=== PATIENT | male | born 1950 | race Caucasian/White ===

== ENCOUNTER 2023-07-28 00:10 | Outpatient (RCR) | payer MEDICARE, SELFPAY ==
[2023-07-14] MEDS: Normal Saline Flush 10 ML SYR IVP (14:00)
[2023-07-28] MEDS: Normal Saline Flush 10 ML SYR IVP (11:31)
== END 2023-08-02 23:59 | disposition home or self-care (01) ==
LOC: INF 00:10
PROVIDERS: PCP Family Medicine; Visit Provider Internal Medicine Hematology & Oncology
DX: Z45.2 Encounter for adjustment and management of vascular access device (principal)
CPT/HCPCS: 96523

== ENCOUNTER 2023-08-25 01:46 | Outpatient (RCR) | payer MEDICARE, SELFPAY ==
[2023-08-11] MEDS: Normal Saline Flush 10 ML SYR IVP (12:02)
[2023-08-25] MEDS: Normal Saline Flush 10 ML SYR IVP (12:05)
== END 2023-09-01 23:59 | disposition home or self-care (01) ==
LOC: INF 01:46
PROVIDERS: PCP Family Medicine; Visit Provider Internal Medicine Hematology & Oncology
DX: Z45.2 Encounter for adjustment and management of vascular access device (principal)
CPT/HCPCS: 96523

== ENCOUNTER 2023-09-22 00:11 | Outpatient (RCR) | payer MEDICARE, SELFPAY ==
[2023-09-08] MEDS: Normal Saline Flush 10 ML SYR IVP (13:34)
[2023-09-22] MEDS: Normal Saline Flush 10 ML SYR IVP (12:40)
== END 2023-10-02 23:59 | disposition home or self-care (01) ==
LOC: INF 00:11
PROVIDERS: PCP Family Medicine; Visit Provider Internal Medicine Hematology & Oncology
DX: Z45.2 Encounter for adjustment and management of vascular access device (principal)
CPT/HCPCS: 96523

== ENCOUNTER 2023-10-06 00:34 | Outpatient (RCR) | payer MEDICARE, SELFPAY ==
--- OUTSIDE RECORDS SUMMARY | 2023-10-06 00:36 | XMS_ITS | Encounter Summary ---
[place] [address] Care Team Providers Care Automotive Software Engineer Name Role Phone Tristen Hunter MD Primary Care Provider [phone] Encounter Details Date Type Department Care Team (Late st Contact Info) Description 09/24/2023 Telephone [place] [phone] Laina Cope Social History Tobacco Use Types Packs/Day Years Used Date Smoking Tobacco: Former Cigarettes 963 - 1992 Smokeless Tobacco: Never Alcohol Use Standard Drinks/Week Comments Yes 7 (1 standard drink = 0.6 oz pur e alcohol) [facility] Utilities Answer Date Recorded In the past 12 months has th e electric, gas, oil, or water company threatened to shut off services in your home? No 06/04/2023 Overall Financial Resource Strain (CARDIA) Answe r Date Recorded How hard is it for you to pa y for the very basics like food, housing, medical care, and heating? Not hard at all 06/04/2023 Hunger Vital Sign Answer Date Recorded Within the past 12 months, y ou worried that your food would run out before you got the money to buy more. Never true 06/04/19 24 Within the past 12 months, t he food you bought just didn't last and you didn't have money to get more. Never true 06/04/2023 PRAPARE - Transportation Answer Date Re corded In the past 12 months, has l ack of transportation kept you from medical appointments or from getting medications? Yes 04/2023 In the past 12 months, has l ack of transportation kept you from meetings, work, or from getting things needed for daily living? No 06/04/2023 Housing Stability Vital Sign Answer Meek e Recorded In the last 12 months, was t here a time when you were not able to pay the mortgage or rent on time? No 06/04/2023 In the last 12 months, how many places have you lived? 1 06/04/2023 In the last 12 months, was t here a time when you did not have a steady place to sleep or slept in a [place] facility (including now)? No 06/04/2023 IPV Inpatient Questions Answer Date Recorded Does Anyone Try to Keep You From Having Contact with Others or Doing Things Outside Your Home? no 07/05/2023 Feels Threatened by Someone no 05/2023 Feels Unsafe at Home or Work/School no 07/05/2023 Physical Signs of Abuse Present no 07/05/2023 Sex and Gender Information Value Date Recorded Sex Assigned at Not on file Gender Identity Not on file Sexual Orientation Not on file documented as of this encounter Miscellaneous Notes * Telephone Encounter - Laina Cope - 09/24/2023 3:51 PM EDT LVM for patient advising 09/26 visit was canceled, when they call back they need B CAR DUP- R TCAR 1Y FU ANA [place] documented in this encounter Plan of Treatment Upcoming Encounters Date Type Department Care Team (Late st Contact Info) Description 10/11/2023 10:00 AM EDT [place] [phone] Giacomo Queen 10/11/2023 11:15 AM EDT Office Visit [place] [phone] Basim Glasgow MD [facility] [place] [address] 10/18/2023 9:00 AM EDT Office Visit Hematology/Oncology at [address] [phone] Cl Hess MD [facility] [place] [address] Yessi Renee [address] HEMATOLOGY AND ONCOLOGY [place], [place] [phone] 10/18/2023 9:30 AM EDT Infusion Hematology Oncology at [address] [phone] 10/24/2023 9:30 AM EDT Scheduled View Only Radiation Oncology at [address] [phone] Rad Nurse, [facility] 10/24/2023 10:00 AM EDT Office Visit Radiation Oncology at [address] [phone] Bigg Peters MD [address] [place] [address] DR RADIATION ONCOLOGY [place], [place] [phone] 11/01/2023 9:00 AM EDT Office Visit Hematology/Oncology at [address] [phone] Cl Hess MD [facility] [place] [address] Yessi Renee [address] HEMATOLOGY AND ONCOLOGY [place], [place] [address] 11/01/2023 9:30 AM EDT Infusion Hematology Oncology at [address] [phone] 12/24/2023 1:00 PM EDT TH Visit (TeleHealth) Radiation Oncology at [address] [address] Ping Moore PA [facility] DR [place] [address] documented as of this encounter Visit Diagnoses Not on filedocumented in this encounter Care Teams Automotive Software Engineer Relationship Specialty Start Date End Date Tristen Hunter MD [address] [place] [address] [place] [address] PCP - General Family Medicine 07/04/23 documented as of this encounter
--- OUTSIDE RECORDS SUMMARY | 2023-10-06 00:36 | XMS_ITS | Encounter Summary ---
Author Organization [facility] Address [facility] [place] [address] Care Team Providers Care Manager Rail Name Role Phone Tristen Hunter MD Primary Care Provider [phone] Encounter Details Date Type Department Care Team (Late st Contact Info) Description 10/01/2023 Orders Only Hematology [place] [address] [facility] [place] [address] Social History Tobacco Use Types Packs/Day Years Used Date Smoking Tobacco: Former Cigarettes 963 - 1992 Smokeless Tobacco: Never Alcohol Use Standard Drinks/Week Comments Yes 7 (1 standard drink = 0.6 oz pur e alcohol) [facility] Utilities Answer Date Recorded In the past 12 months has [employer], gas, oil, or water [employer] threatened to shut off services in your [...] place to sleep or slept in a custodial (including now)? No 06/04/2023 DH IPV Inpatient Questions Answer Date Recorded Does [...] on file documented as of this encounter Plan of Treatment Upcoming Encounters Date Type Department Care Team (Late st Contact Info) Description 10/11/2023 10:00 AM EDT Tech [place] [address] Giacomo Queen 10/11/2023 11:15 AM EDT Office Visit [place] [address] Basim Barr MD [facility] [place] [address] 10/18/2023 9:00 AM EDT Office Visit Hematology/Oncology at [address] [phone] Cl Hess MD [facility] [place] [address] Yessi Renee [address] HEMATOLOGY AND ONCOLOGY [place], [place] [phone] 10/18/2023 9:30 AM EDT Infusion Hematology Oncology at [address] [phone] 10/24/2023 9:30 AM EDT Scheduled View Only Radiation Oncology at [address] [phone] [facility] 10/24/2023 10:00 AM EDT Office Visit Radiation Oncology at [address] [phone] Bigg Peters MD [address] [place] [address] DR RADIATION ONCOLOGY [place], [place] [id number] 11/01/2023 9:00 AM EDT Office Visit Hematology/Oncology at [address] [phone] Cl Hess MD [facility] [place] [place] [address] [address] HEMATOLOGY AND ONCOLOGY [place], [place] [phone] 11/01/2023 9:30 AM EDT Infusion Hematology Oncology at [address] [phone] 12/24/2023 1:00 PM EDT TH Visit (TeleHealth) Radiation Oncology at [address] [phone] Ping Moore PA [facility] [place] [address] documented as of this encounter Visit Diagnoses Not on filedocumented in this encounter Care Teams Manager Rail Relationship Specialty Start Date End Date Tristen Hunter MD [address] [place] [address] [place] [address] PCP - General Family Medicine 07/04/23 documented as of this encounter
--- OUTSIDE RECORDS SUMMARY | 2023-10-06 00:36 | XMS_ITS | Encounter Summary ---
Author Organization [facility] [place] [address] Care Team Providers Care Chief Informatics Officer Name Role Phone Tristen Hunter MD Primary Care Provider [phone] Encounter Details Date Type Department Care Team (Latest Contact Info) Description 10/04/2023 Travel Social History Tobacco Use Types Packs/Day Years Used Date Smoking Tobacco: Former Cigarettes 4 30 1 963 1992 Smokeless Tobacco: Never Alcohol Use Standard Drinks/Week Comments Yes 7 (1 standard drink = 0.6 oz pur e alcohol) [facility] Utilities Answer Date Recorded In the past 12 months has e electric, gas, oil, or water company [...] place to sleep or slept in a intermediate (including now)? No 06/04/2023 IPV Inpatient Questions [...] AM EDT Tech [place] [address] Giacomo Queen 10/11/2023 11:15 AM EDT Office [place] [address] Basim Barr MD [facility] [place] [address] 10/18/2023 9:00 AM EDT Office Visit Hematology/Oncology at [address] [phone] Cl Hess MD [facility] [place] [place] [address] Yessi Renee APRN [address] [place] [address] DR HEMATOLOGY AND ONCOLOGY [place], [place] [phone] 10/18/2023 9:30 AM EDT Infusion Hematology Oncology at [address] [phone] 10/24/2023 9:30 AM EDT Scheduled View Only Radiation Oncology at [address] [phone] [facility] 10/24/2023 10:00 AM EDT Office Visit Radiation Oncology at [address] [phone] Bigg Peters MD [address] [place] [address] DR RADIATION ONCOLOGY [place], [place] [id number] 11/01/2023 9:00 AM EDT Office Visit Hematology/Oncology at [address] [phone] Cl Hess MD [facility] [place] [place] [address] Yessi Renee APRN [address] [place] [address] DR HEMATOLOGY AND ONCOLOGY [place], [place] [phone] 11/01/2023 9:30 AM EDT Infusion Hematology Oncology at [address] [phone] 12/24/2023 1:00 PM EDT TH Visit (TeleHealth) Radiation Oncology at [address] [phone] Ping Moore PA [facility] DR [place]EMATOLOGY [place] [address] documented as of this encounter Visit Diagnoses Not on filedocumented in this encounter Care Teams Chief Informatics Officer Relationship Specialty Start Date End Date Tristen Hunter MD [address] [place] [address] [place] [address] PCP - General Family Medicine 07/04/23 documented as of this encounter
--- OUTSIDE RECORDS SUMMARY | 2023-10-06 00:36 | XMS_ITS | Encounter Summary ---
Author Organization [facility] [place] [address] Care Team Providers Care Certified Nursing Assistant Instructor Name Role Phone Tristen Hunter MD Primary Care Provider [phone] Encounter Details Date Type Department Care Team (Latest Contact Info) Description 09/20/2023 10:00 AM EDT Clinical Support Hematology/Oncology at [address] [phone] [facility] DR [place] [address] Malignant neoplasm of head of pancreas Social History Tobacco Use Types Packs/Day Years Used Date Smoking Tobacco: Former Cigarettes 4 30 1 963 - 1992 Smokeless Tobacco: Never Alcohol Use Standard Drinks/Week Comments Yes 7 (1 standard drink = 0.6 oz pur e alcohol) [facility] Utilities Answer Date Recorded In the past 12 months has [employer], gas, oil, or water [employer] threatened to shut off services in your [...] place to sleep or slept in a detention (including now)? No 06/04/2023 DH IPV Inpatient [...] on file documented as of this encounter Progress Notes * Lupe Velasquez, RD - 09/20/2023 10:00 AM EDT Nutrition Note Spoke with Wero in infusion today. Patient is being starting C6 of Mfolfirinox for pancreatic cancer. Patient requested omission of dexamethasone. Plan for 8 cycles prior to XRT. Patient reports he is eating well and has a good appetite. His weight continues to trend up, with a3# gain in past two weeks 09/05-09/19 and up a total of 28# in past 2.5 months. Patient got a new phone which connects with his Dexcom CGM and can report his BG to him aloud. He had been relying on his brother to read his BG values to him. He has been taking 36 units Lantus in morning and 4-12 units short acting insulin four times daily. Patient his taking Creon 24: 2-3 units per meal (recently increased this from always 2 per meal). He has 1-2 BM's per day which he calls formed. He cannot see well to evaluate appearance of stools indetail. He says he continues to have very foul smelling gas. He has tried Gas-X and Guerrero-O for thisbut neither seem to help. Wt Readings from Last 10 Encounters: 09/20/23 92.4 kg (203 lb 12.8 oz) 09/06/23 91 kg (200 lb 9.6 oz) 08/23/23 85.7 kg (189 lb) 08/09/23 85.1 kg (187 lb 9.6 oz) 07/26/23 83.7 kg (184 lb 9.6 oz) 07/12/23 82.5 kg (181 lb 12.8 oz) 07/05/23 79.8 kg (176 lb) 06/07/23 83 kg (183 lb) 07/31/22 103.9 kg (229 lb) 09/21/21 106.3 kg (234 lb 6.4 oz) BMI 28.43 3# gain 09/05-09/19 28# re-gain in past 2.5 months 07/04-09/19 44# (23.2% body weight) loss over past year 07/31/22-07/05/23 Lost 85# total per patient Diet: Breakfast: corned beef hash, 2 eggs, biscuits OR 1/4 pound hot sausage 2 eggs. Takes 3 with this. Lunch: 4 slices of balogne with 2-3 slices of cheese (no bread) 2 creon Dinner: Brother cooks, pork chop with rice and gravy. 3 Creon Drinking 2-3 L fluids daily, mostly water Medications: Creon 24 (2-3 with meals and 1 with snacks), long acting insulin (36 units in AM), SS insulin, zofran prn, compazine prn, imodium, chlorthalidone, omeprazole, tamsulosin, omega 3, amlodipine, carvedilol, lisinopril, folic acid, imdur, lipitor, aspirin Labs on 09/19: H/H 10.4/32, platelets 152,000, BUN/Creat 17/0.69, BG 106 on dexcom this AM, Cl 108 Nutrition Problem: Involuntary weight loss and altered GI function related to pancreatic cancer as evidenced by PERT (Creon 24: 2 per meal and one per snack) and 44# (23.2% body weight) loss over past year 07/31/22-07/05/23 Improved weight (28# re-gain in past 2.5 months) but still having malodorous gas Recommendations: Continue with adequate intake of meals and snacks, though with attention to consistent carbohydrateintake and limiting added sugars for glycemic control as patient has IDDM. He can now more closely monitor his BG himself with CGM connecting to his new phone. Creon 24: suggested taking 3 per meal consistently, instead of 2-3. His meals sound fairly high in fat content, so may need to further increase to 4 per meal if his gas problem persists. Would suggest 1-2 capsules per snack. Will f/u on 10/03 documented in this encounter Plan of Treatment Upcoming Encounters Date Type Department Care Team (Late st Contact Info) Description 10/11/2023 10:00 AM EDT Tech [place] [address] Giacomo Queen 10/11/2023 11:15 AM EDT Office Visit [place] [address] Basim Barr MD [facility] [place] [place] [address] 10/18/2023 9:00 AM EDT Office Visit Hematology/Oncology at [address] [phone] Cl Hess MD [facility] [place] [address] Yessi Renee APRN [address] [place] [address] DR HEMATOLOGY AND ONCOLOGY [place], [place] [phone] 10/18/2023 9:30 AM EDT Infusion Hematology Oncology at [address] [phone] 10/24/2023 9:30 AM EDT Scheduled View Only Radiation Oncology at [address] [phone] [facility] 10/24/2023 10:00 AM EDT Office Visit Radiation Oncology at [address] [phone] Bigg Peters MD [address] [place] [address] DR RADIATION ONCOLOGY [place], [place] [phone] 11/01/2023 9:00 AM EDT Office Visit Hematology/Oncology at [address] [phone] Cl Hess MD [facility] [place] [address] Yessi Renee APRN [address] [place] [address] DR HEMATOLOGY AND ONCOLOGY [place], [place] [phone] 11/01/2023 9:30 AM EDT Infusion Hematology Oncology at [address] [phone] 12/24/2023 1:00 PM EDT TH Visit (TeleHealth) Radiation Oncology at [address] [phone] Ping Moore PA [facility] [place] [address] documented as of this encounter Visit Diagnoses Diagnosis Malignant neoplasm of head of pancreas documented in this encounter Care Teams Certified Nursing Assistant Instructor Relationship Specialty Start Date End Date Tristen Hunter MD [address] [place] [address] [place] [address] PCP - General Family Medicine 07/04/23 documented as of this encounter
--- OUTSIDE RECORDS SUMMARY | 2023-10-06 00:36 | XMS_ITS | Encounter Summary ---
Author Organization [facility] [place] [address] Care Team Providers Care Sheet Cutter Name Role Phone Tristen Hunter MD Primary Care Provider [phone] Encounter Details Date Type Department Care Team (Late st Contact Info) Description 10/04/2023 10:00 AM EDT Clinical Support Hematology/Oncology at [address] [phone] [facility] DR [place] [address] Arrived Social History Tobacco Use Types Packs/Day Years Used Date Smoking Tobacco: Former Cigarettes 4 30 1 1992 Smokeless Tobacco: Never Alcohol Use Standard Drinks/Week Comments Yes 7 (1 standard drink = 0.6 oz pur e alcohol) [facility] Utilities Answer Date Recorded In the past 12 months has [employer], gas, oil, or water [employer] threatened to shut off services in your [...] place to sleep or slept in a usp (including now)? No 06/04/2023 IPV Inpatient Questions [...] AM EDT Tech [place] [address] Giacomo Queen 10/11/2023 11:15 AM EDT Office [place] [address] Basim Barr MD [facility] [place] [address] 10/18/2023 9:00 AM EDT Office Visit Hematology/Oncology at [address] [phone] Cl Hess MD [facility] [place] [address] Yessi Renee [address] HEMATOLOGY AND ONCOLOGY [place], [place] [id number] 10/18/2023 9:30 AM EDT Infusion Hematology Oncology at [address] [phone] 10/24/2023 9:30 AM EDT Scheduled View Only Radiation Oncology at [address] [phone] [facility] 10/24/2023 10:00 AM EDT Office Visit Radiation Oncology at [address] [phone] Bigg Peters MD [address] [place] [address] DR RADIATION ONCOLOGY [place], [place] [id number] 11/01/2023 9:00 AM EDT Office Visit Hematology/Oncology at [address] [phone] Cl Hess MD [facility] [place] [address] Yessi Renee [address] HEMATOLOGY AND ONCOLOGY [place], [place] [id number] 11/01/2023 9:30 AM EDT Infusion Hematology Oncology at [address] [phone] 12/24/2023 1:00 PM EDT TH Visit (TeleHealth) Radiation Oncology at [address] [phone] Ping Moore PA [facility] [place] [address] documented as of this encounter Visit Diagnoses Not on filedocumented in this encounter Care Teams Sheet Cutter Relationship Specialty Start Date End Date Tristen Hunter MD [address] [place] [address] [place] [address] PCP - General Family Medicine 07/04/23 documented as of this encounter
--- OUTSIDE RECORDS SUMMARY | 2023-10-06 00:36 | XMS_ITS | Encounter Summary ---
Author Organization [facility] Address [facility] [place] [address] Care Team Providers Care Milling Machinist Name Role Phone Tristen Hunter MD Primary Care Provider [phone] Reason for Referral * Diagnostic Test (Routine) - Authorized Specialty Diagnoses / Procedures Referred By Marques livignston Referred To Contact Radiology Diagnoses Malignant neoplasm of head of pancreas Procedures CT Chest Abdomen Pelvis w Contrast (Generic) Cl Hess MD [facility] [place] [address] Referral ID Status Reason Start Date Expiration Date Visits Requested Visits Authorized [id number] Authorized Specialty Service Requested 10/04/2023 04/05/2025 1 1 Encounter Details Date Type Department Care Team (Late st Contact Info) Description 10/04/2023 9:00 AM EDT Office Visit Hematology/Oncology at [address] [phone] Cl Hess MD [facility] [place] [address] Yessi Renee, [address] HEMATOLOGY AND ONCOLOGY [place], [place] [id number] Malignant neoplasm of head of pancreas Social History Tobacco Use Types Packs/Day Years Used Date Smoking Tobacco: Former Cigarettes 4 30 1 963 - 1992 Smokeless Tobacco: Never Alcohol Use Standard Drinks/Week Comments Yes 7 (1 standard drink = 0.6 oz pur e alcohol) [facility] Utilities Answer Date Recorded In [...] place to sleep or slept in a long-term (including now)? No 06/04/2023 DH IPV Inpatient [...] on file documented as of this encounter Last Filed Vital Signs Vital Sign Reading Time Taken Comments Blood Pressure 115/61 10/04/2023 9:03 AM EDT Pulse 71 10/04/2023 9:03 AM EDT Temperature 36.7 ??C (98 ??F) 10/04/2023 9:03 AM EDT Respiratory Rate 18 10/04/2023 9:03 AM EDT Oxygen Saturation 99% 10/04/2023 9:03 AM EDT Inhaled Oxygen Concentration - - Weight 91.5 kg (201 lb 12.8 oz) 10/04/2023 9:03 AM EDT Height 180.2 cm (5' 10.95) 10/04/2023 9:03 AM E DT Body Mass Index 28.19 10/04/2023 9:03 AM EDT documented in this encounter Progress Notes * Cl Hess MD - 10/04/2023 9:00 AM EDT Subjective Patient ID: Wero Sadler is 73 y.o. Problem List: Pancreatic cancer, T3 (per EUS report), N0 M0 A. Reportedly was noted to have a cystic lesion in the head of the pancreas in 2020(CT and MRI wereconcerning for IPMN). F/u imaging was recommended for two years followed by annual and then every two years, but not done. B. Presented 04/2023 with midsternal chest pain and SOB and had jaundice. Imaging showed a pancreatic head cystic mass, 3.8 cm with biliary and pancreatic ductal dilation MRI abd 04/19/23 - Impression: Biliary ductal dilation and pancreatic ductal dilation. Pancreatic head cystic mass present in the area 3.8 cm, however unclear if this is the site of obstruction. Recommend EUS/ERCP and tissue sampling to evaluate this cystic mass and to detect an MRI occult periampullary solid mass. Upper EUS 04/29/23: There is a large partially cystic and partially solid mass lesion of the pancreatic head measuring 51 x 26.4 mm. The solid component portion of this mass lesions, where there is cut off of the bile duct with associated stricture, measures 34.1 x 27.1 mm. This solid component demonstrates hypoechoicchange and outer margin irregularity consistent with T3 disease. There is a segment of loss of interface with the SMV. No involvement of the SMA or IVC was appreciated. No obvious portal vein involvement was noted. No periduodenal or perilesional adenopathy was appreciated Impression: [id number] pancreas head mass lesion with biliary and pancreatic ductal dilation Path - Head of pancreas mass, biopsy: Scant epithelium with mild atypia, suspicious for adenocarcinoma ERCP with sphincterotomy and metal stent placement C. CT chest 05/22/23 - IMPRESSION: No clear evidence of metastatic disease to the thorax. Peripheral areas of scarring and micronodules. Bibasilar round atelectasis and pleural irregularity, likely pleural parenchymal scarring. CT abd 05/22/23 - IMPRESSION: Ill-defined hypoenhancing solid masslike lesion in head of pancreas associated with a cystic lesion, suspicious for pancreatic neoplasm. There is adjacent contour abnormality of the portosplenic confluence/SMV and less than 180 degree abutment of the SMA. Additionally, there is possible adjacent duodenal involvement with findings suggestive of partial gastroduodenal obstruction. Correlate with recent performed endoscopy. No evidence of distant metastatic disease in the abdomen. PET scan 05/27/23 - Impression: 1. Activity at the pancreatic head which could be reactive to the new metallic biliary stent or active primary neoplasm, correlate with ERCP results 2. No pathologic uptake to suggest active distant metastasis D. GITB 06/18/23. Imaging:CT from 05/2023 reviewed. Will request second read. There is a 3.5 x 2.8 soft tissue lesion with an adjacent cystic lesion. The soft tissue component appears to be associated with 90-180 degree abutment of the SMA and abutment of the SMV. The cystic lesion abuts the portal vein. There is no definite evidence of metastatic disease. The primary tumor is considered borderlineresectable Pathology/Histology: requested, not available for review Stage: Clinical Data (Exams, Labs, etc.): Molecular Pathology Results:not available Clinical Trial Availability: None Options Discussed: Recommendations: Referral to pancreatobiliary surgery for assessment of medical resectability (again primary is considered borderline resectable). Per Dr. Balbuena, recommend diagnostic laparoscopy. Assuming no evidence of metastatic disease, recommend neoadjuvant chemotherapy x 4 months, followed by radiation and re-evaluation for surgery - assuming no evidence of metastatic disease/disease progression on interim staging evaluation. E. [facility] second read of CT c/a/p from 05/22/23 - IMPRESSION 1. Mixed cystic and solid mass centered in the pancreatic head, as detailed above. 2. Few scattered sub-5 mm pulmonary nodules are indeterminate. These are likely of an infectious orinflammatory etiology, but do remain indeterminate in the setting of a primary malignancy. Attention on follow-up is recommended. F. Diagnostic laparoscopy 07/05/23 - Findings: There was no evidence of metastatic disease. G. 07/12/23 - Began therapy with mFolfirinox H. CT c/a/p 09/02/23 Chest - Impression: 1. Debris within the trachea 2. Trace right pleural effusion. Bibasilar reticular markings similar to prior study 3. Coronary artery disease. Atherosclerotic disease Abd/pelvis - Impression: 1. Dilated air filled intrahepatic biliary ducts and dilated pancreatic duct with cystic lesion in the pancreatic head similar to prior study. Biliary stent in place 2. Markedly distended contrast and food filled stomach 3. Constipation 2. Colorectal cancer S/p resection in 2008 S/p adjuvant chemotherapy with Fluorouracil (no oxaliplatin per patient) 3. Diabetes mellitus 4. Hypercholesterolemia 5. Hypertension 6. ASCVD (arteriosclerotic cardiovascular disease) S/p 3x CABG 7. Primary osteoarthritis of hip s/p L JIMI, posterior, Dr. Wu, 10/10/20 S/p R JIMI S/p bilateral TKA 8. Malignant neoplasm of prostate Per Dr. Peters's note - High Risk Prostate Cancer (Gl 6, PSA 21, cT1c / mrT3a) S/p ADT and radiation Completed RT 09/2021 PSA 06/2022 - 0.05 9. Obstructive sleep apnea syndrome; per pt this has been better since he lost weight 10. 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 PVDz S/p bilateral carotid endarterectomy S/p bilateral femoral endarterectomies 13. History of cerebrovascular accident Lost his vision in his right eye 2019 due to CVA HPI Wero Sadler is seen for evaluation and management of pancreatic cancer. The history is summarized above. On 07/12/23, he began therapy with mFolfirinox, s/p 6 cycle. Wero is by himself in clinic today. He is doing well and tolerating chemotherapy well. No significant problems with nausea. He is eating well and his weight is in the same range allowing for fluctuation. His BS's have been better controlled although he has had some low values. His AM Tresiba insulin has been lowered as a result and that has helped. His stools tend to be loose and he goes a couple of times per day. He is taking creon with meals (2 with meals and 1 snacks). 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 He has had some cold sensitivity but overall no worsening of symptoms. 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 Constitutional: General: He is not in acute distress. HENT: Head: Normocephalic and atraumatic. Eyes: General: No scleral icterus. Cardiovascular: Rate and Rhythm: Normal rate. Pulmonary: Effort: No respiratory distress. Musculoskeletal: General: No swelling. Skin: General: Skin is warm and dry. Findings: No rash. Neurological: General: No focal deficit present. Mental Status: He is alert. Coordination: Coordination normal. Psychiatric: Mood and Affect: Mood normal. Labs: WBC/ANC - 4., Hgb/Hct - 10.1/31.7, Plts - 170,000. BUN/Cr - 16/0.69. Alb - 3.3. Lytes and LFTs, o/w unremarkable CA 19-9 10/03/23 09/19/23 151 08/30/23 242 08/08/23 317 07/26/23 06/25/23 390 05/22/23 684.7 Assessment and Plan Weor Sadler is 73 yo, seen for evaluation and management of pancreatic cancer. He has a h/o multiple medical problems as above, including colon cancer, prostate cancer, ASCVD, PVDz s/p carotid endarterectomy, prior CVA, DM and others. 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 While in [facility], he presented with chest pain and SOB and was jaundiced. Imaging showed a cystic pancreatic head mass. An Upper EUS was done on 04/29/23 and showed a large partially cystic and partially solid mass lesion of the pancreatic head with SMV abutment. Bx of the pancreatic head mass was read as suspicious for adenocarcinoma. An ERCP with stent placement was performed the same day. Staging CT c/a/p did not show evidence of metastatic disease. Micronodules were noted in the lungs. The primary tumor was associated with adjacent contour abnormality of the portosplenic confluence/SMV and less than 180 degree abutment of the SMA. There was possible adjacent duodenal involvement with findings suggestive of partial gastroduodenal obstruction. He met with [facility] in [place] Per patient, the tumor was felt to be surgically removable, although he says that upfront chemotherapy was also discussed. We met on 06/07/23. Pathology was requested for review at [facility] and we also requested that images be sent. We discussed a plan to review his case and images at our GI Tumor Board for assessment of resectablity and for a referral to Dr. Balbuena or Dr. Espinosa. We discussed that we generally recommend a diagnostic laparoscopy to complete the staging. Assuming no evidence of metastatic disease, our approachto therapy is generally one of neoadjuvant chemotherapy x 4 months with restaging at 2 and 4 months. Assuming no evidence of distant metastatic disease, radiation may be recommended depending on the resectability determination. There would then be an evaluation for surgery. We talked about systemic therapy options, including mFolfirinox and gemcitabine/abraxane. For patients with good PS, our preference is generally for mFolfirinox. Our thought is for mFolfirinox. I have concerns about his pre- existing neuropathy which we will need to follow closely and will consider r educing the oxaliplatin dose. We reviewed the schedule of therapy with mFolfirinox (irinotecan, oxaliplatin and leucovorin are given day 1 followed by a 48 hour infusion of 5FU with cycles repeated every two weeks; irinotecan dose is 150 mg/m2 and there is no bolus 5FU on day 1). Because of the infusional component of therapy, a mediport is required. This is generally placed at the time of laparoscopy. We talked about potential side effects of therapy, including alopecia, nausea/vomiting, diarrhea, stomatitis, dehydration, taste change, fatigue, myelosuppression with associated risks of infection, bleeding and dose delays, peripheral neuropathy which may be exacerbated by cold exposure but which may be cumulative or perm anent even in the absence of cold, hypersensitivity reactions, angina/NC and others. He was given an informational handout regarding mFolfirinox. We reviewed his case at [facility] on 06/18/23. The Ct from 05/22/23 was available for review. There is a mixed cystic and solid lesion centered at the pancreatic head. The solid component abuts the SMA, less than 180 degrees. The cystic component is associated with mass effect upon the SMV and portal veinwithout luminal narrowing. The primary tumor was considered borderline resectable. The recommendation was for a diagnostic laparoscopy to complete the staging. Assuming no evidence of metastatic disease, consider neoadjuvant chemotherapy x 4 months followed by radiation and then re-evaluation for surgery assuming no evidence of disease progression or metastatic disease on restaging. He met with Dr. Balbuena on 06/25/23. He felt the tumor was resectable but did recommend neoadjuvant therapy. A diagnostic laparoscopy was done on 07/05/23 - no evidence of metastatic disease. A mediport was placed the same day. PGX showed no variant in DPYD. 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 Per our Clinical Pharmacist, a 30% reduction in irinotecandose is recommended. A referral was made to the [facility] for discussion of genetic testing and he met with Tao Cardenas on 06/13/23. The plan was for a blood draw in [place] once he starts his infusions. If genetic testing showed a BRCA or PALB2 mutation, he may be eligible for a clinical trial looking at theuse olaparib following completion of chemotherapy and surgery to see if this improves RFS. He will be followed also by our clinical oil driller, Lupe Velasquez. On 07/12/23 he began neoadjuvant therapy with mFolfirinox. 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 He has received 6 cycles. He is tolerating therapy well. We will go ahead with cycle 7 today and see him intwo weeks for consideration of cycle 8. That would be the last planned cycle of therapy. We will get a CT after that and, assuming that is ok, plan for radiation. documented in this encounter Plan of Treatment Upcoming Encounters Date Type Department Care Team (Late st Contact Info) Description 10/11/2023 10:00 AM EDT Tech [place] [phone] Giacomo Queen 10/11/2023 11:15 AM EDT Office Visit V[place] [phone] Basim Barr MD [facility] [place] [address] 10/18/2023 9:00 AM EDT Office Visit Hematology/Oncology at [address] [phone] Cl Hess MD [facility] [place] [address] Yessi Renee APRN [address] [place] [address] DR HEMATOLOGY AND ONCOLOGY [place], [place] [phone] 10/18/2023 9:30 AM EDT Infusion Hematology Oncology at [address] [phone] 10/24/2023 9:30 AM EDT Scheduled View Only Radiation Oncology at [address] [phone] St La Nena Champagne 10/24/2023 10:00 AM EDT Office Visit Radiation Oncology at [address] [phone] Bigg Peters MD [address] [place] [address] DR RADIATION ONCOLOGY [place], [place] [id number] 11/01/2023 9:00 AM EDT Office Visit Hematology/Oncology at [address] [phone] Cl Hess MD [facility] [place] [address] Yessi Renee APRN [address] [place] [address] DR HEMATOLOGY AND ONCOLOGY [place], [place] [phone] 11/01/2023 9:30 AM EDT Infusion Hematology Oncology at [address] [phone] 12/24/2023 1:00 PM EDT TH Visit (TeleHealth) Radiation Oncology at [address] [phone] Ping Moore PA [facility] [place] [address] Scheduled Orders Name Type Priority Associated Diagnoses Orde r Schedule CT Chest Abdomen Pelvis w Contrast (Generic) Imaging Routine Malignant neoplasm of head of pancreas Expected: 10/29/2023 (Approximate), Expires: 04/29/2024 documented as of this encounter Visit Diagnoses Diagnosis Malignant neoplasm of head of pancreas documented in this encounter Care Teams Milling Machinist Relationship Specialty Start Date End Date Tristen Huntre MD [address] [place] [address] [place] [address] PCP - General Family Medicine 07/04/23 documented as of this encounter
--- OUTSIDE RECORDS SUMMARY | 2023-10-06 00:36 | XMS_ITS | Encounter Summary ---
Author Organization [facility] Address [facility] [place] [address] Care Team Providers Care Principal Systems Architect Name Role Phone Tristen Hunter MD Primary Care Provider [phone] Reason for Visit * Reason Comments Chemotherapy * Treatment/Therapy Plan Authorization (Routine) - Authorized Specialty Diagnoses / Procedures Referred By Marques livingston Referred To Contact Diagnoses Malignant neoplasm of prostate Cl Hess MD [facility] [place] [address] Stj Hem Onc Infusion [address] [place] [phone] Referral ID Status Reason Start Date Expiration Date V isits Requested Visits Authorized [id number] Authorized 07/11/2023 07/10/2024 99 99 Encounter Details Date Type Department Care Team (Late st Contact Info) Description 10/04/2023 9:30 AM EDT Infusion Hematology Oncology at [address] [phone] Malignant neoplasm of prostate Social History Tobacco Use Types Packs/Day Years Used Date Smoking Tobacco: Former Cigarettes 1992 Smokeless Tobacco: Never Alcohol Use Standard Drinks/Week Comments Yes 7 (1 standard drink = 0.6 oz pur e alcohol) [facility] Utilities Answer Date Recorded In the past 12 months has [employer] electric, gas, oil, or water company threatened [...] place to sleep or slept in a senior living (including now)? No 06/04/2023 DH IPV Inpatient [...] as of this encounter Progress Notes * Booker Maldonado, RN - 10/04/2023 9:30 AM EDT INFUSION THERAPY ADMINISTRATION NOTES DIAGNOSIS: Pancreatic CA CYCLE #: C7D1 REASON FOR VISIT: MODIFIED FOLFIRINOX infusion and initiation of continuous home 5FU infusion via CADD pump provided by [employer] Conteh met with MD Hess prior to infusion. Dex as premed was held per Marilee. No further complaints. OBJECTIVE LAB DATA: Labs reviewed and found adequate for treatment. BUN 16; Creat 0.69; WBC 4.0; PLT 170; ANC2.5 Pre administration: Chemotherapy orders independently verified for drug name, route, and dosage per patient's height, weight and BSA by BOOKER FRANCOIS, RN , Larisa Henry RN , Olga Arshad RN, and Leandra Johnson At time of administration Patient identity verified using patient's name and date of at the chair/bedside by double RN check with Roberto Arshad RN just prior to initiating the patient's home infusion chemotherapy via CADDpump provided by [employer]. Amount infused verified by double RN check after 15 minutes and appropriate amount had infused. 0.7 ccs went in. Pt will be disconnected at [facility] on Saturday10/06/23 at 1230 pm. REACTIONS (DESCRIPTION, TIME, INTERVENTION AND EFFECTIVENESS) none ASSESSMENT Wero was awake, alert and tolerated treatment well. Port checked for good blood return and patency per use. PLAN Pump disconnect at [facility] Saturday documented in this encounter Plan of Treatment Upcoming Encounters Date Type Department Care Team (Late st Contact Info) Description 10/11/2023 10:00 AM EDT Tech [place] [phone] Giacomo Queen 10/11/2023 11:15 AM EDT Office [place] [address] Basim Barr MD [facility] [place] [address] 10/18/2023 9:00 AM EDT Office Visit Hematology/Oncology at [address] [phone] Cl Hess MD [facility] [place] [address] Yessi Renee APRN [address] [address] DR [place] [address] 10/18/2023 9:30 AM EDT Infusion Hematology Oncology at [address] [phone] 10/24/2023 9:30 AM EDT Scheduled View Only Radiation Oncology at [address] [phone] Rad NurseSt Deutsch 10/24/2023 10:00 AM EDT Office Visit Radiation Oncology at [address] [phone] Bigg Peters MD [address] [address] DR RADIATION ONCOLOGY [place], [place] [address] 11/01/2023 9:00 AM EDT Office Visit Hematology/Oncology at [address] [phone] Cl Hess MD [facility] [place] [address] HEMATOLOGY AND ONCOLOGY [place], [place] [address] 11/01/2023 9:30 AM EDT Infusion Hematology Oncology at [address] [phone] 12/24/2023 1:00 PM EDT TH Visit (TeleHealth) Radiation Oncology at [address] [phone] Ping Moore PA [facility] [place] [address] documented as of this encounter Visit Diagnoses Diagnosis Malignant neoplasm of prostate documented in this encounter Administered Medications Inactive Administered Medications - up to 3 most recent administrations Medication Order MAR Action Action Date Dose Rate Site aprepitant (Cinvanti) (7.2 mg/mL) injection emulsion 130 mg 130 mg, Intravenous, Administer over 2 Minutes, ONCE, 1 dose, On Sat10/04/23 at 0945, Alternative administration of IV push over 2 minutes is a recommendation from the courier driver. Administer prior to chemotherapy., Routine Given 10/04/2023 10:09 AM EDT 130 mg atropine (0.1 mg/mL) injection 0.5 mg 0.5 mg, Intravenous, Administer over 1 Minutes, ONCE, 1 dose, On Sat10/04/23 at 0945, Administer prior to IRINOtecan, Routine Given 10/04/2023 12:59 PM EDT 0.5 mg fluorouraciL (AdruciL) in sodium chloride 0.9% 138 mL infusion (46 Hour - For Home Use) 5,160 mg 5,160 mg (2,400 mg/m2/dose ? 2.15 m2 Treatment Plan BSA from Recorded weight), Intravenous, ONCE, 1 dose, On Sat10/04/23 at 1415, Administer over 46 Hours, Warning Vesicant/Irritant Medication To be infused via an ambulatory infusion CADD Colon pump continuously IV at 3 mL/hr for 46 hours. Pump contains a 46 hour supply and provides a daily dose of 1,200 mg/m2/day = 2,400 mg/m2 IV over 46 hours. Given 10/04/2023 2:47 PM EDT 5,160 mg 3 mL/hr IRINOtecan (Camptosar) 220 mg in dextrose 5% 511 mL infusion 220 mg (rounded from 225.75 mg = 105 mg/m2/dose ? 2.15 m2 Treatment Plan BSA from Recorded weight), Intravenous, ONCE, 1 dose, On Sat10/04/23 at 1045, Administer over 90 Minutes, Warning Vesicant/Irritant Medication Administer 30 minutes after the start of the leucovorin. New Bag 10/04/2023 1:02 PM EDT 220 mg 340.7 mL/hr leucovorin (Wellcovorin) 350 mg in dextrose 5% 85 mL infusion 350 mg, Intravenous, ONCE, 1 dose, On Sat10/04/23 at 1045, Administer over 120 Minutes, Administer upon completion of OXALIplatin infusion. Do not administer at a rate faster than 160 milligrams/minute. New Bag 10/04/2023 12:22 PM EDT 350 mg 42.5 mL/hr OXALIplatin (Eloxatin) 150 mg in dextrose 5% 280 mL infusion 150 mg (rounded from 146.2 mg = 68 mg/m2/dose ? 2.15 m2 Treatment Plan BSA from Recorded weight), Intravenous, ONCE, 1 dose, On Sat10/04/23 at 1045, Administer over 85 Minutes, Administer first. Compatible with dextrose-containing solution only. Warning Vesicant/Irritant Medication New Bag 10/04/2023 10:45 AM EDT 150 mg 197.6 mL/hr palonosetron (Aloxi) (0.05 mg/mL) injection 0.25 mg 0.25 mg, Intravenous, ONCE, 1 dose, On Sat10/04/23 at 0945, Administer over 30 seconds., Routine Given 10/04/2023 10:05 AM EDT 0.25 mg documented in this encounter Care Teams Principal Systems Architect Relationship Specialty Start Date End Date Tristen Hunter MD [address] [place] [address] [place] [address] PCP - General Family Medicine 07/04/23 documented as of this encounter
--- OUTSIDE RECORDS SUMMARY | 2023-10-06 00:36 | XMS_ITS ---
[place] [address] Care Team Providers Care Major Sales Associate Name Role Phone Tristen Hunter MD Primary Care Provider Active Problems Problem Noted Date Diagnosed Date Malignant neoplasm of head of pancreas 4 Bradycardia 11/18/2021 Bladder dysfunction/retention with risk of stret ch injury 11/18/2021 s/p Right JIMI (Posterior), Dr. 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 05/04/2021 Anterior ischemic optic neuropathy 05/04/2021 Carcinoma of prostate 05/04/2021 Dysphagia 05/04/2021 Hearing loss 05/04/2021 History of cerebrovascular accident 05/04/2021 History of claudication 05/04/2021 BPH (benign prostatic hyperplasia) 02/02/2021 Obstructive sleep apnea syndrome 01/27/2021 Malignant neoplasm of prostate 01/16/2021 Cancer Staging:Clinical:Stage IIIA(cT1c, cN0, cM0, PSA: 21.6, Grade Group: 1) - Signed by Bigg Peters MD on 01/18/2021 Benign prostatic hyperplasia 01/16/2021 Postoperative urinary retention 10/12/2020 Primary osteoarthritis of left hip 10/10/2020 s/p L JIMI, posterior, Dr. Wu, 10/10/20 08/0 11/2020 ASCVD (arteriosclerotic cardiovascular disease) 10/06/2020 History of carotid endarterectomy 08/18/2020 Colorectal cancer 07/22/2019 Diabetes mellitus 07/22/2019 Hypercholesterolemia 07/22/2019 Hypertension -Labile blood pressurses 07/22/2019 Current Oncology Plans BCN AMB ONC GI PANCREATIC CANCER - MODIFIED FOLFIRINOX (IRINOtecan 150 MG/M2) * Plan Start Date:07/12/2023 Plan Provider:Cl Hess MD Linked Problems Malignant neoplasm of prosta te Treatment Medications Current Day (Day 1 , Cycle 8 - Planned for 10/18/2023) Next Day (Day 3, Cycle 8 - Planned for 10/20/2023) fluorouraciL (AdruciL) in sodium chloride 0.9% 138 mL infusion (46 Hour - For Home Use)IRINOtecan (Camptosar) in dextrose 5% 500 mL infusionIRINOtecan (Camptosar) Recon Solnleucovorin (Wellcovorin) in dextrose 5% or sodium chloride 0.9% for infusionoxaliplatin (Eloxatin)OXALIplatin (Eloxatin) in dextrose 5% 250 mL infusionPump Disconnect: Home Infusion fluorouraciL (AdruciL) in sodium chloride 0.9% 138 mL infusion (46 Hour - For Home Use) 5,160 mgIRINOtecan (Camptosar) 220 mg in dextrose 5% 511 mL infusionleucovorin (Wellcovorin) 350 mg in dextrose 5% 85 mL infusionOXALIplatin (Eloxatin) 150 mg in dextrose 5% 280 mL infusion Home Infusion: Pump Disconnect LEUPROLIDE (LUPRON DEPOT) 7.5 MG MONTH* Plan Start Date:01/31/2021 Plan Provider:Bigg Peters MD Linked Problems Malignant neoplasm of prosta te Treatment Medications No medications scheduled. ?LEUPROLIDE (LUPRON DEPOT) 22.5 MG EVERY 3 MONTH* Plan Start Date:06/28/2021 Plan Provider:Bigg Peters MD Linked Problems Malignant neoplasm of prosta te Treatment Medications No medications scheduled. Past Plans Therapy Plan 1 Plan Name Start Date Discontinue Date Treatment Medications Discontinue Reason Plan Provider LEUPROLIDE (LUPRON DEPOT) 7.5 MG MONTH 02/03/2021 01/30/2021 No medications scheduled. Plan is Being Renewed Bigg Peters MD Radiation Treatments * No radiation treatments are documented for this patient in [facility]. Treatments may have been administered in another system.
--- OUTSIDE RECORDS SUMMARY | 2023-10-06 00:36 | XMS_ITS | Encounter Summary ---
Author [facility] [place] [address] Care Team Providers Care Movie Extra Name Role Phone Tristen Hunter MD Primary Care Provider [phone] Encounter Details Date Type Department Care Team (Latest Contact Info) Description 09/20/2023 Travel Social History Tobacco Use Types Packs/Day Years Used Date Smoking Tobacco: Former Cigarettes 4 30 1 963 1992 Smokeless Tobacco: Never Alcohol Use Standard Drinks/Week Comments Yes 7 (1 standard drink = 0.6 oz pur e alcohol) [facility] Utilities Answer Date Recorded In the [...] place to sleep or slept in a residential (including now)? No 06/04/2023 IPV Inpatient Questions [...] AM EDT Tech [place] [phone] Giacomo Queen 10/11/2023 11:15 AM EDT Office [place] [phone] [facility] [place] [place] [address] 10/18/2023 9:00 AM EDT Office Visit Hematology/Oncology at [address] [phone] [facility] [place] [address] Yessi Renee APRN [address] [place] [address] DR HEMATOLOGY AND ONCOLOGY [place], [place] [phone] 10/18/2023 9:30 AM EDT Infusion Hematology Oncology at [address] [phone] 10/24/2023 9:30 AM EDT Scheduled View Only Radiation Oncology at [address] [phone] [facility]agne 10/24/2023 10:00 AM EDT Office Visit Radiation Oncology at [address] [phone] Bigg Peters MD [address] [place] [address] DR RADIATION ONCOLOGY [place], [place] [phone] 11/01/2023 9:00 AM EDT Office Visit Hematology/Oncology at [address] [phone] [facility] [place] [address] Yessi Renee APRN [address] [place] [address] DR HEMATOLOGY AND ONCOLOGY [place], [place] [phone] 11/01/2023 9:30 AM EDT Infusion Hematology Oncology at [address] [phone] 12/24/2023 1:00 PM EDT TH Visit (TeleHealth) Radiation Oncology at [address] [phone] [facility] DR [place] [address] documented as of this encounter Visit Diagnoses Not on filedocumented in this encounter Care Teams Movie Extra Relationship Specialty Start Date End Date Tristen Hunter MD [address] [place] [address] [place] [address] PCP - General Family Medicine 07/04/23 documented as of this encounter
--- OUTSIDE RECORDS SUMMARY | 2023-10-06 00:36 | XMS_ITS | Encounter Summary ---
Author Organization [facility] [place] [address] Care Team Providers Care Semiconductor Development Technician Name Role Phone Tristen Hunter MD Primary Care Provider [phone] Reason for Visit * Reason Onset Date Comments Other 09/23/2023 Issue with pump beeping on sat. am Encounter Details Date Type Department Care Team (Late st Contact Info) Description 09/23/2023 Telephone Hematology/Oncology at [address] [phone] Salome Barron RN Other (Issue with pump beeping on sat. am) Social History Tobacco Use Types Packs/Day Years Used Date Smoking Tobacco: Former Cigarettes 4 30 1 963 - 1992 Smokeless Tobacco: Never Alcohol Use Standard Drinks/Week Comments Yes 7 (1 standard drink = 0.6 oz pur e alcohol) [facility] Utilities Answer Date Recorded In the past 12 months has [employer], gas, oil, or water [employer] threatened to shut off services in your [...] place to sleep or slept in a nursing home (including now)? No 06/04/2023 DH IPV Inpatient [...] encounter Miscellaneous Notes * Telephone Encounter - Salome Barron RN - 09/23/2023 8:26 AM EDT Called pt to follow up on voice mail left SaturdaySeptember 20 stating his 5FU pump was beeping. He said he got thru to a [employer] (I believe through infusion pump company), they turned pump on and off twice and pump worked again with out issue. He completed his therapy and was disconnected Saturday at [facility]. documented in this encounter Plan of Treatment Upcoming Encounters Date Type Department Care Team (Late st Contact Info) Description 10/11/2023 10:00 AM EDT Tech [place] [phone] Giacomo Queen 10/11/2023 11:15 AM EDT Office Visit [place] [phone] Basim Barr MD [facility] [place] [address] 10/18/2023 9:00 AM EDT Office Visit Hematology/Oncology at [address] [phone] Cl Hess MD [facility] [place] [address] Yessi Renee [address] HEMATOLOGY AND ONCOLOGY [place], [place] [address] 10/18/2023 9:30 AM EDT Infusion Hematology Oncology at [address] [phone] 10/24/2023 9:30 AM EDT Scheduled View Only Radiation Oncology at [address] [phone] [facility] 10/24/2023 10:00 AM EDT Office Visit Radiation Oncology at [address] [phone] Bigg Peters MD [address] [place] [address] DR RADIATION ONCOLOGY [place], [place] [address] 11/01/2023 9:00 AM EDT Office Visit Hematology/Oncology at [address] [phone] Cl Hess MD [facility] [place] [address] Yessi Renee [address] HEMATOLOGY AND ONCOLOGY [place], [place] [address] 11/01/2023 9:30 AM EDT Infusion Hematology Oncology at [address] [phone] 12/24/2023 1:00 PM EDT TH Visit (TeleHealth) Radiation Oncology at [address] [phone] Ping Moore PA [facility] DR [place] [address] documented as of this encounter Visit Diagnoses Not on filedocumented in this encounter Care Teams Semiconductor Development Technician Relationship Specialty Start Date End Date Tristen Hunter MD [address] [place] [address] [place] [address] PCP - General Family Medicine 07/04/23 documented as of this encounter
--- OUTSIDE RECORDS SUMMARY | 2023-10-06 00:36 | XMS_ITS | Clinical Summary ---
Author Organization [place] [address] Care Team Providers Care Computed Tomography Scanner Operator Name Role Phone Tristen Hunter MD Primary Care Provider [phone] Allergies Active Allergy Reactions Criticality Noted Date Comments Belinostat Other (See Comments) Medium 07/04/2023 UGT1A1 Poor Metabolizer. See Clinical Pharmacist Note from 07/04/23 for dosing recommendations. Cyclobenzaprine Other (See Comments) Medium 07/05/2021 Extreme moodiness Other reaction(s): Other (See Comments) Extreme moodiness Irinotecan Other (See Comments) Medium 07/04/2023 UGT1A1 Poor Metabolizer. See Clinical Pharmacist Note from 07/04/23 for dosing recommendations. Nilotinib Other (See Comments) Medium 07/04/2023 UGT1A1 Poor Metabolizer. See Clinical Pharmacist Note from 07/04/23 for information. Unclassified Drug Other (See Comments) Medium 09/15/2020 Had reaction to a dye used during vascular procedure at [facility] in [place]: shaking Has tolerated MRI and CT contrast. Pazopanib Other (See Comments) Medium 07/04/2023 UGT1A1 Poor Metabolizer. See Clinical Pharmacist Note from 07/04/23 for information. Sacituzumab Govitecan-Hziy Other (See Comments) Medium 07/04/2023 UGT1A1 Poor Metabolizer. See Clinical Pharmacist Note from 07/04/23 for dosing recommendations. Medications Medication Sig Dispensed Refills Start Date End Date Status aspirin EC 81 mg Tablet, Delayed Release (E.C.) Take 81 mg by mouth daily. Active atorvastatin (Lipitor) 80 mg Tablet Take 1 tablet by mouth every evening. 90 tablet 3 07/17/2021 Active folic acid (Folvite) 1 mg Tablet Take 1 tablet by mouth daily. 90 tablet 3 07/21/2021 Active isosorbide mononitrate CR (Imdur) 30 mg Tablet Sustained Release 24 hr Take 1 tablet by mouth nightly. 30 tablet 12 07/21/2021 Active timoloL (Timoptic) 0.5 % Drops 08/29/2021 Active erythromycin (Romycin) 5 mg/gram (0.5 %) Ointment Place 1 Tube into the left eye once a week. 08/29/2021 Active amLODIPine (Norvasc) 10 mg Tablet Take 0.5 tablets by mouth daily. Amlodipine (Hold if SBP<120) 11/18/2021 Active Additional Information Patient taking differently: 10 mgOral DAILY, Amlodipine (Hold if SBP<120), Reported on 09/03/2023 carvediloL (Coreg) 25 mg Tablet Take 1 tablet by mouth 2 times daily (with meals). Carvedilol (hold for SBP <110, Hr <60) 11/18/2021 Active Additional Information Patient taking differently:25 mg OralNIGHTLY, Carvedilol (hold for SBP <110, Hr <60), Reported on 07/26/2023 lisinopriL (Zestril) 40 mg Tablet Take 1 tablet by mouth daily. Lisinopril (hold for SBP <130) 11/18/2021 Active omega 3-vur-xwi-fish oil 250-350-1,000 mg Capsule Take 1,000 mg by mouth. 07/18/2021 Active omeprazole (PriLOSEC) [address] capsule Take 20 mg by mouth daily. 05/20/2023 Active Insulin Tresiba FlexTouch U-100 100 unit/mL (3 mL) Insulin Pen ADMINISTER 10 UNITS UNDER THE SKIN TWICE DAILY 06/22/2023 Active loperamide (IMODIUM A-D) 2 mg Tablet Take by mouth 4 times daily as needed for Diarrhea. Maximum 16 mg in 24 hours Active chlorthalidone (Hygroton) 25 mg tablet Take 25 mg by mouth daily. Active Insulin Fiasp FlexTouch U-100 100 unit/mL (3 mL) Insulin Pen Inject 3 mLs subcutaneously 3 times daily (before meals). 07/01/2023 Active ondansetron (Zofran) 8 mg tabletIndications: Malignant neoplasm of head of pancreas,Drug-carole jamshid nausea and vomiting Take 1 tablet by mouth every 8 hours as needed for Nausea. Do not use for 72 hours after chemotherapy 20 tablet 07/12/2023 Active prochlorperazine (Compazine) 10 mg tabletIndications: Malignant neoplasm of head of pancreas,Drug-carole jamshid nausea and vomiting Take 1 tablet by mouth every 6 hours as needed for Nausea. 20 tablet 07/12/2023 Active Additional Information Patient not taking.Reported on 07/26/2023 xunjoh-snuxndhg-ym ylase (Creon 24) 24,000-76,000 -120,[address] capsuleIndications :Malignant neoplasm of head of pancreas,Pancreati c insufficiency Take 2-3 PO with meals and 1 PO with snacks (3 snacks per day), 10 per day 300 capsule 07/24/2023 Active tamsulosin (Flomax) 0.4 mg capsuleIndications :Malignant neoplasm of prostate Take 1 capsule by mouth nightly. 30 capsule 11 08/20/2023 Active Active Problems Problem Noted Date Diagnosed Date [...] 10/10/2020 s/p L JIMI, posterior, Dr. Wu, 10/10/2011/2020 ASCVD (arteriosclerotic cardiovascular disease) 10/06/2020 History of carotid endarterectomy 08/18/2020 Colorectal cancer 07/22/2019 Diabetes mellitus 07/22/2019 Hypercholesterolemia 07/22/2019 Hypertension -Labile blood pressurses 07/22/2019 Encounters Date Type Department Care Team Description 10/04/2023 10:00 AM EDT Clinical Support Hematology/Oncolo gy at [address] [phone] Arrived 10/04/2023 9:30 AM EDT Infusion Hematology Oncology at [address] [phone] Malignant neoplasm of prostate 10/04/2023 9:00 AM EDT Office Visit Hematology/Oncolo gy at [address] [phone] Cl Hess MD LaRoza, Stephanie A, APRN Malignant neoplasm of head of pancreas 10/04/2023 Travel 10/01/2023 Orders Only Hematology [place] [address] Cl Hess MD 09/24/2023 Telephone [place] [address] Laina Cope 09/23/2023 Telephone Hematology/Oncolo gy at [address] [phone] Salome Barron RN Other (Issue with pump beeping on sat. am) 09/20/2023 10:00 AM EDT Clinical Support Hematology/Oncolo gy at [address] [phone] Malignant neoplasm of head of pancreas 09/20/2023 9:30 AM EDT Infusion Hematology Oncology at [address] [phone] Malignant neoplasm of prostate 09/20/2023 9:00 AM EDT Office Visit Hematology/Oncolo gy at [address] [phone] Cl Hess MD LaRoza, Stephanie A, ARNOLD Malignant neoplasm of head of pancreas 09/20/2023 Travel 09/13/2023 Specialty [place] [phone] Casandra Walton, [facility] Started Refill Coordination - Manual (lipase/protease/nargis lase) for Enzyme 09/06/2023 10:00 AM EDT Infusion Hematology Oncology at [address] [phone] Malignant neoplasm of prostate 09/06/2023 9:30 AM EDT Office Visit Hematology/Oncolo gy at [address] [phone] Cl Hess MD LaRoza, Stephanie A, ARNOLD Malignant neoplasm of head of pancreas 09/06/2023 Travel 09/03/2023 1:45 PM EDT TH Visit (TeleHealth) Radiation Oncology at [address] [phone] Ping Moore PA Malignant neoplasm of prostate (Primary Dx); S/P radiotherapy 09/02/2023 3:45 PM EDT Ancillary Procedure [place] [address] Unknown 09/02/2023 10:40 AM EDT Ancillary Procedure [place] [address] Unknown 09/02/2023 Interpretation [place] [address] Unknown 09/02/2023 Interpretation [place] [address] Unknown 08/23/2023 10:00 AM EDT Office Visit Hematology/Oncolo gy at [address] [phone] Malignant neoplasm of prostate 08/23/2023 9:00 AM EDT Infusion Hematology Oncology at [address] [phone] Malignant neoplasm of prostate 08/23/2023 8:30 AM EDT Office Visit Hematology/Oncolo gy at [address] [phone] Cl Hess MD LaRoza, Stephanie A, APRN Malignant neoplasm of head of pancreas; Malignant neoplasm of prostate 08/23/2023 Travel 08/20/2023 Orders Only Radiation Oncology at [address] [phone] Ping Moore PA Malignant neoplasm of prostate 08/09/2023 9:00 AM EDT Infusion Hematology Oncology at [address] [phone] Malignant neoplasm of prostate; Malignant neoplasm of head of pancreas 08/09/2023 8:30 AM EDT Office Visit Hematology/Oncolo gy at [address] [phone] Cl Hess MD LaRoza, Stephanie A, APRN Malignant neoplasm of head of pancreas 08/09/2023 Travel 08/06/2023 Specialty [place] [phone] Betty Tovar Cyndi Started Refill Coordination - Manual (lipase/protease/nargis lase) for Enzyme 07/26/2023 9:00 AM EDT Clinical Support Hematology/Oncolo gy at [address] [phone] Malignant neoplasm of prostate 07/26/2023 8:30 AM EDT Infusion Hematology Oncology at [address] [phone] Malignant neoplasm of prostate 07/26/2023 8:00 AM EDT Office Visit Hematology/Oncolo gy at [address] [phone] Cl Hess MD LaRoza, Stephanie A, APRN Malignant neoplasm of head of pancreas 07/26/2023 Telephone Hematology and Oncology at [address] [phone] Queenie Meneses, [facility] Results 07/26/2023 Travel 07/25/2023 Orders Only Hematology [place] [phone] Cl Hess MD 07/24/2023 Specialty [place] [phone] Slim De La Cruz [facility] One Time Clinical Outreach - Manual (lipase/protease/nargis lase) for Enzyme 07/24/2023 Orders Only Hematology [place] [phone] Cl Hess MD Malignant neoplasm of head of pancreas; Pancreatic insufficiency 07/18/2023 Specialty [place] [phone] Slim De La Cruz [facility] 07/18/2023 Orders Only Hematology [place] [phone] Cl Hess MD Malignant neoplasm of head of pancreas; Pancreatic insufficiency 07/12/2023 10:30 AM EDT Infusion Hematology Oncology at [address] [phone] Malignant neoplasm of prostate 07/12/2023 10:00 AM EDT Office Visit Hematology/Oncolo gy at [address] [phone] Cl Hess MD LaRoza, Stephanie A, APRN Malignant neoplasm of head of pancreas; Drug-induced nausea and vomiting 07/12/2023 Travel 07/11/2023 Orders Only H[facility]ology and [facility] at [facility] [place] [address] Cl Hess MD from Last 3 Months Immunizations Name Administration Dates Next Due Influenza (Fluzone HD) Trivalent High Dose 11/21 Moderna Covid-19 Monovalent 12Yr+ (Polisher Implant 100mcg) 01/01/2021,06/21/2020,05/20/2020 TD Adult 12/02/2018 Family History Medical History Relation Comments Stomach Cancer Brother 1 Melanoma Brother 2 Diabetes Father Lung Cancer Maternal Aunt heavy smoker Lung Cancer Maternal Grandfather Uterine Cancer Maternal Grandmother Liver Cancer Mother Brain Cancer Sister Relation Status Comments Brother 1 Alive Brother 2 Father Maternal Aunt Maternal Grandfather Maternal Grandmother Mother Sister Social History Tobacco Use Types Packs/Day Years Used Date Smoking Tobacco: Former Cigarettes 4 30 1 963 - 1992 Smokeless Tobacco: Never Alcohol Use Standard Drinks/Week Comments Yes 7 (1 standard drink = 0.6 oz pur e alcohol) [facility] Utilities Answer Date Recorded In the past 12 months has e electric, gas, oil, or water [employer] threatened to shut off services in your [...] place to sleep or slept in a penitentiary (including now)? No 06/04/2023 IPV Inpatient Questions [...] on file Sexual Orientation Not on file Last Filed Vital Signs Vital Sign Reading [...] Mass Index 28.19 10/04/2023 9:03 AM EDT Plan of Treatment Upcoming Encounters Date Type Department Care Team (Late st Contact Info) Description 10/11/2023 10:00 AM EDT Tech [place] [phone] Giacomo Queen 10/11/2023 11:15 AM EDT Office Visit [place] [address] Basim Barr MD [facility] DR [place] [address] 10/18/2023 9:00 AM EDT Office Visit Hematology/Oncology at [address] [phone] Cl Hess MD [facility] [place] [place] [address] [address] Renee [address] HEMATOLOGY AND ONCOLOGY [place], [place] [address] [phone] 10/18/2023 9:30 AM EDT Infusion Hematology Oncology at [address] [phone] 10/24/2023 9:30 AM EDT Scheduled View Only Radiation Oncology at [address] [phone] Rad , [facility] Deutsch 10/24/2023 10:00 AM EDT Office Visit Radiation Oncology at [address] [phone] Bigg Peters MD [address] [place] [address] DR RADIATION ONCOLOGY [place], [place] [address] [phone] 11/01/2023 9:00 AM EDT Office Visit Hematology/Oncology at [address] [phone] Cl Hess MD [facility] [place] [address] Yessi Renee [address] HEMATOLOGY AND ONCOLOGY [place], [place] [phone] 11/01/2023 9:30 AM EDT Infusion Hematology Oncology at [address] [phone] 12/24/2023 1:00 PM EDT TH Visit (TeleHealth) Radiation Oncology at [address] [phone] Ping Moore PA [facility] HEMATOLOGY [place] [address] Health Maintenance Due Date Last Done Comments CT Colonography 1948 Colonoscopy 1948 Colorectal Cancer Screening 1948 FIT DNA 1948 FIT 1948 Sigmoidoscopy (10 year) with FIT yearly 1948 Sigmoidoscopy 1948 Pneumoccocal Vaccine: 65+ (1 of 2 - PCV) 01/25/1954 DM Opthalmology Exam 01/25/1958 DM Urine Microalbumin yearly 01/25/1958 Hepatitis C Screening 01/25/1966 Tdap adult 01/25/1967 Zoster vaccine (1 of 2) 01/25/1998 Advance Directive 01/25/2003 AAA Screen 01/25/2013 DM Hemoglobin A1c 6 month 01/18/2022 07/18/2021 Covid-19 Vaccine (4 - 2022-2 4 season) 2022 01/01/2021, 06/21/2020, 05/20/2020 Influenza (Flu) vaccine (1 o f 1 - Influenza standard series) 11/03/2023 11/21/2020 DM Creatinine yearly 06/24/2024 06/25/2023, 11/18/2021, 07/21/2021, Additional history exists Tetanus vaccine 12/02/2028 12/02/2018 Lipid Screening Discontinued 07/18/2021 Medical Devices Implanted Type Area Shellfish Weigher Device Identifier Shelf Expiration Date Model / Serial / Lot Shell Acet Hip 60mm Por Ctd Multi Hole Ti Treece Gription ([id number]) (Autoreq) - [id number] Implanted:Qty : 1 on 10/10/2020 by Ismael Wu MD at [facility] Left: Hip [facility] [employer] [id number] 07/01/2030 1217-32- 060 / / [id number] Liner Acet Hip 12u80eo Stnd Poly Treece Altrx (9786455) (Autoreq) - [id number] Implanted:Qty : 1 on 10/10/2020 by Ismael Wu MD at [facility] Left: Hip [employer] [facility] [facility] [id number] 08/31/2025 1221-36- 060 / / [id number] Head Femoral Hip 36mm +1.5mm Offset 01/14 Taper Ceramic ([id number]) (Autoreq) - [id number] Implanted:Qty : 1 on 10/10/2020 by Ismael Wu MD at [facility] Left: Hip [employer] [facility] [facility] - [employer] 07/01/2025 1365-36- 310 / / [id number] Stem Femoral Hip Sz 7 Prox 02/14 Taper Por Cllr High Ofst Ti (4838345) (Autoreq) - [id number] Implanted:Qty : 1 on 10/10/2020 by Ismael Wu MD at [facility] Left: Hip [employer] - [employer]IAN 08/31/2030 1010-12- 070 / / [id number] System Stent Enroute [id number] Rx Nit (2386899) ([employer]oreq) - [id number] Implanted:Qty : 1 on 07/14/2021 by Basim Barr MD at [facility] Right: [facility] [id number] 08/02/2023 SR-1040- / / [id number] Stem Femoral Hip Sz 7 Prox 02/14 Taper Por Cllr High Ofst Ti (7241755) (Autoreq) - [id number] Implanted:Qty : 1 on 11/17/2021 by Ismael Wu MD at [facility] Right: Hip [employer] - [employer] [id number] 09/01/2031 1010-12- 070 / / [id number] Head Femoral Hip 36mm +8.5mm Offset 02/14 Tpr Ceramic (1851517) (Autoreq) - [id number] Implanted:Qty : 1 on 11/17/2021 by Ismael Wu MD at [facility] Right: Hip [employer] - [employer] [id number] 07/01/2026 1365-36- 330 / / [id number] Shell Acet Hip 60mm Por Ctd Multi Hole Ti Treece Gription (0679915) (Autoreq) - [id number] Implanted:Qty : 1 on 11/17/2021 by Ismael Wu MD at [facility] Right: Hip [facility] [employer] [facility] [employer] [id number] 10/01/2030 1217-32- 060 / / [id number] Liner Acet Hip 58n89cp Stnd Poly Treece Altrx (8144528) (Autoreq) - [id number] Implanted:Qty : 1 on 11/17/2021 by Ismael Wu MD at [facility] Right: Hip [facility] [employer] [facility] [employer] [id number] 11/01/2026 1221-36- 060 / / [id number] Screw Hip Acet 6.5x25mm Ft Canc Hex Drv Ti Treece (6625758) (Autoreq) - [id number] Implanted:Qty : 1 on 11/17/2021 by Ismael Wu MD at [facility] Right: Hip [facility] [employer] [id number] 10/02/2031 1217-25- 500 / / [id number] Screw Hip Acet 6.5x20mm Ft Canc Hex Drv Ti Treece (3005723) (Autoreq) - [id number] Implanted:Qty : 1 on 11/17/2021 by Ismael Wu MD at [facility] Right: Hip [facility] [employer] [id number] 06/02/2031 1217-20- 500 / / [id number] Port Infusion 8fr Cath Power Lp Ct Plastic Dignity (1965055) - [id number] Implanted:Qty : 1 on 07/05/2023 by Charu Balbuena MD at [facility] Right: Chest Wall [employer] [place] [id number] 11/02/2027 [id number] / / [id number] Procedures Procedure Name Priority Date/Time Associated Diagnosis Comments LAB SCAN 10/03/2023 12:00 AM EDT LAB SCAN 10/03/2023 12:00 AM EDT LAB SCAN 09/21/2023 12:00 AM EDT LAB SCAN 09/19/2023 12:00 AM EDT LAB SCAN 09/19/2023 12:00 AM EDT LAB SCAN 09/06/2023 12:[address] SCAN (SCAN) 09/06/2023 12:[address] SCAN (SCAN) 09/05/2023 12:[address] SCAN (SCAN) 09/04/2023 12:00 AM EDT FILM LIBRARY STORAGE ONLY CT ABDOMEN AND PELVIS Routine 09/02/2023 3:45 PM EDT FILM LIBRARY STORAGE ONLY MR PELVIS Routine 09/02/2023 10:40 AM EDT LAB SCAN 09/02/2023 12:00 AM EDT LAB SCAN 08/31/2023 12:00 AM EDT LAB SCAN 08/30/2023 12:00 AM EDT LAB SCAN 08/30/2023 12:00 AM EDT LAB SCAN 08/22/2023 12:00 AM EDT LAB SCAN 08/22/2023 12:00 AM EDT LAB SCAN 08/12/2023 12:00 AM EDT LAB SCAN 08/09/2023 12:00 AM EDT LAB SCAN 08/08/2023 12:00 AM EDT LAB SCAN 08/08/2023 12:00 AM EDT POCT GLUCOSE Routine 07/26/2023 9:38 AM EDT POCT GLUCOSE Routine 07/26/2023 8:18 AM EDT LAB SCAN 07/23/2023 12:00 AM EDT LAB SCAN 07/09/2023 12:00 AM EDT LAB SCAN 07/09/2023 12:00 AM EDT COMPREHENSIVE METABOLIC PANEL Routine 06/25/2023 2:37 PM EDT Malignant neoplasm of head of pancreas LIPID PANEL (REFLEX DIRECT LDL) Routine 07/18/2021 8:33 PM EDT HC HEMOGLOBIN A1C Routine 07/18/2021 8:3 3 PM EDT from Last 3 Months or Most Recently Relevant to Health Maintenance Results * Scan Doc: Lab (10/03/2023 12:00 AM EDT) Only the most recent of19 resultswithin the time period is included. Narrative 10/03/2023 12:00 AM EDT Ordered by an unspecified provider. Scanning Provider MEDIA MGR SCAN EXT O RDR/RSLT * Scan Doc: CT Scan (09/06/2023 12:00 AM EDT) Only the most recent of3 resultswithin the time period is included. Anatomical Region Laterality Modality Other Narrative 09/06/2023 12:00 AM EDT Ordered by an unspecified provider. Scanning Provider MEDIA MGR SCAN EXT O RDR/RSLT * Film Library- Storage Only CT Abdomen & Pelvis (09/02/2023 3:45 PM EDT) 09/03/2023 8:26 AM EDT Narrative [facility] - 09/03/2023 8:26 AM EDT This exam is auto-finalizing. It's purpose is for storage only. Unknown IMG FILM LIBRARY ORD ERABLES Performing Organization Address [facility] de Phone Number [place], [place] * Film Library- Storage Only MR Pelvis (09/02/2023 10:40 AM EDT) 09/03/2023 8:26 AM EDT Narrative [facility] 09/03/2023 8:26 AM EDT This exam is auto-finalizing. It's purpose is for storage only. Unknown IMG FILM LIBRARY ORD ERABLES Performing Organization Address [facility] de Phone Number [place], [place] * (ABNORMAL) POCT Glucose (07/26/2023 9:38 AM EDT) Only the most recent of2 resultswithin the time period is included. Glucose, POC 341(H) 65 - 199 mg/dL [facility] Comment: Supplemental ranges: <140 mg/dL before meals <180 mg/dL all other times of the day Blood 07/26/2023 9:38 AM EDT 07/26/2023 9:[address] Haresh Tyson MD POINT OF CARE TEST O RDERABLES Performing Organization Address [facility] de Phone Number [facility] [place] [address] * (ABNORMAL) Comprehensive metabolic panel (non-fasting) (06/25/2023 2:37 PM EDT) Glucose 410(H) 65 - 199 mg/dL [facility] Comment:Diabetes: >=200 mg/d L plus symptoms Blood Urea Nitrogen 19 10 - 20 mg/dL [facility] Creatinine 0.66(L) 0.80 - 1.50 mg/dL [facility] Sodium 135 135 - 145 mmol/L [facility] Potassium 4.0 3.5 - 5.0 mmol/L [facility] Comment: Please note: ??Patients with WBC >100,000 may have falsely elevated Potassium levels. ??For accurate Potassium quantification in these patients send serum separator tube (gold top) for subsequent determinations. ??Contact the Clinical Chemistry Laboratory if there are any questions. Chloride 96(L) 98 - 107 mmol/L [facility] Carbon Dioxide 25 22 - 31 mmol/L [facility] Anion Gap 14 5 - 15 mmol/L [facility] Calcium 9.3 8.5 - 10.5 mg/dL [facility] Protein, Total 6.4 6.1 - 8.0 g/dL [facility] Albumin 4.0 3.2 - 5.2 g/dL [facility] Aspartate Aminotransferase 122(H) 0 - 39 unit/L [facility] Alanine Aminotransferase 200(H) 0 - 55 unit/L [facility] Alkaline Phosphatase 303(H) 40 - 130 unit/L [facility] Bilirubin, Total 2.0(H) 0.2 - 1.3 mg/dL [facility] Est Glomerular Filtration Rate 98 >=60 mL/min/1. 73 m?? [facility] Comment: This patient's estimated GFR was calculated using the 2020 CKD-EPI equation. The estimated GFR can vary from the measured GFR by up to 30% in the absence of rapidly changing kidney function. Assessment of the estimated GFR is not appropriate when creatinine concentrations are rapidly changing. For clinical situations in which a more precise estimate of GFR is necessary, consider alternative methods of GFR estimation such as a 24-hour urine creatinine clearance. Assignment of CKD stage 1-5 for patients with an eGFR near the transition point between stages may be based on clinical assessment of muscle mass and symptoms in addition to eGFR. Blood 06/25/2023 2:37 PM EDT 06/25/2023 2:43 PM EDT Narrative Resulting Agency Comment Spec In Lab Cl Hess MD CHEMISTRY ORDERABLES [facility] [place] [address] * (ABNORMAL) Hemoglobin A1c (07/18/2021 8:33 PM EDT) Hemoglobin A1c 7.8(H) 4.3 - 5.6 % [facility] Comment: Reference Range: 4.3 - 5.6% 5.7 - 6.4% - Increased Risk of Developing Diabetes Mellitus >= 6.5% - Consistent with diagnosis of Diabetes Mellitus In the absence of hyperglycemia (i.e. plasma glucose > 200 mg/dL) or classic symptoms of hyperglycemia a repeat measurement of HbA1c should be performed on a separate sample to confirm the diagnosis. Diagnosis and Classification of Diabetes Mellitus, Diabetes Care 2013; 36: Suppl. 1, S67-74 Estimated Average Glucose See note mg/dL [facility] Comment: Estimated Average Glucose not appropriate for patients over 70 years of age. eAG equivalents for HbA1c percentages: HbA1c(%) ?eAG(mg/dL) 6.0 ?126 6.5 ?140 7.0 ?154 7.5 ?169 8.0 ?183 8.5 ?197 9.0 ?212 9.5 ?226 10.0 ? 240 Limitations: The eAG calculation has not been validated on women, individuals below 18 years old and above 70 years old, and individuals with hemoglobinopathies. Additional resources are available on the ADA website. César SAMPSON, Steven J, oSto R, et al. ??Translating the A1C assay into estimated average glucose values. ??Diabetes Care 2008:31(8):0158-0648. Blood 07/18/2021 8:33 PM EDT 07/18/2021 8:48 PM EDT Narrative Resulting Agency Comment Spec In Lab Salome Rodriguez ARNOLD CHEMISTRY ORDERABLES [facility] [place] [address] * Lipid Panel (Reflex Direct LDL) (07/18/2021 8:33 PM EDT) Cholesterol, Total 151 mg/dL [facility] Comment: Lower Risk: <200 mg/dL Average Risk: 200-239 mg/dL Higher Risk: >he=114 mg/dL Triglyceride 162 mg/dL [facility] Comment: Average Risk/Lower Risk: <150 mg/dL Borderline High Risk: 150-199 mg/dL High Risk: 200-499 mg/dL Very High Risk: >re=250 mg/dL HDL Cholesterol 38 mg/dL [facility] Comment: Males: ?? Higher Risk: <40 mg/dL Females: ?? Higher Risk: <50 mg/dL LDL Cholesterol 81 mg/dL [facility] Comment: Lowest Risk: <100 mg/dL Lower Risk: 100-129 mg/dL Borderline High Risk: 130-159 mg/dL High Risk: 160-189 mg/dL Very High Risk: >vt=577 mg/dL Cholesterol/HDL Ratio 4.0 ratio [facility] Lipid Interpretation See Note [facility] Comment: Lipid management should be guided by a patient? s ASCVD risk, goals and preferences. ACC/AHA Guidelines recommend high intensity statin if clinical ASCVD or LDL greater than or equal to 190 mg/dL. http://tinyurl.com/ZFV-AXR-Ogxudaawi Adults aged 40-75 with LDL 70-189 mg/dL should have their 10 year ASCVD risk estimated with the ACC/AHA ASCVD risk credit correspondence clerk http://tools.acc.org/OUITR-Thpm-Qihyjshhk/ Statin should be discussed if risk greater than or equal to 7.5% in non-diabetics. With diabetes, moderate intensity statin is recommended if risk less than 7.5%, high intensity if risk greater than or equal to 7.5%. Annual lipid monitoring on statins is not necessary. Evaluate secondary causes of Triglycerides greater than 500 mg/dL or LDL greater than 190 mg/dL: See table 6 of ACC/AHA Guideline. Lifestyle modification is a critical component of ASCVD risk reduction. Blood 07/18/2021 8:33 PM EDT 07/18/2021 8:48 PM EDT Narrative Resulting Agency Comment Spec In Lab Salome Rodriguez [place] [address] from Last 3 Months or Most Recently Relevant to Health Maintenance Advance Directives Documents on File Type Date Recorded Patient Ground Operations Supervisor Colleen nielsen Personal Ground Operations Supervisor 07/04/2023 9:10 AM susan meyer Personal Ground Operations Supervisor 10/07/2020 7:46 AM ЕКАТЕРИНА SADLER Personal Ground Operations Supervisor 10/07/2020 7:45 AM HUNG FAJARDO Personal Ground Operations Supervisor 05/04/2021 1:43 PM brother Personal Ground Operations Supervisor 05/04/2021 1:43 PM brother * Attempt Cardiopulmonary Resuscitation - Inpatient (Latest Code Status on File) Date Activated Date Inactivated Comments 11/17/2021 11:55 AM 11/18/2021 6:26 PM Question Answer Comments Code Status decision made by: Patient * Attempt Cardiopulmonary Resuscitation - Inpatient Date Activated Date Inactivated Comments 07/18/2021 3:32 PM 07/21/2021 4:47 PM Question Answer Comments Code Status decision made by: Patient * Attempt Cardiopulmonary Resuscitation - Inpatient Date Activated Date Inactivated Comments 07/14/2021 11:15 AM 07/17/2021 6:38 PM Question Answer Comments Code Status decision made by: Patient * Attempt Cardiopulmonary Resuscitation - Inpatient Date Activated Date Inactivated Comments 07/14/2021 7:53 AM 07/14/2021 11:15 AM Question Answer Comments Code Status decision made by: Patient * Attempt Cardiopulmonary Resuscitation - Inpatient Date Activated Date Inactivated Comments 02/02/2021 10:13 AM 02/03/2021 2:12 PM Question Answer Comments Code Status decision made by: Patient Care Teams Computed Tomography Scanner Operator Relationship Specialty Start Date End Date Tristen Hunter MD [address] [place] [address] [place] [address] PCP - General Family Medicine 07/04/23
--- OUTSIDE RECORDS SUMMARY | 2023-10-06 00:37 | XMS_ITS | Encounter Summary ---
Author Organization [facility] Address [facility] [place] [address] Care Team Providers Care Protective Signal Operations Supervisor Name Role Phone Tristen Hunter MD Primary Care Provider [phone] Reason for Visit * Reason Comments Chemotherapy * Treatment/Therapy Plan Authorization (Routine) - Authorized Specialty Diagnoses / Procedures Referred By Marques livingston Referred To Contact Diagnoses Malignant neoplasm of prostate Cl Hess MD [facility] [place] [address] Stj Hem Onc Infusion [address] [place] [phone] Referral ID Status Reason Start Date Expiration Date V isits Requested Visits Authorized [id number] Authorized 07/11/2023 07/10/2024 99 99 Encounter Details Date Type Department Care Team (Late st Contact Info) Description 07/26/2023 8:30 AM EDT Infusion Hematology Oncology at [address] [phone] Malignant neoplasm of prostate Social History Tobacco Use Types Packs/Day Years Used Date Smoking Tobacco: Former Cigarettes 1992 Smokeless Tobacco: Never Alcohol Use Standard Drinks/Week Comments Yes 7 (1 standard drink = 0.6 oz pur e alcohol) [facility] Utilities Answer Date Recorded In the past 12 months has [employer], gas, oil, or water company threatened [...] in a intermediate (including now)? No 06/04/2023 DH IPV Inpatient [...] as of this encounter Progress Notes * Tammy Hooks RN - 07/26/2023 8:30 AM EDT INFUSION THERAPY ADMINISTRATION NOTES DIAGNOSIS: Pacreatic CYCLE #: C2D1 REASON FOR VISIT: mFOLFIRINOX infusion and initiation of continuous home 5FU infusion via CADD pumpprovided by [employer] JORDYN Conteh met with Dr. Hess prior to infusion. Wero is having issues with his CGM functions. POC blood glucose 343 today, discussed with Dr. Hess patient to receive 1L NS prior to treatment.Recheck POC blood glucose post hydration was 341, We do not have insulin available here in clinic, patient did not bring any with him. Wero has an appointment with his PCP this afternoon to discusshis CGM and glucose management. OBJECTIVE LAB DATA: Labs reviewed and found adequate for treatment. Pre administration: Chemotherapy orders independently verified for drug name, route, and dosage per patient's height, weight and BSA by Tammy Hooks, AYE and staff pharmacists. At time of administration Patient identity verified using patient's name and date of at the chair/bedside by double RN check just prior to initiating the patient's home infusion chemotherapy via CADD pump provided by [employer]. Amount infused verified by double RN check after 15 minutes and appropriate amount had infused. REACTIONS (DESCRIPTION, TIME, INTERVENTION AND EFFECTIVENESS) none ASSESSMENT Wero declined dexamethasone pre medication. Wero was awake, alert and tolerated treatment well. PLAN Pump disconnect at [facility]. documented in this encounter Plan of Treatment Upcoming Encounters Date Type Department Care Team (Late st Contact Info) Description 10/11/2023 10:00 AM EDT Tech [place] [address] Giacomo Queen 10/11/2023 11:15 AM EDT Office [place] [address] Basim Barr MD [facility] [place] [address] 10/18/2023 9:00 AM EDT Office Visit Hematology/Oncology at [address] [phone] Cl Hess MD [facility] [place] [address] Yessi Renee APRN [address] [place] [address] DR HEMATOLOGY AND ONCOLOGY [place], [place] [address] 10/18/2023 9:30 AM EDT Infusion Hematology Oncology at [address] [phone] 10/24/2023 9:30 AM EDT Scheduled View Only Radiation Oncology at [address] [phone] Rad Nurse[address] Deutsch 10/24/2023 10:00 AM EDT Office Visit Radiation Oncology at [address] [phone] Bigg Peters MD [address] [place] [address] DR RADIATION ONCOLOGY [place], [place] [id number] 11/01/2023 9:00 AM EDT Office Visit Hematology/Oncology at [address] [phone] Cl Hess MD [facility] [place] [address] [address] HEMATOLOGY AND ONCOLOGY [place], [place] [address] 11/01/2023 9:30 AM EDT Infusion Hematology Oncology at [address] [phone] 12/24/2023 1:00 PM EDT TH Visit (TeleHealth) Radiation Oncology at [address] [phone] Ping Moore PA [facility] [place] [address] documented as of this encounter Procedures Procedure Name Priority Date/Time Associated Diagnosis Comments POCT GLUCOSE Routine 07/26/2023 9:38 AM EDT POCT GLUCOSE Routine 07/26/2023 8:18 AM EDT documented in this encounter Results * (ABNORMAL) POCT Glucose (07/26/2023 9:38 AM EDT) Glucose, POC 341(H) 65 - 199 mg/dL [facility] Comment: Supplemental ranges: <140 mg/dL before meals <180 mg/dL all other times of the day Blood 07/26/2023 9:38 AM EDT 07/26/2023 9:[address] Haresh Tyson MD POINT OF CARE TEST O DANIEL Performing Organization Address [facility] Co de Phone Number [facility] [place] [address] * (ABNORMAL) POCT Glucose (07/26/2023 8:18 AM EDT) Glucose, POC 343(H) 65 - 199 mg/dL [facility] Comment: Supplemental ranges: <140 mg/dL before meals <180 mg/dL all other times of the day Blood 07/26/2023 8:18 AM EDT 07/26/2023 8:[address] Haresh Tyson MD POINT OF CARE TEST Brady SANCHEZ Performing Organization Address [facility] Co de Phone Number [facility] [place] [address] documented in this encounter Visit Diagnoses Diagnosis Malignant neoplasm of prostate documented in this encounter Administered Medications Inactive Administered Medications - up to 3 most recent administrations Medication Order MAR Action Action Date Dose Rate Site aprepitant (CINVANTI) injection Emulsion 130 mg 130 mg, Intravenous, Administer over 2 Minutes, ONCE, 1 dose, On Sat07/26/23 at 1030, Alternative administration of IV push over 2 minutes is a recommendation from the aircraft quality control inspector. Administer prior to chemotherapy., Routine Given 07/26/2023 9:45 AM EDT 130 mg atropine (0.1 mg/mL) injection 0.5 mg 0.5 mg, Intravenous, Administer over 1 Minutes, ONCE, 1 dose, On Sat07/26/23 at 1030, Administer prior to IRINOtecan, Routine Given 07/26/2023 12:09 PM EDT 0.5 mg fluorouraciL (AdruciL) in sodium chloride 0.9% 138 mL infusion (46 Hour - For Home Use) 4,800 mg 4,800 mg (2,400 mg/m2/dose ? 2 m2 Treatment Plan BSA from Recorded weight), Intravenous, ONCE, 1 dose, On Sat07/26/23 at 1500, Administer over 46 Hours, Warning Vesicant/Irritant Medication To be infused via an ambulatory infusion CADD Colon pump continuously IV at 3 mL/hr for 46 hours. Pump contains a 46 hour supply and provides a daily dose of 1,200 mg/m2/day = 2,400 mg/m2 IV over 46 hours. Given 07/26/2023 2:11 PM EDT 4,800 mg 3 mL/hr IRINOtecan (Camptosar) 200 mg in dextrose 5% 510 mL infusion 200 mg (rounded from 210 mg = 105 mg/m2/dose ? 2 m2 Treatment Plan BSA from Recorded weight), Intravenous, ONCE, 1 dose, On Sat07/26/23 at 1130, Administer over 90 Minutes, Warning Vesicant/Irritant Medication Administer 30 minutes after the start of the leucovorin. New Bag 07/26/2023 12:10 PM EDT 200 mg 340 mL/hr leucovorin (Wellcovorin) 350 mg in dextrose 5% 85 mL infusion 350 mg, Intravenous, ONCE, 1 dose, On Sat07/26/23 at 1130, Administer over 120 Minutes, Administer upon completion of OXALIplatin infusion. Do not administer at a rate faster than 160 milligrams/minute. New Bag 07/26/2023 11:41 AM EDT 350 mg 42.5 mL/hr OXALIplatin (Eloxatin) 136 mg in dextrose 5% 277.2 mL infusion 136 mg (68 mg/m2/dose ? 2 m2 Treatment Plan BSA from Recorded weight), Intravenous, ONCE, 1 dose, On Sat07/26/23 at 1130, Administer over 85 Minutes, Administer first. Compatible with dextrose-containing solution only. Warning Vesicant/Irritant Medication New Bag 07/26/2023 10:04 AM EDT 136 mg 195.7 mL/hr palonosetron (Aloxi) (0.05 mg/mL) injection 0.25 mg 0.25 mg, Intravenous, ONCE, 1 dose, On Sat07/26/23 at 1030, Administer over 30 seconds., Routine Given 07/26/2023 9:43 AM EDT 0.25 mg sodium chloride 0.9% infusion 500 mL/hr, Intravenous, CONTINUOUS, Starting on Sat07/26/23 at 0900, Until Sat07/26/23 at 1059, Pleae give 1L NS over 1-2 hours New Bag 07/26/2023 8:40 AM EDT 999 mL/hr 999 mL/hr documented in this encounter Care Teams Protective Signal Operations Supervisor Relationship Specialty Start Date End Date Tristen Hunter MD [address] [place] [address] [place] [address] PCP - General Family Medicine 07/04/23 documented as of this encounter
--- OUTSIDE RECORDS SUMMARY | 2023-10-06 00:37 | XMS_ITS | Encounter Summary ---
[place] [address] Care Team Providers Care Auto Care Center Manager Name Role Phone Tristen Hunetr MD Primary Care Provider [phone] Encounter Details Date Type Department Care Team (Latest Contact Info) Description 08/06/2023 Specialty [place] [phone] Betty Tovar Cyndi Started Refill Coordination - Manual (lipase/protease/amyl ase) for Enzyme Social History Tobacco Use Types Packs/Day Years Used Date Smoking Tobacco: Former Cigarettes 4 30 1 963 - 1992 Smokeless Tobacco: Never Alcohol Use Standard Drinks/Week Comments Yes 7 (1 standard drink = 0.6 oz pur e alcohol) [facility] Utilities Answer Date Recorded In the past 12 months has e [employer], gas, oil, or water [employer] threatened to shut off services in your [...] place to sleep or slept in a long term (including now)? No 06/04/2023 IPV Inpatient Questions [...] as of this encounter Progress Notes * Betty Tovar RPH - 08/06/2023 4:33 PM EDT Error encounter. Please disregard. documented in this encounter Plan of Treatment Upcoming Encounters Date Type Department Care Team (Late st Contact Info) Description 10/11/2023 10:00 AM EDT Tech [place] [phone] Giacomo Queen 10/11/2023 11:15 AM EDT Office [place] [address] Basim Barr MD [facility] [place] [address] 10/18/2023 9:00 AM EDT Office Visit Hematology/Oncology at [address] [phone] Cl Hess MD [facility] [place] [address] Yessi Renee [address] HEMATOLOGY AND ONCOLOGY [place], [place] [id number] 10/18/2023 9:30 AM EDT Infusion Hematology Oncology at [address] [phone] 10/24/2023 9:30 AM EDT Scheduled View Only Radiation Oncology at [address] [phone] Rad , [facility] Deutsch 10/24/2023 10:00 AM EDT Office Visit Radiation Oncology at [address] [phone] Bigg Peters MD [address] [place] [address] DR RADIATION ONCOLOGY [place], [place] [id number] 11/01/2023 9:00 AM EDT Office Visit Hematology/Oncology at [address] [phone] Cl Hess MD [facility] [place] [address] Yessi Renee, [address] HEMATOLOGY AND ONCOLOGY [place], [place] [address] 11/01/2023 9:30 AM EDT Infusion Hematology Oncology at [address] [phone] 12/24/2023 1:00 PM EDT TH Visit (TeleHealth) Radiation Oncology at [address] [phone] Ping Moore PA [facility] DR HEMATOLOGY [place] [address] documented as of this encounter Visit Diagnoses Not on filedocumented in this encounter Care Teams Auto Care Center Manager Relationship Specialty Start Date End Date Tristen Hunter MD [address] [place] [address] [place] [address] PCP - General Family Medicine 07/04/23 documented as of this encounter
--- OUTSIDE RECORDS SUMMARY | 2023-10-06 00:37 | XMS_ITS | Encounter Summary ---
Author Organization [facility] Address [facility] [place] [address] Care Team Providers Care Plier Worker Name Role Phone Tristen Hunter MD Primary Care Provider [phone] Encounter Details Date Type Department Care Team (Late st Contact Info) Description 07/18/2023 Orders Only H[place]ology [place] [address] Cl Hess MD [facility] [place] [address] Malignant neoplasm of head of pancreas; Pancreatic insufficiency Social History Tobacco Use Types Packs/Day Years Used Date Smoking Tobacco: Former Cigarettes 4 30 1 963 - 1992 Smokeless Tobacco: Never Alcohol Use Standard Drinks/Week Comments Yes 7 (1 standard drink = 0.6 oz pur e alcohol) [facility] Utilities Answer Date Recorded In the past 12 months has [employer], gas, oil, or water [employer] threatened to shut off services in your [...] place to sleep or slept in a half-way (including now)? No 06/04/2023 IPV Inpatient Questions [...] AM EDT Tech [place] [address] Giacomo Queen 10/11/2023 11:15 AM EDT Office [place] [address] Basim Barr MD [facility] [place] [address] 10/18/2023 9:00 AM EDT Office Visit Hematology/Oncology at [address] [phone] Cl Hess MD [facility] [place] [address] [address] HEMATOLOGY AND ONCOLOGY [place], [place] [phone] 10/18/2023 9:30 AM EDT Infusion Hematology Oncology at [address] [phone] 10/24/2023 9:30 AM EDT Scheduled View Only Radiation Oncology at [address] [phone] St [facility]agne 10/24/2023 10:00 AM EDT Office Visit Radiation Oncology at [address] [phone] Bigg Peters MD [address] [place] [address] DR RADIATION ONCOLOGY [place], [place] [id number] 11/01/2023 9:00 AM EDT Office Visit Hematology/Oncology at [address] [phone] Cl Hess MD [facility] [place] [address] [address] HEMATOLOGY AND ONCOLOGY [place], [place] [id number] 11/01/2023 9:30 AM EDT Infusion Hematology Oncology at [address] [phone] 12/24/2023 1:00 PM EDT TH Visit (TeleHealth) Radiation Oncology at [address] [phone] Ping Moore PA [facility] HEMATOLOGY [place] [address] documented as of this encounter Visit Diagnoses Diagnosis Malignant neoplasm of head of pancreas Pancreatic insufficiency Other specified disease of pancreas documented in this encounter Care Teams Plier Worker Relationship Specialty Start Date End Date Tristen Hunter MD [address] [place] [address] [place] [address] PCP - General Family Medicine 07/04/23 documented as of this encounter
--- OUTSIDE RECORDS SUMMARY | 2023-10-06 00:37 | XMS_ITS | Encounter Summary ---
[place] [address] Care Team Providers Care Chief Technical Officer Name Role Phone Tristen Hunter MD Primary Care Provider [phone] Encounter Details Date Type Department Care Team (Late st Contact Info) Description 09/02/2023 Interpretation [place] [phone] Unknown None Social History Tobacco Use Types Packs/Day Years Used Date Smoking Tobacco: Former Cigarettes 4 30 1 963 - 1992 Smokeless Tobacco: Never Alcohol Use Standard Drinks/Week Comments Yes 7 (1 standard drink = 0.6 oz pur e alcohol) [facility] Utilities Answer Date Recorded In the past [...] place to sleep or slept in a skilled nursing (including now)? No 06/04/2023 IPV Inpatient Questions [...] AM EDT Tech [place] [address] Giacomo Queen 10/11/2023 11:15 AM EDT Office [place] [address] Basim Barr MD [facility] [place] [address] 10/18/2023 9:00 AM EDT Office Visit Hematology/Oncology at [address] [phone] Cl Hess MD [facility] [place] [address] Yessi Renee APRN [address] [place] [address] DR [place] [address] 10/18/2023 9:30 AM EDT Infusion Hematology Oncology at [address] [phone] 10/24/2023 9:30 AM EDT Scheduled View Only Radiation Oncology at [address] [phone] Rad Nurse, St Deutsch 10/24/2023 10:00 AM EDT Office Visit Radiation Oncology at [address] [phone] Bigg Peters MD [address] [place] [address] DR RADIATION ONCOLOGY [place], [place] [id number] 11/01/2023 9:00 AM EDT Office Visit Hematology/Oncology at [address] [phone] Cl Hess MD [facility] [place] [address] Yessi Renee, [address] HEMATOLOGY AND ONCOLOGY [place], [place] [address] 11/01/2023 9:30 AM EDT Infusion Hematology Oncology at [address] [phone] 12/24/2023 1:00 PM EDT TH Visit (TeleHealth) Radiation Oncology at [address] [phone] Ping Moore PA [facility] [place] [address] documented as of this encounter Procedures Procedure Name Priority Date/Time Associated Diagnosis Comments FILM LIBRARY STORAGE ONLY MR PELVIS Routine 09/02/2023 10:40 AM EDT documented in this encounter Results * Film Library- Storage Only MR Pelvis (09/02/2023 10:40 AM EDT) 09/03/2023 8:26 AM EDT Narrative VJ FALL - 09/03/2023 8:26 AM EDT This exam is auto-finalizing. It's purpose is for storage only. Unknown IMG FILM LIBRARY ORD ERABLES Performing Organization Address City/State/[facility] Co de Phone Number [place], [place] documented in this encounter Visit Diagnoses Not on filedocumented in this encounter Care Teams Chief Technical Officer Relationship Specialty Start Date End Date Tristen Hunter MD [address] [place] [address] [place] [address] PCP - General Family Medicine 07/04/23 documented as of this encounter
--- OUTSIDE RECORDS SUMMARY | 2023-10-06 00:37 | XMS_ITS | Encounter Summary ---
Author Organization [facility] [place] [address] Care Team Providers Care Management Planner Name Role Phone Tristen Hunter MD Primary Care Provider [phone] Encounter Details Date Type Department Care Team (Late st Contact Info) Description 09/02/2023 10:40 AM EDT Ancillary Procedure [place] [address] Unknown None Social History Tobacco Use Types Packs/Day Years Used Date Smoking Tobacco: Former Cigarettes 4 3 1992 Smokeless Tobacco: Never Alcohol Use Standard Drinks/Week Comments Yes 7 (1 standard drink = 0.6 oz pur e alcohol) [facility] Utilities Answer Date Recorded In the [...] in a detention (including now)? No 06/04/2023 IPV Inpatient Questions [...] AM EDT Tech [place] [address] Giacomo Queen 10/11/2023 11:15 AM EDT Office [place] [address] Basim Barr MD [facility] [place] [address] 10/18/2023 9:00 AM EDT Office Visit Hematology/Oncology at [address] [phone] Cl Hess MD [facility] [place] [address] Yessi Renee APRN [address] HEMATOLOGY AND ONCOLOGY [place], [place] [address] 10/18/2023 9:30 AM EDT Infusion Hematology Oncology at [address] [phone] 10/24/2023 9:30 AM EDT Scheduled View Only Radiation Oncology at [address] [phone] Rad Nurse, [facility] 10/24/2023 10:00 AM EDT Office Visit Radiation Oncology at [address] [phone] Bigg Peters MD [address] [place] [address] DR RADIATION ONCOLOGY [place], [place] [address] 11/01/2023 9:00 AM EDT Office Visit Hematology/Oncology at [address] [phone] Cl Hess MD [facility] [place] [address] Yessi Renee, [address] HEMATOLOGY AND ONCOLOGY [place], [place] [address] 11/01/2023 9:30 AM EDT Infusion Hematology Oncology at [address] [phone] 12/24/2023 1:00 PM EDT TH Visit (TeleHealth) Radiation Oncology at [address] [phone] Ping Moore PA [facility] [place] [address] documented as of this encounter Procedures Procedure Name Priority Date/Time Associated Diagnosis Comments FILM LIBRARY STORAGE ONLY MR PELVIS Routine 09/02/2023 10:40 AM EDT documented in this encounter Results * Film Library- Storage Only MR Pelvis (09/02/2023 10:40 AM EDT) 09/03/2023 8:26 AM EDT Narrative RAD - 09/03/2023 8:26 AM EDT This exam is auto-finalizing. It's purpose is for storage only. Unknown IMG FILM LIBRARY ORD ERABLES Performing Organization Address City/State/[facility] Co de Phone Number [place], [place] documented in this encounter Visit Diagnoses Not on filedocumented in this encounter Care Teams Management Planner Relationship Specialty Start Date End Date Tristen Hunter MD [address] [place] [address] [place] [address] PCP - General Family Medicine 07/04/23 documented as of this encounter
--- OUTSIDE RECORDS SUMMARY | 2023-10-06 00:37 | XMS_ITS | Encounter Summary ---
Author Organization [facility] [place] [address] Care Team Providers Care Legal Librarian Name Role Phone Tristen Hunter MD Primary Care Provider [phone] Encounter Details Date Type Department Care Team (Latest Contact Info) Description 07/26/2023 Travel Social History Tobacco Use Types Packs/Day Years Used Date Smoking Tobacco: Former Cigarettes 4 30 1 963 1992 Smokeless Tobacco: Never Alcohol Use Standard Drinks/Week Comments Yes 7 (1 standard drink = 0.6 oz pur e alcohol) [facility] Utilities Answer Date Recorded In the [...] place to sleep or slept in a mcc (including now)? No 06/04/2023 IPV Inpatient Questions [...] AM EDT Tech [place] [address] Giacomo Queen 10/11/2023 11:15 AM EDT Office Visit [place] [address] Basim Barr MD [facility] [place] [address] 10/18/2023 9:00 AM EDT Office Visit Hematology/Oncology at [address] [phone] Cl Hess MD [facility] [place] [address] Yessi Renee APRN [address] [place] [address] DR HEMATOLOGY AND ONCOLOGY [place], [place] [phone] 10/18/2023 9:30 AM EDT Infusion Hematology Oncology at [address] [phone] 10/24/2023 9:30 AM EDT Scheduled View Only Radiation Oncology at [address] [phone] St La Nena Champagne 10/24/2023 10:00 AM EDT Office Visit Radiation Oncology at [address] [phone] Bigg Peters MD [address] [place] [address] DR RADIATION ONCOLOGY [place], [place] [phone] 11/01/2023 9:00 AM EDT Office Visit Hematology/Oncology at [address] [phone] Cl Hess MD [facility] [place] [address] Yessi Renee APRN [address] [place] [address] DR HEMATOLOGY AND ONCOLOGY [place], [place] [phone] 11/01/2023 9:30 AM EDT Infusion Hematology Oncology at [address] [phone] 12/24/2023 1:00 PM EDT TH Visit (TeleHealth) Radiation Oncology at [address] [phone] Ping Moore PA [facility] DR [place]ATOLOGY [place] [address] documented as of this encounter Visit Diagnoses Not on filedocumented in this encounter Care Teams Legal Librarian Relationship Specialty Start Date End Date Tristen Hunter MD [address] [place] [address] [place] [address] PCP - General Family Medicine 07/04/23 documented as of this encounter
--- OUTSIDE RECORDS SUMMARY | 2023-10-06 00:37 | XMS_ITS | Encounter Summary ---
[place] [address] Care Team Providers Care Lavatory Attendant Name Role Phone Tristen Hunter MD Primary Care Provider [phone] Encounter Details Date Type Department Care Team (Late st Contact Info) Description 09/02/2023 Interpretation [place] [phone] Unknown None Social History Tobacco Use Types Packs/Day Years Used Date Smoking Tobacco: Former Cigarettes 4 30 1 963 - 1992 Smokeless Tobacco: Never Alcohol Use Standard Drinks/Week Comments Yes 7 (1 standard drink = 0.6 oz pur e alcohol) [facility] Utilities Answer Date Recorded In [...] place to sleep or slept in a retirement (including now)? No 06/04/2023 IPV Inpatient Questions [...] AM EDT Tech [place] [address] Giacomo Queen 10/11/2023 11:15 AM EDT Office [place] [address] Basim Barr MD [facility] [place] [address] 10/18/2023 9:00 AM EDT Office Visit Hematology/Oncology at [address] [phone] Cl Hess MD [facility] [place] [address] Yessi Renee APRN [address] [place] [address] DR HEMATOLOGY [place] [address] 10/18/2023 9:30 AM EDT Infusion Hematology Oncology at [address] [phone] 10/24/2023 9:30 AM EDT Scheduled View Only Radiation Oncology at [address] [phone] Rad Nurse, [facility] 10/24/2023 10:00 AM EDT Office Visit Radiation Oncology at [address] [phone] Bigg Peters MD [address] [place] [address] DR RADIATION ONCOLOGY [place] [address] 11/01/2023 9:00 AM EDT Office Visit Hematology/Oncology at [address] [phone] Cl Hess MD [facility] [place] [address] Yessi Renee, [address] HEMATOLOGY AND ONCOLOGY [place], [place] [address] 11/01/2023 9:30 AM EDT Infusion Hematology Oncology at [address] [phone] 12/24/2023 1:00 PM EDT TH Visit (TeleHealth) Radiation Oncology at [address] [phone] Ping Moore PA [facility] HEMATOLOGY [place] [address] documented as of this encounter Procedures Procedure Name Priority Date/Time Associated Diagnosis Comments FILM LIBRARY STORAGE ONLY CT ABDOMEN AND PELVIS Routine 09/02/2023 3:45 PM EDT documented in this encounter Results * Film Library- Storage Only CT Abdomen & Pelvis (09/02/2023 3:45 PM EDT) 09/03/2023 8:26 AM EDT Narrative RAD - 09/03/2023 8:26 AM EDT This exam is auto-finalizing. It's purpose is for storage only. Unknown IMG FILM LIBRARY ORD ERABLES Performing Organization Address City/State/[facility] Co de Phone Number [place], [place] documented in this encounter Visit Diagnoses Not on filedocumented in this encounter Care Teams Lavatory Attendant Relationship Specialty Start Date End Date Tristen Hunter MD [address] [place] [address] [place] [address] PCP - General Family Medicine 07/04/23 documented as of this encounter
--- OUTSIDE RECORDS SUMMARY | 2023-10-06 00:37 | XMS_ITS | Encounter Summary ---
Author Organization [facility] [place] [address] Care Team Providers Care Stage Set Designer Name Role Phone Tristen Hunter MD Primary Care Provider [phone] Reason for Referral * Consultation (Routine) - Authorized Specialty Diagnoses / Procedures Referred By Marques livingston Referred To Contact Radiation Oncology Diagnoses Malignant neoplasm of head of pancreas Yessi Renee APRN [address] [place] [address] DR [place] [address] St Rad Onc Office [address] [place] [phone] Referral ID Status Reason Start Date Expiration Date Visits Requested Visits Authorized [id number] Authorized Consult, Test & Treat 09/20/2023 09/19/2024 1 1 Encounter Details Date Type Department Care Team (Late st Contact Info) Description 09/20/2023 9:00 AM EDT Office Visit Hematology/Oncology at [address] [phone] Cl Hess MD [facility] [place] [address] Yessi Renee APRN [address] [place] [address] DR [place] [address] Malignant neoplasm of head of pancreas Social History Tobacco Use Types Packs/Day Years Used Date Smoking Tobacco: Former Cigarettes 07 01 1 963 1992 Smokeless Tobacco: Never Alcohol Use Standard Drinks/Week Comments Yes 7 (1 standard drink = 0.6 oz pur e alcohol) [facility] Utilities Answer Date Recorded In [...] place to sleep or slept in a prison (including now)? No 06/04/2023 DH IPV Inpatient [...] Sign Reading Time Taken Comments Blood Pressure 125/62 09/20/2023 9:06 AM EDT Pulse 79 09/20/2023 9:06 AM EDT Temperature 36.2 ??C (97.1 ??F) 09/20/2023 9:06 AM ED T Respiratory Rate 18 09/20/2023 9:06 AM EDT Oxygen Saturation 99% 09/20/2023 9:06 AM EDT Inhaled Oxygen Concentration - - Weight 92.4 kg (203 lb 12.8 oz) 09/20/2023 9:06 AM EDT Height 180.3 cm (5' 10.98) 09/20/2023 9:06 AM E DT Body Mass Index 28.44 09/20/2023 9:06 AM EDT documented in this encounter Progress Notes * Yessi Renee APRN - 09/20/2023 9:00 AM EDT Subjective Patient ID: Wero [...] periduodenal or perilesional adenopathy was appreciated Impression: [id number] pancreas head mass lesion with biliary and [...] metastatic disease/disease progression on interim staging evaluation. [facility] second read of CT c/a/p from 05/22/23 [...] Began therapy with mFolfirinox H. CT c/a/p 09/02/23: Impression: Chest: 1. Debris within the trachea 2. Trace R pleural effusion. Bibasilar reticular markings similar to prior study. 3. Coronary artery disease. Atherosclerotic disease. 4. Additional findings as discussed above. Abd/Pelvis: 1. Dilated air-filled intrahepatic biliary ducts and dilated pancreatic duct with cystic lesion in the pancreatic head similar to prior study. Biliary stent in place. 2. Markedly distended contrast and food filled stomach. 3. Constipation 4. Additional findings as discussed above 2. Colorectal cancer S/p resection in 2008 [...] his right eye 2019 due to CVA 14. Genetic testing: Result: [employer] Cancer[employer]-Expanded +RNAinsight Panel showed no mutation was detected. HPI Wero Sadler is seen for evaluation and management of pancreatic cancer. The history is summarized above. Wero is by himself in clinic today, he is feeling generally well. He is taking creon with meals (2 with meals and 1 snacks). Have been holding treatment related dex to manage his blood sugars and he's had no nausea. Eating well, like a horse he notes. He is not having any nausea, vomiting, or abd pain. He tells me he's having regular bowel movements, 1-2 per day. He describes them as somewhat loose but not bad. He's drinking 2-3 liters of fluids (mostly water) per day. Denies heartburn, denies any dysphagia. Weight continues to rise. 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 No pain other than this cyst in his L buttock that has been there for about a year. No fevers or recent infections. Breathing is stable, no new cough, no headaches, dizziness, or lightheadedness. No chest pain or swelling. He has set his smart phone up to his dexcom and is now able to manage his sugars better as lelia reads his numbers to him out loud. This AM's reading was 106. 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 Objective Physical Exam Vitals reviewed. Constitutional: General: [...] normal. Psychiatric: Mood and Affect: Mood normal. BP 125/62 (Patient Position: Sitting) Pulse 79 Temp 36.2 ??C (97.1 ??F) (Temporal) Resp 18 Ht 180.3 cm (5' 10.98) Wt 92.4 kg (203 lb 12.8 oz) SpO2 99% BMI 28.44 kg/m?? Labs: WBC/ANC - 3.03/1599, Hgb/Hct - 10.4/32, Plts - 152,000. BUN/Cr - 17/0.69, Glucose - 106 this AM on dexcom, chloride 108, Ca 8.4, t protein 6.3, remainder of CMP otherwise unremarkable CA 19-9 08/30/23 242 08/08/23 317 07/23/23 420 07/09/23 528 06/27/23 668 06/25/23 390 05/22/23 684.7 ([place]) Assessment and Plan Wero Sadler is 73 yo, seen for evaluation and management of pancreatic cancer. He has a h/o multiple medical problems as above, including colon cancer, prostate cancer, ASCVD, PVDz s/p carotid endarterectomy, prior CVA, DM and others. 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 While in [facility], he presented with chest pain and SOB [...] with Medical Oncology and Surgical Oncology in [facility]. Per patient, the tumor was felt to be surgically removable, although he says that upfront chemotherapy was also discussed. Pathology was requested for review at [facility] and we also requested that images be sent. His case was reviewed at [facility] on 06/18/23. The Ct from 05/22/23 was available for review. The recommendation was for a diagnostic laparoscopy to complete the staging. Assuming no evidence of metastaticdisease, consider neoadjuvant chemotherapy x 4 months followed [...] and he met with Tao Cardenas on 06/13/23, no mutation was detected. He will be followed also by our clinical mule developer, Lupe Velasquez. On 07/12/23 he began neoadjuvant therapy with mFolfirinox. 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 He is tolerating therapy well so far. We will plan to keep the doses reduced ongoing as above. Management of his blood sugar has been challenging, though his PCP has increased his insulin doses and today they've been improved. We have been holding dexamethasone as well and he has had no nausea. Plan: Labs and toxicities assessed and acceptable for ongoing treatment. Proceed with C6 today Continue to omit dex per pt request Continue close monitoring of blood sugars at home RTC in 2 weeks for consideration of C7 (plan for 8 cycles prior to XRT). Radiation oncology referral placed today documented in this encounter Plan of Treatment Upcoming Encounters Date Type Department Care Team (Late st Contact Info) Description 10/11/2023 10:00 AM EDT Tech Visit [place] [phone] Giacomo Queen 10/11/2023 11:15 AM EDT Office Visit [place] [phone] Basim Barr MD [facility] [place] [address] 10/18/2023 9:00 AM EDT Office Visit Hematology/Oncology at [address] [phone] Cl Hess MD [facility] [place] [address] Yessi Renee [address] HEMATOLOGY AND ONCOLOGY [place], [place] [phone] 10/18/2023 9:30 AM EDT Infusion Hematology Oncology at [address] [phone] 10/24/2023 9:30 AM EDT Scheduled View Only Radiation Oncology at [address] [phone] Rad Nurse, [facility] 10/24/2023 10:00 AM EDT Office Visit Radiation Oncology at [address] [phone] Bigg Peters MD [address] [place] [address] DR RADIATION ONCOLOGY [place], [place] [phone] 11/01/2023 9:00 AM EDT Office Visit Hematology/Oncology at [address] [phone] Cl Hess MD [facility] [place] [address] Yessi Renee [address] HEMATOLOGY AND ONCOLOGY [place], [place] [address] 11/01/2023 9:30 AM EDT Infusion Hematology Oncology at [address] [phone] 12/24/2023 1:00 PM EDT TH Visit (TeleHealth) Radiation Oncology at [address] [phone] Ping Moore PA [facility] [place] [address] Scheduled Referrals Name Type Priority Associated Diagnoses Orde r Schedule Referral to Radiation Oncology Outpatient Referral Routine Malignant neoplasm of head of pancreas Ordered: 09/20/2023 documented as of this encounter Visit Diagnoses Diagnosis Malignant neoplasm of head of pancreas documented in this encounter Care Teams Stage Set Designer Relationship Specialty Start Date End Date Tristen Hunter MD [address] [place] [address] [place] [address] PCP - General Family Medicine 07/04/23 documented as of this encounter
--- OUTSIDE RECORDS SUMMARY | 2023-10-06 00:37 | XMS_ITS | Encounter Summary ---
Author Organization [facility] Address [facility] [place] [address] Care Team Providers Care Bee Rancher Name Role Phone Tristen Hunter MD Primary Care Provider [phone] Encounter Details Date Type Department Care Team (Late st Contact Info) Description 08/20/2023 Orders Only Radiation Oncology at [address] [phone] Ping Moore PA [facility] DR [place] [address] Malignant neoplasm of prostate Social History Tobacco Use Types Packs/Day Years Used Date Smoking Tobacco: Former Cigarettes 4 30 1 963 - 1992 Smokeless Tobacco: Never Alcohol Use Standard Drinks/Week Comments Yes 7 (1 standard drink = 0.6 oz pur e alcohol) [facility] Utilities Answer Date Recorded In the past 12 months has [employer], gas, oil, or water [employer] threatened to shut off services in your [...] AM EDT [place] [address] Giacomo Queen 10/11/2023 11:15 AM EDT Office [place] [address] Basim Barr MD [facility] [place] [address] 10/18/2023 9:00 AM EDT Office Visit Hematology/Oncology at [address] [phone] Cl Hess MD [facility] [place] [address] Yessi Renee, [address] HEMATOLOGY AND ONCOLOGY [place], [place] [phone] 10/18/2023 9:30 AM EDT Infusion Hematology Oncology at [address] [phone] 10/24/2023 9:30 AM EDT Scheduled View Only Radiation Oncology at [address] [phone] Jeronimo Bowen [place] 10/24/2023 10:00 AM EDT Office Visit Radiation Oncology at [address] [phone] Bigg Peters MD [address] [place] [address] DR RADIATION ONCOLOGY [place], [place] [phone] 11/01/2023 9:00 AM EDT Office Visit Hematology/Oncology at [address] [phone] Cl Hess MD [facility] [place] [address] HEMATOLOGY AND ONCOLOGY [place], [place] [phone] 11/01/2023 9:30 AM EDT Infusion Hematology Oncology at [address] [phone] 12/24/2023 1:00 PM EDT TH Visit (TeleHealth) Radiation Oncology at [address] [phone] Ping Moore PA [facility] [place] [address] documented as of this encounter Visit Diagnoses Diagnosis Malignant neoplasm of prostate documented in this encounter Care Teams Bee Rancher Relationship Specialty Start Date End Date Tristen Hunter MD [address] [place] [address] [place] [address] PCP - General Family Medicine 07/04/23 documented as of this encounter
--- OUTSIDE RECORDS SUMMARY | 2023-10-06 00:37 | XMS_ITS | Encounter Summary ---
[place] [address] Care Team Providers Care Sales Support Administrator Name Role Phone Tristen Hunter MD Primary Care Provider [phone] Encounter Details Date Type Department Care Team (Late st Contact Info) Description 09/02/2023 3:45 PM EDT Ancillary Procedure [place] [address] Unknown None Social History Tobacco Use Types Packs/Day Years Used Date Smoking Tobacco: Former Cigarettes 4 3 1992 Smokeless Tobacco: Never Alcohol Use Standard Drinks/Week Comments Yes 7 (1 standard drink = 0.6 oz pur e alcohol) [facility] Utilities Answer Date Recorded In the [...] AM EDT Tech [place] [address] Giacomo Queen 10/11/2023 11:15 AM EDT Office [place] [address] Basim Barr MD [facility] [place] [address] 10/18/2023 9:00 AM EDT Office Visit Hematology/Oncology at [address] [phone] Cl Hess MD [facility] [place] [address] Yessi Renee APRN [address] HEMATOLOGY AND ONCOLOGY [place], [place] [address] 10/18/2023 9:30 AM EDT Infusion Hematology Oncology at [address] [phone] 10/24/2023 9:30 AM EDT Scheduled View Only Radiation Oncology at [address] [phone] Rad Nurse, [facility] 10/24/2023 10:00 AM EDT Office Visit Radiation Oncology at [address] [phone] Bigg Peters MD [address] [place] [address] DR RADIATION ONCOLOGY [place], [place] [address] 11/01/2023 9:00 AM EDT Office Visit Hematology/Oncology at [address] [phone] Cl Hess MD [facility] [place] [address] Yessi Renee, [address] HEMATOLOGY AND ONCOLOGY [place], [place] [address] 11/01/2023 9:30 AM EDT Infusion Hematology Oncology at [address] [phone] 12/24/2023 1:00 PM EDT TH Visit (TeleHealth) Radiation Oncology at [address] [phone] Ping Moore PA [facility] [place] [address] documented as of this encounter Procedures Procedure [...] only. Unknown IMG FILM LIBRARY ORD ERABLES [place], [place] documented in this encounter Visit Diagnoses Not on filedocumented in this encounter Care Teams Sales Support Administrator Relationship Specialty Start Date End Date Tristen Hunter MD [address] [place] [address] [place] [address] PCP - General Family Medicine 07/04/23 documented as of this encounter
--- OUTSIDE RECORDS SUMMARY | 2023-10-06 00:37 | XMS_ITS | Encounter Summary ---
[facility] [place] [address] Care Team Providers Care Immunopathologist Name Role Phone Tristen Hunter MD Primary Care Provider [phone] Encounter Details Date Type Department Care Team (Latest Contact Info) Description 08/09/2023 Travel Social History Tobacco Use Types Packs/Day Years Used Date Smoking Tobacco: Former Cigarettes 4 30 1 963 1992 Smokeless Tobacco: Never Alcohol Use Standard Drinks/Week Comments Yes 7 (1 standard drink = 0.6 oz pur e alcohol) [facility] Utilities Answer Date Recorded In the past [...] place to sleep or slept in a snf (including now)? No 06/04/2023 IPV Inpatient Questions [...] AM EDT Tech [place] [address] Giacomo Queen 10/11/2023 11:15 AM EDT Office Visit [place] [address] Basim Barr MD [facility] [place] [address] 10/18/2023 9:00 AM EDT Office Visit Hematology/Oncology at [address] [phone] Cl Hess MD [facility] [place] [address] Yessi Renee APRN [address] [place] [address] DR HEMATOLOGY AND ONCOLOGY [place], [place] [phone] 10/18/2023 9:30 AM EDT Infusion Hematology Oncology at [address] [phone] 10/24/2023 9:30 AM EDT Scheduled View Only Radiation Oncology at [address] [phone] St La Nena Champagne 10/24/2023 10:00 AM EDT Office Visit Radiation Oncology at [address] [phone] Bigg Peters MD [address] [place] [address] DR RADIATION ONCOLOGY [place], [place] [phone] 11/01/2023 9:00 AM EDT Office Visit Hematology/Oncology at [address] [phone] Cl Hess MD [facility] [place] [address] Yessi Renee APRN [address] [place] [address] DR HEMATOLOGY AND ONCOLOGY [place], [place] [phone] 11/01/2023 9:30 AM EDT Infusion Hematology Oncology at [address] [phone] 12/24/2023 1:00 PM EDT TH Visit (TeleHealth) Radiation Oncology at [address] [phone] Ping Moore PA [facility] DR [place] [address] documented as of this encounter Visit Diagnoses Not on filedocumented in this encounter Care Teams Immunopathologist Relationship Specialty Start Date End Date Tristen Hunter MD [address] [place] [address] [place] [address] PCP - General Family Medicine 07/04/23 documented as of this encounter
--- OUTSIDE RECORDS SUMMARY | 2023-10-06 00:37 | XMS_ITS | Encounter Summary ---
Author Organization [facility] Address [facility] [place] [address] Care Team Providers Care Nail Welter Name Role Phone Tristen Hunter MD Primary Care Provider [phone] Reason for Visit * Reason Comments Chemotherapy * Treatment/Therapy Plan Authorization (Routine) - Authorized Specialty Diagnoses / Procedures Referred By Marques livingston Referred To Contact Diagnoses Malignant neoplasm of prostate Cl Hess MD [facility] [place] [address] Stj Hem Onc Infusion [address] [place] [phone] Referral ID Status Reason Start Date Expiration Date V isits Requested Visits Authorized [id number] Authorized 07/11/2023 07/10/2024 99 99 Encounter Details Date Type Department Care Team (Late st Contact Info) Description 09/06/2023 10:00 AM EDT Infusion Hematology Oncology at [address] [phone] Malignant neoplasm of prostate Social History Tobacco Use Types Packs/Day Years Used Date Smoking Tobacco: Former Cigarettes 4 30 1 3 - 1992 Smokeless Tobacco: Never Alcohol Use Standard Drinks/Week Comments Yes 7 (1 standard drink = 0.6 oz pur e alcohol) [facility] Utilities Answer Date Recorded In the past 12 months has [employer] electric, gas, oil, or water company threatened [...] a long term (including now)? No 06/04/2023 DH IPV Inpatient [...] Progress Notes * Booker Maldonado, RN - 09/06/2023 10:00 AM EDT INFUSION THERAPY ADMINISTRATION NOTES DIAGNOSIS: Pancreatic CA CYCLE #: C5D1 REASON FOR VISIT: MODIFIED FOLFIRINOX infusion and initiation of continuous home 5FU infusion via CADD pump provided by [employer] JORDYN Conteh met with Marilee prior to infusion. Dex as premed was held per Marilee. No further complaints. OBJECTIVE LAB DATA: Labs reviewed and found adequate for treatment. BUN 19; Creat 0.73; WBC 2.7; PLT 191; ANC1.4 (from 08/29 per Marilee) Pre administration: Chemotherapy orders independently verified for drug name, route, and dosage per patient's height, weight and BSA by BOOKER FRANCOIS, RN , Kandi Hooks RN , Olga Arshad RN, and Pharm Fredi At time of administration Patient identity verified using patient's name and date of at the chair/bedside by double RN check just prior to initiating the patient's home infusion chemotherapy via CADD pump provided by [employer] (formerly [employer]). Amount infused verified by double RN check after 15 minutes and appropriate amount had infused. REACTIONS (DESCRIPTION, TIME, INTERVENTION AND EFFECTIVENESS) none ASSESSMENT Wero was awake, alert and tolerated treatment well. Port checked for good blood return and patency per use. PLAN Pump disconnect at [facility] Saturday 1255H per Fanny. documented in this encounter Plan of Treatment Upcoming Encounters Date Type Department Care Team (Late st Contact Info) Description 10/11/2023 10:00 AM EDT Tech Visit [place] [address] Giacomo Queen 10/11/2023 11:15 AM EDT Office [place] [address] Basim Barr MD [facility] [place] [address] 10/18/2023 9:00 AM EDT Office Visit Hematology/Oncology at [address] [phone] Cl Hess MD [facility] [place] [address] Yessi Renee APRN [address] [place] [address] DR HEMATOLOGY AND ONCOLOGY [place], [place] [phone] 10/18/2023 9:30 AM EDT Infusion Hematology Oncology at [address] [phone] 10/24/2023 9:30 AM EDT Scheduled View Only Radiation Oncology at [address] [phone] Jeronimo NurseSt Deutsch 10/24/2023 10:00 AM EDT Office Visit Radiation Oncology at [address] [phone] Bigg Peters MD [address] [place] [address] DR RADIATION ONCOLOGY [place], [place] [phone] 11/01/2023 9:00 AM EDT Office Visit Hematology/Oncology at [address] [phone] Cl Hess MD [facility] [place] [address] Yessi Renee APRN [address] [place] [address] DR HEMATOLOGY AND ONCOLOGY [place], [place] [phone] 11/01/2023 9:30 AM EDT Infusion Hematology Oncology at [address] [phone] 12/24/2023 1:00 PM EDT TH Visit (TeleHealth) Radiation Oncology at [address] [phone] Ping Moore PA [facility] DR [place] [address] documented as of this encounter Visit Diagnoses Diagnosis Malignant neoplasm of prostate documented in this encounter Administered Medications Inactive Administered Medications - up to 3 most recent administrations Medication Order MAR Action Action Date Dose Rate Site aprepitant (Cinvanti) (7.2 mg/mL) injection emulsion 130 mg 130 mg, Intravenous, Administer over 2 Minutes, ONCE, 1 dose, On Sat09/06/23 at 1015, Alternative administration of IV push over 2 minutes is a recommendation from the manga artist. Administer prior to chemotherapy., Routine Given 09/06/2023 10:20 AM EDT 130 mg atropine (0.1 mg/mL) injection 0.5 mg 0.5 mg, Intravenous, Administer over 1 Minutes, ONCE, 1 dose, On Sat09/06/23 at 1015, Administer prior to IRINOtecan, Routine Given 09/06/2023 12:58 PM EDT 0.5 mg fluorouraciL (AdruciL) in sodium chloride 0.9% 138 mL infusion (46 Hour - For Home Use) 4,800 mg 4,800 mg (2,400 mg/m2/dose ? 2 m2 Treatment Plan BSA from Recorded weight), Intravenous, ONCE, 1 dose, On Sat09/06/23 at 1445, Administer over 46 Hours, Warning Vesicant/Irritant Medication To be infused via an ambulatory infusion CADD Colon pump continuously IV at 3 mL/hr for 46 hours. Pump contains a 46 hour supply and provides a daily dose of 1,200 mg/m2/day = 2,400 mg/m2 IV over 46 hours. Given 09/06/2023 2:54 PM EDT 4,800 mg 3 mL/hr IRINOtecan (Camptosar) 200 mg in dextrose 5% 510 mL infusion 200 mg (rounded from 210 mg = 105 mg/m2/dose ? 2 m2 Treatment Plan BSA from Recorded weight), Intravenous, ONCE, 1 dose, On Sat09/06/23 at 1115, Administer over 90 Minutes, Warning Vesicant/Irritant Medication Administer 30 minutes after the start of the leucovorin. New Bag 09/06/2023 1:03 PM EDT 200 mg 340 mL/hr leucovorin (Wellcovorin) 350 mg in dextrose 5% 85 mL infusion 350 mg, Intravenous, ONCE, 1 dose, On Sat09/06/23 at 1115, Administer over 120 Minutes, Administer upon completion of OXALIplatin infusion. Do not administer at a rate faster than 160 milligrams/minute. New Bag 09/06/2023 12:26 PM EDT 350 mg 42.5 mL/hr OXALIplatin (Eloxatin) 136 mg in dextrose 5% 277.2 mL infusion 136 mg (68 mg/m2/dose ? 2 m2 Treatment Plan BSA from Recorded weight), Intravenous, ONCE, 1 dose, On Sat09/06/23 at 1115, Administer over 85 Minutes, Administer first. Compatible with dextrose-containing solution only. Warning Vesicant/Irritant Medication New Bag 09/06/2023 10:48 AM EDT 136 mg 195.7 mL/hr palonosetron (Aloxi) (0.05 mg/mL) injection 0.25 mg 0.25 mg, Intravenous, ONCE, 1 dose, On Sat09/06/23 at 1015, Administer over 30 seconds., Routine Given 09/06/2023 10:20 AM EDT 0.25 mg documented in this encounter Care Teams Nail Welter Relationship Specialty Start Date End Date Tristen Hunter MD [address] [place] [address] [place] [address] PCP - General Family Medicine 07/04/23 documented as of this encounter
--- OUTSIDE RECORDS SUMMARY | 2023-10-06 00:37 | XMS_ITS | Encounter Summary ---
Author Organization [facility] Address [facility] [place] [address] Care Team Providers Care Curtain Cutter Name Role Phone Tristen Hunter MD Primary Care Provider [phone] Encounter Details Date Type Department Care Team (Late st Contact Info) Description 09/06/2023 9:30 AM EDT Office Visit Hematology/Oncology at [address] [phone] Cl Hess MD [facility] [place] [address] Yessi Renee, [address] HEMATOLOGY AND ONCOLOGY [place], [place] [phone] Malignant neoplasm of head of pancreas Social History Tobacco Use Types Packs/Day Years Used Date Smoking Tobacco: Former Cigarettes 30 1 963 - 1992 Smokeless Tobacco: Never Alcohol Use Standard Drinks/Week Comments Yes 7 (1 standard drink = 0.6 oz pur e alcohol) [facility] Utilities Answer Date Recorded In the past 12 months has [employer], gas, oil, or water [employer] threatened to shut off services in your [...] Sign Reading Time Taken Comments Blood Pressure 119/58 09/06/2023 9:12 AM EDT Pulse 72 09/06/2023 9:12 AM EDT Temperature 36.4 ??C (97.5 ??F) 09/06/2023 9:12 AM ED T Respiratory Rate 18 09/06/2023 9:12 AM EDT Oxygen Saturation 98% 09/06/2023 9:12 AM EDT Inhaled Oxygen Concentration - - Weight 91 kg (200 lb 9.6 oz) 09/06/2023 9:12 AM EDT Height 180.3 cm (5' 10.98) 09/06/2023 9:12 AM E DT Body Mass Index 27.99 09/06/2023 9:12 AM EDT documented in this encounter Progress Notes * Thelma Yessi A, HAIRSPRING STUDDER - 09/06/2023 9:30 AM EDT Subjective Patient ID: Wero Sadler [...] periduodenal or perilesional adenopathy was appreciated Impression: [id number] pancreas head mass lesion with biliary and [...] disease/disease progression on interim staging evaluation. E. [facility] second read of CT c/a/p from 05/22/23 [...] due to CVA 14. Genetic testing: Result: [employer]'s CancerNext-Expanded +RNAinsight Panel showed no mutation was [...] day. Denies heartburn, denies any dysphagia. Weight is up again today. Did have some cold sensitivity neuropathy when he touched ice this cycle. 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 No pain other than this cyst in his L buttock that has been there for about a year. No fevers or recent infections. Breathing is stable, no new cough, no headaches, dizziness, or lightheadedness. No chest pain or swelling. No swelling. Abd is soft. 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 BP 119/58 (Patient Position: Sitting) Pulse 72 Temp 36.4 ??C (97.5 ??F) (Temporal) Resp 18 Ht 180.3 cm (5' 10.98) Wt 91 kg (200 lb 9.6 oz) SpO2 98% BMI 27.99 kg/m?? Labs: (drawn early, 08/30/23) WBC/ANC - 2.09/1399, Hgb/Hct - 11/34.2, Plts - 191,000. BUN/Cr - 19/0.73, Glucose - 144, remainder of CMP otherwise unremarkable CA 19-9 08/30/23 242 08/08/23 317 07/23/23 420 07/09/23 528 06/27/23 668 06/25/23 390 05/22/23 684.7 (powell) Assessment and Plan Wero Sadler is 73 yo, seen for evaluation and management of pancreatic cancer. He has a h/o multiple medical problems as above, including colon cancer, prostate cancer, ASCVD, PVDz s/p carotid endarterectomy, prior CVA, DM and others. 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 While in [facility], he presented with chest pain and SOB [...] with Medical Oncology and Surgical Oncology in [facility]. Per patient, the tumor was felt to be surgically removable, although he says that upfront chemotherapy was also discussed. Pathology was requested for review at [facility] and we also requested that images be sent. His case was reviewed at [facility] on 06/18/23. The Ct from [...] will be followed also by our clinical case advocate, Lupe Velasquez. On 07/12/23 he began neoadjuvant [...] and acceptable for ongoing treatment. Proceed with C4 today Continue to omit dex per pt request Continue close monitoring of blood sugars at home RTC in 2 weeks for consideration of C6 (plan for 8 cycles prior to XRT). Encouraged daily miralax, CT scan was positive for constipation documented in this encounter Plan of Treatment Upcoming Encounters Date Type Department Care Team (Late st Contact Info) Description 10/11/2023 10:00 AM EDT Tech [place] [address] Giacomo Queen 10/11/2023 11:15 AM EDT Office [place] [address] Basim Barr MD [facility] [place] [address] 10/18/2023 9:00 AM EDT Office Visit Hematology/Oncology at [address] [phone] Cl Hess MD [facility] [place] [address] Yessi Renee APRN [address] [place] [address] DR HEMATOLOGY AND ONCOLOGY [place], [place] [phone] 10/18/2023 9:30 AM EDT Infusion Hematology Oncology at [address] [phone] 10/24/2023 9:30 AM EDT Scheduled View Only Radiation Oncology at [address] [phone] Jeronimo Nurse La [place] 10/24/2023 10:00 AM EDT Office Visit Radiation Oncology at [address] [phone] Bigg Peters MD [address] [place] [address] DR RADIATION ONCOLOGY [place], [place] [address] 11/01/2023 9:00 AM EDT Office Visit Hematology/Oncology at [address] [phone] Cl Hess MD [facility] [place] [address] Yessi Renee APRN [address] [place] [address] DR HEMATOLOGY AND ONCOLOGY [place], [place] [address] 11/01/2023 9:30 AM EDT Infusion Hematology Oncology at [address] [phone] 12/24/2023 1:00 PM EDT TH Visit (TeleHealth) Radiation Oncology at [address] [phone] Ping Moore PA [facility] DR [place] [address] documented as of this encounter Visit Diagnoses Diagnosis Malignant neoplasm of head of pancreas documented in this encounter Care Teams Curtain Cutter Relationship Specialty Start Date End Date Tristen Hunter MD [address] [place] [address] [place] [address] PCP - General Family Medicine 07/04/23 documented as of this encounter
--- OUTSIDE RECORDS SUMMARY | 2023-10-06 00:37 | XMS_ITS | Encounter Summary ---
Author Organization [facility] Address [facility] [place] [address] Care Team Providers Care Well Drill Operator Helper Cable Tool Name Role Phone Tristen Hunter MD Primary Care Provider [phone] Encounter Details Date Type Department Care Team (Late st Contact Info) Description 07/26/2023 8:00 AM EDT Office Visit Hematology/Oncology at [address] [phone] Cl Hess MD [facility] [place] [address] Yessi Renee, [address] HEMATOLOGY AND ONCOLOGY [place], [place] [phone] Malignant neoplasm of head of pancreas Social History Tobacco Use Types Packs/Day Years Used Date Smoking Tobacco: Former Cigarettes 4 30 1 963 - 1992 Smokeless Tobacco: Never Alcohol Use Standard Drinks/Week Comments Yes 7 (1 standard drink = 0.6 oz pur e alcohol) [facility] Utilities Answer Date Recorded In the past 12 months has [employer], gas, oil, or water [employer] threatened to shut off services in your [...] place to sleep or slept in a care home (including now)? No 06/04/2023 DH IPV [...] Sign Reading Time Taken Comments Blood Pressure 129/65 07/26/2023 7:45 AM EDT Pulse 67 07/26/2023 7:45 AM EDT Temperature 36.3 ??C (97.3 ??F) 07/26/2023 7:45 AM ED T Respiratory Rate 18 07/26/2023 7:45 AM EDT Oxygen Saturation 100% 07/26/2023 7:45 AM EDT Inhaled Oxygen Concentration - - Weight 83.7 kg (184 lb 9.6 oz) 07/26/2023 7:45 A M EDT Height 180.3 cm (5' 10.98) 07/26/2023 7:45 AM E DT Body Mass Index 25.76 07/26/2023 7:45 AM EDT documented in this encounter Progress Notes * Cl Hess MD - 07/26/2023 8:00 AM EDT Subjective Patient ID: Wero Sadler [...] periduodenal or perilesional adenopathy was appreciated Impression: [id number] pancreas head mass lesion with biliary and [...] disease/disease progression on interim staging evaluation. E. [facility] second read of CT c/a/p from 05/22/23 [...] G. 07/12/23 - Began therapy with mFolfirinox 2. Colorectal cancer S/p resection in 2008 [...] 07/12/23, he began therapy with mFolfirinox, s/p 1 cycle. Wero is by himself in clinic today. He came by RCT today. He and Amy unfortunately are no longer together.. He tolerated the first cycle well. He is eating well and had no nausea or vomiting. Hisweight is a couple or pounds higher. No diarrhea. He is taking creon with meals (2 with meals and 1snacks). No diarrhea. 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 No worsening of symptoms with the first cycle. 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 Labs: WBC/ANC - 3.03/1699, Hgb/Hct - 10.8/34.2, Plts - 179,000. BUN/Cr - 18/0.75. Glucose - 414, alkphos - 160, Alb - 3.2. Lytes and LFTs, o/w unremarkable CA 19-9 07/26/23 06/25/23 390 05/22/23 684.7 Assessment and Plan Wero Sadler is 73 yo, seen for evaluation and management of pancreatic cancer. He has a h/o multiple medical problems as above, including colon cancer, prostate cancer, ASCVD, PVDz s/p carotid endarterectomy, prior CVA, DM and others. 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 While in [facility], he presented with chest pain and SOB [...] with Medical Oncology and Surgical Oncology in [facility]. Per patient, the tumor was felt to be surgically removable, although he says that upfront chemotherapy was also discussed. We met on 06/07/23. Pathology was requested for review at [facility] and we also requested that images be [...] regarding mFolfirinox. We reviewed his case at [facility] on 06/18/23. The Ct from 05/22/23 was [...] plan was for a blood draw in [facility] once he starts his infusions. If genetic testing showed a BRCA or PALB2 mutation, he may be eligible for a clinical trial looking at theuse olaparib following completion of chemotherapy and surgery to see if this improves RFS. He will be followed also by our clinical chief deputy sheriff, Lupe Velasquez. On 07/12/23 he began neoadjuvant therapy with mFolfirinox. 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 He tolerated the first cycle well. The labs from 07/22 show the WBC/ANC to be low but adequate to proceed with cycle 2. I will plan to keep the doses the same for this cycle. The BS was very elevated.An accucheck was done this AM and the level is 343. We discussed that he is getting dexamethasone today which may raise the BS's. He takes long acting insulin 2x/day and is supposed to check his BS'stid at home and use SS insulin as needed. He has a dexcom monitor which his brother reads for him. However, this has not been working. He is going to have this checked today. I emphasized the importance of checking this and using the SS insulin in general, but in particular over the next 24-48 hours because of the dexamethasone. I also think he needs to f/u with his PCP regarding adjustment of the insulin dosing. documented in this encounter Plan of Treatment Upcoming Encounters Date Type Department Care Team (Late st Contact Info) Description 10/11/2023 10:00 AM EDT Tech [place] [phone] Giacomo Queen 10/11/2023 11:15 AM EDT Office [place] [phone] Basim Barr MD [facility] [place] [address] 10/18/2023 9:00 AM EDT Office Visit Hematology/Oncology at [address] [phone] Cl Hess MD [facility] [place] [address] Yessi Renee, [address] HEMATOLOGY AND ONCOLOGY [place], [place] [phone] 10/18/2023 9:30 AM EDT Infusion Hematology Oncology at [address] [phone] 10/24/2023 9:30 AM EDT Scheduled View Only Radiation Oncology at [address] [phone] Jeronimo Bowen, [place] 10/24/2023 10:00 AM EDT Office Visit Radiation Oncology at [address] [phone] Bigg Peters MD [address] [place] [address] DR RADIATION ONCOLOGY [place], [place] [address] [phone] 11/01/2023 9:00 AM EDT Office Visit Hematology/Oncology at [address] [phone] Cl Hess MD [facility] [place] [address] Yessi Renee, [address] HEMATOLOGY AND ONCOLOGY [place], [place] [address] 11/01/2023 9:30 AM EDT Infusion Hematology Oncology at [address] [phone] 12/24/2023 1:00 PM EDT TH Visit (TeleHealth) Radiation Oncology at [address] [phone] Ping Moore PA [facility] DR [place] [address] documented as of this encounter Visit Diagnoses Diagnosis Malignant neoplasm of head of pancreas documented in this encounter Care Teams Well Drill Operator Helper Cable Tool Relationship Specialty Start Date End Date Tristen Hunter MD [address] [place] [address] [place] [address] PCP - General Family Medicine 07/04/23 documented as of this encounter
--- OUTSIDE RECORDS SUMMARY | 2023-10-06 00:37 | XMS_ITS | Encounter Summary ---
[place] [address] Care Team Providers Care Curriculum Assistant Principal Name Role Phone Tristen Hunter MD Primary Care Provider [phone] Reason for Visit * Reason Comments Medication Management Patient Education Encounter Details Date Type Department Care Team (Late st Contact Info) Description 07/18/2023 Specialty [place] [address] Slim De aL Cruz, [facility] Social History Tobacco Use Types Packs/Day Years Used Date Smoking Tobacco: Former Cigarettes 07 01 1 963 - 1992 Smokeless Tobacco: Never Alcohol Use Standard Drinks/Week Comments Yes 7 (1 standard drink = 0.6 oz pur e alcohol) [facility] Utilities Answer Date Recorded In [...] place to sleep or slept in a longterm (including now)? No 06/04/2023 DH IPV Inpatient [...] as of this encounter Progress Notes * Slim De La Cruz RPH - 07/18/2023 11:43 AM EDT Specialty Pharmacy Consultation; Slim De La Cruz RPH Comprehensive Medication Management (CMM): Specialty Consult, Opt Out Wero Sadler Diagnosis: cancer of pancreas Therapy Start Date: pre-existing to enzyme tx (~ May 2023) Contact in person or via telephone: telephone Is the patient willing to proceed with the Clinical Assessment? No Summary and Recommendations: Wero Sadler was contacted in regards to a new prescription of CREON to be filled with the [facility]. Wero Sadler is aware of how to take this medication and of the prescribed dose. Wero Sadler was offered monthly refill reminders or option to self-fill medication. Patient's preferred outreach preference: refill reminders (calls) Economic Assessment: Patient is agreeable to medication copay: Yes Copay Amount: $2 Day Supply: 30 Date Needed: 07/23/2023 Therapy Assessment: Appropriate Therapy: Yes Current Medication Dosing/Route/Frequency: CREON 62925 units: Take two capsules by mouth with meals, and one capsule by mouth with snacks (3 snacks per day). Max 9 capsules per day. Additional equipment/supplies required: no Care Plan Reviewed and Approved by Pharmacist : Yes Problem List: Patient Active Problem List Diagnosis Code Colorectal cancer C19 Diabetes mellitus E11.9 Hypercholesterolemia E78.00 Hypertension -Labile blood pressurses I10 ASCVD (arteriosclerotic cardiovascular disease) I25.10 Primary osteoarthritis of left hip M16.12 s/p L JIMI, posterior, Dr. 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 Wu - 11/17/21 Z96.649 Bradycardia R00.1 Bladder dysfunction/retention with risk of stretch injury N31.9 Medications Reviewed: Yes Medications reconciled: No Allergies Reviewed:Yes Allergies reconciled: No Pharmacist follow-up needed: Yes Informed patient of specialty pharmacy services: Yes Welcome Packet and Rights and Responsibilities: -Patient is aware a licensed pharmacist is available 24 hours a day, 7 days a week to discuss medication-related questions or concerns: Yes -Patient verbalizes understanding of the common side effect profile of their medication. The patient is able to call 911 or seek urgent care if signs/symptoms of allergy or harmful adverse reactions occur: Yes Patient understands no changes to current drug regimen were made at the appointment and that the pharmacist is providing recommendations (summary located at top of note) for provider review and follow up. Slim De La Cruz RPH 07/18/23 11:47 AM documented in this encounter Plan of Treatment Upcoming Encounters Date Type Department Care Team (Late st Contact Info) Description 10/11/2023 10:00 AM EDT Tech [place] [address] Giacomo Queen 10/11/2023 11:15 AM EDT Office [place] [phone] Basim Barr MD [facility] [place] [address] 10/18/2023 9:00 AM EDT Office Visit Hematology/Oncology at [address] [phone] Cl Hess MD [facility] [place] [place] [address] Yessi Renee APRN [address] [place] [address] DR HEMATOLOGY AND ONCOLOGY [place], [place] [phone] 10/18/2023 9:30 AM EDT Infusion Hematology Oncology at [address] [phone] 10/24/2023 9:30 AM EDT Scheduled View Only Radiation Oncology at [address] [phone] Jeronimo NurseSt Deutsch 10/24/2023 10:00 AM EDT Office Visit Radiation Oncology at [address] [phone] Bigg Peters MD [address] [place] [address] DR RADIATION ONCOLOGY [place], [place] [id number] 11/01/2023 9:00 AM EDT Office Visit Hematology/Oncology at [address] [phone] Cl Hess MD [facility] [place] [address] Yessi Renee APRN [address] [place] [address] DR HEMATOLOGY AND ONCOLOGY [place], [place] [phone] 11/01/2023 9:30 AM EDT Infusion Hematology Oncology at [address] [phone] 12/24/2023 1:00 PM EDT TH Visit (TeleHealth) Radiation Oncology at [address] [phone] Ping Moore PA [facility] DR HEMATOLOGY [place] [address] documented as of this encounter Visit Diagnoses Not on filedocumented in this encounter Care Teams Curriculum Assistant Principal Relationship Specialty Start Date End Date Tristen Hunter MD [address] [place] [address] [place] [address] PCP - General Family Medicine 07/04/23 documented as of this encounter
--- OUTSIDE RECORDS SUMMARY | 2023-10-06 00:37 | XMS_ITS | Encounter Summary ---
Author Organization [facility] Address [facility] [place] [address] Care Team Providers Care Attic Fans Mechanic Name Role Phone Tristen Hunter MD Primary Care Provider [phone] Encounter Details Date Type Department Care Team (Latest Contact Info) Description 09/03/2023 1:45 PM EDT TH Visit (TeleHealth) Radiation Oncology at [address] [phone] Ping Moore PA [facility] DR [place] [address] Malignant neoplasm of prostate (Primary Dx); S/P radiotherapy Social History Tobacco Use Types Packs/Day Years Used Date Smoking Tobacco: Former Cigarettes 07 01 1 963 - 1992 Smokeless Tobacco: Never Alcohol Use Standard Drinks/Week Comments Yes 7 (1 standard drink = 0.6 oz pur e alcohol) [facility] Utilities Answer Date Recorded In [...] in a [facility] (including now)? No 06/04/2023 DH IPV Inpatient [...] as of this encounter Progress Notes * Ping Moore PA - 09/03/2023 1:45 PM EDT [facility] [place] [address] TELEHEALTH FOLLOW-UP: Patient: Wero Sadler : 1950 PCP: Tristen Hunter MD Urologist: Rock Myers MD (sees every 6 months) Radiation Oncologist: Bigg Peters MD (Consult Date: 01/20/21) Chief Complaint: Follow-up for high-risk prostate cancer (Stage IIIA: cT1c/mrT3a, cN0, cM0; Gleason3+3, PSA 21.6) HPI: Date of Diagnosis (Biopsy): 07/06/20 Treatment Intent: Definitive (Curative) Radiation Therapy: Completion Date Treatment Site Modality Dose per Fraction (Gy) # Fractions Total Dose (Gy) 09/06/21 Prostate; Proximal SV; Pelvis VMAT 2.5; 2.1; 1.8 28; 28; 28 70; 58.8; 50.4 Concurrent Therapy: LT-ADT (Leuprolide [Lupron Depot] IM, planned 18 months; received 13 months with coverage through 03/2022) Date Dose (mg) 01/31/21 7.5 03/2721 22.5 06/28/21 22.5 09/21/21 45 Did not receive 03/[address] [place]. Peters in 07/2022, no further Lupron needed Current treatment: Surveillance Interval Symptoms Since Last Visit on 07/31/22: General: Doing well. 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 Weight/Appetite/Diet: Lost 85 pounds in 9 months d/t diarrhea 2/2 Metformin. Since being off Metformin, has gained 20 pounds back. Respiratory: Denies SOB or cough. Cardiovascular: H/o CAD s/p CABG x 3, follows with Vascular Surgery. Denies chest pain, palpitations, calf pain/swelling, or other peripheral edema. GI: Has pancreatic cancer, currently on mFOLFIRINOX and continuous home 5FU via CADD pump, managed by Dr. Hess. Denies N/V/D/C, melena, or hematochezia. : S/p PVP 02/02/21. Continues to have nocturia x 1-2, mostly once. Occasional leakage is stable. Takes Flomax 0.4 mg QHS. Denies hematuria, dysuria, difficulty initiating urination, difficulty emptying bladder, increased urgency or frequency. Endocrine: Did not have hot flashes while on ADT. Sexual Health: Has had ED for years, not sexually active x 15 years. Not concerned by this. Musculoskeletal: S/p bilateral hip and knee replacements. Denies acute weakness. Bone Health: Denies recent fracture or bone pain. Neurological: H/o CVA in 11/2019 and 07/2021, as well as TIA on 02/20/22, 04/17/22, 05/21/22. 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 Denies headaches, seizures, peripheral neuropathy. Mood: Denies mood swings or feeling depressed. Tobacco Use: Smoked 4 PPD x > 30 years, quit on 03/04/92. Alcohol Use: Drinks 1, 4 oz glass of red wine daily. Social Support: Partner. Allergies: Allergies Allergen Reactions Belinostat Other (See Comments) UGT1A1 Poor Metabolizer. See Clinical Pharmacist Note from 07/04/23 for dosing recommendations. Cyclobenzaprine Other (See Comments) Extreme moodiness Other reaction(s): Other (See Comments) Extreme moodiness Irinotecan Other (See Comments) UGT1A1 Poor Metabolizer. See Clinical Pharmacist Note from 07/04/23 for dosing recommendations. Nilotinib Other (See Comments) UGT1A1 Poor Metabolizer. See Clinical Pharmacist Note from 07/04/23 for information. Other [Unclassified Drug] Other (See Comments) Had reaction to a dye used during vascular procedure at [facility] in [place]: shaking Has tolerated MRI and CT contrast. Pazopanib Other (See Comments) UGT1A1 Poor Metabolizer. See Clinical Pharmacist Note from 07/04/23 for information. Sacituzumab Govitecan-Hziy Other (See Comments) UGT1A1 Poor Metabolizer. See Clinical Pharmacist Note from 07/04/23 for dosing recommendations. Current Medications: Current Outpatient Medications on File Prior to Visit Medication Sig Dispense Refill tamsulosin (Flomax) 0.4 mg capsule Take 1 capsule by mouth nightly. 30 capsule [address] np[address]-xeakcsqv-otxdier [address] (Creon 24) 24,000-76,000 -120,[address] capsule Take 2-3 PO with mealsand 1 PO with snacks (3 snacks per day), 10 per day 300 capsule 5 Insulin Fiasp FlexTouch U-100 100 unit/mL (3 mL) Insulin Pen Inject 3 mLs subcutaneously 3 times daily (before meals). Insulin Tresiba FlexTouch U-100 100 unit/mL (3 mL) Insulin Pen ADMINISTER 10 UNITS UNDER THE SKIN TWICE DAILY chlorthalidone (Hygroton) 25 mg tablet Take 25 mg by mouth daily. omega 2-mxi-yda-fish oil 250-350-1,000 mg Capsule Take 1,000 mg by mouth. amLODIPine (Norvasc) 10 mg Tablet Take 0.5 tablets by mouth daily. Amlodipine (Hold if SBP<120) (Patient taking differently: Take 10 mg by mouth daily. Amlodipine (Hold if SBP<120)) carvediloL (Coreg) 25 mg Tablet Take 1 tablet by mouth 2 times daily (with meals). Carvedilol (holdfor SBP <110, Hr <60) (Patient taking differently: Take 25 mg by mouth nightly. Carvedilol (hold for SBP <110, Hr <60)) lisinopriL (Zestril) 40 mg Tablet Take 1 tablet by mouth daily. Lisinopril (hold for SBP <130) timoloL (Timoptic) 0.5 % Drops erythromycin (Romycin) 5 mg/gram (0.5 %) Ointment Place 1 Tube into the left eye once a week. folic acid (Folvite) 1 mg Tablet Take 1 tablet by mouth daily. 90 tablet 3 isosorbide mononitrate CR (Imdur) 30 mg Tablet Sustained Release 24 hr Take 1 tablet by mouth nightly. 30 tablet 12 atorvastatin (Lipitor) 80 mg Tablet Take 1 tablet by mouth every evening. 90 tablet 3 aspirin EC 81 mg Tablet, Delayed Release (E.C.) Take 81 mg by mouth daily. ondansetron (Zofran) 8 mg tablet Take 1 tablet by mouth every 8 hours as needed for Nausea. Do not use for 72 hours after chemotherapy (Patient not taking: Reported on 07/26/2023) 20 tablet 5 prochlorperazine (Compazine) 10 mg tablet Take 1 tablet by mouth every 6 hours as needed for Nausea. (Patient not taking: Reported on 07/26/2023) 20 tablet 5 loperamide (IMODIUM A-D) 2 mg Tablet Take by mouth 4 times daily as needed for Diarrhea. Maximum 16mg in 24 hours omeprazole (PriLOSEC) [address] capsule Take 20 mg by mouth daily. No current facility-administered medications on file prior to visit. Performance Status: KPS Score ECOG Grade Definition 90-100 0 Fully active, able to carry on all pre-disease performance without restriction 70-80 1 Restricted in physically strenuous activity but ambulatory and able to carry out work of a light or sedentary nature, e.g., light house work, office work X 50-60 2 Ambulatory and capable of all selfcare but unable to carry out any work activities; up and about more than 50% of waking hours 30-40 3 Capable of only limited selfcare; confined to bed or chair more than 50% of waking hours 10-20 4 Completely disabled; cannot carry on any selfcare; totally confined to bed or chair Physical Examination: (No vitals obtained as this is a telephone appointment.) Constitutional: conversant. Respiratory: non-labored respirations with speaking. Neurologic: alert and oriented x 3. Speech clear and coherent. Psychiatric: mood is euthymic. Insight and judgement are good. Labs Reviewed This Visit: Date PSA Testosterone ([id number]) Notes 03/2020 15.4 05/2020 18.5 10/05/20 21.6 01/20/21 16.5 01/31/21 Started Lupron 06/21/21 3.7 16 09/06/21 Completed RT 11/14/21 0.05 8 06/29/22 0.05 50 06/25/23 0.09 2.12 (Testosterone Reference Range: 1.93-7.4) Assessment & Plan: #Prostate cancer: - Completed 13 months of ADT with coverage through 03/2022. - Labs reviewed from 06/25/23: Testosterone 2.12, recovered s/p ADT. PSA 0.09, slightly increased likely 2/2 increased Testosterone, but still low. - No acute/concerning reported symptoms. - Per NCCN guidelines, PSA and H&P due every 6 months x 5 years s/p RT completion, then annually (PSA may be checked more frequently depending on risk level or other patient-specific factors). MELIA if suspicious for recurrence. - Next PSA and H&P due 6 months from last labs (12/2023). #Effects of EBRT: - Completed definitive RT to prostate, proximal SV, pelvis (see HPI) on 09/06/21. - Acute and late effects of radiation were reviewed with the patient, who currently denies new issues with the below lists. - Patient is aware that if he develops any of the late effects of radiation listed below (difficulty or changes in urine flow, blood in urine or stool) in between his regularly scheduled appointmentswith our office, then he should seek medical evaluation. Acute: LUTS (lower urinary tract symptoms) Bowel dysfunction Sexual health/Erectile Dysfunction Fatigue Mood changes Late: Changes in urinary flow/difficulty passing urine (scarring from radiation) Blood in urine: may be infection, inflammation of bladder wall (cystitis), formation of telangiectasia (small, thin blood vessels that are dilated or broken near the surface of the bladder and may bleed), or bladder/genitourinary cancer Blood in stool: may be from hemorrhoids, telangiectasia from radiation, or colorectal cancer #Survivorship: - Body weight/nutrition: recommend a well-balanced diet with adequate hydration. - Exercise: recommend at least 150 minutes of cardiovascular exercise per week, stretching twice per week, and 2 days of resistance/strength training per week. - Alcohol: recommend limiting alcohol intake to 1 drink per day for women, 2 drinks per day for men. - Sleep: recommend 7-8 hours per night. - Sunscreen: encourage SPF 30 or higher, and wearing protective clothing/hats while outside. - Follow with PCP on regular basis for: annual exam/health maintenance, immunizations, and cancer screenings (colonoscopy, lung cancer screening if appliable, etc). #Resources provided: none #Referrals placed: none Follow-Up: Next visit (phone; patient is almost completely blind): 3-4 months (= 6 months from 06/25/23 labs) Labs ([facility]): PSA Wero Sadler had the opportunity to ask questions, which were answered to the best of my knowledge. Wero Sadler agreed to contact Radiation Oncology in between visits if he has any questions/concerns or new symptoms in regards to his radiation therapy/prostate cancer. Ping Moore PA-C Radiation Oncology documented in this encounter Plan of Treatment Upcoming Encounters Date Type Department Care Team (Late st Contact Info) Description 10/11/2023 10:00 AM EDT Tech [place] [phone] Giacomo Queen 10/11/2023 11:15 AM EDT Office [place] [phone] Basim Barr MD [facility] [place] [address] 10/18/2023 9:00 AM EDT Office Visit Hematology/Oncology at [address] [phone] 84 Cl Hess MD [facility] [place] [address] Yessi Renee, [address] HEMATOLOGY AND ONCOLOGY [place], [place] [address] [phone] 10/18/2023 9:30 AM EDT Infusion Hematology Oncology at [address] [phone] 10/24/2023 9:30 AM EDT Scheduled View Only Radiation Oncology at [address] [phone] Rad Nurse, St 10/24/2023 10:00 AM EDT Office Visit Radiation Oncology at [address] [phone] Bigg Peters MD [address] [place] [address] [place] [address] 11/01/2023 9:00 AM EDT Office Visit Hematology/Oncology at [address] [phone] Cl Hess MD [facility] [place] [address] Yessi Renee [address] HEMATOLOGY [place] [address] 11/01/2023 9:30 AM EDT Infusion Hematology Oncology at [address] [phone] 12/24/2023 1:00 PM EDT TH Visit (TeleHealth) Radiation Oncology at [address] [phone] Ping Moore PA [facility] [place] [address] Scheduled Orders Name Type Priority Associated Diagnoses Orde r Schedule PSA (Ultrasensitive) Lab Routine Malignant neoplasm of prostate Expected: 12/25/2023 (Approximate), Expires: 06/25/2024 documented as of this encounter Visit Diagnoses Diagnosis Malignant neoplasm of prostate- Primary S/P radiotherapy Convalescence following radiotherapy documented in this encounter Care Teams Attic Fans Mechanic Relationship Specialty Start Date End Date Tristen Hunter MD [address] [place] [address] [place] [address] PCP - General Family Medicine 07/04/23 documented as of this encounter
--- OUTSIDE RECORDS SUMMARY | 2023-10-06 00:37 | XMS_ITS | Encounter Summary ---
Author Organization [facility] Address [facility] [place] [address] Care Team Providers Care Consulting Psychiatrist Name Role Phone Tristen Hunter MD Primary Care Provider [phone] Reason for Visit * Reason Comments Chemotherapy Folfirinox # 6 * Treatment/Therapy Plan Authorization (Routine) - Authorized Specialty Diagnoses / Procedures Referred By Marques livingston Referred To Contact Diagnoses Malignant neoplasm of prostate Cl Hess MD [facility] [address] Stj Hem Onc Infusion [address] [place] [phone] Referral ID Status Reason Start Date Expiration Date V isits Requested Visits Authorized [id number] Authorized 07/11/2023 07/10/2024 99 99 Encounter Details Date Type Department Care Team (Late st Contact Info) Description 09/20/2023 9:30 AM EDT Infusion Hematology Oncology at [address] [phone] Malignant neoplasm of prostate Social History Tobacco Use Types Packs/Day Years Used Date Smoking Tobacco: Former Cigarettes 30 1992 Smokeless Tobacco: Never Alcohol Use Standard Drinks/Week Comments Yes 7 (1 standard drink = 0.6 oz pur e alcohol) [facility] Utilities Answer Date Recorded In the past 12 months has [employer], gas, oil, or water [employer] threatened to shut off services in your [...] as of this encounter Progress Notes * Salome Barron RN - 09/20/2023 9:30 AM EDT INFUSION THERAPY ADMINISTRATION NOTES TIME TREATMENT STARTED: 0930 TIME TREATMENT ENDED: 1500 DIAGNOSIS: pancreatic cancer PROTOCOL:na CYCLE #: 6 REASON FOR VISIT: folfirinox SUBJECTIVE Wero Sadler offers no complaints. OBJECTIVE LAB DATA: Labs reviewed and found adequate for treatment. Pre administration: Chemotherapy orders independently verified for drug name, route, and dosage per patient's height, weight and BSA by Maynor Barron RN and Maynor Bartholomew pharmacist. Cadd 5 FU pump checked 15 minutes after starting 0.7 ccs went in double checked with Charleen Jiménez RN Pt will be disconnected on Saturday09/22/23 at 1230pm at [facility] port draw, left message for them about this REACTIONS (DESCRIPTION, TIME, INTERVENTION AND EFFECTIVENESS) none ASSESSMENT Wero Sadler was awake, alert and he tolerated treatment well. PLAN Return to clinic per routine. documented in this encounter Plan of Treatment Upcoming Encounters Date Type Department Care Team (Late st Contact Info) Description 10/11/2023 10:00 AM EDT Tech [place] [address] Giacomo Queen 10/11/2023 11:15 AM EDT Office Visit [place] [address] Basim Barr MD [facility] [place] [address] 10/18/2023 9:00 AM EDT Office Visit Hematology/Oncology at [address] [phone] Cl Hess MD [facility] [address] Yessi Renee APRN [address] [place] [address] DR HEMATOLOGY AND ONCOLOGY [place], [place] [id number] 10/18/2023 9:30 AM EDT Infusion Hematology Oncology at [address] [phone] 10/24/2023 9:30 AM EDT Scheduled View Only Radiation Oncology at [address] [phone] Rad Nurse, [place] 10/24/2023 10:00 AM EDT Office Visit Radiation Oncology at [address] [phone] Bigg Peters MD [address] [place] [address] DR RADIATION ONCOLOGY [place], [place] [id number] 11/01/2023 9:00 AM EDT Office Visit Hematology/Oncology at [address] [phone] Cl Hess MD [facility] [address] Yessi Renee APRN [address] [place] [address] DR HEMATOLOGY AND ONCOLOGY [place], [place] [id number] 11/01/2023 9:30 AM EDT Infusion Hematology Oncology at [address] [phone] 12/24/2023 1:00 PM EDT TH Visit (TeleHealth) Radiation Oncology at [address] [phone] Ping Moore PA [facility] [place] [address] documented as of this encounter Visit Diagnoses Diagnosis Malignant neoplasm of prostate documented in this encounter Administered Medications Inactive Administered Medications - up to 3 most recent administrations Medication Order MAR Action Action Date Dose Rate Site aprepitant (Cinvanti) (7.2 mg/mL) injection emulsion 130 mg 130 mg, Intravenous, Administer over 2 Minutes, ONCE, 1 dose, On Sat09/20/23 at 1000, Alternative administration of IV push over 2 minutes is a recommendation from the data reviewer. Administer prior to chemotherapy., Routine Given 09/20/2023 10:06 AM EDT 130 mg atropine (0.1 mg/mL) injection 0.5 mg 0.5 mg, Intravenous, Administer over 1 Minutes, ONCE, 1 dose, On Sat09/20/23 at 1000, Administer prior to IRINOtecan, Routine Given 09/20/2023 12:07 PM EDT 0.5 mg fluorouraciL (AdruciL) in sodium chloride 0.9% 138 mL infusion (46 Hour - For Home Use) 5,160 mg 5,160 mg (2,400 mg/m2/dose ? 2.15 m2 Treatment Plan BSA from Recorded weight), Intravenous, ONCE, 1 dose, On Sat09/20/23 at 1430, Administer over 46 Hours, Warning Vesicant/Irritant Medication To be infused via an ambulatory infusion CADD Colon pump continuously IV at 3 mL/hr for 46 hours. Pump contains a 46 hour supply and provides a daily dose of 1,200 mg/m2/day = 2,400 mg/m2 IV over 46 hours. Given 09/20/2023 2:32 PM EDT 5,160 mg 3 mL/hr IRINOtecan (Camptosar) 220 mg in dextrose 5% 511 mL infusion 220 mg (rounded from 225.75 mg = 105 mg/m2/dose ? 2.15 m2 Treatment Plan BSA from Recorded weight), Intravenous, ONCE, 1 dose, On Sat09/20/23 at 1100, Administer over 90 Minutes, Warning Vesicant/Irritant Medication Administer 30 minutes after the start of the leucovorin. New Bag 09/20/2023 12:50 PM EDT 220 mg 340.7 mL/hr leucovorin (Wellcovorin) 350 mg in dextrose 5% 85 mL infusion 350 mg, Intravenous, ONCE, 1 dose, On Sat09/20/23 at 1100, Administer over 120 Minutes, Administer upon completion of OXALIplatin infusion. Do not administer at a rate faster than 160 milligrams/minute. New Bag 09/20/2023 12:11 PM EDT 350 mg 42.5 mL/hr OXALIplatin (Eloxatin) 150 mg in dextrose 5% 280 mL infusion 150 mg (rounded from 146.2 mg = 68 mg/m2/dose ? 2.15 m2 Treatment Plan BSA from Recorded weight), Intravenous, ONCE, 1 dose, On Sat09/20/23 at 1100, Administer over 85 Minutes, Administer first. Compatible with dextrose-containing solution only. Warning Vesicant/Irritant Medication New Bag 09/20/2023 10:32 AM EDT 150 mg 197.6 mL/hr palonosetron (Aloxi) (0.05 mg/mL) injection 0.25 mg 0.25 mg, Intravenous, ONCE, 1 dose, On Sat09/20/23 at 1000, Administer over 30 seconds., Routine Given 09/20/2023 9:56 AM EDT 0.25 mg documented in this encounter Care Teams Consulting Psychiatrist Relationship Specialty Start Date End Date Tristen Hunter MD [address] [place] [address] [place] [address] PCP - General Family Medicine 07/04/23 documented as of this encounter
--- OUTSIDE RECORDS SUMMARY | 2023-10-06 00:37 | XMS_ITS | Encounter Summary ---
Author Organization [facility] [place] [address] Care Team Providers Care Manager Custom Name Role Phone Tristen Hunter MD Primary Care Provider [phone] Reason for Referral * Diagnostic Test (Routine) - Authorized Specialty Diagnoses / Procedures Referred By Marques livingston Referred To Contact Radiology Diagnoses Malignant neoplasm of head of pancreas Procedures CT Chest Abdomen Pelvis w Contrast (Generic) Yessi Renee APRN [address] [place] [address] DR HEMATOLOGY [place] [address] Referral ID Status Reason Start Date Expiration Date Visits Requested Visits Authorized [id number] Authorized Specialty Service Requested 08/09/2023 02/07/2025 1 1 Encounter Details Date Type Department Care Team (Late st Contact Info) Description 08/09/2023 8:30 AM EDT Office Visit Hematology/Oncology at [address] [phone] Cl Hess MD [facility] [place] [address] Yessi Renee APRN [address] [place] [address] DR HEMATOLOGY AND ONCOLOGY [place], [place] [phone] Malignant neoplasm of head of pancreas Social History Tobacco Use Types Packs/Day Years Used Date Smoking Tobacco: Former Cigarettes 4 30 1 963 - 1992 Smokeless Tobacco: Never Alcohol Use Standard Drinks/Week Comments Yes 7 (1 standard drink = 0.6 oz pur e alcohol) [facility] Utilities Answer Date Recorded In the past [...] Sign Reading Time Taken Comments Blood Pressure 106/55 08/09/2023 8:14 AM EDT Pulse 78 08/09/2023 8:14 AM EDT Temperature 36.2 ??C (97.2 ??F) 08/09/2023 8:14 AM ED T Respiratory Rate 18 08/09/2023 8:14 AM EDT Oxygen Saturation 98% 08/09/2023 8:14 AM EDT Inhaled Oxygen Concentration - - Weight 85.1 kg (187 lb 9.6 oz) 08/09/2023 8:14 A M EDT Height 180.3 cm (5' 10.98) 08/09/2023 8:14 AM E DT Body Mass Index 26.18 08/09/2023 8:14 AM EDT documented in this encounter Progress Notes * Yessi Renee, ARNOLD - 08/09/2023 8:30 AM EDT Subjective Patient ID: Wero Sadler [...] periduodenal or perilesional adenopathy was appreciated Impression: [id number] pancreas head mass lesion with biliary and [...] metastatic disease/disease progression on interim staging evaluation. [facility] second read of CT c/a/p from [...] due to CVA 14. Genetic testing: Result: [email or web address]'s CancerNext-Expanded +RNAinsight Panel showed no mutation was detected. HPI Wero Sadler is seen for evaluation and management of pancreatic cancer. The history is summarized above. On 07/12/23, he began therapy with mFolfirinox, s/p 2 cycles. Wero is by himself in clinic today, he is feeling generally well. He is taking creon with meals (2 with meals and 1 snacks). No diarrhea. 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 No worseningof symptoms with the first cycle. No n/v/d/c. No pain other than this cyst in his L buttock that has been there for about a year. Appetite is good and weight is up a bit. No fevers or recent infections. Breathing is stable, no new cough, no headaches, dizziness, or lightheadedness. No chest pain or swelling. 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 BP 106/55 (Patient Position: Sitting) Pulse 78 Temp 36.2 ??C (97.2 ??F) (Temporal) Resp 18 Ht 180.3 cm (5' 10.98) Wt 85.1 kg (187 lb 9.6 oz) SpO2 98% BMI 26.18 kg/m?? Labs: WBC/ANC - 4., Hgb/Hct - 11.2/34.4, Plts - 198,000. BUN/Cr - 20/0.65. Glucose - 118, alkphos - 118, Alb - 3.2. Lytes and LFTs, o/w unremarkable CA 19-9 08/09/23 pending 07/23/23 420 07/09/23 528 06/27/23 668 06/25/23 390 05/22/23 684.7 (lawn) Assessment and Plan Wero Sadler is 73 [...] but not performed. While in [facility] [address], he presented with chest pain and SOB [...] discussed. Pathology was requested for review at [facility] and we also requested that images be sent. His case was reviewed at [facility] on 06/18/23. The Ct from 05/22/23 was [...] will be followed also by our clinical casualty claims supervisor, Lupe Velasquez. On 07/12/23 he began neoadjuvant [...] has increased his insulin doses and today they're somewhat improved. He knows to monitor it closely in the 24-48 hours after chemotherapy due to the dexamethasone administration. He tells me he's got a growth on his L buttock that he thinks is a cyst and his PCP is supposed to be getting an MRI for, though that has yet to be scheduled. This has been there about 9-12 months and has not grown, just bothers him while seated. Plan: Labs and toxicities assessed and acceptable for ongoing treatment. Proceed with C3 today. Continue close monitoring of blood sugars at home RTC in 2 weeks for consideration of C4, plan for another CT after that visit. documented in this encounter Plan of Treatment Upcoming Encounters Date Type Department Care Team (Late st Contact Info) Description 10/11/2023 10:00 AM EDT Tech [place] [address] Giacomo Queen 10/11/2023 11:15 AM EDT Office Visit [place] [address] Basim Barr MD [facility] [place] [address] 10/18/2023 9:00 AM EDT Office Visit Hematology/Oncology at [address] [phone] Cl Hess MD [facility] [place] [address] Yessi Renee APRN [address] [place] [address] DR HEMATOLOGY AND ONCOLOGY [place], [place] [address] 10/18/2023 9:30 AM EDT Infusion Hematology Oncology at [address] [phone] 10/24/2023 9:30 AM EDT Scheduled View Only Radiation Oncology at [address] [phone] Rad Nurse, [facility] 10/24/2023 10:00 AM EDT Office Visit Radiation Oncology at [address] [phone] Bigg Peters MD [address] [place] [address] DR RADIATION ONCOLOGY [place], [place] [id number] 11/01/2023 9:00 AM EDT Office Visit Hematology/Oncology at [address] [phone] Cl Hess MD [facility] [place] [address] Yessi Renee APRN [address] [place] [address] DR HEMATOLOGY AND ONCOLOGY [place], [place] [id number] 11/01/2023 9:30 AM EDT Infusion Hematology Oncology at [address] [phone] 12/24/2023 1:00 PM EDT TH Visit (TeleHealth) Radiation Oncology at [address] [phone] Ping Moore PA [facility] DR [place] [address] Scheduled Orders Name Type Priority Associated Diagnoses Orde r Schedule CT Chest Abdomen Pelvis w Contrast (Generic) Imaging Routine Malignant neoplasm of head of pancreas Expected: 09/02/2023 (Approximate), Expires: 11/09/2023 documented as of this encounter Visit Diagnoses Diagnosis Malignant neoplasm of head of pancreas documented in this encounter Care Teams Manager Custom Relationship Specialty Start Date End Date Tristen Hunter MD [address] [place] [address] [place] [address] PCP - General Family Medicine 07/04/23 documented as of this encounter
--- OUTSIDE RECORDS SUMMARY | 2023-10-06 00:37 | XMS_ITS | Encounter Summary ---
Author Organization [facility] [address] Care Team Providers Care Filing Writer Name Role Phone Tristen Hunter MD Primary Care Provider [phone] Reason for Visit * Reason Onset Date Comments Results 07/26/2023 Encounter Details Date Type Department Care Team ([facility] st Contact Info) Description 07/26/2023 Telephone Hematology and Oncology at [address] [phone] Queenie Meneses, [facility] [place] [address] Results Social History Tobacco Use Types Packs/Day Years Used Date Smoking Tobacco: Former Cigarettes 30 1 963 - 1992 Smokeless Tobacco: Never Alcohol Use Standard Drinks/Week Comments Yes 7 (1 standard drink = 0.6 oz pur e alcohol) [facility] Utilities Answer Date Recorded In the past 12 months has [employer] electric, gas, oil, or water company threatened [...] the money to buy more. Never true 04/02/20 24 Within the past 12 months, t [...] encounter Miscellaneous Notes * Telephone Encounter - Queenie Meneses [facility] - 07/26/2023 11:20 AM EDT This test result was discussed with the patient by phone. A copy of the test results have been scanned in the medical record and sent to Wero. A summary of the results is provided below. Please be advised that [place] law requires that all health care workers respect the confidentiality of this information and not pass it along to other health care providers, insurance companies, or indivi duals without the written permission of the patient. The Familial Cancer Program welcomes any questions about these matters. Our phone number is: [phone]. On 06/13/2023 Wero was seen by Real Cardenas [facility], for genetic counseling and subsequently underwent genetic testing for a hereditary predisposition to cancers in eight major organ systems including breast, gynecologic, gastrointestinal, endocrine, genitourinary, skin, brain/nervous system, sarcoma and hematologic. Following are the results of this test. Result: [employer] CancerNext-Expanded +[employer] Panel showed no mutation was detected. This means that Wero does not carry a mutation in the genes detectable by this test. The following 71 genes were analyzed: AIP, ALK, APC, MICHELINE, BAP1, BARD1, BMPR1A, BRCA1, BRCA2, BRIP1, CDC73, CDH1, CDK4, CDKN1B, CDKN2A, CHEK2, DICER1, FH, FLCN, KIF1B, LZTR1, MAX, MEN1, MET, MLH1, MSH2, MSH6, MUTYH, NF1, NF2, NTHL1, PALB2, PHOX2B, PMS2, POT1, BRTAY3E, PTCH1, PTEN, RAD51C, RAD51D, RB1, RET, SDHA, SDHAF2, SDHB, SDHC, SDHD, SMAD4, SMARCA4, SMARCB1, SMARCE1, STK11, SUFU, MOQY748, TP53, TSC1, TSC2 and VHL (sequencing and deletion/duplication); AXIN2, CTNNA1, EGFR, EGLN1, HOXB13, KIT, MITF, MSH3, PDGFRA, POLD1 and POLE (sequencing only); EPCAM and GREM1 (deletion/duplication only) Interpretation: This test did not identify an underlying genetic cause for the personal history of colon, prostate,and pancreatic cancer and the family history of melanoma, stomach, brain, and other cancers. Possible explanations for this negative test result include: Wero's cancer and the cancer in his family may be due to non genetic, environmental causes. There could be a mutation in Wero's family that Wero did not inherit There could be mutations in other cancer genes not included in this test, or in genes yet to be discovered. There is a very small chance that a pathogenic variant/mutation could be missed due to limitations in the testing. Based on these results, Wero's daughter does not need genetic testing for hereditary cancer risk due to her paternal family history. If her mother's family history is of concern, we would recommendfurther evaluation of that side of the family by a genetic counselor. Additional germline genetic testing for Wero is not recommended at this time. Screening Recommendations Prostate cancer screening Consideration of PSA and/or MELIA screening as recommended by Wero's primary care provider. Colon cancer screening Periodic colonoscopy screening as recommended by Wero's contracts specialist and oncology care team. Skin cancer screening Skin cancer screening and sun protection are important for everyone, regardless of genetic predisposition. Consideration of routine dermatologic/skin exams, as recommended by Wero's primary care provider or manager corporate strategy. Pancreatic cancer management Pancreatic cancer management as recommended by Wero's oncology care team. documented in this encounter Plan of Treatment Upcoming Encounters Date Type Department Care Team (Late st Contact Info) Description 10/11/2023 10:00 AM EDT Tech [place] [address] Giacomo Queen 10/11/2023 11:15 AM EDT Office [place] [phone] Basim Barr MD [facility] [place] [address] 10/18/2023 9:00 AM EDT Office Visit Hematology/Oncology at [address] [phone] Cl Hess MD [facility] [place] [address] Yessi Renee APRN [address] [place] [address] DR HEMATOLOGY AND ONCOLOGY [place], [place] [address] 10/18/2023 9:30 AM EDT Infusion Hematology Oncology at [address] [phone] 10/24/2023 9:30 AM EDT Scheduled View Only Radiation Oncology at [address] [phone] St La Nena Champagne 10/24/2023 10:00 AM EDT Office Visit Radiation Oncology at [address] [phone] Bigg Peters MD [address] [place] [address] DR RADIATION ONCOLOGY [place], [place] [address] 11/01/2023 9:00 AM EDT Office Visit Hematology/Oncology at [address] [phone] Cl Hess MD [facility] [place] [address] Yessi Renee APRN [address] [place] [address] DR HEMATOLOGY AND ONCOLOGY [place], [place] [id number] 11/01/2023 9:30 AM EDT Infusion Hematology Oncology at [address] [phone] 12/24/2023 1:00 PM EDT TH Visit (TeleHealth) Radiation Oncology at [address] [phone] Ping Moore PA [facility] DR [place] [address] documented as of this encounter Visit Diagnoses Not on filedocumented in this encounter Care Teams Filing Writer Relationship Specialty Start Date End Date Tristen Hunter MD [address] [place] [address] [place] [address] PCP - General Family Medicine 07/04/23 documented as of this encounter
--- OUTSIDE RECORDS SUMMARY | 2023-10-06 00:37 | XMS_ITS | Encounter Summary ---
Author Organization [facility] [place] [address] Care Team Providers Care Tablet Repair Name Role Phone Tristen Hunter MD Primary Care Provider [phone] Encounter Details Date Type Department Care Team (Latest Contact Info) Description 08/23/2023 Travel Social History Tobacco Use Types Packs/Day Years Used Date Smoking Tobacco: Former Cigarettes 4 30 1 963 1992 Smokeless Tobacco: Never Alcohol Use Standard Drinks/Week Comments Yes 7 (1 standard drink = 0.6 oz pur e alcohol) [facility] Utilities Answer Date Recorded In [...] in a longterm (including now)? No 06/04/2023 IPV Inpatient Questions [...] AM EDT Tech [place] [address] Giacomo Queen 10/11/2023 11:15 AM EDT Office Visit [place] [address] Basim Barr MD [facility] [place] [address] 10/18/2023 9:00 AM EDT Office Visit Hematology/Oncology at [address] [phone] Cl Hess MD [facility] [place] [address] Yessi Renee APRN [address] [place] [address] DR HEMATOLOGY AND ONCOLOGY [place], [place] [id number] 10/18/2023 9:30 AM EDT Infusion Hematology Oncology at [address] [phone] 10/24/2023 9:30 AM EDT Scheduled View Only Radiation Oncology at [address] [phone] St La Nena Champagne 10/24/2023 10:00 AM EDT Office Visit Radiation Oncology at [address] [phone] Bigg Peters MD [address] [place] [address] DR RADIATION ONCOLOGY [place], [place] [phone] 11/01/2023 9:00 AM EDT Office Visit Hematology/Oncology at [address] [phone] Cl Hess MD [facility] [place] [address] Yessi Renee APRN [address] [place] [address] DR HEMATOLOGY AND ONCOLOGY [place], [place] [id number] 11/01/2023 9:30 AM EDT Infusion Hematology Oncology at [address] [phone] 12/24/2023 1:00 PM EDT TH Visit (TeleHealth) Radiation Oncology at [address] [phone] Ping Moore PA [facility] DR [place] [address] documented as of this encounter Visit Diagnoses Not on filedocumented in this encounter Care Teams Tablet Repair Relationship Specialty Start Date End Date Tristen Hunter MD [address] [place] [address] [place] [address] PCP - General Family Medicine 07/04/23 documented as of this encounter
--- OUTSIDE RECORDS SUMMARY | 2023-10-06 00:37 | XMS_ITS | Encounter Summary ---
Author Organization [facility] Address [facility] [place] [address] Care Team Providers Care Supervisor Engines Road Name Role Phone Tristen Hunter MD Primary Care Provider [phone] Encounter Details Date Type Department Care Team (Late st Contact Info) Description 08/23/2023 8:30 AM EDT Office Visit Hematology/Oncology at [address] [phone] Cl Hess MD [facility] [place] [address] Yessi Renee, [address] HEMATOLOGY AND ONCOLOGY [place], [place] [phone] Malignant neoplasm of head of pancreas; Malignant neoplasm of prostate Social History Tobacco Use Types Packs/Day Years Used Date Smoking Tobacco: Former Cigarettes 4 30 1 963 - 1992 Smokeless Tobacco: Never Alcohol Use Standard Drinks/Week Comments Yes 7 (1 standard drink = 0.6 oz pur e alcohol) [facility] Utilities Answer Date Recorded In the past 12 months has [employer] electric, gas, oil, or water company threatened [...] a skilled nursing (including now)? No 06/04/2023 DH IPV Inpatient [...] Sign Reading Time Taken Comments Blood Pressure 112/66 08/23/2023 8:31 AM EDT Pulse 73 08/23/2023 8:31 AM EDT Temperature 37 ??C (98.6 ??F) 08/23/2023 8:31 AM EDT Respiratory Rate 18 08/23/2023 8:31 AM EDT Oxygen Saturation 98% 08/23/2023 8:31 AM EDT Inhaled Oxygen Concentration - - Weight 85.7 kg (189 lb) 08/23/2023 8:31 AM EDT Height 180.3 cm (5' 10.98) 08/23/2023 8:31 AM E DT Body Mass Index 26.37 08/23/2023 8:31 AM EDT documented in this encounter Progress Notes * Thelma Yessi A, HUMAN RESOURCES MANAGER MANUFACTURING - 08/23/2023 8:30 AM EDT Subjective Patient ID: Wero [...] periduodenal or perilesional adenopathy was appreciated Impression: [id number] pancreas head mass lesion with biliary and [...] disease/disease progression on interim staging evaluation. [facility]. [facility] second read of CT c/a/p from 05/22/23 [...] due to CVA 14. Genetic testing: Result: [employer]'s CancerNext-Expanded +RNAinsight Panel showed no mutation was detected. HPI Wero Sadler is seen for evaluation and management of pancreatic cancer. The history is summarized above. Wero is by himself in clinic today, he is feeling generally well. He is taking creon with meals (2 with meals and 1 snacks). Held dex last time per his request, pt had no nausea. Stools have been softer but no diarrhea. Appetite is good, weight is up today. Did have some cold sensitivity neuropathy [...] chest pain or swelling. 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 BP 112/66 (Patient Position: Sitting) Pulse 73 Temp 37 ??C (98.6 ??F) (Temporal) Resp 18 Ht180.3 cm (5' 10.98) Wt 85.7 kg (189 lb) SpO2 98% BMI 26.37 kg/m?? Labs: WBC/ANC - 3.10/2299, Hgb/Hct - 10.5/33, Plts - 164,000. BUN/Cr - 19/0.79, Glucose - 260, alk phos - 141, Alb - 3.3, total protein 6.1,chloride 108, remainder of CMP otherwise unremarkable CA 19-9 08/22/23 pending 08/08/23 317 07/23/23 420 07/09/23 528 06/27/23 668 06/25/23 390 05/22/23 684.7 (hudson) Assessment and Plan Wero Sadler is 73 yo, seen for evaluation and management of pancreatic cancer. He has a h/o multiple medical problems as above, including colon cancer, prostate cancer, ASCVD, PVDz s/p carotid endarterectomy, prior CVA, DM and others. 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 While in [facility], he presented with chest pain and SOB [...] with Medical Oncology and Surgical Oncology in [place] Per patient, the tumor was felt to be surgically removable, although he says that upfront chemotherapy was also discussed. Pathology was requested for review at [facility] and we also requested that images be sent. His case was reviewed at [facility] on 06/18/23. The Ct from [...] will be followed also by our clinical lodging facilities manager, Lupe Velasquez. On 07/12/23 he began neoadjuvant [...] doses and today they're somewhat improved. He requested dropping the dexamethasone last cycle, and tolerated it without any issue He tells me he's got a growth [...] RTC in 2 weeks for consideration of C5 with CT scan prior documented in this encounter Plan of Treatment Upcoming Encounters Date Type Department Care Team (Late st Contact Info) Description 10/11/2023 10:00 AM EDT Tech [place] [address] Giacomo Queen 10/11/2023 11:15 AM EDT Office Visit [place] [phone] Basim Barr MD [facility] [place] [address] 10/18/2023 9:00 AM EDT Office Visit Hematology/Oncology at [address] [phone] Cl Hess MD [facility] [place] [address] Yessi Renee APRN [address] [place] [address] DR HEMATOLOGY AND ONCOLOGY [place], [place] [phone] 10/18/2023 9:30 AM EDT Infusion Hematology Oncology at [address] [phone] 10/24/2023 9:30 AM EDT Scheduled View Only Radiation Oncology at [address] [phone] St La Nena Champagne 10/24/2023 10:00 AM EDT Office Visit Radiation Oncology at [address] [phone] Bigg Peters MD [address] [place] [address] DR RADIATION ONCOLOGY [place], [place] [address] 11/01/2023 9:00 AM EDT Office Visit Hematology/Oncology at [address] [phone] Cl Hess MD [facility] [place] [address] Yessi Renee APRN [address] [place] [address] DR HEMATOLOGY AND ONCOLOGY [place], [place] [address] 11/01/2023 9:30 AM EDT Infusion Hematology Oncology at [address] [phone] 12/24/2023 1:00 PM EDT TH Visit (TeleHealth) Radiation Oncology at [address] [phone] Ping Moore PA [facility] DR HEMATOLOGY [place] [address] documented as of this encounter Visit Diagnoses Diagnosis Malignant neoplasm of head of pancreas Malignant neoplasm of prostate documented in this encounter Care Teams Supervisor Engines Road Relationship Specialty Start Date End Date Tristen Hunter MD [address] [place] [address] [place] [address] PCP - General Family Medicine 07/04/23 documented as of this encounter
--- OUTSIDE RECORDS SUMMARY | 2023-10-06 00:37 | XMS_ITS | Encounter Summary ---
Author Organization [facility] Address [facility] [place] [address] Care Team Providers Care Nut Roaster Name Role Phone Tristen Hunter MD Primary Care Provider [phone] Reason for Visit * Reason Comments Chemotherapy * Treatment/Therapy Plan Authorization (Routine) - Authorized Specialty Diagnoses / Procedures Referred By Marques livingston Referred To Contact Diagnoses Malignant neoplasm of prostate Cl Hess MD [facility] [place] [address] Stj Hem Onc Infusion [address] [place] [phone] Referral ID Status Reason Start Date Expiration Date V isits Requested Visits Authorized [id number] Authorized 07/11/2023 07/10/2024 99 99 Encounter Details Date Type Department Care Team (Late st Contact Info) Description 08/23/2023 9:00 AM EDT Infusion Hematology Oncology at [address] [phone] Malignant neoplasm of prostate Social History Tobacco Use Types Packs/Day Years Used Date Smoking Tobacco: Former Cigarettes 4 30 1 3 1992 Smokeless Tobacco: Never Alcohol Use Standard Drinks/Week Comments Yes 7 (1 standard drink = 0.6 oz pur e alcohol) [facility] Utilities Answer Date Recorded In the past 12 months has [employer], gas, oil, or water company threatened [...] Progress Notes * Booker Maldonado, RN - 08/23/2023 9:00 AM EDT INFUSION THERAPY ADMINISTRATION NOTES DIAGNOSIS: Pacreatic CYCLE #: C4D1 REASON FOR VISIT: mFOLFIRINOX infusion and initiation of continuous home 5FU infusion via CADD pumpprovided by [employer] JORDYN Conteh met with Marilee prior to infusion. Dex as premed was held per Marilee. No further complaints. OBJECTIVE LAB DATA: Labs reviewed and found adequate for treatment. BUN 19; Creat 0.79; WBC 3.8; PLT 164; ANC2.3 Pre administration: Chemotherapy orders independently verified for drug name, route, and dosage per patient's height, weight and BSA by BOOKER FRANCOIS, RN , Kandi Hooks RN , Larisa Henry RN, and Leandra Crmaer At time of administration Patient identity verified [...] patency per use. PLAN Pump disconnect at [facility] Saturday 1158H per Haleigh. documented in this encounter Plan of Treatment Upcoming Encounters Date Type Department Care Team (Late st Contact Info) Description 10/11/2023 10:00 AM EDT Tech [place] [address] Giacomo Queen 10/11/2023 11:15 AM EDT Office Visit Vascular [place] [address] Basim Barr MD [facility] [place] [address] 10/18/2023 9:00 AM EDT Office Visit Hematology/Oncology at [address] [phone] Cl Hess MD [facility] [place] [address] Yessi Renee APRN [address] [place] [address] DR HEMATOLOGY AND ONCOLOGY [place], [place] [id number] 10/18/2023 9:30 AM EDT Infusion Hematology Oncology at [address] [phone] 10/24/2023 9:30 AM EDT Scheduled View Only Radiation Oncology at [address] [phone] Rad Nurse, [facility] 10/24/2023 10:00 AM EDT Office Visit Radiation Oncology at [address] [phone] Bigg Peters MD [address] [place] [address] DR RADIATION ONCOLOGY [place], [place] [id number] 11/01/2023 9:00 AM EDT Office Visit Hematology/Oncology at [address] [phone] Cl Hess MD [facility] [place] [address] Yessi Renee APRN [address] [place] [address] DR HEMATOLOGY AND ONCOLOGY [place], [place] [id number] 11/01/2023 9:30 AM EDT Infusion Hematology Oncology at [address] [phone] 12/24/2023 1:00 PM EDT TH Visit (TeleHealth) Radiation Oncology at [address] [phone] Ping Moore PA [facility] [place] [address] documented as of this encounter Visit Diagnoses Diagnosis Malignant neoplasm of prostate documented in this encounter Administered Medications Inactive Administered Medications - up to 3 most recent administrations Medication Order MAR Action Action Date Dose Rate Site aprepitant (Cinvanti) (7.2 mg/mL) injection emulsion 130 mg 130 mg, Intravenous, Administer over 2 Minutes, ONCE, 1 dose, On Sat08/23/23 at 0930, Alternative administration of IV push over 2 minutes is a recommendation from the fabrication technician. Administer prior to chemotherapy., Routine Given 08/23/2023 9:27 AM EDT 130 mg atropine (0.1 mg/mL) injection 0.5 mg 0.5 mg, Intravenous, Administer over 1 Minutes, ONCE, 1 dose, On Sat08/23/23 at 0930, Administer prior to IRINOtecan, Routine Given 08/23/2023 12:10 PM EDT 0.5 mg fluorouraciL (AdruciL) in sodium chloride 0.9% 138 mL infusion (46 Hour - For Home Use) 4,800 mg 4,800 mg (2,400 mg/m2/dose ? 2 m2 Treatment Plan BSA from Recorded weight), Intravenous, ONCE, 1 dose, On Sat08/23/23 at 1400, Administer over 46 Hours, Warning Vesicant/Irritant Medication To be infused via an ambulatory infusion CADD Colon pump continuously IV at 3 mL/hr for 46 hours. Pump contains a 46 hour supply and provides a daily dose of 1,200 mg/m2/day = 2,400 mg/m2 IV over 46 hours. Given 08/23/2023 1:57 PM EDT 4,800 mg 3 mL/hr IRINOtecan (Camptosar) 200 mg in dextrose 5% 510 mL infusion 200 mg (rounded from 210 mg = 105 mg/m2/dose ? 2 m2 Treatment Plan BSA from Recorded weight), Intravenous, ONCE, 1 dose, On Sat08/23/23 at 1030, Administer over 90 Minutes, Warning Vesicant/Irritant Medication Administer 30 minutes after the start of the leucovorin. New Bag 08/23/2023 12:12 PM EDT 200 mg 340 mL/hr leucovorin (Wellcovorin) 350 mg in dextrose 5% 85 mL infusion 350 mg, Intravenous, ONCE, 1 dose, On Sat08/23/23 at 1030, Administer over 120 Minutes, Administer upon completion of OXALIplatin infusion. Do not administer at a rate faster than 160 milligrams/minute. New Bag 08/23/2023 11:37 AM EDT 350 mg 42.5 mL/hr OXALIplatin (Eloxatin) 136 mg in dextrose 5% 277.2 mL infusion 136 mg (68 mg/m2/dose ? 2 m2 Treatment Plan BSA from Recorded weight), Intravenous, ONCE, 1 dose, On Sat08/23/23 at 1030, Administer over 85 Minutes, Administer first. Compatible with dextrose-containing solution only. Warning Vesicant/Irritant Medication New Bag 08/23/2023 10:01 AM EDT 136 mg 195.7 mL/hr palonosetron (Aloxi) (0.05 mg/mL) injection 0.25 mg 0.25 mg, Intravenous, ONCE, 1 dose, On Sat08/23/23 at 0930, Administer over 30 seconds., Routine Given 08/23/2023 9:27 AM EDT 0.25 mg documented in this encounter Care Teams Nut Roaster Relationship Specialty Start Date End Date Tristen Hunter MD [address] [place] [address] [place] [address] PCP - General Family Medicine 07/04/23 documented as of this encounter
--- OUTSIDE RECORDS SUMMARY | 2023-10-06 00:37 | XMS_ITS | Encounter Summary ---
Author Organization [facility] Address [facility] [place] [address] Care Team Providers Care Deskidding Machine Operator Name Role Phone Tristen Hunter MD Primary Care Provider [phone] Encounter Details Date Type Department Care Team (Late st Contact Info) Description 07/24/2023 Orders Only Hematology [place] [address] Cl Hess MD [facility] [place] [address] Malignant neoplasm of head of pancreas; Pancreatic insufficiency Social History Tobacco Use Types Packs/Day Years Used Date Smoking Tobacco: Former Cigarettes 4 30 1 963 - 1992 Smokeless Tobacco: Never Alcohol Use Standard Drinks/Week Comments Yes 7 (1 standard drink = 0.6 oz pur e alcohol) [facility] Utilities Answer Date Recorded In the past 12 months has [employer], gas, oil, or water [employer] threatened to shut off services in your [...] AM EDT Tech [place] [address] Giacomo Queen 10/11/2023 11:15 AM EDT Office [place] [address] Basim Barr MD [facility] [place] [address] 10/18/2023 9:00 AM EDT Office Visit Hematology/Oncology at [address] [phone] Cl Hess MD [facility] [place] [address] Yessi Renee [address] HEMATOLOGY AND ONCOLOGY [place], [place] [phone] 10/18/2023 9:30 AM EDT Infusion Hematology Oncology at [address] [phone] 10/24/2023 9:30 AM EDT Scheduled View Only Radiation Oncology at [address] [phone] [facility]agne 10/24/2023 10:00 AM EDT Office Visit Radiation Oncology at [address] [phone] Bigg Peters MD [address] [place] [address] DR RADIATION ONCOLOGY [place], [place] [id number] 11/01/2023 9:00 AM EDT Office Visit Hematology/Oncology at [address] [phone] Cl Hess MD [facility] [address] Yessi Renee [address] HEMATOLOGY AND ONCOLOGY [place], [place] [id number] 11/01/2023 9:30 AM EDT Infusion Hematology Oncology at [address] [phone] 12/24/2023 1:00 PM EDT TH Visit (TeleHealth) Radiation Oncology at [address] [phone] Ping Moore PA [facility] [place] [address] documented as of this encounter Visit Diagnoses Diagnosis Malignant neoplasm of head of pancreas Pancreatic insufficiency Other specified disease of pancreas documented in this encounter Care Teams Deskidding Machine Operator Relationship Specialty Start Date End Date Tristen Hunter MD [address] [place] [address] [place] [address] PCP - General Family Medicine 07/04/23 documented as of this encounter
--- OUTSIDE RECORDS SUMMARY | 2023-10-06 00:37 | XMS_ITS | Encounter Summary ---
Author Organization [facility] [address] Care Team Providers Care Account Collector Name Role Phone Tristen Hunter MD Primary Care Provider [phone] Encounter Details Date Type Department Care Team (Latest Contact Info) Description 07/12/2023 Travel Social History Tobacco Use Types Packs/Day Years Used Date Smoking Tobacco: Former Cigarettes 4 30 1 963 1992 Smokeless Tobacco: Never Alcohol Use Standard Drinks/Week Comments Yes 7 (1 standard drink = 0.6 oz pur e alcohol) [facility] Utilities Answer Date Recorded In [...] place to sleep or slept in a group home (including now)? No 06/04/2023 IPV Inpatient Questions [...] AM EDT Tech [place] [address] Giacomo Queen 10/11/2023 11:15 AM EDT Office [place] [address] Basim Barr MD [facility] [place] [address] 10/18/2023 9:00 AM EDT Office Visit Hematology/Oncology at [address] [phone] Cl Hess MD [facility] [place] [address] Yessi Renee APRN [address] [place] [address] DR HEMATOLOGY AND ONCOLOGY [place], [place] [phone] 10/18/2023 9:30 AM EDT Infusion Hematology Oncology at [address] [phone] 10/24/2023 9:30 AM EDT Scheduled View Only Radiation Oncology at [address] [phone] [facility] 10/24/2023 10:00 AM EDT Office Visit Radiation Oncology at [address] [phone] Bigg Peters MD [address] [place] [address] DR RADIATION ONCOLOGY [place], [place] [id number] 11/01/2023 9:00 AM EDT Office Visit Hematology/Oncology at [address] [phone] Cl Hess MD [facility] [place] [address] Yessi Renee APRN [address] [place] [address] DR HEMATOLOGY AND ONCOLOGY [place], [place] [id number] 11/01/2023 9:30 AM EDT Infusion Hematology Oncology at [address] [phone] 12/24/2023 1:00 PM EDT TH Visit (TeleHealth) Radiation Oncology at [address] [phone] Ping Moore PA [facility] DR [place] [address] documented as of this encounter Visit Diagnoses Not on filedocumented in this encounter Care Teams Account Collector Relationship Specialty Start Date End Date Tristen Hunter MD [address] [place] [address] [place] [id number] PCP - General Family Medicine 07/04/23 documented as of this encounter
--- OUTSIDE RECORDS SUMMARY | 2023-10-06 00:37 | XMS_ITS | Encounter Summary ---
Author [place] [address] Care Team Providers Care Molding Supervisor Name Role Phone Tristen Hunter MD Primary Care Provider [phone] Encounter Details Date Type Department Care Team (Latest Contact Info) Description 09/13/2023 Specialty [place] [phone] Casandra Walton, [facility] Started Refill Coordination - Manual (lipase/protease/amyl ase) for Enzyme Social History Tobacco Use Types Packs/Day Years Used Date Smoking Tobacco: Former Cigarettes 4 30 1 963 - 1992 Smokeless Tobacco: Never Alcohol Use Standard Drinks/Week Comments Yes 7 (1 standard drink = 0.6 oz pur e alcohol) [facility] Utilities Answer Date Recorded In the past 12 months has [facility] [employer], gas, oil, or water [employer] threatened to shut off services in [...] place to sleep or slept in a fdc (including now)? No 06/04/2023 DH IPV Inpatient [...] as of this encounter Progress Notes * Casandra Walton RPH - 09/13/2023 1:40 PM EDT error documented in this encounter Plan of Treatment Upcoming Encounters Date Type Department Care Team (Late st Contact Info) Description 10/11/2023 10:00 AM EDT Tech Visit [place] [address] Giacomo Queen 10/11/2023 11:15 AM EDT Office [place] [phone] Basim Barr MD [facility] [place] [address] 10/18/2023 9:00 AM EDT Office Visit Hematology/Oncology at [address] [phone] Cl Hess MD [facility] [place] [address] Yessi Renee [address] HEMATOLOGY AND ONCOLOGY [place], [place] [phone] 10/18/2023 9:30 AM EDT Infusion Hematology Oncology at [address] [phone] 10/24/2023 9:30 AM EDT Scheduled View Only Radiation Oncology at [address] [phone] Rad , [facility] 10/24/2023 10:00 AM EDT Office Visit Radiation Oncology at [address] [phone] Bigg Peters MD [address] [place] [address] DR RADIATION ONCOLOGY [place], [place] [phone] 11/01/2023 9:00 AM EDT Office Visit Hematology/Oncology at [address] [phone] Cl Hess MD [facility] [place] [address] Yessi Renee, [address] HEMATOLOGY AND ONCOLOGY [place], [place] [address] 11/01/2023 9:30 AM EDT Infusion Hematology Oncology at [address] [phone] 12/24/2023 1:00 PM EDT TH Visit (TeleHealth) Radiation Oncology at [address] [phone] Ping Moore PA [facility] DR HEMATOLOGY [place] [address] documented as of this encounter Visit Diagnoses Not on filedocumented in this encounter Care Teams Molding Supervisor Relationship Specialty Start Date End Date Tristen Hunter MD [address] [place] [address] [place] [address] PCP - General Family Medicine 07/04/23 documented as of this encounter
--- OUTSIDE RECORDS SUMMARY | 2023-10-06 00:37 | XMS_ITS | Encounter Summary ---
Author Organization [facility] [place] [address] Care Team Providers Care Systems Software Developer Name Role Phone Tristen Hunter MD Primary Care Provider [phone] Encounter Details Date Type Department Care Team (Late st Contact Info) Description 08/23/2023 10:00 AM EDT Office Visit Hematology/Oncology at [address] [phone] [facility] [place] [address] Malignant neoplasm of prostate Social History Tobacco Use Types Packs/Day Years Used Date Smoking Tobacco: Former Cigarettes 4 30 1 - 1992 Smokeless Tobacco: Never Alcohol Use Standard Drinks/Week Comments Yes 7 (1 standard drink = 0.6 oz pur e alcohol) [facility] Utilities Answer Date Recorded In the past 12 months has [employer], gas, oil, or water [employer] threatened to shut off services in your [...] Progress Notes * Lupe Velasquez, RD - 08/23/2023 10:00 AM EDT Nutrition Note Spoke with Wero in infusion today. Patient is starting cycle 4 of mFolfirinox for pancreatic cancer. Patient met with Dr. Balbuena, who felt tumor was resectable on 06/25/23. Patient reports his appetite and PO intake have been good. Weight has been trending up; he has re-gained 13# in the past 6 weeks (07/04-08/22). Patient has IDDM and takes both long and short acting insulin. BG was 260 mg/dl on labs today. I looked at his Dexcom CGM today which shows average BG of 343 mg/dl for the past week. Dex as premed was held today. Reviewed pancreatic enzyme insufficiency symptoms again today. Patient takes Creon 24: 2 per meal and one per snack. He reports his BM's are fine, but does have a lot of malodorous gas that he sayseven makes me want to leave the room. Patient is legally blind, so may not be able to assess color and consistency of his BM's. Wt Readings from Last 10 Encounters: 08/23/23 85.7 kg (189 lb) 08/09/23 85.1 kg (187 lb 9.6 oz) 07/26/23 83.7 kg (184 lb 9.6 oz) 07/12/23 82.5 kg (181 lb 12.8 oz) 07/05/23 79.8 kg (176 lb) 06/07/23 83 kg (183 lb) 07/31/22 103.9 kg (229 lb) 09/21/21 106.3 kg (234 lb 6.4 oz) 08/31/21 106.2 kg (234 lb 3.2 oz) 08/24/21 106.1 kg (234 lb) BMI 26.37 Up 1.5# in past two weeks 08/08-08/22 13# gain in past 6 weeks 07/04-08/22 7# loss in one month 06/06-07/04 (3.9% body weight) - not significant 44# (23.2% body weight) loss over past year 07/31/22-07/05/23 Lost 85# total per patient Diet: Breakfast: corned beef hash, 2 eggs today. Patient prepares his own breakfast. His brother lives with him and makes the other two meals of theday. He loves sweets but his trying to curb his intake of these (ex: 2 oreos). He has been avoiding toast lately to help with glycemic control. Drinks: a lot of water, occasional alcohol Medications: Creon 24 (2 with meals and 1 with snacks), long acting insulin 2x/day (25 units), SS insulin, zofran prn, compazine prn, imodium, chlorthalidone, omeprazole, tamsulosin, omega 3, amlodipine, carvedilol, lisinopril, folic acid, imdur, lipitor, aspirin Labs on 08/21: Na 144, K 3.5, AlkPhos 141, AST 17, ALT 39, BUN 19, BG 260H, Alb 3.3, Tbili 0.8, WBC 3.8, H/H 10.5/33.0L Nutrition Problem: Involuntary weight loss and altered GI function related to pancreatic cancer as evidenced by PERT (Creon 24: 2 per meal and one per snack) and 44# (23.2% body weight) loss over past year 07/31/22-07/05/23 Improved weight (13# re-gain in past 6 weeks) but does mention gas Recommendations: Continue with adequate intake of meals and snacks, though with attention to consistent carbohydrateintake and limiting added sugars due to average BG in mid-300's per patient's CGM. Creon 24: currently dosing 2 per meal and 1 per snack. He mentioned bothersome malodorous gas today. Suggested increasing to 3 per meal and 1-2 per snack. Will continue to follow. I will not be in clinic when he returns on 09/05. documented in this encounter Plan of Treatment Upcoming Encounters Date Type Department Care Team (Late st Contact Info) Description 10/11/2023 10:00 AM EDT Tech [place] [address] Giacomo Queen 10/11/2023 11:15 AM EDT Office [place] [address] Basim Barr MD [facility] [place] [address] 10/18/2023 9:00 AM EDT Office Visit Hematology/Oncology at [address] [phone] Cl Hess MD [facility] [place] [address] Yessi Renee APRN [address] [place] [address] DR HEMATOLOGY AND ONCOLOGY [place], [place] [address] 10/18/2023 9:30 AM EDT Infusion Hematology Oncology at [address] [phone] 10/24/2023 9:30 AM EDT Scheduled View Only Radiation Oncology at [address] [phone] [facility]agne 10/24/2023 10:00 AM EDT Office Visit Radiation Oncology at [address] [phone] Bigg Peters MD [address] [place] [address] DR RADIATION ONCOLOGY [place], [place] [id number] 11/01/2023 9:00 AM EDT Office Visit Hematology/Oncology at [address] [phone] Cl Hess MD [facility] [place] [address] Yessi Renee APRN [address] [place] [address] DR HEMATOLOGY AND ONCOLOGY [place], [place] [id number] 11/01/2023 9:30 AM EDT Infusion Hematology Oncology at [address] [phone] 12/24/2023 1:00 PM EDT TH Visit (TeleHealth) Radiation Oncology at [address] [phone] Ping Moore PA [facility] DR [place] [address] documented as of this encounter Visit Diagnoses Diagnosis Malignant neoplasm of prostate documented in this encounter Care Teams Systems Software Developer Relationship Specialty Start Date End Date Tristen Hunter MD [address] [place] [address] [place] [address] PCP - General Family Medicine 07/04/23 documented as of this encounter
--- OUTSIDE RECORDS SUMMARY | 2023-10-06 00:37 | XMS_ITS | Encounter Summary ---
Author Organization [facility] [place] [address] Care Team Providers Care Pc Installation Engineer Name Role Phone Tristen Hunter MD Primary Care Provider [phone] Encounter Details Date Type Department Care Team (Latest Contact Info) Description 09/06/2023 Travel Social History Tobacco Use Types Packs/Day Years Used Date Smoking Tobacco: Former Cigarettes 4 30 1 963 1992 Smokeless Tobacco: Never Alcohol Use Standard Drinks/Week Comments Yes 7 (1 standard drink = 0.6 oz pur e alcohol) [facility] Utilities Answer Date Recorded [...] place to sleep or slept in a fpc (including now)? No 06/04/2023 IPV Inpatient Questions [...] AM EDT Tech [place] [address] Giacomo Queen 10/11/2023 11:15 AM EDT Office [place] [address] Basim Barr MD [facility] [place] [address] 10/18/2023 9:00 AM EDT Office Visit Hematology/Oncology at [address] [phone] Cl Hess MD [facility] [place] [address] Yessi Renee APRN [address] [place] [address] DR HEMATOLOGY AND ONCOLOGY [place], [place] [id number] 10/18/2023 9:30 AM EDT Infusion Hematology Oncology at [address] [phone] 10/24/2023 9:30 AM EDT Scheduled View Only Radiation Oncology at [address] [phone] St La [facility] Champagne 10/24/2023 10:00 AM EDT Office Visit Radiation Oncology at [address] [phone] Bigg Peters MD [address] [place] [address] DR RADIATION ONCOLOGY [place], [place] [id number] 11/01/2023 9:00 AM EDT Office Visit Hematology/Oncology at [address] [phone] Cl Hess MD [facility] [place] [address] Yessi Renee APRN [address] [place] [address] DR HEMATOLOGY AND ONCOLOGY [place], [place] [id number] 11/01/2023 9:30 AM EDT Infusion Hematology Oncology at [address] [phone] 12/24/2023 1:00 PM EDT TH Visit (TeleHealth) Radiation Oncology at [address] [phone] Ping Moore PA [facility] DR [place] [address] documented as of this encounter Visit Diagnoses Not on filedocumented in this encounter Care Teams Pc Installation Engineer Relationship Specialty Start Date End Date Tristen Hunter MD [address] [place] [address] [place] [address] PCP - General Family Medicine 07/04/23 documented as of this encounter
--- OUTSIDE RECORDS SUMMARY | 2023-10-06 00:37 | XMS_ITS | Encounter Summary ---
[place] [address] Care Team Providers Care Boring Machine Set Up Operator Jig Name Role Phone Tristen Hunter MD Primary Care Provider [phone] Encounter Details Date Type Department Care Team (Latest Contact Info) Description 07/24/2023 Specialty [place] [phone] Slim De La Cruz, [facility] One Time Clinical Outreach - Manual (lipase/protease/nargis mini) for Enzyme Social History Tobacco Use Types Packs/Day Years Used Date Smoking Tobacco: Former Cigarettes 4 30 1 963 - 1992 Smokeless Tobacco: Never Alcohol Use Standard Drinks/Week Comments Yes 7 (1 standard drink = 0.6 oz pur e alcohol) [facility] Utilities Answer Date Recorded In the past 12 months has e [employer], gas, oil, or water [employer] threatened to shut off services in [...] in a fdc (including now)? No 06/04/2023 IPV Inpatient Questions [...] * Slim De La Cruz RPH - 07/24/2023 12:03 PM EDT Please see NS done on 07/23 for complete documentation of Creon NS. documented in this encounter Plan of Treatment Upcoming Encounters Date Type Department Care Team (Late st Contact Info) Description 10/11/2023 10:00 AM EDT Tech [place] [phone] Giacomo Queen 10/11/2023 11:15 AM EDT Office [place] [phone] Basim Barr MD [facility] [place] [address] 10/18/2023 9:00 AM EDT Office Visit Hematology/Oncology at [address] [phone] Cl Hess MD [facility] [place] [address] Yessi Renee [address] HEMATOLOGY AND ONCOLOGY [place], [place] [id number] 10/18/2023 9:30 AM EDT Infusion Hematology Oncology at [address] [phone] 10/24/2023 9:30 AM EDT Scheduled View Only Radiation Oncology at [address] [phone] Rad Nurse, [facility] 10/24/2023 10:00 AM EDT Office Visit Radiation Oncology at [address] [phone] Bigg Peters MD [address] [place] [address] DR RADIATION ONCOLOGY [place], [place] [id number] 11/01/2023 9:00 AM EDT Office Visit Hematology/Oncology at [address] [phone] Cl Hess MD [facility] [place] [address] Yessi Renee [address] HEMATOLOGY AND ONCOLOGY [place], [place] [address] 11/01/2023 9:30 AM EDT Infusion Hematology Oncology at [address] [phone] 12/24/2023 1:00 PM EDT TH Visit (TeleHealth) Radiation Oncology at [address] [phone] Ping Moore PA [facility] DR HEMATOLOGY [place] [address] documented as of this encounter Visit Diagnoses Diagnosis Malignant neoplasm of head of pancreas documented in this encounter Care Teams Boring Machine Set Up Operator Jig Relationship Specialty Start Date End Date Tristen Hunter MD [address] [place] [address] [place] [address] PCP - General Family Medicine 07/04/23 documented as of this encounter
--- OUTSIDE RECORDS SUMMARY | 2023-10-06 00:37 | XMS_ITS | Encounter Summary ---
Author Organization [facility] [place] [address] Care Team Providers Care Rn X Ray Name Role Phone Tristen Hunter MD Primary Care Provider [phone] Encounter Details Date Type Department Care Team (Latest Contact Info) Description 07/26/2023 9:00 AM EDT Clinical Support Hematology/Oncology at [address] [phone] [facility] DR HEMATOLOGY [place] [address] Malignant neoplasm of prostate Social History Tobacco Use Types Packs/Day Years Used Date Smoking Tobacco: Former Cigarettes 4 30 1 1992 Smokeless Tobacco: Never Alcohol Use Standard Drinks/Week Comments Yes 7 (1 standard drink = 0.6 oz pur e alcohol) [facility] Utilities Answer Date Recorded In the past 12 months has [employer], gas, oil, or water [employer] threatened to shut off services in your [...] in a retirement (including now)? No 06/04/2023 DH IPV Inpatient [...] as of this encounter Progress Notes * Eva Andrade E, RD - 07/26/2023 9:00 AM EDT [facility] Initial Assessment Patient Name: Wero Sadler Diagnosis: Pancreatic Cancer, T3 (per EUS report), N0 M0 Assessment: HPI Patient Active Problem List Diagnosis Code Colorectal [...] dysfunction/retention with risk of stretch injury N31.9 Malignant neoplasm of head of pancreas C25.0 Medications: Creon 24 (2 with meals and 1 with snacks), long acting insulin 2x/day (25 units), SS insulin, zofran prn, compazine prn, imodium, chlorthalidone, omeprazole, tamsulosin, omega 3, amlodipine, carvedilol, lisinopril, folic acid, imdur, lipitor, aspirin Labs on 07/25: H/H 10.8/34.2, platelets 179,000, BUN/Creat 18/0.75, BG 414, AlkPhos 160, Alb 3.2, Lytes and LFTs o/w unremarkable Wt Readings from Last 10 Encounters: 07/26/23 83.7 kg (184 lb 9.6 oz) 07/12/23 82.5 kg (181 lb 12.8 oz) 07/05/23 79.8 kg (176 lb) 06/07/23 83 kg (183 lb) 07/31/22 103.9 kg (229 lb) 09/21/21 106.3 kg (234 lb 6.4 oz) 08/31/21 106.2 kg (234 lb 3.2 oz) 08/24/21 106.1 kg (234 lb) 08/17/21 104 kg (229 lb 3.2 oz) 08/15/21 104.3 kg (230 lb) BMI 25.76 8# e-gain in past three weeks 07/04-07/25 7# loss in one month 06/06-07/04 (3.9% body weight) - not significant 44# (23.2% body weight) loss over past year 07/31/22-07/05/23 PMH: Blind, colon cancer (s/p resection in 2008 and adjuvant chemotherapy with fluorouracil), DM, hypercholesterolemia, HTN, prostate cancer (s/p ADT and RT), ASCVD s/p 3x CABG, PVDz s/p carotid endarterectomy, prior CVA, DM and others. Treatment: Began treatment with mFolfirinox, s/p 1 cycle on 07/12/23. ERCP with stent placement. Tolerated first cycle well. 06/07/2023 07/12/2023 Nutrition Screen Total MST Score 0 0 Patient is blind. No nausea/vomiting No diarrhea. Hyperglycemia: Patient with IDDM. BG is 414 mg/dl on labs today. He has a Dexcom 7 CGM but brother has to read the values in order to dose SS insulin. He will need to get a different phone compatiblewith his Dexcom 7 CGM in order to have the BG value spoken aloud to him. He declined dexamethasone for nausea with his pre-meds today. 06/04/2023 Food Insecurity Screening Within the past 12 months, you worried that your food would run out before you got the money to buymore. Never true Within the past 12 months, the food you bought just didn't last and you didn't have money to get more. Never true Diet History Spoke with Mauri in infusion today. Patient came alone to clinic, used [employer] for a ride. He lives in [place], [place] with his brother. His brother does most of the cooking at home; patient sometimes fixes himself breakfast. He is blind. 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 He has IDDM, butdoes not strictly limit carbs in his diet. He says today I love cookies. BG was usually 200-220 before starting treatment He is dosing Creon 24: 2 per meal and 1 with snack. He is good about bringing Creon with him when he is out of the house. Breakfast today: 2 eggs, cheese, bread, pineapple juice, 2 cups coffee Lunch yesterday: sandwich Dinner yesterday: Goolash, potatoes and sausage Snacking: peanuts, PB pretzels Drinks: a lot of water, 2 Beers/week, 2 Boost/day but trying to switch to Diabetic version. Nutrition Problem: Involuntary weight loss and altered GI function related to pancreatic cancer as evidenced by PERT (Creon 24: 2 per meal and one per snack) and 44# (23.2% body weight) loss over past year 07/31/22-07/05/23 Estimated needs based on 83.7 [id number] kcals (25-30 kcal/kg) 109-126 g protein (1.3-1.5 g/kg) 1 ml/kcal fluids Nutrition Intervention: Encouraged adequate intake with regular meals/snacks to maintain weight during treatment. Weight isup 8# in past 3 weeks following 44# / 23% in one year. Creon 24: dosing 2 per meal and 1 per snack. Reviewed EPI symptoms to monitor for today. Reviewed carbohydrate foods to work on limiting/spreading throughout the day given BG 414 mg/dl today. Encouraged limiting sweets/added sugars in particular. Gave patient list of phones compatible with Dexcom 7 CGM. It would be helpful to have a phone that is capable of reading his BG value aloud to him in order to accurately dose insulin. Provided samples of Glucerna to try. Would be good to switch to this instead of Boost for lower carb content. One bottle per day seems sufficient unless PO intake/weight starts declining again. Monitoring and Evaluation: Will follow up with patient on 08/22 to re-evaluate. I have provided him with my card and contact information should he have any questions in the meantime. Thank you for this consult. Lupe Velasquez RD documented in this encounter Plan of Treatment Upcoming Encounters Date Type Department Care Team (Late st Contact Info) Description 10/11/2023 10:00 AM EDT Tech Visit [place] [address] Giacomo Queen 10/11/2023 11:15 AM EDT Office [place] [phone] Basim Barr MD [facility] [place] [address] 10/18/2023 9:00 AM EDT Office Visit Hematology/Oncology at [address] [phone] Cl Hess MD [facility] [place] [address] Yessi Renee [address] HEMATOLOGY AND ONCOLOGY [place], [place] [phone] 10/18/2023 9:30 AM EDT Infusion Hematology Oncology at [address] [phone] 10/24/2023 9:30 AM EDT Scheduled View Only Radiation Oncology at [address] [phone] [facility]agne 10/24/2023 10:00 AM EDT Office Visit Radiation Oncology at [address] [phone] Bigg Peters MD [address] [place] [address] DR RADIATION ONCOLOGY [place], [place] [address] [phone] 11/01/2023 9:00 AM EDT Office Visit Hematology/Oncology at [address] [phone] Cl Hess MD [facility] [place] [address] Yessi Renee [address] HEMATOLOGY AND ONCOLOGY [place], [place] [address] 11/01/2023 9:30 AM EDT Infusion Hematology Oncology at [address] [phone] 12/24/2023 1:00 PM EDT TH Visit (TeleHealth) Radiation Oncology at [address] [phone] Ping Moore PA [facility] HEMATOLOGY [place] [address] documented as of this encounter Visit Diagnoses Diagnosis Malignant neoplasm of prostate documented in this encounter Care Teams Rn X Ray Relationship Specialty Start Date End Date Tristen Hunter MD [address] [place] [address] [place] [address] PCP - General Family Medicine 07/04/23 documented as of this encounter
--- OUTSIDE RECORDS SUMMARY | 2023-10-06 00:37 | XMS_ITS | Encounter Summary ---
Author Organization [facility] Address [facility] [place] [address] Care Team Providers Care Cafeteria Cook Name Role Phone Tristen Hunter MD Primary Care Provider [phone] Encounter Details Date Type Department Care Team (Late st Contact Info) Description 07/25/2023 Orders Only Hematology [place] [address] Cl Hess MD [facility] [address] Social History Tobacco Use Types Packs/Day Years Used Date Smoking Tobacco: Former Cigarettes 30 1 963 - 1992 Smokeless Tobacco: Never Alcohol Use Standard Drinks/Week Comments Yes 7 (1 standard drink = 0.6 oz pur e alcohol) [facility] Utilities Answer Date Recorded In the past 12 months has [employer], gas, oil, or water [employer] threatened to shut off services in your [...] AM EDT Tech [place] [address] Giacomo Queen 10/11/2023 11:15 AM EDT Office [place] [address] Basim Barr MD [facility] [place] [address] 10/18/2023 9:00 AM EDT Office Visit Hematology/Oncology at [address] [phone] Cl Hess MD [facility] [place] [address] Yessi Renee [address] HEMATOLOGY AND ONCOLOGY [place], [place] [phone] 10/18/2023 9:30 AM EDT Infusion Hematology Oncology at [address] [phone] 10/24/2023 9:30 AM EDT Scheduled View Only Radiation Oncology at [address] [phone] St La N[facility] Champagne 10/24/2023 10:00 AM EDT Office Visit Radiation Oncology at [address] [phone] Bigg Peters MD [address] [place] [address] DR RADIATION ONCOLOGY [place], [place] [id number] 11/01/2023 9:00 AM EDT Office Visit Hematology/Oncology at [address] [phone] Cl Hess MD [facility] [place] [address] [address] HEMATOLOGY AND ONCOLOGY [place], [place] [id number] 11/01/2023 9:30 AM EDT Infusion Hematology Oncology at [address] [phone] 12/24/2023 1:00 PM EDT TH Visit (TeleHealth) Radiation Oncology at [address] [phone] Ping Moore PA [facility] [place] [address] documented as of this encounter Visit Diagnoses Not on filedocumented in this encounter Care Teams Cafeteria Cook Relationship Specialty Start Date End Date Tristen Hunter MD [address] [place] [address] [place] [address] PCP - General Family Medicine 07/04/23 documented as of this encounter
--- OUTSIDE RECORDS SUMMARY | 2023-10-06 00:37 | XMS_ITS | Encounter Summary ---
Author Organization [facility] Address [facility] [place] [address] Care Team Providers Care Researcher Name Role Phone Tristen Hunter MD Primary Care Provider [phone] Reason for Visit * Reason Comments Chemotherapy Cycle 3, Day 1 - Fol firinox * Treatment/Therapy Plan Authorization (Routine) - Authorized Specialty Diagnoses / Procedures Referred By Marques t Referred To Contact Diagnoses Malignant neoplasm of prostate Cl Hess MD [facility] [place] [address] Stj Hem Onc Infusion [address] [place] [phone] Referral ID Status Reason Start Date Expiration Date V isits Requested Visits Authorized [id number] Authorized 07/11/2023 07/10/2024 99 99 Encounter Details Date Type Department Care Team (Late st Contact Info) Description 08/09/2023 9:00 AM EDT Infusion Hematology Oncology at [address] [phone] Malignant neoplasm of prostate; Malignant neoplasm of head of pancreas Social History Tobacco Use Types Packs/Day Years Used Date Smoking Tobacco: Former Cigarettes 4 30 1 - 1992 Smokeless Tobacco: Never Alcohol Use Standard Drinks/Week Comments Yes 7 (1 standard drink = 0.6 oz pur e alcohol) [facility] Utilities Answer Date Recorded In the [...] health care facility (including now)? No 06/04/2023 DH IPV Inpatient [...] as of this encounter Progress Notes * Michela Enciso RN - 08/09/2023 9:00 AM EDT INFUSION THERAPY ADMINISTRATION NOTES DIAGNOSIS: Pancreatic cancer CYCLE #: Cycle 3, Day 1 - Folfirinox REASON FOR VISIT: To receive planned chemotherapy. SUBJECTIVE: Wero offers no complaints. OBJECTIVE: Seen by provider. Ready to treat. Glucose much improved but he will decline oral/IV dexamethasone. Provider aware. LAB DATA: 08/08/23 - WBC - 4.0, H/H - 11.2/34.4, Plt Ct - 198, ANC - 2.4, Lytes wnl, BUN/Cr - 20/0.65, glucose 118. IV ACCESS: Port accessed without difficulty. Flushes readily with brisk blood return. Pre administration: Chemotherapy orders independently verified for drug name, route, and dosage per patient's height, weight and BSA by Michela Enciso, AYE and Staff Pharmacist(s). REACTIONS (DESCRIPTION, TIME, INTERVENTION AND EFFECTIVENESS) none ASSESSMENT: CADD pump provided by [employer], pump was double checked by Michela Enciso, RN RN and Koko Funk RN prior to connection. Pump was checked 15min after connection and 0.9 cc was infused. Patient was awake, alert and tolerated treatment well. Disconnect at [facility] at 1200 on Saturday08/11/23. Called and spoke to Infusion staff. PLAN Patient is aware to call clinic with any questions and concerns M-F 8am to 5pm and to call [employer] with any questions and concerns in the off hours. Return to clinic in two weeks. documented in this encounter Plan of Treatment Upcoming Encounters Date Type Department Care Team (Late st Contact Info) Description 10/11/2023 10:00 AM EDT Tech [place] [address] Giacomo Queen 10/11/2023 11:15 AM EDT Office [place] [address] Basim Barr MD [facility] [place] [address] 10/18/2023 9:00 AM EDT Office Visit Hematology/Oncology at [address] [phone] Cl Hess MD [facility] [place] [address] Yessi Renee [address] HEMATOLOGY AND ONCOLOGY [place], [place] [id number] 10/18/2023 9:30 AM EDT Infusion Hematology Oncology at [address] [phone] 10/24/2023 9:30 AM EDT Scheduled View Only Radiation Oncology at [address] [phone] St La Nena Champagne 10/24/2023 10:00 AM EDT Office Visit Radiation Oncology at [address] [phone] Bigg Peters MD [address] [place] [address] DR RADIATION ONCOLOGY [place], [place] [phone] 11/01/2023 9:00 AM EDT Office Visit Hematology/Oncology at [address] [phone] Cl Hess MD [facility] [place] [address] Yessi Renee [address] HEMATOLOGY AND ONCOLOGY [place], [place] [id number] 11/01/2023 9:30 AM EDT Infusion Hematology Oncology at [address] [phone] 12/24/2023 1:00 PM EDT TH Visit (TeleHealth) Radiation Oncology at [address] [phone] Ping Moore PA [facility] DR HEMATOLOGY [place] [address] (work) documented as of this encounter Visit Diagnoses Diagnosis Malignant neoplasm of prostate Malignant neoplasm of head of pancreas documented in this encounter Administered Medications Inactive Administered Medications - up to 3 most recent administrations Medication Order MAR Action Action Date Dose Rate Site aprepitant (CINVANTI) injection Emulsion 130 mg 130 mg, Intravenous, Administer over 2 Minutes, ONCE, 1 dose, On Sat08/09/23 at 0915, Alternative administration of IV push over 2 minutes is a recommendation from the refinery operator visbreaking. Administer prior to chemotherapy., Routine Given 08/09/2023 9:20 AM EDT 130 mg atropine (0.1 mg/mL) injection 0.5 mg 0.5 mg, Intravenous, Administer over 1 Minutes, ONCE, 1 dose, On Sat08/09/23 at 0915, Administer prior to IRINOtecan, Routine Given 08/09/2023 12:05 PM EDT 0.5 mg fluorouraciL (AdruciL) in sodium chloride 0.9% 138 mL infusion (46 Hour - For Home Use) 4,800 mg 4,800 mg (2,400 mg/m2/dose ? 2 m2 Treatment Plan BSA from Recorded weight), Intravenous, ONCE, 1 dose, On Sat08/09/23 at 1345, Administer over 46 Hours, Warning Vesicant/Irritant Medication To be infused via an ambulatory infusion CADD Colon pump continuously IV at 3 mL/hr for 46 hours. Pump contains a 46 hour supply and provides a daily dose of 1,200 mg/m2/day = 2,400 mg/m2 IV over 46 hours. Given 08/09/2023 2:02 PM EDT 4,800 mg 3 mL/hr IRINOtecan (Camptosar) 200 mg in dextrose 5% 510 mL infusion 200 mg (rounded from 210 mg = 105 mg/m2/dose ? 2 m2 Treatment Plan BSA from Recorded weight), Intravenous, ONCE, 1 dose, On Sat08/09/23 at 1015, Administer over 90 Minutes, Warning Vesicant/Irritant Medication Administer 30 minutes after the start of the leucovorin. New Bag 08/09/2023 12:15 PM EDT 200 mg 340 mL/hr leucovorin (Wellcovorin) 350 mg in dextrose 5% 85 mL infusion 350 mg, Intravenous, ONCE, 1 dose, On Sat08/09/23 at 1015, Administer over 120 Minutes, Administer upon completion of OXALIplatin infusion. Do not administer at a rate faster than 160 milligrams/minute. New Bag 08/09/2023 11:12 AM EDT 350 mg 42.5 mL/hr OXALIplatin (Eloxatin) 136 mg in dextrose 5% 277.2 mL infusion 136 mg (68 mg/m2/dose ? 2 m2 Treatment Plan BSA from Recorded weight), Intravenous, ONCE, 1 dose, On Sat08/09/23 at 1015, Administer over 85 Minutes, Administer first. Compatible with dextrose-containing solution only. Warning Vesicant/Irritant Medication New Bag 08/09/2023 9:46 AM EDT 136 mg 195.7 mL/hr palonosetron (Aloxi) (0.05 mg/mL) injection 0.25 mg 0.25 mg, Intravenous, ONCE, 1 dose, On Sat08/09/23 at 0915, Administer over 30 seconds., Routine Given 08/09/2023 9:20 AM EDT 0.25 mg documented in this encounter Care Teams Researcher Relationship Specialty Start Date End Date Tristen Hunter MD [address] [place] [address] [place] [address] PCP - General Family Medicine 07/04/23 documented as of this encounter
--- OUTSIDE RECORDS SUMMARY | 2023-10-06 00:38 | XMS_ITS | Encounter Summary ---
[place] [address] Care Team Providers Care Turf Grower Name Role Phone Alo Carey Primary Care Provider [phone] Encounter Details Date Type Department Care Team (Latest Contact Info) Description 06/25/2023 2:45 PM EDT Laboratory Appointment Lab [address] [place] [phone] Malignant neoplasm of prostate; Malignant neoplasm of head of pancreas Social History Tobacco Use Types Packs/Day Years Used Date Smoking Tobacco: Former Cigarettes 4 30 1 963 - 1992 Smokeless Tobacco: Never Alcohol Use Standard Drinks/Week Comments Yes 7 (1 standard drink = 0.6 oz pur e alcohol) [facility] Utilities Answer Date Recorded In the past 12 months has e [employer], gas, oil, or water [employer] threatened to shut off services in your [...] in a snf (including now)? No 06/04/2023 Sex and Gender Information Value Date Recorded Sex Assigned at Not on file Gender Identity Not on file Sexual Orientation Not on file documented as of this encounter Plan of Treatment Upcoming Encounters Date Type Department Care Team (Late st Contact Info) Description 10/11/2023 10:00 AM EDT Tech [place] [phone] Giacomo Queen 10/11/2023 11:15 AM EDT Office Visit [place] [phone] Basim Barr MD [facility] [place] [address] 10/18/2023 9:00 AM EDT Office Visit Hematology/Oncology at [address] [phone] Cl Hess MD [facility] [place] [address] Yessi Renee APRN [address] [place] [address] DR HEMATOLOGY AND ONCOLOGY [place], [place] [phone] 10/18/2023 9:30 AM EDT Infusion Hematology Oncology at [address] [phone] 10/24/2023 9:30 AM EDT Scheduled View Only Radiation Oncology at [address] [phone] Rad NurseSt Deutsch 10/24/2023 10:00 AM EDT Office Visit Radiation Oncology at [address] [phone] Bigg Peters MD [address] [place] [address] DR RADIATION ONCOLOGY [place], [place] [address] 11/01/2023 9:00 AM EDT Office Visit Hematology/Oncology at [address] [phone] Cl Hess MD [facility] [place] [address] Yessi Renee APRN [address] [place] [address] DR HEMATOLOGY [place] [address] 11/01/2023 9:30 AM EDT Infusion Hematology Oncology at [address] [phone] 12/24/2023 1:00 PM EDT TH Visit (TeleHealth) Radiation Oncology at [address] [phone] Ping Moore PA [facility] DR HEMATOLOGY [place] [address] documented as of this encounter Procedures Procedure Name Priority Date/Time Associated Diagnosis Comments PGX ONCOLOGY Routine 06/25/2023 2:37 PM EDT Malignant neoplasm of head of pancreas HEMOGRAM Routine 06/25/2023 2:37 PM EDT Malignant neoplasm of head of pancreas DIFFERENTIAL, AUTOMATED Routine 06/25/2023 2:37 PM EDT Malignant neoplasm of head of pancreas CARBOHYDRATE ANTIGEN 19-9 Routine 06/25/2023 2:37 PM EDT Malignant neoplasm of head of pancreas CBC (WITH DIFF) Routine 06/25/2023 2:37 PM EDT Malignant neoplasm of head of pancreas TESTOSTERONE, TOTAL Routine 06/25/2023 2 :37 PM EDT Malignant neoplasm of prostate PSA (ULTRASENSITIVE) Routine 06/25/2023 2:37 PM EDT Malignant neoplasm of prostate COMPREHENSIVE METABOLIC PANEL Routine 06/25/2023 2:37 PM EDT Malignant neoplasm of head of pancreas documented in this encounter Results * (ABNORMAL) Differential, Automated (06/25/2023 2:37 PM EDT) Neutrophil % 80.7 % [facility] Neutrophil Absolute 6.46(H) 1.70 - 6.10 x10(3)/mc L [facility] Lymph % 10.8 % [facility] Lymphocytes Abs 0.9 0.9 - 3.2 x10(3)/mc L [facility] Monocyte % 8.0 % [facility] Monocyte Abs 0.6 0.3 - 0.9 x10(3)/mc L [facility] Eos % 0.1 % [facility] Eosinophils Abs 0.0 0.0 - 0.4 x10(3)/mc L [facility] Basophil % 0.2 % [facility] Baso Absolute 0.0 0.0 - 0.1 x10(3)/mc L [facility] Immature Gran % 0.20 % [facility] Comment: Immature granulocytes(IG's)percentage and absolute count will include metamyelocytes, myelocytes, and promyelocytes. Blood smears from CBCs yielding IG's will be scanned manually for concordance. If this scan disagrees with the automated IG or if promyelocytes are noted, a manual differential will be performed. Immature Gran Absolute 0.02 0.00 - 0.04 x10(3)/ L [facility] Blood 06/25/2023 2:37 PM EDT 06/25/2023 2:43 PM EDT Narrative Resulting Agency Comment Spec In Lab Cl Hess MD HEMATOLOGY ORDERABLE S [facility] [place] [address] * (ABNORMAL) Hemogram (06/25/2023 2:37 PM EDT) White Blood Cell 8.0 4.0 - 9.5 x10(3)/[facility] Red Blood Cell 3.77(L) 4.58 - 5.54 x10(6)/[facility] Hemoglobin 12.3(L) 13.7 - 16.5 g/dL [facility] Hematocrit 37.4(L) 40.5 - 48.5 % [facility] Mean Cell Volume 99.2(H) 82.9 - 93.1 fL [facility] Mean Cell Hemoglobin 32.6(H) 27.5 - 32.1 pg [facility] Mean Cell Hemoglobin Concentration 32.9 32.0 - 35.7 g/dL [facility] Platelet 188 145 - 357 x10(3)/[facility] RDW Standard Deviation 53.6(H) 36.0 - 45.0 [facility] RDW coefficient of variation 14.6(H) 11.4 - 13.8 % [facility] Mean Platelet Volume 10.3 7.6 - 12.9 [facility] NRBC% auto 0.0 % [facility] NRBC Absolute 0.000 0.000 - 0.000 x10(3)/ L [facility] Blood 06/25/2023 2:37 PM EDT 06/25/2023 2:43 PM EDT Narrative Resulting Agency Comment Spec In Lab Cl Hess MD HEMATOLOGY ORDERABLE S Performing Organization Address [facility] Co de Phone Number [facility] [place] [address] * PGx Oncology (06/25/2023 2:37 PM EDT) Blood VENOUS BLOOD SPECIMEN / Unknown 06/25/2023 2:37 PM EDT 06/26/2023 8:27 AM EDT Narrative Resulting Agency Comment Spec In Lab Cl Hess MD CHEMISTRY ORDERABLES Performing Organization Address [facility] Co de Phone Number [facility] [place] [address] * (ABNORMAL) Comprehensive metabolic panel (non-fasting) (06/25/2023 2:37 PM EDT) Glucose 410(H) 65 - 199 mg/dL [facility] Comment:Diabetes: >=200 mg/d L plus symptoms Blood Urea Nitrogen 19 10 - 20 mg/dL [facility] Creatinine 0.66(L) 0.80 - 1.50 mg/dL [facility] Sodium 135 135 - 145 mmol/L [facility] Potassium 4.0 3.5 - 5.0 mmol/L [facility] Comment: Please note: ??Patients with WBC >100,000 may have falsely elevated Potassium levels. ??For accurate Potassium quantification in these patients send serum separator tube (gold top) for subsequent determinations. ??Contact the Clinical Chemistry Laboratory if there are any questions. Chloride 96(L) 98 - 107 mmol/L [facility] Carbon Dioxide 25 22 - 31 mmol/L [facility] Anion Gap 14 5 - 15 mmol/L [facility] Calcium 9.3 8.5 - 10.5 mg/dL [facility] Protein, Total 6.4 6.1 - 8.0 g/dL [facility] Albumin 4.0 3.2 - 5.2 g/dL [facility] Aspartate Aminotransferase 122(H) 0 - 39 unit/L [facility] Alanine Aminotransferase 200(H) 0 - 55 unit/L [facility] Alkaline Phosphatase 303(H) 40 - 130 unit/L [facility] Bilirubin, Total 2.0(H) 0.2 - 1.3 mg/dL [facility] Est Glomerular Filtration Rate 98 >=60 mL/min/1. 73 m?? [facility] Comment: This patient's estimated GFR [...] In Lab Cl Hess MD CHEMISTRY ORDERABLES Performing Organization Address City/State/[facility] Co de Phone Number [facility] [place] [address] * (ABNORMAL) Carbohydrate Antigen 19-9 (06/25/2023 2:37 PM EDT) CA 19-9 390.0(H) <=35.0 u/ml [facility] Comment: This result was generated using a Danni Lita immunoassay. ??Results obtained from other methods or manufacturers cannot be used interchangeably with this method. Blood 06/25/2023 2:37 PM EDT 06/25/2023 2:43 PM EDT Narrative Resulting Agency Comment Spec In Lab Cl Hess MD CHEMISTRY ORDERABLES [facility] [place] [address] * PSA (Ultrasensitive) (06/25/2023 2:37 PM EDT) Pathologist [facility] Prostate Specific Antigen (Ultrasensitive) 0.09 0.00 - 4.00 ng/mL [facility] Comment: PLEASE NOTE: The above reference interval is intended for healthy males with an intact prostate. Values within this reference interval may indicate recurrence in men who have undergone radical prostatectomy. This result was generated using a Danni Lita immunoassay. ??Results obtained from other methods or manufacturers cannot be used interchangeably with this method. Blood 06/25/2023 2:37 PM EDT 06/25/2023 2:43 PM EDT Narrative Resulting Agency Comment Spec In Lab Bela Charles SPOOL FIXER CHEMISTRY ORDERABLES Performing Organization Address [facility] de Phone Number [facility] [place] [address] * Testosterone, total (06/25/2023 2:37 PM EDT) [facility] Testosterone 2.12 1.93 - 7.40 ng/mL [facility] Comment: Pediatric Reference Ranges: ? Males (7 - 18 years) ?Females (8 - 18 years) Lee Stage ?ng/ml ? ng/ml ? 1 ? <0.03 ? <0.03 to 0.06 ? 2 ? <0.03 to 4.32 ? <0.03 to 0.10 ? 3 ?0.65 to 7.78 ? <0.03 to 0.24 ? 4 ?1.80 to 7.63 ? <0.03 to 0.27 ? 5 ?1.88 to 8.82 ?0.05 to 0.38 Stated reference ranges derived from review of Danni Lita Testosterone II 01/2022, v2.0 Blood 06/25/2023 2:37 PM EDT 06/25/2023 2:43 PM EDT Narrative Resulting Agency Comment Spec In Lab Bela Charles SPOOL FIXER CHEMISTRY ORDERABLES Performing Organization Address City/State/[facility] Co de Phone Number [facility] [place] [address] documented in this encounter Visit Diagnoses Diagnosis Malignant neoplasm of prostate Malignant neoplasm of head of pancreas documented in this encounter Care Teams Turf Grower Relationship Specialty Start Date End Date Alo Carey DO [address] [place] [address] [place] [phone] PCP - General Internal Medicine 08/31/20 07/03/23 documented as of this encounter
--- OUTSIDE RECORDS SUMMARY | 2023-10-06 00:38 | XMS_ITS | Encounter Summary ---
Author Organization [facility] [place] [address] Care Team Providers Care Household Personal Assistant Name Role Phone Alo Carey Primary Care Provider [phone] Encounter Details Date Type Department Care Team (Late st Contact Info) Description 07/01/2023 Telephone [place] [phone] Larisa Wilkerson, RN Social History Tobacco Use Types Packs/Day Years [...] in a half-way (including now)? No 06/04/2023 Sex and Gender Information Value Date Recorded Sex Assigned at Not on file Gender Identity Not on file Sexual Orientation Not on file documented as of this encounter Miscellaneous Notes * Telephone Encounter - Larisa Wilkerson RN - 07/01/2023 1:05 PM EDT Per OR appointment scheduler Rocío, patient was asked to stop his Farxlga today for his upcoming surgery. documented in this encounter Plan of Treatment Upcoming Encounters Date Type Department Care Team (Late st Contact Info) Description 10/11/2023 10:00 AM EDT Tech [place] [address] Giacomo Queen 10/11/2023 11:15 AM EDT Office Visit [place] [address] Basim Barr MD [facility] [address] 10/18/2023 9:00 AM EDT Office Visit Hematology/Oncology at [address] [phone] Cl Hess MD [facility] [place] [address] [address] HEMATOLOGY AND ONCOLOGY [place], [place] [id number] 10/18/2023 9:30 AM EDT Infusion Hematology Oncology at [address] [phone] 10/24/2023 9:30 AM EDT Scheduled View Only Radiation Oncology at [address] [phone] Rad Nurse, [facility] 10/24/2023 10:00 AM EDT Office Visit Radiation Oncology at [address] [phone] Bigg Peters MD [address] [place] [address] DR RADIATION ONCOLOGY [place], [place] [id number] 11/01/2023 9:00 AM EDT Office Visit Hematology/Oncology at [address] [phone] Cl Hess MD [facility] [place] [address] [address] HEMATOLOGY AND ONCOLOGY [place], [place] [phone] 11/01/2023 9:30 AM EDT Infusion Hematology Oncology at [address] [phone] 12/24/2023 1:00 PM EDT TH Visit (TeleHealth) Radiation Oncology at [address] [phone] Ping Moore PA [facility] HEMATOLOGY [place] [address] documented as of this encounter Visit Diagnoses Not on filedocumented in this encounter Care Teams Household Personal Assistant Relationship Specialty Start Date End Date Alo Carey DO [address] [place] [address] [place] [phone] PCP - General Internal Medicine 08/31/20 07/03/23 documented as of this encounter
--- OUTSIDE RECORDS SUMMARY | 2023-10-06 00:38 | XMS_ITS | Encounter Summary ---
[place] [address] Care Team Providers Care Banjo Repair Person Name Role Phone YungAlo santiago Primary Care Provider [phone] Encounter Details Date Type Department Care Team (Late st Contact Info) Description 06/19/2023 External [place] [phone] Provider, Scanning Social History Tobacco Use Types Packs/Day Years Used Date Smoking Tobacco: Former Cigarettes 4 30 1 963 - 1992 Smokeless Tobacco: Never Alcohol Use Standard Drinks/Week Comments Yes 7 (1 standard drink = 0.6 oz pur e alcohol) [facility] Utilities Answer Date Recorded In the [...] health care facility (including now)? No 06/04/2023 Sex and Gender Information Value Date Recorded Sex Assigned at Not on file Gender Identity Not on file Sexual Orientation Not on file documented as of this encounter Plan of Treatment Upcoming Encounters Date Type Department Care Team (Late st Contact Info) Description 10/11/2023 10:00 AM EDT Tech [place] [address] Giacomo Queen 10/11/2023 11:15 AM EDT Office [place] [address] Basim Barr MD [facility] [place] [address] 10/18/2023 9:00 AM EDT Office Visit Hematology/Oncology at [address] [phone] Cl Hess MD [facility] [place] [address] Yessi Renee APRN [address] [place] [address] DR HEMATOLOGY AND ONCOLOGY [place], [place] [id number] 10/18/2023 9:30 AM EDT Infusion Hematology Oncology at [address] [phone] 10/24/2023 9:30 AM EDT Scheduled View Only Radiation Oncology at [address] [phone] Rad NurseSt Deutsch 10/24/2023 10:00 AM EDT Office Visit Radiation Oncology at [address] [phone] Bigg Peters MD [address] [place] [address] DR RADIATION ONCOLOGY [place], [place] [id number] 11/01/2023 9:00 AM EDT Office Visit Hematology/Oncology at [address] [phone] Cl Hess MD [facility] [place] [address] Yessi Renee APRN [address] [place] [address] DR HEMATOLOGY AND ONCOLOGY [place], [place] [id number] 11/01/2023 9:30 AM EDT Infusion Hematology Oncology at [address] [phone] 12/24/2023 1:00 PM EDT TH Visit (TeleHealth) Radiation Oncology at [address] [phone] Ping Moore PA [facility] HEMATOLOGY [place] [address] documented as of this encounter Procedures Procedure Name Priority Date/Time Associated Diagnosis Comments SURGICAL PATHOLOGY SCAN Routine 06/19/2023 documented in this encounter Results * Scan Doc: Surgical Pathology (06/19/2023) Historical Provider MD CADE MGR SCAN EX T ORDR/RSLT documented in this encounter Visit Diagnoses Not on filedocumented in this encounter Care Teams Banjo Repair Person Relationship Specialty Start Date End Date Alo Carey DO [address] [place] [address] [place] [address] PCP - General Internal Medicine 08/31/20 07/03/23 documented as of this encounter
--- OUTSIDE RECORDS SUMMARY | 2023-10-06 00:38 | XMS_ITS | Encounter Summary ---
Author Organization [facility] Address [facility] [place] [address] Care Team Providers Care Distribution Manager Name Role Phone Alo Carey Primary Care Provider [phone] Encounter Details Date Type Department Care Team (Latest Contact Info) Description 06/19/2023 8:45 AM EDT TH Visit (TeleHealth) [place]emat[place] [address] Cl Hess MD [facility] [place] [address] Malignant neoplasm of head of pancreas Social History Tobacco Use Types Packs/Day Years Used Date Smoking Tobacco: Former Cigarettes 4 30 1 - 1992 Smokeless Tobacco: Never Alcohol Use Standard Drinks/Week Comments Yes 7 (1 standard drink = 0.6 oz pur e alcohol) [facility] Utilities Answer Date Recorded In the past 12 months has e [employer], gas, oil, or water [employer] threatened to shut off services in your [...] a skilled nursing (including now)? No 06/04/2023 Sex and Gender Information Value Date Recorded Sex Assigned at Not on file Gender Identity Not on file Sexual Orientation Not on file documented as of this encounter Progress Notes * Cl Hess MD - 06/19/2023 8:45 AM EDT fSubjective Patient ID: Wero Sadler is 73 y.o. [...] periduodenal or perilesional adenopathy was appreciated Impression: [id number] pancreas head mass lesion with biliary and [...] metastatic disease/disease progression on interim staging evaluation. 2. Colorectal cancer S/p resection in 2008 [...] pancreatic cancer. The history is summarized above. Today's visit is a telephone encounter. Wero is accompanied by his significant other, Amy. 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 He says his vision is getting worse. He is eating well. He is taking creon with meals (2 with meals and 1 snacks) and feels this is helping him. He has no diarrhea now and is having fewerproblems with gassiness and bloating. He has neuropathy in his feet. He has some unsteadiness in the morning. 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 Constitutional: General: He is not in acute distress. HENT: Head: Normocephalic and atraumatic. Mouth/Throat: Pharynx: Oropharynx is clear. No oropharyngeal exudate. Eyes: General: No scleral icterus. Cardiovascular: Rate and Rhythm: Normal rate and regular rhythm. Pulmonary: Effort: Pulmonary effort is normal. No respiratory distress. Breath sounds: No wheezing or rales. Abdominal: General: There is no distension. Palpations: There is no mass. Tenderness: There is no abdominal tenderness. There is no guarding. Musculoskeletal: General: No swelling. Lymphadenopathy: Cervical: No cervical adenopathy. Upper Body: Right upper body: No supraclavicular adenopathy. Left upper body: No supraclavicular adenopathy. Skin: General: Skin is warm and dry. Findings: No rash. Neurological: General: No focal deficit present. Mental Status: He is alert. Coordination: Coordination normal. Psychiatric: Mood and Affect: Mood normal. CA 19-9 05/22/23 684.7 Assessment and Plan Wero Sadler [...] was recommended but not performed. While in [facility], he presented with chest pain and SOB [...] 06/07/23. Pathology was requested for review at [facility] and we also requested that images be [...] in the absence of cold, hypersensitivity reactions, angina/IL and others. He was given an informational handout regarding mFolfirinox. We reviewed his case at [facility] on 06/18/23. The Ct from 05/22/23 [...] progression or metastatic disease on restaging. He is scheduled to meet with Dr. Balbuena on 06/25/23. We will see if his assessment of resectability matches that from the Tumor Board discussion and what his assessment is of medical resectability. I will have stop at the lab that same day to have blood drawn for baseline labs, CA 19-9 and PGX tonia sure he doesn't have variant in DPYD or UGT1A1 that would put him at high risk of severe fluoropyrimidine related toxicity. This will need to be reviewed prior to beginning therapy. A referral was made to the Familial Cancer Program for discussion of genetic testing and he met with Tao Cardenas on 06/13/23. The plan was for a blood draw in [facility] once he starts his infusions. If genetic testing showed a BRCA or PALB2 mutation, he may be eligible for a clinical trial looking at theuse olaparib following completion of chemotherapy and surgery to see if this improves RFS. He will be followed also by our clinical farm or ranch animal caretaker, Lupe Velasquez. Plan: - Referral to Pancreatobiliary surgeon at [facility] - scheduled with Dr. Balbuena on 06/25/23. Diagnostic laparoscopy recommended per GITB. Anticipate that mediport will be placed the same day. - Labs at [facility], same day as surgery appt - to include PGX testing (patient aware and will stop at lab) - Referral to our Clinical Supervisor Parking Lot, Lupe Velasquez - Referral to Familial cancer Program - done on 06/13/23. Blood to be drawn for genetic testing in [facility] once treatment starts - f/u in [facility] for neoadjuvant therapy after laparoscopy. I provided care to the patient today via telephone call. The total time associated with this visit was 30 minutes. documented in this encounter Plan of Treatment Upcoming Encounters Date Type Department Care Team (Late st Contact Info) Description 10/11/2023 10:00 AM EDT [place] [phone] Giacomo Queen 10/11/2023 11:15 AM EDT Office [place] [phone] Basim Barr MD [facility] [place] [address] 10/18/2023 9:00 AM EDT Office Visit Hematology/Oncology at [address] [phone] Cl Hess MD [facility] [place] [address] Yess[address] Renee [address] HEMATOLOGY AND ONCOLOGY [place], [place] [phone] 10/18/2023 9:30 AM EDT Infusion Hematology Oncology at [address] [phone] 10/24/2023 9:30 AM EDT Scheduled View Only Radiation Oncology at [address] [phone] Rad , [facility] 10/24/2023 10:00 AM EDT Office Visit Radiation Oncology at [address] [phone] Bigg Peters MD [address] [place] [address] DR RADIATION ONCOLOGY [place], [place] [id number] 11/01/2023 9:00 AM EDT Office Visit Hematology/Oncology at [address] [phone] Cl Hess MD [facility] DR [place] [address] [address] Renee [address] HEMATOLOGY AND ONCOLOGY [place], [place] [address] 11/01/2023 9:30 AM EDT Infusion Hematology Oncology at [address] [phone] 12/24/2023 1:00 PM EDT TH Visit (TeleHealth) Radiation Oncology at [address] [phone] Ping Moore PA [facility] DR HEMATOLOGY [place] [address] Scheduled Orders Name Type Priority Associated Diagnoses Orde r Schedule CBC (with Diff) Lab Routine Malignant neoplasm of head of pancreas Every 2 Weeks for 12 Occurrences starting 06/19/2023 until 06/18/2024 Comprehensive metabolic panel (non-fasting) Lab Routine Malignant neoplasm of head of pancreas Every 2 Weeks for 12 Occurrences starting 06/19/2023 until 06/18/2024 Carbohydrate Antigen 19-9 Lab Routine Malignant neoplasm of head of pancreas Every 2 Weeks for 12 Occurrences starting 06/19/2023 until 06/18/2024 documented as of this encounter Results * (ABNORMAL) Carbohydrate Antigen 19-9 (06/25/2023 2:37 PM EDT) CA 19-9 390.0(H) <=35.0 u/ml [facility] Comment: This result was generated using a Danni Lita immunoassay. ??Results obtained from other methods or manufacturers cannot be used interchangeably with this method. Blood 06/25/2023 2:37 PM EDT 06/25/2023 2:43 PM EDT Narrative Resulting Agency Comment Spec In Lab Cl Hess MD CHEMISTRY ORDERABLES [facility] [place] [address] * (ABNORMAL) Comprehensive metabolic panel (non-fasting) (06/25/2023 2:37 PM EDT) Glucose 410(H) 65 - 199 mg/dL [facility] Comment:Diabetes: >=200 mg/d L plus symptoms Blood Urea Nitrogen 19 10 - 20 mg/dL [facility] Creatinine 0.66(L) 0.80 - 1.50 mg/dL [facility] Sodium 135 135 - 145 mmol/L [facility] Potassium 4.0 3.5 - 5.0 mmol/L [facility] Comment: Please note: ??Patients with WBC >100,000 may have falsely elevated Potassium levels. ??For accurate Potassium quantification in these patients send serum separator tube (gold top) for subsequent determinations. ??Contact the Clinical Chemistry Laboratory if there are any questions. Chloride 96(L) 98 - 107 mmol/L [facility] Carbon Dioxide 25 22 - 31 mmol/L [facility] Anion Gap 14 5 - 15 mmol/L [facility] Calcium 9.3 8.5 - 10.5 mg/dL [facility] Protein, Total 6.4 6.1 - 8.0 g/dL [facility] Albumin 4.0 3.2 - 5.2 g/dL [facility] Aspartate Aminotransferase 122(H) 0 - 39 unit/L [facility] Alanine Aminotransferase 200(H) 0 - 55 unit/L [facility] Alkaline Phosphatase 303(H) 40 - 130 unit/L [facility] Bilirubin, Total 2.0(H) 0.2 - 1.3 mg/dL [facility] Est Glomerular Filtration Rate 98 >=60 mL/min/1. 73 m?? [facility] Comment: This patient's estimated GFR [...] In Lab Cl Hess MD CHEMISTRY ORDERABLES [facility] [place] [address] * PGx Oncology (06/25/2023 2:37 PM EDT) Blood VENOUS BLOOD SPECIMEN / Unknown 06/25/2023 2:37 PM EDT 06/26/2023 8:27 AM EDT Narrative Resulting Agency Comment Spec In Lab Cl Hess MD CHEMISTRY ORDERABLES [facility] [place] [address] documented in this encounter Visit Diagnoses Diagnosis Malignant neoplasm of head of pancreas documented in this encounter Care Teams Distribution Manager Relationship Specialty Start Date End Date Alo Carey DO [address] [place] [address] [place] [address] PCP - General Internal Medicine 08/31/20 07/03/23 documented as of this encounter
--- OUTSIDE RECORDS SUMMARY | 2023-10-06 00:38 | XMS_ITS | Encounter Summary ---
Author Organization [facility] Address [facility] [place] [address] Care Team Providers Care Supply Chain Engineer Name Role Phone Tristen Hunter MD Primary Care Provider [phone] Encounter Details Date Type Department Care Team (Late st Contact Info) Description 07/11/2023 Orders Only Hematology [place] [address] Cl Hess MD [facility] [place] [address] Social History Tobacco Use Types Packs/Day Years Used Date Smoking Tobacco: Former Cigarettes 30 1 963 - 1992 Smokeless Tobacco: Never Alcohol Use Standard Drinks/Week Comments Yes 7 (1 standard drink = 0.6 oz pur e alcohol) [facility] Utilities Answer Date Recorded In the past 12 months has [employer], gas, oil, or water [employer] threatened to shut off services in your [...] place to sleep or slept in a correction (including now)? No 06/04/2023 DH IPV Inpatient [...] AM EDT Tech [place] [address] Giacomo Queen 10/11/2023 11:15 AM EDT Office [place] [address] Basim Barr MD [facility] VASCULAR [place] [address] 10/18/2023 9:00 AM EDT Office Visit Hematology/Oncology at [address] [phone] Cl Hess MD [facility] [place] [address] Yessi Renee [address] HEMATOLOGY AND ONCOLOGY [place], [place] [phone] 10/18/2023 9:30 AM EDT Infusion Hematology Oncology at [address] [phone] 10/24/2023 9:30 AM EDT Scheduled View Only Radiation Oncology at [address] [phone] St [facility]agne 10/24/2023 10:00 AM EDT Office Visit Radiation Oncology at [address] [phone] Bigg Peters MD [address] [place] [address] DR RADIATION ONCOLOGY [place], [place] [id number] 11/01/2023 9:00 AM EDT Office Visit Hematology/Oncology at [address] [phone] Cl Hess MD [facility] [place] [address] [address] HEMATOLOGY AND ONCOLOGY [place], [place] [phone] 11/01/2023 9:30 AM EDT Infusion Hematology Oncology at [address] [phone] 12/24/2023 1:00 PM EDT TH Visit (TeleHealth) Radiation Oncology at [address] [phone] Ping Moore PA [facility] HEMATOLOGY AND [place] [address] documented as of this encounter Visit Diagnoses Not on filedocumented in this encounter Care Teams Supply Chain Engineer Relationship Specialty Start Date End Date Tristen Hunter MD [address] [place] [address] [place] [address] PCP - General Family Medicine 07/04/23 documented as of this encounter
--- OUTSIDE RECORDS SUMMARY | 2023-10-06 00:38 | XMS_ITS | Encounter Summary ---
Author Organization [facility] [place] [address] Care Team Providers Care Needleworker Name Role Phone Alo Carey Primary Care Provider [phone] Encounter Details Date Type Department Care Team (Late st Contact Info) Description 06/28/2023 Telephone [place] [phone] Marga Thorpe Social History Tobacco Use Types Packs/Day Years Used Date Smoking Tobacco: Former Cigarettes 963 - 1992 Smokeless Tobacco: Never Alcohol Use Standard Drinks/Week Comments Yes 7 (1 standard drink = 0.6 oz pur e alcohol) [facility] Utilities Answer Date Recorded In the [...] in a residential (including now)? No 06/04/2023 Sex and Gender Information Value Date Recorded Sex Assigned at Not on file Gender Identity Not on file Sexual Orientation Not on file documented as of this encounter Miscellaneous Notes * Telephone Encounter - Marga Thorpe Adwoa - 06/28/2023 1:06 PM EDT Wero Sadler [id number] Diagnosis/Indication: Bets- 1-2 weeks EUS/ERCP patient with pancreatic cancer s/p ercp with stent in [facility]. Persistently elevated bilirubin. Please review patient chart to confirm if previous Endoscopy procedure was performed within system. If yes, take note of Anesthesia type used. If previous procedure found, and with MAC/propofol Anesthesia support was used, schedule this procedure with Anesthesia and skip the Anesthesia portion of questions. If not performed within system, not performed at all, or performed with IVCS, ask Anesthesia questions. SCHEDULING QUESTIONS (ask all patient these questions) Have you ever had a/an EUS & ERCP before? Yes: Date 2 months ago [place] If yes, did you have any problems with the procedure (such as waking up during the procedure, pain or difficulties afterwards, etc.)? No What type of sedation was used: Other: Unknown (ASK ONLY FOR COLONOSCOPY PROCEDURES) Are you aware, or have you ever been told that you had a poor prep or failed prep with a previous colonoscopy? No If yes, assign the Extended MiraLAX Prep (ASK ONLY FOR COLONOSCOPY PROCEDURES) Do you have an ongoing history of constipation? (E.g., hard stools, >2 days without a bowel movement, straining or difficulty passing stool) No If yes, assign the Extended MiraLAX Prep Do you take any blood thinners or have you been diagnosed with a bleeding disorder that increases your risk of bleeding with procedures? No Do you have a Pacemaker or Defibrillator device? If yes, send pool message to Cardiology with patient information and date or procedure. No Do you have diabetes? If yes, call PCP/managing provider to discuss use of prep and any questions or concerns related to. Yes: Controlled by diet or medication? Both If yes, assign the Extended MiraLAX Prep Do you take any iron supplements or vitamins that contain iron? No Do you have a preference regarding the gender of your provider? No ANESTHESIA QUESTIONS (YES to any question, please book with Anesthesia support) Have you ever been diagnosed with Pulmonary Hypertension and/or Congential Heart Disease? No Have you been diagnosed with A-Fib (atrial fibrillation) that is NOT being well controled with medications? No Have you ever had an allergic or adverse reaction to Fentanyl or Versed? No Have you had a problem with sedation or anesthesia? (Waking up during procedure, extreme confusion after, etc.) No Do you have a diagnosis of Obstructive Sleep Apnea that requires the use of a c- pap machine? No Do you use an oxygen tank at home? No Do you use a rescue inhaler more than twice per day? (COPD, severe asthma) No Do you experience breathing problems when you lay flat for a period of time? No Do you regularly take prescription opioid pain medications on a daily basis? (Includes oxycodone, Percocet, Suboxone, methadone, etc.) No If yes, assign the Extended MiraLAX Prep SCHEDULING CONFIRMATIONS: Please note any and all parts of your conversation with the patient here. We offer all new patients an opportunity to have an appointment with one of our associate care providers to learn more about your upcoming procedure, ask questions and get answers. These appointmentsare offered via telehealth. Would you be interested in scheduling this appointment? (Only ask if NEW referral patient; skip this question if [facility] GI provider ordered the procedure.) No Is there any other information or concerns you would like to us to share with your care team in relation to your upcoming scheduled procedure? No You must have a responsible green party who will drive you to your procedure, stay on campus for the entire duration of your procedure, and drive you home from your procedure. Who will likely be your tier truck driver for the procedure? *Please Verify the height and weight, and adjust if height and/or weight have changed* Estimated body mass index is 26.2 kg/m?? as calculated from the following: Height as of 06/07/23: 178 cm (5' 10.08). Weight as of 06/07/23: 83 kg (183 lb). *Patient must be scheduled for Anesthesia support if BMI is 40 or above* Height: 5'11 Weight: 176 BMI: 24.5 Age:73 y.o. documented in this encounter Plan of Treatment Upcoming Encounters Date Type Department Care Team (Late st Contact Info) Description 10/11/2023 10:00 AM EDT Tech [place] [address] Giacomo Queen 10/11/2023 11:15 AM EDT Office [place] [address] Basim Barr MD [facility] [place] [address] 10/18/2023 9:00 AM EDT Office Visit Hematology/Oncology at [address] [phone] Cl Hess MD [facility] [place] [address] Yessi Renee APRN [address] [place] [address] DR HEMATOLOGY AND ONCOLOGY [place], [place] [address] 10/18/2023 9:30 AM EDT Infusion Hematology Oncology at [address] [phone] 10/24/2023 9:30 AM EDT Scheduled View Only Radiation Oncology at [address] [phone] [facility]agne 10/24/2023 10:00 AM EDT Office Visit Radiation Oncology at [address] [phone] Bigg Peters MD [address] [place] [address] DR RADIATION ONCOLOGY [place], [place] [id number] 11/01/2023 9:00 AM EDT Office Visit Hematology/Oncology at [address] [phone] Cl Hess MD [facility] [place] [place] [address] Yessi Renee APRN [address] [place] [address] DR HEMATOLOGY AND ONCOLOGY [place], [place] [address] 11/01/2023 9:30 AM EDT Infusion Hematology Oncology at [address] [phone] 12/24/2023 1:00 PM EDT TH Visit (TeleHealth) Radiation Oncology at [address] [phone] Ping Moore PA [facility] DR HEMATOLOGY [place] [address] documented as of this encounter Visit Diagnoses Not on filedocumented in this encounter Care Teams Needleworker Relationship Specialty Start Date End Date Alo Carey DO [address] [place] [address] [place] [address] PCP - General Internal Medicine 08/31/20 07/03/23 documented as of this encounter
--- OUTSIDE RECORDS SUMMARY | 2023-10-06 00:38 | XMS_ITS | Encounter Summary ---
Author Organization [facility] Address [facility] [place] [address] Care Team Providers Care Passenger Service Manager Name Role Phone Tristen Hunter MD Primary Care Provider Reason for Visit * Reason Comments Chemotherapy Cycle 1 Day 1 FOLFIR INOX * Treatment/Therapy Plan Authorization (Routine) - Authorized Specialty Diagnoses / Procedures Referred By Marques livingston Referred To Contact Diagnoses Malignant neoplasm of prostate Cl Hess MD [facility] [place] [address] Stj Hem Onc Infusion [address] [place] [phone] Referral ID Status Reason Start Date Expiration Date V isits Requested Visits Authorized [id number] Authorized 07/11/2023 07/10/2024 99 99 Encounter Details Date Type Department Care Team (Late st Contact Info) Description 07/12/2023 10:30 AM EDT Infusion Hematology Oncology at [address] [phone] Malignant neoplasm of prostate Social History Tobacco Use Types Packs/Day Years Used Date Smoking Tobacco: Former Cigarettes 4 30 1992 Smokeless Tobacco: Never Alcohol Use Standard Drinks/Week Comments Yes 7 (1 standard drink = 0.6 oz pur e alcohol) [facility] Utilities Answer Date Recorded In the past 12 months has [employer], gas, oil, or water [employer] threatened to shut off services in your [...] a group home (including now)? No 06/04/2023 DH IPV [...] as of this encounter Progress Notes * Mary Jiménez RN - 07/12/2023 10:30 AM EDT Images from the original note were not included. [facility] Genetics lab kit draw #[id number] Provider: Dr. Hess Test Requisition form competed if necessary (done electronically for genetics). Informational papergiven to patient, signed if needed, and patient agreed to lab draw. [facility] [place]. lab kit blood drawn from: [ ] venipuncture [ X ] mediport per protocol Specimens labeled appropriately and packaged per kit directions. Specimens sent via [employer]Ex: 07/12/23 INFUSION THERAPY ADMINISTRATION NOTES DIAGNOSIS: Pancreatic Cancer CYCLE #:1 Day 1 REASON FOR VISIT: FOLFIRINOX SUBJECTIVE Mauri offers no complaints. He was seen in clinic by Dr. Hess prior to infusion. OBJECTIVE LAB DATA: IV ACCESS: Mediport Pre administration: Chemotherapy orders independently verified for drug name, route, and dosage per patient's height, weight and BSA by Mary Jiménez, [facility] onsite. REACTIONS (DESCRIPTION, TIME, INTERVENTION AND EFFECTIVENESS) none ASSESSMENT Mauri was awake, alert and tolerated treatment well. HOME INFUSION - Connect Fluorouracil (5-FU) DOSE: 4800 mg over 46 hours RATE: 3mL/hr ROUTE: IV Port START TIME: 1545 Chemotherapy safety checks performed per protocol with Mariana Enciso RN. Drug amount infused verified by Koko Henry RN double check after approximated 15 minutes and that0.8 mL had infused. Anticipated date/time of disconnect: [facility] 07/14/23 @ 4803 Plan for disconnect: [facility] Disconnect contact number: [phone] Pt. chemo teaching instructions included: During clinic hours (8am-5pm Saturday-Saturday): pt. can call [phone] with questions or concerns. After clinic hours (5pm-8am Saturday-Saturday and weekends) pt can call [phone] and ask for the surgical first assistant/oncologist accordion maker. Wero Mabert verbalized understanding of potential chemotherapy side effects and home care including but not limited to- handwashing to prevent infection, signs and symptoms of low blood counts (fever, fatigue, bleeding), to call with a fever of 100.4 or greater, any significant constipation/diarrhea, importance of nutrition and fluid intake (drinking at least 32-64 ounces of non-caffeinated beverages/day), mouth care. Wero Sadler verbalized understanding of how to take prescription medications given for home useafter chemotherapy. PLAN Return to clinic per routine. documented in this encounter Plan of Treatment Upcoming Encounters Date Type Department Care Team (Late st Contact Info) Description 10/11/2023 10:00 AM EDT Tech [place] [address] Giacomo Queen 10/11/2023 11:15 AM EDT Office [place] [phone] Basim Barr MD [facility] [place] [address] 10/18/2023 9:00 AM EDT Office Visit Hematology/Oncology at [address] [phone] Cl Hess MD [facility] [place] [address] Yessi Renee APRN [address] [place] [address] DR HEMATOLOGY AND ONCOLOGY [place], [place] [phone] 10/18/2023 9:30 AM EDT Infusion Hematology Oncology at [address] [phone] 10/24/2023 9:30 AM EDT Scheduled View Only Radiation Oncology at [address] [phone] St La Nena Champagne 10/24/2023 10:00 AM EDT Office Visit Radiation Oncology at [address] [phone] Bigg Peters MD [address] [place] [address] DR RADIATION ONCOLOGY [place], [place] [address] 11/01/2023 9:00 AM EDT Office Visit Hematology/Oncology at [address] [phone] Cl Hess MD [facility] [place] [address] Yessi Renee APRN [address] [place] [address] DR HEMATOLOGY AND ONCOLOGY [place], [place] [address] 11/01/2023 9:30 AM EDT Infusion Hematology Oncology at [address] [phone] 12/24/2023 1:00 PM EDT TH Visit (TeleHealth) Radiation Oncology at [address] [phone] Ping Moore PA [facility] [place] [address] documented as of this encounter Visit Diagnoses Diagnosis Malignant neoplasm of prostate documented in this encounter Administered Medications Inactive Administered Medications - up to 3 most recent administrations Medication Order MAR Action Action Date Dose Rate Site aprepitant (CINVANTI) injection Emulsion 130 mg 130 mg, Intravenous, Administer over 2 Minutes, ONCE, 1 dose, On Sat07/12/23 at 1115, Alternative administration of IV push over 2 minutes is a recommendation from the discharge planner. Administer prior to chemotherapy., Routine Given 07/12/2023 11:14 AM EDT 130 mg atropine (0.1 mg/mL) injection 0.5 mg 0.5 mg, Intravenous, Administer over 1 Minutes, ONCE, 1 dose, On Sat07/12/23 at 1115, Administer prior to IRINOtecan, Routine Given 07/12/2023 1:54 PM EDT 0.5 mg dexAMETHasone (Decadron) tablet 10 mg 10 mg, Oral, ONCE, 1 dose, On Sat07/12/23 at 1115, Administer prior to chemotherapy, Routine Given 07/12/2023 11:10 AM EDT 10 mg fluorouraciL (AdruciL) in sodium chloride 0.9% 138 mL infusion (46 Hour - For Home Use) 4,800 mg 4,800 mg (2,400 mg/m2/dose ? 2 m2 Treatment Plan BSA from Recorded weight), Intravenous, ONCE, 1 dose, On Sat07/12/23 at 1545, Administer over 46 Hours, Warning Vesicant/Irritant Medication To be infused via an ambulatory infusion CADD Colon pump continuously IV at 3 mL/hr for 46 hours. Pump contains a 46 hour supply and provides a daily dose of 1,200 mg/m2/day = 2,400 mg/m2 IV over 46 hours. Given 07/12/2023 3:42 PM EDT 4,800 mg 3 mL/hr IRINOtecan (Camptosar) 200 mg in dextrose 5% 510 mL infusion 200 mg (rounded from 210 mg = 105 mg/m2/dose ? 2 m2 Treatment Plan BSA from Recorded weight), Intravenous, ONCE, 1 dose, On Sat07/12/23 at 1215, Administer over 90 Minutes, Warning Vesicant/Irritant Medication Administer 30 minutes after the start of the leucovorin. New Bag 07/12/2023 1:59 PM EDT 200 mg 340 mL/hr leucovorin (Wellcovorin) 350 mg in dextrose 5% 85 mL infusion 350 mg, Intravenous, ONCE, 1 dose, On Sat07/12/23 at 1215, Administer over 120 Minutes, Administer upon completion of OXALIplatin infusion. Do not administer at a rate faster than 160 milligrams/minute. New Bag 07/12/2023 1:22 PM EDT 350 mg 42.5 mL/hr OXALIplatin (Eloxatin) 136 mg in dextrose 5% 277.2 mL infusion 136 mg (68 mg/m2/dose ? 2 m2 Treatment Plan BSA from Recorded weight), Intravenous, ONCE, 1 dose, On Sat07/12/23 at 1215, Administer over 85 Minutes, Administer first. Compatible with dextrose-containing solution only. Warning Vesicant/Irritant Medication New Bag 07/12/2023 11:44 AM EDT 136 mg 195.7 mL/hr palonosetron (Aloxi) (0.05 mg/mL) injection 0.25 mg 0.25 mg, Intravenous, ONCE, 1 dose, On Sat07/12/23 at 1115, Administer over 30 seconds., Routine Given 07/12/2023 11:15 AM EDT 0.25 mg documented in this encounter Care Teams Passenger Service Manager Relationship Specialty Start Date End Date Tristen Hunter MD [address] [place] [address] [place] [address] PCP - General Family Medicine 07/04/23 documented as of this encounter
--- OUTSIDE RECORDS SUMMARY | 2023-10-06 00:38 | XMS_ITS | Encounter Summary ---
Author Organization [facility] Address [facility] [place] [address] Care Team Providers Care Creative Services Intern Name Role Phone Alo Carey DO Primary Care Provider [phone] Encounter Details Date Type Department Care Team (Late st Contact Info) Description 07/02/2023 2:00 PM EDT - 07/02/2023 3:30 PM EDT [place] [phone] Pako Lopez MD [facility] [place] [address] UPPER EUS- ENDOSCOPIC ULTRASOUND (WRVU 3.47) Social History Tobacco Use Types Packs/Day Years Used Date Smoking Tobacco: Former Cigarettes 963 - 1992 Smokeless Tobacco: Never Alcohol Use Standard Drinks/Week Comments Yes 7 (1 standard drink = 0.6 oz pur e alcohol) [facility] Utilities Answer Date Recorded In the past 12 months has [employer], gas, oil, or water company threatened [...] in a usp (including now)? No 06/04/2023 Sex and Gender Information Value Date Recorded Sex Assigned at Not on file Gender Identity Not on file Sexual Orientation Not on file documented as of this encounter Last Filed Vital Signs Vital Sign Reading Time Taken Comments Blood Pressure 117/68 07/02/2023 1:43 PM EDT Pulse 57 07/02/2023 1:43 PM EDT Temperature 36.6 ??C (97.9 ??F) 07/02/2023 1:43 PM ED T Respiratory Rate 16 07/02/2023 1:43 PM EDT Oxygen Saturation 98% 07/02/2023 1:43 PM EDT Inhaled Oxygen Concentration - - Weight - - Height - - Body Mass Index - - documented in this encounter Medications at Time of Discharge Medication Sig Dispensed Refills Start Date End Date Insulin Fiasp FlexTouch U-100 100 unit/mL (3 mL) Insulin Pen Inject 3 mLs subcutaneously 3 times daily (before meals). 07/01/2023 Insulin Tresiba FlexTouch U-100 100 unit/mL (3 mL) Insulin Pen ADMINISTER 10 UNITS UNDER THE SKIN TWICE DAILY 06/22/2023 loperamide (IMODIUM A-D) 2 mg Tablet Take by mouth 4 times daily as needed for Diarrhea. Maximum 16 mg in 24 hours chlorthalidone (Hygroton) 25 mg tablet Take 25 mg by mouth daily. omeprazole (PriLOSEC) [address] capsule Take 20 mg by mouth daily. 05/20/2023 omega 2-hkt-bhf-fish oil 250-350-1,000 mg Capsule Take 1,000 mg by mouth. 07/18/2021 amLODIPine (Norvasc) 10 mg Tablet Take 0.5 tablets by mouth daily. Amlodipine (Hold if SBP<120) 11/18/2021 carvediloL (Coreg) 25 mg Tablet Take 1 tablet by mouth 2 times daily (with meals). Carvedilol (hold for SBP <110, Hr <60) 11/18/2021 lisinopriL (Zestril) 40 mg Tablet Take 1 tablet by mouth daily. Lisinopril (hold for SBP <130) 11/18/2021 timoloL (Timoptic) 0.5 % Drops 08/29/2021 erythromycin (Romycin) 5 mg/gram (0.5 %) Ointment Place 1 Tube into the left eye once a week. 08/29/2021 folic acid (Folvite) 1 mg Tablet Take 1 tablet by mouth daily. 90 tablet 3 07/21/2021 isosorbide mononitrate CR (Imdur) 30 mg Tablet Sustained Release 24 hr Take 1 tablet by mouth nightly. 30 tablet 12 07/21/2021 atorvastatin (Lipitor) 80 mg Tablet Take 1 tablet by mouth every evening. 90 tablet 3 07/17/2021 aspirin EC 81 mg Tablet, Delayed Release (E.C.) Take 81 mg by mouth daily. 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 07/26/2023 tamsulosin (Flomax) 0.4 mg capsuleIndications:M alignant neoplasm of prostate TAKE 1 CAPSULE BY MOUTH EVERY NIGHT 30 capsule 07/31/2022 08/20/2023 documented as of this encounter H&P Notes * Real Russell MD - 07/02/2023 2:11 PM EDT Gastroenterology and Hepatology Pre-Procedure History and Physical Exam Procedure: ERCP Indication: pancreatic head adenoca, malignant bile obstruction, uncovered metal stent placed Apr 2023 in [facility], concern for stent occlusion Patient Active Problem List Diagnosis Code Colorectal [...] dysfunction/retention with risk of stretch injury N31.9 EXAM: HEENT: Airway examined, oropharynx clear Mallampati Score: per anesthesia LUNGS: Clear to auscultation HEART: Regular rate and rhythm, normal S1, S2 ABDOMEN: Normal bowel sounds, soft, non tender, non distended A/P: Proceed with the planned endoscopic procedure. ASA 3 - Patient with moderate systemic disease with functional limitations Sedation Plan: anesthesia Risks and benefits of the procedure explained to the patient. Consent form signed and included in the patient's chart. Real Russell MD Advanced Endoscopy Fellow Gastroenterology & Hepatology documented in this encounter Miscellaneous Notes * Op Note - Pako Lopez MD - 07/02/2023 2:59 PM EDT DH Operative Note Patient Name: Wero Sadler : [id number] MR#: [id number] Case Date: 07/02/2023 Surgeon: Surgeon(s) and Role: * Pako Lopez MD - Primary * Real Russell MD - Fellow - Assisting Procedure(s): UPPER EUS- ENDOSCOPIC ULTRASOUND (WRVU 3.47) ERCP (WRVU 5.85) Please see Provation report for details. documented in this encounter Plan of Treatment Upcoming Encounters Date Type Department Care Team (Late st Contact Info) Description 10/11/2023 10:00 AM EDT Tech [place] [address] Giacomo Queen 10/11/2023 11:15 AM EDT Office [place] [address] Basim Barr MD [facility] [place] [address] 10/18/2023 9:00 AM EDT Office Visit Hematology/Oncology at [address] [phone] Cl Hess MD [facility] [place] [address] Yessi Renee APRN [address] [place] [address] DR HEMATOLOGY AND ONCOLOGY [place], [place] [phone] 10/18/2023 9:30 AM EDT Infusion Hematology Oncology at [address] [phone] 10/24/2023 9:30 AM EDT Scheduled View Only Radiation Oncology at [address] [phone] [facility] 10/24/2023 10:00 AM EDT Office Visit Radiation Oncology at [address] [phone] Bigg Peters MD [address] [place] [address] DR RADIATION ONCOLOGY [place], [place] [phone] 11/01/2023 9:00 AM EDT Office Visit Hematology/Oncology at [address] [phone] Cl Hess MD [facility] [place] [address] Yessi Renee APRN [address] [place] [address] DR HEMATOLOGY AND ONCOLOGY [place], [place] [phone] 11/01/2023 9:30 AM EDT Infusion Hematology Oncology at [address] [phone] 12/24/2023 1:00 PM EDT TH Visit (TeleHealth) Radiation Oncology at [address] [phone] Ping Moore PA [facility] DR HEMATOLOGY [place] [address] documented as of this encounter Procedures Procedure Name Priority Date/Time Associated Diagnosis Comments XR ERCP Routine 07/02/2023 3:29 PM EDT RADIOFREQUENCY ABLATION 07/02/2023 2:39 PM EDT Bets- 1-2 weeks EUS/ERCP patient with pancreatic cancer s/p ercp with stent in [facility]. Persistently elevated bilirubin. Ercp, W/Removal Stone, Lonnie/Pancr Ducts ([id number]) 07/02/2023 2:39 PM EDT Bets- 1-2 weeks EUS/ERCP patient with pancreatic cancer s/p ercp with stent in [facility]. Persistently elevated bilirubin. Ercp, Diagnostic ([id number]) 07/02/2023 2:39 PM EDT Bets- 1-2 weeks EUS/ERCP patient with pancreatic cancer s/p ercp with stent in [facility]. Persistently elevated bilirubin. Endoscopic Us Exam, Esoph ([id number]) 07/02/2023 2:39 PM EDT Bets- 1-2 weeks EUS/ERCP patient with pancreatic cancer s/p ercp with stent in [facility]. Persistently elevated bilirubin. ERCP Routine 07/02/2023 2:22 PM EDT documented in this encounter Results * XR ERCP (07/02/2023 3:29 PM EDT) Narrative [facility] - 07/02/2023 3:31 PM EDT See PACS for result report. Pako Lopez MD IM FILM LIBRARY ORD ERABLES [place], [place] * ERCP (07/02/2023 2:22 PM EDT) ERCP [facility] Endoscopy Procedure Date: 07/02/2023 2:22 PM ? Patient Name: Wero Sadler ? Date of : 1950 ? Age: 73 ? Order #: [id number] ? Instrument Name: [id number] ? Procedure: ? ERCP Indications: ? Elevated liver enzymes Providers: ? Real Pemberton ? Agnes Russell, Slim Morrow Referring MD: ?Alo Carey Medicines: ? General Anesthesia Complications: ? No immediate complications. Procedure: ? Pre-Anesthesia Assessment: ? - Prior to the procedure, a History ? and Physical was performed, and ? patient medications and allergies ? were reviewed. The patient is ? competent. The risks and benefits ? of the procedure and the sedation ? options and risks were discussed ? with the patient. All questions ? were answered and informed consent ? was obtained. Patient ? identification and proposed ? procedure were verified by the ? physician in the pre-procedure ? area. Mental Status Examination: ? alert and oriented. Airway ? Examination: normal oropharyngeal ? airway and neck mobility. ? Respiratory Examination: clear to ? auscultation. CV Examination: ? normal. Prophylactic Antibiotics: ? The patient does not require ? prophylactic antibiotics. Prior ? Anticoagulants: The patient has ? taken no anticoagulant or ? antiplatelet agents. ASA Grade ? Assessment: III - A patient with ? severe systemic disease. After ? reviewing the risks and benefits, ? the patient was deemed in ? satisfactory condition to undergo ? the procedure. The anesthesia plan ? was to use general anesthesia. ? Immediately prior to administration ? of medications, the patient was ? re-assessed for adequacy to receive ? sedatives. The heart rate, ? respiratory rate, oxygen ? saturations, blood pressure, ? adequacy of pulmonary ventilation, ? and response to care were monitored ? throughout the procedure. The ? physical status of the patient was ? re-assessed after the procedure. ? The procedure, indications, ? benefits, risks and alternatives ? were explained to the patient. ? Specifically discussed were ? potential complications including, ? but not limited to, bleeding, ? perforation, infection, ? pancreatitis, missing a cancer, and ? adverse medication reactions.The ? Duodenoscope was introduced through ? the mouth, and advanced to the ? duodenum where it was used to ? inject contrast into and used to ? locate the major papilla. The ? patient tolerated the procedure ? well. ? Findings: ? A biliary stent was visible on the laboratory inspector film. The ? esophagus was successfully intubated under direct ? vision without detailed examination of the pharynx, ? larynx, and associated structures, and upper GI ? tract. The upper GI tract was grossly normal. One ? uncovered metal stent originating in the biliary tree ? was emerging from the major papilla. There was ? mild/moderate tumor ingrowth. The bile duct was ? deeply cannulated with the 12 mm balloon. Contrast ? was injected. I personally interpreted the bile duct ? images. There was brisk flow of contrast through the ? ducts. Image quality was excellent. Contrast extended ? to the hepatic ducts. There was mild/moderate ? stenosis within the metal stent. A wire was passed ? into the biliary tree. Biliary radiofrequency ? ablation (RFA) using the [employer] EndoHBP was performed ? to ablate the ingrown tumor. The biliary tree was ? then swept with a 12 mm balloon and cleared of ? coagulative debris. ? Moderate Sedation: ? Not applicable - See Anesthesia documentation Impression: ?- Mild/moderate tumor ingrowth into ? uncovered metal stent ablated with ? intraductal RFA Recommendation: ?- Discharge patient to home. ? - Clear liquid diet for 2 hours. ? - Observe patient's clinical course. ? - Repeat ERCP as needed. ? Procedure Code(s): ? --- Professional --- ? 05741, Esophagogastroduod enoscopy, ? flexible, transoral; diagnostic, ? including collection of specimen(s) ? by brushing or washing, when ? performed (separate procedure) Diagnosis Code(s): ? --- Professional --- ? R74.8, Abnormal levels of other ? serum enzymes ? K83.1, Obstruction of bile duct ? T85.590A, Other mechanical ? complication of bile duct ? prosthesis, initial encounter ? --- Technical --- ? R74.8, Abnormal levels of other ? serum enzymes ? K83.1, Obstruction of bile duct ? T85.590A, Other mechanical ? complication of bile duct ? prosthesis, initial encounter CPT copyright 2021 [employer]. All rights reserved. The codes documented in this report are preliminary and upon parts control clerk review may be revised to meet current compliance requirements. Attending Participation: ? I was present and participated during the entire ? procedure, including non-fernando portions. ? Pako Lopez, 07/02/2023 3:34:55 PM _ Real Russell, Number of Addenda: 0 Note Initiated On: 07/02/2023 2:22 PM PR[employer]ATION 07/02/2023 2:22 PM EDT Alo Carey DO GENERAL SURGICAL ORD ERABLES [employer] documented in this encounter Visit Diagnoses Not on filedocumented in this encounter Administered Medications Inactive Administered Medications - up to 3 most recent administrations Medication Order MAR Action Action Date Dose Rate Site lactated ringers infusion 100 mL/hr, Intravenous, CONTINUOUS, Starting on Sat07/02/23 at 1345, Until Sat07/02/23 at 1913, Day of Surgery (Day of Procedure) Restarted 07/02/2023 3:36 PM EDT New Bag 07/02/2023 1:47 PM EDT 100 mL/hr 100 mL/hr documented in this encounter Active and Recently Administered Medications Times are shown in EDT. Continuous Medication Order 06/30/2023 07/01/2023 07/02/2023 lactated ringers infusion 100 mL/hr, Intravenous, CONTINUOUS, Starting on Sat07/02/23 at 1345, Until Sat07/02/23 at 1913, Day of Surgery (Day of Procedure) 1347 (New Bag - Prov ider: Eldon Cohen RN)1535 (Paused - Provider: Fredi Benrabe CRNA - Comment: Switch to gravity)1536 (Restarted - Provider: Fredi Bernabe CRNA) documented in this encounter Care Teams Creative Services Intern Relationship Specialty Start Date End Date Alo Carey DO [address] [place] [address] [place] [address] PCP - General Internal Medicine 08/31/20 07/03/23 documented as of this encounter
--- OUTSIDE RECORDS SUMMARY | 2023-10-06 00:38 | XMS_ITS | Encounter Summary ---
Author Organization [facility] Address [facility] [place] [address] Care Team Providers Care Outside Laborer Name Role Phone Alo Carey DO Primary Care Provider [phone] Encounter Details Date Type Department Care Team (Late st Contact Info) Description 07/02/2023 2:36 PM EDT Anesthesia [place] [address] Natasha Solares MD [facility] [place] [address] Anesthesia Record Procedure Summary Procedure Name Responsible Anesthesiologist Anesthesia Start Time Anesthesia Stop Time UPPER EUS- ENDOSCOPIC ULTRASOUND (WRVU 3.47) (Trunk) Natasha Solares MD 07/02/23 1436 07/02/23 1536 Events Date Time Event Comment 07/02/2023 1336 1436 AN Verify 1436 Start 1438 An Start Data 1442 An Induction 1449 An Intubation 1451 Anesthesia Ready 1525 Extubation/LMA Out 1532 an stop data 1536 Recovery or ICU Handoff Nisha ent care was transferred to the destination unit staff after review of the patient's medical history, current anesthetic/surgical status and plan, according to the Provider Handoff Checklist. 1536 Stop Meds Name Total IV Lidocaine 100 mg Propofol 200 mg ePHEDrine 10 mg Ondansetron 4 mg Dexamethasone 4 mg succinylcholine 100 mg lactated ringers infusion 900 mL * Agents Name O2 Sevoflurane (et) * Blood No blood administrations on file. Lines, Drains, and Airways Type Details Placement Removal Incision 11/17/21; 1405; Righ t, posterior; hip; Right hip arthroplasty ; LDA not present upon assessment; 07/05/23 11/17/21 1405 by Meghna Fraser RN 07/05/23 0000 by Laura Walsh, RN Urethral Catheter 11/17/21; 1802; Acut e urinary retention or obstruction; inserted at this facility; 1; 10; intraurethral Xylocaine gel; leg bag to dependent drainage; Inserted by [place] resident MD Gunner Servin.; LDA not present upon assessment; 07/05/23 11/17/21 1802 by Rosalee Hummel RN 07/05/23 0000 by Laura Walsh RN PIV 07/02/23; 1345; aufl-avr-uirljv catheter system; 20 gauge; cephalic vein (lateral side of arm), right; Nathan Hastings; LDA not present upon assessment; 07/05/23; 1228 07/02/23 1345 by Eldon Cohen RN 07/05/23 1228 by Savannah Jamison, RN ETT Mask Ventilation: Ea rosemary (1); ETT Type: Cuffed, Oral; ETT Size: 7.5 mm; Mac Blade: 4; Notes: Asleep, Pre-O2, Stylette; Attempts: 1; Laryngoscopy Grade: 1; ETT Placement Verified By: Auscultation, Capnometry, Visual; Secured at Teeth: 23 cm; Inserted by: JAC Bernabe; Removal Date: 07/02/23; Removal Time: 15207/02/23 1449 by Fredi Bernabe CRNA 07/02/23 1525 by Fredi Bernabe CRNA documented in this encounter Social History Tobacco Use Types Packs/Day Years Used Date Smoking Tobacco: Former Cigarettes 1992 Smokeless Tobacco: Never Alcohol Use Standard Drinks/Week Comments Yes 7 (1 standard drink = 0.6 oz pur e alcohol) [facility] Utilities Answer Date Recorded In the past 12 months has [employer], gas, oil, or water [employer] threatened to shut off services in your [...] a group home (including now)? No 06/04/2023 Sex and Gender Information Value Date Recorded Sex Assigned at Not on file Gender Identity Not on file Sexual Orientation Not on file documented as of this encounter OR Notes * Anesthesia Postprocedure Evaluation - Natasha Solares MD - 07/02/2023 3:50 PM EDT Department of Anesthesiology Post-procedure Note Patient: Wero Sadler Procedure Summary Date: 07/02/23 Room / Location: [facility] ENDO 3 / [facility] Anesthesia Start: 1436 Anesthesia Stop: 1536 Procedures: UPPER EUS- ENDOSCOPIC ULTRASOUND (WRVU 3.47) (Trunk) ERCP (WRVU 5.85) (Trunk) ERCP W/REMOVAL CALCULI/DEBRIS FROM BILARY/PANCREATIC DUCT(S) (WRVU 6.63) RADIOFREQUENCY ABLATION Diagnosis: (Bets- 1-2 weeks EUS/ERCP) (patient with pancreatic cancer s/p ercp with stent in [facility]. Persistently elevated bilirubin.) Surgeons: Pako Lopez MD Responsible Provider: Natasha Solares MD Anesthesia Type: general ASA Status: 3 All Anesthesia Providers: Anesthesiologist: Natasha Solares MD SUPPORT ANALYST: Fredi Bernabe CRNA Vitals Value Taken Time BP 104/60 07/02/23 1540 Temp Pulse Resp SpO2 99 % 07/02/23 1550 Pain Level 0 07/02/23 1534 Vitals shown include unfiled device data. Patient Location: PACU/[facility] Level of Consciousness: Conscious but Sleepy Pain Management: Satisfactory Analgesia PONV: None Cardiovascular Status: At Baseline and Hemodynamically Stable Respiratory Status: Supplemental O2 (NC or FM) Postoperative Fluid Status: Intravascular EUvolemia Possible Anesthetic Complications: NONE apparent at time of evaluation Final Primary Anesthesia Type: MAC (The anesthetic type performed was the same as planned.) Comments: Natasha Solares MD * Anesthesia Preprocedure Evaluation - Natasha Solares MD - 07/01/2023 4:53 PM EDT Pre-Anesthesia Evaluation for: Wero Sadler a 73 y.o. male. Procedure(s): UPPER EUS- ENDOSCOPIC ULTRASOUND (WRVU 3.47) ERCP (WRVU 5.85) Patient Active Problem List Diagnosis Date Noted ??? Bradycardia 11/18/2021 ??? Bladder dysfunction/retention with risk of stretch injury 11/18/2021 ??? s/p Right JIMI (Posterior), Dr. Wu - 11/17/21 11/17/2021 ??? Altered mental status, unspecified altered mental status type 07/18/2021 ??? Stenosis of carotid artery, unspecified laterality 06/19/2021 ??? Hx of CABG 05/04/2021 ??? 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 Anterior ischemic optic neuropathy 05/04/2021 ??? Carcinoma of prostate 05/04/2021 ??? Dysphagia 05/04/2021 ??? Hearing loss 05/04/2021 ??? History of cerebrovascular accident 05/04/2021 ??? History of claudication 05/04/2021 ??? BPH (benign prostatic hyperplasia) 02/02/2021 ??? Obstructive sleep apnea syndrome 01/27/2021 ??? Malignant neoplasm of prostate 01/16/2021 ??? Benign prostatic hyperplasia 01/16/2021 ??? Postoperative urinary retention 10/12/2020 ??? Primary osteoarthritis of left hip 10/10/2020 ??? s/p L JIMI, posterior, Dr. Wu, 10/10/20 10/10/2020 ??? ASCVD (arteriosclerotic cardiovascular disease) 10/06/2020 ??? History of carotid endarterectomy 08/18/2020 ??? Colorectal cancer 07/22/2019 ??? Diabetes mellitus 07/22/2019 ??? Hypercholesterolemia 07/22/2019 ??? Hypertension -Labile blood pressurses 07/22/2019 Past Medical History: Diagnosis Date ??? 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 can not read. can see shadows. No vision in left eye since child saavedra accident. ??? Cancer prostate, colorectal ??? Claudication ??? Colon adenocarcinoma 2009 recieved chemo in [place] ??? Coronary artery disease ??? Coronary artery dissection ??? CPAP (continuous positive airway pressure) dependence CPAP ??? Diabetes treated with medication ??? Diabetes mellitus 07/22/2019 ??? Gastroesophageal reflux ??? High blood pressure ??? Hyperlipidemia ??? Obstructive sleep apnea ??? Status post chemotherapy 2009 colon cancer ??? Stroke 11-24-19 Past Surgical History: Procedure Laterality Date ??? CARDIAC SURGERY 12/04/2019 triple bypass ??? CAROTID ENDARTERECTOMY Left 12/04/19, Right 6 months prior ??? CAROTID-SUBCLAVIAN BYPASS GRAFT Bilateral 2017, 2018 ??? FEMORAL-TIBIAL BYPASS GRAFT Left 12/2017 ??? JOINT REPLACEMENT Left hip, left knee, right knee x 2 ??? PRO ARTHROPLASTY ACETABULAR/PROX FEM PROSTC AGRFT/ALGRFT Left 10/10/2020 TOTAL HIP ARTHROPLASTY - POSTERIOR (WRVU 20.72) performed by Ismael Wu MD at [facility] MAIN OR ??? PRO ARTHROPLASTY ACETABULAR/PROX FEM PROSTC AGRFT/ALGRFT Right 11/17/2021 TOTAL HIP ARTHROPLASTY - POSTERIOR (WRVU 20.72) performed by Ismael Wu MD at [facility] MAIN OR ??? PRO EXPLORATION NOT FOLLOWED BY SURG NECK ARTERY Right 07/14/2021 @EXPLORATION NOT FOLLOWED BY SURGICAL REPAIR, ARTERY; NECK (CAROTID OR SUBCLAVIAN) (WRVU 9.19) performed by Basim Barr MD at [facility] MAIN OR ??? PRO LASER VAPORIZATION SURGERY PROSTATE, COMPLETE Midline 02/02/2021 CYSTO, LASER TURP (WRVU 12.15) performed by Cayetano Engle MD at [facility] MAIN OR ??? PRO PLACE TRANSCATHETER STENT, CCA W EMBOLIC PROECT Right 07/14/2021 @TRANSCATH INTRAVASCULAR STENT,CAROTID,PERC,W\EMBOLIC PROT. (WRVU 18) performed by Basim Barr MD at [facility] MAIN OR Social History Tobacco Use ??? Smoking status: Former Packs/day: 4.00 Years: 30.00 Additional pack years: 0.00 Total pack years: 120.00 Types: Cigarettes Quit date: 1992 Years since quittin.3 ??? Smokeless tobacco: Never Substance Use Topics ??? Alcohol use: Yes Alcohol/week: 7.0 standard drinks of alcohol Types: 7 Cans of beer per week Social History Substance and Sexual Activity Drug Use Not Currently Allergies Allergen Reactions ??? Cyclobenzaprine Other (See Comments) Extreme moodiness Other reaction(s): Other (See Comments) Extreme moodiness ??? Other [Unclassified Drug] Other (See Comments) Had reaction to a dye used during vascular procedure at [facility] in [place]: shaking Has tolerated MRI and CT contrast. Medications: MAR and/or home medications have been reviewed. Physical Exam: Preprocedure Vitals Current as of 07/01/23 1653 No BP, pulse, respiration, SpO2, or temperature recorded. Height: Weight: BMI: IBW: Airway Assessment: Mallampati: II TM distance: >3 FB Neck ROM: full Cardiovascular Assessment: Rhythm: regular Rate: normal Pulmonary Assessment: unlabored breathing Dental Assessment: Comment: Poor dentition Misc Assessment: IV access: Peripheral line Last Filed Perioperative Cognitive Screening Value Time User AD8 Total Score: 0 05/04/2021 11:00 AM Delia Champagne RN AD8 Informant: Other Informant 05/04/2021 11:00 AM Delia Champagne RN 4AT TOTAL Score: 1 07/14/2021 1:30 PM Taylor Rivera RN CFS Frailty Score: 4 05/04/2021 11:00 AM Ashley Salazar RN Anesthesia Plan: ASA 3 general, with a(n) intravenous induction 73 yo M for EUS/ERCP. Pancreatic Ca with rising bili, Colorectal Ca, CAD, NIDDM on SGLT2 Inhibitor,L total hip, Hld, Htn, OLGA, blindness Allergy to Cyclobenzaprine IV, GA/ETT Region - Other Informed Consent: Anesthetic plan and risks discussed with patient and spouse. Plan discussed with SUPPORT ANALYST and attending. Anesthesia Screening documented in this encounter Plan of Treatment Upcoming Encounters Date Type Department Care Team (Late st Contact Info) Description 10/11/2023 10:00 AM EDT Tech [place] [address] Giacomo Queen 10/11/2023 11:15 AM EDT Office [place] [address] Basim Barr MD [facility] [place] [address] 10/18/2023 9:00 AM EDT Office Visit Hematology/Oncology at [address] [phone] Cl Hess MD [facility] [place] [address] Yessi Renee APRN [address] [place] [address] [place] [address] 10/18/2023 9:30 AM EDT Infusion Hematology Oncology at [address] [phone] 10/24/2023 9:30 AM EDT Scheduled View Only Radiation Oncology at [address] [phone] Jeronimo Bowen [place] 10/24/2023 10:00 AM EDT Office Visit Radiation Oncology at [address] [phone] Bigg Peters MD [address] [place] [address] DR RADIATION ONCOLOGY [place], [place] [address] 11/01/2023 9:00 AM EDT Office Visit Hematology/Oncology at [address] [phone] Cl Hess MD [facility] [place] [address] Yessi Renee APRN [address] [place] [address] DR HEMATOLOGY AND ONCOLOGY [place], [place] [address] 11/01/2023 9:30 AM EDT Infusion Hematology Oncology at [address] [phone] 12/24/2023 1:00 PM EDT TH Visit (TeleHealth) Radiation Oncology at [address] [phone] Ping Moore PA [facility] DR [place] [address] documented as of this encounter Visit Diagnoses Not on filedocumented in this encounter Administered Medications Inactive Administered Medications - up to 3 most recent administrations Medication Order MAR Action Action Date Dose Rate Site dexAMETHasone (Decadron) injection Intravenous, PRN, Starting on Sat07/02/23 at 1453, Until Sat07/02/23 at 1538, Anesthesia Intra-op, Routine Given 07/02/2023 2:53 PM EDT 4 mg ePHEDrine sulfate (5 mg/mL) multi-dose injection Intravenous, PRN, Starting on Sat07/02/23 at 1457, Until Sat07/02/23 at 1538, Anesthesia Intra-op, Routine Given 07/02/2023 2:57 PM EDT 10 mg lactated ringers infusion 100 mL/hr, Intravenous, CONTINUOUS, Starting on Sat07/02/23 at 1345, Until Sat07/02/23 at 1913, Day of Surgery (Day of Procedure) Restarted 07/02/2023 3:36 PM EDT New Bag 07/02/2023 1:47 PM EDT 100 mL/hr 100 mL/hr lidocaine (pf) (Xylocaine) (20 mg/mL) 2% injection syringe Intravenous, PRN, Starting on Sat07/02/23 at 1444, Until Tu07/02/23 at 1538, Anesthesia Intra-op, Routine Given 07/02/2023 2:44 PM EDT 100 mg ondansetron (pf) (Zofran) (2 mg/mL) injection Intravenous, PRN, Starting on Sat07/02/23 at 1512, Until e 07/02/23 at 1538, Anesthesia Intra-op, Routine Given 07/02/2023 3:12 PM EDT 4 mg propofoL (Diprivan) 10 mg/mL bolus injection (Anesthesia) Intravenous, PRN, Starting on Sat07/02/23 at 1444, Until 07/02/23 at 1538, Anesthesia Intra-op Given 07/02/2023 2:44 PM EDT 200 mg succinylcholine (Anectine;Quelicin) (20 mg/mL) injection Intravenous, PRN, Starting on Sat07/02/23 at 1444, Until Sat07/02/23 at 1538, Anesthesia Intra-op, Routine Given 07/02/2023 2:44 PM EDT 100 mg documented in this encounter Care Teams Outside Laborer Relationship Specialty Start Date End Date Alo Carey DO [address] [place] [address] [place] [address] PCP - General Internal Medicine 08/31/20 07/03/23 documented as of this encounter
--- OUTSIDE RECORDS SUMMARY | 2023-10-06 00:38 | XMS_ITS | Encounter Summary ---
Author Organization [facility] [place] [address] Care Team Providers Care Breaker Engineer Name Role Phone Alo Carey Primary Care Provider [phone] Encounter Details Date Type Department Care Team (Latest Contact Info) Description 06/25/2023 Travel Social History Tobacco Use Types Packs/Day Years Used Date Smoking Tobacco: Former Cigarettes 4 30 963 1992 Smokeless Tobacco: Never Alcohol Use Standard Drinks/Week Comments Yes 7 (1 standard drink = 0.6 oz pur e alcohol) [facility] Utilities Answer Date Recorded In the past 12 months has e electric, gas, oil, or water [employer] threatened to shut off services in your [...] AM EDT Tech [place] [address] Giacomo Queen 10/11/2023 11:15 AM EDT Office Visit V[place] [address] Basim Barr MD [facility] DR [place]ASCULAR [place] [address] 10/18/2023 9:00 AM EDT Office Visit Hematology/Oncology at [address] [phone] Cl Hess MD [facility] [place] [address] Yessi Renee APRN [address] [place] [address] DR HEMATOLOGY AND ONCOLOGY [place], [place] [phone] 10/18/2023 9:30 AM EDT Infusion Hematology Oncology at [address] [phone] 10/24/2023 9:30 AM EDT Scheduled View Only Radiation Oncology at [address] [phone] Jeronimo Nurse [place] 10/24/2023 10:00 AM EDT Office Visit Radiation Oncology at [address] [phone] Bigg Peters MD [address] [place] [address] DR RADIATION ONCOLOGY [place], [place] [address] 11/01/2023 9:00 AM EDT Office Visit Hematology/Oncology at [address] [phone] Cl Hess MD [facility] [place] [address] Yessi Renee APRN [address] [place] [address] DR HEMATOLOGY AND ONCOLOGY [place], [place] [id number] 11/01/2023 9:30 AM EDT Infusion Hematology Oncology at [address] [phone] 12/24/2023 1:00 PM EDT TH Visit (TeleHealth) Radiation Oncology at [address] [phone] Ping Moore PA [facility] DR HEMATOLOGY AND [place] [address] documented as of this encounter Visit Diagnoses Not on filedocumented in this encounter Care Teams Breaker Engineer Relationship Specialty Start Date End Date Alo Carey DO [address] [place] [address] [place] [phone] PCP - General Internal Medicine 08/31/20 07/03/23 documented as of this encounter
--- OUTSIDE RECORDS SUMMARY | 2023-10-06 00:38 | XMS_ITS | Encounter Summary ---
Author Organization [facility] Address [facility] [place] [address] Care Team Providers Care Sign Artist Name Role Phone Tristen Hunter MD Primary Care Provider [phone] Encounter Details Date Type Department Care Team (Late st Contact Info) Description 07/12/2023 10:00 AM EDT Office Visit Hematology/Oncology at [address] [phone] Cl Hess MD [facility] [place] [address] Yessi Renee, [address] HEMATOLOGY AND ONCOLOGY [place], [place] [phone] Malignant neoplasm of head of pancreas; Drug-induced nausea and vomiting Social History Tobacco Use Types Packs/Day Years Used Date Smoking Tobacco: Former Cigarettes 4 30 1 963 - 1992 Smokeless Tobacco: Never Alcohol Use Standard Drinks/Week Comments Yes 7 (1 standard drink = 0.6 oz pur e alcohol) [facility] Utilities Answer Date Recorded In [...] Sign Reading Time Taken Comments Blood Pressure 114/50 07/12/2023 10:06 AM EDT Pulse 64 07/12/2023 10:06 AM EDT Temperature 36.3 ??C (97.3 ??F) 07/12/2023 1 0:06 AM EDT Respiratory Rate 18 07/12/2023 10:0 6 AM EDT Oxygen Saturation 99% 07/12/2023 10: 06 AM EDT Inhaled Oxygen Concentration - - Weight 82.5 kg (181 lb 12.8 oz) 024 10:06 AM EDT Height 180.3 cm (5' 10.98) 07/12/2023 10:06 AM EDT Body Mass Index 25.37 07/12/2023 10:06 AM EDT documented in this encounter Progress Notes * Cl Hess MD - 07/12/2023 10:00 AM EDT fSubjective Patient ID: Wero Sadler [...] periduodenal or perilesional adenopathy was appreciated Impression: [id number] pancreas head mass lesion with biliary and [...] disease/disease progression on interim staging evaluation. [facility] second read of CT c/a/p from 05/22/23 [...] There was no evidence of metastatic disease. 2. Colorectal cancer S/p resection in 2008 [...] The history is summarized above. Wero is accompanied by his significant other, Amy. 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 He is doing ok. He is eating well and his weight is up a little bit. He is taking creon with meals (2 with meals and 1 snacks) and feels this is helping him. He has no diarrhea now and is having fewer problems with gassiness and bloating. He has neuropathy in his feet. He has some unsteadiness in the morning. He got a treadmill yesterday. He is taking creon and they feel this has been helpful for him. 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 Labs: WBC/ANC - 6.10/4899, Hgb/Hct - 11.5/34.6, Plts - 224,000. BUN/Cr - 20/0.7. Glucose - 228, alk phos - 149, bilirubin - 1.1, Alb - 3.1. Lytes and LFTs, o/w unremarkable CA 19-9 06/25/23 390 05/22/23 684.7 Assessment and Plan [...] was recommended but not performed. While in [facility], he presented with chest pain and [...] with Medical Oncology and Surgical Oncology in [facility]. Per patient, the tumor was felt to be surgically removable, although he says that upfront chemotherapy was also discussed. We met on 06/07/23. Pathology was requested for review at [facility] and we also requested that images be [...] in the absence of cold, hypersensitivity reactions, angina/ME and others. He was given an informational handout regarding mFolfirinox. We reviewed his case at [facility] on 06/18/23. The Ct from [...] plan was for a blood draw in [facility] once he starts his infusions. If genetic testing showed a BRCA or PALB2 mutation, he may be eligible for a clinical trial looking at theuse olaparib following completion of chemotherapy and surgery to see if this improves RFS. He will be followed also by our clinical sanitation supervisor, Lupe Velasquez. Plan: Begin neoadjuvant therapy with mFolfirinox. 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 RTC - 2 weeks documented in this encounter Plan of Treatment Upcoming Encounters Date Type Department Care Team (Late st Contact Info) Description 10/11/2023 10:00 AM EDT Tech [place] [address] Giacomo Queen 10/11/2023 11:15 AM EDT Office [place] [address] Basim Barr MD [facility] [place] [place] [address] 10/18/2023 9:00 AM EDT Office Visit Hematology/Oncology at [address] [phone] Cl Hess MD [facility] [place] [address] Yessi Renee [address] HEMATOLOGY AND ONCOLOGY [place], [place] [phone] 10/18/2023 9:30 AM EDT Infusion Hematology Oncology at [address] [phone] 10/24/2023 9:30 AM EDT Scheduled View Only Radiation Oncology at [address] [phone] Rad Nurse, [place] 10/24/2023 10:00 AM EDT Office Visit Radiation Oncology at [address] [phone] Bigg Peters MD [address] [place] [address] DR RADIATION ONCOLOGY [place], [place] [address] 11/01/2023 9:00 AM EDT Office Visit Hematology/Oncology at [address] [phone] Cl Hess MD [facility] [place] [address] Yessi Renee APRN [address] [place] [address] DR HEMATOLOGY AND ONCOLOGY [place], [place] [phone] 11/01/2023 9:30 AM EDT Infusion Hematology Oncology at [address] [phone] 12/24/2023 1:00 PM EDT TH Visit (TeleHealth) Radiation Oncology at [address] [phone] Ping Moore PA [facility] [place] [address] documented as of this encounter Visit Diagnoses Diagnosis Malignant neoplasm of head of pancreas Drug-induced nausea and vomiting Nausea with vomiting documented in this encounter Care Teams Sign Artist Relationship Specialty Start Date End Date Tristen Hunter MD [address] [place] [address] [place] [address] PCP - General Family Medicine 07/04/23 documented as of this encounter
--- OUTSIDE RECORDS SUMMARY | 2023-10-06 00:38 | XMS_ITS | Encounter Summary ---
[place] [address] Care Team Providers Care Sawyer Cork Slabs Name Role Phone Alo Carey Primary Care Provider [phone] Encounter Details Date Type Department Care Team (Latest Contact Info) Description 06/19/2023 4:31 PM EDT - 06/19/2023 11:59 PM EDT [place] [address] Discharge Disposition: Home Social History Tobacco Use Types Packs/Day Years Used Date Smoking Tobacco: Former Cigarettes 4 30 963 - 1992 Smokeless Tobacco: Never Alcohol [...] in a detention (including now)? No 06/04/2023 Sex and Gender Information Value Date Recorded Sex Assigned at Not on file Gender Identity Not on file Sexual Orientation Not on file documented as of this encounter Medications at Time of Discharge Medication Sig Dispensed Refills Start Date End Date omeprazole (PriLOSEC) [address] capsule Take 20 mg by mouth daily. 05/20/2023 omega 2-nrl-tlu-fish oil 250-350-1,000 mg Capsule Take 1,000 mg [...] (E.C.) Take 81 mg by mouth daily. 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 07/26/2023 Lantus Solostar U-100 Insulin 100 unit/mL (3 mL) pen Inject 10 Units subcutaneously 2 times daily. 03/27/2023 06/25/2023 tamsulosin (Flomax) 0.4 mg capsuleIndications:M alignant neoplasm of prostate TAKE 1 CAPSULE BY MOUTH EVERY NIGHT 30 capsule 07/31/2022 08/20/2023 documented as of this encounter Plan of Treatment Upcoming Encounters Date Type Department Care Team (Late st Contact Info) Description 10/11/2023 10:00 AM EDT Tech [place] [address] Giacomo Queen 10/11/2023 11:15 AM EDT Office Visit [place] [address] Basim Barr MD [facility] [place] [address] 10/18/2023 9:00 AM EDT Office Visit Hematology/Oncology at [address] [phone] Cl Hess MD [facility] [place] [address] Yessi Renee, ARNOLD [address] [place] [address] DR HEMATOLOGY AND ONCOLOGY [place], [place] [phone] 10/18/2023 9:30 AM EDT Infusion Hematology Oncology at [address] [phone] 10/24/2023 9:30 AM EDT Scheduled View Only Radiation Oncology at [address] [phone] St La Nena Champagne 10/24/2023 10:00 AM EDT Office Visit Radiation Oncology at [address] [phone] Bigg Peters MD [address] [place] [address] DR RADIATION ONCOLOGY [place], [place] [phone] 11/01/2023 9:00 AM EDT Office Visit Hematology/Oncology at [address] [phone] Cl Hess MD [facility] [place] [address] Yessi Renee APRN [address] [place] [address] DR HEMATOLOGY AND ONCOLOGY [place], [place] [phone] 11/01/2023 9:30 AM EDT Infusion Hematology Oncology at [address] [phone] 12/24/2023 1:00 PM EDT TH Visit (TeleHealth) Radiation Oncology at [address] [phone] Ping Moore PA [facility] DR HEMATOLOGY [place] [address] documented as of this encounter Procedures Procedure Name Priority Date/Time Associated Diagnosis Comments NON-INFECTION PREVENTION PRACTITIONER FINAL REPORT Routine 06/19/2023 4:33 PM EDT SURGICAL PATHOLOGY REPORT Routine 06/19/2023 4:32 PM EDT documented in this encounter Results * (ABNORMAL) Non-Sales And Marketing Representative Final Report (06/19/2023 4:33 PM EDT) Non-Sales And Marketing Representative Final Report [id number] ? Location: [facility] The signing pathologist has (i) examined the relevant preparation(s) for the specimen(s) and (ii) rendered or confirmed the diagnosis(es). . ? Non-Sales And Marketing Representative Final DIAGNOSIS Suspicious for Malignancy Electronically signed by: ?Kylee HIGHTOWER PhD, Kit Deutsch Verified: ??07/02/2023 16:32 ??Pathologist Performed at: ??-[facility] Dept. of Pathology, [place] [address] Team Automobile Assembler: Ilan Martinez MD, [facility], ??CLIA Certificate: [id number] DISCUSSION The specimen contains rare clusters of highly atypical epithelioid cells with macrocytosis and prominent nucleoli. ?? Cell block was examined. See note. Note: The findings are suspicious for adenocarcinoma. THIS RESULT REQUIRES PHYSICIAN/A.P.P. FOLLOW UP CLINICAL INFORMATION CONSULTATION CASE Source: ? Pancreas, head (EUS-guided FNA) Clinical History: ? Mass . Received 3 slide(s) labeled [id number] Received 0 block(s). Specimen collection date: ? 04/29/2023. Surgical consult slides also received. For the full text of the [facility] report(s), please refer to [facility] Tracking #: ? [id number] . Report to: [facility] [address] [place] [phone](A) [facility] 06/19/2023 4:33 PM EDT Charu Balbuena MD PATHOLOGY/CYTOLOGY ORDERABLES [facility] [place] [phone] * (ABNORMAL) Surgical Pathology Report (06/19/2023 4:32 PM EDT) Final Diagnosis [id number] ? Location: [facility] The signing pathologist has (i) examined the relevant preparation(s) for the specimen(s) and (ii) rendered or confirmed the diagnosis(es). . ?Surgical Pathology DIAGNOSIS CONSULTATION CASE Outside slide(s) labeled [id number], collection date 04/29/2023. A. Head of pancreas mass, biopsy: - Scant epithelium with marked atypia, suspicious for adenocarcinoma. Electronically signed by: ?Maged HIGHTOWER PhD, Li Verified: ??07/02/2023 14:29 ??Pathologist Performed at: ??-[facility] Dept. of Pathology, [place] [address] Team Automobile Assembler: Ilan Martinez MD, AP, ??IA Certificate: [id number] DISCUSSION The case was reviewed at the GI pathology consensus conference. THIS RESULT REQUIRES PHYSICIAN/A.P.P . FOLLOW UP SPECIMEN(S) SUBMITTED CONSULTATION CASE A - 2 slide(s) labeled [id number], collection date 04/29/2023. [id number] Cytology consult slides also received. CARBON COPY: [facility] [address] [place] [address] [phone] CLINICAL INFORMATION Head of ??pancreas mass. SPECIMEN PROCESSING [facility] (CORN HUSKER MACHINE OPERATOR) pathology slide(s) are reviewed. Refer to Diagnosis and Specimen Submitted for specific case information. For the full text of the CORN HUSKER MACHINE OPERATOR report(s) please refer to the Chart Review Media tab in the electronic health record (eDH).(A) 07/02/2023 2:29 PM EDT [facility] Consult Case 06/19/2023 4:32 PM EDT 06/19/2023 4:32 PM EDT Charu Balbuena MD PATHOLOGY/CYTOLOGY ORDERABLES Performing Organization Address City/State/[facility] Co de Phone Number [facility] [place] [phone] documented in this encounter Visit Diagnoses Not on filedocumented in this encounter Care Teams Sawyer Cork Slabs Relationship Specialty Start Date End Date Alo Carey DO [address] [place] [address] [place] [phone] PCP - General Internal Medicine 08/31/20 07/03/23 documented as of this encounter
--- OUTSIDE RECORDS SUMMARY | 2023-10-06 00:38 | XMS_ITS | Encounter Summary ---
Author Organization [facility] [place] [address] Care Team Providers Care Wool Shearer Name Role Phone CherryAlo Lon RUTHERFORD Primary Care Provider [phone] Reason for Visit * Consultation (Routine) - Closed Specialty Diagnoses / Procedures Referred By Marques livingston Referred To Contact General Surgery Diagnoses Malignant neoplasm of head of pancreas Cl Hess MD [facility] [place] [address] Charu Balbuena MD [facility] [place] [address] Referral ID Status Reason Start Date Expiration Date V isits Requested Visits Authorized [id number] Closed Consult, Test & Treat 06/06/2023 06/05/2024 1 1 Encounter Details Date Type Department Care Team (Late st Contact Info) Description 06/25/2023 1:00 PM EDT Office [place] [address] Charu Balbuena MD [facility] [place] [address] Malignant neoplasm of head of pancreas Social History Tobacco Use Types Packs/Day Years Used Date Smoking Tobacco: Former Cigarettes 30 1 963 - 1992 Smokeless Tobacco: Never Alcohol Use Standard Drinks/Week Comments Yes 7 (1 standard drink = 0.6 oz pur e alcohol) [facility] Utilities Answer Date Recorded In the [...] in a fpc (including now)? No 06/04/2023 Sex and Gender Information Value Date Recorded Sex Assigned at Not on file Gender Identity Not on file Sexual Orientation Not on file documented as of this encounter Last Filed Vital Signs Vital Sign Reading Time Taken Comments Blood Pressure 99/55 06/25/2023 12:49 PM EDT Pulse 71 06/25/2023 12:49 PM EDT Temperature 36.6 ??C (97.8 ??F) 06/25/2023 12:49 PM E DT Respiratory Rate 18 06/25/2023 12:49 PM EDT Oxygen Saturation 96% 06/25/2023 12:49 PM EDT Inhaled Oxygen Concentration - - Weight - - Height - - Body Mass Index - - documented in this encounter Progress Notes * Charu Balbuena MD - 06/25/2023 1:00 PM EDT Hepatopancreatobiliary Surgical Oncology Consultation Note Date: 06/25/2023 Primary physician: Alo Carey DO Referring physician: Alex Hess MD Reason for evaluation: Biopsy proven borderline resectable PDAC History of the present illness: Mr. Sadler is a 73 year old from [place], [place]. Dr. Hess recently presented his case to the GI tumor board on 06/18/2023 as his workup was completed at [facility] in [place]. His history is summarized below: 73 yo, h/o multiple medical problems as above, including colon cancer (resected in 2008), prostate cancer (s/p androgen deprivation and RT), ASCVD (sp 3v CABG), PVDz s/p carotid endarterectomy, priorCVA, DM and others. 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 While in [facility], he presented with chest pain and SOB [...] says that upfront chemotherapy was also discussed. CA 19-9 on 05/22/23 - 684.7 Imaging:CT from 05/2023 reviewed. Will request second read. There is a 3.5 x 2.8 soft tissue lesion with an adjacent cystic lesion. The soft tissue component appears to be associated with 90-180 degree abutment of the SMA and abutment of the SMV. The cystic lesion abuts the portal vein. There is no definite evidence of metastatic disease. The primary tumor is considered borderline resectable Pathology/Histology: requested, not available for review Stage: [...] metastatic disease/disease progression on interim staging evaluation. Today: 06/25/2023 B Surgery Consult. Mauri was seen today in the surgery clinic accompanied by Amy, his significant other. He has already had his oncology consultation with Dr. Hess and we discussed his case at the GI tumor board. Down to [place] of the group down there felt that there was no abutment along the vessels and put him in the resectable category where as we thought that there was abutment for 90 degrees along the lateral SMA and less than 100 degree abutment on the SMV with a little bit of deformity-placed in the borderline category. He has been on pancreas enzymes and overall seems to be doing quite well. He apparently lost 40 pounds. His jaundice symptoms have nicely resolved. 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 can not read. can see shadows. No vision in left eye since child saavedra accident. Cancer prostate, colorectal Claudication Colon adenocarcinoma 2008 recieved chemo in [place] Coronary artery disease Coronary artery dissection CPAP (continuous positive airway pressure) dependence CPAP Diabetes treated with medication Diabetes mellitus 07/22/2019 Gastroesophageal reflux High blood pressure Hyperlipidemia Obstructive sleep apnea Status post chemotherapy 2008 colon cancer Stroke 11-24-19 Past Surgical History: Past Surgical History: Procedure Laterality Date CARDIAC SURGERY 12/04/2019 triple bypass CAROTID ENDARTERECTOMY Left 12/04/19, Right 6 months prior CAROTID-SUBCLAVIAN BYPASS GRAFT Bilateral 2017, 2018 FEMORAL-TIBIAL BYPASS GRAFT Left 12/2017 JOINT REPLACEMENT Left hip, left knee, right knee x 2 PRO ARTHROPLASTY ACETABULAR/PROX FEM PROSTC AGRFT/ALGRFT Left 10/10/2020 TOTAL HIP ARTHROPLASTY - POSTERIOR (WRVU 20.72) performed by Ismael Wu MD at [facility] MAIN OR PRO ARTHROPLASTY ACETABULAR/PROX FEM PROSTC AGRFT/ALGRFT Right 11/17/2021 TOTAL HIP ARTHROPLASTY - POSTERIOR (WRVU 20.72) performed by Ismael Wu MD at [facility] MAIN OR PRO EXPLORATION NOT FOLLOWED BY SURG NECK ARTERY Right 07/14/2021 @EXPLORATION NOT FOLLOWED BY SURGICAL REPAIR, ARTERY; NECK (CAROTID OR SUBCLAVIAN) (WRVU 9.19) performed by Basim Barr MD at [facility] MAIN OR PRO LASER VAPORIZATION SURGERY PROSTATE, COMPLETE Midline 02/02/2021 CYSTO, LASER TURP (WRVU 12.15) performed by Cayetano Engle MD at [facility] MA[facility] OR PRO PLACE TRANSCATHETER STENT, CCA W EMBOLIC PROECT Right 07/14/2021 @TRANSCATH INTRAVASCULAR STENT,CAROTID,PERC,W\EMBOLIC PROT. (WRVU 18) performed by Basim Barr MD at [facility] MAIN OR Medications: qryzit-amoupoky-gvyygye (Creon 24) 24,000-76,000 -120,000 unit capsule Farxiga 10 mg tablet omeprazole (PriLOSEC) [address] capsule Lantus Solostar U-100 Insulin 100 unit/mL (3 mL) pen tamsulosin (Flomax) 0.4 mg capsule omega 6-ibi-lyv-fish oil 250-350-1,000 mg Capsule amLODIPine (Norvasc) 10 mg Tablet carvediloL (Coreg) 25 mg Tablet lisinopriL (Zestril) 40 mg Tablet timoloL (Timoptic) 0.5 % Drops erythromycin (Romycin) 5 mg/gram (0.5 %) Ointment folic acid (Folvite) 1 mg Tablet isosorbide mononitrate CR (Imdur) 30 mg Tablet Sustained Release 24 hr atorvastatin (Lipitor) 80 mg Tablet aspirin EC 81 mg Tablet, Delayed Release (E.C.) He takes Lantus 10 units in the morning and 10 at nighttime and he is also on Farxiga (SGLT-2 diabetes medication. Allergies: Allergies Allergen Reactions Cyclobenzaprine Other (See Comments) Extreme moodiness Other reaction(s): Other (See Comments) Extreme moodiness Other [Unclassified Drug] Other (See Comments) Had reaction to a dye used during vascular procedure at [facility] in [place]: shaking Has tolerated MRI and CT contrast. Physical Examination: Vital signs: Blood pressure 99/55, pulse 71, temperature 36.6 ??C (97.8 ??F), temperature source Temporal, resp. rate 18, SpO2 96%. 06/07/2019 183 pounds. Back on July 2022 for example he was 230 pounds. Skin: No jaundice, lesions or masses noted. HEENT: Sclera is anicteric. Chest: Clear to auscultation bilaterally on posterior chest raymond. Heart: RRR with no murmurs appreciated. Abdomen: Soft, nondistended nontender. Lower midline scar from colectomy surgery with slight diastases versus incisional hernia-reducible. Extremity exam: No peripheral edema bilaterally. Assessment and plans: At today's clinic appointment we discussed the diagnosis of localized pancreatic cancer. His CA 19-9 was in the 600 range back in May but likely was when he was still jaundiced. Mauri is blind and can see what he describes as 1%. I showed his significant other-Amy the CT images and the rationale for the Whipple surgery briefly. The tumor in the head region of the pancreas is very difficult to see mostly because of the significant ductal dilation and the pancreatic duct so the abutment may just be the duct rather than the actual tumor in which case she would be in the resectable category. That said given his high CA 19-9 level I think we can make a very good argument for neoadjuvant therapy with systemic therapy first and hopefully he will respond to modify FOLFIRINOX. 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 Hess up in [place]. He may then not require radiation therapy and we can make those decisions after he finishes his 4 months of systemic therapy. I recommended that we proceed with a laparoscopy to complete staging workup and the Mediport placement. We are trying to look for OR time from a first which is a Saturday and he is scheduled to see Dr. Hess on July 11 up in [place] to get started with chemotherapy. Hopefully the Mediport will be in place by then and he can get started without any further delays. We will asked that he hold the Farxiga 3 days prior to the surgery date. Roberto Balbuena MD 06/25/2023 1:57 PM Time Spent With Patient: 60 minutes of this 80 minute visit were spent in tccb-yq-kbaj discussion and counseling the patient as detailed above. documented in this encounter Plan of Treatment Upcoming Encounters Date Type Department Care Team (Late st Contact Info) Description 10/11/2023 10:00 AM EDT Tech [place] [address] Giacomo Queen 10/11/2023 11:15 AM EDT Office [place] [address] Basim Barr MD [facility] [place] [address] 10/18/2023 9:00 AM EDT Office Visit Hematology/Oncology at [address] [phone] Cl Hess MD [facility] [place] [address] Yessi Renee, [address] HEMATOLOGY AND ONCOLOGY [place], [place] [address] [phone] 10/18/2023 9:30 AM EDT Infusion Hematology Oncology at [address] [phone] 10/24/2023 9:30 AM EDT Scheduled View Only Radiation Oncology at [address] [phone] Jeronimo Bowen [place] 10/24/2023 10:00 AM EDT Office Visit Radiation Oncology at [address] [phone] Bigg Peters MD [address] [place] [address] DR RADIATION ONCOLOGY [place], [place] [phone] 11/01/2023 9:00 AM EDT Office Visit Hematology/Oncology at [address] [phone] Cl Hess MD [facility] [place] [address] Yessi Renee, [address] HEMATOLOGY AND ONCOLOGY [place], [place] [address] 11/01/2023 9:30 AM EDT Infusion Hematology Oncology at [address] [phone] 12/24/2023 1:00 PM EDT TH Visit (TeleHealth) Radiation Oncology at [address] [phone] Ping Moore PA [facility] DR HEMATOLOGY [place] [address] documented as of this encounter Visit Diagnoses Diagnosis Malignant neoplasm of head of pancreas documented in this encounter Care Teams Wool Shearer Relationship Specialty Start Date End Date Alo Carey DO [address] [place] [address] [place] [address] PCP - General Internal Medicine 08/31/20 07/03/23 documented as of this encounter
--- OUTSIDE RECORDS SUMMARY | 2023-10-06 00:38 | XMS_ITS | Encounter Summary ---
[place] [address] Care Team Providers Care Director Design Name Role Phone YungAlo santiago Primary Care Provider [phone] Encounter Details Date Type Department Care Team (Late st Contact Info) Description 06/27/2023 External [place] [phone] Provider, Scanning Social History Tobacco Use Types Packs/Day Years Used Date Smoking Tobacco: Former Cigarettes 4 30 1 963 - 1992 Smokeless Tobacco: Never Alcohol Use Standard Drinks/Week Comments Yes 7 (1 standard drink = 0.6 oz pur e alcohol) [facility] Utilities Answer Date Recorded In [...] place to sleep or slept in a jail (including now)? No 06/04/2023 Sex and Gender Information Value Date Recorded Sex Assigned at Not on file Gender Identity Not on file Sexual Orientation Not on file documented as of this encounter Plan of Treatment Upcoming Encounters Date Type Department Care Team (Late st Contact Info) Description 10/11/2023 10:00 AM EDT Tech [place] [address] Giacomo Queen 10/11/2023 11:15 AM EDT Office Visit [place] [address] Basim Barr MD [facility] [place] [address] 10/18/2023 9:00 AM EDT Office Visit Hematology/Oncology at [address] [phone] Cl Hess MD [facility] [place] [address] Yessi Renee APRN [address] [place] [address] DR HEMATOLOGY AND ONCOLOGY [place], [place] [phone] 10/18/2023 9:30 AM EDT Infusion Hematology Oncology at [address] [phone] 10/24/2023 9:30 AM EDT Scheduled View Only Radiation Oncology at [address] [phone] [address] NurseSt Deutsch 10/24/2023 10:00 AM EDT Office Visit Radiation Oncology at [address] [phone] Bigg Peters MD [address] [place] [address] DR RADIATION ONCOLOGY [place], [place] [address] 11/01/2023 9:00 AM EDT Office Visit Hematology/Oncology at [address] [phone] Cl Hess MD [facility] [place] [address] Yessi Renee APRN [address] [place] [address] DR HEMATOLOGY AND ONCOLOGY [place], [place] [phone] 11/01/2023 9:30 AM EDT Infusion Hematology Oncology at [address] [phone] 12/24/2023 1:00 PM EDT TH Visit (TeleHealth) Radiation Oncology at [address] [phone] Ping Moore PA [facility] DR HEMATOLOGY [place] [address] documented as of this encounter Visit Diagnoses Not on filedocumented in this encounter Care Teams Director Design Relationship Specialty Start Date End Date Alo Carey DO [address] [place] [address] [place] [phone] PCP - General Internal Medicine 08/31/20 07/03/23 documented as of this encounter
--- OUTSIDE RECORDS SUMMARY | 2023-10-06 00:38 | XMS_ITS | Encounter Summary ---
Author Organization [facility] Address [facility] [place] [address] Care Team Providers Care Service Station Helper Name Role Phone Alo Carey DO Primary Care Provider Encounter Details Date Type Department Care Team (Latest Contact Info) Description 07/02/2023 12:14 PM EDT - 07/02/2023 5:13 PM EDT Hospital Encounter [place] [address] Pako Lopez MD [facility] [place] [address] Discharge Disposition: Home Social History Tobacco Use Types Packs/Day Years Used Date Smoking Tobacco: Former Cigarettes 3 1992 Smokeless Tobacco: Never Alcohol Use Standard Drinks/Week Comments Yes 7 (1 standard drink = 0.6 oz pur e alcohol) [facility] Utilities Answer Date Recorded In the past 12 months has Ancestry, gas, oil, or water [employer] threatened to shut off services in your [...] to sleep or slept in a senior care (including now)? No 06/04/2023 Sex and Gender Information Value Date Recorded Sex Assigned at Not on file Gender Identity Not on file Sexual Orientation Not on file documented as of this encounter Last Filed Vital Signs Vital Sign Reading Time Taken Comments Blood Pressure 141/73 07/02/2023 4:10 PM EDT Pulse 57 07/02/2023 1:43 PM EDT Temperature 36.6 ??C (97.9 ??F) 07/02/2023 1:43 PM ED T Respiratory Rate 16 07/02/2023 1:43 PM EDT Oxygen Saturation 98% 07/02/2023 4:10 PM EDT Inhaled Oxygen Concentration - - [...] 20 mg by mouth daily. 05/20/2023 omega 3-pbx-xqb-fish oil 250-350-1,000 mg Capsule Take 1,000 mg [...] (E.C.) Take 81 mg by mouth daily. bvmtdd-kkrltgsn-dfym ase (Creon 24) 24,000-76,000 -120,000 unit capsuleIndications:M [...] uncovered metal stent placed Apr 2023 in [facility], concern for stent occlusion Patient Active Problem [...] Operative Note Patient Name: Wero Sadler : [id number] MR#: [id number] Case Date: 07/02/2023 Surgeon: Surgeon(s) and Role: [...] AM EDT Tech [place] [phone] Giacomo Queen 10/11/2023 11:15 AM EDT Office Visit [place] [phone] Basim Barr MD [facility] [place] [address] 10/18/2023 9:00 AM EDT Office Visit Hematology/Oncology at [address] [phone] Cl Hess MD [facility] [place] [address] Yessi Renee APRN [address] [place] [address] DR HEMATOLOGY AND ONCOLOGY [place], [place] [phone] 10/18/2023 9:30 AM EDT Infusion Hematology Oncology at [address] [phone] 10/24/2023 9:30 AM EDT Scheduled View Only Radiation Oncology at [address] [phone] St La Nena Champagne 10/24/2023 10:00 AM EDT Office Visit Radiation Oncology at [address] [phone] Bigg Peters MD [address] [place] [address] DR RADIATION ONCOLOGY [place], [place] [phone] 11/01/2023 9:00 AM EDT Office Visit Hematology/Oncology at [address] [phone] Cl Hess MD [facility] [place] [address] Yessi Renee APRN [address] [place] [address] DR HEMATOLOGY AND ONCOLOGY [place], [place] [phone] 11/01/2023 9:30 AM EDT Infusion Hematology Oncology at [address] [phone] 12/24/2023 1:00 PM EDT TH Visit (TeleHealth) Radiation Oncology at [address] [phone] Pign Moore PA [facility] DR [place] [address] documented as of this encounter Procedures Procedure Name Priority Date/Time Associated Diagnosis Comments XR ERCP Routine 07/02/2023 3:29 PM EDT RADIOFREQUENCY ABLATION 07/02/2023 2:39 PM EDT Bets- 1-2 weeks EUS/ERCP patient with pancreatic cancer s/p ercp with stent in [facility]. Persistently elevated bilirubin. Ercp, W/Removal Stone, Lonnie/Pancr Ducts ([id number]) 07/02/2023 2:39 PM EDT Bets- 1-2 weeks EUS/ERCP patient with pancreatic cancer s/p ercp with stent in [facility]. Persistently elevated bilirubin. Ercp, Diagnostic ([id number]) 07/02/2023 2:39 PM EDT Bets- 1-2 weeks EUS/ERCP patient with pancreatic cancer s/p ercp with stent in [facility]. Persistently elevated bilirubin. Endoscopic Us Exam, Esoph ([id number]) 07/02/2023 2:39 PM EDT Bets- 1-2 weeks EUS/ERCP patient with pancreatic cancer s/p ercp with stent in [facility]. Persistently elevated bilirubin. ERCP Routine 07/02/2023 2:22 PM EDT documented in this encounter Results * XR ERCP (07/02/2023 3:29 PM EDT) Narrative [facility] - 07/02/2023 3:31 PM EDT See PACS for result report. Pako Lopez MD IM FILM LIBRARY ORD ERABLES [place], [place] * ERCP (07/02/2023 2:22 PM EDT) ERCP [facility] Endoscopy Procedure Date: 07/02/2023 2:22 PM ? Patient Name: Wero Sadler ? N: [id number] ? Date of : 1950 ? Age: 73 ? Order #: [id number] ? Instrument Name: [id number]- [id number] ? Procedure: ? ERCP Indications: ? Elevated [...] A biliary stent was visible on the beck tender film. The ? esophagus was successfully intubated [...] Procedure Code(s): ? --- Professional --- ? 84547, Esophagogastroduod enoscopy, ? flexible, transoral; diagnostic, ? [...] ? prosthesis, initial encounter CPT copyright 2021 [employer]. All rights reserved. The codes documented in this report are preliminary and upon fitter armament review may be revised to meet current [...] Eldon Cohen RN)1535 (Paused - Provider: Fredi Bernabe CRNA - Comment: Switch to gravity)1536 (Restarted - Provider: Fredi Bernabe CRNA) documented in this encounter Care Teams Service Station Helper Relationship Specialty Start Date End Date Alo Carey DO [address] [place] [address] [place] [address] PCP - General Internal Medicine 08/31/20 07/03/23 documented as of this encounter
--- OUTSIDE RECORDS SUMMARY | 2023-10-06 00:38 | XMS_ITS | Encounter Summary ---
Author Organization [facility] [place] [address] Care Team Providers Care Emissions Repair Technician Name Role Phone Alo Carey Primary Care Provider [phone] Encounter Details Date Type Department Care Team (Late st Contact Info) Description 07/02/2023 2:25 PM EDT Ancillary [place] [phone] Social History Tobacco Use Types Packs/Day Years Used Date Smoking Tobacco: Former Cigarettes 963 1992 Smokeless Tobacco: Never Alcohol Use [...] AM EDT Tech [place] [address] Giacomo Queen 10/11/2023 11:15 AM EDT Office [place] [address] Basim Barr MD [facility] [place] [address] 10/18/2023 9:00 AM EDT Office Visit Hematology/Oncology at [address] [phone] Cl Hess MD [facility] [place] [address] Yessi Renee APRN [address] [place] [address] DR HEMATOLOGY AND ONCOLOGY [place], [place] [address] 10/18/2023 9:30 AM EDT Infusion Hematology Oncology at [address] [phone] 10/24/2023 9:30 AM EDT Scheduled View Only Radiation Oncology at [address] [phone] St La Nena Champagne 10/24/2023 10:00 AM EDT Office Visit Radiation Oncology at [address] [phone] Bigg Peters MD [address] [place] [address] DR RADIATION ONCOLOGY [place], [place] [phone] 11/01/2023 9:00 AM EDT Office Visit Hematology/Oncology at [address] [phone] Cl Hess MD [facility] [place] [address] Yessi Renee APRN [address] [place] [address] DR HEMATOLOGY AND ONCOLOGY [place], [place] [phone] 11/01/2023 9:30 AM EDT Infusion Hematology Oncology at [address] [phone] 12/24/2023 1:00 PM EDT TH Visit (TeleHealth) Radiation Oncology at [address] [phone] Ping Moore PA [facility] DR HEMATOLOGY [place] [address] documented as of this encounter Procedures Procedure Name Priority Date/Time Associated Diagnosis Comments XR ERCP Routine 07/02/2023 3:29 PM EDT documented in this encounter Results * XR ERCP (07/02/2023 3:29 PM EDT) Narrative [facility] - 07/02/2023 3:31 PM EDT See PACS for result report. Pako Lopez MD [facility] FILM LIBRARY ORD ERABLES [facility] [place], [place] documented in this encounter Visit Diagnoses Not on filedocumented in this encounter Care Teams Emissions Repair Technician Relationship Specialty Start Date End Date Alo Carey DO [address] [place] [address] [place] [address] PCP - General Internal Medicine 08/31/20 07/03/23 documented as of this encounter
--- OUTSIDE RECORDS SUMMARY | 2023-10-06 00:38 | XMS_ITS | Encounter Summary ---
[place] [address] Care Team Providers Care Shutdown Coordinator Name Role Phone Tristen Hunter MD Primary Care Provider [phone] Encounter Details Date Type Department Care Team (Late st Contact Info) Description 07/05/2023 1:44 PM EDT Anesthesia Event Out[place] [address] Joe March MD [facility] DR [place] [address] Anesthesia Record Procedure Summary Procedure Name Responsible Anesthesiologist Anesthesia Start Time Anesthesia Stop Time LAPAROSCOPY, DIAGNOSTIC, ABDOMEN (WRVU 5.14) (Abdomen) Joe March MD 07/05/23 1344 07/05/23 1554 Events Date Time Event Comment 07/05/2023 1331 1344 AN Verify 1344 Start 1344 An Start Data 1349 An Induction 1351 An Intubation 1354 Anesthesia Ready 1538 Extubation/LMA Out 1541 an stop data 1554 Recovery or ICU Handoff Nisha ent care was transferred to the destination unit staff after review of the patient's medical history, current anesthetic/surgical status and plan, according to the Provider Handoff Checklist. 1554 Stop Meds Name Total IV Lidocaine 100 mg Propofol 150 mg Rocuronium 100 mg PHENYLephrine 240 mcg ePHEDrine 5 mg Ondansetron 4 mg Dexamethasone 4 mg propofol INF 288.88 mg sugammadex 200 mg esmolol 30 mg PHENYLephrine INF 5,440 mcg ceFAZolin 2 g lactated ringers 800 mL * Agents Name O2 * Blood No blood administrations on file. Lines, Drains, and Airways Type Details Placement Removal Incision 07/05/23; 1426; Righ t; chest 07/05/23 1426 by Laura Walsh RN Implanted Port 07/05/23; 1440; Sing le Lumen; power injectable port (ct port with attachable chronoflex polyurethane catheter.); other (see comments) (right chest wall.); superior vena cava; placement verified by x-ray; charu balbuena 07/05/23 1440 by Laura Walsh RN Incision 07/05/23; 1508; abdo men; laparoscopic punctures (specify); s/p diagnostic laparoscopy, trocar sites x 2 07/05/23 1508 by Laura Walsh RN PIV 07/05/23; 1222; tbae-tqe-stdwny catheter system; 20 gauge; median cubital vein (antecubital fossa), left; Anatomical Landmarks; Savannah Ma; distraction, intradermal injection; 0; 07/05/23; 1639 07/05/23 1222 by Savannah Jamison RN 07/05/23 1639 by Judi Carmichael RN ETT Mask Ventilation: Ankush riley (1); ETT Type: Cuffed, Oral; ETT Size: 7.5 mm; Mac Blade: 4; Notes: Asleep, Pre-O2; Attempts: 1; Laryngoscopy Grade: 2; ETT Placement Verified By: Capnometry, Visual; Secured at Teeth: 22 cm; Inserted by: asim; Removal Date: 07/05/23; Removal Time: 153707/05/23 1351 by Rafael Marinelli MD 07/05/23 1538 by Joe March MD documented in this encounter Social History Tobacco Use Types Packs/Day Years Used Date Smoking Tobacco: Former Cigarettes 4 30 1 1992 Smokeless Tobacco: Never Alcohol Use Standard Drinks/Week Comments Yes 7 (1 standard drink = 0.6 oz pur e alcohol) [facility] Utilities Answer Date Recorded In the past 12 months has Dogec[employer], gas, oil, or water [employer] threatened to shut off services in your [...] OR Notes * Anesthesia Postprocedure Evaluation - Rafael Marinelli MD - 07/05/2023 3:54 PM EDT Department of Anesthesiology Post-procedure Note Patient: Wero Sadler Procedure Summary Date: 07/05/23 Room / Location: [facility] OR [address] [place] [address] OSC Anesthesia Start: 1344 Anesthesia Stop: 1554 Procedures: LAPAROSCOPY, DIAGNOSTIC, ABDOMEN (WRVU 5.14) (Abdomen) MARIO\AMELIA.CATHETER,TUNNELED, WITH SQ PORT OR PUMP OVER 5YR (WRVU 5.79) (Chest) FLUOROSCOPY (WRVU 0.3) Diagnosis: (PANCREAS CANCER) Surgeons: Charu Balbuena MD Responsible Provider: Joe March MD Anesthesia Type: general ASA Status: 3 All Anesthesia Providers: Anesthesiologist: Joe March MD Accounting Manager: Rafael Marinelli MD Vitals Value Taken Time BP 103/57 07/05/23 1542 Temp Pulse 54 07/05/23 1542 Resp 16 07/05/23 1542 SpO2 100 % 07/05/23 1542 Pain Level Patient Location: PACU/[facility] Level of Consciousness: Awake and Alert Pain Management: Satisfactory Analgesia PONV: None Cardiovascular Status: At Baseline and Hemodynamically Stable Respiratory Status: At Baseline and Room Air Postoperative Fluid Status: Possible Anesthetic Complications: NONE apparent at time of evaluation Final Primary Anesthesia Type: General (The anesthetic type performed was the same as planned.) Comments: Rafael Marinelli MD * Anesthesia Preprocedure Evaluation - Joe March MD - 07/04/2023 8:23 PM EDT Pre-Anesthesia Evaluation for: Wero Sadler a 73 y.o. male. Procedure(s): LAPAROSCOPY,SURGICAL,WITH BIOPSY, SINGLE OR MULTIPLE (WRVU 5.44) MARIO\AMELIA.CATHETER,TUNNELED, WITH SQ PORT OR PUMP OVER 5YR (WRVU 5.79) Patient Active Problem List Diagnosis Date Noted [...] ??? Colon adenocarcinoma 2009 recieved chemo in [place] ??? Coronary artery disease ??? Coronary artery [...] 20.72) performed by Ismael Wu MD at [facility] MAIN OR ??? PRO ARTHROPLASTY ACETABULAR/PROX FEM PROSTC AGRFT/ALGRFT Right 11/17/2021 TOTAL HIP ARTHROPLASTY - POSTERIOR (WRVU 20.72) performed by Ismael Wu MD at [facility] MAIN OR ??? PRO ENDOSCOPIC US EXAM, ESOPH N/A 07/02/2023 UPPER EUS- ENDOSCOPIC ULTRASOUND (WRVU 3.47) performed by Pako Lopez MD at [facility] ENDOSCOPY ??? PRO ERCP, W/REMOVAL STONE, TARYN/PANCR DUCTS 07/02/2023 ERCP W/REMOVAL CALCULI/DEBRIS FROM BILARY/PANCREATIC DUCT(S) (WRVU 6.63) performed by Pako Lopez MD at [facility] ENDOSCOPY ??? PRO ERCP,DIAGNOSTIC N/A 07/02/2023 ERCP (WRVU 5.85) performed by Pako Lopez MD at [facility] ENDOSCOPY ??? PRO EXPLORATION NOT FOLLOWED BY SURG NECK ARTERY Right 07/14/2021 @EXPLORATION NOT FOLLOWED BY SURGICAL REPAIR, ARTERY; NECK (CAROTID OR SUBCLAVIAN) (WRVU 9.19) performed by Basim Barr MD at [facility] MAIN OR ??? PRO LASER VAPORIZATION SURGERY PROSTATE, COMPLETE Midline 02/02/2021 CYSTO, LASER TURP (WRVU 12.15) performed by Cayetano Engle MD at [facility] MAIN OR ??? PRO PLACE TRANSCATHETER STENT, CCA W EMBOLIC PROECT Right 07/14/2021 @TRANSCATH INTRAVASCULAR STENT,CAROTID,PERC,W\EMBOLIC PROT. (WRVU 18) performed by Basim Barr MD at [facility] MAIN OR Social History Tobacco Use ??? [...] Use Not Currently Allergies Allergen Reactions ??? Belinostat Other (See Comments) UGT1A1 Poor Metabolizer. See Clinical Pharmacist Note from 07/04/23 for dosing recommendations. ??? Cyclobenzaprine Other (See Comments) Extreme moodiness Other reaction(s): Other (See Comments) Extreme moodiness ??? Irinotecan Other (See Comments) UGT1A1 Poor Metabolizer. See Clinical Pharmacist Note from 07/04/23 for dosing recommendations. ??? Nilotinib Other (See Comments) UGT1A1 Poor Metabolizer. See Clinical Pharmacist Note from 07/04/23 for information. ??? Other [Unclassified Drug] Other (See Comments) Had reaction to a dye used during vascular procedure at [facility] in [place]: shaking Has tolerated MRI and CT contrast. ??? Pazopanib Other (See Comments) UGT1A1 Poor Metabolizer. See Clinical Pharmacist Note from 07/04/23 for information. ??? Sacituzumab Govitecan-Hziy Other (See Comments) UGT1A1 Poor Metabolizer. See Clinical Pharmacist Note from 07/04/23 for dosing recommendations. Medications: MAR and/or home medications have been reviewed. Physical Exam: Preprocedure Vitals Current as of 07/04/232022 No BP, pulse, respiration, SpO2, or temperature recorded. Height: Weight: BMI: IBW: Airway Assessment: Mallampati: II TM distance: >3 FB Neck ROM: full Cardiovascular Assessment: system normal Pulmonary Assessment: breath sounds clear to auscultation pulmonary exam normal Dental Assessment: - normal exam (+) upper dentures and lower dentures Misc Assessment: Last Filed Perioperative Cognitive Screening Value Time User AD8 Total Score: 0 05/04/2021 11:00 AM Delia Champagne RN AD8 Informant: Other Informant 05/04/2021 11:00 AM Delia Champagne RN 4AT TOTAL Score: 1 07/14/2021 1:30 PM Taylor Rivera RN CFS Frailty Score: 4 05/04/2021 11:00 AM Ahsley Salazar RN Anesthesia Plan: ASA 3 general, with a(n) intravenous induction 73 y.o. male with CAD s/p CABGx3 (2019, on Imdur and carvedilol), CVA s/p left CEA 11/2019 (on aspirin/clopidogrel), HTN (lisinopril, amlodipine), AION of right eye, prostate cancer s/p TURP, colorectal cancer, OLGA on CPAP, former smoker (120 pack years), PAD, DM2, and pancreatic cancer. He is also blind. He is scheduled for laparoscopy and biopsy for further staging of pancreatic cancer and placement of mediport. Anesthetic History: tolerated GA in past; grade II DL Allergies reviewed Labs reviewed TTE 2023: Interpretation Summary Left ventricle is of normal size with mild increased wall thickness. Left ventricular systolic function is normal. LV ejection fraction is estimated visually at 65-70%. No segmental wall motion abnormalities. Normal right ventricle. No significant valvular abnormalities. No prior studies available for comparison. Carotid duplex 2022: RIGHT: A thin layer of circumferential plaque is present in the common carotid artery causing minimal stenosis. There is smooth plaque in the proximal internal carotid artery causing <15% stenosis when compared to the more distal internal carotid artery. Patent CCA to ICA stent. The bifurcation level is in the mid neck. LEFT: There is plaque in the common carotid artery causing <50% stenosis by electronic calipers. There is smooth plaque in the proximal internal carotid artery causing 16-49% stenosis when compared to the more distal internal carotid artery. The proximal ICA appears ectatic measuring 1.0 cm in diameter. The bifurcation level is in the mid neck. Vertebral Artery Data: Patent vertebral arteries with normal antegrade Doppler waveforms and velocities bilaterally. Anesthetic Plan: GA w/ ETT Henry Marinelli MD 07/04/2023 I have discussed the case with the resident, reviewed the pertinent details in the chart, interviewed and examined the patient. I agree with the documented history, exam findings and management plan. Joe aMrch MD Region - Other Informed Consent: Anesthetic plan and risks discussed with patient. Plan discussed with attending and resident. Anesthesia Screening documented in this encounter Plan of Treatment Upcoming Encounters Date Type Department Care Team (Late st Contact Info) Description 10/11/2023 10:00 AM EDT Tech [place] [address] Giacomo Queen 10/11/2023 11:15 AM EDT Office Visit [place] [address] Basim Barr MD [facility] [place] [address] 10/18/2023 9:00 AM EDT Office Visit Hematology/Oncology at [address] [phone] Cl Hess MD [facility] [place] [address] Yessi Renee [address] HEMATOLOGY AND ONCOLOGY [place], [place] [phone] 10/18/2023 9:30 AM EDT Infusion Hematology Oncology at [address] [phone] 10/24/2023 9:30 AM EDT Scheduled View Only Radiation Oncology at [address] [phone] Rad NurseSt Deutsch 10/24/2023 10:00 AM EDT Office Visit Radiation Oncology at [address] [phone] Bigg Peters MD [address] [place] [address] DR RADIATION ONCOLOGY [place], [place] [address] 11/01/2023 9:00 AM EDT Office Visit Hematology/Oncology at [address] [phone] Cl Hess MD [facility] [place] [address] Yessi Renee [address] HEMATOLOGY AND ONCOLOGY [place], [place] [address] 11/01/2023 9:30 AM EDT Infusion Hematology Oncology at [address] [phone] 12/24/2023 1:00 PM EDT TH Visit (TeleHealth) Radiation Oncology at [address] [phone] Ping Moore PA [facility] HEMATOLOGY [place] [address] documented as of this encounter Visit Diagnoses Not on filedocumented in this encounter Administered Medications Inactive Administered Medications - up to 3 most recent administrations Medication Order MAR Action Action Date Dose Rate Site ceFAZolin (Ancef) (100 mg/mL) injection solution Intravenous, PRN, Starting on Sat07/05/23 at 1413, Until Sat07/05/23 at 1554, Anesthesia Intra-op, Routine Given 07/05/2023 2:13 PM EDT 2 g dexAMETHasone (Decadron) injection Intravenous, PRN, Starting on Sat07/05/23 at 1403, Until Sat07/05/23 at 1554, Anesthesia Intra-op, Routine Given 07/05/2023 2:03 PM EDT 4 mg ePHEDrine sulfate (5 mg/mL) multi-dose injection Intravenous, PRN, Starting on Sat07/05/23 at 1447, Until Sat07/05/23 at 1554, Anesthesia Intra-op, Routine Given 07/05/2023 2:47 PM EDT 5 mg esmoloL (Brevibloc) (10 mg/mL) injection Intravenous, PRN, Starting on Sat07/05/23 at 1349, Until Sat07/05/23 at 1554, Anesthesia Intra-op, Routine Given 07/05/2023 1:49 PM EDT 30 mg lactated ringers infusion Intravenous, CONTINUOUS PRN, Starting on Sat07/05/23 at 1344, Until Sat07/05/23 at 1554, Anesthesia Intra-op New Bag 07/05/2023 1:50 PM EDT New Bag 07/05/2023 1:44 PM EDT lidocaine (pf) (Xylocaine) (20 mg/mL) 2% injection syringe Intravenous, PRN, Starting on Sat07/05/23 at 1349, Until Sat07/05/23 at 1554, Anesthesia Intra-op, Routine Given 07/05/2023 1:49 PM EDT 100 mg ondansetron (pf) (Zofran) (2 mg/mL) injection Intravenous, PRN, Starting on Sat07/05/23 at 1403, Until Sat07/05/23 at 1554, Anesthesia Intra-op, Routine Given 07/05/2023 2:03 PM EDT 4 mg PHENYLephrine (Jose-Synephrine) (80 mcg/mL) in sodium chloride 0.9% 250 mL infusion Intravenous, CONTINUOUS PRN, Starting on Sat07/05/23 at 1354, Until Sat07/05/23 at 1554, Anesthesia Intra-op, Routine Rate/Dose Change 07/05/2023 3:14 PM EDT 40 mcg/min 30 mL/hr New Bag 07/05/2023 1:54 PM EDT 60 mcg/min 45 mL/hr PHENYLephrine in NS (PF) (JOSE-SYNEPHRINE) 0.8 mg/10 mL (80 mcg/mL) multi-dose injection Syringe Intravenous, PRN, Starting on Sat07/05/23 at 1418, Until Sat07/05/23 at 1554, Anesthesia Intra-op, Routine Given 07/05/2023 2:47 PM EDT 80 mcg Given 07/05/2023 2:27 PM EDT 80 mcg Given 07/05/2023 2:18 PM EDT 80 mcg propofoL (Diprivan) (10 mg/mL) infusion Intravenous, CONTINUOUS PRN, Starting on Sat07/05/23 at 1351, Until Sat07/05/23 at 1554, Anesthesia Intra-op, Routine Rate/Dose Change 07/05/2023 2:22 PM EDT 30 mcg/kg/min 14.364 mL/hr New Bag 07/05/2023 1:51 PM EDT 50 mcg/kg/min 23.94 mL/h r propofoL (Diprivan) 10 mg/mL bolus injection (Anesthesia) Intravenous, PRN, Starting on Sat07/05/23 at 1349, Until Sat07/05/23 at 1554, Anesthesia Intra-op Given 07/05/2023 1:49 PM EDT 150 mg rocuronium (Zemuron) (10 mg/mL) multi-dose injection Intravenous, PRN, Starting on Sat07/05/23 at 1349, Until Sat07/05/23 at 1554, Anesthesia Intra-op, Routine Given 07/05/2023 2:18 PM EDT 20 mg Given 07/05/2023 1:49 PM EDT 80 mg sugammadex (Bridion) 100 mg/mL injection Intravenous, PRN, Starting on Sat07/05/23 at 1532, Until Sat07/05/23 at 1554, Anesthesia Intra-op, Routine Given 07/05/2023 3:32 PM EDT 200 mg documented in this encounter Care Teams Shutdown Coordinator Relationship Specialty Start Date End Date Tristen Hunter MD [address] [place] [address] [place] [address] PCP - General Family Medicine 07/04/23 documented as of this encounter
--- OUTSIDE RECORDS SUMMARY | 2023-10-06 00:38 | XMS_ITS | Encounter Summary ---
Author Organization [facility] Address [facility] [place] [address] Care Team Providers Care Senior Environmental Consultant Name Role Phone Alo Carey Primary Care Provider Encounter Details Date Type Department Care Team (Late st Contact Info) Description 06/23/2023 Orders Only Hematology [place] [address] Real Cardenas V, [facility] Hematology/[place] [address] Malignant neoplasm of head of pancreas; Malignant neoplasm of prostate Social History Tobacco Use Types Packs/Day Years Used Date Smoking Tobacco: Former Cigarettes 4 30 1 3 - 1992 Smokeless Tobacco: Never Alcohol Use Standard Drinks/Week Comments Yes 7 (1 standard drink = 0.6 oz pur e alcohol) [facility] Utilities Answer Date Recorded In the past 12 months has [employer], gas, oil, or water [employer] threatened to shut off services in your [...] a nursing home (including now)? No 06/04/2023 Sex and Gender Information Value Date Recorded Sex Assigned at Not on file Gender Identity Not on file Sexual Orientation Not on file documented as of this encounter Plan of Treatment Upcoming Encounters Date Type Department Care Team (Late st Contact Info) Description 10/11/2023 10:00 AM EDT [place] [address] Giacomo Queen 10/11/2023 11:15 AM EDT Office Visit [place] [address] Basim Barr MD [facility] [place] [address] 10/18/2023 9:00 AM EDT Office Visit Hematology/Oncology at [address] [phone] Cl Hess MD [facility] [place] [address] Yessi Renee APRN [address] [place] [address] DR HEMATOLOGY AND ONCOLOGY [place], [place] [id number] 10/18/2023 9:30 AM EDT Infusion Hematology Oncology at [address] [phone] 10/24/2023 9:30 AM EDT Scheduled View Only Radiation Oncology at [address] [phone] Rad Nurse, [facility] 10/24/2023 10:00 AM EDT Office Visit Radiation Oncology at [address] [phone] Bigg Peters MD [address] [place] [address] DR RADIATION ONCOLOGY [place], [place] [id number] 11/01/2023 9:00 AM EDT Office Visit Hematology/Oncology at [address] [phone] Cl Hess MD [facility] [place] [address] Yessi Renee APRN [address] [place] [address] DR HEMATOLOGY AND ONCOLOGY [place], [place] [phone] 11/01/2023 9:30 AM EDT Infusion Hematology Oncology at [address] [phone] 12/24/2023 1:00 PM EDT TH Visit (TeleHealth) Radiation Oncology at [address] [phone] Ping Moore PA [facility] HEMATOLOGY [place] [address] Scheduled Orders Name Type Priority Associated Diagnoses Orde r Schedule Miscellaneous Lab request Lab Routine Malignant neoplasm of head of pancreas Malignant neoplasm of prostate Expected: 07/12/2023, Expires: 01/11/2024 documented as of this encounter Visit Diagnoses Diagnosis Malignant neoplasm of head of pancreas Malignant neoplasm of prostate documented in this encounter Care Teams Senior Environmental Consultant Relationship Specialty Start Date End Date Alo Carey DO [address] [place] [address] [place] [phone] PCP - General Internal Medicine 08/31/20 07/03/23 documented as of this encounter
--- OUTSIDE RECORDS SUMMARY | 2023-10-06 00:38 | XMS_ITS | Encounter Summary ---
Author Organization [facility] [place] [address] Care Team Providers Care Assistant Spa Director Name Role Phone Tristen Hunter MD Primary Care Provider [phone] Encounter Details Date Type Department Care Team (Late st Contact Info) Description 07/05/2023 1:30 PM EDT - 07/05/2023 3:15 PM EDT Surgery [place] [address] Charu Balbuena MD [facility] [place] [address] LAPAROSCOPY, DIAGNOSTIC, ABDOMEN (WRVU 5.14) Social History Tobacco Use Types Packs/Day Years Used Date Smoking Tobacco: Former Cigarettes 4 30 1 963 - 1992 Smokeless Tobacco: Never Alcohol Use Standard Drinks/Week Comments Yes 7 (1 standard drink = 0.6 oz pur e alcohol) [facility] Utilities Answer Date Recorded In the past 12 months has [employer] electric, gas, oil, or water company threatened [...] Sign Reading Time Taken Comments Blood Pressure 115/63 07/05/2023 12:11 PM EDT Pulse 53 07/05/2023 12:11 PM EDT Temperature 36 ??C (96.8 ??F) 07/05/2023 12:11 PM EDT Respiratory Rate 16 07/05/2023 12:11 PM EDT Oxygen Saturation 99% 07/05/2023 12:11 PM EDT Inhaled Oxygen Concentration - - Weight 79.8 kg (176 lb) 07/05/2023 12:03 PM EDT Height 180.3 cm (5' 11) 07/05/2023 12:03 PM EDT Body Mass Index 24.55 07/05/2023 12:03 PM EDT documented in this encounter Discharge Instructions * Discharge Instructions* Judi Carmichael RN - 07/05/2023 3:35 PM EDT General Anesthesia Discharge Instructions Go home and rest. You may be sleepy for several hours. Take it easy as sudden position changes may cause nausea and/or dizziness. Use caution on stairs. Do not smoke if you are alone. Follow a light to regular diet as tolerated today. If nausea occurs, start with clear liquids, and progress slowly to a regular diet. Do not drive, operate machinery, drink alcoholic beverages or make any legal decisions after havinggeneral anesthesia. The medications given change your reaction time and alter your judgement. IV site -- slight redness is normal, you can use warm compresses. If tenderness and redness increases or foul drainage occurs, please contact your M.D. Patients who have had endotracheal tubes/LMA (tubes used by the anesthesia staff to ensure a safe airway during your operation) may have a sore throat. This is normal and cold liquids or soothing lozenges will help ease this discomfort. Narcotic pain medications can cause constipation, please ask the surgeons office what they recommend for prevention of this. Some non-pharmaceutical means of constipation prevention include increasing intake of fluids, eating more fruits and vegetables as well as fruit juices. If you are uncomfortable and/or unable to urinate within 8 hours of discharge and it is before 5 pm, call your physician. If it is after 5pm go to the closest emergency room or call the hospital shotgun shell loading machine operator at [phone] and ask for physician construction project coordinator covering for your physician. Questions or problems after 5pm or on a weekend: Call the [facility] shotgun shell loading machine operator at and ask for the physician construction project coordinator covering for your doctor. * Patient Instructions* Charu Balbuena MD - 07/05/2023 1:38 PM EDT OK to shower. You have dermabond - 'superglue' covering the incisions which will start to peel off in 1-2 weeks. Ok to peel it off once it starts to peel away. Take Extra strength Tylenol 1-2 tablets everty 6 hours on a scheduled basis for the next three daysto help with pain. You can also take, while taking the Tylenol, Ibuprofen as needed for postop pain. Please follow up with Dr. Hess as planned to get started on chemotherapy If you have any questions about the incisions, any pain or nausea or other concerns related to the surgery please call the surgery clinic nurses at [phone]. If you have any concerns at night or when the clinic is closed then please call the main [facility] number and ask to speak with the general surgery resident construction project coordinator. That number is [phone]. Dr. Balbuena will see you back after you finish the neoadjuvant therapy. documented in this encounter Medications at Time [...] 20 mg by mouth daily. 05/20/2023 omega 5-uqe-dus-fish oil 250-350-1,000 mg Capsule Take 1,000 mg [...] (E.C.) Take 81 mg by mouth daily. vogohp-rtkyrpmg-zizz ase (Creon 24) 24,000-76,000 -120,000 unit capsuleIndications:M [...] 07/31/2022 08/20/2023 documented as of this encounter Progress Notes * Judi Carmichael RN - 07/05/2023 4:51 PM EDT Patient dressed for discharge. No pain, nausea, drainage. Pt discharged per . He is legally blindand arrived via . No concerns voiced. * Judi Carmichael RN - 07/05/2023 4:31 PM EDT Discharge instructions and medications reviewed with patient and his , Amy. All questions answered and written copy sent home with patient. Patient ambulated to car for discharge accompanied by[facility] staff member. V/u of all instructions. No concerns voiced. No RX to be picked up. No pain, nausea or drainage. CXR read by Dr Balbuena prior to discharge. * Judi Carmichael RN - 07/05/2023 4:[address] Balbuena at seeing pt documented in this encounter H&P Notes * Charu Balbuena MD - 07/05/2023 1:01 PM EDT Patient Name: Wero Sadler Patient Age: 73 y.o. Birthdate: 1950 Admit date: 07/05/2023 Attending Physician: Charu Balbuena MD I saw Mauri this afternoon- he is with his -Amy. Since I saw him he had an ERCP with stent replacement and endoscopic RFA. Informed consent was obtained for laparoscopy staging and mediport placement. Ok to proceed. Roberto Balbuena MD 07/05/2023 1:04 PM documented in this encounter Miscellaneous Notes * Op Note - Charu Balbuena MD - 07/05/2023 2:26 PM EDT [facility] Operative Note Patient Name: Wero Sadler : [id number] MR#: [id number] Case Date: 07/05/2023 Surgeon: Surgeon(s) and Role: * Charu Balbuena MD - Primary Preoperative diagnosis: PANCREAS CANCER Postoperative diagnosis: PANCREAS CANCER Procedure(s) (LRB): LAPAROSCOPY, DIAGNOSTIC, ABDOMEN (WRVU 5.14) (N/A) MARIO\AMELIA.CATHETER,TUNNELED, WITH SQ PORT OR PUMP OVER 5YR (WRVU 5.79) (N/A) FLUOROSCOPY (WRVU 0.3) (N/A) Findings: There was no evidence of metastatic disease. He had an adhesion between the omentum and his prior midline incision from his colectomy surgery but other than that we were able to get a good look around at all 4 quadrants and the surface of the liver. No nodules. Trace amount of straw-colored ascites above the right liver. No biopsies were performed. An 8 Beninese Mediport PowerPort was placed successfully via the right subclavian vein and placement was confirmed with fluoroscopy. Anesthesia: General Estimated Blood Loss: Minimal Specimens removed during surgery: None Drains: * No LDAs found * Surgical Closure: Primary Closure - skin incision is completely closed without any wires, amy, drains or other devices Disposition: awakened from anesthesia, extubated and taken to the recovery room in a stable condition, having suffered no apparent untoward event. Condition: doing well without problems (Please see the Surgical Encounter Summary for any Implant and Specimen details pertinent to this patient.) HPI/Surgical Indications: Biopsy-proven, borderline resectable pancreatic cancer. Laparoscopy to complete the staging workup and then Mediport placement to facilitate getting started with systemic chemotherapy. Procedure Description: Mr. Sadler was identified in the preop holding area and taken to the operating room and placed supine on the operating table. Monitoring lines and Venodyne boots were placed. General anesthesia was induced and he was intubated without complication. An oralgastric tube was placed. IV antibiotics was given (ancef) prior to initiating the procedure. The right neck and upper chest was prepped with ChloraPrep as well as the abdomen in the usual sterile fashion. We proceeded to drape the neck. Ioban strips were used to secure the drapes to the skin. We first placed the sterile drapes for the abdomen, diagnostic laparoscopy part of the procedure. We then placed the sterile drapes for the Mediport portion of the procedure. The towel were secured to the skin with Ioban strips. A second sterile drape was then placed over the initial abdomen part of the sterile drape that it could be sequentially removed after completion of the Mediport part of the procedure maintaining sterile field in both the neck/chest as well as the abdomen. The mediport portion of the procedure was started. We selected an 8 Fr POWERPORT mediport. Quarter percent Marcaine was used to create a local block just beneath the band in the right clavicle and the anterior chest wall. The local was injected in the subcutaneous space as well as along the periosteum of the right clavicle. We then created an obliquely oriented 3-4 cm incision beneath the clavicle in the anterior chest. Dissection was carried down with cautery to expose the chest wall fascia. He was then positioned into the trendelenberg position and using Seldinger technique the right subclavian vein was cannulated (1st attempt). There was nonpulsatile dark blood return consistent with venous cannulation. We connected the needle to IV tubing to confirm venous placement without pulsation.A wire was then introduced and the needle was removed. With the wire in place we then brought in the C-arm to perform fluoroscopy and confirm that the wire was in the left subclavian vein and then passed down through the SVC into the left atrium. When successful cannulation and wire placement was confirmed with fluoroscopy the introducer was inserted over the wire and then the introducer with thepeel-away sheath was inserted into the subclavian vein over the wire. The introducer and wire were removed to allow the catheter to be placed down the peel-away sheath and into the subclavian vein. Th e peel-away sheath was removed and the mediport was placed within the small subcutaneous pocket. Garfield connected the catheter to the Mediport securing it with the small plastic hub. Before placing the Mediport within the pocket we flushed it with the De Anda needle and it flushed easily as well as blood return was easy to aspirate. The C-arm was then brought back into the field and fluoroscopy confirmed the catheter tip just outside the right atrium in the superior vena cava. The port was stiched to the chest wall fascia using an 0- Vicryl stich. Using the De Anda needle the port was accessed and there was good aspiration of blood and it flushed nicely with heparinized saline (1000 units in 100 cc of saline- 10 u/ml). We then proceeded to close the incision. Several interrupted deep dermal 3-0 Vicryl stitches were placed to reapproximate the skin and then finally the skin was closed with arunning 4-0 Monocryl subcuticular stitch. Final fluoroscopy confirmed placement with the catheter sh owing no kinks, the port flush on the abdominal wall and the tip in the SVC. The port was then flushed with a De Anda needle and heparinized saline (1000 units in 10 ml of saline -100 units per cc). Dermabond was placed over the mediport incision. Next, the abdominal portion of the operation was started after we removed and reflected the Mediport drapes cephalad to expose the underlying drapes for the abdominal portion of the operation. A 5mm Optivue port and zero degree camera were used to gain access to the abdomen under direct visualization without injury to underlying structures in the left mid/lateral abdomen. Once pneumoperitoneum was obtained. A single additional 5 mm port was placed under direct visualization after local injection into the right/lateral mid abdomen. Laparoscopic exploration showed no evidence of metastatic disease-see findings detailed above. He had an adhesion between his omentum and the anterior abdominal wall from his prior midline laparotomyscar which we left intact. We were able though to navigate around the adhesion and get a good look in all 4 quadrants including the surface of the liver and the undersurface of the right liver as well as the left lateral segment and all looks good with no evidence of nodules. No omental or peritoneal nodules. He had a trace amount of straw- colored ascites above the right liver. The 5 mm ports were removed under direct visualization with no bleeding noted. The pneumoperitoneumwas completely evacuated prior to removing the last port. Finally the skin incisions were reapproximated with a 4-0 Monocryl subcuticular stitch. Dermabond was used to cover the port incisions. Mr. Sadler was awakened from anesthesia, extubated in the OR and taken to the recovery room in hemodynamically stable condition. I was present from start to finish. Attestation: Case Date: 07/05/2023 I performed this procedure without the involvement of a resident. CHARU BALBUENA MD 07/05/2023 documented in this encounter Plan of Treatment Upcoming Encounters Date Type Department Care Team (Late st Contact Info) Description 10/11/2023 10:00 AM EDT Tech [place] [phone] Giacomo Queen 10/11/2023 11:15 AM EDT Office Visit [place] [address] Basim Barr MD [facility] [place] [address] 10/18/2023 9:00 AM EDT Office Visit Hematology/Oncology at [address] [phone] Cl Hess MD [facility] [place] [address] Yessi Renee [address] HEMATOLOGY AND ONCOLOGY [place], [place] [phone] 10/18/2023 9:30 AM EDT Infusion Hematology Oncology at [address] [phone] 10/24/2023 9:30 AM EDT Scheduled View Only Radiation Oncology at [address] [phone] Rad Nurse, [facility] 10/24/2023 10:00 AM EDT Office Visit Radiation Oncology at [address] [phone] Bigg Peters MD [address] [place] [address] DR RADIATION ONCOLOGY [place], [place] [id number] 11/01/2023 9:00 AM EDT Office Visit Hematology/Oncology at [address] [phone] Cl Hess MD [facility] [place] [address] Yessi Renee [address] HEMATOLOGY AND ONCOLOGY [place], [place] [address] 11/01/2023 9:30 AM EDT Infusion Hematology Oncology at [address] [phone] 12/24/2023 1:00 PM EDT TH Visit (TeleHealth) Radiation Oncology at [address] [phone] Ping Moore PA [facility] DR HEMATOLOGY [place] [address] documented as of this encounter Procedures Procedure Name Priority Date/Time Associated Diagnosis Comments XR CHEST ONE VIEW Routine 07/05/2023 4:1 1 PM EDT XR FLUORO NO RAD <1HR - OR USE Routine 07/05/2023 2:50 PM EDT Fluoroscopy Exam Up To 1 Hr [facility] ([id number]) Yes 07/05/2023 1:44 PM EDT PANCREAS CANCER Insert Tunneled CV Cath w SubQ Port, Age 5 Yrs or Older ([id number]) Yes 07/05/2023 1:44 PM EDT PANCREAS CANCER Lap, Diagnostic Abdomen ([id number]) Yes 07/05/2023 1:44 PM EDT PANCREAS CANCER POCT GLUCOSE Routine 07/05/2023 12:32 PM EDT documented in this encounter Results * XR Chest One View (07/05/2023 4:11 PM EDT) [employer] WORKSTATION ID [id number] DH RAD Anatomical Region Laterality Modality Chest N/A Digital Radiogra phy Impressions 07/06/2023 7:33 AM EDT No pneumothorax. Thank you for letting us participate in the care of this patient. ??If you are a health care provider and have any questions regarding this report, please contact the number below. ??For patients who have questions please contact the health caretaker grounds that requested your imaging first. ? Electronically signed by: Shelly Lombardo MD, [facility] ([phone]), at 07/06/2023 7:33 AM Narrative 07/06/2023 7:33 AM EDT EXAMINATION: XR CHEST ONE VIEW CLINICAL HISTORY: Recovery room CXR to eval mediport placement TECHNIQUE: 1 view of the chest COMPARISON: July 18, 2021 FINDINGS: Interval placement right subclavian MediPort. Catheter tip at the superior vena cava. Catheter intact. Trace right pleural effusion. No pneumothorax. No consolidation. Procedure Note Shelly Lombardo MD - 07/06/2023 EXAMINATION: XR CHEST ONE VIEW CLINICAL HISTORY: Recovery room CXR to eval mediport placement TECHNIQUE: 1 view of the chest COMPARISON: July 18, 2021 FINDINGS: Interval placement right subclavian MediPort. Catheter tip at the superiorvena cava. Catheter intact. Trace right pleural effusion. No pneumothorax. No consolidation. IMPRESSION No pneumothorax. Thank you for letting us participate in the care of this patient. If youare a health care provider and have any questions regarding this report,please contact the number below. For patients who have questions please contactthe health caretaker grounds that requested your imaging first. Electronically signed by: Shelly Lombardo MD, [facility]([phone]), at 07/06/2023 7:33 AM Charu Balbuena MD IMG DX ORDERABLES * XR Fluoro No Rad <1Hr - OR Use (07/05/2023 2:50 PM EDT) Narrative Dicom, Auditing User - 07/05/2023 3:10 PM EDT This exam is auto-finalizing. No interpretation was done. Charu REYG FLUORO ORDERAB LES * POCT Glucose (07/05/2023 12:32 PM EDT) [facility] Signature Glucose, POC 160 65 - 199 mg/dL [facility] Comment: Supplemental ranges: <140 mg/dL before meals <180 mg/dL all other times of the day Blood 07/05/2023 12:3 2 PM EDT 07/05/2023 12:32 PM EDT Charu Balbuena MD POINT OF CARE TEST ORDERABLES [facility] [place] [address] documented in this encounter Visit Diagnoses Not on filedocumented in this encounter Administered Medications Inactive Administered Medications - up to 3 most recent administrations Medication Order MAR Action Action Date Dose Rate Site BUpivacaine (pf) (Marcaine) (2.5 mg/mL) 0.25% injection PRN, Starting on Sat07/05/23 at 1425, Until Sat07/05/23 at 1853, Intra-Operative (Intra-Procedure), Routine Given 07/05/2023 3:11 PM EDT 3 mLs 19- Surgical Site Given 07/05/2023 3:05 PM EDT 3 mLs 19 - Surgical Site Given 07/05/2023 2:43 PM EDT 2.5 mLs 19 - Surgical Site heparin (pf) (porcine) (100 units/mL) flush 5 mL syringe PRN, Starting on Sat07/05/23 at 1500, Until Sat07/05/23 at 1853, Intra-Operative (Intra-Procedure), Routine Given 07/05/2023 3:00 PM EDT 500 Units heparin (porcine) (1,000 units/mL) injection PRN, Starting on Sat07/05/23 at 1445, Until Sat07/05/23 at 1853, Intra-Operative (Intra-Procedure), Routine Given 07/05/2023 2:45 PM EDT 1,000 Units 19- Surgical Site documented in this encounter Active and Recently Administered Medications Times are shown in EDT. PRN Medication Order 07/03/2023 07/04/2023 07/05/2023 BUpivacaine (pf) (Marcaine) (2.5 mg/mL) 0.25% injection (CANCELED) PRN, Starting on Sat07/05/23 at 1425, Until Sat07/05/23 at 1853, Intra-Operative (Intra-Procedure), Routine 1425 (Given - Provid er: Charu Balbuena MD)1443 (Given - Provider: Charu Balbuena MD)1505 (Given - Provider: Charu Balbuena MD)1511 (Given - Provider: Charu Balbuena MD) heparin (pf) (porcine) (100 units/mL) flush 5 mL syringe (CANCELED) PRN, Starting on Sat07/05/23 at 1500, Until Sat07/05/23 at 1853, Intra-Operative (Intra-Procedure), Routine 1500 (Given - Provid er: Charu Balbuena MD) heparin (porcine) (1,000 units/mL) injection (CANCELED) PRN, Starting on Sat07/05/23 at 1445, Until Sat07/05/23 at 1853, Intra-Operative (Intra-Procedure), Routine 1445 (Given - Provid er: Cahru Balbuena MD - Comment: 1000 units mixed with 100 mLs NS.) documented in this encounter Care Teams Assistant Spa Director Relationship Specialty Start Date End Date Tristen Hunter MD [address] [place] [address] [place] [address] PCP - General Family Medicine 07/04/23 documented as of this encounter
--- OUTSIDE RECORDS SUMMARY | 2023-10-06 00:38 | XMS_ITS | Encounter Summary ---
[facility] [place] [address] Care Team Providers Care Diagnostic Imaging Manager Name Role Phone Tristen Hunter MD Primary Care Provider [phone] Encounter Details Date Type Department Care Team (Late st Contact Info) Description 07/04/2023 Notes Only [place] [address] Mary Sotelo, [facility] Social History Tobacco Use Types Packs/Day Years Used Date Smoking Tobacco: Former Cigarettes 963 1992 Smokeless Tobacco: Never Alcohol Use Standard Drinks/Week Comments Yes 7 (1 standard drink = 0.6 oz pur e alcohol) [facility] Utilities Answer Date Recorded [...] in a penitentiary (including now)? No 06/04/2023 DH IPV Inpatient [...] of this encounter Progress Notes * Mary Sotelo, [facility] - 07/04/2023 11:47 AM EDT Clinical Oncology Pharmacist Note Oncology PGx Results PATIENT ID: Wero Sadler is a 73 y.o. male with pancreatic adenocarcinoma. Pharmacist interpretation of Oncology PGx results is as follows: Interpretation: Gene Based on most recent FDA, CPIC (Clinical Pharmacogenetics Implementation Consortium), and DPWG([place] pharmacogenetics working group) guidelines: DPYD Normal metabolizer - No action necessary. NUDT15 Normal metabolizer - No action necessary. TPMT Normal metabolizer - No action necessary. UGT1A1 Poor metabolizer - Dose adjustments recommended. 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 However, the precise dose reduction in this patient population is not known and subsequent dose modifications should be considered based on individual patient tolerance to treatment Per DPWG, start with 70% of the normal dose. If the patient tolerates this initial dose, the dose can be increased, guided by the neutrophil count. (PMID: [id number]) Based on FDA and DPWG guidance, if the patient is to start irinotecan, would recommend initiating with an upfront 30% dose reduction and titration based on tolerability. NILOTINIB AND PAZOPANIB Per FDA labeling, patients with the *28/*28 variant may be at higher risk for serum bilirubin increases. No dosing recommendations are provided, monitor. BELINOSTAT Per FDA labeling, because belinostat is primarily (80-90%) metabolized by UGT1A1, the clearance of belinostat could be decreased in patients with reduced UGT1A1 activity (e.g., patients with UGT1A1*28 allele). 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 Based on the above results, Irinotecan, Sacituzumab govitecan-hziy (brand name Trodelvy), Nilotinib, Pazopanib have been added to the patient's chart as an allergy. Please reference dosing guidance for initiation of any future agents that may be affected by the documented gene. The patient was evaluated by a clinical pharmacist for drug-gene interactions impacted by DPYD, NUDT15, TPMT, and UGT1A1, which is limited to the following medications: 5-Fluorouracil, Capecitabine, Tegafur, Mercaptopurine, Thioguanine, Azathioprine, Belinostat, Irinotecan, Sacituzumab govitecan-hziy (brand name Trodelvy), Nilotinib, and Pazopanib. Please do not hesitate to reach out with any questions. Mary Sotelo RPH, PharmD PGY2 Oncology Construction Consultant July 04, 2023 documented in this encounter Plan of Treatment Upcoming Encounters Date Type Department Care Team (Late st Contact Info) Description 10/11/2023 10:00 AM EDT Tech [place] [address] Giacomo Queen 10/11/2023 11:15 AM EDT Office [place] [address] Basim Barr MD [facility] [place] [address] 10/18/2023 9:00 AM EDT Office Visit Hematology/Oncology at [address] [phone] Cl Hess MD [facility] [place] [address] Yessi Renee [address] HEMATOLOGY AND ONCOLOGY [place], [place] [phone] 10/18/2023 9:30 AM EDT Infusion Hematology Oncology at [address] [phone] 10/24/2023 9:30 AM EDT Scheduled View Only Radiation Oncology at [address] [phone] Jeronimo Bowen [place] 10/24/2023 10:00 AM EDT Office Visit Radiation Oncology at [address] [phone] Bigg Peters MD [address] [place] [address] DR RADIATION ONCOLOGY [place], [place] [address] 11/01/2023 9:00 AM EDT Office Visit Hematology/Oncology at [address] [phone] Cl Hess MD [facility] [place] [address] Yessi Renee [address] HEMATOLOGY AND ONCOLOGY [place], [place] [phone] 11/01/2023 9:30 AM EDT Infusion Hematology Oncology at [address] [phone] 12/24/2023 1:00 PM EDT TH Visit (TeleHealth) Radiation Oncology at [address] [phone] Ping Moore PA [facility] HEMATOLOGY [place] [address] documented as of this encounter Visit Diagnoses Not on filedocumented in this encounter Care Teams Diagnostic Imaging Manager Relationship Specialty Start Date End Date Tristen Hunter MD [address] [place] [address] [place] [address] PCP - General Family Medicine 07/04/23 documented as of this encounter
--- OUTSIDE RECORDS SUMMARY | 2023-10-06 00:38 | XMS_ITS | Encounter Summary ---
Author Organization [facility] [place] [address] Care Team Providers Care Leadership Program Internship Name Role Phone Tristen Hunter MD Primary Care Provider [phone] Encounter Details Date Type Department Care Team (Late st Contact Info) Description 07/05/2023 11:35 AM EDT - 07/05/2023 4:44 PM EDT Hospital Encounter Outpatient [place] [address] Charu Balbuena MD [facility] [place] [address] Discharge Disposition: Home Social History Tobacco Use Types Packs/Day Years Used Date Smoking Tobacco: Former Cigarettes 963 - 1992 Smokeless Tobacco: Never Alcohol Use Standard Drinks/Week Comments Yes 7 (1 standard drink = 0.6 oz pur e alcohol) [facility] Utilities Answer Date Recorded In the past 12 months has [employer] electric, gas, oil, or water company threatened [...] Sign Reading Time Taken Comments Blood Pressure 115/66 07/05/2023 4:30 PM EDT Pulse 58 07/05/2023 4:30 PM EDT Temperature 36.2 ??C (97.2 ??F) 07/05/2023 3:42 PM ED T Respiratory Rate 16 07/05/2023 4:30 PM EDT Oxygen Saturation 98% 07/05/2023 4:30 PM EDT Inhaled Oxygen Concentration - - Weight 79.8 kg (176 lb) 07/05/2023 12:03 PM EDT Height 180.3 cm (5' 11) 07/05/2023 12:03 PM EDT Body Mass Index 24.55 07/05/2023 12:03 PM EDT documented in this encounter Discharge Instructions * Discharge Instructions* Judi Carmichael V, RN - 07/05/2023 3:35 PM EDT General [...] closest emergency room or call the hospital band cutting machine operator at [phone] and ask for physician special education resource teacher covering for your physician. Questions or problems after 5pm or on a weekend: Call the [facility] band cutting machine operator at and ask for the physician special education resource teacher covering for your doctor. * Patient Instructions* [...] please call the surgery clinic nurses at [phone]. If you have any concerns at night or when the clinic is closed then please call the main [facility] number and ask to speak with the general surgery resident special education resource teacher. That number is [phone]. Dr. Balbuena will see you back after [...] 20 mg by mouth daily. 05/20/2023 omega 1-spv-yak-fish oil 250-350-1,000 mg Capsule Take 1,000 mg [...] (E.C.) Take 81 mg by mouth daily. wzyzbk-xomcdunl-ybsy ase (Creon 24) 24,000-76,000 -120,000 unit capsuleIndications:M [...] Balbuena MD - 07/05/2023 2:26 PM EDT [facility] Operative Note Patient Name: Wero Sadler : [id number] MR#: [id number] Case Date: 07/05/2023 Surgeon: Surgeon(s) and Role: [...] liver. No biopsies were performed. An 8 [place] Mediport PowerPort was placed successfully via the [...] AM EDT Tech [place] [phone] Giacomo Queen 10/11/2023 11:15 AM EDT Office Visit [place] [phone] Basim Barr MD [facility] [place] [address] 10/18/2023 9:00 AM EDT Office Visit Hematology/Oncology at [address] [phone] Cl Hess MD [facility] [place] [address] Yessi Renee [address] HEMATOLOGY AND ONCOLOGY [place], [place] [phone] 10/18/2023 9:30 AM EDT Infusion Hematology Oncology at [address] [phone] 10/24/2023 9:30 AM EDT Scheduled View Only Radiation Oncology at [address] [phone] Rad , [place] 10/24/2023 10:00 AM EDT Office Visit Radiation Oncology at [address] [phone] Bigg Peters MD [address] [place] [address] DR RADIATION ONCOLOGY [place], [place] [phone] 11/01/2023 9:00 AM EDT Office Visit Hematology/Oncology at [address] [phone] Cl Hess MD [facility] [place] [address] Yessi Renee [address] HEMATOLOGY AND ONCOLOGY [place], [place] [address] 11/01/2023 9:30 AM EDT Infusion Hematology Oncology at [address] [phone] 12/24/2023 1:00 PM EDT TH Visit (TeleHealth) Radiation Oncology at [address] [phone] Ping Moore PA [facility] DR [place]ATOLOG[place] [address] documented as of this encounter Procedures Procedure Name Priority Date/Time Associated Diagnosis Comments XR CHEST ONE VIEW Routine 07/05/2023 4:1 1 PM EDT XR FLUORO NO RAD <1HR - OR USE Routine 07/05/2023 2:50 PM EDT Fluoroscopy Exam Up To 1 Hr [facility] (87962) Yes 07/05/2023 1:44 PM EDT [facility] Insert Tunneled CV Cath w SubQ Port, Age 5 Yrs or Older (19232) Yes 07/05/2023 1:44 PM EDT [facility] Lap, Diagnostic Abdomen (24393) Yes 07/05/2023 1:44 PM EDT [facility] POCT GLUCOSE Routine 07/05/2023 12:32 PM EDT documented in this encounter Results * XR Chest One View (07/05/2023 4:11 PM EDT) WORKSTATION ID [id number] RAD Anatomical Region Laterality Modality Chest N/A Digital Radiogra phy Impressions 07/06/2023 7:33 AM EDT No pneumothorax. Thank you for letting us participate in the care of this patient. ??If you are a health care provider and have any questions regarding this report, please contact the number below. ??For patients who have questions please contact the health animal care taker that requested your imaging first. ? Electronically signed by: Shelly Lombardo MD, [facility] ([phone]), at 07/06/2023 7:33 AM Narrative 07/06/2023 7:33 [...] patients who have questions please contactthe health animal care taker that requested your imaging first. Electronically signed by: Shelly Lombardo MD, [facility]([phone]), at 07/06/2023 7:33 AM Charu Balbuena MD IMG DX ORDERABLES * XR Fluoro No Rad <1Hr - OR Use (07/05/2023 2:50 PM EDT) Narrative Dicom, Auditing User - 07/05/2023 3:10 PM EDT This exam is auto-finalizing. No interpretation was done. Charu Balbuena MD IMG FLUORO ORDERAB LES * POCT Glucose (07/05/2023 12:32 PM EDT) [facility] Signature Glucose, POC 160 65 - 199 mg/dL [facility] Comment: Supplemental ranges: <140 mg/dL before meals <180 mg/dL all other times of the day Blood 07/05/2023 12:3 2 PM EDT 07/05/2023 12:32 PM EDT Charu Balbuena MD POINT OF CARE TEST ORDERABLES [facility] [place] [address] documented in this encounter Visit Diagnoses Not on filedocumented in this encounter Active and Recently Administered [...] (Intra-Procedure), Routine 1445 (Given - Provid er: Charu Balbuena MD - Comment: 1000 units mixed with 100 mLs NS.) documented in this encounter Care Teams Leadership Program Internship Relationship Specialty Start Date End Date Tristen Hunter MD [address] [place] [address] [place] [address] PCP - General Family Medicine 07/04/23 documented as of this encounter
--- OUTSIDE RECORDS SUMMARY | 2023-10-06 00:38 | XMS_ITS | Encounter Summary ---
[place] [address] Care Team Providers Care Fire Prevention Bureau Captain Name Role Phone Alo Carey Primary Care Provider Encounter Details Date Type Department Care Team (Late st Contact Info) Description 06/25/2023 2:35 PM EDT Laboratory Appointment Lab [address] [place] [phone] Social History Tobacco Use Types Packs/Day Years Used Date Smoking Tobacco: Former Cigarettes 4 3 1992 Smokeless Tobacco: Never Alcohol Use Standard Drinks/Week Comments Yes 7 (1 standard drink = 0.6 oz pur e alcohol) [facility] Utilities Answer Date Recorded In the [...] a senior living (including now)? No 06/04/2023 Sex and Gender Information Value Date Recorded Sex Assigned at Not on file Gender Identity Not on file Sexual Orientation Not on file documented as of this encounter Plan of Treatment Upcoming Encounters Date Type Department Care Team (Late st Contact Info) Description 10/11/2023 10:00 AM EDT Tech [place] [address] Giacomo Queen 10/11/2023 11:15 AM EDT Office [place] [address] Basim Barr MD [facility] [place] [address] 10/18/2023 9:00 AM EDT Office Visit Hematology/Oncology at [address] [phone] Cl Hess MD [facility] [place] [address] Yessi Renee APRN [address] [place] [address] DR HEMATOLOGY AND ONCOLOGY [place], [place] [phone] 10/18/2023 9:30 AM EDT Infusion Hematology Oncology at [address] [phone] 10/24/2023 9:30 AM EDT Scheduled View Only Radiation Oncology at [address] [phone] Jeronimo Nurse [place] 10/24/2023 10:00 AM EDT Office Visit Radiation Oncology at [address] [phone] Bigg Peters MD [address] [place] [address] DR RADIATION ONCOLOGY [place], [place] [address] 11/01/2023 9:00 AM EDT Office Visit Hematology/Oncology at [address] [phone] Cl Hess MD [facility] [place] [address] Yessi Renee APRN [address] [place] [address] DR HEMATOLOGY AND ONCOLOGY [place], [place] [phone] 11/01/2023 9:30 AM EDT Infusion Hematology Oncology at [address] [phone] 12/24/2023 1:00 PM EDT TH Visit (TeleHealth) Radiation Oncology at [address] [phone] Ping Moore PA [facility] [place] [address] documented as of this encounter Visit Diagnoses Not on filedocumented in this encounter Care Teams Fire Prevention Bureau Captain Relationship Specialty Start Date End Date Alo Carey DO [address] [place] [address] [place] [address] PCP - General Internal Medicine 08/31/20 07/03/23 documented as of this encounter
--- OUTSIDE RECORDS SUMMARY | 2023-10-06 00:38 | XMS_ITS | Encounter Summary ---
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 No 06/04/2023 Sex and Gender Information Value Date Recorded Sex Assigned at Not on file Gender Identity Not on file Sexual Orientation Not on file documented as of this encounter Medications at Time of Discharge Medication Sig Dispensed Refills Start Date End Date omeprazole (PriLOSEC) [address] capsule Take 20 mg by mouth daily. 05/20/2023 omega 4-aos-mfk-fish oil 250-350-1,000 mg Capsule Take 1,000 mg [...] (E.C.) Take 81 mg by mouth daily. elmtzw-tlessemi-kppv ase (Creon 24) 24,000-76,000 -120,000 unit capsuleIndications:M [...] AM EDT Tech [place] [phone] Giacomo Queen 10/11/2023 11:15 AM EDT Office [place] [phone] Basim Barr MD [facility] [place] [address] 10/18/2023 9:00 AM EDT Office Visit Hematology/Oncology at [address] [phone] Cl Hess MD [facility] [place] [address] Yessi Renee APRN [address] [place] [address] DR HEMATOLOGY AND ONCOLOGY [place], [place] [id number] 10/18/2023 9:30 AM EDT Infusion Hematology Oncology at [address] [phone] 10/24/2023 9:30 AM EDT Scheduled View Only Radiation Oncology at [address] [phone] St [facility] Champagne 10/24/2023 10:00 AM EDT Office Visit Radiation Oncology at [address] [phone] Bigg Peters MD [address] [place] [address] DR RADIATION ONCOLOGY [place], [place] [phone] 11/01/2023 9:00 AM EDT Office Visit Hematology/Oncology at [address] [phone] Cl Hess MD [facility] [place] [address] Yessi Renee APRN [address] [place] [address] DR HEMATOLOGY AND ONCOLOGY [place], [place] [phone] 11/01/2023 9:30 AM EDT Infusion Hematology Oncology at [address] [phone] 12/24/2023 1:00 PM EDT TH Visit (TeleHealth) Radiation Oncology at [address] [phone] Ping Moore PA [facility] DR HEMATOLOGY [place] [address] documented as of this encounter Procedures Procedure Name Priority Date/Time Associated Diagnosis Comments ECHO COMPLETE Routine 06/19/2023 12:31 PM EDT Essential hypertension 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 Echocardiogram Report Name: THA SADLER ?Study Date: 06/19/2023 10:13 AMBP: 110/58 mmHg ? Patient Location: : 1950 ? Height: 180 cm ? Account: [id number] Age: 73 yrs ? Weight: 92 kg Gender: Male ?BSA: 2.1 m2 Ordering Physician: PRESLEY PARRISH Referring Physician: PRESLEY PARRISH Performed By: Denita Perez RDCS Reason For Study: Hypertension. 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 Exam Location: [facility]. Interpretation Summary Left ventricle is of normal size with mild increased wall thickness. Left ventricular systolic function is normal. LV ejection fraction is estimated visually at 65-70%. No segmental wall motion abnormalities. Normal right ventricle. No significant valvular abnormalities. No prior studies available for comparison. Procedure Complete-[id number]. Satisfactory quality. Regular rhythm. Left Ventricle Left ventricle is of normal size. Wall thickness is mildly increased. Some foreshortening of the apical views. Left ventricular systolic function is normal. Left ventricular ejection fraction is estimated visually at 65-70%. Global longitudinal strain is measured at -15.6 %. (GE). There are no segmental wall motion abnormalities. Right Ventricle The right ventricle is of normal size. Right ventricular systolic function is normal. Left Atrium The left atrium is normal. There is an atrial septal aneurysm. Right Atrium The right atrium is mildly dilated. A Chiari network is present (normal embryologic variant). Aortic Valve The aortic valve is tricuspid. The aortic valve is mildly thickened. There is no aortic stenosis. There is no aortic regurgitation. Mitral Valve The mitral valve leaflets are thickened. There is no mitral stenosis. There is trace mitral regurgitation. Tricuspid Valve The tricuspid valve is structurally normal. There is mild tricuspid regurgitation. Pulmonic Valve The pulmonic valve appears to be structurally normal. There is no valvular pulmonic stenosis. There is trace pulmonic valve regurgitation. Great Arteries The aortic root is of normal size. No abnormalities are identified. Ascending aorta is normal in size. No abnormalities of the pulmonary artery are identified. Venous Inferior vena cava is normal in size. Inferior vena cava collapse greater than 50% with respiration. Pericardium/Pleural The pericardium appears normal. Hemodynamics Left ventricular diastolic function is normal. The peak right ventricular systolic pressure is 26.5 mmHg . The right ventricular systolic pressure is normal. ? 2D Measurements ? Volumes ?IVSd: 1.3 cm ? LA Volume Index: ?LVIDd: 4.2 cm ?LVIDs: 2.3 cm ?22.8 ml/m2 ?LVPWd: 1.6 cm ?SV(LVOT): 93.1 ml ? LV Stroke Volume: 93.0 ml ?RWT: 0.78 {ratio} ?SI(LVOT): 43.9 ml/m2 ?LV mass(C)d: 240.7 grams ?LV mass(C)dI: 113.6 grams/m2 ?Ao root diam: 3.5 cm ?Ao root diam index: 1.7 ?asc Aorta Diam: 3.7 cm ?LVOT diam: 2.3 cm ?TAPSE_phl: 1.5 cm Doppler ?3D/Strain/TomTec LV V1 VTI: 22.4 cm ?LV GLS (S3P): -15.6 % LVOT max Velocity: 110.7 cm/sec MV E max irineo: 61.4 cm/sec MV A max irineo: 79.6 cm/sec MV E/A: 0.77 MV dec time: 0.19 sec MV mean P.4 mmHg Lat Peak E' Irineo: 7.8 cm/sec E/ e' (lat): 7.9 Med Peak E' Irineo: 7.2 cm/sec E/e' (med): 8.6 E/e' Average: 8.2 PI end-d irineo: 134.4 cm/sec TR max irineo: 242.2 cm/sec RVSP(TR): 26.5 mmHg Procedure Note Rafael Collado MD - 06/19/2023 [address] [place] [address] Echocardiogram Report Name: THA SADLER Study Date: 06/19/2023 10:13 AMBP:110/58 mmHg Patient Location: : 1950 Height: 180 cmAccount: [id number] Age: 73 yrs Weight: 92 kg Gender: Male BSA: 2.1 m2 Ordering Physician: PRESLEY PARRISH Referring Physician: PRESLEY PARRISH Performed By: Denita Perez RDCS Reason For Study: Hypertension. 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 Exam Location: [facility]. Interpretation Summary Left ventricle is of normal size with mild increased wall thickness.Left ventricular systolic function is normal. LV ejection fraction isestimated visually at 65-70%. No segmental wall motion abnormalities. Normal right ventricle. No significant valvular abnormalities. No prior studies available for comparison. Procedure Complete-[id number]. Satisfactory quality. Regular rhythm. Left Ventricle Left ventricle is of normal size. Wall thickness is mildly increased.Some foreshortening of the apical views. Left ventricular systolic function isnormal. Left ventricular ejection fraction is estimated visually at 65-70%.Global longitudinal strain is measured at -15.6 %. (GE). There are no segmentalwall motion abnormalities. Right Ventricle The right ventricle is of normal size. Right ventricular systolic functionis normal. Left Atrium The left atrium is normal. There is an atrial septal aneurysm. Right Atrium The right atrium is mildly dilated. A Chiari network is present (normal embryologic variant). Aortic Valve The aortic valve is tricuspid. The aortic valve is mildly thickened. Thereis no aortic stenosis. There is no aortic regurgitation. Mitral Valve The mitral valve leaflets are thickened. There is no mitral stenosis.There is trace mitral regurgitation. Tricuspid Valve The tricuspid valve is structurally normal. There is mild tricuspidregurgitation. Pulmonic Valve The pulmonic valve appears to be structurally normal. There is novalvular pulmonic stenosis. There is trace pulmonic valve regurgitation. Great Arteries The aortic root is of normal size. No abnormalities are identified.Ascending aorta is normal in size. No abnormalities of the pulmonary artery areidentified. Venous Inferior vena cava is normal in size. Inferior vena cava collapse greaterthan 50% with respiration. Pericardium/Pleural The pericardium appears normal. Hemodynamics Left ventricular diastolic function is normal. The peak right ventricularsystolic pressure is 26.5 mmHg . The right ventricular systolic pressure isnormal. 2D Measurements Volumes IVSd: 1.3 cm LA VolumeIndex: LVIDd: 4.2 cm LVIDs: 2.3 cm 22.8 ml/m2 LVPWd: 1.6 cm SV(LVOT): 93.1ml LV Stroke Volume:93.0 ml RWT: 0.78 {ratio} SI(LVOT): 43.9ml/m2 LV mass(C)d: 240.7 grams LV mass(C)dI: 113.6 grams/m2 Ao root diam: 3.5 cm Ao root diam index: 1.7 asc Aorta Diam: 3.7 cm LVOT diam: 2.3 cm TAPSE_phl: 1.5 cm Doppler 3D/Strain/TomTec LV V1 VTI: 22.4 cm LV GLS (S3P): -15.6 % LVOT max Velocity: 110.7 cm/sec MV E max irineo: 61.4 cm/sec MV A max irineo: 79.6 cm/sec MV E/A: 0.77 MV dec time: 0.19 sec MV mean P.4 mmHg Lat Peak E' Irineo: 7.8 cm/sec E/ e' (lat): 7.9 Med Peak E' Irineo: 7.2 cm/sec E/e' (med): 8.6 E/e' Average: 8.2 PI end-d irineo: 134.4 cm/sec TR max irineo: 242.2 cm/sec RVSP(TR): 26.5 mmHg Presley Parrish MD ECHO ORDERABLES documented in this encounter Visit Diagnoses Diagnosis Essential hypertension Unspecified essential hypertension Atherosclerosis of [place]mie coronary artery of s[place]qualmie heart without angina pectoris documented in this encounter Care Teams Lift Mechanic Relationship Specialty Start Date End Date Alo Carey DO [address] [place] [address] [place] [phone] PCP - General Internal Medicine 08/31/20 07/03/23 documented as of this encounter
--- OUTSIDE RECORDS SUMMARY | 2023-10-06 00:38 | XMS_ITS | Encounter Summary ---
Author Organization [facility] [address] Care Team Providers Care Internet Marketing Consultant Name Role Phone CherryAlo Lon RUTHERFORD Primary Care Provider [phone] Reason for Referral * Consultation (Urgent) - Closed Specialty Diagnoses / Procedures Referred By Marques livingston Referred To Contact Gastroenterology Diagnoses Malignant neoplasm of head of pancreas Hyperbilirubinemia Procedures Bets- 1-2 weeks EUS/ERCP Cl Hess MD [facility] [place] [address] [facility] Endoscopy [address] [place] [phone] Referral ID Status Reason Start Date Expiration Date V isits Requested Visits Authorized [id number] Closed Specialty Service Requested 06/26/2023 06/25/2024 1 1 Encounter Details Date Type Department Care Team (Late st Contact Info) Description 06/26/2023 Orders Only Hematology [place] [address] Cl Hess MD [facility] [place] [address] Malignant neoplasm of head of pancreas; Hyperbilirubinemia Social History Tobacco Use Types Packs/Day Years Used Date Smoking Tobacco: Former Cigarettes 4 30 1 963 - 1992 Smokeless Tobacco: Never Alcohol Use Standard Drinks/Week Comments Yes 7 (1 standard drink = 0.6 oz pur e alcohol) [facility] Utilities Answer Date Recorded In the [...] in a longterm (including now)? No 06/04/2023 Sex and Gender Information Value Date Recorded Sex Assigned at Not on file Gender Identity Not on file Sexual Orientation Not on file documented as of this encounter Progress Notes * Gm Blas RN - 06/26/2023 9:44 AM Ross: Care Coordination Patient met with Dr. Balbuena yesterday for a surgical consult. Patient had his repeat labs then as well. His T. Bili is at 2.0 and transaminases are trending upward compare to his last labs from 05/15 which was done in [place]. During the course of his diagnostic work-up in [place], he had undergone ERCP on 04/29/23 and had an uncovered wallflex biliary stent placed. Considering his increasing LFTs and the length of time since his procedure, Dr. Hess is concerned that the biliary stent might be occluded and would like it to assessed. Reviewed labs and discussed the concerns with the patient. He reported of sudden onset of an episode of chill a couple of nights ago. It was self-limiting and hasn't recur. He also denied any obviousfever, new pain, nausea or vomiting. Informed of GI referral for evaluation and he agreed with the plan. Advised to monitor for recurrence of chill, or for any onset of fever or for any change in hiscondition, and to call the clinic. He indicated understanding of the instruction. documented in this encounter Plan of Treatment Upcoming Encounters Date Type Department Care Team (Late st Contact Info) Description 10/11/2023 10:00 AM EDT Tech Visit [place] [address] Giacomo Queen 10/11/2023 11:15 AM EDT Office Visit [place] [phone] Basim Barr MD [facility] [place] [address] 10/18/2023 9:00 AM EDT Office Visit Hematology/Oncology at [address] [phone] Cl Hess MD [facility] [place] [address] Yessi Renee APRN [address] [place] [address] DR HEMATOLOGY AND ONCOLOGY [place], [place] [phone] 10/18/2023 9:30 AM EDT Infusion Hematology Oncology at [address] [phone] 10/24/2023 9:30 AM EDT Scheduled View Only Radiation Oncology at [address] [phone] Jeronimo Nurse [place] 10/24/2023 10:00 AM EDT Office Visit Radiation Oncology at [address] [phone] Bigg Peters MD [address] [place] [address] DR RADIATION ONCOLOGY [place], [place] [id number] 11/01/2023 9:00 AM EDT Office Visit Hematology/Oncology at [address] [phone] Cl Hess MD [facility] [place] [address] Yessi Renee APRN [address] [place] [address] DR HEMATOLOGY AND ONCOLOGY [place], [place] [id number] 11/01/2023 9:30 AM EDT Infusion Hematology Oncology at [address] [phone] 12/24/2023 1:00 PM EDT TH Visit (TeleHealth) Radiation Oncology at [address] [phone] Ping Moore PA [facility] [address] [place] [address] Scheduled Referrals Name Type Priority Associated Diagnoses Order Schedule Referral to Gastroenterology Outpatient Referral Routine Malignant neoplasm of head of pancreas Hyperbilirubinemia Ordered: 06/26/2023 documented as of this encounter Visit Diagnoses Diagnosis Malignant neoplasm of head of pancreas Hyperbilirubinemia Jaundice, unspecified, not of documented in this encounter Care Teams Internet Marketing Consultant Relationship Specialty Start Date End Date Alo Carey DO [address] [place] [address] [place] [phone] PCP - General Internal Medicine 08/31/20 07/03/23 documented as of this encounter
--- OUTSIDE RECORDS SUMMARY | 2023-10-06 00:39 | XMS_ITS | Encounter Summary ---
Author Organization [facility] Address [facility] [place] [address] Care Team Providers Care Dietetic Tech Name Role Phone Alo Carey DO Primary Care Provider [phone] Encounter Details Date Type Department Care Team (Latest Contact Info) Description 06/18/2023 9:10 AM EDT Ancillary Procedure [place] [address] Cl Hess MD [facility] [place] [address] Malignant neoplasm of head of pancreas Social History Tobacco Use Types Packs/Day Years Used Date Smoking Tobacco: Former Cigarettes 4 30 1 963 - 1992 Smokeless Tobacco: Never Alcohol Use Standard Drinks/Week Comments Yes 7 (1 standard drink = 0.6 oz pur e alcohol) [facility] Utilities Answer Date Recorded In the past 12 months has [place], gas, oil, or water [employer] threatened to shut off services in your [...] in a intermediate (including now)? No 06/04/2023 Sex and Gender Information Value Date Recorded Sex Assigned at Not on file Gender Identity Not on file Sexual Orientation Not on file documented as of this encounter Plan of Treatment Upcoming Encounters Date Type Department Care Team (Late st Contact Info) Description 10/11/2023 10:00 AM EDT Tech [place] [address] Giacomo Queen 10/11/2023 11:15 AM EDT Office [place] [address] Basim Barr MD [facility] [place] [place] [address] 10/18/2023 9:00 AM EDT Office Visit Hematology/Oncology at [address] [phone] Cl Hess MD [facility] [place] [address] Yessi Renee APRN [address] [place] [address] DR HEMATOLOGY AND ONCOLOGY [place], [place] [id number] 10/18/2023 9:30 AM EDT Infusion Hematology Oncology at [address] [phone] 10/24/2023 9:30 AM EDT Scheduled View Only Radiation Oncology at [address] [phone] St La Nena Champagne 10/24/2023 10:00 AM EDT Office Visit Radiation Oncology at [address] [phone] Bigg Peters MD [address] [place] [address] DR RADIATION ONCOLOGY [place], [place] [id number] 11/01/2023 9:00 AM EDT Office Visit Hematology/Oncology at [address] [phone] Cl Hess MD [facility] [place] [address] Yessi Renee APRN [address] [place] [address] DR HEMATOLOGY AND ONCOLOGY [place], [place] [id number] 11/01/2023 9:30 AM EDT Infusion Hematology Oncology at [address] [phone] 12/24/2023 1:00 PM EDT TH Visit (TeleHealth) Radiation Oncology at [address] [phone] Ping Moore PA [facility] [place] [address] documented as of this encounter Procedures Procedure Name Priority Date/Time Associated Diagnosis Comments REQUEST FOR 2ND READ CT ABDOMEN Routine 06/18/2023 9:07 AM EDT Malignant neoplasm of head of pancreas documented in this encounter Results * Request For 2nd Read CT Abdomen (06/18/2023 9:07 AM EDT) Anatomical Region Laterality Modality Abdomen SO Impressions 06/18/2023 9:36 AM EDT 1. ??Mixed cystic and solid mass centered in the pancreatic head, as detailed above. 2. ??Few scattered sub-5 mm pulmonary nodules are indeterminate. ??These are likely of an infectious or inflammatory etiology, but do remain indeterminate in the setting of a primary malignancy. ??Attention on follow-up is recommended. Thank you for letting us participate in the care of this patient. ??If you are a health care provider and have any questions regarding this report, please contact the number below. ??For patients who have questions please contact the health care manager cna that requested your imaging first. ? Electronically signed by: Rafael Ansari DO, [facility] ([phone]), at 06/18/2023 9:36 AM Narrative 06/18/2023 9:36 AM EDT EXAMINATION: * ??REQUEST FOR 2ND READ CT CHEST AND ABDOMEN * ??CT OF THE CHEST WITHOUT INTRAVENOUS CONTRAST. ?? * ??CT OF THE ABDOMEN WITH INTRAVENOUS CONTRAST. CLINICAL HISTORY: 73-year-old male recently diagnosed with pancreatic cancer around subcutaneous alignment. ??Staging. ??Assessment for metastatic disease. Request for second interpretation of outside imaging study * ??Sending Institution [facility] * ??Date of exam [id number] * ??I believe a reinterpretation of this exam may alter care of Patient. Yes TECHNIQUE: CT of the chest was obtained without intravenous contrast also performed at the [facility] also performed on May 22, 2023. ?? CT of the abdomen with intravenous contrast was performed at the [facility] on May 22, 2023. ??Helical CT images of the chest were obtained without intravenous contrast. ??Helical CT images of the abdomen were obtained following the administration of intravenous contrast. ?? Per report, the patient received 99 mL of Omnipaque 350 intravenous contrast. Oral contrast was not administered. ??Multiplanar reformats were performed in the sagittal cord planes. COMPARISON: Comparison is made to multiple prior CT of the abdomen and pelvis examinations, the most recent which is dated April 18, 2023. ??No prior cross-sectional imaging of the thorax is provided for comparison.. FINDINGS: Limitations: Lack of intravenous contrast limits evaluation of the mediastinum, and vascular structures. [employer] Images: Noncontributory. CT OF THE CHEST: Pulmonary parenchyma: There is biapical pleural thickening with associated subpleural pulmonary parenchymal scarring. ??There are a few scattered sub-4 mm pulmonary nodules predominantly in the right lung. ??There are curvilinear bands of atelectasis at the bilateral lung bases. Airways: The central airways are patent. ??There is no endobronchial or endotracheal lesion. Pleura: There are trace bilateral pleural effusions, right greater than left. There is no pneumothorax. Lymph nodes:There is a prominent right peribronchial lymph node with a short axis diameter of 15 mm. ??There are other smaller pretracheal lymph nodes. ??There are no pathologically enlarged lymph nodes elsewhere. Heart, pericardium, and great vessels: Cardiac size is at the upper limits of normal. ??There is confluent atherosclerotic calcification throughout the coronary arteries. ??There is been prior median sternotomy and coronary artery bypass graft. ??There is confluent atherosclerotic calcification throughout the aorta and branch vessels. ??There is a normal three-vessel aortic arch configuration. ??The aorta and pulmonary arteries are normal in course. Other mediastinal structures: The mediastinal fat is preserved. ??Limited evaluation of the esophagus is unremarkable. Lower neck: Visualized structures within the inferior neck are within normal limits. Body wall soft tissues: Normal. Skeletal structures: There are moderate arthritic changes of bilateral glenohumeral joints. ??There are mild degenerative changes of the visualized spine with endplate sclerosis and osteophyte formation. ??There has been prior median sternotomy and coronary artery bypass graft. ??The stomach wires are intact with some fracture. ??The sternum and manubrium surgical components have refused. CT OF THE ABDOMEN: Liver: Normal. Bile ducts: There is a metallic biliary stent present within the common bile duct. ??There is decreased, trace residual biliary ductal dilatation. ??There is pneumobilia antidependently. Gallbladder: The gallbladder is collapsed, limiting evaluation. ??There are a few locules of air within the gallbladder. Pancreas: There is a mixed cystic and solid mass centered in the pancreatic head. ??The solid hypoattenuating component located more inferiorly measures approximately 34 mm (this is in the region of metabolic activity is seen on the follow-up PET/CT examination. ??Superior to this, there is approximately 3 cm cystic lesion. ??There is atrophy of the pancreatic neck, body, and tail. ??In addition, there are a few smaller cystic lesions located more inferiorly within the pancreatic head and neck, the second largest measuring 9 mm. Pancreatic duct: The pancreatic duct is dilated, with a maximal diameter 14 mm within the pancreatic neck. Vascular involvement: * ??Arterial: Along the lateral margin of the tumor, there is abutment along an approximately 180 degrees segment of the superior mesenteric artery (series 15, image 47). ??The celiac axis and its branches appear unaffected although there is a diminutive common hepatic artery favored to be due to atherosclerotic disease and stenosis. * ??Venous: The cystic component of the mass has mass effect upon both the superior mesenteric vein and portal vein without luminal narrowing. ??There is ventral mass effect upon the left renal vein. ??Both the cystic and solid components of the mass; however, the fat plane between the mass and the renal vein appears preserved. Spleen: Normal. Adrenals: Normal. Kidneys: There is nonspecific perinephric fat stranding bilaterally. Vasculature: As detailed above under pancreas. ??There is confluent atherosclerotic calcification throughout the aorta and branch vessels. ??The inferior vena cava is normal in course and caliber. ??The superior mesenteric, splenic, and portal veins are patent. ??The hepatic veins are patent. ??The renal veins are patent. Lymph Nodes: ??There are no pathologically enlarged lymph nodes. Bowel: The stomach is distended with food stuffs and debris. ??The duodenum is normal in course and caliber. ??The remainder the visualized small bowel is within normal limits. ??There is a large volume of stool throughout the visualized large bowel. Peritoneum and mesentery: No ascites, free air, or loculated fluid collection. No mesenteric inflammation. Abdominal wall: Normal. Osseous structures: There are no suspicious osseous lesions. ??There are degenerative changes of visualized spine with endplate sclerosis and osteophyte formation. ??There is diffuse disc desiccation with loss of intervertebral disc height and vacuum disc phenomenon. ??There is multilevel facet arthropathy. Procedure Note Rafael Ansari, DO - 06/18/2023 EXAMINATION: * REQUEST FOR 2ND READ CT CHEST AND ABDOMEN * CT OF THE CHEST WITHOUT INTRAVENOUS CONTRAST. * CT OF THE ABDOMEN WITH INTRAVENOUS CONTRAST. CLINICAL HISTORY: 73-year-old male recently diagnosed with pancreaticcancer around subcutaneous alignment. Staging. Assessment for metastaticdisease. Request for second interpretation of outside imaging study * Sending Institution [facility] * Date of exam [id number] * I believe a reinterpretation of this exam may alter care of Patient.Yes TECHNIQUE: CT of the chest was obtained without intravenous contrastalso performed at the [facility] also performed onMay 22, 2023. CT of the abdomen with intravenous contrast was performed atthe [facility] on May 22, 2023. Helical CT imagesof the chest were obtained without intravenous contrast. Helical CT imagesof the abdomen were obtained following the administration of intravenouscontrast. Per report, the patient received 99 mL of Omnipaque 350 intravenouscontrast. Oral contrast was not administered. Multiplanar reformats were performedin the sagittal cord planes. COMPARISON: Comparison is made to multiple prior CT of the abdomen andpelvis examinations, the most recent which is dated April 18, 2023. Noprior cross-sectional imaging of the thorax is provided for comparison.. FINDINGS: Limitations: Lack of intravenous contrast limits evaluation of themediastinum, and vascular structures. [employer] Images: Noncontributory. CT OF THE CHEST: Pulmonary parenchyma: There is biapical pleural thickening withassociated subpleural pulmonary parenchymal scarring. There are a few scatteredsub-4 mm pulmonary nodules predominantly in the right lung. There are curvilinearbands of atelectasis at the bilateral lung bases. Airways: The central airways are patent. There is no endobronchial or endotracheal lesion. Pleura: There are trace bilateral pleural effusions, right greater thanleft. There is no pneumothorax. Lymph nodes:There is a prominent right peribronchial lymph node with ashort axis diameter of 15 mm. There are other smaller pretracheal lymph nodes.There are no pathologically enlarged lymph nodes elsewhere. Heart, pericardium, and great vessels: Cardiac size is at the upper limitsof normal. There is confluent atherosclerotic calcification throughout the coronary arteries. There is been prior median sternotomy and coronaryartery bypass graft. There is confluent atherosclerotic calcification throughoutthe aorta and branch vessels. There is a normal three-vessel aortic arch configuration. The aorta and pulmonary arteries are normal in course. Other mediastinal structures: The mediastinal fat is preserved. Limited evaluation of the esophagus is unremarkable. Lower neck: Visualized structures within the inferior neck are withinnormal limits. Body wall soft tissues: Normal. Skeletal structures: There are moderate arthritic changes of bilateral glenohumeral joints. There are mild degenerative changes of thevisualized spine with endplate sclerosis and osteophyte formation. There has beenprior median sternotomy and coronary artery bypass graft. The stomach wiresare intact with some fracture. The sternum and manubrium surgical componentshave refused. CT OF THE ABDOMEN: Liver: Normal. Bile ducts: There is a metallic biliary stent present within the commonbile duct. There is decreased, trace residual biliary ductal dilatation.There is pneumobilia antidependently. Gallbladder: The gallbladder is collapsed, limiting evaluation. There area few locules of air within the gallbladder. Pancreas: There is a mixed cystic and solid mass centered in thepancreatic head. The solid hypoattenuating component located more inferiorlymeasures approximately 34 mm (this is in the region of metabolic activity is seenon the follow-up PET/CT examination. Superior to this, there is approximately 3cm cystic lesion. There is atrophy of the pancreatic neck, body, and tail.In addition, there are a few smaller cystic lesions located more inferiorlywithin the pancreatic head and neck, the second largest measuring 9 mm. Pancreatic duct: The pancreatic duct is dilated, with a maximal mm within the pancreatic neck. Vascular involvement: * Arterial: Along the lateral margin of the tumor, there is abutmentalong an approximately 180 degrees segment of the superior mesenteric artery(series 15, image 47). The celiac axis and its branches appear unaffected althoughthere is a diminutive common hepatic artery favored to be due to atheroscleroticdisease and stenosis. * Venous: The cystic component of the mass has mass effect upon boththe superior mesenteric vein and portal vein without luminal narrowing. Thereis ventral mass effect upon the left renal vein. Both the cystic and solid components of the mass; however, the fat plane between the mass and therenal vein appears preserved. Spleen: Normal. Adrenals: Normal. Kidneys: There is nonspecific perinephric fat stranding bilaterally. Vasculature: As detailed above under pancreas. There is confluent atherosclerotic calcification throughout the aorta and branch vessels.The inferior vena cava is normal in course and caliber. The superiormesenteric, splenic, and portal veins are patent. The hepatic veins are patent. Therenal veins are patent. Lymph Nodes: There are no pathologically enlarged lymph nodes. Bowel: The stomach is distended with food stuffs and debris. The duodenumis normal in course and caliber. The remainder the visualized small bowelis within normal limits. There is a large volume of stool throughout the visualized large bowel. Peritoneum and mesentery: No ascites, free air, or loculated fluidcollection. No mesenteric inflammation. Abdominal wall: Normal. Osseous structures: There are no suspicious osseous lesions. There are degenerative changes of visualized spine with endplate sclerosis andosteophyte formation. There is diffuse disc desiccation with loss of intervertebraldisc height and vacuum disc phenomenon. There is multilevel facetarthropathy. IMPRESSION 1. Mixed cystic and solid mass centered in the pancreatic head, asdetailed above. 2. Few scattered sub-5 mm pulmonary nodules are indeterminate. Theseare likely of an infectious or inflammatory etiology, but do remainindeterminate in the setting of a primary malignancy. Attention on follow-up isrecommended. Thank you for letting us participate in the care of this patient. If youare a health care provider and have any questions regarding this report,please contact the number below. For patients who have questions please contactthe health care manager cna that requested your imaging first. Electronically signed by: Rafael Ansari DO, [facility]([phone]), at 06/18/2023 9:36 AM Cl Hess MD IMG OUTSIDE INTERPRE TATION ORDERABLES documented in this encounter Visit Diagnoses Diagnosis Malignant neoplasm of head of pancreas documented in this encounter Care Teams Dietetic Tech Relationship Specialty Start Date End Date Alo Carey DO [address] [place] [address] [place] [address] PCP - General Internal Medicine 08/31/20 07/03/23 documented as of this encounter
--- OUTSIDE RECORDS SUMMARY | 2023-10-06 00:39 | XMS_ITS | Encounter Summary ---
[place] [address] Care Team Providers Care Cigarette Package Examiner Name Role Phone Alo Carey Primary Care Provider [phone] Reason for Referral * Consultation (Routine) - Closed Specialty Diagnoses / Procedures Referred By Marques livingston Referred To Contact General Surgery Diagnoses Malignant neoplasm of head of pancreas Cl Hess MD [facility] [place] [address] Charu Balbuena MD [facility] [place] [address] Referral ID Status Reason Start Date Expiration Date V isits Requested Visits Authorized [id number] Closed Consult, Test & Treat 06/06/2023 06/05/2024 1 1 * Consultation (Urgent) - Closed Specialty Diagnoses / Procedures Referred By Marques livingston Referred To Contact Genetics Diagnoses Malignant neoplasm of head of pancreas Cl Hess MD [facility] [place] [address] [facility] Hem Onc [address] [place] [address] Referral ID Status Reason Start Date Expiration Date V isits Requested Visits Authorized [id number] Closed Consult, Test & Treat 06/06/2023 06/05/2024 1 1 Reason for Visit * Consultation (Routine) - Closed Specialty Diagnoses / Procedures Referred By Contermelinda t Referred To Contact Diagnoses Malignant neoplasm of head of pancreas Cameron Blackwell, DO [address] [address] Cl Hess MD [address] [place] [address] [place] [address] Referral ID Status Reason Start Date Expiration Date V isits Requested Visits Authorized [id number] Closed Consult, Test & Treat 05/21/2023 05/20/2024 1 1 Encounter Details Date Type Department Care Team (Latest Contact Info) Description 06/07/2023 3:00 PM EDT Office Visit Hematology/Oncology at [address] [address] Cl Hess MD [facility] [place] [address] Malignant neoplasm of head of pancreas; Pancreatic insufficiency Social History Tobacco Use Types Packs/Day Years Used Date Smoking Tobacco: Former Cigarettes 4 30 1 963 - 1992 Smokeless Tobacco: Never Alcohol Use Standard Drinks/Week Comments Yes 7 (1 standard drink = 0.6 oz pur e alcohol) [facility] Utilities Answer Date Recorded In the past 12 months has [employer], gas, oil, or water [employer] threatened to shut off services in your [...] Sign Reading Time Taken Comments Blood Pressure 178/69 06/07/2023 3:10 PM EDT Pulse 53 06/07/2023 3:10 PM EDT Temperature 35.8 ??C (96.4 ??F) 06/07/2023 3:10 PM ED T Respiratory Rate 18 06/07/2023 3:10 PM EDT Oxygen Saturation 100% 06/07/2023 3:10 PM EDT Inhaled Oxygen Concentration - - Weight 83 kg (183 lb) 06/07/2023 3:10 PM EDT Height 178 cm (5' 10.08) 06/07/2023 3:10 PM EDT Body Mass Index 26.2 06/07/2023 3:10 PM EDT documented in this encounter Progress Notes * Cl Hess MD - 06/07/2023 3:00 PM EDT Subjective Patient ID: Wero Sadler is [...] cm with biliary and pancreatic ductal dilation Upper EUS 04/29/23: There is a large [...] periduodenal or perilesional adenopathy was appreciated Impression: [id number] pancreas head mass lesion with biliary and [...] in the abdomen. PET scan 05/27/23 - trying to obtain report. Per patient, there was no evidence of metastatic disease 2. Colorectal cancer S/p resection in 2008 [...] history is summarized above. Wero is accompanied to clinic today by his significant other, Amy. 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 He says he can see the pattern on my shirt and that I am wearing glasses. They haveseparate homes but stay together often. In fact Amy says she has been at his home for about two years. He can do most things for himself except for cooking. He also has 4 brothers in the area. He de nies pain. 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 He had lost some weight in the past 6 months, 50-70# but has gained 10# back. He says he is eating well and that the weight losswas related to diarrhea. He was changed from metformin to farxiga and this may have helped with thediarrhea. He had been given a prescription for creon but this was not affordable so he is not taking it now. He was told that if it was prescribed by someone here, it would cost 3$. He took samples for 5 days and that this helped with the diarrhea. He is currently having about 3 BM's per day (had up to 6 per day in the past). The stools are formed. He has neuropathy in his feet. He has some unsteadiness in the morning. They think he has blood in his urine on a couple of occasions. 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 While in [facility], he presented with chest pain and [...] that upfront chemotherapy was also discussed. We have requested the pathology for review at [facility] and have also requested that images be sent. I will plan to review his case and images at our GI Tumor Board for assessment of resectablity. I will also make a referral to Dr. Balbuena or Dr. Espinosa. We discussed that we generally recommend a diagnosticlaparoscopy to complete the staging. Assuming no evidence of metastatic disease, our approach to therapy is generally one of neoadjuvant chemotherapy [...] in the absence of cold, hypersensitivity reactions, angina/AL and others. He was given an informational handout regarding mFolfirinox. Blood will be drawn for PGX to be sure he doesn't have variant in DPYD or UGT1A1 that would put himat high risk of severe fluoropyrimidine related toxicity. I will ask that this be done when he is seen at [facility], along with baseline labs. This will need to be reviewed prior to beginning therapy. I will make a referral to the Familial Cancer Program for discussion of genetic testing. If genetictesting showed a BRCA or PALB2 mutation, he may be eligible for a clinical trial looking at the useolaparib following completion of chemotherapy and surgery to see if this improves RFS. He will be followed also by our clinical commercial loan coordinator, Lupe Velasquez. Plan: - Get outside images: CT chest, CT a/p and pet scan - Obtain outside pathology for review at [facility] - [facility] - F/u after Tumor Board discussion - Referral to Pancreatobiliary surgeon at [facility] (Dr. Balbuena or Dr. Espinosa) - Labs at [facility], same day as surgery appt - to include PGX testing - Referral to our Clinical Presentation Team Member, Lupe Velasquez - Referral to Familial cancer Program - f/u in [facility] for neoadjuvant therapy * Kristi Alvarado RN - 06/07/2023 3:00 PM EDT [facility] Patient Medical Oncology Note SOCIAL ASSESSMENT: See [facility] social assessment information entered. 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 Abbi Reynolds at [facility] Rx insurance? [ ] yes [ ] no Local Pharmacy: [facility] FUNCTIONAL SCREENING: Balance difficulty: [ ]no [ X ]yes At risk for fall: [ ] no [ X] yes If yes, actions implemented to prevent fall. Patient/family instructed to avoid independent ambulation. Use wheelchair and ask for assistance of staff while in the clinic. ADL [ X ] no limits [ ] needs dressing assistance [ ] needs meal assistance Assistive device:[ ]none [ X ]cane [ ]walker [ ]wheelchair [ ]other: explain PAIN ASSESSMENT: [ 0 ] out of 10 Location: LEARNING STYLE: Learning Needs Assessment up to date (yearly) [ X ] TEACHING: __ NCI ???Chemotherapy and You?? and folder given X_ Specific chemotherapy literature provided and reviewed with patient VASCULAR ACCESS ASSESSMENT: getting chemo? [ ]yes [ ]no Need port? [ X ] yes [ ] no documented in this encounter Plan of Treatment Upcoming Encounters Date Type Department Care Team (Late st Contact Info) Description 10/11/2023 10:00 AM EDT Tech [place] [address] Giacomo Queen 10/11/2023 11:15 AM EDT Office Visit [place] [phone] Basim Barr MD [facility] [place] [address] 10/18/2023 9:00 AM EDT Office Visit Hematology/Oncology at [address] [phone] Cl Hess MD [facility] [place] [address] Yessi Renee APRN [address] [place] [address] DR HEMATOLOGY AND ONCOLOGY [place], [place] [id number] 10/18/2023 9:30 AM EDT Infusion Hematology Oncology at [address] [phone] 10/24/2023 9:30 AM EDT Scheduled View Only Radiation Oncology at [address] [phone] [facility]agne 10/24/2023 10:00 AM EDT Office Visit Radiation Oncology at [address] [phone] Bigg Peters MD [address] [place] [address] DR RADIATION ONCOLOGY [place], [place] [address] 11/01/2023 9:00 AM EDT Office Visit Hematology/Oncology at [address] [phone] Cl Hess MD [facility] [place] [address] Yessi Renee APRN [address] [place] [address] DR HEMATOLOGY AND ONCOLOGY [place], [place] [phone] 11/01/2023 9:30 AM EDT Infusion Hematology Oncology at [address] [phone] 12/24/2023 1:00 PM EDT TH Visit (TeleHealth) Radiation Oncology at [address] [phone] Ping Moore PA [facility] [place] [address] Scheduled Referrals Name Type Priority Associated Diagnoses Orde r Schedule Referral to Familial Cancer Program (Genetics) Outpatient Referral Routine Malignant neoplasm of head of pancreas Ordered: 06/06/2023 Referral to General Surgery Outpatient Referral Routine Malignant neoplasm of head of pancreas Ordered: 06/06/2023 documented as of this encounter Visit Diagnoses Diagnosis Malignant neoplasm of head of pancreas Pancreatic insufficiency Other specified disease of pancreas documented in this encounter Care Teams Cigarette Package Examiner Relationship Specialty Start Date End Date Alo Carey DO [address] [place] [address] [place] [address] PCP - General Internal Medicine 08/31/20 07/03/23 documented as of this encounter
--- OUTSIDE RECORDS SUMMARY | 2023-10-06 00:39 | XMS_ITS | Encounter Summary ---
Author Organization Counts Include [facility] Address [facility] [place] [address] Care Team Providers Care Ambulance Attendant Name Role Phone Alo Carey DO Primary Care Provider [phone] Encounter Details Date Type Department Care Team (Latest Contact Info) Description 06/18/2023 Multidisciplinary Ca re Committee Hematology [place] [address] Cl Hess MD [facility] [place] [place] [address] Malignant neoplasm of head of pancreas Social History Tobacco Use Types Packs/Day Years Used Date Smoking Tobacco: Former Cigarettes 4 30 1 963 - 1992 Smokeless Tobacco: Never Alcohol Use Standard Drinks/Week Comments Yes 7 (1 standard drink = 0.6 oz pur e alcohol) [facility] Utilities Answer Date Recorded In the past 12 months has [employer], gas, oil, or water [employer] threatened to shut off services in your [...] Progress Notes * Cl Hess MD - 06/18/2023 11:59 PM EDT GI - Tumor Board Note Date Presented: 06/18/2023 Presenting Physician: Jimena Diagnosis/Tumor Site:Pancreas Is this Metastatic Disease: No Synopsis of History/HPI: 73 yo, h/o multiple medical problems as above, including colon cancer (resected in 2008), prostate cancer (s/p androgen deprivation and RT), ASCVD (sp 3v CABG), PVDz s/p carotid endarterectomy, prior CVA, DM and others. 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 While in [facility], he presented with chest pain and [...] metastatic disease/disease progression on interim staging evaluation. DISCLAIMER: The patient was discussed and the tumor board made recommendations but it is ultimatelyup to the treatment provider(s) and the patient to determine the patient???s care. documented in this encounter Plan of Treatment Upcoming Encounters Date Type Department Care Team (Late st Contact Info) Description 10/11/2023 10:00 AM EDT Tech Visit [place] [phone] Giacomo Queen 10/11/2023 11:15 AM EDT Office Visit [place] [phone] Basim Barr MD [facility] [place] [address] 10/18/2023 9:00 AM EDT Office Visit Hematology/Oncology at [address] [phone] Cl Hess MD [facility] [place] [address] Yessi Renee [address] HEMATOLOGY AND ONCOLOGY [place], [place] [phone] 10/18/2023 9:30 AM EDT Infusion Hematology Oncology at [address] [phone] 10/24/2023 9:30 AM EDT Scheduled View Only Radiation Oncology at [address] [phone] Rad Nurse, [facility] 10/24/2023 10:00 AM EDT Office Visit Radiation Oncology at [address] [phone] Bigg Peters MD [address] [place] [address] DR RADIATION ONCOLOGY [place], [place] [phone] 11/01/2023 9:00 AM EDT Office Visit Hematology/Oncology at [address] [phone] Cl Hess MD [facility] [place] [address] Yessi Renee [address] HEMATOLOGY AND [place]OGY [place], [place] [address] 11/01/2023 9:30 AM EDT Infusion Hematology Oncology at [address] [phone] 12/24/2023 1:00 PM EDT TH Visit (TeleHealth) Radiation Oncology at [address] [phone] Ping Moore PA [facility] DR HEMATOLOGY [place] [address] documented as of this encounter Results * Request For 2nd [...] who have questions please contact the health child care aide that requested your imaging first. ? Narrative 06/18/2023 9:36 AM EDT EXAMINATION: * ??REQUEST FOR 2ND READ CT CHEST AND ABDOMEN * ??CT OF THE CHEST WITHOUT INTRAVENOUS CONTRAST. ?? * ??CT OF THE ABDOMEN WITH INTRAVENOUS CONTRAST. CLINICAL HISTORY: 73-year-old male recently diagnosed with pancreatic cancer around subcutaneous alignment. ??Staging. ??Assessment for metastatic disease. Request for second interpretation of outside imaging study * ??Sending Institution [facility] * ??Date of exam [id number] * ??I believe a reinterpretation of this exam may alter care of Patient. Yes TECHNIQUE: CT of the chest was obtained without intravenous contrast also performed at the [facility] also performed on May 22, 2023. ?? CT of the abdomen with intravenous contrast was performed at the [facility] on May 22, 2023. ??Helical CT images [...] evaluation of the mediastinum, and vascular structures. Regulatory And Compliance Technician Images: Noncontributory. CT OF THE CHEST: Pulmonary [...] of outside imaging study * Sending Institution [facility] * Date of exam [id number] * I believe a reinterpretation of this exam may alter care of Patient.Yes TECHNIQUE: CT of the chest was obtained without intravenous contrastalso performed at the [facility] also performed onMay 22, 2023. CT [facility] the [facility] Hel[facility] CT imagesof [...] limits evaluation of themediastinum, and vascular structures. Regulatory And Compliance Technician Images: Noncontributory. CT OF THE CHEST: Pulmonary [...] pancreatic duct is dilated, with a maximal bfacqlky66 mm within the pancreatic neck. Vascular involvement: [...] patients who have questions please contactthe health child care aide that requested your imaging first. 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
--- OUTSIDE RECORDS SUMMARY | 2023-10-06 00:39 | XMS_ITS | Encounter Summary ---
Author Organization [facility] [place] [address] Care Team Providers Care Private Tutor Name Role Phone Alo Carey Primary Care Provider [phone] Reason for Visit * Reason Comments Medication Refill Encounter Details Date Type Department Care Team (Late st Contact Info) Description 12/22/2021 Refill Radiation Oncology at [address] [phone] Bigg Peters MD [address] [place] [address] [place] [address] Malignant neoplasm of prostate Social History Tobacco Use Types Packs/Day Years Used Date Smoking Tobacco: Former Cigarettes 4 30 1 963 - 1992 Smokeless Tobacco: Never Alcohol Use Standard Drinks/Week Comments Yes 7 (1 standard drink = 0.6 oz pur e alcohol) Sex and Gender Information Value Date Recorded Sex Assigned at Not on file Gender Identity Not on file Sexual Orientation Not on file documented as of this encounter Miscellaneous Notes * Telephone Encounter - Swapna Castro RN - 12/22/2021 5:24 PM EDT Called patient to verify pharmacy as [place]. Patient is in [place] for the next 5 months. Patient has 5 days left of Flomax and needs new prescription. Patient was questioning weather he still needed to take it or not. Patient plans to trial being off of it for last 5 doses and see how it goes to see if it makes a difference in urinary symptoms. Currently patient has nocturia 1-2 times, no dysuria and mild urinary frequency during the day, no incontinence. Refill order pending to so patient does have it in case he decided to continue medication. documented in this encounter Plan of Treatment Upcoming Encounters Date Type Department Care Team (Late st Contact Info) Description 10/11/2023 10:00 AM EDT Tech Visit [place] [address] Giacomo Queen 10/11/2023 11:15 AM EDT Office [place] [phone] Basim Barr MD [facility] [place] [address] 10/18/2023 9:00 AM EDT Office Visit Hematology/Oncology at [address] [phone] Cl Hess MD [facility] [place] [address] Yessi Renee APRN [address] [place] [address] DR HEMATOLOGY AND ONCOLOGY [place], [place] [phone] 10/18/2023 9:30 AM EDT Infusion Hematology Oncology at [address] [phone] 10/24/2023 9:30 AM EDT Scheduled View Only Radiation Oncology at [address] [phone] [facility] 10/24/2023 10:00 AM EDT Office Visit Radiation Oncology at [address] [phone] Bigg Peters MD [address] [place] [address] DR RADIATION ONCOLOGY [place], [place] [address] 11/01/2023 9:00 AM EDT Office Visit Hematology/Oncology at [address] [phone] Cl Hess MD [facility] [place] [place] [address] Yessi Renee APRN [address] [place] [address] DR HEMATOLOGY AND ONCOLOGY [place], [place] [phone] 11/01/2023 9:30 AM EDT Infusion Hematology Oncology at [address] [phone] 12/24/2023 1:00 PM EDT TH Visit (TeleHealth) Radiation Oncology at [address] [phone] Ping Moore PA [facility] DR [place] [address] documented as of this encounter Visit Diagnoses Diagnosis Malignant neoplasm of prostate documented in this encounter Care Teams Private Tutor Relationship Specialty Start Date End Date Alo Carey DO [address] [place] [address] [place] [address] PCP - General Internal Medicine 08/31/20 07/03/23 documented as of this encounter
--- OUTSIDE RECORDS SUMMARY | 2023-10-06 00:39 | XMS_ITS | Encounter Summary ---
[place] [address] Care Team Providers Care Dry Cleaner Name Role Phone Alo Carey DO Primary Care Provider [phone] Reason for Visit * Reason Comments Medication Refill Encounter Details Date Type Department Care Team (Late Contact Info) Description 12/22/2021 Refill Radiation Oncology at [address] [phone] Bgig Peters MD [address] [place] [address] [place] [address] Malignant neoplasm of prostate Social [...] Encounters Date Type Department Care Team (Late Contact Info) Description 10/11/2023 10:00 AM EDT Tech [place] [phone] Giacomo Queen 10/11/2023 11:15 AM EDT Office Visit [place] [phone] Basim Barr MD [facility] [place] [address] 10/18/2023 9:00 AM EDT Office Visit Hematology/Oncology at [address] [phone] 34 Cl Hess MD [facility] [address] Yessi Renee, [address] HEMATOLOGY AND ONCOLOGY [place], [place] [address] [phone] 10/18/2023 9:30 AM EDT Infusion Hematology Oncology at [address] [phone] 10/24/2023 9:30 AM EDT Scheduled View Only Radiation Oncology at [address] [phone] Rad Nurse, [facility] 10/24/2023 10:00 AM EDT Office Visit Radiation Oncology at [address] [phone] Bigg Peters MD [address] [place] [address] DR RADIATION ONCOLOGY [place], [place] [phone] 11/01/2023 9:00 AM EDT Office Visit Hematology/Oncology at [address] [phone] Cl Hess MD [facility] [place] [address] Yessi Renee [address] HEMATOLOGY AND ONCOLOGY [place], [place] [address] [phone] 11/01/2023 9:30 AM EDT Infusion Hematology Oncology at [address] [phone] 12/24/2023 1:00 PM EDT TH Visit (TeleHealth) Radiation Oncology at [address] [phone] Ping Moore PA [facility] DR [place] [address] documented as of this encounter Visit Diagnoses Diagnosis Malignant neoplasm of prostate documented in this encounter Care Teams Dry Cleaner Relationship Specialty Start Date End Date Alo Carey DO [address] [place] [address] [place] [phone] PCP - General Internal Medicine 08/31/20 07/03/23 documented as of this encounter
--- OUTSIDE RECORDS SUMMARY | 2023-10-06 00:39 | XMS_ITS | Encounter Summary ---
Author Organization [facility] [place] [address] Care Team Providers Care Medical Office Clerk Name Role Phone Alo Carey Primary Care Provider Encounter Details Date Type Department Care Team (Latest Contact Info) Description 06/07/2023 Travel Social History Tobacco Use Types Packs/Day Years Used Date Smoking Tobacco: Former Cigarettes 4 30 963 1992 Smokeless Tobacco: Never Alcohol Use Standard Drinks/Week Comments Yes 7 (1 standard drink = 0.6 oz pur e alcohol) [facility] Utilities Answer Date Recorded In the past 12 months has e electric, gas, oil, or water [employer] threatened to shut off services in your [...] AM EDT Tech [place] [address] Giacomo Queen 10/11/2023 11:15 AM EDT Office [place] [address] Basim Barr MD [facility] [place] [address] 10/18/2023 9:00 AM EDT Office Visit Hematology/Oncology at [address] [phone] Cl Hess MD [facility] [address] Yessi Renee APRN [address] [place] [address] DR HEMATOLOGY AND ONCOLOGY [place], [place] [phone] 10/18/2023 9:30 AM EDT Infusion Hematology Oncology at [address] [phone] 10/24/2023 9:30 AM EDT Scheduled View Only Radiation Oncology at [address] [phone] Jeronimo Nurse La N[place] 10/24/2023 10:00 AM EDT Office Visit Radiation Oncology at [address] [phone] Bigg Peters MD [address] [place] [address] DR RADIATION ONCOLOGY [place], [place] [id number] 11/01/2023 9:00 AM EDT Office Visit Hematology/Oncology at [address] [phone] Cl Hess MD [facility] [address] Yessi Renee APRN [address] [place] [address] DR HEMATOLOGY AND ONCOLOGY [place], [place] [phone] 11/01/2023 9:30 AM EDT Infusion Hematology Oncology at [address] [phone] 12/24/2023 1:00 PM EDT TH Visit (TeleHealth) Radiation Oncology at [address] [phone] Ping Moore PA [facility] [address] [place] [address] documented as of this encounter Visit Diagnoses Not on filedocumented in this encounter Care Teams Medical Office Clerk Relationship Specialty Start Date End Date Alo Carey DO [address] [place] [address] [place] [phone] PCP - General Internal Medicine 08/31/20 07/03/23 documented as of this encounter
--- OUTSIDE RECORDS SUMMARY | 2023-10-06 00:39 | XMS_ITS | Encounter Summary ---
[place] [address] Care Team Providers Care Die Maker Trim Name Role Phone CherryAlo Lon RUTHERFORD Primary Care Provider [phone] Reason for Referral * Consultation (Routine) - Closed Specialty Diagnoses / Procedures Referred By Marques livingston Referred To Contact Diagnoses Malignant neoplasm of prostate Bela Charles ADULT DAY CARE WORKER [facility] [place] [address] Rock Myers MD [address] [place] [id number] Referral ID Status Reason Start Date Expiration Date V isits Requested Visits Authorized [id number] Closed Consult, Test & Treat 07/31/2022 01/27/2023 3 3 Encounter Details Date Type Department Care Team (Late st Contact Info) Description 07/31/2022 3:15 PM EDT Office Visit Radiation Oncology at [address] [phone] Bela Charles ADULT DAY CARE WORKER [facility] [place] [address] Malignant neoplasm of prostate (Primary Dx) Social History Tobacco Use Types Packs/Day Years [...] Sign Reading Time Taken Comments Blood Pressure 158/74 07/31/2022 2:56 PM EDT Pulse 78 07/31/2022 2:56 PM EDT Temperature 36.7 ??C (98.1 ??F) 07/31/2022 2:56 PM ED T Respiratory Rate 18 07/31/2022 2:56 PM EDT Oxygen Saturation 96% 07/31/2022 2:56 PM EDT Inhaled Oxygen Concentration - - Weight 103.9 kg (229 lb) 07/31/2022 2:56 PM EDT Height 180.3 cm (5' 11) 07/31/2022 2:56 PM EDT Body Mass Index 31.94 07/31/2022 2:56 PM EDT documented in this encounter Progress Notes * Bela Charles, ADULT DAY CARE WORKER - 07/31/2022 3:15 PM EDTSummary: 72 year old M dx High Risk Prostate Cancer. LT ADT planned x 18 mos, compl VMRT 09/06/21 [facility] RADIATION ONCOLOGY [place] [phone] Phone: RADIATION ONCOLOGY FOLLOW UP NOTE Dr Peters confirms that Mr Sadler does not need to continue the lupron: Testosterone levels are still in the castrate range and it has been ~18 months since he started ADT Patient Wero Sadler 1950 PCP: Alo Carey DO Urologist: Radiation oncologist: Dr. Bigg Peters Chief Complaint: follow up/labs/leuprolide for prostate cancer Time since completed RT:09/06/21 ADT:None further Dr Peters confirms that Mr Sadler does not need to continue the lupron: Testosterone levels are still in the castrate range and it has been ~18 months since he started ADT Current treatment:Surveillance HPI: Per Dr Bigg Peters Patient name: Wero Sadler Date of : 1950 ? Referring: Dr Oniel Myers ?? PCP: Dr Carey ? Chief complaint: High Risk Prostate Cancer ?? (Gl 6, PSA 21, cT1c / mrT3a) ? Treatment Details ?? Intent: Definitive (Curative) ?? Concurrent Therapy: LT-ADT (planned 18 months) ?? ONCBCN ONCOLOGY (AMB) 01/31/2021 06/28/2021 leuprolide (Lupron Depot) IM 7.5 mg 22.5 mg ? Modality: ?? VMAT ?? Treatment Site Prostate / Proximal SV / Pelvis Prescribed Dose 70Gy in 28 fractions / 58.8Gy / 50.4Gy in 28 fractions ? Completion Date 09/06/21 ? Interval Clinical Course ?? General No changes since last seen. Overall feels well. No HF. ?? GI No diarrhea. Stools normalized. ? Variable LUTS, seems to correlate to fluid intake. Also drinking beer, coffee daily. Taking flomax nightly which is helpful. ?? Pain: ?? Pain score today is 0/10. He has stopped taking Aleve. ? Prostate IPSS and DWAIN(Pt Entered): last 5 values ?? Prostate Today's Scores 01/20/2021 04/26/2021 09/21/2021 Sexual Health Inventory for Men 1 (Severe ED) - - International Prostate Symptom Score 9 (Moderate LUTS) 4 ( Mild LUTS) 14 (Moderate LUTS) ? Impression/Plan ?? Tolerance to radiotherapy/ADT: Tolerated as anticipated ?? He will get a 6 month Lupron (45mg) today will bring him up to ~1yr and 2 months. He will be in [place] at time his next shot is due and requests to have it there. He will need a 4 month shot at that timeto get him up to the recommended 18 month duration of ADT. ?? He will call us when he's settled in this fall and let us know where he plans to go. We will get a PSA checked at that time as well. ?? LUTS ?? Cont flomax 0.4mg qhs PRN ?? Followup: RV 1 year in person due to his travel plans ? Interim HPI: I reviewed the following outside notes: [employer] [facility] he and his partner go there qday for drinks when theyare down for the winter. He has been with current partner x 1 years after his . Had 3 TIAs Feb 20, Apr 14 and then May 21. Does not recall first time, his partner relates thathe had a blank look and the ambulance came to transport him. Then had unintelligible speech x 2 episodes[address] not [address] Dr Carey since returning home. [place] [facility] for appt recently with neurophthalmology. He requested PCP get MRI or R eye. In communication with Dr Peters, confirms that Mr Sadler does not need to continue the lupron: Testosterone levels are still in the castrate range and it has been ~18 months since he started ADT Review of Symptoms: I reviewed the IPSS/DWAIN/Epic-Cp survey results from today Pt is blind and does not wish to attempt filling out the review. Patient concerns for today's visit: Has extensive multiple surgeries in hx. General:Feels he is doing well, urinary flow increasing. Fatigue:He likes to watch TV and less active outside because he does not want to fall. He goes to [employer] and pushes cart to walk. Weight/appetite/diet: Has stayed pretty stable 254lb sev months ago. Lost some wt, 20lb by intention over last sev months he states Respiratory:no resp illnesses GI: no n/v/d/c. No blood in stool :no prob with urination, no hematuria Endocrine: no issues, no hot flashes Sexual health:no sex in 15 years. ED has been present x years. Muscle skeletal: bilat hip replacements, R hip Nov 17, 2021, L oct 09, 2020. Ismael Wu MD .He had a recent fall June 11. XRays taken but could not see any problems. May consider MRI in future as pain continues Bone health: taking Vit D/ Calcium Neuro: recent hx TIAs x 3 when in the [place] over winter. Mood:feels he is ok Sleep: no prob sleeping. Even with hip pain he gets into best postion and can sleep well. Function:retired Exercise:minimal as afraid of falls Smoking:no cig x 30 years. Alcohol:does drink wine 1-2 drinks q day. Sunscreen: Support/ social relationships:female partner this last 1 year. Advanced directives Financial/transportation concerns: Health maintenance:PCP Family history/genetic testing: Performance Status: KPS Score ECOG Grade Definition 90-100 0 Fully active, able to carry on all pre-disease performance without restriction x 70-80 1 Restricted in physically strenuous activity but ambulatory and able to carry out work of a light or sedentary nature, e.g., light house work, office work 50-60 2 Ambulatory and capable of all selfcare but unable to carry out any work activities; up and about more than 50% of waking hours 30-40 3 Capable of only limited selfcare; confined to bed or chair more than 50% of waking hours 10-20 4 Completely disabled; cannot carry on any selfcare; totally confined to bed or chair Physical Examination: Body mass index is 31.94 kg/m??. BP 158/74 (Patient Position: Sitting) Pulse 78 Temp 36.7 ??C (98.1 ??F) (Temporal) Resp 18 Ht 180.3 cm (5' 11) Wt 103.9 kg (229 lb) Constitutional: seen in clinic, no distress HENT: normocephalic, anicteric Cardiovascular: Rate and Rhythm: Normal rate and regular rhythm. Heart sounds: Normal heart sounds. No murmur Pulmonary: Effort: Pulmonary effort is normal. Breath sounds: Normal breath sounds. No wheezing or rales. Genitourinary: Rectum: deferred, PSA low stable Musculoskeletal: Normal range of motion. General: No swelling or deformity. Comments: Ambulates without assistance Skin: General: Skin is warm and dry. Neurological: General: No focal deficit present. Mental Status: alert and oriented to person, place, and time. Gait: Gait normal. Psychiatric: Mood and Affect: Mood normal. Behavior: Behavior normal. Thought Content: Thought content normal. Judgment: Judgment normal. New Labs Reviewed this visit: Date PSA Test Notes 06/29/22 0.05 50 11/14/2021 0.05 Assessment: 72 y.o. presenting for follow up/ lab for prostate cancer Per Ana Castro RN review of all records for Lupron See below for Lupron dosing: Per Dr. Peters pt. Was to receive total of 18 months therapy. ?? - 01/31/2021 Initial dose 7.5mg (1 month) - 03/31/2021 's office 22.5mg (3 month) - 06/28/2021 22.5mg (3 month) -09/21/2021 45mg (6 month) On pt return today he states that in March he was to receive a dose of Lupron when in [place] but labs were done there and he never received a dose. He comes today with 5 month block of time off Lupron. On review of situation, Dr Peters felt pt is still low enough in Test level and no changes in PSA that he does not need further lupron. Before this had been determined in communication, Mr Sadler had agreed to get additional CMP and CBC check in case we were going to administer one more dose. Further dosing not needed at this point. Urology consult to Dr Myers was cancelled as not needed. Medical Decision Making/Recommendations/Plan: # prostate cancer: reviewed PSA results. No concerning reported symptoms or physical examination findings today # effects of EBRT: Acute: 1. LUTS (lower urinary tract symptoms) 2. Bowel dysfunction 3. Sexual health/Erectile Dysfunction 4. Fatigue 5. Mood changes Late: We reviewed potential late effects of radiation that require medical evaluation including : 1. Changes in urinary flow/difficulty passing urine (scarring from radiation) 2. Blood in urine (may be infection, inflammation bladder wall (cystitis), formation of telangiectasia (small, thin blood vessels that are dilated or broken, near the surface of the bladder and may bleed) or bladder/genitourinary cancer 3. Blood in bowel movements (stools)- maybe from hemorrhoids, telangiectasia from radiation, colorectal cancer Symptoms that you should bring to the attention of your provider: Difficulty or changes in your urine flow Blood in your urine or stool # ADT: Dr Peters confirms that Mr Sadler does not need to continue the lupron: Testosterone levels are still in the castrate range and it has been ~18 months since he started ADT # follow up: Per NCCN guidelines, PSA and history/physical every 6-12 months X 5 years, then annually. Annual MELIA (unless PSA undetectable or prostatectomy). PSA may be checked more frequently depending on risk level or other patient specific factors. Next visit:6 months Labs: PSA, testosterone Wero Sadler had the opportunity to ask questions and I answered them to the best of my knowledge. Wero Sadler agreed to contact radiation oncology in between visits if he has any questions/concerns or new symptoms in regards to the radiation therapy/prostate cancer Bela Charles MSN, ADULT DAY CARE WORKER, CHILD WELFARE CONSULTANT-C Nurse Practitioner Radiation Oncology documented in this encounter Plan of Treatment Upcoming Encounters Date Type Department Care Team (Late st Contact Info) Description 10/11/2023 10:00 AM EDT Tech [place] [phone] Giacomo Queen 10/11/2023 11:15 AM EDT Office Visit [place] [phone] Basim Barr MD [facility] [place] [address] 10/18/2023 9:00 AM EDT Office Visit Hematology/Oncology at [address] [phone] Cl Hess MD [facility] [place] [address] Yessi Renee APRN [address] [place] [address] DR HEMATOLOGY AND ONCOLOGY [place], [place] [phone] 10/18/2023 9:30 AM EDT Infusion Hematology Oncology at [address] [phone] 10/24/2023 9:30 AM EDT Scheduled View Only Radiation Oncology at [address] [phone] St La Nena Champagne 10/24/2023 10:00 AM EDT Office Visit Radiation Oncology at [address] [phone] Bigg Peters MD [address] [place] [address] DR RADIATION ONCOLOGY [place], [place] [phone] 11/01/2023 9:00 AM EDT Office Visit Hematology/Oncology at [address] [phone] Cl Hess MD [facility] [place] [address] Yessi Renee APRN [address] [place] [address] DR [place] [address] 11/01/2023 9:30 AM EDT Infusion Hematology Oncology at [address] [phone] 12/24/2023 1:00 PM EDT TH Visit (TeleHealth) Radiation Oncology at [address] [phone] Ping Moore PA [facility] DR [place] [address] Scheduled Referrals Name Type Priority Associated Diagnoses Orde r Schedule Referral to Urology Outpatient Referral Routine Malignant neoplasm of prostate Ordered: 07/31/2022 documented as of this encounter Results * Testosterone, total (06/25/2023 2:37 PM EDT) [facility] Testosterone 2.12 1.93 - 7.40 ng/mL [facility] Comment: Pediatric Reference Ranges: ? [...] Stated reference ranges derived from review of [employer] [facility] Testosterone II 01/2022, v2.0 Blood 06/25/2023 2:37 PM EDT 06/25/2023 2:43 PM EDT Narrative Resulting Agency Comment Spec In Lab Bela Charles ADULT DAY CARE WORKER CHEMISTRY ORDERABLES Performing Organization Address City/State/[facility] Co de Phone Number [facility] [place] [address] * PSA (Ultrasensitive) (06/25/2023 2:37 PM EDT) Prostate Specific Antigen (Ultrasensitive) 0.09 0.00 - 4.00 ng/mL [facility] Comment: PLEASE NOTE: The above [...] Agency Comment Spec In Lab Bela Charles ADULT DAY CARE WORKER CHEMISTRY ORDERABLES [facility] [place] [address] documented in this encounter Visit Diagnoses Diagnosis Malignant neoplasm of prostate- Primary documented in this encounter Care Teams Die Maker Trim Relationship Specialty Start Date End Date Alo Carey DO [address] [place] [address] [place] [phone] PCP - General Internal Medicine 08/31/20 07/03/23 documented as of this encounter
--- OUTSIDE RECORDS SUMMARY | 2023-10-06 00:39 | XMS_ITS | Encounter Summary ---
[place] [address] Care Team Providers Care Biosecurity Officer Name Role Phone Alo Carey Primary Care Provider [phone] Encounter Details Date Type Department Care Team (Late st Contact Info) Description 10/12/2022 9:30 AM EDT Tech [place] [phone] Floridalma Brewer Presence of internal carotid stent Social History Tobacco Use Types Packs/Day Years [...] AM EDT Tech [place] [phone] Giacomo Queen 10/11/2023 11:15 AM EDT Office [place] [phone] Soledad Barr MD [facility] [place] [address] 10/18/2023 9:00 AM EDT Office Visit Hematology/Oncology at [address] [phone] Cl Hess MD [facility] [place] [address] Yessi Renee [address] HEMATOLOGY AND ONCOLOGY [place], [place] [phone] 10/18/2023 9:30 AM EDT Infusion Hematology Oncology at [address] [phone] 10/24/2023 9:30 AM EDT Scheduled View Only Radiation Oncology at [address] [phone] Rad Nurse, [facility] 10/24/2023 10:00 AM EDT Office Visit Radiation Oncology at [address] [phone] Bigg Peters MD [address] [place] [address] DR RADIATION ONCOLOGY [place], [place] [phone] 11/01/2023 9:00 AM EDT Office Visit Hematology/Oncology at [address] [phone] Cl Hess MD [facility] [place] [address] Yessi Renee [address] HEMATOLOGY AND ONCOLOGY [place], [place] [address] 11/01/2023 9:30 AM EDT Infusion Hematology Oncology at [address] [phone] 12/24/2023 1:00 PM EDT TH Visit (TeleHealth) Radiation Oncology at [address] [phone] Ping Moore PA [facility] DR [place] [address] documented as of this encounter Procedures Procedure Name Priority Date/Time Associated Diagnosis Comments CAROTID DUPLEX, BILATERAL Routine 10/12/2022 9:31 AM EDT Presence of internal carotid stent documented in this encounter Results * Carotid Duplex, Bilateral (10/12/2022 9:31 AM EDT) VB Text Report Department: Vascular Surgery Lab Patient: [id number] (WERO JARRETT) CPT: 89115 Referring Physician: SOLEDAD BARR ?? Indications: HX Right carotid stent, Left CEA ?? ? Carotid stenosis Findings: Stent 1 - Pre ? PSV (cm/s): 35 ? EDV (cm/s): 12 ? Location: Right Common Carotid Stent 1 - Prox ? PSV (cm/s): 45 ? EDV (cm/s): 12 ? Location: Right Common Carotid Stent 1 - Mid ? PSV (cm/s): 64 ? EDV (cm/s): 17 ? Location: Right Internal Carotid Stent 1 - Distal ? PSV (cm/s): 70 ? EDV (cm/s): 14 ? Location: Right Internal Carotid Stent 1 - Post ? PSV (cm/s): 67 ? EDV (cm/s): 19 ? Location: Right Internal Carotid ICA Proximal, Right ? PSV (cm/s): 73 ? EDV (cm/s): 16 ? ICA/CCA: 2.4 ? Plaque Structure: Echogenic ? Plaque Surface: Smooth ? %Stenosis: <15% ICA Distal, Right ? PSV (cm/s): 62 ? EDV (cm/s): 16 ? ICA/CCA: 2.1 CCA Distal, Right ? PSV (cm/s): 30 ? EDV (cm/s): 9 ? %Stenosis: Minimal CCA Proximal, Right ? PSV (cm/s): 54 ? EDV (cm/s): 13 External Carotid Artery, Right ? PSV (cm/s): 227 ? EDV (cm/s): 17 ? %Stenosis: >50% Vertebral, Right ? PSV (cm/s): 58 ? EDV (cm/s): 15 ? Direction of Flow: Antegrade ICA Proximal, Left ? PSV (cm/s): 76 ? EDV (cm/s): 11 ? ICA/CCA: 0.8 ? Plaque Structure: Echogenic ? Plaque Surface: Smooth ? %Stenosis: 16-49% ICA Distal, Left ? PSV (cm/s): 52 ? EDV (cm/s): 15 ? ICA/CCA: 0.5 CCA Distal, Left ? PSV (cm/s): 96 ? EDV (cm/s): 15 ? Plaque Structure: Echogenic ? Plaque Surface: Smooth ? %Stenosis: <50% CCA Proximal, Left ? PSV (cm/s): 116 ? EDV (cm/s): 14 External Carotid Artery, Left ? PSV (cm/s): 172 ? EDV (cm/s): 0 ? %Stenosis: <50% Vertebral, Left ? PSV (cm/s): 78 ? EDV (cm/s): 22 ? Direction of Flow: Antegrade Interpretation: RIGHT: A thin layer of circumferential plaque [...] normal antegrade Doppler waveforms and velocities bilaterally. Previous Carotid Studies: Date ?RIGHT ICA Stenosis ??PSV ?? Ratio ?? LEFT ICA Stenosis ?? PSV ?? Ratio ? 16-49% ? 136 ?? 3.10 ? 16-49% ? 95 ?1.10 ? <15% ? 74 ?2.30 ? 16-49% ? 97 ?1.00 Current Exam ? <15% ? 73 ?2.40 ? 16-49% ? 76 ?0.80 Electronically Signed by: SURESH HAYNES on 2022-10-15 11:57:33 AM [facility] VB Text Report End of Report [facility] 10/12/2022 9:31 AM EDT Soledad Barr MD VASCULAR ORDERABLES [facility] documented in this encounter Visit Diagnoses Diagnosis Presence of internal carotid stent documented in this encounter Care Teams Biosecurity Officer Relationship Specialty Start Date End Date Alo Carey DO [address] [place] [address] [place] [phone] PCP - General Internal Medicine 08/31/20 07/03/23 documented as of this encounter
--- OUTSIDE RECORDS SUMMARY | 2023-10-06 00:39 | XMS_ITS | Encounter Summary ---
Author Organization [facility] [place] [address] Care Team Providers Care Internal Audit Director Name Role Phone Alo Carey DO Primary Care Provider [phone] Encounter Details Date Type Department Care Team (Late st Contact Info) Description 11/20/2021 Notes [place] [address] Olena Perez Social History Tobacco Use Types Packs/Day Years [...] as of this encounter Progress Notes * Olena Perez - 11/20/2021 1:16 PM EDT Study Title: Comparative Effectiveness of Pulmonary Embolism Prevention after hip and knee Replacement: Balancing Safety and Effectiveness. ?? Principle Bending Roll Operator: Dr. Chisholm ?? Velos #: [id number] ?? Subject #: [id number] ?? Call placed to subject to follow up on his first dose of Xarelto. Subject was discharged from hospital on 11/18/21 with no documentation of Xarelto administration. Subject was able to confirm that he took his first dose of Xarelto on 11/19/21 at approximately 1830. documented in this encounter Plan of Treatment Upcoming Encounters Date Type Department Care Team (Late st Contact Info) Description 10/11/2023 10:00 AM EDT Tech [place] [address] Giacomo Queen 10/11/2023 11:15 AM EDT Office Visit [place] [phone] Basim Barr MD [facility] [place] [address] 10/18/2023 9:00 AM EDT Office Visit Hematology/Oncology at [address] [phone] Cl Hess MD [facility] [place] [address] Yessi Renee APRN [address] [place] [address] DR HEMATOLOGY AND ONCOLOGY [place], [place] [phone] 10/18/2023 9:30 AM EDT Infusion Hematology Oncology at [address] [phone] 10/24/2023 9:30 AM EDT Scheduled View Only Radiation Oncology at [address] [phone] St [place] Champagne 10/24/2023 10:00 AM EDT Office Visit Radiation Oncology at [address] [phone] Bigg Peters MD [address] [place] [place] [address] DR RADIATION ONCOLOGY [place], [place] [address] 11/01/2023 9:00 AM EDT Office Visit Hematology/Oncology at [address] [phone] Cl Hess MD [facility] [place] [address] Yessi Renee APRN [address] [place] [address] DR HEMATOLOGY AND ONCOLOGY [place], [place] [address] 11/01/2023 9:30 AM EDT Infusion Hematology Oncology at [address] [phone] 12/24/2023 1:00 PM EDT TH Visit (TeleHealth) Radiation Oncology at [address] [phone] Ping Moore PA [facility] DR [place]ATOLOGY [place] [address] documented as of this encounter Visit Diagnoses Not on filedocumented in this encounter Care Teams Internal Audit Director Relationship Specialty Start Date End Date Alo Carey DO [address] [place] [address] [place] [phone] PCP - General Internal Medicine 08/31/20 07/03/23 documented as of this encounter
--- OUTSIDE RECORDS SUMMARY | 2023-10-06 00:39 | XMS_ITS | Encounter Summary ---
Author Organization [facility] Address [facility] [place] [address] Care Team Providers Care Toll Collector Supervisor Name Role Phone Alo Carey Primary Care Provider [phone] Encounter Details Date Type Department Care Team (Latest Contact Info) Description 07/31/2022 Travel Social History Tobacco Use Types Packs/Day [...] AM EDT Tech [place] [address] Giacomo Queen 10/11/2023 11:15 AM EDT Office [place] [address] Basim Barr MD [facility] [place] [address] 10/18/2023 9:00 AM EDT Office Visit Hematology/Oncology at [address] [phone] Cl Hess MD [facility] [place] [address] Yessi Renee [address] HEMATOLOGY AND ONCOLOGY [place], [place] [phone] 10/18/2023 9:30 AM EDT Infusion Hematology Oncology at [address] [phone] 10/24/2023 9:30 AM EDT Scheduled View Only Radiation Oncology at [address] [phone] [facility] [place] Champagne 10/24/2023 10:00 AM EDT Office Visit Radiation Oncology at [address] [phone] Bigg Peters MD [address] [place] [address] DR RADIATION ONCOLOGY [place], [place] [phone] 11/01/2023 9:00 AM EDT Office Visit Hematology/Oncology at [address] [phone] Cl Hess MD [facility] [place] [address] Yessi Renee [address] HEMATOLOGY AND ONCOLOGY [place], [place] [phone] 11/01/2023 9:30 AM EDT Infusion Hematology Oncology at [address] [phone] 12/24/2023 1:00 PM EDT TH Visit (TeleHealth) Radiation Oncology at [address] [phone] Ping Moore PA [facility] DR [place] [address] documented as of this encounter Visit Diagnoses Not on filedocumented in this encounter Care Teams Toll Collector Supervisor Relationship Specialty Start Date End Date Alo Carey DO [address] [place] [address] [place] [address] PCP - General Internal Medicine 08/31/20 07/03/23 documented as of this encounter
--- OUTSIDE RECORDS SUMMARY | 2023-10-06 00:39 | XMS_ITS | Encounter Summary ---
[place] [address] Care Team Providers Care Head Wrestling Coach Name Role Phone Alo Carey DO Primary Care Provider [phone] Reason for Visit * Reason Comments Medication Refill Encounter Details Date Type Department Care Team (Late Contact Info) Description 04/09/2022 Refill Radiation Oncology at [address] [phone] Bigg Peters MD [address] [place] [address] [place] [address] Malignant neoplasm of prostate Social [...] AM EDT Tech [place] [phone] Giacomo Queen 10/11/2023 11:15 AM EDT Office Visit [place] [phone] Basim Barr MD [facility] [place] [address] 10/18/2023 9:00 AM EDT Office Visit Hematology/Oncology at [address] [phone] Cl Hess MD [facility] [place] [address] Yessi Renee, [address] HEMATOLOGY [place]OGY [place], [place] [address] [phone] 10/18/2023 9:30 AM EDT Infusion Hematology Oncology at [address] [phone] 10/24/2023 9:30 AM EDT Scheduled View Only Radiation Oncology at [address] [address] Rad Nurse, [facility] 10/24/2023 10:00 AM EDT Office Visit Radiation Oncology at [address] [phone] Bigg Peters MD [address] [place] [address] DR RADIATION ONCOLOGY [place], [place] [phone] 11/01/2023 9:00 AM EDT Office Visit Hematology/Oncology at [address] [phone] Cl Hess MD [facility] [place] [address] Yessi Renee [address] HEMATOLOGY AND ONCOLOGY [place], [place] [address] [phone] 11/01/2023 9:30 AM EDT Infusion Hematology Oncology at [address] [phone] 12/24/2023 1:00 PM EDT TH Visit (TeleHealth) Radiation Oncology at [address] [address] Ping Moore PA [facility] DR [place] [address] documented as of this encounter Visit Diagnoses Diagnosis Malignant neoplasm of prostate documented in this encounter Care Teams Head Wrestling Coach Relationship Specialty Start Date End Date Alo Carey DO [address] [place] [address] [place] [phone] PCP - General Internal Medicine 08/31/20 07/03/23 documented as of this encounter
--- OUTSIDE RECORDS SUMMARY | 2023-10-06 00:39 | XMS_ITS | Encounter Summary ---
Author Organization [facility] [place] [address] Care Team Providers Care Talent Agent Name Role Phone Alo Carey DO Primary Care Provider [phone] Encounter Details Date Type Department Care Team (Late st Contact Info) Description 05/22/2023 Ancillary Procedure [place] [phone] Charu Balbuena MD [facility] [place] [address] Social History Tobacco Use Types Packs/Day Years [...] AM EDT Tech [place] [phone] Giacomo Queen 10/11/2023 11:15 AM EDT Office [place] [address] Basim Barr MD [facility] [place] [address] 10/18/2023 9:00 AM EDT Office Visit Hematology/Oncology at [address] [phone] Cl Hess MD [facility] [place] [address] Yessi Renee [address] HEMATOLOGY AND ONCOLOGY [place], [place] [address] [phone] 10/18/2023 9:30 AM EDT Infusion Hematology Oncology at [address] [phone] 10/24/2023 9:30 AM EDT Scheduled View Only Radiation Oncology at [address] [phone] Rad Nurse, [place] 10/24/2023 10:00 AM EDT Office Visit Radiation Oncology at [address] [phone] Bigg Peters MD [address] [place] [address] DR RADIATION ONCOLOGY [place], [place] [address] 11/01/2023 9:00 AM EDT Office Visit Hematology/Oncology at [address] [phone] Cl Hess MD [facility] [place] [address] Yessi Renee [address] HEMATOLOGY AND ONCOLOGY [place], [place] [address] 11/01/2023 9:30 AM EDT Infusion Hematology Oncology at [address] [phone] 75 12/24/2023 1:00 PM EDT TH Visit (TeleHealth) Radiation Oncology at [address] [phone] Ping Moore PA [facility] DR H[place]ATOLOGY [place] [address] documented as of this encounter Procedures Procedure Name Priority Date/Time Associated Diagnosis Comments FILM LIBRARY STORAGE ONLY CT CHEST ABDOMEN PELVIS Routine 05/22/2023 12:00 AM EDT documented in this encounter Results * Film Library- Storage Only CT Chest Abdomen Pelvis (05/22/2023 12:00 AM EDT) Narrative [facility] - 06/17/2023 2:54 PM EDT This exam is auto-finalizing. It's purpose is for storage only. Charu Balbuena MD IMG FILM LIBRARY O RDERABLES Performing Organization Address City/State/[facility] Co de Phone Number [place], [place] documented in this encounter Visit Diagnoses Not on filedocumented in this encounter Care Teams Talent Agent Relationship Specialty Start Date End Date Alo Carey DO [address] [place] [address] [place] [address] PCP - General Internal Medicine 08/31/20 07/03/23 documented as of this encounter
--- OUTSIDE RECORDS SUMMARY | 2023-10-06 00:39 | XMS_ITS | Encounter Summary ---
Author Organization [facility] [place] [address] Care Team Providers Care Oil Pipe Inspector Name Role Phone Alo Carey Primary Care Provider [phone] Reason for Visit * Reason Onset Date Comments Other 06/11/2023 outreach Encounter Details Date Type Department Care Team (Late st Contact Info) Description 06/11/2023 Telephone Hematology/Oncology at [address] [phone] Kaelyn Huitron, COMMERCIAL ATTORNEY OFFICE OF CARE MANAGEMENT Other (outreach) Social History Tobacco Use Types Packs/Day Years Used Date Smoking Tobacco: Former Cigarettes 4 30 1 1992 Smokeless Tobacco: Never Alcohol Use Standard Drinks/Week Comments Yes 7 (1 standard drink = 0.6 oz pur e alcohol) [facility] Utilities Answer Date Recorded In the past 12 months has [employer], gas, oil, or water [employer] threatened to shut off services in your [...] encounter Miscellaneous Notes * Telephone Encounter - Elana Kaelyn L, COMMERCIAL ATTORNEY - 06/11/2023 8:55 AM EDT Informed by Leah Gibson [facility] that Wero scored needs on his SDOH screen. Asked to contact him to discuss. Reason for Referral: Brief assessment of social and emotional needs. TC with Wero today to introduce myself and role of foster care social worker to assess/address barriers to getting to and through treatments; address support needs and connect with community services and resources as needed. SDOH Screening: + Family/Social Supports: Wero indicated his passed 3 years ago. His s/o Amy ended left him on Saturday after they returned home from 6 months in [place] He has 4 brothers who live near him and are his primary supports. He has a daughter in [facility] who he has no contact with. He has 2 step childrenin [place]. Living Situation/Daily Activities/Transportation: [facility] informed MAXI he is blind. He lives alone in his own home. He manages as best he can. He does not have any help in the home at this time. He uses[facility] for transportation and has them on speed dial. He plans to contact the [employer] to get signed up for MOWs. Work/Finances/Insurance: Wero is retired. He has income from . He has Medicare and AARP supplemental insurance. He has prescription assistance and his meds are usually affordable. He is concernedabout the cost of Creon and COMMERCIAL ATTORNEY asked Lupe Velasquez RD to reach out to him re this. Advance Directives: Wero indicated he has completed an advance directive but he needs to update it as it was done prior to his passing. Utilization of Community Resources: [facility]; [facility] Adjustment to Illness/Mental Health Concerns: Wero indicate it is unclear the plan for treatment at this time as his provider is waiting for some additional test results. Need to further assess howhe is coping. Identified Needs: Wero did not identify specific needs at this time. He is reaching out to the [employer]. COMMERCIAL ATTORNEY asked RD to reach out to Wero. Referrals:Wero indicate it is unclear the plan for treatment at this time as his provider is waiting for some additional test results. Will reassess his needs once his treatment plan is clarified. Social Work Interventions: Brief assessment Supportive Counseling Advance care planning Community Resource Plan: Informed pt of COMMERCIAL ATTORNEY availability and contact information. Will follow to assess/address psychosocial needs. MAXI Arteaga, NON DESTRUCTIVE TESTING SCIENTIST, OSW-C Claim Trainee [facility] documented in this encounter Plan of Treatment Upcoming Encounters Date Type Department Care Team (Late st Contact Info) Description 10/11/2023 10:00 AM EDT Tech Visit [place] [address] Giacomo Queen 10/11/2023 11:15 AM EDT Office [place] [address] Basim Barr MD [facility] [place] [address] 10/18/2023 9:00 AM EDT Office Visit Hematology/Oncology at [address] [phone] Cl Hess MD [facility] [place] [address] Yessi Renee [address] HEMATOLOGY AND ONCOLOGY [place], [place] [address] [phone] 10/18/2023 9:30 AM EDT Infusion Hematology Oncology at [address] [phone] 10/24/2023 9:30 AM EDT Scheduled View Only Radiation Oncology at [address] [phone] Rad Nurse [place] 10/24/2023 10:00 AM EDT Office Visit Radiation Oncology at [address] [phone] Bigg Peters MD [address] [place] [address] DR RADIATION ONCOLOGY [place], [place] [phone] 11/01/2023 9:00 AM EDT Office Visit Hematology/Oncology at [address] [phone] Cl Hess MD [facility] [place] [address] Yessi Renee, [address] HEMATOLOGY AND ONCOLOGY [place], [place] [address] 11/01/2023 9:30 AM EDT Infusion Hematology Oncology at [address] [phone] 12/24/2023 1:00 PM EDT TH Visit (TeleHealth) Radiation Oncology at [address] [phone] Ping Moore PA [facility] DR [place] [address] documented as of this encounter Visit Diagnoses Not on filedocumented in this encounter Care Teams Oil Pipe Inspector Relationship Specialty Start Date End Date Alo Carey DO [address] [place] [address] [place] [address] PCP - General Internal Medicine 08/31/20 07/03/23 documented as of this encounter
--- OUTSIDE RECORDS SUMMARY | 2023-10-06 00:39 | XMS_ITS | Encounter Summary ---
Author Organization [facility] Address [facility] [place] [address] Care Team Providers Care Senior Wind Turbine Technician Name Role Phone Alo Carey Primary Care Provider [phone] Encounter Details Date Type Department Care Team (Latest Contact Info) Description 10/12/2022 Travel Social History Tobacco Use Types Packs/Day [...] AM EDT Tech [place] [address] Giacomo Queen 10/11/2023 11:15 AM EDT Office Visit [place] [address] Basim Barr MD [facility] [place] [address] 10/18/2023 9:00 AM EDT Office Visit Hematology/Oncology at [address] [phone] Cl Hess MD [facility] [place] [address] Yessi Renee [address] HEMATOLOGY AND ONCOLOGY [place], [place] [phone] 10/18/2023 9:30 AM EDT Infusion Hematology Oncology at [address] [phone] 10/24/2023 9:30 AM EDT Scheduled View Only Radiation Oncology at [address] [phone] St [place] Champagne 10/24/2023 10:00 AM EDT Office Visit Radiation Oncology at [address] [phone] Bigg Peters MD [address] [place] [address] DR RADIATION ONCOLOGY [place], [place] [phone] 11/01/2023 9:00 AM EDT Office Visit Hematology/Oncology at [address] [phone] Cl Hess MD [facility] [place] [address] Yessi Renee [address] HEMATOLOGY AND ONCOLOGY [place], [place] [phone] 11/01/2023 9:30 AM EDT Infusion Hematology Oncology at [address] [phone] 12/24/2023 1:00 PM EDT TH Visit (TeleHealth) Radiation Oncology at [address] [phone] Ping Moore PA [facility] DR [place] [address] documented as of this encounter Visit Diagnoses Not on filedocumented in this encounter Care Teams Senior Wind Turbine Technician Relationship Specialty Start Date End Date Alo Carey DO [address] [place] [address] [place] [address] PCP - General Internal Medicine 08/31/20 07/03/23 documented as of this encounter
--- OUTSIDE RECORDS SUMMARY | 2023-10-06 00:39 | XMS_ITS | Encounter Summary ---
[place] [address] Care Team Providers Care Woodworking Shop Laborer Name Role Phone Cherry Alo Lon RUTHERFORD Primary Care Provider [phone] Reason for Referral * Diagnostic Test (Routine) - Authorized Specialty Diagnoses / Procedures Referred By Marques livingston Referred To Contact Diagnoses Symptomatic stenosis of both carotid arteries Procedures Carotid Duplex, Bilateral Basim Barr MD [facility] [place] [address] [facility] V[facility] Lab [address] [place] [phone] Referral ID Status Reason Start Date Expiration Date Visits Requested Visits Authorized [id number] Authorized Specialty Service Requested 10/23/2022 10/23/2023 1 1 Encounter Details Date Type Department Care Team (Late st Contact Info) Description 10/12/2022 10:45 AM EDT Office Visit [place] [address] Basim Barr MD [facility] [place] [address] Symptomatic stenosis of both carotid arteries Social History Tobacco Use Types Packs/Day Years [...] Sign Reading Time Taken Comments Blood Pressure 128/57 10/12/2022 10:40 AM EDT Pulse 63 10/12/2022 10:22 AM EDT Temperature - - Respiratory Rate - - Oxygen Saturation 98% 10/12/2022 10:22 AM EDT Inhaled Oxygen Concentration - - Weight - - Height - - Body Mass Index - - documented in this encounter Progress Notes * Basim Barr MD - 10/12/2022 10:45 AM EDT OUTPATIENT VASCULAR SURGERY CONSULTATION Reason for Visit: R ICA stenosis History of Present Illness: This is a 72 y.o. Male with decreased vision R eye and severe R ICA stenosis following CEA. Outside CTA from [facility] reviewed and shows a high grade right ICA stenosis and a moderate right petrous and cavernous stenoses. His last ischemic event was 11/2019 when he had ocular event. 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 He is now status post a right transcervical carotid artery stent that was performed in July 2021. 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 Since his discharge he has done well he remains alert and oriented x3. No focal neurologic symptoms. He does state that he thinks the vision in his right eye has worsened. 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 He has not seen an pediatric intensive physician in some time. reports that he quit smoking about 30 years ago. His smoking use included cigarettes. He has a 120.00 pack-year smoking history. He has never used smokeless tobacco. Patient Active Problem List Diagnosis Code Colorectal [...] type R41.82 s/p Right JIMI (Posterior), Dr. uW - 11/17/21 Z96.649 Bradycardia R00.1 Bladder dysfunction/retention with risk of stretch injury N31.9 Current Outpatient Medications: glimepiride (Amaryl) 2 mg tablet, Take 2 mg by mouth daily., Disp: , Rfl: tamsulosin (Flomax) 0.4 mg capsule, TAKE 1 CAPSULE BY MOUTH EVERY NIGHT, Disp: 30 capsule, Rfl: PRN omega 9-ogw-wrn-fish oil 250-350-1,000 mg Capsule, Take 1,000 mg by mouth., Disp: , Rfl: amLODIPine (Norvasc) 10 mg Tablet, Take 0.5 tablets by mouth daily. Amlodipine (Hold if SBP<120), Disp: , Rfl: carvediloL (Coreg) 25 mg Tablet, Take 1 tablet by mouth 2 times daily (with meals). Carvedilol (hold for SBP <110, Hr <60), Disp: , Rfl: lisinopriL (Zestril) 40 mg Tablet, Take 1 tablet by mouth daily. Lisinopril (hold for SBP <130),Disp: , Rfl: timoloL (Timoptic) 0.5 % Drops, , Disp: , Rfl: erythromycin (Romycin) 5 mg/gram (0.5 %) Ointment, Place 1 Tube into the left eye once a week., Disp: , Rfl: folic acid (Folvite) 1 mg Tablet, Take 1 tablet by mouth daily., Disp: 90 tablet, Rfl: 3 isosorbide mononitrate CR (Imdur) 30 mg Tablet Sustained Release 24 hr, Take 1 tablet by mouth nightly., Disp: 30 tablet, Rfl: 12 atorvastatin (Lipitor) 80 mg Tablet, Take 1 tablet by mouth every evening., Disp: 90 tablet, Rfl: 3 metFORMIN (FORTAMET) 500 mg Tablet Extended Rel 24 hr, Take 1,000 mg by mouth 2 times daily (with meals)., Disp: , Rfl: aspirin EC 81 mg Tablet, Delayed Release (E.C.), Take 81 mg by mouth daily., Disp: , Rfl: oxyCODONE (Roxicodone) 5 mg Tablet, Take 0.5-2 tablets by mouth every 4 hours as needed for Pain. (Patient not taking: Reported on 07/31/2022), Disp: 20 tablet, Rfl: 0 Allergies Allergen Reactions Cyclobenzaprine Other (See Comments) Extreme moodiness Other reaction(s): Other (See Comments) Extreme moodiness Other [Unclassified Drug] Other (See Comments) Had reaction to a dye used during vascular procedure at [facility] in [place]: shaking Has tolerated MRI and CT contrast. Review of Systems: Constitutional (weight change, fever) - Denies Neuro (dizziness, seizures, numbness, tingling) - Denies Eyes (vision) - Denies Ears, nose, throat (hearing) - Denies Cardiovascular (CP) - Denies Respiratory (SOB) - Denies GI (abd pain, nausea, emesis, blood in stool) - Denies (hematuria, dysuria, frequency) - Denies Muscoloskeletal (extremity pain, weakness) - Denies Skin (ulcers, rashes) - Denies Functional Status/Social Hx: Family Hx: Negative for Thrombosis, Bleeding Disorders Physical Exam: BP 128/57 Pulse 63 SpO2 98% General - NAD, appears stated age Neuro - Alert and Oriented, Motor Sensory grossly intact Skin - No prominent markings or lesions Ear, Nose, Throat - No masses, No lesions Cardiac - RRR, no murmurs Lungs - Clear Musculoskeletal- full ROM upper and lower extremities Psych- alert oriented X3 , Extremities - Warm, pink, no edema, brisk capillary refill Vascular Exam: R L Carotid 2/2 bruit () 2/2 bruit () Radial 2/2 2/2 Femoral 2/2 2/2 Popliteal DP PT Labs: No results found for this or any previous visit (from the past 72 hour(s)). Assessment and Plan: The right carotid stent is widely patent, on the left he has minimal stenosis. I discussed with himprior to the procedure that did not expect any change in his vision following the carotid stent procedure. We will have him return to the office in approximately 12 months with a repeat carotid duplex study. He will continue to take his aspirin and statin. . documented in this encounter Plan of Treatment Upcoming Encounters Date Type Department Care Team (Late st Contact Info) Description 10/11/2023 10:00 AM EDT Tech [place] [address] Giacomo Queen 10/11/2023 11:15 AM EDT Office Visit [place] [address] Basim Barr MD [facility] [place] [address] 10/18/2023 9:00 AM EDT Office Visit Hematology/Oncology at [address] [phone] Cl Hess MD [facility] [place] [address] Yessi Renee APRN [address] [place] [address] DR HEMATOLOGY AND ONCOLOGY [place], [place] [phone] 10/18/2023 9:30 AM EDT Infusion Hematology Oncology at [address] [phone] 10/24/2023 9:30 AM EDT Scheduled View Only Radiation Oncology at [address] [phone] St La N[place] Champagne 10/24/2023 10:00 AM EDT Office Visit Radiation Oncology at [address] [phone] Bigg Peters MD [address] [place] [address] DR RADIATION ONCOLOGY [place], [place] [address] 11/01/2023 9:00 AM EDT Office Visit Hematology/Oncology at [address] [phone] Cl Hess MD [facility] [place] [address] Yessi Renee APRN [address] [place] [address] DR HEMATOLOGY AND ONCOLOGY [place], [place] [address] 11/01/2023 9:30 AM EDT Infusion Hematology Oncology at [address] [phone] 12/24/2023 1:00 PM EDT TH Visit (TeleHealth) Radiation Oncology at [address] [phone] Ping Moore PA [facility] DR [place] [address] documented as of this encounter Visit Diagnoses Diagnosis Symptomatic stenosis of both carotid arteries documented in this encounter Care Teams Woodworking Shop Laborer Relationship Specialty Start Date End Date Alo Carey DO [address] [place] [address] [place] [address] PCP - General Internal Medicine 08/31/20 07/03/23 documented as of this encounter
--- OUTSIDE RECORDS SUMMARY | 2023-10-06 00:39 | XMS_ITS | Encounter Summary ---
Author Organization [facility] [place] [address] Care Team Providers Care Processing Lead Name Role Phone Alo Carey DO Primary Care Provider [phone] Encounter Details Date Type Department Care Team (Late st Contact Info) Description 04/18/2023 Ancillary Procedure [place] [phone] Cl Hess MD [facility] [place] [address] Social History Tobacco Use Types Packs/Day Years [...] AM EDT Tech [place] [address] Giacomo Queen 10/11/2023 11:15 AM EDT Office Visit [place] [address] Basim Barr MD [facility] [place] [address] 10/18/2023 9:00 AM EDT Office Visit Hematology/Oncology at [address] [phone] Cl Hess MD [facility] [address] Yessi Renee [address] HEMATOLOGY AND ONCOLOGY [place], [place] [address] [phone] 10/18/2023 9:30 AM EDT Infusion Hematology Oncology at [address] [phone] 10/24/2023 9:30 AM EDT Scheduled View Only Radiation Oncology at [address] [phone] Rad Nurse, [place] 10/24/2023 10:00 AM EDT Office Visit Radiation Oncology at [address] [phone] Bigg Peters MD [address] [place] [address] DR RADIATION ONCOLOGY [place], [place] [address] 11/01/2023 9:00 AM EDT Office Visit Hematology/Oncology at [address] [phone] Cl Hess MD [facility] [address] Yessi Renee [address] HEMATOLOGY AND ONCOLOGY [place], [place] [address] 11/01/2023 9:30 AM EDT Infusion Hematology Oncology at [address] [phone] 12/24/2023 1:00 PM EDT TH Visit (TeleHealth) Radiation Oncology at [address] [phone] Ping Moore PA [facility] DR HEMATOLOGY [place] [address] documented as of this encounter Procedures Procedure Name Priority Date/Time Associated Diagnosis Comments FILM LIBRARY STORAGE ONLY CT ABDOMEN AND PELVIS Routine 04/18/2023 12:00 AM EST documented in this encounter Results * Film Library- Storage Only CT Abdomen & Pelvis (04/18/2023 12:00 AM EST) Narrative [facility] - 06/17/2023 12:12 PM EDT This exam is auto-finalizing. It's purpose is for storage only. Cl Hess MD [facility] FILM LIBRARY ORD ERABLES [place], [place] documented in this encounter Visit Diagnoses Not on filedocumented in this encounter Care Teams Processing Lead Relationship Specialty Start Date End Date Alo Carey DO [address] [place] [address] [place] [address] PCP - General Internal Medicine 08/31/20 07/03/23 documented as of this encounter
--- OUTSIDE RECORDS SUMMARY | 2023-10-06 00:39 | XMS_ITS | Encounter Summary ---
[place] [address] Care Team Providers Care Statistical Financial Analyst Name Role Phone Alo Carey DO Primary Care Provider Reason for Visit * Reason Comments Medication Refill Encounter Details Date Type Department Care Team (Late Contact Info) Description 05/30/2022 Refill Radiation Oncology at [address] [phone] Bigg Peters MD [address] [place] [address] RAD[place] [address] Malignant neoplasm of prostate Social [...] AM EDT Tech [place] [phone] Giacomo Queen 10/11/2023 11:15 AM EDT Office Visit [place] [phone] Basim Barr MD [facility] [place] [address] 10/18/2023 9:00 AM EDT Office Visit Hematology/Oncology at [address] [phone] Cl Hess MD [facility] [place] [address] Yessi Renee, [address] HEMATOLOGY AND ONCOLOGY [place], [place] [address] [phone] 10/18/2023 9:30 AM EDT Infusion Hematology Oncology at [address] [phone] 10/24/2023 9:30 AM EDT Scheduled View Only Radiation Oncology at [address] [phone] Rad Nurse, [facility] 10/24/2023 10:00 AM EDT Office Visit Radiation Oncology at [address] [phone] Bigg Peters MD [address] [place] [address] DR RADIATION ONCOLOGY [place], [place] [phone] 11/01/2023 9:00 AM EDT Office Visit Hematology/Oncology at [address] [phone] Cl Hess MD [facility] [place] [address] Yessi Renee [address] HEMATOLOGY AND ONCOLOGY [place], [place] [address] [phone] 11/01/2023 9:30 AM EDT Infusion Hematology Oncology at [address] [phone] 12/24/2023 1:00 PM EDT TH Visit (TeleHealth) Radiation Oncology at [address] [phone] Ping Moore PA [facility] DR HEMATOLOGY [place] [address] documented as of this encounter Visit Diagnoses Diagnosis Malignant neoplasm of prostate documented in this encounter Care Teams Statistical Financial Analyst Relationship Specialty Start Date End Date Alo Carey DO [address] [place] [address] [place] [phone] PCP - General Internal Medicine 08/31/20 07/03/23 documented as of this encounter
--- OUTSIDE RECORDS SUMMARY | 2023-10-06 00:39 | XMS_ITS | Encounter Summary ---
Author Organization [facility] [place] [address] Care Team Providers Care Tile Installer Name Role Phone Alo Carey Primary Care Provider [phone] Reason for Visit * Reason Comments Medication Refill Encounter Details Date Type Department Care Team (Late Contact Info) Description 05/30/2022 Refill Radiation Oncology at [address] [phone] Bigg Peters MD [address] [place] [address] [place] [address] Malignant neoplasm of prostate Social [...] as of this encounter Miscellaneous Notes * Addendum Note - Bigg Peters MD - 05/30/2022 4:47 PM EDTAddended by: BIGG PETERS on: 05/30/2022 04:47 PM Modules accepted: Orders documented in this encounter Plan of Treatment Upcoming Encounters Date Type Department Care Team (Late Contact Info) Description 10/11/2023 10:00 AM EDT Tech [place] [address] Giacomo Queen 10/11/2023 11:15 AM EDT Office [place] [address] Basim Barr MD [facility] [place] [address] 10/18/2023 9:00 AM EDT Office Visit Hematology/Oncology at [address] [phone] Cl Hess MD [facility] [place] [address] Yessi Renee APRN [address] [place] [address] DR HEMATOLOGY AND ONCOLOGY [place], [place] [phone] 10/18/2023 9:30 AM EDT Infusion Hematology Oncology at [address] [phone] 10/24/2023 9:30 AM EDT Scheduled View Only Radiation Oncology at [address] [phone] St La Nena Champagne 10/24/2023 10:00 AM EDT Office Visit Radiation Oncology at [address] [phone] Bigg Peters MD [address] [place] [address] DR RADIATION ONCOLOGY [place], [place] [phone] 11/01/2023 9:00 AM EDT Office Visit Hematology/Oncology at [address] [phone] Cl Hess MD [facility] [place] [address] Yessi Renee APRN [address] [place] [address] DR HEMATOLOGY AND ONCOLOGY [place], [place] [phone] 11/01/2023 9:30 AM EDT Infusion Hematology Oncology at [address] [phone] 12/24/2023 1:00 PM EDT TH Visit (TeleHealth) Radiation Oncology at [address] [phone] Ping Moore PA [facility] DR [place] [address] documented as of this encounter Visit Diagnoses Diagnosis Malignant neoplasm of prostate documented in this encounter Care Teams Tile Installer Relationship Specialty Start Date End Date Alo Carey DO [address] [place] [address] [place] [phone] PCP - General Internal Medicine 08/31/20 07/03/23 documented as of this encounter
--- OUTSIDE RECORDS SUMMARY | 2023-10-06 00:39 | XMS_ITS | Encounter Summary ---
[place] [address] Care Team Providers Care Framing Mechanic Name Role Phone Alo Carey DO Primary Care Provider [phone] Encounter Details Date Type Department Care Team (Late st Contact Info) Description 06/29/2022 Orders Only Radiation Oncology at [address] [phone] Bigg Peters MD [address] [place] [address] [place] [address] Carcinoma of prostate Social History Tobacco Use Types Packs/Day Years Used Date Smoking Tobacco: Former Cigarettes 4 30 1 963 - 1993 Smokeless Tobacco: Never Alcohol Use Standard Drinks/Week [...] AM EDT Tech [place] [phone] Giacomo Queen 10/11/2023 11:15 AM EDT Office [place] [address] Basim Barr MD [facility] [place] [address] 10/18/2023 9:00 AM EDT Office Visit Hematology/Oncology at [address] [phone] Cl Hess MD [facility] [address] Yessi Renee [address] HEMATOLOGY AND ONCOLOGY [place], [place] [address] [phone] 10/18/2023 9:30 AM EDT Infusion Hematology Oncology at [address] [phone] 10/24/2023 9:30 AM EDT Scheduled View Only Radiation Oncology at [address] [phone] Rad Nurse, [place] 10/24/2023 10:00 AM EDT Office Visit Radiation Oncology at [address] [phone] Bigg Peters MD [address] [place] [address] DR RADIATION ONCOLOGY [place], [place] [address] 11/01/2023 9:00 AM EDT Office Visit Hematology/Oncology at [address] [phone] Cl Hess MD [facility] [place] [address] Yessi Renee [address] HEMATOLOGY AND ONCOLOGY [place], [place] [address] 11/01/2023 9:30 AM EDT Infusion Hematology Oncology at [address] [phone] 12/24/2023 1:00 PM EDT TH Visit (TeleHealth) Radiation Oncology at [address] [phone] Ping Moore PA [facility] DR HEMATOLOGY [place] [address] documented as of this encounter Visit Diagnoses Diagnosis Carcinoma of prostate Malignant neoplasm of prostate documented in this encounter Care Teams Framing Mechanic Relationship Specialty Start Date End Date Alo Carey DO [address] [place] [address] [place] [address] PCP - General Internal Medicine 08/31/20 07/03/23 documented as of this encounter
--- OUTSIDE RECORDS SUMMARY | 2023-10-06 00:39 | XMS_ITS | Encounter Summary ---
Author Organization [facility] [place] [address] Care Team Providers Care Car Worker Name Role Phone Alo Carey DO Primary Care Provider [phone] Encounter Details Date Type Department Care Team (Late st Contact Info) Description 05/27/2023 Ancillary Procedure [place] [phone] Cl Hess MD [facility] [place] [address] Social History Tobacco Use Types Packs/Day Years [...] AM EDT Tech [place] [address] Giacomo Queen 10/11/2023 11:15 AM EDT Office [place] [address] Basim Barr MD [facility] [place] [address] 10/18/2023 9:00 AM EDT Office Visit Hematology/Oncology at [address] [phone] Cl Hess MD [facility] [place] [address] Yessi Renee [address] HEMATOLOGY AND [place]COLOGY [place], [place] [address] [phone] 10/18/2023 9:30 AM EDT Infusion Hematology Oncology at [address] [phone] 10/24/2023 9:30 AM EDT Scheduled View Only Radiation Oncology at [address] [phone] Rad Nurse, [place] 10/24/2023 10:00 AM EDT Office Visit Radiation Oncology at [address] [phone] 77 Bigg Peters MD [address] [place] [address] DR RADIATION [place]COLOGY [place], [place] [address] 11/01/2023 9:00 AM EDT Office Visit Hematology/Oncology at [address] [phone] Cl Hess MD [facility] [place] [address] Yessi Renee [address] HEMATOLOGY AND ONCOLOGY [place], [place] [address] 11/01/2023 9:30 AM EDT Infusion Hematology Oncology at [address] [phone] 47 12/24/2023 1:00 PM EDT TH Visit (TeleHealth) Radiation Oncology at [address] [phone] Ping Moroe PA [facility] DR HEMATOLOGY [place] [address] documented as of this encounter Procedures Procedure Name Priority Date/Time Associated Diagnosis Comments FILM LIBRARY STORAGE ONLY NM PET/CT Routine 05/27/2023 12:00 AM EDT documented in this encounter Results * Film Library- Storage Only NM Pet / CT (05/27/2023 12:00 AM EDT) Narrative [facility] - 06/17/2023 8:57 AM EDT This exam is auto-finalizing. It's purpose is for storage only. Cl Hess MD IMG FILM LIBRARY ORD ERABLES Performing Organization Address City/State/[facility] Co de Phone Number [place], [place] documented in this encounter Visit Diagnoses Not on filedocumented in this encounter Care Teams Car Worker Relationship Specialty Start Date End Date Alo Carey DO [address] [place] [address] [place] [address] PCP - General Internal Medicine 08/31/20 07/03/23 documented as of this encounter
--- OUTSIDE RECORDS SUMMARY | 2023-10-06 00:39 | XMS_ITS | Encounter Summary ---
[place] [address] Care Team Providers Care Senior Marketing Associate Name Role Phone YungAlo santiago Primary Care Provider [phone] Reason for Referral * Home Health Care (Routine) - Closed Specialty Diagnoses / Procedures Referred By Marques livingston Referred To Contact Diagnoses Status post total replacement of right hip Ismael Wu MD [facility] [place] [address] a & [facility] [address] [place] [address] Referral ID Status Reason Start Date Expiration Date V isits Requested Visits Authorized [id number] Closed Consult, Test & Treat 11/18/2021 05/17/2022 999 999 Reason for Visit * Auth/Cert Specialty Diagnoses / Procedures Referred By Marques livingston Referred To Contact Diagnoses S/P total hip arthroplasty right hip OA Procedures PRO TOTAL HIP ARTHROPLASTY TOTAL HIP ARTHROPLASTY - POSTERIOR (WRVU 20.72) MODIFIER ACTIS HIP STEM DEPUY MODIFIER PINNACLE ACETABULUM Ismael Stewart MD [facility] [place] [address] [facility] Referral ID Status Reason Start Date Expiration Date Visits Re quested Visits Authorized [id number] 1 1 Encounter Details Date Type Department Care Team (Latest Contact Info) Description 11/17/2021 11:32 AM EDT - 11/18/2021 3:50 PM EDT Hospital Encounter [address] [place] [address] Ismael Wu MD [facility] [place] [address] Status post total replacement of right hip Discharge Disposition: Home Social History Tobacco Use [...] Sign Reading Time Taken Comments Blood Pressure 109/54 11/18/2021 2:16 PM EDT Pulse 62 11/18/2021 2:16 PM EDT Temperature 36.4 ??C (97.5 ??F) 11/18/2021 11:56 AM E DT Respiratory Rate 16 11/18/2021 11:56 AM EDT Oxygen Saturation 90% 11/18/2021 11:56 AM EDT Inhaled Oxygen Concentration - - Weight - - Height - - Body Mass Index - - documented in this encounter Discharge Summaries * Branden Ramachandran PA - 11/18/2021 3:04 PM EDT Discharge Summary Patient Name: Wero Sadler Patient Age: 71 y.o. Language: Panamanian Race: White Ethnicity: Not nor Admit date: 11/17/2021 Discharge date and time: 11/18/2021 Attending Physician: Ismael Wu MD Discharge Physician: Ismael Wu MD Follow-up Recommendations for Providers: See discharge instructions for additional details. Future Appointments Date Time Provider Department Center 12/22/2021 9:15 AM [facility] DX ROOM 3 MH Xray [facility] Rad 12/22/2021 10:00 AM Ismael Wu MD [facility] 3C [facility] Inpatient Provider Contact Information: Ismael Wu MD Orthopedics: [phone] After hours and weekends, call [facility] Station Usher, , and have the Orthopedic resident paged. Discharge Diagnoses (Hospital Problems) and Secondary Diagnoses (Chronic Problems): Active Hospital Problems Diagnosis ??? Bradycardia ??? Bladder dysfunction/retention with risk of stretch injury ??? s/p Right JIMI (Posterior), Dr. Wu - 11/17/21 ??? Hypertension -Labile blood pressurses Resolved Hospital Problems No resolved problems to display. Active Non-Hospital Problems Diagnosis ??? Altered mental status, unspecified altered mental status type ??? Stenosis of carotid artery, unspecified laterality ??? Hx of CABG ??? 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 Anterior ischemic optic neuropathy ??? Carcinoma of prostate ??? Dysphagia ??? Hearing loss ??? History of cerebrovascular accident ??? History of claudication ??? BPH (benign prostatic hyperplasia) ??? Obstructive sleep apnea syndrome ??? Malignant neoplasm of prostate ??? Benign prostatic hyperplasia ??? Postoperative urinary retention ??? Primary osteoarthritis of left hip ??? s/p L JIMI, posterior, Dr. Wu, 10/10/20 ??? ASCVD (arteriosclerotic cardiovascular disease) ??? History of carotid endarterectomy ??? Colorectal cancer ??? Diabetes mellitus ??? Hypercholesterolemia Operations/Major Procedures: 11/17/2021 Surgeon(s) and Role: * Ismael Wu MD - Primary * Slim Smallwood MD - Resident Procedure(s): TOTAL HIP ARTHROPLASTY - POSTERIOR (WRVU 20.72) MODIFIER ACTIS HIP STEM DEPUY MODIFIER PINNACLE ACETABULUM DEPUY History of Presentation: Wero Sadler is a 71 y.o. male with a past medical history as noted below and with a long history of right hip pain and degenerative joint disease secondary to degenerative arthritis. After considering the patient's condition and the impact of their hip on the patient's quality of life and failure of consevative treatment, total hip replacement was offered as a reasonable option. ?? Prior to the surgery I discussed the nature of the total hip replacement surgery including alternatives to surgery and the purpose of, and indications for proceeding with surgery. I discussed that this is an elective operation and that the patient should carefully weigh their options before proceeding with surgery. I discussed that this surgery is a shared decision between the patient and the surgeon. ?? Risks and benefits and alternatives of the procedure have been explained to the patient and their family. Anesthesia complications and risks include but are not limited to stroke, heart attack, and . The surgical risks include but are not limited to infection, instability/dislocation, bleeding, nerve and blood vessel injury, deep vein thrombosis, pulmonary embolism, stiffness, pain, scar, need for reoperation, leg length discrepancy, thigh numbness, weakness, and mechanical failure of the implant including loosening, metal complications, metal allergy, wear or breakage. I discussed the expected recovery from surgery and the importance of compliance with all our pre and post-operative re commendations in order to maximize the recovery. The patient understands the risks of loss of life,loss of limb and, loss of function and wishes to proceed. A signed and witnessed consent was obtained and placed in the chart. Hospital Course: The patient was admitted via Same Day Surgery for the above operation. DVT prophylaxis was: Rivaroxaban. Patient began rehab on POD#1 for weight bearing as tolerated of right leg and reinforcement ofthe JIMI Precautions. Witt was removed on POD#1 and patient was having post-operative acute urinaryretention; he was straight catheterized and then a Witt urinary catheter was placed; the patient was counseled regarding follow-up with his urologist on Saturday after discharge for scheduling void trial for 5-7 days from surgery. Wound inspected POD#1 and found to be benign. Patient did not have a bowel movement prior to discharge but was passing flatus and was taking a diet without difficulty. By POD#1 the patient was medically stable and was cleared for safe discharge to home per PT. Bladder Catheter (Witt Catheter): The patient was having voiding issues/urinary retention following surgery. After attempts to resolve this, a Witt Urinary Catheter was placed. The patient receivedley Catheter training prior to discharge. The patient will call his urologist on Saturday after discharge to scheduled for a void trial. The patient was also counseled regarding what to do should thecatheter show blood in the urine; either contacting the clinic, the patient's PCP, or going to the emergency room. Of Note: The patient was given Lisinopril with a SBP of ~100 on POD#1 which resulted in him having hypotension. This resolved prior to discharge and the patient was able to ambulate around the colón with the nursing staff several times without issue. BSBP closer to ~110 prior to discharge. Vital Signs at Discharge: Weight: Wt Readings from Last 1 Encounters: 09/21/21 106.3 kg (234 lb 6.4 oz) Height: Ht Readings from Last 1 Encounters: 08/15/21 180.3 cm (5' 11) HC: HC Readings from Last 1 Encounters: No data found for HC BMI: There is no height or weight on file to calculate BMI. Last value Range last 24 hrs Temperature Temp: 36.4 ??C (97.5 ??F) Temp: [36.3 ??C (97.3 ??F)-36.6 ??C (97.8 ??F)] Heart Rate Heart Rate: 62 Heart Rate: [44-62] Blood Pressure BP: 109/54 BP: (74-179)/(35-84) Respiratory Rate Resp: 16 Resp: [12-16] SpO2 SpO2: 90 % SpO2: [90 %-100 %] Art BP BP (Arterial Line): 180/66 BP (Arterial Line): (163-180)/(58-66) Functional and Cognitive Status: Patient mobilizing with use of walker, cognitively intact at baseline mental status at time of discharge. Important Lab Data: Last 3 wbc, hgb, hct plt Recent Labs 11/18/21 0320 11/17/21 1300 07/21/21 0030 WBC 9.5 3.4* 6.9 HGB 11.1* 11.8* 10.3* HCT 33.0* 34.7* 30.8* PLATELET 178 159 229 Last 3 Lytes Recent Labs 11/18/21 0320 07/21/21 0030 07/20/21 0015 NA 139 136 137 K 4.0 3.7 3.9 CL 104 103 104 CO2 26 21* 20* BUN 15 20 16 CREATININE 0.65* 0.65* 0.59* Studies: Xray Pelvis showing right hip arthroplasty present; awaiting final read. Pending Studies and Lab Data at Discharge: * No orders in the log * Transfusions: No Discharge Conditions/Prognosis: Stable, awake, and alert. Mobilizing as noted above, pain controlled on oral medications. Discharge to: Home with VNA services Updated Allergies/ADRs: Allergies Allergen Reactions ??? Cyclobenzaprine Other (See Comments) Extreme moodiness ??? Other [Unclassified Drug] Other (See Comments) Had reaction to a dye used during vascular procedure at [facility] in [place]: shaking Has tolerated MRI and CT contrast. Immunizations Given this Hospitalization: Immunization History Administered Date(s) Administered ??? Influenza PF, Split (High Dose) 11/21/2020 ??? Moderna Covid-19 (Geological Technical Officer 100mcg) Vaccine 05/20/2020, 06/21/2020, 01/01/2021 ??? Td, adult 12/02/2018 Discharge Medications: Your Medications New Medications Dose Details acetaminophen 500 mg Tab Commonly known as: Tylenol Take 2 tablets by mouth every 8 hours for 10 days. 1,000 mg Refills: 0 oxyCODONE 5 mg Tab Commonly known as: Roxicodone Take 0.5-2 tablets by mouth every 4 hours as needed for Pain. 2.5-10 mg Quantity: 20 tablet Refills: 0 polyethylene glycoL 17 gram Pwpk Commonly known as: Miralax Take 17 g by mouth daily as needed (For constipation) for up to 30 days. 17 g Refills: 0 rivaroxaban 10 mg Tab Commonly known as: Xarelto Take 1 tablet by mouth daily for 30 days. 10 mg Quantity: 30 tablet Refills: 0 senna 8.6 mg Tab Commonly known as: Senna Take 1 tablet by mouth 2 times daily as needed for Constipation for up to 30 days. 1 tablet Refills: 0 Continued medications with new dosing Dose Details amLODIPine 10 mg Tab Commonly known as: Norvasc Take 0.5 tablets by mouth daily. Amlodipine (Hold if SBP<120) What changed: additional instructions 5 mg Refills: 0 carvediloL 25 mg Tab Commonly known as: Coreg Take 1 tablet by mouth 2 times daily (with meals). Carvedilol (hold for SBP <110, Hr <60) What changed: additional instructions 25 mg Refills: 0 lisinopriL 40 mg Tab Commonly known as: Zestril Take 1 tablet by mouth daily. Lisinopril (hold for SBP <130) What changed: additional instructions 40 mg Refills: 0 Continued medications, unchanged Dose Details aspirin EC 81 mg Tbec Take 81 mg by mouth daily. 81 mg Refills: 0 atorvastatin 80 mg Tab Commonly known as: Lipitor Take 1 tablet by mouth every evening. 80 mg Quantity: 90 tablet Refills: 3 erythromycin 5 mg/gram (0.5 %) Oint Commonly known as: Romycin Refills: 0 folic acid 1 mg Tab Commonly known as: Folvite Take 1 tablet by mouth daily. 1,000 mcg Quantity: 90 tablet Refills: 3 glimepiride 1 mg Tab Commonly known as: Amaryl Take 1 mg by mouth daily. 1 mg Refills: 0 isosorbide mononitrate CR 30 mg Tablet sr Commonly known as: Imdur Take 1 tablet by mouth nightly. 30 mg Quantity: 30 tablet Refills: 12 metFORMIN 500 mg Tr24 Commonly known as: FORTAMET Take 1,000 mg by mouth 2 times daily (with meals). 1,000 mg Refills: 0 tamsulosin 0.4 mg Cap Commonly known as: Flomax Take 1 capsule by mouth nightly. 0.4 mg Quantity: 30 tablet Refills: PRN timoloL 0.5 % Drop Commonly known as: Timoptic Refills: 0 STOPPED Medications fish oil-omega-3 fatty acids 1,000 mg Cap mupirocin 2 % Oint Commonly known as: Bactroban naproxen sodium 220 mg Tab Commonly known as: ANAPROX Smoking Status at Discharge: Social History Tobacco Use Smoking Status Former Smoker ??? Packs/day: 4.00 ??? Years: 30.00 ??? Pack years: 120.00 ??? Types: Cigarettes ??? Quit date: 1992 ??? Years since quittin.7 Smokeless Tobacco Never Used Instructions Given to Patient at Discharge: Patient Instructions Activity: 1. Your weight-bearing status is - weight bearing as tolerated of right leg. 2. Remember to use a walker or crutches at all times for balance and protection. Your physical therapist may progress you to using a cane when appropriate. 3. Remember your hip precautions: Enhanced: DO NOT flex the operative leg more than 90 degrees. DO NOT cross your legs. USE a raised seating / toilet seat. Use a pillow or the Abduction pillow between your legs to remind you not to cross your legs. Anti-coagulation: Rivaroxaban - You have been discharged on rivaroxaban (Xarelto) 10mg daily for 30days from surgery. After your dose on 12/18 stop the rivaroxaban. Diet: Resume your usual diet but increase your intake of fluids and fiber while you are on narcoticpain meds to prevent constipation. Driving: None until you are cleared to do so by your Orthopedic surgeon. You should not drive whileyou are on narcotic pain meds as they can affect your judgment and reaction time. Call your surgeonwith any questions/concerns. Voiding: Bladder Catheter (Witt Catheter): You are being sent home with a witt catheter. Do not remove this catheter. Please empty this as instructed during Witt Catheter training prior to discharge. You will need to call your urologist on 11/20/21 to schedule a void trial which should be done between 11/21 ad 11/24. If you have any questions or concerns regarding this plan, please contact our toy painter at [phone]. Your catheter will stay in until your follow-up visit for void trial as scheduled. You will likely have some blood in your urine. However, if you are passing large amounts of blood clots, bright red blood or if you have concerns that your catheter as stopped draining urine, please call your [facility] (VNA), the clinic where you will have your void trial, or go to the emergency room. Keep the catheter in place and attached to a gravity drainage bag (large or leg bag). Medications: 1. The pain medication you are on can cause constipation so increase your intake of fluids and fiber while you are on them. The stool softener, Pericolace, that has been prescribed can also be taken to facilitate a bowel movement. You can also take an kvrs-lhq-bddlwny medication, Miralax if needed to combat constipation. 2. If you need a renewal on your narcotic pain medication, you need to give the Orthopedic clinic enough time to process your request. This can take up to three days, so plan accordingly. 3. Continue acetaminophen (Tylenol) 1,000mg every 8 hours around the clock until 11/27 (for ten daysafter your surgery). This can be effective in controlling pain along with your other medications. After that you can take Tylenol as needed per package insert. Do not take more than 3,000mg of acetaminophen in a 24 hour period. 4. You have been discharged on a short acting narcotic, Oxycodone. You will be on this medication for a limited period of time only. Take the smallest dose possible to control your pain. As your painimproves take smaller, less frequent doses. You may break the tablet to achieve a smaller dose. Hold parameters for blood pressure medications: 1. Lisinopril (hold for SBP <130) 2. Amlodipine (Hold if SBP<120) 3. Carvedilol (hold for SBP <110, Hr <60) Shower (internal sutures): 1. You can shower but remember your activity limitations and always have a chair available for balance and protection. DO NOT submerge the dressing/incision. 2. (Mepilex) Do not let water run over the operative dressing. If it becomes wet lightly pat the dressing dry. DO NOT submerge the incision. When this operative dressing is removed you can let water gently run over the incision. Wound (Mepilex): 1. You do NOT have any external jay or sutures in place. Your sutures are internal and will be absorbed over time. 2. You have a Mepilex dressing in place. Do not lift the edge of the Mepilex dressing to inspect the incision, it will not re-adhere. Remove your operative dressing 7 days after your surgery (11/24). When it is removed you can leave the incision open to air or cover it with a light dressing. 3. If you have lots of drainage when you get home (and it is before 11/24), remove the operative dressing and replace it with dry sterile gauze. Continue with daily dressing changes (and as needed) until the drainage stops, then remove the dressing and leave the incision open to air or lightly covered. Misc: Remember that ICE and elevation are very important after surgery to help decrease swelling and control pain. Use ICE for 20-30 minutes at a time and keep your leg elevated as much as possible. Call your doctor ([phone]) if you develop: 1. Fever greater than 100.5 2. Severe nausea or vomiting 3. Increasing pain that is not controlled by pain medications 4. Increasing redness, swelling, or drainage from incisions 5. Change in sensation FOLLOW-UP APPOINTMENTS: 1. You will have follow-up appointments at [facility] as indicated below in Future Appointment and Orders. 2. You will need to have x-rays prior to your follow-up appointment on 12/22. Please come to Radiology, desk 3T, 1 hour BEFORE that appointment for these x-rays. Future Appointments Date Time Provider Department Center 12/22/2021 9:15 AM [facility] DX ROOM 3 Xray [facility] Rad 12/22/2021 10:00 AM Ismael Wu MD [facility] [address] [place] [address] If you have questions or concerns: Saturday through Saturday, 8 AM - 5 PM, please call Dr. sImael Wu MD's office at . If it is after 5 PM, the weekend, or holidays, please call and ask to speak with theOrthopedic resident on-call. General Instructions None Future Appointments and Orders Future Appointments and Orders Future Appointments Provider Department Dept Phone 12/22/2021 9:15 AM [facility] DX ROOM 3 XRay at [facility] Arrive at: [facility] [phone] Please go to [facility] ([place] Location). 12/22/2021 10:00 AM Ismael Wu MD Orthopaedics at [facility] Arrive at: [facility] [phone] Future Orders Complete By Expires Referral to Home Health [REF34 Custom] As directed Process Instructions: If no progress note charted, please enter Clinical details in comments. Scheduling Instructions: Comments: Please evaluate Wero Sadler for admission [place] [address] (home) Date of : 1950 Inpatient DOCUMENTATION FOR VNA SERVICES (INCLUDING THOSE PATIENTS WITH MEDICARE COVERAGE REQUIRING HOME VNA SERVICES AND/OR HOSPICE SERVICES) Wero Sadler Discharge to own home: [address] [place] [address] (home) Telephone Information: Water Regulator And Valve Repairer's Name: Wero In discussion with the attending physician, it is certified that this patient is under their care and that they, or a nurse practitioner, clinical nurse specialist or physician's residential living assistant who is working directly with them, had a face to face encounter that meets the physician face to face encounter requirements with this patient on 11/18/2021 The encounter with the patient was in whole, or in part, for the following medical condition, whichis the primary reason for home health care services: s/p R JIMI In discussion with the provider, it is certified that, based on their findings, the following services are medically necessary for home health services. To provide the following care/treatments with the clinical findings supporting the need for services as follows: [facility] Health Agency: [facility] [address] [place] [id number] Home care orders for Total Hip Replacements: (RN+PT) RN: 1. Patient on Xarelto 10mg orally daily for 30 days for DVT PPx.? 2. Assess wound, pain management, medication effectiveness and management, elimination, nutrition - Do not lift the edge of the mepilex dressing to observe the incision; this dressing needs to stayin place until 7 days after surgery; at that time, please assist with removal if needed. 3. Resorbable sutures; no need for removal. 4. Witt catheter which will stay in place until urology follow-up during the week after surgery; date to be determined on Saturday when the patient calls his urology clinic to schedule. PT: Continue rehab for balance, endurance, joint mobility, ROM, Strength, JIMI posterior approach with enhanced precautions protocol; DO NOT flex the operative leg more than 90 degrees. DO NOT cross your legs. USE a raised seating / toilet seat. Use a pillow or the Abduction pillow between your legsto remind you not to cross your legs. OT: continue to work with them for activities of daily living FOR MEDICARE ONLY: (please delete this section if not Medicare) In discussion with the attending physician, it is certified that the clinical findings support thatthis patient is homebound ;i.e. absences from home require considerable and taxing effort due to: Restricted mobility due to LE strength and motion due to recent surgery Unsteady Gait, poor balance , requiring assistive devices and/or assistance of another Please note that any additional orders needs or changes will need to be obtained from this patient's PCP: Alo Carey DO [address] [place] [id number] All VNA agencies which cover the area of patient's residence have been reviewed, either verbally alberto writing, and patient/family have chosen the home health care agency as noted for home services. Questions: Disciplines Requested: Nursing Physical Therapy Occupational Therapy Primary Care Provider: Alo Carey DO [phone] Discharge References/Attachments None documented in this encounter Discharge Instructions * Patient Instructions* Branden Ramachandran PA - 11/17/2021 12:01 PM EDT Activity: 1. Your weight-bearing status is - weight bearing as tolerated of right leg. 2. Remember to use a walker or crutches at all times for balance and protection. Your physical therapist may progress you to using a cane when appropriate. 3. Remember your hip precautions: Enhanced: DO NOT flex the operative leg more than 90 degrees. DO NOT cross your legs. USE a raised seating / toilet seat. Use a pillow or the Abduction pillow between your legs to remind you not to cross your legs. Anti-coagulation: Rivaroxaban - You have been discharged on rivaroxaban (Xarelto) 10mg daily for 30days from surgery. After your dose on 12/18 stop the rivaroxaban. Diet: Resume your usual diet but increase your intake of fluids and fiber while you are on narcoticpain meds to prevent constipation. Driving: None until you are cleared to do so by your Orthopedic surgeon. You should not drive whileyou are on narcotic pain meds as they can affect your judgment and reaction time. Call your surgeonwith any questions/concerns. Voiding: Bladder Catheter (Witt Catheter): You are being sent home with a witt catheter. Do not remove this catheter. Please empty this as instructed during Witt Catheter training prior to discharge. You will need to call your urologist on 11/20/21 to schedule a void trial which should be done between 11/21 ad 11/24. If you have any questions or concerns regarding this plan, please contact our toy painter at [phone]. Your catheter will stay in until your follow-up visit for void trial as scheduled. You will likely have some blood in your urine. However, if you are passing large amounts of blood clots, bright red blood or if you have concerns that your catheter as stopped draining urine, please call your [facility] ([facility]), the clinic where you will have your void trial, or go to the emergency room. Keep the catheter in place and attached to a gravity drainage bag (large or leg bag). Medications: 1. The pain medication you are on can cause constipation so increase your intake of fluids and fiber while you are on them. The stool softener, Pericolace, that has been prescribed can also be taken to facilitate a bowel movement. You can also take an nmjg-wai-jurahys medication, Miralax if needed to combat constipation. 2. If you need a renewal on your narcotic pain medication, you need to give the Orthopedic clinic enough time to process your request. This can take up to three days, so plan accordingly. 3. Continue acetaminophen (Tylenol) 1,000mg every 8 hours around the clock until 11/27 (for ten daysafter your surgery). This can be effective in controlling pain along with your other medications. After that you can take Tylenol as needed per package insert. Do not take more than 3,000mg of acetaminophen in a 24 hour period. 4. You have been discharged on a short acting narcotic, Oxycodone. You will be on this medication for a limited period of time only. Take the smallest dose possible to control your pain. As your painimproves take smaller, less frequent doses. You may break the tablet to achieve a smaller dose. Hold parameters for blood pressure medications: Lisinopril (hold for SBP <130) Amlodipine (Hold if SBP<120) Carvedilol (hold for SBP <110, Hr <60) Shower (internal sutures): 1. You can shower but remember your activity limitations and always have a chair available for balance and protection. DO NOT submerge the dressing/incision. 2. (Mepilex) Do not let water run over the operative dressing. If it becomes wet lightly pat the dressing dry. DO NOT submerge the incision. When this operative dressing is removed you can let water gently run over the incision. Wound (Mepilex): 1. You do NOT have any external jay or sutures in place. Your sutures are internal and will be absorbed over time. 2. You have a Mepilex dressing in place. Do not lift the edge of the Mepilex dressing to inspect the incision, it will not re-adhere. Remove your operative dressing 7 days after your surgery (11/24). When it is removed you can leave the incision open to air or cover it with a light dressing. 3. If you have lots of drainage when you get home (and it is before 11/24), remove the operative dressing and replace it with dry sterile gauze. Continue with daily dressing changes (and as needed) until the drainage stops, then remove the dressing and leave the incision open to air or lightly covered. Misc: Remember that ICE and elevation are very important after surgery to help decrease swelling and control pain. Use ICE for 20-30 minutes at a time and keep your leg elevated as much as possible. Call your doctor ([phone]) if you develop: Fever greater than 100.5 Severe nausea or vomiting Increasing pain that is not controlled by pain medications Increasing redness, swelling, or drainage from incisions Change in sensation FOLLOW-UP APPOINTMENTS: 1. You will have follow-up appointments at [facility] as indicated below in Future Appointment and Orders. 2. You will need to have x-rays prior to your follow-up appointment on 12/22. Please come to Radiology, desk 3T, 1 hour BEFORE that appointment for these x-rays. Future Appointments Date Time Provider Department Center 12/22/2021 9:15 AM [facility] DX ROOM 3 Xray [facility] Rad 12/22/2021 10:00 AM Ismael Wu MD [facility] 3C [facility] If you have questions or concerns: Saturday through Saturday, 8 AM - 5 PM, please call Dr. Ismael Wu MD's office at . If it is after 5 PM, the weekend, or holidays, please call and ask to speak with theOrthopedic resident on-call. documented in this encounter Medications at Time of Discharge Medication Sig Dispensed Refills Start Date End Date omega 8-veg-fwz-fish oil 250-350-1,000 mg Capsule Take 1,000 mg [...] (E.C.) Take 81 mg by mouth daily. acetaminophen (Tylenol) 500 mg Tablet Take 2 tablets by mouth every 8 hours for 10 days. 0 11/18/2021 11/28/2021 rivaroxaban (Xarelto) 10 mg Tablet Take 1 tablet by mouth daily for 30 days. 30 tablet 11/18/2021 12/18/2021 senna (Senna) 8.6 mg Tablet Take 1 tablet by mouth 2 times daily as needed for Constipation for up to 30 days. 11/18/2021 12/18/2021 polyethylene glycoL (Miralax) 17 gram Powder in Packet Take 17 g by mouth daily as needed (For constipation) for up to 30 days. 0 11/18/2021 12/18/2021 oxyCODONE (Roxicodone) 5 mg Tablet Take 0.5-2 tablets by mouth every 4 hours as needed for Pain. 20 tablet 11/18/2021 06/07/2023 tamsulosin (Flomax) 0.4 mg Capsule Take 1 capsule by mouth nightly. 30 tablet 08/10/2021 12/22/2021 glimepiride (Amaryl) 1 mg Tablet Take 1 mg by mouth daily. 11/20/2020 10/12/2022 metFORMIN (FORTAMET) 500 mg Tablet Extended Rel 24 hr Take 1,000 mg by mouth 2 times daily (with meals). 06/07/2023 documented as of this encounter Progress Notes * Mariana Villafuerte RN - 11/18/2021 4:14 PM EDT Earlier today, patient had a hypotensive episode (see flowsheet), 500 ml bolus was administered as ordered (see MAR). Patient has since been asymptomatic, walked around the unit a couple of time withstaff. Patient has been discharged and sent home with , all belongings returned and IV removed. Patient went home with witt catheter and education was provided, discharge paperwork was given to patient. * Ping El OT - 11/18/2021 10:45 AM EDT Occupational Therapy Evaluation Patient profile: Wero Sadler is a 71 y.o. male admitted on 11/17/2021 s/p right JIMI on 11/17/2021. Past Medical History: Diagnosis Date ??? 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 can not read. can see shadows. No vision in left eye since child saavedra accident. ??? Cancer prostate, colorectal ??? Claudication ??? Colon adenocarcinoma 2008 recieved chemo in [place] ??? Coronary artery disease ??? Coronary artery dissection ??? CPAP (continuous positive airway pressure) dependence CPAP ??? Diabetes treated with medication ??? Gastroesophageal reflux ??? High blood pressure [...] knee, right knee x 2 ??? PRO EXPLORATION NOT FOLLOWED BY SURG NECK ARTERY Right 07/14/2021 @EXPLORATION NOT FOLLOWED BY SURGICAL REPAIR, ARTERY; NECK (CAROTID OR SUBCLAVIAN) (WRVU 9.19) performed by Basim Barr MD at [facility] MAIN OR ??? PRO LASER VAPORIZATION SURGERY PROSTATE, COMPLETE Midline 02/02/2021 CYSTO, LASER TURP (WRVU 12.15) performed by Cayetano Engle MD at [facility] MAIN OR ??? PRO PLACE TRANSCATHETER STENT, CCA W EMBOLIC PROECT Right 07/14/2021 @TRANSCATH INTRAVASCULAR STENT,CAROTID,PERC,W\EMBOLIC PROT. (WRVU 18) performed by Basim Barr MD at [facility] MAIN OR ??? PRO TOTAL HIP ARTHROPLASTY Left 10/10/2020 TOTAL HIP ARTHROPLASTY - POSTERIOR (WRVU 20.72) performed by Ismael Wu MD at [facility] MAIN OR Social History: Patient lives with his significant other, she works from home and can assist as needed Home Setup: Two story home with set of stairs to bedroom level. Main level with walk in shower withshower chair. Has a cane and FWW that he was not using Baseline ADL/Mobility: At baseline he reports he was independent with all ADLs. Assist with many IADLs due to legal blindness. Precautions/Special Considerations: Fall risk, legally blind, enhanced hip precautions and WBAT RLE Subjective: I can see your outlines well Objective: Seen today for OT evaluation in conjunction with PT. Cognitive Status/Behavior: ?? Behavior / Mood: alert and cooperative ?? Alert and oriented to: person, place, time and situation ?? Follows commands: multi step and 100% of the time ?? Attention: WFL ?? Safety awareness: WFL and fully aware of deficits Vision & Perception: ?? legally blind, can see outlines and able to track therapist to navigate hallway Communication: WFL Range of motion, strength, coordination: Hand dominance: right BUEs appear to be WFL for ROM and strength throughout functional activities LE limitations: WBAT and enhanced hip precautions RLE Sensation: PAtient did not endorse numbness/tingling Activities of Daily Living: Self-feeding: Set up needed Grooming: Anticipate set up needed in unfamiliar environment Dressing: In depth education on techniques to dress lower body while maintaining hip precautions. Significant other can assist at home as needed Bathing: Discussed shower safety with use of shower chair. Recommended not showering until he returns home ([facility]) Toileting: Transfer: Anticipate supervision due to demonstrated sit<>stands Hygiene: Simulated with supervision Functional Mobility: Supine to sit: Supervision Sit to stand: Supervision from EOB to FWW Ambulation: Supervision with FWW 150' and completing stairs with PT Stand to sit: Supervision to bedside chair with patient using arm rests appropriately to have good eccentric control and maintain precautions Sit to supine: Not tested as patient remained upright in bedside chair Balance: Sitting balance: Good Standing balance: Good Vitals: Remained WFL throughout OT eval. Pain: Patient stated 0/10 pain at rest with no complaints of pain during activity Skin: Not formally assessed Education: patient and significant other have been educated on Role of occupational therapy/rehabilitation, Transfers, Assistive device/technique, ADL, Positioning, Safety, Precautions/Protocol, Functional Mobility, Activity pacing/Energy conservation, Balance, Recommendations and Discharge planning and verbalizes understanding. Patient status, treatment, and mobility recommendations discussed with nursing. Patient is in bedside chair with call light in reach and alarm on. Nursing aware of patient's location and status. Assessment: Patient has been seen for occupational therapy evaluation. Wero Sadler presents with the following performance skill deficits and client factors: decreased activity tolerance, decreased flexibility/ROM, decreased sitting/standing balance, visual deficits, precautions/bracing and compromised mobility status. These performance deficits have led to activity limitations and participation restrictions in the following areas of occupation: dressing, bathing, toileting, transfers/mobility, home management, leisure and community mobility. Patient presents 50.11% limited in ADL performance per the [facility]. However, despite the deficits listed above patient demonstrates the ability to complete all ADLs and functional mobility at an overall supervision- Geovanny level. Patient and significant other comfortable discharging home with this level of assist needed. Anticipate that patient will return home with assistance once medically ready. Do not anticipate further OT needs while hospitalized. Patient and significant other requesting home health OT/PT referral- appropriate to ensure maximal safety and independence at home and considering recent fall at home. Equipment needs at discharge: Equipment Needs Upon Discharge (OT): None Anticipated Discharge Disposition (OT): home with home health Other Recommendations: ?? Utilize upright chair position using bed features or transfer to recliner chair as appropriate with assistance as needed, ambulate as tolerated ?? Encourage participation in ADL's by providing set up A on tray table and physical assist only asneeded Other Recommendations: No other consults recommended at this time Plan: OT: Therapy Frequency (OT): evaluation only Total Minutes, Occupational Therapy: 31 (Low Complexity Eval [id number]) 2017 OT Evaluation Code Rationale: ?? Diagnosis & Pertinent Co-Morbidities affecting Plan of Care: see PMHx ?? Occupational Profile & Client History: Brief Expanded Extensive x ?? Assessment of Occupational Performance: 1-3 performance deficits 3-5 performance deficits x 5 + performance deficits ?? Clinical Decision Making: Low Moderate High x Clinical decision making of low complexity using standardized patient assessment instrument and measurable assessment of functional outcome. Ping El OT 11/18/2021 Pager: [phone] Occupational Therapy Rehabilitation Department * Nimisha Mahoney, PT - 11/18/2021 10:45 AM EDT Physical Therapy Evaluation Patient profile: Wero Sadler is a 71 y.o. male admitted on 11/17/[address] Ismael Wu MD for (R)JIMI performed on day of admission. Patient with the following active problems: Active Non-Hospital Problems Diagnosis ??? Altered mental status, unspecified altered mental status type ??? Stenosis of carotid artery, unspecified laterality ??? Hx of CABG ??? 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 Anterior ischemic optic neuropathy ??? Carcinoma of prostate ??? Dysphagia ??? Hearing loss ??? History of cerebrovascular accident ??? History of claudication ??? BPH (benign prostatic hyperplasia) ??? Obstructive sleep apnea syndrome ??? Malignant neoplasm of prostate ??? Benign prostatic hyperplasia ??? Postoperative urinary retention ??? Primary osteoarthritis of left hip ??? s/p L JIMI, posterior, Dr. Wu, 10/10/20 ??? ASCVD (arteriosclerotic cardiovascular disease) ??? History of carotid endarterectomy ??? Colorectal cancer ??? Diabetes mellitus ??? Hypercholesterolemia Past Surgical History: Procedure Laterality Date ??? CARDIAC SURGERY 12/04/2019 triple bypass ??? CAROTID ENDARTERECTOMY Left 12/04/19, Right 6 months prior ??? CAROTID-SUBCLAVIAN BYPASS GRAFT Bilateral 2017, 2018 ??? FEMORAL-TIBIAL BYPASS GRAFT Left 12/2017 ??? JOINT REPLACEMENT Left hip, left knee, right knee x 2 ??? PRO EXPLORATION NOT FOLLOWED BY SURG NECK ARTERY Right 07/14/2021 @EXPLORATION NOT FOLLOWED BY SURGICAL REPAIR, ARTERY; NECK (CAROTID OR SUBCLAVIAN) (WRVU 9.19) performed by Basim Barr MD at [facility] MAIN OR ??? PRO LASER VAPORIZATION SURGERY PROSTATE, COMPLETE Midline 02/02/2021 CYSTO, LASER TURP (WRVU 12.15) performed by Cayetano Engle MD at [facility] MAIN OR ??? PRO PLACE TRANSCATHETER STENT, CCA W EMBOLIC PROECT Right 07/14/2021 @TRANSCATH INTRAVASCULAR STENT,CAROTID,PERC,W\EMBOLIC PROT. (WRVU 18) performed by Basim Barr MD at [facility] MAIN OR ??? PRO TOTAL HIP ARTHROPLASTY Left 10/10/2020 TOTAL HIP ARTHROPLASTY - POSTERIOR (WRVU 20.72) performed by Ismael Wu MD at [facility] MAIN OR Social History: Wero lives with his S.O. Amy in a two story home with 2 CLARIBEL + rails. His bedroom is located on the second living level. Bathroom Set-up: 1st floor with walk-in shower, 2nd floor with clawfoot tub Baseline Mobility: typically independent without use of an assistive device Equipment at home: FWW, straight cane Fall history: + falls hx Precautions/Special Considerations: Code Status: Full Code, High risk for skin breakdown, At risk to fall, WBAT (R)LE - Enhanced hip precautions, Legally Blind Lines: Dhruv, PIV Activity Orders: (none) Diet: Carb controlled diet Mobility and Positioning Recommendations: ?? Pt. to utilize FWW for ambulation and transfers with nursing. ?? Please encourage up to chair for meal times as able. ?? Pt encouraged to ambulate frequently with staff, getting into the bathroom for toileting and walking out in the adan >/= 3 times daily as able Subjective: ???I am familiar with the precautions because I had them last year on the other side.?? Objective: Pt seen for evaluation today. Pain: increased with activity, tolerable throughout Vital Signs: within parameters on RA Mental Status: alert, oriented to person, place, and time Skin: incision covered by dressing Musculoskeletal: ROM: (R) hip limited by enhanced precautions, otherwise WNL (B)LEs Strength: mild functional weakness appreciated (B)LEs with transfers and gait Bed Mobility: Supine to Sit: independent without use of bed rail and with HOB raised Sit to Supine: (not tested - pt left in bedside chair at end of visit) Transfers: Sit to Stand: modified independent using rolling walker Stand to Sit: modified independent using rolling walker ?? Pt demonstrates excellent eccentric control lowering to sit Gait: Distance: 150 feet Device used: rolling walker Level of assist: modified independent Gait mechanics: decreased foot clearance (B), reduced chao and swing-through gait Stairs: ascended / descended 3 stairs using (B) rails with modified independence. Balance: Sitting: good Standing: good Education: patient has been educated on Bed mobility, Transfers, Assistive device/technique, Stairs, Exercise, Positioning, Safety , Precautions/protocol, Gait , Role of therapy, Balance and Discharge planning and verbalizes and demonstrates understanding. Patient status, treatment, and mobility recommendations discussed with nursing. Assessment: Wero Sadler was seen today for physical therapy evaluation. Wero presents this date with pain, reduced functional strength, impaired balance, reduced ROM, reduced functional activity tolerance and altered gait mechanics. He demonstrates excellent understanding of his enhanced JIMI p recautions and his HEP was issued and discussed with pt and his S.O. who will assist him using handout in the setting of pt's baseline visual impairment. He would benefit from home health services and has no DME needs. He reports good pain control with all mobility as above and demonstrates no evidence for imbalance. The pt is cleared at this time from PT perspective for D/C to home setting when medically ready. Recommendations as below. Discharge Recommendations: When medically ready for hospital D/C: Return to home setting with PRN S.O.'s assistance and home health services Consult Recommendations: No other consults recommended at this time. Equipment needs: Patient has all necessary equipment Plan: Therapy Frequency (PT): (P) evaluation only. Patient/family understand and agree with plan asstated above. 2017 PT Evaluation Code Rationale: ?? Diagnosis & Pertinent Co-Morbidities, personal factors, and present illness affecting Plan of Care: (see above); Total # of Factors: 0 1-2 3+ X ?? Examination of body system impairments, functional limitations and behaviors, and/or participation restrictions. (Cardiovascular, Integumentary, Muscular, Nervous, Respiratory and Skeletal) Addressing 1-2 elements Addressing 3 + elements Addressing 4 + elements X ?? Clinical presentation: See assessment above. Stable/Uncomplicated Evolving/Fluctuating Symptoms Unstable/Unpredictable X ?? Clinical decision making of low complexity based on pt's functional performance as outlined in this evaluation. Time IN / OUT: 10:45 - 11:16 Total Minutes, Physical Therapy: (P) 31 Billing Code: (P) low complexity eval Nimisha Mahoney, PT Pager: [phone] Physical Therapy Inpatient Rehabilitation Department * Slim Smallwood MD - 11/18/2021 5:52 AM EDT ORTHOPAEDIC SURGERY INPATIENT PROGRESS NOTE Patient Name: Wero Sadler Age: 71 y.o. Surgery/Issue: Right Total Hip Arthroplasty Attending: Dr. Wu Date of surgery: 11/17/2021 SUBJECTIVE / INTERVAL HISTORY: CLAIREEKAUR Abreu Hgb 11.1. Unable to void in PACU, witt placed by urology, to remain in place for 3 days before void trial. Slept well overnight. Pain well controlled. Denies CP, SOB, nausea, vomiting, numbness/weakness. Looking forward to working with PT today. FOCUSED REVIEW OF SYSTEMS: as above. Active Hospital Problems Diagnosis ??? s/p Right JIMI (Posterior), Dr. Wu - 11/17/21 Resolved Hospital Problems No resolved problems to display. Active Non-Hospital Problems Diagnosis ??? Altered mental status, unspecified altered mental status type ??? Stenosis of carotid artery, unspecified laterality ??? Hx of CABG ??? 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 Anterior ischemic optic neuropathy ??? Carcinoma of prostate ??? Dysphagia ??? Hearing loss ??? History of cerebrovascular accident ??? History of claudication ??? BPH (benign prostatic hyperplasia) ??? Obstructive sleep apnea syndrome ??? Malignant neoplasm of prostate ??? Benign prostatic hyperplasia ??? Postoperative urinary retention ??? Primary osteoarthritis of left hip ??? s/p L JIMI, posterior, Dr. Wu, 10/10/20 ??? ASCVD (arteriosclerotic cardiovascular disease) ??? History of carotid endarterectomy ??? Colorectal cancer ??? Diabetes mellitus ??? Hypercholesterolemia ??? Hypertensive disorder MEDICATIONS: ??? amLODIPine (Norvasc) tablet 5 mg ??? atorvastatin (Lipitor) tablet 80 mg ??? carvediloL (Coreg) tablet 25 mg ??? folic acid (Folvite) tablet 1,000 mcg ??? glimepiride (Amaryl) tablet 1 mg ??? isosorbide mononitrate CR (Imdur) tablet 30 mg ??? lisinopriL (Zestril) tablet 40 mg ??? tamsulosin (Flomax) capsule 0.4 mg ??? timoloL (Timoptic) 0.5 % ophthalmic solution 1 drop ??? glucose (Glutose) 40% oral geL OR dextrose 10% infusion OR glucagon (Glucagen) (1 mg/mL) injection solution 1 mg ??? POCT Fingerstick Glucose AND insulin lispro (HumaLOG;Admelog) (100 unit/mL) subcutaneous injection vial 1-4 Units ??? insulin lispro (HumaLOG;Admelog) (100 unit/mL) subcutaneous injection vial 0-8 Units ??? sodium chloride 0.9 % (flush) (BD PosiFlush Normal Saline 0.9) flush 5 mL ??? sodium chloride 0.9 % (flush) (BD PosiFlush Normal Saline 0.9) flush 5-20 mL ??? lidocaine (Xylocaine) 1% (10 mg/mL) injection 3 mg ??? polyethylene glycoL (Miralax) packet 17 g ??? senna-docusate (Pericolace) 8.6-50 mg per tablet 2 tablet ??? bisacodyl EC (Dulcolax) tablet 10 mg ??? bisacodyL (Dulcolax) suppository 10 mg ??? acetaminophen (Tylenol) tablet 1,000 mg ??? gabapentin (Neurontin) capsule 600 mg FOLLOWED BY [START ON 11/19/2021] gabapentin (Neurontin) capsule 300 mg ??? ketorolac (Toradol) (30 mg/mL) injection 15 mg ??? celecoxib (CeleBREX) capsule 200 mg ??? pantoprazole EC (Protonix) tablet 20 mg ??? lactated ringers infusion ??? ceFAZolin (Ancef) 2 g vial attach to sodium chloride 0.9% 100 mL Mini-Bag Plus ??? ondansetron (Zofran) tablet 4 mg OR ondansetron (pf) (Zofran) (2 mg/mL) injection 4 mg ??? rivaroxaban (Xarelto) tablet 10 mg ??? aspirin EC tablet 81 mg ??? BUpivacaine (Sensorcaine) (2.5 mg/mL) 0.25% injection ??? povidone-iodine (Betadine Ophthalmic Prep) 5 % ophthalmic solution ??? BBnytprtijt-EENYJVZayph-npbVAJzke-ketorolac (LISANDRA) (2.46 mg-0.005 mg-0.0008 mg-0.3 mg/mL) cb-articular inj soln in sodium chloride ??? oxyCODONE (Roxicodone) tablet 5 mg OR oxyCODONE (Roxicodone) tablet 10 mg OR oxyCODONE (Roxicodone) tablet 15 mg ??? lactated Ringers 1,000 mL (11/17/211947) OBJECTIVE: Temp: [36.3 ??C (97.3 ??F)-36.6 ??C (97.8 ??F)] Heart Rate: [44-48] Resp: [12-16] BP: (107-179)/(59-84) Intake/Output Summary (Last 24 hours) at 11/18/2021 0552 Last data filed at 11/18/2021 0325 Gross per 24 hour Intake 2401 ml Output 3600 ml Net -1199 ml There is no height or weight on file to calculate BMI. PE: General: NAD, awake/alert, purple abduction pillow in place CV: RRR assessed peripherally Resp: Breathing comfortably on 2L NC RLE: Silver mepilex dressing on posterior thigh c/d/i. Motor intact to EHL, FHL, TA. Sensation intact in foot/calf/thigh. Brisk capillary refill distally. Lab Results Component Value Date NA 139 11/18/2021 K 4.0 11/18/2021 CL 104 11/18/2021 CO2 26 11/18/2021 BUN 15 11/18/2021 CREATININE 0.65 (L) 11/18/2021 GLUCOSE 200 (H) 11/18/2021 CALCIUM 8.9 11/18/2021 Lab Results Component Value Date WBC 9.5 11/18/2021 HGB 11.1 (L) 11/18/2021 HCT 33.0 (L) 11/18/2021 MCV 94.3 (H) 11/18/2021 PLATELET 178 11/18/2021 Lab Results Component Value Date INR 1.1 07/18/2021 Imaging: AP Pelvis The right hip is reduced. There is no evidence of intra-op fracture. ASSESSMENT / PLAN: Wero Sadler is a 71 y.o. male 1 Day Post-Op s/p right JIMI, progressing well with stable vitals. Witt placed by urology due to inability to void in PACU, to remain in place for3 days before void trial. Patient to be evaluated by PT/OT today for discharge evaluation. Activity: WBAT RLE, enhanced precautions Closure: Resorbable sutures Dressing: Mepilex Ag x7 days Drain: n/a Anticoagulation: PEPPER Study - Rivaroxaban 10 mg qAM for 30 days Antibiotics: periop ancef Consults: PT/OT Dispo: pending PT/OT eval Follow-up: as scheduled Slim Smallwood MD 11/18/2021 Future Appointments Date Time Provider Department Center 12/22/2021 9:15 AM [facility] DX ROOM 3 [facility] Xray [facility] Rad 12/22/2021 10:00 AM Ismael Wu MD [facility] [place] 3C [facility] * Floridalma Barron RN - 11/17/2021 9:35 PM EDT Pt arrived to floor from PACU after posterior R JIMI. Pt alert and oriented x4. Pt reports pain 4/10. Pt denies any chest pain, shortness of breath, dizziness or nausea. Refer to doc flow sheets for full assessment. Witt in place, draining clear, yellow,urine. Abductor pillow in place. Patient oriented to room with call mcdonnell within reach. Masimo on. Will continue to monitor. * Rosalee Hummel RN - 11/17/2021 6:25 PM EDT 1643: Pt arrived from OR in bed to 16. Attached to monitors and alarms set appropriately for patient. Enhanced hip precautions maintained. 1700: Bladder scanned for 999+. Straight cath attempted by 2 RN's, only able to drain 125 of urine.Urology resident Gunner arellano for assistance. 1730: Uro Resident at bedside, successfully inserted witt catheter. 1425mL of urine drained. 1914: Report called to [address] [place]. * Cayetano Sena MD - 11/17/2021 4:51 PM EDT ORTHOPAEDIC SURGERY INPATIENT PROGRESS NOTE Patient Name: Wero Sadler Age: 71 y.o. Surgery/Issue: Right Total Hip Arthroplasty Attending: Dr. Wu Date of surgery: 11/17/2021 SUBJECTIVE / INTERVAL HISTORY: Making jokes. Pain well controlled. Denies CP, SOB, nausea, vomiting, numbness/weakness. FOCUSED REVIEW OF SYSTEMS: as above. Active Hospital Problems Diagnosis ??? s/p Right JIMI (Posterior), Dr. Wu - 11/17/21 Resolved Hospital Problems No resolved problems to display. Active Non-Hospital Problems Diagnosis ??? Altered mental status, unspecified altered mental status type ??? Stenosis of carotid artery, unspecified laterality ??? Hx of CABG ??? 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 Anterior ischemic optic neuropathy ??? Carcinoma of prostate ??? Dysphagia ??? Hearing loss ??? History of cerebrovascular accident ??? History of claudication ??? BPH (benign prostatic hyperplasia) ??? Obstructive sleep apnea syndrome ??? Malignant neoplasm of prostate ??? Benign prostatic hyperplasia ??? Postoperative urinary retention ??? Primary osteoarthritis of left hip ??? s/p L JIMI, posterior, Dr. Wu, 10/10/20 ??? ASCVD (arteriosclerotic cardiovascular disease) ??? History of carotid endarterectomy ??? Colorectal cancer ??? Diabetes mellitus ??? Hypercholesterolemia ??? Hypertensive disorder MEDICATIONS: ??? sodium chloride 0.9 % (flush) (BD PosiFlush Normal Saline 0.9) flush 5-20 mL ??? lidocaine (Xylocaine) 1% (10 mg/mL) injection 3 mg ??? lactated ringers infusion ??? POCT Fingerstick Glucose AND insulin lispro (HumaLOG;Admelog) (100 unit/mL) subcutaneous injection vial 1-4 Units ??? acetaminophen (Tylenol) tablet 1,000 mg ??? gabapentin (Neurontin) capsule 600 mg FOLLOWED BY [START ON 11/19/2021] gabapentin (Neurontin) capsule 300 mg ??? lactated ringers infusion ??? ceFAZolin (Ancef) 2 g vial attach to sodium chloride 0.9% 100 mL Mini-Bag Plus ??? BUpivacaine (Sensorcaine) (2.5 mg/mL) 0.25% injection ??? povidone-iodine (Betadine Ophthalmic Prep) 5 % ophthalmic solution ??? naloxone (Narcan) (0.4 mg/mL) injection 0.04 mg ??? fentaNYL (pf) (50 mcg/mL) multi-dose injection 12.5 mcg OR fentaNYL (pf) (50 mcg/mL) multi-dose injection 25 mcg ??? ondansetron (pf) (Zofran) (2 mg/mL) injection 4 mg ??? lactated ringers infusion ??? CFregbakuim-JVBWZYLgwqm-rylRKRuot-ketorolac (LISANDRA) (2.46 mg-0.005 mg-0.0008 mg-0.3 mg/mL) cb-articular inj soln in sodium chloride ??? oxyCODONE (Roxicodone) tablet 5 mg OR oxyCODONE (Roxicodone) tablet 10 mg OR oxyCODONE (Roxicodone) tablet 15 mg ??? lactated Ringers ??? lactated Ringers 1,000 mL (11/17/211947) ??? lactated Ringers OBJECTIVE: Temp: [36.3 ??C (97.3 ??F)] Heart Rate: [44-48] Resp: [12-15] BP: (162-179)/(69-80) Intake/Output Summary (Last 24 hours) at 11/17/20212046 Last data filed at 11/17/20211954 Gross per 24 hour Intake 1200 ml Output 2600 ml Net -1400 ml There is no height or weight on file to calculate BMI. PE: General: NAD, awake/alert CV: RRR assessed peripherally Resp: Breathing comfortably on 2L NC RLE: Silver mepi on posterior thigh c/d/i. Motor intact to EHL, FHL, TA. Sensation intact in foot/calf/thigh. Brisk capillary refill distally. Lab Results Component Value Date NA 136 07/21/2021 K 3.7 07/21/2021 CL 103 07/21/2021 CO2 21 (L) 07/21/2021 BUN 20 07/21/2021 CREATININE 0.65 (L) 07/21/2021 GLUCOSE 166 07/21/2021 CALCIUM 8.7 07/21/2021 Lab Results Component Value Date WBC 3.4 (L) 11/17/2021 HGB 11.8 (L) 11/17/2021 HCT 34.7 (L) 11/17/2021 MCV 92.8 11/17/2021 PLATELET 159 11/17/2021 Lab Results Component Value Date INR 1.1 07/18/2021 Imaging: AP Pelvis The right hip is reduced. There is no evidence of intra-op fracture. ASSESSMENT / PLAN: Wero Sadler is a 71 y.o. male Day of Surgery s/p right JIMI, progressing wellwith stable vitals. Discharge pending evaluation by PT/OT on POD1. Activity: WBAT RLE, enhanced precautions Closure: Resorbable sutures Dressing: Mepilex Ag x7 days Drain: n/a Anticoagulation: PEPPER Study and Rivaroxaban 10 mg qAM for 30 days Antibiotics: periop ancef Consults: PT/OT Dispo: pending PT/OT eval Follow-up: as scheduled Cayetano Sena MD 11/17/2021 Future Appointments Date Time Provider Department Center 12/22/2021 9:15 AM [facility] DX ROOM 3 [facility] Xray [facility] Rad 12/22/2021 10:00 AM Ismael Wu MD [facility] documented in this encounter H&P Notes * Slim Smallwood MD - 11/17/2021 12:09 PM EDT 24-HOUR H&P UPDATE Wero Sadler was seen and evaluated. No interval events or changes in health status since preoperative H+P. Denies angina, dyspnea, fevers, chills, or malaise within the last 14 days. All questions were answered. Stable for surgery as scheduled. Alert and oriented RRR CTAB Wero Sadler is a 71 y.o. male with right hip DJD pended for right JIMI. I discussed with the patient the risks, benefits, alternatives to operative management. Specifically I discussed the risks that included but were not limited to infection, bleeding, damage to surrounding nerves and vessels, blood clots, fracture related complications to include nonunion, malunion, m alrotation, revision of hardware, removal of hardware, cardiac and pulmonary complications related to general anesthesia, and . The patient elected to proceed with the above operative intervention. All questions were answered. I reviewed consent and ensured the patient was properly marked. Charleen Smallwood MD Orthopaedic Surgery [facility] Associated attestation - Ismael Wu MD - 11/17/2021 5:06 PM EDT Images from the original note were not included. Department of Orthopaedics Division of Adult Joint Reconstructive Surgery November 17, 2021 I had the pleasure of evaluating Wero Sadler in the pre-op area before his operation. I have seenand examined the patient and reviewed the history/physical and I agree with the details as written.The assessment and plan were formulated in discussion with me and I agree with them as documented. I reviewed the risks and benefits of surgery with the patient. The patient understood and wished toelectively proceed with the surgery. All questions were answered. Ismael Wu MD, MSc Division of Adult Reconstructive [employer] ArchitectDevelopment Mechanic of Orthopaedics Department of Orthopaedics [facility] [phone] [email or web address] documented in this encounter Procedure Notes * Sai Kaplan MD - 11/17/2021 6:04 PM EDT Urology Procedure Note Brief hx: 71M w/ hx of prostate cancer (s/p radiation and now on ADT), BPH (s/p PVP with Dr. Engle 02/21) who underwent R hip with orthopedics today. PACU bladder scan >999cc. PACU staff unable toplace straight cath or coude catheter. Procedure: Witt placement Pre-op diagnosis: Difficult witt placement Post-op diagnosis: same Indications: Post op Urinary retention Physicians: Sai Kaplan MD Anesthesia: Lidocaine jelly Urojet x2 Description: Sterile prep and drape of genitals. 18F coue witt passed easily. Return of clear yellow urine obtained. 10cc's of water placed in balloon. Findings: uncomplicated witt placement Specimens: None Complications: None Fluids: None EBL: None Drains: 18F coude witt to gravity Recommendations: - given bladder scan >999, recommend keeping witt catheter in place for 3 days before trial of void - avoid/limit narcotics, anti-spasmodics Sai Kaplan MD Urology PGY-2 documented in this encounter Miscellaneous Notes * Initial Assessments - Gissel Ellison RN - 11/18/2021 11:16 AM EDT Office of Care Management Initial Assessment Gissel Ellison RN reviewed record and discussed patient with Care Team. Source of Information: Team, bedside nurse, medical record, and Patient Introduced self/reviewed role; services accepted. Reason for Hospitalization: S/P total hip arthroplasty [Z96.649] Covid Vaccination Status: 1st, 2nd & booster (Moderna X4) Last COVID test: Lab Results Component Value Date [id number] Not Detected 07/19/2021 Past medical History: Past Medical History: Diagnosis Date ??? 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 can not read. can see shadows. No vision in left eye since child saavedra accident. ??? Cancer prostate, colorectal ??? Claudication ??? Colon adenocarcinoma 2009 recieved chemo in [place] ??? Coronary artery disease ??? Coronary artery dissection ??? CPAP (continuous positive airway pressure) dependence CPAP ??? Diabetes treated with medication ??? Gastroesophageal reflux ??? High blood pressure ??? Hyperlipidemia ??? Obstructive sleep apnea ??? Status post chemotherapy 2009 colon cancer ??? Stroke 9-20 Hospitalizations Within the Past 30 Days: no previous admission in last 30 days Current Decision-Making Capacity: Self If AD's have not been completed the following surrogate would be surrogate decision maker per [place] surrogate decision making law. (Only good for 180 days) Any patient receiving care in [place] must abide by [place] law. The hierarchy for surrogate decision making is: (a) Patient???s spouse, or civil union partner or common law spouse unless there is a divorce proceeding, separation agreement, or restraining order limiting that person???s relationship with the patient. (b) Any adult son or daughter of the patient. (c) Either parent of the patient. (d) Any adult brother or sister of the patient. (e) Any adult grandchild of the patient. (f) Any grandparent of the patient. (g) Any adult aunt, uncle, niece, or nephew of the patient. (h) A close friend of the patient. (i) The agent with financial power of attorney recruiter or a conservator appointed in accordance with RSA 464-A. (j) The guardian of the patient???s estate. Advance Care Planning: Attempt Cardiopulmonary Resuscitation - Inpatient <no information> -Advanced Directive: No, declines Current Coping/Education/Information Needs: none Current Functional Ability: Assistive Equipment and Assistive Person Functional Status Prior to Admission: Independent Prior ADLs & IADLs: Assistance Needed with ADLs & IADLs Driving: Family / Friends Provide Rides - Blind, depends on SO and family for rides Home Environment: Others in the home: significant other (Amy). Current Living Arrangements: home/apartment/condo. Accessibility Concerns:2 step to enter 2 story home with a flight of stairs to get to his bedroom.. Resource / Environmental Concerns: Resource/Environmental Concerns: none Current DME: shower chair, raised toilet seat, wheelchair - manual Home Address confirmed as: [address] [place] [phone] Social & Family Supports: All names listed below confirmed with patient as current and correct Extended Emergency Contact Information Primary Emergency Contact: AMY DEGROOT Address: [address] [place], [place] [id number] [place] [address] of [facility] Mobile Relation: Significant Other Secondary Emergency Contact: WANDA SADLER Mobile Relation: Sibling Current Care Provided by: self Provides Primary Care For: no one Caregiver if needed: significant other Quality of Family relationships: supportive, involved, helpful Community Resources being provided currently: none Behavioral Health History: bert Substance Use/Abuse listed: Social History Tobacco Use Smoking Status Former Smoker ??? Packs/day: 4.00 ??? Years: 30.00 ??? Pack years: 120.00 ??? Types: Cigarettes ??? Quit date: 1992 ??? Years since quittin.7 Smokeless Tobacco Never Used 0 No problems reported 1-2 Low level 3-5 Moderate level 6-8 Substantial level 9- 10 Severe level 0 to 7 points: Low risk 8 to 15 points: Medium risk 16 to 19 points: High risk 20 to 40 points: Addiction likely Other Pertinent/Service Specific Information: [email or web address] Health/Prescription Coverage: Primary Insurance: MEDICARE Payor: MEDICARE / Plan: MEDICARE PART A & B / Product Type: *No Product type* / Secondary Insurance: AARP SUPPLEMENT Secondary Insurance? (Only Medicare A&B): Yes (AARP) ; Prescription Coverage: Preferred Pharmacy: [id number] - [place], [place] - [address] [facility] [address] [facility] [address] [place] [address] [place] [phone] [place], [place] - [address] [facility] [address] [place] Status: Patient is a : No Primary Care Provider: Alo Carey DO [phone] Patient/Caregiver Goals of Treatment: return home when medically ready for discharge Potential Needs for Transition of Care: home health care Agency Referrals: I have met with the patient to: ?? discuss discharge planning needs. ?? provide the [facility], Office of Care Management letter from the Registered Nurse Fetal pertaining to rehabreferrals. ?? provide a letter describing our affiliations within the [facility] and educate about their right to choose where referrals are sent. ?? provide a list of Home Health Agencies / Durable Medical Equipment vendors which serve their preferred geographic area. ?? provided patient with [facility] Star Quality Rating handout. They have requested referrals to: [facility] [address] [place] [address] Note routed to a Commercial Stripper who will communicate referrals to facilities and provide any required information. Transportation: no concerns Transportation Anticipated: family or friend will provide Concerns to be Addressed: denies needs/concerns at this time Assessment: Patient is admitted to Ortho service for S/P total hip arthroplasty [Z96.649] Plan: patient worked with PT/OT and was cleared for home. Will discharge with home with VNA A member of the Care Management team will continue to monitor progress, follow for continuity of care and assist with transition of care planning. Gissel SANTOS, RN Phone: [phone] Pager: [phone] * Plan of Care - Floridalma Barron RN - 11/18/2021 4:24 AM EDT OUTCOME EVALUATION NOTE: OUTCOME SUMMARY: Patient progressing towards d/c goals appropriately at this time. Patient's pain adequately controlled with scheduled pain medications and PRN, see MAR for medications given. Pt is alert an oriented x 4, VSS, +CSMT. Abductor pillow in place for enhanced hip precautions. Witt in place for retention, 1450 ml drained when witt was placed in PACU. Silver surgical dressing in place to RLE, remains clean, dry and intact. Pt has home CPAP in room, wanted to use NC overnight instead. Pt is blind in [place] r/t prior stroke, per pt and L eye has ferry terminal agent prosthesis. No acute events overnight. Will continue to monitor and help patient reach d/c goals. PLAN MOVING FORWARD: Pain control Mobilize PT / OT Monitor blood glucose Enhanced hip precautions D/c planning INDIVIDUALIZED FALL PREVENTION: Patient is currently a high risk to Fall. Patient educated on bed/chair alarm, demonstrates proper use of call mcdonnell and verbalizes understanding of fall preventions implemented. Patient-specific fall risk factors per assessment: [current deficits]: Invasive lines, Pain, Medications, Hospital Environment. Assistance [level of assistance required for transfers and ambulation]: Not out of bed yet, anticipate 1-2 assist w/ FWW Supervision [direct monitoring required during toileting and ADLs]: Hands on assist with ADL's Surveillance [continuous indirect monitoring]: Masimo, Purposeful Rounding, Nurse Knowledge Exchange Patient-specific fall prevention interventions for sensory deficits provided, if applicable: Yes- glasses, pt is blind * Op Note - Ismael Wu MD - 11/17/2021 2:05 PM EDT [facility] Operative Note Patient Name: Weor Sadler : [id number] MR#: [id number] Case Date: 11/17/2021 Surgeon: Surgeon(s) and Role: * Ismael Wu MD - Primary * Slim Smallwood MD - Resident Preoperative Diagnosis: Osteoarthritis right Hip Postoperative Diagnosis: Same Procedure Performed: right Total Hip Arthroplasty (CPT code 94909) Anesthesia: Spinal IVF: See anesthesia report Estimated Blood Loss: 300ml Urine Output: See anesthesia report Drains: none Specimens removed during surgery: None Surgical Closure: Primary Closure - skin incision is completely closed without any wires, amy, drains or other devices COMPLICATIONS: None apparent ANTIBIOTICS: Cefazolin in a weight based dose IV given within 1 hour prior to skin incision OTHER MEDICATIONS: Tranexemic acid 10mg/kg given at the beginning of the procedure FINDINGS: Severe degenerative disease of the hip involving the femoral head and acetabulum with areas of full thickness cartilage loss. IMPLANTS: System: tocario Femoral Stem: Actis high offset, Size 7; collared, SCOTT coated Acetabulum: [place] Gription size 60mm; x2 6.5mm cancellous screws Liner: 60 x 36mm neutral liner Femoral Head: 36mm +8.5mm ceramic head (Please also see the Surgical Encounter Summary for any Implant and Specimen details pertinent to this patient.) Implant Summary in EHR: Implant Name Type Inv. Item Serial No. Boomboat Operator Lot No. LRB No. Used Action SHELL ACET HIP 60MM POR CTD MULTI HOLE TI PINNACLE GRIPTION ([id number]) (AUTOREQ) - [id number] IMPLANTS SHELL ACET HIP 60MM POR CTD MULTI HOLE TI PINNACLE GRIPTION ([id number]) (AutoReq) [employer] DARIAN [id number] Right 1 Implanted LINER ACET HIP [id number] STND POLY PINNACLE ALTRX ([id number]) (AUTOREQ) - [id number] IMPLANTS LINER ACET HIP [id number] STND POLY PINNACLE ALTRX ([id number]) (AutoReq) [employer] DARIAN [id number] Right 1 Implanted SCREW HIP ACET 6.5X25MM FT CANC HEX DRV TI PINNACLE ([id number]) (AUTOREQ) - [id number] IMPLANTS SCREWHIP ACET 6.5X25MM FT CANC HEX DRV TI PINNACLE ([id number]) (AutoReq) [employer] DARIAN [id number] Right 1 Implanted SCREW HIP ACET 6.5X20MM FT CANC HEX DRV TI PINNACLE ([id number]) (AUTOREQ) - [id number] IMPLANTS SCREWHIP ACET 6.5X20MM FT CANC HEX DRV TI PINNACLE ([id number]) (AutoReq) [employer] [facility] DARIAN [id number] Right 1 Implanted STEM FEMORAL HIP SZ 7 PROX 12/14 TAPER POR CLLR HIGH OFST TI ([id number]) (AUTOREQ) - [id number] IMPLANTS STEM FEMORAL HIP SZ 7 PROX 12/14 TAPER POR CLLR HIGH OFST TI ([id number]) (AutoReq) [employer] [facility] DARIAN [id number] Right 1 Implanted HEAD FEMORAL HIP 36MM +8.5MM OFFSET 12/14 TPR CERAMIC ([id number]) (AUTOREQ) - [id number] IMPLANTS HEAD FEMORAL HIP 36MM +8.5MM OFFSET 12/14 TPR CERAMIC ([id number]) (AutoReq) [employer] [facility] DARIAN [id number] Right 1 Implanted PATIENT HISTORY and INDICATIONS for surgery: The patient is a 71 y.o. year-old male with a past medical history as noted below and with a long history of right hip pain and degenerative joint disease secondary to degenerative arthritis. After considering the patient's condition and the impact of their hip on the patient's quality of life and failure of consevative treatment, total hip replacement was offered as a reasonable option. Prior to the surgery I discussed the nature of the total hip replacement surgery including alternatives to surgery and the purpose of, and indications for proceeding with surgery. I discussed that this is an elective operation and that the patient should carefully weigh their options before proceeding with surgery. I discussed that this surgery is a shared decision between the patient and the surgeon. Risks and benefits and alternatives of the procedure have been explained to the patient and their family. Anesthesia complications and risks include but are not limited to stroke, heart attack, and . The surgical risks include but are not limited to infection, instability/dislocation, bleeding, nerve and blood vessel injury, deep vein thrombosis, pulmonary embolism, stiffness, pain, scar, need for reoperation, leg length discrepancy, thigh numbness, weakness, and mechanical failure of the implant including loosening, metal complications, metal allergy, wear or breakage. I discussed the expected recovery from surgery and the importance of compliance with all our pre and post-operative re commendations in order to maximize the recovery. The patient understands the risks of loss of life,loss of limb and, loss of function and wishes to proceed. A signed and witnessed consent was obtained and placed in the chart. Past Medical History: Diagnosis Date ??? 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 can not read. can see shadows. No vision in left eye since child saavedra accident. ??? Cancer prostate, colorectal ??? Claudication ??? Colon adenocarcinoma 2008 recieved chemo in [place] ??? Coronary artery disease ??? Coronary artery dissection ??? CPAP (continuous positive airway pressure) dependence CPAP ??? Diabetes treated with medication ??? Gastroesophageal reflux ??? High blood pressure ??? Hyperlipidemia ??? Obstructive sleep apnea ??? Status post chemotherapy 2008 colon cancer ??? Stroke 11-24-19 DESCRIPTION OF PROCEDURE: The patient was identified in the preoperative area. A signed and witness consent was confirmed in the chart. The 24 hour update and the pre-operative checklist were completed.The surgery team confirmed with the patient the operative plan and surgical site. The surgical site was confirmed by the patient and marked by the surgical team. The patient was given the opportunity to ask any further questions and all questions were answered. The patient was brought to the operating room where anesthesia was induced by the anesthesia team without incident. Patient Positioning: The patient was placed in the lateral decubitus position on a standard table using hip positioners.An axillary roll was placed. All extremities were padded to ensure adequate protection including floating the peroneal nerve of the down leg. Time Out: A timeout was performed prior to the procedure which verified the correct patient, positioning, operation to be performed, operative site, antibiotics, allergies, imaging, and any other concerns. Allparties were in agreement. Procedure in Detail: Surgical Approach: The operative site was cleaned and draped in the usual sterile fashion. A final timeout was performed with all parties in agreement. A posterolateral approach to the hip was utilized. The skin was infiltrated with 10cc of 0.25% marcaine plain. A 15cm skin incision was made centered over the greatertrochanter in line with the femur. This was taken down through skin and subcutaneous tissue using a 10 blade. Bleeding was controlled using electrocautery. The fascia was identified and split in linewith the femur. The charnley retractor was then placed. A capsulotomy was made down to the femoral neck taking a full thickness posterior flap. The piriformis and posterior capsule along with the conjoint tendon of the short external rotators were tagged for later repair. The hip was then gently dislocated with flexion and internal rotation using a bone hook for assistance. The femur was then exposed and marked based on preoperative templating for an appropriate length femoral neck cut. The femoral cut was made using the saw, taking care to protect deep structures and the greater trochanter. The femoral head was removed. Acetabular Preparation: The acetabulum was exposed. The remaining labrum was circumferentially removed along with the central pulvinar. The acetabulum was then reamed to good bleeding bone with adequate wall coverage and a trial cup was impacted into place. Osteophytes were removed peripherally. With good fit achieved, the trial cup was removed and the final cup impacted into place. Bony and soft tissue landmarks along with preoperative templating information were utilized to confirm proper version and inclination. The first half of the periarticular cocktail was injected anteriorly and inferiorly around the acetabulum staying away from the posterior nerve. Two acetabular screws were placed and confirmed deep to the rim of the cup. A trial liner was placed. Femoral Preparation: The femur was exposed. The lateral remnant of the neck was removed the box osteotome and the femoral canal penetrated using the canal finder. The femur was then sequentially broached. Care was taken to avoid varus angulation of the stem and to have appropriate anteversion. Once a stable broach was in, a trial neck and head was placed. The hip was reduced and stability examined and found to be appropriate with good adventist of leg length and offset. A intraoperative x ray was taken and confirmed appropriate sizing and positioning of implants along with proper adventist of leg length and offset. The hip was dislocated, trial head, neck and liner removed and the acetabulum re-exposed. Thefinal poly liner was impacted and confirmed seated. The femur was re-exposed and neck calcar planed if necessary followed by removal of the broach. Thecanal was irrigated and the calcar and proximal bone closely examined. There was no evidence of fractures. The final stem was impacted. The erwin taper was then cleaned and dried and the final head impact into place. The acetabulum was irrigated and confirmed to be free of debris. The hip was then r educed and taken through range of motion. The hip was stable in abduction and external rotation, adduction and external rotation, flexion past 90 degrees with internal rotation past 50 degrees. It did not sublux throughout the range of motion and no impingement was detected. Leg lengths were appropriately restored with appropriate soft tissue shuck tensioning and knee flexion. Closure: The hip was then copiously irrigated with dilute betadine followed by normal saline. The subcutaneous tissues and muscle throughout the case was infiltrated with a combination of 0.25% marcaine with epi, 50mcg of clonidine and 30mg of toradol for a total of 50cc. The hip was then closed in layers. The posterior capsule was closed with #1 Ethibond through drill holes in the greater trochanter. Thefascia was closed with #2 Strata Fix. The deep layer was closed with 0 Vicryl and the deep dermis by 2-0 Vicryl . Skin was closed using a running 3-0 Monocryl subcuticular. The skin was then cleaned and glued followed by a sterile dressing. The drapes were then taken down and the patient was placed supine. Leg lengths were confirmed to beappropriate and the patient's lower extremities were warm and well perfused with brisk capillary refill and palpable pulses. An abduction pillow was placed. The patient was then awoken, transferred to the [facility] and taken to the PACU in stable condition. They tolerated the procedure well. The patient's family/caregivers were made aware of their condition. Final sponge and needle counts were correct x2. POSTOPERATIVE PLAN: Activity: WBAT, posterior hip precautions. Abduction pillow until spinal has worn off DVT Prophylaxis: Risk stratified DVT prophylaxis with ASA , early ambulation and SCDs Antibiotics: Standard postoperative antibiotics x 24 hours Other: Total Joint Protocol Details of Postoperative Plan: (avoid IV narcotics) ?? 5-10 mg Oxycodone Q 4 hours po PRN ?? 2 mg Dilaudid po for breakthrough pain q 3-4 hours?? PRN ?? for breakthrough pain 15 mg Toradol iv or im q 6 hours (max 4 doses) ?? 1000mg Tylenol po??? q8 hour ?? Tramadol 50mg q6hr PRN if patient sensitive to narcotics ?? 600 mg Neurontin po qhs for 2 days followed by 300 mg Neurontin po qhs for 4 weeks (for insomnia) ?? Celebrex 200 mg po q 12 hours while in house with transition to Naprosyn 500mg bid at discharge ?? Dexamethasone 4 mg po q 24 hours for 2 days (if diabetic add SSI) ?? Protonix 20mg qd x 2 weeks (or other PPI) ?? Zofran 4 mg po/iv q 8 hours PRN nausea ?? Encourage voiding q 4 hours. If unable to void bladder scan and encourage to void in 30 minutes.If PVR > 400 then straight cath. ?? AP Pelvis in PACU ?? Perioperative prophylactic antibiotics for the next 24 hours ?? Weight bearing status of operative extremity: Weight bearing as tolerated Posterior hip precautions with an abduction pillow while in bed ?? Wound closure: Subcuticular absorbable suture with skin glue ?? Dressing changes: Mepilex Silver (Do not change for 7 days then a dry sterile dressing). Prineo skin glue to fall off on it's own. ?? Follow-up Plan: As scheduled prior to surgery (approx. 5 weeks with x-rays) ?? Anticoagulation: ASA 81mg BID for 30 days ?? Any possible barriers to discharge: None ?? Plan for hospital stay: Standard ?? Anticipated Length of Stay: 1-2 days ?? RECOMMENDATION for Postoperative Care: Continue CPAP Continue aspirin, statin, carvedilol (hold if SBP<105 or HR<55), amlodipine (hold if SBP<120) and timolol eye drops Resume metformin and Amaryl with oral intake FSBS q 4 with sensitive correction Humalog Resume Plavix when okay to do so from a surgical and anesthesiology perspective. Attestation: Case Date: 11/17/2021 I was present and I participated during the entire procedure (does not need to include opening and closing). Ismael Wu MD 11/17/2021 If the residential living assistant surgeon is other than a qualified resident, I certify that the services were medically necessary and there was no qualified resident available to perform the services. documented in this encounter Plan of Treatment Upcoming Encounters Date Type Department Care Team (Late st Contact Info) Description 10/11/2023 10:00 AM EDT Tech [place] [phone] Giacomo Queen 10/11/2023 11:15 AM EDT Office Visit [place] [phone] Basim Barr MD [facility] [place] [address] 10/18/2023 9:00 AM EDT Office Visit Hematology/Oncology at [address] [phone] Cl Hess MD [facility] [place] [address] Yessi Renee APRN [address] [place] [address] DR HEMATOLOGY AND ONCOLOGY [place], [place] [phone] 10/18/2023 9:30 AM EDT Infusion Hematology Oncology at [address] [phone] 10/24/2023 9:30 AM EDT Scheduled View Only Radiation Oncology at [address] [phone] [place] 10/24/2023 10:00 AM EDT Office Visit Radiation Oncology at [address] [phone] 67 Bigg Peters MD [address] [place] [address] DR RADIATION ONCOLOGY [place], [place] [address] [phone] 11/01/2023 9:00 AM EDT Office Visit Hematology/Oncology at [address] [phone] Cl Hess MD [facility] [place] [address] Yessi Renee APRN [address] [place] [address] DR HEMATOLOGY AND ONCOLOGY [place], [place] [phone] 11/01/2023 9:30 AM EDT Infusion Hematology Oncology at [address] [phone] 12/24/2023 1:00 PM EDT TH Visit (TeleHealth) Radiation Oncology at [address] [phone] Ping Moore PA [facility] [place] [address] Scheduled Referrals Name Type Priority Associated Diagnoses Orde r Schedule Referral to Home Health Outpatient Referral Routine Status post total replacement of right hip Ordered: 11/18/2021 documented as of this encounter Procedures Procedure Name Priority Date/Time Associated Diagnosis Comments POCT GLUCOSE Routine 11/18/2021 11:52 AM EDT POCT GLUCOSE Routine 11/18/2021 7:50 AM EDT HEMOGRAM Routine 11/18/2021 3:20 AM EDT DIFFERENTIAL, AUTOMATED Routine 11/18/2021 3:20 AM EDT HC VENIPUNCTURE Routine 11/18/2021 3:20 AM EDT BASIC METABOLIC PANEL Routine 11/18/2021 3:20 AM EDT POCT GLUCOSE Routine 11/18/2021 3:19 AM EDT POCT GLUCOSE Routine 11/18/2021 12:05 AM EDT XR PELVIS Routine 11/17/2021 8:01 PM EDT POCT GLUCOSE Routine 11/17/2021 7:43 PM EDT POCT GLUCOSE Routine 11/17/2021 4:50 PM EDT MODIFIER PINNACLE GRIPTION ACETABULUM DEPUY 11/17/2021 1:37 PM EDT Primary osteoarthritis of right hip Right leg pain MODIFIER ACTIS HIP STEM DEPUY 11/17/2021 1:37 PM EDT Primary osteoarthritis of right hip Right leg pain Arthroplasty Acetabular/Prox Fem Prostc Agrft/Algrft ([id number]) 11/17/2021 1:37 PM EDT Primary osteoarthritis of right hip Right leg pain POCT GLUCOSE Routine 11/17/2021 1:14 PM EDT TYPE AND SCREEN VALIDITY Routine 11/17/2021 1:00 PM EDT ABORH RECHECK STATUS Routine 11/17/2021 1:00 PM EDT HC HEMOGRAM Routine 11/17/2021 1:00 PM EDT ABO/RH TYPING Routine 11/17/2021 1:00 PM EDT ANTIBODY SCREEN Routine 11/17/2021 1:00 PM EDT HC ANTIBODY DETECTION,CAPTURE-R Routine 11/17/2021 1:00 PM EDT IMPLANTABLE DEVICES SCAN 11/17/2021 12:00 AM EDT documented in this encounter Results * POCT Glucose (11/18/2021 11:52 AM EDT) Glucose, POC 182 65 - 199 mg/dL [facility] Comment: Supplemental ranges: <140 mg/dL before meals <180 mg/dL all other times of the day Blood 11/18/2021 11:5 2 AM EDT 11/18/2021 11:52 AM EDT Ismael Wu MD POINT OF CARE TEST ORDERABLES [facility] [place] [address] * POCT Glucose (11/18/2021 7:50 AM EDT) Glucose, POC 159 65 - 199 mg/dL [facility] Comment: Supplemental ranges: <140 mg/dL before meals <180 mg/dL all other times of the day Blood 11/18/2021 7:50 AM EDT 11/18/2021 7:50 AM EDT Ismael Wu MD POINT OF CARE TEST ORDERABLES [facility] [place] [address] * (ABNORMAL) Differential, Automated (11/18/2021 3:20 AM EDT) Pathologist [facility] Neutrophil % 86.1 % [facility] Neutrophil Absolute 8.17(H) 1.70 - 6.10 x10(3)/mc L [facility] Lymph % 6.9 % [facility] Lymphocytes Abs 0.7(L) 0.9 - 3.2 x10(3)/mc L [facility] Monocyte % 6.5 % [facility] Monocyte Abs 0.6 0.3 - 0.9 x10(3)/mc L [facility] Eos % 0.1 % [facility] Eosinophils Abs 0.0 0.0 - 0.4 x10(3)/mc L [facility] Basophil % 0.1 % [facility] Baso Absolute 0.0 0.0 - 0.1 x10(3)/mc L [facility] Immature Gran % 0.30 % [facility] Comment: Immature granulocytes(IG's)percentage and absolute count will include metamyelocytes, myelocytes, and promyelocytes. Blood smears from CBCs yielding IG's will be scanned manually for concordance. If this scan disagrees with the automated IG or if promyelocytes are noted, a manual differential will be performed. Immature Gran Absolute 0.03 0.00 - 0.04 x10(3)/[facility] Blood 11/18/2021 3:20 AM EDT 11/18/2021 3:40 AM EDT Narrative Resulting Agency Comment Spec In Lab Slim Smallwood MD HEMATOLOGY ORDERABLE S [facility] [place] [address] * (ABNORMAL) Hemogram (11/18/2021 3:20 AM EDT) White Blood Cell 9.5 4.0 - 9.5 x10(3)/[facility] Red Blood Cell 3.50(L) 4.58 - 5.54 x10(6)/[facility] Hemoglobin 11.1(L) 13.7 - 16.5 g/dL [facility] Hematocrit 33.0(L) 40.5 - 48.5 % [facility] Mean Cell Volume 94.3(H) 82.9 - 93.1 [facility] Mean Cell Hemoglobin 31.7 27.5 - 32.1 pg [facility] Mean Cell Hemoglobin Concentration 33.6 32.0 - 35.7 g/dL [facility] Platelet 178 145 - 357 x10(3)/[facility] RDW Standard Deviation 43.3 36.0 - 45.0 [facility] RDW coefficient of variation 12.6 11.4 - 13.8 % [facility] Mean Platelet Volume 10.1 7.6 - 12.9 [facility] NRBC% auto 0.0 % [facility] NRBC Absolute 0.000 0.000 - 0.000 x10(3)/[facility] Blood 11/18/2021 3:20 AM EDT 11/18/2021 3:40 AM EDT Narrative Resulting Agency Comment Spec In Lab Slim Smallwood MD HEMATOLOGY ORDERABLE S [facility] [place] [address] * (ABNORMAL) Basic Metabolic Panel (non-fasting) (11/18/2021 3:20 AM EDT) Glucose 200(H) 65 - 199 mg/dL [facility] Comment:Diabetes: >=200 mg/d L plus symptoms Blood Urea Nitrogen 15 10 - 20 mg/dL [facility] Creatinine 0.65(L) 0.80 - 1.50 mg/dL [facility] Sodium 139 135 - 145 mmol/L [facility] Potassium 4.0 3.5 - 5.0 mmol/L [facility] Comment: Please note: ??Patients with WBC >100,000 may have falsely elevated Potassium levels. ??For accurate Potassium quantification in these patients send serum separator tube (gold top) for subsequent determinations. ??Contact the Clinical Chemistry Laboratory if there are any questions. Chloride 104 98 - 107 mmol/L [facility] Carbon Dioxide 26 22 - 31 mmol/L [facility] Anion Gap 9 5 - 15 mmol/L [facility] Calcium 8.9 8.5 - 10.5 mg/dL [facility] Est Glomerular Filtration Rate 99 >=60 mL/min/1. 73 m?? [facility] [...] and symptoms in addition to eGFR. Blood 11/18/2021 3:20 AM EDT 11/18/2021 3:40 AM EDT Narrative Resulting Agency Comment Spec In Lab Ismael Wu MD CHEMISTRY ORDERABLE S Performing Organization Address [facility] Co de Phone Number [facility] [place] [address] * (ABNORMAL) POCT Glucose (11/18/2021 3:19 AM EDT) Glucose, POC 206(H) 65 - 199 mg/dL [facility] Comment: Supplemental ranges: <140 mg/dL before meals <180 mg/dL all other times of the day Blood 11/18/2021 3:19 AM EDT 11/18/2021 3:19 AM EDT Ismael Wu MD POINT OF CARE TEST ORDERABLES Performing Organization Address [facility] de Phone Number [facility] [place] [address] * (ABNORMAL) POCT Glucose (11/18/2021 12:05 AM EDT) Glucose, POC 239(H) 65 - 199 mg/dL [facility] Comment: Supplemental ranges: <140 mg/dL before meals <180 mg/dL all other times of the day Blood 11/18/2021 12:0 5 AM EDT 11/18/2021 12:05 AM EDT Ismael Wu MD POINT OF CARE TEST ORDERABLES Performing Organization Address [facility] Co de Phone Number [facility] [place] [address] * XR Pelvis (Generic) (11/17/2021 8:01 PM EDT) Anatomical Region Laterality Modality Pelvis N/A Digital Radiogra phy Impressions 11/18/2021 4:46 PM EDT Status post interval right total hip arthroplasty without radiographic finding of complication or acute abnormality. Thank you for letting us participate in the care of this patient. ??If you are a health care provider and have any questions regarding this report, please contact the number below. ??For patients who have questions please contact the health ambulatory care nurse that requested your imaging first. ? Electronically signed by: Deidra Adams MD, [facility] ([phone]), at 11/18/2021 4:46 PM Narrative 11/18/2021 4:46 PM EDT EXAMINATION: XR PELVIS (GENERIC) CLINICAL HISTORY: s/p right JIMI TECHNIQUE: 1 views of the pelvis, AP portable supine PACU at 1999 COMPARISON: Radiographs November 17, 2020 FINDINGS: Noncemented right total hip arthroplasty hardware with derotation screws in acetabular cup is intact without adjacent lucency, periprosthetic fracture or joint malalignment. The femoral head component is symmetrically seated in the acetabular cup. Soft tissue air around the hip is concordant with the immediately preceding surgery. Prostate fiducials, peripheral arterial calcification, postoperative lower lumbar spine with degenerative disc disease and partially imaged left total hip arthroplasty are unchanged. Procedure Note Deidra Adams MD - 11/18/2021 EXAMINATION: XR PELVIS (GENERIC) CLINICAL HISTORY: s/p right JIMI TECHNIQUE: 1 views of the pelvis, AP portable supine PACU at 1999 COMPARISON: Radiographs November 17, 2020 FINDINGS: Noncemented right total hip arthroplasty hardware with derotation screwsin acetabular cup is intact without adjacent lucency, periprosthetic fractureor joint malalignment. The femoral head component is symmetrically seated inthe acetabular cup. Soft tissue air around the hip is concordant with the immediately preceding surgery. Prostate fiducials, peripheral arterial calcification, postoperativelower lumbar spine with degenerative disc disease and partially imaged lefttotal hip arthroplasty are unchanged. IMPRESSION Status post interval right total hip arthroplasty without radiographicfinding of complication or acute abnormality. Thank you for letting us participate in the care of this patient. If youare a health care provider and have any questions regarding this report,please contact the number below. For patients who have questions please contactthe health ambulatory care nurse that requested your imaging first. Electronically signed by: Deidra Adams MD, [facility]([phone]), at 11/18/2021 4:46 PM Ismael Wu MD IMG DX ORDERABLES * (ABNORMAL) POCT Glucose (11/17/2021 7:43 PM EDT) Glucose, POC 216(H) 65 - 199 mg/dL [facility] Comment: Supplemental ranges: <140 mg/dL before meals <180 mg/dL all other times of the day Blood 11/17/2021 7:43 PM EDT 11/17/2021 7:43 PM EDT Ismael Wu MD POINT OF CARE TEST ORDERABLES [facility] [place] [address] * POCT Glucose (11/17/2021 4:50 PM EDT) Glucose, POC 178 65 - 199 mg/dL [facility] Comment: Supplemental ranges: <140 mg/dL before meals <180 mg/dL all other times of the day Blood 11/17/2021 4:50 PM EDT 11/17/2021 4:50 PM EDT Ismael Wu MD POINT OF CARE TEST ORDERABLES [facility] [place] [address] * POCT Glucose (11/17/2021 1:14 PM EDT) Glucose, POC 134 65 - 199 mg/dL [facility] Comment: Supplemental ranges: <140 mg/dL before meals <180 mg/dL all other times of the day Blood 11/17/2021 1:14 PM EDT 11/17/2021 1:14 PM EDT Ismael Wu MD POINT OF CARE TEST ORDERABLES Performing Organization Address [facility] Co de Phone Number [facility] [place] [address] * Type and Screen Validity (11/17/2021 1:00 PM EDT) T&S only valid at [facility] Comment:This Type and Screen result is only valid at the [facility] Blood 11/17/2021 1:00 PM EDT 11/17/2021 1:05 PM EDT Narrative Resulting Agency Comment Spec In Lab Eros Foss MD BLOOD BANK LAB ORDER JOSE FRANCISCO Performing Organization Address City/[facility]/ZIP Co de Phone Number [facility] [place] [address] * ABORH Recheck Status (11/17/2021 1:00 PM EDT) ABORH Type Recheck Completed [facility] Blood 11/17/2021 1:00 PM EDT 11/17/2021 1:05 PM EDT Narrative Resulting Agency Comment Spec In Lab Eros Foss MD BLOOD BANK LAB ORDER JOSE FRANCISCO Performing Organization Address City/[facility]/ZIP Co de Phone Number [facility] [place] [address] * Antibody screen (11/17/2021 1:00 PM EDT) Ab Screen Interp Negative [facility] Expires at [id number] on: 11/20/2021 [facility] Blood 11/17/2021 1:00 PM EDT 11/17/2021 1:05 PM EDT Narrative Resulting Agency Comment Spec In Lab Eros Foss MD BLOOD BANK LAB ORDER JOSE FRANCISCO [facility] [place] [address] * ABO/Rh Typing (11/17/2021 1:00 PM EDT) ABORH Type O Pos [facility] Blood 11/17/2021 1:00 PM EDT 11/17/2021 1:05 PM EDT Narrative Resulting Agency Comment Spec In Lab Eros Foss MD BLOOD BANK LAB ORDER JOSE FRANCISCO Performing Organization Address City/[facility]/ZIP Co de Phone Number [facility] [place] [address] * (ABNORMAL) Hemogram (11/17/2021 1:00 PM EDT) White Blood Cell 3.4(L) 4.0 - 9.5 x10(3)/mc L [facility] Red Blood Cell 3.74(L) 4.58 - 5.54 x10(6)/mc L [facility] Hemoglobin 11.8(L) 13.7 - 16.5 g/dL [facility] Hematocrit 34.7(L) 40.5 - 48.5 % [facility] Mean Cell Volume 92.8 82.9 - 93.1 fL [facility] Mean Cell Hemoglobin 31.6 27.5 - 32.1 pg [facility] Mean Cell Hemoglobin Concentration 34.0 32.0 - 35.7 g/dL [facility] Platelet 159 145 - 357 x10(3)/mc L [facility] RDW Standard Deviation 43.9 36.0 - 45.0 fL [facility] RDW coefficient of variation 13.0 11.4 - 13.8 % [facility] Mean Platelet Volume 9.7 7.6 - 12.9 fL [facility] NRBC% auto 0.0 % [facility] NRBC Absolute 0.000 0.000 - 0.000 x10(3)/mc L [facility] Blood 11/17/2021 1:00 PM EDT 11/17/2021 1:10 PM EDT Narrative Resulting Agency Comment Spec In Lab Ismael Wu MD HEMATOLOGY ORDERABL ES [facility] [place] [address] * SCAN DOC: IMPLANTABLE DEVICES (11/17/2021 12:00 AM EDT) Narrative 11/17/2021 12:00 AM EDT Ordered by an unspecified provider. Scanning Provider MEDIA MGR SCAN EXT O RDR/RSLT documented in this encounter Visit Diagnoses Diagnosis Status post total replacement of right hip s/p Right JIMI (Posterior), Dr. Wu - 11/17/21 Hip joint replacement by other means Bradycardia Other specified cardiac dysrhythmias Bladder dysfunction/retention with risk of stretch injury Other functional disorder of bladder Hypertension -Labile blood pressurses Unspecified essential hypertension documented in this encounter Admitting Diagnoses Diagnosis S/P total hip arthroplasty Hip joint replacement by other means documented in this encounter Administered Medications Inactive Administered Medications - up to 3 most recent administrations Medication Order MAR Action Action Date Dose Rate Site acetaminophen (Tylenol) tablet 1,000 mg 1,000 mg, Oral, ONCE, 1 dose, On Sat11/17/21 at 1315, Maximum dose of acetaminophen is 4000 mg from all sources in 24 hours. When ordered for pain, acetaminophen should be given even when other ordered pain medications are indicated. , Day of Surgery (Day of Procedure), Routine Given 11/17/2021 1:13 PM EDT 1,000 mg acetaminophen (Tylenol) tablet 1,000 mg 1,000 mg, Oral, EVERY 8 HOURS SCHEDULED, First dose on Sat11/17/21 at 1630, Until Discontinued, Maximum dose of acetaminophen is 4000 mg from all sources in 24 hours. When ordered for pain, acetaminophen should be given even when other ordered pain medications are indicated. , Routine Given 11/18/2021 2:34 PM EDT 1,000 mg Given 11/18/2021 6:45 AM EDT 1,000 mg Given 11/17/2021 10:06 PM EDT 1,000 mg aspirin EC tablet 81 mg 81 mg, Oral, DAILY, First dose on Sat11/18/21 at 0900, Until Discontinued, Routine Given 11/18/2021 9:04 AM EDT 81 mg atorvastatin (Lipitor) tablet 80 mg 80 mg, Oral, EVERY EVENING, First dose on Sat11/17/21 at 2200, Until Discontinued, Routine Given 11/17/2021 10:06 PM EDT 80 mg carvediloL (Coreg) tablet 25 mg 25 mg, Oral, 2 TIMES DAILY WITH MEALS, First dose on Sat11/18/21 at 0800, Until Discontinued, hold if SBP<105 or HR<55, Routine Given 11/18/2021 9:04 AM EDT 25 mg ceFAZolin (Ancef) 2 g vial attach to sodium chloride 0.9% 100 mL Mini-Bag Plus 2 g, Intravenous, EVERY 8 HOURS, 3 doses, First dose on Sat11/17/21 at 1630, Last dose on Sat11/18/21 at 1400, Administer over 30 Minutes, Adjust to 4 hours from intraoperative dose. * Beta-lactam based antibiotics (eg. Ampicillin, Cefazolin, Aztreonam) should be administered within 4 hours of the preceding intraoperative dose. * Vancomycin, Fluoroquinolones, Clindamycin, Gentamicin, and Metronidazole should be administered within 8 hours of the preceding intraoperative dose., Recovery (Recovery-Hospital Unit), Indication for (Active or Suspected): Prophylaxis New Bag 11/18/2021 2:34 PM EDT 2 g 200 mL/ hr New Bag 11/18/2021 5:51 AM EDT 2 g 200 mL/hr New Bag 11/17/2021 10:13 PM EDT 2 g 200 mL/hr celecoxib (CeleBREX) capsule 200 mg 200 mg, Oral, 2 TIMES DAILY, First dose on Sat11/17/21 at 2200, Until Discontinued, Routine Given 11/18/2021 9:04 AM EDT 200 mg Given 11/17/2021 10:06 PM EDT 200 mg dextrose 10% infusion 250 mL, at 1,000 mL/hr, Intravenous, EVERY 30 MIN PRN, Starting on Sat11/17/21 at 2139, Until Sat11/18/21 at 1826, For BG 50-70 mg/dL: Oral treatment preferred: If able to drink, give 120 mL Juice or Regular (not diet) soda OR If NPO, give 15 gram glucose 40% oral gel massaged into buccal mucosa OR if unconscious or uncooperative, give 25 gram (250 mL) Dextrose 10% IV over 15 minutes per protocol OR, if no IV access, 1 mg Glucagon IM. For BG less than 50 mg/dL: Oral treatment preferred: If able to drink, give 240 mL Juice or Regular (not diet) soda OR If NPO, give 30 gram glucose 40% oral gel massaged in buccal mucosa OR if unconscious or uncooperative, give 25 gram (250 mL) Dextrose 10% IV over 15 minutes per protocol OR, if no IV access, 1 mg Glucagon IM. Recheck BG in 30 minutes. May repeat juice/soda, gel, dextrose or glucagon once per episode. For persistent hypoglycemia, consider longer-acting treatment for the duration of the active insulin. folic acid (Folvite) tablet 1,000 mcg 1,000 mcg, Oral, DAILY, First dose on 11/18/21 at 0900, Until Discontinued, Routine Given 11/18/2021 9:04 AM EDT 1,000 mcg gabapentin (Neurontin) capsule 300 mg 300 mg, Oral, NIGHTLY, First dose on Sat11/19/21 at 2100, Until Discontinued, Routine gabapentin (Neurontin) capsule 600 mg 600 mg, Oral, NIGHTLY, 2 doses, First dose on Sat11/17/21 at 2100, Last dose on Sat11/18/21 at 2100, Routine Given 11/17/2021 10:06 PM EDT 600 mg glimepiride (Amaryl) tablet 1 mg 1 mg, Oral, DAILY WITH BREAKFAST, First dose on Sat11/18/21 at 0800, Until Discontinued, Consider holding dose if patient is not eating., Routine Given 11/18/2021 9:03 AM EDT 1 mg glucagon (Glucagen) (1 mg/mL) injection solution 1 mg 1 mg, Intramuscular, EVERY 30 MIN PRN, Starting on Sat11/17/21 at 2139, Until 11/18/21 at 1826, Low blood sugar, For BG 50-70 mg/dL: Oral treatment preferred: If able to drink, give 120 mL Juice or Regular (not diet) soda OR If NPO, give 15 gram glucose 40% oral gel massaged into buccal mucosa OR if unconscious or uncooperative, give 25 gram (250 mL) Dextrose 10% IV over 15 minutes per protocol OR, if no IV access, 1 mg Glucagon IM. For BG less than 50 mg/dL: Oral treatment preferred: If able to drink, give 240 mL Juice or Regular (not diet) soda OR If NPO, give 30 gram glucose 40% oral gel massaged in buccal mucosa OR if unconscious or uncooperative, give 25 gram (250 mL) Dextrose 10% IV over 15 minutes per protocol OR, if no IV access, 1 mg Glucagon IM. Recheck BG in 30 minutes. May repeat juice/soda, gel, dextrose or glucagon once per episode. For persistent hypoglycemia, consider longer-acting treatment for the duration of the active insulin., Routine glucose (Glutose) 40% oral geL 15-30 g of glucose, Buccal, EVERY 30 MIN PRN, Starting on Sat11/17/21 at 2139, Until 11/18/21 at 1826, Low blood sugar, For BG 50-70 mg/dL: Oral treatment preferred: If able to drink, give 120 mL Juice or Regular (not diet) soda OR If NPO, give 15 gram glucose 40% oral gel massaged into buccal mucosa OR if unconscious or uncooperative, give 25 gram (250 mL) Dextrose 10% IV over 15 minutes per protocol OR, if no IV access, 1 mg Glucagon IM. For BG less than 50 mg/dL: Oral treatment preferred: If able to drink, give 240 mL Juice or Regular (not diet) soda OR If NPO, give 30 gram glucose 40% oral gel massaged in buccal mucosa OR if unconscious or uncooperative, give 25 gram (250 mL) Dextrose 10% IV over 15 minutes per protocol OR, if no IV access, 1 mg Glucagon IM. Recheck BG in 30 minutes. May repeat juice/soda, gel, dextrose or glucagon once per episode. For persistent hypoglycemia, consider longer-acting treatment for the duration of the active insulin. 1 tube of Glutose-15 contains 15 grams of glucose (net weight of tube = 37.5 grams.), Routine hydrALAZINE (Apresoline) (20 mg/mL) injection 5 mg 5 mg, Intravenous, ONCE, 1 dose, On Sat11/17/21 at 2315 Given 11/17/2021 10:46 PM EDT 5 mg insulin lispro (HumaLOG;Admelog) (100 unit/mL) subcutaneous injection vial 0-8 Units 0-8 Units, Subcutaneous, 3 TIMES DAILY WITH MEALS, First dose on Sat11/18/21 at 0800, Until Discontinued, [employer] Give 1 unit for every 10 grams carbohydrate. Hold if not eating or if BG less than 70 mg/dL., Routine Given 11/18/2021 9:03 AM EDT 2 Units insulin lispro (HumaLOG;Admelog) (100 unit/mL) subcutaneous injection vial 1-4 Units 1-4 Units, Subcutaneous, EVERY 4 HOURS SCHEDULED, First dose on Sat11/17/21 at 2015, Until Discontinued, CORRECTION BOLUS [1-4 Units] Sensitive Sliding Scale (BG in mg/dL): Correction factor 40 (1 unit of insulin is expected to drop the glucose 40 mg/dL) BG 160 - 200 Give 1 unit BG 201 - 240 Give 2 units BG 241 - 280 Give 3 units BG greater than 280, give 4 units and recheck BG in 2 hours. - If recheck BG is LESS than 280, give no insulin and resume schedule - If recheck BG is GREATER than 280, give 4 units and repeat BG in 2 hours (no more than 3 times) & call for new insulin orders. DO NOT hold if NPO, unless specifically directed to do so by written order. Per Blood Glucose Monitoring Policy, re-check a BG of > 240 mg/dL in 2 hours., Routine Given 11/18/2021 12:05 PM EDT 1 Units Righ t Arm Given 11/18/2021 3:22 AM EDT 2 Units Given 11/18/2021 12:17 AM EDT 2 Units isosorbide mononitrate CR (Imdur) tablet 30 mg 30 mg, Oral, NIGHTLY, First dose on Sat11/17/21 at 2200, Until Discontinued, DO NOT CRUSH OR OPEN, Routine Given 11/17/2021 10:14 PM EDT 30 mg ketorolac (Toradol) (30 mg/mL) injection 15 mg 15 mg, Intravenous, EVERY 6 HOURS PRN, Starting on Sat11/17/21 at 2139, Until 11/18/21 at 1826, Pain, Routine Given 11/18/2021 6:49 AM EDT 15 mg Given 11/18/2021 12:22 AM EDT 15 mg lactated ringers infusion 1,000 mL, at 100 mL/hr, Intravenous, CONTINUOUS, Starting on Sat11/17/21 at 1630, Until 11/18/21 at 1826, Recovery (Recovery-Hospital Unit) New Bag 11/18/2021 12:06 PM EDT 1,000 mLs 100 m L/hr New Bag 11/17/2021 7:48 PM EDT 1,000 mLs 100 mL/hr lisinopriL (Zestril) tablet 40 mg 40 mg, Oral, DAILY, First dose on 11/18/21 at 0900, Until Discontinued, Routine Given 11/18/2021 9:04 AM EDT 40 mg ondansetron (pf) (Zofran) (2 mg/mL) injection 4 mg 4 mg, Intravenous, EVERY 8 HOURS PRN, Starting on Sat11/17/21 at 2139, Until 11/18/21 at 1826, Nausea, May repeat times one in 30 minutes if ineffective. If multiple antiemetics are ordered, use ondansetron first, Recovery (Recovery-Hospital Unit) ondansetron (Zofran) tablet 4 mg 4 mg, Oral, EVERY 8 HOURS PRN, Starting on Sat11/17/21 at 2139, Until 11/18/21 at 1826, Nausea, Vomiting, If multiple antiemetics are ordered, use ondansetron first. PO Preferred. If patient unable to take PO, may give IV if ordered. May repeat times one in 45 minutes if ineffective., Recovery (Recovery-Hospital Unit), Routine oxyCODONE (Roxicodone) tablet 10 mg 10 mg, Oral, EVERY 4 HOURS PRN, Starting on Sat11/17/21 at 1906, Until 11/18/21 at 1826, Pain, moderate pain (4-6), May give additional 5 mg in 30 minutes once if pain not relieved., Routine Given 11/18/2021 10:26 AM EDT 10 mg Given 11/18/2021 1:52 AM EDT 10 mg oxyCODONE (Roxicodone) tablet 15 mg 15 mg, Oral, EVERY 4 HOURS PRN, Starting on Sat11/17/21 at 1906, Until 11/18/21 at 1826, Pain, severe pain or opiate tolerant patient (7-10), Do not start patient with 15 mg dose. Do not give 15 mg if patient is opiate niave., Routine oxyCODONE (Roxicodone) tablet 5 mg 5 mg, Oral, EVERY 4 HOURS PRN, Starting on Sat11/17/21 at 1906, Until 11/18/21 at 1826, Pain, mild pain (1-3), May give additional 5 mg in 30 minutes once if pain not relieved., Routine Given 11/17/2021 7:13 PM EDT 5 mg pantoprazole EC (Protonix) tablet 20 mg 20 mg, Oral, DAILY, First dose on 11/18/21 at 0900, Until Discontinued, DO NOT CRUSH OR OPEN Given 11/18/2021 9:05 AM EDT 20 mg polyethylene glycoL (Miralax) packet 17 g 17 g, Oral, 2 TIMES DAILY, First dose on Sat11/17/21 at 2200, Until Discontinued, Routine Given 11/18/2021 9:03 AM EDT 17 g Given 11/17/2021 10:05 PM EDT 17 g senna-docusate (Pericolace) 8.6-50 mg per tablet 2 tablet 2 tablet, Oral, 2 TIMES DAILY, First dose on Sat11/17/21 at 2200, Until Discontinued, Routine Given 11/18/2021 9:04 AM EDT 2 tablets Given 11/17/2021 10:05 PM EDT 2 tablets sodium chloride 0.9 % (flush) (BD PosiFlush Normal Saline 0.9) flush 5 mL 5 mL, Intravenous, 2 TIMES DAILY, First dose on Sat11/17/21 at 2200, Until Discontinued, Recovery (Recovery-Hospital Unit), Routine Given 11/18/2021 9:10 AM EDT 5 mLs Given 11/17/2021 10:15 PM EDT 5 mLs sodium chloride 0.9% 500 mL IV bolus Intravenous, ONCE, 1 dose, On 11/18/21 at 1315 New Bag 11/18/2021 12:26 PM EDT 100 mL/hr tamsulosin (Flomax) capsule 0.4 mg 0.4 mg, Oral, NIGHTLY, First dose on Sat11/17/21 at 2200, Until Discontinued, DO NOT CRUSH OR OPEN, Routine Given 11/17/2021 10:06 PM EDT 0.4 mg timoloL (Timoptic) 0.5 % ophthalmic solution 1 drop 1 drop, Both Eyes, DAILY, First dose on 11/18/21 at 0900, Until Discontinued, Routine Given 11/18/2021 9:03 AM EDT 1 drop documented in this encounter Active and Recently Administered Medications Times are shown in EDT. Scheduled Medication Order 11/16/2021 11/17/2021 11/18/2021 acetaminophen (Tylenol) tablet 1,000 mg (COMPLETED) 1,000 mg, Oral, ONCE, 1 dose, On Sat11/17/21 at 1315, Maximum dose of acetaminophen is 4000 mg from all sources in 24 hours. When ordered for pain, acetaminophen should be given even when other ordered pain medications are indicated. , Day of Surgery (Day of Procedure), Routine 1313 (Given - Provider: Gab Amezcua RN) acetaminophen (Tylenol) tablet 1,000 mg 1,000 mg, Oral, EVERY 8 HOURS SCHEDULED, First dose on Sat11/17/21 at 1630, Until Discontinued, Maximum dose of acetaminophen is 4000 mg from all sources in 24 hours. When ordered for pain, acetaminophen should be given even when other ordered pain medications are indicated. , Routine 1630 (Not Given - Provider: Rosalee Hummel RN - Reason: See comment - Comment: Given in Same Day at 1300)2206 (Given - Provider: Floridalma Barron, AYE) 0645 (Given - Provider: Floridalma Barron, AYE)1434 (Given - Provider: Mariana Villafuerte, AYE) amLODIPine (Norvasc) tablet 5 mg 5 mg, Oral, DAILY, First dose on Sat11/18/21 at 0900, Until Discontinued, hold if SBP<120, Routine 0905 (Not Given - Provider: Mariana Villafuerte, AYE - Reason: Patient/family refused - Comment: bp low) aspirin EC tablet 81 mg 81 mg, Oral, DAILY, First dose on Sat11/18/21 at 0900, Until Discontinued, Routine 09 (Given - Provid er: Mariana Villafuerte, AYE) atorvastatin (Lipitor) tablet 80 mg 80 mg, Oral, EVERY EVENING, First dose on Sat11/17/21 at 2200, Until Discontinued, Routine 2205 (Given - Provider: Floridalma Barron RN) carvediloL (Coreg) tablet 25 mg 25 mg, Oral, 2 TIMES DAILY WITH MEALS, First dose on Sat11/18/21 at 0800, Until Discontinued, hold if SBP<105 or HR<55, Routine 09 (Given - Provid er: Mariana Villafuerte RN) ceFAZolin (Ancef) 2 g vial attach to sodium chloride 0.9% 100 mL Mini-Bag Plus (COMPLETED) 2 g, Intravenous, EVERY 8 HOURS, 3 doses, First dose on Sat11/17/21 at 1630, Last dose on Sat11/18/21 at 1400, Administer over 30 Minutes, Adjust to 4 hours from intraoperative dose. * Beta-lactam based antibiotics (eg. Ampicillin, Cefazolin, Aztreonam) should be administered within 4 hours of the preceding intraoperative dose. * Vancomycin, Fluoroquinolones, Clindamycin, Gentamicin, and Metronidazole should be administered within 8 hours of the preceding intraoperative dose., Recovery (Recovery-Hospital Unit), Indication for (Active or Suspected): Prophylaxis 2213 (New Bag - Provider: Floridalma Barron RN)2243 (Stopped - Provider: Floridalma Barron RN) 0551 (New Bag - Provider: Floridalma Barron RN)0621 (Stopped - Provider: Floridalma Barron RN)1434 (New Bag - Provider: Mariana Villafuerte RN)1504 (Due: Stopped - Provider: Mariana Villafuerte RN) celecoxib (CeleBREX) capsule 200 mg 200 mg, Oral, 2 TIMES DAILY, First dose on Sat11/17/21 at 2200, Until Discontinued, Routine 2205 (Given - Provider: Floridalma Barron RN) 0904 (Given - Provider: Mariana Villafuerte RN) folic acid (Folvite) tablet 1,000 mcg 1,000 mcg, Oral, DAILY, First dose on Sat11/18/21 at 0900, Until Discontinued, Routine 09 (Given - Provid er: Mariana Villafuerte RN) gabapentin (Neurontin) capsule 300 mg(Linked Group 1) 300 mg, Oral, NIGHTLY, First dose on Sat11/19/21 at 2100, Until Discontinued, Routine gabapentin (Neurontin) capsule 600 mg(Linked Group 1) 600 mg, Oral, NIGHTLY, 2 doses, First dose on Sat11/17/21 at 2100, Last dose on Sat11/18/21 at 2100, Routine 2205 (Given - Provider: Floridalma Barron RN) glimepiride (Amaryl) tablet 1 mg 1 mg, Oral, DAILY WITH BREAKFAST, First dose on Sat11/18/21 at 0800, Until Discontinued, Consider holding dose if patient is not eating., Routine 902 (Given - Provid er: Mariana Villafuerte RN) hydrALAZINE (Apresoline) (20 mg/mL) injection 5 mg (COMPLETED) 5 mg, Intravenous, ONCE, 1 dose, On Sat11/17/21 at 2315 2246 (Given - Provider: Floridalma Barron RN) insulin lispro (HumaLOG;Admelog) (100 unit/mL) subcutaneous injection vial 0-8 Units 0-8 Units, Subcutaneous, 3 TIMES DAILY WITH MEALS, First dose on Sat11/18/21 at 0800, Until Discontinued, [employer] Give 1 unit for every 10 grams carbohydrate. Hold if not eating or if BG less than 70 mg/dL., Routine 902 (Given - Provid er: Mariana Villafuerte RN)1200 (Not Given - Provider: Mariana Villafuerte RN - Reason: Order parameters not met) insulin lispro (HumaLOG;Admelog) (100 unit/mL) subcutaneous injection vial 1-4 Units(Linked Group 2) 1-4 Units, Subcutaneous, EVERY 4 HOURS SCHEDULED, First dose on Sat11/17/21 at 2015, Until Discontinued, CORRECTION BOLUS [1-4 Units] Sensitive Sliding Scale (BG in mg/dL): Correction factor 40 (1 unit of insulin is expected to drop the glucose 40 mg/dL) BG 160 - 200 Give 1 unit BG 201 - 240 Give 2 units BG 241 - 280 Give 3 units BG greater than 280, give 4 units and recheck BG in 2 hours. - If recheck BG is LESS than 280, give no insulin and resume schedule - If recheck BG is GREATER than 280, give 4 units and repeat BG in 2 hours (no more than 3 times) & call for new insulin orders. DO NOT hold if NPO, unless specifically directed to do so by written order. Per Blood Glucose Monitoring Policy, re-check a BG of > 240 mg/dL in 2 hours., Routine 1950 (Given - Provider: Rosalee Hummel RN - Comment: BS 216) 0017 (Given - Provider: Floridalma Barron RN)0322 (Given - Provider: Floridalma Barron RN)0800 (Not Given - Provider: Mariana Villafuerte RN - Reason: Order parameters not met)1205 (Given - Provider: Mariana Villafuerte RN) isosorbide mononitrate CR (Imdur) tablet 30 mg 30 mg, Oral, NIGHTLY, First dose on Sat11/17/21 at 2200, Until Discontinued, DO NOT CRUSH OR OPEN, Routine 2213 (Given - Provider: Floridalma Barron RN) lisinopriL (Zestril) tablet 40 mg 40 mg, Oral, DAILY, First dose on 11/18/21 at 0900, Until Discontinued, Routine 903 (Given - Provid er: Mariana Villafuerte RN) pantoprazole EC (Protonix) tablet 20 mg 20 mg, Oral, DAILY, First dose on 11/18/21 at 0900, Until Discontinued, DO NOT CRUSH OR OPEN 904 (Given - Provid er: Mariana Villafuerte RN) polyethylene glycoL (Miralax) packet 17 g 17 g, Oral, 2 TIMES DAILY, First dose on Sat11/17/21 at 2200, Until Discontinued, Routine 2204 (Given - Provider: Floridalma Barron RN) 09 (Given - Provider: Mariana Villafuerte RN) rivaroxaban (Xarelto) tablet 10 mg 10 mg, Oral, EVERY EVENING, First dose on 11/18/21 at 2145, Until Discontinued, Start 24 hours after arriving at PACU, Routine, Restricted anticoagulant, choose the most appropriate response: Approved indication of hip/knee replacement DVT prophylaxis senna-docusate (Pericolace) 8.6-50 mg per tablet 2 tablet 2 tablet, Oral, 2 TIMES DAILY, First dose on Sat11/17/21 at 2200, Until Discontinued, Routine 220 (Given - Provider: Floridalma Barron RN) 0904 (Given - Provider: Mariana Villafuerte RN) sodium chloride 0.9 % (flush) (BD PosiFlush Normal Saline 0.9) flush 5 mL 5 mL, Intravenous, 2 TIMES DAILY, First dose on Sat11/17/21 at 2200, Until Discontinued, Recovery (Recovery-Hospital Unit), Routine 221 (Given - Provider: Floridalma Barron RN) 0910 (Given - Provider: Mariana Villafuerte RN) sodium chloride 0.9% 500 mL IV bolus (COMPLETED) Intravenous, ONCE, 1 dose, On 11/18/21 at 1315 1226 (New Bag - Provider: Mariana Villafuerte RN) tamsulosin (Flomax) capsule 0.4 mg 0.4 mg, Oral, NIGHTLY, First dose on Sat11/17/21 at 2200, Until Discontinued, DO NOT CRUSH OR OPEN, Routine 2205 (Given - Provider: Floridalma Barron RN) timoloL (Timoptic) 0.5 % ophthalmic solution 1 drop 1 drop, Both Eyes, DAILY, First dose on 11/18/21 at 0900, Until Discontinued, Routine 0903 (Given - Provid er: Mariana Villafuerte RN) Continuous Medication Order 11/16/2021 11/17/2021 11/18/2021 lactated ringers infusion 1,000 mL, at 100 mL/hr, Intravenous, CONTINUOUS, Starting on Sat11/17/21 at 1630, Until 11/18/21 at 1826, Recovery (Recovery-Hospital Unit) 1948 (New Bag - Provider: Rosalee Hummel RN) 1206 (New Bag - Provider: Mariana Villafuerte RN)1826 (Due: Stopped) PRN Medication Order 11/16/2021 11/17/2021 11/18/2021 bisacodyL (Dulcolax) suppository 10 mg 10 mg, Rectal, DAILY PRN, Starting on Sat11/17/21 at 2139, Until 11/18/21 at 1826, Constipation, Administer if needed per patient's routine or if no bowel movement within 48 hours to achieve: (1) One bowel movement every 48 hours, AND (2) without straining. If multiple PRN bowel medications ordered, start with lactulose, then oral bisacodyl, then bisacodyl suppository. Multiple medications may be given concomitantly for constipation., Routine bisacodyl EC (Dulcolax) tablet 10 mg 10 mg, Oral, 2 TIMES DAILY PRN, Starting on Sat11/17/21 at 2139, Until 11/18/21 at 1826, Constipation, DO NOT CRUSH OR OPEN Administer if needed per patient's routine or if no bowel movement within 48 hours to achieve: (1) One bowel movement every 48 hours, AND (2) without straining. If multiple PRN bowel medications ordered, start with lactulose, then oral bisacodyl, then bisacodyl suppository. Multiple medications may be given concomitantly for constipation., Routine BUpivacaine (Sensorcaine) (2.5 mg/mL) 0.25% injection (CANCELED) ONCE PRN, Starting on Sat11/17/21 at 1406, Until 11/18/21 at 1826, Intra-Operative (Intra-Procedure), Routine 1406 (Given - Provider: Ismael Wu MD) dextrose 10% infusion(Linked Group 3) 250 mL, at 1,000 mL/hr, Intravenous, EVERY 30 MIN PRN, Starting on Sat11/17/21 at 2139, Until 11/18/21 at 1826, For BG 50-70 mg/dL: Oral treatment preferred: If able to drink, give 120 mL Juice or Regular (not diet) soda OR If NPO, give 15 gram glucose 40% oral gel massaged into buccal mucosa OR if unconscious or uncooperative, give 25 gram (250 mL) Dextrose 10% IV over 15 minutes per protocol OR, if no IV access, 1 mg Glucagon IM. For BG less than 50 mg/dL: Oral treatment preferred: If able to drink, give 240 mL Juice or Regular (not diet) soda OR If NPO, give 30 gram glucose 40% oral gel massaged in buccal mucosa OR if unconscious or uncooperative, give 25 gram (250 mL) Dextrose 10% IV over 15 minutes per protocol OR, if no IV access, 1 mg Glucagon IM. Recheck BG in 30 minutes. May repeat juice/soda, gel, dextrose or glucagon once per episode. For persistent hypoglycemia, consider longer-acting treatment for the duration of the active insulin. glucagon (Glucagen) (1 mg/mL) injection solution 1 mg(Linked Group 3) 1 mg, Intramuscular, EVERY 30 MIN PRN, Starting on Sat11/17/21 at 2139, Until 11/18/21 at 1826, Low blood sugar, For BG 50-70 mg/dL: Oral treatment preferred: If able to drink, give 120 mL Juice or Regular (not diet) soda OR If NPO, give 15 gram glucose 40% oral gel massaged into buccal mucosa OR if unconscious or uncooperative, give 25 gram (250 mL) Dextrose 10% IV over 15 minutes per protocol OR, if no IV access, 1 mg Glucagon IM. For BG less than 50 mg/dL: Oral treatment preferred: If able to drink, give 240 mL Juice or Regular (not diet) soda OR If NPO, give 30 gram glucose 40% oral gel massaged in buccal mucosa OR if unconscious or uncooperative, give 25 gram (250 mL) Dextrose 10% IV over 15 minutes per protocol OR, if no IV access, 1 mg Glucagon IM. Recheck BG in 30 minutes. May repeat juice/soda, gel, dextrose or glucagon once per episode. For persistent hypoglycemia, consider longer-acting treatment for the duration of the active insulin., Routine glucose (Glutose) 40% oral geL(Linked Group 3) 15-30 g of glucose, Buccal, EVERY 30 MIN PRN, Starting on Sat11/17/21 at 2139, Until 11/18/21 at 1826, Low blood sugar, For BG 50-70 mg/dL: Oral treatment preferred: If able to drink, give 120 mL Juice or Regular (not diet) soda OR If NPO, give 15 gram glucose 40% oral gel massaged into buccal mucosa OR if unconscious or uncooperative, give 25 gram (250 mL) Dextrose 10% IV over 15 minutes per protocol OR, if no IV access, 1 mg Glucagon IM. For BG less than 50 mg/dL: Oral treatment preferred: If able to drink, give 240 mL Juice or Regular (not diet) soda OR If NPO, give 30 gram glucose 40% oral gel massaged in buccal mucosa OR if unconscious or uncooperative, give 25 gram (250 mL) Dextrose 10% IV over 15 minutes per protocol OR, if no IV access, 1 mg Glucagon IM. Recheck BG in 30 minutes. May repeat juice/soda, gel, dextrose or glucagon once per episode. For persistent hypoglycemia, consider longer-acting treatment for the duration of the active insulin. 1 tube of Glutose-15 contains 15 grams of glucose (net weight of tube = 37.5 grams.), Routine ketorolac (Toradol) (30 mg/mL) injection 15 mg 15 mg, Intravenous, EVERY 6 HOURS PRN, Starting on Sat11/17/21 at 2139, Until 11/18/21 at 1826, Pain, Routine 0022 (Given - Provid er: Floridalma aBrron RN)0649 (Given - Provider: Floridalma Barron RN) lidocaine (Xylocaine) 1% (10 mg/mL) injection 3 mg 3 mg (0.3 mL), Subcutaneous, ONCE PRN, 1 dose, Starting on Sat11/17/21 at 2139, Until 11/18/21 at 1826, for discomfort with PIV insertion, Recovery (Recovery-Hospital Unit), Routine ondansetron (pf) (Zofran) (2 mg/mL) injection 4 mg(Linked Group 4) 4 mg, Intravenous, EVERY 8 HOURS PRN, Starting on Sat11/17/21 at 2139, Until 11/18/21 at 1826, Nausea, May repeat times one in 30 minutes if ineffective. If multiple antiemetics are ordered, use ondansetron first, Recovery (Recovery-Hospital Unit) ondansetron (Zofran) tablet 4 mg(Linked Group 4) 4 mg, Oral, EVERY 8 HOURS PRN, Starting on Sat11/17/21 at 2139, Until 11/18/21 at 1826, Nausea, Vomiting, If multiple antiemetics are ordered, use ondansetron first. PO Preferred. If patient unable to take PO, may give IV if ordered. May repeat times one in 45 minutes if ineffective., Recovery (Recovery-Hospital Unit), Routine oxyCODONE (Roxicodone) tablet 10 mg(Linked Group 5) 10 mg, Oral, EVERY 4 HOURS PRN, Starting on Sat11/17/21 at 1906, Until 11/18/21 at 1826, Pain, moderate pain (4-6), May give additional 5 mg in 30 minutes once if pain not relieved., Routine 1912 (See Alternative - Provider: Janki Mathis RN) 015 (Given - Provider: Floridalma Barron RN)1026 (Given - Provider: Mariana Villafuerte, AYE) oxyCODONE (Roxicodone) tablet 15 mg(Linked Group 5) 15 mg, Oral, EVERY 4 HOURS PRN, Starting on Sat11/17/21 at 1906, Until 11/18/21 at 1826, Pain, severe pain or opiate tolerant patient (7-10), Do not start patient with 15 mg dose. Do not give 15 mg if patient is opiate niave., Routine 1912 (See Alternative - Provider: Janki Mathis RN) 151 (See Alternative - Provider: Floridalma Barron, AYE)1026 (See Alternative - Provider: Mariana Villafuerte, AYE) oxyCODONE (Roxicodone) tablet 5 mg(Linked Group 5) 5 mg, Oral, EVERY 4 HOURS PRN, Starting on Sat11/17/21 at 1906, Until 11/18/21 at 1826, Pain, mild pain (1-3), May give additional 5 mg in 30 minutes once if pain not relieved., Routine 1912 (Given - Provider: Janki Mathis RN) 151 (See Alternative - Provider: Floridalma Barron, AYE)1026 (See Alternative - Provider: Mariana Villafuerte, AYE) povidone-iodine (Betadine Ophthalmic Prep) 5 % ophthalmic solution (CANCELED) ONCE PRN, Starting on Sat11/17/21 at 1407, Until 11/18/21 at 1826, Intra-Operative (Intra-Procedure), Routine 1407 (Given - Provider: Ismael Wu MD - Comment: added to 500ml NACL for irrigation) [id number]-[id number] oNIDine-ketorolac (LISANDRA) (2.46 mg-0.005 mg-0.0008 mg-0.3 mg/mL) cb-articular inj soln in sodium chloride (CANCELED) ONCE PRN, Starting on Sat11/17/21 at 1602, Until Sat11/18/21 at 1826, Intra-Operative (Intra-Procedure), Routine 1602 (Given - Provider: Ismael Wu MD) sodium chloride 0.9 % (flush) (BD PosiFlush Normal Saline 0.9) flush 5-20 mL 5-20 mL, Intravenous, EVERY 1 MIN PRN, Starting on Sat11/17/21 at 2139, Until Sat11/18/21 at 1826, flush, Flush pertains to all indwelling lines. Flush per protocol found in the job aid using the link provided on this medication record., Recovery (Recovery-Hospital Unit), Routine Linked Groups Order Group 1: gabapentin (Neurontin) capsule 600 mgJump to med 600 mg, Oral, NIGHTLY, 2 doses, First dose on Sat11/17/21 at 2100, Last dose on Sat11/18/21 at 2100, Routine Followed by gabapentin (Neurontin) capsule 300 mgJump to med 300 mg, Oral, NIGHTLY, First dose on Sat11/19/21 at 2100, Until Discontinued, Routine Group 2: POCT Fingerstick Glucose (CANCELED) Routine, EVERY 4 HOURS, First occurrence on Sat11/17/21 at 1950, Until Specified, Consider choosing EVERY 4 HOURS as frequency for: - Type 1 Diabetes - At least 24 hours after coming off an insulin drip - At least 24 hours after admission for DKA - Hypoglycemia unawareness - Patients who are otherwise unstable Select the same frequency for the correction bolus insulin order And insulin lispro (HumaLOG;Admelog) (100 unit/mL) subcutaneous injection vial 1-4 UnitsJump to med 1-4 Units, Subcutaneous, EVERY 4 HOURS SCHEDULED, First dose on Sat11/17/21 at 2015, Until Discontinued, CORRECTION BOLUS [1-4 Units] Sensitive Sliding Scale (BG in mg/dL): Correction factor 40 (1 unit of insulin is expected to drop the glucose 40 mg/dL) BG 160 - 200 Give 1 unit BG 201 - 240 Give 2 units BG 241 - 280 Give 3 units BG greater than 280, give 4 units and recheck BG in 2 hours. - If recheck BG is LESS than 280, give no insulin and resume schedule - If recheck BG is GREATER than 280, give 4 units and repeat BG in 2 hours (no more than 3 times) & call for new insulin orders. DO NOT hold if NPO, unless specifically directed to do so by written order. Per Blood Glucose Monitoring Policy, re-check a BG of > 240 mg/dL in 2 hours., Routine Group 3: glucose (Glutose) 40% oral geLJump to med 15-30 g of glucose, Buccal, EVERY 30 MIN PRN, Starting on Sat11/17/21 at 2139, Until 11/18/21 at 1826, Low blood sugar, For BG 50-70 mg/dL: Oral treatment preferred: If able to drink, give 120 mL Juice or Regular (not diet) soda OR If NPO, give 15 gram glucose 40% oral gel massaged into buccal mucosa OR if unconscious or uncooperative, give 25 gram (250 mL) Dextrose 10% IV over 15 minutes per protocol OR, if no IV access, 1 mg Glucagon IM. For BG less than 50 mg/dL: Oral treatment preferred: If able to drink, give 240 mL Juice or Regular (not diet) soda OR If NPO, give 30 gram glucose 40% oral gel massaged in buccal mucosa OR if unconscious or uncooperative, give 25 gram (250 mL) Dextrose 10% IV over 15 minutes per protocol OR, if no IV access, 1 mg Glucagon IM. Recheck BG in 30 minutes. May repeat juice/soda, gel, dextrose or glucagon once per episode. For persistent hypoglycemia, consider longer-acting treatment for the duration of the active insulin. 1 tube of Glutose-15 contains 15 grams of glucose (net weight of tube = 37.5 grams.), Routine Or dextrose 10% infusionJump to med 250 mL, at 1,000 mL/hr, Intravenous, EVERY 30 MIN PRN, Starting on Sat11/17/21 at 2139, Until 11/18/21 at 1826, For BG 50-70 mg/dL: Oral treatment preferred: If able to drink, give 120 mL Juice or Regular (not diet) soda OR If NPO, give 15 gram glucose 40% oral gel massaged into buccal mucosa OR if unconscious or uncooperative, give 25 gram (250 mL) Dextrose 10% IV over 15 minutes per protocol OR, if no IV access, 1 mg Glucagon IM. For BG less than 50 mg/dL: Oral treatment preferred: If able to drink, give 240 mL Juice or Regular (not diet) soda OR If NPO, give 30 gram glucose 40% oral gel massaged in buccal mucosa OR if unconscious or uncooperative, give 25 gram (250 mL) Dextrose 10% IV over 15 minutes per protocol OR, if no IV access, 1 mg Glucagon IM. Recheck BG in 30 minutes. May repeat juice/soda, gel, dextrose or glucagon once per episode. For persistent hypoglycemia, consider longer-acting treatment for the duration of the active insulin. Or glucagon (Glucagen) (1 mg/mL) injection solution 1 mgJump to med 1 mg, Intramuscular, EVERY 30 MIN PRN, Starting on Sat11/17/21 at 2139, Until 11/18/21 at 1826, Low blood sugar, For BG 50-70 mg/dL: Oral treatment preferred: If able to drink, give 120 mL Juice or Regular (not diet) soda OR If NPO, give 15 gram glucose 40% oral gel massaged into buccal mucosa OR if unconscious or uncooperative, give 25 gram (250 mL) Dextrose 10% IV over 15 minutes per protocol OR, if no IV access, 1 mg Glucagon IM. For BG less than 50 mg/dL: Oral treatment preferred: If able to drink, give 240 mL Juice or Regular (not diet) soda OR If NPO, give 30 gram glucose 40% oral gel massaged in buccal mucosa OR if unconscious or uncooperative, give 25 gram (250 mL) Dextrose 10% IV over 15 minutes per protocol OR, if no IV access, 1 mg Glucagon IM. Recheck BG in 30 minutes. May repeat juice/soda, gel, dextrose or glucagon once per episode. For persistent hypoglycemia, consider longer-acting treatment for the duration of the active insulin., Routine Group 4: ondansetron (Zofran) tablet 4 mgJump to med 4 mg, Oral, EVERY 8 HOURS PRN, Starting on Sat11/17/21 at 2139, Until 11/18/21 at 1826, Nausea, Vomiting, If multiple antiemetics are ordered, use ondansetron first. PO Preferred. If patient unable to take PO, may give IV if ordered. May repeat times one in 45 minutes if ineffective., Recovery (Recovery-Hospital Unit), Routine Or ondansetron (pf) (Zofran) (2 mg/mL) injection 4 mgJump to med 4 mg, Intravenous, EVERY 8 HOURS PRN, Starting on 11/17/21 at 2139, Until 11/18/21 at 1826, Nausea, May repeat times one in 30 minutes if ineffective. If multiple antiemetics are ordered, use ondansetron first, Recovery (Recovery-Hospital Unit) Group 5: oxyCODONE (Roxicodone) tablet 5 mgJump to med 5 mg, Oral, EVERY 4 HOURS PRN, Starting on 11/17/21 at 1906, Until 11/18/21 at 1826, Pain, mild pain (1-3), May give additional 5 mg in 30 minutes once if pain not relieved., Routine Or oxyCODONE (Roxicodone) tablet 10 mgJump to med 10 mg, Oral, EVERY 4 HOURS PRN, Starting on 11/17/21 at 1906, Until 11/18/21 at 1826, Pain, moderate pain (4-6), May give additional 5 mg in 30 minutes once if pain not relieved., Routine Or oxyCODONE (Roxicodone) tablet 15 mgJump to med 15 mg, Oral, EVERY 4 HOURS PRN, Starting on Sat11/17/21 at 1906, Until 11/18/21 at 1826, Pain, severe pain or opiate tolerant patient (7-10), Do not start patient with 15 mg dose. Do not give 15 mg if patient is opiate niave., Routine documented in this encounter Care Teams Senior Marketing Associate Relationship Specialty Start Date End Date Alo Carey DO [address] [place] [address] [place] [phone] PCP - General Internal Medicine 08/31/20 07/03/23 documented as of this encounter
--- OUTSIDE RECORDS SUMMARY | 2023-10-06 00:39 | XMS_ITS | Encounter Summary ---
[place] [address] Care Team Providers Care Family Medicine Resident Name Role Phone Alo Carey DO Primary Care Provider [phone] Reason for Visit * Reason Comments Medication Refill Encounter Details Date Type Department Care Team (Late Contact Info) Description 04/10/2022 Refill Radiation Oncology at [address] [phone] Bigg Peters MD [address] [place] [address] [place] [address] Malignant neoplasm of prostate [...] AM EDT Tech [place] [phone] Giacomo Queen 10/11/2023 11:15 AM EDT Office Visit [place] [phone] Basim Barr MD [facility] [place] [address] 10/18/2023 9:00 AM EDT Office Visit Hematology/Oncology at [address] [phone] 58 Cl Hess MD [facility] [place] [address] Yessi Renee, [address] HEMATOLOGY AND [place]COLOGY [place], [place] [address] [phone] 10/18/2023 9:30 AM EDT Infusion Hematology Oncology at [address] [phone] 10/24/2023 9:30 AM EDT Scheduled View Only Radiation Oncology at [address] [phone] Rad Nurse, [facility] 10/24/2023 10:00 AM EDT Office Visit Radiation Oncology at [address] [phone] Bigg Peters MD [address] [place] [address] DR RADIATION ONCOLOGY [place], [place] [phone] 11/01/2023 9:00 AM EDT Office Visit Hematology/Oncology at [address] [phone] Cl Hess MD [facility] [place] [address] Yessi Renee [address] HEMATOLOGY AND [place]OGY [place], [place] [address] [phone] 11/01/2023 9:30 AM EDT Infusion Hematology Oncology at [address] [phone] 12/24/2023 1:00 PM EDT TH Visit (TeleHealth) Radiation Oncology at [address] [phone] Ping Moore PA [facility] DR [place] [address] documented as of this encounter Visit Diagnoses Diagnosis Malignant neoplasm of prostate documented in this encounter Care Teams Family Medicine Resident Relationship Specialty Start Date End Date Alo Carey DO [address] [place] [address] [place] [phone] PCP - General Internal Medicine 08/31/20 07/03/23 documented as of this encounter
--- OUTSIDE RECORDS SUMMARY | 2023-10-06 00:39 | XMS_ITS | Encounter Summary ---
Author [facility] [place] [address] Care Team Providers Care Loom Fixer Apprentice Name Role Phone Alo Carey Primary Care Provider [phone] Encounter Details Date Type Department Care Team (Latest Contact Info) Description 06/11/2023 Travel Social History Tobacco Use Types Packs/Day Years Used Date Smoking Tobacco: Former Cigarettes 4 30 963 1992 Smokeless Tobacco: Never Alcohol Use Standard Drinks/Week Comments Yes 7 (1 standard drink = 0.6 oz pur e alcohol) [facility] Utilities Answer Date Recorded In the past 12 months has e electric, gas, oil, or water [employer] threatened to shut off services in your [...] place to sleep or slept in a m[facility]p (including now)? No 06/04/2023 Sex and Gender Information Value Date Recorded Sex Assigned at Not on file Gender Identity Not on file Sexual Orientation Not on file documented as of this encounter Plan of Treatment Upcoming Encounters Date Type Department Care Team (Late st Contact Info) Description 10/11/2023 10:00 AM EDT Tech [place] [address] Giacomo Queen 10/11/2023 11:15 AM EDT Office [place] [address] Basim Barr MD [facility] [place] [address] 10/18/2023 9:00 AM EDT Office Visit Hematology/Oncology at [address] [phone] Cl Hess MD [facility] [place] [address] Yessi Renee APRN [address] [place] [address] DR HEMATOLOGY AND ONCOLOGY [place], [place] [phone] 10/18/2023 9:30 AM EDT Infusion Hematology Oncology at [address] [phone] 10/24/2023 9:30 AM EDT Scheduled View Only Radiation Oncology at [address] [phone] Jeronimo Nurse [place] 10/24/2023 10:00 AM EDT Office Visit Radiation Oncology at [address] [phone] Bigg Peters MD [address] [place] [address] DR RADIATION ONCOLOGY [place], [place] [address] 11/01/2023 9:00 AM EDT Office Visit Hematology/Oncology at [address] [phone] Cl Hess MD [facility] [place] [address] Yessi Renee APRN [address] [place] [address] DR HEMATOLOGY AND ONCOLOGY [place], [place] [phone] 11/01/2023 9:30 AM EDT Infusion Hematology Oncology at [address] [phone] 12/24/2023 1:00 PM EDT TH Visit (TeleHealth) Radiation Oncology at [address] [phone] Ping Moore PA [facility] DR HEMATOLOGY [place] [address] documented as of this encounter Visit Diagnoses Not on filedocumented in this encounter Care Teams Loom Fixer Apprentice Relationship Specialty Start Date End Date Alo Carey DO [address] [place] [address] [place] [phone] PCP - General Internal Medicine 08/31/20 07/03/23 documented as of this encounter
--- OUTSIDE RECORDS SUMMARY | 2023-10-06 00:39 | XMS_ITS | Encounter Summary ---
[place] [address] Care Team Providers Care Length Control Tester Name Role Phone Alo Carey DO Primary Care Provider [phone] Reason for Visit * Reason Comments Medication Refill Encounter Details Date Type Department Care Team (Late Contact Info) Description 07/29/2022 Refill Radiation Oncology at [address] [phone] Bigg Peters MD [address] [place] [address] [place] [address] Malignant neoplasm of prostate Social [...] AM EDT Tech [place] [phone] Giacomo Queen 10/11/2023 11:15 AM EDT Office Visit [place] [phone] Basim Barr MD [facility] [place] [address] 10/18/2023 9:00 AM EDT Office Visit Hematology/Oncology at [address] [phone] 59 Cl Hess MD [facility] [place] [address] Yessi Renee, [address] HEMATOLOGY AND [place]OGY [place], [place] [address] [phone] 10/18/2023 9:30 AM EDT Infusion Hematology Oncology at [address] [phone] 10/24/2023 9:30 AM EDT Scheduled View Only Radiation Oncology at [address] [phone] Rad Nurse, [facility] 10/24/2023 10:00 AM EDT Office Visit Radiation Oncology at [address] [phone] Bigg Peters MD [address] [place] [address] DR RADIATION ONCOLOGY [place], [place] [phone] 11/01/2023 9:00 AM EDT Office Visit Hematology/Oncology at [address] [phone] Cl Hess MD [facility] [place] [address] Yessi Renee [address] HEMATOLOGY AND ONCOLOGY [place], [place] [address] [phone] 11/01/2023 9:30 AM EDT Infusion Hematology Oncology at [address] [phone] 12/24/2023 1:00 PM EDT TH Visit (TeleHealth) Radiation Oncology at [address] [phone] Ping Moore PA [facility] [place] [address] documented as of this encounter Visit Diagnoses Diagnosis Malignant neoplasm of prostate documented in this encounter Care Teams Length Control Tester Relationship Specialty Start Date End Date Alo Carey DO [address] [place] [address] [place] [address] PCP - General Internal Medicine 08/31/20 07/03/23 documented as of this encounter
--- OUTSIDE RECORDS SUMMARY | 2023-10-06 00:39 | XMS_ITS | Encounter Summary ---
Author Organization [facility] [place] [address] Care Team Providers Care Film Reader Name Role Phone Alo Carey Primary Care Provider [phone] Encounter Details Date Type Department Care Team (Late st Contact Info) Description 06/12/2023 Orders Only Hematology/Oncology at [address] [phone] Yessi Renee REVERBERATORY FURNACE OPERATOR [address] [place] [address] DR HEMATOLOGY [place] [address] Malignant neoplasm of head of pancreas; Pancreatic insufficiency Social History Tobacco Use Types Packs/Day Years Used Date Smoking Tobacco: Former Cigarettes 4 30 1 963 - 1992 Smokeless Tobacco: Never Alcohol Use Standard Drinks/Week Comments Yes 7 (1 standard drink = 0.6 oz pur e alcohol) [facility] Utilities Answer Date Recorded In the past 12 months has [employer], gas, oil, or water [employer] threatened to shut off services in your [...] AM EDT Tech [place] [address] Giacomo Queen 10/11/2023 11:15 AM EDT Office Visit [place] [address] Basim Barr MD [facility] [place] [place] [address] 10/18/2023 9:00 AM EDT Office Visit Hematology/Oncology at [address] [phone] Cl Hess MD [facility] [place] [address] Yessi Renee APRN [address] [place] [address] DR HEMATOLOGY AND ONCOLOGY [place], [place] [phone] 10/18/2023 9:30 AM EDT Infusion Hematology Oncology at [address] [phone] 10/24/2023 9:30 AM EDT Scheduled View Only Radiation Oncology at [address] [phone] [address] [facility] 10/24/2023 10:00 AM EDT Office Visit Radiation Oncology at [address] [phone] Bigg Peters MD [address] [place] [address] DR RADIATION ONCOLOGY [place], [place] [phone] 11/01/2023 9:00 AM EDT Office Visit Hematology/Oncology at [address] [phone] Cl Hess MD [facility] [place] [address] Yessi Renee APRN [address] [place] [address] DR HEMATOLOGY AND ONCOLOGY [place], [place] [phone] 11/01/2023 9:30 AM EDT Infusion Hematology Oncology at [address] [phone] 12/24/2023 1:00 PM EDT TH Visit (TeleHealth) Radiation Oncology at [address] [phone] Ping Moore PA [facility] HEMATOLOGY [place] [address] documented as of this encounter Visit Diagnoses Diagnosis Malignant neoplasm of head of pancreas Pancreatic insufficiency Other specified disease of pancreas documented in this encounter Care Teams Film Reader Relationship Specialty Start Date End Date Alo Carey DO [address] [place] [address] [place] [phone] PCP - General Internal Medicine 08/31/20 07/03/23 documented as of this encounter
--- OUTSIDE RECORDS SUMMARY | 2023-10-06 00:39 | XMS_ITS | Encounter Summary ---
Author Organization [facility] [place] [address] Care Team Providers Care Fish Conservationist Name Role Phone Alo Carey Primary Care Provider [phone] Encounter Details Date Type Department Care Team (Latest Contact Info) Description 06/04/2023 Travel Social History Tobacco Use Types Packs/Day Years Used Date Smoking Tobacco: Former Cigarettes 4 30 963 1992 Smokeless Tobacco: Never Alcohol Use Standard Drinks/Week Comments Yes 7 (1 standard drink = 0.6 oz pur e alcohol) [facility] Utilities Answer Date Recorded In the past 12 months has e electric, gas, oil, or water [employer] threatened to shut off services in your [...] Tech [place] [address] Giacomo Queen 10/11/2023 11:15 AM EDT Office [place] [address] Basim Barr MD [facility] [place] [address] 10/18/2023 9:00 AM EDT Office Visit Hematology/Oncology at [address] [phone] Cl Hess MD [facility] [address] Yessi Renee APRN [address] [place] [address] DR HEMATOLOGY AND ONCOLOGY [place], [place] [phone] 10/18/2023 9:30 AM EDT Infusion Hematology Oncology at [address] [phone] 10/24/2023 9:30 AM EDT Scheduled View Only Radiation Oncology at [address] [phone] Jeronimo Nurse [place] 10/24/2023 10:00 AM EDT Office Visit Radiation Oncology at [address] [phone] Bigg Peters MD [address] [place] [address] DR RADIATION ONCOLOGY [place], [place] [address] 11/01/2023 9:00 AM EDT Office Visit Hematology/Oncology at [address] [phone] Cl Hess MD [facility] [address] Yessi Renee APRN [address] [place] [address] DR HEMATOLOGY AND ONCOLOGY [place], [place] [id number] 11/01/2023 9:30 AM EDT Infusion Hematology Oncology at [address] [phone] 12/24/2023 1:00 PM EDT TH Visit (TeleHealth) Radiation Oncology at [address] [phone] Ping Moore PA [facility] [place] [address] documented as of this encounter Visit Diagnoses Not on filedocumented in this encounter Care Teams Fish Conservationist Relationship Specialty Start Date End Date Alo Carey DO [address] [place] [address] [place] [phone] PCP - General Internal Medicine 08/31/20 07/03/23 documented as of this encounter
--- OUTSIDE RECORDS SUMMARY | 2023-10-06 00:39 | XMS_ITS | Encounter Summary ---
Author Organization [facility] Address [facility] [place] [address] Care Team Providers Care Tunnel Man Name Role Phone Alo Carey DO Primary Care Provider [phone] Reason for Visit * Reason Comments Genetic Evaluation * Consultation (Urgent) - Closed Specialty Diagnoses / Procedures Referred By Marques livingston Referred To Contact Genetics Diagnoses Malignant neoplasm of head of pancreas Cl Hess MD [facility] [place] [address] [facility] [address] [place] [address] Referral ID Status Reason Start Date Expiration Date V isits Requested Visits Authorized [id number] Closed Consult, Test & Treat 06/06/2023 06/05/2024 1 1 Encounter Details Date Type Department Care Team (Late st Contact Info) Description 06/13/2023 11:00 AM EDT TH Visit (TeleHealth) [place] [address] Real Cardenas V [facility] Hematology/[place] [address] Malignant neoplasm of head of pancreas; Malignant neoplasm of prostate; Family history of uterine cancer; Family history of stomach cancer; Family history of brain cancer; History of colon cancer Social History Tobacco Use Types Packs/Day Years Used Date Smoking Tobacco: Former Cigarettes 4 30 1 963 - 1992 Smokeless Tobacco: Never Alcohol Use Standard Drinks/Week Comments Yes 7 (1 standard drink = 0.6 oz pur e alcohol) [facility] Utilities Answer Date Recorded In the [...] as of this encounter Progress Notes * Real Cardenas LGC - 06/13/2023 11:00 AM EDT Wero Sadler was seen by ESTELITA Fernandez in consultation at the request of Cl Hess to advise regarding possible heritable predisposition to cancer. I spent 31 minutes of this telephone encounter with the patient gathering medical and family history and discussing the likelihood of a genetic predisposition to cancer and the option of genetic testing. Wero's significant other Amy was present for today's visit. Reason for referral/Chief complaint Personal history of colon, prostate, and pancreatic cancer. Medical history Cancer hx and treatment: Wero is a 73yo male with a recent diagnosis of pancreatic cancer. Pathology from EUS-guided biopsy of the pancreatic head mass on 04/29/23 showed scant epithelium with mild atypia, suspicious for adenocarcinoma. He reportedly was noted to have a cystic lesion in the head of the pancreas in 2020(CT and MRI were concerning for IPMN). F/u imaging was recommended for two years followed by annual and then every two years, but not done. He met with Dr. Hess on 06/07/23 for discussion of medical management and Wero is currently planning for neoadjuvant chemotherapy to be done in [facility]. Wero was previously diagnosed with prostate cancer in 2020, with biopsy done by Dr. Mayo in [place], [place] showing emilee 3+3 in 2 of 12 cores. Per clinic notes from Dr. Naylor, there was suspicion that Wero may have at least emilee 7 disease based on MRI findings and PSA greater than 20; heis s/p RT and ADT. Wero also has a prior history of colorectal cancer diagnosed in 2008 s/p resection and chemotherapy. Wero notes that he believes he spoke with someone about his family history and genetic testing while in in [place], but from our conversation and review of available records it does not appear that germline genetic testing has been completed. Family History of Cancer Problem Relation Age of Onset Liver Cancer Mother Brain Cancer Sister Stomach Cancer Brother Melanoma Brother Uterine Cancer Maternal Grandmother Lung Cancer Maternal Grandfather Lung Cancer Maternal Aunt 36 heavy smoker Maternal ethnic background is [place]. Paternal ethnic background is [place]. There is no known Ashkenazi Evangelical ancestry. Genetic risk assessment Based on personal and/or family history, the likelihood that Wero would be found to have a mutation in a cancer predisposition gene is high enough to offer the option of genetic testing. Specifically, Wero meets NCCN criteria for BRCA1/2 testing due to his personal history of pancreatic and prostate cancers. Wero also meets NCCN critieria for Ospina syndrome testing due to his personal history of pancreatic and colorectal cancer and family history of stomach cancer in a brother, brain cancer in a sister, and uterine cancer in his maternal grandmother. Reviewed purpose of testing, including the potential to impact treatment options/recommendations for his pancreatic cancer as well as to identify hereditary cancer risks for Wero and his relatives. Panel genetic testing for an inherited predisposition to cancer, including pancreatic, colon, and prostate cancer, was discussed. The risks, benefits and limitations of panel genetic testing were reviewed, specifically a high rate of identifying a variant of uncertain significance, lack of knowledge of cancer risk for newly identified, moderate risk genes included in the panel and lack of effective screening, as well as cancer risk for other cancers not observed in the family. We reviewed dominant inheritance, meaning that if a mutation is detected there is a 50% chance for Wero's children and siblings to have also inherited the same gene alteration. We discussed the Genetic Information Nondiscrimination Act (ROCKY), a federal law prohibiting discrimination by health insurance companies and most employers based on genetic information. ROCKY does not apply to life insurance, disability insurance or long-term care insurance. More information about ROCKY may be found at GinaHelp.org. Wero opted for testing with [employer]' CancerNext-Expanded +RNAinsight Panel, a next generation sequencing panel that simultaneously analyzes 71 genes, including BRCA1, BRCA2, MLH1, MSH2, MSH6, PMS2, and EPCAM that contribute to increased risk for cancer. Wero was verbally consented and will be sent consent forms via NGI to review, sign, and return. Amy will plan on assisting Wero with reading and signing these consents. Orders for the blood draw will be placed after signed consents are received. His blood sample will be drawn in ST once he has started infusions and sent to[employer]. Wero will be notified by text and/or email once [employer] completes their benefits investigation if his estimated out of pocket cost is over $100. At that time, if Wero is concerned about the estimated test cost he will have the option to contact [employer] directly and either apply for [employer]'s patient assistance program to try and reduce cost of testing based on income information, cancel testing, orswitch to a self-pay option of $250. If Wero does not respond to [employer], testing will be billed tohis insurance as the default option. Testing will take up to 3 weeks from when the lab receives the sample. Wero will be contacted viatelephone once his test results become available. At that time, we will discuss with Wero the implications that this test result may have for him as well as his family members, review any recommended screening guidelines for cancer prevention and early detection, and answer any questions he may have. documented in this encounter Plan of Treatment Upcoming Encounters Date Type Department Care Team (Late st Contact Info) Description 10/11/2023 10:00 AM EDT Tech [place] [phone] Giacomo Queen 10/11/2023 11:15 AM EDT Office [place] [phone] Basim Barr MD [facility] [place] [address] 10/18/2023 9:00 AM EDT Office Visit Hematology/Oncology at [address] [phone] Cl Hess MD [facility] [place] [address] Yessi Renee, [address] HEMATOLOGY AND ONCOLOGY [place], [place] [phone] 10/18/2023 9:30 AM EDT Infusion Hematology Oncology at [address] [phone] 10/24/2023 9:30 AM EDT Scheduled View Only Radiation Oncology at [address] [phone] St La Nena Champagne 10/24/2023 10:00 AM EDT Office Visit Radiation Oncology at [address] [phone] Bigg Peters MD [address] [place] [address] DR RADIATION ONCOLOGY [place], [place] [address] 11/01/2023 9:00 AM EDT Office Visit Hematology/Oncology at [address] [phone] Cl Hess MD [facility] [place] [address] Yessi Renee APRN [address] [place] [address] DR HEMATOLOGY AND ONCOLOGY [place], [place] [address] 11/01/2023 9:30 AM EDT Infusion Hematology Oncology at [address] [phone] 12/24/2023 1:00 PM EDT TH Visit (TeleHealth) Radiation Oncology at [address] [phone] Ping Moore PA [facility] DR [place] [address] Scheduled Referrals Name Type Priority Associated Diagnoses Orde r Schedule Referral to Familial Cancer Program (Genetics) Outpatient Referral Routine Malignant neoplasm of head of pancreas Ordered: 06/06/2023 documented as of this encounter Visit Diagnoses Diagnosis Malignant neoplasm of head of pancreas Malignant neoplasm of prostate Family history of uterine cancer Family history of malignant neoplasm of genital organ, other Family history of stomach cancer Family history of malignant neoplasm of gastrointestinal tract Family history of brain cancer Family history of other specified malignant neoplasm History of colon cancer Personal history of malignant neoplasm of large intestine documented in this encounter Care Teams Tunnel Man Relationship Specialty Start Date End Date Alo Carey DO [address] [place] [address] [place] [address] PCP - General Internal Medicine 08/31/20 07/03/23 documented as of this encounter
--- OUTSIDE RECORDS SUMMARY | 2023-10-06 00:39 | XMS_ITS | Encounter Summary ---
Author Organization [facility] [place] [address] Care Team Providers Care Tank Systems Maintainer Name Role Phone Alo Carey Primary Care Provider [phone] Encounter Details Date Type Department Care Team (Late st Contact Info) Description 04/10/2022 Telephone Radiation Oncology at [address] [phone] Nicole Bhatt, RN Social History Tobacco Use Types Packs/Day [...] Telephone Encounter - Swapna Castro RN - 04/11/2022 3:55 PM EST Call placed to [facility] in [place], in regards to patients Lupron inj. and recent lab results. 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 Correct number to reach him is [phone]. Message left for his primary RN to call this RN back in regards to most recent labs drawn on patient to be faxed to our clinic per 's request for review, as well as to give them informationon patients last doses of Lupron and when next dose is due. See below for Lupron dosing: Per Dr. Peters pt. to receive total of 18 months therapy. - 01/31/2021 Initial dose 7.5mg (1 month) - 03/31/2021 's office 22.5mg (3 month) - 06/28/2021 22.5mg (3 month) -09/21/2021 45mg (6 month) Patient is due for 45mg (6 month dose) now (was due in Mar) and would be his final dose. * Telephone Encounter - Nicole Bhatt RN - 04/10/2022 11:34 AM EST Telephone call to follow up regarding request for tamsulosin refill. He would like refill sent to [facility] in [place], [place] [address] and [facility]. He also mentioned that he had recent labs including PSA and HgbA1C done at [facility] by Dr. Hai Sewell (phone: [phone]) and was a bit surprised that we hadn't received results. He has not yet had last lupron dose and adds that Dr. Sewell was interested in your input regarding lupron dosing as he would be the one following this. Wero is planning to request labs sent to us. I let him know that will keep eye out for those results, update you and send any necessary information to [facility]. ===View-only below this line=== documented in this encounter Plan of Treatment Upcoming Encounters Date Type Department Care Team (Late st Contact Info) Description 10/11/2023 10:00 AM EDT Tech [place] [address] Giacomo Queen 10/11/2023 11:15 AM EDT Office Visit [place] [address] Basim Barr MD [facility] [place] [address] 10/18/2023 9:00 AM EDT Office Visit Hematology/Oncology at [address] [phone] Cl eHss MD [facility] [place] [address] Yessi Renee, [address] HEMATOLOGY AND ONCOLOGY [place], [place] [address] [phone] 10/18/2023 9:30 AM EDT Infusion Hematology Oncology at [address] [phone] 10/24/2023 9:30 AM EDT Scheduled View Only Radiation Oncology at [address] [phone] Rad Nurse, St 10/24/2023 10:00 AM EDT Office Visit Radiation Oncology at [address] [phone] Bigg Peters MD [address] [place] [address] [place] [address] 11/01/2023 9:00 AM EDT Office Visit Hematology/Oncology at [address] [phone] Cl Hess MD [facility] [address] Yessi Renee [address] HEMATOLOGY [place] [address] 11/01/2023 9:30 AM EDT Infusion Hematology Oncology at [address] [phone] 12/24/2023 1:00 PM EDT TH Visit (TeleHealth) Radiation Oncology at [address] [phone] Ping Moore PA [facility] [place] [address] documented as of this encounter Visit Diagnoses Not on filedocumented in this encounter Care Teams Tank Systems Maintainer Relationship Specialty Start Date End Date Alo Carey DO [address] [place] [address] [place] [phone] PCP - General Internal Medicine 08/31/20 07/03/23 documented as of this encounter
--- OUTSIDE RECORDS SUMMARY | 2023-10-06 00:40 | XMS_ITS | Encounter Summary ---
[place] [address] Care Team Providers Care Fish Agent Name Role Phone Alo Carey Primary Care Provider [phone] Encounter Details Date Type Department Care Team (Late st Contact Info) Description 08/24/2021 1:00 PM EDT Office Visit Radiation Oncology at [address] [phone] Bigg Peters MD [address] [place] [address] [place] [address] Malignant neoplasm of prostate Social [...] Sign Reading Time Taken Comments Blood Pressure 163/77 08/24/2021 1:34 PM EDT Pulse 63 08/24/2021 1:34 PM EDT Temperature 36.3 ??C (97.4 ??F) 08/24/2021 1:34 PM ED T Respiratory Rate 20 08/24/2021 1:34 PM EDT Oxygen Saturation 96% 08/24/2021 1:34 PM EDT Inhaled Oxygen Concentration - - Weight 106.1 kg (234 lb) 08/24/2021 1:34 PM EDT Height - - Body Mass Index 32.64 08/15/2021 9:08 AM EDT documented in this encounter Progress Notes * Bigg Peters MD - 08/24/2021 1:00 PM EDT Images from the original note were not included. [facility] Medicine Radiation Oncology Radiation Oncology On-treatment Visit Note Patient ID Patient name: Wero Sadler Date of : 1950 Referring: Dr Oniel Myers PCP: Dr Carey Chief complaint: High Risk Prostate Cancer (Gl 6, PSA 21, cT1c / mrT3a) Treatment Details Intent: Definitive (Curative) Concurrent Therapy: LT-ADT (planned 18 months) ONCBCN ONCOLOGY (AMB) 01/31/2021 06/28/2021 leuprolide (Lupron Depot) IM 7.5 mg 22.5 mg Modality: VMAT Treatment Site Prostate / Proximal SV / Pelvis Prescribed Dose 70Gy in 28 fractions / 58.8Gy / 50.4Gy in 28 fractions Current Dose: 50 Gy in 20 fractions (prostate dose) Interval Clinical Course General No changes since last seen. GI Loose stools x 3 today so far. Not following LRD. Has not tried Imodium. Prefers not to try it. Nocturia 2-3x/nt at baseline - now more like 1-2x night, since starting Flomax 0.4mg qhs. Daytime sx are also better. Pain: Pain score today is 0/10. Taking Aleve 1 tab BID for joint (left thumb, left knee) pain. Prostate IPSS and DWAIN(Pt Entered): last 5 values Prostate Today's Scores 01/20/2021 04/26/2021 Sexual Health Inventory for Men 1 (Severe ED) - International Prostate Symptom Score 9 (Moderate LUTS) 4 ( Mild LUTS) Performance Status KPS Score ECOG Grade Definition 90-100 0 Fully active, able to carry on all pre-disease performance without restriction XX 70-80 1 Restricted in physically strenuous activity but ambulatory and able to carry out work ofa light or sedentary nature, e.g., light house [...] selfcare; totally confined to bed or chair Medications Medications 08/24/21 1332 Medication Sig Taking? naproxen sodium (ANAPROX) 220 mg Tablet Take 220 mg by mouth as needed. Yes tamsulosin (Flomax) 0.4 mg Capsule Take 1 capsule by mouth nightly. Yes folic acid (Folvite) 1 mg Tablet Take 1 tablet by mouth daily. Yes lisinopriL (Zestril) 40 mg Tablet Take 1 tablet by mouth daily. Yes isosorbide mononitrate CR (Imdur) 30 mg Tablet Sustained Release 24 hr Take 1 tablet by mouth nightly. Yes atorvastatin (Lipitor) 80 mg Tablet Take 1 tablet by mouth every evening. Yes acetaminophen (Tylenol) 500 mg Tablet Take 2 tablets by mouth every 6 hours. Yes carvediloL (Coreg) 25 mg Tablet Take 25 mg by mouth 2 times daily (with meals). Yes glimepiride (Amaryl) 1 mg Tablet Take 1 mg by mouth daily. Yes metFORMIN (FORTAMET) 500 mg Tablet Extended Rel 24 hr Take 1,000 mg by mouth 2 times daily (with meals). Yes amLODIPine (Norvasc) 10 mg Tablet Take 80 mg by mouth daily. Yes aspirin EC 81 mg Tablet, Delayed Release (E.C.) Take 81 mg by mouth daily. Yes fish oil-omega-3 fatty acids 1,000 mg Capsule Take 2 g by mouth daily. Yes Exam BP 163/77 (Patient Position: Sitting) Pulse 63 Temp 36.3 ??C (97.4 ??F) (Temporal) Resp 20 Wt 106.1 kg (234 lb) SpO2 96% BMI 32.64 kg/m?? General: Appears well, in no distress Abdomen: Soft, non tender Imaging/Labs Interval setup imaging has been checked and approved. See [employer] for details. 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 Next Lupron September 21 LUTS Cont flomax 0.4mg qhs, Aleve <= 1tab BID. Diarrhea: Rec low residue diet. Imodium PRN. Followup: Return to clinic next week for on treatment check. No orders of the defined types were placed in this encounter. ??? [facility] [place] ([facility]) [facility] ??? [employer] Commission on Cancer (ACS Joanna) Accredited Cancer Program ??? [employer] (ACR) Accredited Radiation Oncology Program documented in this encounter Plan of Treatment Upcoming Encounters Date Type Department Care Team (Late st Contact Info) Description 10/11/2023 10:00 AM EDT Tech [place] [phone] Giacomo Queen 10/11/2023 11:15 AM EDT Office [place] [phone] Basim Barr MD [facility] [place] [address] 10/18/2023 9:00 AM EDT Office Visit Hematology/Oncology at [address] [phone] Cl Hess MD [facility] [place] [address] Yessi Renee APRN [address] [place] [address] DR HEMATOLOGY AND ONCOLOGY [place], [place] [phone] 10/18/2023 9:30 AM EDT Infusion Hematology Oncology at [address] [phone] 10/24/2023 9:30 AM EDT Scheduled View Only Radiation Oncology at [address] [phone] St La N[facility] Champagne 10/24/2023 10:00 AM EDT Office Visit Radiation Oncology at [address] [phone] Bigg Peters MD [address] [place] [address] DR RADIATION ONCOLOGY [place], [place] [phone] 11/01/2023 9:00 AM EDT Office Visit Hematology/Oncology at [address] [phone] Cl Hess MD [facility] [place] [address] Yessi Renee APRN [address] [place] [address] DR HEMATOLOGY AND ONCOLOGY [place], [place] [phone] 11/01/2023 9:30 AM EDT Infusion Hematology Oncology at [address] [phone] 12/24/2023 1:00 PM EDT TH Visit (TeleHealth) Radiation Oncology at [address] [phone] Ping Moore PA [facility] DR [place] [address] documented as of this encounter Visit Diagnoses Diagnosis Malignant neoplasm of prostate documented in this encounter Care Teams Fish Agent Relationship Specialty Start Date End Date Alo Carey DO [address] [place] [address] [place] [phone] PCP - General Internal Medicine 08/31/20 07/03/23 documented as of this encounter
--- OUTSIDE RECORDS SUMMARY | 2023-10-06 00:40 | XMS_ITS | Encounter Summary ---
[place] [address] Care Team Providers Care Site Operations Manager Name Role Phone Alo Carey Primary Care Provider Encounter Details Date Type Department Care Team (Late st Contact Info) Description 08/17/2021 1:00 PM EDT Office Visit Radiation Oncology at [address] [phone] Bigg Peters MD [address] [place] [address] [place] [address] Malignant neoplasm of prostate Social [...] Sign Reading Time Taken Comments Blood Pressure 164/77 08/17/2021 1:11 PM EDT Pulse 67 08/17/2021 1:11 PM EDT Temperature 36.2 ??C (97.1 ??F) 08/17/2021 1:11 PM ED T Respiratory Rate 20 08/17/2021 1:11 PM EDT Oxygen Saturation 98% 08/17/2021 1:11 PM EDT Inhaled Oxygen Concentration - - Weight 104 kg (229 lb 3.2 oz) 08/17/2021 1:11 PM EDT Height - - Body Mass Index 31.97 08/15/2021 9:08 AM EDT documented in this encounter Progress Notes * Bigg Peters MD - 08/17/2021 1:00 PM EDT Images from the original note were not included. [facility] Medicine Radiation Oncology Radiation Oncology On-treatment Visit Note Patient ID Patient name: Wero Sadler Date of : 1950 Referring: Dr Oniel Myers PCP: Dr aCrey Chief complaint: High Risk Prostate Cancer (Gl 6, PSA 21, cT1c / mrT3a) Treatment Details Intent: Definitive (Curative) Concurrent Therapy: LT-ADT (planned 18 months) ONCBCN ONCOLOGY (AMB) 01/31/2021 06/28/2021 leuprolide (Lupron Depot) IM 7.5 mg 22.5 mg Modality: VMAT Treatment Site Prostate / Proximal SV / Pelvis Prescribed Dose 70Gy in 28 fractions / 58.8Gy / 50.4Gy in 28 fractions Current Dose: 40 Gy in 16 fractions (prostate dose) Interval Clinical Course General No changes since last seen. GI Loose stools x 3 today so far. Not following LRD. Has not tried Imodium. Prefers not to try it. Nocturia 2-3x/nt at baseline - up just 1x last night, since starting Flomax 0.4mg qhs. Daytime [...] confined to bed or chair Medications Medications 08/17/21 1325 Medication Sig Taking? naproxen sodium (ANAPROX) 220 mg Tablet Take 220 mg by mouth 2 times daily (with meals). Yes tamsulosin (Flomax) 0.4 mg Capsule Take 1 capsule by mouth nightly. Yes folic acid (Folvite) 1 mg Tablet Take 1 tablet by mouth daily. Yes thiamine (thiamine) Take 2.5 tablets by mouth daily for 5 days, THEN 1 tablet daily for 25 days. Yes lisinopriL (Zestril) 40 mg Tablet Take 1 tablet by mouth daily. Yes isosorbide mononitrate CR (Imdur) 30 mg Tablet Sustained Release 24 hr Take 1 tablet by mouth nightly. Yes atorvastatin (Lipitor) 80 mg Tablet Take 1 tablet by mouth every evening. Yes carvediloL (Coreg) 25 mg Tablet Take [...] Take 2 g by mouth daily. Yes acetaminophen (Tylenol) 500 mg Tablet Take 2 tablets by mouth every 6 hours. Patient not taking: Reported on 08/17/2021 Exam BP 164/77 (Patient Position: Sitting) Pulse 67 Temp 36.2 ??C (97.1 ??F) (Temporal) Resp 20 Wt 104 kg (229 lb 3.2 oz) SpO2 98% BMI 31.97 kg/m?? General: Appears well, in no distress Abdomen: Soft, non tender Imaging/Labs Interval setup imaging has been checked and approved. See [facility] for details. 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 Next Lupron due September 21 LUTS Rec flomax 0.4mg qhs. Cont Aleve but decrease to 1tab BID. Diarrhea: Rec low residue diet. Imodium PRN. Followup: Return to clinic next week for on treatment check. No orders of the defined types were placed in this encounter. ??? [facility] [place] ([facility]) [facility] ??? [employer] Commission on Cancer (ACS Joanna) Accredited Cancer Program ??? [employer] [place] [employer] (A[employer]) Accredited Radiation Oncology Program documented in this encounter Plan of Treatment Upcoming Encounters Date Type Department Care Team (Late st Contact Info) Description 10/11/2023 10:00 AM EDT Tech [place] [address] Giacomo Queen 10/11/2023 11:15 AM EDT Office Visit [place] [address] Basim Barr MD [facility] [place] [address] 10/18/2023 9:00 AM EDT Office Visit Hematology/Oncology at [address] [phone] Cl Hess MD [facility] [place] [place] [address] Yessi Renee APRN [address] [place] [address] DR HEMATOLOGY AND ONCOLOGY [place], [place] [id number] 10/18/2023 9:30 AM EDT Infusion Hematology Oncology at [address] [phone] 10/24/2023 9:30 AM EDT Scheduled View Only Radiation Oncology at [address] [phone] Jeronimo Nurse [place] 10/24/2023 10:00 AM EDT Office Visit Radiation Oncology at [address] [phone] Bigg Peters MD [address] [place] [address] DR RADIATION ONCOLOGY [place], [place] [address] 11/01/2023 9:00 AM EDT Office Visit Hematology/Oncology at [address] [phone] Cl Hess MD [facility] [place] [place] [address] Yessi Renee APRN [address] [place] [address] DR HEMATOLOGY AND ONCOLOGY [place], [place] [id number] 11/01/2023 9:30 AM EDT Infusion Hematology Oncology at [address] [phone] 12/24/2023 1:00 PM EDT TH Visit (TeleHealth) Radiation Oncology at [address] [phone] Ping Moore PA [facility] DR HEMATOLOGY [place] [address] documented as of this encounter Visit Diagnoses Diagnosis Malignant neoplasm of prostate documented in this encounter Care Teams Site Operations Manager Relationship Specialty Start Date End Date Alo Carey DO [address] [place] [address] [place] [phone] PCP - General Internal Medicine 08/31/20 07/03/23 documented as of this encounter
--- OUTSIDE RECORDS SUMMARY | 2023-10-06 00:40 | XMS_ITS | Encounter Summary ---
Author Organization [facility] [place] [address] Care Team Providers Care Proof Tester Name Role Phone Alo Carey DO Primary Care Provider Reason for Visit * Reason Comments Medication Refill Encounter Details Date Type Department Care Team (Late st Contact Info) Description 10/23/2021 Refill Radiation Oncology at [address] [phone] Bigg Peters MD [address] [place] [address] [place] [address] Social History Tobacco Use Types Packs/Day Years [...] AM EDT Tech [place] [phone] Giacomo Queen 10/11/2023 11:15 AM EDT Office [place] [phone] Basim Barr MD [facility] [place] [address] 10/18/2023 9:00 AM EDT Office Visit Hematology/Oncology at [address] [phone] 61 Cl Hess MD [facility] [place] [address] Yessi Renee [address] HEMATOLOGY AND [place], [place] [address] [phone] 10/18/2023 9:30 AM EDT Infusion Hematology Oncology at [address] [phone] 10/24/2023 9:30 AM EDT Scheduled View Only Radiation Oncology at [address] [phone] Rad Nurse, [facility] 10/24/2023 10:00 AM EDT Office Visit Radiation Oncology at [address] [phone] Bigg Peters MD [address] [place] [address] [place] [address] 11/01/2023 9:00 AM EDT Office Visit Hematology/Oncology at [address] [phone] Cl Hess MD [facility] [place] [address] Yessi Renee [address] HEMATOLOGY AND [place]COLOGY [place], [place] [address] [phone] 11/01/2023 9:30 AM EDT Infusion Hematology Oncology at [address] [phone] 12/24/2023 1:00 PM EDT TH Visit (TeleHealth) Radiation Oncology at [address] [phone] Ping Moore PA [facility] DR HEMATOLOGY [place] [address] documented as of this encounter Visit Diagnoses Not on filedocumented in this encounter Care Teams Proof Tester Relationship Specialty Start Date End Date Alo Carey DO [address] [place] [address] [place] [phone] PCP - General Internal Medicine 08/31/20 07/03/23 documented as of this encounter
--- OUTSIDE RECORDS SUMMARY | 2023-10-06 00:40 | XMS_ITS | Encounter Summary ---
Author Organization [facility] Address [facility] [place] [address] Care Team Providers Care Banquet Cook Name Role Phone Alo Carey DO Primary Care Provider [phone] Reason for Visit * Reason Onset Date Comments Questions 10/02/2021 Encounter Details Date Type Department Care Team (Late st Contact Info) Description 10/02/2021 Telephone [place] [address] Ismael Wu MD [facility] DR [place] [address] Questions Social History Tobacco Use Types Packs/Day Years [...] encounter Miscellaneous Notes * Telephone Encounter - Margarita Benites - 10/02/2021 1:43 PM EDT Called patient to schedule an appt. He stated that he will reach out to his PCP for evaluation of his left knee. He will call back if he would like to be seen here. * Telephone Encounter - Marva Gonzales 10/02/2021 12:16 PM EDTSummary: LEFT KNEE Wero would like to know the team to know he had a fall in July that seems to have affected his left knee. He would like to talk to someone about this and if it might be also affecting his hip. He asked if we could take XR or MRI and I let him know he would have to be seen for this issue separately from his hip. Please call if you feel the need to discuss. Thank you. PH: [phone] documented in this encounter Plan of Treatment Upcoming Encounters Date Type Department Care Team (Late st Contact Info) Description 10/11/2023 10:00 AM EDT Tech [place] [address] Giacomo Queen 10/11/2023 11:15 AM EDT Office [place] [address] Basim Barr MD [facility] [place] [address] 10/18/2023 9:00 AM EDT Office Visit Hematology/Oncology at [address] [phone] Cl Hess MD [facility] [place] [address] Yessi Renee APRN [address] [place] [address] [place] [address] 10/18/2023 9:30 AM EDT Infusion Hematology Oncology at [address] [phone] 10/24/2023 9:30 AM EDT Scheduled View Only Radiation Oncology at [address] [phone] Jeronimo Nurse, [facility] 10/24/2023 10:00 AM EDT Office Visit Radiation Oncology at [address] [phone] Bigg Peters MD [address] [place] [address] DR RADIATION ONCOLOGY [place], [place] [phone] 11/01/2023 9:00 AM EDT Office Visit Hematology/Oncology at [address] [phone] Cl Hess MD [facility] [place] [address] Yessi Renee APRN [address] [place] [address] DR HEMATOLOGY AND ONCOLOGY [place], [place] [phone] 11/01/2023 9:30 AM EDT Infusion Hematology Oncology at [address] [phone] 12/24/2023 1:00 PM EDT TH Visit (TeleHealth) Radiation Oncology at [address] [phone] Ping Moore PA [facility] DR HEMATOLOGY [place] [address] documented as of this encounter Visit Diagnoses Not on filedocumented in this encounter Care Teams Banquet Cook Relationship Specialty Start Date End Date Alo Carey DO [address] [place] [address] [place] [phone] PCP - General Internal Medicine 08/31/20 07/03/23 documented as of this encounter
--- OUTSIDE RECORDS SUMMARY | 2023-10-06 00:40 | XMS_ITS | Encounter Summary ---
Author Organization [facility] [place] [address] Care Team Providers Care Community Service Patrol Officer Name Role Phone Alo Carey Primary Care Provider [phone] Reason for Visit * Reason Comments Injections Lupron Encounter Details Date Type Department Care Team (Late Contact Info) Description 09/21/2021 1:30 PM EDT Infusion Hematology Oncology at [address] [phone] Carcinoma of prostate Social History Tobacco Use [...] Progress Notes * Tammy Hooks RN - 09/21/2021 1:30 PM EDT Infusion Note Diagnosis:Prostate Cancer Treatment: Lupron Injection Lupron 45 mg injected IM in right buttocks. Patient instructed on side effects of Lupron. Patient states understanding of teaching and patient aware to call clinic with any questions or concerns. Plan: Return to clinic as scheduled. documented in this encounter Plan of Treatment Upcoming Encounters Date Type Department Care Team ([facility] Contact Info) Description 10/11/2023 10:00 AM EDT Tech [place] [address] Giacomo Queen 10/11/2023 11:15 AM EDT Office Visit [place] [address] Basim Barr MD [facility] [place] [address] 10/18/2023 9:00 AM EDT Office Visit Hematology/Oncology at [address] [phone] Cl Hess MD [facility] [place] [address] Yessi Renee APRN [address] [place] [address] DR HEMATOLOGY AND ONCOLOGY [place], [place] [phone] 10/18/2023 9:30 AM EDT Infusion Hematology Oncology at [address] [phone] 10/24/2023 9:30 AM EDT Scheduled View Only Radiation Oncology at [address] [phone] St [place] Champagne 10/24/2023 10:00 AM EDT Office Visit Radiation Oncology at [address] [phone] 26 Bigg Peters MD [address] [place] [address] DR RADIATION ONCOLOGY [place], [place] [phone] 11/01/2023 9:00 AM EDT Office Visit Hematology/Oncology at [address] [phone] Cl Hess MD [facility] [place] [address] Yessi Renee APRN [address] [place] [address] DR HEMATOLOGY AND ONCOLOGY [place], [place] [phone] 11/01/2023 9:30 AM EDT Infusion Hematology Oncology at [address] [phone] 12/24/2023 1:00 PM EDT TH Visit (TeleHealth) Radiation Oncology at [address] [phone] Ping Moore PA [facility] DR HEMATOLOGY [place] [address] documented as of this encounter Visit Diagnoses Diagnosis Carcinoma of prostate Malignant neoplasm of prostate documented in this encounter Administered Medications Inactive Administered Medications - up to 3 most recent administrations Medication Order MAR Action Action Date Dose Rate Site leuprolide acetate (6 month) (LUPRON DEPOT) injection 45 mg 45 mg, Intramuscular, ONCE, 1 dose, On Ammy 09/21/21 at 1400, Routine, This agent is restricted to outpatient use. Is this drug being given as an outpatient? Yes Given 09/21/2021 1:56 PM EDT 45 mg Right Gluteal documented in this encounter Care Teams Community Service Patrol Officer Relationship Specialty Start Date End Date Alo Carey DO [address] [place] [address] [place] [phone] PCP - General Internal Medicine 08/31/20 07/03/23 documented as of this encounter
--- OUTSIDE RECORDS SUMMARY | 2023-10-06 00:40 | XMS_ITS | Encounter Summary ---
Author Organization [facility] [place] [address] Care Team Providers Care Warp Dresser Name Role Phone Cherry Alo Lon RUTHERFORD Primary Care Provider Reason for Referral * Diagnostic Test (Routine) - Closed Specialty Diagnoses / Procedures Referred By Marques livingston Referred To Contact Diagnoses Presence of internal carotid stent Procedures Carotid Duplex, Bilateral Basim Barr MD [facility] [place] [address] [facility] Vascular Lab [address] [place] [phone] Referral ID Status Reason Start Date Expiration Date V isits Requested Visits Authorized [id number] Closed Specialty Service Requested 08/15/2021 08/15/2022 1 1 Encounter Details Date Type Department Care Team (Late st Contact Info) Description 08/15/2021 9:45 AM EDT Office [place] [phone] Basim Barr MD [facility] [place] [address] Presence of internal carotid stent Social History [...] Sign Reading Time Taken Comments Blood Pressure 154/66 08/15/2021 9:09 AM EDT Pulse 72 08/15/2021 9:08 AM EDT Temperature - - Respiratory Rate - - Oxygen Saturation - - Inhaled Oxygen Concentration - - Weight 104.3 kg (230 lb) 08/15/2021 9:08 AM EDT reported Height 180.3 cm (5' 11) 08/15/2021 9:08 AM EDT reported Body Mass Index 32.08 08/15/2021 9:08 AM EDT documented in this encounter Progress Notes * Basim Barr MD - 08/15/2021 9:45 AM EDT OUTPATIENT VASCULAR SURGERY CONSULTATION Reason for Visit: R ICA stenosis History of Present Illness: This is a 71 y.o. Male with decreased vision R eye and severe R ICA stenosis following CEA. Outside CTA from [facility] reviewed and shows a high grade right ICA stenosis and a moderate right petrous and cavernous stenoses. His last ischemic event was 11/2019 when he had ocular event. 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 He is on DAPT and needs a R hip replacement. He is now status post a right transcervical carotid artery stent that was performed in July 2021. 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 Since his discharge she has done well he remains alert and oriented x3. No focal neurologic symptoms. He does state that he thinks the vision in his right eye has worsened. 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 He has not seen an company truck driver in some time. reports that he quit smoking about 29 years ago. His smoking use included cigarettes. He has a 120.00 pack-year smoking history. He has never used smokeless tobacco. Patient Active Problem List Diagnosis Code ??? Colorectal cancer C19 ??? Diabetes mellitus E11.9 ??? Hypercholesterolemia E78.00 ??? Hypertensive disorder I10 ??? ASCVD (arteriosclerotic cardiovascular disease) I25.10 ??? Primary osteoarthritis of left hip M16.12 ??? s/p L JIMI, posterior, Dr. Wu, 10/10/20 Z96.642 ??? Postoperative urinary retention N99.89, R33.8 ??? Malignant neoplasm of prostate C61 ??? Benign prostatic hyperplasia N40.0 ??? Obstructive sleep apnea syndrome G47.33 ??? BPH (benign prostatic hyperplasia) N40.0 ??? Hx of CABG Z95.1 ??? 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 Carcinoma of prostate C61 ??? Dysphagia R13.10 ??? Hearing loss H91.90 ??? History of carotid endarterectomy Z98.890 ??? History of cerebrovascular accident Z86.73 ??? History of claudication Z86.79 ??? Stenosis of carotid artery, unspecified laterality I65.29 ??? Altered mental status, unspecified altered mental status type R41.82 Current Outpatient Medications: ??? naproxen sodium (ANAPROX) 220 mg Tablet, Take 220 mg by mouth 2 times daily (with meals)., Disp: , Rfl: ??? tamsulosin (Flomax) 0.4 mg Capsule, Take 1 capsule by mouth nightly., Disp: 30 tablet, Rfl: PRN ??? folic acid (Folvite) 1 mg Tablet, Take 1 tablet by mouth daily., Disp: 90 tablet, Rfl: 3 ??? thiamine (thiamine), Take 2.5 tablets by mouth daily for 5 days, THEN 1 tablet daily for 25 days., Disp: 38 tablet, Rfl: 0 ??? lisinopriL (Zestril) 40 mg Tablet, Take 1 tablet by mouth daily., Disp: 90 tablet, Rfl: 3 ??? isosorbide mononitrate CR (Imdur) 30 mg Tablet Sustained Release 24 hr, Take 1 tablet by mouth nightly., Disp: 30 tablet, Rfl: 12 ??? atorvastatin (Lipitor) 80 mg Tablet, Take 1 tablet by mouth every evening., Disp: 90 tablet, Rfl: 3 ??? carvediloL (Coreg) 25 mg Tablet, Take 25 mg by mouth 2 times daily (with meals)., Disp: , Rfl: ??? glimepiride (Amaryl) 1 mg Tablet, Take 1 mg by mouth daily., Disp: , Rfl: ??? clopidogreL (Plavix) 75 mg Tablet, daily., Disp: , Rfl: ??? metFORMIN (FORTAMET) 500 mg Tablet Extended Rel 24 hr, Take 1,000 mg by mouth 2 times daily (with meals)., Disp: , Rfl: ??? amLODIPine (Norvasc) 10 mg Tablet, Take 80 mg by mouth daily., Disp: , Rfl: ??? aspirin EC 81 mg Tablet, Delayed Release (E.C.), Take 81 mg by mouth daily., Disp: , Rfl: ??? fish oil-omega-3 fatty acids 1,000 mg Capsule, Take 2 g by mouth daily., Disp: , Rfl: ??? multivitamin with minerals (Thera M) 9 mg iron-400 mcg Tablet, Take 1 tablet by mouth daily. (Patient not taking: No sig reported), Disp: 90 tablet, Rfl: 3 ??? acetaminophen (Tylenol) 500 mg Tablet, Take 2 tablets by mouth every 6 hours. (Patient not taking: No sig reported), Disp: 30 tablet, Rfl: 1 Allergies Allergen Reactions ??? Cyclobenzaprine Other (See Comments) Extreme moodiness ??? Other [Unclassified Drug] Other (See Comments) Had reaction to a dye used during vascular procedure at [facility] in [place]: shaking Has tolerated MRI and CT contrast. [...] for Thrombosis, Bleeding Disorders Physical Exam: BP 154/66 (BP Location (NBP): Left arm, Patient Position: Sitting, BP Cuff Sizes: Adult (25-34 cm)) Pulse 72 Ht 180.3 cm (5' 11) Comment: reported Wt 104.3 kg (230 lb) Comment: reported BMI 32.08 kg/m?? General - NAD, appears stated age Neuro [...] Femoral 2/2 2/2 Popliteal DP PT Labs: Recent Results (from the past 72 hour(s)) Carotid Duplex, Bilateral Result Value Ref Range VB Text Report Department: Vascular Surgery Lab Patient: [id number] (THA JARRETT) CPT: 42641 Referring Physician: AL FLORES Phone: Indications: S/p RT TCAR, ? patency/stenosis Findings: Stent 1 - Pre PSV (cm/s): 32 EDV (cm/s): 11 Location: Right CCA Distal Stent 1 - Prox PSV (cm/s): 45 EDV (cm/s): 13 Stent 1 - Mid PSV (cm/s): 47 EDV (cm/s): 13 Stent 1 - Distal PSV (cm/s): 52 EDV (cm/s): 14 Stent 1 - Post PSV (cm/s): 74 EDV (cm/s): 19 Location: Right ICA Prox ICA Proximal, Right PSV (cm/s): 74 EDV (cm/s): 19 ICA/CCA: 2.3 Plaque Structure: Echogenic Plaque Surface: Smooth %Stenosis: <15% ICA Distal, Right PSV (cm/s): 56 EDV (cm/s): 19 ICA/CCA: 1.8 CCA Distal, Right PSV (cm/s): 32 EDV (cm/s): 11 %Stenosis: <50% CCA Proximal, Right PSV (cm/s): 58 EDV (cm/s): 11 External Carotid Artery, Right PSV (cm/s): 36 EDV (cm/s): 6 %Stenosis: <50% Vertebral, Right PSV (cm/s): 47 EDV (cm/s): 12 Direction of Flow: Antegrade ICA Proximal, Left PSV (cm/s): 97 EDV (cm/s): 15 ICA/CCA: 1.0 Plaque Structure: Echogenic Plaque Surface: Irregular %Stenosis: 16-49% ICA Distal, Left PSV (cm/s): 73 EDV (cm/s): 22 ICA/CCA: 0.7 CCA Distal, Left PSV (cm/s): 98 EDV (cm/s): 16 %Stenosis: <50% CCA Proximal, Left PSV (cm/s): 98 EDV (cm/s): 14 External Carotid Artery, Left PSV (cm/s): 141 EDV (cm/s): 0 %Stenosis: <50% Vertebral, Left PSV (cm/s): 47 EDV (cm/s): 8 Direction of Flow: Antegrade Interpretation: RIGHT: There is irregular plaque in the common carotid artery causing <50% stenosis by B-mode. There is smooth plaque in the stented proximal internal carotid artery causing <15% stenosis when compared to the more distal internal car otid artery. The bifurcation level is in the mid neck. Improvement compared to previous exam. LEFT: There is irregular plaque in the common carotid artery causing <50% stenosis by B-mode. There is irregular plaque in the proximal internal carotid artery causing 16-49% stenosis when compared to the more distal internal carotid artery. The bifurcation level is in the mid neck. No identifiable change when compared to the previous exam. Vertebral Artery Data: Patent vertebral arteries with normal antegrade Doppler waveforms and velocities bilaterally. Previous Carotid Studies: Date RIGHT ICA Stenosis PSV Ratio LEFT ICA Stenosis PSV Ratio 16-49% 136 3.10 16-49% 95 1.10 Current Exam <15% 74 2.30 16-49% 97 1.00 VB Text Report End of Report Assessment and Plan: The right carotid stent is widely patent, on the left he has minimal stenosis. I discussed with himprior to the procedure that did not expect any change in his vision following the carotid stent procedure. Our plan will be to have the patient stop his Plavix at this point. He can proceed with his right total hip replacement as needed. He should see an company truck driver for follow-up of his continued right eye visual loss. We will put in a referral for this. We will have him return to the office in approximately 4 months with a repeat carotid duplex study. He will continue to take his aspirin and statin. . documented in this encounter Plan of Treatment Upcoming Encounters Date Type Department Care Team (Late st Contact Info) Description 10/11/2023 10:00 AM EDT Tech [place] [phone] Giacomo Queen 10/11/2023 11:15 AM EDT Office [place] [phone] Basim Barr MD [facility] [place] [address] 10/18/2023 9:00 AM EDT Office Visit Hematology/Oncology at [address] [phone] Cl Hess MD [facility] [place] [address] Yessi Renee APRN [address] [place] [address] DR HEMATOLOGY AND ONCOLOGY [place], [place] [id number] 10/18/2023 9:30 AM EDT Infusion Hematology Oncology at [address] [phone] 10/24/2023 9:30 AM EDT Scheduled View Only Radiation Oncology at [address] [phone] St La Nena Champagne 10/24/2023 10:00 AM EDT Office Visit Radiation Oncology at [address] [phone] Bigg Peters MD [address] [place] [address] DR RADIATION ONCOLOGY [place], [place] [phone] 11/01/2023 9:00 AM EDT Office Visit Hematology/Oncology at [address] [phone] Cl Hess MD [facility] [place] [address] Yessi Renee APRN [address] [place] [address] DR HEMATOLOGY AND ONCOLOGY [place], [place] [id number] 11/01/2023 9:30 AM EDT Infusion Hematology Oncology at [address] [phone] 12/24/2023 1:00 PM EDT TH Visit (TeleHealth) Radiation Oncology at [address] [phone] Ping Moore PA [facility] DR [place] [address] documented as of this encounter Results * Carotid Duplex, Bilateral (10/12/2022 9:31 AM EDT) Pathologist [facility] VB Text Report Department: Vascular Surgery Lab Patient: [id number] (THA JARRETT) CPT: 60253 Referring Physician: BASIM BARR ?? Indications: HX Right carotid stent, [...] of Report VASCUBASE 10/12/2022 9:31 AM EDT Basim Barr MD VASCULAR ORDERABLES VASCUBASE documented in this encounter Visit Diagnoses Diagnosis Presence of internal carotid stent documented in this encounter Care Teams Warp Dresser Relationship Specialty Start Date End Date Alo Carey DO [address] [place] [address] [place] [phone] PCP - General Internal Medicine 08/31/20 07/03/23 documented as of this encounter
--- OUTSIDE RECORDS SUMMARY | 2023-10-06 00:40 | XMS_ITS | Encounter Summary ---
[place] [address] Care Team Providers Care Caustic Purification Operator Name Role Phone Alo Carey Primary Care Provider [phone] Encounter Details Date Type Department Care Team (Late st Contact Info) Description 09/21/2021 1:00 PM EDT Office Visit Radiation Oncology at [address] [phone] Bigg Peters MD [address] [place] [address] [place] [address] Malignant neoplasm of prostate Social [...] Sign Reading Time Taken Comments Blood Pressure 150/64 09/21/2021 1:17 PM EDT Pulse 71 09/21/2021 1:17 PM EDT Temperature 36.3 ??C (97.3 ??F) 09/21/2021 1:17 PM ED T Respiratory Rate 14 09/21/2021 1:17 PM EDT Oxygen Saturation 95% 09/21/2021 1:17 PM EDT Inhaled Oxygen Concentration - - Weight 106.3 kg (234 lb 6.4 oz) 09/21/2021 1:17 PM EDT Height - - Body Mass Index 32.69 08/15/2021 9:08 AM EDT documented in this encounter Progress Notes * Bigg Peters MD - 09/21/2021 1:00 PM EDT Images from the original note were not included. [facility] Medicine Radiation Oncology Radiation Oncology On-treatment Visit [...] / 58.8Gy / 50.4Gy in 28 fractions Completion Date 09/06/21 Interval Clinical Course General No changes since last seen. Overall feels well. No HF. GI No diarrhea. Stools normalized. Variable LUTS, seems to correlate to fluid intake. Also drinking beer, coffee daily. Taking flomax nightly which is helpful. Pain: Pain score today is 0/10. He has stopped taking Aleve. Prostate IPSS and DWAIN(Pt Entered): last 5 values Prostate Today's Scores 01/20/2021 04/26/2021 09/21/2021 Sexual Health Inventory for Men 1 (Severe ED) - - International Prostate Symptom Score 9 (Moderate LUTS) 4 ( Mild LUTS) 14 (Moderate LUTS) Performance Status KPS Score ECOG Grade [...] Medications Medications 08/24/21 1332 Medication Sig Taking? timoloL (Timoptic) 0.5 % Drops Yes erythromycin (Romycin) 5 mg/gram (0.5 %) Ointment Yes tamsulosin (Flomax) 0.4 mg Capsule Take [...] oil-omega-3 fatty acids 1,000 mg Capsule Take 1 g by mouth daily. Yes naproxen sodium (ANAPROX) 220 mg Tablet Take 220 mg by mouth as needed. Exam BP 150/64 (Patient Position: Sitting) Pulse 71 Temp 36.3 ??C (97.3 ??F) (Temporal) Resp 14 Wt 106.3 kg (234 lb 6.4 oz) SpO2 95% BMI 32.69 kg/m?? General: Appears well, in no distress Abdomen: Soft, non tender Imaging/Labs Interval setup imaging has been checked and approved. See Janet for details. Impression/Plan Tolerance to radiotherapy/ADT: Tolerated as anticipated He will get a 6 month Lupron (45mg) today will bring him up to ~1yr and 2 months. He will be in [place] at time his next shot is due and requests to have it there. He will need a 4 month shot at that timeto get him up to the recommended 18 month duration of ADT. He will call us when he's settled in this fall and let us know where he plans to go. We will get a PSA checked at that time as well. LUTS Cont flomax 0.4mg qhs PRN Followup: RV 1 year in person due to his travel plans No orders of the defined types were placed in this encounter. ??? [facility] [place] ([facility]) [facility] ??? [employer] [place] [employer] Commission on Cancer (ACS Joanna) Accredited Cancer Program ??? [employer] [place] (ACR) Accredited Radiation Oncology Program documented in this encounter Plan of Treatment Upcoming Encounters Date Type Department Care Team (Late st Contact Info) Description 10/11/2023 10:00 AM EDT Tech [place] [phone] Giacomo Queen 10/11/2023 11:15 AM EDT Office [place] [phone] Basim Barr MD [facility] [place] [address] 10/18/2023 9:00 AM EDT Office Visit Hematology/Oncology at [address] [phone] Cl Hess MD [facility] [place] [address] Yessi Renee APRN [address] [place] [address] DR HEMATOLOGY AND ONCOLOGY [place], [place] [phone] 10/18/2023 9:30 AM EDT Infusion Hematology Oncology at [address] [phone] 10/24/2023 9:30 AM EDT Scheduled View Only Radiation Oncology at [address] [phone] Rad Nurse, [facility] 10/24/2023 10:00 AM EDT Office Visit Radiation Oncology at [address] [phone] Bigg Peters MD [address] [place] [address] DR RADIATION ONCOLOGY [place], [place] [id number] 11/01/2023 9:00 AM EDT Office Visit Hematology/Oncology at [address] [phone] Cl Hess MD [facility] [place] [address] Yessi Renee APRN [address] [place] [address] DR HEMATOLOGY AND ONCOLOGY [place], [place] [phone] 11/01/2023 9:30 AM EDT Infusion Hematology Oncology at [address] [phone] 12/24/2023 1:00 PM EDT TH Visit (TeleHealth) Radiation Oncology at [address] [phone] Ping Moore PA [facility] [place] [address] documented as of this encounter Visit Diagnoses Diagnosis Malignant neoplasm of prostate documented in this encounter Care Teams Caustic Purification Operator Relationship Specialty Start Date End Date Alo Carey DO [address] [place] [address] [place] [phone] PCP - General Internal Medicine 08/31/20 07/03/23 documented as of this encounter
--- OUTSIDE RECORDS SUMMARY | 2023-10-06 00:40 | XMS_ITS | Encounter Summary ---
[place] [address] Care Team Providers Care Senior Officer Name Role Phone CherryAlo Lon RUTHERFORD Primary Care Provider Reason for Visit * Auth/Cert Specialty Diagnoses / Procedures Referred By Marques livingston Referred To Contact Diagnoses S/P total hip arthroplasty right hip OA Procedures PRO TOTAL HIP ARTHROPLASTY TOTAL HIP ARTHROPLASTY - POSTERIOR (WRVU 20.72) MODIFIER ACTIS HIP STEM DEPUY MODIFIER PINNACLE ACETABULUM DEPUY Ismael Wu MD [facility] ORTHOPAEDIC [place] [address] [facility] Referral ID Status Reason Start Date Expiration Date Visits Re quested Visits Authorized [id number] 1 1 Encounter Details Date Type Department Care Team (Late st Contact Info) Description 11/17/2021 1:00 PM EDT - 11/17/2021 4:45 PM EDT Surgery [place] [address] Ismael Wu MD [facility] ORTHOPAEDIC [place] [address] TOTAL HIP ARTHROPLASTY - POSTERIOR (WRVU 19.6) Social History Tobacco Use Types Packs/Day Years [...] Sign Reading Time Taken Comments Blood Pressure 162/71 11/17/2021 4:45 PM EDT Pulse 44 11/17/2021 4:45 PM EDT Temperature 36.3 ??C (97.3 ??F) 11/17/2021 4:45 PM ED T Respiratory Rate 13 11/17/2021 4:45 PM EDT Oxygen Saturation 99% 11/17/2021 4:45 PM EDT Inhaled Oxygen Concentration - - Weight - - Height - - Body Mass Index - - documented in this encounter Discharge Summaries * Branden Ramachandran PA - 11/18/2021 3:04 PM EDT Discharge Summary Patient Name: Wero Sadler Patient Age: 71 y.o. Language: Swedish Race: White Ethnicity: Not nor Admit date: 11/17/2021 Discharge date and time: 11/18/2021 Attending Physician: Ismael Wu MD Discharge Physician: Ismael Wu MD Follow-up Recommendations for Providers: See discharge instructions for additional details. Future Appointments Date Time Provider Department Center 12/22/2021 9:15 AM [facility] DX ROOM 3 Xray [facility] Rad 12/22/2021 10:00 AM Ismael Wu MD [facility] [place] 3C [facility] Inpatient Provider Contact Information: Ismael Wu MD Orthopedics: [phone] After hours and weekends, call [facility] Manager Gift, , and have the Orthopedic resident paged. [...] a dye used during vascular procedure at [facility] in [place]: shaking Has tolerated MRI and CT contrast. Immunizations Given this Hospitalization: Immunization History Administered Date(s) Administered ??? Influenza PF, Split (High Dose) 11/21/2020 ??? Moderna Covid-19 (Director Of Strategic Sourcing 100mcg) Vaccine 05/20/2020, 06/21/2020, 01/01/2021 ??? Td, [...] concerns regarding this plan, please contact our care specialist at [phone]. Your catheter will stay in until your [...] bowel movement. You can also take an achr-vax-sntcegk medication, Miralax if needed to combat constipation. [...] as much as possible. Call your doctor ([phone]) if you develop: 1. Fever greater than 100.5 2. Severe nausea or vomiting 3. Increasing pain that is not controlled by pain medications 4. Increasing redness, swelling, or drainage from incisions 5. Change in sensation FOLLOW-UP APPOINTMENTS: 1. You will have follow-up appointments at [facility] as indicated below in Future Appointment and Orders. 2. You will need to have x-rays prior to your follow-up appointment on 12/22. Please come to Radiology, desk 3T, 1 hour BEFORE that appointment for these x-rays. Future Appointments Date Time Provider Department Center 12/22/2021 9:15 AM [facility] DX ROOM 3 MH Xray [facility] Rad 12/22/2021 10:00 AM Ismael Wu MD [facility] [place]TH 3C [facility] If you have questions or concerns: Saturday through Saturday, 8 AM - 5 PM, please call Dr. Ismael Wu MD's office at . If it is after 5 PM, the weekend, or holidays, please call and ask to speak with theOrthopedic resident on-call. General Instructions None Future Appointments and Orders Future Appointments and Orders Future Appointments Provider Department Dept Phone 12/22/2021 9:15 AM [facility] DX ROOM 3 XRay at [facility] Arrive at: [facility]T [phone] Please go to [facility] ([facility]). 12/22/2021 10:00 AM Ismael Wu MD Orthopaedics at [facility] Arrive at: [facility] [phone] Future Orders Complete By Expires Referral to Home Health [REF34 Custom] As directed Process Instructions: If no progress note charted, please enter Clinical details in comments. Scheduling Instructions: Comments: Please evaluate Wero Sadler for admission to Home Health. [address] [facility] [address] (home) Date of : 1950 Inpatient DOCUMENTATION FOR VNA SERVICES (INCLUDING THOSE PATIENTS WITH MEDICARE COVERAGE REQUIRING HOME VNA SERVICES AND/OR HOSPICE SERVICES) Wero Sadler Discharge to own home: [address] [facility] [address] (home) Telephone Information: Plater Printed Circuit Board Panels's Name: Wero In discussion with the attending physician, it is certified that this patient is under their care and that they, or a nurse practitioner, clinical nurse specialist or physician's staff assistant who is working directly with them, [...] for services as follows: Home Health Agency: [facility] [place] [address] [place] [address] Home care orders for Total Hip Replacements: [...] this patient's PCP: Alo Carey DO [address] [place] [address] All VNA agencies which cover the area of patient's residence have been reviewed, either verbally alberto writing, and patient/family have chosen the home health care agency as noted for home services. Questions: Disciplines Requested: Nursing Physical Therapy Occupational Therapy Primary Care Provider: Alo Carey DO [phone] Discharge References/Attachments None documented in this encounter [...] concerns regarding this plan, please contact our care specialist at [phone]. Your catheter will stay in until your [...] bowel movement. You can also take an odsr-lyc-iharcjt medication, Miralax if needed to combat constipation. [...] as much as possible. Call your doctor ([phone]) if you develop: Fever greater than 100.5 Severe nausea or vomiting Increasing pain that is not controlled by pain medications Increasing redness, swelling, or drainage from incisions Change in sensation FOLLOW-UP APPOINTMENTS: 1. You will have follow-up appointments at [facility] as indicated below in Future Appointment and Orders. 2. You will need to have x-rays prior to your follow-up appointment on 12/22. Please come to Radiology, desk 3T, 1 hour BEFORE that appointment for these x-rays. Future Appointments Date Time Provider Department Center 12/22/2021 9:15 AM [facility] DX ROOM 3 Xray [facility] Rad 12/22/2021 10:00 AM Ismael Wu MD [facility] [place] 3C [facility] If you have questions or concerns: Saturday through Saturday, 8 AM - 5 PM, please call Dr. Ismael Wu MD's office at . If it is after 5 PM, the weekend, or holidays, please call and ask to [facility]. documented in this encounter Medications at Time of Discharge Medication Sig Dispensed Refills Start Date End Date omega 8-iod-lcd-fish oil 250-350-1,000 mg Capsule Take 1,000 mg [...] ??? Colon adenocarcinoma 2009 recieved chemo in [place] ??? Coronary artery disease ??? Coronary artery [...] 9.19) performed by Basim Barr MD at [facility] MAIN OR ??? PRO LASER VAPORIZATION SURGERY PROSTATE, COMPLETE Midline 02/02/2021 CYSTO, LASER TURP (WRVU 12.15) performed by Cayetano Egnle MD at [facility] MAIN OR ??? PRO PLACE TRANSCATHETER STENT, CCA W EMBOLIC PROECT Right 07/14/2021 @TRANSCATH INTRAVASCULAR STENT,CAROTID,PERC,W\EMBOLIC PROT. (WRVU 18) performed by Basim Barr MD at [facility] MAIN OR ??? PRO TOTAL HIP ARTHROPLASTY Left 10/10/2020 TOTAL HIP ARTHROPLASTY - POSTERIOR (WRVU 20.72) performed by Ismael Wu MD at [facility] MAIN OR Social History: Patient lives with [...] he returns home (planning on staying in hotel tonight if discharged) Toileting: Transfer: Anticipate supervision due [...] 50.11% limited in ADL performance per the [facility]. However, despite the deficits listed above [...] Minutes, Occupational Therapy: 31 (Low Complexity Eval [id number]) 2017 OT Evaluation Code Rationale: ?? Diagnosis [...] and measurable assessment of functional outcome. Ping lE OT 11/18/2021 Pager: [phone] Occupational Therapy Rehabilitation Department * Nimisha Mahoney, [...] 9.19) performed by Basim Barr MD at [facility] MAIN OR ??? PRO LASER VAPORIZATION SURGERY PROSTATE, COMPLETE Midline 02/02/2021 CYSTO, LASER TURP (WRVU 12.15) performed by Cayetano Engle MD at [facility] MAIN OR ??? PRO PLACE TRANSCATHETER STENT, CCA W EMBOLIC PROECT Right 07/14/2021 @TRANSCATH INTRAVASCULAR STENT,CAROTID,PERC,W\EMBOLIC PROT. (WRVU 18) performed by Basim Barr MD at [facility] MAIN OR ??? PRO TOTAL HIP ARTHROPLASTY Left 10/10/2020 TOTAL HIP ARTHROPLASTY - POSTERIOR (WRVU 20.72) performed by Ismael Wu MD at [facility] MAIN OR Social History: Wero lives with his S.Batsheva Reyes in a two story home with 2 LCARIBEL + rails. His bedroom is located on [...] low complexity eval Nimisha Mahoney, PT Pager: [phone] Physical Therapy Inpatient Rehabilitation Department * Slim Smallwood MD - 11/18/2021 5:52 AM EDT ORTHOPAEDIC SURGERY INPATIENT PROGRESS NOTE Patient Name: Wero Sadler Age: 71 y.o. Surgery/Issue: Right Total Hip Arthroplasty Attending: Dr. Wu Date of surgery: 11/17/2021 SUBJECTIVE / INTERVAL HISTORY: KAUR NAVA Hgb 11.1. Unable to void in PACU, [...] Ophthalmic Prep) 5 % ophthalmic solution ??? OTmspuauygc-GOKXXAExmir-xzbOQImge-ketorolac (LISANDRA) (2.46 mg-0.005 mg-0.0008 mg-0.3 mg/mL) cb-articular [...] Time Provider Department Center 12/22/2021 9:15 AM [facility] DX ROOM 3 MH Xray [facility] Rad 12/22/2021 10:00 AM Ismael Wu MD [facility] 3C [facility] * Floridalma Barron RN - 11/17/2021 9:35 [...] of urine.Urology resident Gunner arellano for assistance. 0: Uro Resident at bedside, successfully inserted witt catheter. 1425mL of urine drained. 1914: Report called to 3 West RN Shweta. * Cayetano Sena MD - 11/17/2021 4:51 [...] 4 mg ??? lactated ringers infusion ??? ABbnaavxrle-CLWDJIOyxzy-fskWCYkia-ketorolac (LISANDRA) (2.46 mg-0.005 mg-0.0008 mg-0.3 mg/mL) cb-articular [...] Time Provider Department Center 12/22/2021 9:15 AM [facility] DX ROOM 3 MH Xray [facility] Rad 12/22/2021 10:00 AM Ismael Wu MD [facility]TH [facility]C [facility] documented in this encounter H&P Notes * [...] properly marked. Charleen Smallwood MD Orthopaedic Surgery [facility] Associated attestation - Ismael Wu MD [...] Wu MD, MSc Division of Adult Reconstructive Cloth WinderProfiling Machine Operator of Orthopaedics Department of Orthopaedics [facility] [phone] [email or web address] documented in this encounter Procedure Notes * [...] COVID test: Lab Results Component Value Date [id number] Not Detected 07/19/2021 Past medical History: Past Medical History: Diagnosis Date ??? 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 can not read. can see shadows. No vision in left eye since child saavedra accident. ??? Cancer prostate, colorectal ??? Claudication ??? Colon adenocarcinoma 2009 recieved chemo in [place] ??? Coronary artery disease ??? Coronary artery dissection ??? CPAP (continuous positive airway pressure) dependence CPAP ??? Diabetes treated with medication ??? Gastroesophageal reflux ??? High blood pressure ??? Hyperlipidemia ??? Obstructive sleep apnea ??? Status post chemotherapy 2009 colon cancer ??? Stroke 11-24-19 Hospitalizations Within the Past 30 Days: no previous admission in last 30 days Current Decision-Making Capacity: Self If AD's have not been completed the following surrogate would be surrogate decision maker per [place] decision making law. (Only good for 180 days) Any patient receiving care in [place] must abide by [place] law. The hierarchy for surrogate decision making [...] (i) The agent with financial power of commercial litigation attorney or a conservator appointed in accordance with [...] wheelchair - manual Home Address confirmed as: [address] [facility] [address] [address] Social & Family Supports: All names listed below confirmed with patient as current and correct Extended Emergency Contact Information Primary Emergency Contact: TROYRICHIEQUANShanteAMY Address: [address] [place] [address] [facility] Mobile Relation: Significant Other Secondary Emergency Contact: LUIZAWANDA Mobile Relation: Sibling Current Care Provided by: [...] Yes (AARP) ; Prescription Coverage: Preferred Pharmacy: [id number] - [place], [place] - [address] [facility] [address] [phone] [place], [place] - [address] [facility] [address] [place] [address] [address] [facility] [address] Status: Patient is a : No Primary Care Provider: Aol Carey DO [phone] Patient/Caregiver Goals of Treatment: return home when medically ready for discharge Potential Needs for Transition of Care: home health care Agency Referrals: I have met with the patient to: ?? discuss discharge planning needs. ?? provide the [facility], Office of Care Management letter from the Docking Saw Operator pertaining to rehabreferrals. ?? provide a letter describing our affiliations within the [facility] and educate about their right to choose where referrals are sent. ?? provide a list of Home Health Agencies / Durable Medical Equipment vendors which serve their preferred geographic area. ?? provided patient with [facility] Star Quality Rating handout. They have requested referrals to: [facility] [place] [address] [place] [address] Note routed to a Porcelain Finish Sprayer who will communicate referrals to facilities and [...] assist with transition of care planning. Gissel SANTOS RN Phone: [phone] Pager: [phone] * Plan of Care - Floridalma Barron [...] stroke, per pt and L eye has information security consultant prosthesis. No acute events overnight. Will continue [...] assist with ADL's Surveillance [continuous indirect monitoring]: Uziel, Purposeful Rounding, Nurse Knowledge Exchange Patient-specific fall prevention interventions for sensory deficits provided, if applicable: Yes- glasses, pt is blind * Op Note - Ismael Wu MD - 11/17/2021 2:05 PM EDT [facility] Operative Note Patient Name: Wero Sadler : [id number] MR#: [id number] Case Date: 11/17/2021 Surgeon: Surgeon(s) and Role: * Ismael Wu MD - Primary * Slim Smallwood MD - Resident Preoperative Diagnosis: Osteoarthritis right Hip Postoperative Diagnosis: Same Procedure Performed: right Total Hip Arthroplasty (CPT code 43104) Anesthesia: Spinal IVF: See anesthesia report Estimated [...] of full thickness cartilage loss. IMPLANTS: System: Scaleformuy Femoral Stem: Actis high offset, Size 7; collared, SCOTT coated Acetabulum: Newton [place] Sector Gription size 60mm; x2 6.5mm cancellous screws Liner: 60 x 36mm neutral liner Femoral Head: 36mm +8.5mm ceramic head (Please also see the Surgical Encounter Summary for any Implant and Specimen details pertinent to this patient.) Implant Summary in EHR: Implant Name Type Inv. Item Serial No. Statement Request Clerk Lot No. LRB No. Used Action SHELL ACET HIP 60MM POR CTD MULTI HOLE TI PINNACLE GRIPTION ([id number]) (AUTOREQ) - [id number] IMPLANTS SHELL ACET HIP 60MM POR CTD MULTI HOLE TI PINNACLE GRIPTION ([id number]) (AutoReq) [employer] [facility] [id number] Right 1 Implanted LINER ACET HIP [id number] STND POLY PINNACLE ALTRX ([id number]) (AUTOREQ) - [id number] IMPLANTS LINER ACET HIP [id number] STND POLY PINNACLE ALTRX ([id number]) (AutoReq) [employer] [facility] [id number] Right 1 Implanted SCREW HIP ACET 6.5X25MM FT CANC HEX DRV TI PINNACLE ([id number]) (AUTOREQ) - [id number] IMPLANTS SCREWHIP ACET 6.5X25MM FT CANC HEX DRV TI PINNACLE ([id number]) (AutoReq) [employer] [facility] [id number] Right 1 Implanted SCREW HIP ACET 6.5X20MM FT CANC HEX DRV TI PINNACLE ([id number]) (AUTOREQ) - [id number] IMPLANTS SCREWHIP ACET 6.5X20MM FT CANC HEX DRV TI PINNACLE ([id number]) (AutoReq) [employer] [facility] [id number] Right 1 Implanted STEM FEMORAL HIP SZ 7 PROX 02/14 TAPER POR CLLR HIGH OFST TI ([id number]) (AUTOREQ) - [id number] IMPLANTS STEM FEMORAL HIP SZ 7 PROX 14 TAPER POR CLLR HIGH OFST TI ([id number]) (AutoReq) [employer] [facility] [id number] Right 1 Implanted HEAD FEMORAL HIP 36MM +8.5MM OFFSET 02/14 TPR CERAMIC ([id number]) (AUTOREQ) - [id number] IMPLANTS HEAD FEMORAL HIP 36MM +8.5MM OFFSET 02/14 TPR CERAMIC ([id number]) (AutoReq) [email or web address] [facility] [id number] Right 1 Implanted PATIENT HISTORY and INDICATIONS [...] ??? Colon adenocarcinoma 2008 recieved chemo in [place] ??? Coronary artery disease ??? Coronary artery dissection ??? CPAP (continuous positive airway pressure) dependence CPAP ??? Diabetes treated with medication ??? Gastroesophageal reflux ??? High blood pressure ??? Hyperlipidemia ??? Obstructive sleep apnea ??? Status post chemotherapy 2009 colon cancer ??? Stroke 11-24-19 DESCRIPTION OF [...] and found to be appropriate with good gnosticist of leg length and offset. A intraoperative x ray was taken and confirmed appropriate sizing and positioning of implants along with proper gnosticist of leg length and offset. The hip [...] patient was then awoken, transferred to the [facility] and taken to the PACU in stable [...] closing). Ismael Wu MD 11/17/2021 If the staff assistant surgeon is other than a qualified resident, I certify that the services were medically necessary and there was no qualified resident available to perform the services. documented in this encounter Plan of Treatment Upcoming Encounters Date Type Department Care Team (Late st Contact Info) Description 10/11/2023 10:00 AM EDT Tech Visit [place] [address] Giacomo Queen 10/11/2023 11:15 AM EDT Office Visit [place] [address] Basim Barr MD [facility] DR VASCULAR [place] [address] 10/18/2023 9:00 AM EDT Office Visit Hematology/Oncology at [address] [phone] Cl Hess MD [facility] [place] [address] Y[address] Renee [address] HEMATOLOGY AND ONCOLOGY [place], [place] [id number] 10/18/2023 9:30 AM EDT Infusion Hematology Oncology at [address] [phone] 10/24/2023 9:30 AM EDT Scheduled View Only Radiation Oncology at [address] [phone] St La Nena Champagne 10/24/2023 10:00 AM EDT Office Visit Radiation Oncology at [address] [phone] Bigg Peters MD [address] [place] [address] DR RADIATION ONCOLOGY [place], [place] [id number] 11/01/2023 9:00 AM EDT Office Visit Hematology/Oncology at [address] [phone] Cl Hess MD [facility] [place] [address] Yessi Renee [address] HEMATOLOGY AND ONCOLOGY [place], [place] [id number] 11/01/2023 9:30 AM EDT Infusion Hematology Oncology at [address] [phone] 12/24/2023 1:00 PM EDT TH Visit (TeleHealth) Radiation Oncology at [address] [phone] Ping oMore PA [facility] H[place]AT[place] [address] Scheduled Referrals Name Type Priority Associated Diagnoses [...] leg pain Arthroplasty Acetabular/Prox Fem Prostc Agrft/Algrft (09694) 11/17/2021 1:37 PM EDT Primary osteoarthritis of [...] Glucose, POC 182 65 - 199 mg/dL [facility] Comment: Supplemental ranges: <140 mg/dL before meals <180 mg/dL all other times of the day Blood 11/18/2021 11:5 2 AM EDT 11/18/2021 11:52 AM EDT Ismael Wu MD POINT OF CARE TEST ORDERABLES Performing Organization Address City/[facility]/ZIP Co de Phone Number [facility] [place] [address] * POCT Glucose (11/18/2021 7:50 AM EDT) Glucose, POC 159 65 - 199 mg/dL [facility] Comment: Supplemental ranges: <140 mg/dL before meals <180 mg/dL all other times of the day Blood 11/18/2021 7:50 AM EDT 11/18/2021 7:50 AM EDT Ismael Wu MD POINT OF CARE TEST ORDERABLES [facility] [place] [address] * (ABNORMAL) Differential, Automated (11/18/2021 3:20 AM EDT) Neutrophil % 86.1 % [facility] Neutrophil Absolute 8.17(H) 1.70 - 6.10 x10(3)/[facility]ORAT[facility] Lymph % 6.9 % [facility] Lymphocytes Abs 0.7(L) 0.9 - 3.2 x10(3)/[facility] LABORATORY Monocyte % 6.5 % [facility] Monocyte Abs 0.6 0.3 - 0.9 x10(3)/[facility] LABORATORY Eos % 0.1 % [facility] Eosinophils Abs 0.0 0.0 - 0.4 x10(3)/[facility] LABORATORY Basophil % 0.1 % [facility] Baso Absolute 0.0 0.0 - 0.1 x10(3)/[facility] LABORATORY Immature Gran % 0.30 % [facility] Comment: Immature granulocytes(IG's)percentage and absolute count will include metamyelocytes, myelocytes, and promyelocytes. Blood smears from CBCs yielding IG's will be scanned manually for concordance. If this scan disagrees with the automated IG or if promyelocytes are noted, a manual differential will be performed. Immature Gran Absolute 0.03 0.00 - 0.04 x10(3)/[facility] LABORATORY Blood 11/18/2021 3:20 AM EDT 11/18/2021 3:40 AM EDT Narrative Resulting Agency Comment Spec In Lab Slim Smallwood MD HEMATOLOGY ORDERABLE S [facility] [place] [address] * (ABNORMAL) Hemogram (11/18/2021 3:20 AM EDT) White Blood Cell 9.5 4.0 - 9.5 x10(3)/[facility] LABORATORY Red Blood Cell 3.50(L) 4.58 - 5.54 x10(6)/mc L [facility] Hemoglobin 11.1(L) 13.7 - 16.5 g/dL [facility] Hematocrit 33.0(L) 40.5 - 48.5 % [facility] Mean Cell Volume 94.3(H) 82.9 - 93.1 fL [facility] Mean Cell Hemoglobin 31.7 27.5 - 32.1 pg [facility] Mean Cell Hemoglobin Concentration 33.6 32.0 - 35.7 g/dL [facility] Platelet 178 145 - 357 x10(3)/mc L [facility] RDW Standard Deviation 43.3 36.0 - 45.0 [facility]ORY RDW coefficient of variation 12.6 11.4 - 13.8 % [facility] Mean Platelet Volume 10.1 7.6 - 12.9 [facility]ATORY NRBC% auto 0.0 % [facility] NRBC Absolute 0.000 0.000 - 0.000 x10(3)/mc L [facility] Blood 11/18/2021 3:20 AM EDT 11/18/2021 3:40 AM EDT Narrative Resulting Agency Comment Spec In Lab Slim Smallwood MD HEMATOLOGY ORDERABLE S [facility] [place] [address] * (ABNORMAL) Basic Metabolic Panel (non-fasting) (11/18/2021 3:20 AM EDT) Glucose 200(H) 65 - 199 mg/dL [facility] Comment:Diabetes: >=200 mg/d L plus symptoms Blood Urea Nitrogen 15 10 - 20 mg/dL [facility] Creatinine 0.65(L) 0.80 - 1.50 mg/dL [facility] Sodium 139 135 - 145 mmol/L [facility] Potassium 4.0 3.5 - 5.0 mmol/L [facility] Comment: Please note: ??Patients with WBC >100,000 may have falsely elevated Potassium levels. ??For accurate Potassium quantification in these patients send serum separator tube (gold top) for subsequent determinations. ??Contact the Clinical Chemistry Laboratory if there are any questions. Chloride 104 98 - 107 mmol/L [facility] Carbon Dioxide 26 22 - 31 mmol/L [facility] Anion Gap 9 5 - 15 mmol/L [facility] Calcium 8.9 8.5 - 10.5 mg/dL [facility] Est Glomerular Filtration Rate 99 >=60 mL/min/1. 73 m?? [facility] [...] Lab Ismael Wu MD CHEMISTRY ORDERABLE S [facility] [place] [address] * (ABNORMAL) POCT Glucose (11/18/2021 3:19 AM EDT) Glucose, POC 206(H) 65 - 199 mg/dL [facility] Comment: Supplemental ranges: <140 mg/dL before meals <180 mg/dL all other times of the day Blood 11/18/2021 3:19 AM EDT 11/18/2021 3:19 AM EDT Ismael Wu MD POINT OF CARE TEST ORDERABLES Performing Organization Address [facility] Co de Phone Number [facility] [place] [address] * (ABNORMAL) POCT Glucose (11/18/2021 12:05 AM EDT) Glucose, POC 239(H) 65 - 199 mg/dL [facility] Comment: Supplemental ranges: <140 mg/dL before meals <180 mg/dL all other times of the day Blood 11/18/2021 12:0 5 AM EDT 11/18/2021 12:05 AM EDT Ismael Wu MD POINT OF CARE TEST ORDERABLES Performing Organization Address [facility] de Phone Number [facility] [place] [address] * XR Pelvis (Generic) (11/17/2021 8:01 PM [...] who have questions please contact the health day care attendant that requested your imaging first. ? Electronically signed by: Deidra Adams MD, [facility] ([phone]), at 11/18/2021 4:46 PM Narrative 11/18/2021 4:46 [...] patients who have questions please contactthe health day care attendant that requested your imaging first. Electronically signed by: Deidra Adams MD, [facility]([phone]), at 11/18/2021 4:46 PM Ismael Wu MD IMG DX ORDERABLES * (ABNORMAL) POCT Glucose (11/17/2021 7:43 PM EDT) Glucose, POC 216(H) 65 - 199 mg/dL [facility] Comment: Supplemental ranges: <140 mg/dL before meals <180 mg/dL all other times of the day Blood 11/17/2021 7:43 PM EDT 11/17/2021 7:43 PM EDT Ismael Wu MD POINT OF CARE TEST ORDERABLES [facility] [place] [address] * POCT Glucose (11/17/2021 4:50 PM EDT) Glucose, POC 178 65 - 199 mg/dL [facility] Comment: Supplemental ranges: <140 mg/dL before meals <180 mg/dL all other times of the day Blood 11/17/2021 4:50 PM EDT 11/17/2021 4:50 PM EDT Ismael Wu MD POINT OF CARE TEST ORDERABLES Performing Organization Address City/[facility]/ZIP Co de Phone Number [facility] [place] [address] * POCT Glucose (11/17/2021 1:14 PM EDT) Glucose, POC 134 65 - 199 mg/dL [facility] Comment: Supplemental ranges: <140 mg/dL before meals <180 mg/dL all other times of the day Blood 11/17/2021 1:14 PM EDT 11/17/2021 1:14 PM EDT Ismael Wu MD POINT OF CARE TEST ORDERABLES Performing Organization Address City/[facility]/ZIP Co de Phone Number [facility] [place] [address] * Type and Screen Validity (11/17/2021 1:00 PM EDT) T&S only valid at [facility] LABORATORY Comment:This Type and Screen result is only valid at the [facility] Blood 11/17/2021 1:00 PM EDT 11/17/2021 1:05 PM EDT Narrative Resulting Agency Comment Spec In Lab Eros Foss MD BLOOD BANK LAB ORDER JOSE FRANCISCO [facility] [place] [address] * ABORH Recheck Status (11/17/2021 1:00 PM EDT) ABORH Type Recheck Completed [facility] Blood 11/17/2021 1:00 PM EDT 11/17/2021 1:05 PM EDT Narrative Resulting Agency Comment Spec In Lab Eros Foss MD BLOOD BANK LAB ORDER JOSE FRANCISCO Performing Organization Address City/[facility]/ZIP Co de Phone Number [facility] [place] [address] * Antibody screen (11/17/2021 1:00 PM EDT) Ab Screen Interp Negative [facility] Expires at [id number] on: 11/20/2021 [facility] Blood 11/17/2021 1:00 PM EDT 11/17/2021 1:05 PM EDT Narrative Resulting Agency Comment Spec In Lab Eros Foss MD BLOOD BANK LAB ORDER JOSE FRANCISCO Performing Organization Address City/[facility]/ZIP Co de Phone Number [facility] [place] [address] * ABO/Rh Typing (11/17/2021 1:00 PM EDT) ABORH Type O Pos [facility] Blood 11/17/2021 1:00 PM EDT 11/17/2021 1:05 PM EDT Narrative Resulting Agency Comment Spec In Lab Eros Foss MD BLOOD BANK LAB ORDER JOSE FRANCISCO [facility] [place] [address] * (ABNORMAL) Hemogram (11/17/2021 1:00 PM EDT) White Blood Cell 3.4(L) 4.0 - 9.5 x10(3)/[facility] LABORATORY Red Blood Cell 3.74(L) 4.58 - 5.54 x10(6)/[facility] LABORATORY Hemoglobin 11.8(L) 13.7 - 16.5 g/dL [facility] Hematocrit 34.7(L) 40.5 - 48.5 % [facility] Mean Cell Volume 92.8 82.9 - 93.1 fL [facility] Mean Cell Hemoglobin 31.6 27.5 - 32.1 pg [facility] Mean Cell Hemoglobin Concentration 34.0 32.0 - 35.7 g/dL [facility] Platelet 159 145 - 357 x10(3)/[facility] LABORATORY RDW Standard Deviation 43.9 36.0 - 45.0 [facility] LABORATORY RDW coefficient of variation 13.0 11.4 - 13.8 % [facility] Mean Platelet Volume 9.7 7.6 - 12.9 fL [facility] NRBC% auto 0.0 % [facility] NRBC Absolute 0.000 0.000 - 0.000 x10(3)/[facility] LABORATORY Blood 11/17/2021 1:00 PM EDT 11/17/2021 1:10 PM EDT Narrative Resulting Agency Comment Spec In Lab Ismael Wu MD HEMATOLOGY ORDERABL ES [facility] [place] [address] * SCAN DOC: IMPLANTABLE DEVICES (11/17/2021 12:00 AM EDT) Narrative 11/17/2021 12:00 AM EDT Ordered by an unspecified provider. 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, pelvic region and thigh Right leg pain Pain in limb documented in this encounter Admitting Diagnoses Diagnosis [...] Given 11/17/2021 10:06 PM EDT 80 mg BUpivacaine (Sensorcaine) (2.5 mg/mL) 0.25% injection ONCE PRN, Starting on Sat11/17/21 at 1406, Until Sat11/18/21 at 1826, Intra-Operative (Intra-Procedure), Routine Given 11/17/2021 2:06 PM EDT 10 mLs 19- Surgical Site carvediloL (Coreg) tablet 25 mg 25 mg, Oral, 2 TIMES DAILY WITH MEALS, First dose on Sat11/18/21 at 0800, Until Discontinued, hold if SBP<105 or HR<55, Routine Given 11/18/2021 9:04 AM EDT 25 mg celecoxib (CeleBREX) capsule 200 mg 200 mg, [...] Oral, DAILY WITH BREAKFAST, First dose on 11/18/21 at 0800, Until Discontinued, Consider holding dose [...] weight of tube = 37.5 grams.), Routine insulin lispro (HumaLOG;Admelog) (100 unit/mL) subcutaneous injection [...] Given 11/17/2021 10:05 PM EDT 17 g povidone-iodine (Betadine Ophthalmic Prep) 5 % ophthalmic solution ONCE PRN, Starting on Sat11/17/21 at 1407, Until 11/18/21 at 1826, Intra-Operative (Intra-Procedure), Routine Given 11/17/2021 2:07 PM EDT 30 mLs 19- Surgical Site [id number]-[id number]-[id number] IDine-ketorolac (LISANDRA) (2.46 mg-0.005 mg-0.0008 mg-0.3 mg/mL) cb-articular inj soln in sodium chloride ONCE PRN, Starting on Sat11/17/21 at 1602, Until 11/18/21 at 1826, Intra-Operative (Intra-Procedure), Routine Given 11/17/2021 4:02 PM EDT 50 mLs 19- Surgical Site senna-docusate (Pericolace) 8.6-50 mg per tablet 2 [...] Given 11/17/2021 10:15 PM EDT 5 mLs tamsulosin (Flomax) capsule 0.4 mg 0.4 mg, Oral, NIGHTLY, First dose on Sat11/17/21 at 2200, Until Discontinued, DO NOT CRUSH OR OPEN, Routine Given 11/17/2021 10:06 PM EDT 0.4 mg timoloL (Timoptic) 0.5 % ophthalmic solution 1 drop 1 drop, Both Eyes, DAILY, First dose on Sat11/18/21 at 0900, [...] Day at 1300)2206 (Given - Provider: Floridalma Barron RN) 0645 (Given - Provider: Floridamla Barron RN)1434 (Given - Provider: Mariana Villafuerte RN) amLODIPine (Norvasc) tablet 5 mg 5 mg, Oral, DAILY, First dose on 11/18/21 at 0900, Until Discontinued, hold if SBP<120, Routine 09 (Not Given - Provider: Mariana Villafuerte RN - Reason: Patient/family refused - Comment: bp low) aspirin EC tablet 81 mg 81 mg, Oral, DAILY, First dose on 11/18/21 at 0900, Until Discontinued, Routine 09 (Given - Provid er: Mariana Villafuerte RN) atorvastatin (Lipitor) tablet 80 mg 80 mg, Oral, EVERY EVENING, First dose on Sat11/17/21 at 2200, Until Discontinued, Routine 2205 (Given - Provider: Floridalma Barron RN) carvediloL (Coreg) tablet 25 mg 25 mg, Oral, 2 TIMES DAILY WITH MEALS, First dose on 11/18/21 at 0800, Until Discontinued, hold if SBP<105 [...] 2205 (Given - Provider: Floridalma Barron RN) 903 (Given - Provider: Mariana Villafuerte RN) folic [...] ONCE, 1 dose, On Sat11/17/21 at 2315 2486 (Given - Provider: Floridalma Barron RN) insulin lispro (HumaLOG;Admelog) (100 unit/mL) subcutaneous injection vial 0-8 Units 0-8 Units, Subcutaneous, 3 TIMES DAILY WITH MEALS, First dose on 11/18/21 at 0800, Until Discontinued, MEAL ASSOCIATED Give [...] Discontinued, DO NOT CRUSH OR OPEN, Routine 221 (Given - Provider: Floridalma Barron RN) lisinopriL (Zestril) tablet 40 mg 40 mg, Oral, DAILY, First dose on Sat11/18/21 at 0900, Until Discontinued, Routine 09 (Given - Provid er: Mariana Villafuerte RN) pantoprazole EC (Protonix) tablet 20 mg 20 mg, Oral, DAILY, First dose on Sat11/18/21 at 0900, Until Discontinued, DO NOT CRUSH OR OPEN 09 (Given - Provid er: Mariana Villafuerte RN) polyethylene glycoL (Miralax) packet 17 g 17 g, Oral, 2 TIMES DAILY, First dose on Sat11/17/21 at 2200, Until Discontinued, Routine 2204 (Given - Provider: Floridalma Barron RN) 0903 (Given - Provider: Mariana Villafuerte RN) rivaroxaban [...] 2204 (Given - Provider: Floridalma Barron RN) 0904 [...] on 11/18/21 at 0900, Until Discontinued, Routine 902 (Given - Provid er: Mariana [...] 30 MIN PRN, Starting on Sat11/17/21 at 213, Until 11/18/21 at 1826, Low blood sugar, [...] 6 HOURS PRN, Starting on Sat11/17/21 at 2138, Until 11/18/21 at 1826, Pain, Routine 0022 (Given - Provid er: Floridalma Barron, AYE)0649 (Given - Provider: Floridalma Barron, AYE) lidocaine (Xylocaine) 1% (10 mg/mL) injection 3 mg 3 mg (0.3 mL), Subcutaneous, ONCE PRN, 1 dose, Starting on Sat11/17/21 at 2138, Until 11/18/21 at 1826, for discomfort with [...] Oral, EVERY 8 HOURS PRN, Starting on 11/17/21 [...] (See Alternative - Provider: Janki Mathis RN) 0152 (Given - Provider: Floridalma Barron RN)1026 (Given - Provider: Mariana Villafuerte RN) oxyCODONE (Roxicodone) tablet 15 mg(Linked Group 5) 15 mg, Oral, EVERY 4 HOURS PRN, Starting on 11/17/21 at 1906, Until 11/18/21 at 1826, Pain, severe pain or opiate tolerant patient (7-10), Do not start patient with 15 mg dose. Do not give 15 mg if patient is opiate niave., Routine 1912 (See Alternative - Provider: Janki Mathis RN) 0152 (See Alternative - Provider: Floridalma Barron RN)1026 (See Alternative - Provider: Mariana Villafuerte RN) oxyCODONE (Roxicodone) tablet 5 mg(Linked Group 5) 5 mg, Oral, EVERY 4 HOURS PRN, Starting on Sat11/17/21 at 1906, Until 11/18/21 at 1826, Pain, mild pain (1-3), May give additional 5 mg in 30 minutes once if pain not relieved., Routine 1913 (Given - Provider: Janki Mathis, RN) 0152 (See Alternative - Provider: Floridalma Barron, RN)1026 (See Alternative - Provider: Mariana Villafuerte RN) povidone-iodine (Betadine Ophthalmic Prep) 5 % ophthalmic solution (CANCELED) ONCE PRN, Starting on Sat11/17/21 at 1407, Until 11/18/21 at 1826, Intra-Operative (Intra-Procedure), Routine 1407 (Given - Provider: Ismael Wu MD - Comment: added to 500ml NACL for irrigation) [id number] oNIDine-ketorolac (LISANDRA) (2.46 mg-0.005 mg-0.0008 mg-0.3 mg/mL) cb-articular inj soln in sodium chloride (CANCELED) ONCE PRN, Starting on Sat11/17/21 at 1602, Until 11/18/21 at 1826, Intra-Operative (Intra-Procedure), Routine 1602 (Given - Provider: Ismael Wu MD) sodium chloride 0.9 % (flush) (BD PosiFlush Normal Saline 0.9) flush 5-20 mL 5-20 mL, Intravenous, EVERY 1 MIN PRN, Starting on Sat11/17/21 at 2139, Until 11/18/21 at 1826, flush, Flush pertains to all indwelling lines. Flush per protocol found in the job aid using the link provided on this medication record., Recovery (Recovery-Hospital Unit), Routine Linked Groups Order Group 1: gabapentin (Neurontin) capsule 600 mgJump to med 600 mg, Oral, NIGHTLY, 2 doses, First dose on Sat11/17/21 at 2100, Last dose on 11/18/21 at 2100, Routine Followed by gabapentin (Neurontin) [...] documented in this encounter Care Teams Senior Officer Relationship Specialty Start Date End Date Alo Carey DO [address] [place] [address] [place] [phone] PCP - General Internal Medicine 08/31/20 07/03/23 documented as of this encounter
--- OUTSIDE RECORDS SUMMARY | 2023-10-06 00:40 | XMS_ITS | Encounter Summary ---
Author Organization [facility] Address [facility] Elena [facility] [place] [address] Care Team Providers Care Sales Property Manager Name Role Phone Alo Carey DO Primary Care Provider [phone] Reason for Visit * Reason Onset Date Comments Pre Procedure Call 11/14/2021 Encounter Details Date Type Department Care Team (Late st Contact Info) Description 11/14/2021 [place] [address] Ismael Wu MD [facility] [place] [address] Pre Procedure Call Social History Tobacco Use Types Packs/Day Years [...] encounter Miscellaneous Notes * Telephone Encounter - Christy Lira LPN - 11/15/2021 11:30 AM EDT Spoke with Marian to let him know that he can take all of his medications the day of surgery except for the metformin and glimepiride per Dr. Mai's instruction. I also let him know that he should bring his cpap with him on the day of surgery. Marian did ask if there was a time scheduled for his surgery. I did let him know that he would receive a call the afternoon before confirming what time to be here on the day of surgery as well as a confirmation of what medications he can and cannot take on the day of his procedure. Marian and his repeated back what he could not take on themorning of surgery. Both Wero and his had no further questions at this time. * Telephone Encounter - Marva Gonzales - 11/14/2021 2:44 PM EDTSummary: PRE OP QUESTION Who is calling? MARIAN Best call back number: [phone] Best time to call back between 8:00 am & 5:00 pm: ANY, YASSINE Can we leave a message? yes When is your procedure? 11/17/21 Who is your surgeon? LONDON What procedure are you having? JIMI What is the question you would like to ask the clinical care team? Marian would like a call back YASSINE to discuss which meds he should be stopping. He did not have a pre-op appointment. Last surgery he told them he had stopped certain medicines the day before and they sated he should have stopped them 5 days prior. Please call YASSINE to discuss. Thank you. Your message will be forwarded to the clinical care team for review. documented in this encounter Plan of Treatment Upcoming Encounters Date Type Department Care Team (Late st Contact Info) Description 10/11/2023 10:00 AM EDT Tech [place] [address] Giacomo Queen 10/11/2023 11:15 AM EDT Office [place] [address] Basim Barr MD [facility] [place] [address] 10/18/2023 9:00 AM EDT Office Visit Hematology/Oncology at [address] [phone] Cl Hess MD [facility] [place] [address] Yessi Renee [address] HEMATOLOGY AND ONCOLOGY [place], [place] [phone] 10/18/2023 9:30 AM EDT Infusion Hematology Oncology at [address] [phone] 10/24/2023 9:30 AM EDT Scheduled View Only Radiation Oncology at [address] [phone] Rad , [place] 10/24/2023 10:00 AM EDT Office Visit Radiation Oncology at [address] [phone] Bigg Peters MD [address] [place] [address] DR RADIATION ONCOLOGY [place], [place] [id number] 11/01/2023 9:00 AM EDT Office Visit Hematology/Oncology at [address] [phone] Cl Hess MD [facility] [place] [address] Yessi Renee [address] HEMATOLOGY AND ONCOLOGY [place], [place] [address] 11/01/2023 9:30 AM EDT Infusion Hematology Oncology at [address] [phone] 12/24/2023 1:00 PM EDT TH Visit (TeleHealth) Radiation Oncology at [address] [phone] Ping Moore PA [facility] [place] [address] documented as of this encounter Visit Diagnoses Not on filedocumented in this encounter Care Teams Sales Property Manager Relationship Specialty Start Date End Date Alo Carey DO [address] [place] [address] [place] [phone] PCP - General Internal Medicine 08/31/20 07/03/23 documented as of this encounter
--- OUTSIDE RECORDS SUMMARY | 2023-10-06 00:40 | XMS_ITS | Encounter Summary ---
[place] [address] Care Team Providers Care Casing Fluid Tender Name Role Phone Alo Carey DO Primary Care Provider [phone] Reason for Visit * Reason Onset Date Comments Other 08/17/2021 Pre Procedure Call 08/17/2021 Encounter Details Date Type Department Care Team (Late st Contact Info) Description 08/17/2021 [place] [address] Ismael Wu MD [facility] DR [place] [address] Other; Pre Procedure Call Social History Tobacco Use [...] Miscellaneous Notes * Telephone Encounter - Margarita Echevarria - 08/18/2021 9:30 AM EDT I called and left a message for patient to call [phone] directly and schedule surgery with Dr. Wu. * Telephone Encounter - Radha Rivas - 08/17/2021 4:25 PM EDT Name of person calling: Wero What is the question: Patient wanting to know next steps as he has been cleared by his vascular provider to proceed with surgery. Best number to reach the caller: [phone] documented in this encounter Plan of Treatment Upcoming Encounters Date Type Department Care Team (Late st Contact Info) Description 10/11/2023 10:00 AM EDT Tech [place] [phone] Giacomo Queen 10/11/2023 11:15 AM EDT Office [place] [phone] Basim Barr MD [facility] [place] [address] 10/18/2023 9:00 AM EDT Office Visit Hematology/Oncology at [address] [phone] Cl Hess MD [facility] [place] [address] Yessi Renee APRN [address] [place] [address] DR HEMATOLOGY AND ONCOLOGY [place], [place] [phone] 10/18/2023 9:30 AM EDT Infusion Hematology Oncology at [address] [phone] 10/24/2023 9:30 AM EDT Scheduled View Only Radiation Oncology at [address] [phone] St [place] Champagne 10/24/2023 10:00 AM EDT Office Visit Radiation Oncology at [address] [phone] Bigg Peters MD [address] [place] [address] DR RADIATION ONCOLOGY [place], [place] [phone] 11/01/2023 9:00 AM EDT Office Visit Hematology/Oncology at [address] [phone] Cl Hess MD [facility] [place] [address] Yessi Renee APRN [address] [place] [address] DR HEMATOLOGY AND ONCOLOGY [place], [place] [phone] 11/01/2023 9:30 AM EDT Infusion Hematology Oncology at [address] [phone] 12/24/2023 1:00 PM EDT TH Visit (TeleHealth) Radiation Oncology at [address] [phone] Ping Moore PA [facility] DR HEMATOLOGY [place] [address] documented as of this encounter Visit Diagnoses Not on filedocumented in this encounter Care Teams Casing Fluid Tender Relationship Specialty Start Date End Date Alo Carey DO [address] [place] [address] [place] [phone] PCP - General Internal Medicine 08/31/20 07/03/23 documented as of this encounter
--- OUTSIDE RECORDS SUMMARY | 2023-10-06 00:40 | XMS_ITS | Encounter Summary ---
[place] [address] Care Team Providers Care Rate Reviewer Name Role Phone CherryAlo Lon RUTHERFORD Primary Care Provider [phone] Reason for Visit * Auth/Cert Specialty Diagnoses / Procedures Referred By Marques livingston Referred To Contact Diagnoses S/P total hip arthroplasty right hip OA Procedures PRO TOTAL HIP ARTHROPLASTY TOTAL HIP ARTHROPLASTY - POSTERIOR (WRVU 20.72) MODIFIER ACTIS HIP STEM DEPUY MODIFIER PINNACLE ACETABULUM DEPUY Ismael Wu MD [facility] [place] [address] [facility] Referral ID Status Reason Start Date Expiration Date Visits Re quested Visits Authorized [id number] 1 1 Encounter Details Date Type Department Care Team (Late st Contact Info) Description 11/17/2021 1:28 PM EDT Anesthesia Event [place] [address] Zeynep Mcallister MD [facility] [place] [address] Eros Foss MD [facility] [address] Anesthesia Record Procedure Summary Procedure Name Responsible Anesthesiologist Anesthesia Start Time Anesthesia Stop Time TOTAL HIP ARTHROPLASTY - POSTERIOR (WRVU 19.6) (Right: Hip) Zeynep Mcallister MD 11/17/21 1328 11/17/21 1650 Events Date Time Event Comment 11/17/2021 1328 AN Verify 1328 Start 1332 Spinal 1338 An Start Data 1350 Anesthesia Ready 1406 Procedure Start Incision 1639 an stop data 1650 Recovery or ICU Handoff Nisha ent care was transferred to the destination unit staff after review of the patient's medical history, current anesthetic/surgical status and plan, according to the Provider Handoff Checklist. 1650 Stop 1722 Meds Name Total Propofol INF 1,053.64 mg BUpivacaine 0.5% 3 mL PHENYLephrine 160 mcg Propofol 80 mg Tranexamic Acid 1,590 mg PHENYLephrine INF 2,180 mcg ceFAZolin 2 g Dexamethasone 4 mg fentaNYL 37.5 mcg Ondansetron 4 mg ketorolac (Toradol) (30 mg/mL) injection 30 mg Lactated Ringers 1,200 mL * Agents Name O2 Air N2O Sevoflurane (et) O2 Auxiliary Flowmeter 1 * Blood No blood administrations on file. Lines, Drains, and Airways Type Details Placement Removal (RETIRED) Peripheral IV Line - Single Lumen 11/17/21; 1307; metacarpal vein (top of hand), left; blcz-amf-qrllhj catheter system; Anatomical Landmarks; 20 gauge, 1 in length; LUISA; distraction, intradermal injection, tolerated well, appears comfortable; 11/18/21; 1545 11/17/21 1307 by Gab Amezcua RN 11/18/21 1545 by Mariana Villafuerte RN Arterial Line 11/17/21; 1329; radi al artery, left; 20 gauge; Ultrasound Guidance, Anatomical Landmarks; Yes - US guidance used but Image NOT saved; continuous blood pressure monitoring; Brie Laguna MD; Sterile Prep, Sterile Gloves; 1; radial artery, left; 11/17/21; 1747 11/17/21 1329 by Eros Foss MD 11/17/21 1747 by Rosalee Hummel, RN Incision 11/17/21; 1405; Righ t, posterior; hip; Right hip arthroplasty ; LDA not present upon assessment; 07/05/23 11/17/21 1405 by Meghna Fraser RN 07/05/23 0000 by Laura Walsh RN documented in this encounter Social History Tobacco [...] OR Notes * Anesthesia Postprocedure Evaluation - Eros Foss MD - 11/17/2021 4:50 PM EDT Department of Anesthesiology Post-procedure Note Patient: Wero Sadler Procedure Summary Date: 11/17/21 Room / Location: [facility] OR [address] [place] [address] MAIN OR Anesthesia Start: 1328 Anesthesia Stop: 1649 Procedures: TOTAL HIP ARTHROPLASTY - POSTERIOR (WRVU 20.72) (Right Hip) MODIFIER ACTIS HIP STEM DEPUY (Right Hip) MODIFIER PINNACLE ACETABULUM DEPUY (N/A Hip) Diagnosis: Primary osteoarthritis of right hip Right leg pain (right hip OA) Surgeons: Ismael Wu MD Responsible Provider: Zeynep Mcallister MD Anesthesia Type: spinal ASA Status: 3 All Anesthesia Providers: Anesthesiologist: Brie Laguna MD; Zeynep Mcallister MD Quality Assurance Representative: Eros Foss MD Vitals Value Taken Time BP 162/71 11/17/21 1645 Temp Pulse 42 11/17/21 1649 Resp 12 11/17/21 1649 SpO2 99 % 11/17/21 1649 Pain Level Vitals shown include unvalidated device data. Patient Location: PACU/[facility] Level of Consciousness: Awake and Alert Pain Management: Satisfactory Analgesia PONV: None Cardiovascular Status: At Baseline Respiratory Status: Stable Respiratory Status and Supplemental O2 (NC or FM) Postoperative Fluid Status: Intravascular EUvolemia Possible Anesthetic Complications: NONE apparent at time of evaluation Final Primary Anesthesia Type: Spinal (The anesthetic type performed was the same as planned.) Comments: Patient awake, alert, and oriented; actively conversing with staff. Denies pain or nauseacurrently. Spontaneous ventilation without issue. VSS. Full report given to HORN PLAYER. * Anesthesia Procedure Notes - Eros Foss MD - 11/17/2021 2:10 PM EDT Associated Order(s): Neuraxial Block Procedure: Neuraxial Block Primary Anesthetic Type: Spinal The patient was greeted. The sedation plan, its benefits, risks and alternatives were discussed with the patient. The patient has consented to the procedure. The medical history and chart were reviewed. The timeout was performed. Start time: 11/17/2021 1:28 PM End time: 11/17/2021 1:33 PM Patient Location: Block Room Baseline Information (JSQ-wcyo-agzdfoij entry for database use): Chronic Pain: Yes On opioids (any route) for 4 weeks or more: No CAD: Yes HTN: Yes DM: Yes Patient Prep Position: Sitting Prep: Hand Hygiene, Hat, Mask, Sterile Gloves, Chlorhexidine and Patient Draped Injection technique: single-shot Skin Anesthetic Lidocaine 1% 3 ml Procedure Technique Level of needle insertion: L3-4 Needle approach: midline Needle Type: [facility] Gauge: 25 Needle length: 3.5 in Number of attempts: 1 Medications: Date/Time: 11/17/2021 1:28 PM BUpivacaine 0.5% - Intrathecal 3 mL - 11/17/2021 1:28:00 PM Events/Notes Events: None Resident/DISH MACHINE OPERATOR: Eros Foss MD Second Resident/DISH MACHINE OPERATOR: SRNA: Fellow: Attending Physician: Brie Laguna MD ~~~~~~~~~~~~~~~~~~~~~~~~~~~~~~~~~~~~~~~~~~~~~~~~~~~~~~~~~~~~ * Anesthesia Preprocedure Evaluation - Eros Foss MD - 11/16/2021 5:51 PM EDT Pre-Anesthesia Evaluation for: Wero dale 71 y.o. male. Procedure(s): TOTAL HIP ARTHROPLASTY - POSTERIOR (WRVU 20.72) MODIFIER ACTIS HIP STEM DEPUY MODIFIER PINNACLE ACETABULUM DEPUY Patient Active Problem List Diagnosis Date Noted ??? Altered mental status, unspecified altered mental [...] Diabetes mellitus 07/22/2019 ??? Hypercholesterolemia 07/22/2019 ??? Hypertensive disorder 07/22/2019 Past Medical History: Diagnosis Date ??? 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 can not read. can see shadows. No vision in left eye since child saavedra accident. ??? Cancer prostate, colorectal ??? Claudication ??? Colon adenocarcinoma 2009 recieved chemo in [place] ??? Coronary artery disease ??? Coronary artery [...] prior ??? CAROTID-SUBCLAVIAN BYPASS GRAFT Bilateral 2017, 2019 ??? FEMORAL-TIBIAL BYPASS GRAFT Left 12/2017 ??? JOINT REPLACEMENT Left hip, left knee, right knee x 2 ??? PRO EXPLORATION NOT FOLLOWED BY SURG NECK ARTERY Right 07/14/2021 @EXPLORATION NOT FOLLOWED BY SURGICAL REPAIR, ARTERY; NECK (CAROTID OR SUBCLAVIAN) (WRVU 9.19) performed by Basim Barr MD at [facility] MAIN OR ??? PRO LASER VAPORIZATION SURGERY PROSTATE, COMPLETE Midline 02/02/2021 CYSTO, LASER TURP (WRVU 12.15) performed by Cayetano Engle MD at [facility] MAIN OR ??? PRO PLACE TRANSCATHETER STENT, CCA W EMBOLIC PROECT Right 07/14/2021 @TRANSCATH INTRAVASCULAR STENT,CAROTID,PERC,W\EMBOLIC PROT. (WRVU 18) performed by Basim Barr MD at [facility] MAIN OR ??? PRO TOTAL HIP ARTHROPLASTY Left 10/10/2020 TOTAL HIP ARTHROPLASTY - POSTERIOR (WRVU 20.72) performed by Ismael Wu MD at [facility] MAIN OR Social History Tobacco Use ??? Smoking status: Former Smoker Packs/day: 4.00 Years: 30.00 Pack years: 120.00 Types: Cigarettes Quit date: 1992 Years since quittin.7 ??? Smokeless tobacco: Never Used Substance Use Topics ??? Alcohol use: Yes Alcohol/week: 7.0 standard drinks Types: 7 Cans of beer per week Social History Substance and Sexual Activity Drug Use Not Currently Allergies Allergen Reactions ??? Cyclobenzaprine Other (See Comments) Extreme moodiness ??? Other [Unclassified Drug] Other (See Comments) Had reaction to a dye used during vascular procedure at [facility] in [place]: shaking Has tolerated MRI and CT contrast. Medications: MAR and/or home medications have been reviewed. Physical Exam: Preprocedure Vitals Current as of 11/16/21 1751 No BP, pulse, respiration, SpO2, or temperature recorded. Height: Weight: BMI: IBW: Airway Assessment: Mallampati: II TM distance: >3 FB Neck ROM: full Cardiovascular Assessment: Rhythm: regular Rate: normal Pulmonary Assessment: breath sounds clear to auscultation Dental Assessment: (+) upper dentures and lower dentures Misc Assessment: IV access: Peripheral line and A-line Last Filed Perioperative Cognitive Screening Value Time User AD8 Total Score: 0 05/04/2021 11:00 AM Delia Champagne RN AD8 Informant: Other Informant 05/04/2021 11:00 AM Delia Champagne RN 4AT TOTAL Score: 1 07/14/2021 1:30 PM Taylor Rivera RN CFS Frailty Score: 4 05/04/2021 11:00 AM Ashley Salazar RN Anesthesia Plan: ASA 3 spinal, 71 y.o., @WEIGHT@ male with symptomatic osteoarthritis presenting for elective right total hip arthroplasty w/ Dr. Wu. PMH significant for CAD s/p CABGx3 (2018, on Imdur and carvedilol), CVA s/p left CEA 11/2019 (on aspirin/clopidogrel), HTN (lisinopril, amlodipine), AION of right eye, prostate cancer s/p TURP, colorectal cancer, OLGA on CPAP, former smoker (120 pack years), PAD, DM2 PSH: Prior carotid-subclavian bipass, femoral-tibial bypass, left CEA, CABG x3, left JIMI Anesthetic hx: No reported prior complications with anesthesia. Has tolerated GA for left JIMI and TURP in recent years Airway hx: difficult mask (2 hand, 100mm OA), Air-Q 4.5, G2bV w/ Mac 4, 7.5mm ETT EK07/19/21 - normal sinus rhythm, no ST/T wave changes ECHO: 10/29/18 - normal LV size and function, EF 55-60%, RV dysfunction of unknown severity, mildly dilated LA Lab Results Component Value Date HGB 10.3 (L) 07/21/2021 PLATELET 229 07/21/2021 INR 1.1 07/18/2021 NA 136 07/21/2021 K 3.7 07/21/2021 CREATININE 0.65 (L) 07/21/2021 07/18/21 05/04/212032 1134 ABORH O Pos O Pos Allergies: -- Cyclobenzaprine -- Other (See Comments) -- Extreme moodiness -- Other (Unclassified Drug) -- Other (See Comments) -- Had reaction to a dye used during vascular procedure at [facility] in [place]: shakingHas tolerated MRI and CT contrast. NPO Status: Appropriate Anesthetic Plan: Spinal w/ sedation Backup GA Consider arterial line for invasive BP monitoring Region - Other Informed Consent: Anesthesia Screening documented in this encounter Miscellaneous Notes * Addendum Note - Brie Laguna MD - 11/27/2021 10:27 AM EDT Addendum created 11/27/21 1027 by Brie Laguna MD Attestation recorded in Intraprocedure, Cosign clinical note, Flowsheet accepted, Intraprocedure Attestations filed documented in this encounter Plan of Treatment Upcoming Encounters Date Type Department Care Team (Late st Contact Info) Description 10/11/2023 10:00 AM EDT Tech Visit [place] [address] Giacomo Queen 10/11/2023 11:15 AM EDT Office [place] [address] Basim Barr MD [facility] [place] [place] [address] 10/18/2023 9:00 AM EDT Office Visit Hematology/Oncology at [address] [phone] Cl Hess MD [facility] [place] [address] Yessi Renee APRN [address] [place] [address] DR HEMATOLOGY AND ONCOLOGY [place], [place] [id number] 10/18/2023 9:30 AM EDT Infusion Hematology Oncology at [address] [phone] 10/24/2023 9:30 AM EDT Scheduled View Only Radiation Oncology at [address] [phone] Jeronimo NurseSt Deutsch 10/24/2023 10:00 AM EDT Office Visit Radiation Oncology at [address] [phone] Bigg Peters MD [address] [place] [address] DR RADIATION ONCOLOGY [place], [place] [id number] 11/01/2023 9:00 AM EDT Office Visit Hematology/Oncology at [address] [phone] Cl Hess MD [facility] [place] [address] Yessi Renee APRN [address] [place] [address] DR HEMATOLOGY AND ONCOLOGY [place], [place] [address] 11/01/2023 9:30 AM EDT Infusion Hematology Oncology at [address] [phone] 12/24/2023 1:00 PM EDT TH Visit (TeleHealth) Radiation Oncology at [address] [phone] Ping Moore PA [facility] [place] [address] documented as of this encounter Procedures Procedure Name Priority Date/Time Associated Diagnosis Comments ANE NEURAXIAL APS USE Routine 11/17/2021 1:28 PM EDT documented in this encounter Results * Neuraxial Block (11/17/2021 1:28 PM EDT) Narrative Brie Laguna MD - 11/17/2021 1:28 PM EDT Eros Foss MD ? 11/17/2021 ??2:11 PM Procedure: ?? Neuraxial Block Primary Anesthetic Type: Spinal The patient was greeted. The sedation plan, its benefits, risks and alternatives were discussed with the patient. ??The patient has consented to the procedure. ??The medical history and chart were reviewed. ??The timeout was performed. Start time: 11/17/2021 1:28 PM End time: 11/17/2021 1:33 PM Patient Location: Block Room Baseline Information (JZY-[id number]-[id number] entry for database use): Chronic Pain: ??Yes On opioids (any route) for 4 weeks or more: ??No CAD: ??Yes HTN: ??Yes DM: ??Yes Patient Prep Position: Sitting Prep: Hand Hygiene, Hat, Mask, Sterile Gloves, Chlorhexidine and Patient Draped Injection technique: single-shot Skin Anesthetic Lidocaine 1% ??3 ml Procedure Technique Level of needle insertion: L3-4 Needle approach: midline Needle Type: [facility] Gauge: 25 Needle length: 3.5 in Number of attempts: 1 Medications: Date/Time: ??11/17/2021 1:28 PM BUpivacaine 0.5% - Intrathecal 3 mL - 11/17/2021 1:28:00 PM Events/Notes Events: ??None Resident/DISH MACHINE OPERATOR: ? Eros Foss MD Second Resident/DISH MACHINE OPERATOR: SRNA: ? Fellow: ? Attending Physician: ? Brie Laguna MD ~~~~~~~~~~~~~~~~~~~~~~~~~~~~~~~~~~~~~~~~~~~~~~~~~~~~~~~~~~~~ Brie Laguna MD [facility] [employer] documented in this encounter Visit Diagnoses Not on filedocumented in this encounter Administered Medications Inactive Administered Medications - up to 3 most recent administrations Medication Order MAR Action Action Date Dose Rate Site BUpivacaine (pf) (Marcaine) (5 mg/mL) 0.5% injection Intrathecal, Starting on Sat11/17/21 at 1328, Until Sat11/17/21 at 1328, Anesthesia Intra-op, Routine Given 11/17/2021 1:28 PM EDT 3 mLs ceFAZolin (Ancef) 1 g in dextrose 5% 50 mL infusion Intravenous, PRN, Starting on Sat11/17/21 at 1402, Until Sat11/17/21 at 1650, Administer over 30 Minutes, Anesthesia Intra-op Given 11/17/2021 2:02 PM EDT 2 g dexAMETHasone (Decadron) injection Intravenous, PRN, Starting on Sat11/17/21 at 1416, Until Sat11/17/21 at 1650, Anesthesia Intra-op, Routine Given 11/17/2021 2:16 PM EDT 4 mg fentaNYL (pf) (50 mcg/mL) multi-dose injection Intravenous, PRN, Starting on Sat11/17/21 at 1541, Until Sat11/17/21 at 1650, Anesthesia Intra-op, Routine Given 11/17/2021 4:37 PM EDT 12.5 mcg Given 11/17/2021 3:41 PM EDT 25 mcg ketorolac (Toradol) (30 mg/mL) injection Intravenous, PRN, Starting on Sat11/17/21 at 1553, Until Sat11/17/21 at 1650, Anesthesia Intra-op, Routine Given 11/17/2021 3:53 PM EDT 30 mg lactated ringers infusion Intravenous, CONTINUOUS PRN, Starting on Sat11/17/21 at 1327, Until Sat11/17/21 at 1650, Anesthesia Intra-op New Bag 11/17/2021 3:44 PM EDT New Bag 11/17/2021 1:27 PM EDT ondansetron (pf) (Zofran) (2 mg/mL) injection Intravenous, PRN, Starting on Sat11/17/21 at 1553, Until Sat11/17/21 at 1650, Anesthesia Intra-op, Routine Given 11/17/2021 3:53 PM EDT 4 mg PHENYLephrine (Jose-Synephrine) (80 mcg/mL) in sodium chloride 0.9% 250 mL infusion Intravenous, CONTINUOUS PRN, Starting on Sat11/17/21 at 1416, Until Sat11/17/21 at 1650, Anesthesia Intra-op, Routine Rate/Dose Change 11/17/2021 4:05 PM EDT 10 mcg/min 7.5 mL/hr Restarted 11/17/2021 3:53 PM EDT 20 mcg/min 15 mL/hr Rate/Dose Change 11/17/2021 3:23 PM EDT 20 mcg/min 15 mL/h r PHENYLephrine in NS (PF) (JOSE-SYNEPHRINE) 0.8 mg/10 mL (80 mcg/mL) multi-dose injection Syrg Intravenous, PRN, Starting on Sat11/17/21 at 1411, Until Sat11/17/21 at 1650, Anesthesia Intra-op, Routine Given 11/17/2021 2:16 PM EDT 80 mcg Given 11/17/2021 2:11 PM EDT 80 mcg propofoL (Diprivan) (10 mg/mL) infusion Intravenous, CONTINUOUS PRN, Starting on Sat11/17/21 at 1349, Until Sat11/17/21 at 1650, Anesthesia Intra-op, Routine Rate/Dose Change 11/17/2021 4:02 PM EDT 40 mcg/kg/min 25.44 mL/hr Rate/Dose Change 11/17/2021 3:54 PM EDT 60 mcg/kg/min 38.1 6 mL/hr Rate/Dose Change 11/17/2021 3:40 PM EDT 70 mcg/kg/min 44.5 2 mL/hr propofoL (Diprivan) 10 mg/mL bolus injection (Anesthesia) Intravenous, PRN, Starting on Sat11/17/21 at 1348, Until Sat11/17/21 at 1650, Anesthesia Intra-op Given 11/17/2021 2:31 PM EDT 30 mg Given 11/17/2021 1:48 PM EDT 50 mg tranexamic acid (Cyklokapron) (100 mg/mL) IV bolus Intravenous, Administer over 8 Hours, PRN, Starting on Sat11/17/21 at 1410, Until Sat11/17/21 at 1650, Anesthesia Intra-op, Routine Given 11/17/2021 2:10 PM EDT 1,590 mg documented in this encounter Care Teams Rate Reviewer Relationship Specialty Start Date End Date Alo Carey DO [address] [place] [address] [place] [address] PCP - General Internal Medicine 08/31/20 07/03/23 documented as of this encounter
--- OUTSIDE RECORDS SUMMARY | 2023-10-06 00:40 | XMS_ITS | Encounter Summary ---
[place] [address] Care Team Providers Care Hat Measurer Name Role Phone Alo Carey Primary Care Provider [phone] Encounter Details Date Type Department Care Team (Latest Contact Info) Description 08/15/2021 8:30 AM EDT Tech [place] [phone] Lizeth Baig Stenosis of carotid artery, unspecified laterality; History of cerebrovascular accident; History of carotid endarterectomy Social History Tobacco Use Types Packs/Day Years [...] AM EDT Tech [place] [phone] Giacomo Queen 10/11/2023 11:15 AM EDT Office [place] [phone] Basim Barr MD [facility] [place] [address] 10/18/2023 9:00 AM EDT Office Visit Hematology/Oncology at [address] [phone] Cl Hess MD [facility] [place] [address] Yess[address] Renee [address] HEMATOLOGY AND ONCOLOGY [place], [place] [phone] 10/18/2023 9:30 AM EDT Infusion Hematology Oncology at [address] [phone] 10/24/2023 9:30 AM EDT Scheduled View Only Radiation Oncology at [address] [phone] Rad Nurse, [facility] 10/24/2023 10:00 AM EDT Office Visit Radiation Oncology at [address] [phone] Bigg Peters MD [address] [place] [address] DR RADIATION ONCOLOGY [place], [place] [phone] 11/01/2023 9:00 AM EDT Office Visit Hematology/Oncology at [address] [phone] Cl Hess MD [facility] [place] [address] Yessi Renee [address] HEMATOLOGY AND ONCOLOGY [place], [place] [address] 11/01/2023 9:30 AM EDT Infusion Hematology Oncology at [address] [phone] 12/24/2023 1:00 PM EDT TH Visit (TeleHealth) Radiation Oncology at [address] [phone] Ping Moore PA [facility] [place] [address] documented as of this encounter Procedures Procedure Name Priority Date/Time Associated Diagnosis Comments CAROTID DUPLEX, BILATERAL Routine 08/15/2021 8:29 AM EDT Stenosis of carotid artery, unspecified laterality History of cerebrovascular accident History of carotid endarterectomy documented in this encounter Results * Carotid Duplex, Bilateral (08/15/2021 8:29 AM EDT) VB Text Report Department: Vascular Surgery Lab Patient: [id number] (THA JARRETT) CPT: 35165 Referring Physician: AL HUERTA ?? Phone: Indications: S/p RT TCAR, ? patency/stenosis Findings: Stent 1 - Pre ? PSV (cm/s): 32 ? EDV (cm/s): 11 ? Location: Right CCA Distal Stent 1 - Prox ? PSV (cm/s): 45 ? EDV (cm/s): 13 Stent 1 - Mid ? PSV (cm/s): 47 ? EDV (cm/s): 13 Stent 1 - Distal ? PSV (cm/s): 52 ? EDV (cm/s): 14 Stent 1 - Post ? PSV (cm/s): 74 ? EDV (cm/s): 19 ? Location: Right ICA Prox ICA Proximal, Right ? PSV (cm/s): 74 ? EDV (cm/s): 19 ? ICA/CCA: 2.3 ? Plaque Structure: Echogenic ? Plaque Surface: Smooth ? %Stenosis: <15% ICA Distal, Right ? PSV (cm/s): 56 ? EDV (cm/s): 19 ? ICA/CCA: 1.8 CCA Distal, Right ? PSV (cm/s): 32 ? EDV (cm/s): 11 ? %Stenosis: <50% CCA Proximal, Right ? PSV (cm/s): 58 ? EDV (cm/s): 11 External Carotid Artery, Right ? PSV (cm/s): 36 ? EDV (cm/s): 6 ? %Stenosis: <50% Vertebral, Right ? PSV (cm/s): 47 ? EDV (cm/s): 12 ? Direction of Flow: Antegrade ICA Proximal, Left ? PSV (cm/s): 97 ? EDV (cm/s): 15 ? ICA/CCA: 1.0 ? Plaque Structure: Echogenic ? Plaque Surface: Irregular ? %Stenosis: 16-49% ICA Distal, Left ? PSV (cm/s): 73 ? EDV (cm/s): 22 ? ICA/CCA: 0.7 CCA Distal, Left ? PSV (cm/s): 98 ? EDV (cm/s): 16 ? %Stenosis: <50% CCA Proximal, Left ? PSV (cm/s): 98 ? EDV (cm/s): 14 External Carotid Artery, Left ? PSV (cm/s): 141 ? EDV (cm/s): 0 ? %Stenosis: <50% Vertebral, Left ? PSV (cm/s): 47 ? EDV (cm/s): 8 ? Direction of Flow: Antegrade Interpretation: RIGHT: There [...] ?? 3.10 ? 16-49% ? 95 ?1.10 Current Exam ? <15% ? 74 ?2.30 ? 16-49% ? 97 ?1.00 Electronically Signed by: BASIM BARR on 2021-08-18 02:13:26 PM [facility] VB Text Report End of Report [facility] 08/15/2021 8:29 AM EDT Al Huerta APRN VASCULAR ORDERABLES [facility] documented in this encounter Visit Diagnoses Diagnosis Stenosis of carotid artery, unspecified laterality History of cerebrovascular accident Transient ischemic attack (TIA), and cerebral infarction without residual deficits History of carotid endarterectomy Other postprocedural status documented in this encounter Care Teams Hat Measurer Relationship Specialty Start Date End Date Alo Carey DO [address] [place] [address] [place] [phone] PCP - General Internal Medicine 08/31/20 07/03/23 documented as of this encounter
--- OUTSIDE RECORDS SUMMARY | 2023-10-06 00:40 | XMS_ITS | Encounter Summary ---
Author Organization [facility] [place] [address] Care Team Providers Care Lead Teller Name Role Phone Alo Carey DO Primary Care Provider Encounter Details Date Type Department Care Team (Late st Contact Info) Description 09/05/2021 12:45 PM EDT Notes Only Radiation Oncology at [address] [phone] Bigg Peters MD [address] [place] [address] DR [place] [address] Social History Tobacco Use Types [...] AM EDT Tech [place] [phone] Giacomo Queen 10/11/2023 11:15 AM EDT Office [place] [phone] Basim Barr MD [facility] [place] [address] 10/18/2023 9:00 AM EDT Office Visit Hematology/Oncology at [address] [phone] 71 Cl Hess MD [facility] [place] [address] Yessi Renee [address] HEMATOLOGY AND ONCOLOGY [place], [place] [address] [phone] 10/18/2023 9:30 AM EDT Infusion Hematology Oncology at [address] [phone] 10/24/2023 9:30 AM EDT Scheduled View Only Radiation Oncology at [address] [phone] Rad Nurse, St J 10/24/2023 10:00 AM EDT Office Visit Radiation Oncology at [address] [address] Bigg Peters MD [address] [place] [address] DR RADIATION ONCOLOGY [place], [place] [address] [phone] 11/01/2023 9:00 AM EDT Office Visit Hematology/Oncology at [address] [phone] Cl Hess MD [facility] [place] [address] Yessi Renee [address] HEMATOLOGY AND ONCOLOGY [place], [place] [address] [phone] 11/01/2023 9:30 AM EDT Infusion Hematology Oncology at [address] [address] 12/24/2023 1:00 PM EDT TH Visit (TeleHealth) Radiation Oncology at [address] [phone] Ping Moore PA [facility] DR HEMATOLOGY [place] [address] documented as of this encounter Visit Diagnoses Not on filedocumented in this encounter Care Teams Lead Teller Relationship Specialty Start Date End Date Alo Carey DO [address] [place] [address] [place] [phone] PCP - General Internal Medicine 08/31/20 07/03/23 documented as of this encounter
--- OUTSIDE RECORDS SUMMARY | 2023-10-06 00:40 | XMS_ITS | Encounter Summary ---
[facility] Organization [facility] [place] [address] Care Team Providers Care Softwood Faller Name Role Phone Alo Carey Primary Care Provider [phone] Reason for Visit * Reason Onset Date Comments Pre Procedure Call 10/02/2021 Encounter Details Date Type Department Care Team (Late st Contact Info) Description 10/02/2021 Telephone [place] [address] Ismael Wu MD [facility] [place] [address] Pre Procedure Call Social History Tobacco Use [...] encounter Miscellaneous Notes * Telephone Encounter - Marva Gonzales - 10/02/2021 12:12 PM EDTSummary: PRE OP APPTS Who is calling? MARIAN Best call back number: [phone] Best time to call back between 8:00 am & 5:00 pm: ANY Can we leave a message? yes When is your procedure? 10/19/21 Who is your surgeon? [place] What procedure are you having? TOTAL HIP ARTHROPLASTY - POSTERIOR (WRVU 20.72) - Right MODIFIER ACTIS HIP STEM DEPUY - Right MODIFIER PINNACLE ACETABULUM DEPUY What is the question you would like to ask the clinical care team? Wero has no pre-op appointments scheduled. He will be flying in to [place] on 10/10/21and could be at [facility] after 2:00 pm if we could schedule them the same day to avoid any more travelling for him. Thank you for calling and working with him on this. documented in this encounter Plan of Treatment Upcoming Encounters Date Type Department Care Team (Late st Contact Info) Description 10/11/2023 10:00 AM EDT Tech [place] [address] Giacomo Queen 10/11/2023 11:15 AM EDT Office Visit [place] [address] Basim Barr MD [facility] [place] [address] 10/18/2023 9:00 AM EDT Office Visit Hematology/Oncology at [address] [phone] Cl Hess MD [facility] [place] [address] Yessi Renee APRN [address] [place] [address] DR HEMATOLOGY AND ONCOLOGY [place], [place] [phone] 10/18/2023 9:30 AM EDT Infusion Hematology Oncology at [address] [phone] 10/24/2023 9:30 AM EDT Scheduled View Only Radiation Oncology at [address] [phone] Jeronimo Nurse [place] 10/24/2023 10:00 AM EDT Office Visit Radiation Oncology at [address] [phone] Bigg Peters MD [address] [place] [address] DR RADIATION ONCOLOGY [place], [place] [address] 11/01/2023 9:00 AM EDT Office Visit Hematology/Oncology at [address] [phone] Cl Hess MD [facility] [place] [address] Yessi Renee APRN [address] [place] [address] DR HEMATOLOGY AND ONCOLOGY [place], [place] [id number] 11/01/2023 9:30 AM EDT Infusion Hematology Oncology at [address] [phone] 12/24/2023 1:00 PM EDT TH Visit (TeleHealth) Radiation Oncology at [address] [phone] Ping Moore PA [facility] DR [place] [address] documented as of this encounter Visit Diagnoses Not on filedocumented in this encounter Care Teams Softwood Faller Relationship Specialty Start Date End Date Alo Carey DO [address] [place] [address] [place] [phone] PCP - General Internal Medicine 08/31/20 07/03/23 documented as of this encounter
--- OUTSIDE RECORDS SUMMARY | 2023-10-06 00:40 | XMS_ITS | Encounter Summary ---
Author Organization [facility] Address [facility] [place] [address] Care Team Providers Care Bulk Loader Name Role Phone CherryAlo Lon RUTHERFORD Primary Care Provider [phone] Reason for Referral * Consultation (Routine) - Closed Specialty Diagnoses / Procedures Referred By Marques livingston Referred To Contact Diagnoses History of cerebrovascular accident Basim Barr MD [facility] [place] [address] Eye Care, [address] [place] [address] Referral ID Status Reason Start Date Expiration Date V isits Requested Visits Authorized [id number] Closed Consult, Test & Treat 08/28/2021 02/24/2022 5 5 Encounter Details Date Type Department Care Team (Late st Contact Info) Description 08/28/2021 Orders [place] [address] Yessi Walter RN History of cerebrovascular accident Social History Tobacco Use Types Packs/Day Years [...] AM EDT Tech [place] [address] Giacomo Queen 10/11/2023 11:15 AM EDT Office [place] [phone] Basim Barr MD [facility] [place] [address] 10/18/2023 9:00 AM EDT Office Visit Hematology/Oncology at [address] [phone] Cl Hess MD [facility] [place] [address] Yessi Renee APRN [address] [place] [address] DR HEMATOLOGY AND ONCOLOGY [place], [place] [id number] 10/18/2023 9:30 AM EDT Infusion Hematology Oncology at [address] [phone] 10/24/2023 9:30 AM EDT Scheduled View Only Radiation Oncology at [address] [phone] St La Nena Champagne 10/24/2023 10:00 AM EDT Office Visit Radiation Oncology at [address] [phone] Bigg Peters MD [address] [place] [address] DR RADIATION ONCOLOGY [place], [place] [id number] 11/01/2023 9:00 AM EDT Office Visit Hematology/Oncology at [address] [phone] Cl Hess MD [facility] [place] [address] Yessi Renee APRN [address] [place] [address] DR HEMATOLOGY AND ONCOLOGY [place], [place] 39[address] 11/01/2023 9:30 AM EDT Infusion Hematology Oncology at [address] [phone] 12/24/2023 1:00 PM EDT TH Visit (TeleHealth) Radiation Oncology at [address] [phone] Ping Moore PA [facility] DR HEMATOLOGY [place] [address] Scheduled Referrals Name Type Priority Associated Diagnoses Orde r Schedule Referral to Ophthalmology Outpatient Referral Routine History of cerebrovascular accident Ordered: 08/28/2021 documented as of this encounter Visit Diagnoses Diagnosis History of cerebrovascular accident Transient ischemic attack (TIA), and cerebral infarction without residual deficits documented in this encounter Care Teams Bulk Loader Relationship Specialty Start Date End Date Alo Carey DO [address] [place] [address] [place] [phone] PCP - General Internal Medicine 08/31/20 07/03/23 documented as of this encounter
--- OUTSIDE RECORDS SUMMARY | 2023-10-06 00:40 | XMS_ITS | Encounter Summary ---
[place] [address] Care Team Providers Care Appeals Board Referee Name Role Phone Alo Carey DO Primary Care Provider [phone] Encounter Details Date Type Department Care Team (Late st Contact Info) Description 09/01/2021 Telephone [place] [address] Erika Carranza RN Social History Tobacco Use Types Packs/Day [...] encounter Miscellaneous Notes * Telephone Encounter - Erika Carranza RN - 09/01/2021 2:05 PM EDT Referral and demographics faxed documented in this encounter Plan of Treatment Upcoming Encounters Date Type Department Care Team (Late st Contact Info) Description 10/11/2023 10:00 AM EDT Tech [place] [address] Giacomo Queen 10/11/2023 11:15 AM EDT Office Visit [place] [address] Basim Barr MD [facility] [place] [place] [address] 10/18/2023 9:00 AM EDT Office Visit Hematology/Oncology at [address] [phone] Cl Hess MD [facility] [place] [address] Yessi Renee, [address] HEMATOLOGY AND ONCOLOGY [place], [place] [id number] 10/18/2023 9:30 AM EDT Infusion Hematology Oncology at [address] [phone] 10/24/2023 9:30 AM EDT Scheduled View Only Radiation Oncology at [address] [phone] Jeronimo Bowen, [facility] 10/24/2023 10:00 AM EDT Office Visit Radiation Oncology at [address] [phone] Bigg Peters MD [address] [place] [address] DR RADIATION ONCOLOGY [place], [place] 9[address]29 11/01/2023 9:00 AM EDT Office Visit Hematology/Oncology at [address] [phone] Cl Hess MD [facility] [place] [address] Yessi Renee [address] HEMATOLOGY AND ONCOLOGY [place], [place] [address] 11/01/2023 9:30 AM EDT Infusion Hematology Oncology at [address] [phone] 12/24/2023 1:00 PM EDT TH Visit (TeleHealth) Radiation Oncology at [address] [phone] Pign Moore PA [facility] [place] [address] documented as of this encounter Visit Diagnoses Not on filedocumented in this encounter Care Teams Appeals Board Referee Relationship Specialty Start Date End Date Alo Carey DO [address] [place] [address] [place] [phone] PCP - General Internal Medicine 08/31/20 07/03/23 documented as of this encounter
--- OUTSIDE RECORDS SUMMARY | 2023-10-06 00:40 | XMS_ITS | Encounter Summary ---
[place] [address] Care Team Providers Care Wildlife Officer Name Role Phone Alo Carey Primary Care Provider [phone] Encounter Details Date Type Department Care Team (Late st Contact Info) Description 08/31/2021 1:00 PM EDT Office Visit Radiation Oncology at [address] [phone] Bigg Peters MD [address] [place] [address] [place] [address] Malignant neoplasm of prostate Social [...] Sign Reading Time Taken Comments Blood Pressure 149/70 08/31/2021 1:00 PM EDT Pulse 67 08/31/2021 1:00 PM EDT Temperature 37 ??C (98.6 ??F) 08/31/2021 1:00 PM EDT Respiratory Rate 18 08/31/2021 1:00 PM EDT Oxygen Saturation 98% 08/31/2021 1:00 PM EDT Inhaled Oxygen Concentration - - Weight 106.2 kg (234 lb 3.2 oz) 08/31/2021 1:00 PM EDT Height - - Body Mass Index 32.66 08/15/2021 9:08 AM EDT documented in this encounter Progress Notes * Bigg Peters MD - 08/31/2021 1:00 PM EDT Images from the original note were not included. [facility] Medicine Radiation Oncology Radiation Oncology On-treatment Visit [...] / 50.4Gy in 28 fractions Current Dose: 62.5 Gy in 25 fractions (prostate dose) Interval Clinical Course General No changes since last seen. GI Loose stools better this week though is still not following LRD. Nocturia 2-3x/nt at baseline - now more like 1-2x night, since starting Flomax 0.4mg qhs. Daytime sx are also better. He has occasional daytime leakage. Pain: Pain score today is 0/10. He [...] Take 2 g by mouth daily. Yes timoloL (Timoptic) 0.5 % Drops erythromycin (Romycin) 5 mg/gram (0.5 %) Ointment acetaminophen (Tylenol) 500 mg Tablet Take 2 tablets by mouth every 6 hours. Exam BP 149/70 Pulse 67 Temp 37 ??C (98.6 ??F) Resp 18 Wt 106.2 kg (234 lb 3.2 oz) SpO2 98% BMI 32.66 kg/m?? General: Appears well, in no distress Abdomen: Soft, non tender Imaging/Labs Interval setup imaging has been checked and approved. See [employer] for details. 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 Completes next week. Next Lupron / RV September 21 LUTS Cont flomax 0.4mg qhs, Aleve <= 1tab BID. Diarrhea: Rec low residue diet. Imodium PRN. Followup: Return to clinic next week for on treatment check. No orders of the defined types were placed in this encounter. ??? National [employer] (NCI) [facility] ??? [employer] Commission on Cancer (ACS Joanna) Accredited Cancer Program ??? [employer] (A[employer]) Accredited Radiation Oncology Program documented in this encounter Plan of Treatment Upcoming Encounters Date Type Department Care Team (Late st Contact Info) Description 10/11/2023 10:00 AM EDT Tech [place] [phone] Giacomo Queen 10/11/2023 11:15 AM EDT Office [place] [phone] Basim Barr MD [facility] [place] [address] 10/18/2023 9:00 AM EDT Office Visit Hematology/Oncology at [address] [phone] Cl Hess MD [facility] [place] [address] Yessi Renee APRN [address] [place] [address] DR HEMATOLOGY AND ONCOLOGY [place], [place] [address] 10/18/2023 9:30 AM EDT Infusion Hematology Oncology at [address] [phone] 10/24/2023 9:30 AM EDT Scheduled View Only Radiation Oncology at [address] [phone] St La Nena Champagne 10/24/2023 10:00 AM EDT Office Visit Radiation Oncology at [address] [phone] Bigg Peters MD [address] [place] [address] DR RADIATION ONCOLOGY [place], [place] [id number] 11/01/2023 9:00 AM EDT Office Visit Hematology/Oncology at [address] [phone] Cl Hess MD [facility] [place] [address] Yessi Renee APRN [address] [place] [address] DR HEMATOLOGY AND ONCOLOGY [place], [place] [id number] 11/01/2023 9:30 AM EDT Infusion Hematology Oncology at [address] [phone] 12/24/2023 1:00 PM EDT TH Visit (TeleHealth) Radiation Oncology at [address] [phone] Ping Moore PA [facility] DR [place] [address] documented as of this encounter Visit Diagnoses Diagnosis Malignant neoplasm of prostate documented in this encounter Care Teams Wildlife Officer Relationship Specialty Start Date End Date Alo Carey DO [address] [place] [address] [place] [address] PCP - General Internal Medicine 08/31/20 07/03/23 documented as of this encounter
--- OUTSIDE RECORDS SUMMARY | 2023-10-06 00:40 | XMS_ITS | Encounter Summary ---
[place] [address] Care Team Providers Care C Engineer Name Role Phone Alo Carey Primary Care Provider [phone] Encounter Details Date Type Department Care Team (Late st Contact Info) Description 08/02/2021 Telephone [place] [phone] Kaelyn Capps Social History Tobacco Use Types Packs/Day Years [...] encounter Miscellaneous Notes * Telephone Encounter - Kaelyn Capps - 08/02/2021 10:12 AM EDT Patient due for B CAR DUP and hck w/ Dr Barr. Was scheduled for 08/15/21, but brother called 07/18/21 and said patient couldn't come on that day due to daily cancer treatments. Cancelled appt on 08/15/21, but family called today and stated that they thought appt was still scheduled. Called and left msg on to call back and reschedule. documented in this encounter Plan of Treatment Upcoming Encounters Date Type Department Care Team (Late st Contact Info) Description 10/11/2023 10:00 AM EDT Tech [place] [phone] Giacomo Queen 10/11/2023 11:15 AM EDT Office Visit [place] [phone] Basim Barr MD [facility] [place] [address] 10/18/2023 9:00 AM EDT Office Visit Hematology/Oncology at [address] [phone] Cl Hess MD [facility] [place] [address] Yessi Renee APRN [address] [place] [address] DR HEMATOLOGY AND ONCOLOGY [place], [place] [id number] 10/18/2023 9:30 AM EDT Infusion Hematology Oncology at [address] [phone] 10/24/2023 9:30 AM EDT Scheduled View Only Radiation Oncology at [address] [phone] St La Nena Champagne 10/24/2023 10:00 AM EDT Office Visit Radiation Oncology at [address] [phone] Bigg Peters MD [address] [place] [address] DR RADIATION ONCOLOGY [place], [place] [id number] 11/01/2023 9:00 AM EDT Office Visit Hematology/Oncology at [address] [phone] Cl Hess MD [facility] [place] [place] [address] Yessi Renee APRN [address] [place] [address] DR HEMATOLOGY AND ONCOLOGY [place], [place] [id number] 11/01/2023 9:30 AM EDT Infusion Hematology Oncology at [address] [phone] 12/24/2023 1:00 PM EDT TH Visit (TeleHealth) Radiation Oncology at [address] [phone] Ping Moore PA [facility] DR HEMATOLOGY [place] [address] documented as of this encounter Visit Diagnoses Not on filedocumented in this encounter Care Teams C Engineer Relationship Specialty Start Date End Date Alo Carey DO [address] [place] [address] [place] [address] PCP - General Internal Medicine 08/31/20 07/03/23 documented as of this encounter
--- OUTSIDE RECORDS SUMMARY | 2023-10-06 00:40 | XMS_ITS | Encounter Summary ---
Author Organization [facility] [place] [address] Care Team Providers Care Video Software Engineer Name Role Phone Alo Carey DO Primary Care Provider [phone] Encounter Details Date Type Department Care Team (Late st Contact Info) Description 10/12/2021 Orders [place] [phone] Ismael Wu MD [facility] [place] [address] Primary osteoarthritis of right hip Social History Tobacco Use Types Packs/Day Years [...] AM EDT Tech [place] [address] Giacomo Queen 10/11/2023 11:15 AM EDT Office [place] [address] Basim Barr MD [facility] [place] [address] 10/18/2023 9:00 AM EDT Office Visit Hematology/Oncology at [address] [phone] Cl Hess MD [facility] [place] [address] Yessi Renee [address] HEMATOLOGY AND ONCOLOGY [place], [place] [address] [phone] 10/18/2023 9:30 AM EDT Infusion Hematology Oncology at [address] [phone] 10/24/2023 9:30 AM EDT Scheduled View Only Radiation Oncology at [address] [phone] Rad Nurse, [place] 10/24/2023 10:00 AM EDT Office Visit Radiation Oncology at [address] [phone] 10 Bigg Peters MD [address] [place] [address] DR RADIATION ONCOLOGY [place], [place] [address] 11/01/2023 9:00 AM EDT Office Visit Hematology/Oncology at [address] [phone] Cl Hess MD [facility] [place] [address] Yessi Renee [address] HEMATOLOGY AND ONCOLOGY [place], [place] [address] 11/01/2023 9:30 AM EDT Infusion Hematology Oncology at [address] [phone] 98 12/24/2023 1:00 PM EDT TH Visit (TeleHealth) Radiation Oncology at [address] [phone] Ping Moore PA [facility] DR [place] [address] documented as of this encounter Visit Diagnoses Diagnosis Primary osteoarthritis of right hip Primary localized osteoarthrosis, pelvic region and thigh documented in this encounter Care Teams Video Software Engineer Relationship Specialty Start Date End Date Alo Carey DO [address] [place] [address] [place] [phone] PCP - General Internal Medicine 08/31/20 07/03/23 documented as of this encounter
--- OUTSIDE RECORDS SUMMARY | 2023-10-06 00:40 | XMS_ITS | Encounter Summary ---
[facility] [place] [address] Care Team Providers Care Law Examiner Name Role Phone Alo Carey DO Primary Care Provider [phone] Reason for Visit * Reason Onset Date Comments Medication Problem 07/24/2021 Encounter Details Date Type Department Care Team (Late st Contact Info) Description 07/24/2021 Telephone [place] [address] Sandra Murphy MD [facility] [place] [address] Medication Problem Social History Tobacco Use Types Packs/Day Years [...] encounter Miscellaneous Notes * Telephone Encounter - Danica Blunt CCMA - 07/26/2021 10:06 AM EDT This provider is not associated with . The patient or the pharmacy will need to reach out to PCP * Telephone Encounter - Inga Harrison - 07/24/2021 4:10 PM EDT Pharmacy or caller: Yessi from [facility] Medication: Thera M Message: Pharmacy stated that Thera M is on back order until September, but the enhanced is not, please call to let them know what to fill. Did you contact your pharmacy?: n documented in this encounter Plan of Treatment Upcoming Encounters Date Type Department Care Team (Late st Contact Info) Description 10/11/2023 10:00 AM EDT Tech [place] [phone] Giacomo Queen 10/11/2023 11:15 AM EDT Office [place] [phone] Basim Barr MD [facility] [place] [address] 10/18/2023 9:00 AM EDT Office Visit Hematology/Oncology at [address] [phone] Cl Hess MD [facility] [place] [address] Yessi Renee APRN [address] [place] [address] DR HEMATOLOGY AND ONCOLOGY [place], [place] [address] 10/18/2023 9:30 AM EDT Infusion Hematology Oncology at [address] [phone] 10/24/2023 9:30 AM EDT Scheduled View Only Radiation Oncology at [address] [phone] [facility] [place] 10/24/2023 10:00 AM EDT Office Visit Radiation Oncology at [address] [phone] Bigg Peters MD [address] [place] [address] DR RADIATION ONCOLOGY [place], [place] [id number] 11/01/2023 9:00 AM EDT Office Visit Hematology/Oncology at [address] [phone] Cl Hess MD [facility] [place] [address] Yessi Renee APRN [address] [place] [address] DR HEMATOLOGY AND ONCOLOGY [place], [place] [id number] 11/01/2023 9:30 AM EDT Infusion Hematology Oncology at [address] [phone] 12/24/2023 1:00 PM EDT TH Visit (TeleHealth) Radiation Oncology at [address] [phone] Ping Moore PA [facility] DR HEMATOLOGY [place] [address] documented as of this encounter Visit Diagnoses Not on filedocumented in this encounter Care Teams Law Examiner Relationship Specialty Start Date End Date Alo Carey DO [address] [place] [address] [place] [address] PCP - General Internal Medicine 08/31/20 07/03/23 documented as of this encounter
--- OUTSIDE RECORDS SUMMARY | 2023-10-06 00:40 | XMS_ITS | Encounter Summary ---
[facility] Organization [facility] [place] [address] Care Team Providers Care Pillow Cleaner Name Role Phone Alo Carey DO Primary Care Provider [phone] Encounter Details Date Type Department Care Team (Late st Contact Info) Description 09/06/2021 12:45 PM EDT Notes Only Radiation Oncology at [address] [phone] Bigg Peters MD [address] [place] [address] [place] [address] Social History Tobacco Use Types [...] as of this encounter Progress Notes * Bigg Peters MD - 09/06/2021 12:45 PM EDT Images from the original note were not included. [facility] Medicine Radiation Oncology Radiation Therapy Completion Note Patient ID ?? Patient name: Wero Sadler Date of : [...] 58.8Gy / 50.4Gy in 28 fractions ? Start Date End Date Elapsed Days 07/26/21 09/06/21 42d Clinical Course Treatment tolerance: With regard to side effects noted during radiotherapy, the patient tolerated treatment extremely well with no significant acute (Grade 3 or above) toxicity or unplanned breaks. Treatment response: The patient's response to treatment was undetermined, as he was largely asymptomatic at the time ofpresentation. Future assessment will be determined via serial PSA measurement. Follow up plan: Follow-up visit with Radiation Oncology in [facility] is scheduled for 09/21/21 for routine post-procedural symptom check; he has received instructions to call this office or seek the help of the local emergency room if any further problems should arise prior to followup. BIGG PETERS MD 09/07/2021 ??? National Cancer [place] (NCI) Comprehensive Cancer Center ??? [employer] [employer] Commission on Cancer (ACS Joanna) Accredited Cancer Program ??? [employer] (ACR) Accredited Radiation Oncology Program documented in this encounter Plan of Treatment Upcoming Encounters Date Type Department Care Team (Late st Contact Info) Description 10/11/2023 10:00 AM EDT Tech [place] [phone] Giacomo Queen 10/11/2023 11:15 AM EDT Office [place] [phone] Basim Barr MD [facility] [place] [address] 10/18/2023 9:00 AM EDT Office Visit Hematology/Oncology at [address] [phone] Cl Hess MD [facility] [place] [address] Yessi Renee [address] [place] [address] 10/18/2023 9:30 AM EDT Infusion Hematology Oncology at [address] [phone] 10/24/2023 9:30 AM EDT Scheduled View Only Radiation Oncology at [address] [phone] Rad Nurse, [facility] 10/24/2023 10:00 AM EDT Office Visit Radiation Oncology at [address] [phone] Bigg Peters MD [address] [place] [address] DR RADIATION ONCOLOGY [place], [place] [address] 11/01/2023 9:00 AM EDT Office Visit Hematology/Oncology at [address] [phone] Cl Hess MD [facility] [place] [place] [address] Yessi Renee [address] HEMATOLOGY AND ONCOLOGY [place], [place] [address] 11/01/2023 9:30 AM EDT Infusion Hematology Oncology at [address] [phone] 12/24/2023 1:00 PM EDT TH Visit (TeleHealth) Radiation Oncology at [address] [phone] Ping Moore PA [facility] DR HEMATOLOGY [place] [address] documented as of this encounter Visit Diagnoses Not on filedocumented in this encounter Care Teams Pillow Cleaner Relationship Specialty Start Date End Date Alo Carey DO [address] [place] [address] [place] [address] PCP - General Internal Medicine 08/31/20 07/03/23 documented as of this encounter
--- OUTSIDE RECORDS SUMMARY | 2023-10-06 00:40 | XMS_ITS | Encounter Summary ---
[place] [address] Care Team Providers Care Fireworks Assembler Name Role Phone Alo Carey Primary Care Provider [phone] Encounter Details Date Type Department Care Team (Late st Contact Info) Description 07/27/2021 3:15 PM EDT Office Visit Radiation Oncology at [address] [phone] Bigg Peters MD [address] [place] [address] [place] [address] Malignant neoplasm of prostate Social [...] Sign Reading Time Taken Comments Blood Pressure 102/52 07/27/2021 3:00 PM EDT Pulse 73 07/27/2021 3:00 PM EDT Temperature 36.6 ??C (97.9 ??F) 07/27/2021 3:00 PM ED T Respiratory Rate 18 07/27/2021 3:00 PM EDT Oxygen Saturation 97% 07/27/2021 3:00 PM EDT Inhaled Oxygen Concentration - - Weight 103.4 kg (228 lb) 07/27/2021 3:00 PM EDT Height - - Body Mass Index 31.8 07/18/2021 11:36 PM EDT documented in this encounter Progress Notes * Bigg Peters MD - 07/27/2021 3:15 PM EDT Images from the original note were not included. [facility] Medicine Radiation Oncology Radiation Oncology On-treatment [...] / 50.4Gy in 28 fractions Current Dose: 5 Gy in 2 fractions (prostate dose) Interval Clinical Course General No changes since last seen. Started this week. Recovering well from CEA and possible TIA complication. Also recent dog bite. Looking forward to dancing and singing [employer] at [employer] celebration this weekend. GI Diarrhea - attributes this to abx for dog bite. Nocturia 1 x/nt at baseline (post PVP 02/2021). Baseline IPSS history is listed below. Pain: Pain score today is 0/10. Prostate IPSS and DWAIN(Pt Entered): last 5 [...] confined to bed or chair Medications Medications 07/18/21 7584 Medication Sig Taking? folic acid (Folvite) 1 mg Tablet Take 1 tablet by mouth daily. multivitamin with minerals (Thera M) 9 mg iron-400 mcg Tablet Take 1 tablet by mouth daily. thiamine (thiamine) Take 2.5 tablets by mouth daily for 5 days, THEN 1 tablet daily for 25 days. lisinopriL (Zestril) 40 mg Tablet Take 1 tablet by mouth daily. isosorbide mononitrate CR (Imdur) 30 mg Tablet Sustained Release 24 hr Take 1 tablet by mouth nightly. atorvastatin (Lipitor) 80 mg Tablet Take 1 tablet by mouth every evening. acetaminophen (Tylenol) 500 mg Tablet Take 2 tablets by mouth every 6 hours. carvediloL (Coreg) 25 mg Tablet Take 25 mg by mouth 2 times daily (with meals). glimepiride (Amaryl) 1 mg Tablet daily. Will take BID on days of dexamethasone clopidogreL (Plavix) 75 mg Tablet daily. metFORMIN (FORTAMET) 500 mg Tablet Extended Rel 24 hr Take 1,000 mg by mouth 2 times daily (with meals). amLODIPine (Norvasc) 10 mg Tablet Take 10 mg by mouth daily. aspirin EC 81 mg Tablet, Delayed Release (E.C.) Take 81 mg by mouth daily. fish oil-omega-3 fatty acids 1,000 mg Capsule Take 2 g by mouth daily. Exam BP 102/52 Pulse 73 Temp 36.6 ??C (97.9 ??F) Resp 18 Wt 103.4 kg (228 lb) SpO2 97% BMI 31.80 kg/m?? General: Appears well, in no distress Abdomen: Soft, non tender Imaging/Labs Interval setup imaging has been checked and approved. See Aria for details. 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 Continue as planned. Next Lupron due September 21 Followup: Return to clinic next week for on treatment check. No orders of the defined types were placed in this encounter. ??? National Cancer [place] (NCI) Comprehensive Cancer Center ??? [place] [employer] Commission on Cancer (ACS Joanna) Accredited Cancer Program ??? [place] [employer] (ACR) Accredited Radiation Oncology Program documented in this encounter Plan of Treatment Upcoming Encounters Date Type Department Care Team (Late st Contact Info) Description 10/11/2023 10:00 AM EDT Tech Visit [place] [phone] Giacomo Queen 10/11/2023 11:15 AM EDT Office Visit [place] [phone] Basim Barr MD [facility] [place] [address] 10/18/2023 9:00 AM EDT Office Visit Hematology/Oncology at [address] [phone] Cl Hess MD [facility] [place] [place] [address] Yessi Renee APRN [address] [place] [address] DR HEMATOLOGY AND ONCOLOGY [place], [place] [phone] 10/18/2023 9:30 AM EDT Infusion Hematology Oncology at [address] [phone] 10/24/2023 9:30 AM EDT Scheduled View Only Radiation Oncology at [address] [phone] [facility] 10/24/2023 10:00 AM EDT Office Visit Radiation Oncology at [address] [phone] Bigg Peters MD [address] [place] [address] DR RADIATION ONCOLOGY [place], [place] [id number] 11/01/2023 9:00 AM EDT Office Visit Hematology/Oncology at [address] [phone] Cl Hess MD [facility] [place] [place] [address] Yessi Renee APRN [address] [place] [address] DR HEMATOLOGY AND ONCOLOGY [place], [place] 453599 11/01/2023 9:30 AM EDT Infusion Hematology Oncology at [address] [phone] 12/24/2023 1:00 PM EDT TH Visit (TeleHealth) Radiation Oncology at [address] [phone] Ping Moore PA [facility] DR HEMATOLOGY [place] [address] documented as of this encounter Visit Diagnoses Diagnosis Malignant neoplasm of prostate documented in this encounter Care Teams Fireworks Assembler Relationship Specialty Start Date End Date Alo Carey DO [address] [place] [address] [place] [address] PCP - General Internal Medicine 08/31/20 07/03/23 documented as of this encounter
--- OUTSIDE RECORDS SUMMARY | 2023-10-06 00:40 | XMS_ITS | Encounter Summary ---
Author Organization [facility] [place] [address] Care Team Providers Care Diplomatic Interpreter/Translator Name Role Phone Alo Carey Primary Care Provider [phone] Encounter Details Date Type Department Care Team (Late st Contact Info) Description 08/04/2021 1:15 PM EDT Office Visit Radiation Oncology at [address] [phone] Cl Mcbride MD [facility] [place] [address] Malignant neoplasm of prostate Social History Tobacco [...] Sign Reading Time Taken Comments Blood Pressure 150/77 08/04/2021 1:02 PM EDT Pulse 73 08/04/2021 1:02 PM EDT Temperature 36.7 ??C (98.1 ??F) 08/04/2021 1:02 PM ED T Respiratory Rate 18 08/04/2021 1:02 PM EDT Oxygen Saturation 98% 08/04/2021 1:02 PM EDT Inhaled Oxygen Concentration - - Weight 104.3 kg (230 lb) 08/04/2021 1:02 PM EDT Height 180.3 cm (5' 10.98) 08/04/2021 1:02 PM E DT Body Mass Index 32.09 08/04/2021 1:02 PM EDT documented in this encounter Progress Notes * Cl Mcbride MD - 08/04/2021 1:15 PM EDT Images from the original note [...] / 50.4Gy in 28 fractions Current Dose: 17.5 Gy in 7 fractions (prostate dose) Interval Clinical Course General No changes since last seen. Started this week. Recovering well from CEA and possible TIA complication. Also recent dog bite. Looking forward to dancing and singing [employer] at [employer] celebration this weekend. GI Diarrhea - attributes this to abx for dog bite. Nocturia many x/nt aggravated above typical baseline of 1-2 times; no dysuria Pain: Pain score today is 0/10. Prostate [...] confined to bed or chair Medications Medications 08/04/21 1307 Medication Sig Taking? folic acid (Folvite) 1 [...] meals). Yes glimepiride (Amaryl) 1 mg Tablet daily. Will take BID on days of dexamethasone Yes clopidogreL (Plavix) 75 mg Tablet daily. Yes metFORMIN (FORTAMET) 500 mg Tablet Extended Rel 24 hr Take 1,000 mg by mouth 2 times daily (with meals). Yes amLODIPine (Norvasc) 10 mg Tablet Take 80 mg by mouth daily. Yes aspirin EC 81 mg Tablet, Delayed Release (E.C.) Take 81 mg by mouth daily. Yes fish oil-omega-3 fatty acids 1,000 mg Capsule Take 2 g by mouth daily. Yes multivitamin with minerals (Thera M) 9 mg iron-400 mcg Tablet Take 1 tablet by mouth daily. Patient not taking: Reported on 08/04/2021 Exam BP 150/77 (Patient Position: Sitting) Pulse 73 Temp 36.7 ??C (98.1 ??F) (Temporal) Resp 18 Ht 180.3 cm (5' 10.98) Wt 104.3 kg (230 lb) SpO2 98% BMI 32.09 kg/m?? General: Appears well, in no distress Abdomen: Soft, non tender Imaging/Labs Interval setup imaging has been checked and approved. See Aria for details. 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 Next Lupron due September 21 Followup: Return to clinic next week for on treatment check. No orders of the defined types were placed in this encounter. ??? National Cancer [place] (NCI) Comprehensive Cancer Center ??? [place] [employer] Commission on Cancer (ACS Joanna) Accredited Cancer Program ??? [place] [employer] (ACR) Accredited Radiation Oncology Program documented in this encounter Plan of Treatment Upcoming Encounters Date Type Department Care Team (Late st Contact Info) Description 10/11/2023 10:00 AM EDT Tech [place] [address] Giacomo Queen 10/11/2023 11:15 AM EDT Office [place] [phone] Basim Barr MD [facility] [place] [address] 10/18/2023 9:00 AM EDT Office Visit Hematology/Oncology at [address] [phone] Cl Hess MD [facility] [place] [address] Yessi Renee, ARNOLD [address] [place] [address] DR HEMATOLOGY AND ONCOLOGY [place], [place] [id number] 10/18/2023 9:30 AM EDT Infusion Hematology Oncology at [address] [phone] 10/24/2023 9:30 AM EDT Scheduled View Only Radiation Oncology at [address] [phone] Rad Nurse, [facility] 10/24/2023 10:00 AM EDT Office Visit Radiation Oncology at [address] [phone] Bigg Peters MD [address] [place] [address] DR RADIATION ONCOLOGY [place], [place] [id number] 11/01/2023 9:00 AM EDT Office Visit Hematology/Oncology at [address] [phone] Cl Hess MD [facility] [place] [address] Yessi Renee APRN [address] [place] [address] DR HEMATOLOGY AND ONCOLOGY [place], [place] [id number] 11/01/2023 9:30 AM EDT Infusion Hematology Oncology at [address] [phone] 12/24/2023 1:00 PM EDT TH Visit (TeleHealth) Radiation Oncology at [address] [phone] Ping Moore PA [facility] DR HEMATOLOGY [place] [address] documented as of this encounter Visit Diagnoses Diagnosis Malignant neoplasm of prostate documented in this encounter Care Teams Diplomatic Interpreter/Translator Relationship Specialty Start Date End Date Alo Carey DO [address] [place] [address] [place] [phone] PCP - General Internal Medicine 08/31/20 07/03/23 documented as of this encounter
--- OUTSIDE RECORDS SUMMARY | 2023-10-06 00:40 | XMS_ITS | Encounter Summary ---
[place] [address] Care Team Providers Care Mail Carrier Technician Name Role Phone Alo Carey Primary Care Provider [phone] Encounter Details Date Type Department Care Team (Late st Contact Info) Description 08/10/2021 1:00 PM EDT Office Visit Radiation Oncology at [address] [phone] Bigg Peters MD [address] [place] [address] [place] [address] Malignant neoplasm of prostate Social [...] Sign Reading Time Taken Comments Blood Pressure 139/68 08/10/2021 12:55 PM EDT Pulse 78 08/10/2021 12:55 PM EDT Temperature 36.7 ??C (98.1 ??F) 08/10/2021 1 2:55 PM EDT Respiratory Rate 22 08/10/2021 12:5 5 PM EDT Oxygen Saturation 98% 08/10/2021 12: 55 PM EDT Inhaled Oxygen Concentration - - Weight 105.1 kg (231 lb 9.6 oz) 022 12:55 PM EDT Height - - Body Mass Index 32.32 08/04/2021 1:02 PM EDT documented in this encounter Progress Notes * Bigg Peters MD - 08/10/2021 1:00 PM EDT Images from the original note were not included. [facility] Medicine Radiation Oncology Radiation Oncology On-treatment [...] / 50.4Gy in 28 fractions Current Dose: 27.5 Gy in 11 fractions (prostate dose) Interval Clinical Course General No changes since last seen. GI Loose stools 2x/day. Recently completed abx for dog-bite. Nocturia 2-3x/nt, no dysuria Frequent daytime voiding. Feels as though it is incomplete. Pain: Pain score today is 0/10. Taking Aleve 2tabs BID for joint (left thumb, left knee) [...] Medications Medications 08/04/21 1307 Medication Sig Taking? naproxen sodium (ANAPROX) 220 mg Tablet Take 220 mg by mouth 2 times daily (with meals). Yes folic acid (Folvite) 1 mg Tablet [...] Take 1 mg by mouth daily. Yes clopidogreL (Plavix) 75 mg Tablet daily. [...] Take 2 g by mouth daily. Yes tamsulosin (Flomax) 0.4 mg Capsule Take 1 capsule by mouth nightly. multivitamin with minerals (Thera M) 9 mg iron-400 mcg Tablet Take 1 tablet by mouth daily. Patient not taking: No sig reported acetaminophen (Tylenol) 500 mg Tablet Take 2 tablets by mouth every 6 hours. Patient not taking: Reported on 08/10/2021 Exam BP 139/68 (Patient Position: Sitting) Pulse 78 Temp 36.7 ??C (98.1 ??F) (Temporal) Resp 22 Wt 105.1 kg (231 lb 9.6 oz) SpO2 98% BMI 32.32 kg/m?? General: Appears well, in no distress Abdomen: Soft, non tender Imaging/Labs Interval setup imaging has been checked and approved. See Aria for details. 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 Next Lupron due September 21 LUTS Rec flomax 0.4mg qhs. Cont Aleve but decrease to 1tab BID. Diarrhea: Rec probiotic, low residue diet. Imodium PRN. Followup: Return to clinic next week for on treatment check. No orders of the defined types were placed in this encounter. ??? National Cancer [place] (NCI) Comprehensive Cancer Center ??? [employer] [place] [employer] Commission on Cancer (ACS Joanna) Accredited Cancer Program ??? [employer] [place] [employer] (ACR) Accredited Radiation Oncology Program documented in this encounter Plan of Treatment Upcoming Encounters Date Type Department Care Team (Late st Contact Info) Description 10/11/2023 10:00 AM EDT Tech [place] [address] Giacomo Queen 10/11/2023 11:15 AM EDT Office Visit [place] [address] Basim Barr MD [facility] [place] [address] 10/18/2023 9:00 AM EDT Office Visit Hematology/Oncology at [address] [phone] Cl Hess MD [facility] [place] [address] Yessi Renee, ARNOLD [address] [place] [address] DR HEMATOLOGY AND ONCOLOGY [place], [place] [address] 10/18/2023 9:30 AM EDT Infusion Hematology Oncology at [address] [phone] 10/24/2023 9:30 AM EDT Scheduled View Only Radiation Oncology at [address] [phone] Jeronimo NurseSt Deutsch 10/24/2023 10:00 AM EDT Office Visit Radiation Oncology at [address] [phone] Bigg Peters MD [address] [place] [address] DR RADIATION ONCOLOGY [place], [place] 288[address] 11/01/2023 9:00 AM EDT Office Visit Hematology/Oncology at [address] [phone] Cl Hess MD [facility] [place] [address] Yessi Renee APRN [address] [place] [address] DR HEMATOLOGY AND ONCOLOGY [place], [place] [phone] 11/01/2023 9:30 AM EDT Infusion Hematology Oncology at [address] [phone] 12/24/2023 1:00 PM EDT TH Visit (TeleHealth) Radiation Oncology at [address] [phone] Ping Moore PA [facility] DR HEMATOLOGY [place] [address] documented as of this encounter Visit Diagnoses Diagnosis Malignant neoplasm of prostate documented in this encounter Care Teams Mail Carrier Technician Relationship Specialty Start Date End Date Alo Carey DO [address] [place] [address] [place] [phone] PCP - General Internal Medicine 08/31/20 07/03/23 documented as of this encounter
--- OUTSIDE RECORDS SUMMARY | 2023-10-06 00:41 | XMS_ITS | Encounter Summary ---
Author Organization [facility] [place] [address] Care Team Providers Care Electrician Underground Name Role Phone Alo Carey DO Primary Care Provider [phone] Encounter Details Date Type Department Care Team (Late st Contact Info) Description 07/18/2021 12:05 PM EDT Ancillary [place] [phone] Alo Carey DO [address] [place] [address] [place] [phone] Social History Tobacco Use Types Packs/Day Years [...] AM EDT Tech [place] [phone] Giacomo Queen 10/11/2023 11:15 AM EDT Office [place] [address] Basim Barr MD [facility] [place] [address] 10/18/2023 9:00 AM EDT Office Visit Hematology/Oncology at [address] [phone] Cl Hess MD [facility] [place] [address] Yessi Renee [address] HEMATOLOGY AND ONCOLOGY [place], [place] [address] [phone] 10/18/2023 9:30 AM EDT Infusion Hematology Oncology at [address] [phone] 10/24/2023 9:30 AM EDT Scheduled View Only Radiation Oncology at [address] [address] Rad Nurse, [facility] 10/24/2023 10:00 AM EDT Office Visit Radiation Oncology at [address] [phone] Bigg Peters MD [address] [place] [address] [place] [address] 11/01/2023 9:00 AM EDT Office Visit Hematology/Oncology at [address] [phone] Cl Hess MD [facility] [address] Yessi Renee [address] HEMATOLOGY AND ONCOLOGY [place], [place] [address] [phone] 11/01/2023 9:30 AM EDT Infusion Hematology Oncology at [address] [phone] 12/24/2023 1:00 PM EDT TH Visit (TeleHealth) Radiation Oncology at [address] [address] Ping Moore PA [facility] HEMATOLOGY [place] [address] documented as of this encounter Procedures Procedure Name Priority Date/Time Associated Diagnosis Comments FILM LIBRARY STORAGE ONLY DX CHEST Routine 07/18/2021 11:57 AM EDT documented in this encounter Results * Film Library- Storage Only DX Chest (07/18/2021 11:57 AM EDT) Narrative [facility] - 07/18/2021 11:57 AM EDT This exam is auto-finalizing. It's purpose is for storage only. Alo Carey DO [facility] FILM LIBRARY ORD ERABLES Performing Organization Address City/State/[facility] Co de Phone Number [place], [place] documented in this encounter Visit Diagnoses Not on filedocumented in this encounter Care Teams Electrician Underground Relationship Specialty Start Date End Date Alo Carey DO [address] [place] [address] [place] [address] PCP - General Internal Medicine 08/31/20 07/03/23 documented as of this encounter
--- OUTSIDE RECORDS SUMMARY | 2023-10-06 00:41 | XMS_ITS | Encounter Summary ---
Author Organization [facility] [place] [address] Care Team Providers Care Fire Prevention Bureau Captain Name Role Phone Alo Carey Primary Care Provider [phone] Encounter Details Date Type Department Care Team (Late st Contact Info) Description 07/12/2021 Telephone [place] [phone] Delia Templeton Social History Tobacco Use Types Packs/Day Years [...] encounter Miscellaneous Notes * Telephone Encounter - Delia Templeton - 07/12/2021 8:37 AM EDT Telephone call placed/received to schedule covid 19 testing with patient. Patient needs COVID test done at [facility] in [facility]. PLEASE FAX ORDERS TO [phone] Ordering provider: Dr. Basim Barr Testing Facility: [facility] Date of Testin07/12/21 Time of Testing: TBD Symptoms: Pre OP documented in this encounter Plan of Treatment Upcoming Encounters Date Type Department Care Team (Late st Contact Info) Description 10/11/2023 10:00 AM EDT Tech [place] [address] Giacomo Queen 10/11/2023 11:15 AM EDT Office [place] [address] Basim Barr MD [facility] [place] [address] 10/18/2023 9:00 AM EDT Office Visit Hematology/Oncology at [address] [phone] Cl Hess MD [facility] [place] [address] Yessi Renee APRN [address] [place] [address] DR HEMATOLOGY AND ONCOLOGY [place], [place] [phone] 10/18/2023 9:30 AM EDT Infusion Hematology Oncology at [address] [phone] 10/24/2023 9:30 AM EDT Scheduled View Only Radiation Oncology at [address] [phone] St La Nena Champagne 10/24/2023 10:00 AM EDT Office Visit Radiation Oncology at [address] [phone] Bigg Peters MD [address] [place] [address] DR RADIATION ONCOLOGY [place], [place] [id number] 11/01/2023 9:00 AM EDT Office Visit Hematology/Oncology at [address] [phone] Cl Hess MD [facility] [place] [address] Yessi Renee APRN [address] [place] [address] DR HEMATOLOGY AND ONCOLOGY [place], [place] [id number] 11/01/2023 9:30 AM EDT Infusion Hematology Oncology at [address] [phone] 12/24/2023 1:00 PM EDT TH Visit (TeleHealth) Radiation Oncology at [address] [phone] Ping Moore PA [facility] DR [place]OLOGY [place] [address] documented as of this encounter Visit Diagnoses Not on filedocumented in this encounter Care Teams Fire Prevention Bureau Captain Relationship Specialty Start Date End Date Alo Carey DO [address] [place] [address] [place] [phone] PCP - General Internal Medicine 08/31/20 07/03/23 documented as of this encounter
--- OUTSIDE RECORDS SUMMARY | 2023-10-06 00:41 | XMS_ITS | Encounter Summary ---
[place] [address] Care Team Providers Care Outdoor Adventure Guides Name Role Phone Alo Carey DO Primary Care Provider [phone] Encounter Details Date Type Department Care Team (Late st Contact Info) Description 07/18/2021 12:30 PM EDT Telehealth notes [place] [address] Telehealth, Neurology None Social History Tobacco Use Types Packs/Day [...] AM EDT Tech [place] [address] Giacomo Queen 10/11/2023 11:15 AM EDT Office [place] [phone] Basim Barr MD [facility] [place] [address] 10/18/2023 9:00 AM EDT Office Visit Hematology/Oncology at [address] [phone] Cl Hess MD [facility] [place] [address] Yessi Renee [address] HEMATOLOGY AND ONCOLOGY [place], [place] [phone] 10/18/2023 9:30 AM EDT Infusion Hematology Oncology at [address] [phone] 10/24/2023 9:30 AM EDT Scheduled View Only Radiation Oncology at [address] [phone] Rad , [facility] 10/24/2023 10:00 AM EDT Office Visit Radiation Oncology at [address] [phone] Bigg Peters MD [address] [place] [address] DR RADIATION ONCOLOGY [place], [place] [phone] 11/01/2023 9:00 AM EDT Office Visit Hematology/Oncology at [address] [phone] Cl Hess MD [facility] [place] [address] Yessi Renee, [address] HEMATOLOGY AND ONCOLOGY [place], [place] [address] 11/01/2023 9:30 AM EDT Infusion Hematology Oncology at [address] [phone] 12/24/2023 1:00 PM EDT TH Visit (TeleHealth) Radiation Oncology at [address] [address] Ping Moore PA [facility] DR HEMATOLOGY [place] [address] documented as of this encounter Visit Diagnoses Not on filedocumented in this encounter Care Teams Outdoor Adventure Guides Relationship Specialty Start Date End Date Alo Carey DO [address] [place] [address] [place] [phone] PCP - General Internal Medicine 08/31/20 07/03/23 documented as of this encounter
--- OUTSIDE RECORDS SUMMARY | 2023-10-06 00:41 | XMS_ITS | Encounter Summary ---
Author Organization [facility] [place] [address] Care Team Providers Care Anglesmith Name Role Phone YungAlo santiago Lon [place] Primary Care Provider [phone] Reason for Visit * Auth/Cert Specialty Diagnoses / Procedures Referred By Marques livingston Referred To Contact Diagnoses Stenosis of carotid artery, unspecified laterality symptomatic right ICA stenosis . Procedures PRO PLACE TRANSCATHETER STENT, CCA W EMBOLIC PROECT PRO EXPLORATION NOT FOLLOWED BY SURG NECK ARTERY @TRANSCATH INTRAVASCULAR STENT,CAROTID,PERC,W\EMBOLIC PROT. (WRVU 18) @EXPLORATION NOT FOLLOWED BY SURGICAL REPAIR, ARTERY; NECK (CAROTID OR SUBCLAVIAN) (WRVU 9.19) Referral ID Status Reason Start Date Expiration Date Visits Re quested Visits Authorized [id number] 1 1 Encounter Details Date Type Department Care Team (Late st Contact Info) Description 07/14/2021 8:41 AM EDT Anesthesia Event [place] [address] Jasmin Cunningham MD [facility] DR [place] [address] Radha Hogue CRNA [facility] DR [place] [address] Anesthesia Record Procedure Summary Procedure Name Responsible Anesthesiologist Anesthesia Start Time Anesthesia Stop Time @TRANSCATH INTRAVASCULAR STENT,CAROTID,PERC,W\E MBOLIC PROT. (WRVU 17.75) (Right: Neck) Jasmin Cunningham MD 07/14/21 0841 07/14/21 1103 Events Date Time Event Comment 07/14/2021 0830 0841 Start 0843 AN Verify 0843 An Start Data 0852 An Induction 0858 An Intubation 0904 Anesthesia Ready 0914 Handoff Intra-procedure anesthesia care was transferred after review of the patient's history, current anesthetic/surgical status and procedural plan, anticipated issues and expected post-operative course (including disposition.) Radha Duran, MARITZA 0935 Procedure Start 0948 Heparin 1003 Vascular Clamp ON 1014 Vascular Clamp OFF 1018 Protamine 1023 Quick Note Covid test sent 1057 Extubation/LMA Out 1059 an stop data 1103 Recovery or ICU Handoff Nisha ent care was transferred to the destination unit staff after review of the patient's medical history, current anesthetic/surgical status and plan, according to the Provider Handoff Checklist. 1103 Stop Meds Name Total fentaNYL 200 mcg IV Lidocaine 50 mg Propofol 150 mg Propofol INF 1,521.32 mg Rocuronium 80 mg PHENYLephrine 80 mcg ePHEDrine 10 mg Heparin 10,000 Units Protamine 50 mg Neostigmine 3 mg Glycopyrrolate 1.4 mg ceFAZolin (Ancef) 2 g in dextrose 5% 100 mL infusion 2 g PHENYLephrine INF 1,280 mcg Dexmedetomidine 20 mcg niCARdipine 0.5 mg ondansetron (pf) (Zofran) (2 mg/mL) inje ction 4 mg 0 mg Ondansetron 4 mg lactated ringers infusion 500 mL Lactated Ringers 1,000 mL * Agents Name O2 Air N2O * Blood No blood administrations on file. Lines, Drains, and Airways Type Details Placement Removal (RETIRED) Peripheral IV Line - Single Lumen 07/14/21; 0836; median cubital vein (antecubital fossa), left; 20 gauge; SDP RN; 07/17/21; 1113 07/14/21 0836 by Radha Hogue CRNA 07/17/21 1113 by Inga Joel, RN ETT Mask Ventilation: Difficult (3); ETT Type: Cuffed, Oral; ETT Size: 7.5 mm; Mac Blade: 4; Notes: Asleep, Stylette, Pre-O2, Cricoid Pressure; Attempts: 1; Laryngoscopy Grade: 2; ETT Placement Verified By: Capnometry, Visual; Secured at Teeth: 23 cm; Inserted by: BERTA anatomic pathology manager; Removal Date: 07/14/21; Removal Time: 1057 07/14/21 0858 by Radha Hogue, ADMITTING REPRESENTATIVE 07/14/21 1057 by Navin Ryan CRNA (RETIRED) Peripheral IV Line - Single Lumen 07/14/21; 0900; dorsal arch vein (top of hand), right; 16 gauge; Octavio; 07/17/21; 1112 07/14/21 0900 by Radha Hogue, MARITZA 07/17/21 111 by Inga Joel RN Urethral Catheter 07/14/21; 0900; Physician order; indwelling double lumen catheter; latex, silicone coated; 14; inserted at this facility (Inserted by Yashira Martinez RN); 1; 5; 10; drainage bag to dependent drainage; urethral catheter removed, per protocol/policy, tubing intact; 07/15/21; 0542 07/14/21 0900 by Yashira Martinez RN 07/15/21 0542 by Honey Farias RN Arterial Line 07/14/21; 0904; radi al artery, left; 20 gauge; Duran; Sterile Prep, Sterile Gloves; catheter intact, no longer indicated, removed per policy; 07/14/21; 1541 07/14/21 0904 by Radha Hogue, ADMITTING REPRESENTATIVE 07/14/21 1541 by Taylor Rivera RN Incision 07/14/21; 0936; Righ t, anterior; groin; non-laparascopic puncture; LDA not present upon assessment; 11/17/21 07/14/21 0936 by Yashira Martinez RN 11/17/21 0000 by Meghna Fraser RN Incision 07/14/21; 0936; Righ t; neck; LDA not present upon assessment; 11/17/21 07/14/21 0936 by Yashira Martinez RN 11/17/21 0000 by Meghna Fraser RN documented in this encounter Social History [...] OR Notes * Anesthesia Postprocedure Evaluation - Jasmin Cunningham MD - 07/14/2021 5:08 PM EDT Department of Anesthesiology Post-procedure Note Patient: Wero Sadler Procedure Summary Date: 07/14/21 Room / Location: [address] MAIN OR Anesthesia Start: 840 Anesthesia Stop: 1102 Procedures: @TRANSCATH INTRAVASCULAR STENT,CAROTID,PERC,W\EMBOLIC PROT. (WRVU 18) (Right Neck) @EXPLORATION NOT FOLLOWED BY SURGICAL REPAIR, ARTERY; NECK (CAROTID OR SUBCLAVIAN) (WRVU 9.19) (Right ) Diagnosis: Stenosis of carotid artery, unspecified laterality Pre-op testing (symptomatic right ICA stenosis) Surgeons: Basim Barr MD Responsible Provider: Jasmin Cunningham MD Anesthesia Type: general ASA Status: 3 All Anesthesia Providers: Anesthesiologist: Jasmin Cunningham MD ADMITTING REPRESENTATIVE: Navin Ryan CRNA; Radha Duran CRNA Vitals Value Taken Time BP 134/74 07/14/21 1553 Temp 36 ??C (96.8 ??F) 07/14/21 1530 Pulse 76 07/14/21 1553 Resp 15 07/14/21 1553 SpO2 97 % 07/14/21 1600 Pain Level 3 07/14/21 1530 Vitals shown include unvalidated device data. Patient Location: PACU/[facility] Level of Consciousness: Awake and Alert Pain Management: Satisfactory Analgesia PONV: None Cardiovascular Status: At Baseline Respiratory Status: Supplemental O2 (NC or FM) Postoperative Fluid Status: Intravascular EUvolemia Possible Anesthetic Complications: NONE apparent at time of evaluation Final Primary Anesthesia Type: General (The anesthetic type performed was the same as planned.) Comments: * Anesthesia Preprocedure Evaluation - Jasmin Cunningham MD - 07/13/2021 5:53 PM EDT Pre-Anesthesia Evaluation for: Wero Sadler a 71 y.o. male. Procedure(s): @TRANSCATH INTRAVASCULAR STENT,CAROTID,PERC,W\EMBOLIC PROT. (WRVU 18) @EXPLORATION NOT FOLLOWED BY SURGICAL REPAIR, ARTERY; NECK (CAROTID OR SUBCLAVIAN) (WRVU 9.19) Patient Active Problem List Diagnosis Date Noted ??? Stenosis of carotid artery, unspecified laterality [...] ??? Colon adenocarcinoma 2009 recieved chemo in [place] ??? Coronary artery disease ??? Coronary artery [...] knee, right knee x 2 ??? PRO LASER VAPORIZATION SURGERY PROSTATE, COMPLETE Midline 02/02/2021 CYSTO[facility] performed by Cayetano Engle MD at [facility] MAIN OR ??? PRO TOTAL HIP ARTHROPLASTY Left 10/10/2020 TOTAL HIP ARTHROPLASTY - POSTERIOR (WRVU 20.72) performed by Ismael Wu MD at [facility] MAIN OR Social History Tobacco Use ??? Smoking status: Former Smoker Packs/day: 4.00 Years: 30.00 Pack years: 120.00 Types: Cigarettes Quit date: 1992 Years since quittin.3 ??? Smokeless tobacco: Never Used Substance Use Topics ??? Alcohol use: Yes Alcohol/week: 7.0 standard drinks Types: 7 Cans of beer per week Social History Substance and Sexual Activity Drug Use Not Currently Allergies Allergen Reactions ??? Cyclobenzaprine Other (See Comments) Extreme moodiness ??? Other [Unclassified Drug] Other (See Comments) Had reaction to a dye used during vascular procedure at [facility] in [place]: shaking Has tolerated MRI and CT contrast. Medications: MAR and/or home medications have been reviewed. Physical Exam: Preprocedure Vitals Current as of 07/13/21 1753 No BP, pulse, respiration, SpO2, or temperature recorded. Height: Weight: BMI: IBW: Airway Assessment: Mallampati: II TM distance: >3 FB Neck ROM: full Cardiovascular Assessment: system normal Pulmonary Assessment: pulmonary exam normal Dental Assessment: - normal exam Misc Assessment: Patient is wearing No contact(s). IV access: Peripheral line Last Filed Perioperative Cognitive Screening Value Time User AD8 Total Score: 0 05/04/2021 11:00 AM Delia Champagne RN AD8 Informant: Other Informant 05/04/2021 11:00 AM Delia Champagne RN 4AT TOTAL Score: 0 10/12/2020 8:00 AM Savanah Guadalupe RN CFS Frailty Score: 4 05/04/2021 11:00 AM Ashley Salazar RN Anesthesia Plan: ASA 3 general, with a(n) intravenous induction 70 y.o. M with h/o Afib, CAD s/p CABG (2018), CVA (on ASA/plavix), carotid dz (s/p CEA 08/2020), OLGA, DM2, prostate cancer who presents for TCAR. Patient denies CP, SOB or GERD. Labs: Hb 13, Cr 0.8 Plan: TIVA with standard ASA monitors, arterial line, large bore IV access Region - [facility] Informed Consent: Anesthetic plan and risks discussed with patient. Use of blood products discussed with patient who consented to blood products. Plan discussed with ADMITTING REPRESENTATIVE. Anesthesia Screening documented in this encounter Plan of Treatment Upcoming Encounters Date Type Department Care Team (Late st Contact Info) Description 10/11/2023 10:00 AM EDT Tech Visit [place] [address] Giacomo Queen 10/11/2023 11:15 AM EDT Office [place] [address] Basim Barr MD [facility] [place] [address] 10/18/2023 9:00 AM EDT Office Visit Hematology/Oncology at [address] [phone] Cl Hess MD [facility] [place] [address] Yessi Renee [address] HEMATOLOGY AND ONCOLOGY [place], [place] [phone] 10/18/2023 9:30 AM EDT Infusion Hematology Oncology at [address] [phone] 10/24/2023 9:30 AM EDT Scheduled View Only Radiation Oncology at [address] [phone] Rad Nurse, [facility] 10/24/2023 10:00 AM EDT Office Visit Radiation Oncology at [address] [phone] Bigg Peters MD [address] [place] [address] DR RADIATION ONCOLOGY [place], [place] [id number] 11/01/2023 9:00 AM EDT Office Visit Hematology/Oncology at [address] [phone] Cl Hess MD [facility] [place] [address] HEMATOLOGY AND ONCOLOGY [place], [place] [phone] 11/01/2023 9:30 AM EDT Infusion Hematology Oncology at [address] [phone] 12/24/2023 1:00 PM EDT TH Visit (TeleHealth) Radiation Oncology at [address] [phone] Ping Moore PA [facility] HEMATOLOGY [place] [address] documented as of this encounter Visit Diagnoses Not on filedocumented in this encounter Administered Medications Inactive Administered Medications - up to 3 most recent administrations Medication Order MAR Action Action Date Dose Rate Site ceFAZolin (Ancef) 2 g in dextrose 5% 100 mL infusion 2 g, Intravenous, HELPER MAINTENANCE CLEANING TO O.R., 1 dose, On Sat07/14/21 at 0845, Administer over 30 Minutes, Redose after 4 hours., Day of Surgery (Day of Procedure), Indication for (Active or Suspected): Prophylaxis Given 07/14/2021 9:29 AM EDT 2 g dexmedetomidine (Precedex) (4 mcg/mL) bolus injection (Anesthsia) Intravenous, PRN, Starting on Sat07/14/21 at 0941, Until Sat07/14/21 at 1103, Anesthesia Intra-op, Routine Given 07/14/2021 9:41 AM EDT 8 mcg Given 07/14/2021 9:38 AM EDT 8 mcg Given 07/14/2021 9:35 AM EDT 4 mcg ePHEDrine sulfate (5 mg/mL) multi-dose injection Intravenous, PRN, Starting on Sat07/14/21 at 1001, Until Sat07/14/21 at 1103, Anesthesia Intra-op, Routine Given 07/14/2021 10:13 AM EDT 5 mg Given 07/14/2021 10:01 AM EDT 5 mg fentaNYL (pf) (50 mcg/mL) multi-dose injection Intravenous, PRN, Starting on Sat07/14/21 at 0850, Until Sat07/14/21 at 1103, Anesthesia Intra-op, Routine Given 07/14/2021 9:41 AM EDT 100 mcg Given 07/14/2021 8:52 AM EDT 50 mcg Given 07/14/2021 8:50 AM EDT 50 mcg glycopyrrolate (Robinul) (0.2 mg/mL) multi-dose injection Intravenous, PRN, Starting on Sat07/14/21 at 0957, Until Sat07/14/21 at 1103, Anesthesia Intra-op, Routine Given 07/14/2021 10:37 AM EDT 0.6 mg Given 07/14/2021 10:04 AM EDT 0.4 mg Given 07/14/2021 9:57 AM EDT 0.4 mg heparin (porcine) (1,000 units/mL) injection Intravenous, PRN, Starting on Sat07/14/21 at 0950, Until Sat07/14/21 at 1103, Anesthesia Intra-op, Routine Given 07/14/2021 9:48 AM EDT 10,000 Units lactated ringers infusion 1,000 mL, at 100 mL/hr, Intravenous, CONTINUOUS, Starting on Sat07/14/21 at 0845, Until Sat07/14/21 at 1326, Day of Surgery (Day of Procedure) New Bag 07/14/2021 8:35 AM EDT lactated ringers infusion Intravenous, CONTINUOUS PRN, Starting on Sat07/14/21 at 0901, Until Sat07/14/21 at 1103, Anesthesia Intra-op New Bag 07/14/2021 9:01 AM EDT lidocaine (pf) (Xylocaine) (20 mg/mL) 2% injection syringe Intravenous, PRN, Starting on Sat07/14/21 at 0851, Until Sat07/14/21 at 1103, Anesthesia Intra-op, Routine Given 07/14/2021 8:51 AM EDT 50 mg neostigmine (Bloxiver) (1 mg/mL) injection Intravenous, PRN, Starting on Sat07/14/21 at 1037, Until Sat07/14/21 at 1103, Anesthesia Intra-op, Routine Given 07/14/2021 10:37 AM EDT 3 mg niCARdipine (Cardene) injection Intravenous, PRN, Starting on Sat07/14/21 at 1042, Until Sat07/14/21 at 1119, Anesthesia Intra-op, Routine Given 07/14/2021 10:44 AM EDT 0.25 mg Given 07/14/2021 10:42 AM EDT 0.25 mg ondansetron (pf) (Zofran) (2 mg/mL) injection Intravenous, PRN, Starting on Sat07/14/21 at 1024, Until Sat07/14/21 at 1116, Anesthesia Intra-op, Routine Given 07/14/2021 10:24 AM EDT 4 mg PHENYLephrine (Jose-Synephrine) (80 mcg/mL) in sodium chloride 0.9% 250 mL infusion Intravenous, CONTINUOUS PRN, Starting on Sat07/14/21 at 0906, Until Sat07/14/21 at 1103, Anesthesia Intra-op, Routine Rate/Dose Change 07/14/2021 10:01 AM EDT 20 mcg/min 15 mL/hr Rate/Dose Change 07/14/2021 9:51 AM EDT 30 mcg/min 22.5 mL /hr Restarted 07/14/2021 9:45 AM EDT 10 mcg/min 7.5 mL/hr PHENYLephrine in NS (PF) (JOSE-SYNEPHRINE) 0.8 mg/10 mL (80 mcg/mL) multi-dose injection Syrg Intravenous, PRN, Starting on Sat07/14/21 at 0950, Until Sat07/14/21 at 1103, Anesthesia Intra-op, Routine Given 07/14/2021 9:50 AM EDT 80 mcg propofoL (Diprivan) (10 mg/mL) infusion Intravenous, CONTINUOUS PRN, Starting on Sat07/14/21 at 0853, Until Sat07/14/21 at 1103, Anesthesia Intra-op, Routine Rate/Dose Change 07/14/2021 9:51 AM EDT 100 mcg/kg/min 63.72 mL/hr Rate/Dose Change 07/14/2021 9:37 AM EDT 125 mcg/kg/min 79. 65 mL/hr Rate/Dose Change 07/14/2021 9:18 AM EDT 100 mcg/kg/min 63. 72 mL/hr propofoL (Diprivan) 10 mg/mL bolus injection (Anesthesia) Intravenous, PRN, Starting on Sat07/14/21 at 0852, Until Sat07/14/21 at 1103, Anesthesia Intra-op Given 07/14/2021 8:54 AM EDT 50 mg Given 07/14/2021 8:53 AM EDT 50 mg Given 07/14/2021 8:52 AM EDT 50 mg protamine (10 mg/mL) injection Intravenous, PRN, Starting on Sat07/14/21 at 1018, Until Sat07/14/21 at 1103, Anesthesia Intra-op, Routine Given 07/14/2021 10:19 AM EDT 45 mg Given 07/14/2021 10:18 AM EDT 5 mg rocuronium (Zemuron) (10 mg/mL) multi-dose injection Intravenous, PRN, Starting on Sat07/14/21 at 0853, Until Sat07/14/21 at 1103, Anesthesia Intra-op, Routine Given 07/14/2021 9:18 AM EDT 30 mg Given 07/14/2021 8:53 AM EDT 50 mg documented in this encounter Care Teams Anglesmith Relationship Specialty Start Date End Date Alo Carey DO [address] [place] [address] [place] [address] PCP - General Internal Medicine 08/31/20 07/03/23 documented as of this encounter
--- OUTSIDE RECORDS SUMMARY | 2023-10-06 00:41 | XMS_ITS | Encounter Summary ---
[place] [address] Care Team Providers Care Worker'S Compensation Claims Examiner Name Role Phone Alo Carey Primary Care Provider [phone] Reason for Referral * Home Health Care (Routine) - Closed Specialty Diagnoses / Procedures Referred By Marques livingston Referred To Contact Diagnoses Altered mental status, unspecified altered mental status type Stenosis of carotid artery, unspecified laterality History of cerebrovascular accident Sandra Murphy MD [facility] [place] [address] Referral ID Status Reason Start Date Expiration Date V isits Requested Visits Authorized [id number] Closed Consult, Test & Treat 07/22/2021 01/18/2022 999 999 Reason for Visit * Auth/Cert Specialty Diagnoses / Procedures Referred By Marques livingston Referred To Contact Diagnoses Altered mental status, unspecified altered mental status type reperfusion injury Referral ID Status Reason Start Date Expiration Date Visits Re quested Visits Authorized [id number] 1 1 Encounter Details Date Type Department Care Team (Latest Contact Info) Description 07/18/2021 8:14 PM EDT - 07/21/2021 2:35 PM EDT Hospital Encounter Neuro Critical Care Unit - [address] [place] [phone] Patricia Briggs MD [facility] [place] [address] [place] [address] ASCVD (arteriosclerotic cardiovascular disease); Altered mental status, unspecified altered mental status type; Stenosis of carotid artery, unspecified laterality; History of cerebrovascular accident Discharge Disposition: Home with VNA Social History Tobacco Use Types Packs/Day Years Used Date Smoking Tobacco: Former Cigarettes 07 01 1 1992 Smokeless Tobacco: Never Alcohol Use Standard Drinks/Week Comments Yes 7 (1 standard drink = 0.6 oz pur e alcohol) Sex and Gender Information Value Date Recorded Sex Assigned at Not on file Gender Identity Not on file Sexual Orientation Not on file documented as of this encounter Last Filed Vital Signs Vital Sign Reading Time Taken Comments Blood Pressure 139/56 07/21/2021 2:00 PM EDT Pulse 69 07/21/2021 10:00 AM EDT Temperature 36.8 ??C (98.2 ??F) 07/21/2021 1 2:00 PM EDT Respiratory Rate 16 07/21/2021 10:0 0 AM EDT Oxygen Saturation 95% 07/21/2021 2:00 PM EDT Inhaled Oxygen Concentration - - Weight 107.1 kg (236 lb 1.8 oz) 07/20/2021 5:00 AM EDT Height 180.3 cm (5' 11) 07/18/2021 11: 36 PM EDT Body Mass Index 32.93 07/18/2021 11:36 PM EDT documented in this encounter Discharge Summaries * Sandra Murphy MD - 07/21/2021 11:03 AM EDT Discharge Summary Patient Name: Wero Sadler Patient Age: 71 y.o. Language: Spanish Race: White Ethnicity: Not nor Admit date: 07/18/2021 Discharge date and time: 07/22/2021 Attending Physician: Tabitha Del Castillo MD Discharge Physician: Tabitha Del Castillo MD ID: David Sadler is a 71 yo male who is admitted from OSH on 07/18, 1 day after discharge s/p vascular surgery TCAR, for hallucinations and altered mental status now transferred from MICU to hospital medicine service for definitive evaluation and rehabilitation. Follow-up Recommendations for Providers: 1) Suspected Reperfusion injury s/p TCAR on 07/14/21, acute R posterior frontal lobe infarct (small)- Patient was discharged on: Carvedilol 25mg bid, lisinopril 40mg qd, amlodipine 10mg qd, imdur 30mg qd, ASA 81mg qd, clopidogrel 75mg qd, atorvastatin 80mg qd. 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 PCP Contact Information: Alo Carey, [address] / [place] [address] Pending Studies and Lab Data: No current labs Discharge Diagnoses (Hospital Problems) and Secondary Diagnoses (Chronic Problems): Active Hospital Problems Diagnosis ??? Altered mental status, unspecified altered mental status type Resolved Hospital Problems No resolved problems to display. Active Non-Hospital Problems Diagnosis ??? Stenosis of carotid artery, unspecified laterality [...] Diabetes mellitus ??? Hypercholesterolemia ??? Hypertensive disorder History of Presentation (per 07/18/2021 Admission H&P): Wero Sadler is a 71 y.o. 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 ?? Wero had right CEA after lesion found in June 2018 and left CEA with CABG in December 2018 in [place]. He had recurrence of left tunnel vision while working that persisted as 99% vision loss. 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 He [place] [facility] [place] with good result and recovery of vision. He was discharged home 07/17 in stable condition. Wero brothers found him altered with visual hallucinations on 07/18 so they called vascular surgery and brought him to ED where his SBP was [id number]. He was transferred [place] [facility] [place]. Originally thought to have cerebral repe rfusion injury, MICU team titrated nicardipine to SBP<120. He was having headache and LUE pronator drift. CTA showed patent RCA and cerebral vessels. ?? His ammonia, LFT's, glucose, TSH, electrolytes and BUN have all been normal range this hospital stay. ?? On my visit with Wero he is lethargic, with eyes closing while we talk. He is forgetful, but oriented to person, place and time. He is able to give most of the following history. ?? His last drink was a shot of black velasco vodka the night before surgery 07/13. 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 He has never been hospitalized for withdrawal or seizure. On chart review GI has been following Wero for a new pancreatic head mass and ductal dilation. Urology and radiology has been following him for high risk prostatic cancer planning GnRH antagonist (jaunuary and June) and radiation therapy starting 07/28. He has no known brain mets, last brain MRI in December 2020. He has had nearly 20 pounds of weight loss over the last 1 month. Denies fatigue, generalized weakness, fatigue, malaise, headaches. Denies confusion at home, corroborated by family. Patient lives with son in private home. ?? He has no psychiatric history. Never medicated, or hospitalized for any psychiatric concern/hallucination. Hospital Course: Wero Sadler was admitted to the Hospital Medicine Service on 07/18/2021. The following issues wereaddressed and he was discharged on 07/22/2021. 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 He was sent home POD3 on 07/17. The morning of 07/18, Teri brother (roommate) found him on the floor with altered mental status and hallucinations. The cause of this episode remained poorly understood. His brain MRI/A showed acute infarction that wasn'tthought to explain his global encephalopathy. There was also a P2 [employer] SUPER[employer] severe stenosis thought to cam possible source of reperfusion ischemia. Supporting this hypothesis was the fact that his vision improved HD1 with strict SBP control 100-120 on nicardipine drip, his home anti-hypertensives, and imdur 30mg was added. Patient's was monitored and nicardipine drip was weaned off and his mental status improved to baseline. In regards to the TCAR, wero was sent home with aspirin and plavix. Thereis no indication for neurology follow up given that Wero was greater than 48 hours beyond the seminal infarct event. Of note, brain MRI did not show metastasis. Patient was discharged on: Carvedilol 25mg bid, lisinopril 40mg qd, amlodipine 10mg qd, imdur 30mg qd, ASA 81mg qd, clopidogrel 75mg qd,atorvastatin 80mg qd. was sent home with instructions to follow up with his PCP, to further optimize his HTN and for further assessment of his vision with plan for f/u with optometry as well. #Possible Wernicke's Encephalopathy Wernicke's encephalopathy was considered as an etiology of his presentation given his heavy alcoholuse, pronator drift, confusion, altered gait. High dose thiamine was given over 6 doses. He was discharged on thiamine 250mg x 5 days, then 100mg daily in addition to daily MVI and folic acid. Important Studies and Lab Data: 12/21/2020 brain MRI: no brain metastasis. No hyperacute, acute or subacute infarct. 11/17/2020 MRI pelvis: Lesion 1 PZ: PI-RADS 4. Clinically significant cancer is likely to be present. T2 location: axial series 10, image 24; sagittal ??series 4, image 11. Lesion 2 TZ: PI-RADS 5. Clinically significant cancer is highly likely to be present. T2 location: axial series 10, image 23; sagittal ??series 4, image 21. Brain MRI on 07/2021: 1. Single small focus of hyperintense signal on diffusion-weighted images in the deep white matter of the right posterior frontal lobe suspicious for small site of recent infarction. 2. Three small foci of susceptibility-related signal loss at mccrary-white junctions in the right cerebral hemisphere. Differential diagnosis for this asymmetric phenomenon includes small emboli, amyloid angiopathy, and sequela of trauma. 3. No evidence of cerebral metastasis. 4. Moderate to severe focal stenosis of the P2 segment of the left posterior cerebral artery. Sites of more mild stenosis at the proximal M2 segment of the left inferior division and in the P2 segment of the right posterior cerebral Artery Transcranial doppler 07/2021: Indications: Altered mental status s/p RIGHT TCAR; reperfusion hyperemia Findings: Right ?Mean Velocity (cm/s) ??Pulsatility Index ?? Middle Cerebral Artery Proximal ?43 ?1.1 ?? Middle Cerebral Artery Mid ? 57 ?1.1 ?? Middle Cerebral Artery Distal ?60 ?1.2 ?? Left ? Mean Velocity (cm/s) ??Pulsatility Index ?? Middle Cerebral Artery Proximal ?69 ?1.3 ?? Middle Cerebral Artery Mid ? 72 ?1.5 ?? Middle Cerebral Artery Distal ?65 ?1.2 ? Interpretation: Patent MCA vessels bilaterally with no evidence of reperfusion hyperemia. Comparison: ??No previous study in our vascular lab database for comparison. Discharge Conditions/Prognosis: Upon discharge the patientis hemodynamically stable, afebrile, fully ambulatory without requiring supplemental oxygen, holding down food/drink, and pain free. Vital Signs: Last value Range last 24 hrs Temperature Temp: 36.8 ??C (98.2 ??F) Temp: -- Heart Rate Heart Rate: 69 Heart Rate: -- Blood Pressure BP: 139/56 BP: -- Respiratory Rate Resp: 16 Resp: -- SpO2 SpO2: 95 % SpO2: -- Exam: General: Pt is alert, well appearing, and in no acute distress. R Eye: Pupils equal and reactive to light and accomodation. No external erythema. VISUAL EXAM: dysmetric finger nose finger test. Unable to state number of fingers being held up from 6 ft away. Diminished peripheral raymond in all 4 quadrants. Chest: Lungs clear to auscultation bilaterally; no wheezing. Heart: Regular rate and rhythm. S1, S2 present. No murmurs or extra heart sounds. Abdomen: Bowel sounds present in all 4 quadrants. Soft, nontender, no masses noted. Neurological: Cranial nerves II-XII grossly intact. Extremities: No edema. Skin: Warm, dry, no rash on limited exam. Discharge to: home with private transport from family Discharge Medications: Your Medications New Medications Dose Details folic acid 1 mg Tab Commonly known as: Folvite Take 1 tablet by mouth daily. 1,000 mcg Quantity: 90 tablet Refills: 3 isosorbide mononitrate CR 30 mg Tablet sr Commonly known as: Imdur Take 1 tablet by mouth nightly. 30 mg Quantity: 30 tablet Refills: 12 multivitamin with minerals 9 mg iron-400 mcg Tab Commonly known as: Thera M Take 1 tablet by mouth daily. 1 tablet Quantity: 90 tablet Refills: 3 thiamine Commonly known as: Vitamin B1 Take 2.5 tablets by mouth daily for 5 days, THEN 1 tablet daily for 25 days. Start taking on: July 21, 2021 Quantity: 38 tablet Refills: 0 Continued medications with new dosing Dose Details lisinopriL 40 mg Tab Commonly known as: Zestril Take 1 tablet by mouth daily. What changed: ?? medication strength ?? how much to take 40 mg Quantity: 90 tablet Refills: 3 Continued medications, unchanged Dose Details acetaminophen 500 mg Tab Commonly known as: Tylenol Take 2 tablets by mouth every 6 hours. 1,000 mg Quantity: 30 tablet Refills: 1 amLODIPine 10 mg Tab Commonly known as: Norvasc Take 10 mg by mouth daily. 10 mg Refills: 0 aspirin EC 81 mg Tbec Take 81 mg by mouth daily. 81 mg Refills: 0 atorvastatin 80 mg Tab Commonly known as: Lipitor Take 1 tablet by mouth every evening. 80 mg Quantity: 90 tablet Refills: 3 carvediloL 25 mg Tab Commonly known as: Coreg Take 25 mg by mouth 2 times daily (with meals). 25 mg Refills: 0 clopidogreL 75 mg Tab Commonly known as: Plavix daily. Refills: 0 fish oil-omega-3 fatty acids 1,000 mg Cap Take 2 g by mouth daily. 2 g Refills: 0 glimepiride 1 mg Tab Commonly known as: Amaryl daily. Will take BID on days of dexamethasone Refills: 0 metFORMIN 500 mg Tr24 Commonly known as: FORTAMET Take 1,000 mg by mouth 2 times daily (with meals). 1,000 mg Refills: 0 Updated Allergies/ADRs: Allergies Allergen Reactions ??? Cyclobenzaprine Other (See Comments) Extreme moodiness ??? Other [Unclassified Drug] Other (See Comments) Had reaction to a dye used during vascular procedure at [facility] in [place]: shaking Has tolerated MRI and CT contrast. Instructions Given to Patient at Discharge: Patient Instructions Instructions on Discharge to Home Why you were hospitalized - Due to a change in your mental status and visual loss related to your recent TCAR procedure. Call your doctor or seek medical attention if you develop the following - chest pain, shortness of breath, fever, cough, weakness in an arm or leg Activity level - no restrictions Diet - no change in previous diet Driving - as before hospitalization Shower/Bath - permitted Wound Care - none Home Oxygen therapy - none 1) Blood pressure - You were started on IMDUR 30mg daily and your lisinopril was increased to 40mg daily in addition to your previous regimen. Please continue to take: Carvedilol 25mg twice daily, lisinopril 40mg daily, amlodipine 10mg daily, imdur 30mg daily. 2) Stroke, recent carotid artery procedure- Please continue to take aspirin 81mg daily, [id number] daily, atorvastatin 80mg daily. 3) Thiamine, vitamins - Please take 250mg of thiamine daily for the next 5 days, then take 100mg daily. Please also take folic acid 1mg and a multivitamin daily. 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 Changes in Your Medications: Your Medications New Medications Dose Details folic acid 1 mg Tab Commonly known as: Folvite Take 1 tablet by mouth daily. 1,000 mcg Quantity: 90 tablet Refills: 3 isosorbide mononitrate CR 30 mg Tablet sr Commonly known as: Imdur Take 1 tablet by mouth nightly. 30 mg Quantity: 30 tablet Refills: 12 multivitamin with minerals 9 mg iron-400 mcg Tab Commonly known as: Thera M Take 1 tablet by mouth daily. 1 tablet Quantity: 90 tablet Refills: 3 thiamine Commonly known as: Vitamin B1 Take 2.5 tablets by mouth daily for 5 days, THEN 1 tablet daily for 25 days. Start taking on: July 21, 2021 Quantity: 38 tablet Refills: 0 Continued medications with new dosing Dose Details lisinopriL 40 mg Tab Commonly known as: Zestril Take 1 tablet by mouth daily. Start taking on: July 22, 2021 What changed: ?? medication strength ?? how much to take 40 mg Quantity: 90 tablet Refills: 3 Continued medications, unchanged Dose Details acetaminophen 500 mg Tab Commonly known as: Tylenol Take 2 tablets by mouth every 6 hours. 1,000 mg Quantity: 30 tablet Refills: 1 amLODIPine 10 mg Tab Commonly known as: Norvasc Take 10 mg by mouth daily. 10 mg Refills: 0 aspirin EC 81 mg Tbec Take 81 mg by mouth daily. 81 mg Refills: 0 atorvastatin 80 mg Tab Commonly known as: Lipitor Take 1 tablet by mouth every evening. 80 mg Quantity: 90 tablet Refills: 3 carvediloL 25 mg Tab Commonly known as: Coreg Take 25 mg by mouth 2 times daily (with meals). 25 mg Refills: 0 clopidogreL 75 mg Tab Commonly known as: Plavix daily. Refills: 0 fish oil-omega-3 fatty acids 1,000 mg Cap Take 2 g by mouth daily. 2 g Refills: 0 glimepiride 1 mg Tab Commonly known as: Amaryl daily. Will take BID on days of dexamethasone Refills: 0 metFORMIN 500 mg Tr24 Commonly known as: FORTAMET Take 1,000 mg by mouth 2 times daily (with meals). 1,000 mg Refills: 0 Follow-up: You are scheduled with your PCP for a follow-up appointment with Dr. Alo Carey on 08/03/21 at 2:20PM Future Appointments Date Time Provider Department Center 07/26/2021 2:00 PM [facility]C, TREATMENT [facility] Rad [facility]rt [facility] 07/27/2021 2:45 PM [facility] RAD/ONC, TREATMENT [facility] Rad [facility] 07/28/2021 1:45 PM [facility]/ONC, TREATMENT [facility] Rad [facility] 08/01/2021 12:45 PM [facility] RAD/ONC, TREATMENT [facility] Rad [facility] 08/02/2021 12:45 PM [facility]/ONC, TREATMENT [facility] Rad [facility] 08/03/2021 12:45 PM [facility] RAD/ONC, TREATMENT [facility] Rad [facility] 08/04/2021 1:00 PM [facility]/ONC, TREATMENT [facility] Rad T[facility] 08/07/2021 12:45 PM [facility] RAD/ONC, TREATMENT [facility] Rad Trt [facility] 08/08/2021 12:45 PM [facility] RAD/ONC, TREATMENT [facility] Rad T[facility] 08/09/2021 12:45 PM [facility] RAD/ONC, TREATMENT [facility] Rad T[facility] 08/10/2021 12:45 PM [facility] RAD/ONC, TREATMENT [facility] Rad Trt [facility] 08/11/2021 1:00 PM [facility] RAD/ONC, TREATMENT [facility] Rad T[facility] 08/14/2021 12:45 PM [facility] RAD/ONC, TREATMENT [facility] Rad Trt [facility] [place] [facility] 08/15/2021 12:45 PM [facility] RAD/ONC, TREATMENT [facility] Rad Trt [facility] 08/16/2021 12:45 PM [facility] RAD/ONC, TREATMENT [facility] Rad Trt [facility] 08/17/2021 12:45 PM [facility] RAD/ONC, TREATMENT [facility] Rad Trt [facility] 08/18/2021 12:45 PM [facility] RAD/ONC, TREATMENT [facility] Rad Trt [facility] 08/21/2021 12:45 PM [facility] RAD/ONC, TREATMENT [facility] Rad Trt [facility] 08/22/2021 12:45 PM [facility] RAD/ONC, TREATMENT [facility] Rad Trt [facility] 08/23/2021 12:45 PM [facility] RAD/ONC, TREATMENT [facility] Rad Trt [facility] 08/24/2021 12:45 PM [facility] RAD/ONC, TREATMENT [facility] Rad Trt [facility] 08/25/2021 12:45 PM [facility] RAD/ONC, TREATMENT [facility] Rad Trt [facility] 08/28/2021 12:45 PM [facility] RAD/ONC, TREATMENT [facility] Rad Trt [facility] [place] [facility] 08/29/2021 12:45 PM [facility] RAD/ONC, TREATMENT [facility] Rad Trt [facility] 08/30/2021 12:45 PM [facility] RAD/ONC, TREATMENT [facility] Rad Trt [facility] 08/31/2021 12:45 PM [facility] RAD/ONC, TREATMENT [facility] Rad Trt [facility] 09/01/2021 12:45 PM [facility] RAD/ONC, TREATMENT [facility] Rad Trt [facility] 09/05/2021 12:45 PM [facility] RAD/ONC, TREATMENT [facility] Rad Trt [place] [facility] Your Inpatient Doctor: MD Patricia Jaramillo MD Dineth M Bandarage, MD Your Primary Care Provider: Alo Carey DO [phone] For questions regarding this document or issues relating to this hospitalization on the Medical Service, please contact your inpatient physician through the [facility] [employer] . Issues afterhours and on weekends will be handled by the Hospitalist staff on-call. General Instructions Physical Therapy Recommendations: Mobility and Positioning Recommendations: ?? Pt. to utilize rolling walker and supervision for ambulation and transfers with nursing. ?? Please encourage up to chair for meal times as able. ?? Pt encouraged to ambulate frequently with staff, getting into the bathroom for toileting and walking out in the adan >/= 3 times daily as able. Future Appointments and Orders Future Appointments and Orders Future Appointments Provider Department Dept Phone 07/26/2021 2:00 PM [facility] RAD/ONC, TREATMENT Radiation Oncology at [facility] Arrive at: [facility] door at end of hallway [phone] 07/27/2021 2:45 PM [facility] RAD/ONC, TREATMENT Radiation Oncology at [facility] Arrive at: [facility] door at end of hallway [phone] 07/28/2021 1:45 PM [facility] RAD/ONC, TREATMENT Radiation Oncology at [facility] Arrive at: [facility] door at end of hallway [phone] 08/01/2021 12:45 PM [facility] RAD/ONC, TREATMENT Radiation Oncology at [facility] Arrive at: [facility] door at end of hallway [phone] 08/02/2021 12:45 PM [facility] RAD/ONC, TREATMENT Radiation Oncology at [facility] Arrive at: [facility] door at end of hallway [phone] 08/03/2021 12:45 PM [facility] RAD/ONC, TREATMENT Radiation Oncology at [facility] Arrive at: [facility] door at end of hallway [phone] 08/04/2021 1:00 PM [facility] RAD/ONC, TREATMENT Radiation Oncology at [facility] Arrive at: [facility] door at end of hallway [phone] 08/07/2021 12:45 PM [facility] RAD/ONC, TREATMENT Radiation Oncology at [facility] Arrive at: [facility] door at end of hallway [phone] 08/08/2021 12:45 PM [facility] RAD/ONC, TREATMENT Radiation [facility]cology at [facility] Arrive at: [facility] door at end of hallway [phone] 08/09/2021 12:45 PM [facility] RAD/ONC, TREATMENT Radiation Oncology at [facility] Arrive at: [facility] door at end of hallway [phone] 08/10/2021 12:45 PM [facility] RAD/ONC, TREATMENT Radiation Oncology at [facility] Arrive at: [facility] door at end of hallway [phone] 08/11/2021 1:00 PM [facility] RAD/ONC, TREATMENT Radiation [facility]cology at [facility] Arrive at: [facility] door at end of hallway [phone] 08/14/2021 12:45 PM [facility] RAD/ONC, TREATMENT Radiation [facility]cology at [facility] Arrive at: [facility] door at end of hallway [phone] 08/15/2021 12:45 PM [facility] RAD/ONC, TREATMENT Radiation Oncology at [facility] Arrive at: [facility] door at end of hallway [phone] 08/16/2021 12:45 PM [facility] RAD/ONC, TREATMENT Radiation Oncology at [facility] Arrive at: [facility] door at end of hallway [phone] 08/17/2021 12:45 PM [facility] RAD/ONC, TREATMENT Radiation Oncology at [facility] Arrive at: [facility] door at end of hallway [phone] 08/18/2021 12:45 PM [facility] RAD/ONC, TREATMENT Radiation [facility] at [facility] Arrive at: [facility] door at end of hallway [phone] 08/21/2021 12:45 PM [facility] RAD/ONC, TREATMENT Radiation [facility] at [facility] Arrive at: [facility] door at end of hallway [phone] 08/22/2021 12:45 PM [facility] RAD/ONC, TREATMENT Radiation Oncology at [facility] Arrive at: [facility] door at end of hallway [phone] 08/23/2021 12:45 PM [facility] RAD/ONC, TREATMENT Radiation [facility]cology at [facility] Arrive at: [facility] door at end of hallway [phone] 08/24/2021 12:45 PM [facility] RAD/ONC, TREATMENT Radiation [facility]cology at [facility] Arrive at: [facility] door at end of hallway [phone] 08/25/2021 12:45 PM [facility] RAD/ONC, TREATMENT Radiation [facility]cology at [facility] Arrive at: [facility] door at end of hallway [phone] 08/28/2021 12:45 PM [facility] RAD/ONC, TREATMENT Rad[facility] at [facility] Arrive at: [facility] door at end of hallway [phone] 08/29/2021 12:45 PM [facility] RAD/ONC, TREATMENT Radiation [facility] at [facility] Arrive at: [facility] door at end of hallway [phone] 08/30/2021 12:45 PM [facility] RAD/ONC, TREATMENT Radiation Oncology at [facility] at: [facility] door at end of hallway [phone] 08/31/2021 12:45 PM STJ RAD/ONC, TREATMENT Radiation Oncology at [facility] Arrive at: [facility] door at end of hallway [phone] 09/01/2021 12:45 PM ST[facility] RAD/ONC, TREATMENT Radiation Oncology at [facility] Arrive at: [facility] door at end of hallway [phone] 09/05/2021 12:45 PM STJ RAD/ONC, TREATMENT Radiation Oncology at [facility] Arrive at: [facility] door at end of hallway [phone] Future Orders Complete By Expires Referral to Home Health [REF34 Custom] As directed Process Instructions: If no progress note charted, please enter Clinical details in comments. Scheduling Instructions: Comments: DOCUMENTATION FOR VNA SERVICES PATIENT'S LOCATION: Wero Sadler ? [address] [facility] [address] mobile Manager Business Continuity's Name: Patient and significant other Amy In discussion with the attending physician, it is certified that this patient is under their care and that they, or a Nurse Practitioner, Clinical Nurse Specialist or Physician Business Manager [employer] who is working directly with them, had a face to face encounter that meets the physician face to face encounter requirements with this patient on 07/21/21. ?? The encounter with the patient was in whole, or in part, for the following medical condition, whichis the primary reason for home health care services: S/p TCAR, blindness at baseline In discussion with the provider, it is certified that, based on their findings, the following services are medically necessary for home health services. To provide the following care/treatments with the clinical findings supporting the need for services as follows: PT ORDERS: Continue rehab for endurance, gait stability and strength with mobility and transfers. Home safety evaluation. Home exercise program if appropriate. Please order RN services if needed for admission assessment or indicated when you visit. OT ORDERS: Assess and continue rehab for managing ADL's. Home exercise program if appropriate. HOME HEALTH CARE AGENCY: [facility] ?? PHONE: [phone] ??FAX: [phone] ?? Start of care: 24-48 hrs after discharge In discussion with the attending physician, it is certified that the clinical findings support thatthis patient is homebound because absences from home require considerable and taxing effort due to: Unable to ambulate community surfaces or distances unassisted due to blindness and decreased balance and risk for falls. Unsteady gait, poor balance, requiring assistive devices and/or assistance of another. Please note that any additional orders needs or changes will need to be obtained from this patient's PCP: ??Alo Carey, DO ? [address] [place] [address] / [place] [address] ?[phone] All VNA agencies which cover the area of patient's residence have been reviewed, either verbally alberto writing, and patient/family have chosen the home health care agency noted. Questions: Disciplines Requested: Physical Therapy Occupational Therapy Inpatient Provider Contact Information: Sandra Murphy MD Internal Medicine, [place]Y-3 [facility] [place] Pager [phone] Discharge References/Attachments: Discharge References/Attachments None documented in this encounter Discharge Instructions * Discharge Instructions* Sandra Murphy MD - 07/20/2021 9:31 AM EDT Physical Therapy Recommendations: Mobility and Positioning Recommendations: Pt. to utilize rolling walker and supervision for ambulation and transfers with nursing. Please encourage up to chair for meal times as able. Pt encouraged to ambulate frequently with staff, getting into the bathroom for toileting and walking out in the adan >/= 3 times daily as able. * Patient Instructions* Sandra Murphy MD - 07/20/2021 7:36 PM EDT Instructions on Discharge to Home Why you were hospitalized - Due to a change in your mental status and visual loss related to your recent TCAR procedure. Call your doctor or seek medical attention if you develop the following - chest pain, shortness of breath, fever, cough, weakness in an arm or leg Activity level - no restrictions Diet - no change in previous diet Driving - as before hospitalization Shower/Bath - permitted Wound Care - none Home Oxygen therapy - none 1) Blood pressure - You were started on IMDUR 30mg daily and your lisinopril was increased to 40mg daily in addition to your previous regimen. Please continue to take: Carvedilol 25mg twice daily, lisinopril 40mg daily, amlodipine 10mg daily, imdur 30mg daily. 2) Stroke, recent carotid artery procedure- Please continue to take aspirin 81mg daily, [id number] daily, atorvastatin 80mg daily. 3) Thiamine, vitamins - Please take 250mg of thiamine daily for the next 5 days, then take 100mg daily. Please also take folic acid 1mg and a multivitamin daily. 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 Changes in Your Medications: Your Medications New Medications Dose Details folic acid 1 mg Tab Commonly known as: Folvite Take 1 tablet by mouth daily. 1,000 mcg Quantity: 90 tablet Refills: 3 isosorbide mononitrate CR 30 mg Tablet sr Commonly known as: Imdur Take 1 tablet by mouth nightly. 30 mg Quantity: 30 tablet Refills: 12 multivitamin with minerals 9 mg iron-400 mcg Tab Commonly known as: Thera M Take 1 tablet by mouth daily. 1 tablet Quantity: 90 tablet Refills: 3 thiamine Commonly known as: Vitamin B1 Take 2.5 tablets by mouth daily for 5 days, THEN 1 tablet daily for 25 days. Start taking on: July 21, 2021 Quantity: 38 tablet Refills: 0 Continued medications with new dosing Dose Details lisinopriL 40 mg Tab Commonly known as: Zestril Take 1 tablet by mouth daily. Start taking on: July 22, 2021 What changed: medication strength how much to take 40 mg Quantity: 90 tablet Refills: 3 Continued medications, unchanged Dose Details acetaminophen 500 mg Tab Commonly known as: Tylenol Take 2 tablets by mouth every 6 hours. 1,000 mg Quantity: 30 tablet Refills: 1 amLODIPine 10 mg Tab Commonly known as: Norvasc Take 10 mg by mouth daily. 10 mg Refills: 0 aspirin EC 81 mg Tbec Take 81 mg by mouth daily. 81 mg Refills: 0 atorvastatin 80 mg Tab Commonly known as: Lipitor Take 1 tablet by mouth every evening. 80 mg Quantity: 90 tablet Refills: 3 carvediloL 25 mg Tab Commonly known as: Coreg Take 25 mg by mouth 2 times daily (with meals). 25 mg Refills: 0 clopidogreL 75 mg Tab Commonly known as: Plavix daily. Refills: 0 fish oil-omega-3 fatty acids 1,000 mg Cap Take 2 g by mouth daily. 2 g Refills: 0 glimepiride 1 mg Tab Commonly known as: Amaryl daily. Will take BID on days of dexamethasone Refills: 0 metFORMIN 500 mg Tr24 Commonly known as: FORTAMET Take 1,000 mg by mouth 2 times daily (with meals). 1,000 mg Refills: 0 Follow-up: You are scheduled with your PCP for a follow-up appointment with Dr. Alo Carey on 08/03/21 at 2:20PM Future Appointments Date Time Provider Department Center 07/26/2021 2:00 PM [facility] RAD/ONC, TREATMENT [facility] 07/27/2021 2:45 PM ST[facility] RAD/ONC, TREATMENT [facility] 07/28/2021 1:45 PM ST[facility] RAD/ONC, TREATMENT [facility] 08/01/2021 12:45 PM STJ RAD/ONC, TREATMENT [facility] Rad [facility] 08/02/2021 12:45 PM ST[facility] RAD/ONC, TREATMENT [facility] Rad Trt [facility] 08/03/2021 12:45 PM STJ RAD/ONC, TREATMENT [facility] Rad Trt [facility] 08/04/2021 1:00 PM STJ RAD/ONC, TREATMENT [facility] Rad Trt [facility] 08/07/2021 12:45 PM STJ RAD/ONC, TREATMENT [facility] Rad [facility] 08/08/2021 12:45 PM STJ RAD/ONC, TREATMENT [facility] Rad [facility] 08/09/2021 12:45 PM STJ RAD/ONC, TREATMENT [facility] Rad [facility] 08/10/2021 12:45 PM STJ RAD/ONC, TREATMENT [facility] Rad [facility]rt [facility] 08/11/2021 1:00 PM ST[facility] RAD/ONC, TREATMENT [facility] Rad [facility] 08/14/2021 12:45 PM ST[facility] RAD/ONC, TREATMENT [facility] Rad [facility] 08/15/2021 12:45 PM STJ RAD/ONC, TREATMENT [facility] Rad T[facility] 08/16/2021 12:45 PM STJ RAD/ONC, TREATMENT [facility] Rad Trt [facility] 08/17/2021 12:45 PM STJ RAD/ONC, TREATMENT [facility] Rad t [facility] 08/18/2021 12:45 PM STJ RAD/ONC, TREATMENT [facility] Rad Trt [facility] 08/21/2021 12:45 PM STJ RAD/ONC, TREATMENT [facility] Rad Trt [facility] 08/22/2021 12:45 PM STJ RAD/ONC, TREATMENT [facility] Rad [facility] 08/23/2021 12:45 PM STJ RAD/ONC, TREATMENT [facility] Rad [facility] 08/24/2021 12:45 PM STJ RAD/ONC, TREATMENT [facility] Rad T[facility] 08/25/2021 12:45 PM STJ RAD/ONC, TREATMENT [facility] Rad T[facility] 08/28/2021 12:45 PM STJ RAD/ONC, TREATMENT [facility] Rad T[facility] 08/29/2021 12:45 PM STJ RAD/ONC, TREATMENT [facility] Rad [facility] 08/30/2021 12:45 PM STJ RAD/ONC, TREATMENT [facility] Rad [facility] 08/31/2021 12:45 PM STJ RAD/ONC, TREATMENT [facility] Rad [facility] 09/01/2021 12:45 PM STJ RAD/ONC, TREATMENT [facility] Rad [facility] 09/05/2021 12:45 PM STJ RAD/ONC, TREATMENT [facility] Rad Trt [facility] Your Inpatient Doctor: MD Patricia Jaramillo MD Dineth M Bandarage, MD Your Primary Care Provider: Alo Carey DO [phone] For questions regarding this document or issues relating to this hospitalization on the Medical Service, please contact your inpatient physician through the [facility] [place] [facility] . Issues afterhours and on weekends will be handled by the Hospitalist staff on-call. documented in this encounter Medications at Time of Discharge Medication Sig Dispensed Refills Start Date End Date omega 0-cqz-gyk-fish oil 250-350-1,000 mg Capsule Take 1,000 mg by mouth. 07/18/2021 folic acid (Folvite) 1 mg Tablet Take [...] (E.C.) Take 81 mg by mouth daily. thiamine (thiamine) Take 2.5 tablets by mouth daily for 5 days, THEN 1 tablet daily for 25 days. 38 tablet 07/21/2021 08/20/2021 multivitamin with minerals (Thera M) 9 mg iron-400 mcg Tablet Take 1 tablet by mouth daily. 90 tablet 3 07/21/2021 08/17/2021 lisinopriL (Zestril) 40 mg Tablet Take 1 tablet by mouth daily. 90 tablet 3 07/22/2021 11/18/2021 acetaminophen (Tylenol) 500 mg Tablet Take 2 tablets by mouth every 6 hours. 30 tablet 1 07/17/2021 09/21/2021 carvediloL (Coreg) 25 mg Tablet Take 25 mg by mouth 2 times daily (with meals). 12/08/2020 11/18/2021 glimepiride (Amaryl) 1 mg Tablet Take 1 mg by mouth daily. 11/20/2020 10/12/2022 clopidogreL (Plavix) 75 mg Tablet daily. 08/17/2021 metFORMIN (FORTAMET) 500 mg Tablet Extended Rel 24 hr Take 1,000 mg by mouth 2 times daily (with meals). 06/07/2023 amLODIPine (Norvasc) 10 mg Tablet Take 5 mg by mouth daily. 11/18/2021 fish oil-omega-3 fatty acids 1,000 mg Capsule Take 1 g by mouth daily. 11/18/2021 documented as of this encounter Progress Notes * Marixa Garcia RN - 07/21/2021 1:51 PM EDT OUTCOME EVALUATION NOTE: OUTCOME SUMMARY: Discharge orders placed this morning. AVS printed and reviewed with patient and s/o Amy. Medications reviewed and questions answered. IVs removed. Pt brought to Main Entrance via wheelchair and assisted into Amy's car. * Tabitha Del Castillo MD - 07/21/2021 11:43 AM EDT Hospital Medicine - Attending Day of Discharge Documentation Discharge diagnosis Active Hospital Problems Diagnosis ??? Altered mental status, unspecified altered mental status type Resolved Hospital Problems No resolved problems to display. Secondary Issues Active Non-Hospital Problems Diagnosis ??? Stenosis of carotid artery, unspecified laterality [...] Diabetes mellitus ??? Hypercholesterolemia ??? Hypertensive disorder I have personally seen and examined the patient and they are ready for discharge. I spent >30 minutes (Day of Discharge Code 61216) involved in the final examination of the patient, discussion of the hospital stay, instructions for continuing care to all relevant caregivers, and preparation of discharge records, prescriptions and referral forms. Plans ? Discharge to home ? Follow-up scheduled with pcp ? Please see the Discharge Summary for complete details of any medication changes and additional plans. * Leah Ortega RN - 07/21/2021 10:59 AM EDT I reviewed a list of Home Health Agencies/DME vendors with patient which serve the preferred geographic area. If patient chooses one of our affiliates, I will provide our affiliate letter. Education was provided about the right to choose where referrals are placed. Patient requests referral to: [facility]. PHONE: [phone] FAX: [phone] Expected date of discharge: 07/21/21 Referral routed to the Cigarette Lighter Repairer for matching with agency/vendor and to provide any required information. Leah Ortega RN [facility] Phone [phone] Pager [phone] * Denys Kimball, OT - 07/21/2021 10:33 AM EDT Occupational Therapy Treatment Note Treatment Number OT: 2 Patient Dx: Wero Sadler is a 71 y.o. male admitted on 07/18/2021 with PMH of ETOH abuse (last??drink 07/13), HLD, DMII, colorectal cancer, CVA, OLGA, CAD s/p 3 vessel CABG, L eye prosthesis d/t childhood injury, prostate cancer (currently undergoing chemo/radiation therapy), and R ICA stenosis s/p CEA at OSH, complicated by recurrent stenosis and subsequent visual loss in R eye that recently underwent R TCAR (07/14). Discharged home (07/17) on DAPT and Lisinopril for hypertensive postop period. ?? Pt transferred from [facility] after waking up on 07/18 altered apparently fallen out ofbed yesterday morning and found by his brother. Pt states he fell 3x that morning d/t imbalance. Presented to ED for eval of AMS and visual/auditory hallucinations. He has a LUE pronator drift (NIHSS1) and SCOTT. There is c/f reperfusion injury VS acute ETOH withdrawal. ?? Social History: from Pt with PT ?Home setup: Pt lives with his brother in a two level home with 2 CLARIBEL and a FOS with B railings to the second floor where pt's bedroom is located. Pt has a significant other that visits often and sometimes spends the night. The downstairs bathroom has a walk-in shower (which he uses). Upstairs bathroom has clawfoot tub. ?Baseline Mobility/Prior level of function: Ambulates independently without a device, independent with most ADLs but is not able to put on socks. Does not drive.(Brother does drive) Pt enjoys woodworking. Pt has h/o several recent falls, all on day of admission. ?DME: cane, rolling walker ? Precautions/Special Considerations: fall risk; activity as jacquie;SBP<140, prosthetic eye on L Interval History: ? D/c today S: Hell of a time getting clothes on. O: Patient seen for skilled OT treatment, and demonstrated the following: ?? Self-care: ?? Pt up in recliner. ?? Pt was able to stand from chair to walker independently, and walk across room to sink and back using walker with supervision. ?? Pt stood at sink to complete grooming tasks with set up and supervision/independently. ?? Pt returned to recliner to work on dressing. ?? Pt struggled getting L LE into leg of underwear- appeared to be a perceptual challenge- but eventually got it. Pt sat to don underwear to thighs and then stood with supervision to hike them. ?? Pt donned short seated/standing with supervision. ?? Pt was able to doff socks bending over, and slip on shoes with slight effort for L shoe 2' heel collapsed. Pt reports having shoehorn at home. ?? Pt was able to don t-shirt following assistance for set-up and verbal cues to improve attention to task(as didn't recognize shirt was inside out and going to be donned backward). ?? Cognition: ?? Behavior / Mood: alert and cooperative ?? Alert and oriented to: person, place and time ?? Follows commands: 1 step and 2 step ?? Attention: requires cues to redirect ?? Safety awareness: WFL ?? Vision:low vision, R eye only functional vision ?? Endurance:improved. ?? Vitals: BP 140/64 in chair, 132/67 after standing ADL, and 126/57 once settled in recliner at end of session. Pain: Pt c/o L thumb pain more than knee pain today. RN made aware. Education: Pt/family/caregiver education ongoing regarding: Role of occupational therapy/rehabilitation, Transfers, Assistive device/technique, ADL, Safety, Functional Mobility, Activity pacing/Energy conservation, Recommendations and Discharge planning. Staff Communication: Patient status, treatment, and mobility recommendations discussed with nursing/other staff. ASSESSMENT: Pt doing significantly better than on evaluation, given better BP control. Pt though still struggling a little with ADLs 2' decreased vision, perceptual challenges, and needing some assistance. Pt though assures therapist brother and SO can help. Pt open to home services. Pt moving withsupervision with use of a walker for ADLs. Will monitor pt while he remains in hospital, and f/u ifnot discharged Saturday. Equipment needs at discharge: (has shower seat and walker) Anticipated Discharge Disposition: home with supervision, home with home health Occupational Therapy Goals: To be achieved by 08/02 ? Patient will ambulate functional household distances to bathroom with supervision and walker. (MET) ?? Patient will don/doff footwear sitting eob/chair using AE as needed independently. (MET) ?? Patient will don/doff pants/shorts seated/standing with supervision following set up. (MET) ?? Patient will complete grooming tasks seated/standing at sink with supervision following set up. (MET) ?? Patient will be supervised with toileting routines in the bathroom. ?? Pt will complete bathing routine with supervision at sink level /p set-up, using appropriate DME/AE as needed. ?? Pt will verbalize knowledge of 2 fall prevention strategies to minimize risk of future falls. ?? Pt will tolerate 10 minutes of daily upper extremity exercise in order to increase general activity tolerance and performance in ADLs/IADLs. ?? Therapy Frequency (OT): Monitor Total Minutes, Occupational Therapy: 29 (10:33-11:02 (self care mgmt x2)) Pager: [phone] DENYS KIMBALL, OT 07/21/2021 Occupational Therapy Rehabilitation Department * Gaby Ro - 07/20/2021 1:35 PM EDT Nutrition Services Note - Low Nutrition Acuity Wero Sadler is a 71 y.o. male Reason for intervention: ICU admit Nutrition Plan: Continue diet order Bernard noted B1 and Lisseth noted Encourage good po Continued assistance with ordering appreciated from nursing team Pt screened for ICU nutrition eval. Unable to connect with pt d/t status, production underwriter spoke with nurse and conducted a chart review. Nurse endorses excellent po which consistent with most recent documentation. She states he eats all of the food provided as long as he likes the food. The nurse also mentioned that the he has issues with vision, so as long as someone is able to help him read the menu and he can pick out what he likes, he eats well and is able to adhere to diet order. No complaints of naus/vom/chew/swal expressed on pt's behalf. Active Orders Diet Carb Control diet 60/60/75 CHO counting level 2 Frequency: Effective Now Number of Occurrences: Until Specified Admit Weight: 105 kg Estimated body mass index is 32.93 kg/m?? as calculated from the following: Height as of this encounter: 180.3 cm (5' 11). Weight as of this encounter: 107.1 kg (236 lb 1.8 oz). Wt Readings from Last 5 Encounters: 07/20/21 107.1 kg (236 lb 1.8 oz) 07/17/21 105.4 kg (232 lb 5.8 oz) 07/11/21 106.2 kg (234 lb 3.2 oz) 05/23/21 111.8 kg (246 lb 7.6 oz) 05/04/21 111.8 kg (246 lb 7.6 oz) Weight loss: not clinically significant; lasix noted. Monitor for further downtrends. 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 Gaby Ro, DT * Melva Diego, PT - 07/20/2021 10:46 AM EDT Physical Therapy Note Treatment Number PT: 2 Patient profile: Wero Sadler is a 71 y.o.??male??PMH of ETOH abuse (last drink 07/13), HLD, DMII, colorectal cancer, CVA, OLGA, CAD s/p 3 vessel CABG, L eye prosthesis d/t childhood injury, prostate cancer (currently undergoing chemo/radiation therapy), and R ICA stenosis s/p CEA at OSH, complicated by recurrent stenosis and subsequent visual loss in R eye that recently underwent R TCAR (07/14). Discharged home (07/17) on DAPT and Lisinopril for hypertensive postop period. Pt transferred from [facility] after waking up on 07/18 altered apparently fallen out ofbed yesterday morning and found by his brother. Pt states he fell 3x that morning d/t imbalance. Presented to ED for eval of AMS and visual/auditory hallucinations. He has a LUE pronator drift (NIHSS1) and SCOTT. There is c/f reperfusion injury VS acute ETOH withdrawal. Interval History: (per hospital medicine) bMRI from overnight showing evidence of acute small posterior frontal lobe infarct. Social History: Home setup: Pt lives with his brother in a two level home with 2 CLARIBEL and a FOS with B railings to the second floor where pt's bedroom is located. The downstairs bathroom has a walk-in shower. Baseline Mobility/Prior level of function: Ambulates independently without a device, independent with most ADLs but is not able to put on socks. Does not drive. Pt has h/o several recent falls, all on day of admission. DME: cane, rolling walker Precautions/Special Considerations: fall risk; activity as jacquie; NPO; SBP<120 Mobility and Positioning Recommendations: ?? Pt. to utilize rolling walker and supervision for ambulation and transfers with nursing. ?? Please encourage up to chair for meal times as able. ?? Pt encouraged to ambulate frequently with staff, getting into the bathroom for toileting and walking out in the adan >/= 3 times daily as able. Subjective: Pt states that his bed can be moved down to the first floor and his SO can stay with him for a few days. Objective: Patient seen for physical therapy and demonstrated the following: ?? Pain: none at rest, endorses L knee pain with mobility ? Vital Signs: HR 67bpm, SpO2 96% on RA, BP 136/62 ? Mental status: alert, cooperative, oriented ? Safety Awareness: WFL ? Command followin% of the time and requires repetition/cues ? Attention: WFL ? Vision: blind in L eye, has prosthetic, limited vision in R eye ? Skin: abrasion on R knee from recent fall ? Musculoskeletal: ROM: B LEs grossly WFL Strength: B LEs WFL ? Bed Mobility: Supine to Sit: NA, pt already OOB and did not have difficulty Sit to Supine: NA ? Transfers: Sit to Stand: supervision with rolling walker, encouraged pt to extend his knee 2/2 pain Stand to Sit: supervision with rolling walker Bed to Chair: NA ? Gait: Distance: 150ft Device used: rolling walker Level of assist: supervision Gait mechanics: Demonstrates antalgic gait 2/2 L knee pain, but was steady with a walker using reciprocal gait pattern. ? Stairs: Ascended and descended one 8 platform step with walker and supervision. ? Seated Balance: Static: good, sat at EOB with supervision Dynamic: good ? Standing Balance: Static: good with walker Dynamic / Gait: good with walker ? Education: patient has been educated on Bed mobility, Transfers, Assistive device/technique, Safety , Precautions/protocol, Role of therapy and Discharge planning and verbalizes and demonstrates understanding. Patient status, treatment, and mobility recommendations discussed with nursing. Pt left in bedside recliner chair, with all needs met and with call mcdonnell in reach and ice pack on Lknee following visit. Assessment: Pt seen today for physical therapy treatment # 2. Session focused on functional mobility, gait and stair negotiation training. Pt is progressing well and has sufficiently met functional goals at this time. Pt is still limited by L knee pain, but compensates well and is steady while ambulating with a walker and negotiating steps. Pt confirmed that he can stay on the first floor of his home and will have someone staying with him. Recommend d/c home with assistance when medically stable. No further physical therapy needs anticipated, will monitor in case needs arise. Discharge Recommendations: Based on the current findings, Anticipated Discharge Disposition (PT): home with supervision when medically ready for hospital discharge. Consult Recommendations: No other consults recommended at this time. Equipment needs: Patient has all necessary equipment Physical Therapy Goals: To be achieved by 08/02/21: 1. Pt. to demonstrate knowledge of safety limitations and precautions and will appropriately request assistance for functional activities and to mobilize. ACHIEVED 2. Pt. to perform bed mobility with modified independence using bed features or adaptive equipment as needed. ACHIEVED 3. Pt. to perform sit to stand and stand pivot transfers with supervision using a front wheeled walker. ACHIEVED 4. Pt. to ambulate 150 feet with supervision using a front wheeled walker. ACHIEVED 5. Pt. to ambulate up/down at least 2 step/stairs using two rails with supervision. ACHIEVED using platform step and walker Plan: Therapy Frequency (PT): Monitor Time IN / OUT: 5265-5497 Total Minutes, Physical Therapy: 25 (TEFx2). Melva Diego PT DPT 07/20/2021 Pager: [phone] Physical Therapy Inpatient Rehabilitation Department * Tabitha Del Castillo MD - 07/20/2021 8:12 AM EDT [facility] Medicine Progress Note Wero Doroteo 71 y.o. 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 Patient doing much better today. bMRI from overnight showing evidence of acute small posterior frontal lobe infarct. Neurology consulted and saying nothing to do. No evidence of metastasis. Moderate to severe focal stenosis of P2 segment L posterior cerebral artery with mild proximal stenosis. 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 As we are beyond the 48-72 hr acute period thereis nothing clinical to do. Continue DAPT. Patient may be benefiting from high dose IV thiamine repletion. We will keep him here today and finish IV therapy. Send him home on 5 days oral. Improvement may be incidental, or may be related to wernickes. Discharge home planning for tomorrow. 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 #2.4 cm pancreatic head tumor -unremarkable LFTs and ammonia -EUS EGD biopsy 07/28 ?? #high risk prostatic cancer -leuprolide injection 06/28 (every 3 months) -radiation planning, simulation completed 2 weeks ago Chronic issues: 1. Hypertension: home amlodipine, coreg, lisinopril 2. HLD: home lipitor 80 3. 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 Give insulin correction 4. OLGA: home CPAP ?? #Housekeeping: - DVT PPx: subQ heparin - GI PPx: not indicated - Diet: carb controlled diet - Level of care: floor status ?? Discussed Advanced Directives and Code Status. The patient wishes to be full code. Attending Attestation Please see Cai's note for details of the patient history of presentation and data. I have discussed, reviewed and agree with the documented History, Physical findings, Assessment and Plan of care. Acute encephalopathy on admission appears to be caused at least in part by acute stroke. He is already on anticoagulants, a statin, and antihypertensives. Cont thiamine and folate and plan for d/c tomorrow if stable overnight I have examined the patient myself and personally reviewed all studies. In addition, I certify thatI am a [facility] credentialed attending provider with admitting privileges and that the patient meets or has met medical necessity to require an inpatient IPI level of care meeting a minimum of two midnights or is on the [facility] inpatient only procedure list (status C) Tabitha Del Castillo MD Subjective: Overnight Events: slept on CPAP. SBP 130-150. Alert and interactive this morning. No change in vision (still with vision loss in the right). Wero is feeling back to his normal self today. bMRI done. ROS: [x] Review of systems not stated above otherwise negative Objective: Patient Vitals: Last value Range last 24 hrs Temperature Temp: 36.8 ??C (98.2 ??F) Temp: [36.4 ??C (97.5 ??F)-37.3 ??C (99.14 ??F)] Heart Rate Heart Rate: 62 Heart Rate: [53-72] Blood Pressure BP: 131/74 BP: (101-153)/(44-74) Respiratory Rate Resp: 16 Resp: [9-23] SpO2 SpO2: 98 % SpO2: [93 %-99 %] Weight trend: Patient Vitals for the past 168 hrs: Weight 07/20/21 0500 107.1 kg (236 lb 1.8 oz) 07/18/21 2336 105 kg (231 lb 7.7 oz) Intake/Output Summary (Last 24 hours) at 07/20/2021 0812 Last data filed at 07/20/2021 0600 Gross per 24 hour Intake 1190 ml Output 365 ml Net 825 ml Physical Exam: General: Pt is alert, well appearing, and in no acute distress. Eyes: Pupils equal and reactive to light and accomodation. No external erythema. Chest: Lungs clear to auscultation bilaterally; no wheezing. Heart: Regular rate and rhythm. S1, S2 present. No murmurs or extra heart sounds. Abdomen: Bowel sounds present in all 4 quadrants. Soft, nontender, no masses noted. Neurological: Cranial nerves II-XII grossly intact. Extremities: No edema. Skin: Warm, dry, no rash on limited exam. Relevant data: BMRI 07/20: 1. Single small focus of hyperintense signal on diffusion-weighted images In the deep white matter of the right posterior frontal lobe suspicious for small site of recent infarction. ?? 2. Three small foci of susceptibility-related signal loss at mccrary-white junctions in the right cerebral hemisphere. Differential diagnosis for this symmetric phenomenon includes small emboli, amyloidangiopathy, and sequela of trauma. ?? 3. No evidence of cerebral metastasis. ?? 4. Moderate to severe focal stenosis of the P2 segment of the left posterior cerebral artery. Sitesof more mild stenosis at the proximal M2 segment of the left inferior division and in the P2 segment of the right posterior cerebral artery Cory Cai MD Hospital medicine service, PGY1 Pager [phone] * Wojciech Madera MD - 07/20/2021 7:04 AM EDT Vascular Surgery Progress Note Patient ID Wero Sadler is a 71 y.o. male with history of HTN. 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 Episode of R monocular blindness. Now s/p R TCAR and admitted with AMS. Operations This Hospitalization None Subjective No pain Mental status improving Non-focal exam Objective Temp: [36.7 ??C (98 ??F)-37.1 ??C (98.8 ??F)] Heart Rate: [62-74] Resp: [9-21] BP: (110-161)/(45-79) SpO2: [93 %-98 %] Heart Rate from SpO2: [61 bpm-73 bpm] Body mass index is 32.93 kg/m??. Intake/Output Summary (Last 24 hours) at 07/21/2021 0704 Last data filed at 07/21/2021 0400 Gross per 24 hour Intake 1575 ml Output 925 ml Net 650 ml Physical Exam General: alert, cooperative, NAD HEENT: normocephalic, atraumatic Neck: trachea midline, healing TCAR incsion Heart: regular rate Pulmonary: non-labored breathing Abdomen: soft, non tender, non distended Neuro: no focal deficits grossly Extremities: warm and pink Labs Last 3 wbc, hgb, hct plt Recent Labs 07/21/21 0030 07/20/21 0015 07/19/21 0115 WBC 6.9 6.7 6.5 HGB 10.3* 10.1* 10.9* HCT 30.8* 30.3* 32.4* PLATELET 229 226 216 Last 3 Lytes Recent Labs 07/21/21 0030 07/20/21 0015 07/19/21 0115 NA 136 137 138 K 3.7 3.9 3.6 CL 103 104 104 CO2 21* 20* 21* BUN 20 16 9* CREATININE 0.65* 0.59* 0.56* Last Ca, Mg, Phos Recent Labs 07/21/2129 CALCIUM 8.7 PHOS 3.8 MAGNESIUM 0.96 Last 3 Coags Recent Labs 07/18/212032 PT 12.3 INR 1.1 PTT 30 Microbiology None New Studies None Assessment & Plan Wero Sadler is a 71 y.o. male s/p TCAR and re-admitted with AMS. Thought to be secondary to delirium vs withdrawal. No focal deficits. Continue DAPT. Plan for vascular surgery follow-up as arranged. Please page with further questions or concerns. Charleen Madera p. [phone] 07/21/2021 7:04 AM * Tammy Mukherjee RCP - 07/19/2021 1:38 PM EDT 07/19/21 1202 Oxygen Therapy O2 Device RA SpO2 96 % Resp 18 Pt on room air jacquie well Pt has no treatments ordered at this time Will continue to monitor pt * Esau Mcclain - 07/19/2021 10:18 AM EDT ICU PROGRESS NOTE DOA: 07/18/2021 Room: [place] [address]- Length of Stay: 1 ICU Length of Stay 14h Wero Sadler ( ) is a 71 y.o. male PMH of ETOH abuse (lasy drink 07/13), HLD, DMII, colorectal cancer, CVA, OLGA, CAD s/p 3 vessel CABG, L eye prosthesis d/t childhood injury, prostate cancer (currently undergoing chemo/radiation therapy), and R ICA stenosis s/p CEA at OSH, complicated by recurrent stenosis and subsequent visual loss in R eye that recently underwent R TCAR (07/14). Discharged home (07/17) on DAPT and Lisinopril for hypertensive postop period. Pt transferred from [facility] after waking up on 07/18 altered apparently fallen out ofbed yesterday morning and found by his brother. Pt states he fell 3x that morning d/t imbalance. Presented to ED for eval of AMS and visual/auditory hallucinations. He has a LUE pronator drift (NIHSS1) and SCOTT. There is c/f reperfusion injury VS acute ETOH withdrawal. 24hr events: -NAEO -slept well, no complaints this morning -No SCOTT, visual hallucinations, no nausea < last Ativan 2 mg 8pm yesterday for agitation with no effect -Confused about his NG tube after waking up -Vasc surg recommends BP sys < 120, cont on cardene ggt Medications: Scheduled Meds: ??? heparin (porcine) 5,000 Units Subcutaneous Q8H MARLEE ??? insulin lispro 2-12 Units Subcutaneous Q4H MARLEE ??? amLODIPine 10 mg Per NG tube Daily ??? aspirin 81 mg Per NG tube Daily ??? atorvastatin 80 mg Per NG tube QPM ??? carvediloL 25 mg Per NG tube BID WC ??? clopidogreL 75 mg Per NG tube Daily ??? folic acid 1,000 mcg Per NG tube Daily ??? lisinopriL 20 mg Per NG tube Daily ??? multivitamin with minerals 1 tablet Per NG tube Daily ??? senna-docusate 2 tablet Per NG tube BID ??? thiamine 100 mg Per NG tube Daily Continuous Infusions: ??? niCARdipine 12.5 mg/hr (07/19/21 0855) PRN Meds:.bisacodyL, LORazepam OR LORazepam OR LORazepam, glucose 40% oral geL OR dextrose 10% OR glucagon, acetaminophen, magnesium hydroxide, Potassium supplement in solution Vitals: Temp: [36.7 ??C (98.1 ??F)-37.3 ??C (99.14 ??F)] Heart Rate: [57-82] Resp: [14-24] BP: (106-168)/(50-79) SpO2: [93 %-100 %] Heart Rate from SpO2: [57 bpm-85 bpm] Ventilator Settings: Physical Exam: Cons: NAD, resting comfortably in bed this morning, does not appear anxious or agitated, no sweats Cardiac: distant heart sounds Pulm: CTAB, no W/R/R GI: S/NT/ND, BS+ Neuro Exam: MS: Awake, alert, oriented to person, month and year, not place, following commands in all extremities, language is full and fluent CN: R pupil is reactive to light, R EOMI, V1-3 intact to touch, hearing at baseline, TM, palate elevates symmetrically, 5/5 shoulder strength and turns his head left and right, tongue midline Motor: Normal bulk and tone throughout, developer prover mechanical is 4/5 in L hand, toes downward, no pronator drift RUE 5/5 LUE 5/5 RLE 5/5 LLE 5/5 Sensory: Intact to touch throughout Reflexes: 2+ RUE biceps and brachiocephalic Coord: FTN not able to do d/t vision loss I/Os: Intake/Output Summary (Last 24 hours) at 07/19/2021 1018 Last data filed at 07/19/2021 1000 Gross per 24 hour Intake 1949 ml Output 2000 ml Net -51 ml Labs: Micro: Imaging/Studies: 07/18 CT/CTA head and neck -patent R carotid stent graft and patent intracranial vessels 07/19 Transcranial doppler -Interpretation: ??Patent MCA vessels bilaterally with no evidence of reperfusion hyperemia. ??Comparison: No previous study in our vascular lab database for comparison. ?? Assessment/Plan: 71yo M s/p R TCAR 07/14 for recurrent stenosis of R ICA presented with AMS and V/A hallucinations who is here d/t concern for reperfusion injury to the R eye versus acute ETOH withdrawal on a CIWA scale. 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 Patient states his vision is 100% but presents with profound loss of visual acuity, light/dark perception intact with flashlight, although incorrectly states that room is dark, he is able to see shadows. Pt states he fell 3x yesterday morning d/t his balance being off, possible B12 vitamin deficiency. Transcranial doppler showed no evidence of reperfusion hyperemia. Patient denies SCOTT this morning. Possible delirium tremens versus delirium causing visual hallucinations. He is scoring low (1+) on CIWA this morning for disorientation. He is oriented to person, month and year, but not to place, states he is in a psych colón. He received ativan last night for reported agitation. This morning patient is not anxious or agitated, states no hallucinations or nausea, no sweats or tachy, and no tremors noted. Will order Tox screen. Neuro - - q4 neurochecks - Continue CIWA protocol for 2 days -CIWA 1+ - MVI/Thiamine/folate - Analgesia: PRN Tylenol - Sedation: None - Continue DAPT (Plavix 75 mg and Asa 81 mg qd) - Continue Cardene IV infusion 7.5 mg/hr - Increase Lisinopril to 40 mg qd - Continue Carvedilol 25 mg BID - Continue Amlodipine 10 mg qd - Vascular Surg recs: - Recommend SBP <120. Will liberalize BP goal as symptoms improve - Recommend transcranial doppler in AM - Cont daily ASA/ Plavix - Transcranial doppler this morn CV - - SBP goal < 120 - labetalol, hydralazine for SBP > 120 - NS IVF Pulm - On 4 L NC SpO2 > 95 - Wean NC GI - - Swallow study tolerated - Remove DHT - Normal diet FEN/ - - maintain euvolemia, I=O Net -0.6 L - Goal Na 135-145, K > 4, Mg > 1 - ICU potassium repletion protocol Heme - - goal Hgb > 7, INR < 1.5, Platelets > 50k - SCDs, SQH for DVT Endo - - goal glucose 120-180 - ISS ID - - acetaminophen PRN Core: Code status: FULL code @[email or web address]@ Dispo - ICU //////////////////////////////////////////////////////////////////////////////// //////////////////// /////////////////////////////////////////////////Attestation: IS PATIENT CRITICALLY ILL ? Is there a high potential of sudden, clinically significant, or life threatening deterioration? YES Is there a need for direct personal assessment and management to treat/prevent multiple vital organfailure/deterioration? YES If this patient is not critically ill, the reason for continued hospitalization is n/a. PATIENT IS CRITICALLY ILL WITH THESE DIAGNOSES BEING MANAGED BY [facility] TEAM: Esau Mcclain, MS4 07/19/2021 10:18 AM * Melva Diego, PT - 07/19/2021 9:59 AM EDT Physical Therapy Evaluation Patient profile: Wero Sadler is a y.o. male PMH of ETOH abuse (last drink 07/13), HLD, DMII, colorectal cancer, CVA, OLGA, CAD s/p 3 vessel CABG, L eye prosthesis d/t childhood injury, prostate cancer (currently undergoing chemo/radiation therapy), and R ICA stenosis s/p CEA at OSH, complicated by r ecurrent stenosis and subsequent visual loss in R eye that recently underwent R TCAR (07/14). Discharged home (07/17) on DAPT and Lisinopril for hypertensive postop period. ?? Pt transferred from [facility] after waking up on 07/18 altered apparently fallen out ofbed yesterday morning and found by his brother. Pt states he fell 3x that morning d/t imbalance. Presented to ED for eval of AMS and visual/auditory hallucinations. He has a LUE pronator drift (NIHSS1) and SCOTT. There is c/f reperfusion injury VS acute ETOH withdrawal. Patient with the following active problems: Past Medical History: Diagnosis Date ??? 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 can not read. can see shadows. No vision in left eye since child saavedra accident. ??? Cancer prostate, colorectal ??? Claudication ??? Colon adenocarcinoma 2009 recieved chemo in [place] ??? Coronary artery disease ??? Coronary artery [...] 9.19) performed by Basim Barr MD at [facility] MAIN OR ??? PRO LASER VAPORIZATION SURGERY PROSTATE, COMPLETE Midline 02/02/2021 CYSTO, LASER TURP (WRVU 12.15) performed by Cayetano Engle MD at [facility] MAIN OR ??? PRO PLACE TRANSCATHETER STENT, CCA W EMBOLIC PROECT Right 07/14/2021 @TRANSCATH INTRAVASCULAR STENT,CAROTID,PERC,W\EMBOLIC PROT. (WRVU 18) performed by Basim Barr MD at [facility] MAIN OR ??? PRO TOTAL HIP ARTHROPLASTY Left 10/10/2020 TOTAL HIP ARTHROPLASTY - POSTERIOR (WRVU 20.72) performed by Ismael Wu MD at [facility] MAIN OR Social History: Home setup: Pt lives with his brother in a two level home with 2 CLARIBEL and a FOS with B railings to the second floor where pt's bedroom is located. The downstairs bathroom has a walk-in shower. Baseline Mobility/Prior level of function: Ambulates independently without a device, independent with most ADLs but is not able to put on socks. Does not drive. Pt has h/o several recent falls, all on day of admission. DME: cane, rolling walker Precautions/Special Considerations: fall risk; activity as jacquie; NPO; SBP<120; DHT Mobility and Positioning Recommendations: ?? Pt. to utilize rolling walker and CGA-min A for ambulation and transfers with nursing. ?? Please encourage up to chair for meal times as able. ?? Pt encouraged to ambulate frequently with staff, getting into the bathroom for toileting and walking out in the adan >/= 3 times daily as able. Subjective: Pt is hoping to get his R hip replaced but his surgery has been rescheduled multiple times. Objective: Pt seen for evaluation today ??? Pain: none at rest, endorses R knee pain with mobility ??? Vital Signs: HR 58bpm, SpO2 96% on RA, BP 128/52 (supine), 111/59, 101/62 (seated), 93/60 (after ambulating) ?? Mental status: alert, cooperative ?? Orientation: oriented to self, location, situation and month/year but not exact date (off by 2 days) ?? Safety Awareness: decreased safety awareness ?? Command followin% of the time and requires repetition/cues ?? Attention: distractible ?? Vision: blind in L eye, has prosthetic, limited vision in R eye ?? Skin: abrasion on R knee from recent fall ?? Musculoskeletal: ROM: B LEs grossly WFL Strength: B LEs at least 3/5 ?? Bed Mobility: Supine to Sit: supervision Sit to Supine: NA ??? Transfers: Sit to Stand: min Ax2 with rolling walker, required two attempts Stand to Sit: CGAx2 with rolling walker Bed to Chair: min Ax2 with rolling walker, required verbal cues for attention to task ??? Gait: Distance: 3ft from bed to chair Device used: rolling walker Level of assist: min Ax2 Gait mechanics: Decreased gait speed, decreased B step length, pt had difficulty bearing weight through R LE 2/2 knee pain. Pt appeared confused regarding the task and required several verbal and tactile cues to step forward then turn to sit in his chair. ??? Stairs: NA ??? Seated Balance: Static: good, sat at EOB with supervision Dynamic: fair, has difficulty leaning forward to don socks ??? Standing Balance: Static: fair with walker, CGA provided for safety Dynamic / Gait: fair with walker, min A required for balance/weight shifting ?? Education: patient has been educated on Bed mobility, Transfers, Assistive device/technique, Safety , Precautions/protocol, Role of therapy and Discharge planning and verbalizes and demonstrates understanding. Patient status, treatment, and mobility recommendations discussed with nursing. Assessment: Pt seen today for physical therapy initial evaluation. Pt presents with pain, decreasedstrength, impaired balance, visual impairment, and decreased attention. These impairments currentlylimit pt's ability to safely and independently perform functional mobility tasks, including bed mobility, transfers, ambulation, stair negotiation, and daily activities. Pt was agreeable to transferring OOB to a chair, but had difficulty bearing weight through his R knee 2/2 pain associated with recent falls. Pt also demonstrated decreased attention to task and required ongoing cues to sequence taking steps between bed and chair. Pt is functioning below his independent baseline but will likely i mprove with time and practice. Recommend d/c home with assistance when medically stable, (vs inpatient rehab, pending functional progress while in the hospital.) Pt will benefit from ongoing physicaltherapy to address the above impairments and facilitate return to PLOF. Discharge Recommendations: Based on the current findings, Anticipated Discharge Disposition (PT): home with supervision (vs inpatient rehab) when medically ready for hospital discharge. Consult Recommendations: No other consults recommended at this time. Equipment needs: Patient has all necessary equipment Goals: To be achieved by 08/02/21: 1. Pt. to demonstrate knowledge of safety limitations and precautions and will appropriately request assistance for functional activities and to mobilize. 2. Pt. to perform bed mobility with modified independence using bed features or adaptive equipment as needed 3. Pt. to perform sit to stand and stand pivot transfers with supervision using a front wheeled walker. 4. Pt. to ambulate 150 feet with supervision using a front wheeled walker. 5. Pt. to ambulate up/down at least 2 step/stairs using two rails with supervision. Plan: Therapy Frequency (PT): 2-4 times/wk for therapy including balance training, gait training, patient/family education, stair training, strengthening and transfer training. 2017 PT Evaluation Code Rationale: ?? Diagnosis & Pertinent Co-Morbidities, personal factors, and present illness affecting Plan of Care: (see above); Additional personal factors or co- morbidities that impact plan: ?? Total # of Factors: 0 1-2 3+ X (admitted with reperfusion injury VS acute ETOH withdrawal; multiple comorbidities; recent surgeries including CEA and JIMI; FOS at home) ?? Examination of body system impairments, functional limitations and behaviors, and/or participation restrictions. Addressing 1-2 elements Addressing 3 + elements Addressing 4 + elements X ?? Clinical presentation: See assessment above. Stable/Uncomplicated Evolving/Fluctuating Symptoms Unstable/Unpredictable X (pain, decreased attention) ?? Clinical decision making of moderate complexity based on pt's functional performance as outlinedin this evaluation. Time IN / OUT: 7106-9029 Total Minutes, Physical Therapy: 26 (eval). Melva Diego, PT DPT 07/19/2021 Pager: [phone] Physical Therapy Inpatient Rehabilitation Department * Patricia Briggs MD - 07/19/2021 9:25 AM EDT ICU PROGRESS NOTE DOA: 07/18/2021 Room: [address] Length of Stay: 1 ICU Length of Stay 13h Wero Sadler ( ) is a 71 y.o. male with PMH of ETOH abuse (last drink 07/13), HLD, DM II, colorectal cancer, CVA, OLGA, CAD status post three- vessel CABG, left eye prosthesis due to an injury as a child, prostate cancer (currently undergoing chemo/radiation), and history of right ICA stenosis status post CEA at outside hospital complicated by recurrent stenosis and subsequent visual loss in the right eye that recently underwent right TCAR on 07/14/2021 with the vascular surgery service and discharged on 07/17. Post-procedure, the patient reported improved vision though also had worsening hallucinations and confusion c/f cerebral reperfusion syndrome vs etoh withdrawal. He was started on Cardene for goal SBP < 140 and transferred to . On arrival was agitated and received 2mgof ativan without any effect. Vascular surgery was consulted, suggested lowering BP to < 120 with subsequent improvement in symptoms. Medications: Scheduled Meds: ??? heparin (porcine) 5,000 Units Subcutaneous Q8H MARLEE ??? insulin lispro 2-12 Units Subcutaneous Q4H MARLEE ??? amLODIPine 10 mg Per NG tube Daily ??? aspirin 81 mg Per NG tube Daily ??? atorvastatin 80 mg Per NG tube QPM ??? carvediloL 25 mg Per NG tube BID WC ??? clopidogreL 75 mg Per NG tube Daily ??? folic acid 1,000 mcg Per NG tube Daily ??? lisinopriL 20 mg Per NG tube Daily ??? multivitamin with minerals 1 tablet Per NG tube Daily ??? senna-docusate 2 tablet Per NG tube BID ??? thiamine 100 mg Per NG tube Daily Continuous Infusions: ??? sodium chloride 0.9% 75 mL/hr (07/19/21 0210) ??? niCARdipine 12.5 mg/hr (07/19/21 0855) PRN Meds:.bisacodyL, LORazepam OR LORazepam OR LORazepam, glucose 40% oral geL OR dextrose 10% OR glucagon, acetaminophen, magnesium hydroxide, Potassium supplement in solution Vitals: Temp: [36.7 ??C (98.1 ??F)-37.3 ??C (99.14 ??F)] Heart Rate: [59-82] Resp: [14-24] BP: (106-168)/(50-79) SpO2: [93 %-100 %] Heart Rate from SpO2: [58 bpm-85 bpm] Physical Exam: Cons: NAD Cardiac: RRR S1S2 Pulm: CTAB, no W/R/R GI: S/NT/ND, BS+ MSK: WWP, no C/C/E Neuro Exam: MS: Awake, alert, oriented to person, time and president, naming, and comprehension intact, language is full and fluent CN: Right pupil 4mg and briskly reactive, EOMI, +light and movement perception in the right eye, V1-3 intact to touch, FS, hearing at baseline, TM, palate elevates symmetrically Motor: Normal bulk and tone throughout RUE 5/5 LUE 4+/5, no drift RLE 5/5 LLE 5/5 Sensory: Intact to touch throughout, no neglect I/Os: Intake/Output Summary (Last 24 hours) at 07/19/2021 0925 Last data filed at 07/19/2021 0800 Gross per 24 hour Intake 1642 ml Output 1925 ml Net -283 ml Labs: Last 3 wbc, hgb, hct plt Recent Labs 07/19/2111407/18/21203207/14/21 0716 WBC 6.5 7.1 7.4 HGB 10.9* 11.8* 13.0* HCT 32.4* 35.1* 39.4* PLATELET 216 219 234 Last 3 Lytes Recent Labs 07/19/2111407/18/21203207/14/21 0716 NA 138 138 138 K 3.6 3.7 4.3 CL 104 102 103 CO2 21* 22 22 BUN 9* 9* 13 CREATININE 0.56* 0.62* 0.71* Last 3 LFTs Recent Labs 07/18/212032 AST 22 ALT 16 ALKPHOS 96 BILITOT 1.4* BILIDIR 0.3 Last Ca, Mg, Phos Recent Labs 07/19/21114 CALCIUM 8.6 PHOS 3.2 MAGNESIUM 1.06 Last 3 Coags Recent Labs 07/18/212032 PT 12.3 INR 1.1 PTT 30 Last 3 TFT Recent Labs 07/18/212032 TSH 4.86* Last 3 Lipids Recent Labs 07/18/212032 CHLPL 151 HDL 38 LDLCHOL 81 TRIG 162 Micro: - sarscov2 negative Imaging/Studies: - I have reviewed all imaging for this admission. Assessment/Plan: Neuro - Visual, auditory and tactile hallucinations: could be secondary to delirium, +/- Alo Bonnet syndrome, possibly cerebral hyperperfusion syndrome though patient denies headache. Not scoringon CIWA so DT is less likely. - q4 neurochecks - Continue CIWA protocol - Thiamine, folate, multiv - Send tox screen - SBP < 120 per vascular - Continue DAPT, statin - TCDs without evidence of hyperperfusion though BP is currently controlled and symptoms resolved. CV - HTN, CAD s/p CABG x 3 - BP goals as above - Vascular surgery following Pulm - OLGA on home CPAP - Goal PaO2 > 60, paCO2 35-45, O2 sats > 92% - IS at bedside - Nebs PRN GI - - Bedside dyshagia - PO diet as tolerated - maintain bowel reg FEN/ - urinary retention - maintain euvolemia, I=O - Goal Na 135-145, K > 4, Mg > 1 - ICU potassium repletion protocol - DC witt Heme - - goal Hgb > 7, INR < 1.5, Platelets > 50k - SCDs, SQH for DVT ppx Endo - - goal glucose 120-180 --> Accuchecks and ISS ID - afebrile no leukocytosis - Reculture q72hr for temp > 101F --> UA, blood cx, sputum cx, CSF cx, CXR - Monitor off antibiotics - acetaminophen PRN Core: Code status: FULL Analgesia None needed Sedation None HOB > 30 degrees SBT Not intubated VAP Bundle Not Intubated Ulcer Prophylaxis Not indicated Bowel Regimen Adequate Feeding NPO DVT Prophylaxis SQH and SCDs Glucose 120-180 Controlled without insulin requirement De-escalation of Antibiotics Not applicable Indwelling Tubes + Lines Peripheral IV Skin Daily Nursing Skin Breakdown Risk Assessment Rehab Services Consulted PT/OT: Consult ordered; recs pending 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 Is there a high potential of sudden, clinically significant, or life threatening deterioration? No Is there a need for direct personal assessment and management to treat/prevent multiple vital organfailure/deterioration? No If this patient is not critically ill, the reason for continued hospitalization is PT eval. Patricia Briggs MD 07/19/2021 9:25 AM * Salome Rodriguez APRN - 07/18/2021 10:16 PM EDT DHT Placement DHT placed at 2130 with no complications, advanced to 55cm without resistance in R nare. No desaturation pre, during, or after procedure. No bleeding. CXR confirms proper placement, DHT advanced 5cm further without issue. Bridled at 60cm. Salome Rodriguez APRN documented in this encounter H&P Notes * Tabitha Del Castillo MD - 07/19/2021 1:19 PM EDT Admission H&P Patient Name: WERO SADLER Date of : 1950 Age: 71 y.o. Hospital Admit Date: 07/18/2021 Inpatient Attending: Patricia Briggs MD PCP: Alo Carey DO Presenting Diagnosis/Chief Complaint: David Sadler is a 71 yo male who is admitted from OSH on 07/18, 1 day after discharge s/p vascularsurgery TCAR, for hallucinations and altered mental status now transferred from MICU to hospital medicine service for definitive evaluation and rehabilitation. History of Present Illness: Wero Sadler is a 71 y.o. 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 Wero had right CEA after lesion found in June 2018 and left CEA with CABG in December 2018 in [place]. He had recurrence of left tunnel vision while working that persisted as 99% vision loss. 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 He [place] [facility] [place] with good result and recovery of vision. He was discharged home 07/17 in stable condition. Wero brothers found him altered with visual hallucinations on 07/18 so they called vascular surgery and brought him to ED where his SBP was [id number]. He was transferred [place] [facility] [place]. Originally thought to have cerebral repe rfusion injury, MICU team titrated nicardipine to SBP<120. He was having headache and LUE pronator drift. CTA showed patent RCA and cerebral vessels. His ammonia, LFT's, glucose, TSH, electrolytes and BUN have all been normal range this hospital stay. On my visit with Wero he is lethargic, with eyes closing while we talk. He is forgetful, but oriented to person, place and time. He is able to give most of the following history. His last drink was a shot of black velasco vodka the night before surgery 07/13. 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 He has never been hospitalized for withdrawal or seizure. On chart review GI has been following Wero for a new pancreatic head mass and ductal dilation. Urology and radiology has been following him for high risk prostatic cancer planning GnRH antagonist ( and June) and radiation therapy starting 07/28. He has no known brain mets, last brain MRI in December 2020. He has had nearly 20 pounds of weight loss over the last 1 month. Denies fatigue, generalized weakness, fatigue, malaise, headaches. Denies confusion at home, corroborated by family. Patient lives with son in private home. He has no psychiatric history. Never medicated, or hospitalized for any psychiatric concern/hallucination. Relevant data: 12/21/2020 brain MRI: no brain metastasis. No hyperacute, acute or subacute infarct. 11/17/2020 MRI pelvis: Lesion 1 PZ: PI-RADS 4. Clinically significant cancer is likely to be present. T2 location: axial series 10, image 24; sagittal series 4, image 11. ?? Lesion 2 TZ: PI-RADS 5. Clinically significant cancer is highly likely to be present. T2 location: axial series 10, image 23; sagittal series 4, image 21. Review of Systems: Per HPI Past Medical History: Past Medical History: Diagnosis Date ??? 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 can not read. can see shadows. No vision in left eye since child saavedra accident. ??? Cancer prostate, colorectal ??? Claudication ??? Colon adenocarcinoma 2009 recieved chemo in [place] ??? Coronary artery disease ??? Coronary artery dissection ??? CPAP (continuous positive airway pressure) dependence CPAP ??? Diabetes treated with medication ??? Gastroesophageal reflux ??? High blood pressure ??? Hyperlipidemia ??? Obstructive sleep apnea ??? Status post chemotherapy 2009 colon cancer ??? Stroke 11-24-19 Patient Active Problem List Diagnosis Code ??? [...] status, unspecified altered mental status type R41.82 Past Surgical History: Past Surgical History: Procedure Laterality Date ??? [...] 9.19) performed by Basim Barr MD at [facility] MAIN OR ??? PRO LASER VAPORIZATION SURGERY PROSTATE, COMPLETE Midline 02/02/2021 CYSTO, LASER TURP (WRVU 12.15) performed by Cayetano Engle MD at [facility] MAIN OR ??? PRO PLACE TRANSCATHETER STENT, CCA W EMBOLIC PROECT Right 07/14/2021 @TRANSCATH INTRAVASCULAR STENT,CAROTID,PERC,W\EMBOLIC PROT. (WRVU 18) performed by Basim Barr MD at [facility] MAIN OR ??? PRO TOTAL HIP ARTHROPLASTY Left 10/10/2020 TOTAL HIP ARTHROPLASTY - POSTERIOR (WRVU 20.72) performed by Ismael Wu MD at [facility] MAIN OR Social History: Occupational History ??? 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 Smoking status: Former Smoker Packs/day: 4.00 Years: 30.00 Pack years: 120.00 Types: Cigarettes Quit date: 1992 Years since quittin.3 ??? Smokeless tobacco: Never Used Vaping Use ??? Vaping Use: Never used Substance and Sexual Activity ??? Alcohol use: Yes Alcohol/week: 7.0 standard drinks Types: 7 Cans of beer per week ??? Drug use: Not Currently Family History: Family History Problem Relation Age of Onset ??? Diabetes Father Allergies: Allergies Allergen Reactions ??? Cyclobenzaprine Other (See Comments) Extreme moodiness ??? Other [Unclassified Drug] Other (See Comments) Had reaction to a dye used during vascular procedure at [facility] in [place]: shaking Has tolerated MRI and CT contrast. Medications: Medications Prior to Admission Medication Sig Dispense Refill Last Dose ??? atorvastatin (Lipitor) 80 mg Tablet Take 1 tablet by mouth every evening. 90 tablet 3 Unknown at Unknown time ??? acetaminophen (Tylenol) 500 mg Tablet Take 2 tablets by mouth every 6 hours. 30 tablet 1 Unknown at Unknown time ??? lisinopriL (Zestril) 20 mg Tablet Take 1 tablet by mouth daily. 90 tablet 3 Unknown at Unknown time ??? carvediloL (Coreg) 25 mg Tablet Take 25 mg by mouth 2 times daily (with meals). Unknown at Unknown time ??? glimepiride (Amaryl) 1 mg Tablet daily. Will take BID on days of dexamethasone Unknown at Unknown time ??? clopidogreL (Plavix) 75 mg Tablet daily. Unknown at Unknown time ??? metFORMIN (FORTAMET) 500 mg Tablet Extended Rel 24 hr Take 1,000 mg by mouth 2 times daily (with meals). Unknown at Unknown time ??? amLODIPine (Norvasc) 10 mg Tablet Take 10 mg by mouth daily. Unknown at Unknown time ??? aspirin EC 81 mg Tablet, Delayed Release (E.C.) Take 81 mg by mouth daily. Unknown at Unknown time ??? fish oil-omega-3 fatty acids 1,000 mg Capsule Take 2 g by mouth daily. Unknown at Unknown time PHYSICAL EXAM: Last value Range last 24 hrs Temperature Temp: 36.4 ??C (97.5 ??F) Temp: [36.4 ??C (97.5 ??F)-37.3 ??C (99.14 ??F)] Heart Rate Heart Rate: 53 Heart Rate: [53-82] Blood Pressure BP: 120/44 BP: (101-168)/(44-79) Respiratory Rate Resp: 18 Resp: [14-24] SpO2 SpO2: 96 % SpO2: [93 %-100 %] I/O last 3 completed shifts: In: 1264 [I.V.:1174; Other:90] Out: 1865 [Urine:1865] General: lethargic. Conversational Eyes: left eye prosthesis. Right eye visual field loss peripherally in all 4 quadrants grossly. Patient unable to consistently say how many fingers are being held out 4-6 feet away. Cardiovascular: regular rhythm. S1 and S2. No murmur. No rub Respiratory: Lungs clear to auscultation. No wheeze, rhonchi, rales. Abdominal: obese. supple Lower Extremities: No pedal edema. MSK: 5/5 in all four extremities Neuro: no focal deficit LABS: Recent Labs 07/19/21 0115 07/18/21 2033 07/14/21 0716 WBC 6.5 7.1 7.4 HGB 10.9* 11.8* 13.0* HCT 32.4* 35.1* 39.4* PLATELET 216 219 234 Recent Labs 07/19/21 0115 07/18/21203207/14/21 0716 NA 138 138 138 K 3.6 3.7 4.3 CL 104 102 103 CO2 * 22 22 BUN 9* 9* 13 CREATININE 0.56* 0.62* 0.71* Recent Labs 07/19/21 0115 07/18/21203207/14/21 0716 CALCIUM 8.6 9.0 9.0 MAGNESIUM 1.06 0.84 -- PHOS 3.2 2.7 -- Recent Labs 07/18/212032 PT 12.3 PTT 30 Recent Labs 07/18/212032 INR 1.1 Recent Labs 07/18/212032 AST 22 ALT 16 ALKPHOS 96 BILITOT 1.4* BILIDIR 0.3 Recent Labs 07/18/212032 TSH 4.86* Recent Labs 07/18/212032 HA1C 7.8* Lab Results Component Value Date CHLPL 151 07/18/2021 HDL 38 07/18/2021 CHOLHDL 4.0 07/18/2021 TRIG 162 07/18/2021 LDLCHOL 81 07/18/2021 Imaging/Diagnostics: Results for orders placed or performed during the hospital encounter of 07/18/21 XR Abdomen 1 view (Generic) (Exam End: 07/18/2021 9:45 PM) Impression Enteric feeding tube tip is subdiaphragmatic, at a level just distal to the expected gastroesophageal junction, overlying the proximal stomach. Further advancement is suggested. I have personally reviewed the image(s) and the resident's interpretation and agree with the findings, Yessi Rivas MD at 07/19/2021 8:38 AM Thank you for letting us participate in the care of this patient. If you are a health care provider and have any questions regarding this report, please contact the number below. For patients who have questions please contact the health director of health care marketing that requested your imaging first. Electronically signed by: Yessi Rivas MD, [facility] ([phone]), at 07/19/2021 8:38 AM Request For 2nd Read CT Head And Spine (Exam End: 07/18/2021 9:57 PM) Impression Recent surgical changes at the right carotid. No severe stenosis or occlusion. Thank you for letting us participate in the care of this patient. If you are a health care provider and have any questions regarding this report, please contact the number below. For patients who have questions please contact the health director of health care marketing that requested your imaging first. 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 Truthfully, given his oxygen desaturations off CPAP while sleeping, I think that there's a high likelihood that he was hypercarbic while sleeping at 430AM yesterday morning, was acutely confused and was transferred to [facility] [place]. Unfortunately I cannot see a VBG from the [facility] ED. Alternatively the more likely differential includes wernicke's/korsokaff, brain metastasis (recent findings of pancreatic head tumor and prostatic tumor), TCAR reperfusion syndrome. Transcranial doppler unremarkable. Less likely on the differential is acute ethanol withdrawal (less likely given negative CIWA scores), hospital related delirium, acute infection (negative UA, no respiratory symptoms), leuprolide reaction (no symptoms after March injection), acute cerebral infarct, and a psychosis event (no psychiatric history). We will move forward with the plan for evaluation below. Continue with rehabilitation. Plan: #poorly understood acute encephalopathy and hallucinations #s/p TCAR -check B1 level -check ABG -give high dose IV thiamine 2x days, continue orals as outpatient -c/w oral folate and multivitamin -delirium prevention protocol (day/night cycle, PT/OT, OOB, cluster care) -limit benzodiazepines and opiates -appreciate vascular surgery recs *DAPT with plavix 75 and aspirin 81 *SBP goal <140 --> use labetalol PRN for peaks in SBP, contact primary team if persistently above 140 mm Hg #bowel regimen -MARLEE pericolace -PRN bisacodyl #2.4 cm pancreatic head tumor -unremarkable LFTs and ammonia #high risk prostatic cancer -leuprolide injection 06/28 (every 3 months) -radiation planning 07/28 -brain MRI wwo contrast to ruleout metastasis *last bMRI in December 2020 Chronic issues: 1. Hypertension: home amlodipine, coreg, lisinopril 2. HLD: home lipitor 80 3. 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 Give insulin correction 4. OLGA: home CPAP #Housekeeping: - DVT PPx: subQ heparin - GI PPx: not indicated - Diet: carb controlled diet - Level of care: step down status, transfer to floor status after stable off nicardipine drip Discussed Advanced Directives and Code Status. The patient wishes to be full code. Cory Cai MD Hospital medicine service, PGY-1 Pager #[phone] Attending Staff Admission Documentation I certify that the patient requires: I have examined the patient myself on 07/19/21 and reviewed all labs and studies personally. Please see Dr. Cai documentation for details of the patient history of presentation and data. I have discussed, reviewed and agree with the documented history with ROS, physical findings, labs/studies, assessment and plan of care. Tabitha Del Castillo MD * Salome Rodriguez APRN - 07/18/2021 9:59 PM EDT Images from the original note were not included. NEUROCRITICAL CARE HISTORY & PHYSICAL Date of Admission: 07/18/2021 8:14 PM HPI: Wero Sadler is a 71 yo male with a pmh notable for ETOH abuse (last drink 07/13), HLD, DM II,colorectal cancer, CVA, OLGA, CAD status post three-vessel CABG, left eye prosthesis due to an injury as a child, prostate cancer (currently undergoing chemo/radiation), and history of right ICA stenosis status post CEA at outside hospital complicated by recurrent stenosis and subsequent visual lossin the right eye that recently underwent right TCAR on 07/14/2021 with the vascular surgery service.Surgical course apparently without complication and the patient discharged home 07/17/21 on DAPT anrdee new prescription for lisinopril as the patient was hypertensive in the postoperative period. Vision in eye improved post-operatively, Patient now present as a transfer from [facility] after waking up 07/18 altered, apparently having fallen out of bed this morning. He was found by his brother who called the vascular surgery team out of concern. Vascular surgery recommended presenting to the local ED for evaluation of AMS and visual hallucinations. ED exam notable for LUE pronator drift antigravity (NIHSS 1) and complaint of headache. CT/CTA of head and neck showed patent R carotid stent graft and patent intracranialvessels. Given the concern for reperfusion injury after revascularization to the right eye given the visual symptoms and the concern for acute alcohol withdrawal, patient was transferred to [facility] for tight blood pressure control with goal SBP less than 140 and for CIWA and benzodiazepine administration. He arrived to the [facility] around 1999 in stable condition, though delirious and hallucinating. ROS: Patient unable to participate due to mental status Past Medical History: Diagnosis Date ??? 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 can not read. can see shadows. No vision in left eye since child saavedra accident. ??? Cancer prostate, colorectal ??? Claudication ??? Colon adenocarcinoma 2009 recieved chemo in [place] ??? Coronary artery disease ??? Coronary artery [...] 9.19) performed by Basim Barr MD at [facility] MAIN OR ??? PRO LASER VAPORIZATION SURGERY PROSTATE, COMPLETE Midline 02/02/2021 CYSTO, LASER TURP (WRVU 12.15) performed by Cayetano Engle MD at [facility] MAIN OR ??? PRO PLACE TRANSCATHETER STENT, CCA W EMBOLIC PROECT Right 07/14/2021 @TRANSCATH INTRAVASCULAR STENT,CAROTID,PERC,W\EMBOLIC PROT. (WRVU 18) performed by Basim Barr MD at [facility] MAIN OR ??? PRO TOTAL HIP ARTHROPLASTY Left 10/10/2020 TOTAL HIP ARTHROPLASTY - POSTERIOR (WRVU 20.72) performed by Ismael Wu MD at [facility] MAIN OR Social History Tobacco Use ??? Smoking status: Former Smoker Packs/day: 4.00 Years: 30.00 Pack years: 120.00 Types: Cigarettes Quit date: 1992 Years since quittin.3 ??? Smokeless tobacco: Never Used Substance Use Topics ??? Alcohol use: Yes Alcohol/week: 7.0 standard drinks Types: 7 Cans of beer per week Medications Prior to Admission Medication Sig Dispense Refill Last Dose ??? atorvastatin (Lipitor) 80 mg Tablet Take 1 tablet by mouth every evening. 90 tablet 3 Unknown at Unknown time ??? acetaminophen (Tylenol) 500 mg Tablet Take 2 tablets by mouth every 6 hours. 30 tablet 1 Unknown at Unknown time ??? lisinopriL (Zestril) 20 mg Tablet Take 1 tablet by mouth daily. 90 tablet 3 Unknown at Unknown time ??? carvediloL (Coreg) 25 mg Tablet Take 25 mg by mouth 2 times daily (with meals). Unknown at Unknown time ??? glimepiride (Amaryl) 1 mg Tablet daily. Will take BID on days of dexamethasone Unknown at Unknown time ??? clopidogreL (Plavix) 75 mg Tablet daily. Unknown at Unknown time ??? metFORMIN (FORTAMET) 500 mg Tablet Extended Rel 24 hr Take 1,000 mg by mouth 2 times daily (with meals). Unknown at Unknown time ??? amLODIPine (Norvasc) 10 mg Tablet Take 10 mg by mouth daily. Unknown at Unknown time ??? aspirin EC 81 mg Tablet, Delayed Release (E.C.) Take 81 mg by mouth daily. Unknown at Unknown time ??? fish oil-omega-3 fatty acids 1,000 mg Capsule Take 2 g by mouth daily. Unknown at Unknown time Vital Sign Ranges: Last value Range last 24 hrs Temperature Temp: 36.8 ??C (98.2 ??F) Temp: [36.8 ??C (98.2 ??F)] Heart Rate Heart Rate: 82 Heart Rate: [77-82] Blood Pressure BP: 148/70 BP: (146-168)/(70-79) Respiratory Rate Resp: 18 Resp: [16-18] SpO2 SpO2: 100 % SpO2: [96 %-100 %] Art BP BP (Arterial Line): -- Lines/Drains/Airways: ?? PIVx2 ?? Witt ?? DHT Labs: Recent Results (from the past 24 hour(s)) Lactate, whole blood, send to lab [place] Result Value Ref Range Lactate WB 1.2 0.5 - 2.2 mmol/L Basic Metabolic Panel (non-fasting) Result Value Ref Range Glucose Lvl 160 65 - 199 mg/dL BUN 9 (L) 10 - 20 mg/dL Creatinine 0.62 (L) 0.80 - 1.50 mg/dL Sodium 138 135 - 145 mmol/L Potassium 3.7 3.5 - 5.0 mmol/L Chloride 102 98 - 107 mmol/L CO2 22 22 - 31 mmol/L Anion Gap 14 5 - 15 mmol/L Calcium 9.0 8.5 - 10.5 mg/dL Estimated GFR 98 >=60 mL/min/1.73 m?? Magnesium Result Value Ref Range Magnesium 0.84 0.69 - 1.07 mmol/L Phosphorus Result Value Ref Range Phosphorus 2.7 2.5 - 4.5 mg/dL Lipid Panel (Reflex Direct LDL) Result Value Ref Range Chol, Total 151 mg/dL Triglycerides 162 mg/dL HDL 38 mg/dL LDL Cholesterol 81 mg/dL Chol/HDL Ratio 4.0 ratio Lipid Interpretation See Note TSH Result Value Ref Range TSH 4.86 (H) 0.27 - 4.20 mcIU/mL Prothrombin Time Result Value Ref Range PT 12.3 9.4 - 12.5 sec INR 1.1 APTT Result Value Ref Range PTT 30 25 - 37 sec Hepatic Function Panel Result Value Ref Range Total Protein 6.7 6.1 - 8.0 g/dL Albumin 4.1 3.2 - 5.2 g/dL AST 22 0 - 39 unit/L ALT 16 0 - 55 unit/L Alk Phos 96 40 - 130 unit/L Total Bilirubin 1.4 (H) 0.2 - 1.3 mg/dL Bili, Direct 0.3 0.0 - 0.3 mg/dL Ammonia Result Value Ref Range Ammonia 12 (L) 16 - 60 mcmol/L ABO/Rh Typing Result Value Ref Range ABORh Type O Pos Antibody screen Result Value Ref Range Ab Screen Interp Negative Expires at 2359 on: 07/21/2021 Hemogram Result Value Ref Range WBC 7.1 4.0 - 9.5 x10(3)/mcL RBC 3.78 (L) 4.58 - 5.54 x10(6)/mcL Hemoglobin 11.8 (L) 13.7 - 16.5 g/dL Hematocrit 35.1 (L) 40.5 - 48.5 % MCV 92.9 82.9 - 93.1 fL MCH 31.2 27.5 - 32.1 pg MCHC 33.6 32.0 - 35.7 g/dL Platelets 219 145 - 357 x10(3)/mcL RDWSD 45.4 (H) 36.0 - 45.0 fL RDWCV 13.4 11.4 - 13.8 % MPV 9.9 7.6 - 12.9 fL nRBC % Auto 0.0 % nRBC Abs Auto 0.000 0.000 - 0.000 x10(3)/mcL Differential, Automated Result Value Ref Range Neutrophils % 64.1 % Neutr Abs (ANC) 4.57 1.70 - 6.10 x10(3)/mcL Lymphocytes % 21.2 % Lymphocytes Abs 1.5 0.9 - 3.2 x10(3)/mcL Monocytes % 10.7 % Monocyte Abs 0.8 0.3 - 0.9 x10(3)/mcL Eosinophils % 3.4 % Eosinophils Abs 0.2 0.0 - 0.4 x10(3)/mcL Basophils % 0.3 % Basophils Abs 0.0 0.0 - 0.1 x10(3)/mcL Immature Gran % 0.30 % Nidia Gran Abs 0.02 0.00 - 0.04 x10(3)/mcL ABORH Recheck Status Result Value Ref Range ABORH Type Recheck Completed Type and Screen Validity Result Value Ref Range T&S only valid at [facility] PO[place] Glucose Result Value Ref Range POC Glucose 146 65 - 199 mg/dL Imaging: CTH from [facility], 07/18 CTH/CTA pending second read EKG: From 10/06/2020. NSR, QTc 400 Physical Exam Constitutional: He is not in acute distress. Normal appearance. He is normal weight. HENT: Normocephalic and atraumatic. Nose normal. No congestion or rhinorrhea. Mucous membranes are moist. Oropharynx is clear. Eyes: Right pupils is round, and reactive to light. L eye prosthetic in place Cardiovascular: Normal rate and regular rhythm. Normal pulses. Normal heart sounds. Pulmonary: Pulmonary effort is normal. Normal breath sounds. Abdominal: Abdomen is flat. Bowel sounds are normal. Abdomen is soft. Musculoskeletal: Normal range of motion. Normal range of motion and neck supple. Skin: Skin is warm and dry. Capillary refill takes less than 2 seconds. Rolando complexion to nose. RTCAR surgical site open to air on R anterior neck Neurological: ?? Mental Status: He is lethargic, disoriented and confused. Can speak fluently, but does not respond to questions appropriately. Visual hallucinations. Seen miming feeding himself food, reaching to objects. ?? GCS: GCS eye subscore is 3. GCS verbal subscore is 4. GCS motor subscore is 6. ?? Cranial Nerves: No dysarthria or facial asymmetry. C/C/G intact. Blinks to threat in R eye. ?? Motor: No weakness, tremor, seizure activity or pronator drift. ASSESSMENT & PLAN: 71-year-old male s/p right TCAR 07/14/2021 for recurrent stenosis of the right ICA with subsequent return of vision to the right eye and right visual hallucinations in the setting of alcohol withdrawal. Patient admitted to the neuro ICU for tight blood pressure control with with concern for reperfusion injury to the right eye and also for treatment of acute alcohol withdrawal. CIWA scale will be implemented and blood pressure control to less than 140 will be the goal of treatment. 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 Check lipid panel # Pulm - - goal O2 sats > 92% - continue chest PT/pulm toileting # GI - - obtain bedside swallow screen - maintain NPO until formal NICKEL OPERATOR eval if pt fails bedside swallow eval - DHT placed for enteral medications upon admission - ADAT - maintain bowel reg # FEN/ - > Prostate cancer: plan for radiation therapy in near future. Currently undergoing > Hx of incomplete bladder emptying - NS while NPO - daily BMP, Mg, PO4 - witt placed for AUR, bladder scan >1L upon admision # Heme - - daily CBC - SCD's/SQH for DVT prophylaxis # Endo - > DM type II - hold home glimepiride and metformin - SSI resistant scale - send HgbA1c, TSH - goal glucose 120-180 --> ISS # ID - - for temp > 38.4C --> UA, CXR, blood cx, sputum cx - tylenol PRN # ICU Bundle Analgesia None needed Sedation None HOB > 30 degrees SBT Not intubated VAP Bundle Not Intubated Ulcer Prophylaxis Not indicated Bowel Regimen Adequate Feeding NPO DVT Prophylaxis SQH and SCDs Glucose 120-180 Controlled on current insulin regimen De-escalation of Antibiotics Not applicable Indwelling Tubes + Lines Peripheral IV OGT/NGT/DHT Witt: Maintain for Urinary Retention Skin Daily Nursing Skin Breakdown Risk Assessment Rehab Services Consulted PT/OT: Not indicated NICKEL OPERATOR: Not indicated Family Meeting in Last 5 Days No Code Status - Attempt Cardiopulmonary Resuscitation - Inpatient Dispo - ICU Salome Rodriguez APRN 07/18/2021 [facility] pager [phone] documented in this encounter Miscellaneous Notes * Consult Note - Mendez Sparks MD - 07/20/2021 11:54 AM EDT Neurology Consult Note Patient name:Wero Sadler Date of :1950 Admit date: 07/18/2021 Attending: Tabitha Del Castillo CC: AMS, Infarct seen on brain MRI NIH Stroke Scale NIH Stroke Scale Date 07/20/21 NIH Stroke Scale Time 1558 Level of Consciousness 0 LOC Questions 0 LOC Commands 0 Best Gaze 0 Vision 3 Facial Palsy 0 Motor Arm, Left 0 Motor Arm, Right 0 Motor Leg, Left 0 Motor Leg, Right 0 Limb Ataxia 1 Sensory 0 Best Language 0 Dysarthria 0 Extinction and Inattention: 0 NIH Total Score 4 We have been asked to see Wero Sadler by Dr. Del Castillo ID: Wero Sadler is a 71 y.o. with PMH of ETOH abuse (last drink 07/13), HLD, DMII, colorectal cancer, CVA, OLGA, CAD s/p 3 vessel CABG, L eye prosthesis d/t childhood injury, prostate cancer (currently undergoing chemo/radiation therapy), and R ICA stenosis s/p CEA at OSH, complicated by recurrent stenosis and subsequent visual loss in R eye that recently underwent R TCAR (07/14). Discharged home (07/17) on DAPT and Lisinopril for hypertensive postop period. [place] [facility] [place] [facility] for AMS, imbalance, and visual hallucinations. SBP initially in the 170s, now being kept as SBP < 120 per Vascular Surgery recs. Etiology ofAMS unclear so primary team ordered MRI which showed small infarct in right posterior frontal lobe.Stroke service consulted for management recs. Interval Hx: - Pt having AMS, primary team was concerned mets vs. Intracranial pathology so ordered MRI which showed Single small focus of hyperintense signal on diffusion-weighted images in the deep white matter of the right posterior frontal lobe suspicious for small site of recent infarction. - Three small foci of susceptibility-related signal loss at mccrary-white junctions in the right cerebral hemisphere. Differential diagnosis for this asymmetric phenomenon includes small emboli, amyloid angiopathy, and sequela of trauma. - No evidence of mets. - Stroke team consulted for recs for managing stroke - Pt already on DAPT with aspirin and plavix, and on Statin - Pt feels good, denies weakness or sensory deficits. Past Medical History: Patient Active Problem List Diagnosis Code ??? [...] status, unspecified altered mental status type R41.82 Medications: acetaminophen, amLODIPine, aspirin EC, atorvastatin, carvediloL, clopidogreL, fish oil-omega-3 fatty acids, glimepiride, lisinopriL, and metFORMIN Allergies: Allergies Allergen Reactions ??? Cyclobenzaprine Other (See Comments) Extreme moodiness ??? Other [Unclassified Drug] Other (See Comments) Had reaction to a dye used during vascular procedure at [facility] in [place]: shaking Has tolerated MRI and CT contrast. Family history: Family History Problem Relation Age of Onset ??? Diabetes Father Physical Exam: Patient Vitals for the past 8 hrs: BP Temp Temp src Pulse Resp SpO2 07/20/21 1530 141/62 -- -- 72 13 97 % 07/20/21 1507 148/63 -- -- -- -- -- 07/20/21 1400 140/56 -- -- 70 17 95 % 07/20/21 1230 133/56 -- -- 66 12 96 % 07/20/21 1209 153/65 -- -- -- -- -- 07/20/21 1205 153/65 -- -- 62 18 96 % 07/20/21 1125 138/67 36.7 ??C (98.1 ??F) Oral 65 12 96 % 07/20/21 1030 136/62 -- -- 67 -- -- 07/20/21 1007 157/65 -- -- -- -- -- 07/20/21 1000 161/69 -- -- 70 9 96 % GEN- AAOx4, NAD, follows all commands and cooperates with exam; no aphasia, no dysarthria CN- PRRL in R eye (left eye prosthetic), R eye with chronic severe vision loss, impaired nasal VF on exam, EOMI, no facial asymmetry, tongue midline, palate rises symmetrically MOTOR- no drift, BUE 5/5 throughout, BLE 5/5 throughout SENSATION - intact and symmetric to LT in BUE/BLE CEREBELLUM - FTN intact on L side, slight dysmetria on R side. No nystagmus CV/PULM - normal WOB on room air, appears well-perfused Labs: I/O 24 Hours: 07/19 0701 - 07/20 0700 In: 1568 [P.O.:780; I.V.:698] Out: 425 [Urine:425] I/O this shift: In: 900 [P.O.:790; IV Piggyback:110] Out: 925 [Urine:925] Recent Labs 07/20/211407/19/2111407/18/21203207/14/21 0716 WBC 6.7 6.5 7.1 7.4 HGB 10.1* 10.9* 11.8* 13.0* HCT 30.3* 32.4* 35.1* 39.4* PLATELET 226 216 219 234 NEUTROABS 4.41 4.33 4.57 -- Recent Labs 07/20/211407/19/2111407/18/21203207/14/21 0716 NA 137 138 138 138 K 3.9 3.6 3.7 4.3 CL 104 104 102 103 CO2 20* 21* 22 22 BUN 16 9* 9* 13 CREATININE 0.59* 0.56* 0.62* 0.71* GLUCOSE 164 168 160 184 Recent Labs 07/20/211407/19/2111407/18/212032 CALCIUM 8.3* 8.6 9.0 MAGNESIUM 0.96 1.06 0.84 PHOS 3.7 3.2 2.7 Recent Labs 05/17/22 2033 AST 22 ALT 16 ALKPHOS 96 BILITOT 1.4* BILIDIR 0.3 No results for input(s): TROPONINT, CK in the last 168 hours. No results for input(s): PHART, XSY1SNB, PO2ART, IUW5LQW in the last 168 hours. Recent Labs 07/18/212032 INR 1.1 Lipid Panel Lab Results Component Value Date CHLPL 151 07/18/2021 HDL 38 07/18/2021 CHOLHDL 4.0 07/18/2021 TRIG 162 07/18/2021 LDLCHOL 81 07/18/2021 Recent Labs 07/18/212032 HA1C 7.8* Diagnostic Tests and Imaging: Results for orders placed or performed during the hospital encounter of 07/18/21 XR Abdomen 1 view (Generic) (Exam End: 07/18/2021 9:45 PM) Impression Enteric feeding tube tip is subdiaphragmatic, at a level just distal to the expected gastroesophageal junction, overlying the proximal stomach. Further advancement is suggested. I have personally reviewed the image(s) and the resident's interpretation and agree with the findings, Yessi Rivas MD at 07/19/2021 8:38 AM Thank you for letting us participate in the care of this patient. If you are a health care provider and have any questions regarding this report, please contact the number below. For patients who have questions please contact the health director of health care marketing that requested your imaging first. Electronically signed by: Yessi Rivas MD, [facility] ([phone]), at 07/19/2021 8:38 AM Request For 2nd Read CT Head And Spine (Exam End: 07/18/2021 9:57 PM) Impression Recent surgical changes at the right carotid. No severe stenosis or occlusion. Thank you for letting us participate in the care of this patient. If you are a health care provider and have any questions regarding this report, please contact the number below. For patients who have questions please contact the health director of health care marketing that requested your imaging first. Electronically signed by: Andrew Canseco MD, [facility] ([phone]), at 07/19/2021 8:15 AM MRI Angiogram Head & MRI Brain wwo Contrast (Exam End: 07/19/2021 9:46 PM) Impression 1. Single small focus of hyperintense signal on diffusion-weighted images in the deep white matter of the right posterior frontal lobe suspicious for small site of recent infarction. 2. Three small foci of susceptibility-related signal loss at mccrary-white junctions in the right cerebral hemisphere. Differential diagnosis for this asymmetric phenomenon includes small emboli, amyloid angiopathy, and sequela of trauma. 3. No evidence of cerebral metastasis. 4. Moderate to severe focal stenosis of the P2 segment of the left posterior cerebral artery. Sites of more mild stenosis at the proximal M2 segment of the left inferior division and in the P2 segment of the right posterior cerebral artery Thank you for letting us participate in the care of this patient. If you are a health care provider and have any questions regarding this report, please contact the number below. For patients who have questions please contact the health director of health care marketing that requested your imaging first. Electronically signed by: Rian Madrid MD, [facility] ([phone]), at 07/20/2021 8:22 AM Assessment and Plan: 71 y.o. male with PMH of ETOH abuse (last drink 07/13), HLD, DMII, colorectal cancer, CVA, OLGA, CAD s/p 3 vessel CABG, L eye prosthesis d/t childhood injury, prostate cancer (currently undergoing chemo/radiation therapy), and R ICA stenosis s/p CEA at OSH, complicated by recurrent stenosis and subsequent visual loss in R eye that recently underwent R TCAR (07/14). Discharged home (07/17) on DAPT andLisinopril for hypertensive postop period. [place] [facility] [place] [facility] for AMS, imbalance, and visual hallucinations. SBP initially in the 170s, now being kept as SBP < 120 per Vascular Surgery recs. Etiology ofAMS unclear so primary team ordered MRI which showed small infarct in right posterior frontal lobe.Stroke service consulted for management recs. Etiology of stroke most likely due to cb-procedural distal embolization following TCAR performed on 07/14. Stroke is small and unlikely to be the cause of AMS, and at time of interview pt is fully oriented and AMS is improving. No focal neuro deficits besides mild R FNF dysmetria. Vision loss is chronic. Pt already on medical therapy for CVA ppx (DAPT and statin); given he is on DAPT and statin therapy, we do not have any further recommendations for interventions at this time. #Neuro: - Continue current DAPT (aspirin 81mg QD and Plavix 75mg QD) - Continue Atorvastatin 80mg QHS Mendez Sparks MD Please page Vascular Neurology at #[phone] with any questions. Department of Neurology [place] [phone] Associated attestation - Cathryn Fuentes MD - 07/21/2021 1:49 PM EDT Neurology Attending Attestation I evaluated the patient with the Stroke Team during bedside rounds. I have reviewed the medical records and patient's history, as well as the resident???s history and examination findings and I agreewith the details as written. My neurologic examination confirms the resident???s findings. We formulated the assessment and plan after a detailed discussion, as documented. Cathryn Fuentes MD Vascular Neurology * Initial Assessments - Erika Kay RN - 07/20/2021 10:39 AM EDT Office of Care Management Initial Assessment Medical record reviewed. Plan of care and patient status discussed with direct care Registered Nurse and/or Care Team in multidisciplinary rounds. Reason for Hospitalization: 07/20/2021 Patient states that he fell x3 post hospital discharge on 07/17/2021 and was experiencing hallucinations/AMS Last COVID test: Lab Results Component Value Date [id number] Not Detected 07/19/2021 Present on Admission: ??? Altered mental status, unspecified altered mental status type Hospitalizations Within the Past 30 Days: current reason for admission unrelated to previous admission, other (see comments) Patient receiving hospital care under Inpatient status. Admission order reviewed. Primary Insurance on file: MEDICARE Secondary Insurance on file:@ Primary care provider on file: Alo Carey DO [phone] Pharmacy: [id number] AT [facility] [place] & [address] [id number] Advance Care Planning: Attempt Cardiopulmonary Resuscitation - Inpatient <no information> -Advanced Directive: No, need to discuss Current Functional Ability: Independent Functional Status Prior to Admission: Independent Home Environment: Others in the home: sibling(s) (patient lives with his brother in [place], [place]). Current Living Arrangements: home/apartment/condo. Accessibility Concerns:Pt lives with his brother in a two level home with 2 CLARIBEL and a FOS with B railings to the second floor where pt's bedroom is located. Current DME: cane - straight, walker - standard [address] [facility] [address] Social & Family Supports: All names listed below confirmed with patient as current and correct Extended Emergency Contact Information Primary Emergency Contact: AMY DEGROOT Address: [address] [place] [id number] [place] [address] Mobile Relation: Significant Other Secondary Emergency Contact: SERGIO SADLER Mobile Relation: Sibling Current Care Provided by: self, other (see comments) ([facility]; boarding [facility]) Transportation: no concerns Transportation Anticipated: family or friend will provide Assessment: Patient with no apparent RNCM/SW needs at this time. No housing, transportation, insurance, resources concerns identified at this time. Supports in place to achieve a safe post-hospital transition. No identified barriers to accessing necessary care and/or follow-up after discharge. Plan: Patient to d/c to home in [place], [place] via private car when medically ready. Registered Nurse Tapper Balance Wheel Screw Hole / Convenience Store Manager will continue to follow patient???s progress and remain available if situation changes for coordination of care, psychosocial support and/or discharge planning. Office of Care Management Erika Kay RN [facility] naturopathic oncology provider Pager: [phone] * Plan of Care - Lashonda Chin RN - 07/19/2021 7:25 PM EDT OUTCOME EVALUATION NOTE: OUTCOME SUMMARY: Pt A&Ox4, equal strength in all extremities. Ativan assessment done Q2. On RA and intermittently 4L NC throughout shift. Desat events to 60s/70s when sleeping. Pt's significant other brought homeCPAP machine for pt to use this evening. NSR/SB. Afebrile. Nicard off this afternoon. Hydralazine given x1 to meet BP goal. NGT removed, advanced to regular diet and tolerating well. Witt removed. Worked with PT/OT and spent most of shift up in chair. Currently resting comfortably. PLAN MOVING FORWARD: Q4 neuro checks INDIVIDUALIZED FALL PREVENTION INTERVENTIONS: Patient-specific fall risk factors per assessment: [current deficits]: Generalized weakness Assistance [level of assistance required for transfers and ambulation]: x2 assist w/ walker Supervision [direct monitoring required during toileting and ADLs]: Hands on Surveillance [continuous indirect monitoring]: ICU monitoring Patient-specific fall prevention interventions for sensory deficits provided, if applicable: CPG GOAL OUTCOME EVALUATION: * Initial Assessments - Denys Kimball OT - 07/19/2021 10:01 AM EDT Occupational Therapy Evaluation Patient Profile: Wero Sadler is a 71 y.o. male admitted on 07/18/2021 with PMH of ETOH abuse (lastdrink 07/13), HLD, DMII, colorectal cancer, CVA, OLGA, CAD s/p 3 vessel CABG, L eye prosthesis d/t childhood injury, prostate cancer (currently undergoing chemo/radiation therapy), and R ICA stenosis s/p CEA at OSH, complicated by recurrent stenosis and subsequent visual loss in R eye that recently underwent R TCAR (07/14). Discharged home (07/17) on DAPT and Lisinopril for hypertensive postop period. ?? Pt transferred from [facility] after waking up on 07/18 altered apparently fallen out ofbed yesterday morning and found by his brother. Pt states he fell 3x that morning d/t imbalance. Presented to ED for eval of AMS and visual/auditory hallucinations. He has a LUE pronator drift (NIHSS1) and SCOTT. There is c/f reperfusion injury VS acute ETOH withdrawal. Active Non-Hospital Problems Diagnosis ??? Stenosis of carotid artery, unspecified laterality [...] Diabetes mellitus ??? Hypercholesterolemia ??? Hypertensive disorder Social History: from Pt with PT Home setup: Pt lives with his brother in a two level home with 2 CLARIBEL and a FOS with B railings to the second floor where pt's bedroom is located. Pt has a significant other that visits often and sometimes spends the night. The downstairs bathroom has a walk-in shower (which he uses). Upstairs bathroom has clawfoot tub. Baseline Mobility/Prior level of function: Ambulates independently without a device, independent with most ADLs but is not able to put on socks. Does not drive.(Brother does drive) Pt enjoys woodworking. Pt has h/o several recent falls, all on day of admission. DME: cane, rolling walker ?? Precautions/Special Considerations: fall risk; activity as jacquie; NPO; SBP<120; DHT, prosthetic eye on L Subjective: I was trying to get dressed when the falls occurred at home. Objective: Seen today for OT evaluation with PT. Vital Signs: o HR: 50s bpm o SpO2: 94 on RA o BP: 111/59 mmHg repeated in bed, 101/62 seated, and 93/60 after walking to chair. (Pt was noted to be slower to process what was asked of him while transferring to chair and spacing out with task). RN present in room and aware. Pain: L knee pain with standing and transferring to chair Skin: abrasions on knees from fall at home Cognitive Status/Behavior: o Behavior / Mood: alert and cooperative o Alert and oriented to: person, place and situation, month/year, but off on date by 2 days but with prompts could figure out it was the 18th. Updated white board in room as it was off. o Follows commands: 1 step, 100% of the time and requires repetition (but worsen with transferring to the chair) o Attention: distractible and requires cues to redirect o Safety awareness: decreased insight into deficits Vision & Perception: o visual/perceptual impairments o Hx of L prosthetic eye (blind L eye) o Able to locate clock, but unable to read clock today. o Pt states he doesn't have glasses, only wears safety glasses while working. o Pt tracking/scanning with R eye. Communication/Hearing: o Hearing WFL bilaterally o Delayed responses noted while standing vs. Sitting Musculoskeletal: o Hand dominance: right o ROM: B UEs moving WFL o Strength: B UEs and B LEs moving anti-gravity Activities of Daily Living: o Self-feeding: NPO, but has range necessary to feed self. o Grooming: Pt tired after completing transfer to chair, and with delayed responses. Pt not interested in doing tasks now. o Dressing: Dependent to don socks. Doesn't usually wears socks at home 2' unable to don them. ? Ifmight benefit from sock aide. o Bathing: Discussed bathroom set up and routines, deferred bathing 2' fatigue and delayed responsiveness once to chair. o Toileting: witt catheter Functional Mobility: o Supine <> Sit: Supervision to the L o Sit <> Stand: min A of 2 to the walker with cues (didn't raise height, anticipate could do better from higher surfaces. L knee bothering him). o Transfers: min A of 2 to walk a few feet from bed to recliner using walker with cues to maintain attention to task. o Ambulation: min A of 2 to walk 3 ft from bed to recliner using walker with multi-modal cues. NOtePt appeared confused, and his responses delayed in stance, and Pt appeared to be spacing out at times. BP when taken in chair was noted to be lower. Pt also noting L knee to be uncomfortable. Balance: o Sitting Static: good o Sitting Dynamic: fair o Standing Static:CG A with walker o Standing Dynamic / Gait: Poor Education: Patient has been educated on Role of occupational therapy and rehabilitation, orientation, Transfers, ADL's, Safety, Functional Mobility, and Discharge planning. Patient verbalized understanding. Patient status, treatment, and activity/mobility recommendations discussed with nursing. Assessment: Pt has been seen for occupational therapy evaluation. Wero Sadler presents with the following performance skill deficits and client factors: increased pain, decreased activity tolerance, decreased strength, decreased sitting/standing balance, hemodynamic instability, visual deficits, cognitive deficits, compromised mobility status and and with history of increased falls.. These performance deficits have led to activity limitations and participation restrictions in the following areas of occupation: dressing, bathing, grooming, toileting, transfers/mobility, home management, leisure, driving and community mobility. Pt alert/awake, and motivated to work with therapy. Pt noting in creased L knee pain with standing/ambulating. Pt appeared more confused, and slower to respond/process steps during transfer. Noteable change in BP, which could have contributed to this. RN aware. Ptlives with his brother, and was previously independent but with an increase in recent falls. Pt would benefit from further inpatient OT interventions to address performance deficits and maximize participation and independence with occupations of daily living. Equipment Recommendations: Equipment Needs Upon Discharge (OT): (shower seat, has cane and walkers) Anticipated Discharge Disposition (OT): (inpatient rehab) Activity Recommendations: ?? Promote normalcy by encouraging participation in common daily tasks & leisure activities by providing set up assist ?? Facilitate a normal sleep-wake cycle ?? Provide brief, clear instruction from one source at a time ?? Provide calming music, favorite TV programs, magazines or newspapers ?? Commode for toileting needs vs. Using urinal & bed boo ?? Encourage Pt to sit up for meals when cleared to eat. ?? Transfer OOB to chair/commode with 2 assist and walker, and be mindful of BP (noteable drop today in stance and change in mentation). Goals: To be achieved by 08/02 ?? Patient will ambulate functional household distances to bathroom with supervision and walker. ?? Patient will don/doff footwear sitting eob/chair using AE as needed independently. ?? Patient will don/doff pants/shorts seated/standing with supervision following set up. ?? Patient will complete grooming tasks seated/standing at sink with supervision following set up. ?? Patient will be supervised with toileting routines in the bathroom. ?? Pt will complete bathing routine with supervision at sink level /p set-up, using appropriate DME/AE as needed. ?? Pt will verbalize knowledge of 2 fall prevention strategies to minimize risk of future falls. ?? Pt will tolerate 10 minutes of daily upper extremity exercise in order to increase general activity tolerance and performance in ADLs/IADLs. OT: Therapy Frequency (OT): 2-4 times/wk Planned OT interventions: Role of occupational therapy/rehabilitation, Transfers, Assistive device/technique, Adaptive equipment training, ADL, Exercise, Breathing exercises, Positioning, Safety, Precautions/Protocol, cognition, visual skills, therapeutic activity, falls prevention, Functional Mobility, Activity pacing/Energy conservation, Home Program, Home Management, Balance, Recommendations, Family training, and Discharge planning. Total Minutes, Occupational Therapy: 24 ([id number] (eval)) 2017 OT Evaluation Code Rationale: Diagnosis & Pertinent Co-Morbidities affecting Plan of Care: see PMHx Occupational Profile & Client History: Brief Expanded Extensive x Assessment of Occupational Performance: 1-3 performance deficits 3-5 performance deficits 5 + performance deficits x Clinical Decision Making: Low Moderate High x Clinical decision making of moderate complexity using standardized patient assessment instrument and measurable assessment of functional outcome. Denys Kimball, OTR Pager [phone] Occupational Therapy Rehabilitation Department * Consult Note - Milagros Forbes MD - 07/19/2021 12:01 AM EDT [facility] Department of Vascular Surgery Consult Note CC: ? Reperfusion injury s/p TCAR History of Present Illness: Wero Sadler is a 71 y.o. 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 Reperfusion injury s/p TCAR in the setting of new altered mental status. His post operative course was notable for hypertension. He was discharged home on 07/17 on DAPT and a new prescription of lisinopril. His right eyevision loss had improved by the time of discharge. This morning, patient was found by his brother after having fallen out of his bed. He was noted to have altered mental status and visual hallucinations, prompting an ED visit at [facility]. Exam there was notable for headache and LUE pronator drift. SBP was in 160-170s per OSH report. CT/CTA showed patent R carotid stent graft and intracranial vessels. [place] [facility] [place] concerns for reperfusion injury s/p TCAR vs alcohol withdrawal. Past Medical History: Past Medical History: Diagnosis Date ??? 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 can not read. can see shadows. No vision in left eye since child saavedra accident. ??? Cancer prostate, colorectal ??? Claudication ??? Colon adenocarcinoma 2009 recieved chemo in [place] ??? Coronary artery disease ??? Coronary artery dissection ??? CPAP (continuous positive airway pressure) dependence CPAP ??? Diabetes treated with medication ??? Gastroesophageal reflux ??? High blood pressure ??? Hyperlipidemia ??? Obstructive sleep apnea ??? Status post chemotherapy 2009 colon cancer ??? Stroke 11-24-19 Past Surgical History Past Surgical History: Procedure Laterality Date ??? [...] 9.19) performed by Basim Barr MD at [facility] MAIN OR ??? PRO LASER VAPORIZATION SURGERY PROSTATE, COMPLETE Midline 02/02/2021 CYSTO, LASER TURP (WRVU 12.15) performed by Cayetano Engle MD at [facility] MAIN OR ??? PRO PLACE TRANSCATHETER STENT, CCA W EMBOLIC PROECT Right 07/14/2021 @TRANSCATH INTRAVASCULAR STENT,CAROTID,PERC,W\EMBOLIC PROT. (WRVU 18) performed by Basim Barr MD at [facility] MAIN OR ??? PRO TOTAL HIP ARTHROPLASTY Left 10/10/2020 TOTAL HIP ARTHROPLASTY - POSTERIOR (WRVU 20.72) performed by Ismael Wu MD at [facility] MAIN OR Medications No current facility-administered medications on file prior to encounter. Current Outpatient Medications on File Prior to Encounter Medication Sig Dispense Refill ??? atorvastatin (Lipitor) 80 mg Tablet Take 1 tablet by mouth every evening. 90 tablet 3 ??? acetaminophen (Tylenol) 500 mg Tablet Take 2 tablets by mouth every 6 hours. 30 tablet 1 ??? lisinopriL (Zestril) 20 mg Tablet Take 1 tablet by mouth daily. 90 tablet 3 ??? carvediloL (Coreg) 25 mg Tablet Take 25 mg by mouth 2 times daily (with meals). ??? glimepiride (Amaryl) 1 mg Tablet daily. Will take BID on days of dexamethasone ??? clopidogreL (Plavix) 75 mg Tablet daily. ??? metFORMIN (FORTAMET) 500 mg Tablet Extended Rel 24 hr Take 1,000 mg by mouth 2 times daily (with meals). ??? amLODIPine (Norvasc) 10 mg Tablet Take 10 mg by mouth daily. ??? aspirin EC 81 mg Tablet, Delayed Release (E.C.) Take 81 mg by mouth daily. ??? fish oil-omega-3 fatty acids 1,000 mg Capsule Take 2 g by mouth daily. Allergies Allergies Allergen Reactions ??? Cyclobenzaprine Other (See Comments) Extreme moodiness ??? Other [Unclassified Drug] Other (See Comments) Had reaction to a dye used during vascular procedure at [facility] in [place]: shaking Has tolerated MRI and CT contrast. Family History: Family History Problem Relation Age of Onset ??? Diabetes Father Social History: Social History Socioeconomic History ??? Marital status: Spouse name: Not on file ??? Number of children: Not on file ??? Years of education: Not on file ??? Highest education level: Not on file Occupational History ??? 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 Smoking status: Former Smoker Packs/day: 4.00 Years: 30.00 Pack years: 120.00 Types: Cigarettes Quit date: 1992 Years since quittin.3 ??? Smokeless tobacco: Never Used Vaping Use ??? Vaping Use: Never used Substance and Sexual Activity ??? Alcohol use: Yes Alcohol/week: 7.0 standard drinks Types: 7 Cans of beer per week ??? Drug use: Not Currently ??? Sexual activity: Not on file Other Topics Concern ??? Not on file Social History Narrative ??? Not on file Social Determinants of Health Financial Resource Strain: Not on file Food Insecurity: Not on file Transportation Needs: Not on file Physical Activity: Not on file Housing Stability: Not on file Review of Systems: As stated above, otherwise negative Physical Exam: Temp: [36.8 ??C (98.2 ??F)] Heart Rate: [73-82] Resp: [14-20] BP: (121-168)/(58-79) SpO2: [96 %-100 %] Heart Rate from SpO2: [72 bpm-85 bpm] General: no acute distress, does not open his eyes to command, opens intermittently to noxious stimuli HEENT: Atraumatic, non cyanotic. Left eye prosthesis, right eye 3 mm pupil round and equal Cardiac: Regular rate and rhythm Pulmonary: clear to auscultation bilaterally, no increased work of breathing on 2L O2 by NC Abdominal: DHT in place. Soft, non tender, non distended Neuro: grossly intact, intermittently follows commands, AAO x1 (oriented to self only) Extremities: Warm and well-perfused Labs: Recent Labs 07/18/21203207/14/2116 05/04/21 1134 WBC 7.1 7.4 6.7 HGB 11.8* 13.0* 13.5* HCT 35.1* 39.4* 41.2 PLATELET 219 234 211 Recent Labs 07/18/21203207/14/21 0716 05/04/21 1134 NA 138 138 140 K 3.7 4.3 4.6 CL 102 103 104 CO2 22 25 BUN 9* 13 19 CREATININE 0.62* 0.71* 0.84 Recent Labs 07/18/212032 AST 22 ALT 16 ALKPHOS 96 BILITOT 1.4* BILIDIR 0.3 Recent Labs 07/18/212032 CALCIUM 9.0 PHOS 2.7 Recent Labs 07/18/212032 PT 12.3 INR 1.1 PTT 30 Imaging: CTH/ CTA second read, 07/18/2021 Second read pending, but R ICA stent appears patent Impression: Wero Sadler is a 71 y.o. male with multiple co morbidities including recurrent right ICA stenosis s/p TCAR on 07/14 presenting with altered mental status and visual hallucinations. He iscurrently admitted [facility] for reperfusion injury vs acute EtOH withdrawal. On review of CTA imaging, the trans carotid stent is patent. While it is difficult to tell if his symptoms of visual hallucinations and AMS are related to hyperperfusion injury, he was noted to have had headaches at home per report. Agree with treating with antihypertensive measures. Recommendation: - Recommend SBP <120. Will liberalize BP goal as symptoms improve - Recommend transcranial doppler in AM - Cont daily ASA/ Plavix Discussed with Dr. Canela, vascular surgery fellow slot operations manager, and communicated to the primary team. Milagros Forbes MD Vascular Surgery Consult Pager [phone] documented in this encounter Plan of Treatment Upcoming Encounters Date Type Department Care Team (Late st Contact Info) Description 10/11/2023 10:00 AM EDT Tech [place] [phone] Giacomo Queen 10/11/2023 11:15 AM EDT Office [place] [phone] Basim Barr MD [facility] [place] [place] [address] 10/18/2023 9:00 AM EDT Office Visit Hematology/Oncology at [address] [phone] Cl Hess MD [facility] [place] [address] Yessi Renee APRN [address] [place] [address] DR HEMATOLOGY AND ONCOLOGY [place], [place] [phone] 10/18/2023 9:30 AM EDT Infusion Hematology Oncology at [address] [phone] 10/24/2023 9:30 AM EDT Scheduled View Only Radiation Oncology at [address] [phone] St La Nena Champagne 10/24/2023 10:00 AM EDT Office Visit Radiation Oncology at [address] [phone] Bigg Peters MD [address] [place] [address] DR RADIATION ONCOLOGY [place], [place] [phone] 11/01/2023 9:00 AM EDT Office Visit Hematology/Oncology at [address] [phone] Cl Hess MD [facility] [place] [address] Yessi Renee APRN [address] [place] [address] DR HEMATOLOGY AND ONCOLOGY [place], [place] [phone] 11/01/2023 9:30 AM EDT Infusion Hematology Oncology at [address] [phone] 12/24/2023 1:00 PM EDT TH Visit (TeleHealth) Radiation Oncology at [address] [phone] Ping Moore PA [facility] [place] [address] Scheduled Referrals Name Type Priority Associated Diagnoses Orde r Schedule Referral to Home Health Outpatient Referral Routine Altered mental status, unspecified altered mental status type Stenosis of carotid artery, unspecified laterality History of cerebrovascular accident Ordered: 07/22/2021 documented as of this encounter Procedures Procedure Name Priority Date/Time Associated Diagnosis Comments POCT GLUCOSE Routine 07/21/2021 11:58 AM EDT POCT GLUCOSE Routine 07/21/2021 8:07 AM EDT POCT GLUCOSE Routine 07/21/2021 4:03 AM EDT HEMOGRAM Routine 07/21/2021 12:30 AM EDT DIFFERENTIAL, AUTOMATED Routine 07/21/2021 12:30 AM EDT HC CBC,PLT & AUTO DIFF Routine 12:30 AM EDT HC PHOSPHORUS, SERUM Routine 07/21/2021 12:30 AM EDT HC MAGNESIUM, SERUM Routine 07/21/2021 1 2:30 AM EDT BASIC METABOLIC PANEL Routine 07/21/2021 12:30 AM EDT POCT GLUCOSE Routine 07/21/2021 12:13 AM EDT POCT GLUCOSE Routine 07/20/2021 7:52 PM EDT POCT GLUCOSE Routine 07/20/2021 4:15 PM EDT POCT GLUCOSE Routine 07/20/2021 11:27 AM EDT POCT GLUCOSE Routine 07/20/2021 7:41 AM EDT POCT GLUCOSE Routine 07/20/2021 2:53 AM EDT POCT GLUCOSE Routine 07/20/2021 12:20 AM EDT HEMOGRAM Routine 07/20/2021 12:15 AM EDT DIFFERENTIAL, AUTOMATED Routine 07/20/2021 12:15 AM EDT HC CBC,PLT & AUTO DIFF Routine 12:15 AM EDT HC PHOSPHORUS, SERUM Routine 07/20/2021 12:15 AM EDT HC MAGNESIUM, SERUM Routine 07/20/2021 1 2:15 AM EDT BASIC METABOLIC PANEL Routine 07/20/2021 12:15 AM EDT MRI ANGIOGRAM HEAD & MRI BRAIN WWO CONTRAST Routine 07/19/2021 9:46 PM EDT POCT GLUCOSE Routine 07/19/2021 7:46 PM EDT BLOOD GAS VENOUS POC Routine 07/19/2021 4:16 PM EDT POCT GLUCOSE Routine 07/19/2021 4:03 PM EDT HC PCH THIAMIN LVL(VITAMIN B1) -[place] Routine 07/19/2021 3:25 PM EDT POCT GLUCOSE Routine 07/19/2021 11:53 AM EDT RAPID DRUG SCREEN, URINE Routine 07/19/2021 10:45 AM EDT RAPID DRUG SCREEN W/O CONFIRMATION, URINE Routine 07/19/2021 10:45 AM EDT POCT GLUCOSE Routine 07/19/2021 8:00 AM EDT TRANSCRANIAL DUPLEX COMPLETE Routine 07/19/2021 6:05 AM EDT Altered mental status, unspecified altered mental status type POCT GLUCOSE Routine 07/19/2021 4:02 AM EDT HEMOGRAM Routine 07/19/2021 1:15 AM EDT DIFFERENTIAL, AUTOMATED Routine 07/19/2021 1:15 AM EDT HC CBC,PLT & AUTO DIFF Routine 1:15 AM EDT HC PHOSPHORUS, SERUM Routine 07/19/2021 1:15 AM EDT HC MAGNESIUM, SERUM Routine 07/19/2021 1 :15 AM EDT BASIC METABOLIC PANEL Routine 07/19/2021 1:15 AM EDT RAPID COVID-19 PCR ([facility]) Routine 07/19/2021 1:10 AM EDT POCT GLUCOSE Routine 07/18/2021 11:57 PM EDT HC UA W/OUT MICROSCOPIC STAT 07/18/2021 10:10 PM EDT REQUEST FOR 2ND READ CT HEAD AND SPINE Routine 07/18/2021 9:57 PM EDT XR ABDOMEN 1 VIEW Routine 07/18/2021 9:4 5 PM EDT POCT GLUCOSE Routine 07/18/2021 8:40 PM EDT TYPE AND SCREEN VALIDITY STAT 07/18/2021 8:33 PM EDT ABORH RECHECK STATUS STAT 07/18/2021 8:33 PM EDT HEMOGRAM STAT 07/18/2021 8:33 PM EDT DIFFERENTIAL, AUTOMATED STAT 07/18/2021 8:33 PM EDT HC L-LACTATE STAT 07/18/2021 8:33 PM EDT ABO/RH TYPING STAT 07/18/2021 8:33 PM EDT HC PARTIAL THROMBOPLASTIN TIME Routine 07/18/2021 8:33 PM EDT HC PROTHROMBIN TIME Routine 07/18/2021 8 :33 PM EDT HC CBC,PLT & AUTO DIFF STAT 8:33 PM EDT ANTIBODY SCREEN STAT 07/18/2021 8:33 PM EDT HC ANTIBODY DETECTION,CAPTURE-R STAT 07/18/2021 8:33 PM EDT HC THYROID STIMULATING HORMONE, SERUM Routine 07/18/2021 8:33 PM EDT T4 TOTAL STAT 07/18/2021 8:33 PM EDT HC PHOSPHORUS, SERUM STAT 07/18/2021 8:33 PM EDT HC MAGNESIUM, SERUM STAT 07/18/2021 8 :33 PM EDT HC HEMOGLOBIN A1C Routine 07/18/2021 8:3 3 PM EDT HC AMMONIA, PLASMA Routine 07/18/2021 8: 33 PM EDT HEPATIC FUNCTION PANEL Routine 8:33 PM EDT LIPID PANEL (REFLEX DIRECT LDL) Routine 07/18/2021 8:33 PM EDT BASIC METABOLIC PANEL STAT 07/18/2021 8:33 PM EDT EKG 12-LEAD STAT 07/18/2021 8:14 PM EDT ASCVD (arteriosclerotic cardiovascular disease) documented in this encounter Results * POCT Glucose (07/21/2021 11:58 AM EDT) [facility] Glucose, POC 179 65 - 199 mg/dL [facility] Comment: Supplemental ranges: <140 mg/dL before meals <180 mg/dL all other times of the day Blood 07/21/2021 11:5 8 AM EDT 07/21/2021 11:58 AM EDT Tabitha Del Castillo MD POINT OF CARE DANIEL T ORDERABLES Performing Organization Address [facility] Co de Phone Number [facility] [place] [address] * POCT Glucose (07/21/2021 8:07 AM EDT) Glucose, POC 149 65 - 199 mg/dL [facility] Comment: Supplemental ranges: <140 mg/dL before meals <180 mg/dL all other times of the day Blood 07/21/2021 8:07 AM EDT 07/21/2021 8:07 AM EDT Tabitha Del Castillo MD POINT OF CARE DANIEL T ORDERABLES Performing Organization Address [facility] Co de Phone Number [facility] [place] [address] * POCT Glucose (07/21/2021 4:03 AM EDT) Glucose, POC 163 65 - 199 mg/dL [facility] Comment: Supplemental ranges: <140 mg/dL before meals <180 mg/dL all other times of the day Blood 07/21/2021 4:03 AM EDT 07/21/2021 4:03 AM EDT Tabitha Del Castillo MD POINT OF CARE DANIEL T ORDERABLES Performing Organization Address City/[facility] Co de Phone Number [facility] [place] [address] * Differential, Automated (07/21/2021 12:30 AM EDT) Neutrophil % 67.0 % [facility] Neutrophil Absolute 4.65 1.70 - 6.10 x10(3)/[facility] Lymph % 21.6 % [facility] Lymphocytes Abs 1.5 0.9 - 3.2 x10(3)/[facility] Monocyte % 8.9 % [facility] Monocyte Abs 0.6 0.3 - 0.9 x10(3)/[facility] Eos % 1.9 % [facility] Eosinophils Abs 0.1 0.0 - 0.4 x10(3)/[facility] Basophil % 0.3 % [facility] Baso Absolute 0.0 0.0 - 0.1 x10(3)/[facility] Immature Gran % 0.30 % [facility] Comment: Immature granulocytes(IG's)percentage and absolute count will include metamyelocytes, myelocytes, and promyelocytes. Blood smears from CBCs yielding IG's will be scanned manually for concordance. If this scan disagrees with the automated IG or if promyelocytes are noted, a manual differential will be performed. Immature Gran Absolute 0.02 0.00 - 0.04 x10(3)/[facility] Blood 07/21/2021 12:3 0 AM EDT 07/21/2021 12:42 AM EDT Narrative Resulting Agency Comment Spec In Lab Abbi CORMIER HEMATOLOGY ORDERABL ES [facility] [place] [address] * (ABNORMAL) Hemogram (07/21/2021 12:30 AM EDT) White Blood Cell 6.9 4.0 - 9.5 x10(3)/ L [facility] Red Blood Cell 3.24(L) 4.58 - 5.54 x10(6)/[facility] Hemoglobin 10.3(L) 13.7 - 16.5 g/dL [facility] Hematocrit 30.8(L) 40.5 - 48.5 % [facility] Mean Cell Volume 95.1(H) 82.9 - 93.1 fL [facility] Mean Cell Hemoglobin 31.8 27.5 - 32.1 pg [facility] Mean Cell Hemoglobin Concentration 33.4 32.0 - 35.7 g/dL [facility] Platelet 229 145 - 357 x10(3)/mc L [facility] RDW Standard Deviation 47.2(H) 36.0 - 45.0 fL [facility] RDW coefficient of variation 13.6 11.4 - 13.8 % [facility] Mean Platelet Volume 10.1 7.6 - 12.9 fL [facility] NRBC% auto 0.0 % [facility] NRBC Absolute 0.000 0.000 - 0.000 x10(3)/mc L [facility] Blood 07/21/2021 12:3 0 AM EDT 07/21/2021 12:42 AM EDT Narrative Resulting Agency Comment Spec In Lab Abbi CORMIER HEMATOLOGY ORDERABL ES [facility] [place] [address] * Phosphorus (07/21/2021 12:30 AM EDT) Phosphorus 3.8 2.5 - 4.5 mg/dL [facility] Blood 07/21/2021 12:3 0 AM EDT 07/21/2021 12:42 AM EDT Narrative Resulting Agency Comment Spec In Lab Patricia Briggs MD CHEMISTRY ORDERABLES [facility] [place] [address] * Magnesium (07/21/2021 12:30 AM EDT) Magnesium 0.96 0.69 - 1.07 mmol/L [facility] Blood 07/21/2021 12:3 0 AM EDT 07/21/2021 12:42 AM EDT Narrative Resulting Agency Comment Spec In Lab Patricia Briggs MD CHEMISTRY ORDERABLES [facility] [place] [address] * (ABNORMAL) Basic Metabolic Panel (non-fasting) (07/21/2021 12:30 AM EDT) Glucose 166 65 - 199 mg/dL [facility] Comment:Diabetes: >=200 mg/d L plus symptoms Blood Urea Nitrogen 20 10 - 20 mg/dL [facility] Creatinine 0.65(L) 0.80 - 1.50 mg/dL [facility] Sodium 136 135 - 145 mmol/L [facility] Potassium 3.7 3.5 - 5.0 mmol/L [facility] Comment: Please note: ??Patients with WBC >100,000 may have falsely elevated Potassium levels. ??For accurate Potassium quantification in these patients send serum separator tube (gold top) for subsequent determinations. ??Contact the Clinical Chemistry Laboratory if there are any questions. Chloride 103 98 - 107 mmol/L [facility] Carbon Dioxide 21(L) 22 - 31 mmol/L [facility] Anion Gap 12 5 - 15 mmol/L [facility] Calcium 8.7 8.5 - 10.5 mg/dL [facility] Est Glomerular Filtration Rate 97 >=60 mL/min/1. 73 m?? [facility] Comment: This patient? s estimated glomerular filtration rate (eGFR) is between 97 mL/min/1.73 m2 (patients with less muscle mass per kg body weight) and 112 mL/min/1.73 m2 (patients with more muscle mass per kg body weight) as determined by the CKD-EPI equation. Assessment of eGFR is not appropriate when creatinine concentrations are rapidly changing. For clinical decisions where creatinine clearance will affect therapy, a 24-hour urine creatinine clearance may be advised. Assignment of CKD stage 1 - 5 for patients with an eGFR near the transition point between stages may be based on clinical assessment of muscle mass and symptoms in addition to eGFR. Blood 07/21/2021 12:3 0 AM EDT 07/21/2021 12:42 AM EDT Narrative Resulting Agency Comment Spec In Lab Patricia Briggs MD CHEMISTRY ORDERABLES [facility] [place] [address] * POCT Glucose (07/21/2021 12:13 AM EDT) Glucose, POC 161 65 - 199 mg/dL [facility] Comment: Supplemental ranges: <140 mg/dL before meals <180 mg/dL all other times of the day Blood 07/21/2021 12:1 3 AM EDT 07/21/2021 12:13 AM EDT Tabitha Del Castillo MD POINT OF CARE DANIEL T ORDERABLES Performing Organization Address City/[facility]/ZIP Co de Phone Number [facility] [place] [address] * POCT Glucose (07/20/2021 7:52 PM EDT) Glucose, POC 179 65 - 199 mg/dL [facility] Comment: Supplemental ranges: <140 mg/dL before meals <180 mg/dL all other times of the day Blood 07/20/2021 7:52 PM EDT 07/20/2021 7:52 PM EDT Tabitha Del Castillo MD POINT OF CARE DANIEL T ORDERABLES [facility] [place] [address] * POCT Glucose (07/20/2021 4:15 PM EDT) Glucose, POC 176 65 - 199 mg/dL [facility] Comment: Supplemental ranges: <140 mg/dL before meals <180 mg/dL all other times of the day Blood 07/20/2021 4:15 PM EDT 07/20/2021 4:15 PM EDT Tabitha Del Castillo MD POINT OF CARE DANIEL T ORDERABLES [facility] [place] [address] * POCT Glucose (07/20/2021 11:27 AM EDT) Glucose, POC 186 65 - 199 mg/dL [facility] Comment: Supplemental ranges: <140 mg/dL before meals <180 mg/dL all other times of the day Blood 07/20/2021 11:2 7 AM EDT 07/20/2021 11:27 AM EDT Tabitha Del Castillo MD POINT OF CARE DANIEL T ORDERABLES Performing Organization Address City/[facility]/ZIP Co de Phone Number [facility] [place] [address] * POCT Glucose (07/20/2021 7:41 AM EDT) Glucose, POC 155 65 - 199 mg/dL [facility] Comment: Supplemental ranges: <140 mg/dL before meals <180 mg/dL all other times of the day Blood 07/20/2021 7:41 AM EDT 07/20/2021 7:41 AM EDT Tabitha Del Castillo MD POINT OF CARE DANIEL T ORDERABLES Performing Organization Address City/[facility]/ZIP Co de Phone Number [facility] [place] [address] * POCT Glucose (07/20/2021 2:53 AM EDT) Glucose, POC 153 65 - 199 mg/dL [facility] Comment: Supplemental ranges: <140 mg/dL before meals <180 mg/dL all other times of the day Blood 07/20/2021 2:53 AM EDT 07/20/2021 2:53 AM EDT Tabitha Del Castillo MD POINT OF CARE DANIEL T ORDERABLES Performing Organization Address City/[facility]/ZIP Co de Phone Number [facility] [place] [address] * POCT Glucose (07/20/2021 12:20 AM EDT) Glucose, POC 163 65 - 199 mg/dL [facility] Comment: Supplemental ranges: <140 mg/dL before meals <180 mg/dL all other times of the day Blood 07/20/2021 12:2 0 AM EDT 07/20/2021 12:20 AM EDT Tabitha Del Castillo MD POINT OF CARE DANIEL T ORDERABLES Performing Organization Address City/[facility] Co de Phone Number [facility] [place] [address] * Differential, Automated (07/20/2021 12:15 AM EDT) Neutrophil % 65.5 % [facility] Neutrophil Absolute 4.41 1.70 - 6.10 x10(3)/[facility] Lymph % 21.1 % [facility] Lymphocytes Abs 1.4 0.9 - 3.2 x10(3)/[facility] Monocyte % 10.8 % [facility] Monocyte Abs 0.7 0.3 - 0.9 x10(3)/[facility] Eos % 2.1 % [facility] Eosinophils Abs 0.1 0.0 - 0.4 x10(3)/[facility] Basophil % 0.4 % [facility] Baso Absolute 0.0 0.0 - 0.1 x10(3)/[facility] Immature Gran % 0.10 % [facility] Comment: Immature granulocytes(IG's)percentage and absolute count will include metamyelocytes, myelocytes, and promyelocytes. Blood smears from CBCs yielding IG's will be scanned manually for concordance. If this scan disagrees with the automated IG or if promyelocytes are noted, a manual differential will be performed. Immature Gran Absolute 0.01 0.00 - 0.04 x10(3)/mcL [facility] Blood 07/20/2021 12:1 5 AM EDT 07/20/2021 12:34 AM EDT Narrative Resulting Agency Comment Spec In Lab Abbi [facility]AT[facility] ORDERABL ES [facility] [place] [address] * (ABNORMAL) Hemogram (07/20/2021 12:15 AM EDT) White Blood Cell 6.7 4.0 - 9.5 x10(3)/mc L [facility] Red Blood Cell 3.25(L) 4.58 - 5.54 x10(6)/mc L [facility] Hemoglobin 10.1(L) 13.7 - 16.5 g/dL [facility] Hematocrit 30.3(L) 40.5 - 48.5 % [facility] Mean Cell Volume 93.2(H) 82.9 - 93.1 fL [facility] Mean Cell Hemoglobin 31.1 27.5 - 32.1 pg [facility] Mean Cell Hemoglobin Concentration 33.3 32.0 - 35.7 g/dL [facility] Platelet 226 145 - 357 x10(3)/mc L [facility] RDW Standard Deviation 45.3(H) 36.0 - 45.0 fL [facility] RDW coefficient of variation 13.2 11.4 - 13.8 % [facility] Mean Platelet Volume 10.3 7.6 - 12.9 fL [facility] NRBC% auto 0.0 % [facility] NRBC Absolute 0.000 0.000 - 0.000 x10(3)/mc L [facility] Blood 07/20/2021 12:1 5 AM EDT 07/20/2021 12:34 AM EDT Narrative Resulting Agency Comment Spec In Lab Abbi [facility]EMATOLOG[facility] ORDERABL ES Performing Organization Address [facility]/ZIP Co de Phone Number [facility] [place] [address] * Magnesium (07/20/2021 12:15 AM EDT) Magnesium 0.96 0.69 - 1.07 mmol/L [facility] Blood 07/20/2021 12:1 5 AM EDT 07/20/2021 12:34 AM EDT Narrative Resulting Agency Comment Spec In Lab Patricia Briggs MD CHEMISTRY ORDERABLES Performing Organization Address [facility] Co de Phone Number [facility] [place] [address] * Phosphorus (07/20/2021 12:15 AM EDT) Phosphorus 3.7 2.5 - 4.5 mg/dL [facility] Blood 07/20/2021 12:1 5 AM EDT 07/20/2021 12:34 AM EDT Narrative Resulting Agency Comment Spec In Lab Patricia Briggs MD CHEMISTRY ORDERABLES Performing Organization Address [facility] Co de Phone Number [facility] [place] [address] * (ABNORMAL) Basic Metabolic Panel (non-fasting) (07/20/2021 12:15 AM EDT) Glucose 164 65 - 199 mg/dL [facility] Comment:Diabetes: >=200 mg/d L plus symptoms Blood Urea Nitrogen 16 10 - 20 mg/dL [facility] Comment:result rechecked-[facility] Creatinine 0.59(L) 0.80 - 1.50 mg/dL [facility] Sodium 137 135 - 145 mmol/L [facility] Potassium 3.9 3.5 - 5.0 mmol/L [facility] Comment: Please note: ??Patients with WBC >100,000 may have falsely elevated Potassium levels. ??For accurate Potassium quantification in these patients send serum separator tube (gold top) for subsequent determinations. ??Contact the Clinical Chemistry Laboratory if there are any questions. Chloride 104 98 - 107 mmol/L [facility] Carbon Dioxide 20(L) 22 - 31 mmol/L [facility] Anion Gap 13 5 - 15 mmol/L [facility] Calcium 8.3(L) 8.5 - 10.5 mg/dL [facility] Est Glomerular Filtration Rate 100 >=60 mL/min/1. 73 m?? [facility] Comment: This patient? s estimated glomerular filtration rate (eGFR) is between 100 mL/min/1.73 m2 (patients with less muscle mass per kg body weight) and 116 mL/min/1.73 m2 (patients with more muscle mass per kg body weight) as determined by the CKD-EPI equation. Assessment of eGFR is not appropriate when creatinine concentrations are rapidly changing. For clinical decisions where creatinine clearance will affect therapy, a 24-hour urine creatinine clearance may be advised. Assignment of CKD stage 1 - 5 for patients with an eGFR near the transition point between stages may be based on clinical assessment of muscle mass and symptoms in addition to eGFR. Blood 07/20/2021 12:1 5 AM EDT 07/20/2021 12:34 AM EDT Narrative Resulting Agency Comment Spec In Lab Patricia Briggs MD CHEMISTRY ORDERABLES [facility] [place] [address] * MRI Angiogram Head & MRI Brain wwo Contrast (07/19/2021 9:46 PM EDT) Anatomical Region Laterality Modality Head Magnetic Resonan ce Impressions 07/20/2021 8:22 AM EDT 1. ??Single small focus of hyperintense signal on diffusion-weighted images in the deep white matter of the right posterior frontal lobe suspicious for small site of recent infarction. 2. ??Three small foci of susceptibility-related signal loss at mccrary-white junctions in the right cerebral hemisphere. Differential diagnosis for this asymmetric phenomenon includes small emboli, amyloid angiopathy, and sequela of trauma. 3. ?? No evidence of cerebral metastasis. 4. 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 Sites of more mild stenosis at the proximal M2 segment of the left inferior division and in the P2 segment of the right posterior cerebral artery Thank you for letting us participate in the care of this patient. ??If you are a health care provider and have any questions regarding this report, please contact the number below. ??For patients who have questions please contact the health director of health care marketing that requested your imaging first. ? Electronically signed by: Rian Madrid MD, [facility] ([phone]), at 07/20/2021 8:22 AM Narrative 07/20/2021 8:22 AM EDT EXAMINATION: MRI ANGIOGRAM HEAD & MRI BRAIN WWO CONTRAST CLINICAL HISTORY: ams 2/2 concern for mets ams s/p R tcar, also concern for brain mets TECHNIQUE: MRI of the brain and MR Angiogram of the head performed before and after the intravenous administration of 20cc Dotarem. 3-D MIP reconstructions were created. COMPARISON: CT angiogram of 07/18/2021 FINDINGS: There is age-consistent enlargement of the ventricles and sulci. Scattered foci of T2 prolongation are present in the white matter of the bilateral cerebral hemispheres to a moderate degree. Several of these lesions are cavitary and likely represent white matter infarcts; the others are nonspecific but most commonly reflecting small vessel ischemia. There is a single small focus of hyperintense signal on the diffusion-weighted images, located in the deep right posterior frontal matter; it is too small to evaluate on ADC maps; this lesion shows no corresponding hyperintense signal on the FLAIR sequence but it is so small area may be loss in volume averaging.. There is no mass or abnormal enhancement. Leptomeninges are of normal appearance. There are small foci of susceptibility-related signal loss at mccrary-white junctions within the right cerebral hemisphere, numbering three in total. No associated T2 prolongation is present at these sites MRA: There is mild irregularity of the paraclinoid internal carotid arteries bilaterally. There is moderate focal stenosis of the inferior left M2 division origin. There is moderate to severe stenosis of the P2 segment of the left posterior cerebral artery and mild/moderate smooth stenosis of the P2 segment of the right posterior cerebral artery. [employer] SUPER[employer]OR stenoses are similar appearance to those present on the CTA. The left MCA stenosis appears to be less severe on the CTA; this apparent change is more likely due to differences in the abnormalities rather than suddenly worsened stenosis. Procedure Note Rian Madrid MD - 07/20/2021 EXAMINATION: MRI ANGIOGRAM HEAD & MRI BRAIN WWO CONTRAST CLINICAL HISTORY: ams 2/2 concern for mets ams s/p R tcar, also concern for brain mets TECHNIQUE: MRI of the brain and MR Angiogram of the head performed before and afterthe intravenous administration of 20cc Dotarem. 3-D MIP reconstructions were created. COMPARISON: CT angiogram of 07/18/2021 FINDINGS: There is age-consistent enlargement of the ventricles and sulci. Scatteredfoci of T2 prolongation are present in the white matter of the bilateralcerebral hemispheres to a moderate degree. Several of these lesions are cavitaryand likely represent white matter infarcts; the others are nonspecific butmost commonly reflecting small vessel ischemia. There is a single small focusof hyperintense signal on the diffusion-weighted images, located in the deepright posterior frontal matter; it is too small to evaluate on ADC maps; thislesion shows no corresponding hyperintense signal on the FLAIR sequence but it isso small area may be loss in volume averaging.. There is no mass orabnormal enhancement. Leptomeninges are of normal appearance. There are small fociof susceptibility-related signal loss at mccrary-white junctions within theright cerebral hemisphere, numbering three in total. No associated S1aeoabqecxaic is present at these sites MRA: There is mild irregularity of the paraclinoid internal carotidarteries bilaterally. There is moderate focal stenosis of the inferior left [id number] origin. There is moderate to severe stenosis of the P2 segment of theleft posterior cerebral artery and mild/moderate smooth stenosis of the [id number] of the right posterior cerebral artery. [employer]PER[employer] SUPER[employer]OR stenoses are similar appearanceto those present on the CTA. The left MCA stenosis appears to be less severeon the CTA; this apparent change is more likely due to differences in theabnormalities rather than suddenly worsened stenosis. IMPRESSION 1. Single small focus of hyperintense signal on diffusion-weighted imagesin the deep white matter of the right posterior frontal lobe suspicious forsmall site of recent infarction. 2. Three small foci of susceptibility-related signal loss at mccrary-white junctions in the right cerebral hemisphere. Differential diagnosis forthis asymmetric phenomenon includes small emboli, amyloid angiopathy, andsequela of trauma. 3. No evidence of cerebral metastasis. 4. Moderate to severe focal stenosis of the P2 segment of the leftposterior cerebral artery. Sites of more mild stenosis at the proximal M2 segment ofthe left inferior division and in the P2 segment of the right posteriorcerebral artery Thank you for letting us participate in the care of this patient. If youare a health care provider and have any questions regarding this report,please contact the number below. For patients who have questions please contactthe health director of health care marketing that requested your imaging first. Electronically signed by: Rian Madrid MD, [facility]([phone]), at 07/20/2021 8:22 AM Patricia Briggs MD [facility] ORDERABLES * (ABNORMAL) POCT Glucose (07/19/2021 7:46 PM EDT) [facility] Glucose, POC 211(H) 65 - 199 mg/dL [facility] Comment: Supplemental ranges: <140 mg/dL before meals <180 mg/dL all other times of the day Blood 07/19/2021 7:46 PM EDT 07/19/2021 7:46 PM EDT Tabitha Del Castillo MD POINT OF CARE DANIEL T ORDERABLES [facility] [place] [address] * (ABNORMAL) BLOOD GAS 2 VENOUS (07/19/2021 4:16 PM EDT) pH, Venous 7.43(H) 7.32 - 7.42 [facility] PCO2, Venous 36(L) 41 - 51 mmHg [facility] PO2, Venous 42(H) 25 - 40 mmHg [facility] Bicarbonate, Venous 23.5 mmol/L [facility] Base Excess, Venous -0.8 mmol/L [facility] Hgb Blood Gas 11.5(L) 13.7 - 16.5 g/dL [facility] Oxyhemoglobin, Venous 77.7 % [facility] Carboxyhemoglob in, Venous 0.7 % [facility] Comment: Nonsmokers: 0.5-1.5% COHB Smokers: Variable, but usually less than 10% Toxic: 20-30% COHB Lethal: Greater than 60% COHB Methemoglobin, Venous 0.1 <=1.5 % [facility] Na Whole Blood 136 135 - 145 mmol/L [facility] K Whole Blood 3.4(L) 3.5 - 5.0 mmol/L [facility] Comment: Please note: Patients with WBC >100,000 may have falsely elevated Potassium levels. Contact the Clinical Chemistry Laboratory if there are any questions. ICa Whole Blood 1.14(L) 1.15 - 1.33 mmol/L [facility] Comment: Note: ??Total bilirubin higher than 20 mg/dL may lead to falsely low ionized calcium. CL Whole Blood 107 98 - 107 mmol/L [facility] Gluc Whole Bld 176 65 - 199 mg/dL [facility] Comment:Diabetes: >=200 mg/d L plus symptoms Lactate WB 1.1 0.5 - 2.2 mmol/L [facility] Fraction of Inspired Oxygen, Venous 21 % [facility] Blood Gas Source Venous [facility] Blood 07/19/2021 4:16 PM EDT 07/19/2021 4:16 PM EDT Patricia Briggs MD POINT OF CARE TEST O DANIEL Performing Organization Address [facility] Co de Phone Number [facility] [place] [address] * POCT Glucose (07/19/2021 4:03 PM EDT) Glucose, POC 183 65 - 199 mg/dL [facility] Comment: Supplemental ranges: <140 mg/dL before meals <180 mg/dL all other times of the day Blood 07/19/2021 4:03 PM EDT 07/19/2021 4:03 PM EDT Patricia Briggs MD POINT OF CARE TEST Brady SANCHEZ Performing Organization Address [facility]/ZIP Co de Phone Number [facility] [place] [address] * Vitamin B1, whole blood (07/19/2021 3:25 PM EDT) Vit B1 Lvl Wb (JULY) 108 70 - 180 nmol/L [facility] Comment: ADDITIONAL INFORMATION This test was developed and its performance characteristics determined by [facility] in a manner consistent with CLIA requirements. This test has not been cleared or approved by the U.S. Food and Drug Administration. Test Performed by: [facility] [address] [place] [id number] Braiding Machine Tender: Mendez Alonzo M.D. Ph.D.; CLIA# [id number] Blood 07/19/2021 3:25 PM EDT 07/19/2021 4:08 PM EDT Narrative Resulting Agency Comment Spec In Lab Patricia Briggs MD LAB SEND OUT ORDERAB LES [facility] [place] [address] * POCT Glucose (07/19/2021 11:53 AM EDT) Glucose, POC 153 65 - 199 mg/dL [facility] Comment: Supplemental ranges: <140 mg/dL before meals <180 mg/dL all other times of the day Blood 07/19/2021 11:5 3 AM EDT 07/19/2021 11:53 AM EDT Patricia Briggs MD POINT OF CARE TEST O RDERABLES Performing Organization Address City/[facility]/ZIP Co de Phone Number [facility] [place] [address] * (ABNORMAL) Rapid Drug Screen w/o Confirmation, Urine (07/19/2021 10:45 AM EDT) Barbiturates Screen, Urine None Detected None Detected [facility] Comment: The barbiturate screen detects barbiturates at concentrations >200 ng/mL. Note: Not all barbiturates cross-react equally with antibody used in this screen. A ? Presumptive Positive? result indicates that the screening result was positive but has not yet been confirmed by a highly-specific method. As with any screen, occasional false positive results from cross-reacting substances may occur. Not for Medico-Legal Purposes. Benzodiazepines Screen, Urine None Detected None Detected [facility] Comment: The benzodiazepines screen detects benzodiazepines at concentrations >100 ng/mL. Not all benzodiazepines cross-react equally with antibody used in this screen. Due to the low dosage of clonazepam, false negatives may be obtained due to low concentration of clonazepam metabolites. A ? Presumptive Positive? result indicates that the screening result was positive but has not yet been confirmed by a highly-specific method. As with any screen, occasional false positive results from cross-reacting substances may occur. Not for Medico-Legal Purposes. Cocaine Screen, Urine None Detected None Detected [facility] Comment: The cocaine metabolites screen detects benzoylecgonine (Cocaine Metabolite) at concentrations >150 ng/mL. A ? Presumptive Positive? result indicates that the screening result was positive but has not yet been confirmed by a highly-specific method. As with any screen, occasional false positive results from cross-reacting substances may occur. Not for Medico-Legal Purposes. Methadone Metabolites Screen, Urine None Detected None Detected [facility] Comment: The methadone metabolite screen detects EDDP (major methadone metabolite) at concentrations >100 ng/mL. A ? Presumptive Positive? result indicates that the screening result was positive but has not yet been confirmed by a highly-specific method. As with any screen, occasional false positive results from cross-reacting substances may occur. Not for Medico-Legal Purposes. Opiate Screen, Urine None Detected None Detected [facility] Comment: The opiates screen detects opiates at concentrations >300 ng/mL. Please note that oxycodone, oxymorphone, fentanyl, tramadol, and other synthetic opioids are not detected by the opiate screen. A ? Presumptive Positive? result indicates that the screening result was positive but has not yet been confirmed by a highly-specific method. As with any screen, occasional false positive results from cross-reacting substances may occur. Not for Medico-Legal Purposes. Cannabinoid Screen, Urine None Detected None Detected [facility] Comment: The marijuana metabolites screen detects the THC metabolite (15-pmo-0-carboxy-delta 9-THC) at concentrations >20 ng/mL. A ? Presumptive Positive? result indicates that the screening result was positive but has not yet been confirmed by a highly-specific method. As with any screen, occasional false positive results from cross-reacting substances may occur. Not for Medico-Legal Purposes. Oxycodone Screen, Urine Presumptive Pos(A) None Detected [facility] Comment: The oxycodone screen detects oxycodone and oxymorphone at concentrations >100 ng/mL. A ? Presumptive Positive? result indicates that the screening result was positive but has not yet been confirmed by a highly-specific method. As with any screen, occasional false positive results from cross-reacting substances may occur. Not for Medico-Legal Purposes. Buprenorphine Screen, Urine None Detected None Detected [facility] Comment: The buprenorphine screen detects buprenorphine at concentrations >5 ng/mL. A ? Presumptive Positive? result indicates that the screening result was positive but has not yet been confirmed by a highly-specific method. As with any screen, occasional false positive results from cross-reacting substances may occur. Not for Medico-Legal Purposes. Fentanyl Screen, Urine None Detected None Detected [facility] Comment: The fentanyl screen detects fentanyl at concentrations >2 ng/mL. A ? Presumptive Positive? result indicates that the screening result was positive but has not yet been confirmed by a highly-specific method. As with any screen, occasional false positive results from cross-reacting substances may occur. Not for Medico-Legal Purposes. Tricyclics Screen, Urine None Detected None Detected [facility] Comment: The tricyclics screen detects tricyclic antidepressants at concentrations >150 ng/mL. Not all tricyclics cross-react equally with the antibody used in this screen. A ? Presumptive Positive? result indicates that the screening result was positive but has not yet been confirmed by a highly-specific method. As with any screen, occasional false positive results from cross-reacting substances may occur. Not for Medico-Legal Purposes. Ethanol Screen, Urine None Detected None Detected [facility] Comment:This urine ethanol a ssay detects ethanol at concentrations >/= 100 mg/L. Amphetamines Screen, Urine None Detected None Detected [facility] Comment: The amphetamine screen detects d-amphetamine and d-methamphetamine at concentrations >300 ng/mL. A ? Presumptive Positive? result indicates that the screening result was positive but has not yet been confirmed by a highly-specific method. As with any screen, occasional false positive results from cross-reacting substances may occur. Not for Medico-Legal Purposes. Adulterants Screen, Urine None Detected None Detected [facility] Comment: No adulteration or dilution of this urine sample was detected. All urine samples submitted for urine drugs of abuse analysis are tested for creatinine concentration, pH, and for the presence of oxidants, nitrites, and chromate. Urine 07/19/2021 10:4 5 AM EDT 07/19/2021 10:55 AM EDT Narrative Resulting Agency Comment Spec In Lab Debi CORMIER CHEMISTRY ORDERABLES Performing Organization Address [facility] Co de Phone Number [facility] [place] [address] * Rapid Drug Screen, Urine (DARWIN Request) (07/19/2021 10:45 AM EDT) DARWIN Conf Requested No [facility] Comment: Collection date/time has been modified to: 10:45:00. ??Previous collection date/time: 10:09:00. Corrected from No [NA] on 07/19/21 10:56:25 EDT by Kai Butterfield. DARWIN Requested See Comment [facility] Comment: Refer to Rapid Drug Screen w/o Confirmation, Urine for results. Collection date/time has been modified to: 10:45:00. ??Previous collection date/time: 10:09:00. Corrected from See Comment [NA] on 07/19/21 10:56:25 EDT by Kai Butterfield. Urine 07/19/2021 10:4 5 AM EDT 07/19/2021 10:55 AM EDT Narrative Resulting Agency Comment Spec In Lab Patricia Briggs MD URINE ORDERABLES Performing Organization Address [facility]/ZIP Co de Phone Number [facility] [place] [address] * POCT Glucose (07/19/2021 8:00 AM EDT) Glucose, POC 129 65 - 199 mg/dL [facility] Comment: Supplemental ranges: <140 mg/dL before meals <180 mg/dL all other times of the day Blood 07/19/2021 8:00 AM EDT 07/19/2021 8:00 AM EDT Patricia Briggs MD POINT OF CARE TEST O RDERABLES KRISTIN [facility] [place] [address] * Transcranial Duplex, complete (07/19/2021 6:05 AM EDT) VB Text Report Department: Vascular Surgery Lab Patient: [id number] (WERO SADLER) CPT: 77134 Referring Physician: SALOME RODRIGUEZ ?? Phone: Indications: Altered mental status s/p RIGHT TCAR; reperfusion hyperemia Findings: Right ?Mean Velocity (cm/s) ??Pulsatility Index ?? Middle Cerebral Artery Proximal ?43 ?1.1 ?? Middle Cerebral Artery Mid ? 57 ?1.1 ?? Middle Cerebral Artery Distal ?60 ?1.2 ?? Left ? Mean Velocity (cm/s) ??Pulsatility Index ?? Middle Cerebral Artery Proximal ?69 ?1.3 ?? Middle Cerebral Artery Mid ? 72 ?1.5 ?? Middle Cerebral Artery Distal ?65 ?1.2 ?? Interpretation: Patent MCA vessels bilaterally with no evidence of reperfusion hyperemia. Comparison: ??No previous study in our vascular lab database for comparison. Electronically Signed by: SILVERIO VILLASEÑOR MD on 2021-07-20 09:34:29 AM [facility] VB Text Report End of Report [facility] 07/19/2021 6:05 AM EDT Salome Rodriguez APRN VASCULAR ORDERABLES Performing Organization Address City/[facility]/ZIP Co de Phone Number [facility] * POCT Glucose (07/19/2021 4:02 AM EDT) Glucose, POC 169 65 - 199 mg/dL [facility] Comment: Supplemental ranges: <140 mg/dL before meals <180 mg/dL all other times of the day Blood 07/19/2021 4:02 AM EDT 07/19/2021 4:02 AM EDT Patricia Briggs MD POINT OF CARE TEST O RDERABLES Performing Organization Address City/[facility]/ZIP Co de Phone Number [facility] [place] [address] * Differential, Automated (07/19/2021 1:15 AM EDT) Neutrophil % 66.5 % [facility] Neutrophil Absolute 4.33 1.70 - 6.10 x10(3)/[facility] Lymph % 19.7 % [facility] Lymphocytes Abs 1.3 0.9 - 3.2 x10(3)/[facility] Monocyte % 10.3 % [facility] Monocyte Abs 0.7 0.3 - 0.9 x10(3)/[facility] Eos % 2.8 % [facility] Eosinophils Abs 0.2 0.0 - 0.4 x10(3)/[facility] Basophil % 0.5 % [facility] Baso Absolute 0.0 0.0 - 0.1 x10(3)/[facility] Immature Gran % 0.20 % [facility] Comment: Immature granulocytes(IG's)percentage and absolute count will include metamyelocytes, myelocytes, and promyelocytes. Blood smears from CBCs yielding IG's will be scanned manually for concordance. If this scan disagrees with the automated IG or if promyelocytes are noted, a manual differential will be performed. Immature Gran Absolute 0.01 0.00 - 0.04 x10(3)/[facility] Blood 07/19/2021 1:15 AM EDT 07/19/2021 1:21 AM EDT Narrative Resulting Agency Comment Spec In Lab Abbi CORMIER HEMATOLOGY ORDERABL ES [facility] [place] [address] * (ABNORMAL) Hemogram (07/19/2021 1:15 AM EDT) White Blood Cell 6.5 4.0 - 9.5 x10(3)/[facility] Red Blood Cell 3.50(L) 4.58 - 5.54 x10(6)/mc L [facility] Hemoglobin 10.9(L) 13.7 - 16.5 g/dL [facility] Hematocrit 32.4(L) 40.5 - 48.5 % [facility] Mean Cell Volume 92.6 82.9 - 93.1 fL [facility] Mean Cell Hemoglobin 31.1 27.5 - 32.1 pg [facility] Mean Cell Hemoglobin Concentration 33.6 32.0 - 35.7 g/dL [facility] Platelet 216 145 - 357 x10(3)/mc L [facility] RDW Standard Deviation 45.0 36.0 - 45.0 fL [facility] RDW coefficient of variation 13.2 11.4 - 13.8 % [facility] Mean Platelet Volume 10.2 7.6 - 12.9 fL [facility] NRBC% auto 0.0 % [facility] NRBC Absolute 0.000 0.000 - 0.000 x10(3)/mc L [facility] Blood 07/19/2021 1:15 AM EDT 07/19/2021 1:21 AM EDT Narrative Resulting Agency Comment Spec In Lab Abbi CORMIER HEMATOLOGY ORDERABL ES Performing Organization Address City/[facility]/ZIP Co de Phone Number [facility] [place] [address] * Phosphorus (07/19/2021 1:15 AM EDT) Phosphorus 3.2 2.5 - 4.5 mg/dL [facility] Blood 07/19/2021 1:15 AM EDT 07/19/2021 1:21 AM EDT Narrative Resulting Agency Comment Spec In Lab Patricia Briggs MD CHEMISTRY ORDERABLES Performing Organization Address [facility]/ZIP Co de Phone Number [facility] [place] [address] * Magnesium (07/19/2021 1:15 AM EDT) Magnesium 1.06 0.69 - 1.07 mmol/L [facility] Blood 07/19/2021 1:15 AM EDT 07/19/2021 1:21 AM EDT Narrative Resulting Agency Comment Spec In Lab Patricia Briggs MD CHEMISTRY ORDERABLES Performing Organization Address [facility]/ZIP Co de Phone Number [facility] [place] [address] * (ABNORMAL) Basic Metabolic Panel (non-fasting) (07/19/2021 1:15 AM EDT) Glucose 168 65 - 199 mg/dL [facility] Comment:Diabetes: >=200 mg/d L plus symptoms Blood Urea Nitrogen 9(L) 10 - 20 mg/dL [facility] Creatinine 0.56(L) 0.80 - 1.50 mg/dL [facility] Sodium 138 135 - 145 mmol/L [facility] Potassium 3.6 3.5 - 5.0 mmol/L [facility] Comment: Please note: ??Patients with WBC >100,000 may have falsely elevated Potassium levels. ??For accurate Potassium quantification in these patients send serum separator tube (gold top) for subsequent determinations. ??Contact the Clinical Chemistry Laboratory if there are any questions. Chloride 104 98 - 107 mmol/L [facility] Carbon Dioxide 21(L) 22 - 31 mmol/L [facility] Anion Gap 13 5 - 15 mmol/L [facility] Calcium 8.6 8.5 - 10.5 mg/dL [facility] Est Glomerular Filtration Rate 103 >=60 mL/min/1. 73 m?? [facility] Comment: This patient? s estimated glomerular filtration rate (eGFR) is between 103 mL/min/1.73 m2 (patients with less muscle mass per kg body weight) and 119 mL/min/1.73 m2 (patients with more muscle mass per kg body weight) as determined by the CKD-EPI equation. Assessment of eGFR is not appropriate when creatinine concentrations are rapidly changing. For clinical decisions where creatinine clearance will affect therapy, a 24-hour urine creatinine clearance may be advised. Assignment of CKD stage 1 - 5 for patients with an eGFR near the transition point between stages may be based on clinical assessment of muscle mass and symptoms in addition to eGFR. Blood 07/19/2021 1:15 AM EDT 07/19/2021 1:21 AM EDT Narrative Resulting Agency Comment Spec In Lab Patricia Briggs MD CHEMISTRY ORDERABLES [facility] [place] [address] * COVID-19 PCR (07/19/2021 1:10 AM EDT) SARS-CoV-2 RNA (Rapid) Not Detected Not Detected [facility] Comment: This result should be interpreted in combination with the clinical observations, patient history and epidemiological information. For testing of asymptomatic individuals, assay performance characteristics and clinical utility have not been evaluated. Testing for SARS-CoV-2 (Severe acute respiratory syndrome coronavirus 2, formerly known as 2019 novel coronavirus or 2019-nCoV) to aid in the diagnosis of COVID-19 is performed using the Simplexa COVID-19 Direct Assay by Chumen Wenwen as authorized by the FDA issued Emergency Use Authorization (EUA). This assay is intended for In-vitro Diagnostic (IVD) use with nasopharyngeal swabs collected from individuals meeting the CDC criteria for testing. The assay is performed based on the instructions for use and additional guidance provided by the FDA. Testing is performed in the Microbiology Laboratory within the Department of Pathology and Laboratory Medicine at [facility], certified under the Clinical Laboratory Improvement Amendments of 1988 (CLIA), 42 U.S.C. section 263a, to perform high complexity tests. Assay performance has been verified according to clinical laboratory regulatory requirements. Test results are provided above. A result of Not Detected indicates that the viral RNA target is not present but does not preclude SARS-CoV-2 infection. False negative results may occur if a specimen is improperly collected, transported or handled; if amplification inhibitors are present; or if inadequate numbers of viral particles are present in the specimen. A result of Detected suggests a current or recent infection and the patient is presumed to be infected. Positive and negative predictive values for this test are highly dependent on disease prevalence. A result of Invalid indicates the inability to conclusively determine the presence or absence of SARS-CoV-2 RNA in the sample which can be due to a variety of factors. Recollection is recommended in the case of an invalid result. CDC COVID-19 criteria for testing on human specimens and clinical management guidance information are available at the CDC Coronavirus Disease 2019 (COVID-19) webpage under Information for Healthcare Professionals (https://www.cdc.gov/coronavirus/2019-ncov/hcp/index.html). Additional information about this and other EUA tests can be found in provider and patient fact sheets at the following FDA website: https://www.fda.gov/medical-devices/bbtzaotrdjm-cibwnig-3950-qlntm-10-fovofbmqt- use-a uachxdcczuyty-dvdutqr-fqkcohn/xxdkw-jmjctombbnt-ehwo SARS-CoV-2 Source ORDER BUILDER LOADER Swab MA RY [facility] Nasopharyngeal Swab 07/20/19 1:10 AM EDT 07/19/2021 1:47 AM EDT Comment:Symptoms->Surveillan ce Narrative Resulting Agency Comment Spec In Lab Patricia Briggs MD MICROBIOLOGY - GENER AL ORDERABLES Performing Organization Address [facility]/ZIP Co de Phone Number [facility] [place] [address] * POCT Glucose (07/18/2021 11:57 PM EDT) Glucose, POC 158 65 - 199 mg/dL [facility] Comment: Supplemental ranges: <140 mg/dL before meals <180 mg/dL all other times of the day Blood 07/18/2021 11:5 7 PM EDT 07/18/2021 11:57 PM EDT Patricia Briggs MD POINT OF CARE TEST O RDERABLES Performing Organization Address [facility] Co de Phone Number [facility] [place] [address] * (ABNORMAL) Urinalysis without microscopic (07/18/2021 10:10 PM EDT) Glucose, Urine Dipstick 100(A) Negative mg/dL [facility] Protein, Urine Dipstick Negative Negative mg/dL [facility] Bilirubin, Urine Dipstick Negative Negative mg/dL [facility] Comment: Clinical correlation required for positive Urine Bilirubin results as false positive may occur with some drugs and drug related products. If a false positive is suspected a serum total bilirubin should be considered if clinically indicated. Urobilinogen, Urine Dipstick Normal Normal mg/dL [facility] pH, Urn (dipstick) 6.0 5.0 - 8.0 [facility] Blood, Urine Dipstick Moderate(A) Negative mg/dL [facility] Ketone, Urine Dipstick Negative Negative mg/dL [facility] Nitrite, Urine Dipstick Negative Negative [facility] Leukocytes, Urine Dipstick Negative Negative [facility] Appearance, Urine Dipstick Clear Clear [facility] Specific Fifty Six Urine Automated 1.020 1.006 - 1.030 [facility] Color, Urine Dipstick Yellow [facility] Urine 07/18/2021 10:1 0 PM EDT 07/18/2021 10:28 PM EDT Narrative Resulting Agency Comment Spec In Lab Patricia Briggs MD URINE ORDERABLES [facility] [place] [address] * Request For 2nd Read CT Head And Spine (07/18/2021 9:57 PM EDT) Anatomical Region Laterality Modality Head, C-spine, T-spine, L-spine SO Impressions 07/19/2021 8:15 AM EDT Recent surgical changes at the right carotid. No severe stenosis or occlusion. Thank you for letting us participate in the care of this patient. ??If you are a health care provider and have any questions regarding this report, please contact the number below. ??For patients who have questions please contact the health director of health care marketing that requested your imaging first. ? Electronically signed by: Andrew Canseco MD, [facility] ([phone]), at 07/19/2021 8:15 AM Narrative 07/19/2021 8:15 AM EDT EXAMINATION: REQUEST FOR 2ND READ CT HEAD AND SPINE CLINICAL HISTORY: AMS and visual hallucinations. Recent R ICA TCAR 07/14, Please compare with earlier Head CT; Sending Institution [facility]; Date of exam [id number]; I believe a reinterpretation of this exam may alter care of Patient. Yes TECHNIQUE: CTA carotids and benton of Veras performed following the intravenous administration of 100 mL Omnipaque 350. Study was performed at [facility] on 07/18/2021 COMPARISON: Angiogram images 07/14/2021 FINDINGS: Atherosclerotic plaque is present on the carotid bifurcation with mild narrowing of the left common carotid and brachycephalic origins. Right carotid: Common carotid origin is normal. There is thickening of the wall of the common carotid proximally with surrounding soft tissue attenuation material presumably representing small hematoma. This extends to the right anterior neck. A stent extends from the common carotid artery through the internal carotid. Mild degree of ICA narrowing is unchanged compared to the intraoperative angiogram. Cervical ICA is otherwise normal in caliber. The origin of the external carotid is occluded. Left carotid: There is mild narrowing at the origin. There is partial surgical clips adjacent to the bifurcation. There is mild (less than 50%) narrowing of the cervical ICA superior to the bifurcation. Cervical ICA is otherwise normal in caliber. Right vertebral artery: There is plaque at the origin with mild narrowing. There are areas of mild narrowing by osteophyte. No severe focal stenosis or occlusion. Left vertebral artery: There is plaque at the origin of the long the course of the Right vertebral artery. No more than mild narrowing. No severe focal stenosis or occlusion in the neck. Intracranial circulation: There is atherosclerotic calcification of the cavernous carotids with mild narrowing. MCA, ANUSHA, and visualized branches appear normal. Intradural vertebral arteries, basilar artery are normal in caliber. There is moderate focal stenosis of left P2/P3 segment of the posterior cerebral artery. Nonvascular findings: There are surgical changes in the left orbit. Right neck surgical changes with small presumed hematoma as described above. Visualized upper lungs are clear. There are extensive changes of cervical spondylosis. Procedure Note Andrew Canseco MD - 07/19/2021 EXAMINATION: REQUEST FOR 2ND READ CT HEAD AND SPINE CLINICAL HISTORY: AMS and visual hallucinations. Recent R ICA TCAR 07/14,Please compare with earlier Head CT; Sending Institution [facility];Date of exam [id number]; I believe a reinterpretation of this exam may alter careof Patient. Yes TECHNIQUE: CTA carotids and benton of Veras performed following theintravenous administration of 100 mL Omnipaque 350. Study was performed at [facility] on 07/18/2021 COMPARISON: Angiogram images 07/14/2021 FINDINGS: Atherosclerotic plaque is present on the carotid bifurcationwith mild narrowing of the left common carotid and brachycephalic origins. Right carotid: Common carotid origin is normal. There is thickening of thewall of the common carotid proximally with surrounding soft tissueattenuation material presumably representing small hematoma. This extends to theright anterior neck. A stent extends from the common carotid artery throughthe internal carotid. Mild degree of ICA narrowing is unchanged compared tothe intraoperative angiogram. Cervical ICA is otherwise normal in caliber.The origin of the external carotid is occluded. Left carotid: There is mild narrowing at the origin. There is partialsurgical clips adjacent to the bifurcation. There is mild (less than 50%) narrowingof the cervical ICA superior to the bifurcation. Cervical ICA is otherwisenormal in caliber. Right vertebral artery: There is plaque at the origin with mild narrowing.There are areas of mild narrowing by osteophyte. No severe focal stenosis or occlusion. Left vertebral artery: There is plaque at the origin of the long thecourse of the Right vertebral artery. No more than mild narrowing. No severe focal stenosis or occlusion in the neck. Intracranial circulation: There is atherosclerotic calcification of the cavernous carotids with mild narrowing. MCA, ANUSHA, and visualized branchesappear normal. Intradural vertebral arteries, basilar artery are normal incaliber. There is moderate focal stenosis of left P2/P3 segment of the posteriorcerebral artery. Nonvascular findings: There are surgical changes in the left orbit. Rightneck surgical changes with small presumed hematoma as described above.Visualized upper lungs are clear. There are extensive changes of cervicalspondylosis. IMPRESSION Recent surgical changes at the right carotid. No severe stenosis orocclusion. Thank you for letting us participate in the care of this patient. If youare a health care provider and have any questions regarding this report,please contact the number below. For patients who have questions please contactthe health director of health care marketing that requested your imaging first. Electronically signed by: Andrew Canseco MD, [facility]([phone]), at 07/19/2021 8:15 AM Salome Rodriguez HEALTH COACH IMG OUTSIDE INTERPRE TATION ORDERABLES * XR Abdomen 1 view (Generic) (07/18/2021 9:45 PM EDT) Anatomical Region Laterality Modality Abdomen N/A Digital Radiogra phy Impressions 07/19/2021 8:38 AM EDT Enteric feeding tube tip is subdiaphragmatic, at a level just distal to the expected gastroesophageal junction, overlying the proximal stomach. Further advancement is suggested. I have personally reviewed the image(s) and the resident's interpretation and agree with the findings, Yessi Rivas MD at 07/19/2021 8:38 AM Thank you for letting us participate in the care of this patient. ??If you are a health care provider and have any questions regarding this report, please contact the number below. ??For patients who have questions please contact the health director of health care marketing that requested your imaging first. ? Electronically signed by: Yessi Rivas MD, [facility] ([phone]), at 07/19/2021 8:38 AM Narrative 07/19/2021 8:38 AM EDT EXAMINATION: XR ABDOMEN 1 VIEW (GENERIC) CLINICAL HISTORY: DHT placement TECHNIQUE: Single AP portable supine radiograph centered at the level of the diaphragm 07/18/2021 at 2140 hours COMPARISON: Outside institution AP upright chest radiograph 07/18/2021 electronically time stamped 0856 hours FINDINGS: Interval placement of a weighted tip enteric feeding tube projecting at a level just distal to the expected gastroesophageal junction. No dilated air-filled loops of small or large bowel in the visualized portions of the upper abdomen. Partially imaged median sternotomy wires and mediastinal clips from coronary artery bypass grafting redmonstrated. Bibasilar vascular crowding. Procedure Note Yessi Rivas MD - 07/19/2021 EXAMINATION: XR ABDOMEN 1 VIEW (GENERIC) CLINICAL HISTORY: DHT placement TECHNIQUE: Single AP portable supine radiograph centered at the level of thediaphragm 07/18/2021 at 2140 hours COMPARISON: Outside institution AP upright chest radiograph 07/18/2021 electronicallytime stamped 0856 hours FINDINGS: Interval placement of a weighted tip enteric feeding tube projecting at alevel just distal to the expected gastroesophageal junction. No dilated air-filled loops of small or large bowel in the visualizedportions of the upper abdomen. Partially imaged median sternotomy wires and mediastinal clips fromcoronary artery bypass grafting redmonstrated. Bibasilar vascular crowding. IMPRESSION Enteric feeding tube tip is subdiaphragmatic, at a level just distal tothe expected gastroesophageal junction, overlying the proximal stomach.Further advancement is suggested. I have personally reviewed the image(s) and the resident's interpretationand agree with the findings, Yessi Rivas MD at 07/19/2021 8:38 AM Thank you for letting us participate in the care of this patient. If youare a health care provider and have any questions regarding this report,please contact the number below. For patients who have questions please contactthe health director of health care marketing that requested your imaging first. Electronically signed by: Yessi Rivas MD, [facility]([phone]), at 07/19/2021 8:38 AM Salome Rodriguez APRN IMG DX ORDERABLES * POCT Glucose (07/18/2021 8:40 PM EDT) Glucose, POC 146 65 - 199 mg/dL [facility] Comment: Supplemental ranges: <140 mg/dL before meals <180 mg/dL all other times of the day Blood 07/18/2021 8:40 PM EDT 07/18/2021 8:40 PM EDT Patricia Briggs MD POINT OF CARE TEST O RDERABLES Performing Organization Address [facility] Co de Phone Number [facility] [place] [address] * T4 Total (07/18/2021 8:33 PM EDT) Pathologist [facility] T4 Total 6.6 4.6 - 7.9 mcg/dL [facility] Comment: Reference Interval (mcg/dL): Females: ??First Trimester: 6.3-13.5 ??Second Trimester: 7.1-14.3 ??Third Trimester: 6.9-14.1 Blood Venous Draw / Unknown 07/18/2021 8:33 PM EDT 07/18/2021 9:03 PM EDT Narrative Resulting Agency Comment Spec In Lab Salome Rodriguez APRN CHEMISTRY ORDERABLES Performing Organization Address [facility] Co de Phone Number [facility] [place] [address] * Type and Screen Validity (07/18/2021 8:33 PM EDT) [facility] T&S only valid at [facility] Comment:This Type and Screen result is only valid at the [facility] Blood 07/18/2021 8:33 PM EDT 07/18/2021 8:45 PM EDT Narrative Resulting Agency Comment Spec In Lab Abbi [facility] ORDE PROSPER Performing Organization Address [facility]/ZIP Co de Phone Number [facility] [place] [address] * ABORH Recheck Status (07/18/2021 8:33 PM EDT) [facility] ABORH Type Recheck Completed [facility] Blood 07/18/2021 8:33 PM EDT 07/18/2021 8:45 PM EDT Narrative Resulting Agency Comment Spec In Lab Abbi [facility] ORDE RABLES Performing Organization Address City/[facility]/[place] [address] * Differential, Automated (07/18/2021 8:33 PM EDT) Neutrophil % 64.1 % [facility] Neutrophil Absolute 4.57 1.70 - 6.10 x10(3)/[facility] Lymph % 21.2 % [facility] Lymphocytes Abs 1.5 0.9 - 3.2 x10(3)/[facility] Monocyte % 10.7 % [facility] Monocyte Abs 0.8 0.3 - 0.9 x10(3)/[facility] Eos % 3.4 % [facility] Eosinophils Abs 0.2 0.0 - 0.4 x10(3)/[facility] Basophil % 0.3 % [facility] Baso Absolute 0.0 0.0 - 0.1 x10(3)/[facility] Immature Gran % 0.30 % [facility] Comment: Immature granulocytes(IG's)percentage and absolute count will include metamyelocytes, myelocytes, and promyelocytes. Blood smears from CBCs yielding IG's will be scanned manually for concordance. If this scan disagrees with the automated IG or if promyelocytes are noted, a manual differential will be performed. Immature Gran Absolute 0.02 0.00 - 0.04 x10(3)/[facility] Blood 07/18/2021 8:33 PM EDT 07/18/2021 8:48 PM EDT Narrative Resulting Agency Comment Spec In Lab Abbi [facility] HEMATOLOGY ORDERABL ES Performing Organization Address City/[facility]/ZIP Co de Phone Number [facility] [place] [address] * (ABNORMAL) Hemogram (07/18/2021 8:33 PM EDT) [facility] White Blood Cell 7.1 4.0 - 9.5 x10(3)/[facility] Red Blood Cell 3.78(L) 4.58 - 5.54 x10(6)/[facility] Hemoglobin 11.8(L) 13.7 - 16.5 g/dL [facility] Hematocrit 35.1(L) 40.5 - 48.5 % [facility] Mean Cell Volume 92.9 82.9 - 93.1 fL [facility] Mean Cell Hemoglobin 31.2 27.5 - 32.1 pg [facility] Mean Cell Hemoglobin Concentration 33.6 32.0 - 35.7 g/dL [facility] Platelet 219 145 - 357 x10(3)/[facility] RDW Standard Deviation 45.4(H) 36.0 - 45.0 [facility] RDW coefficient of variation 13.4 11.4 - 13.8 % [facility] Mean Platelet Volume 9.9 7.6 - 12.9 [facility] NRBC% auto 0.0 % [facility] NRBC Absolute 0.000 0.000 - 0.000 x10(3)/[facility] Blood 07/18/2021 8:33 PM EDT 07/18/2021 8:48 PM EDT Narrative Resulting Agency Comment Spec In Lab Abbi [facility] HEMATOLOGY ORDERABL ES [facility] [place] [address] * Antibody screen (07/18/2021 8:33 PM EDT) Pathologist [facility] Ab Screen Interp Negative [facility] Expires at [id number] on: 07/21/2021 [facility] Blood 07/18/2021 8:33 PM EDT 07/18/2021 8:45 PM EDT Narrative Resulting Agency Comment Spec In Lab Abbi Dom [facility] ORDShante CHENG [facility] [place] [address] * ABO/Rh Typing (07/18/2021 8:33 PM EDT) ABORH Type O Pos [facility] Blood 07/18/2021 8:33 PM EDT 07/18/2021 8:45 PM EDT Narrative Resulting Agency Comment Spec In Lab Abbi [facility] ORDShante CHENG Performing Organization Address City/[facility]/ZIP Co de Phone Number [facility] [place] [address] * (ABNORMAL) Ammonia (07/18/2021 8:33 PM EDT) Ammonia 12(L) 16 - 60 mcmol/L [facility] Blood 07/18/2021 8:33 PM EDT 07/18/2021 8:48 PM EDT Narrative Resulting Agency Comment Spec In Lab Salome Rodriguez HEALTH COACH CHEMISTRY ORDERABLES Performing Organization Address City/[facility]/ZIP Co de Phone Number [facility] [place] [address] * (ABNORMAL) Hepatic Function Panel (07/18/2021 8:33 PM EDT) Protein, Total 6.7 6.1 - 8.0 g/dL [facility] Albumin 4.1 3.2 - 5.2 g/dL [facility] Aspartate Aminotransferase 22 0 - 39 unit/L [facility] Alanine Aminotransferase 16 0 - 55 unit/L [facility] Alkaline Phosphatase 96 40 - 130 unit/L [facility] Bilirubin, Total 1.4(H) 0.2 - 1.3 mg/dL [facility] Bilirubin, Direct 0.3 0.0 - 0.3 mg/dL [facility] Blood 07/18/2021 8:33 PM EDT 07/18/2021 8:48 PM EDT Narrative Resulting Agency Comment Spec In Lab Salome Rodriguez ARNOLD CHEMISTRY ORDERABLES Performing Organization Address [facility] Co de Phone Number [facility] [place] [address] * APTT (07/18/2021 8:33 PM EDT) Partial Thromboplastin Time 30 25 - 37 sec [facility] Comment: The PTT is NOT appropriate for heparin monitoring. Use the Anti-Xa level for heparin monitoring (HEP UFH) or LMWH monitoring (HEP LMW). A PTT less than 37 seconds generally indicates adequate hemostasis. Blood 07/18/2021 8:33 PM EDT 07/18/2021 8:48 PM EDT Narrative Resulting Agency Comment Spec In Lab Salome Rodriguez ARNOLD HEMATOLOGY ORDERABLE S Performing Organization Address [facility] de Phone Number [facility] [place] [address] * Prothrombin Time (07/18/2021 8:33 PM EDT) Prothrombin Time 12.3 9.4 - 12.5 sec [facility] International Normalization Ratio 1.1 [facility] Comment: An INR <2.0 indicates adequate procoagulant activity for hemostasis in most patients without underlying bleeding disorders, though the INR may not adequately reflect hemostatic capacity in patients with liver disease and synthetic impairment. The recommended target INR range for therapeutic anticoagulation is 2.0 ? 3.0 for most applications, though lower and higher ranges may be appropriate depending on clinical circumstances. Blood 07/18/2021 8:33 PM EDT 07/18/2021 8:48 PM EDT Narrative Resulting Agency Comment Spec In Lab Salome Fernandes Virginiabrady ARNOLD HEMATOLOGY ORDERABLE S [facility] [place] [address] * (ABNORMAL) Hemoglobin A1c (07/18/2021 8:33 PM EDT) Hemoglobin A1c 7.8(H) 4.3 - 5.6 % [facility] Comment: Reference Range: 4.3 - 5.6% [...] [id number] Estimated Average Glucose See note mg/dL [facility] Comment: Estimated Average Glucose not appropriate [...] the ADA website. César SAMPSON, Steven J, Soto R, et al. ??Translating the A1C assay into estimated average glucose values. ??Diabetes Care 2008:31(8):3447-0923. Blood 07/18/2021 8:33 PM EDT 07/18/2021 8:48 PM EDT Narrative Resulting Agency Comment Spec In Lab Salome Colemano HEALTH COACH CHEMISTRY ORDERABLES Performing Organization Address [facility] Co de Phone Number [facility] [place] [address] * (ABNORMAL) TSH (07/18/2021 8:33 PM EDT) Thyroid Stimulating Hormone 4.86(H) 0.27 - 4.20 mcIU/mL [facility] Comment: Reference Interval (mcIU/mL): Females: ??First Trimester: 0.23-3.88 ??Second Trimester: 0.22-3.90 ??Third Trimester: 0.44-4.66 Blood 07/18/2021 8:33 PM EDT 07/18/2021 8:48 PM EDT Narrative Resulting Agency Comment Spec In Lab Salome Colemano HEALTH COACH CHEMISTRY ORDERABLES Performing Organization Address [facility] Co de Phone Number [facility] [place] [address] * Lipid Panel (Reflex Direct LDL) (07/18/2021 8:33 PM EDT) Cholesterol, Total 151 mg/dL [facility] Comment: Lower Risk: <200 mg/dL Average Risk: 200-239 mg/dL Higher Risk: >xw=241 mg/dL Triglyceride 162 mg/dL [facility] Comment: Average Risk/Lower Risk: <150 mg/dL Borderline High Risk: 150-199 mg/dL High Risk: 200-499 mg/dL Very High Risk: >yv=986 mg/dL HDL Cholesterol 38 mg/dL [facility] Comment: Males: ?? Higher Risk: <40 mg/dL Females: ?? Higher Risk: <50 mg/dL LDL Cholesterol 81 mg/dL [facility] Comment: Lowest Risk: <100 mg/dL Lower Risk: 100-129 mg/dL Borderline High Risk: 130-159 mg/dL High Risk: 160-189 mg/dL Very High Risk: >fg=354 mg/dL Cholesterol/HDL Ratio 4.0 ratio [facility] Lipid Interpretation See Note [facility] Comment: Lipid management should be guided by a patient? s ASCVD risk, goals and preferences. ACC/AHA Guidelines recommend high intensity statin if clinical ASCVD or LDL greater than or equal to 190 mg/dL. http://Shipwire.com/JJF-NHR-Gazxlrwvu Adults aged 40-75 with LDL 70-189 mg/dL should have their 10 year ASCVD risk estimated with the ACC/AHA ASCVD risk waterproof bag cutting machine operator http://tools.acc.org/AXYFE-Jtzk-Iwkddqokn/ Statin should be discussed if risk greater [...] In Lab Salome Rodriguez APRN CHEMISTRY ORDERABLES [facility] [place] [address] * Phosphorus (07/18/2021 8:33 PM EDT) Phosphorus 2.7 2.5 - 4.5 mg/dL [facility] Blood 07/18/2021 8:33 PM EDT 07/18/2021 8:48 PM EDT Narrative Resulting Agency Comment Spec In Lab Patricia Briggs MD CHEMISTRY ORDERABLES Performing Organization Address City/[facility]/ZIP Co de Phone Number [facility] [place] [address] * Magnesium (07/18/2021 8:33 PM EDT) Magnesium 0.84 0.69 - 1.07 mmol/L [facility] Blood 07/18/2021 8:33 PM EDT 07/18/2021 8:48 PM EDT Narrative Resulting Agency Comment Spec In Lab Patricia Briggs MD CHEMISTRY ORDERABLES Performing Organization Address [facility] Co de Phone Number [facility] [place] [address] * (ABNORMAL) Basic Metabolic Panel (non-fasting) (07/18/2021 8:33 PM EDT) Glucose 160 65 - 199 mg/dL [facility] Comment:Diabetes: >=200 mg/d L plus symptoms Blood Urea Nitrogen 9(L) 10 - 20 mg/dL [facility] Creatinine 0.62(L) 0.80 - 1.50 mg/dL [facility] Sodium 138 135 - 145 mmol/L [facility] Potassium 3.7 3.5 - 5.0 mmol/L [facility] Comment: Please note: ??Patients with WBC >100,000 may have falsely elevated Potassium levels. ??For accurate Potassium quantification in these patients send serum separator tube (gold top) for subsequent determinations. ??Contact the Clinical Chemistry Laboratory if there are any questions. Chloride 102 98 - 107 mmol/L [facility] Carbon Dioxide 22 22 - 31 mmol/L [facility] Anion Gap 14 5 - 15 mmol/L [facility] Calcium 9.0 8.5 - 10.5 mg/dL [facility] Est Glomerular Filtration Rate 98 >=60 mL/min/1. 73 m?? [facility] Comment: This patient? s estimated glomerular filtration rate (eGFR) is between 98 mL/min/1.73 m2 (patients with less muscle mass per kg body weight) and 114 mL/min/1.73 m2 (patients with more muscle mass per kg body weight) as determined by the CKD-EPI equation. Assessment of eGFR is not appropriate when creatinine concentrations are rapidly changing. For clinical decisions where creatinine clearance will affect therapy, a 24-hour urine creatinine clearance may be advised. Assignment of CKD stage 1 - 5 for patients with an eGFR near the transition point between stages may be based on clinical assessment of muscle mass and symptoms in addition to eGFR. Blood 07/18/2021 8:33 PM EDT 07/18/2021 8:48 PM EDT Narrative Resulting Agency Comment Spec In Lab Patricia Briggs MD CHEMISTRY ORDERABLES Performing Organization Address [facility]/ZIP Co de Phone Number [facility] [place] [address] * L[place]ate, [place] blood, [place] [place] [place] (07/18/2021 8:33 PM EDT) [facility] Lactate WB 1.2 0.5 - 2.2 mmol/L [facility] Blood 07/18/2021 8:33 PM EDT 07/18/2021 8:48 PM EDT Narrative Resulting Agency Comment Spec In Lab Patricia Briggs MD CHEMISTRY ORDERABLES Performing Organization Address City/[facility]/ZIP Co de Phone Number [facility] [place] [address] * EKG 12 Lead (07/18/2021 8:14 PM EDT) Ventricular rate 76 BPM MUSE SYSTEM Atrial Rate 76 BPM MUSE SYSTEM P-R Interval 168 ms MUSE SYSTEM QRS Duration 98 ms MUSE SYSTEM Q-T Interval 402 ms MUSE SYSTEM QTC Calculated (Bezet) 452 ms MUSE SYSTEM Calculated P [place] 45 degrees MUSE SYSTEM Calculated R [place] 2 degrees MUSE SYSTEM Calculated T [place] 24 degrees MUSE SYSTEM INTERPRETATION Normal sinus rhythm Normal ECG When compared with ECG of 06-OCT-2020 14:46, No significant change was found Confirmed by MD Jay Danette ([id number]) on 07/19/2021 3:51:56 PM MUSE SYSTEM 07/18/2021 8:14 PM EDT 07/19/2021 3:51 PM EDT Patricia Briggs MD ECG ORDERABLES MUSE SYSTEM documented in this encounter Visit Diagnoses Diagnosis ASCVD (arteriosclerotic cardiovascular disease) Unspecified cardiovascular disease Altered mental status, unspecified altered mental status type Stenosis of carotid artery, unspecified laterality History of cerebrovascular accident Transient ischemic attack (TIA), and cerebral infarction without residual deficits Altered mental status, unspecified altered mental status type documented in this encounter Administered Medications Inactive Administered Medications - up to 3 most recent administrations Medication Order MAR Action Action Date Dose Rate Site acetaminophen (Tylenol) tablet 650 mg 650 mg, Oral, EVERY 6 HOURS PRN, Starting on Sat07/19/21 at 1457, Until Sat07/21/21 at 1647, Pain, Fever, Administer for temperature greater than or equal to 38.2 degrees celsius, or for MILD (1-3) pain Maximum dose of acetaminophen is 4000 mg from all sources in 24 hours. When ordered for pain, acetaminophen should be given even when other ordered pain medications are indicated., Routine Given 07/19/2021 9:56 PM EDT 650 mg amLODIPine (Norvasc) tablet 10 mg 10 mg, Per NG tube, DAILY, First dose (after last modification) on Sat07/19/21 at 0900, Until Discontinued, Routine Given 07/19/2021 8:23 AM EDT 10 mg amLODIPine (Norvasc) tablet 10 mg 10 mg, Oral, DAILY, First dose (after last modification) on Sat07/20/21 at 0900, Until Discontinued, Routine Given 07/21/2021 8:20 AM EDT 10 mg Given 07/20/2021 8:29 AM EDT 10 mg aspirin chewable tablet 81 mg 81 mg, Per NG tube, DAILY, First dose on Sat07/19/21 at 0900, Until Discontinued, Routine Given 07/19/2021 8:23 AM EDT 81 mg aspirin chewable tablet 81 mg 81 mg, Oral, DAILY, First dose (after last modification) on Sat07/20/21 at 0900, Until Discontinued, Routine Given 07/21/2021 8:20 AM EDT 81 mg Given 07/20/2021 8:29 AM EDT 81 mg atorvastatin (Lipitor) tablet 80 mg 80 mg, Oral, EVERY EVENING, First dose (after last modification) on Sat07/19/21 at 1700, Until Discontinued, Routine Given 07/20/2021 4:32 PM EDT 80 mg Given 07/19/2021 4:41 PM EDT 80 mg bisacodyL (Dulcolax) suppository 10 mg 10 mg, Rectal, DAILY PRN, Starting on Sat07/18/21 at 2009, Until Sat07/21/21 at 1647, Constipation, Administer if needed per patient's routine or if no bowel movement within 48 hours to achieve: (1) One bowel movement every 48 hours, AND (2) Without straining. If multiple PRN bowel medications ordered, start with magnesium hydroxide, then bisacodyl. Multiple medications may be given concomitantly for constipation., Routine Given 07/20/2021 12:49 PM EDT 10 mg carvediloL (Coreg) tablet 25 mg 25 mg, Per NG tube, 2 TIMES DAILY WITH MEALS, First dose (after last modification) on Sat07/19/21 at 0800, Until Discontinued, Routine Given 07/19/2021 8:23 AM EDT 25 mg carvediloL (Coreg) tablet 25 mg 25 mg, Per NG tube, ONCE, 1 dose, On Sat07/19/21 at 0200, Routine Given 07/19/2021 1:24 AM EDT 25 mg carvediloL (Coreg) tablet 25 mg 25 mg, Oral, 2 TIMES DAILY WITH MEALS, First dose (after last modification) on Sat07/19/21 at 1700, Until Discontinued, Routine Given 07/21/2021 7:27 AM EDT 25 mg Given 07/20/2021 4:32 PM EDT 25 mg Given 07/20/2021 8:29 AM EDT 25 mg clopidogreL (Plavix) tablet 75 mg 75 mg, Per NG tube, DAILY, First dose (after last modification) on Sat07/19/21 at 0900, Until Discontinued, Routine Given 07/19/2021 8:23 AM EDT 75 mg clopidogreL (Plavix) tablet 75 mg 75 mg, Oral, DAILY, First dose (after last modification) on Sat07/20/21 at 0900, Until Discontinued, Routine Given 07/21/2021 8:20 AM EDT 75 mg Given 07/20/2021 8:29 AM EDT 75 mg dextrose 10% infusion 250 mL, at 1,000 mL/hr, Intravenous, EVERY 30 MIN PRN, Starting on Sat07/18/21 at 2013, Until Sat07/21/21 at 1647, For BG 50-70 mg/dL: Oral treatment preferred: [...] acid (Folvite) tablet 1,000 mcg 1,000 mcg, Per NG tube, DAILY, First dose (after last modification) on Sat07/19/21 at 0900, Until Discontinued, Routine Given 07/19/2021 8:23 AM EDT 1,000 m cg folic acid (Folvite) tablet 1,000 mcg 1,000 mcg, Oral, DAILY, First dose (after last modification) on Sat07/20/21 at 0900, Until Discontinued, Routine Given 07/21/2021 8:20 AM EDT 1,000 mcg Given 07/20/2021 8:29 AM EDT 1,000 mcg gadoterate meglumine (Dotarem) (0.5 mMol/mL) injection solution 0-100 mL 0-100 mL, Intravenous, ONCE PRN, 1 dose, Starting on Sat07/19/21 at 2146, Until Sat07/19/21 at 2130, Per Protocol, Radiology Contrast, Routine Given 07/19/2021 9:30 PM EDT 20 mLs glucagon (Glucagen) (1 mg/mL) injection solution 1 mg 1 mg, Intramuscular, EVERY 30 MIN PRN, Starting on Sat07/18/21 at 2012, Until Sat07/21/21 at 1647, Low blood sugar, For BG 50-70 mg/dL: [...] Buccal, EVERY 30 MIN PRN, Starting on Sat07/18/21 at 2012, Until Sat07/21/21 at 1647, Low blood sugar, For BG 50-70 mg/dL: [...] weight of tube = 37.5 grams.), Routine heparin (porcine) (5,000 units/1 mL) subcutaneous injection 5,000 Units 5,000 Units, Subcutaneous, EVERY 8 HOURS SCHEDULED, First dose on Sat07/18/21 at 2200, Until Discontinued, Routine Given 07/21/2021 6:06 AM EDT 5,000 Unit s Given 07/20/2021 9:10 PM EDT 5,000 Units Given 07/20/2021 2:03 PM EDT 5,000 Units hydrALAZINE (Apresoline) (20 mg/mL) injection 10 mg 10 mg, Intravenous, EVERY 1 HOUR PRN, Starting on Sat07/19/21 at 1456, Until Sat07/21/21 at 1647, High Blood Pressure, for SBP > 140 Given 07/21/2021 8:17 AM EDT 10 mg Given 07/20/2021 7:47 PM EDT 10 mg Given 07/20/2021 3:07 PM EDT 10 mg insulin lispro (HumaLOG;Admelog) (100 unit/mL) subcutaneous injection vial 2-12 Units 2-12 Units, Subcutaneous, EVERY 4 HOURS SCHEDULED, First dose on Sat07/18/21 at 2100, Until Discontinued, CORRECTION BOLUS [2-12 Units] Resistant Sliding Scale (BG in mg/dL) Correction Factor 10 (1 unit of insulin is expected to drop the glucose 10 mg/dL) BG 140 - 160 Give 2 units BG 161 - 180 Give 4 units BG 181 - 200 Give 6 units BG 201 - 220 Give 8 units BG 221 - 240 Give 10 units BG greater than 240, give 12 units and recheck BG in 2 hours. - If recheck BG is LESS than 240, give no insulin and resume schedule. - If recheck BG is GREATER than 240, give 12 units and repeat BG in 2 hours (no more than 3 times) & call for new insulin orders. DO NOT hold if NPO, unless specifically directed to do so by written order. Per Blood Glucose Monitoring Policy, re-check a BG of > 240 mg/dL in 2 hours, Routine Given 07/21/2021 11:58 AM EDT 4 Units Given 07/21/2021 8:17 AM EDT 2 Units Given 07/21/2021 4:06 AM EDT 4 Units isosorbide mononitrate CR (Imdur) tablet 30 mg 30 mg, Oral, NIGHTLY, First dose on Sat07/20/21 at 2100, Until Discontinued, DO NOT CRUSH OR OPEN, Routine Given 07/20/2021 9:13 PM EDT 30 mg lisinopriL (Zestril) tablet 20 mg 20 mg, Per NG tube, DAILY, First dose (after last modification) on Sat07/19/21 at 0900, Until Discontinued, Routine Given 07/19/2021 8:23 AM EDT 20 mg lisinopriL (Zestril) tablet 20 mg 20 mg, Oral, DAILY, First dose (after last modification) on Sat07/20/21 at 0900, Until Discontinued, Routine Given 07/20/2021 8:29 AM EDT 20 mg lisinopriL (Zestril) tablet 20 mg 20 mg, Oral, DAILY, First dose (after last modification) on Sat07/21/21 at 0900, Until Discontinued, Routine Given 07/21/2021 8:20 AM EDT 20 mg lisinopriL (Zestril) tablet 20 mg 20 mg, Oral, ONCE, 1 dose, On Sat07/21/21 at 1000, Routine Given 07/21/2021 9:58 AM EDT 20 mg lisinopriL (Zestril) tablet 40 mg 40 mg, Oral, DAILY, First dose (after last modification) on Sat07/22/21 at 0900, Until Discontinued, Routine LORazepam (Ativan) (2 mg/mL) injection 1-3 mg 1-3 mg, Intravenous, EVERY 4 HOURS PRN, Starting on Sat07/18/21 at 2009, Until Sat07/19/21 at 1416, alcohol/benzodiazepine withdrawal- uncomplicated, When given intravenously, the rate of administration should not exceed 2 mg/minute with ermergency equipment available. Per assessment scale for uncomplicated withdrawal from alcohol. May give IV if unable to take PO. May give IM if no IV access. Medication should be administered at least every 4 hours: For withdrawal score of 5-7, give 1 mg PO or IV or IM: administer every 4 hours. For withdrawal score of 8-10, give 2 mg PO or IV or IM: administer every 4 hours. For withdrawal score of 11 or greater, give 3 mg PO or IV or IM: administer every 4 hours. + If withdrawal score remains 11 or greater for two consecutive assessment periods, call provider. + If patient has had seizures in previous 8 hours and has gone 4 hours without medications, give 3 mg PO or IV or IM., Routine Given 07/18/2021 8:19 PM EDT 2 mg magnesium sulfate 2 g in sterile water 50 mL infusion 2 g, Intravenous, ONCE, 1 dose, On Sat07/18/21 at 2245, Administer over 120 Minutes New Bag 07/18/2021 10:01 PM EDT 2 g 25 mL/hr multivitamin with minerals (Thera M) tablet 1 tablet 1 tablet, Per NG tube, DAILY, First dose (after last modification) on Sat07/19/21 at 0900, Until Discontinued, Routine Given 07/21/2021 8:20 AM EDT 1 tablet Given 07/20/2021 8:29 AM EDT 1 tablet Given 07/19/2021 8:23 AM EDT 1 tablet niCARdipine (Cardene) (0.2 mg/mL) in sodium chloride 200 mL infusion 0-15 mg/hr (0-75 mL/hr), Intravenous, CONTINUOUS, Starting on Sat07/18/21 at 2100, Until Sat07/19/21 at 1528, Titrate to SBP greater than 90 and less than 140 mmHg. Start at 5 mg/hour, titrate to maintain target SBP, adjust infusion rate by 2.5 mg/hour every 5 minutes to a maximum of 15 mg/hour. Rotate IV site every 12 hours, Routine New Bag 07/19/2021 10:44 AM EDT 7.5 mg/hr 37.5 mL/hr Rate/Dose Change 07/19/2021 10:15 AM EDT 10 mg/hr 50 mL/ hr Rate/Dose Change 07/19/2021 8:55 AM EDT 12.5 mg/hr 62.5 mL /hr senna (Senokot) tablet 25.8 mg 25.8 mg, Oral, ONCE, 1 dose, On [facility] 07/20/21 at 1030, Routine Given 07/20/2021 11:22 AM EDT 25.8 mg senna-docusate (Pericolace) 8.6-50 mg per tablet 2 tablet 2 tablet, Per NG tube, 2 TIMES DAILY, First dose (after last modification) on Sat07/19/21 at 0900, Until Discontinued, Routine Given 07/19/2021 8:23 AM EDT 2 tablets senna-docusate (Pericolace) 8.6-50 mg per tablet 2 tablet 2 tablet, Oral, 2 TIMES DAILY, First dose (after last modification) on Sat07/19/21 at 2100, Until Discontinued, Routine Given 07/20/2021 9:14 PM EDT 2 table ts Given 07/20/2021 8:28 AM EDT 2 tablets Given 07/19/2021 9:57 PM EDT 2 tablets sodium chloride 0.9% 250 mL IV bolus Intravenous, ONCE, 1 dose, On Sat07/19/21 at 0245 [facility] 07/19/2021 2:10 AM EDT sodium chloride 0.9% infusion 75 mL/hr, Intravenous, CONTINUOUS, Starting on Sat07/19/21 at 0245, Until Sat07/19/21 at 0946 [facility] 07/19/2021 2:10 AM EDT 75 mL/hr 75 mL/hr thiamine (B-1) 500 mg in sodium chloride 0.9% 55 mL 500 mg, Intravenous, 3 TIMES DAILY, 6 doses, First dose on Sat07/19/21 at 1530, Last dose on Sat07/21/21 at 0900, Administer over 30 Minutes, Doses of 100 mg are to be administered as IV push over 5 minutes. Doses of 200 mg or more should be mixed in 50 mL 0.9% Sodium Chloride and infused over 30 minutes. New Bag 07/21/2021 8:23 AM EDT 500 mg 110 mL/hr New Bag 07/20/2021 9:12 PM EDT 500 mg 110 mL/hr New Bag 07/20/2021 2:04 PM EDT 500 mg 110 mL/hr thiamine (Vitamin B1) tablet 100 mg 100 mg, Per NG tube, DAILY, First dose (after last modification) on Sat07/19/21 at 0900, Until Discontinued, Routine Given 07/19/2021 8:23 AM EDT 100 mg documented in this encounter Active and Recently Administered Medications Times are shown in EDT. Scheduled Medication Order 07/19/2021 07/20/2021 07/21/2021 amLODIPine (Norvasc) tablet 10 mg (CANCELED) 10 mg, Per NG tube, DAILY, First dose (after last modification) on Sat07/19/21 at 0900, Until Discontinued, Routine 08 (Given - Provider: Lashonda Chin RN) amLODIPine (Norvasc) tablet 10 mg 10 mg, Oral, DAILY, First dose (after last modification) on Ammy 07/20/21 at 0900, Until Discontinued, Routine 0829 (Given - Provider: Tonja Coe RN) 0820 (Given - Provider: Marixa Richey RN) aspirin chewable tablet 81 mg (CANCELED) 81 mg, Per NG tube, DAILY, First dose on Sat07/19/21 at 0900, Until Discontinued, Routine 0823 (Given - Provider: Lashonda Chin RN) aspirin chewable tablet 81 mg 81 mg, Oral, DAILY, First dose (after last modification) on Ammy 07/20/21 at 0900, Until Discontinued, Routine 0829 (Given - Provider: Tonja Coe RN) 0820 (Given - Provider: Marixa Richey RN) atorvastatin (Lipitor) tablet 80 mg 80 mg, Oral, EVERY EVENING, First dose (after last modification) on Sat07/19/21 at 1700, Until Discontinued, Routine 1641 (Given - Provider: Jackie Nye RN) 1632 (Given - Provider: Tonja Coe RN) carvediloL (Coreg) tablet 25 mg (CANCELED) 25 mg, Per NG tube, 2 TIMES DAILY WITH MEALS, First dose (after last modification) on Sat07/19/21 at 0800, Until Discontinued, Routine 0823 (Given - Provider: Lashonda Chin RN) carvediloL (Coreg) tablet 25 mg (COMPLETED) 25 mg, Per NG tube, ONCE, 1 dose, On Sat07/19/21 at 0200, Routine 0124 (Given - Provider: Gypsy Peters) carvediloL (Coreg) tablet 25 mg 25 mg, Oral, 2 TIMES DAILY WITH MEALS, First dose (after last modification) on Sat07/19/21 at 1700, Until Discontinued, Routine 1641 (Given - Provider: Jackie Nye RN) 0829 (Given - Provider: Tonja Coe RN)1632 (Given - Provider: Tonja Coe RN) 0727 (Given - Provider: Marixa Richey RN) clopidogreL (Plavix) tablet 75 mg (CANCELED) 75 mg, Per NG tube, DAILY, First dose (after last modification) on Sat07/19/21 at 0900, Until Discontinued, Routine 0823 (Given - Provider: Lashonda Chin RN) clopidogreL (Plavix) tablet 75 mg 75 mg, Oral, DAILY, First dose (after last modification) on Sat07/20/21 at 0900, Until Discontinued, Routine 0829 (Given - Provider: Tonja Coe RN) 0820 (Given - Provider: Marixa Richey RN) folic acid (Folvite) tablet 1,000 mcg (CANCELED) 1,000 mcg, Per NG tube, DAILY, First dose (after last modification) on Sat07/19/21 at 0900, Until Discontinued, Routine 0823 (Given - Provider: Lashonda Chin RN) folic acid (Folvite) tablet 1,000 mcg 1,000 mcg, Oral, DAILY, First dose (after last modification) on Sat07/20/21 at 0900, Until Discontinued, Routine 0829 (Given - Provider: Tonja Coe RN) 0820 (Given - Provider: Marixa Richey RN) heparin (porcine) (5,000 units/1 mL) subcutaneous injection 5,000 Units 5,000 Units, Subcutaneous, EVERY 8 HOURS SCHEDULED, First dose on Sat07/18/21 at 2200, Until Discontinued, Routine 0559 (Given - Provider: Gypsy Peters)1515 (Given - Provider: Lashonda Chin RN)2157 (Given - Provider: Trinh Jacobson, AYE) 0533 (Given - Provider: Trinh Jacobson, RN)1403 (Given - Provider: Tonja Coe, AYE)2110 (Given - Provider: Abbi Kemp, AYE) 0606 (Given - Provider: Abbi Kemp, AYE)1400 (Due) insulin lispro (HumaLOG;Admelog) (100 unit/mL) subcutaneous injection vial 2-12 Units(Linked Group 1) 2-12 Units, Subcutaneous, EVERY 4 HOURS SCHEDULED, First dose on Sat07/18/21 at 2100, Until Discontinued, CORRECTION BOLUS [2-12 Units] Resistant Sliding Scale (BG in mg/dL) Correction Factor 10 (1 unit of insulin is expected to drop the glucose 10 mg/dL) BG 140 - 160 Give 2 units BG 161 - 180 Give 4 units BG 181 - 200 Give 6 units BG 201 - 220 Give 8 units BG 221 - 240 Give 10 units BG greater than 240, give 12 units and recheck BG in 2 hours. - If recheck BG is LESS than 240, give no insulin and resume schedule. - If recheck BG is GREATER than 240, give 12 units and repeat BG in 2 hours (no more than 3 times) & call for new insulin orders. DO NOT hold if NPO, unless specifically directed to do so by written order. Per Blood Glucose Monitoring Policy, re-check a BG of > 240 mg/dL in 2 hours, Routine 0404 (Given - Provider: Gypsy Peters)0800 (Not Given - Provider: Lashonda Chin RN - Reason: Order parameters not met)1154 (Given - Provider: Lashonda Chin RN)1604 (Given - Provider: Lashonda Chin, AYE)1947 (Given - Provider: Trinh Jacobson, AYE) 0021 (Given - Provider: Trinh Jacboson, AYE)0300 (Given - Provider: Trinh Jacobson, AYE)0829 (Given - Provider: Tonja Coe, AYE)1217 (Given - Provider: Tonja Coe, AYE)1700 (Given - Provider: Tonja Coe, AYE)1953 (Given - Provider: Abbi Kemp, AYE) 0015 (Given - Provider: Abbi Kemp RN)0406 (Given - Provider: Abbi Kemp, AYE)0817 (Given - Provider: Marixa Garcia V, AYE)1158 (Given - Provider: Marixa Garcia V, RN) isosorbide mononitrate CR (Imdur) tablet 30 mg 30 mg, Oral, NIGHTLY, First dose on Ammy 07/20/21 at 2100, Until Discontinued, DO NOT CRUSH OR OPEN, Routine 2112 (Given - Provider: Abbi Kemp RN) lisinopriL (Zestril) tablet 20 mg (CANCELED) 20 mg, Per NG tube, DAILY, First dose (after last modification) on Sat07/19/21 at 0900, Until Discontinued, Routine 08 (Given - Provider: Lashonda Chin RN) lisinopriL (Zestril) tablet 20 mg (CANCELED) 20 mg, Oral, DAILY, First dose (after last modification) on Sat07/20/21 at 0900, Until Discontinued, Routine 08 (Given - Provider: Tonja Coe, AYE) lisinopriL (Zestril) tablet 20 mg (CANCELED) 20 mg, Oral, DAILY, First dose (after last modification) on Sat07/21/21 at 0900, Until Discontinued, Routine 08 (Given - Provider: Mairxa Richey RN) lisinopriL (Zestril) tablet 20 mg (COMPLETED) 20 mg, Oral, ONCE, 1 dose, On Sat07/21/21 at 1000, Routine 0958 (Given - Provider: Marixa Richey RN) lisinopriL (Zestril) tablet 40 mg 40 mg, Oral, DAILY, First dose (after last modification) on Sat07/22/21 at 0900, Until Discontinued, Routine multivitamin with minerals (Thera M) tablet 1 tablet 1 tablet, Per NG tube, DAILY, First dose (after last modification) on Sat07/19/21 at 0900, Until Discontinued, Routine 0823 (Given - Provider: Lashonda Chin RN) 0829 (Given - Provider: Tonja Coe, AYE) 0820 (Given - Provider: Marixa Richey RN) senna (Senokot) tablet 25.8 mg (COMPLETED) 25.8 mg, Oral, ONCE, 1 dose, On Ammy 07/20/21 at 1030, Routine 1122 (Given - Provider: Tonja Coe RN) senna-docusate (Pericolace) 8.6-50 mg per tablet 2 tablet (CANCELED) 2 tablet, Per NG tube, 2 TIMES DAILY, First dose (after last modification) on Sat07/19/21 at 0900, Until Discontinued, Routine 0823 (Given - Provider: Lashonda Chin RN) senna-docusate (Pericolace) 8.6-50 mg per tablet 2 tablet 2 tablet, Oral, 2 TIMES DAILY, First dose (after last modification) on Sat07/19/21 at 2100, Until Discontinued, Routine 215 (Given - Provider: Trinh Jacobson RN) 0828 (Given - Provider: Tonja Coe RN)2114 (Given - Provider: Abbi Kemp RN) 0900 (Not Given - Provider: Marixa Richey RN - Reason: Contraindicated) sodium chloride 0.9% 250 mL IV bolus (COMPLETED) Intravenous, ONCE, 1 dose, On Sat07/19/21 at 0245 0210 (New Bag - Provider: Gypsy Peters) thiamine (B-1) 500 mg in sodium chloride 0.9% 55 mL (COMPLETED) 500 mg, Intravenous, 3 TIMES DAILY, 6 doses, First dose on Sat07/19/21 at 1530, Last dose on Sat07/21/21 at 0900, Administer over 30 Minutes, Doses of 100 mg are to be administered as IV push over 5 minutes. Doses of 200 mg or more should be mixed in 50 mL 0.9% Sodium Chloride and infused over 30 minutes. 1552 (New Bag - Provider: Lashonda Chin RN)1622 (Stopped - Provider: Lashonda Chin RN)2157 (New Bag - Provider: Trinh Jacobson RN)2227 (Stopped - Provider: Trinh Jacobson RN) 0830 (New Bag - Provider: Tonja Coe RN)0900 (Stopped - Provider: Tonja Coe RN)1404 (New Bag - Provider: Tonja M Saravanan, RN)1434 (Stopped - Provider: Tonja Coe, RN)2112 (New Bag - Provider: Abbi Kemp, RN)2142 (Stopped - Provider: Abbi Kemp RN) 0823 (New Bag - Provider: Marixa Garcia V, RN)0853 (Stopped - Provider: Marixa Garcia V, RN) thiamine (Vitamin B1) tablet 100 mg (CANCELED) 100 mg, Per NG tube, DAILY, First dose (after last modification) on Sat07/19/21 at 0900, Until Discontinued, Routine 0823 (Given - Provider: Lashonda Chin, RN) Continuous Medication Order 07/19/2021 07/20/2021 07/21/2021 niCARdipine (Cardene) (0.2 mg/mL) in sodium chloride 200 mL infusion (CANCELED) 0-15 mg/hr (0-75 mL/hr), Intravenous, CONTINUOUS, Starting on Sat07/18/21 at 2100, Until Sat07/19/21 at 1528, Titrate to SBP greater than 90 and less than 140 mmHg. Start at 5 mg/hour, titrate to maintain target SBP, adjust infusion rate by 2.5 mg/hour every 5 minutes to a maximum of 15 mg/hour. Rotate IV site every 12 hours, Routine 0000 (Rate/Dose Change - Provider: Gypsy Peters)0115 (Rate/Dose Change - Provider: Gypsy Peters)0200 (Rate/Dose Change - Provider: Gypsy Peters)0403 (New Bag - Provider: Gypsy Peters)0600 (Rate/Dose Change - Provider: Gypsy Peters)0644 (New Bag - Provider: Gypsy Peters)0831 (Rate/Dose Change - Provider: Lashonda Chin RN)0855 (Rate/Dose Change - Provider: Lashonda Chin RN)1015 (Rate/Dose Change - Provider: Lashonda Chin RN)1044 (New Bag - Provider: Lashonda Chin RN)1315 (Stopped - Provider: Lamont Haley RN) sodium chloride 0.9% infusion (CANCELED) 75 mL/hr, Intravenous, CONTINUOUS, Starting on Sat07/19/21 at 0245, Until Sat07/19/21 at 0946 0210 (New Bag - Provider: Gypsy Peters)0946 (Stopped - Provider: Lashonda Chin, RN) PRN Medication Order 07/19/2021 07/20/2021 07/21/2021 acetaminophen (Tylenol) tablet 650 mg 650 mg, Oral, EVERY 6 HOURS PRN, Starting on Sat07/19/21 at 1457, Until Sat07/21/21 at 1647, Pain, Fever, Administer for temperature greater than or equal to 38.2 degrees celsius, or for MILD (1-3) pain Maximum dose of acetaminophen is 4000 mg from all sources in 24 hours. When ordered for pain, acetaminophen should be given even when other ordered pain medications are indicated., Routine 2156 (Given - Provider: Trinh Jacobson, RN) bisacodyL (Dulcolax) suppository 10 mg 10 mg, Rectal, DAILY PRN, Starting on Sat07/18/21 at 2008, Until Sat07/21/21 at 1647, Constipation, Administer if needed per patient's routine or if no bowel movement within 48 hours to achieve: (1) One bowel movement every 48 hours, AND (2) Without straining. If multiple PRN bowel medications ordered, start with magnesium hydroxide, then bisacodyl. Multiple medications may be given concomitantly for constipation., Routine 1249 (Given - Provider: Tonja Coe, AYE) dextrose 10% infusion(Linked Group 2) 250 mL, at 1,000 mL/hr, Intravenous, EVERY 30 MIN PRN, Starting on Sat07/18/21 at 2012, Until Sat07/21/21 at 1647, For BG 50-70 mg/dL: Oral treatment preferred: [...] for the duration of the active insulin. gadoterate meglumine (Dotarem) (0.5 mMol/mL) injection solution 0-100 mL (COMPLETED) 0-100 mL, Intravenous, ONCE PRN, 1 dose, Starting on Sat07/19/21 at 2146, Until Sat07/19/21 at 2130, Per Protocol, Radiology Contrast, Routine 2129 (Given - Provider: Laina Suero) glucagon (Glucagen) (1 mg/mL) injection solution 1 mg(Linked Group 2) 1 mg, Intramuscular, EVERY 30 MIN PRN, Starting on Sat07/18/21 at 2012, Until Sat07/21/21 at 1647, Low blood sugar, For BG 50-70 mg/dL: [...] Routine glucose (Glutose) 40% oral geL(Linked Group 2) 15-30 g of glucose, Buccal, EVERY 30 MIN PRN, Starting on Sat07/18/21 at 2012, Until Sat07/21/21 at 1647, Low blood sugar, For BG 50-70 mg/dL: [...] grams.), Routine hydrALAZINE (Apresoline) (20 mg/mL) injection 10 mg 10 mg, Intravenous, EVERY 1 HOUR PRN, Starting on Sat07/19/21 at 1456, Until Sat07/21/21 at 1647, High Blood Pressure, for SBP > 140 1712 (Given - Provider: Lashonda Chin RN) 1007 (Given - Provider: Tonja Coe, AYE)1209 (Given - Provider: Tonja Coe, AYE)1507 (Given - Provider: Tonja Coe, AYE)1947 (Given - Provider: Abbi Kemp, AYE) 0817 (Given - Provider: Marixa Garcia V RN) Linked Groups Order Group 1: POCT Fingerstick Glucose (CANCELED) Routine, EVERY 4 HOURS, First occurrence on Sat07/18/21 at 2014, Until Specified, Consider choosing EVERY 4 HOURS as frequency for: - Type 1 Diabetes - At least 24 hours after coming off an insulin drip - At least 24 hours after admission for DKA - Hypoglycemia unawareness - Patients who are otherwise unstable Select the same frequency for the correction bolus insulin order And insulin lispro (HumaLOG;Admelog) (100 unit/mL) subcutaneous injection vial 2-12 UnitsJump to med 2-12 Units, Subcutaneous, EVERY 4 HOURS SCHEDULED, First dose on Sat07/18/21 at 2100, Until Discontinued, CORRECTION BOLUS [2-12 Units] Resistant Sliding Scale (BG in mg/dL) Correction Factor 10 (1 unit of insulin is expected to drop the glucose 10 mg/dL) BG 140 - 160 Give 2 units BG 161 - 180 Give 4 units BG 181 - 200 Give 6 units BG 201 - 220 Give 8 units BG 221 - 240 Give 10 units BG greater than 240, give 12 units and recheck BG in 2 hours. - If recheck BG is LESS than 240, give no insulin and resume schedule. - If recheck BG is GREATER than 240, give 12 units and repeat BG in 2 hours (no more than 3 times) & call for new insulin orders. DO NOT hold if NPO, unless specifically directed to do so by written order. Per Blood Glucose Monitoring Policy, re-check a BG of > 240 mg/dL in 2 hours, Routine Group 2: glucose (Glutose) 40% oral geLJump to med 15-30 g of glucose, Buccal, EVERY 30 MIN PRN, Starting on Sat07/18/21 at 2013, Until Sat07/21/21 at 1647, Low blood sugar, For BG 50-70 mg/dL: [...] Intravenous, EVERY 30 MIN PRN, Starting on Sat07/18/21 at 2012, Until Sat07/21/21 at 1647, For BG 50-70 mg/dL: Oral treatment preferred: [...] Intramuscular, EVERY 30 MIN PRN, Starting on Sat07/18/21 at 2012, Until Sat07/21/21 at 1647, Low blood sugar, For BG 50-70 mg/dL: [...] the duration of the active insulin., Routine documented in this encounter Care Teams Worker'S Compensation Claims Examiner Relationship Specialty Start Date End Date Alo Carey DO [address] [place] [address] [place] [phone] PCP - General Internal Medicine 08/31/20 07/03/23 documented as of this encounter
--- OUTSIDE RECORDS SUMMARY | 2023-10-06 00:41 | XMS_ITS | Encounter Summary ---
[place] [address] Care Team Providers Care Loss Prevention Guard Name Role Phone CherryAlo Lon RUTHERFORD Primary Care Provider [phone] Reason for Visit * Auth/Cert Specialty Diagnoses [...] Expiration Date Visits Re quested Visits Authorized [id number] 1 Encounter Details Date Type Department Care Team (Latest Contact Info) Description 07/14/2021 8:30 AM EDT - 07/14/2021 11:59 PM EDT Hospital En[place] [address] Discharge Disposition: Home Social History Tobacco Use [...] Sig Dispensed Refills Start Date End Date atorvastatin (Lipitor) 80 mg Tablet Take 1 tablet by mouth every evening. 90 tablet 3 07/17/2021 aspirin EC 81 mg Tablet, Delayed Release (E.C.) Take 81 mg by mouth daily. acetaminophen (Tylenol) 500 mg Tablet Take 2 tablets by mouth every 6 hours. 30 tablet 1 07/17/2021 09/21/2021 lisinopriL (Zestril) 20 mg Tablet Take 1 tablet by mouth daily. 90 tablet 3 07/17/2021 07/21/2021 levoFLOXacin (LEVAQUIN) 500 mg TabletIndications:Maggie cordero neoplasm of prostate Take 1 hour prior to procedure 1 tablet 06/28/2021 07/17/2021 carvediloL (Coreg) 25 mg Tablet Take 25 mg by mouth 2 times daily (with meals). 12/08/2020 11/18/2021 glimepiride (Amaryl) 1 mg Tablet Take 1 mg by mouth daily. 11/20/2020 10/12/2022 atorvastatin (Lipitor) 40 mg Tablet Daily. 07/17/2021 clopidogreL (Plavix) 75 mg Tablet daily. 08/17/2021 metFORMIN (FORTAMET) 500 mg Tablet Extended Rel 24 hr Take 1,000 mg by mouth 2 times daily (with meals). 06/07/2023 amLODIPine (Norvasc) 10 mg Tablet Take 5 mg by mouth daily. 11/18/2021 fish oil-omega-3 fatty acids 1,000 mg Capsule Take 1 g by mouth daily. 11/18/2021 documented as of this encounter Plan of Treatment Upcoming Encounters Date Type Department Care Team (Late st Contact Info) Description 10/11/2023 10:00 AM EDT Tech [place] [address] Giacomo Queen 10/11/2023 11:15 AM EDT Office [place] [phone] Basim Barr MD [facility] [place] [address] 10/18/2023 9:00 AM EDT Office Visit Hematology/Oncology at [address] [phone] Cl Hess MD [facility] [place] [address] Yessi Renee [address] HEMATOLOGY AND ONCOLOGY [place], [place] [phone] 10/18/2023 9:30 AM EDT Infusion Hematology Oncology at [address] [phone] 10/24/2023 9:30 AM EDT Scheduled View Only Radiation Oncology at [address] [phone] St La Nena Champagne 10/24/2023 10:00 AM EDT Office Visit Radiation Oncology at [address] [phone] Bigg Peters MD [address] [place] [address] DR RADIATION ONCOLOGY [place], [place] [address] [phone] 11/01/2023 9:00 AM EDT Office Visit Hematology/Oncology at [address] [phone] Cl Hess MD [facility] [place] [address] Yessi Renee, [address] HEMATOLOGY AND ONCOLOGY [place], [place] [id number] 11/01/2023 9:30 AM EDT Infusion Hematology Oncology at [address] [phone] 12/24/2023 1:00 PM EDT TH Visit (TeleHealth) Radiation Oncology at [address] [phone] Ping Moore PA [facility] HEMATOLOGY [place] [address] documented as of this encounter Visit Diagnoses Not on filedocumented in this encounter Care Teams Loss Prevention Guard Relationship Specialty Start Date End Date Alo Carey DO [address] [place] [address] [place] [phone] PCP - General Internal Medicine 08/31/20 07/03/23 documented as of this encounter
--- OUTSIDE RECORDS SUMMARY | 2023-10-06 00:41 | XMS_ITS | Encounter Summary ---
Author Organization [facility] Address [facility] [place] [address] Care Team Providers Care Family Resource Management Specialist Name Role Phone Alo Carey DO Primary Care Provider [phone] Encounter Details Date Type Department Care Team (Late st Contact Info) Description 07/18/2021 Tele[place] [phone] Milton Saldana MD [facility] [place] [address] Social History Tobacco Use Types Packs/Day Years [...] encounter Miscellaneous Notes * Telephone Encounter - Milton Saldana MD - 07/18/2021 7:42 AM EDT Mr Sadler is a 71M with history of HTN. 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 He is s/p R TCAR on 07/14/[address] Barr. He was discharged home on 07/17/21. The patient's brother called this morning stating that his brother woke him up after falling out of bed this morning around 4:30am. Mr Sadler (the patient) is also described as being quite confused and has been having visual hallucinations all morning. I recommended that Mr Sadler be seen in an emergency department for evaluation of his altered mental status. While I offered to see him here at [facility], thepatient's brother stated that they are only a [address] from [facility] (and over 100 miles from [facility] so will proceed there first. Milton Saldana MD Vascular Surgery Resident documented in this encounter Plan of Treatment Upcoming Encounters Date Type Department Care Team (Late st Contact Info) Description 10/11/2023 10:00 AM EDT Tech Visit [place] [address] Giacomo Queen 10/11/2023 11:15 AM EDT Office Visit [place] [address] Basim Barr MD [facility] [place] [address] 10/18/2023 9:00 AM EDT Office Visit Hematology/Oncology at [address] [phone] Cl Hess MD [facility] [place] [address] Yessi Renee APRN [address] [place] [address] DR HEMATOLOGY AND ONCOLOGY [place], [place] [phone] 10/18/2023 9:30 AM EDT Infusion Hematology Oncology at [address] [phone] 10/24/2023 9:30 AM EDT Scheduled View Only Radiation Oncology at [address] [phone] Rad Nurse, [place] 10/24/2023 10:00 AM EDT Office Visit Radiation Oncology at [address] [address] Bigg Peters MD [address] [place] [address] DR RADIATION ONCOLOGY [place], [place] [id number] 11/01/2023 9:00 AM EDT Office Visit Hematology/Oncology at [address] [phone] Cl Hess MD [facility] [place] [address] Yessi Renee APRN [address] [place] [address] DR HEMATOLOGY AND ONCOLOGY [place], [place] [id number] 11/01/2023 9:30 AM EDT Infusion Hematology Oncology at [address] [phone] 12/24/2023 1:00 PM EDT TH Visit (TeleHealth) Radiation Oncology at [address] [phone] Ping Moore PA [facility] DR [place] [address] documented as of this encounter Visit Diagnoses Not on filedocumented in this encounter Care Teams Family Resource Management Specialist Relationship Specialty Start Date End Date Alo Carey DO [address] [place] [address] [place] [phone] PCP - General Internal Medicine 08/31/20 07/03/23 documented as of this encounter
--- OUTSIDE RECORDS SUMMARY | 2023-10-06 00:41 | XMS_ITS | Encounter Summary ---
Author Organization [facility] [place] [address] Care Team Providers Care Refrigerator Glazier Name Role Phone Alo Carey DO Primary Care Provider [phone] Encounter Details Date Type Department Care Team (Late st Contact Info) Description 07/14/2021 10:45 AM EDT Ancillary Procedure [place] [phone] Social History Tobacco Use Types Packs/Day Years [...] EDT Tech Visit [place] [address] Giacomo Queen 10/11/2023 11:15 AM EDT Office [place] [phone] Basim Barr MD [facility] [place] [address] 10/18/2023 9:00 AM EDT Office Visit Hematology/Oncology at [address] [phone] Cl Hess MD [facility] [place] [address] Yessi Renee [address] HEMATOLOGY AND ONCOLOGY [place], [place] [id number] 10/18/2023 9:30 AM EDT Infusion Hematology Oncology at [address] [phone] 10/24/2023 9:30 AM EDT Scheduled View Only Radiation Oncology at [address] [phone] [place] 10/24/2023 10:00 AM EDT Office Visit Radiation Oncology at [address] [phone] Bigg Peters MD [address] [place] [address] DR RADIATION ONCOLOGY [place], [place] [id number] 11/01/2023 9:00 AM EDT Office Visit Hematology/Oncology at [address] [phone] Cl Hess MD [facility] [place] [place] [address] Yessi Renee, [address] HEMATOLOGY AND ONCOLOGY [place], [place] [phone] 11/01/2023 9:30 AM EDT Infusion Hematology Oncology at [address] [phone] 12/24/2023 1:00 PM EDT TH Visit (TeleHealth) Radiation Oncology at [address] [phone] Ping Moore PA [facility] DR [place] [address] documented as of this encounter Procedures Procedure Name Priority Date/Time Associated Diagnosis Comments IR OR VASC ANGIOGRAM IMAGE STORAGE ONLY Routine 07/14/2021 10:41 AM EDT documented in this encounter Results * IR OR VASC Aniogram Image Storage Only (07/14/2021 10:41 AM EDT) Narrative RAD - 07/14/2021 10:41 AM EDT This exam is auto-finalizing. It's purpose is for storage only. Basim Barr MD IM FILM LIBRARY ORD ERABLES [place], [place] documented in this encounter Visit Diagnoses Not on filedocumented in this encounter Care Teams Refrigerator Glazier Relationship Specialty Start Date End Date Alo Carey DO [address] [place] [address] LEVAR Delarosa [phone] PCP - General Internal Medicine 08/31/20 07/03/23 documented as of this encounter
--- OUTSIDE RECORDS SUMMARY | 2023-10-06 00:41 | XMS_ITS | Encounter Summary ---
Author Organization [facility] [place] [address] Care Team Providers Care Tip Banding Machine Operator Name Role Phone Alo Carey DO Primary Care Provider [phone] Encounter Details Date Type Department Care Team (Late st Contact Info) Description 07/18/2021 12:10 PM EDT Ancillary Procedure [place] [phone] Alo Carey DO [address] [place] [address] [place] [phone] Social History Tobacco Use Types Packs/Day Years [...] AM EDT Tech [place] [phone] Giacomo Queen 10/11/2023 11:15 AM EDT Office Visit [place] [address] Basim Barr MD [facility] [place] [address] 10/18/2023 9:00 AM EDT Office Visit Hematology/Oncology at [address] [phone] 31 Cl Hess MD [facility] [place] [address] Yessi Renee [address] HEMATOLOGY AND ONCOLOGY [place], [place] [address] [phone] 10/18/2023 9:30 AM EDT Infusion Hematology Oncology at [address] [phone] 10/24/2023 9:30 AM EDT Scheduled View Only Radiation Oncology at [address] [phone] Rad Nurse, [facility] 10/24/2023 10:00 AM EDT Office Visit Radiation Oncology at [address] [phone] Bigg Peters MD [address] [place] [address] [place] [address] 11/01/2023 9:00 AM EDT Office Visit Hematology/Oncology at [address] [phone] Cl Hess MD [facility] [place] [address] Yessi Renee [address] HEMATOLOGY AND ONCOLOGY [place], [place] [address] [phone] 11/01/2023 9:30 AM EDT Infusion Hematology Oncology at [address] [address] 12/24/2023 1:00 PM EDT TH Visit (TeleHealth) Radiation Oncology at [address] [address] Ping Moore PA [facility] [place] [address] documented as of this encounter Procedures Procedure Name Priority Date/Time Associated Diagnosis Comments FILM LIBRARY STORAGE ONLY CT HEAD Routine 07/18/2021 11:58 AM EDT documented in this encounter Results * Film Library- Storage Only CT Head (07/18/2021 11:58 AM EDT) Narrative [facility] - 07/18/2021 11:58 AM EDT This exam is auto-finalizing. It's purpose is for storage only. Alo Carey DO [facility] FILM LIBRARY ORD ERABLES Performing Organization Address City/State/[facility] Co de Phone Number [place], [place] documented in this encounter Visit Diagnoses Not on filedocumented in this encounter Care Teams Tip Banding Machine Operator Relationship Specialty Start Date End Date Alo Carey DO [address] [place] [address] [place] [address] PCP - General Internal Medicine 08/31/20 07/03/23 documented as of this encounter
--- OUTSIDE RECORDS SUMMARY | 2023-10-06 00:41 | XMS_ITS | Encounter Summary ---
Author Organization [facility] [place] [address] Care Team Providers Care Student Teaching Coordinator Name Role Phone Alo Carey DO Primary Care Provider [phone] Encounter Details Date Type Department Care Team (Late st Contact Info) Description 07/12/2021 Orders [place] [phone] Rocío Manuel, RN *Screening for COVID-19 virus Social History Tobacco Use Types Packs/Day Years [...] Tech [place] [phone] Giacomo Queen 10/11/2023 11:15 AM EDT Office [place] [phone] Basim Barr MD [facility] [place] [address] 10/18/2023 9:00 AM EDT Office Visit Hematology/Oncology at [address] [phone] Cl Hess MD [facility] [place] [address] Yessi Renee [address] HEMATOLOGY AND ONCOLOGY [place], [place] [address] 10/18/2023 9:30 AM EDT Infusion Hematology Oncology at [address] [phone] 10/24/2023 9:30 AM EDT Scheduled View Only Radiation Oncology at [address] [phone] Rad , [facility] 10/24/2023 10:00 AM EDT Office Visit Radiation Oncology at [address] [phone] Bigg Peters MD [address] [place] [address] DR RADIATION ONCOLOGY [place], [place] 6[address] 11/01/2023 9:00 AM EDT Office Visit Hematology/Oncology at [address] [phone] Cl Hess MD [facility] [place] [address] Yessi Renee [address] HEMATOLOGY AND ONCOLOGY [place], [place] [address] 11/01/2023 9:30 AM EDT Infusion Hematology Oncology at [address] [phone] 12/24/2023 1:00 PM EDT TH Visit (TeleHealth) Radiation Oncology at [address] [address] Ping Moore PA [facility] DR [place] [address] documented as of this encounter Visit Diagnoses Diagnosis Encounter for screening laboratory testing for COVID-19 virus documented in this encounter Care Teams Student Teaching Coordinator Relationship Specialty Start Date End Date Alo Carey DO [address] [place] [address] [place] [phone] PCP - General Internal Medicine 08/31/20 07/03/23 documented as of this encounter
--- OUTSIDE RECORDS SUMMARY | 2023-10-06 00:41 | XMS_ITS | Encounter Summary ---
Author Organization [facility] [place] [address] Care Team Providers Care Sweeper Brush Maker Machine Name Role Phone Alo Carey DO Primary Care Provider [phone] Encounter Details Date Type Department Care Team (Late st Contact Info) Description 07/18/2021 10:05 PM EDT Ancillary Procedure [place] [phone] Social History Tobacco Use Types Packs/Day Years [...] AM EDT Tech [place] [address] Giacomo Queen 10/11/2023 11:15 AM EDT Office [place] [phone] Basim Barr MD [facility] [place] [address] 10/18/2023 9:00 AM EDT Office Visit Hematology/Oncology at [address] [phone] Cl Hess MD [facility] [place] [address] Yessi Renee [address] HEMATOLOGY AND ONCOLOGY [place], [place] [phone] 10/18/2023 9:30 AM EDT Infusion Hematology Oncology at [address] [phone] 10/24/2023 9:30 AM EDT Scheduled View Only Radiation Oncology at [address] [phone] [place] Bow[place] 10/24/2023 10:00 AM EDT Office Visit Radiation Oncology at [address] [phone] Bigg Peters MD [address] [place] [address] DR RADIATION ONCOLOGY [place], [place] [phone] 11/01/2023 9:00 AM EDT Office Visit Hematology/Oncology at [address] [phone] Cl Hess MD [facility] [place] [place] [address] Yessi Renee, [address] HEMATOLOGY AND ONCOLOGY [place], [place] [phone] 11/01/2023 9:30 AM EDT Infusion Hematology Oncology at [address] [phone] 12/24/2023 1:00 PM EDT TH Visit (TeleHealth) Radiation Oncology at [address] [address] Ping Moore PA [facility] DR [place] [address] documented as of this encounter Procedures Procedure Name Priority Date/Time Associated Diagnosis Comments REQUEST FOR 2ND READ CT HEAD AND SPINE Routine 07/18/2021 9:57 PM EDT documented in this encounter Results * Request For 2nd Read CT Head [...] questions please contact the health child care director that requested your imaging first. ? Narrative 07/19/2021 8:15 AM EDT EXAMINATION: REQUEST FOR 2ND READ CT HEAD AND SPINE CLINICAL HISTORY: AMS and visual hallucinations. Recent R ICA TCAR 07/14, Please compare with earlier Head CT; Sending Institution [facility]; Date of exam [id number]; I believe a reinterpretation of this exam may alter care of Patient. Yes TECHNIQUE: CTA carotids and [place] performed following the intravenous administration of 100 mL Omnipaque 350. Study was performed at [facility] on 07/18/2021 COMPARISON: Angiogram images [...] compare with earlier Head CT; Sending Institution [facility];Date of exam [id number]; I believe a reinterpretation of this exam may alter careof Patient. Yes TECHNIQUE: CTA carotids and [place] performed following theintravenous administration of 100 mL Omnipaque 350. Study was performed at [facility] on 07/18/2021 COMPARISON: Angiogram images 07/14/2021 FINDINGS: [...] have questions please contactthe health child care director that requested your imaging first. Electronically signed by: Andrew Canseco MD, [facility]([phone]), at 07/19/2021 8:15 AM Salome STAUFFER OUTSIDE INTERPRE TATION ORDERABLES documented in this encounter Visit Diagnoses Not on filedocumented in this encounter Care Teams Sweeper Brush Maker Machine Relationship Specialty Start Date End Date Alo Carey DO [address] [place] [address] [place] [address] PCP - General Internal Medicine 08/31/20 07/03/23 documented as of this encounter
--- OUTSIDE RECORDS SUMMARY | 2023-10-06 00:41 | XMS_ITS | Encounter Summary ---
Author Organization [facility] [place] [address] Care Team Providers Care Naval Aircrewman Name Role Phone Alo Carey DO Primary Care Provider [phone] Encounter Details Date Type Department Care Team (Late st Contact Info) Description 07/18/2021 12:00 PM EDT Ancillary Procedure [place] [phone] Alo Carey DO [address] [place] [address] [place] [phone] Social History Tobacco Use Types Packs/Day Years [...] Visit [place] [phone] Giacomo Queen 10/11/2023 11:15 AM EDT Office Visit [place] [address] Basim Barr MD [facility] [place] [address] 10/18/2023 9:00 AM EDT Office Visit Hematology/Oncology at [address] [phone] 65 Cl Hess MD [facility] [place] [address] Yessi Renee [address] HEMATOLOGY AND ONCOLOGY [place], [place] [address] [phone] 10/18/2023 9:30 AM EDT Infusion Hematology Oncology at [address] [phone] 10/24/2023 9:30 AM EDT Scheduled View Only Radiation Oncology at [address] [phone] Rad Nurse, [facility] 10/24/2023 10:00 AM EDT Office Visit Radiation Oncology at [address] [phone] Bigg Peters MD [address] [place] [address] [place] [address] 11/01/2023 9:00 AM EDT Office Visit Hematology/Oncology at [address] [phone] Cl Hess MD [facility] [place] [address] Yessi Renee [address] HEMATOLOGY AND ONCOLOGY [place], [place] [address] [phone] 11/01/2023 9:30 AM EDT Infusion Hematology Oncology at [address] [address] 12/24/2023 1:00 PM EDT TH Visit (TeleHealth) Radiation Oncology at [address] [phone] Ping Moore PA [facility] [place] [address] documented as of this encounter Procedures Procedure Name Priority Date/Time Associated Diagnosis Comments FILM LIBRARY STORAGE ONLY CT HEAD Routine 07/18/2021 11:56 AM EDT documented in this encounter Results * Film Library- Storage Only CT Head (07/18/2021 11:56 AM EDT) Narrative [facility] - 07/18/2021 11:56 AM EDT This exam is auto-finalizing. It's purpose is for storage only. Alo Carey DO [facility] FILM LIBRARY ORD ERABLES Performing Organization Address City/State/[facility] Co de Phone Number [place], [place] documented in this encounter Visit Diagnoses Not on filedocumented in this encounter Care Teams Naval Aircrewman Relationship Specialty Start Date End Date Alo Carey DO [address] [place] [address] [place] [address] PCP - General Internal Medicine 08/31/20 07/03/23 documented as of this encounter
--- OUTSIDE RECORDS SUMMARY | 2023-10-06 00:41 | XMS_ITS | Encounter Summary ---
[place] [address] Care Team Providers Care Electrolysis Needle Operator Name Role Phone Alo Carey Primary Care Provider [phone] Reason for Referral * Diagnostic Test (Routine) - Closed Specialty Diagnoses / Procedures Referred By Marques livingston Referred To Contact Diagnoses Stenosis of carotid artery, unspecified laterality History of cerebrovascular accident History of carotid endarterectomy Procedures Carotid Duplex, Bilateral Al Huerta APRN [facility] [place] [address] [facility] [address] [place] [phone] Referral ID Status Reason Start Date Expiration Date V isits Requested Visits Authorized [id number] Closed Specialty Service Requested 07/16/2021 07/16/2022 1 1 Reason for Visit * Auth/Cert Specialty Diagnoses [...] Expiration Date Visits Re quested Visits Authorized [id number] 1 1 Encounter Details Date Type Department Care Team (Latest Contact Info) Description 07/14/2021 6:53 AM EDT - 07/17/2021 4:32 PM EDT Hospital Encounter [facility] [place] [address] Basim Barr MD [facility] [place] [address] Stenosis of carotid artery, unspecified laterality; Pre-op testing; History of cerebrovascular accident; History of carotid endarterectomy Discharge Disposition: Home Social History Tobacco Use [...] Sign Reading Time Taken Comments Blood Pressure 110/52 07/17/2021 10:00 AM EDT Pulse 60 07/17/2021 10:00 AM EDT Temperature 36.8 ??C (98.2 ??F) 07/17/2021 8:04 AM ED T Respiratory Rate 16 07/17/2021 10:0 0 AM EDT Oxygen Saturation 94% 07/17/2021 10: 00 AM EDT Inhaled Oxygen Concentration - - Weight 105.4 kg (232 lb 5.8 oz) 07/17/2021 5:51 AM EDT Height 180.3 cm (5' 11) 07/14/2021 7:27 AM EDT Body Mass Index 32.41 07/14/2021 7:27 AM EDT documented in this encounter Discharge Summaries * Marga Joseph APRN - 07/17/2021 8:17 AM EDT Inpatient - Discharge Summary Patient Name: Tha Sadler Patient Age: 71 y.o. Birthdate: 1950 Admit date: 07/14/2021 Discharge date and time: 07/17/2021 Attending Physician: Basim Barr MD Discharging Provider: Marga Joseph APRN Discharging Service: Vascular Surgery Operations/Major Procedures: 07/14/21: Right TCAR Active Hospital Problems: Active Hospital Problems Diagnosis ??? Stenosis of carotid artery, unspecified laterality ??? Diabetes mellitus ??? Hypertensive disorder ??? Hypercholesterolemia Resolved Hospital Problems No resolved problems to display. Active Non Hospital Problems: Active Non-Hospital Problems Diagnosis ??? Hx of CABG ??? Glass prosthetic [...] History of carotid endarterectomy ??? Colorectal cancer History of Presentation: 71 y.o. male with history of HTN. 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 Episode of R monocular blindness. Presents today for R TCAR. Patient is maintained on daily ASA, plavix, statin. Patient reports stopping both ASA and plavix onTuesday. Will load in pre-op today. Hospital Course: In surgery, findings of: Anatomy consistent with preoperative imaging. R TCAR performed with predilation to 4.5mm. [id number] Enroute stent placed and post- dilated to 5mm. No changes on intraoperative neurological monitoring. Neurologically intact and at baseline at case completion. Patient admitted for post operative observation and management. Patient endorsed mild headache which resolved with b/p control. Required Nicardipine through POD1 to meet systolic goals. Lisinopril added to home regimen of Amlodipine and Carvedilol and will be continued at discharge. Otherwise patients recovery went well, tolerated PO, minimal pain, right supraclavicular CDI, ambulating independently, voiding adequate amounts. Patient is medically ready for discharge to home. Prescriptions for Lisinopril and increased dose of Atorvastatin sent to his pharmacy. Will f/u in one month with carotid duplex and in 6 months with xray of neck. ?? Day of discharge exam: BP 131/62 Pulse 58 Temp 36.8 ??C (98.2 ??F) (Oral) Resp 13 Ht 180.3 cm (5' 11) Wt 105.4 kg (232 lb 5.8 oz) SpO2 96% BMI 32.41 kg/m?? General: NAD, resting comfortably HEENT: PERRL, anicteric sclerae. Prosthetic L eye. Neck: trachea midline. 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 Follows commands. Speech normal. Extremities: wwp Important Studies and Lab Data: Labs: Lab Results Component Value Date WBC 7.4 07/14/2021 RBC 4.15 (L) 07/14/2021 HGB 13.0 (L) 07/14/2021 HCT 39.4 (L) 07/14/2021 MCV 94.9 (H) 07/14/2021 MCH 31.3 07/14/2021 MCHC 33.0 07/14/2021 PLATELET 234 07/14/2021 RDWCV 13.4 07/14/2021 Discharge Condition: Good Discharge to: Home Future Appointments and Orders Future Appointments and Orders Future Appointments Provider Department Dept Phone 07/26/2021 2:00 PM [facility] RAD/ONC, TREATMENT Radiation Oncology at [facility] Arrive at: [facility] door at end of hallway [phone] 07/27/2021 2:45 PM [facility] RAD/ONC, TREATMENT Radiation Oncology at [facility] Arrive at: [facility] door at end of hallway [phone] 07/28/2021 12:15 PM [facility] RAD/ONC, TREATMENT Radiation Oncology at [facility] Arrive at: [facility] door at end of hallway [phone] 08/01/2021 12:45 PM [facility] RAD/ONC, TREATMENT Radiation Oncology at [facility] Arrive at: [facility] door at end of hallway [phone] 08/02/2021 12:45 PM [facility] RAD/ONC, TREATMENT Radiation Oncology at [facility] Arrive at: [facility] door at end of hallway [phone] 08/03/2021 12:45 PM [facility] RAD/ONC, TREATMENT Radiation Oncology at [facility] Arrive at: [facility] door at end of hallway [phone] 08/04/2021 1:00 PM [facility] RAD/ONC, TREATMENT Radiation Oncology at [facility] Arrive at: [facility] door at end of hallway [phone] 08/07/2021 12:45 PM [facility] RAD/ONC, TREATMENT Radiation Oncology at [facility] Arrive at: [facility] door at end of hallway [phone] 08/08/2021 12:45 PM [facility] RAD/ONC, TREATMENT Radiation Oncology at [facility] Arrive at: [facility] door at end of hallway [phone] 08/09/2021 12:45 PM [facility] RAD/ONC, TREATMENT Radiation Oncology at [facility] Arrive at: [facility] door at end of hallway [phone] 08/10/2021 12:45 PM [facility] RAD/ONC, TREATMENT Radiation Oncology at [facility] Arrive at: [facility] door at end of hallway [phone] 08/11/2021 1:00 PM [facility] RAD/ONC, TREATMENT Radiation Oncology at [facility] Arrive at: [facility] door at end of hallway [phone] 08/14/2021 12:45 PM [facility] RAD/ONC, TREATMENT Radiation Oncology at [facility] Arrive at: [facility] door at end of hallway [phone] 08/15/2021 12:45 PM ST[facility] RAD/ONC, TREATMENT Radiation Oncology at [facility] Arrive at: [facility] door at end of hallway [phone] 08/16/2021 12:45 PM [facility] RAD/ONC, TREATMENT Radiation Oncology at [facility] Arrive at: [facility] door at end of hallway [phone] 08/17/2021 12:45 PM STJ RAD/ONC, TREATMENT Radiation Oncology at [facility] Arrive at: [facility] door at end of hallway [phone] 08/18/2021 12:45 PM [facility] RAD/ONC, TREATMENT Radiation Oncology at [facility] Arrive at: [facility] door at end of hallway [phone] 08/21/2021 12:45 PM STJ RAD/ONC, TREATMENT Radiation Oncology at [facility] Arrive at: [facility] door at end of hallway [phone] 08/22/2021 12:45 PM [facility]J RAD/ONC, TREATMENT Radiation Oncology at [facility] Arrive at: [facility] door at end of hallway [phone] 08/23/2021 12:45 PM STJ RAD/ONC, TREATMENT Radiation Oncology at [facility] Arrive at: [facility] door at end of hallway [phone] 08/24/2021 12:45 PM STJ RAD/ONC, TREATMENT Radiation Oncology at [facility] Arrive at: [facility] door at end of hallway [phone] 08/25/2021 12:45 PM STJ RAD/ONC, TREATMENT Radiation Oncology at [facility] Arrive at: [facility] door at end of hallway [phone] 08/28/2021 12:45 PM STJ RAD/ONC, TREATMENT Radiation Oncology at [facility] Arrive at: [facility] door at end of hallway [phone] 08/29/2021 12:45 PM STJ RAD/ONC, TREATMENT Radiation Oncology at [facility] Arrive at: [facility] door at end of hallway [phone] 08/30/2021 12:45 PM STJ RAD/ONC, TREATMENT Radiation Oncology at [facility] Arrive at: [facility] door at end of hallway [phone] 08/31/2021 12:45 PM STJ RAD/ONC, TREATMENT Radiation Oncology at [facility] Arrive at: [facility] door at end of hallway [phone] 09/01/2021 12:45 PM STJ RAD/ONC, TREATMENT Radiation Oncology at [facility] Arrive at: [facility] door at end of hallway [phone] 09/05/2021 12:45 PM STJ RAD/ONC, TREATMENT Radiation Oncology at [facility] Arrive at: [facility] door at end of hallway [phone] Future Orders Complete By Expires Carotid Duplex, Bilateral [VAS1 Custom] 08/16/2021 07/16/2022 Process Instructions: There is no in-house vascular mill laborer available on weeknights (5pm-8am), weekends, or holidays. IF THIS IS A REQUEST FOR AN EMERGENT STUDY DURING THOSE HOURS, please have the senior provider responsible for the patient page the Vascular Surgery Fellow/Senior Resident education dean to discuss options. Scheduling Instructions: Questions: Indication for study/signs & symptoms: s/p R TCAR Question to be answered: patency Preferred location?: [facility] Carotid Duplex, Bilateral [VAS1 Custom] 01/16/2022 07/16/2022 Process Instructions: There is no in-house vascular mill laborer available on weeknights (5pm-8am), weekends, or holidays. IF THIS IS A REQUEST FOR AN EMERGENT STUDY DURING THOSE HOURS, please have the senior provider responsible for the patient page the Vascular Surgery Fellow/Senior Resident education dean to discuss options. Scheduling Instructions: Questions: Indication for study/signs & symptoms: s/p R TCAR Question to be answered: patency Preferred location?: [facility] XR Neck Soft Tissue (Generic) [27787 Custom] 01/16/2022 07/16/2022 Process Instructions: Scheduling Instructions: Questions: Where will study be performed?: [facility] Radiology Portable exam?: Reason for exam and clinical history: s/p R TCAR, assess for stent fracture Clinical information / fernando questions for radiologist: Stat read required?: Date of injury if applicable: Requested Time: Anticoagulation & Antiplatelet: Anticoagulation: not indicated Antiplatelet: Agent: ASA, Plavix Indication:ASCVD Intended Duration: [facility] For questions regarding these medications, please contact: PCP Discharge Medications: Your Medications New Medications Dose Details acetaminophen 500 mg Tab Commonly known as: Tylenol Take 2 tablets by mouth every 6 hours. 1,000 mg Quantity: 30 tablet Refills: 1 lisinopriL 20 mg Tab Commonly known as: Zestril Take 1 tablet by mouth daily. 20 mg Quantity: 90 tablet Refills: 3 Continued medications with new dosing Dose Details atorvastatin 80 mg Tab Commonly known as: Lipitor Take 1 tablet by mouth every evening. What changed: ?? medication strength ?? how much to take ?? how to take this ?? when to take this 80 mg Quantity: 90 tablet Refills: 3 Continued medications, unchanged Dose Details amLODIPine 10 mg Tab Commonly known as: Norvasc Take 10 mg by mouth daily. 10 mg Refills: 0 aspirin EC 81 mg Tbec Take 81 mg by mouth daily. 81 mg Refills: 0 carvediloL 25 mg Tab [...] daily (with meals). 1,000 mg Refills: 0 STOPPED Medications levoFLOXacin 500 mg Tab Commonly known as: LEVAQUIN Updated Allergies/ADRs: Allergies Allergen Reactions ??? Cyclobenzaprine Other (See Comments) Extreme moodiness ??? Other [Unclassified Drug] Other (See Comments) Had reaction to a dye used during vascular procedure at [facility] in [place]: shaking Has tolerated MRI and CT contrast. Follow-up Recommendations for Providers: One month f/u with carotid duplex 6 month f/u with xray neck to assess stent. Instructions Given to Patient at Discharge: Patient Instructions You were admitted to the hospital after having a right carotid stent. This operation went very well. Dr. Barr will want you to be seen in approximately one month with a carotid ultrasound of your neck first. This will be scheduled and sent to you in the mail. If for some reason you don't receive this in a week, please call our office at the number below as your follow-up is very important. Please check your blood pressure twice daily, if the systolic (top number) is above 160, please sit/lie quietly for 20-25 minutes and retake. If still above 160 please call. (Keep a log of your readings and bring to your appointments) Please see your primary care provider in next 1-2 weeks for a post operative check and blood pressure assessment as you may need further adjustments in your medications. Call your doctor if: Any change in vision, numbness or inability to move any extremity, inability to speak and or a headache unresponsive to Tylenol. Activity level: up as tolerated but take it easy for a week or so. Diet: regular Driving: ok after a week if you feel perfect and you were driving before Shower/Bath: showering or bath is ok Wound Care: wash with soap and water, careful shaving as your neck may be a little numb. This will gradually disappear. For any problems or questions please call our office at [phone] For issues on weeknights after 5pm and weekends please call [phone] and ask for the Vascular Fellow education dean. documented in this encounter Discharge Instructions * Patient Instructions* Marga Joseph APRN - 07/14/2021 1:33 PM EDT You were admitted to the hospital after having a right carotid stent. This operation went very well. Dr. Barr will want you to be seen in approximately one month with a carotid ultrasound of your neck first. This will be scheduled and sent to you in the mail. If for some reason you don't receive this in a week, please call our office at the number below as your follow-up is very important. Please check your blood pressure twice daily, if the systolic (top number) is above 160, please sit/lie quietly for 20-25 minutes and retake. If still above 160 please call. (Keep a log of your readings and bring to your appointments) Please see your primary care provider in next 1-2 weeks for a post operative check and blood pressure assessment as you may need further adjustments in your medications. Call your doctor if: Any change in vision, numbness or inability to move any extremity, inability to speak and or a headache unresponsive to Tylenol. Activity level: up as tolerated but take it easy for a week or so. Diet: regular Driving: ok after a week if you feel perfect and you were driving before Shower/Bath: showering or bath is ok Wound Care: wash with soap and water, careful shaving as your neck may be a little numb. This will gradually disappear. For any problems or questions please call our office at [phone] For issues on weeknights after 5pm and weekends please call [phone] and ask for the Vascular Fellow education dean. documented in this encounter Medications at Time [...] mouth daily. 90 tablet 3 07/17/2021 07/21/2021 carvediloL (Coreg) 25 mg Tablet Take 25 [...] as of this encounter Progress Notes * Lexi Walker MD - 07/16/2021 8:34 AM EDT Vascular Surgery Progress Note Tha Sadler is a 71 y.o. male with history of HTN. 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 Episode of R monocular blindness. Presents today for R TCAR. ?? Patient is maintained on daily ASA, plavix, statin. Patient reports stopping both ASA and plavix onTuesday. Will load in pre-op. Active Hospital Problems Diagnosis ??? Stenosis of carotid artery, unspecified laterality Resolved Hospital Problems No resolved problems to display. Active Non-Hospital Problems Diagnosis ??? Hx of CABG ??? Glass prosthetic [...] Diabetes mellitus ??? Hypercholesterolemia ??? Hypertensive disorder Scheduled Medications: ??? [START ON 07/17/2021] lisinopriL 20 mg Oral Daily ??? lisinopriL 10 mg Oral Once ??? aspirin EC 81 mg Oral Daily ??? atorvastatin 80 mg Oral QPM ??? clopidogreL 75 mg Oral Daily ??? acetaminophen 1,000 mg Oral Q6H MARLEE ? ? insulin lispro 1-4 Units Subcutaneous 4 Times Daily AC & HS ??? amLODIPine 10 mg Oral Daily ??? carvediloL 25 mg Oral BID WC Operations This Hospitalization: 07/14: RIGHT TCAR Subjective: - c/o mild SCOTT , resolved at this time with tylenol and BP control. 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 Objective: Temp: [36.5 ??C (97.7 ??F)-36.9 ??C (98.5 ??F)] Heart Rate: [46-79] Resp: [12-21] BP: (101-172)/(50-91) SpO2: [93 %-97 %] Heart Rate from SpO2: [50 bpm-78 bpm] BMI: Weight: 106.2 kg (234 lb 3.2 oz) (07/14/21 0727) BMI (Calculated): 32.66 BMI Classification: Obese Intake/Output Summary (Last 24 hours) at 07/16/2021 0834 Last data filed at 07/16/2021 0656 Gross per 24 hour Intake 902.5 ml Output 450 ml Net 452.5 ml PHYSICAL EXAM: General: NAD, resting comfortably HEENT: PERRL, anicteric sclerae. Prosthetic L eye. Neck: trachea midline. 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 Follows commands. Speech normal. Extremities: wwp Labs: Recent Labs 07/14/21 0716 WBC 7.4 HGB 13.0* HCT 39.4* PLATELET 234 Recent Labs 07/14/21 0716 NA 138 K 4.3 CL 103 CO2 22 BUN 13 CREATININE 0.71* CALCIUM 9.0 Microbiology: Covid screening negative New Studies: No new studies Assessment & Plan: Tha Sadler is a 71 y.o. male 2 Days Post-Op s/p RIGHT TCAR. SCOTT post-operative consistent with mild cerebral hyperperfusion syndrome, pt neurologically intact and at baseline. SCOTT resolved with blood pressure control with nicardipine gtt. - Continue oral anti-hypertensives (amlodipine, coreg) - addition of lisinopril to oral antihypertensive regimen, will increase lisinopril dose to 20mg daily - encourage out of bed - voiding spontaneously, low Urine output, encourage PO hydration Anticoagulation: N/A Antiplatelet: ASA, plavix, correction Lexi Walker MD 07/16/2021 Pager: [phone] * Honey Farias RN - 07/16/2021 5:39 AM EDT OUTCOME EVALUATION NOTE: OUTCOME SUMMARY: Tha has had a fairly uneventful evening. He remains alert and oriented. Continues to have a nagging headache despite interventions of tylenol and PRN oxycodone. Blood pressures started to climb overnight again. Tha receieved 1 dose of hydralazine due to heart rate in the low 60's. Followed by 2 doses of labetalol when heart rate was higher with little effect at keeping pressures down. Spoke with provider who agreed to allow the 9am dose of lisinopril to be administered early since he seemed to respond well throughout the day to oral interventions. Tha has low urine output and has used urinal x2 this shift with higher PVRs with bladder scan. Tha has issues with urinary retention and states this is not uncommon to void little at a time. Continuing to monitor. Incisions remain well approximated, CONTRACTS ADVISOR, no drainage, no signs of infection. PLAN MOVING FORWARD: Up to chair Encourage oral intake Ambulate with assist Discharge planning Monitor and treat BP for goal less than 160 systolic INDIVIDUALIZED FALL PREVENTION INTERVENTIONS: Patient-specific fall risk factors per assessment: [current deficits]: Legally blind in right eye; sees shadows, Left eye prosthetic. Has been blind for approx 19 months. Unfamiliar environment Assistance [level of assistance required for transfers and ambulation]: 1 assist Supervision [direct monitoring required during toileting and ADLs]: Hands on Surveillance [continuous indirect monitoring]: Purposeful rounding, call mcdonnell within reach, assistive devices within reach, room near nurses station. Patient-specific fall prevention interventions for sensory deficits provided, if applicable: Room clear of clutter, non skid socks when out of bed, call mcdonnell with adaptive sticker for ease in using call bel. CPG GOAL OUTCOME EVALUATION: Ongoing * Lexi Walker MD - 07/15/2021 9:27 AM EDT Vascular Surgery Progress Note Tha Sadler is a 71 y.o. male with history of HTN. 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 Episode of R monocular blindness. Presents today for R TCAR. ?? Patient is maintained on daily ASA, plavix, statin. Patient reports stopping both ASA and plavix onTuesday. Will load in pre-op. Active Hospital Problems Diagnosis ??? Stenosis of carotid artery, unspecified laterality Resolved Hospital Problems No resolved problems to display. Active Non-Hospital Problems Diagnosis ??? Hx of CABG ??? Glass prosthetic [...] Diabetes mellitus ??? Hypercholesterolemia ??? Hypertensive disorder Scheduled Medications: ??? lisinopriL 10 mg Oral Daily ??? aspirin EC 81 mg Oral Daily ??? atorvastatin 80 mg Oral QPM ??? clopidogreL 75 mg Oral Daily ??? acetaminophen 1,000 mg Oral Q6H MARLEE ? ? insulin lispro 1-4 Units Subcutaneous 4 Times Daily AC & HS ??? amLODIPine 10 mg Oral Daily ??? carvediloL 25 mg Oral BID WC Operations This Hospitalization: 07/14: RIGHT TCAR Subjective: - c/o mild SCOTT post-operatively yesterday, resolved at this time with BP control. 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 Objective: Temp: [35.6 ??C (96.1 ??F)-37.7 ??C (99.9 ??F)] Heart Rate: [59-87] Resp: [9-23] BP: (102-188)/(56-95) SpO2: [91 %-99 %] Heart Rate from SpO2: [59 bpm-97 bpm] BMI: Weight: 106.2 kg (234 lb 3.2 oz) (07/14/21 0727) BMI (Calculated): 32.66 BMI Classification: Obese Intake/Output Summary (Last 24 hours) at 07/15/2021 0928 Last data filed at 07/15/2021 0541 Gross per 24 hour Intake 3468 ml Output 2825 ml Net 643 ml PHYSICAL EXAM: General: NAD, resting comfortably HEENT: PERRL, anicteric sclerae. Prosthetic L eye. Neck: trachea midline. 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 Follows commands. Speech normal. Extremities: wwp Labs: Recent Labs 07/14/21 0716 WBC 7.4 HGB 13.0* HCT 39.4* PLATELET 234 Recent Labs 07/14/21 0716 NA 138 K 4.3 CL 103 CO2 22 BUN 13 CREATININE 0.71* CALCIUM 9.0 Microbiology: Covid screening negative New Studies: No new studies Assessment & Plan: Tha Sadler is a 71 y.o. male 1 Day Post-Op s/p RIGHT TCAR. SCOTT post-operative consistent with mild cerebral hyperperfusion syndrome, pt neurologically intact and at baseline. SCOTT resolved with bloodpressure control with nicardipine gtt. - Continue oral anti-hypertensives (amlodipine, coreg) - addition of lisinopril to oral antihypertensive regimen - wean nicardipine gtt as able - encourage out of bed - Due to void Anticoagulation: N/A Antiplatelet: ASA, plavix, correction Lexi Walker MD 07/15/2021 Pager: [phone] * Honey Farias, AYE - 07/15/2021 3:10 AM EDT Tha was moved into PCU around 0250 after having severe symptomatic hypertension that was not responding well to PRN IVP medications. Nicardipine drip started. Blood pressures are coming down to normal range for Tha who states his blood pressures are typically in the upper 120's systolic. Tha is placed on bedside monitor, plan of care is reviewed. Call mcdonnell given to Tha with adaptive sticker over call button so it can easily be identified due to his vision impairment. IV sites assessed. Nicardipine continues at 7.5 mg/hour. No complaint of nausea and states headache has improved. Witt removed at 0540. Vitals continue to be stable on room air. BP is meeting goal of less than 150 systolic. He remains on room air, heart rate regular. * Deloris Cruz RN - 07/15/2021 3:03 AM EDT 2028~ Labetolol 20mg given IV for BP188/95 AOx4, endorses a 3/10 headache, NO facial asymmetry, R pupil is reactive to light, CIARAN left eye (prosthetic eye), 4/5 strength x4 extremities. R CEA incision is QIANA , dermabonded. R groin incision dressing remains clean, dry and intact. +doppler signals on bilateral pedal pulses. 2037~ Patient with large amt of emesis. 2 assist with partial bath, dressing and linen change. PRN ZOfran 4mg given IV. 4W Railway Signal Technician at bedside. MD Smallwood was made aware and came to bedside. Patient to be transferred to higher level of care for BP control with Nicardipine gtt. 2110~ Hydralazine 20mg given for BP 165/75 2132~ BP 133/66, HR91 230~ Nicardipine gtt started at 5mg/hr for BP 158/81 by 4W RN Railway Signal Technician, to titrate accordingly. MD Smallwood was paged and verified if the witt should still be removed at 12midnight considering that patient will be moved to PCU, awaiting call back for close monitoring. 253~ report given to CLIMATOLOGY TEACHERAYE Méndez. Patient was transferred to PCU 428 with Nicardipine gtt at 7.5mg/hr. Recent BP was 112/69. * Gretchen Mullen MD - 07/14/2021 3:14 PM EDT Surgery Post Op Check Tha Sadler is a 71 y.o. male status post R TCAR S: Complains of mild headache not controlled by tylenol, has been hypertensive in PACU O: Temp: [35.6 ??C (96.1 ??F)-36.3 ??C (97.3 ??F)] Heart Rate: [59-69] Resp: [9-18] BP: (133-179)/(70-84) SpO2: [95 %-99 %] Heart Rate from SpO2: [59 bpm-72 bpm] No intake/output data recorded. I/O this shift: In: 1900 [I.V.:1900] Out: 1225 [Urine:1200; Blood:25] Physical Exam General: NAD, resting comfortably HEENT: Incision c/d/i CVS: RR Pulm: NWOB Abd: Non-distended Ext: puncture site c/d/i (right groin), distal pulse palp Neuro: Grossly intact to conversation AP Tha Sadler is a 71 y.o. male status post L TCAR currently in stable condition and recovering well - pain well controlled - required PRNs in PACU for HTN w SCOTT, however HTN and SCOTT improved w BP control * Taylor Rivera RN - 07/14/2021 12:37 PM EDT 1230: Vascular surgery paged about discrepancy in arterial line and cuff pressure, arterial line 170's-180's and cuff 147 both left and right arms. According to vascular surgery, treat cuff pressure not arterial pressure. 1315: Blood pressure up to 168 by cuff, denies pain, given hydralazine iv, neuro intact. 1400 : Vascular paged about hypertension after hydralazine and labetalol, at bedside, more labetalol given, patient medicated for neck pain with oxycodone and tylenol for headache. [id number]: Patient ok 'd to go to floor, BP 140's, report called to 4 west, finger stick 114. * Floridalma Davis RN - 07/14/2021 11:54 AM EDT 1145- RN Break Coverage, Labetalol & Hydralazine given for Mary pressures in 180's * Taylor Rivera RN - 07/14/2021 11:35 AM EDT 1130 : Patient received from operating room, alarms on and set appropriate for patient, vs's, finger stick 159, patient denies pain and nausea, neuro intact. documented in this encounter H&P Notes * Wojciech Madera MD - 07/14/2021 7:53 AM EDT Vascular Surgery History and Physical HPI: Tha Sadler is a 71 y.o. male with history of HTN. 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 Episode of R monocular blindness. Presents today for R TCAR. Patient is maintained on daily ASA, plavix, statin. Patient reports stopping both ASA and plavix onTuesday. Will load in pre-op today. Review of Systems: A full review encompassing at least 10 organ systems including general, neuro, pulm, cardiac, GI, , MSK, Endo, and psych was negative other than that listed in the HPI. Past Medical History: Past Medical History: Diagnosis [...] cancer ??? Stroke 11-24-19 Past Surgical History: Past Surgical [...] 12.15) performed by Cayetano Engle MD at [facility] MAIN OR ??? PRO TOTAL HIP ARTHROPLASTY Left 10/10/2020 TOTAL HIP ARTHROPLASTY - POSTERIOR (WRVU 20.72) performed by Ismael Wu MD at [facility] MAIN OR Functional Status/Social Hx: Lives at home, Former smoker Family Hx: Negative for Thrombosis, Bleeding Disorders Medications: No current facility-administered medications on file prior to encounter. Current Outpatient Medications on File Prior to Encounter Medication Sig Dispense Refill ??? carvediloL (Coreg) 25 mg Tablet Take 25 mg by mouth 2 times daily (with meals). ??? glimepiride (Amaryl) 1 mg Tablet daily. Will take BID on days of dexamethasone ??? atorvastatin (Lipitor) 40 mg Tablet Daily. ??? clopidogreL (Plavix) 75 mg Tablet daily. [...] Capsule Take 2 g by mouth daily. Allergies: Cyclobenzaprine and Other [unclassified drug] Physical Exam: Temp: -- Heart Rate: -- Resp: -- BP: -- SpO2: -- Heart Rate from SpO2: -- General: NAD, resting comfortably HEENT: PERRL, anicteric sclerae CVS: Regular rate, no murmurs rubs or gallops Pulm: Clear bilaterally Abd: soft, non tender, non distended Ext: RLE: No edema. Skin warm and pink. No tissue loss. Brisk capillary refill. LLE: No edema. Skin warm and pink. No tissue loss. Brisk capillary refill. Neuro: Grossly nonfocal, moving all extremities. Vascular Exam: R L Carotid 2/2 bruit () 2/2 bruit () Radial 2/2 2/2 Femoral 2/2 2/2 Labs: Recent Labs 07/14/21 0716 WBC 7.4 HGB 13.0* HCT 39.4* PLATELET 234 No results for input(s): NA, K, CL, CO2, BUN, CREATININE, PHOS, CALCIUM in the last 72 hours. Studies/Imaging: Carotid Duplex: Findings: ?? ICA Proximal, Right ?PSV (cm/s): 136 ?EDV (cm/s): 25 ?ICA/CCA: 3.1 ?Plaque Structure: Echogenic ?Plaque Surface: Smooth ?%Stenosis: 16-49% ICA Distal, Right ?PSV (cm/s): 67 ?EDV (cm/s): 23 ?ICA/CCA: 1.5 CCA Distal, Right ?PSV (cm/s): 44 ?EDV (cm/s): 16 ?%Stenosis: <50% CCA Proximal, Right ?PSV (cm/s): 100 ?EDV (cm/s): 18 External Carotid Artery, Right ?PSV (cm/s): 97 ?EDV (cm/s): 6 ?%Stenosis: <50% Vertebral, Right ?PSV (cm/s): 81 ?EDV (cm/s): 21 ?Direction of Flow: Antegrade ICA Proximal, Left ?PSV (cm/s): 95 ?EDV (cm/s): 18 ?ICA/CCA: 1.1 ?Plaque Structure: Echogenic ?Plaque Surface: Smooth ?%Stenosis: 16-49% ICA Distal, Left ?PSV (cm/s): 92 ?EDV (cm/s): 31 ?ICA/CCA: 1.0 CCA Distal, Left ?PSV (cm/s): 90 ?EDV (cm/s): 25 ?%Stenosis: <50% CCA Proximal, Left ?PSV (cm/s): 116 ?EDV (cm/s): 32 External Carotid Artery, Left ?PSV (cm/s): 132 ?EDV (cm/s): 0 ?%Stenosis: <50% Vertebral, Left ?PSV (cm/s): 56 ?EDV (cm/s): 16 ?Direction of Flow: Antegrade ? Interpretation: ?? RIGHT: There is irregular plaque in the common carotid artery causing <50% stenosis by electronic calipers. There is smooth plaque in the proximal internal carotid artery causing 16-49% stenosis when compared to the more distal internal carotid artery. The bifurcation level is in the mid neck. ?? LEFT: There is irregular plaque in the common carotid artery causing <50% stenosis by electronic calipers. There is smooth plaque in the proximal internal carotid artery causing 16-49% stenosis when compared to the more distal internal carotid artery. The bifurcation level is in the mid neck. ? Vertebral Artery Data: Patent vertebral arteries with normal antegrade Doppler waveforms and velocities bilaterally. Assessment and Plan: Tha Sadler is a 71 y.o. male with symptomatic R ICA re- stenosis who presents today for R TCAR. Risks, benefits, and alternatives were discussed and patient elects to proceed. Charleen Madera Vascular Surgery Pager #[phone] documented in this encounter Procedure Notes * Jared Melvin MD - 07/14/2021 10:56 AM EDT NEURODIAGNOSTIC LABORATORY [facility] INTRAOPERATIVE MONITORING REPORT Name: Tha Sadler : 1950 Date of Surgery: 07/14/2021 Surgeon(s): Basim Barr MD; Wojciech Madera MD Surgical Procedure: right trans-carotid arterial revascularization (TCAR) Monitoring Procedure: Intraoperative scalp EEG monitoring and bilateral median nerve somatosensory evoked potentials (SSEPs). CPT Codes: 94571 (EEG), 09549 (upper SSEP bilateral), 18265 (IOM, 5 units), 73539 (IOM, 1 unit). Intraoperative neurophysiologic monitoring was performed for a total duration of 2 hours 8 minutes.During this time period, the IOM attending was present in the operating room for a total of 72 minutes Clinical History: 71 y.o. male with history of R CEA at OSH now with high grade R ICA re-stenosis. Episode of R monocular blindness. Monitoring Team: Jared Melvin MD/PhD; Sixto Rodriguez Anesthesia: sevoflurane, propofol Report: Prior to arrival in the OR scalp electrodes were applied using a paste/collodion method at international 10-10 electrode positions Fz, F3, F4, F7, F8, C3, C4, CP3, CP4, T3, T4, T5, T6, P3, P4, contralateral mastoid, and common at Cz . Following anesthetic, stimulation leads were placed bilaterally over the median nerve. Counts were kept of all electrodes attached to the patient for monitoring, and all were accounted for at the conclusion of the surgery. At baseline before induction of anesthesia, EEG was symmetric with EMG artifacts present. At baseline following induction of anesthesia, the EEG showed reduced amplitude in the F8-T4 channel, relative to F7-T3. Median nerve SSEPs were reproducible and symmetric bilaterally. The EEG and SSEPs were unchanged following clamping of the carotid artery and subsequent flow reversal. No changes were noted during closing, and monitoring was stopped once the patient was extubated and moving all four extremities. Impression: This IONM study raises the possibility of mild R fronto-temporal cerebral dysfunction. No significant changes were noted in the aforementioned responses during the neuromonitoring period. Overall, this IONM study suggests the procedure was accomplished without significant neurophysiologic changes when compared to the patient???s baseline. Jared Melvin MD/PhD CC: Basim Barr MD documented in this encounter Miscellaneous Notes * Initial Assessments - Gissel Ellison RN - 07/17/2021 10:05 AM EDT Office of Care Management Initial Assessment / Discharge note Medical record reviewed. Plan of care and patient status discussed with direct care Registered Nurse and/or Care Team in multidisciplinary rounds. Reason for Hospitalization: TCAR Last COVID test: Lab Results Component Value Date [id number] Not Detected 07/14/2021 Present on Admission: ??? Stenosis of carotid artery, unspecified laterality ??? Diabetes mellitus ??? Hypertensive disorder ??? Hypercholesterolemia Hospitalizations Within the Past 30 Days: no previous admission in last 30 days Patient receiving hospital care under IPI- SDP Admission (IP) status. Admission order reviewed. Primary Insurance on file: MEDICARE Secondary Insurance on file:@ Primary care provider on file: Alo Carey DO [phone] Pharmacy: [id number] - [place], [place] - [address] [facility] [address] [facility] [address] [phone] Advance Care Planning: Attempt Cardiopulmonary Resuscitation - Inpatient <no information> -Advanced Directive: No, declines Current Functional Ability: Assistive Equipment and Assistive Person Functional Status Prior to Admission: Assistive Equipment Home Environment: Others in the home: sibling(s). Current Living Arrangements: home/apartment/condo. Accessibility Concerns:no concerns. Current DME: walker - rolling [address] [facility] [id number] Social & Family Supports: All names listed below confirmed with patient as current and correct Extended Emergency Contact Information Primary Emergency Contact: NUPUR DEGROOT Address: [address] [place] [id number] [place] [address] of [employer] Relation: Significant Other Secondary Emergency Contact: WANDA SADLER Mobile Relation: Sibling Current Care Provided by: self Transportation: no concerns Transportation Anticipated: family or friend will provide Assessment: Patient with no apparent RNCM/SW needs at this time. No housing, transportation, insurance, resources concerns identified at this time. Supports in place to achieve a safe post-hospital transition. No identified barriers to accessing necessary care and/or follow-up after discharge. Plan: Patient to d/c to home via car when medically ready. Registered Nurse Programming Development Project Manager / Axle Bearing Polisher will continue to follow patient???s progress and remain available if situation changes for coordination of care, psychosocial support and/or discharge planning. Office of Care Management Gissel SANTOS, RN Phone: [phone] Pager: [phone] * Plan of Care - Charlotte Sun RN - 07/14/2021 4:50 PM EDT Received to the floor at approximately 1615, BP elevated, see flowsheet for vitals. PRN labetalol given x2, ineffective at lowering BP. MD made aware and at the bedside to assess. Hydralazine given with good effect. HR and O2 stable on RA. Patient maintaining bedrest, HOB restrictions lifted per MD. Witt in place with good UOP. Diet advanced * Op Note - Wojciech Madera MD - 07/14/2021 11:16 AM EDT [facility] [place] Patient Name: Tha Sadler : [id number] MR#: [id number] Case Date: 07/14/2021 Surgeon: Surgeon(s) and Role: * Basim Barr MD - Primary * Wojciech Madera MD - Resident Preoperative diagnosis: symptomatic right ICA stenosis Postoperative diagnosis: symptomatic right ICA stenosis Procedure(s) (LRB): @TRANSCATH INTRAVASCULAR STENT,CAROTID,PERC,W\EMBOLIC PROT. (WRVU 18) (Right) @EXPLORATION NOT FOLLOWED BY SURGICAL REPAIR, ARTERY; NECK (CAROTID OR SUBCLAVIAN) (WRVU 9.19) (Right) Procedures: 1. RIGHT TCAR Findings: Anatomy consistent with preoperative imaging. R TCAR performed with predilation to 4.5mm.[id number] Enroute stent placed and post-dilated to 5mm. No changes on intraoperative neurological monitoring. Neurologically intact and at baseline at case completion. Anesthesia: General Estimated Blood Loss: 25 mL Heparin: 10,000 units Protamine: 50 mg Contrast: 27 mL Fluoro Time: 4.5 minutes Specimens removed during surgery: None Fluids: 1,500 mL Urine: 700 mL Drains: None Surgical Closure: Primary Closure - skin incision is completely closed without any wires, amy, drains or other devices Disposition: awakened from anesthesia, extubated and taken to the recovery room in a stable condition, having suffered no apparent untoward event. Condition: doing well without problems (Please see the Surgical Encounter Summary for any Implant and Specimen details pertinent to this patient.) HPI/Surgical Indications: 71 y.o. male with history of HTN. 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 Episode of R monocular blindness. Presents today for R TCAR. Procedure Description: After informed consent was obtained the patient was brought back to the operating room and placed supine on the OR table. General endotracheal anesthesia was induced and additional support lines (arterial line, witt, PIVs, neuromonitoring) were placed. EEG monitoring was initiated. Preoperative antibiotics were given. A timeout was performed. Attention was then turned to the patient's right groin and rightneck, which were prepped and draped in the standard sterile fashion. Beginning in the right groin, ultrasound guidance was used to obtain access to the common femoral vein using micropuncture technique. This was then upsized to the 8Fr Enroute sheath over a jwire. At the neck, a transverse incision was made between the two heads of the sternocleidomastoid muscle, immediately above the clavicle. The subcutaneous tissue and platysma were divided using a combination of blunt, sharp, and electrocautery dissection. Platysmal flaps were created. The heads of the sternocleidomastoid muscle were and the carotid sheath identified. The internal jugular vein was retracted laterally and the common carotid artery was circumferentially dissected and encircled with umbilical tape.The vagus nerve was identified and preserved. The omohyoid muscle divided with bovie cautery. Satisfied with our exposure, systemic heparin was given. A single pursestring suture of pledgeted 5-0 prolene was placed in the common carotid artery for use later in the case. Micropuncture access of the artery was obtained. A cope wire was inserted and a micropuncture sheath over this.Angiogram was performed to confirm level of the bifurcation. A J-wire was then advanced to below the lesion. The micropuncture sheath was exchanged for the Enroute Neuroprotection System (DRIVER TRAINER) arterial sheath. After confirming appropriate position, this was then sutured in place to the patient's neck with silk suture. Flow reversal was initiated and confirmed to be functioning. We then prepped all devices. The common carotid artery was then clamped proximal to our sheath. An .014 En route wire was then used to select the distal ICA. The ICA stenosis was then pre-dilated with a 4.5x30mm angioplasty balloon. The Enroute stent ([id number]) was then deployed. Post-dilation was performed with a 5x30mm angioplasty balloon. Completion angiogram showed widely patent common and internal carotid arteries. Satisfied, the CCA clamp was removed, the flow reversal system was disconnected and the arterial sheath was removed. The previously placed pursestring was tied down and hemostasis was excellent. H emostasis was obtained with thrombin-soaked gelfoam, fibrillar, and bipolar cautery. The venous line was removed from the groin and direct pressure was applied for hemostasis. The neck wound was thenclosed in layers by reapproximating the sternocleidomastoid muscle in one layer followed by the plat ysma in a second layer. Skin was closed with 4-0 Monocryl followed by Dermabond. All counts were correct, the patient was hemostatic on conclusion and awoke from general anesthesia without incident. No EEG changes were noted throughout the case. The patient was transported to PACU in stable condition. Patient noted to move all extremities to command on case completion. Dr. Barr, was present and scrubbed for the entire procedure. Surgical Infection Prevention Bundle Used? No Implants: Implant Name Type Inv. Item Serial No. Bottle Packing Machine Cleaner Lot No. LRB No. Used Action SYSTEM STENT ENROUTE [id number] RX NIT ([id number]) (AUTOREQ) - [id number] IMPLANTS SYSTEM STENT ENROUTE [id number] RX NIT ([id number]) (AutoReq) [facility] [id number] Right 1 Implanted Associated attestation - Basim Barr MD - 07/17/2021 3:49 PM EDT Attestation: Case Date: 07/14/2021 I was present and I participated during the entire procedure (does not need to include opening and closing). BASIM BARR MD 07/17/2021 documented in this encounter Plan of Treatment Upcoming Encounters Date Type Department Care Team (Late st Contact Info) Description 10/11/2023 10:00 AM EDT Tech Visit [place] [phone] Giacomo Queen 10/11/2023 11:15 AM EDT Office [place] [phone] Basim Barr MD [facility] [place] [address] 10/18/2023 9:00 AM EDT Office Visit Hematology/Oncology at [address] [phone] Cl Hess MD [facility] [place] [address] Yessi Renee APRN [address] [place] [address] DR HEMATOLOGY AND ONCOLOGY [place], [place] [id number] 10/18/2023 9:30 AM EDT Infusion Hematology Oncology at [address] [phone] 10/24/2023 9:30 AM EDT Scheduled View Only Radiation Oncology at [address] [phone] St La Nena Champagne 10/24/2023 10:00 AM EDT Office Visit Radiation Oncology at [address] [phone] Bigg Peters MD [address] [place] [address] DR RADIATION ONCOLOGY [place], [place] [id number] 11/01/2023 9:00 AM EDT Office Visit Hematology/Oncology at [address] [phone] Cl Hess MD [facility] [place] [address] Yessi Renee APRN [address] [place] [address] DR HEMATOLOGY AND ONCOLOGY [place], [place] [id number] 11/01/2023 9:30 AM EDT Infusion Hematology Oncology at [address] [phone] 12/24/2023 1:00 PM EDT TH Visit (TeleHealth) Radiation Oncology at [address] [phone] Ping Moore PA [facility] HEMATOLOGY [place] [address] documented as of this encounter Procedures Procedure Name Priority Date/Time Associated Diagnosis Comments POCT GLUCOSE Routine 07/17/2021 8:07 AM EDT POCT GLUCOSE Routine 07/16/2021 9:35 PM EDT POCT GLUCOSE Routine 07/16/2021 3:51 PM EDT POCT GLUCOSE Routine 07/16/2021 12:00 PM EDT POCT GLUCOSE Routine 07/16/2021 7:51 AM EDT POCT GLUCOSE Routine 07/15/2021 8:59 PM EDT POCT GLUCOSE Routine 07/15/2021 3:56 PM EDT POCT GLUCOSE Routine 07/15/2021 11:46 AM EDT POCT GLUCOSE Routine 07/15/2021 8:09 AM EDT POCT GLUCOSE Routine 07/14/2021 8:43 PM EDT POCT GLUCOSE Routine 07/14/2021 3:57 PM EDT POCT GLUCOSE Routine 07/14/2021 11:09 AM EDT IR OR VASC ANGIOGRAM IMAGE STORAGE ONLY Routine 07/14/2021 10:41 AM EDT RAPID COVID-19 PCR ([facility]) Routine 07/14/2021 10:00 AM EDT Exploration Not Followed By Surg Neck Artery ([id number]) 07/14/2021 8:42 AM EDT Stenosis of carotid artery, unspecified laterality Pre-op testing Place Transcatheter Stent, Cca W Embolic Ect ([id number]) 07/14/2021 8:42 AM EDT Stenosis of carotid artery, unspecified laterality Pre-op testing POCT GLUCOSE Routine 07/14/2021 7:36 AM EDT HC HEMOGRAM STAT 07/14/2021 7:16 AM EDT Stenosis of carotid artery, unspecified laterality Pre-op testing HC PREALBUMIN, SERUM STAT 07/14/2021 7:16 AM EDT Stenosis of carotid artery, unspecified laterality Pre-op testing VITAMIN B12 STAT 07/14/2021 7:16 AM EDT BASIC METABOLIC PANEL STAT 07/14/2021 7:16 AM EDT Stenosis of carotid artery, unspecified laterality Pre-op testing EXPLOR CAROTID ART NOT FOLLOWED BY SURG REPAIR, W\WO LYSIS ART Routine 07/14/2021 6:53 AM EDT Stenosis of carotid artery, unspecified laterality Pre-op testing TRANSCATH INTRAVASCULAR STENT,CAROTID,PERC,W\E MBOLIC PROT. Routine 07/14/2021 6:53 AM EDT Stenosis of carotid artery, unspecified laterality Pre-op testing IMPLANTABLE DEVICES SCAN 07/14/2021 12:00 AM EDT documented in this encounter Results * Carotid Duplex, Bilateral (08/15/2021 8:29 AM EDT) Pathologist [facility] VB Text Report Department: Vascular Surgery Lab Patient: [id number] (THA SADLER) CPT: 07565 Referring Physician: AL HUERTA ?? Phone: Indications: [...] AM EDT Al Huerta APRN VASCULAR ORDERABLES Performing Organization Address [facility] Co de Phone Number [phone] * POCT Glucose (07/17/2021 8:07 AM EDT) Glucose, POC 151 65 - 199 mg/dL [facility] Comment: Supplemental ranges: <140 mg/dL before meals <180 mg/dL all other times of the day Blood 07/17/2021 8:07 AM EDT 07/17/2021 8:07 AM EDT Basim Barr MD POINT OF CARE TEST O RDERABLES Performing Organization Address [facility] Phone Number [facility] [place] [address] * (ABNORMAL) POCT Glucose (07/16/2021 9:35 PM EDT) Glucose, POC 224(H) 65 - 199 mg/dL [facility] Comment: Supplemental ranges: <140 mg/dL before meals <180 mg/dL all other times of the day Blood 07/16/2021 9:35 PM EDT 07/16/2021 9:35 PM EDT Basim Barr MD POINT OF CARE TEST O RDERABLES Performing Organization Address [facility] Co de Phone Number [facility] [place] [address] * POCT Glucose (07/16/2021 3:51 PM EDT) Glucose, POC 164 65 - 199 mg/dL [facility] Comment: Supplemental ranges: <140 mg/dL before meals <180 mg/dL all other times of the day Blood 07/16/2021 3:51 PM EDT 07/16/2021 3:51 PM EDT Basim Barr MD POINT OF CARE TEST O DANIEL [facility] [place] [address] * POCT Glucose (07/16/2021 12:00 PM EDT) Glucose, POC 147 65 - 199 mg/dL [facility] Comment: Supplemental ranges: <140 mg/dL before meals <180 mg/dL all other times of the day Blood 07/16/2021 12:0 0 PM EDT 07/16/2021 12:00 PM EDT Basim Barr MD POINT OF CARE TEST O DANIEL Performing Organization Address City/[facility]/ZIP Co de Phone Number [facility] [place] [address] * POCT Glucose (07/16/2021 7:51 AM EDT) Glucose, POC 150 65 - 199 mg/dL [facility] Comment: Supplemental ranges: <140 mg/dL before meals <180 mg/dL all other times of the day Blood 07/16/2021 7:51 AM EDT 07/16/2021 7:51 AM EDT Basim Barr MD POINT OF CARE TEST O NATHANERAWILLY Performing Organization Address City/[facility]/ZIP Co de Phone Number [facility] [place] [address] * POCT Glucose (07/15/2021 8:59 PM EDT) Glucose, POC 197 65 - 199 mg/dL [facility] Comment: Supplemental ranges: <140 mg/dL before meals <180 mg/dL all other times of the day Blood 07/15/2021 8:59 PM EDT 07/15/2021 8:59 PM EDT Basim Barr MD POINT OF CARE TEST O DANIEL [facility] [place] [address] * POCT Glucose (07/15/2021 3:56 PM EDT) Glucose, POC 197 65 - 199 mg/dL [facility] Comment: Supplemental ranges: <140 mg/dL before meals <180 mg/dL all other times of the day Blood 07/15/2021 3:56 PM EDT 07/15/2021 3:56 PM EDT Basim Barr MD POINT OF CARE TEST O DANIEL Performing Organization Address [facility]/ZIP Co de Phone Number [facility] [place] [address] * (ABNORMAL) POCT Glucose (07/15/2021 11:46 AM EDT) Glucose, POC 203(H) 65 - 199 mg/dL [facility] Comment: Supplemental ranges: <140 mg/dL before meals <180 mg/dL all other times of the day Blood 07/15/2021 11:4 6 AM EDT 07/15/2021 11:46 AM EDT Basim Barr MD POINT OF CARE TEST O NATHANERAWILLY [facility] [place] [address] * POCT Glucose (07/15/2021 8:09 AM EDT) Glucose, POC 175 65 - 199 mg/dL [facility] Comment: Supplemental ranges: <140 mg/dL before meals <180 mg/dL all other times of the day Blood 07/15/2021 8:09 AM EDT 07/15/2021 8:09 AM EDT Basim Barr MD POINT OF CARE TEST O DANIEL [facility] [place] [address] * POCT Glucose (07/14/2021 8:43 PM EDT) Glucose, POC 185 65 - 199 mg/dL [facility] Comment: Supplemental ranges: <140 mg/dL before meals <180 mg/dL all other times of the day Blood 07/14/2021 8:43 PM EDT 07/14/2021 8:43 PM EDT Basim Barr MD POINT OF CARE TEST O DANIEL [facility] [place] [address] * POCT Glucose (07/14/2021 3:57 PM EDT) Glucose, POC 114 65 - 199 mg/dL [facility] Comment: Supplemental ranges: <140 mg/dL before meals <180 mg/dL all other times of the day Blood 07/14/2021 3:57 PM EDT 07/14/2021 3:57 PM EDT Basim Barr MD POINT OF CARE TEST O DANIEL [facility] [place] [address] * POCT Glucose (07/14/2021 11:09 AM EDT) Glucose, POC 159 65 - 199 mg/dL [facility] Comment: Supplemental ranges: <140 mg/dL before meals <180 mg/dL all other times of the day Blood 07/14/2021 11:0 9 AM EDT 07/14/2021 11:09 AM EDT Basim Barr MD POINT OF CARE TEST O RDERABLES Performing Organization Address [facility] Co de Phone Number [facility] [place] [address] * IR OR VASC Aniogram Image Storage Only (07/14/2021 10:41 AM EDT) Narrative RAD - 07/14/2021 10:41 AM EDT This exam is auto-finalizing. It's purpose is for storage only. Baism Barr MD IMG FILM LIBRARY ORD ERABLES Performing Organization Address [facility] Co de Phone Number [place], [place] * COVID-19 PCR (07/14/2021 10:00 AM EDT) SARS-CoV-2 RNA (Rapid) Not Detected Not Detected [facility] Comment: This result should be interpreted [...] using the Simplexa COVID-19 Direct Assay by [employer] as authorized by the FDA issued Emergency [...] Department of Pathology and Laboratory Medicine at [facility], certified under the Clinical Laboratory Improvement Amendments [...] fact sheets at the following FDA website: https://www.fda.gov/medical-devices/gyvddnwzcyd-auenviy-1023-lqamx-96-ubigzzria- use-a bxqsrnhgyswxi-nelmqzp-spgjyia/asiou-btdjfpukxbz-ivos SARS-CoV-2 Source [employer] [facility] Nasopharyngeal Swab 07/15/19 10:00 AM EDT 07/14/2021 10:43 AM EDT Comment:Symptoms->Surveillan ce Narrative Resulting Agency Comment Spec In Lab Basim Barr MD MICROBIOLOGY - GENER AL ORDERABLES [facility] [place] [address] * POCT Glucose (07/14/2021 7:36 AM EDT) Glucose, POC 174 65 - 199 mg/dL [facility] Comment: Supplemental ranges: <140 mg/dL before meals <180 mg/dL all other times of the day Blood 07/14/2021 7:36 AM EDT 07/14/2021 7:36 AM EDT Basim Barr MD POINT OF CARE TEST O RDERABLES [facility] [place] [address] * Vitamin B12 (07/14/2021 7:16 AM EDT) Pathologist [facility] Vitamin B12 483 232 - 1,245 pg/mL [facility] Blood Venous Draw / Unknown 07/14/2021 7:16 AM EDT 07/14/2021 7:30 AM EDT Narrative Resulting Agency Comment Spec In Lab Sandra Murphy MD CHEMISTRY ORDERABL ES Performing Organization Address City/[facility]/ZIP Co de Phone Number [facility] [place] [address] * (ABNORMAL) Hemogram (07/14/2021 7:16 AM EDT) [facility] White Blood Cell 7.4 4.0 - 9.5 x10(3)/mc L [facility] Red Blood Cell 4.15(L) 4.58 - 5.54 x10(6)/mc L [facility] Hemoglobin 13.0(L) 13.7 - 16.5 g/dL [facility] Hematocrit 39.4(L) 40.5 - 48.5 % [facility] Mean Cell Volume 94.9(H) 82.9 - 93.1 fL [facility] Mean Cell Hemoglobin 31.3 27.5 - 32.1 pg [facility] Mean Cell Hemoglobin Concentration 33.0 32.0 - 35.7 g/dL [facility] Platelet 234 145 - 357 x10(3)/mc L [facility] RDW Standard Deviation 46.5(H) 36.0 - 45.0 fL [facility] RDW coefficient of variation 13.4 11.4 - 13.8 % [facility] Mean Platelet Volume 9.9 7.6 - 12.9 fL [facility] NRBC% auto 0.0 % [facility] NRBC Absolute 0.000 0.000 - 0.000 x10(3)/mc L [facility] Blood 07/14/2021 7:16 AM EDT 07/14/2021 7:20 AM EDT Narrative Resulting Agency Comment Spec In Lab Basim Barr MD HEMATOLOGY ORDERABLE S [facility] [place] [address] * (ABNORMAL) Basic Metabolic Panel (non-fasting) (07/14/2021 7:16 AM EDT) Glucose 184 65 - 199 mg/dL [facility] Comment:Diabetes: >=200 mg/d L plus symptoms Blood Urea Nitrogen 13 10 - 20 mg/dL [facility] Creatinine 0.71(L) 0.80 - 1.50 mg/dL [facility] Sodium 138 135 - 145 mmol/L [facility] Potassium 4.3 3.5 - 5.0 mmol/L [facility] Comment: Please note: ??Patients with WBC >100,000 may have falsely elevated Potassium levels. ??For accurate Potassium quantification in these patients send serum separator tube (gold top) for subsequent determinations. ??Contact the Clinical Chemistry Laboratory if there are any questions. Chloride 103 98 - 107 mmol/L [facility] Carbon Dioxide 22 22 - 31 mmol/L [facility] Anion Gap 13 5 - 15 mmol/L [facility] Calcium 9.0 8.5 - 10.5 mg/dL [facility] Est Glomerular Filtration Rate 93 >=60 mL/min/1. 73 m?? [facility] Comment: This patient? s estimated glomerular filtration rate (eGFR) is between 93 mL/min/1.73 m2 (patients with less muscle mass per kg body weight) and 108 mL/min/1.73 m2 (patients with more muscle mass [...] and symptoms in addition to eGFR. Blood 07/14/2021 7:16 AM EDT 07/14/2021 7:20 AM EDT Narrative Resulting Agency Comment Spec In Lab Basim Barr MD CHEMISTRY ORDERABLES Performing Organization Address City/[facility] Co de Phone Number [facility] [place] [address] * Prealbumin (07/14/2021 7:16 AM EDT) Prealbumin 23 20 - 40 mg/dL [facility] Comment: Prealbumin levels are generally lower in the pediatric population; adult concentrations are usually attained near puberty. Blood 07/14/2021 7:16 AM EDT 07/14/2021 7:20 AM EDT Narrative Resulting Agency Comment Spec In Lab Basim Barr MD CHEMISTRY ORDERABLES Performing Organization Address [facility] Co de Phone Number [facility] [place] [address] * SCAN DOC: IMPLANTABLE DEVICES (07/14/2021 12:00 AM EDT) Unknown MEDIA MGR SCAN EXT O RDR/RSLT documented in this encounter Visit Diagnoses Diagnosis Stenosis of carotid artery, unspecified laterality Pre-op testing Preoperative examination, unspecified History of cerebrovascular accident Transient ischemic attack (TIA), and cerebral infarction without residual deficits History of carotid endarterectomy Other postprocedural status Stenosis of carotid artery, unspecified laterality Diabetes mellitus Type II or unspecified type diabetes mellitus without mention of complication, not stated as uncontrolled Hypertensive disorder Unspecified essential hypertension Hypercholesterolemia Pure hypercholesterolemia documented in this encounter Administered Medications Inactive Administered Medications - up to 3 most recent administrations Medication Order MAR Action Action Date Dose Rate Site acetaminophen (Tylenol) tablet 1,000 mg 1,000 mg, Oral, EVERY 6 HOURS SCHEDULED, First dose on Sat07/14/21 at 1345, Until Discontinued, Maximum dose of acetaminophen is 4000 mg from all sources in 24 hours. When ordered for pain, acetaminophen should be given even when other ordered pain medications are indicated., Routine Given 07/17/2021 5:50 AM EDT 1,000 mg Given 07/16/2021 6:50 PM EDT 1,000 mg Given 07/16/2021 12:10 PM EDT 1,000 mg amLODIPine (Norvasc) tablet 10 mg 10 mg, Oral, DAILY, First dose (after last modification) on Sat07/14/21 at 1445, Until Discontinued, Routine Given 07/17/2021 8:46 AM EDT 10 mg Given 07/16/2021 9:02 AM EDT 10 mg Given 07/15/2021 8:20 AM EDT 10 mg aspirin chewable tablet 650 mg 650 mg, Oral, ONCE, 1 dose, On Sat07/14/21 at 0815, Day of Surgery (Day of Procedure), STAT Given 07/14/2021 8:3 3 AM EDT 650 mg aspirin EC tablet 81 mg 81 mg, Oral, DAILY, First dose on Sat07/14/21 at 1715, Until Discontinued, Routine Given 07/17/2021 8:43 AM EDT 81 mg Given 07/16/2021 9:02 AM EDT 81 mg Given 07/15/2021 8:20 AM EDT 81 mg atorvastatin (Lipitor) tablet 80 mg 80 mg, Oral, EVERY EVENING, First dose on Sat07/14/21 at 1715, Until Discontinued, Routine Given 07/16/2021 4:02 PM EDT 80 mg Given 07/15/2021 5:18 PM EDT 80 mg Given 07/14/2021 4:37 PM EDT 80 mg carvediloL (Coreg) tablet 25 mg 25 mg, Oral, 2 TIMES DAILY WITH MEALS, First dose (after last modification) on Sat07/14/21 at 1500, Until Discontinued, May move up 5pm dose to 2pm on 07/14, STAT Given 07/17/2021 8:46 AM EDT 25 mg Given 07/16/2021 4:02 PM EDT 25 mg Given 07/16/2021 9:05 AM EDT 25 mg ceFAZolin (Ancef) 2 g in dextrose 5% 100 mL infusion 2 g, Intravenous, EVERY 8 HOURS, 3 doses, First dose on Sat07/14/21 at 1300, Last dose on Sat07/15/21 at 0500, Administer over 30 Minutes, Redose after 4 hours., Recovery (Recovery-Hospital Unit), Indication for (Active or Suspected): Prophylaxis New Bag 07/15/2021 5:41 AM EDT 2 g 200 mL/hr New Bag 07/14/2021 8:51 PM EDT 2 g 200 mL/hr New Bag 07/14/2021 1:23 PM EDT 2 g 200 mL/hr clopidogreL (Plavix) tablet 450 mg 450 mg, Oral, ONCE, 1 dose, On Sat07/14/21 at 0815, Day of Surgery (Day of Procedure), STAT Given 07/14/2021 8:3 1 AM EDT 450 mg clopidogreL (Plavix) tablet 75 mg 75 mg, Oral, DAILY, First dose on Sat07/14/21 at 1715, Until Discontinued, Routine Given 07/17/2021 8:43 AM EDT 75 mg Given 07/16/2021 9:09 AM EDT 75 mg Given 07/15/2021 8:20 AM EDT 75 mg dextrose 10% infusion 250 mL, at 1,000 mL/hr, Intravenous, EVERY 30 MIN PRN, Starting on Sat07/14/21 at 1617, Until Sat07/17/21 at 1838, For BG 50-70 mg/dL: Oral treatment preferred: [...] Intramuscular, EVERY 30 MIN PRN, Starting on Sat07/14/21 at 1617, Until Sat07/17/21 at 1838, Low blood sugar, For BG 50-70 mg/dL: [...] Buccal, EVERY 30 MIN PRN, Starting on Sat07/14/21 at 1617, Until Sat07/17/21 at 1838, Low blood sugar, For BG 50-70 mg/dL: [...] Intravenous, EVERY 1 HOUR PRN, Starting on Sat07/14/21 at 1124, Until Sat07/14/21 at 1445, High Blood Pressure, for blood pressure > 160 for maximum of 2 doses then daniela HIGHTOWER, Use if 2 doses of labetalol ineffective in achieving goal., Routine Given 07/14/2021 1:08 PM EDT 10 mg Given 07/14/2021 12:04 PM EDT 10 mg hydrALAZINE (Apresoline) (20 mg/mL) injection 20 mg 20 mg, Intravenous, EVERY 1 HOUR PRN, Starting on Sat07/14/21 at 1444, Until Sat07/14/21 at 1621, High Blood Pressure, for blood pressure > 160 for maximum of 2 doses then daniela HIGHTOWER, Use if 2 doses of labetalol ineffective in achieving goal., Routine Given 07/14/2021 2:50 PM EDT 20 mg hydrALAZINE (Apresoline) (20 mg/mL) injection 20 mg 20 mg, Intravenous, EVERY 1 HOUR PRN, Starting on Sat07/14/21 at 1621, Until Sat07/17/21 at 1838, High Blood Pressure, fpr B{ >16-, Use if 2 doses of labetalol ineffective in achieving goal., Routine Given 07/16/2021 2:19 AM EDT 20 mg Given 07/14/2021 9:11 PM EDT 20 mg Given 07/14/2021 5:35 PM EDT 20 mg insulin lispro (HumaLOG;Admelog) (100 unit/mL) subcutaneous injection vial 1-4 Units 1-4 Units, Subcutaneous, 4 TIMES DAILY BEFORE MEALS & NIGHTLY, First dose on Sat07/14/21 at 1145, Until Discontinued, CORRECTION BOLUS [1-4 Units] Sensitive [...] 240 mg/dL in 2 hours., Routine Given 07/17/2021 8:29 AM EDT 1 Units Given 07/16/2021 9:51 PM EDT 2 Units Given 07/16/2021 4:02 PM EDT 1 Units Ab dominal Tissue labetaloL (Normodyne) (5 mg/mL) injection solution 10 mg 10 mg, Intravenous, EVERY 1 HOUR PRN, Starting on Sat07/14/21 at 1124, Until Sat07/14/21 at 1621, High Blood Pressure, for SBP > 160, hold for HR < 60 for maximum of 2 doses, then daniela NYE, May repeat 10 mg in 15 minutes once if SBP goal not achieved, Routine Given 07/14/2021 2:12 PM EDT 10 mg Given 07/14/2021 11:44 AM EDT 10 mg labetaloL (Normodyne) (5 mg/mL) injection solution 20 mg 20 mg, Intravenous, EVERY 1 HOUR PRN, Starting on Sat07/14/21 at 1621, Until Sat07/17/21 at 1838, High Blood Pressure, for SBP > 160, hold for HR < 60, May repeat 10 mg in 15 minutes once if SBP goal not achieved, Routine Given 07/16/2021 4:06 AM EDT 20 mg Given 07/16/2021 3:00 AM EDT 20 mg Given 07/14/2021 8:29 PM EDT 20 mg lactated ringers infusion 100 mL/hr, Intravenous, CONTINUOUS, Starting on Sat07/14/21 at 1145, Until Sat07/14/21 at 2144 New Bag 07/14/2021 12:11 PM EDT 100 mL/hr 100 mL/hr lisinopriL (Zestril) tablet 10 mg 10 mg, Oral, DAILY, First dose on Sat07/15/21 at 0900, Until Discontinued, Routine Given 07/16/2021 4:06 AM EDT 10 mg Given 07/15/2021 8:20 AM EDT 10 mg lisinopriL (Zestril) tablet 10 mg 10 mg, Oral, ONCE, 1 dose, On Sat07/16/21 at 0715, Routine Given 07/16/2021 9:02 AM EDT 10 mg lisinopriL (Zestril) tablet 20 mg 20 mg, Oral, DAILY, First dose (after last modification) on Sat07/17/21 at 0900, Until Discontinued, Routine Given 07/17/2021 8:46 AM EDT 20 mg niCARdipine (Cardene) (0.2 mg/mL) in sodium chloride 200 mL infusion 0-15 mg/hr (0-75 mL/hr), Intravenous, CONTINUOUS, Starting on Sat07/14/21 at 2200, Until Sat07/16/21 at 0834, Titrate to SBP greater than 90 and less than 150 mmHg. Start at 5 mg/hour, titrate to maintain target SBP, adjust infusion rate by 2.5 mg/hour every 5 minutes to a maximum of 15 mg/hour. Rotate IV site every 12 hours, Routine Rate/Dose Change 07/15/2021 8:15 AM EDT 2.5 mg/hr 12.5 mL/hr Rate/Dose Change 07/15/2021 8:00 AM EDT 5 mg/hr 25 mL/h r New Bag 07/15/2021 3:19 AM EDT 7.5 mg/hr 37.5 mL/hr ondansetron (pf) (Zofran) (2 mg/mL) injection 4-8 mg 4-8 mg, Intravenous, EVERY 8 HOURS PRN, Starting on Sat07/14/21 at 1617, Until Sat07/17/21 at 1838, Nausea, Start with 4mg and if ineffective in 30 minutes, give an additional 4mg Given 07/14/2021 8:38 PM EDT 4 mg ondansetron (Zofran) tablet 4-8 mg 4-8 mg, Oral, EVERY 8 HOURS PRN, Starting on Sat07/14/21 at 1617, Until Sat07/17/21 at 1838, Nausea, Vomiting, If multiple antiemetics are ordered, use ondansetron first. PO Preferred. If patient unable to take PO, may give IV if ordered. May repeat times one in 45 minutes if ineffective. , Routine oxyCODONE (Roxicodone) tablet 5-10 mg 5-10 mg, Oral, EVERY 4 HOURS PRN, Starting on Sat07/14/21 at 1124, Until Sat07/17/21 at 1838, Pain, For Moderate Pain (4-6), Initial dose 5 mg. If pain control not adequate in 60 minutes, give additional 5 mg., Routine Given 07/16/2021 9:57 PM EDT 5 mg Given 07/16/2021 9:02 AM EDT 5 mg Given 07/15/2021 7:31 PM EDT 5 mg documented in this encounter Active and Recently Administered Medications Times are shown in EDT. Scheduled Medication Order 07/15/2021 07/16/2021 07/17/2021 acetaminophen (Tylenol) tablet 1,000 mg 1,000 mg, Oral, EVERY 6 HOURS SCHEDULED, First dose on Sat07/14/21 at 1345, Until Discontinued, Maximum dose of acetaminophen is 4000 mg from all sources in 24 hours. When ordered for pain, acetaminophen should be given even when other ordered pain medications are indicated., Routine 0034 (Given - Provider: Deloris Richey RN)0541 (Given - Provider: Honey Farias RN)1142 (Given - Provider: Tonja Coe RN)1718 (Given - Provider: Tonja Coe RN) 0000 (Not Given - Provider: Honey Farias RN - Reason: Patient/family refused - Comment: sleeping does not want to be woken for it)0534 (Given - Provider: Honey Farias RN)1210 (Given - Provider: Tonja Coe RN)1850 (Given - Provider: Tonja Coe RN) 0000 (Not Given - Provider: Kecia Reynolds RN - Reason: Patient/family refused)0550 (Given - Provider: Kecia Reynolds RN)1200 (Not Given - Provider: Inga Joel RN - Reason: Patient/family refused) amLODIPine (Norvasc) tablet 10 mg 10 mg, Oral, DAILY, First dose (after last modification) on Sat07/14/21 at 1445, Until Discontinued, Routine 0820 (Given - Provider: Tonja Coe RN) 0902 (Given - Provider: Tonja Coe RN) 0846 (Given - Provider: Inga Joel RN) aspirin EC tablet 81 mg 81 mg, Oral, DAILY, First dose on Sat07/14/21 at 1715, Until Discontinued, Routine 0820 (Given - Provider: Tonja Coe RN) 0902 (Given - Provider: Tonja Coe RN) 0843 (Given - Provider: Inga Joel RN) atorvastatin (Lipitor) tablet 80 mg 80 mg, Oral, EVERY EVENING, First dose on Sat07/14/21 at 1715, Until Discontinued, Routine 1718 (Given - Provider: Tonja Coe RN) 1602 (Given - Provider: Tonja Coe RN) carvediloL (Coreg) tablet 25 mg 25 mg, Oral, 2 TIMES DAILY WITH MEALS, First dose (after last modification) on Sat07/14/21 at 1500, Until Discontinued, May move up 5pm dose to 2pm on 07/14, STAT 0819 (Given - Provider: Tonja Coe RN)1718 (Given - Provider: Tonja Coe RN) 0905 (Given - Provider: Tonja Coe RN)1602 (Given - Provider: Tonja Coe RN) 0846 (Given - Provider: Inga Joel RN) ceFAZolin (Ancef) 2 g in dextrose 5% 100 mL infusion (COMPLETED) 2 g, Intravenous, EVERY 8 HOURS, 3 doses, First dose on Sat07/14/21 at 1300, Last dose on Sat07/15/21 at 0500, Administer over 30 Minutes, Redose after 4 hours., Recovery (Recovery-Hospital Unit), Indication for (Active or Suspected): Prophylaxis 0541 (New Bag - Provider: Honey Farias RN)0611 (Stopped - Provider: Honey Farias RN) clopidogreL (Plavix) tablet 75 mg 75 mg, Oral, DAILY, First dose on Sat07/14/21 at 1715, Until Discontinued, Routine 0820 (Given - Provider: Tonja Coe RN) 0909 (Given - Provider: Tonja Coe RN) 0843 (Given - Provider: Inga Joel, AYE) insulin lispro (HumaLOG;Admelog) (100 unit/mL) subcutaneous injection vial 1-4 Units(Linked Group 1) 1-4 Units, Subcutaneous, 4 TIMES DAILY BEFORE MEALS & NIGHTLY, First dose on Sat07/14/21 at 1145, Until Discontinued, CORRECTION BOLUS [1-4 Units] Sensitive [...] > 240 mg/dL in 2 hours., Routine 0817 (Given - Provider: Tonja Coe RN)1148 (Given - Provider: Tonja Coe RN)1719 (Given - Provider: Tonja Coe RN)2102 (Given - Provider: Honey Farias RN) 0905 (Not Given - Provider: Tonja Coe RN - Reason: Order parameters not met)1130 (Not Given - Provider: Tonja Coe RN - Reason: Order parameters not met)1602 (Given - Provider: Tonja Coe RN)2151 (Given - Provider: Kecia Reynolds RN) 0829 (Given - Provider: Inga Joel RN)1130 (Not Given - Provider: Inga Joel RN - Reason: Contraindicated - Comment: pt going home)1630 (Due) lisinopriL (Zestril) tablet 10 mg (CANCELED) 10 mg, Oral, DAILY, First dose on Sat07/15/21 at 0900, Until Discontinued, Routine 0820 (Given - Provider: Tonja Coe, AYE) 0406 (Given - Provider: Honey Farias RN - Comment: spoke with provider to give 0900 dose now) lisinopriL (Zestril) tablet 10 mg (COMPLETED) 10 mg, Oral, ONCE, 1 dose, On 07/16/21 at 0715, Routine 0902 (Given - Provider: Tonja Coe, AYE) lisinopriL (Zestril) tablet 20 mg 20 mg, Oral, DAILY, First dose (after last modification) on 07/17/21 at 0900, Until Discontinued, Routine 0846 (Given - Provid er: Inga Joel RN) Continuous Medication Order 07/15/2021 07/16/2021 07/17/2021 niCARdipine (Cardene) (0.2 mg/mL) in sodium chloride 200 mL infusion (CANCELED) 0-15 mg/hr (0-75 mL/hr), Intravenous, CONTINUOUS, Starting on Sat07/14/21 at 2200, Until Sat07/16/21 at 0834, Titrate to SBP greater than 90 and less than 150 mmHg. Start at 5 mg/hour, titrate to maintain target SBP, adjust infusion rate by 2.5 mg/hour every 5 minutes to a maximum of 15 mg/hour. Rotate IV site every 12 hours, Routine 0319 (New Bag - Provider: Chayo Watkins RN)0800 (Rate/Dose Change - Provider: Tonja Coe, AYE)0815 (Rate/Dose Change - Provider: Tonja Coe, AYE)0900 (Stopped - Provider: Tonja Coe RN) PRN Medication Order 07/15/2021 07/16/2021 07/17/2021 dextrose 10% infusion(Linked Group 2) 250 mL, at 1,000 mL/hr, Intravenous, EVERY 30 MIN PRN, Starting on Sat07/14/21 at 1617, Until Sat07/17/21 at 1838, For BG 50-70 mg/dL: Oral treatment preferred: [...] Intramuscular, EVERY 30 MIN PRN, Starting on Sat07/14/21 at 1617, Until Sat07/17/21 at 1838, Low blood sugar, For BG 50-70 mg/dL: [...] Buccal, EVERY 30 MIN PRN, Starting on Sat07/14/21 at 1617, Until Sat07/17/21 at 1838, Low blood sugar, For BG 50-70 mg/dL: [...] grams.), Routine hydrALAZINE (Apresoline) (20 mg/mL) injection 20 mg 20 mg, Intravenous, EVERY 1 HOUR PRN, Starting on Sat07/14/21 at 1621, Until Sat07/17/21 at 1838, High Blood Pressure, fpr B{ >16-, Use if 2 doses of labetalol ineffective in achieving goal., Routine 0219 (Given - Provider: Honey Farias RN) labetaloL (Normodyne) (5 mg/mL) injection solution 20 mg 20 mg, Intravenous, EVERY 1 HOUR PRN, Starting on Sat07/14/21 at 1621, Until Sat07/17/21 at 1838, High Blood Pressure, for SBP > 160, hold for HR < 60, May repeat 10 mg in 15 minutes once if SBP goal not achieved, Routine 0300 (Given - Provider: Honey Farias RN)0406 (Given - Provider: Honey Farias RN) ondansetron (pf) (Zofran) (2 mg/mL) injection 4-8 mg(Linked Group 3) 4-8 mg, Intravenous, EVERY 8 HOURS PRN, Starting on Sat07/14/21 at 1617, Until Sat07/17/21 at 1838, Nausea, Start with 4mg and if ineffective in 30 minutes, give an additional 4mg ondansetron (Zofran) tablet 4-8 mg(Linked Group 3) 4-8 mg, Oral, EVERY 8 HOURS PRN, Starting on Sat07/14/21 at 1617, Until Sat07/17/21 at 1838, Nausea, Vomiting, If multiple antiemetics are ordered, use ondansetron first. PO Preferred. If patient unable to take PO, may give IV if ordered. May repeat times one in 45 minutes if ineffective. , Routine oxyCODONE (Roxicodone) tablet 5-10 mg 5-10 mg, Oral, EVERY 4 HOURS PRN, Starting on Sat07/14/21 at 1124, Until Sat07/17/21 at 1838, Pain, For Moderate Pain (4-6), Initial dose 5 mg. If pain control not adequate in 60 minutes, give additional 5 mg., Routine 1930 (Given - Provider: Honey Farias RN) 901 (Given - Provider: Tonja Coe, AYE)2156 (Given - Provider: Kecia Reynolds RN) Linked Groups Order Group 1: POCT Fingerstick Glucose (CANCELED) Routine, 4 TIMES DAILY BEFORE MEALS & AT BEDTIME, First occurrence on Sat07/14/21 at 1700, Until Specified, Consider choosing FOUR TIMES A DAY BEFORE MEALS AND AT BEDTIME as frequency for: Patients who have good hypoglycemia awareness: -Patients who are eating meals during the day and sleeping at night -Patient who are otherwise stable And insulin lispro (HumaLOG;Admelog) (100 unit/mL) subcutaneous injection vial 1-4 UnitsJump to med 1-4 Units, Subcutaneous, 4 TIMES DAILY BEFORE MEALS & NIGHTLY, First dose on Sat07/14/21 at 1145, Until Discontinued, CORRECTION BOLUS [1-4 Units] Sensitive [...] 240 mg/dL in 2 hours., Routine Group 2: glucose (Glutose) 40% oral geLJump to med 15-30 g of glucose, Buccal, EVERY 30 MIN PRN, Starting on Sat07/14/21 at 1617, Until Sat07/17/21 at 1838, Low blood sugar, For BG 50-70 mg/dL: [...] Intravenous, EVERY 30 MIN PRN, Starting on Sat07/14/21 at 1617, Until Sat07/17/21 at 1838, For BG 50-70 mg/dL: Oral treatment preferred: [...] Intramuscular, EVERY 30 MIN PRN, Starting on Sat07/14/21 at 1617, Until Sat07/17/21 at 1838, Low blood sugar, For BG 50-70 mg/dL: [...] duration of the active insulin., Routine Group 3: ondansetron (Zofran) tablet 4-8 mgJump to med 4-8 mg, Oral, EVERY 8 HOURS PRN, Starting on Sat07/14/21 at 1617, Until Sat07/17/21 at 1838, Nausea, Vomiting, If multiple antiemetics are ordered, use ondansetron first. PO Preferred. If patient unable to take PO, may give IV if ordered. May repeat times one in 45 minutes if ineffective. , Routine Or ondansetron (pf) (Zofran) (2 mg/mL) injection 4-8 mgJump to med 4-8 mg, Intravenous, EVERY 8 HOURS PRN, Starting on Sat07/14/21 at 1617, Until Sat07/17/21 at 1838, Nausea, Start with 4mg and if ineffective in 30 minutes, give an additional 4mg documented in this encounter Care Teams Electrolysis Needle Operator Relationship Specialty Start Date End Date Alo Carey DO [address] [place] [address] [place] [id number] PCP - General Internal Medicine 08/31/20 07/03/23 documented as of this encounter
--- OUTSIDE RECORDS SUMMARY | 2023-10-06 00:41 | XMS_ITS | Encounter Summary ---
Author Organization [facility] Address [facility] [place] [address] Care Team Providers Care Medical Practice Manager Name Role Phone YungAlo santiago Lon RUTHERFORD Primary Care Provider [phone] Reason for Visit * Auth/Cert Specialty Diagnoses [...] Expiration Date Visits Re quested Visits Authorized [id number] 1 1 Encounter Details Date Type Department Care Team (Late st Contact Info) Description 07/14/2021 8:30 AM EDT - 07/14/2021 12:00 PM EDT [place] [address] Basim Barr MD [facility] [place] [address] @TRANSCATH INTRAVASCULAR STENT,CAROTID,PERC,W\EM BOLIC PROT. (WRVU 17.75) Social History Tobacco Use Types Packs/Day Years [...] Sign Reading Time Taken Comments Blood Pressure 163/81 07/14/2021 12:00 PM EDT Pulse 59 07/14/2021 12:00 PM EDT Temperature 35.6 ??C (96.1 ??F) 07/14/2021 1 1:15 AM EDT Respiratory Rate 12 07/14/2021 12:0 0 PM EDT Oxygen Saturation 96% 07/14/2021 12: 00 PM EDT Inhaled Oxygen Concentration - - Weight 106.2 kg (234 lb 3.2 oz) 07/14/2021 7:27 AM EDT Height 180.3 cm (5' 11) [...] R TCAR performed with predilation to 4.5mm. [id number] Enroute stent placed and post- dilated to [...] RAD/ONC, TREATMENT Radiation Oncology at [facility] Arrive at: [facility] door at end of [place] [address] 07/27/2021 2:45 PM STJ RAD/ONC, TREATMENT Radiation Oncology at [facility] Arrive at: [facility] door at end of [place] [phone] 07/28/2021 12:15 PM STJ RAD/ONC, TREATMENT Radiation Oncology at [facility] Arrive at: [facility] door at end of [place] [phone] 08/01/2021 12:45 PM STJ RAD/ONC, TREATMENT Radiation Oncology at [facility] door at end of [place] [phone] 08/02/2021 12:45 PM STJ RAD/ONC, TREATMENT Radiation Oncology at [facility] door at end [place] [phone] 08/03/2021 12:45 PM STJ RAD/ONC, TREATMENT Radiation Oncology at [facility] door at end [place] [phone] 08/04/2021 1:00 PM STJ RAD/ONC, TREATMENT Radiation Oncology at [facility] Arrive at: [facility] door at end of [place] [phone] 08/07/2021 12:45 PM STJ RAD/ONC, TREATMENT Radiation Oncology at [facility] Arrive at: [facility] door at end of hallway [phone] 08/08/2021 12:45 PM STJ RAD/ONC, TREATMENT Radiation Oncology at [facility] Arrive at: [facility] door at end of hallway [phone] 08/09/2021 12:45 PM STJ RAD/ONC, TREATMENT Radiation Oncology at [facility] Arrive at: [facility] door at end of hallway [phone] 08/10/2021 12:45 PM STJ RAD/ONC, TREATMENT Radiation Oncology at [facility] Arrive at: [facility] door at end of hallway [phone] 08/11/2021 1:00 PM STJ RAD/ONC, TREATMENT Radiation Oncology at [facility] Arrive at: [facility] door at end of hallway [phone] 08/14/2021 12:45 PM STJ RAD/ONC, TREATMENT Radiation Oncology at [facility] Arrive at: [facility] door at end of hallway [phone] 08/15/2021 12:45 PM STJ RAD/ONC, TREATMENT Radiation Oncology at [facility] Arrive at: [facility] door at end of hallway [phone] 08/16/2021 12:45 PM STJ RAD/ONC, TREATMENT Radiation Oncology at [facility] Arrive at: [facility] door at end of hallway [phone] 08/17/2021 12:45 PM STJ RAD/ONC, TREATMENT Radiation Oncology at [facility] Arrive at: [facility] door at end of hallway [phone] 08/18/2021 12:45 PM STJ RAD/ONC, TREATMENT Radiation Oncology at [facility] Arrive at: [facility] door at end of hallway [phone] 08/21/2021 12:45 PM STJ RAD/ONC, TREATMENT Radiation Oncology at [facility] Arrive at: [facility] door at end of hallway [phone] 08/22/2021 12:45 PM STJ RAD/ONC, TREATMENT Radiation Oncology at [facility] Arrive at: [facility] door at end of hallway [phone] 08/23/2021 12:45 PM STJ RAD/ONC, TREATMENT Radiation Oncology at [facility] Arrive at: [facility] door at end of hallway [phone] 08/24/2021 12:45 PM STJ RAD/ONC, TREATMENT Radiation Oncology at [facility] Arrive at: [facility] door at end of hallway [phone] 08/25/2021 12:45 PM STJ RAD/ONC, TREATMENT Radiation Oncology at [facility] Arrive at: [facility] door at end of hallway [phone] 08/28/2021 12:45 PM STJ RAD/ONC, TREATMENT Radiation Oncology at [facility] Arrive at: [facility] door at end of hallway [phone] 08/29/2021 12:45 PM STJ RAD/ONC, TREATMENT Radiation Oncology at [facility] Arrive at: [facility] door at end of hallway [phone] 08/30/2021 12:45 PM STJ RAD/ONC, TREATMENT Radiation Oncology at [facility] Arrive at: [facility] door at end of hallway [phone] 08/31/2021 12:45 PM STJ RAD/ONC, TREATMENT Radiation Oncology at [facility] Arrive at: [facility] door at end of hallway [phone] 09/01/2021 12:45 PM STJ RAD/ONC, TREATMENT Radiation Oncology at [facility] Arrive at: [facility] door at end of hallway [phone] 09/05/2021 12:45 PM STJ RAD/ONC, TREATMENT Radiation Oncology at [facility] door at end of hallway [phone] Future Orders Complete By Expires Carotid Duplex, Bilateral [VAS1 Custom] 08/16/2021 07/16/2022 Process Instructions: There is no in-house vascular rd lab technician available on weeknights (5pm-8am), weekends, or holidays. IF THIS IS A REQUEST FOR AN EMERGENT STUDY DURING THOSE HOURS, please have the senior provider responsible for the patient page the Vascular Surgery Fellow/Senior Resident electronics parts sales representative to discuss options. Scheduling Instructions: Questions: Indication for study/signs & symptoms: s/p R TCAR Question to be answered: patency Preferred [facility] [facility] Carotid Duplex, Bilateral [VAS1 Custom] 01/16/2022 07/16/2022 Process Instructions: There is no in-house vascular rd lab technician available on weeknights (5pm-8am), weekends, or holidays. IF THIS IS A REQUEST FOR AN EMERGENT STUDY DURING THOSE HOURS, please have the senior provider responsible for the patient page the Vascular Surgery Fellow/Senior Resident electronics parts sales representative to discuss options. Scheduling Instructions: Questions: Indication for study/signs & symptoms: s/p R TCAR Question to be answered: patency Preferred location?: [facility] XR Neck Soft Tissue (Generic) [07689 Custom] 01/16/2022 07/16/2022 Process Instructions: Scheduling Instructions: Questions: Where will study be performed?: [facility] Radiology Portable exam?: Reason for exam and clinical history: s/p R TCAR, assess for stent fracture Clinical information / fernando questions for radiologist: Stat read required?: Date of injury if applicable: Requested Time: Anticoagulation & Antiplatelet: Anticoagulation: not indicated Antiplatelet: Agent: ASA, Plavix Indication:ASCVD Intended Duration: terminal make up operator For questions regarding these medications, please contact: [...] a dye used during vascular procedure at [facility] in [place]: shaking Has tolerated MRI and CT contrast. [...] or questions please call our office at [phone] For issues on weeknights after 5pm and weekends please call [phone] and ask for the Vascular Fellow electronics parts sales representative. documented in this encounter Discharge Instructions * Patient Instructions* Marga Joseph, ARNOLD - 07/14/2021 1:33 PM EDT You were [...] or questions please call our office at [phone] For issues on weeknights after 5pm and weekends please call [phone] and ask for the Vascular Fellow electronics parts sales representative. documented in this encounter Medications at Time [...] normal. Extremities: wwp Labs: Recent Labs 07/14/21 07 WBC 7.4 HGB 13.0* HCT 39.4* PLATELET 234 Recent Labs 07/14/2116 NA 138 K 4.3 CL 103 CO2 [...] PO hydration Anticoagulation: N/A Antiplatelet: ASA, plavix, long term Lexi Walker MD 07/16/2021 Pager: [phone] * Honey Farias RN - 07/16/2021 5:39 [...] Continuing to monitor. Incisions remain well approximated, QIANA, no drainage, no signs of infection. PLAN [...] Weight: 106.2 kg (234 lb 3.2 oz) (07/14/21726) BMI (Calculated): 32.66 BMI Classification: Obese Intake/Output Summary (Last 24 hours) at 07/15/2021 09 Last data filed at 07/15/2021 0541 Gross [...] to void Anticoagulation: N/A Antiplatelet: ASA, plavix, long term Lexi Walker MD 07/15/2021 Pager: [phone] * Honey Farias RN - 07/15/2021 3:10 AM EDT Tha was moved into PCU around 0 after having severe symptomatic hypertension that was [...] change. PRN ZOfran 4mg given IV. 4W Cattle Farmer at bedside. MD Smallwood was made aware and came to bedside. Patient to be transferred to higher level of care for BP control with Nicardipine gtt. 2110~ Hydralazine 20mg given for BP 165/75 2132~ BP 133/66, HR91 2305~ Nicardipine gtt started at 5mg/hr for BP 158/81 by 4W RN Cattle Farmer, to titrate accordingly. MD Smallwood was paged and verified if the witt should still be removed at 12midnight considering that patient will be moved to PCU, awaiting call back for close monitoring. 0254~ report given to BAGGAGE PORTER HEAD Honey. Patient was transferred to PCU 428 with [...] pain with oxycodone and tylenol for headache. 5870-5477: Patient ok 'd to go to floor, BP 140's, report called to 4 west, finger stick 114. * Floridalma Davis RN - 07/14/2021 11:54 AM EDT 1145- RN Break Coverage, Labetalol & Hydralazine given for [place] pressures in 180's * Taylor Rivera RN [...] ??? Colon adenocarcinoma 2009 recieved chemo in [place] ??? Coronary artery disease ??? Coronary artery [...] 12.15) performed by Cayetano Engle MD at [facility] BEDS AT THE [facility] MAIN OR ??? PRO TOTAL HIP ARTHROPLASTY Left 10/10/2020 TOTAL HIP ARTHROPLASTY - POSTERIOR (WRVU 20.72) performed by Ismael Wu MD at [facility] MAIN OR Functional Status/Social Hx: Lives at [...] to proceed. Charleen Madera Vascular Surgery Pager #[phone] documented in this encounter Procedure Notes * Jared Melvin MD - 07/14/2021 10:56 AM EDT NEURODIAGNOSTIC LABORATORY [facility] INTRAOPERATIVE MONITORING REPORT Name: Tha Sadler : 1950 Date of Surgery: 07/14/2021 Surgeon(s): Basim Barr MD; Wojciech Madera MD Surgical Procedure: right trans-carotid arterial revascularization (TCAR) Monitoring Procedure: Intraoperative scalp EEG monitoring and bilateral median nerve somatosensory evoked potentials (SSEPs). CPT Codes: 53982 (EEG), 05910 (upper SSEP bilateral), 95591 (IOM, 5 units), 93763 (IOM, 1 unit). Intraoperative neurophysiologic monitoring was [...] COVID test: Lab Results Component Value Date [id number] Not Detected 07/14/2021 Present on Admission: ??? [...] care provider on file: Alo Carey DO [phone] Pharmacy: [id number] AT [facility] & [address] [phone] Advance Care Planning: Attempt Cardiopulmonary Resuscitation - Inpatient <no information> -Advanced Directive: No, declines Current Functional Ability: Assistive Equipment and Assistive Person Functional Status Prior to Admission: Assistive Equipment Home Environment: Others in the home: sibling(s). Current Living Arrangements: home/apartment/condo. Accessibility Concerns:no concerns. Current DME: walker - rolling [address] [facility] [address] Social & Family Supports: All names listed below confirmed with patient as current and correct Extended Emergency Contact Information Primary Emergency Contact: NUPUR DEGROOT Address: [address] [place] [address] [facility] Mobile Relation: Significant Other Secondary Emergency [...] via car when medically ready. Registered Nurse Clinical Project Coordinator / Investment Accounting Clerk will continue to follow patient???s progress and remain available if situation changes for coordination of care, psychosocial support and/or discharge planning. Office of Care Management Gissel SANTOS RN Phone: [phone] Pager: [phone] * Plan of Care - Charlotte Sun [...] Diet advanced * Op Note - Wojciech aMdera MD - 07/14/2021 11:16 AM EDT [facility] [place] Patient Name: Tha Sadler : [id number] MR#: [id number] Case Date: 07/14/2021 Surgeon: Surgeon(s) and Role: [...] imaging. R TCAR performed with predilation to 4.5mm.73m06hs Enroute stent placed and post-dilated to 5mm. [...] was exchanged for the Enroute Neuroprotection System (AIRFIELD DEFENCE GUARD) arterial sheath. After confirming appropriate position, this [...] a 4.5x30mm angioplasty balloon. The Enroute stent ([id number]) was then deployed. Post-dilation was performed with [...] Implant Name Type Inv. Item Serial No. Turkey Roll Maker Lot No. LRB No. Used Action SYSTEM STENT ENROUTE [id number] RX NIT ([id number]) (AUTOREQ) - [id number] IMPLANTS SYSTEM STENT ENROUTE [id number] RX NIT ([id number]) (AutoReq) [facility] [id number] Right 1 Implanted Associated attestation - Basim [...] AM EDT Tech [place] [address] Giacomo Queen 10/11/2023 11:15 AM EDT Office [place] [address] Basim Barr MD [facility] [place] [address] 10/18/2023 9:00 AM EDT Office Visit Hematology/Oncology at [address] [phone] Cl Hess MD [facility] [place] [address] Yessi Renee, [address] HEMATOLOGY AND ONCOLOGY [place], [place] [address] [phone] 10/18/2023 9:30 AM EDT Infusion Hematology Oncology at [address] [phone] 10/24/2023 9:30 AM EDT Scheduled View Only Radiation Oncology at [address] [phone] Jeronimo Bowen [place] 10/24/2023 10:00 AM EDT Office Visit Radiation Oncology at [address] [phone] Bigg Peters MD [address] [place] [address] DR RADIATION ONCOLOGY [place], [place] [phone] 11/01/2023 9:00 AM EDT Office Visit Hematology/Oncology at [address] [phone] Cl Hess MD [facility] [place] [address] Yessi Renee, [address] HEMATOLOGY AND ONCOLOGY [place], [place] [address] 11/01/2023 9:30 AM EDT Infusion Hematology Oncology at [address] [phone] 12/24/2023 1:00 PM EDT TH Visit (TeleHealth) Radiation Oncology at [address] [phone] Ping Moore PA [facility] DR HEMATOLOGY [place] [address] documented as of this encounter Procedures Procedure [...] Exploration Not Followed By Surg Neck Artery ([id number]) 07/14/2021 8:42 AM EDT Stenosis of carotid artery, unspecified laterality Pre-op testing Place Transcatheter Stent, Cca W Embolic Ect ([id number]) 07/14/2021 8:42 AM EDT Stenosis of carotid [...] Text Report Department: Vascular Surgery Lab Patient: [id number] (JAIME SADLERIP) CPT: 51000 Referring Physician: AL HUERTA ?? Phone: Indications: [...] EDT Al Huerta APRN VASCULAR ORDERABLES VASCUBASE * POCT Glucose (07/17/2021 8:07 AM EDT) Glucose, POC 151 65 - 199 mg/dL [facility] Comment: Supplemental ranges: <140 mg/dL before meals <180 mg/dL all other times of the day Blood 07/17/2021 8:07 AM EDT 07/17/2021 8:07 AM EDT Basim Barr MD POINT OF CARE TEST O DANIEL Performing Organization Address City/[facility]/ZIP Co de Phone Number [facility] [place] [address] * (ABNORMAL) POCT Glucose (07/16/2021 9:35 PM EDT) Glucose, POC 224(H) 65 - 199 mg/dL [facility] Comment: Supplemental ranges: <140 mg/dL before meals <180 mg/dL all other times of the day Blood 07/16/2021 9:35 PM EDT 07/16/2021 9:35 PM EDT Basim Barr MD POINT OF CARE TEST O DANIEL Performing Organization Address [facility]/ZIP Co de Phone Number [facility] [place] [address] * POCT Glucose (07/16/2021 3:51 PM EDT) Glucose, POC 164 65 - 199 mg/dL [facility] Comment: Supplemental ranges: <140 mg/dL before meals <180 mg/dL all other times of the day Blood 07/16/2021 3:51 PM EDT 07/16/2021 3:51 PM EDT Basim Barr MD POINT OF CARE TEST O RDERAWILLY Performing Organization Address City/[facility]/ZIP Co de Phone Number [facility] [place] [address] * POCT Glucose (07/16/2021 12:00 PM EDT) Glucose, POC 147 65 - 199 mg/dL [facility] Comment: Supplemental ranges: <140 mg/dL before meals <180 mg/dL all other times of the day Blood 07/16/2021 12:0 0 PM EDT 07/16/2021 12:00 PM EDT Basim Barr MD POINT OF CARE TEST O DANIEL Performing Organization Address City/[facility]/ZIP Co de Phone Number [facility] [place] [address] * POCT Glucose (07/16/2021 7:51 AM EDT) Glucose, POC 150 65 - 199 mg/dL [facility] Comment: Supplemental ranges: <140 mg/dL before meals <180 mg/dL all other times of the day Blood 07/16/2021 7:51 AM EDT 07/16/2021 7:51 AM EDT Basim Barr MD POINT OF CARE TEST O DANIEL Performing Organization Address [facility]/ZIP Co de Phone Number [facility] [place] [address] * POCT Glucose (07/15/2021 8:59 PM EDT) Glucose, POC 197 65 - 199 mg/dL [facility] Comment: Supplemental ranges: <140 mg/dL before meals <180 mg/dL all other times of the day Blood 07/15/2021 8:59 PM EDT 07/15/2021 8:59 PM EDT Basim Barr MD POINT OF CARE TEST O DANIEL [facility] [place] [address] * POCT Glucose (07/15/2021 3:56 PM EDT) Glucose, POC 197 65 - 199 mg/dL [facility] Comment: Supplemental ranges: <140 mg/dL before meals <180 mg/dL all other times of the day Blood 07/15/2021 3:56 PM EDT 07/15/2021 3:56 PM EDT Basim Barr MD POINT OF CARE TEST O DANIEL Performing Organization Address City/[facility] Co de Phone Number [facility] [place] [address] * (ABNORMAL) POCT Glucose (07/15/2021 11:46 AM EDT) Glucose, POC 203(H) 65 - 199 mg/dL [facility] Comment: Supplemental ranges: <140 mg/dL before meals <180 mg/dL all other times of the day Blood 07/15/2021 11:4 6 AM EDT 07/15/2021 11:46 AM EDT Basim Barr MD POINT OF CARE TEST O DANIEL Performing Organization Address [facility]/ZIP Co de Phone Number [facility] [place] [address] * POCT Glucose (07/15/2021 8:09 AM EDT) Glucose, POC 175 65 - 199 mg/dL [facility] Comment: Supplemental ranges: <140 mg/dL before meals <180 mg/dL all other times of the day Blood 07/15/2021 8:09 AM EDT 07/15/2021 8:09 AM EDT Basim Barr MD POINT OF CARE TEST O DANIEL Performing Organization Address City/[facility]/ZIP Co de Phone Number [facility] [place] [address] * POCT Glucose (07/14/2021 8:43 PM EDT) Glucose, POC 185 65 - 199 mg/dL [facility] Comment: Supplemental ranges: <140 mg/dL before meals <180 mg/dL all other times of the day Blood 07/14/2021 8:43 PM EDT 07/14/2021 8:43 PM EDT Basim Barr MD POINT OF CARE TEST O DANIEL Performing Organization Address City/[facility]/ZIP Co de Phone Number [facility] [place] [address] * POCT Glucose (07/14/2021 3:57 PM EDT) Glucose, POC 114 65 - 199 mg/dL [facility] Comment: Supplemental ranges: <140 mg/dL before meals <180 mg/dL all other times of the day Blood 07/14/2021 3:57 PM EDT 07/14/2021 3:57 PM EDT Basim Barr MD POINT OF CARE TEST O DANIEL Performing Organization Address [facility]/ZIP Co de Phone Number [facility] [place] [address] * POCT Glucose (07/14/2021 11:09 AM EDT) Glucose, POC 159 65 - 199 mg/dL [facility] Comment: Supplemental ranges: <140 mg/dL before meals <180 mg/dL all other times of the day Blood 07/14/2021 11:0 9 AM EDT 07/14/2021 11:09 AM EDT Basim Barr MD POINT OF CARE TEST O DANIEL Performing Organization Address [facility] Co de Phone Number [facility] [place] [address] * IR OR VASC Aniogram Image Storage Only (07/14/2021 10:41 AM EDT) Narrative DH RAD - 07/14/2021 10:41 AM EDT This exam is auto-finalizing. It's purpose is for storage only. Basim Barr MD IM FILM LIBRARY ORD ERABLES [facility] [place] * COVID-19 PCR (07/14/2021 10:00 AM EDT) SARS-CoV-2 RNA (Rapid) Not Detected Not Detected [facility] Comment: This result should [...] using the Simplexa COVID-19 Direct Assay by [employer] as authorized by the FDA issued Emergency [...] Department of Pathology and Laboratory Medicine at [facility], certified under the Clinical Laboratory Improvement Amendments [...] fact sheets at the following FDA website: https://www.fda.gov/medical-devices/rfvamvrkoih-caomvaz-3158-imlzm-38-lrqexaxxg- use-a xlgexppobpgpv-bnxlnyn-qaucsyu/obhfv-ofygnxnwpnz-yvcb SARS-CoV-2 Source CAR SALESPERSON Swab MA [facility] Nasopharyngeal Swab 07/15/19 10:00 AM EDT 07/14/2021 10:43 AM EDT Comment:Symptoms->Surveillan ce Narrative Resulting Agency Comment Spec In Lab Basim Barr MD MICROBIOLOGY - GENER AL ORDERABLES Performing Organization Address [facility] Co de Phone Number [facility] [place] [address] * POCT Glucose (07/14/2021 7:36 AM EDT) Glucose, POC 174 65 - 199 mg/dL [facility] Comment: Supplemental ranges: <140 mg/dL before meals <180 mg/dL all other times of the day Blood 07/14/2021 7:36 AM EDT 07/14/2021 7:36 AM EDT Basim Barr MD POINT OF CARE TEST O RDERABLES Performing Organization Address [facility] Co de Phone Number [facility] [place] [address] * Vitamin B12 (07/14/2021 7:16 AM EDT) Vitamin B12 483 232 - 1,245 pg/mL [facility] Blood Venous Draw / Unknown 07/14/2021 7:16 AM EDT 07/14/2021 7:30 AM EDT Narrative Resulting Agency Comment Spec In Lab Sandra Murphy MD CHEMISTRY ORDERABL ES [facility] [place] [address] * (ABNORMAL) Hemogram (07/14/2021 7:16 AM EDT) White Blood Cell 7.4 4.0 - 9.5 x10(3)/mc L [facility] Red Blood Cell 4.15(L) 4.58 - 5.54 x10(6)/ L [facility] Hemoglobin 13.0(L) 13.7 - 16.5 g/dL [facility] Hematocrit 39.4(L) 40.5 - 48.5 % [facility] Mean Cell Volume 94.9(H) 82.9 - 93.1 fL [facility] Mean Cell Hemoglobin 31.3 27.5 - 32.1 pg [facility] Mean Cell Hemoglobin Concentration 33.0 32.0 - 35.7 g/dL [facility] Platelet 234 145 - 357 x10(3)/ L [facility] RDW Standard Deviation 46.5(H) 36.0 - 45.0 [facility]ORATORY RDW coefficient of variation 13.4 11.4 - 13.8 % [facility] Mean Platelet Volume 9.9 7.6 - 12.9 [facility] LABORATORY NRBC% auto 0.0 % [facility] NRBC Absolute 0.000 0.000 - 0.000 x10(3)/ L [facility] Blood 07/14/2021 7:16 AM EDT 07/14/2021 7:20 AM EDT Narrative Resulting Agency Comment Spec In Lab Basim Barr MD HEMATOLOGY ORDERABLE S [facility] [place] [address] * (ABNORMAL) Basic Metabolic Panel (non-fasting) (07/14/2021 7:16 AM EDT) Glucose 184 65 - 199 mg/dL [facility] Comment:Diabetes: >=200 mg/d L plus symptoms Blood Urea Nitrogen 13 10 - 20 mg/dL [facility] Creatinine 0.71(L) 0.80 - 1.50 mg/dL [facility] Sodium 138 135 - 145 mmol/L [facility] Potassium 4.3 3.5 - 5.0 mmol/L [facility] Comment: Please note: ??Patients with WBC >100,000 may have falsely elevated Potassium levels. ??For accurate Potassium quantification in these patients send serum separator tube (gold top) for subsequent determinations. ??Contact the Clinical Chemistry Laboratory if there are any questions. Chloride 103 98 - 107 mmol/L [facility] Carbon Dioxide 22 22 - 31 mmol/L [facility] Anion Gap 13 5 - 15 mmol/L [facility] Calcium 9.0 8.5 - 10.5 mg/dL [facility] Est Glomerular Filtration Rate 93 >=60 mL/min/1. 73 m?? [facility] Comment: This patient? s [...] In Lab Basim Barr MD CHEMISTRY ORDERABLES [facility] [place] [address] * Prealbumin (07/14/2021 7:16 AM EDT) Prealbumin 23 20 - 40 mg/dL [facility] Comment: Prealbumin levels are generally lower in the pediatric population; adult concentrations are usually attained near puberty. Blood 07/14/2021 7:16 AM EDT 07/14/2021 7:20 AM EDT Narrative Resulting Agency Comment Spec In Lab Basim Barr MD CHEMISTRY ORDERABLES [facility] [place] [address] * SCAN DOC: IMPLANTABLE DEVICES (07/14/2021 12:00 AM EDT) Unknown MEDIA MGR SCAN EXT O RDR/RSLT documented in this encounter Visit Diagnoses Diagnosis Stenosis of carotid artery, unspecified laterality Pre-op testing Preoperative examination, unspecified History of cerebrovascular accident Transient ischemic attack (TIA), and cerebral infarction without residual deficits History of carotid endarterectomy Other postprocedural status Stenosis of carotid artery, unspecified laterality Stenosis of carotid artery, unspecified laterality Pre-op testing Preoperative examination, unspecified documented in this encounter Administered Medications Inactive [...] 07/15/2021 8:20 AM EDT 10 mg aspirin EC tablet 81 mg 81 [...] Given 07/16/2021 9:05 AM EDT 25 mg clopidogreL (Plavix) tablet [...] PM EDT 1 Units Ab dominal Tissue iodixanoL (Visipaque) (320 mg/mL) injection solution ONCE PRN, Starting on Sat07/14/21 at 1017, Until Sat07/17/21 at 1838, Intra-Operative (Intra-Procedure), Routine Given 07/14/2021 10:17 AM EDT 27 mLs 19- Surgical Site labetaloL (Normodyne) (5 mg/mL) injection solution 20 [...] Given 07/14/2021 8:29 PM EDT 20 mg lisinopriL (Zestril) tablet 20 mg 20 mg, Oral, DAILY, First dose (after last modification) on Sat07/17/21 at 0900, Until Discontinued, Routine Given 07/17/2021 8:46 AM EDT 20 mg ondansetron (pf) (Zofran) (2 mg/mL) injection 4-8 [...] RN) 0000 (Not Given - Provider: Kecia Reynolds, AYE - Reason: Patient/family refused)0550 (Given - Provider: [...] Tonja Coe RN) 0909 (Given - Provider: Tojna Coe RN) 0843 (Given - Provider: Inga [...] Joel RN)1130 (Not Given - Provider: Inga oJel RN - Reason: Contraindicated - Comment: pt going home)1630 (Due) lisinopriL (Zestril) tablet 10 mg (CANCELED) 10 mg, Oral, DAILY, First dose on Sat07/15/21 at 0900, Until Discontinued, Routine 0820 (Given - Provider: Tonja Coe RN) 0406 (Given - Provider: Honey Farias RN - Comment: spoke with provider to give 0900 dose now) lisinopriL (Zestril) tablet 10 mg (COMPLETED) 10 mg, Oral, ONCE, 1 dose, On 07/16/21 at 0715, Routine 0902 (Given - Provider: Tonja Coe RN) lisinopriL (Zestril) tablet 20 mg 20 mg, Oral, DAILY, First dose (after last modification) on Sat07/17/21 at 0900, Until Discontinued, Routine 0846 (Given [...] Watkins RN)0800 (Rate/Dose Change - Provider: Tonja Coe RN)0815 (Rate/Dose Change - Provider: Tonja Coe RN)0900 (Stopped - Provider: Tonja Coe RN) PRN [...] achieved, Routine 0300 (Given - Provider: Honey Farias, AYE)0406 (Given - Provider: Honey Farias, AYE) ondansetron (pf) (Zofran) (2 mg/mL) injection 4-8 [...] 4mg documented in this encounter Care Teams Medical Practice Manager Relationship Specialty Start Date End Date Alo Carey DO [address] [place] [address] [place] [phone] PCP - General Internal Medicine 08/31/20 07/03/23 documented as of this encounter
--- OUTSIDE RECORDS SUMMARY | 2023-10-06 00:42 | XMS_ITS | Encounter Summary ---
[place] [address] Care Team Providers Care Cemetery Worker Name Role Phone Alo Carey Primary Care Provider [phone] Encounter Details Date Type Department Care Team (Late st Contact Info) Description 05/23/2021 1:00 PM EDT Tech [place] [phone] Karin Ortega Stenosis of carotid artery, unspecified laterality Social History Tobacco Use Types Packs/Day Years [...] AM EDT Tech [place] [phone] Giacomo Queen 10/11/2023 11:15 AM EDT Office Visit [place] [phone] Basim Barr MD [facility] [place] [address] 10/18/2023 9:00 AM EDT Office Visit Hematology/Oncology at [address] [phone] Cl Hess MD [facility] [place] [address] Yessi Renee [address] HEMATOLOGY AND ONCOLOGY [place], [place] [phone] 10/18/2023 9:30 AM EDT Infusion Hematology Oncology at [address] [phone] 10/24/2023 9:30 AM EDT Scheduled View Only Radiation Oncology at [address] [phone] Rad Nurse, [facility] 10/24/2023 10:00 AM EDT Office Visit Radiation Oncology at [address] [phone] Bigg Peters MD [address] [place] [address] DR RADIATION ONCOLOGY [place], [place] [phone] 11/01/2023 9:00 AM EDT Office Visit Hematology/Oncology at [address] [phone] Cl Hess MD [facility] [place] [address] Yessi Renee [address] HEMATOLOGY AND [place]COLOGY [place], [place] [address] 11/01/2023 9:30 AM EDT Infusion Hematology Oncology at [address] [phone] 12/24/2023 1:00 PM EDT TH Visit (TeleHealth) Radiation Oncology at [address] [phone] Ping Moore PA [facility] DR [place] [address] documented as of this encounter Procedures Procedure Name Priority Date/Time Associated Diagnosis Comments CAROTID DUPLEX, BILATERAL Routine 05/23/2021 12:58 PM EDT Stenosis of carotid artery, unspecified laterality documented in this encounter Results * Carotid Duplex, Bilateral (05/23/2021 12:58 PM EDT) VB Text Report Department: Vascular Surgery Lab Patient: [id number] (WERO JARRETT) CPT: 15782 Referring Physician: JASIEL LUNA, LEAD SQL DEVELOPER ?? Indications: History of Carotid stenosis, eye symptoms, ? degree of stenosis. Findings: ICA Proximal, Right ? PSV (cm/s): 136 ? EDV (cm/s): 25 ? ICA/CCA: 3.1 ? Plaque Structure: Echogenic ? Plaque Surface: Smooth ? %Stenosis: 16-49% ICA Distal, Right ? PSV (cm/s): 67 ? EDV (cm/s): 23 ? ICA/CCA: 1.5 CCA Distal, Right ? PSV (cm/s): 44 ? EDV (cm/s): 16 ? %Stenosis: <50% CCA Proximal, Right ? PSV (cm/s): 100 ? EDV (cm/s): 18 External Carotid Artery, Right ? PSV (cm/s): 97 ? EDV (cm/s): 6 ? %Stenosis: <50% Vertebral, Right ? PSV (cm/s): 81 ? EDV (cm/s): 21 ? Direction of Flow: Antegrade ICA Proximal, Left ? PSV (cm/s): 95 ? EDV (cm/s): 18 ? ICA/CCA: 1.1 ? Plaque Structure: Echogenic ? Plaque Surface: Smooth ? %Stenosis: 16-49% ICA Distal, Left ? PSV (cm/s): 92 ? EDV (cm/s): 31 ? ICA/CCA: 1.0 CCA Distal, Left ? PSV (cm/s): 90 ? EDV (cm/s): 25 ? %Stenosis: <50% CCA Proximal, Left ? PSV (cm/s): 116 ? EDV (cm/s): 32 External Carotid Artery, Left ? PSV (cm/s): 132 ? EDV (cm/s): 0 ? %Stenosis: <50% Vertebral, Left ? PSV (cm/s): 56 ? EDV (cm/s): 16 ? Direction of Flow: Antegrade Interpretation: RIGHT: There is irregular plaque in the common carotid artery causing <50% stenosis by electronic calipers. There is smooth plaque in the proximal internal carotid artery causing 16-49% stenosis when compared to the more distal internal carotid artery. The bifurcation level is in the mid neck. LEFT: There is irregular plaque in the common carotid artery causing <50% stenosis by electronic calipers. There is smooth plaque in the proximal internal carotid artery causing 16-49% stenosis when compared to the more distal internal carotid artery. The bifurcation level is in the mid neck. Vertebral Artery Data: Patent vertebral arteries with normal antegrade Doppler waveforms and velocities bilaterally. Comparison: ??No previous study in our vascular lab database for comparison. Electronically Signed by: VICKIE LERNER on 2021-05-26 12:20:54 PM [facility] VB Text Report End of Report [facility] 05/23/2021 12:5 8 PM EDT Jasiel Luna LEAD SQL DEVELOPER VASCULAR ORDERABLE S [facility] documented in this encounter Visit Diagnoses Diagnosis Stenosis of carotid artery, unspecified laterality documented in this encounter Care Teams Cemetery Worker Relationship Specialty Start Date End Date Alo Carey DO [address] [place] [address] [place] [phone] PCP - General Internal Medicine 08/31/20 07/03/23 documented as of this encounter
--- OUTSIDE RECORDS SUMMARY | 2023-10-06 00:42 | XMS_ITS | Encounter Summary ---
Author Organization [facility] Address [facility] [place] [address] Care Team Providers Care Medical Associate Name Role Phone Alo Carey Primary Care Provider [phone] Encounter Details Date Type Department Care Team (Latest Contact Info) Description 05/04/2021 Travel Social History Tobacco Use Types Packs/Day [...] AM EDT Tech Visit [place] [address] Giacomo Queen 10/11/2023 11:15 AM EDT Office [place] [address] Basim Barr MD [facility] [place] [address] 10/18/2023 9:00 AM EDT Office Visit Hematology/Oncology at [address] [phone] Cl Hess MD [facility] [place] [address] Yessi Renee [address] HEMATOLOGY AND ONCOLOGY [place], [place] [phone] 10/18/2023 9:30 AM EDT Infusion Hematology Oncology at [address] [phone] 10/24/2023 9:30 AM EDT Scheduled View Only Radiation Oncology at [address] [phone] [facility] 10/24/2023 10:00 AM EDT Office Visit Radiation Oncology at [address] [phone] Bigg Peters MD [address] [place] [address] DR RADIATION ONCOLOGY [place], [place] [phone] 11/01/2023 9:00 AM EDT Office Visit Hematology/Oncology at [address] [phone] Cl Hess MD [facility] [place] [address] Yessi Renee [address] HEMATOLOGY AND ONCOLOGY [place], [place] [phone] 11/01/2023 9:30 AM EDT Infusion Hematology Oncology at [address] [phone] 12/24/2023 1:00 PM EDT TH Visit (TeleHealth) Radiation Oncology at [address] [phone] Ping Moore PA [facility] DR HEMATOLOGY [place] [address] documented as of this encounter Visit Diagnoses Not on filedocumented in this encounter Care Teams Medical Associate Relationship Specialty Start Date End Date Alo Carey DO [address] [place] [address] [place] [phone] PCP - General Internal Medicine 08/31/20 07/03/23 documented as of this encounter
--- OUTSIDE RECORDS SUMMARY | 2023-10-06 00:42 | XMS_ITS | Encounter Summary ---
[place] [address] Care Team Providers Care Chiller Operator Name Role Phone Cherry Alo Lon RUTHERFORD Primary Care Provider [phone] Reason for Referral * Diagnostic Test (Routine) - Closed Specialty Diagnoses / Procedures Referred By Marques livingston Referred To Contact Diagnoses Stenosis of carotid artery, unspecified laterality Procedures Carotid Duplex, Bilateral Jasiel Luna APRN [facility] [place] [address] [facility] Vascular Lab [address] [place] [phone] Referral ID Status Reason Start Date Expiration Date V isits Requested Visits Authorized [id number] Closed Specialty Service Requested 05/05/2021 05/05/2022 1 1 Encounter Details Date Type Department Care Team (Late st Contact Info) Description 05/05/2021 Orders [place] [address] Jasiel Luna APRN [facility] [place] [address] Stenosis of carotid artery, unspecified laterality Social [...] AM EDT Tech [place] [address] Giacomo Queen 10/11/2023 11:15 AM EDT Office [place] [address] Basim Barr MD [facility] [place] [address] 10/18/2023 9:00 AM EDT Office Visit Hematology/Oncology at [address] [phone] Cl Hess MD [facility] [place] [address] Yessi Renee APRN [address] [place] [address] DR HEMATOLOGY AND ONCOLOGY [place], [place] [phone] 10/18/2023 9:30 AM EDT Infusion Hematology Oncology at [address] [phone] 10/24/2023 9:30 AM EDT Scheduled View Only Radiation Oncology at [address] [phone] [facility] 10/24/2023 10:00 AM EDT Office Visit Radiation Oncology at [address] [phone] Bigg Peters MD [address] [place] [address] DR RADIATION ONCOLOGY [place], [place] [address] 11/01/2023 9:00 AM EDT Office Visit Hematology/Oncology at [address] [phone] Cl Hess MD [facility] [place] [address] Yessi Renee APRN [address] [place] [address] DR HEMATOLOGY AND ONCOLOGY [place], [place] [phone] 11/01/2023 9:30 AM EDT Infusion Hematology Oncology at [address] [phone] 12/24/2023 1:00 PM EDT TH Visit (TeleHealth) Radiation Oncology at [address] [phone] Ping Moore PA [facility] [place] [address] documented as of this encounter Results * Carotid Duplex, Bilateral (05/23/2021 12:58 PM EDT) VB Text Report Department: Vascular Surgery Lab Patient: [id number] (THA JARRETT) CPT: 44847 Referring Physician: JASIEL LUNA APRN ?? Indications: History of Carotid stenosis, eye [...] 05/23/2021 12:5 8 PM EDT Jasiel Luna TACO MAKER VASCULAR ORDERABLE S [facility] documented in this encounter Visit Diagnoses Diagnosis Stenosis of carotid artery, unspecified laterality documented in this encounter Care Teams Chiller Operator Relationship Specialty Start Date End Date Alo Carey DO [address] [place] [address] [place] [address] PCP - General Internal Medicine 08/31/20 07/03/23 documented as of this encounter
--- OUTSIDE RECORDS SUMMARY | 2023-10-06 00:42 | XMS_ITS | Encounter Summary ---
Author Organization [facility] [place] [address] Care Team Providers Care River Driver Name Role Phone Alo Carey DO Primary Care Provider Encounter Details Date Type Department Care Team (Late st Contact Info) Description 05/04/2021 Notes [place] [address] Sr Ismael Morales Social History Tobacco Use Types Packs/Day Years [...] as of this encounter Progress Notes * Sr Ismael Morales - 05/04/2021 10:02 AM EST Study Title: Comparative Effectiveness of Pulmonary Embolism Prevention after hip and knee Replacement: Balancing Safety and Effectiveness. Principle Bilingual Teacher: Dr. Phan Mohr #: [id number] Informed consent for the above entitled study was reviewed with subject -in detail. The details of the study, length of study, and risks were reviewed with subject. Upon review, subject verbalized adequate understanding of the protocol and signed the consent along with me. No study procedures were initiated prior to signing the consent. A copy was provided to subject, and the original consent will be kept with the study chart. Reviewed initial inclusion and exclusion, will continue to review medical history. Subject meets ALL of the inclusion criteria for entry into this clinical trial: 1) Males and females 21 years of age or older 2) Undergoing elective primary, revision, or second stage re-implantation total hip/knee replacement or uni-compartmental knee replacement or hip resurfacing arthoplasty 3) Patient has necessary mental capacity to participate and is able to comply with study protocol requirements 4) Patient is able to be randomized to at least two of the three study prophylaxis regimens 5) A test done on the day of surgery, or other criteria (i.e. Sex or reproductive potential) will be used to ensure the patient is not 6) Patent was approached, offered participation, and signed the consent form 7) Patient is willing to be randomized and participate in the study Subject does NOT meet any exclusion criteria for entry into this clinical trial: 1) Patients undergoing bilateral hip or knee replacement 2) Patient undergoing total hip or knee replacement who has been enrolled in this study for a priorhip or knee replacement. 3) Women who are or , as well as those of reproductive potential unless thereis a negative urine test on the day of surgery. 4) Patients on chronic (longer than the prior 6 months) anticoagulation other than with antiplatelet medications 5) Patient who is concurrently enrolled in another active interventional clinical trial testing a drug or intervention known or believed to interact with aspirin, warfarin, rivaroxaban. 6) Patients with documented gastrointestinal, cerebral, or other hemorrhage within 3 months of the operation 7) Patients with a known diagnosis of defective hemostasis and past history of clinical bleeding requiring transfusion and treatment. 8) Patients who have had an operative procedure involving the eye, ear, or central nervous system within one month 9) Patient with severe uncontrolled hypertension with systolic BP > 220mmHg and diastolic BP > 120mmHg 10) Patient with an absolute body weight of less than 41 kilograms (90.4 lbs) at baseline visit. 11) Vulnerable patient populations including prisoners and institutionalized individuals. Schedule of events were reviewed with the subject. Verbalized understanding of appointment dates and procedures, subject agrees to all. Encouraged to call with any questions/concerns. documented in this encounter Plan of Treatment Upcoming Encounters Date Type Department Care Team (Late st Contact Info) Description 10/11/2023 10:00 AM EDT Tech [place] [address] Giacomo Queen 10/11/2023 11:15 AM EDT Office [place] [address] Basim Barr MD [facility] [place] [address] 10/18/2023 9:00 AM EDT Office Visit Hematology/Oncology at [address] [phone] Cl Hess MD [facility] [place] [address] Yessi Renee APRN [address] [place] [address] DR HEMATOLOGY AND ONCOLOGY [place], [place] [phone] 10/18/2023 9:30 AM EDT Infusion Hematology Oncology at [address] [phone] 10/24/2023 9:30 AM EDT Scheduled View Only Radiation Oncology at [address] [phone] [facility] 10/24/2023 10:00 AM EDT Office Visit Radiation Oncology at [address] [phone] Bigg Peters MD [address] [place] [address] DR RADIATION ONCOLOGY [place], [place] [address] [phone] 11/01/2023 9:00 AM EDT Office Visit Hematology/Oncology at [address] [phone] 43 Cl Hess MD [facility] [place] [address] Yessi Renee APRN [address] [place] [address] DR HEMATOLOGY AND ONCOLOGY [place], [place] [address] 11/01/2023 9:30 AM EDT Infusion Hematology Oncology at [address] [phone] 12/24/2023 1:00 PM EDT TH Visit (TeleHealth) Radiation Oncology at [address] [phone] Ping Moore PA [facility] DR HEMATOLOGY [place] [address] documented as of this encounter Visit Diagnoses Not on filedocumented in this encounter Care Teams River Driver Relationship Specialty Start Date End Date Alo Carey DO [address] [place] [address] [place] [phone] PCP - General Internal Medicine 08/31/20 07/03/23 documented as of this encounter
--- OUTSIDE RECORDS SUMMARY | 2023-10-06 00:42 | XMS_ITS | Encounter Summary ---
Author Organization [facility]ly [facility] [place] [address] Care Team Providers Care Graduate Assistant Name Role Phone Alo Carey Primary Care Provider Encounter Details Date Type Department Care Team (Late st Contact Info) Description 06/12/2021 Orders [place] [phone] Marva Moura, RN Stenosis of carotid artery, unspecified laterality; Pre-op testing Social History Tobacco Use Types Packs/Day Years [...] AM EDT Tech [place] [phone] Giacomo Queen 10/11/2023 11:15 AM EDT Office [place] [phone] Basim Barr MD [facility] [place] [address] 10/18/2023 9:00 AM EDT Office Visit Hematology/Oncology at [address] [phone] Cl Hess MD [facility] [place] [address] Yessi Renee [address] HEMATOLOGY AND ONCOLOGY [place], [place] [phone] 10/18/2023 9:30 AM EDT Infusion Hematology Oncology at [address] [phone] 10/24/2023 9:30 AM EDT Scheduled View Only Radiation Oncology at [address] [phone] Rad , [place] 10/24/2023 10:00 AM EDT Office Visit Radiation Oncology at [address] [phone] Bigg Peters MD [address] [place] [address] DR RADIATION ONCOLOGY [place], [place] [id number] 11/01/2023 9:00 AM EDT Office Visit Hematology/Oncology at [address] [phone] Cl Hess MD [facility] [place] [address] Yessi Renee [address] HEMATOLOGY AND ONCOLOGY [place], [place] [address] 11/01/2023 9:30 AM EDT Infusion Hematology Oncology at [address] [phone] 12/24/2023 1:00 PM EDT TH Visit (TeleHealth) Radiation Oncology at [address] [phone] Ping Moore PA [facility] DR HEMATOLOGY AND ONCOLOGY [place] [id number] documented as of this encounter Results * Prealbumin (07/14/2021 7:16 AM EDT) Prealbumin 23 20 - 40 mg/dL [facility] Comment: Prealbumin levels are generally lower in the pediatric population; adult concentrations are usually attained near puberty. Blood 07/14/2021 7:16 AM EDT 07/14/2021 7:20 AM EDT Narrative Resulting Agency Comment Spec In Lab Basim Barr MD CHEMISTRY ORDERABLES [facility] [place] [address] * (ABNORMAL) Basic Metabolic Panel (non-fasting) (07/14/2021 7:16 AM EDT) Glucose 184 65 - 199 mg/dL [facility] Comment:Diabetes: >=200 mg/d L plus symptoms Blood Urea Nitrogen 13 10 - 20 mg/dL [facility] Creatinine 0.71(L) 0.80 - 1.50 mg/dL [facility] Sodium 138 135 - 145 mmol/L [facility] Potassium 4.3 3.5 - 5.0 mmol/L [facility] Comment: Please note: ??Patients with WBC >100,000 may have falsely elevated Potassium levels. ??For accurate Potassium quantification in these patients send serum separator tube (gold top) for subsequent determinations. ??Contact the Clinical Chemistry Laboratory if there are any questions. Chloride 103 98 - 107 mmol/L [facility] Carbon Dioxide 22 22 - 31 mmol/L [facility] Anion Gap 13 5 - 15 mmol/L [facility] Calcium 9.0 8.5 - 10.5 mg/dL [facility] Est Glomerular Filtration Rate 93 >=60 mL/min/1. 73 m?? [facility] Comment: This patient? s estimated [...] Barr MD CHEMISTRY ORDERABLES Performing Organization Address City/State/[facility] Co de Phone Number [facility] [place] [address] * (ABNORMAL) Hemogram (07/14/2021 7:16 AM EDT) White Blood Cell 7.4 4.0 - 9.5 x10(3)/mc L [facility] Red Blood Cell 4.15(L) 4.58 - 5.54 x10(6)/mc L [facility] Hemoglobin 13.0(L) 13.7 - 16.5 g/dL [facility] Hematocrit 39.4(L) 40.5 - 48.5 % [facility] Mean Cell Volume 94.9(H) 82.9 - 93.1 fL [facility] Mean Cell Hemoglobin 31.3 27.5 - 32.1 pg [facility] Mean Cell Hemoglobin Concentration 33.0 32.0 - 35.7 g/dL [facility] Platelet 234 145 - 357 x10(3)/mc L [facility] RDW Standard Deviation 46.5(H) 36.0 - 45.0 fL [facility] RDW coefficient of variation 13.4 11.4 - 13.8 % [facility] Mean Platelet Volume 9.9 7.6 - 12.9 fL [facility] NRBC% auto 0.0 % [facility] NRBC Absolute 0.000 0.000 - 0.000 x10(3)/mc L [facility] Blood 07/14/2021 7:16 AM EDT 07/14/2021 7:20 AM EDT Narrative Resulting Agency Comment Spec In Lab Basim Barr MD HEMATOLOGY ORDERABLE S [facility] [place] [address] documented in this encounter Visit Diagnoses Diagnosis Stenosis of carotid artery, unspecified laterality Pre-op testing Preoperative examination, unspecified documented in this encounter Care Teams Graduate Assistant Relationship Specialty Start Date End Date Alo Carey DO [address] [place] [address] [place] [address] PCP - General Internal Medicine 08/31/20 07/03/23 documented as of this encounter
--- OUTSIDE RECORDS SUMMARY | 2023-10-06 00:42 | XMS_ITS | Encounter Summary ---
Author Organization [facility] [place] [address] Care Team Providers Care Pull Over Machine Operator Name Role Phone Alo Carey DO Primary Care Provider [phone] Encounter Details Date Type Department Care Team (Late st Contact Info) Description 07/12/2021 Telephone [place] [phone] Rocío Manuel, RN Social History Tobacco Use Types Packs/Day [...] encounter Miscellaneous Notes * Telephone Encounter - Rocío Manuel RN - 07/12/2021 8:17 AM EDT Pt states he needs covid test set up for today at [facility]. States he had appt yesterday at [facility] for covid swab for preop (surgery scheduled for 07/14/21 at [facility]) but his appt with md went over time and he missed it. [place] is back in [place] now and wants test there so he can have surgery on Saturday. I will forward this message to preop schedulers. Please call pt reid at [phone]. documented in this encounter Plan of Treatment Upcoming Encounters Date Type Department Care Team (Late st Contact Info) Description 10/11/2023 10:00 AM EDT Tech Visit [place] [address] Giacomo Queen 10/11/2023 11:15 AM EDT Office [place] [phone] Basim Barr MD [facility] [place] [address] 10/18/2023 9:00 AM EDT Office Visit Hematology/Oncology at [address] [phone] Cl Hess MD [facility] [place] [place] [address] Yessi Renee APRN [address] [place] [address] DR HEMATOLOGY AND ONCOLOGY [place], [place] [phone] 10/18/2023 9:30 AM EDT Infusion Hematology Oncology at [address] [phone] 10/24/2023 9:30 AM EDT Scheduled View Only Radiation Oncology at [address] [phone] Rad Nurse, [facility] 10/24/2023 10:00 AM EDT Office Visit Radiation Oncology at [address] [phone] Bigg Peters MD [address] [place] [address] DR RADIATION [place]COLOGY [place], [place] [address] 11/01/2023 9:00 AM EDT Office Visit Hematology/Oncology at [address] [phone] Cl Hess MD [facility] [place] [place] [address] Yessi Renee APRN [address] [place] [address] DR HEMATOLOGY AND ONCOLOGY [place], [place] [phone] 11/01/2023 9:30 AM EDT Infusion Hematology Oncology at [address] [phone] 12/24/2023 1:00 PM EDT TH Visit (TeleHealth) Radiation Oncology at [address] [phone] Ping Moore PA [facility] HEMATOLOGY [place] [address] documented as of this encounter Visit Diagnoses Not on filedocumented in this encounter Care Teams Pull Over Machine Operator Relationship Specialty Start Date End Date Alo Carey DO [address] [place] [address] [place] [phone] PCP - General Internal Medicine 08/31/20 07/03/23 documented as of this encounter
--- OUTSIDE RECORDS SUMMARY | 2023-10-06 00:42 | XMS_ITS | Encounter Summary ---
Author Organization [facility] [place] [address] Care Team Providers Care Instructor Ballroom Dancing Name Role Phone Alo Carey DO Primary Care Provider [phone] Encounter Details Date Type Department Care Team (Late st Contact Info) Description 06/16/2021 Orders Only Radiation [place] [phone] Gordo Beaver MD [facility] [place] [address] Malignant neoplasm of prostate Social History Tobacco [...] AM EDT Tech [place] [phone] Giacomo Queen 10/11/2023 11:15 AM EDT Office Visit [place] [phone] Basim Barr MD [facility] [place] [address] 10/18/2023 9:00 AM EDT Office Visit Hematology/Oncology at [address] [phone] Cl Hess MD [facility] [place] [address] Yessi Renee [address] HEMATOLOGY AND ONCOLOGY [place], [place] [address] 10/18/2023 9:30 AM EDT Infusion Hematology Oncology at [address] [phone] 10/24/2023 9:30 AM EDT Scheduled View Only Radiation Oncology at [address] [phone] Rad Nurse, [facility] 10/24/2023 10:00 AM EDT Office Visit Radiation Oncology at [address] [phone] Bigg Peters MD [address] [place] [address] DR RADIATION ONCOLOGY [place], [place] [address] 11/01/2023 9:00 AM EDT Office Visit Hematology/Oncology at [address] [phone] Cl Hess MD [facility] [place] [address] Yessi Renee [address] HEMATOLOGY AND ONCOLOGY [place], [place] [address] 11/01/2023 9:30 AM EDT Infusion Hematology Oncology at [address] [phone] 12/24/2023 1:00 PM EDT TH Visit (TeleHealth) Radiation Oncology at [address] [phone] Ping Moore PA [facility] [place] [address] documented as of this encounter Visit Diagnoses Diagnosis Malignant neoplasm of prostate documented in this encounter Care Teams Instructor Ballroom Dancing Relationship Specialty Start Date End Date Alo Carey DO [address] [place] [address] [place] [address] PCP - General Internal Medicine 08/31/20 07/03/23 documented as of this encounter
--- OUTSIDE RECORDS SUMMARY | 2023-10-06 00:42 | XMS_ITS | Encounter Summary ---
Author Organization [facility] [place] [address] Care Team Providers Care Peoplesoft Hcm Consultant Name Role Phone Alo Carey Primary Care Provider [phone] Encounter Details Date Type Department Care Team (Late st Contact Info) Description 07/06/2021 Telephone Radiation Oncology at [address] [phone] Juli Tripathi RN Social History Tobacco Use Types Packs/Day Years Used Date Smoking Tobacco: Former Cigarettes 4 1 963 - 1992 Smokeless Tobacco: Never Alcohol Use Standard Drinks/Week Comments Yes 7 (1 standard drink = 0.6 oz pur e alcohol) Sex and Gender Information Value Date Recorded Sex Assigned at Not on file Gender Identity Not on file Sexual Orientation Not on file documented as of this encounter Miscellaneous Notes * Telephone Encounter - Juli Tripathi RN - 07/06/2021 4:46 PM EDT Radiation Oncology Post-Procedure Phone Note Name: Wero Orona#: [id number] : 1950 Date/Time of Call: 07/06/21 Procedure: Placement of [employer] Date of Procedure: 07/05/21 Spoke on the phone to: Patient If not patient, whom? x Message left on answering machine Call attempted - unable to contact patient General condition as stated by the patient or designee: Excellent Good Fair Poor Other x ??? The patient's pain is controlled:Patient Denies pain YES NO x Comments/intervention: ??? Patient denies tenderness / swelling in perineum/scrotum: YES NO x Comments/intervention: ??? Patient denies changes in urinary symptoms: YES NO x Comments/intervention: ??? Patient has questions re medications: No Confirmed that he is taking dex as directed. Gimiperide as directed(BID while on dex) Finger sticksOK ??? YES NO x Comments/interventions: ??? Patient knows how to contact us in case of emergency: YES NO x Comments/interventions: Section Radiation Oncology [facility] documented in this encounter Plan of Treatment Upcoming Encounters Date Type Department Care Team (Late st Contact Info) Description 10/11/2023 10:00 AM EDT Tech [place] [address] Giacomo Queen 10/11/2023 11:15 AM EDT Office Visit [place] [address] Basim Barr MD [facility] [place] [address] 10/18/2023 9:00 AM EDT Office Visit Hematology/Oncology at [address] [phone] Cl Hess MD [facility] [place] [address] Yessi Renee APRN [address] [place] [address] DR HEMATOLOGY AND ONCOLOGY [place], [place] [phone] 10/18/2023 9:30 AM EDT Infusion Hematology Oncology at [address] [phone] 10/24/2023 9:30 AM EDT Scheduled View Only Radiation Oncology at [address] [phone] Jeronimo Nurse, [place] 10/24/2023 10:00 AM EDT Office Visit Radiation Oncology at [address] [phone] Bigg Peters MD [address] [place] [address] DR RADIATION ONCOLOGY [place], [place] [phone] 11/01/2023 9:00 AM EDT Office Visit Hematology/Oncology at [address] [phone] Cl Hess MD [facility] [place] [address] Yessi Renee APRN [address] [place] [address] DR HEMATOLOGY AND ONCOLOGY [place], [place] [phone] 11/01/2023 9:30 AM EDT Infusion Hematology Oncology at [address] [phone] 12/24/2023 1:00 PM EDT TH Visit (TeleHealth) Radiation Oncology at [address] [phone] Ping Moore PA [facility] HEMATOLOGY [place] [address] documented as of this encounter Visit Diagnoses Not on filedocumented in this encounter Care Teams Peoplesoft Hcm Consultant Relationship Specialty Start Date End Date Alo Carey DO [address] [place] [address] [place] [phone] PCP - General Internal Medicine 08/31/20 07/03/23 documented as of this encounter
--- OUTSIDE RECORDS SUMMARY | 2023-10-06 00:42 | XMS_ITS | Encounter Summary ---
Author Organization [facility] [place] [address] Care Team Providers Care Grind Operator Name Role Phone Alo Carey Primary Care Provider [phone] Encounter Details Date Type Department Care Team (Latest Contact Info) Description 05/04/2021 11:00 AM EST Clinical [place] [phone] Primary osteoarthritis of right hip; Right leg pain Social History Tobacco Use Types Packs/Day Years Used Date Smoking Tobacco: Former Cigarettes 4 02 04 963 - 1992 Smokeless Tobacco: Never Alcohol Use Standard Drinks/Week Comments Yes 7 (1 standard drink = 0.6 oz pur e alcohol) Sex and Gender Information Value Date Recorded Sex Assigned at Not on file Gender Identity Not on file Sexual Orientation Not on file documented as of this encounter Last Filed Vital Signs Vital Sign Reading Time Taken Comments Blood Pressure 144/87 05/04/2021 11:33 AM EST Pulse - - Temperature - - Respiratory Rate - - Oxygen Saturation - - Inhaled Oxygen Concentration - - Weight - - Height - - Body Mass Index - - documented in this encounter Progress Notes * Ashley Salazar RN - 05/04/2021 11:00 AM EST PAT questionnaire reviewed with patient and brother while in Pre Admission testing. 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 Pre-operative instruction booklet reviewed. Patient verbalizes a good understanding of all information. Note - patient is legally blind. clearfast given to patient. PLAN Testing: Labs and T+S done, per Dr. Mai, EKG not needed. Special medication instructions: Plavix - last dose 05/19 Procedure date: 05/25/21 - Dr. Wu Pre Surgery Covid screening patient response: No COVID diagnosis or s/s within last 3 months. documented in this encounter Plan of Treatment Upcoming Encounters Date Type Department Care Team (Late st Contact Info) Description 10/11/2023 10:00 AM EDT Tech [place] [phone] Giacomo Queen 10/11/2023 11:15 AM EDT Office [place] [phone] Basim Barr MD [facility] [place] [address] 10/18/2023 9:00 AM EDT Office Visit Hematology/Oncology at [address] [phone] Cl Hess MD [facility] [place] [address] Yessi Renee, LENS INSERTER [address] [place] [address] DR HEMATOLOGY AND ONCOLOGY [place], [place] [id number] 10/18/2023 9:30 AM EDT Infusion Hematology Oncology at [address] [phone] 10/24/2023 9:30 AM EDT Scheduled View Only Radiation Oncology at [address] [phone] [facility] 10/24/2023 10:00 AM EDT Office Visit Radiation Oncology at [address] [phone] Bigg Peters MD [address] [place] [address] DR RADIATION ONCOLOGY [place], [place] [id number] 11/01/2023 9:00 AM EDT Office Visit Hematology/Oncology at [address] [phone] Cl Hess MD [facility] [place] [address] Yessi Renee APRN [address] [place] [address] DR HEMATOLOGY AND ONCOLOGY [place], [place] [id number] 11/01/2023 9:30 AM EDT Infusion Hematology Oncology at [address] [phone] 12/24/2023 1:00 PM EDT TH Visit (TeleHealth) Radiation Oncology at [address] [phone] Ping Moore PA [facility] DR HEMATOLOGY [place] [address] documented as of this encounter Procedures Procedure Name Priority Date/Time Associated Diagnosis Comments TYPE AND SCREEN VALIDITY Routine 05/04/2021 11:34 AM EST ABORH RECHECK STATUS Routine 05/04/2021 11:34 AM EST HEMOGRAM Routine 05/04/2021 11:34 AM EST Primary osteoarthritis of right hip Right leg pain DIFFERENTIAL, AUTOMATED Routine 05/04/2021 11:34 AM EST Primary osteoarthritis of right hip Right leg pain HC ANTIBODY DETECTION,CAPTURE-R Routine 05/04/2021 11:34 AM EST Primary osteoarthritis of right hip Right leg pain ABO/RH TYPING Routine 05/04/2021 11:34 AM EST Primary osteoarthritis of right hip Right leg pain HC PARTIAL THROMBOPLASTIN TIME Routine 05/04/2021 11:34 AM EST Primary osteoarthritis of right hip Right leg pain HC PROTHROMBIN TIME Routine 05/04/2021 1 1:34 AM EST Primary osteoarthritis of right hip Right leg pain HC CBC,PLT & AUTO DIFF Routine 11:34 AM EST Primary osteoarthritis of right hip Right leg pain ANTIBODY SCREEN Routine 05/04/2021 11:34 AM EST Primary osteoarthritis of right hip Right leg pain BASIC METABOLIC PANEL Routine 05/04/2021 11:34 AM EST Primary osteoarthritis of right hip Right leg pain documented in this encounter Results * Type and Screen Validity (05/04/2021 11:34 AM EST) T&S only valid at [facility] LABORATORY Comment:This Type and Screen result is only valid at the [facility] Blood 05/04/2021 11:3 4 AM EST 05/04/2021 11:34 AM EST Narrative Resulting Agency Comment Spec In Lab Ismael Wu MD BLOOD BANK LAB ORDE PROSPER Performing Organization Address [facility] Co de Phone Number [facility] [place] [address] * ABORH Recheck Status (05/04/2021 11:34 AM EST) ABORH Type Recheck Completed [facility] Blood 05/04/2021 11:3 4 AM EST 05/04/2021 11:34 AM EST Narrative Resulting Agency Comment Spec In Lab Ismael Wu MD BLOOD BANK LAB ORDE PROSPER Performing Organization Address City/[facility]/ZIP Co de Phone Number [facility] [place] [address] * Antibody screen (05/04/2021 11:34 AM EST) Pathologist [facility] Ab Screen Interp Negative [facility] Expires at [id number] on: 06/18/2021 [facility] Comment: Corrected from 05/28/21 0:00:00 EDT [Unknown] on 05/22/21 18:29:23 EDT by Irma Morales Blood 05/04/2021 11:3 4 AM EST 05/04/2021 11:34 AM EST Narrative Resulting Agency Comment Spec In Lab Ismael Wu MD BLOOD BANK LAB NIEVESE PROSPER [facility] [place] [address] * Differential, Automated (05/04/2021 11:34 AM EST) [facility] Neutrophil % 56.0 % [facility]ATORY Neutrophil Absolute 3.78 1.70 - 6.10 x10(3)/[facility] LABORATORY Lymph % 30.6 % [facility]ORY Lymphocytes Abs 2.1 0.9 - 3.2 x10(3)/[facility] LABORATORY Monocyte % 9.2 % [facility] Monocyte Abs 0.6 0.3 - 0.9 x10(3)/[facility] LABORATORY Eos % 3.3 % [facility] Eosinophils Abs 0.2 0.0 - 0.4 x10(3)/[facility] LABORATORY Basophil % 0.6 % [facility] Baso Absolute 0.0 0.0 - 0.1 x10(3)/[facility] LABORATORY Immature Gran % 0.30 % [facility] Comment: Immature granulocytes(IG's)percentage and absolute count will include metamyelocytes, myelocytes, and promyelocytes. Blood smears from CBCs yielding IG's will be scanned manually for concordance. If this scan disagrees with the automated IG or if promyelocytes are noted, a manual differential will be performed. Immature Gran Absolute 0.02 0.00 - 0.04 x10(3)/mcL [facility] Blood 05/04/2021 11:3 4 AM EST 05/04/2021 11:46 AM EST Narrative Resulting Agency Comment Spec In Lab Ismael Wu MD HEMATOLOGY ORDERABL ES Performing Organization Address City/[facility]/ZIP Co de Phone Number [facility] [place] [address] * ABO/Rh Typing (05/04/2021 11:34 AM EST) ABORH Type O Pos [facility] Blood 05/04/2021 11:3 4 AM EST 05/04/2021 11:34 AM EST Narrative Resulting Agency Comment Spec In Lab Ismael Wu MD BLOOD BANK LAB ORDE RABLES Performing Organization Address City/[facility]/ZIP Co de Phone Number [facility] [place] [address] * (ABNORMAL) Hemogram (05/04/2021 11:34 AM EST) White Blood Cell 6.7 4.0 - 9.5 x10(3)/[facility] LABORATORY Red Blood Cell 4.33(L) 4.58 - 5.54 x10(6)/ L [facility] Hemoglobin 13.5(L) 13.7 - 16.5 g/dL [facility] Hematocrit 41.2 40.5 - 48.5 % [facility] Mean Cell Volume 95.2(H) 82.9 - 93.1 fL [facility] Mean Cell Hemoglobin 31.2 27.5 - 32.1 pg [facility] Mean Cell Hemoglobin Concentration 32.8 32.0 - 35.7 g/dL [facility] Platelet 211 145 - 357 x10(3)/[facility] LABORATORY RDW Standard Deviation 46.2(H) 36.0 - 45.0 fL [facility] RDW coefficient of variation 13.1 11.4 - 13.8 % [facility] Mean Platelet Volume 10.4 7.6 - 12.9 fL [facility] NRBC% auto 0.0 % [facility] NRBC Absolute 0.000 0.000 - 0.000 x10(3)/mc L [facility] Blood 05/04/2021 11:3 4 AM EST 05/04/2021 11:46 AM EST Narrative Resulting Agency Comment Spec In Lab Ismael Wu MD HEMATOLOGY ORDERABL ES [facility] [place] [address] * Basic Metabolic Panel (non-fasting) (05/04/2021 11:34 AM EST) Glucose 178 65 - 199 mg/dL [facility] Comment:Diabetes: >=200 mg/d L plus symptoms Blood Urea Nitrogen 19 10 - 20 mg/dL [facility] Creatinine 0.84 0.80 - 1.50 mg/dL [facility] Sodium 140 135 - 145 mmol/L [facility] Potassium 4.6 3.5 - 5.0 mmol/L [facility] Comment: Please note: ??Patients with WBC >100,000 may have falsely elevated Potassium levels. ??For accurate Potassium quantification in these patients send serum separator tube (gold top) for subsequent determinations. ??Contact the Clinical Chemistry Laboratory if there are any questions. Chloride 104 98 - 107 mmol/L [facility] Carbon Dioxide 25 22 - 31 mmol/L [facility] Anion Gap 11 5 - 15 mmol/L [facility] Calcium 9.7 8.5 - 10.5 mg/dL [facility] Est Glomerular Filtration Rate 87 >=60 mL/min/1. 73 m?? [facility] Comment: This patient? s estimated glomerular filtration rate (eGFR) is between 87 mL/min/1.73 m2 (patients with less muscle mass per kg body weight) and 101 mL/min/1.73 m2 (patients with more muscle mass [...] and symptoms in addition to eGFR. Blood 05/04/2021 11:3 4 AM EST 05/04/2021 11:46 AM EST Narrative Resulting Agency Comment Spec In Lab Ismael Wu MD CHEMISTRY ORDERABLE S Performing Organization Address [facility] Co de Phone Number [facility] [place] [address] * Prothrombin Time (05/04/2021 11:34 AM EST) Prothrombin Time 11.2 9.4 - 12.5 sec [facility] International Normalization Ratio 1.0 [facility] Comment: An INR <2.0 indicates adequate procoagulant activity for hemostasis in most patients without underlying bleeding disorders, though the INR may not adequately reflect hemostatic capacity in patients with liver disease and synthetic impairment. The recommended target INR range for therapeutic anticoagulation is 2.0 ? 3.0 for most applications, though lower and higher ranges may be appropriate depending on clinical circumstances. Blood 05/04/2021 11:3 4 AM EST 05/04/2021 11:46 AM EST Narrative Resulting Agency Comment Spec In Lab Ismael Wu MD HEMATOLOGY ORDERABL ES Performing Organization Address [facility] Co de Phone Number [facility] [place] [address] * APTT (05/04/2021 11:34 AM EST) Partial Thromboplastin Time 29 25 - 37 sec [facility] Comment: The PTT is NOT appropriate for heparin monitoring. Use the Anti-Xa level for heparin monitoring (HEP UFH) or LMWH monitoring (HEP LMW). A PTT less than 37 seconds generally indicates adequate hemostasis. Blood 05/04/2021 11:3 4 AM EST 05/04/2021 11:46 AM EST Narrative Resulting Agency Comment Spec In Lab Ismael Wu MD HEMATOLOGY ORDERABL ES Performing Organization Address City/State/[facility] Co de Phone Number [facility] [place] [address] documented in this encounter Visit Diagnoses Diagnosis Primary osteoarthritis of right hip Primary localized osteoarthrosis, pelvic region and thigh Right leg pain Pain in limb documented in this encounter Care Teams Grind Operator Relationship Specialty Start Date End Date Alo Carey DO [address] [place] [address] [place] [phone] PCP - General Internal Medicine 08/31/20 07/03/23 documented as of this encounter
--- OUTSIDE RECORDS SUMMARY | 2023-10-06 00:42 | XMS_ITS | Encounter Summary ---
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 Dilation of pancreatic duct 1. Have you ever had a/an EUS & ERCP before? Unknown Thinks EGD If yes, did you have any problems with the procedure? No What type of sedation was used: Other: Unsure 2. Do you take any blood thinners or have you been diagnosed with a bleeding disorder that increases your risk of bleeding with procedures? Yes: Type: Plavix 3. Do you have a Pacemaker or Defibrillator device? No 4. Are you a diabetic? Yes: Controlled by diet or medication? Medication 5. Do you have any Allergies to Eggs, Latex or Medications? No 6. Do you take any Oral Iron Supplements (Including multi-vitamins)? No 7. Do you have a history of three or more abdominal surgeries? No 8. Have you had a problem with sedation or anesthesia? No 9. Do you use a c-pap machine or oxygen tank? C-Pap 10. Do you take prescription narcotic pain medications, including suboxone or methodone? No 11. Do you have a preference regarding the gender of your provider? Yes: Male Advanced 12. Is there any other information you would like to us to note for the provider and nursing team who will perform your case? No 13. Say to patient: You must have a responsible alliance party who will drive you to your procedure, stay oncampus for the entire duration of your procedure, and drive you home from your procedure? *Please Verify the height and weight, and adjust if height and/or weight have changed* Estimated body mass index is 34.39 kg/m?? as calculated from the following: Height as of 05/23/21: 180.3 cm (5' 10.98). Weight as of 05/23/21: 111.8 kg (246 lb 7.6 oz). Age:71 y.o. documented in this encounter Plan of Treatment Upcoming Encounters Date Type Department Care Team (Late st Contact Info) Description 10/11/2023 10:00 AM EDT Tech Visit [place] [phone] Giacomo Queen 10/11/2023 11:15 AM EDT Office [place] [address] Basim Barr MD [facility] [place] [address] 10/18/2023 9:00 AM EDT Office Visit Hematology/Oncology at [address] [phone] Cl Hess MD [facility] [place] [address] Yessi Renee [address] HEMATOLOGY AND ONCOLOGY [place], [place] [id number] 10/18/2023 9:30 AM EDT Infusion Hematology Oncology at [address] [phone] 10/24/2023 9:30 AM EDT Scheduled View Only Radiation Oncology at [address] [phone] [facility] 10/24/2023 10:00 AM EDT Office Visit Radiation Oncology at [address] [phone] Bigg Peters MD [address] [place] [address] DR RADIATION ONCOLOGY [place], [place] [id number] 11/01/2023 9:00 AM EDT Office Visit Hematology/Oncology at [address] [phone] Cl Hess MD [facility] [place] [address] Yessi Renee [address] HEMATOLOGY AND ONCOLOGY [place], [place] [address] 11/01/2023 9:30 AM EDT Infusion Hematology Oncology at [address] [phone] 12/24/2023 1:00 PM EDT TH Visit (TeleHealth) Radiation Oncology at [address] [phone] Ping Moore PA [facility] [place] [address] documented as of this encounter Visit Diagnoses Not on filedocumented in this encounter Care Teams Sleeping Car Porter Relationship Specialty Start Date End Date Alo Carey DO [address] [place] [address] [place] [phone] PCP - General Internal Medicine 08/31/20 07/03/23 documented as of this encounter
--- OUTSIDE RECORDS SUMMARY | 2023-10-06 00:42 | XMS_ITS | Encounter Summary ---
Author Organization [facility] Address [facility] [place] [address] Care Team Providers Care Tailor Apprentice Name Role Phone Alo Carey DO Primary Care Provider [phone] Encounter Details Date Type Department Care Team (Late st Contact Info) Description 05/05/2021 Telephone [place] [address] Kushal Aceves MD 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 His last ischemic event was 11/2019 when he had ocular event. 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 Dr Mai from Ortho called me. He is on DAPT and needs a R hip replacement. Given the absence of recent symptoms, the benefit of revascularization of R ICA prior to hip surgery is unclear but will discuss with Ortho. documented in this encounter Plan of Treatment Upcoming Encounters Date Type Department Care Team (Late st Contact Info) Description 10/11/2023 10:00 AM EDT Tech [place] [phone] Giacomo Queen 10/11/2023 11:15 AM EDT Office Visit [place] [phone] Basim Barr MD [facility] [place] [address] 10/18/2023 9:00 AM EDT Office Visit Hematology/Oncology at [address] [phone] Cl Hess MD [facility] [place] [place] [address] Yessi Renee APRN [address] [place] [address] DR HEMATOLOGY AND ONCOLOGY [place], [place] [id number] 10/18/2023 9:30 AM EDT Infusion Hematology Oncology at [address] [phone] 10/24/2023 9:30 AM EDT Scheduled View Only Radiation Oncology at [address] [phone] [facility] 10/24/2023 10:00 AM EDT Office Visit Radiation Oncology at [address] [phone] Bigg Peters MD [address] [place] [address] DR RADIATION ONCOLOGY [place], [place] [address] 11/01/2023 9:00 AM EDT Office Visit Hematology/Oncology at [address] [phone] Cl Hess MD [facility] [place] [address] Yessi Renee APRN [address] [place] [address] DR HEMATOLOGY AND ONCOLOGY [place], [place] [id number] 11/01/2023 9:30 AM EDT Infusion Hematology Oncology at [address] [phone] 12/24/2023 1:00 PM EDT TH Visit (TeleHealth) Radiation Oncology at [address] [phone] Ping Moore PA [facility] DR HEMATOLOGY [place] [address] documented as of this encounter Visit Diagnoses Not on filedocumented in this encounter Care Teams Tailor Apprentice Relationship Specialty Start Date End Date Alo Carey DO [address] [place] [address] [place] [phone] PCP - General Internal Medicine 08/31/20 07/03/23 documented as of this encounter
--- OUTSIDE RECORDS SUMMARY | 2023-10-06 00:42 | XMS_ITS | Encounter Summary ---
[place] [address] Care Team Providers Care Computer Networking Instructor Adjunct Name Role Phone Alo Carey Primary Care Provider [phone] Reason for Visit * Reason Comments Simulation * Auth/Cert Specialty Diagnoses / Procedures Referred [...] Expiration Date Visits Re quested Visits Authorized [id number] 1 Encounter Details Date Type Department Care Team (Late st Contact Info) Description 07/11/2021 3:00 PM EDT Ancillary Appointment [place] [address] Bigg Peters MD [address] [place] [address] DR RADIATION ONCOLOGY [place], [place] [id number] Social History Tobacco Use Types Packs/Day Years [...] Sign Reading Time Taken Comments Blood Pressure 123/71 07/11/2021 2:30 PM EDT Pulse 62 07/11/2021 2:30 PM EDT Temperature 36.5 ??C (97.7 ??F) 07/11/2021 2:30 PM ED T Respiratory Rate 16 07/11/2021 2:30 PM EDT Oxygen Saturation 97% 07/11/2021 2:30 PM EDT Inhaled Oxygen Concentration - - Weight 106.2 kg (234 lb 3.2 oz) 07/11/2021 2:30 PM EDT Height - - Body Mass Index 32.68 05/23/2021 1:47 PM EDT documented in this encounter Patient Instructions * Patient Instructions* Florence Marie RN - 07/11/2021 8:45 AM EDT Radiation Therapy for Prostate Cancer Once you have been diagnosed with prostate cancer you face decisions about how to treat it. This document describes what is involved in treating your prostate cancer with Radiation Therapy here at [facility] Gold Coils (Fiducial Markers) Small gold filaments are placed in your prostate using local anaesthesia. They help your radiation oncologist to plan your radiation and target the radiation accurately. These are permanent. The process for placing these is similar to your biopsy but usually is less uncomfortable. This occurs here in the office setting. Planning A planning session (CT Simulation) These images are used to plan your radiation treatment. At this visit you will receive small tattoo dots on your skin. These help aliza exactly how you willbe lined up on the radiation treatment table. You will also be asked to have a comfortably full bladder for this simulation and for each radiation treatment. Urine in your bladder helps protect your bladder tissue from the radiation and helps keep some of your bowel out of the treatment area. About 2 weeks after simulation you will begin radiation treatments. What to Expect During Treatments. Treatments are given in 15-30 minutes increments daily Saturday through Saturday during the hours of 7:30 am- [address] yourself to and from these appointments. You may request a certain time of day that is convenient for you. You may start feeling some side effects after a couple weeks. Side effects result from the radiation causing your prostate to swell and irritating cells near your prostate or the prostate bed area. These may include some changes in your urination. It may become more difficult to start your flow. You may need to void more often. Your stream may be weaker. You may have some discomfort when you urinate. Please tell the nurse or your doctor if you experience any of these symptoms. You may notice a change in your bowel patterns. Your bowel movements may be more frequent and/or loose. If you develop bowel symptoms, please let the nurse or your doctor know. Please ask the nurse or your doctor if you have any questions or concerns about your personalized course of treatment. Section of Radiation Oncology Your physician: Dr. Bigg Peters Our normal business hours are- Saturday - Saturday 8 AM to 5 PM for [facility] for [facility] If you have questions about your radiation appointments please ask to speak to one of our secretarystaff. If you have questions for a nurse about radiation treatments, radiation side effects or you are notfeeling well it is best to call early in the day. This allows a nurse to return your call by 5 PM the same day. If you call after 4 PM, a nurse will return your call by 5 PM the following day, unlessit is urgent. A Radiation Oncology doctor is economic development coordinator after our normal hours and on weekends. To call for urgent medical issues from radiation treatments that can not wait until normal business hours, please call and have the fur machine operator page the Radiation Oncologist economic development coordinator. documented in this encounter Progress Notes * Bigg Peters MD - 07/11/2021 3:00 PM EDT Simulation Note for External Beam Radiation Treatment Planning [facility] Jae Sadler is a 71 y.o. year old male with high risk prostate cancer who was simulated for definitive radiotherapy to the pelvis and prostate today. No changes were made from the plan as documented in the original simulation order and instructions. After confirming informed consent, a retrograde urethrogram was performed using a small amount of contrast dye, and then a 2.5mm slice thickness CT scan of the patient's pelvis was obtained. This scan was performed to delineate both target volumes and organs/structures at risk. These images will beused to create a customized treatment plan employing multileaf collimators and beams-eye view to treat the target to prescription dose while maximally sparing organs at risk, with the overall goal ofmaximizing the likelihood of a favorable disease response while minimizing the likelihood of any short term side effects or press tender long goods complications of therapy. I anticipate his prescription dose will be 70 Gy to the prostate, delivered in daily 2.5 Gy fractions over the course of 9.5 weeks. Anticipate therapy to begin within the next 10 days. Furthermore, Ianticipate this patient will require IMRT or VMAT treatment planning and delivery as the critical treatment volume of interest (in this case, pelvic lymphatics, seminal vesicles, and prostate) is/areirregular and in close proximity to sensitive structures which must be protected (including his femurs, bladder, rectum, small bowel, and penile bulb). The patient tolerated this procedure well, and was provided instructions with regard to upcoming appointments. documented in this encounter Plan of Treatment Upcoming Encounters Date Type Department Care Team (Late st Contact Info) Description 10/11/2023 10:00 AM EDT Tech Visit [place] [address] Giacomo Queen 10/11/2023 11:15 AM EDT Office Visit [place] [address] Basim Brar MD [facility] [place] [address] 10/18/2023 9:00 AM EDT Office Visit Hematology/Oncology at [address] [phone] Cl Hess MD [facility] [place] [address] Yessi Renee APRN [address] [place] [address] DR [place]OLOGY [place] [address] 10/18/2023 9:30 AM EDT Infusion Hematology Oncology at [address] [phone] 10/24/2023 9:30 AM EDT Scheduled View Only Radiation Oncology at [address] [phone] Jeronimo NurseSt Deutsch 10/24/2023 10:00 AM EDT Office Visit Radiation Oncology at [address] [phone] Bigg Peters MD [address] [place] [address] DR RADIATION ONCOLOGY [place], [place] [address] 11/01/2023 9:00 AM EDT Office Visit Hematology/Oncology at [address] [phone] Cl Hess MD [facility] [place] [address] Yessi Renee APRN [address] [place] [address] DR HEMATOLOGY AND ONCOLOGY [place], [place] [address] 11/01/2023 9:30 AM EDT Infusion Hematology Oncology at [address] [phone] 12/24/2023 1:00 PM EDT TH Visit (TeleHealth) Radiation Oncology at [address] [phone] Ping Moore PA [facility] HEMATOLOGY [place] [address] Scheduled Orders Name Type Priority Associated Diagnoses Orde r Schedule Simulation for Radiation Therapy Planning Procedures Routine Malignant neoplasm of prostate Ordered: 04/04/2021 documented as of this encounter Visit Diagnoses Not on filedocumented in this encounter Care Teams Computer Networking Instructor Adjunct Relationship Specialty Start Date End Date Alo Carey DO [address] [place] [address] [place] [address] PCP - General Internal Medicine 08/31/20 07/03/23 documented as of this encounter
--- OUTSIDE RECORDS SUMMARY | 2023-10-06 00:42 | XMS_ITS | Encounter Summary ---
Author Organization [facility] [place] [address] Care Team Providers Care Landing Gear Mechanic Name Role Phone Alo Carey Primary Care Provider [phone] Encounter Details Date Type Department Care Team (Late Contact Info) Description 05/04/2021 11:00 AM EST Laboratory [place] [phone] Social History Tobacco Use Types Packs/Day Years [...] AM EDT Tech [place] [phone] Giacomo Queen 10/11/2023 11:15 AM EDT Office Visit [place] [phone] Basim Barr MD [facility] [place] [address] 10/18/2023 9:00 AM EDT Office Visit Hematology/Oncology at [address] [phone] Cl Hess MD [facility] [place] [address] Yessi Renee, [address] HEMATOLOGY AND ONCOLOGY [place], [place] [phone] 10/18/2023 9:30 AM EDT Infusion Hematology Oncology at [address] [phone] 10/24/2023 9:30 AM EDT Scheduled View Only Radiation Oncology at [address] [phone] Jeronimo Bowen, [place] 10/24/2023 10:00 AM EDT Office Visit Radiation Oncology at [address] [phone] Bigg Peters MD [address] [place] [address] DR RADIATION ONCOLOGY [place], [place] [address] [phone] 11/01/2023 9:00 AM EDT Office Visit Hematology/Oncology at [address] [phone] Cl Hess MD [facility] [place] [address] Yessi Renee, [address] HEMATOLOGY AND ONCOLOGY [place], [place] [address] 11/01/2023 9:30 AM EDT Infusion Hematology Oncology at [address] [phone] 12/24/2023 1:00 PM EDT TH Visit (TeleHealth) Radiation Oncology at [address] [phone] Ping Moore PA [facility] DR [place] [address] documented as of this encounter Visit Diagnoses Not on filedocumented in this encounter Care Teams Landing Gear Mechanic Relationship Specialty Start Date End Date Alo Carey DO [address] [place] [address] [place] [phone] PCP - General Internal Medicine 08/31/20 07/03/23 documented as of this encounter
--- OUTSIDE RECORDS SUMMARY | 2023-10-06 00:42 | XMS_ITS | Encounter Summary ---
Author Organization [facility] Address [facility] [place] [address] Care Team Providers Care Tractor Trailer Technician Name Role Phone Alo Carey Primary Care Provider [phone] Encounter Details Date Type Department Care Team (Latest Contact Info) Description 05/04/2021 10:00 AM EST Office [place] [address] Ismael Wu MD [facility] [place] [address] Primary osteoarthritis of right hip Social History [...] Sign Reading Time Taken Comments Blood Pressure 164/83 05/04/2021 9:36 AM EST Pulse 74 05/04/2021 9:36 AM EST Temperature - - Respiratory Rate - - Oxygen Saturation 97% 05/04/2021 9:3 6 AM EST Inhaled Oxygen Concentration - - Weight 111.8 kg (246 lb 7.6 oz) 05/04/2021 9:36 AM EST per patient from CT scan 2 days ago Height 180.3 cm (5' 11) 05/04/2021 9:3 6 AM EST Body Mass Index 34.38 05/04/2021 9:36 AM EST documented in this encounter Progress Notes * Lor Chirinos RN - 05/04/2021 10:00 AM EST Arthroplasty History/Previous Orthopaedic Surgery: 1: Bilateral total knee arthroplasties done at outside hospital 2: Left total hip arthroplasty done through posterior approach with Dr. Wu on 10/10/2020 This note is recorded by Lor Chirinos RN acting as a scribe for Dr. Malaika Wu. PREOPERATIVE VISIT Interval History: Wero Sadler is a pleasant 71 y.o. year old male being seen today to discuss a right total hip replacement. His history was once again discussed and is outlined in a previous note. They have reviewed their options and at this point are expressing a desire to proceed with surgery. Physical Exam: Exam is previously documented in a note and is essentially unchanged. Hip Exam: Clinical Leg Length Discrepancy - left is longer by 0.5 cm Inspection of his skin on the operative side demonstrates No skin breakdown or open wounds. Significant Medical Comorbidities Patient Active Problem List Diagnosis Code ??? [...] G47.33 ??? BPH (benign prostatic hyperplasia) N40.0 VITALS: BP Readings from Last 1 Encounters: 05/04/21 164/83 Pulse Readings from Last 1 Encounters: 05/04/21 74 Height: 180.3 cm (5' 11) Weight: 111.8 kg (246 lb 7.6 oz) (per patient from CT scan 2 days ago) Body mass index is 34.38 kg/m??. Relevant Lab Studies Lab Results Component Value Date WBC 13.5 (H) 10/11/2020 HGB 12.4 (L) 10/11/2020 HCT 36.7 (L) 10/11/2020 PLATELET 187 10/11/2020 CREATININE 0.51 (L) 02/02/2021 BUN 13 02/02/2021 NA 136 02/02/2021 K 4.1 02/02/2021 INR 1.0 10/06/2020 No results for input(s): HA1C in the last 7068 hours. No results for input(s): ALBUMIN in the last 168 hours. CrCl cannot be calculated (Patient's most recent lab result is older than the maximum 30 days allowed.). TJA Clotting and Bleeding Assessment Genetic predisposition or history of DVT or PE: No Hypercoaguable state?: No History of bleeding disorder?: No GI bleed or history of hemorrhagic stroke within the past 2 years: No Patient on lifelong anticoagulant for other reasons: Other, see comment (Plavix and ASA 81mg for Prevention) Discharge anticoagulation plan: PEPPER Infection Prevention Patient demonstrated appropriate skin integrity/infection knowledge level after instructions provided: Yes Patient demonstrated appropriate dental prophylaxis knowledge level after instructions provided: Yes Patient demonstrated appropriate understanding of chlorhexideine wash and mupirocin ointment: Yes General Assessment Total joint preparedness for surgery: Received binder, 1:1 Patient understands when to call the office pre-op and post-op: Verbalizes understanding Assistive device(s) used pre-op: None Patient currently on narcotics: No Patient has narcotic agreement signed: No Assessment and Plan: This is a pleasant 71 y.o. year-old male who presents for a preoperative appointment today for consideration of a right total hip replacement. We had a discussion regarding the risks and benefits of surgery. I indicated that in my opinion, this is a treatment option most likely to restore a more normal, pain- free level of function and that we have exhausted reasonable non-operative alternatives. I discussed how I perform the procedure and all of their questions were answered. We discussed the risks of a total hip arthroplasty: Bleeding, infection, scar formation, dislocation, leg length inequality, persistent pain, stiffness, bursitis, failure/wear/loosening/breakage of implants, implant malposition, need for additional/future surgery, fracture, clot formation, embolus,stroke, nerve palsy, blood vessel injury, skin numbness, anesthetic and/or medical complications, . We reviewed options for postoperative DVT prophylaxis, based on AAOS guidelines. We discussed the pros and cons of different anticoagulants in terms of effectiveness and clot / embolus preventions vs. risks of bleeding and wound complications. We also reviewed their preferences regarding use of blood products and confirmed that while we would endeavor to minimize the risks of needing any transfusions, if circumstances were such that one ormore were indeed required, he would NOT refuse a blood transfusion. Wero Sadler will be prescribed a prescription opioid for the treatment of acute post-operative pain related to orthopedic surgery. Wero Sadler was advised to take the smallest dose possible to control their pain and as their pain improves to take smaller doses and increase the time between doses. The Acute Opioid Therapy Informed Consent form has been completed and sent to medical records for scanning to chart. Opioid Risk Assessment 05/04/2021 10/06/2020 DAST-10 Risk Assessment None (0) None (0) Some recent data might be hidden Opioid PDMP 05/04/2021 10/06/2020 [place] PDMP Query Date 05/04/2021 10/06/2020 [place] PDMP Query Date 05/04/2021 10/06/2020 [place] PDMP Query Date 05/04/2021 10/06/2020 In addition to this medication, non-opioid medications will be prescribed for adjunct treatment of their pain. Non-pharmacological treatment such as ice, elevation and activity modification was recommended as appropriate. Wero Sadler was instructed to administer Mupirocin into the nares twice daily starting 5 days prior to surgical date. Additional instructions were given to him at the time the medication was dispensed. He was also given chlorhexidine soap to use the night before and the morning of surgery. We discussed with the patient the possible discharge scenarios. The patient will require VNA services post-op: yes, patient/caregivers were educated about their right to choose where referrals are placed patient lives in [place], no preference on VNA. Prep for Surgery Advance Directive: Has one (will bring in copy) Recommend referral to Patient Financial Services: No Living arrangement: House Home layout: Two level, Able to live on main level Number of stairs within home: 13 Who will provide post-op care and support: Brother (Sergio Sadler) Who will provide transportation home: Brother (Damian Sadler) Patient's desired discharge disposition: Home with VNA The patient prefers two-wheeled walker to help with post-operative ambulation. The patient has a walker and will bring it to surgery. Recommendations from Dr. Mai: Pending Note Post operative orthopaedic anti-coagulation plan: CORNELIUS Ferraro Chronic anti-coagulation: yes, preventative Does patient have metal allergy? No Expedited Discharge Candidate?: NO We discussed using Celebrex while in house. Upon discharge we will give the patient Naprosyn to take for 6 weeks after surgery for post-operative pain management. Any remaining questions were solicited from the patient and answered. Mr. Sadler wishes to proceed accordingly and informed consent was subsequently obtained for a right total hip replacement. I have personally evaluated the patient and agree with the above note as recorded by Lor Chirinos RN The nature and purpose of the total hip replacement, alternative method(s) of treatment, the material risks involved, and the possibility of complications were fully explained to the patient. The patient does NOT have any of the following contraindications to JIMI: ? Active infection of the hip joint, OR ? Active systemic bacteremia, OR ? Active skin infection or open wound at surgical site, OR ? Neuropathic arthritis, OR ? Severe, rapidly progressive neurological disease, OR ? Severe medical condition that makes risks of the surgery outweigh the potential benefit The patient was told the most common risks and complications associated with a total hip replacement include, but are not limited to: blood clots in the leg, fatal pulmonary embolism, dislocation of the prosthesis, intraoperative and postoperative fractures of the femur or acetabulum, infection, failure of the prosthesis or grafting materials, complications from anesthesia, reactions to blood transfusions, postoperative leg length inequality, instability of the hip replacement, nerve damage or injury, vascular injury, delayed wound healing, infection, other injury or even . In addition, there are risks associated with anesthesia given during this operation. Also, the patient was told that after undergoing a total hip replacement there may still be persistent pain or disability. I highlighted the risks that are particularly important for this specific patient: These include infection, wound healing problems, joint instability, leg length discrepancy, neurovascular injury, thigh numbness. The patient was informed that the success of this operation in part depends upon the mechanical devices which are going to be implanted and that these devices can fail or malfunction, and may need tonia repaired or replaced and there are no guarantees as to the longevity of this device or its partsand that it or its parts could fail prematurely. The patient was also notified that during the course of surgery, there may be a need to use bone graft from donors, and that any bone graft used will be carefully screened for communicable diseases, including AIDS, hepatitis, Adarsh-Creutzfeldt, or other diseases, but despite the screening procedures, there is a small chance that they could contract one of these diseases. Finally, the patient was asked to follow completely and fully with all advice and recommended treatments, and that recovery and ultimate outcome are affected by their compliance with recommended treatment. We discussed the risks, benefits and treatment alternatives, and he is interested in proceeding with surgery. Malaika Wu MD 05/04/2021 documented in this encounter Plan of Treatment Upcoming Encounters Date Type Department Care Team (Late st Contact Info) Description 10/11/2023 10:00 AM EDT Tech [place] [address] Giacomo Queen 10/11/2023 11:15 AM EDT Office [place] [address] Basim Barr MD [facility] [place] [address] 10/18/2023 9:00 AM EDT Office Visit Hematology/Oncology at [address] [phone] Cl Hess MD [facility] [place] [address] Yessi Renee APRN [address] [place] [address] DR HEMATOLOGY AND ONCOLOGY [place], [place] [phone] 10/18/2023 9:30 AM EDT Infusion Hematology Oncology at [address] [phone] 10/24/2023 9:30 AM EDT Scheduled View Only Radiation Oncology at [address] [phone] Jeronimo NurseSt Deutsch 10/24/2023 10:00 AM EDT Office Visit Radiation Oncology at [address] [phone] Bigg Peters MD [address] [place] [address] DR RADIATION ONCOLOGY [place], [place] [phone] 11/01/2023 9:00 AM EDT Office Visit Hematology/Oncology at [address] [phone] Cl Hess MD [facility] [place] [address] Yessi Renee APRN [address] [place] [address] DR HEMATOLOGY AND ONCOLOGY [place], [place] [phone] 11/01/2023 9:30 AM EDT Infusion Hematology Oncology at [address] [phone] 12/24/2023 1:00 PM EDT TH Visit (TeleHealth) Radiation Oncology at [address] [phone] Ping Moore PA [facility] DR [place] [address] documented as of this encounter Visit Diagnoses Diagnosis Primary osteoarthritis of right hip Primary localized osteoarthrosis, pelvic region and thigh documented in this encounter Administered Medications Inactive Administered Medications - up to 3 most recent administrations Medication Order MAR Action Action Date Dose Rate Site mupirocin (Bactroban) 2 % ointment 1 each 1 each, Topical (Top), 2 TIMES DAILY, First dose on Ammy 05/04/21 at 1130, 10 doses, Last dose on Sat05/08/21 at 2100, Apply two times daily to nares for 5 days prior to surgery Given 05/04/2021 11:11 AM EST 1 each documented in this encounter Care Teams Tractor Trailer Technician Relationship Specialty Start Date End Date Alo Carey DO [address] [place] [address] [place] [phone] PCP - General Internal Medicine 08/31/20 07/03/23 documented as of this encounter
--- OUTSIDE RECORDS SUMMARY | 2023-10-06 00:42 | XMS_ITS | Encounter Summary ---
Author Organization [facility] [place] [address] Care Team Providers Care Stringed Instrument Tuner Name Role Phone Cherry Alo Lon RUTHERFORD Primary Care Provider Reason for Referral * Consultation (Urgent) - Closed Specialty Diagnoses / Procedures Referred By Marques livingston Referred To Contact Vascular Surgery Diagnoses Carotid artery stenosis, symptomatic, right Pedro Mai MD [facility] [place] [address] [facility] Vascular Surg [address] [place] [address] Referral ID Status Reason Start Date Expiration Date V isits Requested Visits Authorized [id number] Closed Consult, Test & Treat 05/05/2021 05/05/2022 1 1 Encounter Details Date Type Department Care Team (Late st Contact Info) Description 05/05/2021 Orders [place] [address] [facility] [place] [address] Carotid artery stenosis, symptomatic, right Social History Tobacco Use Types Packs/Day Years [...] AM EDT Tech [place] [address] Giacomo Queen 10/11/2023 11:15 AM EDT Office Visit [place] [phone] [facility] [place] [address] 10/18/2023 9:00 AM EDT Office Visit Hematology/Oncology at [address] [phone] [facility] [place] [address] Yessi Renee APRN [address] [place] [address] DR HEMATOLOGY AND ONCOLOGY [place], [place] [id number] 10/18/2023 9:30 AM EDT Infusion Hematology Oncology at [address] [phone] 10/24/2023 9:30 AM EDT Scheduled View Only Radiation Oncology at [address] [phone] [facility] 10/24/2023 10:00 AM EDT Office Visit Radiation Oncology at [address] [phone] Bigg Peters MD [address] [place] [address] DR RADIATION ONCOLOGY [place], [place] [id number] 11/01/2023 9:00 AM EDT Office Visit Hematology/Oncology at [address] [phone] [facility] [place] [address] Yessi Renee APRN [address] [place] [address] DR HEMATOLOGY AND ONCOLOGY [place], [place] [address] 11/01/2023 9:30 AM EDT Infusion Hematology Oncology at [address] [phone] 12/24/2023 1:00 PM EDT TH Visit (TeleHealth) Radiation Oncology at [address] [phone] [facility] DR HEMATOLOGY [place] [address] Scheduled Referrals Name Type Priority Associated Diagnoses Orde r Schedule Referral to Vascular Surgery Outpatient Referral Routine Carotid artery stenosis, symptomatic, right Ordered: 05/05/2021 documented as of this encounter Visit Diagnoses Diagnosis Carotid artery stenosis, symptomatic, right documented in this encounter Care Teams Stringed Instrument Tuner Relationship Specialty Start Date End Date Alo Carey DO [address] [place] [address] [place] [phone] PCP - General Internal Medicine 08/31/20 07/03/23 documented as of this encounter
--- OUTSIDE RECORDS SUMMARY | 2023-10-06 00:42 | XMS_ITS | Encounter Summary ---
[place] [address] Care Team Providers Care Crop Specialist Name Role Phone Alo Carey Primary Care Provider [phone] Reason for Referral * Diagnostic Test (Routine) - Closed Specialty Diagnoses / Procedures Referred By Marques livingston Referred To Contact Radiology Diagnoses Malignant neoplasm of prostate Procedures MRI Pelvis wo (Prostate) Bigg Peters MD [address] [place] [address] [place] [address] [place] [address] Referral ID Status Reason Start Date Expiration Date V isits Requested Visits Authorized [id number] Closed Specialty Service Requested 04/11/2021 10/09/2022 1 1 Reason for Visit * Auth/Cert [...] Expiration Date Visits Re quested Visits Authorized [id number] 1 1 Encounter Details Date Type Department Care Team (Latest Contact Info) Description 07/11/2021 12:43 PM EDT - 07/11/2021 11:59 PM EDT Hospital Encounter [facility] [place] [address] Bigg Peters MD [address] [place] [address] [place] [address] Malignant neoplasm of prostate Discharge Disposition: Home Social History Tobacco Use [...] 07/17/2021 07/21/2021 levoFLOXacin (LEVAQUIN) 500 mg TabletIndications:Maggie gnant neoplasm of prostate Take 1 hour prior [...] AM EDT Tech [place] [address] Giacomo Queen 10/11/2023 11:15 AM EDT Office [place] [address] Basim Barr MD [facility] [place] [address] 10/18/2023 9:00 AM EDT Office Visit Hematology/Oncology at [address] [phone] Cl Hess MD [facility] [place] [address] Yessi Renee APRN [address] [place] [address] DR HEMATOLOGY AND ONCOLOGY [place], [place] [id number] 10/18/2023 9:30 AM EDT Infusion Hematology Oncology at [address] [phone] 10/24/2023 9:30 AM EDT Scheduled View Only Radiation Oncology at [address] [phone] [facility] 10/24/2023 10:00 AM EDT Office Visit Radiation Oncology at [address] [phone] Bigg Peters MD [address] [place] [address] DR RADIATION ONCOLOGY [place], [place] 1291[address] 11/01/2023 9:00 AM EDT Office Visit Hematology/Oncology at [address] [phone] Cl Hess MD [facility] [place] [address] Yessi Renee APRN [address] [place] [address] [place] [address] 11/01/2023 9:30 AM EDT Infusion Hematology Oncology at [address] [phone] 12/24/2023 1:00 PM EDT TH Visit (TeleHealth) Radiation Oncology at [address] [phone] Ping Moore PA [facility] [place] [address] documented as of this encounter Procedures Procedure Name Priority Date/Time Associated Diagnosis Comments MRI PELVIS WO (PROSTATE) Routine 07/11/2021 2:01 PM EDT Malignant neoplasm of prostate documented in this encounter Results * MRI Pelvis wo (Prostate) (07/11/2021 2:01 PM EDT) Anatomical Region Laterality Modality Pelvis Magnetic Resonan ce Impressions 07/12/2021 5:26 PM EDT MRI for radiation treatment planning purposes. Expected findings. Thank you for letting us participate in the care of this patient. ??If you are a health care provider and have any questions regarding this report, please contact the number below. ??For patients who have questions please contact the health group care worker that requested your imaging first. ? Electronically signed by: Madan Angel MD, [facility] ([phone]), at 07/12/2021 5:26 PM Narrative 07/12/2021 5:26 PM EDT EXAMINATION: MRI PELVIS WO (PROSTATE) CLINICAL HISTORY: prostate cancer s/p ADT and fiducial marker placement. MRI for radiation planning, please use volumetric study sequence if possible (e.g. CORTES or the like) TECHNIQUE: MRI of the prostate without contrast. COMPARISON: Prostate MRI 11/17/2020 FINDINGS: The prostate measures 3.7 x 3.9 x 4.4 cm for calculated volume of 33.0 cc. Prostate fiducial markers are in place. No pelvic lymphadenopathy. No osseous metastases identified. Unremarkable appearance of the urinary bladder and the rectum. Metallic artifact from left hip prosthesis. Procedure Note Madan Angel MD - 07/12/2021 EXAMINATION: MRI PELVIS WO (PROSTATE) CLINICAL HISTORY: prostate cancer s/p ADT and fiducial marker placement.MRI for radiation planning, please use volumetric study sequence if possible (e.g.CORTES or the like) TECHNIQUE: MRI of the prostate without contrast. COMPARISON: Prostate MRI 11/17/2020 FINDINGS: The prostate measures 3.7 x 3.9 x 4.4 cm for calculated volume of 33.0cc. Prostate fiducial markers are in place. No pelvic lymphadenopathy. Noosseous metastases identified. Unremarkable appearance of the urinary bladder andthe rectum. Metallic artifact from left hip prosthesis. IMPRESSION MRI for radiation treatment planning purposes. Expected findings. Thank you for letting us participate in the care of this patient. If youare a health care provider and have any questions regarding this report,please contact the number below. For patients who have questions please contactthe health group care worker that requested your imaging first. Bigg Peters MD [facility] MRI ORDERABLES documented in this encounter Visit Diagnoses Diagnosis Malignant neoplasm of prostate documented in this encounter Care Teams Crop Specialist Relationship Specialty Start Date End Date Alo Carey DO [address] [place] [address] [place] [phone] PCP - General Internal Medicine 08/31/20 07/03/23 documented as of this encounter
--- OUTSIDE RECORDS SUMMARY | 2023-10-06 00:42 | XMS_ITS | Encounter Summary ---
Author Organization [facility] [place] [address] Care Team Providers Care Meat Sales And Storage Manager Name Role Phone Alo Carey Primary Care Provider [phone] Encounter Details Date Type Department Care Team (Late st Contact Info) Description 06/28/2021 Notes Only Radiation Oncology at [address] [phone] Bigg Peters MD [address] [place] [address] [place] [address] Social History Tobacco Use Types [...] as of this encounter Progress Notes * Juli Tripathi RN - 06/28/2021 3:29 PM EDT Patient information for gold coil prostate placement Individual involved with teaching: [ ] via phone [x ] in person Patient [ x ] spouse [ ] Other [ ] Procedure Date: 07/05/21 Arrival Time: 0800 Time of Procedure: 08:45 Location: [facility] Why gold coils? You and your doctor have discussed treatment options and have decided that Gold coils would be helpful in your external beam radiation treatment. The coil is a small 24 karat gold coil that will sit within the prostate and help to locate it on the planning CT scan. Usually 4 coils are used...2 on each side of the gland. WHY DO I NEED A SPACEOAR IMPLANT? ?? The SpaceOAR will help avoid rectal injury during radiation treatment. ?? The space between the prostate and the rectum can be increased by an absorbable gel spacer. ?? The SpaceOAR System is a soft gel-like material that temporarily moves the rectum 1/2 away fromthe high dose radiation area protecting the rectum. It will stay in your body for three months while you are receiving your radiation treatment, and is then naturally absorbed by your body and cleared in your urine in approximately six months. THE WEEK BEFORE THE PROCEDURE: STOP TAKING BLOOD THINNERS Stop taking medications that might thin your blood(anticoagulants) 1 week before your cold coil is scheduled to be placed i.e.;aspirin, ibuprofen, gingko biloba, Coumadin, Lovenox, etc. Please ask ifyou are not sure about any of your medications. For you this means stop taking [ aspirin ] Prescriptions to get filled: Navid chan [place] Prescription for Antibiotic: to prevent infection [ x ]Levofloxacin 500 mg 1 hour before the procedure. [ provided by clinic ]2 fleet enemas- you will need to pick this up over the encounter. No prescription needed. Prescription to help you relax ( optional, if needed) [pt declined ] Prescription for steroid: to prevent swelling at implant site. [ x ]dexamethasone : starting the day of the procedure: 2 mg twice a day for 3 days then 2 mg once a day for 3 days > Start day of procedure once you get back home. THE DAY BEFORE THE PROCEDURE: ?? Eat a normal dinner (evening meal) ?? Administer one fleets enema before bedtime THE MORNING AND DAY OF THE PROCEDURE: ?? Administer the second fleets enema (2-3 hours prior to scheduled time of procedure) ?? Eat a normal meal and take your usual daily medications (except anticoagulants) ?? Take antibiotic levofloxacin 1 hour prior to procedure. ?? If ordered: take Lorazepam 1 mg , po 1 hour prior to procedure. Plan to arrive in the Radiation/Oncology Department 30 minutes before scheduled procedure. See above arrival time. You will be asked to change in to a hospital gown (remove everything from your waist down.) How is procedure done? You will be brought into a procedure room and asked to lie on your back with your legs placed in leg supports.. After application of lidocaine lubricant, an ultrasound probe will be inserted into your rectum in order to visualize your prostate gland. After you are given a local anesthetic, the 2 needles containing the coils will be gently inserted through the skin into your prostate gland. AFTER THE GOLD COIL PROCEDURE: ?? You may resume normal activity ( no bike riding, horse back riding, snowmobiling, or ATV riding for a couple days to avoid discomfort) ?? You may resume intercourse in 1 week ?? You may take extra-strength or regular Tylenol for any discomfort. ?? Start dexamethasone as directed. 1 pill twice a day for 3 days, then 1 pill once a day for 3 days. Always take this medication with food. Avoid taking too late in the evening as it may causes insomnia. It may cause temporary elevation of blood sugar for diabetic patients. ?? You nargis resume any NSAIDs 48 hours after the procedure. Call us if you notice any unusual swelling ,difficulty with urination, pain or if you have any other concerns. Future Appointments: ?? MRI : You will receive separate instructions specifically from the [facility] concerning your exact arrival time and what you need to do to prepare for this. Date: 07/11 around 1:00 ?? Your planning session (simulation) will be done at : [ x ] [facility] at the Radiation Oncology Department section 2K [ ] [facility] [place], [place] [Date: 07/11/21 ] [Time:arrive at 2:30 ] For proper visualization of prostate, it is required that you have a moderately full bladder. This will require you to arrive 30 minutes before scheduled appointment and drink 2 glasses of water upon arrival. There are no restrictions with eating. Patient was provided a printed copy of these instructions. He states he can not read them because of his visual disability, but his brother will review it too. This was reviewed with him. He states his questions have been answered and he verbalized understanding of these instructions. How to reach us: [facility] [phone] For weekends and after hours: Call [facility] ask for the cardiac catheterization technologist radiation oncologis documented in this encounter Plan of Treatment Upcoming Encounters Date Type Department Care Team (Late st Contact Info) Description 10/11/2023 10:00 AM EDT Tech [place] [phone] Giacomo Queen 10/11/2023 11:15 AM EDT Office Visit [place] [phone] Basim Barr MD [facility] [place] [address] 10/18/2023 9:00 AM EDT Office Visit Hematology/Oncology at [address] [phone] Cl Hess MD [facility] [place] [address] Yessi Renee APRN [address] [place] [address] DR HEMATOLOGY AND ONCOLOGY [place], [place] [phone] 10/18/2023 9:30 AM EDT Infusion Hematology Oncology at [address] [phone] 10/24/2023 9:30 AM EDT Scheduled View Only Radiation Oncology at [address] [phone] [facility] 10/24/2023 10:00 AM EDT Office Visit Radiation Oncology at [address] [phone] Bigg Peters MD [address] [place] [address] DR RADIATION ONCOLOGY [place], [place] [phone] 11/01/2023 9:00 AM EDT Office Visit Hematology/Oncology at [address] [phone] Cl Hess MD [facility] [place] [address] Yessi Renee APRN [address] [place] [address] DR HEMATOLOGY AND ONCOLOGY [place], [place] [address] 11/01/2023 9:30 AM EDT Infusion Hematology Oncology at [address] [phone] 12/24/2023 1:00 PM EDT TH Visit (TeleHealth) Radiation Oncology at [address] [phone] Ping Moore PA [facility] HEMATOLOGY [place] [address] documented as of this encounter Visit Diagnoses Diagnosis Malignant neoplasm of prostate documented in this encounter Care Teams Meat Sales And Storage Manager Relationship Specialty Start Date End Date Alo Carey DO [address] [place] [address] [place] [phone] PCP - General Internal Medicine 08/31/20 07/03/23 documented as of this encounter
--- OUTSIDE RECORDS SUMMARY | 2023-10-06 00:42 | XMS_ITS | Encounter Summary ---
Author Organization [facility] [place] [address] Care Team Providers Care Investment Representative Name Role Phone CherryAlo Lon RUTHERFORD Primary Care Provider [phone] Reason for Visit * Consultation (Urgent) - Closed Specialty Diagnoses / Procedures Referred By Marques livingston Referred To Contact Vascular Surgery Diagnoses Carotid artery stenosis, symptomatic, right Pedro Mai MD [facility] [place] [address] [facility] [place] [address] [address] Referral ID Status Reason Start Date Expiration Date V isits Requested Visits Authorized [id number] Closed Consult, Test & Treat 05/05/2021 05/05/2022 1 1 Encounter Details Date Type Department Care Team (Late st Contact Info) Description 05/23/2021 2:00 PM EDT Office [place] [address] Basim Barr MD [facility] [place] [address] Stenosis of carotid artery, unspecified [...] Sign Reading Time Taken Comments Blood Pressure 145/71 05/23/2021 1:47 PM EDT Pulse 75 05/23/2021 1:47 PM EDT Temperature - - Respiratory Rate - - Oxygen Saturation 97% 05/23/2021 1:47 PM EDT Inhaled Oxygen Concentration - - Weight 111.8 kg (246 lb 7.6 oz) 05/23/2021 1:47 PM EDT Height 180.3 cm (5' 10.98) 05/23/2021 1:47 PM E DT Body Mass Index 34.39 05/23/2021 1:47 PM EDT documented in this encounter Progress Notes * Basim Barr MD - 05/23/2021 2:00 PM EDT OUTPATIENT VASCULAR SURGERY CONSULTATION Reason for Visit: R ICA stenosis History of Present Illness: This is a 71 y.o. Male with decreased vision R eye and severe R ICA stenosis following CEA. Outside CTA from [facility] reviewed and shows a high grade right ICA stenosis and a moderate right petrous and cavernous stenoses. His last ischemic event was 11/2019 when he had ocular event. Note from Vascular surgeon in [place] who did his R CEA I believe [...] DAPT and needs a R hip replacement. reports that he quit smoking about 29 [...] accident Z86.73 ??? History of claudication Z86.79 Current Outpatient Medications: ??? timoloL (Timoptic) 0.25 % Drops, Apply 1 drop to eye Twice daily., Disp: , Rfl: ??? carvediloL (Coreg) 25 mg Tablet, Take 25 mg by mouth 2 times daily (with meals)., Disp: , Rfl: ??? glimepiride (Amaryl) 1 mg Tablet, daily., Disp: , Rfl: ??? atorvastatin (Lipitor) 40 mg Tablet, Daily., Disp: , Rfl: ??? clopidogreL (Plavix) 75 mg Tablet, daily., Disp: , Rfl: ??? metFORMIN (FORTAMET) 500 mg Tablet Extended Rel 24 hr, Take 1,000 mg by mouth 2 times daily (with meals)., Disp: , Rfl: ??? amLODIPine (Norvasc) 10 mg Tablet, Take 10 mg by mouth daily., Disp: , Rfl: ??? aspirin EC 81 mg Tablet, Delayed Release (E.C.), Take 81 mg by mouth daily., Disp: , Rfl: ??? fish oil-omega-3 fatty acids 1,000 mg Capsule, Take 2 g by mouth daily., Disp: , Rfl: Allergies Allergen Reactions ??? Other [Unclassified Drug] Other (See Comments) Had reaction to a dye used during vascular procedure at [facility] in [place]: shaking Has tolerated MRI [...] for Thrombosis, Bleeding Disorders Physical Exam: BP 145/71 (BP Location (NBP): Right arm, Patient Position: Sitting) Pulse 75 Ht 180.3 cm (5' 10.98) Wt 111.8 kg (246 lb 7.6 oz) SpO2 97% BMI 34.39 kg/m?? General - NAD, appears stated age [...] previous visit (from the past 72 hour(s)). Studies: R CUS 05/23/21 ICA Proximal, Right ?PSV (cm/s): 136 ?EDV [...] level is in the mid neck. ?? CTA shows 75% R ICA stenosis No flowsheet data found. Assessment and Plan: Pt with likely symptomatic R ICA stenosis. Plan for R TCAR, discussed risks and beenfits with pt and he would like to proceed. . documented in this encounter Plan of Treatment Upcoming Encounters Date Type Department Care Team (Late st Contact Info) Description 10/11/2023 10:00 AM EDT Tech [place] [phone] Giacomo Queen 10/11/2023 11:15 AM EDT Office [place] [phone] Basim Barr MD [facility] [place] [address] 10/18/2023 9:00 AM EDT Office Visit Hematology/Oncology at [address] [phone] Cl Hess MD [facility] [place] [address] Yessi Renee APRN [address] [place] [address] DR HEMATOLOGY AND ONCOLOGY [place], [place] [id number] 10/18/2023 9:30 AM EDT Infusion Hematology Oncology at [address] [phone] 10/24/2023 9:30 AM EDT Scheduled View Only Radiation Oncology at [address] [phone] [facility] 10/24/2023 10:00 AM EDT Office Visit Radiation Oncology at [address] [phone] Bigg Peters MD [address] [place] [address] [place] [address] 11/01/2023 9:00 AM EDT Office Visit Hematology/Oncology at [address] [phone] Cl Hess MD [facility] [place] [address] Yessi Renee APRN [address] [place] [address] DR HEMATOLOGY AND ONCOLOGY [place], [place] 23[address] 11/01/2023 9:30 AM EDT Infusion Hematology Oncology at [address] [phone] 12/24/2023 1:00 PM EDT TH Visit (TeleHealth) Radiation Oncology at [address] [phone] Ping Moore PA [facility] DR [place] [address] Scheduled Referrals Name Type Priority Associated Diagnoses Orde r Schedule Referral to Vascular Surgery Outpatient Referral Routine Carotid artery stenosis, symptomatic, right Ordered: 05/05/2021 documented as of this encounter Visit Diagnoses Diagnosis Stenosis of carotid artery, unspecified laterality documented in this encounter Care Teams Investment Representative Relationship Specialty Start Date End Date Alo Carey DO [address] [place] [address] [place] [address] PCP - General Internal Medicine 08/31/20 07/03/23 documented as of this encounter
--- OUTSIDE RECORDS SUMMARY | 2023-10-06 00:42 | XMS_ITS | Encounter Summary ---
Author Organization [facility] Address [facility] [place] [address] Care Team Providers Care Hospice Executive Director Name Role Phone Alo Carey DO Primary Care Provider [phone] Encounter Details Date Type Department Care Team (Late Contact Info) Description 05/05/2021 Telephone [place] [address] Pedro Mai MD [facility] [place] [address] Social History Tobacco Use Types Packs/Day Years [...] encounter Miscellaneous Notes * Telephone Encounter - Pedro Mai MD - 05/05/2021 2:33 PM EST Called and updated him on plan for vascular surgery evaluation for his carotid stenosis and with history of vision loss. He assured me that he will arrive to see the vascular surgery here anytime he is scheduled. documented in this encounter Plan of Treatment Upcoming Encounters Date Type Department Care Team (Late st Contact Info) Description 10/11/2023 10:00 AM EDT Tech [place] [phone] Giacmoo Queen 10/11/2023 11:15 AM EDT Office [place] [phone] Basim Barr MD [facility] [place] [address] 10/18/2023 9:00 AM EDT Office Visit Hematology/Oncology at [address] [phone] Cl Hess MD [facility] [place] [address] Yessi Renee APRN [address] [place] [address] DR HEMATOLOGY AND ONCOLOGY [place], [place] [phone] 10/18/2023 9:30 AM EDT Infusion Hematology Oncology at [address] [phone] 10/24/2023 9:30 AM EDT Scheduled View Only Radiation Oncology at [address] [phone] St La Nena Champagne 10/24/2023 10:00 AM EDT Office Visit Radiation Oncology at [address] [phone] Bigg Peters MD [address] [place] [address] DR RADIATION ONCOLOGY [place], [place] [id number] 11/01/2023 9:00 AM EDT Office Visit Hematology/Oncology at [address] [phone] Cl Hess MD [facility] [place] [address] Yessi Renee APRN [address] [place] [address] DR HEMATOLOGY AND ONCOLOGY [place], [place] [id number] 11/01/2023 9:30 AM EDT Infusion Hematology Oncology at [address] [phone] 12/24/2023 1:00 PM EDT TH Visit (TeleHealth) Radiation Oncology at [address] [phone] Ping Moore PA [facility] DR [place] [address] documented as of this encounter Visit Diagnoses Not on filedocumented in this encounter Care Teams Hospice Executive Director Relationship Specialty Start Date End Date Alo Carey DO [address] [place] [address] [place] [phone] PCP - General Internal Medicine 08/31/20 07/03/23 documented as of this encounter
--- OUTSIDE RECORDS SUMMARY | 2023-10-06 00:42 | XMS_ITS | Encounter Summary ---
Author Organization [facility] [place] [address] Care Team Providers Care Chiropractor Sole Practitioner Name Role Phone Alo Carey Primary Care Provider [phone] Encounter Details Date Type Department Care Team (Late st Contact Info) Description 07/06/2021 Telephone [place] [phone] Floridalma Simmons Social History Tobacco Use Types Packs/Day Years [...] encounter Miscellaneous Notes * Telephone Encounter - Floridalma Simmons - 07/06/2021 2:28 PM EDT 1. ASK: TRAVEL ???Have you travelled outside of [place] ([place], [place], [place], [place], [place], [place]) in the past 14 days??? 2. ASK: EXPOSURE Have you been in contact with anyone suspected or confirmed to have COVID-19 in the past 14 days??? 3. ASK: SYMPTOMS Do you have any new or worsening symptoms on this list that are not related to another medical condition? Fever or chills ?? Cough ?? Shortness of breath or difficulty breathing ?? Fatigue ?? Muscle or body aches ?? Headache ?? Loss of taste or smell ?? Sore throat ?? Congestion or runny nose ?? Nausea or vomiting ?? Diarrhea If 'Yes' to any of the questions above Transfer patient to the Covid-19 Hotline Number ([phone]) for further instructions. If 'No' to all of the questions above Is this the first test for Covid 19 If no, please list date of previous test, result, and type of test (Molecular, Antigen, Antibody orunknown): Resides in Nursing/penitentiary or other residential setting No Employee or Household Member of Employee No Healthcare Worker No Telephone call placed/received to schedule Covid 19 testing with patient. Ordering provider: Basim Barr Testing Facility: Date of Testin/10 Time of Testin:00 see appt note Symptoms: pre-op Give directions to testing facility. All passengers in the vehicle MUST wear a mask. Leave dogs/pets at home or have them crated/behind a net. documented in this encounter Plan of Treatment Upcoming Encounters Date Type Department Care Team (Late st Contact Info) Description 10/11/2023 10:00 AM EDT Tech [place] [address] Giacomo Queen 10/11/2023 11:15 AM EDT Office [place] [phone] Basim Barr MD [facility] [place] [address] 10/18/2023 9:00 AM EDT Office Visit Hematology/Oncology at [address] [phone] Cl Hess MD [facility] [place] [place] [address] Yessi Renee APRN [address] [place] [address] DR HEMATOLOGY AND ONCOLOGY [place], [place] [address] 10/18/2023 9:30 AM EDT Infusion Hematology Oncology at [address] [phone] 10/24/2023 9:30 AM EDT Scheduled View Only Radiation Oncology at [address] [phone] Rad NurseSt Deutsch 10/24/2023 10:00 AM EDT Office Visit Radiation Oncology at [address] [phone] Bigg Peters MD [address] [place] [address] DR RADIATION ONCOLOGY [place], [place] 6[address]29 11/01/2023 9:00 AM EDT Office Visit Hematology/Oncology at [address] [phone] Cl Hess MD [facility] [place] [place] [address] HEMATOLOGY AND ONCOLOGY [place], [place] [address] 11/01/2023 9:30 AM EDT Infusion Hematology Oncology at [address] [phone] 12/24/2023 1:00 PM EDT TH Visit (TeleHealth) Radiation Oncology at [address] [phone] Ping Moore PA [facility] HEMATOLOGY [place] [address] documented as of this encounter Visit Diagnoses Not on filedocumented in this encounter Care Teams Chiropractor Sole Practitioner Relationship Specialty Start Date End Date Alo Carey DO [address] [place] [address] [place] [phone] PCP - General Internal Medicine 08/31/20 07/03/23 documented as of this encounter
--- OUTSIDE RECORDS SUMMARY | 2023-10-06 00:42 | XMS_ITS | Encounter Summary ---
Author Organization [facility] [place] [address] Care Team Providers Care Top Precipitator Operator Name Role Phone Alo Carey Primary Care Provider [phone] Encounter Details Date Type Department Care Team (Late Contact Info) Description 06/15/2021 Telephone [place] [phone] Leah Cabrera Social History Tobacco Use Types [...] AM EDT Tech [place] [phone] Giacomo Queen 10/11/2023 11:15 AM EDT Office Visit [place] [phone] Basim Barr MD [facility] [place] [address] 10/18/2023 9:00 AM EDT Office Visit Hematology/Oncology at [address] [phone] Cl Hess MD [facility] [place] [address] Yessi Renee, [address] HEMATOLOGY AND ONCOLOGY [place], [place] [phone] 10/18/2023 9:30 AM EDT Infusion Hematology Oncology at [address] [phone] 10/24/2023 9:30 AM EDT Scheduled View Only Radiation Oncology at [address] [phone] Rad , [place] 10/24/2023 10:00 AM EDT Office Visit Radiation Oncology at [address] [phone] Bigg Peters MD [address] [place] [address] DR RADIATION ONCOLOGY [place], [place] [phone] 11/01/2023 9:00 AM EDT Office Visit Hematology/Oncology at [address] [phone] Cl Hess MD [facility] [place] [address] Yessi Renee, [address] HEMATOLOGY AND ONCOLOGY [place], [place] [address] 11/01/2023 9:30 AM EDT Infusion Hematology Oncology at [address] [phone] 12/24/2023 1:00 PM EDT TH Visit (TeleHealth) Radiation Oncology at [address] [phone] Ping Moore PA [facility] DR HEMATOLOGY [place] [address] documented as of this encounter Visit Diagnoses Not on filedocumented in this encounter Care Teams Top Precipitator Operator Relationship Specialty Start Date End Date Alo Carey DO [address] [place] [address] [place] [phone] PCP - General Internal Medicine 08/31/20 07/03/23 documented as of this encounter
--- OUTSIDE RECORDS SUMMARY | 2023-10-06 00:42 | XMS_ITS | Encounter Summary ---
Author Organization [facility] [place] [address] Care Team Providers Care Fisher Trawl Line Name Role Phone Alo Carey DO Primary Care Provider [phone] Reason for Visit * Reason Comments Injections Lupron * Treatment/Therapy Plan Authorization (Routine) - Pending Review Specialty Diagnoses / Procedures Referred By Marques livingston Referred To Contact Diagnoses Malignant neoplasm of prostate Bigg Peters MD [address] [place] [address] [place] [address] Referral ID Status Reason Start Date Expiration Date V isits Requested Visits Authorized [id number] Pending Review 04/26/2021 04/26/2022 99 99 Encounter Details Date Type Department Care Team (Late st Contact Info) Description 06/28/2021 3:30 PM EDT Infusion Hematology Oncology at [address] [phone] Malignant neoplasm of prostate Social History Tobacco [...] Progress Notes * Mary Jiménez RN - 06/28/2021 3:30 PM EDT Infusion Note Diagnosis:Prostate Cancer Treatment: Lupron Injection Lupron 22.5 mg injected IM in right buttocks. Patient [...] EDT Tech [place] [phone] Giacomo Queen 10/11/2023 11:15 AM EDT Office [place] [phone] Basim Barr MD [facility] [place] [address] 10/18/2023 9:00 AM EDT Office Visit Hematology/Oncology at [address] [phone] Cl Hess MD [facility] [place] [address] Yessi Renee APRN [address] [place] [address] DR HEMATOLOGY AND ONCOLOGY [place], [place] [phone] 10/18/2023 9:30 AM EDT Infusion Hematology Oncology at [address] [phone] 10/24/2023 9:30 AM EDT Scheduled View Only Radiation Oncology at [address] [phone] St La Nena Champagne 10/24/2023 10:00 AM EDT Office Visit Radiation Oncology at [address] [phone] Bigg Peters MD [address] [place] [address] DR [place] [address] 11/01/2023 9:00 AM EDT Office Visit Hematology/Oncology at [address] [phone] Cl Hess MD [facility] [place] [address] Yessi Renee APRN [address] [place] [address] DR HEMATOLOGY AND ONCOLOGY [place], [place] [address] 11/01/2023 9:30 AM EDT Infusion Hematology Oncology at [address] [phone] 12/24/2023 1:00 PM EDT TH Visit (TeleHealth) Radiation Oncology at [address] [phone] Ping Moore PA [facility] [place] [address] documented as of this encounter Visit Diagnoses Diagnosis Malignant neoplasm of prostate documented in this encounter Administered Medications Inactive Administered Medications - up to 3 most recent administrations Medication Order MAR Action Action Date Dose Rate Site leuprolide (Lupron Depot) injection 22.5 mg 22.5 mg, Intramuscular, ONCE, 1 dose, On Sat06/28/21 at 1545, Routine, This agent is restricted to outpatient use. Is this drug being given as an outpatient? Yes Given 06/28/2021 3:52 PM EDT 22.5 mg Right Gluteal documented in this encounter Care Teams Fisher Trawl Line Relationship Specialty Start Date End Date Alo Carey DO [address] [place] [address] [place] [phone] PCP - General Internal Medicine 08/31/20 07/03/23 documented as of this encounter
--- OUTSIDE RECORDS SUMMARY | 2023-10-06 00:42 | XMS_ITS | Encounter Summary ---
[place] [address] Care Team Providers Care Fire Alarm Repairer Name Role Phone Alo Carey DO Primary Care Provider [phone] Encounter Details Date Type Department Care Team (Late st Contact Info) Description 06/02/2021 Orders Only Radiation Oncology at [address] [phone] Bigg Peters MD [address] [place] [address] [place] [address] Social History Tobacco Use Types [...] Tech [place] [phone] Giacomo Queen 10/11/2023 11:15 AM EDT Office Visit [place] [phone] [facility] [place] [address] 98 10/18/2023 9:00 AM EDT Office Visit Hematology/Oncology at [address] [phone] [facility] [place] [address] Yessi Renee [address] HEMATOLOGY AND ONCOLOGY [place], [place] [address] 10/18/2023 9:30 AM EDT Infusion Hematology Oncology at [address] [phone] 10/24/2023 9:30 AM EDT Scheduled View Only Radiation Oncology at [address] [phone] Rad Nurse, Rust 10/24/2023 10:00 AM EDT Office Visit Radiation Oncology at [address] [phone] Bigg Peters MD [address] [place] [address] DR RADIATION ONCOLOGY [place], [place] 180789 11/01/2023 9:00 AM EDT Office Visit Hematology/Oncology at [address] [phone] [facility] [place] [address] Yessi Renee [address] HEMATOLOGY AND ONCOLOGY [place], [place] [address] 11/01/2023 9:30 AM EDT Infusion Hematology Oncology at [address] [phone] 12/24/2023 1:00 PM EDT TH Visit (TeleHealth) Radiation Oncology at [address] [phone] [facility] HEMATOLOGY [place] [address] documented as of this encounter Visit Diagnoses Not on filedocumented in this encounter Care Teams Fire Alarm Repairer Relationship Specialty Start Date End Date Alo Carey DO [address] [place] [address] [place] [address] PCP - General Internal Medicine 08/31/20 07/03/23 documented as of this encounter
--- OUTSIDE RECORDS SUMMARY | 2023-10-06 00:42 | XMS_ITS | Encounter Summary ---
[place] [address] Care Team Providers Care Rubber Process Hand Name Role Phone Alo Carey Primary Care Provider [phone] Encounter Details Date Type Department Care Team (Late st Contact Info) Description 07/05/2021 8:30 AM EDT Procedure visit Radiation Oncology at [address] [phone] Bigg Peters MD [address] [place] [address] [place] [address] Malignant neoplasm of prostate Social [...] Sign Reading Time Taken Comments Blood Pressure 156/65 07/05/2021 10:31 AM EDT Pulse 63 07/05/2021 10:31 AM EDT Temperature 36.6 ??C (97.8 ??F) 07/05/2021 8:04 AM ED T Respiratory Rate 16 07/05/2021 10:31 AM EDT Oxygen Saturation 96% 07/05/2021 10:31 AM EDT Inhaled Oxygen Concentration - - Weight - - Height - - Body Mass Index - - documented in this encounter Patient Instructions * Patient Instructions* Juli Tripathi RN - 07/05/2021 10:26 AM EDT AFTER THE GOLD COIL PROCEDURE: You may resume normal activity ( no bike riding, horse back riding, snowmobiling, or ATV riding fora couple days to avoid discomfort) You may resume intercourse in 1 week You may take extra-strength or regular Tylenol for any discomfort. Start dexamethasone as directed. 1 pill twice a day for 3 days, then 1 pill once a day for 3 days. Always take this medication with food. Avoid taking too late in the evening as it may causes insomnia. It may cause temporary elevation of blood sugar for diabetic patients. Remember your PCP's instructions of increasing your Glimepiride to twice a day ( instead of once a day) while taking the dexamethasone. Contact PCP if blood sugars are still too high. You nargis resume any NSAIDs 48 hours after the procedure. Call us if you notice any unusual swelling ,difficulty with urination, pain or if you have any other concerns. Future Appointments: MRI : You will receive separate instructions specifically from the [facility] concerning your exact arrival time and what you need to do to prepare for this. Date: 07/11 around 1:00 Your planning session (simulation) will be done at : [ x ] [facility] at the Radiation Oncology Department section 2K T [Date: 07/11/21 ] [Time:arrive at 2:30 ] For proper visualization of prostate, it is required that you have a moderately full bladder. This will require you to arrive 30 minutes before scheduled appointment and drink 2 glasses of water upon arrival. There are no restrictions with eating. How to reach us: [facility] [phone] For weekends and after hours: Call [facility] ask for the information systems supervisor radiation oncologis documented in this encounter Progress Notes * Juli Tripathi RN - 07/05/2021 8:30 AM EDT Radiation Oncology Procedure Nursing Note Procedure: Prostate fiducial by Dr Bigg Peters Time of patient arrival to clinic: 0800 See flowsheet for all vital signs and medication list updated info. Pre procedure questions: [ n/a pt declined ] If Applicable: He confirms taking lorazepam 1mg po at (time): He comes to clinic accompanied by a backhaul driver. [ yes ] reviewed allergies. Allergies Allergen Reactions ??? Cyclobenzaprine Other (See Comments) Extreme moodiness ??? Other [Unclassified Drug] Other (See Comments) Had reaction to a dye used during vascular procedure at [facility] in [place]: shaking Has tolerated MRI and CT contrast. [ yes] if Applicable: He confirms holding blood thinner as directed. [ yes ] He confirms taking Levaquin( antibiotic) this morning at , Time: 0630 [ yes ] He administered fleets enema as directed; last night and this AM, with good results. [ yes ] He confirms eating breakfast or at least a small meal prior to procedure to avoid low bloodsugar. Patient states all his questions are answered and he is ready to proceed. Procedure Time out/start time: See Time out flow sheet for details. Assessment:Patient tolerated procedure well with no complaint of pain. Vitals: 07/05/21 0804 07/05/21 0959 07/05/21 1031 BP: 160/67 151/73 156/65 Patient Position: Sitting Lying Sitting Pulse: 61 63 63 Resp: 20 16 Temp: 36.6 ??C (97.8 ??F) SpO2: 97% 98% 96% See flow sheet or click on expand all in this progress note. Time procedure ended:954 After procedure,he was assisted to stretcher and transported to stretcher/emergency equipment bay for further monitoring. Time: 10:28 assisted to recliner. He denied lightheadedness. Vitals stable. Time: 10:45 dressed self with supervision Gait steady. >> See AVS for printed instructions which were reviewed with him. He has the [facility] phone number and verbalized understanding to ask for the information systems supervisor radiation oncologist if he needs to call after clinic hours. [ n/a ] If applicable: He was reminded to not drive home due to Lorazepam. Account Strategist: Sergio [place], brother (pt unable to drive due to visual impairment. Time of discharge: 11:00 vital signs stable,and gait steady. * Bigg Peters MD - 07/05/2021 8:30 AM EDT Identification: Wero Sad[place] is a 71 y.o. year old gentleman with high risk prostate cancer, who has consented for external beam radiotherapy. Procedure: Gold coil fiducial marker placement within the prostate for radiation localization during therapy. Physician: Bigg Peters MD Anesthesia: Local lidocaine with bicarbonate Description of Procedure: Wero Sad[place] was placed in the lithotomy position. A transrectal ultrasound probe was placed within the rectum and stabilized using the placement positioning system. The perineum was prepped, anesthetized with subcutaneous lidocaine, and draped with the graticule fixed in position on the ultrasound stabilizer. A needle was then placed trans-perineally into the right lobe of the prostate under ultrasound guidance with the graticule serving for stabilization and position verification. The ultrasound was used to monitor the advancement of the needle, and lidocaine was locally applied as the needle was advanced. Once it was properly positioned, a 2.0 cm length of gold coil was placed within the right lobe, and the needle was removed. This procedure was repeated within the left prostate. Following placement of both coils, the ultrasound probe and the stabilizer system were removed. The patient was then discharged. Complications: None Estimated Blood Loss: scant Disposition: Wero Sadler tolerated the treatment well. He described mild discomfort during the course of the procedure, at a level of 1/10, primarily related to placement of the rectal probe, and also with needle insertion through the perineum. He will return shortly for CT-based simulation and treatment planning, and a referral has been placed for the patient to undergo MRI of the prostate at [facility]. documented in this encounter Plan of Treatment Upcoming Encounters Date Type Department Care Team (Late st Contact Info) Description 10/11/2023 10:00 AM EDT Tech [place] [address] Giacomo Queen 10/11/2023 11:15 AM EDT Office [place] [address] Basim Barr MD [facility] [place] [address] 10/18/2023 9:00 AM EDT Office Visit Hematology/Oncology at [address] [phone] Cl Hess MD [facility] [place] [address] Yessi Renee [address] HEMATOLOGY AND ONCOLOGY [place], [place] [phone] 10/18/2023 9:30 AM EDT Infusion Hematology Oncology at [address] [phone] 10/24/2023 9:30 AM EDT Scheduled View Only Radiation Oncology at [address] [phone] Rad Nurse, [facility] 10/24/2023 10:00 AM EDT Office Visit Radiation Oncology at [address] [phone] Bigg Peters MD [address] [place] [address] DR RADIATION ONCOLOGY [place], [place] [address] 11/01/2023 9:00 AM EDT Office Visit Hematology/Oncology at [address] [phone] Cl Hess MD [facility] [place] [address] Yessi Renee [address] HEMATOLOGY AND ONCOLOGY [place], [place] [address] 11/01/2023 9:30 AM EDT Infusion Hematology Oncology at [address] [address] 12/24/2023 1:00 PM EDT TH Visit (TeleHealth) Radiation Oncology at [address] [phone] Ping Moore PA [facility] [place] [address] documented as of this encounter Visit Diagnoses Diagnosis Malignant neoplasm of prostate documented in this encounter Care Teams Rubber Process Hand Relationship Specialty Start Date End Date Alo Carey DO [address] [place] [address] [place] [phone] PCP - General Internal Medicine 08/31/20 07/03/23 documented as of this encounter
--- OUTSIDE RECORDS SUMMARY | 2023-10-06 00:42 | XMS_ITS | Encounter Summary ---
[place] [address] Care Team Providers Care Parking Cashier Name Role Phone Alo Carey DO Primary Care Provider [phone] Encounter Details Date Type Department Care Team (Late st Contact Info) Description 06/19/2021 Telephone [place] [address] Antonietta Mccray Social History Tobacco Use Types Packs/Day Years [...] encounter Miscellaneous Notes * Telephone Encounter - Antonietta Mccray - 06/19/2021 1:44 PM EDT I spoke with Mr. Sadler - we have scheduled him for Surgery with Dr. Barr to be on Saturday07/14/21. Letter sent. He knows to hold Metformin on morning of Surgery. documented in this encounter Plan of Treatment Upcoming Encounters Date Type Department Care Team (Late st Contact Info) Description 10/11/2023 10:00 AM EDT Tech [place] [address] Giacomo Queen 10/11/2023 11:15 AM EDT Office Visit [place] [address] Basim Barr MD [facility] [place] [address] 10/18/2023 9:00 AM EDT Office Visit Hematology/Oncology at [address] [phone] Cl Hess MD [facility] [place] [address] Yessi Renee [address] HEMATOLOGY AND ONCOLOGY [place], [place] [id number] 10/18/2023 9:30 AM EDT Infusion Hematology Oncology at [address] [phone] 06 10/24/2023 9:30 AM EDT Scheduled View Only Radiation Oncology at [address] [address] St La Nena Champagne 10/24/2023 10:00 AM EDT Office Visit Radiation Oncology at [address] [phone] 33 Bigg Peters MD [address] [place] [address] DR RADIATION ONCOLOGY [place], [place] [address] [phone] 11/01/2023 9:00 AM EDT Office Visit Hematology/Oncology at [address] [phone] 75 Cl Hess MD [facility] [place] [address] Yessi Renee [address] HEMATOLOGY [place] [address] 11/01/2023 9:30 AM EDT Infusion Hematology Oncology at [address] [address] 12/24/2023 1:00 PM EDT TH Visit (TeleHealth) Radiation Oncology at [address] [phone] Ping Moore PA [facility] DR [place] [address] documented as of this encounter Visit Diagnoses Not on filedocumented in this encounter Care Teams Parking Cashier Relationship Specialty Start Date End Date Alo Carey DO [address] [place] [address] [place] [address] PCP - General Internal Medicine 08/31/20 07/03/23 documented as of this encounter
--- OUTSIDE RECORDS SUMMARY | 2023-10-06 00:42 | XMS_ITS | Encounter Summary ---
Author Organization [facility] Address [facility] [place] [address] Care Team Providers Care Vegetable Ii Farmworker Name Role Phone Alo Carey Primary Care Provider [phone] Reason for Visit * Reason Onset Date Comments Pre Procedure Call 06/05/2021 Encounter Details Date Type Department Care Team (Late st Contact Info) Description 06/05/2021 Telephone [place] [address] Ismael Wu MD [facility] [place] [address] Pre Procedure Call Social History Tobacco Use [...] encounter Miscellaneous Notes * Telephone Encounter - Yin Saini - 06/05/2021 9:25 AM EDT Who is calling: Yung What is the question: Patient is calling today as he has questions about his Rt hip replacement. Hesates he's been canceled 8 times and would like to know the status of being able to schedule the surgery. Best number to reach the caller: [phone] Barr in vascular on May 23. The plan and finalization of the note from that visit isstill pending. I sent a message to Dr. Barr to provide further input on whether patient needs further management from a vascular standpoint or if we could proceed with scheduling his JIMI. I informed Dr. Barr that patient is on DAPT and his Plavix would be held for 5 days before surgery and resumed on POD#1 while his aspirin would be continued through his surgery. I called patient to update him but the call could not go through despite three attempts. documented in this encounter Plan of Treatment Upcoming Encounters Date Type Department Care Team (Late st Contact Info) Description 10/11/2023 10:00 AM EDT Tech [place] [address] Giacomo Queen 10/11/2023 11:15 AM EDT Office [place] [address] Basim Barr MD [facility] [place] [address] 10/18/2023 9:00 AM EDT Office Visit Hematology/Oncology at [address] [phone] Cl Hess MD [facility] [place] [address] Yessi Renee, ARNOLD [address] [place] [address] DR HEMATOLOGY AND ONCOLOGY [place], [place] [id number] 10/18/2023 9:30 AM EDT Infusion Hematology Oncology at [address] [phone] 10/24/2023 9:30 AM EDT Scheduled View Only Radiation Oncology at [address] [phone] Rad Nurse, [place] 10/24/2023 10:00 AM EDT Office Visit Radiation Oncology at [address] [phone] Bigg Peters MD [address] [place] [address] DR RADIATION ONCOLOGY [place], [place] [id number] 11/01/2023 9:00 AM EDT Office Visit Hematology/Oncology at [address] [phone] Cl Hess MD [facility] [place] [address] Yessi Renee APRN [address] [place] [address] DR HEMATOLOGY AND ONCOLOGY [place], [place] [id number] 11/01/2023 9:30 AM EDT Infusion Hematology Oncology at [address] [phone] 12/24/2023 1:00 PM EDT TH Visit (TeleHealth) Radiation Oncology at [address] [phone] Ping Moore PA [facility] DR [place] [address] documented as of this encounter Visit Diagnoses Not on filedocumented in this encounter Care Teams Vegetable Ii Farmworker Relationship Specialty Start Date End Date Alo Carey DO [address] [place] [address] [place] [address] PCP - General Internal Medicine 08/31/20 07/03/23 documented as of this encounter
--- OUTSIDE RECORDS SUMMARY | 2023-10-06 00:42 | XMS_ITS | Encounter Summary ---
Author Organization [facility] [place] [address] Care Team Providers Care Buyer Name Role Phone Alo Carey DO Primary Care Provider [phone] Encounter Details Date Type Department Care Team (Late st Contact Info) Description 07/11/2021 Telephone [place] [phone] Marva Moura, RN Social History Tobacco Use Types Packs/Day [...] Miscellaneous Notes * Telephone Encounter - Marva Moura RN - 07/11/2021 4:43 PM EDT Images from the original note were not included. This bond writer accessed voice message from patient at 3:59 who states he's at the [employer] tent for his pre-op test and there is no one there. He drove down from [place], [place]. Chart indicates arrangements for testing was approved. This bond writer called the Covid test line and was told the tent closes at 2:30, and that email is the best way to reach Rose Mary Veras. email message sent to Rose Mary Veras, and Dr. Barr. This bond writer phoned patient who states he is already driving back home. Patient states this has happened before and he's been able to get the test done at [facility] in [place]. email message sent to Dr. Barr and Rose Mary Veras. documented in this encounter Plan of Treatment Upcoming Encounters Date Type Department Care Team (Late st Contact Info) Description 10/11/2023 10:00 AM EDT Tech Visit [place] [address] Giacomo Queen 10/11/2023 11:15 AM EDT Office [place] [phone] Basim Barr MD [facility] [place] [address] 10/18/2023 9:00 AM EDT Office Visit Hematology/Oncology at [address] [phone] Cl Hess MD [facility] [place] [address] Yessi Renee APRN [address] [place] [address] DR HEMATOLOGY AND ONCOLOGY [place], [place] [id number] 10/18/2023 9:30 AM EDT Infusion Hematology Oncology at [address] [phone] 10/24/2023 9:30 AM EDT Scheduled View Only Radiation Oncology at [address] [phone] St La Nena Champagne 10/24/2023 10:00 AM EDT Office Visit Radiation Oncology at [address] [phone] Bigg Peters MD [address] [place] [address] DR RADIATION ONCOLOGY [place], [place] [address] 11/01/2023 9:00 AM EDT Office Visit Hematology/Oncology at [address] [phone] Cl Hess MD [facility] [place] [address] Yessi Renee APRN [address] [place] [address] DR HEMATOLOGY AND ONCOLOGY [place], [place] [address] 11/01/2023 9:30 AM EDT Infusion Hematology Oncology at [address] [phone] 12/24/2023 1:00 PM EDT TH Visit (TeleHealth) Radiation Oncology at [address] [phone] Ping Moore PA [facility] DR [place] [address] documented as of this encounter Visit Diagnoses Not on filedocumented in this encounter Care Teams Buyer Relationship Specialty Start Date End Date Alo Carey DO [address] [place] [address] [place] [address] PCP - General Internal Medicine 08/31/20 07/03/23 documented as of this encounter
--- OUTSIDE RECORDS SUMMARY | 2023-10-06 00:42 | XMS_ITS | Encounter Summary ---
[place] [address] Care Team Providers Care Partner Integration Planner Name Role Phone CherryAlo Lon RUTHERFORD Primary Care Provider [phone] Reason for Visit * Auth/Cert Specialty Diagnoses [...] Expiration Date Visits Re quested Visits Authorized [id number] 1 1 Encounter Details Date Type Department Care Team (Latest Contact Info) Description 07/11/2021 1:00 PM EDT Public Health [place] [address] Encounter for preprocedure screening laboratory testing for COVID-19 Social History Tobacco Use Types Packs/Day Years [...] Tech [place] [address] Giacomo Queen 10/11/2023 11:15 AM EDT Office [place] [address] Basim Barr MD [facility] [place] [address] 10/18/2023 9:00 AM EDT Office Visit Hematology/Oncology at [address] [phone] Cl Hess MD [facility] [place] [address] Yessi Renee APRN [address] [place] [address] DR HEMATOLOGY AND ONCOLOGY [place], [place] [id number] 10/18/2023 9:30 AM EDT Infusion Hematology Oncology at [address] [phone] 10/24/2023 9:30 AM EDT Scheduled View Only Radiation Oncology at [address] [phone] St La Nena Champagne 10/24/2023 10:00 AM EDT Office Visit Radiation Oncology at [address] [phone] 84 Bigg Peters MD [address] [place] [address] DR RADIATION ONCOLOGY [place], [place] [id number] 11/01/2023 9:00 AM EDT Office Visit Hematology/Oncology at [address] [phone] Cl Hess MD [facility] [place] [address] Yessi Renee APRN [address] [place] [address] DR HEMATOLOGY AND ONCOLOGY [place], [place] [address] 11/01/2023 9:30 AM EDT Infusion Hematology Oncology at [address] [phone] 12/24/2023 1:00 PM EDT TH Visit (TeleHealth) Radiation Oncology at [address] [phone] Ping Moore PA [facility] DR HEMATOLOGY [place] [address] documented as of this encounter Visit Diagnoses Diagnosis Encounter for preprocedure screening laboratory testing for COVID-19 documented in this encounter Care Teams Partner Integration Planner Relationship Specialty Start Date End Date Alo Carey DO [address] [place] [address] [place] [address] PCP - General Internal Medicine 08/31/20 07/03/23 documented as of this encounter
--- OUTSIDE RECORDS SUMMARY | 2023-10-06 00:42 | XMS_ITS | Encounter Summary ---
Author Organization [facility] [place] [address] Care Team Providers Care Office Automation Technician Name Role Phone Alo Carey DO Primary Care Provider [phone] Reason for Visit * Reason Onset Date Comments Pre Procedure Call 06/22/2021 Encounter Details Date Type Department Care Team (Late st Contact Info) Description 06/22/2021 Telephone [place] [address] Ismael Wu MD [facility] [place] [address] Pre Procedure Call Social History Tobacco Use [...] encounter Miscellaneous Notes * Telephone Encounter - Dunne Floridalma Kvng - 06/22/2021 10:29 AM EDT Who is calling? Wero Best call back number: [phone] Best time to call back between 8:00 am & 5:00 pm: any time Can we leave a message? yes When is your procedure? Not yet scheduled - orders are in chart Who is your surgeon? Dr. Ismael Wu What procedure are you having? Right Total Hip Arthoplasty What is the question you would like to ask the clinical care team? Patient calls to get surgery scheduled. He has all of his vascular appointments scheduled in July (please see patient's appointment desk) and he was hoping he could be scheduled soon after all of these or even coordinated on July 25wh he's here for another procedure. Please contact patient - they cannot take direct # for OR schedulers because patient is blind. documented in this encounter Plan of Treatment Upcoming Encounters Date Type Department Care Team (Late st Contact Info) Description 10/11/2023 10:00 AM EDT Tech [place] [address] Giacomo Queen 10/11/2023 11:15 AM EDT Office [place] [address] Basim Barr MD [facility] [place] [address] 10/18/2023 9:00 AM EDT Office Visit Hematology/Oncology at [address] [phone] Cl Hess MD [facility] [place] [place] [address] Yessi Renee APRN [address] [place] [address] DR HEMATOLOGY AND ONCOLOGY [place], [place] [id number] 10/18/2023 9:30 AM EDT Infusion Hematology Oncology at [address] [phone] 10/24/2023 9:30 AM EDT Scheduled View Only Radiation Oncology at [address] [phone] St La Nena Champagne 10/24/2023 10:00 AM EDT Office Visit Radiation Oncology at [address] [phone] Bigg Peters MD [address] [place] [address] DR RADIATION ONCOLOGY [place], [place] [address] 11/01/2023 9:00 AM EDT Office Visit Hematology/Oncology at [address] [phone] Cl Hess MD [facility] [place] [place] [address] Yessi Renee APRN [address] [place] [address] DR HEMATOLOGY AND ONCOLOGY [place], [place] [address] 11/01/2023 9:30 AM EDT Infusion Hematology Oncology at [address] [phone] 12/24/2023 1:00 PM EDT TH Visit (TeleHealth) Radiation Oncology at [address] [phone] Ping Moore PA [facility] DR [place] [address] documented as of this encounter Visit Diagnoses Not on filedocumented in this encounter Care Teams Office Automation Technician Relationship Specialty Start Date End Date Alo Carey DO [address] [place] [address] [place] [address] PCP - General Internal Medicine 08/31/20 07/03/23 documented as of this encounter
--- OUTSIDE RECORDS SUMMARY | 2023-10-06 00:42 | XMS_ITS | Encounter Summary ---
Author Organization [facility] [place] [address] Care Team Providers Care Telemetry Tech Name Role Phone Alo Carey DO Primary Care Provider [phone] Encounter Details Date Type Department Care Team (Late st Contact Info) Description 05/05/2021 Notes [place] [address] Olena Perez Social History Tobacco Use Types [...] encounter Progress Notes * Olena Perez - 05/05/2021 12:44 PM EST Study Title: Comparative Effectiveness of Pulmonary Embolism Prevention after hip and knee Replacement: Balancing Safety and Effectiveness. Principle English Language Learner Tutor: Dr. Phan Mohr #: [id number] Subject #: [id number] Subject has been randomized to arm C for the above named clinical trial. Arm C (Rivaroxaban) orders to be placed while in-patient. Patient must use [facility] [place] pharmacy to get $75 cap borrero. Note submitted by Olena Perez, Clinical Research Coordinator. documented in this encounter Plan of Treatment Upcoming Encounters Date Type Department Care Team (Late st Contact Info) Description 10/11/2023 10:00 AM EDT Tech Visit [place] [phone] Giacomo Queen 10/11/2023 11:15 AM EDT Office Visit [place] [address] Basim Barr MD [facility] [place] [address] 10/18/2023 9:00 AM EDT Office Visit Hematology/Oncology at [address] [phone] Cl Hess MD [facility] [place] [address] Yessi Renee APRN [address] [place] [address] DR HEMATOLOGY AND ONCOLOGY [place], [place] [id number] 10/18/2023 9:30 AM EDT Infusion Hematology Oncology at [address] [phone] 10/24/2023 9:30 AM EDT Scheduled View Only Radiation Oncology at [address] [phone] St La Nena Champagne 10/24/2023 10:00 AM EDT Office Visit Radiation Oncology at [address] [phone] Bigg Peters MD [address] [place] [address] DR RADIATION ONCOLOGY [place], [place] [id number] 11/01/2023 9:00 AM EDT Office Visit Hematology/Oncology at [address] [phone] Cl Hess MD [facility] [place] [address] Yessi Renee APRN [address] [place] [address] DR HEMATOLOGY AND ONCOLOGY [place], [place] [id number] 11/01/2023 9:30 AM EDT Infusion Hematology Oncology at [address] [phone] 12/24/2023 1:00 PM EDT TH Visit (TeleHealth) Radiation Oncology at [address] [phone] Ping Moore PA [facility] DR [place] [address] documented as of this encounter Visit Diagnoses Not on filedocumented in this encounter Care Teams Telemetry Tech Relationship Specialty Start Date End Date Alo Carey DO [address] [place] [address] [place] [address] PCP - General Internal Medicine 08/31/20 07/03/23 documented as of this encounter
--- OUTSIDE RECORDS SUMMARY | 2023-10-06 00:42 | XMS_ITS | Encounter Summary ---
Author Organization [facility] [place] [address] Care Team Providers Care Dental Mold Maker Name Role Phone Alo Carey Primary Care Provider [phone] Encounter Details Date Type Department Care Team (Late st Contact Info) Description 05/04/2021 Telephone [place] [phone] Floridalma Simmons Social History Tobacco Use Types [...] * Telephone Encounter - Floridalma Simmons - 05/04/2021 8:44 AM EST Is this the first test for Covid 19 If no, please list date of previous test, result, and type of test (Molecular, Antigen, Antibody orunknown): Resides in [facility], shelter or other residential facility No Employee or Household Member of Employee No Healthcare Worker No Telephone call placed/received to schedule Covid 19 testing with patient. Ordering provider: Ismael Wu Testing Facility: [facility] Facility Date of Testin/21 Time of Testing:TBD Symptoms: Pre Op Please send order to listed facility. documented in this encounter Plan of Treatment Upcoming Encounters Date Type Department Care Team (Late st Contact Info) Description 10/11/2023 10:00 AM EDT Tech [place] [address] Giacomo Queen 10/11/2023 11:15 AM EDT Office [place] [address] Basim Barr MD [facility] [place] [address] 10/18/2023 9:00 AM EDT Office Visit Hematology/Oncology at [address] [phone] Cl Hess MD [facility] [place] [address] Yessi Renee APRN [address] [place] [address] DR HEMATOLOGY AND ONCOLOGY [place], [place] [id number] 10/18/2023 9:30 AM EDT Infusion Hematology Oncology at [address] [phone] 10/24/2023 9:30 AM EDT Scheduled View Only Radiation Oncology at [address] [phone] St La Nena Champagne 10/24/2023 10:00 AM EDT Office Visit Radiation Oncology at [address] [phone] Bigg Peters MD [address] [place] [address] DR RADIATION ONCOLOGY [place], [place] [address]1669 11/01/2023 9:00 AM EDT Office Visit Hematology/Oncology at [address] [phone] Cl Hess MD [facility] [place] [address] Yessi Renee APRN [address] [place] [address] DR HEMATOLOGY AND ONCOLOGY [place], [place] 459859 11/01/2023 9:30 AM EDT Infusion Hematology Oncology at [address] [phone] 12/24/2023 1:00 PM EDT TH Visit (TeleHealth) Radiation Oncology at [address] [phone] Ping Moore PA [facility] DR HEMATOLOGY [place] [address] documented as of this encounter Visit Diagnoses Diagnosis Encounter for screening laboratory testing for COVID-19 virus documented in this encounter Care Teams Dental Mold Maker Relationship Specialty Start Date End Date Alo Carey DO [address] [place] [address] [place] [address] PCP - General Internal Medicine 08/31/20 07/03/23 documented as of this encounter
--- OUTSIDE RECORDS SUMMARY | 2023-10-06 00:42 | XMS_ITS | Encounter Summary ---
Author Organization [facility] [place] [address] Care Team Providers Care Demurrage Worker Name Role Phone Alo Carey DO Primary Care Provider [phone] Encounter Details Date Type Department Care Team (Late st Contact Info) Description 06/20/2021 Orders Only Radiation Oncology at [address] [phone] Bigg Peters MD [address] [place] [address] [place] [address] Malignant neoplasm of prostate Social [...] AM EDT Tech [place] [phone] Giacomo Queen 10/11/2023 11:15 AM EDT Office Visit [place] [phone] Basim Barr MD [facility] [place] [address] 10/18/2023 9:00 AM EDT Office Visit Hematology/Oncology at [address] [phone] Cl Hess MD [facility] [place] [address] Yessi Renee [address] HEMATOLOGY AND ONCOLOGY [place], [place] [address] [phone] 10/18/2023 9:30 AM EDT Infusion Hematology Oncology at [address] [address] 10/24/2023 9:30 AM EDT Scheduled View Only Radiation Oncology at [address] [phone] Rad Nurse, [place] 10/24/2023 10:00 AM EDT Office Visit Radiation Oncology at [address] [phone] 84 Bigg Peters MD [address] [place] [address] DR RADIATION ONCOLOGY [place], [place] [address]91 [phone] 11/01/2023 9:00 AM EDT Office Visit Hematology/Oncology at [address] [phone] Cl Hess MD [facility] [place] [address] Yessi Renee [address] HEMATOLOGY AND ONCOLOGY [place], [place] [address] [phone] 11/01/2023 9:30 AM EDT Infusion Hematology Oncology at [address] [address] 12/24/2023 1:00 PM EDT TH Visit (TeleHealth) Radiation Oncology at [address] [address] Ping Moore PA [facility] DR [place] [address] documented as of this encounter Visit Diagnoses Diagnosis Malignant neoplasm of prostate documented in this encounter Care Teams Demurrage Worker Relationship Specialty Start Date End Date Alo Carey DO [address] [place] [address] [place] [address] PCP - General Internal Medicine 08/31/20 07/03/23 documented as of this encounter
--- OUTSIDE RECORDS SUMMARY | 2023-10-06 00:42 | XMS_ITS | Encounter Summary ---
Author Organization Formerly [facility] [place] [address] Care Team Providers Care Band Director Name Role Phone Alo Carey DO Primary Care Provider [phone] Encounter Details Date Type Department Care Team (Late st Contact Info) Description 07/03/2021 Telephone Radiation Oncology at [address] [phone] Nicole Bhatt RN Social History Tobacco Use Types Packs/Day [...] encounter Miscellaneous Notes * Telephone Encounter - Nicole Bhatt RN - 07/03/2021 5:49 PM EDT Left message on voice mail regarding intent of call to follow up regarding previous call by my colleague Juli Tripathi on 06/30. Please refer to that note. I reiterated patient's concerns and dosing of levaquin/dexamethasone prescribed. Provided call back information and request for call back with response regarding Dr. Carey's thoughts on patient blood glucose management following gold coil procedure. documented in this encounter Plan of Treatment Upcoming Encounters Date Type Department Care Team (Late st Contact Info) Description 10/11/2023 10:00 AM EDT Tech [place] [phone] Giacomo Queen 10/11/2023 11:15 AM EDT Office Visit [place] [phone] Basim Barr MD [facility] [place] [address] 10/18/2023 9:00 AM EDT Office Visit Hematology/Oncology at [address] [phone] Cl Hess MD [facility] [place] [address] Yessi Renee APRN [address] [place] [address] DR HEMATOLOGY AND ONCOLOGY [place], [place] [id number] 10/18/2023 9:30 AM EDT Infusion Hematology Oncology at [address] [phone] 10/24/2023 9:30 AM EDT Scheduled View Only Radiation Oncology at [address] [phone] [facility] 10/24/2023 10:00 AM EDT Office Visit Radiation Oncology at [address] [phone] Bigg Peters MD [address] [place] [address] DR RADIATION ONCOLOGY [place], [place] [id number] 11/01/2023 9:00 AM EDT Office Visit Hematology/Oncology at [address] [phone] Cl Hess MD [facility] [place] [address] Yessi Renee APRN [address] [place] [address] DR HEMATOLOGY AND ONCOLOGY [place], [place] [id number] 11/01/2023 9:30 AM EDT Infusion Hematology Oncology at [address] [phone] 12/24/2023 1:00 PM EDT TH Visit (TeleHealth) Radiation Oncology at [address] [phone] Ping Moore PA [facility] DR HEMATOLOGY [place] [address] documented as of this encounter Visit Diagnoses Not on filedocumented in this encounter Care Teams Band Director Relationship Specialty Start Date End Date Alo Carey DO [address] [place] [address] [place] [address] PCP - General Internal Medicine 08/31/20 07/03/23 documented as of this encounter
--- OUTSIDE RECORDS SUMMARY | 2023-10-06 00:42 | XMS_ITS | Encounter Summary ---
[place] [address] Care Team Providers Care Teacher Of The Emotionally Disturbed Name Role Phone Alo Carey DO Primary Care Provider [phone] Encounter Details Date Type Department Care Team (Late st Contact Info) Description 06/30/2021 Telephone Radiation Oncology at [address] [phone] Juli Tripathi RN Social History [...] Telephone Encounter - Juli Tripathi RN - 06/30/2021 6:23 PM EDT Radiation Oncology Nurse Telephone Note [facility]- [place], [place] Saturday06/30/21 11:[address] Carey's office Message left on their answer machine asking for return call regarding this patient's diabetes management. Background information : Patient stated that when he picked up his antibiotic ( levaquin) the pharmacist stated there was a concern that there is a interaction with his metformin and possible hypoglycemia. He is also concerned about the dexamethasone that he will take after the procedure, scheduled on 07/05 ,causing hyperglycemia. He wonders if he should take more metformin during this period of time. He asked that I call PCP to clarify plan with these meds. No return call from the PCP today. Plan: Nursing will attempt contact early next week documented in this encounter Plan of Treatment Upcoming Encounters Date Type Department Care Team (Late st Contact Info) Description 10/11/2023 10:00 AM EDT Tech [place] [address] Giacomo Queen 10/11/2023 11:15 AM EDT Office [place] [phone] Basim Barr MD [facility] [place] [address] 10/18/2023 9:00 AM EDT Office Visit Hematology/Oncology at [address] [phone] Cl Hess MD [facility] [place] [place] [address] Yessi Renee APRN [address] [place] [address] DR HEMATOLOGY AND ONCOLOGY [place], [place] [id number] 10/18/2023 9:30 AM EDT Infusion Hematology Oncology at [address] [phone] 10/24/2023 9:30 AM EDT Scheduled View Only Radiation Oncology at [address] [phone] [facility] 10/24/2023 10:00 AM EDT Office Visit Radiation Oncology at [address] [phone] Bigg Peters MD [address] [place] [address] DR RADIATION ONCOLOGY [place], [place] [id number] 11/01/2023 9:00 AM EDT Office Visit Hematology/Oncology at [address] [phone] Cl Hess MD [facility] [place] [address] Yessi Renee APRN [address] [place] [address] DR HEMATOLOGY AND ONCOLOGY [place], [place] [address] 11/01/2023 9:30 AM EDT Infusion Hematology Oncology at [address] [phone] 12/24/2023 1:00 PM EDT TH Visit (TeleHealth) Radiation Oncology at [address] [phone] Ping Moore PA [facility] DR [place] [address] documented as of this encounter Visit Diagnoses Not on filedocumented in this encounter Care Teams Teacher Of The Emotionally Disturbed Relationship Specialty Start Date End Date Alo Carey DO [address] [place] [address] [place] [phone] PCP - General Internal Medicine 08/31/20 07/03/23 documented as of this encounter
--- OUTSIDE RECORDS SUMMARY | 2023-10-06 00:42 | XMS_ITS | Encounter Summary ---
[place] [address] Care Team Providers Care Business Office Manager Name Role Phone Alo Carey DO Primary Care Provider [phone] Encounter Details Date Type Department Care Team (Late st Contact Info) Description 06/28/2021 Telephone Radiation Oncology at [address] [phone] Juli Tripathi RN Social History [...] Telephone Encounter - Juli Tripathi RN - 06/28/2021 4:24 PM EDT Radiation Oncology Nurse Telephone Note [facility]- [place], [place] Telephone call to PCP, Dr Carey's office for recommendation of Plavix management with upcoming prostate fiducial implant procure appointment 07/05 and our usual recommendation of stopping anticoagulants 1 week prior. The clinic is closed, however I left a detailed message of above information asking for return callwith my name and contact information and asking for Dr Carey's guidance in this matter. 06/29/21 Katy called back and stated that Dr Lagoy authorized that he hold Plavix 48 hr prior to procedure and resume 48hr after procedure. 5:20 PM I called pt back with this Information . Patient verbalized understanding of these instructions. He stated that when he picked up his antibiotic ( levaquin) the pharmacist stated there was a concern that there is a interaction with his metformin and possible hypoglycemia. He is also concerned about the dexamethasone causing hyperglycemia. He asked that I call PCP tomorrow AM to clarify plan with these meds. Plan: nursing will call PCP tomorrow to review this above information management. documented in this encounter Plan of Treatment Upcoming Encounters Date Type Department Care Team (Late st Contact Info) Description 10/11/2023 10:00 AM EDT Tech [place] [address] Giacomo Queen 10/11/2023 11:15 AM EDT Office Visit [place] [address] Basim Barr MD [facility] [place] [address] 10/18/2023 9:00 AM EDT Office Visit Hematology/Oncology at [address] [phone] Cl Hess MD [facility] [place] [address] Yessi Renee APRN [address] [place] [address] DR HEMATOLOGY AND ONCOLOGY [place], [place] [address] 10/18/2023 9:30 AM EDT Infusion Hematology Oncology at [address] [phone] 10/24/2023 9:30 AM EDT Scheduled View Only Radiation Oncology at [address] [phone] Rad Nurse, [place] 10/24/2023 10:00 AM EDT Office Visit Radiation Oncology at [address] [phone] Bigg Peters MD [address] [place] [address] DR RADIATION ONCOLOGY [place], [place] [id number] 11/01/2023 9:00 AM EDT Office Visit Hematology/Oncology at [address] [phone] Cl Hess MD [facility] [place] [address] Yessi Renee APRN [address] [place] [address] DR HEMATOLOGY AND ONCOLOGY [place], [place] [id number] 11/01/2023 9:30 AM EDT Infusion Hematology Oncology at [address] [phone] 12/24/2023 1:00 PM EDT TH Visit (TeleHealth) Radiation Oncology at [address] [phone] Ping Moore PA [facility] DR [place] [address] documented as of this encounter Visit Diagnoses Not on filedocumented in this encounter Care Teams Business Office Manager Relationship Specialty Start Date End Date Alo Carey DO [address] [place] [address] [place] [phone] PCP - General Internal Medicine 08/31/20 07/03/23 documented as of this encounter
--- OUTSIDE RECORDS SUMMARY | 2023-10-06 00:42 | XMS_ITS | Encounter Summary ---
[place] [address] Care Team Providers Care Cadd Technician Name Role Phone Alo Carey Primary Care Provider [phone] Encounter Details Date Type Department Care Team (Late st Contact Info) Description 07/04/2021 Telephone Radiation Oncology at [address] [phone] Juli Tripathi RN Social History [...] Telephone Encounter - Juli Tripathi RN - 07/04/2021 4:19 PM EDT Radiation Oncology Nurse Telephone Note [facility]- [place], [place] Telephone call to patient. PCP's office attempted to call me earlier and did not leave message.It is now 4:15PM and their office is closed for the day. Patient states that he was instructed by PCP to double up on the glimepiride on the 6 days that he is on the dexamethasone. He states he has no questions about this Or any of the other instructions for his gold coils and will see us tomorrow. 07/05/21 10:19 Amendment: Call to PCP's office . Spoke to office nurse, Katy who confirmed the above plan of doubling glimepiride on the 6 days that he is on the dexamethasone. She further explained that his vision is not adequate for insulin use. documented in this encounter Plan of Treatment Upcoming Encounters Date Type Department Care Team (Late st Contact Info) Description 10/11/2023 10:00 AM EDT Tech [place] [phone] Giacomo Queen 10/11/2023 11:15 AM EDT Office Visit [place] [phone] Basim Barr MD [facility] [place] [address] 10/18/2023 9:00 AM EDT Office Visit Hematology/Oncology at [address] [phone] Cl Hess MD [facility] [place] [address] Yessi Renee APRN [address] [place] [address] DR HEMATOLOGY AND ONCOLOGY [place], [place] [phone] 10/18/2023 9:30 AM EDT Infusion Hematology Oncology at [address] [phone] 10/24/2023 9:30 AM EDT Scheduled View Only Radiation Oncology at [address] [phone] [facility] 10/24/2023 10:00 AM EDT Office Visit Radiation Oncology at [address] [phone] Bigg Peters MD [address] [place] [address] DR RADIATION ONCOLOGY [place], [place] [address] 11/01/2023 9:00 AM EDT Office Visit Hematology/Oncology at [address] [phone] Cl Hess MD [facility] [place] [address] Yessi Renee APRN [address] [place] [address] DR HEMATOLOGY AND ONCOLOGY [place], [place] [phone] 11/01/2023 9:30 AM EDT Infusion Hematology Oncology at [address] [phone] 12/24/2023 1:00 PM EDT TH Visit (TeleHealth) Radiation Oncology at [address] [phone] Ping Moore PA [facility] DR [place] [address] documented as of this encounter Visit Diagnoses Not on filedocumented in this encounter Care Teams Cadd Technician Relationship Specialty Start Date End Date Alo Carey DO [address] [place] [address] [place] [phone] PCP - General Internal Medicine 08/31/20 07/03/23 documented as of this encounter
--- OUTSIDE RECORDS SUMMARY | 2023-10-06 00:43 | XMS_ITS | Encounter Summary ---
Author Organization [facility] Address [facility] [place] [address] Care Team Providers Care Sow Farm Barn Technician Name Role Phone Alo Carey Primary Care Provider [phone] Encounter Details Date Type Department Care Team (Late st Contact Info) Description 02/02/2021 8:30 AM EST - 02/02/2021 9:45 AM EST Surgery Main OR at [address] [id number] Cayetano Engle MD [facility] [place] [address] CYSTO, LASER TURP (WRVU 12.15) Social History Tobacco Use Types Packs/Day Years Used Date Smoking Tobacco: Former Cigarettes 963 - 1992 Smokeless Tobacco: Never Alcohol Use Standard Drinks/Week Comments Yes 5 (1 standard drink = 0.6 oz pur e alcohol) Sex and Gender Information Value Date Recorded Sex Assigned at Not on file Gender Identity Not on file Sexual Orientation Not on file documented as of this encounter Last Filed Vital Signs Vital Sign Reading Time Taken Comments Blood Pressure 157/90 02/02/2021 8:00 AM EST Pulse 71 02/02/2021 8:00 AM EST Temperature 36.5 ??C (97.7 ??F) 02/02/2021 8:00 AM ES T Respiratory Rate 22 02/02/2021 8:00 AM EST Oxygen Saturation 95% 02/02/2021 8:00 AM EST Inhaled Oxygen Concentration - - Weight 112.2 kg (247 lb 6.4 oz) 02/02/2021 8:00 AM EST Height 180.3 cm (5' 10.98) 02/02/2021 8:[address] Body Mass Index 34.52 02/02/2021 8:00 AM EST documented in this encounter Discharge Summaries * Cayetano Engle MD - 02/02/2021 5:51 PM EST Discharge Summary Patient Name: Wero Sadler Patient Age: 71 y.o. Language: Upper Sorbian Race: White Ethnicity: Not nor Admit date: 02/02/2021 Discharge date: 02/03/2021 Attending Physician: Cayetano Engle MD Discharge Physician: Same as above Discharge Diagnoses (Hospital Problems) and Secondary Diagnoses (Chronic Problems): Active Hospital Problems Diagnosis ??? BPH (benign prostatic hyperplasia) Resolved Hospital Problems No resolved problems to display. Active Non-Hospital Problems Diagnosis ??? Obstructive sleep apnea syndrome ??? Malignant neoplasm of prostate ??? Benign prostatic hyperplasia ??? Postoperative urinary retention ??? Primary osteoarthritis of left hip ??? s/p L JIMI, posterior, Dr. Wu, 10/10/20 ??? ASCVD (arteriosclerotic cardiovascular disease) ??? Colorectal cancer ??? Diabetes mellitus ??? Hypercholesterolemia ??? Hypertensive disorder Operations/Major Procedures: Procedure(s): CYSTO, LASER TURP (WRVU 12.15) MODIFIER,GREENLIGHT LASER 02/02/2021 History of Presentation: Wero Sadler is a 71 y.o. male with history of DM2, CAD s/p CABG (2018), CVA (on ASA/plavix), carotid dz (s/p CEA 08/2020), OLGA, prostate cancer (starting XRT and ADT), presenting for planned PVP. Norecent changes to health status. ?? Patient had urinary retention after a??left hip replacement??in 10/2020. He had a catheter for a week and was started on flomax. He passed void trial with PVR 107mL. He tried stopping flomax but PVR elevated to 400mL. It came back to 180 when he restarted. ?? UCx showed citrobacter??(boo-sensitive)??and he was treated with a course for presumed prostatitis to avoid seeding his new joint. ?? Currently takes??flomax 0.8mg Drinks 4-5 cups coffee in AM. Otherwise gatorade, sprite, or beer. Occasionally drinks water. IPSS??6??(0/2/1/2/1/0/0); QoL??3 Prostate size:??50g?? Last PSA:??21.6 (steadily aleksandr from 11 to 15 to 18). Hospital Course: Patient was admitted electively to [facility] via the same day surgery program and underwent the above procedure. He tolerated surgery well and was tranferred from the PACU to the general floor in good condition a few hours after surgery. Patient's hospital course was uncomplicated. He remained afebrile, with stable vital signs throughout his hospital stay. Today, on POD# 1 he has met all criteria for discharge home: his pain is well controlled with medications by mouth, he is tolerating a regular diet, is voiding spontaneously without difficulties, and is up and ambulating without complications. Hehas been deemed safe for discharge. Vital Signs at Discharge: Weight: Wt Readings from Last 1 Encounters: 02/02/21 112.2 kg (247 lb 6.4 oz) Height: Ht Readings from Last 1 Encounters: 02/02/21 180.3 cm (5' 10.98) BMI: Body mass index is 34.52 kg/m??. Last value Range last 24 hrs Temperature Temp: 36.2 ??C (97.2 ??F) Temp: [36.2 ??C (97.2 ??F)-36.9 ??C (98.4 ??F)] Heart Rate Heart Rate: 68 Heart Rate: [60-80] Blood Pressure BP: 144/77 BP: (124-160)/(64-77) Respiratory Rate Resp: 18 Resp: [16-18] SpO2 SpO2: 94 % SpO2: [91 %-94 %] Exam at Discharge: General: NAD CV: RRR Pulm: Non labored on room air Abd: SNTND Ext: WWP Functional and Cognitive Status: Ambulating and cognitively intact. Important Studies and Lab Data: Labs:Last wbc, hgb, hct plt No results for input(s): WBC, HGB, HCT in the last 72 hours. Invalid input(s): PLT Studies: None Pending Studies and Lab Data: No current labs Discharge Conditions/Prognosis: Good Discharge to: Home Updated Allergies/ADRs: Allergies Allergen Reactions ??? Other [Unclassified Drug] Other (See Comments) Had reaction to a dye used during vascular procedure at [facility] in [place]: shaking Has tolerated MRI and CT contrast. Immunizations Given this Hospitalization: Immunization History Administered Date(s) Administered ??? Influenza PF, Split (High Dose) 11/21/2020 ??? Moderna Covid-19 Vaccine 05/20/2020, 06/21/2020, 01/01/2021 ??? Td, adult 12/02/2018 Discharge Medications: Your Medications Continued medications, unchanged Dose Details amLODIPine 10 mg Tab Commonly known as: Norvasc Take 10 mg by mouth daily. 10 mg Refills: 0 aspirin EC 81 mg Tbec Take 81 mg by mouth daily. 81 mg Refills: 0 atorvastatin 40 mg Tab Commonly known as: Lipitor Daily. Refills: 0 carvediloL 25 mg Tab Commonly known as: Coreg Take 25 mg by mouth 2 times daily (with meals). 25 mg Refills: 0 clopidogreL 75 mg Tab Commonly known as: Plavix daily. Refills: 0 fish oil-omega-3 fatty acids 1,000 mg Cap Take 2 g by mouth daily. 2 g Refills: 0 glimepiride 1 mg Tab Commonly known as: Amaryl daily. Refills: 0 metFORMIN 500 mg Tr24 Commonly known as: FORTAMET Take 1,000 mg by mouth 2 times daily (with meals). 1,000 mg Refills: 0 oxyCODONE 5 mg Tab Commonly known as: Roxicodone Take 1-2 tablets by mouth every 4 hours as needed for Pain (acute post-op surgical pain). 5-10 mg Quantity: 25 tablet Refills: 0 pantoprazole EC 40 mg Tbec Commonly known as: Protonix TAKE 1 TABLET BY MOUTH TWICE DAILY FOR 56 DAYS Refills: 0 STOPPED Medications tamsulosin 0.4 mg Cap Commonly known as: Flomax Smoking Status at Discharge: Social History Tobacco Use Smoking Status Former Smoker ??? Packs/day: 4.00 ??? Years: 30.00 ??? Pack years: 120.00 ??? Types: Cigarettes ??? Quit date: 1992 ??? Years since quittin.9 Smokeless Tobacco Never Used Instructions Given to Patient at Discharge: There are no outpatient Patient Instructions on file for this admission. General Instructions None Future Appointments and Orders Future Appointments and Orders Future Appointments Provider Department Dept Phone 03/02/2021 1:30 PM [facility], ROOM Hematology Oncology at [facility] Arrive at: [facility] door at end of hallway [phone] 03/15/2021 11:00 AM Kushal Aceves MD Neurology at [facility] Arrive at: [facility] [phone] 03/22/2021 2:00 PM Cayetano Engle MD Urology at [facility] Arrive at: Home [phone] Please do not come in for this visit. Your provider will call you at the number you provided. 03/30/2021 1:30 PM [facility], ROOM Hematology Oncology at [facility] Arrive at: [facility] door at end of hallway [phone] 04/27/2021 1:30 PM [facility]FUSION, ROOM Hematology Oncology at [facility] Arrive at: [facility] door at end of hallway [phone] 05/25/2021 1:30 PM [facility] INFUSION, ROOM Hematology Oncology at [facility] Arrive at: [facility] door at end of hallway [phone] 06/22/2021 1:30 PM [facility], ROOM Hematology Oncology at [facility] Arrive at: [facility] door at end of [address] [phone] Follow-Up: Future Appointments Date Time Provider Department Center 03/02/2021 1:30 PM [facility], ROOM [facility] 03/15/2021 11:00 AM Kushal Aceves MD [facility] NEURO [facility] 03/22/2021 2:00 PM Cayetano Engle MD [facility] URO [facility] 03/30/2021 1:30 PM [facility] INF[facility]ION, ROOM [facility] 04/27/2021 1:30 PM [facility] INFUSION, ROOM [facility] 05/25/2021 1:30 PM [facility] IN[facility]ION, ROOM [facility] 06/22/2021 1:30 PM [facility] INF[facility]ION, ROOM [facility] Primary Care Provider: Alo Carey DO [phone] Follow-up Recommendations for Providers: F/u with Dr. Engle scheduled at 2pm on 03/22/21 Call your doctor if: Please call your doctor immediately or go to an Emergency Department if you notice worsening pain not controlled by pain medications, uncontrolled headache, vision changes, chest pain, difficulty breathing, persistent nausea and vomiting, new redness or swelling in any extremities, new onset weakness or changes in sensation, or for any fevers greater than 101.3 F. Your care was managed by the Urology Team at [facility]. If you have any questions or concerns, please feel free to contact us. Provider Contact Information: Urology Clinic: [facility] (after business hours): documented in this encounter Discharge Instructions * Patient Instructions* Navin Crocker MD - 02/02/2021 6:03 PM EST [facility] Urology Post-Operative Discharge Instructions PHOTO-SELECTIVE VAPORIZATION OF PROSTATE (PVP) Procedure: You have just had a photo-selective vaporization of the prostate, known as a PVP. During this procedure, the surgeon utilized a Greenlight laser to vaporize and remove prostate tissue. The purpose of this procedure is to widen the prostatic channel for easier passage of urine. Activity: ??? For the first 6 weeks after surgery: o Limit your exercise to short walks and minimal stair climbing. Avoid jogging or heavy workouts. o Avoid lifting objects >15 lbs. o You may increase your level of activity after 4-6 weeks. ??? Day after surgery: you may shower. ??? 3 Days after surgery: you may drive as long as you are not taking narcotic medication. ??? 1 Week after surgery: you may return to work. Please continue to follow lift restrictions. ??? 3 Weeks after surgery: you may resume sexual activity. Diet: ??? You may resume regular diet upon discharge from hospital. ??? Drink at least 4 glasses of fluids daily for the first 6 weeks after surgery. Additional intakeis necessary when blood is present in urine. Medication: ??? Resume your daily medications the day after surgery, EXCEPT blood thinners. ??? Please take Colace, a stool softener, twice a day as needed for constipation. ??? Please take up to Tylenol 650 mg, every 6 hours as needed for pain control. ??? NSAIDs can be taken in addition as needed (e.g. Ibuprofen 600mg every 8hrs with meals) ??? Narcotics such as oxycodone are usually not required but can be used if necessary. Note: may cause constipation and drowsiness. ??? Additional medication changes per Inpatient Team discharge instructions. In the next few weeks, you may experience some of the following signs or symptoms: Bleeding: ??? Your urine may appear red due to blood originating from the lower urinary tract. ??? It will range from pink to cranberry colored, which is normal. ??? The bleeding may also be present at the beginning and/or at the end of urination. ??? This may be present up to 6-8 weeks after surgery. ??? As the internal wound heals, small amounts of bleeding are a normal part of the healing process. There is usually passage of small amount of clot/tissue with some bleeding 7-10 days after your surgery ??? Please drink at least 4 glasses of water a day. This will dilute your urine and help prevent clots from forming. ??? Avoid straining when moving your bowels as this puts pressure on the prostate and increase the risk of bleeding. Take a stool softener, such as Colace, as needed to minimize straining. ??? When to be concerned: when urine is opaque red or persistent and difficult passage of large blood clots. Urination: ??? You may also see brown or beige color pieces of tissue pass in your urine. This is a result of the normal healing process and is not cause for concern. ??? You may have some urgency or frequency for the first few weeks. If these symptoms are severe, please call you doctor to discuss treatment options. Call your Doctor If: ??? You are unable to pass your urine. ??? You have a fever of 101 F or higher. ??? You have pain which is not relieved by pain medication. ??? Your urine becomes bloody (like the color of tomato juice). ??? You are passing large blood clots in your urine. Follow Up: ??? Please call [facility] Urology at [phone] to make a routine follow-up appointment 4 weeks after your surgery. The Inpatient team may suggest earlier date if deemed necessary. Please see below if your appointment has already been created. ??? If you have any immediate questions or concerns, you may call the main [facility] line and ask the hasher operator for the ???Urology Resident front desk specialist?? . FOLLOW-UP APPOINTMENT Future Appointments and Orders Future Appointments and Orders Future Appointments Provider Department Dept Phone 03/02/2021 1:30 PM [facility] INFUSION, ROOM Hematology Oncology at [facility] Arrive at: [facility] door at end of [facility] [phone] 03/15/2021 11:00 AM Kushal Aceves MD Neurology at [facility] Arrive at: [facility] [phone] 03/30/2021 1:30 PM [facility] INFUSION, ROOM Hematology Oncology at [facility] Arrive at: [facility] door at end of [facility] [phone] 04/27/2021 1:30 PM [facility] INFUSION, ROOM Hematology Oncology at [facility] Arrive at: [facility] door at end of [facility] [phone] 05/25/2021 1:30 PM [facility] INFUSION, ROOM Hematology Oncology at [facility] Arrive at: [facility] door at end of [facility] [phone] 06/22/2021 1:30 PM ST[facility] INFUSION, ROOM Hematology Oncology at [facility] Arrive at: [facility] door at end of [place] [phone] documented in this encounter Medications at Time of Discharge Medication Sig Dispensed Refills Start Date End Date aspirin EC 81 mg Tablet, Delayed Release (E.C.) Take 81 mg by mouth daily. carvediloL (Coreg) 25 mg Tablet Take 25 mg by mouth 2 times daily (with meals). 12/08/2020 11/18/2021 glimepiride (Amaryl) 1 mg Tablet Take 1 mg by mouth daily. 11/20/2020 10/12/2022 oxyCODONE (Roxicodone) 5 mg Tablet Take 1-2 tablets by mouth every 4 hours as needed for Pain (acute post-op surgical pain). 25 tablet 10/11/2020 04/04/2021 atorvastatin (Lipitor) 40 mg Tablet Daily. 07/17/2021 [...] as of this encounter Progress Notes * Tracy Mann RN - 02/03/2021 11:49 AM ESTSummary: Discharge Narrative Patient discharge paperwork discussed with patient. Patient verbalized understanding. IV removed. Belongings sent with patient. Patient transported to front entrance of hospital to be discharged in private vehicle with brother. No signs of distress noted. * Briana Burton RN - 02/02/2021 11:01 AM EST Pt meets criteria to DC from PACU, reports given to Ale Lou RN, transfer of care to [facility] in room 136 * Briana Burton RN - 02/01/2021 4:14 PM EST Today the patient was questioned regarding symptoms of Covid 19. Patient denies any illness in the past 10 days. Patient reports that he/she has had no direct contact with someone Covid positive, or in quarantine in the past 10 days. Patient reports that he/she has not tested positive for Covid 19 in the past 6 weeks. documented in this encounter H&P Notes * Navin Crocker MD - 02/02/2021 8:33 AM EST Patient Name: Wero Sadler Patient Age: 71 y.o. Birthdate: 1950 Admit date: 02/02/2021 Attending Physician: Cayetano Engle MD Wero Sadler is a 71 y.o. male with history of DM2, CAD s/p CABG (2018), CVA (on ASA/plavix), carotid dz (s/p CEA 08/2020), OLGA, prostate cancer (starting XRT and ADT), presenting for planned PVP. Norecent changes to health status. Patient had urinary retention after a left hip replacement in 10/2020. He had a catheter for a week and was started on flomax. He passed void trial with PVR 107mL. He tried stopping flomax but PVR elevated to 400mL. It came back to 180 when he restarted. ?? UCx showed citrobacter (boo-sensitive) and he was treated with a course for presumed prostatitis toavoid seeding his new joint. ?? Currently takes flomax 0.8mg Drinks 4-5 cups coffee in AM. Otherwise gatorade, sprite, or beer. Occasionally drinks water. IPSS 6 (0/2/1/2/1/0/0); QoL 3 Prostate size: 50g Last PSA: 21.6 (steadily aleksandr from 11 to 15 to 18). MEDICAL AND SURGICAL HISTORY Past Medical History: Diagnosis Date ??? 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 can not read. can see shadows. No vision in left eye since child saavedra accident. ??? Claudication ??? Colon adenocarcinoma 2009 recieved chemo in [place] ??? Coronary artery dissection ??? CPAP (continuous positive airway pressure) dependence CPAP ??? Diabetes treated with medication ??? Gastroesophageal reflux ??? Obstructive sleep apnea ??? Status post chemotherapy 2009 colon cancer ??? Stroke 11-24-19 Past Surgical History: Procedure Laterality Date ??? CARDIAC SURGERY 12/03/2018 triple bypass ??? CAROTID ENDARTERECTOMY ??? CAROTID-SUBCLAVIAN BYPASS GRAFT Bilateral 2017, 2018 ??? FEMORAL-TIBIAL BYPASS GRAFT Left 12/2017 ??? JOINT REPLACEMENT ??? PRO TOTAL HIP ARTHROPLASTY Left 10/10/2020 TOTAL HIP ARTHROPLASTY - POSTERIOR (WRVU 20.72) performed by Ismael Wu MD at [facility] OR ALLERGIES Allergies Allergen Reactions ??? Other [Unclassified Drug] Other (See Comments) Had reaction to a dye used during vascular procedure at [facility] in [place]: shaking Has tolerated MRI and CT contrast. MEDICATIONS No current facility-administered medications on file prior to encounter. Current Outpatient Medications on File Prior to Encounter Medication Sig Dispense Refill ??? tamsulosin (Flomax) 0.4 mg Capsule Take 1 capsule by mouth daily. (Patient taking differently: Take 0.8 mg by mouth every morning.) 14 tablet 0 ??? atorvastatin (Lipitor) 40 mg Tablet Daily. ??? clopidogreL (Plavix) 75 mg Tablet daily. ??? metFORMIN (GLUCOPHAGE) 1,000 mg Tablet Take 1,000 mg by mouth 2 times daily (with meals). ??? amLODIPine (Norvasc) 10 mg Tablet Take 10 mg by mouth daily. ??? aspirin EC 81 mg Tablet, Delayed Release (E.C.) Take 81 mg by mouth daily. ??? fish oil-omega-3 fatty acids 1,000 mg Capsule Take 2 g by mouth daily. ??? oxyCODONE (Roxicodone) 5 mg Tablet Take 1-2 tablets by mouth every 4 hours as needed for Pain (acute post-op surgical pain). (Patient not taking: Reported on 11/17/2020) 25 tablet 0 PHYSICAL EXAM Temp: [36.5 ??C (97.7 ??F)] Heart Rate: [71] Resp: [22] BP: (157)/(90) SpO2: [95 %] Heart Rate from SpO2: -- GEN: Resting comfortably in bed, conversant, NAD. CHEST: Normal work of breathing. CV: Sinus rhythm. 2+ pulses bilaterally. ABD: Soft, non-tender, non-distended. EXTR: Moving spontaneously. SKIN: Warm and dry. NEURO: Alert and follows commands. ASSESSMENT / PLAN 71 y.o. male presenting for PVP. Patient appears fit for surgery. The details, alternatives, risks,and benefits of the procedure were reviewed, and the patient wishes to proceed. Informed consent has been obtained. All questions were answered to the patient's satisfaction. Proceed with surgery. The patient's history and physical exam have been reviewed and completed. There has been no interval change from that of the pre-operative history and physical exam performed within the last 30 days. documented in this encounter Miscellaneous Notes * Care Management Discharge - Jackelyn Marti - 02/02/2021 3:42 PM EST CARE MANAGEMENT FINAL DISCHARGE NOTE Chart reviewed, care reviewed with primary team and at interdisciplinary rounds. Patient is medically ready for discharge to home with support of siblings. Patient resides with two of his brothers. Damian here with patient post- operatively. Siblings able to provide transport upon discharge as patient no longer drives. Needs for Transition of Care: No Needs Identified Plan for discharge is: To Discharge Home with transportation of siblings and support of siblings athome Agency Referrals & Follow-up Care: Contact information for follow-up Alo Carey, Relationship: PCP - [address] [place] [address] Transportation: Brother able to provide transport upon discharge Wheelchair van/Ambulance? No Functional status prior to admission: Independent Home Environment: Others in the home: sibling(s) (Patient lives with his two brothers in [place], [place] (mailing address is [place], [place]).). Current Living Arrangements: home/apartment/condo. Accessibility Concerns:Resides in multi-level home with his two brothers - but he lives on the ground floor - has no stairs to enter - per patient's brother he is legally blind and the siblings assist with his needs. Current Functional Ability: Independent - no assistive device/no assistive person DME used at home: none DME Needed at Discharge: No DME Needs Identified Patient is insured through: Primary Insurance: MEDICARE Payor: MEDICARE / Plan: MEDICARE PART A & B / Product Type: *No Product type* / Secondary Insurance: AARP SUPPLEMENT Prescription Coverage: Yes Preferred Pharmacy: [id number] - [facility] [address] [facility] [address] [facility] [address] [place] [phone] This plan was formulated with input from patient, brother Damian, and team. All are in agreement with plan. Jackelyn Marti RN Clinical EvaporatorElectronics Specialist * Brief Op Note - Navin Crocker MD - 02/02/2021 10:07 AM EST [facility] Brief Operative Note [address] Patient Name: Wero Sadler : [id number] MR#: [id number] Case Date: 02/02/2021 Case Scheduled Time: 829 Surgeon: Surgeon(s) and Role: * Cayetano Engle MD - Primary * Navin Crocker MD - Resident Preoperative diagnosis: BPH Postoperative diagnosis: BPH Procedure(s) (LRB): CYSTO, LASER TURP (WRVU 12.15) (Midline) MODIFIER,GREENLIGHT LASER (Midline) Anesthesia: General Estimated Blood Loss: 2cc Specimens removed during surgery: None Drains: 20Fr 3 way Surgical Closure: NA Disposition: awakened from anesthesia, extubated and taken to the recovery room in a stable condition, having suffered no apparent untoward event. Condition: doing well without problems Complications: None (Please see the Surgical Encounter Summary for any Implant and Specimen details pertinent to this patient.) * Op Note - Navin Crocker MD - 02/02/2021 9:13 AM EST [facility] Operative Note [address] Patient Name: Wero Sadler : [id number] MR#: [id number] Case Date: 02/02/2021 Case Scheduled Time: 08 Surgeon: Surgeon(s) and Role: * Cayetano Engle MD - Primary * Navin Crocker MD - Resident Preoperative diagnosis: BPH Postoperative diagnosis: BPH Procedure(s) (LRB): CYSTO, LASER TURP (WRVU 12.15) (Midline) MODIFIER,GREENLIGHT LASER (Midline) Anesthesia: General Estimated Blood Loss: 2cc Specimens removed during surgery: None Drains: 20Fr 3 way Surgical Closure: NA Disposition: awakened from anesthesia, extubated and taken to the recovery room in a stable condition, having suffered no apparent untoward event. Condition: doing well without problems Complications: None (Please see the Surgical Encounter Summary for any Implant and Specimen details pertinent to this patient.) Findings: Trilobar hyperplasia, relative sparing of anterior right tissue corresponding to cancer location Surgical Indications: Wero Sadler is a 71 y.o. male with history of DM2, CAD s/p CABG (2018), CVA(on ASA/plavix), carotid dz (s/p CEA 08/2020), OLGA, prostate cancer (starting XRT and ADT), presenting for planned PVP. No recent changes to health status. ?? Patient had urinary retention after a??left hip replacement??in 10/2020. He had a catheter for a week and was started on flomax. He passed void trial with PVR 107mL. He tried stopping flomax but PVR elevated to 400mL. It came back to 180 when he restarted. ?? UCx showed citrobacter??(boo-sensitive)??and he was treated with a course for presumed prostatitis to avoid seeding his new joint. ?? Currently takes??flomax 0.8mg Drinks 4-5 cups coffee in AM. Otherwise gatorade, sprite, or beer. Occasionally drinks water. IPSS??6??(0/2/1/2/1/0/0); QoL??3 Prostate size:??50g?? Last PSA:??21.6 (steadily aleksandr from 11 to 15 to 18). Procedure Description: The patient was brought to the Procedure Room and placed in a supine position. General anesthesia was induced. Antibiotic prophylaxis was injected intravenously. The patient's position was changed tolithotomy and all the pressure sites were padded and protected. Prep and drape was performed in [facility] standard sterile fashion. With a 26French cystoscopy sheath and 30-degree lens, we entered the urethra. The entire urethra was scoped, which revealed Normal pendulous and bulbous urethra. We gently passed through this area without any mucosal disruption. The prostatic urethra was 3.5cm long and obstructed mainly due to elevated enlarged median lobe and coapting lateral lobes We entered the bladder. The bladder was scoped systematically. This revealed Moderate bladder trabeculation, otherwise unremarkable. Bladder mucosa was normal.. Ureteral orifices were in a normal shape and normal location. At this point, we used a Moxy Greenlight laser fiber with a setting of 120 to 160 hurtado for vaporization and 10 to 30 hurtado for coagulation, and started vaporizing the prostatic adenoma circumferentially from the bladder neck down to verumontanum. Special attention was drawn to avoid any thermal injury to the trigone and ureteral orifices proximally and external sphincter distally, by limiting the energy between the bladder neck and verumontanum. Additionally, the right anterior prostate was relatively spared as this was the site of the cancer. After adequate removal of obstructive prostatic adenoma and achieving adequate hemostasis, decision was made to conclude the procedure by removing the sheath and placing an 20 Occitan 3-way Krause catheter. The drainage was clear; therefore, we left the bladder irrigation on standby. The patient tolerated the procedure very well and after adequate recovery, he was transferred to the Recovery Room in stable condition. ATTESTATION: I was present for the entirety of the case. No complication occurred throughout the procedure. TOTAL ENERGY USED: 127122 joules. LASING TIME: 16 minutes and 47 seconds. Infection Bundle used? N/A Navin Crocker MD 02/02/2021 Associated attestation - Cayetano Engle MD - 02/03/2021 9:59 AM EST Attestation: Case Date: 02/02/2021 I was present and I participated during the entire procedure (does not need to include opening and closing). Cayetano Engle MD 02/03/2021 documented in this encounter Plan of Treatment Upcoming Encounters Date Type Department Care Team (Late st Contact Info) Description 10/11/2023 10:00 AM EDT Tech Visit [place] [address] Giacomo Queen 10/11/2023 11:15 AM EDT Office [place] [address] [facility] DR [place] [address] 10/18/2023 9:00 AM EDT Office Visit Hematology/Oncology at [address] [phone] [facility] [place] [address] Yessi Renee APRN [address] [place] [address] DR HEMATOLOGY AND ONCOLOGY [place], [place] [phone] 10/18/2023 9:30 AM EDT Infusion Hematology Oncology at [address] [phone] 10/24/2023 9:30 AM EDT Scheduled View Only Radiation Oncology at [address] [phone] [facility] 10/24/2023 10:00 AM EDT Office Visit Radiation Oncology at [address] [phone] 86 Bigg Peters MD [address] [place] [address] DR RADIATION ONCOLOGY [place], [place] [phone] 11/01/2023 9:00 AM EDT Office Visit Hematology/Oncology at [address] [phone] [facility] [place] [address] Yessi Renee APRN [address] [place] [address] DR HEMATOLOGY AND ONCOLOGY [place], [place] [phone] 11/01/2023 9:30 AM EDT Infusion Hematology Oncology at [address] [phone] 12/24/2023 1:00 PM EDT TH Visit (TeleHealth) Radiation Oncology at [address] [phone] [facility] DR HEMATOLOGY [place] [address] documented as of this encounter Procedures Procedure Name Priority Date/Time Associated Diagnosis Comments MODIFIER,GREENLIGHT LASER 02/02/2021 8:55 AM EST Benign prostatic hyperplasia, unspecified whether lower urinary tract symptoms present Laser Vaporization Surgery Prostate, Complete (24997) 02/02/2021 8:55 AM EST Benign prostatic hyperplasia, unspecified whether lower urinary tract symptoms present POCT GLUCOSE Routine 02/02/2021 8:36 AM EST BASIC METABOLIC PANEL Routine 02/02/2021 8:20 AM EST documented in this encounter Results * POCT Glucose (02/02/2021 8:36 AM EST) Glucose, POC 142 65 - 199 mg/dL [facility] Blood 02/02/2021 8:36 AM EST 02/02/2021 8:36 AM EST Cayetano Engle MD POINT OF CARE TEST O RDERABLES [facility] [address] [place] [address] * (ABNORMAL) Basic Metabolic Panel (non-fasting) (02/02/2021 8:20 AM EST) Glucose 123 65 - 199 mg/dL [facility] Comment:Diabetes: >=200 mg/d L plus symptoms Blood Urea Nitrogen 13 10 - 20 mg/dL [facility] Creatinine 0.51(L) 0.80 - 1.50 mg/dL [facility] Sodium 136 135 - 145 mmol/L [facility] Potassium 4.1 3.5 - 5.0 mmol/L [facility] Comment: Please note: ??Patients with WBC >100,000 may have falsely elevated Potassium levels. ??For accurate Potassium quantification in these patients send serum separator tube (gold top) for subsequent determinations. ??Contact the Clinical Chemistry Laboratory if there are any questions. Chloride 103 98 - 107 mmol/L [facility] Carbon Dioxide 19(L) 22 - 31 mmol/L [facility] Anion Gap 14 5 - 15 mmol/L [facility] Calcium 8.3(L) 8.5 - 10.5 mg/dL [facility] Est Glomerular Filtration Rate 107 >=60 mL/min/1. 73 m?? [facility] Comment: This patient? s estimated glomerular filtration rate (eGFR) is between 107 mL/min/1.73 m2 (patients with less muscle mass per kg body weight) and 124 mL/min/1.73 m2 (patients with more muscle mass [...] and symptoms in addition to eGFR. Blood 02/02/2021 8:20 AM EST 02/02/2021 8:28 AM EST Narrative Resulting Agency Comment Spec In Lab Leah Trejo [employer] CHEMISTRY ORDERABL ES [facility] [address] [place] [address] documented in this encounter Visit Diagnoses Diagnosis Benign prostatic hyperplasia, unspecified whether lower urinary tract symptoms present documented in this encounter Admitting Diagnoses Diagnosis BPH (benign prostatic hyperplasia) Unspecified hyperplasia of prostate without urinary obstruction and other lower urinary tract symptoms (LUTS) documented in this encounter Administered Medications Inactive Administered Medications - up to 3 most recent administrations Medication Order MAR Action Action Date Dose Rate Site acetaminophen (Tylenol) tablet 650 mg 650 mg, Oral, EVERY 6 HOURS SCHEDULED, First dose on Ammy 02/02/21 at 1230, Until Discontinued, Maximum daily dose of acetaminophen from all sources not to exceed 4,000 mg., Routine Given 02/03/2021 5:26 AM EST 650 mg Given 02/02/2021 11:26 PM EST 650 mg Given 02/02/2021 5:52 PM EST 650 mg amLODIPine (Norvasc) tablet 10 mg 10 mg, Oral, DAILY, First dose on Sat02/03/21 at 0900, Until Discontinued, Routine Given 02/03/2021 8:09 AM EST 10 mg aspirin EC tablet 81 mg 81 mg, Oral, DAILY, First dose on Sat02/03/21 at 0900, Until Discontinued, Routine Given 02/03/2021 8:09 AM EST 81 mg atorvastatin (Lipitor) tablet 40 mg 40 mg, Oral, DAILY, First dose on Sat02/03/21 at 0900, Until Discontinued, Routine Given 02/03/2021 8:09 AM EST 40 mg carvediloL (Coreg) tablet 25 mg 25 mg, Oral, 2 TIMES DAILY WITH MEALS, First dose on Ammy 02/02/21 at 1700, Until Discontinued, Routine Given 02/03/2021 8:09 AM EST 25 mg Given 02/02/2021 5:52 PM EST 25 mg ciprofloxacin (Cipro) 400 mg in dextrose 5% 200 mL infusion 400 mg, Intravenous, EVERY 12 HOURS, 1 dose, First dose on Ammy 02/02/21 at 2100, Administer over 60 Minutes, Indication for (Active or Suspected): Prophylaxis New Bag 02/02/2021 8:31 PM EST 400 mg 200 mL/ hr clopidogreL (Plavix) tablet 75 mg 75 mg, Oral, DAILY, First dose on Sat02/03/21 at 0900, Until Discontinued, Routine Given 02/03/2021 8:09 AM EST 75 mg docusate sodium (Colace) capsule 100 mg 100 mg, Oral, 2 TIMES DAILY, First dose on Ammy 02/02/21 at 2100, Until Discontinued, Routine Given 02/03/2021 8:09 AM EST 100 mg Given 02/02/2021 8:31 PM EST 100 mg lactated ringers infusion 1,000 mL, Intravenous, CONTINUOUS, Starting on Sat02/02/21 at 0800, Until Sat02/02/21 at 1102, Day of Surgery (Day of Procedure) Restarted 02/02/2021 8:56 AM EST New Bag 02/02/2021 8:22 AM EST 1,000 mLs 30 mL/hr lidocaine (Glydo) 2 % gel ONCE PRN, Starting on Sat02/02/21 at 0846, Until Sat02/02/21 at 1102, Intra-Operative (Intra-Procedure), Routine Given 02/02/2021 9:16 AM EST 11 mLs metFORMIN XR (Glucophage XR) tablet 1,000 mg 1,000 mg, Oral, 2 TIMES DAILY WITH MEALS, First dose on Sat02/02/21 at 1700, Until Discontinued, Routine Given 02/03/2021 8:09 AM EST 1,000 mg Given 02/02/2021 5:52 PM EST 1,000 mg pantoprazole EC (Protonix) tablet 40 mg 40 mg, Oral, DAILY, First dose on Sat02/03/21 at 0900, Until Discontinued, DO NOT CRUSH OR OPEN, Routine Given 02/03/2021 8:09 AM EST 40 mg phenazopyridine (Pyridium) tablet 100 mg 100 mg, Oral, ONCE, On Sat02/03/21 at 0600, 1 dose, Administer once at 0600 on POD #1 Given 02/03/2021 6:00 AM EST 100 mg phenazopyridine (Pyridium) tablet 100 mg 100 mg, Oral, EVERY 8 HOURS PRN, For Dysuria, Starting on Sat02/02/21 at 1140, Until Sat02/03/21 at 1407 Given 02/03/2021 5:25 AM EST 100 mg sodium chloride (Aqua Care Sodium Chloride) 0.9 % irrigation 3,000 mL 3,000 mL, Irrigation, CONTINUOUS, Starting on Sat02/02/21 at 1230, Until Sat02/03/21 at 1407, Routine New Bag 02/02/2021 3:37 PM EST 3,000 mLs sodium chloride 0.9 % (flush) (BD PosiFlush Normal Saline 0.9) flush 10 mL 10 mL, Intravenous, 2 TIMES DAILY, First dose on Sat02/02/21 at 1230, Until Discontinued, Routine Given 02/03/2021 9:00 AM EST 10 mLs Given 02/02/2021 8:32 PM EST 10 mLs Given 02/02/2021 11:30 AM EST 10 mLs documented in this encounter Active and Recently Administered Medications Times are shown in EST. Scheduled Medication Order 02/01/2021 02/02/2021 02/03/2021 acetaminophen (Tylenol) tablet 650 mg 650 mg, Oral, EVERY 6 HOURS SCHEDULED, First dose on Ammy 02/02/21 at 1230, Until Discontinued, Maximum daily dose of acetaminophen from all sources not to exceed 4,000 mg., Routine 1230 (Not Given - Provider: Ale Lou RN - Reason: Patient/family refused)1752 (Given - Provider: Ale Lou RN)2326 (Given - Provider: Ruth Morales, RN) 0526 (Given - Provider: Ruth Morales, RN) amLODIPine (Norvasc) tablet 10 mg 10 mg, Oral, DAILY, First dose on Sat02/03/21 at 0900, Until Discontinued, Routine 0809 (Given - Provid er: Tracy Mann RN) aspirin EC tablet 81 mg 81 mg, Oral, DAILY, First dose on Sat02/03/21 at 0900, Until Discontinued, Routine 0809 (Given - Provid er: Tracy Mann RN) atorvastatin (Lipitor) tablet 40 mg 40 mg, Oral, DAILY, First dose on Sat02/03/21 at 0900, Until Discontinued, Routine 0809 (Given - Provid er: Tracy Mann, AYE) carvediloL (Coreg) tablet 25 mg 25 mg, Oral, 2 TIMES DAILY WITH MEALS, First dose on Ammy 02/02/21 at 1700, Until Discontinued, Routine 1752 (Given - Provider: Ale Lou RN) 0809 (Given - Provider: Tracy Mann RN) ciprofloxacin (Cipro) 400 mg in dextrose 5% 200 mL infusion (COMPLETED) 400 mg, Intravenous, SENIOR TALENT ACQUISITION SPECIALIST TO O.R., 1 dose, On Ammy 02/02/21 at 0800, Administer over 60 Minutes, Day of Surgery (Day of Procedure), Indication for (Active or Suspected): Prophylaxis 0856 (Given - Provider: Vilma Erazo CRNA) ciprofloxacin (Cipro) 400 mg in dextrose 5% 200 mL infusion (COMPLETED) 400 mg, Intravenous, EVERY 12 HOURS, 1 dose, First dose on Sat02/02/21 at 2100, Administer over 60 Minutes, Indication for (Active or Suspected): Prophylaxis 2030 (New Bag - Provider: Ruth Morales RN)2130 (Stopped - Provider: Ruth Morales RN) clopidogreL (Plavix) tablet 75 mg 75 mg, Oral, DAILY, First dose on Sat02/03/21 at 0900, Until Discontinued, Routine 0809 (Given - Provid er: Tracy Mann RN) docusate sodium (Colace) capsule 100 mg 100 mg, Oral, 2 TIMES DAILY, First dose on Sat02/02/21 at 2100, Until Discontinued, Routine 2030 (Given - Provider: Ruth Morales RN) 0809 (Given - Provider: Tracy Mann RN) metFORMIN XR (Glucophage XR) tablet 1,000 mg 1,000 mg, Oral, 2 TIMES DAILY WITH MEALS, First dose on Sat02/02/21 at 1700, Until Discontinued, Routine 175 (Given - Provider: Ale Lou RN) 0809 (Given - Provider: Tracy Mann RN) pantoprazole EC (Protonix) tablet 40 mg 40 mg, Oral, DAILY, First dose on Sat02/03/21 at 0900, Until Discontinued, DO NOT CRUSH OR OPEN, Routine 0809 (Given - Provid er: Tracy Mann RN) phenazopyridine (Pyridium) tablet 100 mg (COMPLETED) 100 mg, Oral, ONCE, On Sat02/03/21 at 0600, 1 dose, Administer once at 0600 on POD #1 0600 (Given - Provid er: Ruth Morales RN) sodium chloride 0.9 % (flush) (BD PosiFlush Normal Saline 0.9) flush 10 mL 10 mL, Intravenous, 2 TIMES DAILY, First dose on Sat02/02/21 at 1230, Until Discontinued, Routine 1130 (Given - Provider: Ale Lou RN)2031 (Given - Provider: Ruth Morales RN) 0900 (Given - Provider: Tracy Mann RN) Continuous Medication Order 02/01/2021 02/02/2021 02/03/2021 lactated ringers infusion (CANCELED) 1,000 mL, Intravenous, CONTINUOUS, Starting on Ammy 02/02/21 at 0800, Until Ammy 02/02/21 at 1102, Day of Surgery (Day of Procedure) 0822 (New Bag - Provider: Briana Jonas RN)0855 (Paused - Provider: Vilma Erazo CRNA - Comment: Switch to gravity)0856 (Restarted - Provider: Vilma Erazo CRNA)0951 (Anesthesia Volume Adjustment - Provider: Vilma Erazo CRNA) sodium chloride (Aqua Care Sodium Chloride) 0.9 % irrigation 3,000 mL 3,000 mL, Irrigation, CONTINUOUS, Starting on Ammy 02/02/21 at 1230, Until Sat02/03/21 at 1407, Routine 1537 (New Bag - Provider: Keron Lou RN - Comment: Bag #8) sodium chloride 0.9% infusion 1,000 mL, at 100 mL/hr, Intravenous, CONTINUOUS, Starting on Ammy 02/02/21 at 1230, Until Sat02/03/21 at 1407, Administer 100 mL/hr until tolerating liquids (more than 300 mL). 1230 (Not Given - Provider: Ale Lou RN - Reason: Per MD Order) PRN Medication Order 02/01/2021 02/02/2021 02/03/2021 lidocaine (Glydo) 2 % gel (CANCELED) ONCE PRN, Starting on Ammy 02/02/21 at 0846, Until Ammy 02/02/21 at 1102, Intra-Operative (Intra-Procedure), Routine 0916 (Given - Provider: Cayetano Engle MD - Comment: injected into urethra at end of case prior to catheter insertion) lidocaine (Xylocaine) 1% (10 mg/mL) injection 3 mg 3 mg (0.3 mL), Subcutaneous, ONCE PRN, 1 dose, Starting on Ammy 02/02/21 at 1140, Until Sat02/03/21 at 1407, for discomfort with PIV insertion, Routine ondansetron (pf) (Zofran) (2 mg/mL) injection 4 mg 4 mg, Intravenous, EVERY 8 HOURS PRN, Starting on Ammy 02/02/21 at 1140, Until Sat02/03/21 at 1407, Nausea oxybutynin (Ditropan) tablet 5 mg 5 mg, Oral, ONCE PRN, 1 dose, Starting on Ammy 02/02/21 at 1140, Until Sat02/03/21 at 1407, For Severe Bladder Spasms, Routine phenazopyridine (Pyridium) tablet 100 mg 100 mg, Oral, EVERY 8 HOURS PRN, For Dysuria, Starting on Ammy 02/02/21 at 1140, Until Sat02/03/21 at 1407 0525 (Given - Provid er: Ruth Morales RN) sodium chloride 0.9 % (flush) (BD PosiFlush Normal Saline 0.9) flush 5-20 mL 5-20 mL, Intravenous, EVERY 1 MIN PRN, Starting on Ammy 02/02/21 at 1140, Until Sat02/03/21 at 1407, flush, Flush pertains to all indwelling lines. Flush per protocol found in the job aid using the link provided on this medication record., Routine documented in this encounter Care Teams Sow Farm Barn Technician Relationship Specialty Start Date End Date Alo Carey DO [address] [place] [address] [place] [phone] PCP - General Internal Medicine 08/31/20 07/03/23 documented as of this encounter
--- OUTSIDE RECORDS SUMMARY | 2023-10-06 00:43 | XMS_ITS | Encounter Summary ---
Author Organization [facility] [place] [address] Care Team Providers Care Carburetor Mechanic Name Role Phone Alo Carey Primary Care Provider [phone] Encounter Details Date Type Department Care Team (Late st Contact Info) Description 03/29/2021 Telephone Hematology Oncology at [address] [phone] Leida Watters RN Social History Tobacco Use Types Packs/Day [...] encounter Miscellaneous Notes * Telephone Encounter - Leida Watters RN - 03/29/2021 12:22 PM EST Patient scheduled for Lupron at [facility] tomorrow 03/30. Review of chart suggests that he is receivingthese at Dr. Myers's office. Telephone call to patient to clarify. He reports that he is receiving Lupron at Dr. Myers's office, is scheduled to get one tomorrow at 8 AM there. States that he is getting a 3 month (22.5mg) dose tomorrow. Will cancel future infusion appts for Lupron at [facility]. documented in this encounter Plan of Treatment Upcoming Encounters Date Type Department Care Team (Late st Contact Info) Description 10/11/2023 10:00 AM EDT Tech [place] [address] Giacomo Queen 10/11/2023 11:15 AM EDT Office [place] [phone] Basim Barr MD [facility] [place] [address] 10/18/2023 9:00 AM EDT Office Visit Hematology/Oncology at [address] [phone] Cl Hess MD [facility] [place] [address] Yessi Renee APRN [address] [place] [address] DR HEMATOLOGY AND ONCOLOGY [place], [place] [id number] 10/18/2023 9:30 AM EDT Infusion Hematology Oncology at [address] [phone] 10/24/2023 9:30 AM EDT Scheduled View Only Radiation Oncology at [address] [phone] Rad Nurse, [facility] 10/24/2023 10:00 AM EDT Office Visit Radiation Oncology at [address] [phone] Bigg Peters MD [address] [place] [address] DR RADIATION ONCOLOGY [place], [place] [address] 11/01/2023 9:00 AM EDT Office Visit Hematology/Oncology at [address] [phone] Cl Hess MD [facility] [place] [address] Yessi Renee APRN [address] [place] [address] DR HEMATOLOGY AND ONCOLOGY [place], [place] [address] 11/01/2023 9:30 AM EDT Infusion Hematology Oncology at [address] [phone] 12/24/2023 1:00 PM EDT TH Visit (TeleHealth) Radiation Oncology at [address] [phone] Ping Moore PA [facility] HEMATOLOGY [place] [address] documented as of this encounter Visit Diagnoses Not on filedocumented in this encounter Care Teams Carburetor Mechanic Relationship Specialty Start Date End Date Alo Carey DO [address] [place] [address] [place] [phone] PCP - General Internal Medicine 08/31/20 07/03/23 documented as of this encounter
--- OUTSIDE RECORDS SUMMARY | 2023-10-06 00:43 | XMS_ITS | Encounter Summary ---
Author Organization [facility] [place] [address] Care Team Providers Care Human Resources Executive Name Role Phone Alo Carey DO Primary Care Provider [phone] Encounter Details Date Type Department Care Team (Late st Contact Info) Description 03/29/2021 [place] [address] Kushal Aceves MD [facility] [place] [address] Social History Tobacco Use Types Packs/Day Years [...] encounter Miscellaneous Notes * Telephone Encounter - Bela Fraser - 05/03/2021 6:50 AM EST Imaging from [facility] received and in eD-H. Provider notified. * Addendum Note - Kushal Aceves MD - 05/01/2021 5:54 PM ESTAddended by: KUSHAL ACEVES on: 05/01/2021 05:54 PM Modules accepted: Orders * Addendum Note - Yuliya De Jesus RN - 05/01/2021 12:14 PM ESTAddended by: YULIYA DE JESUS on: 05/01/2021 12:14 PM Modules accepted: Orders * Telephone Encounter - Bela Fraser - 05/01/2021 10:43 AM EST Patient states that the imaging is scheduled for tomorrow at [facility]. Patient states that he is going to try to get in today, 05/01 if possible. Patient states that to have the study performed, he had to complete a covid test and that [facility] told him that they need an order for this test from our office. Patient advised that [facility] send a message to the nurse. * Telephone Encounter - Bela Fraser - 03/29/2021 2:39 PM EST Call placed to patient to see if he would like to have CT Head and Neck performed at [facility]. Patient advises that he would like this performed at [facility]. Note to provider and RN to enter orders. documented in this encounter Plan of Treatment Upcoming Encounters Date Type Department Care Team (Late st Contact Info) Description 10/11/2023 10:00 AM EDT Tech Visit V[place] [phone] Giacomo Queen 10/11/2023 11:15 AM EDT Office [place] [address] Basim Barr MD [facility] [place] [address] 10/18/2023 9:00 AM EDT Office Visit Hematology/Oncology at [address] [phone] Cl Hess MD [facility] [place] [address] Yessi Renee [address] HEMATOLOGY AND ONCOLOGY [place], [place] [address] 10/18/2023 9:30 AM EDT Infusion Hematology Oncology at [address] [phone] 10/24/2023 9:30 AM EDT Scheduled View Only Radiation Oncology at [address] [phone] Rad Nurse, [facility] 10/24/2023 10:00 AM EDT Office Visit Radiation Oncology at [address] [phone] Bigg Peters MD [address] [place] [address] DR RADIATION ONCOLOGY [place], [place] [phone] 11/01/2023 9:00 AM EDT Office Visit Hematology/Oncology at [address] [phone] Cl Hess MD [facility] [place] [place] [address] Yessi Renee [address] HEMATOLOGY AND ONCOLOGY [place], [place] [address] 11/01/2023 9:30 AM EDT Infusion Hematology Oncology at [address] [phone] 12/24/2023 1:00 PM EDT TH Visit (TeleHealth) Radiation Oncology at [address] [phone] Ping Moore PA [facility] HEMATOLOGY [place] [address] documented as of this encounter Visit Diagnoses Diagnosis Stenosis of carotid artery, unspecified laterality Pre-procedure lab exam Pre-procedural laboratory examination documented in this encounter Care Teams Human Resources Executive Relationship Specialty Start Date End Date Alo Carey DO [address] [place] [address] [place] [phone] PCP - General Internal Medicine 08/31/20 07/03/23 documented as of this encounter
--- OUTSIDE RECORDS SUMMARY | 2023-10-06 00:43 | XMS_ITS | Encounter Summary ---
Author Organization [facility] [place] [address] Care Team Providers Care Zinc Chloride Operator Name Role Phone YungAlo santiago Primary Care Provider [phone] Encounter Details Date Type Department Care Team (Latest Contact Info) Description 03/22/2021 2:00 PM EST TH Visit (TeleHealth) [place] [address] Cayetano Engle MD [facility] [place] [address] Benign prostatic hyperplasia, unspecified whether lower urinary tract symptoms present Social History Tobacco Use Types Packs/Day Years [...] as of this encounter Progress Notes * Cayetano Engle MD - 03/22/2021 2:00 PM EST [facility] SECTION OF UROLOGY POSTOPERATIVE TELEPHONE VISIT Called patient for the appointment. Patient consented to proceed with a Telehealth visit and understands that this will be billed similar to a clinic visit. Name: Wero Sadler : 1950 Date: 03/22/2021 History of Present Illness: Wero Sadler is a 71 y.o. male with hx DM2, CAD s/p CABG (2018), CVA (on ASA/plavix), carotid dz (s/p CEA 08/2020), OLGA, prostate cancer, who underwent a PVP on 02/02/21, which was uncomplicated. Preop Currently takes flomax 0.8mg Drinks 4-5 cups coffee in AM. Otherwise gatorade, sprite, or beer. Occasionally drinks water. IPSS 6 (0/2/1/2/1/0/0); QoL 3; PVR 180mL Prostate size: 50g Last PSA: 21.6 (steadily aleksandr from 11 to 15 to 18). PBx reportedly showed low volume, low risk prostate cancer and he was advised active surveillance at that time by his urologist in [place]. MRI ordered due to PSA velocity and PSA >20 which showed a 50g prostate with PIRADS 5 lesion at anterior right TZ with a 24% risk of BEN. No evidence of ferdinand or bone dz. Bone scan: indeterminate uptake in proximal left femur which is where his hip was replaced CT a/p - no definitive matastasis. 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 Postop Patient seen with clot retention at [facility] and required cysto clot evacuation with Dr. Myers around the hol. Since then, the hematuria has resolved. Otherwise just has residual urgency but that is improving. IPSS: 5 (0/1/0/3/1/0/0), QoL 1 Incontinence? no Hematuria? no Dysuria?no Assessment: Wero Sadler is a 71 y.o. male on ASA/plavix for hx CVA, with prostate cancer and BPH who is 6 weeks status post a PVP. He had an issue with postop clot retention 3 weeks postop but is now recovering well. Plan: - Resume activity as tolerated - f/u with radiation oncology as previously planned (ok for radiation from my perspective in June 2021) - Will f/u with Dr. Myers's office for Lupron injections (per patient) The patient expressed understanding and agreement with the above. Cayetano Engle MD Section of Urology [facility] Office: [phone] I spent 15 minutes reviewing the patient's diagnostic tests, speaking with the patient, and documenting in the record. documented in this encounter Plan of Treatment Upcoming Encounters Date Type Department Care Team (Late st Contact Info) Description 10/11/2023 10:00 AM EDT Tech Visit [place] [address] Giacomo Queen 10/11/2023 11:15 AM EDT Office [place] [phone] Basim Barr MD [facility] [place] [address] 10/18/2023 9:00 AM EDT Office Visit Hematology/Oncology at [address] [phone] Cl Hess MD [facility] [place] [address] Yessi Renee APRN [address] [place] [address] DR HEMATOLOGY AND ONCOLOGY [place], [place] [id number] 10/18/2023 9:30 AM EDT Infusion Hematology Oncology at [address] [phone] 10/24/2023 9:30 AM EDT Scheduled View Only Radiation Oncology at [address] [phone] [facility] 10/24/2023 10:00 AM EDT Office Visit Radiation Oncology at [address] [phone] Bigg Peters MD [address] [place] [address] DR RADIATION ONCOLOGY [place], [place] [address] 11/01/2023 9:00 AM EDT Office Visit Hematology/Oncology at [address] [phone] Cl Hess MD [facility] [place] [address] Yessi Renee APRN [address] [place] [address] DR HEMATOLOGY AND ONCOLOGY [place], [place] [phone] 11/01/2023 9:30 AM EDT Infusion Hematology Oncology at [address] [phone] 12/24/2023 1:00 PM EDT TH Visit (TeleHealth) Radiation Oncology at [address] [phone] Ping Moore PA [facility] [place] [address] documented as of this encounter Visit Diagnoses Diagnosis Benign prostatic hyperplasia, unspecified whether lower urinary tract symptoms present documented in this encounter Care Teams Zinc Chloride Operator Relationship Specialty Start Date End Date Alo Carey DO [address] [place] [address] [place] [address] PCP - General Internal Medicine 08/31/20 07/03/23 documented as of this encounter
--- OUTSIDE RECORDS SUMMARY | 2023-10-06 00:43 | XMS_ITS | Encounter Summary ---
[place] [address] Care Team Providers Care Charge Coordinator Name Role Phone CherryAlo Lon RUTHERFORD Primary Care Provider [phone] Reason for Referral * Diagnostic Test (Routine) - Closed Specialty Diagnoses / Procedures Referred By Marques livingston Referred To Contact Radiology Diagnoses Malignant neoplasm of prostate Procedures MRI Pelvis wo (Prostate) Bigg Peters MD [address] [place] [address] [place] [address] [place] [address] Referral ID Status Reason Start Date Expiration Date V isits Requested Visits Authorized [id number] Closed Specialty Service Requested 04/11/2021 10/09/2022 1 1 Encounter Details Date Type Department Care Team (Late st Contact Info) Description 04/11/2021 Orders Only Radiation Oncology at [address] [phone] Bigg Peters MD [address] [place] [address] [place] [address] Malignant neoplasm of prostate Social [...] AM EDT Tech [place] [address] Giacomo Queen 10/11/2023 11:15 AM EDT Office Visit [place] [phone] Basim Barr MD [facility] [place] [address] 10/18/2023 9:00 AM EDT Office Visit Hematology/Oncology at [address] [phone] Cl Hess MD [facility] [place] [address] Yessi Renee APRN [address] [place] [address] DR HEMATOLOGY AND ONCOLOGY [place], [place] [phone] 10/18/2023 9:30 AM EDT Infusion Hematology Oncology at [address] [phone] 10/24/2023 9:30 AM EDT Scheduled View Only Radiation Oncology at [address] [phone] [facility] 10/24/2023 10:00 AM EDT Office Visit Radiation Oncology at [address] [phone] Bigg Peters MD [address] [place] [address] DR RADIATION [place] [address] 11/01/2023 9:00 AM EDT Office Visit Hematology/Oncology at [address] [phone] Cl Hess MD [facility] [place] [address] Yessi Renee APRN [address] [place] [address] [place] [address] 11/01/2023 9:30 AM EDT Infusion Hematology Oncology at [address] [phone] 12/24/2023 1:00 PM EDT TH Visit (TeleHealth) Radiation Oncology at [address] [phone] Ping Moore PA [facility] [place] [address] documented as of this encounter Results * MRI Pelvis wo [...] have questions please contact the health care specialist that requested your imaging first. ? Electronically signed by: Madan Angel MD, [facility] ([phone]), at 07/12/2021 5:26 PM Narrative 07/12/2021 5:26 [...] who have questions please contactthe health care specialist that requested your imaging first. Electronically signed by: Madan Angel MD, [facility]([phone]), at 07/12/2021 5:26 PM Bigg Peters MD [facility] MRI ORDERABLES documented in this encounter Visit Diagnoses Diagnosis Malignant neoplasm of prostate Malignant neoplasm of prostate documented in this encounter Care Teams Charge Coordinator Relationship Specialty Start Date End Date Alo Carey DO [address] [place] [address] [place] [phone] PCP - General Internal Medicine 08/31/20 07/03/23 documented as of this encounter
--- OUTSIDE RECORDS SUMMARY | 2023-10-06 00:43 | XMS_ITS | Encounter Summary ---
Author Organization [facility] Address [facility] [place] [address] Care Team Providers Care Budget Consultant Name Role Phone Alo Carey Primary Care Provider [phone] Encounter Details Date Type Department Care Team (Latest Contact Info) Description 05/04/2021 9:00 AM EST Office [place] [address] Pedro Mai MD [facility] [place] [address] Preop examination; Primary osteoarthritis of right hip; ASCVD (arteriosclerotic cardiovascular disease) Social History Tobacco Use Types Packs/Day Years [...] Time Taken Comments Blood Pressure 164/83 05/04/2021 9:29 AM EST Pulse 74 05/04/2021 9:29 AM EST Temperature - - Respiratory Rate - - Oxygen Saturation 97% 05/04/2021 9:2 9 AM EST Inhaled Oxygen Concentration - - Weight 111.8 kg (246 lb 6.4 oz) 05/04/2021 9:29 AM EST per patient from CT scan 2 days ago Height 180.3 cm (5' 11) 05/04/2021 9:2 9 AM EST Body Mass Index 34.37 05/04/2021 9:29 AM EST documented in this encounter Progress Notes * Pedro Mai MD - 05/04/2021 9:00 AM EST Images from the original note were not included. CC: Wero Sadler is a 71 y.o. male known patient to the perioperative clinic with the following problems and medications that is being seen in the clinic for consultation at the request of his surgeon Dr. Ismael Wu for preoperative risk stratification and management recommendations in anticipation of right total hip arthroplasty for symptomatic OA. HPI - Pain - Location - right hip, Quality - aching, Onset - gradual, Duration - several years Intensity - moderate to severe, Aggravating factors - standing, walking, stepping, bending, Alleviating factors - APAP, rest, Associated - has CAD, s/p CABG, carotid stenosis s/p left CEA at the same timeas his CABG, abrupt loss of central vision on OD last year in November, had left forearm numbness p receding that, had urgent evaluations with vascular surgeon and underwent carotid duplex, MRI brainand neuro and ophthalmology evaluations with AION as resultant diagnosis. He is happy with other JIMI from last year. He had TURP after that surgery and has done well with that. From his PCP list: Patient Active Problem List Diagnosis Code ??? [...] ??? History of claudication Z86.79 Current Outpatient Medications Medication Sig Dispense Refill ??? timoloL (Timoptic) 0.25 % Drops Apply 1 drop to eye Twice daily. ??? carvediloL (Coreg) 25 mg Tablet Take 25 mg by mouth 2 times daily (with meals). ??? glimepiride (Amaryl) 1 mg Tablet daily. ??? atorvastatin (Lipitor) 40 mg Tablet Daily. [...] Take 2 g by mouth daily. ??? pantoprazole EC (Protonix) 40 mg Tablet, Delayed Release (E.C.) TAKE 1 TABLET BY MOUTH TWICE DAILY FOR 56 DAYS Current Facility-Administered Medications Medication Dose Route Frequency Provider Last Rate Last Admin ??? mupirocin (Bactroban) 2 % ointment 1 each 1 each Topical (Top) BID Ismael Wu MD 1 each at 05/04/21 1111 Social History Occupational History ??? 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 Smoking status: Former Smoker Packs/day: 4.00 Years: 30.00 Pack years: 120.00 Types: Cigarettes Quit date: 1992 Years since quittin.1 ??? Smokeless tobacco: Never Used Vaping Use ??? Vaping Use: Never used Substance and Sexual Activity ??? Alcohol use: Yes Alcohol/week: 7.0 standard drinks Types: 7 Cans of beer per week ??? Drug use: Not Currently ??? Sexual activity: Not on file Family History Problem Relation Age of Onset ??? Diabetes Father Review of Systems Constitutional: Negative for chills, diaphoresis and fever. Respiratory: Negative for cough, shortness of breath and wheezing. Uses CPAP for OLGA. Cardiovascular: Negative for chest pain, palpitations and leg swelling. Gastrointestinal: Negative for abdominal pain, anal bleeding and blood in stool. 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 He was seen by GI in April for pancreatic cyst noted on imaging for his prostate cancer. Endocrine: Negative for polydipsia and polyphagia. Genitourinary: Negative for dysuria, flank pain and hematuria. Had TURP at [facility] last year after other JIMI and has been on Lupron for prostate cancer. He is also anticipated to have radiation therapy in the future. Skin: Negative for pallor and rash. Allergic/Immunologic: Negative for environmental allergies and immunocompromised state. Neurological: Negative for syncope and speech difficulty. Had a mechanical fall in past year. He isnot using a cane today. Uses one mainly for vision impairment. He has his brother with him who is helping him in wheelchair. Hematological: Negative for adenopathy. Does tolerate DAPT well. Psychiatric/Behavioral: Negative for confusion, decreased concentration and dysphoric mood. Allergies: Allergies Allergen Reactions ??? Other [Unclassified Drug] Other (See Comments) Had reaction to a dye used during vascular procedure at [facility] in [place]: shaking Has tolerated MRI and CT contrast. Physical Exam: Last Set of Vitals and Range over past 24 hours: Last value Range last 24 hrs Heart Rate Heart Rate: 74 Heart Rate: [74] Blood Pressure BP: 164/83 BP: (144-164)/(83-87) SpO2 SpO2: 97 % SpO2: [97 %] BP at Apr 26 visit - 131/49 Estimated body mass index is 34.37 kg/m?? as calculated from the following: Height as of this encounter: 180.3 cm (5' 11). Weight as of this encounter: 111.8 kg (246 lb 6.4 oz). Physical Exam Constitutional: He is oriented to person, place, and time. He appears well- developed. No distress. HENT: Head: Normocephalic and atraumatic. Eyes: Right eye exhibits no discharge. Left eye prosthetic. No scleral icterus. Neck: Neck supple. No JVD present. Left neck vertical scar consistent with prior vascular surgery. Cardiovascular: Normal rate, regular rhythm and normal heart sounds. Exam reveals no gallop and no friction rub. No murmur heard. Pulmonary/Chest: Effort normal and breath sounds normal. No stridor. No respiratory distress. He has no wheezes, no rales. He exhibits no spinal tenderness. Abdominal: Soft. Bowel sounds are normal. No HSM percussed or palpated. There is no CVA tenderness.There is no rebound and no guarding. Musculoskeletal: He exhibits no edema. He is ambulatory without aide and using wheelchair outside the room, he has 0 IR right hip with impaired flexion. . Neurological: He is alert and oriented to person, place, and time. He exhibits no resting or intentional tremors, he has good recall. Skin: Skin is warm and dry. He is not diaphoretic. No pallor. Psychiatric: He has a normal mood and affect. His behavior is normal. Judgment and thought content normal. Lab Results Component Value Date WBC 6.7 05/04/2021 RBC 4.33 (L) 05/04/2021 HGB 13.5 (L) 05/04/2021 HCT 41.2 05/04/2021 MCV 95.2 (H) 05/04/2021 MCH 31.2 05/04/2021 MCHC 32.8 05/04/2021 PLATELET 211 05/04/2021 RDWCV 13.1 05/04/2021 Lab Results Component Value Date NA 140 05/04/2021 K 4.6 05/04/2021 CL 104 05/04/2021 CO2 25 05/04/2021 BUN 19 05/04/2021 CREATININE 0.84 05/04/2021 GLUCOSE 178 05/04/2021 CALCIUM 9.7 05/04/2021 ESTGFR 87 05/04/2021 Lab Results Component Value Date PT 11.2 05/04/2021 INR 1.0 05/04/2021 PTT 29 05/04/2021 Estimated Creatinine Clearance: 99.6 mL/min (based on SCr of 0.84 mg/dL). EKG (image reviewed): Normal sinus rhythm Normal ECG No previous ECGs available Confirmed by Janki Allred MD ([id number]) on 10/06/2020 3:29:14 PM Xray - severe OA right hip A/P No diagnosis found. His CAD is stable. He would like to proceed with the JIMI on the right and is happy with the other JIMI. He has been evaluated by Dr. Aceves for his CVA history. He finds his hip pain impairing his activities, continues to attend to self and helps with home chores in the kitchen, does his own laundry, lives with two brothers, another brother (accompanied him today) and ROBEL are available to help as needed. 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 I will defer to Dr. Aceves on further middle school counselor regards this and he has kindly offered to review his chart and offer further advice. Patient elects to proceed with right JIMI. He was counseled on importance of continuing his cardiac medication including aspirin and need to interrupt the Plavix as instructions provided below. Major Risk Factor per the Revised Cardiac Risk Index (Bold if present) - CAD (CABG x3 in 2019, had Left CEA at same time, CHF, CVA (AION - central vision loss OD, baseline OS loss) or TIA, DM2 on insulin, or a Creatinine >2 Risk diagnosis for MACE (major adverse cardiovascular event = Myocardial infarction, pulmonary edema, ventricular fibrillation, primary cardiac arrest, or complete heart block.) : Elevated >1% . The patient describes a functional status of equal to 4METs and based on the ACC/AHA 2014 guideline no further cardiovascular testing is indicated. ARISCAT/CANET Score - estimates the risk of postoperative pulmonary complications as being low ~3.5%. Per the ACS NSQIP calculator I estimated the following. Patient instructions: Last dose of Plavix on May 19Saturday. Take aspirin, carvedilol, timolol eye drops and amlodipine the morning of surgery. Do NOT take metformin or glimepiride the morning of surgery. Take other usual medications the night before surgery. Bring CPAP to surgery. RECOMMENDATION for Postoperative Care: Continue CPAP Continue aspirin, statin, carvedilol (hold if SBP<105 or HR<55), amlodipine (hold if SBP<120) and timolol eye drops Resume metformin and Amaryl with oral intake FSBS q 4 with sensitive correction Humalog Resume Plavix when okay to do so from a surgical and anesthesiology perspective. Is this patient a candidate for expedited recovery after total joint replacement no CAD, vision impaired, DM2. RAPT is 812 implying potential for discharge home after hospital stay with support of his family. documented in this encounter Plan of Treatment Upcoming Encounters Date Type Department Care Team (Late st Contact Info) Description 10/11/2023 10:00 AM EDT Tech [place] [address] Giacomo Queen 10/11/2023 11:15 AM EDT Office Visit [place] [phone] Basim Barr MD [facility] [place] [address] 10/18/2023 9:00 AM EDT Office Visit Hematology/Oncology at [address] [phone] Cl Hess MD [facility] [place] [place] [address] Yessi Renee APRN [address] [place] [address] DR HEMATOLOGY AND ONCOLOGY [place], [place] [phone] 10/18/2023 9:30 AM EDT Infusion Hematology Oncology at [address] [phone] 10/24/2023 9:30 AM EDT Scheduled View Only Radiation Oncology at [address] [phone] [facility] 10/24/2023 10:00 AM EDT Office Visit Radiation Oncology at [address] [phone] Bigg Peters MD [address] [place] [address] DR RADIATION ONCOLOGY [place], [place] [address] 11/01/2023 9:00 AM EDT Office Visit Hematology/Oncology at [address] [phone] Cl Hess MD [facility] [place] [place] [address] Yessi Renee APRN [address] [place] [address] DR HEMATOLOGY AND ONCOLOGY [place], [place] [id number] 11/01/2023 9:30 AM EDT Infusion Hematology Oncology at [address] [phone] 12/24/2023 1:00 PM EDT TH Visit (TeleHealth) Radiation Oncology at [address] [phone] Ping Moore PA [facility] HEMATOLOGY [place] [address] documented as of this encounter Visit Diagnoses Diagnosis Preop examination Preoperative examination, unspecified Primary osteoarthritis of right hip Primary localized osteoarthrosis, pelvic region and thigh ASCVD (arteriosclerotic cardiovascular disease) Unspecified cardiovascular disease documented in this encounter Care Teams Budget Consultant Relationship Specialty Start Date End Date Alo Carey DO [address] [place] [address] [place] [phone] PCP - General Internal Medicine 08/31/20 07/03/23 documented as of this encounter
--- OUTSIDE RECORDS SUMMARY | 2023-10-06 00:43 | XMS_ITS | Encounter Summary ---
[place] [address] Care Team Providers Care Industrial Accountant Name Role Phone Alo Carey DO Primary Care Provider [phone] Encounter Details Date Type Department Care Team (Late st Contact Info) Description 01/25/2021 Orders Only Radiation Oncology at [address] [phone] Bigg Peters MD [address] [place] [address] [place] [address] Social History Tobacco Use Types Packs/Day Years Used Date Smoking Tobacco: Former Cigarettes Q uit: 1992 Smokeless Tobacco: Never Alcohol Use Standard [...] AM EDT Tech [place] [phone] Giacomo Queen 10/11/2023 11:15 AM EDT Office Visit [place] [phone] Basim Barr MD [facility] [place] [address] 10/18/2023 9:00 AM EDT Office Visit Hematology/Oncology at [address] [phone] Cl Hess MD [facility] [place] [address] Yessi Renee [address] [place] [address] 10/18/2023 9:30 AM EDT Infusion Hematology Oncology at [address] [phone] 10/24/2023 9:30 AM EDT Scheduled View Only Radiation Oncology at [address] [phone] Rad Nurse, [facility] 10/24/2023 10:00 AM EDT Office Visit Radiation Oncology at [address] [phone] Bigg Peters MD [address] [place] [address] DR RADIATION ONCOLOGY [place], [place] [id number] 11/01/2023 9:00 AM EDT Office Visit Hematology/Oncology at [address] [phone] Cl Hess MD [facility] [place] [address] Yessi Renee [address] HEMATOLOGY AND ONCOLOGY [place], [place] [address] 11/01/2023 9:30 AM EDT Infusion Hematology Oncology at [address] [phone] 12/24/2023 1:00 PM EDT TH Visit (TeleHealth) Radiation Oncology at [address] [phone] Ping Moore PA [facility] [place] [address] documented as of this encounter Visit Diagnoses Not on filedocumented in this encounter Care Teams Industrial Accountant Relationship Specialty Start Date End Date Alo Carey DO [address] [place] [address] [place] [address] PCP - General Internal Medicine 08/31/20 07/03/23 documented as of this encounter
--- OUTSIDE RECORDS SUMMARY | 2023-10-06 00:43 | XMS_ITS | Encounter Summary ---
Author Organization [facility] Address [facility] [place] [address] Care Team Providers Care Soaping Department Supervisor Name Role Phone YungAlo santiago Primary Care Provider [phone] Encounter Details Date Type Department Care Team (Late st Contact Info) Description 02/23/2021 [place] [address] Cayetano Engle MD [facility] [place] [address] Social History Tobacco Use Types Packs/Day Years [...] encounter Miscellaneous Notes * Telephone Encounter - Cayetano Engle MD - 02/23/2021 11:11 AM EST I was notified patient was seen with clot retention at [facility] yesterday. We are trying to arrange a void trial for him. I would be ok with him having a void trial prior to [place] as long as bleeding has stopped. He requested to speak with me... I have tried calling him twice today, with no answer and I cannot leave a message because his voicemail is full. Cayetano Engle MD 02/23/2021 11:13 AM documented in this encounter Plan of Treatment Upcoming Encounters Date Type Department Care Team (Late st Contact Info) Description 10/11/2023 10:00 AM EDT Tech [place] [address] Giacomo Queen 10/11/2023 11:15 AM EDT Office [place] [phone] Basim Barr MD [facility] [place] [address] 10/18/2023 9:00 AM EDT Office Visit Hematology/Oncology at [address] [phone] Cl Hess MD [facility] [place] [address] Yessi Renee APRN [address] [place] [address] DR HEMATOLOGY AND ONCOLOGY [place], [place] [id number] 10/18/2023 9:30 AM EDT Infusion Hematology Oncology at [address] [phone] 10/24/2023 9:30 AM EDT Scheduled View Only Radiation Oncology at [address] [phone] St [facility] Champagne 10/24/2023 10:00 AM EDT Office Visit Radiation Oncology at [address] [phone] Bigg Peters MD [address] [place] [address] DR RADIATION ONCOLOGY [place], [place] [id number] 11/01/2023 9:00 AM EDT Office Visit Hematology/Oncology at [address] [phone] Cl Hess MD [facility] [place] [address] Yessi Renee APRN [address] [place] [address] DR HEMATOLOGY AND ONCOLOGY [place], [place] [id number] 11/01/2023 9:30 AM EDT Infusion Hematology Oncology at [address] [phone] 12/24/2023 1:00 PM EDT TH Visit (TeleHealth) Radiation Oncology at [address] [phone] Ping Moore PA [facility] [place] [address] documented as of this encounter Visit Diagnoses Not on filedocumented in this encounter Care Teams Soaping Department Supervisor Relationship Specialty Start Date End Date Alo Carey DO [address] [place] [address] [place] [phone] PCP - General Internal Medicine 08/31/20 07/03/23 documented as of this encounter
--- OUTSIDE RECORDS SUMMARY | 2023-10-06 00:43 | XMS_ITS | Encounter Summary ---
Author Organization [facility] [place] [address] Care Team Providers Care Account Retention Representative Name Role Phone Alo Carey Primary Care Provider [phone] Encounter Details Date Type Department Care Team (Late st Contact Info) Description 02/23/2021 Telephone Urology at [facility] [address] [place] [phone] Tristen Novoa Social History Tobacco Use Types Packs/Day Years [...] encounter Miscellaneous Notes * Telephone Encounter - Tristen Novoa - 02/23/2021 8:09 AM EST Pt calls to leave a message for Dr. Engle. He had retention yesterday and ended up at the [facility] ER last evening and a urology resident from [facility] was contacted. A witt catheter was placed and he was advised that he would need to have that for 7-10 days. He begins by stating Dr. Engle told me that after surgery, about 3 weeks later, a small scab wouldbreak loose and I would pass a bit of blood and then all would be fine and that's contradicting what happened. He is not happy about having a catheter and even stated that he sees Dr. Myers up in [place] and was thinking of contacting him to have it removed today and see if he could urinate on his own and, if not, he could have it replaced. I told him I believe they want his bladder to rest for a few days before removing the catheter. I was sent a message to get the pt in here next week for a catheter removal but there is no urologyphysician here next week and so this can't be done here. The pt would like to speak with Dr. Engle today about the situation as, again, he is not very happyabout the catheter and feels that this is not what was supposed to happen after having his surgery. documented in this encounter Plan of Treatment Upcoming Encounters Date Type Department Care Team (Late st Contact Info) Description 10/11/2023 10:00 AM EDT Tech [place] [address] Giacomo Queen 10/11/2023 11:15 AM EDT Office [place] [address] Basim Barr MD [facility] [place] [address] 10/18/2023 9:00 AM EDT Office Visit Hematology/Oncology at [address] [phone] Cl Hess MD [facility] [place] [address] Yessi Renee APRN [address] [place] [address] DR HEMATOLOGY AND ONCOLOGY [place], [place] [id number] 10/18/2023 9:30 AM EDT Infusion Hematology Oncology at [address] [phone] 10/24/2023 9:30 AM EDT Scheduled View Only Radiation Oncology at [address] [phone] Jeronimo NurseSt Deutsch 10/24/2023 10:00 AM EDT Office Visit Radiation Oncology at [address] [phone] Bigg Peters MD [address] [place] [address] DR RADIATION ONCOLOGY [place], [place] [id number] 11/01/2023 9:00 AM EDT Office Visit Hematology/Oncology at [address] [phone] Cl Hess MD [facility] [place] [address] Yessi Renee APRN [address] [place] [address] DR HEMATOLOGY AND ONCOLOGY [place], [place] [id number] 11/01/2023 9:30 AM EDT Infusion Hematology Oncology at [address] [phone] 12/24/2023 1:00 PM EDT TH Visit (TeleHealth) Radiation Oncology at [address] [phone] Ping Moore PA [facility] [place] [address] documented as of this encounter Visit Diagnoses Not on filedocumented in this encounter Care Teams Account Retention Representative Relationship Specialty Start Date End Date Alo Carey DO [address] [place] [address] [place] [phone] PCP - General Internal Medicine 08/31/20 07/03/23 documented as of this encounter
--- OUTSIDE RECORDS SUMMARY | 2023-10-06 00:43 | XMS_ITS | Encounter Summary ---
Author Organization [facility] Address [facility] [place] [address] Care Team Providers Care Radio Sales Account Executive Name Role Phone Alo Carey DO Primary Care Provider [phone] Reason for Visit * Reason Onset Date Comments Other 01/25/2021 Encounter Details Date Type Department Care Team (Late st Contact Info) Description 01/25/2021 Telephone [place] [address] Ismael Wu MD [facility] [place] [address] Other Social History Tobacco Use Types Packs/Day Years Used Date Smoking Tobacco: Former Cigarettes Q uit: 1993 Smokeless Tobacco: Never Alcohol Use Standard Drinks/Week Comments Yes 5 (1 standard drink = 0.6 oz pur e alcohol) Sex and Gender Information Value Date Recorded Sex Assigned at Not on file Gender Identity Not on file Sexual Orientation Not on file documented as of this encounter Miscellaneous Notes * Telephone Encounter - Brenda Potts - 01/30/2021 9:25 AM EST Spoke to patient about holding off on scheduling surgery for the time being due to staffing issues.I let them know once we are ready to schedule we will be back in touch. If patient feels like they need to reach out to us they could call our direct line. Our numbers were given to patient. * Telephone Encounter - Radha Rivas - 01/25/2021 10:26 AM EST Patient called in looking to get R Hip JIMI done. He stats he is no longer having prostate surgery. And would like to get in as soon as possible. Please advise. documented in this encounter Plan of Treatment Upcoming Encounters Date Type Department Care Team (Late st Contact Info) Description 10/11/2023 10:00 AM EDT Tech [place] [phone] Giacomo Queen 10/11/2023 11:15 AM EDT Office Visit [place] [address] Basim Barr MD [facility] [place] [address] 10/18/2023 9:00 AM EDT Office Visit Hematology/Oncology at [address] [phone] Cl Hess MD [facility] [place] [address] Yessi Renee APRN [address] [place] [address] DR HEMATOLOGY AND ONCOLOGY [place], [place] [id number] 10/18/2023 9:30 AM EDT Infusion Hematology Oncology at [address] [phone] 10/24/2023 9:30 AM EDT Scheduled View Only Radiation Oncology at [address] [phone] St La N[facility] Champagne 10/24/2023 10:00 AM EDT Office Visit Radiation Oncology at [address] [phone] Bigg Peters MD [address] [place] [address] DR RADIATION ONCOLOGY [place], [place] [id number] 11/01/2023 9:00 AM EDT Office Visit Hematology/Oncology at [address] [phone] Cl Hess MD [facility] [place] [address] Yessi Renee APRN [address] [place] [address] DR HEMATOLOGY AND ONCOLOGY [place], [place] [id number] 11/01/2023 9:30 AM EDT Infusion Hematology Oncology at [address] [phone] 12/24/2023 1:00 PM EDT TH Visit (TeleHealth) Radiation Oncology at [address] [phone] Ping Moore PA [facility] DR [place] [address] documented as of this encounter Visit Diagnoses Not on filedocumented in this encounter Care Teams Radio Sales Account Executive Relationship Specialty Start Date End Date Alo Carey DO [address] [place] [address] [place] [phone] PCP - General Internal Medicine 08/31/20 07/03/23 documented as of this encounter
--- OUTSIDE RECORDS SUMMARY | 2023-10-06 00:43 | XMS_ITS | Encounter Summary ---
[place] [address] Care Team Providers Care Internal Combustion Engine Inspector Name Role Phone Alo Carey DO Primary Care Provider [phone] Encounter Details Date Type Department Care Team (Late st Contact Info) Description 01/25/2021 Orders Only Radiation Oncology at [address] [phone] Bigg Peters MD [address] [place] [address] [place] [address] Social History Tobacco Use Types [...] AM EDT Tech [place] [phone] Giacomo Queen 10/11/2023 11:15 AM EDT Office [place] [phone] Basim Barr MD [facility] [place] [address] 10/18/2023 9:00 AM EDT Office Visit Hematology/Oncology at [address] [phone] Cl Hess MD [facility] [place] [address] Yessi Renee [address] HEMATOLOGY [place] [address] 10/18/2023 9:30 AM EDT Infusion Hematology Oncology at [address] [phone] 10/24/2023 9:30 AM EDT Scheduled View Only Radiation Oncology at [address] [phone] Rad Nurse, [facility] 10/24/2023 10:00 AM EDT Office Visit Radiation Oncology at [address] [phone] Bigg Peters MD [address] [place] [address] DR RADIATION ONCOLOGY [place], [place] [address] 11/01/2023 9:00 AM EDT Office Visit Hematology/Oncology at [address] [phone] lC Hess MD [facility] [place] [place] [address] Yessi Renee [address] HEMATOLOGY AND [place]Y [place], [place] [address] 11/01/2023 9:30 AM EDT Infusion Hematology Oncology at [address] [phone] 12/24/2023 1:00 PM EDT TH Visit (TeleHealth) Radiation Oncology at [address] [phone] Ping Moore PA [facility] [place] [address] documented as of this encounter Visit Diagnoses Not on filedocumented in this encounter Care Teams Internal Combustion Engine Inspector Relationship Specialty Start Date End Date Alo Carey DO [address] [place] [address] [place] [address] PCP - General Internal Medicine 08/31/20 07/03/23 documented as of this encounter
--- OUTSIDE RECORDS SUMMARY | 2023-10-06 00:43 | XMS_ITS | Encounter Summary ---
[place] [address] Care Team Providers Care Sales Representative Wire Rope Name Role Phone Alo Carey Primary Care Provider [phone] Encounter Details Date Type Department Care Team (Late Contact Info) Description 04/28/2021 Telephone Primary Care at [facility] [address] [place] [phone] Jacquelyn Hines RN Social History Tobacco Use Types Packs/Day [...] encounter Miscellaneous Notes * Telephone Encounter - Jacquelyn Hines RN - 04/28/2021 9:45 AM EST Pt. Looking to get testing done at hospital closer to home for Covid PCR and sending to MD's referred to Doctor at [facility] for the numbers and orders needed to complete the task. documented in this encounter Plan of Treatment Upcoming Encounters Date Type Department Care Team (Late st Contact Info) Description 10/11/2023 10:00 AM EDT Tech Visit Vascular Lab [place] [address] Giacomo Queen 10/11/2023 11:15 AM EDT Office Visit [place] [address] Basim Barr MD [facility] [place] [address] 10/18/2023 9:00 AM EDT Office Visit Hematology/Oncology at [address] [phone] Cl Hess MD [facility] [place] [address] Yessi Renee [address] HEMATOLOGY AND ONCOLOGY [place], [place] [id number] 10/18/2023 9:30 AM EDT Infusion Hematology Oncology at [address] [phone] 10/24/2023 9:30 AM EDT Scheduled View Only Radiation Oncology at [address] [phone] [facility] Champagne 10/24/2023 10:00 AM EDT Office Visit Radiation Oncology at [address] [phone] 64 Bigg Peters MD [address] [place] [address] [place] [address] 11/01/2023 9:00 AM EDT Office Visit Hematology/Oncology at [address] [phone] 89 Cl Hess MD [facility] [place] [address] Yessi Renee [address] [place] [address] 11/01/2023 9:30 AM EDT Infusion Hematology Oncology at [address] [phone] 12/24/2023 1:00 PM EDT TH Visit (TeleHealth) Radiation Oncology at [address] [phone] Ping Moore PA [facility] DR [place] [address] documented as of this encounter Visit Diagnoses Not on filedocumented in this encounter Care Teams Sales Representative Wire Rope Relationship Specialty Start Date End Date Alo Carey DO [address] [place] [address] [place] [phone] PCP - General Internal Medicine 08/31/20 07/03/23 documented as of this encounter
--- OUTSIDE RECORDS SUMMARY | 2023-10-06 00:43 | XMS_ITS | Encounter Summary ---
[place] [address] Care Team Providers Care Manager Language Name Role Phone Alo Carey DO Primary Care Provider [phone] Reason for Visit * Reason Onset Date Comments Reminder Appointment 04/04/2021 Encounter Details Date Type Department Care Team (Late st Contact Info) Description 04/04/2021 Tele[place] [phone] Renetta Stallworth CCMA Reminder Appointment Social History Tobacco Use Types Packs/Day Years [...] encounter Miscellaneous Notes * Telephone Encounter - Renetta Stallworth CCMA - 04/04/2021 9:13 AM EST Called patient to review medications and allergies for their upcoming gastroenterology Type of Appointment: Telehealth appointment. Reach Patient during MA Check: Yes Notes for the provider: Notes for the nurse: documented in this encounter Plan of Treatment Upcoming Encounters Date Type Department Care Team (Late st Contact Info) Description 10/11/2023 10:00 AM EDT Tech Visit [place] [address] Giacomo Queen 10/11/2023 11:15 AM EDT Office [place] [address] Basim Barr MD [facility] [place] [address] 10/18/2023 9:00 AM EDT Office Visit Hematology/Oncology at [address] [phone] Cl Hess MD [facility] [place] [address] Yessi Renee APRN [address] [place] [address] DR HEMATOLOGY AND ONCOLOGY [place], [place] [id number] 10/18/2023 9:30 AM EDT Infusion Hematology Oncology at [address] [phone] 10/24/2023 9:30 AM EDT Scheduled View Only Radiation Oncology at [address] [phone] [facility] Champagne 10/24/2023 10:00 AM EDT Office Visit Radiation Oncology at [address] [phone] Bigg Peters MD [address] [place] [address] DR RADIATION ONCOLOGY [place], [place] [address] [phone] 11/01/2023 9:00 AM EDT Office Visit Hematology/Oncology at [address] [phone] 98 Cl Hess MD [facility] [place] [address] Yessi Renee APRN [address] [place] [address] DR HEMATOLOGY AND ONCOLOGY [place], [place] [id number] 11/01/2023 9:30 AM EDT Infusion Hematology Oncology at [address] [phone] 12/24/2023 1:00 PM EDT TH Visit (TeleHealth) Radiation Oncology at [address] [phone] Ping Moore PA [facility] DR HEMATOLOGY [place] [address] documented as of this encounter Visit Diagnoses Not on filedocumented in this encounter Care Teams Manager Language Relationship Specialty Start Date End Date Alo Carey DO [address] [place] [address] [place] [phone] PCP - General Internal Medicine 08/31/20 07/03/23 documented as of this encounter
--- OUTSIDE RECORDS SUMMARY | 2023-10-06 00:43 | XMS_ITS | Encounter Summary ---
Author Organization [facility] Address [facility] [place] [address] Care Team Providers Care Dye Tub Tender Name Role Phone Alo Carey DO Primary Care Provider [phone] Encounter Details Date Type Department Care Team (Late st Contact Info) Description 02/23/2021 Telephone [place] [phone] Renea Morton MD [facility] [place] [address] Social History Tobacco Use Types Packs/Day Years [...] encounter Miscellaneous Notes * Telephone Encounter - Renea Morton MD - 02/23/2021 2:47 PM EST Spoke to patient. He is in the ED again today for urine leaking around the witt and witt bag leaking. Advised urineleaking around the witt can be expected with bladder spasms and as long as there is urine in the witt tubing then he is draining adequately. Advised getting a new witt bag if the one he has is leaking. Discussed reasons for keeping witt catheter in place until next week. He understands and agrees. He will try to have TOV on Saturday with his local urologist. If he is unable to get TOV next week locally he will call our office to have TOV arranged with us. Renea Morton MD documented in this encounter Plan of Treatment Upcoming Encounters Date Type Department Care Team (Late st Contact Info) Description 10/11/2023 10:00 AM EDT Tech [place] [address] Giacomo Queen 10/11/2023 11:15 AM EDT Office [place] [phone] Basim Barr MD [facility] [place] [address] 10/18/2023 9:00 AM EDT Office Visit Hematology/Oncology at [address] [phone] Cl Hess MD [facility] [place] [address] Yessi Renee APRN [address] [place] [address] DR HEMATOLOGY AND ONCOLOGY [place], [place] [id number] 10/18/2023 9:30 AM EDT Infusion Hematology Oncology at [address] [phone] 10/24/2023 9:30 AM EDT Scheduled View Only Radiation Oncology at [address] [phone] St [facility] Champagne 10/24/2023 10:00 AM EDT Office Visit Radiation Oncology at [address] [phone] Bigg Peters MD [address] [place] [address] DR RADIATION ONCOLOGY [place], [place] [address] 11/01/2023 9:00 AM EDT Office Visit Hematology/Oncology at [address] [phone] Cl Hess MD [facility] [place] [address] Yessi Renee APRN [address] [place] [address] DR HEMATOLOGY AND ONCOLOGY [place], [place] [address] 11/01/2023 9:30 AM EDT Infusion Hematology Oncology at [address] [phone] 12/24/2023 1:00 PM EDT TH Visit (TeleHealth) Radiation Oncology at [address] [phone] Ping Moore PA [facility] [place] [address] documented as of this encounter Visit Diagnoses Not on filedocumented in this encounter Care Teams Dye Tub Tender Relationship Specialty Start Date End Date Alo Carey DO [address] [place] [address] [place] [phone] PCP - General Internal Medicine 08/31/20 07/03/23 documented as of this encounter
--- OUTSIDE RECORDS SUMMARY | 2023-10-06 00:43 | XMS_ITS | Encounter Summary ---
Author Organization [facility] [place] [address] Care Team Providers Care Motor Vehicle Light Assembler Name Role Phone Alo Carey DO Primary Care Provider [phone] Encounter Details Date Type Department Care Team (Late st Contact Info) Description 02/28/2021 Telephone [place] [address] Mary Anne Barron Social History Tobacco Use Types Packs/Day Years Used Date Smoking Tobacco: Never Assessed Sex and Gender Information Value Date Recorded Sex Assigned at Not on file Gender Identity Not on file Sexual Orientation Not on file documented as of this encounter Miscellaneous Notes * Telephone Encounter - Mary Anne Barron - 02/28/2021 9:53 AM EST [facility] called and wanted to confirm the pts name as she said the spelling we have is different from theres. I did confirm the pts & address before getting the records. I alsoput a perm note in his registration to confirm the spelling of his name when he comes to his appt. He does have records in his chart with two ways to spell his name. documented in this encounter Plan of Treatment Upcoming Encounters Date Type Department Care Team (Late st Contact Info) Description 10/11/2023 10:00 AM EDT Tech Visit [place] [address] Giacomo Queen 10/11/2023 11:15 AM EDT Office [place] [address] Basim Barr MD [facility] [place] [address] 10/18/2023 9:00 AM EDT Office Visit Hematology/Oncology at [address] [phone] Cl Hess MD [facility] [place] [address] Yessi Renee [address] HEMATOLOGY AND ONCOLOGY [place], [place] [phone] 10/18/2023 9:30 AM EDT Infusion Hematology Oncology at [address] [phone] 10/24/2023 9:30 AM EDT Scheduled View Only Radiation Oncology at [address] [phone] St La Nena Champagne 10/24/2023 10:00 AM EDT Office Visit Radiation Oncology at [address] [phone] 58 Bigg Peters MD [address] [place] [address] DR RADIATION ONCOLOGY [place], [place] [address] 11/01/2023 9:00 AM EDT Office Visit Hematology/Oncology at [address] [phone] Cl Hess MD [facility] [place] [address] Yessi Renee [address] [place] [address] 11/01/2023 9:30 AM EDT Infusion Hematology Oncology at [address] [phone] 12/24/2023 1:00 PM EDT TH Visit (TeleHealth) Radiation Oncology at [address] [phone] Ping Moore PA [facility] DR [place] [address] documented as of this encounter Visit Diagnoses Not on filedocumented in this encounter Care Teams Motor Vehicle Light Assembler Relationship Specialty Start Date End Date Alo Carey DO [address] [place] [address] [place] [address] PCP - General Internal Medicine 08/31/20 07/03/23 documented as of this encounter
--- OUTSIDE RECORDS SUMMARY | 2023-10-06 00:43 | XMS_ITS | Encounter Summary ---
[place] [address] Care Team Providers Care Distributor Sales Manager Name Role Phone Cherry Alo Lon RUTHERFORD Primary Care Provider [phone] Reason for Referral * Consultation (Routine) - Closed Specialty Diagnoses / Procedures Referred By Marques livingston Referred To Contact Radiation Oncology Diagnoses Malignant neoplasm of prostate Procedures Simulation for Radiation Therapy Planning Bigg Peters MD [address] [place] [address] [place] [address] [facility] [place] [address] Referral ID Status Reason Start Date Expiration Date V isits Requested Visits Authorized [id number] Closed Consult, Test & Treat 07/11/2021 09/30/2021 29 29 Encounter Details Date Type Department Care Team (Late st Contact Info) Description 04/04/2021 Orders Only Radiation Oncology at [address] [phone] Bigg Peters MD [address] [place] [address] [place] [address] Malignant neoplasm of prostate Social [...] AM EDT Tech [place] [address] Giacomo Queen 10/11/2023 11:15 AM EDT Office [place] [phone] Basim Barr MD [facility] [place] [address] 10/18/2023 9:00 AM EDT Office Visit Hematology/Oncology at [address] [phone] Cl Hess MD [facility] [place] [address] Yessi Renee APRN [address] [place] [address] DR HEMATOLOGY AND ONCOLOGY [place], [place] [id number] 10/18/2023 9:30 AM EDT Infusion Hematology Oncology at [address] [phone] 10/24/2023 9:30 AM EDT Scheduled View Only Radiation Oncology at [address] [phone] St La Nena Champagne 10/24/2023 10:00 AM EDT Office Visit Radiation Oncology at [address] [phone] Bigg Peters MD [address] [place] [address] DR RADIATION ONCOLOGY [place], [place] [id number] 11/01/2023 9:00 AM EDT Office Visit Hematology/Oncology at [address] [phone] Cl Hess MD [facility] [place] [address] Yessi Renee APRN [address] [place] [address] DR HEMATOLOGY AND ONCOLOGY [place], [place] [address] 11/01/2023 9:30 AM EDT Infusion Hematology Oncology at [address] [phone] 12/24/2023 1:00 PM EDT TH Visit (TeleHealth) Radiation Oncology at [address] [phone] Ping Moore PA [facility] DR HEMATOLOGY [place] [address] Scheduled Orders Name Type Priority Associated Diagnoses Orde r Schedule Simulation for Radiation Therapy Planning Procedures Routine Malignant neoplasm of prostate Ordered: 04/04/2021 documented as of this encounter Visit Diagnoses Diagnosis Malignant neoplasm of prostate documented in this encounter Care Teams Distributor Sales Manager Relationship Specialty Start Date End Date Alo Carey DO [address] [place] [address] [place] [address] PCP - General Internal Medicine 08/31/20 07/03/23 documented as of this encounter
--- OUTSIDE RECORDS SUMMARY | 2023-10-06 00:43 | XMS_ITS | Encounter Summary ---
Author Organization [facility] [place] [address] Care Team Providers Care Piper Helper Name Role Phone Alo Carey Primary Care Provider [phone] Encounter Details Date Type Department Care Team (Late st Contact Info) Description 03/31/2021 Telephone Radiation Oncology at [address] [phone] Juli Tripathi RN Social History [...] Telephone Encounter - Juli Tripathi RN - 03/31/2021 2:51 PM EST Radiation Oncology Nurse Telephone Note [facility], [place] ----- Message from Madalyn Stout sent at 03/31/2021 12:23 PM EST ----- Regarding: Meication GIven Elagard was given 22.5MGs Yesterday. Does Lorraine want urology to continue the injections or what is the plan for him. Margarita called to let us know today from [facility] about him getting the injection. But she want to know what our plan is for him going forward. Can we call with a plan [phone] and ask for Margarita. Thanks Tiana~ Call placed to the above number. It went to voice mail. As for answering her question, we have 3 months to figure that out and can get back to her, but fornow, Dr Myers can manage it for now. I left message with my name and contact information asking that they fax us the documentation showing the administration of this medication to our number: [phone]. Dr Peters informed of this via this note. documented in this encounter Plan of Treatment Upcoming Encounters Date Type Department Care Team (Late st Contact Info) Description 10/11/2023 10:00 AM EDT Tech Visit [place] [address] Giacomo Queen 10/11/2023 11:15 AM EDT Office [place] [address] Basim Barr MD [facility] [place] [address] 10/18/2023 9:00 AM EDT Office Visit Hematology/Oncology at [address] [phone] Cl Hess MD [facility] [place] [address] Yessi Renee, ARNOLD [address] [place] [address] DR HEMATOLOGY AND ONCOLOGY [place], [place] [phone] 10/18/2023 9:30 AM EDT Infusion Hematology Oncology at [address] [phone] 10/24/2023 9:30 AM EDT Scheduled View Only Radiation Oncology at [address] [phone] Jeronimo Nurse [place] 10/24/2023 10:00 AM EDT Office Visit Radiation Oncology at [address] [phone] Bigg Peters MD [address] [place] [address] DR RADIATION ONCOLOGY [place], [place] [address] 11/01/2023 9:00 AM EDT Office Visit Hematology/Oncology at [address] [phone] Cl Hess MD [facility] [place] [address] Yessi Renee APRN [address] [place] [address] DR HEMATOLOGY AND ONCOLOGY [place], [place] [id number] 11/01/2023 9:30 AM EDT Infusion Hematology Oncology at [address] [phone] 12/24/2023 1:00 PM EDT TH Visit (TeleHealth) Radiation Oncology at [address] [phone] Ping Moore PA [facility] DR [place] [address] documented as of this encounter Visit Diagnoses Not on filedocumented in this encounter Care Teams Piper Helper Relationship Specialty Start Date End Date Alo Carey DO [address] [place] [address] [place] [address] PCP - General Internal Medicine 08/31/20 07/03/23 documented as of this encounter
--- OUTSIDE RECORDS SUMMARY | 2023-10-06 00:43 | XMS_ITS | Encounter Summary ---
[place] [address] Care Team Providers Care Can Technician Name Role Phone Alo Carey Primary Care Provider [phone] Encounter Details Date Type Department Care Team (Late st Contact Info) Description 03/02/2021 [place] [address] Mila Sheffield LNA Social History Tobacco Use Types Packs/Day Years [...] encounter Miscellaneous Notes * Telephone Encounter - Mila Sheffield LNA - 03/02/2021 2:13 PM EST Tried to call patient to see where a urine sample was submitted as I do not have one on file. Unable to leave a voicemail. documented in this encounter Plan of Treatment Upcoming Encounters Date Type Department Care Team (Late st Contact Info) Description 10/11/2023 10:00 AM EDT Tech [place] [address] Giacomo Queen 10/11/2023 11:15 AM EDT Office [place] [address] Basim Barr MD [facility] [place] [address] 10/18/2023 9:00 AM EDT Office Visit Hematology/Oncology at [address] [phone] Cl Hess MD [facility] [place] [address] Yessi Renee [address] HEMATOLOGY AND ONCOLOGY [place], [place] [id number] 10/18/2023 9:30 AM EDT Infusion Hematology Oncology at [address] [phone] 10/24/2023 9:30 AM EDT Scheduled View Only Radiation Oncology at [address] [phone] Jeronimo Bowen [place] 10/24/2023 10:00 AM EDT Office Visit Radiation Oncology at [address] [phone] 25 Bigg Peters MD [address] [place] [address] DR RADIATION ONCOLOGY [place], [place] [address] 11/01/2023 9:00 AM EDT Office Visit Hematology/Oncology at [address] [phone] Cl Hess MD [facility] [place] [address] Yessi Renee [address] HEMATOLOGY AND ONCOLOGY [place], [place] [id number] 11/01/2023 9:30 AM EDT Infusion Hematology Oncology at [address] [phone] 12/24/2023 1:00 PM EDT TH Visit (TeleHealth) Radiation Oncology at [address] [phone] Ping Moore PA [facility] HEMATOLOGY [place] [address] documented as of this encounter Visit Diagnoses Not on filedocumented in this encounter Care Teams Can Technician Relationship Specialty Start Date End Date Alo Carey DO [address] [place] [address] [place] [address] PCP - General Internal Medicine 08/31/20 07/03/23 documented as of this encounter
--- OUTSIDE RECORDS SUMMARY | 2023-10-06 00:43 | XMS_ITS | Encounter Summary ---
[place] [address] Care Team Providers Care Raw Material Handler Name Role Phone Alo Carey DO Primary Care Provider [phone] Reason for Visit * Reason Comments Injections Lupron * Treatment/Therapy Plan Authorization (Routine) - Pending Review Specialty Diagnoses / Procedures Referred By Marques livingston Referred To Contact Diagnoses Malignant neoplasm of prostate Bigg Peters MD [address] [place] [address] [place] [address] Referral ID Status Reason Start Date Expiration Date V isits Requested Visits Authorized [id number] Pending Review 01/25/2021 01/25/2022 99 99 Encounter Details Date Type Department Care Team (Late st Contact Info) Description 01/31/2021 2:30 PM EST Infusion Hematology Oncology at [address] [phone] Malignant neoplasm of prostate Social [...] Sign Reading Time Taken Comments Blood Pressure 146/66 01/31/2021 9:52 AM EST Pulse 63 01/31/2021 9:52 AM EST Temperature 36.8 ??C (98.2 ??F) 01/31/2021 9:52 AM ES T Respiratory Rate 20 01/31/2021 9:52 AM EST Oxygen Saturation 98% 01/31/2021 9:52 AM EST Inhaled Oxygen Concentration - - Weight 111.8 kg (246 lb 6.4 oz) 01/31/2021 9:52 AM EST Height 180.3 cm (5' 10.98) 01/31/2021 9:[address] Body Mass Index 34.38 01/31/2021 9:52 AM EST documented in this encounter Progress Notes * Jey Crouch RN - 01/31/2021 2:30 PM EST Infusion Note Diagnosis:Prostate Cancer Treatment: Lupron Injection Lupron 7.5 mg injected IM in right buttocks. Patient instructed on side effects of Lupron. Patient states understanding of teaching and patient aware to call clinic with any questions or concerns. Plan: Return to clinic as scheduled. documented in this encounter Plan of Treatment Upcoming Encounters Date Type Department Care Team (Late st Contact Info) Description 10/11/2023 10:00 AM EDT Tech [place] [address] Giacomo Queen 10/11/2023 11:15 AM EDT Office [place] [address] Basim Barr MD [facility] [place] [address] 10/18/2023 9:00 AM EDT Office Visit Hematology/Oncology at [address] [phone] Cl Hess MD [facility] [place] [address] Yessi Renee APRN [address] [place] [address] DR [place] [address] 10/18/2023 9:30 AM EDT Infusion Hematology Oncology at [address] [phone] 10/24/2023 9:30 AM EDT Scheduled View Only Radiation Oncology at [address] [phone] Rad NurseSt Deutsch 10/24/2023 10:00 AM EDT Office Visit Radiation Oncology at [address] [phone] Bigg Peters MD [address] [place] [address] DR RADIATION ONCOLOGY [place], [place] [address] 11/01/2023 9:00 AM EDT Office Visit Hematology/Oncology at [address] [phone] Cl Hess MD [facility] [place] [address] [address] HEMATOLOGY AND ONCOLOGY [place], [place] [address] 11/01/2023 9:30 AM EDT Infusion Hematology Oncology at [address] [phone] 12/24/2023 1:00 PM EDT TH Visit (TeleHealth) Radiation Oncology at [address] [phone] Ping Moore PA [facility] [place]EMATOLOG[place] [address] documented as of this encounter Visit Diagnoses Diagnosis Malignant neoplasm of prostate documented in this encounter Administered Medications Inactive Administered Medications - up to 3 most recent administrations Medication Order MAR Action Action Date Dose Rate Site leuprolide (Lupron Depot) injection 7.5 mg 7.5 mg, Intramuscular, ONCE, 1 dose, On Sat01/31/21 at 1015, Routine, This agent is restricted to outpatient use. Is this drug being given as an outpatient? Yes Given 01/31/2021 10:03 AM EST 7.5 mg Right Gluteal documented in this encounter Care Teams Raw Material Handler Relationship Specialty Start Date End Date Alo Carey DO [address] [place] [address] [place] [address] PCP - General Internal Medicine 08/31/20 07/03/23 documented as of this encounter
--- OUTSIDE RECORDS SUMMARY | 2023-10-06 00:43 | XMS_ITS | Encounter Summary ---
Author Organization [facility] [place] [address] Care Team Providers Care Basting Cleaner Name Role Phone Alo Carey DO Primary Care Provider [phone] Reason for Visit * Reason Onset Date Comments Other 04/24/2021 Lab orders Encounter Details Date Type Department Care Team (Late st Contact Info) Description 04/24/2021 [place] [address] Kushal Aceves MD [facility] [place] [address] Other (Lab orders/) Social History Tobacco Use Types Packs/Day Years [...] encounter Miscellaneous Notes * Telephone Encounter - Connie Goodwin RN - 04/24/2021 12:32 PM EST Creatinine order pended to Dr. Aceves for signature/ approval. * Telephone Encounter - Matti Slater - 04/24/2021 11:44 AM EST Call Center / [facility]olphin [facility] Message - Lab/Test being requested to be done Provider patient sees in Clinic: Kushal Aceves MD Caller: [facility] Radiology If not Pt / Relation to pt: Call back Number: [phone] OK to leave message: Yes Reason for call: request for lab or test orders ??? What labs or tests are being requested: Creatinine labs prior to MRI scheduled for 05/02/21 ??? Where does the caller request the order be sent: [facility] ORDERS IN THE CHART: No Send request to the nurse Any additional information for the nurse/provider: Disposition of call ( choose one and remove the other) ??? Message sent to clinic nurse documented in this encounter Plan of Treatment Upcoming Encounters Date Type Department Care Team (Late st Contact Info) Description 10/11/2023 10:00 AM EDT Tech [place] [address] Giacomo Queen 10/11/2023 11:15 AM EDT Office [place] [address] Basim Barr MD [facility] [place] [address] 10/18/2023 9:00 AM EDT Office Visit Hematology/Oncology at [address] [phone] Cl Hess MD [facility] [place] [place] [address] Yessi Renee APRN [address] [place] [address] DR HEMATOLOGY AND ONCOLOGY [place], [place] [address] 10/18/2023 9:30 AM EDT Infusion Hematology Oncology at [address] [phone] 10/24/2023 9:30 AM EDT Scheduled View Only Radiation Oncology at [address] [phone] Jeronimo Bowen [place] 10/24/2023 10:00 AM EDT Office Visit Radiation Oncology at [address] [phone] Bigg Peters MD [address] [place] [address] DR RADIATION ONCOLOGY [place], [place] [address] 11/01/2023 9:00 AM EDT Office Visit Hematology/Oncology at [address] [phone] Cl Hess MD [facility] [place] [address] Yessi Renee APRN [address] [place] [address] DR HEMATOLOGY AND ONCOLOGY [place], [place] [address] 11/01/2023 9:30 AM EDT Infusion Hematology Oncology at [address] [phone] 12/24/2023 1:00 PM EDT TH Visit (TeleHealth) Radiation Oncology at [address] [phone] Ping Moore PA [facility] HEMATOLOGY [place] [address] documented as of this encounter Visit Diagnoses Diagnosis Stenosis of right carotid artery Occlusion and stenosis of carotid artery without mention of cerebral infarction documented in this encounter Care Teams Basting Cleaner Relationship Specialty Start Date End Date Alo Carey DO [address] [place] [address] [place] [address] PCP - General Internal Medicine 08/31/20 07/03/23 documented as of this encounter
--- OUTSIDE RECORDS SUMMARY | 2023-10-06 00:43 | XMS_ITS | Encounter Summary ---
Author Organization [facility] [place] [address] Care Team Providers Care Rib Bender Name Role Phone YungAlo santiago Primary Care Provider [phone] Encounter Details Date Type Department Care Team (Late st Contact Info) Description 01/25/2021 [place] [address] Cayetano Engle MD [facility] [place] [address] Social History Tobacco Use Types Packs/Day Years [...] encounter Miscellaneous Notes * Telephone Encounter - Sarai Mayorga - 01/25/2021 10:12 AM EST Pt wants to know if he can schedule his hip replacement after his prostate surgery when he is on the hormone for three months. documented in this encounter Plan of Treatment Upcoming Encounters Date Type Department Care Team (Late st Contact Info) Description 10/11/2023 10:00 AM EDT Tech Visit [place] [address] Giacomo Queen 10/11/2023 11:15 AM EDT Office [place] [address] Basim Barr MD [facility] [place] [address] 10/18/2023 9:00 AM EDT Office Visit Hematology/Oncology at [address] [phone] Cl Hess MD [facility] [place] [address] Yessi Renee [address] HEMATOLOGY AND ON[place]OGY [place], [place] [phone] 10/18/2023 9:30 AM EDT Infusion Hematology Oncology at [address] [phone] 10/24/2023 9:30 AM EDT Scheduled View Only Radiation Oncology at [address] [phone] St La [place]ena Champagne 10/24/2023 10:00 AM EDT Office Visit Radiation Oncology at [address] [phone] 15 Bigg Peters MD [address] [place] [address] [place] [address] 11/01/2023 9:00 AM EDT Office Visit Hematology/Oncology at [address] [phone] 44 Cl Hess MD [facility] [place] [address] Yessi Renee [address] HEMATOLOGY [place] [address] 11/01/2023 9:30 AM EDT Infusion Hematology Oncology at [address] [phone] 12/24/2023 1:00 PM EDT TH Visit (TeleHealth) Radiation Oncology at [address] [phone] Ping Moore PA [facility] [place] [address] documented as of this encounter Visit Diagnoses Not on filedocumented in this encounter Care Teams Rib Bender Relationship Specialty Start Date End Date Alo Carey DO [address] [place] [address] [place] [address] PCP - General Internal Medicine 08/31/20 07/03/23 documented as of this encounter
--- OUTSIDE RECORDS SUMMARY | 2023-10-06 00:43 | XMS_ITS | Encounter Summary ---
Author Organization Formerly [facility] [place] [address] Care Team Providers Care Casing Cooker Name Role Phone Alo Carey Primary Care Provider [phone] Encounter Details Date Type Department Care Team (Late st Contact Info) Description 02/22/2021 Telephone [place] [address] Cayetano Engle MD [facility] [place] [address] Social History Tobacco Use Types Packs/Day Years [...] * Telephone Encounter - Sarai Mayorga - 02/22/2021 9:13 AM EST S/P surgery 02/[address] Engle. Patient woke up this morning and had a lot of blood while ujrinating. Paged a resident. documented in this encounter Plan of Treatment Upcoming Encounters Date Type Department Care Team (Late st Contact Info) Description 10/11/2023 10:00 AM EDT Tech [place] [address] Giacomo Queen 10/11/2023 11:15 AM EDT Office Visit [place] [address] Basim Barr MD [facility] [place] [address] 10/18/2023 9:00 AM EDT Office Visit Hematology/Oncology at [address] [phone] Cl Hess MD [facility] [address] Yessi Renee APRN [address] [place] [address] DR HEMATOLOGY AND ONCOLOGY [place], [place] [phone] 10/18/2023 9:30 AM EDT Infusion Hematology Oncology at [address] [phone] 10/24/2023 9:30 AM EDT Scheduled View Only Radiation Oncology at [address] [phone] [place]agne 10/24/2023 10:00 AM EDT Office Visit Radiation Oncology at [address] [phone] 67 Bigg Peters MD [address] [place] [address] DR RADIATION ONCOLOGY [place], [place] [address]84[address] [phone] 11/01/2023 9:00 AM EDT Office Visit Hematology/Oncology at [address] [phone] Cl Hess MD [facility] [place] [address] Yessi Renee APRN [address] [place] [address] DR HEMATOLOGY AND ONCOLOGY [place], [place] [phone] 11/01/2023 9:30 AM EDT Infusion Hematology Oncology at [address] [phone] 12/24/2023 1:00 PM EDT TH Visit (TeleHealth) Radiation Oncology at [address] [phone] Ping Moore PA [facility] DR HEMATOLOGY [place] [address] documented as of this encounter Visit Diagnoses Not on filedocumented in this encounter Care Teams Casing Cooker Relationship Specialty Start Date End Date Alo Carey DO [address] [place] [address] [place] [phone] PCP - General Internal Medicine 08/31/20 07/03/23 documented as of this encounter
--- OUTSIDE RECORDS SUMMARY | 2023-10-06 00:43 | XMS_ITS | Encounter Summary ---
Author Organization [facility] Address [facility] [place] [address] Care Team Providers Care Cognos Analyst Name Role Phone YungAlo santiago Primary Care Provider [phone] Reason for Visit * Consultation (YASSINE) - Closed Specialty Diagnoses / Procedures Referred By Marques livingston Referred To Contact Urology Diagnoses Malignant neoplasm of prostate Dr. Myers has requested simultaneous appointments with Dr. Engle and Dr. Naylor -- retention, high risk prostate ca Rock Myers MD [address] [place] [address] Spenser Naylor MD [facility] [place] [address] Referral ID Status Reason Start Date Expiration Date V isits Requested Visits Authorized [id number] Closed Consult, Test & Treat 11/25/2020 11/25/2021 6 6 Encounter Details Date Type Department Care Team (Late st Contact Info) Description 01/24/2021 8:40 AM EST TH Visit (TeleHealth) [place] [address] Spenser Naylor MD [facility] [place] [address] Malignant neoplasm of prostate Social History Tobacco [...] as of this encounter Progress Notes * Spenser Naylor MD - 01/24/2021 8:40 AM EST Images from the original note were not included. Outpatient Consultation Wero Sadler is a 70 y.o. gentleman referred for evaluation of 1) Unfavorable intermediate risk prostate cancer He has a history of CAD / PVD and is s/p CEA and CABG in 2018 on ASA / Plavix. He also has history of diabetes and stigmata of end-stage microvascular disease. He also had a recent episode of acute urinary retention after hip replacement in October. He did well after catheter removal on Flomax but when he stopped Flomax his PVR increased to 400 cc and back down when he restarted He is currently on Flomax 0.8 mg/day with relatively stable symptoms PSA History: 03/2020 - 15.4 05/2020 - 18.5 10/2020 - .6 ? Pathology Results / Location: 07/06/2020 - Dr Mayo ([place], [place] - [facility]) Gl 3+3 in 2 of 12 cores @ right apex (in [place], prior to moving to [place]) ? Pertinent Imaging Studies Independently reviewed: mpMRI 11/17/20 - 50cc gland PIRADS 5 lesion Ant Right Mid TZ and AFMS PIRADS 4 lesion Post Left Mid PZ ?? CT and bone scan were negative for metastatic disease Past Medical History: Diagnosis Date ??? 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 can not read. can see shadows. No vision in left eye since child saavedra accident. ??? Claudication ??? Colon adenocarcinoma 2008 recieved chemo in [place] ??? Coronary artery dissection ??? CPAP (continuous positive airway pressure) dependence CPAP ??? Diabetes treated with medication ??? Obstructive sleep apnea ??? Stroke 11-24-19 Past Surgical History: Procedure Laterality Date ??? CARDIAC SURGERY 12/03/2018 triple bypass ??? CAROTID ENDARTERECTOMY ??? CAROTID-SUBCLAVIAN BYPASS GRAFT Bilateral 2017, 2018 ??? FEMORAL-TIBIAL BYPASS GRAFT Left 12/2017 ??? JOINT REPLACEMENT ??? PRO TOTAL HIP ARTHROPLASTY Left 10/10/2020 TOTAL HIP ARTHROPLASTY - POSTERIOR (WRVU 20.72) performed by Ismael Wu MD at [facility] OR Impression: Unfavorable intermediate versus high risk prostate cancer Significant medical comorbidity History of acute urinary retention and elevated postvoid residuals managed currently on Flomax Recommendations: I recommend outlet surgery TURP versus PVP followed by external beam radiation with androgen deprivation Considering he would need to hold his Plavix for some time to safely perform a prostate biopsy I would favor not performing a prostate biopsy and assuming he has high risk disease given his MRI findings and PSA greater than 20 treated with a long course of androgen deprivation. I explained to the patient that given his MRI findings and PSA I suspect that his biopsy missed themajority of the tumor and he at a minimum has [place] 7 disease. With a PSA greater than 20 and [place] 7 disease that puts him in a high risk category and therefore I think he would warrant a long course of androgen deprivation. I do not think that the benefits of biopsy to confirm this outweigh the risks associated with it given his significant medical comorbidity and risk with holding anticoagulation or possibly risk of bleeding once restarting his anticoagulation and therefore to me would make the most sense to proceed under the assumption he has high risk prostate cancer. We discussed options of surgery, radical prostatectomy, versus radiation with or without outlet surgery. My preference given his medical problems would be for a minimally invasive outlet surgery followed by definitive external beam radiation with a long course and or deprivation. I explained that he has a very high risk surgical candidate for radical prostatectomy and given his high risk disease and there is a significant probability he will require radiation and hormones after surgery anyway and therefore proceeding directly with radiation hormones seems like would make the most sense from my perspective. I explained my rationale in great detail. I reviewed the MRI in detail with the patient explaining my findings and concerns for micro extraprostatic extension and under staging from hisinitial biopsy given the anterior transitional zone location of the tumor on MRI. In the end the patient understand my recommendation and is eager to proceed with surgery with Dr. Engle followed by radiation with Dr. Peters ?? documented in this encounter Plan of Treatment Upcoming Encounters Date Type Department Care Team (Late st Contact Info) Description 10/11/2023 10:00 AM EDT Tech Visit [place] [address] Giacomo Queen 10/11/2023 11:15 AM EDT Office Visit [place] [phone] Basim Barr MD [facility] [place] [address] 10/18/2023 9:00 AM EDT Office Visit Hematology/Oncology at [address] [phone] Cl Hess MD [facility] [place] [address] Yessi Renee APRN [address] [place] [address] DR HEMATOLOGY AND ONCOLOGY [place], [place] [phone] 10/18/2023 9:30 AM EDT Infusion Hematology Oncology at [address] [phone] 10/24/2023 9:30 AM EDT Scheduled View Only Radiation Oncology at [address] [phone] St [place] [facility] 10/24/2023 10:00 AM EDT Office Visit Radiation Oncology at [address] [phone] Bigg Peters MD [address] [place] [address] DR RADIATION ONCOLOGY [place], [place] [phone] 11/01/2023 9:00 AM EDT Office Visit Hematology/Oncology at [address] [phone] Cl Hess MD [facility] [place] [address] Yessi Renee APRN [address] [place] [address] DR HEMATOLOGY AND ONCOLOGY [place], [place] [address] 11/01/2023 9:30 AM EDT Infusion Hematology Oncology at [address] [phone] 12/24/2023 1:00 PM EDT TH Visit (TeleHealth) Radiation Oncology at [address] [phone] Ping Moore PA [facility] DR [place] [address] documented as of this encounter Visit Diagnoses Diagnosis Malignant neoplasm of prostate documented in this encounter Care Teams Cognos Analyst Relationship Specialty Start Date End Date Alo Carey DO [address] [place] [address] [place] [phone] PCP - General Internal Medicine 08/31/20 07/03/23 documented as of this encounter
--- OUTSIDE RECORDS SUMMARY | 2023-10-06 00:43 | XMS_ITS | Encounter Summary ---
Author Organization [facility] [place] [address] Care Team Providers Care Costume Maker Name Role Phone Alo Carey Primary Care Provider [phone] Encounter Details Date Type Department Care Team (Late Contact Info) Description 01/24/2021 Telephone Main OR at [address] [phone] Patricia Zayas Social History Tobacco Use Types Packs/Day Years [...] AM EDT Tech Visit [place] [phone] Giacomo Queen 10/11/2023 11:15 AM EDT Office [place] [phone] Basim Barr MD [facility] [place] [address] 10/18/2023 9:00 AM EDT Office Visit Hematology/Oncology at [address] [phone] Cl Hess MD [facility] [place] [address] Yessi Renee, [address] HEMATOLOGY AND ONCOLOGY [place], [place] [phone] 10/18/2023 9:30 AM EDT Infusion Hematology Oncology at [address] [phone] 10/24/2023 9:30 AM EDT Scheduled View Only Radiation Oncology at [address] [phone] Jeronimo Bowen, [place] 10/24/2023 10:00 AM EDT Office Visit Radiation Oncology at [address] [phone] Bigg Peters MD [address] [place] [address] DR RADIATION ONCOLOGY [place], [place] [address] [phone] 11/01/2023 9:00 AM EDT Office Visit Hematology/Oncology at [address] [phone] Cl Hess MD [facility] [place] [address] Yessi Renee, [address] HEMATOLOGY AND ONCOLOGY [place], [place] [address] 11/01/2023 9:30 AM EDT Infusion Hematology Oncology at [address] [phone] 12/24/2023 1:00 PM EDT TH Visit (TeleHealth) Radiation Oncology at [address] [phone] Ping Moore PA [facility] DR [place] [address] documented as of this encounter Visit Diagnoses Not on filedocumented in this encounter Care Teams Costume Maker Relationship Specialty Start Date End Date Alo Carey DO [address] [place] [address] [place] [phone] PCP - General Internal Medicine 08/31/20 07/03/23 documented as of this encounter
--- OUTSIDE RECORDS SUMMARY | 2023-10-06 00:43 | XMS_ITS | Encounter Summary ---
Author Organization [facility] [place] [address] Care Team Providers Care Satellite Dish Technician Name Role Phone Alo Carey DO Primary Care Provider [phone] Encounter Details Date Type Department Care Team (Late st Contact Info) Description 05/02/2021 7:40 PM EST Ancillary Procedure [place] [phone] Kushal Aceves MD [facility] [place] [address] Social History Tobacco Use Types Packs/Day Years [...] AM EDT Tech [place] [phone] Giacomo Queen 10/11/2023 11:15 AM EDT Office Visit [place] [phone] Basim Barr MD [facility] [place] [address] 10/18/2023 9:00 AM EDT Office Visit Hematology/Oncology at [address] [phone] Cl Hess MD [facility] [place] [address] Yessi Renee [address] HEMATOLOGY AND ONCOLOGY [place], [place] [address] [phone] 10/18/2023 9:30 AM EDT Infusion Hematology Oncology at [address] [phone] 10/24/2023 9:30 AM EDT Scheduled View Only Radiation Oncology at [address] [phone] Rad Nurse, [facility] 10/24/2023 10:00 AM EDT Office Visit Radiation Oncology at [address] [phone] Bigg Peters MD [address] [place] [address] DR RADIATION ONCOLOGY [place], [place] 867961 [phone] 11/01/2023 9:00 AM EDT Office Visit Hematology/Oncology at [address] [phone] Cl Hess MD [facility] [place] [address] Yessi Renee [address] HEMATOLOGY AND ONCOLOGY [place], [place] [address]37 [phone] 11/01/2023 9:30 AM EDT Infusion Hematology Oncology at [address] [phone] 12/24/2023 1:00 PM EDT TH Visit (TeleHealth) Radiation Oncology at [address] [phone] Ping Moore PA [facility] DR [place] [address] documented as of this encounter Procedures Procedure Name Priority Date/Time Associated Diagnosis Comments FILM LIBRARY STORAGE ONLY CT HEAD AND SPINE Routine 05/02/2021 7:36 PM EST documented in this encounter Results * Film Library- Storage Only CT Head And Spine (05/02/2021 7:36 PM EST) Narrative [facility] - 05/02/2021 7:36 PM EST This exam is auto-finalizing. It's purpose is for storage only. Kushal Aceves MD IMG FILM LIBRARY O RDERABLES Performing Organization Address City/State/[facility] Co de Phone Number [place], [place] documented in this encounter Visit Diagnoses Not on filedocumented in this encounter Care Teams Satellite Dish Technician Relationship Specialty Start Date End Date Alo Carey DO [address] [place] [address] [place] [address] PCP - General Internal Medicine 08/31/20 07/03/23 documented as of this encounter
--- OUTSIDE RECORDS SUMMARY | 2023-10-06 00:43 | XMS_ITS | Encounter Summary ---
Author Organization [facility] [place] [address] Care Team Providers Care Precision Honer Name Role Phone Alo Carey DO Primary Care Provider [phone] Reason for Visit * Reason Onset Date Comments Request For Record 03/09/2021 Encounter Details Date Type Department Care Team (Late Contact Info) Description 03/09/2021 [place] [address] Kushal Aceves MD [facility] [place] [address] Request For Record Social History Tobacco Use Types Packs/Day Years [...] * Telephone Encounter - Bela Fraser - 03/10/2021 10:38 AM EST Patient states that he will contact [facility] and request that they send us his imaging for his upcoming appointment. documented in this encounter Plan of Treatment Upcoming Encounters Date Type Department Care Team (Late Contact Info) Description 10/11/2023 10:00 AM EDT Tech Visit [place] [address] Giacomo Queen 10/11/2023 11:15 AM EDT Office [place] [address] Basim Barr MD [facility] [place] [address] 10/18/2023 9:00 AM EDT Office Visit Hematology/Oncology at [address] [phone] Cl Hess MD [facility] [place] [address] Yessi Renee APRN [address] [place] [address] DR HEMATOLOGY AND ONCOLOGY [place], [place] [phone] 10/18/2023 9:30 AM EDT Infusion Hematology Oncology at [address] [phone] 10/24/2023 9:30 AM EDT Scheduled View Only Radiation Oncology at [address] [phone] St [place] Champagne 10/24/2023 10:00 AM EDT Office Visit Radiation Oncology at [address] [phone] Bigg Peters MD [address] [place] [address] DR RADIATION ONCOLOGY [place], [place] [phone] 11/01/2023 9:00 AM EDT Office Visit Hematology/Oncology at [address] [phone] Cl Hess MD [facility] [place] [address] Yessi Renee APRN [address] [place] [address] DR HEMATOLOGY AND ONCOLOGY [place], [place] 781339 11/01/2023 9:30 AM EDT Infusion Hematology Oncology at [address] [phone] 12/24/2023 1:00 PM EDT TH Visit (TeleHealth) Radiation Oncology at [address] [phone] Ping Moore PA [facility] DR [place] [address] documented as of this encounter Visit Diagnoses Not on filedocumented in this encounter Care Teams Precision Honer Relationship Specialty Start Date End Date Alo Carey DO [address] [place] [address] [place] [phone] PCP - General Internal Medicine 08/31/20 07/03/23 documented as of this encounter
--- OUTSIDE RECORDS SUMMARY | 2023-10-06 00:43 | XMS_ITS | Encounter Summary ---
Author Organization [facility] [place] [address] Care Team Providers Care Chief Executive Name Role Phone Alo Carey Primary Care Provider [phone] Encounter Details Date Type Department Care Team (Late st Contact Info) Description 04/26/2021 2:30 PM EST Office Visit Radiation Oncology at [address] [phone] Bigg Peters MD [address] [place] [address] [place] [address] Malignant neoplasm of prostate Social [...] Sign Reading Time Taken Comments Blood Pressure 131/49 04/26/2021 2:51 PM EST Pulse - - Temperature 36.7 ??C (98.1 ??F) 04/26/2021 2:51 PM ES T Respiratory Rate 18 04/26/2021 2:51 PM EST Oxygen Saturation 97% 04/26/2021 2:51 PM EST Inhaled Oxygen Concentration - - Weight 111.5 kg (245 lb 12.8 oz) 04/26/2021 2:51 PM EST Height - - Body Mass Index 34.28 03/15/2021 10:41 AM EST documented in this encounter Progress Notes * Bigg Peters MD - 04/26/2021 2:30 PM EST Radiation Oncology Established Patient Followup Note Bigg Peters MD, MS [facility] Patient Identification: Wero Sadler is a 71 y.o. year old male with high risk prostate cancer. For details regarding initial presentation please refer to my consultation note dated 01/20/21. INTERVAL HISTORY I am seeing him today to review his interval medical history, the treatment plan for his prostate cancer, the logistics of external beam radiotherapy (including fiducial marker placement, spaceOAR gel implantation, planning MRI, CT simulation and treatment itself), possible acute toxicities and/or late complications. Since last seen, he has continued with Lupron via Dr Myers's office however we recently learned that their office will no longer be providing these injections. Wero last received a 22.5mg Eligard injection 03/30/21 is therefore next due for an injection on or after 06/23/21. He otherwise reports no change in his overall medical condition and is here today to provide informed consent. ASSESSMENT / PLAN Logistics, toxicities and complications of pelvic / prostatic radiation were reviewed with the patient today. Afterwards, informed consent for fiducial marker, spaceOAR placement, CT simulation and external beam radiotherapy was obtained. Nursing staff will provide additional teaching with regard to pre and post procedure medications. Time Attestation: I certify spending at least 40 minutes in providing care to this patient today, 04/26/21 as reflected by the following activities: - review of his medical record in the chart - discussion of the above with the patient as part of shared medical decision making - documenting the outcome of today's visit as above documented in this encounter Plan of Treatment Upcoming Encounters Date Type Department Care Team (Late st Contact Info) Description 10/11/2023 10:00 AM EDT Tech [place] [phone] Giacomo Queen 10/11/2023 11:15 AM EDT Office [place] [address] Basim Barr MD [facility] [place] [address] 10/18/2023 9:00 AM EDT Office Visit Hematology/Oncology at [address] [phone] Cl Hess MD [facility] [place] [address] Yessi Renee [address] HEMATOLOGY AND ONCOLOGY [place], [place] [phone] 10/18/2023 9:30 AM EDT Infusion Hematology Oncology at [address] [phone] 10/24/2023 9:30 AM EDT Scheduled View Only Radiation Oncology at [address] [phone] Rad Nurse [place] 10/24/2023 10:00 AM EDT Office Visit Radiation Oncology at [address] [phone] Bigg Peters MD [address] [place] [address] DR RADIATION ONCOLOGY [place], [place] [address] 11/01/2023 9:00 AM EDT Office Visit Hematology/Oncology at [address] [phone] Cl Hess MD [facility] [place] [address] Yessi Renee [address] HEMATOLOGY AND ONCOLOGY [place], [place] [phone] 11/01/2023 9:30 AM EDT Infusion Hematology Oncology at [address] [phone] 12/24/2023 1:00 PM EDT TH Visit (TeleHealth) Radiation Oncology at [address] [phone] Ping Moore PA [facility] [place] [address] documented as of this encounter Visit Diagnoses Diagnosis Malignant neoplasm of prostate documented in this encounter Care Teams Chief Executive Relationship Specialty Start Date End Date Alo Carey DO [address] [place] [address] [place] [address] PCP - General Internal Medicine 08/31/20 07/03/23 documented as of this encounter
--- OUTSIDE RECORDS SUMMARY | 2023-10-06 00:43 | XMS_ITS | Encounter Summary ---
Author Organization [facility] Address [facility] [place] [address] Care Team Providers Care Train Driver Name Role Phone Alo Carey Primary Care Provider [phone] Encounter Details Date Type Department Care Team (Late st Contact Info) Description 02/22/2021 [place] [phone] Fletcher Camarena MD [facility] [place] [address] Social History Tobacco Use Types Packs/Day Years [...] encounter Miscellaneous Notes * Telephone Encounter - Fletcher Camarena MD - 02/22/2021 9:36 PM EST TELEPHONE NOTE Date of call: 02/22/21 Time of call: 9:36 PM Issue: urinary retention Returned patient phone call. He is s/p PVP on 02/02 (ASA/Plavix through surgery). Patient is at [facility] ED for retention. Approximately 1000 ml marooned colored urine output. Discussed with [facility] ED nursing staff and ER provider. Patient will need 18Fr coude Krause with 30 cc in balloon for 7-10 days. However, advised the staff to irrigate the bladder to check for clots, if significant clot burden concerning for clot retention with Krause, patient will need formal irrigation / CBI, which may require higher level of care per ED provider. Will request for void trial in 7-10 days at [facility]. Added to culture list. Note routed to Dr. Engle. Fletcher Camarena MD documented in this encounter Plan of Treatment Upcoming Encounters Date Type Department Care Team (Late st Contact Info) Description 10/11/2023 10:00 AM EDT Tech [place] [phone] Giacomo Queen 10/11/2023 11:15 AM EDT Office [place] [phone] Basim Barr MD [facility] [place] [address] 10/18/2023 9:00 AM EDT Office Visit Hematology/Oncology at [address] [phone] Cl Hess MD [facility] [place] [address] Yessi Renee APRN [address] [place] [address] DR HEMATOLOGY AND ONCOLOGY [place], [place] [id number] 10/18/2023 9:30 AM EDT Infusion Hematology Oncology at [address] [phone] 10/24/2023 9:30 AM EDT Scheduled View Only Radiation Oncology at [address] [phone] St La Nena Champagne 10/24/2023 10:00 AM EDT Office Visit Radiation Oncology at [address] [phone] Bigg Peters MD [address] [place] [address] DR RADIATION ONCOLOGY [place], [place] [id number] 11/01/2023 9:00 AM EDT Office Visit Hematology/Oncology at [address] [phone] Cl Hess MD [facility] [place] [address] Yessi Renee APRN [address] [place] [address] DR HEMATOLOGY AND ONCOLOGY [place], [place] [id number] 11/01/2023 9:30 AM EDT Infusion Hematology Oncology at [address] [phone] 12/24/2023 1:00 PM EDT TH Visit (TeleHealth) Radiation Oncology at [address] [phone] Ping Moore PA [facility] DR HEMATOLOGY [place] [address] documented as of this encounter Visit Diagnoses Not on filedocumented in this encounter Care Teams Train Driver Relationship Specialty Start Date End Date Alo Carey DO [address] [place] [address] [place] [address] PCP - General Internal Medicine 08/31/20 07/03/23 documented as of this encounter
--- OUTSIDE RECORDS SUMMARY | 2023-10-06 00:43 | XMS_ITS | Encounter Summary ---
Author Organization [facility] [place] [address] Care Team Providers Care Sewer Head Name Role Phone CherryAlo Lon RUTHERFORD Primary Care Provider [phone] Reason for Visit * Consultation (Routine) - Closed Specialty Diagnoses / Procedures Referred By Marques livingston Referred To Contact Neurology Diagnoses ASCVD (arteriosclerotic cardiovascular disease) Ismael Wu MD [facility] DR ORTHOPA[place] [address] [facility] [address] [place] [address] Referral ID Status Reason Start Date Expiration Date V isits Requested Visits Authorized [id number] Closed Consult, Test & Treat 11/17/2020 11/17/2021 1 1 Encounter Details Date Type Department Care Team (Late st Contact Info) Description 03/15/2021 11:00 AM EST [place] [phone] Kushal Aceves MD [facility] [place] [address] Stenosis of right carotid artery Social History Tobacco Use Types Packs/Day Years [...] Sign Reading Time Taken Comments Blood Pressure 142/64 03/15/2021 10:41 AM EST Pulse 58 03/15/2021 10:41 AM EST Temperature - - Respiratory Rate - - Oxygen Saturation - - Inhaled Oxygen Concentration - - Weight 108.9 kg (240 lb) 03/15/2021 10:41 AM EST reported Height 180.3 cm (5' 11) 03/15/2021 10:41 AM EST reported Body Mass Index 33.47 03/15/2021 10:41 AM EST documented in this encounter Progress Notes * Kushal Aceves MD - 03/15/2021 11:00 AM EST Images from the original note were not included. Cerebrovascular Disease and Stroke Program [place] [address] t: [phone] / f: [phone] Date of Appointment: 03/15/2021 Patient: Tha Sadler PCP: Alo Carey DO Consultation Requested By: Ismael Wu Md [facility] [place] [address] . HISTORY: This 71 y.o. male is evaluated because of transient blurred vision and a right petrous carotid stenosis. He has a history of DM, tobacco abuse until 1989, He had a right CEA after disease was found during evaluation for surgery for his PAD in June of 2018 and a left CEA with a CABG in December of 2018 in [facility]. He has PAD with stenting in 2018 and 2019 and and a bypass in March of 2019. 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 On 11/24/2019 while at work his left arm went numb and then he had tunnel vision. He saw a Vascular Surgeon Dr Hobbs in [facility] and a CUS was clear and then had an MRIMRA done that showed no stroke. He was seen in an Eye Clinic in [place] and he has had persistent severe vision loss (99% loss) since then. He saw Dr Avilez in February who presumed he had a retinal artery occlusion more likely than an ischemic optic neuropathy and was given eye drops. He moved to the area after he bought a home in [place] [facility]. Needs to have more hip surgery done but prostate cancer was found and he had prostate surgery complicated by clot retention. Radiation and Lupron injections are planned. Past Medical History: Diagnosis Date ??? 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 can not read. can see shadows. No vision in left eye since child saavedra accident. ??? Claudication ??? Colon adenocarcinoma 2009 recieved chemo in [place] ??? Coronary artery dissection ??? CPAP (continuous [...] G47.33 ??? BPH (benign prostatic hyperplasia) N40.0 Allergies Allergen Reactions ??? Other [Unclassified Drug] Other (See Comments) Had reaction to a dye used during vascular procedure at [facility] in [place]: nyla Has tolerated MRI and CT contrast. Outpatient Medications Marked as Taking for the 03/15/21 encounter (Office Visit) with Kushal Aceves MD Medication Sig Dispense Refill ??? pantoprazole EC (Protonix) 40 mg Tablet, Delayed Release (E.C.) TAKE 1 TABLET BY MOUTH TWICE DAILY FOR 56 DAYS ??? carvediloL (Coreg) 25 mg Tablet Take [...] Capsule Take 2 g by mouth daily. Social History Socioeconomic History ??? Marital status: Spouse name: None ??? Number of children: None ??? Years of education: None ??? Highest education level: None Occupational History ??? 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 Smoking status: Former Smoker Packs/day: 4.00 Years: 30.00 Pack years: 120.00 Types: Cigarettes Quit date: 1992 Years since quittin.0 ??? Smokeless tobacco: Never Used Substance and Sexual Activity ??? Alcohol use: Yes Alcohol/week: 5.0 standard drinks Types: 5 Cans of beer per week ??? Drug use: Not Currently Types: Marijuana Comment: tried pot for glaucoma ??? Sexual activity: None Other Topics Concern ??? None Social History Narrative ??? None Social Determinants of Health Financial Resource Strain: Not on file Food Insecurity: Not on file Transportation Needs: Not on file Physical Activity: Not on file Housing Stability: Not on file Family History Problem Relation Age of Onset ??? Diabetes Father No family history of neurologic disease noted. ROS: The following items on the list were endorsed while a complete ROS was obtained: headache glaucoma transient loss of vision double vision dizziness difficulty speaking weakness of arm/leg numbness of arm/leg unsteadiness walking falls seizures difficulty swallowing memory loss ringing in ears snoring incontinence chest pain palpitations trouble breathing trouble lying flat nausea/vomiting indigestion abdominal pain rashes birthmarks easy bruising miscarriages blood clots in legs (DVT) poor circulation erectile dysfunction depression anxiety joint pains fatigue Stroke:MMAS-4 03/15/2021 MMAS-4 Score 4 (High Adherence) Do you ever forget to take your medication? No Are you careless at times about taking your medicine? No Sometimes, if you feel worse when you take the medicine, do you stop taking it? No When you feel better do you sometimes stop taking your medicine? No Stroke:PROMIS-10 03/15/2021 Pqqkuk64-Slooptfl Health Score 42.3 Fqslfg69-Xzjfft Health Score 50.8 Health in general Very Good Quality of life Good Physical health Good Mental health Very Good Satisfaction with social activities Good Ability to carry out physical activities A little Rate of pain 2 Rate of fatigue Mild Ability to carry out social activities Good Bothered by emotional problems Never Stroke:SIS-16 03/15/2021 SIS-16 Score 75 a. Dress the top part of your body? Not difficult at all b. Bathe yourself? Not difficult at all c. Get to the toilet on time? A little difficult d. Control your bladder (not have an accident)? Not difficult at all e. Control your bowels (not have an accident)? Not difficult at all f. Standing without losing balance? Not difficult at all g. Go shopping? Not difficult at all h. Do heavy plumbing contractor (e.g., vaccum, laundry or yard work?) Not diffcult at all i. Stay sitting without losing your balance? Not difficult j. Walk without losing your balance? A little difficult k. Move from a bed to a chair? Not difficult at all l. Walk fast? A little difficult m. Climb one flight of stairs? Not difficult at all n. Walk one block? Somewhat difficult o. Get in and out of a car? Not difficult at all p. Carry heavy objects (e.g., bag of groceries) with your affected hand? Not difficult at all Stroke:Cognitive Screening 03/15/2021 Patient Cognitive Screening Yes Stroke:GAD2+7 03/15/2021 GAD2 Subscore 0 (Brief screen negative) Nervous, anxious Not at all Unable to stop worrying Not at all Stroke:PHQ2+9 03/15/2021 PHQ-2 Score 0 (Brief screen negative) Little interest or pleasure Not at all Down, depressed, hopeless Not at all No flowsheet data found. X stroke questionnaire responses reviewed EXAM: Patient Vitals for the past 24 hrs: Pulse BP 03/15/21 1041 58 142/64 General: Well appearing patient, nontoxic. Sclerae anicteric. No cervical adenopathy, thyromegaly or carotid/vertebral bruits. No audible wheezing. No edema lower extremities. Heart regular, no murmur. Radial pulses palpable and symmetric. Neuro: MS--alert, oriented; speech fluent/articulate, no dysarthria, paraphasic errors or roopa aphasia; naming, repetition, recall intact. CN--PERRL w/o anisocoria; no ptosis; EOMI; visual raymond intact to confrontation; facial sensation;facial smile/grimace intact; hearing intact to conversation Motor--No pronator drift; bulk and tone normal. Sens--light touch, temp intact throughout; No DSSE. Coord--FTN and HTS performed w/o dysmetria Gait- gait unremarkable DATA: Data and records reviewed: MRI [facility] showed no acute changes but MRA head showed a probable severe or moderate stenosis of the right petrous carotid artery. Results for THA SADLER ( ) as of 03/27/2021 23:13 Ref. Range 02/02/2021 08:20 Sodium Latest Ref Range: 135 - 145 mmol/L 136 Potassium Latest Ref Range: 3.5 - 5.0 mmol/L 4.1 Chloride Latest Ref Range: 98 - 107 mmol/L 103 CO2 Latest Ref Range: 22 - 31 mmol/L 19 (L) Anion Gap Latest Ref Range: 5 - 15 mmol/L 14 BUN Latest Ref Range: 10 - 20 mg/dL 13 Creatinine Latest Ref Range: 0.80 - 1.50 mg/dL 0.51 (L) Estimated GFR Latest Ref Range: >=60 mL/min/1.73 m?? 107 Calcium Latest Ref Range: 8.5 - 10.5 mg/dL 8.3 (L) Glucose Lvl Latest Ref Range: 65 - 199 mg/dL 123 CLINICAL IMPRESSION AND RECOMMENDATIONS: This 71 yo man has an extensive history of atherosclerotic disease and had ight eye visual loss dueto ocular ischemia in November of 2019. It's hard to tell if the ocular ischemia was related to the petrous ICA stenosis and a CRAO but the left-sided symptoms he had suggest it was likely related to it. His last carotid ultrasound was done in [place] at that time and showed minimal disease. He has remained on DAPT and this is not required for his ocular event or the carotid disease but the ongoing need for this should probably be determined by a vascular surgeon. He has not had any neurologic symptoms in a year and a half and does not require any immediate imaging at this time but a CTA of the head and neck would be reasonable to assess the severity of this petrous carotid stenosis. I will clarify if he is willing to have this done here or if he would like to have this done locally. I would like to see a recent lipid profile. His blood pressure was elevated today and warrants ongoing monitoring and other interventions (dietary and other lifestyle interventions and possibly medication adjustments). On the day of this encounter, I the medical provider spent a total of at least 50 minutes providingthis patient's care. This includes time spent [id number] with the patient performing evaluation, examination, and counseling . It also includes non hepm-vx-[id number] time preparing to see the patient, reviewing the chart, coordinating care, and documenting clinical information in the electronic healthrecord. documented in this encounter Plan of Treatment Upcoming Encounters Date Type Department Care Team (Late st Contact Info) Description 10/11/2023 10:00 AM EDT Tech [place] [address] Giacomo Queen 10/11/2023 11:15 AM EDT Office [place] [address] Basim Barr MD [facility] [place] [address] 10/18/2023 9:00 AM EDT Office Visit Hematology/Oncology at [address] [phone] Cl Hess MD [facility] [place] [address] Yessi Renee APRN [address] [place] [address] DR HEMATOLOGY AND ONCOLOGY [place], [place] [address] 10/18/2023 9:30 AM EDT Infusion Hematology Oncology at [address] [phone] 10/24/2023 9:30 AM EDT Scheduled View Only Radiation Oncology at [address] [phone] St La Nena Champagne 10/24/2023 10:00 AM EDT Office Visit Radiation Oncology at [address] [phone] Bigg Peters MD [address] [place] [address] DR RADIATION ONCOLOGY [place], [place] [id number] 11/01/2023 9:00 AM EDT Office Visit Hematology/Oncology at [address] [phone] Cl Hess MD [facility] [place] [address] Yessi Renee APRN [address] [place] [address] DR HEMATOLOGY AND ONCOLOGY [place], [place] [phone] 11/01/2023 9:30 AM EDT Infusion Hematology Oncology at [address] [phone] 12/24/2023 1:00 PM EDT TH Visit (TeleHealth) Radiation Oncology at [address] [phone] Ping Moore PA [facility] DR HEMATOLOGY [place] [address] Scheduled Referrals Name Type Priority Associated Diagnoses Orde r Schedule Referral to Neurology Outpatient Referral Routine ASCVD (arteriosclerotic cardiovascular disease) Ordered: 11/17/2020 documented as of this encounter Visit Diagnoses Diagnosis Stenosis of right carotid artery Occlusion and stenosis of carotid artery without mention of cerebral infarction documented in this encounter Care Teams Sewer Head Relationship Specialty Start Date End Date Alo Carey DO [address] [place] [address] [place] [phone] PCP - General Internal Medicine 08/31/20 07/03/23 documented as of this encounter
--- OUTSIDE RECORDS SUMMARY | 2023-10-06 00:43 | XMS_ITS | Encounter Summary ---
Author Organization Count Includes [facility] Address [facility] [place] [address] Care Team Providers Care Merchandise Presentation Manager Name Role Phone Alo Carey Primary Care Provider [phone] Encounter Details Date Type Department Care Team (Latest Contact Info) Description 02/02/2021 7:43 AM EST - 02/03/2021 11:58 AM EST Hospital Encounter Med Surg Unit at [address] [phone] Cayetano Engle MD [facility] [place] [address] Discharge Disposition: Home Social History Tobacco Use [...] Sign Reading Time Taken Comments Blood Pressure 144/77 02/03/2021 5:35 AM EST Pulse 68 02/03/2021 5:35 AM EST Temperature 36.2 ??C (97.2 ??F) 02/03/2021 5:35 AM ES T Respiratory Rate 18 02/03/2021 5:35 AM EST Oxygen Saturation 94% 02/03/2021 5:35 AM EST Inhaled Oxygen Concentration - - [...] Hospital Course: Patient was admitted electively to [facility] via the same day surgery program and [...] a dye used during vascular procedure at [facility] in [place]: shaking Has tolerated MRI and CT contrast. [...] PM STJ INFUSION, ROOM Hematology Oncology at [facility] Arrive at: [facility] door at end of hallway [phone] 03/15/2021 11:00 AM Kushal Aceves MD [place]rology [place] [facility] [place] at: Bottom Turning Lathe Tender Area [phone] 03/22/2021 2:00 PM Cayetano Engle MD [place]rology [place] [facility] [place] at: Home [phone] Please do not come in for this visit. Your provider will call you at the number you provided. 03/30/2021 1:30 PM STJ INFUSION, ROOM Hematology Oncology at [facility] Arrive at: [facility] door at end of hallway [phone] 04/27/2021 1:30 PM STJ INFUSION, ROOM Hematology Oncology at [facility] door at end of hallway [phone] 05/25/2021 1:30 PM STJ INFUSION, ROOM Hematology Oncology at [facility] Arrive at: [facility] door at end of hallway [phone] 06/22/2021 1:30 PM STJ INFUSION, ROOM Hematology Oncology at [facility] Arrive at: [facility] door at end of hallway [phone] Follow-Up: Future Appointments Date Time Provider Department Center 03/02/2021 1:30 PM STJ INFUSION, ROOM [facility] [place] [facility] 03/15/2021 11:00 AM Kushal Aceves MD [facility] [place] [facility] [place] 03/22/2021 2:00 PM Cayetano Engle MD [facility] [place] [facility] 03/30/2021 1:30 PM STJ INFUSION, ROOM [facility] [place] [facility] 04/27/2021 1:30 PM STJ INFUSION, ROOM [facility] Hem [facility] [place] [facility] 05/25/2021 1:30 PM STJ INFUSION, ROOM [facility] [place] [facility] 06/22/2021 1:30 PM STJ INFUSION, ROOM [facility] Hem [facility] [place] [facility] Primary Care Provider: Alo Carey DO [phone] Follow-up Recommendations for Providers: F/u with Dr. [...] was managed by the Urology Team at [facility]. If you have any questions or concerns, please feel free to contact us. Provider Contact Information: Urology Clinic: [facility] [place] (after business hours): documented in this encounter Discharge Instructions * Patient Instructions* Navin Crocker MD - 02/02/2021 6:03 PM EST [facility] [place] [place] Post-Operative Discharge Instructions PHOTO-SELECTIVE VAPORIZATION OF [...] your urine. Follow Up: ??? Please call [facility] [place] at [phone] to make a routine follow-up appointment 4 weeks after your surgery. The Inpatient team may suggest earlier date if deemed necessary. Please see below if your appointment has already been created. ??? If you have any immediate questions or concerns, you may call the main [facility] line and ask the panel machine operator for the ???Urology Resident solution engineer?? . FOLLOW-UP APPOINTMENT Future Appointments and Orders Future Appointments and Orders Future Appointments Provider Department Dept Phone 03/02/2021 1:30 PM STJ INFUSION, ROOM Hematology Oncology at [facility] Arrive at: [facility] door at end of [address] [phone] 03/15/2021 11:00 AM Kushal Aceves MD Neurology at [facility] [place]rive at: Bottom Turning Lathe Tender Area 3C [phone] 03/30/2021 1:30 PM STJ INFUSION, ROOM Hematology Oncology at [facility] Arrive at: [facility] door at end of [address] [phone] 04/27/2021 1:30 PM STJ INFUSION, ROOM Hematology Oncology at [facility] Arrive at: [facility] door at end of hallway [phone] 05/25/2021 1:30 PM STJ INFUSION, ROOM Hematology Oncology at [facility] Arrive at: [facility] door at end of [address] [phone] 06/22/2021 1:30 PM STJ INFUSION, ROOM Hematology Oncology at [facility] Arrive at: [facility] door at end of [address] [phone] documented in this encounter Medications at Time [...] Lou RN, transfer of care to [facility] in room 136 * Briana Burton [...] ??? Colon adenocarcinoma 2009 recieved chemo in [place] ??? Coronary artery dissection ??? CPAP (continuous [...] 20.72) performed by Ismael Wu MD at [facility] Allergies Allergen Reactions ??? Other [Unclassified Drug] Other (See Comments) Had reaction to a dye used during vascular procedure at [facility] in [place]: shaking Has tolerated MRI and CT contrast. [...] Care: Contact information for follow-up Alo Carey, DO Relationship: PCP - [address] [place] [address] Transportation: Brother able to provide transport upon discharge Wheelchair van/Ambulance? No Functional status prior to admission: Independent Home Environment: Others in the home: sibling(s) (Patient lives with his two brothers in [place], [place] (mailing address is [place], [place]).). Current Living Arrangements: home/apartment/condo. Accessibility Concerns:Resides [...] AARP SUPPLEMENT Prescription Coverage: Yes Preferred Pharmacy: [id number] - [facility] [address] [facility] [address] [facility] [address] [phone] This plan was formulated with input from patient, brother Damian, and team. All are in agreement with plan. Jackelyn Marti RN Clinical Mounted PolicePhotoresist Printer * Brief Op Note - Navin Crocker MD - 02/02/2021 10:07 AM EST [facility] Brief Operative Note [address] Patient Name: Wero Sadler : [id number] MR#: [id number] Case Date: 02/02/2021 Case Scheduled Time: 829 [...] Crocker MD - 02/02/2021 9:13 AM EST [facility] Operative Note [address] Patient Name: Wero Sadler : [id number] MR#: [id number] Case Date: 02/02/2021 Case Scheduled Time: 0830 Surgeon: Surgeon(s) and Role: * Cayetano Engle [...] protected. Prep and drape was performed in gene ral standard sterile fashion. With a 26French cystoscopy [...] removing the sheath and placing an 20 Malian 3-way Krause catheter. The drainage was clear; therefore, we left the bladder irrigation on standby. The patient tolerated the procedure very well and after adequate recovery, he was transferred to the Recovery Room in stable condition. ATTESTATION: I was present for the entirety of the case. No complication occurred throughout the procedure. TOTAL ENERGY USED: [id number] joules. LASING TIME: 16 minutes and 47 [...] AM EDT Tech [place] [address] Giacomo Queen 10/11/2023 11:15 AM EDT Office [place] [address] Basim Barr MD [facility] [place] [address] 10/18/2023 9:00 AM EDT Office Visit Hematology/Oncology at [address] [phone] Cl Hess MD [facility] [place] [address] Yessi Renee APRN [address] [place] [address] DR HEMATOLOGY AND ONCOLOGY [place], [place] [phone] 10/18/2023 9:30 AM EDT Infusion Hematology Oncology at [address] [phone] 10/24/2023 9:30 AM EDT Scheduled View Only Radiation Oncology at [address] [phone] [place] 10/24/2023 10:00 AM EDT Office Visit Radiation Oncology at [address] [phone] 78 Bigg Peters MD [address] [place] [address] DR RADIATION ONCOLOGY [place], [place] [address] [phone] 11/01/2023 9:00 AM EDT Office Visit Hematology/Oncology at [address] [phone] Cl Hess MD [facility] [place] [address] Yessi Renee APRN [address] [place] [address] DR HEMATOLOGY AND ONCOLOGY [place], [place] [phone] 11/01/2023 9:30 AM EDT Infusion Hematology Oncology at [address] [phone] 12/24/2023 1:00 PM EDT TH Visit (TeleHealth) Radiation Oncology at [address] [phone] Ping Moore PA [facility] DR HEMATOLOGY [place] [address] documented as of this encounter Procedures Procedure Name Priority Date/Time Associated Diagnosis Comments MODIFIER,GREENLIGHT LASER 02/02/2021 8:55 AM EST Benign prostatic hyperplasia, unspecified whether lower urinary tract symptoms present Laser Vaporization Surgery Prostate, Complete (05198) 02/02/2021 8:55 AM EST Benign prostatic hyperplasia, unspecified whether lower urinary tract symptoms present POCT GLUCOSE Routine 02/02/2021 8:36 AM EST BASIC METABOLIC PANEL Routine 02/02/2021 8:20 AM EST documented in this encounter Results * POCT Glucose (02/02/2021 8:36 AM EST) Glucose, POC 142 65 - 199 mg/dL [facility] Blood 02/02/2021 8:36 AM EST 02/02/2021 8:36 AM EST Cayetano Engle MD POINT OF CARE TEST O RDERABLES [facility] [address] [place] [address] * (ABNORMAL) Basic Metabolic Panel (non-fasting) (02/02/2021 8:20 AM EST) Glucose 123 65 - 199 mg/dL [facility] Comment:Diabetes: >=200 mg/d L plus symptoms Blood Urea Nitrogen 13 10 - 20 mg/dL [facility] Creatinine 0.51(L) 0.80 - 1.50 mg/dL [facility] Sodium 136 135 - 145 mmol/L [facility] Potassium 4.1 3.5 - 5.0 mmol/L [facility] Comment: Please note: ??Patients with WBC >100,000 may have falsely elevated Potassium levels. ??For accurate Potassium quantification in these patients send serum separator tube (gold top) for subsequent determinations. ??Contact the Clinical Chemistry Laboratory if there are any questions. Chloride 103 98 - 107 mmol/L [facility] Carbon Dioxide 19(L) 22 - 31 mmol/L [facility] Anion Gap 14 5 - 15 mmol/L [facility] Calcium 8.3(L) 8.5 - 10.5 mg/dL [facility] Est Glomerular Filtration Rate 107 >=60 mL/min/1. 73 m?? [facility] Comment: This patient? s estimated [...] Agency Comment Spec In Lab Leah Trejo [facility] CHEMISTRY ORDERABL ES [facility] [address] [place] [address] documented in this encounter Visit Diagnoses Diagnosis BPH (benign prostatic hyperplasia) Unspecified hyperplasia of prostate without urinary obstruction and other lower urinary tract symptoms (LUTS) documented in this encounter Admitting Diagnoses Diagnosis [...] 8:22 AM EST 1,000 mLs 30 mL/hr metFORMIN XR (Glucophage XR) tablet 1,000 mg [...] Lou RN)2326 (Given - Provider: Ruth Morales, AYE) 0526 (Given - Provider: Ruth Morales, RN) [...] (Given - Provid er: Tracy Mann RN) carvediloL (Coreg) tablet 25 mg 25 mg, Oral, 2 TIMES DAILY WITH MEALS, First dose on Ammy 02/02/21 at 1700, Until Discontinued, Routine 1752 (Given - Provider: Ale Lou RN) 0809 (Given - Provider: Tracy Mann RN) ciprofloxacin (Cipro) 400 mg in dextrose 5% 200 mL infusion (COMPLETED) 400 mg, Intravenous, SYSTEM SUPPORT SPECIALIST TO O.R., 1 dose, On Ammy 02/02/21 at 0800, Administer over 60 Minutes, Day of Surgery (Day of Procedure), Indication for (Active or Suspected): Prophylaxis 855 (Given - Provider: Vilma Erazo CRNA) ciprofloxacin [...] Discontinued, DO NOT CRUSH OR OPEN, Routine 08 (Given - Provid er: Tracy Mann RN) [...] (CANCELED) 1,000 mL, Intravenous, CONTINUOUS, Starting on Sat02/02/21 [...] Routine documented in this encounter Care Teams Merchandise Presentation Manager Relationship Specialty Start Date End Date Alo Carey DO [address] [place] [phone] PCP - General Internal Medicine 08/31/20 07/03/23 documented as of this encounter
--- OUTSIDE RECORDS SUMMARY | 2023-10-06 00:43 | XMS_ITS | Encounter Summary ---
Author Organization [facility] [place] [address] Care Team Providers Care Client Strategist Name Role Phone Alo Carey Primary Care Provider [phone] Encounter Details Date Type Department Care Team (Late st Contact Info) Description 01/27/2021 2:15 PM EST Telephone Pre Admission Testing at [address] [phone] Social History Tobacco Use Types Packs/Day Years [...] as of this encounter Progress Notes * Caridad Larson RN - 01/27/2021 2:15 PM EST EXPOSURE: Have you been in contact with anyone suspected of or confirmed to have COVID-19 in the PAST 10 DAYS? []Yes [x]No COVID-19 SCREENING: In the past 10 days, have you had any of the following symptoms: [] Fever (subjective or documented fever) [] Chills [] Cough [] Shortness of breath or difficulty breathing [] Fatigue [] Muscle or body aches [] Headache [] New loss of taste or smell [] Sore throat [] Nausea or vomiting [] Diarrhea [x]NONE OF THE ABOVE Tested positive for Covid (within the past 6 weeks): [] Yes [x] No Upper respiratory symptoms: [] Yes [x] No Lower respiratory symptoms: [] Yes [x] No Other symptoms: n/a Date resolution of symptoms: Were you hospitalized, if so date released: documented in this encounter Plan of Treatment Upcoming Encounters Date Type Department Care Team (Late st Contact Info) Description 10/11/2023 10:00 AM EDT Tech [place] [phone] Giacomo Queen 10/11/2023 11:15 AM EDT Office Visit [place] [phone] Basim Barr MD [facility] [place] [address] 10/18/2023 9:00 AM EDT Office Visit Hematology/Oncology at [address] [phone] Cl Hess MD [facility] [place] [address] Yessi Renee APRN [address] [place] [address] DR HEMATOLOGY AND ONCOLOGY [place], [place] [phone] 10/18/2023 9:30 AM EDT Infusion Hematology Oncology at [address] [phone] 10/24/2023 9:30 AM EDT Scheduled View Only Radiation Oncology at [address] [phone] [address] [place] 10/24/2023 10:00 AM EDT Office Visit Radiation Oncology at [address] [phone] Bigg Peters MD [address] [place] [address] [place] [address] 11/01/2023 9:00 AM EDT Office Visit Hematology/Oncology at [address] [phone] Cl Hess MD [facility] [place] [address] Yessi Renee APRN [address] [place] [address] DR HEMATOLOGY AND ONCOLOGY [place], [place] [phone] 11/01/2023 9:30 AM EDT Infusion Hematology Oncology at [address] [phone] 12/24/2023 1:00 PM EDT TH Visit (TeleHealth) Radiation Oncology at [address] [phone] Ping Moore PA [facility] DR [place] [address] documented as of this encounter Visit Diagnoses Not on filedocumented in this encounter Care Teams Client Strategist Relationship Specialty Start Date End Date Alo Carey DO [address] [place] [address] [place] [phone] PCP - General Internal Medicine 08/31/20 07/03/23 documented as of this encounter
--- OUTSIDE RECORDS SUMMARY | 2023-10-06 00:43 | XMS_ITS | Encounter Summary ---
Author Organization [facility] [place] [address] Care Team Providers Care Dental Professional Name Role Phone lAo Carey DO Primary Care Provider [phone] Encounter Details Date Type Department Care Team (Late st Contact Info) Description 02/02/2021 8:56 AM EST Anesthesia Event Main OR at [address] [address] Vilma Erazo CRNA [address] [place] [address] Leah Trejo CRNA [facility] [place] [address] Anesthesia Record Procedure Summary Procedure Name Responsible Anesthesiologist Anesthesia Start Time Anesthesia Stop Time CYSTO, LASER TURP (WRVU 12.15) (Midline: Bladder) Vilma Erazo CRNA 02/02/21 0856 02/02/21 1004 Events Date Time Event Comment 02/02/2021 0852 0856 AN Verify 0856 Start 0856 An Start Data 0905 An Induction 0906 An Intubation 0907 Anesthesia Ready 0908 an aliza now 0911 Quick Note Laser eye prote ction applied to patient 0913 Procedure Start 0956 Extubation/LMA Out 1001 an stop data 1004 Recovery or ICU Handoff Nisha ent care was transferred to the destination unit staff after review of the patient's medical history, current anesthetic/surgical status and plan, according to the Provider Handoff Checklist. 1004 Stop Meds Name Total IV Lidocaine 50 mg Propofol 200 mg Propofol INF 375.87 mg Ondansetron 4 mg Dexamethasone 4 mg PHENYLephrine 560 mcg Dexmedetomidine 4 mcg ciprofloxacin (Cipro) 400 mg in dextrose 5% 200 mL infusion 400 mg lactated ringers infusion 600 mL * Agents Name O2 Air N2O Sevoflurane (et) * Blood No blood administrations on file. Lines, Drains, and Airways Type Details Placement Removal (RETIRED) Peripheral IV Line - Single Lumen 02/02/21; 820; basilic vein (medial side of arm), left; [id number] catheter system; Anatomical Landmarks; 20 gauge; briana garcia; distraction, tolerated well, appears comfortable; 02/03/21; 1130 02/02/21 08 by Briana Garcia RN 02/03/21 113 by Tracy Terry RN Supraglottic Mask Ventilation: No t Attempted (0); LMA Type: air-Q; Inserted by: ; Removal Date: 02/02/21; Removal Time: 95502/02/21 09 by Vilma Erazo CRNA 02/02/21 0956 by Vilma Erazo CRNA Urethral Catheter 02/02/21; 0943; Urol ogic surgery; (3 way, continuous irrigation with normal saline); latex (red); 20; inserted at this facility (inserted by Dr. Engle after laser TURP); 1; 30; intraurethral Xylocaine gel; drainage bag to dependent drainage; 02/03/21; 0730 02/02/21 0943 by Jannette Vera RN 02/03/21 0730 by Tracy Terry RN documented in this encounter Social History [...] OR Notes * Anesthesia Postprocedure Evaluation - Vilma Erazo CRNA - 02/02/2021 2:53 PM EST Department of Anesthesiology Post-procedure Note Patient: Wero Sadler Procedure Summary Date: 02/02/21 Room / Location: [facility] OR / [facility] MAIN OR Anesthesia Start: 855 Anesthesia Stop: 1004 Procedures: CYSTO, LASER TURP (WRVU 12.15) (Midline Bladder) MODIFIER,GREENLIGHT LASER (Midline Bladder) Diagnosis: Benign prostatic hyperplasia, unspecified whether lower urinary tract symptoms present (BPH) Surgeons: Cayetano Engle MD Responsible Provider: Vilma Erazo CRNA Anesthesia Type: general ASA Status: 3 All Anesthesia Providers: MARITZA Independent: Vilma Erazo CRNA Vitals Value Taken Time BP 141/70 02/02/21 1100 Temp 36.4 ??C (97.5 ??F) 02/02/21 1055 Pulse 56 02/02/21 1101 Resp 15 02/02/21 1101 SpO2 94 % 02/02/21 1101 Pain Level 0 02/02/21 1055 Vitals shown include unvalidated device data. Patient Location: PACU/[facility] Level of Consciousness: Awake and Alert Pain Management: Satisfactory Analgesia PONV: None Cardiovascular Status: At Baseline Respiratory Status: At Baseline and Room Air Postoperative Fluid Status: Intravascular EUvolemia Possible Anesthetic Complications: NONE apparent at time of evaluation Final Primary Anesthesia Type: General (The anesthetic type performed was the same as planned.) Comments: * Anesthesia Preprocedure Evaluation - Vilma Erazo CRNA - 02/01/2021 2:33 PM EST Pre-Anesthesia Evaluation for: Wero Sadler a 71 y.o. male. Procedure(s): CYSTO, LASER TURP (WRVU 12.15) Patient Active Problem List Diagnosis ??? Obstructive sleep apnea syndrome ??? Malignant neoplasm of prostate ??? Benign prostatic hyperplasia ??? Postoperative urinary retention ??? Primary osteoarthritis of left hip ??? s/p L JIMI, posterior, Dr. Wu, 10/10/20 ??? ASCVD (arteriosclerotic cardiovascular disease) ??? Colorectal cancer ??? Diabetes mellitus ??? Hypercholesterolemia ??? Hypertensive disorder Past Medical History: Diagnosis Date ??? 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 can not read. can see shadows. No vision in left eye since child saavedra accident. ??? Claudication ??? Colon adenocarcinoma 2009 recieved chemo in [place] ??? Coronary artery dissection ??? CPAP (continuous [...] 20.72) performed by Ismael Wu MD at [facility] MAIN OR Social History Tobacco Use ??? Smoking status: Former Smoker Packs/day: 4.00 Years: 30.00 Pack years: 120.00 Types: Cigarettes Quit date: 1992 Years since quittin.9 ??? Smokeless tobacco: Never Used Substance Use Topics ??? Alcohol use: Yes Alcohol/week: 5.0 standard drinks Types: 5 Cans of beer per week Social History Substance and Sexual Activity Drug Use Not Currently ??? Types: Marijuana Comment: tried pot for glaucoma Allergies Allergen Reactions ??? Other [Unclassified Drug] Other (See Comments) Had reaction to a dye used during vascular procedure at [facility] in [place]: shaking Has tolerated MRI and CT contrast. Medications: MAR and/or home medications have been reviewed. Physical Exam: Preprocedure Vitals Current as of 02/01/21 1433 No BP, pulse, respiration, SpO2, or temperature recorded. Height: Weight: BMI: IBW: Airway Assessment: Mallampati: II TM distance: >3 FB Neck ROM: full Cardiovascular Assessment: Rhythm: irregular Rate: normal system normal Pulmonary Assessment: breath sounds clear to auscultation pulmonary exam normal Dental Assessment: (+) upper dentures and lower dentures Misc Assessment: Patient is wearing No contact(s). IV access: Peripheral line Last Filed Perioperative Cognitive Screening Value Time User AD8 Total Score: 0 10/06/2020 3:00 PM Margarita Wilkerson RN AD8 Informant: Patient 10/06/2020 3:00 PM Margarita Wilkerson RN 4AT TOTAL Score: 0 10/12/2020 8:00 AM Savanah Guadalupe RN CFS Frailty Score: 3 10/06/2020 3:00 PM Margarita Wilkerson RN Anesthesia Plan: ASA 3 general, with a(n) intravenous induction Prelim note based on chart review: 70 y.o. M, BMI 34 for PVP PMHx significant for Afib, CAD s/p CABG (2018), CVA (on ASA/plavix), carotid dz (s/p CEA 08/2020), OLGA, DM2, prostate cancer, postop urinary retention following recent [place] [place] ?? Patient had urinary retention after a left hip replacement in 10/2020. He had a catheter for a week and was started on flomax. He passed void trial with PVR 107mL. He tried stopping flomax but PVR elevated to 400mL. It came back to 180 when he restarted. Prior anesthesia record reviewed: Mal 2, upper and lower dentures. Of note, pt did have GETA however there is no airway note documented. Appears that a pre- induction [place] was placed with some difficulty. GERD: on protonix Plan for GA/LMA Leah Trejo CRNA DOS: Wero reports feeling in their USOH. Denies CP/SOB/FALCON, recent illness/URI. Can achieve > 4 METs with difficulty as he has a great deal of pain in the hip that has not been replaced. No history of renal or thyroid disease, seizures. He has a benign growth on his liver and a pancreatic masswhich is planned for needle biopsy (incidental finding on CT, he is asymptomatic). He is blind in both eyes so his youngest brother has signed his consents for him today. HTN: took amlodipine & carvedilol today DM: took his glimepiride today, did not take metformin. POCT glucose = 142 at approx 0830 today GERD: no longer takes pantoprazole, denies heartburn recently or today NPO: appropriately NPO > 8 hours solids, > 2 hours liquids We have discussed the plan + risks/benefits of anesthesia. Plan for GA LMA w/multi-modal analgesia (PRN) and anti-emetic therapy. Wero was informed of the risks, benefits and alternatives of anesthesia. These risks included, but were not limited to, post-operative nausea and/or vomiting, pain, sore throat, dental/lip trauma, and other rare but serious complications such as major organ damage, awareness, severe allergic reactions, position-related nerve injuries, and need for blood transfusions. All questions were sought and answered. Wero verbalizes understanding, wishes to proceed, and his brother has signed consent for him as he cannot see the consent form. Region - Other Informed Consent: Anesthetic plan and risks discussed with patient. Anesthesia Screening documented in this encounter Plan of Treatment Upcoming Encounters Date Type Department Care Team (Late st Contact Info) Description 10/11/2023 10:00 AM EDT Tech [place] [address] Giacomo Queen 10/11/2023 11:15 AM EDT Office Visit [place] [address] Basim Barr MD [facility] [place] [address] 10/18/2023 9:00 AM EDT Office Visit Hematology/Oncology at [address] [phone] lC Hess MD [facility] [place] [address] Yessi Renee APRN [address] [place] [address] DR HEMATOLOGY AND ONCOLOGY [place], [place] [id number] 10/18/2023 9:30 AM EDT Infusion Hematology Oncology at [address] [phone] 10/24/2023 9:30 AM EDT Scheduled View Only Radiation Oncology at [address] [phone] Jeronimo Nurse La Nena 10/24/2023 10:00 AM EDT Office Visit Radiation Oncology at [address] [phone] Bigg Peters MD [address] [place] [address] DR RADIATION ONCOLOGY [place], [place] [id number] 11/01/2023 9:00 AM EDT Office Visit Hematology/Oncology at [address] [phone] Cl Hess MD [facility] [place] [address] Yessi Renee APRN [address] [place] [address] DR HEMATOLOGY AND ONCOLOGY [place], [place] [address] 11/01/2023 9:30 AM EDT Infusion Hematology Oncology at [address] [phone] 12/24/2023 1:00 PM EDT TH Visit (TeleHealth) Radiation Oncology at [address] [phone] Ping Moore PA [facility] DR [place] [address] documented as of this encounter Visit Diagnoses Not on filedocumented in this encounter Administered Medications Inactive Administered Medications - up to 3 most recent administrations Medication Order MAR Action Action Date Dose Rate Site ciprofloxacin (Cipro) 400 mg in dextrose 5% 200 mL infusion 400 mg, Intravenous, POULTRY PROCESSOR TO O.R., 1 dose, On Ammy 02/02/21 at 0800, Administer over 60 Minutes, Day of Surgery (Day of Procedure), Indication for (Active or Suspected): Prophylaxis Given 02/02/2021 8:56 AM EST 400 mg dexamethasone (Decadron) injection Intravenous, PRN, Starting on Ammy 02/02/21 at 0908, Until Ammy 02/02/21 at 1004, Anesthesia Intra-op, Routine Given 02/02/2021 9:08 AM EST 4 mg dexmedetomidine (Precedex) (4 mcg/mL) bolus injection (Anesthsia) Intravenous, PRN, Starting on Ammy 02/02/21 at 0918, Until Ammy 02/02/21 at 1004, Anesthesia Intra-op, Routine Given 02/02/2021 9:18 AM EST 4 mcg lactated ringers infusion 1,000 mL, Intravenous, CONTINUOUS, Starting on Ammy 02/02/21 at 0800, Until Ammy 02/02/21 at 1102, Day of Surgery (Day of Procedure) Restarted 02/02/2021 8:56 AM EST New Bag 02/02/2021 8:22 AM EST 1,000 mLs 30 mL/hr lidocaine (pf) (Xylocaine) (20 mg/mL) 2% injection syringe Intravenous, PRN, Starting on Ammy 02/02/21 at 0905, Until Ammy 02/02/21 at 1004, Anesthesia Intra-op, Routine Given 02/02/2021 9:05 AM EST 50 mg ondansetron (pf) (Zofran) (2 mg/mL) injection Intravenous, PRN, Starting on Ammy 02/02/21 at 0908, Until Ammy 02/02/21 at 1004, Anesthesia Intra-op, Routine Given 02/02/2021 9:08 AM EST 4 mg PHENYLephrine (Jose-Synephrine) (10 mg/mL) injection Intravenous, PRN, Starting on Ammy 02/02/21 at 0926, Until Ammy 02/02/21 at 1004, Anesthesia Intra-op, Routine Given 02/02/2021 9:45 AM EST 80 mcg Given 02/02/2021 9:44 AM EST 40 mcg Given 02/02/2021 9:41 AM EST 120 mcg propofoL (Diprivan) (10 mg/mL) infusion Intravenous, CONTINUOUS PRN, Starting on Ammy 02/02/21 at 0900, Until Ammy 02/02/21 at 1004, Anesthesia Intra-op, Routine Rate/Dose Change 02/02/2021 9:10 AM EST 50 mcg/kg/min 33.66 mL/hr New Bag 02/02/2021 9:00 AM EST 150 mcg/kg/min 100.98 mL /hr propofoL (Diprivan) 10 mg/mL bolus injection (Anesthesia) Intravenous, PRN, Starting on Ammy 02/02/21 at 0905, Until Ammy 02/02/21 at 1004, Anesthesia Intra-op Given 02/02/2021 9:05 AM EST 200 mg documented in this encounter Care Teams Dental Professional Relationship Specialty Start Date End Date Alo Carey DO [address] [place] [address] [place] [phone] PCP - General Internal Medicine 08/31/20 07/03/23 documented as of this encounter
--- OUTSIDE RECORDS SUMMARY | 2023-10-06 00:43 | XMS_ITS | Encounter Summary ---
[place] [address] Care Team Providers Care Flap Maker Name Role Phone Alo Carey DO Primary Care Provider [phone] Reason for Visit * Consultation (Routine) - Closed Specialty Diagnoses / Procedures Referred By Marques livingston Referred To Contact Gastroenterology Diagnoses Other specified diseases of pancreas Procedures Consult Alo Carey DO [address] [place] [address] [place] [address] [facility] [address] [place] [address] Referral ID Status Reason Start Date Expiration Date Visits Re quested Visits Authorized [id number] Closed 02/10/2021 02/10/2022 1 1 Encounter Details Date Type Department Care Team (Latest Contact Info) Description 04/04/2021 10:30 AM EST TH Visit (TeleHealth) [place] [phone] Shurti Rao PA [facility] [place] [address] Pancreatic abnormality Social History Tobacco Use Types Packs/Day Years [...] as of this encounter Progress Notes * Shruti Rao PA - 04/04/2021 10:30 AM EST Images from the original note were not included. GASTROENTEROLOGY TELEHEALTH PROGRAM - NEW PATIENT VISIT Chief Complaint: Wero Sadler is a 71 y.o. patient referred for consultation by Dr. Carey for abnormal imaging History of Present Illness: 71-year-old gentleman referred to gastroenterology for abnormal imaging performed at an outside institution. CT scan was performed due to his history of prostate cancer. 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 There was mild dilation of the pancreatic duct. There was also an indeterminate focal liver lesion and a thick walled distal esophagus. He did havean MRI of his abdomen where the lesion appeared to be related to fatty infiltration. He did have anEGD at his local hospital which he tells me revealed esophagitis Patient has a history of prostate cancer and is planning for radiation in the upcoming weeks/months. He was first diagnosed in June 2020 while living in [place] He has been on Plavix for years He had a CABG in 2019 He denies abdominal pain, nausea or vomiting Bowel pattern remains stable Weight stable, some weight gain around midsection Appetite stable He was waiting on a right hip replacement which has been delayed due to prostate cancer diagnosis. This has caused him to have decrease mobility His in May 2020 He had colon cancer 13 years ago status post resection He is up to date for colonoscopies Review of systems: 14-point review of systems reviewed and negative except as above. Medications: ??? pantoprazole EC (Protonix) 40 mg Tablet, Delayed Release (E.C.) ??? carvediloL (Coreg) 25 mg Tablet ??? glimepiride (Amaryl) 1 mg Tablet ??? atorvastatin (Lipitor) 40 mg Tablet ??? clopidogreL (Plavix) 75 mg Tablet ??? metFORMIN (FORTAMET) 500 mg Tablet Extended Rel 24 hr ??? amLODIPine (Norvasc) 10 mg Tablet ??? aspirin EC 81 mg Tablet, Delayed Release (E.C.) ??? fish oil-omega-3 fatty acids 1,000 mg Capsule Allergies: is allergic to other [unclassified drug]. 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 Past Surgical History: has a past surgical history that includes Carotid- subclavian Bypass Graft (Bilateral, 2017, 2018); Cardiac surgery (12/03/2018); Femoral-tibial Bypass Graft (Left, 12/2017); Carotid endarterectomy; joint replacement; Total Hip Arthroplasty (24563) (Left, 10/10/2020); and Laser V aporization Surgery Prostate, Complete (94742) (Midline, 02/02/2021). 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 While living in [place] he was diagnosed with prostate cancer. After moving back to [place] he discussed this with his PCP who referred himto radiation oncology and he is currently undergoing treatment for prostate cancer with plans for radiation in the upcoming weeks/months. As part of his evaluation he had CT scan which revealed abnormality in the esophagus, pancreas and liver prompting an MRI. MRI revealed fatty infiltration of theliver but did not raise any concerns regarding liver lesion. He also had a EGD per his report which was negative with the exception of mild esophagitis. We spent time today discussing his pancreatic abnormalities including the best test to further evaluate his pancreas. We discussed proceeding with an EUS plus or minus ERCP. We also discussed potential biopsy at the time of EUS if indicated. He is leaving for [place] on Saturday but will be home at the end of the month and will plan to proceed with endoscopic evaluation at that time. Patient is on Plavix and he will need to discuss holding this with his prescribing provider Endoscopic ultrasound (EUS) is a minimally invasive procedure to assess for gastrointestinal diseases. This combines an esophagogastroduodenoscopy (EGD) with an ultrasound. A special endoscope uses high-frequency sound waves to produce detailed images of the lining and delatorre of your digestive tractand nearby organs such as the pancreas and liver, and lymph nodes. Adverse events associated with EUS include but are not limited to sedation adverse events, perforation and bleeding. Data suggests that risk of perforation with EUS is similar to standard endoscopy which is estimated to be approximately 0.03%. Fine needle aspiration (FNA) is performed to obtain tissue from masses or lymph nodes, as well as to aspirate the contents of cystic structures for analysis. Therapeutic procedures can also be performed injecting alcohol, corticosteroids or anesthetic agents to achieve celiac plexus blockade. FNA carries possible additional adverse events such as intraluminal bleeding, bacteremia, though a rare occurrence and pancreatitis. Your physician may or may not prescribe antibiotics after your procedure, prophylactically. Iatrogenic pancreatitis as a result of EUS/FNA may arise in patients undergoing FNA of pancreatic masses, cysts or the pancreatic duct. Reported rates of pancreatitis associated with EUS/FNA ranges from 0% to 2%. Adverse events associated with celiac plexus block include transient diarrhea (4%-15%), transient orthostasis (1%), transient increase in pain (9%) and abscess formation. Endoscopic retrograde cholangiopancreatography (ERCP) is a technique that combines the use of endoscopy and fluoroscopy (x-ray) to diagnose and treat certain problems of the biliary or pancreatic ductal systems. Adverse events associated with ERCP include but are not limited to sedation adverse events and post-ERCP pancreatitis (PEP). Overall incidence of PEP is estimated to be 3%- 10%. Patient related risk factors of PEP include prior PEP, female sex, younger patient age and a history of acute recurrent pancreatitis. Pharmacological prophylaxis for PEP may be administered by the physician after completion of ERCP. Bleeding is an adverse event with ERCP and is most commonly the result of endoscopic biliary and/or pancreatic sphincterotomy. The rate of postsphincterotomy bleeding after ERCPis estimated to be 0.3% to 2%. Infectious adverse events associated with ERCP include cholangitis, occurring up to 0.5% to 3% of cases. ERCP is the endoscopic modality of choice for the treatment of a cute cholangitis. Duodenal perforation during ERCP is approximately 0.08% to 0.6%. All of Weor Sadler questions were answered today. CASA Chapman [facility] [place] [address] documented in this encounter Plan of Treatment Upcoming Encounters Date Type Department Care Team (Late st Contact Info) Description 10/11/2023 10:00 AM EDT Tech [place] [address] Giacomo Queen 10/11/2023 11:15 AM EDT Office Visit [place] [address] Basim Barr MD [facility] [place] [address] 10/18/2023 9:00 AM EDT Office Visit Hematology/Oncology at [address] [phone] Cl Hess MD [facility] [place] [address] Yessi Renee APRN [address] [place] [address] DR HEMATOLOGY AND ONCOLOGY [place], [place] [id number] 10/18/2023 9:30 AM EDT Infusion Hematology Oncology at [address] [phone] 10/24/2023 9:30 AM EDT Scheduled View Only Radiation Oncology at [address] [phone] St La Nena Champagne 10/24/2023 10:00 AM EDT Office Visit Radiation Oncology at [address] [phone] Bigg Peters MD [address] [place] [address] DR RADIATION ONCOLOGY [place], [place] [id number] 11/01/2023 9:00 AM EDT Office Visit Hematology/Oncology at [address] [phone] Cl Hess MD [facility] [place] [address] Yessi Renee APRN [address] [place] [address] DR HEMATOLOGY AND ONCOLOGY [place], [place] [id number] 11/01/2023 9:30 AM EDT Infusion Hematology Oncology at [address] [phone] 12/24/2023 1:00 PM EDT TH Visit (TeleHealth) Radiation Oncology at [address] [phone] Ping Moore PA [facility] DR [place] [address] documented as of this encounter Visit Diagnoses Diagnosis Pancreatic abnormality documented in this encounter Care Teams Flap Maker Relationship Specialty Start Date End Date Alo Carey DO [address] [place] [address] [place] [phone] PCP - General Internal Medicine 08/31/20 07/03/23 documented as of this encounter
--- OUTSIDE RECORDS SUMMARY | 2023-10-06 00:43 | XMS_ITS | Encounter Summary ---
Author Organization [facility] [place] [address] Care Team Providers Care Director Of Business Services Name Role Phone Alo Carey DO Primary Care Provider [phone] Encounter Details Date Type Department Care Team (Late st Contact Info) Description 02/22/2021 [place] [phone] Shelly Burrell PA [facility] [place] [address] Social History Tobacco Use Types Packs/Day Years [...] encounter Miscellaneous Notes * Telephone Encounter - Shelly Burrell PA - 02/22/2021 10:42 AM EST Returned patient phone call. Call went to voicemail which was full and not accepting messages. Willtry to call back later. documented in this encounter Plan of Treatment Upcoming Encounters Date Type Department Care Team (Late st Contact Info) Description 10/11/2023 10:00 AM EDT Tech [place] [address] Giacomo Queen 10/11/2023 11:15 AM EDT Office Visit [place] [address] Basim Barr MD [facility] [place] [address] 10/18/2023 9:00 AM EDT Office Visit Hematology/Oncology at [address] [phone] Cl Hess MD [facility] [place] [address] Yessi Renee APRN [address] [place] [address] DR HEMATOLOGY AND ONCOLOGY [place], [place] [phone] 10/18/2023 9:30 AM EDT Infusion Hematology Oncology at [address] [phone] 10/24/2023 9:30 AM EDT Scheduled View Only Radiation Oncology at [address] [phone] St [facility] Champagne 10/24/2023 10:00 AM EDT Office Visit Radiation Oncology at [address] [phone] Bigg Peters MD [address] [place] [address] DR RADIATION ONCOLOGY [place], [place] 270733 [phone] 11/01/2023 9:00 AM EDT Office Visit Hematology/Oncology at [address] [phone] Cl Hess MD [facility] [place] [address] Yessi Renee APRN [address] [place] [address] DR HEMATOLOGY AND ONCOLOGY [place], [place] [phone] 11/01/2023 9:30 AM EDT Infusion Hematology Oncology at [address] [phone] 12/24/2023 1:00 PM EDT TH Visit (TeleHealth) Radiation Oncology at [address] [phone] Ping Moore PA [facility] DR HEMATOLOGY [place] [address] documented as of this encounter Visit Diagnoses Not on filedocumented in this encounter Care Teams Director Of Business Services Relationship Specialty Start Date End Date Alo Carey DO [address] [place] [address] [place] [phone] PCP - General Internal Medicine 08/31/20 07/03/23 documented as of this encounter
--- OUTSIDE RECORDS SUMMARY | 2023-10-06 00:44 | XMS_ITS | Encounter Summary ---
[place] [address] Care Team Providers Care Assistant Education Director Name Role Phone CherryAlo Lon RUTHERFORD Primary Care Provider [phone] Reason for Referral * Consultation (Routine) - Closed Specialty Diagnoses / Procedures Referred By Marques livingston Referred To Contact Neurology Diagnoses ASCVD (arteriosclerotic cardiovascular disease) Ismael Wu MD [facility] [place] [address] [facility] [address] [place] [phone] Referral ID Status Reason Start Date Expiration Date V isits Requested Visits Authorized [id number] Closed Consult, Test & Treat 11/17/2020 11/17/2021 1 1 Reason for Visit * Reason Comments Post Op 10/10/2020 LEFT JIMI Encounter Details Date Type Department Care Team (Latest Contact Info) Description 11/17/2020 1:30 PM EDT Office [place] [address] Ismael Wu MD [facility] [place] [address] Primary osteoarthritis of right hip (Primary Dx); ASCVD (arteriosclerotic cardiovascular disease); Right leg pain Social History Tobacco Use Types Packs/Day Years Used Date Smoking Tobacco: Former Cigarettes Q uit: 1992 Smokeless Tobacco: Never Alcohol Use Standard Drinks/Week Comments Yes 0 (1 standard drink = 0.6 oz pur e alcohol) Sex and Gender Information Value Date Recorded Sex Assigned at Not on file Gender Identity Not on file Sexual Orientation Not on file documented as of this encounter Last Filed Vital Signs Vital Sign Reading Time Taken Comments Blood Pressure 146/74 11/17/2020 1:12 PM EDT Pulse 68 11/17/2020 1:12 PM EDT Temperature - - Respiratory Rate - - Oxygen Saturation - - Inhaled Oxygen Concentration - - Weight 114.8 kg (253 lb 1.4 oz) 11/17/2020 1:12 PM EDT Height 180.3 cm (5' 10.98) 11/17/2020 1:12 PM E DT Body Mass Index 35.31 11/17/2020 1:12 PM EDT documented in this encounter Progress Notes * Deon Sawant MD - 11/17/2020 1:30 PM EDT Images from the original note were not included. Department of Orthopaedics Division of Adult Joint Reconstructive Surgery CHIEF COMPLAINT: Chief Complaint Patient presents with ??? Post Op 10/10/2020 LEFT JIMI ARTHROPLASTY/ORTHOPAEDIC HISTORY: 1: Bilateral total knee arthroplasties done at outside hospital 2: Left total hip arthroplasty done through posterior approach with Dr. Wu on 10/10/2020 HPI: Wero Sadler is a very pleasant 70 y.o. year-old male who presents for a 1 month follow-up for his left total hip arthroplasty. The patient has been doing extremely well. He is not taking any pain medication whatsoever. He is ambulating without any assistive devices. He states that all the pain he had before surgery is completely resolved. He did have some issues with postsurgical pain within 4 to 5 days after surgery, although this has completely resolved. He is very happy at this point time with his surgery and is doing all the activities he would like to do. He is interested in undergoing a total hip arthroplasty on the right side and would like to do this within the next several weeks as he states he is getting ready to head to [place] for the winter. Wero dnies fevers, chills, night sweats, nausea, or vomiting. Medications 11/17/20 1312 Medication Sig Taking? tamsulosin (Flomax) 0.4 mg Capsule Take 1 capsule by mouth daily. Yes atorvastatin (Lipitor) 40 mg Tablet Daily. Yes clopidogreL (Plavix) 75 mg Tablet clopidogrel 75 mg tablet Yes metFORMIN (GLUCOPHAGE) 1,000 mg Tablet Take 1,000 mg by mouth 2 times daily (with meals). Yes carvediloL (Coreg) 12.5 mg Tablet Take 12.5 mg by mouth 2 times daily (with meals). Yes amLODIPine (Norvasc) 10 mg Tablet Take 10 mg by mouth daily. Yes aspirin EC 81 mg Tablet, Delayed Release (E.C.) Take 81 mg by mouth daily. Yes fish oil-omega-3 fatty acids 1,000 mg Capsule Take 2 g by mouth daily. Yes oxyCODONE (Roxicodone) 5 mg Tablet Take 1-2 tablets by mouth every 4 hours as needed for Pain (acute post-op surgical pain). Patient not taking: Reported on 11/17/2020 acetaminophen (Tylenol) 500 mg Tablet Take 2 tablets by mouth every 8 hours. Continue the Tylenol around the clock for 10 days after surgery, (10/20/2020). Then may take if needed per package insert. Do not take more than 3,000 mg of Tylenol in 24 hours. Patient not taking: Reported on 11/17/2020 polyethylene glycoL (Miralax) 17 gram Powder in Packet Take 17 g by mouth 2 times daily. Patient not taking: Reported on 11/17/2020 senna-docusate (Pericolace) 8.6-50 mg Tablet Take 2 tablets by mouth 2 times daily. Patient not taking: Reported on 11/17/2020 Allergies Allergen Reactions ??? Other [Unclassified Drug] Had reaction to a dye used during vascular procedure at [facility] in [place] SIGNIFICANT MEDICAL COMORBIDITIES: Patient Active Problem List Diagnosis Code ??? Colorectal cancer C19 ??? Diabetes mellitus E11.9 ??? Hypercholesterolemia E78.00 ??? Hypertensive disorder I10 ??? ASCVD (arteriosclerotic cardiovascular disease) I25.10 ??? Primary osteoarthritis of left hip M16.12 ??? s/p L JIMI, posterior, Dr. Wu, 10/10/20 Z96.642 ??? Postoperative urinary retention N99.89, R33.8 QUESTIONNAIRE RESPONSES: [facility] Followup Visit 11/17/2020 PROMIS-10 General Health Very Good PROMIS-10 Quality of Life Good PROMIS-10 Physical Health Very Good PROMIS-10 Mental Health Good PROMIS-10 Social Activity Good PROMIS-10 Everyday Activities Moderately PROMIS-10 Pain 2 PROMIS-10 Fatigue Moderate PROMIS-10 Social Roles Very Good PROMIS-10 Anxious or Depressed Never PROMIS PHYSICAL HEALTH SCORE (range 16-68) 44.9 PROMIS MENTAL HEALTH SCORE (range 21-68) 48.3 HOOS JR Scores 100 Gone to ER since surgery No Admitted to hospital since recent ortho surgery No Additional surgery on same body part No Satisfaction with Treatment Satisfied Choose Same Treatment Again Definitely yes JIMI Grade 9 Pain in other HIP Moderate Back pain at this moment None Orthopeadics [facility] Response 11/17/2020 HOOS JR Scores 100 Spine [facility] Response 11/17/2020 HOOS JR Scores 100 PHYSICAL EXAM: Vitals: 11/17/20 1312 BP: 146/74 Pulse: 68 Weight: 114.8 kg (253 lb 1.4 oz) Height: 180.3 cm (5' 10.98) Well-appearing male in no acute distress. Alert and Oriented x 3 and answers all questions appropriately. The incision is well healed, with no signs of infection. There are several areas of erythema and suspected sites of Vicryl stitch knots, there is no purulence or erythema at these locations. Hip Exam: Left Leg Length: Longer leg: left Limb Length discrepancy: 0.5cm Motion: Flexion contracture: 0 Total degrees of Flexion: 100 Total degrees of Abduction: 30 Total degrees of Ext Rotation: 35 Total degrees of Internal Rotation: 10 Gait Abnormality: Normal Pulses Palpable: Left PT: Yes Left DP: Yes Motor/Sensory: Left Distal Motor: Normal Distal Sensory: Normal Hip Abductors: 5 Trendelenburg test: negative IMAGING: Multiple radiographic views were obtained and reviewed with the Wero. X-rays show a well-placed prosthesis with no evidence of fracture, subsidence, loosening, or periprosthetic complication. ASSESSMENT AND PLAN: Mr. Sadler is a 70 y.o. year old male 5 weeks post-op and doing well. Continue weightbearing as tolerated and working on range of motion. We had a discussion with the patient today regarding continued mobilization on the left hip. We also discussed total hip arthroplasty on the right hip, we will work with the schedulers to get this procedure set up in an attempt to complete it before he heads [facility] for the winter. All questions were answered. Signed: Deon Sawant MD 11/17/2020 Department of Orthopaedics Division of Adult Joint Reconstructive Surgery November 17, 2020 I had the pleasure of evaluating Wero Sadler in clinic in conjunction with Dr. Sawant. I have seen and examined the patient and reviewed the history/physical and I agree with the details as written. The assessment and plan were formulated in discussion with me and I agree with them as documented. I saw the patient today in follow-up. He is about 5 weeks out from his left total hip and extremelysatisfied with it. He is not having any pain. The incision has healed up beautifully. He is weightbearing as tolerated and is not requiring any pain medicines. The patient has arthritis in his contralateral hip and he he is interested in proceeding with right total hip arthroplasty. We have discussed doing simultaneous bilateral total hips but had ultimately decided to take them 1 step at a time given his heart condition and use of Plavix. I discussed the risks benefits and alternatives of hip replacement in brief given that we have gone through this in great detail during prior discussions. The patient understood the risks and benefits as outlined below and wished to proceed electively with the surgery. I will put in a booking order and have this booked as expeditiously as possible. The nature and purpose of the total [...] may still be persistent pain or disability. The patient was informed that the success [...] he is interested in proceeding with surgery. We will try to set this up as expeditiously as possible. PLAN: - RIGHT JIMI, posterior, [facility] [place] Ismael Wu MD, MSc Division of Adult Reconstructive Senior Health EducatorPut In Beat Adjuster of Orthopaedics Department of Orthopaedics [facility] [place] [facility] [place] [phone] [email or web address] documented in this encounter Plan of Treatment Upcoming Encounters Date Type Department Care Team (Late st Contact Info) Description 10/11/2023 10:00 AM EDT Tech [place] [address] Giacomo Queen 10/11/2023 11:15 AM EDT Office [place] [address] Basim Barr MD [facility] DR VASCULAR SURGERY [place] [phone] 10/18/2023 9:00 AM EDT Office Visit Hematology/Oncology at [address] [phone] Cl Hess MD [facility] [place] [address] Yessi Renee, [address] HEMATOLOGY AND ONCOLOGY [place], [place] [address] 10/18/2023 9:30 AM EDT Infusion Hematology Oncology at [address] [phone] 10/24/2023 9:30 AM EDT Scheduled View Only Radiation Oncology at [address] [phone] Rad Nurse, [facility] 10/24/2023 10:00 AM EDT Office Visit Radiation Oncology at [address] [phone] Bigg Peters MD [address] [place] [address] DR RADIATION ONCOLOGY [place], [place] [address] 11/01/2023 9:00 AM EDT Office Visit Hematology/Oncology at [address] [phone] Cl Hess MD [facility] [place] [address] Yessi Renee [address] HEMATOLOGY AND ONCOLOGY [place], [place] [address] 11/01/2023 9:30 AM EDT Infusion Hematology Oncology at [address] [phone] 12/24/2023 1:00 PM EDT TH Visit (TeleHealth) Radiation Oncology at [address] [phone] Ping Moore PA [facility] DR HEMATOLOGY [place] [address] Scheduled Referrals Name Type Priority Associated Diagnoses Orde r Schedule Referral to Neurology Outpatient Referral Routine ASCVD (arteriosclerotic cardiovascular disease) Ordered: 11/17/2020 documented as of this encounter Results * APTT (05/04/2021 11:34 AM EST) Partial Thromboplastin Time 29 25 - 37 sec [facility] Comment: The PTT is NOT appropriate for heparin monitoring. Use the Anti-Xa level for heparin monitoring (HEP UFH) or LMWH monitoring (HEP LMW). A PTT less than 37 seconds generally indicates adequate hemostasis. Blood 05/04/2021 11:3 4 AM EST 05/04/2021 11:46 AM EST Narrative Resulting Agency Comment Spec In Lab Ismael Wu MD HEMATOLOGY ORDERABL ES [facility] [place] [address] * Prothrombin Time (05/04/2021 11:34 AM EST) Prothrombin Time 11.2 9.4 - 12.5 sec [facility] International Normalization Ratio 1.0 [facility] Comment: An INR <2.0 indicates [...] Lab Ismael Wu MD HEMATOLOGY ORDERABL ES [facility] [place] [address] * Basic Metabolic Panel (non-fasting) (05/04/2021 11:34 AM EST) Glucose 178 65 - 199 mg/dL [facility] Comment:Diabetes: >=200 mg/d L plus symptoms Blood Urea Nitrogen 19 10 - 20 mg/dL [facility] Creatinine 0.84 0.80 - 1.50 mg/dL [facility] Sodium 140 135 - 145 mmol/L [facility] Potassium 4.6 3.5 - 5.0 mmol/L [facility] Comment: Please note: ??Patients with WBC >100,000 may have falsely elevated Potassium levels. ??For accurate Potassium quantification in these patients send serum separator tube (gold top) for subsequent determinations. ??Contact the Clinical Chemistry Laboratory if there are any questions. Chloride 104 98 - 107 mmol/L [facility] Carbon Dioxide 25 22 - 31 mmol/L [facility] Anion Gap 11 5 - 15 mmol/L [facility] Calcium 9.7 8.5 - 10.5 mg/dL [facility] Est Glomerular Filtration Rate 87 >=60 mL/min/1. 73 m?? [facility] Comment: This patient? s estimated [...] Lab Ismael Wu MD CHEMISTRY ORDERABLE S [facility] [place] [address] documented in this encounter Visit Diagnoses Diagnosis Primary osteoarthritis of right hip- Primary Primary localized osteoarthrosis, pelvic region and thigh ASCVD (arteriosclerotic cardiovascular disease) Unspecified cardiovascular disease Right leg pain Pain in limb documented in this encounter Care Teams Assistant Education Director Relationship Specialty Start Date End Date Alo Carey DO [address] [place] [address] [place] [address] PCP - General Internal Medicine 08/31/20 07/03/23 documented as of this encounter
--- OUTSIDE RECORDS SUMMARY | 2023-10-06 00:44 | XMS_ITS | Encounter Summary ---
Author Organization [facility] Address [facility] [address] Care Team Providers Care Media Analyst Name Role Phone Alo Carey DO Primary Care Provider Reason for Visit * Reason Onset Date Comments Pre Procedure Call 12/02/2020 Encounter Details Date Type Department Care Team (Late st Contact Info) Description 12/02/2020 Telephone [place] [address] Ismael Wu MD [facility] [place] [address] Pre Procedure Call Social History Tobacco Use [...] * Telephone Encounter - Margarita Echevarria - 12/14/2020 1:32 PM EDT We called to leave a message to schedule surgery with Dr Wu on 01/06/21, but his voicemail box is full. Sent an electronic letter to patient to call us to schedule. * Telephone Encounter - Margarita Echevarria - 12/02/2020 4:04 PM EDT We called to leave a message to schedule surgery with Dr Wu on 02/23/21, but his voicemail box is full. documented in this encounter Plan of Treatment Upcoming Encounters Date Type Department Care Team (Late st Contact Info) Description 10/11/2023 10:00 AM EDT Tech [place] [phone] Giacomo Queen 10/11/2023 11:15 AM EDT Office Visit [place] [phone] Basim Barr MD [facility] [place] [address] 10/18/2023 9:00 AM EDT Office Visit Hematology/Oncology at [address] [phone] Cl Hess MD [facility] [place] [address] Yessi Renee APRN [address] [place] [address] DR HEMATOLOGY AND ONCOLOGY [place], [place] [phone] 10/18/2023 9:30 AM EDT Infusion Hematology Oncology at [address] [phone] 10/24/2023 9:30 AM EDT Scheduled View Only Radiation Oncology at [address] [phone] St [facility] Champagne 10/24/2023 10:00 AM EDT Office Visit Radiation Oncology at [address] [phone] Bigg Peters MD [address] [place] [address] [place] [address] 11/01/2023 9:00 AM EDT Office Visit Hematology/Oncology at [address] [phone] Cl Hess MD [facility] [place] [address] Yessi Renee APRN [address] [place] [address] DR HEMATOLOGY AND ONCOLOGY [place], [place] [address] 11/01/2023 9:30 AM EDT Infusion Hematology Oncology at [address] [phone] 12/24/2023 1:00 PM EDT TH Visit (TeleHealth) Radiation Oncology at [address] [phone] Ping Moore PA [facility] DR [place] [address] documented as of this encounter Visit Diagnoses Not on filedocumented in this encounter Care Teams Media Analyst Relationship Specialty Start Date End Date Alo Carey DO [address] [place] [address] [place] [phone] PCP - General Internal Medicine 08/31/20 07/03/23 documented as of this encounter
--- OUTSIDE RECORDS SUMMARY | 2023-10-06 00:44 | XMS_ITS | Encounter Summary ---
[place] [address] Care Team Providers Care Wrapper Sorter Name Role Phone Alo Carey DO Primary Care Provider [phone] Encounter Details Date Type Department Care Team (Late st Contact Info) Description 01/16/2021 Ancillary Procedure [place] [phone] Alo Carey DO [address] [place] [address] [place] [phone] Social History Tobacco Use Types Packs/Day Years [...] AM EDT Tech [place] [address] Giacomo Queen 10/11/2023 11:15 AM EDT Office [place] [address] Basim Barr MD [facility] [place] [address] 10/18/2023 9:00 AM EDT Office Visit Hematology/Oncology at [address] [phone] Cl Hess MD [facility] [place] [address] Yessi Renee [address] HEMATOLOGY AND ONCOLOGY [place], [place] [address] 10/18/2023 9:30 AM EDT Infusion Hematology Oncology at [address] [phone] 10/24/2023 9:30 AM EDT Scheduled View Only Radiation Oncology at [address] [phone] Rad Nurse, [facility] 10/24/2023 10:00 AM EDT Office Visit Radiation Oncology at [address] [phone] Bigg Peters MD [address] [place] [address] DR RADIATION ONCOLOGY [place], [place] [address] 11/01/2023 9:00 AM EDT Office Visit Hematology/Oncology at [address] [phone] Cl Hess MD [facility] [place] [address] Yessi Renee [address] HEMATOLOGY AND ONCOLOGY [place], [place] [address] 11/01/2023 9:30 AM EDT Infusion Hematology Oncology at [address] [phone] 12/24/2023 1:00 PM EDT TH Visit (TeleHealth) Radiation Oncology at [address] [phone] Ping Moore PA [facility] HEMATOLOGY [place] [address] documented as of this encounter Procedures Procedure Name Priority Date/Time Associated Diagnosis Comments FILM LIBRARY STORAGE ONLY MR ABDOMEN Routine 01/16/2021 12:00 AM EST documented in this encounter Results * Film Library- Storage Only MR Abdomen (01/16/2021 12:00 AM EST) Narrative [facility] - 02/09/2021 11:34 AM EST This exam is auto-finalizing. It's purpose is for storage only. Alo Carey DO [facility] FILM LIBRARY ORD ERABLES Performing Organization Address City/State/[facility] Co de Phone Number [place], [place] documented in this encounter Visit Diagnoses Not on filedocumented in this encounter Care Teams Wrapper Sorter Relationship Specialty Start Date End Date Alo Carey DO [address] [place] [address] [place] [phone] PCP - General Internal Medicine 08/31/20 07/03/23 documented as of this encounter
--- OUTSIDE RECORDS SUMMARY | 2023-10-06 00:44 | XMS_ITS | Encounter Summary ---
Author Organization [facility] Address [facility] [place] [address] Care Team Providers Care Dealer Card Room Name Role Phone Alo Carey DO Primary Care Provider Encounter Details Date Type Department Care Team (Latest Contact Info) Description 10/06/2020 3:00 PM EDT Office [place] [address] Ismael Wu MD [facility] [place] [address] Primary osteoarthritis of left hip Social History Tobacco Use Types Packs/Day [...] as of this encounter Progress Notes * Lor Chirinos RN - 10/06/2020 3:00 PM EDT Arthroplasty History/Previous Orthopaedic Surgery: 1. RIGHT TKA, OSH This note is recorded by Lor Chirinos RN acting as a scribe for Dr. Malaika Wu. PREOPERATIVE VISIT Interval History: Wero Sadler is a pleasant 70 y.o. year old male being seen today to discuss a left total hip replacement. His history was once again discussed and is outlined in a previous note. They have reviewed their options and at this point are expressing a desire to proceed with surgery. Physical Exam: Exam is previously documented in a note and is essentially unchanged. Hip Exam: Clinical Leg Length Discrepancy - 0 cm Inspection of his skin on the operative side demonstrates No skin breakdown or open wounds. Significant Medical Comorbidities There is no problem list on file for this patient. VITALS: BP Readings from Last 1 Encounters: 10/06/20 156/88 Pulse Readings from Last 1 Encounters: 10/06/20 72 There is no height or weight on file to calculate BMI. Relevant Lab Studies Lab Results Component Value Date WBC 6.1 10/06/2020 HGB 14.7 10/06/2020 HCT 43.3 10/06/2020 PLATELET 190 10/06/2020 INR 1.0 10/06/2020 No results for input(s): HA1C in the last 7068 hours. No results for input(s): ALBUMIN in the last 168 hours. CrCl cannot be calculated (No successful lab value found.). TJA Clotting and Bleeding Assessment Genetic predisposition or history of DVT or PE: No Hypercoaguable state?: No History of bleeding disorder?: No GI bleed or history of hemorrhagic stroke within the past 2 years: No Patient on lifelong anticoagulant for other reasons: Yes, for TIAs Discharge anticoagulation plan: Other (comment) (Home Routine) Infection Prevention Patient demonstrated appropriate skin integrity/infection knowledge level after instructions provided: Yes Patient demonstrated appropriate dental prophylaxis knowledge level after instructions provided: Yes Patient demonstrated appropriate understanding of chlorhexideine wash and mupirocin ointment: Yes General Assessment Total joint preparedness for surgery: Received binder, 1:1 Patient understands when to call the office pre-op and post-op: Verbalizes understanding Assistive device(s) used pre-op: Straight cane Patient currently on narcotics: No Patient has narcotic agreement signed: No Assessment and Plan: This is a pleasant 70 y.o. year-old male who presents for a preoperative appointment today for consideration of a left total hip replacement. We had a discussion regarding the risks and benefits of surgery. I indicated that in my opinion, this is a treatment option most likely to restore a more normal, pain- free level of function and that we have exhausted reasonable non-operative alternatives. Idiscussed how I perform the procedure and all [...] for scanning to chart. Opioid Risk Assessment 10/06/2020 DAST-10 Risk Assessment None (0) Opioid PDMP 10/06/2020 [place] PDMP Query Date 10/06/2020 [place] PDMP Query Date 10/06/2020 [place] PDMP Query Date 10/06/2020 In addition to this medication, non-opioid [...] where referrals are placed [place] lives in [place], no preference on VNA. Prep for Surgery Advance Directive: Has one (will bring in copy) Recommend referral to Patient Financial Services: (P) No Living arrangement: (P) House Home layout: (P) Two level, Able to live on main level Number of stairs within home: (P) 13 Who will provide post-op care and support: (P) Brother and [id number] (Damian Sadler and Yaquelin) Who will provide transportation home: (P) Brother (Damian Sadler) Patient's desired discharge disposition: (P) Home with VNA Top 3 nursing choice facilities: (P) None VNA preference: (P) TBD Outpatient PT preference: (P) [facility] PT Discharge barriers and challenges: (P) None The patient prefers two-wheeled walker to help with post-operative ambulation. The patient has a walker and will bring it to surgery. Recommendations from Dr. Mai: Pending Note Post operative orthopaedic anti-coagulation plan: Plavix 75mg Chronic anti-coagulation: yes, for stent placement Does patient have metal allergy? No Expedited Discharge Candidate?: NO We discussed using Celebrex while in house. Upon discharge we will give the patient Naprosyn to take for 6 weeks after surgery for post-operative pain management. Any remaining questions were solicited from the patient and answered. Mr. Sadler wishes to proceed accordingly and informed consent was subsequently obtained for a left total hip replacement. I have personally evaluated [...] important for this specific patient: These include medical complications after surgery . The patient was informed that the success [...] in proceeding with surgery. Malaika Wu MD 10/06/2020 documented in this encounter Plan of Treatment Upcoming Encounters Date Type Department Care Team (Late st Contact Info) Description 10/11/2023 10:00 AM EDT Tech [place] [address] Giacomo Queen 10/11/2023 11:15 AM EDT Office [place] [address] Basim Barr MD [facility] [place] [address] 10/18/2023 9:00 AM EDT Office Visit Hematology/Oncology at [address] [phone] Cl Hess MD [facility] [place] [address] Yessi Renee [address] HEMATOLOGY AND ONCOLOGY [place], [place] [phone] 10/18/2023 9:30 AM EDT Infusion Hematology Oncology at [address] [phone] 10/24/2023 9:30 AM EDT Scheduled View Only Radiation Oncology at [address] [phone] Rad , [facility] 10/24/2023 10:00 AM EDT Office Visit Radiation Oncology at [address] [phone] Bigg Peters MD [address] [place] [address] DR RADIATION ONCOLOGY [place], [place] [id number] 11/01/2023 9:00 AM EDT Office Visit Hematology/Oncology at [address] [phone] Cl Hess MD [facility] [place] [address] [address] HEMATOLOGY AND ONCOLOGY [place], [place] [id number] 11/01/2023 9:30 AM EDT Infusion Hematology Oncology at [address] [phone] 12/24/2023 1:00 PM EDT TH Visit (TeleHealth) Radiation Oncology at [address] [phone] Ping Moore PA [facility] [place] [address] documented as of this encounter Visit Diagnoses Diagnosis Primary osteoarthritis of left hip Primary localized osteoarthrosis, pelvic region and thigh documented in this encounter Administered Medications Inactive Administered Medications - up to 3 most recent administrations Medication Order MAR Action Action Date Dose Rate Site mupirocin (BACTROBAN) 2 % ointment 1 each 1 each, Topical (Top), 2 TIMES DAILY, First dose on Ammy 10/06/20 at 1415, 10 doses, Last dose on 10/10/20 at 2100, Apply two times daily to nares for 5 days prior to surgery Given 10/06/2020 3:55 PM EDT 1 each documented in this encounter Care Teams Dealer Card Room Relationship Specialty Start Date End Date Alo Carey DO [address] [place] [address] [place] [phone] PCP - General Internal Medicine 08/31/20 07/03/23 documented as of this encounter
--- OUTSIDE RECORDS SUMMARY | 2023-10-06 00:44 | XMS_ITS | Encounter Summary ---
[place] [address] Care Team Providers Care Loom Operator Name Role Phone Alo Carey Primary Care Provider [phone] Reason for Referral * Diagnostic Test (Routine) - Closed Specialty Diagnoses / Procedures Referred By Marques t Referred To Contact Radiology Diagnoses Malignant neoplasm of prostate Procedures MRI Pelvis wwo (Prostate) Rock Myers MD [address] [place] [address] [place] [address] Referral ID Status Reason Start Date Expiration Date V isits Requested Visits Authorized [id number] Closed Specialty Service Requested 10/06/2020 04/08/2022 1 1 Reason for Visit * Diagnostic Test (Routine) - Closed Specialty Diagnoses / Procedures Referred By Marques livingston Referred To Contact Radiology Diagnoses Malignant neoplasm of prostate Procedures MRI Pelvis wwo (Prostate) Rock Myers MD [address] [place] [address] [place] [address] Referral ID Status Reason Start Date Expiration Date V isits Requested Visits Authorized [id number] Closed Specialty Service Requested 10/06/2020 04/08/2022 1 1 Encounter Details Date Type Department Care Team (Late st Contact Info) Description 11/17/2020 2:21 PM EDT - 11/17/2020 11:59 PM EDT Hospital [place] [address] Rock Myers MD [address] [place] [address] Malignant neoplasm of prostate Discharge Disposition: Home [...] (E.C.) Take 81 mg by mouth daily. tamsulosin (Flomax) 0.4 mg Capsule Take 1 capsule by mouth daily. 14 tablet 10/13/2020 02/03/2021 oxyCODONE (Roxicodone) 5 mg Tablet Take 1-2 tablets by mouth every 4 hours as needed for Pain (acute post-op surgical pain). 25 tablet 10/11/2020 04/04/2021 acetaminophen (Tylenol) 500 mg Tablet Take 2 tablets by mouth every 8 hours. Continue the Tylenol around the clock for 10 days after surgery, (10/20/2020). Then may take if needed per package insert. Do not take more than 3,000 mg of Tylenol in 24 hours. 10/11/2020 01/27/2021 polyethylene glycoL (Miralax) 17 gram Powder in Packet Take 17 g by mouth 2 times daily. 10/11/2020 01/27/2021 senna-docusate (Pericolace) 8.6-50 mg Tablet Take 2 tablets by mouth 2 times daily. 10/11/2020 01/20/2021 atorvastatin (Lipitor) 40 mg Tablet Daily. 07/17/2021 clopidogreL (Plavix) 75 mg Tablet daily. 08/17/2021 metFORMIN (FORTAMET) 500 mg Tablet Extended Rel 24 hr Take 1,000 mg by mouth 2 times daily (with meals). 06/07/2023 carvediloL (Coreg) 12.5 mg Tablet Take 12.5 mg by mouth 2 times daily (with meals). 01/20/2021 amLODIPine (Norvasc) 10 mg Tablet Take 5 mg by mouth daily. 11/18/2021 fish oil-omega-3 fatty acids 1,000 mg Capsule Take 1 g by mouth daily. 11/18/2021 documented as of this encounter Plan of Treatment Upcoming Encounters Date Type Department Care Team (Late st Contact Info) Description 10/11/2023 10:00 AM EDT Tech [place] [phone] Giacomo Queen 10/11/2023 11:15 AM EDT Office Visit [place] [phone] Basim Barr MD [facility] [place] [address] 10/18/2023 9:00 AM EDT Office Visit Hematology/Oncology at [address] [phone] Cl Hess MD [facility] [place] [address] Yessi Renee APRN [address] [place] [address] DR HEMATOLOGY AND ONCOLOGY [place], [place] [id number] 10/18/2023 9:30 AM EDT Infusion Hematology Oncology at [address] [phone] 10/24/2023 9:30 AM EDT Scheduled View Only Radiation Oncology at [address] [phone] St La Nena Champagne 10/24/2023 10:00 AM EDT Office Visit Radiation Oncology at [address] [phone] Bigg Peters MD [address] [place] [address] DR RADIATION ONCOLOGY [place], [place] [phone] 11/01/2023 9:00 AM EDT Office Visit Hematology/Oncology at [address] [phone] Cl Hess MD [facility] [place] [address] Yessi Renee APRN [address] [place] [address] DR HEMATOLOGY AND ONCOLOGY [place], [place] [phone] 11/01/2023 9:30 AM EDT Infusion Hematology Oncology at [address] [phone] 12/24/2023 1:00 PM EDT TH Visit (TeleHealth) Radiation Oncology at [address] [phone] Ping Moore PA [facility] DR HEMATOLOGY [place] [address] documented as of this encounter Procedures Procedure Name Priority Date/Time Associated Diagnosis Comments MRI PELVIS WWO (PROSTATE) Routine 11/17/2020 3:29 PM EDT Malignant neoplasm of prostate documented in this encounter Results * MRI Pelvis wwo (Prostate) (11/17/2020 3:29 PM EDT) Anatomical Region Laterality Modality Pelvis Magnetic Resonan ce Impressions 11/18/2020 9:54 AM EDT Lesion 1 PZ: PI-RADS 4. Clinically significant cancer is likely to be present. T2 location: axial series 10, image 24; sagittal ??series 4, image 11. Lesion 2 TZ: PI-RADS 5. Clinically significant cancer is highly likely to be present. T2 location: axial series 10, image 23; sagittal ??series 4, image 21. Segmented in UroNav. PI-RADS v2.1 Assessment Categories PI-RADS 1 -- Very low (clinically significant cancer is highly unlikely to be present) PI-RADS 2 -- Low (clinically significant cancer is unlikely to be present) PI-RADS 3 -- Intermediate (the presence of clinically significant cancer is equivocal) PI-RADS 4 -- High (clinically significant cancer is likely to be present) PI-RADS 5 -- Very high (clinically significant cancer is highly likely to be present) References: Medunia S1, Sumanth JH1, Brenner S1, Balbuena C1, Arthur J1, Czarniecki M1, Gold S1, James G1, Raychantal K1, Artur MJ1, Sam BJ1, Nora PA1, Kat PL1, Clifford B1. ??A Grading System for the Assessment of Risk of Extraprostatic Extension of Prostate Cancer at Multiparametric MRI. Radiology. 2019 Mar;290(3):709-719. doi: 10.1148/radiol.3266532182. Epub 2018Mar 25. I have personally reviewed the image(s) and the resident's interpretation and agree with the findings, Madan Angel MD at 11/18/2020 9:54 AM Thank you for letting us participate in the care of this patient. ??If you are a health care provider and have any questions regarding this report, please contact the number below. ??For patients who have questions please contact the health career guidance counselor that requested your imaging first. ? Narrative 11/18/2020 9:54 AM EDT EXAMINATION: MRI PELVIS WWO (PROSTATE) CLINICAL HISTORY: Carcinoma of prostate. Reviewed medical record indicates prostate cancer in 2/12 biopsies. REASON FOR PROSTATE EXAM: Prostate cancer, elevated PSA HAS PATIENT HAD PREVIOUS BIOPSY?:Yes MOST RECENT PSA LEVEL:11.2 (INCAREEVERYWHERE) TECHNIQUE: Multiparametric MRI of the prostate prior to and following IV administration of 24 cc of Dotarem contrast. ?? QUALITY: Meets PI-RADS technical criteria. COMPARISON: None FINDINGS: Prostate dimensions: 5.1 x 5.3 x 3.6cm. Estimated prostate volume: 50.6cc (X x Y x Z x 0.52) PSA density: 0.22 (PSA/prostate volume >0.15 susp, 0.25 highly susp) Peripheral zone: Lesion 1. Posterior mid gland left peripheral zone. 1.1 cm in maximum axial dimension, and 1.0 cm in maximal sagittal dimension. T2: Noncircumscribed, rounded, moderate hypointensity. PI-RADs: 3. DWI: ??Moderately hypointense on ADC and moderately hyperintense on high b-value DWI. PI-RADs: 3. DCE-MRI: (+) focal early enhancement which corresponds to the suspicious finding on T2WI and DWI. ?? Combined PI-RADs: 4. Transition zone: Lesion 2. Anterior right TZ and AFMS of the mid gland. Measures 15 x 24 mm on axial images, 24 mm craniocaudal dimension. T2: Lenticular, homogeneous, moderately hypointense mass. PI-RADs: 5. DWI: ??Focal markedly hypointense on ADC and markedly hyperintense on high b-value DWI. PI-RADs: 5. DCE-MRI: ??(-) No early arterial enhancement. ? Combined PI-RADs: 5. Extraprostatic disease: Seminal vesicle involvement:No Lymphadenopathy:No Sphincter involvement:No Bladder involvement:No Osseous metastases: None. Left hip prosthesis. MRI-derived Extraprostatic extension risk (Lesion 2): Grade 1: 24.3% (Curvilinear contact length) Other findings: Degenerative changes at L5-S1. Procedure Note Madan Angel MD - 11/18/2020 EXAMINATION: MRI PELVIS WWO (PROSTATE) CLINICAL HISTORY: Carcinoma of prostate. Reviewed medical recordindicates prostate cancer in 2/12 biopsies. REASON FOR PROSTATE EXAM: Prostate cancer, elevated PSA HAS PATIENT HAD PREVIOUS BIOPSY?:Yes MOST RECENT PSA LEVEL:11.2 (INCAREEVERYWHERE) TECHNIQUE: Multiparametric MRI of the prostate prior to and following IV administration of 24 cc of Dotarem contrast. QUALITY: Meets PI-RADS technical criteria. COMPARISON: None FINDINGS: Prostate dimensions: 5.1 x 5.3 x 3.6cm. Estimated prostate volume: 50.6cc (X x Y x Z x 0.52) PSA density: 0.22 (PSA/prostate volume >0.15 susp, 0.25 highly susp) Peripheral zone: Lesion 1. Posterior mid gland left peripheral zone. 1.1 cm in maximumaxial dimension, and 1.0 cm in maximal sagittal dimension. T2: Noncircumscribed, rounded, moderate hypointensity. PI-RADs: 3. DWI: Moderately hypointense on ADC and moderately hyperintense on highb-value DWI. PI-RADs: 3. DCE-MRI: (+) focal early enhancement which corresponds to the suspiciousfinding on T2WI and DWI. Combined PI-RADs: 4. Transition zone: Lesion 2. Anterior right TZ and AFMS of the mid gland. Measures 15 x 24 mmon axial images, 24 mm craniocaudal dimension. T2: Lenticular, homogeneous, moderately hypointense mass. PI-RADs: 5. DWI: Focal markedly hypointense on ADC and markedly hyperintense onhigh b-value DWI. PI-RADs: 5. DCE-MRI: (-) No early arterial enhancement. Combined PI-RADs: 5. Extraprostatic disease: Seminal vesicle involvement:No Lymphadenopathy:No Sphincter involvement:No Bladder involvement:No Osseous metastases: None. Left hip prosthesis. MRI-derived Extraprostatic extension risk (Lesion 2): Grade 1: 24.3% (Curvilinear contact length) Other findings: Degenerative changes at L5-S1. IMPRESSION Lesion 1 PZ: PI-RADS 4. Clinically significant cancer is likely to bepresent. T2 location: axial series 10, image 24; sagittal series 4, image 11. Lesion 2 TZ: PI-RADS 5. Clinically significant cancer is highly likely tonia present. T2 location: axial series 10, image 23; sagittal series 4, image21. Segmented in UroNav. PI-RADS v2.1 Assessment Categories PI-RADS 1 -- Very low (clinically significant cancer is highly unlikely tonia present) PI-RADS 2 -- Low (clinically significant cancer is unlikely to bepresent) PI-RADS 3 -- Intermediate (the presence of clinically significant canceris equivocal) PI-RADS 4 -- High (clinically significant cancer is likely to bepresent) PI-RADS 5 -- Very high (clinically significant cancer is highly likely tonia present) References: Mehrselin S1, Sumanth JH1, Rbenner S1, Balbuena C1, Arthur J1, Czarniecki M1,Gold S1, James G1, Rayn K1, Artur MJ1, Wood BJ1, Nora PA1, Kat PL1, Clifford B1.A Grading System for the Assessment of Risk of Extraprostatic Extension of Prostate Cancer at Multiparametric MRI. Radiology. 2019Mar;290(3):709-719. doi: 10.1148/radiol.7383480663. Epub 2018Mar 25. I have personally reviewed the image(s) and the resident's interpretationand agree with the findings, Madan Angel MD at 11/18/2020 9:54 AM Thank you for letting us participate in the care of this patient. If youare a health care provider and have any questions regarding this report,please contact the number below. For patients who have questions please contactthe health career guidance counselor that requested your imaging first. Rock Myers MD IMG MRI ORDERABLES documented in this encounter Visit Diagnoses Diagnosis Malignant neoplasm of prostate documented in this encounter Care Teams Loom Operator Relationship Specialty Start Date End Date Alo Carey DO [address] [place] [address] [place] [phone] PCP - General Internal Medicine 08/31/20 07/03/23 documented as of this encounter
--- OUTSIDE RECORDS SUMMARY | 2023-10-06 00:44 | XMS_ITS | Encounter Summary ---
[place] [address] Care Team Providers Care Information Systems Consultant Name Role Phone CherryAlo Lon RUTHERFORD Primary Care Provider [phone] Reason for Visit * Consultation (Routine) - Closed Specialty Diagnoses / Procedures Referred By Marques livingston Referred To Contact Radiation Oncology Diagnoses Malignant neoplasm of prostate PROSTATE CA Procedures PROSTATE CA Rock Myers MD [address] [place] [id number] Alonso Shelley MD [address] [place] [address] [place] [address] Referral ID Status Reason Start Date Expiration Date Visits Re quested Visits Authorized [id number] Closed 12/13/2020 12/13/2021 6 6 Encounter Details Date Type Department Care Team (Late st Contact Info) Description 01/20/2021 10:00 AM EST Office Visit Radiation Oncology at [address] [phone] Alonso Shelley MD [address] [place] [address] [place] [address] Malignant neoplasm of prostate Social [...] Sign Reading Time Taken Comments Blood Pressure 135/70 01/20/2021 9:00 AM EST Pulse 67 01/20/2021 9:00 AM EST Temperature 37 ??C (98.6 ??F) 01/20/2021 9:00 AM EST Respiratory Rate 18 01/20/2021 9:00 AM EST Oxygen Saturation 98% 01/20/2021 9:00 AM EST Inhaled Oxygen Concentration - - Weight 110.7 kg (244 lb) 01/20/2021 9:00 AM EST Height - - Body Mass Index 34.05 11/17/2020 1:12 PM EDT documented in this encounter Patient Instructions * Patient Instructions* Alonso Shelley MD - 01/20/2021 10:00 AM EST Dear Mr. Sadler, Dr. Myers asked for me to see you to discuss how radiation therapy can be used to treat your prostate cancer and this note is to recap our discussion regarding use of radiation treatments. As your radiation oncologist, I work closely with your other healthcare providers and most importantly, with you to make sure that the treatments we discuss and offer keep your personal preferences and goals in mind. We discussed the following next steps as part of your cancer evaluation and/or treatment: 1. The aggressiveness of your prostate cancer: You technically have high risk prostate cancer, which is a risk given to your cancer of coming back after treatment. This is based on three things 1. Your PSA (the blood test) was 21. PSA values below 10 are considered low risk and 10-20 are considered medium risk and above 20 are considered high risk. 2. Your highest Lisa score was 6 (this is how aggressive your prostate cancer looks under the microscope). Lisa scores for cancer range from 6-10, and 6 is considered lowest risk, while scores of 8-10 are considered higher risk. 3. How aggressive your prostate cancer felt when Dr. Myers did the prostate exam (through the rectum) and how aggressive it appeared on the MRI, which showed a large tumor in the front of your prostate. I am concerned that the biopsy did not reach this location. The decision to treat prostate cancer is based on both the risk that the cancer can kill you and your general overall health. I agree with Dr. Myers's recommendation that this should be treated since we would otherwise expect you to live a normal length of life. 2. Radiation Treatment Options: Radiation recommendations will depend on what the biopsy shows. In general it can be given for 5.5 weeks or 9 weeks with external beam radiation alone. A 5 week courseof external beam radiation PLUS a radioactive seed implant is also possible. Recent studies seem tosuggest that for patients like you, adding the radioactive seed implant to a 5 week course of treatment may be better than standard external beam radiation alone. If you'd like to consider this option, I can refer you to my colleague Dr. Beaver in [place] for a further discussion. 3. Fiducial marker and SpaceOAR gel implants: If you decide to choose external beam radiation by itself, the first step will be for you to return to our clinic so that we can place small gold markers(called fiducials) into the prostate, which help us visualize the prostate on a daily basis prior to treating you with radiation. These small gold seeds are about the size of a grain of rice, and we will place one into each side of the prostate. At the same time I will also implant a gel called SpaceOAR, which involves an injection of the gel into the space between the prostate and rectum, to decrease the amount of radiation that goes to the rectum. Some early data suggests it may be helpful in reducing radiation injury to the rectum. These procedures will be performed here in our clinic, and our nursing team will provide you instructions with how to prepare yourself. It takes approximately 2 hours from when you arrive to when you leave the building. 4. Radiation Therapy and Planning: Radiation therapy involves using high energy radiation which kills cancer but also normal healthy tissues. In order to make sure the radiation goes to the canceroustissues and to also avoid radiating the normal tissues, we design radiation beams beams into special shapes which come from various different directions. Because no two people and no two cancers are completely identical, the radiation plan we create for you will be unique to you and your body. In order to figure out how many beams to use, how much radiation to give, which angles they should come from, and how they should be shaped, we have asked you to undergo 2 mapping scans: one is done here in our department known as a CT simulation, or CT sim, for short. This is essentially a CAT-scan similar to scans which you may have received before, but slightly different in a few ways: First, it allows us to place you in the exact same position which you should expect to be placed during each of your radiation treatment sessions. Second, it lets us better understand where the radiation targets and the normal tissues that we want to avoid exist, in relation to each other and the radiation beams. The second scan is a prostate MRI which will show us the position of the markers and improve our ability to see your prostate. Following these scans, we then perform additional calculations and measurements to create the absolute best plan possible for you. Depending on the complexity of the plan, these processes can take from just few hours to several days, and for that we ask for your patience. If you have any questions about the planning process or your custom radiation plan, I would be more than happy to review the plan with you during your first week of treatment. Your start date and time would be provided once the simulation scan is completed. During your radiation treatments, you can expect to see me once per week so that I can examine you to make sure you are tolerating radiation treatments and so that we can monitor your response to treatment. 5. SIDE EFFECTS - Short Term: We discussed some common temporary side effects that you may experience during radiation. Common side effects may include irritative symptoms of the bladder or prostate,which can result in more frequent urination or defecation. Other common side effects mahy include weakened urinary stream or burning with urination. If you experience any of these, please let us knowso that we can help to treat them. These typically resolve within 4-6 weeks of completion radiation. 6. SIDE EFFECTS - Half-Way: These can include be permanent damage of the radiated tissues, including the rectum/bowel, bladder, prostate and surrounding tissues. Potential serious injury is rare, but can include poor wound healing, bleeding, or destruction of healthy tissue that may require surgery to repair and may result in a colostomy (bag for defecation) or urostomy (bag for urination). There may be a slow, terminal computer operator decrease in your sexual function as well, which is partly due to the aging process but also partly due to radiation side effects. This is typically responsive to medicationslike Viagra. Finally, there is a risk that radiation to your prostate increases the chance of getting another cancer caused by radiation, possibly of the prostate, bladder, rectum or surrounding tissues. This risk is overall quite low (approximately 1% above your normal risk for each 10 years you are alive), but is something to be aware of. 7. Hormone therapy: For high risk prostate cancers such as yours, I recommend a course of anti-testosterone therapy for at least 6 months if not longer - depending on what the biopsy shows (typicallythis starts 2 months before radiation, continues for 2 months during radiation and ongoing after radiation is completed). This is usually given as a shot that lasts for 3 months at a time. The reasonwe recommend this is that the male hormone testosterone is used by prostate cancer as a fuel. By decreasing the body's production of testosterone, we can 'starve' the prostate cancer. The main side effects of hormone therapy include hot flashes, night sweats, weight gain, depressed mood, loss of sexual interest and impotence. There is also a very low risk of heart attack among men who have recently had a heart attack. These side effects usually reverse within 3-6 months of stopping the hormone therapy when testosterone recovers, although it can take up to a full year. During your radiation treatments we would also give you a pill to take once a day called Casodex (bicaluatamide) that blocksthe effect of testosterone in the body. You should start taking this on the same day as your first injection of anti- testosterone shot (today, if you like.) Please do not hesitate to call me at [phone] with any other questions or concerns you have. IfI am not here, one of our radiation oncology nurses can assist you or help you get in touch with me. A Radiation Oncology doctor is also diamond die driller after our normal hours and on weekends for urgent questions or concerns related to radiation treatments that can not wait until normal business hours. To reach the on-call doctor after-hours, just call and have the milk drying machine operator page the Radiation Oncologist diamond die driller. And, as always, if you experience any life-threatening emergencies which any include the following,you need to seek emergency care immediately by calling 911: 1. Sudden and unexpected breathing difficulty without any exertion 2. Sudden onset of chest pain 3. Sudden onset of severe pain or uncontrolled pain 4. Sudden onset of severe weakness and/or unable to walk 5. Sudden new onset of a seizure 6. Fall resulting in injury 7. Uncontrollable bleeding Alonso Chiu MD, MS [employer] Supervisor of Radiation Oncology [facility] documented in this encounter Progress Notes * Alonso Shelley MD - 01/20/2021 10:00 AM EST Images from the original note were not included. Radiation Oncology Prostate Cancer Consult Note Alonso Shelley MD, MS [facility] [phone] PATIENT IDENTIFICATION: PATIENT NAME: Wero Sadler DATE OF : 1950 REFERRING PROVIDER: Alo Carey[address] [place] [address] REASON FOR CONSULTATION : Cancer Staging Malignant neoplasm of prostate Staging form: Prostate, AJCC 8th Edition - Clinical: Stage IIIA (cT1c, cN0, cM0, PSA: 21.6, Grade Group: 1) - Signed by Alonso Shelley MDon 01/18/2021 HISTORY OF PRESENT ILLNESS: Wero Sadler is a 70 y.o. male with history of colon cancer and CAD (s/p CABGx3) recently diagnosed with a high-risk prostate cancer. Presenting Symptoms / Duration: ePSA Prior consultations / recommendations: 10/05/20 - Dr Myers - 1+ prostate without induration or nodularity 11/25/20 - Dr Myers - I did discuss his case with [place] [facility] He acknowledged the complexities of the case. He agreed that we do not need further tissue diagnosis as he is already considered high risk with a PSA >20 and would be advised to have 18-36 months of neoadjuvant hormones should he pursue EBRT. 01/16/21 - Dr Engle - Surgery seems unlikely given comorbidity. However given h/o retention, recommended PVP outlet surgery ~4 months prior to RT/ADT. ADT could be started in meantime. Schedule for this is pending. 01/24/21 - Dr Naylor - PENDING (to discuss prostatectomy) PSA History: 03/2020 - 15.4 05/2020 - 18.5 10/2020 - 21.6 Pathology Results / Location: 07/06/2020 - Dr Mayo ([place], [place] - [facility]) Gl 3+3 in 2 of 12 cores @ right apex (in [place], prior to moving to [place]) Pertinent Imaging Studies: mpMRI 11/17/20 - 50cc gland PIRADS 5 lesion Ant Right Mid TZ and AFMS PIRADS 4 lesion Post Left Mid PZ Wero is here today to discuss radiation therapy for treatment of his recently diagnosed prostate cancer. REVIEW OF SYSTEMS: REVIEW OF SYSTEMS 01/20/2021 Constitutional None of the above Ear / nose / throat / mouth Dry mouth Eyes Other eye problems Respiratory Thick mucous or spit (Sputum or Phlegm), Shortness of breath Cardiovascular None of the above Gastrointestinal Heartburn, indigestion Skin, hair None of the above Musculoskeletal Joint stiffness, Joint pain, Reduced range of motion, Unable to walk/difficulty walking, Other symptoms with joints or muscles Neurological Balance difficulty, dizziness Hematologic / Lymphatic None of the above Genitourinary Frequent urination A comprehensive 14 point review of systems was conducted with this patient and is otherwise negative except as documented above. Baseline DWAIN and IPSS are as below: Prostate Scores and Responses 01/20/2021 Confidence, level - past 6 months Very low Penetration - past 6 months No sexual activity Penetration, maintain - past 6 months Did not attempt intercourse Erection, maintain - past 6 months Did not attempt intercourse Sexual satisfaction - past 6 months Did not attempt intercourse Sexual Health in Men 1 (SEVERE ED) Incomplete emptying Not at all Frequency About half the time Intermittency Less than half the time Urgency Less than 1 time in 5 Weak Stream Less than half the time Straining Not at all Nocturia 1 time Quality of life Mixed - about equally satisfied and dissatisfied Total IPSS Score 9 (MODERATE LUTS) EPIC-PC Responses 01/20/2021 Urinary Incontinence Symptom Score 1 Urinary Irritation/Obstructive Symptom Score 0 Bowel Symptom Score 0 Vitality/Hormonal Symptom Score 1 Overall Prostate Cancer QOL Score 2 Urinary function problem Very small problem Urinary control Occasional dribbling # of pads used per day None Urinary dripping/leakage problem No problem Pain or burning with urination No problem Weak urine stream/incomplete bladder emptying No problem Need to urinate frequently No problem Rectal pain or urgency of bowel movements No problem Increased frequency of your bowel movements No problem Overall problems with your bowel movements No problem Bloody stools No problem Ability to reach orgasm Very poor to none Quality of your erections Not firm enough for any sexual activity Problem with sexual function or lack of it No problem Hot flashes or breast tenderness/enlargement No problem Feeling depressed No problem Lack of energy Very small problem PAST MEDICAL HISTORY Past Medical History: Diagnosis Date ??? 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 Claudication ??? Colon adenocarcinoma 2009 recieved [...] 20.72) performed by Ismael Wu MD at [facility] MA[facility] OR CONTRAINDICATIONS TO RADIATION THERAPY: None ?? Prior radiation therapy: No ?? Active Lupus: No ?? Systemic Scleroderma: No MEDICATIONS / ALLERGIES: Medications 01/20/21 0959 Medication Sig Taking? carvediloL (Coreg) 25 mg Tablet daily. Yes tamsulosin (Flomax) 0.4 mg Capsule Take 1 capsule by mouth daily. Patient taking differently: Take 0.8 mg by mouth every morning. Yes atorvastatin (Lipitor) 40 mg Tablet Daily. Yes clopidogreL (Plavix) 75 mg Tablet daily. Yes metFORMIN (GLUCOPHAGE) 1,000 mg Tablet Take 1,000 mg by mouth 2 times daily (with meals). Yes amLODIPine (Norvasc) 10 mg Tablet Take 10 mg by mouth daily. Yes aspirin EC 81 mg Tablet, Delayed Release (E.C.) Take 81 mg by mouth daily. Yes fish oil-omega-3 fatty acids 1,000 mg Capsule Take 2 g by mouth daily. Yes glimepiride (Amaryl) 1 mg Tablet daily. oxyCODONE (Roxicodone) 5 mg Tablet Take 1-2 [...] a dye used during vascular procedure at [facility] in [place]: shaking Has tolerated MRI and CT contrast. 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 Diabetes Father PHYSICAL EXAM BP 135/70 Pulse 67 Temp 37 ??C (98.6 ??F) Resp 18 Wt 110.7 kg (244 lb) SpO2 98% BMI 34.05 kg/m?? General: alert, well appearing, and in no distress sitting in exam room with his brother at side MELIA: deferred TODAY'S PERFORMANCE STATUS: KPS Score ECOG Grade Definition 90-100 0 [...] selfcare; totally confined to bed or chair ASSESSMENT / PLAN: Wero Sadler is a 70 y.o. man diagnosed with high-risk prostate cancer (cT1c, Gl 3+3, PSA 21). HisMRI and PSA value and trajectory are both concerning for significantly more advanced disease than his biopsy results have shown. Staging for regional / distant disease is negative. He has been recommended to undergo PVP to stave off retention side effects of RT. Surgical consultation for RP with Conrad is pending for 01/24 and if surgery is offered it seems Mauri would pursue this option, rendering PVP/ADT-RT unnecessary. While I understand rationale for not pursuing biopsy (ie the high PSA), I have contacted Drs. Rahul Naylor to see if a fusion biopsy would be possible at time of PVP. The rationale is that better assessment of histologic risk would aid in medical decision making especially around 1) use of a pelvic field and 2) duration of ADT. If the fusion biopsy for example returns a relative low grade (group 2-3) I would be comfortable omitting the pelvic field and a relatively shorter course of ADT. If however biopsy results higher grade (group 4-5), a pelvic field and longer course of ADT would be more strongly considered. Dr Engle believes he can do a biopsy at time of PVP. Today we reviewed the risks, benefits, rationale, implications and alternatives of the various management options. He will meet Dr Naylor to review the surgical option, so we focused our discussion on radiation therapy. Briefly, though, we reviewed his three major options, which include radical pro statectomy, radiation therapy, and active surveillance with delayed curative intent. Active surveillance was previously recommended but I agree with other providers that given MRI appearance and rateof PSA rise this should not be pursued any further. With regard to his radiation options, we reviewed the following: Hypofractionated RT to the prostate +/- pelvic LNs Standard fractionated RT to prostate +/- pelvic LNs Brachytherapy and SBRT were not reviewed given history of retention as well as plan for PVP and concerns for urethral stenosis / necrosis as a complication of high dose therapy. Hypofractionated RT may increase temporary urinary obstructive symptoms, but is not associated with any known skilled nursing Gr3+ toxicity. In the short term, I reviewed the common irritative bowel and bladder side effects associated with all forms of radiotherapy. He understands we would typically wait 4-6 months post PVP to initiate RT. In the skilled nursing, I explained there is an approximately 2% chance of serious bladder or rectal toxicity as well as a very low risk of inducing a secondary malignancy. I also reviewed that with radiation there are few reliable salvage curative options. Logistics of external beam treatment were also reviewed, including the role of fiducial marker placement, simulation, and treatment. Hydrogel implant will not be pursued given risk of BEN noted on MRI and history of prostatitis which may have resulted in periprostatic fibrosis. I also reviewed the role of long-term ADT and side effects associated with this treatment. He understands there is a survival benefit when ADT is added to radiotherapy, and that side effects can include diminished libido, hot flashes, weight gain, mood swings, depression and/or osteoporosis. Clinical trials were also reviewed briefly. He is not a candidate for any currently open trials at [facility]. On balance, Wero wishes to proceed with his surgical consultation and PVP. After biopsy is performed, I would recommend we initiate ADT, which can be done here in [facility]. Follow-up appointments will be made accordingly. Informed consent will be obtained closer to the time of fiducial marker placement and radiotherapy. All of his questions were answered to his satisfaction, and we have provided him with our contact information should any further questions or concerns arise. SUMMARY OF PLAN / RECOMMENDATION: 1. Intent of therapy: Curative 2. Clinical Trial Availability: No 3. Dr Naylor 01/24 re: RALP 4. If no surgery --> PVP + fusion biopsy --> RV here to start ADT, review results 5. Recheck PSA today Time Attestation: I certify spending at least 60 minutes in providing care to this patient today, 01/20/21 as reflected by the following activities: - review of his medical record in the chart, including interpretation of imaging, laboratory and pathologic studies referenced above - discussion of the above with the patient as part of shared medical decision making - documenting the outcome of today's visit as above ALONSO SHELLEY MD, MS * Juli Tripathi RN - 01/20/2021 10:00 AM EST RADIATION ONCOLOGY NURSING INITIAL NURSING ASSESSMENT IDENTIFICATION: Wero Sadler is a 70 y.o. year-old male with prostate ca REVIEW OF SYSTEMS: Review of Systems - Oncology REVIEW OF SYSTEMS 01/20/2021 Constitutional None of the above Ear / nose / throat / mouth Dry mouth Eyes Other eye problems Respiratory Thick mucous or spit (Sputum or Phlegm), Shortness of breath Cardiovascular None of the above Gastrointestinal Heartburn, indigestion Skin, hair None of the above Musculoskeletal Joint stiffness, Joint pain, Reduced range of motion, Unable to walk/difficulty walking, Other symptoms with joints or muscles Neurological Balance difficulty, dizziness Hematologic / Lymphatic None of the above Genitourinary Frequent urination Prostate IPSS and DWANI(Pt Entered): Today's answers and scores Prostate Scores and Responses 01/20/2021 Confidence, level - past 6 months Very low Penetration - past 6 months No sexual activity Penetration, maintain - past 6 months Did not attempt intercourse Erection, maintain - past 6 months Did not attempt intercourse Sexual satisfaction - past 6 months Did not attempt intercourse Sexual Health in Men 1 (SEVERE ED) Incomplete emptying Not at all Frequency About half the time Intermittency Less than half the time Urgency Less than 1 time in 5 Weak Stream Less than half the time Straining Not at all Nocturia 1 time Quality of life Mixed - about equally satisfied and dissatisfied Total IPSS Score 9 (MODERATE LUTS) IN THE PAST 12 MONTHS HAVE YOU: Fallen more than one time? Yes Injured yourself as result of the fall? No Experienced difficulty with walking/problems with balance? Yes legally blind, tripped on [employer] chain Do you use any assistive devices? No Any history of collagen vascular diseases:Yes stroke 11/2019 Any Implanted Devices/Hardware: Yes Left hip replaced If yes please put alert in ARIA patient summary Prior Radiotherapy: No Prior Chemotherapy: Yes 5FU, Had colon ca 2008 in [facility], Dr Kamara. Prior Hormone Therapy: Yes , casodex for 1 month End of Dec-Jan Other: Patient denies history of Scleroderma and Lupus LEARNING ASSESSMENT REVIEWED: Yes ADVANCED DIRECTIVE: Not discussed today. PAIN ASSESSMENT: [0] out of 10 *eD-H Adult PCS Flow Sheet if 4 or above SOCIAL ASSESSMENT: See ED social assessment information entered. 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 RADIATION SPECIFIC TEACHING:Will provide the following information on day [facility] Radiation Therapy and You Site specific teaching : Other: PLAN: Per Dr Shelley documented in this encounter Plan of Treatment Upcoming Encounters Date Type Department Care Team (Late st Contact Info) Description 10/11/2023 10:00 AM EDT Tech [place] [address] Giacomo Queen 10/11/2023 11:15 AM EDT Office [place] [address] Basim Barr MD [facility] [place] [address] 10/18/2023 9:00 AM EDT Office Visit Hematology/Oncology at [address] [phone] Cl Hess MD [facility] [place] [address] Yessi Renee APRN [address] [place] [address] DR HEMATOLOGY AND ONCOLOGY [place], [place] [phone] 10/18/2023 9:30 AM EDT Infusion Hematology Oncology at [address] [phone] 10/24/2023 9:30 AM EDT Scheduled View Only Radiation Oncology at [address] [phone] St [place] Champagne 10/24/2023 10:00 AM EDT Office Visit Radiation Oncology at [address] [phone] 87 Alonso Shelley MD [address] [place] [address] DR RADIATION ONCOLOGY [place], [place] [address] 11/01/2023 9:00 AM EDT Office Visit Hematology/Oncology at [address] [phone] Cl Hess MD [facility] [place] [address] Yessi Renee APRN [address] [place] [address] DR HEMATOLOGY AND ONCOLOGY [place], [place] [phone] 11/01/2023 9:30 AM EDT Infusion Hematology Oncology at [address] [phone] 12/24/2023 1:00 PM EDT TH Visit (TeleHealth) Radiation Oncology at [address] [phone] Ping Moore PA [facility] DR [place] [address] documented as of this encounter Visit Diagnoses Diagnosis Malignant neoplasm of prostate documented in this encounter Care Teams Information Systems Consultant Relationship Specialty Start Date End Date Alo Carey DO [address] [place] [address] [place] [phone] PCP - General Internal Medicine 08/31/20 07/03/23 documented as of this encounter
--- OUTSIDE RECORDS SUMMARY | 2023-10-06 00:44 | XMS_ITS | Encounter Summary ---
Author Organization [facility] [place] [address] Care Team Providers Care Triage Registered Nurse Name Role Phone Alo Carey DO Primary Care Provider [phone] Reason for Visit * Reason Comments Pre-op Exam Left JIMI DOS 08.0 9.21 Encounter Details Date Type Department Care Team (Latest Contact Info) Description 10/06/2020 4:00 PM EDT Office [place] [address] Pedro Mai MD [facility] [place] [address] Preop examination; Primary osteoarthritis of left hip Social History [...] Sign Reading Time Taken Comments Blood Pressure 156/88 10/06/2020 3:14 PM EDT Pulse 72 10/06/2020 3:14 PM EDT Temperature - - Respiratory Rate - - Oxygen Saturation 95% 10/06/2020 3:14 PM EDT Inhaled Oxygen Concentration - - Weight 114.8 kg (253 lb) 10/06/2020 3:14 PM EDT Height 180.3 cm (5' 11) 10/06/2020 3:14 PM EDT Body Mass Index 35.29 10/06/2020 3:14 PM EDT documented in this encounter Progress Notes * Pedro Mai MD - 10/06/2020 4:00 PM EDT Images from the original note were not included. CC: Wero Sadler is a 70 y.o. male new patient to the perioperative clinic with the following problems and medications that is being seen in the clinic for consultation at the request of his surgeonDrKeerthi Wu for preoperative risk stratification and management recommendations in anticipation of left total hip arthroplasty for symptomatic OA. HPI - Pain - Location - left hip, Quality - aching, Onset - gradual, Duration - several years Intensity - moderate to severe, Aggravating factors - standing, walking, stepping, bending, Alleviating factors - APAP, rest, Associated - has CAD, s/p CABG, carotid stenosis s/p left CEA at the same time as his CABG, abrupt loss of central vision on OD last year in November, had left forearm numbness preceding that, had urgent evaluations with vascular surgeon and underwent carotid duplex, MRI brain and neuro and ophthalmology evaluations with [facility] as resultant diagnosis. From his PCP list: Patient Active Problem List Diagnosis Code ??? Colorectal cancer C19 ??? Diabetes mellitus E11.9 ??? Hypercholesterolemia E78.00 ??? Hypertensive disorder I10 ??? ASCVD (arteriosclerotic cardiovascular disease) I25.10 Current Outpatient Medications Medication Sig Dispense Refill ??? atorvastatin (Lipitor) 40 mg Tablet Daily. ??? clindamycin (CLEOCIN) 300 mg Capsule clindamycin HCl 300 mg capsule ??? metFORMIN (GLUCOPHAGE) 1,000 mg Tablet Take 1,000 mg by mouth 2 times daily (with meals). ??? carvediloL (Coreg) 12.5 mg Tablet Take 12.5 mg by mouth 2 times daily (with meals). ??? amLODIPine (Norvasc) 10 mg Tablet Take 10 mg by mouth daily. ??? glimepiride (Amaryl) 1 mg Tablet Take 1 mg by mouth every morning (before breakfast). ??? aspirin EC 81 mg Tablet, Delayed Release (E.C.) Take 81 mg by mouth daily. ??? fish oil-omega-3 fatty acids 1,000 mg Capsule Take 2 g by mouth daily. ??? amoxicillin-clavulanate (Augmentin) 875-125 mg Tablet amoxicillin 875 mg- potassium clavulanate 125 mg tablet ??? clopidogreL (Plavix) 75 mg Tablet clopidogrel 75 mg tablet Current Facility-Administered Medications Medication Dose Route Frequency Provider Last Rate Last Admin ??? mupirocin (BACTROBAN) 2 % ointment 1 each 1 each Topical (Top) BID Ismael Wu MD 1 each at 10/06/20 1555 Facility-Administered Medications Ordered in Other Visits Medication Dose Route Frequency Provider Last Rate Last Admin ??? [START ON 10/10/2020] [id number] ketamine 10 mg/mL or placebo injection 57 mg 0.5 mg/kg/dose Intravenous Once Rodrick Chisholm MD And ??? [START ON 10/10/2020] INV [id number] patient's specific med #2 1 each 1 Syringe Intravenous Once Rodrick Chisholm MD ??? [START ON 10/10/2020] [id number] ketamine or placebo 250 mg in sodium chloride 0.9% 250 mL infusion 5mcg/kg/min Intravenous Continuous Rodrick Chisholm MD And ??? [START ON 10/10/2020] INV [id number] patient's specific infusion med #2 1 each 1 Syringe Intravenous Continuous Rodrick Chisholm MD Social History Occupational History ??? Not on file Tobacco Use ??? Smoking status: Former Smoker Types: Cigarettes Quit date: 1992 Years since quittin.6 ??? Smokeless tobacco: Never Used Substance and Sexual Activity ??? Alcohol use: Yes ??? Drug use: Not Currently Types: Marijuana ??? Sexual activity: Not on file Family [...] years ago and has no diarrhea. He is due for colonoscopy in January. Endocrine: Negative for polydipsia and polyphagia. Genitourinary: Negative for dysuria, flank pain and hematuria. Nocturia x1. PSA has trended up to 21.2. Has prostate cancer in 2/ biopsies and has seen Dr. Myers here in [place]. He has MRI planned. Skin: Negative for pallor and rash. Allergic/Immunologic: Negative for environmental allergies and immunocompromised state. Neurological: Negative for syncope and speech difficulty. Had a mechanical fall in past year. He isnot using a cane today. Uses one mainly for vision impairment. Hematological: Negative for adenopathy. Does not bruise/bleed easily. Psychiatric/Behavioral: Negative for confusion, decreased concentration and dysphoric mood. Allergies: Allergies Allergen Reactions ??? Other [Unclassified Drug] Had reaction to a dye used during vascular procedure at [facility] in [place] Physical Exam: Last Set of Vitals and Range over past 24 hours: Last value Range last 24 hrs Heart Rate Heart Rate: 72 Heart Rate: [72-75] Blood Pressure BP: 156/88 BP: (156-163)/(78-88) SpO2 SpO2: 95 % SpO2: [95 %] BP at home 123/76 and usually higher in clinic. 96% on RA at home. CBG 123. Estimated body mass index is 35.29 kg/m?? as calculated from the following: Height as of this encounter: 180.3 cm (5' 11). Weight as of this encounter: 114.8 kg (253 lb). Physical Exam Constitutional: He is oriented to [...] exhibits no edema. He is ambulatory without aide, he has 0 IR left hip with impaired flexion. . Neurological: He is alert and oriented to person, place, and time. He exhibits no resting or intentional tremors, he has good recall. He has no dysarthria or ataxia. Skin: Skin is warm and dry. He is not diaphoretic. No pallor. Psychiatric: He has a normal mood and affect. His behavior is normal. Judgment and thought content normal. Lab Results Component Value Date WBC 6.1 10/06/2020 RBC 4.60 10/06/2020 HGB 14.7 10/06/2020 HCT 43.3 10/06/2020 MCV 94.1 (H) 10/06/2020 MCH 32.0 10/06/2020 MCHC 33.9 10/06/2020 PLATELET 190 10/06/2020 RDWCV 13.2 10/06/2020 Lab Results Component Value Date NA 141 10/06/2020 K 4.3 10/06/2020 CL 103 10/06/2020 CO2 23 10/06/2020 BUN 13 10/06/2020 CREATININE 0.98 10/06/2020 GLUCOSE 195 10/06/2020 CALCIUM 9.8 10/06/2020 ESTGFR 77 10/06/2020 Lab Results Component Value Date PT 11.1 10/06/2020 INR 1.0 10/06/2020 PTT 32 10/06/2020 Estimated Creatinine Clearance: 87.8 mL/min (based on SCr of 0.98 mg/dL). EKG (image reviewed): Normal sinus rhythm Normal ECG No previous ECGs available Confirmed by Janki Allred MD ([id number]) on 10/06/2020 3:29:14 PM Xray - severe OA left hip A/P 1. Preop examination 2. Primary osteoarthritis of left hip His CAD is stable. He would like to see ophthalmology in the future and seeks a referral. He will pursue ongoing management of his prostate cancer per Dr. Myers, he will get his colonoscopy as indicated and will schedule it after 6 months after his JIMI. He finds his hip pain impairing his activities, continues to attend to self and helps with home chores in the kitchen, does his own laundry, lives with two brothers, another brother and ROBEL are available to help and he has his ROBEL with him today. He elects to proceed with left JIMI and plans to stage the other. He was counseled on importance of continuing his cardiac medication and need to interrupt the Plavix. He last took his Plavix on October 01. He is instructed to continue aspirin through his surgery. Major Risk Factor per the Revised Cardiac [...] risk of postoperative pulmonary complications as being intermediate ~13.5%. Per the ACS NSQIP calculator I estimated the following. Patient instructions: Stop Plavix (already done), take aspirin, atorvastatin, carvedilol and amlodipine the morning of surgery. Do NOT take metformin or glimepiride the morning of surgery. Take otherusual medications the night before surgery. Bring CPAP to surgery. RECOMMENDATION for Postoperative Care: Continue CPAP Continue aspirin, statin, carvedilol (hold if SBP<105 or HR<55), amlodipine (hold if SBP<120) Resume metformin and Amaryl iwht oral intake FSBS q 4 with sensitive correction Humalog Resume Plavix when okay to do so from a surgical and anesthesiology perspective. Is this patient a candidate for expedited recovery after total joint replacement no CAD, vision impaired, DM2. RAPT is 10/13 implying potential for discharge home after hospital stay with support of his family. documented in this encounter Plan of Treatment Upcoming Encounters Date Type Department Care Team (Late st Contact Info) Description 10/11/2023 10:00 AM EDT Tech [place] [address] Giacomo Queen 10/11/2023 11:15 AM EDT Office [place] [address] Basim Barr MD [facility] [place] [address] 10/18/2023 9:00 AM EDT Office Visit Hematology/Oncology at [address] [phone] Cl Hess MD [facility] [place] [address] Yessi Renee [address] HEMATOLOGY AND ONCOLOGY [place], [place] [phone] 10/18/2023 9:30 AM EDT Infusion Hematology Oncology at [address] [phone] 10/24/2023 9:30 AM EDT Scheduled View Only Radiation Oncology at [address] [phone] Jeronimo Bowen [place] 10/24/2023 10:00 AM EDT Office Visit Radiation Oncology at [address] [phone] 60 Bigg Peters MD [address] [place] [address] DR RADIATION ONCOLOGY [place], [place] [address] 11/01/2023 9:00 AM EDT Office Visit Hematology/Oncology at [address] [phone] Cl Hess MD [facility] [place] [address] Yessi Renee [address] HEMATOLOGY AND ONCOLOGY [place], [place] [phone] 11/01/2023 9:30 AM EDT Infusion Hematology Oncology at [address] [phone] 12/24/2023 1:00 PM EDT TH Visit (TeleHealth) Radiation Oncology at [address] [phone] Ping Moore PA [facility] [place] [address] documented as of this encounter Visit Diagnoses Diagnosis Preop examination Preoperative examination, unspecified Primary osteoarthritis of left hip Primary localized osteoarthrosis, pelvic region and thigh documented in this encounter Care Teams Triage Registered Nurse Relationship Specialty Start Date End Date Alo Carey DO [address] [place] [address] [place] [phone] PCP - General Internal Medicine 08/31/20 07/03/23 documented as of this encounter
--- OUTSIDE RECORDS SUMMARY | 2023-10-06 00:44 | XMS_ITS | Encounter Summary ---
[place] [address] Care Team Providers Care Business Development Professional Name Role Phone Alo Carey DO Primary Care Provider [phone] Encounter Details Date Type Department Care Team (Late st Contact Info) Description 12/07/2020 Ancillary Procedure [place] [phone] Alo Carey DO [address] [place] [address] [place] [phone] Social History Tobacco Use Types Packs/Day Years [...] AM EDT Tech [place] [address] Giacomo Queen 10/11/2023 11:15 AM EDT Office Visit [place] [address] Basim Barr MD [facility] [place] [address] 10/18/2023 9:00 AM EDT Office Visit Hematology/Oncology at [address] [phone] Cl Hess MD [facility] [place] [address] Yessi Renee [address] HEMATOLOGY AND ONCOLOGY [place], [place] [address] 10/18/2023 9:30 AM EDT Infusion Hematology Oncology at [address] [phone] 10/24/2023 9:30 AM EDT Scheduled View Only Radiation Oncology at [address] [phone] Rad Nurse, [facility] 10/24/2023 10:00 AM EDT Office Visit Radiation Oncology at [address] [phone] Bigg Peters MD [address] [place] [address] DR RADIATION ONCOLOGY [place], [place] [id number] 11/01/2023 9:00 AM EDT Office Visit Hematology/Oncology at [address] [phone] Cl Hess MD [facility] [place] [address] Yessi Renee [address] HEMATOLOGY AND ONCOLOGY [place], [place] [address] 11/01/2023 9:30 AM EDT Infusion Hematology Oncology at [address] [phone] 12/24/2023 1:00 PM EDT TH Visit (TeleHealth) Radiation Oncology at [address] [phone] Ping Moore PA [facility] HEMATOLOGY [place] [address] documented as of this encounter Procedures Procedure Name Priority Date/Time Associated Diagnosis Comments FILM LIBRARY STORAGE ONLY CT ABDOMEN AND PELVIS Routine 12/07/2020 12:00 AM EDT documented in this encounter Results * Film Library- Storage Only CT Abdomen & Pelvis (12/07/2020 12:00 AM EDT) Narrative [facility] - 02/28/2021 10:10 AM EST This exam is auto-finalizing. It's purpose is for storage only. Alo Carey DO [facility] FILM LIBRARY ORD ERABLES [place], [place] documented in this encounter Visit Diagnoses Not on filedocumented in this encounter Care Teams Business Development Professional Relationship Specialty Start Date End Date Alo Carey DO [address] [place] [address] [place] [address] PCP - General Internal Medicine 08/31/20 07/03/23 documented as of this encounter
--- OUTSIDE RECORDS SUMMARY | 2023-10-06 00:44 | XMS_ITS | Encounter Summary ---
Author Organization Formerly [facility] Elena [facility], [place] [address] Care Team Providers Care Mine Safety Director Name Role Phone CherryAlo Lon RUTHERFORD Primary Care Provider [phone] Reason for Visit * Auth/Cert Specialty Diagnoses / Procedures Referred By Marques livingston Referred To Contact Diagnoses Left hip osteoarthritis Procedures PRO TOTAL HIP ARTHROPLASTY TOTAL HIP ARTHROPLASTY - POSTERIOR (WRVU 20.72) MODIFIER ACTIS HIP STEM DEPUY MODIFIER PINNACLE ACETABULUM DEPUY Referral ID Status Reason Start Date Expiration Date Visits Re quested Visits Authorized [id number] 1 1 Encounter Details Date Type Department Care Team (Late st Contact Info) Description 10/10/2020 4:45 PM EDT Anesthesia [place] [address] Natasha Solares MD [facility] [place] [address] Sally Borrero MD [facility] [place] [address] Anesthesia Record Procedure Summary Procedure Name Responsible Anesthesiologist Anesthesia Start Time Anesthesia Stop Time TOTAL HIP ARTHROPLASTY - POSTERIOR (WRVU 19.6) (Left: Hip) Natasha Solares MD 10/10/20 1645 10/10/20 2102 Events Date Time Event Comment 10/10/2020 1632 1644 AN Verify 1645 Start 1645 An Start Data 1727 An Induction 1749 Handoff Intra-procedure anesthesia care was transferred after review of the patient's history, current anesthetic/surgical status and procedural plan, anticipated issues and expected post-operative course (including disposition.) Madan Luke CRNA 1752 Procedure Start 1755 Handoff Intra-procedure anesthesia care was transferred after review of the patient's history, current anesthetic/surgical status and procedural plan, anticipated issues and expected post-operative course (including disposition.) Natasha Solares MD 1858 Handoff Intra-procedure anesthesia care was transferred after review of the patient's history, current anesthetic/surgical status and procedural plan, anticipated issues and expected post-operative course (including disposition.) Madan Luke CRNA 2100 An Intubation 2100 Anesthesia Ready 2100 Extubation/LMA Out 2100 an stop data 2100 Recovery or ICU Handoff Nisha ent care was transferred to the destination unit staff after review of the patient's medical history, current anesthetic/surgical status and plan, according to the Provider Handoff Checklist. 2101 Stop Meds Name Total fentaNYL 100 mcg IV Lidocaine 50 mg Propofol 200 mg Rocuronium 90 mg PHENYLephrine 240 mcg ePHEDrine 5 mg Ondansetron 8 mg Dexamethasone 8 mg Neostigmine 5 mg Glycopyrrolate 0.8 mg ceFAZolin (Ancef) 2 g in dextrose 5% 100 mL infusion 2 g [id number] ketamine 10 mg/mL or placebo inje ction 57 mg 57 mg INV [id number] patient's specific infusion m ed #2 1 each 0 Syringe [id number] ketamine or placebo 250 mg in sod ium chloride 0.9% 250 mL infusion 94.14 mg Propofol INF 441.98 mg HYDROmorphone 2 mg ketorolac (Toradol) (30 mg/mL) injection 15 mg Lactated Ringers 1,500 mL * Agents Name O2 Air N2O Sevoflurane (et) * Blood No blood administrations on file. Lines, Drains, and Airways Type Details Placement Removal Arterial Line 10/10/20; 1600; radi al artery, left; 10/10/20; 214610/10/20 1600 by Judith Bergeron RN 10/10/202146 by Judith Bergeron RN Incision 10/10/20; 1756; Left , lateral; hip; LDA not present upon assessment; 02/02/21; 0810/10/20 175 by Nemo Ignacio RN 02/02/21819 by Briana Burton I, AYE (RETIRED) Peripheral IV Line - Single Lumen 10/10/20; 1899 (in place on arrival to pacu); metacarpal vein (top of hand), right; ggtw-brk-oygncl catheter system; 20 gauge; 10/12/20; 1206 10/10/20 190 by Chen Arrieta RN 10/12/20 120 by Savanah Guadalupe RN documented in this encounter Social History [...] Postprocedure Evaluation - Natasha Solares MD - 10/10/2020 10:49 PM EDT Department of Anesthesiology Post-procedure Note Patient: Wero Sadler Procedure Summary Date: 10/10/20 Room / Location: [address] MAIN OR Anesthesia Start: 1644 Anesthesia Stop: 2101 Procedures: TOTAL HIP ARTHROPLASTY - POSTERIOR (WRVU 20.72) (Left Hip) MODIFIER ACTIS HIP STEM DEPUY (Left Hip) MODIFIER PINNACLE ACETABULUM DEPUY (N/A Hip) Diagnosis: Primary osteoarthritis of left hip (Left hip osteoarthritis) Surgeons: Ismael Wu MD Responsible Provider: Natasha Solares MD Anesthesia Type: general ASA Status: 3 All Anesthesia Providers: Anesthesiologist: Natasha Solares MD; Milton Smalls MD HIDES AND SKINS COLORER: Delmi Garcia CRNA; Madan Luke CRNA Ingredient Specialist: Vidal Watson MD Vitals Value Taken Time BP 146/66 10/10/20 2215 Temp 36.2 ??C (97.2 ??F) 10/10/20 2215 Pulse 86 10/10/20 2220 Resp 20 10/10/20 2220 SpO2 97 % 10/10/20 2248 Pain Level 0 10/10/20 2219 Vitals shown include unvalidated device data. Patient Location: PACU/[facility] Level of Consciousness: Awake and Alert Pain Management: Satisfactory Analgesia PONV: None Cardiovascular Status: At Baseline and Hemodynamically Stable Respiratory Status: At Baseline and Room Air Postoperative Fluid Status: Intravascular EUvolemia Possible Anesthetic Complications: NONE apparent at time of evaluation Final Primary Anesthesia Type: General (The anesthetic type performed was the same as planned.) Comments: Natasha Solares MD * Anesthesia Procedure Notes - Vidal Watson MD - 10/10/2020 5:46 PM EDT Associated Order(s): Arterial Line Placement Arterial Line Placement Procedure Note Date/Time: 10/10/2020 5:47 PM Reason for insertion: invasive blood pressure monitoring and blood sampling for laboratory tests Procedure Diagnosis: Hypotension Informed consent obtained: Obtained General Information and Staff Patient location at time of insertion: Other (add comment) Performed by: Resident/HIDES AND SKINS COLORER: Second Resident/HIDES AND SKINS COLORER: SRNA: Fellow: Attending Physician: Milton Smalls MD Assessment and Preparation Time out performed and documented: Yes Hand Hygiene performed: Yes Skin prepped with: Chlorhexidine Skin prep agent completely dry at time of first puncture: Yes Mask/eye shield: Yes Sterile gloves: Yes Cap worn: Yes Arterial Line Details Gauge: 20 gauge Length: 2 inch Insertion site: Radial artery, right Number of attempts: 1 Sterile dressing: Tegaderm Ultrasound guidance used for insertion: No Guide wire used: Yes Diameter: Findings: Wave form was appropriate * Anesthesia Preprocedure Evaluation - James Hernández MD - 10/09/2020 2:51 PM EDT Pre-Anesthesia Evaluation for: Wero Sadler a 70 y.o. male. Procedure(s): TOTAL HIP ARTHROPLASTY - POSTERIOR (WRVU 20.72) MODIFIER ACTIS HIP STEM DEPUY MODIFIER PINNACLE ACETABULUM DEPUY Patient Active Problem List Diagnosis ??? ASCVD (arteriosclerotic cardiovascular disease) ??? Colorectal cancer ??? Diabetes mellitus ??? Hypercholesterolemia ??? Hypertensive disorder Past Medical History: Diagnosis Date ??? Claudication ??? Coronary artery dissection ??? CPAP (continuous positive airway pressure) dependence CPAP ??? Diabetes treated with medication ??? Obstructive sleep apnea ??? Stroke 11-24-19 Past Surgical History: Procedure Laterality Date ??? CARDIAC SURGERY 12/03/2018 triple bypass ??? CAROTID ENDARTERECTOMY ??? CAROTID-SUBCLAVIAN BYPASS GRAFT Bilateral 2017, 2018 ??? FEMORAL-TIBIAL BYPASS GRAFT Left 12/2017 ??? JOINT REPLACEMENT Social History Tobacco Use ??? Smoking status: Former Smoker Types: Cigarettes Quit date: 1992 Years since quittin.6 ??? Smokeless tobacco: Never Used Substance Use Topics ??? Alcohol use: Yes Social History Substance and Sexual Activity Drug Use Not Currently ??? Types: Marijuana Allergies Allergen Reactions ??? Other [Unclassified Drug] Had reaction to a dye used during vascular procedure at [facility] Medications: MAR and/or home medications have been reviewed. Physical Exam: Preprocedure Vitals Current as of 10/09/20 1451 No BP, pulse, respiration, SpO2, or temperature recorded. Height: 180.3 cm (5' 11) (09/15/20) Weight: 111.6 kg (246 lb) (09/15/20) BMI: 34.31 IBW: 75.3 kg (165 lb 14.8 oz) Airway Assessment: Mallampati: II TM distance: >3 FB Neck ROM: full Cardiovascular Assessment: Rhythm: regular Rate: normal (-) murmur Pulmonary Assessment: breath sounds clear to auscultation pulmonary exam normal Dental Assessment: - normal exam (+) upper dentures and lower dentures Misc Assessment: IV access: Peripheral line Last Filed Perioperative Cognitive Screening Value Time User AD8 Total Score: 0 10/06/2020 3:00 PM Margarita Wilkerson RN AD8 Informant: Patient 10/06/2020 3:00 PM Margarita Wilkerson RN CFS Frailty Score: 3 10/06/2020 3:00 PM Margarita Wilkerson RN Anesthesia Plan: ASA 3 general, with a(n) intravenous induction Wero Sadler is a 70 y.o. male presenting for the following procedure(s): Procedure(s): TOTAL HIP ARTHROPLASTY - POSTERIOR (WRVU 20.72) MODIFIER ACTIS HIP STEM DEPUY MODIFIER PINNACLE ACETABULUM DEPUY PMH significant for: CAD, Colorectal cancer, DMII controlled with orals, HLD, HTN, OLGA on CPAP, Prior stroke 11/2019, PVD. PSH: Prior carotid-subclavian bipass, prior femoral-tibial bypass, prior carotid endarterectomy, ?prior CABG?, prior joint replacement Anesthetic History: No reported prior complications with anesthesia Airway hx: no records Allergies: -- Other (Unclassified Drug) -- Had reaction to a dye used during vascular procedure at [facility] in [place] Labs: Lab Results Component Value Date HGB 14.7 10/06/2020 PLATELET 190 10/06/2020 INR 1.0 10/06/2020 NA 141 10/06/2020 K 4.3 10/06/2020 CREATININE 0.98 10/06/2020 10/06/20 1459 ABORH O Pos Medications: ??? (START ON 10/10/2020) [id number] ketamine 10 mg/mL or placebo injection 57 mg AND (START ON 10/10/2020) INV [id number] patient's specific med #2 1 each??? (START ON 10/10/2020) N56259 ketamine or placebo 250 mg in sodium chloride 0.9% 250 mL infusion AND (START ON 10/10/2020) INV [id number] patient's specific infusion med #2 1 each??? mupirocin (BACTROBAN) 2 % ointment 1 each ??? amoxicillin-clavulanate (Augmentin) 875-125 mg Tablet??? atorvastatin (Lipitor) 40 mg Tablet???clopidogreL (Plavix) 75 mg Tablet??? clindamycin (CLEOCIN) 300 mg Capsule??? metFORMIN (GLUCOPHAGE)1,000 mg Tablet??? carvediloL (Coreg) 12.5 mg Tablet??? amLODIPine (Norvasc) 10 mg Tablet??? glimepiride (Amaryl) 1 mg Tablet??? aspirin EC 81 mg Tablet, Delayed Release (E.C.)??? fish oil-omega-3 fatty acids 1,000 mg Capsule Studies: Exercise tolerance: Greater than 4 METS EKG/Echo/Cath: NSR 10/22 NPO > 8 hours Anesthetic Plan: GA w/ ETT, ketamine 5mcg/kg/min or placebo(NS infusion) study A-line Access: PIV x2 Vidal Watson MD Ingredient Specialist, CA1 (PGY2) Pager # [phone] The patient was informed of the risks, benefits and alternatives of anesthesia. These risks included, but were not limited to, post-operative nausea and/or vomiting, pain, sore throat, dental/lip trauma, and other rare but serious complications such as major organ damage, awareness, severe allergicreactions, position-related nerve injuries, and need blood transfusions. All questions were sought and answered. Consent was signed and placed in chart. Informed Consent: Anesthetic plan and risks discussed with patient. Use of blood products discussed with patient who consented to blood products. Plan discussed with attending and HIDES AND SKINS COLORER. Anesthesia Screening documented in this encounter Plan of Treatment Upcoming Encounters Date Type Department Care Team (Late st Contact Info) Description 10/11/2023 10:00 AM EDT Tech [place] [address] Giacomo Queen 10/11/2023 11:15 AM EDT Office [place] [phone] Basim Barr MD [facility] [place] [address] 10/18/2023 9:00 AM EDT Office Visit Hematology/Oncology at [address] [phone] Cl Hess MD [facility] [place] [address] Yessi Renee APRN [address] [place] [address] DR HEMATOLOGY AND ONCOLOGY [place], [place] [address] 10/18/2023 9:30 AM EDT Infusion Hematology Oncology at [address] [phone] 10/24/2023 9:30 AM EDT Scheduled View Only Radiation Oncology at [address] [phone] Rad NurseSt Deutsch 10/24/2023 10:00 AM EDT Office Visit Radiation Oncology at [address] [phone] Bigg Peters MD [address] [place] [address] DR RADIATION ONCOLOGY [place], [place] [phone] 11/01/2023 9:00 AM EDT Office Visit Hematology/Oncology at [address] [phone] Cl Hess MD [facility] [place] [address] HEMATOLOGY AND ONCOLOGY [place], [place] [address] 11/01/2023 9:30 AM EDT Infusion Hematology Oncology at [address] [phone] 12/24/2023 1:00 PM EDT TH Visit (TeleHealth) Radiation Oncology at [address] [phone] Ping Moore PA [facility] [place] [address] documented as of this encounter Procedures Procedure Name Priority Date/Time Associated Diagnosis Comments [id number] LINE-ANES ONLY Routine 10/10/2020 5:47 PM EDT documented in this encounter Results * [id number] LINE-ANES ONLY (10/10/2020 5:47 PM EDT) Narrative Milton Smalls MD - 10/10/2020 5:47 PM EDT Vidal Watson MD ? 10/10/2020 ??5:48 PM Arterial Line Placement Procedure Note Date/Time: ??10/10/2020 5:47 PM Reason for insertion: ??invasive blood pressure monitoring and blood sampling for laboratory tests Procedure Diagnosis: ??Hypotension Informed consent obtained: ??Obtained General Information and Staff Patient location at time of insertion: ??Other (add comment) Performed by: Resident/HIDES AND SKINS COLORER: ?Second Resident/HIDES AND SKINS COLORER: ??SRNA: ?Fellow: ?Attending Physician: ? Milton Smalls MD Assessment and Preparation Time out performed and documented: ??Yes Hand Hygiene performed: ?? Yes Skin prepped with: ??Chlorhexidine Skin prep agent completely dry at time of first puncture: ?? Yes Mask/eye shield: ??Yes Sterile gloves: ??Yes Cap worn: ??Yes Arterial Line Details Gauge: ??20 gauge Length: ??2 inch Insertion site: ??Radial artery, right Number of attempts: ??1 Sterile dressing: ??Tegaderm Ultrasound guidance used for insertion: ??No Guide wire used: Yes ?Diameter: Findings: ??Wave form was appropriate Milton Smalls MD ANES INPUT W LINKED CHGS documented in this encounter Visit Diagnoses Not on filedocumented in this encounter Administered Medications Inactive Administered Medications - up to 3 most recent administrations Medication Order MAR Action Action Date Dose Rate Site ceFAZolin (Ancef) 2 g in dextrose 5% 100 mL infusion 2 g, Intravenous, EVERY 3 HOURS, 1 dose, First dose on Sat10/10/20 at 1500, Administer over 30 Minutes, Redose after 3 hours., Intra-Operative (Intra-Procedure), Indication for (Active or Suspected): Prophylaxis Given 10/10/2020 5:37 PM EDT 2 g [id number] ketamine 10 mg/mL or placebo injection 57 mg 57 mg (rounded from 57.4 mg = 0.5 mg/kg/dose ? 114.8 kg), Intravenous, ONCE, 1 dose, On Sat10/10/20 at 0700, 0.5 mg/kg bolus followed by a 5 mcg/kg/min continuous infusion. total dose (bolus plus continuous infusion) should not exceed 500 mg, Routine, This is an Investigational Drug that is restricted to patients enrolled in a clinical trial. Is your patient enrolled in this clinical trial? Yes, This medication is restricted and can ONLY be ordered by Dr. Rodrick Chisholm. Acknowledged Given 10/10/2020 5:29 PM EDT 57 mg [id number] ketamine or placebo 250 mg in sodium chloride 0.9% 250 mL infusion 5 mcg/kg/min ? 114.8 kg (34.44 mL/hr, rounded to 34.4 mL/hr), Intravenous, CONTINUOUS, Starting on Sat10/10/20 at 0700, Until Sat10/12/20 at 0611, 0.5 mg/kg bolus followed by a 5 mcg/kg/min continuous infusion. total dose (bolus plus continuous infusion) should not exceed 500 mg New Bag 10/10/2020 5:41 PM EDT 5 mcg/kg/min 34.44 mL/hr dexamethasone (Decadron) injection Intravenous, PRN, Starting on Sat10/10/20 at 2035, Until Sat10/10/20 at 210, Anesthesia Intra-op, Routine Given 10/10/2020 8:35 PM EDT 8 mg ePHEDrine sulfate (5 mg/mL) multi-dose injection Intravenous, PRN, Starting on Sat10/10/20 at 1807, Until Sat10/10/20 at 2102, Anesthesia Intra-op, Routine Given 10/10/2020 6:07 PM EDT 5 mg fentaNYL (pf) (50 mcg/mL) multi-dose injection Intravenous, PRN, Starting on Sat10/10/20 at 1753, Until Sat10/10/20 at 2102, Anesthesia Intra-op, Routine Given 10/10/2020 5:59 PM EDT 50 mcg Given 10/10/2020 5:53 PM EDT 50 mcg glycopyrrolate (Robinul) (0.2 mg/mL) multi-dose injection Intravenous, PRN, Starting on Sat10/10/20 at 202, Until Sat10/10/20 at 210, Anesthesia Intra-op, Routine Given 10/10/2020 8:26 PM EDT 0.8 mg HYDROmorphone (Dilaudid) (2 mg/mL) multi-dose injection solution Intravenous, PRN, Starting on Sat10/10/20 at 1816, Until Sat10/10/20 at 210, Anesthesia Intra-op, Routine Given 10/10/2020 7:21 PM EDT 0.2 mg Given 10/10/2020 7:09 PM EDT 0.4 mg Given 10/10/2020 6:32 PM EDT 0.4 mg ketorolac (Toradol) (30 mg/mL) injection Intravenous, PRN, Starting on Sat10/10/20 at 2035, Until Sat10/10/20 at 210, Anesthesia Intra-op, Routine Given 10/10/2020 8:36 PM EDT 15 mg lactated ringers infusion Intravenous, CONTINUOUS PRN, Starting on Sat10/10/20 at 1644, Until Sat10/10/20 at 2102, Anesthesia Intra-op New Bag 10/10/2020 7:50 PM EDT New Bag 10/10/2020 4:44 PM EDT lidocaine (pf) (Xylocaine) (20 mg/mL) 2% injection syringe Intravenous, PRN, Starting on Sat10/10/20 at 1727, Until Sat10/10/20 at 210, Anesthesia Intra-op, Routine Given 10/10/2020 5:27 PM EDT 50 mg neostigmine (Bloxiver) (1 mg/mL) injection Intravenous, PRN, Starting on Sat10/10/20 at 2025, Until Sat10/10/20 at 2102, Anesthesia Intra-op, Routine Given 10/10/2020 8:26 PM EDT 5 mg ondansetron (pf) (Zofran) (2 mg/mL) injection Intravenous, PRN, Starting on Sat10/10/20 at 2031, Until Sat10/10/20 at 2102, Anesthesia Intra-op, Routine Given 10/10/2020 8:31 PM EDT 8 mg PHENYLephrine in NS (PF) (HANNA-SYNEPHRINE) 0.8 mg/10 mL (80 mcg/mL) multi-dose injection Syrg Intravenous, PRN, Starting on Sat10/10/20 at 1915, Until Sat10/10/20 at 210, Anesthesia Intra-op, Routine Given 10/10/2020 7:46 PM EDT 80 mcg Given 10/10/2020 7:30 PM EDT 80 mcg Given 10/10/2020 7:15 PM EDT 80 mcg propofoL (Diprivan) 10 mg/mL bolus injection (Anesthesia) Intravenous, PRN, Starting on Sat10/10/20 at 1727, Until Sat10/10/20 at 2102, Anesthesia Intra-op Given 10/10/2020 5:27 PM EDT 200 mg propofoL (Diprivan) infusion Intravenous, CONTINUOUS PRN, Starting on Sat10/10/20 at 1752, Until Sat10/10/20 at 2102, Anesthesia Intra-op, Routine New Bag 10/10/2020 5:52 PM EDT 25 mcg/kg/min 17.22 mL/hr rocuronium (Zemuron) (10 mg/mL) multi-dose injection Intravenous, PRN, Starting on Sat10/10/20 at 1727, Until Sat10/10/20 at 2102, Anesthesia Intra-op, Routine Given 10/10/2020 7:30 PM EDT 20 mg Given 10/10/2020 6:31 PM EDT 20 mg Given 10/10/2020 5:27 PM EDT 50 mg documented in this encounter Care Teams Mine Safety Director Relationship Specialty Start Date End Date Alo Carey DO [address] [place] [address] [place] [phone] PCP - General Internal Medicine 08/31/20 07/03/23 documented as of this encounter
--- OUTSIDE RECORDS SUMMARY | 2023-10-06 00:44 | XMS_ITS | Encounter Summary ---
Author Organization [facility] Address [facility] [place] [address] Care Team Providers Care Bindery Cutter Operator Name Role Phone Alo Carey DO Primary Care Provider [phone] Encounter Details Date Type Department Care Team (Late st Contact Info) Description 11/17/2020 Telephone [place] [address] Ismael Wu MD [facility] [place] [address] Social History Tobacco Use Types Packs/Day Years [...] encounter Miscellaneous Notes * Telephone Encounter - Olga Huffman - 11/17/2020 4:36 PM EDT Spoke to patient about holding off on scheduling surgery for the time being due to staffing issues.I let them know once we are ready to schedule we will be back in touch. If patient feels like they need to reach out to us they could call our direct line. Our numbers were given to patient. documented in this encounter Plan of Treatment Upcoming Encounters Date Type Department Care Team (Late st Contact Info) Description 10/11/2023 10:00 AM EDT Tech [place] [phone] Giacomo Queen 10/11/2023 11:15 AM EDT Office Visit [place] [phone] Basim Barr MD [facility] [place] [address] 10/18/2023 9:00 AM EDT Office Visit Hematology/Oncology at [address] [phone] Cl Hess MD [facility] [place] [address] Yessi Renee APRN [address] [place] [address] DR HEMATOLOGY AND ONCOLOGY [place], [place] [phone] 10/18/2023 9:30 AM EDT Infusion Hematology Oncology at [address] [phone] 10/24/2023 9:30 AM EDT Scheduled View Only Radiation Oncology at [address] [phone] St La Nena Champagne 10/24/2023 10:00 AM EDT Office Visit Radiation Oncology at [address] [phone] Bigg Peters MD [address] [place] [address] DR RADIATION ONCOLOGY [place], [place] [phone] 11/01/2023 9:00 AM EDT Office Visit Hematology/Oncology at [address] [phone] Cl Hess MD [facility] [place] [address] Yessi Renee APRN [address] [place] [address] DR HEMATOLOGY AND ONCOLOGY [place], [place] [address] 11/01/2023 9:30 AM EDT Infusion Hematology Oncology at [address] [phone] 12/24/2023 1:00 PM EDT TH Visit (TeleHealth) Radiation Oncology at [address] [phone] Ping Moore PA [facility] DR [place] [address] documented as of this encounter Visit Diagnoses Not on filedocumented in this encounter Care Teams Bindery Cutter Operator Relationship Specialty Start Date End Date Alo Carey DO [address] [place] [address] [place] [phone] PCP - General Internal Medicine 08/31/20 07/03/23 documented as of this encounter
--- OUTSIDE RECORDS SUMMARY | 2023-10-06 00:44 | XMS_ITS | Encounter Summary ---
Author Organization [facility] Address [facility] [place] [address] Care Team Providers Care Parlor Maid Name Role Phone YungAlo santiago Primary Care Provider [phone] Encounter Details Date Type Department Care Team (Latest Contact Info) Description 11/17/2020 11:59 AM EDT - 11/17/2020 2:20 PM EDT Hospital Encounter XRay at [address] [place] [address] Primary osteoarthritis of left hip; Left leg pain Discharge Disposition: Home Social History Tobacco Use [...] EDT Tech [place] [address] Giacomo Queen 10/11/2023 11:15 AM EDT Office [place] [address] Basim Barr MD [facility] [place] [address] 10/18/2023 9:00 AM EDT Office Visit Hematology/Oncology at [address] [phone] Cl Hess MD [facility] [place] [address] Yessi Renee [address] HEMATOLOGY AND ONCOLOGY [place], [place] [phone] 10/18/2023 9:30 AM EDT Infusion Hematology Oncology at [address] [phone] 10/24/2023 9:30 AM EDT Scheduled View Only Radiation Oncology at [address] [phone] Rad Nurse, [facility] 10/24/2023 10:00 AM EDT Office Visit Radiation Oncology at [address] [phone] Bigg Peters MD [address] [place] [address] DR RADIATION ONCOLOGY [place], [place] [phone] 11/01/2023 9:00 AM EDT Office Visit Hematology/Oncology at [address] [phone] Cl Hess MD [facility] [place] [address] [address] HEMATOLOGY AND ONCOLOGY [place], [place] [phone] 11/01/2023 9:30 AM EDT Infusion Hematology Oncology at [address] [phone] 12/24/2023 1:00 PM EDT TH Visit (TeleHealth) Radiation Oncology at [address] [phone] Ping Moore PA [facility] [place] [address] documented as of this encounter Procedures Procedure Name Priority Date/Time Associated Diagnosis Comments XR PELVIS AND HIP 2 VIEWS LEFT Routine 11/17/2020 12:20 PM EDT Primary osteoarthritis of left hip Left leg pain documented in this encounter Results * XR Pelvis and Hip 2 Views Left (11/17/2020 12:20 PM EDT) Anatomical Region Laterality Modality Pelvis, Hip Left Digital Radiogra phy Impressions 11/17/2020 12:27 PM EDT Status post left total hip arthroplasty without radiographic evidence of hardware complication. Thank you for letting us participate in the care of this patient. ??If you are a health care provider and have any questions regarding this report, please contact the number below. ??For patients who have questions please contact the health child care development specialist that requested your imaging first. ? Narrative 11/17/2020 12:27 PM EDT EXAMINATION: XR PELVIS AND HIP 2 VIEWS LEFT CLINICAL HISTORY: History of hip replacement TECHNIQUE: 3 views of the pelvis and hips COMPARISON: 10/10/2020 FINDINGS: No displaced pelvic fracture. Frontal evaluation of the pelvis demonstrates similar right hip osteophytes and mild joint space narrowing. There is a left total hip arthroplasty with normal alignment. No periprosthetic lucency or fracture. Procedure Note Claudio Ward MD - 11/17/2020 EXAMINATION: XR PELVIS AND HIP 2 VIEWS LEFT CLINICAL HISTORY: History of hip replacement TECHNIQUE: 3 views of the pelvis and hips COMPARISON: 10/10/2020 FINDINGS: No displaced pelvic fracture. Frontal evaluation of the pelvisdemonstrates similar right hip osteophytes and mild joint space narrowing. There is aleft total hip arthroplasty with normal alignment. No periprosthetic lucencyor fracture. IMPRESSION Status post left total hip arthroplasty without radiographic evidence of hardware complication. Thank you for letting us participate in the care of this patient. If youare a health care provider and have any questions regarding this report,please contact the number below. For patients who have questions please contactthe health child care development specialist that requested your imaging first. Ismael Wu MD IMG DX ORDERABLES documented in this encounter Visit Diagnoses Diagnosis Primary osteoarthritis of left hip Primary localized osteoarthrosis, pelvic region and thigh Left leg pain Pain in limb documented in this encounter Care Teams Parlor Maid Relationship Specialty Start Date End Date Alo Carey DO [address] [place] [address] [place] [address] PCP - General Internal Medicine 08/31/20 07/03/23 documented as of this encounter
--- OUTSIDE RECORDS SUMMARY | 2023-10-06 00:44 | XMS_ITS | Encounter Summary ---
[place] [address] Care Team Providers Care Frame Opener Name Role Phone CherryAlo Lon RUTHERFORD Primary Care Provider [phone] Reason for Visit * Auth/Cert Specialty Diagnoses / Procedures Referred By Marques livingston Referred To Contact Diagnoses Left hip osteoarthritis Procedures PRO TOTAL HIP ARTHROPLASTY TOTAL HIP ARTHROPLASTY - POSTERIOR (WRVU 20.72) MODIFIER ACTIS HIP STEM DEPUY MODIFIER PINNACLE ACETABULUM DEPUY Referral ID Status Reason Start Date Expiration Date Visits Re quested Visits Authorized [id number] 1 1 Encounter Details Date Type Department Care Team (Late st Contact Info) Description 10/10/2020 3:25 PM EDT - 10/10/2020 6:55 PM EDT Surgery [place] [address] Ismael Wu MD [facility] [place] [address] TOTAL HIP ARTHROPLASTY - POSTERIOR (WRVU 19.6) [...] Sign Reading Time Taken Comments Blood Pressure 143/73 10/10/2020 2:34 PM EDT Pulse 63 10/10/2020 2:34 PM EDT Temperature 36.5 ??C (97.7 ??F) 10/10/2020 2:34 PM ED T Respiratory Rate 16 10/10/2020 2:34 PM EDT Oxygen Saturation 95% 10/10/2020 2:34 PM EDT Inhaled Oxygen Concentration - - Weight 114.8 kg (253 lb 1.4 oz) 10/10/2020 2:34 PM EDT Height 180.3 cm (5' 10.98) 10/10/2020 2:34 PM E DT Body Mass Index 35.31 10/10/2020 2:34 PM EDT documented in this encounter Discharge Summaries * Liz Grimes, SALES PLANNER - 10/11/2020 12:39 PM EDT Discharge Summary Patient Name: Wero Sadler Patient Age: 70 y.o. Language: Italian Race: White Ethnicity: Not nor Admit date: 10/10/2020 Discharge date and time: 10/12/2020 Attending Physician: Ismael Wu MD Discharge Physician: Ismael Wu MD Follow-up Recommendations for Providers: 1. The patient will need to f/u with his Urologist, Dr. Myers, on 10/17/2020, for a voidingtrial. See discharge instructions for additional details. Future Appointments Date Time Provider Department Center 11/17/2020 12:30 PM [facility] DX ROOM 6 MH Xray [facility] Rad 11/17/2020 1:30 PM Ismael Wu MD [facility] ORTH 3C [facility] Inpatient Provider Contact Information: Ismael Wu MD Orthopedics: [phone] After hours and weekends, call [facility] Plastic Process Technician, , and have the Orthopedic resident paged. Discharge Diagnoses (Hospital Problems) and Secondary Diagnoses (Chronic Problems): Active Hospital Problems Diagnosis ??? Primary osteoarthritis of left hip ??? Postoperative urinary retention ??? s/p L JIMI, posterior, Dr. Wu, 10/10/20 ??? Diabetes mellitus Resolved Hospital Problems No resolved problems to display. Active Non-Hospital Problems Diagnosis ??? ASCVD (arteriosclerotic cardiovascular disease) ??? Colorectal cancer ??? Hypercholesterolemia ??? Hypertensive disorder Operations/Major Procedures: 10/10/2020 - 10/11/2020 Surgeon(s) and Role: * Ismael Wu MD - Primary * Mendez Kirk MD - Fellow * Aubrey Quiñonez MD - Resident Procedure(s): LEFT TOTAL HIP ARTHROPLASTY - POSTERIOR MODIFIER ACTIS HIP STEM DEPUY MODIFIER PINNACLE ACETABULUM DEPUY FINDINGS: Severe degenerative disease of the hip involving the femoral head and acetabulum with areas of full thickness cartilage loss. ?? History of Presentation (From Dr. Wu's OP Note): Wero Sadler is a 70 y.o. male with a past medical history as noted below and with a long history of left hip pain and degenerative joint disease. After considering the patient's condition and the [...] loss of function and wishes to proceed. They understand they are at increased risk for infection and wound healing given their history of obesity. He also understood that he is at increased risk of medical complications such as acute myocardial infarction and cerebrovascular event/ stroke due to his history of coronary artery disease and stroke. A signed and witnessed consent was obtained and placed in the chart. ?? Hospital Course: The patient was admitted via Same Day Surgery for the above operation. DVT prophylaxis was: Resume usual ASA 81 mg daily and Plavix 75 mg daily. Patient began rehab on POD#1 for weight bearing as tolerated of left leg and reinforcement of the ENHANCED JIMI Precautions. The patient required straight c ath X 3. Flomax was started. On POD#2, a witt catheter was inserted. He will f/u with his Urologist, Dr. Myers, on 10/17/20 for a voiding trial. He will continue Flomax until this appointment. The left hip silver Mepilex dressing to remain in place 7 days, was inspected on POD#2 and was dry and intact. Pain was well controlled with oral pain medications. Patient did not have a bowel movement prior to discharge but was passing flatus and was taking a diet without difficulty. By POD#2, the patient was medically stable and was cleared for safe dischargeto home per PT. Of Note: The patient received dexamethasone 8 mg perioperatively. After surgery, his blood sugar was elevated and he was covered by sliding scale insulin. He is on Metformin at baseline. By POD#2, his blood sugars were better controlled. The patient will monitor his blood sugars at home and contact his PCP for f/u if blood sugars should remain elevated. Vital Signs at Discharge: Weight: Wt Readings from Last 1 Encounters: 10/10/20 114.8 kg (253 lb 1.4 oz) Height: Ht Readings from Last 1 Encounters: 10/10/20 180.3 cm (5' 10.98) HC: HC Readings from Last 1 Encounters: No data found for HC BMI: Body mass index is 35.31 kg/m??. Last value Range last 24 hrs Temperature Temp: 36.8 ??C (98.2 ??F) Temp: [36.6 ??C (97.9 ??F)-36.9 ??C (98.4 ??F)] Heart Rate Heart Rate: 73 Heart Rate: -- Blood Pressure BP: 141/61 BP: (123-145)/(61-70) Respiratory Rate Resp: 16 Resp: [15-20] SpO2 SpO2: 92 % SpO2: [92 %-95 %] Art BP BP (Arterial Line): 156/69 BP (Arterial Line): -- Functional and Cognitive Status: Patient mobilizing with a walker, cognitively intact at baseline mental status at time of discharge. Important Lab Data: Last 3 wbc, hgb, hct plt Recent Labs 10/11/20 1043 10/06/20 1459 WBC 13.5* 6.1 HGB 12.4* 14.7 HCT 36.7* 43.3 PLATELET 187 190 Last 3 Lytes Recent Labs 10/11/20 1043 10/06/20 1459 NA 135 141 K 4.4 4.3 CL 100 103 CO2 25 23 BUN 18 13 CREATININE 1.10 0.98 Last 3 LFTs No results for input(s): AST, ALT, ALKPHOS, BILITOT, BILIDIR in the last 7068 hours. Last Ca, Mg, Phos Recent Labs 10/11/20 1043 CALCIUM 8.6 Last 3 HgbA1C No results for input(s): HA1C in the last 7068 hours. Studies: XRay Pelvis (Generic) Result Date: 10/11/2020 EXAMINATION: XR PELVIS (GENERIC) CLINICAL HISTORY: s/p L JIMI TECHNIQUE: AP view of the pelvis. AP view of the left hip. COMPARISON: Same day radiographs No displaced pelvic fracture. There is a new left total hip arthroplasty with normal frontal alignment and no displaced fracture. Similar moderate osteoarthropathy of the right hip. Thank you for letting us participate in the care of this patient. If you are a health care provider and have any questions regarding this report, please contact the number below. For patients who have questions pleasecontact the health care aid that requested your imaging first. Electronically signed by: Claudio Ward MD, [facility] ([phone]), at 10/11/2020 8:33 AM XRay Pelvis (Generic) Result Date: 10/11/2020 EXAMINATION: XR PELVIS (GENERIC) CLINICAL HISTORY: total hip replacement TECHNIQUE: 1 views of the pelvis COMPARISON: Same day radiographs Portable AP radiograph of the pelvis was performed. The upper pelvis is mostly obscured by overlying metallic fixation device. There is a left total hip arthroplasty in progress. Normal pubic symphysis. No displaced fracture of the pubic rami. Thank you for letting us participate in the care of this patient. If you are a health care provider and have any questions regarding this report, please contact the number below. For patients who have questions please contact the health care aid that requested your imaging first. ay Hip 1 view Left Result Date: 10/11/2020 EXAMINATION: XR HIP 1 VIEW LEFT CLINICAL HISTORY: hip arthroplasty TECHNIQUE: 1 views of the LEFT hip COMPARISON: Same day radiographs Intraoperative AP view of the left hip demonstrates left total hip arthroplasty in progress with fitting of temporary acetabular cup and femoral stem component. No displaced fracture. Thank you for letting us participate in the care of this patient. If you are a health care provider and have any questions regarding this report, please contact the number below. For patients who have questions please contact the health care aid that requested your imaging first. Electronically signed by:Claudio Ward MD, [facility] ([phone]), at 10/11/2020 8:31 AM XRay Hip 1 view Left Result Date: 10/11/2020 EXAMINATION: XR HIP 1 VIEW LEFT CLINICAL HISTORY: hip arthroplasty TECHNIQUE: 1 views of the LEFT hip COMPARISON: 09/15/2020 Portable AP view demonstrates left total hip arthroplasty in progress with sitting of temporary acetabular cup and the temporary femoral stem. No displaced fracture. Thank you for letting us participate in the care of this patient. If you are a health care provider and have any questions regarding this report, please contact the number below. For patients who have questions please contact the health care aid that requested your imaging first. Pending Studies and Lab Data at Discharge: None Transfusions: No Discharge Conditions/Prognosis: Stable, awake, and alert. Mobilizing as noted above, pain controlled on oral medications. Discharge to: Home with VNA. Updated Allergies/ADRs: Allergies Allergen Reactions ??? Other [Unclassified Drug] Had reaction to a dye used during vascular procedure at [facility] in [place] Immunizations Given this Hospitalization: There is no immunization history on file for this patient. Discharge Medications: Your Medications New Medications Dose Details acetaminophen 500 mg Tab Commonly known as: Tylenol Take 2 tablets by mouth every 8 hours. Continue the Tylenol around the clock for 10 days after surgery, (10/20/2020). Then may take if needed per package insert. Do not take more than 3,000 mg of Tylenol in 24 hours. 1,000 mg Refills: 0 oxyCODONE 5 mg Tab Commonly known as: Roxicodone Take 1-2 tablets by mouth every 4 hours as needed for Pain (acute post-op surgical pain). 5-10 mg Quantity: 25 tablet Refills: 0 polyethylene glycoL 17 gram Pwpk Commonly known as: Miralax Take 17 g by mouth 2 times daily. 17 g Refills: 0 senna-docusate 8.6-50 mg Tab Commonly known as: Pericolace Take 2 tablets by mouth 2 times daily. 2 tablet Refills: 0 tamsulosin 0.4 mg Cap Commonly known as: Flomax Take 1 capsule by mouth daily. Start taking on: October 13, 2020 0.4 mg Quantity: 14 tablet Refills: 0 Continued medications, unchanged Dose Details amLODIPine 10 mg Tab Commonly known as: Norvasc Take 10 mg by mouth daily. 10 mg Refills: 0 aspirin EC 81 mg Tbec Take 81 mg by mouth daily. 81 mg Refills: 0 atorvastatin 40 mg Tab Commonly known as: Lipitor Daily. Refills: 0 carvediloL 12.5 mg Tab Commonly known as: Coreg Take 12.5 mg by mouth 2 times daily (with meals). 12.5 mg Refills: 0 clopidogreL 75 mg Tab Commonly known as: Plavix clopidogrel 75 mg tablet Refills: 0 fish oil-omega-3 fatty acids 1,000 mg Cap Take 2 g by mouth daily. 2 g Refills: 0 metFORMIN 1,000 mg Tab Commonly known as: GLUCOPHAGE Take 1,000 mg by mouth 2 times daily (with meals). 1,000 mg Refills: 0 STOPPED Medications amoxicillin-clavulanate 875-125 mg Tab Commonly known as: Augmentin clindamycin 300 mg Cap Commonly known as: CLEOCIN glimepiride 1 mg Tab Commonly known as: Amaryl Smoking Status at Discharge: Social History Tobacco Use Smoking Status Former Smoker ??? Types: Cigarettes ??? Quit date: 1992 ??? Years since quittin.6 Smokeless Tobacco Never Used Instructions Given to Patient at Discharge: Patient Instructions Activity: 1. Your weight-bearing status is - weight bearing as tolerated of left leg. 2. Remember to use a walker [...] remind you not to cross your legs. Anticoagulation: Resume usual Aspirin and Plavix- You are being discharged on enteric-coated Aspirin 81 mg by mouth daily and Plavix 75 mg by mouth daily. Continue indefinitely as before surgery. Diet: Resume your usual diet but increase your intake of fluids and fiber while you are on narcoticpain meds to prevent constipation. Driving: None until you are cleared to do so by your Orthopedic surgeon. You should not drive whileyou are on narcotic pain meds as they can affect your judgment and reaction time. Call your surgeonwith any questions/concerns. Medications: 1. The pain medication you are on can cause constipation so increase your intake of fluids and fiber while you are on them. The stool softener, Pericolace, that has been prescribed can also be taken to facilitate a bowel movement. You can also take an ostn-cyh-bjaxtxc medication, Miralax if needed to combat constipation. 2. If you need a renewal on your narcotic pain medication, you need to give the Orthopedic clinic enough time to process your request. This can take up to three days, so plan accordingly. 3. Continue acetaminophen (Tylenol) 1,000mg every 8 hours around the clock until 10/20/2020 (for tendays after your surgery). This can be effective in controlling pain along with your other medications. After that you can take Tylenol as needed per package insert. Do not take more than 3,000mg of acetaminophen in a 24 hour period. 4. You have been discharged on a short acting narcotic, oxycodone. You will be on this medication for a limited period of time only. Take the smallest dose possible to control your pain. As your painimproves take smaller, less frequent doses. You may break the tablet to achieve a smaller dose. 5. You have been discharged on the medication, tamsulosin (Flomax). This medication is used in men to treat the symptoms of an enlarged prostate (benign prostatic hyperplasia-BPH). Tamsulosin is known as an alpha-breanna and works by relaxing muscles in the bladder and prostate. Relaxing these muscles helps to relieve symptoms of BPH such as difficulty in beginning the flow of urine, weak stream,and the need to urinate frequently or urgently (including during the middle of the night). Ask yourUrologist, Dr. Myers, if you should continue this medication. You will need another prescription if you will continue. 6. You received a steroid during surgery which caused your blood sugars to be elevated after surgery. You were on sliding scale insulin. Prior to your discharge, your blood sugars improved. Continue to monitor your blood sugar 1-2 times a day and record. If your blood sugar is above 250, contact your Primary Care Provider for further evaluation. Your blood sugar should return to normal 48-72 hours after surgery. Shower (internal sutures): 1. You can shower [...] operative dressing 7 days after your surgery (10/17/2020). When it is removed you can leave the incision open to air or cover it with a light dressing. Some patients have an additional item called Prineo on their skin. If you have this it will appear as a mesh dressing directly over the incision. Please leave this in place until your follow up with orthopedics. 3. If you have lots of drainage when you get home (and it is before 10/17/2020), remove the operative dressing and replace it with dry sterile gauze. Continue with daily dressing changes (and as needed) until the drainage stops, then remove the dressing and leave the incision open to air or lightly covered. Witt Catheter: Because you had urinary retention after surgery, a witt catheter was inserted on 10/12/2020. The witt catheter will remain in place for 5-7 days. You will need to follow-up with your Urologist, Dr. Myers, for a voiding trial to make sure you are able to urinate on your own. You have an appointment on 10/17/2020, at 8:[address] Myers will have you come back later in the day to make sureyou are able to urinate on your own. He will tell you what time to come back at your 8:40 am appt.. You may wear the leg bag during the day and attach the larger bag at night. Empty the bag every 4-6hours and as needed. Clean around the catheter insertion site 2-3 times a day and as needed. See attached information sheet regarding catheter care. Misc: 1. Remember that ICE and elevation are very important after surgery to help decrease swelling and control pain. Use ICE for 20-30 minutes at a time and keep your leg elevated as much as possible. Call your doctor ([phone]) if you develop: 1. Fever greater than 100.5 2. Severe nausea or vomiting 3. Increasing pain that is not controlled by pain medications 4. Increasing redness, swelling, or drainage from incisions 5. Change in sensation FOLLOW-UP APPOINTMENTS: 1. You will have follow-up appointments at [facility] as indicated below in Future Appointment and Orders. 2. You will need to have x-rays prior to your follow-up appointment on 11/17/2020. Please come to Radiology, desk 3T, 1 hour BEFORE that appointment for these x-rays. Future Appointments Date Time Provider Department Center 11/17/2020 12:30 PM [facility] DX ROOM 6 MH Xray [facility] Rad 11/17/2020 1:30 PM Ismael Wu MD [facility] ORTH 3C [facility] If you have questions or concerns: Saturday through Saturday, 8 AM - 5 PM, please call Dr. Ismael Wu MD's office at . If it is after 5 PM, the weekend, or holidays, please call and ask to speak with theOrthopedic resident on-call. General Instructions None Future Appointments and Orders Future Appointments and Orders Future Appointments Provider Department Dept Phone 11/17/2020 12:30 PM [facility] DX ROOM 6 XRay at [facility] Arrive at: [facility] [phone] Please go to [facility]T ([facility]). 11/17/2020 1:30 PM Ismael Wu MD Orthopaedics at [facility] Arrive at: [facility] [phone] Future Orders Complete By Expires Referral to Home Health - at DISCHARGE [[id number] CPT(R)] As directed Process Instructions: Scheduling Instructions: Comments: DOCUMENTATION FOR [facility] SERVICES (INCLUDING PATIENTS WITH MEDICARE COVERAGE BEING DISCHARGED HOME WITH VNA SERVICES AND/OR HOSPICE SERVICES) PATIENT'S LOCATION: Wero Sadler Discharge to own home: [address] [place] [address] Internal Wholesaler's Name: self/patient In discussion with the attending physician, it is certified that this patient is under their care and that they, or a nurse practitioner, clinical nurse specialist or physician's bindery library technical assistant who is working directly with them, had a face to face encounter that meets the physician face to face encounter requirements with this patient on 10/11/2020 The encounter with the patient was in whole, or in part, for the following medical condition, whichis the primary reason for home health care services: s/p left JIMI 10/10/2020. In discussion with the primary medical team, it is certified that, based on their findings, the indicated services are medically necessary and appropriate for home health services. HOME HEALTH AGENCY: [facility] PHONE: [phone] FAX: [phone] Care Home(SN) eval if indicated on admission visit Witt catheter was inserted 10/12/20. Will f/u with his Urologist, Dr. Myers, on 10/17/20, for a voiding trial. Reinforce catheter care if needed. Activity: WBAT LLE, enhanced precautions Closure: Resorbable sutures Dressing: mepilex 7 days Do not lift the edge of the mepilex dressing to observe the incision; this dressing needs to stay in place until 7 days after surgery. Continue PT rehab for balance, endurance, joint mobility, ROM, Strength, JIMI protocol HIP PRECAUTIONS: Enhanced: DO NOT flex the operative leg more than 90 degrees. DO NOT cross your legs. USE a raised seating / toilet seat. Use a pillow or the Abduction pillow between your legs to remind you not to cross your legs. OT: assess and continue rehab for ??managing ADL's. FOR MEDICARE ONLY: (please delete this section if not Medicare) In discussion with the attending physician, it is certified that the clinical findings support thatthis patient is homebound ;i.e. absences from home require considerable and taxing effort due to: requires assistance of another to navigate community surfaces Please note that any additional orders needs or changes will need to be obtained from this patient's PCP: Alo Carey DO [address] [place] [address] [place] [address] All A agencies which cover patient's residence area have been reviewed, either verbally or in writing, and patient/family have chosen the indicated home health agency. Questions: Agency name and contact information: [facility] Patient location post discharge: home What services are requested: Physical Therapy Occupational Therapy Start date: Responsible MD post discharge contact info: Primary Care Provider: Alo Carey DO [phone] Discharge References/Attachments INDWELLING URINARY CATHETER CARE: GENERAL INFO (BOTSWANAN) URINARY RETENTION (BOTSWANAN) documented in this encounter Discharge Instructions * Patient Instructions* Liz Grimes, ARNOLD - 10/11/2020 12:32 PM EDT Activity: 1. Your weight-bearing status is - weight bearing as tolerated of left leg. 2. Remember to use a walker [...] remind you not to cross your legs. Anticoagulation: Resume usual Aspirin and Plavix- You are being discharged on enteric-coated Aspirin 81 mg by mouth daily and Plavix 75 mg by mouth daily. Continue indefinitely as before surgery. Diet: Resume your usual diet but increase your intake of fluids and fiber while you are on narcoticpain meds to prevent constipation. Driving: None until you are cleared to do so by your Orthopedic surgeon. You should not drive whileyou are on narcotic pain meds as they can affect your judgment and reaction time. Call your surgeonwith any questions/concerns. Medications: 1. The pain medication you are on can cause constipation so increase your intake of fluids and fiber while you are on them. The stool softener, Pericolace, that has been prescribed can also be taken to facilitate a bowel movement. You can also take an xnrj-frb-nlzagih medication, Miralax if needed to combat constipation. 2. If you need a renewal on your narcotic pain medication, you need to give the Orthopedic clinic enough time to process your request. This can take up to three days, so plan accordingly. 3. Continue acetaminophen (Tylenol) 1,000mg every 8 hours around the clock until 10/20/2020 (for tendays after your surgery). This can be effective in controlling pain along with your other medications. After that you can take Tylenol as needed per package insert. Do not take more than 3,000mg of acetaminophen in a 24 hour period. 4. You have been discharged on a short acting narcotic, oxycodone. You will be on this medication for a limited period of time only. Take the smallest dose possible to control your pain. As your painimproves take smaller, less frequent doses. You may break the tablet to achieve a smaller dose. 5. You have been discharged on the medication, tamsulosin (Flomax). This medication is used in men to treat the symptoms of an enlarged prostate (benign prostatic hyperplasia-BPH). Tamsulosin is known as an alpha-breanna and works by relaxing muscles in the bladder and prostate. Relaxing these muscles helps to relieve symptoms of BPH such as difficulty in beginning the flow of urine, weak stream,and the need to urinate frequently or urgently (including during the middle of the night). Ask yourUrologist, Dr. Myers, if you should continue this medication. You will need another prescription if you will continue. 6. You received a steroid during surgery which caused your blood sugars to be elevated after surgery. You were on sliding scale insulin. Prior to your discharge, your blood sugars improved. Continue to monitor your blood sugar 1-2 times a day and record. If your blood sugar is above 250, contact your Primary Care Provider for further evaluation. Your blood sugar should return to normal 48-72 hours after surgery. Shower (internal sutures): 1. You can shower [...] operative dressing 7 days after your surgery (10/17/2020). When it is removed you can leave the incision open to air or cover it with a light dressing. Some patients have an additional item called Prineo on their skin. If you have this it will appear as a mesh dressing directly over the incision. Please leave this in place until your follow up with orthopedics. 3. If you have lots of drainage when you get home (and it is before 10/17/2020), remove the operative dressing and replace it with dry sterile gauze. Continue with daily dressing changes (and as needed) until the drainage stops, then remove the dressing and leave the incision open to air or lightly covered. Witt Catheter: Because you had urinary retention after surgery, a witt catheter was inserted on 10/12/2020. The witt catheter will remain in place for 5-7 days. You will need to follow-up with your Urologist, Dr. Myers, for a voiding trial to make sure you are able to urinate on your own. You have an appointment on 10/17/2020, at 8:[address] Myers will have you come back later in the day to make sureyou are able to urinate on your own. He will tell you what time to come back at your 8:40 am appt.. You may wear the leg bag during the day and attach the larger bag at night. Empty the bag every 4-6hours and as needed. Clean around the catheter insertion site 2-3 times a day and as needed. See attached information sheet regarding catheter care. Misc: 1. Remember that ICE and elevation are very important after surgery to help decrease swelling and control pain. Use ICE for 20-30 minutes at a time and keep your leg elevated as much as possible. Call your doctor ([phone]) if you develop: 1. Fever greater than 100.5 2. Severe nausea or vomiting 3. Increasing pain that is not controlled by pain medications 4. Increasing redness, swelling, or drainage from incisions 5. Change in sensation FOLLOW-UP APPOINTMENTS: 1. You will have follow-up appointments at [facility] as indicated below in Future Appointment and Orders. 2. You will need to have x-rays prior to your follow-up appointment on 11/17/2020. Please come to Radiology, desk 3T, 1 hour BEFORE that appointment for these x-rays. Future Appointments Date Time Provider Department Center 11/17/2020 12:30 PM [facility] DX ROOM 6 Xray [facility] Rad 11/17/2020 1:30 PM Ismael Wu MD [facility] ORTH 3C [facility] If you have questions or concerns: Saturday through Saturday, 8 AM - 5 PM, please call Dr. Ismael Wu MD's office at . If it is after 5 PM, the weekend, or holidays, please call and [facility]. * Attachments The following attachments cannot be sent through Care Everywhere. * INDWELLING URINARY CATHETER CARE: GENERAL INFO (BOTSWANAN) * URINARY RETENTION (BOTSWANAN) documented in this encounter Medications at Time [...] as of this encounter Progress Notes * Savanah Guadalupe RN - 10/12/2020 10:49 AM EDT Patient discharged to home with VNA services. IV removed, site benign. My assessment remains unchanged from my previous assessment. Patient denies chest pain and shortness of breath. Discussed pain management with patient, pain tolerable. Patient medicated prior to discharge. Patient has all belongings. Patient received discharge summary. Witt care education provided. Indwelling urinary catheterteaching completed. Pt demonstrated ability to change from drainage bag to leg bag. Verbalized understanding of witt care, indication of catheter use, and proper management. All catheter supplies sent home with pt. All questions answered. Patient encouraged to call with questions or concerns. Patient discharged to home with family. Discharge Summary was faxed to [facility]NA. * Aubrey Quiñonez MD - 10/12/2020 6:23 AM EDT ORTHOPAEDIC SURGERY INPATIENT PROGRESS NOTE Patient Name: Wero Sadler Age: 70 y.o. Surgery/Issue: Left Total Hip Arthroplasty Attending: Dr. Wu Date of surgery: 10/10/2020 - 10/11/2020 SUBJECTIVE / INTERVAL HISTORY: No acute events overnight, VSS, satting on NC. Patient states he has almost no pain in his hip. He slept very well. Eating and drinking without issue. Straight cathed 2x overnight for 1.1L and 900 mL. Just voided 275, bladder scan with 800 mL PVR, will try to void again. Cleared with PT yesterday.Morning labs pending. Denies CP, SOB, nausea , vomiting, numbness/weakness. Patient has had good PO intake. FOCUSED REVIEW OF SYSTEMS: as above. Active Hospital Problems Diagnosis ??? Primary osteoarthritis of left hip ??? s/p L JIMI, posterior, Dr. Wu, 10/10/20 ??? Diabetes mellitus Resolved Hospital Problems No resolved problems to display. Active Non-Hospital Problems Diagnosis ??? ASCVD (arteriosclerotic cardiovascular disease) ??? Colorectal cancer ??? Hypercholesterolemia ??? Hypertensive disorder MEDICATIONS: ??? amLODIPine (Norvasc) tablet 10 mg ??? aspirin EC tablet 81 mg ??? atorvastatin (Lipitor) tablet 40 mg ??? carvediloL (Coreg) tablet 12.5 mg ??? glimepiride (Amaryl) tablet 1 mg ??? metFORMIN (Glucophage) tablet 1,000 mg ??? sodium chloride 0.9 % (flush) (BD [...] ??? bisacodyL (Dulcolax) suppository 10 mg ??? celecoxib (CeleBREX) capsule 200 mg ??? pantoprazole EC (Protonix) tablet 20 mg ??? ondansetron (Zofran) tablet 4 mg OR ondansetron (pf) (Zofran) (2 mg/mL) injection 4 mg ??? tamsulosin (Flomax) capsule 0.4 mg ??? POCT Fingerstick Glucose AND insulin lispro (HumaLOG;Admelog) (100 unit/mL) subcutaneous injection vial 1-6 Units ??? clopidogreL (Plavix) tablet 75 mg ??? acetaminophen (Tylenol) tablet 1,000 mg ??? ketorolac (Toradol) (15 mg/mL) injection 15 mg ??? sodium chloride 0.9% infusion ??? oxyCODONE (Roxicodone) tablet 5-15 mg ??? cloNIDine (pf) (Duraclon) (100 mcg/mL) Epidural injection ??? ketorolac (Toradol) (30 mg/mL) injection ??? BUpivacaine (pf) (Marcaine) (2.5 mg/mL) 0.25% injection ??? glucose (GLUTOSE) 40% oral geL OR dextrose 10% infusion OR glucagon (Glucagen) (1 mg/mL) injection solution 1 mg ??? sodium chloride 0.9% 1,000 mL (10/12/20 0428) OBJECTIVE: Temp: [36.6 ??C (97.9 ??F)-36.9 ??C (98.4 ??F)] Resp: [15-20] BP: (114-145)/(61-70) Intake/Output Summary (Last 24 hours) at 10/12/2020 0623 Last data filed at 10/12/2020 0608 Gross per 24 hour Intake 4484 ml Output 5350 ml Net -866 ml Body mass index is 35.31 kg/m??. PE: General: NAD, awake/alert CV: RRR assessed peripherally Resp: Breathing comfortably on2L NC LLE: Dressing c/d/i. Motor intact to EHL, FHL, TA. Sensation intact in foot/calf/thigh. Brisk capillary refill distally. Abduction pillow in place. Lab Results Component Value Date NA 135 10/11/2020 K 4.4 10/11/2020 CL 100 10/11/2020 CO2 25 10/11/2020 BUN 18 10/11/2020 CREATININE 1.10 10/11/2020 GLUCOSE 231 (H) 10/11/2020 CALCIUM 8.6 10/11/2020 Lab Results Component Value Date WBC 13.5 (H) 10/11/2020 HGB 12.4 (L) 10/11/2020 HCT 36.7 (L) 10/11/2020 MCV 94.8 (H) 10/11/2020 PLATELET 187 10/11/2020 Lab Results Component Value Date INR 1.0 10/06/2020 Imaging: AP Pelvis The left hip is reduced. There is no evidence of intra-op fracture. ASSESSMENT / PLAN: Wero Sadler is a 70 y.o. male 2 Days Post-Op s/p left JIMI, progressing well with stable vitals. Discharge pending evaluation by PT/OT on POD1. As patient has already been straight cath'ed several times with high PVR if unable to adequately void will place witt catheter with plan for 7 days bladder rest and outpatient void trial. Activity: WBAT LLE, enhanced precautions Closure: Resorbable sutures Dressing: mepilex 7 days Anticoagulation: Home ASA & Plavix Antibiotics: periop Consults: PT/OT Dispo: pending PT/OT dedra Quiñonez MD 10/12/2020 Future Appointments Date Time Provider Department Center 11/17/2020 12:30 PM [facility] DX ROOM 6 MH Xray [facility] Rad 11/17/2020 1:30 PM Ismael Wu MD [facility] ORTH 3C [facility] Associated attestation - Ismael Wu MD - 10/12/2020 9:51 AM EDT Images from the original note were not included. Department of Orthopaedics Division of Adult Joint Reconstructive Surgery October 12, 2020 I had the pleasure of evaluating Wero Sadler in the hospital in conjunction with Dr. Quiñonez. I have seen and examined the patient and reviewed the history/physical and I agree with the details as written. The assessment and plan were formulated in discussion with me and I agree with them as documented. Ismael Wu MD, MSc Division of Adult Reconstructive Keeper [employer] Orthopaedics Department of Orthopaedics [facility] [phone] [email or web address] * Savanah Guadalupe RN - 10/11/2020 5:44 PM EDT OUTCOME EVALUATION NOTE: OUTCOME SUMMARY: Patient progressing towards d/c goals appropriately at this time. Patient a/ox4, denies SOB, CP, dizziness, and N/V. 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 Patient's pain adequately controlled with scheduled and PRN medications, see MAR for medications given. VSS onRA. Dressing to L hip C/D/I, no drainage. Abduction pillow used while in bed. PIV intact, IVF running. Tolerating carb control diet well. [employer]. Blood glucose elevated, controlled with insulin. Straight catheterized at start of shift for 900cc r/t retention. IVF bolus given 1x, PO fluids encouraged, and ambulation encouraged. Pt able to void small quantities with PVRs trending in the 500s and 600s throughout the shift. Pt kept overnight to improve urinary elimination prior to discharge. Plan Moving Forward is to d/c home tomorrow once medically ready. Will continue to monitor and help patient reach d/c goals. PLAN MOVING FORWARD: Pain control Mobilize frequently Monitor UO and PVRs Encourage PO fluids Monitor blood glucose D/C planning INDIVIDUALIZED FALL PREVENTION: Patient is currently a high risk to Fall. Patient educated on bed/chair alarm, demonstrates proper use of call mcdonnell and verbalizes understanding of fall preventions implemented. Patient-specific fall risk factors per assessment: [current deficits]: PIV, LLE weakness, Blindness, Pain, Medications, Hospital Environment, Impaired Mobility, Recent Surgery Assistance [level of assistance required for transfers and ambulation]: 1A with FWW Supervision [direct monitoring required during toileting and ADLs]: Moderate assistance with ADL's Surveillance [continuous indirect monitoring]: Masimo, Purposeful Rounding, Nurse Knowledge Exchange at Bedside, Bed Alarm Set * Bela Schreiber, PT - 10/11/2020 10:50 AM EDT Physical Therapy Evaluation Patient profile: 70 y.o legally blind male with B hip OA L>R now s/p posterior JIMI. Some difficulty with urinary retention post operatively. Patient with the following active problems: Past Medical History: Diagnosis Date ??? Claudication [...] 20.72) performed by Ismael Wu MD at [facility] MAIN OR Active Non-Hospital Problems Diagnosis ??? Colorectal cancer Social History: Home set-up: Lives with his two brothers in a multi level home. He remains on the first level. Bathroom Set-up: tub shower with bars, regular toilet Stairs: 2 CLARIBEL with 2x4 to grab on the R hand side when ascending Baseline Mobility: independent with cane when outside, brothers do the driving, he is retired, could walk 100' prior to needing to sit secondary to hip pain Equipment at home: FWW, cane Fall history: none reported Precautions/Special Considerations: skin breakdown risk Lines: PIV Activity Orders: WBAT, enhanced hip precautions (no adduction, internal rotation, or flexion degrees, wedge at night) Mobility and Positioning Recommendations: ?? Pt. to utilize FWW and supervision for ambulation and transfers with nursing. ?? Please encourage up to chair for meal times as able. ?? Pt encouraged to ambulate frequently with staff, getting into the bathroom for toileting and walking out in the adan >/= 3 times daily as able. Subjective: It's good. Dr Wu said it might be a different length after surgery and I said you will have to call me 'Linsey'.?? Objective: Pt seen for evaluation today. Pain: Number Location At rest 0/10 With activity 0/10 Vital Signs/Cardiopulmonary: At Rest With Activity SpO2 (RA) 94% % BP (MAP) 135/79mmHg mmHg HR 90bpm bpm *remained with OT at end of session Mental Status: alert, oriented to person, place, and time Vision: impaired, legally blind, has apt with [employer] [facility] [employer] next week Skin: dressing intact Musculoskeletal: ROM: limitations per precautions Strength: at least 3-/5 B LEs Sensation: not tested Bed Mobility: Supine to Sit: flat bed, supervised with cues for technique given precautions Sit to Supine: not tested, remained with OT Transfers: Sit to Stand: supervised up to FWW, cues for hand placement Stand to Sit: supervised from FWW, cues for hand placement, foot placement, precautions Bed to Chair: not tested Gait: Distance: 150' Device used: FWW Level of assist: supervised Gait mechanics: swing through, no antalgia, steady Stairs: ascended/descended 1(6) stair with R post and L UE support to mimic cane, reviewed walker management and stair technique, performed x2 reps, verbalized technique at end of session Balance: Sitting Static: good Sitting Dynamic: good Standing Static: good Standing Dynamic / Gait: good Education/Exercise Instruction: issued handout however patient could not review secondary to visualimpairment. Discussed d/c planning, car transfers, and home services (PT and OT). Assessment: Wero Sadler was seen today for physical therapy evaluation. Pt presents with impairedintegument, ROM limitations secondary to precautions, and mild gait deviations requiring FWW use. He is mobilizing well with a FWW. Requires reminders for precautions otherwise all goals have been met. He has good support from his brothers He would benefit from home PT to address home safety given precautions and visual impairment impacting his ability to review exercise handouts. Recommend discharge to home with home PT once medically cleared. No further acute PT needs identified and he will be monitored until formal discharge. Plan: Therapy Frequency (PT): Monitor. Patient/family understand and agree with plan as stated above. Discharge Recommendations: Based on the current findings, when medically ready for hospital discharge: -Anticipated Discharge Disposition (PT): home with home health Consult Recommendations: No other consults recommended at this time. Equipment needs: Anticipated Equipment Needs at Discharge (PT): (see OT recs) Patient status, treatment, and mobility recommendations discussed with nursing. Thank you for this consult. Time IN / OUT: 8085-3335 Total Minutes, Physical Therapy: 40 (low complexity) 2017 PT Evaluation Code Rationale: ?? Diagnosis [...] functional performance as outlined in this evaluation. * Danni Orona, OT - 10/11/2020 9:34 AM EDT Occupational Therapy Evaluation Patient profile: Wero Sadler is a 70 y.o. male admitted on 10/10/2020 for L total hip arthroplasty. Past Medical History: Diagnosis Date ??? Claudication [...] 20.72) performed by Ismael Wu MD at [facility] MAIN OR Social History: Patient lives with his 2 brothers and one of his brother's daughter (only there on weekends). He reports his brothers are retired and could assist him if needed. Home Setup: 2 small steps to enter, 2 levels but can stay on the 1st level, has a tub shower w/ a grab bar (but low), has a toilet w/ a windowsill on one side and a 1/2 wall on the other DME: access to a walker Baseline ADL/Mobility: Pt was independent w/ ADL's and some IaDL's. He does not drive. He reports he ambulated w/ a cane but appeared to use it more for his vision impairment to assess for sidewalks,etc. He reports he does the dishes. His brothers cook. He reports he is able to manage his own medications accurately despite his vision. Of note, pt reported his this spring. Precautions/Special Considerations: at risk to fall, LLE WBAT,LLE enhanced hip precautions, low vision Subjective: I was using the cane to help feel curbs, not for my balance. (re: use of a cane before admission) Objective: Seen today for OT evaluation. Cognitive Status/Behavior: ?? Behavior / Mood: alert and cooperative ?? Alert and oriented to: person, place, time and situation ?? Follows commands: 1 step and 100% of the time ?? Attention: WFL ?? Safety awareness: WFL ?? Benefits from cues for precautions Vision & Perception: ?? Low vision ?? Reports he can see outlines and some vibrant colors (but not always accurate colors-thought pinkwas red). ?? He reports he has an appointment w/ [employer] and may get a white cane, has [facility] Communication: WFL Range of motion, strength, coordination: Hand dominance: right Bilateral UEs are within functional limitations LE limitations: s/p L JIMI, enhanced precautions Activities of Daily Living: Self-feeding: seated w/ setup Grooming: standing w/ CGA to SBA and FWW, cue for squaring up Dressing: LB dressing: issued a misdraw hand and soft sockaid, though had difficulty using a soft sockaid (hard sockaids out of stock here)-reported he doesn't wear socks very much and can have assist fornow; donned pants w/ misdraw hand and cues for technique, difficult w/ suspenders but discussed moving them so they don't get caught up Bathing: educated re: technique, but recommend a grab bar, assistance, or use of a shower chair-reports he would feel comfortable w/ his brother(s) helping him if needed. Recommend VNA OT assess safety w/ transfer as dry run before he does it on his own Toileting: Transfer: supervision w/ cues for technique Hygiene: denies challenges Functional Mobility: Supine to sit: supervision to R EOB, cues for technique Sit to stand: supervision with FWW Ambulation: pt ambulated 150' with FWW and CGA, occasional cues to maintain midline in walker Stand to sit: supervision, cue for technique Balance: Sitting balance: good Standing balance: good w/ FWW Vitals: HR: 90's, Sp02: 93% on RA, BP: 135/79 (98) at rest, 133/71 (92) sitting EOB Pain: pt denied pain Education: patient have been educated on Role of occupational therapy/rehabilitation, Transfers, Assistive device/technique, Adaptive equipment training, ADL, Positioning, Safety, Precautions/Protocol, Functional Mobility, Balance, Recommendations and Discharge planning and verbalizes understanding. Patient status, treatment, and mobility recommendations discussed with nursing. Assessment: Pt was seen for occupational therapy evaluation. Wero Sadler presents with the following performance skill deficits and client factors: decreased flexibility/ROM, decreased standing balance requiring use of FWW, visual deficits (baseline), enhanced hip precautions and compromised mobility status. Pt was provided with adaptive equipment and education regarding how to manage his ADL'swhile maintaining precautions. He was able to demonstrate and verbalize understanding. He has support from his brothers available at home. He will benefit from ongoing practice with home VNA OT and PT with further specific guidance with home modifications. Anticipate that pt will return home with as sistance once medically ready. Do not anticipate further OT needs while hospitalized. Equipment needs at discharge: ? Grab bar/shower seat, home OT to further assess and advise Anticipated Discharge Disposition (OT): home with home health (PT and OT) Other Recommendations: ?? Ambulate as tolerated with FWW ?? Encourage participation in ADL's by providing set up A on tray table and physical assist only asneeded. Other Recommendations: No other consults recommended at this time Plan: OT: Therapy Frequency (OT): evaluation only Total Minutes, Occupational Therapy: 54 (initial evaluation) 2017 OT Evaluation Code Rationale: ?? Diagnosis [...] instrument and measurable assessment of functional outcome. Pager: [phone] DANNI ORONA OT 10/11/2020 Occupational Therapy Rehabilitation Department * Aubrey Quiñonez MD - 10/11/2020 6:24 AM EDT ORTHOPAEDIC SURGERY INPATIENT PROGRESS NOTE Patient Name: Wero Sadler Age: 70 y.o. Surgery/Issue: Left Total Hip Arthroplasty Attending: Dr. Wu Date of surgery: 10/10/2020 - 10/11/2020 SUBJECTIVE / INTERVAL HISTORY: No acute events overnight, VSS, satting on NC. Patient states he has almost no pain in his hip. He slept very well in PACU and once he got to the floor. Eating and drinking without issue. Straight cathed for 1.1L in PACU, hasn't felt the need to urinate since. Looking forward to getting moving today with PT/OT. Morning labs pending. Denies CP, SOB, nausea, vomiting, numbness/weakness. Patient has had good PO intake. FOCUSED REVIEW OF SYSTEMS: as above. Active Hospital Problems Diagnosis ??? Primary osteoarthritis of left hip ??? s/p L JIMI, posterior, Dr. Wu, 10/10/20 ??? ASCVD (arteriosclerotic cardiovascular disease) ??? Diabetes mellitus ??? Hypercholesterolemia ??? Hypertensive disorder Resolved Hospital Problems No resolved problems to display. Active Non-Hospital Problems Diagnosis ??? Colorectal cancer MEDICATIONS: ??? amLODIPine (Norvasc) tablet 10 mg ??? aspirin EC tablet 81 mg ??? atorvastatin (Lipitor) tablet 40 mg ??? carvediloL (Coreg) tablet 12.5 mg ??? glimepiride (Amaryl) tablet 1 mg ??? metFORMIN (Glucophage) tablet 1,000 mg ??? sodium chloride 0.9 % (flush) (BD [...] ??? bisacodyL (Dulcolax) suppository 10 mg ??? gabapentin (Neurontin) capsule 600 mg FOLLOWED BY [START ON 10/13/2020] gabapentin (Neurontin) capsule 300 mg ??? celecoxib (CeleBREX) capsule 200 mg ??? dexamethasone (Decadron) tablet 4 mg ??? pantoprazole EC (Protonix) tablet 20 mg ??? ondansetron (Zofran) tablet 4 mg OR ondansetron (pf) (Zofran) (2 mg/mL) injection 4 mg ??? acetaminophen (Tylenol) tablet 1,000 mg ??? ketorolac (Toradol) (15 mg/mL) injection 15 mg ??? sodium chloride 0.9% infusion ??? ceFAZolin (Ancef) 2 g in dextrose 5% 100 mL infusion ??? oxyCODONE (Roxicodone) tablet 5-15 mg ??? cloNIDine (pf) (Duraclon) (100 mcg/mL) Epidural injection ??? ketorolac (Toradol) (30 mg/mL) injection ??? BUpivacaine (pf) (Marcaine) (2.5 mg/mL) 0.25% injection ??? glucose (GLUTOSE) 40% oral geL OR dextrose 10% infusion OR glucagon (Glucagen) (1 mg/mL) injection solution 1 mg ??? POCT Fingerstick Glucose AND insulin lispro (HumaLOG;Admelog) (100 unit/mL) subcutaneous injection vial 1-4 Units ??? [id number] ketamine or placebo 250 mg in sodium chloride 0.9% 250 mL infusion AND INV [id number] patient's specific infusion med #2 1 each ??? sodium chloride 0.9% 1,000 mL (10/10/202132) ??? [id number] ketamine 100 mg/mL or placebo in sodium chloride 0.9% 500 mL infusion Stopped (10/10/202024) And ??? INV [id number] patient's specific infusion med #2 OBJECTIVE: Temp: [36.2 ??C (97.2 ??F)-36.9 ??C (98.4 ??F)] Heart Rate: [63-78] Resp: [9-27] BP: (138-157)/(66-93) Intake/Output Summary (Last 24 hours) at 10/11/2020 0624 Last data filed at 10/11/2020 0400 Gross per 24 hour Intake 1840 ml Output 1400 ml Net 440 ml Body mass index is 35.31 kg/m??. PE: General: NAD, awake/alert CV: RRR assessed peripherally Resp: Breathing comfortably on2L NC LLE: Dressing c/d/i. Motor intact to EHL, FHL, TA. Sensation intact in foot/calf/thigh. Brisk capillary refill distally. Abduction pillow in place. Lab Results Component Value Date NA 141 10/06/2020 K 4.3 10/06/2020 CL 103 10/06/2020 CO2 23 10/06/2020 BUN 13 10/06/2020 CREATININE 0.98 10/06/2020 GLUCOSE 195 10/06/2020 CALCIUM 9.8 10/06/2020 Lab Results Component Value Date WBC 6.1 10/06/2020 HGB 14.7 10/06/2020 HCT 43.3 10/06/2020 MCV 94.1 (H) 10/06/2020 PLATELET 190 10/06/2020 Lab Results Component Value Date INR 1.0 10/06/2020 Imaging: AP Pelvis The left hip is reduced. There is no evidence of intra-op fracture. ASSESSMENT / PLAN: Wero Sadler is a 70 y.o. male 1 Day Post-Op s/p left JIMI, progressing well with stable vitals. Discharge pending evaluation by PT/OT on POD1. Can removed abduction pillow this morning. Activity: WBAT LLE, enhanced precautions Closure: Resorbable sutures Dressing: mepilex 7 days Anticoagulation: Home ASA & Plavix Antibiotics: periop Consults: PT/OT Dispo: pending PT/OT dedra Quiñonez MD 10/11/2020 Future Appointments Date Time Provider Department Center 11/17/2020 12:30 PM [facility] DX ROOM 6 MH Xray [facility] Rad 11/17/2020 1:30 PM Ismael Wu MD [facility] ORTH 3C [facility] Associated attestation - Ismael Wu MD - 10/12/2020 9:51 AM EDT Images from the original note were not included. Department of Orthopaedics Division of Adult Joint Reconstructive Surgery October 12, 2020 I had the pleasure of evaluating Wero Sadler in the hospital in conjunction with Dr. Quiñonez. I have seen and examined the patient and reviewed the history/physical and I agree with the details as written. The assessment and plan were formulated in discussion with me and I agree with them as documented. Ismael Wu MD, MSc Division of Adult Reconstructive Keeper HelperReed Dipper of Orthopaedics Department of Orthopaedics [facility] [phone] [email or web address] * Cayetano Tobar MD - 10/11/2020 12:40 AM EDT ORTHOPAEDIC SURGERY INPATIENT PROGRESS NOTE Patient Name: Wero Sadler Age: 70 y.o. Surgery/Issue: Left Total Hip Arthroplasty Attending: Dr. Wu Date of surgery: 10/10/2020 - 10/11/2020 SUBJECTIVE / INTERVAL HISTORY: Pain well controlled. Denies CP, SOB, nausea, vomiting, numbness/weakness. Patient has had good PO intake. Straight cathed for 1.1L FOCUSED REVIEW OF SYSTEMS: as above. Active Hospital Problems Diagnosis ??? Primary osteoarthritis of left hip ??? s/p L JIMI, posterior, Dr. Wu, 10/10/20 ??? ASCVD (arteriosclerotic cardiovascular disease) ??? Diabetes mellitus ??? Hypercholesterolemia ??? Hypertensive disorder Resolved Hospital Problems No resolved problems to display. Active Non-Hospital Problems Diagnosis ??? Colorectal cancer MEDICATIONS: ??? amLODIPine (Norvasc) tablet 10 mg ??? aspirin EC tablet 81 mg ??? atorvastatin (Lipitor) tablet 40 mg ??? carvediloL (Coreg) tablet 12.5 mg ??? clopidogreL (Plavix) tablet 75 mg ??? glimepiride (Amaryl) tablet 1 mg ??? metFORMIN (Glucophage) tablet 1,000 mg ??? sodium chloride 0.9 % (flush) (BD [...] ??? bisacodyL (Dulcolax) suppository 10 mg ??? gabapentin (Neurontin) capsule 600 mg FOLLOWED BY [START ON 10/13/2020] gabapentin (Neurontin) capsule 300 mg ??? celecoxib (CeleBREX) capsule 200 mg ??? dexamethasone (Decadron) tablet 4 mg ??? pantoprazole EC (Protonix) tablet 20 mg ??? ondansetron (Zofran) tablet 4 mg OR ondansetron (pf) (Zofran) (2 mg/mL) injection 4 mg ??? acetaminophen (Tylenol) tablet 1,000 mg ??? ketorolac (Toradol) (15 mg/mL) injection 15 mg ??? sodium chloride 0.9% infusion ??? ceFAZolin (Ancef) 2 g in dextrose 5% 100 mL infusion ??? oxyCODONE (Roxicodone) tablet 5-15 mg ??? cloNIDine (pf) (Duraclon) (100 mcg/mL) Epidural injection ??? ketorolac (Toradol) (30 mg/mL) injection ??? BUpivacaine (pf) (Marcaine) (2.5 mg/mL) 0.25% injection ??? glucose (GLUTOSE) 40% oral geL OR dextrose 10% infusion OR glucagon (Glucagen) (1 mg/mL) injection solution 1 mg ??? POCT Fingerstick Glucose AND insulin lispro (HumaLOG;Admelog) (100 unit/mL) subcutaneous injection vial 1-4 Units ??? [id number] ketamine or placebo 250 mg in sodium chloride 0.9% 250 mL infusion AND INV [id number] patient's specific infusion med #2 1 each ??? sodium chloride 0.9% 1,000 mL (10/10/202132) ??? [id number] ketamine 100 mg/mL or placebo in sodium chloride 0.9% 500 mL infusion Stopped (10/10/202024) And ??? INV [id number] patient's specific infusion med #2 OBJECTIVE: Temp: [36.2 ??C (97.2 ??F)-36.9 ??C (98.4 ??F)] Heart Rate: [63-78] Resp: [9-27] BP: (138-157)/(66-93) Intake/Output Summary (Last 24 hours) at 10/11/2020 0516 Last data filed at 10/11/2020 0400 Gross per 24 hour Intake 1840 ml Output 1400 ml Net 440 ml Body mass index is 35.31 kg/m??. PE: General: NAD, awake/alert CV: RRR assessed peripherally Resp: Breathing comfortably on2L NC LLE: Dressing c/d/i. Motor intact to EHL, FHL, TA. Sensation intact in foot/calf/thigh. Brisk capillary refill distally. Abduction pillow in place. Lab Results Component Value Date NA 141 10/06/2020 K 4.3 10/06/2020 CL 103 10/06/2020 CO2 23 10/06/2020 BUN 13 10/06/2020 CREATININE 0.98 10/06/2020 GLUCOSE 195 10/06/2020 CALCIUM 9.8 10/06/2020 Lab Results Component Value Date WBC 6.1 10/06/2020 HGB 14.7 10/06/2020 HCT 43.3 10/06/2020 MCV 94.1 (H) 10/06/2020 PLATELET 190 10/06/2020 Lab Results Component Value Date INR 1.0 10/06/2020 Imaging: AP Pelvis The left hip is reduced. There is no evidence of intra-op fracture. ASSESSMENT / PLAN: Wero Sadler is a 70 y.o. male 1 Day Post-Op s/p left JIMI, progressing well with stable vitals. Discharge pending evaluation by PT/OT on POD1. Activity: WBAT LLE, enhanced precautions Closure: Resorbable sutures Dressing: mepilex 7 days Anticoagulation: Home ASA & Plavix Antibiotics: periop Consults: PT/OT Dispo: pending PT/OT dedra Tobar MD 10/11/2020 Future Appointments Date Time Provider Department Center 11/17/2020 12:30 PM [facility] DX ROOM 6 MH Xray [facility] Rad 11/17/2020 1:30 PM Ismael Wu MD [facility] ORTH 3C [facility] Associated attestation - Ismael Wu MD - 10/12/2020 9:53 AM EDT Images from the original note were not included. Department of Orthopaedics Division of Adult Joint Reconstructive Surgery October 12, 2020 I had the pleasure of evaluating Wero Sadler in the hospital in conjunction with Dr. Tobar. I haveseen and examined the patient and reviewed the history/physical and I agree with the details as written. The assessment and plan were formulated in discussion with me and I agree with them as documented. Ismael Wu MD, MSc Division of Adult Reconstructive Keeper HelperReed Dipper of Orthopaedics Department of Orthopaedics [facility] [phone] [email or web address] * Junaid Diallo RN - 10/10/2020 11:19 PM EDT 2229: Report taken from AYE Wong. Patient resting, denies pain or nausea. * Judith Huerta RN - 10/10/2020 9:28 PM EDT Arrived from OR in bed. Attached to monitors and alarms set appropriately for patient. Left hip dressing CDI. 2144: X ray completed 2199: report called to AYE Quintanilla documented in this encounter H&P Notes * Aubrey Quiñonez MD - 10/10/2020 3:31 PM EDT Patient Name: Wero Sadler Patient Age: 70 y.o. Birthdate: 1950 Admit date: 10/10/2020 Attending Physician: Ismael Wu MD The patient's history and physical exam have been reviewed and completed. There has been no interval change from that of the pre-operative history and physical exam done within the last 30 days. Associated attestation - Ismael Wu MD - 10/10/2020 3:39 PM EDT Images from the original note were not included. Department of Orthopaedics Division of Adult Joint Reconstructive Surgery October 10, 2020 I had the pleasure of evaluating [...] Wu MD, MSc Division of Adult Reconstructive Keeper HelperReed Dipper of Orthopaedics Department of Orthopaedics [facility] [phone] [email or web address] documented in this encounter Miscellaneous Notes * Plan of Care - Boone Gonzalez RN - 10/12/2020 1:55 AM EDTSummary: Nursing Care Plan OUTCOME EVALUATION NOTE: OUTCOME SUMMARY: Retention continues to be a barrier for discharge. Patient intermittently cathed for 850 and 1100mlthroughout the night. He was able to void over 400ml in both instances before his PVR was measured.He denies any nausea or emesis and has been tolerating a C.C. diet. CBG checks resulted in supplemental insulin administration twice. Hip incision C/D/I and remains covered with dry sterile silver Mepelex. Care clustered to promote rest. PLAN MOVING FORWARD: VS q4hrs Diet: Carb Control Anticipated discharge: 10/12 with resolution of bladder retention Care Clustered to promote rest INDIVIDUALIZED FALL PREVENTION INTERVENTIONS: Patient-specific fall risk factors per assessment: [current deficits]: Patient's current risk factors include: LLE hip pain, PIV, SCDs, urinary retention, uses an ambulatory aid, noted sensory deficits, and generalized weakness related to current medical status. Assistance [level of assistance required for transfers and ambulation]: 1 assist with the FWW Supervision [direct monitoring required during toileting and ADLs]: eyes on Surveillance [continuous indirect monitoring]: Bed/Chair alarm, yellow fall band, NKE at bedside, purposeful rounding, environmental modification (floor free of clutter, tubing secured), bed in low position, lighting adjusted for task/safety, nonskid slippers when out of bed, wheels locked, call light in reach, upper side-rails raised X2, ID bands on. Patient-specific fall prevention interventions for sensory deficits provided, if applicable: [X] N/A CPG GOAL OUTCOME EVALUATION: * Initial Assessments - Patricia Ramirez RN - 10/11/2020 10:28 AM EDT Office of Care Management Assessment Medical record reviewed. Plan of care and patient status discussed with direct care RN and/or Care Team. Screening: Surgery/Issue: Left Total Hip Arthroplasty Attending: Dr. Wu Date of surgery: 10/10/2020 - 10/11/2020 70 y.o. male Present on Admission: ??? ASCVD (arteriosclerotic cardiovascular disease) ??? Diabetes mellitus ??? Hypercholesterolemia ??? Hypertensive disorder ??? Primary osteoarthritis of left hip Patient has not been admitted to a hospital within the last 30 days. Patient receiving hospital care under Same Day Overnight (OP) status. Admission order reviewe Primary Insurance on file: MEDICARE Secondary Insurance on file: Prescription Insurance: Yes Primary care provider on file: Alo Carey DO [phone] Advance Directive on file and Code Status: <no information>, Attempt Cardiopulmonary Resuscitation - Inpatient The patient will require VNA services post-op: yes, patient/caregivers were educated about their right to choose where referrals are placed patient lives in [place], no preference on VNA. ?? Prep for Surgery Advance Directive: Has one (will bring in copy) Recommend referral to Patient Financial Services: (P) No Living arrangement: (P) House Home layout: (P) Two level, Able to live on main level Number of stairs within home: (P) 13 Who will provide post-op care and support: (P) Brother and [id number] (Damian Sadler and Yaquelin) Who will provide transportation home: (P) Brother (Damian Sadler) Patient's desired discharge disposition: (P) Home with VNA Top 3 nursing choice facilities: (P) None VNA preference: (P) TBD Outpatient PT preference: (P) [facility] PT Discharge barriers and challenges: (P) None ?? The patient prefers two-wheeled walker to help with post-operative ambulation. The patient has a walker and will bring it to surgery. Functional Status prior to admission:independent with ADLs and mobility Functional Status current: assist of staff Living Situation: [address] [facility] [address] Supports: patient has two brothers who are availalble to provide support as needed. DME: has FWW and crtutches Home Health: VNA for PT/OT The patient has been provided a list of Home Health Agencies/DME vendors which serve their preferred geographic area. A letter describing our affiliations was reviewed with them and they were educated about their right to choose where referrals are placed. Patient requests referral to [facility] PHONE: [phone] FAX: [phone] Expected date of discharge: today Referral routed to the Fiscal Officer for matching with agency/vendor and to provide any required information. Assessment: Patient with no apparent or limited RNCM/SW needs at this time. No housing, transportation, insurance, resources concerns identified at this time. Supports in place to achieve a safe post-hospital transition. No identified barriers to accessing necessary care and/or follow-up after discharge. Plan: Patient to d/c to home via private car when medically ready. substation operator helper/Behavioral Health Worker will continue to follow patient???s progress and remain available if situation changes for coordination of care, psychosocial support and/or discharge planning. Patricia Ramirez, RN, [facility] Pager [phone] * Op Note - Ismael Wu MD - 10/10/2020 5:49 PM EDT [facility] Operative Note Patient Name: Wero Sadler : [id number] MR#: [id number] Case Date: 10/10/2020 Surgeon: Surgeon(s) and Role: * Ismael Wu MD - Primary * Mendez Kirk MD - Fellow * Aubrey Quiñonez MD - Resident Preoperative diagnosis: Left hip osteoarthritis Postoperative diagnosis: * No post-op diagnosis entered * Procedure(s) (LRB): TOTAL HIP ARTHROPLASTY - POSTERIOR (WRVU 20.72) (Left) MODIFIER ACTIS HIP STEM DEPUY (Left) MODIFIER PINNACLE ACETABULUM DEPUY (N/A) Anesthesia: General Estimated Blood Loss: 300mL * No values recorded between 10/10/2020 5:49 PM and 10/10/2020 8:46 PM * Specimens removed during surgery: None Drains: * [...] and Specimen details pertinent to this patient.) COMPLICATIONS: No Immediate ANTIBIOTICS: Cefazolin in a weight based dose IV given within 1 hour prior to skin incision OTHER MEDICATIONS: Tranexemic acid 15mg/kg given at the beginning of the procedure FINDINGS: Severe degenerative disease of the hip involving the femoral head and acetabulum with areas of full thickness cartilage loss. IMPLANTS: System: Makoondi Femoral Stem: Actis high offset, Size 7; collared, SCOTT coated Acetabulum: Daykin size 60mm Liner: 36 x 60 neutral liner Femoral Head: 36mm +1.5mm ceramic head Implant Type Status Implanted on Explanted on Expires on Delete SHELL ACET HIP 60MM POR CTD MULTI HOLE TI PINNACLE GRIPTION ([id number]) (AUTOREQ) - [id number] IMPLANTS Implanted 10/10/2020 07/01/2030 LINER ACET HIP [id number] STND POLY PINNACLE ALTRX ([id number]) (AUTOREQ) - [id number] IMPLANTS Implanted10/10/2020 08/31/2025 HEAD FEMORAL HIP 36MM +1.5MM OFFSET 11/13 TAPER CERAMIC ([id number]) (AutoReq) - [id number] IMPLANTS Implanted 10/10/2020 07/01/2025 STEM FEMORAL HIP SZ 7 PROX 12/14 TAPER POR CLLR HIGH OFST TI ([id number]) (AutoReq) - [id number] IMPLANTS Implanted 10/10/2020 08/31/2030 PATIENT HISTORY: The patient is a 70 y.o. year-old male with a past medical history as noted below and with a long history of left hip pain and degenerative joint disease. After considering the patient's condition and the [...] loss of function and wishes to proceed. They understand they are at increased risk for infection and wound healing given their history of obesity. He also understood that he is at increased risk of medical complications such as acute myocardial infarction and cerebrovascular event/ stroke due to his history of coronary artery disease and stroke. A signed and witnessed consent was obtained and placed in the chart. Past Medical History: Diagnosis Date ??? Claudication ??? Coronary artery dissection ??? CPAP (continuous positive airway pressure) dependence CPAP ??? Diabetes treated with medication ??? Obstructive sleep apnea ??? Stroke 11-24-19 DESCRIPTION OF PROCEDURE: The patient was identified in the preoperative area. A signed and witness consent was confirmed in the chart. The surgery team confirmed with the patient the operative plan and surgical site. The surgical site was confirmed by the patient and marked by the surgical team. The patient was given the opportunity to ask any further questions and all questions were answered. The patient was brought to the operating room where anesthesia was induced by the anesthesia team without incident. PATIENT POSITIONING: The patient was placed in the lateral decubitus position on a standard table using hip positioners.An axillary roll was placed. All extremities were padded to ensure adequate protection including floating the peroneal nerve of the down leg. TIME OUT: A timeout was performed prior to the procedure which verified the correct patient, positioning, operation to be performed, operative site, antibiotics, allergies, imaging, and any other concerns. Allparties were in agreement. PROCEDURE IN DETAIL: The operative site was cleaned and draped in the usual sterile fashion. A final timeout was performed with all parties in agreement. A posterolateral approach to the hip was utilized. A 15cm skin incision was made centered over the greater trochanter in line with the femur. This was taken down through skin and subcutaneous tissue using a 10 blade. Bleeding was controlled using electrocautery. Thefascia was identified and split in line with the femur. The charnley retractor was then [...] greater trochanter. The femoral head was removed. The acetabulum was exposed. The remaining labrum [...] acetabulum staying away from the posterior nerve. A trial liner was placed. The femur was exposed. The lateral remnant [...] and found to be appropriate with good presybeterian of leg length and offset. A intraoperative x ray was taken and confirmed appropriate sizing and positioning of implants along with proper presybeterian of leg length and offset. The hip [...] soft tissue shuck tensioning and knee flexion. The hip was then copiously irrigated with dilute betadine followed by normal saline. The hip was then injected with the remainder of the periarticular cocktail. The hip was then closed in layers. Theposterior capsule was closed with #1 Ethibond. The fascia was closed with Strata Fix. The deep layer was closed with 0 Vicryl and the deep dermis by 2-0 Vicryl . Skin was closed using a running 3-0 Monocryl subcuticular. The skin was then cleaned and glued and steri-strips placed followed by a sterile dressing. The drapes were then taken down and the patient was placed supine. Leg lengths were confirmed to beappropriate and the patient's lower extremities were warm and well perfused with brisk capillary refill and palpable pulses. The patient was then awoken, transferred to the [facility] and taken to the PACU in stable condition. They tolerated the procedure well. The patient's family/caregivers were madeaware of their condition. Final sponge and needle counts were correct x2. POSTOPERATIVE PLAN: Activity: WBAT, posterior hip precautions. Abduction pillow until spinal has worn off DVT Prophylaxis: Risk stratified DVT prophylaxis with ASA , early ambulation and SCDs Antibiotics: Standard postoperative antibiotics x 24 hours Other: Total Joint Protocol If the bindery library technical assistant surgeon is other than a qualified resident, I certify that the services were medically necessary and there was no qualified resident available to perform the services. Infection Bundle used? N/A Attestation: Case Date: 10/10/2020 I was present and I participated during the entire procedure (does not need to include opening and closing). Ismael Wu MD 10/10/2020 documented in this encounter Plan of Treatment Upcoming Encounters Date Type Department Care Team (Late st Contact Info) Description 10/11/2023 10:00 AM EDT Tech [place] [phone] Giacomo Queen 10/11/2023 11:15 AM EDT Office Visit [place] [phone] Basim Barr MD [facility] [place] [address] 10/18/2023 9:00 AM EDT Office Visit Hematology/Oncology at [address] [phone] Cl Hess MD [facility] [place] [address] Yessi Renee APRN [address] [place] [address] DR HEMATOLOGY AND ONCOLOGY [facility], [place] [phone] 10/18/2023 9:30 AM EDT Infusion Hematology Oncology at [address] [phone] 10/24/2023 9:30 AM EDT Scheduled View Only Radiation Oncology at [address] [phone] [facility] Champagne 10/24/2023 10:00 AM EDT Office Visit Radiation Oncology at [address] [phone] Bigg Peters MD [address] [place] [address] DR RADIATION ONCOLOGY [facility], [place] [phone] 11/01/2023 9:00 AM EDT Office Visit Hematology/Oncology at [address] [phone] Cl Hess MD [facility] [place] [address] Yessi Renee APRN [address] [place] [address] DR HEMATOLOGY AND ONCOLOGY [facility], [place] [address] 11/01/2023 9:30 AM EDT Infusion Hematology Oncology at [address] [phone] 12/24/2023 1:00 PM EDT TH Visit (TeleHealth) Radiation Oncology at [address] [phone] Ping Moore PA [facility] DR [place] [address] documented as of this encounter Procedures Procedure Name Priority Date/Time Associated Diagnosis Comments POCT GLUCOSE Routine 10/12/2020 12:10 PM EDT POCT GLUCOSE Routine 10/12/2020 7:57 AM EDT POCT GLUCOSE Routine 10/12/2020 3:22 AM EDT POCT GLUCOSE Routine 10/11/2020 11:14 PM EDT POCT GLUCOSE Routine 10/11/2020 7:53 PM EDT POCT GLUCOSE Routine 10/11/2020 4:34 PM EDT POCT GLUCOSE Routine 10/11/2020 11:47 AM EDT HEMOGRAM Routine 10/11/2020 10:43 AM EDT DIFFERENTIAL, AUTOMATED Routine 10/11/2020 10:43 AM EDT HC CBC,PLT & AUTO DIFF Routine 10/11/2020 10:43 AM EDT HC VENIPUNCTURE Routine 10/11/2020 10:43 AM EDT POCT GLUCOSE Routine 10/11/2020 7:36 AM EDT POCT GLUCOSE Routine 10/11/2020 3:36 AM EDT POCT GLUCOSE Routine 10/11/2020 12:02 AM EDT XR PELVIS Routine 10/10/2020 9:46 PM EDT POCT GLUCOSE Routine 10/10/2020 9:19 PM EDT XR HIP 1 VIEW LEFT Routine 10/10/2020 7: 49 PM EDT XR PELVIS Routine 10/10/2020 7:49 PM EDT XR HIP 1 VIEW LEFT Routine 10/10/2020 7: 49 PM EDT MODIFIER PINNACLE GRIPTION ACETABULUM DEPUY 10/10/2020 4:43 PM EDT Primary osteoarthritis of left hip MODIFIER ACTIS HIP STEM DEPUY 10/10/2020 4:43 PM EDT Primary osteoarthritis of left hip Arthroplasty Acetabular/Prox Fem Prostc Agrft/Algrft (91724) 10/10/2020 4:43 PM EDT Primary osteoarthritis of left hip POCT GLUCOSE Routine 10/10/2020 3:20 PM EDT TOTAL HIP ARTHROPLASTY - POSTERIOR Routine 10/10/2020 2:13 PM EDT Primary osteoarthritis of left hip IMPLANTABLE DEVICES SCAN 10/10/2020 12:00 AM EDT documented in this encounter Results * POCT Glucose (10/12/2020 12:10 PM EDT) [facility] Signature Glucose, POC 129 65 - 199 mg/dL [facility] Comment: Supplemental ranges: <140 mg/dL before meals <180 mg/dL all other times of the day Blood 10/12/2020 12:1 0 PM EDT 10/12/2020 12:10 PM EDT Ismael Wu MD POINT OF CARE TEST ORDERABLES [facility] [place] [address] * POCT Glucose (10/12/2020 7:57 AM EDT) Glucose, POC 147 65 - 199 mg/dL [facility] Comment: Supplemental ranges: <140 mg/dL before meals <180 mg/dL all other times of the day Blood 10/12/2020 7:57 AM EDT 10/12/2020 7:57 AM EDT Ismael Wu MD POINT OF CARE TEST ORDERABLES Performing Organization Address City/[facility]/ZIP Co de Phone Number [facility] [place] [address] * POCT Glucose (10/12/2020 3:22 AM EDT) Glucose, POC 154 65 - 199 mg/dL [facility] Comment: Supplemental ranges: <140 mg/dL before meals <180 mg/dL all other times of the day Blood 10/12/2020 3:22 AM EDT 10/12/2020 3:22 AM EDT Ismael Wu MD POINT OF CARE TEST ORDERABLES [facility] [place] [address] * POCT Glucose (10/11/2020 11:14 PM EDT) Glucose, POC 180 65 - 199 mg/dL [facility] Comment: Supplemental ranges: <140 mg/dL before meals <180 mg/dL all other times of the day Blood 10/11/2020 11:1 4 PM EDT 10/11/2020 11:14 PM EDT Ismael Wu MD POINT OF CARE TEST ORDERABLES [facility] [place] [address] * (ABNORMAL) POCT Glucose (10/11/2020 7:53 PM EDT) Glucose, POC 208(H) 65 - 199 mg/dL [facility] Comment: Supplemental ranges: <140 mg/dL before meals <180 mg/dL all other times of the day Blood 10/11/2020 7:53 PM EDT 10/11/2020 7:53 PM EDT Ismael Wu MD POINT OF CARE TEST ORDERABLES Performing Organization Address City/[facility]/ZIP Co de Phone Number [facility] [place] [address] * POCT Glucose (10/11/2020 4:34 PM EDT) Glucose, POC 153 65 - 199 mg/dL [facility] Comment: Supplemental ranges: <140 mg/dL before meals <180 mg/dL all other times of the day Blood 10/11/2020 4:34 PM EDT 10/11/2020 4:34 PM EDT Ismael Wu MD POINT OF CARE TEST ORDERABLES [facility] [place] [address] * (ABNORMAL) POCT Glucose (10/11/2020 11:47 AM EDT) Glucose, POC 226(H) 65 - 199 mg/dL [facility] Comment: Supplemental ranges: <140 mg/dL before meals <180 mg/dL all other times of the day Blood 10/11/2020 11:4 7 AM EDT 10/11/2020 11:47 AM EDT Ismael Wu MD POINT OF CARE TEST ORDERABLES [facility] [place] [address] * (ABNORMAL) Differential, Automated (10/11/2020 10:43 AM EDT) Neutrophil % 84.5 % [facility] Neutrophil Absolute 11.42(H) 1.70 - 6.10 x10(3)/[facility] Lymph % 7.8 % [facility] Lymphocytes Abs 1.1 0.9 - 3.2 x10(3)/[facility] Monocyte % 7.2 % [facility] Monocyte Abs 1.0(H) 0.3 - 0.9 x10(3)/ L [facility] Eos % 0.0 % [facility] Eosinophils Abs 0.0 0.0 - 0.4 x10(3)/[facility] Basophil % 0.1 % [facility] Baso Absolute 0.0 0.0 - 0.1 x10(3)/[facility] Immature Gran % 0.40 % [facility] Comment: Immature granulocytes(IG's)percentage and absolute count will include metamyelocytes, myelocytes, and promyelocytes. Blood smears from CBCs yielding IG's will be scanned manually for concordance. If this scan disagrees with the automated IG or if promyelocytes are noted, a manual differential will be performed. Immature Gran Absolute 0.06(H) 0.00 - 0.04 x10(3)/ L [facility] Blood 10/11/2020 10:4 3 AM EDT 10/11/2020 11:09 AM EDT Narrative Resulting Agency Comment Spec In Lab Liz Tanner Sydney SIFUENTESN HEMATOLOGY ORDERABL ES [facility] [place] [address] * (ABNORMAL) Hemogram (10/11/2020 10:43 AM EDT) White Blood Cell 13.5(H) 4.0 - 9.5 x10(3)/mc L [facility] Red Blood Cell 3.87(L) 4.58 - 5.54 x10(6)/mc L [facility] Hemoglobin 12.4(L) 13.7 - 16.5 gm/dL [facility] Hematocrit 36.7(L) 40.5 - 48.5 % [facility] Mean Cell Volume 94.8(H) 82.9 - 93.1 fL [facility] Mean Cell Hemoglobin 32.0 27.5 - 32.1 pg [facility] Mean Cell Hemoglobin Concentration 33.8 32.0 - 35.7 gm/dL [facility] Platelet 187 145 - 357 x10(3)/mc L [facility] RDW Standard Deviation 44.4 36.0 - 45.0 [facility] RDW coefficient of variation 13.0 11.4 - 13.8 % [facility] Mean Platelet Volume 10.3 7.6 - 12.9 fL [facility] NRBC% auto 0.0 % [facility] NRBC Absolute 0.000 0.000 - 0.000 x10(3)/mc L [facility] Blood 10/11/2020 10:4 3 AM EDT 10/11/2020 11:09 AM EDT Narrative Resulting Agency Comment Spec In Lab Liz Flores Grimes APRN HEMATOLOGY ORDERABL ES [facility] [place] [address] * (ABNORMAL) Basic Metabolic Panel (non-fasting) (10/11/2020 10:43 AM EDT) Glucose 231(H) 65 - 199 mg/dL [facility] Comment:Diabetes: >=200 mg/d L plus symptoms Blood Urea Nitrogen 18 10 - 20 mg/dL [facility] Creatinine 1.10 0.80 - 1.50 mg/dL [facility] Sodium 135 135 - 145 mmol/L [facility] Potassium 4.4 3.5 - 5.0 mmol/L [facility] Comment: Please note: ??Patients with WBC >100,000 may have falsely elevated Potassium levels. ??For accurate Potassium quantification in these patients send serum separator tube (gold top) for subsequent determinations. ??Contact the Clinical Chemistry Laboratory if there are any questions. Chloride 100 98 - 107 mmol/L [facility] Carbon Dioxide 25 22 - 31 mmol/L [facility] Anion Gap 10 5 - 15 mmol/L [facility] Calcium 8.6 8.5 - 10.5 mg/dL [facility] Est Glomerular Filtration Rate 67 >=60 mL/min/1. 73 m?? [facility] Comment: This patient? s estimated glomerular filtration rate (eGFR) is between 67 mL/min/1.73 m2 (patients with less muscle mass per kg body weight) and 77 mL/min/1.73 m2 (patients with more muscle mass [...] and symptoms in addition to eGFR. Blood 10/11/2020 10:4 3 AM EDT 10/11/2020 11:09 AM EDT Narrative Resulting Agency Comment Spec In Lab Liz Grimes APRN CHEMISTRY ORDERABLE S Performing Organization Address [facility] Co de Phone Number [facility] [place] [address] * (ABNORMAL) POCT Glucose (10/11/2020 7:36 AM EDT) Glucose, POC 254(H) 65 - 199 mg/dL [facility] Comment: Supplemental ranges: <140 mg/dL before meals <180 mg/dL all other times of the day Blood 10/11/2020 7:36 AM EDT 10/11/2020 7:36 AM EDT Ismael uW MD POINT OF CARE TEST ORDERABLES Performing Organization Address [facility] Co de Phone Number [facility] [place] [address] * POCT Glucose (10/11/2020 3:36 AM EDT) Glucose, POC 199 65 - 199 mg/dL [facility] Comment: Supplemental ranges: <140 mg/dL before meals <180 mg/dL all other times of the day Blood 10/11/2020 3:36 AM EDT 10/11/2020 3:36 AM EDT Ismael Wu MD POINT OF CARE TEST ORDERABLES Performing Organization Address [facility] Co de Phone Number [facility] [place] [address] * POCT Glucose (10/11/2020 12:02 AM EDT) Glucose, POC 189 65 - 199 mg/dL [facility] Comment: Supplemental ranges: <140 mg/dL before meals <180 mg/dL all other times of the day Blood 10/11/2020 12:0 2 AM EDT 10/11/2020 12:02 AM EDT Ismael Wu MD POINT OF CARE TEST ORDERABLES [facility] [place] [address] * XR Pelvis (Generic) (10/10/2020 9:46 PM EDT) Anatomical Region Laterality Modality Pelvis N/A Digital Radiogra phy Impressions 10/11/2020 8:33 AM EDT No displaced pelvic fracture. There is a new left total hip arthroplasty with normal frontal alignment and no displaced fracture. Similar moderate osteoarthropathy of the right hip. Thank you for letting us participate in the care of this patient. ??If you are a health care provider and have any questions regarding this report, please contact the number below. ??For patients who have questions please contact the health care aid that requested your imaging first. ? Electronically signed by: Claudio Ward MD, [facility] ([phone]), at 10/11/2020 8:33 AM Narrative 10/11/2020 8:33 AM EDT EXAMINATION: XR PELVIS (GENERIC) CLINICAL HISTORY: s/p L JIMI TECHNIQUE: AP view of the pelvis. AP view of the left hip. COMPARISON: Same day radiographs Procedure Note Claudio Ward MD - 10/11/2020 EXAMINATION: XR PELVIS (GENERIC) CLINICAL HISTORY: s/p L JIMI TECHNIQUE: AP view of the pelvis. AP view of the left hip. COMPARISON: Same day radiographs IMPRESSION No displaced pelvic fracture. There is a new left total hip arthroplastywith normal frontal alignment and no displaced fracture. Similar moderate osteoarthropathy of the right hip. Thank you for letting us participate in the care of this patient. If youare a health care provider and have any questions regarding this report,please contact the number below. For patients who have questions please contactthe health care aid that requested your imaging first. Electronically signed by: Claudio Ward MD, [facility]([phone]), at 10/11/2020 8:33 AM Ismael Wu MD IMG DX ORDERABLES * POCT Glucose (10/10/2020 9:19 PM EDT) Glucose, POC 149 65 - 199 mg/dL [facility] Comment: Supplemental ranges: <140 mg/dL before meals <180 mg/dL all other times of the day Blood 10/10/2020 9:19 PM EDT 10/10/2020 9:19 PM EDT Ismael Wu MD POINT OF CARE TEST ORDERABLES Performing Organization Address City/State/[facility] Co de Phone Number [facility] [place] [address] * XR Hip 1 view Left (10/10/2020 7:49 PM EDT) Anatomical Region Laterality Modality Hip Left Digital Radiogra phy Impressions 10/11/2020 8:31 AM EDT Intraoperative AP view of the left hip demonstrates left total hip arthroplasty in progress with fitting of temporary acetabular cup and femoral stem component. No displaced fracture. Thank you for letting us participate in the care of this patient. ??If you are a health care provider and have any questions regarding this report, please contact the number below. ??For patients who have questions please contact the health care aid that requested your imaging first. ? Electronically signed by: Claudio Ward MD, [facility] ([phone]), at 10/11/2020 8:31 AM Narrative 10/11/2020 8:31 AM EDT EXAMINATION: XR HIP 1 VIEW LEFT CLINICAL HISTORY: hip arthroplasty TECHNIQUE: 1 views of the LEFT hip COMPARISON: Same day radiographs Procedure Note Claudio Ward MD - 10/11/2020 EXAMINATION: XR HIP 1 VIEW LEFT CLINICAL HISTORY: hip arthroplasty TECHNIQUE: 1 views of the LEFT hip COMPARISON: Same day radiographs IMPRESSION Intraoperative AP view of the left hip demonstrates left total hiparthroplasty in progress with fitting of temporary acetabular cup and femoral stemcomponent. No displaced fracture. Thank you for letting us participate in the care of this patient. If youare a health care provider and have any questions regarding this report,please contact the number below. For patients who have questions please contactthe health care aid that requested your imaging first. Electronically signed by: Claudio Ward MD, [facility]([phone]), at 10/11/2020 8:31 AM Ismael Wu MD IMG DX ORDERABLES * XR Pelvis (Generic) (10/10/2020 7:49 PM EDT) Anatomical Region Laterality Modality Pelvis N/A Digital Radiogra phy Impressions 10/11/2020 8:30 AM EDT Portable AP radiograph of the pelvis was performed. The upper pelvis is mostly obscured by overlying metallic fixation device. There is a left total hip arthroplasty in progress. Normal pubic symphysis. No displaced fracture of the pubic rami. Thank you for letting us participate in the care of this patient. ??If you are a health care provider and have any questions regarding this report, please contact the number below. ??For patients who have questions please contact the health care aid that requested your imaging first. ? Electronically signed by: Claudio Ward MD, [facility] ([phone]), at 10/11/2020 8:30 AM Narrative 10/11/2020 8:30 AM EDT EXAMINATION: XR PELVIS (GENERIC) CLINICAL HISTORY: total hip replacement TECHNIQUE: 1 views of the pelvis COMPARISON: Same day radiographs Procedure Note Claudio Ward MD - 10/11/2020 EXAMINATION: XR PELVIS (GENERIC) CLINICAL HISTORY: total hip replacement TECHNIQUE: 1 views of the pelvis COMPARISON: Same day radiographs IMPRESSION Portable AP radiograph of the pelvis was performed. The upper pelvis ismostly obscured by overlying metallic fixation device. There is a left totalhip arthroplasty in progress. Normal pubic symphysis. No displaced fracture ofthe pubic rami. Thank you for letting us participate in the care of this patient. If youare a health care provider and have any questions regarding this report,please contact the number below. For patients who have questions please contactthe health care aid that requested your imaging first. Electronically signed by: Claudio Ward MD, [facility]([phone]), at 10/11/2020 8:30 AM Ismael Wu MD IMG DX ORDERABLES * XR Hip 1 view Left (10/10/2020 7:49 PM EDT) Anatomical Region Laterality Modality Hip Left Digital Radiogra phy Impressions 10/11/2020 8:29 AM EDT Portable AP view demonstrates left total hip arthroplasty in progress with sitting of temporary acetabular cup and the temporary femoral stem. No displaced fracture. Thank you for letting us participate in the care of this patient. ??If you are a health care provider and have any questions regarding this report, please contact the number below. ??For patients who have questions please contact the health care aid that requested your imaging first. ? Electronically signed by: Claudio Ward MD, [facility] ([phone]), at 10/11/2020 8:29 AM Narrative 10/11/2020 8:29 AM EDT EXAMINATION: XR HIP 1 VIEW LEFT CLINICAL HISTORY: hip arthroplasty TECHNIQUE: 1 views of the LEFT hip COMPARISON: 09/15/2020 Procedure Note Claudio Ward MD - 10/11/2020 EXAMINATION: XR HIP 1 VIEW LEFT CLINICAL HISTORY: hip arthroplasty TECHNIQUE: 1 views of the LEFT hip COMPARISON: 09/15/2020 IMPRESSION Portable AP view demonstrates left total hip arthroplasty in progresswith sitting of temporary acetabular cup and the temporary femoral stem. Nodisplaced fracture. Thank you for letting us participate in the care of this patient. If youare a health care provider and have any questions regarding this report,please contact the number below. For patients who have questions please contactthe health care aid that requested your imaging first. Electronically signed by: Claudio Ward MD, [facility]([phone]), at 10/11/2020 8:29 AM Ismael Wu MD IMG DX ORDERABLES * POCT Glucose (10/10/2020 3:20 PM EDT) Glucose, POC 119 65 - 199 mg/dL [facility] Comment: Supplemental ranges: <140 mg/dL before meals <180 mg/dL all other times of the day Blood 10/10/2020 3:20 PM EDT 10/10/2020 3:20 PM EDT Ismael Wu MD POINT OF CARE TEST ORDERABLES [facility] [place] [address] * SCAN DOC: IMPLANTABLE DEVICES (10/10/2020 12:00 AM EDT) Unknown MEDIA MGR SCAN EXT O RDR/RSLT documented in this encounter Visit Diagnoses Diagnosis Primary osteoarthritis of left hip- Primary Primary localized osteoarthrosis, pelvic region and thigh Primary osteoarthritis of left hip Primary localized osteoarthrosis, pelvic region and thigh s/p L JIMI, posterior, Dr. Wu, 10/10/20 Hip joint replacement by other means Diabetes mellitus Type II or unspecified type diabetes mellitus without mention of complication, not stated as uncontrolled Primary osteoarthritis of left hip Primary localized osteoarthrosis, pelvic region and thigh documented in this encounter Administered Medications Inactive Administered Medications - up to 3 most recent administrations Medication Order MAR Action Action Date Dose Rate Site acetaminophen (Tylenol) tablet 1,000 mg 1,000 mg, Oral, ONCE, 1 dose, On Sat10/10/20 at 1500, Administer on arrival in Same Day Program, Day of Surgery (Day of Procedure), Routine Given 10/10/2020 2:54 PM EDT 1,000 mg acetaminophen (Tylenol) tablet 1,000 mg 1,000 mg, Oral, EVERY 8 HOURS SCHEDULED, First dose on Sat10/10/20 at 2215, Until Discontinued, Maximum dose of acetaminophen is 4000 mg from all sources in 24 hours. When ordered for pain, acetaminophen should be given even when other ordered pain medications are indicated. , Routine Given 10/12/2020 6:33 AM EDT 1,000 mg Given 10/11/2020 9:40 PM EDT 1,000 mg Given 10/11/2020 1:13 PM EDT 1,000 mg amLODIPine (Norvasc) tablet 10 mg 10 mg, Oral, DAILY, First dose on Sat10/11/20 at 0900, Until Discontinued, Hold for systolic blood pressure less than 120, Routine Given 10/12/2020 8:29 AM EDT 10 mg aspirin EC tablet 81 mg 81 mg, Oral, DAILY, First dose on Sat10/11/20 at 0900, Until Discontinued, Routine Given 10/12/2020 8:30 AM EDT 81 mg Given 10/11/2020 8:51 AM EDT 81 mg atorvastatin (Lipitor) tablet 40 mg 40 mg, Oral, EVERY EVENING, First dose on Sat10/11/20 at 1700, Until Discontinued, Routine Given 10/11/2020 5:53 PM EDT 40 mg BUpivacaine (pf) (Marcaine) (2.5 mg/mL) 0.25% injection ONCE PRN, Starting on Sat10/10/20 at 2049, Until Sat10/12/20 at 1518, Intra-Operative (Intra-Procedure), Routine Given 10/10/2020 8:49 PM EDT 30 mLs carvediloL (Coreg) tablet 12.5 mg 12.5 mg, Oral, 2 TIMES DAILY WITH MEALS, First dose on Sat10/11/20 at 0800, Until Discontinued, Hold for systolic blood pressure less than 105 or heart rate less than 55, Routine Given 10/12/2020 8:28 AM EDT 12.5 mg Given 10/11/2020 5:52 PM EDT 12.5 mg Given 10/11/2020 8:54 AM EDT 12.5 mg ceFAZolin (Ancef) 2 g in dextrose 5% 100 mL infusion 2 g, Intravenous, EVERY 8 HOURS, 3 doses, First dose on Sat10/10/20 at 2200, Last dose on Sat10/11/20 at 1400, Administer over 30 Minutes, Adjust to 4 hours from intraoperative dose. * Beta-lactam based antibiotics (eg. Ampicillin, Cefazolin, Aztreonam) should be administered within 4 hours of the preceding intraoperative dose. * Vancomycin, Fluoroquinolones, Clindamycin, Gentamicin, and Metronidazole should be administered within 8 hours of the preceding intraoperative dose., Recovery (Recovery-Hospital Unit), Indication for (Active or Suspected): Prophylaxis New Bag 10/11/2020 1:12 PM EDT 2 g 200 mL/hr New Bag 10/11/2020 6:08 AM EDT 2 g 200 mL/hr New Bag 10/10/2020 10:09 PM EDT 2 g 200 mL/hr celecoxib (CeleBREX) capsule 200 mg 200 mg, Oral, 2 TIMES DAILY, First dose on Sat10/11/20 at 0900, Until Discontinued, Routine Given 10/12/2020 8:28 AM EDT 200 mg Given 10/11/2020 8:06 PM EDT 200 mg Given 10/11/2020 8:54 AM EDT 200 mg celecoxib (CeleBREX) capsule 400 mg 400 mg, Oral, ONCE, 1 dose, On Sat10/10/20 at 1500, Administer on arrival to Same Day Program, Day of Surgery (Day of Procedure), Routine Given 10/10/2020 2:53 PM EDT 400 mg cloNIDine (pf) (Duraclon) (100 mcg/mL) Epidural injection ONCE PRN, Starting on Sat10/10/20 at 2049, Until Sat10/12/20 at 1518, Intra-Operative (Intra-Procedure), Routine Given 10/10/2020 8:49 PM EDT 50 mcg clopidogreL (Plavix) tablet 75 mg 75 mg, Oral, ONCE, 1 dose, On Sat10/11/20 at 0700, Routine Given 10/11/2020 6:08 AM EDT 75 mg clopidogreL (Plavix) tablet 75 mg 75 mg, Oral, DAILY, First dose on Sat10/12/20 at 0900, Until Discontinued, Routine Given 10/12/2020 8:28 AM EDT 75 mg dextrose 10% infusion 250 mL, at 1,000 mL/hr, Intravenous, EVERY 30 MIN PRN, Starting on Sat10/10/20 at 2153, Until Sat10/12/20 at 1518, For BG 50-70 mg/dL: Oral treatment preferred:?? If able to drink, give 120 mL Juice or Regular (not diet) soda OR If NPO, give 15 gram glucose 40% oral gel massaged into buccal mucosa OR if unconscious or uncooperative, give 25 gram (250 mL) Dextrose 10% IV over 15 minutes per protocol OR, if no IV access, 1 mg Glucagon IM. For BG less than 50 mg/dL: Oral treatment preferred:?? If able to drink, give 240 mL [...] for the duration of the active insulin. glimepiride (Amaryl) tablet 1 mg 1 mg, Oral, EVERY MORNING BEFORE BREAKFAST, First dose on Sat10/11/20 at 0730, Until Discontinued, Consider holding dose if patient is not eating., Routine Given 10/12/2020 6:33 AM EDT 1 mg Given 10/11/2020 7:43 AM EDT 1 mg glucagon (Glucagen) (1 mg/mL) injection solution 1 mg 1 mg, Intramuscular, EVERY 30 MIN PRN, Starting on Sat10/10/20 at 2153, Until Sat10/12/20 at 1518, Low blood sugar, For BG 50-70 mg/dL: Oral treatment preferred:?? If able to drink, give 120 mL Juice or Regular (not diet) soda OR If NPO, give 15 gram glucose 40% oral gel massaged into buccal mucosa OR if unconscious or uncooperative, give 25 gram (250 mL) Dextrose 10% IV over 15 minutes per protocol OR, if no IV access, 1 mg Glucagon IM. For BG less than 50 mg/dL: Oral treatment preferred:?? If able to drink, give 240 mL [...] duration of the active insulin., Routine glucose (GLUTOSE) 40% oral geL 15-30 g, Buccal, EVERY 30 MIN PRN, Starting on Sat10/10/20 at 2153, Until Sat10/12/20 at 1518, Low blood sugar, For BG 50-70 mg/dL: Oral treatment preferred:?? If able to drink, give 120 mL Juice or Regular (not diet) soda OR If NPO, give 15 gram glucose 40% oral gel massaged into buccal mucosa OR if unconscious or uncooperative, give 25 gram (250 mL) Dextrose 10% IV over 15 minutes per protocol OR, if no IV access, 1 mg Glucagon IM. For BG less than 50 mg/dL: Oral treatment preferred:?? If able to drink, give 240 mL [...] duration of the active insulin. 1 tube contains 15 grams of glucose (net weight of tube = 37.5 grams., Routine insulin lispro (HumaLOG;Admelog) (100 unit/mL) subcutaneous injection vial 1-4 Units 1-4 Units, Subcutaneous, EVERY 4 HOURS SCHEDULED, First dose on Sat10/11/20 at 0000, Until Discontinued, CORRECTION BOLUS [1-4 Units] Sensitive [...] 240 mg/dL in 2 hours., Routine Given 10/11/2020 11:54 AM EDT 2 Units Given 10/11/2020 8:58 AM EDT 3 Units Given 10/11/2020 3:48 AM EDT 1 Units insulin lispro (HumaLOG;Admelog) (100 unit/mL) subcutaneous injection vial 1-6 Units 1-6 Units, Subcutaneous, EVERY 4 HOURS SCHEDULED, First dose on Sat10/11/20 at 1245, Until Discontinued, CORRECTION BOLUS [1-6 Units] Moderate Sliding Scale (BG in mg/dL): Correction factor 20 (1 unit of insulin is expected to drop the glucose 20 mg/dL) BG 140 - 160 Give 1 unit BG 161 - 180 Give 2 units BG 181 - 200 Give 3 units BG 201 - 220 Give 4 units BG 221 - 240 Give 5 units BG greater than 240, give 6 units and recheck BG in 2 hours. - If recheck BG is LESS than 240, give no insulin and resume schedule. - If recheck BG is GREATER than 240, give 6 units and repeat BG in 2 hours (no more than 3 times) & call for new insulin orders. DO NOT hold if NPO, unless specifically directed to do so by written order. Per Blood Glucose Monitoring Policy, re-check a BG of > 240 mg/dL in 2 hours., Routine Given 10/12/2020 8:27 AM EDT 1 Units Given 10/12/2020 4:18 AM EDT 1 Units Ri ght Arm Given 10/11/2020 11:19 PM EDT 2 Units ketorolac (Toradol) (30 mg/mL) injection ONCE PRN, Starting on Sat10/10/20 at 2049, Until Sat10/12/20 at 1518, Intra-Operative (Intra-Procedure), Routine Given 10/10/2020 8:49 PM EDT 30 mg metFORMIN (Glucophage) tablet 1,000 mg 1,000 mg, Oral, 2 TIMES DAILY WITH MEALS, First dose on Sat10/11/20 at 0800, Until Discontinued, Routine Given 10/12/2020 8:28 AM EDT 1,000 mg Given 10/11/2020 5:52 PM EDT 1,000 mg Given 10/11/2020 8:55 AM EDT 1,000 mg ondansetron (pf) (Zofran) (2 mg/mL) injection 4 mg 4 mg, Intravenous, EVERY 8 HOURS PRN, Starting on Sat10/11/20 at 0336, Until Sat10/12/20 at 1518, Nausea, May repeat times one in 30 minutes if ineffective. If multiple antiemetics are ordered, use ondansetron first, Recovery (Recovery-Hospital Unit) ondansetron (Zofran) tablet 4 mg 4 mg, Oral, EVERY 8 HOURS PRN, Starting on Sat10/11/20 at 0336, Until Sat10/12/20 at 1518, Nausea, Vomiting, If multiple antiemetics are ordered, use ondansetron first. PO Preferred. If patient unable to take PO, may give IV if ordered. May repeat times one in 45 minutes if ineffective., Recovery (Recovery-Hospital Unit), Routine oxyCODONE (Roxicodone) tablet 5-15 mg 5-15 mg, Oral, EVERY 4 HOURS PRN, Starting on Sat10/10/20 at 2153, Until Sat10/12/20 at 1518, Pain, Give 5 mg for mild pain (1-3), 10 mg for moderate pain (4-6) or 15 mg for severe pain (7-10) May give an additional 5 mg in 30 minutes ONCE if pain not relieved., Routine Given 10/12/2020 8:28 AM EDT 10 mg pantoprazole EC (Protonix) tablet 20 mg 20 mg, Oral, DAILY, First dose on Sat10/11/20 at 0900, Until Discontinued, DO NOT CRUSH OR OPEN Given 10/12/2020 8:30 AM EDT 20 mg Given 10/11/2020 8:53 AM EDT 20 mg polyethylene glycoL (Miralax) packet 17 g 17 g, Oral, 2 TIMES DAILY, First dose on Sat10/11/20 at 0900, Until Discontinued, Routine Given 10/12/2020 8:27 AM EDT 17 g Given 10/11/2020 8:08 PM EDT 17 g senna-docusate (Pericolace) 8.6-50 mg per tablet 2 tablet 2 tablet, Oral, 2 TIMES DAILY, First dose on Sat10/11/20 at 0900, Until Discontinued, Routine Given 10/12/2020 8:29 AM EDT 2 tablets Given 10/11/2020 8:07 PM EDT 2 tablets sodium chloride 0.9 % (flush) (BD PosiFlush Normal Saline 0.9) flush 5 mL 5 mL, Intravenous, 2 TIMES DAILY, First dose on Sat10/11/20 at 0900, Until Discontinued, Recovery (Recovery-Hospital Unit), Routine Given 10/12/2020 8:30 AM EDT 5 mLs Given 10/11/2020 8:09 PM EDT 10 mLs Given 10/11/2020 9:37 AM EDT 5 mLs sodium chloride 0.9% 500 mL IV bolus at 500 mL/hr, Intravenous, ONCE, 1 dose, On Sat10/11/20 at 1245 New Bag 10/11/2020 12:03 PM EDT 500 mL/hr sodium chloride 0.9% infusion 1,000 mL, at 100 mL/hr, Intravenous, CONTINUOUS, Starting on Sat10/10/20 at 2200, Until Sat10/12/20 at 1518, Recovery (Recovery-Hospital Unit) New Bag 10/12/2020 4:28 AM EDT 1,000 mLs 100 mL/hr New Bag 10/11/2020 6:13 PM EDT 1,000 mLs 100 mL/hr New Bag 10/10/2020 9:33 PM EDT 1,000 mLs 100 mL/hr tamsulosin (Flomax) capsule 0.4 mg 0.4 mg, Oral, DAILY, First dose on Sat10/11/20 at 1200, Until Discontinued, DO NOT CRUSH OR OPEN, Routine Given 10/12/2020 8:29 AM EDT 0.4 mg Given 10/11/2020 11:54 AM EDT 0.4 mg documented in this encounter Active and Recently Administered Medications Times are shown in EDT. Scheduled Medication Order 10/10/2020 10/11/2020 10/12/2020 acetaminophen (Tylenol) tablet 1,000 mg (COMPLETED) 1,000 mg, Oral, ONCE, 1 dose, On Sat10/10/20 at 1500, Administer on arrival in Same Day Program, Day of Surgery (Day of Procedure), Routine 1454 (Given - Provider: Therese Thomas RN) acetaminophen (Tylenol) tablet 1,000 mg 1,000 mg, Oral, EVERY 8 HOURS SCHEDULED, First dose on Sat10/10/20 at 2215, Until Discontinued, Maximum dose of acetaminophen is 4000 mg from all sources in 24 hours. When ordered for pain, acetaminophen should be given even when other ordered pain medications are indicated. , Routine 2219 (Given - Provider: Judith Huerta RN) 0608 (Given - Provider: Qian Santiago RN)1313 (Given - Provider: Savanah Guadalupe, AYE)2140 (Given - Provider: Boone Gonzalez, AYE) 0633 (Given - Provider: Boone Gonzalez, AYE) amLODIPine (Norvasc) tablet 10 mg 10 mg, Oral, DAILY, First dose on Sat10/11/20 at 0900, Until Discontinued, Hold for systolic blood pressure less than 120, Routine 0900 (Not Given - Provider: Linsey Zavala LPN - Reason: Order parameters not met) 0829 (Given - Provider: Savanah Guadalupe RN) aspirin EC tablet 81 mg 81 mg, Oral, DAILY, First dose on Sat10/11/20 at 0900, Until Discontinued, Routine 0851 (Given - Provider: Linsey Zavala LPN) 0830 (Given - Provider: Savanah Guadalupe, AYE) atorvastatin (Lipitor) tablet 40 mg 40 mg, Oral, EVERY EVENING, First dose on Sat10/11/20 at 1700, Until Discontinued, Routine 1753 (Given - Provider: Linsey Zavala LPN) carvediloL (Coreg) tablet 12.5 mg 12.5 mg, Oral, 2 TIMES DAILY WITH MEALS, First dose on Sat10/11/20 at 0800, Until Discontinued, Hold for systolic blood pressure less than 105 or heart rate less than 55, Routine 0854 (Given - Provider: Linsey Zavala LPN)1752 (Given - Provider: Linsey Zavala LPN) 0828 (Given - Provider: Savanah Guadalupe RN) ceFAZolin (Ancef) 2 g in dextrose 5% 100 mL infusion (COMPLETED) 2 g, Intravenous, EVERY 3 HOURS, 1 dose, First dose on Sat10/10/20 at 1500, Administer over 30 Minutes, Redose after 3 hours., Intra-Operative (Intra-Procedure), Indication for (Active or Suspected): Prophylaxis 1736 (Given - Provider: Vidal Watson MD) ceFAZolin (Ancef) 2 g in dextrose 5% 100 mL infusion (COMPLETED) 2 g, Intravenous, EVERY 8 HOURS, 3 doses, First dose on Sat10/10/20 at 2200, Last dose on Sat10/11/20 at 1400, Administer over 30 Minutes, Adjust to 4 hours from intraoperative dose. * Beta-lactam based antibiotics (eg. Ampicillin, Cefazolin, Aztreonam) should be administered within 4 hours of the preceding intraoperative dose. * Vancomycin, Fluoroquinolones, Clindamycin, Gentamicin, and Metronidazole should be administered within 8 hours of the preceding intraoperative dose., Recovery (Recovery-Hospital Unit), Indication for (Active or Suspected): Prophylaxis 2208 (New Bag - Provider: Judith Huerta RN)2239 (Stopped - Provider: Junaid Diallo, AYE) 0608 (New Bag - Provider: Qian Santiago, AYE)0638 (Stopped - Provider: Savanah Guadalupe RN)1312 (New Bag - Provider: Savanah Guadalupe, AYE)1342 (Stopped - Provider: Savanah Guadalupe, AYE) celecoxib (CeleBREX) capsule 200 mg 200 mg, Oral, 2 TIMES DAILY, First dose on Sat10/11/20 at 0900, Until Discontinued, Routine 0854 (Given - Provider: Linsey Zavala LPN)2005 (Given - Provider: Boone Gonzalez, AYE) 0828 (Given - Provider: Savanah Guadalupe RN) celecoxib (CeleBREX) capsule 400 mg (COMPLETED) 400 mg, Oral, ONCE, 1 dose, On Sat10/10/20 at 1500, Administer on arrival to Same Day Program, Day of Surgery (Day of Procedure), Routine 1453 (Given - Provider: Therese Thomas RN) clopidogreL (Plavix) tablet 75 mg (COMPLETED) 75 mg, Oral, ONCE, 1 dose, On Sat10/11/20 at 0700, Routine 0608 (Given - Provider: Qian Santiago RN) clopidogreL (Plavix) tablet 75 mg 75 mg, Oral, DAILY, First dose on Sat10/12/20 at 0900, Until Discontinued, Routine 0828 (Given - Provider: Savanah Guadalupe RN) [id number] ketamine 10 mg/mL or placebo injection 57 mg (COMPLETED)(Linked Group 1) 57 mg (rounded from 57.4 mg = [...] be ordered by Dr. Rodrick Chisholm. Acknowledged 0613 (Given - Provider: Milton Smalls MD) glimepiride (Amaryl) tablet 1 mg 1 mg, Oral, EVERY MORNING BEFORE BREAKFAST, First dose on Sat10/11/20 at 0730, Until Discontinued, Consider holding dose if patient is not eating., Routine 0743 (Given - Provider: Savanah Guadalupe, AYE) 0633 (Given - Provider: Boone Gonzalez RN) insulin lispro (HumaLOG;Admelog) (100 unit/mL) subcutaneous injection vial 1-4 Units (CANCELED)(Linked Group 2) 1-4 Units, Subcutaneous, EVERY 4 HOURS SCHEDULED, First dose on Sat10/11/20 at 0000, Until Discontinued, CORRECTION BOLUS [1-4 Units] Sensitive [...] > 240 mg/dL in 2 hours., Routine 0026 (Given - Provider: Junaid Diallo RN - Comment: [phone] (Given - Provider: Qian Santiago RN)0858 (Given - Provider: Linsey Zavala LPN)1154 (Given - Provider: Savanah Guadalupe, AYE) insulin lispro (HumaLOG;Admelog) (100 unit/mL) subcutaneous injection vial 1-6 Units(Linked Group 3) 1-6 Units, Subcutaneous, EVERY 4 HOURS SCHEDULED, First dose on Sat10/11/20 at 1245, Until Discontinued, CORRECTION BOLUS [1-6 Units] Moderate Sliding Scale (BG in mg/dL): Correction factor 20 (1 unit of insulin is expected to drop the glucose 20 mg/dL) BG 140 - 160 Give 1 unit BG 161 - 180 Give 2 units BG 181 - 200 Give 3 units BG 201 - 220 Give 4 units BG 221 - 240 Give 5 units BG greater than 240, give 6 units and recheck BG in 2 hours. - If recheck BG is LESS than 240, give no insulin and resume schedule. - If recheck BG is GREATER than 240, give 6 units and repeat BG in 2 hours (no more than 3 times) & call for new insulin orders. DO NOT hold if NPO, unless specifically directed to do so by written order. Per Blood Glucose Monitoring Policy, re-check a BG of > 240 mg/dL in 2 hours., Routine 1202 (Given - Provider: Savanah Guadalupe RN - Comment: 2 units already given before order sliding scale changed, additional 3 units given)1636 (Given - Provider: Linsey Zavala LPN)2007 (Given - Provider: Boone Gonzalez, AYE)2319 (Given - Provider: Boone Gonzalez, AYE) 0418 (Given - Provider: Boone Gonzalez RN)0827 (Given - Provider: Savanah Guadalupe RN)1200 (Not Given - Provider: Savanah Guadalupe RN - Reason: Order parameters not met) metFORMIN (Glucophage) tablet 1,000 mg 1,000 mg, Oral, 2 TIMES DAILY WITH MEALS, First dose on Sat10/11/20 at 0800, Until Discontinued, Routine 0855 (Given - Provider: Linsey Zavala LPN)1752 (Given - Provider: Linsey Zavala LPN) 0828 (Given - Provider: Savanah Guadalupe, AYE) pantoprazole EC (Protonix) tablet 20 mg 20 mg, Oral, DAILY, First dose on Sat10/11/20 at 0900, Until Discontinued, DO NOT CRUSH OR OPEN 0853 (Given - Provider: Linsey Zavala LPN) 0830 (Given - Provider: Savanah Guadalupe RN) polyethylene glycoL (Miralax) packet 17 g 17 g, Oral, 2 TIMES DAILY, First dose on Sat10/11/20 at 0900, Until Discontinued, Routine 0900 (Not Given - Provider: Linsey Zavala LPN - Reason: Patient/family refused)2007 (Given - Provider: Boone Gonzalez RN) 08 (Given - Provider: Savanah Guadalupe, AYE) senna-docusate (Pericolace) 8.6-50 mg per tablet 2 tablet 2 tablet, Oral, 2 TIMES DAILY, First dose on Sat10/11/20 at 0900, Until Discontinued, Routine 0900 (Not Given - Provider: Linsey Zavala LPN - Reason: Patient/family refused)2006 (Given - Provider: Boone Gonzalez RN) 828 (Given - Provider: Savanah Guadalupe, AYE) sodium chloride 0.9 % (flush) (BD PosiFlush Normal Saline 0.9) flush 5 mL 5 mL, Intravenous, 2 TIMES DAILY, First dose on Sat10/11/20 at 0900, Until Discontinued, Recovery (Recovery-Hospital Unit), Routine 0937 (Given - Provider: Savanah Guadalupe, AYE)2008 (Given - Provider: Boone Gonzalez RN) 08 (Given - Provider: Savanah Guadalupe RN) sodium chloride 0.9% 500 mL IV bolus (COMPLETED) at 500 mL/hr, Intravenous, ONCE, 1 dose, On Sat10/11/20 at 1245 1203 (New Bag - Provider: Savanah Guadalupe RN)1303 (Stopped - Provider: Savanah Guadalupe, AYE) tamsulosin (Flomax) capsule 0.4 mg 0.4 mg, Oral, DAILY, First dose on Sat10/11/20 at 1200, Until Discontinued, DO NOT CRUSH OR OPEN, Routine 1154 (Given - Provider: Savanah Guadalupe RN) 0829 (Given - Provider: Savanah Guadalupe, AYE) Continuous Medication Order 10/10/2020 10/11/2020 10/12/2020 [id number] ketamine or placebo 250 mg in sodium chloride 0.9% 250 mL infusion (CANCELED)(Linked Group 4) 5 mcg/kg/min ? 114.8 kg (34.44 mL/hr, rounded to 34.4 mL/hr), Intravenous, CONTINUOUS, Starting on Sat10/10/20 at 0700, Until Sat10/12/20 at 0611, 0.5 mg/kg bolus followed by a 5 mcg/kg/min continuous infusion. total dose (bolus plus continuous infusion) should not exceed 500 mg 1740 (New Bag - Provider: Vidal Watson MD)2024 (Stopped - Provider: Delmi Garcia CRNA) sodium chloride 0.9% infusion 1,000 mL, at 100 mL/hr, Intravenous, CONTINUOUS, Starting on Sat10/10/20 at 2200, Until Sat10/12/20 at 1518, Recovery (Recovery-Hospital Unit) 2133 (New Bag - Provider: Chen Arrieta, AYE) 1002 (Stopped - Provider: Savanah Guadalupe, AYE - Comment: Pt IV symptomatic)181 (New Bag - Provider: Savanah Guadalupe, AYE) 0428 (New Bag - Provider: Boone Gonzalez, AYE)0835 (Stopped - Provider: Savanah Guadalupe, AYE) PRN Medication Order 10/10/2020 10/11/2020 10/12/2020 bisacodyL (Dulcolax) suppository 10 mg 10 mg, Rectal, DAILY PRN, Starting on Sat10/11/20 at 0336, Until Sat10/12/20 at 1518, Constipation, Administer if needed per patient's routine [...] Oral, 2 TIMES DAILY PRN, Starting on Sat10/11/20 at 0336, Until Sat10/12/20 at 1518, Constipation, DO NOT CRUSH OR OPEN Administer if needed per patient's routine or if no bowel movement within 48 hours to achieve: (1) One bowel movement every 48 hours, AND (2) without straining. If multiple PRN bowel medications ordered, start with lactulose, then oral bisacodyl, then bisacodyl suppository. Multiple medications may be given concomitantly for constipation., Routine BUpivacaine (pf) (Marcaine) (2.5 mg/mL) 0.25% injection (CANCELED) ONCE PRN, Starting on Sat10/10/20 at 2049, Until Sat10/12/20 at 1518, Intra-Operative (Intra-Procedure), Routine 2048 (Given - Provider: Ismael Wu MD) cloNIDine (pf) (Duraclon) (100 mcg/mL) Epidural injection (CANCELED) ONCE PRN, Starting on Sat10/10/20 at 2049, Until Sat10/12/20 at 1518, Intra-Operative (Intra-Procedure), Routine 2048 (Given - Provider: Ismael Wu MD) dextrose 10% infusion(Linked Group 5) 250 mL, at 1,000 mL/hr, Intravenous, EVERY 30 MIN PRN, Starting on Sat10/10/20 at 2153, Until Sat10/12/20 at 1518, For BG 50-70 mg/dL: Oral treatment preferred:?? If able to drink, give 120 mL Juice or Regular (not diet) soda OR If NPO, give 15 gram glucose 40% oral gel massaged into buccal mucosa OR if unconscious or uncooperative, give 25 gram (250 mL) Dextrose 10% IV over 15 minutes per protocol OR, if no IV access, 1 mg Glucagon IM. For BG less than 50 mg/dL: Oral treatment preferred:?? If able to drink, give 240 mL [...] (1 mg/mL) injection solution 1 mg(Linked Group 5) 1 mg, Intramuscular, EVERY 30 MIN PRN, Starting on Sat10/10/20 at 2153, Until Sat10/12/20 at 1518, Low blood sugar, For BG 50-70 mg/dL: Oral treatment preferred:?? If able to drink, give 120 mL Juice or Regular (not diet) soda OR If NPO, give 15 gram glucose 40% oral gel massaged into buccal mucosa OR if unconscious or uncooperative, give 25 gram (250 mL) Dextrose 10% IV over 15 minutes per protocol OR, if no IV access, 1 mg Glucagon IM. For BG less than 50 mg/dL: Oral treatment preferred:?? If able to drink, give 240 mL [...] duration of the active insulin., Routine glucose (GLUTOSE) 40% oral geL(Linked Group 5) 15-30 g, Buccal, EVERY 30 MIN PRN, Starting on Sat10/10/20 at 2153, Until Sat10/12/20 at 1518, Low blood sugar, For BG 50-70 mg/dL: Oral treatment preferred:?? If able to drink, give 120 mL Juice or Regular (not diet) soda OR If NPO, give 15 gram glucose 40% oral gel massaged into buccal mucosa OR if unconscious or uncooperative, give 25 gram (250 mL) Dextrose 10% IV over 15 minutes per protocol OR, if no IV access, 1 mg Glucagon IM. For BG less than 50 mg/dL: Oral treatment preferred:?? If able to drink, give 240 mL [...] duration of the active insulin. 1 tube contains 15 grams of glucose (net weight of tube = 37.5 grams., Routine ketorolac (Toradol) (15 mg/mL) injection 15 mg 15 mg, Intravenous, EVERY 6 HOURS PRN, Starting on Sat10/10/20 at 2153, Until Sat10/12/20 at 1518, Pain, Routine ketorolac (Toradol) (30 mg/mL) injection (CANCELED) ONCE PRN, Starting on Sat10/10/20 at 2049, Until Sat10/12/20 at 1518, Intra-Operative (Intra-Procedure), Routine 2048 (Given - Provider: Ismael Wu MD) lidocaine (Xylocaine) 1% (10 mg/mL) injection 3 mg 3 mg (0.3 mL), Subcutaneous, ONCE PRN, 1 dose, Starting on Sat10/11/20 at 0336, Until Sat10/12/20 at 1518, for discomfort with PIV insertion, Recovery (Recovery-Hospital Unit), Routine ondansetron (pf) (Zofran) (2 mg/mL) injection 4 mg(Linked Group 6) 4 mg, Intravenous, EVERY 8 HOURS PRN, Starting on Sat10/11/20 at 0336, Until Sat10/12/20 at 1518, Nausea, May repeat times one in 30 minutes if ineffective. If multiple antiemetics are ordered, use ondansetron first, Recovery (Recovery-Hospital Unit) ondansetron (Zofran) tablet 4 mg(Linked Group 6) 4 mg, Oral, EVERY 8 HOURS PRN, Starting on Sat10/11/20 at 0336, Until Sat10/12/20 at 1518, Nausea, Vomiting, If multiple antiemetics are ordered, use ondansetron first. PO Preferred. If patient unable to take PO, may give IV if ordered. May repeat times one in 45 minutes if ineffective., Recovery (Recovery-Hospital Unit), Routine oxyCODONE (Roxicodone) tablet 5-15 mg 5-15 mg, Oral, EVERY 4 HOURS PRN, Starting on Sat10/10/20 at 2153, Until Sat10/12/20 at 1518, Pain, Give 5 mg for mild pain (1-3), 10 mg for moderate pain (4-6) or 15 mg for severe pain (7-10) May give an additional 5 mg in 30 minutes ONCE if pain not relieved., Routine 827 (Given - Provid er: Savanah Guadalupe RN) sodium chloride 0.9 % (flush) (BD PosiFlush Normal Saline 0.9) flush 5-20 mL 5-20 mL, Intravenous, EVERY 1 MIN PRN, Starting on Sat10/11/20 at 0336, Until Sat10/12/20 at 1518, flush, Flush pertains to all indwelling lines. Flush per protocol found in the job aid using the link provided on this medication record., Recovery (Recovery-Hospital Unit), Routine Linked Groups Order Group 1: [id number] ketamine 10 mg/mL or placebo injection 57 mg (COMPLETED)Jump to med 57 mg (rounded from 57.4 mg = [...] be ordered by Dr. Rodrick Chisholm. Acknowledged And INV [id number] patient's specific med #2 1 each () 1 each (1 Syringe), Intravenous, ONCE, 1 dose, On Sat10/10/20 at 0700, Routine Group 2: POCT Fingerstick Glucose (CANCELED) Routine, EVERY 4 HOURS, First occurrence on Sat10/10/20 at 2155, Until Specified, Consider choosing EVERY 4 HOURS [...] (100 unit/mL) subcutaneous injection vial 1-4 Units (CANCELED)Jump to med 1-4 Units, Subcutaneous, EVERY 4 HOURS SCHEDULED, First dose on Sat10/11/20 at 0000, Until Discontinued, CORRECTION BOLUS [1-4 Units] Sensitive [...] mg/dL in 2 hours., Routine Group 3: POCT Fingerstick Glucose (CANCELED) Routine, EVERY 4 HOURS, First occurrence on Sat10/11/20 at 1200, Until Specified, Consider choosing EVERY 4 HOURS as frequency for: - Type 1 Diabetes - At least 24 hours after coming off an insulin drip - At least 24 hours after admission for DKA - Hypoglycemia unawareness - Patients who are otherwise unstable Select the same frequency for the correction bolus insulin order And insulin lispro (HumaLOG;Admelog) (100 unit/mL) subcutaneous injection vial 1-6 UnitsJump to med 1-6 Units, Subcutaneous, EVERY 4 HOURS SCHEDULED, First dose on Sat10/11/20 at 1245, Until Discontinued, CORRECTION BOLUS [1-6 Units] Moderate Sliding Scale (BG in mg/dL): Correction factor 20 (1 unit of insulin is expected to drop the glucose 20 mg/dL) BG 140 - 160 Give 1 unit BG 161 - 180 Give 2 units BG 181 - 200 Give 3 units BG 201 - 220 Give 4 units BG 221 - 240 Give 5 units BG greater than 240, give 6 units and recheck BG in 2 hours. - If recheck BG is LESS than 240, give no insulin and resume schedule. - If recheck BG is GREATER than 240, give 6 units and repeat BG in 2 hours (no more than 3 times) & call for new insulin orders. DO NOT hold if NPO, unless specifically directed to do so by written order. Per Blood Glucose Monitoring Policy, re-check a BG of > 240 mg/dL in 2 hours., Routine Group 4: [id number] ketamine or placebo 250 mg in sodium chloride 0.9% 250 mL infusion (CANCELED)Jump to med 5 mcg/kg/min ? 114.8 kg (34.44 mL/hr, rounded to 34.4 mL/hr), Intravenous, CONTINUOUS, Starting on Sat10/10/20 at 0700, Until Sat10/12/20 at 0611, 0.5 mg/kg bolus followed by a 5 mcg/kg/min continuous infusion. total dose (bolus plus continuous infusion) should not exceed 500 mg And INV [id number] patient's specific infusion med #2 1 each (CANCELED) 1 each (1 Syringe), Intravenous, CONTINUOUS, Starting on Sat10/10/20 at 0700, Until Sat10/12/20 at 0611, Routine Group 5: glucose (GLUTOSE) 40% oral geLJump to med 15-30 g, Buccal, EVERY 30 MIN PRN, Starting on Sat10/10/20 at 2153, Until Sat10/12/20 at 1518, Low blood sugar, For BG 50-70 mg/dL: Oral treatment preferred:?? If able to drink, give 120 mL Juice or Regular (not diet) soda OR If NPO, give 15 gram glucose 40% oral gel massaged into buccal mucosa OR if unconscious or uncooperative, give 25 gram (250 mL) Dextrose 10% IV over 15 minutes per protocol OR, if no IV access, 1 mg Glucagon IM. For BG less than 50 mg/dL: Oral treatment preferred:?? If able to drink, give 240 mL [...] duration of the active insulin. 1 tube contains 15 grams of glucose (net weight of tube = 37.5 grams., Routine Or dextrose 10% infusionJump to med 250 mL, at 1,000 mL/hr, Intravenous, EVERY 30 MIN PRN, Starting on Sat10/10/20 at 2153, Until Sat10/12/20 at 1518, For BG 50-70 mg/dL: Oral treatment preferred:?? If able to drink, give 120 mL Juice or Regular (not diet) soda OR If NPO, give 15 gram glucose 40% oral gel massaged into buccal mucosa OR if unconscious or uncooperative, give 25 gram (250 mL) Dextrose 10% IV over 15 minutes per protocol OR, if no IV access, 1 mg Glucagon IM. For BG less than 50 mg/dL: Oral treatment preferred:?? If able to drink, give 240 mL [...] Intramuscular, EVERY 30 MIN PRN, Starting on Sat10/10/20 at 2153, Until Sat10/12/20 at 1518, Low blood sugar, For BG 50-70 mg/dL: Oral treatment preferred:?? If able to drink, give 120 mL Juice or Regular (not diet) soda OR If NPO, give 15 gram glucose 40% oral gel massaged into buccal mucosa OR if unconscious or uncooperative, give 25 gram (250 mL) Dextrose 10% IV over 15 minutes per protocol OR, if no IV access, 1 mg Glucagon IM. For BG less than 50 mg/dL: Oral treatment preferred:?? If able to drink, give 240 mL [...] duration of the active insulin., Routine Group 6: ondansetron (Zofran) tablet 4 mgJump to med 4 mg, Oral, EVERY 8 HOURS PRN, Starting on Sat10/11/20 at 0336, Until Sat10/12/20 at 1518, Nausea, Vomiting, If multiple antiemetics are ordered, use ondansetron first. PO Preferred. If patient unable to take PO, may give IV if ordered. May repeat times one in 45 minutes if ineffective., Recovery (Recovery-Hospital Unit), Routine Or ondansetron (pf) (Zofran) (2 mg/mL) injection 4 mgJump to med 4 mg, Intravenous, EVERY 8 HOURS PRN, Starting on Sat10/11/20 at 0336, Until Sat10/12/20 at 1518, Nausea, May repeat times one in 30 minutes if ineffective. If multiple antiemetics are ordered, use ondansetron first, Recovery (Recovery-Hospital Unit) documented in this encounter Care Teams Frame Opener Relationship Specialty Start Date End Date Alo Carey DO [address] [place] [address] [place] [id number] PCP - General Internal Medicine 08/31/20 07/03/23 documented as of this encounter
--- OUTSIDE RECORDS SUMMARY | 2023-10-06 00:44 | XMS_ITS | Encounter Summary ---
Author Organization [facility] [place] [address] Care Team Providers Care Dishwasher Busser Name Role Phone Alo Carey Primary Care Provider [phone] Encounter Details Date Type Department Care Team (Latest Contact Info) Description 10/06/2020 2:00 PM EDT Laboratory [place] [phone] Primary osteoarthritis of left hip; Left leg pain Social History Tobacco Use Types [...] AM EDT Tech [place] [phone] Giacomo Queen 10/11/2023 11:15 AM EDT Office [place] [phone] Basim Barr MD [facility] [place] [address] 10/18/2023 9:00 AM EDT Office Visit Hematology/Oncology at [address] [phone] Cl Hess MD [facility] [place] [address] Y[address]i Renee [address] HEMATOLOGY AND ONCOLOGY [place], [place] [phone] 10/18/2023 9:30 AM EDT Infusion Hematology Oncology at [address] [phone] 10/24/2023 9:30 AM EDT Scheduled View Only Radiation Oncology at [address] [phone] Rad , St Deutsch 10/24/2023 10:00 AM EDT Office Visit Radiation Oncology at [address] [phone] Bigg Peters MD [address] [place] [address] DR RADIATION ONCOLOGY [place], [place] [phone] 11/01/2023 9:00 AM EDT Office Visit Hematology/Oncology at [address] [phone] Cl Hess MD [facility] [place] [address] Yessi Renee, [address] HEMATOLOGY AND ONCOLOGY [place], [place] [address] 11/01/2023 9:30 AM EDT Infusion Hematology Oncology at [address] [phone] 12/24/2023 1:00 PM EDT TH Visit (TeleHealth) Radiation Oncology at [address] [phone] Ping Moore PA [facility] DR HEMATOLOGY [place] [address] documented as of this encounter Procedures Procedure Name Priority Date/Time Associated Diagnosis Comments TYPE AND SCREEN VALIDITY Routine 10/06/2020 2:59 PM EDT ABORH RECHECK STATUS Routine 10/06/2020 2:59 PM EDT HEMOGRAM Routine 10/06/2020 2:59 PM EDT Primary osteoarthritis of left hip Left leg pain DIFFERENTIAL, AUTOMATED Routine 10/06/2020 2:59 PM EDT Primary osteoarthritis of left hip Left leg pain HC ANTIBODY DETECTION,CAPTURE-R Routine 10/06/2020 2:59 PM EDT Primary osteoarthritis of left hip Left leg pain ABO/RH TYPING Routine 10/06/2020 2:59 PM EDT Primary osteoarthritis of left hip Left leg pain HC VENIPUNCTURE Routine 10/06/2020 2:59 PM EDT Primary osteoarthritis of left hip Left leg pain HC PROTHROMBIN TIME Routine 10/06/2020 2 :59 PM EDT Primary osteoarthritis of left hip Left leg pain HC CBC,PLT & AUTO DIFF Routine 10/06/2020 2:59 PM EDT Primary osteoarthritis of left hip Left leg pain ANTIBODY SCREEN Routine 10/06/2020 2:59 PM EDT Primary osteoarthritis of left hip Left leg pain BASIC METABOLIC PANEL Routine 10/06/2020 2:59 PM EDT Primary osteoarthritis of left hip Left leg pain documented in this encounter Results * Type and Screen Validity (10/06/2020 2:59 PM EDT) T&S only valid at [facility] LABORATORY Comment:This Type and Screen result is only valid at the [facility] Blood 10/06/2020 2:59 PM EDT 10/06/2020 3:07 PM EDT Narrative Resulting Agency Comment Spec In Lab Ismael Wu MD BLOOD BANK LAB SAUD CHENG Performing Organization Address City/[facility]/ZIP Co de Phone Number [facility] [place] [address] * ABORH Recheck Status (10/06/2020 2:59 PM EDT) ABORH Recheck Order Order Placed [facility] ABORH Type Recheck Complete [facility] Blood 10/06/2020 2:59 PM EDT 10/06/2020 3:07 PM EDT Narrative Resulting Agency Comment Spec In Lab Ismael Wu MD BLOOD BANK LAB SAUD CHENG Performing Organization Address [facility]/ZIP Co de Phone Number [facility] [place] [address] * Antibody screen (10/06/2020 2:59 PM EDT) Ab Screen Interp Negative [facility] Expires at [id number] on: 10/13/2020 [facility] Blood 10/06/2020 2:59 PM EDT 10/06/2020 3:07 PM EDT Narrative Resulting Agency Comment Spec In Lab Ismael Wu MD BLOOD BANK LAB ORDShante CHENG Performing Organization Address City/[facility]/ZIP Co de Phone Number [facility] [place] [address] * Differential, Automated (10/06/2020 2:59 PM EDT) Neutrophil % 59.3 % [facility] Neutrophil Absolute 3.64 1.70 - 6.10 x10(3)/mcL [facility] Lymph % 28.3 % [facility] Lymphocytes Abs 1.7 0.9 - 3.2 x10(3)/[facility] LABORATORY Monocyte % 9.0 % [facility] Monocyte Abs 0.6 0.3 - 0.9 x10(3)/[facility] LABORATORY Eos % 2.6 % [facility] Eosinophils Abs 0.2 0.0 - 0.4 x10(3)/[facility] LABORATORY Basophil % 0.5 % [facility] Baso Absolute 0.0 0.0 - 0.1 x10(3)/[facility] LABORATORY Immature Gran % 0.30 % [facility] Comment: Immature granulocytes(IG's)percentage and absolute count will include metamyelocytes, myelocytes, and promyelocytes. Blood smears from CBCs yielding IG's will be scanned manually for concordance. If this scan disagrees with the automated IG or if promyelocytes are noted, a manual differential will be performed. Immature Gran Absolute 0.02 0.00 - 0.04 x10(3)/[facility] LABORATORY Blood 10/06/2020 2:59 PM EDT 10/06/2020 3:08 PM EDT Narrative Resulting Agency Comment Spec In Lab Ismael Wu MD HEMATOLOGY ORDERABL ES Performing Organization Address City/[facility]/ZIP Co de Phone Number [facility] [place] [address] * ABO/Rh Typing (10/06/2020 2:59 PM EDT) ABORH Type O Pos [facility] Blood 10/06/2020 2:59 PM EDT 10/06/2020 3:07 PM EDT Narrative Resulting Agency Comment Spec In Lab Ismael Wu MD BLOOD BANK LAB ORDE RABLES Performing Organization Address City/[facility]/ZIP Co de Phone Number [facility] [place] [address] * (ABNORMAL) Hemogram (10/06/2020 2:59 PM EDT) White Blood Cell 6.1 4.0 - 9.5 x10(3)/ L [facility] Red Blood Cell 4.60 4.58 - 5.54 x10(6)/mc L [facility] Hemoglobin 14.7 13.7 - 16.5 gm/dL [facility] Hematocrit 43.3 40.5 - 48.5 % [facility] Mean Cell Volume 94.1(H) 82.9 - 93.1 fL [facility] Mean Cell Hemoglobin 32.0 27.5 - 32.1 pg [facility] Mean Cell Hemoglobin Concentration 33.9 32.0 - 35.7 gm/dL [facility] Platelet 190 145 - 357 x10(3)/[facility] LABORATORY RDW Standard Deviation 45.3(H) 36.0 - 45.0 fL [facility] RDW coefficient of variation 13.2 11.4 - 13.8 % [facility] Mean Platelet Volume 10.2 7.6 - 12.9 fL [facility] NRBC% auto 0.0 % [facility] NRBC Absolute 0.000 0.000 - 0.000 x10(3)/[facility] LABORATORY Blood 10/06/2020 2:59 PM EDT 10/06/2020 3:08 PM EDT Narrative Resulting Agency Comment Spec In Lab Ismael Wu MD HEMATOLOGY ORDERABL ES [facility] [place] [address] * Basic Metabolic Panel (non-fasting) (10/06/2020 2:59 PM EDT) Pathologist [facility] Glucose 195 65 - 199 mg/dL [facility] Comment:Diabetes: >=200 mg/d L plus symptoms Blood Urea Nitrogen 13 10 - 20 mg/dL [facility] Creatinine 0.98 0.80 - 1.50 mg/dL [facility] Sodium 141 135 - 145 mmol/L [facility] Potassium 4.3 3.5 - 5.0 mmol/L [facility] Comment: Please note: ??Patients with WBC >100,000 may have falsely elevated Potassium levels. ??For accurate Potassium quantification in these patients send serum separator tube (gold top) for subsequent determinations. ??Contact the Clinical Chemistry Laboratory if there are any questions. Chloride 103 98 - 107 mmol/L [facility] Carbon Dioxide 23 22 - 31 mmol/L [facility] Anion Gap 15 5 - 15 mmol/L [facility] Calcium 9.8 8.5 - 10.5 mg/dL [facility] Est Glomerular Filtration Rate 77 >=60 mL/min/1. 73 m?? [facility] Comment: This patient? s estimated glomerular filtration rate (eGFR) is between 77 mL/min/1.73 m2 (patients with less muscle mass per kg body weight) and 89 mL/min/1.73 m2 (patients with more muscle mass [...] and symptoms in addition to eGFR. Blood 10/06/2020 2:59 PM EDT 10/06/2020 3:08 PM EDT Narrative Resulting Agency Comment Spec In Lab Ismael Wu MD CHEMISTRY ORDERABLE S [facility] [place] [address] * Prothrombin Time (10/06/2020 2:59 PM EDT) Prothrombin Time 11.1 9.4 - 12.5 sec [facility] International Normalization Ratio 1.0 [facility] Comment: An INR <2.0 indicates [...] be appropriate depending on clinical circumstances. Blood 10/06/2020 2:59 PM EDT 10/06/2020 3:08 PM EDT Narrative Resulting Agency Comment Spec In Lab Ismael Wu MD HEMATOLOGY ORDERABL ES Performing Organization Address City/[facility]/ZIP Co de Phone Number [facility] [place] [address] * APTT (10/06/2020 2:59 PM EDT) Partial Thromboplastin Time 32 25 - 37 sec [facility] Comment: The PTT is NOT appropriate for heparin monitoring. Use the Anti-Xa level for heparin monitoring (HEP UFH) or LMWH monitoring (HEP LMW). A PTT less than 37 seconds generally indicates adequate hemostasis. Blood 10/06/2020 2:59 PM EDT 10/06/2020 3:08 PM EDT Narrative Resulting Agency Comment Spec In Lab Ismael Wu MD HEMATOLOGY ORDERABL ES Performing Organization Address City/[facility]/ZIP Co de Phone Number [facility] [place] [address] documented in this encounter Visit Diagnoses Diagnosis Primary osteoarthritis of left hip Primary localized osteoarthrosis, pelvic region and thigh Left leg pain Pain in limb documented in this encounter Care Teams Dishwasher Busser Relationship Specialty Start Date End Date Alo Carey DO [address] [place] [address] [place] [address] PCP - General Internal Medicine 08/31/20 07/03/23 documented as of this encounter
--- OUTSIDE RECORDS SUMMARY | 2023-10-06 00:44 | XMS_ITS | Encounter Summary ---
Author Organization [facility] Address [facility] [place] [address] Care Team Providers Care Industrial Relations Worker Name Role Phone YungAlo santiago Primary Care Provider [phone] Reason for Visit * Consultation (YASSINE) - Closed Specialty Diagnoses / Procedures Referred By Marques livingston Referred To Contact Urology Diagnoses Malignant neoplasm of prostate Dr. Myers has requested simultaneous appointments with Dr. Engle and Dr. Naylor -- retention, high risk prostate ca Rock Myers MD [address] [place] [address] Spenser Naylor MD [facility] [address] Referral ID Status Reason Start Date Expiration Date V isits Requested Visits Authorized [id number] Closed Consult, Test & Treat 11/25/2020 11/25/2021 6 6 Encounter Details Date Type Department Care Team (Latest Contact Info) Description 01/16/2021 2:00 PM EST TH Visit (TeleHealth) [place] [address] Cayetano Engle MD [facility] [address] Benign prostatic hyperplasia, unspecified whether lower urinary tract symptoms present; Malignant neoplasm of prostate Social History Tobacco [...] on file documented as of this encounter Patient Instructions * Patient Instructions* Cayetano Engle MD - 01/16/2021 2:00 PM EST Instructions Prior to Surgery Prior to this procedure it is important to have normal blood clotting. Please discuss with your Primary Care Provider or the provider managing your blood thinner medication(s) listed below, to stop your medications safely before your surgical procedure. Aspirin Coumadin (Warfarin) Plavix (Clopidogrel); Prasugrel (Effient); OR Ticagrelor (Brilinta) Xarelto (Rivaroxaban) OR Eliquis (Apixaban) Pradaxa (Dabigatran Etextilate) If you cannot confirm the safety of stopping your medications with your provider, or the provider does not approve of stopping these medications at an appropriate time frame, please contact the Urology Clinic to cancel the planned surgery and discuss other appropriate options. documented in this encounter Progress Notes * Cayetano Engle MD - 01/16/2021 2:00 PM EST Called patient for the appointment. Patient consented to proceed with a Telehealth visit and understands that this will be billed similar to a clinic visit. HPI 70 y.o. M with hx DM2, CAD s/p CABG (2018), CVA (on ASA/plavix), carotid dz (s/p CEA 08/2020), OLGA, prostate cancer, who is referred for an episode of postop urinary retention. Patient had urinary retention after a left hip replacement in 10/2020. He had a catheter for a week and was started on flomax. He passed void trial with PVR 107mL. He tried stopping flomax but PVR elevated to 400mL. It came back to 180 when he restarted. UCx showed citrobacter (boo-sensitive) and he was treated with a course for presumed prostatitis toavoid seeding his new joint. Currently takes flomax 0.8mg Drinks 4-5 cups coffee in AM. Otherwise gatorade, sprite, or beer. Occasionally drinks water. IPSS 6 (0/2/1/2/1/0/0); QoL 3 Prostate size: 50g Last PSA: 21.6 (steadily aleksandr from 11 to 15 to 18). PBx reportedly showed low volume, low risk prostate cancer and he was advised active surveillance at that time by his urologist in [place]. 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 Phone visits scheduled with Dr. Naylor on 01/24/21 and with radiation oncology in [facility] on01/20/21. Anticoagulation? On ASA/plavix PMH and PSH Reviewed. No relevant changes. Imaging: MRI prostate, bone scan, CT a/p (see HPI) Assessment: 70M with several cardiovascular comorbidities on ASA/plavix who has high risk prostate cancer and obstructive LUTS requiring alpha-blockers to keep from going into retention. He has an appointment with Dr. Naylor, but explained that given his comorbidities, surgical resection of the prostate does not make sense. Therefore he will likely recommend proceeding with radiation and ADT. Explained that radiation has the potential to cause his prostate to swell and he could require a catheter to get through radiation before he could then ultimately undergo a TURP, but he would have poor healing after radiation. Offered the other option of doing a PVP upfront to help his urination and get off flomax, then treat with radiation 4 months after the procedure. He could be started on ADT in the meantime. Patient agreed with the latter plan. Therefore I discussed expectations and risks for PVP. Plan: - Schedule PVP - Continue ASA/plavix through surgery - Treat with ciprofloxacin x7 days to start 3 days prior to surgery. Greater than 50% of the TeleHealth visit was spent on the phone with the patient. Total time of this telehealth visit including decision making and planning was 45min Cayetano Engle MD 01/16/2021 1:58 PM ??? I spent 60minutes reviewing the patient's diagnostic tests, speaking with the patient, and documenting in the record. documented in this encounter Plan of Treatment Upcoming Encounters Date Type Department Care Team (Late st Contact Info) Description 10/11/2023 10:00 AM EDT Tech Visit [place] [phone] Giacomo Queen 10/11/2023 11:15 AM EDT Office Visit [place] [phone] Basim Barr MD [facility] [place] [address] 10/18/2023 9:00 AM EDT Office Visit Hematology/Oncology at [address] [phone] Cl Hess MD [facility] [place] [address] Yessi Renee APRN [address] [place] [address] DR HEMATOLOGY AND ONCOLOGY [place], [place] [phone] 10/18/2023 9:30 AM EDT Infusion Hematology Oncology at [address] [phone] 10/24/2023 9:30 AM EDT Scheduled View Only Radiation Oncology at [address] [phone] [facility] 10/24/2023 10:00 AM EDT Office Visit Radiation Oncology at [address] [phone] Bigg Peters MD [address] [place] [address] DR RADIATION ONCOLOGY [place], [place] [phone] 11/01/2023 9:00 AM EDT Office Visit Hematology/Oncology at [address] [phone] Cl Hess MD [facility] [place] [address] Yessi Renee APRN [address] [place] [address] DR HEMATOLOGY AND ONCOLOGY [place], [place] [phone] 11/01/2023 9:30 AM EDT Infusion Hematology Oncology at [address] [phone] 12/24/2023 1:00 PM EDT TH Visit (TeleHealth) Radiation Oncology at [address] [phone] Ping Moore PA [facility] DR [place] [address] Scheduled Orders Name Type Priority Associated Diagnoses Orde r Schedule SURGICAL CASE REQUEST NO POSTOP PAIN: CYSTO, LASER TURP (WRVU 12.15) Procedures Routine Benign prostatic hyperplasia, unspecified whether lower urinary tract symptoms present One Time for 1 Occurrences starting 01/16/2021 until 01/16/2021 documented as of this encounter Visit Diagnoses Diagnosis Benign prostatic hyperplasia, unspecified whether lower urinary tract symptoms present Malignant neoplasm of prostate documented in this encounter Care Teams Industrial Relations Worker Relationship Specialty Start Date End Date Alo Carey DO [address] [place] [address] [place] [address] PCP - General Internal Medicine 08/31/20 07/03/23 documented as of this encounter
--- OUTSIDE RECORDS SUMMARY | 2023-10-06 00:44 | XMS_ITS | Encounter Summary ---
[place] [address] Care Team Providers Care Manager Database Administration Name Role Phone Alo Carey Primary Care Provider [phone] Encounter Details Date Type Department Care Team (Latest Contact Info) Description 10/06/2020 2:00 PM EDT Clinical [place] [phone] Primary osteoarthritis of left hip; Left leg [...] Sign Reading Time Taken Comments Blood Pressure 163/78 10/06/2020 1:51 PM EDT Pulse 75 10/06/2020 1:51 PM EDT Temperature - - Respiratory Rate - - Oxygen Saturation 95% 10/06/2020 1:51 PM EDT Inhaled Oxygen Concentration - - Weight 114.8 kg (253 lb) 10/06/2020 1:51 PM EDT Height 180.3 cm (5' 11) 10/06/2020 1:51 PM EDT Body Mass Index 35.29 10/06/2020 1:51 PM EDT documented in this encounter Progress Notes * Margarita Wilkerson RN - 10/06/2020 2:00 PM EDT PATabbreviated questionnaire reviewed with patient and ROBEL Alford while in Pre Admission testing.Pt has had anesthesia in the past. Pre-operative instruction booklet reviewed. Patient verbalizes agood understanding of all information reviewed. PLAN: Testing: Type and screen, other labs, EKG Special medication instructions: clearfast 1 bottle 3 hours prior to surgery. Pt reports last dose of plavix and aspirin 10-01-20. Procedure date: 10-10-20 Dr Wu Pre Surgery Covid screening: Were you diagnosed with COVID 19 or had symptoms consistent with COVID19 within the last 3 months. No Covid 19 vaccine card scanned into chart. Have asked Makeda Navarro To requests records from [facility]. (12-03-2018 CABG)Dr Funes [phone]. [facility] (Carotid surgeries) Dr Bustamante [phone]. Dr Borrero aware we have requested records. documented in this encounter Plan of Treatment Upcoming Encounters Date Type Department Care Team (Late st Contact Info) Description 10/11/2023 10:00 AM EDT Tech [place] [address] Giacomo Queen 10/11/2023 11:15 AM EDT Office Visit [place] [phone] Basim Barr MD [facility] [place] [address] 10/18/2023 9:00 AM EDT Office Visit Hematology/Oncology at [address] [phone] Cl Hess MD [facility] [place] [address] Yessi Renee APRN [address] [place] [address] DR HEMATOLOGY AND ONCOLOGY [place], [place] [address] 10/18/2023 9:30 AM EDT Infusion Hematology Oncology at [address] [phone] 10/24/2023 9:30 AM EDT Scheduled View Only Radiation Oncology at [address] [phone] [address] [facility] 10/24/2023 10:00 AM EDT Office Visit Radiation Oncology at [address] [phone] Bigg Peters MD [address] [place] [address] DR RADIATION ONCOLOGY [place], [place] [phone] 11/01/2023 9:00 AM EDT Office Visit Hematology/Oncology at [address] [phone] Cl Hess MD [facility] [place] [address] Yessi Renee APRN [address] [place] [address] DR HEMATOLOGY AND ONCOLOGY [place], [place] [phone] 11/01/2023 9:30 AM EDT Infusion Hematology Oncology at [address] [phone] 12/24/2023 1:00 PM EDT TH Visit (TeleHealth) Radiation Oncology at [address] [phone] Ping Moore PA [facility] HEMATOLOGY [place] [address] documented as of this encounter Procedures Procedure Name Priority Date/Time Associated Diagnosis Comments EKG 12-LEAD Routine 10/06/2020 2:46 PM EDT Primary osteoarthritis of left hip Left leg pain documented in this encounter Results * EKG 12 Lead (10/06/2020 2:46 PM EDT) Ventricular rate 71 BPM MUSE SYSTEM Atrial Rate 71 BPM MUSE SYSTEM P-R Interval 176 ms MUSE SYSTEM QRS Duration 98 ms MUSE SYSTEM Q-T Interval 402 ms MUSE SYSTEM QTC Calculated (Bezet) 436 ms MUSE SYSTEM Calculated P [place] 62 degrees MUSE SYSTEM Calculated R [place] -11 degrees MUSE SYSTEM Calculated T [place] 37 degrees MUSE SYSTEM INTERPRETATION Normal sinus rhythm Normal ECG No previous ECGs available Confirmed by Janki Allred MD ([id number]) on 10/06/2020 3:29:14 PM MUSE SYSTEM 10/06/2020 2:46 PM EDT 10/06/2020 3:29 PM EDT Ismael Wu MD ECG ORDERABLES MUSE SYSTEM documented in this encounter Visit Diagnoses Diagnosis Primary osteoarthritis of left hip Primary localized osteoarthrosis, pelvic region and thigh Left leg pain Pain in limb documented in this encounter Care Teams Manager Database Administration Relationship Specialty Start Date End Date Alo Carey DO [address] [place] [address] Dr [place], [place] [phone] PCP - General Internal Medicine 08/31/20 07/03/23 documented as of this encounter
--- OUTSIDE RECORDS SUMMARY | 2023-10-06 00:44 | XMS_ITS | Encounter Summary ---
[facility] [place] [address] Care Team Providers Care Washroom Cleaner Name Role Phone Alo Carey DO Primary Care Provider Encounter Details Date Type Department Care Team (Late st Contact Info) Description 09/20/2020 Telephone [place] [phone] Jennifer Lantigua RN Social History Tobacco Use Types Packs/Day [...] encounter Miscellaneous Notes * Telephone Encounter - Jennifer Lantigua RN - 09/20/2020 3:12 PM EDT Patient called per Dr. Mai. Patient instructed to stop his Plavix on 10/04/20 . Patient verbalized understanding regarding the above instruction given. Jennifer Lantigua RN [facility] [place] * Telephone Encounter - Jennifer Lantigua RN - 09/20/2020 3:11 PM EDT ----- Message from Pedro Mai MD sent at 09/20/2020 2:43 PM EDT ----- Regarding: RE: 10/10/2020 [place] LEFT JIMI , PLAVIX AND 81MG Please instruct him to take last dose of Plavix on October 04 ----- Message ----- From: Jennifer Lantigua RN Sent: 09/20/2020 2:37 PM EDT To: Pedro Mai MD Subject: FW: 10/10/2020 [place] LEFT JIMI , PLAVIX AND# Hi Dr. Mai, this patient is apparently on Plavix. You are seeing patient just 4 days before his surgery for Pre- OP. Thought you should know. Jennifer Lantigua RN [facility] [place] ----- Message ----- From: Brenda Potts Sent: 09/20/2020 11:47 AM EDT To: [facility] Subject: 10/10/2020 [place] LEFT JIMI , PLAVIX AND 81MG documented in this encounter Plan of Treatment Upcoming Encounters Date Type Department Care Team (Late st Contact Info) Description 10/11/2023 10:00 AM EDT Tech [place] [phone] Giacomo Queen 10/11/2023 11:15 AM EDT Office Visit [place] [address] Basim Barr MD [facility] [place] [address] 10/18/2023 9:00 AM EDT Office Visit Hematology/Oncology at [address] [phone] Cl Hess MD [facility] [place] [address] Yessi Renee APRN [address] [place] [address] DR HEMATOLOGY AND ONCOLOGY [place], [place] [id number] 10/18/2023 9:30 AM EDT Infusion Hematology Oncology at [address] [phone] 10/24/2023 9:30 AM EDT Scheduled View Only Radiation Oncology at [address] [phone] Rad Nurse, [place] 10/24/2023 10:00 AM EDT Office Visit Radiation Oncology at [address] [phone] Bigg Peters MD [address] [place] [address] DR RADIATION ONCOLOGY [place], [place] [id number] 11/01/2023 9:00 AM EDT Office Visit Hematology/Oncology at [address] [phone] Cl Hess MD [facility] [place] [address] Yessi Renee APRN [address] [place] [address] DR HEMATOLOGY AND ONCOLOGY [place], [place] [id number] 11/01/2023 9:30 AM EDT Infusion Hematology Oncology at [address] [phone] 12/24/2023 1:00 PM EDT TH Visit (TeleHealth) Radiation Oncology at [address] [phone] Ping Moore PA [facility] HEMATOLOGY [place] [address] documented as of this encounter Visit Diagnoses Not on filedocumented in this encounter Care Teams Washroom Cleaner Relationship Specialty Start Date End Date Alo Carey DO [address] [place] [address] [place] [address] PCP - General Internal Medicine 08/31/20 07/03/23 documented as of this encounter
--- OUTSIDE RECORDS SUMMARY | 2023-10-06 00:44 | XMS_ITS | Encounter Summary ---
Author Organization [facility] [place] [address] Care Team Providers Care Medical Researcher Name Role Phone Alo Carey DO Primary Care Provider [phone] Encounter Details Date Type Department Care Team (Late st Contact Info) Description 10/06/2020 Notes [place] [phone] Robert Chaney Social History Tobacco Use Types Packs/Day Years [...] as of this encounter Progress Notes * Robert Chaney - 10/06/2020 4:32 PM EDT Protocol: Randomized Blinded, Placebo Controlled Trial of Intraoperative Ketamine for Patients Undergoing Total Joint Arthroplasty. Study Number: [id number] PI: Rodrick Chisholm Visit: Pre-op Visit Date:10/06/2020 Patient Number:[id number] CONSENT Informed consent for the above entitled study was reviewed with subject in detail. The details of the study, length of study, and risks were reviewed with subject. Upon review, subject verbalized adequate understanding of the protocol and signed the consent along with myself. No study procedures were initiated prior to signing the consent. A copy was provided to subject, and the original consent will be kept in the study chart. I reviewed initial inclusion and exclusion criteria, will continue to review medical history. Subject meets ALL of the inclusion criteria for entry into the study. 1) Adults, 18 years and older, undergoing primary total hip arthroplasty or total knee Arthroplasty. Subject DOES NOT meet any of the exclusion criteria that warrant him/her to be excluded from this study. 1) History of intolerance or allergy to ketamine, either documented or self-reported. ??? 2) History of increased intra-ocular pressure. 3) Uncontrolled hypertension. 4) Increased intra-cranial pressure. 5) Psychosis. ??? 6) Unable to provide consent. ??? 7) Current incarceration. ??? 8) or breast feeding. The subject has been given a copy of the signed and dated ICF document, and the original has been retained with our source documents. All Patient Reported Outcome forms were captured in [employer]. The patient diary was dispensed to the subject. Schedule of events were reviewed with the subject. Verbalized understanding of follow-up time points and tasks, subject agrees to all. Encouraged to call with any questions/concerns. documented in this encounter Plan of Treatment Upcoming Encounters Date Type Department Care Team (Late st Contact Info) Description 10/11/2023 10:00 AM EDT Tech Visit [place] [address] Giacomo Queen 10/11/2023 11:15 AM EDT Office Visit [place] [address] Basim Barr MD [facility] [place] [address] 10/18/2023 9:00 AM EDT Office Visit Hematology/Oncology at [address] [phone] Cl Hess MD [facility] [place] [address] Yessi Renee APRN [address] [place] [address] DR HEMATOLOGY AND ONCOLOGY [place], [place] [address] 10/18/2023 9:30 AM EDT Infusion Hematology Oncology at [address] [phone] 10/24/2023 9:30 AM EDT Scheduled View Only Radiation Oncology at [address] [phone] Rad Nurse, [place] 10/24/2023 10:00 AM EDT Office Visit Radiation Oncology at [address] [phone] Bigg Peters MD [address] [place] [address] DR RADIATION ONCOLOGY [place], [place] [phone] 11/01/2023 9:00 AM EDT Office Visit Hematology/Oncology at [address] [phone] Cl Hess MD [facility] [place] [address] Yessi Renee APRN [address] [place] [address] DR HEMATOLOGY AND ONCOLOGY [place], [place] [id number] 11/01/2023 9:30 AM EDT Infusion Hematology Oncology at [address] [phone] 12/24/2023 1:00 PM EDT TH Visit (TeleHealth) Radiation Oncology at [address] [phone] Ping Moore PA [facility] HEMATOLOGY [place] [address] documented as of this encounter Visit Diagnoses Not on filedocumented in this encounter Care Teams Medical Researcher Relationship Specialty Start Date End Date Alo Carey DO [address] [place] [address] [place] [address] PCP - General Internal Medicine 08/31/20 07/03/23 documented as of this encounter
--- OUTSIDE RECORDS SUMMARY | 2023-10-06 00:44 | XMS_ITS | Encounter Summary ---
[place] [address] Care Team Providers Care Policy Writer Typist Name Role Phone CherryAlo Lon RUTHERFORD Primary Care Provider [phone] Reason for Visit * Auth/Cert Specialty Diagnoses / Procedures Referred By Marques livingston Referred To Contact Diagnoses Left hip osteoarthritis Procedures PRO TOTAL HIP ARTHROPLASTY TOTAL HIP ARTHROPLASTY - POSTERIOR (WRVU 20.72) MODIFIER ACTIS HIP STEM DEPUY MODIFIER PINNACLE ACETABULUM DEPUY Referral ID Status Reason Start Date Expiration Date Visits Re quested Visits Authorized [id number] 1 1 Encounter Details Date Type Department Care Team (Latest Contact Info) Description 10/10/2020 1:06 PM EDT - 10/12/2020 1:18 PM EDT Hospital Encounter [address] [place] [address] Ismael Wu MD [facility] [place] [address] Primary osteoarthritis of left hip; s/p L JIMI, posterior, Dr. Wu, 10/10/20 Discharge Disposition: Home with VNA Social History [...] Sign Reading Time Taken Comments Blood Pressure 142/68 10/12/2020 12:04 PM EDT Pulse 73 10/10/2020 10:15 PM EDT Temperature 36.6 ??C (97.9 ??F) 10/12/2020 1 2:04 PM EDT Respiratory Rate 20 10/12/2020 12:0 4 PM EDT Oxygen Saturation 94% 10/12/2020 12: 04 PM EDT Inhaled Oxygen Concentration - - Weight 114.8 kg (253 lb 1.4 oz) 10/10/2020 2:34 PM EDT Height 180.3 cm (5' 10.98) 10/10/2020 2:34 PM E DT Body Mass Index 35.31 10/10/2020 2:34 PM EDT documented in this encounter Discharge Summaries * Sydney Liz P, TYRE FITTER - 10/11/2020 12:39 PM EDT Discharge Summary Patient Name: Wero Sadler Patient Age: 70 y.o. Language: Iranian Race: White Ethnicity: Not nor Admit date: 10/10/2020 Discharge date and time: 10/12/2020 Attending Physician: Ismael Wu MD Discharge Physician: Ismael Wu MD Follow-up Recommendations for Providers: 1. The patient will need to f/u with his Urologist, Dr. Myers, on 10/17/2020, for a voidingtrial. See discharge instructions for additional details. Future Appointments Date Time Provider Department Center 11/17/2020 12:30 PM [facility] DX ROOM 6 Xray [facility] Rad 11/17/2020 1:30 PM Ismael Wu MD [facility] [place] 3C [facility] Inpatient Provider Contact Information: Ismael Wu MD Orthopedics: [phone] After hours and weekends, call [facility] Brush Holder Assembler, , and have the Orthopedic resident paged. [...] patients who have questions pleasecontact the health primary care physician that requested your imaging first. ay Pelvis (Generic) Result Date: 10/11/2020 EXAMINATION: XR [...] who have questions please contact the health primary care physician that requested your imaging first. Electronically signed by: Claudio [facility] ([phone]), at 10/11/2020 8:30 AM XRay Hip 1 view Left Result [...] who have questions please contact the health primary care physician that requested your imaging first. Electronically signed by:Claudio Ward [facility] ([phone]), at 10/11/2020 8:31 AM XRay Hip 1 [...] who have questions please contact the health primary care physician that requested your imaging first. Electronically signed by: Claudio Ward [facility] ([phone]), at 10/11/2020 8:29 AM Pending Studies and Lab Data at Discharge: None Transfusions: No Discharge Conditions/Prognosis: Stable, awake, and alert. Mobilizing as noted above, pain controlled on oral medications. Discharge to: Home with VNA. Updated Allergies/ADRs: Allergies Allergen Reactions ??? Other [Unclassified Drug] Had reaction to a dye used during vascular procedure at [facility] in [place] Immunizations Given this Hospitalization: There is no [...] bowel movement. You can also take an pjvj-tpb-qbdkrdi medication, Miralax if needed to combat constipation. [...] Some patients have an additional item called Prinlarry on their skin. If you have this [...] as much as possible. Call your doctor ([phone]) if you develop: 1. Fever greater than 100.5 2. Severe nausea or vomiting 3. Increasing pain that is not controlled by pain medications 4. Increasing redness, swelling, or drainage from incisions 5. Change in sensation FOLLOW-UP APPOINTMENTS: 1. You will have follow-up appointments at [facility] as indicated below in Future Appointment and Orders. 2. You will need to have x-rays prior to your follow-up appointment on 11/17/2020. Please come to Radiology, desk 3T, 1 hour BEFORE that appointment for these x-rays. Future Appointments Date Time Provider Department Center 11/17/2020 12:30 PM [facility] DX ROOM 6 MH Xray [facility] Rad 11/17/2020 1:30 PM Ismael Wu MD [facility] [place]TH [address] [place] [address] If you have questions or concerns: Saturday through Saturday, 8 AM - 5 PM, please call Dr. Ismael Wu MD's office at . If it is after 5 PM, the weekend, or holidays, please call and ask to speak with theOrthopedic resident on-call. General Instructions None Future Appointments and Orders Future Appointments and Orders Future Appointments Provider Department Dept Phone 11/17/2020 12:30 PM [facility] DX ROOM 6 XRay at [facility] Arrive at: Operator Engineer Area [phone] Please go to Operator Engineer Area 3T ([place] Location). 11/17/2020 1:30 PM Ismael Wu MD Orthopaedics at [facility] Arrive at: Operator Engineer Area [phone] Future Orders Complete By Expires Referral to Home Health - at DISCHARGE [[id number] CPT(R)] As directed Process Instructions: Scheduling Instructions: Comments: DOCUMENTATION FOR VNA SERVICES (INCLUDING PATIENTS WITH MEDICARE COVERAGE BEING DISCHARGED HOME WITH VNA SERVICES AND/OR HOSPICE SERVICES) PATIENT'S LOCATION: Wero Sadler Discharge to own home: [address] [place] [address] Child Welfare Counselor's Name: self/patient In discussion with the attending physician, it is certified that this patient is under their care and that they, or a nurse practitioner, clinical nurse specialist or physician's pharmacist assistant who is working directly with them, [...] for home health services. HOME HEALTH AGENCY: [facility] PHONE: [phone] FAX: [phone] Detention(SN) eval if indicated on admission visit Witt [...] from this patient's PCP: Alo Carey DO [address] [place] [address] [place] [phone] All A agencies which cover patient's residence area have been reviewed, either verbally or in writing, and patient/family have chosen the indicated home health agency. Questions: Agency name and contact information: [facility] Patient location post discharge: home What services are requested: Physical Therapy Occupational Therapy Start date: Responsible MD post discharge contact info: Primary Care Provider: Alo Carey DO [phone] Discharge References/Attachments INDWELLING URINARY CATHETER CARE: GENERAL INFO (BELGIAN) URINARY RETENTION (BELGIAN) documented in this encounter Discharge Instructions * Patient Instructions* Liz Grimes, TYRE FITTER - 10/11/2020 12:32 PM EDT Activity: 1. [...] bowel movement. You can also take an rxot-wba-pyrilqf medication, Miralax if needed to combat constipation. [...] as much as possible. Call your doctor ([phone]) if you develop: 1. Fever greater than 100.5 2. Severe nausea or vomiting 3. Increasing pain that is not controlled by pain medications 4. Increasing redness, swelling, or drainage from incisions 5. Change in sensation FOLLOW-UP APPOINTMENTS: 1. You will have follow-up appointments at [facility] as indicated below in Future Appointment and Orders. 2. You will need to have x-rays prior to your follow-up appointment on 11/17/2020. Please come to Radiology, desk 3T, 1 hour BEFORE that appointment for these x-rays. Future Appointments Date Time Provider Department Center 11/17/2020 12:30 PM [facility] DX ROOM 6 Xray [facility] Rad 11/17/2020 1:30 PM Ismael Wu MD [facility] [place] [address] [place] [address] If you have questions or concerns: Saturday through Saturday, 8 AM - 5 PM, please call Dr. Ismael Wu MD's office at . If it is after 5 PM, the weekend, or holidays, please call and ask to speak with [facility] on[facility]call. * Attachments The following attachments cannot be sent through Care Everywhere. * INDWELLING URINARY CATHETER CARE: GENERAL INFO (BELGIAN) * URINARY RETENTION (BELGIAN) documented in this encounter Medications at Time [...] AM EDT Patient discharged to home with A services. IV removed, site benign. My assessment [...] Time Provider Department Center 11/17/2020 12:30 PM [facility] DX ROOM 6 MH Xray [facility] Rad 11/17/2020 1:30 PM Ismael Wu MD [facility] [place] 3C [facility] Associated attestation - Ismael Wu MD - [...] Wu MD, MSc Division of Adult Reconstructive Crystal Growing TechnicianCrozer of Orthopaedics Department of Orthopaedics [facility] [phone] [email or web address] * Savanah Guadalupe RN - 10/11/2020 5:44 [...] running. Tolerating carb control diet well. 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 Blood glucose elevated, controlled with insulin. Straight [...] 20.72) performed by Ismael Wu MD at [facility] MAIN OR Active Non-Hospital Problems Diagnosis ??? [...] precautions (no adduction, internal rotation, or flexion qyalin47 degrees, wedge at night) Mobility and Positioning [...] for this consult. Time IN / OUT: 5971-5103 Total Minutes, Physical Therapy: 40 (low complexity) [...] as outlined in this evaluation. * Danni Orona OT - 10/11/2020 9:34 AM EDT Occupational [...] 20.72) performed by Ismael Wu MD at [facility] MAIN OR Social History: Patient lives with [...] He reports he has an appointment w/ [facility] and may get a white cane, nabil vale Communication: WFL Range of motion, strength, coordination: Hand dominance: right Bilateral UEs are within functional limitations LE limitations: s/p L JIMI, enhanced precautions Activities of Daily Living: Self-feeding: seated w/ setup Grooming: standing w/ CGA to SBA and FWW, cue for squaring up Dressing: LB dressing: issued a menagerie superintendent and soft sockaid, though had difficulty using a soft sockaid (hard sockaids out of stock here)-reported he doesn't wear socks very much and can have assist fornow; donned pants w/ menagerie superintendent and cues for technique, difficult w/ suspenders [...] and measurable assessment of functional outcome. Pager: [phone] DANNI ORONA OT 10/11/2020 Occupational Therapy Rehabilitation [...] unit/mL) subcutaneous injection vial 1-4 Units ??? [id number] ketamine or placebo 250 mg in sodium chloride 0.9% 250 mL infusion AND INV [id number] patient's specific infusion med #2 1 each ??? sodium chloride 0.9% 1,000 mL (10/10/202132) ??? [id number] ketamine 100 mg/mL or placebo in sodium chloride 0.9% 500 mL infusion Stopped (10/10/202024) And ??? INV [id number] patient's specific infusion med #2 OBJECTIVE: Temp: [...] Time Provider Department Center 11/17/2020 12:30 PM [facility] DX ROOM 6 MH Xray [facility] Rad 11/17/2020 1:30 PM Ismael Wu MD [facility] [place] [facility]C [facility] Associated attestation - Ismael Wu MD - [...] Wu MD, MSc Division of Adult Reconstructive Crystal Growing TechnicianCrozer of Orthopaedics Department of Orthopaedics [facility] [phone] [email or web address] * Cayetano Tobar MD - 10/11/2020 12:40 [...] unit/mL) subcutaneous injection vial 1-4 Units ??? [id number] ketamine or placebo 250 mg in sodium chloride 0.9% 250 mL infusion AND INV [id number] patient's specific infusion med #2 1 each ??? sodium chloride 0.9% 1,000 mL (10/10/202132) ??? [id number] ketamine 100 mg/mL or placebo in sodium chloride 0.9% 500 mL infusion Stopped (10/10/202024) And ??? INV [id number] patient's specific infusion med #2 OBJECTIVE: Temp: [...] Time Provider Department Center 11/17/2020 12:30 PM [facility] DX ROOM 6 MH Xray [facility] Rad 11/17/2020 1:30 PM Ismael Wu MD [facility] [place]C [facility] Associated attestation - Ismael Wu MD - 10/12/2020 9:53 AM EDT Images from the original note were not included. Department of Orthopaedics Division of Adult Joint Reconstructive Surgery October 12, 2020 I had the pleasure of evaluating Wero Sadler in the hospital in conjunction with Dr. Fort. I haveseen and examined the patient and reviewed the history/physical and I agree with the details as written. The assessment and plan were formulated in discussion with me and I agree with them as documented. Ismael Wu MD, MSc Division of Adult Reconstructive Crystal Growing TechnicianCrozer of Orthopaedics Department of Orthopaedics [facility] [phone] [email or web address] * Junaid Diallo RN - 10/10/2020 11:19 [...] Wu MD, MSc Division of Adult Reconstructive Crystal Growing TechnicianCrozer of Orthopaedics Department of Orthopaedics [facility] [phone] [email or web address] documented in this encounter Miscellaneous Notes * [...] care provider on file: Alo Carey DO [phone] Advance Directive on file and Code Status: <no information>, Attempt Cardiopulmonary Resuscitation - Inpatient The patient will require VNA services post-op: yes, patient/caregivers were educated about their right to choose where referrals are placed patient lives in [place], no preference on VNA. ?? Prep for Surgery Advance Directive: Has one (will bring in copy) Recommend referral to Patient Financial Services: (P) No Living arrangement: (P) House Home layout: (P) Two level, Able to live on main level Number of stairs within home: (P) 13 Who will provide post-op care and support: (P) Brother and Lspzfw-fj-uel (Damian Sadler and TianaRichard) Who will provide transportation home: (P) Brother (Damian Sadler) Patient's desired discharge disposition: (P) Home with VNA Top 3 nursing choice facilities: (P) None VNA preference: (P) TBD Outpatient PT preference: (P) [facility] PT Discharge barriers and challenges: (P) None ?? The patient prefers two-wheeled walker to help with post-operative ambulation. The patient has a walker and will bring it to surgery. Functional Status prior to admission:independent with ADLs and mobility Functional Status current: assist of staff Living Situation: [address] [facility] [address] Supports: patient has two brothers who are [...] referrals are placed. Patient requests referral to [facility]. PHONE: [phone] FAX: [phone] Expected date of discharge: today Referral routed to the Hydrologic Modeler for matching with agency/vendor and to provide [...] home via private car when medically ready. marbleizing machine tender/Material Damage Adjuster will continue to follow patient???s progress and remain available if situation changes for coordination of care, psychosocial support and/or discharge planning. Patricia Ramirez, RN, [facility] Pager [phone] * Op Note - Ismael Wu MD - 10/10/2020 5:49 PM EDT [facility] Operative Note Patient Name: Wero Sadler : [id number] MR#: [id number] Case Date: 10/10/2020 Surgeon: Surgeon(s) and Role: [...] of full thickness cartilage loss. IMPLANTS: System: Aditazz Femoral Stem: Actis high offset, Size 7; collared, SCOTT coated Acetabulum: [place] size 60mm Liner: 36 x 60 neutral liner Femoral Head: 36mm +1.5mm ceramic head Implant Type Status Implanted on Explanted on Expires on Delete SHELL ACET HIP 60MM POR CTD MULTI HOLE TI PINNACLE GRIPTION ([id number]) (AUTOREQ) - [id number] IMPLANTS Implanted 10/10/2020 07/01/2030 LINER ACET HIP [id number] STND POLY PINNACLE ALTRX ([id number]) (AUTOREQ) - [id number] IMPLANTS Implanted10/10/2020 08/31/2025 HEAD FEMORAL HIP 36MM +1.5MM OFFSET 11/13 TAPER CERAMIC ([id number]) (AutoReq) - [id number] IMPLANTS Implanted 10/10/2020 07/01/2025 STEM FEMORAL HIP SZ 7 PROX 02/14 TAPER POR CLLR HIGH OFST TI ([id number]) (AutoReq) - [id number] IMPLANTS Implanted 10/10/2020 08/31/2030 PATIENT HISTORY: The [...] and found to be appropriate with good oriental orthodox of leg length and offset. A intraoperative x ray was taken and confirmed appropriate sizing and positioning of implants along with proper oriental orthodox of leg length and offset. The hip [...] patient was then awoken, transferred to the [facility] and taken to the PACU in stable [...] hours Other: Total Joint Protocol If the pharmacist assistant surgeon is other than a qualified [...] AM EDT Tech [place] [phone] Giacomo Queen 10/11/2023 11:15 AM EDT Office [place] [phone] Basim Barr MD [facility] [place] [address] 10/18/2023 9:00 AM EDT Office Visit Hematology/Oncology at [address] [phone] Cl Hess MD [facility] [place] [address] Yessi Renee APRN [address] [place] [address] DR HEMATOLOGY AND ONCOLOGY [place], [place] [id number] 10/18/2023 9:30 AM EDT Infusion Hematology Oncology at [address] [phone] 10/24/2023 9:30 AM EDT Scheduled View Only Radiation Oncology at [address] [phone] St [facility] Champagne 10/24/2023 10:00 AM EDT Office Visit Radiation Oncology at [address] [phone] Bigg Peters MD [address] [place] [address] DR RADIATION ONCOLOGY [place], [place] [address] 11/01/2023 9:00 AM EDT Office Visit Hematology/Oncology at [address] [phone] Cl Hess MD [facility] [place] [address] Yessi Renee APRN [address] [place] [address] DR HEMATOLOGY AND ONCOLOGY [place], [place] [id number] 11/01/2023 9:30 AM EDT Infusion Hematology Oncology at [address] [phone] 12/24/2023 1:00 PM EDT TH Visit (TeleHealth) Radiation Oncology at [address] [phone] Ping Moore PA [facility] [place] [address] documented as of this encounter Procedures Procedure [...] left hip Arthroplasty Acetabular/Prox Fem Prostc Agrft/Algrft (29579) 10/10/2020 4:43 PM EDT Primary osteoarthritis of left hip POCT GLUCOSE Routine 10/10/2020 3:20 PM EDT TOTAL HIP ARTHROPLASTY - POSTERIOR Routine 10/10/2020 2:13 PM EDT Primary osteoarthritis of left hip IMPLANTABLE DEVICES SCAN 10/10/2020 12:00 AM EDT documented in this encounter Results * POCT Glucose (10/12/2020 12:10 PM EDT) Glucose, POC 129 65 - 199 mg/dL [facility] Comment: Supplemental ranges: <140 mg/dL before meals <180 mg/dL all other times of the day Blood 10/12/2020 12:1 0 PM EDT 10/12/2020 12:10 PM EDT Ismael Wu MD POINT OF CARE TEST ORDERABLES [facility] [place] [address] * POCT Glucose (10/12/2020 7:57 AM EDT) Glucose, POC 147 65 - 199 mg/dL [facility] Comment: Supplemental ranges: <140 mg/dL before meals <180 mg/dL all other times of the day Blood 10/12/2020 7:57 AM EDT 10/12/2020 7:57 AM EDT Ismael Wu MD POINT OF CARE TEST ORDERABLES [facility] [place] [address] * POCT Glucose (10/12/2020 3:22 AM EDT) Glucose, POC 154 65 - 199 mg/dL [facility] Comment: Supplemental ranges: <140 mg/dL before meals <180 mg/dL all other times of the day Blood 10/12/2020 3:22 AM EDT 10/12/2020 3:22 AM EDT Ismael Wu MD POINT OF CARE TEST ORDERABLES [facility] [place] [address] * POCT Glucose (10/11/2020 11:14 PM EDT) Glucose, POC 180 65 - 199 mg/dL [facility] Comment: Supplemental ranges: <140 mg/dL before meals <180 mg/dL all other times of the day Blood 10/11/2020 11:1 4 PM EDT 10/11/2020 11:14 PM EDT Ismael Wu MD POINT OF CARE TEST ORDERABLES [facility] [place] [address] * (ABNORMAL) POCT Glucose (10/11/2020 7:53 PM EDT) Glucose, POC 208(H) 65 - 199 mg/dL [facility] Comment: Supplemental ranges: <140 mg/dL before meals <180 mg/dL all other times of the day Blood 10/11/2020 7:53 PM EDT 10/11/2020 7:53 PM EDT Ismael Wu MD POINT OF CARE TEST ORDERABLES Performing Organization Address City/[facility]/ZIP Co de Phone Number [facility] [place] [address] * POCT Glucose (10/11/2020 4:34 PM EDT) Glucose, POC 153 65 - 199 mg/dL [facility] Comment: Supplemental ranges: <140 mg/dL before meals <180 mg/dL all other times of the day Blood 10/11/2020 4:34 PM EDT 10/11/2020 4:34 PM EDT Ismael Wu MD POINT OF CARE TEST ORDERABLES [facility] [place] [address] * (ABNORMAL) POCT Glucose (10/11/2020 11:47 AM EDT) Glucose, POC 226(H) 65 - 199 mg/dL [facility] Comment: Supplemental ranges: <140 mg/dL before meals <180 mg/dL all other times of the day Blood 10/11/2020 11:4 7 AM EDT 10/11/2020 11:47 AM EDT Ismael Wu MD POINT OF CARE TEST ORDERABLES [facility] [place] [address] * (ABNORMAL) Differential, Automated (10/11/2020 10:43 AM EDT) Neutrophil % 84.5 % [facility] Neutrophil Absolute 11.42(H) 1.70 - 6.10 x10(3)/[facility] Lymph % 7.8 % [facility] Lymphocytes Abs 1.1 0.9 - 3.2 x10(3)/[facility] LABOR[facility]ORY Monocyte % 7.2 % [facility] Monocyte Abs 1.0(H) 0.3 - 0.9 x10(3)/[facility] LABORATORY Eos % 0.0 % [facility] Eosinophils Abs 0.0 0.0 - 0.4 x10(3)/[facility] LABORATORY Basophil % 0.1 % [facility] Baso Absolute 0.0 0.0 - 0.1 x10(3)/[facility] LABORATORY Immature Gran % 0.40 % [facility] Comment: Immature granulocytes(IG's)percentage and absolute count will include metamyelocytes, myelocytes, and promyelocytes. Blood smears from CBCs yielding IG's will be scanned manually for concordance. If this scan disagrees with the automated IG or if promyelocytes are noted, a manual differential will be performed. Immature Gran Absolute 0.06(H) 0.00 - 0.04 x10(3)/ L [facility] Blood 10/11/2020 10:4 3 AM EDT 10/11/2020 11:09 AM EDT Narrative Resulting Agency Comment Spec In Lab Liz Flores Grimes APRN HEMATOLOGY ORDERABL ES [facility] [place] [address] * (ABNORMAL) Hemogram (10/11/2020 10:43 AM EDT) White Blood Cell 13.5(H) 4.0 - 9.5 x10(3)/mc L [facility] Red Blood Cell 3.87(L) 4.58 - 5.54 x10(6)/mc L [facility] Hemoglobin 12.4(L) 13.7 - 16.5 gm/dL [facility] Hematocrit 36.7(L) 40.5 - 48.5 % [facility] Mean Cell Volume 94.8(H) 82.9 - 93.1 fL [facility] Mean Cell Hemoglobin 32.0 27.5 - 32.1 pg [facility] Mean Cell Hemoglobin Concentration 33.8 32.0 - 35.7 gm/dL [facility] Platelet 187 145 - 357 x10(3)/mc L [facility] RDW Standard Deviation 44.4 36.0 - 45.0 [facility] LABORATORY RDW coefficient of variation 13.0 11.4 - 13.8 % [facility] Mean Platelet Volume 10.3 7.6 - 12.9 [facility] LABORATORY NRBC% auto 0.0 % [facility] NRBC Absolute 0.000 0.000 - 0.000 x10(3)/mc L [facility] Blood 10/11/2020 10:4 3 AM EDT 10/11/2020 11:09 AM EDT Narrative Resulting Agency Comment Spec In Lab Liz Grimes APRN HEMATOLOGY ORDERABL ES [facility] [place] [place] [address] * (ABNORMAL) Basic Metabolic Panel (non-fasting) (10/11/2020 10:43 AM EDT) Glucose 231(H) 65 - 199 mg/dL [facility] Comment:Diabetes: >=200 mg/d L plus symptoms Blood Urea Nitrogen 18 10 - 20 mg/dL [facility] Creatinine 1.10 0.80 - 1.50 mg/dL [facility] Sodium 135 135 - 145 mmol/L [facility] Potassium 4.4 3.5 - 5.0 mmol/L [facility] Comment: Please note: ??Patients with WBC >100,000 may have falsely elevated Potassium levels. ??For accurate Potassium quantification in these patients send serum separator tube (gold top) for subsequent determinations. ??Contact the Clinical Chemistry Laboratory if there are any questions. Chloride 100 98 - 107 mmol/L [facility] Carbon Dioxide 25 22 - 31 mmol/L [facility] Anion Gap 10 5 - 15 mmol/L [facility] Calcium 8.6 8.5 - 10.5 mg/dL [facility] Est Glomerular Filtration Rate 67 >=60 mL/min/1. 73 m?? [facility] Comment: This patient? s estimated [...] APRN CHEMISTRY ORDERABLE S Performing Organization Address [facility] Co de Phone Number [facility] [place] [address] * (ABNORMAL) POCT Glucose (10/11/2020 7:36 AM EDT) Glucose, POC 254(H) 65 - 199 mg/dL [facility] Comment: Supplemental ranges: <140 mg/dL before meals <180 mg/dL all other times of the day Blood 10/11/2020 7:36 AM EDT 10/11/2020 7:36 AM EDT Ismael Wu MD POINT OF CARE TEST ORDERABLES Performing Organization Address [facility] Co de Phone Number [facility] [place] [address] * POCT Glucose (10/11/2020 3:36 AM EDT) Glucose, POC 199 65 - 199 mg/dL [facility] Comment: Supplemental ranges: <140 mg/dL before meals <180 mg/dL all other times of the day Blood 10/11/2020 3:36 AM EDT 10/11/2020 3:36 AM EDT Ismael Wu MD POINT OF CARE TEST ORDERABLES Performing Organization Address [facility] Co de Phone Number [facility] [place] [address] * POCT Glucose (10/11/2020 12:02 AM EDT) Glucose, POC 189 65 - 199 mg/dL [facility] Comment: Supplemental ranges: <140 mg/dL before meals <180 mg/dL all other times of the day Blood 10/11/2020 12:0 2 AM EDT 10/11/2020 12:02 AM EDT Ismael Wu MD POINT OF CARE TEST ORDERABLES [facility] [place] [address] * XR Pelvis (Generic) (10/10/2020 9:46 PM [...] who have questions please contact the health primary care physician that requested your imaging first. ? Narrative 10/11/2020 8:33 AM EDT EXAMINATION: XR [...] patients who have questions please contactthe health primary care physician that requested your imaging first. Ismael Wu MD IMG DX ORDERABLES * POCT Glucose (10/10/2020 9:19 PM EDT) Glucose, POC 149 65 - 199 mg/dL [facility] Comment: Supplemental ranges: <140 mg/dL before meals <180 mg/dL all other times of the day Blood 10/10/2020 9:19 PM EDT 10/10/2020 9:19 PM EDT Ismael Wu MD POINT OF CARE TEST ORDERABLES [facility] [place] [address] * XR Hip 1 view Left (10/10/2020 [...] who have questions please contact the health primary care physician that requested your imaging first. ? Narrative 10/11/2020 8:31 AM EDT EXAMINATION: XR [...] patients who have questions please contactthe health primary care physician that requested your imaging first. Electronically signed by: Claudio Ward MD[facility]([phone]), at 10/11/2020 8:31 AM Ismael Wu MD [...] who have questions please contact the health primary care physician that requested your imaging first. ? Narrative 10/11/2020 8:30 AM EDT EXAMINATION: XR [...] patients who have questions please contactthe health primary care physician that requested your imaging first. Ismael Wu MD IMG DX ORDERABLES * [...] who have questions please contact the health primary care physician that requested your imaging first. ? Narrative 10/11/2020 8:29 AM EDT EXAMINATION: XR [...] patients who have questions please contactthe health primary care physician that requested your imaging first. Ismael Wu MD IMG DX ORDERABLES * POCT Glucose (10/10/2020 3:20 PM EDT) Glucose, POC 119 65 - 199 mg/dL [facility] Comment: Supplemental ranges: <140 mg/dL before meals <180 mg/dL all other times of the day Blood 10/10/2020 3:20 PM EDT 10/10/2020 3:20 PM EDT Ismael Wu MD POINT OF CARE TEST ORDERABLES [facility] [place] [address] * SCAN DOC: IMPLANTABLE DEVICES (10/10/2020 12:00 [...] mention of complication, not stated as uncontrolled s/p L JIMI, posterior, Dr. Wu, 10/10/20 Hip joint replacement by other means Postoperative urinary retention documented in this encounter Administered Medications Inactive [...] Given 10/11/2020 5:53 PM EDT 40 mg carvediloL (Coreg) tablet 12.5 mg 12.5 mg, [...] Given 10/10/2020 2:53 PM EDT 400 mg clopidogreL (Plavix) tablet 75 mg 75 [...] Given 10/11/2020 11:19 PM EDT 2 Units metFORMIN (Glucophage) tablet 1,000 mg 1,000 mg, [...] Qian Santiago RN)1313 (Given - Provider: Savanah Guadalupe RN)2140 (Given - Provider: Boone Gonzalez, AYE) 0633 (Given - Provider: Boone Gonzalez RN) amLODIPine (Norvasc) tablet 10 mg 10 [...] Routine 0854 (Given - Provider: Linsey Zavala LPN)175 (Given - Provider: Linsey Zavala LPN) 0828 (Given - Provider: Savanah Guadalupe, AYE) ceFAZolin (Ancef) 2 g in dextrose 5% [...] 2208 (New Bag - Provider: Judith Huerta RN)223 (Stopped - Provider: Junaid Diallo, AYE) 0608 (New Bag - Provider: Qian Santiago RN)0638 (Stopped - Provider: Savanah Guadalupe, AYE)1312 (New Bag - Provider: Savanah Guadalupe, AYE)1342 (Stopped - Provider: Savanah Guadalupe, AYE) celecoxib (CeleBREX) capsule 200 mg 200 mg, Oral, 2 TIMES DAILY, First dose on Sat10/11/20 at 0900, Until Discontinued, Routine 0854 (Given - Provider: Linsey Zavala LPN)2005 (Given - Provider: Boone Gonzalez RN) 0828 (Given - Provider: Savanah Guadalupe RN) [...] on Sat10/12/20 at 0900, Until Discontinued, Routine 08 (Given - Provider: Savanah Guadalupe RN) [id number] ketamine 10 mg/mL or placebo injection 57 [...] be ordered by Dr. Rodrick Chisholm. Acknowledged 1729 (Given - Provider: Milton Smalls MD) glimepiride (Amaryl) tablet 1 mg 1 mg, Oral, EVERY MORNING BEFORE BREAKFAST, First dose on Sat10/11/20 at 0730, Until Discontinued, Consider holding dose if patient is not eating., Routine 0743 (Given - Provider: Savanah Guadalupe RN) 0633 (Given - Provider: Boone Gonzalez RN) [...] - Provider: Junaid Diallo RN - Comment: [phone] (Given - Provider: Qian Santiago RN)0858 (Given [...] hours., Routine 1202 (Given - Provider: Savanah Guadalupe, AYE - Comment: 2 units already given before order sliding scale changed, additional 3 units given)1636 (Given - Provider: Linsey Zavala LPN)2007 (Given - Provider: Boone Gonzalez RN)2319 (Given - Provider: Boone Gonzalez RN) 0418 (Given - Provider: Boone Gonzalez RN)0827 [...] 0828 (Given - Provider: Savanah Guadalupe RN) pantoprazole EC (Protonix) tablet 20 mg [...] 08 (Given - Provider: Savanah Guadalupe RN) senna-docusate (Pericolace) 8.6-50 mg per tablet 2 tablet 2 tablet, Oral, 2 TIMES DAILY, First dose on Sat10/11/20 at 0900, Until Discontinued, Routine 0900 (Not Given - Provider: Linsey Zavala LPN - Reason: Patient/family refused)2006 (Given - Provider: Boone Gonzalez RN) 08 (Given - Provider: Savanah Guadalupe RN) sodium chloride 0.9 % [...] Savanah Guadalupe RN)1303 (Stopped - Provider: Savanah Guadalupe RN) tamsulosin (Flomax) capsule 0.4 mg 0.4 mg, Oral, DAILY, First dose on Sat10/11/20 at 1200, Until Discontinued, DO NOT CRUSH OR OPEN, Routine 1154 (Given - Provider: Savanah Guadalupe RN) 0829 (Given - Provider: Savanah Guadalupe RN) Continuous Medication Order 10/10/2020 10/11/2020 10/12/2020 [id number] ketamine or placebo 250 mg in sodium chloride 0.9% 250 mL infusion (CANCELED)(Linked Group 4) 5 mcg/kg/min ? 114.8 kg (34.44 mL/hr, rounded to 34.4 mL/hr), Intravenous, CONTINUOUS, Starting on Sat10/10/20 at 0700, Until Sat10/12/20 at 0611, 0.5 mg/kg bolus followed by a 5 mcg/kg/min continuous infusion. total dose (bolus plus continuous infusion) should not exceed 500 mg 174 (New Bag - Provider: Vidal Watson MD)2024 (Stopped - Provider: Delmi Garcia CRNA) sodium chloride 0.9% infusion 1,000 mL, at 100 mL/hr, Intravenous, CONTINUOUS, Starting on Sat10/10/20 at 2200, Until Sat10/12/20 at 1518, Recovery (Recovery-Hospital Unit) 2133 (New Bag - Provider: Chen Arrieta RN) 1002 (Stopped - Provider: Savanah Guadalupe RN - Comment: Pt IV symptomatic)1813 (New Bag - Provider: Savanah Guadalupe RN) 0428 (New Bag - Provider: Boone Gonzalez RN)0885 (Stopped - Provider: Savanah Guadalupe RN) PRN Medication Order 10/10/2020 10/11/2020 10/12/2020 bisacodyL [...] (CANCELED) ONCE PRN, Starting on Sat10/10/20 at 204, Until Sat10/12/20 at 1518, Intra-Operative (Intra-Procedure), Routine [...] Unit), Routine Linked Groups Order Group 1: [id number] ketamine 10 mg/mL or placebo injection 57 [...] by Dr. Rodrick Chisholm. Acknowledged And INV [id number] patient's specific med #2 1 each () [...] mg/dL in 2 hours., Routine Group 4: [id number] ketamine or placebo 250 mg in sodium chloride 0.9% 250 mL infusion (CANCELED)Jump to med 5 mcg/kg/min ? 114.8 kg (34.44 mL/hr, rounded to 34.4 mL/hr), Intravenous, CONTINUOUS, Starting on Sat10/10/20 at 0700, Until Sat10/12/20 at 0611, 0.5 mg/kg bolus followed by a 5 mcg/kg/min continuous infusion. total dose (bolus plus continuous infusion) should not exceed 500 mg And INV [id number] patient's specific infusion med #2 1 each [...] Unit) documented in this encounter Care Teams Policy Writer Typist Relationship Specialty Start Date End Date Alo Carey DO [address] [place] [address] [place] [id number] PCP - General Internal Medicine 08/31/20 07/03/23 documented as of this encounter
--- OUTSIDE RECORDS SUMMARY | 2023-10-06 00:45 | XMS_ITS | Encounter Summary ---
Author Organization Formerly [facility] Address [facility] [place] [address] Care Team Providers Care Paint Stock Clerk Name Role Phone Alo Carey DO Primary Care Provider [phone] Reason for Visit * Reason Comments Establish Care BILATERAL HIP PAIN// DISCUSSION OF JIMI * Consultation (Routine) - Closed Specialty Diagnoses / Procedures Referred By Marques livingston Referred To Contact Orthopaedics Diagnoses Pain in unspecified hip BILATERAL HIP PAIN Alo Carey DO [address] [place] [address] [place] [address] [facility] [address] [place] [phone] Referral ID Status Reason Start Date Expiration Date V isits Requested Visits Authorized [id number] Closed Consult, [facility] PCP Updated and/or Approved 08/18/2020 08/18/2021 6 6 Encounter Details Date Type Department Care Team (Latest Contact Info) Description 09/15/2020 9:00 AM EDT [place] [address] Ismael Wu MD [facility] [place] [address] Left leg pain (Primary Dx); Primary osteoarthritis of both hips; Primary osteoarthritis of left hip Social History [...] Sign Reading Time Taken Comments Blood Pressure 136/74 09/15/2020 8:55 AM EDT Pulse 71 09/15/2020 8:55 AM EDT Temperature - - Respiratory Rate - - Oxygen Saturation - - Inhaled Oxygen Concentration - - Weight 111.6 kg (246 lb) 09/15/2020 8:55 AM EDT reported Height 180.3 cm (5' 11) 09/15/2020 8:55 AM EDT reported Body Mass Index 34.31 09/15/2020 8:55 AM EDT documented in this encounter Progress Notes * Ismael Wu MD - 09/15/2020 9:00 AM EDT Images from the original note were not included. Department of Orthopaedics Division of Adult Joint Reconstructive Surgery Subjective: RE: Wero Sadler DIAGNOSIS: Osteoarthritis (M19.10) , LEFT hip > RIGHT hip ARTHROPLASTY PROCEDURES: 1. RIGHT TKA, OSH Chief Complaint Patient presents with ??? Establish Care BILATERAL HIP PAIN//DISCUSSION OF JIMI HISTORY OF PRESENT ILLNESS: Wero Sadler who is a 70 y.o. male who has a long history of BILATERAL hip pain (Left > Right) that has become progressively worse as of the past month(s). The patient localizes the pain to in the groin area, in the buttock area and radiating down to the knee. It is a dull, aching and sharp pain depending on their activities, today's pain score: 7/10 onVAS. Has difficulty with shoes and socks, and other functional activities such as stairs, prolongedstanding and walking; walks with a limp. Overall, the problem has been getting progressively worse and is now significantly impacting quality of life. The patient has a past medical history significant for cardiovascular and peripheral vascular disease. The patient has had a 3V CABG as well as a femoral- tibial bypass graft and a carotid-subclavian bypass graft (bilateral). He's a former smoker (quit 1992). His passed within the last year or so. He is here today with his brother. Other pertinent details of the history include: Anti-inflammatory medication history: Can not take, CV disease Home exercise/activities: none Ambulatory capacity: 1 to 3 blocks Assistive devices: using a cane for long distances Stair climbing: Difficult Physical therapy: No Weight gain/loss: has been stable Corticosteroid injections and/or viscosupplementation: Not for hip PAST MEDICAL HISTORY: There is no problem list on file for this patient. PAST SURGICAL HISTORY: Past Surgical History: Procedure Laterality Date ??? CARDIAC SURGERY 12/03/2018 triple bypass ??? CAROTID-SUBCLAVIAN BYPASS GRAFT Bilateral 2017, 2018 ??? FEMORAL-TIBIAL BYPASS GRAFT Left 12/2017 ALLERGIES: Allergies Allergen Reactions ??? Other [Unclassified Drug] Had reaction to a dye used during vascular procedure at [facility] in [place] FAMILY HISTORY: Family history was reviewed with patient and is as listed below. Family History Problem Relation Age of Onset ??? Diabetes Father SOCIAL HISTORY: The patient lives in [place]. He had lived for many years in [place]. His within the last year. He is here today with his brother. Social History Tobacco Use ??? Smoking status: Former Smoker Types: Cigarettes Quit date: 1992 Years since quittin.5 ??? Smokeless tobacco: Never Used Substance Use Topics ??? Alcohol use: Yes ??? Drug use: Not Currently Types: Marijuana REVIEW OF SYSTEMS: A comprehensive 12-point review of systems was performed and reviewed with patient and is as listedbelow. All systems not mentioned below or in HPI were reviewed and are negative. REVIEW OF SYSTEMS: A detailed review of systems was performed and is as reviewed with the patient and indicated in thechart. Review of Systems Constitutional: Negative. HENT: Negative. Eyes: Negative. Respiratory: Negative. Negative for shortness of breath. Cardiovascular: Negative for chest pain. Gastrointestinal: Negative. Genitourinary: Negative. Musculoskeletal: Positive for joint pain. Skin: Negative. Neurological: Negative. Endo/Heme/Allergies: Negative. Psychiatric/Behavioral: Negative. All other systems reviewed and are negative. Patient denies fevers, chills, night sweats, nausea, or vomiting. QUESTIONNAIRE RESPONSES: General Health, Prior Treatments, PreExisting Condition, Health Habits, About You 09/15/2020 PROMIS-10 General Health Good PROMIS-10 Quality of Life Good PROMIS-10 Physical Health Very Good PROMIS-10 Mental Health Very Good PROMIS-10 Social Activity Good PROMIS-10 Everyday Activities Moderately PROMIS-10 Pain 5 PROMIS-10 Fatigue Moderate PROMIS-10 Social Roles Fair PROMIS-10 Anxious or Depressed Never PROMIS PHYSICAL SCORE (range 16-68) 42.3 PROMIS MENTAL SCORE (range 21-68) 50.8 HOOS JR Scores 49.86 JIMI Grade 3 Alzheimers or dementia No Cirrohosis or liver disease No HIV/AIDS No Pain in more than one joint in legs Yes Back or neck pain No Heart attack Yes Heart failure No Unclog/bypass leg arteries Yes Stroke, blood clot, TIA No Asthma No Emphysema, chronic bronchities, or COPD No Stomach ulcers/peptic ulcer disease No Diabetes Yes Diabetes caused problems with kidneys No Poor kidney function No Rheumatic condtions No Cancer Yes Cancer spread No Leukemia or polycythemia vera No Lymphoma No Weight (lbs) 245 Height (feet) 5 feet Height (Inches) 11 BMI 34.16 (Obese) Ever used tobacco products Yes Tobacco frequency Never WHO - Tobacco Advice 0 (You are at low risk of health and other problems from your current pattern of use.) Ever used alcoholic beverages Yes Alcohol frequency Weekly WHO - Alcohol Advice 4 (You are at risk of health and other problems from your current pattern of alcohol use.) Live Alone No Marital situation Schooling Some college or 2 - year degree Combined Household Income $15,000 to less than $20,000 # People Supported 2 English, , No, not English// Race White Health Literacy Not at all Currently working No Not working because: Retired Orth[facility] Response 09/15/2020 HOOS JR Scores 49.86 Spine [facility] Response 09/15/2020 HOOS JR Scores 49.86 Objective: PHYSICAL EXAMINATION: Body mass index is 34.31 kg/m??. On physical examination, the patient is well developed and well nourished in no acute distress, pleasant and cooperative throughout the exam. Alert and oriented to person, place, and time with a normal affect. Respiratory effort is normal, with no dyspnea on exertion. Walks with a Trendelenberg gait. Hip range of motion Flexion Extension IR ER Abduction Adduction right 100 0 5 30 40 20 left 100 0 5 30 40 20 Hip Right Left [facility] positive positive Passive Straight Leg Raise negative negative Abductor Strength 5/5 5/5 Roselia Test negative negative Tenderness over greater trochanter No No FADIR painful painful CHON painless painless Trendelenburg Test Abnormal - Pelvis not level Abnormal - Pelvis not level Longer leg: equal Limb length discrepancy: 0cm Has intact sensation to light touch throughout the lower extremities, and 5/5 strength in bilaterallower extremity muscle groups except as noted above. Has no skin lesions or rashes, and the extremities show no signs of peripheral edemaand are warm and well perfused with brisk capillary refill and palpable distal pulses. IMAGING: I personally reviewed and interpreted the radiographs obtained on 09/15/20. X-RAYS: AP pelvis and AP and lateral views of the BILATERAL hip(s) demonstrate severe joint space narrowing with femoral head neck osteophytes, acetabular osteophytes and subchondral sclerosis. REVIEW OF OUTSIDE RECORDS: None Assessment & Plan: IMPRESSION: Wero Sadler who is a 70 y.o. male who has severe osteoarthritis of his BILATERAL hips, but the LEFT is slightly more symptomatic than the RIGHT. We discussed both the natural history and the treatment options with the patient at length today, including both non-operative and operative measures. We reviewed the multiple treatment options available to him for this condition and the hurtful but non-harmful nature of arthritis. Both operative and nonoperative options were discussed as well as the pure elective nature of each. I reviewed the concept of the arthritis ladder with its step-batista approach, rising in invasiveness based on either previous response or symptom severity/impact on lifestyle. Considering the apparent impact on his lifestyle and having explored non- operative treatment options, I indicated that in my opinion total hip arthroplasty would be a reasonable option to attempt to restore a more normal, pain-free level of function. I discussed how the procedure is performed and all of their questions were answered. I discussed the risks of the procedure and the potentially devastating consequences of complications. Mr. Sadler expressed a desire to pursue total hip arthroplasty. The nature and purpose of the total [...] important for this specific patient: These include infection wound healing problems and medical complications such as heart attack, stroke, and peripheral vascular disease exacerbation. The patient was informed that the success [...] set this up as expeditiously as possible. He will seek out the needed medical clearance and undergo the needed testing to ensure medical suitability for the proposed surgical intervention. I will plan to meet him again in the weeks prior to an anticipated potential surgical date, to review his medical consult and testing, answer any and all questions, and formulate our definitive decisions regarding proceeding with surgery (or not) at that time only. Potential barriers to total joint arthroplasty: -BMI > 40: No (Body mass index is 34.31 kg/m??.) -Active Tobacco use: No -Diabetes with hemoglobin A1C > 7.5: Unknown -Other comorbid conditions: H/o cardiovascular and peripheral vascular disease PLAN: LEFT JIMI, posterior approach, DePuy Actis / [place] Thorough documentation of vascular status pre-operatively in light of history of PVD. Ismael Wu MD documented in this encounter Plan of Treatment Upcoming Encounters Date Type Department Care Team (Late st Contact Info) Description 10/11/2023 10:00 AM EDT Tech [place] [phone] Giacomo Queen 10/11/2023 11:15 AM EDT Office [place] [phone] Basim Barr MD [facility] [place] [address] 10/18/2023 9:00 AM EDT Office Visit Hematology/Oncology at [address] [phone] Cl Hess MD [facility] [place] [address] Yessi Renee INNER TUBE INSERTER [address] [place] [address] DR HEMATOLOGY AND ONCOLOGY [place], [place] [id number] 10/18/2023 9:30 AM EDT Infusion Hematology Oncology at [address] [phone] 10/24/2023 9:30 AM EDT Scheduled View Only Radiation Oncology at [address] [phone] St La Nena Champagne 10/24/2023 10:00 AM EDT Office Visit Radiation Oncology at [address] [phone] Bigg Peters MD [address] [place] [address] DR RADIATION ONCOLOGY [place], [place] [id number] 11/01/2023 9:00 AM EDT Office Visit Hematology/Oncology at [address] [phone] Cl Hess MD [facility] [place] [address] Yessi Renee APRN [address] [place] [address] DR HEMATOLOGY AND ONCOLOGY [place], [place] [id number] 11/01/2023 9:30 AM EDT Infusion Hematology Oncology at [address] [phone] 12/24/2023 1:00 PM EDT TH Visit (TeleHealth) Radiation Oncology at [address] [phone] Ping Moore PA [facility] DR HEMATOLOGY [place] [address] documented as of this encounter Results * XR Pelvis and [...] who have questions please contact the health direct care counselor that requested your imaging first. ? Electronically signed by: Claudio Ward MD, [facility] ([phone]), at 11/17/2020 12:27 PM Narrative 11/17/2020 12:27 PM EDT EXAMINATION: XR [...] patients who have questions please contactthe health direct care counselor that requested your imaging first. Electronically signed by: Claudio Ward MD, [facility]([phone]), at 11/17/2020 12:27 PM Ismael Wu MD IMG DX ORDERABLES * APTT (10/06/2020 2:59 PM EDT) [facility] Signature Partial Thromboplastin Time 32 25 - 37 [...] MD HEMATOLOGY ORDERABL ES Performing Organization Address [facility] de Phone Number [facility] [place] [address] * Prothrombin Time (10/06/2020 2:59 PM EDT) [...] MD HEMATOLOGY ORDERABL ES Performing Organization Address [facility] de Phone Number [facility] [place] [address] * Basic Metabolic Panel (non-fasting) (10/06/2020 2:59 PM EDT) Glucose 195 65 - 199 mg/dL [facility] [...] in these patients send serum separator tube (page hospital top) for subsequent determinations. ??Contact the Clinical [...] CHEMISTRY ORDERABLE S [facility] [place] [address] * EKG 12 Lead (10/06/2020 2:46 PM EDT) Ventricular rate 71 BPM MUSE SYSTEM Atrial Rate 71 BPM MUSE SYSTEM P-R Interval 176 ms MUSE SYSTEM QRS Duration 98 ms MUSE SYSTEM Q-T Interval 402 ms MUSE SYSTEM QTC Calculated (Bezet) 436 ms MUSE SYSTEM Calculated P Bob White 62 degrees MUSE SYSTEM Calculated R Bob White -11 degrees MUSE SYSTEM Calculated T Bob White 37 degrees MUSE SYSTEM INTERPRETATION Normal sinus rhythm Normal ECG No previous ECGs available Confirmed by Janki Allred MD ([id number]) on 10/06/2020 3:29:14 PM MUSE SYSTEM 10/06/2020 2:46 PM EDT 10/06/2020 3:29 PM EDT Ismael Wu MD ECG ORDERABLES MUSE SYSTEM * XR Pelvis and Hip 2 Views Bilateral (09/15/2020 10:13 AM EDT) Anatomical Region Laterality Modality Pelvis, Hip Bilateral Digital Radiogra phy Impressions 09/15/2020 11:17 AM EDT Severe osteoarthritis of the left hip. Moderate osteoarthritis of the right hip. Thank you for letting us participate in the care of this patient. ??If you are a health care provider and have any questions regarding this report, please contact the number below. ??For patients who have questions please contact the health direct care counselor that requested your imaging first. ? Electronically signed by: Shelly Richards MD, [facility] ([phone]), at 09/15/2020 11:17 AM Narrative 09/15/2020 11:17 AM EDT EXAMINATION: XR PELVIS AND HIP 2 VIEWS BILATERAL CLINICAL HISTORY: pre-op planning. TECHNIQUE: 3 views of the pelvis and hips: AP pelvis, AP and lateral bilateral hips COMPARISON: 08/18/2020 FINDINGS: No acute fracture or dislocation is noted. Degenerative changes bilateral hips, left greater than right, characterized by joint space narrowing, subchondral sclerosis and marginal osteophytes. Degenerative and possibly postsurgical changes lower lumbar spine. Degenerative changes symphysis pubis. Sacroiliac joints not well visualized. Vascular calcification. Soft tissues are unremarkable. Procedure Note Shelly Richards MD - 09/15/2020 EXAMINATION: XR PELVIS AND HIP 2 VIEWS BILATERAL CLINICAL HISTORY: pre-op planning. TECHNIQUE: 3 views of the pelvis and hips: AP pelvis, AP and lateral bilateral hips COMPARISON: 08/18/2020 FINDINGS: No acute fracture or dislocation is noted. Degenerative changes bilateralhips, left greater than right, characterized by joint space narrowing,subchondral sclerosis and marginal osteophytes. Degenerative and possiblypostsurgical changes lower lumbar spine. Degenerative changes symphysis pubis.Sacroiliac joints not well visualized. Vascular calcification. Soft tissues are unremarkable. IMPRESSION Severe osteoarthritis of the left hip. Moderate osteoarthritis of theright hip. Thank you for letting us participate in the care of this patient. If youare a health care provider and have any questions regarding this report,please contact the number below. For patients who have questions please contactthe health direct care counselor that requested your imaging first. Electronically signed by: Shelly Richards MD, [facility] ([phone]), at 09/15/2020 11:17 AM Ismael Wu MD IMG DX ORDERABLES documented in this encounter Visit Diagnoses Diagnosis Left leg pain- Primary Pain in limb Primary osteoarthritis of both hips Primary localized osteoarthrosis, pelvic region and thigh Primary osteoarthritis of left hip Primary localized osteoarthrosis, pelvic region and thigh Primary osteoarthritis of both hips Primary localized osteoarthrosis, pelvic region and thigh Primary osteoarthritis of left hip Primary localized osteoarthrosis, pelvic region and thigh Left leg pain Pain in limb documented in this encounter Care Teams Paint Stock Clerk Relationship Specialty Start Date End Date Alo Carey DO [address] [place] [address] [place] [address] PCP - General Internal Medicine 08/31/20 07/03/23 documented as of this encounter
--- OUTSIDE RECORDS SUMMARY | 2023-10-06 00:45 | XMS_ITS | Encounter Summary ---
Author Organization [facility] Address [address] [place] [address] Care Team Providers Care Two Needle Machine Operator Name Role Phone Unavailable Primary Care Provider Unavailabl e Reason for Visit * (Routine/Next Available) - Receiving Office to Obtain Authorization Specialty Diagnoses / Procedures Referred By Contermelinda t Referred To Contact Procedures MR OUTSIDE IMAGES NEURO Unknown, Provider, Referral ID Status Reason Start Date Expiration Date Visits Requested Visits Authorized [id number] Receiving Office to Obtain Authorization 1 1 1 Encounter Details Date Type Department Care Team (Latest Contact Info) Description 11/26/2019 - 11/26/2019 0:04 EDT Hospital Encounter [facility] Secondary Reads [place] Discharge Disposition: Home or Self Care Social History Tobacco Use Types Packs/Day Years Used Date Smoking Tobacco: Never Assessed Sex and Gender Information Value Date Recorded Sex Assigned at Not on file Gender Identity Male 01/24/2021 12:25 EST Sexual Orientation Not on file documented as of this encounter Discharge Disposition Disposition Code Departure Means Destination Home or Self Care documented in this encounter Plan of Treatment Not on file documented as of this encounter Procedures Procedure Name Priority Date/Time Associated Diagnosis Comments MR OUTSIDE IMAGES NEURO Routine 12/20/2020 9:13 EDT documented in this encounter Results * MR OUTSIDE IMAGES NEURO (12/20/2020 9:13 EDT) Narrative 12/20/2020 9:13 EDT This is a non-reportable exam. Provider Unknown MD STAUFFER OTHER IMAGING OR DERABLES documented in this encounter Visit Diagnoses Not on filedocumented in this encounter
--- OUTSIDE RECORDS SUMMARY | 2023-10-06 00:45 | XMS_ITS | Encounter Summary ---
Author Organization [facility] Address [address] [place] [address] Care Team Providers Care Lab Rep Name Role Phone Unknown, Provider Primary Care Provider [phone] Encounter Details Date Type Department Care Team (Late st Contact Info) Description 09/25/2022 Lab Requisition [facility] Pathology & Laboratory Medicine - [address] [address] Outr Resulting Lab, Provider Social History Tobacco Use Types Packs/Day Years Used Date Smoking Tobacco: Never Assessed Sex and Gender Information Value Date Recorded Sex Assigned at Not on file Gender Identity Male 01/24/2021 12:25 EST Sexual Orientation Not on file documented as of this encounter Plan of Treatment Not on file documented as of this encounter Procedures Procedure Name Priority Date/Time Associated Diagnosis Comments FECAL BACTERIAL PATHOGENS BY PCR Routine 09/25/2022 10:28 EDT documented in this encounter Results * FECAL BACTERIAL PATHOGENS BY PCR (09/25/2022 10:28 EDT) Salmonella PCR Negative Negative 09/26/2022 10:47 EDT [facility] Shigella/Enteroin vasive E. coli Negative Negative 09/26/2022 10:47 EDT [facility] HN LAB CAMPYLOBACTER PCR Negative Negative 09/26/2022 10:47 EDT [facility] Shiga Toxin PCR Negative Negative 10:47 EDT [facility] Feces SPECIMEN FROM RECTUM / Unknown 09/25/2022 10:28 EDT 09/25/2022 22:21 EDT Provider Outr Resulting Lab MICROBIOLOGY - GENERAL ORDERABLES Performing Organization Address City/State/[facility] Co de Phone Number [facility] [address] [place] [address] documented in this encounter Visit Diagnoses Not on filedocumented in this encounter Care Teams Lab Rep Relationship Specialty Start Date End Date Unknown, Provider, PCP - General 03/04/20 documented as of this encounter
--- OUTSIDE RECORDS SUMMARY | 2023-10-06 00:45 | XMS_ITS | Encounter Summary ---
Author Organization [facility] Address [address] [place] [address] Care Team Providers Care Shipmaster Name Role Phone Unknown, Provider Primary Care Provider [phone] Encounter Details Date Type Department Care Team (Late st Contact Info) Description 06/21/2021 Lab Requisition [facility] Pathology & Laboratory Medicine - [address] [address] Outr Resulting Lab, Provider Social History Tobacco [...] Procedure Name Priority Date/Time Associated Diagnosis Comments TESTOSTERONE Routine 06/21/2021 13:16 EDT documented in this encounter Results * (ABNORMAL) TESTOSTERONE (06/21/2021 13:16 EDT) Testosterone 16(L) 229 - 902 ng/dL 06/21/2021 22:58 EDT [facility] Blood VENOUS BLOOD / Unknown 06/21/2021 13:16 EDT 06/21/2021 21:37 EDT Narrative [facility] - 06/21/2021 22:58 EDT The results of this assay can be falsely elevated due to the consumption of Biotin. Provider Outr Resulting Lab CHEMISTRY & BLOOD GAS ORDERABLES [facility] [address] [place] [address] documented in this encounter Visit Diagnoses Not on filedocumented in this encounter Care Teams Shipmaster Relationship Specialty Start Date End Date Unknown, Provider, PCP - General 03/04/20 documented as of this encounter
--- OUTSIDE RECORDS SUMMARY | 2023-10-06 00:45 | XMS_ITS | Referral Summary ---
Author Organization [facility] Address [address] [place] [address] Care Team Providers Care Marble Chip Terrazzo Worker Name Role Phone Unknown, Provider Primary Care Provider [phone] Allergies Active Allergy Reactions Criticality Noted Date Comments Cyclobenzaprine 11/29/2021 Medications Medication Sig Dispensed Refills Start Date End Date Status timolol (TIMOPTIC) 0.25 % ophthalmic solutionIndications:V ision loss of right eye Place 1 Drop into the right eye 2 times daily. 10 mL 02/17/2021 Active aspirin (ASPIR-81 ORAL) Take by mouth. Active atorvastatin (LIPITOR) 80 mg tablet Take 80 mg by mouth daily. Active carvediloL (COREG) 25 mg tablet Take 25 mg by mouth 2 times daily with breakfast and dinner. Active erythromycin (ROMYCIN) 5 mg/gram (0.5 %) ophthalmic ointment 1 cm as needed. Active folic acid (FOLVITE) 1 mg tablet Take 1 mg by mouth daily. Active amLODIPine (NORVASC) 2.5 mg tablet Take 2.5 mg by mouth daily. Active glimepiride (AMARYL) 2 mg tablet Take 2 mg by mouth every morning. Active isosorbide MONOnitrate (IMDUR) 30 mg CR tablet Take 30 mg by mouth every morning. Active omega 2-tcr-vbn-fish oil (FISH OIL) 100-160-1,000 mg capsule Take by mouth. Active lisinopriL (PRINIVIL) 40 mg tablet Take 40 mg by mouth daily. Active metFORMIN (GLUCOPHAGE) 500 mg tablet Take 500 mg by mouth 2 times daily with breakfast and dinner. Active TAMSulosin (FLOMAX) 0.4 mg capsule Take 0.4 mg by mouth daily. Active naproxen sodium (ANAPROX) 220 mg tablet Take 220 mg by mouth 2 times daily with breakfast and dinner. Active UNKNOWN TO PATIENT Injection every 6 months Active Active Problems No known active problems Social History Tobacco Use Types Packs/Day Years Used Date Smoking Tobacco: Never Assessed Sex and Gender Information Value Date Recorded Sex Assigned at Not on file Gender Identity Male 01/24/2021 12:25 EST Sexual Orientation Not on file Plan of Treatment Not on file Care Teams Marble Chip Terrazzo Worker Relationship Specialty Start Date End Date Unknown, Provider, PCP - General 03/04/20
--- OUTSIDE RECORDS SUMMARY | 2023-10-06 00:45 | XMS_ITS | Encounter Summary ---
Author Organization [facility] Address [address] [place] [address] Care Team Providers Care Fork Truck Driver Name Role Phone Unknown, Provider Primary Care Provider Encounter Details Date Type Department Care Team (Late st Contact Info) Description 08/01/2022 Lab Requisition [facility] Pathology & Laboratory Medicine - [facility] [address] [place] [address] Alo Carey, DO [address] [place], [place] [id number] Pleural effusion, not elsewhere classified Social History Tobacco Use Types Packs/Day Years Used Date Smoking Tobacco: Never Assessed Sex and Gender Information Value Date Recorded Sex Assigned at Not on file Gender Identity Male 01/24/2021 12:25 EST Sexual Orientation Not on file documented as of this encounter Plan of Treatment Not on file documented as of this encounter Procedures Procedure Name Priority Date/Time Associated Diagnosis Comments NON MANAGER DECISION SUPPORT/FNA CYTOLOGY Today 08/01/2022 14:31 EDT documented in this encounter Results * NON MANAGER DECISION SUPPORT/FNA CYTOLOGY (08/01/2022 14:31 EDT) Note to Patient The following pathology results have been interpreted by your pathologist and may be available to you before your health provider has had the opportunity to review them. Please allow time for your provider to receive these results and explore management options, if applicable. 08/02/2022 14:50 [facility] Final Diagnosis A. PLEURAL FLUID, CYTOLOGIC EVALUATION: - Negative for malignant cells. - Rare reactive mesothelial cells and mixed inflammation with increased eosinophils present. See comment. 08/02/2022 14:50 [facility] Diagnosis Comment The cytologic features are suggestive of an eosinophilic effusion. Eosinophilic effusions are often secondary to air or blood into pleural space and may be seen in association with pneumothorax, hemothorax or repeated thoracentesis. Less common causes include drug reactions, parasitic infections, pulmonary infarction, and Churg-lizeth syndrome. Approximately 1/3 of cases are idiopathic. Please correlate findings with clinical and radiographic data including fluid cell counts. 08/02/2022 14:50 [facility] Attestation By the signature below, the attending physician certifies that they have personally conducted a gross and/or microscopic examination of the described specimens and rendered or confirmed the above diagnosis. 08/02/2022 14:50 [facility] at 1450 Clinical History Pleural effusion; J90 08/02/2022 14:50 [facility] Gross Description A. 700cc's of opaque stacey fluid (Heparin added) were received and processed by selective cellular enhancement technique. 08/02/2022 14:50 [facility] Performing Lab [facility] 08/02/2022 14:50 [facility] Scanned Images 08/02/2022 14:50 [facility] ZZUNK PLEURAL / Unknown 08/01/2022 14:31 EDT 08/02/2022 6:48 EDT Alo Carey DO PATHOLOGY ORDERA BLES [facility] [address] [place] [address] documented in this encounter Visit Diagnoses Diagnosis Pleural effusion, not elsewhere classified documented in this encounter Care Teams Fork Truck Driver Relationship Specialty Start Date End Date Unknown, Provider, PCP - General 03/04/20 documented as of this encounter
--- OUTSIDE RECORDS SUMMARY | 2023-10-06 00:45 | XMS_ITS | Encounter Summary ---
Author Organization [facility] [place] [address] Care Team Providers Care Newswriter Name Role Phone Unavailable Primary Care Provider Unavailabl e Encounter Details Date Type Department Care Team (Late st Contact Info) Description 11/26/2019 Ancillary Procedure [place] [phone] Alo Carey, [address] [place] [phone] Social History Tobacco Use Types Packs/Day Years [...] AM EDT Tech [place] [phone] Giacomo Queen 10/11/2023 11:15 AM EDT Office [place] [phone] Basim Barr MD [facility] [place] [address] 10/18/2023 9:00 AM EDT Office Visit Hematology/Oncology at [address] [phone] Cl Hess MD [facility] [address] Yessi Renee, [address] HEMATOLOGY AND ONCOLOGY [place], [place] [address] [phone] 10/18/2023 9:30 AM EDT Infusion Hematology Oncology at [address] [phone] 10/24/2023 9:30 AM EDT Scheduled View Only Radiation Oncology at [address] [phone] St La Nena Champagne 10/24/2023 10:00 AM EDT Office Visit Radiation Oncology at [address] [phone] Bigg Peters MD [address] [place] [address] DR RADIATION ONCOLOGY [place], [place] [phone] 11/01/2023 9:00 AM EDT Office Visit Hematology/Oncology at [address] [phone] Cl Hess MD [facility] [place] [address] Yessi Renee, [address] HEMATOLOGY AND ONCOLOGY [place], [place] [address] 11/01/2023 9:30 AM EDT Infusion Hematology Oncology at [address] [phone] 12/24/2023 1:00 PM EDT TH Visit (TeleHealth) Radiation Oncology at [address] [phone] Ping Moore PA [facility] DR HEMATOLOGY [place] [address] documented as of this encounter Procedures Procedure Name Priority Date/Time Associated Diagnosis Comments FILM LIBRARY STORAGE ONLY MR HEAD Routine 11/26/2019 12:00 AM EDT documented in this encounter Results * Film Library- Storage Only MR Head (11/26/2019 12:00 AM EDT) Narrative EUFEMIA - 01/20/2021 12:11 PM EST This exam is auto-finalizing. It's purpose is for storage only. Alo Carey DO [facility] FILM LIBRARY ORD ERABLES [place], [place] documented in this encounter Visit Diagnoses Not on filedocumented in this encounter
--- OUTSIDE RECORDS SUMMARY | 2023-10-06 00:45 | XMS_ITS | Encounter Summary ---
Author Organization [facility] Address [address] [place] [address] Care Team Providers Care Loan Analyst Name Role Phone Unknown, Provider Primary Care Provider [phone] Encounter Details Date Type Department Care Team (Late st Contact Info) Description 01/10/2021 Lab Requisition [facility] Pathology & Laboratory Medicine - [address] [address] Mala Singh MD [address] [place] [phone] Encounter for other general examination Social History Tobacco Use Types Packs/Day Years Used Date Smoking Tobacco: Never Assessed Sex and Gender Information Value Date Recorded Sex Assigned at Not on file Gender Identity Male 01/24/2021 12:25 EST Sexual Orientation Not on file documented as of this encounter Plan of Treatment Not on file documented as of this encounter Procedures Procedure Name Priority Date/Time Associated Diagnosis Comments SURGICAL PATHOLOGY Today 01/10/2021 12 :24 EST documented in this encounter Results * SURGICAL PATHOLOGY (01/10/2021 12:24 EST) Note to Patient The following pathology results have been interpreted by your pathologist and may be available to you before your health provider has had the opportunity to review them. Please allow time for your provider to receive these results and explore management options, if applicable. 01/13/2021 15:[address] [facility] Final Diagnosis A. STOMACH, ANTRUM, BIOPSY: - Superficial fragments of gastric mucosa with chemical (reactive) gastropathy. B. GASTROESOPHAGEAL JUNCTION, BIOPSY: - Squamocolumnar junctional mucosa with ulcer and underlying granulation tissue. - Negative for fungal organisms on PAS stain. - Negative for viropathic cytologic changes. - Negative for intestinal metaplasia. - Negative for dysplasia. 01/13/2021 15:15 [facility] Attestation By the signature below, the attending physician certifies that they have 1) personally conducted a gross and/or microscopic examination of the described specimen(s), and/or personally interpreted the results of laboratory testing of the described specimen(s), and 2) personally rendered or confirmed the above diagnosis. 01/13/2021 15:15 [facility] at 1515 Clinical History Abnormal imaging; gastritis, esophagitis, hiatal hernia 01/13/2021 15:15 [facility] Gross Description A. Received in formalin labelled with proper patient identification (initials H, P) and gastric antrum mucosal Bx are 2 fragments of pink-bowden soft tissue (each averaging 0.2 x 0.2 x 0.2 cm). The specimen is entirely submitted in A1. B. Received in formalin labelled with proper patient identification (initials H, P) and GE junction mucosal Bx are 3 fragments of bowden-white soft tissue (ranging from 0.2 cm to 0.3 cm in greatest dimension). The specimen is entirely submitted in B1. CASA LINDO(ASCP) 01/11/2021 8:08 01/13/2021 15:15 [facility] Performing Lab [facility] 15:15 [facility] Scanned Images 01/13/2021 15:15 [facility] Tissue ENTIRE ESOPHAGUS / Unknown 01/10/2021 12:24 EST 01/10/2021 23:36 EST Tissue specimen (specimen) ESOPHAGEAL STRUCTURE / Unknown 01/10/2021 12:24 EST 01/10/2021 23:36 EST Mala Singh MD PATHOLOGY ORDER [facility]SE [facility] [address] [place] [address] documented in this encounter Visit Diagnoses Diagnosis Encounter for other general examination documented in this encounter Care Teams Loan Analyst Relationship Specialty Start Date End Date Unknown, Provider, PCP - General 03/04/20 documented as of this encounter
--- OUTSIDE RECORDS SUMMARY | 2023-10-06 00:45 | XMS_ITS ---
[place] [address] Care Team Providers Care Optimization Consultant Name Role Phone Tristen Hunter MD Primary Care Provider [phone] Enzyme Status:Enrolled (Active) Start date:07/24/2023 Enrollment date:07/24/2023 Enrollment reason:Enrolled - Currently Fills with Specialty Current support & services provided:Clinical Management, Refill Management Linked medications:lipase/protease/amylase (Active) Linked problems:Malignant neoplasm of head of pancreas (Active) Continued Care and Services Coordination
--- OUTSIDE RECORDS SUMMARY | 2023-10-06 00:45 | XMS_ITS | Encounter Summary ---
Author Organization [facility] Address [address] [place] [address] Care Team Providers Care Wing Commander Name Role Phone Unknown, Provider Primary Care Provider [phone] Reason for Visit * Reason Comments Eye Exam * Consult (Routine) - Authorization Not Required Specialty Diagnoses / Procedures Referred By Marques livingston Referred To Contact Ophthalmology Diagnoses Unspecified visual loss Alo Carey, DO [address] [place] [address] [address] [place] [address] [place] [address] [address] [place] [address] Referral ID Status Reason Start Date Expiration Date Visits Requested Visits Authorized [id number] Authorization Not Required 1 1 Encounter Details Date Type Department Care Team (Late st Contact Info) Description 02/17/2021 13:00 EST Office Visit [facility] Ophthalmology - [address] [address] Wero Avilez MD [address] [facility] [address] [place] [phone] Social History Tobacco Use Types Packs/Day Years Used Date Smoking Tobacco: Never Assessed Sex and Gender Information Value Date Recorded Sex Assigned at Not on file Gender Identity Male 01/24/2021 12:25 EST Sexual Orientation Not on file documented as of this encounter Ordered Prescriptions Prescription Sig Dispensed Refills Start Date End Da te timolol (TIMOPTIC) 0.25 % ophthalmic solutionIndications:Vision loss of right eye Place 1 Drop into the right eye 2 times daily. 10 mL 02/17/2021 documented in this encounter Progress Notes * Wero Avilez MD - 02/17/2021 1300 EST [facility] NEURO-OPHTHALMOLOGY CONSULTATION - 02/17/2021 Patient: Wero Sadler : [address] Carey, Thank you for requesting neuro-ophthalmological consultation on Mr. Sadler because of the history of vision loss in his right eye. This is a 71-year-old man who suffered vision loss in his right eye in November 2019. The patient was living in [place] at the time. He reports that he was working on his daughter's car and had numbness in his left arm followed by the beginning of the vision changes in the right eye. Of the courseof the hours today's the vision darkened and that eye. He presented to the local eye care provider and subsequently was referred to the local hospital due to concern for ischemia. MRI resulted in no identified stroke to the brain, vessel studies demonstrated intracranial atherosclerosis and narrowing. The patient was subsequently seen by a number of specialty eye care providers including a neuro-paint coating machine operator. 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 The patient has remained on dual antiplatelet therapy his vision remains unimproved. At the time, the patient denied any pain. 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 The patient is seen for neuro ophthalmic evaluation to discuss whether there are any treatments or strategies that might afford him improvement. The ocular history significant for refractive error, presbyopia and cataracts as well as vision loss in the left eye having suffered trauma, retinal detachment and subsequent enucleation in his youth. The medical history includes systemic hypertension, dyslipidemia, diabetes, peripheral vascular disease, coronary artery disease status post coronary artery bypass graft, obstructive sleep apnea, neuropathy, history of colon cancer as well as prostate cancer, history of carotid endarterectomy, and arthritis. Surgical history includes the enucleation, coronary artery bypass as well as carotid endarterectomy and partial colectomy. Medications were reviewed as documented in the notes that the patient provided to include; metformin, amlodipine, aspirin, carvedilol, clopidogrel, glimepiride, and atorvastatin. The patient has no known medication allergies. The family history includes Alzheimer's dementia in his sister who also suffered from Down's. Thereis no other known neurologic or ophthalmologic disease. The social history finds the patient to be a former smoker, alcohol moderation with no history of recreational drug use. The neuro-ophthalmic examination found the patient to be communicative and cooperative for testing.Visual acuities without correction were 20/400 in the right eye without pinhole or refractive refinement. Color vision (Ishihara found the patient unable to identify even the control plate with the right eye. Amsler grid testing was not testable. The right pupil was round reactive to light and near. The external examination of the eyes and orbits was normal with some degree of enophthalmos on theleft and a well-placed prosthetic in the orbit on the left. The lid on the right was in normal position with no lag or twitch. Examination extraocular motility showed full ductions on the right with no nystagmus. Applanation tonometry at 1438 hrs. was 14 mmHg in the right eye. Slit-lamp examinationrevealed blepharitis, early tear film, and a 2+ nuclear sclerotic cataract with otherwisenormal anterior segment on the right. There is mild blepharitis on the left, well-placed prosthetic, with some mucus debris. Automated (Garcia) visual field performed on the right eye demonstrated a near complete depression with spared area superior temporally, mean deviation score -30.11 dB and an undetectable foveal threshold. Undilated stereoscopic (indirect) funduscopy found the right opticnerve to be diffusely pale there is vascular attenuation mottling at the macula. Spectral domain OCT nerve fiber layer analysis demonstrated polar thinning at the disc on the right, average nerve fiber thickness of 53 ??m. There is diffuse thinning at the macula on the left with average ganglion cell layer thickness of 44 ??m in no clear vascular pattern of residual sparing of the nerve fiber layer. FORMULATION: This is a 71-year-old man seen for neuro ophthalmic evaluation because a history of vision loss in his only sided eye. The history suggests that the patient either had nonarteritic anterior ischemic optic neuropathy or a central retinal artery occlusion. The history that the patient had some numbness in his contralateral arm prior to vision loss is concerning for an ischemic event more similar to stroke than nonarteritic anterior ischemic optic neuropathy. Nonetheless, it seems thelatter was what was diagnosed. I explained to the patient that there is no treatment for either andno strategy that I have to improve his vision. The patient does report that occasionally he will note his vision is better if he enters a room he briefly can see things when he turns the light on. Tothis end, I think it reasonable to try to lower the pressure within the eye to see if better perfusion allows the patient some degree of better vision. If this were to be the case, he could continue the drop. Given that the patient has very limited vision and is monocular, I have recommended that he return for repeat visit in about 6 months. I will explore whether new therapies are being developed for nylon. Previously, there was a intramuscular injection being studied for chronic nylon if thisstudy is still open, the patient reports that he would be interested in exploring possibility of par ticipating. I spent a total of 70 minutes on the date of this encounter meeting with the patient and reviewing documentation/coordinating care as described in the above note. Thank you for allowing me to share in the care of your patient. Please do not hesitate to contact me with any further questions or concerns. Sincerely, Wero Avilez MD Diplomate, the [place] [employer] railroad repairer Department of Ophthalmology NEURO-OPHTHALMOLOGY documented in this encounter Plan of Treatment Pending Results Name Type Priority Associated Diagnoses Date /Time GARCIA VF 24-2 STANDARD - OD - RIGHT EYE Ophthalmology Routine Vision loss of right eye 02/17/2021 19:21 EST OCT, OPTIC NERVE - OD - RIGHT EYE Ophthalmology Routine Vision loss of right eye 02/17/2021 19:21 EST documented as of this encounter Procedures Procedure Name Priority Date/Time Associated Diagnosis Comments GARCIA VF 24-2 STANDARD - OD - RIGHT EYE Routine 02/17/2021 19:21 EST Vision loss of right eye OCT, OPTIC NERVE - OD - RIGHT EYE Routine 02/17/2021 19:21 EST Vision loss of right eye documented in this encounter Visit Diagnoses Diagnosis Vision loss of right eye- Primary Unqualified visual loss, one eye documented in this encounter Eye Exam Visual Acuity (Snellen - Linear) Right eye Left eye Dist sc 20/400 NLP Near cc 16- Tonometry (Applanation, 14:38) Right eye Left eye Pressure 14 NA Pupils Dark Light Shape React Right eye 5 3 Round Brisk Left eye Visual Matta Right eye Left eye Restrictions Total inferior nasal deficiency; Partial inner superior temporal, inferior temporal, superior nasal deficiencies Total superior temporal, inferior temporal, superior nasal, inferior nasal deficiencies Extraocular Movement Right eye Left eye Full Full Neuro/Psych Oriented x3: Yes Mood/Affect: Normal Amsler Right eye Left eye See drawing no vision Right eye not able to detect central dot, and had distortion in all 4 quadrants of vision Color Right eye Left eye Ishihara 0/14 no vision Care Teams Wing Commander Relationship Specialty Start Date End Date Unknown, Provider, PCP - General 03/04/20 documented as of this encounter
--- OUTSIDE RECORDS SUMMARY | 2023-10-06 00:45 | XMS_ITS | Encounter Summary ---
Author Organization [facility] Address [address] [place] [address] Care Team Providers Care Lumber Sales Supervisor Name Role Phone Unavailable Primary Care Provider Unavailabl e Reason for Visit * (Routine/Next Available) - Receiving Office to Obtain Authorization Specialty Diagnoses / Procedures Referred By Marques t Referred To Contact Procedures MR OUTSIDE IMAGES NEURO Unknown, Provider, Referral ID Status Reason Start Date Expiration Date Visits Requested Visits Authorized [id number] Receiving Office to Obtain Authorization 1 1 1 Encounter Details Date Type Department Care Team (Latest Contact Info) Description 11/26/2019 0:05 EDT - 11/26/2019 23:59 EDT Hospital Encounter [facility] Secondary Reads [place] Discharge Disposition: Home or [...] Comments MR OUTSIDE IMAGES NEURO Routine 12/20/2020 9:16 EDT documented in this encounter Results * MR OUTSIDE IMAGES NEURO (12/20/2020 9:16 EDT) Narrative 12/20/2020 9:16 EDT This is a non-reportable exam. Provider Unknown MD STAUFFER OTHER IMAGING OR DERABLES documented in this encounter Visit Diagnoses Not on filedocumented in this encounter
--- OUTSIDE RECORDS SUMMARY | 2023-10-06 00:45 | XMS_ITS | Encounter Summary ---
Author Organization [facility] Address [address] [place] [address] Care Team Providers Care Spa Concierge Name Role Phone Unknown, Provider Primary Care Provider Encounter Details Date Type Department Care Team (Late st Contact Info) Description 08/01/2022 Lab Requisition [facility] Pathology & Laboratory Medicine - [facility] [address] [place] [address] Outr Resulting Lab, Provider Social History Tobacco [...] Procedure Name Priority Date/Time Associated Diagnosis Comments TOTAL PROTEIN, FLUID Routine 08/01/2022 14:31 EDT LDH, FLUID Routine 08/01/2022 14:31 EDT documented in this encounter Results * TOTAL PROTEIN, FLUID (08/01/2022 14:31 EDT) Total Protein, Fluid 4.3 See Note g/dL 08/01/2022 22:08 EDT [facility] Comment: Pleural fluid Reference range unavailable. Clinical correlation required. This Fluid Total Protein assay was developed and its performance characteristics determined by [facility]. ??It has not been cleared or approved by the US Food and Drug Administration. Reference range unavailable. Clinical correlation required. This Fluid Total Protein assay was developed and its performance characteristics determined by [facility]. ??It has not been cleared or approved by the Food and Drug Administration. Fluid PLEURAL / Unknown 08/01/2022 14:31 EDT 08/01/2022 21:31 EDT Provider Outr Resulting Lab GEN LAB UNIT COLLECT ORDERABLES Performing Organization Address [facility] Co de Phone Number [facility] [address] [place] [address] * LDH, FLUID (08/01/2022 14:31 EDT) LDH, Fluid 696 See Note IU/L 08/01/2022 22:08 EDT [facility] Comment: Pleural fluid Reference range unavailable. Clinical correlation required. This Fluid LDH assay was developed and its performance characteristics determined by [facility]. ??It has not been cleared or approved by the Food and Drug Administration. Fluid PLEURAL / Unknown 08/01/2022 14:31 EDT 08/01/2022 21:31 EDT Provider Outr Resulting Lab GEN LAB UNIT COLLECT ORDERABLES Performing Organization Address [facility] Co de Phone Number [facility] [address] [place] [address] documented in this encounter Visit Diagnoses Not on filedocumented in this encounter Care Teams Spa Concierge Relationship Specialty Start Date End Date Unknown, Provider, PCP - General 03/04/20 documented as of this encounter
--- OUTSIDE RECORDS SUMMARY | 2023-10-06 00:45 | XMS_ITS | Encounter Summary ---
Author Organization [facility] [place] [address] Care Team Providers Care Latin Professor Name Role Phone Unavailable Primary Care Provider Unavailabl e Encounter Details Date Type Department Care Team (Late st Contact Info) Description 08/18/2020 Ancillary Procedure [place] [phone] Hai Tipton MD [facility] [place] [address] Social History Tobacco Use Types Packs/Day Years [...] AM EDT Tech [place] [phone] Giacomo Queen 10/11/2023 11:15 AM EDT Office [place] [phone] Basim Barr MD [facility] [place] [address] 10/18/2023 9:00 AM EDT Office Visit Hematology/Oncology at [address] [phone] Cl Hess MD [facility] [place] [address] Yessi Rneee, [address] HEMATOLOGY AND ONCOLOGY [place], [place] [phone] 10/18/2023 9:30 AM EDT Infusion Hematology Oncology at [address] [phone] 10/24/2023 9:30 AM EDT Scheduled View Only Radiation Oncology at [address] [phone] Jeronimo Bowen, [place] 10/24/2023 10:00 AM EDT Office Visit Radiation Oncology at [address] [phone] Bigg Peters MD [address] [place] [address] DR RADIATION ONCOLOGY [place], [place] [address] [phone] 11/01/2023 9:00 AM EDT Office Visit Hematology/Oncology at [address] [phone] Cl Hess MD [facility] [place] [address] Yessi Renee, [address] HEMATOLOGY AND ONCOLOGY [place], [place] [address] 11/01/2023 9:30 AM EDT Infusion Hematology Oncology at [address] [phone] 12/24/2023 1:00 PM EDT TH Visit (TeleHealth) Radiation Oncology at [address] [phone] Ping Moore PA [facility] DR [place] [address] documented as of this encounter Procedures Procedure Name Priority Date/Time Associated Diagnosis Comments FILM LIBRARY STORAGE ONLY DX HIP Routine 08/18/2020 12:00 AM EDT documented in this encounter Results * Film Library- Storage Only DX Hip (08/18/2020 12:00 AM EDT) Narrative JERONIMO - 08/23/2020 8:12 AM EDT This exam is auto-finalizing. It's purpose is for storage only. Hai Tipton MD G FILM LIBRARY ORD [facility] [place] documented in this encounter Visit Diagnoses Not on filedocumented in this encounter
--- OUTSIDE RECORDS SUMMARY | 2023-10-06 00:45 | XMS_ITS | Encounter Summary ---
Author Organization [facility] Address [facility] [place] [address] Care Team Providers Care Piano Instructor Name Role Phone Alo Carey DO Primary Care Provider [phone] Encounter Details Date Type Department Care Team (Latest Contact Info) Description 09/15/2020 9:45 AM EDT - 09/15/2020 11:59 PM EDT Hospital Encounter XRay at [address] [place] [address] Ismael Wu MD [facility] [place] [address] Primary osteoarthritis of both hips Discharge Disposition: Home Social History Tobacco Use [...] (E.C.) Take 81 mg by mouth daily. metFORMIN (FORTAMET) 500 mg Tablet Extended Rel 24 hr Take 1,000 mg by mouth 2 times daily (with meals). 06/07/2023 carvediloL (Coreg) 12.5 mg Tablet Take 12.5 mg by mouth 2 times daily (with meals). 01/20/2021 amLODIPine (Norvasc) 10 mg Tablet Take 5 mg by mouth daily. 11/18/2021 glimepiride (Amaryl) 1 mg Tablet Take 1 mg by mouth every morning (before breakfast). 10/12/2020 fish oil-omega-3 fatty acids 1,000 mg Capsule Take 1 g by mouth daily. 11/18/2021 documented as of this encounter Plan of Treatment Upcoming Encounters Date Type Department Care Team (Late st Contact Info) Description 10/11/2023 10:00 AM EDT Tech Visit [place] [address] Giacomo Queen 10/11/2023 11:15 AM EDT Office [place] [phone] Basim Barr MD [facility] [place] [address] 10/18/2023 9:00 AM EDT Office Visit Hematology/Oncology at [address] [phone] Cl Hess MD [facility] [address] Yessi Renee APRN [address] [place] [address] DR HEMATOLOGY AND ONCOLOGY [place], [place] [phone] 10/18/2023 9:30 AM EDT Infusion Hematology Oncology at [address] [phone] 10/24/2023 9:30 AM EDT Scheduled View Only Radiation Oncology at [address] [phone] St [place] Champagne 10/24/2023 10:00 AM EDT Office Visit Radiation Oncology at [address] [phone] Bigg Peters MD [address] [place] [address] DR RADIATION ONCOLOGY [place], [place] [phone] 11/01/2023 9:00 AM EDT Office Visit Hematology/Oncology at [address] [phone] Cl Hess MD [facility] [address] Yessi Renee APRN [address] [place] [address] DR HEMATOLOGY AND ONCOLOGY [place], [place] [phone] 11/01/2023 9:30 AM EDT Infusion Hematology Oncology at [address] [phone] 12/24/2023 1:00 PM EDT TH Visit (TeleHealth) Radiation Oncology at [address] [phone] Ping Moore PA [facility] [place] [address] documented as of this encounter Procedures Procedure Name Priority Date/Time Associated Diagnosis Comments XR PELVIS AND HIP 2 VIEWS BILATERAL Routine 09/15/2020 10:13 AM EDT Primary osteoarthritis of both hips documented in this encounter Results * XR [...] who have questions please contact the health wound care nurse that requested your imaging first. ? Electronically signed by: Shelly Richards MD, [facility] ([phone]), at 09/15/2020 11:17 AM Narrative 09/15/2020 11:17 [...] patients who have questions please contactthe health wound care nurse that requested your imaging first. Electronically signed by: Shelly Richards MD, [facility] ([phone]), at 09/15/2020 11:17 AM Ismael Wu MD IMG DX ORDERABLES documented in this encounter Visit Diagnoses Diagnosis Primary osteoarthritis of both hips Primary localized osteoarthrosis, pelvic region and thigh documented in this encounter Care Teams Piano Instructor Relationship Specialty Start Date End Date Alo Carey DO [address] [place] [address] [place] [address] PCP - General Internal Medicine 08/31/20 07/03/23 documented as of this encounter
--- OUTSIDE RECORDS SUMMARY | 2023-10-06 00:45 | XMS_ITS | Encounter Summary ---
Author Organization [facility] Address [address] [place] [address] Care Team Providers Care Guidance Adviser Name Role Phone Unknown, Provider Primary Care Provider Reason for Visit * Reason Comments Eye Problem Encounter Details Date Type Department Care Team (Late st Contact Info) Description 11/29/2021 8:00 EDT Office Visit [facility] Ophthalmology - [address] [phone] Wero Avilez MD [address] [facility], [address] [place] [address] Social History Tobacco Use Types Packs/Day Years Used Date Smoking Tobacco: Never Assessed Sex and Gender Information Value Date Recorded Sex Assigned at Not on file Gender Identity Male 01/24/2021 12:25 EST Sexual Orientation Not on file documented as of this encounter Progress Notes * Wero Avilez MD - 11/29/2021 0800 EDT Images from the original note were not included. DIVISION OF OPHTHALMOLOGY [facility] NEURO-OPHTHALMOLOGY FOLLOW-UP 11/29/2021 Mr. Sadler returned for follow-up neuro-ophthalmological examination because of the history of vision loss in his right eye. To recall, this a 71-year-old man who suffered vision loss in his right eye in November 2019. The patient was living in [place] at the time. He reported that he was working on his daughter's car andhad numbness in his left arm followed by the beginning of the vision changes in the right eye. Overthe course of hours that day's the vision darkened in that eye. He presented to a local eye care pro vider and was subsequently referred to the local hospital due to concern for ischemia. MRI resulted showed no identified stroke, vessel studies demonstrated intracranial atherosclerosis and narrowing. The patient was subsequently seen by a number of specialty eye care providers including a neuro-self propelled hot mix roller operator. By history it sounds as though the patient was either diagnosed with nonarteritic anterior ischemicoptic neuropathy or retinal occlusion. The patient was maintained on dual antiplatelet therapy. At the time of onset, the patient denied any pain. 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 At the time of his initial evaluation with me there was profound vision loss in the right eye with best corrected acuity of only 20/400 in the pale optic nerve. 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 His MRI was reviewed with no other abnormality to account for his vision loss. He was noting that occasionally the vision seems better transi ently when entering her room and as such I question whether or not this might be somehow pressure related or perfusion related. The patient returns for follow-up neuro-ophthalmic evaluation today. In the interval since his lastexamination he reports painless progression of his vision loss. The patient continues to experienceinstances where if he walks into a room and turns the light on, for a brief instance he reports being able to see the whole room quite clearly and then things go back to his baseline. The patient denies other new difficulties in the interval he returns for follow-up neuro- ophthalmic evaluation today. The neuro-ophthalmic examination found the patient to be communicative and cooperative for testing.Visual acuities without correction were 20/800 in the right eye without pinhole or refractive refinement. Color vision (Ishihara) found the patient unable to identify even the control plate with the right eye. Amsler grid testing was not testable. The right pupil was round reactive to light and near. 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 The lid on the right was in normal position with no lag or twitch. Examination extraocular motility showed full ductions on the right with no nystagmus. Applanation tonometry at 0824 hrs. was 12 mmHg in the right eye. Slit-lamp examination revealed blepharitis, early breakup of the tear film, and a 2+ nuclear sclerotic cataract with otherwise normal anterior segment on the right. There is mild blepharitis on the left, well-placed prosthetic, with some mucus debris. A Goldmann visual field was performed with good fixation. The field is generally constricted to all isopter's tested with some preservation more temporally than nasally. Dilated stereoscopic (indirect) funduscopy found the right optic nerve to be diffusely pale there is vascular attenuation mottling at the macula. Spectral domain OCT nerve fiber layer analysis demonstrated polar thinning at the disc on the right, average nerve fiber thickness of 45 ??m. r. FORMULATION: This is a 71-year-old man seen for follow-up neuro--evaluation because a history of vision loss in his only sided eye. The history suggests that the patient either had nonarteritic anterior ischemic optic neuropathy or a central retinal artery occlusion. The history that the patient had some numbness in his contralateral arm prior to vision loss is concerning for an ischemic event than nonarteritic anterior ischemic optic neuropathy. Nonetheless, it seems the latter was what was diagnosed at the time. At the patient's initial evaluation by me his central acuity was better howeverthere was significant atrophy and a limited visual field. Today, the patient's best corrected visual acuity is worse, and subjectively he reports the same. I see no other abnormality on examination to account for the worsening. I have recommended that we repeat dedicated MRI of the orbits. In addition, I think it would be reasonable for the patient to have consultation in [place] and we will arrange for the same. I spent a total of 30 minutes on the date of this encounter meeting with the patient and reviewing documentation/coordinating care as described in the above note. Please do not hesitate to contact me with any further questions or concerns. Sincerely, Wero Avilez MD Diplomate, the [employer] retail store assistant Department of Ophthalmology documented in this encounter Plan of Treatment Pending Results Name Type Priority Associated Diagnoses Date /Time OCT, OPTIC NERVE - OD - RIGHT EYE Ophthalmology Routine Vision loss of right eye 11/29/2021 13:19 EDT GOLDMANN PERIMETRY - OD - RIGHT EYE Ophthalmology Routine Vision loss of right eye 11/29/2021 13:19 EDT documented as of this encounter Procedures Procedure Name Priority Date/Time Associated Diagnosis Comments OCT, OPTIC NERVE - OD - RIGHT EYE Routine 11/29/2021 13:19 EDT Vision loss of right eye GOLDMANN PERIMETRY - OD - RIGHT EYE Routine 11/29/2021 13:19 EDT Vision loss of right eye documented in this encounter Visit Diagnoses Diagnosis Vision loss of right eye- Primary Unqualified visual loss, one eye documented in this encounter Historical Medications * This list may reflect changes made after this encounter. Medication Sig Dispensed Refills Start Date End Date UNKNOWN TO PATIENT Injection every 6 months naproxen sodium (ANAPROX) 220 mg tablet Take 220 mg by mouth 2 times daily with breakfast and dinner. TAMSulosin (FLOMAX) 0.4 mg capsule Take 0.4 mg by mouth daily. metFORMIN (GLUCOPHAGE) 500 mg tablet Take 500 mg by mouth 2 times daily with breakfast and dinner. lisinopriL (PRINIVIL) 40 mg tablet Take 40 mg by mouth daily. omega 8-wrf-flc-fish oil (FISH OIL) 100-160-1,000 mg capsule Take by mouth. isosorbide MONOnitrate (IMDUR) 30 mg CR tablet Take 30 mg by mouth every morning. glimepiride (AMARYL) 2 mg tablet Take 2 mg by mouth every morning. amLODIPine (NORVASC) 2.5 mg tablet Take 2.5 mg by mouth daily. folic acid (FOLVITE) 1 mg tablet Take 1 mg by mouth daily. erythromycin (ROMYCIN) 5 mg/gram (0.5 %) ophthalmic ointment 1 cm as needed. carvediloL (COREG) 25 mg tablet Take 25 mg by mouth 2 times daily with breakfast and dinner. atorvastatin (LIPITOR) 80 mg tablet Take 80 mg by mouth daily. aspirin (ASPIR-81 ORAL) Take by mouth. added in this encounter Eye Exam Visual Acuity (Snellen - Linear) Right eye Left eye Dist cc LP NLP Near cc 20/800 Tonometry (Applanation, 8:24) Right eye Left eye Pressure 12 N/A Visual Matta Right eye Left eye Restrictions Total superior tempo ral, inferior temporal, superior nasal, inferior nasal deficiencies Total superior temporal, inferior temporal, superior nasal, inferior nasal deficiencies Neuro/Psych Oriented x3: Yes Mood/Affect: Normal Dilation Right eye: Paremyd @ 9:30 Amsler Right eye Left eye Missing lines Unable Color Right eye Left eye Ishihara 0/11 Unable Stereo Titmus: Unable to assess Wearing Rx Sphere Cylinder Add Right eye +0.25 Sphere +2.50 Left eye [place] Sphere +2.50 Care Teams Guidance Adviser Relationship Specialty Start Date End Date Unknown, Provider, PCP - General 03/04/20 documented as of this encounter
--- OUTSIDE RECORDS SUMMARY | 2023-10-06 00:45 | XMS_ITS | Encounter Summary ---
Author Organization [facility] Address [address] [place] [address] Care Team Providers Care Computer Software Engineer Name Role Phone Unknown, Provider Primary Care Provider [phone] Encounter Details Date Type Department Care Team (Late st Contact Info) Description 11/06/2022 Lab Requisition [facility] Pathology & Laboratory Medicine - [address] [address] Filiberto Griffin MD [address] [place] [phone] Encounter for other general examination Social History [...] Date/Time Associated Diagnosis Comments SURGICAL PATHOLOGY Today 11/06/2022 9:28 EDT documented in this encounter Results * SURGICAL PATHOLOGY (11/06/2022 9:28 EDT) Note to Patient The following pathology results have been interpreted by your pathologist and may be available to you before your health provider has had the opportunity to review them. Please allow time for your provider to receive these results and explore management options, if applicable. 11/08/2022 10:43 [facility] Final Diagnosis A. COLON, RANDOM BIOPSIES: - Focal reactive changes. - No features of microscopic colitis present. - Negative for dysplasia and malignancy. 11/08/2022 10:43 [facility] Attestation By the signature below, the attending physician certifies that they have 1) personally conducted a gross and/or microscopic examination of the described specimen(s), and/or personally interpreted the results of laboratory testing of the described specimen(s), and 2) personally rendered or confirmed the above diagnosis. 11/08/2022 10:43 [facility] at 1043 Clinical History Diarrhea, hx colon cancer, colon polyp 11/08/2022 10:43 [facility] Gross Description A. Received in formalin labelled with proper patient identification (initials H, P) and A. Random biopsies are 7 bowden and bowden focally brown tissues (0.5 x 0.4 x 0.1 cm to 0.2 x 0.2 x 0.1 cm). Entirely submitted in A1-A2. Aliyah Rachel 11/07/2022 9:33 11/08/2022 10:43 [facility] Performing Lab [facility] 11/08/2022 10:43 [facility] Scanned Images 11/08/2022 10:43 [facility] Tissue COLON STRUCTURE / Unknown 11/06/2022 9:28 EDT 11/07/2022 8:42 EDT Filiberto Griffin MD PATHOLOGY ORDERABLES [facility] [address] [place] [address] documented in this encounter Visit Diagnoses Diagnosis Encounter for other general examination documented in this encounter Care Teams Computer Software Engineer Relationship Specialty Start Date End Date Unknown, Provider, PCP - General 03/04/20 documented as of this encounter
--- OUTSIDE RECORDS SUMMARY | 2023-10-06 00:45 | XMS_ITS | Encounter Summary ---
Author Organization [facility] Address [address] [place] [address] Care Team Providers Care Tin Roofer Name Role Phone Unknown, Provider Primary Care Provider Encounter Details Date Type Department Care Team (Late st Contact Info) Description 06/29/2022 Lab Requisition [facility] Pathology & Laboratory Medicine - [address] [address] Outr Resulting Lab, Provider Social History Tobacco [...] Priority Date/Time Associated Diagnosis Comments TESTOSTERONE Routine 06/29/2022 12:02 EDT documented in this encounter Results * (ABNORMAL) TESTOSTERONE (06/29/2022 12:02 EDT) Testosterone 50(L) 229 - 902 ng/dL 06/29/2022 23:28 EDT [facility] Blood VENOUS BLOOD / Unknown 06/29/2022 12:02 EDT 06/29/2022 22:13 EDT Narrative [facility] - 06/29/2022 23:28 EDT The results of this assay can be falsely elevated due to the consumption of Biotin. Provider Outr Resulting Lab CHEMISTRY & BLOOD GAS ORDERABLES [facility] [address] [place] [address] documented in this encounter Visit Diagnoses Not on filedocumented in this encounter Care Teams Tin Roofer Relationship Specialty Start Date End Date Unknown, Provider, PCP - General 03/04/20 documented as of this encounter
--- OUTSIDE RECORDS SUMMARY | 2023-10-06 00:45 | XMS_ITS | Encounter Summary ---
Author Organization [facility] Address [address] [place] [address] Care Team Providers Care Fur Finisher Tailor Name Role Phone Unknown, Provider Primary Care Provider [phone] Encounter Details Date Type Department Care Team (Late st Contact Info) Description 11/14/2021 Lab Requisition [facility] Pathology & Laboratory Medicine - [address] [address] Outr Resulting Lab, Provider Social History Tobacco [...] Priority Date/Time Associated Diagnosis Comments TESTOSTERONE Routine 11/14/2021 13:20 EDT documented in this encounter Results * (ABNORMAL) TESTOSTERONE (11/14/2021 13:20 EDT) Testosterone 8(L) 229 - 902 ng/dL 11/15/2021 9:58 EDT [facility] Blood VENOUS BLOOD / Unknown 11/14/2021 13:20 EDT 11/14/2021 21:09 EDT Narrative [facility] - 11/15/2021 9:58 EDT The results of this assay can be falsely elevated due to the consumption of Biotin. Provider Outr Resulting Lab CHEMISTRY & BLOOD GAS ORDERABLES [facility] [address] [place] [address] documented in this encounter Visit Diagnoses Not on filedocumented in this encounter Care Teams Fur Finisher Tailor Relationship Specialty Start Date End Date Unknown, Provider, PCP - General 03/04/20 documented as of this encounter
--- OUTSIDE RECORDS SUMMARY | 2023-10-06 00:45 | XMS_ITS | Encounter Summary ---
Author Organization [facility] Address [address] [place] [address] Care Team Providers Care Pharmacy Account Director Name Role Phone Unknown, Provider Primary Care Provider Reason for Visit * Reason Onset Date Comments Paperwork request 03/28/2021 Encounter Details Date Type Department Care Team (Late st Contact Info) Description 03/27/2021 Telephone [facility] Ophthalmology - [address] [address] Wero Avilez MD [address] [facility], [facility] [address] [place] [address] Paperwork request Social History Tobacco Use Types Packs/Day Years Used Date Smoking Tobacco: Never Assessed Sex and Gender Information Value Date Recorded Sex Assigned at Not on file Gender Identity Male 01/24/2021 12:25 EST Sexual Orientation Not on file documented as of this encounter Miscellaneous Notes * Telephone Encounter - Daria Thomas - 03/28/2021 1253 EST Bela Herndon spoke with pt, pt aware * Telephone Encounter - Daria Thomas - 03/28/2021 1245 EST Notes mailed * Telephone Encounter - Daria Thomas - 03/28/2021 0922 EST Waiting to see if Dr Avilez has the notes. Patient was aware of this yesterday. * Telephone Encounter - Ping Roberts - 03/28/2021 0859 EST Pt called back and is a little frustrated that no one has called him back and that he still has notreceived his paperwork from [facility] that he left to be scanned into our records. He wants the originals back not a copy. PCB to let him know and I did verify his address. * Telephone Encounter - Daria Thomas - 03/27/2021 1019 EST Spoke with patient. States he left notes from [facility] here at the time of his appointment. No notes scanned under media will check Dr Avilezs desk * Telephone Encounter - Stephanie Delgado - 03/27/[address] Avilez in February and he left some paperwork at our office including MRI results. He called us previously and was told we would be sending them to him but he hasn't received anything. Pt would like a CB with an update. documented in this encounter Plan of Treatment Not on file documented as of this encounter Visit Diagnoses Not on filedocumented in this encounter Care Teams Pharmacy Account Director Relationship Specialty Start Date End Date Unknown, Provider, PCP - General 03/04/20 documented as of this encounter
--- OUTSIDE RECORDS SUMMARY | 2023-10-06 00:45 | XMS_ITS | Clinical Summary ---
Author Organization [facility] Address [address] [place] [address] Care Team Providers Care Project Internship Name Role Phone Unknown, Provider Primary Care Provider [phone] Allergies Active Allergy Reactions Criticality Noted Date [...] mg by mouth every morning. Active omega 1-fjw-uyh-fish oil (FISH OIL) 100-160-1,000 mg capsule Take [...] Orientation Not on file Plan of Treatment Health Maintenance Due Date Last Done Comments Hepatitis C Screen 1948 RSV Immunization ( o r 60+ Years) (1 - 1-dose 60+ series) 2008 Fall Risk Screening 01/25/2013 COVID-19 Vaccine ( season) 2022 Care Teams Project Internship Relationship Specialty Start Date End Date Unknown, Provider, PCP - General 03/04/20
[2023-10-06] MEDS: Normal Saline Flush 10 ML SYR IVP (12:47)
[2023-10-20] MEDS: Normal Saline Flush 10 ML SYR IVP (15:52)
== END 2023-11-02 23:59 | disposition home or self-care (01) ==
LOC: INF 00:34
PROVIDERS: PCP Family Medicine; Visit Provider Internal Medicine Hematology & Oncology
DX: Z45.2 Encounter for adjustment and management of vascular access device (principal)
CPT/HCPCS: 96523

== ENCOUNTER 2024-03-12 10:44 | Outpatient (REF) | payer MEDICARE, SELFPAY ==
--- OUTSIDE RECORDS SUMMARY | 2024-03-12 10:48 | XMS_ITS | Encounter Summary ---
[place] [address] Care Team Providers Care Substation Operator Chief Name Role Phone Tristen Hunter MD Primary Care Provider [phone] Encounter Details Date Type Department Care Team (Latest Contact Info) Description 02/07/2024 Travel Social History Tobacco Use Types Packs/Day Years Used Date Smoking Tobacco: Former Cigarettes 4 30 1 963 - 1992 Smokeless Tobacco: Never Alcohol Use Standard Drinks/Week Comments Yes 7 (1 standard drink = 0.6 oz pur e alcohol) [facility] Utilities Answer Date Recorded In the past 12 months has [employer] electric, gas, oil, or water company threatened to shut off services in your home? No 01/24/2024 Overall Financial Resource Strain (CARDIA) Answe r [...] the money to buy more. Never true 01/24/20 24 Within the past 12 months, t he food you bought just didn't last and you didn't have money to get more. Never true 01/24/2024 PRAPARE - Transportation Answer Date Re corded In the past 12 months, has l ack of transportation kept you from medical appointments or from getting medications? No 01/03 In the past 12 months, has l ack of transportation kept you from meetings, work, or from getting things needed for daily living? No 01/24/2024 Housing Stability Vital Sign Answer Meek e [...] in a custodial (including now)? No 06/04/2023 Housing Stability Vital Sign Answer Meek e Recorded In the last 12 months, was t here a time when you were not able to pay the mortgage or rent on time? No 01/24/2024 In the past 12 months, how m any times have you moved where you were living? 0 01/24/2024 At any time in the past 12 m [facility], were you homeless or living in a custodial (including now)? No 01/24/2024 IPV Inpatient Questions Answer Date Recorded Does Anyone Try to Keep You From Having Contact with Others or Doing Things Outside Your Home? no 01/23/2024 Feels Threatened by Someone no 01/03 Feels Unsafe at Home or Work/School no 01/23/2024 Physical Signs of Abuse Present no 01/23/2024 Sex and Gender Information Value Date Recorded Sex Assigned at Not on file Gender Identity Not on file Sexual Orientation Not on file documented as of this encounter Plan of Treatment Upcoming Encounters Date Type Department Care Team (Late st Contact Info) Description 03/24/2024 9:00 AM EST TH Visit (TeleHealth) Radiation Oncology at [address] [phone] Ping Moore PA [facility] [place] [address] 03/26/2024 9:30 AM EST Office Visit Hematology/Oncology at [address] [phone] [address] HEMATOLOGY AND ONCOLOGY [place], [place] [address] 03/26/2024 9:30 AM EST Infusion Hematology Oncology at [address] [phone] 04/09/2024 9:30 AM EST Office Visit Hematology/Oncology at [address] [phone] Cl Hess MD [facility] [place] [address] [address] HEMATOLOGY [place] [address] 04/09/2024 10:00 AM EST Infusion Hematology Oncology at [address] [phone] 04/23/2024 9:30 AM EST Office Visit Hematology/Oncology at [address] [phone] Cl Hess MD [facility] [place] [address] [address] HEMATOLOGY AND ONCOLOGY [place], [place] [address] 04/23/2024 10:00 AM EST Infusion Hematology Oncology at [address] [phone] 05/18/2024 4:30 PM EDT TH Visit (TeleHealth) [place] [address] Malachi Rothman MD [facility] [place] [address] documented as of this encounter Visit Diagnoses Not on filedocumented in this encounter Care Teams Substation Operator Chief Relationship Specialty Start Date End Date Tristen Hunter MD [address] [place] [address] [place] [address] PCP - General Family Medicine 07/04/23 documented as of this encounter
--- OUTSIDE RECORDS SUMMARY | 2024-03-12 10:48 | XMS_ITS | Encounter Summary ---
[place] [address] Care Team Providers Care Podiatrist Assistant Name Role Phone Tristen Hunter MD Primary Care Provider [phone] Encounter Details Date Type Department Care Team (Latest Contact Info) Description 02/07/2024 12:30 PM EST Clinical Support [place] [phone] Encounter for staple removal Social History Tobacco Use Types Packs/Day Years Used Date Smoking Tobacco: Former Cigarettes 4 30 1 963 - 1992 Smokeless Tobacco: Never Alcohol Use Standard Drinks/Week Comments Yes 7 (1 standard drink = 0.6 oz pur e alcohol) [facility] Utilities Answer Date Recorded In the past 12 months has [employer], gas, oil, or water [employer] threatened to shut off services in your [...] in a correction (including now)? No 06/04/2023 Housing Stability Vital Sign Answer Meek e Recorded In the last 12 months, was t here a time when you were not able to pay the mortgage or rent on time? No 01/24/2024 In the past 12 months, how m any times have you moved where you were living? 0 01/24/2024 At any time in the past 12 m [facility], were you homeless or living in a correction (including now)? No 01/24/2024 IPV Inpatient Questions [...] as of this encounter Progress Notes * Bela Barros RN - 02/07/2024 12:30 PM EST Staple Removal: Date: 02/07/2024 Time:11:09 AM The patient was identified as Wero Sadler. The patient is s/p Case Date: 01/23/2024 Surgeon: Surgeons and Role: * Charu Balbuena MD - Primary * Uday Gomes MD - Resident - Assisting * Joe Espinosa MD - Assisting Attending Preoperative diagnosis: PANCREAS CANCER Postoperative diagnosis: PANCREAS CANCER Procedure(s) (LRB): @WHIPPLE PROCEDURE (WRVU 52.84) (N/A) PORTAL VEIN REPAIR (WRVU 13.24) @OMENTAL FLAP, INTRA-ABDOMINAL (WRVU 6.54) Wero's incision appears to be well approximate with reactive erythema at the staple sites. There is no sign of infection. his jay were removed with ease. Mastisol was applied to the incision edges and allowed to dry. Steri-strips were applied. Plan of Care: Signs and symptoms of infection were reviewed with Wero. he was instructed to keep them in place for 7- 10 days and how to remove them. Wero was able to verbalize his understanding of the above instructions. documented in this encounter Plan of Treatment Upcoming Encounters Date Type Department Care Team (Late st Contact Info) Description 03/24/2024 9:00 AM EST TH Visit (TeleHealth) Radiation Oncology at [address] [phone] Ping Moore PA [facility] DR [place] [address] 03/26/2024 9:30 AM EST Office Visit Hematology/Oncology at [address] [phone] Yessi Renee APRN [address] [place] [address] DR HEMATOLOGY AND ONCOLOGY [place], [place] [id number] 03/26/2024 9:30 AM EST Infusion Hematology Oncology at [address] [phone] 04/09/2024 9:30 AM EST Office Visit Hematology/Oncology at [address] [phone] Cl Hess MD [facility] [place] [address] HEMATOLOGY AND ONCOLOGY [place], [place] [address] 04/09/2024 10:00 AM EST Infusion Hematology Oncology at [address] [phone] 04/23/2024 9:30 AM EST Office Visit Hematology/Oncology at [address] [phone] Cl Hess MD [facility] [place] [address] [address] [place] [address] 04/23/2024 10:00 AM EST Infusion Hematology Oncology at [address] [phone] 05/18/2024 4:30 PM EDT TH Visit (TeleHealth) [place] [address] Malachi Rothman MD [facility] [place] [address] documented as of this encounter Visit Diagnoses Diagnosis Encounter for staple removal Encounter for removal of sutures documented in this encounter Care Teams Podiatrist Assistant Relationship Specialty Start Date End Date Tristen Hunter MD [address] [place] [address] [place] [address] PCP - General Family Medicine 07/04/23 documented as of this encounter
--- OUTSIDE RECORDS SUMMARY | 2024-03-12 10:48 | XMS_ITS | Encounter Summary ---
Author Organization [facility] [place] [address] Care Team Providers Care Gear Changer Name Role Phone Tristen Hunter MD Primary Care Provider [phone] Encounter Details Date Type Department Care Team (Late st Contact Info) Description 02/18/2024 1:00 PM EST Office Visit [place] [address] Charu Balbuena MD [facility] [place] [address] Exocrine pancreatic insufficiency Social History Tobacco Use Types Packs/Day Years Used Date Smoking Tobacco: Former Cigarettes 4 30 1 3 - 1992 Smokeless Tobacco: Never Alcohol Use Standard Drinks/Week Comments Yes 7 (1 standard drink = 0.6 oz pur e alcohol) [facility] Utilities Answer Date Recorded In the past 12 months has [employer] electric, gas, oil, or water company threatened [...] place to sleep or slept in a assisted (including now)? No 06/04/2023 Housing Stability Vital Sign Answer Meek e Recorded In the last 12 months, was t here a time when you were not able to pay the mortgage or rent on time? No 01/24/2024 In the past 12 months, how m any times have you moved where you were living? 0 01/24/2024 At any time in the past 12 m [facility], were you homeless or living in a assisted (including now)? No 01/24/2024 IPV Inpatient Questions [...] as of this encounter Progress Notes * Charu Balbuena MD - 02/18/2024 1:00 PM EST No show appointment documented in this encounter Plan of Treatment Upcoming Encounters Date Type Department Care Team (Late st Contact Info) Description 03/24/2024 9:00 AM EST TH Visit (TeleHealth) Radiation Oncology at [address] [phone] Ping Moore PA [facility] DR HEMATOLOGY [place] [address] 03/26/2024 9:30 AM EST Office Visit Hematology/Oncology at [address] [phone] Yessi Renee [address] HEMATOLOGY AND ONCOLOGY [place], [place] [phone] 03/26/2024 9:30 AM EST Infusion Hematology Oncology at [address] [phone] 04/09/2024 9:30 AM EST Office Visit Hematology/Oncology at [address] [phone] Cl Hess MD [facility] [place] [address] [address] HEMATOLOGY AND ONCOLOGY [place], [place] [address] 04/09/2024 10:00 AM EST Infusion Hematology Oncology at [address] [phone] 04/23/2024 9:30 AM EST Office Visit Hematology/Oncology at [address] [phone] Cl Hess MD [facility] [place] [address] Yessi Renee APRN [address] [place] [address] DR HEMATOLOGY AND ONCOLOGY [place], [place] [address] 04/23/2024 10:00 AM EST Infusion Hematology Oncology at [address] [phone] 05/18/2024 4:30 PM EDT TH Visit (TeleHealth) [place] [phone] Malachi Rothman MD [facility] DR RADIATION [place] [address] documented as of this encounter Visit Diagnoses Diagnosis Exocrine pancreatic insufficiency Other specified disease of pancreas documented in this encounter Care Teams Gear Changer Relationship Specialty Start Date End Date Tristen Hunter MD [address] [place] [address] [place] [address] PCP - General Family Medicine 07/04/23 documented as of this encounter
--- OUTSIDE RECORDS SUMMARY | 2024-03-12 10:48 | XMS_ITS | Encounter Summary ---
[place] [address] Care Team Providers Care Harness Placer Name Role Phone Tristen Hunter MD Primary Care Provider [phone] Encounter Details Date Type Department Care Team (Late st Contact Info) Description 02/03/2024 Telephone [place] [address] Chen Mcdonald, RN Social History Tobacco Use Types Packs/Day Years Used Date Smoking Tobacco: Former Cigarettes 4 30 1 963 - 1992 Smokeless Tobacco: Never Alcohol Use Standard Drinks/Week Comments Yes 7 (1 standard drink = 0.6 oz pur e alcohol) [facility] Utilities Answer Date Recorded In the past 12 months has [employer], gas, oil, or water [employer] threatened to shut off services in your [...] health care facility (including now)? No 06/04/2023 Housing Stability Vital Sign Answer Meek e Recorded In the last 12 months, was t here a time when you were not able to pay the mortgage or rent on time? No 01/24/2024 In the past 12 months, how m any times have you moved where you were living? 0 01/24/2024 At any time in the past 12 m [facility], were you homeless or living in a [place] health care facility (including now)? No 01/24/2024 IPV Inpatient Questions [...] encounter Miscellaneous Notes * Telephone Encounter - Chen Mcdonald RN - 02/03/2024 11:05 AM EST [facility] called today for clarification of the Amoxicillin prescription. Dr. Moore to correct. documented in this encounter Plan of Treatment Upcoming Encounters Date Type Department Care Team (Late st Contact Info) Description 03/24/2024 9:00 AM EST TH Visit (TeleHealth) Radiation Oncology at [address] [phone] Ping Moore PA [facility] HEMATOLOGY [place] [address] 03/26/2024 9:30 AM EST Office Visit Hematology/Oncology at [address] [phone] [address] HEMATOLOGY AND ONCOLOGY [place], [place] [phone] 03/26/2024 9:30 AM EST Infusion Hematology Oncology at [address] [phone] 04/09/2024 9:30 AM EST Office Visit Hematology/Oncology at [address] [phone] Cl Hess MD [facility] [place] [address] [address] HEMATOLOGY AND ONCOLOGY [place], [place] [address] 04/09/2024 10:00 AM EST Infusion Hematology Oncology at [address] [phone] 04/23/2024 9:30 AM EST Office Visit Hematology/Oncology at [address] [phone] Cl Hess MD [facility] [place] [address] Yessi Renee APRN [address] [place] [address] DR HEMATOLOGY AND ONCOLOGY [place], [place] [address] 04/23/2024 10:00 AM EST Infusion Hematology Oncology at [address] [phone] 05/18/2024 4:30 PM EDT TH Visit (TeleHealth) [place] [address] Malachi Rothman MD [facility] [place] [address] documented as of this encounter Visit Diagnoses Not on filedocumented in this encounter Care Teams Harness Placer Relationship Specialty Start Date End Date Tristen Hunter MD [address] [place] [address] [place] [address] PCP - General Family Medicine 07/04/23 documented as of this encounter
--- OUTSIDE RECORDS SUMMARY | 2024-03-12 10:48 | XMS_ITS | Encounter Summary ---
Author Organization Pending Sale To [facility] Address [facility] [place] [address] Care Team Providers Care Long Chain Quiller Tender Name Role Phone Tristen Hunter MD Primary Care Provider [phone] Encounter Details Date Type Department Care Team (Late st Contact Info) Description 02/19/2024 Telephone Hematology/Oncology at [address] [phone] [facility] DR HEMATOLOGY [place] [address] Social History Tobacco Use Types Packs/Day Years Used Date Smoking Tobacco: Former Cigarettes 4 30 1 963 - 1992 Smokeless Tobacco: Never Alcohol Use Standard Drinks/Week Comments Yes 7 (1 standard drink = 0.6 oz pur e alcohol) [facility] Utilities Answer Date Recorded In the past [...] a nursing home (including now)? No 06/04/2023 Housing Stability Vital Sign Answer Meek e Recorded In the last 12 months, was t here a time when you were not able to pay the mortgage or rent on time? No 01/24/2024 In the past 12 months, how m any times have you moved where you were living? 0 01/24/2024 At any time in the past 12 m [facility], were you homeless or living in a nursing home (including now)? No 01/24/2024 IPV Inpatient Questions [...] encounter Miscellaneous Notes * Telephone Encounter - Eva Lupe Frey, RD - 02/19/2024 9:07 AM EST Nutrition Note Spoke with Wero over the phone today. 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 Patient had TPN while inpatient which was discontinued on 01/30. He was discharged home on carb controlled diet. Patient also completed SBRT on 11/26 as well as 8 cycles of mFolfirinox 07/11-10/18/23. Patient missed f/u appt with Dr. Balbuena yesterday. He said he was unaware of appointment and wondersif it could be rescheduled as a phone call. Patient reports he is doing damn good. He reports his BG has been running a bit high (FBG 186 today), but he prefers this to having low's that cause his CGM to alarm and wake him up overnight. He follows up regularly with PCP office for DM management. He feels he is eating well and has a good appetite. He has 4-5 meals/snacks daily, about every 3 hours. He is taking 1 capsule Creon 24 each time and feels this is sufficient. His gas has improved compared to pre-surgery. He has a BM once daily or every other day and thinks these are normal (thoughthis may be difficult to civil lawyer as he is blind). Patient says I think I should be drinking more water but he is opting more for juice lately. He drinks Glucerna protein drink regularly, though not daily. He says his weight at home is 195#, which is up from a low of 190# since he has been home. Weight on day of discharge from was 190#. He has an med onc f/u appointment with Yessi Renee NP next week on 02/24 and says he is having labs drawn for this tomorrow. Wt Readings from Last 10 Encounters: 02/01/24 86.3 kg (190 lb 4.1 oz) 12/17/23 95.7 kg (211 lb) 11/29/23 92.2 kg (203 lb 3.2 oz) 12/02/23 90.7 kg (200 lb) 11/27/23 89.3 kg (196 lb 12.8 oz) 11/25/23 90.1 kg (198 lb 9.6 oz) 11/21/23 90.3 kg (199 lb) 11/18/23 90.7 kg (200 lb) 11/15/23 90.3 kg (199 lb) 11/01/23 91.9 kg (202 lb 9.6 oz) BMI 28.1 21# (9.8% body weight) loss over past 6 weeks 12/16-01/31 (Whipple on 01/22) - severe Unsure of accuracy of this weight loss - question if edema/diuresis was factor 35# re-gain in 5.5 months 07/04-12/16 Includes 8# gain in past 3 weeks 11/28-12/16 44# (23.2% body weight) loss over past year per chart 07/31/22-07/05/23 Lost 85# total per patient Diet: Eating 4-5 times per day, every 3 hours. Going to have guevara, egg and cheese breakfast sandwich after we get off the phone. He has HS snack of Romansh yogurt and cookies. Taking one capsule Creon 24 per meal/snack (was taking 3-4 per meal and 1-2 per snack prior to surgery). Medications: Augmentin, amlodipine, aspirin, atorvastatin, carvedilol, chlorthalidone, folic acid, Fiasp sliding scale insulin (unchanged), Tresiba insulin (reduced to 20 units in AM), imdur, Creon 24, lisinopril, omega 3-GRV-WPB-fish oil, flomax Labs on 02/02: Na 128L, K 4.6, AlkPhos 186H, AST 19, ALT 44, BUN 23H, BG 433H, Creat 1.2, Alb 3.2, Tbili 1.2H 01/22: A1C 7.0% Nutrition Problem: Inadequate intake related to s/p Whipple procedure as evidenced by ED visit for dehydration on 02/02. Improving Estimated needs based on 86.3 [id number] kcals (25-30 kcal/kg) 86-112 g protein (1-1.3 g/kg) 1 ml/kcal fluids Recommendations: Continue with regular meals/snacks. Patient reports he has re-gained 5# on his current pattern of eating 4-5 times/day. Encouraged continuing with this and paying attention to adequate hydration. PCPoffice is following BG closely via his CGM data. Drinking 1 Glucerna protein drink regularly thoughnot daily. Creon 24: taking 1 capsule per meal/snack. He reports regular BM's and improved gas compared to pre-surgery. Will f/u by phone on 02/26 as I am out of clinic when he comes on 02/24 next week. documented in this encounter Plan of Treatment Upcoming Encounters Date Type Department Care Team (Late st Contact Info) Description 03/24/2024 9:00 AM EST TH Visit (TeleHealth) Radiation Oncology at [address] [phone] Ping Moore PA [facility] DR HEMATOLOGY [place] [address] 03/26/2024 9:30 AM EST Office Visit Hematology/Oncology at [address] [phone] [address] HEMATOLOGY AND ONCOLOGY [place], [place] [phone] 03/26/2024 9:30 AM EST Infusion Hematology Oncology at [address] [phone] 04/09/2024 9:30 AM EST Office Visit Hematology/Oncology at [address] [phone] Cl Hess MD [facility] [place] [address] [address] HEMATOLOGY AND ONCOLOGY [place], [place] [address] 04/09/2024 10:00 AM EST Infusion Hematology Oncology at [address] [phone] 04/23/2024 9:30 AM EST Office Visit Hematology/Oncology at [address] [phone] Cl Hess MD [facility] [place] [address] Yessi Renee APRN [address] [place] [address] DR HEMATOLOGY AND ONCOLOGY [place], [place] [id number] 04/23/2024 10:00 AM EST Infusion Hematology Oncology at [address] [phone] 05/18/2024 4:30 PM EDT TH Visit (TeleHealth) [place] [phone] Malachi Rothman MD [facility] [place] [address] documented as of this encounter Visit Diagnoses Not on filedocumented in this encounter Care Teams Long Chain Quiller Tender Relationship Specialty Start Date End Date Tristen Hunter MD [address] [place] [address] [place] [address] PCP - General Family Medicine 07/04/23 documented as of this encounter
--- OUTSIDE RECORDS SUMMARY | 2024-03-12 10:48 | XMS_ITS | Clinical Summary ---
[place] [address] Care Team Providers Care Community Services Coordinator Name Role Phone Tristen Hunter MD Primary Care Provider [phone] Allergies Active Allergy Reactions Criticality Noted Date [...] at [facility] in [place]: shaking Has tolerated MRI and CT contrast. [...] 07/21/2021 Active timoloL (Timoptic) 0.5 % Drops daily. 08/29/2021 Active erythromycin (Romycin) 5 mg/gram (0.5 %) Ointment Place 1 Tube into the left eye once a week. 08/29/2021 Active amLODIPine (Norvasc) 10 mg Tablet Take 0.5 tablets by mouth daily. Amlodipine (Hold if SBP<120) 11/18/2021 Active Additional Information Patient not taking.Reported on 03/12/2024 carvediloL (Coreg) 25 mg Tablet Take 1 tablet by mouth 2 times daily (with meals). Carvedilol (hold for SBP <110, Hr <60) 11/18/2021 Active Additional Information Patient taking differently:25 mg OralDAILY, Carvedilol (hold for SBP <110, Hr <60), Reported on 01/22/2024 lisinopriL (Zestril) 40 mg Tablet Take 1 tablet by mouth daily. Lisinopril (hold for SBP <130) 11/18/2021 Active omega 6-hsr-qsm-fish oil 250-350-1,000 mg Capsule Take 1,000 mg by mouth. 07/18/2021 Active omeprazole (PriLOSEC) [address] capsule Take 20 mg by mouth daily. 05/20/2023 Active Insulin Tresiba FlexTouch U-100 100 unit/mL (3 mL) Insulin Pen 26 units once daily. 06/22/2023 Active chlorthalidone (Hygroton) 25 mg tablet Take 25 mg by mouth daily. Active Insulin Fiasp FlexTouch U-100 100 unit/mL (3 mL) Insulin Pen Inject 3 mLs subcutaneously 4 times daily. 3-18 units. 07/01/2023 Active tamsulosin (Flomax) 0.4 mg capsuleIndication s:Malignant neoplasm of prostate Take 1 capsule by mouth nightly. 30 capsule 11 08/20/2023 Active rpcxsg-xjhoanef-n mylase (Creon 24) 24,000-76,000 -120,[address] capsule Take 3 per meal three times daily and 2 per snack three times daily (15 capsules/day) 450 capsule 11 10/25/2023 Active Additional Information Patient taking differently: Taking 4-6 tablets daily., Reported on 03/12/2024 Active Problems Problem Noted Date Diagnosed Date Pancreatic cancer 01/23/2024 Malignant neoplasm of head of pancreas 4 [...] s/p L JIMI, posterior, Dr. Wu, 10/10/20 08/11/2020 ASCVD (arteriosclerotic cardiovascular disease) 10/06/2020 History of carotid endarterectomy 08/18/2020 Colorectal cancer 07/22/2019 Diabetes mellitus 07/22/2019 Hypercholesterolemia 07/22/2019 Hypertension -Labile blood pressurses 07/22/2019 Encounters Date Type Department Care Team Description 03/12/2024 10:30 AM EST Clinical Support Hematology/Oncolo gy at [address] [phone] Lupe Velasquez, RD Arrived 03/12/2024 10:00 AM EST Infusion Hematology Oncology at [address] [phone] Arrived 03/12/2024 9:30 AM EST Office Visit Hematology/Oncolo gy at [address] [phone] Cl Hess MD LaRoza, Stephanie A, APRN Malignant neoplasm of head of pancreas 03/12/2024 Travel 02/27/2024 10:00 AM EST Telephone Hematology/Oncolo gy at [address] [phone] Lupe Velasquez, NATHAN 02/25/2024 1:00 PM EST TH Visit (TeleHealth) Hematology/Oncolo gy at [address] [phone] Yessi Renee APRN Malignant neoplasm of head of pancreas 02/25/2024 Telephone Hematology/Oncolo gy at [address] [phone] Jackie Driver 02/19/2024 Telephone Hematology/Oncolo gy at [address] [phone] Lupe Velasquez, NATHNA 02/18/2024 1:00 PM EST Office [place] [address] Charu Balbuena MD Exocrine pancreatic insufficiency 02/07/2024 12:30 PM EST Clinical [place] [address] Encounter for staple removal 02/07/2024 Travel 02/04/2024 10:00 AM EST Telephone Hematology/Oncolo gy at [address] [phone] Lupe Velasquez, NATHAN 02/04/2024 Telephone Hematology/Oncolo gy at [address] [phone] Tammy Hooks, RN Follow-up 02/03/2024 Telephone [place] [phone] Chen Mcdonald, RN 01/24/2024 11:59 PM EST Anesthesia Event Intermediate Special Care Unit [place] [phone] Madan Lou, AYE 01/23/2024 7:52 AM EST Anesthesia Event Main Operating Room [place] [phone] Shaheen Cody MD Jarnot, Kerry M, RN 01/23/2024 7:30 AM EST - 01/23/2024 4:55 PM EST Surgery Main Operating Room [place] [phone] Charu Balbuena MD @WHIPPLE PROCEDURE (WRVU 52.84) 01/23/2024 6:12 AM EST - 02/01/2024 12:51 PM EST Hospital Encounter Surgical Unit Level 4 [place] [address] Charu Balbuena MD Malignant neoplasm of head of pancreas (Primary Dx); ASCVD (arteriosclerotic cardiovascular disease); Hx of CABG; Malignant neoplasm of pancreas, unspecified location of malignancy Discharge Disposition: Home 01/14/2024 4:30 PM EST TH Visit (TeleHealth) Radiation Oncology at [place] [phone] Malachi Rothman MD Malignant neoplasm of prostate 01/13/2024 Telephone [place] [phone] Tracie Rodriguez, AYE 01/08/2024 Specialty Pharmacy Pharmacy at [place] [phone] Slim De La Cruz, [facility] Refill Coordination - Manual (lipase/protease/amyl ase) for Enzyme 12/31/2023 9:00 AM EDT TH Visit (TeleHealth) Radiation Oncology at [address] [phone] Ping Moore PA Malignant neoplasm of prostate (Primary Dx); S/P radiotherapy 12/18/2023 1:00 PM EDT Office Visit Hematology/Oncolo gy at [address] [phone] Lupe Velasquez, NATHAN Colorectal cancer 12/17/2023 2:30 PM EDT Office Visit General Surgery at [place] [phone] Charu Balbuena MD Malignant neoplasm of head of pancreas 12/17/2023 1:26 PM EDT - 12/17/2023 11:59 PM EDT Hospital [place] [phone] Charu Balbuena MD Malignant neoplasm of head of pancreas Discharge Disposition: Home 12/17/2023 11:54 AM EDT - 12/17/2023 1:17 PM EDT Hospital Encounter Hematology [place] [phone] Malignant neoplasm of head of pancreas Discharge Disposition: Home 12/17/2023 Travel from Last 3 Months Immunizations Name Administration Dates Next Due Covid-19 Monovalent (Moderna Spikevax) 12yrs+ (4554-3044) 01/01/2021,06/21/2020,05/20/2020 Influenza (Fluzone HD) Trivalent High Dose 11/21 Td Adult (not absorbed) 12/02/2018 Family History Medical History Relation Comments [...] drink = 0.6 oz pur e alcohol) [facility] Utilities Answer Date Recorded In [...] in a longterm (including now)? No 06/04/2023 Housing Stability Vital Sign Answer Meek e Recorded In the last 12 months, was t here a time when you were not able to pay the mortgage or rent on time? No 01/24/2024 In the past 12 months, how m any times have you moved where you were living? 0 01/24/2024 At any time in the past 12 m [facility], were you homeless or living in a longterm (including now)? No 01/24/2024 DH IPV Inpatient Questions Answer Date Recorded [...] Sign Reading Time Taken Comments Blood Pressure 106/47 03/12/2024 9:32 AM EST Pulse 70 03/12/2024 9:32 AM EST Temperature 36.1 ??C (96.9 ??F) 03/12/2024 9:32 AM ES T Respiratory Rate 18 03/12/2024 9:32 AM EST Oxygen Saturation 100% 03/12/2024 9:32 AM EST Inhaled Oxygen Concentration - - Weight 85.7 kg (189 lb) 03/12/2024 9:32 AM EST Height 175.3 cm (5' 9.02) 03/12/2024 9:32 AM ES T Body Mass Index 27.9 03/12/2024 9:32 AM EST Plan of Treatment Upcoming Encounters Date Type Department Care Team (Late st Contact Info) Description 03/24/2024 9:00 AM EST TH Visit (TeleHealth) Radiation Oncology at [address] [phone] Ping Moore PA [facility] DR [place] [address] 03/26/2024 9:30 AM EST Office Visit Hematology/Oncology at [address] [phone] Yessi Renee APRN [address] [place] [address] DR HEMATOLOGY AND ONCOLOGY [place], [place] [phone] 03/26/2024 9:30 AM EST Infusion Hematology Oncology at [address] [phone] 04/09/2024 9:30 AM EST Office Visit Hematology/Oncology at [address] [phone] Cl Hess MD [facility] [address] HEMATOLOGY AND ONCOLOGY LINE [place], [place] [phone] 04/09/2024 10:00 AM EST Infusion Hematology Oncology at [address] [phone] 04/23/2024 9:30 AM EST Office Visit Hematology/Oncology at [address] [phone] Cl Hess MD [facility] [place] [address] HEMATOLOGY [place] [address] 04/23/2024 10:00 AM EST Infusion Hematology Oncology at [address] [phone] 05/18/2024 4:30 PM EDT TH Visit (TeleHealth) [place] [address] Malachi Rothman MD [facility] [place] [address] Health Maintenance Due Date Last Done Comments DM Opthalmology Exam 01/25/1958 DM Urine Microalbumin yearly 01/25/1958 Hepatitis C Screening 01/25/1966 Pneumoccocal Vaccine: 65+ (1 of 2 - PCV) 01/25/1967 Zoster vaccine (1 of 2) 01/25/1998 Advance Directive 01/25/2003 Tetanus/Diphtheria/Pertussis Vaccines (1 - Tdap) 12/03/2018 12/02/2018 RSV Vaccine (1 - 1-dose 75+ series) 01/25/2023 Covid-19 Vaccine (4 - 2023-2 5 season) 2023 01/01/2021, 06/21/2020, 05/20/2020 Influenza (Flu) vaccine (1 o f 1 - Influenza standard series) 11/03/2023 11/21/2020 DM Hemoglobin A1c 6 month 07/22/2024 01/23/2024, DM Creatinine yearly 01/31/2025 02/01/2024, 01/31/2024, 01/30/2024, Additional history exists Lipid Screening Discontinued 07/18/2021 Medical Devices Implanted Type Area Sourcing Engineer Device Identifier Shelf Expiration Date Model / Serial / Lot Shell Acet Hip 60mm Por Ctd Multi Hole Ti [place] Gription ([id number]) (Autoreq) - [id number] Implanted:Qty: 1 on 10/10/2020 by Ismael Wu MD at [facility] IMPLANTS Left: Hip [employer] DARIAN [id number] 07/01/2030 1217-32- 060 / / [id number] Liner Acet Hip 97o72py Stnd Poly [place] Altrx ([id number]) (Autoreq) - [id number] Implanted:Qty: 1 on 10/10/2020 by Ismael Wu MD at [facility] IMPLANTS Left: Hip DAE [employer] Kaiima - DAE DARIAN [id number] 08/31/2025 1221-36- 060 / / [id number] Head Femoral Hip 36mm +1.5mm Offset 01/14 Taper Ceramic ([id number]) (Autoreq) - [id number] Implanted:Qty: 1 on 10/10/2020 by Ismael Wu MD at [facility] IMPLANTS Left: Hip DAE [employer] Kaiima - DAE DARIAN 07/01/2025 1365-36- 310 / / [id number] Stem Femoral Hip Sz 7 Prox 02/14 Taper Por Cllr High Ofst Ti (9159830) (Autoreq) - [id number] Implanted:Qty: 1 on 10/10/2020 by Ismael Wu MD at [facility] IMPLANTS Left: Hip [employer] - DAE DARIAN 08/31/2030 1010-12- 070 / / [id number] System Stent Enroute 01y37rz Rx Nit ([id number]) (Autoreq) - [id number] Implanted:Qty: 1 on 07/14/2021 by Basim Barr MD at [facility] IMPLANTS Right: [facility] [id number] 08/02/2023 -104[facility] / / [id number] Stem Femoral Hip Sz 7 Prox 02/14 Taper Por Cllr High Ofst Ti (4858852) (Autoreq) - [id number] Implanted:Qty: 1 on 11/17/2021 by Ismael Wu MD at [facility] IMPLANTS Right: Hip [employer] - DAE DARIAN [id number] 09/01/2031 1010-12- 070 / / [id number] Head Femoral Hip 36mm +8.5mm Offset 02/14 Tpr Ceramic (4943782) (Autoreq) - [id number] Implanted:Qty: 1 on 11/17/2021 by Ismael Wu MD at [facility] IMPLANTS Right: Hip [employer] - DAE DARIAN [id number] 07/01/2026 1365-36- 330 / / [id number] Shell Acet Hip 60mm Por Ctd Multi Hole Ti [place] Gription ([id number]) (Autoreq) - [id number] Implanted:Qty: 1 on 11/17/2021 by Ismael Wu MD at [facility] IMPLANTS Right: Hip [employer] - DAE DARIAN [id number] 10/01/2030 1217-32- 060 / / [id number] Liner Acet Hip 09e71zv Stnd Poly [place] Altrx ([id number]) (Autoreq) - [id number] Implanted:Qty: 1 on 11/17/2021 by Ismael Wu MD at [facility] IMPLANTS Right: Hip [employer] - DAE DARIAN [id number] 11/01/2026 1221-36- 060 / / [id number] Screw Hip Acet 6.5x25mm Ft Canc Hex Drv Ti [place] ([id number]) (Autoreq) - [id number] Implanted:Qty: 1 on 11/17/2021 by Ismael Wu MD at [facility] IMPLANTS Right: Hip [employer]ima - DAE DARIAN [id number] 10/02/2031 1217-25- 500 / / [id number] Screw Hip Acet 6.5x20mm Ft Canc Hex Drv Ti [place] ([id number]) (Autoreq) - [id number] Implanted:Qty: 1 on 11/17/2021 by Ismael Wu MD at [facility] IMPLANTS Right: Hip [employer] - DAE DARIAN [id number] 06/02/2031 1217-20- 500 / / [id number] Port Infusion 8fr Cath Power Lp Ct Plastic Dignity ([id number]) - [id number] Implanted:Qty: 1 on 07/05/2023 by Charu Balbuena MD at [facility] IMPLANTS Right: Chest Wall [employer] [place] [id number] 11/02/2027 PEQO75SJ N / / [id number] Graft Soft Tissue 0.8x8cm Square Bovine Xenosure (4148797) (Autoreq) - [id number] Implanted:Qty: 1 on 01/23/2024 by Charu Balbuena MD at [facility] IMPLANTS N/A: Pancreas [facility] - [facility] 02/28/2029 E0.8P8 / 0000 / [id number] Staple Line Reinforcement 60mm Endo Straight (3936661) - [id number] Implanted:Qty: 4 on 01/23/2024 by Charu Balbuena MD at [facility] IMPLANTS N/A: Abdomen [employer] - DAE DARIAN 04/23/2025 [id number] / / [id number] Barrier Adhesion 5x6in Amdominal-Pelvic Bioresorbable ([id number]) - [id number] Implanted:Qty: 1 on 01/23/2024 by Charu Balbuena MD at [facility] IMPLANTS N/A: Abdomen Swifto - MINAYA HEA 11/09/2026 [id number] / / [id number] Kotlik Feeding Tube 5fr Implanted:Qty: 1 on 01/23/2024 by Charu Balbuena MD at [facility] Stent N/A: Pancreas 03/03/2027 [id number] / / [id number] Description:used as pancreat ic stent Procedures Procedure Name Priority Date/Time Associated Diagnosis Comments LAB SCAN 03/02/2024 12:00 AM EST LAB SCAN 02/20/2024 12:00 AM EST LAB SCAN 02/20/2024 12:00 AM EST LAB SCAN 02/20/2024 12:00 AM EST LAB SCAN 02/20/2024 12:00 AM EST LAB SCAN 02/03/2024 12:00 AM EST POC, GLUCOSE Routine 02/01/2024 8:02 AM EST POC, GLUCOSE Routine 02/01/2024 4:18 AM EST MAGNESIUM Routine 02/01/2024 4:17 AM EST PHOSPHORUS Routine 02/01/2024 4:17 AM EST COMPREHENSIVE METABOLIC PANEL Routine 02/01/2024 4:17 AM EST CBC (WITH DIFF) Routine 02/01/2024 4:17 AM EST POC, GLUCOSE Routine 02/01/2024 12:12 AM EST HC TR PSLD, RED BLOOD CELLS, IRRADIATED STAT 01/31/2024 11:07 PM EST ASCVD (arteriosclerotic cardiovascular disease) POC, GLUCOSE Routine 01/31/2024 10:14 PM EST POC, GLUCOSE Routine 01/31/2024 8:04 PM EST POC, GLUCOSE Routine 01/31/2024 4:00 PM EST POC, GLUCOSE Routine 01/31/2024 11:30 AM EST TRANSFUSE RED BLOOD CELLS Routine 01/31/2024 10:30 AM EST ABORH RECHECK (PATIENT HISTORY FOUND) Routine 01/31/2024 8:21 AM EST TYPE AND SCREEN ([facility]/CGP/NATO) STAT 01/31/2024 8:21 AM EST POC, GLUCOSE Routine 01/31/2024 7:18 AM EST MAGNESIUM Routine 01/31/2024 5:03 AM EST PHOSPHORUS Routine 01/31/2024 5:03 AM EST COMPREHENSIVE METABOLIC PANEL Routine 01/31/2024 5:03 AM EST CBC (WITH DIFF) Routine 01/31/2024 5:03 AM EST POC, GLUCOSE Routine 01/31/2024 3:43 AM EST POC, GLUCOSE Routine 01/31/2024 12:38 AM EST LAB SCAN 01/31/2024 12:00 AM EST POC, GLUCOSE Routine 01/30/2024 7:32 PM EST POC, GLUCOSE Routine 01/30/2024 4:49 PM EST POC, GLUCOSE Routine 01/30/2024 1:46 PM EST POC, GLUCOSE Routine 01/30/2024 11:20 AM EST POC, GLUCOSE Routine 01/30/2024 7:37 AM EST POC, GLUCOSE Routine 01/30/2024 3:49 AM EST MAGNESIUM Routine 01/30/2024 3:39 AM EST PHOSPHORUS Routine 01/30/2024 3:39 AM EST COMPREHENSIVE METABOLIC PANEL Routine 01/30/2024 3:39 AM EST CBC (WITH DIFF) Routine 01/30/2024 3:39 AM EST POC, GLUCOSE Routine 01/29/2024 11:22 PM EST POC, GLUCOSE Routine 01/29/2024 7:41 PM EST POC, GLUCOSE Routine 01/29/2024 3:55 PM EST POC, GLUCOSE Routine 01/29/2024 12:01 PM EST POC, GLUCOSE Routine 01/29/2024 7:59 AM EST POC, GLUCOSE Routine 01/29/2024 4:10 AM EST MAGNESIUM Routine 01/29/2024 3:56 AM EST PHOSPHORUS Routine 01/29/2024 3:56 AM EST COMPREHENSIVE METABOLIC PANEL Routine 01/29/2024 3:56 AM EST CBC (WITH DIFF) Routine 01/29/2024 3:56 AM EST POC, GLUCOSE Routine 01/28/2024 11:21 PM EST SCAN DOC: TELEMETRY STRIPS 01/28/2024 10:50 PM EST SCAN DOC: TELEMETRY STRIPS 01/28/2024 10:50 PM EST HEMOGRAM Routine 01/28/2024 8:52 PM EST POC, GLUCOSE Routine 01/28/2024 7:30 PM EST SCAN DOC: TELEMETRY STRIPS 01/28/2024 7:22 PM EST POC, GLUCOSE Routine 01/28/2024 3:43 PM EST SCAN DOC: TELEMETRY STRIPS 01/28/2024 1:20 PM EST CBC (WITH DIFF) STAT 01/28/2024 1:04 PM EST POC, GLUCOSE Routine 01/28/2024 12:08 PM EST POC, GLUCOSE Routine 01/28/2024 7:52 AM EST POC, GLUCOSE Routine 01/28/2024 3:53 AM EST AMYLASE Routine 01/28/2024 3:39 AM EST MAGNESIUM Routine 01/28/2024 3:39 AM EST PHOSPHORUS Routine 01/28/2024 3:39 AM EST COMPREHENSIVE METABOLIC PANEL Routine 01/28/2024 3:39 AM EST CBC (WITH DIFF) Routine 01/28/2024 3:39 AM EST POC, GLUCOSE Routine 01/27/2024 11:52 PM EST TROPONIN-T, HIGH SENSITIVITY 1 HOUR PERFORMABLE YASSINE 01/27/2024 8:24 PM EST POC, GLUCOSE Routine 01/27/2024 7:34 PM EST PHOSPHORUS STAT Add-On 01/27/2024 7:13 PM EST MAGNESIUM STAT Add-On 01/27/2024 7:13 PM EST BASIC METABOLIC PANEL STAT Add-On 01/27/2024 7:13 PM EST TROPONIN-T, HIGH SENSITIVITY INITIAL PERFORMABLE STAT 01/27/2024 7:13 PM EST TROPONIN - SERIES STAT 01/27/2024 7:1 3 PM EST EKG 12-LEAD STAT 01/27/2024 6:57 PM EST ASCVD (arteriosclerotic cardiovascular disease) Hx of CABG POC, GLUCOSE Routine 01/27/2024 3:42 PM EST AMYLASE LEVEL BODY FLUID Routine 01/27/2024 3:16 PM EST POC, GLUCOSE Routine 01/27/2024 12:09 PM EST SCAN DOC: TELEMETRY STRIPS 01/27/2024 8:32 AM EST TRIGLYCERIDE LEVEL BODY FLUID Routine 01/27/2024 8:27 AM EST POC, GLUCOSE Routine 01/27/2024 7:[address] ABDOMEN AND PELVIS WWO CONTRAST (GI BLEED) STAT 01/27/2024 3:55 AM EST ABORH RECHECK (PATIENT HISTORY FOUND) Routine 01/27/2024 3:15 AM EST TYPE AND SCREEN ([facility]/CGP/NATO) STAT 01/27/2024 3:15 AM EST POC, GLUCOSE Routine 01/27/2024 3:11 AM EST TRIGLYCERIDE Add-On 01/27/2024 12:48 AM EST AMYLASE Routine 01/27/2024 12:48 AM EST MAGNESIUM Routine 01/27/2024 12:48 AM EST PHOSPHORUS Routine 01/27/2024 12:48 AM EST COMPREHENSIVE METABOLIC PANEL Routine 01/27/2024 12:48 AM EST CBC (WITH DIFF) Routine 01/27/2024 12:48 AM EST POC, GLUCOSE Routine 01/27/2024 12:36 AM EST POC, GLUCOSE Routine 2024 8:03 PM EST POC, GLUCOSE Routine 2024 4:14 PM EST AMYLASE LEVEL BODY FLUID Routine 2024 1:04 PM EST POC, GLUCOSE Routine 2024 11:40 AM EST SCAN DOC: TELEMETRY STRIPS 2024 10:42 AM EST POC, GLUCOSE Routine 2024 8:20 AM EST POC, GLUCOSE Routine 2024 5:04 AM EST POC, GLUCOSE Routine 2024 12:24 AM EST AMYLASE Routine 2024 12:22 AM EST MAGNESIUM Routine 2024 12:22 AM EST PHOSPHORUS Routine 2024 12:22 AM EST COMPREHENSIVE METABOLIC PANEL Routine 2024 12:22 AM EST CBC (WITH DIFF) Routine 2024 12:22 AM EST POC, GLUCOSE Routine 01/25/2024 8:19 PM EST POC, GLUCOSE Routine 01/25/2024 4:13 PM EST AMYLASE LEVEL BODY FLUID Routine 01/25/2024 2:15 PM EST POC, GLUCOSE Routine 01/25/2024 11:42 AM EST POC, GLUCOSE Routine 01/25/2024 8:20 AM EST SCAN DOC: TELEMETRY STRIPS 01/25/2024 7:38 AM EST GOLD TUBE HOLD STAT 01/25/2024 6:52 AM EST POTASSIUM Routine 01/25/2024 6:52 AM EST ALANINE AMINOTRANSFERASE Routine 01/25/2024 6:52 AM EST ASPARTATE AMINOTRANSFERASE Routine 01/25/2024 6:52 AM EST POC, GLUCOSE Routine 01/25/2024 3:18 AM EST AMYLASE Routine 01/25/2024 12:28 AM EST MAGNESIUM Routine 01/25/2024 12:28 AM EST PHOSPHORUS Routine 01/25/2024 12:28 AM EST COMPREHENSIVE METABOLIC PANEL Routine 01/25/2024 12:28 AM EST CBC (WITH DIFF) Routine 01/25/2024 12:28 AM EST POC, GLUCOSE Routine 01/25/2024 12:05 AM EST EKG 12-LEAD STAT 01/24/2024 9:38 PM EST ASCVD (arteriosclerotic cardiovascular disease) Hx of CABG SCAN DOC: TELEMETRY STRIPS 01/24/2024 8:07 PM EST POC, GLUCOSE Routine 01/24/2024 7:33 PM EST POC, GLUCOSE Routine 01/24/2024 3:49 PM EST AMYLASE LEVEL BODY FLUID Routine 01/24/2024 1:48 PM EST POC, GLUCOSE Routine 01/24/2024 12:08 PM EST POC, GLUCOSE Routine 01/24/2024 9:07 AM EST POC, GLUCOSE Routine 01/24/2024 8:36 AM EST POC, GLUCOSE Routine 01/24/2024 8:07 AM EST SCAN DOC: TELEMETRY STRIPS 01/24/2024 7:37 AM EST POC, GLUCOSE Routine 01/24/2024 6:08 AM EST HC TR PSLD, RED BLOOD CELLS, IRRADIATED Routine 01/24/2024 4:07 AM EST ASCVD (arteriosclerotic cardiovascular disease) POC, GLUCOSE Routine 01/24/2024 4:01 AM EST HC TR PSLD, RED BLOOD CELLS, IRRADIATED STAT 01/24/2024 2:07 AM EST ASCVD (arteriosclerotic cardiovascular disease) POC, GLUCOSE Routine 01/24/2024 1:40 AM EST POC, GLUCOSE Routine 01/24/2024 12:10 AM EST AMYLASE Routine 01/24/2024 12:01 AM EST MAGNESIUM Routine 01/24/2024 12:01 AM EST PHOSPHORUS Routine 01/24/2024 12:01 AM EST COMPREHENSIVE METABOLIC PANEL Routine 01/24/2024 12:01 AM EST CBC (WITH DIFF) Routine 01/24/2024 12:01 AM EST SCAN DOC: TELEMETRY STRIPS 01/23/2024 9:23 PM EST BLOOD GAS ARTERIAL POC Routine 6:59 PM EST POC, GLUCOSE Routine 01/23/2024 6:56 PM EST SCAN DOC: TELEMETRY STRIPS 01/23/2024 5:20 PM EST SCAN DOC: TELEMETRY STRIPS 01/23/2024 5:20 PM EST PROTHROMBIN TIME STAT 01/23/2024 5:06 PM EST PHOSPHORUS STAT 01/23/2024 5:06 PM EST MAGNESIUM STAT 01/23/2024 5:06 PM EST FIBRINOGEN STAT 01/23/2024 5:06 PM EST HC PARTIAL THROMBOPLASTIN TIME Routine 01/23/2024 5:06 PM EST COMPREHENSIVE METABOLIC PANEL STAT 01/23/2024 5:06 PM EST CBC (WITH DIFF) STAT 01/23/2024 5:06 PM EST HEMOGLOBIN A1C STAT 01/23/2024 5:06 PM EST POC, GLUCOSE Routine 01/23/2024 5:02 PM EST BLOOD GAS ARTERIAL POC Routine 3:20 PM EST BLOOD GAS ARTERIAL POC Routine 2:04 PM EST BLOOD GAS ARTERIAL POC Routine 12:34 PM EST POC, GLUCOSE Routine 01/23/2024 11:47 AM EST SURGICAL PATHOLOGY Routine 01/23/2024 11:16 AM EST ANAEROBIC CULTURE Routine 01/23/2024 10:54 AM EST TISSUE CULTURE Routine 01/23/2024 10:54 AM EST TISSUE CULTURE, AEROBIC & ANAEROBIC Routine 01/23/2024 10:54 AM EST BLOOD GAS ARTERIAL POC Routine 10:43 AM EST POC, GLUCOSE Routine 01/23/2024 9:27 AM EST ABORH RECHECK (PATIENT HISTORY FOUND) Routine 01/23/2024 8:51 AM EST [place] AND S[place]EN [place] [place] Routine 01/23/2024 8:51 AM EST BLOOD GAS ARTERIAL POC Routine 8:28 AM EST Omental Flap, Intra-Abdominal ([id number]) 01/23/2024 7:52 AM EST [facility] Unlisted Procedure Vascular Surgery ([id number]) 01/23/2024 7:52 AM EST [facility] Part Remv Panc, Prox+Remv Duod+Anast ([id number]) 01/23/2024 7:52 AM EST [facility] XR FLUORO NO RAD <1HR - OR USE Routine 01/23/2024 7:50 AM EST [id number] ONLY Routine 7:22 AM EST POC, GLUCOSE Routine 01/23/2024 6:58 AM EST LAB SCAN 01/20/2024 12:00 AM EST LAB SCAN 01/20/2024 12:00 AM EST LAB SCAN 01/20/2024 12:00 AM EST LAB SCAN 01/09/2024 12:00 AM EST LAB SCAN 01/09/2024 12:00 AM EST LAB SCAN 01/09/2024 12:00 AM EST LAB SCAN 01/09/2024 12:00 AM EST LAB SCAN 12/26/2023 12:00 AM EDT LAB SCAN 12/26/2023 12:00 AM EDT LAB SCAN 12/26/2023 12:00 AM EDT LAB SCAN 12/26/2023 12:[address] CHEST ABDOMEN PELVIS W CONTRAST (GENERIC) Routine 12/17/2023 2:09 PM EDT Malignant neoplasm of head of pancreas CARBOHYDRATE ANTIGEN 19-9 Routine 12/17/2023 12:18 PM EDT Malignant neoplasm of head of pancreas COMPREHENSIVE METABOLIC PANEL Routine 12/17/2023 12:18 PM EDT Malignant neoplasm of head of pancreas CBC (WITH DIFF) Routine 12/17/2023 12:18 PM EDT Malignant neoplasm of head of pancreas LAB SCAN 12/12/2023 12:00 AM EDT LAB SCAN 12/12/2023 12:00 AM EDT LAB SCAN 12/12/2023 12:00 AM EDT LAB SCAN 12/12/2023 12:00 AM EDT LIPID PANEL (REFLEX DIRECT LDL) Routine 07/18/2021 8:33 PM EDT from Last 3 Months or Most Recently Relevant to Health Maintenance Results * Scan Doc: Lab (03/02/2024 12:00 AM EST) Only the most recent of22 resultswithin the time period is included. Narrative 03/02/2024 12:00 AM EST Ordered by an unspecified provider. Scanning Provider MEDIA MGR SCAN EXT O RDR/RSLT * Transfuse RBC (02/01/2024 9:38 AM EST) Charu Balbuena MD NURSING TREATMENT ORDERABLES - BLOOD ADMIN * POC, GLUCOSE (02/01/2024 8:02 AM EST) Only the most recent of62 resultswithin the time period is included. Glucometer, POC 189 65 - 199 mg/dL 02/01/2024 8:02 AM [facility] Comment:Supplemental ranges: <140 mg/dL before meals <180 mg/dL all other times of the day. Blood CAPILLARY BLOOD / Unknown 02/01/2024 8:02 AM EST 02/01/2024 8:03 AM EST Charu Balbuena MD POINT OF CARE TEST ORDERABLES [facility] [place] [place] [address] * (ABNORMAL) CBC (with Diff) (02/01/2024 4:17 AM EST) Only the most recent of12 resultswithin the time period is included. White Blood Cell 6.27 4.00 - 9.50 x10(3)/mc L 02/01/2024 4:35 AM EST [facility] Red Blood Cell 2.98(L) 4.58 - 5.54 x10(6)/mc L 02/01/2024 4:35 AM EST [facility] Hemoglobin 9.2(L) 13.7 - 16.5 g/dL 02/01/2024 4:35 AM [facility] Hematocrit 27.5(L) 40.5 - 48.5 % 02/01/2024 4:35 AM [facility] Mean Cell Volume 92.3 82.9 - 93.1 fL 02/01/2024 4:35 AM [facility] Mean Cell Hemoglobin 30.9 27.5 - 32.1 pg 02/01/2024 4:35 AM [facility] Mean Cell Hemoglobin Concentration 33.5 32.0 - 35.7 g/dL 02/01/2024 4:35 AM [facility] Platelet 289 145 - 357 x10(3)/mc L 02/01/2024 4:35 AM [facility] Mean Platelet Volume 8.8 7.6 - 12.9 fL 02/01/2024 4:35 AM [facility] RDW Standard Deviation 48.6(H) 36.0 - 45.0 fL 02/01/2024 4:35 AM [facility] RDW coefficient of variation 14.5(H) 11.4 - 13.8 % 02/01/2024 4:35 AM [facility] NRBC% auto 0.0 % 02/01/2024 4:35 AM [facility] NRBC Absolute <0.01 <0.01 x10(3)/mc L 02/01/2024 4:35 AM [facility] Neutrophil % 73.4 % 02/01/2024 4:35 AM [facility] Neutrophil Absolute (ANC) - Automated 4.61 1.70 - 6.10 x10(3)/mc L 02/01/2024 4:35 AM [facility] Lymph % 11.2 % 02/01/2024 4:35 AM [facility] Lymph Absolute 0.70(L) 0.90 - 3.20 x10(3)/mc L 02/01/2024 4:35 AM [facility] Monocyte % 9.1 % 02/01/2024 4:35 AM [facility] Monocyte Absolute 0.57 0.30 - 0.90 x10(3)/mc L 02/01/2024 4:35 AM [facility] Eos % 4.8 % 02/01/2024 4:35 AM [facility] Eos Absolute 0.30 0.00 - 0.40 x10(3)/mc L 02/01/2024 4:35 AM [facility] Basophil % 0.2 % 02/01/2024 4:35 AM [facility] Baso Absolute <0.04 0.00 - 0.10 x10(3)/mc L 02/01/2024 4:35 AM [facility] Immature Gran % 1.3 % 4:35 AM [facility] Immature Gran Absolute 0.08(H) 0.00 - 0.04 x10(3)/mc L 02/01/2024 4:35 AM [facility] Blood VENOUS BLOOD SPECIMEN / Unknown Venipuncture / Unknown 02/01/2024 4:17 AM EST 02/01/2024 4:29 AM EST Charu Balbuena MD HEMATOLOGY ORDERAB LES [facility] [place] [place] [address] * Phosphorus (02/01/2024 4:17 AM EST) Only the most recent of11 resultswithin the time period is included. Phosphorus 3.8 2.5 - 4.5 mg/dL 02/01/2024 4:58 AM [facility] Blood VENOUS BLOOD SPECIMEN / Unknown Venipuncture / Unknown 02/01/2024 4:17 AM EST 02/01/2024 4:28 AM EST Charu Balbuena MD CHEMISTRY ORDERABL ES Performing Organization Address City/[facility]/ZIP Co de Phone Number [facility] [place] [place] [address] * Magnesium (02/01/2024 4:17 AM EST) Only the most recent of11 resultswithin the time period is included. Magnesium 0.98 0.69 - 1.07 mMol/L 02/01/2024 4:58 AM [facility] Blood VENOUS BLOOD SPECIMEN / Unknown Venipuncture / Unknown 02/01/2024 4:17 AM EST 02/01/2024 4:28 AM EST Charu Balbuena MD CHEMISTRY ORDERABL ES Performing Organization Address [facility]/ZIP Co de Phone Number [facility] [place] [address] * (ABNORMAL) Comprehensive metabolic panel (02/01/2024 4:17 AM EST) Only the most recent of11 resultswithin the time period is included. Glucose 151 65 - 199 mg/dL 02/01/2024 4:58 AM [facility] Comment:Glucose Concentratio n >=200 mg/dL plus symptoms is consistent with Diabetes Mellitus. Blood Urea Nitrogen 20 10 - 20 mg/dL 02/01/2024 4:58 AM [facility] Creatinine 0.71(L) 0.80 - 1.50 mg/dL 02/01/2024 4:58 AM [facility] Sodium 133(L) 135 - 145 mMol/L 02/01/2024 4:58 AM [facility] Potassium 4.3 3.5 - 5.0 mMol/L 02/01/2024 4:58 AM [facility] Chloride 98 98 - 107 mMol/L 02/01/2024 4:58 AM [facility] Carbon Dioxide 27 22 - 31 mMol/L 02/01/2024 4:58 AM [facility] Anion Gap 8 5 - 15 mMol/L 02/01/2024 4:58 AM [facility] Calcium 8.7 8.5 - 10.5 mg/dL 02/01/2024 4:58 AM [facility] Protein, Total 6.0(L) 6.1 - 8.0 g/dL 02/01/2024 4:58 AM [facility] Albumin 3.3 3.2 - 5.2 g/dL 02/01/2024 4:58 AM EST [facility] Aspartate Aminotransferase 28 <=39 unit/L 02/01/2024 4:58 AM [facility] Alanine Aminotransferase 39 0 - 55 unit/L 02/01/2024 4:58 AM [facility] Alkaline Phosphatase 151(H) 40 - 130 unit/L 02/01/2024 4:58 AM [facility] Bilirubin, Total 1.1 <=1.3 mg/dL 02/01/2024 4:58 AM [facility] Est Glomerular Filtration Rate - Male 95 mL/min/1. 73 m?? 02/01/2024 4:58 AM [facility] Comment: This patient's estimated GFR was [...] urine creatinine clearance. Assignment of CKD stage 1 - 5 for patients with an eGFR near the transition point between stages may be based on clinical assessment of muscle mass and symptoms in addition to eGFR. Link: eGFR Calculator [employer] Blood VENOUS BLOOD SPECIMEN / Unknown Venipuncture / Unknown 02/01/2024 4:17 AM EST 02/01/2024 4:28 AM EST Charu Balbuena MD CHEMISTRY ORDERABL ES [facility] [place] [address] * Prepare RBC (01/31/2024 11:07 PM EST) Only the most recent of3 resultswithin the time period is included. Status Information Transfused [facility] Product Identification RBC [facility] Unit Number [id number] [facility] Product [facility] U0889U00 [facility] Unit Blood Type OPOS [facility] Specimen Expiration Date [facility] [address] [facility] Issue Date / Time [facility] Blood 01/31/2024 8:1 0 AM EST Charu Balbuena MD BLOOD BANK PRODUCT ORDERABLES [facility] [place] [address] * ABORH RECHECK (PATIENT HISTORY FOUND) (01/31/2024 8:21 AM EST) Only the most recent of3 resultswithin the time period is included. ABORH Recheck Progress Complete 01/31/2024 10:01 AM EST [facility] Blood VENOUS BLOOD SPECIMEN / Unknown Venipuncture / Unknown 01/31/2024 8:21 AM EST 01/31/2024 8:31 AM EST Charu Balbuena MD BLOOD BANK LAB ORD ERABLES [facility] [place] [address] * Type and screen ([facility] (01/31/2024 8:21 AM EST) Only the most recent of3 resultswithin the time period is included. ABORH Type O POSITIVE 01/31/2024 9:20 AM EST [facility] PATIENT HISTORY Found 01/31/2024 9:20 AM EST [facility] Expires at [id number] on: 02-03-2024 01/31/2024 9:20 AM EST [facility] ANTIBODY SCREEN AUTOMATED Negative 01/31/2024 9:20 AM EST [facility] T&S only valid at [facility] 01/31/2024 9:20 AM EST [facility] Blood VENOUS BLOOD SPECIMEN / Unknown Venipuncture / Unknown 01/31/2024 8:21 AM EST 01/31/2024 8:31 AM EST Narrative [facility] - 01/31/2024 9:20 AM EST This Type and Screen result is only valid at the [facility] Charu Balbuena MD BLOOD BANK LAB ORD ERABLES [facility] [place] [address] * Scan Doc: Telemetry Strips (01/28/2024 10:50 PM EST) Only the most recent of12 resultswithin the time period is included. Narrative 01/28/2024 10:50 PM EST Ordered by an unspecified provider. Scanning Provider MEDIA MGR SCAN EXT O RDR/RSLT * (ABNORMAL) Hemogram (01/28/2024 8:52 PM EST) White Blood Cell 7.33 4.00 - 9.50 x10(3)/mc L 01/28/2024 9:06 PM [facility] Red Blood Cell 2.63(L) 4.58 - 5.54 x10(6)/mc L 01/28/2024 9:06 PM [facility] Hemoglobin 8.2(L) 13.7 - 16.5 g/dL 01/28/2024 9:06 PM [facility] Hematocrit 24.3(L) 40.5 - 48.5 % 01/28/2024 9:06 PM [facility] Mean Cell Volume 92.4 82.9 - 93.1 fL 01/28/2024 9:06 PM [facility] Mean Cell Hemoglobin 31.2 27.5 - 32.1 pg 01/28/2024 9:06 PM [facility] Mean Cell Hemoglobin Concentration 33.7 32.0 - 35.7 g/dL 01/28/2024 9:06 PM [facility] Platelet 175 145 - 357 x10(3)/mc L 01/28/2024 9:06 PM [facility] Mean Platelet Volume 8.9 7.6 - 12.9 fL 01/28/2024 9:06 PM [facility] RDW Standard Deviation 49.1(H) 36.0 - 45.0 fL 01/28/2024 9:06 PM [facility] RDW coefficient of variation 14.5(H) 11.4 - 13.8 % 01/28/2024 9:06 PM [facility] NRBC% auto 0.0 % 01/28/2024 9:06 PM [facility] NRBC Absolute <0.01 <0.01 x10(3)/mc L 01/28/2024 9:06 PM [facility] Blood VENOUS BLOOD SPECIMEN / Unknown Venipuncture / Unknown 01/28/2024 8:52 PM EST 01/28/2024 9:02 PM EST Charu Balbuena MD [place] [address] * (ABNORMAL) Amylase (01/28/2024 3:39 AM EST) Only the most recent of5 resultswithin the time period is included. Amylase 9(L) 28 - 100 unit/L 01/28/2024 4:13 AM EST [facility] Blood VENOUS BLOOD SPECIMEN / Unknown Venipuncture / Unknown 01/28/2024 3:39 AM EST 01/28/2024 3:43 AM EST Charu Balbuena MD CHEMISTRY ORDERABL ES [facility] [place] [address] * Troponin-T, High Sensitivity 1 Hour (01/27/2024 8:24 PM EST) Pathologist [facility] Troponin-T, High Sensitivity 17 <=22 ng/L 01/27/2024 9:01 PM EST [facility] Comment: This patient's troponin T concentration was determined using the Danni 5th Generation troponin T assay. According to the fourth universal definition of myocardial infarction, the term acute myocardial infarction should be used when there is acute myocardial injury with clinical evidence of acute myocardial ischemia and with detection of a rise and/or fall of cardiac troponin values with at least one value above the 99th percentile and at least one of the following: - Symptoms of myocardial ischemia; - New ischemic ECG changes; - Development of pathological Q waves; - Imaging evidence of new loss of viable myocardium or new regional wall motion ?? abnormality in a pattern consistent with an ischemic etiology; - Identification of a coronary thrombus by angiography or autopsy (not for type 2 or 3 ?? MIs) Serial measurement of troponin and the change in troponin concentration over time (delta) is crucial for the diagnosis of acute myocardial infarction. Guidance on the interpretation of the new 5th Generation Troponin T values and the delta troponin value can be found in the [facility] Test Catalog Troponin - [email or web address]/catalogs/565/files/44332 Reference: Fourth [place] Definition of Myocardial Infarction. Journal of the [employer] [place] [employer] 2018;72:1238-2037 Troponin-T, HS 1 hr delta 1 ng/L 01/27/2024 9:01 PM EST [facility] Comment:The 1 hour Troponin T delta value is the absolute difference between the Troponin T concentrations of the initial and subsequent sample collected between 45 - 120 minutes following the initial collection. Blood VENOUS BLOOD SPECIMEN / Unknown Venipuncture / Unknown 01/27/2024 8:24 PM EST 01/27/2024 8:31 PM EST Charu Balbuena MD CHEMISTRY ORDERABL ES [facility] [place] [place] [address] * Troponin-T, High Sensitivity (01/27/2024 7:13 PM EST) Troponin-T, High Sensitivity Initial 18 <=22 ng/L 01/27/2024 7:57 PM EST [facility] Comment: This patient's troponin T concentration was determined using the Danni 5th Generation troponin T assay. The 99th percentile for Troponin T for this test is 14 ng/L for females, and 22 ng/L for males. According to the fourth universal definition of myocardial infarction, the term acute myocardial infarction should be used when there is acute myocardial injury with clinical evidence of acute myocardial ischemia and with detection of a rise and/or fall of cardiac troponin values with at least one value above the 99th percentile and at least one of the following: - Symptoms of myocardial ischemia; - New ischemic ECG changes; - Development of pathological Q waves; - Imaging evidence of new loss of viable myocardium or new regional wall motion ?? abnormality in a pattern consistent with an ischemic etiology; - Identification of a coronary thrombus by angiography or autopsy (not for type 2 or 3 ?? MIs) Serial measurement of troponin and the change in troponin concentration over time (delta) is crucial for the diagnosis of acute myocardial infarction. Guidance on the interpretation of the new 5th Generation Troponin T values and the delta troponin value can be found in the [facility] Test Catalog Troponin - [email or web address]/catalogs/565/files/68193 Reference: Fourth [place] Definition of Myocardial Infarction. Journal of the [employer] [place] College of [employer]iology 2018;72:1926-9999 Blood VENOUS BLOOD SPECIMEN / Unknown Venipuncture / Unknown 01/27/2024 7:13 PM EST 01/27/2024 7:16 PM EST Charu Balbuena MD CHEMISTRY ORDERABL ES [facility] [place] [address] * (ABNORMAL) Basic Metabolic Panel (01/27/2024 7:13 PM EST) Glucose 202(H) 65 - 199 mg/dL 01/27/2024 7:57 PM EST [facility] Comment:Glucose Concentratio n >=200 mg/dL plus symptoms is consistent with Diabetes Mellitus. Blood Urea Nitrogen 9(L) 10 - 20 mg/dL 01/27/2024 7:57 PM [facility] Creatinine 0.50(L) 0.80 - 1.50 mg/dL 01/27/2024 7:57 PM [facility] Sodium 135 135 - 145 mMol/L 01/27/2024 7:57 PM [facility] Potassium 3.6 3.5 - 5.0 mMol/L 01/27/2024 7:57 PM [facility] Chloride 100 98 - 107 mMol/L 01/27/2024 7:57 PM [facility] Carbon Dioxide 30 22 - 31 mMol/L 01/27/2024 7:57 PM [facility] Anion Gap 5 5 - 15 mMol/L 01/27/2024 7:57 PM [facility] Calcium 8.1(L) 8.5 - 10.5 mg/dL 01/27/2024 7:57 PM [facility] Est Glomerular Filtration Rate - Male 106 mL/min/1. 73 m?? 01/27/2024 7:57 PM [facility] Comment: This patient's estimated GFR was [...] urine creatinine clearance. Assignment of CKD stage 1 - 5 for patients with an eGFR near the transition point between stages may be based on clinical assessment of muscle mass and symptoms in addition to eGFR. Link: eGFR Calculator [employer] Blood VENOUS BLOOD SPECIMEN / Unknown Venipuncture / Unknown 01/27/2024 7:13 PM EST 01/27/2024 7:16 PM EST Charu Balbuena MD CHEMISTRY ORDERABL ES [facility] [place] [address] * EKG 12 Lead (01/27/2024 6:57 PM EST) Only the most recent of2 resultswithin the time period is included. Ventricular rate 89 BPM MUSE SYSTEM Atrial Rate 89 BPM MUSE SYSTEM P-R Interval 168 ms MUSE SYSTEM QRS Duration 112 ms MUSE SYSTEM Q-T Interval 376 ms MUSE SYSTEM QTC Calculated (Bezet) 457 ms MUSE SYSTEM Calculated P [place] 43 degrees MUSE SYSTEM Calculated R [place] -17 degrees MUSE SYSTEM Calculated T [place] 11 degrees MUSE SYSTEM INTERPRETATION Sinus rhythm with Premature supraventricular complexes Right bundle branch block Abnormal ECG When compared with ECG of 24-JAN-2024 21:38, Premature supraventricular complexes are now Present Right bundle branch block is now Present Confirmed by MD Tej, Dionisio ([id number]) on 01/28/2024 1:19:34 PM MUSE SYSTEM 01/27/2024 6:57 PM EST 01/28/2024 1:19 PM EST Charu Balbuena MD ECG ORDERABLES Performing Organization Address City/[facility]/ZIP Co de Phone Number MUSE SYSTEM * Amylase Level Body Fluid (01/27/2024 3:16 PM EST) Only the most recent of4 resultswithin the time period is included. Amylase, Fluid <3 unit/L 01/27/2024 4:17 PM EST [facility] Comment: Reference intervals are unavailable for this test in body fluids. Comparison of this result with the concentration in blood serum or plasma is recommended. This test has not been cleared by the [place] FDA. Performance characteristics of this test for the analysis of body fluids were determined by [facility] in accordance with CLIA requirements. This laboratory is qualified under CLIA to perform high-complexity testing. Reference intervals are unavailable for this test in body fluids. Comparison of this result with the concentration in blood serum or plasma is recommended. This test has not been cleared by the [place] FDA. Performance characteristics of this test for the analysis of body fluids were determined by [facility] in accordance with CLIA requirements. This laboratory is qualified under CLIA to perform high-complexity testing. Body Fluid Source Pietro Page 01/27/2024 4:17 PM EST [facility] Body Fluid PIETRO - PAGE DRAIN / Unknown Non Blood Collection / Unknown 01/27/2024 3:16 PM EST 01/27/2024 3:27 PM EST Charu Balbuena MD BODY FLUIDS AND ST OOLS ORDERABLES Performing Organization Address [facility]/ZIP Co de Phone Number [facility] [place] [address] * Triglyceride Level Body Fluid (01/27/2024 8:27 AM EST) Triglyceride, Fluid 48 mg/dL 01/26 9:29 AM EST [facility] Comment:Reference intervals are unavailable for this test in body fluids. Comparison of this result with the concentration in blood serum or plasma is recommended. This test has not been cleared by the [place] FDA. Performance characteristics of this test for the analysis of body fluids were determined by [facility] in accordance with CLIA requirements. This laboratory is qualified under CLIA to perform high-complexity testing. Body Fluid Source Pietro Page 01/27/2024 9:29 AM EST [facility] Body Fluid PIET[place] - PAGE DRAIN / Unknown Non Blood Collection / Unknown 01/27/2024 8:27 AM EST 01/27/2024 8:45 AM EST Charu Balbuena MD BODY FLUIDS AND ST OOLS ORDERABLES Performing Organization Address City/[facility]/ZIP Co de Phone Number [facility] [place] [address] * CT Abdomen & Pelvis wwo Contrast (GI BLEED) (01/27/2024 3:55 AM EST) WORKSTATION ID [id number] RAD Anatomical Region Laterality Modality Abdomen, Pelvis Computed Tomogra phy Impressions 01/27/2024 4:43 AM EST * ??Moderate pneumoperitoneum, may be more so than expected 4 days postop. * ??Small to moderate volume scattered abdominopelvic free fluid. * ??Extensive edema/fluid in the region of the sarbjit hepatis. * ??Suspect colitis involving the hepatic flexure. * ??No active extravasation or pseudoaneurysm identified on either portal and arterial phases. * ??Large bowel ileus. * ??Partially imaged small pleural effusions with adjacent atelectasis. * ??Nonspecific urinary bladder wall thickening, correlate for any concern of cystitis (intravesicular air may be iatrogenic). * ??Please see above for details and ancillary findings. Please note, this examination was ordered, performed, and interpreted in a STAT/emergency setting. Thank you for letting us participate in the care of this patient. ??If you are a health care provider and have any questions regarding this report, please contact the number below. ??For patients who have questions please contact the health critical care nurse that requested your imaging first. ? Narrative 01/27/2024 4:43 AM EST EXAMINATION: CT ABDOMEN AND PELVIS WWO CONTRAST (GI BLEED) CLINICAL HISTORY: POD4 after whipple. Change in drain character to sanguinous and increase in output. concern for possible pseudoaneurysm/sentinel bleed., Both portal vein and arterial. (History as entered by ordering provider in the order requisition) TECHNIQUE: CT/CTA head abdomen and pelvis (GI bleed protocol: precontrast, angiographic/arterial phase, portal venous phase) performed before and after the intravenous administration contrast, MIP reconstructions. * ??Absence of enteric contrast renders suboptimal assessment of bowel wall/lumen and surrounding soft tissue structures/viscera. COMPARISON: CT chest/abdomen and pelvis 12/17/2023 FINDINGS: Included Lower Chest: Partially imaged small pleural effusions with bibasilar dependent/passive atelectasis. Liver: Small hypodense focus at the inferior most tip could be small region of injury given adjacent traversing drain. Gallbladder: Surgically absent. Biliary: Nondilated. Spleen: Unremarkable. Pancreas: Post Whipple changes. Atrophic remaining parenchyma with mild ductal prominence, and drain in place. Adrenal Glands: Unremarkable. RIGHT Kidney: Unremarkable. LEFT Kidney: Unremarkable. Urinary Bladder: Obscured by extensive streak artifact from bilateral metallic hip hardware, as is the remainder of the pelvis; however, appears thick-walled and contains small amount of air, as well as transurethral catheter present. GI: Trace fluid within the included distal most esophagus. Esophogastric tube tip within the proximal stomach, side port just beyond the GE junction. Postoperative/post-Whipple changes including gastrectomy, gastrojejunostomy, hepaticojejunostomy, pancreaticojejunostomy. Nondilated small bowel. Moderate stool burden scattered throughout the colon. Colon near-diffusely moderately air-distended, up to 5.8 cm. Thick-walled colon at the hepatic flexure. Mesentery/Peritoneum: Pneumoperitoneum, moderate amount in the upper abdomen ventrally and small amount scattered otherwise. Diffuse mesenteric edema. Moderate to severe edema and/or fluid in the region of the sarbjit hepatis. Small to moderate amount of scattered abdominopelvic free fluid. Right-sided infrahepatic approach drain terminates in the epigastric region. Vasculature: Diffuse aorto-arterial atherosclerosis. Portal vein, splenic vein, SMV appear patent. No active extravasation or pseudoaneurysm identified on either portal and arterial phases. External Soft Tissues: Mild to moderate body wall edema. Osseous Structures: No acute abnormality identified. Degenerative/spondylotic changes of the spine. Lower thoracic epidural catheter. Procedure Note Juan Montiel MD - 01/27/2024 EXAMINATION: CT ABDOMEN AND PELVIS WWO CONTRAST (GI BLEED) CLINICAL HISTORY: POD4 after whipple. Change in drain character tosanguinous and increase in output. concern for possible pseudoaneurysm/sentinelbleed., Both portal vein and arterial. (History as entered by ordering provider in the order requisition) TECHNIQUE: CT/CTA head abdomen and pelvis (GI bleed protocol:precontrast, angiographic/arterial phase, portal venous phase) performed before andafter the intravenous administration contrast, MIP reconstructions. * Absence of enteric contrast renders suboptimal assessment of bowelwall/lumen and surrounding soft tissue structures/viscera. COMPARISON: CT chest/abdomen and pelvis 12/17/2023 FINDINGS: Included Lower Chest: Partially imaged small pleural effusions withbibasilar dependent/passive atelectasis. Liver: Small hypodense focus at the inferior most tip could be smallregion of injury given adjacent traversing drain. Gallbladder: Surgically absent. Biliary: Nondilated. Spleen: Unremarkable. Pancreas: Post Whipple changes. Atrophic remaining parenchyma with mildductal prominence, and drain in place. Adrenal Glands: Unremarkable. RIGHT Kidney: Unremarkable. LEFT Kidney: Unremarkable. Urinary Bladder: Obscured by extensive streak artifact from bilateralmetallic hip hardware, as is the remainder of the pelvis; however, appearsthick-walled and contains small amount of air, as well as transurethral catheterpresent. GI: Trace fluid within the included distal most esophagus. Esophogastrictube tip within the proximal stomach, side port just beyond the GE junction. Postoperative/post-Whipple changes including gastrectomy,gastrojejunostomy, hepaticojejunostomy, pancreaticojejunostomy. Nondilated small bowel.Moderate stool burden scattered throughout the colon. Colon near-diffuselymoderately air-distended, up to 5.8 cm. Thick-walled colon at the hepatic flexure. Mesentery/Peritoneum: Pneumoperitoneum, moderate amount in the upperabdomen ventrally and small amount scattered otherwise. Diffuse mesentericedema. Moderate to severe edema and/or fluid in the region of the sarbjit hepatis.Small to moderate amount of scattered abdominopelvic free fluid. Right-sided infrahepatic approach drain terminates in the epigastric region. Vasculature: Diffuse aorto-arterial atherosclerosis. Portal vein, splenicvein, SMV appear patent. No active extravasation or pseudoaneurysm identifiedon either portal and arterial phases. External Soft Tissues: Mild to moderate body wall edema. Osseous Structures: No acute abnormality identified.Degenerative/spondylotic changes of the spine. Lower thoracic epidural catheter. IMPRESSION * Moderate pneumoperitoneum, may be more so than expected 4 dayspostop. * Small to moderate volume scattered abdominopelvic free fluid. * Extensive edema/fluid in the region of the sarbjit hepatis. * Suspect colitis involving the hepatic flexure. * No active extravasation or pseudoaneurysm identified on either [place] arterial phases. * Large bowel ileus. * Partially imaged small pleural effusions with adjacent atelectasis. * Nonspecific urinary bladder wall thickening, correlate for any concernof cystitis (intravesicular air may be iatrogenic). * Please see above for details and ancillary findings. Please note, this examination was ordered, performed, and interpreted radha STAT/emergency setting. Thank you for letting us participate in the care of this patient. If youare a health care provider and have any questions regarding this report,please contact the number below. For patients who have questions please contactthe health critical care nurse that requested your imaging first. Charu Balbuena MD IMG CT ORDERABLES * Triglyceride (01/27/2024 12:48 AM EST) Triglyceride 134 mg/dL 01/27/2024 11:42 AM EST [facility] Comment: Normal: <150 mg/dL Borderline High: 150-199 mg/dL High: 200-499 mg/dL Very High: > or =500 mg/dL Blood VENOUS BLOOD SPECIMEN / Unknown Venipuncture / Unknown 01/27/2024 12:48 AM EST 01/27/2024 12:54 AM EST Charu Balbuena MD CHEMISTRY ORDERABL ES [facility] [place] [place] [address] * Gold Tube HOLD (01/25/2024 6:52 AM EST) Gold Hold Hold for Add-on 01/25/2024 9:01 AM EST [facility] Blood VENOUS BLOOD SPECIMEN / Unknown Venipuncture / Unknown 01/25/2024 6:52 AM EST 01/25/2024 7:05 AM EST Charu Balbuena MD CHEMISTRY ORDERABL ES Performing Organization Address [facility]/ZIP Co de Phone Number [facility] [place] [address] * (ABNORMAL) Alanine Aminotransferase (01/25/2024 6:52 AM EST) Alanine Aminotransferase 108(H) 0 - 55 unit/L 01/25/2024 7:47 AM EST [facility] Blood VENOUS BLOOD SPECIMEN / Unknown Venipuncture / Unknown 01/25/2024 6:52 AM EST 01/25/2024 7:02 AM EST Charu Balbuena MD CHEMISTRY ORDERABL ES Performing Organization Address [facility] Co de Phone Number [facility] [place] [address] * (ABNORMAL) Aspartate Aminotransferase (01/25/2024 6:52 AM EST) Aspartate Aminotransferase 63(H) <=39 unit/L 01/25/2024 7:47 AM EST [facility] Blood VENOUS BLOOD SPECIMEN / Unknown Venipuncture / Unknown 01/25/2024 6:52 AM EST 01/25/2024 7:02 AM EST Charu Balbuena MD CHEMISTRY ORDERABL ES Performing Organization Address City/[facility] Co de Phone Number [facility] [place] [place] [address] * Potassium (01/25/2024 6:52 AM EST) Potassium 3.8 3.5 - 5.0 mMol/L 01/25/2024 7:47 AM EST [facility] Blood VENOUS BLOOD SPECIMEN / Unknown Venipuncture / Unknown 01/25/2024 6:52 AM EST 01/25/2024 7:02 AM EST Charu Balbuena MD CHEMISTRY ORDERABL ES [facility] [place] [place] [address] * (ABNORMAL) Blood Gas, Arterial POC (01/23/2024 6:59 PM EST) Only the most recent of6 resultswithin the time period is included. pH, Arterial 7.37 7.35 - 7.45 01/24/2024 6:32 AM [facility] PCO2, Arterial 39 35 - 45 mmHg 01/24/2024 6:32 AM [facility] PO2, Arterial 133(H) 85 - 104 mmHg 01/24/2024 6:32 AM [facility] Bicarbonate, Arterial 21.7 20.0 - 26.0 mmol/L 01/24/2024 6:32 AM [facility] Base Excess, Arterial -3.6(L) -3.0 - 3.0 mmol/L 01/24/2024 6:32 AM [facility] Hemoglobin, Arterial 10.4(L) 13.7 - 16.5 g/dL 01/24/2024 6:32 AM [facility] Oxyhemoglobin, Arterial 96.0 94.0 - 97.0 % 01/24/2024 6:32 AM [facility] Carboxyhemoglobin , Arterial 0.3 % 01/24/2024 6:32 AM [facility] Comment: Nonsmokers: 0.5-1.5% COHB ?? Smokers: Variable ??but usually less than 10% ?? Toxic: 20-30% COHB ?? Lethal: Greater than 60% COHB Methemoglobin, Arterial 0.3 <=1.5 % 01/24/2024 6:32 AM [facility] Sodium, Arterial 135 135 - 145 mmol/L 01/24/2024 6:32 AM [facility] Potassium, Arterial 3.8 3.5 - 5.0 mmol/L 01/24/2024 6:32 AM EST [facility] Chloride, Arterial 105 98 - 107 mmol/L 01/24/2024 6:32 AM [facility] Lactate, Arterial 1.3 0.5 - 2.2 mmol/L 01/24/2024 6:32 AM [facility] IONIZED CALCIUM, ARTERIAL 1.08(L) 1.15 - 1.33 mmol/L 01/24/2024 6:32 AM [facility] Glucose, Arterial 116 65 - 199 mg/dL 01/24/2024 6:32 AM [facility] Comment:Glucose Concentratio n >=200 mg/dL plus symptoms is consistent with Diabetes Mellitus. Blood ARTERIAL BLOOD / Unknown 01/23/2024 6:59 PM EST 01/24/2024 6:32 AM EST Charu Balbuena MD POINT OF CARE TEST ORDERABLES Performing Organization Address [facility]/ZIP Co de Phone Number [facility] [place] [address] * APTT (01/23/2024 5:06 PM EST) Partial Thromboplastin Time 26 25 - 37 sec 01/23/2024 5:53 PM [facility] Comment: The PTT is NOT appropriate for heparin monitoring. Use the Anti-Xa level for heparin monitoring (HEP UFH) or LMWH monitoring (HEP LMW). A PTT less than 37 seconds generally indicates adequate hemostasis. Blood VENOUS BLOOD SPECIMEN / Unknown Venipuncture / Unknown 01/23/2024 5:06 PM EST 01/23/2024 5:19 PM EST Charu Balbuena MD HEMATOLOGY ORDERAB LES Performing Organization Address City/[facility]/ZIP Co de Phone Number [facility] [place] [address] * (ABNORMAL) Prothrombin Time (01/23/2024 5:06 PM EST) Prothrombin Time 12.7(H) 9.4 - 12.5 sec 01/23/2024 5:53 PM EST [facility] International Normalization Ratio 1.1 <=4.9 01/23/2024 5:53 PM EST [facility] Comment: An INR < 2.0 indicates adequate procoagulant activity for hemostasis in most patients without underlying bleeding disorders, though the INR may not adequately reflect hemostatic capacity in patients with liver disease and synthetic impairment. The recommended target INR range for therapeutic anticoagulation is 2.0 - 3.0 for most applications, though lower and higher ranges may be appropriate depending on clinical circumstances. Blood VENOUS BLOOD SPECIMEN / Unknown Venipuncture / Unknown 01/23/2024 5:06 PM EST 01/23/2024 5:19 PM EST Charu Balbuena MD HEMATOLOGY ORDERAB LES Performing Organization Address [facility]/ZIP Co de Phone Number [facility] [place] [address] * Fibrinogen (01/23/2024 5:06 PM EST) Fibrinogen 242 200 - 393 mg/dL 01/23/2024 5:53 PM EST [facility] Comment: A fibrinogen level >100 mg/dL is adequate for hemostasis in most patients without underlying bleeding disorders. Blood VENOUS BLOOD SPECIMEN / Unknown Venipuncture / Unknown 01/23/2024 5:06 PM EST 01/23/2024 5:19 PM EST Charu Balbuena MD HEMATOLOGY ORDERAB LES [facility] [place] [address] * (ABNORMAL) Hemoglobin A1c (01/23/2024 5:06 PM EST) Hemoglobin A1c 7.0(H) 4.3 - 5.6 % 01/23/2024 5:49 PM EST [facility] Comment: Per ADA guidelines, without clear symptoms of hyperglycemia or a random plasma glucose >199 mg/dL, a single abnormal A1c measurement cannot be used to diagnose diabetes mellitus. The diagnosis must be confirmed by either 1) a concurrent abnormal fasting plasma glucose or impaired response to oral glucose tolerance testing, or 2) an additional abnormal A1c, impaired fasting plasma glucose, or impaired response to oral glucose tolerance testing on a different day. A1c results obtained on patients with altered red blood cell turnover may not be lead customer service representative of glycemic control. Reference Interval: 4.3 - 5.6% 5.7 - 6.4%: Consistent with prediabetes >=6.5%: Consistent with diagnosis of diabetes mellitus Estimated Average Glucose 01/23/2024 5:49 PM EST [facility] Comment:Estimated Average Gl ucose not appropriate for patients over 70 years of age. Blood VENOUS BLOOD SPECIMEN / Unknown Venipuncture / Unknown 01/23/2024 5:06 PM EST 01/23/2024 5:18 PM EST Narrative [facility] - 01/23/2024 5:49 PM EST Estimated average glucose (eAG) is calculated from the equation described in: César SAMPSON, Steven J, Soto R, et al. ??Translating the A1C assay into estimated average glucose values. ??Diabetes Care 2008:31(8):8885-3959. Additional resources are available on the ADA website (diabetes.org). Charu Balbuena MD CHEMISTRY ORDERABL ES [facility] [place] [address] * (ABNORMAL) Surgical Pathology (01/23/2024 11:16 AM EST) Case Report Surgical Pathology Report ? Case: [id number] ? Authorizing Provider: ??Charu Balbuena MD ?Collected: ? 01/23/2024 1116 ? Ordering Location: ? Main Operating Room [place] ?? Received: ?01/23/2024 1403 ? [facility] ? Hospital ? Pathologist: ? Li Lynne MD ? Specimens: ?? A) - Lymph Node, Gastric, common hepatic artery lymph node ? B) - Pancreas, head of pancreas, duodenum, bile duct, gallbladder, antrum ? 4 2:36 PM [facility] Final Diagnosis A. Lymph Node: Lymph node, negative for carcinoma (0/1). B. Pancreas, head of pancreas, duodenum, bile duct, gallbladder, antrum Excision: Residual invasive pancreatic ductal carcinoma, see Synoptic Report below. Gallbladder, negative for carcinoma. Omentum with fibrosis, negative for carcinoma. 4 2:36 PM [facility] Synoptic Report PANCREAS (EXOCRINE) PANCREAS (EXOCRINE) - All Specimens 8th Edition - Protocol posted: 08/23/2021 SPECIMEN ?? Procedure: ?Pancreaticoduodenec skyler (Whipple resection), partial pancreatectomy TUMOR ?? Tumor Site: ?Pancreatic head ?? Histologic Type: ?Ductal adenocarcinoma (NOS) ?? Histologic Grade: ?G2, moderately differentiated ?? Tumor Size: ?Greatest Dimension (Centimeters): 3.6 cm ?? Site(s) Involved by Direct Tumor Extension: ?Ampulla of Vater or sphincter of Oddi ?? Treatment Effect: ?Present, with residual cancer showing evident tumor regression, but more than single cells or rare small groups of cancer cells (partial response, score 2) ?? Lymphovascular Invasion: ?Present ?? Perineural Invasion: ?Not identified MARGINS ?? Margin Status for Invasive Carcinoma: ?Invasive carcinoma present at margin ? Margin(s) Involved by Invasive Carcinoma: ?Uncinate (retroperitoneal / superior mesenteric artery) ?? Margin Status for Dysplasia and Intraepithelial Neoplasia: ?All margins negative for dysplasia and intraepithelial neoplasia REGIONAL LYMPH NODES ?? Regional Lymph Node Status: ? : ?Tumor present in regional lymph node(s) ? Number of Lymph Nodes with Tumor: ?1 ? Number of Lymph Nodes Examined: ?15 PATHOLOGIC STAGE CLASSIFICATION ??(pTNM, AJCC 8th Edition) ?? Reporting of pT, pN, and (when applicable) pM categories is based on information available to the pathologist at the time the report is issued. As per the AJCC (Chapter 1, 8th Ed.) it is the managing physician? s responsibility to establish the final pathologic stage based upon all pertinent information, including but potentially not limited to this pathology report. ?? pT Category: ?pT2 ?? pN Category: ?pN1 ADDITIONAL FINDINGS ?? 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 4 2:36 PM EST [facility] Additional Studies Task ID IHC/Special Stains Result B22-2 CKAE1/3 Reviewed for diagnosis B31-2 CKAE1/3 Reviewed for diagnosis B32-2 CKAE1/3 Reviewed for diagnosis 4 2:36 PM [facility] Disclaimer(s) Formalin-fixed, paraffin-embedded tissue sections are studied using the polymer technique with appropriate positive and negative controls. These IHC studies provide the pathologist with adjunctive diagnostic information. Antibody specificity has been verified by testing antibodies on a series of in-house tissues with known immunohistochemical performance characteristics. The clinical interpretation of any antibody positive staining or its absence is evaluated within the context of clinical presentation, morphology, histopathological criteria and other diagnostic tests. 4 2:36 PM [facility] Clinical Information A. Lymph Node, common hepatic artery lymph node *Other - as specified in Clinical Information Pancreas cancer, common hepatic artery lymph node B. Pancreas, head of pancreas, duodenum, bile duct, gallbladder, antrum *Other - as specified in Clinical Information Pancreas cancer Yellow: pancreatic neck margin FROZEN Nicollet: SMA Green: bile duct margin Blue: vascular groove 4 2:36 PM [facility] Intraoperative Consultation B. Pancreas, head of pancreas, duodenum, bile duct, gallbladder, antrum. FS1 - Pancreatic neck margin: Negative for tumor. . This a preliminary intraoperative diagnosis. A final report will follow. 4 2:36 PM [facility] Gross Description A. Lymph Node, Gastric, common hepatic artery lymph node. A - Labeled/Fixative: Common hepatic artery lymph node, fresh. Quantity/Size: Single, 2.5 x 1.5 x 0.8 cm. Tissue Description: Intact mccrary, homogeneous lymph node. Sections/Processing: Serially sectioned and entirely submitted in 3 cassettes labeled A1-A3. sns B. Pancreas, head of pancreas, duodenum, bile duct, gallbladder, antrum. B - Labeled/Fixative: Head of pancreas, duodenum, bile duct, gallbladder, antrum, fresh. SPECIMEN DESCRIPTION Resection Specimen: Whipple resection consisting of the head of pancreas, duodenum, distal stomach, gallbladder and attached soft tissue. Integrity: Intact Orientation: Received oriented with the pancreatic neck margin inked yellow, the vascular groove inked blue and the uncinate margin inked orange. LESION Location: Head of pancreas Size: 3.6 x 3.0 x 2.6 cm Description: Solid bowden-white mass with multiple cysts at the periphery. Relationship to pancreatic duct: Directly communicates with pancreatic duct Relationship to common bile duct: Surrounds/stenoses common bile duct Extension: Lesion is confined to pancreas. Margins: -12 cm from gastric margin. -18 cm from duodenal margin. -1.8 cm from pancreatic neck margin. -2.5 cm from hepatic duct margin. -0.3 cm from vascular groove margin. -0.3 cm from uncinate margin. -1.2 cm from posterior margin. PANCREAS Size: 7 x 6 x 3 cm Parenchyma: Scant residual parenchyma. Ducts: The pancreatic duct is dilated to 1.0 cm in diameter STOMACH Greater Curvature: 13.5 cm Lesser Curvature: 7.5 cm Serosa: [place]-red, smooth and glistening. Mucosa: [place] with the usual rugal folds DUODENUM Length/Diameter: 32 x 2.5 cm Serosa: [place]-red, smooth and glistening. Mucosa: [place]-red with the usual folds slightly polypoid proximal to the ampulla.. Ampulla of Vater: Patent, with stent in place. GALLBLADDER Size: 10 x 3 x 3 cm Serosa: [place]-purple and smooth Mucosa: Lumen contents consists of brown, mucoid bile without calculi. The mucosa is red-brown and velvety. Cystic Lymph Node: Present OTHER Lymph nodes: Multiple lymph nodes are identified. Ink Designation: The posterior retroperitoneal margin is inked black. The anterior serosal surface is inked red. The common bile duct is marked green. Sections/Processing: The following tissue is submitted for frozen section: The pancreatic neck margin is submitted en face for frozen section as FS 1. Within the greater omentum is a 3 x 2 cm ill-defined firm indurated nodular area. Human Service Coordinator sections in 37 cassettes as follows: B1: FS 1-pancreatic neck margin en face B2: Hepatic duct margin en face B3: Gastric margin en face B4: Duodenum margin en face B5: Human Service Coordinator gallbladder and cystic duct B6: Cystic duct lymph node quadrisected B7-B8: Cystic component of lesion to anterior serosal surface and uncinate margin B9-B11: Lesion to pancreatic duct and vascular groove margin B12-B15: Lesion to uncinate margin B16-B18: Lesion to vascular groove margin B19-B21: Lesion to anterior serosal surface B22: Lesion to duodenum B23: Ampulla B24: 2 lymph nodes B25: 1 lymph node bisected B26: 1 node quadrisected B27: 1 node quadrisected B28-B30: 1 node serially sectioned B31-B32: 1 node quadrisected B33: 3 nodes B34: 1 node bisected B35: 1 node bisected B36-B37: Greater omentum lesion sns 4 2:36 PM EST [facility] Result Note THIS RESULT REQUIRES PHYSICIAN/IDANIA FOLLOW UP(A) 4 2:36 PM EST [facility] Tissue STRUCTURE OF LEFT GASTRIC LYMPH NODE / Unknown 01/23/2024 11:16 AM EST 01/23/2024 2:03 PM EST Comment:Pancreas cancer, com mon hepatic artery lymph node Tissue specimen (specimen) PANCREATIC STRUCTURE / Unknown 01/23/2024 12:47 PM EST 01/23/2024 1:55 PM EST Comment:Pancreas cancer Yellow: pancreatic neck margin FROZEN Nicollet: SMA Green: bile duct margin Blue: vascular groove Charu Balbuena MD PATHOLOGY/CYTOLOGY ORDERABLES [facility] [place] [address] * (ABNORMAL) Anaerobic Culture (01/23/2024 10:54 AM EST) Anaerobic Culture Rare Bacteroides fragilis group(A) VITEK 2 METHOD 01/27/2024 3:01 PM EST [facility] Tissue BILE DUCT STRUCTURE / Unknown 01/23/2024 10:54 AM EST Comment:Pancreatic cancer Charu Balbuena MD MICROBIOLOGY - GEN ERAL ORDERABLES [facility] [place] [address] * Tissue Culture, Aerobic Only (01/23/2024 10:54 AM EST) Tissue Culture No growth 01/27/2024 11:01 AM EST [facility] Gram Stain No neutrophils seen 01/27/2024 11:01 AM EST [facility] Gram Stain No microorganisms seen 01/27/2024 11:01 AM EST [facility] Tissue BILE DUCT STRUCTURE / Unknown 01/23/2024 10:54 AM EST Comment:Pancreatic cancer Charu Balbuena MD MICROBIOLOGY - GEN ERAL ORDERABLES [facility] [place] [phone] * XR Fluoro No Rad <1Hr - OR Use (01/23/2024 7:50 AM EST) Narrative Dicom, Auditing User - 01/23/2024 8:08 AM EST This exam is auto-finalizing. No interpretation was done. Cayetano Rodgers MD IMG FLUORO ORDERABL ES * [id number] ONLY (01/23/2024 7:22 AM EST) Narrative Cayetano Rodgers MD - 01/23/2024 7:22 AM EST Jace Lyons MD ? 01/23/2024 ??8:21 AM Procedure: ?? Neuraxial Block Post-op Pain Control Post-op pain management at the request of surgeon. Type: Epidural The patient was greeted. The sedation plan, its benefits, risks and alternatives were discussed with the patient. ??The patient has consented to the procedure. ??The medical history and chart were reviewed. ??The timeout was performed. Start time: 01/23/2024 7:22 AM End time: 01/23/2024 7:50 AM Patient Location: Operating Room (OR19) Patient Prep Position: Prone Prep: Hand Hygiene, Hat, Mask, Sterile Gloves, Gown, Chlorhexidine and Patient Draped Skin Anesthetic Lidocaine 1% ??4 ml Procedure Technique Level of needle insertion: T12-L1 and L1-2 Needle approach: paramedian Needle Type: Tuohy Gauge: 17 Needle length: 3.5 in Needle insertion depth when ALO achieved: 5 cm Technique for Loss of Resistance: ALO saline Catheter at skin depth: 15 cm Dressing/Secured with: Tape, Tegaderm and Chlorhexidine Tegaderm Number of attempts: 2 Medications: Date/Time: ??01/23/2024 7:22 AM Events/Notes Imaging: ??fluoroscopy guided and epidurogram obtained Level of Epidural Tip via Fluoroscopy: T8-9 Iohexol 300 mgI/mL, 2 mL Events: ??None Additional Notes: ??Initial attempt of needle insertion was T12-L1. Difficulty advancing needle around spinous process, therefore Tuohy was removed and inserted at the L1 space. Loss at 5 cm at the skin, and no evidence of intrathecal injection. Patient tolerated the procedure well without complications. Performed by: ?? Resident/ANGLE BENDER: ? Jace Lyons MD ?? Fellow: ?oKlton Morejon, DO ?? Attending Physician: ? Cayetano Rodgers MD Authorized by: Cayetano Rodgers MD ?? ~~~~~~~~~~~~~~~~~~~~~~~~~~~~~~~~~~~~~~~~~~~~~~~~~~~~~~~~~~~~ Cayetano Rodgers MD [facility] * CT Chest Abdomen Pelvis w Contrast (Generic) (12/17/2023 2:09 PM EDT) Pathologist Histros WORKSTATION ID [id number] [facility] Anatomical Region Laterality Modality Abdomen, Pelvis Computed Tomogra phy Impressions 12/18/2023 8:21 AM EDT 1. Posttreatment changes to the known pancreatic head cystic and solid mass as described above. The low-attenuation solid component is less prominent with mild residual changes along the medial aspect of the common bile duct stent remaining. The cystic component is slightly decreased in size currently measuring 2.6 cm maximally and previously measuring 3.0 cm on the 05/22/2023 study. The cystic component still abuts the superiormost aspect of the superior mesenteric vein but less than 180 degrees. There is persistent but now very subtle low-attenuation soft tissue stranding abutting the right and inferior aspect of the superior mesenteric artery. On the prior 05/22/2023 and outside 10/23/2023 study there was more soft tissue component and now very low-attenuation fat stranding remaining. 2. No evidence for metastatic disease. 3. Status post sternotomy and CABG with extensive vascular calcification. Thank you for letting us participate in the care of this patient. ??If you are a health care provider and have any questions regarding this report, please contact the number below. ??For patients who have questions please contact the health critical care nurse that requested your imaging first. ? Narrative 12/18/2023 8:21 AM EDT EXAMINATION: CT CHEST ABDOMEN PELVIS W CONTRAST (GENERIC) CLINICAL HISTORY: PANCREATIC PROTOCOL CT CAP- Borderline resectable pancreatic cancer s/p mFOLFIRIOX and SBRT. ??Eval tumor/vessel relationships, response to treatment, ??metastatses. C25.0, Malignant neoplasm of head of pancreas TECHNIQUE: Helical CT of the chest, abdomen, and pelvis following the intravenous administration of contrast. Administered 120.0 ml of OMNIPAQUE 350.00 mg/ml. Oral contrast was not administered. COMPARISON: Prior studies including 10/23/2023 and 05/22/2023 FINDINGS: CHEST: Lung: Linear bibasilar airspace markings more likely due to atelectasis. No suspicious pulmonary nodularity or pulmonary mass lesions. No dense consolidation. Incidental lung cysts in the lateral right lower lobe Mediastinum: Patient is status post sternotomy and CABG with significant calcification of the aorta and catawba coronary vessels. I do not appreciate any bulky hilar or mediastinal adenopathy. Right lower paratracheal lymph node measures 0.7 cm in maximal short axis diameter unchanged from 10/23/2023. Small hiatal hernia. Pericardium/Pleura: Tiny right pleural effusion. No pericardial effusion. No obvious pleural thickening or irregularity Chest Wall/Axilla: Right-sided CT compatible chest port with tip near the cavoatrial junction. No bulky axillary adenopathy. ABDOMEN/PELVIS: Peritoneal Space:No significant free air or free fluid identified. Liver, Gallbladder, Biliary Tree: The liver is normal in size, shape, and attenuation. No focal hepatic lesion. Air in the nondependent biliary ducts consistent with a patent common bile duct stent. ??The gallbladder is contracted but otherwise unremarkable with no evidence of radiopaque gallstones, gallbladder wall thickening, or obvious pericholecystic inflammatory changes. Pancreas: Again there is a markedly abnormal appearance to the pancreas. Pancreatic ductal dilatation measuring up to 1.1 cm in the pancreatic neck region. There is atrophy to the pancreatic parenchyma in the neck, body, and tail. The known pancreatic head mass is difficult to define on today's study. Fluid attenuating 2.6 cm component along the medial aspect of the pancreatic head is again noted. Inferior to this there is a 2.1 cm more hypoattenuating region. The 05/22/2023 study had a more circumferential lesion in the surrounding the common bile duct stent but now the right lateral and inferior component of the mass are no longer delineated. On the arterial phase series there is persistent ill-defined low-attenuation along the right and inferior aspect of the superior mesenteric artery suggesting abutment although on the 05/22/2023 study there is more soft tissue component this is best seen on series 301 image 68 On the portal venous phase the low-attenuation cystic component again directly abuts the right lateral aspect of the upper superior mesenteric vein near the portal confluence. This abutment is best appreciated on series 308 image 80 and coronal series 603 image 52. This appears similar to the 05/22/2023 exam. Spleen: Unremarkable. Adrenal Glands: Unremarkable. Kidneys and Ureters: The kidneys are normal in size, shape, and attenuation. No hydronephrosis, hydroureter, or calculi seen. No perinephric stranding. Bladder: Evaluation of bladder is limited due to beam hardening artifact from the bilateral hip prostheses. Gastrointestinal Tract: Moderate amount of stool in the colon and rectum. Scattered colonic diverticula. No obvious pericolonic inflammatory change. Visualized small bowel grossly unremarkable. Stomach is nondilated. Abdominal Wall: No significant hernia is appreciated. Lymphovascular Structures: Extensive vascular calcification within the aortoiliac region. Bypass graft partially seen in the left lower extremity. Pelvic Viscera: Difficult to define due to beam hardening artifact from bilateral hip prostheses. Fiducial markers suggested in the prostate Osseus Structures: Bilateral hip prostheses. Degenerative changes in the bilateral sacroiliac joints. Postoperative and degenerative changes in the lower lumbar spine. Marked degenerative changes in the bilateral shoulders. Procedure Note Cayetano Barron MD - 12/18/2023 EXAMINATION: CT CHEST ABDOMEN PELVIS W CONTRAST (GENERIC) CLINICAL HISTORY: PANCREATIC PROTOCOL CT CAP- Borderline resectablepancreatic cancer s/p mFOLFIRIOX and SBRT. Eval tumor/vessel relationships, responseto treatment, metastatses. C25.0, Malignant neoplasm of head of pancreas TECHNIQUE: Helical CT of the chest, abdomen, and pelvis following the intravenous administration of contrast. Administered 120.0 ml ofOMNIPAQUE 350.00 mg/ml. Oral contrast was not administered. COMPARISON: Prior studies including 10/23/2023 and 05/22/2023 FINDINGS: CHEST: Lung: Linear bibasilar airspace markings more likely due to atelectasis.No suspicious pulmonary nodularity or pulmonary mass lesions. No dense consolidation. Incidental lung cysts in the lateral right lower lobe Mediastinum: Patient is status post sternotomy and CABG with significant calcification of the aorta and catawba coronary vessels. I do notappreciate any bulky hilar or mediastinal adenopathy. Right lower paratracheal lymphnode measures 0.7 cm in maximal short axis diameter unchanged from 10/23/2023.Small hiatal hernia. Pericardium/Pleura: Tiny right pleural effusion. No pericardial effusion.No obvious pleural thickening or irregularity Chest Wall/Axilla: Right-sided CT compatible chest port with tip nearthe cavoatrial junction. No bulky axillary adenopathy. ABDOMEN/PELVIS: Peritoneal Space:No significant free air or free fluid identified. Liver, Gallbladder, Biliary Tree: The liver is normal in size, shape,and attenuation. No focal hepatic lesion. Air in the nondependent biliaryducts consistent with a patent common bile duct stent. The gallbladder iscontracted but otherwise unremarkable with no evidence of radiopaque gallstones, gallbladder wall thickening, or obvious pericholecystic inflammatorychanges. Pancreas: Again there is a markedly abnormal appearance to the pancreas. Pancreatic ductal dilatation measuring up to 1.1 cm in the pancreaticneck region. There is atrophy to the pancreatic parenchyma in the neck, body,and tail. The known pancreatic head mass is difficult to define on today's study.Fluid attenuating 2.6 cm component along the medial aspect of the pancreatichead is again noted. Inferior to this there is a 2.1 cm more hypoattenuatingregion. The 05/22/2023 study had a more circumferential lesion in the surrounding thecommon bile duct stent but now the right lateral and inferior component of themass are no longer delineated. On the arterial phase series there is persistent mdk-ttrgusucdk-juawukvrcgh along the right and inferior aspect of the superior mesenteric arterysuggesting abutment although on the 05/22/2023 study there is more soft tissuecomponent this is best seen on series 301 image 68 On the portal venous phase the low-attenuation cystic component againdirectly abuts the right lateral aspect of the upper superior mesenteric vein nearthe portal confluence. This abutment is best appreciated on series 308 image80 and coronal series 603 image 52. This appears similar to the 05/22/2023 exam. Spleen: Unremarkable. Adrenal Glands: Unremarkable. Kidneys and Ureters: The kidneys are normal in size, shape, andattenuation. No hydronephrosis, hydroureter, or calculi seen. No perinephric stranding. Bladder: Evaluation of bladder is limited due to beam hardening artifactfrom the bilateral hip prostheses. Gastrointestinal Tract: Moderate amount of stool in the colon andrectum. Scattered colonic diverticula. No obvious pericolonic inflammatorychange. Visualized small bowel grossly unremarkable. Stomach is nondilated. Abdominal Wall: No significant hernia is appreciated. Lymphovascular Structures: Extensive vascular calcification within the aortoiliac region. Bypass graft partially seen in the left lowerextremity. Pelvic Viscera: Difficult to define due to beam hardening artifact from bilateral hip prostheses. Fiducial markers suggested in the prostate Osseus Structures: Bilateral hip prostheses. Degenerative changes in the bilateral sacroiliac joints. Postoperative and degenerative changes in thelower lumbar spine. Marked degenerative changes in the bilateral shoulders. IMPRESSION 1. Posttreatment changes to the known pancreatic head cystic and solidmass as described above. The low-attenuation solid component is less prominentwith mild residual changes along the medial aspect of the common bile duct stent remaining. The cystic component is slightly decreased in size currently measuring 2.6 cm maximally and previously measuring 3.0 cm on the05/22/2023 study. The cystic component still abuts the superiormost aspect of thesuperior mesenteric vein but less than 180 degrees. There is persistent but nowvery subtle low-attenuation soft tissue stranding abutting the right andinferior aspect of the superior mesenteric artery. On the prior 05/22/2023 andoutside 10/23/2023 study there was more soft tissue component and now very low-attenuation fat stranding remaining. 2. No evidence for metastatic disease. 3. Status post sternotomy and CABG with extensive vascularcalcification. Thank you for letting us participate in the care of this patient. If youare a health care provider and have any questions regarding this report,please contact the number below. For patients who have questions please contactthe health critical care nurse that requested your imaging first. Charu Balbuena MD IM CT ORDERABLES * (ABNORMAL) Carbohydrate Antigen 19-9 (12/17/2023 12:18 PM EDT) CA 19-9 41.6(H) <=35.0 units/mL 12/17/2023 5:03 PM EDT [facility] Comment:This result was gene rated using a Adnni Lita immunoassay. Results obtained from other methods or manufacturers cannot be used interchangeably with this method. Blood VENOUS BLOOD SPECIMEN / Unknown Mediport Line / Unknown 12/17/2023 12:18 PM EDT 12/17/2023 12:27 PM EDT Cl Hess MD CHEMISTRY ORDERABLES [facility] [place] [address] * Lipid Panel (Reflex Direct LDL) (07/18/2021 8:33 PM EDT) Cholesterol, Total 151 mg/dL [facility] Comment: Lower Risk: <200 mg/dL Average Risk: 200-239 mg/dL Higher Risk: >xm=179 mg/dL Triglyceride 162 mg/dL [facility] Comment: Average Risk/Lower Risk: <150 mg/dL Borderline High Risk: 150-199 mg/dL High Risk: 200-499 mg/dL Very High Risk: >mi=777 mg/dL HDL Cholesterol 38 mg/dL [facility] Comment: Males: ?? Higher Risk: <40 mg/dL Females: ?? Higher Risk: <50 mg/dL LDL Cholesterol 81 mg/dL [facility] Comment: Lowest Risk: <100 mg/dL Lower Risk: 100-129 mg/dL Borderline High Risk: 130-159 mg/dL High Risk: 160-189 mg/dL Very High Risk: >tu=604 mg/dL Cholesterol/HDL Ratio 4.0 ratio [facility] Lipid Interpretation See Note [facility] Comment: Lipid management should be guided by a patient? s ASCVD risk, goals and preferences. ACC/AHA Guidelines recommend high intensity statin if clinical ASCVD or LDL greater than or equal to 190 mg/dL. http://NationalFieldurl.com/MLV-LRZ-Payzamlmq Adults aged 40-75 with LDL 70-189 mg/dL should have their 10 year ASCVD risk estimated with the ACC/AHA ASCVD risk electronic science teacher http://tools.acc.org/CDIRS-Abuy-Qeglbcyjs/ Statin should be discussed if risk greater [...] Resulting Agency Comment Spec In Lab Salome Dom Rodriguez APRN CHEMISTRY ORDERABLES [facility] [place] [place] [address] from Last 3 Months or Most Recently Relevant to Health Maintenance Advance Directives Documents on File Type Date Recorded Patient Human Service Coordinator Colleen nielsen Personal Human Service Coordinator 07/04/2023 9:10 AM susan roper Personal Human Service Coordinator 10/07/2020 7:46 AM ЕКАТЕРИНА SADLER Personal Human Service Coordinator 10/07/2020 7:45 AM HUNG FAJARDO Personal Human Service Coordinator 05/04/2021 1:43 PM brother Personal Human Service Coordinator 05/04/2021 1:43 PM brother * Attempt Cardiopulmonary Resuscitation - Inpatient (Latest Code Status on File) Date Activated Date Inactivated Comments 01/23/2024 4:29 PM 02/01/2024 2:52 PM Question Answer Comments Code Status decision made by: Patient * Attempt Cardiopulmonary Resuscitation - Inpatient Date Activated Date Inactivated Comments 11/17/2021 11:55 [...] Comments Code Status decision made by: Patient Healthcare Agents on File Name Relationship Healthcare Agent Relationship Communication Yessi (Maite) [facility] Care Agent [phone] (Mobile ) Care Teams Community Services Coordinator Relationship Specialty Start Date End Date Tristen Hunter MD [address] [place] [address] [place] [address] PCP - General Family Medicine 07/04/23
--- OUTSIDE RECORDS SUMMARY | 2024-03-12 10:48 | XMS_ITS | Encounter Summary ---
[place] [address] Care Team Providers Care Wire Bender Name Role Phone Tristen Hunter MD Primary Care Provider [phone] Reason for Visit * Reason Onset Date Comments Follow-up 02/04/2024 Encounter Details Date Type Department Care Team (Late st Contact Info) Description 02/04/2024 Telephone Hematology/Oncology at [address] [phone] Tammy Hooks, RN Follow-up Social History Tobacco Use Types Packs/Day Years Used Date Smoking Tobacco: Former Cigarettes 4 30 1 963 - 1992 Smokeless Tobacco: Never Alcohol Use Standard Drinks/Week Comments Yes 7 (1 standard drink = 0.6 oz pur e alcohol) [facility] Utilities Answer Date Recorded In the past [...] in a half-way (including now)? No 06/04/2023 Housing Stability Vital Sign Answer Meek e Recorded In the last 12 months, was t here a time when you were not able to pay the mortgage or rent on time? No 01/24/2024 In the past 12 months, how m any times have you moved where you were living? 0 01/24/2024 At any time in the past 12 m [facility], were you homeless or living in a half-way (including now)? No 01/24/2024 DH IPV Inpatient [...] encounter Miscellaneous Notes * Telephone Encounter - Tammy Hooks RN - 02/04/2024 10:35 AM EST Left message to call back regarding recent ER visit, weakness. documented in this encounter Plan of Treatment Upcoming Encounters Date Type Department Care Team (Late st Contact Info) Description 03/24/2024 9:00 AM EST TH Visit (TeleHealth) Radiation Oncology at [address] [phone] Ping Moore PA [facility] DR HEMATOLOGY [place] [address] 03/26/2024 9:30 AM EST Office Visit Hematology/Oncology at [address] [phone] Yessi Renee [address] HEMATOLOGY AND ONCOLOGY [place], [place] [id number] 03/26/2024 9:30 AM EST Infusion Hematology Oncology at [address] [phone] 04/09/2024 9:30 AM EST Office Visit Hematology/Oncology at [address] [phone] Cl Hess MD [facility] [place] [place] [address] HEMATOLOGY AND ONCOLOGY [place], [place] [address] 04/09/2024 10:00 AM EST Infusion Hematology Oncology at [address] [phone] 04/23/2024 9:30 AM EST Office Visit Hematology/Oncology at [address] [phone] 89 Cl Hess MD [facility] [place] [place] [address] Yessi Renee APRN [address] [place] [address] DR [place]EMAT[place]Y [place] [address] 04/23/2024 10:00 AM EST Infusion Hematology Oncology at [address] [phone] 05/18/2024 4:30 PM EDT TH Visit (TeleHealth) [place] [address] Malachi Rothman MD [facility] DR [place] [address] documented as of this encounter Visit Diagnoses Not on filedocumented in this encounter Care Teams Wire Bender Relationship Specialty Start Date End Date Tristen uHnter MD [address] [place] [address] [place] [address] PCP - General Family Medicine 07/04/23 documented as of this encounter
--- OUTSIDE RECORDS SUMMARY | 2024-03-12 10:48 | XMS_ITS ---
[place] [address] Care Team Providers Care Rewinder Operator Name Role Phone Tristen Hunter MD Primary Care Provider [phone] Active Problems Problem Noted Date Diagnosed Date [...] Medications Current Day (Day 1 , Cycle 9 - Planned for 11/01/2023) Next Day (Day 3, Cycle 9 - Planned for 11/03/2023) fluorouraciL (AdruciL) in sodium chloride 0.9% 138 [...] prosta te Treatment Medications No medications scheduled. 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 Past Plans Therapy Plan 1 Plan Name Start Date Discontinue Date Treatment Medications Discontinue Reason Plan Provider LEUPROLIDE (LUPRON DEPOT) 7.5 MG MONTH 02/03/2021 01/30/2021 No medications scheduled. Plan is Being Renewed Bigg Peters MD Radiation Treatments * No radiation treatments are documented for this patient in [facility]. Treatments may have been administered in another system.
--- OUTSIDE RECORDS SUMMARY | 2024-03-12 10:48 | XMS_ITS | Encounter Summary ---
[place] [address] Care Team Providers Care Vocational Placement Specialist Name Role Phone Tristen Hunter MD Primary Care Provider [phone] Encounter Details Date Type Department Care Team (Latest Contact Info) Description 03/12/2024 Travel Social History Tobacco Use Types Packs/Day Years Used Date Smoking Tobacco: Former Cigarettes 4 30 1 963 - 1992 Smokeless Tobacco: Never Alcohol Use Standard Drinks/Week Comments Yes 7 (1 standard drink = 0.6 oz pur e alcohol) [facility] Utilities Answer Date Recorded In the past 12 months has [employer] electric, gas, oil, or water company threatened [...] place to sleep or slept in a alf (including now)? No 06/04/2023 Housing Stability Vital Sign Answer Meek e Recorded In the last 12 months, was t here a time when you were not able to pay the mortgage or rent on time? No 01/24/2024 In the past 12 months, how m any times have you moved where you were living? 0 01/24/2024 At any time in the past 12 m [facility], were you homeless or living in a alf (including now)? No 01/24/2024 IPV Inpatient Questions [...] EST TH Visit (TeleHealth) Radiation Oncology at [address] [phone] Ping Moore PA [facility] HEMATOLOGY [place] [address] 03/26/2024 9:30 AM EST Office Visit Hematology/Oncology at [address] [phone] [address] HEMATOLOGY AND ONCOLOGY [place], [place] [id number] 03/26/2024 9:30 AM EST Infusion Hematology Oncology at [address] [phone] 04/09/2024 9:30 AM EST Office Visit Hematology/Oncology at [address] [phone] Cl Hess MD [facility] [place] [address] [address] [place] [address] 04/09/2024 10:00 AM EST Infusion Hematology Oncology at [address] [phone] 04/23/2024 9:30 AM EST Office Visit Hematology/Oncology at [address] [phone] Cl Hess MD [facility] [place] [address] [address] HEMATOLOGY AND ONCOLOGY [place], [place] [address] 04/23/2024 10:00 AM EST Infusion Hematology Oncology at [address] [phone] 05/18/2024 4:30 PM EDT TH Visit (TeleHealth) [place] [phone] Malachi Rothman MD [facility] [place] [address] documented as of this encounter Visit Diagnoses Not on filedocumented in this encounter Care Teams Vocational Placement Specialist Relationship Specialty Start Date End Date Tristen Hunter MD [address] [place] [address] [place] [address] PCP - General Family Medicine 07/04/23 documented as of this encounter
--- OUTSIDE RECORDS SUMMARY | 2024-03-12 10:48 | XMS_ITS | Encounter Summary ---
Author Organization [facility] Address [facility] [place] [address] Care Team Providers Care Case Repairer Name Role Phone Tristen Hunter MD Primary Care Provider [phone] Encounter Details Date Type Department Care Team (Late st Contact Info) Description 02/27/2024 10:00 AM EST Telephone Hematology/Oncology at [address] [phone] [facility] [place] [address] Social History Tobacco Use Types Packs/Day Years Used Date Smoking Tobacco: Former Cigarettes 4 30 1 3 - 1992 Smokeless Tobacco: Never Alcohol Use Standard Drinks/Week Comments Yes 7 (1 standard drink = 0.6 oz pur e alcohol) [facility] Utilities Answer Date Recorded In the past 12 months has [employer] electric, gas, oil, or water company threatened [...] in a mcfp (including now)? No 06/04/2023 Housing Stability Vital Sign Answer Meek e Recorded In the last 12 months, was t here a time when you were not able to pay the mortgage or rent on time? No 01/24/2024 In the past 12 months, how m any times have you moved where you were living? 0 01/24/2024 At any time in the past 12 m [facility], were you homeless or living in a mcfp (including now)? No 01/24/2024 IPV Inpatient Questions [...] encounter Miscellaneous Notes * Telephone Encounter - Lupe Velasquez, RD - 02/27/2024 11:35 AM EST Nutrition Note Spoke with Wero over the phone today. 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 Patient had TPN while inpatient which was discontinued on 01/30. He was discharged home on carb controlled diet. Patient also completed SBRT on 11/27/23 as well as 8 cycles of zahraa-adjuvant mFolfirinox 07/11-10/18/23. Patient reports he is doing well with continuing to eat at least 4 times/day, pretty good sized portions. He had a ham dinner for Kathy yesterday and plans on having spaghetti today. Also had meatloaf with mashed potato this week. He has an HS snack of yogurt + cookie. Patient is dosing Creon 24: 2 with evening meal, 1 with other meals/snacks. He denies having any diarrhea/loose stools. He says his BG is well controlled, though also prefers to run a bit high to avoid hypoglycemia overnight. His PCP office monitors his IDDM closely. Patient reports weight of 203# at PCP office this week. He feels his energy level is slowly improving. Path report shows disease response and unfortunately positive margin post surgery. The plan is to complete four more cycles of mFolfirinox. This is scheduled to start on 03/12. Wt Readings from Last 10 Encounters: 02/01/24 [...] kg (202 lb 9.6 oz) BMI 28.1 203# per pt at PCP's office week of 02/23 21# (9.8% body weight) loss over past 6 weeks 12/16-01/31 (Whipple on 01/22) - severe Unsure of accuracy of this weight loss - question if edema/diuresis was factor 35# re-gain in 5.5 months 07/04-12/16 Includes 8# gain in past 3 weeks 11/28-12/16 44# (23.2% body weight) loss over past year per chart 07/31/22-07/05/23 Lost 85# total per patient Diet: Eating at least 4 meals/day plus [place] yogurt + cookie at HS. Creon 24: 2 with evening meal, 1 with other meals/snacks. Ham dinner, meat loaf and mashed potatoes, and spaghetti this week so far. Brother helps with cooking at home though patient makes his own breakfast. Labs on 02/26: WBC/ANC 4.07/2499, Hgb/Hct 9.5/27.9, Plts 166,000, BUN/Cr 12/0.84, t bili 1.4, glucose 283, albumin 3.2, remainder of CMP otherwise unremarkable. 01/22: A1C 7.0% Medications: Augmentin, amlodipine, aspirin, atorvastatin, carvedilol, chlorthalidone, folic acid, Fiasp sliding scale insulin (unchanged), Tresiba insulin, imdur, Creon 24, lisinopril, omega 9-BBB-DMT-fish oil, flomax Nutrition Problem: Altered GI function related to pancreatic cancer s/p Whipple procedure 01/23/24 as evidenced by need for PERT and 21# (9.8% body weight) loss over past 6 weeks 12/16-01/31 (Whipple on 01/22) - severe(Unsure of accuracy of this weight loss - question if edema/diuresis was factor) Improved - good PO intake and weight of 203# per pt Recommendations: Continue with carb controlled diet with regular, frequent meals and snacks to maintain weight in light of plan for adjuvant chemotherapy starting 03/12. Patient's reported weight of 203# this week is 13# higher than DH weight of 190# on 01/31. Creon 24: dosing 2 with evening meal and 1 with other meals and snacks. Denies diarrhea. Will f/u on 03/12. documented in this encounter Plan of Treatment Upcoming Encounters Date Type Department Care Team (Late st Contact Info) Description 03/24/2024 9:00 AM EST TH Visit (TeleHealth) Radiation Oncology at [address] [phone] Ping Moore PA [facility] DR [place] [address] 03/26/2024 9:30 AM EST Office Visit Hematology/Oncology at [address] [phone] [address] HEMATOLOGY AND ONCOLOGY [place], [place] [phone] 03/26/2024 9:30 AM EST Infusion Hematology Oncology at [address] [phone] 04/09/2024 9:30 AM EST Office Visit Hematology/Oncology at [address] [phone] Cl Hess MD [facility] [place] [address] [address] HEMATOLOGY AND ONCOLOGY [place], [place] [phone] 04/09/2024 10:00 AM EST Infusion Hematology Oncology at [address] [phone] 04/23/2024 9:30 AM EST Office Visit Hematology/Oncology at [address] [phone] Cl Hess MD [facility] [place] [address] Ysesi Renee APRN [address] [place] [address] DR HEMATOLOGY AND ONCOLOGY [place], [place] [address] 04/23/2024 10:00 AM EST Infusion Hematology Oncology at [address] [phone] 05/18/2024 4:30 PM EDT TH Visit (TeleHealth) [place] [address] Malachi Rothman MD [facility] [place] [address] documented as of this encounter Visit Diagnoses Not on filedocumented in this encounter Care Teams Case Repairer Relationship Specialty Start Date End Date Tristen Hunter MD [address] [place] [address] [place] [address] PCP - General Family Medicine 07/04/23 documented as of this encounter
--- OUTSIDE RECORDS SUMMARY | 2024-03-12 10:48 | XMS_ITS | Encounter Summary ---
Author Organization [facility] Address [facility] [place] [address] Care Team Providers Care Cadmium Burner Name Role Phone Tristen Hunter MD Primary Care Provider [phone] Encounter Details Date Type Department Care Team (Late st Contact Info) Description 03/12/2024 9:30 AM EST Office Visit Hematology/Oncology at [address] [phone] Cl Hess MD [facility] [place] [address] Yessi Renee, ARNOLD [address] [place] [address] [place] [address] Malignant neoplasm of head of pancreas Social History Tobacco Use Types Packs/Day Years Used Date Smoking Tobacco: Former Cigarettes 4 30 1 963 - 1992 Smokeless Tobacco: Never Alcohol Use Standard Drinks/Week Comments Yes 7 (1 standard drink = 0.6 oz pur e alcohol) [facility] Utilities Answer Date Recorded [...] any time in the past 12 m [facility], were you homeless or living in a half-way (including now)? No 01/24/2024 IPV Inpatient Questions [...] Mass Index 27.9 03/12/2024 9:32 AM EST documented in this encounter Plan of Treatment Upcoming Encounters Date Type Department Care Team (Late st Contact Info) Description 03/24/2024 9:00 AM EST TH Visit (TeleHealth) Radiation Oncology at [address] [phone] Ping Moore PA [facility] [place] [address] 03/26/2024 9:30 AM EST Office Visit Hematology/Oncology at [address] [phone] Yessi Renee APRN [address] [place] [address] DR HEMATOLOGY AND ONCOLOGY [place], [place] [id number] 03/26/2024 9:30 AM EST Infusion Hematology Oncology at [address] [phone] 04/09/2024 9:30 AM EST Office Visit Hematology/Oncology at [address] [phone] Cl Hess MD [facility] [place] [address] Yessi Renee, [address] HEMATOLOGY AND ONCOLOGY [place], [place] [address] 04/09/2024 10:00 AM EST Infusion Hematology Oncology at [address] [phone] 04/23/2024 9:30 AM EST Office Visit Hematology/Oncology at [address] [phone] Cl Hess MD [facility] [place] [address] [address] HEMATOLOGY AND ONCOLOGY [place], [place] [id number] 04/23/2024 10:00 AM EST Infusion Hematology Oncology at [address] [phone] 05/18/2024 4:30 PM EDT TH Visit (TeleHealth) [place] [address] Malachi Rothman MD [facility] [place] [address] documented as of this encounter Visit Diagnoses Diagnosis Malignant neoplasm of head of pancreas documented in this encounter Care Teams Cadmium Burner Relationship Specialty Start Date End Date Tristen Hunter MD [address] [place] [address] [place] [address] PCP - General Family Medicine 07/04/23 documented as of this encounter
--- OUTSIDE RECORDS SUMMARY | 2024-03-12 10:48 | XMS_ITS | Encounter Summary ---
Author Organization [facility] Address [facility] [place] [address] Care Team Providers Care Car Barn Laborer Name Role Phone Tristen Hunter MD Primary Care Provider [phone] Reason for Visit * Treatment/Therapy Plan Authorization (Routine) - Authorized Specialty Diagnoses / Procedures Referred By Marqeus t Referred To Contact Diagnoses Malignant neoplasm of prostate Cl Hess MD [facility] [place] [address] [facility] Hem Onc Infusion [address] [place] [id number] Referral ID Status Reason Start Date Expiration Date V isits Requested Visits Authorized [id number] Authorized 07/11/2023 07/10/2024 99 99 Encounter Details Date Type Department Care Team (Late st Contact Info) Description 03/12/2024 10:00 AM EST Infusion Hematology Oncology at [address] [phone] Arrived Social History Tobacco Use Types Packs/Day Years Used Date Smoking Tobacco: Former Cigarettes 4 30 1 963 - 1992 Smokeless Tobacco: Never Alcohol Use Standard Drinks/Week Comments Yes 7 (1 standard drink = 0.6 oz pur e alcohol) [facility] Utilities Answer Date Recorded In [...] place to sleep or slept in a halfway (including now)? No 06/04/2023 Housing Stability Vital Sign Answer Meek e Recorded In the last 12 months, was t here a time when you were not able to pay the mortgage or rent on time? No 01/24/2024 In the past 12 months, how m any times have you moved where you were living? 0 01/24/2024 At any time in the past 12 m [facility], were you homeless or living in a halfway (including now)? No 01/24/2024 IPV Inpatient Questions [...] EST TH Visit (TeleHealth) Radiation Oncology at [address] [phone] Ping Moore PA [facility] DR [place] [address] 03/26/2024 9:30 AM EST Office Visit Hematology/Oncology at [address] [phone] Yessi Renee, [address] HEMATOLOGY AND ONCOLOGY [place], [place] [phone] 03/26/2024 9:30 AM EST Infusion Hematology Oncology at [address] [phone] 04/09/2024 9:30 AM EST Office Visit Hematology/Oncology at [address] [phone] Cl Hess MD [facility] [place] [address] Yessi Renee [address] HEMATOLOGY AND ONCOLOGY [place], [place] [address] 04/09/2024 10:00 AM EST Infusion Hematology Oncology at [address] [phone] 04/23/2024 9:30 AM EST Office Visit Hematology/Oncology at [address] [phone] Cl Hess MD [facility] [place] [address] Yessi Renee APRN [address] [place] [address] DR HEMATOLOGY AND ONCOLOGY [place], [place] [address] 04/23/2024 10:00 AM EST Infusion Hematology Oncology at [address] [phone] 05/18/2024 4:30 PM EDT TH Visit (TeleHealth) [place] [address] Malachi Rothman MD [facility] [place] [address] documented as of this encounter Visit Diagnoses Not on filedocumented in this encounter Care Teams Car Barn Laborer Relationship Specialty Start Date End Date Tristen Hunter MD [address] [place] [address] [place] [address] PCP - General Family Medicine 07/04/23 documented as of this encounter
--- OUTSIDE RECORDS SUMMARY | 2024-03-12 10:48 | XMS_ITS | Encounter Summary ---
Author Organization [facility] Address [facility] [place] [address] Care Team Providers Care Manager Of Construction Name Role Phone Tristen Hunter MD Primary Care Provider Encounter Details Date Type Department Care Team (Late st Contact Info) Description 02/04/2024 10:00 AM EST Telephone Hematology/Oncology at [address] [phone] [facility] DR HEMATOLOGY [place] [address] Social History Tobacco Use Types Packs/Day Years Used Date Smoking Tobacco: Former Cigarettes 4 30 1 3 - 1992 Smokeless Tobacco: Never Alcohol Use Standard Drinks/Week Comments Yes 7 (1 standard drink = 0.6 oz pur e alcohol) [facility] Utilities Answer Date Recorded In the past 12 months has [employer] electric, gas, oil, or water company threatened [...] any time in the past 12 m [facility], were you homeless or living in a longterm (including now)? No 01/24/2024 IPV Inpatient Questions [...] encounter Miscellaneous Notes * Telephone Encounter - Luep Velasquez, RD - 02/04/2024 10:38 AM EST Nutrition Note Called and spoke with Wero on the phone today. Patient was discharged on Wednesday 01/31 from inpatient stay at . 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 Patient had TPN while inpatient which was discontinued on 01/30. He was discharged home on carb controlled diet. Patient completed SBRT on 11/26. He completed 8 cycles of mFolfirinox 07/11-10/18/23. Patient reports he went to the ED yesterday for dehydration, low BP. He says his BG was >400. Hesaid he just has been sitting and listening to the TV all day and wasn't drinking enough. He ate a ham and cheese sandwich at the ED yesterday and tolerated this well. He ate 4 donut holes this morning and plans to have lunch soon - poached eggs on toast. He is keeping ice water next to his chair to drink. He is followed by diabetes client support coordinator (Alley) at [facility] who advised him yesterday to increase long-acting insulin to 22 units/day. She reviews his CGM records. He continues to takehis sliding scale Fiasp insulin. He was told to decrease Creon 24 dosing to 1 per meal and maybe none with snacks. He had been taking 3-4 per meal and 1-2 per snack prior to surgery. He says he was incontinent of feces twice yesterday. Home health has not yet come to his home for initial visit. He was expecting them to come this morning. He lives at home with his brother. He was discharged with HEATHER drain in place. Wt Readings from Last 10 Encounters: 02/01/24 [...] 07/31/22-07/05/23 Lost 85# total per patient Diet: See above. Patient says his goal is to eat 5 times daily. Prior to surgery, he typically ate 3 meals daily and tolerated large portions. He fixes his own breakfast, has meals on wheels mid-day and eats what his brother prepares in the evening. Drinking ice water and working on increasing intake after ED visit yesterday. Medications: Augmentin, amlodipine, aspirin, atorvastatin, carvedilol, chlorthalidone, folic acid, Fiasp sliding scale insulin (unchanged), Tresiba insulin (reduced to 20 units in AM), imdur, Creon 24: 3-4 per meal, 1-2 per snack prior to surgery, lisinopril, omega 4-AOV-RUV-fish oil, flomax Labs on 01/31: Na 133L, K 4.3, BUN 20, Creat 0.71L, BG 151, H/H 9.2/27.5 01/22: A1C 7.0% Nutrition Problem: Inadequate intake related to s/p Whipple procedure as evidenced by ED visit for dehydration on 02/02. Estimated needs based on 86.3 k1958-1401 kcals (25-30 kcal/kg) 86-112 g protein (1-1.3 g/kg) 1 ml/kcal fluids Recommendations: Encouraged patient to follow pattern of 6-8 small meals/snacks per day. Suggested he use his phone to set an alarm to remind him to eat/drink every 2-3 hours. Encouraged small portions, including protein each time. Suggested having 2 bottles Glucerna protein drink per day - he has this at home. Discussed importance of drinking at least 2 liters (64 oz) hydrating fluids daily - may tolerate majority of this well between solid food meals/snacks. Creon 24: recommend starting with 1 capsule per meal/snack. Given incontinence yesterday, discussedhe may need to go up to 2 capsules with larger meals. He was taking 3-4 per meal and 1-2 per snack prior to surgery. Left voicemail for [facility] as they have not yet had initial visit. Will f/u next week on 02/09 documented in this encounter Plan of Treatment Upcoming Encounters Date Type Department Care Team (Late st Contact Info) Description 03/24/2024 9:00 AM EST TH Visit (TeleHealth) Radiation Oncology at [address] [phone] Ping Moore PA [facility] H[place]ATOLOGY [place] [address] 03/26/2024 9:30 AM EST Office Visit Hematology/Oncology at [address] [phone] [address] HEMATOLOGY AND ONCOLOGY [place], [place] [phone] 03/26/2024 9:30 AM EST Infusion Hematology Oncology at [address] [phone] 04/09/2024 9:30 AM EST Office Visit Hematology/Oncology at [address] [phone] Cl Hess MD [facility] [place] [address] Yess[address] Renee [address] HEMATOLOGY AND ONCOLOGY [place], [place] [phone] 04/09/2024 10:00 AM EST Infusion Hematology Oncology at [address] [phone] 04/23/2024 9:30 AM EST Office Visit Hematology/Oncology at [address] [phone] Cl Hess MD [facility] [place] [address] Yessi Renee APRN [address] [place] [address] DR HEMATOLOGY AND ONCOLOGY [place], [place] [address] 04/23/2024 10:00 AM EST Infusion Hematology Oncology at [address] [phone] 05/18/2024 4:30 PM EDT TH Visit (TeleHealth) [place] [address] Malachi Rothman MD [facility] [place] [address] documented as of this encounter Visit Diagnoses Not on filedocumented in this encounter Care Teams Manager Of Construction Relationship Specialty Start Date End Date Tristen Hunter MD [address] [place] [address] [place] [address] PCP - General Family Medicine 07/04/23 documented as of this encounter
--- OUTSIDE RECORDS SUMMARY | 2024-03-12 10:48 | XMS_ITS | Encounter Summary ---
Author Organization [facility] Address [facility] [place] [address] Care Team Providers Care Track Inspector Name Role Phone Tristen Hunter MD Primary Care Provider [phone] Encounter Details Date Type Department Care Team (Late st Contact Info) Description 03/12/2024 10:30 AM EST Clinical Support Hematology/Oncology at [address] [phone] [facility] DR HEMATOLOGY [place] [address] Arrived Social History Tobacco Use Types Packs/Day Years Used Date Smoking Tobacco: Former Cigarettes 4 30 1 963 - 1992 Smokeless Tobacco: Never Alcohol Use Standard Drinks/Week Comments Yes 7 (1 standard drink = 0.6 oz pur e alcohol) [facility] Utilities Answer Date Recorded In the past 12 months has [employer], gas, oil, or water company threatened [...] in a intermediate (including now)? No 06/04/2023 Housing Stability Vital Sign Answer Meek e Recorded In the last 12 months, was t here a time when you were not able to pay the mortgage or rent on time? No 01/24/2024 In the past 12 months, how m any times have you moved where you were living? 0 01/24/2024 At any time in the past 12 m [facility], were you homeless or living in a intermediate (including now)? No 01/24/2024 IPV Inpatient Questions [...] TH Visit (TeleHealth) Radiation Oncology at [address] [phone] Ping Moore PA [facility] HEMATOLOGY [place] [address] 03/26/2024 9:30 AM EST Office Visit Hematology/Oncology at [address] [phone] [address] HEMATOLOGY AND ONCOLOGY [place], [place] [phone] 03/26/2024 9:30 AM EST Infusion Hematology Oncology at [address] [phone] 04/09/2024 9:30 AM EST Office Visit Hematology/Oncology at [address] [phone] Cl Hess MD [facility] [place] [address] [address] HEMATOLOGY AND ONCOLOGY [place], [place] [phone] 04/09/2024 10:00 AM EST Infusion Hematology Oncology at [address] [phone] 04/23/2024 9:30 AM EST Office Visit Hematology/Oncology at [address] [phone] Cl Hess MD [facility] [place] [address] [address] [place] [address] 04/23/2024 10:00 AM EST Infusion Hematology Oncology at [address] [phone] 05/18/2024 4:30 PM EDT TH Visit (TeleHealth) [place] [address] Malachi Rothman MD [facility] RADI[place] [address] documented as of this encounter Visit Diagnoses Not on filedocumented in this encounter Care Teams Track Inspector Relationship Specialty Start Date End Date Tristen Hunter MD [address] [place] [address] [place] [address] PCP - General Family Medicine 07/04/23 documented as of this encounter
--- OUTSIDE RECORDS SUMMARY | 2024-03-12 10:48 | XMS_ITS | Encounter Summary ---
[place] [address] Care Team Providers Care Respiratory Technician Name Role Phone Tristen Hunter MD Primary Care Provider [phone] Encounter Details Date Type Department Care Team (Late st Contact Info) Description 02/25/2024 1:00 PM EST TH Visit (TeleHealth) Hematology/Oncology at [address] [phone] Yessi Renee, [address] H[place] [address] Malignant neoplasm of head of [...] a care home (including now)? No 06/04/2023 Housing Stability [...] any time in the past 12 m [facility], were you homeless or living in a care home (including now)? No 01/24/2024 DH IPV Inpatient [...] as of this encounter Progress Notes * Yessi Renee, FUR WEIGHER - 02/25/2024 1:00 PM EST Subjective Patient ID: Wero Sdaler is 74 y.o. Problem List: Pancreatic cancer, T3 (per EUS report), N0 M0; borderline resectable. A. Reportedly was noted to have a [...] periduodenal or perilesional adenopathy was appreciated Impression: [id number] pancreas head mass lesion with biliary and [...] disease/disease progression on interim staging evaluation. E. [facility] second read of CT c/a/p from 05/22/23 [...] disease. G. 07/12/23 - Began therapy with mFolfirinox, s/p [address] c/a/p 09/02/23 Chest - Impression: [...] contrast and food filled stomach 3. Constipation CT c/a/p 10/23/23 Chest - Impression: 1. Stable CT examination of the chest. No evidence of metastatic disease 2. Diffuse calcification of coronary arteries Abd/pelvis - Impression: 1. Stable pancreatic head cyst along with moderate dilatation of the main pancreatic duct and diffuse pancreatic gland atrophy unchanged 2. Stable location of distal common bile duct stent with associated pneumobilia 3. Large amount of stool throughout the colon likely reflecting some degree of constipation 4. Diffuse atherosclerotic changes of the abdominal aorta and iliac vessels redemonstrated I. Completed SBRT on 11/27/23 J. Whipple Procedure with omental flap and portal vein repair, 01/23/24 A. Lymph Node: Lymph node, negative for carcinoma (0/1). B. Pancreas, head of pancreas, duodenum, bile duct, gallbladder, antrum Excision: Residual invasive pancreatic ductal carcinoma, see Synoptic Report below. Gallbladder, negative for carcinoma. Omentum with fibrosis, negative for carcinoma. at 1436 Synoptic Report PANCREAS (EXOCRINE) 8th Edition - Protocol posted: 2PANCREAS (EXOCRINE) - All Specimens SPECIMEN Procedure Pancreaticoduodenectomy (Whipple resection), partial pancreatectomy TUMOR Tumor Site Pancreatic head Histologic Type Ductal adenocarcinoma (NOS) Histologic Grade G2, moderately differentiated Tumor Size Greatest Dimension (Centimeters): 3.6 cm Site(s) Involved by Direct Tumor Extension Ampulla of Vater or sphincter of Oddi Treatment Effect Present, with residual cancer showing evident tumor regression, but more than single cells or rare small groups of cancer cells (partial response, score 2) Lymphovascular Invasion Present Perineural Invasion Not identified MARGINS Margin Status for Invasive Carcinoma Invasive carcinoma present at margin Margin(s) Involved by Invasive Carcinoma Uncinate (retroperitoneal / superior mesenteric artery) Margin Status for Dysplasia and Intraepithelial Neoplasia All margins negative for dysplasia and intraepithelial neoplasia 2. Colorectal cancer S/p resection in 2008 [...] The history is summarized above. Today's visit was changed to a telephone visit due to the snowstorm. Mauri is doing well, thinks he's getting better every day. Blood sugars have been average got him running 130 - low 200's. Denies any pain, nausea, vomiting, or changes to his bowels. Denies fevers or chills. Blood sugars have been pretty stable. Thinks his eating is going okay, also improving over time. He is taking creon with meals (3-4 with meals and 1-2 snacks). 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 Objective Physical Exam Vitals reviewed. Constitutional: General: He is not in acute distress. HENT: Head: Normocephalic and atraumatic. Eyes: General: No scleral icterus. Cardiovascular: Rate and Rhythm: Normal rate. Pulmonary: Effort: Pulmonary effort is normal. No respiratory distress. Abdominal: General: Bowel sounds are normal. There is no distension. Palpations: Abdomen is soft. Tenderness: There is no abdominal tenderness. There is no guarding or rebound. Musculoskeletal: General: No swelling. Skin: General: Skin is warm and dry. Findings: No rash. Neurological: General: No focal deficit present. Mental Status: He is alert. Coordination: Coordination normal. Psychiatric: Mood and Affect: Mood normal. There were no vitals taken for this visit. Labs: WBC/ANC 4.07/2499, Hgb/Hct 9.5/27.9, Plts 166,000, BUN/Cr 12/0.84, t bili 1.4, glucose 283, albumin 3.2, remainder of CMP otherwise unremarkable. CA 19-9 02/20/24 13 12/12/23 60 11/28/23 91 11/19/23 70 11/01/23 10/17/23 10/03/23 99 09/19/23 151 08/30/23 242 08/08/23 317 06/25/23 390 05/22/23 684.7 Assessment and Plan Wero Sadler is 74 y.o., seen for evaluation and management of pancreatic cancer. He has a h/o multiple medical problems as above, including colon cancer, prostate cancer, ASCVD, PVDz s/p carotid endarterectomy, prior CVA, DM and others. 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 While in [facility], he presented with chest pain and [...] says that upfront chemotherapy was also discussed. He met Dr. Hess on 06/07/23. Pathology was requested for review at [facility] and we also requested that images be [...] PS, our preference is generally for mFolfirinox. His case was reviewed at [facility] on 06/18/23. The Ct from 05/22/23 was available for review. There is a mixed cystic and solid lesion centered at the pancreatic head. The solid component abuts the SMA, less than 180 degrees. The cystic component is associated with mass effect upon the SMV and portal vein without luminal narrowing. The primary tumor was considered [...] plan was for a blood draw in [facility] once he starts his infusions. If genetic testing showed a BRCA or PALB2 mutation, he may be eligible for a clinical trial looking at theuse olaparib following completion of chemotherapy and surgery to see if this improves RFS. He is also being followed by our clinical car wash attendant, Lupe Velasquez. On 07/12/23 he began neoadjuvant therapy with mFolfirinox. 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 He has received 8 cycles. He has tolerated therapy pretty well overall. A restaging CT scan was done on 10/23/23. There is no evidence of distant metastatic disease. The cystic pancreatic head mass is stable. He met with Dr. Rothman in Radiation Oncology at [facility] on 10/25/23. He completed SBRT on 11/27/23 and tolerated this as well also. Wero underwent a Whipple procedure on 01/23/24, path shows disease response, and unfortunately a positive margin. The plan will be to complete four more cycles of mFolfirinox with the same reductions as prior. We will ask him to RTC in about 2-3 weeks time to get this started. documented in this encounter Plan of Treatment Upcoming Encounters Date Type Department Care Team (Late st Contact Info) Description 03/24/2024 9:00 AM EST TH Visit (TeleHealth) Radiation Oncology at [address] [phone] Ping Moore PA [facility] HEMATOLOGY [place] [address] 03/26/2024 9:30 AM EST Office Visit Hematology/Oncology at [address] [phone] Yessi Renee APRN [address] [place] [address] DR HEMATOLOGY AND ONCOLOGY [place], [place] [phone] 03/26/2024 9:30 AM EST Infusion Hematology Oncology at [address] [phone] 04/09/2024 9:30 AM EST Office Visit Hematology/Oncology at [address] [phone] Cl Hess MD [facility] [place] [address] Yessi Renee, [address] HEMATOLOGY AND ONCOLOGY [place], [place] [id number] 04/09/2024 10:00 AM EST Infusion Hematology Oncology at [address] [phone] 04/23/2024 9:30 AM EST Office Visit Hematology/Oncology at [address] [phone] Cl Hess MD [facility] [place] [place] [address] HEMATOLOGY AND ONCOLOGY [place], [place] [phone] 04/23/2024 10:00 AM EST Infusion Hematology Oncology at [address] [phone] 05/18/2024 4:30 PM EDT TH Visit (TeleHealth) [place] [address] Malachi Rothman MD [facility] [place] [address] documented as of this encounter Visit Diagnoses Diagnosis Malignant neoplasm of head of pancreas documented in this encounter Care Teams Respiratory Technician Relationship Specialty Start Date End Date Tristen Hunter MD [address] [place] [address] [place] [address] PCP - General Family Medicine 07/04/23 documented as of this encounter
--- OUTSIDE RECORDS SUMMARY | 2024-03-12 10:48 | XMS_ITS | Encounter Summary ---
[place] [address] Care Team Providers Care Sales Solutions Associate Name Role Phone Tristen Hunter MD Primary Care Provider [phone] Encounter Details Date Type Department Care Team (Late st Contact Info) Description 02/25/2024 Telephone Hematology/Oncology at [address] [phone] Jackie Driver Social History Tobacco Use Types Packs/Day Years Used Date Smoking Tobacco: Former Cigarettes 4 30 1 963 - 1992 Smokeless Tobacco: Never Alcohol Use Standard Drinks/Week Comments Yes 7 (1 standard drink = 0.6 oz pur e alcohol) [facility] Utilities Answer Date Recorded In the past 12 months has [employer], gas, oil, or water company threatened [...] in a retirement (including now)? No 06/04/2023 Housing Stability Vital Sign Answer Meek e Recorded In the last 12 months, was t here a time when you were not able to pay the mortgage or rent on time? No 01/24/2024 In the past 12 months, how m any times have you moved where you were living? 0 01/24/2024 At any time in the past 12 m onths, were you homeless or living in a retirement (including now)? No 01/24/2024 IPV Inpatient Questions [...] encounter Miscellaneous Notes * Telephone Encounter - Jackie Driver Thao - 02/25/2024 8:47 AM EST Wero tried to reschedule his visit today at 1pm. I left him a voicemail to see if he is willing to switch it to a phone visit instead of rescheduling. I requested he return a call to the office to confirm. documented in this encounter Plan of Treatment Upcoming Encounters Date Type Department Care Team (Late st Contact Info) Description 03/24/2024 9:00 AM EST TH Visit (TeleHealth) Radiation Oncology at [address] [phone] Ping Moore PA [facility] DR HEMATOLOGY [place] [address] 03/26/2024 9:30 AM EST Office Visit Hematology/Oncology at [address] [phone] HEMATOLOGY AND ONCOLOGY [place], [place] [phone] 03/26/2024 9:30 AM EST Infusion Hematology Oncology at [address] [phone] 04/09/2024 9:30 AM EST Office Visit Hematology/Oncology at [address] [phone] Cl Hess MD [facility] [place] [address] HEMATOLOGY AND ONCOLOGY [place], [place] [phone] 04/09/2024 10:00 AM EST Infusion Hematology Oncology at [address] [phone] 04/23/2024 9:30 AM EST Office Visit Hematology/Oncology at [address] [phone] Cl Hess MD [facility] [place] [address] Yesis Renee APRN [address] [place] [address] DR HEMATOLOGY [place] [address] 04/23/2024 10:00 AM EST Infusion Hematology Oncology at [address] [phone] 05/18/2024 4:30 PM EDT TH Visit (TeleHealth) [place] [address] Malachi Rothman MD [facility] DR RADIATION [place] [address] documented as of this encounter Visit Diagnoses Not on filedocumented in this encounter Care Teams Sales Solutions Associate Relationship Specialty Start Date End Date Tristen Hunter MD [address] [place] [address] [place] [address] PCP - General Family Medicine 07/04/23 documented as of this encounter
--- OUTSIDE RECORDS SUMMARY | 2024-03-12 10:49 | XMS_ITS | Encounter Summary ---
[place] [address] Care Team Providers Care Environmental Analyst Name Role Phone Tristen Hunter MD Primary Care Provider [phone] Reason for Visit * Auth/Cert (Routine) Specialty Diagnoses / Procedures Referred By Contac t Referred To Contact Diagnoses PANCREAS CANCER Procedures PRO PART REMV PANC, PROX+REMV DUOD+ANAST @IPPLE PROCEDURE (WRVU 52.84) Tor Balbuena MD [facility] [place] [address] [facility] Referral ID Status Reason Start Date Expiration Date Visits Re quested Visits Authorized [id number] 1 1 Encounter Details Date Type Department Care Team (Late st Contact Info) Description 01/23/2024 6:12 AM EST - 02/01/2024 12:51 PM EST Hospital Encounter Surgical Unit Level 4 [place] [id number] Tor Balbuena MD [facility] [place] [address] Malignant neoplasm of head of pancreas (Primary Dx); ASCVD (arteriosclerotic cardiovascular disease); Hx of CABG; Malignant neoplasm of pancreas, unspecified location of malignancy Discharge Disposition: Home Social History Tobacco Use [...] place to sleep or slept in a chcf (including now)? No 06/04/2023 Housing Stability Vital [...] were you homeless or living in a chcf (including now)? No 01/24/2024 DH IPV Inpatient [...] Sign Reading Time Taken Comments Blood Pressure 151/63 02/01/2024 8:00 AM EST Pulse 78 01/31/2024 3:43 AM EST Temperature 36.5 ??C (97.7 ??F) 02/01/2024 8:00 AM ES T Respiratory Rate 16 02/01/2024 8:00 AM EST Oxygen Saturation 98% 02/01/2024 8:00 AM EST Inhaled Oxygen Concentration - - Weight 86.3 kg (190 lb 4.1 oz) 02/01/2024 6:56 A M EST Height 175.3 cm (5' 9) 01/23/2024 6:26 AM EST Body Mass Index 28.1 01/23/2024 6:26 AM EST documented in this encounter Discharge Summaries * Tor Balbuena MD - 02/01/2024 7:29 AM EST Images from the original note were not included. Surgical Oncology Inpatient - Discharge Summary Patient Name: Wero Sadler Patient Age: 74 y.o. Birthdate: 1950 Admit date: 01/23/2024 Discharge date: 02/01/2024 Admitting Physician: Tor Balbuena MD Primary Diagnosis: Pancreatic cancer Secondary Diagnosis: Active Hospital Problems Diagnosis Pancreatic cancer Resolved Hospital Problems No resolved problems to display. Active Non-Hospital Problems Diagnosis Malignant neoplasm of head of pancreas Bradycardia Bladder dysfunction/retention with risk of stretch injury s/p Right JIMI (Posterior), Dr. 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 Wu, 10/10/20 ASCVD (arteriosclerotic cardiovascular disease) History of carotid endarterectomy Colorectal cancer Diabetes mellitus Hypercholesterolemia Hypertension -Labile blood pressurses HPI: Wero Sadler is a 73 y.o. male with PMH of colon cancer (resected 2008), prostate cancer (s/p androgen deprivation and RT), ASCVD (s/p 3 vessel CABG), PVD s/p carotid endarterectomy, prior CVA, HLD, HTN, OLGA, IDDM and pancreas cancer s/p neoadjuvant chemotherapy with 8 cycles of mFOLFIRINOXand SBRT who ultimately presented for elective Whipple procedure on 01/23/24. Operations/Major Procedures: Operations: 01/23/2024 Surgeons and Role: * Tor Balbuena MD - Primary * Uday Gomes MD - Resident - Assisting * Joe Espinosa MD - Assisting Attending: Procedure(s): @WHIPPLE PROCEDURE PORTAL VEIN REPAIR @OMENTAL FLAP, INTRA-ABDOMINAL Operative Findings: No evidence for metastatic disease. The liver was very healthy appearing. The initial dissection was somewhat difficult due to his prior distant colectomy surgery. The resection though otherwise went very well until the last step of the operation where we are performing the skeletonization of the SMA and mobilizing the portal vein away from the adjacent pancreatic head. We encountered a tear in the lateral and posterior aspect of the portal vein just opposite the splenic vein confluence. A primary repair was too difficult given the extensive bleeding and therefore we placed fibular and Ethicon snow along the portal vein tear in order to temporarily obtain hemostasis so that we could complete the resection, removed the specimen and then set about obtaining both inflow and outflow control with Brandon Vesseloops around the SMV, splenic vein and portal vein. Once this was accomplished full dose heparin was given and then inflow and outflow were occluded to allow us to perform the repair. There was a relatively large 1 cm tear in an oblique fashion along the lateral portal vein and a separate tear posterior to that making the repair somewhat complex. This was accomplished with 5-0 Prolene. Ultimately the repair went quite well and we were able to release the inflow and outflow, reestablish portal venous flow to the liver and hemostasis was excellent. The reconstruction was a retromesenteric and to side Blumgart type pancreaticojejunostomy with bovine pericardial patch pledgets and internalized 5 Samoan pancreatic duct stent. The bile duct was quite dilated measuring about 15 mm in an end to side hepaticojejunostomy anastomosis was created. Finally in order to restore intestinal continuity a defect was created in the transverse mesocolon to the left of the middle colic vessels to allow the jejunum to be brought up in his retromesenteric location into the supracolic abdomen where a kumi-cy-hkcj, retrogastric Billroth II type gastrojejunostomy was created. The 19 Samoan Kd drain was placed into Morison's pouch and then passed posterior to the bile duct anastomosis and then anterior to the pancreatic anastomosis. The omental pedicle flap created from the falciform ligament was used to cover the right gastric artery and GDA stumps. Hospital Course: Wero Sadler was admitted to [facility] on 01/23/2024 via the Same Day Program. He was brought to the operating room on 01/23/[address] Balbuena performed surgery as described above. He tolerated the operation well and without complication. He was admitted post- operatively for continued rehabilitation, clinical monitoring and further management. The patient's hospital course is detailed below: 01/22 POD0: To OR for exploratory laparotomy, Whipple procedure c/b portal vein tear necessitating inflow and outflow occlusion (full dose heparin given) to allow for primary venorrhaphy, internalized pancreatic duct stent, Billroth II reconstruction. 2000 mL EBL, 3u PRBC given intra-op. 17 Fr Kd drain posterior to HJ, anterior to PJ. Epidural, krause, NGT, a-line in place. Requiring low-dose pressors, epidural wean, and fluid resuscitation overnight for hypovolemic/vasoplegic shock. 01/23 POD1: HEATHER amylase 12. Started on ASA suppository due to primary PV venorrhaphy. Maintain NGT to LCWS. Intra-op bile fluid cultures with no growth, periop zosyn timed out. Weaned off pressor support, A line discontinued. 01/24 POD2: HEATHER amylase 7. Decrease IVF, downgrade to floor. 01/25 POD3: HEATHER amylase 4. Passing flatus. Failed NGT clamp trial due to distention, nausea, and high bilious output. 15u glargine added due to hyperglycemia >150. 01/26 POD4: Overnight increased drain output slightly more sanguinous in character, Hgb stable at 8.5, CTA abdomen/pelvis with no e/o pseudoaneurysm or active bleeding. Given increased output and chylous fluid intra-op, sent for HEATHER triglycerides which were low (48), no chyle leak. HEATHER amylase <3 - no e/o biochemical leak, drain removed. Maintain NGT to LCWS. TPN via Mediport with 12u insulin per DM recs. Suppository given with subsequent BM. St 4 infiltrate of K Cl & NS - treating with hyaluronidase. Intra-op bile fluid cultures growing bacteroides fragilis - started on empiric Zosyn. 01/27 POD5: Hypertensive with SBP into low 200s with associated CP so EKG obtained showing PACs andRBBB, troponin-T x2 WNL. Started on scheduled IV lopressor. IV Lasix 20mg x 1. TPN concentrated. Ongoing high bilious NGT output - maintain NGT to LCWS, started on scheduled IV Reglan for delayed gastric emptying. Increased bloody drainage from his HEATHER drain site requiring an ostomy bag over the site. 01/28 POD6: Trace s/s drainage from his HEATHER drain site, cont TPN via Mediport, NGT clamp trial, 01/29 POD7:Passed clamp trial, NGT d/c'd, tolerating CLD, continues to pass flatus, epidural removed, krause removed and voiding, diet advanced to 1/2 portion CC. 01/30 POD8: Ostomy appliance overlying HEATHER drain incision with trace serosanguinous output, removed and replaced with mepilex dressing. Diet advanced to full portion CC and patient tolerating, d/c'd TPN, Hgb 7.6, 1uPRBC transfused given cardiac Hx, cont zosyn. Patient required blood transfusions both intraoperatively and post-operatively for acute blood lossanemia. He was deemed stable for discharge on post-operative day 9 having achieved adequate pain control onoral analgesics, ambulating and voiding independently, tolerating a carb controlled diet, and having regular bowel movements. Important Studies and Lab Data: See below. Pathology: Final surgical pathology pending Microbiology: Intra-op bile fluid 01/22: Rare Bacteroides fragilis group Microbiology Results (last 7 days) Procedure Component Value - Date/Time Tissue Culture, Aerobic & Anaerobic [[id number]] (Abnormal) Collected: 01/23/241053 Lab Status: Final result Specimen: Tissue from Bile Duct Updated: 01/27/24 1501 Narrative: The following orders were created for panel order Tissue Culture, Aerobic & Anaerobic. Procedure Abnormality Status --------- ------ Tissue Culture, Aerobic ...[[id number]] Final result Anaerobic Culture[[id number]] Abnormal Final result Please view results for these tests on the individual orders. Anaerobic Culture [[id number]] (Abnormal) Collected: 01/23/241053 Lab Status: Final result Specimen: Tissue from Bile Duct Updated: 01/27/24 1501 Anaerobic Culture Rare Bacteroides fragilis group Tissue Culture, Aerobic Only [[id number]] Collected: 01/23/241053 Lab Status: Final result Specimen: Tissue from Bile Duct Updated: 01/27/24 1101 Tissue Culture No growth Gram Stain No neutrophils seen No microorganisms seen Coverage w/ abx for 7 days (Zosyn , Augmentin 01/31-02/01) Labs: Lab Results Component Value Date Sodium 133 (L) 02/01/2024 Potassium 4.3 02/01/2024 Chloride 98 02/01/2024 Carbon Dioxide 27 02/01/2024 Blood Urea Nitrogen 20 02/01/2024 Creatinine 0.71 (L) 02/01/2024 Glucose 151 02/01/2024 CBC Lab Results Component Value Date White Blood Cell 6.27 02/01/2024 Hemoglobin 9.2 (L) 02/01/2024 Hematocrit 27.5 (L) 02/01/2024 Platelet 289 02/01/2024 Lab Results Component Value Date PREALBUMIN 23 07/14/2021 No results for input(s): PT, PTT, INR in the last 168 hours. Pending Lab Data at Discharge: No current labs Studies: CTA Abdomen/Pelvis 01/27/24: IMPRESSION * Moderate pneumoperitoneum, may be more so than expected 4 days postop. * Small to moderate volume scattered abdominopelvic free fluid. * Extensive edema/fluid in the region of the sarbjit hepatis. * Suspect colitis involving the hepatic flexure. * No active extravasation or pseudoaneurysm identified on either portal and arterial phases. * Large bowel ileus. * Partially imaged small pleural effusions with adjacent atelectasis. * Nonspecific urinary bladder wall thickening, correlate for any concern of cystitis (intravesicular air may be iatrogenic). * Please see above for details and ancillary findings. Discharge Exam: Last value Range last 12 hrs Temperature Temp: 36.6 ??C (97.9 ??F) Temp: [36.6 ??C (97.9 ??F)] Heart Rate Heart Rate: 78 Heart Rate: -- Blood Pressure BP: 144/66 BP: (138-144)/(56-66) Respiratory Rate Resp: 19 Resp: [19] SpO2 SpO2: 98 % SpO2: [96 %-98 %] I/Os: I/O last 3 completed shifts: In: 1832 [P.O.:210; I.V.:5] Out: 1320 [Urine:1300; Other:20] No intake/output data recorded. Gen: NAD, resting comfortably, pleasant, conversant HEENT: sclerae nonicteric. CV : RRR Pulm: breathing comfortably on RA, no respiratory distress Abd: non-distended, soft, nontender . incision well-approximated with jay, no erythema/drainage. Mepilex overlying prior R HEATHER site c/d/i Skin: warm, dry Drains/lines at discharge: implantable port Discharge Plans: Discharge to: Home VNA: Yes HOME HEALTH CARE AGENCY: [facility] [address] [place] [id number] Discharge Conditions/Prognosis: Stable Discharge Medications: The following medications have been prescribed for you. If you notice any adverse reactions to your medications, please contact your primary care physician immediately or go tothe nearest Emergency Department. Your Medications New Medications Dose Details amoxicillin-clavulanate 875-125 mg tablet Commonly known as: Augmentin Take 1 tablet by mouth 2 times daily for 2 days. 1 tablet Quantity: 3 tablet Refills: 0 Continued medications, unchanged Dose Details amLODIPine 10 mg tablet Commonly known as: Norvasc Take 0.5 tablets by mouth daily. Amlodipine (Hold if SBP<120) 5 mg Refills: 0 aspirin EC 81 mg EC (DR) tablet Take 81 mg by mouth daily. 81 mg Refills: 0 atorvastatin 80 mg tablet Commonly known as: Lipitor Take 1 tablet by mouth every evening. 80 mg Quantity: 90 tablet Refills: 3 carvediloL 25 mg tablet Commonly known as: Coreg Take 1 tablet by mouth 2 times daily (with meals). Carvedilol (hold for SBP <110, Hr <60) 25 mg Refills: 0 chlorthalidone 25 mg tablet Commonly known as: Hygroton Take 25 mg by mouth daily. 25 mg Refills: 0 erythromycin 5 mg/gram (0.5 %) Ointment Commonly known as: Romycin Place 1 Tube into the left eye once a week. 1 Tube Refills: 0 folic acid 1 mg tablet Commonly known as: Vitamin B9 Take 1 tablet by mouth daily. 1,000 mcg Quantity: 90 tablet Refills: 3 Insulin Fiasp FlexTouch U-100 100 unit/mL (3 mL) Insulin Pen Inject 3 mLs subcutaneously 4 times daily. Generic drug: insulin aspart (niacinamide) 3 mL Refills: 0 Insulin Tresiba FlexTouch U-100 100 unit/mL (3 mL) Insulin Pen 30 units in the AM Takes half a dose on radiation tx days Took 15 units 11/15/23 Took 15 units 11/21/23 Generic drug: insulin degludec Refills: 0 isosorbide mononitrate CR 30 mg ER 24 hr tablet Commonly known as: Imdur Take 1 tablet by mouth nightly. 30 mg Quantity: 30 tablet Refills: 12 iohepy-nxcxsawa-ngwkwlj DR 24,000-76,000 -120,[address] capsule Commonly known as: Creon 24 Take 3 per meal three times daily and 2 per snack three times daily (15 capsules/day) Quantity: 450 capsule Refills: 11 lisinopriL 40 mg tablet Commonly known as: Zestril Take 1 tablet by mouth daily. Lisinopril (hold for SBP <130) 40 mg Refills: 0 omega 0-dai-fki-fish oil 250-350-1,000 mg Capsule Take 1,000 mg by mouth. 1,000 mg Refills: [address] capsule Commonly known as: PriLOSEC Take 20 mg by mouth daily. 20 mg Refills: 0 tamsulosin 0.4 mg capsule Commonly known as: Flomax Take 1 capsule by mouth nightly. 0.4 mg Quantity: 30 capsule Refills: 11 timoloL 0.5 % Drops Commonly known as: Timoptic daily. Refills: 0 STOPPED Medications ondansetron 8 mg tablet Commonly known as: Zofran prochlorperazine 10 mg tablet Commonly known as: Compazine Updated Allergies/ADRs: Allergies Allergen Reactions Belinostat Other (See Comments) [...] a dye used during vascular procedure at [facility] in [place]: shaking Has tolerated MRI and CT contrast. Pazopanib Other (See Comments) UGT1A1 Poor Metabolizer. See Clinical Pharmacist Note from 07/04/23 for information. Sacituzumab Govitecan-Hziy Other (See Comments) UGT1A1 Poor Metabolizer. See Clinical Pharmacist Note from 07/04/23 for dosing recommendations. Scheduled Appointments: Future Appointments Date Time Provider Department Center 02/07/2024 12:30 PM NURSE, GENERAL SURGERY [facility] 02/18/2024 12:15 PM LAB, THREE L Lab 3L IS[facility] JEANNIENIMO 02/18/2024 1:00 PM Tor Balbuena MD [facility] 02/18/2024 2:[address] [facility] 02/20/2024 10:00 AM Cl Hess MD [facility] 03/24/2024 9:00 AM Ping Moore PA [facility] 05/18/2024 4:30 PM Malachi Rothman MD [facility] RAD OFF [facility] Outpatient Services/Studies: CBC (with Diff) Standing Status: Future Standing Exp. Date: 01/30/25 Comprehensive metabolic panel Non-fasting Standing Status: Future Standing Exp. Date: 01/30/25 Question Response Notes Fasting required? Non-fasting Magnesium Standing Status: Future Standing Exp. Date: 01/30/25 Phosphorus Standing Status: Future Standing Exp. Date: 01/30/25 Prealbumin Standing Status: Future Standing Exp. Date: 01/30/25 Instructions Given to Patient at Discharge:. An After Visit Summary was printed and given to the patient. Patient Instructions Patient given following instructions (aware to follow provider instructions if they differ) via phone call. Patient verbalized understanding of the information reviewed: U100 & U200 Degludec (Tresiba): Reduce AM dose by 20% on Take 30 units. Type 2 DM reduce dose by 50% on DOS Will take 18 units, as his injector only has even units available. PANCREAS Surgery Discharge Instructions Who to call with questions or concerns: - During day hours call the nurses in the Surgery Clinic at [phone]. - During the night time hours call the hospital transfer table operator helper [phone] and ask to speak to the general surgery resident security and privacy consultant. Instructions for when you are home: Diet: Ok to eat a carb control diet as tolerated. It is important to try to eat as much calories and protein as possible during recovery to aid in healing. You frequently may feel full easily or evenhave nausea. Take small meals at first and pace yourself. You may supplement your diet with nutritional shakes/drinks (Ensure, [place] Instant Breakfast, Boost) if possible. Remember to take your pancreatic enzymes (CREON) see below. Enzymes: You will need to take take pancreatic enzyme capsules immediately before meals to maximizeyour nutrient digestion and absorption. This will help you absorb your nutrients as you regain yourappetite. We recommend that you take the pancreatic enzyme capsules at first bite of your meal. Youhave been prescribed Creon: take 1 capsule with meals. You will continue this indefinitely. Monitorstool consistency for adequacy of enzyme dosing. Antacid medications: You should be on an antacid pill such as Proton Pump Inhibitors or H2 blockers such as: Nexium, Prilosec, Protonix or Pepcid. These medications prevent ulcers that can form at the connection between the stomach and intestine after the whipple operation. In addition an antacidwill help your own pancreatic enzymes work better to absorb nutrients. Pain: - A good strategy is to take Tylenol 650 mg every 6 hours for pain relief. Please limit NSAID use (ibuprofen, Motrin, Aleve, etc) as these increase your risk of developing ulcers at the new connections between your stomach and small bowel. Other medications: - The remainder of your medications are listed in the first section of the After Visit Summary. Incision: The skin incision(s) is closed with [place] Usually the jay are removed anywhere from7-14 days after the surgery. You will be discharged with the jay in place to be removed soon after discharge. Be on the watch for changes at the incisions. Look out for redness or drainage. Thesewould be symptoms to alert the nurses in the Surgery Clinic. You have been scheduled for a staple removal in about a week from now (see appointments below). Activity: Be active as tolerated. You will be tired. This is normal. It is ideal if you are up and about as much as possible during the day. You are encouraged to go for walks outside for exercise, weather permitting. The more walking you can do the quicker your recovery. Walking also prevents blood clots. - Use common sense with regard to heavy lifting for approximately 4-6 weeks after surgery or until you are seen by Dr. Balbuena for your postop check in the clinic. Shower: Yes, showering is encouraged and ok. Refrain from baths until approximately 4 weeks after surgery. It is OK to get the incision wet. Follow up appointments: You should have your follow up appointment date and time in scheduled before your discharge. Ask you nurse if this has been scheduled with Dr. Balbuena's office [phone]. In most cases Dr. Balbuena will order blood work to be done on the day of your post op clinic appointment. This decision is made on a ogna-xn-yakp basis so ask if this is necessary and plan to come to [facility] pr ior to the appointment to get the blood work done in 3L as instructed. - Of course, if you are being discharged on a weekend and Dr. Balbuena's office is closed then call the office [phone] first thing Saturday. Future Appointments Date Time Provider Department Center 02/07/2024 12:30 PM NURSE, GENERAL SURGERY [facility] 02/18/2024 12:15 PM LAB, THREE L Lab 3L ISATU RITCHIE 02/18/2024 1:00 PM Tor Balbuena MD [facility] 02/18/2024 2:[address] [facility] 02/20/2024 10:00 AM Cl Hess MD [facility] 03/24/2024 9:00 AM Ping Moore PA [facility] 05/18/2024 4:30 PM Malachi Rothman MD [facility] RAD OFF [facility] A telephone follow-up visit has been requested with our outpatient christmas tree grower Radha Sweet RD whowill call you to discuss your diet/nutrition next week. If any appointments with Radha are listed in the appointment list above BEFORE the date of your postop visit with Dr. Tor Balbuena, please note that this is a telephone visit, NOT an in-person visit. You may have an in-person visit withRadha the same day you return for follow-up with Dr. Tor Balbuena. Other Homework: Know what medications you are taking and take charge of knowing this information. Ask your nurse for the Pocket Medication List to fill in the relevant medications including the medications you were on before surgery in addition to the ones you are being discharged with. You and your nurse can make sure this list matches the list in our computer system so there are no fumbles. If you have concerns or questions: - During the day it is best to call the 4L General Surgery Clinic to speak with the surgery nurses.The number is [phone]. - During the night call the [facility] transfer table operator helper and ask to speak to the surgery resident security and privacy consultant for general surgery. General Instructions Diabetes Discharge Instructions Follow up with your diabetes provider as scheduled Blood Sugar Checks with your Dexcom CGM Every day, please check your blood sugar at these 4 times 1) Before eating breakfast (aka your fasting blood sugar) 2) Before eating lunch 3) Before eating dinner 4) Before going to bed If you have symptoms of low blood sugar or high blood sugar, please check your blood sugar an additional time Daily Long-Acting Insulin Instructions YOUR Long-acting insulin is Tresiba: We have reduced your dose. As discussed this might need to be increased (or decreased). Please monitor your fasting blood sugars to determine if this insulin doseneeds to be adjusted. Take 20 units of long acting insulin in the morning Adjust your long-acting insulin dose as needed according to the following guidelines: If your fasting blood sugars are above 150mg/dl two days in a row, please increase your long-actinginsulin by 2 units. This increased dose becomes your new dose, continue to increase as needed every2-3 days (you can add one unit onto am dose and one unit onto pm dose) If your fasting blood sugars are below 90mg/dl two days in a row, please decrease your long-acting insulin by 2 units. This lower dose becomes your new dose, continue to decrease as needed. Daily Short-Acting Insulin Instructions: Your short-acting insulin is Fiasp 1.) Continue with your current scale: Blood sugar 120- 150 Administer 3 units Blood sugar 151- 200 Administer 6 units Blood sugar 201- 250 Administer 9 units Blood sugar Greater than 250 Administer 12 units Treatment of Low Blood Sugar (Hypoglycemia) 15:15 rule - if your blood sugars is under 80, eat 15g of sugar, and recheck your blood sugar in 15minutes. If you continue to be under 80 after 15 minutes, eat 15g of sugar more, and repeat. If BG is over 100 on recheck, no need to consume more sugar, and recheck BG in another 15 minutes. If your BG is lower than 80, you are likely to feel shaky, sweaty and lightheaded. This is a signalthat your body needs more sugar. Quickly eat or drink a 15g of something sweet, such as: 4 ounces fruit juice or regular (not diet) soda 6 Noviavers small box of raisins 4 glucose tablets (~15 gm of glucose) If your BG is very low <50, you can double the amount above or take 30 gm of glucose gel/tablets. Once you are feeling better, try to determine why your BG was so low. Common causes of hypoglycemiainclude skipping a meal, lots of exercise, too much insulin or any combination of these things. Understanding the cause my help you to avoid another low BG in the future. Test blood sugars prior to driving, make sure glucose levels are greater than 100mg/dl. If not havea snack and retest blood sugars in 15 minutes. Carry a quick acting glucose source on you at all times. Call your diabetes provider OR PCP for blood sugars less than 80 or greater than 300 twice in one day to have your insulin doses adjusted. What should you know about eating carbohydrates? Managing the amount of carbohydrate (carbs) you eat is an important part of healthy meals when you have diabetes. Carbohydrate is found in many foods. Learn which foods have carbs. And learn the amounts of carbs in different foods. Bread, cereal, pasta, and rice have about 15 grams of carbs in a serving. A serving is 1 slice of bread (1 ounce), ?? cup of cooked cereal, or 1/3 cup of cooked pasta or rice. Fruits have 15 grams of carbs in a serving. A serving is 1 small fresh fruit, such as an apple or orange; ?? of a banana; ?? cup of cooked or canned fruit; ?? cup of fruit juice; 1 cup of melon or raspberries; or 2 tablespoons of dried fruit. Milk and nh-nwyad-irgnw yogurt have 15 grams of carbs in a serving. A serving is 1 cup of milk or 3/4 cup (6 oz) of th-exkib-ljdch yogurt. Starchy vegetables have 15 grams of carbs in a serving. A serving is ?? cup of mashed potatoes or sweet potato; 1 cup winter squash; ?? of a small baked potato; ?? cup of cooked beans; or ?? cup cooked corn or green peas. Learn how much carbs to eat each day and at each meal. A dietitian or certified nuclear medicine technologist can teach you how to keep track of the amount of carbs you eat. This is called carbohydrate counting. If you are not sure how to count carbohydrate grams, use the plate method to plan meals. It is a quick way to make sure that you have a balanced meal. It also can help you manage the amount of carbohydrate you eat at meals. Divide your plate by types of foods. Put non-starchy vegetables on half the plate, meat or other protein food on one-quarter of the plate, and a grain or starchy vegetable in the final quarter of theplate. To this you can add a small piece of fruit and 1 cup of milk or yogurt, depending on how many carbs you are supposed to eat at a meal. Try to eat about the same amount of carbs at each meal. Do not save up your daily allowance of carbs to eat at one meal. Proteins have very little or no carbs. Examples of proteins are beef, chicken, turkey, fish, eggs, tofu, cheese, cottage cheese, and peanut butter. Future Appointments and Orders Future Appointments and Orders Future Appointments Provider Department Dept Phone 02/07/2024 12:30 PM NURSE, GENERAL SURGERY General Surgery at [facility] Arrive at: [facility] [phone] 02/18/2024 12:15 PM LAB, THREE L Lab 3L [facility] Arrive at: [place] [facility] [phone] 02/18/2024 1:00 PM Tor Balbuena MD General Surgery at [facility] Arrive at: [facility] [place] [facility] [phone] 02/18/2024 2:[address] General Surgery at [facility] Arrive at: [facility] [phone] 02/20/2024 10:00 AM Yessi Renee APRN; Cl Hess MD Hematology/Oncology at [facility] Arrive at: [facility] door at end of hallway [phone] 03/24/2024 9:00 AM Ping Moore PA Radiation Oncology at [facility] Arrive at: Home [phone] Please do not come in for this visit. Your provider will call you at the number you provided. 05/18/2024 4:30 PM Malachi Rothman MD Radiation Oncology at [facility] Arrive at: Home [phone] Please do not come in for this visit. Your provider will call you at the number you provided. Future Orders Complete By Expires CBC (with Diff) [IRR214 Custom] 03/01/2024 01/30/2025 Process Instructions: INCLUDES: WBC, RBC, Hgb, Hct, Platelets, RBC Indices and Differential Scheduling Instructions: Comments: Questions: Comprehensive metabolic panel Non-fasting [LAB17 Custom] 03/01/2024 (Approximate) 01/30/2025 Process Instructions: INCLUDES: Calcium, T Protein, Albumin, AST, ALT, Alk Phos, T Bili, BUN, Creat, GFR, Glucose, Lytes. Scheduling Instructions: Comments: Questions: Fasting required?: Non-fasting Magnesium [LGQ612 Custom] 03/01/2024 01/30/2025 Process Instructions: Scheduling Instructions: Comments: Questions: Phosphorus [NGZ991 Custom] 03/01/2024 01/30/2025 Process Instructions: Scheduling Instructions: Comments: Questions: Prealbumin [YPA963 Custom] 03/01/2024 01/30/2025 Process Instructions: Scheduling Instructions: Comments: Questions: [facility] [EQ161 Custom] As directed Process Instructions: Scheduling Instructions: Comments: Wero Sadler [address] [facility] [phone] Telephone Information: Diagnosis: deconditioning with Unsteady gait Significant weakness, ataxia or gait abnormality Patient's: Hgt: Ht Readings from Last 1 Encounters: 01/23/24 : 175.3 cm (5' 9) Wgt: Wt Readings from Last 1 Encounters: 01/31/24 : 87.5 kg (193 lb) VENDOR: [facility] Ordering: Front wheel walker [facility]A Questions: Device Needed: WALKER (E0143) Patient Height (cm): 175.3 cm (5' 9) Patient Weight: 87.5 kg (193 lb) Diagnosis: Pancreatic adenocarcinoma Discharge References/Attachments: Discharge References/Attachments None Follow-up Recommendations for Providers: Medication changes:Augmentin for 2 days, continue pancreatic Enzymes/daily PPI CC: Tristen Hunter MD [phone] Signed: Tamia Rodriguez MD [facility] Team Pager #[phone] 02/01/2024 7:30 AM For questions regarding this document or issues relating to this hospitalization on the [facility], please contact Tor Balbuena MD's office at [phone] documented in this encounter Discharge Instructions * Discharge Instructions* Dena Dinh, FIELD PIPE LINES SUPERVISOR - 01/31/2024 1:52 PM EST Diabetes Discharge Instructions Follow up with your diabetes provider as scheduled Blood Sugar Checks with your Dexcom CGM Every day, please check your blood sugar at these 4 times 1) Before eating breakfast (aka your fasting blood sugar) 2) Before eating lunch 3) Before eating dinner 4) Before going to bed If you have symptoms of low blood sugar or high blood sugar, please check your blood sugar an additional time Daily Long-Acting Insulin Instructions YOUR Long-acting insulin is Tresiba: We have reduced your dose. As discussed this might need to be increased (or decreased). Please monitor your fasting blood sugars to determine if this insulin doseneeds to be adjusted. Take 20 units of long acting insulin in the morning Adjust your long-acting insulin dose as needed according to the following guidelines: If your fasting blood sugars are above 150mg/dl two days in a row, please increase your long-actinginsulin by 2 units. This increased dose becomes your new dose, continue to increase as needed every2-3 days (you can add one unit onto am dose and one unit onto pm dose) If your fasting blood sugars are below 90mg/dl two days in a row, please decrease your long-acting insulin by 2 units. This lower dose becomes your new dose, continue to decrease as needed. Daily Short-Acting Insulin Instructions: Your short-acting insulin is Fiasp 1.) Continue with your current scale: Blood sugar 120- 150 Administer 3 units Blood sugar 151- 200 Administer 6 units Blood sugar 201- 250 Administer 9 units Blood sugar Greater than 250 Administer 12 units Treatment of Low Blood Sugar (Hypoglycemia) 15:15 rule - if your blood sugars is under 80, eat 15g of sugar, and recheck your blood sugar in 15minutes. If you continue to be under 80 after 15 minutes, eat 15g of sugar more, and repeat. If BG is over 100 on recheck, no need to consume more sugar, and recheck BG in another 15 minutes. If your BG is lower than 80, you are likely to feel shaky, sweaty and lightheaded. This is a signalthat your body needs more sugar. Quickly eat or drink a 15g of something sweet, such as: 4 ounces fruit juice or regular (not diet) soda 6 lifesavers small box of raisins 4 glucose tablets (~15 gm of glucose) If your BG is very low <50, you can double the amount above or take 30 gm of glucose gel/tablets. Once you are feeling better, try to determine why your BG was so low. Common causes of hypoglycemiainclude skipping a meal, lots of exercise, too much insulin or any combination of these things. Understanding the cause my help you to avoid another low BG in the future. Test blood sugars prior to driving, make sure glucose levels are greater than 100mg/dl. If not havea snack and retest blood sugars in 15 minutes. Carry a quick acting glucose source on you at all times. Call your diabetes provider OR PCP for blood sugars less than 80 or greater than 300 twice in one day to have your insulin doses adjusted. What should you know about eating carbohydrates? Managing the amount of carbohydrate (carbs) you eat is an important part of healthy meals when you have diabetes. Carbohydrate is found in many foods. Learn which foods have carbs. And learn the amounts of carbs in different foods. Bread, cereal, pasta, and rice have about 15 grams of carbs in a serving. A serving is 1 slice of bread (1 ounce), ?? cup of cooked cereal, or 1/3 cup of cooked pasta or rice. Fruits have 15 grams of carbs in a serving. A serving is 1 small fresh fruit, such as an apple or orange; ?? of a banana; ?? cup of cooked or canned fruit; ?? cup of fruit juice; 1 cup of melon or raspberries; or 2 tablespoons of dried fruit. Milk and gv-gdirx-ktfcv yogurt have 15 grams of carbs in a serving. A serving is 1 cup of milk or 3/4 cup (6 oz) of xh-pxvjm-renzg yogurt. Starchy vegetables have 15 grams of carbs in a serving. A serving is ?? cup of mashed potatoes or sweet potato; 1 cup winter squash; ?? of a small baked potato; ?? cup of cooked beans; or ?? cup cooked corn or green peas. Learn how much carbs to eat each day and at each meal. A dietitian or certified nuclear medicine technologist can teach you how to keep track of the amount of carbs you eat. This is called carbohydrate counting. If you are not sure how to count carbohydrate grams, use the plate method to plan meals. It is a quick way to make sure that you have a balanced meal. It also can help you manage the amount of carbohydrate you eat at meals. Divide your plate by types of foods. Put non-starchy vegetables on half the plate, meat or other protein food on one-quarter of the plate, and a grain or starchy vegetable in the final quarter of theplate. To this you can add a small piece of fruit and 1 cup of milk or yogurt, depending on how many carbs you are supposed to eat at a meal. Try to eat about the same amount of carbs at each meal. Do not save up your daily allowance of carbs to eat at one meal. Proteins have very little or no carbs. Examples of proteins are beef, chicken, turkey, fish, eggs, tofu, cheese, cottage cheese, and peanut butter. * Patient Instructions* Tamia Rodriguez MD - 01/17/2024 9:42 AM EST Patient given following instructions (aware to follow provider instructions if they differ) via phone call. Patient verbalized understanding of the information reviewed: U100 & U200 Degludec (Tresiba): Reduce AM dose by 20% on Take 30 units. Type 2 DM reduce dose by 50% on DOS Will take 18 units, as his injector only has even units available. PANCREAS Surgery Discharge Instructions Who to call with questions or concerns: - During day hours call the nurses in the [facility] Surgery Clinic at [phone]. - During the night time hours call the hospital transfer table operator helper [phone] and ask to speak to the general surgery resident security and privacy consultant. Instructions for when you are home: Diet: Ok to eat a carb control diet as tolerated. It is important to try to eat as much calories and protein as possible during recovery to aid in healing. You frequently may feel full easily or evenhave nausea. Take small meals at first and pace yourself. You may supplement your diet with nutritional shakes/drinks (Ensure, [place] Instant Breakfast, Boost) if possible. Remember to take your pancreatic enzymes (CREON) see below. Enzymes: You will need to take take pancreatic enzyme capsules immediately before meals to maximizeyour nutrient digestion and absorption. This will help you absorb your nutrients as you regain yourappetite. We recommend that you take the pancreatic enzyme capsules at first bite of your meal. Youhave been prescribed Creon: take 1 capsule with meals. You will continue this indefinitely. Monitorstool consistency for adequacy of enzyme dosing. Antacid medications: You should be on an antacid pill such as Proton Pump Inhibitors or H2 blockers such as: Nexium, Prilosec, Protonix or Pepcid. These medications prevent ulcers that can form at the connection between the stomach and intestine after the whipple operation. In addition an antacidwill help your own pancreatic enzymes work better to absorb nutrients. Pain: - A good strategy is to take Tylenol 650 mg every 6 hours for pain relief. Please limit NSAID use (ibuprofen, Motrin, Aleve, etc) as these increase your risk of developing ulcers at the new connections between your stomach and small bowel. Other medications: - The remainder of your medications are listed in the first section of the After Visit Summary. Incision: The skin incision(s) is closed with Jay Usually the jay are removed anywhere from7-14 days after the surgery. You will be discharged with the jay in place to be removed soon after discharge. Be on the watch for changes at the incisions. Look out for redness or drainage. Thesewould be symptoms to alert the nurses in the [facility] Surgery Clinic. You have been scheduled for a staple removal in about a week from now (see appointments below). Activity: Be active as tolerated. You will be tired. This is normal. It is ideal if you are up and about as much as possible during the day. You are encouraged to go for walks outside for exercise, weather permitting. The more walking you can do the quicker your recovery. Walking also prevents blood clots. - Use common sense with regard to heavy lifting for approximately 4-6 weeks after surgery or until you are seen by Dr. Balbuena for your postop check in the clinic. Shower: Yes, showering is encouraged and ok. Refrain from baths until approximately 4 weeks after surgery. It is OK to get the incision wet. Follow up appointments: You should have your follow up appointment date and time in 4L scheduled before your discharge. Ask you nurse if this has been scheduled with Dr. Balbuena's office [phone]. In most cases Dr. Balbuena will order blood work to be done on the day of your post op clinic appointment. This decision is made on a eqkd-hw-fcmn basis so ask if this is necessary and plan to come to [facility] pr ior to the appointment to get the blood work done in 3L as instructed. - Of course, if you are being discharged on a weekend and Dr. Balbuena's office is closed then call the office [phone] first thing Saturday. Future Appointments Date Time Provider Department Center 02/07/2024 12:30 PM NURSE, GENERAL SURGERY [facility] SURG [facility] 02/18/2024 12:15 PM LAB, THREE L Lab 3L [facility] 02/18/2024 1:00 PM Tor Balbuena MD [facility] 02/18/2024 2:[address] [facility] 02/20/2024 10:00 AM Cl Hess MD [facility] 03/24/2024 9:00 AM Ping Moore PA [facility] 05/18/2024 4:30 PM Malachi Rothman MD [facility] RAD OFF [facility] A telephone follow-up visit has been requested with our outpatient christmas tree grower Radha Sweet RD whowill call you to discuss your diet/nutrition next week. If any appointments with Radha are listed in the appointment list above BEFORE the date of your postop visit with Dr. Tor Balbuena, please note that this is a telephone visit, NOT an in-person visit. You may have an in-person visit withRadha the same day you return for follow-up with Dr. Tor Balbuena. Other Homework: Know what medications you are taking and take charge of knowing this information. Ask your nurse for the Pocket Medication List to fill in the relevant medications including the medications you were on before surgery in addition to the ones you are being discharged with. You and your nurse can make sure this list matches the list in our computer system so there are no fumbles. If you have concerns or questions: - During the day it is best to call the [facility] General Surgery [facility] to speak with the surgery nurses.The number is [phone]. - During the night call the [facility] transfer table operator helper and ask to speak to the surgery resident security and privacy consultant for general surgery. documented in this encounter Medications at Time of Discharge Medication Sig Dispensed Refills Start Date End Date gahydk-coewqxkp-udp lase DR (Creon 24) 24,000-76,000 -120,[address] capsule Take 3 per meal three times daily and 2 per snack three times daily (15 capsules/day) 450 capsule 11 10/25/2023 tamsulosin (Flomax) 0.4 mg capsuleIndications: Malignant neoplasm of prostate Take 1 capsule by mouth nightly. 30 capsule 11 08/20/2023 Insulin Fiasp FlexTouch U-100 100 unit/mL (3 mL) Insulin Pen Inject 3 mLs subcutaneously 4 times daily. 3-18 units. 07/01/2023 Insulin Tresiba FlexTouch U-100 100 unit/mL (3 mL) Insulin Pen 26 units once daily. 06/22/2023 chlorthalidone (Hygroton) 25 mg tablet Take 25 mg by mouth daily. omeprazole (PriLOSEC) [address] capsule Take 20 mg by mouth daily. 05/20/2023 omega 1-ads-prl-fish oil 250-350-1,000 mg Capsule Take 1,000 mg [...] <130) 11/18/2021 timoloL (Timoptic) 0.5 % Drops daily. 08/29/2021 erythromycin (Romycin) 5 mg/gram (0.5 %) [...] (E.C.) Take 81 mg by mouth daily. amoxicillin-clavula yelena (Augmentin) 875-125 mg tablet Take 1 tablet by mouth 2 times daily for 2 days. 3 tablet 02/01/2024 02/03/2024 documented as of this encounter Progress Notes * Abby Melgoza MSW - 02/01/2024 8:34 AM EST Per treatment team, confirmed ride with RCT for pickle cutter at the main entrance at noon today. Abby Melgoza PhD, [facility] Pager [phone] * Dena Dinh APRN - 01/31/2024 8:15 AM EST Follow Up Diabetes Consult Patient Interview Blood glucose values and insulin use reviewed. A1C 7%. Plan is for discharge to home tomorrow. Dietadvanced yesterday though TPN continued through this morning. Glargine 20 units administered this morning. At home Wero uses long acting insulin 44 units daily. He reports his appetite is not nearly as hearty as it was prior to arrival so we discussed going home on a lower dose of long acting insulin. We reviewed how this is titrated up every 3 days if his fasting blood sugars are elevated. Hisshort acting insulin dosing is appropriate and he is familiar with his schedule so I think it is appropriate to continue Fiasp as dosed currently at home. Objective Temp: [36.5 ??C (97.7 ??F)-37.4 ??C (99.3 ??F)] Heart Rate: [71-78] Resp: [16-18] BP: (126-167)/(53-77) SpO2: [97 %-99 %] Heart Rate from SpO2: [66 bpm-78 bpm] Current Regimen from previous note (01/29/24) 1.Lantus:INCREASE TO 20 units at AM (takes Tresiba 33 units at home daily) 2. Humalog correction Moderate ISS 3. For tonight TPN containing 230 GM CHO component recommend 1unit for 3 gm of carb meal associatedinsulin which will be 76 units in the bag STRONGER I:C 4. Diet: Carb counting advance as tolerated per primary once he is no longer on bowel rest If he starts eating by mouth we will recommend choose lispo for an insulin to carb ratio of 1:10 5. Monitoring: Q4H Recent Glucose Levels Recent Labs 01/31/24 0718 01/31/24 0343 01/31/24 0038 01/30/24 1932 01/30/24 1649 01/30/24 1346 01/30/24 1120 01/30/24 0737 01/30/24 0349 01/29/24 2322 01/29/24 1941 01/29/24 1555 POCGLU 156 152 135 150 181 224* 256* 211* 203* 159 184 194 ASSESSMENT Patient is a 73 y.o. years old male with PMH significant for pancreatic head adenocarcinoma, high risk prostate cancer, colon cancer, CAD s/p CABG, CVA with residual blindness, OLGA, HLD, who was admitted on 01/23/2024 currently being treated for pancreatic adenocarcinoma s/p Whipple. , Last A1C was7.0. Diabetes adequately controlled and complicated by s/p Whipple procedure and NEEDING parenteral/ enteral feeds. Plan is for discharge to home tomorrow. Team looking for discharge recs. TPN discontinued this morning. At home Wero has been taking Tresiba 44 units daily and Fiasp on a sliding scale. If BGS 120-150 - head takes 3 units fiasp, then every 50 increased he adds 3 additional units. Farxiga was stopped for him. He does have a Dexcom, needs help placing and pairing this with his phone. His brother was helping him though now will have VN for a while. PLAN for here: Lantus:20 units Lispro 1:10 insulin to carbohydrate ratio - ADDED Lispro for correction q 4 hours based on a correction factor of 20 Diet CC Monitoring: Q4 Diabetes Discharge Instructions Blood Sugar Checks (aka, finger-sticks) with your Dxxcom CGM Every day, please check your blood sugar at these 4 times and record your result each time (we recommend keeping a daily logbook so you can look back on all of your results in one place): 1) Before eating breakfast (aka your fasting blood sugar) 2) Before eating lunch 3) Before eating dinner 4) Before going to bed If you have symptoms of low blood sugar or high blood sugar, please check your blood sugar an additional time Daily Long-Acting Insulin Instructions YOUR Long-acting insulin is Tresiba: Take 20 units of long acting insulin in the morning Adjust your long-acting insulin dose as needed according to the following guidelines: If your fasting blood sugars are above 150mg/dl two days in a row, please increase your long-actinginsulin by 2 units. This increased dose becomes your new dose, continue to increase as needed every2-3 days (you can add one unit onto am dose and one unit onto pm dose) If your fasting blood sugars are below 90mg/dl two days in a row, please decrease your long-acting insulin by 2 units. This lower dose becomes your new dose, continue to decrease as needed. Daily Short-Acting Insulin Instructions: Your short-acting insulin is Fiasp 1.) Continue with your current scale: Blood sugar 120- 150 Administer 3 units Blood sugar 151- 200 Administer 6 units Blood sugar 201- 250 Administer 9 units Blood sugar Greater than 250 Administer 12 units Treatment of Low Blood Sugar (Hypoglycemia) 15:15 rule - if your blood sugars is under 80, eat 15g of sugar, and recheck your blood sugar in 15minutes. If you continue to be under 80 after 15 minutes, eat 15g of sugar more, and repeat. If BG is over 100 on recheck, no need to consume more sugar, and recheck BG in another 15 minutes. If your BG is lower than 80, you are likely to feel shaky, sweaty and lightheaded. This is a signalthat your body needs more sugar. Quickly eat or drink a 15g of something sweet, such as: 4 ounces fruit juice or regular (not diet) soda 6 lifesavers small box of raisins 4 glucose tablets (~15 gm of glucose) If your BG is very low <50, you can double the amount above or take 30 gm of glucose gel/tablets. Once you are feeling better, try to determine why your BG was so low. Common causes of hypoglycemiainclude skipping a meal, lots of exercise, too much insulin or any combination of these things. Understanding the cause my help you to avoid another low BG in the future. Test blood sugars prior to driving, make sure glucose levels are greater than 100mg/dl. If not havea snack and retest blood sugars in 15 minutes. Carry a quick acting glucose source on you at all times. Call your diabetes provider OR PCP for blood sugars less than 80 or greater than 300 twice in one day to have your insulin doses adjusted. What should you know about eating carbohydrates? Managing the amount of carbohydrate (carbs) you eat is an important part of healthy meals when you have diabetes. Carbohydrate is found in many foods. Learn which foods have carbs. And learn the amounts of carbs in different foods. Bread, cereal, pasta, and rice have about 15 grams of carbs in a serving. A serving is 1 slice of bread (1 ounce), ?? cup of cooked cereal, or 1/3 cup of cooked pasta or rice. Fruits have 15 grams of carbs in a serving. A serving is 1 small fresh fruit, such as an apple or orange; ?? of a banana; ?? cup of cooked or canned fruit; ?? cup of fruit juice; 1 cup of melon or raspberries; or 2 tablespoons of dried fruit. Milk and ll-btrdb-lbnxu yogurt have 15 grams of carbs in a serving. A serving is 1 cup of milk or 3/4 cup (6 oz) of gt-ojati-luosq yogurt. Starchy vegetables have 15 grams of carbs in a serving. A serving is ?? cup of mashed potatoes or sweet potato; 1 cup winter squash; ?? of a small baked potato; ?? cup of cooked beans; or ?? cup cooked corn or green peas. Learn how much carbs to eat each day and at each meal. A dietitian or certified nuclear medicine technologist can teach you how to keep track of the amount of carbs you eat. This is called carbohydrate counting. If you are not sure how to count carbohydrate grams, use the plate method to plan meals. It is a quick way to make sure that you have a balanced meal. It also can help you manage the amount of carbohydrate you eat at meals. Divide your plate by types of foods. Put non-starchy vegetables on half the plate, meat or other protein food on one-quarter of the plate, and a grain or starchy vegetable in the final quarter of theplate. To this you can add a small piece of fruit and 1 cup of milk or yogurt, depending on how many carbs you are supposed to eat at a meal. Try to eat about the same amount of carbs at each meal. Do not save up your daily allowance of carbs to eat at one meal. Proteins have very little or no carbs. Examples of proteins are beef, chicken, turkey, fish, eggs, tofu, cheese, cottage cheese, and peanut butter. Dena Dinh APRN [facility] [place] [facility] Diabetes Management Pager [phone] Weekends please page [phone] 50 minutes were spent over the course of the day with this patient encounter including time spent in chart review and relevant lab result review, assessment of and counseling with the patient on diabetes and treatment plan, reviewing all glucose and insulin data, and coordination with the consulting service. * Wilton Moore MD - 01/31/2024 8:07 AM EST [facility] Biliary Surgery Inpatient Progress Note Patient Name: Wero Sadler ; Age: 11 1950; 74 y.o. Room/Bed: [address] [place], [place] [address] Today's Date: 01/31/24 ID: Wero Sadler is a 74 y.o. 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 24 Hour Events: - tolerating carb control diet - 1 BM yest morning - AVSS - Hgb 7.6 Subjective: Overall feeling well, offers no complaints this morning. 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 2000 mL EBL, 3u PRBC given intra-op. 17 Fr Kd drain posterior to HJ, anterior to PJ. Epidural, krause, NGT, a-line in place. Requiring low-dose pressors, epidural wean, and fluid resuscitation overnight for hypovolemic/vasoplegic shock. 01/23 POD1: HEATHER amylase 12. Started on ASA suppository due to primary PV venorrhaphy. Maintain NGT to LCWS. Intra-op bile fluid cultures with no growth, periop zosyn timed out. Weaned off pressor support, A line discontinued. 01/24 POD2: HEATHER amylase 7. Decrease IVF, downgrade to floor. 01/25 POD3: HEATHER amylase 4. Passing flatus. Failed NGT clamp trial due to distention, nausea, and high bilious output. 15u glargine added due to hyperglycemia >150. 01/26 POD4: Overnight increased drain output slightly more sanguinous in character, Hgb stable at 8.5, CTA abdomen/pelvis with no e/o pseudoaneurysm or active bleeding. Given increased output and chylous fluid intra-op, sent for HEATHER triglycerides which were low (48), no chyle leak. HEATHER amylase <3 - no e/o biochemical leak, drain removed. Maintain NGT to LCWS. TPN via Mediport with 12u insulin per DM recs. Suppository given with subsequent BM. St 4 infiltrate of K Cl & NS - treating with hyaluronidase. Intra-op bile fluid cultures growing bacteroides fragilis - started on empiric Zosyn. 01/27 POD5: Hypertensive with SBP into low 200s with associated CP so EKG obtained showing PACs andRBBB, troponin-T x2 WNL. Started on scheduled IV lopressor. IV Lasix 20mg x 1. TPN concentrated. Ongoing high bilious NGT output - maintain NGT to LCWS, started on scheduled IV Reglan for delayed gastric emptying. Increased bloody drainage from his HEATHER drain site requiring an ostomy bag over the site. 01/28 POD6: Trace s/s drainage from his HEATHER drain site, cont TPN via Mediport, NGT clamp trial, 01/29 POD7:Passed clamp trial, NGT d/c'd, tolerating CLD, continues to pass flatus, epidural removed, krause removed and voiding, diet advanced to 1/2 portion CC. 01/30 POD8: Diet advanced to full portion CC, dc TPN, Hgb 7.6 transfusion 1uPRBC, cont zosyn. Objective Physical Exam Vitals: Temp: [36.5 ??C (97.7 ??F)-37.4 ??C (99.3 ??F)] Heart Rate: [71-78] Resp: [16-18] BP: (126-167)/(53-77) Gen: NAD, resting comfortably, pleasant, conversant HEENT: sclerae nonicteric. CV : RRR Pulm: breathing comfortably on RA, no respiratory distress Abd: non-distended, soft, essentially nontender throughout. incision well- approximated with jay, no erythema/drainage. Mepilex overlying prior R HEATHER site c/d/i Ext: SCDs in place. Skin: warm, dry Labs: Recent Labs 01/31/24 0503 WBC 5.92 HGB 7.6* HCT 23.3* PLATELET 263 No results for input(s): INR in the last 72 hours. Recent Labs 01/31/24 0503 NA 136 K 4.0 CL 99 CO2 27 BUN 20 CREATININE 0.73* Intra-op bile fluid 01/22: Rare Bacteroides fragilis group Abnormal Assessment: Wero Sadler is a 74 y.o. 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 Doing well this AM. Pasisng flatus and tolerated CC diet 1/2 portion. D/c TPN, full CC diet. Hgb 7.6 will transfuse 1 PRBC given cardiac Hx. Ostomy bag overlying R HEATHER incision site with trace s/s o/premoved and replaced with mepilex dressing. Plan to d/c home tmr. VNA arranged. DM consulted for for d/c recs. Pt on zosyn for intraoperative bile cultures with B fragilis. ID curbsided and recommended to d/c home on augmentin for total 7 days coverage including the zosyn started 01/26. OOBTC/PT/ambulate/IS. 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 diabetic preop Appreciate Diabetes Management recs On Lantus 15u daily For TPN:1unit for 5gm of carb meal associated insulin which will be 35 units in the bag STRONGER I:C Moderate SSI POC glucose 149-219, 18u lispro yesterday #Post-whipple bile contamination/infection prevention Intraoperative bile cultures with B fragilis - cont empiric zosyn started 01/26/ can d/c home on augmentin for total 7 days coverage #Post-operative pulmonary function Incentive spirometry, ambulation #Marginal ulcer and DVT prophylaxis PPI PO BID, avoid NSAIDs Lovenox QHS, SCDs #Periop anemia today's Hgb 7.6 transfuse PRBC Given cardiac history goal Hgb >8 #Home Medications Carvedilol 25mg daily Flomax 0.4mg daily HOLD Creon until diet advanced Insulin per DM recs chlorthalidone, amlodipine, lisinopril aspirin 81mg Omeprazole -> IV PPI Dispo: Floor Code status: Attempt Cardiopulmonary Resuscitation - Inpatient Signed: Wilton Moore MD [facility]iliary Surgery Service Team Pager #[phone] 01/31/24 8:07 AM * Earl Reina - 01/30/2024 2:21 PM EST Survey Analyst Encounter Note Patient Name: Wero Sadler : [id number] MR#: [id number] Admit Date: 01/23/2024 6:12 AM Hospital Day 7 days Narrative:Visited to introduce and assess acceptance of Survey Analyst services. Assessment: Patient was awake, alert, oriented and in bed. Patient coping positively with stresses of illness/hospitalization at this time. Patient says that he is hoping to get better and seems to be thankful and taking one day at time. Intervention and Outcome:Provided emotional, spiritual support and listening presence. Survey Analyst services accepted. Conversation to build trusting relationship. Provided pastoral presence. Provided spiritual guidance. Follow-up: yes Time in Direct Care:08 Mins Earl Reina 01/30/2024 * Nimisha Mahoney, PT - 01/30/2024 9:54 AM EST Physical Therapy Note Treatment Number PT: (P) 4 Patient profile: Per MD note: Wero Sadler is a 74 y.o. male with PMH of colon cancer ([id number]), prostate cancer (s/p androgen deprivation and RT), ASCVD (s/p 3 vessel CABG), PVD s/p carotid endarterectomy, prior CVA, HLD, HTN, OLGA, IDDM and pancreas cancer s/p neoadjuvant chemotherapy with 8 cycles of mFOLFIRINOX and SBRT who is now 6 Days Post-Op s/p exploratory laparotomy, Whipple procedure c/b portal vein tear necessitating inflow and outflow occlusion (full dose heparin given) toallow for primary venorrhaphy, internalized pancreatic duct stent, Billroth II reconstruction. Interval History: per general surgery team report: Passed clamp trial, tolerating CLD, continues topass flatus; Epidural removed; Krause removed and voiding Social History: (per initial PT evaluation) lives alone in [place], [place]; has friends that grocery shop for him and prepare meals; also receives [id number]; uses [employer] for transportation as needed; patient reports having a neighbor with whom he has a glass of wine every evening Home set-up: 2-level home with his bedroom upstairs Bathroom Set-up: 2 bathrooms upstairs and 1 downstairs Stairs: 1 step to enter home; 5, then a landing, then 8 more steps with bilateral railings to 2nd floor Baseline Mobility: independent without device in home; uses a cane for the visually impaired for community ambulation Equipment at home: cane for the visually impaired; grab bars in shower; high toilet Fall history: no Precautions/Special Considerations: Code Status: Full Code, High risk for skin breakdown, At risk to fall, Abdominal incision, Abdominal precautions (minimize bending, lifting > 5 lbs, twisting), 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 To utilize FWW and 1 person assist for ambulation and transfers with nursing. Please encourage up to chair daily. Pt encouraged to ambulate frequently with staff, getting into the bathroom for toileting and walking out in the adan >/= 3 times daily as able. Subjective: Oh, a walk would be nice! Objective: Patient seen for follow-up physical therapy treatment session and demonstrated the following: Pain: no c/o pain during session Vital Signs: VSS on RA Mental Status: alert, notably pleasant, agreeable to participate Bed Mobility: Supine to Sit: not tested 2/2 pt seated in bedside chair on arrival Sit to Supine: independent with brief pt use of bed rail and with HOB raised ~20* Transfers: Sit to Stand: modified independent using rolling walker Stand to Sit: modified independent using rolling walker Pt demonstrates good eccentric control and safety awareness lowering to sit Gait: Distance: 150 feet Device used: rolling walker Level of assist: modified independent Gait mechanics: reduced chao and swing-through gait Stairs: ascended / descended 7 stairs using one rail with modified independence Balance: Sitting: good Standing: good using FWW Pt left long sitting in bed, with all needs met, and with call mcdonnell in reach following visit. Assessment: Wero Sadler was seen today for physical therapy treatment session for continuation of POC. He reports adequate pain control with all dynamic mobility as outlined above and demonstrates good dynamic safety with transfers and gait. He was able to complete dynamic mobility as required for return to his home setting. He denies any concerns for discharge regarding mobility status / PT goals at this time. Pt has met all inpatient PT goals to support D/C to home setting, PT services will plan to monitor for remainder of this admission. Discharge Recommendations: When medically ready for hospital D/C, discharge recommendations: home with PRN assist Consult Recommendations: No other consults recommended at this time. Equipment needs: Rolling walker Physical Therapy Goals: To be achieved by 02/01/24: Pt. to demonstrate knowledge of safety limitations and precautions and will appropriately request assistance for functional activities and to mobilize. Met Pt. to demonstrate understanding of appropriate exercises. Pt. to perform bed mobility independently from flat bed with log roll technique. Met w modification Pt. to perform transfers with modified independence with LRAD. Met Pt. to ambulate 300 ft with modified independence with LRAD Met @ 150' Mal (vs SBA x400' on 01/28) Pt. to ambulate up/down 13 step/stairs using two rails with modified independence. Met x7 (limited by IV) Pt will tolerate progression of mobility with stable vital signs. Met Plan: Therapy Frequency (PT): (P) Monitor for therapy interventions as outlined in initial evaluation. Patient agrees with plan as stated. Time IN / OUT: 9:54 - 10:13 Total Minutes, Physical Therapy: (P) 19 Billing Code: (P) TE-Fx1 Nimisha Mahoney PT/ROME WHITMAN Pager: [phone] Physical Therapy Inpatient Rehabilitation Department * Wilton Moore MD - 01/30/2024 7:35 AM EST [facility] Biliary Surgery Inpatient Progress Note Patient Name: Wero Sadler ; Age: 11 1950; 74 y.o. Room/Bed: [address] [place], [place] [address] Today's Date: 01/30/24 ID: Wero Sadler is a 74 y.o. male with PMH of colon cancer (resected 2008), prostate cancer (s/p androgen deprivation and RT), ASCVD (s/p 3 vessel CABG), PVD s/p carotid endarterectomy, prior CVA, HLD, HTN, OLGA, IDDM and pancreas cancer s/p neoadjuvant chemotherapy with 8 cycles of mFOLFIRINOX and SBRT who is now 7 Days Post-Op s/p exploratory laparotomy, Whipple procedure c/b portal vein tear necessitating inflow and outflow occlusion (full dose heparin given) to allow for primary venorrhaphy, internalized pancreatic duct stent, Billroth II reconstruction. 24 Hour Events: - Passed clamp trial, tolerating CLD, continues to pass flatus - Epidural removed. - Krause removed and voiding Subjective: Overall feeling well, offers no complaints this morning. 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 2000 mL EBL, 3u PRBC given intra-op. 17 Fr Kd drain posterior to HJ, anterior to PJ. Epidural, krause, NGT, a-line in place. Requiring low- dose pressors, epidural wean, and fluid resuscitation overnight for hypovolemic/vasoplegic shock. 01/23 POD1: HEATHER amylase 12. Started on ASA suppository due to primary PV venorrhaphy. Maintain NGT to LCWS. Intra-op bile fluid cultures with no growth, periop zosyn timed out. Weaned off pressor support, A line discontinued. 01/24 POD2: HEATHER amylase 7. Decrease IVF, downgrade to floor. 01/25 POD3: HEATHER amylase 4. Passing flatus. Failed NGT clamp trial due to distention, nausea, and high bilious output. 15u glargine added due to hyperglycemia >150. 01/26 POD4: Overnight increased drain output slightly more sanguinous in character, Hgb stable at 8.5, CTA abdomen/pelvis with no e/o pseudoaneurysm or active bleeding. Given increased output and chylous fluid intra-op, sent for HEATHER triglycerides which were low (48), no chyle leak. HEATHER amylase <3 - no e/o biochemical leak, drain removed. Maintain NGT to LCWS. TPN via Mediport with 12u insulin per DM recs. Suppository given with subsequent BM. St 4 infiltrate of K Cl & NS - treating with hyaluronidase. Intra-op bile fluid cultures growing bacteroides fragilis - started on empiric Zosyn. 01/27 POD5: Hypertensive with SBP into low 200s with associated CP so EKG obtained showing PACs andRBBB, troponin-T x2 WNL. Started on scheduled IV lopressor. IV Lasix 20mg x 1. TPN concentrated. Ongoing high bilious NGT output - maintain NGT to LCWS, started on scheduled IV Reglan for delayed gastric emptying. Increased bloody drainage from his HEATHER drain site requiring an ostomy bag over the site. 01/28 POD6: Trace s/s drainage from his HEATHER drain site, cont TPN via Mediport, NGT clamp trial, 01/29 POD7: Diet advanced to 1/2 portion CC. Objective Physical Exam Vitals: Temp: [36.6 ??C (97.9 ??F)-36.9 ??C (98.4 ??F)] Resp: [17-18] BP: (104-190)/(57-91) Gen: NAD, resting comfortably, pleasant, conversant HEENT: sclerae nonicteric. CV : RRR Pulm: breathing comfortably on RA, no respiratory distress Abd: non-distended, soft, essentially nontender throughout. incision well- approximated with jay, no erythema/drainage. Prior R HEATHER site with ostomy bag, trace s/s o/p Ext: SCDs in place. Skin: warm, dry Labs: Recent Labs 01/30/24 0339 WBC 7.34 HGB 8.1* HCT 24.3* PLATELET 221 No results for input(s): INR in the last 72 hours. Recent Labs 01/30/24 0339 NA 136 K 3.8 CL 98 CO2 26 BUN 15 CREATININE 0.55* Intra-op bile fluid 01/22: Rare Bacteroides fragilis group Abnormal Assessment: Wero Sadler is a 74 y.o. male with PMH of colon cancer (resected 2008), prostate cancer (s/p androgen deprivation and RT), ASCVD (s/p 3 vessel CABG), PVD s/p carotid endarterectomy, prior CVA, HLD, HTN, OLGA, IDDM and pancreas cancer s/p neoadjuvant chemotherapy with 8 cycles of mFOLFIRINOX and SBRT who is now 7 Days Post-Op s/p exploratory laparotomy, Whipple procedure c/b portal vein tear necessitating inflow and outflow occlusion (full dose heparin given) to allow for primary venorrhaphy, internalized pancreatic duct stent, Billroth II reconstruction. Doing well this AM. Pasisng flatus and tolerated CLD. Advance to CC diet 1/2 portion. Continue TPN OOBTC/PT/ambulate/IS. 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 diabetic preop Appreciate Diabetes Management recs On Lantus 15u daily For TPN:1unit for 5gm of carb meal associated insulin which will be 35 units in the bag STRONGER I:C Moderate SSI POC glucose 149-219, 18u lispro yesterday #Post-whipple bile contamination/infection prevention Intraoperative bile cultures with B fragilis - started empiric zosyn 01/26 should complete total 7 days #Post-operative pulmonary function Incentive spirometry, ambulation #Marginal ulcer and DVT prophylaxis PPI PO BID, avoid NSAIDs Lovenox QHS, SCDs #Home Medications Carvedilol 25mg daily Flomax 0.4mg daily HOLD Creon until diet advanced Insulin per DM recs chlorthalidone, amlodipine, lisinopril aspirin 81mg Omeprazole -> IV PPI Dispo: Floor Code status: Attempt Cardiopulmonary Resuscitation - Inpatient Signed: Uday Gomes MD [facility] Service Team Pager #[phone] 01/30/24 7:35 AM * Samra Moss, PT - 01/29/2024 12:10 PM EST Physical Therapy Note Treatment Number PT: 3 Patient profile: Per MD note: Wero Sadler is a 74 y.o. male with PMH of colon cancer ([id number]), prostate cancer (s/p androgen deprivation and RT), ASCVD (s/p 3 vessel CABG), PVD s/p carotid endarterectomy, prior CVA, HLD, HTN, OLGA, IDDM and pancreas cancer s/p neoadjuvant chemotherapy with 8 cycles of mFOLFIRINOX and SBRT who is now 6 Days Post-Op s/p exploratory laparotomy, Whipple procedure c/b portal vein tear necessitating inflow and outflow occlusion (full dose heparin given) toallow for primary venorrhaphy, internalized pancreatic duct stent, Billroth II reconstruction. Interval History: Per MD note: 24 Hour Events: - started Reglan - Lasix IV 20 X1 - sched metop 5q6, dc labetalol, add back prn hydral - dc prevena - increased sang o/p through HEATHER incision yesterday afternoon site which decreased overnight - Maintain NGT to LCWS. - TPN via Mediport - Suppository given with subsequent BM -SBO 160-180 overnight o/w AVSS Social History: (per initial PT evaluation) lives alone in [place], [place]; has friends that grocery shop for him and prepare meals; also receives [id number]; uses [facility] for transportation as needed; patient reports having a neighbor with whom he has a glass of wine every evening Home set-up: 2-level home with his bedroom upstairs Bathroom Set-up: 2 bathrooms upstairs and 1 downstairs Stairs: 1 step to enter home; 5, then a landing, then 8 more steps with bilateral railings to 2nd floor Baseline Mobility: independent without device in home; uses a cane for the visually impaired for community ambulation Equipment at home: cane for the visually impaired; grab bars in shower; high toilet Fall history: no Precautions/Special Considerations: fall risk; abdominal incision; abdominal precautions (minimize bending, lifting > 5 lbs, twisting), legally blind (prosthetic L eye and impaired vision in R eyefrom CVA) per pt report Activity Orders (From admission to next 72h) Start Ordered 01/24/24 0800 Up in chair 2 TIMES DAILY Comments: OOB to chair in A.M. Post procedure 01/23/24202901/24/24 0800 Ambulate patient TID in adan 3 TIMES DAILY Question Answer Comment patient to ambulate in adan with assistance 01/23/242029 Mobility and Positioning Recommendations: Pt. To utilize FWW and 1 person assist for ambulation and transfers with nursing. Please encourage up to chair daily. Pt encouraged to ambulate frequently with staff, getting into the bathroom for toileting and walking out in the adan >/= 3 times daily as able. Subjective: I would love to go for another walk Objective: Patient agreeable to physical therapy treatment session today. Pt met resting in bed at beginning of tx session today. 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, pt reports able to see outlines of people and objects, able to navigate with FWW with min cuing Bed Mobility: Supine to Sit: supervision, log roll technique, flat bed, cues for technique throughout Sit to Supine: supervision, log roll technique, flat bed, cues for technique throughout Transfers: Sit to Stand: supervision using FWW Stand to Sit: supervision, using FWW Bed to Chair: NA Gait: Distance: 400 ft Device used: FWW Level of assist: SBA Gait mechanics: reciprocal gait mechanics, steady, no loss of balance noted throughout, min cues for navigating environment Stairs: DNT Balance: Sitting Static: good, independent Sitting Dynamic: good, independent Standing Static: good, supervision with FWW Standing Dynamic / Gait: good, supervision with FWW Education: Provided patient education regarding role of therapy, safety with functional mobility, and discharge planning. Provided patient education on abdominal precautions and log roll technique for entering/exiting bed. Pt verbalized and demonstrated understanding. Pt left supine in bed, with all needs met, and with call mcdonnell in reach following visit. RN updated regarding pt's response/progress with physical therapy session today. Assessment: Wero Sadler was seen today for physical therapy treatment session for continuation of POC. Provided patient education on abdominal precautions and log roll technique for entering/exiting bed. Pt verbalized and demonstrated understanding. Pt demonstrated supine<>sit transfer from flat bed with log roll technique with supervision. Pt demonstrated ability to perform transfers and ambulation ~400 ft around unit with FWW with SBA-supervision level of assistance. Pt demonstratedsteady, reciprocal gait mechanics with no loss of balance noted throughout. Pt demonstrated stable vital signs with no adverse symptoms reported. Anticipate that patient may be able to discharge homewith supervision and family/friend assistance once medically ready for hospital discharge pending progress with physical therapy sessions. Pt will continue to benefit from skilled physical therapy while in the hospital setting in order to practice stair negotiation, maximize independence/safety with functional mobility and achieve therapeutic goals. Discharge Recommendations: Based on current findings- home with supervision pending progress with physical therapy sessions Discharge recommendation is based on the patient's current physical impairments, prior functional status, potential to return to prior level of function, patient motivation, reported home support, potential for functional gains, current level of endurance, reported home environment and anticipated trajectory of progress and may change based on patient progress during this hospitalization. Inpatient Physical Therapy Plan: Therapy Frequency (PT): 1-3 more times for therapy interventions as outlined in initial evaluation. Patient agrees with plan as stated. Consult Recommendations: No other consults recommended at this time. Equipment needs: Anticipated Equipment Needs at Discharge (PT): walker, front wheeled Physical Therapy Goals: To be achieved by 02/01/24: Pt. to demonstrate knowledge of safety limitations and precautions and will appropriately request assistance for functional activities and to mobilize. Pt. to demonstrate understanding of appropriate exercises. Pt. to perform bed mobility independently from flat bed with log roll technique. Pt. to perform transfers with modified independence with LRAD. Pt. to ambulate 300 ft with modified independence with LRAD Pt. to ambulate up/down 13 step/stairs using two rails with modified independence. Pt will tolerate progression of mobility with stable vital signs. Time IN / OUT: 12:10-12:33 Total Time: 23 minutes Samra Moss PT, Doctor of Physical Therapy Pager: [phone] Physical Therapy Inpatient Rehabilitation Department * Heavenly Martinez APRN - 01/29/2024 9:07 AM EST Images from the original note were not included. . ++PLEASE RECALL he is visually impaired if you see him Follow Up Diabetes Consult Patient Interview Mr. Mabert to have TPN INCREASE TO 230 GRAM CHO today in the form of dextrose. Based upon the additional coverage he needed, and he still had elevated blood sugar, recommend strengthening the 1:C Has moved to a surgical floor. Resting well. Additionaly, we will increase his basal insulin. Takes 33 units basal daily at home. Objective Temp: [36.7 ??C (98.1 ??F)-37 ??C (98.6 ??F)] Heart Rate: [60-75] Resp: [13-18] BP: (143-190)/(58-91) SpO2: [93 %-97 %] Heart Rate from SpO2: [59 bpm-78 bpm] Current Regimen 1.Lantus:15 units at AM 2. Humalog correction Moderate ISS 3. For tonight TPN recommend 1unit for 5 gm of carb meal associated insulin which will be 35 units in the bag for 170 GM CHO component 4. Diet: Carb counting advance as tolerated per primary once he is no longer on bowel rest If he starts eating by mouth we will recommend an insulin to carb ratio of 1:15 5. Monitoring: Q4H Recent Glucose Levels Recent Labs 01/29/24 0759 01/29/24 0410 01/28/24 2321 01/28/24 1930 01/28/24 1543 01/28/24 1208 01/28/24 0752 01/28/24 0353 01/27/24 2352 01/27/24 1934 01/27/24 1542 01/27/24 1209 POCGLU 206* 200* 191 194 191 206* 209* 185 197 197 219* 202* ASSESSMENT Patient is a 73 y.o. years old male with PMH significant for spancreatic head adenocarcinoma, high risk prostate cancer, colon cancer, CAD s/p CABG, CVA with residual blindness, OLGA, HLD, who was admitted on 01/23/2024 currently being treated for pancreatic adenocarcinoma s/p Whipple. , Last A1C was 7.0 ===Diabetes adequately controlled and complicated by s/p Whipple procedure and NEEDING parenteral/ enteral feeds. Most recent A1C: Recent Labs 01/23/24 1706 HA1C 7.0* PLAN 1.Lantus:INCREASE TO 20 units at AM (takes Tresiba 33 units at home daily) 2. Humalog correction Moderate ISS 3. For tonight TPN containing 230 GM CHO component recommend 1unit for 3 gm of carb meal associatedinsulin which will be 76 units in the bag STRONGER I:C 4. Diet: Carb counting advance as tolerated per primary once he is no longer on bowel rest If he starts eating by mouth we will recommend choose lispo for an insulin to carb ratio of 1:10 5. Monitoring: Q4H AT HOME: Patient reports previously taking 33U of Tresiba at home consistently per patient along with using a sliding scale but could not remember what sliding scale he was using but reports maybe using 2-6U 40minutes of this 50 minute visit was spent with the patient in counseling on diabetes and treatment plan, reviewing all glucose and insulin data as well as relevant laboratory results with the patient, and coordination of care on the inpatient unit including nursing and primary team. * Adam Muñoz MD - 01/29/2024 8:30 AM EST Acute Pain Medicine Service - Epidural Daily Management VITAL SIGNS: Visit Vitals BP (!) 190/91 (Patient Position: Lying) Pulse 64 Temp 36.7 ??C (98.1 ??F) (Oral) Resp 18 Ht 175.3 cm (5' 9) Wt 95.3 kg (210 lb) SpO2 97% BMI 31.01 kg/m?? Body mass index is 31.01 kg/m??. Labs: White Blood Cell Date Value Ref Range Status 01/29/2024 7.65 4.00 - 9.50 x10(3)/mcL Final 06/25/2023 8.0 4.0 - 9.5 x10(3)/mcL Final Hemoglobin Date Value Ref Range Status 01/29/2024 8.2 (L) 13.7 - 16.5 g/dL Final 06/25/2023 12.3 (L) 13.7 - 16.5 g/dL Final Hematocrit Date Value Ref Range Status 01/29/2024 24.8 (L) 40.5 - 48.5 % Final 06/25/2023 37.4 (L) 40.5 - 48.5 % Final Platelet Date Value Ref Range Status 01/29/2024 184 145 - 357 x10(3)/mcL Final 06/25/2023 188 145 - 357 x10(3)/mcL Final Prothrombin Time Date Value Ref Range Status 01/23/2024 12.7 (H) 9.4 - 12.5 sec Final 07/18/2021 12.3 9.4 - 12.5 sec Final Partial Thromboplastin Time Date Value Ref Range Status 01/23/2024 26 25 - 37 sec Final Comment: The PTT is NOT appropriate for heparin monitoring. Use the Anti-Xa level for heparin monitoring (HEP UFH) or LMWH monitoring (HEP LMW). A PTT less than 37 seconds generally indicates adequate hemostasis. 07/18/2021 30 25 - 37 sec Final Comment: The PTT is NOT appropriate for heparin monitoring. Use the Anti-Xa level for heparin monitoring (HEP UFH) or LMWH monitoring (HEP LMW). A PTT less than 37 seconds generally indicates adequate hemostasis. Operative Procedures: Procedure(s): @WHIPPLE PROCEDURE (WRVU 52.84) PORTAL VEIN REPAIR (WRVU 13.24) @OMENTAL FLAP, INTRA-ABDOMINAL (WRVU 6.54) APS Opioid Administration Hx All administrations since 01/28/2024 are shown below each listed medication. Other Order Route Rate Dose Action Date HYDROmorphone (pf) (10 mcg/mL), BUPivacaine (pf) 0.1% in sodium chloride 0.9% 250 mL epidural Epidural Rate/Dose Change 01/29/2024 HYDROmorphone (pf) (10 mcg/mL), BUPivacaine (pf) 0.1% in sodium chloride 0.9% 250 mL epidural Epidural 250 mL New Bag 01/29/2024 Epidural 250 mL New Bag 01/28/2024 APMS EPIDURAL ROUNDIN01/29/2024 8:30 AM Average Numeric Rating Pain Score (0-10): 0 Post-Op Day: 6 Epidural Day: 7 Epidural Infusion (solution): HYDROmorphone 10 mcg/mL and BUpivacaine 0.1% Epidural Infusion Rate: 0 mL per hour PCEA Dose: 3 mL every 20 minutes PRN PIEB Dose: 0 mL every 0 minutes Out of Bed: Yes Ambulation: Yes Able to Use Incentive Spirometry: Yes Escalation of Care: No Tolerating Regular Diet: No Ileus: No Epidural Catheter Removed (Intact unless noted in Comments): Yes 01/29/2024 8:30 AM Wero is doing very well this morning. He continues to deny any pain after the epidural was weanedto PCEA-only settings this morning at 0715. He is undergoing a clamp trial right now and continues to have ROBF postoperatively. As it is epidural day 7, the epidural should be removed. Plan: Pain is well-controlled and coagulation status is acceptable (last dose of Lovenox received on 01-27-24 at 2028). Epidural removed with intact tip. Insertion site is free from signs of infection and the site was left open to air after removal. Epidural solution not wasted by APMS. APMS will sign off at this time. Please page [phone] with any epidural-related questions or concerns. NACHO Jonas RN, have performed the documentation for this encounter in the presence of andacting as a scribe for Dr. Adam Muñoz. Anesthesia Staff Patient seen and examined on daily rounds. I agree with the above assessment and plan Adam Muñoz MD [id number] APMS Nurse: Nacho Oreilly RN Attending Physician:: Adam Muñoz MD * Wilton Moore MD - 01/29/2024 6:39 AM EST [facility] Inpatient Progress Note Patient Name: Wero Sadler ; Age: 11 1950; 74 y.o. Room/Bed: [address] [place] [address] Today's Date: 01/29/24 ID: Wero Sadler is a 74 y.o. 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 24 Hour Events: - started Reglan - Lasix IV 20 X1 - sched metop 5q6, dc labetalol, add back prn hydral - dc prevena - increased sang o/p through HEATHER incision yesterday afternoon site which decreased overnight - Maintain NGT to LCWS. - TPN via Mediport - Suppository given with subsequent BM -SBO 160-180 overnight o/w AVSS Subjective: Overall feeling well, offers no complaints this morning. BM x 1 yesterday. 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 2000 mL EBL, 3u PRBC given intra-op. 17 Fr Kd drain posterior to HJ, anterior to PJ. Epidural, krause, NGT, a-line in place. Requiring low-dose pressors, epidural wean, and fluid resuscitation overnight for hypovolemic/vasoplegic shock. 01/23 POD1: HEATHER amylase 12. Started on ASA suppository due to primary PV venorrhaphy. Maintain NGT to LCWS. Intra-op bile fluid cultures with no growth, periop zosyn timed out. Weaned off pressor support, A line discontinued. 01/24 POD2: HEATHER amylase 7. Decrease IVF, downgrade to floor. 01/25 POD3: HEATHER amylase 4. Passing flatus. Failed NGT clamp trial due to distention, nausea, and high bilious output. 15u glargine added due to hyperglycemia >150. 01/26 POD4: Overnight increased drain output slightly more sanguinous in character, Hgb stable at 8.5, CTA abdomen/pelvis with no e/o pseudoaneurysm or active bleeding. Given increased output and chylous fluid intra-op, sent for HEATHER triglycerides which were low (48), no chyle leak. HEATHER amylase <3 - no e/o biochemical leak, drain removed. Maintain NGT to LCWS. TPN via Mediport with 12u insulin per DM recs. Suppository given with subsequent BM. St 4 infiltrate of K Cl & NS - treating with hyaluronidase. Intra-op bile fluid cultures growing bacteroides fragilis - started on empiric Zosyn. 01/27 POD5: Hypertensive with SBP into low 200s with associated CP so EKG obtained showing PACs andRBBB, troponin-T x2 WNL. Started on scheduled IV lopressor. IV Lasix 20mg x 1. TPN concentrated. Ongoing high bilious NGT output - maintain NGT to LCWS, started on scheduled IV Reglan for delayed gastric emptying. Increased bloody drainage from his HEATHER drain site requiring an ostomy bag over the site. 01/28 POD6: Trace s/s drainage from his HEATHER drain site, cont TPN via Mediport, NGT clamp trial, Objective Physical Exam Vitals: Temp: [36.7 ??C (98.1 ??F)-37 ??C (98.6 ??F)] Heart Rate: [60-75] Resp: [13-18] BP: (143-190)/(58-91) Gen: NAD, resting comfortably, pleasant, conversant HEENT: sclerae nonicteric. NGT with thin bilious output, flushed and sumping well on rounds CV : RRR Pulm: breathing comfortably on RA, no respiratory distress Abd: non-distended, soft, essentially nontender throughout. Prevena vac removed revealing midline incision well-approximated with jay, no erythema/drainage. Prior R HEATHER site with ostomy bag, traces/s o/p : Krause to gravity draining CYU Ext: SCDs in place. Skin: warm, dry Labs: Recent Labs 01/29/24 0356 WBC 7.65 HGB 8.2* HCT 24.8* PLATELET 184 No results for input(s): INR in the last 72 hours. Recent Labs 01/29/24 0356 NA 136 K 3.6 CL 99 CO2 30 BUN 12 CREATININE 0.50* Intra-op bile fluid 01/22: Rare Bacteroides fragilis group Abnormal Drains: NGT 1600 (800cc) Assessment: Wero Sadler is a 74 y.o. 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 Yesterday increased bloody drainage from his HEATHER drain site requiring an ostomy bag over the site. We held nightly lovenox, monitored with serial hbg. He remained hemodynamically stable with stable Hgb. The HEATHER drain had trace o/p since yesterday evening; therefore, will restart lovenox and start trending hemograms back to daily. Mauri's postop course is notable for continued high bilious output to his NGT c/w delayed gastric emptying. Will clamp trial this am and if o/p is <200cc will d/c ngt and start cld. OOBTC/PT/ambulate/IS. PROBLEM BASED PLANS: #s/p PV primary venorrhaphy ASA suppository daily Plan to transition to PO ASA once taking in PO #Postop fluid status +4L for admission Hypertension with peripheral edema c/f volume overload Holding home chlorthalidone Concentrate TPN #Hypertension Start IV metoprolol 5mg q6h, dc labetalol, prn hydralazine Holding home lisinopril, amlodipine, chlorthalidone #Post whipple pain control PCEA per APS Scheduled IV Tylenol Hold on PO narcotics until reliable return of bowel function #Post-whipple bowel function BM x 2 following suppository 01/26 NGT clamp trial Start IV Reglan 10mg q6h #Post-whipple anastomotic monitoring HEATHER amylase levels to be drawn day 1-5 POD1 - 12 POD2 - 7 POD3- 4, POD4- <3, drain removed #Nutrition Sips and Chips (Give Meds) TPN for full nutritional support- concentrate #Monitoring for Post-pancreatectomy acquired diabetes Insulin dependent diabetic preop Appreciate Diabetes Management recs On Lantus 15u daily For TPN:1unit for 5gm of carb meal associated insulin which will be 35 units in the bag STRONGER I:C Moderate SSI POC glucose 149-219, 18u lispro yesterday #Post-whipple bile contamination/infection prevention Intraoperative bile cultures with B fragilis - started empiric zosyn 01/26 should complete total 7 days #Post-operative pulmonary function Incentive spirometry, ambulation #Marginal ulcer and DVT prophylaxis PPI IV BID, avoid NSAIDs Lovenox QHS, SCDs #Tubes/lines/drains NGT to LCWS, d/c krause, due to void #Home Medications Carvedilol 25mg daily Flomax 0.4mg daily HOLD Creon until diet advanced Insulin per DM recs HOLD chlorthalidone, amlodipine, lisinopril HOLD aspirin 81mg Omeprazole -> IV PPI Dispo: Floor Code status: Attempt Cardiopulmonary Resuscitation - Inpatient Signed: Wilton Moore MD [facility] Service Team Pager #[phone] 01/29/24 8:39 AM * Nina Tipton RN - 01/28/2024 11:08 PM EST Report called to receiving RN on L4WD. Pt is A&Ox4. VSS on RA. NSR w/ PVC's monitored on tele w/ one 5 beat run of VTACH. made aware, see scanned strips. * Verenice Pérez RN - 01/28/2024 3:44 PM EST OUTCOME EVALUATION NOTE: OUTCOME SUMMARY: Pt AxOx4, VSS except some high BPs scheduled medications given, NSR with PVCs on tele, on RA, 0/10 pain reported, Midline incision CDI wound vac taken off per provider, NGT to low continuous suction and in place Epidural in place and infusing per order See MAR, some bloody drainage noted from HEATHER site colostomy bag placed over it, MD aware and at bedside STAT CBC ordered, pt in bed with call mcdonnell within reach. PLAN MOVING FORWARD: I&O Q4 VS Q4 Ambulation Pain Assessment INDIVIDUALIZED FALL PREVENTION INTERVENTIONS: Patient-specific fall risk factors per assessment: [current deficits]: Epidural, Lines/Cords/Drains, Vision Deficits Assistance [level of assistance required for transfers and ambulation]: 1x assist with walker Supervision [direct monitoring required during toileting and ADLs: Hands On Eyes On Surveillance [continuous indirect monitoring]: Telemetry, O2 Monitoring, Purposeful Rounding Patient-specific fall prevention interventions for sensory deficits provided, if applicable: [X] N/A CARE PLAN GOAL OUTCOME EVALUATION: * Haroon Presley PA - 01/28/2024 3:03 PM EST I was paged to come assess Wero for increased bloody drainage from his HEATHER drain site requiring his RN Verenice to place an ostomy bag over the site. On assessment, Mauri is lying comfortably in bed. Review of his vitals show he is afebrile, hypertensive with SBP mainly in 140- 160s (started scheduled lopressor and 1 dose lasix this morning due to hypertension overnight), regular HR, satting well on RA. Excellent UOP in response to Lasix 1350cc. NGT still with thin bilious output. Prior drain site with overlying ostomy with ~100cc dark sanguinous output in bag, no clots. CTA yesterday with no e/o pseudoaneurysm/bleed. HEATHER drain removed yesterday given no pancreas or chyle leak. Since yesterday's scan he was significantly hypertensive with SBP into the 210s difficult to control, which could potentially lead to pseudoaneurysm/sentinel bleed. Fortunately Mauri is hemodyn amically stable at present. Will proceed with STAT CBC for now, may consider repeat CTA or proceed directly to IR angiogram pending lab results. CASA [place] 1:12PM Update: Hgb stable at 8.2. I was able to review Mauri's case with IR Drs. Campos and Marcello, discussing Mauri's intra-op portalvein tear s/p primary venorrhaphy as well as potential for sentinel bleed 2/2 significant HTN overnight. Would expect massive hemodynamic instability if he were having portal venous bleeding. Given his hemodynamically stability at this juncture, IR recommends trending CBC with close monitoring of his hemodynamics, and to proceed with repeat CTA if anything changes as this would guide any intervention they would provide. IR is aware of his case and the potential need for angiography and will addPhil to their consult list. Dr. Armendariz is the IR attending on for tonight. Will hold Lovenox tonight and reassess resumption tomorrow. CASA [place] 3:02 PM * Haroon Presley PA - 01/28/2024 9:34 AM EST [facility] Inpatient Progress Note Patient Name: Wero Sadler ; Age: 11 1950; 74 y.o. Room/Bed: [facility] Today's Date: 01/28/24 ID: Wero Sadler is a 74 y.o. 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 24 Hour Events: - CTA abdomen/pelvis with no e/o pseudoaneurysm or active bleeding. Given increased output and chylous fluid intra-op, sent for HEATHER triglycerides which were low (48), no chyle leak. HEATHER amylase <3 -no e/o biochemical leak, drain removed. - Maintain NGT to LCWS. - TPN via Mediport with 12u insulin per DM recs. - Suppository given with subsequent BM. - St 4 infiltrate of K Cl & NS - treating with hyaluronidase. - Intra-op bile fluid cultures growing bacteroides fragilis - started on empiric Zosyn. - Hypertensive overnight with SBP 190s-210s requiring prn IV hydralazine x 2, labetalol x 4, associated CP so EKG obtained showing PACs and RBBB, troponin-T x2 WNL - Afebrile, tachycardic up to low 100s overnight though RR this AM, hypertensive as above, satting well on RA. - 50cc PO intake, AUOP to krause, 1.6L NGT output, BM x 2 Subjective: Overall feeling well, offers no complaints this morning. BM x 2 yesterday. 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 2000 mL EBL, 3u PRBC given intra-op. 17 Fr Kd drain posterior to HJ, anterior to PJ. Epidural, krause, NGT, a-line in place. Requiring low- dose pressors, epidural wean, and fluid resuscitation overnight for hypovolemic/vasoplegic shock. 01/23 POD1: HEATHER amylase 12. Started on ASA suppository due to primary PV venorrhaphy. Maintain NGT to LCWS. Intra-op bile fluid cultures with no growth, periop zosyn timed out. Weaned off pressor support, A line discontinued. 01/24 POD2: HEATHER amylase 7. Decrease IVF, downgrade to floor. 01/25 POD3: HEATHER amylase 4. Passing flatus. Failed NGT clamp trial due to distention, nausea, and high bilious output. 15u glargine added due to hyperglycemia >150. 01/26 POD4: Overnight increased drain output slightly more sanguinous in character, Hgb stable at 8.5, CTA abdomen/pelvis with no e/o pseudoaneurysm or active bleeding. Given increased output and chylous fluid intra-op, sent for HEATHER triglycerides which were low (48), no chyle leak. HEATHER amylase <3 - no e/o biochemical leak, drain removed. Maintain NGT to LCWS. TPN via Mediport with 12u insulin per DM recs. Suppository given with subsequent BM. St 4 infiltrate of K Cl & NS - treating with hyaluronidase. Intra-op bile fluid cultures growing bacteroides fragilis - started on empiric Zosyn. 01/27 POD5: Hypertensive with SBP into low 200s with associated CP so EKG obtained showing PACs andRBBB, troponin-T x2 WNL. Started on scheduled IV lopressor. IV Lasix 20mg x 1. TPN concentrated. Ongoing high bilious NGT output - maintain NGT to LCWS, started on scheduled IV Reglan for delayed gastric emptying. Objective Physical Exam Vitals: Temp: [36.8 ??C (98.2 ??F)-37.9 ??C (100.2 ??F)] Heart Rate: [70-104] Resp: [16] BP: (139-218)/(40-111) Gen: NAD, resting comfortably, pleasant, conversant HEENT: sclerae nonicteric. NGT with thin bilious output, flushed and sumping well on rounds CV : RRR Pulm: breathing comfortably on RA, no respiratory distress Abd: non-distended, soft, essentially nontender throughout. Prevena vac removed revealing midline incision well-approximated with jay, no erythema/drainage. Prior R HEATHER site with dressing CDI. : Krause to gravity draining CYU Ext: SCDs in place. Skin: warm, dry Labs: Recent Labs 01/28/24 0339 WBC 6.91 HGB 8.1* HCT 24.0* PLATELET 160 No results for input(s): INR in the last 72 hours. Recent Labs 01/28/24 0339 NA 137 K 3.2* CL 100 CO2 29 BUN 9* CREATININE 0.51* Intra-op bile fluid 01/22: Rare Bacteroides fragilis group Abnormal Drains: NGT 1600 (800cc) Assessment: Wero Sadler is a 74 y.o. 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 Mauri's postop course is notable for continued high bilious output to his NGT c/w delayed gastric emptying. Will maintain NGT to LCWS for today and start scheduled Reglan. Overnight Mauri became increasingly hypertensive with SBP to the low 200s requiring multiple IV antihypertensives. Of note, his home chlorthalidone, amlodipine, and lisinopril have all been held in the acute postop period. Given his high NGT output, GI absorption of PO meds is questionable at this juncture- will continue to hold PO home meds and start scheduled IV lopressor today as well as diuresis with IV lasix. Continue TPN for full nutritional support - I have requested that RD concentrate his PN as much as possible. OOBTC/PT/ambulate/IS. PROBLEM BASED PLANS: #s/p PV primary venorrhaphy ASA suppository daily Plan to transition to PO ASA once taking in PO #Postop fluid status +4L for admission Hypertension with peripheral edema c/f volume overload Holding home chlorthalidone IV Lasix 20mg x 1 today Concentrate TPN #Hypertension Start IV metoprolol 5mg q6h Holding home lisinopril, amlodipine, chlorthalidone #Post whipple pain control PCEA per APS Scheduled IV Tylenol Hold on PO narcotics until reliable return of bowel function #Post-whipple bowel function BM x 2 following suppository 01/26 Maintain NGT to LCWS given high output c/w DGE Start IV Reglan 10mg q6h #Post-whipple anastomotic monitoring HEATHER amylase levels to be drawn day 1-5 POD1 - 12 POD2 - 7 POD3- 4, POD4- <3, drain removed #Nutrition Sips and Chips (Give Meds) TPN for full nutritional support- concentrate #Monitoring for Post-pancreatectomy acquired diabetes Insulin dependent diabetic preop Appreciate Diabetes Management recs On Lantus 15u daily 12u insulin in TPN Moderate SSI POC glucose 149-219, 18u lispro yesterday #Post-whipple bile contamination/infection prevention Intraoperative bile cultures with B fragilis - started empiric zosyn 01/26 #Post-operative pulmonary function Incentive spirometry, ambulation #Marginal ulcer and DVT prophylaxis PPI IV BID, avoid NSAIDs Lovenox QHS, SCDs #Tubes/lines/drains NGT to LCWS, maintain krause catheter due to diuresis today #Home Medications Carvedilol 25mg daily Flomax 0.4mg daily HOLD Creon until diet advanced Insulin per DM recs HOLD chlorthalidone, amlodipine, lisinopril HOLD aspirin 81mg Omeprazole -> IV PPI Dispo: Floor Code status: Attempt Cardiopulmonary Resuscitation - Inpatient Signed: [facility] Service Team Pager #[phone] 01/28/24 9:34 AM * Heavenly Martinez APRN - 01/28/2024 9:23 AM ESTSummary: He is blind-go right to the bed and speak to him Images from the original note were not included. .Follow Up Diabetes Consult Patient Interview Mr. Sadler to have TPN starting today. Last week when we met we thought that his insulin to carb ratio for parenteral feeding starting point would be 1-10. Discussed with registered dietitian. he will be changing to more CARBS with dextrose at which is 118 g of carbohydrates today for his TPN first bag ans will now increase to 170 GM CHO . Mr Sadler agrees-he is very pleasant and straightforward. TPN NOTES FROM RD 01/27 Parenteral Nutrition Indications: Need to restrict oral or enteral intake: bowel rest TPN will provide 1518 kcal as 110 g AA, 170 g dextrose, 50 g SMOF lipid in 1560mL volume and 64 mEq/L Na 34 units of insulin (1:5 insulin to carb ratio per diabetes management team) Increasing calories, K and Mag Concentrating per team request Monitoring: Daily BMP with Mg and Phos Weekly LFTs and TG Daily Weights I was able to discuss plan with provider CASA Dominguez - Surg Onc 5012 . Objective Temp: [36.8 ??C (98.2 ??F)-37.9 ??C (100.2 ??F)] Heart Rate: [70-104] Resp: [16] BP: (139-218)/(40-111) SpO2: [91 %-96 %] Heart Rate from SpO2: [75 bpm-105 bpm] Current Regimen Lantus:15 units at AM (takes Tresiba 33 units at home daily) Lispro for correction q 4 hours using moderate correction scale TPN last night contained 12 units for TPN with 118 GM CHO (used a 1:10 I:C) Recent Glucose Levels Recent Labs 01/28/24 0752 01/28/24 0353 01/27/24 2352 01/27/24 1934 01/27/24 1542 01/27/24 1209 01/27/24 0747 01/27/24 0311 01/27/24 0036 01/26/24 2003 01/26/24 1614 01/26/24 1140 POCGLU 209* 185 197 197 219* 202* 149 155 162 139 143 140 ASSESSMENT Patient is a 73 y.o. years old male with PMH significant for spancreatic head adenocarcinoma, high risk prostate cancer, colon cancer, CAD s/p CABG, CVA with residual blindness, OLGA, HLD, who was admitted on 01/23/2024 currently being treated for pancreatic adenocarcinoma s/p Whipple. , Last A1C was 7.0 Diabetes adequately controlled and complicated by s/p Whipple procedure. Most recent A1C: Recent Labs 01/23/24 1706 HA1C 7.0* Patient reports previously taking 33U of Tresiba at home consistently per patient along with using a sliding scale but could not remember what sliding scale he was using but reports maybe using 2-6U.Insulin need will likely change now that he is s/p Whipple procedure. Currently recommend moderate ISS. PLAN 1. Humalog correction Moderate ISS 2. For tonight TPN recommend 1unit for 5gm of carb meal associated insulin which will be 35 units in the bag STRONGER I:C 3. Diet: Carb counting advance as tolerated per primary once he is no longer on bowel rest If he starts eating by mouth we will recommend an insulin to carb ratio of 1:15 LANTUS using 4. Monitoring: Q4H 25minutes of this 35minute visit was spent with the patient in counseling on diabetes and treatmentplan, reviewing all glucose and insulin data as well as relevant laboratory results with the patient, and coordination of care on the inpatient unit including nursing and primary team. * Adam Muñoz MD - 01/28/2024 9:20 AM EST Acute Pain Medicine Service - Epidural Daily Management VITAL SIGNS: Visit Vitals BP 164/57 Pulse 70 Temp 37 ??C (98.6 ??F) (Oral) Resp 16 Ht 175.3 cm (5' 9) Wt 95.3 kg (210 lb) SpO2 93% BMI 31.01 kg/m?? Body mass index is 31.01 kg/m??. Labs: White Blood Cell Date Value Ref Range Status 01/28/2024 6.91 4.00 - 9.50 x10(3)/mcL Final 06/25/2023 8.0 4.0 - 9.5 x10(3)/mcL Final Hemoglobin Date Value Ref Range Status 01/28/2024 8.1 (L) 13.7 - 16.5 g/dL Final 06/25/2023 12.3 (L) 13.7 - 16.5 g/dL Final Hematocrit Date Value Ref Range Status 01/28/2024 24.0 (L) 40.5 - 48.5 % Final 06/25/2023 37.4 (L) 40.5 - 48.5 % Final Platelet Date Value Ref Range Status 01/28/2024 160 145 - 357 x10(3)/mcL Final 06/25/2023 188 145 - 357 x10(3)/mcL Final Prothrombin Time Date Value Ref Range Status 01/23/2024 12.7 (H) 9.4 - 12.5 sec Final 07/18/2021 12.3 9.4 - 12.5 sec Final Partial Thromboplastin Time Date Value Ref Range Status 01/23/2024 26 25 - 37 sec Final Comment: The PTT is NOT appropriate for heparin monitoring. Use the Anti-Xa level for heparin monitoring (HEP UFH) or LMWH monitoring (HEP LMW). A PTT less than 37 seconds generally indicates adequate hemostasis. 07/18/2021 30 25 - 37 sec Final Comment: The PTT is NOT appropriate for heparin monitoring. Use the Anti-Xa level for heparin monitoring (HEP UFH) or LMWH monitoring (HEP LMW). A PTT less than 37 seconds generally indicates adequate hemostasis. Operative Procedures: Procedure(s): @WHIPPLE PROCEDURE (WRVU 52.84) PORTAL VEIN REPAIR (WRVU 13.24) @OMENTAL FLAP, INTRA-ABDOMINAL (WRVU 6.54) APS Opioid Administration Hx All administrations since 01/27/2024 are shown below each listed medication. Other Order Route Rate Dose Action Date HYDROmorphone (pf) (10 mcg/mL), BUPivacaine (pf) 0.1% in sodium chloride 0.9% 250 mL epidural Epidural 250 mL New Bag 01/28/2024 Epidural 250 mL New Bag 01/27/2024 APMS EPIDURAL ROUNDIN01/28/2024 9:20 AM Average Numeric Rating Pain Score (0-10): 0 Post-Op Day: 5 Epidural Day: 6 Epidural Infusion (solution): HYDROmorphone 10 mcg/mL and BUpivacaine 0.1% Epidural Infusion Rate: 3 mL per hour PCEA Dose: 3 mL every 20 minutes PRN PIEB Dose: 0 mL every 0 minutes Out of Bed: Yes Ambulation: Yes Able to Use Incentive Spirometry: Yes Escalation of Care: No Tolerating Regular Diet: No Ileus: No Epidural Catheter Removed (Intact unless noted in Comments): No Wero is doing very well this morning. He denies any pain and offers no complaints, other than irritation that his NG tube is still in place. Wero denies any nausea at this time and reports having two bowel movements yesterday. He is ambulating without issue and denies any numbness, tingling, or itching. The epidural insertion site is free from signs of infection and the dressing remains occlusive. Plan: We made no changes to the epidural regimen today given the NG tube is still in place, but will planto remove the epidural tomorrow given the length of time it has been in. NACHO Jonas, RN, have performed the documentation for this encounter in the presence of andacting as a scribe for Dr. Adam Muñoz. Acute Pain Medicine Attending I have seen and examined the patient on daily rounds. I agree with the above assessment and plan. Adam Muñoz MD [id number] [facility] Nurse: Nacho Oreilly RN Fellow:: Kolton Morejon DO Attending Physician:: Adam Muñoz MD * Verenice Pérez RN - 01/27/2024 4:24 PM EST OUTCOME EVALUATION NOTE: OUTCOME SUMMARY: Pt AxOX4, VSS except one high BP prn labetalol given See HARESH NSR with frequent PVCs on tele, complains of 0/10 pain, L NGT in place to low continuous suction, TPN started and infusing, Wound vac in place; dressing CDI, Epidural in place and infusing per order See HEATHER HUTSON taken out via provider, Ambulated in adan x3 with walker, x2 BM noted this shift, pt in bed with call mcdonnell within reach. PLAN MOVING FORWARD: I&O Q4 VS Q4 Ambulation Pain Assessments INDIVIDUALIZED FALL PREVENTION INTERVENTIONS: Patient-specific fall risk factors per assessment: [current deficits]: Epidural, Lines/Cords/Drains/ Vision Deficits Assistance [level of assistance required for transfers and ambulation]: 1x assist with walker Supervision [direct monitoring required during toileting and ADLs]: Hands On Eyes On Surveillance [continuous indirect monitoring]: Telemetry, O2 Monitoring, Purposeful Rounding Patient-specific fall prevention interventions for sensory deficits provided, if applicable: [X] N/A CARE PLAN GOAL OUTCOME EVALUATION: * Abby Cannon, PT - 01/27/2024 12:02 PM EST Physical Therapy Note 2 Patient profile: Wero Sadler is a 73 y.o. male admitted on 01/23/[address] Tor Balbuena MD with PMH of legal blindness, colon cancer (resected 2008), prostate cancer (s/p androgen deprivation and RT), ASCVD (s/p 3 vessel CABG), PVD s/p carotid endarterectomy, prior CVA, HLD, HTN, OLGA, IDDM and pancreas cancer s/p neoadjuvant chemotherapy with 8 cycles of mFOLFIRINOX and SBRT who is now s/p exploratory laparotomy for Whipple procedure 01/22. Interval History: per MD note: - Failed NGT clamp trial . (distention, nausea and globulus sensation in throat 3 hrs after clamping 375cc bilious output) - HEATHER amylase 4 - HEATHER drain output (340cc overnight), slightly more sanguineous - CTA abdomen w/ no evidence of bleeding - st 4 infiltrate of K Cl & NS. Treating with hyaluronidase Social History: lives alone in [place], [place]; has friends that grocery shop for him and prepare meals; also receives [id number]; uses [employer] for transportation as needed; patient reports having a neighbor with whom he has a glass of wine every evening Home set-up: 2-level home with his bedroom upstairs Bathroom Set-up: 2 bathrooms upstairs and 1 downstairs Stairs: 1 step to enter home; 5, then a landing, then 8 more steps with bilateral railings to 2nd floor Baseline Mobility: independent without device in home; uses a cane for the visually impaired for community ambulation Equipment at home: cane for the visually impaired; grab bars in shower; high toilet Fall history: no Precautions/Special Considerations: fall risk; abdominal incision; legally blind (prosthetic L eye and impaired vision in R eye from CVA) Lines: PIV's, NGT to LCWS, krause, Prevena wound vac from abdominal incision, R abdominal HEATHER drain, PCEA Activity Orders: ambulate 3x/day Diet: NPO Mobility and Positioning Recommendations: Pt. to utilize CGA and rolling walker for ambulation and transfers with nursing. Please encourage up to chair daily. Pt encouraged to ambulate frequently with staff, getting into the bathroom for toileting and walking out in the adan >/= 3 times daily as able. Subjective: The walking is getting easier. 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; able to see light, shadows, general outline of people Skin: abdominal incision with Prevena wound vac; TKA incision scars on both knees; sternal incisionscar Musculoskeletal: ROM: WFL Strength: WFL but mild, generalized LE weakness Sensation: grossly intact light touch Bed Mobility: Supine to Sit: minimal assist toward his R with HOB elevated; assist to use sidelying transition Sit to Supine: CGA and cues to use sidelying transition Transfers: Sit to Stand: CGA from bed to walker support; cues to wait until equipment was fully set up as he was slightly impulsive with trying to stand Stand to Sit: CGA with verbal cues for hand placement on bed prior to sit Gait: Distance: 150 feet Device used: rolling walker Level of assist: CGA for walker guidance due to blindness and verbal cues for upright posture and body position relative to walker Gait mechanics: step-through gait Stairs: on 6 footstool placed next to bed, using bed rail on L and walker on R simulating bilateral rails, ascended and descended x 15 with CGA with gait belt; did step-up and step-back as well as step-up then over off front of step Balance: Sitting Static: good Sitting Dynamic: good Standing Static: good with walker support Standing Dynamic / Gait: good using rolling walker for ambulation and bilateral support for UE's onrail/walker during step-ups Education: Reinforced importance of frequent ambulation and practice with step- ups in therapy to gain strength for stair management at home. He has been walking diligently with nursing staff 4x/day for several laps in the hallway each time. Pt left in bed with all needs in reach (paddle call mcdonnell, LONE LEAD LINEMAN, phone) following visit. Assessment: Wero Sadler was seen today for physical therapy treatment session for continuation of POC. Mauri demonstrated improvement in transfers and gait and was able to initiate stair management today, using a footstool next to his bed. He tolerated all activity well and did not need to use his LONE LEAD LINEMAN during this session. He remains with NGT to WS due to failed clamping trial. Anticipate he will be able to return home given his current trajectory of progress which would be ideal given his visual impairment and familiarity with his own home. He would benefit from an OT consult to assess ADL's and assure accommodations for visual impairment are optimal for home management. Pt will benefit from ongoing therapeutic interventions to achieve therapy goals. Inpatient Physical Therapy Plan: 2-4 times/wk for balance training, bed mobility training, gait training, patient/family education, stair training, strengthening, and transfer training Discharge Recommendations: Based on current findings- home with home health Consult Recommendations: Occupational therapy consult Equipment needs: to be determined Physical Therapy Goals: To be achieved by 02/01/24: Pt. to demonstrate knowledge of safety limitations and precautions and will appropriately request assistance for functional activities and to mobilize. Pt. to demonstrate understanding of appropriate exercises. Pt. to perform bed mobility independently. Pt. to perform sit to stand transfers with modified independence using a cane. Pt. to ambulate 150 feet with modified independence using a straight cane. Pt. to ambulate up/down 13 step/stairs using two rails with modified independence. Pt will tolerate progression of mobility with stable vital signs. Time IN / OUT: 11:25-12:02 Total Time: 37 minutes; functional mobility, gait, stairs ABBY CANNON, PT Pager: [phone] Physical Therapy Inpatient Rehabilitation Department * Heavenly Martinez APRN - 01/27/2024 10:21 AM EST .Follow Up Diabetes Consult Patient Interview Mr. Sadler to have TPN starting today. Last week when we met we thought that his insulin to carb ratio for parenteral feeding starting point would be 1-10. Discussed with registered dietitian. he will be starting with dextrose at 118 which is 118 g of carbohydrates today for his TPN first bag. Objective Temp: [36.4 ??C (97.5 ??F)-37.7 ??C (99.9 ??F)] Heart Rate: [68-79] Resp: [15] BP: (102-173)/(65-82) SpO2: [93 %-96 %] Heart Rate from SpO2: [67 bpm-77 bpm] Current Regimen Lantus:15 units at AM Lispro for correction q 4 hours using moderate correction scale Recent Glucose Levels Recent Labs 01/27/24 0747 01/27/24 0311 01/27/24 0036 01/26/24200201/26/24 1614 01/26/24 1140 01/26/24 0820 01/26/24 0504 01/26/24 0024 01/25/24 2019 01/25/24 1613 01/25/24 1142 POCGLU 149 155 162 139 143 140 182 155 146 168 150 199 ASSESSMENT Patient is a 73 y.o. years old male with PMH significant for spancreatic head adenocarcinoma, high risk prostate cancer, colon cancer, CAD s/p CABG, CVA with residual blindness, OLGA, HLD, who was admitted on 01/23/2024 currently being treated for pancreatic adenocarcinoma s/p Whipple. , Last A1C was 7.0 Diabetes adequately controlled and complicated by s/p Whipple procedure. Most recent A1C: Recent Labs 01/23/24 1706 HA1C 7.0* Patient reports previously taking 33U of Tresiba at home consistently per patient along with using a sliding scale but could not remember what sliding scale he was using but reports maybe using 2-6U.Insulin need will likely change now that he is s/p Whipple procedure. Currently recommend moderate ISS. If patient begin receiving nutrition by PO or through TF or TPN recommend a 1:10 carb ratio. Currently BG are below 100, but if BG above 150 tomorrow recommend starting insulin glargine 15U dailyfor basal insulin. PLAN 1. Humalog correction Moderate ISS 2. For tonight TPN recommend 1unit for 10gm of carb meal associated insulin which will be 12 units in the bag 3. Diet: Carb counting advance as tolerated per primary If he starts eating by mouth we will recommend an insulin to carb ratio of 1:15 4. Monitoring: Q4H 25minutes of this 35minute visit was spent with the patient in counseling on diabetes and treatmentplan, reviewing all glucose and insulin data as well as relevant laboratory results with the patient, and coordination of care on the inpatient unit including nursing and primary team. * Manolo Meza MD - 01/27/2024 9:04 AM EST Acute Pain Medicine Service - Epidural Daily Management VITAL SIGNS: Visit Vitals BP 159/70 Pulse 79 Temp 37.2 ??C (99 ??F) (Oral) Resp 15 Ht 175.3 cm (5' 9) Wt 95.3 kg (210 lb) SpO2 94% BMI 31.01 kg/m?? Body mass index is 31.01 kg/m??. Labs: White Blood Cell Date Value Ref Range Status 01/27/2024 4.35 4.00 - 9.50 x10(3)/mcL Final 06/25/2023 8.0 4.0 - 9.5 x10(3)/mcL Final Hemoglobin Date Value Ref Range Status 01/27/2024 8.5 (L) 13.7 - 16.5 g/dL Final 06/25/2023 12.3 (L) 13.7 - 16.5 g/dL Final Hematocrit Date Value Ref Range Status 01/27/2024 25.2 (L) 40.5 - 48.5 % Final 06/25/2023 37.4 (L) 40.5 - 48.5 % Final Platelet Date Value Ref Range Status 01/27/2024 147 145 - 357 x10(3)/mcL Final 06/25/2023 188 145 - 357 x10(3)/mcL Final Prothrombin Time Date Value Ref Range Status 01/23/2024 12.7 (H) 9.4 - 12.5 sec Final 07/18/2021 12.3 9.4 - 12.5 sec Final Partial Thromboplastin Time Date Value Ref Range Status 01/23/2024 26 25 - 37 sec Final Comment: The PTT is NOT appropriate for heparin monitoring. Use the Anti-Xa level for heparin monitoring (HEP UFH) or LMWH monitoring (HEP LMW). A PTT less than 37 seconds generally indicates adequate hemostasis. 07/18/2021 30 25 - 37 sec Final Comment: The PTT is NOT appropriate for heparin monitoring. Use the Anti-Xa level for heparin monitoring (HEP UFH) or LMWH monitoring (HEP LMW). A PTT less than 37 seconds generally indicates adequate hemostasis. Operative Procedures: Procedure(s): @WHIPPLE PROCEDURE (WRVU 52.84) PORTAL VEIN REPAIR (WRVU 13.24) @OMENTAL FLAP, INTRA-ABDOMINAL (WRVU 6.54) APS Opioid Administration Hx All administrations since 2024 are shown below each listed medication. Other Order Route Rate Dose Action Date HYDROmorphone (pf) (10 mcg/mL), BUPivacaine (pf) 0.1% in sodium chloride 0.9% 250 mL epidural Epidural 250 mL New Bag 01/27/2024 Epidural 250 mL New Bag 2024 APMS EPIDURAL ROUNDIN01/27/2024 8:30 AM Average Numeric Rating Pain Score (0-10): 0 Post-Op Day: 4 Epidural Day: 5 Epidural Infusion (solution): HYDROmorphone 10 mcg/mL and BUpivacaine 0.1% Epidural Infusion Rate: 3 mL per hour PCEA Dose: 3 mL every 20 minutes PRN Out of Bed: Yes Ambulation: Yes Able to Use Incentive Spirometry: Yes Escalation of Care: No Tolerating Regular Diet: No Ileus: No Epidural Catheter Removed (Intact unless noted in Comments): No Wero is doing very well today. He was enjoying his first food (yogurt) this morning when we arrived for rounds. He states that his pain is very well controlled and has not needed to use his epidural button at all. 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 The epidural insertion site is clean, and free from signs of infection. The dressing remains occlusive. Plan: there were no changes made to the epidural settings today; we will ideally give Wero more time to allow his bowels to become functional before removing the epidural. IZuleima RN, have performed the documentation for this encounter in the presence of and acting as a scribe for Dr. Manolo Gamboa. [facility] Nurse: Zuleima Aguirre RN Fellow:: Kolton Morejon DO Attending Physician:: Manolo Meza MD I performed the above scribed service and agree with the accuracy of the note. Manolo Meza MD * Tor Balbuena MD - 01/27/2024 7:00 AM EST [facility] Inpatient Progress Note Patient Name: Wero Sadler ; Age: 11 1950; 74 y.o. Room[address]Bed[address] Today's Date: 01/27/24 ID: Wero Sadler is a 74 y.o. 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 24 Hour Events: - Failed NGT clamp trial . (distention, nausea and globulus sensation in throat 3 hrs after clamping 375cc bilious output) - HEATHER amylase 4 - HEATHER drain output (340cc overnight), slightly more sanguineous - CTA abdomen w/ no evidence of bleeding - st 4 infiltrate of K Cl & NS. Treating with hyaluronidase Subjective: Overall feeling well - Denies abdominal pain. + flatus Hospital Course: 01/22 POD0: To OR for exploratory laparotomy, Whipple procedure c/b portal vein tear necessitating inflow and outflow occlusion (full dose heparin given) to allow for primary venorrhaphy, internalized pancreatic duct stent, Billroth II reconstruction. 2000 mL EBL, 3u PRBC given intra-op. 17 Fr Kd drain posterior to HJ, anterior to PJ. Epidural, krause, NGT, a-line in place. Requiring low-dose pressors, epidural wean, and fluid resuscitation overnight for hypovolemic/vasoplegic shock. 01/23 POD1: HEATHER amylase 12. Started on ASA suppository due to primary PV venorrhaphy. Maintain NGT to LCWS. Awaiting intra-op bile fluid cultures. Weaning pressors. 01/24 POD2: Decrease IVF, JPA pending. OOB. Downgrade to floor. 01/25 POD3: JPA 7/4, + Flatus, Failed NGT clamp trial . (distention, nausea and globulus sensation in throat 3 hrs after clamping 375cc bilious output). 15u Glargine added 01/26 POD4: Moderate distention, keept NGT and will start TPN, increased HEATHER drain output with change in consistency, CTA abdomen w/ no evidence of bleeding, HEATHER trigl pending, st 4 infiltrate of K Cl & NS. Treating with hyaluronid. Objective Physical Exam Vitals: Temp: [36.4 ??C (97.5 ??F)-37.7 ??C (99.9 ??F)] Heart Rate: [68-78] Resp: [15] BP: (102-173)/(65-82) Gen: NAD, resting comfortably, pleasant, conversant HEENT: sclerae nonicteric. NGT with thin bilious output, flushed and sumping well on rounds CV : RRR Pulm: breathing comfortably on RA, no respiratory distress Abd: non-distended, soft, essentially nontender throughout. Prevena vac in place holding suction. RJP with SS output. : Krause to gravity draining CYU Ext: SCDs in place. Skin: warm, dry Labs: Recent Labs 01/27/24 0048 WBC 4.35 HGB 8.5* HCT 25.2* PLATELET 147 No results for input(s): INR in the last 72 hours. Recent Labs 01/27/24 0048 NA 137 K 3.3* CL 101 CO2 27 BUN 10 CREATININE 0.49* Intra-op bile fluid 01/22: NGTD Drains: HEATHER 368(75) cc NGT 730(900)cc. Assessment: Wero Sadler is a 74 y.o. 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 Wero failed NGT clamp trial yesterday (distention, nausea and globulus sensation in throat 3 hrs after clamping followed by 375cc bilious output). He is having moderate distention this am, will keep NGT and start TPN. Increased HEATHER drain output overnight with change in consistency. CTA abdomen pelvis w/ no evidence of bleeding, will cont to monitor o/p and obtain HEATHER trigl. Vasc access team reported st 4 infiltrate of K Cl & NS and is treating with hyaluronid. OOBTC/PT/ambulate/IS. 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 dependent diabetic preop #Post-whipple bile contamination/infection prevention Intraoperative bile cultures with ngtd #Post-operative pulmonary function Incentive spirometry, ambulation #Marginal ulcer and DVT prophylaxis PPI IV BID, avoid NSAIDs Lovenox QHS, SCDs #Tubes/lines/drains NGT to LCWS, HEATHER to bulb suction, krause catheter #Home Medications Carvedilol 25mg daily Flmoax 0.4mg daily HOLD Creon until diet advanced Insulin per DM recs HOLD chlorthalidone, amlodipine, lisinopril HOLD aspirin 81mg Omeprazole -> IV PPI Dispo: Floor Code status: Attempt Cardiopulmonary Resuscitation - Inpatient Signed: Wilton Moore MD [facility] Service Team Pager #[phone] 01/27/24 5:48 AM [facility] surgery attending addendum I agree with Dr. Moore's note above. I was notified last night at 2 in the morning by Dr. Stock, senior resident on-call, that the drain character changed with concern for sanguinous or bloody output whereas previously it was serosanguineous. He was hemodynamically stable with a benign abdomen but given the concern for sentinel bleed we made a plan to proceed with stat GI bleed protocol CT angiogram with also portal venous phase imaging. I was able to review those images which were overall very reassuring. There was no evidence of extravasation, pseudoaneurysm formation or hematoma in the region of the Whipple anatomy. This morning clinically he is feeling well. He had no complaints of abdominal pain. The epidural is still in place. The HEATHER did look more like bright red blood but still very low output. His hemoglobin has remained stable so at this point I think we will take a cautious approach with monitoring and given the low amylase and the drain and as long as triglyceride level for example as low as we did notice some chylous fluid in the OR I would likely remove the drain later this afternoon-the drain itself may be sitting on top of a blood vessel and on suction this could be contributing to the bleeding possibly. The other alternative would be to go to gravity drainage for a period of time and then to remove the drain. These decisions will be made this afternoon. In the meantime though I thought he looked a little distended and though he is walking in the hallway has yet to have any return of bowel function and given the B2 anatomy with bilious fluid in the NG we will the NG in place to low continuous wall suction. Roberto Balbuena MD 01/27/2024 * Nafisa Wu RN - 2024 7:50 PM EST OUTCOME EVALUATION NOTE: OUTCOME SUMMARY: Patient is AAOX4, laying in bed on room air with lt NGT in place to LCS. Rt chest port, bilateral PIVs noted with infusions, see eMAR for details. Epidural in place, and infusing per order. Midline inc to previna wound vac, rt HEATHER drain in place, and krause draining to gravity free of kinks, and loops observed. Call light within reach, fall precautions, and safety measures in place. HEATHER output notable increase since start of shift, team aware. MD present to bedside to assess patient. SBP elevated, prn labetalol given, see eMAR for details AM labs drawn. K 3.3 replaced with 40mEqs KCL IV Stat CT Abd&Pel completed PLAN MOVING FORWARD: VS Q4 I&Os Q4 BG Q4 Ambulate in halls TID Plan: Nutrition? CPG GOAL OUTCOME EVALUATION: * Verenice Pérez RN - 2024 2:48 PM EST OUTCOME EVALUATION NOTE: OUTCOME SUMMARY: Pt AxOx4, VSS on RA, reports 0/10 pain, NSR with frequent PVCs on tele Team Aware, L NGT in place to Low continuous suction, Midline dressing CDI, Epidural in place and infusing per order with dressing CDI, HEATHER in place, AUOP per krause, ambulated in adan with walker x3, complaints of feeling like something is stuck in throat team made aware, pt in bed with call mcdonnell within reach. PLAN MOVING FORWARD: I&Os Q4 VS q4 Ambulation Pain assessments INDIVIDUALIZED FALL PREVENTION INTERVENTIONS: Patient-specific fall risk factors per assessment: [current deficits]: Epidural, Lines/Cords/Drains, Vision deficits Assistance [level of assistance required for transfers and ambulation]: 1x assist with walker Supervision [direct monitoring required during toileting and ADLs]: Hands On Eyes On Surveillance [continuous indirect monitoring]: Telemetry, O2 Monitoring, Purposeful Rounding Patient-specific fall prevention interventions for sensory deficits provided, if applicable: [X] N/A CARE PLAN GOAL OUTCOME EVALUATION: * Manolo Meza MD - 2024 11:00 AM EST Acute Pain Medicine Service - Epidural Daily Management VITAL SIGNS: Visit Vitals BP 154/67 Pulse 69 Temp 37 ??C (98.6 ??F) (Axillary) Resp 18 Ht 175.3 cm (5' 9) Wt 95.3 kg (210 lb) SpO2 93% BMI 31.01 kg/m?? Body mass index is 31.01 kg/m??. Labs: White Blood Cell Date Value Ref Range Status 2024 4.88 4.00 - 9.50 x10(3)/mcL Final 06/25/2023 8.0 4.0 - 9.5 x10(3)/mcL Final Hemoglobin Date Value Ref Range Status 2024 8.7 (L) 13.7 - 16.5 g/dL Final 06/25/2023 12.3 (L) 13.7 - 16.5 g/dL Final Hematocrit Date Value Ref Range Status 2024 26.2 (L) 40.5 - 48.5 % Final 06/25/2023 37.4 (L) 40.5 - 48.5 % Final Platelet Date Value Ref Range Status 2024 126 (L) 145 - 357 x10(3)/mcL Final 06/25/2023 188 145 - 357 x10(3)/mcL Final Prothrombin Time Date Value Ref Range Status 01/23/2024 12.7 (H) 9.4 - 12.5 sec Final 07/18/2021 12.3 9.4 - 12.5 sec Final Partial Thromboplastin Time Date Value Ref Range Status 01/23/2024 26 25 - 37 sec Final Comment: The PTT is NOT appropriate for heparin monitoring. Use the Anti-Xa level for heparin monitoring (HEP UFH) or LMWH monitoring (HEP LMW). A PTT less than 37 seconds generally indicates adequate hemostasis. 07/18/2021 30 25 - 37 sec Final Comment: The PTT is NOT appropriate for heparin monitoring. Use the Anti-Xa level for heparin monitoring (HEP UFH) or LMWH monitoring (HEP LMW). A PTT less than 37 seconds generally indicates adequate hemostasis. Operative Procedures: Procedure(s): @WHIPPLE PROCEDURE (WRVU 52.84) PORTAL VEIN REPAIR (WRVU 13.24) @OMENTAL FLAP, INTRA-ABDOMINAL (WRVU 6.54) APS Opioid Administration Hx All administrations since 01/25/2024 are shown below each listed medication. Other Order Route Rate Dose Action Date HYDROmorphone (pf) (10 mcg/mL), BUPivacaine (pf) 0.1% in sodium chloride 0.9% 250 mL epidural Epidural 250 mL New Bag 2024 Epidural 3 mL/hr 250 mL New Bag 01/25/2024 APMS EPIDURAL ROUNDIN2024 11:00 AM Average Numeric Rating Pain Score (0-10): 0 Post-Op Day: 3 Epidural Day: 4 Epidural Infusion (solution): HYDROmorphone 10 mcg/mL and BUpivacaine 0.1% Epidural Infusion Rate: 3 mL per hour PCEA Dose: 3 mL every 20 minutes PRN PIEB Dose: 0 mL every 0 minutes Out of Bed: Yes Ambulation: Yes Able to Use Incentive Spirometry: Yes Escalation of Care: No Tolerating Regular Diet: No Ileus: No Epidural Catheter Removed (Intact unless noted in Comments): No Pain well controlled, Continue at current rate Attending Physician:: Manolo Meza MD * Uday Gomes MD - 2024 8:12 AM EST [facility] Inpatient Progress Note Patient Name: Wero Sadler DOB; Age: 11 1950; 74 y.o. Room/Bed: [address] Today's Date: 01/26/24 ID: Wero Sadler is a 74 y.o. male with PMH of colon cancer (resected 2008), prostate cancer (s/p androgen deprivation and RT), ASCVD (s/p 3 vessel CABG), PVD s/p carotid endarterectomy, prior CVA, HLD, HTN, OLGA, IDDM and pancreas cancer s/p neoadjuvant chemotherapy with 8 cycles of mFOLFIRINOX and SBRT who is now 3 Days Post-Op s/p exploratory laparotomy, Whipple procedure c/b portal vein tear necessitating inflow and outflow occlusion (full dose heparin given) to allow for primary venorrhaphy, internalized pancreatic duct stent, Billroth II reconstruction. 24 Hour Events: - JPA 7 yesterday PM - OOB walking yesterday - Labs stable this AM - AUOP to krause. HEATHER 75 cc. NGT 900cc. Subjective: Overall feeling well - Denies abdominal pain. + flatus Hospital Course: 01/22 POD0: To OR for exploratory laparotomy, Whipple procedure c/b portal vein tear necessitating inflow and outflow occlusion (full dose heparin given) to allow for primary venorrhaphy, internalized pancreatic duct stent, Billroth II reconstruction. 2000 mL EBL, 3u PRBC given intra-op. 17 Fr Kd drain posterior to HJ, anterior to PJ. Epidural, krause, NGT, a-line in place. Requiring low- dose pressors, epidural wean, and fluid resuscitation overnight for hypovolemic/vasoplegic shock. 01/23 POD1: HEATHER amylase 12. Started on ASA suppository due to primary PV venorrhaphy. Maintain NGT to LCWS. Awaiting intra-op bile fluid cultures. Weaning pressors. 01/24 POD2: Decrease IVF, JPA pending. OOB. Downgrade to floor. 01/25 POD3: JPA 7 this AM. + Flatus, NGT clamp trial this AM. 15u Glargine added Objective Physical Exam Vitals: Temp: [36.8 ??C (98.2 ??F)-37 ??C (98.6 ??F)] Heart Rate: [69-82] Resp: [15-18] BP: (124-180)/(61-76) Gen: NAD, resting comfortably, pleasant, conversant HEENT: sclerae nonicteric. NGT with thin bilious output, flushed and sumping well on rounds CV : RRR Pulm: breathing comfortably on RA, no respiratory distress Abd: non-distended, soft, essentially nontender throughout. Prevena vac in place holding suction. RJP with thin SS output. : Krause to gravity draining CYU Ext: SCDs in place. Skin: warm, dry Labs: Recent Labs 01/26/24 0022 WBC 4.88 HGB 8.7* HCT 26.2* PLATELET 126* Recent Labs 01/23/24 1706 INR 1.1 Recent Labs 01/26/24 0022 NA 138 K 3.6 CL 102 CO2 30 BUN 8* CREATININE 0.51* Intra-op bile fluid 01/22: NGTD Drains: HEATHER 75 cc NGT 900cc. Assessment: Wero Sadler is a 74 y.o. male with PMH of colon cancer (resected 2008), prostate cancer (s/p androgen deprivation and RT), ASCVD (s/p 3 vessel CABG), PVD s/p carotid endarterectomy, prior CVA, HLD, HTN, OLGA, IDDM and pancreas cancer s/p neoadjuvant chemotherapy with 8 cycles of mFOLFIRINOX and SBRT who is now 3 Days Post-Op s/p exploratory laparotomy, Whipple procedure c/b portal vein tear necessitating inflow and outflow occlusion (full dose heparin given) to allow for primary venorrhaphy, internalized pancreatic duct stent, Billroth II reconstruction. Doing well this AM. His pain control is excellent. NGT clamp trial this AM Wero has h/o IDDM - add n15u Glargine today Trend JPA over the next several days to monitor for biochemical pancreatic leak. OOBTC/PT/ambulate/IS. PROBLEM BASED PLANS: #s/p PV primary venorrhaphy ASA suppository daily Plan to transition to PO ASA once taking in PO #Post-op hypotension/vasoplegia Resolved #Post whipple pain control PCEA per APS Scheduled IV Tylenol Hold on PO narcotics until return of bowel function #Post-whipple bowel function AROBF NGT Clamp trial today - clamp until 11AM, return to suction. 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 Add 15u Glargine today #Post-whipple bile contamination/infection prevention Intraoperative bile cultures with ngtd #Post-operative pulmonary function Incentive spirometry, ambulation #Marginal ulcer and DVT prophylaxis PPI IV BID, avoid NSAIDs Lovenox QHS, SCDs #Tubes/lines/drains NGT to LCWS, HEATHER to bulb suction, krause catheter #Home Medications Carvedilol 25mg daily Flmoax 0.4mg daily HOLD Creon until diet advanced Insulin per DM recs HOLD chlorthalidone, amlodipine, lisinopril HOLD aspirin 81mg Omeprazole -> IV PPI Dispo: Floor Code status: Attempt Cardiopulmonary Resuscitation - Inpatient Signed: Uday Gomes MD [facility] Service Team Pager #[phone] 01/26/24 8:12 AM * Nafisa Wu RN - 01/25/2024 8:04 PM EST OUTCOME EVALUATION NOTE: OUTCOME SUMMARY: Patient is AAOX4 laying in bed on room air. Patient is legally blind with ability to see light vs darkness. Lt NGT in place at 55cm to LCS. Midline incision connected to Prevena wound vac, and RLQ JPdrain observed. Krause draining to gravity with free of kinks, and loops. Epidural line traced, with verification completed by off going RN. Special call light, and LONE LEAD LINEMAN button in place within reach. Fall precautions, and safety measures in place. AM labs drawn PLAN MOVING FORWARD: VS every 4 hours I&Os every 4 hours BG every 4 hours Ambulate in adan TID Motor & Sensory deficit exam every 12 hours CPG GOAL OUTCOME EVALUATION: * Manolo Meza MD - 01/25/2024 10:56 AM EST Acute Pain Medicine Service - Epidural Daily Management VITAL SIGNS: Visit Vitals BP 155/72 (BP Location (NBP): Right arm, Patient Position: Lying) Pulse 78 Temp 36.9 ??C (98.5 ??F) (Oral) Resp 18 Ht 175.3 cm (5' 9) Wt 95.3 kg (210 lb) SpO2 97% BMI 31.01 kg/m?? Body mass index is 31.01 kg/m??. Labs: White Blood Cell Date Value Ref Range Status 01/25/2024 5.72 4.00 - 9.50 x10(3)/mcL Final 06/25/2023 8.0 4.0 - 9.5 x10(3)/mcL Final Hemoglobin Date Value Ref Range Status 01/25/2024 9.5 (L) 13.7 - 16.5 g/dL Final 06/25/2023 12.3 (L) 13.7 - 16.5 g/dL Final Hematocrit Date Value Ref Range Status 01/25/2024 28.4 (L) 40.5 - 48.5 % Final 06/25/2023 37.4 (L) 40.5 - 48.5 % Final Platelet Date Value Ref Range Status 01/25/2024 101 (L) 145 - 357 x10(3)/mcL Final 06/25/2023 188 145 - 357 x10(3)/mcL Final Prothrombin Time Date Value Ref Range Status 01/23/2024 12.7 (H) 9.4 - 12.5 sec Final 07/18/2021 12.3 9.4 - 12.5 sec Final Partial Thromboplastin Time Date Value Ref Range Status 01/23/2024 26 25 - 37 sec Final Comment: The PTT is NOT appropriate for heparin monitoring. Use the Anti-Xa level for heparin monitoring (HEP UFH) or LMWH monitoring (HEP LMW). A PTT less than 37 seconds generally indicates adequate hemostasis. 07/18/2021 30 25 - 37 sec Final Comment: The PTT is NOT appropriate for heparin monitoring. Use the Anti-Xa level for heparin monitoring (HEP UFH) or LMWH monitoring (HEP LMW). A PTT less than 37 seconds generally indicates adequate hemostasis. Operative Procedures: Procedure(s): @WHIPPLE PROCEDURE (WRVU 52.84) PORTAL VEIN REPAIR (WRVU 13.24) @OMENTAL FLAP, INTRA-ABDOMINAL (WRVU 6.54) APS Opioid Administration Hx All administrations since 01/24/2024 are shown below each listed medication. Other Order Route Rate Dose Action Date HYDROmorphone (pf) (10 mcg/mL), BUPivacaine (pf) 0.1% in sodium chloride 0.9% 250 mL epidural Epidural 3 mL/hr 250 mL New Bag 01/25/2024 Epidural Rate/Dose Verify 01/24/2024 Epidural 3 mL/hr 250 mL New Bag 01/24/2024 APMS EPIDURAL ROUNDIN01/25/2024 10:56 AM Average Numeric Rating Pain Score (0-10): 0 Post-Op Day: 2 Epidural Day: 3 Epidural Infusion (solution): HYDROmorphone 10 mcg/mL and BUpivacaine 0.1% Epidural Infusion Rate: 3 mL per hour PCEA Dose: 3 mL every 20 minutes PRN PIEB Dose: 0 mL every 0 minutes Out of Bed: Yes Ambulation: No Able to Use Incentive Spirometry: Yes Escalation of Care: No Tolerating Regular Diet: No Ileus: No Epidural Catheter Removed (Intact unless noted in Comments): No Continue at current rate Attending Physician:: Manolo Meza MD * Uday Gomes MD - 01/25/2024 8:08 AM EST [facility] Inpatient Progress Note Patient Name: Wero Sadler ; Age: 11 1950; 73 y.o. Room/Bed: [facility] Today's Date: 01/25/24 ID: Wero Sadler is a 73 y.o. male with PMH of colon cancer (resected 2008), prostate cancer (s/p androgen deprivation and RT), ASCVD (s/p 3 vessel CABG), PVD s/p carotid endarterectomy, prior CVA, HLD, HTN, OLGA, IDDM and pancreas cancer s/p neoadjuvant chemotherapy with 8 cycles of mFOLFIRINOX and SBRT who is now 2 Days Post-Op s/p exploratory laparotomy, Whipple procedure c/b portal vein tear necessitating inflow and outflow occlusion (full dose heparin given) to allow for primary venorrhaphy, internalized pancreatic duct stent, Billroth II reconstruction. 24 Hour Events: - JPA 12 yesterday PM - OOB walking yesterday - Labs stable this AM - AUOP to krause. HEATHER 105 cc. NGT 1100cc. Subjective: Overall feeling well - Denies abdominal pain. No flatus Hospital Course: 01/22 POD0: To OR for exploratory laparotomy, Whipple procedure c/b portal vein tear necessitating inflow and outflow occlusion (full dose heparin given) to allow for primary venorrhaphy, internalized pancreatic duct stent, Billroth II reconstruction. 2000 mL EBL, 3u PRBC given intra-op. 17 Fr Kd drain posterior to HJ, anterior to PJ. Epidural, krause, NGT, a-line in place. Requiring low- dose pressors, epidural wean, and fluid resuscitation overnight for hypovolemic/vasoplegic shock. 01/23 POD1: HEATHER amylase 12. Started on ASA suppository due to primary PV venorrhaphy. Maintain NGT to LCWS. Awaiting intra-op bile fluid cultures. Weaning pressors. 01/24 POD2: Decrease IVF, JPA pending. OOB. Downgrade to floor. Objective Physical Exam Vitals: Temp: [36.8 ??C (98.2 ??F)-37.2 ??C (99 ??F)] Heart Rate: [71-87] Resp: [16-18] BP: (103-175)/(52-81) Gen: NAD, resting comfortably, pleasant, conversant HEENT: sclerae nonicteric. NGT with thin bilious output, flushed and sumping well on rounds CV : RRR Pulm: breathing comfortably on RA, no respiratory distress Abd: non-distended, soft, essentially nontender throughout. Prevena vac in place holding suction. RJP with thin SS output. : Krause to gravity draining CYU Ext: SCDs in place. Skin: warm, dry Labs: Recent Labs 01/25/24 0028 WBC 5.72 HGB 9.5* HCT 28.4* PLATELET 101* Recent Labs 01/23/24 1706 INR 1.1 Recent Labs 01/25/24 0652 01/25/24 0028 NA -- 135 K 3.8 -- CL -- 105 CO2 -- 25 BUN -- 14 CREATININE -- 0.54* Intra-op bile fluid 01/22: NGTD Drains: HEATHER 105 cc NGT 1100cc. Assessment: Wero Sadler is a 73 y.o. male with PMH of colon cancer (resected 2008), prostate cancer (s/p androgen deprivation and RT), ASCVD (s/p 3 vessel CABG), PVD s/p carotid endarterectomy, prior CVA, HLD, HTN, OLGA, IDDM and pancreas cancer s/p neoadjuvant chemotherapy with 8 cycles of mFOLFIRINOX and SBRT who is now 2 Days Post-Op s/p exploratory laparotomy, Whipple procedure c/b portal vein tear necessitating inflow and outflow occlusion (full dose heparin given) to allow for primary venorrhaphy, internalized pancreatic duct stent, Billroth II reconstruction. Doing well this AM. His pain control is excellent. No ROBF and NGT>1L, maintain NGT to LCWS for today. Wero has h/o IDDM - well controlled in last 24H. Decrease rate of IVF. If Glc elevated, at 15u ofglargine Trend JPA over the next several days to monitor for biochemical pancreatic leak. OOBTC/PT/ambulate/IS. Downgrade to floor. 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 #Post-whipple bile contamination/infection prevention Intraoperative bile cultures with ngtd #Post-operative pulmonary function Incentive spirometry, ambulation #Marginal ulcer and DVT prophylaxis PPI IV BID, avoid NSAIDs Lovenox QHS, SCDs #Tubes/lines/drains NGT to LCWS, HEATHER to bulb suction, krause catheter #Home Medications Carvedilol 25mg daily Flmoax 0.4mg daily HOLD Creon until diet advanced Insulin per DM recs HOLD chlorthalidone, amlodipine, lisinopril HOLD aspirin 81mg Omeprazole -> IV PPI Dispo: Floor Code status: Attempt Cardiopulmonary Resuscitation - Inpatient Signed: Uday Gomes MD Hepato Pancreato Biliary Surgery Service Team Pager #[phone] 01/25/24 8:08 AM * Abby Cannon, PT - 01/24/2024 3:35 PM EST Physical Therapy Evaluation Patient profile: Wero Sadler is a 73 y.o. male admitted on 01/23/[address] Tor Balbuena MD with PMH of legal blindness, colon cancer (resected 2008), prostate cancer (s/p androgen deprivation and RT), ASCVD (s/p 3 vessel CABG), PVD s/p carotid endarterectomy, prior CVA, HLD, HTN, OLGA, IDDM and pancreas cancer s/p neoadjuvant chemotherapy with 8 cycles of mFOLFIRINOX and SBRT who is now s/p exploratory laparotomy for Whipple procedure 01/22. Patient with the following active problems: Past Medical History: Diagnosis Date Blind left eye glass eye since childhood acccident Blind right eye 11/2019 legally blind since stroke. can not read. can see shadows. No vision in left eye since child saavedra accident. Cancer prostate, colorectal Claudication Colon adenocarcinoma 2008 recieved chemo in [place] Coronary artery disease Coronary artery dissection CPAP (continuous positive airway pressure) dependence CPAP Diabetes treated with medication Diabetes mellitus 07/22/2019 Gastroesophageal reflux High blood pressure Hyperlipidemia Obstructive sleep apnea Status post chemotherapy 2008 colon cancer Stroke 11-24-19 Past Surgical History: Procedure Laterality Date CARDIAC SURGERY 12/04/2019 triple bypass CAROTID ENDARTERECTOMY Left 12/04/19, Right 6 months prior CAROTID-SUBCLAVIAN BYPASS GRAFT Bilateral 2017, 2018 FEMORAL-TIBIAL BYPASS GRAFT Left 12/2017 JOINT REPLACEMENT Left hip, left knee, right knee x 2 PRG FLUOROSCOPY EXAM UP TO 1 HR PHY OR OTH HLTH CARE PROV N/A 07/05/2023 FLUOROSCOPY (WRVU 0.3) performed by Tor Balbuena MD at [facility] OSC PRO ARTHROPLASTY ACETABULAR/PROX FEM PROSTC AGRFT/ALGRFT Left 10/10/2020 TOTAL HIP ARTHROPLASTY - POSTERIOR (WRVU 20.72) performed by Ismael Wu MD at [facility] MAIN OR PRO ARTHROPLASTY ACETABULAR/PROX FEM PROSTC AGRFT/ALGRFT Right 11/17/2021 TOTAL HIP ARTHROPLASTY - POSTERIOR (WRVU 20.72) performed by Ismael Wu MD at [facility] MAIN OR PRO ENDOSCOPIC US EXAM, ESOPH N/A 07/02/2023 UPPER EUS- ENDOSCOPIC ULTRASOUND (WRVU 3.47) performed by Pako Lopez MD at [facility] ENDOSCOPY PRO ERCP, W/REMOVAL STONE, TARYN/PANCR DUCTS 07/02/2023 ERCP W/REMOVAL CALCULI/DEBRIS FROM BILARY/PANCREATIC DUCT(S) (WRVU 6.63) performed by Pako Lopez MD at [facility] ENDOSCOPY PRO ERCP,DIAGNOSTIC N/A 07/02/2023 ERCP (WRVU 5.85) performed by Pako Lopez MD at [facility] ENDOSCOPY PRO EXPLORATION NOT FOLLOWED BY SURG NECK ARTERY Right 07/14/2021 @EXPLORATION NOT FOLLOWED BY SURGICAL REPAIR, ARTERY; NECK (CAROTID OR SUBCLAVIAN) (WRVU 9.19) performed by Basim Barr MD at [facility] MAIN OR PRO INSERT TUNNELED CV CATH W SUBQ PORT, AGE 5 YRS OR OLDER N/A 07/05/2023 MARIO\AMELIA.CATHETER,TUNNELED, WITH SQ PORT OR PUMP OVER 5YR (WRVU 5.79) performed by Maggi Balbuena MD at [facility] OSC PRO LAP, DIAGNOSTIC ABDOMEN N/A 07/05/2023 LAPAROSCOPY, DIAGNOSTIC, ABDOMEN (WRVU 5.14) performed by Tor Balbuena MD at [facility] OSC PRO LASER VAPORIZATION SURGERY PROSTATE, COMPLETE Midline 02/02/2021 CYSTO, LASER TURP (WRVU 12.15) performed by Cayetano Engle MD at [facility] MAIN OR PRO PLACE TRANSCATHETER STENT, CCA W EMBOLIC PROECT Right 07/14/2021 @TRANSCATH INTRAVASCULAR STENT,CAROTID,PERC,W\EMBOLIC PROT. (WRVU 18) performed by Basim Barr MD at [facility] MAIN OR Active Non-Hospital Problems Diagnosis Malignant neoplasm of head of pancreas Bradycardia Bladder dysfunction/retention with risk of stretch injury s/p Right JIMI (Posterior), Dr. 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 Wu, 10/10/20 ASCVD (arteriosclerotic cardiovascular disease) History of carotid endarterectomy Colorectal cancer Diabetes mellitus Hypercholesterolemia Hypertension -Labile blood pressurses Social History: lives alone in [place], [place]; has friends that grocery shop for him and prepare meals; also receives [employer]; uses [employer] for transportation as needed; patient reports having a neighbor with whom he has a glass of wine every evening Home set-up: 2-level home with his bedroom upstairs Bathroom Set-up: 2 bathrooms upstairs and 1 downstairs Stairs: 1 step to enter home; 5, then a landing, then 8 more steps with bilateral railings to 2nd floor Baseline Mobility: independent without device in home; uses a cane for the visually impaired for community ambulation Equipment at home: cane for the visually impaired; grab bars in shower; high toilet Fall history: no Precautions/Special Considerations: fall risk; abdominal incision; legally blind (prosthetic L eye and impaired vision in R eye from CVA) Lines: PIV's, NGT to LCWS, eduar, Prevena wound vac from abdominal incision, R abdominal HEATHER drain, PCEA Activity Orders: ambulate 3x/day Diet: NPO Mobility and Positioning Recommendations: Pt. to utilize CGA and rolling walker for ambulation and transfers with nursing. Please encourage up to chair daily. Pt encouraged to ambulate frequently with staff, getting into the bathroom for toileting and walking out in the adan >/= 3 times daily as able. Subjective: ???Sure. I'll give it a go!?? - when asked if he felt like he could attempt walking out in the hallway after having just gotten up to chair and settled in Objective: Pt seen for evaluation today. Pain: no complaints; controlled with PCEA Vital Signs: At Rest With Activity SpO2 (RA) 91% 93% BP (MAP) 119/58 mmHg 126/62 mmHg HR 83 bpm 80's bpm Mental Status: alert, oriented to person, place, and time; following all commands; pleasant and conversant Vision: legally blind R eye and prosthetic L eye since childhood accident; able to see light, shadows, general outline of people Skin: abdominal incision with Prevena wound vac; TKA incision scars on both knees; sternal incisionscar Musculoskeletal: ROM: WFL Strength: WFL Sensation: grossly intact light touch Bed Mobility: Supine to Sit: not assessed; was up in chair Sit to Supine: not assessed; stayed up in chair Transfers: Sit to Stand: minimal assist from armchair to walker support; cues for hand placement Stand to Sit: CGA with verbal cues for hand placement on armrests prior to sit Gait: Distance: 120 feet Device used: rolling walker Level of assist: minimal assist for walker guidance due to blindness Gait mechanics: short step length, slow gait speed Stairs: not assessed Balance: Sitting Static: good Sitting Dynamic: fair Standing Static: good with walker support Standing Dynamic / Gait: fair to good using rolling walker for ambulation Education: Patient has been educated on Transfers, Safety , and Role of therapy and verbalizes understanding. Patient status, treatment, and mobility recommendations discussed with nursing. Assessment: Wero Sadler was seen today for physical therapy evaluation. Patient with pancreaticcancer now s/p Whipple procedure presents with impairments in the following: vision, functional mobility, standing balance, and gait. Mauri is mobilizing with a little assist, mainly due to visual impairment, and was tolerant of a fair distance ambulation in the hallway. He lives alone and will haveto manage a flight of stairs within his home, but he has very supportive friends and neighbors who assisted him at baseline. Anticipate that he will be able to return home with home services and support from friends as he had prior to admit, as long as he continues to improve from a medical standpoi nt. He should be assisted to ambulate with nursing staff/mobility tech 3x/day over the weekend and PT will follow up with him Saturday to assess stair management. Inpatient Physical Therapy Plan: 2-4 times/wk for balance training, bed mobility training, gait training, patient/family education, stair training, strengthening, and transfer training Discharge Recommendations: Based on current findings- home with home health Consult Recommendations: No other consults recommended at this time. Equipment needs: to be determined Goals: To be achieved by 02/01/24: Pt. to demonstrate knowledge of safety limitations and precautions and will appropriately request assistance for functional activities and to mobilize. Pt. to demonstrate understanding of appropriate exercises. Pt. to perform bed mobility independently. Pt. to perform sit to stand transfers with modified independence using a cane. Pt. to ambulate 150 feet with modified independence using a straight cane. Pt. to ambulate up/down 13 step/stairs using two rails with modified independence. Pt will tolerate progression of mobility with stable vital signs. Patient/family understand and agree with plan as stated above. PT Evaluation Code Rationale: Diagnosis & Pertinent Co-Morbidities, personal factors, and present illness affecting Plan of Care: (see above); Additional personal factors or co- morbidities that impact plan: Total # of Factors: 0 1-2 3+ x Examination of body system impairments, functional limitations and behaviors, and/or participation restrictions. Addressing 1-2 elements Addressing 3 + elements Addressing 4 + elements x Clinical presentation: See assessment above. Stable/Uncomplicated Evolving/Fluctuating Symptoms Unstable/Unpredictable x Clinical decision making of moderate complexity based on pt's functional performance as outlined inthis evaluation. Time IN / OUT: 3:00-3:35 Total Time: 35 minutes; evaluation ABBY CANNON, PT Pager: [phone] Physical Therapy Inpatient Rehabilitation Department * Haroon Presley PA - 01/24/2024 10:50 AM EST Hepato Pancreato Biliary Surgery Inpatient Progress Note Patient Name: Wero Sadler ; Age: 11 1950; 73 y.o. Room/Bed: [facility]PLACED BY [facility] Today's Date: 01/24/24 ID: Wero Sadler is a 73 y.o. male with PMH of colon cancer (resected 2008), prostate cancer (s/p androgen deprivation and RT), ASCVD (s/p 3 vessel CABG), PVD s/p carotid endarterectomy, prior CVA, HLD, HTN, OLGA, IDDM and pancreas cancer s/p neoadjuvant chemotherapy with 8 cycles of mFOLFIRINOX and SBRT who is now 1 Day Post-Op s/p exploratory laparotomy, Whipple procedure c/b portal vein tearnecessitating inflow and outflow occlusion (full dose heparin given) to allow for primary venorrhaphy, internalized pancreatic duct stent, Billroth II reconstruction. 24 Hour Events: - To OR for exploratory laparotomy, Whipple procedure c/b portal vein tear necessitating inflow andoutflow occlusion (full dose heparin given) to allow for primary venorrhaphy, internalized pancreatic duct stent, Billroth II reconstruction. 2000 mL EBL, 3u PRBC given intra-op. 17 Fr Kd drain posterior to HJ, anterior to PJ. Epidural, krause, NGT, a-line in place. - Requiring zahraa postop up to 45 mcg/min postop, @ 10 this AM - Afebrile, SBP appropriate, DBP 40-50s driving MAP down, satting well on RA. Normal HR. - 0/0 PCEA doses overnight - AUOP to krause. HEATHER 355 cc. NGT 1125cc. Subjective: Overall feeling well - biggest complaint is a sore throat this morning. Denies abdominal pain. 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 2000 mL EBL, 3u PRBC given intra-op. 17 Fr Kd drain posterior to HJ, anterior to PJ. Epidural, krause, NGT, a-line in place. Requiring low- dose pressors, epidural wean, and fluid resuscitation overnight for hypovolemic/vasoplegic shock. 01/23 POD1: HEATHER amylase pending. Started on ASA suppository due to primary PV venorrhaphy. Maintain NGT to LCWS. Awaiting intra-op bile fluid cultures. Weaning pressors. Objective Physical Exam Vitals: Temp: [36.5 ??C (97.7 ??F)-37.7 ??C (99.9 ??F)] Heart Rate: [62-85] Resp: [10-25] BP: (93-127)/(46-67) - BP 120s/150s with MAP 70s on rounds, zahraa @ 10 Gen: NAD, resting comfortably, pleasant, conversant HEENT: sclerae nonicteric. NGT with thin bilious output, flushed and sumping well on rounds CV : RRR Pulm: breathing comfortably on RA, no respiratory distress Abd: non-distended, soft, essentially nontender throughout. Prevena vac in place holding suction. RJP with thin SS output. : Krause to gravity draining CYU Ext: SCDs in place. Skin: warm, dry Labs: Hgb 10.5 (c/w chronic anemia - baseline high 10 - low 11s) LFTs downtrending, T bili 1.5 Serum amylase amylase pending Intra-op bile fluid 01/22: No microorganisms seen on gram stain Drains: HEATHER 355 cc NGT 1125cc. Assessment: Wero Sadler is a 73 y.o. male with PMH of colon cancer (resected 2008), prostate cancer (s/p androgen deprivation and RT), ASCVD (s/p 3 vessel CABG), PVD s/p carotid endarterectomy, prior CVA, HLD, HTN, OLGA, IDDM and pancreas cancer s/p neoadjuvant chemotherapy with 8 cycles of mFOLFIRINOX and SBRT who is now 1 Day Post-Op s/p exploratory laparotomy, Whipple procedure c/b portal vein tear necessitating inflow and outflow occlusion (full dose heparin given) to allow for primary venorrhaphy, internalized pancreatic duct stent, Billroth II reconstruction. Wero's surgery yesterday was complicated by PV tear resulting in large volume blood loss (2L) necessitating PV occlusion for primary anastomosis (he received full dose heparin intra-op). He continues on low dose pressors this morning though this is weaning - pressor need is driven by MAP <65 due to low diastolic blood pressures, with SBP largely normal. Will titrate pressors for goal SBP > 100 which will hopefully allow us to wean off the zahraa. There is no evidence of active bleeding - benign abdominal exam with serosanguinous drain output, stable Hgb since 3u PRBC intra-op, weaning pressors and normal heart rate. Given primary venorrhaphy, will start rectal ASA today with plan to transition to PO aspirin once he is tolerating PO. Otherwise he is doing well. His pain control is excellent despite the decreased rate of his epidural. Given B2 reconstruction, will maintain NGT to LCWS for today. Wero has h/o IDDM - will consult the Diabetes Management team today to assist with his insulin regimen. Of note, Wero was hypoglycemic this morning into 50- 60s (asymptomatic) for which he received juice x 2, ISS changed from resistant to moderate, and mIVF were changed from LR to D5 1/2NS. Trend JPA over the next several days to monitor for biochemical pancreatic leak. F/u final BD culture data and if positive plan for 7-day course of empiric zosyn. OOBTC/PT/ambulate/IS. PROBLEM BASED PLANS: #s/p PV primary venorrhaphy ASA suppository daily Plan to transition to PO ASA once taking in PO #Post-op hypotension/vasoplegia Low dose neosyn to maintain MAP>65 - changed to goal SBP > 100 this morning due to low diastolics. Wean as able #Post whipple pain control PCEA per APS Scheduled IV Tylenol Hold on PO narcotics until return of bowel function #Post-whipple bowel function AROBF NGT to LCWS #Post-whipple anastomotic monitoring HEATHER amylase levels to be drawn day 1-5 POD1 pending #Nutrition Sips and Chips (Give Meds) #Monitoring for Post-pancreatectomy acquired diabetes Insulin dependent diabetic preop, awaiting endocrine recs Hypoglycemic this morning - changed from resistant SSI to moderate SSI, changed mIVF from LR to D5 1/2NS #Post-whipple bile contamination/infection prevention Intraoperative bile cultures with no growth on gram stain - f/u on final culture data and if positive plan for empiric zosyn x 7days #Post-operative pulmonary function Incentive spirometry, ambulation #Marginal ulcer and DVT prophylaxis PPI IV BID, avoid NSAIDs Lovenox QHS, SCDs #Tubes/lines/drains NGT to LCWS, HEATHER to bulb suction, krause catheter #Home Medications Carvedilol 25mg daily Flmoax 0.4mg daily HOLD Creon until diet advanced Insulin per DM recs HOLD chlorthalidone, amlodipine, lisinopril HOLD aspirin 81mg Omeprazole -> IV PPI Dispo: Stepdown Code status: Attempt Cardiopulmonary Resuscitation - Inpatient Signed: CASA Wharton Hepato Pancreato Biliary Surgery Service Team Pager #[phone] 01/24/24 10:51 AM * Manolo Meza MD - 01/24/2024 10:00 AM EST Acute Pain Medicine Service - Epidural Daily Management VITAL SIGNS: Visit Vitals BP 103/52 Pulse 79 Temp 36.9 ??C (98.5 ??F) (Oral) Resp 16 Ht 175.3 cm (5' 9) Wt 95.3 kg (210 lb) SpO2 94% BMI 31.01 kg/m?? Body mass index is 31.01 kg/m??. Labs: White Blood Cell Date Value Ref Range Status 01/24/2024 7.86 4.00 - 9.50 x10(3)/mcL Final 06/25/2023 8.0 4.0 - 9.5 x10(3)/mcL Final Hemoglobin Date Value Ref Range Status 01/24/2024 10.5 (L) 13.7 - 16.5 g/dL Final 06/25/2023 12.3 (L) 13.7 - 16.5 g/dL Final Hematocrit Date Value Ref Range Status 01/24/2024 30.9 (L) 40.5 - 48.5 % Final 06/25/2023 37.4 (L) 40.5 - 48.5 % Final Platelet Date Value Ref Range Status 01/24/2024 147 145 - 357 x10(3)/mcL Final 06/25/2023 188 145 - 357 x10(3)/mcL Final Prothrombin Time Date Value Ref Range Status 01/23/2024 12.7 (H) 9.4 - 12.5 sec Final 07/18/2021 12.3 9.4 - 12.5 sec Final Partial Thromboplastin Time Date Value Ref Range Status 01/23/2024 26 25 - 37 sec Final Comment: The PTT is NOT appropriate for heparin monitoring. Use the Anti-Xa level for heparin monitoring (HEP UFH) or LMWH monitoring (HEP LMW). A PTT less than 37 seconds generally indicates adequate hemostasis. 07/18/2021 30 25 - 37 sec Final Comment: The PTT is NOT appropriate for heparin monitoring. Use the Anti-Xa level for heparin monitoring (HEP UFH) or LMWH monitoring (HEP LMW). A PTT less than 37 seconds generally indicates adequate hemostasis. Operative Procedures: Procedure(s): @WHIPPLE PROCEDURE (WRVU 52.84) PORTAL VEIN REPAIR (WRVU 13.24) @OMENTAL FLAP, INTRA-ABDOMINAL (WRVU 6.54) APS Opioid Administration Hx All administrations since 01/23/2024 are shown below each listed medication. Other Order Route Rate Dose Action Date HYDROmorphone (pf) (10 mcg/mL), BUPivacaine (pf) 0.1% in sodium chloride 0.9% 250 mL epidural Epidural Rate/Dose Verify 01/24/2024 Epidural 3 mL/hr 250 mL New Bag 01/24/2024 Epidural 250 mL Continued Bag 01/23/2024 HYDROmorphone (pf) (10 mcg/mL), BUPivacaine (pf) 0.1% in sodium chloride 0.9% 250 mL epidural Epidural 3 mL/hr 3 mL/hr Restarted 01/23/2024 Epidural 3 mL/hr 3 mL/hr Rate/Dose Change 01/23/2024 Epidural 4 mL/hr 4 mL/hr Rate/Dose Change 01/23/2024 Epidural 6 mL/hr 6 mL/hr New Bag 01/23/2024 HYDROmorphone (PF) (Dilaudid) injection 0.2 mg Intravenous 0.2 mg Given 01/23/2024 fentaNYL (PF) (50 mcg/mL) injection 50 mcg Intravenous 25 mcg Given 01/23/2024 Intravenous 25 mcg Given 01/23/2024 Intravenous 50 mcg Given 01/23/2024 APMS EPIDURAL ROUNDIN01/24/2024 10:00 AM Average Numeric Rating Pain Score (0-10): 0 Post-Op Day: 1 Epidural Day: 2 Epidural Infusion (solution): HYDROmorphone 10 mcg/mL and BUpivacaine 0.1% Epidural Infusion Rate: 3 mL per hour PCEA Dose: 3 mL every 20 minutes PRN PIEB Dose: 0 mL every 0 minutes Out of Bed: No Ambulation: No Able to Use Incentive Spirometry: Yes Escalation of Care: No Tolerating Regular Diet: No Ileus: No Epidural Catheter Removed (Intact unless noted in Comments): No Wero is doing very well this morning. He is wide awake in bed and offers no complaints. Wero denies any pain and has not used his PCEA postoperatively. He is able to bend his knees and ankles without issue and denies any numbness, tingling, itching, or nausea. Wero has an NG tube in place and denies ROBF. He was on pressor support postoperatively, which was paused at 0813 this morning. The epidural insertion site is free from signs of infection and the dressing remains occlusive. Plan: We made no changes to the epidural regimen on rounds and encouraged Wero to utilize his PCEA function, as needed, to facilitate activity when the he gets out of bed for the first time. I, NACHO OREILLY, RN, have performed the documentation for this encounter in the presence of andacting as a scribe for Dr. Manolo Meza. [facility] Nurse: Nacho Oreilly RN Resident:: Jace Lyons MD Fellow:: Kolton Morejon DO Attending Physician:: Manolo Meza MD I performed the above scribed service and agree with the accuracy of the note. Manolo Meza MD * Dione Sharma RN - 01/24/2024 6:41 AM EST Pt states he has a advance directive and his DPOA is his daughter Yessi. Yessi is not currently listed in his chart. Unable to locate advance directive in chart. Social work consulted. * Amarilys Brown RN - 01/24/2024 6:03 AM EST Images from the original note were not included. Port accessed. Uneventful. * Sulema Collado MD - 01/23/2024 9:20 PM EST Post-Operative Check Wero Sadler is a 73 y.o. male s/p Procedure(s): @WHIPPLE PROCEDURE (WRVU 52.84) PORTAL VEIN REPAIR (WRVU 13.24) @OMENTAL FLAP, INTRA-ABDOMINAL (WRVU 6.54) S: Pain controlled with epidural. No nausea or vomiting, NGT to LCWS. No chest pain or SOB. Krause in. Required 2u pRBCs in the OR and phenylephrine post-op, in stepdown unit. O: Temp: [36.9 ??C (98.4 ??F)-37.2 ??C (99 ??F)] Heart Rate: [68-74] Resp: [10-25] BP: (93-125)/(54-65) SpO2: [87 %-100 %] Heart Rate from SpO2: [64 bpm-74 bpm] I/O last 3 completed shifts: In: 55064.3 [I.V.:9028.8; Blood:987; Other:1035.5] Out: 3759 [Urine:1304; Drains:205; Other:250; Blood:2000] I/O this shift: In: 142.6 [I.V.:112.6] Out: 280 [Urine:60; Drains:20; Other:200] Recent Results (from the past 24 hour(s)) POC, GLUCOSE Result Value Ref Range Glucometer, POC 197 65 - 199 mg/dL Blood Gas, Arterial POC Result Value Ref Range pH, Arterial 7.42 7.35 - 7.45 PH Corrected, Arterial 7.45 7.35 - 7.45 PCO2, Arterial 36 35 - 45 mmHg PCO2 Corrected, Arterial 34 (L) 35 - 45 mmHg PO2, Arterial 294 (H) 85 - 104 mmHg PO2 Corrected, Arterial 286.3 (H) 85 - 104 mmHg Bicarbonate, Arterial 23.0 20.0 - 26.0 mmol/L Base Excess, Arterial -1.4 -3.0 - 3.0 mmol/L Hemoglobin, Arterial 10.6 (L) 13.7 - 16.5 g/dL Oxyhemoglobin, Arterial 96.2 94.0 - 97.0 % Carboxyhemoglobin, Arterial 0.2 % Methemoglobin, Arterial 0.2 <=1.5 % Sodium, Arterial 135 135 - 145 mmol/L Potassium, Arterial 3.4 (L) 3.5 - 5.0 mmol/L Chloride, Arterial 103 98 - 107 mmol/L Lactate, Arterial 1.2 0.5 - 2.2 mmol/L Fraction of Inspired Oxygen 63 % Flow Rate 0.7 L/min PF Ratio 467 Ratio Patient Temperature 35.4 C IONIZED CALCIUM, ARTERIAL 1.13 (L) 1.15 - 1.33 mmol/L Glucose, Arterial 186 65 - 199 mg/dL Type and screen ([facility]) Result Value Ref Range ABORH Type O POSITIVE PATIENT HISTORY Found Expires at 2359 on: 2024 ANTIBODY SCREEN AUTOMATED Negative T&S only valid at [facility] ABORH RECHECK (PATIENT HISTORY FOUND) Result Value Ref Range ABORH Recheck Progress Complete POC, GLUCOSE Result Value Ref Range Glucometer, POC 194 65 - 199 mg/dL Blood Gas, Arterial POC Result Value Ref Range pH, Arterial 7.43 7.35 - 7.45 PH Corrected, Arterial 7.45 7.35 - 7.45 PCO2, Arterial 41 35 - 45 mmHg PCO2 Corrected, Arterial 39 35 - 45 mmHg PO2, Arterial 233 (H) 85 - 104 mmHg PO2 Corrected, Arterial 226.0 (H) 85 - 104 mmHg Bicarbonate, Arterial 26.6 (H) 20.0 - 26.0 mmol/L Base Excess, Arterial 2.3 -3.0 - 3.0 mmol/L Hemoglobin, Arterial 11.6 (L) 13.7 - 16.5 g/dL Oxyhemoglobin, Arterial 96.1 94.0 - 97.0 % Carboxyhemoglobin, Arterial 0.2 % Methemoglobin, Arterial 0.2 <=1.5 % Sodium, Arterial 136 135 - 145 mmol/L Potassium, Arterial 3.4 (L) 3.5 - 5.0 mmol/L Chloride, Arterial 103 98 - 107 mmol/L Lactate, Arterial 1.3 0.5 - 2.2 mmol/L Fraction of Inspired Oxygen 50 % Flow Rate 0.6 L/min PF Ratio 466 Ratio Patient Temperature 35.6 C IONIZED CALCIUM, ARTERIAL 1.08 (L) 1.15 - 1.33 mmol/L Glucose, Arterial 193 65 - 199 mg/dL Tissue Culture, Aerobic Only Specimen: Bile Duct; Tissue Result Value Ref Range Gram Stain No neutrophils seen Gram Stain No microorganisms seen POC, GLUCOSE Result Value Ref Range Glucometer, POC 156 65 - 199 mg/dL Blood Gas, Arterial POC Result Value Ref Range pH, Arterial 7.39 7.35 - 7.45 PH Corrected, Arterial 7.40 7.35 - 7.45 PCO2, Arterial 41 35 - 45 mmHg PCO2 Corrected, Arterial 40 35 - 45 mmHg PO2, Arterial 221 (H) 85 - 104 mmHg PO2 Corrected, Arterial 217.3 (H) 85 - 104 mmHg Bicarbonate, Arterial 24.3 20.0 - 26.0 mmol/L Base Excess, Arterial -0.7 -3.0 - 3.0 mmol/L Hemoglobin, Arterial 11.0 (L) 13.7 - 16.5 g/dL Oxyhemoglobin, Arterial 95.9 94.0 - 97.0 % Carboxyhemoglobin, Arterial 0.3 % Methemoglobin, Arterial 0.3 <=1.5 % Sodium, Arterial 138 135 - 145 mmol/L Potassium, Arterial 3.4 (L) 3.5 - 5.0 mmol/L Chloride, Arterial 104 98 - 107 mmol/L Lactate, Arterial 1.4 0.5 - 2.2 mmol/L Fraction of Inspired Oxygen 50 % Flow Rate 0.7 L/min PF Ratio 442 Ratio Patient Temperature 36.3 C IONIZED CALCIUM, ARTERIAL 1.16 1.15 - 1.33 mmol/L Glucose, Arterial 154 65 - 199 mg/dL Prepare RBC Result Value Ref Range Status Information Issued Product Identification RBC Unit Number [id number] Product Code [id number] Unit Blood Type OPOS Specimen Expiration Date [id number] [address] 350 Issue Date / Time [id number] Status Information Issued Product Identification RBC Unit Number [id number] Product Code [id number] Unit Blood Type OPOS Specimen Expiration Date [id number] [address] 350 Issue Date / Time [id number] Blood Gas, Arterial POC Result Value Ref Range pH, Arterial 7.33 (L) 7.35 - 7.45 PH Corrected, Arterial 7.33 (L) 7.35 - 7.45 PCO2, Arterial 39 35 - 45 mmHg PCO2 Corrected, Arterial 39 35 - 45 mmHg PO2, Arterial 195 (H) 85 - 104 mmHg PO2 Corrected, Arterial 194.9 (H) 85 - 104 mmHg Bicarbonate, Arterial 20.3 20.0 - 26.0 mmol/L Base Excess, Arterial -5.6 (L) -3.0 - 3.0 mmol/L Hemoglobin, Arterial 9.9 (L) 13.7 - 16.5 g/dL Oxyhemoglobin, Arterial 96.9 94.0 - 97.0 % Carboxyhemoglobin, Arterial 0.2 % Methemoglobin, Arterial 0.3 <=1.5 % Sodium, Arterial 134 (L) 135 - 145 mmol/L Potassium, Arterial 4.0 3.5 - 5.0 mmol/L Chloride, Arterial 106 98 - 107 mmol/L Lactate, Arterial 1.8 0.5 - 2.2 mmol/L Fraction of Inspired Oxygen 49 % Flow Rate 0.7 L/min PF Ratio 398 Ratio Patient Temperature 36.9 C IONIZED CALCIUM, ARTERIAL 1.10 (L) 1.15 - 1.33 mmol/L Glucose, Arterial 196 65 - 199 mg/dL Blood Gas, Arterial POC Result Value Ref Range pH, Arterial 7.38 7.35 - 7.45 PCO2, Arterial 41 35 - 45 mmHg PO2, Arterial 215 (H) 85 - 104 mmHg Bicarbonate, Arterial 23.7 20.0 - 26.0 mmol/L Base Excess, Arterial -1.4 -3.0 - 3.0 mmol/L Hemoglobin, Arterial 9.2 (L) 13.7 - 16.5 g/dL Oxyhemoglobin, Arterial 96.6 94.0 - 97.0 % Carboxyhemoglobin, Arterial 0.3 % Methemoglobin, Arterial 0.3 <=1.5 % Sodium, Arterial 134 (L) 135 - 145 mmol/L Potassium, Arterial 4.0 3.5 - 5.0 mmol/L Chloride, Arterial 105 98 - 107 mmol/L Lactate, Arterial 1.5 0.5 - 2.2 mmol/L IONIZED CALCIUM, ARTERIAL 1.13 (L) 1.15 - 1.33 mmol/L Glucose, Arterial 164 65 - 199 mg/dL POC, GLUCOSE Result Value Ref Range Glucometer, POC 162 65 - 199 mg/dL Hemoglobin A1c Result Value Ref Range Hemoglobin A1c 7.0 (H) 4.3 - 5.6 % Estimated Average Glucose CBC (with Diff) Result Value Ref Range White Blood Cell 5.19 4.00 - 9.50 x10(3)/mcL Red Blood Cell 3.50 (L) 4.58 - 5.54 x10(6)/mcL Hemoglobin 10.8 (L) 13.7 - 16.5 g/dL Hematocrit 31.9 (L) 40.5 - 48.5 % Mean Cell Volume 91.1 82.9 - 93.1 fL Mean Cell Hemoglobin 30.9 27.5 - 32.1 pg Mean Cell Hemoglobin Concentration 33.9 32.0 - 35.7 g/dL Platelet 116 (L) 145 - 357 x10(3)/mcL Mean Platelet Volume 9.9 7.6 - 12.9 fL RDW Standard Deviation 49.3 (H) 36.0 - 45.0 fL RDW coefficient of variation 14.9 (H) 11.4 - 13.8 % NRBC% auto 0.0 % NRBC Absolute <0.01 <0.01 x10(3)/mcL Neutrophil % 81.3 % Neutrophil Absolute (ANC) - Automated 4.22 1.70 - 6.10 x10(3)/mcL Lymph % 9.4 % Lymph Absolute 0.49 (L) 0.90 - 3.20 x10(3)/mcL Monocyte % 8.5 % Monocyte Absolute 0.44 0.30 - 0.90 x10(3)/mcL Eos % 0.2 % Eos Absolute <0.04 0.00 - 0.40 x10(3)/mcL Basophil % 0.4 % Baso Absolute <0.04 0.00 - 0.10 x10(3)/mcL Immature Gran % 0.2 % Immature Gran Absolute <0.04 0.00 - 0.04 x10(3)/mcL Comprehensive metabolic panel Result Value Ref Range Glucose 158 65 - 199 mg/dL Blood Urea Nitrogen 16 10 - 20 mg/dL Creatinine 0.62 (L) 0.80 - 1.50 mg/dL Sodium 139 135 - 145 mMol/L Potassium 4.4 3.5 - 5.0 mMol/L Chloride 105 98 - 107 mMol/L Carbon Dioxide 22 22 - 31 mMol/L Anion Gap 12 5 - 15 mMol/L Calcium 7.9 (L) 8.5 - 10.5 mg/dL Protein, Total 4.5 (L) 6.1 - 8.0 g/dL Albumin 3.0 (L) 3.2 - 5.2 g/dL Aspartate Aminotransferase 232 (H) <=39 unit/L Alanine Aminotransferase 167 (H) 0 - 55 unit/L Alkaline Phosphatase 188 (H) 40 - 130 unit/L Bilirubin, Total 1.5 (H) <=1.3 mg/dL Est Glomerular Filtration Rate - Male 100 mL/min/1.73 m?? APTT Result Value Ref Range Partial Thromboplastin Time 26 25 - 37 sec Fibrinogen Result Value Ref Range Fibrinogen 242 200 - 393 mg/dL Magnesium Result Value Ref Range Magnesium 0.80 0.69 - 1.07 mMol/L Phosphorus Result Value Ref Range Phosphorus 3.9 2.5 - 4.5 mg/dL Prothrombin Time Result Value Ref Range Prothrombin Time 12.7 (H) 9.4 - 12.5 sec International Normalization Ratio 1.1 <=4.9 Prepare RBC Result Value Ref Range Status Information Issued Product Identification RBC Unit Number [id number] Product Code [id number] Unit Blood Type OPOS Specimen Expiration Date [address] 287 Issue Date / Time Status Information Returned Product Identification RBC Unit Number [id number] Product Code [id number] Unit Blood Type OPOS Specimen Expiration Date [id number] [address] 350 Issue Date / Time POC, GLUCOSE Result Value Ref Range Glucometer, POC 131 65 - 199 mg/dL Physical Exam Gen: AOx3, NAD, resting comfortably CVS: Normal HR Resp: Breathing comfortably on 2 L NC Abd: Soft, non tender, nondistended, Prevena in place to suction. HEATHER to suction with SS output : Krause in place, urine in bag Ext: SCDs in place AP Wero Sadler is a 73 y.o. male s/p Whipple with retrocolic retrogastric B- 2 reconstruction and portal venorraphy repair currently in stable condition. - Sips and Chips (Give Meds) - Pain well controlled on epidural - Vitals stable on 45 phenylephrine - UOP 0.64 ml/kg/hr Sulema Collado MD 01/23/2024 * Floridalma Davis RN - 01/23/2024 6:19 PM EST 1651- Pt arrived to PACU 10 from OR, attached to monitors and alarms set appropriate for pt. Midline incision c/d/I, prevena in place. Right LQ HEATHER in place continued on bulb suction draining serosanginious fluid. Left NGT continue on LCWS. Krause in place draining clear yellow urine. Epidural in place. 1899- Pt has met d/c criteria from the PACU 1929- Report given to Kavon GRIFFITHS in ISCU documented in this encounter H&P Notes * Tor Balbuena MD - 01/23/2024 3:49 AM EST H&P 24hr interval update/Pre-operative note Please see Dr. Balbuena's note from clinic on 12/17/23 for further information. ID: Wero Sadler is a 73 y.o. male with a hx of pancreatic head adenocarcinoma who presents to [facility] for whipple S: Wero Sadler endorses no recent change in health. Denies any fever, chills, cough, congestion, change in bowel habits. Prior to arrival today, Wero Sadler was in a normal state of health. O: Physical Exam: Patient Vitals for the past 24 hrs: Temp Pulse Resp BP SpO2 O2 Device 01/23/24 0626 36.5 ??C (97.7 ??F) 69 20 160/69 97 % RA Gen: NAD, AOx3 HEENT: NC/AT CVS: RRR Pulm: Comfortable on RA Abd: soft, nt/nd Ext: WWP A/P: Wero Sadler is a 73 y.o. male who presents for planned whipple. Will proceed with planned operation. Uday Gomes MD 01/23/2024 General Surgery p. [phone] HPB surgery attending addendum I saw Wero this morning in the preoperative holding area shortly after Dr. Meza was able to get informed consent for the surgery. There really are no issues. Has been off his baby aspirin for abouta week and then the Tresiba was weaned down to off as noted in his chart. No concerns on exam. We discussed the plan to proceed with the Whipple operation as above and he signed informed consent. We also discussed the rationale for participating in this research study that ultimately is not going to benefit him at all but allows for us to obtain tumor tissue once it is completely resected tobank that tissue and possibly even make a mouse model of his tumor in addition to obtaining peripheral blood and portal venous blood for studying circulating tumor DNA for example. He knows that thisis not going to benefit him in any capacity but he is very eager to sign informed consent. Roberto Balbuena MD 01/23/2024 7:03 AM documented in this encounter Miscellaneous Notes * Care Management Discharge - Jessenia Self RN - 02/01/2024 11:39 AM EST CARE MANAGEMENT FINAL DISCHARGE NOTE Chart reviewed, care reviewed with primary team and at interdisciplinary rounds. Patient is medically ready for discharge to home. Needs for Transition of Care: Plan for discharge is: Home w/ Services Outpatient Agency/Support Group Needs: None Home Health Services: Registered Nurse, Physical Therapy, Occupational Therapy Agency Referrals & Follow-up Care: Contact information for follow-up [facility], [address] [address] Transportation: health plan transportation *RCT Functional status prior to admission: Independent Home Environment: Others in the home: alone. Current Living Arrangements: home/apartment/condo. Accessibility Concerns:1 CLARIBEL. 2 levels. can stay on 1 if need to. Current Functional Ability: DME used at home: none DME Needed at Discharge: FWW- delivered by [employer] Patient is insured through: Primary Insurance: MEDICARE Payor: MEDICARE / Plan: MEDICARE PART A & B / Product Type: *No Product type* / Secondary Insurance: AARP SUPPLEMENT Prescription Coverage: Yes Per provider pt is medically ready for discharge to home. He has been delivered his FWW and an RTC ride has been coordinated by social work. He voices comfort with the discharge plan. This plan was formulated with input from patient and team. All are in agreement with plan. I have reviewed the Important Message from Medicare (IMM) with patient. Patient verbalizes understanding of right to appeal this discharge if feeling not medically ready. Offered a copy of this letter. Jessenia Self RNCM Office of Care Management * Plan of Care - Julisa De La O RN - 02/01/2024 9:47 AM EST OUTCOME EVALUATION NOTE: OUTCOME SUMMARY: Ride home confirmed for noon at main entrance Glucose monitor put in by endocrine DO & walker brought to patient by [employer] Discharge instructions gone over with patient - verbalizes understanding Brought down to main entrance via wheelchair. VSS, Meds/Assessments as charted, Frequent safety checks performed PLAN MOVING FORWARD: Discharge today INDIVIDUALIZED FALL PREVENTION INTERVENTIONS: Patient-specific fall risk factors per assessment: [current deficits]: Lines/Devices, Recent procedure, High risk medications, Unfamiliar environment, General weakness Assistance [level of assistance required for transfers and ambulation]: Assist x1 w/ RW to Bathroom/BSC Supervision [direct monitoring required during toileting and ADLs]: Supervised Activity Surveillance [continuous indirect monitoring]: Frequent rounding & safety checks Patient-specific fall prevention interventions for sensory deficits provided, if applicable: [X] Yes CARE PLAN GOAL OUTCOME EVALUATION: Problem: Fall Injury Risk Goal: Absence of Fall and Fall-Related Injury Outcome: Outcome (s) achieved Problem: Adult Inpatient Plan of Care Goal: Plan of Care Review Outcome: Outcome (s) achieved Goal: Patient-Specific Goal (Individualized) Outcome: Outcome (s) achieved Goal: Absence of Hospital-Acquired Illness or Injury Outcome: Outcome (s) achieved Goal: Optimal Comfort and Wellbeing Outcome: Outcome (s) achieved Goal: Readiness for Transition of Care Outcome: Outcome (s) achieved Problem: Bleeding (Surgery Nonspecified) Goal: Absence of Bleeding Outcome: Outcome (s) achieved Problem: Bowel Motility Impaired (Surgery Nonspecified) Goal: Effective Bowel Elimination Outcome: Outcome (s) achieved Problem: Infection (Surgery Nonspecified) Goal: Absence of Infection Signs and Symptoms Outcome: Outcome (s) achieved Problem: Ongoing Anesthesia Effects (Surgery Nonspecified) Goal: Anesthesia/Sedation Recovery Outcome: Outcome (s) achieved Problem: Pain (Surgery Nonspecified) Goal: Acceptable Pain Control Outcome: Outcome (s) achieved Problem: Postoperative Nausea and Vomiting (Surgery Nonspecified) Goal: Nausea and Vomiting Relief Outcome: Outcome (s) achieved Problem: Postoperative Urinary Retention (Surgery Nonspecified) Goal: Effective Urinary Elimination Outcome: Outcome (s) achieved Problem: Pain Acute Goal: Acceptable Pain Control and Functional Ability Outcome: Outcome (s) achieved * Plan of Care - Jonathan Velasco RN - 02/01/2024 7:27 AM EST OUTCOME EVALUATION NOTE: OUTCOME SUMMARY: Pt AOx4, VSS on RA, pain controlled with scheduled tylenol. Pt c/o difficulty sleeping, melatonin ineffective, pt frequently disturbed by necessity of care rounding. Surgical incision and jay to midline CDI. PLAN MOVING FORWARD: INDIVIDUALIZED FALL PREVENTION INTERVENTIONS: Patient-specific fall risk factors per assessment: [current deficits]: Lines/Devices, Recent procedure, High risk medications, Unfamiliar environment, General weakness Assistance [level of assistance required for transfers and ambulation]: Assist x1 w/ RW to Bathroom/BSC Supervision [direct monitoring required during toileting and ADLs]: Supervised Activity Surveillance [continuous indirect monitoring]: Frequent rounding & safety checks Patient-specific fall prevention interventions for sensory deficits provided, if applicable: [X] Yes Problem: Fall Injury Risk Goal: Absence of Fall and Fall-Related Injury Outcome: Ongoing (Interventions Implemented as Appropriate) Problem: Adult Inpatient Plan of Care Goal: Plan of Care Review Outcome: Ongoing (Interventions Implemented as Appropriate) Goal: Patient-Specific Goal (Individualized) Outcome: Ongoing (Interventions Implemented as Appropriate) Goal: Absence of Hospital-Acquired Illness or Injury Outcome: Ongoing (Interventions Implemented as Appropriate) Goal: Optimal Comfort and Wellbeing Outcome: Ongoing (Interventions Implemented as Appropriate) Goal: Readiness for Transition of Care Outcome: Ongoing (Interventions Implemented as Appropriate) Problem: Bleeding (Surgery Nonspecified) Goal: Absence of Bleeding Outcome: Ongoing (Interventions Implemented as Appropriate) Problem: Bowel Motility Impaired (Surgery Nonspecified) Goal: Effective Bowel Elimination Outcome: Ongoing (Interventions Implemented as Appropriate) Problem: Infection (Surgery Nonspecified) Goal: Absence of Infection Signs and Symptoms Outcome: Ongoing (Interventions Implemented as Appropriate) Problem: Ongoing Anesthesia Effects (Surgery Nonspecified) Goal: Anesthesia/Sedation Recovery Outcome: Ongoing (Interventions Implemented as Appropriate) Problem: Pain (Surgery Nonspecified) Goal: Acceptable Pain Control Outcome: Ongoing (Interventions Implemented as Appropriate) Problem: Postoperative Nausea and Vomiting (Surgery Nonspecified) Goal: Nausea and Vomiting Relief Outcome: Ongoing (Interventions Implemented as Appropriate) Problem: Postoperative Urinary Retention (Surgery Nonspecified) Goal: Effective Urinary Elimination Outcome: Ongoing (Interventions Implemented as Appropriate) Problem: Pain Acute Goal: Acceptable Pain Control and Functional Ability Outcome: Ongoing (Interventions Implemented as Appropriate) * Plan of Care - Julisa De La O RN - 01/31/2024 7:38 PM EST OUTCOME EVALUATION NOTE: OUTCOME SUMMARY: VSS, Meds/Assessments as charted, Frequent safety checks performed PLAN MOVING FORWARD: INDIVIDUALIZED FALL PREVENTION INTERVENTIONS: Patient-specific fall risk factors per assessment: [current deficits]: Lines/Devices, Recent procedure, High risk medications, Unfamiliar environment, General weakness Assistance [level of assistance required for transfers and ambulation]: Assist x1 w/ RW to Bathroom/BSC Supervision [direct monitoring required during toileting and ADLs]: Supervised Activity Surveillance [continuous indirect monitoring]: Frequent rounding & safety checks Patient-specific fall prevention interventions for sensory deficits provided, if applicable: [X] Yes CARE PLAN GOAL OUTCOME EVALUATION: Problem: Fall Injury Risk Goal: Absence of Fall and Fall-Related Injury Outcome: Ongoing (Interventions Implemented as Appropriate) Problem: Adult Inpatient Plan of Care Goal: Plan of Care Review Outcome: Ongoing (Interventions Implemented as Appropriate) Goal: Patient-Specific Goal (Individualized) Outcome: Ongoing (Interventions Implemented as Appropriate) Goal: Absence of Hospital-Acquired Illness or Injury Outcome: Ongoing (Interventions Implemented as Appropriate) Goal: Optimal Comfort and Wellbeing Outcome: Ongoing (Interventions Implemented as Appropriate) Goal: Readiness for Transition of Care Outcome: Ongoing (Interventions Implemented as Appropriate) Problem: Bleeding (Surgery Nonspecified) Goal: Absence of Bleeding Outcome: Ongoing (Interventions Implemented as Appropriate) Problem: Bowel Motility Impaired (Surgery Nonspecified) Goal: Effective Bowel Elimination Outcome: Ongoing (Interventions Implemented as Appropriate) Problem: Infection (Surgery Nonspecified) Goal: Absence of Infection Signs and Symptoms Outcome: Ongoing (Interventions Implemented as Appropriate) Problem: Ongoing Anesthesia Effects (Surgery Nonspecified) Goal: Anesthesia/Sedation Recovery Outcome: Ongoing (Interventions Implemented as Appropriate) Problem: Pain (Surgery Nonspecified) Goal: Acceptable Pain Control Outcome: Ongoing (Interventions Implemented as Appropriate) Problem: Postoperative Nausea and Vomiting (Surgery Nonspecified) Goal: Nausea and Vomiting Relief Outcome: Ongoing (Interventions Implemented as Appropriate) Problem: Postoperative Urinary Retention (Surgery Nonspecified) Goal: Effective Urinary Elimination Outcome: Ongoing (Interventions Implemented as Appropriate) Problem: Pain Acute Goal: Acceptable Pain Control and Functional Ability Outcome: Ongoing (Interventions Implemented as Appropriate) * Care Management - Gabriela Raman 01/31/2024 3:22 PM ESTSummary: dc ride tentatively set for Saturday at 12 noon w. RCT CALL TO CONFIRM FOR SATURDAY AM -- 02 01 24 ; Team - Discharge ride is good for tomorrow ( Sat 02 01 24) at 12 noon from the Main Entrance- Portia be local company truck driver for RCT thru medicaid [place]. PLEASE call for 8 am tomorrow to confirm patient is still a go for dc and ride is needed, No ride will come if not confirmed. Pt going to [address] [place], [place] [address] in [facility]. Ride set w. Altagracia Forbes @ RCT on Saturday 3pm. * Care Management - Patricia Ramirez RN - 01/31/2024 1:05 PM EST OFFICE OF CARE MANAGEMENT PROGRESS NOTE LOS: Hospital Day 8 days Chart reviewed, care reviewed with primary team and at interdisciplinary rounds. Medical Decision Maker: Self Financial Decision Maker: Self Functional status prior to admission: Independent Home Environment: Others in the home: alone. Current Living Arrangements: home/apartment/condo. Accessibility Concerns: 1 CLARIBEL. 2 levels. can stay on 1 if need to. Current Functional Ability: assist of staff DME used at home: none DME Needed at Discharge: front wheel walker- ordered with [employer] Patient is insured through: Primary Insurance: MEDICARE Payor: MEDICARE / Plan: MEDICARE PART A & B / Product Type: *No Product type* / Secondary Insurance: AARP SUPPLEMENT Last Physical Therapy Recommendation: home with supervision with walker, front wheeled (01/30/24 1013) Last Occupational Therapy Recommendation: home with home health, home with supervision with walker,front wheeled (01/28/24 1140) Plan for discharge is: Home w/ Services Outpatient Agency/Support Group Needs: None Home Health Services: Registered Nurse, Physical Therapy, Occupational Therapy Agency Referrals: [facility] [address] [place] [address] Transportation: health plan transportation *RCT Barriers to discharge: Global: Denies needs/concerns at this time Plan: Patient is not medically ready related to: RBC transfusion for low Hgb. Plan going forward is: plan to discharge home tomorrow, patient will need RCT ride set up. Anticipated Date of Discharge: 02/01/2024 Patricia Ramirez, RN, MSN, [facility] Surgery Nurse Prototype [employer]sembler [phone] , Pager [phone] * Consult Note - Jeane Rooney, RD - 01/31/2024 8:44 AM EST Images from the original note were not included. Nutrition Progress Note Wero Sadler is a 74 y.o. 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 Interval History No data found. Reason for Assessment: TPN Nutrition Recommendations: TPN discontinued per team Diet advanced to level 2 carbohydrate counting Chocolate Glucerna BID Record % PO intake Monitoring: Daily BMP with Mg and Phos Weekly LFTs and TG Daily Weights I was able to discuss plan with provider Wilton Moore MD - Surg Onc 5012 and Richie Dinh APRN with glucose management team . Current Nutrition Regimen: Active Orders Diet Carb Control diet 60/60/75 CHO counting level 2 Frequency: Effective Now Number of Occurrences: Until Specified TPN Orders: TPN Medication Recent History (Show up to 3 orders; newest on the left. Changes between the two most recent orders are indicated.) Start date and time 01/29/2024 1800 01/28/2024 1800 01/27/2024 1800 Adult TPN (Custom) [[id number]] Adult TPN (Custom) [[id number]] Adult TPN (Custom) [[id number]] Order Status Discontinued Completed Completed Last Admin New Bag at 01/30/2024 180 by Bruno Frey RN Rate/Dose Verify at 01/28/20242054 by Nina Tipton RN New Bag at 01/27/2024 1838 by Verenice Pérez RN Frequency Continuous (TPN) Continuous (TPN) Continuous (TPN) Medications insulin regular human 76 Units 34 Units 12 Units Additives adult multivitamin 10 mL 10 mL 10 mL adult trace elements Zn-Cu-Mn-Se (Tralement) 1 mL 1 mL 1 mL thiamine 100 mg 100 mg 100 mg Electrolytes sodium phosphate 30 mmol 30 mmol 30 mmol potassium acetate 100 mEq 100 mEq 70 mEq sodium chloride 60 mEq 60 mEq 60 mEq calcium gluconate 10 mEq 10 mEq 10 mEq magnesium sulfate 20 mEq 20 mEq 16 mEq Dextrose dextrose 70% 230 g 170 g 118 g Amino Acids amino acid 15% no.5 (Clinisol) 110 g 110 g 100 g QS Base sterile water 83.9 mL 220.02 mL 1,267.13 mL Lipid fat emulsion soy/MCT /olive/fish (SMOFlipid) 20% 20% 60 g 50 g 40 g Energy Contribution Proteins 440 kcal 440 kcal 400 kcal Dextrose 782.07 kcal 578.1 kcal 401.27 kcal Lipids 600 kcal 500 kcal 400 kcal Total 1,822.07 kcal 1,518.1 kcal 1,201.27 kcal Electrolyte Ion Calculated Amount Sodium 100 mEq 100 mEq 100 mEq Potassium 100 mEq 100 mEq 70 mEq Calcium 10 mEq 10 mEq 10 mEq Magnesium 20 mEq 20 mEq 16 mEq Aluminum -- -- -- Phosphate 30 mmol 30 mmol 30 mmol Chloride 60 mEq 60 mEq 60 mEq Acetate 193.13 mEq 193.13 mEq 154.67 mEq Chloride: Acetate Ratio 0.31 0.31 0.39 Trace Elements Total Trace Elements 1 mL 1 mL 1 mL Copper 0.3 mg 0.3 mg 0.3 mg Manganese 55 mcg 55 mcg 55 mcg Selenium 60 mcg 60 mcg 60 mcg Zinc 3 mg 3 mg 3 mg Other Total Amino Acid 110 g 110 g 100 g Total Amino Acid/kg 1.15 g/kg 1.15 g/kg 1.05 g/kg Glucose Infusion Rate 1.68 mg/kg/min 1.24 mg/kg/min 0.86 mg/kg/min Osmolarity 1,763.01 1,566.44 837.04 Volume 1,560 mL 1,560 mL 2,400 mL Rate 65 mL/hr 65 mL/hr 100 mL/hr Dosing Weight 95.3 kg 95.3 kg 95.3 kg Infusion Site [facility] Total Multi-vitamins 10 mL 10 mL 10 mL Assessment: Lab Results Component Value Date NA 136 01/31/2024 NA 135 06/25/2023 K 4.0 01/31/2024 K 4.0 06/25/2023 CL 99 01/31/2024 CL 96 (L) 06/25/2023 CO2 27 01/31/2024 CO2 25 06/25/2023 BUN 20 01/31/2024 BUN 19 06/25/2023 CREATININE 0.73 (L) 01/31/2024 CREATININE 0.66 (L) 06/25/2023 ESTGFR 94 01/31/2024 ESTGFR 98 06/25/2023 MAGNESIUM 1.01 01/31/2024 CALCIUM 8.7 01/31/2024 CALCIUM 9.3 06/25/2023 PHOS 4.7 (H) 01/31/2024 AST 27 01/31/2024 AST 122 (H) 06/25/2023 ALT 34 01/31/2024 ALT 200 (H) 06/25/2023 ALKPHOS 130 01/31/2024 ALKPHOS 303 (H) 06/25/2023 BILITOT 0.8 01/31/2024 BILITOT 2.0 (H) 06/25/2023 TRIG 134 01/27/2024 HA1C 7.0 (H) 01/23/2024 Lab Results Component Value Date POCGLU 156 01/31/2024 POCGLU 152 01/31/2024 POCGLU 135 01/31/2024 POCGLU 150 01/30/2024 POCGLU 181 01/30/2024 POCGLU 224 (H) 01/30/2024 POCGLU 256 (H) 01/30/2024 Patient Lines/Drains/Airways Status Active Nutritional LDAs Name Placement date Placement time Site Days PIV 01/28/24 0556 20 gauge;1 in length cephalic vein (lateral side of arm), left 01/28/24 0556 -- 3 Implanted Port 07/05/23 1440 Single Lumen other (see comments) 07/05/23 1440 -- 210 Drain/Device Site 01/29/241922 Right lower flank other (see comments) 01/29/241922 -- 2 Oxygen Therapy / Airway Device: None (Room air) Shift Pressure Injury Prevention Occiput: No Injury Thoracic Spine: No Injury Sacral: No Injury Ischial - left: No Injury Ischial - right: No Injury Heel - left: No Injury Heel - right: No Injury Elbow - left: No Injury Elbow - right: No Injury Device Sites: BP Cuff, IV sites, O2 sat monitor, SCD's / venodynes Other Sites: ostomy appliance Last Bowel Movement: 01/30/24 Intake/Output Summary (Last 24 hours) at 01/31/2024 0844 Last data filed at 01/31/2024 0716 Gross per 24 hour Intake 1687 ml Output 1320 ml Net 367 ml Relevant medications: Atorvastatin, Insulin glargine, insulin lispro, reglan, protonix Anthropometrics: Admit Weight: 95.26 kg Estimated body mass index is 28.5 kg/m?? as calculated from the following: Height as of this encounter: 175.3 cm (5' 9). Weight as of this encounter: 87.5 kg (193 lb). [place] Body Weight (IBW) (kg): 72.73 Wt Readings from Last 10 Encounters: 01/31/24 87.5 kg (193 lb) 12/17/23 95.7 kg (211 lb) 11/29/23 92.2 kg (203 lb 3.2 oz) 12/02/23 90.7 kg (200 lb) 11/27/23 89.3 kg (196 lb 12.8 oz) 11/25/23 90.1 kg (198 lb 9.6 oz) 11/21/23 90.3 kg (199 lb) 11/18/23 90.7 kg (200 lb) 11/15/23 90.3 kg (199 lb) 11/01/23 91.9 kg (202 lb 9.6 oz) Patient Vitals for the past 168 hrs: Weight 01/31/24 0644 87.5 kg (193 lb) Estimated / Assessed Needs: Fluid Requirements: Estimated Fluid Requirement Method: Weight Based Method Weight Based Method: 25 Weight Based Calculation: 2267.5 mL Kcal / K - 2181 Kcal (25 Kcal/Kg - 30 Kcal/Kg) Estimated Protein Needs: 87 g - 109 g (1.2 g/Kg - 1.5 g/Kg) Nutrition intake and intake history / interview: 01/30: PN discontinued per team, diet advanced to lvl 2 CHO counting. Pt ordered 1732kcal and 85g protein yesterday, slightly below estimated needs with 25% consumed per flowsheets. Will add GlucernaBID as pt previously drinking, Boost Glucose Control may be sent as a substitute in light of product shortages. 01/28: Pt with 1L NGT output yesterday. Lytes now WNL. Elevated BG overnight - increasing insulin in andrea's PN for 1:3 insulin to carb ratio per glucose management team. Daily weights ordered to start this AM. 01/27: Pt with 1.6L NGT output yesterday. K 3.2; repletion ordered. BG of 209 this morning. PN to continue - increasing calories, K and Mag, as well as insulin per d/w diabetes management team. 01/26: TPN cx. Visited pt at bedside. Mauri reported he eats like a horse. Pt reports he normally eats 2 meals/day (breakfast and dinner). He enjoys foods such as breakfast sandwiches (salvadorean muffin, sausage, egg, cheese, butter) and items like steak/pizza/phili cheese steaks for dinner. He also drinks 2 Glucerna/day (chocolate flavor) and takes a daily multivitamin. Mauri endorses recent weightgain (200#-->213#). Per chart, pt has had recent weight gain (possibly related to fluid, edema noted in flowsheets). Mauri also reported that he is takes Creon-24 at home (3-4 pills with meals and 1-2 with snacks); pt confirms he's compliant and takes them with all meals/snacks. Per chart, potassium and phosphorus have been low - both now s/p repletion. NGT output x 24 hours: 730 mL. No data found. Nutrition Focused Physical Exam: Performed (by SC 01/26) . Subcutaneous Fat Loss Orbital region: None present Upper arm region (triceps/biceps): None present Thoracic and Lumbar regions (ribs, lower back, and maxillary line): Not assessed Lean Muscle Loss Jehovah'S Witness region (temporalis muscle): None present Clavicle bone region (pectoralis major): None present Dorsal hand (interosseous muscle): None present Shoulder (deltoid): None present Scapular bone region (latissimus dorsi, trapezius muscles): Not assessed Thigh region (quadriceps muscle): None present Posterior calf region (gastrocnemius muscle): None present Fluid Accumulation Fluid Accumulation: Not assessed Malnutrition Diagnosis: Not identified (LANDON Coto J Parenteral Enteral Nutr. 2011; 36(3): 273-83) Nutrition to continue to follow up while inpatient Jeane Rooney RD * Plan of Care - Lilly Yi RN - 01/31/2024 5:45 AM EST OUTCOME EVALUATION NOTE: OUTCOME SUMMARY: Pt is AxOx4, VSS on RA, afebrile. No complaints of SOB, N/V, or chest pain. No BM noted this shift.Voiding adequately via urinal. Pt c/o no pain this shift. Q4 BG checks, insulin given when order parameters were met. TPN running continuously at 65mL/hr. IV antibiotics infused as ordered. Old HEATHER site is covered with an ostomy appliance, outputting serosanguinous drainage. Abdominal midline incision is well-approximated with sutures, CDI. Bed alarm refused this shift. Plan of care is ongoing. PLAN MOVING FORWARD: Pain management Discharge planning Encourage ambulation Monitor VS and I&Os Q4 BG checks INDIVIDUALIZED FALL PREVENTION INTERVENTIONS: Patient-specific fall risk factors per assessment: [current deficits]: Generalized weakness, unfamiliar environment, acute pain, lines/drains, narcotics, visually impaired Assistance [level of assistance required for transfers and ambulation]: SBA w/ walker Supervision [direct monitoring required during toileting and ADLs]: Eyes on / Arms reach Surveillance [continuous indirect monitoring]: Call light within reach, room near unit station, purposeful rounding Patient-specific fall prevention interventions for sensory deficits provided, if applicable: Yes CARE PLAN GOAL OUTCOME EVALUATION: Problem: Fall Injury Risk Goal: Absence of Fall and Fall-Related Injury Outcome: Ongoing (Interventions Implemented as Appropriate) Problem: Adult Inpatient Plan of Care Goal: Plan of Care Review Outcome: Ongoing (Interventions Implemented as Appropriate) Goal: Patient-Specific Goal (Individualized) Outcome: Ongoing (Interventions Implemented as Appropriate) Goal: Absence of Hospital-Acquired Illness or Injury Outcome: Ongoing (Interventions Implemented as Appropriate) Goal: Optimal Comfort and Wellbeing Outcome: Ongoing (Interventions Implemented as Appropriate) Goal: Readiness for Transition of Care Outcome: Ongoing (Interventions Implemented as Appropriate) Problem: Bleeding (Surgery Nonspecified) Goal: Absence of Bleeding Outcome: Ongoing (Interventions Implemented as Appropriate) Problem: Bowel Motility Impaired (Surgery Nonspecified) Goal: Effective Bowel Elimination Outcome: Ongoing (Interventions Implemented as Appropriate) Problem: Infection (Surgery Nonspecified) Goal: Absence of Infection Signs and Symptoms Outcome: Ongoing (Interventions Implemented as Appropriate) Problem: Ongoing Anesthesia Effects (Surgery Nonspecified) Goal: Anesthesia/Sedation Recovery Outcome: Ongoing (Interventions Implemented as Appropriate) Problem: Pain (Surgery Nonspecified) Goal: Acceptable Pain Control Outcome: Ongoing (Interventions Implemented as Appropriate) Problem: Postoperative Nausea and Vomiting (Surgery Nonspecified) Goal: Nausea and Vomiting Relief Outcome: Ongoing (Interventions Implemented as Appropriate) Problem: Postoperative Urinary Retention (Surgery Nonspecified) Goal: Effective Urinary Elimination Outcome: Ongoing (Interventions Implemented as Appropriate) Problem: Pain Acute Goal: Acceptable Pain Control and Functional Ability Outcome: Ongoing (Interventions Implemented as Appropriate) * Plan of Care - Bruno Frey RN - 01/30/2024 7:38 PM EST AAOx4, VSS on RA. 1 formed BM today. Several UOP, half were unable to be measured. Ate 25 50% of all meals. Blood sugars in 200s most of day. Reported feeling bloated despite Reglan. Advised to avoid carbonated beverages or drinking a lot of fluids during meals. Small amount of red drainage from his right flank drain site (covered by urostomy pouch). Midline incision CDI Ambulated in halls 3x today. Refused to sit in chair despite padding with waffle cushion & pillows I have tried two different chairs and they are still uncomfortable * Plan of Care - Lilly Yi RN - 01/30/2024 5:21 AM EST OUTCOME EVALUATION NOTE: OUTCOME SUMMARY: Pt is AxOx4, VSS on RA, afebrile. No complaints of SOB, N/V, or chest pain. No BM noted this shift.Voiding adequately via urinal. Pt c/o no pain this shift. Q4 BG checks, insulin given when order parameters were met. TPN running continuously at 65mL/hr. Old HEATHER site is covered with an ostomy appliance, outputting serosanguinous drainage. Abdominal midline incision is well- approximated with sutures, CDI. Bed alarm refused this shift. Plan of care is ongoing. PLAN MOVING FORWARD: Pain management Discharge planning Encourage ambulation Monitor VS and I&Os Q4 BG checks INDIVIDUALIZED FALL PREVENTION INTERVENTIONS: Patient-specific fall risk factors per assessment: [current deficits]: Generalized weakness, unfamiliar environment, acute pain, lines/drains, narcotics, visually impaired Assistance [level of assistance required for transfers and ambulation]: SBA w/ walker Supervision [direct monitoring required during toileting and ADLs]: Eyes on / Arms reach Surveillance [continuous indirect monitoring]: Call light within reach, room near unit station, purposeful rounding Patient-specific fall prevention interventions for sensory deficits provided, if applicable: Yes CARE PLAN GOAL OUTCOME EVALUATION: Problem: Fall Injury Risk Goal: Absence of Fall and Fall-Related Injury Outcome: Ongoing (Interventions Implemented as Appropriate) Problem: Adult Inpatient Plan of Care Goal: Plan of Care Review Outcome: Ongoing (Interventions Implemented as Appropriate) Goal: Patient-Specific Goal (Individualized) Outcome: Ongoing (Interventions Implemented as Appropriate) Goal: Absence of Hospital-Acquired Illness or Injury Outcome: Ongoing (Interventions Implemented as Appropriate) Goal: Optimal Comfort and Wellbeing Outcome: Ongoing (Interventions Implemented as Appropriate) Goal: Readiness for Transition of Care Outcome: Ongoing (Interventions Implemented as Appropriate) Problem: Bleeding (Surgery Nonspecified) Goal: Absence of Bleeding Outcome: Ongoing (Interventions Implemented as Appropriate) Problem: Bowel Motility Impaired (Surgery Nonspecified) Goal: Effective Bowel Elimination Outcome: Ongoing (Interventions Implemented as Appropriate) Problem: Infection (Surgery Nonspecified) Goal: Absence of Infection Signs and Symptoms Outcome: Ongoing (Interventions Implemented as Appropriate) Problem: Ongoing Anesthesia Effects (Surgery Nonspecified) Goal: Anesthesia/Sedation Recovery Outcome: Ongoing (Interventions Implemented as Appropriate) Problem: Pain (Surgery Nonspecified) Goal: Acceptable Pain Control Outcome: Ongoing (Interventions Implemented as Appropriate) Problem: Postoperative Nausea and Vomiting (Surgery Nonspecified) Goal: Nausea and Vomiting Relief Outcome: Ongoing (Interventions Implemented as Appropriate) Problem: Postoperative Urinary Retention (Surgery Nonspecified) Goal: Effective Urinary Elimination Outcome: Ongoing (Interventions Implemented as Appropriate) Problem: Pain Acute Goal: Acceptable Pain Control and Functional Ability Outcome: Ongoing (Interventions Implemented as Appropriate) * Plan of Care - Vilma Lux RN - 01/29/2024 2:19 PM EST OUTCOME EVALUATION NOTE: OUTCOME SUMMARY: Visually impaired patient. AOx4. VSS on RA. BP is high, hydralazine administered per MAY. Afebrile.NG tube, Krause and PCEA pump removed today. Pt denies nausea, SOB, chest pain. Pain well controlledwith current meds. Pt voiding adequate amounts in urinal. Pt passing gas; pt had 0 BMs this shift. Incisions CDI.Old HEATHER site covered with ostomy appliance is outputting minimal serosanguinous drainage . Abdominal midline incision is well-approximated with sutures, CDI. Bed alarm set as patient will get up without calling for assistance. Pt does not believe he requires assistance. Pt ambulated in halls with staff and PT/OT. PLAN MOVING FORWARD: Encourage fluids. Maintain pain control. INDIVIDUALIZED FALL PREVENTION INTERVENTIONS: Patient-specific fall risk factors per assessment: [current deficits]: unfamiliar environment, generalized weakness, advanced age, pain, lines/drains, Assistance [level of assistance required for transfers and ambulation]: assist x 1 Supervision [direct monitoring required during toileting and ADLs]: hands on, Surveillance [continuous indirect monitoring]: purposeful rounding, call mcdonnell in reach, room near unit station Patient-specific fall prevention interventions for sensory deficits provided, if applicable: [X] Yes, environmental modifications, lights adjusted to task, non- skid socks CPG GOAL OUTCOME EVALUATION: Ongoing Problem: Fall Injury Risk Goal: Absence of Fall and Fall-Related Injury Outcome: Ongoing (Interventions Implemented as Appropriate) Problem: Adult Inpatient Plan of Care Goal: Plan of Care Review Outcome: Ongoing (Interventions Implemented as Appropriate) Goal: Patient-Specific Goal (Individualized) Outcome: Ongoing (Interventions Implemented as Appropriate) Goal: Absence of Hospital-Acquired Illness or Injury Outcome: Ongoing (Interventions Implemented as Appropriate) Goal: Optimal Comfort and Wellbeing Outcome: Ongoing (Interventions Implemented as Appropriate) Goal: Readiness for Transition of Care Outcome: Ongoing (Interventions Implemented as Appropriate) Problem: Bleeding (Surgery Nonspecified) Goal: Absence of Bleeding Outcome: Ongoing (Interventions Implemented as Appropriate) Problem: Bowel Motility Impaired (Surgery Nonspecified) Goal: Effective Bowel Elimination Outcome: Ongoing (Interventions Implemented as Appropriate) Problem: Infection (Surgery Nonspecified) Goal: Absence of Infection Signs and Symptoms Outcome: Ongoing (Interventions Implemented as Appropriate) Problem: Ongoing Anesthesia Effects (Surgery Nonspecified) Goal: Anesthesia/Sedation Recovery Outcome: Ongoing (Interventions Implemented as Appropriate) Problem: Pain (Surgery Nonspecified) Goal: Acceptable Pain Control Outcome: Ongoing (Interventions Implemented as Appropriate) Problem: Postoperative Nausea and Vomiting (Surgery Nonspecified) Goal: Nausea and Vomiting Relief Outcome: Ongoing (Interventions Implemented as Appropriate) Problem: Postoperative Urinary Retention (Surgery Nonspecified) Goal: Effective Urinary Elimination Outcome: Ongoing (Interventions Implemented as Appropriate) Problem: Pain Acute Goal: Acceptable Pain Control and Functional Ability Outcome: Ongoing (Interventions Implemented as Appropriate) * Consult Note - Casandra Briseno RD - 01/29/2024 9:07 AM EST Images from the original note were not included. Nutrition Progress Note Wero Sadler is a 74 y.o. 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 Interval History No data found. Reason for Assessment: TPN Nutrition Recommendations: Parenteral Nutrition Indications: Need to restrict oral or enteral intake: bowel rest TPN will provide 1822 kcal as 110 g AA, 230 g dextrose, 60 g SMOF lipid in 1560mL volume and 64 mEq/L Na 76 units of insulin (1:3 insulin to carb ratio per glucose management team) Increasing calories to within goal range Monitoring: Daily BMP with Mg and Phos Weekly LFTs and TG Daily Weights I was able to discuss plan with provider Wilton Moore MD - Surg Onc 5012 and Heavenly Martinez APRN with glucose management team . Current Nutrition Regimen: Active Orders Diet Sips and Chips (Give Meds) Frequency: Effective Now Number of Occurrences: Until Specified TPN Orders: TPN Medication Recent History (Show up to 3 orders; newest on the left. Changes between the two most recent orders are indicated.) Start date and time 01/29/2024 1800 01/28/2024 1800 01/27/2024 1800 Adult TPN (Custom) [[id number]] Adult TPN (Custom) [[id number]] Adult TPN (Custom) [[id number]] Order Status Active Last Dose in Progress Completed Last Admin Rate/Dose Verify at 01/28/20242054 by Nina Tipton RN New Bag at 01/27/2024 183 by Verenice Pérez RN Frequency Continuous (TPN) Continuous (TPN) Continuous (TPN) Medications insulin regular human 76 Units 34 Units 12 Units Additives adult multivitamin 10 mL 10 mL 10 mL adult trace elements Zn-Cu-Mn-Se (Tralement) 1 mL 1 mL 1 mL thiamine 100 mg 100 mg 100 mg Electrolytes sodium phosphate 30 mmol 30 mmol 30 mmol potassium acetate 100 mEq 100 mEq 70 mEq sodium chloride 60 mEq 60 mEq 60 mEq calcium gluconate 10 mEq 10 mEq 10 mEq magnesium sulfate 20 mEq 20 mEq 16 mEq Dextrose dextrose 70% 230 g 170 g 118 g Amino Acids amino acid 15% no.5 (Clinisol) 110 g 110 g 100 g QS Base sterile water 83.9 mL 220.02 mL 1,267.13 mL Lipid fat emulsion soy/MCT /olive/fish (SMOFlipid) 20% 20% 60 g 50 g 40 g Energy Contribution Proteins 440 kcal 440 kcal 400 kcal Dextrose 782.07 kcal 578.1 kcal 401.27 kcal Lipids 600 kcal 500 kcal 400 kcal Total 1,822.07 kcal 1,518.1 kcal 1,201.27 kcal Electrolyte Ion Calculated Amount Sodium 100 mEq 100 mEq 100 mEq Potassium 100 mEq 100 mEq 70 mEq Calcium 10 mEq 10 mEq 10 mEq Magnesium 20 mEq 20 mEq 16 mEq Aluminum -- -- -- Phosphate 30 mmol 30 mmol 30 mmol Chloride 60 mEq 60 mEq 60 mEq Acetate 193.13 mEq 193.13 mEq 154.67 mEq Chloride: Acetate Ratio 0.31 0.31 0.39 Trace Elements Total Trace Elements 1 mL 1 mL 1 mL Copper 0.3 mg 0.3 mg 0.3 mg Manganese 55 mcg 55 mcg 55 mcg Selenium 60 mcg 60 mcg 60 mcg Zinc 3 mg 3 mg 3 mg Other Total Amino Acid 110 g 110 g 100 g Total Amino Acid/kg 1.15 g/kg 1.15 g/kg 1.05 g/kg Glucose Infusion Rate 1.68 mg/kg/min 1.24 mg/kg/min 0.86 mg/kg/min Osmolarity 1,763.01 1,566.44 837.04 Volume 1,560 mL 1,560 mL 2,400 mL Rate 65 mL/hr 65 mL/hr 100 mL/hr Dosing Weight 95.3 kg 95.3 kg 95.3 kg Infusion Site [facility] Total Multi-vitamins 10 mL 10 mL 10 mL Assessment: Lab Results Component Value Date NA 136 01/29/2024 NA 135 06/25/2023 K 3.6 01/29/2024 K 4.0 06/25/2023 CL 99 01/29/2024 CL 96 (L) 06/25/2023 CO2 30 01/29/2024 CO2 25 06/25/2023 BUN 12 01/29/2024 BUN 19 06/25/2023 CREATININE 0.50 (L) 01/29/2024 CREATININE 0.66 (L) 06/25/2023 ESTGFR 106 01/29/2024 ESTGFR 98 06/25/2023 MAGNESIUM 0.86 01/29/2024 CALCIUM 8.5 01/29/2024 CALCIUM 9.3 06/25/2023 PHOS 3.2 01/29/2024 AST 17 01/29/2024 AST 122 (H) 06/25/2023 ALT 39 01/29/2024 ALT 200 (H) 06/25/2023 ALKPHOS 121 01/29/2024 ALKPHOS 303 (H) 06/25/2023 BILITOT 0.7 01/29/2024 BILITOT 2.0 (H) 06/25/2023 TRIG 134 01/27/2024 HA1C 7.0 (H) 01/23/2024 Lab Results Component Value Date POCGLU 206 (H) 01/29/2024 POCGLU 200 (H) 01/29/2024 POCGLU 191 01/28/2024 POCGLU 194 01/28/2024 POCGLU 191 01/28/2024 POCGLU 206 (H) 01/28/2024 Patient Lines/Drains/Airways Status Active Nutritional LDAs Name Placement date Placement time Site Days Naso/Oral Tube 01/23/24 1545 [place] sump left nostril 01/23/24 1545 left nostril 6 PIV 01/28/24 0556 20 gauge;1 in length cephalic vein (lateral side of arm), left 01/28/24 0556 -- 1 Implanted Port 07/05/23 1440 Single Lumen other (see comments) 07/05/23 1440 -- 208 Urethral Catheter 01/23/24 0750 100% silicone 14 5 10 01/23/24 0750 -- 6 Oxygen Therapy / Airway Device: None (Room air) Shift Pressure Injury Prevention Occiput: No Injury Thoracic Spine: No Injury Sacral: No Injury Ischial - left: No Injury Ischial - right: No Injury Heel - left: No Injury Heel - right: No Injury Elbow - left: No Injury Elbow - right: No Injury Device Sites: BP Cuff, krause, IV sites, O2 sat monitor, SCD's / venodynes Other Sites: Epidural, ostomy pouch Last Bowel Movement: 01/29/24 Intake/Output Summary (Last 24 hours) at 01/29/2024 0907 Last data filed at 01/29/2024 0554 Gross per 24 hour Intake 1908.65 ml Output 3675 ml Net -1766.35 ml Relevant medications: Insulin glargine, insulin lispro, reglan, protonix Anthropometrics: Admit Weight: 95.26 kg Estimated body mass index is 31.01 kg/m?? as calculated from the following: Height as of this encounter: 175.3 cm (5' 9). Weight as of this encounter: 95.3 kg (210 lb). [place] Body Weight (IBW) (kg): 72.73 Wt Readings from Last 10 Encounters: 01/23/24 95.3 kg (210 lb) 12/17/23 95.7 kg (211 lb) 11/29/23 92.2 kg (203 lb 3.2 oz) 12/02/23 90.7 kg (200 lb) 11/27/23 89.3 kg (196 lb 12.8 oz) 11/25/23 90.1 kg (198 lb 9.6 oz) 11/21/23 90.3 kg (199 lb) 11/18/23 90.7 kg (200 lb) 11/15/23 90.3 kg (199 lb) 11/01/23 91.9 kg (202 lb 9.6 oz) Patient Vitals for the past 168 hrs: Weight 01/23/24 0626 95.3 kg (210 lb) Estimated / Assessed Needs: Fluid Requirements: Estimated Fluid Requirement Method: Weight Based Method Weight Based Method: 25 Weight Based Calculation: 2267.5 mL Kcal / K - 2181 Kcal (25 Kcal/Kg - 30 Kcal/Kg) Estimated Protein Needs: 87 g - 109 g (1.2 g/Kg - 1.5 g/Kg) Nutrition intake and intake history / interview: 01/28: Pt with 1L NGT output yesterday. Lytes now WNL. Elevated BG overnight - increasing insulin in tonight's PN for 1:3 insulin to carb ratio per glucose management team. Daily weights ordered to start this AM. 01/27: Pt with 1.6L NGT output yesterday. K 3.2; repletion ordered. BG of 209 this morning. PN to continue - increasing calories, K and Mag, as well as insulin per d/w diabetes management team. 01/26: TPN cx. Visited pt at bedside. Mauri reported he eats like a horse. Pt reports he normally eats 2 meals/day (breakfast and dinner). He enjoys foods such as breakfast sandwiches (salvadorean muffin, sausage, egg, cheese, butter) and items like steak/pizza/phili cheese steaks for dinner. He also drinks 2 Glucerna/day (chocolate flavor) and takes a daily multivitamin. Mauri endorses recent weightgain (200#-->213#). Per chart, pt has had recent weight gain (possibly related to fluid, edema noted in flowsheets). Mauri also reported that he is takes Creon-24 at home (3-4 pills with meals and 1-2 with snacks); pt confirms he's compliant and takes them with all meals/snacks. Per chart, potassium and phosphorus have been low - both now s/p repletion. NGT output x 24 hours: 730 mL. No data found. Nutrition Focused Physical Exam: Performed (by SC 01/26) . Subcutaneous Fat Loss Orbital region: None present Upper arm region (triceps/biceps): None present Thoracic and Lumbar regions (ribs, lower back, and maxillary line): Not assessed Lean Muscle Loss Jehovah'S Witness region (temporalis muscle): None present Clavicle bone region (pectoralis major): None present Dorsal hand (interosseous muscle): None present Shoulder (deltoid): None present Scapular bone region (latissimus dorsi, trapezius muscles): Not assessed Thigh region (quadriceps muscle): None present Posterior calf region (gastrocnemius muscle): None present Fluid Accumulation Fluid Accumulation: Not assessed Malnutrition Diagnosis: Not identified (LANDON Coto J Parenteral Enteral Nutr. 2011; 36(3): 273-83) Nutrition to continue to follow up while inpatient Casandra Briseno RD * Plan of Care - Lilly Yi RN - 01/29/2024 5:15 AM EST OUTCOME EVALUATION NOTE: OUTCOME SUMMARY: Pt is AxOx4, VSS on RA, afebrile. No complaints of SOB, N/V, or chest pain. One BM noted this shift. Voiding adequately via krause. Krause care completed this shift. Pt c/o no pain this shift, managed with epidural and IV tylenol. Q4 BG checks, insulin given when order parameters were met. TPN running continuously at 65mL/hr. Old HEATHER site is covered with an ostomy appliance, outputting minimal serosanguinous drainage. L NGT to LCWS, outputting dark green drainage. Flushing NGT with 30cc of NS and instilling 30cc of air into the vent q4 hours as ordered. Abdominal midline incision is well-approximated with sutures, CDI. Epidural bag changed this shift and shift totals were completed. Plan of care is ongoing. PLAN MOVING FORWARD: Pain management Discharge planning Encourage ambulation Monitor VS and I&Os Q4 BG checks Epidural bag expires on 01/29 @ 0600 INDIVIDUALIZED FALL PREVENTION INTERVENTIONS: Patient-specific fall risk factors per assessment: [current deficits]: Generalized weakness, unfamiliar environment, acute pain, lines/drains, narcotics Assistance [level of assistance required for transfers and ambulation]: 1 assist w/ walker Supervision [direct monitoring required during toileting and ADLs]: Eyes on / Arms reach Surveillance [continuous indirect monitoring]: Call light within reach, room near unit station, purposeful rounding Patient-specific fall prevention interventions for sensory deficits provided, if applicable: Yes CARE PLAN GOAL OUTCOME EVALUATION: Problem: Fall Injury Risk Goal: Absence of Fall and Fall-Related Injury Outcome: Ongoing (Interventions Implemented as Appropriate) Problem: Adult Inpatient Plan of Care Goal: Plan of Care Review Outcome: Ongoing (Interventions Implemented as Appropriate) Goal: Patient-Specific Goal (Individualized) Outcome: Ongoing (Interventions Implemented as Appropriate) Goal: Absence of Hospital-Acquired Illness or Injury Outcome: Ongoing (Interventions Implemented as Appropriate) Goal: Optimal Comfort and Wellbeing Outcome: Ongoing (Interventions Implemented as Appropriate) Goal: Readiness for Transition of Care Outcome: Ongoing (Interventions Implemented as Appropriate) Problem: Bleeding (Surgery Nonspecified) Goal: Absence of Bleeding Outcome: Ongoing (Interventions Implemented as Appropriate) Problem: Bowel Motility Impaired (Surgery Nonspecified) Goal: Effective Bowel Elimination Outcome: Ongoing (Interventions Implemented as Appropriate) Problem: Infection (Surgery Nonspecified) Goal: Absence of Infection Signs and Symptoms Outcome: Ongoing (Interventions Implemented as Appropriate) Problem: Ongoing Anesthesia Effects (Surgery Nonspecified) Goal: Anesthesia/Sedation Recovery Outcome: Ongoing (Interventions Implemented as Appropriate) Problem: Pain (Surgery Nonspecified) Goal: Acceptable Pain Control Outcome: Ongoing (Interventions Implemented as Appropriate) Problem: Postoperative Nausea and Vomiting (Surgery Nonspecified) Goal: Nausea and Vomiting Relief Outcome: Ongoing (Interventions Implemented as Appropriate) Problem: Postoperative Urinary Retention (Surgery Nonspecified) Goal: Effective Urinary Elimination Outcome: Ongoing (Interventions Implemented as Appropriate) Problem: Pain Acute Goal: Acceptable Pain Control and Functional Ability Outcome: Ongoing (Interventions Implemented as Appropriate) * Initial Assessments - Savannah Garrett, OT - 01/28/2024 11:40 AM EST Occupational Therapy Evaluation Patient profile: Wero Sadler is a 74 y.o. male admitted on 01/23/2024. 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 Presents to OT for evaluation of functional activity. 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 can not read. can see shadows. No vision in left eye since child saavedra accident. Cancer prostate, colorectal Claudication Colon adenocarcinoma 2008 recieved chemo in [place] Coronary artery disease Coronary artery dissection CPAP (continuous positive airway pressure) dependence CPAP Diabetes treated with medication Diabetes mellitus 07/22/2019 Gastroesophageal reflux High blood pressure Hyperlipidemia Obstructive sleep apnea Status post chemotherapy 2008 colon cancer Stroke 11-24-19 Past surgical history: Past Surgical History: Procedure Laterality Date CARDIAC SURGERY 12/04/2019 triple bypass CAROTID ENDARTERECTOMY Left 12/04/19, Right 6 months prior CAROTID-SUBCLAVIAN BYPASS GRAFT Bilateral 2017, 2018 FEMORAL-TIBIAL BYPASS GRAFT Left 12/2017 JOINT REPLACEMENT Left hip, left knee, right knee x 2 PRG FLUOROSCOPY EXAM UP TO 1 HR PHY OR OT HLTH CARE PROV N/A 07/05/2023 FLUOROSCOPY (WRVU 0.3) performed by Tor Balbuena MD at [facility] OSC PRO ARTHROPLASTY ACETABULAR/PROX FEM PROSTC AGRFT/ALGRFT Left 10/10/2020 TOTAL HIP ARTHROPLASTY - POSTERIOR (WRVU 20.72) performed by Ismael Wu MD at [facility] MAIN OR PRO ARTHROPLASTY ACETABULAR/PROX FEM PROSTC AGRFT/ALGRFT Right 11/17/2021 TOTAL HIP ARTHROPLASTY - POSTERIOR (WRVU 20.72) performed by Ismael Wu MD at [facility] MAIN OR PRO ENDOSCOPIC US EXAM, ESOPH N/A 07/02/2023 UPPER EUS- ENDOSCOPIC ULTRASOUND (WRVU 3.47) performed by Pako Lopez MD at [facility] ENDOSCOPY PRO ERCP, W/REMOVAL STONE, TARYN/PANCR DUCTS 07/02/2023 ERCP W/REMOVAL CALCULI/DEBRIS FROM BILARY/PANCREATIC DUCT(S) (WRVU 6.63) performed by Pako Lopez MD at [facility] ENDOSCOPY PRO ERCP,DIAGNOSTIC N/A 07/02/2023 ERCP (WRVU 5.85) performed by Pako Lopez MD at [facility] ENDOSCOPY PRO EXPLORATION NOT FOLLOWED BY SURG NECK ARTERY Right 07/14/2021 @EXPLORATION NOT FOLLOWED BY SURGICAL REPAIR, ARTERY; NECK (CAROTID OR SUBCLAVIAN) (WRVU 9.19) performed by Basim Barr MD at [facility] MAIN OR PRO INSERT TUNNELED CV CATH W SUBQ PORT, AGE 3 YRS OR OLDER N/A 07/05/2023 MARIO\AMELIA.CATHETER,TUNNELED, WITH SQ PORT OR PUMP OVER 5YR (WRVU 5.79) performed by Maggi Balbuena MD at [facility] OSC PRO LAP, DIAGNOSTIC ABDOMEN N/A 07/05/2023 LAPAROSCOPY, DIAGNOSTIC, ABDOMEN (WRVU 5.14) performed by Tor Balbuena MD at [facility] OSC PRO LASER VAPORIZATION SURGERY PROSTATE, COMPLETE Midline 02/02/2021 CYSTO, LASER TURP (WRVU 12.15) performed by Cayetano Engle MD at [facility] MAIN OR PRO OMENTAL FLAP, INTRA-ABDOMINAL 01/23/2024 @OMENTAL FLAP, INTRA-ABDOMINAL (WRVU 6.54) performed by Tor Balbuena MD at [facility] MAIN OR PRO PART REMV PANC, PROX+REMV DUOD+ANAST N/A 01/23/2024 @WHIPPLE PROCEDURE (WRVU 52.84) performed by Tor Balbuena MD at [facility] MAIN OR PRO PLACE TRANSCATHETER STENT, CCA W EMBOLIC PROECT Right 07/14/2021 @TRANSCATH INTRAVASCULAR STENT,CAROTID,PERC,W\EMBOLIC PROT. (WRVU 18) performed by Basim Barr MD at [facility] MAIN OR PRO UNLISTED PROCEDURE VASCULAR SURGERY 01/23/2024 PORTAL VEIN REPAIR (WRVU 13.24) performed by Tor Balbuena MD at [facility] MAIN OR Subjective: Pt received sitting EOB without visitors present. Pt agreeable to OT evaluation this date. Pt A&Ox4, on RA, and VSS. This is the nastiest toothpaste I've ever used Handoff given to RN including pt's location and pertinent information at cessation of session. Pain: Pt reporting no pain Social History: Home Setup: Pt lives in a two story home with 1 [address] with his primary bedroom upstairs. Pt has a bathroom on both levels. Pt's upstairs bathroom is a tub and his first floor bathroom is a walk in shower with a grab bar, shower chair, and hand held shower head. Social support: Pt lives alone. Pt has friends who check in with him daily, friends also provide groceries and occasionally transportation DME: Walking stick Shower chair Shower grab bar Hand held shower head Baseline ADL/Mobility: Pt is independent at baseline with use of walking stick for mobility. Pt is independent with ADL tasks. Pt receives MOW and gets his groceries brought to him by friends. Pt does not drive, is legallyblind. Pt endorses numerous falls outside. Precautions/Special Considerations: Falls, abdmininal incision, abdominal precautions, legally blind. 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, sips and chips, NGT to suction, Patient Lines/Drains/Airways Status Active Tubes/Lines/Drains Name Placement date Placement time Site Days Implanted Port 07/05/23 1440 Single Lumen other (see comments) 07/05/23 1440 -- 207 PIV 01/28/24 0556 20 gauge;1 in length cephalic vein (lateral side of arm), left 01/28/24 0556 -- less than 1 Urethral Catheter 01/23/24 0750 100% silicone 14 5 10 01/23/24 0750 -- 5 Naso/Oral Tube 01/23/24 1545 [place] sump left nostril 01/23/24 1545 left nostril 5 Epidural Catheter 01/23/24 0726 thoracic 01/23/24 0726 -- 5 Activity Orders: Activity Orders (From admission to next 72h) Start Ordered 01/24/24 0800 Up in chair 2 TIMES DAILY Comments: OOB to chair in A.M. Post procedure 01/23/24202901/24/24 0800 Ambulate patient TID in adan 3 TIMES DAILY Question Answer Comment patient to ambulate in adan with assistance 01/23/242029 Objective: Seen today for OT evaluation and education Vital signs/endurance: Pt on RA, reports no dizziness, lightheadedness, and VSS BP 143/69(87) SpO2 97% HR: 67bpm Cognitive Status/Behavior Behavior / Mood: alert and cooperative Alert and oriented to: person, place, month, year, day of week, and situation Follows commands: 1 step and 2 step Attention: difficulty attending to task / directions Safety awareness: decreased insight into deficits Required moderate cuing to adhere to abdominal precautions. Vision & Perception: legally blind, able to see high contrast Communication: WFL Hearing: WFL Upper Extremity Assessment: Fine Motor Skills/Coordination: WFL based on clinical observation Upper Extremity Impairments: No impairments noted Upper Extremity Sensation: WFL Range of Motion: WFL Upper Extremity Strength: WFL Muscle Tone: WNL in upper extremities Activities of Daily Living: Self-feeding: currently sips/chips. Will benefit from set up A d/t visual impairments once diet order is updated Hygiene/grooming: brushed teeth at sink supervision Lower Body Dressing: mod A don pants sitting EOB, cuing and physical assist to obtain figure 4 position. RLE donned sock min A, max A LLE sock Functional Mobility: Sit to stand: CGA RW Ambulation: 20'x2 CGA RW Hospital bed Transfer: SBA RW stand step Stand to sit: SBA Sit to supine: min A cueing for log roll Balance: Static seated balance: Good, Supervision Dynamic seated balance: Good, Supervision Static standing balance: Good, SbA Dynamic standing balance: Good, CgA Education: patient have been educated on Role of occupational therapy/rehabilitation, Transfers, Assistive device/technique, Adaptive equipment training, ADL, Positioning, Safety, Precautions/Protocol, Functional Mobility, Recommendations, and Discharge planning and verbalizes and demonstrates understanding. Assessment: Wero Sadler presents with the following performance skill deficits and client factors: decreased activity tolerance, decreased flexibility / ROM, decreased strength, visual deficits, decreased motor control, decreased postural control, deconditioning, precautions / bracing, compromised mobilitystatus, and coping. These performance deficits have led to activity limitations and participation restrictions in the following areas of occupation: dressing, bathing, toileting, self-feeding, transfers / mobility, home management, leisure, community mobility, and social participating. Pt seen for OT evaluation this date and tolerated well. Pt re-educated on abdominal precautions, required cuing throughout session for adherence. Pt completed functional mobility and tranfers and ~5 mins standing at sink with CGA-SBA and RW. Pt completed oral hygiene standing at sink with supervision, cuing only for visual deficits d/t unfamiliar environment. Pt required assistance for LBD this date d/t precautions, visual impairments, and decreased flexibility with figure 4 sitting. Pt will benefit from continued acute OT to address performance deficits and maximize participation and independence with activities of daily living while in hospital. Anticipate pt to discharge home once medically ready. Pt to benefit from initial supervision at home. Pt to benefit from HHOT. DME Needs: RW. Acute OT will follow. Equipment Needs Upon Discharge (OT): walker, front wheeled Anticipated Discharge Disposition (OT): home with home health, home with supervision Other Recommendations: EPM Level 5: Ambulate, Participate in self care OOB to chair for all meals Ambulate as tolerated with 1A and RW Encourage participation in ADL's by providing set up assist on tray table and physical assist only as needed Promote normalcy by encouraging participation in common daily tasks & leisure activities by providing set up assist Encourage use of coping mechanisms Facilitate normal sleep wake cycle Other Recommendations: No other consults recommended at this time. Goals: To be achieved by 02/11/24. Pt will independently implement abdominal precautions during functional activities and transfers. Pt will complete functional mobilities/tranfers with supervision using least restrictive device prnin preparation for ADL/IADL tasks. Pt will complete LBD with supervision using compensatory strategies/LRAD prn. Pt will complete UBD with supervision using compensatory strategies/LRAD prn. Pt will complete all aspects of toileting with supervision using compensatory strategies/LRAD prn. Pt will complete bathing with supervision using compensatory strategies/LRAD prn. Pt will complete 2-3 grooming tasks at sink level with supervision and LRAD. Plan: OT: Therapy Frequency (OT): 2-3 times/wk Total Minutes, Occupational Therapy: 30 ([id number]) Planned OT interventions: Role of occupational therapy/rehabilitation, Transfers, Assistive device/technique, Adaptive equipment training, ADL, Positioning, Safety, Precautions/Protocol, Functional Mobility, Activity pacing/Energy conservation, Home Program, Home Management, Balance, Recommendations, and Discharge planning. 2017 OT Evaluation Code Rationale: Diagnosis & Pertinent Co-Morbidities affecting Plan of Care: see PMHx Occupational Profile & Client History: Brief Expanded Extensive x Assessment of Occupational Performance: 1-3 performance deficits 3-5 performance deficits x 5 + performance deficits Clinical Decision Making: Low Moderate High x Clinical decision making of moderate complexity using standardized patient assessment instrument and measurable assessment of functional outcome. Additional treatment provided: None, initial evaluation only. Savannah Garrett, MIKEYR/L They/Them Occupational Therapy Rehabilitation Department Pager # [phone] * Consult Note - Casandra Briseno, NATHAN - 01/28/2024 11:16 AM EST Images from the original note were not included. Nutrition Progress Note Wero Sadler is a 74 y.o. 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 Interval History No data found. Reason for Assessment: TPN Nutrition Recommendations: Parenteral Nutrition Indications: Need to restrict oral or enteral intake: bowel rest TPN will provide 1518 kcal as 110 g AA, 170 g dextrose, 50 g SMOF lipid in 1560mL volume and 64 mEq/L Na 34 units of insulin (1:5 insulin to carb ratio per diabetes management team) Increasing calories, K and Mag Concentrating per team request Monitoring: Daily BMP with Mg and Phos Weekly LFTs and TG Daily Weights I was able to discuss plan with provider CASA Dominguez - Surg Onc [id number] . Current Nutrition Regimen: Active Orders Diet Sips and Chips (Give Meds) Frequency: Effective Now Number of Occurrences: Until Specified TPN Orders: TPN Medication Recent History (Show up to 3 orders; newest on the left. Changes between the two most recent orders are indicated.) Start date and time 01/28/2024 1800 01/27/2024 1800 Adult TPN (Custom) [[id number]] Adult TPN (Custom) [[id number]] Order Status Active Last Dose in Progress Last Admin New Bag at 01/27/2024 1838 by Verenice Pérez RN Frequency Continuous (TPN) Continuous (TPN) Medications insulin regular human 34 Units 12 Units Additives adult multivitamin 10 mL 10 mL adult trace elements Zn-Cu-Mn-Se (Tralement) 1 mL 1 mL thiamine 100 mg 100 mg Electrolytes sodium phosphate 30 mmol 30 mmol potassium acetate 100 mEq 70 mEq sodium chloride 60 mEq 60 mEq calcium gluconate 10 mEq 10 mEq magnesium sulfate 20 mEq 16 mEq Dextrose dextrose 70% 170 g 118 g Amino Acids amino acid 15% no.5 (Clinisol) 110 g 100 g QS Base sterile water 220.02 mL 1,267.13 mL Lipid fat emulsion soy/MCT /olive/fish (SMOFlipid) 20% 20% 50 g 40 g Energy Contribution Proteins 440 kcal 400 kcal Dextrose 578.1 kcal 401.27 kcal Lipids 500 kcal 400 kcal Total 1,518.1 kcal 1,201.27 kcal Electrolyte Ion Calculated Amount Sodium 100 mEq 100 mEq Potassium 100 mEq 70 mEq Calcium 10 mEq 10 mEq Magnesium 20 mEq 16 mEq Aluminum -- -- Phosphate 30 mmol 30 mmol Chloride 60 mEq 60 mEq Acetate 193.13 mEq 154.67 mEq Chloride: Acetate Ratio 0.31 0.39 Trace Elements Total Trace Elements 1 mL 1 mL Copper 0.3 mg 0.3 mg Manganese 55 mcg 55 mcg Selenium 60 mcg 60 mcg Zinc 3 mg 3 mg Other Total Amino Acid 110 g 100 g Total Amino Acid/kg 1.15 g/kg 1.05 g/kg Glucose Infusion Rate 1.24 mg/kg/min 0.86 mg/kg/min Osmolarity 1,566.44 837.04 Volume 1,560 mL 2,400 mL Rate 65 mL/hr 100 mL/hr Dosing Weight 95.3 kg 95.3 kg Infusion Site Central Central Total Multi-vitamins 10 mL 10 mL Assessment: Lab Results Component Value Date NA 137 01/28/2024 NA 135 06/25/2023 K 3.2 (L) 01/28/2024 K 4.0 06/25/2023 CL 100 01/28/2024 CL 96 (L) 06/25/2023 CO2 29 01/28/2024 CO2 25 06/25/2023 BUN 9 (L) 01/28/2024 BUN 19 06/25/2023 CREATININE 0.51 (L) 01/28/2024 CREATININE 0.66 (L) 06/25/2023 ESTGFR 105 01/28/2024 ESTGFR 98 06/25/2023 MAGNESIUM 0.81 01/28/2024 CALCIUM 8.3 (L) 01/28/2024 CALCIUM 9.3 06/25/2023 PHOS 2.9 01/28/2024 AST 19 01/28/2024 AST 122 (H) 06/25/2023 ALT 45 01/28/2024 ALT 200 (H) 06/25/2023 ALKPHOS 123 01/28/2024 ALKPHOS 303 (H) 06/25/2023 BILITOT 0.8 01/28/2024 BILITOT 2.0 (H) 06/25/2023 TRIG 134 01/27/2024 HA1C 7.0 (H) 01/23/2024 Lab Results Component Value Date POCGLU 209 (H) 01/28/2024 POCGLU 185 01/28/2024 POCGLU 197 01/27/2024 POCGLU 197 01/27/2024 POCGLU 219 (H) 01/27/2024 POCGLU 202 (H) 01/27/2024 Patient Lines/Drains/Airways Status Active Nutritional LDAs Name Placement date Placement time Site Days Naso/Oral Tube 01/23/24 1545 [place] sump left nostril 01/23/24 1545 left nostril 5 PIV 01/28/24 0556 20 gauge;1 in length cephalic vein (lateral side of arm), left 01/28/24 0556 -- less than 1 Implanted Port 07/05/23 1440 Single Lumen other (see comments) 07/05/23 1440 -- 207 Urethral Catheter 01/23/24 0750 100% silicone 14 5 10 01/23/24 0750 -- 5 Oxygen Therapy / Airway Device: None (Room air) Shift Pressure Injury Prevention Occiput: No Injury Thoracic Spine: No Injury Sacral: No Injury Ischial - left: No Injury Ischial - right: No Injury Heel - left: No Injury Heel - right: No Injury Elbow - left: No Injury Elbow - right: No Injury Device Sites: BP Cuff, ECG Leads, O2 sat monitor, IV sites Other Sites: HEATHER, Epidural Last Bowel Movement: 01/27/24 Intake/Output Summary (Last 24 hours) at 01/28/2024 1116 Last data filed at 01/28/2024 0800 Gross per 24 hour Intake 2572.6 ml Output 3905 ml Net -1332.4 ml Relevant medications: Insulin glargine, insulin lispro, reglan, protonix, Kcl (repletion) Anthropometrics: Admit Weight: 95.26 kg Estimated body mass index is 31.01 kg/m?? as calculated from the following: Height as of this encounter: 175.3 cm (5' 9). Weight as of this encounter: 95.3 kg (210 lb). [place] Body Weight (IBW) (kg): 72.73 Wt Readings from Last 10 Encounters: 01/23/24 95.3 kg (210 lb) 12/17/23 95.7 kg (211 lb) 11/29/23 92.2 kg (203 lb 3.2 oz) 12/02/23 90.7 kg (200 lb) 11/27/23 89.3 kg (196 lb 12.8 oz) 11/25/23 90.1 kg (198 lb 9.6 oz) 11/21/23 90.3 kg (199 lb) 11/18/23 90.7 kg (200 lb) 11/15/23 90.3 kg (199 lb) 11/01/23 91.9 kg (202 lb 9.6 oz) Patient Vitals for the past 168 hrs: Weight 01/23/24 0626 95.3 kg (210 lb) Estimated / Assessed Needs: Fluid Requirements: Estimated Fluid Requirement Method: Weight Based Method Weight Based Method: 25 Weight Based Calculation: 2267.5 mL Kcal / K - 2181 Kcal (25 Kcal/Kg - 30 Kcal/Kg) Estimated Protein Needs: 87 g - 109 g (1.2 g/Kg - 1.5 g/Kg) Nutrition intake and intake history / interview: 01/27: Pt with 1.6L NGT output yesterday. K 3.2; repletion ordered. BG of 209 this morning. PN to continue - increasing calories, K and Mag, as well as insulin per d/w diabetes management team. 01/26: TPN cx. Visited pt at bedside. Mauri reported he eats like a horse. Pt reports he normally eats 2 meals/day (breakfast and dinner). He enjoys foods such as breakfast sandwiches (salvadorean muffin, sausage, egg, cheese, butter) and items like steak/pizza/phili cheese steaks for dinner. He also drinks 2 Glucerna/day (chocolate flavor) and takes a daily multivitamin. Mauri endorses recent weightgain (200#-->213#). Per chart, pt has had recent weight gain (possibly related to fluid, edema noted in flowsheets). Mauri also reported that he is takes Creon-24 at home (3-4 pills with meals and 1-2 with snacks); pt confirms he's compliant and takes them with all meals/snacks. Per chart, potassium and phosphorus have been low - both now s/p repletion. NGT output x 24 hours: 730 mL. No data found. Nutrition Focused Physical Exam: Performed (by SONIA 01/26) . Subcutaneous Fat Loss Orbital region: None present Upper arm region (triceps/biceps): None present Thoracic and Lumbar regions (ribs, lower back, and maxillary line): Not assessed Lean Muscle Loss Jehovah'S Witness region (temporalis muscle): None present Clavicle bone region (pectoralis major): None present Dorsal hand (interosseous muscle): None present Shoulder (deltoid): None present Scapular bone region (latissimus dorsi, trapezius muscles): Not assessed Thigh region (quadriceps muscle): None present Posterior calf region (gastrocnemius muscle): None present Fluid Accumulation Fluid Accumulation: Not assessed Malnutrition Diagnosis: Not identified (LANDON Coto J Parenteral Enteral Nutr. 2011; 36(3): 273-83) Nutrition to continue to follow up while inpatient Casandra Briseno RD * Plan of Care - Nina Tipton RN - 01/28/2024 4:48 AM EST OUTCOME EVALUATION NOTE: OUTCOME SUMMARY: Resumed care of pt ~184. Pt hypertensive and reporting chest pain, see details below. 1844: Pt c/o crushing chest pain. HR NSR with frequent PACs and PVCs on telemetry, see scanned tele docs. BP 204/95, paged and to bedside to assess. PRN 10mg IV labetalol provided, see MAR for details. 1856: EKG completed 1899: BP 218/111, 1x 5mg IV hydralazine provided, see MAR. 1912: Troponin and BMP sent 1921: Pt reporting CP subsided. Temp 37.9C, team notified, IV tylenol ordered and provided, see MAY 1934: BP 197/71, 1x 10mg IV hydralazine provided, see MAR. 1 hour repeat troponin sent. 2007: BP 197/71 1x 20mg IV labetalol provided, see MAR. 2019: BP recheck 161/62. 2029: Temp resolving, 37.7C. Remainder of shift, pt monitored NSR on tele with frequent PVC's. Pt with no further c/o chest pains. Additional prn IV labetalol doses were given to treat BP, see MAR. PCEA continued, see MAR. L NGTcontinues on low continuous suction. Midline wound vac w/ no output. Dressing to old HEATHER drain site remains CDI. Krause with AUOP over night. PLAN MOVING FORWARD: Q4hr VS Q4hr I+O's Q4hr BG Krause care Wound vac NGT to low continuous suction TPN via port INDIVIDUALIZED FALL PREVENTION INTERVENTIONS: Patient-specific fall risk factors per assessment: [current deficits]: Generalized weakness, lines/cords, Assistance [level of assistance required for transfers and ambulation]: x2 w/ walker Supervision [direct monitoring required during toileting and ADLs]: hands on Surveillance [continuous indirect monitoring]: telemetry, Spo2, purposeful rounding Patient-specific fall prevention interventions for sensory deficits provided, if applicable: [X] N/A CPG GOAL OUTCOME EVALUATION: * Care Management - Fabian Kang RN - 01/27/2024 10:31 AM EST OFFICE OF CARE MANAGEMENT PROGRESS NOTE LOS: Hospital Day 4 days Chart reviewed, care reviewed with primary team and at interdisciplinary rounds. Medical Decision Maker: Self Financial Decision Maker: Self Functional status prior to admission: Independent Home Environment: Others in the home: alone. Current Living Arrangements: home/apartment/condo. Accessibility Concerns: 1 CLARIBEL. 2 levels. can stay on 1 if need to. DME used at home: none Patient is insured through: Primary Insurance: MEDICARE Payor: MEDICARE / Plan: MEDICARE PART A & B / Product Type: *No Product type* / Secondary Insurance: AARP SUPPLEMENT Last Physical Therapy Recommendation: home with home health with to be determined (01/24/24 9075) Plan for discharge is: Home w/ Services Outpatient Agency/Support Group Needs: None Home Health Services: Registered Nurse, Physical Therapy, Occupational Therapy Agency Referrals: [facility] [address] [place] [address] Transportation: health plan transportation *RCT Barriers to discharge: Global: Denies needs/concerns at this time Plan: Patient is not medically ready related to: s/p whipple. Failed NGT clamp trial yesterday, starting TPN, waiting for ROBF, monitor for HEATHER drain output. Plan going forward is: likely home with VNA when med ready. 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 Nutrition Consult Note Wero Sadler is a 74 y.o. 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 Interval History No data found. Reason for Assessment: TPN, Consult Nutrition Recommendations: Parenteral Nutrition Indications: Need to restrict oral or enteral intake: bowel rest TPN will provide 1201 kcal as 100 g AA, 118 g dextrose, 40 g SMOF lipid in 2.4 L volume and 42 mEq/L Na 12 units of insulin (1:10 insulin to carb ratio per diabetes management team) Monitoring: Daily BMP with Mg and Phos Weekly LFTs and TG - order for triglycerides pended Daily Weights I was able to discuss plan with provider Wilton Moore MD . Current Nutrition Regimen: Active Orders Diet Sips and Chips (Give Meds) Frequency: Effective Now Number of Occurrences: Until Specified TPN Orders: TPN Medication Recent History (Show up to 3 orders; newest on the left.) Start date and time 01/27/2024 1800 Adult TPN (Custom) [[id number]] Order Status Active Frequency Continuous (TPN) Medications insulin regular human 12 Units Additives adult multivitamin 10 mL adult trace elements Zn-Cu-Mn-Se (Tralement) 1 mL thiamine 100 mg Electrolytes sodium phosphate 30 mmol potassium acetate 70 mEq sodium chloride 60 mEq calcium gluconate 10 mEq magnesium sulfate 16 mEq Dextrose dextrose 70% 118 g Amino Acids amino acid 15% no.5 (Clinisol) 100 g QS Base sterile water 1,267.13 mL Lipid fat emulsion soy/MCT /olive/fish (SMOFlipid) 20% 20% 40 g Energy Contribution Proteins 400 kcal Dextrose 401.27 kcal Lipids 400 kcal Total 1,201.27 kcal Electrolyte Ion Calculated Amount Sodium 100 mEq Potassium 70 mEq Calcium 10 mEq Magnesium 16 mEq Aluminum -- Phosphate 30 mmol Chloride 60 mEq Acetate 154.67 mEq Chloride: Acetate Ratio 0.39 Trace Elements Total Trace Elements 1 mL Copper 0.3 mg Manganese 55 mcg Selenium 60 mcg Zinc 3 mg Other Total Amino Acid 100 g Total Amino Acid/kg 1.05 g/kg Glucose Infusion Rate 0.86 mg/kg/min Osmolarity 837.04 Volume 2,400 mL Rate 100 mL/hr Dosing Weight 95.3 kg Infusion Site Central Total Multi-vitamins 10 mL Assessment: Lab Results Component Value Date NA 137 01/27/2024 NA 135 06/25/2023 K 3.3 (L) 01/27/2024 K 4.0 06/25/2023 CL 101 01/27/2024 CL 96 (L) 06/25/2023 CO2 27 01/27/2024 CO2 25 06/25/2023 BUN 10 01/27/2024 BUN 19 06/25/2023 CREATININE 0.49 (L) 01/27/2024 CREATININE 0.66 (L) 06/25/2023 ESTGFR 106 01/27/2024 ESTGFR 98 06/25/2023 MAGNESIUM 0.78 01/27/2024 CALCIUM 8.0 (L) 01/27/2024 CALCIUM 9.3 06/25/2023 PHOS 2.9 01/27/2024 AST 24 01/27/2024 AST 122 (H) 06/25/2023 ALT 60 (H) 01/27/2024 ALT 200 (H) 06/25/2023 ALKPHOS 124 01/27/2024 ALKPHOS 303 (H) 06/25/2023 BILITOT 0.8 01/27/2024 BILITOT 2.0 (H) 06/25/2023 HA1C 7.0 (H) 01/23/2024 Lab Results Component Value Date POCGLU 149 01/27/2024 POCGLU 155 01/27/2024 POCGLU 162 01/27/2024 POCGLU 139 2024 POCGLU 143 2024 POCGLU 140 2024 Patient Lines/Drains/Airways Status Active Nutritional LDAs Name Placement date Placement time Site Days Naso/Oral Tube 01/23/24 1545 [place] sump left nostril 01/23/24 1545 left nostril 4 PIV 16 gauge cephalic vein (lateral side of arm), left -- -- -- -- Implanted Port 07/05/23 1440 Single Lumen other (see comments) 07/05/23 1440 -- 206 Closed/Suction Drain RLQ Bulb 01/23/24 1600 RLQ 4 Urethral Catheter 01/23/24 0750 100% silicone 14 5 10 01/23/24 0750 -- 4 Oxygen Therapy / Airway Device: None (Room air) Shift Pressure Injury Prevention Occiput: No Injury Thoracic Spine: No Injury Sacral: No Injury Ischial - left: No Injury Ischial - right: No Injury Heel - left: No Injury Heel - right: No Injury Elbow - left: No Injury Elbow - right: No Injury Device Sites: BP Cuff, ECG Leads, O2 sat monitor, IV sites Other Sites: Wound Vac, HEATHER, Epidural Last Bowel Movement: 01/23/24 (Prior to Sx) Intake/Output Summary (Last 24 hours) at 01/27/2024 1033 Last data filed at 01/27/2024 0800 Gross per 24 hour Intake 2226.5 ml Output 2073 ml Net 153.5 ml Relevant medications: 15 units glargine Sliding scale lispro Protonix D5 in 1/2 NS @ 75 mL/hr Micronutrients 10 mEq potassium chloride q1 hour - given 4x today at time of this note 40 mEq potassium chloride tablet - given 1x today at time of this note Anthropometrics: Admit Weight: 95.26 kg Estimated body mass index is 31.01 kg/m?? as calculated from the following: Height as of this encounter: 175.3 cm (5' 9). Weight as of this encounter: 95.3 kg (210 lb). [place] Body Weight (IBW) (kg): 72.73 Wt Readings from Last 10 Encounters: 01/23/24 95.3 kg (210 lb) 12/17/23 95.7 kg (211 lb) 11/29/23 92.2 kg (203 lb 3.2 oz) 12/02/23 90.7 kg (200 lb) 11/27/23 89.3 kg (196 lb 12.8 oz) 11/25/23 90.1 kg (198 lb 9.6 oz) 11/21/23 90.3 kg (199 lb) 11/18/23 90.7 kg (200 lb) 11/15/23 90.3 kg (199 lb) 11/01/23 91.9 kg (202 lb 9.6 oz) Patient Vitals for the past 168 hrs: Weight 01/23/24 0626 95.3 kg (210 lb) Estimated / Assessed Needs: Fluid Requirements: Estimated Fluid Requirement Method: Weight Based Method Weight Based Method: 25 Weight Based Calculation: 2267.5 mL Kcal / K - 2721 Kcal (25 Kcal/Kg - 30 Kcal/Kg) Estimated Protein Needs: 120 g - 141 g (1.7 g/Kg - 2.0 g/Kg) Nutrition intake and intake history / interview: 01/26: TPN cx. Visited pt at bedside. Mauri reported he eats like a horse. Pt reports he normally eats 2 meals/day (breakfast and dinner). He enjoys foods such as breakfast sandwiches (salvadorean muffin, sausage, egg, cheese, butter) and items like steak/pizza/phili cheese steaks for dinner. He also drinks 2 Glucerna/day (chocolate flavor) and takes a daily multivitamin. Mauri endorses recent weightgain (200#-->213#). Per chart, pt has had recent weight gain (possibly related to fluid, edema noted in flowsheets). Mauri also reported that he is takes Creon-24 at home (3-4 pills with meals and 1-2 with snacks); pt confirms he's compliant and takes them with all meals/snacks. Per chart, potassium and phosphorus have been low - both now s/p repletion. NGT output x 24 hours: 730 mL. No data found. Nutrition Focused Physical Exam: Performed (by SC 01/26) . Subcutaneous Fat Loss Orbital region: None present Upper arm region (triceps/biceps): None present Thoracic and Lumbar regions (ribs, lower back, and maxillary line): Not assessed Lean Muscle Loss Jehovah'S Witness region (temporalis muscle): None present Clavicle bone region (pectoralis major): None present Dorsal hand (interosseous muscle): None present Shoulder (deltoid): None present Scapular bone region (latissimus dorsi, trapezius muscles): Not assessed Thigh region (quadriceps muscle): None present Posterior calf region (gastrocnemius muscle): None present Fluid Accumulation Fluid Accumulation: Not assessed Malnutrition Diagnosis: Not identified (LANDON Coto J Parenteral Enteral Nutr. 2011; 36(3): 273-83) Nutrition to continue to follow up while inpatient Soniya Novoa RD * Consult Note - Mila Esposito RN - 01/27/2024 7:44 AM EST Images from the original note were not included. Infiltration/Extravasation Scale Instructions: Strikeout non-applicable grades, highlight the grade which applies to this patient byBOLD lettering and COLOR RED 4. Skin blanched, translucent OR > 50% of limb affected Gross edema > 6 inches in any direction Specific details of infiltration/extravasation Medication infiltrated Potassium Chloride, 0.9% NS Measurement in cm of length and width of affected area---Affected extremity Width: 33 cm; Length: 30 cm Measurement of Circumference in cm of Infiltrated area of affected extremity Arm Circumference 10 cm below AC: 34 cm Medicated treatment given per policy/ order Hyaluronidase Plan for continued monitoring of infiltration/extravasation Name of MD contacted MD Moore 01/26 @ 7081 GLOBAL HUMAN RESOURCES DIRECTOR CARING FOR THIS PATIENT WILL CONTINUE TO MONITOR AND WILL ASSUME CARE, VASCULAR ACCESS WILL NOT FOLLOW THIS EVENT AT THE SIGNING OF THIS NOTE. * Plan of Care - Nina Tipton RN - 01/25/2024 4:53 PM EST OUTCOME EVALUATION NOTE: OUTCOME SUMMARY: Pt is A&Ox4, VSS. Weaned to RA. Phos replacement given per orders. L nare NGT remains on low continuous suction with light/dark brown output. Bowel sounds are hypoactive, with tenderness to RLQ ABD. HEATHER drain with yellow output, see I+O's flowsheet. Pt reports having 2/10 pain to right ABD. PCEAcontinued for pain management, see MAR for details. Epidural dressing remains CDI. No output from wound vac. ABD midline dressing remains CDI. Pt up to the chair this shift and ambulated in the hallways. PLAN MOVING FORWARD: Downgrade Q4 VS Q4 I+O's Q4 BG NGT to low cont. Suction HEATHER drain Krause care Wound vac PCEA INDIVIDUALIZED FALL PREVENTION INTERVENTIONS: Patient-specific fall risk factors per assessment: [current deficits]: lines/cords Assistance [level of assistance required for transfers and ambulation]: x2 w/ rolling walker Supervision [direct monitoring required during toileting and ADLs]: hands on Surveillance [continuous indirect monitoring]: Telemetry, spo2, purposeful rounding Patient-specific fall prevention interventions for sensory deficits provided, if applicable: [X] N/A CPG GOAL OUTCOME EVALUATION: * Consult Note - Dima Yu MSW - 01/25/2024 1:21 PM ESTSummary: Social Work Progress Note Social Work Response to Consult Consult: Community Education Specialist responded to consult regarding need for Advanced Directive Social Work Response: Community Education Specialist visited patient while he was in the ISCU. Patient was friendly and welcoming. Patient also stated that was resting comfortably. Community Education Specialist asked patient if he had an AD and explained the difference between that and personal representation; [facility] has [place] documentation, but no AD on file. However, patient confirmed he has an AD, but did state it was his brother who was his POA. His daughter, Yessi Olivera ([phone]) is noted as being POA. It is uncertain if there are more than one healthcare POAs. Community Education Specialist left with Yessi to confirm. Community Education Specialist left his phone # with her. Follow Up Needed: CARDIAC/VASCULAR SONOGRAPHER to follow up on POA status. MAXI Bello Legal Administrative Assistant, Transmission Specialist Office of Care Management * Plan of Care - Jace Montano RN - 01/25/2024 6:16 AM EST OUTCOME EVALUATION NOTE: OUTCOME SUMMARY: Pt is A&Ox4, NSR with potential RBBB on shift verification with rates in 70s-80s- see scanned tele docs for details. ECG ordered by team to rule out BBB. VS as charted. On RA w/a and 2L-NC while sleeping. Pt's blood sugar remained high, insulin given as ordered-see MAY. L nare NGT continues on LCWS, with light brown output. Hypoactive bowel sounds during assessment, team aware. Last reported BM was 01/22 prior to procedure. AUOP via krause cath. No output from prevena wound vac. Pain managedwith epidural PCEA and scheduled meds-see MAY. Pt resting between care, call mcdonnell within reach. PLAN MOVING FORWARD: Q4VS Q4FS Continue IS use CHG INDIVIDUALIZED FALL PREVENTION INTERVENTIONS: Patient-specific fall risk factors per assessment: [current deficits]: lines, drains, cords, wound vac, blindness, recent surgery, epidural Assistance [level of assistance required for transfers and ambulation]: 2-3 assist (needs help withlines) Supervision [direct monitoring required during toileting and ADLs]: hands on, eyes on Surveillance [continuous indirect monitoring]: ISCU monitoring, tele, pulse ox Patient-specific fall prevention interventions for sensory deficits provided, if applicable: [X] N/A CARE PLAN GOAL OUTCOME EVALUATION: Problem: Fall Injury Risk Goal: Absence of Fall and Fall-Related Injury Outcome: Ongoing (Interventions Implemented as Appropriate) Problem: Adult Inpatient Plan of Care Goal: Plan of Care Review Outcome: Ongoing (Interventions Implemented as Appropriate) Goal: Patient-Specific Goal (Individualized) Outcome: Ongoing (Interventions Implemented as Appropriate) Goal: Absence of Hospital-Acquired Illness or Injury Outcome: Ongoing (Interventions Implemented as Appropriate) Goal: Optimal Comfort and Wellbeing Outcome: Ongoing (Interventions Implemented as Appropriate) Goal: Readiness for Transition of Care Outcome: Ongoing (Interventions Implemented as Appropriate) * Plan of Care - Nina Tipton RN - 01/24/2024 5:26 PM EST OUTCOME EVALUATION NOTE: OUTCOME SUMMARY: Pt is A&Ox4. VSS on RA. NSR monitored on tele. Zahraa off since 8am today, SBP maintained >100.Pt was hypoglycemic this am, BG was 57. x2 cups of orange juice given and IVF switched to D5% + 1/2NS. ART line Dc'd this afternoon. L nare NGT continues on low cont. suction, with light brown output. Absent bowel sounds this am, provider notified. Last reported BM was yesterday prior to surgery. A UOP via krause cath. No output from midline prevena wound vac. Pt up to the chair w/ X3 assist. Ambulated down the hallway w/ PT. PCEA continued, see MAR. patient denies having any pain, but endorses having a sore throat. PLAN MOVING FORWARD: Q4hr VS Q4hr I+O's Q4hr BG Krause care Prevena wound vac HEATHER drain NGT to low continuous suction Flush NGT Q4hrs PCEA INDIVIDUALIZED FALL PREVENTION INTERVENTIONS: Patient-specific fall risk factors per assessment: [current deficits]: lines/cords (NGT, wound vac,krause, ect...) Assistance [level of assistance required for transfers and ambulation]: X2-3 assist to the chair Supervision [direct monitoring required during toileting and ADLs]: hands on Surveillance [continuous indirect monitoring]: telemetry, Spo2, bed/chair alarm, purposeful rounding Patient-specific fall prevention interventions for sensory deficits provided, if applicable: CPG GOAL OUTCOME EVALUATION: * Initial Assessments - Fabian Kang RN - 01/24/2024 12:26 PM EST Office of Care Management Initial Assessment Fabian Kang RN reviewed record and discussed patient with Care Team. Source of Information: Team, bedside nurse, medical record, and Patient Introduced self/reviewed role; services accepted. 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 can not read. can see shadows. No vision in left eye since child saavedra accident. Cancer prostate, colorectal Claudication Colon adenocarcinoma 2009 recieved chemo in [place] Coronary artery disease Coronary artery dissection CPAP (continuous positive airway pressure) dependence CPAP Diabetes treated with medication Diabetes mellitus 07/22/2019 Gastroesophageal reflux High blood pressure Hyperlipidemia Obstructive sleep apnea Status post chemotherapy 2008 colon cancer Stroke 11-24-19 Hospitalizations Within the Past 30 Days: no previous admission in last 30 days Current Decision-Making Capacity: Self Advance Care Planning: Attempt Cardiopulmonary Resuscitation - Inpatient <no information> -Advanced Directive: Yes, not on file Who is your DPOA-HC?: Child (Yessi Olivera [phone]) Current Coping/Education/Information Needs: coping well Current Functional Ability: unable to assess Functional Status Prior to Admission: Independent Prior ADLs & IADLs: Independent with all ADLs & IADLs Home Environment: Others in the home: alone. Current Living Arrangements: home/apartment/condo. Accessibility Concerns:1 CLARIBEL. 2 levels. can stay on 1 if need to. In the last 12 months, was there a time when you were not able to pay the mortgage or rent on time?: No In the past 12 months, how many times have you moved where you were living?: 0 At any time in the past 12 months, were you homeless or living in a chcf (including now)?: No In the past 12 months has the [employer], gas, oil, or water [employer] threatened to shut off services in your home?: No Within the past 12 months, you worried that your food would run out before you got the money to buymore.: Never true Within the past 12 months, the food you bought just didn't last and you didn't have money to get more.: Never true Resource / Environmental Concerns: Resource/Environmental Concerns: none In the past 12 months, has lack of transportation kept you from medical appointments or from getting medications?: No In the past 12 months, has lack of transportation kept you from meetings, work, or from getting things needed for daily living?: No Current DME: none Home Address confirmed as: [address] [place] [id number] Social & Family Supports: All names listed below confirmed with patient as current and correct Extended Emergency Contact Information Primary Emergency Contact: Abby Lynn Mobile Relation: Child Secondary Emergency Contact: damian sadler Mobile Relation: Sibling Current Care Provided by: self Provides Primary Care For: no one Caregiver if needed: none Quality of Family relationships: supportive Community Resources being provided currently: none Behavioral Health History: denied Substance Use/Abuse listed: Social History Tobacco Use Smoking Status Former Current packs/day: 0.00 Average packs/day: 4.0 packs/day for 30.0 years (120.0 ttl pk-yrs) Types: Cigarettes Start date: 1962 Quit date: 1992 Years since quittin.9 Smokeless Tobacco Never In the past year have you used an illegal drug or used a prescription medication for non-medical reasons?: No 0 No problems reported 1-2 Low level 3-5 Moderate level 6-8 Substantial level 9- 10 Severe level In the past year have you had 5 or more drinks a day containing alcohol?: No 0 to 7 points: Low risk 8 to 15 points: Medium risk 16 to 19 points: High risk 20 to 40 points: Addiction likely Health/Prescription Coverage: Primary Insurance: MEDICARE Payor: MEDICARE / Plan: MEDICARE PART A & B / Product Type: *No Product type* / Secondary Insurance: AARP SUPPLEMENT ONLY if patient has Medicare A&B - Does this patient have secondary insurance?: Yes ; Prescription Coverage: Yes Preferred Pharmacy: [id number] - [place], [place] - [address] AT [facility] [address] [phone] [facility] [address] [facility] [address] [facility] [address] [id number] - [place] [address] [facility] [address] [place] [address] [facility] [address] [facility] [phone] [facility] [address] [place] [address] [address] [employer] [facility] [address] [facility] [address] [facility] [place], [place] - [address] [facility] [address] [facility] [address] Status: Patient is a : No Primary Care Provider confirmed: Tristen Hunter MD [phone] Patient/Caregiver Goals of Treatment: home with VNA Potential Needs for Transition of Care: home health care Agency Referrals: The patient has been provided a list of Home Health Agencies/DME vendors which serve their preferred geographic area. A letter describing our affiliations was reviewed with them and they were educated about their right to choose where referrals are placed. Provided patient with [facility] Star Quality Rating handout. They have requested referrals to: [facility] [address] [place] [address] Expected date of discharge: 01/31/2024 Referral routed to the Fiscal Manager for matching with agency/vendor and to provide any required information. Transportation: no concerns Transportation Anticipated: health plan transportation ([facility]) Concerns to be Addressed: denies needs/concerns at this time Assessment: Patient is admitted to surg onc service for whipple Plan going forward: pending progression and PT/OT eval. Likely home with [facility] when med ready. Patient is baseline independent with ambulation and ADLs (use [facility] as transport). Care Management team will continue to follow and assist with discharge planing and coordination of care as indicated. Fabian Kang LICENSED CERTIFIED ORTHOTIST rigging loft mechanic [phone] * Consult Note - Heavenly Martinez APRN - 01/24/2024 10:55 AM EST Diabetes Management Team Inpatient Consult Date of Consultation: 01/24/2024 Consult Requested by: Surgery-Oncology Reason for Consultation: Wero Sadler is a 73 y.o. male with PMH significant for pancreatic headadenocarcinoma, high risk prostate cancer, colon cancer, CAD s/p CABG, CVA with residual blindness,OLGA, HLD, who was admitted on 01/23/2024 currently being treated for pancreatic adenocarcinoma s/p Whipple. We are being consulted to assist with diabetes management and to provide a review of long te rm diabetes care. Diabetes History: Wero Sadler has had diabetes on problem list since 07/24/2019 unclear how long patient reports having DM for 3 years but has word finding difficulty and is confused at times answering to question and then saying no not what I meant . Reports consistently all 3x I ask that takes Tresiba 33U in AM. Has CAD s/p CABG, CVA with residualblindness, and PVD Current outpatient diabetes regimen: Diabetes Provider: PCP Medications: Tresiba 33U AM 3 years per patient, Sliding scale can't think of what sliding scale isuses. Monitoring is done. Phone checks, not sure where at right now. Most recent A1C: Recent Labs 01/23/24 1706 HA1C 7.0* Typical diet is: Breakfast- Cornbeef hash couple eggs Lunch- [place] Supper- Meal on wheels. Typical exercise regimen is Not very active. Can move around Trouble with hypoglycemia every other day per patient Insulin administration site: Abdomen moves sides every other day. Compliance with insulin: Yes Diabetes Complications Status: Eyes: cataracts in problem list. Current blind from stroke Kidneys: None Feet: None Sensory: Diabetic neuropathy Autonomic: None Cardiovascular: CAD s/p CABG, PVD, CVA Last urine protein measurement: Last Kidney function: Lab Results Component Value Date CREATININE 0.71 (L) 01/24/2024 CREATININE 0.66 (L) 06/25/2023 Last lipid panel: Lipid Panel Lab Results Component Value Date CHLPL 151 07/18/2021 HDL 38 07/18/2021 CHOLHDL 4.0 07/18/2021 TRIG 162 07/18/2021 LDLCHOL 81 07/18/2021 Current Hospital Diabetes Care: Medications: Lispro sensitive sliding scale q 4 hrs Monitoring: q 4 hrs Diet: Sips and Chips REVIEW OF SYSTEMS: All 12 systems reviewed and negative except as noted per HPI. 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 can not read. can see shadows. No vision in left eye since child saavedra accident. Cancer prostate, colorectal Claudication Colon adenocarcinoma 2009 recieved chemo in [place] Coronary artery disease Coronary artery dissection CPAP (continuous positive airway pressure) dependence CPAP Diabetes treated with medication Diabetes mellitus 07/22/2019 Gastroesophageal reflux High blood pressure Hyperlipidemia Obstructive sleep apnea Status post chemotherapy 2009 colon cancer Stroke 11-24-19 Current Hospital Medications: insulin lispro 1-4 Units Subcutaneous Q4H MARLEE carvediloL 25 mg Oral Daily sodium chloride 0.9 % (flush) 5 mL Intravenous BID pantoprazole 40 mg Intravenous BID acetaminophen 1,000 mg Intravenous Q6H MARLEE enoxaparin 40 mg Subcutaneous Nightly Neuraxial/Epidural shift total and Settings verification Epidural 2 Times Daily- Neuraxial Shift Total Infusions: dextrose 5% and sodium chloride 0.45% 100 mL/hr (01/24/24 1043) HYDROmorphone (pf) 10 mcg/mL with BUPivacaine (pf) 0.1% in NS 250 mL (01/24/24 0510) PHENYLephrine Stopped (01/24/24 0813) PRN: sodium chloride 0.9 % (flush), naloxone, nalbuphine, sodium chloride 0.9 % (flush), lidocaine, ondansetron, glucose 40% oral geL OR dextrose OR glucagon Allergy: Allergies Allergen Reactions Belinostat Other (See Comments) [...] a dye used during vascular procedure at [facility] in [place]: shaking Has tolerated MRI and CT contrast. Pazopanib Other (See Comments) UGT1A1 Poor Metabolizer. See Clinical Pharmacist Note from 07/04/23 for information. Sacituzumab Govitecan-Hziy Other (See Comments) UGT1A1 Poor Metabolizer. See Clinical Pharmacist Note from 07/04/23 for dosing recommendations. Social history: Social History Tobacco Use Smoking status: Former Current packs/day: 0.00 Average packs/day: 4.0 packs/day for 30.0 years (120.0 ttl pk-yrs) Types: Cigarettes Start date: 1962 Quit date: 1992 Years since quittin.9 Smokeless tobacco: Never Vaping Use Vaping status: Never Used Substance Use Topics Alcohol use: Yes Alcohol/week: 7.0 standard drinks of alcohol Types: 7 Cans of beer per week Drug use: Not Currently Family history: Family History Problem Relation Age of Onset Liver Cancer Mother Diabetes Father Brain Cancer Sister Stomach Cancer Brother Melanoma Brother Uterine Cancer Maternal Grandmother Lung Cancer Maternal Grandfather Lung Cancer Maternal Aunt 36 heavy smoker Vitals BP 105/56 Pulse 75 Temp 36.9 ??C (98.5 ??F) (Oral) Resp 16 Ht 175.3 cm (5' 9) Wt 95.3 kg (210 lb) SpO2 92% BMI 31.01 kg/m?? Physical Exam: Gen: NAD, NG tube in place, appears disorient. Laying in bed comfortably Respiratory: breathing non-labored on RA Abd: Soft, non-tender. Prevena in place, site looks well appearing SKIN: Has bandages on heel of foot (per nursing there prophylactically for wound s/p OR) Extremities: sensation intact, Distal pulses intact Neuro: Blind, disoriented and has word finding difficulty. Will answer question inappropriate and then say not what I meant Labs: Lab Results Component Value Date BUN 17 01/24/2024 BUN 19 06/25/2023 CREATININE 0.71 (L) 01/24/2024 CREATININE 0.66 (L) 06/25/2023 GLUCOSE 86 01/24/2024 GLUCOSE 410 (H) 06/25/2023 ESTGFR 96 01/24/2024 ESTGFR 98 06/25/2023 Lab Results Component Value Date HA1C 7.0 (H) 01/23/2024 No results found for: MICROALBUR Lab Results Component Value Date CHLPL 151 07/18/2021 Lab Results Component Value Date HDL 38 07/18/2021 Lab Results Component Value Date LDLCHOL 81 07/18/2021 Lab Results Component Value Date TRIG 162 07/18/2021 Lab Results Component Value Date CHOLHDL 4.0 07/18/2021 Assessment: Patient is a 73 y.o. years old male with PMH significant for spancreatic head adenocarcinoma, high risk prostate cancer, colon cancer, CAD s/p CABG, CVA with residual blindness, OLGA, HLD, who was admitted on 01/23/2024 currently being treated for pancreatic adenocarcinoma s/p Whipple. , Last A1C was 7.0 Diabetes adequately controlled and complicated by s/p Whipple procedure. Most recent A1C: Recent Labs 01/23/24 1706 HA1C 7.0* Patient reports previously taking 33U of Tresiba at home consistently per patient along with using a sliding scale but could not remember what sliding scale he was using but reports maybe using 2-6U.Insulin need will likely change now that he is s/p Whipple procedure. Currently recommend moderate ISS. If patient begin receiving nutrition by PO or through TF or TPN recommend a 1:10 carb ratio. Currently BG are below 100, but if BG above 150 tomorrow recommend starting insulin glargine 15U dailyfor basal insulin. Plan: 1. Adjust Correction to Moderate ISS 2. When starts eating or addition of tube feeds or TPN recommend 1unit for 10gm of carb meal associated insulin 3. If BG over 150 tomorrow AM recommend starting 15U glargine 4. Diet: Carb counting advance as tolerated per primary 5. Monitoring: Q4H Discharge Considerations: Medications - Outpatient treatment regimen recommendations pending based on the hospital course. Monitoring - continue BG tid ac & hs Diet - low fat/low carb diet Exercise - weight-bearing exercise 30 min/day, as tolerated Thank you for allowing us to provide care for your patient Haroldo Mahajan MD Internal Medicine PGY-2 and Heavenly Martinez APRN Endocrinology Diabetes Management Service Pager: [phone] Weekends please page endocrine security and privacy consultant 70 minutes of this 80 minute visit was spent in counseling on diabetes and treatment plan, reviewing all glucose and insulin data as well as relevant laboratory results with the patient and in the coordination of care on the inpatient unit. * Plan of Care - Jace Montano RN - 01/24/2024 5:40 AM EST OUTCOME EVALUATION NOTE: OUTCOME SUMMARY: Wero arrived from the PACU ~1999. A&Ox4. VSS on RA-2LNC. NSR on tele w/ rates in the 60s-70s-see scanned tele docs. BP maintaining MAP goal above 65 with zahraa gtt in place, see MAR for details.DBP in the 40s overnight, team aware. L ART in place, correlating with cuff pressures. Reporting 0-2/10 pain on abdominal incision. Reporting adequate pain management with scheduled tylenol and with epidural/PCEA infusion, see MAR for details. I/Os: Urethral catheter in place with AUOP. No BM during this shift, last BM 01/22 in am per pt report. NGT in place on LCWS, flushed with water and air per orders. Wound vac maintained on midline incision, no output overnight. L HEATHER to bulb suction. Serosanguinous output. Continuous maintenance fluids infusing as ordered-see MAY AM labs completed. Q4 blood glucoses completed. IS education provided. Pt resting between care. Disk call mcdonnell utilized for visual deficit. Call mcdonnell within reach. ~0530: Vascular access paged to access port. PLAN MOVING FORWARD: Q4 VS Q4 FS Q4 I/Os INDIVIDUALIZED FALL PREVENTION INTERVENTIONS: Patient-specific fall risk factors per assessment: [current deficits]: Art line, IVs, drains, woundvac, weakness, blindness, recent surgery, krause. Assistance [level of assistance required for transfers and ambulation]: Hasn't been OOB Supervision [direct monitoring required during toileting and ADLs]: Hands on, eyes on Surveillance [continuous indirect monitoring]: ISCU monitoring, telemetry, pulse ox. Patient-specific fall prevention interventions for sensory deficits provided, if applicable: [X] N/A CARE PLAN GOAL OUTCOME EVALUATION: * Brief Op Note - Uday Gomes MD - 01/23/2024 4:29 PM EST Brief Operative Note Patient Name: Wero Sadler : [id number] MR#: [id number] Case Date: 01/23/2024 Surgeon: Surgeons and Role: * Tor Balbuena MD - Primary * Uday Gomes MD - Resident - Assisting * Joe Espinosa MD - Assisting Attending Preoperative diagnosis: PANCREAS CANCER Postoperative diagnosis: PANCREAS CANCER Procedure(s) (LRB): @WHIPPLE PROCEDURE (WRVU 52.84) (N/A) PORTAL VEIN REPAIR (WRVU 13.24) @OMENTAL FLAP, INTRA-ABDOMINAL (WRVU 6.54) Modifiers: 80: Urgent Care Physician surgeon Anesthesia: General Findings: - No evidence of metastatic disease - Whipple performed w/ retrocolic, retrogastric B-2 reconstruction - Friable PV w/unavoidable venotomy. ~2L of EBL and portal venorraphy repair - no narrowing. - Negative pancreatic neck margin Complications: None Estimated Blood Loss: 2000 mL* No values recorded between 01/23/2024 8:41 AM and 01/23/2024 4:20 PM* Specimens removed during surgery: ID Type Source Tests Collected by Time Destination 1 : common hepatic artery lymph node Tissue Lymph Node, Gastric SURGICAL PATHOLOGY Tor Balbuena MD 01/23/2024 1116 2 : head of pancreas, duodenum, bile duct, gallbladder, antrum Tissue Pancreas SURGICAL PATHOLOGY Tor Balbuena MD 01/23/2024 1247 A : Blood Blood, Venous TYPE AND SCREEN ([facility]) Tor Balbuena MD 01/23/2024 0851 B : bile culture Tissue Bile Duct TISSUE CULTURE, AEROBIC & ANAEROBIC Tor Balbuena MD 01/23/2024 1054 Fluids: Intraprocedure Crystalloid Total Intake albumin (human) 5% 1000.00 mL Plasmalyte-A 6500.00 mL lactated ringers infusion 1000.00 mL PRBC Volume 987 mL Total Intake 9487 mL Output Urine Output 1079 mL Blood Loss 2000 mL Other Output 250 mL Total Output 3329 mL Net Net Volume 6158 mL PRBCs: 987 mL (See Anesthesia Record/Report for Other Blood Products) Urine Output: 1079 mL Drains: RUQ HEATHER posterior to HJ, anterior to PJ Disposition: awakened from anesthesia, extubated and taken to the recovery room in a stable condition, having suffered no apparent untoward event. Condition: doing well without problems (Please see the Surgical Encounter Summary for any Implant and Specimen details pertinent to this patient.) Surgical Infection Prevention Bundle Used? N/A Uday Gomes MD General Surgery PGY-5 [id number] * Op Note - Tor Balbuena MD - 01/23/2024 8:41 AM EST [facility] Operative Note Patient Name: Wero Sadler : [id number] MR#: [id number] Case Date: 01/23/2024 Surgeon: Surgeons and Role: * Tor Balbuena MD - Primary * Uday Gomes MD - Resident - Assisting * Joe Espinosa MD - Assisting Attending Preoperative diagnosis: PANCREAS CANCER Postoperative diagnosis: PANCREAS CANCER Procedure(s) (LRB): @WHIPPLE PROCEDURE (WRVU 52.84) (N/A) PORTAL VEIN REPAIR (WRVU 13.24) @OMENTAL FLAP, INTRA-ABDOMINAL (WRVU 6.54) Modifiers: 80: Urgent Care Physician surgeon Findings: No evidence for metastatic disease. The liver was very healthy appearing. The initial dissection was somewhat difficult due to his prior distant colectomy surgery. The resection though otherwise went very well until the last step of the operation where we are performing the skeletonization of the SMA and mobilizing the portal vein away from the adjacent pancreatic head. We encountered atear in the lateral and posterior aspect of the portal vein just opposite the splenic vein confluence. A primary repair was too difficult given the extensive bleeding and therefore we placed fibular and Ethicon snow along the portal vein tear in order to temporarily obtain hemostasis so that we could complete the resection, removed the specimen and then set about obtaining both inflow and outflowcontrol with Brandon Vesseloops around the SMV, splenic vein and portal vein. Once this was accomplished full dose heparin was given and then inflow and outflow were occluded to allow us to perform the repair. There was a relatively large 1 cm tear in an oblique fashion along the lateral portal vein and a separate tear posterior to that making the repair somewhat complex. This was accomplished with 5-0 Prolene. Ultimately the repair went quite well and we were able to release the inflow and outflow, reestablish portal venous flow to the liver and hemostasis was excellent. The reconstruction was a retromesenteric and to side Blumgart type pancreaticojejunostomy with bovine pericardial patch pledgets and internalized 5 Samoan pancreatic duct stent. The bile duct was quite dilated measuring about 15 mm in an end to side hepaticojejunostomy anastomosis was created. Finally in order to restore intestinal continuity a defect was created in the transverse mesocolon to the left of the middle colic vessels to allow the jejunum to be brought up in his retromesenteric location into the supracolic abdomen where a [id number], retrogastric Billroth II type gastrojejunostomy was created. The 19 Samoan Kd drain was placed into Morison's pouch and then passed posterior to the bile duct anastomosis and then anterior to the pancreatic anastomosis. The omental pedicle flap created from the falciform ligament was used to cover the right gastric artery and GDA stumps. Anesthesia: General Estimated Blood Loss: 2000 mL Specimens removed during surgery: ID Type Source Tests Collected by Time Destination 1 : common hepatic artery lymph node Tissue Lymph Node, Gastric SURGICAL PATHOLOGY Tor Balbuena MD 01/23/2024 1116 2 : head of pancreas, duodenum, bile duct, gallbladder, antrum Tissue Pancreas SURGICAL PATHOLOGY Tor Balbuena MD 01/23/2024 1247 A : Blood Blood, Venous TYPE AND SCREEN ([facility]) Tor Balbuena MD 01/23/2024 0817 B : bile culture Tissue Bile Duct TISSUE CULTURE, AEROBIC & ANAEROBIC Tor Balbuena MD 01/23/2024 1054 Drains: * No LDAs found * Surgical [...] details pertinent to this patient.) HPI/Surgical Indications: Borderline resectable pancreatic cancer status post modified FOLFIRINOX and SBRT. Procedure Description: Mr. De Anda was identified in the preop holding area. He was then taken to OR 19 where an epidural was placed and confirmed with fluoroscopy. He was then transferred to OR 23 was positioned supine on the operating room table. Monitoring lines and Venodyne boots were placed. Heparin was administered aaron bcutaneously and IV antibiotics (Zosyn) were given. General anesthesia was induced and he was intubated without complication. A Krause catheter, NGT and arterial monitoring lines were placed. A formaltime out procedure was performed pursuant to and in compliance with the [facility] operative policies. His abdomen and lower chest were prepped with Chloraprep and draped with Ioban strips in the usual sterile fashion. The peritoneal cavity was entered through an upper midline laparotomy incision. The Falciform ligament was dissected off the anterior abdominal wall and the vascular pedicle was preserved intact for use later in the case as an omental pedicle flap. PAMELA wound protector was placed to protect the fascia and abdominal wall. The De La Torre retractor was placed for optimal exposure. The findings at exploration are noted above. The liver looked healthy appearing and there were no surface peritoneal or omental nodules. No evidence of metastatic disease. The operation was begun for curative intent. The embryologic plane between the omentum and the anterior leaf of the transverse mesocolon was entered. Dissection was carried distally and proximally along the transverse colon to remove the omentum from the colon and to allow the colonic hepatic flexure and right colon to be completely mobilizedoff the retroperitoneum as described by Yo and Herman. This dissection was somewhat difficult due to his likely prior colectomy surgery with disruption of the natural tissue planes though ultimately were able to nicely dissect down to the gastrocolic trunk. This maneuver allow the middle colic vein to be nicely identified and dissection was carried distally to its insertion with the SMV and gastrocolic trunk. Next, attention was turned to the gastrocolic trunk dissection. Small vessels entering the head/uncinate of the pancreas were ligated across 3-0 silk ties. The right gastroepiploic vein was isolated circumferentially, it from the adjacent pancreatic head/neck and then divided in continuity across 3-0 Silk ties to allow exposure of the infra pancreatic superior mesenteric vein. The venous tributaries were identified. The dissection of the infra pancreatic SMV was performed with direct and careful ligation of individual small venous vessels that entered the SMV. An extended Leandro maneuver was then performed to obtain access to the midline retroperitoneal structures. There was extensive fibrosis between the posterior aspect of the head of the pancreas and the underlying IVC that we are ultimately able to nicely dissect the IVC away from the pancreatic headand overlying duodenum. There were no pathologic appearing peripancreatic lymph nodes. The duodenumand pancreatic head were elevated off the underlying great vessels with exposure of the infra hepatic inferior vena cava and the suprarenal aorta. The gonadal vessels were identified and preserved. There was no palpable aortocaval lymphadenopathy. Next, we returned to the portal dissection. The lesser omentum was incised and dissection carried toward the portahepatis. The coronary vein was exposed and ligated across 3-0 Silk ties. This allowedthe common hepatic artery to come into view. We proceed to completely skeletonize the common hepatic artery with dissection carried distally to identify the right gastric, GDA and proper hepatic. Theright gastric artery was ligated in continuity with 2-0 Silk ties and divided. The GDA was then ligated in continuity with 2-0 Silk ties and an extra 4-0 Prolene suture liagasure on the staying-in side for hemostatic security. With the GDA divided an enlarged but normal appearing hepatic artery lymph node was excised using Harmonic scalpel. This maneuver allowed the underlying portal vein to comeinto view. The proper hepatic artery and confluence of the right and left hepatic artery were exposed with Bipolar electrocautery and the Harmonic Device. Lymph nodes and tissue were swept downward toward the specimen to effectively skeletonize the sarbjit hepatis. With the hepatic arterial anatomy exposed. A cholecystectomy was performed with top-down technique and the cystic duct CBD confluence was exposed. The common hepatic duct was mobilized and prepared for division. It measured 15 mm in diameter.This was divided with a scissors just at the cystic duct insertion. The bile was cultured. The lumen was visible and contained no evidence of tumor at the mucosa. A pediatric Krause was placed within the divided hepatic duct and the balloon was inflated to prevent spillage of bile from the liver during the remainder of the dissection. The supra pancreatic portal vein was exposed and mobilized to the level of the neck of the pancreas. The gastric antrum was prepared for division by dividing the omentum toward the distal greater curvature of the stomach using the Harmonic Device. The right gastroepiploic artery and vein were isolated and divided across 2-0 Silk ties. The stomach was divided with two firings of the Ethicon stapler(blue loads with reinforced staple line). The pancreas neck was prepared for division. Hemostatic 2-0 Silk sutures were placed into the superior and inferior distal margins of the gland. The gland was divided perpendicular to its long axis at the level of the neck with a 10 blade. There was pulsatile bleeding from the [id number]-gs-nyxp of the pancreas. Hemostasis was obtained with needle tip electrocautery. The gland consistency was firm. The pancreatic duct measured 8 mm in size. The lateral aspect of the portal vein was dissected carefully to mobilize the head of the pancreas using bipolar technique. The proximal jejunum was prepared for division. The jejunum was divided using the Ethicon stapler (blue load with staple line reinforcement). The mesentery from this point to the root of the small bowel mesentery was divided using the Harmonic device with 2-0 Silk ties placed on the proximal jejunal mesentery vessels. The proximal jejunum was then advanced retromesenteric (through the defect withthe duodenum used to be) into the right upper quadrant. The retroperitoneal (Uncinte/SMA) vascular dissection was performed next. The pancreatic head and uncinate was from the superior mesenteric vein and its venous tributaries by sharp dissection. The venous tributaries along the SMV were individually exposed, identified and ligated in continuity across 2-0 Silk ties with care to preserve the first jejunal branch. This maneuver and with medial retraction on the SMV/PV allowed the superior mesenteric artery to be identified and exposed beneath. Dissection was carried along the anterolateral aspect of the SMA. Individual small vessels/tissue attempting to separate the adjacent tumor in the head of the pancreas away from the lateral aspect of the portal vein and the under lying SMA. We encountered a tear in the lateral and posterior aspect of the portal vein just opposite the splenic vein confluence. A primary repair was too difficult given the extensive bleeding and therefore we placed fibular and Ethicon snow along the portal vein tear in order to temporarily obtain hemostasis so that we could complete the resection, removed the specimen and then set about obtaining both inflow and outflow control with Brandon Vesseloops around the SMV, splenic vein and portal vein. Once this was accomplished full dose heparin was given and then inflow and outflow were occluded to allowus to perform the repair. There was a relatively large 1 cm tear in an oblique fashion along the lateral portal vein and a separate tear posterior to that making the repair somewhat complex. This wasaccomplished with 5-0 Prolene. Ultimately the repair went quite well and we were able to release the inflow and outflow, reestablish portal venous flow to the liver and hemostasis was excellent. The upper abdomen was irrigated with warm sterile water. Inspection revealed excellent hemostasis. We then set about preparing for the reconstruction phase of operation. The proximal jejunum blind and was then passed beneath the small bowel mesentery, in the defect created where the duodenum used to be, as a retro-mesenteric jejunal reconstruction limb. It was found to lie nicely within the right upper quadrant/Walter's pouch adjacent to both the bile duct in the cut edge of the pancreas. The pancreatic anastomosis was an end-to-side anastomosis as a modified Blumgart pancreaticojejunostomy. Using double armed 2-0 Silk we placed three U-type parenchymal stiches placed down through Bovine Pericardial Strips (anterior pledgets) and then down through the anterior aspect of the pancreatic neck and out the posterior aspect. The stich was then passed through the seromuscular jejunum as a horizontal mattress type stitch, incorporating a posterior strip of Bovine Pericardial strip/pledget to create a posterior layer and then the stich was passed into the posterior aspect of the pancreatic neck and passed up through the pancreatic parenchyma to create the posterior outer layer. Next a pancreaticojejunostomy [id number] anastomosis was created. A small enterotomy was created inthe jejunum directly opposite the location of the pancreatic duct using needle-tip cautery. The jejunal mucosa was everted out of the enterotomy to allow the mucosa to be exposed. Next, interrupted 5-0 PDS sutures were used to create the duct to mucosa anastomosis. The posterior row stitches were tied in place. A 5 Fr pancreatic duct stent (created from a 5 Fr pediatric feeding tube) was passed down into the pancreatic duct for approximately 4 cm. The stent was secured to the anastomosis using the 6 o'clock PDS posterior anastomotic stich. With the anterior outer layer of the duct to mucosa complete we then completed the outer anterior layer by passing the 2-0 silk stiches through the seromuscular jejunum to complete the 'U-stich' as a horizontal mattress stich. By tying down the 2-0 SilkU-type stiches we were able to sandwich the pancreatic parenchyma using the jejunal serosa. The biliary anastomosis was an end to side anastomosis performed using interrupted 5-0 PDS suture according to the technique of Sudhir and Olga. The bile duct lumen measured 15 mm. Once the pancreatic anastomosis and bile duct anastomosis were completed we irrigated the right upper quadrant with additional sterile water prior to placing the surgical drain. A 19 Samoan Kd closed suction drain was placed through a separate stab incision in the right lateral abdomen and positioned to lie in the most dependent portion of the abdomen along the right colic gutter/Morison's pouch lateral to the liver and above gerotas fascia. The foregut reconstruction was a retrocolic rwgs-[id number], Billroth II type, gastrojejunostomy anastomosis. A defect was created in the transverse mesocolon to the left and middle colic vessels to allow the jejunum to be brought up as a loop to perform a retrogastric [id number] gastrojejunostomy anastomosis. This was accomplished with the Ethicon stapler (purple load). The common gastroenterotomy was closed in 2 layers with an inner layer of 3-0 PDS Aria stitches. The outer layer was interrupted 3-0 silk Lembert stitches. The anastomosis was found to be widely patent and viable appearing. The preserved pedicled omental flap/falciform ligament was then placed over the GDA and gastric artery stumps in the portal transection bed. The 19 Samoan Kd drain was then passed beneath the bileduct anastomosis and then anterior to the omental pedicle flap to lie anterior to the pancreatic anastomosis-effectively draining both bile duct and pancreatic anastomosis. Preparations were then made for abdominal closure. Sponge counts were performed and reported to me as correct. The abdomen was irrigated with several liters of warm normal saline. Seprafilm (1 sheet)was placed into the abdomen. The midline incision was closed using two #1 looped PDS sutures. The subcutaneous tissues were irrigated with IRRISEPT solution and the skin was closed with jay and covered with a Prevena incisional VAC. The HEATHER drain was secured in place with 2- 0 Prolene and coveredwith a sterile dressing. Mr. Sadler tolerated this procedure exceedingly well. He was extubated in the OR and taken to the recovery room in hemodynamically stable condition. I was present for the procedure from start to finish. 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 Full heparinization was given prior to portal vein repair Reconstruction variables: PJ stent placement: Internalized 5 Fr Pancreatic duct stent. PJ anastomosis type: Two layered duct to mucosa (Blumgart type duct mucosa end-to-side pancreaticojejunostomy) Gastric reconstruction: Retrocolic, retrogastric Billroth II type gastrojejunostomy HEATHER drain placement location: 19 Samoan Kd drain positioned in Morison's pouch, posterior to the bile duct anastomosis and then anterior to the pancreatic anastomosis draining both anastomoses. Tubes: 19 Fr Kd Times: Case start time: 8:30 AM Specimen out time: 1:15 PM Surgery Stop time: 4:30 PM Case duration: 8 hours Attestation: Case Date: 01/23/2024 I was present and I participated during the entire procedure (does not need to include opening and closing). TOR BALBUENA MD 01/23/2024 documented in this encounter Plan of Treatment Upcoming Encounters Date Type Department Care Team (Late st Contact Info) Description 03/24/2024 9:00 AM EST TH Visit (TeleHealth) Radiation Oncology at [address] [phone] Ping Moore PA [facility] [place] [address] 03/26/2024 9:30 AM EST Office Visit Hematology/Oncology at [address] [phone] [address] HEMATOLOGY AND ONCOLOGY [place], [place] [phone] 03/26/2024 9:30 AM EST Infusion Hematology Oncology at [address] [phone] 04/09/2024 9:30 AM EST Office Visit Hematology/Oncology at [address] [phone] Cl Hess MD [facility] [place] [address] HEMATOLOGY AND ONCOLOGY [place], [place] [phone] 04/09/2024 10:00 AM EST Infusion Hematology Oncology at [address] [phone] 04/23/2024 9:30 AM EST Office Visit Hematology/Oncology at [address] [phone] Cl Hess MD [facility] [place] [address] Yessi Renee APRN [address] [place] [address] DR HEM[place]Y [place] [address] 04/23/2024 10:00 AM EST Infusion Hematology Oncology at [address] [phone] 05/18/2024 4:30 PM EDT TH Visit (TeleHealth) [place] [phone] Malachi Rothman MD [facility] [place] [address] Scheduled Orders Name Type Priority Associated Diagnoses Orde r Schedule CBC (with Diff) Lab Routine Malignant neoplasm of head of pancreas Expected: 03/01/2024, Expires: 01/30/2025 Comprehensive metabolic panel Non-fasting Lab Routine Malignant neoplasm of head of pancreas Expected: 03/01/2024 (Approximate), Expires: 01/30/2025 Magnesium Lab Routine Malignant neoplasm of head of pancreas Expected: 03/01/2024, Expires: 01/30/2025 Phosphorus Lab Routine Malignant neoplasm of head of pancreas Expected: 03/01/2024, Expires: 01/30/2025 Prealbumin Lab Routine Malignant neoplasm of head of pancreas Expected: 03/01/2024, Expires: 01/30/2025 documented as of this encounter Procedures Procedure Name Priority Date/Time Associated Diagnosis Comments POC, GLUCOSE Routine 02/01/2024 8:02 AM EST POC, GLUCOSE Routine 02/01/2024 4:18 AM EST CBC (WITH DIFF) Routine 02/01/2024 4:17 AM EST PHOSPHORUS Routine 02/01/2024 4:17 AM EST MAGNESIUM Routine 02/01/2024 4:17 AM EST COMPREHENSIVE METABOLIC PANEL Routine 02/01/2024 4:17 AM EST POC, GLUCOSE [...] POC, GLUCOSE Routine 01/31/2024 7:18 AM EST CBC (WITH DIFF) Routine 01/31/2024 5:03 AM EST PHOSPHORUS Routine 01/31/2024 5:03 AM EST MAGNESIUM Routine 01/31/2024 5:03 AM EST COMPREHENSIVE METABOLIC PANEL Routine 01/31/2024 5:03 AM EST POC, GLUCOSE [...] POC, GLUCOSE Routine 01/30/2024 3:49 AM EST CBC (WITH DIFF) Routine 01/30/2024 3:39 AM EST PHOSPHORUS Routine 01/30/2024 3:39 AM EST MAGNESIUM Routine 01/30/2024 3:39 AM EST COMPREHENSIVE METABOLIC PANEL Routine 01/30/2024 3:39 AM EST POC, GLUCOSE Routine 01/29/2024 11:22 PM EST POC, GLUCOSE Routine 01/29/2024 7:41 PM EST POC, GLUCOSE Routine 01/29/2024 3:55 PM EST POC, GLUCOSE Routine 01/29/2024 12:01 PM EST POC, GLUCOSE Routine 01/29/2024 7:59 AM EST POC, GLUCOSE Routine 01/29/2024 4:10 AM EST CBC (WITH DIFF) Routine 01/29/2024 3:56 AM EST PHOSPHORUS Routine 01/29/2024 3:56 AM EST MAGNESIUM Routine 01/29/2024 3:56 AM EST COMPREHENSIVE METABOLIC PANEL Routine 01/29/2024 3:56 AM EST POC, GLUCOSE Routine 01/28/2024 11:21 PM EST HEMOGRAM Routine 01/28/2024 8:52 PM EST POC, GLUCOSE Routine 01/28/2024 7:30 PM EST POC, GLUCOSE Routine 01/28/2024 3:43 PM EST CBC (WITH DIFF) STAT 01/28/2024 1:04 PM EST POC, GLUCOSE Routine 01/28/2024 12:08 PM EST POC, GLUCOSE Routine 01/28/2024 7:52 AM EST POC, GLUCOSE Routine 01/28/2024 3:53 AM EST CBC (WITH DIFF) Routine 01/28/2024 3:39 AM EST PHOSPHORUS Routine 01/28/2024 3:39 AM EST MAGNESIUM Routine 01/28/2024 3:39 AM EST AMYLASE Routine 01/28/2024 3:39 AM EST COMPREHENSIVE METABOLIC PANEL Routine 01/28/2024 3:39 AM EST POC, GLUCOSE Routine 01/27/2024 11:52 PM EST TROPONIN-T, HIGH SENSITIVITY 1 HOUR PERFORMABLE YASSINE 01/27/2024 8:24 PM EST POC, GLUCOSE Routine 01/27/2024 7:34 PM EST TROPONIN-T, HIGH SENSITIVITY INITIAL PERFORMABLE STAT 01/27/2024 7:13 PM EST TROPONIN - SERIES STAT 01/27/2024 7:1 3 PM EST PHOSPHORUS STAT Add-On 01/27/2024 7:13 PM EST MAGNESIUM STAT Add-On 01/27/2024 7:13 PM EST BASIC METABOLIC PANEL STAT Add-On 01/27/2024 7:13 PM EST EKG 12-LEAD STAT 01/27/2024 6:57 PM EST ASCVD (arteriosclerotic cardiovascular disease) Hx of CABG POC, GLUCOSE Routine 01/27/2024 3:42 PM EST AMYLASE LEVEL BODY FLUID Routine 01/27/2024 3:16 PM EST POC, GLUCOSE Routine 01/27/2024 12:09 PM EST TRIGLYCERIDE LEVEL BODY FLUID Routine 01/27/2024 8:27 AM EST POC, GLUCOSE Routine 01/27/2024 7:[address] ABDOMEN AND PELVIS WWO CONTRAST (GI BLEED) STAT 01/27/2024 3:55 AM EST ABORH RECHECK (PATIENT HISTORY FOUND) Routine 01/27/2024 3:15 AM EST TYPE AND SCREEN ([facility]/CGP/NATO) STAT 01/27/2024 3:15 AM EST POC, GLUCOSE Routine 01/27/2024 3:11 AM EST CBC (WITH DIFF) Routine 01/27/2024 12:48 AM EST TRIGLYCERIDE Add-On 01/27/2024 12:48 AM EST PHOSPHORUS Routine 01/27/2024 12:48 AM EST MAGNESIUM Routine 01/27/2024 12:48 AM EST AMYLASE Routine 01/27/2024 12:48 AM EST COMPREHENSIVE METABOLIC PANEL Routine 01/27/2024 12:48 AM EST POC, GLUCOSE Routine 01/27/2024 12:36 AM EST POC, GLUCOSE Routine 2024 8:03 PM EST POC, GLUCOSE Routine 2024 4:14 PM EST AMYLASE LEVEL BODY FLUID Routine 2024 1:04 PM EST POC, GLUCOSE Routine 2024 11:40 AM EST POC, GLUCOSE Routine 2024 8:20 AM EST POC, GLUCOSE Routine 2024 5:04 AM EST POC, GLUCOSE Routine 2024 12:24 AM EST CBC (WITH DIFF) Routine 2024 12:22 AM EST PHOSPHORUS Routine 2024 12:22 AM EST MAGNESIUM Routine 2024 12:22 AM EST AMYLASE Routine 2024 12:22 AM EST COMPREHENSIVE METABOLIC PANEL Routine 2024 12:22 AM EST POC, GLUCOSE Routine 01/25/2024 8:19 PM EST POC, GLUCOSE Routine 01/25/2024 4:13 PM EST AMYLASE LEVEL BODY FLUID Routine 01/25/2024 2:15 PM EST POC, GLUCOSE Routine 01/25/2024 11:42 AM EST POC, GLUCOSE Routine 01/25/2024 8:20 AM EST GOLD TUBE HOLD STAT 01/25/2024 6:52 AM EST ALANINE AMINOTRANSFERASE Routine 01/25/2024 6:52 AM EST ASPARTATE AMINOTRANSFERASE Routine 01/25/2024 6:52 AM EST POTASSIUM Routine 01/25/2024 6:52 AM EST POC, GLUCOSE Routine 01/25/2024 3:18 AM EST CBC (WITH DIFF) Routine 01/25/2024 12:28 AM EST PHOSPHORUS Routine 01/25/2024 12:28 AM EST MAGNESIUM Routine 01/25/2024 12:28 AM EST AMYLASE Routine 01/25/2024 12:28 AM EST COMPREHENSIVE METABOLIC PANEL Routine 01/25/2024 12:28 AM EST POC, GLUCOSE Routine 01/25/2024 12:05 AM EST EKG 12-LEAD STAT 01/24/2024 9:38 PM EST ASCVD (arteriosclerotic cardiovascular disease) Hx of CABG POC, GLUCOSE Routine 01/24/2024 7:33 PM EST POC, GLUCOSE Routine 01/24/2024 3:49 PM EST AMYLASE LEVEL BODY FLUID Routine 01/24/2024 1:48 PM EST POC, GLUCOSE Routine 01/24/2024 12:08 PM EST POC, GLUCOSE Routine 01/24/2024 9:07 AM EST POC, GLUCOSE Routine 01/24/2024 8:36 AM EST POC, GLUCOSE Routine 01/24/2024 8:07 AM EST POC, GLUCOSE Routine 01/24/2024 6:08 AM EST HC TR PSLD, RED BLOOD CELLS, IRRADIATED Routine 01/24/2024 4:07 AM EST ASCVD (arteriosclerotic cardiovascular disease) POC, GLUCOSE Routine 01/24/2024 4:01 AM EST HC TR PSLD, RED BLOOD CELLS, IRRADIATED STAT 01/24/2024 2:07 AM EST ASCVD (arteriosclerotic cardiovascular disease) POC, GLUCOSE Routine 01/24/2024 1:40 AM EST POC, GLUCOSE Routine 01/24/2024 12:10 AM EST CBC (WITH DIFF) Routine 01/24/2024 12:01 AM EST PHOSPHORUS Routine 01/24/2024 12:01 AM EST MAGNESIUM Routine 01/24/2024 12:01 AM EST AMYLASE Routine 01/24/2024 12:01 AM EST COMPREHENSIVE METABOLIC PANEL Routine 01/24/2024 12:01 AM EST BLOOD GAS ARTERIAL POC Routine 4 6:59 PM EST POC, GLUCOSE Routine 01/23/2024 6:56 PM EST HC PARTIAL THROMBOPLASTIN TIME Routine 01/23/2024 5:06 PM EST PROTHROMBIN TIME STAT 01/23/2024 5:06 PM EST FIBRINOGEN STAT 01/23/2024 5:06 PM EST CBC (WITH DIFF) STAT 01/23/2024 5:06 PM EST PHOSPHORUS STAT 01/23/2024 5:06 PM EST MAGNESIUM STAT 01/23/2024 5:06 PM EST HEMOGLOBIN A1C STAT 01/23/2024 5:06 PM EST COMPREHENSIVE METABOLIC PANEL STAT 01/23/2024 5:06 PM EST POC, GLUCOSE Routine 01/23/2024 5:02 PM EST BLOOD GAS ARTERIAL POC Routine 4 3:20 PM EST BLOOD GAS ARTERIAL POC Routine 4 2:04 PM EST BLOOD GAS ARTERIAL POC Routine 4 12:34 PM EST POC, GLUCOSE Routine 01/23/2024 11:47 AM EST SURGICAL PATHOLOGY Routine 01/23/2024 11:16 AM EST ANAEROBIC CULTURE Routine 01/23/2024 10:54 AM EST TISSUE CULTURE, AEROBIC & ANAEROBIC Routine 01/23/2024 10:54 AM EST TISSUE CULTURE Routine 01/23/2024 10:54 AM EST BLOOD GAS ARTERIAL POC Routine 10:43 AM EST POC, GLUCOSE Routine 01/23/2024 9:27 AM EST ABORH RECHECK (PATIENT HISTORY FOUND) Routine 01/23/2024 8:51 AM EST TYPE AND SCREEN ([facility]/CGP/NATO) Routine 01/23/2024 8:51 AM EST BLOOD GAS ARTERIAL POC Routine 8:28 AM EST Omental Flap, Intra-Abdominal ([id number]) 01/23/2024 7:52 AM EST [facility] Unlisted Procedure Vascular Surgery ([id number]) 01/23/2024 7:52 AM EST [facility] Part Remv Panc, Prox+Remv Duod+Anast ([id number]) 01/23/2024 7:52 AM EST [facility] XR FLUORO NO RAD <1HR - OR USE Routine 01/23/2024 7:50 AM EST POC, GLUCOSE Routine 01/23/2024 6:58 AM EST documented in this encounter Results * Transfuse RBC (02/01/2024 9:38 AM EST) Tor Balbuena MD NURSING TREATMENT ORDERABLES - BLOOD ADMIN * Transfuse RBC (02/01/2024 9:38 AM EST) Tor Balbuena MD NURSING TREATMENT ORDERABLES - BLOOD ADMIN * POC, GLUCOSE (02/01/2024 8:02 AM EST) [facility] Signature Glucometer, POC 189 65 - 199 mg/dL 02/01/2024 8:02 AM EST [facility] Comment:Supplemental ranges: <140 mg/dL before meals <180 mg/dL all other times of the day. Blood CAPILLARY BLOOD / Unknown 02/01/2024 8:02 AM EST 02/01/2024 8:03 AM EST Tor Balbuena MD POINT OF CARE TEST ORDERABLES Performing Organization Address [facility] Co de Phone Number [facility] [place] [address] * POC, GLUCOSE (02/01/2024 4:18 AM EST) Glucometer, POC 149 65 - 199 mg/dL 02/01/2024 4:19 AM EST [facility] Comment:Supplemental ranges: <140 mg/dL before meals <180 mg/dL all other times of the day. Blood CAPILLARY BLOOD / Unknown 02/01/2024 4:18 AM EST 02/01/2024 4:19 AM EST Tor Balbuena MD POINT OF CARE TEST ORDERABLES Performing Organization Address [facility] [[email or web address]] de Phone Number [facility] [place] [address] * Magnesium (02/01/2024 4:17 AM EST) Magnesium 0.98 0.69 - 1.07 mMol/L 02/01/2024 4:58 AM EST [facility] Blood VENOUS BLOOD SPECIMEN / Unknown Venipuncture / Unknown 02/01/2024 4:17 AM EST 02/01/2024 4:28 AM EST Tor Balbuena MD CHEMISTRY ORDERABL ES Performing Organization Address City/[facility] Co de Phone Number [facility] [place] [address] * Phosphorus (02/01/2024 4:17 AM EST) Phosphorus 3.8 2.5 - 4.5 mg/dL 02/01/2024 4:58 AM EST [facility] Blood VENOUS BLOOD SPECIMEN / Unknown Venipuncture / Unknown 02/01/2024 4:17 AM EST 02/01/2024 4:28 AM EST Tor Balbuena MD CHEMISTRY ORDERABL ES [facility] [place] [place] [address] * (ABNORMAL) Comprehensive metabolic panel (02/01/2024 4:17 AM EST) Glucose 151 65 - 199 mg/dL 02/01/2024 4:58 AM [facility] Comment:Glucose Concentratio n >=200 mg/dL plus symptoms is consistent with Diabetes Mellitus. Blood Urea Nitrogen 20 10 - 20 mg/dL 02/01/2024 4:58 AM [facility] Creatinine 0.71(L) 0.80 - 1.50 mg/dL 02/01/2024 4:58 AM [facility] Sodium 133(L) 135 - 145 mMol/L 02/01/2024 4:58 AM [facility] Potassium 4.3 3.5 - 5.0 mMol/L 02/01/2024 4:58 AM [facility] Chloride 98 98 - 107 mMol/L 02/01/2024 4:58 AM [facility] Carbon Dioxide 27 22 - 31 mMol/L 02/01/2024 4:58 AM [facility] Anion Gap 8 5 - 15 mMol/L 02/01/2024 4:58 AM [facility] Calcium 8.7 8.5 - 10.5 mg/dL 02/01/2024 4:58 AM [facility] Protein, Total 6.0(L) 6.1 - 8.0 g/dL 02/01/2024 4:58 AM [facility] Albumin 3.3 3.2 - 5.2 g/dL 02/01/2024 4:58 AM [facility] Aspartate Aminotransferase 28 <=39 unit/L 02/01/2024 4:58 AM [facility] Alanine Aminotransferase 39 0 - 55 unit/L 02/01/2024 4:58 AM [facility] Alkaline Phosphatase 151(H) 40 - 130 unit/L 02/01/2024 4:58 AM EST [facility] Bilirubin, Total 1.1 <=1.3 mg/dL 02/01/2024 4:58 AM EST [facility] Est Glomerular Filtration Rate - Male 95 mL/min/1. 73 m?? 02/01/2024 4:58 AM EST [facility] Comment: This patient's estimated GFR [...] 4:17 AM EST 02/01/2024 4:28 AM EST Tor Balbuena MD CHEMISTRY ORDERABL ES [facility] [place] [address] * (ABNORMAL) CBC (with Diff) (02/01/2024 4:17 AM EST) White Blood Cell 6.27 4.00 - 9.50 x10(3)/mc L 02/01/2024 4:35 AM EST [facility] Red Blood Cell 2.98(L) 4.58 - 5.54 x10(6)/mc L 02/01/2024 4:35 AM EST [facility] Hemoglobin 9.2(L) 13.7 - 16.5 g/dL 02/01/2024 4:35 AM EST [facility] Hematocrit 27.5(L) 40.5 - 48.5 % 02/01/2024 4:35 AM [facility] Mean Cell Volume 92.3 82.9 - 93.1 fL 02/01/2024 4:35 AM [facility] Mean Cell Hemoglobin 30.9 27.5 - 32.1 pg 02/01/2024 4:35 AM [facility] Mean Cell Hemoglobin Concentration 33.5 32.0 - 35.7 g/dL 02/01/2024 4:35 AM [facility] Platelet 289 145 - 357 x10(3)/mc L 02/01/2024 4:35 AM [facility] Mean Platelet Volume 8.8 7.6 - 12.9 fL 02/01/2024 4:35 AM [facility] RDW Standard Deviation 48.6(H) 36.0 - 45.0 fL 02/01/2024 4:35 AM [facility] RDW coefficient of variation 14.5(H) 11.4 - 13.8 % 02/01/2024 4:35 AM [facility] NRBC% auto 0.0 % 02/01/2024 4:35 AM [facility] NRBC Absolute <0.01 <0.01 x10(3)/mc L 02/01/2024 4:35 AM [facility] Neutrophil % 73.4 % 02/01/2024 4:35 AM [facility] Neutrophil Absolute (ANC) - Automated 4.61 1.70 - 6.10 x10(3)/mc L 02/01/2024 4:35 AM [facility] Lymph % 11.2 % 02/01/2024 4:35 AM [facility] Lymph Absolute 0.70(L) 0.90 - 3.20 x10(3)/mc L 02/01/2024 4:35 AM [facility] Monocyte % 9.1 % 02/01/2024 4:35 AM [facility] Monocyte Absolute 0.57 0.30 - 0.90 x10(3)/mc L 02/01/2024 4:35 AM EST [facility] Eos % 4.8 % 02/01/2024 4:35 AM [facility] Eos Absolute 0.30 0.00 - 0.40 x10(3)/mc L 02/01/2024 4:35 AM EST [facility] Basophil % 0.2 % 02/01/2024 4:35 AM [facility] Baso Absolute <0.04 0.00 - 0.10 x10(3)/mc L 02/01/2024 4:35 AM [facility] Immature Gran % 1.3 % 4:35 AM [facility] Immature Gran Absolute 0.08(H) 0.00 - 0.04 x10(3)/mc L 02/01/2024 4:35 AM [facility] Blood VENOUS BLOOD SPECIMEN / Unknown Venipuncture / Unknown 02/01/2024 4:17 AM EST 02/01/2024 4:29 AM EST Tor Balbuena MD HEMATOLOGY [place] [address] * POC, GLUCOSE (02/01/2024 12:12 AM EST) [facility] Signature Glucometer, POC 138 65 - 199 mg/dL 02/01/2024 12:13 AM EST [facility] Comment:Supplemental ranges: <140 mg/dL before meals <180 mg/dL all other times of the day. Blood CAPILLARY BLOOD / Unknown 02/01/2024 12:12 AM EST 02/01/2024 12:13 AM EST Tor Balbuena MD POINT OF CARE TEST ORDERABLES [facility] [place] [address] * Prepare RBC (01/31/2024 11:07 PM EST) Status Information Transfused [facility] Product Identification RBC [facility] Unit Number [id number] [facility] Product Code A5912D18 [facility] Unit Blood Type OPOS [facility] Specimen Expiration Date [facility] Volulme 286 [facility] Issue [facility] / Time [facility] BLOOD BANK LABORATORY Blood 01/31/2024 8:1 0 AM EST Tor Balbuena MD BLOOD BANK PRODUCT ORDERABLES Performing Organization Address City/[facility]/ZIP Co de Phone Number [facility] BLOOD [place] [address] * POC, GLUCOSE (01/31/2024 10:14 PM EST) Glucometer, POC 136 65 - 199 mg/dL 01/31/2024 10:15 PM EST [facility] Comment:Supplemental ranges: <140 mg/dL before meals <180 mg/dL all other times of the day. Blood CAPILLARY BLOOD / Unknown 01/31/2024 10:14 PM EST 01/31/2024 10:15 PM EST Tor Balbuena MD POINT OF CARE TEST ORDERABLES Performing Organization Address City/[facility]/ZIP Co de Phone Number [facility] [place] [address] * (ABNORMAL) POC, GLUCOSE (01/31/2024 8:04 PM EST) Glucometer, POC 265(H) 65 - 199 mg/dL 01/31/2024 8:04 PM EST [facility] Comment:Supplemental ranges: <140 mg/dL before meals <180 mg/dL all other times of the day. Blood CAPILLARY BLOOD / Unknown 01/31/2024 8:04 PM EST 01/31/2024 8:04 PM EST Tor Balbuena MD POINT OF CARE TEST ORDERABLES Performing Organization Address [facility]/[place] Co de Phone Number [facility] [place] [address] * (ABNORMAL) POC, GLUCOSE (01/31/2024 4:00 PM EST) Glucometer, POC 269(H) 65 - 199 mg/dL 01/31/2024 4:00 PM EST [facility] Comment:Supplemental ranges: <140 mg/dL before meals <180 mg/dL all other times of the day. Blood CAPILLARY BLOOD / Unknown 01/31/2024 4:00 PM EST 01/31/2024 4:01 PM EST Tor Balbuena MD POINT OF CARE TEST ORDERABLES Performing Organization Address [facility]/[place] Co de Phone Number [facility] [place] [address] * POC, GLUCOSE (01/31/2024 11:30 AM EST) Glucometer, POC 183 65 - 199 mg/dL 01/31/2024 11:30 AM EST [facility] Comment:Supplemental ranges: <140 mg/dL before meals <180 mg/dL all other times of the day. Blood CAPILLARY BLOOD / Unknown 01/31/2024 11:30 AM EST 01/31/2024 11:30 AM EST Tor Balbuena MD POINT OF CARE TEST ORDERABLES Performing Organization Address City/[facility]/[place] Co de Phone Number [facility] [place] [address] * ABORH RECHECK (PATIENT HISTORY FOUND) (01/31/2024 8:21 AM EST) ABORH Recheck Progress Complete 01/31/2024 10:01 AM EST [facility] BLOOD BANK LABORATORY Blood VENOUS BLOOD SPECIMEN / Unknown Venipuncture / Unknown 01/31/2024 8:21 AM EST 01/31/2024 8:31 AM EST Tor Balbuena MD BLOOD BANK LAB ORD ERABLES [facility] [place]OD [place] [address] * Type and screen ([facility]) (01/31/2024 8:21 AM EST) ABORH Type O POSITIVE 01/31/2024 9:20 AM EST [facility] BLOOD BANK LABORATORY PATIENT HISTORY Found 01/31/2024 9:20 AM EST [facility] BLOOD BANK LABORATORY Expires at [id number] on: 02-03-2024 01/31/2024 9:20 AM EST [facility] BLOOD BANK LABORATORY ANTIBODY SCREEN AUTOMATED Negative 01/31/2024 9:20 AM EST [facility] BLOOD BANK LABORATORY T&S only valid at [facility] 01/31/2024 9:20 AM EST [facility] BLOOD BANK LABORATORY Blood VENOUS BLOOD SPECIMEN / Unknown Venipuncture / Unknown 01/31/2024 8:21 AM EST 01/31/2024 8:31 AM EST Narrative [facility] BLOOD BANK LABORATORY - 01/31/2024 9:20 AM EST This Type and Screen result is only valid at the [facility] Tor Balbuena MD BLOOD BANK LAB ORD ERABLES Performing Organization Address City/[facility]/ZIP Co de Phone Number [facility] [place]OD [place] [address] * POC, GLUCOSE (01/31/2024 7:18 AM EST) Pathologist [facility] Glucometer, POC 156 65 - 199 mg/dL 01/31/2024 7:19 AM EST [facility] Comment:Supplemental ranges: <140 mg/dL before meals <180 mg/dL all other times of the day. Blood CAPILLARY BLOOD / Unknown 01/31/2024 7:18 AM EST 01/31/2024 7:19 AM EST Tor Balbuena MD POINT OF CARE TEST ORDERABLES [facility] [place] [address] * Magnesium (01/31/2024 5:03 AM EST) Magnesium 1.01 0.69 - 1.07 mMol/L 01/31/2024 5:47 AM EST [facility] Blood VENOUS BLOOD SPECIMEN / Unknown Venipuncture / Unknown 01/31/2024 5:03 AM EST 01/31/2024 5:14 AM EST Tor Balbuena MD CHEMISTRY ORDERABL ES Performing Organization Address City/[facility]/ZIP Co de Phone Number [facility] [place] [address] * (ABNORMAL) Phosphorus (01/31/2024 5:03 AM EST) Pathologist [facility] Phosphorus 4.7(H) 2.5 - 4.5 mg/dL 01/31/2024 5:47 AM [facility] Blood VENOUS BLOOD SPECIMEN / Unknown Venipuncture / Unknown 01/31/2024 5:03 AM EST 01/31/2024 5:14 AM EST Tor Balbuena MD CHEMISTRY ORDERABL ES Performing Organization Address City/[facility]/ZIP Co de Phone Number [facility] [place] [address] * (ABNORMAL) Comprehensive metabolic panel (01/31/2024 5:03 AM EST) Pathologist [facility] Glucose 154 65 - 199 mg/dL 01/31/2024 5:47 AM EST [facility] Comment:Glucose Concentratio n >=200 mg/dL plus symptoms is consistent with Diabetes Mellitus. Blood Urea Nitrogen 20 10 - 20 mg/dL 01/31/2024 5:47 AM EST [facility] Creatinine 0.73(L) 0.80 - 1.50 mg/dL 01/31/2024 5:47 AM [facility] Sodium 136 135 - 145 mMol/L 01/31/2024 5:47 AM [facility] Potassium 4.0 3.5 - 5.0 mMol/L 01/31/2024 5:47 AM [facility] Chloride 99 98 - 107 mMol/L 01/31/2024 5:47 AM [facility] Carbon Dioxide 27 22 - 31 mMol/L 01/31/2024 5:47 AM [facility] Anion Gap 10 5 - 15 mMol/L 01/31/2024 5:47 AM [facility] Calcium 8.7 8.5 - 10.5 mg/dL 01/31/2024 5:47 AM [facility] Protein, Total 5.7(L) 6.1 - 8.0 g/dL 01/31/2024 5:47 AM [facility] Albumin 3.1(L) 3.2 - 5.2 g/dL 01/31/2024 5:47 AM [facility] Aspartate Aminotransferase 27 <=39 unit/L 01/31/2024 5:47 AM [facility] Alanine Aminotransferase 34 0 - 55 unit/L 01/31/2024 5:47 AM [facility] Alkaline Phosphatase 130 40 - 130 unit/L 01/31/2024 5:47 AM [facility] Bilirubin, Total 0.8 <=1.3 mg/dL 01/31/2024 5:47 AM [facility] Est Glomerular Filtration Rate - Male 94 mL/min/1. 73 m?? 01/31/2024 5:47 AM [facility] Comment: This patient's estimated [...] SPECIMEN / Unknown Venipuncture / Unknown 01/31/2024 5:03 AM EST 01/31/2024 5:14 AM EST Tor Balbuena MD CHEMISTRY ORDERABL ES [facility] [place] [address] * (ABNORMAL) CBC (with Diff) (01/31/2024 5:03 AM EST) White Blood Cell 5.92 4.00 - 9.50 x10(3)/mc L 01/31/2024 5:26 AM [facility] Red Blood Cell 2.54(L) 4.58 - 5.54 x10(6)/mc L 01/31/2024 5:26 AM [facility] Hemoglobin 7.6(L) 13.7 - 16.5 g/dL 01/31/2024 5:26 AM [facility] Hematocrit 23.3(L) 40.5 - 48.5 % 01/31/2024 5:26 AM [facility] Mean Cell Volume 91.7 82.9 - 93.1 fL 01/31/2024 5:26 AM [facility] Mean Cell Hemoglobin 29.9 27.5 - 32.1 pg 01/31/2024 5:26 AM [facility] Mean Cell Hemoglobin Concentration 32.6 32.0 - 35.7 g/dL 01/31/2024 5:26 AM [facility] Platelet 263 145 - 357 x10(3)/mc L 01/31/2024 5:26 AM [facility] Mean Platelet Volume 9.0 7.6 - 12.9 fL 01/31/2024 5:26 AM [facility] RDW Standard Deviation 47.4(H) 36.0 - 45.0 fL 01/31/2024 5:26 AM [facility] RDW coefficient of variation 14.3(H) 11.4 - 13.8 % 01/31/2024 5:26 AM [facility] NRBC% auto 0.0 % 01/31/2024 5:26 AM [facility] NRBC Absolute <0.01 <0.01 x10(3)/mc L 01/31/2024 5:26 AM [facility] Neutrophil % 74.2 % 01/31/2024 5:26 AM [facility] Neutrophil Absolute (ANC) - Automated 4.39 1.70 - 6.10 x10(3)/mc L 01/31/2024 5:26 AM [facility] Lymph % 11.0 % 01/31/2024 5:26 AM [facility] Lymph Absolute 0.65(L) 0.90 - 3.20 x10(3)/mc L 01/31/2024 5:26 AM [facility] Monocyte % 9.6 % 01/31/2024 5:26 AM [facility] Monocyte Absolute 0.57 0.30 - 0.90 x10(3)/mc L 01/31/2024 5:26 AM [facility] Eos % 3.0 % 01/31/2024 5:26 AM [facility] Eos Absolute 0.18 0.00 - 0.40 x10(3)/mc L 01/31/2024 5:26 AM [facility] Basophil % 0.3 % 01/31/2024 5:26 AM [facility] Baso Absolute <0.04 0.00 - 0.10 x10(3)/mc L 01/31/2024 5:26 AM [facility] Immature Gran % 1.9 % 5:26 AM [facility] Immature Gran Absolute 0.11(H) 0.00 - 0.04 x10(3)/mc L 01/31/2024 5:26 AM [facility] Blood VENOUS BLOOD SPECIMEN / Unknown Venipuncture / Unknown 01/31/2024 5:03 AM EST 01/31/2024 5:14 AM EST Tor Balbuena MD HEMATOLOGY ORDERAB LES Performing Organization Address [facility]/[place] Co de Phone Number [facility] [place] [address] * POC, GLUCOSE (01/31/2024 3:43 AM EST) Glucometer, POC 152 65 - 199 mg/dL 01/31/2024 3:44 AM EST [facility] Comment:Supplemental ranges: <140 mg/dL before meals <180 mg/dL all other times of the day. Blood CAPILLARY BLOOD / Unknown 01/31/2024 3:43 AM EST 01/31/2024 3:44 AM EST Tor Balbuena MD POINT OF CARE TEST ORDERABLES Performing Organization Address [facility] [[email or web address]] de Phone Number [facility] [place] [address] * POC, GLUCOSE (01/31/2024 12:38 AM EST) Glucometer, POC 135 65 - 199 mg/dL 01/31/2024 12:39 AM EST [facility] Comment:Supplemental ranges: <140 mg/dL before meals <180 mg/dL all other times of the day. Blood CAPILLARY BLOOD / Unknown 01/31/2024 12:38 AM EST 01/31/2024 12:39 AM EST Tor Balbuena MD POINT OF CARE TEST ORDERABLES Performing Organization Address [facility]/[place] Co de Phone Number [facility] [place] [address] * Scan Doc: Lab (01/31/2024 12:00 AM EST) Narrative 01/31/2024 12:00 AM EST Ordered by an unspecified provider. Scanning Provider MEDIA MGR SCAN EXT O RDR/RSLT * POC, GLUCOSE (01/30/2024 7:32 PM EST) Glucometer, POC 150 65 - 199 mg/dL 01/30/2024 7:32 PM EST [facility] Comment:Supplemental ranges: <140 mg/dL before meals <180 mg/dL all other times of the day. Blood CAPILLARY BLOOD / Unknown 01/30/2024 7:32 PM EST 01/30/2024 7:32 PM EST Tor Balbuena MD POINT OF CARE TEST ORDERABLES Performing Organization Address City/[facility]/[place] Co de Phone Number [facility] [place] [address] * POC, GLUCOSE (01/30/2024 4:49 PM EST) Glucometer, POC 181 65 - 199 mg/dL 01/30/2024 4:50 PM EST [facility] Comment:Supplemental ranges: <140 mg/dL before meals <180 mg/dL all other times of the day. Blood CAPILLARY BLOOD / Unknown 01/30/2024 4:49 PM EST 01/30/2024 4:50 PM EST Tor Balbuena MD POINT OF CARE TEST ORDERABLES Performing Organization Address [facility]/[place] Co de Phone Number [facility] [place] [address] * (ABNORMAL) POC, GLUCOSE (01/30/2024 1:46 PM EST) Glucometer, POC 224(H) 65 - 199 mg/dL 01/30/2024 1:46 PM EST [facility] Comment:Supplemental ranges: <140 mg/dL before meals <180 mg/dL all other times of the day. Blood CAPILLARY BLOOD / Unknown 01/30/2024 1:46 PM EST 01/30/2024 1:46 PM EST Tor Balbuena MD POINT OF CARE TEST ORDERABLES [facility] [place] [address] * (ABNORMAL) POC, GLUCOSE (01/30/2024 11:20 AM EST) Glucometer, POC 256(H) 65 - 199 mg/dL 01/30/2024 11:20 AM EST [facility] Comment:Supplemental ranges: <140 mg/dL before meals <180 mg/dL all other times of the day. Blood CAPILLARY BLOOD / Unknown 01/30/2024 11:20 AM EST 01/30/2024 11:20 AM EST Tor Balbuena MD POINT OF CARE TEST ORDERABLES Performing Organization Address [facility]/[place] Co de Phone Number [facility] [place] [address] * (ABNORMAL) POC, GLUCOSE (01/30/2024 7:37 AM EST) Glucometer, POC 211(H) 65 - 199 mg/dL 01/30/2024 7:38 AM EST [facility] Comment:Supplemental ranges: <140 mg/dL before meals <180 mg/dL all other times of the day. Blood CAPILLARY BLOOD / Unknown 01/30/2024 7:37 AM EST 01/30/2024 7:38 AM EST Tor Balbuena MD POINT OF CARE TEST ORDERABLES [facility] [place] [address] * (ABNORMAL) POC, GLUCOSE (01/30/2024 3:49 AM EST) Glucometer, POC 203(H) 65 - 199 mg/dL 01/30/2024 3:50 AM EST [facility] Comment:Supplemental ranges: <140 mg/dL before meals <180 mg/dL all other times of the day. Blood CAPILLARY BLOOD / Unknown 01/30/2024 3:49 AM EST 01/30/2024 3:50 AM EST Tor Balbuena MD POINT OF CARE TEST ORDERABLES [facility] [place] [address] * Magnesium (01/30/2024 3:39 AM EST) Magnesium 0.95 0.69 - 1.07 mMol/L 01/30/2024 4:22 AM EST [facility] Blood VENOUS BLOOD SPECIMEN / Unknown Venipuncture / Unknown 01/30/2024 3:39 AM EST 01/30/2024 3:51 AM EST Tor Balbuena MD CHEMISTRY ORDERABL ES Performing Organization Address [facility]/[place] Co de Phone Number [facility] [place] [address] * Phosphorus (01/30/2024 3:39 AM EST) Phosphorus 3.4 2.5 - 4.5 mg/dL 01/30/2024 4:22 AM EST [facility] Blood VENOUS BLOOD SPECIMEN / Unknown Venipuncture / Unknown 01/30/2024 3:39 AM EST 01/30/2024 3:51 AM EST Tor Balbuena MD CHEMISTRY ORDERABL ES Performing Organization Address City/[facility]/ZIP Co de Phone Number [facility] [place] [address] * (ABNORMAL) Comprehensive metabolic panel (01/30/2024 3:39 AM EST) Glucose 190 65 - 199 mg/dL 01/30/2024 4:22 AM EST [facility] Comment:Glucose Concentratio n >=200 mg/dL plus symptoms is consistent with Diabetes Mellitus. Blood Urea Nitrogen 15 10 - 20 mg/dL 01/30/2024 4:22 AM EST [facility] Creatinine 0.55(L) 0.80 - 1.50 mg/dL 01/30/2024 4:22 AM [facility] Sodium 136 135 - 145 mMol/L 01/30/2024 4:22 AM [facility] Potassium 3.8 3.5 - 5.0 mMol/L 01/30/2024 4:22 AM [facility] Chloride 98 98 - 107 mMol/L 01/30/2024 4:22 AM [facility] Carbon Dioxide 26 22 - 31 mMol/L 01/30/2024 4:22 AM [facility] Anion Gap 12 5 - 15 mMol/L 01/30/2024 4:22 AM [facility] Calcium 8.6 8.5 - 10.5 mg/dL 01/30/2024 4:22 AM [facility] Protein, Total 5.6(L) 6.1 - 8.0 g/dL 01/30/2024 4:22 AM [facility] Albumin 3.0(L) 3.2 - 5.2 g/dL 01/30/2024 4:22 AM [facility] Aspartate Aminotransferase 18 <=39 unit/L 01/30/2024 4:22 AM [facility] Alanine Aminotransferase 30 0 - 55 unit/L 01/30/2024 4:22 AM [facility] Alkaline Phosphatase 123 40 - 130 unit/L 01/30/2024 4:22 AM [facility] Bilirubin, Total 0.8 <=1.3 mg/dL 01/30/2024 4:22 AM [facility] Est Glomerular Filtration Rate - Male 103 mL/min/1. 73 m?? 01/30/2024 4:22 AM [facility] Comment: This patient's estimated [...] BLOOD SPECIMEN / Unknown Venipuncture / Unknown 01/30/2024 3:39 AM EST 01/30/2024 3:51 AM EST Tor Balbuena MD CHEMISTRY ORDERABL ES [facility] [place] [address] * (ABNORMAL) CBC (with Diff) (01/30/2024 3:39 AM EST) White Blood Cell 7.34 4.00 - 9.50 x10(3)/mc L 01/30/2024 3:57 AM [facility] Red Blood Cell 2.62(L) 4.58 - 5.54 x10(6)/mc L 01/30/2024 3:57 AM [facility] Hemoglobin 8.1(L) 13.7 - 16.5 g/dL 01/30/2024 3:57 AM [facility] Hematocrit 24.3(L) 40.5 - 48.5 % 01/30/2024 3:57 AM [facility] Mean Cell Volume 92.7 82.9 - 93.1 fL 01/30/2024 3:57 AM [facility] Mean Cell Hemoglobin 30.9 27.5 - 32.1 pg 01/30/2024 3:57 AM [facility] Mean Cell Hemoglobin Concentration 33.3 32.0 - 35.7 g/dL 01/30/2024 3:57 AM [facility] Platelet 221 145 - 357 x10(3)/mc L 01/30/2024 3:57 AM [facility] Mean Platelet Volume 9.1 7.6 - 12.9 fL 01/30/2024 3:57 AM [facility] RDW Standard Deviation 48.7(H) 36.0 - 45.0 fL 01/30/2024 3:57 AM [facility] RDW coefficient of variation 14.5(H) 11.4 - 13.8 % 01/30/2024 3:57 AM [facility] NRBC% auto 0.0 % 01/30/2024 3:57 AM [facility] NRBC Absolute <0.01 <0.01 x10(3)/mc L 01/30/2024 3:57 AM [facility] Neutrophil % 80.2 % 01/30/2024 3:57 AM [facility] Neutrophil Absolute (ANC) - Automated 5.88 1.70 - 6.10 x10(3)/mc L 01/30/2024 3:57 AM [facility] Lymph % 8.7 % 01/30/2024 3:57 AM [facility] Lymph Absolute 0.64(L) 0.90 - 3.20 x10(3)/mc L 01/30/2024 3:57 AM [facility] Monocyte % 8.0 % 01/30/2024 3:57 AM [facility] Monocyte Absolute 0.59 0.30 - 0.90 x10(3)/mc L 01/30/2024 3:57 AM [facility] Eos % 1.6 % 01/30/2024 3:57 AM [facility] Eos Absolute 0.12 0.00 - 0.40 x10(3)/mc L 01/30/2024 3:57 AM [facility] Basophil % 0.1 % 01/30/2024 3:57 AM [facility] Baso Absolute <0.04 0.00 - 0.10 x10(3)/mc L 01/30/2024 3:57 AM [facility] Immature Gran % 1.4 % 3:57 AM [facility] Immature Gran Absolute 0.10(H) 0.00 - 0.04 x10(3)/mc L 01/30/2024 3:57 AM EST [facility] Blood VENOUS BLOOD SPECIMEN / Unknown Venipuncture / Unknown 01/30/2024 3:39 AM EST 01/30/2024 3:51 AM EST Tor Balbuena MD HEMATOLOGY ORDERAB LES Performing Organization Address City/[facility]/ZIP Co de Phone Number [facility] [place] [address] * POC, GLUCOSE (01/29/2024 11:22 PM EST) Glucometer, POC 159 65 - 199 mg/dL 01/29/2024 11:22 PM EST [facility] Comment:Supplemental ranges: <140 mg/dL before meals <180 mg/dL all other times of the day. Blood CAPILLARY BLOOD / Unknown 01/29/2024 11:22 PM EST 01/29/2024 11:22 PM EST Tor Balbuena MD POINT OF CARE TEST ORDERABLES Performing Organization Address [facility]/[place] Co de Phone Number [facility] [place] [address] * POC, GLUCOSE (01/29/2024 7:41 PM EST) Glucometer, POC 184 65 - 199 mg/dL 01/29/2024 7:41 PM EST [facility] Comment:Supplemental ranges: <140 mg/dL before meals <180 mg/dL all other times of the day. Blood CAPILLARY BLOOD / Unknown 01/29/2024 7:41 PM EST 01/29/2024 7:41 PM EST Tor Balbuena MD POINT OF CARE TEST ORDERABLES Performing Organization Address [facility]/ZIP Co de Phone Number [facility] [place] [address] * POC, GLUCOSE (01/29/2024 3:55 PM EST) Glucometer, POC 194 65 - 199 mg/dL 01/29/2024 3:55 PM EST [facility] Comment:Supplemental ranges: <140 mg/dL before meals <180 mg/dL all other times of the day. Blood CAPILLARY BLOOD / Unknown 01/29/2024 3:55 PM EST 01/29/2024 3:55 PM EST Tor Balbuena MD POINT OF CARE TEST ORDERABLES Performing Organization Address City/[facility]/[place] Co de Phone Number [facility] [place] [address] * POC, GLUCOSE (01/29/2024 12:01 PM EST) Glucometer, POC 181 65 - 199 mg/dL 01/29/2024 12:01 PM EST [facility] Comment:Supplemental ranges: <140 mg/dL before meals <180 mg/dL all other times of the day. Blood CAPILLARY BLOOD / Unknown 01/29/2024 12:01 PM EST 01/29/2024 12:01 PM EST Tor Balbuena MD POINT OF CARE TEST ORDERABLES Performing Organization Address [facility]/[place] Co de Phone Number [facility] [place] [address] * (ABNORMAL) POC, GLUCOSE (01/29/2024 7:59 AM EST) Glucometer, POC 206(H) 65 - 199 mg/dL 01/29/2024 8:00 AM EST [facility] Comment:Supplemental ranges: <140 mg/dL before meals <180 mg/dL all other times of the day. Blood CAPILLARY BLOOD / Unknown 01/29/2024 7:59 AM EST 01/29/2024 8:00 AM EST Tor Balbuena MD POINT OF CARE TEST ORDERABLES [facility] [place] [address] * (ABNORMAL) POC, GLUCOSE (01/29/2024 4:10 AM EST) Glucometer, POC 200(H) 65 - 199 mg/dL 01/29/2024 4:10 AM EST [facility] Comment:Supplemental ranges: <140 mg/dL before meals <180 mg/dL all other times of the day. Blood CAPILLARY BLOOD / Unknown 01/29/2024 4:10 AM EST 01/29/2024 4:11 AM EST Tor Balbuena MD POINT OF CARE TEST ORDERABLES Performing Organization Address [facility] Co de Phone Number [facility] [place] [address] * Magnesium (01/29/2024 3:56 AM EST) Magnesium 0.86 0.69 - 1.07 mMol/L 01/29/2024 4:41 AM EST [facility] Blood VENOUS BLOOD SPECIMEN / Unknown Venipuncture / Unknown 01/29/2024 3:56 AM EST 01/29/2024 4:12 AM EST Tor Balbuena MD CHEMISTRY ORDERABL ES Performing Organization Address [facility] Co de Phone Number [facility] [place] [address] * Phosphorus (01/29/2024 3:56 AM EST) Phosphorus 3.2 2.5 - 4.5 mg/dL 01/29/2024 4:41 AM EST [facility] Blood VENOUS BLOOD SPECIMEN / Unknown Venipuncture / Unknown 01/29/2024 3:56 AM EST 01/29/2024 4:12 AM EST Tor Balbuena MD CHEMISTRY ORDERABL ES [facility] [place] [address] * (ABNORMAL) Comprehensive metabolic panel (01/29/2024 3:56 AM EST) Glucose 205(H) 65 - 199 mg/dL 01/29/2024 4:41 AM [facility] Comment:Glucose Concentratio n >=200 mg/dL plus symptoms is consistent with Diabetes Mellitus. Blood Urea Nitrogen 12 10 - 20 mg/dL 01/29/2024 4:41 AM [facility] Creatinine 0.50(L) 0.80 - 1.50 mg/dL 01/29/2024 4:41 AM [facility] Sodium 136 135 - 145 mMol/L 01/29/2024 4:41 AM [facility] Potassium 3.6 3.5 - 5.0 mMol/L 01/29/2024 4:41 AM [facility] Chloride 99 98 - 107 mMol/L 01/29/2024 4:41 AM [facility] Carbon Dioxide 30 22 - 31 mMol/L 01/29/2024 4:41 AM [facility] Anion Gap 7 5 - 15 mMol/L 01/29/2024 4:41 AM [facility] Calcium 8.5 8.5 - 10.5 mg/dL 01/29/2024 4:41 AM [facility] Protein, Total 5.4(L) 6.1 - 8.0 g/dL 01/29/2024 4:41 AM [facility] Albumin 2.8(L) 3.2 - 5.2 g/dL 01/29/2024 4:41 AM [facility] Aspartate Aminotransferase 17 <=39 unit/L 01/29/2024 4:41 AM [facility] Alanine Aminotransferase 39 0 - 55 unit/L 01/29/2024 4:41 AM [facility] Alkaline Phosphatase 121 40 - 130 unit/L 01/29/2024 4:41 AM [facility] Bilirubin, Total 0.7 <=1.3 mg/dL 01/29/2024 4:41 AM EST [facility] Est Glomerular Filtration Rate - Male 106 mL/min/1. 73 m?? 01/29/2024 4:41 AM [facility] Comment: This patient's estimated [...] BLOOD SPECIMEN / Unknown Venipuncture / Unknown 01/29/2024 3:56 AM EST 01/29/2024 4:12 AM EST Tor Balbuena MD CHEMISTRY ORDERABL ES [facility] [place] [address] * (ABNORMAL) CBC (with Diff) (01/29/2024 3:56 AM EST) White Blood Cell 7.65 4.00 - 9.50 x10(3)/mc L 01/29/2024 4:17 AM [facility] Red Blood Cell 2.66(L) 4.58 - 5.54 x10(6)/mc L 01/29/2024 4:17 AM EST [facility] Hemoglobin 8.2(L) 13.7 - 16.5 g/dL 01/29/2024 4:17 AM [facility] Hematocrit 24.8(L) 40.5 - 48.5 % 01/29/2024 4:17 AM [facility] Mean Cell Volume 93.2(H) 82.9 - 93.1 fL 01/29/2024 4:17 AM [facility] Mean Cell Hemoglobin 30.8 27.5 - 32.1 pg 01/29/2024 4:17 AM [facility] Mean Cell Hemoglobin Concentration 33.1 32.0 - 35.7 g/dL 01/29/2024 4:17 AM [facility] Platelet 184 145 - 357 x10(3)/mc L 01/29/2024 4:17 AM [facility] Mean Platelet Volume 9.2 7.6 - 12.9 fL 01/29/2024 4:17 AM [facility] RDW Standard Deviation 49.5(H) 36.0 - 45.0 fL 01/29/2024 4:17 AM [facility] RDW coefficient of variation 14.6(H) 11.4 - 13.8 % 01/29/2024 4:17 AM [facility] NRBC% auto 0.0 % 01/29/2024 4:17 AM [facility] NRBC Absolute <0.01 <0.01 x10(3)/mc L 01/29/2024 4:17 AM [facility] Neutrophil % 84.3 % 01/29/2024 4:17 AM [facility] Neutrophil Absolute (ANC) - Automated 6.45(H) 1.70 - 6.10 x10(3)/mc L 01/29/2024 4:17 AM [facility] Lymph % 5.9 % 01/29/2024 4:17 AM [facility] Lymph Absolute 0.45(L) 0.90 - 3.20 x10(3)/mc L 01/29/2024 4:17 AM [facility] Monocyte % 7.5 % 01/29/2024 4:17 AM [facility] Monocyte Absolute 0.57 0.30 - 0.90 x10(3)/mc L 01/29/2024 4:17 AM [facility] Eos % 1.4 % 01/29/2024 4:17 AM EST [facility] Eos Absolute 0.11 0.00 - 0.40 x10(3)/mc L 01/29/2024 4:17 AM EST [facility] Basophil % 0.1 % 01/29/2024 4:17 AM EST [facility] Baso Absolute <0.04 0.00 - 0.10 x10(3)/mc L 01/29/2024 4:17 AM EST [facility] Immature Gran % 0.8 % 4:17 AM EST [facility] Immature Gran Absolute 0.06(H) 0.00 - 0.04 x10(3)/mc L 01/29/2024 4:17 AM [facility] Blood VENOUS BLOOD SPECIMEN / Unknown Venipuncture / Unknown 01/29/2024 3:56 AM EST 01/29/2024 4:12 AM EST Tor Balbuena MD HEMATOLOGY ORDERAB LES [facility] [place] [address] * POC, GLUCOSE (01/28/2024 11:21 PM EST) Glucometer, POC 191 65 - 199 mg/dL 01/28/2024 11:21 PM EST [facility] Comment:Supplemental ranges: <140 mg/dL before meals <180 mg/dL all other times of the day. Blood CAPILLARY BLOOD / Unknown 01/28/2024 11:21 PM EST 01/28/2024 11:21 PM EST Tor Balbuena MD POINT OF CARE TEST ORDERABLES [facility] [place] [address] * (ABNORMAL) Hemogram (01/28/2024 8:52 PM EST) White Blood Cell 7.33 4.00 - 9.50 x10(3)/mc L 01/28/2024 9:06 PM [facility] Red Blood Cell 2.63(L) 4.58 - 5.54 x10(6)/mc L 01/28/2024 9:06 PM [facility] Hemoglobin 8.2(L) 13.7 - 16.5 g/dL 01/28/2024 9:06 PM [facility] Hematocrit 24.3(L) 40.5 - 48.5 % 01/28/2024 9:06 PM [facility] Mean Cell Volume 92.4 82.9 - 93.1 fL 01/28/2024 9:06 PM [facility] Mean Cell Hemoglobin 31.2 27.5 - 32.1 pg 01/28/2024 9:06 PM [facility] Mean Cell Hemoglobin Concentration 33.7 32.0 - 35.7 g/dL 01/28/2024 9:06 PM [facility] Platelet 175 145 - 357 x10(3)/mc L 01/28/2024 9:06 PM [facility] Mean Platelet Volume 8.9 7.6 - 12.9 fL 01/28/2024 9:06 PM [facility] RDW Standard Deviation 49.1(H) 36.0 - 45.0 fL 01/28/2024 9:06 PM [facility] RDW coefficient of variation 14.5(H) 11.4 - 13.8 % 01/28/2024 9:06 PM [facility] NRBC% auto 0.0 % 01/28/2024 9:06 PM [facility] NRBC Absolute <0.01 <0.01 x10(3)/mc L 01/28/2024 9:06 PM [facility] Blood VENOUS BLOOD SPECIMEN / Unknown Venipuncture / Unknown 01/28/2024 8:52 PM EST 01/28/2024 9:02 PM EST Tor Balbuena MD HEMATOLOGY ORDERAB LES Performing Organization Address [facility] Co de Phone Number [facility] [place] [address] * POC, GLUCOSE (01/28/2024 7:30 PM EST) Glucometer, POC 194 65 - 199 mg/dL 01/28/2024 7:30 PM EST [facility] Comment:Supplemental ranges: <140 mg/dL before meals <180 mg/dL all other times of the day. Blood CAPILLARY BLOOD / Unknown 01/28/2024 7:30 PM EST 01/28/2024 7:30 PM EST Tor Balbuena MD POINT OF CARE TEST ORDERABLES Performing Organization Address [facility] Co de Phone Number [facility] [place] [address] * POC, GLUCOSE (01/28/2024 3:43 PM EST) [facility] Signature Glucometer, POC 191 65 - 199 mg/dL 01/28/2024 3:43 PM EST [facility] Comment:Supplemental ranges: <140 mg/dL before meals <180 mg/dL all other times of the day. Blood CAPILLARY BLOOD / Unknown 01/28/2024 3:43 PM EST 01/28/2024 3:43 PM EST Tor Balbuena MD POINT OF CARE TEST ORDERABLES Performing Organization Address [facility] Co de Phone Number [facility] [place] [address] * (ABNORMAL) CBC (with Diff) (01/28/2024 1:04 PM EST) [facility] White Blood Cell 7.98 4.00 - 9.50 x10(3)/mc L 01/28/2024 1:42 PM EST [facility] Red Blood Cell 2.63(L) 4.58 - 5.54 x10(6)/mc L 01/28/2024 1:42 PM [facility] Hemoglobin 8.2(L) 13.7 - 16.5 g/dL 01/28/2024 1:42 PM [facility] Hematocrit 24.3(L) 40.5 - 48.5 % 01/28/2024 1:42 PM [facility] Mean Cell Volume 92.4 82.9 - 93.1 fL 01/28/2024 1:42 PM [facility] Mean Cell Hemoglobin 31.2 27.5 - 32.1 pg 01/28/2024 1:42 PM [facility] Mean Cell Hemoglobin Concentration 33.7 32.0 - 35.7 g/dL 01/28/2024 1:42 PM [facility] Platelet 167 145 - 357 x10(3)/mc L 01/28/2024 1:42 PM [facility] Mean Platelet Volume 9.4 7.6 - 12.9 fL 01/28/2024 1:42 PM [facility] RDW Standard Deviation 48.3(H) 36.0 - 45.0 fL 01/28/2024 1:42 PM [facility] RDW coefficient of variation 14.4(H) 11.4 - 13.8 % 01/28/2024 1:42 PM [facility] NRBC% auto 0.3 % 01/28/2024 1:42 PM [facility] NRBC Absolute 0.02(H) <0.01 x10(3)/mc L 01/28/2024 1:42 PM [facility] Neutrophil % 82.5 % 01/28/2024 1:42 PM [facility] Neutrophil Absolute (ANC) - Automated 6.58(H) 1.70 - 6.10 x10(3)/mc L 01/28/2024 1:42 PM [facility] Lymph % 5.9 % 01/28/2024 1:42 PM [facility] Lymph Absolute 0.47(L) 0.90 - 3.20 x10(3)/mc L 01/28/2024 1:42 PM EST [facility] Monocyte % 8.9 % 01/28/2024 1:42 PM EST [facility] Monocyte Absolute 0.71 0.30 - 0.90 x10(3)/mc L 01/28/2024 1:42 PM EST [facility] Eos % 1.6 % 01/28/2024 1:42 PM EST [facility] Eos Absolute 0.13 0.00 - 0.40 x10(3)/mc L 01/28/2024 1:42 PM EST [facility] Basophil % 0.1 % 01/28/2024 1:42 PM EST [facility] Baso Absolute <0.04 0.00 - 0.10 x10(3)/mc L 01/28/2024 1:42 PM EST [facility] Immature Gran % 1.0 % 1:42 PM EST [facility] Immature Gran Absolute 0.08(H) 0.00 - 0.04 x10(3)/mc L 01/28/2024 1:42 PM EST [facility] Blood VENOUS BLOOD SPECIMEN / Unknown Venipuncture / Unknown 01/28/2024 1:04 PM EST 01/28/2024 1:30 PM EST Tor Balbuena MD HEMATOLOGY ORDERAB LES [facility] [place] [address] * (ABNORMAL) POC, GLUCOSE (01/28/2024 12:08 PM EST) [facility] Signature Glucometer, POC 206(H) 65 - 199 mg/dL 01/28/2024 12:08 PM EST [facility] Comment:Supplemental ranges: <140 mg/dL before meals <180 mg/dL all other times of the day. Blood CAPILLARY BLOOD / Unknown 01/28/2024 12:08 PM EST 01/28/2024 12:08 PM EST Tor Balbuena MD POINT OF CARE TEST ORDERABLES Performing Organization Address City/[facility]/ZIP Co de Phone Number [facility] [place] [address] * (ABNORMAL) POC, GLUCOSE (01/28/2024 7:52 AM EST) Glucometer, POC 209(H) 65 - 199 mg/dL 01/28/2024 7:53 AM EST [facility] Comment:Supplemental ranges: <140 mg/dL before meals <180 mg/dL all other times of the day. Blood CAPILLARY BLOOD / Unknown 01/28/2024 7:52 AM EST 01/28/2024 7:53 AM EST Tor Balbuena MD POINT OF CARE TEST ORDERABLES Performing Organization Address [facility] Co de Phone Number [facility] [place] [address] * POC, GLUCOSE (01/28/2024 3:53 AM EST) Glucometer, POC 185 65 - 199 mg/dL 01/28/2024 3:53 AM EST [facility] Comment:Supplemental ranges: <140 mg/dL before meals <180 mg/dL all other times of the day. Blood CAPILLARY BLOOD / Unknown 01/28/2024 3:53 AM EST 01/28/2024 3:53 AM EST Tor Balbuena MD POINT OF CARE TEST ORDERABLES Performing Organization Address City/[facility]/ZIP Co de Phone Number [facility] [place] [address] * Magnesium (01/28/2024 3:39 AM EST) Magnesium 0.81 0.69 - 1.07 mMol/L 01/28/2024 4:13 AM EST [facility] Blood VENOUS BLOOD SPECIMEN / Unknown Venipuncture / Unknown 01/28/2024 3:39 AM EST 01/28/2024 3:43 AM EST Tor Balbuena MD CHEMISTRY ORDERABL ES Performing Organization Address City/[facility]/ZIP Co de Phone Number [facility] [place] [address] * Phosphorus (01/28/2024 3:39 AM EST) Phosphorus 2.9 2.5 - 4.5 mg/dL 01/28/2024 4:13 AM [facility] Blood VENOUS BLOOD SPECIMEN / Unknown Venipuncture / Unknown 01/28/2024 3:39 AM EST 01/28/2024 3:43 AM EST Tor Balbuena MD CHEMISTRY ORDERABL ES Performing Organization Address City/[facility] Co de Phone Number [facility] [place] [address] * (ABNORMAL) Comprehensive metabolic panel (01/28/2024 3:39 AM EST) Glucose 169 65 - 199 mg/dL 01/28/2024 4:13 AM [facility] Comment:Glucose Concentratio n >=200 mg/dL plus symptoms is consistent with Diabetes Mellitus. Blood Urea Nitrogen 9(L) 10 - 20 mg/dL 01/28/2024 4:13 AM [facility] Creatinine 0.51(L) 0.80 - 1.50 mg/dL 01/28/2024 4:13 AM [facility] Sodium 137 135 - 145 mMol/L 01/28/2024 4:13 AM [facility] Potassium 3.2(L) 3.5 - 5.0 mMol/L 01/28/2024 4:13 AM [facility] Chloride 100 98 - 107 mMol/L 01/28/2024 4:13 AM [facility] Carbon Dioxide 29 22 - 31 mMol/L 01/28/2024 4:13 AM [facility] Anion Gap 8 5 - 15 mMol/L 01/28/2024 4:13 AM [facility] Calcium 8.3(L) 8.5 - 10.5 mg/dL 01/28/2024 4:13 AM [facility] Protein, Total 4.9(L) 6.1 - 8.0 g/dL 01/28/2024 4:13 AM [facility] Albumin 2.9(L) 3.2 - 5.2 g/dL 01/28/2024 4:13 AM [facility] Aspartate Aminotransferase 19 <=39 unit/L 01/28/2024 4:13 AM [facility] Alanine Aminotransferase 45 0 - 55 unit/L 01/28/2024 4:13 AM [facility] Alkaline Phosphatase 123 40 - 130 unit/L 01/28/2024 4:13 AM [facility] Bilirubin, Total 0.8 <=1.3 mg/dL 01/28/2024 4:13 AM [facility] Est Glomerular Filtration Rate - Male 105 mL/min/1. 73 m?? 01/28/2024 4:13 AM [facility] Comment: This patient's estimated [...] 3:39 AM EST 01/28/2024 3:43 AM EST Tor Balbuena MD CHEMISTRY ORDERABL ES [facility] [place] [address] * (ABNORMAL) CBC (with Diff) (01/28/2024 3:39 AM EST) White Blood Cell 6.91 4.00 - 9.50 x10(3)/mc L 01/28/2024 3:52 AM [facility] Red Blood Cell 2.61(L) 4.58 - 5.54 x10(6)/mc L 01/28/2024 3:52 AM [facility] Hemoglobin 8.1(L) 13.7 - 16.5 g/dL 01/28/2024 3:52 AM [facility] Hematocrit 24.0(L) 40.5 - 48.5 % 01/28/2024 3:52 AM [facility] Mean Cell Volume 92.0 82.9 - 93.1 fL 01/28/2024 3:52 AM [facility] Mean Cell Hemoglobin 31.0 27.5 - 32.1 pg 01/28/2024 3:52 AM [facility] Mean Cell Hemoglobin Concentration 33.8 32.0 - 35.7 g/dL 01/28/2024 3:52 AM [facility] Platelet 160 145 - 357 x10(3)/mc L 01/28/2024 3:52 AM [facility] Mean Platelet Volume 9.1 7.6 - 12.9 fL 01/28/2024 3:52 AM [facility] RDW Standard Deviation 48.2(H) 36.0 - 45.0 fL 01/28/2024 3:52 AM [facility] RDW coefficient of variation 14.2(H) 11.4 - 13.8 % 01/28/2024 3:52 AM [facility] NRBC% auto 0.0 % 01/28/2024 3:52 AM [facility] NRBC Absolute <0.01 <0.01 x10(3)/mc L 01/28/2024 3:52 AM [facility] Neutrophil % 81.1 % 01/28/2024 3:52 AM [facility] Neutrophil Absolute (ANC) - Automated 5.60 1.70 - 6.10 x10(3)/mc L 01/28/2024 3:52 AM [facility] Lymph % 7.8 % 01/28/2024 3:52 AM [facility] Lymph Absolute 0.54(L) 0.90 - 3.20 x10(3)/mc L 01/28/2024 3:52 AM [facility] Monocyte % 8.4 % 01/28/2024 3:52 AM [facility] Monocyte Absolute 0.58 0.30 - 0.90 x10(3)/mc L 01/28/2024 3:52 AM [facility] Eos % 2.0 % 01/28/2024 3:52 AM [facility] Eos Absolute 0.14 0.00 - 0.40 x10(3)/mc L 01/28/2024 3:52 AM [facility] Basophil % 0.1 % 01/28/2024 3:52 AM [facility] Baso Absolute <0.04 0.00 - 0.10 x10(3)/mc L 01/28/2024 3:52 AM [facility] Immature Gran % 0.6 % 3:52 AM [facility] Immature Gran Absolute 0.04 0.00 - 0.04 x10(3)/mc L 01/28/2024 3:52 AM [facility] Blood VENOUS BLOOD SPECIMEN / Unknown Venipuncture / Unknown 01/28/2024 3:39 AM EST 01/28/2024 3:43 AM EST Tor Balbuena MD HEMATOLOGY ORDERAB LES [facility] [place] [address] * (ABNORMAL) Amylase (01/28/2024 3:39 AM EST) Pathologist [facility] Amylase 9(L) 28 - 100 unit/L 01/28/2024 4:13 AM EST [facility] Blood VENOUS BLOOD SPECIMEN / Unknown Venipuncture / Unknown 01/28/2024 3:39 AM EST 01/28/2024 3:43 AM EST Tor Balbuena MD CHEMISTRY ORDERABL ES Performing Organization Address City/[facility]/ZIP Co de Phone Number [facility] [place] [address] * POC, GLUCOSE (01/27/2024 11:52 PM EST) [facility] Glucometer, POC 197 65 - 199 mg/dL 01/27/2024 11:52 PM EST [facility] Comment:Supplemental ranges: <140 mg/dL before meals <180 mg/dL all other times of the day. Blood CAPILLARY BLOOD / Unknown 01/27/2024 11:52 PM EST 01/27/2024 11:52 PM EST Tor Balbuena MD POINT OF CARE TEST ORDERABLES Performing Organization Address City/[facility]/ZIP Co de Phone Number [facility] [place] [address] * Troponin-T, High Sensitivity 1 Hour (01/27/2024 8:24 PM EST) [facility] Troponin-T, High Sensitivity 17 <=22 ng/L 01/27/2024 9:01 PM EST [facility] Comment: This patient's troponin T concentration [...] troponin value can be found in the [facility] Test Catalog Troponin - [email or web address] Reference: Fourth [place] Definition of Myocardial Infarction. Journal of the [place] [employer] 2018;72:2940-5732 Troponin-T, HS 1 hr delta 1 ng/L 01/27/2024 9:01 PM EST [facility] Comment:The 1 hour Troponin T delta value is the absolute difference between the Troponin T concentrations of the initial and subsequent sample collected between 45 - 120 minutes following the initial collection. Blood VENOUS BLOOD SPECIMEN / Unknown Venipuncture / Unknown 01/27/2024 8:24 PM EST 01/27/2024 8:31 PM EST Tor Balbuena MD CHEMISTRY ORDERABL ES [facility] [place] [address] * POC, GLUCOSE (01/27/2024 7:34 PM EST) [facility] Signature Glucometer, POC 197 65 - 199 mg/dL 01/27/2024 7:34 PM EST [facility] Comment:Supplemental ranges: <140 mg/dL before meals <180 mg/dL all other times of the day. Blood CAPILLARY BLOOD / Unknown 01/27/2024 7:34 PM EST 01/27/2024 7:34 PM EST Tor Balbuena MD POINT OF CARE TEST ORDERABLES Performing Organization Address City/[facility]/ZIP Co de Phone Number [facility] [place] [address] * (ABNORMAL) Phosphorus (01/27/2024 7:13 PM EST) Pathologist [facility] Phosphorus 2.3(L) 2.5 - 4.5 mg/dL 01/27/2024 7:57 PM EST [facility] Blood VENOUS BLOOD SPECIMEN / Unknown Venipuncture / Unknown 01/27/2024 7:13 PM EST 01/27/2024 7:16 PM EST Tor Balbuena MD CHEMISTRY ORDERABL ES Performing Organization Address [facility]/ZIP Co de Phone Number [facility] [place] [address] * Magnesium (01/27/2024 7:13 PM EST) [facility] Magnesium 0.79 0.69 - 1.07 mMol/L 01/27/2024 7:57 PM [facility] Blood VENOUS BLOOD SPECIMEN / Unknown Venipuncture / Unknown 01/27/2024 7:13 PM EST 01/27/2024 7:16 PM EST Tor Balbuena MD CHEMISTRY ORDERABL ES Performing Organization Address City/[facility]/ZIP Co de Phone Number [facility] [place] [address] * (ABNORMAL) Basic Metabolic Panel (01/27/2024 7:13 PM EST) Pathologist [facility] Glucose 202(H) 65 - 199 mg/dL 01/27/2024 7:57 PM EST [facility] Comment:Glucose Concentratio n >=200 mg/dL plus symptoms is consistent with Diabetes Mellitus. Blood Urea Nitrogen 9(L) 10 - 20 mg/dL 01/27/2024 7:57 PM EST [facility] Creatinine 0.50(L) 0.80 - 1.50 mg/dL 01/27/2024 7:57 PM EST [facility] Sodium 135 135 - 145 mMol/L 01/27/2024 7:57 PM EST [facility] Potassium 3.6 3.5 - 5.0 mMol/L 01/27/2024 7:57 PM EST [facility] Chloride 100 98 - 107 mMol/L 01/27/2024 7:57 PM EST [facility] Carbon Dioxide 30 22 - 31 mMol/L 01/27/2024 7:57 PM EST [facility] Anion Gap 5 5 - 15 mMol/L 01/27/2024 7:57 PM EST [facility] Calcium 8.1(L) 8.5 - 10.5 mg/dL 01/27/2024 7:57 PM EST [facility] Est Glomerular Filtration Rate - Male 106 mL/min/1. 73 m?? 01/27/2024 7:57 PM EST [facility] Comment: This patient's estimated GFR [...] 7:13 PM EST 01/27/2024 7:16 PM EST Tor Balbuena MD CHEMISTRY ORDERABL ES [facility] [place] [address] * Troponin-T, High Sensitivity (01/27/2024 7:13 PM EST) Troponin-T, High Sensitivity Initial 18 <=22 ng/L 01/27/2024 7:57 PM EST [facility] Comment: This patient's troponin T concentration [...] troponin value can be found in the [facility] Test Catalog Troponin - [email or web address] Reference: Fourth [place] Definition of Myocardial Infarction. Journal of the [place] [employer] 2018;72:1453-1759 Blood VENOUS BLOOD SPECIMEN / Unknown Venipuncture / Unknown 01/27/2024 7:13 PM EST 01/27/2024 7:16 PM EST Tor Balbuena MD [place] [address] * EKG 12 Lead (01/27/2024 6:57 PM EST) Ventricular rate 89 BPM MUSE SYSTEM Atrial Rate 89 BPM MUSE SYSTEM P-R Interval 168 ms MUSE SYSTEM QRS Duration 112 ms MUSE SYSTEM Q-T Interval 376 ms MUSE SYSTEM QTC Calculated (Bezet) 457 ms MUSE SYSTEM Calculated P [place] 43 degrees MUSE SYSTEM Calculated R [place] -17 degrees MUSE SYSTEM Calculated T [place] 11 degrees MUSE SYSTEM INTERPRETATION Sinus rhythm with Premature supraventricular complexes Right bundle branch block Abnormal ECG When compared with ECG of 24-JAN-2024 21:38, Premature supraventricular complexes are now Present Right bundle branch block is now Present Confirmed by MD [email or web address] ([id number]) on 01/28/2024 1:19:34 PM MUSE SYSTEM 01/27/2024 6:57 PM EST 01/28/2024 1:19 PM EST Tor Balbuena MD ECG ORDERABLES MUSE SYSTEM * (ABNORMAL) POC, GLUCOSE (01/27/2024 3:42 PM EST) Glucometer, POC 219(H) 65 - 199 mg/dL 01/27/2024 3:43 PM EST [facility] Comment:Supplemental ranges: <140 mg/dL before meals <180 mg/dL all other times of the day. Blood CAPILLARY BLOOD / Unknown 01/27/2024 3:42 PM EST 01/27/2024 3:43 PM EST Tor Balbuena MD POINT OF CARE TEST ORDERABLES Performing Organization Address City/[facility]/ZIP Co de Phone Number [facility] [place] [phone] * Amylase Level Body Fluid (01/27/2024 3:16 PM EST) Amylase, Fluid <3 unit/L 01/27/2024 4:17 PM EST [facility] Comment: Reference intervals are unavailable for this test in body fluids. Comparison of this result with the concentration in blood serum or plasma is recommended. This test has not been cleared by the [place] FDA. Performance characteristics of this test for the analysis of body fluids were determined by [facility] in accordance with CLIA requirements. This laboratory is qualified under CLIA to perform high-complexity testing. Reference intervals are unavailable for this test in body fluids. Comparison of this result with the concentration in blood serum or plasma is recommended. This test has not been cleared by the [place] FDA. Performance characteristics of this test for the analysis of body fluids were determined by [facility] in accordance with CLIA requirements. This laboratory is qualified under CLIA to perform high-complexity testing. Body Fluid Source Pietro Page 01/27/2024 4:17 PM EST [facility] Body Fluid PIET[place] - PAGE DRAIN / Unknown Non Blood Collection / Unknown 01/27/2024 3:16 PM EST 01/27/2024 3:27 PM EST Tor Balbuena MD BODY FLUIDS AND ST OOLS ORDERABLES [facility] [place] [address] * (ABNORMAL) POC, GLUCOSE (01/27/2024 12:09 PM EST) Glucometer, POC 202(H) 65 - 199 mg/dL 01/27/2024 12:09 PM EST [facility] Comment:Supplemental ranges: <140 mg/dL before meals <180 mg/dL all other times of the day. Blood CAPILLARY BLOOD / Unknown 01/27/2024 12:09 PM EST 01/27/2024 12:09 PM EST Tor Balbuena MD POINT OF CARE TEST ORDERABLES [facility] [place] [address] * Triglyceride Level Body Fluid (01/27/2024 8:27 AM EST) Triglyceride, Fluid 48 mg/dL 01/26 9:29 AM EST [facility] Comment:Reference intervals are unavailable for this test in body fluids. Comparison of this result with the concentration in blood serum or plasma is recommended. This test has not been cleared by the [place] FDA. Performance characteristics of this test for the analysis of body fluids were determined by [facility] in accordance with CLIA requirements. This laboratory is qualified under CLIA to perform high-complexity testing. Body Fluid Source Pietro Page 01/27/2024 9:29 AM EST [facility] Body Fluid [place] - PAGE DRAIN / Unknown Non Blood Collection / Unknown 01/27/2024 8:27 AM EST 01/27/2024 8:45 AM EST Tor Balbuena MD BODY FLUIDS AND ST OOLS ORDERABLES Performing Organization Address [facility]/ZIP Co de Phone Number [facility] [place] [address] * POC, GLUCOSE (01/27/2024 7:47 AM EST) Glucometer, POC 149 65 - 199 mg/dL 01/27/2024 7:48 AM EST [facility] Comment:Supplemental ranges: <140 mg/dL before meals <180 mg/dL all other times of the day. Blood CAPILLARY BLOOD / Unknown 01/27/2024 7:47 AM EST 01/27/2024 7:48 AM EST Tor Balbuena MD POINT OF CARE TEST ORDERABLES Performing Organization Address [facility] Co de Phone Number [facility] [place] [address] * CT Abdomen & Pelvis wwo Contrast (GI BLEED) (01/27/2024 3:55 AM EST) WORKSTATION ID [id number] [facility] [place][NOTE 2] Anatomical Region Laterality Modality Abdomen, Pelvis Computed [...] who have questions please contact the health health careers instructor that requested your imaging first. ? Narrative [...] patients who have questions please contactthe health health careers instructor that requested your imaging first. Tor Balbuena MD IMG CT ORDERABLES * ABORH RECHECK (PATIENT HISTORY FOUND) (01/27/2024 3:15 AM EST) ABORH Recheck Progress Complete 01/27/2024 5:01 AM EST [facility] Blood VENOUS BLOOD SPECIMEN / Unknown Venipuncture / Unknown 01/27/2024 3:15 AM EST 01/27/2024 3:20 AM EST Tor Balbuena MD BLOOD BANK LAB ORD ERABLES Performing Organization Address City/[facility]/ZIP Co de Phone Number [facility] [place] [address] * Type and screen ([facility]CGP/NAT[place]) (01/27/2024 3:15 AM EST) ABORH Type O POSITIVE 01/27/2024 4:16 AM EST [facility] PATIENT HISTORY Found 01/27/2024 4:16 AM EST [facility] Expires at [id number] on: 01/30/2024 01/27/2024 4:16 AM EST [facility] ANTIBODY SCREEN AUTOMATED Negative 01/27/2024 4:16 AM EST [facility] T&S only valid at [facility] 01/27/2024 4:16 AM EST [facility] Blood VENOUS BLOOD SPECIMEN / Unknown Venipuncture / Unknown 01/27/2024 3:15 AM EST 01/27/2024 3:20 AM EST Narrative [facility] - 01/27/2024 4:16 AM EST This Type and Screen result is only valid at the [facility] Tor Balbuena MD BLOOD BANK LAB ORD ERABLES Performing Organization Address City/[facility]/ZIP Co de Phone Number [facility] [place] [place] [address] * POC, GLUCOSE (01/27/2024 3:11 AM EST) Glucometer, POC 155 65 - 199 mg/dL 01/27/2024 3:11 AM EST [facility] Comment:Supplemental ranges: <140 mg/dL before meals <180 mg/dL all other times of the day. Blood CAPILLARY BLOOD / Unknown 01/27/2024 3:11 AM EST 01/27/2024 3:12 AM EST Tor Balbuena MD POINT OF CARE TEST ORDERABLES [facility] [place] [address] * Triglyceride (01/27/2024 12:48 AM EST) Triglyceride 134 mg/dL 01/27/2024 11:42 AM EST [facility] Comment: Normal: <150 mg/dL Borderline High: 150-199 mg/dL High: 200-499 mg/dL Very High: > or =500 mg/dL Blood VENOUS BLOOD SPECIMEN / Unknown Venipuncture / Unknown 01/27/2024 12:48 AM EST 01/27/2024 12:54 AM EST Tor Balbuena MD CHEMISTRY ORDERABL ES [facility] [place] [address] * Magnesium (01/27/2024 12:48 AM EST) Magnesium 0.78 0.69 - 1.07 mMol/L 01/27/2024 1:29 AM EST [facility] Blood VENOUS BLOOD SPECIMEN / Unknown Venipuncture / Unknown 01/27/2024 12:48 AM EST 01/27/2024 12:54 AM EST Tor Balbuena MD CHEMISTRY ORDERABL ES [facility] [place] [address] * Phosphorus (01/27/2024 12:48 AM EST) Phosphorus 2.9 2.5 - 4.5 mg/dL 01/27/2024 1:29 AM [facility] Blood VENOUS BLOOD SPECIMEN / Unknown Venipuncture / Unknown 01/27/2024 12:48 AM EST 01/27/2024 12:54 AM EST Tor Balbuena MD CHEMISTRY ORDERABL ES [facility] [place] [address] * (ABNORMAL) Comprehensive metabolic panel (01/27/2024 12:48 AM EST) Pathologist [facility] Glucose 154 65 - 199 mg/dL 01/27/2024 1:29 AM [facility] Comment:Glucose Concentratio n >=200 mg/dL plus symptoms is consistent with Diabetes Mellitus. Blood Urea Nitrogen 10 10 - 20 mg/dL 01/27/2024 1:29 AM [facility] Creatinine 0.49(L) 0.80 - 1.50 mg/dL 01/27/2024 1:29 AM [facility] Sodium 137 135 - 145 mMol/L 01/27/2024 1:29 AM [facility] Potassium 3.3(L) 3.5 - 5.0 mMol/L 01/27/2024 1:29 AM [facility] Chloride 101 98 - 107 mMol/L 01/27/2024 1:29 AM [facility] Carbon Dioxide 27 22 - 31 mMol/L 01/27/2024 1:29 AM [facility] Anion Gap 9 5 - 15 mMol/L 01/27/2024 1:29 AM [facility] Calcium 8.0(L) 8.5 - 10.5 mg/dL 01/27/2024 1:29 AM [facility] Protein, Total 5.0(L) 6.1 - 8.0 g/dL 01/27/2024 1:29 AM [facility] Albumin 2.7(L) 3.2 - 5.2 g/dL 01/27/2024 1:29 AM [facility] Aspartate Aminotransferase 24 <=39 unit/L 01/27/2024 1:29 AM [facility] Alanine Aminotransferase 60(H) 0 - 55 unit/L 01/27/2024 1:29 AM [facility] Alkaline Phosphatase 124 40 - 130 unit/L 01/27/2024 1:29 AM [facility] Bilirubin, Total 0.8 <=1.3 mg/dL 01/27/2024 1:29 AM [facility] Est Glomerular Filtration Rate - Male 106 mL/min/1. 73 m?? 01/27/2024 1:29 AM [facility] Comment: This patient's estimated [...] 12:48 AM EST 01/27/2024 12:54 AM EST Tor Balbuena MD CHEMISTRY ORDERABL ES [facility] [place] [address] * (ABNORMAL) CBC (with Diff) (01/27/2024 12:48 AM EST) White Blood Cell 4.35 4.00 - 9.50 x10(3)/mc L 01/27/2024 1:02 AM [facility] Red Blood Cell 2.73(L) 4.58 - 5.54 x10(6)/mc L 01/27/2024 1:02 AM [facility] Hemoglobin 8.5(L) 13.7 - 16.5 g/dL 01/27/2024 1:02 AM [facility] Hematocrit 25.2(L) 40.5 - 48.5 % 01/27/2024 1:02 AM [facility] Mean Cell Volume 92.3 82.9 - 93.1 fL 01/27/2024 1:02 AM [facility] Mean Cell Hemoglobin 31.1 27.5 - 32.1 pg 01/27/2024 1:02 AM [facility] Mean Cell Hemoglobin Concentration 33.7 32.0 - 35.7 g/dL 01/27/2024 1:02 AM [facility] Platelet 147 145 - 357 x10(3)/mc L 01/27/2024 1:02 AM [facility] Mean Platelet Volume 9.2 7.6 - 12.9 fL 01/27/2024 1:02 AM [facility] RDW Standard Deviation 48.4(H) 36.0 - 45.0 fL 01/27/2024 1:02 AM [facility] RDW coefficient of variation 14.3(H) 11.4 - 13.8 % 01/27/2024 1:02 AM [facility] NRBC% auto 0.0 % 01/27/2024 1:02 AM [facility] NRBC Absolute <0.01 <0.01 x10(3)/mc L 01/27/2024 1:02 AM [facility] Neutrophil % 75.8 % 01/27/2024 1:02 AM [facility] Neutrophil Absolute (ANC) - Automated 3.30 1.70 - 6.10 x10(3)/mc L 01/27/2024 1:02 AM [facility] Lymph % 11.5 % 01/27/2024 1:02 AM [facility] Lymph Absolute 0.50(L) 0.90 - 3.20 x10(3)/mc L 01/27/2024 1:02 AM [facility] Monocyte % 9.0 % 01/27/2024 1:02 AM [facility] Monocyte Absolute 0.39 0.30 - 0.90 x10(3)/mc L 01/27/2024 1:02 AM [facility] Eos % 3.0 % 01/27/2024 1:02 AM [facility] Eos Absolute 0.13 0.00 - 0.40 x10(3)/mc L 01/27/2024 1:02 AM [facility] Basophil % 0.2 % 01/27/2024 1:02 AM [facility] Baso Absolute <0.04 0.00 - 0.10 x10(3)/mc L 01/27/2024 1:02 AM [facility] Immature Gran % 0.5 % 1:02 AM [facility] Immature Gran Absolute <0.04 0.00 - 0.04 x10(3)/mc L 01/27/2024 1:02 AM [facility] Blood VENOUS BLOOD SPECIMEN / Unknown Venipuncture / Unknown 01/27/2024 12:48 AM EST 01/27/2024 12:55 AM EST Tor Balbuena MD HEMATOLOGY ORDERAB LES [facility] [place] [address] * (ABNORMAL) Amylase (01/27/2024 12:48 AM EST) Amylase 10(L) 28 - 100 unit/L 01/27/2024 1:29 AM [facility] Blood VENOUS BLOOD SPECIMEN / Unknown Venipuncture / Unknown 01/27/2024 12:48 AM EST 01/27/2024 12:54 AM EST Tor Balbuena MD CHEMISTRY ORDERABL ES Performing Organization Address City/[facility]/ZIP Co de Phone Number [facility] [place] [address] * POC, GLUCOSE (01/27/2024 12:36 AM EST) Glucometer, POC 162 65 - 199 mg/dL 01/27/2024 12:36 AM EST [facility] Comment:Supplemental ranges: <140 mg/dL before meals <180 mg/dL all other times of the day. Blood CAPILLARY BLOOD / Unknown 01/27/2024 12:36 AM EST 01/27/2024 12:36 AM EST Tor Balbuena MD POINT OF CARE TEST ORDERABLES Performing Organization Address [facility]/ZIP Co de Phone Number [facility] [place] [address] * POC, GLUCOSE (2024 8:03 PM EST) Glucometer, POC 139 65 - 199 mg/dL 2024 8:04 PM EST [facility] Comment:Supplemental ranges: <140 mg/dL before meals <180 mg/dL all other times of the day. Blood CAPILLARY BLOOD / Unknown 2024 8:03 PM EST 2024 8:04 PM EST Tor Balbuena MD POINT OF CARE TEST ORDERABLES Performing Organization Address City/[facility]/ZIP Co de Phone Number [facility] [place] [address] * POC, GLUCOSE (2024 4:14 PM EST) Glucometer, POC 143 65 - 199 mg/dL 2024 4:14 PM EST [facility] Comment:Supplemental ranges: <140 mg/dL before meals <180 mg/dL all other times of the day. Blood CAPILLARY BLOOD / Unknown 2024 4:14 PM EST 2024 4:14 PM EST Tor Balbuena MD POINT OF CARE TEST ORDERABLES Performing Organization Address [facility] Phone Number [facility] [place] [address] * Amylase Level Body Fluid (2024 1:04 PM EST) Amylase, Fluid 4 unit/L 2024 5:31 PM EST [facility] Comment:Reference intervals are unavailable for this test in body fluids. Comparison of this result with the concentration in blood serum or plasma is recommended. This test has not been cleared by the [place] FDA. Performance characteristics of this test for the analysis of body fluids were determined by [facility] in accordance with CLIA requirements. This laboratory is qualified under CLIA to perform high-complexity testing. Body Fluid Source Heather drain 024 5:31 PM EST [facility] HEATHER Drain 2024 1:04 PM EST 2024 1:10 PM EST Tor Balbuena MD BODY FLUIDS AND ST OOLS ORDERABLES Performing Organization Address [email or web address]] de Phone Number [facility] [place] [address] * POC, GLUCOSE (2024 11:40 AM EST) Glucometer, POC 140 65 - 199 mg/dL 2024 11:40 AM EST [facility] Comment:Supplemental ranges: <140 mg/dL before meals <180 mg/dL all other times of the day. Blood CAPILLARY BLOOD / Unknown 2024 11:40 AM EST 2024 11:41 AM EST Tor Balbuena MD POINT OF CARE TEST ORDERABLES Performing Organization Address City/[facility]/ZIP Co de Phone Number [facility] [place] [address] * POC, GLUCOSE (2024 8:20 AM EST) Glucometer, POC 182 65 - 199 mg/dL 2024 8:20 AM EST [facility] Comment:Supplemental ranges: <140 mg/dL before meals <180 mg/dL all other times of the day. Blood CAPILLARY BLOOD / Unknown 2024 8:20 AM EST 2024 8:20 AM EST Tor Balbuena MD POINT OF CARE TEST ORDERABLES Performing Organization Address [facility] Co de Phone Number [facility] [place] [address] * POC, GLUCOSE (2024 5:04 AM EST) Glucometer, POC 155 65 - 199 mg/dL 2024 5:04 AM EST [facility] Comment:Supplemental ranges: <140 mg/dL before meals <180 mg/dL all other times of the day. Blood CAPILLARY BLOOD / Unknown 2024 5:04 AM EST 2024 5:04 AM EST Tor Balbuena MD POINT OF CARE TEST ORDERABLES Performing Organization Address City/[facility]/ZIP Co de Phone Number [facility] [place] [address] * POC, GLUCOSE (2024 12:24 AM EST) Glucometer, POC 146 65 - 199 mg/dL 2024 12:24 AM EST [facility] Comment:Supplemental ranges: <140 mg/dL before meals <180 mg/dL all other times of the day. Blood CAPILLARY BLOOD / Unknown 2024 12:24 AM EST 2024 12:24 AM EST Tor Balbuena MD POINT OF CARE TEST ORDERABLES Performing Organization Address [facility]/ZIP Co de Phone Number [facility] [place] [address] * Magnesium (2024 12:22 AM EST) Magnesium 0.82 0.69 - 1.07 mMol/L 2024 1:09 AM EST [facility] Blood VENOUS BLOOD SPECIMEN / Unknown Venipuncture / Unknown 2024 12:22 AM EST 2024 12:35 AM EST Tor Balbuena MD CHEMISTRY ORDERABL ES Performing Organization Address [facility] Co de Phone Number [facility] [place] [address] * (ABNORMAL) Phosphorus (2024 12:22 AM EST) Phosphorus 2.1(L) 2.5 - 4.5 mg/dL 2024 1:09 AM EST [facility] Blood VENOUS BLOOD SPECIMEN / Unknown Venipuncture / Unknown 2024 12:22 AM EST 2024 12:35 AM EST Tor Balbuena MD CHEMISTRY ORDERABL ES Performing Organization Address City/[facility]/ZIP Co de Phone Number [facility] [place] [address] * (ABNORMAL) Comprehensive metabolic panel (2024 12:22 AM EST) Glucose 149 65 - 199 mg/dL 2024 1:09 AM EST [facility] Comment:Glucose Concentratio n >=200 mg/dL plus symptoms is consistent with Diabetes Mellitus. Blood Urea Nitrogen 8(L) 10 - 20 mg/dL 2024 1:09 AM [facility] Creatinine 0.51(L) 0.80 - 1.50 mg/dL 2024 1:09 AM [facility] Sodium 138 135 - 145 mMol/L 2024 1:09 AM [facility] Potassium 3.6 3.5 - 5.0 mMol/L 2024 1:09 AM [facility] Chloride 102 98 - 107 mMol/L 2024 1:09 AM [facility] Carbon Dioxide 30 22 - 31 mMol/L 2024 1:09 AM [facility] Anion Gap 6 5 - 15 mMol/L 2024 1:09 AM [facility] Calcium 8.1(L) 8.5 - 10.5 mg/dL 2024 1:09 AM [facility] Protein, Total 5.0(L) 6.1 - 8.0 g/dL 2024 1:09 AM [facility] Albumin 2.8(L) 3.2 - 5.2 g/dL 2024 1:09 AM [facility] Aspartate Aminotransferase 39 <=39 unit/L 2024 1:09 AM [facility] Alanine Aminotransferase 89(H) 0 - 55 unit/L 2024 1:09 AM [facility] Alkaline Phosphatase 126 40 - 130 unit/L 2024 1:09 AM [facility] Bilirubin, Total 0.9 <=1.3 mg/dL 2024 1:09 AM [facility] Est Glomerular Filtration Rate - Male 105 mL/min/1. 73 m?? 2024 1:09 AM [facility] Comment: This patient's estimated [...] BLOOD SPECIMEN / Unknown Venipuncture / Unknown 2024 12:22 AM EST 2024 12:35 AM EST Tor Balbuena MD CHEMISTRY ORDERABL ES [facility] [place] [address] * (ABNORMAL) CBC (with Diff) (2024 12:22 AM EST) White Blood Cell 4.88 4.00 - 9.50 x10(3)/mc L 2024 12:43 AM [facility] Red Blood Cell 2.83(L) 4.58 - 5.54 x10(6)/mc L 2024 12:43 AM [facility] Hemoglobin 8.7(L) 13.7 - 16.5 g/dL 2024 12:43 AM [facility] Hematocrit 26.2(L) 40.5 - 48.5 % 2024 12:43 AM [facility] Mean Cell Volume 92.6 82.9 - 93.1 fL 2024 12:43 AM [facility] Mean Cell Hemoglobin 30.7 27.5 - 32.1 pg 2024 12:43 AM [facility] Mean Cell Hemoglobin Concentration 33.2 32.0 - 35.7 g/dL 2024 12:43 AM [facility] Platelet 126(L) 145 - 357 x10(3)/mc L 2024 12:43 AM [facility] Mean Platelet Volume 9.4 7.6 - 12.9 fL 2024 12:43 AM [facility] RDW Standard Deviation 49.8(H) 36.0 - 45.0 fL 2024 12:43 AM [facility] RDW coefficient of variation 14.6(H) 11.4 - 13.8 % 2024 12:43 AM [facility] NRBC% auto 0.0 % 2024 12:43 AM [facility] NRBC Absolute <0.01 <0.01 x10(3)/mc L 2024 12:43 AM [facility] Neutrophil % 77.7 % 2024 12:43 AM [facility] Neutrophil Absolute (ANC) - Automated 3.79 1.70 - 6.10 x10(3)/mc L 2024 12:43 AM [facility] Lymph % 9.6 % 2024 12:43 AM [facility] Lymph Absolute 0.47(L) 0.90 - 3.20 x10(3)/mc L 2024 12:43 AM [facility] Monocyte % 10.2 % 2024 12:43 AM [facility] Monocyte Absolute 0.50 0.30 - 0.90 x10(3)/mc L 2024 12:43 AM [facility] Eos % 2.3 % 2024 12:43 AM [facility] Eos Absolute 0.11 0.00 - 0.40 x10(3)/mc L 2024 12:43 AM [facility] Basophil % 0.0 % 2024 12:43 AM [facility] Baso Absolute <0.04 0.00 - 0.10 x10(3)/mc L 2024 12:43 AM [facility] Immature Gran % 0.2 % 12:43 AM EST [facility] Immature Gran Absolute <0.04 0.00 - 0.04 x10(3)/mc L 2024 12:43 AM EST [facility] Blood VENOUS BLOOD SPECIMEN / Unknown Venipuncture / Unknown 2024 12:22 AM EST 2024 12:35 AM EST Tor Balbuena MD HEMATOLOGY ORDERAB LES Performing Organization Address City/[facility]/ZIP Co de Phone Number [facility] [place] [address] * (ABNORMAL) Amylase (2024 12:22 AM EST) Amylase 9(L) 28 - 100 unit/L 2024 1:09 AM [facility] Blood VENOUS BLOOD SPECIMEN / Unknown Venipuncture / Unknown 2024 12:22 AM EST 2024 12:35 AM EST Tor Balbuena MD CHEMISTRY ORDERABL ES Performing Organization Address [facility] Co de Phone Number [facility] [place] [address] * POC, GLUCOSE (01/25/2024 8:19 PM EST) Glucometer, POC 168 65 - 199 mg/dL 01/25/2024 8:19 PM EST [facility] Comment:Supplemental ranges: <140 mg/dL before meals <180 mg/dL all other times of the day. Blood CAPILLARY BLOOD / Unknown 01/25/2024 8:19 PM EST 01/25/2024 8:19 PM EST Tor Balbuena MD POINT OF CARE TEST ORDERABLES Performing Organization Address City/[facility]/ZIP Co de Phone Number [facility] [place] [address] * POC, GLUCOSE (01/25/2024 4:13 PM EST) Glucometer, POC 150 65 - 199 mg/dL 01/25/2024 4:13 PM EST [facility] Comment:Supplemental ranges: <140 mg/dL before meals <180 mg/dL all other times of the day. Blood CAPILLARY BLOOD / Unknown 01/25/2024 4:13 PM EST 01/25/2024 4:13 PM EST Tor Balbuena MD POINT OF CARE TEST ORDERABLES [facility] [place] [address] * Amylase Level Body Fluid (01/25/2024 2:15 PM EST) Amylase, Fluid 7 unit/L 01/25/2024 4:10 PM EST [facility] Comment:Reference intervals are unavailable for this test in body fluids. Comparison of this result with the concentration in blood serum or plasma is recommended. This test has not been cleared by the [place] FDA. Performance characteristics of this test for the analysis of body fluids were determined by [facility] in accordance with CLIA requirements. This laboratory is qualified under CLIA to perform high-complexity testing. Body Fluid Source HEATHER drain 024 4:10 PM EST [facility] HEATHER Drain 01/25/2024 2:15 PM EST 01/25/2024 2:19 PM EST Tor Balbuena MD BODY FLUIDS AND ST OOLS ORDERABLES [facility] [place] [address] * POC, GLUCOSE (01/25/2024 11:42 AM EST) Glucometer, POC 199 65 - 199 mg/dL 01/25/2024 11:43 AM EST [facility] Comment:Supplemental ranges: <140 mg/dL before meals <180 mg/dL all other times of the day. Blood CAPILLARY BLOOD / Unknown 01/25/2024 11:42 AM EST 01/25/2024 11:43 AM EST Tor Balbuena MD POINT OF CARE TEST ORDERABLES Performing Organization Address City/[facility]/ZIP Co de Phone Number [facility] [place] [address] * POC, GLUCOSE (01/25/2024 8:20 AM EST) Glucometer, POC 188 65 - 199 mg/dL 01/25/2024 8:20 AM EST [facility] Comment:Supplemental ranges: <140 mg/dL before meals <180 mg/dL all other times of the day. Blood CAPILLARY BLOOD / Unknown 01/25/2024 8:20 AM EST 01/25/2024 8:20 AM EST oTr Balbuena MD POINT OF CARE TEST ORDERABLES Performing Organization Address City/[facility]/ZIP Co de Phone Number [facility] [place] [address] * Gold Tube HOLD (01/25/2024 6:52 AM EST) Gold Hold Hold for Add-on 01/25/2024 9:01 AM EST [facility] Blood VENOUS BLOOD SPECIMEN / Unknown Venipuncture / Unknown 01/25/2024 6:52 AM EST 01/25/2024 7:05 AM EST Tor Balbuena MD CHEMISTRY ORDERABL ES Performing Organization Address City/[facility]/ZIP Co de Phone Number [facility] [place] [address] * Potassium (01/25/2024 6:52 AM EST) Potassium 3.8 3.5 - 5.0 mMol/L 01/25/2024 7:47 AM EST [facility] Blood VENOUS BLOOD SPECIMEN / Unknown Venipuncture / Unknown 01/25/2024 6:52 AM EST 01/25/2024 7:02 AM EST Tor Balbuena MD CHEMISTRY ORDERABL ES Performing Organization Address [facility]/ZIP Co de Phone Number [facility] [place] [address] * (ABNORMAL) Alanine Aminotransferase (01/25/2024 6:52 AM EST) Alanine Aminotransferase 108(H) 0 - 55 unit/L 01/25/2024 7:47 AM EST [facility] Blood VENOUS BLOOD SPECIMEN / Unknown Venipuncture / Unknown 01/25/2024 6:52 AM EST 01/25/2024 7:02 AM EST Tor Balbuena MD CHEMISTRY ORDERABL ES Performing Organization Address [facility]/ZIP Co de Phone Number [facility] [place] [address] * (ABNORMAL) Aspartate Aminotransferase (01/25/2024 6:52 AM EST) Aspartate Aminotransferase 63(H) <=39 unit/L 01/25/2024 7:47 AM EST [facility] Blood VENOUS BLOOD SPECIMEN / Unknown Venipuncture / Unknown 01/25/2024 6:52 AM EST 01/25/2024 7:02 AM EST Tor Balbuena MD CHEMISTRY ORDERABL ES Performing Organization Address City/[facility]/ZIP Co de Phone Number [facility] [place] [address] * POC, GLUCOSE (01/25/2024 3:18 AM EST) Glucometer, POC 179 65 - 199 mg/dL 01/25/2024 3:18 AM EST [facility] Comment:Supplemental ranges: <140 mg/dL before meals <180 mg/dL all other times of the day. Blood CAPILLARY BLOOD / Unknown 01/25/2024 3:18 AM EST 01/25/2024 3:18 AM EST Tor Balbuena MD POINT OF CARE TEST ORDERABLES Performing Organization Address [facility]/[place]UST Co de Phone Number [facility] [place] [address] * Magnesium (01/25/2024 12:28 AM EST) Magnesium 0.83 0.69 - 1.07 mMol/L 01/25/2024 1:07 AM EST [facility] Blood VENOUS BLOOD SPECIMEN / Unknown Venipuncture / Unknown 01/25/2024 12:28 AM EST 01/25/2024 12:39 AM EST Tor Balbuena MD CHEMISTRY ORDERABL ES Performing Organization Address [facility]/[place] Co de Phone Number [facility] [place] [address] * (ABNORMAL) Phosphorus (01/25/2024 12:28 AM EST) Phosphorus 2.4(L) 2.5 - 4.5 mg/dL 01/25/2024 1:07 AM EST [facility] Blood VENOUS BLOOD SPECIMEN / Unknown Venipuncture / Unknown 01/25/2024 12:28 AM EST 01/25/2024 12:39 AM EST Tor Balbuena MD CHEMISTRY ORDERABL ES Performing Organization Address [facility]/[place] Co de Phone Number [facility] [place] [address] * (ABNORMAL) Comprehensive metabolic panel (01/25/2024 12:28 AM EST) Glucose 203(H) 65 - 199 mg/dL 01/25/2024 5:42 AM EST [facility] Comment:Glucose Concentratio n >=200 mg/dL plus symptoms is consistent with Diabetes Mellitus. Blood Urea Nitrogen 14 10 - 20 mg/dL 01/25/2024 5:42 AM [facility] Creatinine 0.54(L) 0.80 - 1.50 mg/dL 01/25/2024 5:42 AM [facility] Sodium 135 135 - 145 mMol/L 01/25/2024 5:42 AM [facility] Potassium 01/25/2024 5:42 AM [facility] Comment:Unable to report due to hemolysis. Chloride 105 98 - 107 mMol/L 01/25/2024 5:42 AM [facility] Carbon Dioxide 25 22 - 31 mMol/L 01/25/2024 5:42 AM [facility] Anion Gap 5 5 - 15 mMol/L 01/25/2024 5:42 AM [facility] Calcium 7.5(L) 8.5 - 10.5 mg/dL 01/25/2024 5:42 AM [facility] Protein, Total 5.0(L) 6.1 - 8.0 g/dL 01/25/2024 5:42 AM [facility] Albumin 2.7(L) 3.2 - 5.2 g/dL 01/25/2024 5:42 AM [facility] Aspartate Aminotransferase 01/25/2024 5:42 AM [facility] Comment:Unable to report due to hemolysis. Alanine Aminotransferase 01/25/2024 5:42 AM [facility] Comment:Unable to report due to hemolysis. Alkaline Phosphatase 131(H) 40 - 130 unit/L 01/25/2024 5:42 AM [facility] Bilirubin, Total 1.1 <=1.3 mg/dL 01/25/2024 5:42 AM [facility] Est Glomerular Filtration Rate - Male 104 mL/min/1. 73 m?? 01/25/2024 5:42 AM [facility] Comment: This patient's estimated [...] SPECIMEN / Unknown Venipuncture / Unknown 01/25/2024 12:28 AM EST 01/25/2024 12:39 AM EST Tor Balbuena MD CHEMISTRY ORDERABL ES [facility] [place] [address] * (ABNORMAL) CBC (with Diff) (01/25/2024 12:28 AM EST) White Blood Cell 5.72 4.00 - 9.50 x10(3)/mc L 01/25/2024 12:44 AM [facility] Red Blood Cell 3.04(L) 4.58 - 5.54 x10(6)/mc L 01/25/2024 12:44 AM [facility] Hemoglobin 9.5(L) 13.7 - 16.5 g/dL 01/25/2024 12:44 AM [facility] Hematocrit 28.4(L) 40.5 - 48.5 % 01/25/2024 12:44 AM [facility] Mean Cell Volume 93.4(H) 82.9 - 93.1 fL 01/25/2024 12:44 AM [facility] Mean Cell Hemoglobin 31.3 27.5 - 32.1 pg 01/25/2024 12:44 AM [facility] Mean Cell Hemoglobin Concentration 33.5 32.0 - 35.7 g/dL 01/25/2024 12:44 AM [facility] Platelet 101(L) 145 - 357 x10(3)/mc L 01/25/2024 12:44 AM [facility] Mean Platelet Volume 9.7 7.6 - 12.9 fL 01/25/2024 12:44 AM [facility] RDW Standard Deviation 54.1(H) 36.0 - 45.0 fL 01/25/2024 12:44 AM [facility] RDW coefficient of variation 16.0(H) 11.4 - 13.8 % 01/25/2024 12:44 AM [facility] NRBC% auto 0.0 % 01/25/2024 12:44 AM [facility] NRBC Absolute <0.01 <0.01 x10(3)/mc L 01/25/2024 12:44 AM [facility] Neutrophil % 79.9 % 01/25/2024 12:44 AM [facility] Neutrophil Absolute (ANC) - Automated 4.57 1.70 - 6.10 x10(3)/mc L 01/25/2024 12:44 AM [facility] Lymph % 7.9 % 01/25/2024 12:44 AM [facility] Lymph Absolute 0.45(L) 0.90 - 3.20 x10(3)/mc L 01/25/2024 12:44 AM [facility] Monocyte % 9.8 % 01/25/2024 12:44 AM [facility] Monocyte Absolute 0.56 0.30 - 0.90 x10(3)/mc L 01/25/2024 12:44 AM [facility] Eos % 1.9 % 01/25/2024 12:44 AM [facility] Eos Absolute 0.11 0.00 - 0.40 x10(3)/mc L 01/25/2024 12:44 AM [facility] Basophil % 0.2 % 01/25/2024 12:44 AM [facility] Baso Absolute <0.04 0.00 - 0.10 x10(3)/mc L 01/25/2024 12:44 AM EST [facility] Immature Gran % 0.3 % 12:44 AM EST [facility] Immature Gran Absolute <0.04 0.00 - 0.04 x10(3)/mc L 01/25/2024 12:44 AM EST [facility] Blood VENOUS BLOOD SPECIMEN / Unknown Venipuncture / Unknown 01/25/2024 12:28 AM EST 01/25/2024 12:39 AM EST Tor Balbuena MD HEMATOLOGY ORDERAB LES Performing Organization Address City/[facility]/ZIP Co de Phone Number [facility] [place] [address] * (ABNORMAL) Amylase (01/25/2024 12:28 AM EST) Amylase 8(L) 28 - 100 unit/L 01/25/2024 1:07 AM EST [facility] Blood VENOUS BLOOD SPECIMEN / Unknown Venipuncture / Unknown 01/25/2024 12:28 AM EST 01/25/2024 12:39 AM EST Tor Balbuena MD CHEMISTRY ORDERABL ES Performing Organization Address [facility]/[place]UST Co de Phone Number [facility] [place] [address] * POC, GLUCOSE (01/25/2024 12:05 AM EST) Glucometer, POC 189 65 - 199 mg/dL 01/25/2024 12:05 AM EST [facility] Comment:Supplemental ranges: <140 mg/dL before meals <180 mg/dL all other times of the day. Blood CAPILLARY BLOOD / Unknown 01/25/2024 12:05 AM EST 01/25/2024 12:05 AM EST Tor Balbuena MD POINT OF CARE TEST ORDERABLES Performing Organization Address City/[facility]/ZIP Co de Phone Number [facility] [place] [address] * EKG 12 Lead (01/24/2024 9:38 PM EST) Ventricular rate 82 BPM MUSE SYSTEM Atrial Rate 82 BPM MUSE SYSTEM P-R Interval 156 ms MUSE SYSTEM QRS Duration 104 ms MUSE SYSTEM Q-T Interval 388 ms MUSE SYSTEM QTC Calculated (Bezet) 453 ms MUSE SYSTEM Calculated P [place] 41 degrees MUSE SYSTEM Calculated R [place] -29 degrees MUSE SYSTEM Calculated T [place] 28 degrees MUSE SYSTEM INTERPRETATION Normal sinus rhythm Normal ECG When compared with ECG of 18-JUL-2021 20:14, No significant change was found Confirmed by Chinmay Perkins MD ([id number]) on 2024 10:35:50 AM MUSE SYSTEM 01/24/2024 9:38 PM EST 2024 10:35 AM EST Tor Balbuena MD ECG ORDERABLES Performing Organization Address City/[facility]/ZIP Co de Phone Number MUSE SYSTEM * POC, GLUCOSE (01/24/2024 7:33 PM EST) Glucometer, POC 156 65 - 199 mg/dL 01/24/2024 7:33 PM EST [facility] Comment:Supplemental ranges: <140 mg/dL before meals <180 mg/dL all other times of the day. Blood CAPILLARY BLOOD / Unknown 01/24/2024 7:33 PM EST 01/24/2024 7:34 PM EST Tor Balbuena MD POINT OF CARE TEST ORDERABLES [facility] [place] [address] * POC, GLUCOSE (01/24/2024 3:49 PM EST) Glucometer, POC 110 65 - 199 mg/dL 01/24/2024 3:49 PM EST [facility] Comment:Supplemental ranges: <140 mg/dL before meals <180 mg/dL all other times of the day. Blood CAPILLARY BLOOD / Unknown 01/24/2024 3:49 PM EST 01/24/2024 3:49 PM EST Tor Balbuena MD POINT OF CARE TEST ORDERABLES Performing Organization Address City/[facility]/ZIP Co de Phone Number [facility] [place] [address] * Amylase Level Body Fluid (01/24/2024 1:48 PM EST) Amylase, Fluid 12 unit/L 01/24/2024 2:44 PM EST [facility] Comment:Reference intervals are unavailable for this test in body fluids. Comparison of this result with the concentration in blood serum or plasma is recommended. This test has not been cleared by the [place] FDA. Performance characteristics of this test for the analysis of body fluids were determined by [facility] in accordance with CLIA requirements. This laboratory is qualified under CLIA to perform high-complexity testing. Body Fluid Source HEATHER Fluid 024 2:44 PM EST [facility] HEATHER Drain 01/24/2024 1:48 PM EST 01/24/2024 1:54 PM EST Tor Balbuena MD BODY FLUIDS AND ST OOLS ORDERABLES Performing Organization Address [facility]/[place]UST Co de Phone Number [facility] [place] [address] * POC, GLUCOSE (01/24/2024 12:08 PM EST) Glucometer, POC 77 65 - 199 mg/dL 01/24/2024 12:08 PM EST [facility] Comment:Supplemental ranges: <140 mg/dL before meals <180 mg/dL all other times of the day. Blood CAPILLARY BLOOD / Unknown 01/24/2024 12:08 PM EST 01/24/2024 12:09 PM EST Tor Balbuena MD POINT OF CARE TEST ORDERABLES Performing Organization Address City/[facility]/ZIP Co de Phone Number [facility] [place] [address] * POC, GLUCOSE (01/24/2024 9:07 AM EST) Glucometer, POC 69 65 - 199 mg/dL 01/24/2024 9:07 AM EST [facility] Comment:Supplemental ranges: <140 mg/dL before meals <180 mg/dL all other times of the day. Blood CAPILLARY BLOOD / Unknown 01/24/2024 9:07 AM EST 01/24/2024 9:07 AM EST Tor Balbuena MD POINT OF CARE TEST ORDERABLES Performing Organization Address City/[facility]/ZIP Co de Phone Number [facility] [place] [address] * POC, GLUCOSE (01/24/2024 8:36 AM EST) Glucometer, POC 68 65 - 199 mg/dL 01/24/2024 8:36 AM EST [facility] Comment:Supplemental ranges: <140 mg/dL before meals <180 mg/dL all other times of the day. Blood CAPILLARY BLOOD / Unknown 01/24/2024 8:36 AM EST 01/24/2024 8:36 AM EST Tor Balbuena MD POINT OF CARE TEST ORDERABLES Performing Organization Address City/[facility]/[place] Co de Phone Number [facility] [place] [address] * (ABNORMAL) POC, GLUCOSE (01/24/2024 8:07 AM EST) Glucometer, POC 57(L) 65 - 199 mg/dL 01/24/2024 8:07 AM EST [facility] Comment:Supplemental ranges: <140 mg/dL before meals <180 mg/dL all other times of the day. Blood CAPILLARY BLOOD / Unknown 01/24/2024 8:07 AM EST 01/24/2024 8:07 AM EST Tor Balbuena MD POINT OF CARE TEST ORDERABLES [facility] [place] [address] * POC, GLUCOSE (01/24/2024 6:08 AM EST) Glucometer, POC 74 65 - 199 mg/dL 01/24/2024 6:08 AM EST [facility] Comment:Supplemental ranges: <140 mg/dL before meals <180 mg/dL all other times of the day. Blood CAPILLARY BLOOD / Unknown 01/24/2024 6:08 AM EST 01/24/2024 6:08 AM EST Tor Balbuena MD POINT OF CARE TEST ORDERABLES Performing Organization Address [facility]/[place] Co de Phone Number [facility] [place] [address] * Prepare RBC (01/24/2024 4:07 AM EST) Status Information Transfused [facility] Product Identification RBC [facility] Unit Number [id number] [facility] Product [facility] [id number] [facility] Unit Blood Type OPOS [facility] Specimen Expiration Date [facility] Volulme 287 [facility] Issue Date / Time [facility] Status [facility] Returned [facility] Product Identification RBC [facility] Unit Number [id number] [facility] Product [facility] [id number] [facility] Unit Blood Type OPOS [facility] Specimen Expiration Date [facility] Volulme 350 [facility] Issue Date / Time [facility] Blood 01/23/2024 3:2 5 PM EST Shaheen Cody MD BLOOD BANK PRODUCT O RDERABLES Performing Organization Address City/[facility]/[place] Co de Phone Number [facility] [place] [place] [address] * POC, GLUCOSE (01/24/2024 4:01 AM EST) Glucometer, POC 73 65 - 199 mg/dL 01/24/2024 4:02 AM EST [facility] Comment:Supplemental ranges: <140 mg/dL before meals <180 mg/dL all other times of the day. Blood CAPILLARY BLOOD / Unknown 01/24/2024 4:01 AM EST 01/24/2024 4:02 AM EST Tor Balbuena MD POINT OF CARE TEST ORDERABLES Performing Organization Address City/[facility]/ZIP Co de Phone Number [facility] [place] [address] * Prepare RBC (01/24/2024 2:07 AM EST) Status Information Transfused [facility] Product Identification RBC [facility] Unit Number [id number] [facility] Product [facility] [id number] [facility] Unit Blood Type OPOS [facility] Specimen Expiration Date [facility] Volulme 350 [facility] Issue Date / Time [facility] Status [facility] Transfused [facility] Product Identification RBC [facility] Unit Number [id number] [facility] Product [facility] [id number] [facility] Unit Blood Type OPOS [facility] Specimen Expiration Date [facility] Volulme 350 [facility] Issue Date / Time [facility] Blood 01/23/2024 1:0 9 PM EST Shaheen Cody MD BLOOD BANK PRODUCT O RDERABLES Performing Organization Address City/[facility]/ZIP Co de Phone Number [facility] [place] [place] [address] * POC, GLUCOSE (01/24/2024 1:40 AM EST) Glucometer, POC 82 65 - 199 mg/dL 01/24/2024 1:40 AM EST [facility] Comment:Supplemental ranges: <140 mg/dL before meals <180 mg/dL all other times of the day. Blood CAPILLARY BLOOD / Unknown 01/24/2024 1:40 AM EST 01/24/2024 1:40 AM EST Tor Balbuena MD POINT OF CARE TEST ORDERABLES Performing Organization Address City/[facility]/ZIP Co de Phone Number [facility] [place] [address] * POC, GLUCOSE (01/24/2024 12:10 AM EST) Glucometer, POC 82 65 - 199 mg/dL 01/24/2024 12:10 AM EST [facility] Comment:Supplemental ranges: <140 mg/dL before meals <180 mg/dL all other times of the day. Blood CAPILLARY BLOOD / Unknown 01/24/2024 12:10 AM EST 01/24/2024 12:11 AM EST Tor Balbuena MD POINT OF CARE TEST ORDERABLES Performing Organization Address City/[facility]/ZIP Co de Phone Number [facility] [place] [address] * Magnesium (01/24/2024 12:01 AM EST) Magnesium 0.76 0.69 - 1.07 mMol/L 01/24/2024 12:53 AM EST [facility] Blood VENOUS BLOOD SPECIMEN / Unknown Arterial / Unknown 01/24/2024 12:01 AM EST 01/24/2024 12:23 AM EST Tor Balbuena MD CHEMISTRY ORDERABL ES Performing Organization Address City/[facility]/ZIP Co de Phone Number [facility] [place] [address] * Phosphorus (01/24/2024 12:01 AM EST) Phosphorus 4.3 2.5 - 4.5 mg/dL 01/24/2024 12:53 AM [facility] Blood VENOUS BLOOD SPECIMEN / Unknown Arterial / Unknown 01/24/2024 12:01 AM EST 01/24/2024 12:23 AM EST Tor Balbuena MD CHEMISTRY ORDERABL ES [facility] [place] [address] * (ABNORMAL) Comprehensive metabolic panel (01/24/2024 12:01 AM EST) Glucose 86 65 - 199 mg/dL 01/24/2024 12:53 AM [facility] Comment:Glucose Concentratio n >=200 mg/dL plus symptoms is consistent with Diabetes Mellitus. Blood Urea Nitrogen 17 10 - 20 mg/dL 01/24/2024 12:53 AM [facility] Creatinine 0.71(L) 0.80 - 1.50 mg/dL 01/24/2024 12:53 AM [facility] Sodium 139 135 - 145 mMol/L 01/24/2024 12:53 AM [facility] Potassium 4.2 3.5 - 5.0 mMol/L 01/24/2024 12:53 AM [facility] Chloride 107 98 - 107 mMol/L 01/24/2024 12:53 AM [facility] Carbon Dioxide 23 22 - 31 mMol/L 01/24/2024 12:53 AM [facility] Anion Gap 9 5 - 15 mMol/L 01/24/2024 12:53 AM [facility] Calcium 7.5(L) 8.5 - 10.5 mg/dL 01/24/2024 12:53 AM [facility] Protein, Total 4.5(L) 6.1 - 8.0 g/dL 01/24/2024 12:53 AM [facility] Albumin 2.8(L) 3.2 - 5.2 g/dL 01/24/2024 12:53 AM [facility] Aspartate Aminotransferase 147(H) <=39 unit/L 01/24/2024 12:53 AM [facility] Alanine Aminotransferase 157(H) 0 - 55 unit/L 01/24/2024 12:53 AM [facility] Alkaline Phosphatase 159(H) 40 - 130 unit/L 01/24/2024 12:53 AM [facility] Bilirubin, Total 1.5(H) <=1.3 mg/dL 01/24/2024 12:53 AM [facility] Est Glomerular Filtration Rate - Male 96 mL/min/1. 73 m?? 01/24/2024 12:53 AM [facility] Comment: This patient's estimated [...] Foundation Blood VENOUS BLOOD SPECIMEN / Unknown Arterial / Unknown 01/24/2024 12:01 AM EST 01/24/2024 12:23 AM EST Tor Balbuena MD CHEMISTRY ORDERABL ES [facility] [place] [address] * (ABNORMAL) CBC (with Diff) (01/24/2024 12:01 AM EST) White Blood Cell 7.86 4.00 - 9.50 x10(3)/mc L 01/24/2024 12:31 AM EST [facility] Red Blood Cell 3.42(L) 4.58 - 5.54 x10(6)/mc L 01/24/2024 12:31 AM [facility] Hemoglobin 10.5(L) 13.7 - 16.5 g/dL 01/24/2024 12:31 AM [facility] Hematocrit 30.9(L) 40.5 - 48.5 % 01/24/2024 12:31 AM [facility] Mean Cell Volume 90.4 82.9 - 93.1 fL 01/24/2024 12:31 AM [facility] Mean Cell Hemoglobin 30.7 27.5 - 32.1 pg 01/24/2024 12:31 AM [facility] Mean Cell Hemoglobin Concentration 34.0 32.0 - 35.7 g/dL 01/24/2024 12:31 AM [facility] Platelet 147 145 - 357 x10(3)/mc L 01/24/2024 12:31 AM [facility] Mean Platelet Volume 9.7 7.6 - 12.9 fL 01/24/2024 12:31 AM [facility] RDW Standard Deviation 51.5(H) 36.0 - 45.0 fL 01/24/2024 12:31 AM [facility] RDW coefficient of variation 15.9(H) 11.4 - 13.8 % 01/24/2024 12:31 AM [facility] NRBC% auto 0.0 % 01/24/2024 12:31 AM [facility] NRBC Absolute <0.01 <0.01 x10(3)/mc L 01/24/2024 12:31 AM [facility] Neutrophil % 79.1 % 01/24/2024 12:31 AM [facility] Neutrophil Absolute (ANC) - Automated 6.22(H) 1.70 - 6.10 x10(3)/mc L 01/24/2024 12:31 AM [facility] Lymph % 10.8 % 01/24/2024 12:31 AM [facility] Lymph Absolute 0.85(L) 0.90 - 3.20 x10(3)/mc L 01/24/2024 12:31 AM [facility] Monocyte % 8.3 % 01/24/2024 12:31 AM [facility] Monocyte Absolute 0.65 0.30 - 0.90 x10(3)/mc L 01/24/2024 12:31 AM [facility] Eos % 0.8 % 01/24/2024 12:31 AM [facility] Eos Absolute 0.06 0.00 - 0.40 x10(3)/mc L 01/24/2024 12:31 AM [facility] Basophil % 0.4 % 01/24/2024 12:31 AM [facility] Baso Absolute <0.04 0.00 - 0.10 x10(3)/mc L 01/24/2024 12:31 AM [facility] Immature Gran % 0.6 % 12:31 AM [facility] Immature Gran Absolute 0.05(H) 0.00 - 0.04 x10(3)/mc L 01/24/2024 12:31 AM [facility] Blood VENOUS BLOOD SPECIMEN / Unknown Arterial / Unknown 01/24/2024 12:01 AM EST 01/24/2024 12:23 AM EST Tor Balbuena MD HEMATOLOGY ORDERAB LES Performing Organization Address City/State/[place] Co de Phone Number [facility] [place] [address] * (ABNORMAL) Amylase (01/24/2024 12:01 AM EST) Amylase 16(L) 28 - 100 unit/L 01/24/2024 12:53 AM [facility] Blood VENOUS BLOOD SPECIMEN / Unknown Arterial / Unknown 01/24/2024 12:01 AM EST 01/24/2024 12:23 AM EST Tor Balbuena MD CHEMISTRY ORDERABL ES [facility] [place] [address] * (ABNORMAL) Blood Gas, Arterial POC (01/23/2024 6:59 PM EST) pH, Arterial 7.37 7.35 - 7.45 01/24/2024 6:32 AM [facility] PCO2, Arterial 39 35 - 45 mmHg 01/24/2024 6:32 AM [facility] PO2, Arterial 133(H) 85 - 104 mmHg 01/24/2024 6:32 AM [facility] Bicarbonate, Arterial 21.7 20.0 - 26.0 mmol/L 01/24/2024 6:32 AM [facility] Base Excess, Arterial -3.6(L) -3.0 - 3.0 mmol/L 01/24/2024 6:32 AM [facility] Hemoglobin, Arterial 10.4(L) 13.7 - 16.5 g/dL 01/24/2024 6:32 AM [facility] Oxyhemoglobin, Arterial 96.0 94.0 - 97.0 % 01/24/2024 6:32 AM [facility] Carboxyhemoglobin , Arterial 0.3 % 01/24/2024 6:32 AM [facility] Comment: Nonsmokers: 0.5-1.5% COHB ?? Smokers: Variable ??but usually less than 10% ?? Toxic: 20-30% COHB ?? Lethal: Greater than 60% COHB Methemoglobin, Arterial 0.3 <=1.5 % 01/24/2024 6:32 AM [facility] Sodium, Arterial 135 135 - 145 mmol/L 01/24/2024 6:32 AM [facility] Potassium, Arterial 3.8 3.5 - 5.0 mmol/L 01/24/2024 6:32 AM [facility] Chloride, Arterial 105 98 - 107 mmol/L 01/24/2024 6:32 AM EST [facility] Lactate, Arterial 1.3 0.5 - 2.2 mmol/L 01/24/2024 6:32 AM EST [facility] IONIZED CALCIUM, ARTERIAL 1.08(L) 1.15 - 1.33 mmol/L 01/24/2024 6:32 AM EST [facility] Glucose, Arterial 116 65 - 199 mg/dL 01/24/2024 6:32 AM EST [facility] Comment:Glucose Concentratio n >=200 mg/dL plus symptoms is consistent with Diabetes Mellitus. Blood ARTERIAL BLOOD / Unknown 01/23/2024 6:59 PM EST 01/24/2024 6:32 AM EST Tor Balbuena MD POINT OF CARE TEST ORDERABLES Performing Organization Address City/[facility]/ZIP Co de Phone Number [facility] [place] [address] * POC, GLUCOSE (01/23/2024 6:56 PM EST) Glucometer, POC 131 65 - 199 mg/dL 01/23/2024 6:56 PM EST [facility] Comment:Supplemental ranges: <140 mg/dL before meals <180 mg/dL all other times of the day. Blood CAPILLARY BLOOD / Unknown 01/23/2024 6:56 PM EST 01/23/2024 6:56 PM EST Tor Balbuena MD POINT OF CARE TEST ORDERABLES [facility] [place] [address] * Fibrinogen (01/23/2024 5:06 PM EST) Fibrinogen 242 200 - 393 mg/dL 01/23/2024 5:53 PM EST [facility] Comment: A fibrinogen level >100 mg/dL is adequate for hemostasis in most patients without underlying bleeding disorders. Blood VENOUS BLOOD SPECIMEN / Unknown Venipuncture / Unknown 01/23/2024 5:06 PM EST 01/23/2024 5:19 PM EST Tor Balbuena MD HEMATOLOGY ORDERAB LES Performing Organization Address [facility]/[place] Co de Phone Number [facility] [place] [address] * APTT (01/23/2024 5:06 PM EST) Partial Thromboplastin Time 26 25 - 37 sec 01/23/2024 5:53 PM EST [facility] Comment: The PTT is NOT appropriate for heparin monitoring. Use the Anti-Xa level for heparin monitoring (HEP UFH) or LMWH monitoring (HEP LMW). A PTT less than 37 seconds generally indicates adequate hemostasis. Blood VENOUS BLOOD SPECIMEN / Unknown Venipuncture / Unknown 01/23/2024 5:06 PM EST 01/23/2024 5:19 PM EST Tor Balbuena MD HEMATOLOGY ORDERAB LES Performing Organization Address [facility] [[email or web address]] de Phone Number [facility] [place] [address] * (ABNORMAL) Prothrombin Time (01/23/2024 5:06 PM EST) Prothrombin Time 12.7(H) 9.4 - 12.5 sec 01/23/2024 5:53 PM EST [facility] International Normalization Ratio 1.1 <=4.9 01/23/2024 5:53 PM EST [facility] Comment: An INR < 2.0 indicates [...] 5:06 PM EST 01/23/2024 5:19 PM EST Tor Balbuena MD HEMATOLOGY ORDERAB LES [facility] [place] [address] * Phosphorus (01/23/2024 5:06 PM EST) Pathologist [facility] Phosphorus 3.9 2.5 - 4.5 mg/dL 01/23/2024 5:59 PM EST [facility] Blood VENOUS BLOOD SPECIMEN / Unknown Venipuncture / Unknown 01/23/2024 5:06 PM EST 01/23/2024 5:19 PM EST Tor Balbuena MD CHEMISTRY ORDERABL ES Performing Organization Address City/[facility]/ZIP Co de Phone Number [facility] [place] [address] * Magnesium (01/23/2024 5:06 PM EST) Pathologist [facility] Magnesium 0.80 0.69 - 1.07 mMol/L 01/23/2024 5:59 PM EST [facility] Blood VENOUS BLOOD SPECIMEN / Unknown Venipuncture / Unknown 01/23/2024 5:06 PM EST 01/23/2024 5:19 PM EST Tor Balbuena MD CHEMISTRY ORDERABL ES Performing Organization Address City/[facility]/ZIP Co de Phone Number [facility] [place] [address] * (ABNORMAL) Comprehensive metabolic panel (01/23/2024 5:06 PM EST) Pathologist [facility] Glucose 158 65 - 199 mg/dL 01/23/2024 5:59 PM EST [facility] Comment:Glucose Concentratio n >=200 mg/dL plus symptoms is consistent with Diabetes Mellitus. Blood Urea Nitrogen 16 10 - 20 mg/dL 01/23/2024 5:59 PM EST [facility] Creatinine 0.62(L) 0.80 - 1.50 mg/dL 01/23/2024 5:59 PM EST [facility] Sodium 139 135 - 145 mMol/L 01/23/2024 5:59 PM [facility] Potassium 4.4 3.5 - 5.0 mMol/L 01/23/2024 5:59 PM [facility] Chloride 105 98 - 107 mMol/L 01/23/2024 5:59 PM [facility] Carbon Dioxide 22 22 - 31 mMol/L 01/23/2024 5:59 PM [facility] Anion Gap 12 5 - 15 mMol/L 01/23/2024 5:59 PM [facility] Calcium 7.9(L) 8.5 - 10.5 mg/dL 01/23/2024 5:59 PM [facility] Protein, Total 4.5(L) 6.1 - 8.0 g/dL 01/23/2024 5:59 PM [facility] Albumin 3.0(L) 3.2 - 5.2 g/dL 01/23/2024 5:59 PM [facility] Aspartate Aminotransferase 232(H) <=39 unit/L 01/23/2024 5:59 PM [facility] Alanine Aminotransferase 167(H) 0 - 55 unit/L 01/23/2024 5:59 PM [facility] Alkaline Phosphatase 188(H) 40 - 130 unit/L 01/23/2024 5:59 PM [facility] Bilirubin, Total 1.5(H) <=1.3 mg/dL 01/23/2024 5:59 PM [facility] Est Glomerular Filtration Rate - Male 100 mL/min/1. 73 m?? 01/23/2024 5:59 PM [facility] Comment: This patient's estimated [...] 5:06 PM EST 01/23/2024 5:19 PM EST Tor Balbuena MD CHEMISTRY ORDERABL ES [facility] [place] [address] * (ABNORMAL) CBC (with Diff) (01/23/2024 5:06 PM EST) White Blood Cell 5.19 4.00 - 9.50 x10(3)/mc L 01/23/2024 5:36 PM EST [facility] Red Blood Cell 3.50(L) 4.58 - 5.54 x10(6)/mc L 01/23/2024 5:36 PM EST [facility] Hemoglobin 10.8(L) 13.7 - 16.5 g/dL 01/23/2024 5:36 PM EST [facility] Hematocrit 31.9(L) 40.5 - 48.5 % 01/23/2024 5:36 PM EST [facility] Mean Cell Volume 91.1 82.9 - 93.1 fL 01/23/2024 5:36 PM EST [facility] Mean Cell Hemoglobin 30.9 27.5 - 32.1 pg 01/23/2024 5:36 PM EST [facility] Mean Cell Hemoglobin Concentration 33.9 32.0 - 35.7 g/dL 01/23/2024 5:36 PM EST [facility] Platelet 116(L) 145 - 357 x10(3)/mc L 01/23/2024 5:36 PM [facility] Mean Platelet Volume 9.9 7.6 - 12.9 fL 01/23/2024 5:36 PM [facility] RDW Standard Deviation 49.3(H) 36.0 - 45.0 fL 01/23/2024 5:36 PM [facility] RDW coefficient of variation 14.9(H) 11.4 - 13.8 % 01/23/2024 5:36 PM [facility] NRBC% auto 0.0 % 01/23/2024 5:36 PM [facility] NRBC Absolute <0.01 <0.01 x10(3)/mc L 01/23/2024 5:36 PM [facility] Neutrophil % 81.3 % 01/23/2024 5:36 PM [facility] Neutrophil Absolute (ANC) - Automated 4.22 1.70 - 6.10 x10(3)/mc L 01/23/2024 5:36 PM [facility] Lymph % 9.4 % 01/23/2024 5:36 PM [facility] Lymph Absolute 0.49(L) 0.90 - 3.20 x10(3)/mc L 01/23/2024 5:36 PM [facility] Monocyte % 8.5 % 01/23/2024 5:36 PM [facility] Monocyte Absolute 0.44 0.30 - 0.90 x10(3)/mc L 01/23/2024 5:36 PM [facility] Eos % 0.2 % 01/23/2024 5:36 PM [facility] Eos Absolute <0.04 0.00 - 0.40 x10(3)/mc L 01/23/2024 5:36 PM [facility] Basophil % 0.4 % 01/23/2024 5:36 PM [facility] Baso Absolute <0.04 0.00 - 0.10 x10(3)/mc L 01/23/2024 5:36 PM [facility] Immature Gran % 0.2 % 5:36 PM [facility] Immature Gran Absolute <0.04 0.00 - 0.04 x10(3)/mc L 01/23/2024 5:36 PM EST [facility] Blood VENOUS BLOOD SPECIMEN / Unknown Venipuncture / Unknown 01/23/2024 5:06 PM EST 01/23/2024 5:18 PM EST Tor Balbuena MD HEMATOLOGY ORDERAB LES [facility] [place] [address] * (ABNORMAL) Hemoglobin A1c (01/23/2024 5:06 PM EST) Hemoglobin A1c 7.0(H) 4.3 - 5.6 % 01/23/2024 5:49 PM EST [facility] Comment: Per ADA guidelines, without clear [...] red blood cell turnover may not be customer contact representative of glycemic control. Reference Interval: 4.3 - 5.6% 5.7 - 6.4%: Consistent with prediabetes >=6.5%: Consistent with diagnosis of diabetes mellitus Estimated Average Glucose 01/23/2024 5:49 PM EST [facility] Comment:Estimated Average Gl ucose not appropriate for patients over 70 years of age. Blood VENOUS BLOOD SPECIMEN / Unknown Venipuncture / Unknown 01/23/2024 5:06 PM EST 01/23/2024 5:18 PM EST Narrative [facility] - 01/23/2024 5:49 PM EST Estimated average glucose (eAG) is calculated from the equation described in: César SAMPSON, Steven J, Soto R, et al. ??Translating the A1C assay into estimated average glucose values. ??Diabetes Care 2008:31(8):6255-3833. Additional resources are available on the ADA website (diabetes.org). Tor Balubena MD CHEMISTRY ORDERABL ES [facility] [place] [address] * POC, GLUCOSE (01/23/2024 5:02 PM EST) Glucometer, POC 162 65 - 199 mg/dL 01/23/2024 5:03 PM EST [facility] Comment:Supplemental ranges: <140 mg/dL before meals <180 mg/dL all other times of the day. Blood CAPILLARY BLOOD / Unknown 01/23/2024 5:02 PM EST 01/23/2024 5:03 PM EST Tor Balbuena MD POINT OF CARE TEST ORDERABLES Performing Organization Address [facility]/ZIP Co de Phone Number [facility] [place] [address] * (ABNORMAL) Blood Gas, Arterial POC (01/23/2024 3:20 PM EST) pH, Arterial 7.38 7.35 - 7.45 01/23/2024 3:21 PM [facility] PCO2, Arterial 41 35 - 45 mmHg 01/23/2024 3:21 PM [facility] PO2, Arterial 215(H) 85 - 104 mmHg 01/23/2024 3:21 PM [facility] Bicarbonate, Arterial 23.7 20.0 - 26.0 mmol/L 01/23/2024 3:21 PM [facility] Base Excess, Arterial -1.4 -3.0 - 3.0 mmol/L 01/23/2024 3:21 PM [facility] Hemoglobin, Arterial 9.2(L) 13.7 - 16.5 g/dL 01/23/2024 3:21 PM [facility] Oxyhemoglobin, Arterial 96.6 94.0 - 97.0 % 01/23/2024 3:21 PM [facility] Carboxyhemoglobin , Arterial 0.3 % 01/23/2024 3:21 PM [facility] Comment: Nonsmokers: 0.5-1.5% COHB ?? Smokers: Variable ??but usually less than 10% ?? Toxic: 20-30% COHB ?? Lethal: Greater than 60% COHB Methemoglobin, Arterial 0.3 <=1.5 % 01/23/2024 3:21 PM [facility] Sodium, Arterial 134(L) 135 - 145 mmol/L 01/23/2024 3:21 PM [facility] Potassium, Arterial 4.0 3.5 - 5.0 mmol/L 01/23/2024 3:21 PM [facility] Chloride, Arterial 105 98 - 107 mmol/L 01/23/2024 3:21 PM [facility] Lactate, Arterial 1.5 0.5 - 2.2 mmol/L 01/23/2024 3:21 PM [facility] IONIZED CALCIUM, ARTERIAL 1.13(L) 1.15 - 1.33 mmol/L 01/23/2024 3:21 PM [facility] Glucose, Arterial 164 65 - 199 mg/dL 01/23/2024 3:21 PM [facility] Comment:Glucose Concentratio n >=200 mg/dL plus symptoms is consistent with Diabetes Mellitus. Blood ARTERIAL BLOOD / Unknown 01/23/2024 3:20 PM EST 01/23/2024 3:21 PM EST Tor Balbuena MD POINT OF CARE TEST ORDERABLES [facility] [place] [address] * (ABNORMAL) Blood Gas, Arterial POC (01/23/2024 2:04 PM EST) pH, Arterial 7.33(L) 7.35 - 7.45 01/23/2024 2:05 PM EST [facility] PH Corrected, Arterial 7.33(L) 7.35 - 7.45 01/23/2024 2:05 PM [facility] PCO2, Arterial 39 35 - 45 mmHg 01/23/2024 2:05 PM [facility] PCO2 Corrected, Arterial 39 35 - 45 mmHg 01/23/2024 2:05 PM [facility] PO2, Arterial 195(H) 85 - 104 mmHg 01/23/2024 2:05 PM [facility] PO2 Corrected, Arterial 194.9(H) 85 - 104 mmHg 01/23/2024 2:05 PM [facility] Bicarbonate, Arterial 20.3 20.0 - 26.0 mmol/L 01/23/2024 2:05 PM [facility] Base Excess, Arterial -5.6(L) -3.0 - 3.0 mmol/L 01/23/2024 2:05 PM [facility] Hemoglobin, Arterial 9.9(L) 13.7 - 16.5 g/dL 01/23/2024 2:05 PM [facility] Oxyhemoglobin, Arterial 96.9 94.0 - 97.0 % 01/23/2024 2:05 PM [facility] Carboxyhemoglobin , Arterial 0.2 % 01/23/2024 2:05 PM [facility] Comment: Nonsmokers: 0.5-1.5% COHB ?? Smokers: Variable ??but usually less than 10% ?? Toxic: 20-30% COHB ?? Lethal: Greater than 60% COHB Methemoglobin, Arterial 0.3 <=1.5 % 01/23/2024 2:05 PM [facility] Sodium, Arterial 134(L) 135 - 145 mmol/L 01/23/2024 2:05 PM [facility] Potassium, Arterial 4.0 3.5 - 5.0 mmol/L 01/23/2024 2:05 PM [facility] Chloride, Arterial 106 98 - 107 mmol/L 01/23/2024 2:05 PM [facility] Lactate, Arterial 1.8 0.5 - 2.2 mmol/L 01/23/2024 2:05 PM [facility] Fraction of Inspired Oxygen 49 % 01/23/2024 2:05 PM [facility] Flow Rate 0.7 L/min 01/23/2024 2:05 PM [facility] PF Ratio 398 Ratio 01/23/2024 2:05 PM [facility] Comment:PF ratio calculated using the non-temperature corrected pO2 result. Patient Temperature 36.9 C 01/23/2024 2:05 PM [facility] IONIZED CALCIUM, ARTERIAL 1.10(L) 1.15 - 1.33 mmol/L 01/23/2024 2:05 PM [facility] Glucose, Arterial 196 65 - 199 mg/dL 01/23/2024 2:05 PM [facility] Comment:Glucose Concentratio n >=200 mg/dL plus symptoms is consistent with Diabetes Mellitus. Blood ARTERIAL BLOOD / Unknown 01/23/2024 2:04 PM EST 01/23/2024 2:05 PM EST Tor Balbuena MD POINT OF CARE TEST ORDERABLES [facility] [place] [address] * (ABNORMAL) Blood Gas, Arterial POC (01/23/2024 12:34 PM EST) pH, Arterial 7.39 7.35 - 7.45 01/23/2024 12:35 PM [facility] PH Corrected, Arterial 7.40 7.35 - 7.45 01/23/2024 12:35 PM [facility] PCO2, Arterial 41 35 - 45 mmHg 01/23/2024 12:35 PM [facility] PCO2 Corrected, Arterial 40 35 - 45 mmHg 01/23/2024 12:35 PM [facility] PO2, Arterial 221(H) 85 - 104 mmHg 01/23/2024 12:35 PM [facility] PO2 Corrected, Arterial 217.3(H) 85 - 104 mmHg 01/23/2024 12:35 PM [facility] Bicarbonate, Arterial 24.3 20.0 - 26.0 mmol/L 01/23/2024 12:35 PM [facility] Base Excess, Arterial -0.7 -3.0 - 3.0 mmol/L 01/23/2024 12:35 PM [facility] Hemoglobin, Arterial 11.0(L) 13.7 - 16.5 g/dL 01/23/2024 12:35 PM [facility] Oxyhemoglobin, Arterial 95.9 94.0 - 97.0 % 01/23/2024 12:35 PM [facility] Carboxyhemoglobin , Arterial 0.3 % 01/23/2024 12:35 PM [facility] Comment: Nonsmokers: 0.5-1.5% COHB ?? Smokers: Variable ??but usually less than 10% ?? Toxic: 20-30% COHB ?? Lethal: Greater than 60% COHB Methemoglobin, Arterial 0.3 <=1.5 % 01/23/2024 12:35 PM [facility] Sodium, Arterial 138 135 - 145 mmol/L 01/23/2024 12:35 PM [facility] Potassium, Arterial 3.4(L) 3.5 - 5.0 mmol/L 01/23/2024 12:35 PM [facility] Chloride, Arterial 104 98 - 107 mmol/L 01/23/2024 12:35 PM [facility] Lactate, Arterial 1.4 0.5 - 2.2 mmol/L 01/23/2024 12:35 PM [facility] Fraction of Inspired Oxygen 50 % 01/23/2024 12:35 PM [facility] Flow Rate 0.7 L/min 01/23/2024 12:35 PM [facility] PF Ratio 442 Ratio 01/23/2024 12:35 PM EST [facility] Comment:PF ratio calculated using the non-temperature corrected pO2 result. Patient Temperature 36.3 C 01/23/2024 12:35 PM EST [facility] IONIZED CALCIUM, ARTERIAL 1.16 1.15 - 1.33 mmol/L 01/23/2024 12:35 PM EST [facility] Glucose, Arterial 154 65 - 199 mg/dL 01/23/2024 12:35 PM EST [facility] Comment:Glucose Concentratio n >=200 mg/dL plus symptoms is consistent with Diabetes Mellitus. Blood ARTERIAL BLOOD / Unknown 01/23/2024 12:34 PM EST 01/23/2024 12:35 PM EST Tor Balbuena MD POINT OF CARE TEST ORDERABLES Performing Organization Address [facility] Co de Phone Number [facility] [place] [address] * POC, GLUCOSE (01/23/2024 11:47 AM EST) Glucometer, POC 156 65 - 199 mg/dL 01/23/2024 11:53 AM EST [facility] Comment:Supplemental ranges: <140 mg/dL before meals <180 mg/dL all other times of the day. Blood CAPILLARY BLOOD / Unknown 01/23/2024 11:47 AM EST 01/23/2024 11:53 AM EST Tor Balbuena MD POINT OF CARE TEST ORDERABLES Performing Organization Address [facility]/ZIP Co de Phone Number [facility] [place] [address] * (ABNORMAL) Surgical Pathology (01/23/2024 11:16 AM EST) Case Report Surgical Pathology Report ? Case: [id number] ? Authorizing Provider: ??Tor Balbuena MD ?Collected: ? 01/23/2024 1116 ? Ordering Location: ? Main Operating Room [facility] ?? Received: ?01/23/2024 1403 ? [facility] ? Hospital ? Pathologist: ? Li Lynne MD ? Specimens: ?? A) - Lymph Node, Gastric, common hepatic artery lymph node ? B) - Pancreas, head of pancreas, duodenum, bile duct, gallbladder, antrum ? 4 2:36 PM EST [facility] Final Diagnosis A. Lymph Node: Lymph node, negative for carcinoma (0/1). B. Pancreas, head of pancreas, duodenum, bile duct, gallbladder, antrum Excision: Residual invasive pancreatic ductal carcinoma, see Synoptic Report below. Gallbladder, negative for carcinoma. Omentum with fibrosis, negative for carcinoma. 4 2:36 PM [facility] Synoptic Report PANCREAS (EXOCRINE) [...] (PanIN) (highest grade): PanIN3 4 2:36 PM [facility] Discussion The case was reviewe d at the GI pathology consensus conference. 4 2:36 PM [facility] Additional Studies Task ID IHC/Special Stains Result B22-2 CKAE1/3 Reviewed for diagnosis B31-2 CKAE1/3 Reviewed for diagnosis B32-2 CKAE1/3 Reviewed for diagnosis 4 2:36 PM [facility] Disclaimer(s) Formalin-fixed, paraffin-embedded tissue [...] and other diagnostic tests. 4 2:36 PM [facility] Clinical Information A. Lymph Node, common hepatic artery lymph node *Other - as specified in Clinical Information Pancreas cancer, common hepatic artery lymph node B. Pancreas, head of pancreas, duodenum, bile duct, gallbladder, antrum *Other - as specified in Clinical Information Pancreas cancer Yellow: pancreatic neck margin FROZEN Amity: SMA Green: bile duct margin Blue: vascular groove 4 2:36 PM [facility] Intraoperative Consultation B. Pancreas, head of pancreas, duodenum, bile duct, gallbladder, antrum. FS1 - Pancreatic neck margin: Negative for tumor. . This a preliminary intraoperative diagnosis. A final report will follow. 4 2:36 PM [facility] Gross Description A. Lymph [...] 13.5 cm Lesser Curvature: 7.5 cm Serosa: [place]-red, smooth and glistening. Mucosa: [place] with the usual rugal folds DUODENUM Length/Diameter: 32 x 2.5 cm Serosa: [place]-red, smooth and glistening. Mucosa: [place]-red with the usual folds slightly polypoid proximal to the ampulla.. Ampulla of Vater: Patent, with stent in place. GALLBLADDER Size: 10 x 3 x 3 cm Serosa: [place]-purple and smooth Mucosa: Lumen contents consists of [...] 2 cm ill-defined firm indurated nodular area. Pumper Helper sections in 37 cassettes as follows: B1: FS 1-pancreatic neck margin en face B2: Hepatic duct margin en face B3: Gastric margin en face B4: Duodenum margin en face B5: Pumper Helper gallbladder and cystic duct B6: Cystic duct [...] omentum lesion sns 4 2:36 PM EST [facility] Result Note THIS RESULT REQUIRES PHYSICIAN/IDANIA FOLLOW UP(A) 4 2:36 PM EST [facility] Tissue STRUCTURE OF LEFT GASTRIC LYMPH NODE / Unknown 01/23/2024 11:16 AM EST 01/23/2024 2:03 PM EST Comment:Pancreas cancer, com mon hepatic artery lymph node Tissue specimen (specimen) PANCREATIC STRUCTURE / Unknown 01/23/2024 12:47 PM EST 01/23/2024 1:55 PM EST Comment:Pancreas cancer Yellow: pancreatic neck margin FROZEN Amity: SMA Green: bile duct margin Blue: vascular groove Tor Balbuena MD PATHOLOGY/CYTOLOGY ORDERABLES [facility] [place] [address] * (ABNORMAL) Anaerobic Culture (01/23/2024 10:54 AM EST) Anaerobic Culture Rare Bacteroides fragilis group(A) VITEK 2 METHOD 01/27/2024 3:01 PM EST [facility] Tissue BILE DUCT STRUCTURE / Unknown 01/23/2024 10:54 AM EST Comment:Pancreatic cancer Tor Balbuena MD MICROBIOLOGY - GEN ERAL ORDERABLES Performing Organization Address City/[facility]/ZIP Co de Phone Number [facility] [place] [address] * Tissue Culture, Aerobic Only (01/23/2024 10:54 AM EST) Tissue Culture No growth 01/27/2024 11:01 AM EST [facility] Gram Stain No neutrophils seen 01/27/2024 11:01 AM EST [facility] Gram Stain No microorganisms seen 01/27/2024 11:01 AM [facility] Tissue BILE DUCT STRUCTURE / Unknown 01/23/2024 10:54 AM EST Comment:Pancreatic cancer Tor Balbuena MD MICROBIOLOGY - GEN ERAL ORDERABLES Performing Organization Address City/[facility]/RUST Co de Phone Number [facility] [place] [address] * (ABNORMAL) Blood Gas, Arterial POC (01/23/2024 10:43 AM EST) pH, Arterial 7.43 7.35 - 7.45 01/23/2024 10:44 AM [facility] PH Corrected, Arterial 7.45 7.35 - 7.45 01/23/2024 10:44 AM [facility] PCO2, Arterial 41 35 - 45 mmHg 01/23/2024 10:44 AM [facility] PCO2 Corrected, Arterial 39 35 - 45 mmHg 01/23/2024 10:44 AM [facility] PO2, Arterial 233(H) 85 - 104 mmHg 01/23/2024 10:44 AM [facility] PO2 Corrected, Arterial 226.0(H) 85 - 104 mmHg 01/23/2024 10:44 AM [facility] Bicarbonate, Arterial 26.6(H) 20.0 - 26.0 mmol/L 01/23/2024 10:44 AM [facility] Base Excess, Arterial 2.3 -3.0 - 3.0 mmol/L 01/23/2024 10:44 AM [facility] Hemoglobin, Arterial 11.6(L) 13.7 - 16.5 g/dL 01/23/2024 10:44 AM [facility] Oxyhemoglobin, Arterial 96.1 94.0 - 97.0 % 01/23/2024 10:44 AM [facility] Carboxyhemoglobin , Arterial 0.2 % 01/23/2024 10:44 AM [facility] Comment: Nonsmokers: 0.5-1.5% COHB ?? Smokers: Variable ??but usually less than 10% ?? Toxic: 20-30% COHB ?? Lethal: Greater than 60% COHB Methemoglobin, Arterial 0.2 <=1.5 % 01/23/2024 10:44 AM [facility] Sodium, Arterial 136 135 - 145 mmol/L 01/23/2024 10:44 AM [facility] Potassium, Arterial 3.4(L) 3.5 - 5.0 mmol/L 01/23/2024 10:44 AM [facility] Chloride, Arterial 103 98 - 107 mmol/L 01/23/2024 10:44 AM [facility] Lactate, Arterial 1.3 0.5 - 2.2 mmol/L 01/23/2024 10:44 AM [facility] Fraction of Inspired Oxygen 50 % 01/23/2024 10:44 AM [facility] Flow Rate 0.6 L/min 01/23/2024 10:44 AM [facility] PF Ratio 466 Ratio 01/23/2024 10:44 AM [facility] Comment:PF ratio calculated using the non-temperature corrected pO2 result. Patient Temperature 35.6 C 01/23/2024 10:44 AM [facility] IONIZED CALCIUM, ARTERIAL 1.08(L) 1.15 - 1.33 mmol/L 01/23/2024 10:44 AM EST [facility] Glucose, Arterial 193 65 - 199 mg/dL 01/23/2024 10:44 AM EST [facility] Comment:Glucose Concentratio n >=200 mg/dL plus symptoms is consistent with Diabetes Mellitus. Blood ARTERIAL BLOOD / Unknown 01/23/2024 10:43 AM EST 01/23/2024 10:44 AM EST Tor Balbuena MD POINT OF CARE TEST ORDERABLES Performing Organization Address City/[facility]/ZIP Co de Phone Number [facility] [place] [address] * POC, GLUCOSE (01/23/2024 9:27 AM EST) Glucometer, POC 194 65 - 199 mg/dL 01/23/2024 9:27 AM EST [facility] Comment:Supplemental ranges: <140 mg/dL before meals <180 mg/dL all other times of the day. Blood CAPILLARY BLOOD / Unknown 01/23/2024 9:27 AM EST 01/23/2024 9:27 AM EST Tor Balbuena MD POINT OF CARE TEST ORDERABLES Performing Organization Address City/[facility]/ZIP Co de Phone Number [facility] [place] [address] * ABORH RECHECK (PATIENT HISTORY FOUND) (01/23/2024 8:51 AM EST) ABORH Recheck Progress Complete 01/23/2024 11:01 AM EST [facility] Blood VENOUS BLOOD SPECIMEN / Unknown 01/23/2024 8:51 AM EST 01/23/2024 9:07 AM EST Tor Balbuena MD BLOOD BANK LAB ORD ERABLES Performing Organization Address City/[facility]/ZIP Co de Phone Number [facility] [place] [address] * Type and screen ([facility]) (01/23/2024 8:51 AM EST) ABORH Type O POSITIVE 01/23/2024 10:26 AM EST [facility] PATIENT HISTORY Found 01/23/2024 10:26 AM EST [facility] Expires at [id number] on: 2024 01/23/2024 10:26 AM EST [facility] ANTIBODY SCREEN AUTOMATED Negative 01/23/2024 10:26 AM EST [facility] T&S only valid at [facility] 01/23/2024 10:26 AM EST [facility] Blood VENOUS BLOOD SPECIMEN / Unknown 01/23/2024 8:51 AM EST 01/23/2024 9:07 AM EST Comment:Pre-op diagnosis: PANCREAS CANCER Narrative [facility] - 01/23/2024 10:26 AM EST This Type and Screen result is only valid at the [facility] Tor Balbuena MD BLOOD BANK LAB ORD ERABLES [facility] [place] [place] [address] * (ABNORMAL) Blood Gas, Arterial POC (01/23/2024 8:28 AM EST) pH, Arterial 7.42 7.35 - 7.45 01/23/2024 8:29 AM EST [facility] PH Corrected, Arterial 7.45 7.35 - 7.45 01/23/2024 8:29 AM EST [facility] PCO2, Arterial 36 35 - 45 mmHg 01/23/2024 8:29 AM EST [facility] PCO2 Corrected, Arterial 34(L) 35 - 45 mmHg 01/23/2024 8:29 AM EST [facility] PO2, Arterial 294(H) 85 - 104 mmHg 01/23/2024 8:29 AM EST [facility] PO2 Corrected, Arterial 286.3(H) 85 - 104 mmHg 01/23/2024 8:29 AM EST [facility] Bicarbonate, Arterial 23.0 20.0 - 26.0 mmol/L 01/23/2024 8:29 AM [facility] Base Excess, Arterial -1.4 -3.0 - 3.0 mmol/L 01/23/2024 8:29 AM [facility] Hemoglobin, Arterial 10.6(L) 13.7 - 16.5 g/dL 01/23/2024 8:29 AM [facility] Oxyhemoglobin, Arterial 96.2 94.0 - 97.0 % 01/23/2024 8:29 AM [facility] Carboxyhemoglobin , Arterial 0.2 % 01/23/2024 8:29 AM [facility] Comment: Nonsmokers: 0.5-1.5% COHB ?? Smokers: Variable ??but usually less than 10% ?? Toxic: 20-30% COHB ?? Lethal: Greater than 60% COHB Methemoglobin, Arterial 0.2 <=1.5 % 01/23/2024 8:29 AM [facility] Sodium, Arterial 135 135 - 145 mmol/L 01/23/2024 8:29 AM [facility] Potassium, Arterial 3.4(L) 3.5 - 5.0 mmol/L 01/23/2024 8:29 AM [facility] Chloride, Arterial 103 98 - 107 mmol/L 01/23/2024 8:29 AM [facility] Lactate, Arterial 1.2 0.5 - 2.2 mmol/L 01/23/2024 8:29 AM [facility] Fraction of Inspired Oxygen 63 % 01/23/2024 8:29 AM [facility] Flow Rate 0.7 L/min 01/23/2024 8:29 AM [facility] PF Ratio 467 Ratio 01/23/2024 8:29 AM [facility] Comment:PF ratio calculated using the non-temperature corrected pO2 result. Patient Temperature 35.4 C 01/23/2024 8:29 AM [facility] IONIZED CALCIUM, ARTERIAL 1.13(L) 1.15 - 1.33 mmol/L 01/23/2024 8:29 AM EST [facility] Glucose, Arterial 186 65 - 199 mg/dL 01/23/2024 8:29 AM EST [facility] Comment:Glucose Concentratio n >=200 mg/dL plus symptoms is consistent with Diabetes Mellitus. Blood ARTERIAL BLOOD / Unknown 01/23/2024 8:28 AM EST 01/23/2024 8:29 AM EST Tor Balbuena MD POINT OF CARE TEST ORDERABLES [facility] [place] [address] * XR Fluoro No Rad <1Hr - OR Use (01/23/2024 7:50 AM EST) Narrative Dicom, Auditing User - 01/23/2024 8:08 AM EST This exam is auto-finalizing. No interpretation was done. Cayetano Rodgers MD IMG FLUORO ORDERABL ES * POC, GLUCOSE (01/23/2024 6:58 AM EST) Glucometer, POC 197 65 - 199 mg/dL 01/23/2024 7:01 AM EST [facility] Comment:Supplemental ranges: <140 mg/dL before meals <180 mg/dL all other times of the day. Blood CAPILLARY BLOOD / Unknown 01/23/2024 6:58 AM EST 01/23/2024 7:01 AM EST Tor Balbuena MD POINT OF CARE TEST ORDERABLES [facility] [place] [address] documented in this encounter Visit Diagnoses Diagnosis Pancreatic cancer- Primary Malignant neoplasm of pancreas, part unspecified ASCVD (arteriosclerotic cardiovascular disease) Unspecified cardiovascular disease Malignant neoplasm of head of pancreas Hx of CABG Postsurgical aortocoronary bypass status Malignant neoplasm of pancreas, unspecified location of malignancy documented in this encounter Admitting Diagnoses Diagnosis Pancreatic cancer Malignant neoplasm of pancreas, part unspecified documented in this encounter Administered Medications Inactive Administered Medications - up to 3 most recent administrations Medication Order MAR Action Action Date Dose Rate Site acetaminophen (Ofirmev) (1,000 mg/100 mL) infusion 1,000 mg 1,000 mg, Intravenous, at 400 mL/hr, Administer over 15 Minutes, EVERY 6 HOURS SCHEDULED, 7 doses, First dose on Ammy 01/23/24 at 1800, Last dose on 01/25/24 at 0600, - Maximum dose of acetaminophen is 4,000 mg from all sources in 24 hours. - Unless otherwise specified, when ordered PRN for pain, acetaminophen should be given first if other PRN pain medications are ordered., Routine, Is ketorolac (Toradol) IV contraindicated? Yes, Can this patient tolerate oral medications or suppositories? No Given 01/25/2024 5:15 AM EST 1,000 mg 400 mL/hr Given 01/24/2024 11:52 PM EST 1,000 mg 400 mL/hr Given 01/24/2024 5:50 PM EST 1,000 mg 400 mL/hr acetaminophen (Ofirmev) (1,000 mg/100 mL) infusion 1,000 mg 1,000 mg, Intravenous, at 400 mL/hr, Administer over 15 Minutes, EVERY 6 HOURS SCHEDULED, 4 doses, First dose (after last reorder) on 01/25/24 at 0830, Last dose on 01/26/24 at 0000, - Maximum dose of acetaminophen is 4,000 mg from all sources in 24 hours. - Unless otherwise specified, when ordered PRN for pain, acetaminophen should be given first if other PRN pain medications are ordered., Routine, Is ketorolac (Toradol) IV contraindicated? Yes, Can this patient tolerate oral medications or suppositories? No Given 2024 12:22 AM EST 1,000 mg 400 mL/hr Given 01/25/2024 5:53 PM EST 1,000 mg 400 mL/hr Given 01/25/2024 12:03 PM EST 1,000 mg 400 mL/hr acetaminophen (Ofirmev) (1,000 mg/100 mL) infusion 1,000 mg 1,000 mg, Intravenous, at 400 mL/hr, Administer over 15 Minutes, EVERY 6 HOURS SCHEDULED, 4 doses, First dose (after last reorder) on 01/26/24 at 0845, Last dose on Sat01/27/24 at 0000, - Maximum dose of acetaminophen is 4,000 mg from all sources in 24 hours. - Unless otherwise specified, when ordered PRN for pain, acetaminophen should be given first if other PRN pain medications are ordered., Routine, Is ketorolac (Toradol) IV contraindicated? Yes, Can this patient tolerate oral medications or suppositories? No Given 01/27/2024 12:25 AM EST 1,000 mg 400 mL/hr Given 2024 5:58 PM EST 1,000 mg 400 mL/hr Given 2024 11:43 AM EST 1,000 mg 400 mL/hr acetaminophen (Ofirmev) (1,000 mg/100 mL) infusion 1,000 mg 1,000 mg, Intravenous, at 400 mL/hr, Administer over 15 Minutes, EVERY 6 HOURS SCHEDULED, 7 doses, First dose on Sat01/27/24 at 2015, Last dose on Sat01/29/24 at 0830, Maximum dose of acetaminophen is 4,000 mg from all sources in 24 hours. When ordered for pain, acetaminophen should be given even when other ordered pain medications are indicated. , Routine, Is ketorolac (Toradol) IV contraindicated? Yes, Can this patient tolerate oral medications or suppositories? No Given 01/29/2024 8:17 AM EST 1,000 mg 400 mL/hr Given 01/29/2024 1:54 AM EST 1,000 mg 400 mL/hr Given 01/28/2024 8:22 PM EST 1,000 mg 400 mL/hr acetaminophen (Tylenol) tablet 975 mg 975 mg, Oral, EVERY 6 HOURS SCHEDULED, First dose on Ammy 01/30/24 at 0800, Until Discontinued, Maximum dose of acetaminophen is 4,000 mg from all sources in 24 hours. When ordered for pain, acetaminophen should be given even when other ordered pain medications are indicated., Routine Given 02/01/2024 5:36 AM EST 975 mg Given 02/01/2024 12:08 AM EST 975 mg Given 01/31/2024 5:47 PM EST 975 mg Adult TPN (Custom) Central, Intravenous, at 100 mL/hr, Continuous (TPN), 1 dose, First dose on Mon /25/24 at 1800, Last dose on Sat01/27/24 at 1800, Administer over 24 Hours New Bag 01/27/2024 6:38 PM EST 100 mL /hr Adult TPN (Custom) Central, Intravenous, at 65 mL/hr, Continuous (TPN), 1 dose, First dose (after last reorder) on Sat01/28/24 at 1800, Last dose on Sat01/28/24 at 1800, Administer over 24 Hours Rate/Dose Verify 01/28/2024 8:55 PM EST 65 mL/hr New Bag 01/28/2024 5:57 PM EST 65 mL/hr Adult TPN (Custom) Central, Intravenous, at 65 mL/hr, Continuous (TPN), 5 doses, First dose (after last reorder) on Sat01/29/24 at 1800, Last dose on Sat02/02/24 at 1800, Administer over 24 Hours New Bag 01/30/2024 6:04 PM EST 65 mL/ hr New Bag 01/29/2024 5:38 PM EST 65 mL/hr amLODIPine (Norvasc) tablet 10 mg 10 mg, Oral, DAILY, First dose on Sat01/29/24 at 1145, Until Discontinued, Hold for SBP <120mmHg, Routine Given 02/01/2024 8:51 AM EST 10 mg Given 01/31/2024 8:20 AM EST 10 mg Given 01/30/2024 9:36 AM EST 10 mg aspirin EC tablet 81 mg 81 mg, Oral, DAILY, First dose on Sat01/30/24 at 0900, Until Discontinued, Routine Given 02/01/2024 8:51 AM EST 81 mg Given 01/31/2024 8:20 AM EST 81 mg Given 01/30/2024 9:36 AM EST 81 mg aspirin suppository 300 mg 300 mg, Rectal, DAILY, First dose on Sat01/24/24 at 1115, Until Discontinued, Routine Given 01/29/2024 10:25 AM EST 300 mg Given 01/28/2024 8:39 AM EST 300 mg Given 01/27/2024 8:29 AM EST 300 mg atorvastatin (Lipitor) tablet 80 mg 80 mg, Oral, EVERY EVENING, First dose on Sat01/29/24 at 1700, Until Discontinued, Routine Given 01/31/2024 5:4 7 PM EST 80 mg Given 01/30/2024 4:26 PM EST 80 mg Given 01/29/2024 5:20 PM EST 80 mg bisacodyL (Dulcolax) suppository 10 mg 10 mg, Rectal, ONCE, 1 dose, On Sat01/27/24 at 0745, Routine Given 01/27/2024 10:47 AM EST 10 mg carvediloL (Coreg) tablet 25 mg 25 mg, Oral, DAILY, First dose on Sat01/24/24 at 0900, Until Discontinued, Routine Given 02/01/2024 8:5 1 AM EST 25 mg Given 01/31/2024 8:20 AM EST 25 mg Given 01/30/2024 9:35 AM EST 25 mg chlorthalidone (Hygroton) tablet 25 mg 25 mg, Oral, DAILY, First dose on Sat01/29/24 at 1145, Until Discontinued, Routine Given 02/01/2024 8:51 AM EST 25 mg Given 01/31/2024 8:20 AM EST 25 mg Given 01/30/2024 9:36 AM EST 25 mg dextrose 5% and sodium chloride 0.45% infusion 75 mL/hr, Intravenous, CONTINUOUS, Starting on Sat01/24/24 at 1045, Until Sat01/27/24 at 1800 New Bag 01/27/2024 9:39 AM EST 75 mL/hr 75 m L/hr New Bag 2024 9:46 PM EST 75 mL/hr 75 mL/hr Rate/Dose Verify 2024 7:00 PM EST 75 mL/hr 75 mL/h r dextrose 50% intravenous solution 25 g 25 g, Intravenous, EVERY 15 MIN PRN, Starting on Ammy 01/23/24 at 1717, Until 02/01/24 at 1452, Low blood sugar, ??Oral treatment preferred For Blood Glucose 50 to 70 mg/dL: ?? -??IF ABLE TO DRINK, give 120 mL juice or regular (not diet) soda - IF NPO, give 15 gram glucose 40% oral gel massaged into buccal mucosa - IF UNCONSCIOUS OR UNCOOPERATIVE, give 25 gram dextrose IV - IF NO IV ACCESS, give 1 mg glucagon IM. For Blood Glucose LESS than 50 mg/dL: ?? -??IF ABLE TO DRINK, give 240 mL juice or regular (not diet) soda - IF NPO, give 30 gram glucose 40% oral gel massaged into buccal mucosa - IF UNCONSCIOUS OR UNCOOPERATIVE, give 25 gram dextrose IV - IF NO IV ACCESS, 1 mg glucagon IM. Recheck BG in 15 minutes. May repeat juice/soda, gel, dextrose or glucagon once per episode. Notify provider if hypoglycemia does not resolve after two treatments. Providers should consider the following: administering longer-acting treatments for the duration of active insulin or hypoglycemia agent for persistent hypoglycemia and re-evaluating active insulin orders before administering the next dose. Warning Vesicant/Irritant Medication , Routine enoxaparin (Lovenox) (40 mg/0.4 mL) subcutaneous injection 40 mg 40 mg, Subcutaneous, NIGHTLY, First dose on Sat01/23/24 at 2100, Until Discontinued, Routine Given 01/27/2024 8:29 PM EST 40 mg Given 2024 8:05 PM EST 40 mg Given 01/25/2024 8:20 PM EST 40 mg enoxaparin (Lovenox) (40 mg/0.4 mL) subcutaneous injection 40 mg 40 mg, Subcutaneous, NIGHTLY, First dose on Sat01/29/24 at 2100, Until Discontinued, Routine Given 01/31/2024 8:17 PM EST 40 mg Given 01/30/2024 8:46 PM EST 40 mg Given 01/29/2024 9:13 PM EST 40 mg fentaNYL (PF) (50 mcg/mL) injection 50 mcg 50 mcg, Intravenous, EVERY 3 MIN PRN, Starting on Sat01/23/24 at 0611, Until Sat01/23/24 at 0754, Pain, epidural placement, Recovery (Recovery-Hospital Unit), Routine Given 01/23/2024 7:27 AM EST 2 5 mcg Given 01/23/2024 7:25 AM EST 25 mcg Given 01/23/2024 7:18 AM EST 50 mcg furosemide (Lasix) (10 mg/mL) injection 20 mg 20 mg, Intravenous, ONCE, 1 dose, On Sat01/28/24 at 0815 Given 01/28/2024 8:39 AM EST 20 mg glucagon (Glucagen) (1 mg/mL) injection solution 1 mg 1 mg, Intramuscular, EVERY 15 MIN PRN, Starting on Ammy 01/23/24 at 1717, Until 02/01/24 at 1452, Low blood sugar, ??Oral treatment preferred For Blood Glucose 50 to 70 mg/dL: ?? -??IF ABLE TO DRINK, give 120 mL juice or regular (not diet) soda - IF NPO, give 15 gram glucose 40% oral gel massaged into buccal mucosa - IF UNCONSCIOUS OR UNCOOPERATIVE, give 25 gram dextrose IV - IF NO IV ACCESS, give 1 mg glucagon IM. For Blood Glucose LESS than 50 mg/dL: ?? -??IF ABLE TO DRINK, give 240 mL juice or regular (not diet) soda - IF NPO, give 30 gram glucose 40% oral gel massaged into buccal mucosa - IF UNCONSCIOUS OR UNCOOPERATIVE, give 25 gram dextrose IV - IF NO IV ACCESS, 1 mg glucagon IM. Recheck BG in 15 minutes. May repeat juice/soda, gel, dextrose or glucagon once per episode. Notify provider if hypoglycemia does not resolve after two treatments. Providers should consider the following: administering longer-acting treatments for the duration of active insulin or hypoglycemia agent for persistent hypoglycemia and re-evaluating active insulin orders before administering the next dose., Routine glucose (Glutose) 40% oral geL 15-30 g of glucose, Buccal, EVERY 15 MIN PRN, Starting on Ammy 01/23/24 at 1717, Until 02/01/24 at 1452, Low blood sugar, ??Oral treatment preferred For Blood Glucose 50 to 70 mg/dL: ?? -??IF ABLE TO DRINK, give 120 mL juice or regular (not diet) soda - IF NPO, give 15 gram glucose 40% oral gel massaged into buccal mucosa - IF UNCONSCIOUS OR UNCOOPERATIVE, give 25 gram dextrose IV - IF NO IV ACCESS, give 1 mg glucagon IM. For Blood Glucose LESS than 50 mg/dL: ?? -??IF ABLE TO DRINK, give 240 mL juice or regular (not diet) soda - IF NPO, give 30 gram glucose 40% oral gel massaged into buccal mucosa - IF UNCONSCIOUS OR UNCOOPERATIVE, give 25 gram dextrose IV - IF NO IV ACCESS, 1 mg glucagon IM. Recheck BG in 15 minutes. May repeat juice/soda, gel, dextrose or glucagon once per episode. Notify provider if hypoglycemia does not resolve after two treatments. Providers should consider the following: administering longer-acting treatments for the duration of active insulin or hypoglycemia agent for persistent hypoglycemia and re-evaluating active insulin orders before administering the next dose. 1 tube of Glutose-15 contains 15 grams of glucose (net weight of tube = 37.5 grams.), Routine heparin (pf) (porcine) (100 units/mL) flush 5 mL syringe 500 Units 500 Units (5 mL), Intravenous, DAILY PRN, 1 dose, Starting on Sat01/31/24 at 1256, Until 02/01/24 at 1452, Line Care, Terminal Flush for de-accessing of Implantable Port, Routine heparin (porcine) (5,000 units/1 mL) subcutaneous injection 5,000 Units 5,000 Units, Subcutaneous, ONCE, 1 dose, On Ammy 01/23/24 at 0700, Give after epidural placed. , Day of Surgery (Day of Procedure), Routine Given 01/23/2024 7:48 AM EST 5,000 Un its hyaluronidase (Amphadase) (150 units/mL) solution for extravasation - diluted to 15 units/mL 1-10 mL 1-10 mL, Subcutaneous, ONCE, 1 dose, On Sat01/27/24 at 0800, Subcutaneous preferred, but IV may also be used. Hyaluronidase is supplied in a 1-mL vial at a concentration of 150 units/mL Dilution Instructions: 1. Dilute 1 mL of the 150 unit/mL solution with 9 mL of sodium chloride 0.9%. This yields the desired concentration of 15 units/mL. 2. Draw up 1 mL increments of the 15 unit/mL diluted solution into a 1-mL syringe with a 26-gauge needle. 3. Instill 0.2 mL aliquots of the 15 unit/mL solution at least every 2 to 3 centimeters or five evenly spaced aliquots subcutaneously around the periphery of the infiltrated area. Use a new 26-gauge needle for each injection. This is best done within one hour of the extravasation. Discard the remaining solution., STAT Given 01/27/2024 8:11 AM EST 2 mLs hydrALAZINE (Apresoline) (20 mg/mL) injection 10 mg 10 mg, Intravenous, ONCE, 1 dose, On 01/27/24 at 1945 Given 01/27/2024 7:35 PM EST 10 mg hydrALAZINE (Apresoline) (20 mg/mL) injection 10 mg 10 mg, Intravenous, EVERY 6 HOURS PRN, Starting on 01/28/24 at 1437, Until 02/01/24 at 1452, High Blood Pressure, for SBP > 180, DBP >90 Given 01/29/2024 8:17 AM EST 10 mg hydrALAZINE (Apresoline) (20 mg/mL) injection 5 mg 5 mg, Intravenous, ONCE, 1 dose, On 01/27/24 at 1915 Given 01/27/2024 7:00 PM EST 5 mg HYDROmorphone (pf) (10 mcg/mL), BUPivacaine (pf) 0.1% in sodium chloride 0.9% 250 mL epidural Epidural, Epidural Type: Continuous + PCEA, Continuous Rate: 3 mL/hr, PCEA Dose: 3 mL, PCEA Frequency: Every 20 minutes, 1 Hour Limit: 30 mL/hr, Maximum rate for continuous infusion is 16 mL per hour Maximum intermittent bolus is 15 mL Continuous = basal rate for epidural infusion PCEA (Patient Controlled Epidural Analgesia) = bolus from infusion delivered after patient presses demand button PIEB (Programmed Intermittent Epidural Bolus) = bolus from infusion delivered on a programmed frequency, Recovery (Recovery-Hospital Unit) New Bag 01/29/2024 5:55 AM EST 250 mLs New Bag 01/28/2024 5:37 AM EST 250 mLs New Bag 01/27/2024 6:30 AM EST 250 mLs HYDROmorphone (pf) (10 mcg/mL), BUPivacaine (pf) 0.1% in sodium chloride 0.9% 250 mL epidural Epidural, Epidural Type: PCEA Only, PCEA Dose: 3 mL, PCEA Frequency: Every 20 minutes, 1 Hour Limit: 30 mL/hr, Maximum rate for continuous infusion is 16 mL per hour Maximum intermittent bolus is 15 mL Continuous = basal rate for epidural infusion PCEA (Patient Controlled Epidural Analgesia) = bolus from infusion delivered after patient presses demand button PIEB (Programmed Intermittent Epidural Bolus) = bolus from infusion delivered on a programmed frequency, Recovery (Recovery-Hospital Unit) Rate/Dose Change 01/29/2024 7:15 AM EST HYDROmorphone (PF) (Dilaudid) injection 0.2 mg 0.2 mg, Intravenous, ONCE, 1 dose, On Ammy 21/24 at 0630, Recovery (Recovery-Hospital Unit), Routine Given 01/23/2024 7:48 AM EST 0.2 mg insulin glargine-ygfn (Semglee) (100 unit/mL) subcutaneous injection vial 15 Units 15 Units, Subcutaneous, DAILY, First dose on Sat01/26/24 at 0900, Until Discontinued, Routine Given 01/28/2024 8:54 AM EST 15 Units Given 01/27/2024 8:23 AM EST 15 Units Given 2024 8:23 AM EST 15 Units insulin glargine-ygfn (Semglee) (100 unit/mL) subcutaneous injection vial 20 Units 20 Units, Subcutaneous, DAILY, First dose (after last modification) on Sat01/29/24 at 0945, Until Discontinued, Routine Given 02/01/2024 8:53 AM EST 20 Unit s Given 01/31/2024 8:24 AM EST 20 Units Given 01/30/2024 9:53 AM EST 20 Units insulin lispro (HumaLOG;Admelog) (100 unit/mL) subcutaneous injection vial 0-8 Units 0-8 Units, Subcutaneous, 3 TIMES DAILY WITH MEALS, First dose on Sat01/31/24 at 1400, Until Discontinued, MEAL ASSOCIATED Give 1 unit for every 10 grams carbohydrate. Hold if not eating or if BG less than 70 mg/dL. , Routine Given 01/31/2024 5:47 PM EST 3 Units insulin lispro (HumaLOG;Admelog) (100 unit/mL) subcutaneous injection vial 1-6 Units 1-6 Units, Subcutaneous, EVERY 4 HOURS SCHEDULED, First dose on Sat01/24/24 at 1230, Until Discontinued, CORRECTION BOLUS [1-6 Units] Moderate [...] - If recheck BG is GREATER than or EQUAL to 240, give 6 units and repeat BG in 2 hours (no more than 3 times) & call for new insulin orders. DO NOT hold if NPO, unless specifically directed to do so by written order. ?? Per Inpatient Subcutaneous Insulin Policy, recheck a BG of greater than 240 mg/dL in 2 hours., Routine Given 02/01/2024 8:54 AM EST 3 Units Given 02/01/2024 4:19 AM EST 1 Units Given 01/31/2024 8:20 PM EST 6 Units insulin lispro (HumaLOG;Admelog) (100 unit/mL) subcutaneous injection vial 2-12 Units 2-12 Units, Subcutaneous, EVERY 4 HOURS SCHEDULED, First dose on Ammy 01/23/24 at 1745, Until Discontinued, CORRECTION BOLUS [2-12 Units] Resistant Sliding Scale (BG in mg/dL) Correction Factor 10 (1 unit of insulin is expected to drop the glucose 10 mg/dL) ?? BG 140 - 160 Give 2 units [...] - If recheck BG is GREATER than or EQUAL to 240, give 12 units and repeat BG in 2 hours (no more than 3 times) & call for new insulin orders. DO NOT hold if NPO, unless specifically directed to do so by written order. ?? Per Inpatient Subcutaneous Insulin Policy, recheck a BG of greater than 240 mg/dL in 2 hours, Routine Given 01/23/2024 5:33 PM ES T 4 Units iohexoL (Omnipaque) (350 mg/mL) solution 0-200 mL 0-200 mL, Intravenous, ONCE PRN, 1 dose, Starting on Sat01/27/24 at 0355, Until Sat01/27/24 at 0355, Per Protocol, Warning Vesicant/Irritant Medication , Radiology Contrast, Routine Given 01/27/2024 3:55 AM EST 120 mLs isosorbide mononitrate CR (Imdur) tablet 30 mg 30 mg, Oral, NIGHTLY, First dose on Sat01/29/24 at 2100, Until Discontinued, DO NOT CRUSH OR OPEN, Routine Given 01/31/2024 8:16 PM EST 30 mg Given 01/30/2024 8:46 PM EST 30 mg Given 01/29/2024 9:14 PM EST 30 mg labetaloL (Normodyne) (5 mg/mL) injection solution 10 mg 10 mg, Intravenous, EVERY 4 HOURS PRN, Starting on 01/26/24 at 0435, Until Sat01/28/24 at 0757, High Blood Pressure, Please give for SBP>160 or DBP>90. Hold for HR<60, Routine Given 01/28/2024 2:05 AM EST 10 mg Given 01/27/2024 6:45 PM EST 10 mg Given 01/27/2024 8:22 AM EST 10 mg labetaloL (Normodyne) (5 mg/mL) injection solution 20 mg 20 mg, Intravenous, ONCE, 1 dose, On Sat01/27/24 at 2015, STAT Given 01/27/2024 8:08 PM EST 20 mg labetaloL (Normodyne) (5 mg/mL) injection solution 20 mg 20 mg, Intravenous, ONCE, 1 dose, On Sat01/28/24 at 0345, Routine Given 01/28/2024 3:22 AM EST 20 mg lactated Ringers 500 mL IV bolus Intravenous, ONCE, 1 dose, On Ammy 01/23/24 at 1815 New Bag 01/23/2024 5:45 PM EST lactated ringers infusion 1,000 mL, at 100 mL/hr, Intravenous, CONTINUOUS, Starting on Ammy 01/23/24 at 0700, Until Ammy 01/23/24 at 1717, Day of Surgery (Day of Procedure) New Bag 01/23/2024 10:02 AM EST New Bag 01/23/2024 6:45 AM EST 1,000 mLs 100 mL/hr lactated ringers infusion 1,000 mL, at 100 mL/hr, Intravenous, CONTINUOUS, Starting on Ammy 01/23/24 at 1730, Until Sat01/24/24 at 1005, Recovery (Recovery-Hospital Unit) Rate/Dose Verify 01/24/2024 7:00 AM EST 10 0 mL/hr New Bag 01/24/2024 1:50 AM EST 1,000 mLs 100 mL/hr New Bag 01/23/2024 6:00 PM EST 1,000 mLs 100 mL/hr [id number] DR (on 24) 24,000-76,000 -120,000 unit per capsule 1 capsule 1 capsule, Oral, 3 TIMES DAILY WITH MEALS, First dose on Sat01/31/24 at 1400, Until Discontinued, Routine Given 02/01/2024 8:51 AM EST 1 capsule Given 01/31/2024 5:47 PM EST 1 capsule lisinopriL (Zestril) tablet 40 mg 40 mg, Oral, DAILY, First dose on Sat01/29/24 at 1145, Until Discontinued, Hold for SBP< 130mmhg, Routine Given 02/01/2024 8:51 AM EST 40 mg Given 01/31/2024 8:20 AM EST 40 mg Given 01/30/2024 9:35 AM EST 40 mg melatonin tablet 6 mg 6 mg, Oral, NIGHTLY PRN, Starting on Sat01/31/24 at 1757, Until Sat02/01/24 at 1452, insomnia/sleep, Routine Given 01/31/2024 8:16 PM EST 6 mg metoclopramide (Reglan) (5 mg/mL) injection 10 mg 10 mg, Intravenous, EVERY 6 HOURS, First dose on Sat01/28/24 at 0715, Until Discontinued, Doses greater than 10mg should be diluted into 50ml NS. Given 02/01/2024 8:51 AM EST 10 mg Given 02/01/2024 1:15 AM EST 10 mg Given 01/31/2024 8:17 PM EST 10 mg metoprolol (LOPRESSOR) injection 5 mg 5 mg, Intravenous, EVERY 6 HOURS, First dose on Sat01/28/24 at 0815, Until Discontinued, Hold if HR <60, SBP <100 Given 01/29/2024 8:17 AM EST 5 mg Given 01/29/2024 1:57 AM EST 5 mg Given 01/28/2024 8:22 PM EST 5 mg midazolam (pf) (Versed) (1 mg/mL) injection 1 mg 1 mg, Intravenous, EVERY 3 MIN PRN, Starting on Ammy 01/23/24 at 0611, Until Ammy 01/23/24 at 0754, Sleep, Anxiety, epidural placement, Recovery (Recovery-Hospital Unit), Routine Given 01/23/2024 7:40 AM EST 1 mg Given 01/23/2024 7:35 AM EST 1 mg Given 01/23/2024 7:23 AM EST 1 mg pantoprazole (Protonix) injection 40 mg 40 mg, Intravenous, 2 TIMES DAILY, First dose on Sat01/23/24 at 2100, Until Discontinued, Reconstitute with 10 mL of normal saline to a concentration of 4 mg/mL and inject slowly over 2 minutes. Reconstitute with 10 mL of normal saline to a concentration of 4 mg/mL and inject slowly over 2 minutes., Routine Given 01/29/2024 8:17 AM EST 4 0 mg Given 01/28/2024 8:22 PM EST 40 mg Given 01/28/2024 8:39 AM EST 40 mg pantoprazole EC (Protonix) tablet 40 mg 40 mg, Oral, 2 TIMES DAILY, First dose on Sat01/29/24 at 2100, Until Discontinued Given 02/01/2024 8:51 AM EST 40 mg Given 01/31/2024 8:16 PM EST 40 mg Given 01/31/2024 8:20 AM EST 40 mg PHENYLephrine (Zahraa-Synephrine) (80 mcg/mL) in sodium chloride 0.9% 250 mL infusion 0-80 mcg/min (0-60 mL/hr), Intravenous, CONTINUOUS, Starting on Ammy 01/23/24 at 1815, Until Ammy 01/23/24 at 1908, Titrate to maintain mean arterial pressure (MAP) greater than 65 mmHg. Start at 40 mcg/min. Increase/decrease by 20 mcg/min every 10 minutes. Do not exceed 180 mcg/min. Please call anesthesia provider if unable to maintain MAP goal as ordered. Per the Vasopressor Administration Policy, [place] 2657: A central line must be placed for the administration of vasopressor infusions lasting longer than 8 hours. Warning Vesicant/Irritant Medication , PACU Recovery Rate/Dose Change 01/23/2024 6:24 PM EST 30 mcg/min 22.5 mL/hr Rate/Dose Change 01/23/2024 6:06 PM EST 20 mcg/min 15 mL/h r New Bag 01/23/2024 6:02 PM EST 30 mcg/min 22.5 mL/hr PHENYLephrine (Zahraa-Synephrine) (80 mcg/mL) in sodium chloride 0.9% 250 mL infusion 0-80 mcg/min (0-60 mL/hr), Intravenous, CONTINUOUS, Starting on Ammy 01/23/24 at 2145, Until 01/25/24 at 1642, Titrate to keep SBP greater than 100 mmHg. Start at 50 mcg/min. Increase/decrease by 25 mcg/min every 10 minutes until goal reached. Do not exceed 180 mcg/min. Warning Vesicant/Irritant Medication Per the Vasopressor Administration Policy, [place] 265[address]: A central line must be placed for the administration of vasopressor infusions lasting longer than 8 hours. Warning Vesicant/Irritant Medication Rate/Dose Change 01/24/2024 7:22 AM EST 10 mcg/min 7.5 mL/hr Restarted 01/24/2024 7:16 AM EST 5 mcg/min 3.8 mL/hr Rate/Dose Change 01/24/2024 6:13 AM EST 10 mcg/min 7.5 mL/ hr piperacillin-tazobactam (Zosyn) 3.375 g vial attach to sodium chloride 0.9% 50 mL Mini-Bag Plus 3.375 g, Intravenous, EVERY 8 HOURS, 2 doses, First dose on Ammy 01/23/24 at 2100, Last dose on Sat01/24/24 at 0500, Administer over 4 Hours, Warning Vesicant/Irritant Medication Per senior project engineer labeling, do not administer or Y-site with lactated ringers., Recovery (Recovery-Hospital Unit), Indication for (Active or Suspected): Prophylaxis New Bag 01/24/2024 4:20 AM EST 3.375 g 12.5 mL /hr New Bag 01/23/2024 8:43 PM EST 3.375 g 12.5 mL/hr piperacillin-tazobactam (Zosyn) 3.375 g vial attach to sodium chloride 0.9% 50 mL Mini-Bag Plus 3.375 g, Intravenous, EVERY 8 HOURS, 21 doses, First dose on Sat01/27/24 at 1345, Last dose on Sat02/03/24 at 0545, Administer over 4 Hours, Warning Vesicant/Irritant Medication Per senior project engineer labeling, do not administer or Y-site with lactated ringers., Indication for (Active or Suspected): GI/Intra-abdominal New Bag 02/01/2024 5:36 AM EST 3.375 g 12.5 mL/hr Bag 01/31/2024 8:28 PM EST 3.375 g 12.5 mL/hr 01/31/2024 2:20 PM EST 3.375 g 12.5 mL/hr potassium chloride 10 mEq in sterile water 100 mL infusion 10 mEq, Intravenous, EVERY HOUR, 4 doses, First dose on Sat01/27/24 at 0300, Last dose on Sat01/27/24 at 0600, Administer over 60 Minutes, Doses of 20 mEq or greater require a Central Line Warning Vesicant/Irritant Medication 01/27/2024 6:02 AM EST 10 mEq 100 mL/hr 01/27/2024 5:03 AM EST 10 mEq 100 mL/hr 01/27/2024 3:28 AM EST 10 mEq 100 mL/hr potassium chloride 10 mEq in sterile water 100 mL infusion 10 mEq, Intravenous, EVERY HOUR, 6 doses, First dose on Sat01/28/24 at 0600, Last dose on Sat01/28/24 at 1100, Administer over 60 Minutes, For serum K less than 3.3 mMol/L - Give 10 mEq IV x six doses (60 mEq total) Serum potassium levels should be re-checked 1.5 hours after completion of last dose & prior to administration of any additional doses. Warning Vesicant/Irritant Medication 01/28/2024 12:17 PM EST 10 mEq 100 mL/hr 01/28/2024 11:18 AM EST 10 mEq 100 mL/hr 01/28/2024 10:11 AM EST 10 mEq 100 mL/hr potassium chloride ER (Klor-Con M) crystal tablet 40 mEq 40 mEq, Oral, ONCE, 1 dose, On Sat01/27/24 at 0245, potassium chloride ER particle/crystal tablets (Klor-Con M) may be broken in half and each half swallowed separately. Tablets can be dissolved in ~4 ounces of water; allow ~2 minutes to dissolve, stir well and drink immediately. Do not crush, chew, or suck on tablet., Routine Given 01/27/2024 2:25 AM EST 40 mEq potassium phosphate 15 mMol in sodium chloride 0.9% 250 mL infusion 15 mmol, Intravenous, ONCE, 1 dose, On 01/25/24 at 0730, Administer over 4 Hours, Administer over 4-6 hours New Bag 01/25/2024 8:32 AM EST 15 mmol 62.5 mL/hr sodium chloride 0.9 % (flush) (BD PosiFlush Normal Saline 0.9) flush 10 mL 10 mL, Intravenous, DAILY PRN, Starting on Sat01/24/24 at 0439, Until 02/01/24 at 1452, For use when accessing Implantable Port, Routine sodium chloride 0.9 % (flush) (BD PosiFlush Normal Saline 0.9) flush 5 mL 5 mL, Intravenous, 2 TIMES DAILY, First dose on Ammy 01/23/24 at 2100, Until Discontinued, Recovery (Recovery-Hospital Unit), Routine Given 02/01/2024 8:52 AM EST 5 mLs Given 01/31/2024 8:18 PM EST 5 mLs Given 01/31/2024 8:25 AM EST 5 mLs tamsulosin (Flomax) capsule 0.4 mg 0.4 mg, Oral, NIGHTLY, First dose on Sat01/24/24 at 2100, Until Discontinued, DO NOT CRUSH OR CHEW, Routine Given 01/31/2024 8:16 PM EST 0.4 mg Given 01/30/2024 8:46 PM EST 0.4 mg Given 01/29/2024 9:14 PM EST 0.4 mg timoloL (Timoptic) 0.5 % ophthalmic solution 1 drop 1 drop, Right Eye, 2 TIMES DAILY, First dose on 01/27/24 at 1115, Until Discontinued, Routine Given 02/01/2024 8:52 AM EST 1 drop Given 01/31/2024 8:17 PM EST 1 drop Given 01/31/2024 8:25 AM EST 1 drop documented in this encounter Active and Recently Administered Medications Times are shown in EST. Scheduled Medication Order 01/30/2024 01/31/2024 02/01/2024 acetaminophen (Tylenol) tablet 975 mg 975 mg, Oral, EVERY 6 HOURS SCHEDULED, First dose on Ammy 01/30/24 at 0800, Until Discontinued, Maximum dose of acetaminophen is 4,000 mg from all sources in 24 hours. When ordered for pain, acetaminophen should be given even when other ordered pain medications are indicated., Routine 0945 (Given - Provider: Bruno Frey RN)1347 (Given - Provider: Bruno Frey RN)1804 (Given - Provider: Bruno Frey RN) 0039 (Given - Provider: Lilly Yi, AYE)0506 (Given - Provider: Lilly Yi, RN)1217 (Given - Provider: Julisa De La O RN)1747 (Given - Provider: Julisa De La O RN) 0008 (Given - Provider: Jonathan Velasco, RN)0536 (Given - Provider: Jonathan Velasco, RN)1200 (Due) Adult TPN (Custom) (CANCELED) Central, Intravenous, at 65 mL/hr, Continuous (TPN), 5 doses, First dose (after last reorder) on Sat01/29/24 at 1800, Last dose on Sat02/02/24 at 1800, Administer over 24 Hours 1738 (Stopped - Provider: Bruno Frey RN)1804 (New Bag - Provider: Bruno Frey RN) 0810 (Stopped - Provider: Julisa De La O RN - Comment: Time automatically adjusted from order being discontinued) amLODIPine (Norvasc) tablet 10 mg 10 mg, Oral, DAILY, First dose on Sat01/29/24 at 1145, Until Discontinued, Hold for SBP <120mmHg, Routine 0936 (Given - Provider: Bruno Frey RN) 0820 (Given - Provider: Julisa De La O RN) 0851 (Given - Provider: Julisa De La O RN) aspirin EC tablet 81 mg 81 mg, Oral, DAILY, First dose on Ammy 01/30/24 at 0900, Until Discontinued, Routine 0936 (Given - Provider: Bruno Frey RN) 0820 (Given - Provider: Julisa De La O RN) 0851 (Given - Provider: Julisa De La O RN) atorvastatin (Lipitor) tablet 80 mg 80 mg, Oral, EVERY EVENING, First dose on Sat01/29/24 at 1700, Until Discontinued, Routine 1626 (Given - Provider: Bruno Frey RN) 1747 (Given - Provider: Julisa De La O RN) carvediloL (Coreg) tablet 25 mg 25 mg, Oral, DAILY, First dose on Sat01/24/24 at 0900, Until Discontinued, Routine 0935 (Given - Provider: Bruno Frey RN) 0820 (Given - Provider: Julisa De La O RN) 0851 (Given - Provider: Julisa De La O RN) chlorthalidone (Hygroton) tablet 25 mg 25 mg, Oral, DAILY, First dose on Sat01/29/24 at 1145, Until Discontinued, Routine 0936 (Given - Provider: Bruno Frey RN) 0820 (Given - Provider: Julisa De La O RN) 0851 (Given - Provider: Julisa De La O RN) enoxaparin (Lovenox) (40 mg/0.4 mL) subcutaneous injection 40 mg 40 mg, Subcutaneous, NIGHTLY, First dose on Sat01/29/24 at 2100, Until Discontinued, Routine 2045 (Given - Provider: Lilly Yi RN) 2016 (Given - Provider: Jonathan Velasco RN) insulin glargine-ygfn (Semglee) (100 unit/mL) subcutaneous injection vial 20 Units 20 Units, Subcutaneous, DAILY, First dose (after last modification) on Sat01/29/24 at 0945, Until Discontinued, Routine 0953 (Given - Provider: Bruno Frey RN) 0824 (Given - Provider: Julisa De La O RN) 0853 (Given - Provider: Julisa De La O RN) insulin lispro (HumaLOG;Admelog) (100 unit/mL) subcutaneous injection vial 0-8 Units 0-8 Units, Subcutaneous, 3 TIMES DAILY WITH MEALS, First dose on Sat01/31/24 at 1400, Until Discontinued, MEAL ASSOCIATED Give 1 unit for every 10 grams carbohydrate. Hold if not eating or if BG less than 70 mg/dL. , Routine 1400 (Not Given - Provider: Julisa De La O RN - Reason: See comment - Comment: duplicate)174 (Given - Provider: Julisa De La O RN - Comment: 35.5 carbs eaten for dinner) 0800 (Not Given - Provider: Julisa De La O RN - Reason: Order parameters not met - Comment: 2.5G Carbs)1200 (Due) insulin lispro (HumaLOG;Admelog) (100 unit/mL) subcutaneous injection vial 1-6 Units(Linked Group 1) 1-6 Units, Subcutaneous, EVERY 4 HOURS SCHEDULED, First dose on Sat01/24/24 at 1230, Until Discontinued, CORRECTION BOLUS [1-6 Units] Moderate [...] - If recheck BG is GREATER than or EQUAL to 240, give 6 units and repeat BG in 2 hours (no more than 3 times) & call for new insulin orders. DO NOT hold if NPO, unless specifically directed to do so by written order. ?? Per Inpatient Subcutaneous Insulin Policy, recheck a BG of greater than 240 mg/dL in 2 hours., Routine 0351 (Given - Provider: Lilly Yi RN)0936 (Given - Provider: Bruno Frey, AYE)1347 (Given - Provider: Bruno Frey, RN)1805 (Given - Provider: Bruno Frey, RN)2048 (Given - Provider: Lilly Yi RN) 0000 (Not Given - Provider: Lilly Yi RN - Reason: Order parameters not met)0511 (Given - Provider: Lilly Yi RN)0821 (Given - Provider: Julisa De La O, AYE)1200 (Given - Provider: Julisa De La O RN)1750 (Given - Provider: Julisa De La O RN)2020 (Given - Provider: Jonathan Velasco, RN) 0000 (Not Given - Provider: Jonathan Velasco, AYE - Reason: Order parameters not met)0419 (Given - Provider: Jonathan Velasco, AYE)0854 (Given - Provider: Julisa De La O, AYE)1200 (Due) isosorbide mononitrate CR (Imdur) tablet 30 mg 30 mg, Oral, NIGHTLY, First dose on Sat01/29/24 at 2100, Until Discontinued, DO NOT CRUSH OR OPEN, Routine 2045 (Given - Provider: Lilly Yi, AYE) 2015 (Given - Provider: Jonathan Velasco, RN) mzkhqg-fdzatisw-gsckgin DR (Creon 24) 24,000-76,000 -120,000 unit per capsule 1 capsule 1 capsule, Oral, 3 TIMES DAILY WITH MEALS, First dose on Sat01/31/24 at 1400, Until Discontinued, Routine 1400 (Not Given - Provider: Julisa De La O RN - Reason: Patient/family refused)1747 (Given - Provider: Julisa De La O RN) 0851 (Given - Provider: Julisa De La O RN)1200 (Due) lisinopriL (Zestril) tablet 40 mg 40 mg, Oral, DAILY, First dose on Sat01/29/24 at 1145, Until Discontinued, Hold for SBP< 130mmhg, Routine 0935 (Given - Provider: Bruno Frey, AYE) 0820 (Given - Provider: Julisa De La O RN) 0851 (Given - Provider: Julisa De La O RN) metoclopramide (Reglan) (5 mg/mL) injection 10 mg 10 mg, Intravenous, EVERY 6 HOURS, First dose on Sat01/28/24 at 0715, Until Discontinued, Doses greater than 10mg should be diluted into 50ml NS. 0151 (Given - Provider: Lilly Yi, AYE)0617 (Given - Provider: Lilly Yi, AYE)1626 (Given - Provider: Bruno Frey, AYE)2046 (Given - Provider: Lilly Yi, AYE) 0039 (Given - Provider: Lilly Yi, AYE)0630 (Given - Provider: Lilly Yi, AYE)1415 (Given - Provider: Julisa De La O, AYE)2017 (Given - Provider: Jonathan Velasco, AYE) 0115 (Given - Provider: Jonathan Velasco, AYE)0851 (Given - Provider: Julisa De La O RN) pantoprazole EC (Protonix) tablet 40 mg 40 mg, Oral, 2 TIMES DAILY, First dose on Sat01/29/24 at 2100, Until Discontinued 0936 (Given - Provider: Bruno Frey RN)2045 (Given - Provider: Lilly Yi RN) 0820 (Given - Provider: Julisa De La O RN)2015 (Given - Provider: Jonathan Velasco RN) 0851 (Given - Provider: Julisa De La O RN) piperacillin-tazobactam (Zosyn) 3.375 g vial attach to sodium chloride 0.9% 50 mL Mini-Bag Plus 3.375 g, Intravenous, EVERY 8 HOURS, 21 doses, First dose on Sat01/27/24 at 1345, Last dose on Sat02/03/24 at 0545, Administer over 4 Hours, Warning Vesicant/Irritant Medication Per senior project engineer labeling, do not administer or Y-site with lactated ringers., Indication for (Active or Suspected): GI/Intra-abdominal 0113 (Stopped - Provider: Lilly Yi RN)0451 (New Bag - Provider: Lilly Yi RN)0851 (Stopped - Provider: Bruno Frey RN)1626 (New Bag - Provider: Bruno Frey RN)2025 (Stopped - Provider: Lilly Yi RN)211 (New Bag - Provider: Lilly Yi RN) 0119 (Stopped - Provider: Lilly Yi RN)0507 (New Bag - Provider: Lilly Yi RN)0907 (Stopped - Provider: Julisa De La O RN)1420 (New Bag - Provider: Julisa De La O RN)1820 (Stopped - Provider: Julisa De La O RN)2027 (New Bag - Provider: Jonathan Velasco, AYE)214 (Stopped - Provider: Jonathan Velasco, AYE)214 (Canceled Entry - Provider: Jonathan Velasco RN - Reason: See comment) 0536 (New Bag - Provider: Jonathan Velasco RN)0936 (Stopped - Provider: Julisa De La O AYE) sodium chloride 0.9 % (flush) (BD PosiFlush Normal Saline 0.9) flush 5 mL 5 mL, Intravenous, 2 TIMES DAILY, First dose on Ammy 01/23/24 at 2100, Until Discontinued, Recovery (Recovery-Hospital Unit), Routine 0937 (Given - Provider: Bruno Frey, AYE)2046 (Given - Provider: Lilly Yi, AYE) 0825 (Given - Provider: Julisa De La O RN)2017 (Given - Provider: Jonathan Velasco, AYE) 0852 (Given - Provider: Julisa De La O, AYE) tamsulosin (Flomax) capsule 0.4 mg 0.4 mg, Oral, NIGHTLY, First dose on Sat01/24/24 at 2100, Until Discontinued, DO NOT CRUSH OR CHEW, Routine 2045 (Given - Provider: Lilly Yi, AYE) 2015 (Given - Provider: Jonathan Velasco, AYE) timoloL (Timoptic) 0.5 % ophthalmic solution 1 drop 1 drop, Right Eye, 2 TIMES DAILY, First dose on 01/27/24 at 1115, Until Discontinued, Routine 0937 (Given - Provider: Bruno Frey, AYE)2048 (Given - Provider: Lilly Yi, AYE) 0825 (Given - Provider: Julisa De La O, AYE)2016 (Given - Provider: Jonathan Velasco, AYE) 0852 (Given - Provider: Julisa De La O, AYE) PRN Medication Order 01/30/2024 01/31/2024 02/01/2024 dextrose 50% intravenous solution 25 g(Linked Group 2) 25 g, Intravenous, EVERY 15 MIN PRN, Starting on Ammy 01/23/24 at 1717, Until 02/01/24 at 1452, Low blood sugar, ??Oral treatment preferred For Blood Glucose 50 to 70 mg/dL: ?? -??IF ABLE TO DRINK, give 120 mL juice or regular (not diet) soda - IF NPO, give 15 gram glucose 40% oral gel massaged into buccal mucosa - IF UNCONSCIOUS OR UNCOOPERATIVE, give 25 gram dextrose IV - IF NO IV ACCESS, give 1 mg glucagon IM. For Blood Glucose LESS than 50 mg/dL: ?? -??IF ABLE TO DRINK, give 240 mL juice or regular (not diet) soda - IF NPO, give 30 gram glucose 40% oral gel massaged into buccal mucosa - IF UNCONSCIOUS OR UNCOOPERATIVE, give 25 gram dextrose IV - IF NO IV ACCESS, 1 mg glucagon IM. Recheck BG in 15 minutes. May repeat juice/soda, gel, dextrose or glucagon once per episode. Notify provider if hypoglycemia does not resolve after two treatments. Providers should consider the following: administering longer-acting treatments for the duration of active insulin or hypoglycemia agent for persistent hypoglycemia and re-evaluating active insulin orders before administering the next dose. Warning Vesicant/Irritant Medication , Routine glucagon (Glucagen) (1 mg/mL) injection solution 1 mg(Linked Group 2) 1 mg, Intramuscular, EVERY 15 MIN PRN, Starting on Ammy 01/23/24 at 1717, Until 02/01/24 at 1452, Low blood sugar, ??Oral treatment preferred For Blood Glucose 50 to 70 mg/dL: ?? -??IF ABLE TO DRINK, give 120 mL juice or regular (not diet) soda - IF NPO, give 15 gram glucose 40% oral gel massaged into buccal mucosa - IF UNCONSCIOUS OR UNCOOPERATIVE, give 25 gram dextrose IV - IF NO IV ACCESS, give 1 mg glucagon IM. For Blood Glucose LESS than 50 mg/dL: ?? -??IF ABLE TO DRINK, give 240 mL juice or regular (not diet) soda - IF NPO, give 30 gram glucose 40% oral gel massaged into buccal mucosa - IF UNCONSCIOUS OR UNCOOPERATIVE, give 25 gram dextrose IV - IF NO IV ACCESS, 1 mg glucagon IM. Recheck BG in 15 minutes. May repeat juice/soda, gel, dextrose or glucagon once per episode. Notify provider if hypoglycemia does not resolve after two treatments. Providers should consider the following: administering longer-acting treatments for the duration of active insulin or hypoglycemia agent for persistent hypoglycemia and re-evaluating active insulin orders before administering the next dose., Routine glucose (Glutose) 40% oral geL(Linked Group 2) 15-30 g of glucose, Buccal, EVERY 15 MIN PRN, Starting on Ammy 01/23/24 at 1717, Until 02/01/24 at 1452, Low blood sugar, ??Oral treatment preferred For Blood Glucose 50 to 70 mg/dL: ?? -??IF ABLE TO DRINK, give 120 mL juice or regular (not diet) soda - IF NPO, give 15 gram glucose 40% oral gel massaged into buccal mucosa - IF UNCONSCIOUS OR UNCOOPERATIVE, give 25 gram dextrose IV - IF NO IV ACCESS, give 1 mg glucagon IM. For Blood Glucose LESS than 50 mg/dL: ?? -??IF ABLE TO DRINK, give 240 mL juice or regular (not diet) soda - IF NPO, give 30 gram glucose 40% oral gel massaged into buccal mucosa - IF UNCONSCIOUS OR UNCOOPERATIVE, give 25 gram dextrose IV - IF NO IV ACCESS, 1 mg glucagon IM. Recheck BG in 15 minutes. May repeat juice/soda, gel, dextrose or glucagon once per episode. Notify provider if hypoglycemia does not resolve after two treatments. Providers should consider the following: administering longer-acting treatments for the duration of active insulin or hypoglycemia agent for persistent hypoglycemia and re-evaluating active insulin orders before administering the next dose. 1 tube of Glutose-15 contains 15 grams of glucose (net weight of tube = 37.5 grams.), Routine heparin (pf) (porcine) (100 units/mL) flush 5 mL syringe 500 Units 500 Units (5 mL), Intravenous, DAILY PRN, 1 dose, Starting on Sat01/31/24 at 1256, Until 02/01/24 at 1452, Line Care, Terminal Flush for de-accessing of Implantable Port, Routine hydrALAZINE (Apresoline) (20 mg/mL) injection 10 mg 10 mg, Intravenous, EVERY 6 HOURS PRN, Starting on Tu01/28/24 at 1437, Until 02/01/24 at 1452, High Blood Pressure, for SBP > 180, DBP >90 lidocaine (Xylocaine) 1% (10 mg/mL) injection 3 mg 3 mg (0.3 mL), Subcutaneous, ONCE PRN, 1 dose, Starting on Ammy 01/23/24 at 2030, Until 02/01/24 at 1452, for discomfort with PIV insertion, Recovery (Recovery-Hospital Unit), Routine melatonin tablet 6 mg 6 mg, Oral, NIGHTLY PRN, Starting on Sat01/31/24 at 1757, Until 02/01/24 at 1452, insomnia/sleep, Routine 2015 (Given - Provider: Ayush Velasco RN) ondansetron (pf) (Zofran) (2 mg/mL) injection 4-8 mg 4-8 mg, Intravenous, EVERY 8 HOURS PRN, Starting on Ammy 01/23/24 at 2030, Until 02/01/24 at 1452, Nausea, Vomiting, If multiple antiemetics are ordered, use ondansetron first May repeat 4mg times one in 30 minutes if ineffective. sodium chloride 0.9 % (flush) (BD PosiFlush Normal Saline 0.9) flush 10 mL 10 mL, Intravenous, DAILY PRN, Starting on Sat01/24/24 at 0439, Until 02/01/24 at 1452, For use when accessing Implantable Port, Routine sodium chloride 0.9 % (flush) (BD PosiFlush Normal Saline 0.9) flush 5-20 mL 5-20 mL, Intravenous, EVERY 1 MIN PRN, Starting on Ammy 01/23/24 at 2030, Until 02/01/24 at 1452, flush, Flush pertains to all indwelling lines. Flush per protocol found in the job aid using the link provided on this medication record., Recovery (Recovery-Hospital Unit), Routine Linked Groups Order Group 1: POCT Fingerstick Glucose (CANCELED) Routine, EVERY 4 HOURS, First occurrence on Sat01/24/24 at 1210, Until Specified, Consider choosing EVERY 4 HOURS [...] EVERY 4 HOURS SCHEDULED, First dose on Sat01/24/24 at 1230, Until Discontinued, CORRECTION BOLUS [1-6 Units] Moderate [...] - If recheck BG is GREATER than or EQUAL to 240, give 6 units and repeat BG in 2 hours (no more than 3 times) & call for new insulin orders. DO NOT hold if NPO, unless specifically directed to do so by written order. ?? Per Inpatient Subcutaneous Insulin Policy, recheck a BG of greater than 240 mg/dL in 2 hours., Routine Group 2: glucose (Glutose) 40% oral geLJump to med 15-30 g of glucose, Buccal, EVERY 15 MIN PRN, Starting on Ammy 01/23/24 at 1717, Until 02/01/24 at 1452, Low blood sugar, ??Oral treatment preferred For Blood Glucose 50 to 70 mg/dL: ?? -??IF ABLE TO DRINK, give 120 mL juice or regular (not diet) soda - IF NPO, give 15 gram glucose 40% oral gel massaged into buccal mucosa - IF UNCONSCIOUS OR UNCOOPERATIVE, give 25 gram dextrose IV - IF NO IV ACCESS, give 1 mg glucagon IM. For Blood Glucose LESS than 50 mg/dL: ?? -??IF ABLE TO DRINK, give 240 mL juice or regular (not diet) soda - IF NPO, give 30 gram glucose 40% oral gel massaged into buccal mucosa - IF UNCONSCIOUS OR UNCOOPERATIVE, give 25 gram dextrose IV - IF NO IV ACCESS, 1 mg glucagon IM. Recheck BG in 15 minutes. May repeat juice/soda, gel, dextrose or glucagon once per episode. Notify provider if hypoglycemia does not resolve after two treatments. Providers should consider the following: administering longer-acting treatments for the duration of active insulin or hypoglycemia agent for persistent hypoglycemia and re-evaluating active insulin orders before administering the next dose. 1 tube of Glutose-15 contains 15 grams of glucose (net weight of tube = 37.5 grams.), Routine Or dextrose 50% intravenous solution 25 gJump to med 25 g, Intravenous, EVERY 15 MIN PRN, Starting on Ammy 01/23/24 at 1717, Until 02/01/24 at 1452, Low blood sugar, ??Oral treatment preferred For Blood Glucose 50 to 70 mg/dL: ?? -??IF ABLE TO DRINK, give 120 mL juice or regular (not diet) soda - IF NPO, give 15 gram glucose 40% oral gel massaged into buccal mucosa - IF UNCONSCIOUS OR UNCOOPERATIVE, give 25 gram dextrose IV - IF NO IV ACCESS, give 1 mg glucagon IM. For Blood Glucose LESS than 50 mg/dL: ?? -??IF ABLE TO DRINK, give 240 mL juice or regular (not diet) soda - IF NPO, give 30 gram glucose 40% oral gel massaged into buccal mucosa - IF UNCONSCIOUS OR UNCOOPERATIVE, give 25 gram dextrose IV - IF NO IV ACCESS, 1 mg glucagon IM. Recheck BG in 15 minutes. May repeat juice/soda, gel, dextrose or glucagon once per episode. Notify provider if hypoglycemia does not resolve after two treatments. Providers should consider the following: administering longer-acting treatments for the duration of active insulin or hypoglycemia agent for persistent hypoglycemia and re-evaluating active insulin orders before administering the next dose. Warning Vesicant/Irritant Medication , Routine Or glucagon (Glucagen) (1 mg/mL) injection solution 1 mgJump to med 1 mg, Intramuscular, EVERY 15 MIN PRN, Starting on Ammy 01/23/24 at 1717, Until 02/01/24 at 1452, Low blood sugar, ??Oral treatment preferred For Blood Glucose 50 to 70 mg/dL: ?? -??IF ABLE TO DRINK, give 120 mL juice or regular (not diet) soda - IF NPO, give 15 gram glucose 40% oral gel massaged into buccal mucosa - IF UNCONSCIOUS OR UNCOOPERATIVE, give 25 gram dextrose IV - IF NO IV ACCESS, give 1 mg glucagon IM. For Blood Glucose LESS than 50 mg/dL: ?? -??IF ABLE TO DRINK, give 240 mL juice or regular (not diet) soda - IF NPO, give 30 gram glucose 40% oral gel massaged into buccal mucosa - IF UNCONSCIOUS OR UNCOOPERATIVE, give 25 gram dextrose IV - IF NO IV ACCESS, 1 mg glucagon IM. Recheck BG in 15 minutes. May repeat juice/soda, gel, dextrose or glucagon once per episode. Notify provider if hypoglycemia does not resolve after two treatments. Providers should consider the following: administering longer-acting treatments for the duration of active insulin or hypoglycemia agent for persistent hypoglycemia and re-evaluating active insulin orders before administering the next dose., Routine documented in this encounter Care Teams Environmental Analyst Relationship Specialty Start Date End Date Tristen Hunter MD [address] [place] [address] [place] [address] PCP - General Family Medicine 07/04/23 documented as of this encounter
--- OUTSIDE RECORDS SUMMARY | 2024-03-12 10:50 | XMS_ITS | Encounter Summary ---
[place] [address] Care Team Providers Care Sap Bi Developer Name Role Phone Tristen Hunter MD Primary Care Provider [phone] Encounter Details Date Type Department Care Team (Late st Contact Info) Description 01/24/2024 11:59 PM EST Anesthesia Event Intermediate [place] [address] Madan Lou RN Anesthesia Record Procedure Summary Procedure Name Responsible Anesthesiologist Anesthesia Start Time Anesthesia Stop Time Acute Pain Medicine Service (consult) Events No events on file. Meds * Agents No agents on file. * Blood No blood administrations on file. Lines, Drains, and Airways No LDAs on file. documented in this encounter Social History Tobacco [...] a senior living (including now)? No 06/04/2023 Housing Stability Vital [...] time in the past [address] [facility], were you homeless or living in a senior living (including now)? No 01/24/2024 DH IPV Inpatient [...] EST TH Visit (TeleHealth) Radiation Oncology at [address] [phone] Ping Moore PA [facility] DR [place] [address] 03/26/2024 9:30 AM EST Office Visit Hematology/Oncology at [address] [phone] [address] HEMATOLOGY AND ONCOLOGY [place], [place] [address] 03/26/2024 9:30 AM EST Infusion Hematology Oncology at [address] [phone] 04/09/2024 9:30 AM EST Office Visit Hematology/Oncology at [address] [phone] Cl Hess MD [facility] [place] [address] [address] HEMATOLOGY AND ONCOLOGY [place], [place] [phone] 04/09/2024 10:00 AM EST Infusion Hematology Oncology at [address] [phone] 04/23/2024 9:30 AM EST Office Visit Hematology/Oncology at [address] [phone] Cl Hess MD [facility] [place] [address] Yessi Renee APRN [address] [place] [address] DR HEMATOLOGY AND ONCOLOGY [place], [place] [address] 04/23/2024 10:00 AM EST Infusion Hematology Oncology at [address] [phone] 05/18/2024 4:30 PM EDT TH Visit (TeleHealth) [place] [address] Malachi Rothman MD [facility] [place] [address] documented as of this encounter Visit Diagnoses Not on filedocumented in this encounter Care Teams Sap Bi Developer Relationship Specialty Start Date End Date Tristen Hunter MD [address] [place] [address] [place] [address] PCP - General Family Medicine 07/04/23 documented as of this encounter
--- OUTSIDE RECORDS SUMMARY | 2024-03-12 10:51 | XMS_ITS | Encounter Summary ---
Author Organization [facility] [place] [address] Care Team Providers Care Warehouse Receiving Clerk Name Role Phone Tristen Hunter MD Primary Care Provider [phone] Encounter Details Date Type Department Care Team (Latest Contact Info) Description 11/29/2023 11:00 AM EDT Clinical Support Hematology/Oncology at [address] [phone] [facility] DR [place] [address] Malignant neoplasm of prostate Social History Tobacco Use Types Packs/Day Years Used Date Smoking Tobacco: Former Cigarettes 4 1 3 - 1992 Smokeless Tobacco: Never Alcohol Use Standard Drinks/Week Comments Yes 7 (1 standard drink = 0.6 oz pur e alcohol) [facility] Utilities Answer Date Recorded In the past 12 months has [email or web address] electric, gas, oil, or water company threatened [...] in a residential (including now)? No 06/04/2023 DH IPV Inpatient [...] Progress Notes * Lupe Velasquez, RD - 11/29/2023 11:00 AM EDT Nutrition Note Unable to see patient today after his office visit with Yessi Renee NP. Patient completed SBRT on 11/26. He completed 8 cycles of mFolfirinox 07/11-10/18/23. He takes 3 (sometimes 4) Creon 24 per meal and 2 per snack. Per provider note today: he is feeling well however the rise in his LFTs is concerning. Bilirubin is also mildly elevated. He is asymptomatic and has had no fevers, however this is concerning for stent occlusion. I have reached out to Dr. Lopez and his team will be reaching out to schedule him anne ERCP for suspected impending stent obstruction. BG is fairly well controlled. A1C is 7.2% down from 10%. He takes both long and short acting insulin. Long acting insulin was recently decreased from 36 to 32 units to help with morning hypoglycemia. Weight remains stable, up a few pounds today. He re-gained 28# in 2.5 months (07/04-09/20/23) during chemotherapy following 44# loss in one year (07/31/22-07/05/23). Wt Readings from Last 10 Encounters: 11/29/23 92.2 kg (203 lb 3.2 oz) 11/27/23 89.3 kg (196 lb 12.8 oz) 11/25/23 90.1 kg (198 lb 9.6 oz) 11/21/23 90.3 kg (199 lb) 11/18/23 90.7 kg (200 lb) 11/15/23 90.3 kg (199 lb) 11/01/23 91.9 kg (202 lb 9.6 oz) 10/30/23 92.7 kg (204 lb 4.8 oz) 10/25/23 90.3 kg (199 lb) 10/18/23 91.8 kg (202 lb 6.4 oz) 07/05/23 79.8 kg (176 lb) BMI 28.35 Weight up 4# in past week 11/20-11/28 28# re-gain in 2.5 months 07/04-09/19 44# (23.2% body weight) loss over past year per chart 07/31/22-07/05/23 Lost 85# total per patient Patient has appt with Dr. Balbuena on 12/16 to discuss possible surgery. Will give him a call on 12/17 documented in this encounter Plan of Treatment Upcoming Encounters Date Type Department Care Team (Late st Contact Info) Description 03/24/2024 9:00 AM EST TH Visit (TeleHealth) Radiation Oncology at [address] [phone] Ping Moore PA [facility] DR [place] [address] 03/26/2024 9:30 AM EST Office Visit Hematology/Oncology at [address] [phone] Yessi Renee, [address] HEMATOLOGY AND ONCOLOGY [place], [place] [address] 03/26/2024 9:30 AM EST Infusion Hematology Oncology at [address] [phone] 04/09/2024 9:30 AM EST Office Visit Hematology/Oncology at [address] [phone] Cl Hess MD [facility] [place] [address] [address] HEMATOLOGY AND ONCOLOGY [place], [place] [phone] 04/09/2024 10:00 AM EST Infusion Hematology Oncology at [address] [phone] 04/23/2024 9:30 AM EST Office Visit Hematology/Oncology at [address] [phone] Cl Hess MD [facility] [place] [address] Yessi Renee [address] HEMATOLOGY AND ONCOLOGY [place], [place] [id number] 04/23/2024 10:00 AM EST Infusion Hematology Oncology at [address] [phone] 05/18/2024 4:30 PM EDT TH Visit (TeleHealth) [place] [address] Malachi Rothman MD [facility] [place] [address] documented as of this encounter Visit Diagnoses Diagnosis Malignant neoplasm of prostate documented in this encounter Care Teams Warehouse Receiving Clerk Relationship Specialty Start Date End Date Tristen Hunter MD [address] [place] [address] [place] [address] PCP - General Family Medicine 07/04/23 documented as of this encounter
--- OUTSIDE RECORDS SUMMARY | 2024-03-12 10:51 | XMS_ITS | Encounter Summary ---
[place] [address] Care Team Providers Care Blasting Contract Man Name Role Phone Tristen Hunter MD Primary Care Provider [phone] Encounter Details Date Type Department Care Team (Late st Contact Info) Description 12/06/2023 Orders Only Hematology Oncology at [address] [phone] HEMATOLOGY [place] [address] Social History Tobacco Use Types Packs/Day Years Used Date Smoking Tobacco: Former Cigarettes 4 30 1 3 - 1992 Smokeless Tobacco: Never Alcohol Use Standard Drinks/Week Comments Yes 7 (1 standard drink = 0.6 oz pur e alcohol) [facility] Utilities Answer Date Recorded In the past 12 months has [employer] electric, gas, oil, or water company threatened [...] in a chcf (including now)? No 06/04/2023 DH IPV Inpatient [...] EST TH Visit (TeleHealth) Radiation Oncology at [address] [phone] Ping Moore PA [facility] HEMATOLOGY [place] [address] 03/26/2024 9:30 AM EST Office Visit Hematology/Oncology at [address] [phone] HEMATOLOGY [place] [address] 03/26/2024 9:30 AM EST Infusion Hematology Oncology at [address] [phone] 04/09/2024 9:30 AM EST Office Visit Hematology/Oncology at [address] [phone] Cl Hess MD [facility] [place] [address] Yess[address] Renee [address] HEMATOLOGY AND ONCOLOGY [place], [place] [phone] 04/09/2024 10:00 AM EST Infusion Hematology Oncology at [address] [phone] 04/23/2024 9:30 AM EST Office Visit Hematology/Oncology at [address] [phone] Cl Hess MD [facility] [place] [address] [address] HEMATOLOGY [place] [address] 04/23/2024 10:00 AM EST Infusion Hematology Oncology at [address] [phone] 05/18/2024 4:30 PM EDT TH Visit (TeleHealth) [place] [address] Malachi Rothman MD [facility] [place] [address] documented as of this encounter Visit Diagnoses Not on filedocumented in this encounter Care Teams Blasting Contract Man Relationship Specialty Start Date End Date Tristen Hunter MD [address] [place] [address] [place] [address] PCP - General Family Medicine 07/04/23 documented as of this encounter
--- OUTSIDE RECORDS SUMMARY | 2024-03-12 10:51 | XMS_ITS | Encounter Summary ---
Author Organization [facility] Address [facility] [place] [address] Care Team Providers Care Club Manager Name Role Phone Tristen Hunter MD Primary Care Provider [phone] Encounter Details Date Type Department Care Team (Latest Contact Info) Description 12/31/2023 9:00 AM EDT TH Visit (TeleHealth) Radiation Oncology at [address] [phone] Ping Moore PA [facility] DR HEMAT[place] [address] Malignant neoplasm of prostate (Primary Dx); S/P radiotherapy Social History Tobacco Use Types Packs/Day Years Used Date Smoking Tobacco: Former Cigarettes 4 30 1 1992 Smokeless Tobacco: Never Alcohol Use Standard Drinks/Week Comments Yes 7 (1 standard drink = 0.6 oz pur e alcohol) [facility] Utilities Answer Date Recorded In the past 12 months has [employer], gas, oil, or water [employer] threatened to shut off services in your [...] in a assisted (including now)? No 06/04/2023 DH IPV Inpatient [...] Progress Notes * Ping Moore PA - 12/31/2023 9:00 AM EDT [facility] [place] [address] TELEHEALTH FOLLOW-UP: Patient: Wero Sadler : 1950 [...] 43 Did not receive 03/[address] [place]. Peters in 07/2022, no further Lupron needed Current treatment: Surveillance Interval Symptoms Since Last Visit on 09/03/23: General: Doing well. 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 Weight/Appetite/Diet: Denies recent appetite or weight changes. Respiratory: Denies SOB or cough. Cardiovascular: H/o CAD s/p CABG x 3, follows with Vascular Surgery. Denies chest pain, palpitations, calf pain/swelling, or other peripheral edema. GI: Has pancreatic cancer, s/p mFOLFIRINOX with Dr. Hess. Completed MRI-guided SBRT to his pancreas (50 Gy in 5 fractions) with Dr. Rothman on 11/27/23. Scheduled for [facility] on 01/23/24. Denies N/V/D/C, melena, or hematochezia. : S/p PVP 02/02/21. Continues to have nocturia x 1. Occasional leakage has resolved. Takes Flomax 0.4 mg QHS. Denies hematuria, dysuria, difficulty initiating urination, difficulty emptying bladder,increased urgency or frequency. Endocrine: Did not have [...] now almost completely blind in right eye, follows with [facility] Ophthalmology. Reports some balance issues 2/2 blindness and diabetic neuropathy. Denies headaches or seizures. Mood: Denies mood swings or feeling depressed. Tobacco Use: Smoked 4 PPD x > 30 years, quit on 03/04/92. Alcohol Use: Drinks 1, 4 oz glass of red wine occasionally, but not everyday. Social Support: Partner. Allergies: Allergies Allergen Reactions [...] procedure at [facility] in [place]: shaking Has tolerated MRI and CT contrast. Pazopanib Other (See Comments) UGT1A1 Poor Metabolizer. See Clinical Pharmacist Note from 07/04/23 for information. Sacituzumab Govitecan-Hziy Other (See Comments) UGT1A1 Poor Metabolizer. See Clinical Pharmacist Note from 07/04/23 for dosing recommendations. Current Medications: Current Outpatient Medications on File Prior to Visit Medication Sig Dispense Refill gqjjte-phspgidd-izisxly DR (Creon 24) 24,000-76,000 -120,[address] capsule Take 3 per meal three times daily and 2 per snack three times daily (15 capsules/day) 450 capsule 11 tamsulosin (Flomax) 0.4 mg capsule Take 1 capsule by mouth nightly. 30 capsule 11 Insulin Fiasp FlexTouch U-100 100 unit/mL (3 mL) Insulin Pen Inject 3 mLs subcutaneously 4 times daily. Insulin Tresiba FlexTouch U-100 100 unit/mL (3 mL) Insulin Pen 30 units in the AM Takes half a dose on radiation tx days Took 15 units 11/15/23 Took 15 units 11/21/23 chlorthalidone (Hygroton) 25 mg tablet Take 25 mg by mouth daily. omeprazole (PriLOSEC) [address] capsule Take 20 mg by mouth daily. omega 2-wtm-yne-fish oil 250-350-1,000 mg Capsule Take 1,000 mg [...] taking differently: Take 25 mg by mouth once. Carvedilol (holdfor SBP <110, Hr <60)) lisinopriL (Zestril) 40 mg Tablet Take 1 tablet by mouth daily. Lisinopril (hold for SBP <130) timoloL (Timoptic) 0.5 % Drops daily. folic acid (Folvite) 1 mg Tablet Take [...] after chemotherapy (Patient not taking: Reported on 11/01/2023) 20 tablet 5 prochlorperazine (Compazine) 10 mg tablet Take 1 tablet by mouth every 6 hours as needed for Nausea. (Patient not taking: Reported on 07/26/2023) 20 tablet 5 erythromycin (Romycin) 5 mg/gram (0.5 %) Ointment Place 1 Tube into the left eye once a week. No current facility-administered medications on file prior [...] Labs Reviewed This Visit: Date PSA Testosterone (178-162) *exception Notes 03/2020 15.4 05/2020 18.5 10/05/20 21.6 01/20/21 16.5 01/31/21 Started Lupron 06/21/21 3.7 16 09/06/21 Completed RT 11/14/21 0.05 8 06/29/22 0.05 50 06/25/23 0.09 2.12 *(Testosterone Reference Range: 1.93-7.4) 12/06/23 0.18 Assessment & Plan: #Prostate cancer: - Completed 13 months of ADT with coverage through 03/2022. - Labs reviewed from 12/06/23: PSA 0.18, doubled since 06/25/23, but still low. Since pre-ADT Testosterone is unknown, it is possible that Testosterone is still recovering, which could contribute to anincrease in PSA. Patient denies participating in any activities that may falsely elevate PSA withinone week of having his blood drawn. Will continue to monitor. - No acute/concerning reported symptoms. - Per NCCN guidelines, PSA and H&P due every 6 months x 5 years s/p RT completion, then annually (PSA may be checked more frequently depending on risk level or other patient-specific factors). MELIA if suspicious for recurrence. - Next PSA, Testosterone, and H&P due in 3 months. #Effects of EBRT: - Completed definitive RT [...] visit (phone; patient is almost completely blind): 3 months Labs ([facility], [facility]): PSA, Testosterone Wero Sadler had the opportunity to ask questions, which were answered to the best of my knowledge. Wero Sadler agreed to contact Radiation Oncology in between visits if he has any questions/concerns or new symptoms in regards to his radiation therapy/prostate cancer. Ping V. Moore, PA-C Radiation Oncology documented in this encounter Plan of Treatment Upcoming Encounters Date Type Department Care Team (Late st Contact Info) Description 03/24/2024 9:00 AM EST TH Visit (TeleHealth) Radiation Oncology at [address] [phone] Ping Moore PA [facility] DR H[place]ATOLOGY [place] [address] 03/26/2024 9:30 AM EST Office Visit Hematology/Oncology at [address] [phone] HEMATOLOGY AND ONCOLOGY [place], [place] [address] 03/26/2024 9:30 AM EST Infusion Hematology Oncology at [address] [phone] 04/09/2024 9:30 AM EST Office Visit Hematology/Oncology at [address] [phone] Cl Hess MD [facility] [place] [address] HEMATOLOGY AND ONCOLOGY [place], [place] [address] 04/09/2024 10:00 AM EST Infusion Hematology Oncology at [address] [phone] 04/23/2024 9:30 AM EST Office Visit Hematology/Oncology at [address] [phone] Cl Hess MD [facility] [place] [address] Yessi Renee APRN [address] [place] [address] DR HEMATOLOGY AND ONCOLOGY [place], [place] [id number] 04/23/2024 10:00 AM EST Infusion Hematology Oncology at [address] [phone] 05/18/2024 4:30 PM EDT TH Visit (TeleHealth) [place] [address] Malachi Rothman MD [facility] [place] [address] Scheduled Orders Name Type Priority Associated Diagnoses Orde r Schedule PSA (Ultrasensitive) Lab Routine Malignant neoplasm of prostate Expected: 03/07/2024 (Approximate), Expires: 09/06/2024 Testosterone, total Lab Routine Malignant neoplasm of prostate Expected: 03/07/2024 (Approximate), Expires: 09/06/2024 documented as of this encounter Visit Diagnoses Diagnosis Malignant neoplasm of prostate- Primary S/P radiotherapy Convalescence following radiotherapy documented in this encounter Care Teams Club Manager Relationship Specialty Start Date End Date Tristen Hunter MD [address] [place] [address] [place] [address] PCP - General Family Medicine 07/04/23 documented as of this encounter
--- OUTSIDE RECORDS SUMMARY | 2024-03-12 10:51 | XMS_ITS | Encounter Summary ---
[place] [address] Care Team Providers Care Event Marketing Specialist Name Role Phone Tristen Hunter MD Primary Care Provider [phone] Encounter Details Date Type Department Care Team (Late st Contact Info) Description 12/05/2023 Orders Only Hematology/Oncology at [address] [phone] Yessi Renee, [address] [place] [address] Malignant neoplasm of prostate Social History Tobacco Use Types Packs/Day Years Used Date Smoking Tobacco: Former Cigarettes 4 30 1 3 - 1992 Smokeless Tobacco: Never Alcohol Use Standard Drinks/Week Comments Yes 7 (1 standard drink = 0.6 oz pur e alcohol) [facility] Utilities Answer Date Recorded In the past 12 months has [employer] electric, gas, oil, or water company threatened [...] EST TH Visit (TeleHealth) Radiation Oncology at [address] [phone] Ping Moore PA [facility] HEMATOLOGY [place] [address] 03/26/2024 9:30 AM EST Office Visit Hematology/Oncology at [address] [phone] [address] HEMATOLOGY AND ONCOLOGY [place], [place] [address] [phone] 03/26/2024 9:30 AM EST Infusion Hematology Oncology at [address] [phone] 04/09/2024 9:30 AM EST Office Visit Hematology/Oncology at [address] [phone] Cl Hess MD [facility] [place] [address] Yess[address] Renee [address] HEMATOLOGY AND ONCOLOGY [place], [place] [id number] 04/09/2024 10:00 AM EST Infusion Hematology Oncology at [address] [phone] 04/23/2024 9:30 AM EST Office Visit Hematology/Oncology at [address] [phone] Cl Hess MD [facility] [place] [address] Yessi Renee [address] HEMATOLOGY AND ONCOLOGY [place], [place] [address] 04/23/2024 10:00 AM EST Infusion Hematology Oncology at [address] [phone] 05/18/2024 4:30 PM EDT TH Visit (TeleHealth) [place] [address] Malachi Rothman MD [facility] [place] [address] documented as of this encounter Visit Diagnoses Diagnosis Malignant neoplasm of prostate documented in this encounter Care Teams Event Marketing Specialist Relationship Specialty Start Date End Date Tristen Hunter MD [address] [place] [address] [place] [address] PCP - General Family Medicine 07/04/23 documented as of this encounter
--- OUTSIDE RECORDS SUMMARY | 2024-03-12 10:51 | XMS_ITS | Encounter Summary ---
Author Organization [facility] [place] [address] Care Team Providers Care Assistant Professor Of Dietetics Name Role Phone Tristen Hunter MD Primary Care Provider [phone] Encounter Details Date Type Department Care Team (Late st Contact Info) Description 11/29/2023 Orders Only [place] [phone] Pako Lopez MD [facility] [place] [address] Biliary obstruction Social History Tobacco Use Types Packs/Day Years Used Date Smoking Tobacco: Former Cigarettes 4 30 1 963 - 1992 Smokeless Tobacco: Never Alcohol Use Standard Drinks/Week Comments Yes 7 (1 standard drink = 0.6 oz pur e alcohol) [facility] Utilities Answer Date Recorded In the past 12 months has [employer] electric, gas, oil, or water company threatened [...] in a fpc (including now)? No 06/04/2023 DH IPV Inpatient [...] Contact Info) Description 03/24/2024 9:00 AM EST Visit (TeleHealth) Radiation Oncology at [address] [phone] Ping Moore PA [facility] [place] [address] 03/26/2024 9:30 AM EST Office Visit Hematology/Oncology at [address] [phone] [address] HEMATOLOGY AND ONCOLOGY [place], [place] [address] [phone] 03/26/2024 9:30 AM EST Infusion Hematology Oncology at [address] [phone] 04/09/2024 9:30 AM EST Office Visit Hematology/Oncology at [address] [phone] Cl Hess MD [facility] [place] [address] Yessi Renee [address] HEMATOLOGY AND ONCOLOGY [place], [place] [phone] 04/09/2024 10:00 AM EST Infusion Hematology Oncology at [address] [phone] 04/23/2024 9:30 AM EST Office Visit Hematology/Oncology at [address] [phone] Cl Hess MD [facility] [address] [address] [place] [address] 04/23/2024 10:00 AM EST Infusion Hematology Oncology at [address] [phone] 05/18/2024 4:30 PM EDT TH Visit (TeleHealth) [place] [address] Malachi Rothman MD [facility] [place] [address] documented as of this encounter Visit Diagnoses Diagnosis Biliary obstruction Obstruction of bile duct documented in this encounter Care Teams Assistant Professor Of Dietetics Relationship Specialty Start Date End Date Tristen Hunter MD [address] [place] [address] [place] [address] PCP - General Family Medicine 07/04/23 documented as of this encounter
--- OUTSIDE RECORDS SUMMARY | 2024-03-12 10:51 | XMS_ITS | Encounter Summary ---
Author Organization [facility] [place] [address] Care Team Providers Care Denial Resolution Specialist Name Role Phone Tristen Hunter MD Primary Care Provider [phone] Encounter Details Date Type Department Care Team (Latest Contact Info) Description 01/14/2024 4:30 PM EST TH Visit (TeleHealth) [place] [address] [facility] [place] [address] Malignant neoplasm of prostate Social History Tobacco Use Types Packs/Day Years Used Date Smoking Tobacco: Former Cigarettes 4 30 1 3 - 1992 Smokeless Tobacco: Never Alcohol Use Standard Drinks/Week Comments Yes 7 (1 standard drink = 0.6 oz pur e alcohol) [facility] Utilities Answer Date Recorded In the past [...] as of this encounter Progress Notes * Malachi Rothman MD - 01/14/2024 4:30 PM EST Radiation Oncology Follow up Note: Mr.Philip Adwao Sadler is a very pleasant, 73-year-old, male with multiple previous cancers and 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 The patient has borderline resectable stage II (T3 N0 M0). He has no evidence of metastases by CT scan or laparoscopy. He is S/P biliary stent placement. 07/12/23 - Began therapy with mFolfirinox and so far completed 8 cycles. PGX showed no variant in DPYD. 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 30% reduction in irinotecan dose was recommended. Oxaliplatin was dose reduced by 20% due to pre- existing neuropathy. He had an excellent biochemical response with decreasing CA [address] scan findings. Patient Active Problem List Diagnosis Malignant neoplasm of head of pancreas [...] Diabetes mellitus Hypercholesterolemia Hypertension -Labile blood pressurses History of Present Illness: Mr.Philip Adwoa Sadler is a very pleasant 73-year-old male patient with newly diagnosed pancreatic cancer. The patient has history of high risk prostate cancer treated by definitive radiation therapy and total androgen deprivation in 2021 with no evidence of relapse. He also has a history of colon cancer treated by surgery and adjuvant chemotherapy in 2008 with no evidence of relapse. He has been followed for a cystic lesion in the head of the pancreas since [address] a CT. The lesion was highly concerning for IPMN. Repeat imaging in April 2023 showed a 3.8 cm cystic mass in the head of the pancreas, increased in size with biliary and pancreatic ductal dilatation. The following workup was done: MRI abd 04/19/23 - Impression: Biliary ductal [...] periduodenal or perilesional adenopathy was appreciated Impression: [id number] pancreas head mass lesion with biliary and pancreatic ductal dilation Path - Head of pancreas mass, biopsy: Scant epithelium with mild atypia, suspicious for adenocarcinoma ERCP with sphincterotomy and metal stent placement CT chest 05/22/23 - IMPRESSION: No clear [...] pathologic uptake to suggest active distant metastasis He was presented at the GI tumor board: [facility] 06/18/23. Imaging:CT from 05/2023 reviewed. Will request second read. There is a 3.5 x 2.8 softtissue lesion with an adjacent cystic lesion. The [...] metastatic disease/disease progression on interim staging evaluation. Diagnostic laparoscopy 07/05/23 - Findings: There was no evidence of metastatic disease. CA 19-9 was elevated at 684 as of May 2023. Based on the above findings, he was started on neoadjuvant chemotherapy as per the tumor board recommendation: 07/12/23 - Began therapy with mFolfirinox and so far completed 8 cycles. PGX showed no variant in DPYD. 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 30% reduction in irinotecan dose was recommended. Oxaliplatin was dose reduced by 20% due to pre- existing neuropathy. He had an excellent biochemical response with decreasing CA 19 9: 10/03/23 99 09/19/23 151 08/30/23 242 08/08/23 317 06/25/23 390 05/22/[address] scan: CT c/a/p 09/02/23 Chest - Impression: 1. [...] and food filled stomach 3. Constipation CT 10/25/2023 Stable pancreatic head cyst along with moderate dilatation of the main pancreatic duct and diffuse pancreatic gland atrophy unchanged. Stable location of distal common bile duct stent with associated pneumobilia. Large amount of stools. Diffuse atherosclerotic changes. No evidence of metastatic disease in the chest 11/27/2023: Completed SBRT to the head of the pancreas receiving 50 Howard in 5 fractions. He tolerated treatment with no major side effects. 01/14/2024: Continues to do well with no nausea, vomiting, diarrhea or abdominal cramps. He had repeat CA 19-9 that fell to 41. Repeat CT scan shows good response to neoadjuvant therapy. The patient has been evaluated by Dr. Balbuena and is scheduled for surgery on January 23, 2024. 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 can not read. can see shadows. No vision in left eye since child saavedra accident. Cancer prostate, colorectal Claudication Colon adenocarcinoma 2008 recieved chemo in [place] Coronary artery disease Coronary artery dissection CPAP [...] N/A 07/05/2023 FLUOROSCOPY (WRVU 0.3) performed by Charu Balbuena MD at [facility] OSC PRO ARTHROPLASTY ACETABULAR/PROX FEM PROSTC AGRFT/ALGRFT Left 10/10/2020 TOTAL HIP ARTHROPLASTY - POSTERIOR (WRVU 20.72) performed by Ismael Wu MD at [facility] MAIN OR PRO ARTHROPLASTY ACETABULAR/PROX FEM PROSTC AGRFT/ALGRFT Right 11/17/2021 TOTAL HIP ARTHROPLASTY - POSTERIOR (WRVU 20.72) performed by Ismael Wu MD at [facility] MAIN OR PRO ENDOSCOPIC US EXAM, ESOPH N/A 07/02/2023 UPPER EUS- ENDOSCOPIC ULTRASOUND (WRVU 3.47) performed by Pako Lopez MD at [facility] ENDOSCOPY PRO ERCP, W/REMOVAL STONE, TARYN/PANCR DUCTS 07/02/2023 ERCP W/REMOVAL CALCULI/DEBRIS FROM BILARY/PANCREATIC DUCT(S) (WRVU 6.63) performed by Pako Lopez MD at [facility] ENDOSCOPY PRO ERCP,DIAGNOSTIC N/A 07/02/2023 ERCP (WRVU 5.85) performed by Pako Lopez MD at [facility] ENDOSCOPY PRO EXPLORATION NOT FOLLOWED BY SURG NECK ARTERY Right 07/14/2021 @EXPLORATION NOT FOLLOWED BY SURGICAL REPAIR, ARTERY; NECK (CAROTID OR SUBCLAVIAN) (WRVU 9.19) performed by Basim Barr MD at [facility] MAIN OR PRO INSERT TUNNELED CV CATH W SUBQ PORT, AGE 5 YRS OR OLDER N/A 07/05/2023 MARIO\AMELIA.CATHETER,TUNNELED, WITH SQ PORT OR PUMP OVER 5YR (WRVU 5.79) performed by Maggi Balbuena MD at [facility] OSC PRO LAP, DIAGNOSTIC ABDOMEN N/A 07/05/2023 LAPAROSCOPY, DIAGNOSTIC, ABDOMEN (WRVU 5.14) performed by Charu Balbuena MD at [facility] OSC PRO LASER VAPORIZATION SURGERY PROSTATE, COMPLETE Midline 02/02/2021 CYSTO, LASER TURP (WRVU 12.15) performed by Cayetano Engle MD at [facility] MAIN OR PRO PLACE TRANSCATHETER STENT, CCA W EMBOLIC PROECT Right 07/14/2021 @TRANSCATH INTRAVASCULAR STENT,CAROTID,PERC,W\EMBOLIC PROT. (WRVU 18) performed by Basim Barr MD at [facility] MAIN OR Medications 01/08/24 1306 Medication Sig Taking? zfetvn-uzxmrnff-pxjjenh DR (Creon 24) 24,000-76,000 -120,[address] capsule Take 3 per meal three times daily and 2 per snack three times daily (15 capsules/day) tamsulosin (Flomax) 0.4 mg capsule Take 1 capsule by mouth nightly. ondansetron (Zofran) 8 mg tablet Take 1 tablet by mouth every 8 hours as needed for Nausea. Do not use for 72 hours after chemotherapy Patient not taking: Reported on 11/01/2023 prochlorperazine (Compazine) 10 mg tablet Take 1 tablet by mouth every 6 hours as needed for Nausea. Patient not taking: Reported on 07/26/2023 Insulin Fiasp FlexTouch U-100 100 unit/mL (3 [...] Take 20 mg by mouth daily. omega 9-mvq-qbe-fish oil 250-350-1,000 mg Capsule Take 1,000 mg by mouth. amLODIPine (Norvasc) 10 mg Tablet Take 0.5 tablets by mouth daily. Amlodipine (Hold if SBP<120) Patient taking differently: Take 10 mg by mouth daily. Amlodipine (Hold if SBP<120) carvediloL (Coreg) 25 mg Tablet Take 1 tablet by mouth 2 times daily (with meals). Carvedilol (holdfor SBP <110, Hr <60) Patient taking differently: Take 25 mg by mouth once. Carvedilol (hold for SBP <110, Hr <60) lisinopriL (Zestril) 40 mg Tablet Take 1 tablet by mouth daily. Lisinopril (hold for SBP <130) timoloL (Timoptic) 0.5 % Drops daily. erythromycin (Romycin) 5 mg/gram (0.5 %) Ointment Place 1 Tube into the left eye once a week. folic acid (Folvite) 1 mg Tablet Take 1 tablet by mouth daily. isosorbide mononitrate CR (Imdur) 30 mg Tablet Sustained Release 24 hr Take 1 tablet by mouth nightly. atorvastatin (Lipitor) 80 mg Tablet Take 1 tablet by mouth every evening. aspirin EC 81 mg Tablet, Delayed Release (E.C.) Take 81 mg by mouth daily. Allergies Allergen Reactions Belinostat Other (See Comments) [...] a dye used during vascular procedure at [facility] in [place]: shaking Has tolerated MRI and CT contrast. Pazopanib Other (See Comments) UGT1A1 Poor Metabolizer. See Clinical Pharmacist Note from 07/04/23 for information. Sacituzumab Govitecan-Hziy Other (See Comments) UGT1A1 Poor Metabolizer. See Clinical Pharmacist Note from 07/04/23 for dosing recommendations. 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 Tobacco Use Smoking status: Former Current packs/day: 0.00 Average packs/day: 4.0 packs/day for 30.0 years (120.0 ttl pk-yrs) Types: Cigarettes Start date: 1962 Quit date: 1992 Years since quittin.8 Smokeless tobacco: Never Vaping Use Vaping status: Never Used Substance and Sexual Activity Alcohol use: Yes Alcohol/week: 7.0 standard drinks of alcohol Types: 7 Cans of beer per week Drug use: Not Currently Sexual activity: Not on file Other Topics Concern Not on file Social History Narrative Not on file Social Determinants of Health Financial Resource Strain: Low Risk (06/04/2023) Overall Financial Resource Strain (CARDIA) Difficulty of Paying Living Expenses: Not hard at all Food Insecurity: No Food Insecurity (06/04/2023) Hunger Vital Sign Worried About Running Out of Food in the Last Year: Never true Ran Out of Food in the Last Year: Never true Transportation Needs: Unmet Transportation Needs (06/04/2023) PRAPARE - Transportation Lack of Transportation (Medical): Yes Lack of Transportation (Non-Medical): No Physical Activity: Not on file Intimate Partner Violence: Not At Risk (07/05/2023) DH IPV Inpatient Questions Prevent Contact with Others: no Feels Threatened by Someone: no Feels Unsafe at Home: no Physical Signs of Abuse Present: no Housing Stability: Low Risk (06/04/2023) Housing Stability Vital Sign Unable to Pay for Housing in the Last Year: No Number of Places Lived in the Last Year: 1 Unstable Housing in the Last Year: No Family History Problem Relation Age of Onset Liver Cancer Mother Diabetes Father Brain Cancer Sister Stomach Cancer Brother Melanoma Brother Uterine Cancer Maternal Grandmother Lung Cancer Maternal Grandfather Lung Cancer Maternal Aunt 36 heavy smoker Physical Examination: Temp: -- Heart Rate: -- Resp: -- BP: ()/() SpO2: -- Heart Rate from SpO2: -- Component Latest Ref Rng 06/25/2023 12/17/2023 CA 19-9 <=35.0 units/mL 390.0 (H) 41.6 (H) Legend: (H) High 12/17/2023 CT: 1. 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 The patient has borderline resectable stage II (T3 N0 M0). He has no evidence of metastases by CT scan or laparoscopy. He is S/P biliary stent placement. 07/12/23 - Began therapy with mFolfirinox and so far completed 8 cycles. PGX showed no variant in DPYD. 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 30% reduction in irinotecan dose was recommended. Oxaliplatin was dose reduced by 20% due to pre- existing neuropathy. He had an excellent biochemical response with decreasing CA [address] scan findings. He completed SBRT with good biochemical response and improved CT scan. Plan: Scheduled for Whipple procedure on January 23, 2024. Follow-up in 4 months 10 minutes telephone call documented in this encounter Plan of Treatment Upcoming Encounters Date Type Department Care Team (Late st Contact Info) Description 03/24/2024 9:00 AM EST TH Visit (TeleHealth) Radiation Oncology at [address] [phone] [facility] [address] [place] [address] 03/26/2024 9:30 AM EST Office Visit Hematology/Oncology at [address] [phone] HEMATOLOGY AND ONCOLOGY [place], [place] [address] 03/26/2024 9:30 AM EST Infusion Hematology Oncology at [address] [phone] 04/09/2024 9:30 AM EST Office Visit Hematology/Oncology at [address] [phone] [facility] [place] [address] HEMATOLOGY AND ONCOLOGY [place], [place] [phone] 04/09/2024 10:00 AM EST Infusion Hematology Oncology at [address] [phone] 04/23/2024 9:30 AM EST Office Visit Hematology/Oncology at [address] [phone] [facility] [place] [address] Y[address]e [address] HEMATOLOGY AND ONCOLOGY [place], [place] [id number] 04/23/2024 10:00 AM EST Infusion Hematology Oncology at [address] [phone] 05/18/2024 4:30 PM EDT TH Visit (TeleHealth) [place] [address] [facility] [place] [address] documented as of this encounter Visit Diagnoses Diagnosis Malignant neoplasm of prostate documented in this encounter Care Teams Denial Resolution Specialist Relationship Specialty Start Date End Date Tristen Hunter MD [address] [place] [address] [place] [address] PCP - General Family Medicine 07/04/23 documented as of this encounter
--- OUTSIDE RECORDS SUMMARY | 2024-03-12 10:51 | XMS_ITS | Encounter Summary ---
[place] [address] Care Team Providers Care Ocean Import Representative Name Role Phone Tristen Hunter MD Primary Care Provider [phone] Encounter Details Date Type Department Care Team (Late st Contact Info) Description 12/06/2023 Telephone Hematology/Oncology at [address] [phone] Kristi Alvarado, RN Social History Tobacco Use Types Packs/Day Years Used Date Smoking Tobacco: Former Cigarettes 4 30 1 963 - 1992 Smokeless Tobacco: Never Alcohol Use Standard Drinks/Week Comments Yes 7 (1 standard drink = 0.6 oz pur e alcohol) [facility] Utilities Answer Date Recorded In the past 12 months has [employer], gas, oil, or water company threatened to [...] encounter Miscellaneous Notes * Telephone Encounter - Kristi Alvarado RN - 12/06/2023 2:02 PM EDT LFT recheck today AST 20 down from 424 ALT 102 down from 295 Alk Phos 282 down from 372 T bili 0.9 down from 1.3 Reviewed with providers. We can cancel ERCP. Will recheck at on 12/16 when he is there for a CT and apt with Dr. Balbuena. Called to let Wero know the above, he is in agreement and can verbalize the plan back. documented in this encounter Plan of Treatment Upcoming Encounters Date Type Department Care Team (Late st Contact Info) Description 03/24/2024 9:00 AM EST TH Visit (TeleHealth) Radiation Oncology at [address] [phone] Ping Moore PA [facility] HEMATOLOGY [place] [address] 03/26/2024 9:30 AM EST Office Visit Hematology/Oncology at [address] [phone] HEMATOLOGY AND ONCOLOGY [place], [place] [phone] 03/26/2024 9:30 AM EST Infusion Hematology Oncology at [address] [phone] 04/09/2024 9:30 AM EST Office Visit Hematology/Oncology at [address] [phone] Cl Hess MD [facility] [place] [address] [address] HEMATOLOGY AND ONCOLOGY [place], [place] [phone] 04/09/2024 10:00 AM EST Infusion Hematology Oncology at [address] [phone] 04/23/2024 9:30 AM EST Office Visit Hematology/Oncology at [address] [phone] Cl Hess MD [facility] [place] [address] LaRozYessi dale APRN [address] [place] [address] DR [place] [address] 04/23/2024 10:00 AM EST Infusion Hematology Oncology at [address] [phone] 05/18/2024 4:30 PM EDT TH Visit (TeleHealth) [place] [address] Malachi Rothman MD [facility] [place] [address] documented as of this encounter Visit Diagnoses Diagnosis Malignant neoplasm of head of pancreas documented in this encounter Care Teams Ocean Import Representative Relationship Specialty Start Date End Date Tristen Hunter MD [address] [place] [address] [place] [address] PCP - General Family Medicine 07/04/23 documented as of this encounter
--- OUTSIDE RECORDS SUMMARY | 2024-03-12 10:51 | XMS_ITS | Encounter Summary ---
[place] [address] Care Team Providers Care Hvac Project Engineer Name Role Phone Tristen Hunter MD Primary Care Provider [phone] Reason for Visit * Auth/Cert (Routine) Specialty Diagnoses / Procedures Referred By Contac t Referred To Contact Diagnoses PANCREAS CANCER Procedures PRO PART REMV PANC, PROX+REMV DUOD+ANAST @WHIPPLE PROCEDURE (WRVU 52.84) Charu Balbuena MD [facility] [place] [address] [facility] Referral ID Status Reason Start Date Expiration Date Visits Re quested Visits Authorized [id number] 1 1 Encounter Details Date Type Department Care Team (Late st Contact Info) Description 01/23/2024 7:52 AM EST Anesthesia Event [place] [id number] Shaheen Cody MD [facility] [place] [address] Zuleima Aguirre, AYE Anesthesia Record Procedure Summary Procedure Name Responsible Anesthesiologist Anesthesia Start Time Anesthesia Stop Time @PECONIC PROCEDURE (WRVU 52.84) (Abdomen) Shaheen Cody MD 01/23/24 0752 01/23/24 1657 Events Date Time Event Comment 01/23/2024 0659 0752 AN Verify 0752 Start 0755 An Start Data 0802 An Induction 0806 An Intubation 0812 Anesthesia Ready 0817 Handoff Intra-procedure anesthesia care was transferred after review of the patient's history, current anesthetic/surgical status and procedural plan, anticipated issues and expected post-operative course (including disposition.) Madan Luke CRNA 0841 Procedure Start 0916 Handoff Intra-procedure anesthesia care was transferred after review of the patient's history, current anesthetic/surgical status and procedural plan, anticipated issues and expected post-operative course (including disposition.) Altno Castaneda CRNA 1123 Break/Relief In I assumed ca re for Break Relief before which we: 1. Identified the patient 2. Identified the responsible provider(s) 3. Reviewed the pertinent medical history 4. Discussed the surgical plan and course 5. Reviewed intra-op anesthesia management and issues during anesthesia 6. Set expectations for the relief (and/or post-procedure) period 7. Allowed opportunity for questions and acknowledgement of understanding Connie Colmenares 1155 Break/Relief Out 1302 Quick Note 6,500 units of Heparin requested by surgeon for surgical fixture of portal vein 1305 Quick Note 1.2L Portal vei n blood loss. Blood ordered, IVP pressors 1353 Handoff Intra-procedure anesthesia care was transferred after review of the patient's history, current anesthetic/surgical status and procedural plan, anticipated issues and expected post-operative course (including disposition.) Alley Kate CRNA 1400 ABG Data Arterial Blood Gas result: pH pCO2 pO2 %O2 Sat FiO2 HCO3 BE Hb K Glucose Lactate 1504 Break/Relief In I assumed ca re for Break Relief before which we: 1. Identified the patient 2. Identified the responsible provider(s) 3. Reviewed the pertinent medical history 4. Discussed the surgical plan and course 5. Reviewed intra-op anesthesia management and issues during anesthesia 6. Set expectations for the relief (and/or post-procedure) period 7. Allowed opportunity for questions and acknowledgement of understanding DENYS BROWN, PUNCH PRESS OPERATOR 1521 Break/Relief Out 1523 ABG Data Arterial Blood Gas result: pH pCO2 pO2 %O2 Sat FiO2 HCO3 BE Hb K Glucose Lactate 1620 Procedure Stop 1643 Extubation/LMA Out 1650 an stop data 165 Recovery or ICU Handoff Nisha ent care was transferred to the destination unit staff after review of the patient's medical history, current anesthetic/surgical status and plan, according to the Provider Handoff Checklist. 1656 Stop Meds Name Total lidocaine IV 100 mg propofoL 100 mg propofol INF 2,318.4 mg rocuronium 330 mg sugammadex 380 mg ePHEDrine 5 mg PHENYLephrine 1,200 mcg HYDROmorphone (pf) (10 mcg/m L), BUPivacaine (pf) 0.1% in sodium chloride 0.9% 250 mL epidural 33.3 mL piperacillin-tazobactam 13.5 g PHENYLephrine INF 15,145 mcg insulin regular INF 9.54 Units calcium chloride 1,500 mg NORepinephrine 56 mcg NORepinephrine INF 1,622 mcg heparin 6,500 Units vasopressin 11 Units lactated ringers infusion 1,000 mL Plasmalyte-A 4,000 mL Plasmalyte-A 3,000 mL albumin (human) 5% 1,000 mL * Agents Name O2 * Blood No blood administrations on file. Lines, Drains, and Airways Type Details Placement Removal Implanted Port 07/05/23; 1440; Sing le Lumen; power injectable port (ct port with attachable chronoflex polyurethane catheter.); other (see comments) (right chest wall.); superior vena cava; placement verified by x-ray; charu balbuena 07/05/23 1440 by Laura Walsh RN Incision 01/23/24; 0841; abdo men; midline 01/23/24 0841 by Floridalma Camp RN PIV bimc-yir-tbfujz cath eter system; 16 gauge; cephalic vein (lateral side of arm), left; Anatomical Landmarks; US Not Used; Roroner; intradermal injection; removed per policy/procedure, catheter/device intact, site symptomatic; 01/28/24; 0516 01/23/24 0700 by 01/28/24 0516 by Jace Montano RN PIV iovu-rad-ahklnd cath eter system; 14 gauge; cephalic vein (lateral side of arm), right; Anatomical Landmarks; US Not Used; Hoehner; removed per policy/procedure, site care per policy/procedure, site symptomatic, catheter/device intact; 01/27/24; 0736 01/23/24 0817 by 01/27/24 0736 by Mila Esposito RN Arterial Line radial artery, left; 20 gauge; Anatomical Landmarks; US Not Used; continuous blood pressure monitoring, frequent blood gas measurement; Walkerehner; Sterile Prep, Sterile Gloves; no longer indicated, catheter intact; 01/24/24; 1400 01/23/24 0817 by 01/24/24 1400 by Nina Tipton RN Incision 07/05/23; 1426; Righ t; chest; LDA not present upon assessment; 01/29/24; 0502 07/05/23 1426 by Laura Walsh RN 01/29/24 0502 by Lilly Yi RN Incision 07/05/23; 1508; abdo men; laparoscopic punctures (specify); s/p diagnostic laparoscopy, trocar sites x 2; LDA not present upon assessment; 01/29/24; 0502 07/05/23 1508 by Laura Walsh RN 01/29/24 0502 by Lilly Yi RN Epidural 01/23/24; 0726; thoracic; T8-9, ALO at 5cm, 15+cm at skin; Dr. Rodgers / Dr. Morejon / Dr. Lyons; analgesia, continuous infusion; no longer indicated, catheter intact, removed with ease, removed per policy; 01/29/24; 0833 01/23/24 0726 by Madan Lou RN 01/29/24 0833 by Madan Lou RN Urethral Catheter 01/23/24; 0750; Abdominal surgery, Surgery longer than 2 hours, Physician order; intermittent coude tip catheter; 100% silicone; 14; 2 (regular witt couldn't be fully insterted, switched to coude tip); 5; 10; drainage bag; tubing intact; 01/29/24; 92701/23/24 0750 by Floridalma Camp RN 01/29/24927 by Vilma Lux RN ETT Mask Ventilation: Difficult (3); ETT Type: Cuffed, Oral; ETT Size: 7.5 mm; Mac Blade: 4; Notes: Asleep, Pre-O2, Stylette; Attempts: 1; Laryngoscopy Grade: 1; ETT Placement Verified By: Capnometry, Auscultation, Visual; Secured at Teeth: 23 cm; Inserted by: Darrian ALVAREZ; Removal Date: 01/23/24; Removal Time: 164201/23/24 0811 by Connie Colmenares V 01/23/24 164 by Alley Kate CRNA NG/OG Tube 01/23/24; 1545; Marvin gaming sump; 18 Fr; left nostril; Taped (taped at 55 cm); Inserted by Darrian SRNA; 01/29/24; 92701/23/24 1545 by Connie Colmenares V 01/29/24927 by Vilma Lux RN Closed/Suction Drain 01/23/24; 1600 (andrew jamshid in OR); RLQ; Bulb; LDA not present upon assessment 01/23/24 1600 by Floridalma Davis RN 01/27/24 1945 by Dione Sharma RN documented in this encounter Social History Tobacco Use Types Packs/Day Years Used Date Smoking Tobacco: Former Cigarettes 4 30 1 963 - 1992 Smokeless Tobacco: Never Alcohol Use Standard Drinks/Week Comments Yes 7 (1 standard drink = 0.6 oz pur e alcohol) [facility] Utilities Answer Date Recorded In the past 12 months has [employer], gas, oil, or water [employer] threatened to shut off services in your [...] a skilled nursing (including now)? No 06/04/2023 Housing Stability Vital [...] time in the past 12 m [facility], were you homeless or living in a skilled nursing (including now)? No 01/24/2024 DH IPV Inpatient [...] OR Notes * Anesthesia Postprocedure Evaluation - Shaheen Cody MD - 01/23/2024 5:25 PM EST Department of Anesthesiology Post-procedure Note Patient: Wero Sadler Procedure Summary Date: 01/23/24 Room / Location: [address] MAIN OR Anesthesia Start: 751 Anesthesia Stop: 1656 Procedures: @WHIPPLE PROCEDURE (WRVU 52.84) (Abdomen) PORTAL VEIN REPAIR (WRVU 13.24) @OMENTAL FLAP, INTRA-ABDOMINAL (WRVU 6.54) (Abdomen) Diagnosis: (PANCREAS CANCER) Surgeons: Charu Balbuena MD Responsible Provider: Shaheen Cody MD Anesthesia Type: general ASA Status: 3 All Anesthesia Providers: Anesthesiologist: Shaheen Cody MD PUNCH PRESS OPERATOR: Alton Castaneda CRNA; Madan Luke CRNA; Alley Kate CRNA Student Nurse Filer Helper: Connie Colmenares V Vitals Value Taken Time BP 109/63 01/23/24 1715 Temp 37.2 ??C (99 ??F) 01/23/24 1654 Pulse 71 01/23/24 1724 Resp 20 01/23/24 1724 SpO2 100 % 01/23/24 1724 Pain Level Vitals shown include unfiled device data. Patient Location: PACU/[facility] Level of Consciousness: Conscious but Sleepy Pain Management: Satisfactory Analgesia PONV: None Cardiovascular Status: At Baseline Respiratory Status: At Baseline Postoperative Fluid Status: Intravascular EUvolemia Possible Anesthetic Complications: NONE apparent at time of evaluation Final Primary Anesthesia Type: General (The anesthetic type performed was the same as planned.) Comments: * Anesthesia Procedure Notes - Jace Lyons MD - 01/23/2024 7:54 AM EST Associated Order(s): Neuraxial Block Procedure: Neuraxial Block Post-op Pain Control Post-op pain management at the request of surgeon. Type: Epidural The patient was greeted. The sedation plan, its benefits, risks and alternatives were discussed with the patient. The patient has consented to the procedure. The medical history and chart were reviewed. The timeout was performed. Start time: 01/23/2024 7:22 AM End time: 01/23/2024 7:50 AM Patient Location: Operating Room (OR19) Patient Prep Position: Prone Prep: Hand Hygiene, Hat, Mask, Sterile Gloves, Gown, Chlorhexidine and Patient Draped Skin Anesthetic Lidocaine 1% 4 ml Procedure Technique Level of needle insertion: T12-L1 and L1-2 Needle approach: paramedian Needle Type: Tuohy Gauge: 17 Needle length: 3.5 in Needle insertion depth when ALO achieved: 5 cm Technique for Loss of Resistance: ALO saline Catheter at skin depth: 15 cm Dressing/Secured with: Tape, Tegaderm and Chlorhexidine Tegaderm Number of attempts: 2 Medications: Date/Time: 01/23/2024 7:22 AM Events/Notes Imaging: fluoroscopy guided and epidurogram obtained Level of Epidural Tip via Fluoroscopy: T8-9 Iohexol 300 mgI/mL, 2 mL Events: None Additional Notes: Initial attempt of needle insertion was T12-L1. Difficulty advancing needle around spinous process, therefore Tuohy was removed and inserted at the L1 space. Loss at 5 cm at the skin, and no evidence of intrathecal injection. Patient tolerated the procedure well without complicatio ns. Performed by: Resident/PUNCH PRESS OPERATOR: Jace Lyons MD Fellow: Kolton Morejon DO Attending Physician: Cayetano Rodgers MD Authorized by: Cayetano Rodgers MD ~~~~~~~~~~~~~~~~~~~~~~~~~~~~~~~~~~~~~~~~~~~~~~~~~~~~~~~~~~~~ * Anesthesia Preprocedure Evaluation - Shaheen Cody MD - 01/22/2024 1:45 PM EST Pre-Anesthesia Evaluation for: Wero Sadler a 73 y.o. male. Procedure(s): @IPPLE PROCEDURE (WRVU 52.84) Patient Active Problem List Diagnosis Date Noted ??? Malignant neoplasm of head of pancreas 07/24/2023 ??? Bradycardia 11/18/2021 ??? Bladder dysfunction/retention with risk of stretch injury 11/18/2021 ??? s/p Right JIMI (Posterior), Dr. Bryce Hicks 11/17/21 11/17/2021 ??? Altered mental status, unspecified [...] left knee, right knee x 2 ??? PRG FLUOROSCOPY EXAM UP TO 1 HR PHY OR OTH HLTH CARE PROV N/A 07/05/2023 FLUOROSCOPY (WRVU 0.3) performed by Charu Balbuena MD at [facility] OSC ??? PRO ARTHROPLASTY ACETABULAR/PROX FEM PROSTC AGRFT/ALGRFT Left 10/10/2020 TOTAL HIP ARTHROPLASTY - POSTERIOR (WRVU 20.72) performed by Ismael Wu MD at [facility] MAIN OR ??? PRO ARTHROPLASTY ACETABULAR/PROX FEM PROSTC AGRFT/ALGRFT Right 11/17/2021 TOTAL HIP ARTHROPLASTY - POSTERIOR (WRVU 20.72) performed by Ismael Wu MD at [facility] MAIN OR ??? PRO ENDOSCOPIC US EXAM, ESOPH N/A 07/02/2023 UPPER EUS- ENDOSCOPIC ULTRASOUND (WRVU 3.47) performed by Pako Lopez MD at [facility] ENDOSCOPY ??? PRO ERCP, W/REMOVAL STONE, TARYN/PANCR DUCTS 07/02/2023 ERCP W/REMOVAL CALCULI/DEBRIS FROM BILARY/PANCREATIC DUCT(S) (WRVU 6.63) performed by Pako Lopez MD at [facility] ENDOSCOPY ??? PRO ERCP,DIAGNOSTIC N/A 07/02/2023 ERCP (WRVU 5.85) performed by Pako Lopez MD at [facility] ENDOSCOPY ??? PRO EXPLORATION NOT FOLLOWED BY SURG NECK ARTERY Right 07/14/2021 @EXPLORATION NOT FOLLOWED BY SURGICAL REPAIR, ARTERY; NECK (CAROTID OR SUBCLAVIAN) (WRVU 9.19) performed by Basim Barr MD at [facility] MAIN OR ??? PRO INSERT TUNNELED CV CATH W SUBQ PORT, AGE 5 YRS OR OLDER N/A 07/05/2023 MARIO\AMELIA.CATHETER,TUNNELED, WITH SQ PORT OR PUMP OVER 5YR (WRVU 5.79) performed by Maggi Balbuena MD at [facility] OSC ??? PRO LAP, DIAGNOSTIC ABDOMEN N/A 07/05/2023 LAPAROSCOPY, DIAGNOSTIC, ABDOMEN (WRVU 5.14) performed by Charu Balbuena MD at [facility] OSC ??? PRO LASER VAPORIZATION SURGERY PROSTATE, COMPLETE Midline 02/02/2021 CYSTO, LASER TURP (WRVU 12.15) performed by Cayetano Engle MD at [facility] MAIN OR ??? PRO PLACE TRANSCATHETER STENT, CCA W EMBOLIC PROECT Right 07/14/2021 @TRANSCATH INTRAVASCULAR STENT,CAROTID,PERC,W\EMBOLIC PROT. (WRVU 18) performed by Basim Barr MD at [facility] MAIN OR Social History Tobacco Use ??? Smoking status: Former Current packs/day: 0.00 Average packs/day: 4.0 packs/day for 30.0 years (120.0 ttl pk-yrs) Types: Cigarettes Start date: 1962 Quit date: 1992 Years since quittin.9 ??? Smokeless tobacco: Never Substance Use Topics [...] a dye used during vascular procedure at [facility] in [place]: shaking Has tolerated MRI and CT contrast. ??? Pazopanib Other (See Comments) UGT1A1 Poor Metabolizer. See Clinical Pharmacist Note from 07/04/23 for information. ??? Sacituzumab Govitecan-Hziy Other (See Comments) UGT1A1 Poor Metabolizer. See Clinical Pharmacist Note from 07/04/23 for dosing recommendations. Medications: MAR and/or home medications have been reviewed. Physical Exam: Preprocedure Vitals Current as of 01/22/24 1345 No BP, pulse, respiration, SpO2, or temperature recorded. Height: Weight: BMI: IBW: Airway Assessment: Mallampati: II TM distance: >3 FB Neck ROM: full Cardiovascular Assessment: Rhythm: regular system normal Pulmonary Assessment: breath sounds clear [...] general, with a(n) intravenous induction 73 y.o. gentleman with pancreatic cancer for Whipple procedure. Chart and labs reviewed; patient seen and examined PMH significant for: CAD s/p CABGx3 (2018, on Imdur and carvedilol), CVA s/p left CEA 11/2019 (on aspirin/clopidogrel), HTN (lisinopril, amlodipine), AION of right eye, prostate cancer s/p TURP, colorectal cancer, OLGA on CPAP, former smoker (120 pack years), PAD, DM2, and pancreatic cancer. He is also blind. Anesthetic History: tolerated GA in past; grade [...] normal antegrade Doppler waveforms and velocities bilaterally. Assessment/Plan: ASA 3 GA/ETT; routine monitors; arterial line; adequate IV access; epidural for post- op pain control Risks, plans, and procedures discussed with patient who understands and consents; questions and concerns addressed Region - Other Informed Consent: Anesthetic plan and risks discussed with patient. Use of blood products discussed with patient who consented to blood products. Plan discussed with PUNCH PRESS OPERATOR. Anesthesia Screening documented in this encounter Plan of Treatment Upcoming Encounters Date Type Department Care Team (Late st Contact Info) Description 03/24/2024 9:00 AM EST TH Visit (TeleHealth) Radiation Oncology at [address] [phone] Ping Moore PA [facility] DR [place] [address] 03/26/2024 9:30 AM EST Office Visit Hematology/Oncology at [address] [phone] Yessi Renee [address] HEMATOLOGY AND ONCOLOGY [place], [place] [id number] 03/26/2024 9:30 AM EST Infusion Hematology Oncology at [address] [phone] 04/09/2024 9:30 AM EST Office Visit Hematology/Oncology at [address] [phone] Cl Hess MD [facility] [place] [address] Yessi Renee APRN [facility] [address] [place] [address] 04/09/2024 10:00 AM EST Infusion Hematology Oncology at [address] [phone] 04/23/2024 9:30 AM EST Office Visit Hematology/Oncology at [address] [phone] Cl Hess MD [facility] [place] [address] [address] [place] [address] 04/23/2024 10:00 AM EST Infusion Hematology Oncology at [address] [phone] 05/18/2024 4:30 PM EDT TH Visit (TeleHealth) [place] [phone] Malachi Rothman MD [facility] [place] [address] documented as of this encounter Procedures Procedure Name Priority Date/Time Associated Diagnosis Comments [id number] ONLY Routine 01/23/2024 7:22 AM EST documented in this encounter Results * [id number] ONLY (01/23/2024 7:22 AM EST) Narrative Cayetano [...] procedure well without complications. Performed by: ?? Resident/PUNCH PRESS OPERATOR: ? Jace Lyons MD ?? Fellow: ?Kolton Morejon, DO ?? Attending Physician: ? Cayetano Rodgers MD Authorized by: Cayetano Rodgers MD ?? ~~~~~~~~~~~~~~~~~~~~~~~~~~~~~~~~~~~~~~~~~~~~~~~~~~~~~~~~~~~~ Cayetano Rodgers MD OUTPATIENT DIETITIAN GS documented in this encounter Visit Diagnoses Not on filedocumented in this encounter Administered Medications Inactive Administered Medications - up to 3 most recent administrations Medication Order MAR Action Action Date Dose Rate Site albumin (human) 5% 250 mL intravenous solution Intravenous, CONTINUOUS PRN, Starting on Ammy 01/23/24 at 1122, Until Ammy 01/23/24 at 1701, Anesthesia Intra-op, Routine New Bag 01/23/2024 1:21 PM EST Restarted 01/23/2024 12:44 PM EST New Bag 01/23/2024 11:31 AM EST calcium chloride 10% (100 mg/mL) injection Intravenous, PRN, Starting on Ammy 01/23/24 at 1049, Until Ammy 01/23/24 at 1701, Anesthesia Intra-op, Routine Given 01/23/2024 2:16 PM EST 500 mg Given 01/23/2024 11:07 AM EST 500 mg Given 01/23/2024 10:49 AM EST 500 mg electrolyte replacement solution (pH 7.4) (Normosol-R, Plasmalyte-A) infusion Intravenous, CONTINUOUS PRN, Starting on Ammy 01/23/24 at 0755, Until Ammy 01/23/24 at 1701, Anesthesia Intra-op New Bag 01/23/2024 1:33 PM EST New Bag 01/23/2024 10:27 AM EST New Bag 01/23/2024 7:55 AM EST electrolyte replacement solution (pH 7.4) (Normosol-R, Plasmalyte-A) infusion Intravenous, CONTINUOUS PRN, Starting on Ammy 01/23/24 at 1110, Until Ammy 01/23/24 at 1701, Anesthesia Intra-op New Bag 01/23/2024 2:23 PM EST New Bag 01/23/2024 11:10 AM EST ePHEDrine sulfate (5 mg/mL) multi-dose injection Intravenous, PRN, Starting on Ammy 01/23/24 at 1204, Until Ammy 01/23/24 at 1701, Anesthesia Intra-op, Routine Given 01/23/2024 12:04 PM EST 5 mg heparin (porcine) (1,000 units/mL) injection Intravenous, PRN, Starting on Ammy 01/23/24 at 1302, Until Ammy 01/23/24 at 1701, Anesthesia Intra-op, Routine Given 01/23/2024 1:02 PM EST 6,500 Units HYDROmorphone (pf) (10 mcg/mL), BUPivacaine (pf) 0.1% in sodium chloride 0.9% 250 mL epidural Epidural, Epidural Type: Continuous + PCEA, Continuous Rate: 6 mL/hr, PCEA Dose: 3 mL, PCEA Frequency: [...] on a programmed frequency, Recovery (Recovery-Hospital Unit) Restarted 01/23/2024 1:19 PM EST 3 mL/hr 3 mL/hr Rate/Dose Change 01/23/2024 12:41 PM EST 3 mL/hr 3 mL/h r Rate/Dose Change 01/23/2024 11:14 AM EST 4 mL/hr 4 mL/h r insulin regular (Myxredlin) (1 unit/mL) in sodium chloride 0.9% 100 mL infusion Intravenous, CONTINUOUS PRN, Starting on Ammy 01/23/24 at 0935, Until Ammy 01/23/24 at 1701, Anesthesia Intra-op, Routine Rate/Dose Change 01/23/2024 11:50 AM EST 1 Units/hr 1 mL/hr Rate/Dose Change 01/23/2024 10:50 AM EST 2 Units/hr 2 mL/h r New Bag 01/23/2024 9:35 AM EST 1.94 Units/hr 1.94 mL/hr lactated ringers infusion 1,000 mL, at 100 mL/hr, Intravenous, CONTINUOUS, Starting on Ammy 01/23/24 at 0700, Until Ammy 01/23/24 at 1717, Day of Surgery (Day of Procedure) New Bag 01/23/2024 10:02 AM EST New Bag 01/23/2024 6:45 AM EST 1,000 mLs 100 mL/hr lidocaine (pf) (Xylocaine) (20 mg/mL) 2% injection syringe Intravenous, PRN, Starting on Ammy 01/23/24 at 0802, Until Ammy 01/23/24 at 1701, Anesthesia Intra-op, Routine Given 01/23/2024 8:02 AM EST 100 mg NORepinephrine (Levophed) (16 mcg/mL) in dextrose 5% 250 mL infusion Intravenous, CONTINUOUS PRN, Starting on Ammy 01/23/24 at 1254, Until Ammy 01/23/24 at 1701, Anesthesia Intra-op, Routine Rate/Dose Change 01/23/2024 4:03 PM EST 4 mcg/min 15 mL/hr Rate/Dose Change 01/23/2024 3:26 PM EST 6 mcg/min 22.5 mL /hr Rate/Dose Change 01/23/2024 2:33 PM EST 8 mcg/min 30 mL/h r NORepinephrine (Levophed) injection Intravenous, PRN, Starting on Ammy 01/23/24 at 1254, Until Ammy 01/23/24 at 1701, Anesthesia Intra-op, Routine Given 01/23/2024 1:18 PM EST 16 mcg Given 01/23/2024 1:10 PM EST 16 mcg Given 01/23/2024 1:06 PM EST 8 mcg PHENYLephrine (Jose-Synephrine) (80 mcg/mL) in sodium chloride 0.9% 250 mL infusion Intravenous, CONTINUOUS PRN, Starting on Ammy 01/23/24 at 0812, Until Ammy 01/23/24 at 1701, Anesthesia Intra-op, Routine Rate/Dose Change 01/23/2024 4:32 PM EST 20 mcg/min 15 mL/hr Restarted 01/23/2024 4:15 PM EST 40 mcg/min 30 mL/hr Rate/Dose Change 01/23/2024 1:30 PM EST 25 mcg/min 18.75 m L/hr PHENYLephrine in NS (PF) (JOSE-SYNEPHRINE) 0.8 mg/10 mL (80 mcg/mL) multi-dose injection Syringe Intravenous, PRN, Starting on Ammy 01/23/24 at 0818, Until Ammy 01/23/24 at 1701, Anesthesia Intra-op, Routine Given 01/23/2024 4:29 PM EST 80 mcg Given 01/23/2024 4:15 PM EST 80 mcg Given 01/23/2024 12:44 PM EST 80 mcg piperacillin-tazobactam (Zosyn) injection Intravenous, PRN, Starting on Ammy 01/23/24 at 0831, Until Ammy 01/23/24 at 1701, Anesthesia Intra-op, Routine Given 01/23/2024 2:56 PM EST 4.5 g Given 01/23/2024 10:56 AM EST 4.5 g Given 01/23/2024 8:31 AM EST 4.5 g propofoL (Diprivan) (10 mg/mL) infusion Intravenous, CONTINUOUS PRN, Starting on Ammy 01/23/24 at 0806, Until Ammy 01/23/24 at 1701, Anesthesia Intra-op, Routine Rate/Dose Change 01/23/2024 9:46 AM EST 50 mcg/kg/min 24.15 mL/hr Rate/Dose Change 01/23/2024 9:16 AM EST 75 mcg/kg/min 36.2 25 mL/hr New Bag 01/23/2024 8:06 AM EST 100 mcg/kg/min 48.3 mL/h r propofoL (Diprivan) 10 mg/mL bolus injection (Anesthesia) Intravenous, PRN, Starting on Ammy 01/23/24 at 0804, Until Ammy 01/23/24 at 1701, Anesthesia Intra-op Given 01/23/2024 8:04 AM EST 100 mg rocuronium (Zemuron) (10 mg/mL) multi-dose injection Intravenous, PRN, Starting on Ammy 01/23/24 at 0902, Until Ammy 01/23/24 at 1701, Anesthesia Intra-op, Routine Given 01/23/2024 4:06 PM EST 30 mg Given 01/23/2024 3:32 PM EST 20 mg Given 01/23/2024 2:35 PM EST 20 mg sugammadex (Bridion) 100 mg/mL injection Intravenous, PRN, Starting on Ammy 01/23/24 at 1622, Until Ammy 01/23/24 at 1701, Anesthesia Intra-op, Routine Given 01/23/2024 4:22 PM EST 380 mg vasopressin (Vasostrict) injection Intravenous, PRN, Starting on Ammy 01/23/24 at 1305, Until Ammy 01/23/24 at 1701, Anesthesia Intra-op, Routine Given 01/23/2024 3:21 PM EST 1 Units Given 01/23/2024 3:06 PM EST 1 Units Given 01/23/2024 2:33 PM EST 1 Units documented in this encounter Care Teams Hvac Project Engineer Relationship Specialty Start Date End Date Tristen Hunter MD [address] [place] [address] DR LAM, [place] [address] PCP - General Family Medicine 07/04/23 documented as of this encounter
--- OUTSIDE RECORDS SUMMARY | 2024-03-12 10:51 | XMS_ITS | Encounter Summary ---
Author Organization [facility] [place] [address] Care Team Providers Care Rib Trim Separator Name Role Phone Tristen Hunter MD Primary Care Provider [phone] Encounter Details Date Type Department Care Team (Late st Contact Info) Description 12/06/2023 Telephone Hematology/Oncology at [address] [phone] [facility] DR HEMAT[place] [address] Social History Tobacco Use Types Packs/Day Years Used Date Smoking Tobacco: Former Cigarettes 4 30 1 963 - 1992 Smokeless Tobacco: Never Alcohol Use Standard Drinks/Week Comments Yes 7 (1 standard drink = 0.6 oz pur e alcohol) [facility] Utilities Answer Date Recorded In [...] Miscellaneous Notes * Telephone Encounter - Lupe Velasquez RD - 12/06/2023 10:32 AM EDT Nutrition Note Note added in error documented in this encounter Plan of Treatment Upcoming Encounters Date Type Department Care Team (Late Contact Info) Description 03/24/2024 9:00 AM EST TH Visit (TeleHealth) Radiation Oncology at [address] [phone] Ping Moore PA [facility] DR [place]AT[place] [address] 03/26/2024 9:30 AM EST Office Visit Hematology/Oncology at [address] [phone] HEMATOLOGY AND ONCOLOGY [place], [place] [address] 03/26/2024 9:30 AM EST Infusion Hematology Oncology at [address] [phone] 04/09/2024 9:30 AM EST Office Visit Hematology/Oncology at [address] [phone] Cl Hess MD [facility] [place] [address] HEMATOLOGY AND ONCOLOGY [place], [place] [address] 04/09/2024 10:00 AM EST Infusion Hematology Oncology at [address] [phone] 04/23/2024 9:30 AM EST Office Visit Hematology/Oncology at [address] [phone] Cl Hess MD [facility] [place] [address] [address] HEMATOLOGY AND ONCOLOGY [place], [place] [address] 04/23/2024 10:00 AM EST Infusion Hematology Oncology at [address] [phone] 05/18/2024 4:30 PM EDT TH Visit (TeleHealth) [place] [address] Malachi Rothman MD [facility] [place] [address] documented as of this encounter Visit Diagnoses Not on filedocumented in this encounter Care Teams Rib Trim Separator Relationship Specialty Start Date End Date Tristen Hunter MD [address] [place] [address] [place] [address] PCP - General Family Medicine 07/04/23 documented as of this encounter
--- OUTSIDE RECORDS SUMMARY | 2024-03-12 10:51 | XMS_ITS | Encounter Summary ---
[place] [address] Care Team Providers Care Malt Roaster Name Role Phone Tristen Hunter MD Primary Care Provider [phone] Reason for Referral * Diagnostic Test (Routine) - Closed Specialty Diagnoses / Procedures Referred By Marques livingston Referred To Contact Radiology Diagnoses Malignant neoplasm of head of pancreas Procedures CT Chest Abdomen Pelvis w Contrast (Generic) Charu Balbuena MD [facility] [place] [address] [facility] [place] [address] Referral ID Status Reason Start Date Expiration Date V isits Requested Visits Authorized [id number] Closed Specialty Service Requested 11/27/2023 05/26/2025 1 1 Reason for Visit * Diagnostic Test (Routine) - Closed Specialty Diagnoses / Procedures Referred By Contermelinda t Referred To Contact Radiology Diagnoses Malignant neoplasm of head of pancreas Procedures CT Chest Abdomen Pelvis w Contrast (Generic) Charu Balbuena MD [facility] [place] [address] [facility] [place] [address] Referral ID Status Reason Start Date Expiration Date V isits Requested Visits Authorized [id number] Closed Specialty Service Requested 11/27/2023 05/26/2025 1 1 Encounter Details Date Type Department Care Team (Late st Contact Info) Description 12/17/2023 1:26 PM EDT - 12/17/2023 11:59 PM EDT Hospital [place] [address] Charu Balbuena MD [facility] [place] [address] Malignant neoplasm of head of pancreas Discharge Disposition: Home Social History Tobacco Use Types Packs/Day Years Used Date Smoking Tobacco: Former Cigarettes 4 30 1 3 - 1992 Smokeless Tobacco: Never Alcohol Use Standard Drinks/Week Comments Yes 7 (1 standard drink = 0.6 oz pur e alcohol) [facility] Utilities Answer Date Recorded In the past 12 months has e electric, gas, oil, or water [employer] threatened to shut off services in your [...] in a alf (including now)? No 06/04/2023 DH IPV Inpatient [...] Sig Dispensed Refills Start Date End Date fgchzp-fambcgdn-tgb lase DR (Creon 24) 24,000-76,000 -120,000 unit [...] 20 mg by mouth daily. 05/20/2023 omega 2-edv-vbr-fish oil 250-350-1,000 mg Capsule Take 1,000 mg [...] for 2 days. 3 tablet 02/01/2024 02/03/2024 ondansetron (Zofran) 8 mg tabletIndications:M alignant neoplasm of head of pancreas,Drug-induc ed nausea and vomiting Take 1 tablet by mouth every 8 hours as needed for Nausea. Do not use for 72 hours after chemotherapy 20 tablet 5 07/12/2023 02/01/2024 prochlorperazine (Compazine) 10 mg tabletIndications:M alignant neoplasm of head of pancreas,Drug-induc ed nausea and vomiting Take 1 tablet by mouth every 6 hours as needed for Nausea. 20 tablet 5 07/12/2023 02/01/2024 documented as of this encounter Plan of Treatment Upcoming Encounters Date Type Department Care Team (Late st Contact Info) Description 03/24/2024 9:00 AM EST TH Visit (TeleHealth) Radiation Oncology at [address] [phone] Ping Moore PA [facility] DR HEMATOLOGY [place] [address] 03/26/2024 9:30 AM EST Office Visit Hematology/Oncology at [address] [phone] [address] HEMATOLOGY AND ONCOLOGY [place], [place] [address] 03/26/2024 9:30 AM EST Infusion Hematology Oncology at [address] [phone] 04/09/2024 9:30 AM EST Office Visit Hematology/Oncology at [address] [phone] Cl Hess MD [facility] [place] [address] [address] HEMATOLOGY AND ONCOLOGY [place], [place] [address] 04/09/2024 10:00 AM EST Infusion Hematology Oncology at [address] [phone] 04/23/2024 9:30 AM EST Office Visit Hematology/Oncology at [address] [phone] Cl Hess MD [facility] [place] [address] [address] HEMATOLOGY AND ONCOLOGY [place], [place] [address] 04/23/2024 10:00 AM EST Infusion Hematology Oncology at [address] [phone] 05/18/2024 4:30 PM EDT TH Visit (TeleHealth) [place] [address] Malachi Rothman MD [facility] DR [place] [address] documented as of this encounter Procedures Procedure Name Priority Date/Time Associated Diagnosis Comments CT CHEST ABDOMEN PELVIS W CONTRAST (GENERIC) Routine 12/17/2023 2:09 PM EDT Malignant neoplasm of head of pancreas documented in this encounter Results * CT Chest Abdomen Pelvis w Contrast (Generic) (12/17/2023 2:09 PM EDT) WORKSTATION ID [id number] [facility] Anatomical Region Laterality Modality Abdomen, Pelvis Computed [...] who have questions please contact the health healthcare representative that requested your imaging first. ? Narrative [...] with significant calcification of the aorta and tanana coronary vessels. I do not appreciate any [...] with significant calcification of the aorta and tanana coronary vessels. I do notappreciate any bulky [...] the arterial phase series there is persistent uhe-rzqkpoleix-scucpsrrhho along the right and inferior aspect of [...] patients who have questions please contactthe health healthcare representative that requested your imaging first. Charu Balbuena MD IMG CT ORDERABLES documented in this encounter Visit Diagnoses Diagnosis Malignant neoplasm of head of pancreas documented in this encounter Administered Medications Inactive Administered Medications - up to 3 most recent administrations Medication Order MAR Action Action Date Dose Rate Site iohexoL (Omnipaque) (350 mg/mL) solution 0-200 mL 0-200 mL, Intravenous, ONCE PRN, 1 dose, Starting on Sat12/17/23 at 1405, Until Sat12/17/23 at 1405, Per Protocol, Warning Vesicant/Irritant Medication , Radiology Contrast, Routine Given 12/17/2023 2:05 PM EDT 120 mLs documented in this encounter Care Teams Malt Roaster Relationship Specialty Start Date End Date Tristen Hunter MD [address] [place] [address] [place] [address] PCP - General Family Medicine 07/04/23 documented as of this encounter
--- OUTSIDE RECORDS SUMMARY | 2024-03-12 10:51 | XMS_ITS | Encounter Summary ---
Author Organization [facility] [place] [address] Care Team Providers Care Technician Support Engineer Name Role Phone Tristen Hunter MD Primary Care Provider [phone] Encounter Details Date Type Department Care Team (Late st Contact Info) Description 12/18/2023 1:00 PM EDT Office Visit Hematology/Oncology at [address] [phone] [facility] DR [place] [address] Colorectal cancer Social History Tobacco Use Types Packs/Day Years Used Date Smoking Tobacco: Former Cigarettes 4 30 1 3 - 1992 Smokeless Tobacco: Never Alcohol Use Standard Drinks/Week Comments Yes 7 (1 standard drink = 0.6 oz pur e alcohol) [facility] Utilities Answer Date Recorded In the past 12 months has [employer] electric, gas, oil, or water company threatened [...] in a usp (including now)? No 06/04/2023 DH IPV Inpatient [...] Progress Notes * Lupe Velasquez, RD - 12/18/2023 1:00 PM EDT Nutrition Note Spoke with Mauri in clinic today for nutrition related to pancreatic cancer. Patient completed SBRT on 11/26. He completed 8 cycles of mFolfirinox 07/11-10/18/23. Patient reports tolerating SBRT very well, only really had side effect of some fatigue. He is scheduled for Whipple procedure on 01/22. Patient eats 3 meals/day plus snacks. He typically makes his own breakfast, has Meals on Wheels meal for lunch, and his brother prepares dinner for them both. In general, he often eats large portionsat meals. Patient has long- and short-acting insulin, managed by PCP. He takes 38 units long-acting insulin in AM and sliding scale insulin four times daily (at AC and HS). He usually takes 4-6 units short-acting insulin 4x/day. He has been trying to manage hypoglycemia in grazing aide hours. He has a CGM, and cell phone reads his BG value aloud to him as he is blind. BG was 278 mg/dl per CGM during our visit today. He takes 4 capsules of Creon 24 per meal and 2 per snack. Patient re-gained most of the weight he lost in prior year during zahraa-adjuvant chemo and SBRT. Wt Readings from Last 10 Encounters: 12/17/23 95.7 kg (211 lb) 11/29/23 92.2 kg (203 lb 3.2 oz) 12/02/23 90.7 kg (200 lb) 11/27/23 89.3 kg (196 lb 12.8 oz) 11/25/23 90.1 kg (198 lb 9.6 oz) 11/21/23 90.3 kg (199 lb) 11/18/23 90.7 kg (200 lb) 11/15/23 90.3 kg (199 lb) 11/01/23 91.9 kg (202 lb 9.6 oz) 10/30/23 92.7 kg (204 lb 4.8 oz) 07/05/23 79.8 kg (176 lb) BMI 29.4 35# re-gain in 5.5 months 07/04-12/16 Includes 8# gain in past 3 weeks 11/28-12/16 44# (23.2% body weight) loss over past year per chart 07/31/22-07/05/23 Lost 85# total per patient Diet: 24 hour recall: Breakfast: 2 eggs, 2 turkish muffins, 4 slices cheese, 4 donut holes Lunch: MOW (skips veg and dessert) Dinner: Double cheeseburger, fries and Root Beer - unusual, ate out Beverages: mostly water, glass of wine at night most nights, occasionally regular soda Dislikes diet soda Medications: Creon 24 (2 per meal, 1 per snack), Flomax, Zofran prn, Compazine prn, long acting insulin 38 units in AM, sliding scale insulin (QID AC HS), chlorthalidone, omeprazole, omega-3, amlodipine, carvedilol, lisinopril, folic acid, imdur, atorvastatin, aspirin Labs on 12/16: BG 207, BUN 14, Creat 0.55, Na 137, K 3.8, Ca 9.0, Alb 4.0, AST 21, ALT 52, AlkPhos 209H, Tbili 0.9 Nutrition Problem: Altered GI function and altered nutrition related labs related to DM and pancreatic cancer as evidenced by need for Creon 24 (4 per meal, 2 per snack) and insulin dependence. Estimated needs based on 95.7 k kcals (25 kcal/kg) BMI 29.4 96-124 g protein (1-1.3 g/kg) 1 ml/kcal fluids Recommendations: Encouraged continued adequate intake to maintain weight and adequate hydration. Patient is not wanting to gain any more weight, felt more comfortable at a lower weight. Encouraged weight maintenance for now in light of upcoming surgery. Discussed Ensure Surgery as pre-surgical protein drink, but this is both cost prohibitive and relatively high in carbohydrates which may not be the best given diagnosis of IDDM. Provided case of 24 bottles of Glucerna and recommended 2 bottles daily for 5 days prior to surgery. Monitor BG. Patient may benefit from endocrinology consult while inpatient following surgery. PCP manages his long- and short-acting insulin currently and plans to meet with him prior to surgery. Plan to call patient following discharge from hospital next month. documented in this encounter Plan of Treatment Upcoming Encounters Date Type Department Care Team (Late st Contact Info) Description 03/24/2024 9:00 AM EST TH Visit (TeleHealth) Radiation Oncology at [address] [phone] Ping Moore PA [facility] HEMATOLOGY AND ONCOLOGY [place], [place] [phone] 03/26/2024 9:30 AM EST Office Visit Hematology/Oncology at [address] [phone] [address] HEMATOLOGY AND ONCOLOGY [place], [place] [address] [phone] 03/26/2024 9:30 AM EST Infusion Hematology Oncology at [address] [phone] 04/09/2024 9:30 AM EST Office Visit Hematology/Oncology at [address] [phone] Cl Hess MD [facility] [place] [address] [address] HEMATOLOGY AND ONCOLOGY [place], [place] [phone] 04/09/2024 10:00 AM EST Infusion Hematology Oncology at [address] [phone] 04/23/2024 9:30 AM EST Office Visit Hematology/Oncology at [address] [phone] Cl Hess MD [facility] [place] [address] [address] [place] [address] 04/23/2024 10:00 AM EST Infusion Hematology Oncology at [address] [phone] 05/18/2024 4:30 PM EDT TH Visit (TeleHealth) [place] [address] Malachi Rothman MD [facility] [place] [address] documented as of this encounter Visit Diagnoses Diagnosis Colorectal cancer Malignant neoplasm of rectosigmoid junction documented in this encounter Care Teams Technician Support Engineer Relationship Specialty Start Date End Date Tristen Hunter MD [address] [place] [address] [place] [address] PCP - General Family Medicine 07/04/23 documented as of this encounter
--- OUTSIDE RECORDS SUMMARY | 2024-03-12 10:51 | XMS_ITS | Encounter Summary ---
[place] [address] Care Team Providers Care Voice Intercept Technician Name Role Phone Tristen Hunter MD Primary Care Provider [phone] Encounter Details Date Type Department Care Team (Latest Contact Info) Description 12/17/2023 Travel Social History Tobacco Use Types Packs/Day Years Used Date Smoking Tobacco: Former Cigarettes 4 30 1 963 - 1992 Smokeless Tobacco: Never Alcohol Use Standard Drinks/Week Comments Yes 7 (1 standard drink = 0.6 oz pur e alcohol) [facility] Utilities Answer Date Recorded In the past 12 months has [employer] electric, gas, oil, or water company threatened [...] EST TH Visit (TeleHealth) Radiation Oncology at [address] [phone] Ping Moore PA [facility] DR HEMATOLOGY [place] [address] 03/26/2024 9:30 AM EST Office Visit Hematology/Oncology at [address] [phone] Yessi Renee APRN [address] [place] [address] DR [place] [address] 03/26/2024 9:30 AM EST Infusion Hematology Oncology at [address] [phone] 04/09/2024 9:30 AM EST Office Visit Hematology/Oncology at [address] [phone] Cl Hess MD [facility] [place] [address] [address] HEMATOLOGY AND ONCOLOGY [place], [place] [phone] 04/09/2024 10:00 AM EST Infusion Hematology Oncology at [address] [phone] 04/23/2024 9:30 AM EST Office Visit Hematology/Oncology at [address] [phone] Cl Hess MD [facility] [place] [address] [address] [place] [address] 04/23/2024 10:00 AM EST Infusion Hematology Oncology at [address] [phone] 05/18/2024 4:30 PM EDT TH Visit (TeleHealth) [place] [address] Malachi Rothman MD [facility] [place] [address] documented as of this encounter Visit Diagnoses Not on filedocumented in this encounter Care Teams Voice Intercept Technician Relationship Specialty Start Date End Date Tristen Hunter MD [address] [place] [address] [place] [address] PCP - General Family Medicine 07/04/23 documented as of this encounter
--- OUTSIDE RECORDS SUMMARY | 2024-03-12 10:51 | XMS_ITS | Encounter Summary ---
[place] [address] Care Team Providers Care Bet Taker Name Role Phone Tristen Hunter MD Primary Care Provider Encounter Details Date Type Department Care Team (Latest Contact Info) Description 11/29/2023 Travel Social History Tobacco Use Types Packs/Day Years Used Date Smoking Tobacco: Former Cigarettes 4 30 1 963 - 1992 Smokeless Tobacco: Never Alcohol Use Standard Drinks/Week Comments Yes 7 (1 standard drink = 0.6 oz pur e alcohol) [facility] Utilities Answer Date Recorded In the past 12 months has [employer] electric, gas, oil, or water company threatened [...] EST TH Visit (TeleHealth) Radiation Oncology at [address] [phone] Ping Moore PA [facility] DR HEMATOLOGY [place] [address] 03/26/2024 9:30 AM EST Office Visit Hematology/Oncology at [address] [phone] Yessi Renee APRN [address] [place] [address] DR HEMATOLOGY [place] [address] 03/26/2024 9:30 AM EST Infusion Hematology Oncology at [address] [phone] 04/09/2024 9:30 AM EST Office Visit Hematology/Oncology at [address] [phone] Cl Hess MD [facility] [place] [address] [address] HEMATOLOGY AND ONCOLOGY [place], [place] [phone] 04/09/2024 10:00 AM EST Infusion Hematology Oncology at [address] [phone] 04/23/2024 9:30 AM EST Office Visit Hematology/Oncology at [address] [phone] Cl Hess MD [facility] [place] [address] [address] HEMATOLOGY [place] [address] 04/23/2024 10:00 AM EST Infusion Hematology Oncology at [address] [phone] 05/18/2024 4:30 PM EDT TH Visit (TeleHealth) [place] [address] Malachi Rothman MD [facility] [place] [address] documented as of this encounter Visit Diagnoses Not on filedocumented in this encounter Care Teams Bet Taker Relationship Specialty Start Date End Date Tristen Hunter MD [address] [place] [address] [place] [address] PCP - General Family Medicine 07/04/23 documented as of this encounter
--- OUTSIDE RECORDS SUMMARY | 2024-03-12 10:51 | XMS_ITS | Encounter Summary ---
[place] [address] Care Team Providers Care Grocery Buyer Name Role Phone Tristen Hunter MD Primary Care Provider [phone] Reason for Visit * Auth/Cert (Routine) Specialty Diagnoses / Procedures Referred By Contac t Referred To Contact Diagnoses PANCREAS CANCER Procedures PRO PART REMV PANC, PROX+REMV DUOD+ANAST @WHIPPLE PROCEDURE (WRVU 52.84) Tor Balbuena MD [facility] [place] [address] [facility] Referral ID Status Reason Start Date Expiration Date Visits Re quested Visits Authorized [id number] 1 1 Encounter Details Date Type Department Care Team (Late st Contact Info) Description 01/23/2024 7:30 AM EST - 01/23/2024 4:55 PM EST Surgery [place] [id number] Tor Balbuena MD [facility] [place] [place] [address] @KAI PROCEDURE (WRVU 83.94) Social History Tobacco Use Types Packs/Day Years Used Date Smoking Tobacco: Former Cigarettes 4 1992 Smokeless Tobacco: Never Alcohol Use Standard [...] in a detention (including now)? No 06/04/2023 Housing Stability Vital [...] were you homeless or living in a detention (including now)? No 01/24/2024 DH IPV Inpatient [...] Sign Reading Time Taken Comments Blood Pressure 120/61 01/23/2024 4:54 PM EST Pulse 72 01/23/2024 4:54 PM EST Temperature 37.2 ??C (99 ??F) 01/23/2024 4:54 PM EST Respiratory Rate 22 01/23/2024 4:54 PM EST Oxygen Saturation 100% 01/23/2024 4:54 PM EST Inhaled Oxygen Concentration - - Weight 95.3 kg (210 lb) 01/23/2024 6:26 AM EST Height 175.3 cm (5' 9) 01/23/2024 [...] bovine pericardial patch pledgets and internalized 5 Ugandan pancreatic duct stent. The bile duct was quite dilated measuring about 15 mm in an end to side hepaticojejunostomy anastomosis was created. Finally in order to restore intestinal continuity a defect was created in the transverse mesocolon to the left of the middle colic vessels to allow the jejunum to be brought up in his retromesenteric location into the supracolic abdomen where a vbfa-nj-hxwq, retrogastric Billroth II type gastrojejunostomy was created. The 19 Ugandan Kd drain was placed into Morison's pouch and then passed posterior to the bile duct anastomosis and then anterior to the pancreatic anastomosis. The omental pedicle flap created from the falciform ligament was used to cover the right gastric artery and GDA stumps. Hospital Course: Wero Sadler was admitted to [facility] on 01/23/2024 via the Same Day Program. [...] - Date/Time Tissue Culture, Aerobic & Anaerobic [[id number]] (Abnormal) Collected: 01/23/241053 Lab Status: Final result Specimen: Tissue from Bile Duct Updated: 01/27/24 1501 Narrative: The following orders were created for panel order Tissue Culture, Aerobic & Anaerobic. Procedure Abnormality Status --------- ------ Tissue Culture, Aerobic ...[[id number]] Final result Anaerobic Culture[[id number]] Abnormal Final result Please view results for these tests on the individual orders. Anaerobic Culture [[id number]] (Abnormal) Collected: 01/23/241053 Lab Status: Final result Specimen: Tissue from Bile Duct Updated: 01/27/24 1501 Anaerobic Culture Rare Bacteroides fragilis group Tissue Culture, Aerobic Only [[id number]] Collected: 01/23/241053 Lab Status: Final result Specimen: [...] Home VNA: Yes HOME HEALTH CARE AGENCY: [facility] [address] [place] [id number] Discharge Conditions/Prognosis: Stable Discharge Medications: The following [...] 30 mg Quantity: 30 tablet Refills: 12 axcmck-kupnmwgw-ocurfaz DR 24,000-76,000 -120,[address] capsule Commonly known as: Creon 24 Take 3 per meal three times daily and 2 per snack three times daily (15 capsules/day) Quantity: 450 capsule Refills: 11 lisinopriL 40 mg tablet Commonly known as: Zestril Take 1 tablet by mouth daily. Lisinopril (hold for SBP <130) 40 mg Refills: 0 omega 8-rbw-yoe-fish oil 250-350-1,000 mg Capsule Take 1,000 mg [...] procedure at [facility] in [place]: shaking Has tolerated MRI and CT contrast. Pazopanib Other (See Comments) UGT1A1 Poor Metabolizer. See Clinical Pharmacist Note from 07/04/23 for information. Sacituzumab Govitecan-Hziy Other (See Comments) UGT1A1 Poor Metabolizer. See Clinical Pharmacist Note from 07/04/23 for dosing recommendations. Scheduled Appointments: Future Appointments Date Time Provider Department Center 02/07/2024 12:30 PM NURSE, GENERAL SURGERY [facility] SURG [facility] 02/18/2024 12:15 PM LAB, THREE L Lab 3L ISATU SILVERCHLOE 02/18/2024 1:00 PM Tor Balbuena MD [facility] 02/18/2024 2:[address] [facility] SURG [facility] 02/20/2024 10:00 AM Cl Hess MD [facility] 03/24/2024 9:00 AM Ping Moore PA [facility] 05/18/2024 4:30 PM Malachi Rothman MD [facility] RAD OFF [facility] Outpatient Services/Studies: CBC (with Diff) Standing Status: [...] the nurses in the Surgery Clinic at [phone]. - During the night time hours call the hospital scalper operator [phone] and ask to speak to the general surgery resident fire protection engineer. Instructions for when you are home: Diet: Ok to eat a carb control diet as tolerated. It is important to try to eat as much calories and protein as possible during recovery to aid in healing. You frequently may feel full easily or evenhave nausea. Take small meals at first and pace yourself. You may supplement your diet with nutritional shakes/drinks (Ensure, [place] Instant Breakfast, Boost) if possible. Remember to [...] Incision: The skin incision(s) is closed with [place] Usually the jay are removed anywhere from7-14 [...] has been scheduled with Dr. Balbuena's office [phone]. In most cases Dr. Balbuena will order blood work to be done on the day of your post op clinic appointment. This decision is made on a upwp-cm-dwdg basis so ask if this is necessary and plan to come to [facility] pr ior to the appointment to get the blood work done in 3L as instructed. - Of course, if you are being discharged on a weekend and Dr. Balbuena's office is closed then call the office [phone] first thing Saturday. Future Appointments Date Time Provider Department Center 02/07/2024 12:30 PM NURSE, GENERAL SURGERY [facility] SURG [facility] 02/18/2024 12:15 PM LAB, THREE L Lab 3L ISATU RITCHIE 02/18/2024 1:00 PM Tor Balbuena MD [facility] SURG [facility] 02/18/2024 2:[address] [facility] SURG [facility] 02/20/2024 10:00 AM Cl Hess MD [facility] [place] [facility] 03/24/2024 9:00 AM Ping Moore PA [facility] [place] [facility] 05/18/2024 4:30 PM Malachi Rothman MD [facility] RAD OFF [facility] A telephone follow-up visit has been requested with our outpatient business management manager Radha Sweet RD whowill call you to [...] speak with the surgery nurses.The number is [phone]. - During the night call the [facility] scalper operator and ask to speak to the surgery resident fire protection engineer for general surgery. General Instructions Diabetes Discharge [...] 2 tablespoons of dried fruit. Milk and gs-fcrnw-oykfd yogurt have 15 grams of carbs in a serving. A serving is 1 cup of milk or 3/4 cup (6 oz) of sp-gbsfl-ykbfa yogurt. Starchy vegetables have 15 grams of carbs in a serving. A serving is ?? cup of mashed potatoes or sweet potato; 1 cup winter squash; ?? of a small baked potato; ?? cup of cooked beans; or ?? cup cooked corn or green peas. Learn how much carbs to eat each day and at each meal. A dietitian or board certified orthodontist can teach you how to keep track [...] PM NURSE, GENERAL SURGERY General Surgery at [facility] Arrive at: [facility] [phone] 02/18/2024 12:15 PM LAB, THREE L Lab [address] [place] [address] Arrive at: [facility] [phone] 02/18/2024 1:00 PM Tor Balbuena MD General Surgery at [facility] Arrive at: [facility] [phone] 02/18/2024 2:[address] General Surgery at [facility] Arrive at: [facility] [phone] 02/20/2024 10:00 AM Yessi Renee, PEWTER CASTER; Cl Hess MD Hematology/Oncology at [facility] Arrive at: [facility] door at end of hallway [phone] 03/24/2024 9:00 AM Ping Moore PA Radiation Oncology at [facility] Arrive at: Home [phone] Please do not come in for this visit. Your provider will call you at the number you provided. 05/18/2024 4:30 PM Malachi Rothman MD Radiation Oncology at [facility] Arrive at: Home [phone] Please do not come in for this visit. Your provider will call you at the number you provided. Future Orders Complete By Expires CBC (with Diff) [GSM455 Custom] 03/01/2024 01/30/2025 Process Instructions: INCLUDES: WBC, RBC, Hgb, Hct, Platelets, RBC Indices and Differential Scheduling Instructions: Comments: Questions: Comprehensive metabolic panel Non-fasting [LAB17 Custom] 03/01/2024 (Approximate) 01/30/2025 Process Instructions: INCLUDES: Calcium, T Protein, Albumin, AST, ALT, Alk Phos, T Bili, BUN, Creat, GFR, Glucose, Lytes. Scheduling Instructions: Comments: Questions: Fasting required?: Non-fasting Magnesium [YKE715 Custom] 03/01/2024 01/30/2025 Process Instructions: Scheduling Instructions: Comments: Questions: Phosphorus [AGO803 Custom] 03/01/2024 01/30/2025 Process Instructions: Scheduling Instructions: Comments: Questions: Prealbumin [COG264 Custom] 03/01/2024 01/30/2025 Process Instructions: Scheduling Instructions: Comments: Questions: [facility] Devices [EQ161 Custom] As directed Process Instructions: Scheduling Instructions: Comments: Wero Mabert [facility] [phone] Telephone Information: Diagnosis: deconditioning with Unsteady gait Significant weakness, ataxia or gait abnormality Patient's: Hgt: Ht Readings from Last 1 Encounters: 01/23/24 : 175.3 cm (5' 9) Wgt: Wt Readings from Last 1 Encounters: 01/31/24 : 87.5 kg (193 lb) VENDOR: [facility] Ordering: Front wheel walker Deliver to 's hospital room #: 425-A Questions: Device Needed: WALKER (E0143) Patient Height (cm): 175.3 cm (5' 9) Patient Weight: 87.5 kg (193 lb) Diagnosis: Pancreatic adenocarcinoma Discharge References/Attachments: Discharge References/Attachments None Follow-up Recommendations for Providers: Medication changes:Augmentin for 2 days, continue pancreatic Enzymes/daily PPI CC: Tristen Hunter MD [phone] Signed: Tamia Rodriguez MD [facility] Service Team Pager #[phone] 02/01/2024 7:30 AM For questions regarding this document or issues relating to this hospitalization on the [facility] Surgery Service, please contact Tor Balbuena MD's office at [phone] documented in this encounter Discharge Instructions * Discharge Instructions* Dena Dinh, PEWTER CASTER - 01/31/2024 1:52 PM EST Diabetes Discharge [...] 2 tablespoons of dried fruit. Milk and fd-ayspd-evirj yogurt have 15 grams of carbs in a serving. A serving is 1 cup of milk or 3/4 cup (6 oz) of gl-svduy-matxq yogurt. Starchy vegetables have 15 grams of carbs in a serving. A serving is ?? cup of mashed potatoes or sweet potato; 1 cup winter squash; ?? of a small baked potato; ?? cup of cooked beans; or ?? cup cooked corn or green peas. Learn how much carbs to eat each day and at each meal. A dietitian or board certified orthodontist can teach you how to keep track [...] nurses in the 4 Surgery Clinic at [phone]. - During the night time hours call the hospital scalper operator [phone] and ask to speak to the general surgery resident fire protection engineer. Instructions for when you are home: Diet: Ok to eat a carb control diet as tolerated. It is important to try to eat as much calories and protein as possible during recovery to aid in healing. You frequently may feel full easily or evenhave nausea. Take small meals at first and pace yourself. You may supplement your diet with nutritional shakes/drinks (Ensure, [place] Instant Breakfast, Boost) if possible. Remember to [...] Incision: The skin incision(s) is closed with [place] Usually the jay are removed anywhere from7-14 [...] has been scheduled with Dr. Balbuena's office [phone]. In most cases Dr. Balbuena will order blood work to be done on the day of your post op clinic appointment. This decision is made on a bxfw-jv-kijv basis so ask if this is necessary and plan to come to [facility] pr ior to the appointment to get the blood work done in 3L as instructed. - Of course, if you are being discharged on a weekend and Dr. Balbuena's office is closed then call the office [phone] first thing Saturday. Future Appointments Date Time Provider Department Center 02/07/2024 12:30 PM NURSE, GENERAL SURGERY [facility] SURG [facility] 02/18/2024 12:15 PM LAB, THREE L Lab 3L ISATU SILVERGA 02/18/2024 1:00 PM Tor Balbuena MD [facility] SURG [facility] 02/18/2024 2:[address] [facility] 02/20/2024 10:00 AM Cl Hess MD [facility] 03/24/2024 9:00 AM Ping Moore PA [facility] 05/18/2024 4:30 PM Malachi Rothman MD [facility] RAD OFF [facility] A telephone follow-up visit has been requested with our outpatient business management manager Radha Sweet RD whowill call you to [...] speak with the surgery nurses.The number is [phone]. - During the night call the [facility] scalper operator and ask to speak to the surgery resident fire protection engineer for general surgery. documented in this encounter Medications at Time of Discharge Medication Sig Dispensed Refills Start Date End Date joadtv-ezibbiya-hzs lase DR (Creon 24) 24,000-76,000 -120,000 unit [...] 20 mg by mouth daily. 05/20/2023 omega 3-geb-kok-fish oil 250-350-1,000 mg Capsule Take 1,000 mg [...] treatment team, confirmed ride with [facility] for bean picker at the main entrance at noon today. Abby Melgoza PhD, AREA REPRESENTATIVE Pager [phone] * Dena Dinh APRN - 01/31/2024 8:15 [...] juice or regular (not diet) soda 6 Izzy Money small box of raisins 4 glucose tablets [...] 2 tablespoons of dried fruit. Milk and qg-vdgay-ghxsn yogurt have 15 grams of carbs in a serving. A serving is 1 cup of milk or 3/4 cup (6 oz) of gw-hclzx-jwwhk yogurt. Starchy vegetables have 15 grams of carbs in a serving. A serving is ?? cup of mashed potatoes or sweet potato; 1 cup winter squash; ?? of a small baked potato; ?? cup of cooked beans; or ?? cup cooked corn or green peas. Learn how much carbs to eat each day and at each meal. A dietitian or board certified orthodontist can teach you how to keep track [...] cheese, and peanut butter. Dena Dinh APRN [facility] Endocrinology Diabetes Management Pager [phone] Weekends please page [phone] 50 minutes were spent over the course [...] ; Age: 11 1950; 74 y.o. Room/Bed: 425/425-A Today's Date: 01/31/24 ID: Wero Sadler is [...] [facility] Surgery Service Team Pager #[phone] 01/31/24 8:07 AM * Earl Reina - 01/30/2024 2:21 PM EST Mule Operator Encounter Note Patient Name: Wero Sadler : [id number] MR#: [id number] Admit Date: 01/23/2024 6:12 AM Hospital Day 7 days Narrative:Visited to introduce and assess acceptance of Mule Operator services. Assessment: Patient was awake, alert, oriented and in bed. Patient coping positively with stresses of illness/hospitalization at this time. Patient says that he is hoping to get better and seems to be thankful and taking one day at time. Intervention and Outcome:Provided emotional, spiritual support and listening presence. Mule Operator services accepted. Conversation to build trusting relationship. Provided pastoral presence. Provided spiritual guidance. Follow-up: yes Time in Direct Care:08 Mins Earl Reina 01/30/2024 * Nimisha Mahoney, PT - 01/30/2024 9:54 AM EST Physical Therapy Note Treatment Number PT: (P) 4 Patient profile: Per MD note: Wero Sadler is a 74 y.o. male with PMH of colon cancer (), prostate cancer (s/p androgen deprivation and RT), [...] (per initial PT evaluation) lives alone in [place], [place]; has friends that grocery shop for him and prepare meals; also receives [employer]; uses [facility] for transportation as needed; patient [...] (P) 19 Billing Code: (P) TE-Fx1 Nimisha Mahoney, PT/DPT, CNT Pager: [phone] Physical Therapy Inpatient Rehabilitation Department * Wilton Moore MD - 01/30/2024 7:35 AM EST [facility] Surgery Inpatient Progress Note Patient Name: Wero Sadler ; Age: 11 1950; 74 y.o. Room/Bed: [address] [place] [address] Today's Date: 01/30/24 ID: Wero Sadler is [...] [facility] Surgery Service Team Pager #[phone] 01/30/24 7:35 AM * Samra Moss, PT - 01/29/2024 12:10 PM EST Physical Therapy Note Treatment Number PT: 3 Patient profile: Per MD note: Wero Sadler is a 74 y.o. male with PMH of colon cancer ([id number]), prostate cancer (s/p androgen deprivation and RT), [...] (per initial PT evaluation) lives alone in [place], [place]; has friends that grocery shop for him and prepare meals; also receives [employer]; uses [facility] for transportation as needed; patient [...] Moss PT, Doctor of Physical Therapy Pager: [phone] Physical Therapy Inpatient Rehabilitation Department * Heavenly [...] sign off at this time. Please page [phone] with any epidural-related questions or concerns. NACHO Jonas RN, have performed the documentation for this encounter in the presence of andacting as a scribe for Dr. Adam Muñoz. Anesthesia Staff Patient seen and examined on daily rounds. I agree with the above assessment and plan Adam Muñoz MD [id number] APMS Nurse: Nacho Oreilly RN Attending Physician:: Adam Muñoz MD * Wilton Moore MD - 01/29/2024 6:39 AM EST [facility] Surgery Inpatient Progress Note Patient Name: Wero Sadler ; Age: 11 1950; 74 y.o. Room/Bed: 425/425-A Today's Date: 01/29/24 ID: Wero Sadler is [...] QHS, SCDs #Tubes/lines/drains NGT to LCWS, d/c eduar, due to void #Home Medications Carvedilol 25mg daily Flomax 0.4mg daily HOLD Creon until diet advanced Insulin per DM recs HOLD chlorthalidone, amlodipine, lisinopril HOLD aspirin 81mg Omeprazole -> IV PPI Dispo: Floor Code status: Attempt Cardiopulmonary Resuscitation - Inpatient Signed: Wilton Moore MD [facility] Surgery Service Team Pager #[phone] 01/29/24 8:39 AM * Nina Tipton RN [...] ; Age: 11 1950; 74 y.o. Room/Bed: [facility] Today's Date: 01/28/24 ID: Wero Sadler is [...] Skin: warm, dry Labs: Recent Labs 01/28/24 033 WBC 6.91 HGB 8.1* HCT 24.0* PLATELET 160 No results for input(s): INR in the last 72 hours. Recent Labs 01/28/24338 NA 137 K 3.2* CL 100 CO2 [...] [facility] Surgery Service Team Pager #[phone] 01/28/24 9:34 AM Heavenly Cabello, ARNOLD - 01/28/2024 9:23 AM ESTSummary: He is [...] very pleasant and straightforward. TPN NOTES FROM NATHAN 01/27 Parenteral Nutrition Indications: Need to restrict [...] was able to discuss plan with provider CAAS Dominguez - Surg Onc 5015 . Objective Temp: [36.8 ??C (98.2 ??F)-37.9 [...] unit including nursing and primary team. * oTni, Adam Parker MD - 01/28/2024 9:20 AM EST Acute [...] of time it has been in. NACHO Jonas RN, have performed the documentation for this encounter in the presence of andacting as a scribe for Dr. Adam Muñoz. Acute Pain Medicine Attending I have seen and examined the patient on daily rounds. I agree with the above assessment and plan. Adam Muñoz MD [id number] [facility] Nurse: Nacho Oreilly RN Fellow:: Kolton Morejon [...] in place and infusing per order See HARESH HEATHER taken out via provider, Ambulated in adan [...] with hyaluronidase Social History: lives alone in [place], [place]; has friends that grocery shop for him and prepare meals; also receives [employer]; uses [employer] for transportation as needed; patient reports having [...] all needs in reach (paddle call mcdonnell, PRODUCTION SUPERVISOR, phone) following visit. Assessment: Wero Sadler was seen today for physical therapy treatment session for continuation of POC. Mauri demonstrated improvement in transfers and gait and was able to initiate stair management today, using a footstool next to his bed. He tolerated all activity well and did not need to use his PRODUCTION SUPERVISOR during this session. He remains with NGT to LCWS due to failed clamping trial. Anticipate he [...] mobility, gait, stairs ABBY CANNON, PT Pager: [phone] Physical Therapy Inpatient Rehabilitation Department * Heavenly Martinez APRN - 01/27/2024 10:21 AM EST .Follow Up Diabetes Consult Patient Interview Mr. Mabert to have TPN starting today. Last week [...] 1140 01/26/24 0820 01/26/24 0504 01/26/24 0024 01/25/24201801/25/24 1613 01/25/24 1142 POCGLU 149 155 162 [...] had ROBF, no gas or movements (LBM MINI LAB OPERATOR). The epidural insertion site is clean, and free from signs of infection. The dressing remains occlusive. Plan: there were no changes made to the epidural settings today; we will ideally give Wero more time to allow his bowels to become functional before removing the epidural. Zuleima Jonas RN, have performed the documentation for this encounter in the presence of and acting as a scribe for Dr. Manolo Gamboa. APPA Nurse: Zuleima Aguirre RN Fellow:: Kolton Morejon DO Attending Physician:: Derrick, Manolo R, MD I performed the above scribed service and agree with the accuracy of the note. Manolo Meza MD * Tor Balbuena MD - 01/27/2024 7:00 AM EST [facility] Surgery Inpatient Progress Note Patient Name: Wero Sadler ; Age: 11 1950; 74 y.o. Room/Bed: [facility] Today's Date: 01/27/24 ID: Wero Sadler is [...] [facility] Biliary Surgery Service Team Pager #[phone] 01/27/24 5:48 AM HPB surgery attending addendum [...] Surgery Inpatient Progress Note Patient Name: Wero PATEL; Age: 11 1950; 74 y.o. Room/Bed: [address] Today's Date: 01/26/24 ID: Wero Sadler [...] to suction. If less than 200cc, page [phone] to discuss NGT removal and advancement to [...] [facility] Surgery Service Team Pager #[phone] 01/26/24 8:12 AM * Nafisa Wu RN [...] off going RN. Special call light, and PRODUCTION SUPERVISOR button in place within reach. Fall precautions, [...] Surgery Inpatient Progress Note Patient Name: Wero PATEL; Age: 11 1950; 73 y.o. Room/Bed: [facility] Today's Date: 01/25/24 ID: Wero Sadler is [...] [facility] Biliary Surgery Service Team Pager #[phone] 01/25/24 8:08 AM * Abby Cannon, PT [...] Claudication Colon adenocarcinoma 2008 recieved chemo in [place] Coronary artery disease Coronary artery dissection CPAP [...] 0.3) performed by Tor Balbuena MD at [facility] OSC PRO ARTHROPLASTY ACETABULAR/PROX FEM PROSTC AGRFT/ALGRFT Left 10/10/2020 TOTAL HIP ARTHROPLASTY - POSTERIOR (WRVU 20.72) performed by Ismael Wu MD at [facility] MAIN OR PRO ARTHROPLASTY ACETABULAR/PROX FEM PROSTC AGRFT/ALGRFT Right 11/17/2021 TOTAL HIP ARTHROPLASTY - POSTERIOR (WRVU 20.72) performed by Ismael Wu MD at [facility] MAIN OR PRO ENDOSCOPIC US EXAM, ESOPH N/A 07/02/2023 UPPER EUS- ENDOSCOPIC ULTRASOUND (WRVU 3.47) performed by Pako Lopez MD at [facility] ENDOSCOPY PRO ERCP, W/REMOVAL STONE, TARYN/PANCR DUCTS 07/02/2023 ERCP W/REMOVAL CALCULI/DEBRIS FROM BILARY/PANCREATIC DUCT(S) (WRVU 6.63) performed by Pako Lopez MD at [facility] ENDOSCOPY PRO ERCP,DIAGNOSTIC N/A 07/02/2023 ERCP (WRVU 5.85) performed by Pako Lopez MD at [facility] ENDOSCOPY PRO EXPLORATION NOT FOLLOWED BY SURG NECK ARTERY Right 07/14/2021 @EXPLORATION NOT FOLLOWED BY SURGICAL REPAIR, ARTERY; NECK (CAROTID OR SUBCLAVIAN) (WRVU 9.19) performed by Basim Barr MD at [facility] MAIN OR PRO INSERT TUNNELED CV CATH W SUBQ PORT, AGE 5 YRS OR OLDER N/A 07/05/2023 MARIO\AMELIA.CATHETER,TUNNELED, WITH SQ PORT OR PUMP OVER 5YR (WRVU 5.79) performed by Maggi Balbuena MD at [facility] OSC PRO LAP, DIAGNOSTIC ABDOMEN N/A 07/05/2023 LAPAROSCOPY, DIAGNOSTIC, ABDOMEN (WRVU 5.14) performed by Tor Balbuena MD at [facility] OSC PRO LASER VAPORIZATION SURGERY PROSTATE, COMPLETE Midline 02/02/2021 CYSTO, LASER TURP (WRVU 12.15) performed by Cayetano Engle MD at [facility] MA[facility] OR PRO PLACE TRANSCATHETER STENT, CCA W EMBOLIC PROECT Right 07/14/2021 @TRANSCATH INTRAVASCULAR STENT,CAROTID,PERC,W\EMBOLIC PROT. (WRVU 18) performed by Basim Barr MD at [facility] MAIN OR Active Non-Hospital Problems Diagnosis Malignant [...] blood pressurses Social History: lives alone in [place], [place]; has friends that grocery shop for him and prepare meals; also receives [employer]; uses [facility] for transportation as needed; patient [...] 35 minutes; evaluation ABBY CANNON, PT Pager: [phone] Physical Therapy Inpatient Rehabilitation Department * Haroon Presley PA - 01/24/2024 10:50 AM EST Hepato Pancreato Biliary Surgery Inpatient Progress Note Patient Name: Wero Sadler ; Age: 11 1950; 73 y.o. Room/Bed: [address] Today's Date: 01/24/24 ID: Wero Sadler is [...] LFTs downtrending, T bili 1.5 Serum amylase 16 / HEATHER amylase pending Intra-op bile fluid 01/22: No [...] Hepato Pancreato Biliary Surgery Service Team Pager #[phone] 01/24/24 10:51 AM * Manolo Meza MD [...] bed for the first time. I, NACHO OREILLY RN, have performed the documentation for this encounter in the presence of andacting as a scribe for Dr. Manolo Meza. [facility] Nurse: Nacho Oreilly RN Resident:: Jace Lyons [...] bpm] I/O last 3 completed shifts: In: 45919.3 [I.V.:9028.8; Blood:987; Other:1035.5] Out: 3759 [Urine:1304; Drains:205; [...] 65 - 199 mg/dL Type and screen ([facility]/CGP/NATO) Result Value Ref Range ABOR Type O POSITIVE PATIENT HISTORY Found Expires at 2359 on: 2024 ANTIBODY SCREEN AUTOMATED Negative T&S only valid at [facility] LAB ABORH RECHECK (PATIENT HISTORY FOUND) Result [...] Information Issued Product Identification RBC Unit Number [id number] Product Code [id number] Unit Blood Type OPOS Specimen Expiration Date [id number] Volulme 350 Issue Date / Time [id number] Status Information Issued Product Identification RBC Unit Number [id number] Product Code [id number] Unit Blood Type OPOS Specimen Expiration Date [id number] Volulme 350 Issue Date / Time [id number] Blood Gas, Arterial POC Result Value Ref [...] Information Issued Product Identification RBC Unit Number [id number] Product Code [id number] Unit Blood Type OPOS Specimen Expiration Date Volulme 287 Issue Date / Time Status Information Returned Product Identification RBC Unit Number [id number] Product Code [id number] Unit Blood Type OPOS Specimen Expiration Date [id number] Volulme 350 Issue Date / Time POC, [...] of pancreatic head adenocarcinoma who presents to [facility] for whipple S: Wero Sadler endorses no [...] Uday Gomes MD 01/23/2024 General Surgery p. 3578 B surgery attending addendum I saw Wero this [...] Contact information for follow-up Vna & Hospice, [facility] [address] Transportation: health plan transportation *RCT Functional status prior to admission: Independent Home Environment: Others in the home: alone. Current Living Arrangements: home/apartment/condo. Accessibility Concerns:1 CLARIBEL. 2 levels. can stay on 1 if need to. Current Functional Ability: DME used at home: none DME Needed at Discharge: FWW- delivered by [employer] Patient is insured through: Primary Insurance: MEDICARE [...] DO & walker brought to patient by [employer] Discharge instructions gone over with patient - [...] Implemented as Appropriate) * Care Management - LamineGabriela vargas Shante - 01/31/2024 3:22 PM ESTSummary: dc ride tentatively set for Saturday at 12 noon w. [facility] CALL TO CONFIRM FOR Saturday -- 02 01 24 ; Team - Discharge ride is good for tomorrow ( Sat 02 01 24) at 12 noon from the Main Entrance- Portia be bulk driver for [facility] thru [place]icaid [place]. PLEASE call for 8 am tomorrow to confirm patient is still a go for dc and ride is needed, No ride will come if not confirmed. Pt going to [address] [place] [address] Rd in [facility]. Ride set w. Altagracia Forbes @ [facility] [...] Nurse, Physical Therapy, Occupational Therapy Agency Referrals: [facility] [address] [place] [address] Transportation: health plan transportation *RCT Barriers to discharge: Global: Denies needs/concerns at this time Plan: Patient is not medically ready related to: RBC transfusion for low Hgb. Plan going forward is: plan to discharge home tomorrow, patient will need [facility] ride set up. Anticipated Date of Discharge: 02/01/2024 Patricia Ramirez, RN, MSN, [facility] Surgery Nurse Labor Arbitrator Hearing Office [phone] , Pager [phone] * Consult Note - Jeane Rooney, RD - 01/31/2024 8:44 AM EST Images from the original note were not included. Nutrition Progress Note Wero Sadler is a 74 y.o. male admitted with H of colon cancer (resected 2008), prostate cancer [...] 01/28/2024 1800 01/27/2024 1800 Adult TPN (Custom) [[id number]] Adult TPN (Custom) [[id number]] Adult TPN (Custom) [[id number]] Order Status Discontinued Completed Completed Last Admin New Bag at 01/30/20241803 by Bruno Frey RN Rate/Dose Verify at [...] 01/29/241922 Right lower flank other (see comments) 11/27/24 1923 -- 2 Oxygen Therapy / Airway Device: [...] of this encounter: 87.5 kg (193 lb). [place] Body Weight (IBW) (kg): 72.73 Wt Readings [...] Elevated BG overnight - increasing insulin in robertight's PN for 1:3 insulin to carb ratio [...] He enjoys foods such as breakfast sandwiches (hong konger muffin, sausage, egg, cheese, butter) and items [...] maxillary line): Not assessed Lean Muscle Loss Mandaeism region (temporalis muscle): None present Clavicle bone [...] 01/28/2024 1800 01/27/2024 1800 Adult TPN (Custom) [[id number]] Adult TPN (Custom) [[id number]] Adult TPN (Custom) [[id number]] Order Status Active Last Dose in Progress [...] time Site Days Naso/Oral Tube 01/23/24 1545 Yolyn sump left nostril 01/23/24 1545 left nostril [...] of this encounter: 95.3 kg (210 lb). [place] Body Weight (IBW) (kg): 72.73 Wt Readings [...] He enjoys foods such as breakfast sandwiches (hong konger muffin, sausage, egg, cheese, butter) and items [...] maxillary line): Not assessed Lean Muscle Loss Mandaeism region (temporalis muscle): None present Clavicle bone [...] as Appropriate) * Initial Assessments - Savannah Garrett OT - 01/28/2024 11:40 AM EST Occupational [...] Claudication Colon adenocarcinoma 2008 recieved chemo in [place] Coronary artery disease Coronary artery dissection CPAP [...] 0.3) performed by Tor Balbuena MD at [facility] OSC PRO ARTHROPLASTY ACETABULAR/PROX FEM PROSTC AGRFT/ALGRFT Left 10/10/2020 TOTAL HIP ARTHROPLASTY - POSTERIOR (WRVU 20.72) performed by Ismael Wu MD at [facility] MAIN OR PRO ARTHROPLASTY ACETABULAR/PROX FEM PROSTC AGRFT/ALGRFT Right 11/17/2021 TOTAL HIP ARTHROPLASTY - POSTERIOR (WRVU 20.72) performed by Ismael Wu MD at [facility] MAIN OR PRO ENDOSCOPIC US EXAM, ESOPH N/A 07/02/2023 UPPER EUS- ENDOSCOPIC ULTRASOUND (WRVU 3.47) performed by Pako Lopez MD at [facility] ENDOSCOPY PRO ERCP, W/REMOVAL STONE, TARYN/PANCR DUCTS 07/02/2023 ERCP W/REMOVAL CALCULI/DEBRIS FROM BILARY/PANCREATIC DUCT(S) (WRVU 6.63) performed by Pako Lopez MD at [facility] ENDOSCOPY PRO ERCP,DIAGNOSTIC N/A 07/02/2023 ERCP (WRVU 5.85) performed by Pako Lopez MD at [facility]COPY PRO EXPLORATION NOT FOLLOWED BY SURG NECK ARTERY Right 07/14/2021 @EXPLORATION NOT FOLLOWED BY SURGICAL REPAIR, ARTERY; NECK (CAROTID OR SUBCLAVIAN) (WRVU 9.19) performed by Basim Barr MD at [facility] MAIN OR PRO INSERT TUNNELED CV CATH W SUBQ PORT, AGE 5 YRS OR OLDER N/A 07/05/2023 MARIO\AMELIA.CATHETER,TUNNELED, WITH SQ PORT OR PUMP OVER 5YR (WRVU 5.79) performed by Maggi Balbuena MD at [facility] OSC PRO LAP, DIAGNOSTIC ABDOMEN N/A 07/05/2023 LAPAROSCOPY, DIAGNOSTIC, ABDOMEN (WRVU 5.14) performed by Tor Balbuena MD at [facility] PRO LASER VAPORIZATION SURGERY PROSTATE, COMPLETE Midline 02/02/2021 CYSTO, LASER TURP (WRVU 12.15) performed by Cayetano Engle MD at [facility] PRO OMENTAL FLAP, INTRA-ABDOMINAL 01/23/2024 @OMENTAL FLAP, INTRA-ABDOMINAL (WRVU 6.54) performed by Tor Balbuena MD at [facility] MAIN OR PRO PART REMV PANC, PROX+REMV DUOD+ANAST N/A 01/23/2024 @WHIPPLE PROCEDURE (WRVU 52.84) performed by Tor Balbuena MD at [facility] MAIN OR PRO PLACE TRANSCATHETER STENT, CCA W EMBOLIC PROECT Right 07/14/2021 @TRANSCATH INTRAVASCULAR STENT,CAROTID,PERC,W\EMBOLIC PROT. (WRVU 18) performed by Basim Barr MD at [facility] MAIN OR PRO UNLISTED PROCEDURE VASCULAR SURGERY 01/23/2024 PORTAL VEIN REPAIR (WRVU 13.24) performed by Tor Balbuena MD at [facility] MAIN OR Subjective: Pt received sitting EOB [...] abdmininal incision, abdominal precautions, legally blind. Krause, PRODUCTION SUPERVISOR, sips and chips, NGT to suction, Patient [...] 0750 -- 5 Naso/Oral Tube 01/23/24 1545 Yolyn sump left nostril 01/23/24 1545 left nostril [...] Sit to stand: CGA RW Ambulation: 20'x2 [facility] Hospital bed Transfer: SBA RW stand step [...] 2-3 times/wk Total Minutes, Occupational Therapy: 30 ([id number]) Planned OT interventions: Role of occupational therapy/rehabilitation, [...] treatment provided: None, initial evaluation only. Savannah Garrett OTR/L They/Them Occupational Therapy Rehabilitation Department Pager # [phone] * Consult Note - Casandra Briseno RD - 01/28/2024 11:16 AM EST Images from [...] 01/28/2024 1800 01/27/2024 1800 Adult TPN (Custom) [[id number]] Adult TPN (Custom) [[id number]] Order Status Active Last Dose in Progress [...] time Site Days Naso/Oral Tube 01/23/24 1545 Yolyn sump left nostril 01/23/24 1545 left nostril [...] of this encounter: 95.3 kg (210 lb). [place] Body Weight (IBW) (kg): 72.73 Wt Readings [...] He enjoys foods such as breakfast sandwiches (hong konger muffin, sausage, egg, cheese, butter) and items [...] maxillary line): Not assessed Lean Muscle Loss Mandaeism region (temporalis muscle): None present Clavicle bone [...] NOTE: OUTCOME SUMMARY: Resumed care of pt ~1845. Pt hypertensive and reporting chest pain, see [...] home health with to be determined (01/24/24 3081) Plan for discharge is: Home w/ Services Outpatient Agency/Support Group Needs: None Home Health Services: Registered Nurse, Physical Therapy, Occupational Therapy Agency Referrals: [facility] [address] [place] [address] Transportation: health plan transportation *RCT Barriers to discharge: Global: Denies needs/concerns at this time Plan: Patient is not medically ready related to: s/p whipple. Failed NGT clamp trial yesterday, starting TPN, waiting for ROBF, monitor for HEATHER drain output. Plan going forward is: likely home with VNA when med ready. Anticipated Date of Discharge: 01/29/2024 Fabian Kang DISPATCHER MOTOR VEHICLE chief medical officer [phone] * Consult Note - Soniya Novoa RD - 01/27/2024 8:34 AM EST Images from the original note were not included. Nutrition Consult Note Wero Sadelr is a 74 y.o. male admitted with [...] and time 01/27/2024 1800 Adult TPN (Custom) [[id number]] Order Status Active Frequency Continuous (TPN) Medications [...] time Site Days Naso/Oral Tube 01/23/24 1545 Yolyn sump left nostril 01/23/24 1545 left nostril [...] of this encounter: 95.3 kg (210 lb). [place] Body Weight (IBW) (kg): 72.73 Wt Readings [...] He enjoys foods such as breakfast sandwiches (hong konger muffin, sausage, egg, cheese, butter) and items [...] maxillary line): Not assessed Lean Muscle Loss Mandaeism region (temporalis muscle): None present Clavicle bone [...] of MD contacted MD Moore 01/26 @ 5167 COMMISSIONED POLICE OFFICER CARING FOR THIS PATIENT WILL CONTINUE TO [...] Note Social Work Response to Consult Consult: Corrosion Control Specialist responded to consult regarding need for Advanced Directive Social Work Response: Corrosion Control Specialist visited patient while he was in the ISCU. Patient was friendly and welcoming. Patient also stated that was resting comfortably. Corrosion Control Specialist asked patient if he had an AD and explained the difference between that and personal representation; [facility] has MD documentation, but no AD on file. However, patient confirmed he has an AD, but did state it was his brother who was his POA. His daughter, Yessi Olivera ([phone]) is noted as being POA. It is uncertain if there are more than one healthcare POAs. Corrosion Control Specialist left with Yessi to confirm. Corrosion Control Specialist left his phone # with her. Follow Up Needed: EMAIL MARKETING PROCESSOR to follow up on POA status. MAXI Bello Underground Mine Machinery Mechanic, Rn Traveling Office of Care Management * Plan of [...] sugar remained high, insulin given as ordered-see MAR. L sudhakare NGT continues on LCWS, with light brown [...] Claudication Colon adenocarcinoma 2009 recieved chemo in [place] Coronary artery disease Coronary artery dissection CPAP (continuous positive airway pressure) dependence CPAP Diabetes treated with medication Diabetes mellitus 07/22/2019 Gastroesophageal reflux High blood pressure Hyperlipidemia Obstructive sleep apnea Status post chemotherapy 2009 colon cancer Stroke 11-24-19 Hospitalizations Within the Past 30 Days: no previous admission in last 30 days Current Decision-Making Capacity: Self Advance Care Planning: Attempt Cardiopulmonary Resuscitation - Inpatient <no information> -Advanced Directive: Yes, not on file Who is your DPOA-HC?: Child (Yessi Olivera [phone]) Current Coping/Education/Information Needs: coping well Current Functional [...] were you homeless or living in a detention (including now)?: No In the past 12 months has the electric, gas, oil, or water Intellicyt threatened to shut off services in your [...] Current DME: none Home Address confirmed as: [address] [place] [phone] Social & Family Supports: All names listed [...] Yes ; Prescription Coverage: Yes Preferred Pharmacy: [id number] - [facility] [address] AT [facility] [address] [phone] [place], [place] - [address] [facility] [address] [facility] [address] [facility] [address] [id number] - [address] [place] [address] [address] [facility] [phone] [facility] [address] [place] [address] 115 [facility] [address] [facility] [address] [facility] Home Delivery - [facility] [address] [facility] 1000 [facility] [address] Status: Patient is a : No Primary Care Provider confirmed: Tristen Hunter MD [phone] Patient/Caregiver Goals of Treatment: home with VNA Potential Needs for Transition of Care: home health care Agency Referrals: The patient has been provided a list of Home Health Agencies/DME vendors which serve their preferred geographic area. A letter describing our affiliations was reviewed with them and they were educated about their right to choose where referrals are placed. Provided patient with CMS Star Quality Rating handout. They have requested referrals to: [facility] [address] [place] [address] Expected date of discharge: 01/31/2024 Referral routed to the Rubbish Collector for matching with agency/vendor and to provide [...] coordination of care as indicated. Fabian Kang DISPATCHER MOTOR VEHICLE chief medical officer [phone] * Consult Note - Heavenly Martinez APRN [...] is: Breakfast- Cornbeef hash couple eggs Lunch- Strawn Supper- Meal on wheels. Typical exercise regimen [...] Claudication Colon adenocarcinoma 2009 recieved chemo in [place] Coronary artery disease Coronary artery dissection CPAP [...] procedure at [facility] in [place]: shaking Has tolerated MRI and CT contrast. [...] Martinez APRN Endocrinology Diabetes Management Service Pager: [phone] Weekends please page endocrine fire protection engineer 70 minutes of this 80 minute visit was spent in counseling on diabetes and treatment plan, reviewing all glucose and insulin data as well as relevant laboratory results with the patient and in the coordination of care on the inpatient unit. * Plan of Care - Jace Montano, RN - 01/24/2024 5:40 AM EST OUTCOME [...] output. Continuous maintenance fluids infusing as ordered-see MAR AM labs completed. Q4 blood glucoses completed. [...] Operative Note Patient Name: Wero Sadler : [id number] MR#: [id number] Case Date: 01/23/2024 Surgeon: Surgeons and Role: * Tor Balbuena MD - Primary * Uday Gomes MD - Resident - Assisting * Joe Espinosa MD - Assisting Attending Preoperative diagnosis: PANCREAS CANCER Postoperative diagnosis: PANCREAS CANCER Procedure(s) (LRB): @WHIPPLE PROCEDURE (WRVU 52.84) (N/A) PORTAL VEIN REPAIR (WRVU 13.24) @OMENTAL FLAP, INTRA-ABDOMINAL (WRVU 6.54) Modifiers: 80: Poker Prop Player surgeon Anesthesia: General Findings: - No evidence [...] : Blood Blood, Venous TYPE AND SCREEN ([facility]/P/NATO) Tor Balbuena MD 01/23/2024 0851 B : [...] Balbuena MD - 01/23/2024 8:41 AM EST [facility] Operative Note Patient Name: Wero Sadler : [id number] MR#: [id number] Case Date: 01/23/2024 Surgeon: Surgeons and Role: * Tor Balbuena MD - Primary * Uday Gomes MD - Resident - Assisting * Joe Espinosa MD - Assisting Attending Preoperative diagnosis: PANCREAS CANCER Postoperative diagnosis: PANCREAS CANCER Procedure(s) (LRB): @IPPLE PROCEDURE (WRVU 52.84) (N/A) PORTAL VEIN REPAIR (WRVU 13.24) @OMENTAL FLAP, INTRA-ABDOMINAL (WRVU 6.54) Modifiers: 80: Poker Prop Player surgeon Findings: No evidence for metastatic disease. [...] bovine pericardial patch pledgets and internalized 5 Ugandan pancreatic duct stent. The bile duct was quite dilated measuring about 15 mm in an end to side hepaticojejunostomy anastomosis was created. Finally in order to restore intestinal continuity a defect was created in the transverse mesocolon to the left of the middle colic vessels to allow the jejunum to be brought up in his retromesenteric location into the supracolic abdomen where a koea-ib-zfcd, retrogastric Billroth II type gastrojejunostomy was created. The 19 Ugandan Kd drain was placed into Morison's pouch [...] : Blood Blood, Venous TYPE AND SCREEN ([facility]/NATO) Tor Balbuena MD 01/23/2024 0851 B : [...] pursuant to and in compliance with the [facility] operative policies. His abdomen and lower chest [...] blade. There was pulsatile bleeding from the ikzgkxd-eq-xblp of the pancreas. Hemostasis was obtained with [...] the posterior outer layer. Next a pancreaticojejunostomy qkdi-aw-kkjoge anastomosis was created. A small enterotomy was [...] to placing the surgical drain. A 19 Ugandan Kd closed suction drain was placed through a separate stab incision in the right lateral abdomen and positioned to lie in the most dependent portion of the abdomen along the right colic gutter/Morison's pouch lateral to the liver and above gerotas fascia. The foregut reconstruction was a retrocolic xjid-mm-crhy, Billroth II type, gastrojejunostomy anastomosis. A defect was created in the transverse mesocolon to the left and middle colic vessels to allow the jejunum to be brought up as a loop to perform a retrogastric cseb-rm-uejq gastrojejunostomy anastomosis. This was accomplished with the Ethicon stapler (purple load). The common gastroenterotomy was closed in 2 layers with an inner layer of 3-0 PDS [place] stitches. The outer layer was interrupted 3-0 silk Lembert stitches. The anastomosis was found to be widely patent and viable appearing. The preserved pedicled omental flap/falciform ligament was then placed over the GDA and gastric artery stumps in the portal transection bed. The 19 Ugandan Kd drain was then passed beneath the [...] type gastrojejunostomy HEATHER drain placement location: 19 Ugandan Kd drain positioned in Morison's pouch, posterior [...] EST TH Visit (TeleHealth) Radiation Oncology at [address] [phone] Ping Moore PA [facility] [address] [place] [address] 03/26/2024 9:30 AM EST Office Visit Hematology/Oncology at [address] [phone] Yessi Renee, [address] HEMATOLOGY AND ONCOLOGY [place], [place] [address] 03/26/2024 9:30 AM EST Infusion Hematology Oncology at [address] [phone] 04/09/2024 9:30 AM EST Office Visit Hematology/Oncology at [address] [phone] Cl Hess MD [facility] [place] [address] [address] HEMATOLOGY AND ONCOLOGY [place], [place] [address] 04/09/2024 10:00 AM EST Infusion Hematology Oncology at [address] [phone] 04/23/2024 9:30 AM EST Office Visit Hematology/Oncology at [address] [phone] Cl Hess MD [facility] [place] [address] Yessi Renee APRN [address] [place] [address] DR HEMATOLOGY AND ONCOLOGY [place], [place] [address] 04/23/2024 10:00 AM EST Infusion Hematology Oncology at [address] [phone] 05/18/2024 4:30 PM EDT TH Visit (TeleHealth) [place] [address] Malachi Rothman MD [facility] [place] [address] Scheduled Orders Name Type Priority Associated Diagnoses [...] 01/31/2024 8:21 AM EST TYPE AND SCREEN ([facility]P/NATO) STAT 01/31/2024 8:21 AM EST POC, GLUCOSE [...] AM EST BLOOD GAS ARTERIAL POC Routine 6:59 [...] EST BLOOD GAS ARTERIAL POC Routine 4 10:43 AM EST POC, GLUCOSE Routine 01/23/2024 9:27 AM EST ABORH RECHECK (PATIENT HISTORY FOUND) Routine 01/23/2024 8:51 AM EST TYPE AND SCREEN ([facility]/CGP/NATO) Routine 01/23/2024 8:51 AM EST BLOOD GAS ARTERIAL POC Routine 8:28 AM EST Omental Flap, Intra-Abdominal (40713) 01/23/2024 7:52 AM EST PANCREAS CANCER Unlisted Procedure Vascular Surgery (03911) 01/23/2024 7:52 AM EST PANCREAS CANCER Part Remv Panc, Prox+Remv Duod+Anast ([id number]) 01/23/2024 7:52 AM EST PANCREAS CANCER XR [...] * POC, GLUCOSE (02/01/2024 8:02 AM EST) [facility] Signature Glucometer, POC 189 65 - 199 mg/dL 02/01/2024 8:02 AM EST [facility] Comment:Supplemental ranges: <140 mg/dL before meals <180 mg/dL all other times of the day. Blood CAPILLARY BLOOD / Unknown 02/01/2024 8:02 AM EST 02/01/2024 8:03 AM EST Tor Balbuena MD POINT OF CARE TEST ORDERABLES [facility] [place] [address] * POC, GLUCOSE (02/01/2024 4:18 AM EST) Glucometer, POC 149 65 - 199 mg/dL 02/01/2024 4:19 AM EST [facility] Comment:Supplemental ranges: <140 mg/dL before meals <180 mg/dL all other times of the day. Blood CAPILLARY BLOOD / Unknown 02/01/2024 4:18 AM EST 02/01/2024 4:19 AM EST Tor Balbuena MD POINT OF CARE TEST ORDERABLES Performing Organization Address [facility]/ZIP Co de Phone Number [place] [facility] [address] * Magnesium (02/01/2024 4:17 AM EST) Magnesium 0.98 0.69 - 1.07 mMol/L 02/01/2024 4:58 AM EST [facility] Blood VENOUS BLOOD SPECIMEN / Unknown Venipuncture / Unknown 02/01/2024 4:17 AM EST 02/01/2024 4:28 AM EST Tor Balbuena MD CHEMISTRY ORDERABL ES Performing Organization Address City/[facility] Co de Phone Number [facility] [place] [address] * Phosphorus (02/01/2024 4:17 AM EST) Phosphorus 3.8 2.5 - 4.5 mg/dL 02/01/2024 4:58 AM EST [facility] Blood VENOUS BLOOD SPECIMEN / Unknown Venipuncture / Unknown 02/01/2024 4:17 AM EST 02/01/2024 4:28 AM EST Tor Balbuena MD CHEMISTRY ORDERABL ES Performing Organization Address City/[facility]/ZIP Co de Phone Number [facility] [place] [address] * (ABNORMAL) Comprehensive metabolic panel (02/01/2024 4:17 AM EST) Glucose 151 65 - 199 mg/dL 02/01/2024 4:58 AM [facility] Comment:Glucose Concentratio n >=200 mg/dL plus symptoms is consistent with Diabetes Mellitus. Blood Urea Nitrogen 20 10 - 20 mg/dL 02/01/2024 4:58 AM [facility] Creatinine 0.71(L) 0.80 - 1.50 mg/dL 02/01/2024 4:58 AM [facility] Sodium 133(L) 135 - 145 mMol/L 02/01/2024 4:58 AM [facility] Potassium 4.3 3.5 - 5.0 mMol/L 02/01/2024 4:58 AM [facility] Chloride 98 98 - 107 mMol/L 02/01/2024 4:58 AM [facility] Carbon Dioxide 27 22 - 31 mMol/L 02/01/2024 4:58 AM [facility] Anion Gap 8 5 - 15 mMol/L 02/01/2024 4:58 AM [facility] Calcium 8.7 8.5 - 10.5 mg/dL 02/01/2024 4:58 AM [facility] Protein, Total 6.0(L) 6.1 - 8.0 g/dL 02/01/2024 4:58 AM [facility] Albumin 3.3 3.2 - 5.2 g/dL 02/01/2024 4:58 AM [facility] Aspartate Aminotransferase 28 <=39 unit/L 02/01/2024 4:58 AM [facility] Alanine Aminotransferase 39 0 - 55 unit/L 02/01/2024 4:58 AM [facility] Alkaline Phosphatase 151(H) 40 - 130 unit/L 02/01/2024 4:58 AM [facility] Bilirubin, Total 1.1 <=1.3 mg/dL 02/01/2024 4:58 AM [facility] Est Glomerular Filtration Rate - Male 95 mL/min/1. 73 m?? 02/01/2024 4:58 AM [facility] Comment: This patient's estimated GFR [...] EST Tor Balbuena MD CHEMISTRY ORDERABL ES [facility] [place] [phone] * (ABNORMAL) CBC (with Diff) (02/01/2024 4:17 AM EST) White Blood Cell 6.27 4.00 - 9.50 x10(3)/mc L 02/01/2024 4:35 AM [facility] Red Blood Cell 2.98(L) 4.58 - 5.54 x10(6)/mc L 02/01/2024 4:35 AM [facility] Hemoglobin 9.2(L) 13.7 - 16.5 g/dL 02/01/2024 4:35 AM [facility] Hematocrit 27.5(L) 40.5 - 48.5 % 02/01/2024 4:35 AM [facility] Mean Cell Volume 92.3 82.9 - 93.1 fL 02/01/2024 4:35 AM [facility] Mean Cell Hemoglobin 30.9 27.5 - 32.1 pg 02/01/2024 4:35 AM [facility] Mean Cell Hemoglobin Concentration 33.5 32.0 - 35.7 g/dL 02/01/2024 4:35 AM [facility] Platelet 289 145 - 357 x10(3)/mc L 02/01/2024 4:35 AM [facility] Mean Platelet Volume 8.8 7.6 - 12.9 fL 02/01/2024 4:35 AM [facility] RDW Standard Deviation 48.6(H) 36.0 - 45.0 fL 02/01/2024 4:35 AM [facility] RDW coefficient of variation 14.5(H) 11.4 - 13.8 % 02/01/2024 4:35 AM [facility] NRBC% auto 0.0 % 02/01/2024 4:35 AM [facility] NRBC Absolute <0.01 <0.01 x10(3)/mc L 02/01/2024 4:35 AM [facility] Neutrophil % 73.4 % 02/01/2024 4:35 AM [facility] Neutrophil Absolute (ANC) - Automated 4.61 1.70 - 6.10 x10(3)/mc L 02/01/2024 4:35 AM [facility] Lymph % 11.2 % 02/01/2024 4:35 AM [facility] Lymph Absolute 0.70(L) 0.90 - 3.20 x10(3)/mc L 02/01/2024 4:35 AM [facility] Monocyte % 9.1 % 02/01/2024 4:35 AM [facility] Monocyte Absolute 0.57 0.30 - 0.90 x10(3)/mc L 02/01/2024 4:35 AM [facility] Eos % 4.8 % 02/01/2024 4:35 AM [facility] Eos Absolute 0.30 0.00 - 0.40 x10(3)/mc L 02/01/2024 4:35 AM EST [facility] Basophil % 0.2 % 02/01/2024 4:35 AM [facility] Baso Absolute <0.04 0.00 - 0.10 x10(3)/mc L 02/01/2024 4:35 AM [facility] Immature Gran % 1.3 % 4:35 AM [facility] Immature Gran Absolute 0.08(H) 0.00 - 0.04 x10(3)/mc L 02/01/2024 4:35 AM [facility] Blood VENOUS BLOOD SPECIMEN / Unknown Venipuncture / Unknown 02/01/2024 4:17 AM EST 02/01/2024 4:29 AM EST Tor Balbuena MD HEMATOLOGY ORDERAB LES [facility] [place] [address] * POC, GLUCOSE (02/01/2024 12:12 AM EST) [facility] Signature Glucometer, POC 138 65 - 199 mg/dL 02/01/2024 12:13 AM EST [facility] Comment:Supplemental ranges: <140 mg/dL before meals <180 mg/dL all other times of the day. Blood CAPILLARY BLOOD / Unknown 02/01/2024 12:12 AM EST 02/01/2024 12:13 AM EST Tor Balbuena MD POINT OF CARE TEST ORDERABLES [facility] [place] [address] * Prepare RBC (01/31/2024 11:07 PM EST) Status Information Transfused [facility] Product Identification RBC [facility] Unit Number [id number] [facility] Product Code [id number] [facility] Unit Blood Type OPOS [facility] Specimen Expiration Date [facility] Volulme 286 [facility] Issue Date / Time [id number] [facility] Blood 01/31/2024 8:1 0 AM EST Tor Balbuena MD BLOOD BANK PRODUCT ORDERABLES Performing Organization Address City/[facility] Co de Phone Number [facility] [place] [address] * POC, GLUCOSE (01/31/2024 10:14 PM EST) Glucometer, POC 136 65 - 199 mg/dL 01/31/2024 10:15 PM EST [facility] Comment:Supplemental ranges: <140 mg/dL before meals <180 mg/dL all other times of the day. Blood CAPILLARY BLOOD / Unknown 01/31/2024 10:14 PM EST 01/31/2024 10:15 PM EST Tor Balbuena MD POINT OF CARE TEST ORDERABLES Performing Organization Address [facility] Co de Phone Number [facility] [place] [address] * (ABNORMAL) POC, GLUCOSE (01/31/2024 8:04 PM EST) Glucometer, POC 265(H) 65 - 199 mg/dL 01/31/2024 8:04 PM EST [facility] Comment:Supplemental ranges: <140 mg/dL before meals <180 mg/dL all other times of the day. Blood CAPILLARY BLOOD / Unknown 01/31/2024 8:04 PM EST 01/31/2024 8:04 PM EST Tor Balbuena MD POINT OF CARE TEST ORDERABLES Performing Organization Address City/[facility] Co de Phone Number [facility] [place] [address] * (ABNORMAL) POC, GLUCOSE (01/31/2024 4:00 PM EST) Glucometer, POC 269(H) 65 - 199 mg/dL 01/31/2024 4:00 PM EST [facility] Comment:Supplemental ranges: <140 mg/dL before meals <180 mg/dL all other times of the day. Blood CAPILLARY BLOOD / Unknown 01/31/2024 4:00 PM EST 01/31/2024 4:01 PM EST Tor Balbuena MD POINT OF CARE TEST ORDERABLES Performing Organization Address City/[facility]/ZIP Co de Phone Number [facility] [place] [address] * POC, GLUCOSE (01/31/2024 11:30 AM EST) Glucometer, POC 183 65 - 199 mg/dL 01/31/2024 11:30 AM EST [facility] Comment:Supplemental ranges: <140 mg/dL before meals <180 mg/dL all other times of the day. Blood CAPILLARY BLOOD / Unknown 01/31/2024 11:30 AM EST 01/31/2024 11:30 AM EST Tor Balbuena MD POINT OF CARE TEST ORDERABLES Performing Organization Address City/[facility]/ZIP Co de Phone Number [facility] [place] [address] * ABORH RECHECK (PATIENT HISTORY FOUND) (01/31/2024 8:21 AM EST) ABORH Recheck Progress Complete 01/31/2024 10:01 AM EST [facility] Blood VENOUS BLOOD SPECIMEN / Unknown Venipuncture / Unknown 01/31/2024 8:21 AM EST 01/31/2024 8:31 AM EST Tor Balbuena MD BLOOD BANK LAB ORD ERABLES [facility] [place] [address] * Type and screen ([facility]/CGP/NATO) (01/31/2024 8:21 AM EST) Pathologist [facility] [place] ABORH Type O POSITIVE 01/31/2024 9:20 AM EST [facility] PATIENT HISTORY Found 01/31/2024 9:20 AM EST [facility] Expires at [id number] on: 02-03-2024 01/31/2024 9:20 AM EST [facility] ANTIBODY SCREEN AUTOMATED Negative 01/31/2024 9:20 AM EST [facility] T&S only valid at [facility] 01/31/2024 9:20 AM EST [facility] Blood VENOUS BLOOD SPECIMEN / Unknown Venipuncture / Unknown 01/31/2024 8:21 AM EST 01/31/2024 8:31 AM EST Narrative [facility] - 01/31/2024 9:20 AM EST This Type and Screen result is only valid at the [facility] Tor Balbuena MD BLOOD BANK LAB ORD ERABLES [facility] [place] [address] * POC, GLUCOSE (01/31/2024 7:18 AM EST) [facility] Glucometer, POC 156 65 - 199 mg/dL 01/31/2024 7:19 AM EST [facility] Comment:Supplemental ranges: <140 mg/dL before meals <180 mg/dL all other times of the day. Blood CAPILLARY BLOOD / Unknown 01/31/2024 7:18 AM EST 01/31/2024 7:19 AM EST Tor Balbuena MD POINT OF CARE TEST ORDERABLES [facility] [place] [address] * Magnesium (01/31/2024 5:03 AM EST) [facility] Magnesium 1.01 0.69 - 1.07 mMol/L 01/31/2024 5:47 AM EST [facility] Blood VENOUS BLOOD SPECIMEN / Unknown Venipuncture / Unknown 01/31/2024 5:03 AM EST 01/31/2024 5:14 AM EST Tor Balbuena MD CHEMISTRY ORDERABL ES [facility] [place] [address] * (ABNORMAL) Phosphorus (01/31/2024 5:03 AM EST) Phosphorus 4.7(H) 2.5 - 4.5 mg/dL 01/31/2024 5:47 AM EST [facility] Blood VENOUS BLOOD SPECIMEN / Unknown Venipuncture / Unknown 01/31/2024 5:03 AM EST 01/31/2024 5:14 AM EST Tor Balbuena MD CHEMISTRY ORDERABL ES [facility] [place] [address] * (ABNORMAL) Comprehensive metabolic panel (01/31/2024 5:03 AM EST) Glucose 154 65 - 199 mg/dL 01/31/2024 5:47 AM EST [facility] Comment:Glucose Concentratio n >=200 mg/dL plus symptoms is consistent with Diabetes Mellitus. Blood Urea Nitrogen 20 10 - 20 mg/dL 01/31/2024 5:47 AM EST [facility] Creatinine 0.73(L) 0.80 - 1.50 mg/dL 01/31/2024 5:47 AM EST [facility] Sodium 136 135 - 145 mMol/L 01/31/2024 5:47 AM [facility] Potassium 4.0 3.5 - 5.0 mMol/L 01/31/2024 5:47 AM [facility] Chloride 99 98 - 107 mMol/L 01/31/2024 5:47 AM [facility] Carbon Dioxide 27 22 - 31 mMol/L 01/31/2024 5:47 AM [facility] Anion Gap 10 5 - 15 mMol/L 01/31/2024 5:47 AM [facility] Calcium 8.7 8.5 - 10.5 mg/dL 01/31/2024 5:47 AM [facility] Protein, Total 5.7(L) 6.1 - 8.0 g/dL 01/31/2024 5:47 AM [facility] Albumin 3.1(L) 3.2 - 5.2 g/dL 01/31/2024 5:47 AM [facility] Aspartate Aminotransferase 27 <=39 unit/L 01/31/2024 5:47 AM [facility] Alanine Aminotransferase 34 0 - 55 unit/L 01/31/2024 5:47 AM [facility] Alkaline Phosphatase 130 40 - 130 unit/L 01/31/2024 5:47 AM [facility] Bilirubin, Total 0.8 <=1.3 mg/dL 01/31/2024 5:47 AM [facility] Est Glomerular Filtration Rate - Male 94 mL/min/1. 73 m?? 01/31/2024 5:47 AM [facility] Comment: This patient's estimated GFR [...] EST Tor Balbuena MD CHEMISTRY ORDERABL ES [facility] [place] [address] * (ABNORMAL) CBC (with Diff) (01/31/2024 5:03 AM EST) White Blood Cell 5.92 4.00 - 9.50 x10(3)/mc L 01/31/2024 5:26 AM [facility] Red Blood Cell 2.54(L) 4.58 - 5.54 x10(6)/mc L 01/31/2024 5:26 AM [facility] Hemoglobin 7.6(L) 13.7 - 16.5 g/dL 01/31/2024 5:26 AM [facility] Hematocrit 23.3(L) 40.5 - 48.5 % 01/31/2024 5:26 AM [facility] Mean Cell Volume 91.7 82.9 - 93.1 fL 01/31/2024 5:26 AM [facility] Mean Cell Hemoglobin 29.9 27.5 - 32.1 pg 01/31/2024 5:26 AM [facility] Mean Cell Hemoglobin Concentration 32.6 32.0 - 35.7 g/dL 01/31/2024 5:26 AM [facility] Platelet 263 145 - 357 x10(3)/mc L 01/31/2024 5:26 AM [facility] Mean Platelet Volume 9.0 7.6 - 12.9 fL 01/31/2024 5:26 AM [facility] RDW Standard Deviation 47.4(H) 36.0 - 45.0 fL 01/31/2024 5:26 AM [facility] RDW coefficient of variation 14.3(H) 11.4 - 13.8 % 01/31/2024 5:26 AM [facility] NRBC% auto 0.0 % 01/31/2024 5:26 AM [facility] NRBC Absolute <0.01 <0.01 x10(3)/mc L 01/31/2024 5:26 AM [facility] Neutrophil % 74.2 % 01/31/2024 5:26 AM [facility] Neutrophil Absolute (ANC) - Automated 4.39 1.70 - 6.10 x10(3)/mc L 01/31/2024 5:26 AM [facility] Lymph % 11.0 % 01/31/2024 5:26 AM [facility] Lymph Absolute 0.65(L) 0.90 - 3.20 x10(3)/mc L 01/31/2024 5:26 AM [facility] Monocyte % 9.6 % 01/31/2024 5:26 AM [facility] Monocyte Absolute 0.57 0.30 - 0.90 x10(3)/mc L 01/31/2024 5:26 AM [facility] Eos % 3.0 % 01/31/2024 5:26 AM [facility] Eos Absolute 0.18 0.00 - 0.40 x10(3)/mc L 01/31/2024 5:26 AM [facility] Basophil % 0.3 % 01/31/2024 5:26 AM [facility] Baso Absolute <0.04 0.00 - 0.10 x10(3)/mc L 01/31/2024 5:26 AM [facility] Immature Gran % 1.9 % 5:26 AM [facility] Immature Gran Absolute 0.11(H) 0.00 - 0.04 x10(3)/mc L 01/31/2024 5:26 AM [facility] Blood VENOUS BLOOD SPECIMEN / Unknown Venipuncture / Unknown 01/31/2024 5:03 AM EST 01/31/2024 5:14 AM EST Tor Balbuena MD HEMATOLOGY ORDERAB LES Performing Organization Address [facility] Co de Phone Number [facility] [place] [address] * POC, GLUCOSE (01/31/2024 3:43 AM EST) Glucometer, POC 152 65 - 199 mg/dL 01/31/2024 3:44 AM EST [facility] Comment:Supplemental ranges: <140 mg/dL before meals <180 mg/dL all other times of the day. Blood CAPILLARY BLOOD / Unknown 01/31/2024 3:43 AM EST 01/31/2024 3:44 AM EST Tor Balbuena MD POINT OF CARE TEST ORDERABLES Performing Organization Address [facility] Co de Phone Number [facility] [place] [address] * POC, GLUCOSE (01/31/2024 12:38 AM EST) Glucometer, POC 135 65 - 199 mg/dL 01/31/2024 12:39 AM EST [facility] Comment:Supplemental ranges: <140 mg/dL before meals <180 mg/dL all other times of the day. Blood CAPILLARY BLOOD / Unknown 01/31/2024 12:38 AM EST 01/31/2024 12:39 AM EST Tor Balbuena MD POINT OF CARE TEST ORDERABLES Performing Organization Address [facility] Co de Phone Number [facility] [place] [address] * Scan Doc: Lab (01/31/2024 12:00 AM EST) Narrative 01/31/2024 12:00 AM EST Ordered by an unspecified provider. Scanning Provider MEDIA MGR SCAN EXT O RDR/RSLT * POC, GLUCOSE (01/30/2024 7:32 PM EST) Glucometer, POC 150 65 - 199 mg/dL 01/30/2024 7:32 PM EST [facility] Comment:Supplemental ranges: <140 mg/dL before meals <180 mg/dL all other times of the day. Blood CAPILLARY BLOOD / Unknown 01/30/2024 7:32 PM EST 01/30/2024 7:32 PM EST Tor Balbuena MD POINT OF CARE TEST ORDERABLES [facility] [place] [address] * POC, GLUCOSE (01/30/2024 4:49 PM EST) Glucometer, POC 181 65 - 199 mg/dL 01/30/2024 4:50 PM EST [facility] Comment:Supplemental ranges: <140 mg/dL before meals <180 mg/dL all other times of the day. Blood CAPILLARY BLOOD / Unknown 01/30/2024 4:49 PM EST 01/30/2024 4:50 PM EST Tor Balbuena MD POINT OF CARE TEST ORDERABLES Performing Organization Address City/[facility]/ZIP Co de Phone Number [facility] [place] [address] * (ABNORMAL) POC, GLUCOSE (01/30/2024 1:46 PM EST) Glucometer, POC 224(H) 65 - 199 mg/dL 01/30/2024 1:46 PM EST [facility] Comment:Supplemental ranges: <140 mg/dL before meals <180 mg/dL all other times of the day. Blood CAPILLARY BLOOD / Unknown 01/30/2024 1:46 PM EST 01/30/2024 1:46 PM EST Tor Balbuena MD POINT OF CARE TEST ORDERABLES [facility] [place] [address] * (ABNORMAL) POC, GLUCOSE (01/30/2024 11:20 AM EST) Glucometer, POC 256(H) 65 - 199 mg/dL 01/30/2024 11:20 AM EST [facility] Comment:Supplemental ranges: <140 mg/dL before meals <180 mg/dL all other times of the day. Blood CAPILLARY BLOOD / Unknown 01/30/2024 11:20 AM EST 01/30/2024 11:20 AM EST Tor Balbuena MD POINT OF CARE TEST ORDERABLES Performing Organization Address [facility] Co de Phone Number [facility] [place] [address] * (ABNORMAL) POC, GLUCOSE (01/30/2024 7:37 AM EST) Glucometer, POC 211(H) 65 - 199 mg/dL 01/30/2024 7:38 AM EST [facility] Comment:Supplemental ranges: <140 mg/dL before meals <180 mg/dL all other times of the day. Blood CAPILLARY BLOOD / Unknown 01/30/2024 7:37 AM EST 01/30/2024 7:38 AM EST Tor Balbuena MD POINT OF CARE TEST ORDERABLES Performing Organization Address [facility] Co de Phone Number [facility] [place] [address] * (ABNORMAL) POC, GLUCOSE (01/30/2024 3:49 AM EST) Glucometer, POC 203(H) 65 - 199 mg/dL 01/30/2024 3:50 AM EST [facility] Comment:Supplemental ranges: <140 mg/dL before meals <180 mg/dL all other times of the day. Blood CAPILLARY BLOOD / Unknown 01/30/2024 3:49 AM EST 01/30/2024 3:50 AM EST Tor Balbuena MD POINT OF CARE TEST ORDERABLES [facility] [place] [address] * Magnesium (01/30/2024 3:39 AM EST) Pathologist [facility] [place] Magnesium 0.95 0.69 - 1.07 mMol/L 01/30/2024 4:22 AM EST [facility] Blood VENOUS BLOOD SPECIMEN / Unknown Venipuncture / Unknown 01/30/2024 3:39 AM EST 01/30/2024 3:51 AM EST Tor Balbuena MD CHEMISTRY ORDERABL ES Performing Organization Address [facility]/ZIP Co de Phone Number [facility] [place] [address] * Phosphorus (01/30/2024 3:39 AM EST) Pathologist [facility] [place] Phosphorus 3.4 2.5 - 4.5 mg/dL 01/30/2024 4:22 AM EST [facility] Blood VENOUS BLOOD SPECIMEN / Unknown Venipuncture / Unknown 01/30/2024 3:39 AM EST 01/30/2024 3:51 AM EST Tor Balbuena MD CHEMISTRY ORDERABL ES Performing Organization Address [facility]/ZIP Co de Phone Number [facility] [place] [address] * (ABNORMAL) Comprehensive metabolic panel (01/30/2024 3:39 AM EST) Pathologist [facility] [place] Glucose 190 65 - 199 mg/dL 01/30/2024 4:22 AM EST [facility] Comment:Glucose Concentratio n >=200 mg/dL plus symptoms is consistent with Diabetes Mellitus. Blood Urea Nitrogen 15 10 - 20 mg/dL 01/30/2024 4:22 AM EST [facility] Creatinine 0.55(L) 0.80 - 1.50 mg/dL 01/30/2024 4:22 AM EST [facility] Sodium 136 135 - 145 mMol/L 01/30/2024 4:22 AM [facility] Potassium 3.8 3.5 - 5.0 mMol/L 01/30/2024 4:22 AM [facility] Chloride 98 98 - 107 mMol/L 01/30/2024 4:22 AM [facility] Carbon Dioxide 26 22 - 31 mMol/L 01/30/2024 4:22 AM [facility] Anion Gap 12 5 - 15 mMol/L 01/30/2024 4:22 AM [facility] Calcium 8.6 8.5 - 10.5 mg/dL 01/30/2024 4:22 AM [facility] Protein, Total 5.6(L) 6.1 - 8.0 g/dL 01/30/2024 4:22 AM [facility] Albumin 3.0(L) 3.2 - 5.2 g/dL 01/30/2024 4:22 AM [facility] Aspartate Aminotransferase 18 <=39 unit/L 01/30/2024 4:22 AM [facility] Alanine Aminotransferase 30 0 - 55 unit/L 01/30/2024 4:22 AM [facility] Alkaline Phosphatase 123 40 - 130 unit/L 01/30/2024 4:22 AM [facility] Bilirubin, Total 0.8 <=1.3 mg/dL 01/30/2024 4:22 AM [facility] Est Glomerular Filtration Rate - Male 103 mL/min/1. 73 m?? 01/30/2024 4:22 AM [facility] Comment: This patient's estimated GFR [...] EST Tor Balbuena MD CHEMISTRY ORDERABL ES [facility] [place] [address] * (ABNORMAL) CBC (with Diff) (01/30/2024 3:39 AM EST) White Blood Cell 7.34 4.00 - 9.50 x10(3)/mc L 01/30/2024 3:57 AM [facility] Red Blood Cell 2.62(L) 4.58 - 5.54 x10(6)/mc L 01/30/2024 3:57 AM [facility] Hemoglobin 8.1(L) 13.7 - 16.5 g/dL 01/30/2024 3:57 AM [facility] Hematocrit 24.3(L) 40.5 - 48.5 % 01/30/2024 3:57 AM [facility] Mean Cell Volume 92.7 82.9 - 93.1 fL 01/30/2024 3:57 AM [facility] Mean Cell Hemoglobin 30.9 27.5 - 32.1 pg 01/30/2024 3:57 AM [facility] Mean Cell Hemoglobin Concentration 33.3 32.0 - 35.7 g/dL 01/30/2024 3:57 AM [facility] Platelet 221 145 - 357 x10(3)/mc L 01/30/2024 3:57 AM [facility] Mean Platelet Volume 9.1 7.6 - 12.9 fL 01/30/2024 3:57 AM [facility] RDW Standard Deviation 48.7(H) 36.0 - 45.0 fL 01/30/2024 3:57 AM [facility] RDW coefficient of variation 14.5(H) 11.4 - 13.8 % 01/30/2024 3:57 AM [facility] NRBC% auto 0.0 % 01/30/2024 3:57 AM [facility] NRBC Absolute <0.01 <0.01 x10(3)/mc L 01/30/2024 3:57 AM [facility] Neutrophil % 80.2 % 01/30/2024 3:57 AM [facility] Neutrophil Absolute (ANC) - Automated 5.88 1.70 - 6.10 x10(3)/mc L 01/30/2024 3:57 AM [facility] Lymph % 8.7 % 01/30/2024 3:57 AM [facility] Lymph Absolute 0.64(L) 0.90 - 3.20 x10(3)/mc L 01/30/2024 3:57 AM [facility] Monocyte % 8.0 % 01/30/2024 3:57 AM [facility] Monocyte Absolute 0.59 0.30 - 0.90 x10(3)/mc L 01/30/2024 3:57 AM [facility] Eos % 1.6 % 01/30/2024 3:57 AM [facility] Eos Absolute 0.12 0.00 - 0.40 x10(3)/mc L 01/30/2024 3:57 AM [facility] Basophil % 0.1 % 01/30/2024 3:57 AM [facility] Baso Absolute <0.04 0.00 - 0.10 x10(3)/mc L 01/30/2024 3:57 AM [facility] Immature Gran % 1.4 % 3:57 AM [facility] Immature Gran Absolute 0.10(H) 0.00 - 0.04 x10(3)/mc L 01/30/2024 3:57 AM [facility] Blood VENOUS BLOOD SPECIMEN / Unknown Venipuncture / Unknown 01/30/2024 3:39 AM EST 01/30/2024 3:51 AM EST Tor Balbuena MD HEMATOLOGY ORDERAB LES Performing Organization Address City/[facility]/ZIP Co de Phone Number [facility] [place] [address] * POC, GLUCOSE (01/29/2024 11:22 PM EST) Glucometer, POC 159 65 - 199 mg/dL 01/29/2024 11:22 PM EST [facility] Comment:Supplemental ranges: <140 mg/dL before meals <180 mg/dL all other times of the day. Blood CAPILLARY BLOOD / Unknown 01/29/2024 11:22 PM EST 01/29/2024 11:22 PM EST Tor Balbuena MD POINT OF CARE TEST ORDERABLES Performing Organization Address [facility] Co de Phone Number [facility] [place] [address] * POC, GLUCOSE (01/29/2024 7:41 PM EST) Glucometer, POC 184 65 - 199 mg/dL 01/29/2024 7:41 PM EST [facility] Comment:Supplemental ranges: <140 mg/dL before meals <180 mg/dL all other times of the day. Blood CAPILLARY BLOOD / Unknown 01/29/2024 7:41 PM EST 01/29/2024 7:41 PM EST Tor Balbuena MD POINT OF CARE TEST ORDERABLES Performing Organization Address City/[facility]/ZIP Co de Phone Number [facility] [place] [address] * POC, GLUCOSE (01/29/2024 3:55 PM EST) Glucometer, POC 194 65 - 199 mg/dL 01/29/2024 3:55 PM EST [facility] Comment:Supplemental ranges: <140 mg/dL before meals <180 mg/dL all other times of the day. Blood CAPILLARY BLOOD / Unknown 01/29/2024 3:55 PM EST 01/29/2024 3:55 PM EST Tor Balbuena MD POINT OF CARE TEST ORDERABLES [facility] [place] [address] * POC, GLUCOSE (01/29/2024 12:01 PM EST) Glucometer, POC 181 65 - 199 mg/dL 01/29/2024 12:01 PM EST [facility] Comment:Supplemental ranges: <140 mg/dL before meals <180 mg/dL all other times of the day. Blood CAPILLARY BLOOD / Unknown 01/29/2024 12:01 PM EST 01/29/2024 12:01 PM EST Tor Balbuena MD POINT OF CARE TEST ORDERABLES Performing Organization Address City/[facility]/ZIP Co de Phone Number [facility] [place] [address] * (ABNORMAL) POC, GLUCOSE (01/29/2024 7:59 AM EST) Glucometer, POC 206(H) 65 - 199 mg/dL 01/29/2024 8:00 AM EST [facility] Comment:Supplemental ranges: <140 mg/dL before meals <180 mg/dL all other times of the day. Blood CAPILLARY BLOOD / Unknown 01/29/2024 7:59 AM EST 01/29/2024 8:00 AM EST Tor Balbuena MD POINT OF CARE TEST ORDERABLES [facility] [place] [address] * (ABNORMAL) POC, GLUCOSE (01/29/2024 4:10 AM EST) Pathologist [facility] [place] Glucometer, POC 200(H) 65 - 199 mg/dL 01/29/2024 4:10 AM EST [facility] Comment:Supplemental ranges: <140 mg/dL before meals <180 mg/dL all other times of the day. Blood CAPILLARY BLOOD / Unknown 01/29/2024 4:10 AM EST 01/29/2024 4:11 AM EST Tor Balbuena MD POINT OF CARE TEST ORDERABLES Performing Organization Address City/[facility]/ZIP Co de Phone Number [facility] [place] [address] * Magnesium (01/29/2024 3:56 AM EST) [facility] Magnesium 0.86 0.69 - 1.07 mMol/L 01/29/2024 4:41 AM EST [facility] Blood VENOUS BLOOD SPECIMEN / Unknown Venipuncture / Unknown 01/29/2024 3:56 AM EST 01/29/2024 4:12 AM EST Tor Balbuena MD CHEMISTRY ORDERABL ES Performing Organization Address [facility] Co de Phone Number [facility] [place] [address] * Phosphorus (01/29/2024 3:56 AM EST) [facility] Phosphorus 3.2 2.5 - 4.5 mg/dL 01/29/2024 4:41 AM EST [facility] Blood VENOUS BLOOD SPECIMEN / Unknown Venipuncture / Unknown 01/29/2024 3:56 AM EST 01/29/2024 4:12 AM EST Tor Balbuena MD CHEMISTRY ORDERABL ES Performing Organization Address City/[facility] Co de Phone Number [facility] [place] [address] * (ABNORMAL) Comprehensive metabolic panel (01/29/2024 3:56 AM EST) [facility] Signature Glucose 205(H) 65 - 199 mg/dL 01/29/2024 4:41 AM [facility] Comment:Glucose Concentratio n >=200 mg/dL plus symptoms is consistent with Diabetes Mellitus. Blood Urea Nitrogen 12 10 - 20 mg/dL 01/29/2024 4:41 AM [facility] Creatinine 0.50(L) 0.80 - 1.50 mg/dL 01/29/2024 4:41 AM [facility] Sodium 136 135 - 145 mMol/L 01/29/2024 4:41 AM [facility] Potassium 3.6 3.5 - 5.0 mMol/L 01/29/2024 4:41 AM [facility] Chloride 99 98 - 107 mMol/L 01/29/2024 4:41 AM [facility] Carbon Dioxide 30 22 - 31 mMol/L 01/29/2024 4:41 AM [facility] Anion Gap 7 5 - 15 mMol/L 01/29/2024 4:41 AM [facility] Calcium 8.5 8.5 - 10.5 mg/dL 01/29/2024 4:41 AM [facility] Protein, Total 5.4(L) 6.1 - 8.0 g/dL 01/29/2024 4:41 AM [facility] Albumin 2.8(L) 3.2 - 5.2 g/dL 01/29/2024 4:41 AM [facility] Aspartate Aminotransferase 17 <=39 unit/L 01/29/2024 4:41 AM [facility] Alanine Aminotransferase 39 0 - 55 unit/L 01/29/2024 4:41 AM [facility] Alkaline Phosphatase 121 40 - 130 unit/L 01/29/2024 4:41 AM [facility] Bilirubin, Total 0.7 <=1.3 mg/dL 01/29/2024 4:41 AM [facility] Est Glomerular Filtration Rate - Male 106 mL/min/1. 73 m?? 01/29/2024 4:41 AM EST [facility] Comment: This patient's estimated [...] MD CHEMISTRY ORDERABL ES Performing Organization Address City/State/[facility] Co de Phone Number [facility] [place] [phone] * (ABNORMAL) CBC (with Diff) (01/29/2024 3:56 AM EST) White Blood Cell 7.65 4.00 - 9.50 x10(3)/mc L 01/29/2024 4:17 AM [facility] Red Blood Cell 2.66(L) 4.58 - 5.54 x10(6)/mc L 01/29/2024 4:17 AM [facility] Hemoglobin 8.2(L) 13.7 - 16.5 g/dL 01/29/2024 4:17 AM [facility] Hematocrit 24.8(L) 40.5 - 48.5 % 01/29/2024 4:17 AM [facility] Mean Cell Volume 93.2(H) 82.9 - 93.1 fL 01/29/2024 4:17 AM [facility] Mean Cell Hemoglobin 30.8 27.5 - 32.1 pg 01/29/2024 4:17 AM [facility] Mean Cell Hemoglobin Concentration 33.1 32.0 - 35.7 g/dL 01/29/2024 4:17 AM [facility] Platelet 184 145 - 357 x10(3)/mc L 01/29/2024 4:17 AM [facility] Mean Platelet Volume 9.2 7.6 - 12.9 fL 01/29/2024 4:17 AM [facility] RDW Standard Deviation 49.5(H) 36.0 - 45.0 fL 01/29/2024 4:17 AM [facility] RDW coefficient of variation 14.6(H) 11.4 - 13.8 % 01/29/2024 4:17 AM [facility] NRBC% auto 0.0 % 01/29/2024 4:17 AM [facility] NRBC Absolute <0.01 <0.01 x10(3)/mc L 01/29/2024 4:17 AM [facility] Neutrophil % 84.3 % 01/29/2024 4:17 AM [facility] Neutrophil Absolute (ANC) - Automated 6.45(H) 1.70 - 6.10 x10(3)/mc L 01/29/2024 4:17 AM [facility] Lymph % 5.9 % 01/29/2024 4:17 AM [facility] Lymph Absolute 0.45(L) 0.90 - 3.20 x10(3)/mc L 01/29/2024 4:17 AM [facility] Monocyte % 7.5 % 01/29/2024 4:17 AM [facility] Monocyte Absolute 0.57 0.30 - 0.90 x10(3)/mc L 01/29/2024 4:17 AM [facility] Eos % 1.4 % 01/29/2024 4:17 AM [facility] Eos Absolute 0.11 0.00 - 0.40 x10(3)/mc L 01/29/2024 4:17 AM EST [facility] Basophil % 0.1 % 01/29/2024 4:17 AM EST [facility] Baso Absolute <0.04 0.00 - 0.10 x10(3)/mc L 01/29/2024 4:17 AM EST [facility] Immature Gran % 0.8 % 4:17 AM EST [facility] Immature Gran Absolute 0.06(H) 0.00 - 0.04 x10(3)/mc L 01/29/2024 4:17 AM [facility] Blood VENOUS BLOOD SPECIMEN / Unknown Venipuncture / Unknown 01/29/2024 3:56 AM EST 01/29/2024 4:12 AM EST Tor Balbuena MD HEMATOLOGY ORDERAB LES Performing Organization Address City/[facility]/ZIP Co de Phone Number [facility] [place] [address] * POC, GLUCOSE (01/28/2024 11:21 PM EST) Glucometer, POC 191 65 - 199 mg/dL 01/28/2024 11:21 PM [facility] Comment:Supplemental ranges: <140 mg/dL before meals <180 mg/dL all other times of the day. Blood CAPILLARY BLOOD / Unknown 01/28/2024 11:21 PM EST 01/28/2024 11:21 PM EST Tor Balbuena MD POINT OF CARE TEST ORDERABLES [facility] [place] [address] * (ABNORMAL) Hemogram (01/28/2024 8:52 PM EST) White Blood Cell 7.33 4.00 - 9.50 x10(3)/mc L 01/28/2024 9:06 PM EST [facility] Red Blood Cell 2.63(L) 4.58 - 5.54 x10(6)/mc L 01/28/2024 9:06 PM [facility] Hemoglobin 8.2(L) 13.7 - 16.5 g/dL 01/28/2024 9:06 PM [facility] Hematocrit 24.3(L) 40.5 - 48.5 % 01/28/2024 9:06 PM [facility] Mean Cell Volume 92.4 82.9 - 93.1 fL 01/28/2024 9:06 PM [facility] Mean Cell Hemoglobin 31.2 27.5 - 32.1 pg 01/28/2024 9:06 PM [facility] Mean Cell Hemoglobin Concentration 33.7 32.0 - 35.7 g/dL 01/28/2024 9:06 PM [facility] Platelet 175 145 - 357 x10(3)/mc L 01/28/2024 9:06 PM [facility] Mean Platelet Volume 8.9 7.6 - 12.9 fL 01/28/2024 9:06 PM [facility] RDW Standard Deviation 49.1(H) 36.0 - 45.0 fL 01/28/2024 9:06 PM [facility] RDW coefficient of variation 14.5(H) 11.4 - 13.8 % 01/28/2024 9:06 PM [facility] NRBC% auto 0.0 % 01/28/2024 9:06 PM [facility] NRBC Absolute <0.01 <0.01 x10(3)/mc L 01/28/2024 9:06 PM [facility] Blood VENOUS BLOOD SPECIMEN / Unknown Venipuncture / Unknown 01/28/2024 8:52 PM EST 01/28/2024 9:02 PM EST Tor Balbuena MD HEMATOLOGY ORDERAB LES [facility] [place] [address] * POC, GLUCOSE (01/28/2024 7:30 PM EST) Glucometer, POC 194 65 - 199 mg/dL 01/28/2024 7:30 PM EST [facility] Comment:Supplemental ranges: <140 mg/dL before meals <180 mg/dL all other times of the day. Blood CAPILLARY BLOOD / Unknown 01/28/2024 7:30 PM EST 01/28/2024 7:30 PM EST Tor Balbuena MD POINT OF CARE TEST ORDERABLES Performing Organization Address City/[facility]/ZIP Co de Phone Number [facility] [place] [address] * POC, GLUCOSE (01/28/2024 3:43 PM EST) Glucometer, POC 191 65 - 199 mg/dL 01/28/2024 3:43 PM EST [facility] Comment:Supplemental ranges: <140 mg/dL before meals <180 mg/dL all other times of the day. Blood CAPILLARY BLOOD / Unknown 01/28/2024 3:43 PM EST 01/28/2024 3:43 PM EST Tor Balbuena MD POINT OF CARE TEST ORDERABLES [facility] [place] [address] * (ABNORMAL) CBC (with Diff) (01/28/2024 1:04 PM EST) White Blood Cell 7.98 4.00 - 9.50 x10(3)/mc L 01/28/2024 1:42 PM EST [facility] Red Blood Cell 2.63(L) 4.58 - 5.54 x10(6)/mc L 01/28/2024 1:42 PM EST [facility] Hemoglobin 8.2(L) 13.7 - 16.5 g/dL 01/28/2024 1:42 PM [facility] Hematocrit 24.3(L) 40.5 - 48.5 % 01/28/2024 1:42 PM [facility] Mean Cell Volume 92.4 82.9 - 93.1 fL 01/28/2024 1:42 PM [facility] Mean Cell Hemoglobin 31.2 27.5 - 32.1 pg 01/28/2024 1:42 PM [facility] Mean Cell Hemoglobin Concentration 33.7 32.0 - 35.7 g/dL 01/28/2024 1:42 PM [facility] Platelet 167 145 - 357 x10(3)/mc L 01/28/2024 1:42 PM [facility] Mean Platelet Volume 9.4 7.6 - 12.9 fL 01/28/2024 1:42 PM [facility] RDW Standard Deviation 48.3(H) 36.0 - 45.0 fL 01/28/2024 1:42 PM [facility] RDW coefficient of variation 14.4(H) 11.4 - 13.8 % 01/28/2024 1:42 PM [facility] NRBC% auto 0.3 % 01/28/2024 1:42 PM [facility] NRBC Absolute 0.02(H) <0.01 x10(3)/mc L 01/28/2024 1:42 PM [facility] Neutrophil % 82.5 % 01/28/2024 1:42 PM [facility] Neutrophil Absolute (ANC) - Automated 6.58(H) 1.70 - 6.10 x10(3)/mc L 01/28/2024 1:42 PM [facility] Lymph % 5.9 % 01/28/2024 1:42 PM [facility] Lymph Absolute 0.47(L) 0.90 - 3.20 x10(3)/mc L 01/28/2024 1:42 PM [facility] Monocyte % 8.9 % 01/28/2024 1:42 PM EST [facility] Monocyte Absolute 0.71 0.30 - 0.90 x10(3)/mc L 01/28/2024 1:42 PM EST [facility] Eos % 1.6 % 01/28/2024 1:42 PM EST [facility] Eos Absolute 0.13 0.00 - 0.40 x10(3)/mc L 01/28/2024 1:42 PM EST [facility] Basophil % 0.1 % 01/28/2024 1:42 PM EST [facility] Baso Absolute <0.04 0.00 - 0.10 x10(3)/mc L 01/28/2024 1:42 PM EST [facility] Immature Gran % 1.0 % 1:42 PM EST [facility] Immature Gran Absolute 0.08(H) 0.00 - 0.04 x10(3)/mc L 01/28/2024 1:42 PM EST [facility] Blood VENOUS BLOOD SPECIMEN / Unknown Venipuncture / Unknown 01/28/2024 1:04 PM EST 01/28/2024 1:30 PM EST Tor Balbuena MD HEMATOLOGY ORDERAB LES Performing Organization Address City/State/[facility] Co de Phone Number [facility] [place] [address] * (ABNORMAL) POC, GLUCOSE (01/28/2024 12:08 PM EST) [facility] Signature Glucometer, POC 206(H) 65 - 199 mg/dL 01/28/2024 12:08 PM EST [facility] Comment:Supplemental ranges: <140 mg/dL before meals <180 mg/dL all other times of the day. Blood CAPILLARY BLOOD / Unknown 01/28/2024 12:08 PM EST 01/28/2024 12:08 PM EST Tor Balbuena MD POINT OF CARE TEST ORDERABLES Performing Organization Address [facility] Co de Phone Number [facility] [place] [address] * (ABNORMAL) POC, GLUCOSE (01/28/2024 7:52 AM EST) Glucometer, POC 209(H) 65 - 199 mg/dL 01/28/2024 7:53 AM EST [facility] Comment:Supplemental ranges: <140 mg/dL before meals <180 mg/dL all other times of the day. Blood CAPILLARY BLOOD / Unknown 01/28/2024 7:52 AM EST 01/28/2024 7:53 AM EST Tor Balbuena MD POINT OF CARE TEST ORDERABLES Performing Organization Address [facility] Co de Phone Number [facility] [place] [address] * POC, GLUCOSE (01/28/2024 3:53 AM EST) Glucometer, POC 185 65 - 199 mg/dL 01/28/2024 3:53 AM EST [facility] Comment:Supplemental ranges: <140 mg/dL before meals <180 mg/dL all other times of the day. Blood CAPILLARY BLOOD / Unknown 01/28/2024 3:53 AM EST 01/28/2024 3:53 AM EST Tor Balbuena MD POINT OF CARE TEST ORDERABLES Performing Organization Address City/[facility] Co de Phone Number [facility] [place] [address] * Magnesium (01/28/2024 3:39 AM EST) Magnesium 0.81 0.69 - 1.07 mMol/L 01/28/2024 4:13 AM EST [facility] Blood VENOUS BLOOD SPECIMEN / Unknown Venipuncture / Unknown 01/28/2024 3:39 AM EST 01/28/2024 3:43 AM EST Tor Balbuena MD CHEMISTRY ORDERABL ES [facility] [place] [address] * Phosphorus (01/28/2024 3:39 AM EST) Pathologist [facility] [place] Phosphorus 2.9 2.5 - 4.5 mg/dL 01/28/2024 4:13 AM EST [facility] Blood VENOUS BLOOD SPECIMEN / Unknown Venipuncture / Unknown 01/28/2024 3:39 AM EST 01/28/2024 3:43 AM EST Tor Balbuena MD CHEMISTRY ORDERABL ES Performing Organization Address City/[facility]/ZIP Co de Phone Number [facility] [place] [address] * (ABNORMAL) Comprehensive metabolic panel (01/28/2024 3:39 AM EST) [facility] Glucose 169 65 - 199 mg/dL 01/28/2024 4:13 AM [facility] Comment:Glucose Concentratio n >=200 mg/dL plus symptoms is consistent with Diabetes Mellitus. Blood Urea Nitrogen 9(L) 10 - 20 mg/dL 01/28/2024 4:13 AM [facility] Creatinine 0.51(L) 0.80 - 1.50 mg/dL 01/28/2024 4:13 AM [facility] Sodium 137 135 - 145 mMol/L 01/28/2024 4:13 AM [facility] Potassium 3.2(L) 3.5 - 5.0 mMol/L 01/28/2024 4:13 AM [facility] Chloride 100 98 - 107 mMol/L 01/28/2024 4:13 AM [facility] Carbon Dioxide 29 22 - 31 mMol/L 01/28/2024 4:13 AM [facility] Anion Gap 8 5 - 15 mMol/L 01/28/2024 4:13 AM [facility] Calcium 8.3(L) 8.5 - 10.5 mg/dL 01/28/2024 4:13 AM EST [facility] Protein, Total 4.9(L) 6.1 - 8.0 g/dL 01/28/2024 4:13 AM [facility] Albumin 2.9(L) 3.2 - 5.2 g/dL 01/28/2024 4:13 AM [facility] Aspartate Aminotransferase 19 <=39 unit/L 01/28/2024 4:13 AM [facility] Alanine Aminotransferase 45 0 - 55 unit/L 01/28/2024 4:13 AM [facility] Alkaline Phosphatase 123 40 - 130 unit/L 01/28/2024 4:13 AM [facility] Bilirubin, Total 0.8 <=1.3 mg/dL 01/28/2024 4:13 AM [facility] Est Glomerular Filtration Rate - Male 105 mL/min/1. 73 m?? 01/28/2024 4:13 AM [facility] Comment: This patient's estimated GFR [...] EST Tor Balbuena MD CHEMISTRY ORDERABL ES [facility] [place] [address] * (ABNORMAL) CBC (with Diff) (01/28/2024 3:39 AM EST) [facility] White Blood Cell 6.91 4.00 - 9.50 x10(3)/mc L 01/28/2024 3:52 AM [facility] Red Blood Cell 2.61(L) 4.58 - 5.54 x10(6)/mc L 01/28/2024 3:52 AM [facility] Hemoglobin 8.1(L) 13.7 - 16.5 g/dL 01/28/2024 3:52 AM [facility] Hematocrit 24.0(L) 40.5 - 48.5 % 01/28/2024 3:52 AM [facility] Mean Cell Volume 92.0 82.9 - 93.1 fL 01/28/2024 3:52 AM [facility] Mean Cell Hemoglobin 31.0 27.5 - 32.1 pg 01/28/2024 3:52 AM [facility] Mean Cell Hemoglobin Concentration 33.8 32.0 - 35.7 g/dL 01/28/2024 3:52 AM [facility] Platelet 160 145 - 357 x10(3)/mc L 01/28/2024 3:52 AM [facility] Mean Platelet Volume 9.1 7.6 - 12.9 fL 01/28/2024 3:52 AM [facility] RDW Standard Deviation 48.2(H) 36.0 - 45.0 fL 01/28/2024 3:52 AM [facility] RDW coefficient of variation 14.2(H) 11.4 - 13.8 % 01/28/2024 3:52 AM [facility] NRBC% auto 0.0 % 01/28/2024 3:52 AM [facility] NRBC Absolute <0.01 <0.01 x10(3)/mc L 01/28/2024 3:52 AM [facility] Neutrophil % 81.1 % 01/28/2024 3:52 AM [facility] Neutrophil Absolute (ANC) - Automated 5.60 1.70 - 6.10 x10(3)/mc L 01/28/2024 3:52 AM EST [facility] Lymph % 7.8 % 01/28/2024 3:52 AM [facility] Lymph Absolute 0.54(L) 0.90 - 3.20 x10(3)/mc L 01/28/2024 3:52 AM [facility] Monocyte % 8.4 % 01/28/2024 3:52 AM [facility] Monocyte Absolute 0.58 0.30 - 0.90 x10(3)/mc L 01/28/2024 3:52 AM [facility] Eos % 2.0 % 01/28/2024 3:52 AM [facility] Eos Absolute 0.14 0.00 - 0.40 x10(3)/mc L 01/28/2024 3:52 AM [facility] Basophil % 0.1 % 01/28/2024 3:52 AM [facility] Baso Absolute <0.04 0.00 - 0.10 x10(3)/mc L 01/28/2024 3:52 AM [facility] Immature Gran % 0.6 % 3:52 AM [facility] Immature Gran Absolute 0.04 0.00 - 0.04 x10(3)/mc L 01/28/2024 3:52 AM [facility] Blood VENOUS BLOOD SPECIMEN / Unknown Venipuncture / Unknown 01/28/2024 3:39 AM EST 01/28/2024 3:43 AM EST Tor Balbuena MD HEMATOLOGY ORDERAB LES [facility] [place] [id number] * (ABNORMAL) Amylase (01/28/2024 3:39 AM EST) Amylase 9(L) 28 - 100 unit/L 01/28/2024 4:13 AM EST [facility] Blood VENOUS BLOOD SPECIMEN / Unknown Venipuncture / Unknown 01/28/2024 3:39 AM EST 01/28/2024 3:43 AM EST Tor Balbuena MD CHEMISTRY ORDERABL ES Performing Organization Address City/[facility]/ZIP Co de Phone Number [facility] [place] [address] * POC, GLUCOSE (01/27/2024 11:52 PM EST) [facility] Glucometer, POC 197 65 - 199 mg/dL 01/27/2024 11:52 PM EST [facility] Comment:Supplemental ranges: <140 mg/dL before meals <180 mg/dL all other times of the day. Blood CAPILLARY BLOOD / Unknown 01/27/2024 11:52 PM EST 01/27/2024 11:52 PM EST Tor Balbuena MD POINT OF CARE TEST ORDERABLES Performing Organization Address City/[facility]/ZIP Co de Phone Number [facility] [place] [address] * Troponin-T, High Sensitivity 1 Hour (01/27/2024 8:24 PM EST) [facility] Troponin-T, High Sensitivity 17 <=22 ng/L 01/27/2024 9:01 PM EST [facility] Comment: This patient's troponin [...] troponin value can be found in the [facility] Test Catalog Troponin - https://one-.testcatalog.org/catalogs/565/files/92012 Reference: Fourth Jackson Definition of Myocardial Infarction. Journal of the [employer] College [employer] 2018;72:0113-9471 Troponin-T, HS 1 hr delta 1 ng/L 01/27/2024 9:01 PM EST [facility] Comment:The 1 hour Troponin T delta value is the absolute difference between the Troponin T concentrations of the initial and subsequent sample collected between 45 - 120 minutes following the initial collection. Blood VENOUS BLOOD SPECIMEN / Unknown Venipuncture / Unknown 01/27/2024 8:24 PM EST 01/27/2024 8:31 PM EST Tor Balbuena MD CHEMISTRY ORDERABL ES Performing Organization Address City/[facility]/ZIP Co de Phone Number [facility] [place] [address] * POC, GLUCOSE (01/27/2024 7:34 PM EST) [facility] Signature Glucometer, POC 197 65 - 199 mg/dL 01/27/2024 7:34 PM EST [facility] Comment:Supplemental ranges: <140 mg/dL before meals <180 mg/dL all other times of the day. Blood CAPILLARY BLOOD / Unknown 01/27/2024 7:34 PM EST 01/27/2024 7:34 PM EST Tor Balbuena MD POINT OF CARE TEST ORDERABLES Performing Organization Address City/[facility]/ZIP Co de Phone Number [facility] [place] [address] * (ABNORMAL) Phosphorus (01/27/2024 7:13 PM EST) Phosphorus 2.3(L) 2.5 - 4.5 mg/dL 01/27/2024 7:57 PM EST [facility] Blood VENOUS BLOOD SPECIMEN / Unknown Venipuncture / Unknown 01/27/2024 7:13 PM EST 01/27/2024 7:16 PM EST Tor Balbuena MD CHEMISTRY ORDERABL ES Performing Organization Address City/[facility]/ZIP Co de Phone Number [facility] [place] [address] * Magnesium (01/27/2024 7:13 PM EST) Magnesium 0.79 0.69 - 1.07 mMol/L 01/27/2024 7:57 PM [facility] Blood VENOUS BLOOD SPECIMEN / Unknown Venipuncture / Unknown 01/27/2024 7:13 PM EST 01/27/2024 7:16 PM EST Tor Balbuena MD CHEMISTRY ORDERABL ES Performing Organization Address City/[facility]/ZIP Co de Phone Number [facility] [place] [address] * (ABNORMAL) Basic Metabolic Panel (01/27/2024 7:13 PM EST) Glucose 202(H) 65 - 199 mg/dL 01/27/2024 7:57 PM EST [facility] Comment:Glucose Concentratio n >=200 mg/dL plus symptoms is consistent with Diabetes Mellitus. Blood Urea Nitrogen 9(L) 10 - 20 mg/dL 01/27/2024 7:57 PM EST [facility] Creatinine 0.50(L) 0.80 - 1.50 mg/dL 01/27/2024 7:57 PM EST [facility] Sodium 135 135 - 145 mMol/L 01/27/2024 7:57 PM [facility] Potassium 3.6 3.5 - 5.0 mMol/L 01/27/2024 7:57 PM [facility] Chloride 100 98 - 107 mMol/L 01/27/2024 7:57 PM EST [facility] Carbon Dioxide 30 22 - 31 mMol/L 01/27/2024 7:57 PM EST [facility] Anion Gap 5 5 - 15 mMol/L 01/27/2024 7:57 PM EST [facility] Calcium 8.1(L) 8.5 - 10.5 mg/dL 01/27/2024 7:57 PM EST [facility] Est Glomerular Filtration Rate - Male 106 mL/min/1. 73 m?? 01/27/2024 7:57 PM EST [facility] Comment: This patient's estimated [...] EST Tor Balbuena MD CHEMISTRY ORDERABL ES [facility] [place] [address] * Troponin-T, High Sensitivity (01/27/2024 7:13 PM EST) Troponin-T, High Sensitivity Initial 18 <=22 ng/L 01/27/2024 7:57 PM EST [facility] Comment: This patient's troponin [...] troponin value can be found in the [facility] Test Catalog Troponin - https://one-.testcatalog.org/catalogs/565/files/59848 Reference: Fourth Jackson Definition of Myocardial Infarction. Journal of the [place] College [employer]iology 2018;72:1660-9571 Blood VENOUS BLOOD SPECIMEN / Unknown Venipuncture / Unknown 01/27/2024 7:13 PM EST 01/27/2024 7:16 PM EST Tor Balbuena MD CHEMISTRY ORDERABL ES [facility] [place] [address] * EKG 12 Lead (01/27/2024 6:57 PM EST) Ventricular rate 89 BPM MUSE SYSTEM Atrial Rate 89 BPM MUSE SYSTEM P-R Interval 168 ms MUSE SYSTEM QRS Duration 112 ms MUSE SYSTEM Q-T Interval 376 ms MUSE SYSTEM QTC Calculated (Bezet) 457 ms MUSE SYSTEM Calculated P [place] 43 degrees MUSE SYSTEM Calculated R [place] -17 degrees MUSE SYSTEM Calculated T [place] 11 degrees MUSE SYSTEM INTERPRETATION Sinus rhythm [...] - 199 mg/dL 01/27/2024 3:43 PM EST [facility] Comment:Supplemental ranges: <140 mg/dL before meals <180 mg/dL all other times of the day. Blood CAPILLARY BLOOD / Unknown 01/27/2024 3:42 PM EST 01/27/2024 3:43 PM EST Tor Balbuena MD POINT OF CARE TEST ORDERABLES Performing Organization Address City/[facility]/ZIP Co de Phone Number [facility] [place] [address] * Amylase Level Body Fluid (01/27/2024 3:16 PM EST) Amylase, Fluid <3 unit/L 01/27/2024 4:17 PM EST [facility] Comment: Reference intervals are unavailable for this test in body fluids. Comparison of this result with the concentration in blood serum or plasma is recommended. This test has not been cleared by the [place] FDA. Performance characteristics of this test for the analysis of body fluids were determined by [facility] in accordance with CLIA requirements. This laboratory is qualified under CLIA to perform high-complexity testing. Reference intervals are unavailable for this test in body fluids. Comparison of this result with the concentration in blood serum or plasma is recommended. This test has not been cleared by the [place] FDA. Performance characteristics of this test for the analysis of body fluids were determined by [facility] in accordance with CLIA requirements. This laboratory is qualified under CLIA to perform high-complexity testing. Body Fluid Source Pietro Page 01/27/2024 4:17 PM EST [facility] Body Fluid PIETRO - PAGE DRAIN / Unknown Non Blood Collection / Unknown 01/27/2024 3:16 PM EST 01/27/2024 3:27 PM EST Tor Balbuena MD BODY FLUIDS AND ST OOLS ORDERABLES Performing Organization Address [facility]/ZIP Co de Phone Number [facility] [place] [address] * (ABNORMAL) POC, GLUCOSE (01/27/2024 12:09 PM EST) Glucometer, POC 202(H) 65 - 199 mg/dL 01/27/2024 12:09 PM EST [facility] Comment:Supplemental ranges: <140 mg/dL before meals <180 mg/dL all other times of the day. Blood CAPILLARY BLOOD / Unknown 01/27/2024 12:09 PM EST 01/27/2024 12:09 PM EST Tor Balbuena MD POINT OF CARE TEST ORDERABLES Performing Organization Address [facility] Co de Phone Number [facility] [place] [address] * Triglyceride Level Body Fluid (01/27/2024 8:27 AM EST) Triglyceride, Fluid 48 mg/dL 01/26 9:29 AM EST [facility] Comment:Reference intervals are unavailable for this test in body fluids. Comparison of this result with the concentration in blood serum or plasma is recommended. This test has not been cleared by the [place] FDA. Performance characteristics of this test for the analysis of body fluids were determined by [facility] in accordance with CLIA requirements. This laboratory is qualified under CLIA to perform high-complexity testing. Body Fluid Source Pietro Page 01/27/2024 9:29 AM EST [facility] Body Fluid PIETRO - PAGE DRAIN / Unknown Non Blood Collection / Unknown 01/27/2024 8:27 AM EST 01/27/2024 8:45 AM EST Tor Balbuena MD BODY FLUIDS AND ST OOLS ORDERABLES Performing Organization Address [facility]/ZIP Co de Phone Number [facility] [place] [address] * POC, GLUCOSE (01/27/2024 7:47 AM EST) Glucometer, POC 149 65 - 199 mg/dL 01/27/2024 7:48 AM EST [facility] Comment:Supplemental ranges: <140 mg/dL before meals <180 mg/dL all other times of the day. Blood CAPILLARY BLOOD / Unknown 01/27/2024 7:47 AM EST 01/27/2024 7:48 AM EST Tor Balbuena MD POINT OF CARE TEST ORDERABLES Performing Organization Address [facility] Co de Phone Number [facility] [place] [address] * CT Abdomen & Pelvis wwo Contrast (GI BLEED) (01/27/2024 3:55 AM EST) WORKSTATION ID [id number] RAD Anatomical Region Laterality Modality Abdomen, Pelvis [...] who have questions please contact the health skin care therapist that requested your imaging first. ? Narrative [...] patients who have questions please contactthe health skin care therapist that requested your imaging first. Tor Balbeuna MD IMG CT ORDERABLES * ABORH RECHECK (PATIENT HISTORY FOUND) (01/27/2024 3:15 AM EST) [facility] ABORH Recheck Progress Complete 01/27/2024 5:01 AM EST [facility] Blood VENOUS BLOOD SPECIMEN / Unknown Venipuncture / Unknown 01/27/2024 3:15 AM EST 01/27/2024 3:20 AM EST Tor Balbuena MD BLOOD BANK LAB ORD ERABLES [facility] [place] [address] * Type and screen ([facility]/CG/NATO) (01/27/2024 3:15 AM EST) [facility] ABORH Type O POSITIVE 01/27/2024 4:16 AM EST [facility] PATIENT HISTORY Found 01/27/2024 4:16 AM EST [facility] Expires at [id number] on: 01/30/2024 01/27/2024 4:16 AM EST [facility] ANTIBODY SCREEN AUTOMATED Negative 01/27/2024 4:16 AM EST [facility] T&S only valid at [facility] 01/27/2024 4:16 AM EST [facility] Blood VENOUS BLOOD SPECIMEN / Unknown Venipuncture / Unknown 01/27/2024 3:15 AM EST 01/27/2024 3:20 AM EST Narrative [facility] - 01/27/2024 4:16 AM EST This Type and Screen result is only valid at the [facility] Tor Balbuena MD BLOOD BANK LAB ORD ERABLES [facility] [place] [address] * POC, GLUCOSE (01/27/2024 3:11 AM EST) [facility] Glucometer, POC 155 65 - 199 mg/dL 01/27/2024 3:11 AM EST [facility] Comment:Supplemental ranges: <140 mg/dL before meals <180 mg/dL all other times of the day. Blood CAPILLARY BLOOD / Unknown 01/27/2024 3:11 AM EST 01/27/2024 3:12 AM EST Tor Balbuena MD POINT OF CARE TEST ORDERABLES [facility] [place] [address] * Triglyceride (01/27/2024 12:48 AM EST) Triglyceride 134 mg/dL 01/27/2024 11:42 AM EST [facility] Comment: Normal: <150 mg/dL Borderline High: 150-199 mg/dL High: 200-499 mg/dL Very High: > or =500 mg/dL Blood VENOUS BLOOD SPECIMEN / Unknown Venipuncture / Unknown 01/27/2024 12:48 AM EST 01/27/2024 12:54 AM EST Tor Balbuena MD CHEMISTRY ORDERABL ES Performing Organization Address City/[facility]/ZIP Co de Phone Number [facility] [place] [address] * Magnesium (01/27/2024 12:48 AM EST) Magnesium 0.78 0.69 - 1.07 mMol/L 01/27/2024 1:29 AM EST [facility] Blood VENOUS BLOOD SPECIMEN / Unknown Venipuncture / Unknown 01/27/2024 12:48 AM EST 01/27/2024 12:54 AM EST Tor Balbuena MD CHEMISTRY ORDERABL ES Performing Organization Address City/[facility]/ZIP Co de Phone Number [facility] [place] [address] * Phosphorus (01/27/2024 12:48 AM EST) Phosphorus 2.9 2.5 - 4.5 mg/dL 01/27/2024 1:29 AM [facility] Blood VENOUS BLOOD SPECIMEN / Unknown Venipuncture / Unknown 01/27/2024 12:48 AM EST 01/27/2024 12:54 AM EST Tor Balbuena MD CHEMISTRY ORDERABL ES [facility] [place] [address] * (ABNORMAL) Comprehensive metabolic panel (01/27/2024 12:48 AM EST) Glucose 154 65 - 199 mg/dL 01/27/2024 1:29 AM [facility] Comment:Glucose Concentratio n >=200 mg/dL plus symptoms is consistent with Diabetes Mellitus. Blood Urea Nitrogen 10 10 - 20 mg/dL 01/27/2024 1:29 AM [facility] Creatinine 0.49(L) 0.80 - 1.50 mg/dL 01/27/2024 1:29 AM [facility] Sodium 137 135 - 145 mMol/L 01/27/2024 1:29 AM [facility] Potassium 3.3(L) 3.5 - 5.0 mMol/L 01/27/2024 1:29 AM [facility] Chloride 101 98 - 107 mMol/L 01/27/2024 1:29 AM [facility] Carbon Dioxide 27 22 - 31 mMol/L 01/27/2024 1:29 AM [facility] Anion Gap 9 5 - 15 mMol/L 01/27/2024 1:29 AM [facility] Calcium 8.0(L) 8.5 - 10.5 mg/dL 01/27/2024 1:29 AM [facility] Protein, Total 5.0(L) 6.1 - 8.0 g/dL 01/27/2024 1:29 AM [facility] Albumin 2.7(L) 3.2 - 5.2 g/dL 01/27/2024 1:29 AM EST [facility] Aspartate Aminotransferase 24 <=39 unit/L 01/27/2024 1:29 AM [facility] Alanine Aminotransferase 60(H) 0 - 55 unit/L 01/27/2024 1:29 AM [facility] Alkaline Phosphatase 124 40 - 130 unit/L 01/27/2024 1:29 AM [facility] Bilirubin, Total 0.8 <=1.3 mg/dL 01/27/2024 1:29 AM [facility] Est Glomerular Filtration Rate - Male 106 mL/min/1. 73 m?? 01/27/2024 1:29 AM [facility] Comment: This patient's estimated GFR [...] EST Tor Balbuena MD CHEMISTRY ORDERABL ES [facility] [place] [address] * (ABNORMAL) CBC (with Diff) (01/27/2024 12:48 AM EST) White Blood Cell 4.35 4.00 - 9.50 x10(3)/mc L 01/27/2024 1:02 AM EST [facility] Red Blood Cell 2.73(L) 4.58 - 5.54 x10(6)/mc L 01/27/2024 1:02 AM [facility] Hemoglobin 8.5(L) 13.7 - 16.5 g/dL 01/27/2024 1:02 AM [facility] Hematocrit 25.2(L) 40.5 - 48.5 % 01/27/2024 1:02 AM [facility] Mean Cell Volume 92.3 82.9 - 93.1 fL 01/27/2024 1:02 AM [facility] Mean Cell Hemoglobin 31.1 27.5 - 32.1 pg 01/27/2024 1:02 AM [facility] Mean Cell Hemoglobin Concentration 33.7 32.0 - 35.7 g/dL 01/27/2024 1:02 AM [facility] Platelet 147 145 - 357 x10(3)/mc L 01/27/2024 1:02 AM [facility] Mean Platelet Volume 9.2 7.6 - 12.9 fL 01/27/2024 1:02 AM [facility] RDW Standard Deviation 48.4(H) 36.0 - 45.0 fL 01/27/2024 1:02 AM [facility] RDW coefficient of variation 14.3(H) 11.4 - 13.8 % 01/27/2024 1:02 AM [facility] NRBC% auto 0.0 % 01/27/2024 1:02 AM [facility] NRBC Absolute <0.01 <0.01 x10(3)/mc L 01/27/2024 1:02 AM [facility] Neutrophil % 75.8 % 01/27/2024 1:02 AM [facility] Neutrophil Absolute (ANC) - Automated 3.30 1.70 - 6.10 x10(3)/mc L 01/27/2024 1:02 AM [facility] Lymph % 11.5 % 01/27/2024 1:02 AM [facility] Lymph Absolute 0.50(L) 0.90 - 3.20 x10(3)/mc L 01/27/2024 1:02 AM [facility] Monocyte % 9.0 % 01/27/2024 1:02 AM [facility] Monocyte Absolute 0.39 0.30 - 0.90 x10(3)/mc L 01/27/2024 1:02 AM [facility] Eos % 3.0 % 01/27/2024 1:02 AM [facility] Eos Absolute 0.13 0.00 - 0.40 x10(3)/mc L 01/27/2024 1:02 AM [facility] Basophil % 0.2 % 01/27/2024 1:02 AM [facility] Baso Absolute <0.04 0.00 - 0.10 x10(3)/mc L 01/27/2024 1:02 AM [facility] Immature Gran % 0.5 % 1:02 AM [facility] Immature Gran Absolute <0.04 0.00 - 0.04 x10(3)/mc L 01/27/2024 1:02 AM [facility] Blood VENOUS BLOOD SPECIMEN / Unknown Venipuncture / Unknown 01/27/2024 12:48 AM EST 01/27/2024 12:55 AM EST Tor Balbuena MD HEMATOLOGY ORDERAB LES [facility] [place] [address] * (ABNORMAL) Amylase (01/27/2024 12:48 AM EST) Amylase 10(L) 28 - 100 unit/L 01/27/2024 1:29 AM [facility] Blood VENOUS BLOOD SPECIMEN / Unknown Venipuncture / Unknown 01/27/2024 12:48 AM EST 01/27/2024 12:54 AM EST Tor Balbuena MD CHEMISTRY ORDERABL ES Performing Organization Address [facility] Co de Phone Number [facility] [place] [address] * POC, GLUCOSE (01/27/2024 12:36 AM EST) Glucometer, POC 162 65 - 199 mg/dL 01/27/2024 12:36 AM EST [facility] Comment:Supplemental ranges: <140 mg/dL before meals <180 mg/dL all other times of the day. Blood CAPILLARY BLOOD / Unknown 01/27/2024 12:36 AM EST 01/27/2024 12:36 AM EST Tor Balbuena MD POINT OF CARE TEST ORDERABLES Performing Organization Address [facility] Co de Phone Number [facility] [place] [address] * POC, GLUCOSE (2024 8:03 PM EST) Glucometer, POC 139 65 - 199 mg/dL 2024 8:04 PM EST [facility] Comment:Supplemental ranges: <140 mg/dL before meals <180 mg/dL all other times of the day. Blood CAPILLARY BLOOD / Unknown 2024 8:03 PM EST 2024 8:04 PM EST Tor Balbuena MD POINT OF CARE TEST ORDERABLES Performing Organization Address City/[facility]/ZIP Co de Phone Number [facility] [place] [address] * POC, GLUCOSE (2024 4:14 PM EST) Glucometer, POC 143 65 - 199 mg/dL 2024 4:14 PM EST [facility] Comment:Supplemental ranges: <140 mg/dL before meals <180 mg/dL all other times of the day. Blood CAPILLARY BLOOD / Unknown 2024 4:14 PM EST 2024 4:14 PM EST Tor Balbuena MD POINT OF CARE TEST ORDERABLES Performing Organization Address [facility]/ZIP Co de Phone Number [facility] [place] [address] * Amylase Level Body Fluid (2024 1:04 PM EST) Amylase, Fluid 4 unit/L 2024 5:31 PM EST [facility] Comment:Reference intervals are unavailable for this test in body fluids. Comparison of this result with the concentration in blood serum or plasma is recommended. This test has not been cleared by the [place] FDA. Performance characteristics of this test for the analysis of body fluids were determined by [facility] in accordance with CLIA requirements. This laboratory is qualified under CLIA to perform high-complexity testing. Body Fluid Source Heather drain 024 5:31 PM EST [facility] HEATHER Drain 2024 1:04 PM EST 2024 1:10 PM EST Tor Balbuena MD BODY FLUIDS AND ST OOLS ORDERABLES Performing Organization Address [facility] Co de Phone Number [facility] [place] [address] * POC, GLUCOSE (2024 11:40 AM EST) Glucometer, POC 140 65 - 199 mg/dL 2024 11:40 AM EST [facility] Comment:Supplemental ranges: <140 mg/dL before meals <180 mg/dL all other times of the day. Blood CAPILLARY BLOOD / Unknown 2024 11:40 AM EST 2024 11:41 AM EST Tor Balbuena MD POINT OF CARE TEST ORDERABLES [facility] [place] [address] * POC, GLUCOSE (2024 8:20 AM EST) Glucometer, POC 182 65 - 199 mg/dL 2024 8:20 AM EST [facility] Comment:Supplemental ranges: <140 mg/dL before meals <180 mg/dL all other times of the day. Blood CAPILLARY BLOOD / Unknown 2024 8:20 AM EST 2024 8:20 AM EST Tor Balbuena MD POINT OF CARE TEST ORDERABLES [facility] [place] [address] * POC, GLUCOSE (2024 5:04 AM EST) Glucometer, POC 155 65 - 199 mg/dL 2024 5:04 AM EST [facility] Comment:Supplemental ranges: <140 mg/dL before meals <180 mg/dL all other times of the day. Blood CAPILLARY BLOOD / Unknown 2024 5:04 AM EST 2024 5:04 AM EST Tor Balbuena MD POINT OF CARE TEST ORDERABLES [facility] [place] [address] * POC, GLUCOSE (2024 12:24 AM EST) Glucometer, POC 146 65 - 199 mg/dL 2024 12:24 AM EST [facility] Comment:Supplemental ranges: <140 mg/dL before meals <180 mg/dL all other times of the day. Blood CAPILLARY BLOOD / Unknown 2024 12:24 AM EST 2024 12:24 AM EST Tor Balbuena MD POINT OF CARE TEST ORDERABLES [facility] [place] [address] * Magnesium (2024 12:22 AM EST) Pathologist [facility] [place] Magnesium 0.82 0.69 - 1.07 mMol/L 2024 1:09 AM EST [facility] Blood VENOUS BLOOD SPECIMEN / Unknown Venipuncture / Unknown 2024 12:22 AM EST 2024 12:35 AM EST Tor Balbuena MD CHEMISTRY ORDERABL ES Performing Organization Address City/[facility]/ZIP Co de Phone Number [facility] [place] [address] * (ABNORMAL) Phosphorus (2024 12:22 AM EST) Pathologist [facility] [place] Phosphorus 2.1(L) 2.5 - 4.5 mg/dL 2024 1:09 AM EST [facility] Blood VENOUS BLOOD SPECIMEN / Unknown Venipuncture / Unknown 2024 12:22 AM EST 2024 12:35 AM EST Tor Balbuena MD CHEMISTRY ORDERABL ES [facility] [place] [address] * (ABNORMAL) Comprehensive metabolic panel (2024 12:22 AM EST) Glucose 149 65 - 199 mg/dL 2024 1:09 AM EST [facility] Comment:Glucose Concentratio n >=200 mg/dL plus symptoms is consistent with Diabetes Mellitus. Blood Urea Nitrogen 8(L) 10 - 20 mg/dL 2024 1:09 AM EST [facility] Creatinine 0.51(L) 0.80 - 1.50 mg/dL 2024 1:09 AM [facility] Sodium 138 135 - 145 mMol/L 2024 1:09 AM [facility] Potassium 3.6 3.5 - 5.0 mMol/L 2024 1:09 AM [facility] Chloride 102 98 - 107 mMol/L 2024 1:09 AM [facility] Carbon Dioxide 30 22 - 31 mMol/L 2024 1:09 AM [facility] Anion Gap 6 5 - 15 mMol/L 2024 1:09 AM [facility] Calcium 8.1(L) 8.5 - 10.5 mg/dL 2024 1:09 AM [facility] Protein, Total 5.0(L) 6.1 - 8.0 g/dL 2024 1:09 AM [facility] Albumin 2.8(L) 3.2 - 5.2 g/dL 2024 1:09 AM [facility] Aspartate Aminotransferase 39 <=39 unit/L 2024 1:09 AM [facility] Alanine Aminotransferase 89(H) 0 - 55 unit/L 2024 1:09 AM [facility] Alkaline Phosphatase 126 40 - 130 unit/L 2024 1:09 AM [facility] Bilirubin, Total 0.9 <=1.3 mg/dL 2024 1:09 AM [facility] Est Glomerular Filtration Rate - Male 105 mL/min/1. 73 m?? 2024 1:09 AM [facility] Comment: This patient's estimated GFR [...] EST Tor Balbuena MD CHEMISTRY ORDERABL ES [facility] [place] [address] * (ABNORMAL) CBC (with Diff) (2024 12:22 AM EST) White Blood Cell 4.88 4.00 - 9.50 x10(3)/mc L 2024 12:43 AM [facility] Red Blood Cell 2.83(L) 4.58 - 5.54 x10(6)/mc L 2024 12:43 AM [facility] Hemoglobin 8.7(L) 13.7 - 16.5 g/dL 2024 12:43 AM [facility] Hematocrit 26.2(L) 40.5 - 48.5 % 2024 12:43 AM [facility] Mean Cell Volume 92.6 82.9 - 93.1 fL 2024 12:43 AM [facility] Mean Cell Hemoglobin 30.7 27.5 - 32.1 pg 2024 12:43 AM [facility] Mean Cell Hemoglobin Concentration 33.2 32.0 - 35.7 g/dL 2024 12:43 AM [facility] Platelet 126(L) 145 - 357 x10(3)/mc L 2024 12:43 AM [facility] Mean Platelet Volume 9.4 7.6 - 12.9 fL 2024 12:43 AM [facility] RDW Standard Deviation 49.8(H) 36.0 - 45.0 fL 2024 12:43 AM [facility] RDW coefficient of variation 14.6(H) 11.4 - 13.8 % 2024 12:43 AM [facility] NRBC% auto 0.0 % 2024 12:43 AM [facility] NRBC Absolute <0.01 <0.01 x10(3)/mc L 2024 12:43 AM [facility] Neutrophil % 77.7 % 2024 12:43 AM [facility] Neutrophil Absolute (ANC) - Automated 3.79 1.70 - 6.10 x10(3)/mc L 2024 12:43 AM [facility] Lymph % 9.6 % 2024 12:43 AM [facility] Lymph Absolute 0.47(L) 0.90 - 3.20 x10(3)/mc L 2024 12:43 AM [facility] Monocyte % 10.2 % 2024 12:43 AM [facility] Monocyte Absolute 0.50 0.30 - 0.90 x10(3)/mc L 2024 12:43 AM [facility] Eos % 2.3 % 2024 12:43 AM [facility] Eos Absolute 0.11 0.00 - 0.40 x10(3)/mc L 2024 12:43 AM [facility] Basophil % 0.0 % 2024 12:43 AM [facility] Baso Absolute <0.04 0.00 - 0.10 x10(3)/mc L 2024 12:43 AM [facility] Immature Gran % 0.2 % 12:43 AM [facility] Immature Gran Absolute <0.04 0.00 - 0.04 x10(3)/mc L 2024 12:43 AM EST [facility] Blood VENOUS BLOOD SPECIMEN / Unknown Venipuncture / Unknown 2024 12:22 AM EST 2024 12:35 AM EST Tor Balbuena MD HEMATOLOGY ORDERAB LES Performing Organization Address City/[facility]/ZIP Co de Phone Number [facility] [place] [address] * (ABNORMAL) Amylase (2024 12:22 AM EST) Amylase 9(L) 28 - 100 unit/L 2024 1:09 AM EST [facility] Blood VENOUS BLOOD SPECIMEN / Unknown Venipuncture / Unknown 2024 12:22 AM EST 2024 12:35 AM EST Tor Balbuena MD CHEMISTRY ORDERABL ES Performing Organization Address [facility] Co ga Phone Number [facility] [place] [address] * POC, GLUCOSE (01/25/2024 8:19 PM EST) Glucometer, POC 168 65 - 199 mg/dL 01/25/2024 8:19 PM EST [facility] Comment:Supplemental ranges: <140 mg/dL before meals <180 mg/dL all other times of the day. Blood CAPILLARY BLOOD / Unknown 01/25/2024 8:19 PM EST 01/25/2024 8:19 PM EST Tor Balbuena MD POINT OF CARE TEST ORDERABLES Performing Organization Address [facility] Co de Phone Number [facility] [place] [address] * POC, GLUCOSE (01/25/2024 4:13 PM EST) Glucometer, POC 150 65 - 199 mg/dL 01/25/2024 4:13 PM EST [facility] Comment:Supplemental ranges: <140 mg/dL before meals <180 mg/dL all other times of the day. Blood CAPILLARY BLOOD / Unknown 01/25/2024 4:13 PM EST 01/25/2024 4:13 PM EST Tor Balbuena MD POINT OF CARE TEST ORDERABLES Performing Organization Address [facility] de Phone Number [facility] [place] [address] * Amylase Level Body Fluid (01/25/2024 2:15 PM EST) Amylase, Fluid 7 unit/L 01/25/2024 4:10 PM EST [facility] Comment:Reference intervals are unavailable for this test in body fluids. Comparison of this result with the concentration in blood serum or plasma is recommended. This test has not been cleared by the [place] FDA. Performance characteristics of this test for the analysis of body fluids were determined by [facility] in accordance with CLIA requirements. This laboratory is qualified under CLIA to perform high-complexity testing. Body Fluid Source HEATHER drain 4:10 PM EST [facility] HEATHER Drain 01/25/2024 2:15 PM EST 01/25/2024 2:19 PM EST Tor Balbuena MD BODY FLUIDS AND ST OOLS ORDERABLES Performing Organization Address [facility] de Phone Number [facility] [place] [address] * POC, GLUCOSE (01/25/2024 11:42 AM EST) Glucometer, POC 199 65 - 199 mg/dL 01/25/2024 11:43 AM EST [facility] Comment:Supplemental ranges: <140 mg/dL before meals <180 mg/dL all other times of the day. Blood CAPILLARY BLOOD / Unknown 01/25/2024 11:42 AM EST 01/25/2024 11:43 AM EST Tor Balbuena MD POINT OF CARE TEST ORDERABLES Performing Organization Address [facility] Co de Phone Number [facility] [place] [address] * POC, GLUCOSE (01/25/2024 8:20 AM EST) Glucometer, POC 188 65 - 199 mg/dL 01/25/2024 8:20 AM EST [facility] Comment:Supplemental ranges: <140 mg/dL before meals <180 mg/dL all other times of the day. Blood CAPILLARY BLOOD / Unknown 01/25/2024 8:20 AM EST 01/25/2024 8:20 AM EST Tor Balbuena MD POINT OF CARE TEST ORDERABLES Performing Organization Address [facility] Co de Phone Number [facility] [place] [address] * Gold Tube HOLD (01/25/2024 6:52 AM EST) Gold Hold Hold for Add-on 01/25/2024 9:01 AM EST [facility] Blood VENOUS BLOOD SPECIMEN / Unknown Venipuncture / Unknown 01/25/2024 6:52 AM EST 01/25/2024 7:05 AM EST Tor Balbuena MD CHEMISTRY ORDERABL ES Performing Organization Address City/[facility] Co de Phone Number [facility] [place] [address] * Potassium (01/25/2024 6:52 AM EST) Potassium 3.8 3.5 - 5.0 mMol/L 01/25/2024 7:47 AM EST [facility] Blood VENOUS BLOOD SPECIMEN / Unknown Venipuncture / Unknown 01/25/2024 6:52 AM EST 01/25/2024 7:02 AM EST Tor Balbuena MD CHEMISTRY ORDERABL ES Performing Organization Address [facility]/ZIP Co de Phone Number [facility] [place] [address] * (ABNORMAL) Alanine Aminotransferase (01/25/2024 6:52 AM EST) Alanine Aminotransferase 108(H) 0 - 55 unit/L 01/25/2024 7:47 AM EST [facility] Blood VENOUS BLOOD SPECIMEN / Unknown Venipuncture / Unknown 01/25/2024 6:52 AM EST 01/25/2024 7:02 AM EST Tor Balbuena MD CHEMISTRY ORDERABL ES Performing Organization Address [facility] Co de Phone Number [facility] [place] [address] * (ABNORMAL) Aspartate Aminotransferase (01/25/2024 6:52 AM EST) Aspartate Aminotransferase 63(H) <=39 unit/L 01/25/2024 7:47 AM EST [facility] Blood VENOUS BLOOD SPECIMEN / Unknown Venipuncture / Unknown 01/25/2024 6:52 AM EST 01/25/2024 7:02 AM EST Tor Balbuena MD CHEMISTRY ORDERABL ES Performing Organization Address City/[facility]/ZIP Co de Phone Number [facility] [place] [address] * POC, GLUCOSE (01/25/2024 3:18 AM EST) Glucometer, POC 179 65 - 199 mg/dL 01/25/2024 3:18 AM EST [facility] Comment:Supplemental ranges: <140 mg/dL before meals <180 mg/dL all other times of the day. Blood CAPILLARY BLOOD / Unknown 01/25/2024 3:18 AM EST 01/25/2024 3:18 AM EST Tor Balbuena MD POINT OF CARE TEST ORDERABLES [facility] [place] [address] * Magnesium (01/25/2024 12:28 AM EST) Pathologist [facility] [place] Magnesium 0.83 0.69 - 1.07 mMol/L 01/25/2024 1:07 AM EST [facility] Blood VENOUS BLOOD SPECIMEN / Unknown Venipuncture / Unknown 01/25/2024 12:28 AM EST 01/25/2024 12:39 AM EST Tor Balbuena MD CHEMISTRY ORDERABL ES Performing Organization Address City/[facility]/ZIP Co de Phone Number [facility] [place] [address] * (ABNORMAL) Phosphorus (01/25/2024 12:28 AM EST) Pathologist [facility] [place] Phosphorus 2.4(L) 2.5 - 4.5 mg/dL 01/25/2024 1:07 AM EST [facility] Blood VENOUS BLOOD SPECIMEN / Unknown Venipuncture / Unknown 01/25/2024 12:28 AM EST 01/25/2024 12:39 AM EST Tor Balbuena MD CHEMISTRY ORDERABL ES Performing Organization Address City/[facility]/ZIP Co de Phone Number [facility] [place] [address] * (ABNORMAL) Comprehensive metabolic panel (01/25/2024 12:28 AM EST) Glucose 203(H) 65 - 199 mg/dL 01/25/2024 5:42 AM EST [facility] Comment:Glucose Concentratio n >=200 mg/dL plus symptoms is consistent with Diabetes Mellitus. Blood Urea Nitrogen 14 10 - 20 mg/dL 01/25/2024 5:42 AM EST [facility] Creatinine 0.54(L) 0.80 - 1.50 mg/dL 01/25/2024 5:42 AM [facility] Sodium 135 135 - 145 mMol/L 01/25/2024 5:42 AM [facility] Potassium 01/25/2024 5:42 AM [facility] Comment:Unable to report due to hemolysis. Chloride 105 98 - 107 mMol/L 01/25/2024 5:42 AM [facility] Carbon Dioxide 25 22 - 31 mMol/L 01/25/2024 5:42 AM [facility] Anion Gap 5 5 - 15 mMol/L 01/25/2024 5:42 AM [facility] Calcium 7.5(L) 8.5 - 10.5 mg/dL 01/25/2024 5:42 AM [facility] Protein, Total 5.0(L) 6.1 - 8.0 g/dL 01/25/2024 5:42 AM [facility] Albumin 2.7(L) 3.2 - 5.2 g/dL 01/25/2024 5:42 AM [facility] Aspartate Aminotransferase 01/25/2024 5:42 AM [facility] Comment:Unable to report due to hemolysis. Alanine Aminotransferase 01/25/2024 5:42 AM [facility] Comment:Unable to report due to hemolysis. Alkaline Phosphatase 131(H) 40 - 130 unit/L 01/25/2024 5:42 AM [facility] Bilirubin, Total 1.1 <=1.3 mg/dL 01/25/2024 5:42 AM [facility] Est Glomerular Filtration Rate - Male 104 mL/min/1. 73 m?? 01/25/2024 5:42 AM [facility] Comment: This patient's estimated GFR [...] EST Tor Balbuena MD CHEMISTRY ORDERABL ES [facility] [place] [address] * (ABNORMAL) CBC (with Diff) (01/25/2024 12:28 AM EST) White Blood Cell 5.72 4.00 - 9.50 x10(3)/mc L 01/25/2024 12:44 AM [facility] Red Blood Cell 3.04(L) 4.58 - 5.54 x10(6)/mc L 01/25/2024 12:44 AM [facility] Hemoglobin 9.5(L) 13.7 - 16.5 g/dL 01/25/2024 12:44 AM [facility] Hematocrit 28.4(L) 40.5 - 48.5 % 01/25/2024 12:44 AM [facility] Mean Cell Volume 93.4(H) 82.9 - 93.1 fL 01/25/2024 12:44 AM [facility] Mean Cell Hemoglobin 31.3 27.5 - 32.1 pg 01/25/2024 12:44 AM [facility] Mean Cell Hemoglobin Concentration 33.5 32.0 - 35.7 g/dL 01/25/2024 12:44 AM [facility] Platelet 101(L) 145 - 357 x10(3)/mc L 01/25/2024 12:44 AM [facility] Mean Platelet Volume 9.7 7.6 - 12.9 fL 01/25/2024 12:44 AM [facility] RDW Standard Deviation 54.1(H) 36.0 - 45.0 fL 01/25/2024 12:44 AM [facility] RDW coefficient of variation 16.0(H) 11.4 - 13.8 % 01/25/2024 12:44 AM [facility] NRBC% auto 0.0 % 01/25/2024 12:44 AM [facility] NRBC Absolute <0.01 <0.01 x10(3)/mc L 01/25/2024 12:44 AM [facility] Neutrophil % 79.9 % 01/25/2024 12:44 AM [facility] Neutrophil Absolute (ANC) - Automated 4.57 1.70 - 6.10 x10(3)/mc L 01/25/2024 12:44 AM [facility] Lymph % 7.9 % 01/25/2024 12:44 AM [facility] Lymph Absolute 0.45(L) 0.90 - 3.20 x10(3)/mc L 01/25/2024 12:44 AM [facility] Monocyte % 9.8 % 01/25/2024 12:44 AM [facility] Monocyte Absolute 0.56 0.30 - 0.90 x10(3)/mc L 01/25/2024 12:44 AM [facility] Eos % 1.9 % 01/25/2024 12:44 AM [facility] Eos Absolute 0.11 0.00 - 0.40 x10(3)/mc L 01/25/2024 12:44 AM [facility] Basophil % 0.2 % 01/25/2024 12:44 AM [facility] Baso Absolute <0.04 0.00 - 0.10 x10(3)/mc L 01/25/2024 12:44 AM [facility] Immature Gran % 0.3 % 12:44 AM [facility] Immature Gran Absolute <0.04 0.00 - 0.04 x10(3)/mc L 01/25/2024 12:44 AM EST [facility] Blood VENOUS BLOOD SPECIMEN / Unknown Venipuncture / Unknown 01/25/2024 12:28 AM EST 01/25/2024 12:39 AM EST Tor Balbuena MD HEMATOLOGY ORDERAB LES Performing Organization Address City/[facility]/ZIP Co de Phone Number [facility] [place] [address] * (ABNORMAL) Amylase (01/25/2024 12:28 AM EST) Amylase 8(L) 28 - 100 unit/L 01/25/2024 1:07 AM EST [facility] Blood VENOUS BLOOD SPECIMEN / Unknown Venipuncture / Unknown 01/25/2024 12:28 AM EST 01/25/2024 12:39 AM EST Tor Balbuena MD CHEMISTRY ORDERABL ES Performing Organization Address [facility] Phone Number [facility] [place] [address] * POC, GLUCOSE (01/25/2024 12:05 AM EST) Pathologist [facility] [place] Glucometer, POC 189 65 - 199 mg/dL 01/25/2024 12:05 AM EST [facility] Comment:Supplemental ranges: <140 mg/dL before meals <180 mg/dL all other times of the day. Blood CAPILLARY BLOOD / Unknown 01/25/2024 12:05 AM EST 01/25/2024 12:05 AM EST Tor Balbuena MD POINT OF CARE TEST ORDERABLES Performing Organization Address [facility] Co de Phone Number [facility] [place] [address] * EKG 12 Lead (01/24/2024 9:38 PM EST) Ventricular rate 82 BPM MUSE SYSTEM Atrial Rate 82 BPM MUSE SYSTEM P-R Interval 156 ms MUSE SYSTEM QRS Duration 104 ms MUSE SYSTEM Q-T Interval 388 ms MUSE SYSTEM QTC Calculated (Bezet) 453 ms MUSE SYSTEM Calculated P [place] 41 degrees MUSE SYSTEM Calculated R [place] -29 degrees MUSE SYSTEM Calculated T [place] 28 degrees MUSE SYSTEM INTERPRETATION Normal sinus rhythm Normal ECG When compared with ECG of 18-JUL-2021 20:14, No significant change was found Confirmed by Chinmay Perkins MD ([id number]) on 2024 10:35:50 AM MUSE SYSTEM 01/24/2024 9:38 PM EST 2024 10:35 AM EST Tor Balbuena MD ECG ORDERABLES Performing Organization Address [facility] Phone Number MUSE SYSTEM * POC, GLUCOSE (01/24/2024 7:33 PM EST) Glucometer, POC 156 65 - 199 mg/dL 01/24/2024 7:33 PM EST [facility] Comment:Supplemental ranges: <140 mg/dL before meals <180 mg/dL all other times of the day. Blood CAPILLARY BLOOD / Unknown 01/24/2024 7:33 PM EST 01/24/2024 7:34 PM EST Tor Balbuena MD POINT OF CARE TEST ORDERABLES Performing Organization Address [facility] Co ga Phone Number [facility] [place] [address] * POC, GLUCOSE (01/24/2024 3:49 PM EST) Glucometer, POC 110 65 - 199 mg/dL 01/24/2024 3:49 PM EST [facility] Comment:Supplemental ranges: <140 mg/dL before meals <180 mg/dL all other times of the day. Blood CAPILLARY BLOOD / Unknown 01/24/2024 3:49 PM EST 01/24/2024 3:49 PM EST Tor Balbuena MD POINT OF CARE TEST ORDERABLES Performing Organization Address City/[facility]/ZIP Co de Phone Number [facility] [place] [address] * Amylase Level Body Fluid (01/24/2024 1:48 PM EST) Amylase, Fluid 12 unit/L 01/24/2024 2:44 PM EST [facility] Comment:Reference intervals are unavailable for this test in body fluids. Comparison of this result with the concentration in blood serum or plasma is recommended. This test has not been cleared by the [place] FDA. Performance characteristics of this test for the analysis of body fluids were determined by [facility] in accordance with CLIA requirements. This laboratory is qualified under CLIA to perform high-complexity testing. Body Fluid Source HEATHER Fluid 2:44 PM EST [facility] HEATHER Drain 01/24/2024 1:48 PM EST 01/24/2024 1:54 PM EST Tor Balbuena MD BODY FLUIDS AND ST OOLS ORDERABLES Performing Organization Address [facility]/ZIP Co de Phone Number [facility] [place] [address] * POC, GLUCOSE (01/24/2024 12:08 PM EST) Glucometer, POC 77 65 - 199 mg/dL 01/24/2024 12:08 PM EST [facility] Comment:Supplemental ranges: <140 mg/dL before meals <180 mg/dL all other times of the day. Blood CAPILLARY BLOOD / Unknown 01/24/2024 12:08 PM EST 01/24/2024 12:09 PM EST Tor Balbuena MD POINT OF CARE TEST ORDERABLES Performing Organization Address City/[facility]/ZIP Co de Phone Number [facility] [place] [address] * POC, GLUCOSE (01/24/2024 9:07 AM EST) Glucometer, POC 69 65 - 199 mg/dL 01/24/2024 9:07 AM EST [facility] Comment:Supplemental ranges: <140 mg/dL before meals <180 mg/dL all other times of the day. Blood CAPILLARY BLOOD / Unknown 01/24/2024 9:07 AM EST 01/24/2024 9:07 AM EST Tor Balbuena MD POINT OF CARE TEST ORDERABLES Performing Organization Address City/[facility]/ZIP Co de Phone Number [facility] [place] [address] * POC, GLUCOSE (01/24/2024 8:36 AM EST) Glucometer, POC 68 65 - 199 mg/dL 01/24/2024 8:36 AM EST [facility] Comment:Supplemental ranges: <140 mg/dL before meals <180 mg/dL all other times of the day. Blood CAPILLARY BLOOD / Unknown 01/24/2024 8:36 AM EST 01/24/2024 8:36 AM EST Tor Balbuena MD POINT OF CARE TEST ORDERABLES Performing Organization Address City/[facility] Co de Phone Number [facility] [place] [address] * (ABNORMAL) POC, GLUCOSE (01/24/2024 8:07 AM EST) Glucometer, POC 57(L) 65 - 199 mg/dL 01/24/2024 8:07 AM EST [facility] Comment:Supplemental ranges: <140 mg/dL before meals <180 mg/dL all other times of the day. Blood CAPILLARY BLOOD / Unknown 01/24/2024 8:07 AM EST 01/24/2024 8:07 AM EST Tor Balbuena MD POINT OF CARE TEST ORDERABLES Performing Organization Address City/[facility]/ZIP Co de Phone Number [facility] [place] [address] * POC, GLUCOSE (01/24/2024 6:08 AM EST) Glucometer, POC 74 65 - 199 mg/dL 01/24/2024 6:08 AM EST [facility] Comment:Supplemental ranges: <140 mg/dL before meals <180 mg/dL all other times of the day. Blood CAPILLARY BLOOD / Unknown 01/24/2024 6:08 AM EST 01/24/2024 6:08 AM EST Tor Balbuena MD POINT OF CARE TEST ORDERABLES Performing Organization Address City/[facility]/ZIP Co de Phone Number [facility] [place] [address] * Prepare RBC (01/24/2024 4:07 AM EST) Status Information Transfused [facility] Product Identification RBC [facility] Unit [facility] [id number] [facility] Product Code [id number] [facility] Unit Blood Type OPOS [facility] Specimen Expiration Date [facility] Volulme 287 [facility] Issue Date / Time [facility] Status Information Returned [facility] Product Identification RBC [facility] Unit Number [id number] [facility] Product Code [id number] [facility] Unit Blood Type OPOS [facility] Specimen Expiration Date [facility] [address] 350 [facility] Issue Date / Time [facility] Blood 01/23/2024 3:2 5 PM EST Shaheen Cody MD BLOOD BANK PRODUCT O RDERABLES Performing Organization Address City/[facility]/ZIP Co de Phone Number [facility] [place] [address] * POC, GLUCOSE (01/24/2024 4:01 AM EST) Glucometer, POC 73 65 - 199 mg/dL 01/24/2024 4:02 AM EST [facility] Comment:Supplemental ranges: <140 mg/dL before meals <180 mg/dL all other times of the day. Blood CAPILLARY BLOOD / Unknown 01/24/2024 4:01 AM EST 01/24/2024 4:02 AM EST Tor Balbuena MD POINT OF CARE TEST ORDERABLES Performing Organization Address City/[facility]/ZIP Co de Phone Number [facility] [place] [address] * Prepare RBC (01/24/2024 2:07 AM EST) Status Information Transfused [facility] Product Identification RBC [facility] Unit Number [id number] [facility] Product Code [id number] [facility] Unit Blood Type OPOS [facility] Specimen Expiration Date [facility] Volulme 350 [facility] Issue Date / Time [facility] Status Information Transfused [facility] Product Identification RBC [facility] Unit [facility] [id number] [facility] Product Code [id number] [facility] Unit Blood Type OPOS [facility] Specimen Expiration Date [facility] Volulme 350 [facility] Issue Date / Time [facility] Blood 01/23/2024 1:0 9 PM EST Shaheen Cody MD BLOOD BANK PRODUCT O RDERABLES Performing Organization Address City/[facility]/ZIP Co de Phone Number [facility] [place] [address] * POC, GLUCOSE (01/24/2024 1:40 AM EST) Glucometer, POC 82 65 - 199 mg/dL 01/24/2024 1:40 AM EST [facility] Comment:Supplemental ranges: <140 mg/dL before meals <180 mg/dL all other times of the day. Blood CAPILLARY BLOOD / Unknown 01/24/2024 1:40 AM EST 01/24/2024 1:40 AM EST Tor Balbuena MD POINT OF CARE TEST ORDERABLES Performing Organization Address [facility] Co de Phone Number [facility] [place] [address] * POC, GLUCOSE (01/24/2024 12:10 AM EST) Glucometer, POC 82 65 - 199 mg/dL 01/24/2024 12:10 AM EST [facility] Comment:Supplemental ranges: <140 mg/dL before meals <180 mg/dL all other times of the day. Blood CAPILLARY BLOOD / Unknown 01/24/2024 12:10 AM EST 01/24/2024 12:11 AM EST Tor Balbuena MD POINT OF CARE TEST ORDERABLES Performing Organization Address [facility] Co de Phone Number [facility] [place] [address] * Magnesium (01/24/2024 12:01 AM EST) Magnesium 0.76 0.69 - 1.07 mMol/L 01/24/2024 12:53 AM EST [facility] Blood VENOUS BLOOD SPECIMEN / Unknown Arterial / Unknown 01/24/2024 12:01 AM EST 01/24/2024 12:23 AM EST Tor Balbuena MD CHEMISTRY ORDERABL ES Performing Organization Address City/[facility] Co de Phone Number [facility] [place] [address] * Phosphorus (01/24/2024 12:01 AM EST) Phosphorus 4.3 2.5 - 4.5 mg/dL 01/24/2024 12:53 AM EST [facility] Blood VENOUS BLOOD SPECIMEN / Unknown Arterial / Unknown 01/24/2024 12:01 AM EST 01/24/2024 12:23 AM EST Tor Balbuena MD CHEMISTRY ORDERABL ES [facility] [place] [address] * (ABNORMAL) Comprehensive metabolic panel (01/24/2024 12:01 AM EST) Glucose 86 65 - 199 mg/dL 01/24/2024 12:53 AM [facility] Comment:Glucose Concentratio n >=200 mg/dL plus symptoms is consistent with Diabetes Mellitus. Blood Urea Nitrogen 17 10 - 20 mg/dL 01/24/2024 12:53 AM [facility] Creatinine 0.71(L) 0.80 - 1.50 mg/dL 01/24/2024 12:53 AM [facility] Sodium 139 135 - 145 mMol/L 01/24/2024 12:53 AM [facility] Potassium 4.2 3.5 - 5.0 mMol/L 01/24/2024 12:53 AM [facility] Chloride 107 98 - 107 mMol/L 01/24/2024 12:53 AM [facility] Carbon Dioxide 23 22 - 31 mMol/L 01/24/2024 12:53 AM [facility] Anion Gap 9 5 - 15 mMol/L 01/24/2024 12:53 AM [facility] Calcium 7.5(L) 8.5 - 10.5 mg/dL 01/24/2024 12:53 AM [facility] Protein, Total 4.5(L) 6.1 - 8.0 g/dL 01/24/2024 12:53 AM [facility] Albumin 2.8(L) 3.2 - 5.2 g/dL 01/24/2024 12:53 AM [facility] Aspartate Aminotransferase 147(H) <=39 unit/L 01/24/2024 12:53 AM [facility] Alanine Aminotransferase 157(H) 0 - 55 unit/L 01/24/2024 12:53 AM EST [facility] Alkaline Phosphatase 159(H) 40 - 130 unit/L 01/24/2024 12:53 AM [facility] Bilirubin, Total 1.5(H) <=1.3 mg/dL 01/24/2024 12:53 AM [facility] Est Glomerular Filtration Rate - Male 96 mL/min/1. 73 m?? 01/24/2024 12:53 AM EST [facility] Comment: This patient's estimated [...] MD CHEMISTRY ORDERABL ES Performing Organization Address City/State/[facility] Co de Phone Number [facility] [place] [address] * (ABNORMAL) CBC (with Diff) (01/24/2024 12:01 AM EST) White Blood Cell 7.86 4.00 - 9.50 x10(3)/mc L 01/24/2024 12:31 AM EST [facility] Red Blood Cell 3.42(L) 4.58 - 5.54 x10(6)/mc L 01/24/2024 12:31 AM EST [facility] Hemoglobin 10.5(L) 13.7 - 16.5 g/dL 01/24/2024 12:31 AM [facility] Hematocrit 30.9(L) 40.5 - 48.5 % 01/24/2024 12:31 AM [facility] Mean Cell Volume 90.4 82.9 - 93.1 fL 01/24/2024 12:31 AM [facility] Mean Cell Hemoglobin 30.7 27.5 - 32.1 pg 01/24/2024 12:31 AM [facility] Mean Cell Hemoglobin Concentration 34.0 32.0 - 35.7 g/dL 01/24/2024 12:31 AM [facility] Platelet 147 145 - 357 x10(3)/mc L 01/24/2024 12:31 AM [facility] Mean Platelet Volume 9.7 7.6 - 12.9 fL 01/24/2024 12:31 AM [facility] RDW Standard Deviation 51.5(H) 36.0 - 45.0 fL 01/24/2024 12:31 AM [facility] RDW coefficient of variation 15.9(H) 11.4 - 13.8 % 01/24/2024 12:31 AM [facility] NRBC% auto 0.0 % 01/24/2024 12:31 AM [facility] NRBC Absolute <0.01 <0.01 x10(3)/mc L 01/24/2024 12:31 AM [facility] Neutrophil % 79.1 % 01/24/2024 12:31 AM [facility] Neutrophil Absolute (ANC) - Automated 6.22(H) 1.70 - 6.10 x10(3)/mc L 01/24/2024 12:31 AM [facility] Lymph % 10.8 % 01/24/2024 12:31 AM [facility] Lymph Absolute 0.85(L) 0.90 - 3.20 x10(3)/mc L 01/24/2024 12:31 AM [facility] Monocyte % 8.3 % 01/24/2024 12:31 AM EST [facility] Monocyte Absolute 0.65 0.30 - 0.90 x10(3)/mc L 01/24/2024 12:31 AM [facility] Eos % 0.8 % 01/24/2024 12:31 AM [facility] Eos Absolute 0.06 0.00 - 0.40 x10(3)/mc L 01/24/2024 12:31 AM EST [facility] Basophil % 0.4 % 01/24/2024 12:31 AM [facility] Baso Absolute <0.04 0.00 - 0.10 x10(3)/mc L 01/24/2024 12:31 AM [facility] Immature Gran % 0.6 % 12:31 AM [facility] Immature Gran Absolute 0.05(H) 0.00 - 0.04 x10(3)/mc L 01/24/2024 12:31 AM [facility] Blood VENOUS BLOOD SPECIMEN / Unknown Arterial / Unknown 01/24/2024 12:01 AM EST 01/24/2024 12:23 AM EST Tor Balbuena MD HEMATOLOGY ORDERAB LES [facility] [place] [address] * (ABNORMAL) Amylase (01/24/2024 12:01 AM EST) Amylase 16(L) 28 - 100 unit/L 01/24/2024 12:53 AM EST [facility] Blood VENOUS BLOOD SPECIMEN / Unknown Arterial / Unknown 01/24/2024 12:01 AM EST 01/24/2024 12:23 AM EST Tor Balbuena MD CHEMISTRY ORDERABL ES [facility] [place] [address] * (ABNORMAL) Blood Gas, Arterial POC (01/23/2024 6:59 PM EST) pH, Arterial 7.37 7.35 - 7.45 01/24/2024 6:32 AM [facility] PCO2, Arterial 39 35 - 45 mmHg 01/24/2024 6:32 AM [facility] PO2, Arterial 133(H) 85 - 104 mmHg 01/24/2024 6:32 AM [facility] Bicarbonate, Arterial 21.7 20.0 - 26.0 mmol/L 01/24/2024 6:32 AM [facility] Base Excess, Arterial -3.6(L) -3.0 - 3.0 mmol/L 01/24/2024 6:32 AM [facility] Hemoglobin, Arterial 10.4(L) 13.7 - 16.5 g/dL 01/24/2024 6:32 AM [facility] Oxyhemoglobin, Arterial 96.0 94.0 - 97.0 % 01/24/2024 6:32 AM [facility] Carboxyhemoglobin , Arterial 0.3 % 01/24/2024 6:32 AM [facility] Comment: Nonsmokers: 0.5-1.5% COHB ?? Smokers: Variable ??but usually less than 10% ?? Toxic: 20-30% COHB ?? Lethal: Greater than 60% COHB Methemoglobin, Arterial 0.3 <=1.5 % 01/24/2024 6:32 AM [facility] Sodium, Arterial 135 135 - 145 mmol/L 01/24/2024 6:32 AM [facility] Potassium, Arterial 3.8 3.5 - 5.0 mmol/L 01/24/2024 6:32 AM [facility] Chloride, Arterial 105 98 - 107 mmol/L 01/24/2024 6:32 AM [facility] Lactate, Arterial 1.3 0.5 - 2.2 mmol/L 01/24/2024 6:32 AM [facility] IONIZED CALCIUM, ARTERIAL 1.08(L) 1.15 - 1.33 mmol/L 01/24/2024 6:32 AM EST [facility] Glucose, Arterial 116 65 - 199 mg/dL 01/24/2024 6:32 AM EST [facility] Comment:Glucose Concentratio n >=200 mg/dL plus symptoms is consistent with Diabetes Mellitus. Blood ARTERIAL BLOOD / Unknown 01/23/2024 6:59 PM EST 01/24/2024 6:32 AM EST Tor Balbuena MD POINT OF CARE TEST ORDERABLES Performing Organization Address [facility]/ZIP Co de Phone Number [facility] [place] [address] * POC, GLUCOSE (01/23/2024 6:56 PM EST) Glucometer, POC 131 65 - 199 mg/dL 01/23/2024 6:56 PM EST [facility] Comment:Supplemental ranges: <140 mg/dL before meals <180 mg/dL all other times of the day. Blood CAPILLARY BLOOD / Unknown 01/23/2024 6:56 PM EST 01/23/2024 6:56 PM EST Tor Balbuena MD POINT OF CARE TEST ORDERABLES Performing Organization Address City/[facility]/ZIP Co de Phone Number [facility] [place] [address] * Fibrinogen (01/23/2024 5:06 PM EST) Fibrinogen 242 200 - 393 mg/dL 01/23/2024 5:53 PM EST [facility] Comment: A fibrinogen level >100 mg/dL is adequate for hemostasis in most patients without underlying bleeding disorders. Blood VENOUS BLOOD SPECIMEN / Unknown Venipuncture / Unknown 01/23/2024 5:06 PM EST 01/23/2024 5:19 PM EST Tor Balbuena MD HEMATOLOGY ORDERAB LES Performing Organization Address [facility] Co de Phone Number [facility] [place] [address] * APTT (01/23/2024 5:06 PM EST) Partial Thromboplastin Time 26 25 - 37 sec 01/23/2024 5:53 PM EST [facility] Comment: The PTT is NOT appropriate for heparin monitoring. Use the Anti-Xa level for heparin monitoring (HEP UFH) or LMWH monitoring (HEP LMW). A PTT less than 37 seconds generally indicates adequate hemostasis. Blood VENOUS BLOOD SPECIMEN / Unknown Venipuncture / Unknown 01/23/2024 5:06 PM EST 01/23/2024 5:19 PM EST Tor Balbuena MD HEMATOLOGY ORDERAB LES Performing Organization Address [facility] de Phone Number [facility] [place] [address] * (ABNORMAL) Prothrombin Time (01/23/2024 5:06 PM EST) Prothrombin Time 12.7(H) 9.4 - 12.5 sec 01/23/2024 5:53 PM EST [facility] International Normalization Ratio 1.1 <=4.9 01/23/2024 5:53 PM EST [facility] Comment: An INR < [...] MD HEMATOLOGY ORDERAB LES Performing Organization Address [facility] Co de Phone Number [facility] [place] [address] * Phosphorus (01/23/2024 5:06 PM EST) Pathologist [facility] [place] Phosphorus 3.9 2.5 - 4.5 mg/dL 01/23/2024 5:59 PM EST [facility] Blood VENOUS BLOOD SPECIMEN / Unknown Venipuncture / Unknown 01/23/2024 5:06 PM EST 01/23/2024 5:19 PM EST Tor Balbuena MD CHEMISTRY ORDERABL ES Performing Organization Address City/[facility]/ZIP Co de Phone Number [facility] [place] [address] * Magnesium (01/23/2024 5:06 PM EST) [facility] Magnesium 0.80 0.69 - 1.07 mMol/L 01/23/2024 5:59 PM EST [facility] Blood VENOUS BLOOD SPECIMEN / Unknown Venipuncture / Unknown 01/23/2024 5:06 PM EST 01/23/2024 5:19 PM EST Tor Balbuena MD CHEMISTRY ORDERABL ES Performing Organization Address City/[facility]/ZIP Co de Phone Number [facility] [place] [address] * (ABNORMAL) Comprehensive metabolic panel (01/23/2024 5:06 PM EST) Pathologist [facility] [place] Glucose 158 65 - 199 mg/dL 01/23/2024 5:59 PM EST [facility] Comment:Glucose Concentratio n >=200 mg/dL plus symptoms is consistent with Diabetes Mellitus. Blood Urea Nitrogen 16 10 - 20 mg/dL 01/23/2024 5:59 PM EST [facility] Creatinine 0.62(L) 0.80 - 1.50 mg/dL 01/23/2024 5:59 PM EST [facility] Sodium 139 135 - 145 mMol/L 01/23/2024 5:59 PM EST [facility] Potassium 4.4 3.5 - 5.0 mMol/L 01/23/2024 5:59 PM [facility] Chloride 105 98 - 107 mMol/L 01/23/2024 5:59 PM [facility] Carbon Dioxide 22 22 - 31 mMol/L 01/23/2024 5:59 PM [facility] Anion Gap 12 5 - 15 mMol/L 01/23/2024 5:59 PM [facility] Calcium 7.9(L) 8.5 - 10.5 mg/dL 01/23/2024 5:59 PM [facility] Protein, Total 4.5(L) 6.1 - 8.0 g/dL 01/23/2024 5:59 PM [facility] Albumin 3.0(L) 3.2 - 5.2 g/dL 01/23/2024 5:59 PM [facility] Aspartate Aminotransferase 232(H) <=39 unit/L 01/23/2024 5:59 PM [facility] Alanine Aminotransferase 167(H) 0 - 55 unit/L 01/23/2024 5:59 PM [facility] Alkaline Phosphatase 188(H) 40 - 130 unit/L 01/23/2024 5:59 PM [facility] Bilirubin, Total 1.5(H) <=1.3 mg/dL 01/23/2024 5:59 PM [facility] Est Glomerular Filtration Rate - Male 100 mL/min/1. 73 m?? 01/23/2024 5:59 PM [facility] Comment: This patient's estimated GFR [...] EST Tor Balbuena MD CHEMISTRY ORDERABL ES [facility] [place] [address] * (ABNORMAL) CBC (with Diff) (01/23/2024 5:06 PM EST) White Blood Cell 5.19 4.00 - 9.50 x10(3)/mc L 01/23/2024 5:36 PM EST [facility] Red Blood Cell 3.50(L) 4.58 - 5.54 x10(6)/mc L 01/23/2024 5:36 PM EST [facility] Hemoglobin 10.8(L) 13.7 - 16.5 g/dL 01/23/2024 5:36 PM EST [facility] Hematocrit 31.9(L) 40.5 - 48.5 % 01/23/2024 5:36 PM [facility] Mean Cell Volume 91.1 82.9 - 93.1 fL 01/23/2024 5:36 PM [facility] Mean Cell Hemoglobin 30.9 27.5 - 32.1 pg 01/23/2024 5:36 PM [facility] Mean Cell Hemoglobin Concentration 33.9 32.0 - 35.7 g/dL 01/23/2024 5:36 PM EST [facility] Platelet 116(L) 145 - 357 x10(3)/mc L 01/23/2024 5:36 PM [facility] Mean Platelet Volume 9.9 7.6 - 12.9 fL 01/23/2024 5:36 PM [facility] RDW Standard Deviation 49.3(H) 36.0 - 45.0 fL 01/23/2024 5:36 PM [facility] RDW coefficient of variation 14.9(H) 11.4 - 13.8 % 01/23/2024 5:36 PM [facility] NRBC% auto 0.0 % 01/23/2024 5:36 PM [facility] NRBC Absolute <0.01 <0.01 x10(3)/mc L 01/23/2024 5:36 PM [facility] Neutrophil % 81.3 % 01/23/2024 5:36 PM [facility] Neutrophil Absolute (ANC) - Automated 4.22 1.70 - 6.10 x10(3)/mc L 01/23/2024 5:36 PM [facility] Lymph % 9.4 % 01/23/2024 5:36 PM [facility] Lymph Absolute 0.49(L) 0.90 - 3.20 x10(3)/mc L 01/23/2024 5:36 PM [facility] Monocyte % 8.5 % 01/23/2024 5:36 PM [facility] Monocyte Absolute 0.44 0.30 - 0.90 x10(3)/mc L 01/23/2024 5:36 PM [facility] Eos % 0.2 % 01/23/2024 5:36 PM [facility] Eos Absolute <0.04 0.00 - 0.40 x10(3)/mc L 01/23/2024 5:36 PM [facility] Basophil % 0.4 % 01/23/2024 5:36 PM [facility] Baso Absolute <0.04 0.00 - 0.10 x10(3)/mc L 01/23/2024 5:36 PM [facility] Immature Gran % 0.2 % 5:36 PM [facility] Immature Gran Absolute <0.04 0.00 - 0.04 x10(3)/mc L 01/23/2024 5:36 PM [facility] Blood VENOUS BLOOD SPECIMEN / Unknown Venipuncture / Unknown 01/23/2024 5:06 PM EST 01/23/2024 5:18 PM EST Tor Balbuena MD HEMATOLOGY ORDERAB LES [facility] [place] [address] * (ABNORMAL) Hemoglobin A1c (01/23/2024 5:06 PM EST) Hemoglobin A1c 7.0(H) 4.3 - 5.6 % 01/23/2024 5:49 PM EST [facility] Comment: Per ADA guidelines, [...] red blood cell turnover may not be artist's representative of glycemic control. Reference Interval: 4.3 - 5.6% 5.7 - 6.4%: Consistent with prediabetes >=6.5%: Consistent with diagnosis of diabetes mellitus Estimated Average Glucose 01/23/2024 5:49 PM EST [facility] Comment:Estimated Average Gl ucose not appropriate for patients over 70 years of age. Blood VENOUS BLOOD SPECIMEN / Unknown Venipuncture / Unknown 01/23/2024 5:06 PM EST 01/23/2024 5:18 PM EST Narrative [facility] - 01/23/2024 5:49 PM EST Estimated average glucose (eAG) is calculated from the equation described in: César SAMPSON, Steven J, Soto R, et al. ??Translating the A1C assay into estimated average glucose values. ??Diabetes Care 2008:31(8):6121-8557. Additional resources are available on the ADA website (diabetes.org). Tor Balbuena MD CHEMISTRY ORDERABL ES [facility] [place] [address] * POC, GLUCOSE (01/23/2024 5:02 PM EST) Glucometer, POC 162 65 - 199 mg/dL 01/23/2024 5:03 PM EST [facility] Comment:Supplemental ranges: <140 mg/dL before meals <180 mg/dL all other times of the day. Blood CAPILLARY BLOOD / Unknown 01/23/2024 5:02 PM EST 01/23/2024 5:03 PM EST Tor Balbuena MD POINT OF CARE TEST ORDERABLES Performing Organization Address City/[facility]/ZIP Co de Phone Number [facility] [place] [address] * (ABNORMAL) Blood Gas, Arterial POC (01/23/2024 3:20 PM EST) [facility] pH, Arterial 7.38 7.35 - 7.45 01/23/2024 3:21 PM [facility] PCO2, Arterial 41 35 - 45 mmHg 01/23/2024 3:21 PM [facility] PO2, Arterial 215(H) 85 - 104 mmHg 01/23/2024 3:21 PM [facility] Bicarbonate, Arterial 23.7 20.0 - 26.0 mmol/L 01/23/2024 3:21 PM [facility] Base Excess, Arterial -1.4 -3.0 - 3.0 mmol/L 01/23/2024 3:21 PM [facility] Hemoglobin, Arterial 9.2(L) 13.7 - 16.5 g/dL 01/23/2024 3:21 PM [facility] Oxyhemoglobin, Arterial 96.6 94.0 - 97.0 % 01/23/2024 3:21 PM [facility] Carboxyhemoglobin , Arterial 0.3 % 01/23/2024 3:21 PM [facility] Comment: Nonsmokers: 0.5-1.5% COHB ?? Smokers: Variable ??but usually less than 10% ?? Toxic: 20-30% COHB ?? Lethal: Greater than 60% COHB Methemoglobin, Arterial 0.3 <=1.5 % 01/23/2024 3:21 PM EST [facility] Sodium, Arterial 134(L) 135 - 145 mmol/L 01/23/2024 3:21 PM EST [facility] Potassium, Arterial 4.0 3.5 - 5.0 mmol/L 01/23/2024 3:21 PM [facility] Chloride, Arterial 105 98 - 107 mmol/L 01/23/2024 3:21 PM [facility] Lactate, Arterial 1.5 0.5 - 2.2 mmol/L 01/23/2024 3:21 PM [facility] IONIZED CALCIUM, ARTERIAL 1.13(L) 1.15 - 1.33 mmol/L 01/23/2024 3:21 PM [facility] Glucose, Arterial 164 65 - 199 mg/dL 01/23/2024 3:21 PM [facility] Comment:Glucose Concentratio n >=200 mg/dL plus symptoms is consistent with Diabetes Mellitus. Blood ARTERIAL BLOOD / Unknown 01/23/2024 3:20 PM EST 01/23/2024 3:21 PM EST Tor Balbuena MD POINT OF CARE TEST ORDERABLES [facility] [place] [address] * (ABNORMAL) Blood Gas, Arterial POC (01/23/2024 2:04 PM EST) pH, Arterial 7.33(L) 7.35 - 7.45 01/23/2024 2:05 PM EST [facility] PH Corrected, Arterial 7.33(L) 7.35 - 7.45 01/23/2024 2:05 PM EST [facility] PCO2, Arterial 39 35 - 45 mmHg 01/23/2024 2:05 PM [facility] PCO2 Corrected, Arterial 39 35 - 45 mmHg 01/23/2024 2:05 PM [facility] PO2, Arterial 195(H) 85 - 104 mmHg 01/23/2024 2:05 PM [facility] PO2 Corrected, Arterial 194.9(H) 85 - 104 mmHg 01/23/2024 2:05 PM [facility] Bicarbonate, Arterial 20.3 20.0 - 26.0 mmol/L 01/23/2024 2:05 PM [facility] Base Excess, Arterial -5.6(L) -3.0 - 3.0 mmol/L 01/23/2024 2:05 PM [facility] Hemoglobin, Arterial 9.9(L) 13.7 - 16.5 g/dL 01/23/2024 2:05 PM [facility] Oxyhemoglobin, Arterial 96.9 94.0 - 97.0 % 01/23/2024 2:05 PM [facility] Carboxyhemoglobin , Arterial 0.2 % 01/23/2024 2:05 PM [facility] Comment: Nonsmokers: 0.5-1.5% COHB ?? Smokers: Variable ??but usually less than 10% ?? Toxic: 20-30% COHB ?? Lethal: Greater than 60% COHB Methemoglobin, Arterial 0.3 <=1.5 % 01/23/2024 2:05 PM [facility] Sodium, Arterial 134(L) 135 - 145 mmol/L 01/23/2024 2:05 PM [facility] Potassium, Arterial 4.0 3.5 - 5.0 mmol/L 01/23/2024 2:05 PM [facility] Chloride, Arterial 106 98 - 107 mmol/L 01/23/2024 2:05 PM [facility] Lactate, Arterial 1.8 0.5 - 2.2 mmol/L 01/23/2024 2:05 PM [facility] Fraction of Inspired Oxygen 49 % 01/23/2024 2:05 PM [facility] Flow Rate 0.7 L/min 01/23/2024 2:05 PM [facility] PF Ratio 398 Ratio 01/23/2024 2:05 PM [facility] [facility] Comment:PF ratio calculated using the non-temperature corrected pO2 result. Patient Temperature 36.9 C 01/23/2024 2:05 PM [facility] IONIZED CALCIUM, ARTERIAL 1.10(L) 1.15 - 1.33 mmol/L 01/23/2024 2:05 PM [facility] Glucose, Arterial 196 65 - 199 mg/dL 01/23/2024 2:05 PM [facility] Comment:Glucose Concentratio n >=200 mg/dL plus symptoms is consistent with Diabetes Mellitus. Blood ARTERIAL BLOOD / Unknown 01/23/2024 2:04 PM EST 01/23/2024 2:05 PM EST Tor Balbuena MD POINT OF CARE TEST ORDERABLES [facility] [place] [address] * (ABNORMAL) Blood Gas, Arterial POC (01/23/2024 12:34 PM EST) pH, Arterial 7.39 7.35 - 7.45 01/23/2024 12:35 PM [facility] PH Corrected, Arterial 7.40 7.35 - 7.45 01/23/2024 12:35 PM [facility] PCO2, Arterial 41 35 - 45 mmHg 01/23/2024 12:35 PM [facility] PCO2 Corrected, Arterial 40 35 - 45 mmHg 01/23/2024 12:35 PM [facility] PO2, Arterial 221(H) 85 - 104 mmHg 01/23/2024 12:35 PM [facility] PO2 Corrected, Arterial 217.3(H) 85 - 104 mmHg 01/23/2024 12:35 PM [facility] Bicarbonate, Arterial 24.3 20.0 - 26.0 mmol/L 01/23/2024 12:35 PM [facility] Base Excess, Arterial -0.7 -3.0 - 3.0 mmol/L 01/23/2024 12:35 PM [facility] Hemoglobin, Arterial 11.0(L) 13.7 - 16.5 g/dL 01/23/2024 12:35 PM [facility] Oxyhemoglobin, Arterial 95.9 94.0 - 97.0 % 01/23/2024 12:35 PM [facility] Carboxyhemoglobin , Arterial 0.3 % 01/23/2024 12:35 PM [facility] Comment: Nonsmokers: 0.5-1.5% COHB ?? Smokers: Variable ??but usually less than 10% ?? Toxic: 20-30% COHB ?? Lethal: Greater than 60% COHB Methemoglobin, Arterial 0.3 <=1.5 % 01/23/2024 12:35 PM [facility] Sodium, Arterial 138 135 - 145 mmol/L 01/23/2024 12:35 PM [facility] Potassium, Arterial 3.4(L) 3.5 - 5.0 mmol/L 01/23/2024 12:35 PM [facility] Chloride, Arterial 104 98 - 107 mmol/L 01/23/2024 12:35 PM [facility] Lactate, Arterial 1.4 0.5 - 2.2 mmol/L 01/23/2024 12:35 PM [facility] Fraction of Inspired Oxygen 50 % 01/23/2024 12:35 PM [facility] Flow Rate 0.7 L/min 01/23/2024 12:35 PM [facility] PF Ratio 442 Ratio 01/23/2024 12:35 PM [facility] Comment:PF ratio calculated using the non-temperature corrected pO2 result. Patient Temperature 36.3 C 01/23/2024 12:35 PM EST [facility] IONIZED CALCIUM, ARTERIAL 1.16 1.15 - 1.33 mmol/L 01/23/2024 12:35 PM EST [facility] Glucose, Arterial 154 65 - 199 mg/dL 01/23/2024 12:35 PM EST [facility] Comment:Glucose Concentratio n >=200 mg/dL plus symptoms is consistent with Diabetes Mellitus. Blood ARTERIAL BLOOD / Unknown 01/23/2024 12:34 PM EST 01/23/2024 12:35 PM EST Tor Balbuena MD POINT OF CARE TEST ORDERABLES Performing Organization Address [facility] Co de Phone Number [facility] [place] [address] * POC, GLUCOSE (01/23/2024 11:47 AM EST) Glucometer, POC 156 65 - 199 mg/dL 01/23/2024 11:53 AM EST [facility] Comment:Supplemental ranges: <140 mg/dL before meals <180 mg/dL all other times of the day. Blood CAPILLARY BLOOD / Unknown 01/23/2024 11:47 AM EST 01/23/2024 11:53 AM EST Tor Balbuena MD POINT OF CARE TEST ORDERABLES Performing Organization Address [facility] Co de Phone Number [facility] [place] [address] * (ABNORMAL) Surgical Pathology (01/23/2024 11:16 AM EST) Case Report Surgical Pathology Report ? Case: [id number] ? Authorizing Provider: ??Tor Balbuena MD ?Collected: ? 01/23/2024 1116 ? Ordering Location: ? Main Operating Room [facility] ?? Received: ?01/23/2024 1403 ? [facility] ? Hospital ? Pathologist: ? Li Lynne MD ? Specimens: ?? A) - Lymph Node, Gastric, common hepatic artery lymph node ? B) - Pancreas, head of pancreas, duodenum, bile duct, gallbladder, antrum ? 4 2:36 PM EST [facility] Final Diagnosis A. Lymph Node: Lymph node, negative for carcinoma (0/1). B. Pancreas, head of pancreas, duodenum, bile duct, gallbladder, antrum Excision: Residual invasive pancreatic ductal carcinoma, see Synoptic Report below. Gallbladder, negative for carcinoma. Omentum with fibrosis, negative for carcinoma. 4 2:36 PM EST [facility] Synoptic Report PANCREAS (EXOCRINE) PANCREAS (EXOCRINE) [...] (PanIN) (highest grade): PanIN3 4 2:36 PM [facility] Discussion The case was reviewe d at the GI pathology consensus conference. 4 2:36 PM [facility] Additional Studies Task ID IHC/Special Stains Result B22-2 CKAE1/3 Reviewed for diagnosis B31-2 CKAE1/3 Reviewed for diagnosis B32-2 CKAE1/3 Reviewed for diagnosis 4 2:36 PM [facility] Disclaimer(s) Formalin-fixed, paraffin-embedded tissue sections [...] and other diagnostic tests. 4 2:36 PM [facility] Clinical Information A. Lymph Node, common hepatic artery lymph node *Other - as specified in Clinical Information Pancreas cancer, common hepatic artery lymph node B. Pancreas, head of pancreas, duodenum, bile duct, gallbladder, antrum *Other - as specified in Clinical Information Pancreas cancer Yellow: pancreatic neck margin FROZEN Weber: SMA Green: bile duct margin Blue: vascular groove 4 2:36 PM [facility] Intraoperative Consultation B. Pancreas, head of pancreas, duodenum, bile duct, gallbladder, antrum. FS1 - Pancreatic neck margin: Negative for tumor. . This a preliminary intraoperative diagnosis. A final report will follow. 4 2:36 PM [facility] Gross Description A. Lymph Node, Gastric, common hepatic artery lymph node. A - Labeled/Fixative: Common hepatic artery lymph node, fresh. Quantity/Size: Single, 2.5 x 1.5 x 0.8 cm. Tissue Description: Intact mcrcary, homogeneous lymph node. Sections/Processing: Serially sectioned and [...] 13.5 cm Lesser Curvature: 7.5 cm Serosa: [place]-red, smooth and glistening. Mucosa: [place] with the usual rugal folds DUODENUM Length/Diameter: 32 x 2.5 cm Serosa: [place]-red, smooth and glistening. Mucosa: [place]-red with the usual folds slightly polypoid proximal to the ampulla.. Ampulla of Vater: Patent, with stent in place. GALLBLADDER Size: 10 x 3 x 3 cm Serosa: [place]-purple and smooth Mucosa: Lumen contents consists of [...] 2 cm ill-defined firm indurated nodular area. Vascular Radiologist sections in 37 cassettes as follows: B1: FS 1-pancreatic neck margin en face B2: Hepatic duct margin en face B3: Gastric margin en face B4: Duodenum margin en face B5: Vascular Radiologist gallbladder and cystic duct B6: Cystic duct [...] omentum lesion sns 4 2:36 PM EST [facility] Result Note THIS RESULT REQUIRES PHYSICIAN/IDANIA FOLLOW UP(A) 4 2:36 PM EST [facility] Tissue STRUCTURE OF LEFT GASTRIC LYMPH NODE / Unknown 01/23/2024 11:16 AM EST 01/23/2024 2:03 PM EST Comment:Pancreas cancer, com mon hepatic artery lymph node Tissue specimen (specimen) PANCREATIC STRUCTURE / Unknown 01/23/2024 12:47 PM EST 01/23/2024 1:55 PM EST Comment:Pancreas cancer Yellow: pancreatic neck margin FROZEN Weber: SMA Green: bile duct margin Blue: vascular groove Tor Balbuena MD PATHOLOGY/CYTOLOGY ORDERABLES Performing Organization Address City/State/[facility] Co de Phone Number [facility] [place] [address] * (ABNORMAL) Anaerobic Culture (01/23/2024 10:54 AM EST) Anaerobic Culture Rare Bacteroides fragilis group(A) VITEK 2 METHOD 01/27/2024 3:01 PM EST [facility] Tissue BILE DUCT STRUCTURE / Unknown 01/23/2024 10:54 AM EST Comment:Pancreatic cancer Tor Balbuena MD MICROBIOLOGY - GEN ERAL ORDERABLES [facility] [place] [address] * Tissue Culture, Aerobic Only (01/23/2024 10:54 AM EST) Tissue Culture No growth 01/27/2024 11:01 AM [facility] Gram Stain No neutrophils seen 01/27/2024 11:01 AM [facility] Gram Stain No microorganisms seen 01/27/2024 11:01 AM [facility] Tissue BILE DUCT STRUCTURE / Unknown 01/23/2024 10:54 AM EST Comment:Pancreatic cancer Tor Balbuena MD MICROBIOLOGY - GEN ERAL ORDERABLES Performing Organization Address City/[facility]/ZIP Co de Phone Number [facility] [place] [address] * (ABNORMAL) Blood Gas, Arterial POC (01/23/2024 10:43 AM EST) pH, Arterial 7.43 7.35 - 7.45 01/23/2024 10:44 AM [facility] PH Corrected, Arterial 7.45 7.35 - 7.45 01/23/2024 10:44 AM [facility] PCO2, Arterial 41 35 - 45 mmHg 01/23/2024 10:44 AM [facility] PCO2 Corrected, Arterial 39 35 - 45 mmHg 01/23/2024 10:44 AM [facility] PO2, Arterial 233(H) 85 - 104 mmHg 01/23/2024 10:44 AM [facility] PO2 Corrected, Arterial 226.0(H) 85 - 104 mmHg 01/23/2024 10:44 AM [facility] Bicarbonate, Arterial 26.6(H) 20.0 - 26.0 mmol/L 01/23/2024 10:44 AM [facility] Base Excess, Arterial 2.3 -3.0 - 3.0 mmol/L 01/23/2024 10:44 AM [facility] Hemoglobin, Arterial 11.6(L) 13.7 - 16.5 g/dL 01/23/2024 10:44 AM [facility] Oxyhemoglobin, Arterial 96.1 94.0 - 97.0 % 01/23/2024 10:44 AM [facility] Carboxyhemoglobin , Arterial 0.2 % 01/23/2024 10:44 AM [facility] Comment: Nonsmokers: 0.5-1.5% COHB ?? Smokers: Variable ??but usually less than 10% ?? Toxic: 20-30% COHB ?? Lethal: Greater than 60% COHB Methemoglobin, Arterial 0.2 <=1.5 % 01/23/2024 10:44 AM [facility] Sodium, Arterial 136 135 - 145 mmol/L 01/23/2024 10:44 AM [facility] Potassium, Arterial 3.4(L) 3.5 - 5.0 mmol/L 01/23/2024 10:44 AM [facility] Chloride, Arterial 103 98 - 107 mmol/L 01/23/2024 10:44 AM [facility] Lactate, Arterial 1.3 0.5 - 2.2 mmol/L 01/23/2024 10:44 AM [facility] Fraction of Inspired Oxygen 50 % 01/23/2024 10:44 AM [facility] Flow Rate 0.6 L/min 01/23/2024 10:44 AM [facility] PF Ratio 466 Ratio 01/23/2024 10:44 AM [facility] Comment:PF ratio calculated using the non-temperature corrected pO2 result. Patient Temperature 35.6 C 01/23/2024 10:44 AM [facility] IONIZED CALCIUM, ARTERIAL 1.08(L) 1.15 - 1.33 mmol/L 01/23/2024 10:44 AM [facility] Glucose, Arterial 193 65 - 199 mg/dL 01/23/2024 10:44 AM EST [facility] Comment:Glucose Concentratio n >=200 mg/dL plus symptoms is consistent with Diabetes Mellitus. Blood ARTERIAL BLOOD / Unknown 01/23/2024 10:43 AM EST 01/23/2024 10:44 AM EST Tor Balbuena MD POINT OF CARE TEST ORDERABLES Performing Organization Address City/[facility]/ZIP Co de Phone Number [facility] [place] [address] * POC, GLUCOSE (01/23/2024 9:27 AM EST) Glucometer, POC 194 65 - 199 mg/dL 01/23/2024 9:27 AM EST [facility] Comment:Supplemental ranges: <140 mg/dL before meals <180 mg/dL all other times of the day. Blood CAPILLARY BLOOD / Unknown 01/23/2024 9:27 AM EST 01/23/2024 9:27 AM EST Tor Balbuena MD POINT OF CARE TEST ORDERABLES Performing Organization Address City/[facility]/ZIP Co de Phone Number [facility] [place] [address] * ABORH RECHECK (PATIENT HISTORY FOUND) (01/23/2024 8:51 AM EST) ABORH Recheck Progress Complete 01/23/2024 11:01 AM EST [facility] Blood VENOUS BLOOD SPECIMEN / Unknown 01/23/2024 8:51 AM EST 01/23/2024 9:07 AM EST Tor Balbuena MD BLOOD BANK LAB ORD ERABLES Performing Organization Address City/[facility]/ZIP Co de Phone Number [facility] [place] [address] * Type and screen ([facility]) (01/23/2024 8:51 AM EST) ABORH Type O POSITIVE 01/23/2024 10:26 AM EST [facility] PATIENT HISTORY Found 01/23/2024 10:26 AM EST [facility] Expires at [id number] on: 2024 01/23/2024 10:26 AM EST [facility] ANTIBODY SCREEN AUTOMATED Negative 01/23/2024 10:26 AM EST [facility] T&S only valid at [facility] 01/23/2024 10:26 AM EST [facility] Blood VENOUS BLOOD SPECIMEN / Unknown 01/23/2024 8:51 AM EST 01/23/2024 9:07 AM EST Comment:Pre-op diagnosis: PANCREAS CANCER Narrative [facility] - 01/23/2024 10:26 AM EST This Type and Screen result is only valid at the [facility] Tor Balbuena MD BLOOD BANK LAB ORD ERABLES [facility] [place] [address] * (ABNORMAL) Blood Gas, Arterial POC (01/23/2024 8:28 AM EST) pH, Arterial 7.42 7.35 - 7.45 01/23/2024 8:29 AM EST [facility] PH Corrected, Arterial 7.45 7.35 - 7.45 01/23/2024 8:29 AM EST [facility] PCO2, Arterial 36 35 - 45 mmHg 01/23/2024 8:29 AM EST [facility] PCO2 Corrected, Arterial 34(L) 35 - 45 mmHg 01/23/2024 8:29 AM EST [facility] PO2, Arterial 294(H) 85 - 104 mmHg 01/23/2024 8:29 AM EST [facility] PO2 Corrected, Arterial 286.3(H) 85 - 104 mmHg 01/23/2024 8:29 AM EST [facility] Bicarbonate, Arterial 23.0 20.0 - 26.0 mmol/L 01/23/2024 8:29 AM EST [facility] Base Excess, Arterial -1.4 -3.0 - 3.0 mmol/L 01/23/2024 8:29 AM [facility] Hemoglobin, Arterial 10.6(L) 13.7 - 16.5 g/dL 01/23/2024 8:29 AM [facility] Oxyhemoglobin, Arterial 96.2 94.0 - 97.0 % 01/23/2024 8:29 AM [facility] Carboxyhemoglobin , Arterial 0.2 % 01/23/2024 8:29 AM [facility] Comment: Nonsmokers: 0.5-1.5% COHB ?? Smokers: Variable ??but usually less than 10% ?? Toxic: 20-30% COHB ?? Lethal: Greater than 60% COHB Methemoglobin, Arterial 0.2 <=1.5 % 01/23/2024 8:29 AM [facility] Sodium, Arterial 135 135 - 145 mmol/L 01/23/2024 8:29 AM [facility] Potassium, Arterial 3.4(L) 3.5 - 5.0 mmol/L 01/23/2024 8:29 AM [facility] Chloride, Arterial 103 98 - 107 mmol/L 01/23/2024 8:29 AM [facility] Lactate, Arterial 1.2 0.5 - 2.2 mmol/L 01/23/2024 8:29 AM [facility] Fraction of Inspired Oxygen 63 % 01/23/2024 8:29 AM [facility] Flow Rate 0.7 L/min 01/23/2024 8:29 AM [facility] PF Ratio 467 Ratio 01/23/2024 8:29 AM [facility] Comment:PF ratio calculated using the non-temperature corrected pO2 result. Patient Temperature 35.4 C 01/23/2024 8:29 AM [facility] IONIZED CALCIUM, ARTERIAL 1.13(L) 1.15 - 1.33 mmol/L 01/23/2024 8:29 AM [facility] Glucose, Arterial 186 65 - 199 mg/dL 01/23/2024 8:29 AM EST [facility] Comment:Glucose Concentratio n >=200 mg/dL plus symptoms is consistent with Diabetes Mellitus. Blood ARTERIAL BLOOD / Unknown 01/23/2024 8:28 AM EST 01/23/2024 8:29 AM EST Tor Balbuena MD POINT OF CARE TEST ORDERABLES Performing Organization Address [facility] Co de Phone Number [facility] [place] [address] * XR Fluoro No Rad <1Hr - OR Use (01/23/2024 7:50 AM EST) Narrative Dicom, Auditing User - 01/23/2024 8:08 AM EST This exam is auto-finalizing. No interpretation was done. Cayetano Rodgers MD IMG FLUORO ORDERABL ES * POC, GLUCOSE (01/23/2024 6:58 AM EST) Glucometer, POC 197 65 - 199 mg/dL 01/23/2024 7:01 AM EST [facility] Comment:Supplemental ranges: <140 mg/dL before meals <180 mg/dL all other times of the day. Blood CAPILLARY BLOOD / Unknown 01/23/2024 6:58 AM EST 01/23/2024 7:01 AM EST Tor Balbuena MD POINT OF CARE TEST ORDERABLES Performing Organization Address [facility] Co de Phone Number [facility] [place] [address] documented in this encounter Visit Diagnoses Not on filedocumented in this encounter Admitting Diagnoses Diagnosis Pancreatic cancer Malignant neoplasm of pancreas, part unspecified documented in this encounter Administered Medications Inactive Administered Medications - up to 3 most recent administrations Medication Order MAR Action Action Date Dose Rate Site acetaminophen (Tylenol) tablet 975 mg 975 mg, [...] Given 01/31/2024 5:47 PM EST 975 mg amLODIPine (Norvasc) tablet 10 mg 10 [...] Given 01/30/2024 9:36 AM EST 81 mg atorvastatin (Lipitor) tablet 80 mg 80 mg, Oral, EVERY EVENING, First dose on Sat01/29/24 at 1700, Until Discontinued, Routine Given 01/31/2024 5:4 7 PM EST 80 mg Given 01/30/2024 4:26 PM EST 80 mg Given 01/29/2024 5:20 PM EST 80 mg BUPivacaine (pf) (Marcaine) (2.5 mg/mL) 0.25% injection PRN, Starting on Ammy 01/23/24 at 0912, Until Ammy 01/23/24 at 1959, Intra-Operative (Intra-Procedure), Routine Given 01/23/2024 9:12 AM EST 10 mLs 19- Surgical Site carvediloL (Coreg) [...] 01/30/2024 9:36 AM EST 25 mg dextrose 50% intravenous solution 25 g 25 [...] Given 01/29/2024 9:13 PM EST 40 mg glucagon (Glucagen) (1 mg/mL) injection solution [...] Intravenous, EVERY 6 HOURS PRN, Starting on Sat01/28/24 at 1437, Until 02/01/24 at 1452, High Blood Pressure, for SBP > 180, DBP >90 Given 01/29/2024 8:17 AM EST 10 mg insulin glargine-ygfn (Semglee) (100 unit/mL) subcutaneous [...] Given 01/31/2024 8:20 PM EST 6 Units isosorbide mononitrate CR (Imdur) tablet 30 mg 30 mg, Oral, NIGHTLY, First dose on Sat01/29/24 at 2100, Until Discontinued, DO NOT CRUSH OR OPEN, Routine Given 01/31/2024 8:16 PM EST 30 mg Given 01/30/2024 8:46 PM EST 30 mg Given 01/29/2024 9:14 PM EST 30 mg ksljvx-gbeweebf-drdlzry DR (Creon 24) 24,000-76,000 -120,000 unit per [...] Given 01/31/2024 8:17 PM EST 10 mg pantoprazole EC (Protonix) tablet 40 mg 40 mg, Oral, 2 TIMES DAILY, First dose on Sat01/29/24 at 2100, Until Discontinued Given 02/01/2024 8:51 AM EST 40 mg Given 01/31/2024 8:16 PM EST 40 mg Given 01/31/2024 8:20 AM EST 40 mg piperacillin-tazobactam (Zosyn) 3.375 g vial attach to sodium chloride 0.9% 50 mL Mini-Bag Plus 3.375 g, Intravenous, EVERY 8 HOURS, 21 doses, First dose on Sat01/27/24 at 1345, Last dose on Sat02/03/24 at 0545, Administer over 4 Hours, Warning Vesicant/Irritant Medication Per senior data analyst labeling, do not administer or Y-site with lactated ringers., Indication for (Active or Suspected): GI/Intra-abdominal New Bag 02/01/2024 5:36 AM EST 3.375 g 12.5 mL/hr New Bag 01/31/2024 8:28 PM EST 3.375 g 12.5 mL/hr New Bag 01/31/2024 2:20 PM EST 3.375 g 12.5 mL/hr sodium chloride 0.9 % (flush) (BD [...] Eye, 2 TIMES DAILY, First dose on Sat01/27/24 at 1115, Until Discontinued, Routine Given 02/01/2024 8:52 AM EST 1 drop Given 01/31/2024 8:17 PM EST 1 drop Given 01/31/2024 8:25 AM EST 1 drop documented in this encounter Active and Recently Administered Medications Times are shown in EST. Scheduled Medication Order 01/30/2024 01/31/2024 02/01/2024 acetaminophen (Tylenol) tablet 975 mg 975 mg, Oral, EVERY 6 HOURS SCHEDULED, First dose on Sat01/30/24 at 0800, Until Discontinued, Maximum dose of [...] Lilly Yi, AYE)0506 (Given - Provider: Lilly Yi RN)1217 (Given - Provider: Julisa De La O, AYE)1747 (Given - Provider: Julisa De La O RN) 0008 (Given - Provider: Jonathan Velasco, AYE)0536 (Given - Provider: Jonathan Velasco, AYE)1200 (Due) Adult TPN (Custom) (CANCELED) Central, Intravenous, [...] on Sat01/30/24 at 0900, Until Discontinued, Routine 0936 (Given [...] Discontinued, Routine 0953 (Given - Provider: Bruno Frey, AYE) 0824 (Given - Provider: Julisa De La [...] RN - Reason: See comment - Comment: duplicate)1747 (Given - Provider: Julisa De La O [...] Yi RN)0936 (Given - Provider: Bruno Frey, RN)1347 (Given - Provider: Bruno Frey, RN)1805 (Given - Provider: Bruno Frey, RN)2048 (Given - Provider: Lilly Yi RN) 0000 (Not Given - Provider: Lilly Yi RN - Reason: Order parameters not met)0511 (Given - Provider: Lilly Yi RN)0821 (Given - Provider: Julisa De La O RN)1200 (Given - Provider: Julisa De La O RN)1750 (Given - Provider: Julisa De La O RN)2020 (Given - Provider: Jonathan Velasco, AYE) 0000 (Not Given - Provider: Jonathan Velasco RN - Reason: Order parameters not met)0419 (Given - Provider: Jonathan Velasco, AYE)0854 (Given - Provider: Julisa De La O, AYE)1200 (Due) isosorbide mononitrate CR (Imdur) tablet 30 mg 30 mg, Oral, NIGHTLY, First dose on Sat01/29/24 at 2100, Until Discontinued, DO NOT CRUSH OR OPEN, Routine 2045 (Given - Provider: Lilly Yi, AYE) 2015 (Given - Provider: Jonathan Velasco, AYE) vjmbgo-lqhzizln-zwqyaph DR (Creon 24) 24,000-76,000 -120,000 unit per capsule 1 capsule 1 capsule, Oral, 3 TIMES DAILY WITH MEALS, First dose on Sat01/31/24 at 1400, Until Discontinued, Routine 1400 (Not Given - Provider: Julisa De La O RN - Reason: Patient/family refused)1747 (Given - Provider: Julisa De La O, AYE) 0851 (Given - Provider: Julisa De La O, AYE)1200 (Due) lisinopriL (Zestril) tablet 40 mg 40 mg, Oral, DAILY, First dose on Sat01/29/24 at 1145, Until Discontinued, Hold for SBP< 130mmhg, Routine 0935 (Given - Provider: Bruno Frey RN) 0820 (Given - Provider: Julisa De La O RN) 0851 (Given - Provider: Julisa De La O RN) metoclopramide (Reglan) (5 mg/mL) injection 10 mg 10 mg, Intravenous, EVERY 6 HOURS, First dose on Sat01/28/24 at 0715, Until Discontinued, Doses greater than 10mg should be diluted into 50ml NS. 0151 (Given - Provider: Lilly Yi RN)0617 (Given - Provider: Lilly Yi RN)1626 (Given - Provider: Bruno Frey RN)2046 (Given - Provider: Lilly Yi RN) 0039 (Given - Provider: Lilly Yi RN)0630 (Given - Provider: Lilly Yi RN)1415 (Given - Provider: Julisa De La O RN)2016 (Given - Provider: Jonathan Velasco RN) 0115 (Given - Provider: Jonathan Velasco RN)0851 (Given - Provider: Julisa De La O RN) pantoprazole EC (Protonix) tablet 40 mg 40 mg, Oral, 2 TIMES DAILY, First dose on Sat01/29/24 at 2100, Until Discontinued 0936 (Given - Provider: Bruno Frey RN)204 (Given - Provider: Lilly Yi, AYE) 0820 (Given - Provider: Julisa De [...] 4 Hours, Warning Vesicant/Irritant Medication Per senior data analyst labeling, do not administer or Y-site with lactated ringers., Indication for (Active or Suspected): GI/Intra-abdominal 0113 (Stopped - Provider: Lilly Yi RN)0451 (New Bag - Provider: Lilly Yi, AYE)0851 (Stopped - Provider: Bruno Frey RN)1626 (New Bag - Provider: Bruno Frey RN)202 (Stopped - Provider: Lilly Yi RN)2119 (New Bag - Provider: Lilly Yi RN) 0119 (Stopped - Provider: Lilly Yi RN)0507 (New Bag - Provider: Lilly Yi RN)0907 (Stopped - Provider: Julisa De La O RN)1420 (New Bag - Provider: Julisa De La O, AYE)1820 (Stopped - Provider: Julisa De La O RN)2027 (New Bag - Provider: Jonathan Velasco, AYE)214 (Stopped - Provider: Jonathan Velasco, AYE)214 (Canceled Entry - Provider: Jonathan Velasco RN - Reason: See comment) 0536 (New Bag - Provider: Jonathan Velasco RN)0936 (Stopped - Provider: Julisa De La O RN) sodium chloride 0.9 % (flush) (BD PosiFlush Normal Saline 0.9) flush 5 mL 5 mL, Intravenous, 2 TIMES DAILY, First dose on Ammy 01/23/24 at 2100, Until Discontinued, Recovery (Recovery-Hospital Unit), Routine 0937 (Given - Provider: Bruno Frey RN)2046 (Given - Provider: Lilly Yi RN) 0825 (Given - Provider: Julisa De La O RN)2017 (Given - Provider: Jonathan Velasco, AYE) 0852 (Given - Provider: Julisa De La O RN) tamsulosin (Flomax) capsule 0.4 mg 0.4 mg, Oral, NIGHTLY, First dose on Sat01/24/24 at 2100, Until Discontinued, DO NOT CRUSH OR CHEW, Routine 2045 (Given - Provider: Lilly Yi RN) 2015 (Given - Provider: Jonathan Velasco RN) timoloL (Timoptic) 0.5 % ophthalmic solution 1 drop 1 drop, Right Eye, 2 TIMES DAILY, First dose on 01/27/24 at 1115, Until Discontinued, Routine 09 (Given - Provider: Bruno Frey, RN)2048 (Given - Provider: Lilly Yi, RN) 08 (Given - Provider: Julisa De La O, RN)2016 (Given - Provider: Jonathan Velasco, RN) 0852 (Given - Provider: Julisa De La O, RN) PRN Medication Order 01/30/2024 01/31/2024 02/01/2024 dextrose [...] Intravenous, EVERY 6 HOURS PRN, Starting on Sat01/28/24 at 1437, Until 02/01/24 at 1452, High [...] Routine documented in this encounter Care Teams Grocery Buyer Relationship Specialty Start Date End Date Tristen Hunter MD [address] [place] [address] [place] [address] PCP - General Family Medicine 07/04/23 documented as of this encounter
--- OUTSIDE RECORDS SUMMARY | 2024-03-12 10:51 | XMS_ITS | Encounter Summary ---
Author Organization [facility] [place] [address] Care Team Providers Care Verifying Specialist Name Role Phone Tristen Hunter MD Primary Care Provider [phone] Reason for Visit * Reason Comments Follow-up Encounter Details Date Type Department Care Team (Late st Contact Info) Description 12/17/2023 2:30 PM EDT Office Visit [place] [address] Charu Balbuena MD [facility] [place] [address] Malignant neoplasm of head of pancreas Social History Tobacco Use Types Packs/Day Years Used Date Smoking Tobacco: Former Cigarettes 4 30 1 3 1992 Smokeless Tobacco: Never Alcohol Use Standard Drinks/Week Comments Yes 7 (1 standard drink = 0.6 oz pur e alcohol) [facility] Utilities Answer Date Recorded In the past 12 months has [employer], gas, oil, or water company threatened [...] in a half-way (including now)? No 06/04/2023 DH IPV Inpatient [...] Sign Reading Time Taken Comments Blood Pressure 198/79 12/17/2023 2:28 PM EDT Pulse 58 12/17/2023 2:28 PM EDT Temperature - - Respiratory Rate - - Oxygen Saturation 100% 12/17/2023 2:28 PM EDT Inhaled Oxygen Concentration - - Weight 95.7 kg (211 lb) 12/17/2023 2:28 PM EDT Height - - Body Mass Index 29.44 11/29/2023 10:20 AM EDT documented in this encounter Progress Notes * Charu Balbuena MD - 12/17/2023 2:30 PM EDT Hepatopancreatobiliary Surgical Oncology Consultation Note Date: 12/17/2023 Primary physician: Tristen Hunter MD Referring physician: Alex Hess MD Reason for evaluation: Biopsy proven borderline resectable PDAC status post 8 cycles of modified FOLFIRINOX and then SBRT. History of the present illness: Mr. Sadler is a 73 year old from [place], [place]. Dr. Hess recently presented his case to the GI tumor board on 06/18/2023 as his work[place] was [place] [facility] [place]. His history is summarized below: 73 yo, h/o multiple medical problems as above, including colon cancer (resected in 2008), prostate cancer (s/p androgen deprivation and RT), ASCVD (sp 3v CABG), PVDz s/p carotid endarterectomy, priorCVA, DM and others. 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 While in [facility], he presented with chest pain and [...] metastatic disease/disease progression on interim staging evaluation. 06/25/2023 [facility] Surgery Consult. Mauri was seen today in the surgery clinic accompanied by Amy, his significant other. He has already had his oncology consultation with Dr. Hess and we discussed hiscase at the GI tumor board. Down to [place] of the group down there felt that there was no abutment along the vessels and put him in the resectable category where as we thought that there was abutment for 90 degrees along the lateral SMA and less than 100 degree abutment on the SMV with a little bit of deformity-placed in the borderline category. He has been on pancreas enzymes and overallseems to be doing quite well. He apparently lost 40 pounds. His jaundice symptoms have nicely resolved. 06/25/2023 CA 19-9 390. 07/05/2023 laparoscopy showed no evidence of metastatic disease. 8 Moldovan Mediport was placed successfully. 07/12/2023 he initiated modified FOLFIRINOX per Dr. Hess and received 8 cycles of systemic chemotherapy. 11/27/2023 he received SBRT per Dr. Rothman receiving 50 Howard in 5 fractions. 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 can not read. can see shadows. No vision in left eye since child saavedra accident. Cancer prostate, colorectal Claudication Colon adenocarcinoma 2008 recieved chemo in [place] Coronary artery disease Coronary artery dissection CPAP [...] 0.3) performed by Charu Balbuena MD at [facility] OSC PRO ARTHROPLASTY ACETABULAR/PROX FEM PROSTC AGRFT/ALGRFT Left 10/10/2020 TOTAL HIP ARTHROPLASTY - POSTERIOR (WRVU 20.72) performed by Ismael Wu MD at [facility] MAIN OR PRO ARTHROPLASTY ACETABULAR/PROX FEM PROSTC AGRFT/ALGRFT Right 11/17/2021 TOTAL HIP ARTHROPLASTY - POSTERIOR (WRVU 20.72) performed by Ismael Wu MD at [facility] MAIN OR PRO ENDOSCOPIC US EXAM, ESOPH N/A 07/02/2023 UPPER EUS- ENDOSCOPIC ULTRASOUND (WRVU 3.47) performed by Pako Lopez MD at [facility] ENDOSCOPY PRO ERCP, W/REMOVAL STONE, TARYN/PANCR DUCTS 07/02/2023 ERCP W/REMOVAL CALCULI/DEBRIS FROM BILARY/PANCREATIC DUCT(S) (WRVU 6.63) performed by Pako Lopez MD at [facility] ENDOSCOPY PRO ERCP,DIAGNOSTIC N/A 07/02/2023 ERCP (WRVU 5.85) performed by Pako Lopez MD at [facility] ENDOSCOPY PRO EXPLORATION NOT FOLLOWED BY SURG NECK ARTERY Right 07/14/2021 @EXPLORATION NOT FOLLOWED BY SURGICAL REPAIR, ARTERY; NECK (CAROTID OR SUBCLAVIAN) (WRVU 9.19) performed by Basim Barr MD at [facility] MAIN OR PRO INSERT TUNNELED CV CATH W SUBQ PORT, AGE 3 YRS OR OLDER N/A 07/05/2023 MARIO\AMELIA.CATHETER,TUNNELED, WITH SQ PORT OR PUMP OVER 5YR (WRVU 5.79) performed by Maggi Balbuena MD at [facility] OSC PRO LAP, DIAGNOSTIC ABDOMEN N/A 07/05/2023 LAPAROSCOPY, DIAGNOSTIC, ABDOMEN (WRVU 5.14) performed by Charu Balbuena MD at [facility] OSC PRO LASER VAPORIZATION SURGERY PROSTATE, COMPLETE Midline 02/02/2021 CYSTO, LASER TURP (WRVU 12.15) performed by Cayetano Engle MD at [facility] MAIN OR PRO PLACE TRANSCATHETER STENT, CCA W EMBOLIC PROECT Right 07/14/2021 @TRANSCATH INTRAVASCULAR STENT,CAROTID,PERC,W\EMBOLIC PROT. (WRVU 18) performed by Basim Barr MD at [facility] MAIN OR Medications: qreccn-moiuvtys-cyqoeuf (Creon 24) 24,000-76,000 -120,[address] capsule tamsulosin (Flomax) 0.4 mg capsule ondansetron (Zofran) 8 mg tablet prochlorperazine (Compazine) 10 mg tablet Insulin Fiasp FlexTouch U-100 100 unit/mL (3 mL) Insulin Pen Insulin Tresiba FlexTouch U-100 100 unit/mL (3 mL) Insulin Pen chlorthalidone (Hygroton) 25 mg tablet omeprazole (PriLOSEC) [address] capsule omega 7-spd-jot-fish oil 250-350-1,000 mg Capsule amLODIPine (Norvasc) 10 mg Tablet carvediloL (Coreg) 25 mg Tablet lisinopriL (Zestril) 40 mg Tablet timoloL (Timoptic) 0.5 % Drops erythromycin (Romycin) 5 mg/gram (0.5 %) Ointment folic acid (Folvite) 1 mg Tablet isosorbide mononitrate CR (Imdur) 30 mg Tablet Sustained Release 24 hr atorvastatin (Lipitor) 80 mg Tablet aspirin EC 81 mg Tablet, Delayed Release (E.C.) No current facility-administered medications for this visit. He is now on Tresiba insulin 38 units in the am and is on a Fiasp insulin sliding. He has a CGM anduses Seri on his i-phone. Allergies: Allergies Allergen Reactions Belinostat Other (See [...] procedure at [facility] in [place]: shaking Has tolerated MRI and CT contrast. Pazopanib Other (See Comments) UGT1A1 Poor Metabolizer. See Clinical Pharmacist Note from 07/04/23 for information. Sacituzumab Govitecan-Hziy Other (See Comments) UGT1A1 Poor Metabolizer. See Clinical Pharmacist Note from 07/04/23 for dosing recommendations. Physical Examination: Vital signs: 12/17/2023 he weighed 211 pounds. 06/07/2019 183 pounds. Back on July 2022 [...] No peripheral edema bilaterally. Assessment and plans: Mauri was seen back in the surgery clinic today after he completed SBRT with Dr. Rothman back on 11/27/2023. We reviewed the imaging. He has had a really nice response to his CA 19-9which was down to 41.6 (it was 390 at the time of diagnosis). The CT shows a nice response in the primary tumor. There is still a little bit of abutment along the SMV. I think he has had a really nice treatment effect and we discussed a plan to proceed with the Whipple surgery. Much of today's appoint was spent discussing the Whipple surgery in greater detail-the anatomic rationale, potential complications and expected recovery. Surgery is tentatively scheduled for 01/23/2024. He takes up to four Creon24 with his meals- roughly 12 a day. He knows he will be on Creon for approximately 6 months after the Whipple surgery. He is now on Tresiba insulin 38 units in the am and pritesh a Fiasp insulin sliding. He has a CGM and uses Marianna on his i-phone which has been very helpful with him as he is essentially blind and he can communicate via Marianna to understand his blood sugars for example. Roberto Balbuena MD documented in this encounter Plan of Treatment Upcoming Encounters Date Type Department Care Team (Late st Contact Info) Description 03/24/2024 9:00 AM EST TH Visit (TeleHealth) Radiation Oncology at [address] [phone] Ping Moore PA [facility] [place] [address] 03/26/2024 9:30 AM EST Office Visit Hematology/Oncology at [address] [phone] Yessi Renee APRN [address] [place] [address] DR HEMATOLOGY AND ONCOLOGY [place], [place] [address] 03/26/2024 9:30 AM EST Infusion Hematology Oncology at [address] [phone] 04/09/2024 9:30 AM EST Office Visit Hematology/Oncology at [address] [phone] Cl Hess MD [facility] [place] [address] HEMATOLOGY AND ONCOLOGY [place], [place] [address] 04/09/2024 10:00 AM EST Infusion Hematology Oncology at [address] [phone] 04/23/2024 9:30 AM EST Office Visit Hematology/Oncology at [address] [phone] Cl Hess MD [facility] [place] [address] HEMATOLOGY [place] [address] 04/23/2024 10:00 AM EST Infusion Hematology Oncology at [address] [phone] 05/18/2024 4:30 PM EDT TH Visit (TeleHealth) [place] [address] Malachi Rothman MD [facility] [place] [address] documented as of this encounter Visit Diagnoses Diagnosis Malignant neoplasm of head of pancreas documented in this encounter Care Teams Verifying Specialist Relationship Specialty Start Date End Date Tristen Hunter MD [address] [place] [address] [place] [address] PCP - General Family Medicine 07/04/23 documented as of this encounter
--- OUTSIDE RECORDS SUMMARY | 2024-03-12 10:51 | XMS_ITS | Encounter Summary ---
[place] [address] Care Team Providers Care Machine Sizer Name Role Phone Tristen Hunter MD Primary Care Provider [phone] Encounter Details Date Type Department Care Team (Late st Contact Info) Description 12/04/2023 Telephone [place] [address] Marga Thorpe Social History Tobacco Use Types Packs/Day Years Used Date Smoking Tobacco: Former Cigarettes 4 30 1 963 - 1992 Smokeless Tobacco: Never Alcohol Use Standard Drinks/Week Comments Yes 7 (1 standard drink = 0.6 oz pur e alcohol) [facility] Utilities Answer Date Recorded In the past 12 months has [employer], gas, oil, or water company threatened to [...] Notes * Telephone Encounter - Marga Thorpe - 12/04/2023 12:38 PM EDT Wero Sadler [id number] Diagnosis/Indication: suspected stent obstruction Please review patient chart to confirm if [...] these questions) Have you ever had a/an ERCP before? Yes: Date 07/02/23 If yes, did you have any problems with the procedure (such as waking up during the procedure, pain or difficulties afterwards, etc.)? No What type of sedation was used: General Anesthesia (ASK ONLY FOR COLONOSCOPY PROCEDURES) Are you [...] vitamins that contain iron? No Do you take a GLP-1 medication for diabetes and/or weight loss? All patients who say yes, regardless of procedure, must be on clear liquids day prior to procedure. If patient answers yes, you must note which medication and instruct to hold the medication prior to procedure for one dose. Brand names include Wegovy, Ozempic, Trulicity, Mounjaro, Zepbound, Rynelsus, Saxenda, Victoza, Byetta, Bydureon, Soliqua, Xultophy No Do you have a preference regarding [...] procedure? No You must have a responsible constitution party who will drive you to your procedure, stay on campus for the entire duration of your procedure, and drive you home from your procedure. Who will likely be your logging truck driver for the procedure? *Please Verify the height and weight, and adjust if height and/or weight have changed* Estimated body mass index is 27.91 kg/m?? as calculated from the following: Height as of 11/29/23: 180.3 cm (5' 10.98). Weight as of 12/02/23: 90.7 kg (200 lb). *Patient must be scheduled for Anesthesia support if BMI is 40 or above* Age:73 y.o. documented in this encounter Plan of Treatment Upcoming Encounters Date Type Department Care Team (Late st Contact Info) Description 03/24/2024 9:00 AM EST TH Visit (TeleHealth) Radiation Oncology at [address] [phone] Ping Moore PA [facility] HEMATOLOGY [place] [address] 03/26/2024 9:30 AM EST Office Visit Hematology/Oncology at [address] [phone] [place]Y [place] [address] 03/26/2024 9:30 AM EST Infusion Hematology Oncology at [address] [phone] 04/09/2024 9:30 AM EST Office Visit Hematology/Oncology at [address] [phone] Cl Hess MD [facility] [place] [address] HEMATOLOGY AND ONCOLOGY [place], [place] [phone] 04/09/2024 10:00 AM EST Infusion Hematology Oncology at [address] [phone] 04/23/2024 9:30 AM EST Office Visit Hematology/Oncology at [address] [phone] Cl Hess MD [facility] [place] [address] [address] [place] [address] 04/23/2024 10:00 AM EST Infusion Hematology Oncology at [address] [phone] 05/18/2024 4:30 PM EDT TH Visit (TeleHealth) [place] [address] Malachi Rothman MD [facility] [place] [address] documented as of this encounter Visit Diagnoses Not on filedocumented in this encounter Care Teams Machine Sizer Relationship Specialty Start Date End Date Tristen Hunter MD [address] [place] [address] [place] [address] PCP - General Family Medicine 07/04/23 documented as of this encounter
--- OUTSIDE RECORDS SUMMARY | 2024-03-12 10:51 | XMS_ITS | Encounter Summary ---
[place] [address] Care Team Providers Care Lumber Grader Name Role Phone Tristen Hunter MD Primary Care Provider [phone] Encounter Details Date Type Department Care Team (Latest Contact Info) Description 12/17/2023 11:54 AM EDT - 12/17/2023 1:17 PM EDT Hospital Encounter [place] [phone] Malignant neoplasm of head of pancreas Discharge Disposition: Home Social History Tobacco Use Types Packs/Day Years Used Date Smoking Tobacco: Former Cigarettes 4 30 1 963 - 1992 Smokeless Tobacco: Never Alcohol Use Standard Drinks/Week Comments Yes 7 (1 standard drink = 0.6 oz pur e alcohol) [facility] Utilities Answer Date Recorded In [...] Sig Dispensed Refills Start Date End Date dbfpzq-ukjvqhmi-qyl lase DR (Creon 24) 24,000-76,000 -120,000 unit capsule Take 3 per meal three times daily and 2 per snack three times daily (15 capsules/day) 450 capsule 10/25/2023 tamsulosin (Flomax) 0.4 mg capsuleIndications: Malignant neoplasm of prostate Take 1 capsule by mouth nightly. 30 capsule 08/20/2023 Insulin Fiasp FlexTouch U-100 100 unit/mL (3 mL) Insulin Pen Inject 3 mLs subcutaneously 4 times daily. 3-18 units. 07/01/2023 Insulin Tresiba FlexTouch U-100 100 unit/mL (3 mL) Insulin Pen 26 units once daily. 06/22/2023 chlorthalidone (Hygroton) 25 mg tablet Take 25 mg by mouth daily. omeprazole (PriLOSEC) [address] capsule Take 20 mg by mouth daily. 05/20/2023 omega 8-ycj-pmn-fish oil 250-350-1,000 mg Capsule Take 1,000 mg [...] 07/12/2023 02/01/2024 documented as of this encounter Progress Notes * Dalila Delgado, RN - 12/17/2023 12:19 PM EDT Patient Name: Wero Sadler Patient Age: 73 y.o. Birthdate: 1950 Admit date: 12/17/2023 Attending Physician: Viola att. providers found Access visit. See MAR and/or flowsheet. documented in this encounter Plan of Treatment Upcoming Encounters Date Type Department Care Team (Late st Contact Info) Description 03/24/2024 9:00 AM EST TH Visit (TeleHealth) Radiation Oncology at [address] [phone] Ping Moore PA [facility] [place] [address] 03/26/2024 9:30 AM EST Office Visit Hematology/Oncology at [address] [phone] Yessi Renee APRN [address] [place] [address] DR HEMATOLOGY AND ONCOLOGY [place], [place] [address] 03/26/2024 9:30 AM EST Infusion Hematology Oncology at [address] [phone] 04/09/2024 9:30 AM EST Office Visit Hematology/Oncology at [address] [phone] Cl Hess MD [facility] [place] [address] Yessi Renee, [address] HEMATOLOGY AND ONCOLOGY [place], [place] [phone] 04/09/2024 10:00 AM EST Infusion Hematology Oncology at [address] [phone] 04/23/2024 9:30 AM EST Office Visit Hematology/Oncology at [address] [phone] Cl Hess MD [facility] [place] [address] [address] HEMATOLOGY AND ONCOLOGY [place], [place] [address] 04/23/2024 10:00 AM EST Infusion Hematology Oncology at [address] [phone] 05/18/2024 4:30 PM EDT TH Visit (TeleHealth) [place] [address] Malachi Rothman MD [facility] [place] [address] documented as of this encounter Procedures Procedure Name Priority Date/Time Associated Diagnosis Comments CARBOHYDRATE ANTIGEN 19-9 Routine 12/17/2023 12:18 PM EDT Malignant neoplasm of head of pancreas CBC (WITH DIFF) Routine 12/17/2023 12:18 PM EDT Malignant neoplasm of head of pancreas COMPREHENSIVE METABOLIC PANEL Routine 12/17/2023 12:18 PM EDT Malignant neoplasm of head of pancreas documented in this encounter Results * (ABNORMAL) Carbohydrate Antigen 19-9 (12/17/2023 12:18 PM EDT) CA 19-9 41.6(H) <=35.0 units/mL 12/17/2023 5:03 PM EDT [facility] Comment:This result was gene rated using a Danni Lita immunoassay. Results obtained from other methods or manufacturers cannot be used interchangeably with this method. Blood VENOUS BLOOD SPECIMEN / Unknown Mediport Line / Unknown 12/17/2023 12:18 PM EDT 12/17/2023 12:27 PM EDT Cl Hess MD CHEMISTRY ORDERABLES [facility] [place] [address] * (ABNORMAL) Comprehensive metabolic panel Non-fasting (12/17/2023 12:18 PM EDT) Glucose 207(H) 65 - 199 mg/dL 12/17/2023 1:11 PM EDT [facility] Comment:Glucose Concentratio n >=200 mg/dL plus symptoms is consistent with Diabetes Mellitus. Blood Urea Nitrogen 14 10 - 20 mg/dL 12/17/2023 1:11 PM EDT [facility] Creatinine 0.55(L) 0.80 - 1.50 mg/dL 12/17/2023 1:11 PM EDT [facility] Sodium 137 135 - 145 mMol/L 12/17/2023 1:11 PM EDT [facility] Potassium 3.8 3.5 - 5.0 mMol/L 12/17/2023 1:11 PM EDT [facility] Chloride 103 98 - 107 mMol/L 12/17/2023 1:11 PM EDT [facility] Carbon Dioxide 24 22 - 31 mMol/L 12/17/2023 1:11 PM EDT [facility] Anion Gap 10 5 - 15 mMol/L 12/17/2023 1:11 PM EDT [facility] Calcium 9.0 8.5 - 10.5 mg/dL 12/17/2023 1:11 PM EDT [facility] Protein, Total 6.5 6.1 - 8.0 g/dL 12/17/2023 1:11 PM EDT [facility] Albumin 4.0 3.2 - 5.2 g/dL 12/17/2023 1:11 PM EDT [facility] Aspartate Aminotransferase 21 <=39 unit/L 12/17/2023 1:11 PM EDT [facility] Alanine Aminotransferase 52 0 - 55 unit/L 12/17/2023 1:11 PM EDT [facility] Alkaline Phosphatase 209(H) 40 - 130 unit/L 12/17/2023 1:11 PM EDT [facility] Bilirubin, Total 0.9 <=1.3 mg/dL 12/17/2023 1:11 PM [facility] Est Glomerular Filtration Rate - Male 103 mL/min/1. 73 m?? 12/17/2023 1:11 PM T [facility] Comment: This patient's estimated [...] eGFR. Link: eGFR Calculator [employer] Fasting Status No 12/17/2023 1:11 PM EDT [facility] Blood VENOUS BLOOD SPECIMEN / Unknown Mediport Line / Unknown 12/17/2023 12:18 PM EDT 12/17/2023 12:27 PM EDT Cl Hess MD CHEMISTRY ORDERABLES [facility] [place] [address] * (ABNORMAL) CBC (with Diff) (12/17/2023 12:18 PM EDT) White Blood Cell 4.14 4.00 - 9.50 x10(3)/mc L 12/17/2023 12:36 PM [facility] Red Blood Cell 3.61(L) 4.58 - 5.54 x10(6)/mc L 12/17/2023 12:36 PM [facility] Hemoglobin 11.0(L) 13.7 - 16.5 g/dL 12/17/2023 12:36 PM [facility] Hematocrit 34.8(L) 40.5 - 48.5 % 12/17/2023 12:36 PM [facility] Mean Cell Volume 96.4(H) 82.9 - 93.1 fL 12/17/2023 12:36 PM [facility] Mean Cell Hemoglobin 30.5 27.5 - 32.1 pg 12/17/2023 12:36 PM [facility] Mean Cell Hemoglobin Concentration 31.6(L) 32.0 - 35.7 g/dL 12/17/2023 12:36 PM [facility] Platelet 129(L) 145 - 357 x10(3)/mc L 12/17/2023 12:36 PM [facility] Mean Platelet Volume 9.9 7.6 - 12.9 fL 12/17/2023 12:36 PM [facility] RDW Standard Deviation 50.1(H) 36.0 - 45.0 fL 12/17/2023 12:36 PM [facility] RDW coefficient of variation 14.2(H) 11.4 - 13.8 % 12/17/2023 12:36 PM [facility] NRBC% auto 0.0 % 12/17/2023 12:36 PM [facility] NRBC Absolute <0.01 <0.01 x10(3)/mc L 12/17/2023 12:36 PM EDT [facility] Neutrophil % 65.4 % 12/17/2023 12:36 PM EDT [facility] Neutrophil Absolute (ANC) - Automated 2.71 1.70 - 6.10 x10(3)/mc L 12/17/2023 12:36 PM EDT [facility] Lymph % 19.1 % 12/17/2023 12:36 PM EDT [facility] Lymph Absolute 0.79(L) 0.90 - 3.20 x10(3)/mc L 12/17/2023 12:36 PM EDT [facility] Monocyte % 12.1 % 12/17/2023 12:36 PM EDT [facility] Monocyte Absolute 0.50 0.30 - 0.90 x10(3)/mc L 12/17/2023 12:36 PM EDT [facility] Eos % 2.4 % 12/17/2023 12:36 PM EDT [facility] Eos Absolute 0.10 0.00 - 0.40 x10(3)/mc L 12/17/2023 12:36 PM EDT [facility] Basophil % 0.5 % 12/17/2023 12:36 PM EDT [facility] Baso Absolute <0.04 0.00 - 0.10 x10(3)/mc L 12/17/2023 12:36 PM EDT [facility] Immature Gran % 0.5 % 12:36 PM EDT [facility] Immature Gran Absolute <0.04 0.00 - 0.04 x10(3)/mc L 12/17/2023 12:36 PM EDT [facility] Blood VENOUS BLOOD SPECIMEN / Unknown Mediport Line / Unknown 12/17/2023 12:18 PM EDT 12/17/2023 12:27 PM EDT Cl Hess MD HEMATOLOGY ORDERABLE S [facility] [place] [address] documented in this encounter Visit Diagnoses Diagnosis Malignant neoplasm of head of pancreas documented in this encounter Care Teams Lumber Grader Relationship Specialty Start Date End Date Tristen Hunter MD [address] [place] [address] [place] [address] PCP - General Family Medicine 07/04/23 documented as of this encounter
--- OUTSIDE RECORDS SUMMARY | 2024-03-12 10:51 | XMS_ITS | Encounter Summary ---
[place] [address] Care Team Providers Care Welding Machine Setter Name Role Phone Tristen Hunter MD Primary Care Provider [phone] Encounter Details Date Type Department Care Team (Late st Contact Info) Description 01/13/2024 Telephone [place] [address] Tracie Rodriguez, RN Social History Tobacco Use Types Packs/Day Years Used Date Smoking Tobacco: Former Cigarettes 4 30 1 963 - 1992 Smokeless Tobacco: Never Alcohol Use Standard Drinks/Week Comments Yes 7 (1 standard drink = 0.6 oz pur e alcohol) [facility] Utilities Answer Date Recorded In the past 12 months has [employer], gas, oil, or water company threatened to [...] encounter Miscellaneous Notes * Telephone Encounter - Tracie Rodriguez RN - 01/13/2024 3:47 PM EST Patient is scheduled for a whipple on 01/23/[address] Balbuena would like the patient to hold his Aspirin for 7 days before surgery so the last dose will be on 01/14/23. I called the patient to review the above instructions. Pt verbalizes his understanding and agrees with the plan. documented in this encounter Plan of Treatment Upcoming Encounters Date Type Department Care Team (Leslye Contact Info) Description 03/24/2024 9:00 AM EST TH Visit (TeleHealth) Radiation Oncology at [address] [phone] Ping Moore PA [facility] [place] [address] 03/26/2024 9:30 AM EST Office Visit Hematology/Oncology at [address] [phone] [address] HEMATOLOGY AND ONCOLOGY [place], [place] [phone] 03/26/2024 9:30 AM EST Infusion Hematology Oncology at [address] [phone] 04/09/2024 9:30 AM EST Office Visit Hematology/Oncology at [address] [phone] Cl Hess MD [facility] [place] [address] [address] HEMATOLOGY AND ONCOLOGY [place], [place] [phone] 04/09/2024 10:00 AM EST Infusion Hematology Oncology at [address] [phone] 04/23/2024 9:30 AM EST Office Visit Hematology/Oncology at [address] [phone] Cl Hess MD [facility] [place] [address] Yessi Renee [address] HEMATOLOGY AND ONCOLOGY [place], [place] [phone] 04/23/2024 10:00 AM EST Infusion Hematology Oncology at [address] [phone] 05/18/2024 4:30 PM EDT TH Visit (TeleHealth) [place] [address] Malachi Rothman MD [facility] [place] [address] documented as of this encounter Visit Diagnoses Not on filedocumented in this encounter Care Teams Welding Machine Setter Relationship Specialty Start Date End Date Tristen Hnuter MD [address] [place] [address] [place] [address] PCP - General Family Medicine 07/04/23 documented as of this encounter
--- OUTSIDE RECORDS SUMMARY | 2024-03-12 10:51 | XMS_ITS | Encounter Summary ---
[place] [address] Care Team Providers Care Sulfur Burner Name Role Phone Tristen Hunter MD Primary Care Provider [phone] Encounter Details Date Type Department Care Team (Latest Contact Info) Description 01/08/2024 Specialty [place] [phone] Slim De La Cruz, [facility] Refill Coordination - Manual (lipase/protease/amyl ase) for Enzyme Social History Tobacco Use Types Packs/Day Years Used Date Smoking Tobacco: Former Cigarettes 4 30 1 963 - 1992 Smokeless Tobacco: Never Alcohol Use Standard Drinks/Week Comments Yes 7 (1 standard drink = 0.6 oz pur e alcohol) [facility] Utilities Answer Date Recorded In the past [...] Progress Notes * Slim De La Cruz [facility] - 01/08/2024 1:05 PM EST Clinical Management Plan: Refill Specialty Pharmacy Consultation; Slim De La Cruz RPH Comprehensive Medication Management (CMM) Mr. Wero Sadler is a 73 y.o. (1950) male who was contacted in regard to a specialty medication refill reminder. The patient requested a refill of Lipase/Protease/Amylase. A review of the medication therapy was performed. The medication was refilled as scheduled, and all medication relatedquestions and concerns were addressed. The specialty pharmacy staff will follow up with the patient5-7 days prior to next refill. Was a change made to the Care Plan: Patient informed pharmacy that he will have surgery on 01/22. If yes, should the medication be held: No Assessment and Recommendations: Allergies and Drug intolerance: Allergies Allergen Reactions Belinostat Other (See Comments) [...] vascular procedure at [facility] in [place]: shaking Has tolerated MRI and CT contrast. Pazopanib Other (See Comments) UGT1A1 Poor Metabolizer. See Clinical Pharmacist Note from 07/04/23 for information. Sacituzumab Govitecan-Hziy Other (See Comments) UGT1A1 Poor Metabolizer. See Clinical Pharmacist Note from 07/04/23 for dosing recommendations. Medication Reconciliation Discrepancies (compared to [facility] med list) -none Review Flowsheet 01/08/2024 1:06 PM Assessment What is the name of the specialty medication you are refilling? Creon [address]16 Are you taking any new medications? No Any new medical conditions? No Please explain No, however Wero will have surgery on 01/22 Any new allergies? No Any new side effects that are bothersome? No Any missed doses since your last fill? 0 How many doses do you have remaining on hand? 18 Would you like a pharmacist to reach out to you to answer any questions? No What date will you need this fill by? 01/15/2024 Medication Therapy Recommendations No medication therapy recommendations to display Pt understands no changes to current drug regimen were made at the appointment and that [facility] is providing recommendations (summary located at top of note) for provider review and follow up. Slim De La Cruz RPH 01/08/24 1:08 PM documented in this encounter Plan of Treatment Upcoming Encounters Date Type Department Care Team (Late st Contact Info) Description 03/24/2024 9:00 AM EST TH Visit (TeleHealth) Radiation Oncology at [address] [phone] Ping Moore PA [facility] HEMATOLOGY [place] [address] 03/26/2024 9:30 AM EST Office Visit Hematology/Oncology at [address] [phone] Y[address] HEMATOLOGY AND ONCOLOGY [place], [place] [phone] 03/26/2024 9:30 AM EST Infusion Hematology Oncology at [address] [phone] 04/09/2024 9:30 AM EST Office Visit Hematology/Oncology at [address] [phone] Cl Hess MD [facility] [place] [address] [address] HEMATOLOGY AND ONCOLOGY [place], [place] [phone] 04/09/2024 10:00 AM EST Infusion Hematology Oncology at [address] [phone] 04/23/2024 9:30 AM EST Office Visit Hematology/Oncology at [address] [phone] Cl Hess MD [facility] [place] [address] Yess[address] Renee [address] [place] [address] 04/23/2024 10:00 AM EST Infusion Hematology Oncology at [address] [phone] 05/18/2024 4:30 PM EDT TH Visit (TeleHealth) [place] [address] Malachi Rothman MD [facility] [place] [address] documented as of this encounter Visit Diagnoses Not on filedocumented in this encounter Care Teams Sulfur Burner Relationship Specialty Start Date End Date Tristen Hunter MD [address] [place] [address] [place] [address] PCP - General Family Medicine 07/04/23 documented as of this encounter
--- OUTSIDE RECORDS SUMMARY | 2024-03-12 10:52 | XMS_ITS | Encounter Summary ---
Author Organization [facility] [place] [address] Care Team Providers Care Pickle Cutter Name Role Phone Tristen Hunter MD Primary Care Provider [phone] Encounter Details Date Type Department Care Team (Latest Contact Info) Description 11/01/2023 9:30 AM EDT Clinical Support Hematology/Oncology at [address] [phone] [facility] DR [place] [address] Malignant neoplasm of head of pancreas Social History Tobacco Use Types Packs/Day Years Used Date Smoking Tobacco: Former Cigarettes 1992 Smokeless Tobacco: Never Alcohol Use Standard Drinks/Week Comments Yes 7 (1 standard drink = 0.6 oz pur e alcohol) [facility] Utilities Answer Date Recorded In the past 12 months has [employer], gas, oil, or water company threatened [...] Progress Notes * Lupe Velasquez, RD - 11/01/2023 9:30 AM EDT Nutrition Note Spoke with Wero in clinic today. Patient completed 8 cycles of neoadjuvant mFolfirinox for pancreatic cancer starting on 07/11. Restaging CT scan was done on 10/23/23 showing no evidence of distant metastatic disease; cystic pancreatic head mass is stable. Plan is to start SBRT in 1-2 weeks. He met with Dr. Balbuena on 06/25/23. He felt the tumor was resectable but recommended neoadjuvant therapy. He has a good appetite and has been eating well. He had biscuits and gravy with three eggs, three donut holes and 3 cups coffee and glucerna. He takes 3 (sometimes 4) Creon 24 per meal and 2 per snack. BM's are formed. Patient says I still have tremendous gas at night, mostly when he lays down in bed. He has tried Gas-X and says this doesn't work. We reviewed EPI symptoms and this was the only one he endorsed still having. BG is fairly well controlled. A1C is 7.2% down from 10%. He takes both long and short acting insulin. Long acting insulin was recently decreased from 36 to 32 units to help with morning hypoglycemia. Wt Readings from Last 10 Encounters: 11/01/23 91.9 kg (202 lb 9.6 oz) 10/30/23 92.7 kg (204 lb 4.8 oz) 10/25/23 90.3 kg (199 lb) 10/18/23 91.8 kg (202 lb 6.4 oz) 10/11/23 90.7 kg (200 lb) 10/04/23 91.5 kg (201 lb 12.8 oz) 09/20/23 92.4 kg (203 lb 12.8 oz) 09/06/23 91 kg (200 lb 9.6 oz) 08/23/23 85.7 kg (189 lb) 08/09/23 85.1 kg (187 lb 9.6 oz) 07/05/23 79.8 kg (176 lb) 07/31/22 103.9 kg (229 lb) BMI 28.27 3# gain in past week 10/24-10/31, basically stable for past 1.5 months 28# re-gain in 2.5 months 07/04-09/19 44# (23.2% body weight) loss over past year per chart 07/31/22-07/05/23 Lost 85# total per patient Diet: Eats 3 meals/day. Brother helps with cooking meals. Breakfast this morning: Biscuits and gravy with three eggs and three donut hole, 3 cups coffee and 1 bottle Glucerna Dosing Creon 24: 3 (sometimes 4) per meal and 1-2 per snack Drinking 2-3 L fluids daily, mostly water. Medications: Creon 24 (3-4 with meals and 1-2 with snacks), flomax, long acting insulin, SS insulin, zofran prn, compazine prn, imodium, chlorthalidone, omeprazole, tamsulosin, omega 3, amlodipine, carvedilol, lisinopril, folic acid, imdur, lipitor, aspirin Labs on 10/16: H/H 10.7/33, Na 143, K 4.0, AlkPhos 161, AST 37, ALT 78H, BUN 16, BG 178, Alb 3.4, Tbili 0.8 Nutrition Problem: Involuntary weight loss and altered GI function related to pancreatic cancer as evidenced by PERT (Creon 24: 3 per meal and one per snack) and 44# (23.2% body weight) loss over past year 07/31/22-07/05/23 Improved Recommendations: Encouraged continuing to eat well to maintain weight during SBRT. He has done well with regaining 28# during adjuvant chemotherapy following 44# loss in year prior to treatment. BG control has improved. Patient uses CGM and insulin is managed by PCP. Patient reports recent A1Cof 7.2% down from 10%. EPI symptoms seem well controlled with Creon 24: 3 (sometimes 4) per meal and 1- 2 per snack; continue with this. He says Medicaid is active again which covers cost of Creon. He does still have some gas when he lies down in bed at night; this doesn't respond to Gas-X. Patient is currently taking ~15 capsules of Creon 24 per day. UL at his current weight of 91.9 kg is 38 capsules per day. Will f/u on 11/28 documented in this encounter Plan of Treatment Upcoming Encounters Date Type Department Care Team (Late st Contact Info) Description 03/24/2024 9:00 AM EST TH Visit (TeleHealth) Radiation Oncology at [address] [phone] Ping Moore PA [facility] DR [place] [address] 03/26/2024 9:30 AM EST Office Visit Hematology/Oncology at [address] [phone] [address] HEMATOLOGY [place] [address] 03/26/2024 9:30 AM EST Infusion Hematology Oncology at [address] [phone] 04/09/2024 9:30 AM EST Office Visit Hematology/Oncology at [address] [phone] Cl Hess MD [facility] [place] [address] [address] HEMATOLOGY [place] [address] 04/09/2024 10:00 AM EST Infusion Hematology Oncology at [address] [phone] 04/23/2024 9:30 AM EST Office Visit Hematology/Oncology at [address] [phone] Cl Hess MD [facility] [place] [address] [address] HEMATOLOGY [place] [address] 04/23/2024 10:00 AM EST Infusion Hematology Oncology at [address] [phone] 05/18/2024 4:30 PM EDT TH Visit (TeleHealth) [place] [address] Malachi Rothman MD [facility] [place] [address] documented as of this encounter Visit Diagnoses Diagnosis Malignant neoplasm of head of pancreas documented in this encounter Care Teams Pickle Cutter Relationship Specialty Start Date End Date Tristen Hunter MD [address] [place] [address] [place] [address] PCP - General Family Medicine 07/04/23 documented as of this encounter
--- OUTSIDE RECORDS SUMMARY | 2024-03-12 10:52 | XMS_ITS | Encounter Summary ---
Author Organization [facility] Address [facility] [place] [address] Care Team Providers Care Community Resource Officer Name Role Phone Tristen Hunter MD Primary Care Provider [phone] Encounter Details Date Type Department Care Team (Late st Contact Info) Description 10/23/2023 Interpretation Only Radiology Library at [facility], [place] [id number] Unknown None Social History Tobacco Use Types Packs/Day Years Used Date Smoking Tobacco: Former Cigarettes 4 30 1 963 - 1992 Smokeless Tobacco: Never Alcohol Use Standard Drinks/Week Comments Yes 7 (1 standard drink = 0.6 oz pur e alcohol) [facility] Utilities Answer Date Recorded In the past 12 months has e [employer], gas, oil, or water company threatened to [...] EST TH Visit (TeleHealth) Radiation Oncology at [address] [phone] Ping Moore PA [facility] [place] [address] 03/26/2024 9:30 AM EST Office Visit Hematology/Oncology at [address] [phone] Yessi Renee APRN [address] [place] [address] DR HEMATOLOGY [place] [address] 03/26/2024 9:30 AM EST Infusion Hematology Oncology at [address] [phone] 04/09/2024 9:30 AM EST Office Visit Hematology/Oncology at [address] [address] Cl Hess MD [facility] [place] [address] [address] HEMATOLOGY AND ONCOLOGY [place], [place] [address] [phone] 04/09/2024 10:00 AM EST Infusion Hematology Oncology at [address] [phone] 04/23/2024 9:30 AM EST Office Visit Hematology/Oncology at [address] [address] Cl Hess MD [facility] [place] [address] [address] HEMATOLOGY AND ONCOLOGY [place], [place] [address] 04/23/2024 10:00 AM EST Infusion Hematology Oncology at [address] [phone] 05/18/2024 4:30 PM EDT TH Visit (TeleHealth) [place] [address] Malachi Rothman MD [facility] [place] [address] documented as of this encounter Procedures Procedure Name Priority Date/Time Associated Diagnosis Comments FILM LIBRARY STORAGE ONLY CT ABDOMEN AND PELVIS Routine 10/23/2023 1:45 PM EDT documented in this encounter Results * Film Library- Storage Only CT Abdomen & Pelvis (10/23/2023 1:45 PM EDT) 10/31/2023 1:30 PM EDT Narrative EUFEMIA - 10/31/2023 1:30 PM EDT This exam is auto-finalizing. It's purpose is for storage only. Unknown IMG FILM LIBRARY ORD ERABLES [place], [place] documented in this encounter Visit Diagnoses Not on filedocumented in this encounter Care Teams Community Resource Officer Relationship Specialty Start Date End Date Tristen Hunter MD [address] [place] [address] [place] [address] PCP - General Family Medicine 07/04/23 documented as of this encounter
--- OUTSIDE RECORDS SUMMARY | 2024-03-12 10:52 | XMS_ITS | Encounter Summary ---
[place] [address] Care Team Providers Care Refuge Worker Name Role Phone Tristen Hunter MD Primary Care Provider [phone] Encounter Details Date Type Department Care Team (Latest Contact Info) Description 11/18/2023 Travel Social History Tobacco Use Types Packs/Day Years Used Date Smoking Tobacco: Former Cigarettes 4 30 1 963 - 1992 Smokeless Tobacco: Never Alcohol Use Standard Drinks/Week Comments Yes 7 (1 standard drink = 0.6 oz pur e alcohol) [facility] Utilities Answer Date Recorded In the past 12 months has [employer], gas, oil, or water company threatened [...] EST TH Visit (TeleHealth) Radiation Oncology at [address] [phone] Ping Moore PA [facility] DR [place] [address] 03/26/2024 9:30 AM EST Office Visit Hematology/Oncology at [address] [phone] Yessi Renee APRN [address] [place] [address] DR [place] [address] 03/26/2024 9:30 AM EST Infusion Hematology Oncology at [address] [phone] 04/09/2024 9:30 AM EST Office Visit Hematology/Oncology at [address] [address] Cl Hess MD [facility] [place] [address] [address] HEMATOLOGY AND ONCOLOGY [place], [place] [phone] 04/09/2024 10:00 AM EST Infusion Hematology Oncology at [address] [phone] 04/23/2024 9:30 AM EST Office Visit Hematology/Oncology at [address] [phone] Cl Hess MD [facility] [place] [address] [place] [address] 04/23/2024 10:00 AM EST Infusion Hematology Oncology at [address] [phone] 05/18/2024 4:30 PM EDT TH Visit (TeleHealth) [place] [address] Malachi Rothman MD [facility] [place] [address] documented as of this encounter Visit Diagnoses Not on filedocumented in this encounter Care Teams Refuge Worker Relationship Specialty Start Date End Date Tristen Hunter MD [address] [place] [address] [place] [address] PCP - General Family Medicine 07/04/23 documented as of this encounter
--- OUTSIDE RECORDS SUMMARY | 2024-03-12 10:52 | XMS_ITS | Encounter Summary ---
[place] [address] Care Team Providers Care Refractory Furnace Designer Name Role Phone Tristen Hunter MD Primary Care Provider [phone] Encounter Details Date Type Department Care Team (Latest Contact Info) Description 11/01/2023 Travel Social History Tobacco Use Types Packs/Day Years Used Date Smoking Tobacco: Former Cigarettes 07 01 1 963 - 1992 Smokeless Tobacco: Never Alcohol Use Standard Drinks/Week Comments Yes 7 (1 standard drink = 0.6 oz pur e alcohol) [facility] Utilities Answer Date Recorded In the past 12 months has [employer] electric, gas, oil, or water company threatened [...] EST TH Visit (TeleHealth) Radiation Oncology at [address] [phone] Ping Moore PA [facility] DR HEMATOLOGY [place] [address] 03/26/2024 9:30 AM EST Office Visit Hematology/Oncology at [address] [phone] Yessi Renee APRN [address] [place] [address] DR [place] [address] 03/26/2024 9:30 AM EST Infusion Hematology Oncology at [address] [phone] 04/09/2024 9:30 AM EST Office Visit Hematology/Oncology at [address] [phone] Cl Hess MD [facility] [place] [address] [address] HEMATOLOGY AND ONCOLOGY [place], [place] [phone] 04/09/2024 10:00 AM EST Infusion Hematology Oncology at [address] [phone] 04/23/2024 9:30 AM EST Office Visit Hematology/Oncology at [address] [phone] Cl Hess MD [facility] [place] [address] [address] [place] [address] 04/23/2024 10:00 AM EST Infusion Hematology Oncology at [address] [phone] 05/18/2024 4:30 PM EDT TH Visit (TeleHealth) [place] [address] Malachi Rothman MD [facility] [place] [address] documented as of this encounter Visit Diagnoses Not on filedocumented in this encounter Care Teams Refractory Furnace Designer Relationship Specialty Start Date End Date Tristen Hunter MD [address] [place] [address] [place] [address] PCP - General Family Medicine 07/04/23 documented as of this encounter
--- OUTSIDE RECORDS SUMMARY | 2024-03-12 10:52 | XMS_ITS | Encounter Summary ---
Author Organization [facility] Address [facility] [place] [address] Care Team Providers Care Speech Therapist Technician Name Role Phone Tristen Hunter MD Primary Care Provider [phone] Encounter Details Date Type Department Care Team (Late st Contact Info) Description 10/25/2023 Orders Only Hematology/Oncology at [address] [phone] Cl Hess MD [facility] [address] [place] [address] Social History Tobacco Use Types Packs/Day Years Used Date Smoking Tobacco: Former Cigarettes 4 30 1 963 - 1992 Smokeless Tobacco: Never Alcohol Use Standard Drinks/Week Comments Yes 7 (1 standard drink = 0.6 oz pur e alcohol) [facility] Utilities Answer Date Recorded In the [...] AM EST Visit (TeleHealth) Radiation Oncology at [address] [phone] Ping Moore PA [facility] [place] [address] 03/26/2024 9:30 AM EST Office Visit Hematology/Oncology at [address] [phone] [address] HEMATOLOGY AND ONCOLOGY [place], [place] [address] [phone] 03/26/2024 9:30 AM EST Infusion Hematology Oncology at [address] [phone] 04/09/2024 9:30 AM EST Office Visit Hematology/Oncology at [address] [phone] Cl Hess MD [facility] [address] Yessi Renee [address] HEMATOLOGY AND ONCOLOGY [place], [place] [phone] 04/09/2024 10:00 AM EST Infusion Hematology Oncology at [address] [phone] 04/23/2024 9:30 AM EST Office Visit Hematology/Oncology at [address] [phone] Cl Hess MD [facility] [address] [address] [place] [address] 04/23/2024 10:00 AM EST Infusion Hematology Oncology at [address] [phone] 05/18/2024 4:30 PM EDT TH Visit (TeleHealth) [place] [address] Malachi Rothman MD [facility] [place] [address] documented as of this encounter Visit Diagnoses Not on filedocumented in this encounter Care Teams Speech Therapist Technician Relationship Specialty Start Date End Date Tristen Hunter MD [address] [place] [address] [place] [address] PCP - General Family Medicine 07/04/23 documented as of this encounter
--- OUTSIDE RECORDS SUMMARY | 2024-03-12 10:52 | XMS_ITS | Encounter Summary ---
[place] [address] Care Team Providers Care Turnstile Collector Name Role Phone Tristen Hunter MD Primary Care Provider [phone] Encounter Details Date Type Department Care Team (Latest Contact Info) Description 11/25/2023 Travel Social History Tobacco Use Types Packs/Day Years Used Date Smoking Tobacco: Former Cigarettes 4 30 1 963 - 1992 Smokeless Tobacco: Never Alcohol Use Standard Drinks/Week Comments Yes 7 (1 standard drink = 0.6 oz pur e alcohol) [facility] Utilities Answer Date Recorded In the past 12 months has [employer], gas, oil, or water company threatened [...] TH Visit (TeleHealth) Radiation Oncology at [address] [phone] [facility] DR [place] [address] 03/26/2024 9:30 AM EST Office Visit Hematology/Oncology at [address] [phone] Yessi Renee APRN [address] [place] [address] [place] [address] 03/26/2024 9:30 AM EST Infusion Hematology Oncology at [address] [phone] 04/09/2024 9:30 AM EST Office Visit Hematology/Oncology at [address] [phone] [facility] [place] [address] HEMATOLOGY AND ONCOLOGY [place], [place] [phone] 04/09/2024 10:00 AM EST Infusion Hematology Oncology at [address] [phone] 04/23/2024 9:30 AM EST Office Visit Hematology/Oncology at [address] [phone] [facility] [address] [place] [address] 04/23/2024 10:00 AM EST Infusion Hematology Oncology at [address] [phone] 05/18/2024 4:30 PM EDT TH Visit (TeleHealth) [place] [address] [facility] [place] [address] documented as of this encounter Visit Diagnoses Not on filedocumented in this encounter Care Teams Turnstile Collector Relationship Specialty Start Date End Date Tristen Hunter MD [address] [place] [address] [place] [address] PCP - General Family Medicine 07/04/23 documented as of this encounter
--- OUTSIDE RECORDS SUMMARY | 2024-03-12 10:52 | XMS_ITS | Encounter Summary ---
[place] [address] Care Team Providers Care Community Center Worker Name Role Phone Tristen Hunter MD Primary Care Provider Encounter Details Date Type Department Care Team (Latest Contact Info) Description 10/18/2023 Travel Social History Tobacco Use Types Packs/Day Years Used Date Smoking Tobacco: Former Cigarettes 4 30 1 963 - 1992 Smokeless Tobacco: Never Alcohol Use Standard Drinks/Week Comments Yes 7 (1 standard drink = 0.6 oz pur e alcohol) [facility] Utilities Answer Date Recorded In the past 12 months has [employer] electric, gas, oil, or water company threatened [...] in a halfway (including now)? No 06/04/2023 DH IPV Inpatient [...] TH Visit (TeleHealth) Radiation Oncology at [address] [phone] Ping Moore PA [facility] DR HEMATOLOGY [place] [address] 03/26/2024 9:30 AM EST Office Visit Hematology/Oncology at [address] [phone] Yessi Renee APRN [address] [place] [address] DR [place]Y [place] [address] 03/26/2024 9:30 AM EST Infusion Hematology Oncology at [address] [phone] 04/09/2024 9:30 AM EST Office Visit Hematology/Oncology at [address] [phone] Cl Hess MD [facility] [place] [address] [address] HEMATOLOGY AND ONCOLOGY [place], [place] [phone] 04/09/2024 10:00 AM EST Infusion Hematology Oncology at [address] [phone] 04/23/2024 9:30 AM EST Office Visit Hematology/Oncology at [address] [phone] Cl Hess MD [facility] [place] [address] [address] HEMATOLOGY [place] [address] 04/23/2024 10:00 AM EST Infusion Hematology Oncology at [address] [phone] 05/18/2024 4:30 PM EDT TH Visit (TeleHealth) [place] [address] Malachi Rothman MD [facility] [place] [address] documented as of this encounter Visit Diagnoses Not on filedocumented in this encounter Care Teams Community Center Worker Relationship Specialty Start Date End Date Tristen Hunter MD [address] [place] [address] [place] [address] PCP - General Family Medicine 07/04/23 documented as of this encounter
--- OUTSIDE RECORDS SUMMARY | 2024-03-12 10:52 | XMS_ITS | Encounter Summary ---
Author Organization [facility] [place] [address] Care Team Providers Care Sql Server Dba Developer Name Role Phone Tristen Hunter MD Primary Care Provider [phone] Reason for Visit * Reason Comments Procedure View ray SBRT * Consultation (Routine) - Closed Specialty Diagnoses / Procedures Referred By Contac t Referred To Contact Radiation Oncology Diagnoses Malignant neoplasm of prostate Procedures Simulation for Radiation Therapy Planning Malachi Rothman MD [facility] [place] [address] [facility] [place] [address] Referral ID Status Reason Start Date Expiration Date V isits Requested Visits Authorized [id number] Closed Consult, Test & Treat 10/25/2023 10/24/2024 6 6 Encounter Details Date Type Department Care Team (Latest Contact Info) Description 11/21/2023 10:30 AM EDT Procedure visit [place] [address] Malachi Rothman MD [facility] [place] [address] Malignant neoplasm of head of pancreas Social History Tobacco Use Types Packs/Day Years Used Date Smoking Tobacco: Former Cigarettes 4 30 1 3 - 1992 Smokeless Tobacco: Never Alcohol Use Standard Drinks/Week Comments Yes 7 (1 standard drink = 0.6 oz pur e alcohol) [facility] Utilities Answer Date Recorded In the past [...] a senior care (including now)? No 06/04/2023 DH IPV Inpatient Questions Answer Date Recorded Does Anyone Try to Keep You From Having Contact with Others or Doing Things Outside Your Home? no 07/05/2023 Feels Threatened by Someone no 05/0 05/2023 Feels Unsafe at Home or Work/School no 07/05/2023 Physical Signs of Abuse Present no 07/05/2023 Sex and Gender Information Value Date Recorded Sex Assigned at Not on file Gender Identity Not on file Sexual Orientation Not on file documented as of this encounter Last Filed Vital Signs Vital Sign Reading Time Taken Comments Blood Pressure 171/77 11/21/2023 9:53 AM EDT Pulse 64 11/21/2023 9:53 AM EDT Temperature 36.3 ??C (97.3 ??F) 11/21/2023 9:53 AM ED T Respiratory Rate 20 11/21/2023 9:53 AM EDT Oxygen Saturation 98% 11/21/2023 9:53 AM EDT Inhaled Oxygen Concentration - - Weight 90.3 kg (199 lb) 11/21/2023 9:53 AM EDT Height - - Body Mass Index 27.77 11/01/2023 9:01 AM EDT documented in this encounter Progress Notes * Malachi Rothman MD - 11/21/2023 10:30 AM EDT Images from the original note were not included. [facility] Medicine Radiation Oncology Radiation Oncology SBRT Procedure Note Patient Identity: Patient name: Wero Sadler Date of : 1950 Chief complaint: Day1 : no nausea or vomiting Day 2: Stable Day 3: doing well with no abdominal pain or nausea. Oncologic History: Mr.Philip Adwoa Sadler is a very pleasant, [...] [address] scan findings. Clinical trial: Medications 11/21/23 1000 Medication Sig Taking? [id number]-[id number]-thhidea DR (Creon 24) 24,000-76,000 -120,[address] capsule Take 3 per meal three times daily and 2 per snack three times daily (15 capsules/day) Yes tamsulosin (Flomax) 0.4 mg capsule Take 1 capsule by mouth nightly. Yes Insulin Fiasp FlexTouch U-100 100 unit/mL (3 mL) Insulin Pen Inject 3 mLs subcutaneously 4 times daily. Yes Insulin Tresiba FlexTouch U-100 100 unit/mL (3 mL) Insulin Pen 30 units in the AM Takes half a dose on radiation tx days Took 15 units 11/15/23 Took 15 units 11/21/23 Yes omeprazole (PriLOSEC) [address] capsule Take 20 mg by mouth daily. Yes omega 5-tis-siq-fish oil 250-350-1,000 mg Capsule Take 1,000 mg by mouth. Yes amLODIPine (Norvasc) 10 mg Tablet Take 0.5 tablets by mouth daily. Amlodipine (Hold if SBP<120) Patient taking differently: Take 10 mg by mouth daily. Amlodipine (Hold if SBP<120) Yes carvediloL (Coreg) 25 mg Tablet Take 1 tablet by mouth 2 times daily (with meals). Carvedilol (holdfor SBP <110, Hr <60) Patient taking differently: Take 25 mg by mouth once. Carvedilol (hold for SBP <110, Hr <60) Yes lisinopriL (Zestril) 40 mg Tablet Take 1 tablet by mouth daily. Lisinopril (hold for SBP <130) Yes timoloL (Timoptic) 0.5 % Drops daily. Yes folic acid (Folvite) 1 mg Tablet Take 1 tablet by mouth daily. Yes isosorbide mononitrate CR (Imdur) 30 mg Tablet Sustained Release 24 hr Take 1 tablet by mouth nightly. Yes atorvastatin (Lipitor) 80 mg Tablet Take 1 tablet by mouth every evening. Yes aspirin EC 81 mg Tablet, Delayed Release (E.C.) Take 81 mg by mouth daily. Yes ondansetron (Zofran) 8 mg tablet Take 1 tablet by mouth every 8 hours as needed for Nausea. Do not use for 72 hours after chemotherapy Patient not taking: Reported on 11/01/2023 prochlorperazine (Compazine) 10 mg tablet Take 1 tablet by mouth every 6 hours as needed for Nausea. Patient not taking: Reported on 07/26/2023 chlorthalidone (Hygroton) 25 mg tablet Take 25 mg by mouth daily. erythromycin (Romycin) 5 mg/gram (0.5 %) Ointment Place 1 Tube into the left eye once a week. Exam: Temp: [36.3 ??C (97.3 ??F)] Heart Rate: [64] Resp: [20] BP: (171)/(77) SpO2: [98 %] Heart Rate from SpO2: -- KPS: 80 Abdomen: Soft with no organomegaly. Lower extremity: No edema Treatment: Intent: Curative Site: Pancreas Prescription: 50 Gy in 5 fractions Technique: SBRT/MRI guided Radiation Therapy Procedure Detail: Mr. Sadler was in the radiation oncology clinic today for stereotactic body radiation therapy to treat the above diagnosis on the SeeOngRT system. he was evaluated pre- treatment in the clinic, and has no contraindications for proceeding with treatment. he was not premedicated. Pre-treatment contrast was not administered. he was brought to the treatment area and name and were verified as was the site of treatment. he was setup in a similar fashion as at the time of simulation. Initial IGRT was accomplished with high-resolution MRI imaging. The treatment plan was verified: target coverage was adequate but OAR doses exceeded tolerance. Due to the above, an online adaptive re-plan was performed and a modified plan was formulated. The delivered/adapted plan met the necessary criteria to ensure adequate target coverage and safety (ie OAR doses). he was monitored continuously during treatment delivery with the real-time cine- loop MRI imaging. his 3rd of 5 SBRT treatments was successfully delivered. Impression/Plan: Impression: Wero Sadler tolerated treatment without incident. Plan: Continue radiation therapy as planned. documented in this encounter Plan of Treatment Upcoming Encounters Date Type Department Care Team (Late st Contact Info) Description 03/24/2024 9:00 AM EST TH Visit (TeleHealth) Radiation Oncology at [address] [phone] Ping Moore PA [facility] DR [place] [address] 03/26/2024 9:30 AM EST Office Visit Hematology/Oncology at [address] [phone] [address] HEMATOLOGY AND ONCOLOGY [place], [place] [address] 03/26/2024 9:30 AM EST Infusion Hematology Oncology at [address] [phone] 04/09/2024 9:30 AM EST Office Visit Hematology/Oncology at [address] [phone] Cl Hess MD [facility] [place] [address] [address] HEMATOLOGY AND ONCOLOGY [place], [place] [address] 04/09/2024 10:00 AM EST Infusion Hematology Oncology at [address] [phone] 04/23/2024 9:30 AM EST Office Visit Hematology/Oncology at [address] [phone] Cl Hess MD [facility] [place] [address] [address] HEMATOLOGY AND ONCOLOGY [place], [place] [phone] 04/23/2024 10:00 AM EST Infusion Hematology Oncology at [address] [phone] 05/18/2024 4:30 PM EDT TH Visit (TeleHealth) [place] [address] Malachi Rothman MD [facility] [place] [address] documented as of this encounter Visit Diagnoses Diagnosis Malignant neoplasm of head of pancreas documented in this encounter Care Teams Sql Server Dba Developer Relationship Specialty Start Date End Date Tristen Hunter MD [address] [place] [address] [place] [address] PCP - General Family Medicine 07/04/23 documented as of this encounter
--- OUTSIDE RECORDS SUMMARY | 2024-03-12 10:52 | XMS_ITS | Encounter Summary ---
Author Organization [facility] [place] [address] Care Team Providers Care Flotation Tender Helper Name Role Phone Tristen Hunter MD Primary Care Provider [phone] Encounter Details Date Type Department Care Team (Late st Contact Info) Description 10/24/2023 Orders Only [place] [address] Cl Hess MD [facility] [place] [address] Malignant neoplasm of head of pancreas; Pancreatic insufficiency Social History Tobacco Use Types Packs/Day Years Used Date Smoking Tobacco: Former Cigarettes 4 30 1 3 - 1992 Smokeless Tobacco: Never Alcohol Use Standard Drinks/Week Comments Yes 7 (1 standard drink = 0.6 oz pur e alcohol) [facility] Utilities Answer Date Recorded In the past 12 months has [employer], gas, oil, or water company threatened [...] EST TH Visit (TeleHealth) Radiation Oncology at [address] [phone] Ping Moore PA [facility] HEMATOLOGY [place] [address] 03/26/2024 9:30 AM EST Office Visit Hematology/Oncology at [address] [phone] [address] HEMATOLOGY AND ONCOLOGY [place], [place] [address] [phone] 03/26/2024 9:30 AM EST Infusion Hematology Oncology at [address] [phone] 04/09/2024 9:30 AM EST Office Visit Hematology/Oncology at [address] [phone] Cl Hess MD [facility] [place] [address] Yessi Renee [address] HEMATOLOGY AND ONCOLOGY [place], [place] [phone] 04/09/2024 10:00 AM EST Infusion Hematology Oncology at [address] [phone] 04/23/2024 9:30 AM EST Office Visit Hematology/Oncology at [address] [phone] Cl Hess MD [facility] [place] [address] [address] HEMATOLOGY AND ONCOLOGY [place], [place] [address] 04/23/2024 10:00 AM EST Infusion Hematology Oncology at [address] [phone] 05/18/2024 4:30 PM EDT TH Visit (TeleHealth) [place] [address] Malachi Rothman MD [facility] [place] [address] documented as of this encounter Visit Diagnoses Diagnosis Malignant neoplasm of head of pancreas Pancreatic insufficiency Other specified disease of pancreas documented in this encounter Care Teams Flotation Tender Helper Relationship Specialty Start Date End Date Tristen Hunter MD [address] [place] [address] [place] [address] PCP - General Family Medicine 07/04/23 documented as of this encounter
--- OUTSIDE RECORDS SUMMARY | 2024-03-12 10:52 | XMS_ITS | Encounter Summary ---
[place] [address] Care Team Providers Care Field Adjuster Name Role Phone Tristen Hunter MD Primary Care Provider Encounter Details Date Type Department Care Team (Latest Contact Info) Description 11/27/2023 Travel Social History Tobacco Use Types Packs/Day Years Used Date Smoking Tobacco: Former Cigarettes 4 30 1 963 - 1992 Smokeless Tobacco: Never Alcohol Use Standard Drinks/Week Comments Yes 7 (1 standard drink = 0.6 oz pur e alcohol) [facility] Utilities Answer Date Recorded In the past 12 months has [employer] electric, gas, oil, or water company threatened [...] EST TH Visit (TeleHealth) Radiation Oncology at [address] [phone] [facility] DR [place] [address] 03/26/2024 9:30 AM EST Office Visit Hematology/Oncology at [address] [phone] Yessi Renee APRN [address] [place] [address] DR HEMATOLOGY [place] [address] 03/26/2024 9:30 AM EST Infusion Hematology Oncology at [address] [phone] 04/09/2024 9:30 AM EST Office Visit Hematology/Oncology at [address] [phone] [facility] [place] [address] [address] HEMATOLOGY AND ONCOLOGY [place], [place] [phone] 04/09/2024 10:00 AM EST Infusion Hematology Oncology at [address] [phone] 04/23/2024 9:30 AM EST Office Visit Hematology/Oncology at [address] [phone] [facility] [place] [address] [address] HEMATOLOGY [place] [address] 04/23/2024 10:00 AM EST Infusion Hematology Oncology at [address] [phone] 05/18/2024 4:30 PM EDT TH Visit (TeleHealth) [place] [address] [facility] [address] documented as of this encounter Visit Diagnoses Not on filedocumented in this encounter Care Teams Field Adjuster Relationship Specialty Start Date End Date Tristen Hunter MD [address] [place] [address] [place] [address] PCP - General Family Medicine 07/04/23 documented as of this encounter
--- OUTSIDE RECORDS SUMMARY | 2024-03-12 10:52 | XMS_ITS | Encounter Summary ---
[place] [address] Care Team Providers Care Automation Consultant Name Role Phone Tristen Hunter MD Primary Care Provider [phone] Encounter Details Date Type Department Care Team (Latest Contact Info) Description 10/30/2023 Travel Social History Tobacco Use Types Packs/Day Years Used Date Smoking Tobacco: Former Cigarettes 4 30 1 963 - 1992 Smokeless Tobacco: Never Alcohol Use Standard Drinks/Week Comments Yes 7 (1 standard drink = 0.6 oz pur e alcohol) [facility] Utilities Answer Date Recorded In the past 12 months has [employer], gas, oil, or water company threatened [...] EST TH Visit (TeleHealth) Radiation Oncology at [address] [phone] Ping Moore PA [facility] DR HEMATOLOGY [place] [address] 03/26/2024 9:30 AM EST Office Visit Hematology/Oncology at [address] [phone] Yessi Renee APRN [address] [place] [address] DR HEMATOLOGY [place] [address] 03/26/2024 9:30 AM EST Infusion Hematology Oncology at [address] [phone] 04/09/2024 9:30 AM EST Office Visit Hematology/Oncology at [address] [phone] Cl Hess MD [facility] [place] [address] [address] HEMATOLOGY AND ONCOLOGY [place], [place] [phone] 04/09/2024 10:00 AM EST Infusion Hematology Oncology at [address] [phone] 04/23/2024 9:30 AM EST Office Visit Hematology/Oncology at [address] [phone] Cl Hess MD [facility] [address] [address] HEMATOLOGY [place] [address] 04/23/2024 10:00 AM EST Infusion Hematology Oncology at [address] [phone] 05/18/2024 4:30 PM EDT TH Visit (TeleHealth) [place] [address] Malachi Rothman MD [facility] [place] [address] documented as of this encounter Visit Diagnoses Not on filedocumented in this encounter Care Teams Automation Consultant Relationship Specialty Start Date End Date Tristen Hunter MD [address] [place] [address] [place] [address] PCP - General Family Medicine 07/04/23 documented as of this encounter
--- OUTSIDE RECORDS SUMMARY | 2024-03-12 10:52 | XMS_ITS | Encounter Summary ---
Author Organization [facility] Address [facility] [place] [address] Care Team Providers Care Casing In Line Setter Name Role Phone Tristen Hunter MD Primary Care Provider [phone] Reason for Visit * Reason Onset Date Comments Medication Refill 10/24/2023 Encounter Details Date Type Department Care Team (Late st Contact Info) Description 10/24/2023 Refill Hematology/Oncology at [address] [phone] Cl Hess MD [facility] [address] Malignant neoplasm of head of pancreas; Pancreatic insufficiency Social History Tobacco Use Types Packs/Day Years Used Date Smoking Tobacco: Former Cigarettes 4 30 1 1992 Smokeless Tobacco: Never Alcohol Use Standard Drinks/Week Comments Yes 7 (1 standard drink = 0.6 oz pur e alcohol) [facility] Utilities Answer Date Recorded In the past 12 months has [employer], gas, oil, or water [employer] threatened to shut off services in your [...] Telephone Encounter - Leida Watters RN - 10/24/2023 3:50 PM EDT Ria Champion [facility] Hem Onc Nurse Out of [place]. His Medicaid [place] was canceled somehow. He will be in [place] tomorrow for an appointment. Is way for him pick it up at the [place] pharmacy? [phone] RN Follow-Up Note Received prescription refill request above. Review of chart suggests that this is an appropriate refill request. Prescription pended and routedto Dr. Hess for review and approval, if agreed. 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 Patient called and notified. documented in this encounter Plan of Treatment Upcoming Encounters Date Type Department Care Team (Late st Contact Info) Description 03/24/2024 9:00 AM EST TH Visit (TeleHealth) Radiation Oncology at [address] [phone] Ping Moore PA [facility] DR HEMATOLOGY [place] [address] 03/26/2024 9:30 AM EST Office Visit Hematology/Oncology at [address] [phone] Yessi Renee [address] HEMATOLOGY AND ONCOLOGY [place], [place] [phone] 03/26/2024 9:30 AM EST Infusion Hematology Oncology at [address] [phone] 04/09/2024 9:30 AM EST Office Visit Hematology/Oncology at [address] [phone] Cl Hess MD [facility] [place] [address] Yessi Renee [address] HEMATOLOGY AND ONCOLOGY [place], [place] [address] 04/09/2024 10:00 AM EST Infusion Hematology Oncology at [address] [phone] 04/23/2024 9:30 AM EST Office Visit Hematology/Oncology at [address] [phone] Cl Hess MD [facility] [place] [address] Yessi Renee APRN [address] [place] [address] DR HEMATOLOGY [place] [address] 04/23/2024 10:00 AM EST Infusion Hematology Oncology at [address] [phone] 05/18/2024 4:30 PM EDT TH Visit (TeleHealth) [place] [address] Malachi Rothman MD [facility] [place] [address] documented as of this encounter Visit Diagnoses Diagnosis Malignant neoplasm of head of pancreas Pancreatic insufficiency Other specified disease of pancreas documented in this encounter Care Teams Casing In Line Setter Relationship Specialty Start Date End Date Tristen Hunter MD [address] [place] [address] [place] [address] PCP - General Family Medicine 07/04/23 documented as of this encounter
--- OUTSIDE RECORDS SUMMARY | 2024-03-12 10:52 | XMS_ITS | Encounter Summary ---
[place] [address] Care Team Providers Care Visual Associate Name Role Phone Tristen Hunter MD Primary Care Provider [phone] Encounter Details Date Type Department Care Team (Latest Contact Info) Description 10/30/2023 Specialty [place] [phone] Slim De La Cruz, [facility] Refill Coordination - Manual (lipase/protease/amyl ase) for [...] Notes * Slim De La Cruz [facility] - 10/30/2023 8:47 AM EDT Clinical Management Plan: Refill Specialty Pharmacy Consultation; Slim De La Cruz [facility] Comprehensive Medication Management (CMM) Mr. Wero Sadler [...] the patient5-7 days prior to next refill. Of note, Wero's insurance was inactivated but he has a call on this day to resolve it. We will attempt to fill tomorrow and ship at that time if we get a paid claim. Was a change made to the Care Plan: No Medication Therapy Recommendations No medication therapy recommendations to display Allergies and Drug intolerance: Allergies Allergen Reactions [...] a dye used during vascular procedure at [facility] in [place]: shaking Has tolerated MRI and CT contrast. Pazopanib Other (See Comments) [id number] Poor Metabolizer. See Clinical Pharmacist Note from 07/04/23 for information. Sacituzumab Govitecan-Hziy Other (See Comments) [id number] Poor Metabolizer. See Clinical Pharmacist Note from 07/04/23 for dosing recommendations. Medication Reconciliation Discrepancies (compared to [facility] med list) No Review Flowsheet 10/30/2023 8:58 AM Assessment What is the name of the specialty medication you are refilling? Creon Are you taking any new medications? No Any new medical conditions? No Any new allergies? No Any new side effects that are bothersome? No Any missed doses since your last fill? 0 How many doses do you have remaining on hand? 3 Would you like a pharmacist to reach out to you to answer any questions? No What date will you need this fill by? 11/03/2023 Adherence: Any missed doses? No Patient understands no changes to current drug regimen were made. Slim De La Cruz RPH 10/30/23 9:00 AM documented in this encounter Plan of Treatment Upcoming Encounters Date Type Department Care Team (Late st Contact Info) Description 03/24/2024 9:00 AM EST TH Visit (TeleHealth) Radiation Oncology at [address] [phone] Ping Moore PA [facility] DR HEMATOLOGY [place] [address] 03/26/2024 9:30 AM EST Office Visit Hematology/Oncology at [address] [phone] [address] HEMATOLOGY AND ONCOLOGY [place], [place] [phone] 03/26/2024 9:30 AM EST Infusion Hematology Oncology at [address] [phone] 04/09/2024 9:30 AM EST Office Visit Hematology/Oncology at [address] [phone] Cl Hess MD [facility] [place] [address] [address] HEMATOLOGY AND ONCOLOGY [place], [place] [phone] 04/09/2024 10:00 AM EST Infusion Hematology Oncology at [address] [phone] 04/23/2024 9:30 AM EST Office Visit Hematology/Oncology at [address] [phone] Cl Hess MD [facility] [place] [address] [address] HEMATOLOGY AND ONCOLOGY [place], [place] [phone] 04/23/2024 10:00 AM EST Infusion Hematology Oncology at [address] [phone] 05/18/2024 4:30 PM EDT TH Visit (TeleHealth) [place] [address] Malachi Rothman MD [facility] [place] [address] documented as of this encounter Visit Diagnoses Not on filedocumented in this encounter Care Teams Visual Associate Relationship Specialty Start Date End Date Tristen Hunter MD [address] [place] [address] [place] [address] PCP - General Family Medicine 07/04/23 documented as of this encounter
--- OUTSIDE RECORDS SUMMARY | 2024-03-12 10:52 | XMS_ITS | Encounter Summary ---
[place] [address] Care Team Providers Care Safety Spec Name Role Phone Tristen Hunter MD Primary Care Provider [phone] Reason for Visit * Diagnostic Test (Routine) - Closed Specialty Diagnoses / Procedures Referred By Contac t Referred To Contact Radiology Diagnoses Malignant neoplasm of head of pancreas Procedures Rad Onc Body Interp Only Malachi Rothman MD [facility] [place] [address] [place] [address] Referral ID Status Reason Start Date Expiration Date V isits Requested Visits Authorized [id number] Closed Specialty Service Requested 10/30/2023 05/01/2025 1 1 Encounter Details Date Type Department Care Team (Latest Contact Info) Description 10/30/2023 12:20 PM EDT Ancillary Procedure [place] [address] Malachi Rothman MD [facility] [place] [address] Malignant neoplasm of head of pancreas Social History Tobacco Use Types Packs/Day Years Used Date Smoking Tobacco: Former Cigarettes 30 1 1992 Smokeless Tobacco: Never Alcohol Use Standard Drinks/Week Comments Yes 7 (1 standard drink = 0.6 oz pur e alcohol) [facility] Utilities Answer Date Recorded In [...] TH Visit (TeleHealth) Radiation Oncology at [address] [phone] Ping Moore PA [facility] [place] [address] 03/26/2024 9:30 AM EST Office Visit Hematology/Oncology at [address] [phone] [address] HEMATOLOGY AND ONCOLOGY [place], [place] [phone] 03/26/2024 9:30 AM EST Infusion Hematology Oncology at [address] [phone] 04/09/2024 9:30 AM EST Office Visit Hematology/Oncology at [address] [phone] Cl Hess MD [facility] [address] [address] HEMATOLOGY [place] [address] 04/09/2024 10:00 AM EST Infusion Hematology Oncology at [address] [phone] 04/23/2024 9:30 AM EST Office Visit Hematology/Oncology at [address] [phone] Cl Hess MD [facility] [place] [address] Yessi Renee APRN [address] [place] [address] DR HEMATOLOGY AND ONCOLOGY [place], [place] [address] 04/23/2024 10:00 AM EST Infusion Hematology Oncology at [address] [phone] 05/18/2024 4:30 PM EDT TH Visit (TeleHealth) [place] [address] Malachi Rothman MD [facility] [place] [address] documented as of this encounter Procedures Procedure Name Priority Date/Time Associated Diagnosis Comments MR RAD ONC BODY INTERP ONLY Routine 10/30/2023 12:49 PM EDT Malignant neoplasm of head of pancreas documented in this encounter Results * MR Rad Onc Body Interp Only (10/30/2023 12:49 PM EDT) WORKSTATION ID [id number] [facility] Anatomical Region Laterality Modality Abdomen Magnetic Resonan ce Impressions 10/30/2023 3:[address] and MRI were obtained for radiation therapy planning purposes. I have personally reviewed the image(s) and the resident's interpretation and agree with the findings, Rafael Ansari DO at 10/30/2023 3:26 PM Thank you for letting us participate in the care of this patient. ??If you are a health care provider and have any questions regarding this report, please contact the number below. ??For patients who have questions please contact the health managed care director that requested your imaging first. ? 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 The patient has borderline resectable stage II (T3 N0 M0)., He has no evidence of metastases by CT scan or laparoscopy. He is S/P biliary stent placement. 07/12/23 - Began therapy with mFolfirinox and so far completed 8 cycles. PGX laxmi TECHNIQUE: 1. ??Limited CT without the use of oral or IV contrast performed for the purposes of localization for radiation treatment. 2. ??Limited MRI without contrast performed for the purposes of localization for radiation treatment. COMPARISON: Abdomen/pelvis CT 09/02/2023 FINDINGS: Chest: Lungs and airways: No suspicious opacities within the limitation of respiratory motion. Linear opacities suggestive of scarring versus atelectasis. Stable right lower lobe pulmonary cyst. Soft tissue structures: No mass or adenopathy. Bilateral gynecomastia. Heart, pleura, pericardium: Mildly prominent cardiac size. Status post coronary bypass graft. Aortic valve, mitral valve, coronary, and aortic calcifications. No pericardial effusion. Trace right pleural effusion. No pericardial effusion. Abdomen/pelvis: Solid organs: Contracted gallbladder. Biliary stent present with unchanged intrahepatic biliary duct dilatation and pneumobilia. Stable multiloculated pancreatic head T2 hyperintense cystic lesion communication with probable communication with the pancreatic duct. Pancreatic duct measures measures 1.4 cm. Symmetric bilateral kidneys. No collecting system dilation. No focal lesion. Bowel and mesentery: Small hiatal hernia. Nondistended stomach. Normal course and caliber of the duodenum with. Biliary stent tip in the second portion of the duodenum. No dilated loops of small or large bowel in the visualized abdomen. Large colonic stool burden. Lymph nodes: No adenopathy. Vasculature: Extensive atherosclerotic disease. Normal caliber of the abdominal aorta. 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 The patient has borderline resectable stageII (T3 N0 M0)., He has no evidence of metastases by CT scan or laparoscopy.He is S/P biliary stent placement. 07/12/23 - Began therapy with mFolfirinox andso far completed 8 cycles. PGX laxmi TECHNIQUE: 1. Limited CT without the use of oral or IV contrast performed for thepurposes of localization for radiation treatment. 2. Limited MRI without contrast performed for the purposes oflocalization for radiation treatment. COMPARISON: Abdomen/pelvis CT 09/02/2023 FINDINGS: Chest: Lungs and airways: No suspicious opacities within the limitation ofrespiratory motion. Linear opacities suggestive of scarring versus atelectasis. Stableright lower lobe pulmonary cyst. Soft tissue structures: No mass or adenopathy. Bilateral gynecomastia. Heart, pleura, pericardium: Mildly prominent cardiac size. Status postcoronary bypass graft. Aortic valve, mitral valve, coronary, and aorticcalcifications. No pericardial effusion. Trace right pleural effusion. No pericardialeffusion. Abdomen/pelvis: Solid organs: Contracted gallbladder. Biliary stent present withunchanged intrahepatic biliary duct dilatation and pneumobilia. Stablemultiloculated pancreatic head T2 hyperintense cystic lesion communication withprobable communication with the pancreatic duct. Pancreatic duct measures measures1.4 cm. Symmetric bilateral kidneys. No collecting system dilation. No focallesion. Bowel and mesentery: Small hiatal hernia. Nondistended stomach. Normalcourse and caliber of the duodenum with. Biliary stent tip in the second portionof the duodenum. No dilated loops of small or large bowel in the visualizedabdomen. Large colonic stool burden. Lymph nodes: No adenopathy. Vasculature: Extensive atherosclerotic disease. Normal caliber of theabdominal aorta. Osseous structures: No suspicious lesions IMPRESSION CT and MRI were obtained for radiation therapy planning purposes. I have personally reviewed the image(s) and the resident's interpretationand agree with the findings, Rafael Ansari DO at 10/30/2023 3:26 PM Thank you for letting us participate in the care of this patient. If youare a health care provider and have any questions regarding this report,please contact the number below. For patients who have questions please contactthe health managed care director that requested your imaging first. Malachi Jonas MD IMG MRI ORDERABLES * CT Rad Onc Body Interp Only (10/30/2023 12:04 PM EDT) [place] WORKSTATION ID [id number] RAD Anatomical Region Laterality Modality Abdomen Computed Tomogra phy Impressions 10/30/2023 3:[address] and MRI were obtained for radiation therapy planning purposes. I have personally reviewed the image(s) and the resident's interpretation and agree with the findings, Rafael Ansari DO at 10/30/2023 3:26 PM Thank you for letting us participate in the care of this patient. ??If you are a health care provider and have any questions regarding this report, please contact the number below. ??For patients who have questions please contact the health managed care director that requested your imaging first. ? 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 The patient has borderline resectable stage II (T3 N0 M0)., He has no evidence of metastases by CT scan or laparoscopy. He is S/P biliary stent placement. 07/12/23 - Began therapy with mFolfirinox and so far completed 8 cycles. PGX laxmi TECHNIQUE: 1. ??Limited CT without the use of oral or IV contrast performed for the purposes of localization for radiation treatment. 2. ??Limited MRI without contrast performed for the purposes of localization for radiation treatment. COMPARISON: Abdomen/pelvis CT 09/02/2023 FINDINGS: Chest: Lungs and airways: No suspicious opacities within the limitation of respiratory motion. Linear opacities suggestive of scarring versus atelectasis. Stable right lower lobe pulmonary cyst. Soft tissue structures: No mass or adenopathy. Bilateral gynecomastia. Heart, pleura, pericardium: Mildly prominent cardiac size. Status post coronary bypass graft. Aortic valve, mitral valve, coronary, and aortic calcifications. No pericardial effusion. Trace right pleural effusion. No pericardial effusion. Abdomen/pelvis: Solid organs: Contracted gallbladder. Biliary stent present with unchanged intrahepatic biliary duct dilatation and pneumobilia. Stable multiloculated pancreatic head T2 hyperintense cystic lesion communication with probable communication with the pancreatic duct. Pancreatic duct measures measures 1.4 cm. Symmetric bilateral kidneys. No collecting system dilation. No focal lesion. Bowel and mesentery: Small hiatal hernia. Nondistended stomach. Normal course and caliber of the duodenum with. Biliary stent tip in the second portion of the duodenum. No dilated loops of small or large bowel in the visualized abdomen. Large colonic stool burden. Lymph nodes: No adenopathy. Vasculature: Extensive atherosclerotic disease. Normal caliber of the abdominal aorta. 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 The patient has borderline resectable stageII (T3 N0 M0)., He has no evidence of metastases by CT scan or laparoscopy.He is S/P biliary stent placement. 07/12/23 - Began therapy with mFolfirinox andso far completed 8 cycles. PGX laxmi TECHNIQUE: 1. Limited CT without the use of oral or IV contrast performed for thepurposes of localization for radiation treatment. 2. Limited MRI without contrast performed for the purposes oflocalization for radiation treatment. COMPARISON: Abdomen/pelvis CT 09/02/2023 FINDINGS: Chest: Lungs and airways: No suspicious opacities within the limitation ofrespiratory motion. Linear opacities suggestive of scarring versus atelectasis. Stableright lower lobe pulmonary cyst. Soft tissue structures: No mass or adenopathy. Bilateral gynecomastia. Heart, pleura, pericardium: Mildly prominent cardiac size. Status postcoronary bypass graft. Aortic valve, mitral valve, coronary, and aorticcalcifications. No pericardial effusion. Trace right pleural effusion. No pericardialeffusion. Abdomen/pelvis: Solid organs: Contracted gallbladder. Biliary stent present withunchanged intrahepatic biliary duct dilatation and pneumobilia. Stablemultiloculated pancreatic head T2 hyperintense cystic lesion communication withprobable communication with the pancreatic duct. Pancreatic duct measures measures1.4 cm. Symmetric bilateral kidneys. No collecting system dilation. No focallesion. Bowel and mesentery: Small hiatal hernia. Nondistended stomach. Normalcourse and caliber of the duodenum with. Biliary stent tip in the second portionof the duodenum. No dilated loops of small or large bowel in the visualizedabdomen. Large colonic stool burden. Lymph nodes: No adenopathy. Vasculature: Extensive atherosclerotic disease. Normal caliber of theabdominal aorta. Osseous structures: No suspicious lesions IMPRESSION CT and MRI were obtained for radiation therapy planning purposes. I have personally reviewed the image(s) and the resident's interpretationand agree with the findings, Rafael Ansari DO at 10/30/2023 3:26 PM Thank you for letting us participate in the care of this patient. If youare a health care provider and have any questions regarding this report,please contact the number below. For patients who have questions please contactthe health managed care director that requested your imaging first. Malachi Jonas MD IMG OUTSIDE INTERPRE TATION ORDERABLES documented in this encounter Visit Diagnoses Diagnosis Malignant neoplasm of head of pancreas documented in this encounter Care Teams Safety Spec Relationship Specialty Start Date End Date Tristen Hunter MD [address] [place] [address] [place] [address] PCP - General Family Medicine 07/04/23 documented as of this encounter
--- OUTSIDE RECORDS SUMMARY | 2024-03-12 10:52 | XMS_ITS | Encounter Summary ---
Author Organization [facility] Address [facility] [place] [address] Care Team Providers Care Administrative Tech Name Role Phone Tristen Hunter MD Primary Care Provider [phone] Encounter Details Date Type Department Care Team (Late st Contact Info) Description 11/29/2023 10:30 AM EDT Office Visit Hematology/Oncology at [address] [phone] Cl Hess MD [facility] [place] [address] Yessi Renee, [place] [address] [place] [address] DR HEMATOLOGY [place] [address] Malignant neoplasm of head of pancreas Social History Tobacco Use Types Packs/Day Years Used Date Smoking Tobacco: Former Cigarettes 4 30 1 963 - 1992 Smokeless Tobacco: Never Alcohol Use Standard Drinks/Week Comments Yes 7 (1 standard drink = 0.6 oz pur e alcohol) [facility] Utilities Answer Date Recorded In the [...] Sign Reading Time Taken Comments Blood Pressure 97/49 11/29/2023 10:20 AM EDT Pulse 62 11/29/2023 10:20 AM EDT Temperature 36.2 ??C (97.1 ??F) 11/29/2023 10:20 AM E DT Respiratory Rate 18 11/29/2023 10:20 AM EDT Oxygen Saturation 98% 11/29/2023 10:20 AM EDT Inhaled Oxygen Concentration - - Weight 92.2 kg (203 lb 3.2 oz) 11/29/2023 10:20 AM EDT Height 180.3 cm (5' 10.98) 11/29/2023 10:20 AM EDT Body Mass Index 28.35 11/29/2023 10:20 AM EDT documented in this encounter Progress Notes * Thelma Yessi A, [employer] - 11/29/2023 10:30 AM EDT Subjective Patient ID: Wero Sadler [...] periduodenal or perilesional adenopathy was appreciated Impression: [id number] pancreas head mass lesion with biliary and [...] metastatic disease/disease progression on interim staging evaluation. . [facility] [place] CT c/a/p from [...] vessels redemonstrated I. Completed SBRT on 11/27/23 2. Colorectal cancer S/p resection in 2008 [...] 07/12/23, he began therapy with mFolfirinox, s/p 8 cycles. Wero is by himself in clinic today. He is feeling pretty well. He completed SBRT on Saturday andtolerated it well. Did note a lot of fatigue yesterday, but feeling better today. Denies any pain, nausea, vomiting, or changes to his bowels. Denies fevers or chills. Blood sugars have been pretty stable. He is eating well. His weight is stable. He is taking creon with meals (3-4with meals and 1-2 snacks). 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 He tells me his vision is getting worse and he's almost completely blind. He sees his employment attorney soon. 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 BP 97/49 (Patient Position: Sitting) Pulse 62 Temp 36.2 ??C (97.1 ??F) (Temporal) Resp 18 Ht 180.3 cm (5' 10.98) Wt 92.2 kg (203 lb 3.2 oz) SpO2 98% BMI 28.35 kg/m?? Labs: WBC/ANC 5.08/4799, Hgb/Hct 10.7/33.1, Plts 138,000, BUN/Cr 19/0.58, Alk phos 372 (up from 304), AST 424 (up from 171), ALT 295 (down from 308), t bili 1.3, glucose 73, t protein 6.2, albumin 3.2, remainder of CMP otherwise unremarkable. CA 19-9 11/28/23 pending 11/19/23 70 11/01/23 10/17/23 10/03/23 99 09/19/23 151 08/30/23 242 08/08/23 317 06/25/23 390 05/22/23 684.7 Assessment and Plan Wero Sadler is 73 y.o., seen for evaluation and management of pancreatic cancer. He has a h/o multiple medical problems as above, including colon cancer, prostate cancer, ASCVD, PVDz s/p carotid endarterectomy, prior CVA, DM and others. 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 While in [facility], he presented with chest pain [...] 06/07/23. [place] was [place] [facility] and we also requested that images [...] for mFolfirinox. His case was reviewed at [facility] on 06/18/23. The Ct from 05/22/23 [...] is also being followed by our clinical elementary school reading teacher, Lupe Velasquez. On 07/12/23 he began neoadjuvant [...] with Dr. Rothman in Rad[place] [facility] [place]. He completed SBRT on 11/27/23 and tolerated this as well also. Today, he is feeling well however the rise in his LFTs is concerning. Bilirubin is also mildly elevated. He is asymptomatic and has had no fevers, however this is concerning for stent occlusion. I have reached out to Dr. Lopez and his team will be reaching out to schedule him for an ERCP for suspected impending stent obstruction. Dr. Balbuena and his team will also be reaching out to schedule restaging and eval for surgery in the next 1-2 weeks. We will plan to follow up with Wero about 4 weeks post op, with labs prior. documented in this encounter Plan of Treatment Upcoming Encounters Date Type Department Care Team (Late st Contact Info) Description 03/24/2024 9:00 AM EST TH Visit (TeleHealth) Radiation Oncology at [address] [phone] Ping Moore PA [facility] HEMATOLOGY [place] [address] 03/26/2024 9:30 AM EST Office Visit Hematology/Oncology at [address] [phone] Yessi Renee APRN [address] [place] [address] HEMATOLOGY AND ONCOLOGY [place], [place] [phone] 03/26/2024 9:30 AM EST Infusion Hematology Oncology at [address] [phone] 04/09/2024 9:30 AM EST Office Visit Hematology/Oncology at [address] [phone] Cl Hess MD [facility] [place] [address] Yessi Renee, [address] HEMATOLOGY AND ONCOLOGY [place], [place] [address] 04/09/2024 10:00 AM EST Infusion Hematology Oncology at [address] [phone] 04/23/2024 9:30 AM EST Office Visit Hematology/Oncology at [address] [phone] Cl Hess MD [facility] [place] [address] [address] HEMATOLOGY AND ONCOLOGY [place], [place] [address] 04/23/2024 10:00 AM EST Infusion Hematology Oncology at [address] [phone] 05/18/2024 4:30 PM EDT TH Visit (TeleHealth) [place] [address] Malachi Rothman MD [facility] [place] [address] documented as of this encounter Visit Diagnoses Diagnosis Malignant neoplasm of head of pancreas documented in this encounter Care Teams Administrative Tech Relationship Specialty Start Date End Date Tristen Hunter MD [address] [place] [address] [place] [address] PCP - General Family Medicine 07/04/23 documented as of this encounter
--- OUTSIDE RECORDS SUMMARY | 2024-03-12 10:52 | XMS_ITS | Encounter Summary ---
Author Organization [facility] [place] [address] Care Team Providers Care Sustainability Analyst Name Role Phone Tristen Hunter MD Primary Care Provider [phone] Reason for Visit * Reason Comments Procedure SBRT VR * Consultation (Routine) - Closed Specialty Diagnoses / Procedures Referred By Contac t Referred To Contact Radiation Oncology Diagnoses Malignant neoplasm of prostate Procedures Simulation for Radiation Therapy Planning Malachi Rothman MD [facility] [place] [address] [facility] [place] [address] Referral ID Status Reason Start Date Expiration Date V isits Requested Visits Authorized [id number] Closed Consult, Test & Treat 10/25/2023 10/24/2024 6 6 Encounter Details Date Type Department Care Team (Latest Contact Info) Description 11/25/2023 8:15 AM EDT Procedure visit [place] [address] Malachi Rothman MD [facility] [address] Malignant neoplasm of head of pancreas Social History Tobacco Use Types Packs/Day Years Used Date Smoking Tobacco: Former Cigarettes 4 30 1 963 - 1992 Smokeless Tobacco: Never Alcohol Use Standard Drinks/Week Comments Yes 7 (1 standard drink = 0.6 oz pur e alcohol) [facility] Utilities Answer Date Recorded In the [...] Sign Reading Time Taken Comments Blood Pressure 156/66 11/25/2023 8:08 AM EDT Pulse 53 11/25/2023 8:08 AM EDT Temperature 36.1 ??C (97 ??F) 11/25/2023 8:08 AM EDT Respiratory Rate 21 11/25/2023 8:08 AM EDT Oxygen Saturation 99% 11/25/2023 8:08 AM EDT Inhaled Oxygen Concentration - - Weight 90.1 kg (198 lb 9.6 oz) 11/25/2023 8:08 A M EDT Height - - Body Mass Index 27.71 11/01/2023 9:01 AM EDT documented in this encounter Progress Notes * Malachi Rothman MD - 11/25/2023 8:15 AM EDT Images from the original note were not included. [facility] Medicine Radiation Oncology Radiation Oncology SBRT Procedure Note Patient Identity: Patient name: Wero Sadler Date of : 1950 Chief complaint: Day1 : no nausea or vomiting Day 2: Stable Day 3: doing well with no abdominal pain or nausea. Day 4: Stable Oncologic History: Mr.Philip Adwoa Sadler is a [...] stable CT scan findings. Clinical trial: Medications 11/25/23 0810 Medication Sig Taking? avjyjn-fxlajihg-bfrzufy DR (Creon 24) 24,000-76,000 -120,[address] [...] 20 mg by mouth daily. Yes omega 0-egs-znv-fish oil 250-350-1,000 mg Capsule Take 1,000 mg [...] left eye once a week. Exam: Temp: [36.1 ??C (97 ??F)] Heart Rate: [53] Resp: [21] BP: (156)/(66) SpO2: [99 %] Heart Rate from SpO2: -- KPS: 80 Abdomen: Soft with no organomegaly. Lower extremity: No edema Treatment: Intent: Curative Site: Pancreas Prescription: 50 Gy in 5 fractions Technique: SBRT/MRI guided Radiation Therapy Procedure Detail: Mr. Sadler was in the radiation oncology clinic today for stereotactic body radiation therapy to treat the above diagnosis on the [employer] NETgRT system. he was evaluated pre- treatment in [...] the real-time cine- loop MRI imaging. his 4th of 5 SBRT treatments was successfully delivered. Impression/Plan: Impression: Wero Sadler tolerated treatment without incident. Plan: Continue radiation therapy as planned. documented in this encounter Plan of Treatment Upcoming Encounters Date Type Department Care Team (Late st Contact Info) Description 03/24/2024 9:00 AM EST TH Visit (TeleHealth) Radiation Oncology at [address] [phone] Ping Moore PA [facility] HEMATOLOGY [place] [address] 03/26/2024 9:30 AM EST Office Visit Hematology/Oncology at [address] [phone] [address] HEMATOLOGY AND ONCOLOGY [place], [place] [address] 03/26/2024 9:30 AM EST Infusion Hematology Oncology at [address] [phone] 04/09/2024 9:30 AM EST Office Visit Hematology/Oncology at [address] [phone] Cl Hess MD [facility] [place] [address] [address] HEMATOLOGY AND ONCOLOGY [place], [place] [phone] 04/09/2024 10:00 AM EST Infusion Hematology Oncology at [address] [phone] 04/23/2024 9:30 AM EST Office Visit Hematology/Oncology at [address] [phone] Cl Hess MD [facility] [place] [address] [address] HEMATOLOGY AND ONCOLOGY [place], [place] [address] 04/23/2024 10:00 AM EST Infusion Hematology Oncology at [address] [phone] 05/18/2024 4:30 PM EDT TH Visit (TeleHealth) [place] [address] Malachi Rothman MD [facility] [address] documented as of this encounter Visit Diagnoses Diagnosis Malignant neoplasm of head of pancreas documented in this encounter Care Teams Sustainability Analyst Relationship Specialty Start Date End Date Tristen Hunter MD [address] [place] [address] [place] [address] PCP - General Family Medicine 07/04/23 documented as of this encounter
--- OUTSIDE RECORDS SUMMARY | 2024-03-12 10:52 | XMS_ITS | Encounter Summary ---
[place] [address] Care Team Providers Care Food Order Expediter Name Role Phone Tristen Hunter MD Primary Care Provider [phone] Encounter Details Date Type Department Care Team (Latest Contact Info) Description 11/21/2023 Travel Social History Tobacco Use Types Packs/Day Years Used Date Smoking Tobacco: Former Cigarettes 4 30 1 963 - 1992 Smokeless Tobacco: Never Alcohol Use Standard Drinks/Week Comments Yes 7 (1 standard drink = 0.6 oz pur e alcohol) [facility] Utilities Answer Date Recorded In the past 12 months has [employer] electric, gas, oil, or water company threatened [...] EST TH Visit (TeleHealth) Radiation Oncology at [address] [phone] Ping Moore PA [facility] DR [place] [address] 03/26/2024 9:30 AM EST Office Visit Hematology/Oncology at [address] [phone] Yessi Renee APRN [address] [place] [address] [place] [address] 03/26/2024 9:30 AM EST Infusion Hematology Oncology at [address] [phone] 04/09/2024 9:30 AM EST Office Visit Hematology/Oncology at [address] [phone] Cl Hess MD [facility] [place] [address] [address] HEMATOLOGY AND ONCOLOGY [place], [place] [phone] 04/09/2024 10:00 AM EST Infusion Hematology Oncology at [address] [phone] 04/23/2024 9:30 AM EST Office Visit Hematology/Oncology at [address] [phone] Cl Hess MD [facility] [place] [address] [address] [place] [address] 04/23/2024 10:00 AM EST Infusion Hematology Oncology at [address] [phone] 05/18/2024 4:30 PM EDT TH Visit (TeleHealth) Radiation [place] [address] Malachi Rothman MD [facility] [place] [address] documented as of this encounter Visit Diagnoses Not on filedocumented in this encounter Care Teams Food Order Expediter Relationship Specialty Start Date End Date Tristen Hunter MD [address] [place] [address] [place] [address] PCP - General Family Medicine 07/04/23 documented as of this encounter
--- OUTSIDE RECORDS SUMMARY | 2024-03-12 10:52 | XMS_ITS | Encounter Summary ---
Author Organization [facility] Address [facility] [place] [address] Care Team Providers Care Communications Equipment Operator Name Role Phone Tristen Hunter MD Primary Care Provider [phone] Encounter Details Date Type Department Care Team (Late st Contact Info) Description 10/23/2023 1:45 PM EDT Ancillary Procedure Radiology Library at [facility] [place] [phone] Unknown None Social History Tobacco Use Types Packs/Day Years Used Date Smoking Tobacco: Former Cigarettes 4 30 1 963 - 1992 Smokeless Tobacco: Never Alcohol Use Standard Drinks/Week Comments Yes 7 (1 standard drink = 0.6 oz pur e alcohol) [facility] Utilities Answer Date Recorded In the past 12 months has [employer] electric, gas, oil, or water company threatened [...] TH Visit (TeleHealth) Radiation Oncology at [address] [phone] Ping Moore PA [facility] HEMATOLOGY AND [place] [address] 03/26/2024 9:30 AM EST Office Visit Hematology/Oncology at [address] [phone] Yessi Renee [facility] [address] [place] [address] 03/26/2024 9:30 AM EST Infusion Hematology Oncology at [address] [phone] 04/09/2024 9:30 AM EST Office Visit Hematology/Oncology at [address] [phone] Cl Hess MD [facility] [place] [address] [address] [place] [address] 04/09/2024 10:00 AM EST Infusion Hematology Oncology at [address] [phone] 04/23/2024 9:30 AM EST Office Visit Hematology/Oncology at [address] [phone] Cl Hess MD [facility] [place] [address] [address] HEMATOLOGY AND ONCOLOGY [place], [place] [phone] 04/23/2024 10:00 AM EST Infusion Hematology Oncology at [address] [phone] 05/18/2024 4:30 PM EDT TH Visit (TeleHealth) [place] [address] Malachi Rothman MD [facility] [place] [address] documented as of this encounter Procedures Procedure Name Priority Date/Time Associated Diagnosis Comments FILM LIBRARY STORAGE ONLY CT ABDOMEN AND PELVIS Routine 10/23/2023 1:45 PM EDT documented in this encounter Results * Film Library- Storage Only CT Abdomen & Pelvis (10/23/2023 1:45 PM EDT) 10/31/2023 1:30 PM EDT Narrative [facility] - 10/31/2023 1:30 PM EDT This exam is auto-finalizing. It's purpose is for storage only. Unknown IMG FILM LIBRARY ORD ERABLES [place], [place] documented in this encounter Visit Diagnoses Not on filedocumented in this encounter Care Teams Communications Equipment Operator Relationship Specialty Start Date End Date Tristen Hunter MD [address] [place] [address] [place] [address] PCP - General Family Medicine 07/04/23 documented as of this encounter
--- OUTSIDE RECORDS SUMMARY | 2024-03-12 10:52 | XMS_ITS | Encounter Summary ---
[place] [address] Care Team Providers Care Machine Shop Worker Name Role Phone Tristen Hunter MD Primary Care Provider [phone] Encounter Details Date Type Department Care Team (Latest Contact Info) Description 10/25/2023 Travel Social History Tobacco Use Types Packs/Day Years Used Date Smoking Tobacco: Former Cigarettes 4 30 1 963 - 1992 Smokeless Tobacco: Never Alcohol Use Standard Drinks/Week Comments Yes 7 (1 standard drink = 0.6 oz pur e alcohol) [facility] Utilities Answer Date Recorded In the past 12 months has [employer] electric, gas, oil, or water company threatened [...] in a mcfp (including now)? No 06/04/2023 DH IPV Inpatient [...] TH Visit (TeleHealth) Radiation Oncology at [address] [phone] Ping Moore PA [facility] DR [place] [address] 03/26/2024 9:30 AM EST Office Visit Hematology/Oncology at [address] [phone] Yessi Renee APRN [address] [place] [address] [place] [address] 03/26/2024 9:30 AM EST Infusion Hematology Oncology at [address] [phone] 04/09/2024 9:30 AM EST Office Visit Hematology/Oncology at [address] [phone] Cl Hess MD [facility] [place] [address] [address] HEMATOLOGY AND ONCOLOGY [place], [place] [phone] 04/09/2024 10:00 AM EST Infusion Hematology Oncology at [address] [phone] 04/23/2024 9:30 AM EST Office Visit Hematology/Oncology at [address] [phone] Cl Hess MD [facility] [place] [address] [address] [place] [address] 04/23/2024 10:00 AM EST Infusion Hematology Oncology at [address] [phone] 05/18/2024 4:30 PM EDT TH Visit (TeleHealth) [place] [address] Malachi Rothman MD [facility] [place] [address] documented as of this encounter Visit Diagnoses Not on filedocumented in this encounter Care Teams Machine Shop Worker Relationship Specialty Start Date End Date Tristen Hunter MD [address] [place] [address] [place] [address] PCP - General Family Medicine 07/04/23 documented as of this encounter
--- OUTSIDE RECORDS SUMMARY | 2024-03-12 10:52 | XMS_ITS | Encounter Summary ---
Author Organization [facility] Address [facility] [place] [address] Care Team Providers Care Hand Embroiderer Name Role Phone Tristen Hunter MD Primary Care Provider [phone] Encounter Details Date Type Department Care Team (Late st Contact Info) Description 11/01/2023 9:00 AM EDT Office Visit Hematology/Oncology at [address] [phone] Cl Hess MD [facility] [place] [address] Yessi Renee, ARN[place] [address] [place] [address] DR HEMATOLOGY [place] [address] Malignant neoplasm of head of pancreas Social History Tobacco Use Types Packs/Day Years Used Date Smoking Tobacco: Former Cigarettes 4 30 1 963 - 1992 Smokeless Tobacco: Never Alcohol Use Standard Drinks/Week Comments Yes 7 (1 standard drink = 0.6 oz pur e alcohol) [facility] Utilities Answer Date Recorded In [...] Sign Reading Time Taken Comments Blood Pressure 167/71 11/01/2023 9:01 AM EDT Pulse 74 11/01/2023 9:01 AM EDT Temperature 36.3 ??C (97.3 ??F) 11/01/2023 9:01 AM ED T Respiratory Rate 18 11/01/2023 9:01 AM EDT Oxygen Saturation 98% 11/01/2023 9:01 AM EDT Inhaled Oxygen Concentration - - Weight 91.9 kg (202 lb 9.6 oz) 11/01/2023 9:01 A M EDT Height 180.3 cm (5' 10.98) 11/01/2023 9:01 AM E DT Body Mass Index 28.27 11/01/2023 9:01 AM EDT documented in this encounter Progress Notes * Cl Hess MD - 11/01/2023 9:00 AM EDT Subjective Patient ID: Wero [...] periduodenal or perilesional adenopathy was appreciated Impression: [id number] pancreas head mass lesion with biliary and [...] metastatic disease/disease progression on interim staging evaluation. [facility] second read of CT c/a/p from [...] the abdominal aorta and iliac vessels redemonstrated 2. Colorectal cancer S/p resection in 2008 [...] clinic today. He is feeling pretty well. With the most recent cycle he had some diarrhea which has resolved. He had some low BS's in the AM on a couple of occasions. He talkedwith his PCP and his insulin dose was decreased from 36 units to 32 units. He is eating well. No significant problems with nausea. His weight is stable. He is taking creon with meals (2 with meals and 1 snacks). 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 He has had some cold sensitivity but overall no worsening of symptoms. 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 Labs: WBC/ANC - , Hgb/Hct - , Plts - . BUN/Cr - . CA 19-9 11/01/23 10/17/23 10/03/23 99 09/19/23 151 08/30/23 [...] was recommended but not performed. While in [facility], he presented with chest pain and [...] 06/07/23. Pathology was requested for review at [facility] and we also requested that images be [...] in the absence of cold, hypersensitivity reactions, angina/CT and others. He was given an informational handout regarding mFolfirinox. We reviewed his case at [facility] on 06/18/23. [...] plan was for a blood draw in [facility] once he starts his infusions. If genetic testing showed a BRCA or PALB2 mutation, he may be eligible for a clinical trial looking at theuse olaparib following completion of chemotherapy and surgery to see if this improves RFS. He is also being followed by our clinical outsole cutter machine, Lupe Velasquez. On 07/12/23 he began neoadjuvant [...] with Dr. Rothman in Radiation Oncology at [facility] on 10/25/23. The plan is for SBRT. Simulation hasbeen done and he anticipates that treatment will start in 1- 2 weeks and he will receive 5 fractions. He did not have labs drawn for today's visit. I will have him get these checked when he is at [facility]. We will plan to check on him in 4 weeks. documented in this encounter Plan of Treatment Upcoming Encounters Date Type Department Care Team (Late st Contact Info) Description 03/24/2024 9:00 AM EST TH Visit (TeleHealth) Radiation Oncology at [address] [phone] Ping Moore PA [facility] DR HEMATOLOGY [place] [address] 03/26/2024 9:30 AM EST Office Visit Hematology/Oncology at [address] [phone] Yessi Renee, [address] HEMATOLOGY AND ONCOLOGY [place], [place] [phone] 03/26/2024 9:30 AM EST Infusion Hematology Oncology at [address] [phone] 04/09/2024 9:30 AM EST Office Visit Hematology/Oncology at [address] [phone] Cl Hess MD [facility] [place] [address] Yess[address] Renee [address] HEMATOLOGY AND ONCOLOGY [place], [place] [address] 04/09/2024 10:00 AM EST Infusion Hematology Oncology at [address] [phone] 04/23/2024 9:30 AM EST Office Visit Hematology/Oncology at [address] [phone] Cl Hess MD [facility] [place] [address] Yessi Renee APRN [address] [place] [address] DR HEMATOLOGY AND ONCOLOGY [place], [place] [phone] 04/23/2024 10:00 AM EST Infusion Hematology Oncology at [address] [phone] 05/18/2024 4:30 PM EDT TH Visit (TeleHealth) [place] [address] Malachi Rothman MD [facility] DR [place] [address] Scheduled Orders Name Type Priority Associated Diagnoses Orde r Schedule Carbohydrate Antigen 19-9 Lab Routine Malignant neoplasm of head of pancreas Expected: 11/15/2023 (Approximate), Expires: 05/16/2024 documented as of this encounter Results * (ABNORMAL) Carbohydrate Antigen 19-9 (12/17/2023 12:18 PM EDT) CA 19-9 41.6(H) <=35.0 units/mL 12/17/2023 5:03 PM EDT [facility] Comment:This result was gene rated using a Danni Lita immunoassay. Results obtained from other methods or manufacturers cannot be used interchangeably with this method. Blood VENOUS BLOOD SPECIMEN / Unknown Mediport Line / Unknown 12/17/2023 12:18 PM EDT 12/17/2023 12:27 PM EDT Cl Hess MD CHEMISTRY ORDERABLES [facility] [place] [address] * (ABNORMAL) Comprehensive metabolic panel Non-fasting (12/17/2023 12:18 PM EDT) Glucose 207(H) 65 - 199 mg/dL 12/17/2023 1:11 PM [facility] Comment:Glucose Concentratio n >=200 mg/dL plus symptoms is consistent with Diabetes Mellitus. Blood Urea Nitrogen 14 10 - 20 mg/dL 12/17/2023 1:11 PM [facility] Creatinine 0.55(L) 0.80 - 1.50 mg/dL 12/17/2023 1:11 PM [facility] Sodium 137 135 - 145 mMol/L 12/17/2023 1:11 PM [facility] Potassium 3.8 3.5 - 5.0 mMol/L 12/17/2023 1:11 PM [facility] Chloride 103 98 - 107 mMol/L 12/17/2023 1:11 PM [facility] Carbon Dioxide 24 22 - 31 mMol/L 12/17/2023 1:11 PM [facility] Anion Gap 10 5 - 15 mMol/L 12/17/2023 1:11 PM [facility] Calcium 9.0 8.5 - 10.5 mg/dL 12/17/2023 1:11 PM [facility] Protein, Total 6.5 6.1 - 8.0 g/dL 12/17/2023 1:11 PM [facility] Albumin 4.0 3.2 - 5.2 g/dL 12/17/2023 1:11 PM [facility] Aspartate Aminotransferase 21 <=39 unit/L 12/17/2023 1:11 PM [facility] Alanine Aminotransferase 52 0 - 55 unit/L 12/17/2023 1:11 PM [facility] Alkaline Phosphatase 209(H) 40 - 130 unit/L 12/17/2023 1:11 PM [facility] Bilirubin, Total 0.9 <=1.3 mg/dL 12/17/2023 1:11 PM EDT [facility] Est Glomerular Filtration Rate - Male 103 mL/min/1. 73 m?? 12/17/2023 1:11 PM EDT [facility] Comment: This patient's estimated GFR [...] Fasting Status No 12/17/2023 1:11 PM EDT [facility] Blood VENOUS BLOOD SPECIMEN / Unknown Mediport Line / Unknown 12/17/2023 12:18 PM EDT 12/17/2023 12:27 PM EDT Cl Hess MD CHEMISTRY ORDERABLES [facility] [place] [address] * (ABNORMAL) CBC (with Diff) (12/17/2023 12:18 PM EDT) White Blood Cell 4.14 4.00 - 9.50 x10(3)/mc L 12/17/2023 12:36 PM EDT [facility] Red Blood Cell 3.61(L) 4.58 - 5.54 x10(6)/mc L 12/17/2023 12:36 PM EDT [facility] Hemoglobin 11.0(L) 13.7 - 16.5 g/dL 12/17/2023 12:36 PM EDT [facility] Hematocrit 34.8(L) 40.5 - 48.5 % 12/17/2023 12:36 PM [facility] Mean Cell Volume 96.4(H) 82.9 - 93.1 fL 12/17/2023 12:36 PM [facility] Mean Cell Hemoglobin 30.5 27.5 - 32.1 pg 12/17/2023 12:36 PM [facility] Mean Cell Hemoglobin Concentration 31.6(L) 32.0 - 35.7 g/dL 12/17/2023 12:36 PM [facility] Platelet 129(L) 145 - 357 x10(3)/mc L 12/17/2023 12:36 PM [facility] Mean Platelet Volume 9.9 7.6 - 12.9 fL 12/17/2023 12:36 PM [facility] RDW Standard Deviation 50.1(H) 36.0 - 45.0 fL 12/17/2023 12:36 PM [facility] RDW coefficient of variation 14.2(H) 11.4 - 13.8 % 12/17/2023 12:36 PM [facility] NRBC% auto 0.0 % 12/17/2023 12:36 PM [facility] NRBC Absolute <0.01 <0.01 x10(3)/mc L 12/17/2023 12:36 PM [facility] Neutrophil % 65.4 % 12/17/2023 12:36 PM [facility] Neutrophil Absolute (ANC) - Automated 2.71 1.70 - 6.10 x10(3)/mc L 12/17/2023 12:36 PM [facility] Lymph % 19.1 % 12/17/2023 12:36 PM [facility] Lymph Absolute 0.79(L) 0.90 - 3.20 x10(3)/mc L 12/17/2023 12:36 PM [facility] Monocyte % 12.1 % 12/17/2023 12:36 PM [facility] Monocyte Absolute 0.50 0.30 - 0.90 x10(3)/mc L 12/17/2023 12:36 PM EDT [facility] Eos % 2.4 % 12/17/2023 12:36 PM EDT [facility] Eos Absolute 0.10 0.00 - 0.40 x10(3)/mc L 12/17/2023 12:36 PM EDT [facility] Basophil % 0.5 % 12/17/2023 12:36 PM EDT [facility] Baso Absolute <0.04 0.00 - 0.10 x10(3)/mc L 12/17/2023 12:36 PM EDT [facility] Immature Gran % 0.5 % 12:36 PM EDT [facility] Immature Gran Absolute <0.04 0.00 - 0.04 x10(3)/mc L 12/17/2023 12:36 PM EDT [facility] Blood VENOUS BLOOD SPECIMEN / Unknown Mediport Line / Unknown 12/17/2023 12:18 PM EDT 12/17/2023 12:27 PM EDT Cl Hess MD HEMATOLOGY ORDERABLE S [facility] [place] [address] documented in this encounter Visit Diagnoses Diagnosis Malignant neoplasm of head of pancreas documented in this encounter Care Teams Hand Embroiderer Relationship Specialty Start Date End Date Tristen Hunter MD [address] [place] [address] [place] [address] PCP - General Family Medicine 07/04/23 documented as of this encounter
--- OUTSIDE RECORDS SUMMARY | 2024-03-12 10:52 | XMS_ITS | Encounter Summary ---
Author Organization [facility] [address] Care Team Providers Care Substance Abuse Nurse Name Role Phone Tristen Hunter MD Primary Care Provider [phone] Reason for Visit * Reason Comments Procedure SBRT VR * Consultation (Routine) - Closed Specialty Diagnoses / Procedures Referred By Contac t Referred To Contact Radiation Oncology Diagnoses Malignant neoplasm of prostate Procedures Simulation for Radiation Therapy Planning Malachi Rothman MD [facility] DR RADIATION [place] [address] [facility] [place] [address] Referral ID Status Reason Start Date Expiration Date V isits Requested Visits Authorized [id number] Closed Consult, Test & Treat 10/25/2023 10/24/2024 6 6 Encounter Details Date Type Department Care Team (Latest Contact Info) Description 11/27/2023 12:00 PM EDT Procedure visit [place] [address] Malachi Rothman MD [facility] RADIATION [place] [address] Malignant neoplasm of prostate Social History Tobacco Use Types Packs/Day Years Used Date Smoking Tobacco: Former Cigarettes 4 30 1 963 - 1992 Smokeless Tobacco: Never Alcohol Use Standard Drinks/Week Comments Yes 7 (1 standard drink = 0.6 oz pur e alcohol) [facility] Utilities Answer Date Recorded [...] Sign Reading Time Taken Comments Blood Pressure 141/71 11/27/2023 11:16 AM EDT Pulse 62 11/27/2023 11:16 AM EDT Temperature 36.3 ??C (97.3 ??F) 11/27/2023 1 1:16 AM EDT Respiratory Rate 20 11/27/2023 11:1 6 AM EDT Oxygen Saturation 98% 11/27/2023 11: 16 AM EDT Inhaled Oxygen Concentration - - Weight 89.3 kg (196 lb 12.8 oz) 024 11:16 AM EDT Height - - Body Mass Index 27.46 11/01/2023 9:01 AM EDT documented in this encounter Progress Notes * Malachi Rothman MD - 11/27/2023 12:00 PM EDT Images from the original note were not included. [facility] Medicine Radiation Oncology Radiation Oncology SBRT Procedure Note Patient Identity: Patient name: Wero Sadler Date of : 1950 Chief complaint: Day1 : no nausea or vomiting Day 2: Stable Day 3: doing well with no abdominal pain or nausea. Day 4: Stable Day 5: stable with no nausea or vomiting. Oncologic History: Mr.Philip Adwoa Sadler is a [...] stable CT scan findings. Clinical trial: Medications 11/27/23 1116 Medication Sig Taking? awzkjx-bkquucxd-rvxhvdc DR (Creon 24) 24,000-76,000 -120,[address] [...] 20 mg by mouth daily. Yes omega 3-pjw-vrb-fish oil 250-350-1,000 mg Capsule Take 1,000 mg [...] Temp: [36.3 ??C (97.3 ??F)] Heart Rate: [62] Resp: [20] BP: (141)/(71) SpO2: [98 %] Heart Rate from SpO2: -- KPS: 80 Abdomen: Soft with no organomegaly. Lower extremity: No edema Treatment: Intent: Curative Site: Pancreas Prescription: 50 Gy in 5 fractions Technique: SBRT/MRI guided Radiation Therapy Procedure Detail: Mr. Sadler was in the radiation oncology clinic today for stereotactic body radiation therapy to treat the above diagnosis on the [employer] system. he was evaluated pre- treatment in [...] the real-time cine- loop MRI imaging. his 5th of 5 SBRT treatments was successfully delivered. Impression/Plan: Impression: Wero Sadler tolerated treatment without incident. Plan: Stop radiation therapy as planned. Has a medical oncology follow-up in [address] back to Dr. Balbuena for reevaluation for surgical resection. Follow-up in 6 weeks documented in this encounter Plan of Treatment Upcoming Encounters Date Type Department Care Team (Late st Contact Info) Description 03/24/2024 9:00 AM EST TH Visit (TeleHealth) Radiation Oncology at [address] [phone] Ping Moore PA [facility] HEMATOLOGY [place] [address] 03/26/2024 9:30 AM EST Office Visit Hematology/Oncology at [address] [phone] [address] HEMATOLOGY AND ONCOLOGY [place], [place] [phone] 03/26/2024 9:30 AM EST Infusion Hematology Oncology at [address] [phone] 04/09/2024 9:30 AM EST Office Visit Hematology/Oncology at [address] [phone] Cl Hess MD [facility] [place] [address] [address] HEMATOLOGY AND ONCOLOGY [place], [place] [phone] 04/09/2024 10:00 AM EST Infusion Hematology Oncology at [address] [phone] 04/23/2024 9:30 AM EST Office Visit Hematology/Oncology at [address] [phone] Cl Hess MD [facility] [place] [address] [address] HEMATOLOGY AND ONCOLOGY [place], [place] [phone] 04/23/2024 10:00 AM EST Infusion Hematology Oncology at [address] [phone] 05/18/2024 4:30 PM EDT TH Visit (TeleHealth) [place] [address] Malahci Rothman MD [facility] RADIATION [place] [address] documented as of this encounter Visit Diagnoses Diagnosis Malignant neoplasm of prostate documented in this encounter Care Teams Substance Abuse Nurse Relationship Specialty Start Date End Date Tristen Hunter MD [address] [place] [address] [place] [address] PCP - General Family Medicine 07/04/23 documented as of this encounter
--- OUTSIDE RECORDS SUMMARY | 2024-03-12 10:52 | XMS_ITS | Encounter Summary ---
Author Organization [facility] Address [facility] [place] [address] Care Team Providers Care Deputy Fire Marshal Name Role Phone Tristen Hunter MD Primary Care Provider [phone] Reason for Visit * Reason Comments IV Access * Treatment/Therapy Plan Authorization (Routine) - Authorized Specialty Diagnoses / Procedures Referred By Contac t Referred To Contact Diagnoses Malignant neoplasm of head of pancreas Cl Hess MD [facility] [place] [address] Stj Hem Onc Infusion [address] [place] [phone] Referral ID Status Reason Start Date Expiration Date V isits Requested Visits Authorized [id number] Authorized 11/01/2023 10/31/2024 99 99 Encounter Details Date Type Department Care Team (Late st Contact Info) Description 11/01/2023 10:00 AM EDT Infusion Hematology Oncology at [address] [phone] Malignant neoplasm of head of pancreas Social History Tobacco Use Types Packs/Day Years Used Date Smoking Tobacco: Former Cigarettes 30 1 963 - 1992 Smokeless Tobacco: Never Alcohol Use Standard Drinks/Week Comments Yes 7 (1 standard drink = 0.6 oz pur e alcohol) [facility] Utilities Answer Date Recorded In the [...] as of this encounter Progress Notes * Olga Arshad, RN - 11/01/2023 10:00 AM EDT INFUSION THERAPY ADMINISTRATION NOTES DIAGNOSIS: No diagnosis found. REASON FOR VISIT: MEDIPORT FLUSH ONLY IV ACCESS: Mediport GAUGE: 19G BLOOD RETURN: yes ANY S/S OF INFECTION/EXTRAVASATIONS: no signs of IV complications observed IV FLUSHED WITH: 20cc NS IV DISCONTINUED: yes ASSESSMENT: Patient tolerated treatment well. PLAN: Return to clinic per routine. documented in this encounter Plan of Treatment Upcoming Encounters Date Type Department Care Team (Late st Contact Info) Description 03/24/2024 9:00 AM EST TH Visit (TeleHealth) Radiation Oncology at [address] [phone] Ping Moore PA [facility] [place] [address] 03/26/2024 9:30 AM EST Office Visit Hematology/Oncology at [address] [phone] [address] HEMATOLOGY AND ONCOLOGY [place], [place] [phone] 03/26/2024 9:30 AM EST Infusion Hematology Oncology at [address] [phone] 04/09/2024 9:30 AM EST Office Visit Hematology/Oncology at [address] [phone] Cl Hess MD [facility] [place] [address] HEMATOLOGY AND ONCOLOGY [place], [place] [phone] 04/09/2024 10:00 AM EST Infusion Hematology Oncology at [address] [phone] 04/23/2024 9:30 AM EST Office Visit Hematology/Oncology at [address] [phone] Cl Hess MD [facility] [place] [address] Yessi Renee APRN [address] [place] [address] DR HEMATOLOGY AND ONCOLOGY [place], [place] [address] 04/23/2024 10:00 AM EST Infusion Hematology Oncology at [address] [phone] 05/18/2024 4:30 PM EDT TH Visit (TeleHealth) [place] [address] Malachi Rothman MD [facility] [place] [address] documented as of this encounter Visit Diagnoses Diagnosis Malignant neoplasm of head of pancreas documented in this encounter Administered Medications Inactive Administered Medications - up to 3 most recent administrations Medication Order MAR Action Action Date Dose Rate Site sodium chloride 0.9 % (flush) (BD PosiFlush Normal Saline 0.9) flush 10-20 mL 10-20 mL, Intravenous, EVERY 1 MIN PRN, Starting on Sat11/01/23 at 1032, Until Sat11/01/23 at 1233, Frame Wirer, Routine Given 11/01/2023 10:32 AM EDT 20 mLs documented in this encounter Care Teams Deputy Fire Marshal Relationship Specialty Start Date End Date Tristen Hunter MD [address] [place] [address] [place] [address] PCP - General Family Medicine 07/04/23 documented as of this encounter
--- OUTSIDE RECORDS SUMMARY | 2024-03-12 10:52 | XMS_ITS | Encounter Summary ---
Author Organization [facility] [place] [address] Care Team Providers Care Rigging Man Name Role Phone Tristen Hunter MD Primary Care Provider [phone] Reason for Visit * Reason Comments Procedure SBRT view ray * Consultation (Routine) - Closed Specialty Diagnoses / Procedures Referred By Contac t Referred To Contact Radiation Oncology Diagnoses Malignant neoplasm of prostate Procedures Simulation for Radiation Therapy Planning Malachi Rothman MD [facility] [place] [address] [facility] [place] [address] Referral ID Status Reason Start Date Expiration Date V isits Requested Visits Authorized [id number] Closed Consult, Test & Treat 10/25/2023 10/24/2024 6 6 Encounter Details Date Type Department Care Team (Latest Contact Info) Description 11/18/2023 12:15 PM EDT Procedure visit [place] [address] Malachi Rothman MD [facility] [place] [address] Malignant neoplasm of head of pancreas Social [...] Sign Reading Time Taken Comments Blood Pressure 163/66 11/18/2023 11:33 AM EDT Pulse 77 11/18/2023 11:33 AM EDT Temperature 36.8 ??C (98.2 ??F) 11/18/2023 11:33 AM E DT Respiratory Rate 24 11/18/2023 11:33 AM EDT Oxygen Saturation 99% 11/18/2023 11:33 AM EDT Inhaled Oxygen Concentration - - Weight 90.7 kg (200 lb) 11/18/2023 11:33 AM EDT Height - - Body Mass Index 27.91 11/01/2023 9:01 AM EDT documented in this encounter Progress Notes * Malachi Rothman MD - 11/18/2023 12:15 PM EDT Images from the original note were not included. [facility] Medicine Radiation Oncology Radiation Oncology SBRT Procedure Note Patient Identity: Patient name: Wero Sadler Date of : 1950 Chief complaint: Day1 : no nausea or vomiting Day 2: Stable Oncologic History: Mr.Philip Adwoa Sadler is [...] stable CT scan findings. Clinical trial: Medications 11/18/23 1139 Medication Sig Taking? xeyiqd-suunxjfy-aiekyld DR (Creon 24) 24,000-76,000 -120,[address] [...] Insulin Pen 30 units in the AM Took 15 units 11/15/23 Yes omega 2-cce-yyc-fish oil 250-350-1,000 mg Capsule Take 1,000 mg [...] capsule Take 20 mg by mouth daily. erythromycin (Romycin) 5 mg/gram (0.5 %) Ointment Place 1 Tube into the left eye once a week. Exam: Temp: [36.8 ??C (98.2 ??F)] Heart Rate: [77] Resp: [24] BP: (163)/(66) SpO2: [99 %] Heart Rate from SpO2: -- KPS: 80 Abdomen: Soft with no organomegaly. Lower extremity: No edema Treatment: Intent: Curative Site: Pancreas Prescription: 50 Gy in 5 fractions Technique: SBRT/MRI guided Radiation Therapy Procedure Detail: Mr. Sadler was in the radiation oncology clinic today for stereotactic body radiation therapy to treat the above diagnosis on the [employer] system. he was evaluated pre- treatment in [...] the real-time cine- loop MRI imaging. his 2nd of 5 SBRT treatments was successfully delivered. Impression/Plan: Impression: Wero Sadler tolerated treatment without incident. Plan: Continue radiation therapy as planned. documented in this encounter Plan of Treatment Upcoming Encounters Date Type Department Care Team (Late st Contact Info) Description 03/24/2024 9:00 AM EST TH Visit (TeleHealth) Radiation Oncology at [address] [phone] Ping Moore PA [facility] H[place]AT[place]Y [place] [address] 03/26/2024 9:30 AM EST Office Visit Hematology/Oncology at [address] [phone] [address] HEMATOLOGY AND ONCOLOGY [place], [place] [address] [phone] 03/26/2024 9:30 AM EST Infusion Hematology Oncology at [address] [phone] 04/09/2024 9:30 AM EST Office Visit Hematology/Oncology at [address] [phone] Cl Hess MD [facility] [place] [address] [address] HEMATOLOGY AND ONCOLOGY [place], [place] [address] 04/09/2024 10:00 AM EST Infusion Hematology Oncology at [address] [phone] 04/23/2024 9:30 AM EST Office Visit Hematology/Oncology at [address] [phone] Cl Hess MD [facility] [place] [address] [address] [place]EM[place]OLOGY [place] [address] 04/23/2024 10:00 AM EST Infusion Hematology Oncology at [address] [phone] 05/18/2024 4:30 PM EDT TH Visit (TeleHealth) [place] [address] Malachi Rothman MD [facility] [place] [address] documented as of this encounter Visit Diagnoses Diagnosis Malignant neoplasm of head of pancreas documented in this encounter Care Teams Rigging Man Relationship Specialty Start Date End Date Tristen Hunter MD [address] [place] [address] [place] [address] PCP - General Family Medicine 07/04/23 documented as of this encounter
--- OUTSIDE RECORDS SUMMARY | 2024-03-12 10:52 | XMS_ITS | Encounter Summary ---
[place] [address] Care Team Providers Care Mitten Stitcher Name Role Phone Tristen Hunter MD Primary Care Provider [phone] Reason for Referral * Diagnostic Test (Routine) - Closed Specialty Diagnoses / Procedures Referred By Marques livingston Referred To Contact Radiology Diagnoses Malignant neoplasm of head of pancreas Procedures CT Chest Abdomen Pelvis w Contrast (Generic) Charu Balbuena MD [facility] [place] [address] [facility] [place] [address] Referral ID Status Reason Start Date Expiration Date V isits Requested Visits Authorized [id number] Closed Specialty Service Requested 11/27/2023 05/26/2025 1 1 Encounter Details Date Type Department Care Team (Late st Contact Info) Description 11/27/2023 Orders Only [place] [address] Charu Balbuena MD [facility] [place] [address] Malignant neoplasm of head of pancreas Social History Tobacco Use Types Packs/Day Years Used Date Smoking Tobacco: Former Cigarettes 4 30 1 1992 Smokeless Tobacco: Never Alcohol Use Standard Drinks/Week Comments Yes 7 (1 standard drink = 0.6 oz pur e alcohol) [facility] Utilities Answer Date Recorded In [...] TH Visit (TeleHealth) Radiation Oncology at [address] [phone] Ping Moore PA [facility] DR [place] [address] 03/26/2024 9:30 AM EST Office Visit Hematology/Oncology at [address] [phone] [address]enee [address] HEMATOLOGY AND [place]OGY [place] [phone] 03/26/2024 9:30 AM EST Infusion Hematology Oncology at [address] [phone] 04/09/2024 9:30 AM EST Office Visit Hematology/Oncology at [address] [phone] Cl Hess MD [facility] [place] [place] [address] [address] HEMATOLOGY [place] [address] 04/09/2024 10:00 AM EST Infusion Hematology Oncology at [address] [phone] 04/23/2024 9:30 AM EST Office Visit Hematology/Oncology at [address] [phone] Cl Hess MD [facility] [place] [place] [address] Yessi Renee APRN [address] [place] [address] DR HEMATOLOGY AND [place]COLOGY [place], [place] [address] 04/23/2024 10:00 AM EST Infusion Hematology Oncology at [address] [phone] 05/18/2024 4:30 PM EDT TH Visit (TeleHealth) [place] [phone] Malachi Rothman MD [facility] [place] [address] documented as of this encounter Results * CT Chest Abdomen Pelvis w Contrast (Generic) (12/17/2023 2:09 PM EDT) WORKSTATION ID [id number] RAD Anatomical Region Laterality Modality Abdomen, Pelvis [...] have questions please contact the health care nurse rn that requested your imaging first. ? Narrative [...] with significant calcification of the aorta and [place] coronary vessels. I do not appreciate any [...] with significant calcification of the aorta and [place] coronary vessels. I do notappreciate any bulky [...] the arterial phase series there is persistent fkl-sxercqiefg-vnpvbsugsak along the right and inferior aspect of [...] who have questions please contactthe health care nurse rn that requested your imaging first. 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
--- OUTSIDE RECORDS SUMMARY | 2024-03-12 10:52 | XMS_ITS | Encounter Summary ---
[place] [address] Care Team Providers Care Cloth Inspector Name Role Phone Tristen Hunter MD Primary Care Provider [phone] Reason for Referral * Consultation (Routine) - Closed Specialty Diagnoses / Procedures Referred By Maqrues livingston Referred To Contact Hematology and Oncology Diagnoses Malignant neoplasm of prostate Malignant neoplasm of head of pancreas Malachi Rothman MD [facility] [place] [address] [facility] Hem Onc [address] [place] [address] Referral ID Status Reason Start Date Expiration Date V isits Requested Visits Authorized [id number] Closed Consult, Test & Treat 10/29/2023 10/28/2024 1 1 * Consultation (Routine) - Closed Specialty Diagnoses / Procedures Referred By Contermelinda t Referred To Contact Radiation Oncology Diagnoses Malignant neoplasm of prostate Procedures Simulation for Radiation Therapy Planning Malachi Rothman MD [facility] [place] [address] [facility] [place] [address] Referral ID Status Reason Start Date Expiration Date V isits Requested Visits Authorized [id number] Closed Consult, Test & Treat 10/25/2023 10/24/2024 6 6 Reason for Visit * Reason Comments Radiation Consult * Consultation (Routine) - Closed Specialty Diagnoses / Procedures Referred By Marques livingston Referred To Contact Radiation Oncology Diagnoses Malignant neoplasm of head of pancreas Cl Hess MD [facility] [place] [address] Malachi Rothman MD [facility] [place] [address] Referral ID Status Reason Start Date Expiration Date V isits Requested Visits Authorized [id number] Closed Consult, Test & Treat 10/18/2023 10/17/2024 1 1 Encounter Details Date Type Department Care Team (Late st Contact Info) Description 10/25/2023 10:00 AM EDT Office Visit [place] [address] Malachi Rothman MD [facility] [place] [address] Malignant neoplasm of prostate; Malignant neoplasm of head of pancreas Social History Tobacco Use Types Packs/Day Years Used Date Smoking Tobacco: Former Cigarettes 4 30 1 1992 Smokeless Tobacco: Never Alcohol Use Standard Drinks/Week Comments Yes 7 (1 standard drink = 0.6 oz pur e alcohol) [facility] Utilities Answer Date Recorded In the past 12 months has [employer], gas, oil, or water company threatened to [...] Sign Reading Time Taken Comments Blood Pressure 152/65 10/25/2023 9:30 AM EDT Pulse 67 10/25/2023 9:30 AM EDT Temperature 36.2 ??C (97.1 ??F) 10/25/2023 9 :30 AM EDT Respiratory Rate - - Oxygen Saturation 98% 10/25/2023 9:3 0 AM EDT Inhaled Oxygen Concentration - - Weight 90.3 kg (199 lb) 10/25/2023 9:30 AM EDT fully clothed, shoes on Height - - Body Mass Index 27.77 10/18/2023 9:04 AM EDT documented in this encounter Progress Notes * Kelsey Pruitt RN - 10/25/2023 10:00 AM EDT RADIATION ONCOLOGY NURSING INITIAL NURSING ASSESSMENT IDENTIFICATION: Wero Sadler is a 73 y.o. year-old male with newly diagnosed pancreatic cancer. PRESENTING SYMPTOMS/CHIEF COMPLAINT: Pancreatic cancer Social History Substance and Sexual Activity Alcohol Use Yes Alcohol/week: 7.0 standard drinks of alcohol Types: 7 Cans of beer per week Smoking History: Yes, total pack years, 120; quit in 1992; no vaping history. Alcholol: Red wine 1 glass a night. Drug History: No current drug use Family History of Cancer: Family History Problem Relation Age of Onset Liver Cancer Mother Diabetes Father Brain Cancer Sister Stomach Cancer Brother Melanoma Brother Uterine Cancer Maternal Grandmother Lung Cancer Maternal Grandfather Lung Cancer Maternal Aunt 36 heavy smoker REVIEW OF SYSTEMS: Review of Systems - Oncology .qros IN THE PAST 12 MONTHS HAVE YOU: Fallen more than one time? Yes Injured yourself as result of the fall? No Experienced difficulty with walking/problems with balance? Yes Do you use any assistive devices? No Any history of collagen vascular diseases:No Any Implanted Devices/Hardware: Yes stent in neck, artifical left eye, full upper plate and partiallower. If yes please put alert in ARIA patient summary Prior Radiotherapy: Yes Prostate cancer September 2021 Prior Chemotherapy: Yes Finished 8 sessions last Saturday. Prior Hormone Therapy: Yes for prostate cancer LEARNING ASSESSMENT REVIEWED: Yes ADVANCED DIRECTIVE: none PAIN ASSESSMENT: [0] out of 10 *eD-H Adult PCS Flow Sheet if 4 or above SOCIAL ASSESSMENT: See EDH social assessment information entered. 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 Rothman. * Malachi Rothman MD - 10/25/2023 10:00 AM EDT Radiation Oncology Consultation Note: Wero Sadler is a 73 y.o. male who is seen in consultation in the section of Radiation Oncology at [facility] at the request of Dr. Cl Hess regarding radiation therapy for pancreatic cancer. Patient Active Problem List Diagnosis Malignant neoplasm [...] periduodenal or perilesional adenopathy was appreciated Impression: [id number] pancreas head mass lesion with biliary and [...] evidence of metastatic disease in the chest Review of Systems: See nursing note Contraindications to Radiotherapy: NO: YES: Date, site, [...] Claudication Colon adenocarcinoma 2008 recieved chemo in [place] Coronary artery disease Coronary artery dissection CPAP [...] 0.3) performed by Charu Balbuena MD at [facility] OSC PRO ARTHROPLASTY ACETABULAR/PROX FEM PROSTC AGRFT/ALGRFT Left 10/10/2020 TOTAL HIP ARTHROPLASTY - POSTERIOR (WRVU 20.72) performed by Ismael Wu MD at [facility] MAIN OR PRO ARTHROPLASTY ACETABULAR/PROX FEM PROSTC AGRFT/ALGRFT Right 11/17/2021 TOTAL HIP ARTHROPLASTY - POSTERIOR (WRVU 20.72) performed by Ismael Wu MD at [facility] MAIN OR PRO ENDOSCOPIC US EXAM, ESOPH N/A 07/02/2023 UPPER EUS- ENDOSCOPIC ULTRASOUND (WRVU 3.47) performed by Pako Lopez MD at [facility] ENDOSCOPY PRO ERCP, W/REMOVAL STONE, TARYN/PANCR DUCTS 07/02/2023 ERCP W/REMOVAL CALCULI/DEBRIS FROM BILARY/PANCREATIC DUCT(S) (WRVU 6.63) performed by Pako Lopez MD at [facility] ENDOSCOPY PRO ERCP,DIAGNOSTIC N/A 07/02/2023 ERCP (WRVU 5.85) performed by Pako Lopez MD at [facility] ENDOSCOPY PRO EXPLORATION NOT FOLLOWED BY SURG NECK ARTERY Right 07/14/2021 @EXPLORATION NOT FOLLOWED BY SURGICAL REPAIR, ARTERY; NECK (CAROTID OR SUBCLAVIAN) (WRVU 9.19) performed by Basim Barr MD at [facility] MAIN OR PRO INSERT TUNNELED CV CATH W SUBQ PORT, AGE 5 YRS OR OLDER N/A 07/05/2023 MARIO\AMELIA.CATHETER,TUNNELED, WITH SQ PORT OR PUMP OVER 5YR (WRVU 5.79) performed by Maggi Balbuena MD at [facility] OSC PRO LAP, DIAGNOSTIC ABDOMEN N/A 07/05/2023 LAPAROSCOPY, DIAGNOSTIC, ABDOMEN (WRVU 5.14) performed by Charu Balbuena MD at [facility] OSC PRO LASER VAPORIZATION SURGERY PROSTATE, COMPLETE Midline 02/02/2021 CYSTO, LASER TURP (WRVU 12.15) performed by Cayetano Engle MD at [facility] MAIN OR PRO PLACE TRANSCATHETER STENT, CCA W EMBOLIC PROECT Right 07/14/2021 @TRANSCATH INTRAVASCULAR STENT,CAROTID,PERC,W\EMBOLIC PROT. (WRVU 18) performed by Basim Barr MD at [facility] MAIN OR Medications 10/25/23 0996 Medication Sig Taking? tamsulosin (Flomax) 0.4 mg capsule Take 1 capsule by mouth nightly. Yes Insulin Fiasp FlexTouch U-100 100 unit/mL (3 mL) Insulin Pen Inject 3 mLs subcutaneously 3 times daily (before meals). Yes Insulin Tresiba FlexTouch U-100 100 unit/mL (3 mL) Insulin Pen 30 units in the AM Yes omega 9-sjb-jfm-fish oil 250-350-1,000 mg Capsule Take 1,000 mg [...] <130) Yes timoloL (Timoptic) 0.5 % Drops Yes folic acid (Folvite) 1 mg Tablet Take 1 tablet by mouth daily. Yes isosorbide mononitrate CR (Imdur) 30 mg Tablet Sustained Release 24 hr Take 1 tablet by mouth nightly. Yes atorvastatin (Lipitor) 80 mg Tablet Take 1 tablet by mouth every evening. Yes aspirin EC 81 mg Tablet, Delayed Release (E.C.) Take 81 mg by mouth daily. Yes ywnonj-yyfmzhir-rwkdbih DR (Creon 24) 24,000-76,000 -120,[address] capsule Take 3 per meal three times daily and 2 per snack three times daily (15 capsules/day) ondansetron (Zofran) 8 mg tablet Take 1 tablet by mouth every 8 hours as needed for Nausea. Do not use for 72 hours after chemotherapy Patient not taking: Reported on 10/11/2023 prochlorperazine (Compazine) 10 mg tablet Take 1 tablet by mouth every 6 hours as needed for Nausea. Patient not taking: Reported on 07/26/2023 loperamide (IMODIUM A-D) 2 mg Tablet Take by mouth 4 times daily as needed for Diarrhea. Maximum 16mg in 24 hours chlorthalidone (Hygroton) 25 mg tablet Take 25 mg by mouth daily. omeprazole (PriLOSEC) [address] capsule Take 20 mg by mouth daily. erythromycin (Romycin) 5 mg/gram (0.5 %) Ointment Place 1 Tube into the left eye once a week. 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 Lower extremity: No edema Assessment: Mr.Philip Adwoa Sadler is a very [...] [address] scan findings. Plan: The patient can be considered for chemoradiation as the second phase of treatment. He qualifies forconventionally fractionated regimen versus an SBRT regimen. The aim of radiation therapy is to improve local control and enhance her chance of margin negative resection.The possible side effects of radiation treatment including dyspepsia, nausea, vomiting, gastritis, weight loss, decreased appetite, bowel obstruction, as well as radiation-induced hepatitis, nephropathy, and myelopathy have all been profoundly explained to him. The patient may be candidate for the SMART regimenwith SBRT offered without fiducials. Retrospective review from [facility] showed improved long-term survival in patient treated with increased radiation doses using a range of hypofractionated radiation delivery schedules. High-dose stereotactic body radiation therapy can deliver BED of more than 70 Howard with potential survival improvement based on publications. The patient will be offered the SMART trial delivering 50 Howard in 5 fractions. The possible side effects of treatment including dyspepsia, nausea, vomiting, gastritis, duodenal ulcer and rupture, weight loss, decreased appetite, bowel obstruction, as well as radiation-induced hepatitis, nephropathy, and myelopathy have all been profoundly explained to him. Will schedule him for simulation in few days. Schedule a genetics consult because of his previous history of cancer The time the consultation was 60 minutes, 45 minutes in counseling. Thank you, Dr. Cl Hess , for allowing us to participate in the care of this pleasant patient. documented in this encounter Plan of Treatment Upcoming Encounters Date Type Department Care Team (Late st Contact Info) Description 03/24/2024 9:00 AM EST TH Visit (TeleHealth) Radiation Oncology at [address] [phone] Ping Moore PA [facility] [address] HEMATOLOGY [place] [address] 03/26/2024 9:30 AM EST Office Visit Hematology/Oncology at [address] [phone] Yessi Renee, [address] [place] [address] 03/26/2024 9:30 AM EST Infusion Hematology Oncology at [address] [phone] 04/09/2024 9:30 AM EST Office Visit Hematology/Oncology at [address] [phone] Cl Hess MD [facility] [place] [address] [address] [place] [address] 04/09/2024 10:00 AM EST Infusion Hematology Oncology at [address] [phone] 04/23/2024 9:30 AM EST Office Visit Hematology/Oncology at [address] [phone] Cl Hess MD [facility] [place] [address] [address] [place] [address] 04/23/2024 10:00 AM EST Infusion Hematology Oncology at [address] [phone] 05/18/2024 4:30 PM EDT TH Visit (TeleHealth) [place] [address] Malachi Rothman MD [facility] [place] [address] Scheduled Orders Name Type Priority Associated Diagnoses Orde r Schedule Simulation for Radiation Therapy Planning Radiation Oncology Routine Malignant neoplasm of prostate Expected: 10/25/2023, Expires: 04/25/2024 MRI CSI/2K Screening Form Imaging Routine Expected: 11/01/2023 (Approximate), Expires: 05/02/2024 Scheduled Referrals Name Type Priority Associated Diagnoses Orde r Schedule Referral to Genetics Outpatient Referral Routine Malignant neoplasm of prostate Malignant neoplasm of head of pancreas Ordered: 10/29/2023 documented as of this encounter Visit Diagnoses Diagnosis Malignant neoplasm of prostate Malignant neoplasm of head of pancreas documented in this encounter Care Teams Cloth Inspector Relationship Specialty Start Date End Date Tristen Hunter MD [address] [place] [address] [place] [address] PCP - General Family Medicine 07/04/23 documented as of this encounter
--- OUTSIDE RECORDS SUMMARY | 2024-03-12 10:52 | XMS_ITS | Encounter Summary ---
[place] [address] Care Team Providers Care Thermocouple Tester Name Role Phone Tristen Hunter MD Primary Care Provider [phone] Encounter Details Date Type Department Care Team (Latest Contact Info) Description 11/15/2023 Travel Social History Tobacco Use Types Packs/Day Years Used Date Smoking Tobacco: Former Cigarettes 4 30 1 963 - 1992 Smokeless Tobacco: Never Alcohol Use Standard Drinks/Week Comments Yes 7 (1 standard drink = 0.6 oz pur e alcohol) [facility] Utilities Answer Date Recorded In the past 12 months has [employer], gas, oil, or water company threatened [...] TH Visit (TeleHealth) Radiation Oncology at [address] [phone] Ping Moore PA [facility] DR HEMATOLOGY [place] [address] 03/26/2024 9:30 AM EST Office Visit Hematology/Oncology at [address] [phone] eYssi Renee APRN [address] [place] [address] DR [place] [address] 03/26/2024 9:30 AM EST Infusion Hematology Oncology at [address] [phone] 04/09/2024 9:30 AM EST Office Visit Hematology/Oncology at [address] [phone] Cl Hess MD [facility] [place] [address] [address] HEMATOLOGY AND ONCOLOGY [place], [place] [phone] 04/09/2024 10:00 AM EST Infusion Hematology Oncology at [address] [phone] 04/23/2024 9:30 AM EST Office Visit Hematology/Oncology at [address] [phone] Cl Hess MD [facility] [place] [address] [address] [place] [address] 04/23/2024 10:00 AM EST Infusion Hematology Oncology at [address] [phone] 05/18/2024 4:30 PM EDT TH Visit (TeleHealth) [place] [address] Malachi Rothman MD [facility] [place] [address] documented as of this encounter Visit Diagnoses Not on filedocumented in this encounter Care Teams Thermocouple Tester Relationship Specialty Start Date End Date Tristen Hunter MD [address] [place] [address] [place] [address] PCP - General Family Medicine 07/04/23 documented as of this encounter
--- OUTSIDE RECORDS SUMMARY | 2024-03-12 10:52 | XMS_ITS | Encounter Summary ---
Author Organization [facility] [place] [address] Care Team Providers Care Vegetable Farmer Name Role Phone Tristen Hunter MD Primary Care Provider [phone] Reason for Visit * Reason Comments Procedure SBRT view ray * Consultation (Routine) - Closed Specialty Diagnoses / Procedures Referred By Contac t Referred To Contact Radiation Oncology Diagnoses Malignant neoplasm of prostate Procedures Simulation for Radiation Therapy Planning Malachi Rothman MD [facility] [place] [address] [facility] [place] [address] Referral ID Status Reason Start Date Expiration Date V isits Requested Visits Authorized [id number] Closed Consult, Test & Treat 10/25/2023 10/24/2024 6 6 Encounter Details Date Type Department Care Team (Latest Contact Info) Description 11/15/2023 8:15 AM EDT Procedure visit [place] [phone] Malachi Rothman MD [facility] [place] [address] Malignant neoplasm of head of pancreas Social History Tobacco Use Types Packs/Day Years Used Date Smoking Tobacco: Former Cigarettes 4 30 1 3 - 1992 Smokeless Tobacco: Never Alcohol Use Standard Drinks/Week Comments Yes 7 (1 standard drink = 0.6 oz pur e alcohol) [facility] Utilities Answer Date Recorded In [...] Sign Reading Time Taken Comments Blood Pressure 153/76 11/15/2023 7:48 AM EDT Pulse 66 11/15/2023 7:48 AM EDT Temperature 36.4 ??C (97.5 ??F) 11/15/2023 7:48 AM ED T Respiratory Rate - - Oxygen Saturation 100% 11/15/2023 7:48 AM EDT Inhaled Oxygen Concentration - - Weight 90.3 kg (199 lb) 11/15/2023 7:48 AM EDT Height - - Body Mass Index 27.77 11/01/2023 9:01 AM EDT documented in this encounter Progress Notes * Malachi Rothman MD - 11/15/2023 8:15 AM EDT Images from the original note were not included. [facility] Medicine Radiation Oncology Radiation Oncology SBRT Procedure Note Patient Identity: Patient name: Wero Sadler Date of : 1950 Chief complaint: Day1 : no nausea or vomiting Oncologic History: Mr.Philip Adwoa Sadler is a [...] stable CT scan findings. Clinical trial: Medications 11/15/23 2806 Medication Sig Taking? sygpsj-ycvkhosh-gkmwgls DR (Creon 24) 24,000-76,000 -120,[address] [...] AM Took 15 units 11/15/23 Yes omega 1-rmt-rkw-fish oil 250-350-1,000 mg Capsule Take 1,000 mg [...] left eye once a week. Exam: Temp: [36.4 ??C (97.5 ??F)] Heart Rate: [66] Resp: -- BP: (153)/(76) SpO2: [100 %] Heart Rate from SpO2: -- KPS: 80 Abdomen: Soft with no organomegaly. Lower extremity: No edema Treatment: Intent: Curative Site: Pancreas Prescription: 50 Gy in 5 fractions Technique: SBRT/MRI guided Radiation Therapy Procedure Detail: Mr. Sadler was in the radiation oncology clinic today for stereotactic body radiation therapy to treat the above diagnosis on the [employer] system. he was evaluated pre- treatment in [...] the real-time cine- loop MRI imaging. his 1st of 5 SBRT treatments was successfully delivered. Impression/Plan: Impression: Wero Sadler tolerated treatment without incident. Plan: Continue radiation therapy as planned. documented in this encounter Plan of Treatment Upcoming Encounters Date Type Department Care Team (Late st Contact Info) Description 03/24/2024 9:00 AM EST TH Visit (TeleHealth) Radiation Oncology at [address] [phone] Ping Moore PA [facility] HEMATOLOGY [place] [address] 03/26/2024 9:30 AM EST Office Visit Hematology/Oncology at [address] [phone] [address] [place] [address] 03/26/2024 9:30 AM EST Infusion Hematology Oncology at [address] [phone] 04/09/2024 9:30 AM EST Office Visit Hematology/Oncology at [address] [phone] Cl Hess MD [facility] [place] [address] [address] HEMATOLOGY AND ONCOLOGY [place], [place] [address] 04/09/2024 10:00 AM EST Infusion Hematology Oncology at [address] [phone] 04/23/2024 9:30 AM EST Office Visit Hematology/Oncology at [address] [phone] Cl Hess MD [facility] [place] [address] [address] [place] [address] 04/23/2024 10:00 AM EST Infusion Hematology Oncology at [address] [phone] 05/18/2024 4:30 PM EDT TH Visit (TeleHealth) [place] [address] Malachi Rothman MD [facility] [place] [address] documented as of this encounter Visit Diagnoses Diagnosis Malignant neoplasm of head of pancreas documented in this encounter Care Teams Vegetable Farmer Relationship Specialty Start Date End Date Tristen Hunter MD [address] [place] [address] [place] [address] PCP - General Family Medicine 07/04/23 documented as of this encounter
--- OUTSIDE RECORDS SUMMARY | 2024-03-12 10:52 | XMS_ITS | Encounter Summary ---
[place] [address] Care Team Providers Care Transfer Station Operator Name Role Phone Tristen Hunter MD Primary Care Provider [phone] Reason for Visit * Reason Comments Simulation Consent * Consultation (Routine) - Closed Specialty Diagnoses / Procedures Referred By Contac t Referred To Contact Radiation Oncology Diagnoses Malignant neoplasm of prostate Procedures Simulation for Radiation Therapy Planning Mlaachi Rothman MD [facility] [place] [address] [facility] [place] [address] Referral ID Status Reason Start Date Expiration Date V isits Requested Visits Authorized [id number] Closed Consult, Test & Treat 10/25/2023 10/24/2024 6 6 Encounter Details Date Type Department Care Team (Latest Contact Info) Description 10/30/2023 11:30 AM EDT Ancillary Appointment [place] [address] Malachi Rothman MD [facility] [place] [address] Malignant neoplasm of prostate Social History Tobacco [...] Sign Reading Time Taken Comments Blood Pressure 138/63 10/30/2023 10:57 AM EDT Pulse 69 10/30/2023 10:57 AM EDT Temperature 36.4 ??C (97.5 ??F) 10/30/2023 10:57 AM E DT Respiratory Rate 20 10/30/2023 10:57 AM EDT Oxygen Saturation 98% 10/30/2023 10:57 AM EDT Inhaled Oxygen Concentration - - Weight 92.7 kg (204 lb 4.8 oz) 10/30/2023 10:57 AM EDT Height - - Body Mass Index 28.51 10/18/2023 9:04 AM EDT documented in this encounter Plan of Treatment Upcoming Encounters Date Type Department Care Team (Late st Contact Info) Description 03/24/2024 9:00 AM EST TH Visit (TeleHealth) Radiation Oncology at [address] [phone] Ping Moore PA [facility] DR [place] [address] 03/26/2024 9:30 AM EST Office Visit Hematology/Oncology at [address] [phone] Yessi Renee APRN [address] [place] [address] DR HEMATOLOGY AND ONCOLOGY [place], [place] [address] 03/26/2024 9:30 AM EST Infusion Hematology Oncology at [address] [phone] 04/09/2024 9:30 AM EST Office Visit Hematology/Oncology at [address] [phone] Cl Hess MD [facility] [place] [address] HEMATOLOGY AND ONCOLOGY [place], [place] [address] 04/09/2024 10:00 AM EST Infusion Hematology Oncology at [address] [phone] 04/23/2024 9:30 AM EST Office Visit Hematology/Oncology at [address] [phone] Cl Hess MD [facility] [place] [address] [address] HEMATOLOGY AND ONCOLOGY [place], [place] [address] 04/23/2024 10:00 AM EST Infusion Hematology Oncology at [address] [phone] 05/18/2024 4:30 PM EDT TH Visit (TeleHealth) [place] [address] Malachi Rothman MD [facility] [place] [address] documented as of this encounter Visit Diagnoses Diagnosis Malignant neoplasm of prostate documented in this encounter Care Teams Transfer Station Operator Relationship Specialty Start Date End Date Tristen Hunter MD [address] [place] [address] [place] [address] PCP - General Family Medicine 07/04/23 documented as of this encounter
--- OUTSIDE RECORDS SUMMARY | 2024-03-12 10:52 | XMS_ITS | Encounter Summary ---
Author Organization [facility] Address [facility] [place] [address] Care Team Providers Care Ornamental Metalwork Designer Name Role Phone Tristen Hunter MD Primary Care Provider [phone] Reason for Visit * Reason Comments Chemotherapy [id number] * Treatment/Therapy Plan Authorization (Routine) - Authorized Specialty Diagnoses / Procedures Referred By Contac t Referred To Contact Diagnoses Malignant neoplasm of prostate Cl Hess MD [facility] [place] [address] Stj Hem Onc Infusion [address] [place] [phone] Referral ID Status Reason Start Date Expiration Date V isits Requested Visits Authorized [id number] Authorized 07/11/2023 07/10/2024 99 99 Encounter Details Date Type Department Care Team (Late st Contact Info) Description 10/18/2023 9:30 AM EDT Infusion Hematology Oncology at [address] [phone] Malignant neoplasm of prostate Social History Tobacco [...] as of this encounter Progress Notes * Larisa Henry RN - 10/18/2023 9:30 AM EDT INFUSION THERAPY ADMINISTRATION NOTES DIAGNOSIS: Pancreatic CA CYCLE #: C8D1 REASON FOR VISIT: MODIFIED FOLFIRINOX infusion and initiation of continuous home 5FU infusion via CADD pump provided by [employer] SUBJECTIVE Wero met with MD Hess prior to infusion and found ready to treat. He is excited that this is his last chemotherapy treatment. OBJECTIVE LAB DATA: Labs drawn at [facility] and reviewed and found adequate for treatment. Plt 141; ANC 2 Pre administration: Chemotherapy orders independently verified for drug name, route, and dosage per patient's height, weight and BSA by Larisa Henry RN and [facility]. At time of administration Patient identity verified using patient's name and date of at the chair/bedside by double RN check with XXXX just prior to initiating the patient's home infusion chemotherapy via CADD pump provided by [employer]. Amount infused verified by double RN check after 15 minutes and appropriate amount had infused. 0.7 ccs went in. Pt will be disconnected at [facility] on Saturday10/20/23 at 1210. Confirmed time with Leticia at [facility] infusion. REACTIONS (DESCRIPTION, TIME, INTERVENTION AND EFFECTIVENESS) none ASSESSMENT Wero was awake, alert and tolerated treatment well. Port checked for good blood return and patency per use. PLAN Pump disconnect at [facility] Saturday. Will return for a follow up after his scheduled imaging. documented in this encounter Plan of Treatment Upcoming Encounters Date Type Department Care Team (Late st Contact Info) Description 03/24/2024 9:00 AM EST TH Visit (TeleHealth) Radiation Oncology at [address] [phone] Ping Moore PA [facility] [place] [address] 03/26/2024 9:30 AM EST Office Visit Hematology/Oncology at [address] [phone] Yessi Renee, [address] HEMATOLOGY [place] [address] 03/26/2024 9:30 AM EST Infusion Hematology Oncology at [address] [phone] 04/09/2024 9:30 AM EST Office Visit Hematology/Oncology at [address] [phone] Cl Hess MD [facility] [place] [address] HEMATOLOGY [place] [address] 04/09/2024 10:00 AM EST Infusion Hematology Oncology at [address] [phone] 04/23/2024 9:30 AM EST Office Visit Hematology/Oncology at [address] [phone] Cl Hess MD [facility] [place] [address] [address] HEMATOLOGY [place] [address] 04/23/2024 10:00 AM EST Infusion Hematology Oncology at [address] [phone] 05/18/2024 4:30 PM EDT TH Visit (TeleHealth) [place] [address] Malachi Rothman MD [facility] [place] [address] documented as of this encounter Visit Diagnoses Diagnosis Malignant neoplasm of prostate documented in this encounter Administered Medications Inactive Administered Medications - up to 3 most recent administrations Medication Order MAR Action Action Date Dose Rate Site aprepitant (Cinvanti) (7.2 mg/mL) injection emulsion 130 mg 130 mg, Intravenous, Administer over 2 Minutes, ONCE, 1 dose, On Sat10/18/23 at 0945, Alternative administration of IV push over 2 minutes is a recommendation from the green building materials designer. Administer prior to chemotherapy., Routine Given 10/18/2023 10:01 AM EDT 130 mg atropine (0.1 mg/mL) injection 0.5 mg 0.5 mg, Intravenous, Administer over 1 Minutes, ONCE, 1 dose, On Sat10/18/23 at 0945, Administer prior to IRINOtecan, Routine Given 10/18/2023 12:23 PM EDT 0.5 mg dexAMETHasone (Decadron) tablet 10 mg 10 mg, Oral, ONCE, 1 dose, On Sat10/18/23 at 1015, Administer prior to chemotherapy, Routine Given 10/18/2023 10:04 AM EDT 10 mg fluorouraciL (AdruciL) in sodium chloride 0.9% 138 mL infusion (46 Hour - For Home Use) 5,160 mg 5,160 mg (2,400 mg/m2/dose ? 2.15 m2 Treatment Plan BSA from Recorded weight), Intravenous, ONCE, 1 dose, On Sat10/18/23 at 1415, Administer over 46 Hours, Warning Vesicant/Irritant Medication To be infused via an ambulatory infusion CADD Colon pump continuously IV at 3 mL/hr for 46 hours. Pump contains a 46 hour supply and provides a daily dose of 1,200 mg/m2/day = 2,400 mg/m2 IV over 46 hours. Given 10/18/2023 2:11 PM EDT 5,160 mg 3 mL/hr IRINOtecan (Camptosar) 220 mg in dextrose 5% 511 mL infusion 220 mg (rounded from 225.75 mg = 105 mg/m2/dose ? 2.15 m2 Treatment Plan BSA from Recorded weight), Intravenous, ONCE, 1 dose, On Sat10/18/23 at 1045, Administer over 90 Minutes, Warning Vesicant/Irritant Medication Administer 30 minutes after the start of the leucovorin. New Bag 10/18/2023 12:28 PM EDT 220 mg 340.7 mL/hr leucovorin (Wellcovorin) 350 mg in dextrose 5% 85 mL infusion 350 mg, Intravenous, ONCE, 1 dose, On Sat10/18/23 at 1045, Administer over 120 Minutes, Administer upon completion of OXALIplatin infusion. Do not administer at a rate faster than 160 milligrams/minute. New Bag 10/18/2023 11:54 AM EDT 350 mg 42.5 mL/hr OXALIplatin (Eloxatin) 150 mg in dextrose 5% 280 mL infusion 150 mg (rounded from 146.2 mg = 68 mg/m2/dose ? 2.15 m2 Treatment Plan BSA from Recorded weight), Intravenous, ONCE, 1 dose, On Sat10/18/23 at 1045, Administer over 85 Minutes, Administer first. Compatible with dextrose-containing solution only. Warning Vesicant/Irritant Medication New Bag 10/18/2023 10:07 AM EDT 150 mg 197.6 mL/hr palonosetron (Aloxi) (0.05 mg/mL) injection 0.25 mg 0.25 mg, Intravenous, ONCE, 1 dose, On Sat10/18/23 at 0945, Administer over 30 seconds., Routine Given 10/18/2023 10:01 AM EDT 0.25 mg documented in this encounter Care Teams Ornamental Metalwork Designer Relationship Specialty Start Date End Date Tristen Hunter MD [address] [place] [address] [place] [address] PCP - General Family Medicine 07/04/23 documented as of this encounter
--- OUTSIDE RECORDS SUMMARY | 2024-03-12 10:53 | XMS_ITS | Encounter Summary ---
Author Organization [facility] [place] [address] Care Team Providers Care Farmworker Fryer Farm Name Role Phone Tristen Hunter MD Primary Care Provider [phone] Reason for Referral * Consultation (Routine) - Closed Specialty Diagnoses / Procedures Referred By Marques livingston Referred To Contact Radiation Oncology Diagnoses Malignant neoplasm of head of pancreas Cl Hess MD [facility] [place] [address] Malachi Rothman MD [facility] [place] [address] Referral ID Status Reason Start Date Expiration Date V isits Requested Visits Authorized [id number] Closed Consult, Test & Treat 10/18/2023 10/17/2024 1 1 Encounter Details Date Type Department Care Team (Late st Contact Info) Description 10/18/2023 9:00 AM EDT Office Visit Hematology/Oncology at [address] [phone] Cl Hess MD [facility] [place] [address] Yessi Renee APRN [address] [place] [address] DR HEMATOLOGY AND ONCOLOGY [place], [place] [phone] Malignant neoplasm of head of pancreas Social History Tobacco Use Types Packs/Day Years Used Date Smoking Tobacco: Former Cigarettes 4 30 1 3 - 1992 Smokeless Tobacco: Never Alcohol Use Standard Drinks/Week Comments Yes 7 (1 standard drink = 0.6 oz pur e alcohol) [facility] Utilities Answer Date Recorded In the [...] Sign Reading Time Taken Comments Blood Pressure 153/75 10/18/2023 9:04 AM EDT Pulse 77 10/18/2023 9:04 AM EDT Temperature 36.5 ??C (97.7 ??F) 10/18/2023 9:04 AM ED T Respiratory Rate 18 10/18/2023 9:04 AM EDT Oxygen Saturation 97% 10/18/2023 9:04 AM EDT Inhaled Oxygen Concentration - - Weight 91.8 kg (202 lb 6.4 oz) 10/18/2023 9:04 A M EDT Height 180.3 cm (5' 10.98) 10/18/2023 9:04 AM E DT Body Mass Index 28.24 10/18/2023 9:04 AM EDT documented in this encounter Progress Notes * Cl Hess MD - 10/18/2023 9:00 AM EDT Subjective Patient ID: Wero [...] periduodenal or perilesional adenopathy was appreciated Impression: [id number] pancreas head mass lesion with biliary and [...] on interim staging evaluation. [facility] [place] read of CT c/a/p from 05/22/23 [...] 07/12/23, he began therapy with mFolfirinox, s/p 7 cycles. Wero is by himself in clinic [...] no worsening of symptoms. 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 Labs: WBC/ANC - 3.06/1999, Hgb/Hct - 10.7/33, Plts - 141,000. BUN/Cr - 16/0.68. Glucose - 178, Alb -3.4, alk phos - 161, ALT - 78. Lytes and LFTs, o/w unremarkable CA 19-9 10/17/23 10/03/23 99 09/19/23 151 08/30/23 242 [...] was recommended but not performed. While in [facility], he presented with chest pain and [...] 06/07/23. Pathology was requested for review at [facility] and we also requested that images be [...] in the absence of cold, hypersensitivity reactions, angina/IA and others. He was given an informational handout regarding mFolfirinox. We reviewed his case at [facility] on 06/18/23. The Ct from [...] is also being followed by our clinical statistics teacher, Lupe Velasquez. On 07/12/23 he began neoadjuvant therapy with mFolfirinox. 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 He has received 7 cycles. He is tolerating therapy well overall. We will go ahead with cycle 8 today and see him in two weeks with a restaging CT scan. Assuming that is ok, the plan is for radiation. A referral will be made to Dr. Rothman in Radiation Oncology at [facility] for consideration of SBRT. documented in this encounter Plan of Treatment Upcoming Encounters Date Type Department Care Team (Late st Contact Info) Description 03/24/2024 9:00 AM EST TH Visit (TeleHealth) Radiation Oncology at [address] [phone] Ping Moore PA [facility] [place] [address] 03/26/2024 9:30 AM EST Office Visit Hematology/Oncology at [address] [phone] [address] HEMATOLOGY AND ONCOLOGY [place], [place] [address] 03/26/2024 9:30 AM EST Infusion Hematology Oncology at [address] [phone] 04/09/2024 9:30 AM EST Office Visit Hematology/Oncology at [address] [phone] Cl Hess MD [facility] [place] [address] Yessi Renee [address] HEMATOLOGY AND ONCOLOGY [place], [place] [address] 04/09/2024 10:00 AM EST Infusion Hematology Oncology at [address] [phone] 04/23/2024 9:30 AM EST Office Visit Hematology/Oncology at [address] [phone] Cl Hess MD [facility] [place] [address] Yessi Renee APRN [address] [place] [address] [place] [address] 04/23/2024 10:00 AM EST Infusion Hematology Oncology at [address] [phone] 05/18/2024 4:30 PM EDT TH Visit (TeleHealth) [place] [address] Malachi Rothman MD [facility] [place] [address] Scheduled Referrals Name Type Priority Associated Diagnoses Orde r Schedule Referral to Radiation Oncology Outpatient Referral Routine Malignant neoplasm of head of pancreas Ordered: 10/18/2023 documented as of this encounter Visit Diagnoses Diagnosis Malignant neoplasm of head of pancreas documented in this encounter Care Teams Farmworker Fryer Farm Relationship Specialty Start Date End Date Tristen Hunter MD [address] [place] [address] [place] [address] PCP - General Family Medicine 07/04/23 documented as of this encounter
--- OUTSIDE RECORDS SUMMARY | 2024-03-12 10:53 | XMS_ITS | Encounter Summary ---
Author Organization [facility] Address [facility] [place] [address] Care Team Providers Care Culinary Director Name Role Phone Tristen Hunter MD Primary Care Provider [phone] Encounter Details Date Type Department Care Team (Late st Contact Info) Description 09/02/2023 3:45 PM EDT Ancillary Procedure Radiology [facility] [place] [phone] Unknown None Social History Tobacco Use Types Packs/Day Years Used Date Smoking Tobacco: Former Cigarettes 4 30 1 963 - 1992 Smokeless Tobacco: Never Alcohol Use Standard Drinks/Week Comments Yes 7 (1 standard drink = 0.6 oz pur e alcohol) [facility] Utilities Answer Date Recorded In the past 12 months has [employer] electric, gas, oil, or water company threatened [...] EST TH Visit (TeleHealth) Radiation Oncology at [address] [phone] Ping Moore PA [facility] HEMATOLOGY [place] [address] 03/26/2024 9:30 AM EST Office Visit Hematology/Oncology at [address] [phone] Yessi Renee SOLID WASTE DISPOSAL MANAGER [address] HEMATOLOGY [place] [address] 03/26/2024 9:30 AM EST Infusion Hematology Oncology at [address] [phone] 04/09/2024 9:30 AM EST Office Visit Hematology/Oncology at [address] [phone] Cl Hess MD [facility] [place] [address] HEMATOLOGY [place] [address] 04/09/2024 10:00 AM EST Infusion Hematology Oncology at [address] [phone] 04/23/2024 9:30 AM EST Office Visit Hematology/Oncology at [address] [phone] Cl Hess MD [facility] [place] [address] [address] HEMATOLOGY AND ONCOLOGY [place], [place] [address] 04/23/2024 10:00 AM EST Infusion Hematology Oncology at [address] [phone] 05/18/2024 4:30 PM EDT TH Visit (TeleHealth) [place] [address] Malachi Rothman MD [facility] [address] documented as of this encounter Procedures Procedure Name Priority Date/Time Associated Diagnosis Comments FILM LIBRARY STORAGE ONLY CT ABDOMEN AND PELVIS Routine 09/02/2023 3:45 PM EDT documented in this encounter Results * Film Library- Storage Only CT Abdomen & Pelvis (09/02/2023 3:45 PM EDT) 09/03/2023 8:26 AM EDT Narrative [facility] - 09/03/2023 8:26 AM EDT This exam is auto-finalizing. It's purpose is for storage only. Unknown IMG FILM LIBRARY ORD ERABLES [place], [place] documented in this encounter Visit Diagnoses Not on filedocumented in this encounter Care Teams Culinary Director Relationship Specialty Start Date End Date Tristen Hunter MD [address] [place] [address] [place] [address] PCP - General Family Medicine 07/04/23 documented as of this encounter
--- OUTSIDE RECORDS SUMMARY | 2024-03-12 10:53 | XMS_ITS | Encounter Summary ---
Author Organization [facility] Address [facility] [place] [address] Care Team Providers Care Data Modeler Name Role Phone Tristen Hunter MD Primary Care Provider [phone] Reason for Visit * Reason Comments Chemotherapy * Treatment/Therapy Plan Authorization (Routine) - Authorized Specialty Diagnoses / Procedures Referred By Contac t Referred To Contact Diagnoses Malignant neoplasm of prostate Cl Hess MD [facility] [place] [address] Stj Hem Onc Infusion [address] [place] [phone] Referral ID Status Reason Start Date Expiration Date V isits Requested Visits Authorized [id number] Authorized 07/11/2023 07/10/2024 99 99 Encounter Details Date Type Department Care Team (Late st Contact Info) Description 10/04/2023 9:30 AM EDT Infusion Hematology Oncology at [address] [phone] Malignant neoplasm of prostate Social History Tobacco Use Types Packs/Day Years Used Date Smoking Tobacco: Former Cigarettes 4 30 1 3 - 1992 Smokeless Tobacco: Never Alcohol Use Standard Drinks/Week Comments Yes 7 (1 standard drink = 0.6 oz pur e alcohol) [facility] Utilities Answer Date Recorded In [...] as of this encounter Progress Notes * Angeli Chester, Booker P, RN - 10/04/2023 9:30 AM EDT INFUSION THERAPY ADMINISTRATION NOTES DIAGNOSIS: Pancreatic CA CYCLE #: C7D1 REASON FOR VISIT: MODIFIED FOLFIRINOX infusion and initiation of continuous home 5FU infusion via CADD pump provided by [employer] SUBJECTIVE Wero met with MD Hess prior to infusion. [...] went in. Pt will be disconnected at [facility] on Saturday10/06/23 at 1230 pm. REACTIONS (DESCRIPTION, TIME, INTERVENTION AND EFFECTIVENESS) none ASSESSMENT Wero was awake, alert and tolerated treatment well. Port checked for good blood return and patency per use. PLAN Pump disconnect at [facility] Saturday documented in this encounter Plan of Treatment Upcoming Encounters Date Type Department Care Team (Late st Contact Info) Description 03/24/2024 9:00 AM EST TH Visit (TeleHealth) Radiation Oncology at [address] [phone] Ping Moore PA [facility] HEMATOLOGY [place] [address] 03/26/2024 9:30 AM EST Office Visit Hematology/Oncology at [address] [phone] [address] HEMATOLOGY [place] [address] 03/26/2024 9:30 AM EST Infusion Hematology Oncology at [address] [phone] 04/09/2024 9:30 AM EST Office Visit Hematology/Oncology at [address] [phone] Cl Hess MD [facility] [place] [address] [address] HEMATOLOGY AND ONCOLOGY [place], [place] [address] [phone] 04/09/2024 10:00 AM EST Infusion Hematology Oncology at [address] [phone] 04/23/2024 9:30 AM EST Office Visit Hematology/Oncology at [address] [phone] Cl Hess MD [facility] [place] [address] [address] HEMATOLOGY AND ONCOLOGY [place], [place] [address] 04/23/2024 10:00 AM EST Infusion Hematology Oncology at [address] [phone] 05/18/2024 4:30 PM EDT TH Visit (TeleHealth) [place] [address] Malachi Rothman MD [facility] [address] documented as of this encounter Visit Diagnoses [...] 2 minutes is a recommendation from the truck and transport mechanic. Administer prior to chemotherapy., Routine Given 10/04/2023 [...] mg documented in this encounter Care Teams Data Modeler Relationship Specialty Start Date End Date Tristen Hunter MD [address] [place] [address] [place] [address] PCP - General Family Medicine 07/04/23 documented as of this encounter
--- OUTSIDE RECORDS SUMMARY | 2024-03-12 10:53 | XMS_ITS | Encounter Summary ---
Author Organization [facility] Address [facility] [place] [address] Care Team Providers Care Relations Specialist Name Role Phone Tristen Hunter MD Primary Care Provider [phone] Encounter Details Date Type Department Care Team (Late st Contact Info) Description 09/02/2023 Interpretation Only Radiology Library at [facility] [place] [phone] Unknown None Social History Tobacco Use Types Packs/Day Years Used Date Smoking Tobacco: Former Cigarettes 4 30 1 963 - 1992 Smokeless Tobacco: Never Alcohol Use Standard Drinks/Week Comments Yes 7 (1 standard drink = 0.6 oz pur e alcohol) [facility] Utilities Answer Date Recorded In the past 12 months has e [employer], gas, oil, or water company threatened to [...] in a snf (including now)? No 06/04/2023 DH IPV Inpatient [...] EST TH Visit (TeleHealth) Radiation Oncology at [address] [phone] Ping Moore PA [facility] HEMATOLOGY [place] [address] 03/26/2024 9:30 AM EST Office Visit Hematology/Oncology at [address] [phone] Yessi Renee APRN [address] [place] [address] DR HEMATOLOGY [place] [address] 03/26/2024 9:30 AM EST Infusion Hematology Oncology at [address] [phone] 04/09/2024 9:30 AM EST Office Visit Hematology/Oncology at [address] [phone] Cl Hess MD [facility] [place] [address] [address] HEMATOLOGY AND ONCOLOGY [place], [place] [address] [phone] 04/09/2024 10:00 AM EST Infusion Hematology Oncology at [address] [phone] 04/23/2024 9:30 AM EST Office Visit Hematology/Oncology at [address] [address] Cl Hess MD [facility] [place] [address] [address] HEMATOLOGY AND ONCOLOGY [place], [place] [address] 04/23/2024 10:00 AM EST Infusion Hematology Oncology at [address] [phone] 05/18/2024 4:30 PM EDT TH Visit (TeleHealth) [place] [address] Malachi Rothman MD [facility] [place] [address] documented as of this encounter Procedures Procedure [...] only. Unknown IMG FILM LIBRARY ORD ERABLES [place], [place] documented in this encounter Visit Diagnoses Not on filedocumented in this encounter Care Teams Relations Specialist Relationship Specialty Start Date End Date Tristen Hunter MD [address] [place] [address] [place] [address] PCP - General Family Medicine 07/04/23 documented as of this encounter
--- OUTSIDE RECORDS SUMMARY | 2024-03-12 10:53 | XMS_ITS | Encounter Summary ---
[place] [address] Care Team Providers Care Electrification Adviser Name Role Phone Tristen Hunter MD Primary Care Provider [phone] Reason for Visit * Reason Onset Date Comments Other 09/23/2023 Issue with pump beeping on sat. am Encounter Details Date Type Department Care Team (Late st Contact Info) Description 09/23/2023 Telephone Hematology/Oncology at [address] [phone] Salome Barron RN Other (Issue with pump beeping on sat. am) Social History Tobacco Use Types Packs/Day Years Used Date Smoking Tobacco: Former Cigarettes 4 30 1 963 - 1992 Smokeless Tobacco: Never Alcohol Use Standard Drinks/Week Comments Yes 7 (1 standard drink = 0.6 oz pur e alcohol) [facility] Utilities Answer Date Recorded In the past [...] his therapy and was disconnected Saturday at [facility]. documented in this encounter Plan of Treatment Upcoming Encounters Date Type Department Care Team (Late st Contact Info) Description 03/24/2024 9:00 AM EST TH Visit (TeleHealth) Radiation Oncology at [address] [phone] Ping Moore PA [facility] DR HEMATOLOGY [place] [address] 03/26/2024 9:30 AM EST Office Visit Hematology/Oncology at [address] [phone] Yessi Renee, [address] HEMATOLOGY AND ONCOLOGY [place], [place] [address] 03/26/2024 9:30 AM EST Infusion Hematology Oncology at [address] [phone] 04/09/2024 9:30 AM EST Office Visit Hematology/Oncology at [address] [phone] Cl Hess MD [facility] [place] [address] [address] HEMATOLOGY AND ONCOLOGY [place], [place] [phone] 04/09/2024 10:00 AM EST Infusion Hematology Oncology at [address] [phone] 04/23/2024 9:30 AM EST Office Visit Hematology/Oncology at [address] [phone] Cl Hess MD [facility] [place] [address] Yessi Renee APRN [address] [place] [address] DR HEMATOLOGY AND ONCOLOGY [place], [place] [address] 04/23/2024 10:00 AM EST Infusion Hematology Oncology at [address] [phone] 05/18/2024 4:30 PM EDT TH Visit (TeleHealth) [place] [address] Malachi Rothman MD [facility] [place] [address] documented as of this encounter Visit Diagnoses Not on filedocumented in this encounter Care Teams Electrification Adviser Relationship Specialty Start Date End Date Tristen Hunter MD [address] [place] [address] [place] [address] PCP - General Family Medicine 07/04/23 documented as of this encounter
--- OUTSIDE RECORDS SUMMARY | 2024-03-12 10:53 | XMS_ITS | Encounter Summary ---
[place] [address] Care Team Providers Care Global Analytics Head Name Role Phone Tristen Hunter MD Primary Care Provider [phone] Encounter Details Date Type Department Care Team (Latest Contact Info) Description 09/06/2023 Travel Social History Tobacco Use Types Packs/Day Years Used Date Smoking Tobacco: Former Cigarettes 4 30 1 963 - 1992 Smokeless Tobacco: Never Alcohol Use Standard Drinks/Week Comments Yes 7 (1 standard drink = 0.6 oz pur e alcohol) [facility] Utilities Answer Date Recorded In the past 12 months has [employer] electric, gas, oil, or water company threatened [...] place to sleep or slept in a fci (including now)? No 06/04/2023 DH IPV Inpatient [...] TH Visit (TeleHealth) Radiation Oncology at [address] [phone] Ping Moore PA [facility] DR [place] [address] 03/26/2024 9:30 AM EST Office Visit Hematology/Oncology at [address] [phone] Yessi Renee APRN [address] [place] [address] DR HEMATOLOGY [place] [address] 03/26/2024 9:30 AM EST Infusion Hematology Oncology at [address] [phone] 04/09/2024 9:30 AM EST Office Visit Hematology/Oncology at [address] [phone] Cl Hess MD [facility] [place] [address] HEMATOLOGY AND ONCOLOGY [place], [place] [phone] 04/09/2024 10:00 AM EST Infusion Hematology Oncology at [address] [phone] 04/23/2024 9:30 AM EST Office Visit Hematology/Oncology at [address] [phone] Cl Hess MD [facility] [place] [address] [address] HEMATOLOGY [place] [address] 04/23/2024 10:00 AM EST Infusion Hematology Oncology at [address] [phone] 05/18/2024 4:30 PM EDT TH Visit (TeleHealth) [place] [address] Malachi Rothman MD [facility] [place] [address] documented as of this encounter Visit Diagnoses Not on filedocumented in this encounter Care Teams Global Analytics Head Relationship Specialty Start Date End Date Tristen Hunter MD [address] [place] [address] [place] [address] PCP - General Family Medicine 07/04/23 documented as of this encounter
--- OUTSIDE RECORDS SUMMARY | 2024-03-12 10:53 | XMS_ITS | Encounter Summary ---
[place] [address] Care Team Providers Care Rand Maker Name Role Phone Tristen Hunter MD Primary Care Provider [phone] Encounter Details Date Type Department Care Team (Latest Contact Info) Description 10/11/2023 Travel Social History Tobacco Use Types Packs/Day Years Used Date Smoking Tobacco: Former Cigarettes 4 30 1 963 - 1992 Smokeless Tobacco: Never Alcohol Use Standard Drinks/Week Comments Yes 7 (1 standard drink = 0.6 oz pur e alcohol) [facility] Utilities Answer Date Recorded In the past 12 months has [employer] electric, gas, oil, or water company threatened [...] TH Visit (TeleHealth) Radiation Oncology at [address] [phone] Ping Moore PA [facility] DR [place] [address] 03/26/2024 9:30 AM EST Office Visit Hematology/Oncology at [address] [phone] Yessi Renee APRN [address] [place] [address] DR [place]Y [place] [address] 03/26/2024 9:30 AM EST Infusion Hematology Oncology at [address] [phone] 04/09/2024 9:30 AM EST Office Visit Hematology/Oncology at [address] [phone] Cl Hess MD [facility] [place] [address] HEMATOLOGY AND ONCOLOGY [place], [place] [phone] 04/09/2024 10:00 AM EST Infusion Hematology Oncology at [address] [phone] 04/23/2024 9:30 AM EST Office Visit Hematology/Oncology at [address] [phone] Cl Hess MD [facility] [place] [address] [address] [place] [address] 04/23/2024 10:00 AM EST Infusion Hematology Oncology at [address] [phone] 05/18/2024 4:30 PM EDT TH Visit (TeleHealth) [place] [address] Malachi Rothman MD [facility] [address] documented as of this encounter Visit Diagnoses Not on filedocumented in this encounter Care Teams Rand Maker Relationship Specialty Start Date End Date Tristen Hunter MD [address] [place] [address] [place] [address] PCP - General Family Medicine 07/04/23 documented as of this encounter
--- OUTSIDE RECORDS SUMMARY | 2024-03-12 10:53 | XMS_ITS | Encounter Summary ---
Author Organization [facility] Address [facility] [place] [address] Care Team Providers Care Information Assurance Engineer Name Role Phone Tristen Hunter MD Primary Care Provider [phone] Encounter Details Date Type Department Care Team (Late st Contact Info) Description 08/23/2023 8:30 AM EDT Office Visit Hematology/Oncology at [address] [phone] Cl Hess MD [facility] [place] [address] Yessi Renee, AR[place] [address] [place] [address] DR [place] [address] Malignant neoplasm of head of pancreas; Malignant [...] in a chcf (including now)? No 06/04/2023 IPV Inpatient Questions [...] documented in this encounter Progress Notes * Natashachito Yessi A, SUB PRIOR - 08/23/2023 8:30 AM EDT Subjective Patient [...] periduodenal or perilesional adenopathy was appreciated Impression: [id number] pancreas head mass lesion with biliary and [...] on interim staging evaluation. [facility] second read of CT c/a/p from 05/22/23 [...] due to CVA 14. Genetic testing: Result: [employer]'s CancerNext-Expanded +RNAinsight Panel showed no mutation was [...] chest pain or swelling. 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 While in [facility], he presented with chest pain and SOB [...] was requested for review at [facility] and we also requested that images be sent. His case was reviewed at [facility] on 06/18/23. The [...] will be followed also by our clinical open hearth laborer, Lupe Velasquez. On 07/12/23 he began neoadjuvant [...] TH Visit (TeleHealth) Radiation Oncology at [address] [phone] Ping Moore PA [facility] [place] [address] 03/26/2024 9:30 AM EST Office Visit Hematology/Oncology at [address] [phone] Yessi Renee [address] HEMATOLOGY AND ONCOLOGY [place], [place] [phone] 03/26/2024 9:30 AM EST Infusion Hematology Oncology at [address] [phone] 04/09/2024 9:30 AM EST Office Visit Hematology/Oncology at [address] [phone] Cl Hess MD [facility] [place] [address] Yessi Renee [address] HEMATOLOGY AND ONCOLOGY [place], [place] [address] 04/09/2024 10:00 AM EST Infusion Hematology Oncology at [address] [phone] 04/23/2024 9:30 AM EST Office Visit Hematology/Oncology at [address] [phone] Cl Hess MD [facility] [place] [address] Yessi Renee APRN [address] [place] [address] DR HEMATOLOGY AND ONCOLOGY [place], [place] [address] 04/23/2024 10:00 AM EST Infusion Hematology Oncology at [address] [phone] 05/18/2024 4:30 PM EDT TH Visit (TeleHealth) [place] [address] Malachi Rothman MD [facility] [place] [address] documented as of this encounter Visit Diagnoses Diagnosis Malignant neoplasm of head of pancreas Malignant neoplasm of prostate documented in this encounter Care Teams Information Assurance Engineer Relationship Specialty Start Date End Date Tristen Hunter MD [address] [place] [address] [place] [address] PCP - General Family Medicine 07/04/23 documented as of this encounter
--- OUTSIDE RECORDS SUMMARY | 2024-03-12 10:53 | XMS_ITS | Encounter Summary ---
[place] [address] Care Team Providers Care Office Support Assistant Name Role Phone Tristen Hunter MD Primary Care Provider [phone] Encounter Details Date Type Department Care Team (Latest Contact Info) Description 10/04/2023 Travel Social History Tobacco Use Types Packs/Day Years Used Date Smoking Tobacco: Former Cigarettes 4 30 1 963 - 1992 Smokeless Tobacco: Never Alcohol Use Standard Drinks/Week Comments Yes 7 (1 standard drink = 0.6 oz pur e alcohol) [facility] Utilities Answer Date Recorded In the past 12 months has [employer] electric, gas, oil, or water company threatened [...] TH Visit (TeleHealth) Radiation Oncology at [address] [phone] Ping Moore PA [facility] DR [place] [address] 03/26/2024 9:30 AM EST Office Visit Hematology/Oncology at [address] [phone] Yessi Renee APRN [address] [place] [address] [place] [address] 03/26/2024 9:30 AM EST Infusion Hematology Oncology at [address] [phone] 04/09/2024 9:30 AM EST Office Visit Hematology/Oncology at [address] [phone] Cl Hess MD [facility] [place] [address] [address] HEMATOLOGY AND ONCOLOGY [place], [place] [phone] 04/09/2024 10:00 AM EST Infusion Hematology Oncology at [address] [phone] 04/23/2024 9:30 AM EST Office Visit Hematology/Oncology at [address] [phone] Cl Hess MD [facility] [place] [address] [address] [place] [address] 04/23/2024 10:00 AM EST Infusion Hematology Oncology at [address] [phone] 05/18/2024 4:30 PM EDT TH Visit (TeleHealth) [place] [address] Malachi Rothman MD [facility] [place] [address] documented as of this encounter Visit Diagnoses Not on filedocumented in this encounter Care Teams Office Support Assistant Relationship Specialty Start Date End Date Tristen Hunter MD [address] [place] [address] [place] [address] PCP - General Family Medicine 07/04/23 documented as of this encounter
--- OUTSIDE RECORDS SUMMARY | 2024-03-12 10:53 | XMS_ITS | Encounter Summary ---
Author Organization [facility] Address [facility] [place] [address] Care Team Providers Care Transitional Care Nurse Name Role Phone Tristen Hunter MD Primary Care Provider [phone] Encounter Details Date Type Department Care Team (Late st Contact Info) Description 09/06/2023 9:30 AM EDT Office Visit Hematology/Oncology at [address] [phone] Cl Hess MD [facility] [place] [address] Yessi Renee, ARNOLD [address] [place] [address] [place] [address] Malignant neoplasm of head of pancreas Social History Tobacco Use Types Packs/Day Years Used Date Smoking Tobacco: Former Cigarettes 4 30 1 963 - 1992 Smokeless Tobacco: Never Alcohol Use Standard Drinks/Week Comments Yes 7 (1 standard drink = 0.6 oz pur e alcohol) [facility] Utilities Answer Date Recorded In [...] documented in this encounter Progress Notes * Jimbofran Yessi Awdoa, SELF PROPELLED MINING MACHINE OPERATOR - 09/06/2023 9:30 AM EDT Subjective Patient [...] periduodenal or perilesional adenopathy was appreciated Impression: [id number] pancreas head mass lesion with biliary and [...] disease/disease progression on interim staging evaluation. [facility] second read of CT c/a/p from 05/22/23 - IMPRESSION 1. Mixed cystic and solid mass centered in the pancreatic head, as detailed above. 2. Few scattered sub-5 mm pulmonary nodules are indeterminate. These are likely of an infectious orinflammatory etiology, but do remain indeterminate in the setting of a primary malignancy. Attention on follow-up is recommended. F. Diagnostic laparoscopy 5/3/24 - Findings: There was no evidence of [...] due to CVA 14. Genetic testing: Result: [employer]'s CancerNext-Expanded +RNAinsight Panel showed no mutation was [...] swelling. Abd is soft. 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 He has a h/o multiple medical problems as above, including colon cancer, prostate cancer, ASCVD, PVDz s/p carotid endarterectomy, prior CVA, DM and others. 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 While in [facility], he presented with chest pain and [...] discussed. Pathology was requested for review at [facility] and we also requested that images be sent. His case was reviewed at [facility] on 06/18/23. The Ct from [...] will be followed also by our clinical membership sales manager, Lupe Velasquez. On 07/12/23 he began [...] EST TH Visit (TeleHealth) Radiation Oncology at [address] [phone] Ping Moore PA [facility] DR [place] [address] 03/26/2024 9:30 AM EST Office Visit Hematology/Oncology at [address] [phone] Yessi Renee APRN [address] [place] [address] DR [place] [address] 03/26/2024 9:30 AM EST Infusion Hematology Oncology at [address] [phone] 04/09/2024 9:30 AM EST Office Visit Hematology/Oncology at [address] [phone] Cl Hess MD [facility] [place] [address] [address] [place] [address] 04/09/2024 10:00 AM EST Infusion Hematology Oncology at [address] [phone] 04/23/2024 9:30 AM EST Office Visit Hematology/Oncology at [address] [phone] Cl Hess MD [facility] [place] [address] [address] [place] [address] 04/23/2024 10:00 AM EST Infusion Hematology Oncology at [address] [phone] 05/18/2024 4:30 PM EDT TH Visit (TeleHealth) [place] [address] Malachi Rothman MD [facility] [place] [address] documented as of this encounter Visit Diagnoses Diagnosis Malignant neoplasm of head of pancreas documented in this encounter Care Teams Transitional Care Nurse Relationship Specialty Start Date End Date Tristen Hunter MD [address] [place] [address] [place] [address] PCP - General Family Medicine 07/04/23 documented as of this encounter
--- OUTSIDE RECORDS SUMMARY | 2024-03-12 10:53 | XMS_ITS | Encounter Summary ---
[place] [address] Care Team Providers Care Senior Nuclear Medicine Technologist Name Role Phone Tristen Hunter MD Primary Care Provider [phone] Encounter Details Date Type Department Care Team (Latest Contact Info) Description 08/23/2023 Travel Social History Tobacco Use Types Packs/Day Years Used Date Smoking Tobacco: Former Cigarettes 4 30 1 963 - 1992 Smokeless Tobacco: Never Alcohol Use Standard Drinks/Week Comments Yes 7 (1 standard drink = 0.6 oz pur e alcohol) [facility] Utilities Answer Date Recorded In the past 12 months has [employer] electric, gas, oil, or water company threatened [...] EST TH Visit (TeleHealth) Radiation Oncology at [address] [phone] Ping Moore PA [facility] DR [place] [address] 03/26/2024 9:30 AM EST Office Visit Hematology/Oncology at [address] [phone] Yessi Renee APRN [address] [place] [address] DR HEMATOLOGY [place] [address] 03/26/2024 9:30 AM EST Infusion Hematology Oncology at [address] [phone] 04/09/2024 9:30 AM EST Office Visit Hematology/Oncology at [address] [phone] Cl Hess MD [facility] [place] [address] [address] HEMATOLOGY AND ONCOLOGY [place], [place] [phone] 04/09/2024 10:00 AM EST Infusion Hematology Oncology at [address] [phone] 04/23/2024 9:30 AM EST Office Visit Hematology/Oncology at [address] [phone] Cl Hess MD [facility] [place] [address] [address] HEMATOLOGY [place] [address] 04/23/2024 10:00 AM EST Infusion Hematology Oncology at [address] [phone] 05/18/2024 4:30 PM EDT TH Visit (TeleHealth) [place] [address] Malachi Rothman MD [facility] [place] [address] documented as of this encounter Visit Diagnoses Not on filedocumented in this encounter Care Teams Senior Nuclear Medicine Technologist Relationship Specialty Start Date End Date Tristen Hunter MD [address] [place] [address] [place] [address] PCP - General Family Medicine 07/04/23 documented as of this encounter
--- OUTSIDE RECORDS SUMMARY | 2024-03-12 10:53 | XMS_ITS | Encounter Summary ---
Author Organization [facility] [place] [address] Care Team Providers Care Seafood Service Team Member Name Role Phone Tristen Hunter MD Primary Care Provider [phone] Reason for Visit * Diagnostic Test (Routine) - Closed Specialty Diagnoses / Procedures Referred By Marques livingston Referred To Contact Diagnoses Symptomatic stenosis of both carotid arteries Procedures Carotid Duplex, Bilateral Basim Barr MD [facility] [place] [address] [facility] Vascular Lab [address] [place] [address] Referral ID Status Reason Start Date Expiration Date V isits Requested Visits Authorized [id number] Closed Specialty Service Requested 10/23/2022 11/26/2023 1 1 Encounter Details Date Type Department Care Team (Late st Contact Info) Description 10/11/2023 10:00 AM EDT Tech Visit [place] [address] Giacomo Queen Symptomatic stenosis of both carotid arteries Social History Tobacco Use Types Packs/Day Years Used Date Smoking Tobacco: Former Cigarettes 4 30 1 963 - 1992 Smokeless Tobacco: Never Alcohol Use Standard Drinks/Week Comments Yes 7 (1 standard drink = 0.6 oz pur e alcohol) [facility] Utilities Answer Date Recorded In [...] EST TH Visit (TeleHealth) Radiation Oncology at [address] [phone] Ping Moore PA [facility] HEMATOLOGY [place] [address] 03/26/2024 9:30 AM EST Office Visit Hematology/Oncology at [address] [phone] [address] HEMATOLOGY AND ONCOLOGY [place], [place] [phone] 03/26/2024 9:30 AM EST Infusion Hematology Oncology at [address] [phone] 04/09/2024 9:30 AM EST Office Visit Hematology/Oncology at [address] [phone] Cl Hess MD [facility] [place] [address] Y[address]e [address] HEMATOLOGY AND ONCOLOGY [place], [place] [phone] 04/09/2024 10:00 AM EST Infusion Hematology Oncology at [address] [phone] 04/23/2024 9:30 AM EST Office Visit Hematology/Oncology at [address] [phone] Cl Hess MD [facility] [place] [address] [address] [place] [address] 04/23/2024 10:00 AM EST Infusion Hematology Oncology at [address] [phone] 05/18/2024 4:30 PM EDT TH Visit (TeleHealth) [place] [address] Malachi Rothman MD [facility] [place] [address] documented as of this encounter Procedures Procedure Name Priority Date/Time Associated Diagnosis Comments CAROTID DUPLEX, BILATERAL Routine 10/11/2023 9:30 AM EDT Symptomatic stenosis of both carotid arteries documented in this encounter Results * Carotid Duplex, Bilateral (10/11/2023 9:30 AM EDT) VB Text Report Department: Vascular Surgery Lab Patient: [id number] (THA JARRETT) CPT: 43407 Referring Physician: BASIM BARR ?? Indications:Rig ht TCAR. ? Change. Findings: Stent 1 - Pre ? PSV (cm/s): 42 ? EDV (cm/s): 13 ? Location: Right CCA Distal Stent 1 - Prox ? PSV (cm/s): 47 ? EDV (cm/s): 15 ? Location: Right CCA Distal Stent 1 - Mid ? PSV (cm/s): 71 ? EDV (cm/s): 15 Stent 1 - Distal ? PSV (cm/s): 67 ? EDV (cm/s): 18 ? Location: Right Internal Carotid Stent 1 - Post ? PSV (cm/s): 69 ? EDV (cm/s): 15 ? Location: Right Internal Carotid ICA Proximal, Right ? PSV (cm/s): 71 ? EDV (cm/s): 14 ? ICA/CCA: 1.8 ? Plaque Structure: Echogenic ? Plaque Surface: Smooth ? %Stenosis: <15% ICA Distal, Right ? PSV (cm/s): 70 ? EDV (cm/s): 20 ? ICA/CCA: 1.8 CCA Distal, Right ? PSV (cm/s): 40 ? EDV (cm/s): 12 ? %Stenosis: <50% CCA Proximal, Right ? PSV (cm/s): 61 ? EDV (cm/s): 14 External Carotid Artery, Right ? PSV (cm/s): 230 ? EDV (cm/s): 17 ? %Stenosis: >50% Vertebral, Right ? PSV (cm/s): 73 ? EDV (cm/s): 14 ? Direction of Flow: Antegrade ICA Proximal, Left ? PSV (cm/s): 102 ? EDV (cm/s): 13 ? ICA/CCA: 1.1 ? Plaque Structure: Echogenic ? Plaque Surface: Smooth ? %Stenosis: 16-49% ICA Distal, Left ? PSV (cm/s): 93 ? EDV (cm/s): 25 ? ICA/CCA: 1.0 CCA Distal, Left ? PSV (cm/s): 89 ? EDV (cm/s): 21 ? %Stenosis: <50% CCA Proximal, Left ? PSV (cm/s): 118 ? EDV (cm/s): 25 External Carotid Artery, Left ? PSV (cm/s): 133 ? EDV (cm/s): 13 ? %Stenosis: >50% Vertebral, Left ? PSV (cm/s): 72 ? EDV (cm/s): 21 ? Direction of Flow: Antegrade Interpretation: RIGHT: There is bulky irregular plaque in the proximal internal carotid artery causing <15% stenosis when compared to the more distal internal carotid artery. The bifurcation level is in the mid neck. LEFT: There is bulky irregular plaque in the proximal internal carotid [...] 74 ?2.30 ? 16-49% ? 97 ?1.00 ? <15% ? 73 ?2.40 ? 16-49% ? 76 ?0.80 Current Exam ? <15% ? 71 ?1.80 ? 16-49% ? 102 ?? 1.10 Electronically Signed by: SILVERIO VILLASEÑOR MD on 2023-10-11 05:23:16 PM [facility] VB Text Report End of Report [facility] 10/11/2023 9:30 AM EDT Basim Barr MD VASCULAR [facility] documented in this encounter Visit Diagnoses Diagnosis Symptomatic stenosis of both carotid arteries documented in this encounter Care Teams Seafood Service Team Member Relationship Specialty Start Date End Date Tristen Hunter MD [address] [place] [address] [place] [address] PCP - General Family Medicine 07/04/23 documented as of this encounter
--- OUTSIDE RECORDS SUMMARY | 2024-03-12 10:53 | XMS_ITS | Encounter Summary ---
Author Organization [facility] Address [facility] [place] [address] Care Team Providers Care Counter Weigher Name Role Phone Tristen Hunter MD Primary Care Provider [phone] Encounter Details Date Type Department Care Team (Late st Contact Info) Description 09/02/2023 10:40 AM EDT Ancillary Procedure Radiology Library at [facility] [place] [phone] Unknown None Social History Tobacco Use Types Packs/Day Years Used Date Smoking Tobacco: Former Cigarettes 4 30 1 963 - 1992 Smokeless Tobacco: Never Alcohol Use Standard Drinks/Week Comments Yes 7 (1 standard drink = 0.6 oz pur e alcohol) [facility] Utilities Answer Date Recorded In the past 12 months has [employer], gas, oil, or water company threatened [...] EST TH Visit (TeleHealth) Radiation Oncology at [address] [phone] Ping Moore PA [facility] HEMATOLOGY [place] [address] 03/26/2024 9:30 AM EST Office Visit Hematology/Oncology at [address] [phone] Yessi Renee [employer]ING [employer] [address] [place] [address] 03/26/2024 9:30 AM EST Infusion Hematology Oncology at [address] [phone] 04/09/2024 9:30 AM EST Office Visit Hematology/Oncology at [address] [phone] Cl Hess MD [facility] [place] [address] [address] [place] [address] 04/09/2024 10:00 AM EST Infusion Hematology Oncology at [address] [phone] 04/23/2024 9:30 AM EST Office Visit Hematology/Oncology at [address] [phone] Cl Hess MD [facility] [place] [place] [address] [address] HEMATOLOGY AND ONCOLOGY [place], [place] [address] 04/23/2024 10:00 AM EST Infusion Hematology Oncology at [address] [phone] 05/18/2024 4:30 PM EDT TH Visit (TeleHealth) [place] [address] Malachi Rothman MD [facility] [place] [address] documented as of this encounter Procedures Procedure Name Priority Date/Time Associated Diagnosis Comments FILM LIBRARY STORAGE ONLY MR PELVIS Routine 09/02/2023 10:40 AM EDT documented in this encounter Results * Film Library- Storage Only MR Pelvis (09/02/2023 10:40 AM EDT) 09/03/2023 8:26 AM EDT Narrative EUFEMIA - 09/03/2023 8:26 AM EDT This exam is auto-finalizing. It's purpose is for storage only. Unknown IMG FILM LIBRARY ORD ERABLES [place], [place] documented in this encounter Visit Diagnoses Not on filedocumented in this encounter Care Teams Counter Weigher Relationship Specialty Start Date End Date Tristen Hunter MD [address] [place] [address] [place] [address] PCP - General Family Medicine 07/04/23 documented as of this encounter
--- OUTSIDE RECORDS SUMMARY | 2024-03-12 10:53 | XMS_ITS | Encounter Summary ---
Author Organization [facility] Address [facility] [place] [address] Care Team Providers Care Furnace And Wash Equipment Operator Name Role Phone Tristen Hunter MD Primary Care Provider [phone] Reason for Visit * Reason Comments Chemotherapy * Treatment/Therapy Plan Authorization (Routine) - Authorized Specialty Diagnoses / Procedures Referred By Contac t Referred To Contact Diagnoses Malignant neoplasm of prostate Cl Hess MD [facility] [place] [address] Stj Hem Onc Infusion [address] [place] [phone] Referral ID Status Reason Start Date Expiration Date V isits Requested Visits Authorized [id number] Authorized 07/11/2023 07/10/2024 99 99 Encounter Details Date Type Department Care Team (Late st Contact Info) Description 09/06/2023 10:00 AM EDT Infusion Hematology Oncology at [address] [phone] Malignant neoplasm of prostate Social History Tobacco Use Types Packs/Day Years Used Date Smoking Tobacco: Former Cigarettes 4 30 1 3 - 1992 Smokeless Tobacco: Never Alcohol Use Standard Drinks/Week Comments Yes 7 (1 standard drink = 0.6 oz pur e alcohol) [facility] Utilities Answer Date Recorded In the [...] * Angeli [place], Booker P, RN - 09/06/2023 10:00 AM EDT INFUSION THERAPY ADMINISTRATION NOTES DIAGNOSIS: Pancreatic CA CYCLE #: C5D1 REASON FOR VISIT: MODIFIED FOLFIRINOX infusion and initiation of continuous home 5FU infusion via CADD pump provided by [employer] SUBJECTIVE Wero met with Marilee prior to infusion. Dex [...] patency per use. PLAN Pump disconnect at [facility] Saturday 1255H per Fanny. documented in this encounter Plan of Treatment Upcoming Encounters Date Type Department Care Team (Late st Contact Info) Description 03/24/2024 9:00 AM EST TH Visit (TeleHealth) Radiation Oncology at [address] [phone] Ping Moore PA [facility] DR [place] [address] 03/26/2024 9:30 AM EST Office Visit Hematology/Oncology at [address] [phone] Yessi Renee APRN [address] [place] [address] DR HEMATOLOGY [place] [address] 03/26/2024 9:30 AM EST Infusion Hematology Oncology at [address] [phone] 04/09/2024 9:30 AM EST Office Visit Hematology/Oncology at [address] [phone] Cl Hess MD [facility] [place] [address] [address] HEMATOLOGY AND ONCOLOGY [place], [place] [address] 04/09/2024 10:00 AM EST Infusion Hematology Oncology at [address] [phone] 04/23/2024 9:30 AM EST Office Visit Hematology/Oncology at [address] [phone] Cl Hess MD [facility] [place] [address] [address] HEMATOLOGY AND ONCOLOGY [place], [place] [address] 04/23/2024 10:00 AM EST Infusion Hematology Oncology at [address] [phone] 05/18/2024 4:30 PM EDT TH Visit (TeleHealth) [place] [address] Malachi Rothman MD [facility] [place] [address] documented as of this encounter Visit Diagnoses [...] 2 minutes is a recommendation from the mitten sewer. Administer prior to chemotherapy., Routine Given 09/06/2023 [...] mg documented in this encounter Care Teams Furnace And Wash Equipment Operator Relationship Specialty Start Date End Date Tristen Hunter MD [address] [place] [address] [place] [address] PCP - General Family Medicine 07/04/23 documented as of this encounter
--- OUTSIDE RECORDS SUMMARY | 2024-03-12 10:53 | XMS_ITS | Encounter Summary ---
[place] [address] Care Team Providers Care Lead Technical Writer Name Role Phone Tristen Hunter MD Primary Care Provider [phone] Reason for Referral * Diagnostic Test (Routine) - Authorized Specialty Diagnoses / Procedures Referred By Contermelinda t Referred To Contact Diagnoses Presence of internal carotid stent Procedures Carotid Duplex, Bilateral Basim Glasgow MD [facility] [place] [address] [facility] Vascular Lab [address] [place] [address] Referral ID Status Reason Start Date Expiration Date Visits Requested Visits Authorized [id number] Authorized Specialty Service Requested 10/11/2023 10/10/2024 1 1 Encounter Details Date Type Department Care Team (Late st Contact Info) Description 10/11/2023 11:15 AM EDT Office Visit [place] [address] Basim Glasgow MD [facility] [place] [address] Presence of internal carotid stent Social History [...] Sign Reading Time Taken Comments Blood Pressure 140/110 10/11/2023 11:21 AM EDT Pulse 67 10/11/2023 11:21 AM EDT Temperature - - Respiratory Rate - - Oxygen Saturation 99% 10/11/2023 11:19 AM EDT Inhaled Oxygen Concentration - - Weight 90.7 kg (200 lb) 10/11/2023 11:19 AM EDT Height 180.3 cm (5' 11) 10/11/2023 11:19 AM EDT Body Mass Index 27.89 10/11/2023 11:19 AM EDT documented in this encounter Progress Notes * Basim Glasgow MD - 10/11/2023 11:15 AM EDT OUTPATIENT VASCULAR SURGERY CONSULTATION Reason for Visit: R ICA stenosis History of Present Illness: This is a 73 y.o. Male with decreased vision R eye and severe R ICA stenosis following CEA. Outside CTA from [facility] reviewed and shows a high grade right ICA stenosis and a moderate right petrous and cavernous stenoses. His last ischemic event was 11/2019 when he had ocular event. Note from Vascular surgeon in [place] who did his R CEA I believe [...] left eye. He has not seen an accounts payable technician in some time. reports that he quit smoking about 31 years ago. His smoking use included cigarettes. He started smoking about 61 years ago. He has a 120 pack-year smoking history. He has never used [...] Malignant neoplasm of head of pancreas C25.0 Current Outpatient Medications: tamsulosin (Flomax) 0.4 mg capsule, Take 1 capsule by mouth nightly., Disp: 30 capsule, Rfl: 11 qrwpjx-xjcposlw-csldhyz DR (Creon 24) 24,000-76,000 -120,[address] capsule, Take 2-3 PO with meals and 1 PO with snacks (3 snacks per day), 10 per day, Disp: 300 capsule, Rfl: 5 Insulin Fiasp FlexTouch U-100 100 unit/mL (3 mL) Insulin Pen, Inject 3 mLs subcutaneously 3 times daily (before meals)., Disp: , Rfl: Insulin Tresiba FlexTouch U-100 100 unit/mL (3 mL) Insulin Pen, ADMINISTER 10 UNITS UNDER THE SKIN TWICE DAILY, Disp: , Rfl: chlorthalidone (Hygroton) 25 mg tablet, Take 25 mg by mouth daily., Disp: , Rfl: omega 4-vlc-eqd-fish oil 250-350-1,000 mg Capsule, Take 1,000 mg by mouth., Disp: , Rfl: amLODIPine (Norvasc) 10 mg Tablet, Take 0.5 tablets by mouth daily. Amlodipine (Hold if SBP<120)(Patient taking differently: Take 10 mg by mouth daily. Amlodipine (Hold if SBP<120)), Disp: , Rfl: carvediloL (Coreg) 25 mg Tablet, Take 1 tablet by mouth 2 times daily (with meals). Carvedilol (hold for SBP <110, Hr <60) (Patient taking differently: Take 25 mg by mouth nightly. Carvedilol (hold for SBP <110, Hr <60)), Disp: , Rfl: lisinopriL (Zestril) 40 mg [...] every evening., Disp: 90 tablet, Rfl: 3 aspirin EC 81 mg Tablet, Delayed Release (E.C.), Take 81 mg by mouth daily., Disp: , Rfl: ondansetron (Zofran) 8 mg tablet, Take 1 tablet by mouth every 8 hours as needed for Nausea. Do notuse for 72 hours after chemotherapy (Patient not taking: Reported on 10/11/2023), Disp: 20 tablet, Rfl: 5 prochlorperazine (Compazine) 10 mg tablet, Take 1 tablet by mouth every 6 hours as needed for Nausea. (Patient not taking: Reported on 07/26/2023), Disp: 20 tablet, Rfl: 5 loperamide (IMODIUM A-D) 2 mg Tablet, Take by mouth 4 times daily as needed for Diarrhea. Maximum 16 mg in 24 hours, Disp: , Rfl: omeprazole (PriLOSEC) [address] capsule, Take 20 mg by mouth daily., Disp: , Rfl: Allergies Allergen Reactions Belinostat Other (See Comments) [...] a dye used during vascular procedure at [facility] in [place]: shaking Has tolerated MRI and CT contrast. Pazopanib Other (See Comments) UGT1A1 Poor Metabolizer. See Clinical Pharmacist Note from 07/04/23 for information. Sacituzumab Govitecan-Hziy Other (See Comments) UGT1A1 Poor Metabolizer. See Clinical Pharmacist Note from 07/04/23 for dosing recommendations. Review of Systems: Constitutional (weight change, fever) [...] for Thrombosis, Bleeding Disorders Physical Exam: BP (!) 140/110 (BP Location (NBP): Right arm, Patient Position: Sitting) Pulse 67 Ht 180.3 cm (5' 11) Wt 90.7 kg (200 lb) SpO2 99% BMI 27.89 kg/m?? General - NAD, appears stated age [...] Text Report Department: Vascular Surgery Lab Patient: [id number] (THA JARRETT) CPT: 71572 Referring Physician: BASIM GLASGOW Indications:Right TCAR. ? Change. Findings: Stent 1 - Pre PSV (cm/s): 42 EDV (cm/s): 13 Location: Right CCA Distal Stent 1 - Prox PSV (cm/s): 47 EDV (cm/s): 15 Location: Right CCA Distal Stent 1 - Mid PSV (cm/s): 71 EDV (cm/s): 15 Stent 1 - Distal PSV (cm/s): 67 EDV (cm/s): 18 Location: Right Internal Carotid Stent 1 - Post PSV (cm/s): 69 EDV (cm/s): 15 Location: Right Internal Carotid ICA Proximal, Right PSV (cm/s): 71 EDV (cm/s): 14 ICA/CCA: 1.8 Plaque Structure: Echogenic Plaque Surface: Smooth %Stenosis: <15% ICA Distal, Right PSV (cm/s): 70 EDV (cm/s): 20 ICA/CCA: 1.8 CCA Distal, Right PSV (cm/s): 40 EDV (cm/s): 12 %Stenosis: <50% CCA Proximal, Right PSV (cm/s): 61 EDV (cm/s): 14 External Carotid Artery, Right PSV (cm/s): 230 EDV (cm/s): 17 %Stenosis: >50% Vertebral, Right PSV (cm/s): 73 EDV (cm/s): 14 Direction of Flow: Antegrade ICA Proximal, Left PSV (cm/s): 102 EDV (cm/s): 13 ICA/CCA: 1.1 Plaque Structure: Echogenic Plaque Surface: Smooth %Stenosis: 16-49% ICA Distal, Left PSV (cm/s): 93 EDV (cm/s): 25 ICA/CCA: 1.0 CCA Distal, Left PSV (cm/s): 89 EDV (cm/s): 21 %Stenosis: <50% CCA Proximal, Left PSV (cm/s): 118 EDV (cm/s): 25 External Carotid Artery, Left PSV (cm/s): 133 EDV (cm/s): 13 %Stenosis: >50% Vertebral, Left PSV (cm/s): 72 EDV (cm/s): 21 Direction of Flow: Antegrade Interpretation: RIGHT: There is bulky irregular plaque in the proximal internal carotid artery causing <15% stenosis when compared to the more distal internal caroti d artery. The bifurcation level is in the [...] Ratio 16-49% 136 3.10 16-49% 95 1.10 <15% 74 2.30 16-49% 97 1.00 <15% 73 2.40 16-49% 76 0.80 Current Exam <15% 71 1.80 16-49% 102 1.10 VB Text Report End of Report Assessment [...] TH Visit (TeleHealth) Radiation Oncology at [address] [phone] Ping Moore PA [facility] DR HEM[place] [address] 03/26/2024 9:30 AM EST Office Visit Hematology/Oncology at [address] [phone] [address] HEMATOLOGY AND ONCOLOGY [place], [place] [address] 03/26/2024 9:30 AM EST Infusion Hematology Oncology at [address] [phone] 04/09/2024 9:30 AM EST Office Visit Hematology/Oncology at [address] [phone] Cl Hess MD [facility] [place] [address] [address] [place] [address] 04/09/2024 10:00 AM EST Infusion Hematology Oncology at [address] [phone] 04/23/2024 9:30 AM EST Office Visit Hematology/Oncology at [address] [phone] Cl Hess MD [facility] [place] [address] [address] [place] [address] 04/23/2024 10:00 AM EST Infusion Hematology Oncology at [address] [phone] 05/18/2024 4:30 PM EDT TH Visit (TeleHealth) [place] [address] Malachi Rothman MD [facility] [place] [address] documented as of this encounter Visit Diagnoses Diagnosis Presence of internal carotid stent documented in this encounter Care Teams Lead Technical Writer Relationship Specialty Start Date End Date Tristen Hunter MD [address] [place] [address] [place] [address] PCP - General Family Medicine 07/04/23 documented as of this encounter
--- OUTSIDE RECORDS SUMMARY | 2024-03-12 10:53 | XMS_ITS | Encounter Summary ---
Author Organization [facility] Address [facility] [place] [address] Care Team Providers Care Magazine Writer Name Role Phone Tristen Hunter MD Primary Care Provider [phone] Reason for Visit * Reason Comments Chemotherapy Folfirinox # 6 * Treatment/Therapy Plan Authorization (Routine) - Authorized Specialty Diagnoses / Procedures Referred By Contac t Referred To Contact Diagnoses Malignant neoplasm of prostate Cl Hess MD [facility] [place] [address] Stj Hem Onc Infusion [address] [place] [phone] Referral ID Status Reason Start Date Expiration Date V isits Requested Visits Authorized [id number] Authorized 07/11/2023 07/10/2024 99 99 Encounter Details Date Type Department Care Team (Late st Contact Info) Description 09/20/2023 9:30 AM EDT Infusion Hematology Oncology at [address] [phone] Malignant neoplasm of prostate Social History Tobacco Use Types Packs/Day Years Used Date Smoking Tobacco: Former Cigarettes 3 1992 Smokeless Tobacco: Never Alcohol Use Standard Drinks/Week Comments Yes 7 (1 standard drink = 0.6 oz pur e alcohol) [facility] Utilities Answer Date Recorded In the past [...] INFUSION THERAPY ADMINISTRATION NOTES TIME TREATMENT STARTED: 929 TIME TREATMENT ENDED: 1500 DIAGNOSIS: pancreatic cancer [...] be disconnected on Saturday09/22/23 at 1230pm at [facility] port draw, left message for them about this REACTIONS (DESCRIPTION, TIME, INTERVENTION AND EFFECTIVENESS) none ASSESSMENT Wero Sadler was awake, alert and he tolerated treatment well. PLAN Return to clinic per routine. documented in this encounter Plan of Treatment Upcoming Encounters Date Type Department Care Team (Late st Contact Info) Description 03/24/2024 9:00 AM EST TH Visit (TeleHealth) Radiation Oncology at [address] [phone] Ping Moore PA [facility] DR [place] [address] 03/26/2024 9:30 AM EST Office Visit Hematology/Oncology at [address] [phone] Yessi Renee APRN [address] [place] [address] DR HEMATOLOGY AND ONCOLOGY [place], [place] [address] 03/26/2024 9:30 AM EST Infusion Hematology Oncology at [address] [phone] 04/09/2024 9:30 AM EST Office Visit Hematology/Oncology at [address] [phone] Cl Hess MD [facility] [place] [address] HEMATOLOGY AND ONCOLOGY [place], [place] [address] 04/09/2024 10:00 AM EST Infusion Hematology Oncology at [address] [phone] 04/23/2024 9:30 AM EST Office Visit Hematology/Oncology at [address] [phone] Cl Hess MD [facility] [place] [address] [address] [place] [address] 04/23/2024 10:00 AM EST Infusion Hematology Oncology at [address] [phone] 05/18/2024 4:30 PM EDT TH Visit (TeleHealth) [place] [address] Malachi Rothman MD [facility] [place] [address] documented as of this encounter Visit Diagnoses [...] 2 minutes is a recommendation from the addiction professional. Administer prior to chemotherapy., Routine Given 09/20/2023 [...] mg documented in this encounter Care Teams Magazine Writer Relationship Specialty Start Date End Date Tristen Hunter MD [address] [place] [address] [place] [address] PCP - General Family Medicine 07/04/23 documented as of this encounter
--- OUTSIDE RECORDS SUMMARY | 2024-03-12 10:53 | XMS_ITS | Encounter Summary ---
Author Organization [facility] Address [facility] [place] [address] Care Team Providers Care Ibm Websphere Portal Developer Name Role Phone Tristen Hunter MD Primary Care Provider [phone] Encounter Details Date Type Department Care Team (Late st Contact Info) Description 10/17/2023 Telephone Hematology/Oncology at [address] [phone] [facility] DR HEMATOLOGY [place] [address] Social History Tobacco Use Types Packs/Day Years Used Date Smoking Tobacco: Former Cigarettes 4 30 1 963 - 1992 Smokeless Tobacco: Never Alcohol Use Standard Drinks/Week Comments Yes 7 (1 standard drink = 0.6 oz pur e alcohol) [facility] Utilities Answer Date Recorded In the [...] in a jail (including now)? No 06/04/2023 DH IPV Inpatient [...] encounter Miscellaneous Notes * Telephone Encounter - Eva, Lupe Frey, RD - 10/17/2023 1:08 PM EDT Nutrition Note Spoke with patient over the phone today as I will be out of clinic tomorrow 10/17 when he comes to see Dr. Hess for consideration of cycle 8 of m-folfirinox for pancreatic cancer. Patient reports he is eating well and doing well overall, but was woken up by his continuous glucose monitor at 3am today with low BG of 67 mg/dl. He says he had difficulty bringing his blood sugar up. He drank a glucerna first. Then has a glass of OJ. He ate some baloney and cheese, then made breakfast of eggs and sausage, followed by another bottle of glucerna. None of this kept his BG up within normal range for very long. He says his long-acting AM insulin was further reduced recently to 32 units in the AM. He uses sliding scale insulin. He has 2 very loose BM's daily. 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 He does have malodorous gas at times. He does not have bloating or abdominal pain after PO intake. He takes Creon 24: 3 per meal and 1-2 per snack. Weight had been consistently trending up, but he is now down almost 4# in past 4 weeks. Wt Readings from Last 10 Encounters: 10/11/23 90.7 kg (200 lb) 10/04/23 91.5 kg (201 lb 12.8 oz) 09/20/23 92.4 kg (203 lb 12.8 oz) 09/06/23 91 kg (200 lb 9.6 oz) 08/23/23 85.7 kg (189 lb) 08/09/23 85.1 kg (187 lb 9.6 oz) 07/26/23 83.7 kg (184 lb 9.6 oz) 07/12/23 82.5 kg (181 lb 12.8 oz) 07/05/23 79.8 kg (176 lb) 06/07/23 83 kg (183 lb) Recommendations: Given loose stools twice daily, weight trending down and hypoglycemia episode, recommend increase Creon 24 to 4 per meal and 2 per snack. Reminded him to include carbohydrates with meals and snacks and have a protein/carb snack at HS such as peanut butter toast. Also reviewed treatment for hypoglycemia (consume 15 g CHO, check BG, repeat until within wnl, then eat more significant meal or snack including carbs within 30-60 mins). Will continue to follow documented in this encounter Plan of Treatment Upcoming Encounters Date Type Department Care Team (Late st Contact Info) Description 03/24/2024 9:00 AM EST TH Visit (TeleHealth) Radiation Oncology at [address] [phone] Ping Moore PA [facility] DR HEMATOLOGY [place] [address] 03/26/2024 9:30 AM EST Office Visit Hematology/Oncology at [address] [phone] [address] HEMATOLOGY AND ONCOLOGY [place], [place] [phone] 03/26/2024 9:30 AM EST Infusion Hematology Oncology at [address] [phone] 04/09/2024 9:30 AM EST Office Visit Hematology/Oncology at [address] [phone] Cl Hess MD [facility] [place] [address] [address] HEMATOLOGY AND ONCOLOGY [place], [place] [phone] 04/09/2024 10:00 AM EST Infusion Hematology Oncology at [address] [phone] 04/23/2024 9:30 AM EST Office Visit Hematology/Oncology at [address] [phone] Cl Hess MD [facility] [place] [address] [address] HEMATOLOGY AND ONCOLOGY [place], [place] [phone] 04/23/2024 10:00 AM EST Infusion Hematology Oncology at [address] [phone] 05/18/2024 4:30 PM EDT TH Visit (TeleHealth) [place] [address] Malachi Rothman MD [facility] [place] [address] documented as of this encounter Visit Diagnoses Not on filedocumented in this encounter Care Teams Ibm Websphere Portal Developer Relationship Specialty Start Date End Date Tristen Hunter MD [address] [place] [address] [place] [address] PCP - General Family Medicine 07/04/23 documented as of this encounter
--- OUTSIDE RECORDS SUMMARY | 2024-03-12 10:53 | XMS_ITS | Encounter Summary ---
Author Organization [facility] [place] [address] Care Team Providers Care Potato Bucker Name Role Phone Tristen Hunter MD Primary Care Provider [phone] Encounter Details Date Type Department Care Team (Late st Contact Info) Description 08/23/2023 10:00 AM EDT Office Visit Hematology/Oncology at [address] [phone] [facility] DR HEMATOLOGY [place] [address] Malignant neoplasm of prostate Social History Tobacco Use Types Packs/Day Years Used Date Smoking Tobacco: Former Cigarettes 4 1 - 1992 Smokeless Tobacco: Never Alcohol Use Standard Drinks/Week Comments Yes 7 (1 standard drink = 0.6 oz pur e alcohol) [facility] Utilities Answer Date Recorded In the past 12 months has [employer], gas, oil, or water company threatened [...] EST TH Visit (TeleHealth) Radiation Oncology at [address] [phone] Ping Moore PA [facility] DR HEMATOLOGY [place] [address] 03/26/2024 9:30 AM EST Office Visit Hematology/Oncology at [address] [phone] Yessi Renee APRN [address] [place] [address] DR HEMATOLOGY [place] [address] 03/26/2024 9:30 AM EST Infusion Hematology Oncology at [address] [phone] 04/09/2024 9:30 AM EST Office Visit Hematology/Oncology at [address] [phone] Cl Hess MD [facility] [place] [address] [address] HEMATOLOGY AND ONCOLOGY [place], [place] [phone] 04/09/2024 10:00 AM EST Infusion Hematology Oncology at [address] [phone] 04/23/2024 9:30 AM EST Office Visit Hematology/Oncology at [address] [phone] Cl Hess MD [facility] [place] [address] HEMATOLOGY [place] [address] 04/23/2024 10:00 AM EST Infusion Hematology Oncology at [address] [phone] 05/18/2024 4:30 PM EDT TH Visit (TeleHealth) [place] [address] Malachi Rothman MD [facility] [place] [address] documented as of this encounter Visit Diagnoses Diagnosis Malignant neoplasm of prostate documented in this encounter Care Teams Potato Bucker Relationship Specialty Start Date End Date Tristen Hunter MD [address] [place] [address] [place] [address] PCP - General Family Medicine 07/04/23 documented as of this encounter
--- OUTSIDE RECORDS SUMMARY | 2024-03-12 10:53 | XMS_ITS | Encounter Summary ---
[place] [address] Care Team Providers Care Saw Filer Name Role Phone Tristen Hunter MD Primary Care Provider [phone] Encounter Details Date Type Department Care Team (Latest Contact Info) Description 09/20/2023 Travel Social History Tobacco Use Types Packs/Day Years Used Date Smoking Tobacco: Former Cigarettes 4 30 1 963 - 1992 Smokeless Tobacco: Never Alcohol Use Standard Drinks/Week Comments Yes 7 (1 standard drink = 0.6 oz pur e alcohol) [facility] Utilities Answer Date Recorded In the past 12 months has [employer], gas, oil, or water company threatened [...] TH Visit (TeleHealth) Radiation Oncology at [address] [phone] Ping Moore PA [facility] DR [place] [address] 03/26/2024 9:30 AM EST Office Visit Hematology/Oncology at [address] [phone] Yessi Renee APRN [address] [place] [address] DR [place] [address] 03/26/2024 9:30 AM EST Infusion Hematology Oncology at [address] [phone] 04/09/2024 9:30 AM EST Office Visit Hematology/Oncology at [address] [phone] Cl Hess MD [facility] [address] [address] HEMATOLOGY AND ONCOLOGY [place], [place] [phone] 04/09/2024 10:00 AM EST Infusion Hematology Oncology at [address] [phone] 04/23/2024 9:30 AM EST Office Visit Hematology/Oncology at [address] [phone] Cl Hess MD [facility] [place] [address] [place] [address] 04/23/2024 10:00 AM EST Infusion Hematology Oncology at [address] [phone] 05/18/2024 4:30 PM EDT TH Visit (TeleHealth) [place] [address] Malachi Rothman MD [facility] [address] documented as of this encounter Visit Diagnoses Not on filedocumented in this encounter Care Teams Saw Filer Relationship Specialty Start Date End Date Tristen Hunter MD [address] [place] [address] [place] [address] PCP - General Family Medicine 07/04/23 documented as of this encounter
--- OUTSIDE RECORDS SUMMARY | 2024-03-12 10:53 | XMS_ITS | Encounter Summary ---
Author Organization [facility] Address [facility] [place] [address] Care Team Providers Care Logistics Analytics Manager Name Role Phone Tristen Hunter MD Primary Care Provider [phone] Encounter Details Date Type Department Care Team (Late st Contact Info) Description 09/02/2023 Interpretation Only Radiology Library at [facility] [phone] Unknown None Social History Tobacco Use Types Packs/Day Years Used Date Smoking Tobacco: Former Cigarettes 4 30 1 963 - 1992 Smokeless Tobacco: Never Alcohol Use Standard Drinks/Week Comments Yes 7 (1 standard drink = 0.6 oz pur e alcohol) [facility] Utilities Answer Date Recorded In the past 12 months has e [employer], gas, oil, or water company threatened to [...] TH Visit (TeleHealth) Radiation Oncology at [address] [phone] Ping Moore PA [facility] [place] [address] 03/26/2024 9:30 AM EST Office Visit Hematology/Oncology at [address] [phone] Yessi Renee APRN [address] [place] [address] DR HEMATOLOGY [place] [address] 03/26/2024 9:30 AM EST Infusion Hematology Oncology at [address] [phone] 04/09/2024 9:30 AM EST Office Visit Hematology/Oncology at [address] [phone] Cl Hess MD [facility] [place] [address] [address] HEMATOLOGY AND ONCOLOGY [place], [place] [address] [phone] 04/09/2024 10:00 AM EST Infusion Hematology Oncology at [address] [phone] 04/23/2024 9:30 AM EST Office Visit Hematology/Oncology at [address] [phone] Cl Hess MD [facility] [place] [address] [address] HEMATOLOGY AND ONCOLOGY [place], [place] [address] 04/23/2024 10:00 AM EST Infusion Hematology Oncology at [address] [phone] 05/18/2024 4:30 PM EDT TH Visit (TeleHealth) [place] [address] Malachi Rothman MD [facility] [place] [address] documented as of this encounter Procedures Procedure Name Priority Date/Time Associated Diagnosis Comments FILM LIBRARY STORAGE ONLY CT ABDOMEN AND PELVIS Routine 09/02/2023 3:45 PM EDT documented in this encounter Results * Film Library- Storage Only CT Abdomen & Pelvis (09/02/2023 3:45 PM EDT) 09/03/2023 8:26 AM EDT Narrative VJ FALL - 09/03/2023 8:26 AM EDT This exam is auto-finalizing. It's purpose is for storage only. Unknown IMG FILM LIBRARY ORD ERABLES [place], [place] documented in this encounter Visit Diagnoses Not on filedocumented in this encounter Care Teams Logistics Analytics Manager Relationship Specialty Start Date End Date Tristen Hunter MD [address] [place] [address] [place] [address] PCP - General Family Medicine 07/04/23 documented as of this encounter
--- OUTSIDE RECORDS SUMMARY | 2024-03-12 10:53 | XMS_ITS | Encounter Summary ---
[place] [address] Care Team Providers Care Radiology Physician Name Role Phone Tristen Hunter MD Primary Care Provider [phone] Reason for Referral * Consultation (Routine) - Duplicate Referral Specialty Diagnoses / Procedures Referred By Marques livingston Referred To Contact Radiation Oncology Diagnoses Malignant neoplasm of head of pancreas Yessi Renee APRN [address] [place] [address] DR [place] [address] St Rad Onc Office [address] [place] [phone] Referral ID Status Reason Start Date Expiration Date Visits Requested Visits Authorized [id number] Duplicate Referral Consult, Test & Treat 09/20/2023 09/19/2024 1 1 Encounter Details Date Type Department Care Team (Late st Contact Info) Description 09/20/2023 9:00 AM EDT Office Visit Hematology/Oncology at [address] [phone] Cl Hess MD [facility] [place] [address] Yessi Renee APRN [address] [place] [address] DR HEMATOLOGY AND ONCOLOGY [place], [place] [phone] Malignant neoplasm of head of pancreas Social History Tobacco Use Types Packs/Day Years Used Date Smoking Tobacco: Former Cigarettes 07 01 1 3 - 1992 Smokeless Tobacco: Never Alcohol Use Standard Drinks/Week Comments Yes 7 (1 standard drink = 0.6 oz pur e alcohol) [facility] Utilities Answer Date Recorded In [...] periduodenal or perilesional adenopathy was appreciated Impression: [id number] pancreas head mass lesion with biliary and [...] progression on interim staging evaluation. [facility] second read of CT c/a/p from 05/22/23 [...] AM's reading was 106. 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 He has a h/o multiple medical problems as above, including colon cancer, prostate cancer, ASCVD, PVDz s/p carotid endarterectomy, prior CVA, DM and others. 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 While in [facility], he presented with chest pain and SOB [...] discussed. Pathology was requested for review at [facility] and we also requested that images be sent. His case was reviewed at [facility] on 06/18/23. The Ct [...] will be followed also by our clinical weatherization specialist, Lupe Velasquez. On 07/12/23 he began neoadjuvant [...] TH Visit (TeleHealth) Radiation Oncology at [address] [phone] Ping Moore PA [facility] HEMATOLOGY AND [place] [address] 03/26/2024 9:30 AM EST Office Visit Hematology/Oncology at [address] [phone] [address] HEMATOLOGY AND ONCOLOGY [place], [place] [address] 03/26/2024 9:30 AM EST Infusion Hematology Oncology at [address] [phone] 04/09/2024 9:30 AM EST Office Visit Hematology/Oncology at [address] [phone] Cl Hess MD [facility] [place] [address] [address] HEMATOLOGY AND ONCOLOGY [place], [place] [phone] 04/09/2024 10:00 AM EST Infusion Hematology Oncology at [address] [phone] 04/23/2024 9:30 AM EST Office Visit Hematology/Oncology at [address] [phone] Cl Hess MD [facility] [place] [address] [address] [place]EMATOLOGY [place] [address] 04/23/2024 10:00 AM EST Infusion Hematology Oncology at [address] [phone] 05/18/2024 4:30 PM EDT TH Visit (TeleHealth) [place] [address] Malachi Rothman MD [facility] [place] [address] Scheduled Referrals Name Type Priority Associated Diagnoses Orde r Schedule Referral to Radiation Oncology Outpatient Referral Routine Malignant neoplasm of head of pancreas Ordered: 09/20/2023 documented as of this encounter Visit Diagnoses Diagnosis Malignant neoplasm of head of pancreas documented in this encounter Care Teams Radiology Physician Relationship Specialty Start Date End Date Tristen Hunter MD [address] [place] [address] PCP - General Family Medicine 07/04/23 documented as of this encounter
--- OUTSIDE RECORDS SUMMARY | 2024-03-12 10:53 | XMS_ITS | Encounter Summary ---
Author Organization [facility] Address [facility] [place] [address] Care Team Providers Care Boots And Shoes Supervisor Name Role Phone Tristen Hunter MD Primary Care Provider [phone] Encounter Details Date Type Department Care Team (Latest Contact Info) Description 09/03/2023 1:45 PM EDT TH Visit (TeleHealth) Radiation Oncology at [address] [phone] Ping Moore PA [facility] DR [place] [address] Malignant neoplasm of prostate (Primary Dx); S/P radiotherapy Social History Tobacco Use Types Packs/Day Years Used Date Smoking Tobacco: Former Cigarettes 4 30 1 - 1992 Smokeless Tobacco: Never Alcohol Use Standard Drinks/Week Comments Yes 7 (1 standard drink = 0.6 oz pur e alcohol) [facility] Utilities Answer Date Recorded In the past 12 months has e [employer], gas, oil, or water [employer] threatened to shut off services in your [...] Moore PA - 09/03/2023 1:45 PM EDT [facility] [place] [address] TELEHEALTH FOLLOW-UP: Patient: Wero Sadler : 1950 [...] Doing well. 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 Not going to [place] this winter, as his right-sided vision is [...] dye used during vascular procedure at [facility] in [place]: shaking Has tolerated MRI and CT contrast. [...] capsule by mouth nightly. 30 capsule 11 gyt[address]-agfprivr-ybszvij DR (Creon 24) 24,000-76,000 -120,[address] [...] Take 25 mg by mouth daily. omega 4-eiv-kvu-fish oil 250-350-1,000 mg Capsule Take 1,000 mg [...] Labs Reviewed This Visit: Date PSA Testosterone (229902) Notes 03/2020 15.4 05/2020 18.5 10/05/20 21.6 [...] (= 6 months from 06/25/23 labs) Labs ([facility] PSA Wero Sadler had the opportunity to [...] EST TH Visit (TeleHealth) Radiation Oncology at [address] [phone] Ping Moore PA [facility] DR [place] [address] 03/26/2024 9:30 AM EST Office Visit Hematology/Oncology at [address] [phone] [address] HEMATOLOGY AND ONCOLOGY [place], [place] [phone] 03/26/2024 9:30 AM EST Infusion Hematology Oncology at [address] [phone] 04/09/2024 9:30 AM EST Office Visit Hematology/Oncology at [address] [phone] Cl Hess MD [facility] [place] [address] [address] HEMATOLOGY AND ONCOLOGY [place], [place] [phone] 04/09/2024 10:00 AM EST Infusion Hematology Oncology at [address] [phone] 04/23/2024 9:30 AM EST Office Visit Hematology/Oncology at [address] [phone] Cl Hess MD [facility] [address] [address] HEMATOLOGY AND ONCOLOGY [place], [place] [phone] 04/23/2024 10:00 AM EST Infusion Hematology Oncology at [address] [phone] 05/18/2024 4:30 PM EDT TH Visit (TeleHealth) [place] [address] Malachi Rothman MD [facility] [place] [address] documented as of this encounter Visit Diagnoses Diagnosis Malignant neoplasm of prostate- Primary S/P radiotherapy Convalescence following radiotherapy documented in this encounter Care Teams Boots And Shoes Supervisor Relationship Specialty Start Date End Date Tristen Hunter MD [address] [place] [address] [place] [address] PCP - General Family Medicine 07/04/23 documented as of this encounter
--- OUTSIDE RECORDS SUMMARY | 2024-03-12 10:53 | XMS_ITS | Encounter Summary ---
Author Organization [facility] [place] [address] Care Team Providers Care Manager Of Maintenance Name Role Phone Tristen Hunetr MD Primary Care Provider [phone] Encounter Details Date Type Department Care Team (Late st Contact Info) Description 10/17/2023 Orders Only Hematology [place] [address] Cl Hess MD [facility] DR ONCOLOGY [place] [id number] Social History Tobacco Use Types Packs/Day Years [...] EST TH Visit (TeleHealth) Radiation Oncology at [address] [phone] Ping Moore PA [facility] HEMATOLOGY [place] [address] 03/26/2024 9:30 AM EST Office Visit Hematology/Oncology at [address] [phone] [address] [place] [address] 03/26/2024 9:30 AM EST Infusion Hematology Oncology at [address] [phone] 04/09/2024 9:30 AM EST Office Visit Hematology/Oncology at [address] [phone] Cl Hess MD [facility] [place] [address] [address] HEMATOLOGY AND ONCOLOGY [place], [place] [address] 04/09/2024 10:00 AM EST Infusion Hematology Oncology at [address] [phone] 04/23/2024 9:30 AM EST Office Visit Hematology/Oncology at [address] [phone] Cl Hess MD [facility] [place] [address] [address] [place] [address] 04/23/2024 10:00 AM EST Infusion Hematology Oncology at [address] [phone] 05/18/2024 4:30 PM EDT TH Visit (TeleHealth) [place] [address] Malachi Rothman MD [facility] [place] [address] documented as of this encounter Visit Diagnoses Not on filedocumented in this encounter Care Teams Manager Of Maintenance Relationship Specialty Start Date End Date Tristen Hunter MD [address] [place] [address] [place] [address] PCP - General Family Medicine 07/04/23 documented as of this encounter
--- OUTSIDE RECORDS SUMMARY | 2024-03-12 10:53 | XMS_ITS | Encounter Summary ---
Author Organization [facility] Address [facility] [place] [address] Care Team Providers Care Delivery Crew Member Name Role Phone Tristen Hunter MD Primary Care Provider [phone] Reason for Visit * Reason Comments Chemotherapy * Treatment/Therapy Plan Authorization (Routine) - Authorized Specialty Diagnoses / Procedures Referred By Contac t Referred To Contact Diagnoses Malignant neoplasm of prostate Cl Hess MD [facility] [address] Stj Hem Onc Infusion [address] [place] [phone] Referral ID Status Reason Start Date Expiration Date V isits Requested Visits Authorized [id number] Authorized 07/11/2023 07/10/2024 99 99 Encounter Details Date Type Department Care Team (Late st Contact Info) Description 08/23/2023 9:00 AM EDT Infusion Hematology Oncology at [address] [phone] Malignant neoplasm of prostate Social History Tobacco Use Types Packs/Day Years Used Date Smoking Tobacco: Former Cigarettes 4 30 1 3 - 1992 Smokeless Tobacco: Never Alcohol Use Standard Drinks/Week Comments Yes 7 (1 standard drink = 0.6 oz pur e alcohol) [facility] Utilities Answer Date Recorded In the [...] * Angeli Chester, Booker P, RN - 08/23/2023 9:00 AM EDT INFUSION THERAPY ADMINISTRATION NOTES DIAGNOSIS: Pacreatic CYCLE #: C4D1 REASON FOR VISIT: mFOLFIRINOX infusion and initiation of continuous home 5FU infusion via CADD pumpprovided by InfuSystem SUBJECTIVE Wero met with Marilee [...] Hooks RN , Larisa Henry RN, and Pharm Bela At time of administration Patient identity verified [...] patency per use. PLAN Pump disconnect at [facility] Saturday 1158H per Haleigh. documented in this encounter Plan of Treatment Upcoming Encounters Date Type Department Care Team (Late st Contact Info) Description 03/24/2024 9:00 AM EST TH Visit (TeleHealth) Radiation Oncology at [address] [phone] Ping Moore PA [facility] [place] [address] 03/26/2024 9:30 AM EST Office Visit Hematology/Oncology at [address] [phone] Yessi Renee APRN [address] [place] [address] DR HEMATOLOGY AND ONCOLOGY [place], [place] [phone] 03/26/2024 9:30 AM EST Infusion Hematology Oncology at [address] [phone] 04/09/2024 9:30 AM EST Office Visit Hematology/Oncology at [address] [phone] Cl Hess MD [facility] [place] [address] [address] HEMATOLOGY AND ONCOLOGY [place], [place] [address] 04/09/2024 10:00 AM EST Infusion Hematology Oncology at [address] [phone] 04/23/2024 9:30 AM EST Office Visit Hematology/Oncology at [address] [phone] Cl Hess MD [facility] [place] [address] [address] HEMATOLOGY [place] [address] 04/23/2024 10:00 AM EST Infusion Hematology Oncology at [address] [phone] 05/18/2024 4:30 PM EDT TH Visit (TeleHealth) [place] [address] Malachi Rothman MD [facility] [address] documented as of this encounter Visit Diagnoses [...] 2 minutes is a recommendation from the travel journalist. Administer prior to chemotherapy., Routine Given 08/23/2023 [...] mg documented in this encounter Care Teams Delivery Crew Member Relationship Specialty Start Date End Date Tristen Hunter MD [address] [place] [address] [place] [address] PCP - General Family Medicine 07/04/23 documented as of this encounter
--- OUTSIDE RECORDS SUMMARY | 2024-03-12 10:53 | XMS_ITS | Encounter Summary ---
[place] [address] Care Team Providers Care Pellet Press Operator Name Role Phone Tristen Hunter MD Primary Care Provider [phone] Encounter Details Date Type Department Care Team (Late st Contact Info) Description 09/24/2023 Telephone [place] [phone] Laina Cope Social History Tobacco Use Types [...] TH Visit (TeleHealth) Radiation Oncology at [address] [phone] Ping Moore PA [facility] HEMATOLOGY [place] [address] 03/26/2024 9:30 AM EST Office Visit Hematology/Oncology at [address] [phone] [address] HEMATOLOGY AND ONCOLOGY [place], [place] [address] 03/26/2024 9:30 AM EST Infusion Hematology Oncology at [address] [phone] 04/09/2024 9:30 AM EST Office Visit Hematology/Oncology at [address] [phone] Cl Hess MD [facility] [place] [address] [address] HEMATOLOGY AND ONCOLOGY [place], [place] [phone] 04/09/2024 10:00 AM EST Infusion Hematology Oncology at [address] [phone] 04/23/2024 9:30 AM EST Office Visit Hematology/Oncology at [address] [phone] Cl Hess MD [facility] [place] [address] [address] HEMATOLOGY [place] [address] 04/23/2024 10:00 AM EST Infusion Hematology Oncology at [address] [phone] 05/18/2024 4:30 PM EDT TH Visit (TeleHealth) [place] [address] Malachi Rothman MD [facility] [place] [address] documented as of this encounter Visit Diagnoses Not on filedocumented in this encounter Care Teams Pellet Press Operator Relationship Specialty Start Date End Date Tristen Hunter MD [address] [place] [address] [place] [address] PCP - General Family Medicine 07/04/23 documented as of this encounter
--- OUTSIDE RECORDS SUMMARY | 2024-03-12 10:53 | XMS_ITS | Encounter Summary ---
Author Organization [facility] [place] [address] Care Team Providers Care Puppet Master Name Role Phone Tristen Hunter MD Primary Care Provider [phone] Encounter Details Date Type Department Care Team (Latest Contact Info) Description 09/20/2023 10:00 AM EDT Clinical Support Hematology/Oncology at [address] [phone] [facility] DR HEMATOLOGY [place] [address] Malignant neoplasm of head of pancreas Social History Tobacco Use Types Packs/Day Years Used Date Smoking Tobacco: Former Cigarettes 4 30 1 3 - 1992 Smokeless Tobacco: Never Alcohol Use Standard Drinks/Week Comments Yes 7 (1 standard drink = 0.6 oz pur e alcohol) [facility] Utilities Answer Date Recorded In the past 12 months has [employer] electric, gas, oil, or water company threatened [...] EST TH Visit (TeleHealth) Radiation Oncology at [address] [phone] Ping Moore PA [facility] DR HEMATOLOGY [place] [address] 03/26/2024 9:30 AM EST Office Visit Hematology/Oncology at [address] [phone] Yessi Renee APRN [address] [place] [address] DR HEMATOLOGY AND ONCOLOGY [place], [place] [phone] 03/26/2024 9:30 AM EST Infusion Hematology Oncology at [address] [phone] 04/09/2024 9:30 AM EST Office Visit Hematology/Oncology at [address] [phone] 13 Cl Hess MD [facility] [place] [address] [address] HEMATOLOGY AND ONCOLOGY [place], [place] [phone] 04/09/2024 10:00 AM EST Infusion Hematology Oncology at [address] [phone] 04/23/2024 9:30 AM EST Office Visit Hematology/Oncology at [address] [phone] Cl Hess MD [facility] [place] [address] [address] [place]EMATOLOGY [place] [address] 04/23/2024 10:00 AM EST Infusion Hematology Oncology at [address] [phone] 05/18/2024 4:30 PM EDT TH Visit (TeleHealth) [place] [address] Malachi Rothman MD [facility] [place] [address] documented as of this encounter Visit Diagnoses Diagnosis Malignant neoplasm of head of pancreas documented in this encounter Care Teams Puppet Master Relationship Specialty Start Date End Date Tristen Hunter MD [address] [place] [address] [place] [address] PCP - General Family Medicine 07/04/23 documented as of this encounter
--- OUTSIDE RECORDS SUMMARY | 2024-03-12 10:53 | XMS_ITS | Encounter Summary ---
Author Organization [facility] [place] [address] Care Team Providers Care [employer] Compliance Internship Name Role Phone Tristen Hunter MD Primary Care Provider [phone] Encounter Details Date Type Department Care Team (Latest Contact Info) Description 10/04/2023 10:00 AM EDT Clinical Support Hematology/Oncology at [address] [phone] [facility] DR [place] [address] Malignant neoplasm of head of pancreas Social History Tobacco Use Types Packs/Day Years Used Date Smoking Tobacco: Former Cigarettes 4 30 1 - 1992 Smokeless Tobacco: Never Alcohol Use Standard Drinks/Week Comments Yes 7 (1 standard drink = 0.6 oz pur e alcohol) [facility] Utilities Answer Date Recorded In the past 12 months has [employer] electric, gas, oil, or water company threatened [...] Progress Notes * Lupe Velasquez, RD - 10/04/2023 10:00 AM EDT Nutrition Note Spoke with Mauri in infusion today. Patient is starting cycle 7 of 8 planned treatments with m-Folfirinox for pancreatic cancer. Plan is for radiation next. Patient's weight is down 2# in the past two weeks, but overall he has re-gained 28# in the past 2.5months. Patient is taking Creon 24: 3 per meal (10-11/day). Increasing to consistently 3 per meal has made gas occur less often. He has 2 loose BM's daily per today's provider note. He feels he continues to eat and drink quite well. AM insulin was lowered due to some low fasting values. Wt Readings from Last 10 Encounters: 10/04/23 91.5 kg (201 lb 12.8 oz) 09/20/23 92.4 kg (203 lb 12.8 oz) 09/06/23 91 kg (200 lb 9.6 oz) 08/23/23 85.7 kg (189 lb) 08/09/23 85.1 kg (187 lb 9.6 oz) 07/26/23 83.7 kg (184 lb 9.6 oz) 07/12/23 82.5 kg (181 lb 12.8 oz) 07/05/23 79.8 kg (176 lb) 06/07/23 83 kg (183 lb) 07/31/22 103.9 kg (229 lb) BMI 28.19 2# loss 09/19-10/03 (1.0% body weight) - not significant 28# re-gain in past 2.5 months 07/04-09/19 44# (23.2% body weight) loss over past year per chart 07/31/22-07/05/23 Lost 85# total per patient Diet: Eats 3 meals/day. Brother helps with cooking meals. He is now taking 3 capsules Creon 24 per meal and one per snack. Drinking 2-3 L fluids daily, mostly water. Medications: Creon 24 (3 with meals and 1 with snacks), long acting insulin, SS insulin, zofran prn, compazine prn, imodium, chlorthalidone, omeprazole, tamsulosin, omega 3, amlodipine, carvedilol, lisinopril, folic acid, imdur, lipitor, aspirin Labs on 10/02: Na 143, K 3.5, Alk Phos 143, AST 24, ALT 53, BUN 16, BG 74, Ca 8.7, Alb 3.3L, Tbili 0.8, WBC 4.0L, H/H 10.1/31.7 Nutrition Problem: Involuntary weight loss and altered GI function related to pancreatic cancer as evidenced by PERT (Creon 24: 3 per meal and one per snack) and 44# (23.2% body weight) loss over past year 07/31/22-07/05/23 Improved Recommendations: Continue with adequate intake of meals and snacks, though with attention to consistent carbohydrateintake and limiting added sugars for glycemic control as patient has IDDM. He can now more closely monitor his BG himself with CGM connecting to his new phone. Creon 24: continue 3 per meal and 1 per snack. Gas is less frequent, though patient reports 2 looseBM to provider today. Will f/u on 10/17 documented in this encounter Plan of Treatment Upcoming Encounters Date Type Department Care Team (Late st Contact Info) Description 03/24/2024 9:00 AM EST TH Visit (TeleHealth) Radiation Oncology at [address] [phone] Ping Moore PA [facility] DR [place] [address] 03/26/2024 9:30 AM EST Office Visit Hematology/Oncology at [address] [phone] [address] HEMATOLOGY AND ONCOLOGY [place], [place] [phone] 03/26/2024 9:30 AM EST Infusion Hematology Oncology at [address] [phone] 04/09/2024 9:30 AM EST Office Visit Hematology/Oncology at [address] [phone] Cl Hess MD [facility] [place] [address] [address] HEMATOLOGY [place] [address] 04/09/2024 10:00 AM EST Infusion Hematology Oncology at [address] [phone] 04/23/2024 9:30 AM EST Office Visit Hematology/Oncology at [address] [phone] Cl Hess MD [facility] [place] [address] Yessi Renee APRN [address] [place] [address] DR HEMATOLOGY AND ONCOLOGY [place], [place] [address] 04/23/2024 10:00 AM EST Infusion Hematology Oncology at [address] [phone] 05/18/2024 4:30 PM EDT TH Visit (TeleHealth) [place] [address] Malachi Rothman MD [facility] [place] [address] documented as of this encounter Visit Diagnoses Diagnosis Malignant neoplasm of head of pancreas documented in this encounter Care Teams [employer] Compliance Internship Relationship Specialty Start Date End Date Tristen Hunter MD [address] [place] [address] [place] [address] PCP - General Family Medicine 07/04/23 documented as of this encounter
--- OUTSIDE RECORDS SUMMARY | 2024-03-12 10:53 | XMS_ITS | Encounter Summary ---
Author Organization [facility] Address [facility] [place] [address] Care Team Providers Care Steward/Stewardess Lounge Name Role Phone Tristen Hunter MD Primary Care Provider [phone] Encounter Details Date Type Department Care Team (Late st Contact Info) Description 10/04/2023 9:00 AM EDT Office Visit Hematology/Oncology at [address] [phone] Cl Hess MD [facility] [place] [address] Yessi Renee, ARNOLD [address] [place] [address] [place] [address] Malignant neoplasm of head of pancreas Social History Tobacco Use Types Packs/Day Years Used Date Smoking Tobacco: Former Cigarettes 4 30 1 963 - 1992 Smokeless Tobacco: Never Alcohol Use Standard Drinks/Week Comments Yes 7 (1 standard drink = 0.6 oz pur e alcohol) [facility] Utilities Answer Date Recorded In [...] periduodenal or perilesional adenopathy was appreciated Impression: [id number] pancreas head mass lesion with biliary and [...] disease/disease progression on interim staging evaluation. [facility] second read of CT c/a/p from 05/22/23 [...] no worsening of symptoms. 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 While in [facility], he presented with chest pain and [...] 06/07/23. Pathology was requested for review at [facility] and we also requested that images be [...] in the absence of cold, hypersensitivity reactions, angina/CA and others. He was given an informational handout regarding mFolfirinox. We reviewed his case at [facility] on 06/18/23. [...] for a blood draw in [facility] once he starts his infusions. If genetic testing showed a BRCA or PALB2 mutation, he may be eligible for a clinical trial looking at theuse olaparib following completion of chemotherapy and surgery to see if this improves RFS. He will be followed also by our clinical dairy specialist, Lupe Velasquez. On 07/12/23 he began [...] TH Visit (TeleHealth) Radiation Oncology at [address] [phone] Ping Moore PA [facility] DR HEMATOLOGY [place] [address] 03/26/2024 9:30 AM EST Office Visit Hematology/Oncology at [address] [phone] [address] HEMATOLOGY AND ONCOLOGY [place], [place] [address] 03/26/2024 9:30 AM EST Infusion Hematology Oncology at [address] [phone] 04/09/2024 9:30 AM EST Office Visit Hematology/Oncology at [address] [phone] Cl Hess MD [facility] [place] [address] [address] HEMATOLOGY AND ONCOLOGY [place], [place] [phone] 04/09/2024 10:00 AM EST Infusion Hematology Oncology at [address] [phone] 04/23/2024 9:30 AM EST Office Visit Hematology/Oncology at [address] [phone] Cl Hess MD [facility] [place] [address] [address] HEMATOLOGY AND ONCOLOGY [place], [place] [address] 04/23/2024 10:00 AM EST Infusion Hematology Oncology at [address] [phone] 05/18/2024 4:30 PM EDT TH Visit (TeleHealth) [place] [address] Malachi Rothman MD [facility] [place] [address] documented as of this encounter Visit Diagnoses Diagnosis Malignant neoplasm of head of pancreas documented in this encounter Care Teams Steward/Stewardess Lounge Relationship Specialty Start Date End Date Tristen Hunter MD [address] [place] [address] [place] [address] PCP - General Family Medicine 07/04/23 documented as of this encounter
--- OUTSIDE RECORDS SUMMARY | 2024-03-12 10:53 | XMS_ITS | Encounter Summary ---
Author Organization [facility] [place] [address] Care Team Providers Care Consumer Advocate Name Role Phone Tristen Hunter MD Primary Care Provider [phone] Encounter Details Date Type Department Care Team (Late st Contact Info) Description 10/01/2023 Orders Only Hematology [place] [address] Cl Hess MD [facility] DR ONCOLOGY [place] [id number] Social History Tobacco Use Types Packs/Day Years Used Date Smoking Tobacco: Former Cigarettes 30 1 963 - 1992 Smokeless Tobacco: Never Alcohol Use Standard Drinks/Week Comments Yes 7 (1 standard drink = 0.6 oz pur e alcohol) [facility] Utilities Answer Date Recorded In [...] TH Visit (TeleHealth) Radiation Oncology at [address] [phone] Ping Moore PA [facility] HEMATOLOGY [place] [address] 03/26/2024 9:30 AM EST Office Visit Hematology/Oncology at [address] [phone] [place] [address] 03/26/2024 9:30 AM EST Infusion Hematology Oncology at [address] [phone] 04/09/2024 9:30 AM EST Office Visit Hematology/Oncology at [address] [phone] Cl Hess MD [facility] [place] [address] HEMATOLOGY AND ONCOLOGY [place], [place] [address] 04/09/2024 10:00 AM EST Infusion Hematology Oncology at [address] [phone] 04/23/2024 9:30 AM EST Office Visit Hematology/Oncology at [address] [phone] Cl Hess MD [facility] [place] [address] [address] [place] [address] 04/23/2024 10:00 AM EST Infusion Hematology Oncology at [address] [phone] 05/18/2024 4:30 PM EDT TH Visit (TeleHealth) [place] [address] Malachi Rothman MD [facility] [place] [address] documented as of this encounter Visit Diagnoses Not on filedocumented in this encounter Care Teams Consumer Advocate Relationship Specialty Start Date End Date Tristen Hunter MD [address] [place] [address] [place] [address] PCP - General Family Medicine 07/04/23 documented as of this encounter
--- OUTSIDE RECORDS SUMMARY | 2024-03-12 10:53 | XMS_ITS | Encounter Summary ---
[place] [address] Care Team Providers Care Technical Services Assistant Name Role Phone Tristen Hunter MD Primary Care Provider [phone] Encounter Details Date Type Department Care Team (Latest Contact Info) Description 09/13/2023 Specialty [place] [phone] Casandra Walton, [facility] Refill Coordination - Manual (lipase/protease/amyl ase) for Enzyme Social History Tobacco Use Types Packs/Day Years Used Date Smoking Tobacco: Former Cigarettes 4 30 1 963 - 1992 Smokeless Tobacco: Never Alcohol Use Standard Drinks/Week Comments Yes 7 (1 standard drink = 0.6 oz pur e alcohol) [facility] Utilities Answer Date Recorded In the [...] EST TH Visit (TeleHealth) Radiation Oncology at [address] [phone] Ping Moore PA [facility] DR [place] [address] 03/26/2024 9:30 AM EST Office Visit Hematology/Oncology at [address] [phone] [address] HEMATOLOGY AND ONCOLOGY [place], [place] [address] 03/26/2024 9:30 AM EST Infusion Hematology Oncology at [address] [phone] 04/09/2024 9:30 AM EST Office Visit Hematology/Oncology at [address] [phone] Cl Hess MD [facility] [address] [address] HEMATOLOGY AND ONCOLOGY [place], [place] [phone] 04/09/2024 10:00 AM EST Infusion Hematology Oncology at [address] [phone] 04/23/2024 9:30 AM EST Office Visit Hematology/Oncology at [address] [phone] Cl Hess MD [facility] [place] [address] [address] HEMATOLOGY AND ONCOLOGY [place], [place] [address] 04/23/2024 10:00 AM EST Infusion Hematology Oncology at [address] [phone] 05/18/2024 4:30 PM EDT TH Visit (TeleHealth) [place] [address] Malachi Rothman MD [facility] [place] [address] documented as of this encounter Visit Diagnoses Not on filedocumented in this encounter Care Teams Technical Services Assistant Relationship Specialty Start Date End Date Tristen Hunter MD [address] [place] [address] [place] [address] PCP - General Family Medicine 07/04/23 documented as of this encounter
--- OUTSIDE RECORDS SUMMARY | 2024-03-12 10:54 | XMS_ITS | Encounter Summary ---
[place] [address] Care Team Providers Care Expanded Duty Dental Assistant Name Role Phone Tristen Hunter MD Primary Care Provider [phone] Encounter Details Date Type Department Care Team [...] Recorded In the past 12 months has [employer], gas, oil, or water company threatened [...] EST TH Visit (TeleHealth) Radiation Oncology at [address] [phone] Ping Moore PA [facility] DR HEMATOLOGY [place] [address] 03/26/2024 9:30 AM EST Office Visit Hematology/Oncology at [address] [phone] Yessi Renee APRN [address] [place] [address] DR HEMATOLOGY [place] [address] 03/26/2024 9:30 AM EST Infusion Hematology Oncology at [address] [phone] 04/09/2024 9:30 AM EST Office Visit Hematology/Oncology at [address] [phone] Cl Hess MD [facility] [place] [address] [address] HEMATOLOGY AND ONCOLOGY [place], [place] [phone] 04/09/2024 10:00 AM EST Infusion Hematology Oncology at [address] [phone] 04/23/2024 9:30 AM EST Office Visit Hematology/Oncology at [address] [phone] Cl Hess MD [facility] [place] [address] [address] HEMATOLOGY [place] [address] 04/23/2024 10:00 AM EST Infusion Hematology Oncology at [address] [phone] 05/18/2024 4:30 PM EDT TH Visit (TeleHealth) [place] [address] Malachi Rothman MD [facility] [place] [address] documented as of this encounter Visit Diagnoses Not on filedocumented in this encounter Care Teams Expanded Duty Dental Assistant Relationship Specialty Start Date End Date Tristen Hunter MD [address] [place] [address] [place] [address] PCP - General Family Medicine 07/04/23 documented as of this encounter
--- OUTSIDE RECORDS SUMMARY | 2024-03-12 10:54 | XMS_ITS | Encounter Summary ---
Author Organization [facility] [place] [address] Care Team Providers Care It Infrastructure Specialist Name Role Phone Tristen Hunter MD Primary Care Provider [phone] Encounter Details Date Type Department Care Team (Latest Contact Info) Description 07/26/2023 9:00 AM EDT Clinical Support Hematology/Oncology at [address] [phone] [facility] DR [place] [address] Malignant neoplasm of prostate Social History Tobacco Use Types Packs/Day Years Used Date Smoking Tobacco: Former Cigarettes 4 1 - 1992 Smokeless Tobacco: Never Alcohol Use Standard Drinks/Week Comments Yes 7 (1 standard drink = 0.6 oz pur e alcohol) [facility] Utilities Answer Date Recorded In the past 12 months has [employer] electric, gas, oil, or water company threatened [...] Progress Notes * Lupe Velasquez, RD - 07/26/2023 9:00 AM EDT [facility] Initial Assessment Patient Name: Wero Sadler Diagnosis: [...] today. Patient came alone to clinic, used [employer] for a ride. He lives in [place], [place] with his brother. His brother does most of the cooking at home; patient sometimes fixes himself breakfast. He is blind. 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 He has IDDM, butdoes not strictly limit [...] year 07/31/22-07/05/23 Estimated needs based on 83.7 [id number] kcals (25-30 kcal/kg) 109-126 g protein (1.3-1.5 [...] EST TH Visit (TeleHealth) Radiation Oncology at [address] [phone] Ping Moore PA [facility] [place] [address] 03/26/2024 9:30 AM EST Office Visit Hematology/Oncology at [address] [phone] [address] HEMATOLOGY AND ONCOLOGY [place], [place] [address] 03/26/2024 9:30 AM EST Infusion Hematology Oncology at [address] [phone] 04/09/2024 9:30 AM EST Office Visit Hematology/Oncology at [address] [phone] Cl Hess MD [facility] [place] [address] [address] HEMATOLOGY AND ONCOLOGY [place], [place] [address] 04/09/2024 10:00 AM EST Infusion Hematology Oncology at [address] [phone] 04/23/2024 9:30 AM EST Office Visit Hematology/Oncology at [address] [phone] Cl Hess MD [facility] [place] [address] [address] HEMATOLOGY AND ONCOLOGY [place], [place] [address] 04/23/2024 10:00 AM EST Infusion Hematology Oncology at [address] [phone] 05/18/2024 4:30 PM EDT TH Visit (TeleHealth) [place] [address] Malachi Rothman MD [facility] [place] [address] documented as of this encounter Visit Diagnoses Diagnosis Malignant neoplasm of prostate documented in this encounter Care Teams It Infrastructure Specialist Relationship Specialty Start Date End Date Tristen Hunter MD [address] [place] [address] [place] [address] PCP - General Family Medicine 07/04/23 documented as of this encounter
--- OUTSIDE RECORDS SUMMARY | 2024-03-12 10:54 | XMS_ITS | Encounter Summary ---
[place] [address] Care Team Providers Care Cokeman Name Role Phone Tristen Hunter MD Primary Care Provider [phone] Encounter Details Date Type Department Care Team (Late st Contact Info) Description 07/05/2023 1:44 PM EDT Anesthesia Event [place] [address] Joe March MD [facility] [place] [address] Anesthesia Record Procedure Summary Procedure Name Responsible [...] balbuena 07/05/23 1440 by Laura Walsh RN PIV 07/05/23; 1222; afuf-kbt-yzgysf catheter system; 20 gauge; median cubital vein (antecubital fossa), left; Anatomical Landmarks; Savannah Ma; distraction, intradermal injection; 0; 07/05/23; 1639 07/05/23 1222 by Savannah Jamison RN 07/05/23 1639 by Judi Carmichael RN ETT Mask Ventilation: Ea sy (1); ETT Type: Cuffed, Oral; ETT Size: 7.5 mm; Mac Blade: 4; Notes: Asleep, Pre-O2; Attempts: 1; Laryngoscopy Grade: 2; ETT Placement Verified By: Capnometry, Visual; Secured at Teeth: 22 cm; Inserted by: asim; Removal Date: 07/05/23; Removal Time: 1538 07/05/23 1351 by Rafael Marinelli MD 07/05/23 1538 by Joe March MD Incision 07/05/23; 1426; Righ t; chest; LDA not present upon assessment; 01/29/24; 0502 07/05/23 1426 by Laura Walsh RN 01/29/24 0502 by Lilly Yi RN Incision 07/05/23; 1508; abdo men; laparoscopic punctures (specify); s/p diagnostic laparoscopy, trocar sites x 2; LDA not present upon assessment; 01/29/24; 0502 07/05/23 1508 by Laura Walsh, RN 01/29/24 0502 by Lilly Yi RN documented in this encounter Social History [...] Procedure Summary Date: 07/05/23 Room / Location: [facility] [place] [address] [place] [address] OSC Anesthesia Start: 1343 Anesthesia Stop: 1553 Procedures: LAPAROSCOPY, DIAGNOSTIC, ABDOMEN (WRVU 5.14) (Abdomen) MARIO\AMELIA.CATHETER,TUNNELED, WITH SQ PORT OR PUMP OVER 5YR (WRVU 5.79) (Chest) FLUOROSCOPY (WRVU 0.3) Diagnosis: (PANCREAS CANCER) Surgeons: Charu Balbuena MD Responsible Provider: Joe March MD Anesthesia Type: general ASA Status: 3 All Anesthesia Providers: Anesthesiologist: Joe March MD Purchasing Intern: Rafael Marinelli MD Vitals Value Taken Time BP 103/57 07/05/23 1542 Temp Pulse 54 07/05/23 1542 Resp 16 07/05/23 1542 SpO2 100 % 07/05/23 1542 Pain Level Patient Location: PACU/[facility] Level of Consciousness: Awake and Alert [...] Colon adenocarcinoma 2009 recieved chemo in [place] ??? Coronary artery disease ??? Coronary artery [...] 20.72) performed by Ismael Wu MD at [facility] OR ??? PRO ARTHROPLASTY ACETABULAR/PROX FEM PROSTC AGRFT/ALGRFT Right 11/17/2021 TOTAL HIP ARTHROPLASTY - POSTERIOR (WRVU 20.72) performed by Ismael Wu MD at [facility] MA[facility] OR ??? PRO ENDOSCOPIC US EXAM, ESOPH N/A 07/02/2023 UPPER EUS- ENDOSCOPIC ULTRASOUND (WRVU 3.47) performed by Pako Lopez MD at [facility] ENDOSCOPY ??? PRO ERCP, W/REMOVAL STONE, TARYN/PANCR DUCTS 07/02/2023 ERCP W/REMOVAL CALCULI/DEBRIS FROM BILARY/PANCREATIC DUCT(S) (WRVU 6.63) performed by Pako Lopez MD at [facility] ENDOSCOPY ??? PRO ERCP,DIAGNOSTIC N/A 07/02/2023 ERCP (WRVU 5.85) performed by Pako Lopez MD at [facility] ENDOSCOPY ??? PRO EXPLORATION NOT FOLLOWED BY SURG NECK ARTERY Right 07/14/2021 @EXPLORATION NOT FOLLOWED BY SURGICAL REPAIR, ARTERY; NECK (CAROTID OR SUBCLAVIAN) (WRVU 9.19) performed by Basim Barr MD at [facility] MA[facility] OR ??? PRO LASER VAPORIZATION SURGERY PROSTATE, COMPLETE Midline 02/02/2021 CYSTO, LASER TURP (WRVU 12.15) performed by Cayetano Engle MD at [facility] MAIN OR ??? PRO PLACE TRANSCATHETER STENT, CCA W EMBOLIC PROECT Right 07/14/2021 @TRANSCATH INTRAVASCULAR STENT,CAROTID,PERC,W\EMBOLIC PROT. (WRVU 18) performed by Basim Barr MD at [facility] MAIN OR Social History Tobacco Use [...] vascular procedure at [facility] in [place]: shaking Has tolerated MRI and CT contrast. [...] 73 y.o. male with CAD s/p CABGx3 (2018, on Imdur and [...] history, exam findings and management plan. Joe March MD Region - Other Informed Consent: Anesthetic plan and risks discussed with patient. Plan discussed with attending and resident. Anesthesia Screening documented in this encounter Plan of Treatment Upcoming Encounters Date Type Department Care Team (Late st Contact Info) Description 03/24/2024 9:00 AM EST TH Visit (TeleHealth) Radiation Oncology at [address] [phone] Ping Moore PA [facility] DR HEMATOLOGY [place] [address] 03/26/2024 9:30 AM EST Office Visit Hematology/Oncology at [address] [phone] Yessi Renee [address] HEMATOLOGY AND ONCOLOGY [place], [place] [phone] 03/26/2024 9:30 AM EST Infusion Hematology Oncology at [address] [phone] 04/09/2024 9:30 AM EST Office Visit Hematology/Oncology at [address] [phone] Cl Hess MD [facility] [place] [address] [address] HEMATOLOGY AND ONCOLOGY [place], [place] [address] 04/09/2024 10:00 AM EST Infusion Hematology Oncology at [address] [phone] 04/23/2024 9:30 AM EST Office Visit Hematology/Oncology at [address] [phone] Cl Hess MD [facility] [place] [address] Yessi Renee APRN [address] [place] [address] DR HEMATOLOGY AND ONCOLOGY [place], [place] [address] 04/23/2024 10:00 AM EST Infusion Hematology Oncology at [address] [phone] 05/18/2024 4:30 PM EDT TH Visit (TeleHealth) [place] [phone] Malachi Rothman MD [facility] [place] [address] documented as of this encounter Visit Diagnoses [...] mg documented in this encounter Care Teams Cokeman Relationship Specialty Start Date End Date Tristen Hunter MD [address] [place] [address] [place] [address] PCP - General Family Medicine 07/04/23 documented as of this encounter
--- OUTSIDE RECORDS SUMMARY | 2024-03-12 10:54 | XMS_ITS | Encounter Summary ---
Author Organization [facility] Address [facility] [place] [address] Care Team Providers Care Assistant Purchasing Manager Name Role Phone Tristen Hunter MD Primary Care Provider [phone] Encounter Details Date Type Department Care Team (Late st Contact Info) Description 07/05/2023 11:35 AM EDT - 07/05/2023 4:44 PM EDT Hospital Encounter [place] [phone] Charu Balbuena MD [facility] [address] Discharge Disposition: Home Social History Tobacco Use Types Packs/Day Years Used Date Smoking Tobacco: Former Cigarettes 4 30 1 1992 Smokeless Tobacco: Never Alcohol Use Standard Drinks/Week Comments Yes 7 (1 standard drink = 0.6 oz pur e alcohol) [facility] Utilities Answer Date Recorded In the past 12 months has [employer], gas, oil, or water [employer] threatened to shut off services in your [...] closest emergency room or call the hospital teletype operator at [phone] and ask for physician felt carbonizer covering for your physician. Questions or problems after 5pm or on a weekend: Call the [facility] teletype operator at and ask for the physician felt carbonizer covering for your doctor. * Patient Instructions* [...] please call the surgery clinic nurses at [phone]. If you have any concerns at night or when the clinic is closed then please call the main [facility] number and ask to speak with the general surgery resident felt carbonizer. That number is [phone]. Dr. Balbuena will see you back after [...] 20 mg by mouth daily. 05/20/2023 omega 0-igr-zkq-fish oil 250-350-1,000 mg Capsule Take 1,000 mg [...] (E.C.) Take 81 mg by mouth daily. loperamide (IMODIUM A-D) 2 mg Tablet Take by mouth 4 times daily as needed for Diarrhea. Maximum 16 mg in 24 hours 10/30/2023 rmsxuh-phiggiva-leqq ase (Creon 24) 24,000-76,000 -120,000 unit capsuleIndications:M [...] Balbuena MD - 07/05/2023 2:26 PM EDT [facility] Operative Note Patient Name: Wero Sadler : [id number] MR#: [id number] Case Date: 07/05/2023 Surgeon: Surgeon(s) and Role: [...] liver. No biopsies were performed. An 8 [place] Mediport PowerPort was placed successfully via the [...] TH Visit (TeleHealth) Radiation Oncology at [address] [phone] Ping Moore PA [facility] DR HEMATOLOGY [place] [address] 03/26/2024 9:30 AM EST Office Visit Hematology/Oncology at [address] [phone] [address] HEMATOLOGY AND ONCOLOGY [place], [place] [address] 03/26/2024 9:30 AM EST Infusion Hematology Oncology at [address] [phone] 04/09/2024 9:30 AM EST Office Visit Hematology/Oncology at [address] [phone] Cl Hess MD [facility] [place] [address] [address] HEMATOLOGY AND ONCOLOGY [place], [place] [address] 04/09/2024 10:00 AM EST Infusion Hematology Oncology at [address] [phone] 04/23/2024 9:30 AM EST Office Visit Hematology/Oncology at [address] [phone] Cl Hess MD [facility] [place] [address] [address] HEMATOLOGY AND ONCOLOGY [place], [place] [address] 04/23/2024 10:00 AM EST Infusion Hematology Oncology at [address] [phone] 05/18/2024 4:30 PM EDT TH Visit (TeleHealth) [place] [address] Malachi Rothman MD [facility] [place] [address] documented as of this encounter Procedures Procedure Name Priority Date/Time Associated Diagnosis Comments XR CHEST ONE VIEW Routine 07/05/2023 4:1 1 PM EDT XR FLUORO NO RAD <1HR - OR USE Routine 07/05/2023 2:50 PM EDT Fluoroscopy Exam Up To 1 Hr Phy Or Oth th Care Prov ([id number]) Yes 07/05/2023 1:44 PM EDT [facility] Insert Tunneled CV Cath w SubQ Port, Age 5 Yrs or Older ([id number]) Yes 07/05/2023 1:44 PM EDT [facility] Lap, Diagnostic Abdomen ([id number]) Yes 07/05/2023 1:44 PM EDT [facility] POCT GLUCOSE Routine 07/05/2023 12:32 PM EDT documented in this encounter Results * XR Chest One View (07/05/2023 4:11 PM EDT) [employer] WORKSTATION ID [id number] RAD Anatomical Region Laterality Modality Chest N/A Digital Radiogra phy Impressions 07/06/2023 7:33 AM EDT No pneumothorax. Thank you for letting us participate in the care of this patient. ??If you are a health care provider and have any questions regarding this report, please contact the number below. ??For patients who have questions please contact the health health care analyst that requested your imaging first. ? Electronically signed by: Shelly Lombardo MD, [facility] ([phone]), at 07/06/2023 7:33 AM Narrative 07/06/2023 7:33 [...] who have questions please contactthe health health care analyst that requested your imaging first. Electronically signed by: Shelly Lombardo MD, [facility]([phone]), at 07/06/2023 7:33 AM Charu Balbuena MD IMG DX ORDERABLES * XR Fluoro No Rad <1Hr - OR Use (07/05/2023 2:50 PM EDT) Narrative D[employer], Auditing User - 07/05/2023 3:10 PM EDT This exam is auto-finalizing. No interpretation was done. Charu Balbuena MD IMG FLUORO ORDERAB LES * POCT Glucose (07/05/2023 12:32 PM EDT) Glucose, POC 160 65 - 199 mg/dL [facility] Comment: Supplemental ranges: <140 mg/dL before meals <180 mg/dL all other times of the day Blood 07/05/2023 12:3 2 PM EDT 07/05/2023 12:32 PM EDT Charu Balbuena MD POINT OF CARE TEST ORDERABLES [facility] [place] [address] documented in this encounter Visit Diagnoses Not [...] documented in this encounter Care Teams Assistant Purchasing Manager Relationship Specialty Start Date End Date Tristen Hunter MD [address] [place] [address] [place] [address] PCP - General Family Medicine 07/04/23 documented as of this encounter
--- OUTSIDE RECORDS SUMMARY | 2024-03-12 10:54 | XMS_ITS | Encounter Summary ---
Author Organization [facility] Address [facility] [place] [address] Care Team Providers Care Freight Team Associate Name Role Phone Tristen Hunter MD Primary Care Provider [phone] Encounter Details Date Type Department Care Team (Late st Contact Info) Description 08/20/2023 Orders Only Radiation Oncology at [address] [phone] Ping Moore PA [facility] DR [place] [address] Malignant neoplasm of prostate Social History Tobacco Use Types Packs/Day Years Used Date Smoking Tobacco: Former Cigarettes 4 30 1 - 1992 Smokeless Tobacco: Never Alcohol Use Standard Drinks/Week Comments Yes 7 (1 standard drink = 0.6 oz pur e alcohol) [facility] Utilities Answer Date Recorded In the past 12 months has [employer] electric, gas, oil, or water company threatened [...] EST TH Visit (TeleHealth) Radiation Oncology at [address] [address] Ping Moore PA [facility] HEMATOLOGY [place] [address] 03/26/2024 9:30 AM EST Office Visit Hematology/Oncology at [address] [phone] [address] HEMATOLOGY AND ONCOLOGY [place], [place] [address] [phone] 03/26/2024 9:30 AM EST Infusion Hematology Oncology at [address] [address] 04/09/2024 9:30 AM EST Office Visit Hematology/Oncology at [address] [phone] Cl Hess MD [facility] [place] [address] Yess[address] Renee [address] HEMATOLOGY AND ONCOLOGY [place], [place] [phone] 04/09/2024 10:00 AM EST Infusion Hematology Oncology at [address] [phone] 04/23/2024 9:30 AM EST Office Visit Hematology/Oncology at [address] [phone] Cl Hess MD [facility] [place] [address] [address] [place] [address] 04/23/2024 10:00 AM EST Infusion Hematology Oncology at [address] [phone] 05/18/2024 4:30 PM EDT TH Visit (TeleHealth) [place] [address] Malachi Rothman MD [facility] [place] [address] documented as of this encounter Visit Diagnoses Diagnosis Malignant neoplasm of prostate documented in this encounter Care Teams Freight Team Associate Relationship Specialty Start Date End Date Tristen Hunter MD [address] [place] [address] [place] [address] PCP - General Family Medicine 07/04/23 documented as of this encounter
--- OUTSIDE RECORDS SUMMARY | 2024-03-12 10:54 | XMS_ITS | Encounter Summary ---
[place] [address] Care Team Providers Care Referral Rn Name Role Phone Tristen Hunter MD Primary Care Provider [phone] Encounter Details Date Type Department Care Team [...] Recorded In the past 12 months has [employer] electric, gas, oil, or water company threatened [...] TH Visit (TeleHealth) Radiation Oncology at [address] [phone] Ping Moore PA [facility] DR HEMATOLOGY [place] [address] 03/26/2024 9:30 AM EST Office Visit Hematology/Oncology at [address] [phone] Yessi Renee APRN [address] [place] [address] [place] [address] 03/26/2024 9:30 AM EST Infusion Hematology Oncology at [address] [phone] 04/09/2024 9:30 AM EST Office Visit Hematology/Oncology at [address] [address] Cl Hess MD [facility] [place] [address] [address] HEMATOLOGY AND ONCOLOGY [place], [place] [phone] 04/09/2024 10:00 AM EST Infusion Hematology Oncology at [address] [phone] 04/23/2024 9:30 AM EST Office Visit Hematology/Oncology at [address] [phone] Cl Hess MD [facility] [place] [address] [address] [place] [address] 04/23/2024 10:00 AM EST Infusion Hematology Oncology at [address] [phone] 05/18/2024 4:30 PM EDT TH Visit (TeleHealth) [place] [address] Malachi Rothman MD [facility] [place] [address] documented as of this encounter Visit Diagnoses Not on filedocumented in this encounter Care Teams Referral Rn Relationship Specialty Start Date End Date Tristen Hunter MD [address] [place] [address] [place] [address] PCP - General Family Medicine 07/04/23 documented as of this encounter
--- OUTSIDE RECORDS SUMMARY | 2024-03-12 10:54 | XMS_ITS | Encounter Summary ---
[place] [address] Care Team Providers Care District Loss Prevention Manager Name Role Phone CherryAlo Lon RUTHERFORD Primary Care Provider [phone] Encounter Details Date Type Department Care Team (Late st Contact Info) Description 07/02/2023 2:25 PM EDT Ancillary [place] [phone] Social History Tobacco Use Types Packs/Day Years Used Date Smoking Tobacco: Former Cigarettes 07 01 1 963 - 1992 Smokeless Tobacco: Never Alcohol Use Standard Drinks/Week Comments Yes 7 (1 standard drink = 0.6 oz pur e alcohol) [facility] Utilities Answer Date Recorded In the [...] in a fdc (including now)? No 06/04/2023 Sex and Gender Information Value Date Recorded Sex Assigned at Not on file Gender Identity Not on file Sexual Orientation Not on file documented as of this encounter Plan of Treatment Upcoming Encounters Date Type Department Care Team (Late st Contact Info) Description 03/24/2024 9:00 AM EST TH Visit (TeleHealth) Radiation Oncology at [address] [phone] Ping Moore PA [facility] [place] [address] 03/26/2024 9:30 AM EST Office Visit Hematology/Oncology at [address] [phone] Yessi Renee APRN [address] [place] [address] DR HEMATOLOGY AND ONCOLOGY [place], [place] [phone] 03/26/2024 9:30 AM EST Infusion Hematology Oncology at [address] [phone] 04/09/2024 9:30 AM EST Office Visit Hematology/Oncology at [address] [phone] Cl Hess MD [facility] [place] [address] [address] [place] [address] 04/09/2024 10:00 AM EST Infusion Hematology Oncology at [address] [phone] 04/23/2024 9:30 AM EST Office Visit Hematology/Oncology at [address] [phone] Cl Hess MD [facility] [place] [address] [address] [place] [address] 04/23/2024 10:00 AM EST Infusion Hematology Oncology at [address] [phone] 05/18/2024 4:30 PM EDT TH Visit (TeleHealth) [place] [address] Malachi Rothman MD [facility] [address] documented as of this encounter Procedures Procedure Name Priority Date/Time Associated Diagnosis Comments XR ERCP Routine 07/02/2023 3:29 PM EDT documented in this encounter Results * XR ERCP (07/02/2023 3:29 PM EDT) Narrative [facility] - 07/02/2023 3:31 PM EDT See PACS for result report. Pako Lopez MD IM FILM LIBRARY ORD ERABLES [facility] [place], [place] documented in this encounter Visit Diagnoses Not on filedocumented in this encounter Care Teams District Loss Prevention Manager Relationship Specialty Start Date End Date Alo Carey DO [address] [place] [address] [place] [phone] PCP - General Internal Medicine 08/31/20 07/03/23 documented as of this encounter
--- OUTSIDE RECORDS SUMMARY | 2024-03-12 10:54 | XMS_ITS | Encounter Summary ---
Author Organization [facility] Address [facility] [place] [address] Care Team Providers Care Mangle Roll Operator Name Role Phone Tristen Hunter MD Primary Care Provider [phone] Encounter Details Date Type Department Care Team (Late st Contact Info) Description 08/09/2023 8:30 AM EDT Office Visit Hematology/Oncology at [address] [phone] Cl Hess MD [facility] [place] [address] Yessi Renee, ARNOLD [address] [place] [address] [place] [address] Malignant neoplasm of head of pancreas Social History Tobacco Use Types Packs/Day Years Used Date Smoking Tobacco: Former Cigarettes 4 30 1 963 - 1992 Smokeless Tobacco: Never Alcohol Use Standard Drinks/Week Comments Yes 7 (1 standard drink = 0.6 oz pur e alcohol) [facility] Utilities Answer Date Recorded In [...] periduodenal or perilesional adenopathy was appreciated Impression: [id number] pancreas head mass lesion with biliary and [...] metastatic disease/disease progression on interim staging evaluation. [facility] second read of CT c/a/p from [...] due to CVA 14. Genetic testing: Result: [employer] Cancer[employer]-Expanded +RNAinsight Panel showed no mutation was [...] chest pain or swelling. 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 He has a h/o multiple medical problems as above, including colon cancer, prostate cancer, ASCVD, PVDz s/p carotid endarterectomy, prior CVA, DM and others. 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 While in [facility], he presented with chest pain and SOB [...] discussed. Pathology was requested for review at [facility] and we also requested that images be sent. His case was reviewed at [facility] on 06/18/23. The Ct from [...] will be followed also by our clinical utilities and maintenance supervisor, Lupe Velasquez. On 07/12/23 he began [...] EST TH Visit (TeleHealth) Radiation Oncology at [address] [phone] Ping Moore PA [facility] DR [place] [address] 03/26/2024 9:30 AM EST Office Visit Hematology/Oncology at [address] [phone] Yessi Renee [address] HEMATOLOGY AND ONCOLOGY [place], [place] [phone] 03/26/2024 9:30 AM EST Infusion Hematology Oncology at [address] [phone] 04/09/2024 9:30 AM EST Office Visit Hematology/Oncology at [address] [phone] Cl Hess MD [facility] [place] [address] Yess[address] Renee [address] HEMATOLOGY AND ONCOLOGY [place], [place] [address] 04/09/2024 10:00 AM EST Infusion Hematology Oncology at [address] [phone] 04/23/2024 9:30 AM EST Office Visit Hematology/Oncology at [address] [phone] Cl Hess MD [facility] [place] [address] Yessi Renee APRN [address] [place] [address] DR [place] [address] 04/23/2024 10:00 AM EST Infusion Hematology Oncology at [address] [phone] 05/18/2024 4:30 PM EDT TH Visit (TeleHealth) [place] [address] Malachi Rothman MD [facility] [place] [address] documented as of this encounter Visit Diagnoses Diagnosis Malignant neoplasm of head of pancreas documented in this encounter Care Teams Mangle Roll Operator Relationship Specialty Start Date End Date Tristen Hunter MD [address] [place] [address] [place] [address] PCP - General Family Medicine 07/04/23 documented as of this encounter
--- OUTSIDE RECORDS SUMMARY | 2024-03-12 10:54 | XMS_ITS | Encounter Summary ---
Author Organization [facility] [place] [address] Care Team Providers Care Haulpak Driver Name Role Phone Tristen Hunter MD Primary Care Provider [phone] Encounter Details Date Type Department Care Team (Late st Contact Info) Description 07/25/2023 Orders Only Hematology [place] [address] Cl Hess MD [facility] DR ONCOLOGY [place] [phone] Social History Tobacco Use Types Packs/Day Years Used Date Smoking Tobacco: Former Cigarettes 4 30 1 963 - 1992 Smokeless Tobacco: Never Alcohol Use Standard Drinks/Week Comments Yes 7 (1 standard drink = 0.6 oz pur e alcohol) [facility] Utilities Answer Date Recorded In the [...] EST TH Visit (TeleHealth) Radiation Oncology at [address] [phone] Ping Moore PA [facility] HEMATOLOGY [place] [address] 03/26/2024 9:30 AM EST Office Visit Hematology/Oncology at [address] [phone] [address] HEMATOLOGY [place] [address] 03/26/2024 9:30 AM EST Infusion Hematology Oncology at [address] [phone] 04/09/2024 9:30 AM EST Office Visit Hematology/Oncology at [address] [address] Cl Hess MD [facility] [place] [address] [address] HEMATOLOGY AND ONCOLOGY [place], [place] [address] 04/09/2024 10:00 AM EST Infusion Hematology Oncology at [address] [phone] 04/23/2024 9:30 AM EST Office Visit Hematology/Oncology at [address] [phone] Cl Hess MD [facility] [place] [address] [address] HEMATOLOGY [place] [address] 04/23/2024 10:00 AM EST Infusion Hematology Oncology at [address] [phone] 05/18/2024 4:30 PM EDT TH Visit (TeleHealth) [place] [address] Malachi Rothman MD [facility] [place] [address] documented as of this encounter Visit Diagnoses Not on filedocumented in this encounter Care Teams Haulpak Driver Relationship Specialty Start Date End Date Tristen Hunter MD [address] [place] [address] [place] [address] PCP - General Family Medicine 07/04/23 documented as of this encounter
--- OUTSIDE RECORDS SUMMARY | 2024-03-12 10:54 | XMS_ITS | Encounter Summary ---
[place] [address] Care Team Providers Care Inspector Assembly Name Role Phone Tristen Hunter MD Primary Care Provider [phone] Encounter Details Date Type Department Care Team (Latest Contact Info) Description 08/06/2023 Specialty [place] [phone] Betty oTvar [facility] Refill Coordination - [...] TH Visit (TeleHealth) Radiation Oncology at [address] [phone] Ping Moore PA [facility] DR HEMATOLOGY [place] [address] 03/26/2024 9:30 AM EST Office Visit Hematology/Oncology at [address] [phone] [address] HEMATOLOGY AND ONCOLOGY [place], [place] [address] 03/26/2024 9:30 AM EST Infusion Hematology Oncology at [address] [phone] 04/09/2024 9:30 AM EST Office Visit Hematology/Oncology at [address] [phone] Cl Hess MD [facility] [place] [address] [address] HEMATOLOGY AND ONCOLOGY [place], [place] [phone] 04/09/2024 10:00 AM EST Infusion Hematology Oncology at [address] [phone] 04/23/2024 9:30 AM EST Office Visit Hematology/Oncology at [address] [phone] Cl Hess MD [facility] [place] [address] [address] HEMATOLOGY AND ONCOLOGY [place], [place] [address] 04/23/2024 10:00 AM EST Infusion Hematology Oncology at [address] [phone] 05/18/2024 4:30 PM EDT TH Visit (TeleHealth) [place] [address] Malachi Rothman MD [facility] [place] [address] documented as of this encounter Visit Diagnoses Not on filedocumented in this encounter Care Teams Inspector Assembly Relationship Specialty Start Date End Date Tristen Hunter MD [address] [place] [address] [place] [address] PCP - General Family Medicine 07/04/23 documented as of this encounter
--- OUTSIDE RECORDS SUMMARY | 2024-03-12 10:54 | XMS_ITS | Encounter Summary ---
Author Organization [facility] Address [facility] [place] [address] Care Team Providers Care Ski Binding Fitter And Repairer Name Role Phone Alo Carey Primary Care Provider [phone] Encounter Details Date Type Department Care Team (Late st Contact Info) Description 07/02/2023 2:00 PM EDT - 07/02/2023 3:30 PM EDT [place] [address] Pako Lopez MD [facility] [place] [address] UPPER EUS- ENDOSCOPIC ULTRASOUND (WRVU 3.47) Social History Tobacco Use Types Packs/Day Years Used Date Smoking Tobacco: Former Cigarettes 4 1992 Smokeless Tobacco: Never Alcohol Use Standard Drinks/Week Comments Yes 7 (1 standard drink = 0.6 oz pur e alcohol) [facility] Utilities Answer Date Recorded In the past 12 months has [employer] gas, oil, or water company threatened to [...] in a long-term (including now)? No 06/04/2023 Sex and Gender [...] 20 mg by mouth daily. 05/20/2023 omega 0-yjw-lva-fish oil 250-350-1,000 mg Capsule Take 1,000 mg [...] Maximum 16 mg in 24 hours 10/30/2023 vukduc-ficqxjjq-wwri ase DR (Creon 24) 24,000-76,000 -120,[address] capsuleIndications:M alignant neoplasm of head of pancreas,Pancreatic [...] uncovered metal stent placed Apr 2023 in [facility], concern for stent occlusion Patient Active [...] Operative Note Patient Name: Wero Sadler : [id number] MR#: [id number] Case Date: 07/02/2023 Surgeon: Surgeon(s) and Role: [...] TH Visit (TeleHealth) Radiation Oncology at [address] [phone] Ping Moore [facility] DR HEMATOLOGY [place] [address] 03/26/2024 9:30 AM EST Office Visit Hematology/Oncology at [address] [phone] Yessi Renee BARREL BANDER [address] [place] [address] DR HEMATOLOGY AND ONCOLOGY [place], [place] [phone] 03/26/2024 9:30 AM EST Infusion Hematology Oncology at [address] [phone] 04/09/2024 9:30 AM EST Office Visit Hematology/Oncology at [address] [phone] Cl Hess MD [facility] [place] [place] [address] Yessi Renee, [address] [place]AT[place] [address] 04/09/2024 10:00 AM EST Infusion Hematology Oncology at [address] [phone] 04/23/2024 9:30 AM EST Office Visit Hematology/Oncology at [address] [phone] Cl Hess MD [facility] [place] [address] [address] HEMATOLOGY [place] [address] 04/23/2024 10:00 AM EST Infusion Hematology Oncology at [address] [phone] 05/18/2024 4:30 PM EDT TH Visit (TeleHealth) [place] [address] Malachi Rothman MD [facility] [place] [address] documented as of this encounter Procedures Procedure Name Priority Date/Time Associated Diagnosis Comments XR ERCP Routine 07/02/2023 3:29 PM EDT RADIOFREQUENCY ABLATION 07/02/2023 2:39 PM EDT Bets- 1-2 weeks EUS/ERCP patient with pancreatic cancer s/p ercp with stent in [facility]. Persistently elevated bilirubin. Ercp, W/Removal Stone, Lonnie/Pancr Ducts ([id number]) 07/02/2023 2:39 PM EDT Bets- 1-2 weeks EUS/ERCP patient with pancreatic cancer s/p ercp with stent in [facility]. Persistently elevated bilirubin. Ercp, Diagnostic ([id number]) 07/02/2023 2:39 PM EDT Bets- 1-2 weeks EUS/ERCP patient with pancreatic cancer s/p ercp with stent in [facility]. Persistently elevated bilirubin. Endoscopic Us Exam, Esoph ([id number]) 07/02/2023 2:39 PM EDT Bets- 1-2 weeks EUS/ERCP patient with pancreatic cancer s/p ercp with stent in [facility]. Persistently elevated bilirubin. ERCP Routine 07/02/2023 2:22 PM EDT documented in this encounter Results * XR ERCP (07/02/2023 3:29 PM EDT) Narrative [facility] - 07/02/2023 3:31 PM EDT See PACS for result report. Pako Lopez MD [facility] FILM LIBRARY ORD ERABLES Performing Organization Address City/State/[facility] Co de Phone Number [place], [place] * ERCP (07/02/2023 2:22 PM EDT) ERCP [facility] Endoscopy Procedure Date: 07/02/2023 2:22 PM ? Patient Name: Wero Sadler ? Date of : 1950 ? Age: 73 ? Order #: [id number] ? Instrument Name: [id number] ? Procedure: ? ERCP Indications: ? Elevated liver enzymes Providers: ? Real Pemberton ? Agnes Russell James A. Fischer Referring MD: ?Alo Carey Medicines: ? General [...] A biliary stent was visible on the greaser and oiler film. The ? esophagus was successfully intubated [...] Procedure Code(s): ? --- Professional --- ? 79640, Esophagogastroduod enoscopy, ? flexible, transoral; diagnostic, ? [...] ? prosthesis, initial encounter CPT copyright 2021 [employer]. All rights reserved. The codes documented in this report are preliminary and upon ancillary services manager therapy review may be revised to meet current [...] Procedure) 1347 (New Bag - Prov ider: lEdon Cohen RN)1535 (Paused - Provider: Fredi Bernabe CRNA - Comment: Switch to gravity)1536 (Restarted - Provider: Fredi Bernabe CRNA) documented in this encounter Care Teams Ski Binding Fitter And Repairer Relationship Specialty Start Date End Date Alo Carey DO [address] [place] [address] [place] [address] PCP - General Internal Medicine 08/31/20 07/03/23 documented as of this encounter
--- OUTSIDE RECORDS SUMMARY | 2024-03-12 10:54 | XMS_ITS | Encounter Summary ---
Author Organization [facility] [place] [place] [address] Care Team Providers Care Clinical Trial Leader Name Role Phone Tristen Hunter MD Primary Care Provider [phone] Reason for Visit * Reason Onset Date Comments Results 07/26/2023 Encounter Details Date Type Department Care Team (Late st Contact Info) Description 07/26/2023 Telephone Hematology and Oncology at [address] [phone] [address] [place] [address] Results Social History Tobacco Use Types Packs/Day Years Used Date Smoking Tobacco: Former Cigarettes 4 30 1 1992 Smokeless Tobacco: Never Alcohol Use Standard Drinks/Week Comments Yes 7 (1 standard drink = 0.6 oz pur e alcohol) [facility] Utilities Answer Date Recorded In the past 12 months has [employer], gas, oil, or water company threatened to [...] Notes * Telephone Encounter - Queenie Meneses [facility] - 07/26/2023 11:20 AM EDT This test result was discussed with the patient by phone. A copy of the test results have been scanned in the medical record and sent to [facility]. A summary of the results is provided below. Please be advised that [place] law requires that all health care workers respect the confidentiality of this information and not pass it along to other health care providers, insurance companies, or indivi duals without the written permission of the patient. The Familial Cancer Program welcomes any questions about these matters. Our phone number is: [phone]. On 06/13/2023 Wero was seen by Real Cardenas [facility], for genetic counseling and subsequently underwent genetic testing for a hereditary predisposition to cancers in eight major organ systems including breast, gynecologic, gastrointestinal, endocrine, genitourinary, skin, brain/nervous system, sarcoma and hematologic. Following are the results of this test. Result: Abigail's CancerNext-Expanded +Superbly Panel showed no mutation was detected. This means that Wero does not carry a mutation in the genes detectable by this test. The following 71 genes were analyzed: AIP, ALK, APC, MICHELINE, BAP1, BARD1, BMPR1A, BRCA1, BRCA2, BRIP1, CDC73, CDH1, CDK4, CDKN1B, CDKN2A, CHEK2, DICER1, FH, FLCN, KIF1B, LZTR1, MAX, MEN1, MET, MLH1, MSH2, MSH6, MUTYH, NF1, NF2, NTHL1, PALB2, PHOX2B, PMS2, POT1, YBHNJ1Z, PTCH1, PTEN, RAD51C, RAD51D, RB1, RET, SDHA, SDHAF2, SDHB, SDHC, SDHD, SMAD4, SMARCA4, SMARCB1, SMARCE1, STK11, SUFU, LFDH330, TP53, TSC1, TSC2 and VHL (sequencing and [...] Periodic colonoscopy screening as recommended by Wero's general contractor and oncology care team. Skin cancer screening Skin cancer screening and sun protection are important for everyone, regardless of genetic predisposition. Consideration of routine dermatologic/skin exams, as recommended by Wero's primary care provider or key bed installer. Pancreatic cancer management Pancreatic cancer management as recommended by Wero's oncology care team. documented in this encounter Plan of Treatment Upcoming Encounters Date Type Department Care Team (Late st Contact Info) Description 03/24/2024 9:00 AM EST TH Visit (TeleHealth) Radiation Oncology at [address] [phone] [facility] DR [place] [address] 03/26/2024 9:30 AM EST Office Visit Hematology/Oncology at [address] [phone] Yessi Renee GENERATOR REPAIRER [address] [place] [address] HEMATOLOGY AND ONCOLOGY [place], [place] [phone] 03/26/2024 9:30 AM EST Infusion Hematology Oncology at [address] [phone] 04/09/2024 9:30 AM EST Office Visit Hematology/Oncology at [address] [phone] [facility] [place] [address] Yessi Renee, [address] [place] [address] 04/09/2024 10:00 AM EST Infusion Hematology Oncology at [address] [phone] 04/23/2024 9:30 AM EST Office Visit Hematology/Oncology at [address] [address] [facility] [place] [address] [address] [place] [address] 04/23/2024 10:00 AM EST Infusion Hematology Oncology at [address] [phone] 05/18/2024 4:30 PM EDT TH Visit (TeleHealth) [place] [address] [facility] [place] [address] documented as of this encounter Visit Diagnoses Not on filedocumented in this encounter Care Teams Clinical Trial Leader Relationship Specialty Start Date End Date Tristen Hunter MD [address] [place] [address] [place] [address] PCP - General Family Medicine 07/04/23 documented as of this encounter
--- OUTSIDE RECORDS SUMMARY | 2024-03-12 10:54 | XMS_ITS | Encounter Summary ---
[place] [address] Care Team Providers Care Laborer Shellfish Processing Name Role Phone Alo Carey DO Primary Care Provider [phone] Encounter Details Date Type Department Care Team (Late st Contact Info) Description 07/02/2023 2:36 PM EDT Anesthesia [place] [address] Natasha Solares MD Anesthesia Record Procedure Summary Procedure Name Responsible [...] RN 07/05/23 0000 by Laura Walsh RN Urethral Catheter 11/17/21; 1802; Acut e urinary retention or obstruction; inserted at this facility; 1; 10; intraurethral Xylocaine gel; leg bag to dependent drainage; Inserted by [place] resident MD Gunner Servin.; LDA not present upon assessment; 07/05/23 11/17/21 1802 by Rosalee Hummel RN 07/05/23 0000 by Laura Walsh RN PIV 07/02/23; 1345; inqg-hro-nqwzvu catheter system; 20 gauge; cephalic vein (lateral side of arm), right; Nathan Hastings; LDA not present upon assessment; 07/05/23; 1228 07/02/23 1345 by Eldon Cohen RN 07/05/23 1228 by Savannah Jamison, RN ETT Mask Ventilation: Ea sy (1); ETT Type: Cuffed, Oral; ETT Size: 7.5 mm; Mac Blade: 4; Notes: Asleep, Pre-O2, Stylette; Attempts: 1; Laryngoscopy Grade: 1; ETT Placement Verified By: Auscultation, Capnometry, Visual; Secured at Teeth: 23 cm; Inserted by: JAC Bernabe; Removal Date: 07/02/23; Removal Time: 1525 07/02/23 1449 by Fredi Bernabe CRNA 07/02/23 1525 by Fredi Bernabe CRNA documented in this encounter Social History Tobacco Use Types Packs/Day Years Used Date Smoking Tobacco: Former Cigarettes - 1992 Smokeless Tobacco: Never Alcohol Use [...] Procedure Summary Date: 07/02/23 Room / Location: [facility] ENDO 3 / [facility] ENDOSCOPY Anesthesia Start: 1436 Anesthesia Stop: 1536 Procedures: UPPER EUS- ENDOSCOPIC ULTRASOUND (WRVU 3.47) (Trunk) ERCP (WRVU 5.85) (Trunk) ERCP W/REMOVAL CALCULI/DEBRIS FROM BILARY/PANCREATIC DUCT(S) (WRVU 6.63) RADIOFREQUENCY ABLATION Diagnosis: (Bets- 1-2 weeks EUS/ERCP) (patient with pancreatic cancer s/p ercp with stent in [facility]. Persistently elevated bilirubin.) Surgeons: Pako Lopez MD Responsible Provider: Natasha Solares MD Anesthesia Type: general ASA Status: 3 All Anesthesia Providers: Anesthesiologist: Natasha Solares MD PUMPER HELPER: Fredi Bernabe CRNA Vitals Value Taken Time BP 104/60 07/02/23 1540 Temp Pulse Resp SpO2 99 % 07/02/23 1550 Pain Level 0 07/02/23 1534 Vitals shown include unfiled device data. Patient Location: PACU/[facility] Level of Consciousness: Conscious but Sleepy Pain [...] ??? Colon adenocarcinoma 2009 recieved chemo in [place] ??? Coronary artery disease ??? Coronary artery [...] 20.72) performed by Ismael Wu MD at [facility] MAIN OR ??? PRO ARTHROPLASTY ACETABULAR/PROX FEM PROSTC AGRFT/ALGRFT Right 11/17/2021 TOTAL HIP ARTHROPLASTY - POSTERIOR (WRVU 20.72) performed by Ismael Wu MD at [facility] MAIN OR ??? PRO EXPLORATION NOT FOLLOWED BY SURG NECK ARTERY Right 07/14/2021 @EXPLORATION NOT FOLLOWED BY SURGICAL REPAIR, ARTERY; NECK (CAROTID OR SUBCLAVIAN) (WRVU 9.19) performed by Basim Barr MD at [facility] MAIN OR ??? PRO LASER VAPORIZATION SURGERY PROSTATE, COMPLETE Midline 02/02/2021 CYSTO, LASER TURP (WRVU 12.15) performed by Cayetano Engle MD at [facility] MAIN OR ??? PRO PLACE TRANSCATHETER STENT, CCA W EMBOLIC PROECT Right 07/14/2021 @TRANSCATH INTRAVASCULAR STENT,CAROTID,PERC,W\EMBOLIC PROT. (WRVU 18) performed by Basim Barr MD at [facility] MAIN OR Social History Tobacco Use ??? [...] vascular procedure at [facility] in [place]: shaking Has tolerated MRI and CT contrast. [...] with patient and spouse. Plan discussed with PUMPER HELPER and attending. Anesthesia Screening documented in this encounter Plan of Treatment Upcoming Encounters Date Type Department Care Team (Late st Contact Info) Description 03/24/2024 9:00 AM EST TH Visit (TeleHealth) Radiation Oncology at [address] [phone] Ping Moore PA [facility] DR HEMAT[place] [address] 03/26/2024 9:30 AM EST Office Visit Hematology/Oncology at [address] [phone] Yessi Renee APRN [address] [place] [address] DR HEMATOLOGY AND ONCOLOGY [place], [place] [address] 03/26/2024 9:30 AM EST Infusion Hematology Oncology at [address] [phone] 04/09/2024 9:30 AM EST Office Visit Hematology/Oncology at [address] [phone] Cl Hess MD [facility] [place] [address] HEMATOLOGY AND ONCOLOGY [place], [place] [address] 04/09/2024 10:00 AM EST Infusion Hematology Oncology at [address] [phone] 04/23/2024 9:30 AM EST Office Visit Hematology/Oncology at [address] [phone] Cl Hess MD [facility] [place] [address] [address] [place] [address] 04/23/2024 10:00 AM EST Infusion Hematology Oncology at [address] [phone] 05/18/2024 4:30 PM EDT TH Visit (TeleHealth) [place] [address] Malachi Rothman MD [facility] [place] [address] documented as of this encounter Visit Diagnoses [...] 2% injection syringe Intravenous, PRN, Starting on e 07/02/23 at 1444, Until Tu07/02/23 at 1538, Anesthesia Intra-op, Routine Given 07/02/2023 2:44 PM EDT 100 mg ondansetron (pf) (Zofran) (2 mg/mL) injection Intravenous, PRN, Starting on Sat07/02/23 at 1512, Until e 07/02/23 at 1538, Anesthesia Intra-op, Routine Given 07/02/2023 3:12 PM EDT 4 mg propofoL (Diprivan) 10 mg/mL bolus injection (Anesthesia) Intravenous, PRN, Starting on e 07/02/23 at 1444, Until Sat07/02/23 at 1538, Anesthesia Intra-op Given 07/02/2023 2:44 PM EDT 200 mg succinylcholine (Anectine;Quelicin) (20 mg/mL) injection Intravenous, PRN, Starting on Sat07/02/23 at 1444, Until Sat07/02/23 at 1538, Anesthesia Intra-op, Routine Given 07/02/2023 2:44 PM EDT 100 mg documented in this encounter Care Teams Laborer Shellfish Processing Relationship Specialty Start Date End Date Alo Carey DO [address] [place] [address] [place] [phone] PCP - General Internal Medicine 08/31/20 07/03/23 documented as of this encounter
--- OUTSIDE RECORDS SUMMARY | 2024-03-12 10:54 | XMS_ITS | Encounter Summary ---
[place] [address] Care Team Providers Care Crane Ladle Person Name Role Phone Tristen Hunter MD Primary Care Provider Encounter Details Date Type Department Care Team (Latest Contact Info) Description 08/09/2023 Travel Social History Tobacco Use Types Packs/Day Years Used Date Smoking Tobacco: Former Cigarettes 4 30 1 963 - 1992 Smokeless Tobacco: Never Alcohol Use Standard Drinks/Week Comments Yes 7 (1 standard drink = 0.6 oz pur e alcohol) [facility] Utilities Answer Date Recorded In the past 12 months has [employer] electric, gas, oil, or water company threatened [...] TH Visit (TeleHealth) Radiation Oncology at [address] [phone] Ping Moore PA [facility] DR [place] [address] 03/26/2024 9:30 AM EST Office Visit Hematology/Oncology at [address] [phone] Yessi Renee APRN [address] [place] [address] [place] [address] 03/26/2024 9:30 AM EST Infusion Hematology Oncology at [address] [phone] 04/09/2024 9:30 AM EST Office Visit Hematology/Oncology at [address] [phone] Cl Hess MD [facility] [place] [address] HEMATOLOGY AND ONCOLOGY [place], [place] [phone] 04/09/2024 10:00 AM EST Infusion Hematology Oncology at [address] [phone] 04/23/2024 9:30 AM EST Office Visit Hematology/Oncology at [address] [phone] Cl Hess MD [facility] [place] [address] [address] [place] [address] 04/23/2024 10:00 AM EST Infusion Hematology Oncology at [address] [phone] 05/18/2024 4:30 PM EDT TH Visit (TeleHealth) [place] [address] Malachi Rothman MD [facility] [place] [address] documented as of this encounter Visit Diagnoses Not on filedocumented in this encounter Care Teams Crane Ladle Person Relationship Specialty Start Date End Date Tristen Hunter MD [address] [place] [address] [place] [address] PCP - General Family Medicine 07/04/23 documented as of this encounter
--- OUTSIDE RECORDS SUMMARY | 2024-03-12 10:54 | XMS_ITS | Encounter Summary ---
Author Organization [facility] [place] [address] Care Team Providers Care Technical Asst Name Role Phone Tristen Hunter MD Primary Care Provider [phone] Encounter Details Date Type Department Care Team (Late st Contact Info) Description 07/18/2023 Orders Only Hematology [place] [address] Cl Hess MD [facility] [place] [address] Malignant neoplasm of head of pancreas; Pancreatic insufficiency Social History Tobacco Use Types Packs/Day Years Used Date Smoking Tobacco: Former Cigarettes 4 30 1 3 - 1992 Smokeless Tobacco: Never Alcohol Use Standard Drinks/Week Comments Yes 7 (1 standard drink = 0.6 oz pur e alcohol) [facility] Utilities Answer Date Recorded In the past 12 months has [employer], gas, oil, or water company threatened [...] TH Visit (TeleHealth) Radiation Oncology at [address] [phone] Ping Moore PA [facility] HEMATOLOGY [place] [address] 03/26/2024 9:30 AM EST Office Visit Hematology/Oncology at [address] [phone] [address] HEMATOLOGY AND ONCOLOGY [place], [place] [address] [phone] 03/26/2024 9:30 AM EST Infusion Hematology Oncology at [address] [phone] 04/09/2024 9:30 AM EST Office Visit Hematology/Oncology at [address] [phone] lC Hess MD [facility] [place] [address] Yessi Renee [address] HEMATOLOGY AND ONCOLOGY [place], [place] [phone] 04/09/2024 10:00 AM EST Infusion Hematology Oncology at [address] [phone] 04/23/2024 9:30 AM EST Office Visit Hematology/Oncology at [address] [phone] Cl Hess MD [facility] [place] [address] [address] HEMATOLOGY AND ONCOLOGY [place], [place] [address] 04/23/2024 10:00 AM EST Infusion Hematology Oncology at [address] [phone] 05/18/2024 4:30 PM EDT TH Visit (TeleHealth) [place] [address] Malachi Rothman MD [facility] [place] [address] documented as of this encounter Visit Diagnoses Diagnosis Malignant neoplasm of head of pancreas Pancreatic insufficiency Other specified disease of pancreas documented in this encounter Care Teams Technical Asst Relationship Specialty Start Date End Date Tristen Hunter MD [address] [place] [address] [place] [address] PCP - General Family Medicine 07/04/23 documented as of this encounter
--- OUTSIDE RECORDS SUMMARY | 2024-03-12 10:54 | XMS_ITS | Encounter Summary ---
[place] [address] Care Team Providers Care Strategic Accounts Manager Name Role Phone Tristen Hunter MD Primary Care Provider [phone] Encounter Details Date Type Department Care Team (Late st Contact Info) Description 07/04/2023 Notes Only Hematology [place] [phone] Mary Sotelo, [facility] Social History Tobacco Use Types Packs/Day Years Used Date Smoking Tobacco: Former Cigarettes 4 30 1 963 - 1992 Smokeless Tobacco: Never Alcohol Use Standard Drinks/Week Comments Yes 7 (1 standard drink = 0.6 oz pur e alcohol) [facility] Utilities Answer Date Recorded In the past 12 months has [employer], gas, oil, or water company threatened to [...] of this encounter Progress Notes * Mary Sotelo [facility] - 07/04/2023 11:47 AM EDT Clinical Oncology Pharmacist Note Oncology PGx Results PATIENT ID: Wero Sadler is a 73 y.o. male with pancreatic adenocarcinoma. Pharmacist interpretation of Oncology PGx results is as follows: Interpretation: Gene Based on most recent FDA, CPIC (Clinical Pharmacogenetics Implementation Consortium), and DPWG([place] pharmacogenetics working group) guidelines: DPYD Normal metabolizer - No action necessary. NUDT15 Normal metabolizer - No action necessary. TPMT Normal metabolizer - No action necessary. UGT1A1 Poor metabolizer - Dose adjustments recommended. UGT *28/*28 and [id number] IRINOTECAN/SACITUZUMAB GOVITECAN-hziy Per FDA labeling, when administered [...] increased, guided by the neutrophil count. (PMID: [id number]) Based on FDA and DPWG guidance, if [...] questions. Mary Sotelo RPH, PharmD PGY2 Oncology [employer] July 04, 2023 documented in this encounter Plan of Treatment Upcoming Encounters Date Type Department Care Team (Late st Contact Info) Description 03/24/2024 9:00 AM EST TH Visit (TeleHealth) Radiation Oncology at [address] [phone] Ping Moore PA [facility] [place] [address] 03/26/2024 9:30 AM EST Office Visit Hematology/Oncology at [address] [phone] [address] HEMATOLOGY AND ONCOLOGY [place], [place] [phone] 03/26/2024 9:30 AM EST Infusion Hematology Oncology at [address] [phone] 04/09/2024 9:30 AM EST Office Visit Hematology/Oncology at [address] [phone] Cl Hess MD [facility] [place] [address] [address] HEMATOLOGY AND ONCOLOGY [place], [place] [phone] 04/09/2024 10:00 AM EST Infusion Hematology Oncology at [address] [phone] 04/23/2024 9:30 AM EST Office Visit Hematology/Oncology at [address] [phone] Cl Hess MD [facility] [place] [address] Yessi Renee APRN [address] [place] [address] DR HEMATOLOGY AND ONCOLOGY [place], [place] [address] 04/23/2024 10:00 AM EST Infusion Hematology Oncology at [address] [phone] 05/18/2024 4:30 PM EDT TH Visit (TeleHealth) [place] [address] Malachi Rothman MD [facility] [place] [address] documented as of this encounter Visit Diagnoses Not on filedocumented in this encounter Care Teams Strategic Accounts Manager Relationship Specialty Start Date End Date Tristen Hunter MD [address] [place] [address] [place] [address] PCP - General Family Medicine 07/04/23 documented as of this encounter
--- OUTSIDE RECORDS SUMMARY | 2024-03-12 10:54 | XMS_ITS | Encounter Summary ---
Author Organization [facility] Address [facility] [place] [address] Care Team Providers Care Enamel Pulverizer Name Role Phone Tristen Hunter MD Primary Care Provider [phone] Encounter Details Date Type Department Care Team (Late st Contact Info) Description 07/12/2023 10:00 AM EDT Office Visit Hematology/Oncology at [address] [phone] Cl Hess MD [facility] [place] [address] Yessi Renee, ARNOLD [address] [place] [address] DR HEMATOLOGY [place] [address] Malignant neoplasm of head of pancreas; Drug-induced [...] periduodenal or perilesional adenopathy was appreciated Impression: [id number] pancreas head mass lesion with biliary and [...] disease/disease progression on interim staging evaluation. . [facility] second read [...] been helpful for him. 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 While in [facility], he presented with chest pain [...] mFolfirinox. We reviewed his case at [facility] on 06/18/23. The Ct from [...] will be followed also by our clinical labeling associate, Lupe Velasquez. Plan: Begin neoadjuvant therapy with mFolfirinox. 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 RTC - 2 weeks documented in this encounter Plan of Treatment Upcoming Encounters Date Type Department Care Team (Late st Contact Info) Description 03/24/2024 9:00 AM EST TH Visit (TeleHealth) Radiation Oncology at [address] [phone] Ping Moore PA [facility] DR HEMATOLOGY [place] [address] 03/26/2024 9:30 AM EST Office Visit Hematology/Oncology at [address] [phone] Yessi Renee APRN [address] [place] [address] DR HEMATOLOGY AND ONCOLOGY [place], [place] [phone] 03/26/2024 9:30 AM EST Infusion Hematology Oncology at [address] [phone] 04/09/2024 9:30 AM EST Office Visit Hematology/Oncology at [address] [phone] Cl Hess MD [facility] [place] [address] [address] HEMATOLOGY [place] [address] 04/09/2024 10:00 AM EST Infusion Hematology Oncology at [address] [phone] 04/23/2024 9:30 AM EST Office Visit Hematology/Oncology at [address] [phone] Cl Hess MD [facility] [place] [address] [address] HEMATOLOGY [place] [address] 04/23/2024 10:00 AM EST Infusion Hematology Oncology at [address] [phone] 05/18/2024 4:30 PM EDT TH Visit (TeleHealth) [place] [address] Malachi Rothman MD [facility] DR [place] [address] documented as of this encounter Visit Diagnoses Diagnosis Malignant neoplasm of head of pancreas Drug-induced nausea and vomiting Nausea with vomiting documented in this encounter Care Teams Enamel Pulverizer Relationship Specialty Start Date End Date Tristen Hunter MD [address] [place] [address] [place] [address] PCP - General Family Medicine 07/04/23 documented as of this encounter
--- OUTSIDE RECORDS SUMMARY | 2024-03-12 10:54 | XMS_ITS | Encounter Summary ---
[place] [address] Care Team Providers Care Disintegrator Operator Name Role Phone Tristen Hunter MD Primary Care Provider [phone] Encounter Details Date Type Department Care Team (Latest Contact Info) Description 07/24/2023 Specialty [place] [phone] Slim De La Cruz, [facility] One Time Clinical Outreach - Manual (lipase/protease/nargis morse) for Enzyme Social History Tobacco Use Types Packs/Day Years Used Date Smoking Tobacco: Former Cigarettes 4 30 1 963 - 1992 Smokeless Tobacco: Never Alcohol Use Standard Drinks/Week Comments Yes 7 (1 standard drink = 0.6 oz pur e alcohol) [facility] Utilities Answer Date Recorded [...] this encounter Progress Notes * Slim De LaC ruz RPH - 07/24/2023 12:03 PM EDT Please see NS done on 07/23 for complete documentation of [place] ENGLISH. documented in this encounter Plan of Treatment Upcoming Encounters Date Type Department Care Team (Late st Contact Info) Description 03/24/2024 9:00 AM EST TH Visit (TeleHealth) Radiation Oncology at [address] [phone] Ping Moore PA [facility] HEMATOLOGY [place] [address] 03/26/2024 9:30 AM EST Office Visit Hematology/Oncology at [address] [phone] [address] HEMATOLOGY AND ONCOLOGY [place], [place] [address] 03/26/2024 9:30 AM EST Infusion Hematology Oncology at [address] [phone] 04/09/2024 9:30 AM EST Office Visit Hematology/Oncology at [address] [phone] Cl Hess MD [facility] [place] [address] [address] HEMATOLOGY AND ONCOLOGY [place], [place] [phone] 04/09/2024 10:00 AM EST Infusion Hematology Oncology at [address] [phone] 04/23/2024 9:30 AM EST Office Visit Hematology/Oncology at [address] [phone] Cl Hess MD [facility] [place] [address] [address] [place] [address] 04/23/2024 10:00 AM EST Infusion Hematology Oncology at [address] [phone] 05/18/2024 4:30 PM EDT TH Visit (TeleHealth) [place] [address] Malachi Rothman MD [facility] [place] [address] documented as of this encounter Visit Diagnoses Diagnosis Malignant neoplasm of head of pancreas documented in this encounter Care Teams Disintegrator Operator Relationship Specialty Start Date End Date Tristen Hunter MD [address] [place] [address] [place] [address] PCP - General Family Medicine 07/04/23 documented as of this encounter
--- OUTSIDE RECORDS SUMMARY | 2024-03-12 10:54 | XMS_ITS | Encounter Summary ---
[place] [address] Care Team Providers Care Sweat Band Separator Name Role Phone Tristen Hunter MD Primary Care Provider [phone] Reason for Visit * Reason Comments Medication Management Patient Education Encounter Details Date Type Department Care Team (Late st Contact Info) Description 07/18/2023 Specialty [place] [phone] Slim De La Cruz, [facility] Social History Tobacco Use Types Packs/Day Years Used Date Smoking Tobacco: Former Cigarettes 4 30 1 963 - 1993 Smokeless Tobacco: Never Alcohol Use Standard Drinks/Week Comments Yes 7 (1 standard drink = 0.6 oz pur e alcohol) [facility] Utilities Answer Date Recorded [...] the Clinical Assessment? No Summary and Recommendations: Weroyancy Sadler was contacted in regards to a [...] Appropriate Therapy: Yes Current Medication Dosing/Route/Frequency: CREON 46985 units: Take two capsules by mouth with [...] TH Visit (TeleHealth) Radiation Oncology at [address] [phone] Ping Moore PA [facility] DR [place] [address] 03/26/2024 9:30 AM EST Office Visit Hematology/Oncology at [address] [phone] Yessi Renee [address] HEMATOLOGY AND ONCOLOGY [place], [place] [phone] 03/26/2024 9:30 AM EST Infusion Hematology Oncology at [address] [phone] 04/09/2024 9:30 AM EST Office Visit Hematology/Oncology at [address] [phone] Cl Hess MD [facility] [place] [address] Yess[address] Renee [address] HEMATOLOGY AND ONCOLOGY [place], [place] [address] 04/09/2024 10:00 AM EST Infusion Hematology Oncology at [address] [phone] 04/23/2024 9:30 AM EST Office Visit Hematology/Oncology at [address] [phone] Cl Hess MD [facility] [place] [address] Yessi Renee APRN [address] [place] [address] DR HEMATOLOGY AND ONCOLOGY [place], [place] [address] 04/23/2024 10:00 AM EST Infusion Hematology Oncology at [address] [phone] 05/18/2024 4:30 PM EDT TH Visit (TeleHealth) [place] [address] Malachi Rothman MD [facility] [place] [address] documented as of this encounter Visit Diagnoses Not on filedocumented in this encounter Care Teams Sweat Band Separator Relationship Specialty Start Date End Date Tristen Hunter MD [address] [place] [address] [place] [address] PCP - General Family Medicine 07/04/23 documented as of this encounter
--- OUTSIDE RECORDS SUMMARY | 2024-03-12 10:54 | XMS_ITS | Encounter Summary ---
Author Organization [facility] Address [facility] [place] [address] Care Team Providers Care Human Resources District Manager Name Role Phone Tristen Hunter MD Primary Care Provider [phone] Reason for Visit * Reason Comments Chemotherapy Cycle 3, Day 1 - Fol firinox * Treatment/Therapy Plan Authorization (Routine) - Authorized Specialty Diagnoses / Procedures Referred By Marques livingston Referred To Contact Diagnoses Malignant neoplasm of prostate Cl Hess MD [facility] [place] [address] Stj Hem Onc Infusion [address] [place] [phone] Referral ID Status Reason Start Date Expiration Date V isits Requested Visits Authorized [id number] Authorized 07/11/2023 07/10/2024 99 99 Encounter Details Date Type Department Care Team (Late st Contact Info) Description 08/09/2023 9:00 AM EDT Infusion Hematology Oncology at [address] [phone] Malignant neoplasm of prostate; Malignant neoplasm of head of pancreas Social History Tobacco Use Types Packs/Day Years Used Date Smoking Tobacco: Former Cigarettes 1992 Smokeless Tobacco: Never Alcohol Use Standard Drinks/Week Comments Yes 7 (1 standard drink = 0.6 oz pur e alcohol) [facility] Utilities Answer Date Recorded In the past [...] patient's height, weight and BSA by Michela Enciso RN and Staff Pharmacist(s). REACTIONS (DESCRIPTION, TIME, INTERVENTION AND EFFECTIVENESS) none ASSESSMENT: CADD pump provided by [employer], pump was double checked by Michela Enciso RN RN and Koko Funk RN prior to connection. Pump was checked 15min after connection and 0.9 cc was infused. Patient was awake, alert and tolerated treatment well. Disconnect at [facility] at 1200 on Saturday08/11/23. [...] TH Visit (TeleHealth) Radiation Oncology at [address] [phone] Ping Moore PA [facility] HEMATOLOGY [place] [address] 03/26/2024 9:30 AM EST Office Visit Hematology/Oncology at [address] [phone] Yessi Renee, [address] HEMATOLOGY [place]COLOGY [place], [place] [address] [phone] 03/26/2024 9:30 AM EST Infusion Hematology Oncology at [address] [phone] 04/09/2024 9:30 AM EST Office Visit Hematology/Oncology at [address] [phone] Cl Hess MD [facility] [place] [address] [address] HEMATOLOGY AND ONCOLOGY [place], [place] [phone] 04/09/2024 10:00 AM EST Infusion Hematology Oncology at [address] [phone] 04/23/2024 9:30 AM EST Office Visit Hematology/Oncology at [address] [phone] Cl Hess MD [facility] [place] [address] [address] HEMATOLOGY AND ONCOLOGY [place], [place] [address] 04/23/2024 10:00 AM EST Infusion Hematology Oncology at [address] [phone] 05/18/2024 4:30 PM EDT TH Visit (TeleHealth) [place] [address] Malachi Rothman MD [facility] [place] [address] documented as of this encounter Visit Diagnoses [...] 2 minutes is a recommendation from the compounder. Administer prior to chemotherapy., Routine Given 08/09/2023 [...] mg documented in this encounter Care Teams Human Resources District Manager Relationship Specialty Start Date End Date Tristen Hunter MD [address] [place] [address] [place] [address] PCP - General Family Medicine 07/04/23 documented as of this encounter
--- OUTSIDE RECORDS SUMMARY | 2024-03-12 10:54 | XMS_ITS | Encounter Summary ---
Author Organization [facility] Address [facility] [place] [address] Care Team Providers Care Project Lead Name Role Phone Tristen Hunter MD Primary Care Provider [phone] Reason for Visit * Reason Comments Chemotherapy Cycle 1 Day 1 FOLFIR INOX * Treatment/Therapy Plan Authorization (Routine) - Authorized Specialty Diagnoses / Procedures Referred By Contac t Referred To Contact Diagnoses Malignant neoplasm of prostate Cl Hess MD [facility] [place] [address] Stj Hem Onc Infusion [address] [place] [phone] Referral ID Status Reason Start Date Expiration Date V isits Requested Visits Authorized [id number] Authorized 07/11/2023 07/10/2024 99 99 Encounter Details Date Type Department Care Team (Late st Contact Info) Description 07/12/2023 10:30 AM EDT Infusion Hematology Oncology at [address] [phone] Malignant neoplasm of prostate Social History Tobacco Use Types Packs/Day Years Used Date Smoking Tobacco: Former Cigarettes 1992 Smokeless Tobacco: Never Alcohol Use Standard Drinks/Week Comments Yes 7 (1 standard drink = 0.6 oz pur e alcohol) [facility] Utilities Answer Date Recorded In the [...] of this encounter Progress Notes * Mary iJménez RN - 07/12/2023 10:30 AM EDT Images from the original note were not included. [facility] Infusion [facility] Genetics lab kit draw #[id number] Provider: Dr. Hess Test Requisition form competed if necessary (done electronically for genetics). Informational papergiven to patient, signed if needed, and patient agreed to lab draw. [facility] lab kit blood drawn from: [ ] [...] and BSA by Mary Jiménez, [facility] onsite. REACTIONS (DESCRIPTION, TIME, INTERVENTION AND EFFECTIVENESS) [...] mL had infused. Anticipated date/time of disconnect: [facility] 07/14/23 @ 1345 Plan for disconnect: [facility] Disconnect contact number: [phone] Pt. chemo teaching instructions included: During clinic hours (8am-5pm Saturday-Saturday): pt. can call [phone] with questions or concerns. After clinic hours (5pm-8am Saturday-Saturday and weekends) pt can call [phone] and ask for the tamping machine operator/oncologist data operations leader. Wero Sadler verbalized understanding of potential chemotherapy side effects [...] TH Visit (TeleHealth) Radiation Oncology at [address] [phone] Ping Moore PA [facility] DR [place] [address] 03/26/2024 9:30 AM EST Office Visit Hematology/Oncology at [address] [phone] Yessi Renee, [address] HEMATOLOGY AND ONCOLOGY [place], [place] [phone] 03/26/2024 9:30 AM EST Infusion Hematology Oncology at [address] [phone] 04/09/2024 9:30 AM EST Office Visit Hematology/Oncology at [address] [phone] Cl Hess MD [facility] [place] [address] Yess[address] Renee [address] HEMATOLOGY AND ONCOLOGY [place], [place] [address] 04/09/2024 10:00 AM EST Infusion Hematology Oncology at [address] [phone] 04/23/2024 9:30 AM EST Office Visit Hematology/Oncology at [address] [phone] Cl Hess MD [facility] [place] [address] Yessi Renee APRN [address] [place] [address] DR HEMATOLOGY AND ONCOLOGY [place], [place] [address] 04/23/2024 10:00 AM EST Infusion Hematology Oncology at [address] [phone] 05/18/2024 4:30 PM EDT TH Visit (TeleHealth) [place] [address] Malachi Rothman MD [facility] [place] [address] documented as of this encounter Visit Diagnoses [...] 2 minutes is a recommendation from the backup administrator. Administer prior to chemotherapy., Routine Given 07/12/2023 [...] mg documented in this encounter Care Teams Project Lead Relationship Specialty Start Date End Date Tristen Hunter MD [address] [place] [address] [place] [address] PCP - General Family Medicine 07/04/23 documented as of this encounter
--- OUTSIDE RECORDS SUMMARY | 2024-03-12 10:54 | XMS_ITS | Encounter Summary ---
Author Organization [facility] [place] [address] Care Team Providers Care Building Construction Engineer Name Role Phone Tristen Hunter MD Primary Care Provider [phone] Encounter Details Date Type Department Care Team (Late st Contact Info) Description 07/11/2023 Orders Only Hematology [place] [address] Cl Hess MD [facility] DR ONCOLOGY [place] [phone] Social History Tobacco Use Types Packs/Day Years [...] TH Visit (TeleHealth) Radiation Oncology at [address] [phone] Ping Moore PA [facility] HEMATOLOGY [place] [address] 03/26/2024 9:30 AM EST Office Visit Hematology/Oncology at [address] [phone] HEMATOLOGY [place] [address] 03/26/2024 9:30 AM EST Infusion Hematology Oncology at [address] [phone] 04/09/2024 9:30 AM EST Office Visit Hematology/Oncology at [address] [phone] Cl Hess MD [facility] [place] [address] HEMATOLOGY AND ONCOLOGY [place], [place] [address] 04/09/2024 10:00 AM EST Infusion Hematology Oncology at [address] [phone] 04/23/2024 9:30 AM EST Office Visit Hematology/Oncology at [address] [phone] Cl Hess MD [facility] [place] [address] [address] HEMATOLOGY [place] [address] 04/23/2024 10:00 AM EST Infusion Hematology Oncology at [address] [phone] 05/18/2024 4:30 PM EDT TH Visit (TeleHealth) [place] [address] Malachi Rothman MD [facility] [place] [address] documented as of this encounter Visit Diagnoses Not on filedocumented in this encounter Care Teams Building Construction Engineer Relationship Specialty Start Date End Date Tristen Hunter MD [address] [place] [address] [place] [address] PCP - General Family Medicine 07/04/23 documented as of this encounter
--- OUTSIDE RECORDS SUMMARY | 2024-03-12 10:54 | XMS_ITS | Encounter Summary ---
Author Organization [facility] Address [facility] [place] [address] Care Team Providers Care Director Group Sales Name Role Phone Tristen Hunter MD Primary Care Provider [phone] Encounter Details Date Type Department Care Team (Late st Contact Info) Description 07/26/2023 8:00 AM EDT Office Visit Hematology/Oncology at [address] [phone] Cl Hess MD [facility] [place] [address] Yessi Renee, [place] [address] [place] [address] DR [place] [address] Malignant neoplasm of head of pancreas Social History Tobacco Use Types Packs/Day Years Used Date Smoking Tobacco: Former Cigarettes 4 30 1 963 - 1992 Smokeless Tobacco: Never Alcohol Use Standard Drinks/Week Comments Yes 7 (1 standard drink = 0.6 oz pur e alcohol) [facility] Utilities Answer Date Recorded In [...] periduodenal or perilesional adenopathy was appreciated Impression: [id number] pancreas head mass lesion with biliary and [...] disease/disease progression on interim staging evaluation. [facility] [place] second read of CT c/a/p from 05/22/23 [...] with the first cycle. 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 While in [facility], he presented with chest pain and SOB [...] 06/07/23. Pathology was requested for review at [facility] [place] and we also requested that images be [...] in the absence of cold, hypersensitivity reactions, angina/[place] and others. He was given an informational handout regarding mFolfirinox. We reviewed his case at [facility] on 06/18/23. The Ct from 05/22/23 was [...] plan was for a blood draw in [facility] once he starts his infusions. If genetic testing showed a BRCA or PALB2 mutation, he may be eligible for a clinical trial looking at theuse olaparib following completion of chemotherapy and surgery to see if this improves RFS. He will be followed also by our clinical investor, Lupe Velasquez. On 07/12/23 he began neoadjuvant [...] TH Visit (TeleHealth) Radiation Oncology at [address] [phone] Ping Moore PA [facility] [place] [address] 03/26/2024 9:30 AM EST Office Visit Hematology/Oncology at [address] [phone] [address] HEMATOLOGY AND ONCOLOGY [place], [place] [address] 03/26/2024 9:30 AM EST Infusion Hematology Oncology at [address] [phone] 04/09/2024 9:30 AM EST Office Visit Hematology/Oncology at [address] [phone] Cl Hess MD [facility] [place] [address] [address] HEMATOLOGY AND ONCOLOGY [place], [place] [address] 04/09/2024 10:00 AM EST Infusion Hematology Oncology at [address] [phone] 04/23/2024 9:30 AM EST Office Visit Hematology/Oncology at [address] [phone] Cl Hess MD [facility] [place] [address] [address] [place] [address] 04/23/2024 10:00 AM EST Infusion Hematology Oncology at [address] [phone] 05/18/2024 4:30 PM EDT TH Visit (TeleHealth) [place] [address] Malachi Rothman MD [facility] [place] [address] documented as of this encounter Visit Diagnoses Diagnosis Malignant neoplasm of head of pancreas documented in this encounter Care Teams Director Group Sales Relationship Specialty Start Date End Date Tristen Hunter MD [address] [place] [address] [place] [address] PCP - General Family Medicine 07/04/23 documented as of this encounter
--- OUTSIDE RECORDS SUMMARY | 2024-03-12 10:54 | XMS_ITS | Encounter Summary ---
Author Organization [facility] Address [facility] [place] [address] Care Team Providers Care Clay Shop Supervisor Name Role Phone Tristen Hunter MD Primary Care Provider [phone] Encounter Details Date Type Department Care Team (Late st Contact Info) Description 07/05/2023 1:30 PM EDT - 07/05/2023 3:15 PM EDT Surgery [place] [phone] Charu Balbuena MD [facility] [place] [address] LAPAROSCOPY, DIAGNOSTIC, ABDOMEN (WRVU 5.14) Social History Tobacco Use Types Packs/Day Years Used Date Smoking Tobacco: Former Cigarettes 4 30 1992 Smokeless Tobacco: Never Alcohol Use Standard Drinks/Week Comments Yes 7 (1 standard drink = 0.6 oz pur e alcohol) [place] Utilities Answer Date Recorded In the past 12 months has [employer], gas, oil, or water company threatened to [...] closest emergency room or call the hospital acetylene torch operator at [phone] and ask for physician research and evaluation manager covering for your physician. Questions or problems after 5pm or on a weekend: Call the [facility] acetylene torch operator at and ask for the physician research and evaluation manager covering for your doctor. * Patient Instructions* [...] please call the surgery clinic nurses at [phone]. If you have any concerns at night or when the clinic is closed then please call the main [facility] number and ask to speak with the general surgery resident research and evaluation manager. That number is [phone]. Dr. Balbuena will see you back after [...] 20 mg by mouth daily. 05/20/2023 omega 2-str-byy-fish oil 250-350-1,000 mg Capsule Take 1,000 mg [...] Maximum 16 mg in 24 hours 10/30/2023 ehwgmk-rbafbslz-vkxs ase (Creon 24) 24,000-76,000 -120,000 unit capsuleIndications:M [...] MD - 07/05/2023 2:26 PM EDT [facility] Operative Note Patient Name: Wero Sadler : [id number] MR#: [id number] Case Date: 07/05/2023 Surgeon: Surgeon(s) and Role: [...] liver. No biopsies were performed. An 8 Bengali Mediport PowerPort was placed successfully via the [...] TH Visit (TeleHealth) Radiation Oncology at [address] [phone] Ping Moore PA [facility] DR [place] [address] 03/26/2024 9:30 AM EST Office Visit Hematology/Oncology at [address] [phone] Yessi Renee, [address] HEMATOLOGY AND ONCOLOGY [place], [place] [address] 03/26/2024 9:30 AM EST Infusion Hematology Oncology at [address] [phone] 04/09/2024 9:30 AM EST Office Visit Hematology/Oncology at [address] [phone] Cl Hess MD [facility] [place] [address] [address] HEMATOLOGY AND ONCOLOGY [place], [place] [phone] 04/09/2024 10:00 AM EST Infusion Hematology Oncology at [address] [phone] 04/23/2024 9:30 AM EST Office Visit Hematology/Oncology at [address] [phone] Cl Hess MD [facility] [place] [address] Yessi Renee [address] HEMATOLOGY AND ONCOLOGY [place], [place] [address] 04/23/2024 10:00 AM EST Infusion Hematology Oncology at [address] [phone] 05/18/2024 4:30 PM EDT TH Visit (TeleHealth) Radiation Oncology at [facility] [place] [address] Malachi Rothman MD [facility] [place] [address] documented as of this encounter Procedures Procedure Name Priority Date/Time Associated Diagnosis Comments XR CHEST ONE VIEW Routine 07/05/2023 4:1 1 PM EDT XR FLUORO NO RAD <1HR - OR USE Routine 07/05/2023 2:50 PM EDT Fluoroscopy Exam [facility] (20089) Yes 07/05/2023 1:44 PM EDT [facility] Insert Tunneled CV Cath w SubQ Port, Age 5 Yrs or Older (45651) Yes 07/05/2023 1:44 PM EDT [facility] Lap, Diagnostic Abdomen (20953) Yes 07/05/2023 1:44 PM EDT [facility] POCT GLUCOSE Routine 07/05/2023 12:32 PM EDT documented in this encounter Results * XR Chest One View (07/05/2023 4:11 PM EDT) [employer]ful WORKSTATION ID [id number] RAD Anatomical Region Laterality Modality Chest N/A Digital Radiogra phy Impressions 07/06/2023 7:33 AM EDT No pneumothorax. Thank you for letting us participate in the care of this patient. ??If you are a health care provider and have any questions regarding this report, please contact the number below. ??For patients who have questions please contact the health transition of care specialist that requested your imaging first. ? Narrative 07/06/2023 7:33 AM EDT EXAMINATION: XR [...] patients who have questions please contactthe health transition of care specialist that requested your imaging first. Charu Balbuena MD IMG DX ORDERABLES * [...] CARE TEST ORDERABLES [facility] [place] [address] documented in this encounter Visit Diagnoses Not [...] NS.) documented in this encounter Care Teams Clay Shop Supervisor Relationship Specialty Start Date End Date Tristen Hunter MD [address] [place] [address] PCP - General Family Medicine 07/04/23 documented as of this encounter
--- OUTSIDE RECORDS SUMMARY | 2024-03-12 10:54 | XMS_ITS | Encounter Summary ---
Author Organization [facility] Address [facility] [place] [address] Care Team Providers Care Electronic Specialist Name Role Phone Tristen Hunter MD Primary Care Provider [phone] Reason for Visit * Reason Comments Chemotherapy * Treatment/Therapy Plan Authorization (Routine) - Authorized Specialty Diagnoses / Procedures Referred By Contac t Referred To Contact Diagnoses Malignant neoplasm of prostate Cl Hess MD [facility] [place] [address] Stj Hem Onc Infusion [address] [place] [phone] Referral ID Status Reason Start Date Expiration Date V isits Requested Visits Authorized [id number] Authorized 07/11/2023 07/10/2024 99 99 Encounter Details Date Type Department Care Team (Late st Contact Info) Description 07/26/2023 8:30 AM EDT Infusion Hematology Oncology at [address] [phone] Malignant neoplasm of prostate Social [...] as of this encounter Progress Notes * Neva, Tammy M, RN - 07/26/2023 8:30 AM EDT INFUSION THERAPY ADMINISTRATION NOTES DIAGNOSIS: Pacreatic CYCLE #: C2D1 REASON FOR VISIT: mFOLFIRINOX infusion and initiation of continuous home 5FU infusion via CADD pumpprovided by [employer] SUBJECTIVE Wero met with Dr. Hess prior to infusion. [...] patient's height, weight and BSA by Tammy Hooks RN and staff pharmacists. At time of administration [...] tolerated treatment well. PLAN Pump disconnect at [facility]. documented in this encounter Plan of Treatment Upcoming Encounters Date Type Department Care Team (Late st Contact Info) Description 03/24/2024 9:00 AM EST TH Visit (TeleHealth) Radiation Oncology at [address] [phone] Ping Moore PA [facility] HEMATOLOGY AND ONCOLOGY [place] [address] 03/26/2024 9:30 AM EST Office Visit Hematology/Oncology at [address] [phone] [address] HEMATOLOGY [place] [address] 03/26/2024 9:30 AM EST Infusion Hematology Oncology at [address] [phone] 04/09/2024 9:30 AM EST Office Visit Hematology/Oncology at [address] [phone] Cl Hess MD [facility] [address] [address] HEMATOLOGY AND ONCOLOGY [place], [place] [address] [phone] 04/09/2024 10:00 AM EST Infusion Hematology Oncology at [address] [phone] 04/23/2024 9:30 AM EST Office Visit Hematology/Oncology at [address] [phone] Cl Hess MD [facility] [place] [address] [address] HEMATOLOGY AND ONCOLOGY [place], [place] [address] 04/23/2024 10:00 AM EST Infusion Hematology Oncology at [address] [phone] 05/18/2024 4:30 PM EDT TH Visit (TeleHealth) [place] [address] Malachi Rothman MD [facility] [place] [address] documented as of this encounter Procedures Procedure [...] CARE TEST O DANIEL Performing Organization Address [facility] Co de Phone Number [facility] [place] [address] * (ABNORMAL) POCT Glucose (07/26/2023 8:18 AM EDT) Glucose, POC 343(H) 65 - 199 mg/dL [facility] Comment: Supplemental ranges: <140 mg/dL before meals <180 mg/dL all other times of the day Blood 07/26/2023 8:18 AM EDT 07/26/2023 8:[address] Haresh Tyson MD POINT OF CARE TEST O DANIEL Performing Organization Address [facility] Co de Phone Number [facility] [place] [address] documented in this encounter Visit Diagnoses Diagnosis [...] 2 minutes is a recommendation from the personnel administrator. Administer prior to chemotherapy., Routine Given 07/26/2023 [...] mL/hr documented in this encounter Care Teams Electronic Specialist Relationship Specialty Start Date End Date Tristen Hunter MD [address] [place] [address] [place] [address] PCP - General Family Medicine 07/04/23 documented as of this encounter
--- OUTSIDE RECORDS SUMMARY | 2024-03-12 10:54 | XMS_ITS | Encounter Summary ---
Author Organization [facility] [place] [address] Care Team Providers Care Industrial Automation Engineer Name Role Phone Tristen Hunter MD Primary Care Provider [phone] Encounter Details Date Type Department Care Team (Late st Contact Info) Description 07/24/2023 Orders Only Hematology [place] [address] Cl Hess MD [facility] [place] [address] Malignant neoplasm of head of pancreas; Pancreatic insufficiency Social History Tobacco Use Types Packs/Day Years Used Date Smoking Tobacco: Former Cigarettes 4 30 1 3 - 1992 Smokeless Tobacco: Never Alcohol Use Standard Drinks/Week Comments Yes 7 (1 standard drink = 0.6 oz pur e alcohol) [facility] Utilities Answer Date Recorded In the past 12 months has [employer] electric, gas, oil, or water company threatened [...] TH Visit (TeleHealth) Radiation Oncology at [address] [phone] Ping Moore PA [facility] HEMATOLOGY [place] [address] 03/26/2024 9:30 AM EST Office Visit Hematology/Oncology at [address] [phone] [address] HEMATOLOGY AND ONCOLOGY [place], [place] [address] [phone] 03/26/2024 9:30 AM EST Infusion Hematology Oncology at [address] [phone] 04/09/2024 9:30 AM EST Office Visit Hematology/Oncology at [address] [phone] Cl Hess MD [facility] [place] [address] Yessi Renee [address] HEMATOLOGY AND ONCOLOGY [place], [place] [phone] 04/09/2024 10:00 AM EST Infusion Hematology Oncology at [address] [phone] 04/23/2024 9:30 AM EST Office Visit Hematology/Oncology at [address] [phone] Cl Hess MD [facility] [place] [address] [address] HEMATOLOGY AND ONCOLOGY [place], [place] [address] 04/23/2024 10:00 AM EST Infusion Hematology Oncology at [address] [phone] 05/18/2024 4:30 PM EDT TH Visit (TeleHealth) [place] [address] Malachi Rothman MD [facility] [place] [address] documented as of this encounter Visit Diagnoses Diagnosis Malignant neoplasm of head of pancreas Pancreatic insufficiency Other specified disease of pancreas documented in this encounter Care Teams Industrial Automation Engineer Relationship Specialty Start Date End Date Tristen Hunter MD [address] [place] [address] [place] [address] PCP - General Family Medicine 07/04/23 documented as of this encounter
--- OUTSIDE RECORDS SUMMARY | 2024-03-12 10:55 | XMS_ITS | Encounter Summary ---
[place] [address] Care Team Providers Care Manager Clinical Applications Name Role Phone YungAlo santiago Primary Care Provider [phone] Encounter Details Date Type Department Care Team (Late st Contact Info) Description 06/28/2023 Telephone [place] [address] Marga Thorpe Social History Tobacco [...] in a fci (including now)? No 06/04/2023 Sex and Gender Information Value Date Recorded Sex Assigned at Not on file Gender Identity Not on file Sexual Orientation Not on file documented as of this encounter Miscellaneous Notes * Telephone Encounter - Marga Thorpe - 06/28/2023 1:06 PM EDT Wero Sadler [id number] Diagnosis/Indication: Bets- 1-2 weeks EUS/ERCP patient with pancreatic cancer s/p ercp with stent in [facility]. Persistently elevated bilirubin. Please review patient chart [...] your procedure. Who will likely be your cdl team truck driver for the procedure? *Please Verify [...] TH Visit (TeleHealth) Radiation Oncology at [address] [phone] Ping Moore PA [facility] DR HEMATOLOGY [place] [address] 03/26/2024 9:30 AM EST Office Visit Hematology/Oncology at [address] [phone] Yessi Renee [address] HEMATOLOGY AND ONCOLOGY [place], [place] [address] 03/26/2024 9:30 AM EST Infusion Hematology Oncology at [address] [phone] 04/09/2024 9:30 AM EST Office Visit Hematology/Oncology at [address] [phone] Cl Hess MD [facility] [place] [address] [address] HEMATOLOGY [place] [address] 04/09/2024 10:00 AM EST Infusion Hematology Oncology at [address] [phone] 04/23/2024 9:30 AM EST Office Visit Hematology/Oncology at [address] [phone] Cl Hess MD [facility] [place] [address] [address] HEMATOLOGY [place] [address] 04/23/2024 10:00 AM EST Infusion Hematology Oncology at [address] [phone] 05/18/2024 4:30 PM EDT TH Visit (TeleHealth) [place] [address] Malachi Rothman MD [facility] [place] [address] documented as of this encounter Visit Diagnoses Not on filedocumented in this encounter Care Teams Manager Clinical Applications Relationship Specialty Start Date End Date Alo Carey DO [address] [place] [address] [place] [phone] PCP - General Internal Medicine 08/31/20 07/03/23 documented as of this encounter
--- OUTSIDE RECORDS SUMMARY | 2024-03-12 10:55 | XMS_ITS | Encounter Summary ---
[place] [address] Care Team Providers Care Sales And Marketing Intern Name Role Phone Alo Carey Primary Care Provider [phone] Encounter Details Date Type Department Care Team (Latest Contact Info) Description 06/11/2023 Travel Social History Tobacco Use Types Packs/Day Years Used Date Smoking Tobacco: Former Cigarettes 4 30 1 963 - 1992 Smokeless Tobacco: Never Alcohol Use Standard Drinks/Week Comments Yes 7 (1 standard drink = 0.6 oz pur e alcohol) [facility] Utilities Answer Date Recorded In the past 12 months has [employer] electric, gas, oil, or water company [...] TH Visit (TeleHealth) Radiation Oncology at [address] [phone] Ping Moore PA [facility] DR HEMATOLOGY [place] [address] 03/26/2024 9:30 AM EST Office Visit Hematology/Oncology at [address] [phone] Yessi Renee APRN [address] [place] [address] HEMATOLOGY AND ONCOLOGY [place], [place] [phone] 03/26/2024 9:30 AM EST Infusion Hematology Oncology at [address] [phone] 04/09/2024 9:30 AM EST Office Visit Hematology/Oncology at [address] [phone] Cl Hess MD [facility] [place] [address] [address] [place] [address] 04/09/2024 10:00 AM EST Infusion Hematology Oncology at [address] [phone] 04/23/2024 9:30 AM EST Office Visit Hematology/Oncology at [address] [phone] Cl Hess MD [facility] [place] [address] [address] [place] [address] 04/23/2024 10:00 AM EST Infusion Hematology Oncology at [address] [phone] 05/18/2024 4:30 PM EDT TH Visit (TeleHealth) [place] [address] Malachi Rothman MD [facility] DR [place] [address] documented as of this encounter Visit Diagnoses Not on filedocumented in this encounter Care Teams Sales And Marketing Intern Relationship Specialty Start Date End Date Alo Carey DO [address] [place] [address] [place] [address] PCP - General Internal Medicine 08/31/20 07/03/23 documented as of this encounter
--- OUTSIDE RECORDS SUMMARY | 2024-03-12 10:55 | XMS_ITS | Encounter Summary ---
[place] [address] Care Team Providers Care Section Housekeeper Name Role Phone Alo Carey Primary Care Provider [phone] Encounter Details Date Type Department Care Team (Latest Contact Info) Description 06/25/2023 Travel Social History Tobacco Use Types Packs/Day Years Used Date Smoking Tobacco: Former Cigarettes 4 30 1 963 - 1992 Smokeless Tobacco: Never Alcohol Use Standard Drinks/Week Comments Yes 7 (1 standard drink = 0.6 oz pur e alcohol) [facility] Utilities Answer Date Recorded In the past 12 months has [employer] electric, gas, oil, or water company threatened [...] TH Visit (TeleHealth) Radiation Oncology at [address] [phone] Ping Moore PA [facility] DR [place] [address] 03/26/2024 9:30 AM EST Office Visit Hematology/Oncology at [address] [phone] Yessi Renee APRN [address] [place] [address] HEMATOLOGY AND ONCOLOGY [place], [place] [phone] 03/26/2024 9:30 AM EST Infusion Hematology Oncology at [address] [phone] 04/09/2024 9:30 AM EST Office Visit Hematology/Oncology at [address] [phone] Cl Hess MD [facility] [place] [place] [address] [address] [place] [address] 04/09/2024 10:00 AM EST Infusion Hematology Oncology at [address] [address] 04/23/2024 9:30 AM EST Office Visit Hematology/Oncology at [address] [phone] Cl Hess MD [facility] [place] [address] [address] [place] [address] 04/23/2024 10:00 AM EST Infusion Hematology Oncology at [address] [phone] 05/18/2024 4:30 PM EDT TH Visit (TeleHealth) [place] [address] Malachi Rothman MD [facility] [place] [address] documented as of this encounter Visit Diagnoses Not on filedocumented in this encounter Care Teams Section Housekeeper Relationship Specialty Start Date End Date Alo Carey DO [address] [place] [address] [place] [address] PCP - General Internal Medicine 08/31/20 07/03/23 documented as of this encounter
--- OUTSIDE RECORDS SUMMARY | 2024-03-12 10:55 | XMS_ITS | Encounter Summary ---
[place] [address] Care Team Providers Care Chipper Feeder Name Role Phone YungAlo santiago Primary Care Provider [phone] Reason for Visit * Reason Onset Date Comments Other 06/11/2023 outreach Encounter Details Date Type Department Care Team (Late st Contact Info) Description 06/11/2023 Telephone Hematology/Oncology at [address] [phone] Kaelyn Huitron, [employer] OFFICE OF CARE MANAGEMENT Other (outreach) Social History Tobacco Use Types Packs/Day Years Used Date Smoking Tobacco: Former Cigarettes 4 30 1 3 - 1992 Smokeless Tobacco: Never Alcohol Use Standard Drinks/Week Comments Yes 7 (1 standard drink = 0.6 oz pur e alcohol) [facility] Utilities Answer Date Recorded In the past 12 months has [employer] electric, gas, oil, or water company threatened [...] in a assisted (including now)? No 06/04/2023 Sex and Gender Information Value Date Recorded Sex Assigned at Not on file Gender Identity Not on file Sexual Orientation Not on file documented as of this encounter Miscellaneous Notes * Telephone Encounter - Kaelyn Huitron, MAXI - 06/11/2023 8:55 AM EDT Informed by Leah Gibson, [facility] that Wero scored needs on his SDOH screen. Asked to contact him to discuss. Reason for Referral: Brief assessment of social and emotional needs. TC with Wero today to introduce myself and role of social work msw to assess/address barriers to getting to and [...] primary supports. He has a daughter in [facility] who he has no contact with. He has 2 step childrenin [place]. Living Situation/Daily Activities/Transportation: Phip informed [employer] C[employer]TER he is blind. He lives alone in [...] is concernedabout the cost of Creon and HOOP CUTTER asked Lupe Velasquez RD to reach out [...] He is reaching out to the [facility]. HOOP CUTTER asked RD to reach out to Wero. Referrals:Wero indicate it is unclear the plan for treatment at this time as his provider is waiting for some additional test results. Will reassess his needs once his treatment plan is clarified. Social Work Interventions: Brief assessment Supportive Counseling Advance care planning Community Resource Plan: Informed pt of [employer] availability and contact information. Will follow to assess/address psychosocial needs. MAXI Arteaga, COMP FIELD CASE MANAGER, OSW-C Learning And Development Administrator [facility] documented in this encounter Plan of Treatment Upcoming Encounters Date Type Department Care Team (Late st Contact Info) Description 03/24/2024 9:00 AM EST TH Visit (TeleHealth) Radiation Oncology at [address] [phone] Ping Moore PA [facility] DR HEMATOLOGY [place] [address] 03/26/2024 9:30 AM EST Office Visit Hematology/Oncology at [address] [phone] [address] HEMATOLOGY AND ONCOLOGY [place], [place] [address] 03/26/2024 9:30 AM EST Infusion Hematology Oncology at [address] [phone] 04/09/2024 9:30 AM EST Office Visit Hematology/Oncology at [address] [phone] Cl Hess MD [facility] [place] [place] [address] [address] HEMATOLOGY [place] [address] 04/09/2024 10:00 AM EST Infusion Hematology Oncology at [address] [phone] 04/23/2024 9:30 AM EST Office Visit Hematology/Oncology at [address] [phone] Cl Hess MD [facility] [place] [address] [address] HEMATOLOGY [place] [address] 04/23/2024 10:00 AM EST Infusion Hematology Oncology at [address] [phone] 05/18/2024 4:30 PM EDT TH Visit (TeleHealth) [place] [address] Malachi Rothman MD [facility] [place] [address] documented as of this encounter Visit Diagnoses Not on filedocumented in this encounter Care Teams Chipper Feeder Relationship Specialty Start Date End Date Alo Carey DO [address] [place] [address] [place] [phone] PCP - General Internal Medicine 08/31/20 07/03/23 documented as of this encounter
--- OUTSIDE RECORDS SUMMARY | 2024-03-12 10:55 | XMS_ITS | Encounter Summary ---
Author Organization [facility] [place] [address] Care Team Providers Care Transcription Specialist Name Role Phone Alo Carey DO Primary Care Provider [phone] Encounter Details Date Type Department Care Team (Late st Contact Info) Description 06/27/2023 External [place] [phone] Provider, Scanning Social History Tobacco Use Types [...] in a prison (including now)? No 06/04/2023 Sex and Gender Information Value Date Recorded Sex Assigned at Not on file Gender Identity Not on file Sexual Orientation Not on file documented as of this encounter Plan of Treatment Upcoming Encounters Date Type Department Care Team (Late st Contact Info) Description 03/24/2024 9:00 AM EST TH Visit (TeleHealth) Radiation Oncology at [address] [phone] Ping Moore PA [facility] DR [place] [address] 03/26/2024 9:30 AM EST Office Visit Hematology/Oncology at [address] [phone] Yessi Renee APRN [address] [place] [address] HEMATOLOGY AND ONCOLOGY [place], [place] [phone] 03/26/2024 9:30 AM EST Infusion Hematology Oncology at [address] [phone] 04/09/2024 9:30 AM EST Office Visit Hematology/Oncology at [address] [phone] Cl Hess MD [facility] [place] [address] HEMATOLOGY AND ONCOLOGY [place], [place] [address] 04/09/2024 10:00 AM EST Infusion Hematology Oncology at [address] [phone] 04/23/2024 9:30 AM EST Office Visit Hematology/Oncology at [address] [phone] Cl Hess MD [facility] [place] [place] [address] [address] HEMATOLOGY [place] [address] 04/23/2024 10:00 AM EST Infusion Hematology Oncology at [address] [phone] 05/18/2024 4:30 PM EDT TH Visit (TeleHealth) [place] [address] Malachi Rothman MD [facility] [place] [address] documented as of this encounter Visit Diagnoses Not on filedocumented in this encounter Care Teams Transcription Specialist Relationship Specialty Start Date End Date Alo Carey DO [address] [place] [address] [place] [address] PCP - General Internal Medicine 08/31/20 07/03/23 documented as of this encounter
--- OUTSIDE RECORDS SUMMARY | 2024-03-12 10:55 | XMS_ITS | Encounter Summary ---
Author Organization Formerly [facility], [facility] Address [facility] [place] [address] Care Team Providers Care Video And Sound Recorder Name Role Phone YungAlo santiago Primary Care Provider [phone] Encounter Details Date Type Department Care Team (Latest Contact Info) Description 07/02/2023 12:14 PM EDT - 07/02/2023 5:13 PM EDT Hospital Encounter [place] [address] Pako Lopez MD [facility] [place] [address] Discharge Disposition: Home Social History Tobacco Use Types Packs/Day Years Used Date Smoking Tobacco: Former Cigarettes 1992 Smokeless Tobacco: Never Alcohol Use Standard Drinks/Week Comments Yes 7 (1 standard drink = 0.6 oz pur e alcohol) [facility] Utilities Answer Date Recorded In the past 12 months has ebookpie, gas, oil, or water company threatened to [...] in a mcc (including now)? No 06/04/2023 Sex and Gender [...] 20 mg by mouth daily. 05/20/2023 omega 7-vne-qnv-fish oil 250-350-1,000 mg Capsule Take 1,000 mg [...] Maximum 16 mg in 24 hours 10/30/2023 zwqnpw-tlovzdtj-qogi ase DR (Creon 24) 24,000-76,000 -120,000 unit [...] uncovered metal stent placed Apr 2023 in [facility], concern for stent occlusion Patient Active [...] Operative Note Patient Name: Wero Sadler : [id number] MR#: [id number] Case Date: 07/02/2023 Surgeon: Surgeon(s) and Role: [...] EST TH Visit (TeleHealth) Radiation Oncology at [address] [phone] Ping Moore PA [facility] DR HEMATOLOGY [place] [address] 03/26/2024 9:30 AM EST Office Visit Hematology/Oncology at [address] [phone] ROLLER OPERATOR [employer] [address] [place] [address] DR [place] [address] 03/26/2024 9:30 AM EST Infusion Hematology Oncology at [address] [phone] 04/09/2024 9:30 AM EST Office Visit Hematology/Oncology at [address] [phone] Cl Hess MD [facility] [place] [address] [address] HEMATOLOGY AND ONCOLOGY [place], [place] [address] 04/09/2024 10:00 AM EST Infusion Hematology Oncology at [address] [phone] 04/23/2024 9:30 AM EST Office Visit Hematology/Oncology at [address] [phone] Cl Hess MD [facility] [place] [address] [address] HEMATOLOGY AND ONCOLOGY [place], [place] [address] 04/23/2024 10:00 AM EST Infusion Hematology Oncology at [address] [phone] 05/18/2024 4:30 PM EDT TH Visit (TeleHealth) [place] [address] Malachi Rothman MD [facility] [place] [address] documented as of this encounter Procedures Procedure Name Priority Date/Time Associated Diagnosis Comments XR ERCP Routine 07/02/2023 3:29 PM EDT RADIOFREQUENCY ABLATION 07/02/2023 2:39 PM EDT Bets- 1-2 weeks EUS/ERCP patient with pancreatic cancer s/p ercp with stent in [facility]. Persistently elevated bilirubin. Ercp, W/Removal Stone, Lonnie/Pancr Ducts ([id number]) 07/02/2023 2:39 PM EDT Bets- 1-2 weeks EUS/ERCP patient with pancreatic cancer s/p ercp with stent in [facility]. Persistently elevated bilirubin. Ercp, Diagnostic ([id number]) 07/02/2023 2:39 PM EDT Bets- 1-2 weeks EUS/ERCP patient with pancreatic cancer s/p ercp with stent in [facility]. Persistently elevated bilirubin. Endoscopic Us Exam, Esoph ([id number]) 07/02/2023 2:39 PM EDT Bets- 1-2 weeks EUS/ERCP patient with pancreatic cancer s/p ercp with stent in [facility]. Persistently elevated bilirubin. ERCP Routine 07/02/2023 2:22 PM EDT documented in this encounter Results * XR ERCP (07/02/2023 3:29 PM EDT) Narrative EUFEMIA - 07/02/2023 3:31 PM EDT See PACS for result report. Pako Lopez MD IMG FILM LIBRARY ORD ERABLES Performing Organization Address City/State/[facility] Co de Phone Number [place], [place] * ERCP (07/02/2023 2:22 PM EDT) ERCP [facility] Endoscopy Procedure Date: 07/02/2023 2:22 PM ? Patient Name: Wero Sadler ? Date of : 1950 ? Age: 73 ? Order #: [id number] ? Instrument Name: [id number]- [id number] ? Procedure: ? ERCP Indications: ? Elevated [...] A biliary stent was visible on the locomotive crane operator film. The ? esophagus was successfully intubated [...] Procedure Code(s): ? --- Professional --- ? 59415, Esophagogastroduod enoscopy, ? flexible, transoral; diagnostic, ? [...] ? prosthesis, initial encounter CPT copyright 2021 [employer]. All rights reserved. The codes documented in this report are preliminary and upon health inspector review may be revised to meet current compliance requirements. Attending Participation: ? I was present and participated during the entire ? procedure, including non-fernando portions. ? Pako Lopez, 07/02/2023 3:34:55 PM _ Real Russell, Number of Addenda: 0 Note Initiated On: 07/02/2023 2:22 PM PROVATION 07/02/2023 2:22 PM EDT Alo Craey DO GENERAL SURGICAL ORD ERABLES PROVATION documented [...] CRNA) documented in this encounter Care Teams Video And Sound Recorder Relationship Specialty Start Date End Date Alo Carey DO [address] [place] [address] [place] [phone] PCP - General Internal Medicine 08/31/20 07/03/23 documented as of this encounter
--- OUTSIDE RECORDS SUMMARY | 2024-03-12 10:55 | XMS_ITS | Encounter Summary ---
Author Organization Formerly [facility] [place] [address] Care Team Providers Care Wood Web Weaving Machine Operator Name Role Phone YungAlo santiago Primary Care Provider [phone] Reason for Referral * Consultation (Routine) - Closed Specialty Diagnoses / Procedures Referred By Marques livingston Referred To Contact General Surgery Diagnoses Malignant neoplasm of head of pancreas Cl Hess MD [facility] [place] [address] Charu Balbuena MD [facility] [place] [address] Referral ID Status Reason Start Date Expiration Date V isits Requested Visits Authorized [id number] Closed Consult, Test & Treat 06/06/2023 06/05/2024 1 1 * Consultation (Urgent) - Closed Specialty Diagnoses / Procedures Referred By Marques livingston Referred To Contact Genetics Diagnoses Malignant neoplasm of head of pancreas Cl Hess MD [facility] [place] [address] [facility] Hem Onc [address] [place] [address] Referral ID Status Reason Start Date Expiration Date V isits Requested Visits Authorized [id number] Closed Consult, Test & Treat 06/06/2023 06/05/2024 1 1 Reason for Visit * Consultation (Routine) - Closed Specialty Diagnoses / Procedures Referred By Marques livingsotn Referred To Contact Diagnoses Malignant neoplasm of head of pancreas Cameron Blackwell, [address] [address] Cl Hess MD [address] [place] [address] [place] [address] Referral ID Status Reason Start Date Expiration Date V isits Requested Visits Authorized [id number] Closed Consult, Test & Treat 05/21/2023 05/20/2024 1 1 Encounter Details Date Type Department Care Team (Latest Contact Info) Description 06/07/2023 3:00 PM EDT Office Visit Hematology/Oncology at [address] [phone] Cl Hess MD [facility] [place] [address] Malignant neoplasm of head of pancreas; Pancreatic insufficiency Social History Tobacco Use Types Packs/Day Years Used Date Smoking Tobacco: Former Cigarettes 4 30 1 - 1992 Smokeless Tobacco: Never Alcohol Use Standard Drinks/Week Comments Yes 7 (1 standard drink = 0.6 oz pur e alcohol) [facility] Utilities Answer Date Recorded In the [...] periduodenal or perilesional adenopathy was appreciated Impression: [id number] pancreas head mass lesion with biliary and [...] a couple of occasions. 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 While in [facility], he presented with chest pain [...] have requested the pathology for review at [facility] and have also requested that images be [...] in the absence of cold, hypersensitivity reactions, angina/SD and others. He was given an informational handout regarding mFolfirinox. Blood will be drawn for PGX to be sure he doesn't have variant in DPYD or UGT1A1 that would put himat high risk of severe fluoropyrimidine related toxicity. I will ask that this be done when he is seen at [facility], along with baseline labs. This will need [...] will be followed also by our clinical waterproof coating machine tender, Lupe Velasquez. Plan: - Get outside images: CT chest, CT a/p and pet scan - Obtain outside pathology for review at [facility] - Present at [facility] on 06/18/23 - F/u after Tumor Board discussion - Referral to Pancreatobiliary surgeon at [facility] (Dr. Balbuena or Dr. Espinosa) - Labs at [facility], same day as surgery appt - to include PGX testing - Referral to our Clinical Saw RepairerLupe - Referral to Familial cancer Program - f/u in [facility] for neoadjuvant therapy * Kristi Alvarado RN - 06/07/2023 3:00 PM EDT [facility] Patient Medical Oncology Note SOCIAL ASSESSMENT: See [facility] social assessment information entered. 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 Abbi Reynolds at [facility] Rx insurance? [ ] yes [ ] no Local Pharmacy: [facility]: Balance difficulty: [ ]no [ [...] EST TH Visit (TeleHealth) Radiation Oncology at [address] [phone] Ping Moore PA [facility] HEMATOLOGY [place] [address] 03/26/2024 9:30 AM EST Office Visit Hematology/Oncology at [address] [phone] [address] HEMATOLOGY AND ONCOLOGY [place], [place] [phone] 03/26/2024 9:30 AM EST Infusion Hematology Oncology at [address] [phone] 04/09/2024 9:30 AM EST Office Visit Hematology/Oncology at [address] [phone] Cl Hess MD [facility] [place] [address] [address] HEMATOLOGY AND ONCOLOGY [place], [place] [phone] 04/09/2024 10:00 AM EST Infusion Hematology Oncology at [address] [phone] 04/23/2024 9:30 AM EST Office Visit Hematology/Oncology at [address] [phone] Cl Hess MD [facility] [place] [address] Yessi Renee APRN [address] [place] [address] DR [place]Y [place] [address] 04/23/2024 10:00 AM EST Infusion Hematology Oncology at [address] [phone] 05/18/2024 4:30 PM EDT TH Visit (TeleHealth) [place] [address] Malachi Rothman MD [facility] DR [place] [address] Scheduled Referrals Name Type Priority Associated Diagnoses [...] pancreas documented in this encounter Care Teams Wood Web Weaving Machine Operator Relationship Specialty Start Date End Date Alo Carey DO [address] [place] [address] [place] [address] PCP - General Internal Medicine 08/31/20 07/03/23 documented as of this encounter
--- OUTSIDE RECORDS SUMMARY | 2024-03-12 10:55 | XMS_ITS | Encounter Summary ---
[place] [address] Care Team Providers Care Information Services Tech Name Role Phone Alo Carey DO Primary Care Provider [phone] Reason for Visit * Reason Comments Genetic Evaluation * Consultation (Urgent) - Closed Specialty Diagnoses / Procedures Referred By Marques livingston Referred To Contact Genetics Diagnoses Malignant neoplasm of head of pancreas Cl Hess MD [facility] [address] [facility] Hem Onc [address] [place] [address] Referral ID Status Reason Start Date Expiration Date V isits Requested Visits Authorized [id number] Closed Consult, Test & Treat 06/06/2023 06/05/2024 1 1 Encounter Details Date Type Department Care Team (Late st Contact Info) Description 06/13/2023 11:00 AM EDT TH Visit (TeleHealth) Hematology [place] [address] Real Cardenas V, [facility] Hematology/[place] [address] Malignant neoplasm of head of pancreas; Malignant [...] for neoadjuvant chemotherapy to be done in [facility]. Wero was previously diagnosed with prostate cancer in 2020, with biopsy done by Dr. Mayo in [place], [place] showing emilee 3+3 in 2 of [...] history and genetic testing while in in [place], but from our conversation and review of available records it does not appear that germline genetic testing has been completed. Family History of Cancer Problem Relation Age of Onset Liver Cancer Mother Brain Cancer Sister Stomach Cancer Brother Melanoma Brother Uterine Cancer Maternal Grandmother Lung Cancer Maternal Grandfather Lung Cancer Maternal Aunt 36 heavy smoker Maternal ethnic background is [place]. Paternal ethnic background is [place]. There is no known Ashkenazi Baptist ancestry. Genetic risk assessment Based on personal [...] at [email or web address]. Wero opted for testing with [employer]' CancerNext-Expanded +RNAinsight Panel, a next generation sequencing panel that simultaneously analyzes 71 genes, including BRCA1, BRCA2, MLH1, MSH2, MSH6, PMS2, and EPCAM that contribute to increased risk for cancer. Wero was verbally consented and will be sent consent forms via [email or web address] to review, sign, and return. Amy will plan on assisting Wero with reading and signing these consents. Orders for the blood draw will be placed after signed consents are received. His blood sample will be drawn in ST once he has started infusions and sent to[facility]. Wero will be notified by text and/or email once [employer] completes their benefits investigation if his estimated out of pocket cost is over $100. At that time, if Wero is concerned about the estimated test cost he will have the option to contact Rony directly and either apply for [facility]'s patient assistance program to try and reduce cost of testing based on income information, cancel testing, orswitch to a self-pay option of $250. If Wero does not respond to Abigail, testing will be billed tohis insurance as [...] TH Visit (TeleHealth) Radiation Oncology at [address] [phone] Ping Moore PA [facility] DR HEMATOLOGY [place] [address] 03/26/2024 9:30 AM EST Office Visit Hematology/Oncology at [address] [phone] Yessi Renee APRN [address] [place] [address] DR HEMATOLOGY AND ONCOLOGY [place], [place] [address] 03/26/2024 9:30 AM EST Infusion Hematology Oncology at [address] [phone] 04/09/2024 9:30 AM EST Office Visit Hematology/Oncology at [address] [phone] Cl Hess MD [facility] [address] Yessi Renee, [address] HEMATOLOGY AND ONCOLOGY [place], [place] [address] 04/09/2024 10:00 AM EST Infusion Hematology Oncology at [address] [phone] 04/23/2024 9:30 AM EST Office Visit Hematology/Oncology at [address] [phone] Cl Hess MD [facility] [address] [address] HEMATOLOGY AND ONCOLOGY [place], [place] [address] 04/23/2024 10:00 AM EST Infusion Hematology Oncology at [address] [phone] 05/18/2024 4:30 PM EDT TH Visit (TeleHealth) [place] [address] Malachi Rothman MD [facility] [place] [address] Scheduled Referrals Name Type Priority Associated Diagnoses [...] intestine documented in this encounter Care Teams Information Services Tech Relationship Specialty Start Date End Date Alo Carey DO [address] [place] [address] [place] [phone] PCP - General Internal Medicine 08/31/20 07/03/23 documented as of this encounter
--- OUTSIDE RECORDS SUMMARY | 2024-03-12 10:55 | XMS_ITS | Encounter Summary ---
Author Organization Formerly [facility] [place] [address] Care Team Providers Care Carder Blankets Name Role Phone Alo Carey DO Primary Care Provider [phone] Reason for Referral * Consultation (Urgent) - Closed Specialty Diagnoses / Procedures Referred By Marques livingston Referred To Contact Gastroenterology Diagnoses Malignant neoplasm of head of pancreas Hyperbilirubinemia Procedures Bets- 1-2 weeks EUS/ERCP Cl Hess MD [facility] [place] [place] [address] [facility] Endoscopy [address] [place] [address] Referral ID Status Reason Start Date Expiration Date V isits Requested Visits Authorized [id number] Closed Specialty Service Requested 06/26/2023 06/25/2024 1 1 Encounter Details Date Type Department Care Team (Late st Contact Info) Description 06/26/2023 Orders Only Hematology and Oncology at [facility] [place] [address] Cl Hess MD [facility] [place] [address] Malignant neoplasm of head of pancreas; Hyperbilirubinemia Social History Tobacco Use Types Packs/Day Years Used Date Smoking Tobacco: Former Cigarettes 4 30 1 1992 Smokeless Tobacco: Never Alcohol Use Standard Drinks/Week Comments Yes 7 (1 standard drink = 0.6 oz pur e alcohol) [facility] Utilities Answer Date Recorded In the [...] in a custodial (including now)? No 06/04/2023 Sex and Gender Information Value Date Recorded Sex Assigned at Not on file Gender Identity Not on file Sexual Orientation Not on file documented as of this encounter Progress Notes * Gm Blas RN - 06/26/2023 9:44 AM EDTSummary: Care Coordination Patient met with Dr. Balbuena yesterday for a surgical consult. Patient had his repeat labs then as well. His T. Bili is at 2.0 and transaminases are trending upward compare to his last labs from 05/15 which was done in [place]. During the course of his diagnostic work-up in [place], he had undergone ERCP on 04/29/23 and [...] EST TH Visit (TeleHealth) Radiation Oncology at [address] [phone] Ping Moore PA [facility] HEMATOLOGY [place] [address] 03/26/2024 9:30 AM EST Office Visit Hematology/Oncology at [address] [phone] Yessi Renee APRN [address] [place] [address] HEMATOLOGY AND ONCOLOGY [place], [place] [phone] 03/26/2024 9:30 AM EST Infusion Hematology Oncology at [address] [phone] 04/09/2024 9:30 AM EST Office Visit Hematology/Oncology at [address] [phone] Cl Hess MD [facility] [place] [address] [address] [place] [address] 04/09/2024 10:00 AM EST Infusion Hematology Oncology at [address] [phone] 04/23/2024 9:30 AM EST Office Visit Hematology/Oncology at [address] [phone] Cl Hess MD [facility] [place] [place] [address] [address] HEMATOLOGY AND ONCOLOGY [place], [place] [address] 04/23/2024 10:00 AM EST Infusion Hematology Oncology at [address] [phone] 05/18/2024 4:30 PM EDT TH Visit (TeleHealth) [place] [address] Malachi Rothman MD [facility] [place] [address] Scheduled Referrals Name Type Priority Associated Diagnoses Order Schedule Referral to Gastroenterology Outpatient Referral Routine Malignant neoplasm of head of pancreas Hyperbilirubinemia Ordered: 06/26/2023 documented as of this encounter Visit Diagnoses Diagnosis Malignant neoplasm of head of pancreas Hyperbilirubinemia Jaundice, unspecified, not of documented in this encounter Care Teams Carder Blankets Relationship Specialty Start Date End Date Alo Carey DO [address] [place] [address] [place] [phone] PCP - General Internal Medicine 08/31/20 07/03/23 documented as of this encounter
--- OUTSIDE RECORDS SUMMARY | 2024-03-12 10:55 | XMS_ITS | Encounter Summary ---
Author Organization [facility] [place] [address] Care Team Providers Care Wedding Day Coordinator Name Role Phone YungAlo santiago Primary Care Provider [phone] Encounter Details Date Type Department Care Team (Latest Contact Info) Description 06/19/2023 8:45 AM EDT TH Visit (TeleHealth) [place]emat[place] [address] Cl Hess MD [facility] [address] Malignant neoplasm of head of pancreas Social [...] periduodenal or perilesional adenopathy was appreciated Impression: [id number] pancreas head mass lesion with biliary and [...] unsteadiness in the morning. 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 He was given an informational handout regarding mFolfirinox. We reviewed his case at [facility] on 06/18/23. The Ct from 05/22/23 [...] plan was for a blood draw in [facility] once he starts his infusions. If genetic testing showed a BRCA or PALB2 mutation, he may be eligible for a clinical trial looking at theuse olaparib following completion of chemotherapy and surgery to see if this improves RFS. He will be followed also by our clinical windows mobile developer, Lupe Velasquez. Plan: - Referral to Pancreatobiliary surgeon at [facility] - scheduled with Dr. Balbuena on 06/25/23. Diagnostic laparoscopy recommended per [facility]. Anticipate that mediport will be placed the same day. - Labs at [facility], same day as surgery appt - to include PGX testing (patient aware and will stop at lab) - Referral to our Clinical Auto Wrecker, Lupe Velasquez - Referral to Familial cancer Program - done on 06/13/23. Blood to be drawn for genetic testing in [facility] once treatment starts - f/u in [facility] for neoadjuvant therapy after laparoscopy. I provided care to the patient today via telephone call. The total time associated with this visit was 30 minutes. documented in this encounter Plan of Treatment Upcoming Encounters Date Type Department Care Team (Late st Contact Info) Description 03/24/2024 9:00 AM EST TH Visit (TeleHealth) Radiation Oncology at [address] [phone] Ping Moore PA [facility] DR HEMATOLOGY [place] [address] 03/26/2024 9:30 AM EST Office Visit Hematology/Oncology at [address] [phone] [address] HEMATOLOGY AND ONCOLOGY [place], [place] [address] 03/26/2024 9:30 AM EST Infusion Hematology Oncology at [address] [phone] 04/09/2024 9:30 AM EST Office Visit Hematology/Oncology at [address] [phone] Cl Hess MD [facility] [place] [address] [address] HEMATOLOGY AND ONCOLOGY [place], [place] [address] 04/09/2024 10:00 AM EST Infusion Hematology Oncology at [address] [phone] 04/23/2024 9:30 AM EST Office Visit Hematology/Oncology at [address] [phone] Cl Hess MD [facility] [place] [address] [address] HEMATOLOGY AND ONCOLOGY [place], [place] [address] 04/23/2024 10:00 AM EST Infusion Hematology Oncology at [address] [phone] 05/18/2024 4:30 PM EDT TH Visit (TeleHealth) [place] [phone] Malachi Rothman MD [facility] [place] [address] Scheduled Orders Name Type Priority Associated Diagnoses [...] PM EDT) CA 19-9 390.0(H) <=35.0 u/ml [facility] Comment: This result was generated using a Danni Lita immunoassay. ??Results obtained from other methods or manufacturers cannot be used interchangeably with this method. Blood 06/25/2023 2:37 PM EDT 06/25/2023 2:43 PM EDT Narrative Resulting Agency Comment Spec In Lab Cl Hess MD CHEMISTRY ORDERABLES [facility] [place] [address] * (ABNORMAL) Comprehensive metabolic panel (non-fasting) (06/25/2023 2:37 PM EDT) Glucose 410(H) 65 - 199 mg/dL [facility] Comment:Diabetes: >=200 mg/d L plus symptoms Blood Urea Nitrogen 19 10 - 20 mg/dL [facility] Creatinine 0.66(L) 0.80 - 1.50 mg/dL [facility] Sodium 135 135 - 145 mmol/L [facility] Potassium 4.0 3.5 - 5.0 mmol/L [facility] Comment: Please note: ??Patients with WBC >100,000 may have falsely elevated Potassium levels. ??For accurate Potassium quantification in these patients send serum separator tube (gold top) for subsequent determinations. ??Contact the Clinical Chemistry Laboratory if there are any questions. Chloride 96(L) 98 - 107 mmol/L [facility] Carbon Dioxide 25 22 - 31 mmol/L [facility] Anion Gap 14 5 - 15 mmol/L [facility] Calcium 9.3 8.5 - 10.5 mg/dL [facility] Protein, Total 6.4 6.1 - 8.0 g/dL [facility] Albumin 4.0 3.2 - 5.2 g/dL [facility] Aspartate Aminotransferase 122(H) 0 - 39 unit/L [facility] Alanine Aminotransferase 200(H) 0 - 55 unit/L [facility] Alkaline Phosphatase 303(H) 40 - 130 unit/L [facility] Bilirubin, Total 2.0(H) 0.2 - 1.3 mg/dL [facility] Est Glomerular Filtration Rate 98 >=60 mL/min/1. 73 m?? [facility] Comment: This patient's estimated [...] Hess MD CHEMISTRY ORDERABLES Performing Organization Address City/[facility]/[place] [address] * PGx Oncology (06/25/2023 2:37 PM EDT) Blood VENOUS BLOOD SPECIMEN / Unknown 06/25/2023 2:37 PM EDT 06/26/2023 8:27 AM EDT Narrative Resulting Agency Comment Spec In Lab Cl Hess MD MOLECULAR ORDERABLES Performing Organization Address [facility] [place] [address] documented in this encounter Visit Diagnoses Diagnosis Malignant neoplasm of head of pancreas documented in this encounter Care Teams Wedding Day Coordinator Relationship Specialty Start Date End Date Alo Carey DO [address] [place] [address] [place] [phone] PCP - General Internal Medicine 08/31/20 07/03/23 documented as of this encounter
--- OUTSIDE RECORDS SUMMARY | 2024-03-12 10:55 | XMS_ITS | Encounter Summary ---
Author Organization [place] [address] Care Team Providers Care Docking Saw Operator Name Role Phone Alo Carey DO Primary Care Provider [phone] Encounter Details Date Type Department Care Team (Late st Contact Info) Description 06/19/2023 External [place] [phone] Provider, Scanning Social History Tobacco Use Types Packs/Day Years Used Date Smoking Tobacco: Former Cigarettes 4 30 1 963 - 1992 Smokeless Tobacco: Never Alcohol Use Standard Drinks/Week Comments Yes 7 (1 standard drink = 0.6 oz pur e alcohol) [facility] Utilities Answer Date Recorded In [...] in a alf (including now)? No 06/04/2023 Sex and Gender Information Value Date Recorded Sex Assigned at Not on file Gender Identity Not on file Sexual Orientation Not on file documented as of this encounter Plan of Treatment Upcoming Encounters Date Type Department Care Team (Late st Contact Info) Description 03/24/2024 9:00 AM EST TH Visit (TeleHealth) Radiation Oncology at [address] [phone] Ping Moore PA [facility] [place] [address] 03/26/2024 9:30 AM EST Office Visit Hematology/Oncology at [address] [phone] Yessi Renee APRN [address] [place] [address] HEMATOLOGY AND ONCOLOGY [place], [place] [phone] 03/26/2024 9:30 AM EST Infusion Hematology Oncology at [address] [phone] 04/09/2024 9:30 AM EST Office Visit Hematology/Oncology at [address] [phone] Cl Hess MD [facility] [place] [address] HEMATOLOGY AND ONCOLOGY [place], [place] [address] 04/09/2024 10:00 AM EST Infusion Hematology Oncology at [address] [phone] 04/23/2024 9:30 AM EST Office Visit Hematology/Oncology at [address] [phone] Cl Hess MD [facility] [place] [address] [address] HEMATOLOGY AND ONCOLOGY [place], [place] [address] 04/23/2024 10:00 AM EST Infusion Hematology Oncology at [address] [phone] 05/18/2024 4:30 PM EDT TH Visit (TeleHealth) [place] [address] Malachi Rothman MD [facility] [place] [address] documented as of this encounter Procedures Procedure Name Priority Date/Time Associated Diagnosis Comments SURGICAL PATHOLOGY SCAN Routine 06/19/2023 documented in this encounter Results * Scan Doc: Surgical Pathology (06/19/2023) Historical Provider MD CADE MGR SCAN EX T ORDR/RSLT documented in this encounter Visit Diagnoses Not on filedocumented in this encounter Care Teams Docking Saw Operator Relationship Specialty Start Date End Date Alo Carey DO [address] [place] [address] [place] [phone] PCP - General Internal Medicine 08/31/20 07/03/23 documented as of this encounter
--- OUTSIDE RECORDS SUMMARY | 2024-03-12 10:55 | XMS_ITS | Encounter Summary ---
[place] [address] Care Team Providers Care Cracker Sprayer Name Role Phone YungAlo santiago Primary Care Provider [phone] Encounter Details Date Type Department Care Team (Late st Contact Info) Description 06/25/2023 2:35 PM EDT Laboratory Appointment Lab [address] [place] [address] Social History Tobacco Use Types Packs/Day Years Used Date Smoking Tobacco: Former Cigarettes 4 30 1 963 - 1992 Smokeless Tobacco: Never Alcohol Use Standard Drinks/Week Comments Yes 7 (1 standard drink = 0.6 oz pur e alcohol) [facility] Utilities Answer Date Recorded In the past 12 months has [employer], gas, oil, or water [employer] threatened to shut off services in your [...] in a penitentiary (including now)? No 06/04/2023 Sex and Gender Information Value Date Recorded Sex Assigned at Not on file Gender Identity Not on file Sexual Orientation Not on file documented as of this encounter Plan of Treatment Upcoming Encounters Date Type Department Care Team (Late st Contact Info) Description 03/24/2024 9:00 AM EST TH Visit (TeleHealth) Radiation Oncology at [address] [phone] Ping Moore PA [facility] DR HEMATOLOGY [place] [address] 03/26/2024 9:30 AM EST Office Visit Hematology/Oncology at [address] [phone] Yessi Renee APRN [address] [place] [address] DR HEMATOLOGY AND ONCOLOGY [place], [place] [phone] 03/26/2024 9:30 AM EST Infusion Hematology Oncology at [address] [phone] 04/09/2024 9:30 AM EST Office Visit Hematology/Oncology at [address] [phone] Cl Hess MD [facility] [place] [address] [place] [address] 04/09/2024 10:00 AM EST Infusion Hematology Oncology at [address] [phone] 04/23/2024 9:30 AM EST Office Visit Hematology/Oncology at [address] [phone] Cl Hess MD [facility] [place] [address] [address] [place] [address] 04/23/2024 10:00 AM EST Infusion Hematology Oncology at [address] [phone] 05/18/2024 4:30 PM EDT TH Visit (TeleHealth) [place] [address] Malachi Rothman MD [facility] [place] [address] documented as of this encounter Visit Diagnoses Not on filedocumented in this encounter Care Teams Cracker Sprayer Relationship Specialty Start Date End Date Alo Carey DO [address] [place] [address] [place] [phone] PCP - General Internal Medicine 08/31/20 07/03/23 documented as of this encounter
--- OUTSIDE RECORDS SUMMARY | 2024-03-12 10:55 | XMS_ITS | Encounter Summary ---
[place] [address] Care Team Providers Care Chief Service Dispatcher Name Role Phone Alo Carey Primary Care Provider [phone] Encounter Details Date Type Department Care Team (Late st Contact Info) Description 06/23/2023 Orders Only [place]ology [place] [address] Real Cardenas V, [facility] Dr Hematology/[place] [address] Malignant neoplasm of head of pancreas; Malignant neoplasm of prostate Social History Tobacco Use Types Packs/Day Years Used Date Smoking Tobacco: Former Cigarettes 4 30 1 3 - 1992 Smokeless Tobacco: Never Alcohol Use Standard Drinks/Week Comments Yes 7 (1 standard drink = 0.6 oz pur e alcohol) [facility] Utilities Answer Date Recorded In the past 12 months has [employer], gas, oil, or water company threatened [...] TH Visit (TeleHealth) Radiation Oncology at [address] [phone] Ping Moore PA [facility] DR [place] [address] 03/26/2024 9:30 AM EST Office Visit Hematology/Oncology at [address] [phone] Yessi Renee APRN [address] [place] [address] DR HEMATOLOGY [place] [address] 03/26/2024 9:30 AM EST Infusion Hematology Oncology at [address] [phone] 04/09/2024 9:30 AM EST Office Visit Hematology/Oncology at [address] [phone] Cl Hess MD [facility] [address] [address] HEMATOLOGY AND ONCOLOGY [place], [place] [phone] 04/09/2024 10:00 AM EST Infusion Hematology Oncology at [address] [phone] 04/23/2024 9:30 AM EST Office Visit Hematology/Oncology at [address] [phone] Cl Hess MD [facility] [place] [address] [address] HEMATOLOGY [place] [address] 04/23/2024 10:00 AM EST Infusion Hematology Oncology at [address] [phone] 05/18/2024 4:30 PM EDT TH Visit (TeleHealth) [place] [address] Malachi Rothman MD [facility] [place] [address] documented as of this encounter Visit Diagnoses Diagnosis Malignant neoplasm of head of pancreas Malignant neoplasm of prostate documented in this encounter Care Teams Chief Service Dispatcher Relationship Specialty Start Date End Date Alo Carey DO [address] [place] [address] [place] [phone] PCP - General Internal Medicine 08/31/20 07/03/23 documented as of this encounter
--- OUTSIDE RECORDS SUMMARY | 2024-03-12 10:55 | XMS_ITS | Encounter Summary ---
Author Organization [facility] Address [facility] [place] [address] Care Team Providers Care Nursery Nurse Name Role Phone Alo Carey DO Primary Care Provider [phone] Encounter Details Date Type Department Care Team (Late st Contact Info) Description 05/27/2023 Ancillary Procedure Radiology Library at [facility] [place] [address] Cl Hess MD [facility] [place] [place] [address] Social History Tobacco Use Types Packs/Day Years [...] (TeleHealth) Radiation Oncology at [address] [phone] Ping Moore PA [facility] DR HEMATOLOGY [place] [address] 03/26/2024 9:30 AM EST Office Visit Hematology/Oncology at [address] [phone] [address] HEMATOLOGY AND ONCOLOGY [place], [place] [address] 03/26/2024 9:30 AM EST Infusion Hematology Oncology at [address] [phone] 04/09/2024 9:30 AM EST Office Visit Hematology/Oncology at [address] [phone] Cl Hess MD [facility] [place] [address] [address] HEMATOLOGY AND ONCOLOGY [place], [place] [phone] 04/09/2024 10:00 AM EST Infusion Hematology Oncology at [address] [phone] 04/23/2024 9:30 AM EST Office Visit Hematology/Oncology at [address] [phone] Cl Hess MD [facility] [place] [address] [address] HEMATOLOGY AND ONCOLOGY [place], [place] [phone] 04/23/2024 10:00 AM EST Infusion Hematology Oncology at [address] [phone] 05/18/2024 4:30 PM EDT TH Visit (TeleHealth) [place] [address] Malachi Rothman MD [facility] [place] [address] documented as of this encounter Procedures Procedure Name Priority Date/Time Associated Diagnosis Comments FILM LIBRARY STORAGE ONLY NM PET/CT Routine 05/27/2023 12:00 AM EDT documented in this encounter Results * Film Library- Storage Only NM Pet / CT (05/27/2023 12:00 AM EDT) Narrative [facility] - 06/17/2023 8:57 AM EDT This exam is auto-finalizing. It's purpose is for storage only. Cl Hess MD IMG FILM LIBRARY ORD ERABLES [place], [place] documented in this encounter Visit Diagnoses Not on filedocumented in this encounter Care Teams Nursery Nurse Relationship Specialty Start Date End Date Alo Carey DO [address] [place] [address] [place] [phone] PCP - General Internal Medicine 08/31/20 07/03/23 documented as of this encounter
--- OUTSIDE RECORDS SUMMARY | 2024-03-12 10:55 | XMS_ITS | Encounter Summary ---
Author Organization [facility] Address [facility] [place] [address] Care Team Providers Care Insulator Tester Name Role Phone Alo Carey DO Primary Care Provider Encounter Details Date Type Department Care Team (Late st Contact Info) Description 04/18/2023 Ancillary Procedure Radiology Library at [facility] [place] [address] Cl Hess MD [facility] [place] [address] Social History Tobacco Use Types Packs/Day Years [...] TH Visit (TeleHealth) Radiation Oncology at [address] [phone] Ping Moore PA [facility] DR HEMATOLOGY [place] [address] 03/26/2024 9:30 AM EST Office Visit Hematology/Oncology at [address] [phone] [address] HEMATOLOGY AND ONCOLOGY [place], [place] [address] 03/26/2024 9:30 AM EST Infusion Hematology Oncology at [address] [phone] 04/09/2024 9:30 AM EST Office Visit Hematology/Oncology at [address] [phone] Cl Hess MD [facility] [address] [address] HEMATOLOGY AND ONCOLOGY [place], [place] [phone] 04/09/2024 10:00 AM EST Infusion Hematology Oncology at [address] [phone] 04/23/2024 9:30 AM EST Office Visit Hematology/Oncology at [address] [phone] Cl Hess MD [facility] [place] [address] [address] HEMATOLOGY AND ONCOLOGY [place], [place] [address] 04/23/2024 10:00 AM EST Infusion Hematology Oncology at [address] [phone] 05/18/2024 4:30 PM EDT TH Visit (TeleHealth) [place] [address] Malachi Rothman MD [facility] [place] [address] documented as of this encounter Procedures Procedure Name Priority Date/Time Associated Diagnosis Comments FILM LIBRARY STORAGE ONLY CT ABDOMEN AND PELVIS Routine 04/18/2023 12:00 AM EST documented in this encounter Results * Film Library- Storage Only CT Abdomen & Pelvis (04/18/2023 12:00 AM EST) Narrative [facility] - 06/17/2023 12:12 PM EDT This exam is auto-finalizing. It's purpose is for storage only. Cl Hess MD IMG FILM LIBRARY ORD ERABLES [place], [place] documented in this encounter Visit Diagnoses Not on filedocumented in this encounter Care Teams Insulator Tester Relationship Specialty Start Date End Date Alo Carey DO [address] [place] [address] [place] [phone] PCP - General Internal Medicine 08/31/20 07/03/23 documented as of this encounter
--- OUTSIDE RECORDS SUMMARY | 2024-03-12 10:55 | XMS_ITS | Encounter Summary ---
Author Organization [facility] Address [facility] [place] [address] Care Team Providers Care Chief Power Dispatcher Name Role Phone Alo Carey DO Primary Care Provider [phone] Reason for Visit * Consultation (Routine) - Closed Specialty Diagnoses / Procedures Referred By Marques livingston Referred To Contact General Surgery Diagnoses Malignant neoplasm of head of pancreas Cl Hess MD [facility] [place] [address] Charu Balbuena MD [facility] [place] [address] Referral ID Status Reason Start Date Expiration Date V isits Requested Visits Authorized [id number] Closed Consult, Test & Treat 06/06/2023 06/05/2024 1 1 Encounter Details Date Type Department Care Team (Late st Contact Info) Description 06/25/2023 1:00 PM EDT Office [place] [phone] Charu Balbuena MD [facility] [place] [address] Malignant neoplasm of head of pancreas Social History Tobacco Use Types Packs/Day Years Used Date Smoking Tobacco: Former Cigarettes 07 01 1 1992 Smokeless Tobacco: Never Alcohol Use Standard Drinks/Week Comments Yes 7 (1 standard drink = 0.6 oz pur e alcohol) [facility] Utilities Answer Date Recorded In [...] Sadler is a 73 year old from [place], [place]. Dr. Hess recently presented his case to the GI tumor board on 06/18/2023 as his workup was completed at [facility] in [place]. His history is summarized below: 73 yo, h/o multiple medical problems as above, including colon cancer (resected in 2008), prostate cancer (s/p androgen deprivation and RT), ASCVD (sp 3v CABG), PVDz s/p carotid endarterectomy, priorCVA, DM and others. 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 While in [facility], he presented with chest pain and [...] at the GI tumor board. Down to [place] of the group down there felt that [...] Claudication Colon adenocarcinoma 2008 recieved chemo in [place] Coronary artery disease Coronary artery dissection CPAP [...] 20.72) performed by Ismael Wu MD at [facility] MAIN OR PRO ARTHROPLASTY ACETABULAR/PROX FEM PROSTC AGRFT/ALGRFT Right 11/17/2021 TOTAL HIP ARTHROPLASTY - POSTERIOR (WRVU 20.72) performed by Ismael Wu MD at [facility] MAIN OR PRO EXPLORATION NOT FOLLOWED BY SURG NECK ARTERY Right 07/14/2021 @EXPLORATION NOT FOLLOWED BY SURGICAL REPAIR, ARTERY; NECK (CAROTID OR SUBCLAVIAN) (WRVU 9.19) performed by Basim Barr MD at [facility] MAIN OR PRO LASER VAPORIZATION SURGERY PROSTATE, COMPLETE Midline 02/02/2021 CYSTO, LASER TURP (WRVU 12.15) performed by Cayetano Engle MD at [facility] MAIN OR PRO PLACE TRANSCATHETER STENT, CCA W EMBOLIC PROECT Right 07/14/2021 @TRANSCATH INTRAVASCULAR STENT,CAROTID,PERC,W\EMBOLIC PROT. (WRVU 18) performed by Basim Barr MD at [facility] MAIN OR Medications: vwirmg-zotsgmxm-ynfjrxl DR (Creon 24) 24,000-76,000 -120,[address] capsule Farxiga 10 mg tablet omeprazole (PriLOSEC) [address] capsule Lantus Solostar U-100 Insulin 100 unit/mL (3 mL) pen tamsulosin (Flomax) 0.4 mg capsule omega 6-tyo-hvi-fish oil 250-350-1,000 mg Capsule amLODIPine (Norvasc) 10 [...] procedure at [facility] in [place]: shaking Has tolerated [...] modified FOLFIRINOX per Dr. Hess up in [place]. He may then not require radiation therapy [...] Dr. Hess on July 11 up in [place] to get started with chemotherapy. Hopefully the Mediport will be in place by then and he can get started without any further delays. We will asked that he hold the Farxiga 3 days prior to the surgery date. Roberto Balbuena MD 06/25/2023 1:57 PM Time Spent With Patient: 60 minutes of this 80 minute visit were spent in iwtn-im-qacb discussion and counseling the patient as detailed above. documented in this encounter Plan of Treatment Upcoming Encounters Date Type Department Care Team (Late st Contact Info) Description 03/24/2024 9:00 AM EST TH Visit (TeleHealth) Radiation Oncology at [address] [phone] Ping Moore PA [facility] HEMATOLOGY [place] [address] 03/26/2024 9:30 AM EST Office Visit Hematology/Oncology at [address] [phone] HEMATOLOGY AND ONCOLOGY [place], [place] [phone] 03/26/2024 9:30 AM EST Infusion Hematology Oncology at [address] [phone] 04/09/2024 9:30 AM EST Office Visit Hematology/Oncology at [address] [phone] Cl Hess MD [facility] [place] [address] [place] [address] 04/09/2024 10:00 AM EST Infusion Hematology Oncology at [address] [phone] 04/23/2024 9:30 AM EST Office Visit Hematology/Oncology at [address] [phone] Cl Hess MD [facility] [place] [address] HEMATOLOGY AND ONCOLOGY [place], [place] [address] 04/23/2024 10:00 AM EST Infusion Hematology Oncology at [address] [phone] 05/18/2024 4:30 PM EDT TH Visit (TeleHealth) [place] [address] Malachi Rothman MD [facility] [place] [address] documented as of this encounter Visit Diagnoses Diagnosis Malignant neoplasm of head of pancreas documented in this encounter Care Teams Chief Power Dispatcher Relationship Specialty Start Date End Date Alo Carey DO [address] [place] [address] [place] [phone] PCP - General Internal Medicine 08/31/20 07/03/23 documented as of this encounter
--- OUTSIDE RECORDS SUMMARY | 2024-03-12 10:55 | XMS_ITS | Encounter Summary ---
[place] [address] Care Team Providers Care Flatwork Folder Name Role Phone Alo Carey Primary Care Provider [phone] Encounter Details Date Type Department Care Team (Latest Contact Info) Description 06/04/2023 Travel Social History Tobacco Use Types Packs/Day Years Used Date Smoking Tobacco: Former Cigarettes 4 30 1 963 - 1992 Smokeless Tobacco: Never Alcohol Use Standard Drinks/Week Comments Yes 7 (1 standard drink = 0.6 oz pur e alcohol) [facility] Utilities Answer Date Recorded In the past 12 months has [employer] electric, gas, oil, or water company threatened [...] TH Visit (TeleHealth) Radiation Oncology at [address] [phone] Ping Moore PA [facility] DR HEMATOLOGY [place] [address] 03/26/2024 9:30 AM EST Office Visit Hematology/Oncology at [address] [phone] Yessi Renee APRN [address] [place] [address] HEMATOLOGY AND ONCOLOGY [place], [place] [phone] 03/26/2024 9:30 AM EST Infusion Hematology Oncology at [address] [phone] 04/09/2024 9:30 AM EST Office Visit Hematology/Oncology at [address] [phone] Cl Hess MD [facility] [place] [address] [address] [place] [address] 04/09/2024 10:00 AM EST Infusion Hematology Oncology at [address] [phone] 04/23/2024 9:30 AM EST Office Visit Hematology/Oncology at [address] [phone] Cl Hess MD [facility] [place] [address] [address] [place] [address] 04/23/2024 10:00 AM EST Infusion Hematology Oncology at [address] [phone] 05/18/2024 4:30 PM EDT TH Visit (TeleHealth) [place] [address] Malachi Rothman MD [facility] [place] [address] documented as of this encounter Visit Diagnoses Not on filedocumented in this encounter Care Teams Flatwork Folder Relationship Specialty Start Date End Date Alo Carey DO [address] [place] [address] [place] [address] PCP - General Internal Medicine 08/31/20 07/03/23 documented as of this encounter
--- OUTSIDE RECORDS SUMMARY | 2024-03-12 10:55 | XMS_ITS | Encounter Summary ---
[place] [address] Care Team Providers Care Electrical Maintenance Worker Name Role Phone Cherry Alo Lon [place] Primary Care Provider [phone] Reason for Referral * Diagnostic Test (Routine) - Closed Specialty Diagnoses / Procedures Referred By Contac t Referred To Contact Cardiology Diagnoses Essential hypertension Atherosclerosis of [place] coronary artery of [place] heart without angina pectoris Procedures Mobile Echo Presley Parrish MD [address] [place] [address] [facility] [place] [address] Referral ID Status Reason Start Date Expiration Date V isits Requested Visits Authorized [id number] Closed Specialty Service Requested 06/19/2023 06/18/2024 1 1 Reason for Visit * Diagnostic Test (Routine) - Closed Specialty Diagnoses / Procedures Referred By Contac t Referred To Contact Cardiology Diagnoses Essential hypertension Atherosclerosis of [place] coronary artery of [place] heart without angina pectoris Procedures Mobile Echo Presley Parrish MD [address] [place] [address] [facility] [place] [address] Referral ID Status Reason Start Date Expiration Date V isits Requested Visits Authorized [id number] Closed Specialty Service Requested 06/19/2023 06/18/2024 1 1 Encounter Details Date Type Department Care Team (Latest Contact Info) Description 06/19/2023 12:29 PM EDT - 06/19/2023 4:30 PM EDT Hospital Encounter [place] [address] Presley Parrish MD [address] [place], [place] [id number] Essential hypertension; Atherosclerosis of [place] coronary artery of [place] heart without angina pectoris Discharge Disposition: Home Social History Tobacco Use Types Packs/Day Years Used Date Smoking Tobacco: Former Cigarettes 3 1992 Smokeless Tobacco: Never Alcohol Use Standard Drinks/Week Comments Yes 7 (1 standard drink = 0.6 oz pur e alcohol) [facility] Utilities Answer Date Recorded In the past 12 months has e [employer], gas, oil, or water [employer] threatened to shut off services in your [...] 20 mg by mouth daily. 05/20/2023 omega 4-yun-wty-fish oil 250-350-1,000 mg Capsule Take 1,000 mg [...] (E.C.) Take 81 mg by mouth daily. zkzlot-qpjezhhn-mfjh ase (Creon 24) 24,000-76,000 -120,000 unit capsuleIndications:M [...] EST TH Visit (TeleHealth) Radiation Oncology at [address] [phone] Ping Moore PA [facility] DR HEMATOLOGY [place] [address] 03/26/2024 9:30 AM EST Office Visit Hematology/Oncology at [address] [phone] Yessi Renee APRN [address] [place] [address] DR HEMATOLOGY AND ONCOLOGY [place], [place] [phone] 03/26/2024 9:30 AM EST Infusion Hematology Oncology at [address] [phone] 04/09/2024 9:30 AM EST Office Visit Hematology/Oncology at [address] [phone] Cl Hess MD [facility] [place] [address] [address] HEMATOLOGY AND ONCOLOGY [place], [place] [address] 04/09/2024 10:00 AM EST Infusion Hematology Oncology at [address] [phone] 04/23/2024 9:30 AM EST Office Visit Hematology/Oncology at [address] [phone] Cl Hess MD [facility] [place] [address] [address] HEMATOLOGY AND ONCOLOGY [place], [place] [address] 04/23/2024 10:00 AM EST Infusion Hematology Oncology at [address] [phone] 05/18/2024 4:30 PM EDT TH Visit (TeleHealth) [place] [address] Malachi Rothman MD [facility] [place] [address] documented as of this encounter Procedures Procedure Name Priority Date/Time Associated Diagnosis Comments ECHO COMPLETE Routine 06/19/2023 12:31 PM EDT Essential hypertension Atherosclerosis of [place] coronary artery of [place] heart without angina pectoris documented in this encounter Results * ECHO COMPLETE (06/19/2023 12:31 PM EDT) Anatomical Region Laterality Modality Other 06/19/2023 10:1 3 AM EDT Narrative 06/19/2023 5:32 PM EDT [address] [place] [address] ? Echocardiogram Report Name: THA SADLER ?Study Date: 06/19/2023 10:13 AMBP: 110/58 mmHg ? [facility] 1950 ? Height: 180 cm ? Account: [id number] Age: 73 yrs ? Weight: 92 kg Gender: Male ?BSA: 2.1 m2 Ordering Physician: PRESLEY PARRISH Referring Physician: PRESLEY PARRISH Performed By: Denita Perez RDCS Reason For Study: Hypertension. Atherosclerotic heart disease of [place] coronary artery without angina pectoris. Exam Location: [facility]. Interpretation Summary Left ventricle is of normal size with mild increased wall thickness. Left ventricular systolic function is normal. LV ejection fraction is estimated visually at 65-70%. No segmental wall motion abnormalities. Normal right ventricle. No significant valvular abnormalities. No prior studies available for comparison. Procedure Complete-[id number]. Satisfactory quality. Regular rhythm. Left Ventricle Left [...] Note Rafael Collado MD - 06/19/2023 [address] [place] [id number] Echocardiogram Report Name: THA SADLER Study Date: 06/19/2023 10:13 AMBP:110/58 mmHg Patient Location: : 1950 Height: 180 cmAccount: [id number] Age: 73 yrs Weight: 92 kg Gender: Male BSA: 2.1 m2 Ordering Physician: PRESLEY PARRISH Referring Physician: PRESLEY PARRISH Performed By: Denita Perez RDCS Reason For Study: Hypertension. Atherosclerotic heart disease of [place] coronary artery without angina pectoris. Exam Location: [facility]. Interpretation Summary Left ventricle is of normal size with mild increased wall thickness.Left ventricular systolic function is normal. LV ejection fraction isestimated visually at 65-70%. No segmental wall motion abnormalities. Normal right ventricle. No significant valvular abnormalities. No prior studies available for comparison. Procedure Complete-[id number]. Satisfactory quality. Regular rhythm. Left Ventricle Left [...] Essential hypertension Unspecified essential hypertension Atherosclerosis of [place] coronary artery of [place] heart without angina pectoris documented in this encounter Care Teams Electrical Maintenance Worker Relationship Specialty Start Date End Date Alo Carey DO [address] [place] [address] [place] [phone] PCP - General Internal Medicine 08/31/20 07/03/23 documented as of this encounter
--- OUTSIDE RECORDS SUMMARY | 2024-03-12 10:55 | XMS_ITS | Encounter Summary ---
Author Organization [facility] Address [facility] [place] [address] Care Team Providers Care Wildlife Conservation Officer Name Role Phone Alo Carey Primary Care Provider [phone] Encounter Details Date Type Department Care Team (Latest Contact Info) Description 06/18/2023 9:10 AM EDT Ancillary Procedure Radiology Library at [facility] [place] [address] Cl Hess MD [facility] [place] [address] Malignant neoplasm of head of pancreas Social History Tobacco Use Types Packs/Day Years Used Date Smoking Tobacco: Former Cigarettes 4 30 1 - 1992 Smokeless Tobacco: Never Alcohol Use Standard Drinks/Week Comments Yes 7 (1 standard drink = 0.6 oz pur e alcohol) [facility] Utilities Answer Date Recorded In the past 12 months has [employer] electric, gas, oil, or water company threatened [...] EST TH Visit (TeleHealth) Radiation Oncology at [address] [phone] Ping Moore PA [facility] DR HEMATOLOGY [place] [address] 03/26/2024 9:30 AM EST Office Visit Hematology/Oncology at [address] [phone] Yessi Renee APRN [address] [place] [address] DR HEMATOLOGY AND ONCOLOGY [place], [place] [phone] 03/26/2024 9:30 AM EST Infusion Hematology Oncology at [address] [phone] 04/09/2024 9:30 AM EST Office Visit Hematology/Oncology at [address] [phone] Cl Hess MD [facility] [place] [address] [address] HEMATOLOGY AND ONCOLOGY [place], [place] [phone] 04/09/2024 10:00 AM EST Infusion Hematology Oncology at [address] [phone] 04/23/2024 9:30 AM EST Office Visit Hematology/Oncology at [address] [phone] Cl Hess MD [facility] [place] [address] [address] HEMATOLOGY [place] [address] 04/23/2024 10:00 AM EST Infusion Hematology Oncology at [address] [phone] 05/18/2024 4:30 PM EDT TH Visit (TeleHealth) [place] [address] Malachi Rothman MD [facility] [place] [address] documented as of this encounter Procedures Procedure [...] who have questions please contact the health dog day care attendant that requested your imaging first. ? Electronically signed by: Rafael Ansari DO, [facility] ([phone]), at 06/18/2023 9:36 AM Narrative 06/18/2023 9:36 [...] of outside imaging study * ??Sending Institution [facility] * ??Date of exam 20230522 * ??I believe a reinterpretation of this exam may alter care of Patient. Yes TECHNIQUE: CT of the chest was obtained without intravenous contrast also performed at the [facility] also performed on May 22, 2023. ?? CT of the abdomen with intravenous contrast was performed at the [facility] on May 22, 2023. ??Helical CT images [...] evaluation of the mediastinum, and vascular structures. Director Post Images: Noncontributory. CT OF THE CHEST: Pulmonary [...] of outside imaging study * Sending Institution [facility] * Date of exam [id number] * I believe a reinterpretation of this exam may alter care of Patient.Yes TECHNIQUE: CT of the chest was obtained without intravenous contrastalso performed at the [facility] also performed onMay 22, 2023. CT [facility] the [facility] Hel[facility] CT imagesof [...] limits evaluation of themediastinum, and vascular structures. Director Post Images: Noncontributory. CT OF THE CHEST: Pulmonary [...] pancreatic duct is dilated, with a maximal yzkkezvc92 mm within the pancreatic neck. Vascular involvement: [...] patients who have questions please contactthe health dog day care attendant that requested your imaging first. Electronically signed by: Rafael Ansari DO, [facility]([phone]), at 06/18/2023 9:36 AM Cl Hess MD IMG OUTSIDE INTERPRE TATION ORDERABLES documented in this encounter Visit Diagnoses Diagnosis Malignant neoplasm of head of pancreas documented in this encounter Care Teams Wildlife Conservation Officer Relationship Specialty Start Date End Date Alo Carey DO [address] [place] [address] [place] [phone] PCP - General Internal Medicine 08/31/20 07/03/23 documented as of this encounter
--- OUTSIDE RECORDS SUMMARY | 2024-03-12 10:55 | XMS_ITS | Encounter Summary ---
Author Organization [facility] [place] [address] Care Team Providers Care Supervisor Dials Name Role Phone Alo Carey DO Primary Care Provider [phone] Encounter Details Date Type Department Care Team [...] TH Visit (TeleHealth) Radiation Oncology at [address] [phone] Ping Moore PA [facility] HEMATOLOGY [place] [address] 03/26/2024 9:30 AM EST Office Visit Hematology/Oncology at [address] [phone] [address] HEMATOLOGY AND ONCOLOGY [place], [place] [phone] 03/26/2024 9:30 AM EST Infusion Hematology Oncology at [address] [phone] 04/09/2024 9:30 AM EST Office Visit Hematology/Oncology at [address] [phone] Cl Hess MD [facility] [place] [address] [address] HEMATOLOGY AND ONCOLOGY [place], [place] [address] 04/09/2024 10:00 AM EST Infusion Hematology Oncology at [address] [phone] 04/23/2024 9:30 AM EST Office Visit Hematology/Oncology at [address] [phone] Cl Hess MD [facility] [place] [address] Yess[address] Renee [address] HEMATOLOGY [place] [address] 04/23/2024 10:00 AM EST Infusion Hematology Oncology at [address] [phone] 05/18/2024 4:30 PM EDT TH Visit (TeleHealth) [place] [address] Malachi Rothman MD [facility] [place] [address] documented as of this encounter Visit Diagnoses Not on filedocumented in this encounter Care Teams Supervisor Dials Relationship Specialty Start Date End Date Alo Carey DO [address] [place] [address] [place] [phone] PCP - General Internal Medicine 08/31/20 07/03/23 documented as of this encounter
--- OUTSIDE RECORDS SUMMARY | 2024-03-12 10:55 | XMS_ITS | Encounter Summary ---
[place] [address] Care Team Providers Care Jigmaker Name Role Phone YungAlo santiago Primary Care Provider [phone] Encounter Details Date Type Department Care Team (Latest Contact Info) Description 06/19/2023 4:31 PM EDT - 06/19/2023 11:59 PM EDT Hospital [place] [phone] Discharge Disposition: Home Social History Tobacco Use [...] 20 mg by mouth daily. 05/20/2023 omega 7-itm-pkh-fish oil 250-350-1,000 mg Capsule Take 1,000 mg [...] (E.C.) Take 81 mg by mouth daily. lisndk-hagvnzxw-eitz ase (Creon 24) 24,000-76,000 -120,000 unit capsuleIndications:M [...] TH Visit (TeleHealth) Radiation Oncology at [address] [phone] Ping Moore PA [facility] [place] [address] 03/26/2024 9:30 AM EST Office Visit Hematology/Oncology at [address] [phone] Yessi Renee APRN [address] [place] [address] [place] [address] 03/26/2024 9:30 AM EST Infusion Hematology Oncology at [address] [phone] 04/09/2024 9:30 AM EST Office Visit Hematology/Oncology at [address] [phone] 94 Cl Hess MD [facility] [place] [address] HEMATOLOGY AND ONCOLOGY [place], [place] [phone] 04/09/2024 10:00 AM EST Infusion Hematology Oncology at [address] [phone] 04/23/2024 9:30 AM EST Office Visit Hematology/Oncology at [address] [phone] Cl Hess MD [facility] [place] [address] Yessi Renee, [address] [place] [address] 04/23/2024 10:00 AM EST Infusion Hematology Oncology at [address] [phone] 05/18/2024 4:30 PM EDT TH Visit (TeleHealth) [place] [address] Malachi Rothman MD [facility] [place] [address] documented as of this encounter Procedures Procedure Name Priority Date/Time Associated Diagnosis Comments NON-SCHOOL INSPECTOR FINAL REPORT Routine 06/19/2023 4:33 PM EDT SURGICAL PATHOLOGY REPORT Routine 06/19/2023 4:32 PM EDT documented in this encounter Results * (ABNORMAL) Non-Personnel And Payroll Technician Final Report (06/19/2023 4:33 PM EDT) Non-Personnel And Payroll Technician Final Report [id number] ? Location: [facility] The signing pathologist has (i) examined the relevant preparation(s) for the specimen(s) and (ii) rendered or confirmed the diagnosis(es). . ? Non-Personnel And Payroll Technician Final DIAGNOSIS Suspicious for Malignancy Electronically signed by: ?Kylee HIGHTOWER PhD, Kit Deutsch Verified: ??07/02/2023 16:32 ??Pathologist Performed at: ??-[facility] Dept. of Pathology, [place] [address] Yard Demurrage Clerk: Ilan Martinez MD, [facility], ??CLIA Certificate: [id number] DISCUSSION The specimen contains rare clusters of highly atypical epithelioid cells with macrocytosis and prominent nucleoli. ?? Cell block was examined. See note. Note: The findings are suspicious for adenocarcinoma. THIS RESULT REQUIRES PHYSICIAN/A.P.P. FOLLOW UP CLINICAL INFORMATION CONSULTATION CASE Source: ? Pancreas, head (EUS-guided FNA) Clinical History: ? Mass . Received 3 slide(s) labeled [id number] Received 0 block(s). Specimen collection date: ? 04/29/2023. Surgical consult slides also received. For the full text of the [facility] report(s), please refer to [facility] Tracking #: ? [id number] . Report to: [facility] [address] [place] [address] [phone] ext [phone](A) [facility] 06/19/2023 4:33 PM EDT Charu Balbuena MD PATHOLOGY/CYTOLOGY ORDERABLES [facility] [place] [address] * (ABNORMAL) Surgical Pathology Report (06/19/2023 4:32 PM EDT) Final Diagnosis [id number] ? Location: [facility] The signing pathologist has (i) examined the relevant preparation(s) for the specimen(s) and (ii) rendered or confirmed the diagnosis(es). . ?Surgical Pathology DIAGNOSIS CONSULTATION CASE Outside slide(s) labeled [id number], collection date 04/29/2023. A. Head of pancreas mass, biopsy: - Scant epithelium with marked atypia, suspicious for adenocarcinoma. Electronically signed by: ?Maged HIGHTOWER PhD, Li Verified: ??07/02/2023 14:29 ??Pathologist Performed at: ??-[facility] Dept. of Pathology, [place] [address] Yard Demurrage Clerk: Ilan Martinez MD, FCAP, ??CLIA Certificate: [id number] DISCUSSION The case was reviewed at the GI pathology consensus conference. THIS RESULT REQUIRES PHYSICIAN/A.P.P . FOLLOW UP SPECIMEN(S) SUBMITTED CONSULTATION CASE A - 2 slide(s) labeled [id number], collection date 04/29/2023. [id number] Cytology consult slides also received. CARBON COPY: [facility] [address] [place] [address] [phone] ext [phone] CLINICAL INFORMATION Head of ??pancreas mass. SPECIMEN PROCESSING [facility] (BOARDER MACHINE) pathology slide(s) are reviewed. Refer to Diagnosis and Specimen Submitted for specific case information. For the full text of the BOARDER MACHINE report(s) please refer to the Chart Review Media tab in the electronic health record (eDH).(A) 07/02/2023 2:29 PM EDT [facility] Consult Case 06/19/2023 4:32 PM EDT 06/19/2023 4:32 PM EDT Charu Balbuena MD PATHOLOGY/CYTOLOGY ORDERABLES Performing Organization Address City/State/[facility] Co de Phone Number [facility] [place] [address] documented in this encounter Visit Diagnoses Not on filedocumented in this encounter Care Teams Jigmaker Relationship Specialty Start Date End Date Alo Carey DO [address] [place] [address] [place] [phone] PCP - General Internal Medicine 08/31/20 07/03/23 documented as of this encounter
--- OUTSIDE RECORDS SUMMARY | 2024-03-12 10:55 | XMS_ITS | Encounter Summary ---
[place] [address] Care Team Providers Care Skull Chopper Name Role Phone Alo Carey Primary Care Provider [phone] Encounter Details Date Type Department Care Team (Late st Contact Info) Description 06/12/2023 Orders Only Hematology/Oncology at [address] [phone] Yessi Renee [address] [place] [address] Malignant neoplasm of head of pancreas; Pancreatic insufficiency Social History Tobacco Use Types Packs/Day Years Used Date Smoking Tobacco: Former Cigarettes 4 1 3 - 1992 Smokeless Tobacco: Never Alcohol Use Standard Drinks/Week Comments Yes 7 (1 standard drink = 0.6 oz pur e alcohol) [facility] Utilities Answer Date Recorded In the past 12 months has [employer] electric, gas, oil, or water company threatened [...] TH Visit (TeleHealth) Radiation Oncology at [address] [phone] Ping oMore PA [facility] DR HEMATOLOGY AND ONCOLOGY [place], [place] [phone] 03/26/2024 9:30 AM EST Office Visit Hematology/Oncology at [address] [phone] Yessi Renee APRN [address] [place] [address] DR [place] [address] 03/26/2024 9:30 AM EST Infusion Hematology Oncology at [address] [phone] 04/09/2024 9:30 AM EST Office Visit Hematology/Oncology at [address] [phone] Cl Hess MD [facility] [place] [address] [address] HEMATOLOGY AND ONCOLOGY [place], [place] [phone] 04/09/2024 10:00 AM EST Infusion Hematology Oncology at [address] [phone] 04/23/2024 9:30 AM EST Office Visit Hematology/Oncology at [address] [phone] Cl Hess MD [facility] [place] [address] [address] [place] [address] 04/23/2024 10:00 AM EST Infusion Hematology Oncology at [address] [phone] 05/18/2024 4:30 PM EDT TH Visit (TeleHealth) [place] [address] Malachi Rothman MD [facility] [place] [address] documented as of this encounter Visit Diagnoses Diagnosis Malignant neoplasm of head of pancreas Pancreatic insufficiency Other specified disease of pancreas documented in this encounter Care Teams Skull Chopper Relationship Specialty Start Date End Date Alo Carey DO [address] [place] [address] [place] [phone] PCP - General Internal Medicine 08/31/20 07/03/23 documented as of this encounter
--- OUTSIDE RECORDS SUMMARY | 2024-03-12 10:55 | XMS_ITS | Encounter Summary ---
[place] [address] Care Team Providers Care Miller Helper Distillery Name Role Phone YungAlo santiago Primary Care Provider [phone] Encounter Details Date Type Department Care Team (Latest Contact Info) Description 06/25/2023 2:45 PM EDT Laboratory Appointment Lab [address] [place] [address] Malignant neoplasm of prostate; Malignant neoplasm of head of pancreas Social History Tobacco Use Types Packs/Day Years Used Date Smoking Tobacco: Former Cigarettes 4 30 1 963 - 1993 Smokeless Tobacco: Never Alcohol Use Standard Drinks/Week Comments Yes 7 (1 standard drink = 0.6 oz pur e alcohol) [facility] Utilities Answer Date Recorded In [...] TH Visit (TeleHealth) Radiation Oncology at [address] [phone] Ping Moore PA [facility] DR [place] [address] 03/26/2024 9:30 AM EST Office Visit Hematology/Oncology at [address] [phone] Yessi Renee APRN [address] [place] [address] HEMATOLOGY AND ONCOLOGY [place], [place] [address] 03/26/2024 9:30 AM EST Infusion Hematology Oncology at [address] [phone] 04/09/2024 9:30 AM EST Office Visit Hematology/Oncology at [address] [phone] Cl Hess MD [facility] [place] [address] HEMATOLOGY AND ONCOLOGY [place], [place] [address] 04/09/2024 10:00 AM EST Infusion Hematology Oncology at [address] [phone] 04/23/2024 9:30 AM EST Office Visit Hematology/Oncology at [address] [phone] Cl Hess MD [facility] [place] [address] [address] HEMATOLOGY AND ONCOLOGY [place], [place] [address] 04/23/2024 10:00 AM EST Infusion Hematology Oncology at [address] [phone] 05/18/2024 4:30 PM EDT TH Visit (TeleHealth) [place] [address] Malachi Rothman MD [facility] [place] [address] documented as of this encounter Procedures Procedure [...] 2:37 PM EDT) Neutrophil % 80.7 % [facility] Neutrophil Absolute 6.46(H) 1.70 - 6.10 x10(3)/mc L [facility] Lymph % 10.8 % [facility] Lymphocytes Abs 0.9 0.9 - 3.2 x10(3)/mc L [facility] Monocyte % 8.0 % [facility] Monocyte Abs 0.6 0.3 - 0.9 x10(3)/mc L [facility] Eos % 0.1 % [facility] Eosinophils Abs 0.0 0.0 - 0.4 x10(3)/mc L [facility] Basophil % 0.2 % [facility] Baso Absolute 0.0 0.0 - 0.1 x10(3)/mc L [facility] Immature Gran % 0.20 % [facility] Comment: Immature granulocytes(IG's)percentage and absolute count will include metamyelocytes, myelocytes, and promyelocytes. Blood smears from CBCs yielding IG's will be scanned manually for concordance. If this scan disagrees with the automated IG or if promyelocytes are noted, a manual differential will be performed. Immature Gran Absolute 0.02 0.00 - 0.04 x10(3)/mc L [facility] Blood 06/25/2023 2:37 PM EDT 06/25/2023 2:43 PM EDT Narrative Resulting Agency Comment Spec In Lab Cl Hess MD HEMATOLOGY ORDERABLE S [facility] [place] [address] * (ABNORMAL) Hemogram (06/25/2023 2:37 PM EDT) White Blood Cell 8.0 4.0 - 9.5 x10(3)/[facility] Red Blood Cell 3.77(L) 4.58 - 5.54 x10(6)/mc L [facility] Hemoglobin 12.3(L) 13.7 - 16.5 g/dL [facility] Hematocrit 37.4(L) 40.5 - 48.5 % [facility] Mean Cell Volume 99.2(H) 82.9 - 93.1 fL [facility] Mean Cell Hemoglobin 32.6(H) 27.5 - 32.1 pg [facility] Mean Cell Hemoglobin Concentration 32.9 32.0 - 35.7 g/dL [facility] Platelet 188 145 - 357 x10(3)/mc L [facility] RDW Standard Deviation 53.6(H) 36.0 - 45.0 fL [facility] RDW coefficient of variation 14.6(H) 11.4 - 13.8 % [facility] Mean Platelet Volume 10.3 7.6 - 12.9 fL [facility] NRBC% auto 0.0 % [facility] NRBC Absolute 0.000 0.000 - 0.000 x10(3)/mc L [facility] Blood 06/25/2023 2:37 PM EDT 06/25/2023 2:43 PM EDT Narrative Resulting Agency Comment Spec In Lab Cl Hess MD HEMATOLOGY ORDERABLE S Performing Organization Address [facility] Co de Phone Number [facility] [place] [address] * PGx Oncology (06/25/2023 2:37 PM EDT) Blood VENOUS BLOOD SPECIMEN / Unknown 06/25/2023 2:37 PM EDT 06/26/2023 8:27 AM EDT Narrative Resulting Agency Comment Spec In Lab Cl Hess MD MOLECULAR ORDERABLES Performing Organization Address [facility] Co de Phone Number [facility] [place] [address] * (ABNORMAL) Comprehensive metabolic panel (non-fasting) (06/25/2023 2:37 PM EDT) Glucose 410(H) 65 - 199 mg/dL [facility] Comment:Diabetes: >=200 mg/d L plus symptoms Blood Urea Nitrogen 19 10 - 20 mg/dL [facility] Creatinine 0.66(L) 0.80 - 1.50 mg/dL [facility] Sodium 135 135 - 145 mmol/L [facility] Potassium 4.0 3.5 - 5.0 mmol/L [facility] Comment: Please note: ??Patients with WBC >100,000 may have falsely elevated Potassium levels. ??For accurate Potassium quantification in these patients send serum separator tube (gold top) for subsequent determinations. ??Contact the Clinical Chemistry Laboratory if there are any questions. Chloride 96(L) 98 - 107 mmol/L [facility] Carbon Dioxide 25 22 - 31 mmol/L [facility] Anion Gap 14 5 - 15 mmol/L [facility] Calcium 9.3 8.5 - 10.5 mg/dL [facility] Protein, Total 6.4 6.1 - 8.0 g/dL [facility] Albumin 4.0 3.2 - 5.2 g/dL [facility] Aspartate Aminotransferase 122(H) 0 - 39 unit/L [facility] Alanine Aminotransferase 200(H) 0 - 55 unit/L [facility] Alkaline Phosphatase 303(H) 40 - 130 unit/L [facility] Bilirubin, Total 2.0(H) 0.2 - 1.3 mg/dL [facility] Est Glomerular Filtration Rate 98 >=60 mL/min/1. 73 m?? [facility] Comment: This patient's estimated GFR [...] In Lab Cl Hess MD CHEMISTRY ORDERABLES [facility] [place] [address] * (ABNORMAL) Carbohydrate Antigen 19-9 (06/25/2023 2:37 PM EDT) CA 19-9 390.0(H) <=35.0 u/ml [facility] Comment: This result was generated using a Danni Lita immunoassay. ??Results obtained from other methods or manufacturers cannot be used interchangeably with this method. Blood 06/25/2023 2:37 PM EDT 06/25/2023 2:43 PM EDT Narrative Resulting Agency Comment Spec In Lab Cl Hess MD CHEMISTRY ORDERABLES Performing Organization Address [facility] de Phone Number [facility] [place] [address] * PSA (Ultrasensitive) (06/25/2023 2:37 PM EDT) [facility] Prostate Specific Antigen (Ultrasensitive) 0.09 0.00 - 4.00 ng/mL [facility] Comment: PLEASE NOTE: The above reference interval is intended for healthy males with an intact prostate. Values within this reference interval may indicate recurrence in men who have undergone radical prostatectomy. This result was generated using a [employer] immunoassay. ??Results obtained from other methods or manufacturers cannot be used interchangeably with this method. Blood 06/25/2023 2:37 PM EDT 06/25/2023 2:43 PM EDT Narrative Resulting Agency Comment Spec In Lab Bela Charles APRN CHEMISTRY ORDERABLES Performing Organization Address [facility] de Phone Number [facility] [place] [address] * Testosterone, total (06/25/2023 2:37 PM EDT) [facility] Testosterone 2.12 1.93 - 7.40 ng/mL [facility] Comment: Pediatric Reference Ranges: ? [...] Stated reference ranges derived from review of [employer] Testosterone II 01/2022, v2.0 Blood 06/25/2023 2:37 PM EDT 06/25/2023 2:43 PM EDT Narrative Resulting Agency Comment Spec In Lab Bela Charles WEAVER HAND CHEMISTRY ORDERABLES Performing Organization Address [facility]/State/ZIP Co de Phone Number [facility] [place] [address] documented in this encounter Visit Diagnoses Diagnosis Malignant neoplasm of prostate Malignant neoplasm of head of pancreas documented in this encounter Care Teams Miller [employer] Relationship Specialty Start Date End Date Alo Carey DO [address] [place] [address] [place] [address] PCP - General Internal Medicine 08/31/20 07/03/23 documented as of this encounter
--- OUTSIDE RECORDS SUMMARY | 2024-03-12 10:55 | XMS_ITS | Encounter Summary ---
Author Organization [facility] [place] [address] Care Team Providers Care Industrial Maintenance Mechanic Name Role Phone Alo Carey DO Primary Care Provider [phone] Encounter Details Date Type Department Care Team (Late st Contact Info) Description 05/22/2023 Ancillary Procedure Radiology Library at [facility] [place] [address] Charu Balbuena MD [facility] [place] [address] Social History Tobacco Use Types Packs/Day Years [...] EST TH Visit (TeleHealth) Radiation Oncology at [address] [phone] Ping Moore PA [facility] DR HEMATOLOGY [place] [address] 03/26/2024 9:30 AM EST Office Visit Hematology/Oncology at [address] [phone] [address] HEMATOLOGY AND ONCOLOGY [place], [place] [address] 03/26/2024 9:30 AM EST Infusion Hematology Oncology at [address] [phone] 04/09/2024 9:30 AM EST Office Visit Hematology/Oncology at [address] [phone] Cl Hess MD [facility] [place] [address] HEMATOLOGY AND ONCOLOGY [place], [place] [phone] 04/09/2024 10:00 AM EST Infusion Hematology Oncology at [address] [phone] 04/23/2024 9:30 AM EST Office Visit Hematology/Oncology at [address] [phone] Cl Hess MD [facility] [place] [address] [address] HEMATOLOGY AND ONCOLOGY [place], [place] [address] 04/23/2024 10:00 AM EST Infusion Hematology Oncology at [address] [phone] 05/18/2024 4:30 PM EDT TH Visit (TeleHealth) [place] [address] Malachi Rothman MD [facility] [place] [address] documented as of this encounter Procedures Procedure Name Priority Date/Time Associated Diagnosis Comments FILM LIBRARY STORAGE ONLY CT CHEST ABDOMEN PELVIS Routine 05/22/2023 12:00 AM EDT documented in this encounter Results * Film Library- Storage Only CT Chest Abdomen Pelvis (05/22/2023 12:00 AM EDT) Narrative [facility] - 06/17/2023 2:54 PM EDT This exam is auto-finalizing. It's purpose is for storage only. Charu Balbuena MD IMG FILM LIBRARY O RDERABLES [place], [place] documented in this encounter Visit Diagnoses Not on filedocumented in this encounter Care Teams Industrial Maintenance Mechanic Relationship Specialty Start Date End Date Alo Carey DO [address] [place] [address] [place] [phone] PCP - General Internal Medicine 08/31/20 07/03/23 documented as of this encounter
--- OUTSIDE RECORDS SUMMARY | 2024-03-12 10:55 | XMS_ITS | Encounter Summary ---
Author Organization [place] [address] Care Team Providers Care Surface Water Manager Name Role Phone Alo Carey Primary Care Provider [phone] Encounter Details Date Type Department Care Team (Latest Contact Info) Description 06/18/2023 Multidisciplinary Ca re Committee [place]emat[place] [phone] Cl Hess MD [facility] [place] [address] Malignant neoplasm of head of pancreas Social History Tobacco Use Types Packs/Day Years Used Date Smoking Tobacco: Former Cigarettes 4 30 1 - 1992 Smokeless Tobacco: Never Alcohol Use Standard Drinks/Week Comments Yes 7 (1 standard drink = 0.6 oz pur e alcohol) [facility] Utilities Answer Date Recorded In the past 12 months has [employer], gas, oil, or water company threatened [...] was recommended but not performed. While in [facility], he presented with chest pain and [...] TH Visit (TeleHealth) Radiation Oncology at [address] [phone] Ping Moore PA [facility] DR HEMATOLOGY [place] [address] 03/26/2024 9:30 AM EST Office Visit Hematology/Oncology at [address] [phone] [address] HEMATOLOGY AND ONCOLOGY [place], [place] [address] 03/26/2024 9:30 AM EST Infusion Hematology Oncology at [address] [phone] 04/09/2024 9:30 AM EST Office Visit Hematology/Oncology at [address] [phone] Cl Hess MD [facility] [place] [address] [address] HEMATOLOGY AND ONCOLOGY [place], [place] [phone] 04/09/2024 10:00 AM EST Infusion Hematology Oncology at [address] [phone] 04/23/2024 9:30 AM EST Office Visit Hematology/Oncology at [address] [phone] Cl Hess MD [facility] [place] [address] [address] [place] [address] 04/23/2024 10:00 AM EST Infusion Hematology Oncology at [address] [phone] 05/18/2024 4:30 PM EDT TH Visit (TeleHealth) [place] [address] Malachi Rothman MD [facility] [place] [address] documented as of this encounter Results * [...] who have questions please contact the health insurance healthcare representative that requested your imaging first. [...] of outside imaging study * ??Sending Institution [facility]ly [facility] * ??Date of exam [id number] * ??I believe a reinterpretation of this exam may alter care of Patient. Yes TECHNIQUE: CT of the chest was obtained without intravenous contrast also performed at the [facility] also performed on May 22, 2023. ?? CT of the abdomen with intravenous contrast was performed at the [facility] on May 22, 2023. ??Helical CT [...] evaluation of the mediastinum, and vascular structures. Winding Inspector And Tester Images: Noncontributory. CT OF THE CHEST: Pulmonary [...] of outside imaging study * Sending Institution [facility] * Date of exam [id number] * I believe a reinterpretation of this exam may alter care of Patient.Yes TECHNIQUE: CT of the chest was obtained without intravenous contrastalso performed at the [facility] also performed onMay 22, 2023. CT [facility] Helical [...] limits evaluation of themediastinum, and vascular structures. Winding Inspector And Tester Images: Noncontributory. CT OF THE CHEST: Pulmonary [...] pancreatic duct is dilated, with a maximal [id number] mm within the pancreatic neck. Vascular involvement: [...] patients who have questions please contactthe health insurance healthcare representative that requested your imaging first. 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
--- OUTSIDE RECORDS SUMMARY | 2024-03-12 10:55 | XMS_ITS | Encounter Summary ---
[place] [address] Care Team Providers Care Pullman Conductor Name Role Phone Alo Carey Primary Care Provider [phone] Encounter Details Date Type Department Care Team [...] Recorded In the past 12 months has [employer], gas, oil, or water company threatened [...] TH Visit (TeleHealth) Radiation Oncology at [address] [phone] Ping Moore PA [facility] DR [place] [address] 03/26/2024 9:30 AM EST Office Visit Hematology/Oncology at [address] [phone] Yessi Renee APRN [address] [place] [address] HEMATOLOGY AND ONCOLOGY [place], [place] [phone] 03/26/2024 9:30 AM EST Infusion Hematology Oncology at [address] [phone] 04/09/2024 9:30 AM EST Office Visit Hematology/Oncology at [address] [phone] Cl Hess MD [facility] [place] [address] [address] HEMATOLOGY [place] [address] 04/09/2024 10:00 AM EST Infusion Hematology Oncology at [address] [phone] 04/23/2024 9:30 AM EST Office Visit Hematology/Oncology at [address] [phone] Cl Hess MD [facility] [place] [address] [address] HEMATOLOGY [place] [address] 04/23/2024 10:00 AM EST Infusion Hematology Oncology at [address] [phone] 05/18/2024 4:30 PM EDT TH Visit (TeleHealth) [place] [address] Malachi Rothman MD [facility] [place] [address] documented as of this encounter Visit Diagnoses Not on filedocumented in this encounter Care Teams Pullman Conductor Relationship Specialty Start Date End Date Alo Carey DO [address] [place] [address] [place] [address] PCP - General Internal Medicine 08/31/20 07/03/23 documented as of this encounter
--- OUTSIDE RECORDS SUMMARY | 2024-03-12 10:55 | XMS_ITS | Encounter Summary ---
Author Organization [place] [address] Care Team Providers Care Financial Manager Name Role Phone Alo Carey DO Primary Care Provider [phone] Reason for Referral * Diagnostic Test (Routine) - Closed Specialty Diagnoses / Procedures Referred By Marques livingston Referred To Contact Diagnoses Symptomatic stenosis of both carotid arteries Procedures Carotid Duplex, Bilateral Basim Barr MD [facility] [place] [address] [facility] [address] [place] [address] Referral ID Status Reason Start Date Expiration Date V isits Requested Visits Authorized [id number] Closed Specialty Service Requested 10/23/2022 11/26/2023 1 1 Encounter Details Date Type Department Care Team (Late st Contact Info) Description 10/12/2022 10:45 AM EDT Office Visit [place] [address] Basim Barr MD [facility] [address] Symptomatic stenosis of both carotid arteries Social [...] stenosis following CEA. Outside CTA from [facility] reviewed and shows a high grade [...] left eye. He has not seen an tubing mill operator in some time. reports that he quit [...] NIGHT, Disp: 30 capsule, Rfl: PRN omega 1-wev-pnj-fish oil 250-350-1,000 mg Capsule, Take 1,000 mg [...] during vascular procedure at [facility] in [place]: shaking Has tolerated MRI [...] EST TH Visit (TeleHealth) Radiation Oncology at [address] [phone] Ping Moore PA [facility] DR HEMATOLOGY [place] [address] 03/26/2024 9:30 AM EST Office Visit Hematology/Oncology at [address] [phone] Yessi Renee APRN [address] [place] [address] DR HEMATOLOGY AND ONCOLOGY [place], [place] [address] 03/26/2024 9:30 AM EST Infusion Hematology Oncology at [address] [phone] 04/09/2024 9:30 AM EST Office Visit Hematology/Oncology at [address] [phone] Cl Hess MD [facility] [place] [address] [address] HEMATOLOGY AND ONCOLOGY [place], [place] [phone] 04/09/2024 10:00 AM EST Infusion Hematology Oncology at [address] [phone] 04/23/2024 9:30 AM EST Office Visit Hematology/Oncology at [address] [phone] Cl Hess MD [facility] [place] [address] [address] HEMATOLOGY AND ONCOLOGY [place], [place] [phone] 04/23/2024 10:00 AM EST Infusion Hematology Oncology at [address] [phone] 05/18/2024 4:30 PM EDT TH Visit (TeleHealth) [place]iation [place] [address] Malachi Rothman MD [facility] [place] [address] documented as of this encounter Results * Carotid Duplex, Bilateral (10/11/2023 9:30 AM EDT) VB Text Report Department: Vascular Surgery Lab Patient: [id number] (THA JARRETT) CPT: 58097 Referring Physician: BASIM BARR ?? Indications:Rig ht [...] arteries documented in this encounter Care Teams Financial Manager Relationship Specialty Start Date End Date Alo Carey DO [address] [place] [address] [place] [address] PCP - General Internal Medicine 08/31/20 07/03/23 documented as of this encounter
--- OUTSIDE RECORDS SUMMARY | 2024-03-12 10:55 | XMS_ITS | Encounter Summary ---
[place] [address] Care Team Providers Care Fusion Operator Name Role Phone YungAlo santiago Primary Care Provider [phone] Encounter Details Date Type Department Care Team (Late st Contact Info) Description 07/01/2023 Telephone [place] [address] Larisa Wilkerson, RN Social History Tobacco Use [...] - 07/01/2023 1:05 PM EDT Per OR solid waste landfill technician Rocío, patient was asked to stop his Farxlga today for his upcoming surgery. documented in this encounter Plan of Treatment Upcoming Encounters Date Type Department Care Team (Late st Contact Info) Description 03/24/2024 9:00 AM EST TH Visit (TeleHealth) Radiation Oncology at [address] [phone] Ping Moore PA [facility] HEMATOLOGY [place] [address] 03/26/2024 9:30 AM EST Office Visit Hematology/Oncology at [address] [phone] [address] HEMATOLOGY [place] [address] 03/26/2024 9:30 AM EST Infusion Hematology Oncology at [address] [phone] 04/09/2024 9:30 AM EST Office Visit Hematology/Oncology at [address] [phone] Cl Hess MD [facility] [place] [address] [address] HEMATOLOGY AND ONCOLOGY [place], [place] [address] [phone] 04/09/2024 10:00 AM EST Infusion Hematology Oncology at [address] [phone] 04/23/2024 9:30 AM EST Office Visit Hematology/Oncology at [address] [phone] Cl Hess MD [facility] [place] [address] [address] HEMATOLOGY [place] [address] 04/23/2024 10:00 AM EST Infusion Hematology Oncology at [address] [phone] 05/18/2024 4:30 PM EDT TH Visit (TeleHealth) [place] [address] Malachi Rothman MD [facility] [place] [address] documented as of this encounter Visit Diagnoses Not on filedocumented in this encounter Care Teams Fusion Operator Relationship Specialty Start Date End Date Alo Carey DO [address] [place] [address] [place] [phone] PCP - General Internal Medicine 08/31/20 07/03/23 documented as of this encounter
--- OUTSIDE RECORDS SUMMARY | 2024-03-12 10:56 | XMS_ITS | Encounter Summary ---
[place] [address] Care Team Providers Care Work Manager Name Role Phone YungAlo santiago Primary Care Provider [phone] Reason for Visit * Reason Comments Medication Refill Encounter Details Date Type Department Care Team (Late Contact Info) Description 04/09/2022 Refill Radiation Oncology at [address] [phone] Bigg Peters MD [address] [place] [address] [place] [address] Malignant neoplasm of prostate Social [...] (TeleHealth) Radiation Oncology at [address] [phone] Ping Moore PA [facility] HEMATOLOGY [place] [address] 03/26/2024 9:30 AM EST Office Visit Hematology/Oncology at [address] [phone] [address] HEMATOLOGY AND ONCOLOGY [place], [place] [phone] 03/26/2024 9:30 AM EST Infusion Hematology Oncology at [address] [phone] 04/09/2024 9:30 AM EST Office Visit Hematology/Oncology at [address] [phone] Cl Hess MD [facility] [place] [address] [address] HEMATOLOGY AND ONCOLOGY [place], [place] [phone] 04/09/2024 10:00 AM EST Infusion Hematology Oncology at [address] [phone] 04/23/2024 9:30 AM EST Office Visit Hematology/Oncology at [address] [phone] Cl Hess MD [facility] [place] [address] [address] HEMATOLOGY AND ONCOLOGY [place], [place] [address] 04/23/2024 10:00 AM EST Infusion Hematology Oncology at [address] [phone] 05/18/2024 4:30 PM EDT TH Visit (TeleHealth) Radiation [place]cology [place] [address] Malachi Rothman MD [facility] [place] [address] documented as of this encounter Visit Diagnoses Diagnosis Malignant neoplasm of prostate documented in this encounter Care Teams Work Manager Relationship Specialty Start Date End Date Alo Carey DO [address] [place] [address] [place] [address] PCP - General Internal Medicine 08/31/20 07/03/23 documented as of this encounter
--- OUTSIDE RECORDS SUMMARY | 2024-03-12 10:56 | XMS_ITS | Encounter Summary ---
[place] [address] Care Team Providers Care Soaker Name Role Phone YungAlo santiago Primary Care Provider [phone] Reason for Visit * Reason Comments Medication Refill Encounter Details Date Type Department Care Team (Late Contact Info) Description 12/22/2021 Refill Radiation Oncology at [address] [phone] Bigg Peters MD [address] [place] [address] [place] [address] Malignant neoplasm of prostate Social [...] TH Visit (TeleHealth) Radiation Oncology at [address] [phone] Ping Moore PA [facility] HEMATOLOGY [place] [address] 03/26/2024 9:30 AM EST Office Visit Hematology/Oncology at [address] [phone] [address] HEMATOLOGY AND ONCOLOGY [place], [place] [phone] 03/26/2024 9:30 AM EST Infusion Hematology Oncology at [address] [phone] 04/09/2024 9:30 AM EST Office Visit Hematology/Oncology at [address] [phone] Cl Hess MD [facility] [place] [address] [address] HEMATOLOGY AND ONCOLOGY [place], [place] [phone] 04/09/2024 10:00 AM EST Infusion Hematology Oncology at [address] [phone] 04/23/2024 9:30 AM EST Office Visit Hematology/Oncology at [address] [phone] Cl Hess MD [facility] [place] [address] [address] HEMATOLOGY AND ONCOLOGY [place], [place] [address] 04/23/2024 10:00 AM EST Infusion Hematology Oncology at [address] [phone] 05/18/2024 4:30 PM EDT TH Visit (TeleHealth) [place] [address] Malachi Rothman MD [facility] [place] [address] documented as of this encounter Visit Diagnoses Diagnosis Malignant neoplasm of prostate documented in this encounter Care Teams Soaker Relationship Specialty Start Date End Date Alo Carey DO [address] [place] [address] [place] [address] PCP - General Internal Medicine 08/31/20 07/03/23 documented as of this encounter
--- OUTSIDE RECORDS SUMMARY | 2024-03-12 10:56 | XMS_ITS | Encounter Summary ---
Author Organization [facility] Address [facility] [place] [address] Care Team Providers Care Real Estate Listing Consultant Name Role Phone Cherry Alo Lon RUTHERFORD Primary Care Provider [phone] Reason for Referral * Home Health Care (Routine) - Closed Specialty Diagnoses / Procedures Referred By Marques livingston Referred To Contact Diagnoses Status post total replacement of right hip Ismael Wu MD [facility] [place] [address] Formerly [facility] & [address] [address] Referral ID Status Reason Start Date Expiration Date V isits Requested Visits Authorized [id number] Closed Consult, Test & Treat 11/18/2021 05/17/2022 999 999 Reason for Visit * Auth/Cert Specialty Diagnoses / Procedures Referred By Marques livingston Referred To Contact Diagnoses S/P total hip arthroplasty right hip OA Procedures PRO TOTAL HIP ARTHROPLASTY TOTAL HIP ARTHROPLASTY - POSTERIOR (WRVU 20.72) MODIFIER ACTIS HIP STEM DEPUY MODIFIER PINNACLE ACETABULUM DEPUY Ismael Wu MD [facility] [place] [address] [facility] Referral ID Status Reason Start Date Expiration Date Visits Re quested Visits Authorized [id number] 1 1 Encounter Details Date Type Department Care Team (Latest Contact Info) Description 11/17/2021 11:32 AM EDT - 11/18/2021 3:50 PM EDT Hospital Encounter 3 [place] [id number] Ismael Wu MD [facility] [place] [address] Status post total replacement of right hip [...] Wero Sadler Patient Age: 71 y.o. Language: Azeri Race: White Ethnicity: Not nor Admit date: 11/17/2021 Discharge date and time: 11/18/2021 Attending Physician: Ismael Wu MD Discharge Physician: Ismael Wu MD Follow-up Recommendations for Providers: See discharge instructions for additional details. Future Appointments Date Time Provider Department Center 12/22/2021 9:15 AM [facility] DX ROOM 3 MH Xray [facility] Rad 12/22/2021 10:00 AM Ismael Wu MD [facility] ORTH 3C [facility] Inpatient Provider Contact Information: Ismael Wu MD Orthopedics: [phone] After hours and weekends, call [facility] Machine Fur Cleaner, , and have the Orthopedic resident paged. [...] Resident Procedure(s): TOTAL HIP ARTHROPLASTY - POSTERIOR (VU 20.72) MODIFIER ACTIS HIP STEM DEPUY MODIFIER [...] Weight: Wt Readings from Last 1 Encounters: 09/21/ 106.3 kg (234 lb 6.4 oz) Height: [...] a dye used during vascular procedure at [facility] in [place]: shaking Has tolerated MRI and CT contrast. Immunizations Given this Hospitalization: Immunization History Administered Date(s) Administered ??? Influenza PF, Split (High Dose) 11/21/2020 ??? Moderna Covid-19 (Mainframe Applications Developer 100mcg) Vaccine 05/20/2020, 06/21/2020, 01/01/2021 ??? Td, [...] concerns regarding this plan, please contact our dental billing specialist at [phone]. Your catheter will stay in until your [...] bowel movement. You can also take an jhhg-vas-wxskqlu medication, Miralax if needed to combat constipation. [...] as much as possible. Call your doctor ([phone]) if you develop: 1. Fever greater than 100.5 2. Severe nausea or vomiting 3. Increasing pain that is not controlled by pain medications 4. Increasing redness, swelling, or drainage from incisions 5. Change in sensation FOLLOW-UP APPOINTMENTS: 1. You will have follow-up appointments at [facility] as indicated below in Future Appointment and Orders. 2. You will need to have x-rays prior to your follow-up appointment on 12/22. Please come to Radiology, desk , 1 hour BEFORE that appointment for these x-rays. Future Appointments Date Time Provider Department Center 12/22/2021 9:15 AM [facility] DX ROOM 3 MH Xray [facility] Rad 12/22/2021 10:00 AM Ismael Wu MD [facility] ORTH [address] [place] [address] If you have questions or concerns: Saturday through Saturday, 8 AM - 5 PM, please call Dr. Ismael Wu MD's office at . If it is after 5 PM, the weekend, or holidays, please call and ask to speak with theOrthopedic resident on-call. General Instructions None Future Appointments and Orders Future Appointments and Orders Future Appointments Provider Department Dept Phone 12/22/2021 9:15 AM [facility] DX ROOM 3 XRay at [facility] Arrive at: [facility] [phone] Please go to [facility] ([facility] Location). 12/22/2021 10:00 AM Ismael Wu MD Orthopaedics at [facility] Arrive at: [facility] [phone] Future Orders Complete By Expires Referral to Home Health [REF34 Custom] As directed Process Instructions: If no progress note charted, please enter Clinical details in comments. Scheduling Instructions: Comments: Please evaluate Wero Sadler for admission to Home Health. [address] [facility] [phone] (home) Date of : 1950 Inpatient DOCUMENTATION FOR VNA SERVICES (INCLUDING THOSE PATIENTS WITH MEDICARE COVERAGE REQUIRING HOME VNA SERVICES AND/OR HOSPICE SERVICES) Wero Sadler Discharge to own home: [address] [facility] [address] (home) Telephone Information: Tool Lathe Operator's Name: Wero In discussion with the attending physician, it is certified that this patient is under their care and that they, or a nurse practitioner, clinical nurse specialist or physician's psychology assistant who is working directly with them, [...] for services as follows: Home Health Agency: [facility] [address] [place] [id number] Home care orders for Total Hip Replacements: [...] be obtained from this patient's PCP: Alo Carey, [address] [place] [address] All A agencies which cover the area of patient's residence have been reviewed, either verbally alberto writing, and patient/family have chosen the home health care agency as noted for home services. Questions: Disciplines Requested: Nursing Physical Therapy Occupational Therapy Primary Care Provider: Alo Carey DO [phone] Discharge References/Attachments None documented in this encounter [...] concerns regarding this plan, please contact our dental billing specialist at [phone]. Your catheter will stay in until your [...] bowel movement. You can also take an vcsd-bnd-rybycab medication, Miralax if needed to combat constipation. [...] as much as possible. Call your doctor ([phone]) if you develop: Fever greater than 100.5 Severe nausea or vomiting Increasing pain that is not controlled by pain medications Increasing redness, swelling, or drainage from incisions Change in sensation FOLLOW-UP APPOINTMENTS: 1. You will have follow-up appointments at [facility] as indicated below in Future Appointment and Orders. 2. You will need to have x-rays prior to your follow-up appointment on 12/22. Please come to Radiology, desk 3T, 1 hour BEFORE that appointment for these x-rays. Future Appointments Date Time Provider Department Center 12/22/2021 9:15 AM [facility] DX ROOM 3 MH Xray [facility] Rad 12/22/2021 10:00 AM Ismael Wu MD [facility] ORTH [address] [place] [address] If you have questions or concerns: Saturday through Saturday, 8 AM - 5 PM, please call Dr. Ismael Wu MD's office at . If it is after 5 PM, the weekend, or holidays, please call and ask to speak with theOrthopedic resident on-call. documented in this encounter Medications at Time of Discharge Medication Sig Dispensed Refills Start Date End Date omega 8-qhl-nij-fish oil 250-350-1,000 mg Capsule Take 1,000 mg [...] ??? Colon adenocarcinoma 2009 recieved chemo in [place] ??? Coronary artery disease ??? Coronary artery [...] OR SUBCLAVIAN) (WRVU 9.19) performed by Basim aBrr MD at [facility] MAIN OR ??? PRO LASER VAPORIZATION SURGERY PROSTATE, COMPLETE Midline 02/02/2021 CYSTO, LASER TURP (WRVU 12.15) performed by Cayetano Engle MD at [facility] MAIN OR ??? PRO PLACE TRANSCATHETER STENT, CCA W EMBOLIC PROECT Right 07/14/2021 @TRANSCATH INTRAVASCULAR STENT,CAROTID,PERC,W\EMBOLIC PROT. (WRVU 18) performed by Basim Barr MD at [facility] MAIN OR ??? PRO TOTAL HIP ARTHROPLASTY Left 10/10/2020 TOTAL HIP ARTHROPLASTY - POSTERIOR (WRVU 20.72) performed by Ismael Wu MD at [facility] MAIN OR Social History: Patient lives [...] he returns home ([facility] Toileting: Transfer: Anticipate supervision [...] 50.11% limited in ADL performance per the [facility]. However, despite the deficits listed above patient demonstrates the ability to complete all ADLs and functional mobility at an overall supervision- Geovanyn level. Patient and significant other comfortable discharging [...] Minutes, Occupational Therapy: 31 (Low Complexity Eval [id number]) 2017 OT Evaluation Code Rationale: ?? Diagnosis [...] functional outcome. Ping El OT 11/18/2021 Pager: [phone] Occupational Therapy Rehabilitation Department * Nimisha Mahoney PT - 11/18/2021 10:45 AM EDT Physical [...] 9.19) performed by Basim Barr MD at [facility] MAIN OR ??? PRO LASER VAPORIZATION SURGERY PROSTATE, COMPLETE Midline 02/02/2021 CYSTO, LASER TURP (WRVU 12.15) performed by Cayetano Engle MD at [facility] MAIN OR ??? PRO PLACE TRANSCATHETER STENT, CCA W EMBOLIC PROECT Right 07/14/2021 @TRANSCATH INTRAVASCULAR STENT,CAROTID,PERC,W\EMBOLIC PROT. (WRVU 18) performed by Basim Barr MD at [facility] MAIN OR ??? PRO TOTAL HIP ARTHROPLASTY Left 10/10/2020 TOTAL HIP ARTHROPLASTY - POSTERIOR (WRVU 20.72) performed by Ismael Wu MD at [facility] MAIN OR Social History: Wero lives [...] low complexity eval Nimisha Mahoney, PT Pager: [phone] Physical Therapy Inpatient Rehabilitation Department * Slim Smallwood MD - 11/18/2021 5:52 AM EDT ORTHOPAEDIC SURGERY INPATIENT PROGRESS NOTE Patient Name: Wero Sadler Age: 71 y.o. Surgery/Issue: Right Total Hip Arthroplasty Attending: Dr. Bryce Date of surgery: 11/17/2021 SUBJECTIVE / INTERVAL [...] Ophthalmic Prep) 5 % ophthalmic solution ??? RXanqihkwev-TNEALHQyjvl-zwuAISznf-ketorolac (LISANDRA) (2.46 mg-0.005 mg-0.0008 mg-0.3 mg/mL) cb-articular [...] Time Provider Department Center 12/22/2021 9:15 AM [facility] DX ROOM 3 MH Xray [facility] Rad 12/22/2021 10:00 AM Ismael Wu MD [facility] ORTH 3C [facility] * Floridalma Barron RN - 11/17/2021 9:35 [...] urine drained. 1914: Report called to [address] [place]. * Cayetano Sena MD - [...] 4 mg ??? lactated ringers infusion ??? MMvdcvrcfvl-RESPKZNbyir-zcvWZOcen-ketorolac (LISANDRA) (2.46 mg-0.005 mg-0.0008 mg-0.3 mg/mL) cb-articular [...] Time Provider Department Center 12/22/2021 9:15 AM [facility] DX ROOM 3 MH Xray [facility] Rad 12/22/2021 10:00 AM Ismael Wu MD [facility] ORTH 3C [facility] documented in this encounter H&P Notes * [...] with right hip DJD pended for right JIIM. I discussed with the patient the risks, [...] Wu MD, MSc Division of Adult Reconstructive Patent Prosecution ParalegalEdger Hand of Orthopaedics Department of Orthopaedics [facility] [phone] [email or web address] documented in this encounter Procedure Notes * [...] COVID test: Lab Results Component Value Date [id number] Not Detected 07/19/2021 Past medical History: Past Medical History: Diagnosis Date ??? 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 can not read. can see shadows. No vision in left eye since child saavedra accident. ??? Cancer prostate, colorectal ??? Claudication ??? Colon adenocarcinoma 2009 recieved chemo in [place] ??? Coronary artery disease ??? Coronary artery [...] surrogate would be surrogate decision maker per [place] surrogate decision making law. (Only good for 180 days) Any patient receiving care in [place] must abide by [place] law. The hierarchy for surrogate decision making [...] (i) The agent with financial power of senior trial attorney or a conservator appointed in accordance [...] wheelchair - manual Home Address confirmed as: [address] [place] [phone] Social & Family Supports: All names listed below confirmed with patient as current and correct Extended Emergency Contact Information Primary Emergency Contact: SAKINAAMY Frey Address: [address] [place] [address] [facility] Relation: Significant Other Secondary [...] Yes (AARP) ; Prescription Coverage: Preferred Pharmacy: [id number] - [place], [place] - [address] [facility] [address] [facility] [address] [phone] [facility] [address] [facility] [address] [place] Status: Patient is a : No Primary Care Provider: Alo Carey DO [phone] Patient/Caregiver Goals of Treatment: return home when medically ready for discharge Potential Needs for Transition of Care: home health care Agency Referrals: I have met with the patient to: ?? discuss discharge planning needs. ?? provide the [facility], Office of Care Management letter from the Adhesive Bonding Machine Operator pertaining to rehabreferrals. ?? provide a letter describing our affiliations within the [facility] and educate about their right to choose where referrals are sent. ?? provide a list of Home Health Agencies / Durable Medical Equipment vendors which serve their preferred geographic area. ?? provided patient with [facility] Star Quality Rating handout. They [facility] [address] [place] [address] Note routed to a Billet Sawyer who will communicate referrals to facilities and [...] of care planning. 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 No acute events overnight. Will continue [...] assist with ADL's Surveillance [continuous indirect monitoring]: Rafalo, Purposeful Rounding, Nurse Knowledge Exchange Patient-specific fall prevention interventions for sensory deficits provided, if applicable: Yes- glasses, pt is blind * Op Note - Ismael Wu MD - 11/17/2021 2:05 PM EDT [facility] Operative Note Patient Name: Wero Sadler : [id number] MR#: [id number] Case Date: 11/17/2021 Surgeon: Surgeon(s) and Role: * Ismael Wu MD - Primary * Slim Smallwood MD - Resident Preoperative Diagnosis: Osteoarthritis right Hip Postoperative Diagnosis: Same Procedure Performed: right Total Hip Arthroplasty (CPT code 17775) Anesthesia: Spinal IVF: See anesthesia report Estimated [...] of full thickness cartilage loss. IMPLANTS: System: Mindscoreuy Femoral Stem: Actis high offset, Size 7; collared, SCOTT coated Acetabulum: [place] Sector Gription size 60mm; x2 6.5mm cancellous screws Liner: 60 x 36mm neutral liner Femoral Head: 36mm +8.5mm ceramic head (Please also see the Surgical Encounter Summary for any Implant and Specimen details pertinent to this patient.) Implant Summary in EHR: Implant Name Type Inv. Item Serial No. Front Desk Manager Lot No. LRB No. Used Action SHELL ACET HIP 60MM POR CTD MULTI HOLE TI PINNACLE GRIPTION ([id number]) (AUTOREQ) - [id number] IMPLANTS SHELL ACET HIP 60MM POR CTD MULTI HOLE TI PINNACLE GRIPTION ([id number]) (AutoReq) [employer] [facility] DARIAN [id number] Right 1 Implanted LINER ACET HIP [id number] STND POLY PINNACLE ALTRX ([id number]) (AUTOREQ) - [id number] IMPLANTS LINER ACET HIP [id number] STND POLY PINNACLE ALTRX ([id number]) (AutoReq) [place] [facility] DARIAN [id number] Right 1 Implanted SCREW HIP ACET 6.5X25MM FT CANC HEX DRV TI PINNACLE ([id number]) (AUTOREQ) - [id number] IMPLANTS SCREWHIP ACET 6.5X25MM FT CANC HEX DRV TI PINNACLE ([id number]) (AutoReq) ADE Over[employer] [facility] DARIAN [id number] Right 1 Implanted SCREW HIP ACET 6.5X20MM FT CANC HEX DRV TI PINNACLE ([id number]) (AUTOREQ) - [id number] IMPLANTS SCREWHIP ACET 6.5X20MM FT CANC HEX DRV TI PINNACLE ([id number]) (AutoReq) DAE Over[employer] [facility] DARIAN [id number] Right 1 Implanted STEM FEMORAL HIP SZ 7 PROX 12/14 TAPER POR CLLR HIGH OFST TI ([id number]) (AUTOREQ) - [id number] IMPLANTS STEM FEMORAL HIP SZ 7 PROX 12/14 TAPER POR CLLR HIGH OFST TI ([id number]) (AutoReq) [place] [facility] DARIAN [id number] Right 1 Implanted HEAD FEMORAL HIP 36MM +8.5MM OFFSET 12/14 TPR CERAMIC ([id number]) (AUTOREQ) - [id number] IMPLANTS HEAD FEMORAL HIP 36MM +8.5MM OFFSET 12/14 TPR CERAMIC ([id number]) (AutoReq) [place] [facility] DARIAN [id number] Right 1 Implanted PATIENT HISTORY and INDICATIONS [...] ??? Colon adenocarcinoma 2008 recieved chemo in [place] ??? Coronary artery disease ??? Coronary artery [...] and found to be appropriate with good latter-day of leg length and offset. A intraoperative x ray was taken and confirmed appropriate sizing and positioning of implants along with proper latter-day of leg length and offset. The hip [...] patient was then awoken, transferred to the [facility] and taken to the PACU [...] closing). Ismael Wu MD 11/17/2021 If the psychology assistant surgeon is other than a qualified resident, I certify that the services were medically necessary and there was no qualified resident available to perform the services. documented in this encounter Plan of Treatment Upcoming Encounters Date Type Department Care Team (Late st Contact Info) Description 03/24/2024 9:00 AM EST TH Visit (TeleHealth) Radiation Oncology at [address] [phone] Ping Moore PA [facility] [place] [address] 03/26/2024 9:30 AM EST Office Visit Hematology/Oncology at [address] [phone] [address] Renee [address] HEMATOLOGY AND ONCOLOGY [place], [place] [phone] 03/26/2024 9:30 AM EST Infusion Hematology Oncology at [address] [phone] 04/09/2024 9:30 AM EST Office Visit Hematology/Oncology at [address] [phone] Cl Hess MD [facility] [place] [address] [address]e [address] HEMATOLOGY AND ONCOLOGY [place], [place] [phone] 04/09/2024 10:00 AM EST Infusion Hematology Oncology at [address] [phone] 04/23/2024 9:30 AM EST Office Visit Hematology/Oncology at [address] [phone] Cl Hess MD [facility] [place] [address] Yessi Renee APRN [address] [place] [address] [place] [address] 04/23/2024 10:00 AM EST Infusion Hematology Oncology at [address] [phone] 05/18/2024 4:30 PM EDT TH Visit (TeleHealth) [place] [address] Malachi Rothman MD [facility] [place] [address] Scheduled Referrals Name Type Priority Associated Diagnoses [...] leg pain Arthroplasty Acetabular/Prox Fem Prostc Agrft/Algrft (47170) 11/17/2021 1:37 PM EDT Primary osteoarthritis of [...] * POCT Glucose (11/18/2021 11:52 AM EDT) [facility] Glucose, POC 182 65 - 199 mg/dL [facility] Comment: Supplemental ranges: <140 mg/dL before meals <180 mg/dL all other times of the day Blood 11/18/2021 11:5 2 AM EDT 11/18/2021 11:52 AM EDT Imsael Wu MD POINT OF CARE TEST ORDERABLES [facility] [place] [address] * POCT Glucose (11/18/2021 7:50 AM EDT) [facility] Glucose, POC 159 65 - 199 mg/dL [facility] Comment: Supplemental ranges: <140 mg/dL before meals <180 mg/dL all other times of the day Blood 11/18/2021 7:50 AM EDT 11/18/2021 7:50 AM EDT Ismael Wu MD POINT OF CARE TEST ORDERABLES Performing Organization Address [facility]/ZIP Co de Phone Number [facility] [place] [address] * (ABNORMAL) Differential, Automated (11/18/2021 3:20 AM EDT) [facility] Neutrophil % 86.1 % [facility] Neutrophil Absolute 8.17(H) 1.70 - 6.10 x10(3)/mc L [facility] Lymph % 6.9 % [facility] Lymphocytes Abs 0.7(L) 0.9 - 3.2 x10(3)/mc L [facility] Monocyte % 6.5 % [facility] Monocyte Abs 0.6 0.3 - 0.9 x10(3)/mc L [facility] Eos % 0.1 % [facility] Eosinophils Abs 0.0 0.0 - 0.4 x10(3)/mc L [facility] Basophil % 0.1 % [facility] Baso Absolute 0.0 0.0 - 0.1 x10(3)/mc L [facility] Immature Gran % 0.30 % [facility] Comment: Immature granulocytes(IG's)percentage and absolute count will include metamyelocytes, myelocytes, and promyelocytes. Blood smears from CBCs yielding IG's will be scanned manually for concordance. If this scan disagrees with the automated IG or if promyelocytes are noted, a manual differential will be performed. Immature Gran Absolute 0.03 0.00 - 0.04 x10(3)/ L [facility] Blood 11/18/2021 3:20 AM EDT 11/18/2021 3:40 AM EDT Narrative Resulting Agency Comment Spec In Lab Slim Smallwood MD HEMATOLOGY ORDERABLE S [facility] [place] [address] * (ABNORMAL) Hemogram (11/18/2021 3:20 AM EDT) White Blood Cell 9.5 4.0 - 9.5 x10(3)/ L [facility] Red Blood Cell 3.50(L) 4.58 - 5.54 x10(6)/[facility] Hemoglobin 11.1(L) 13.7 - 16.5 g/dL [facility] Hematocrit 33.0(L) 40.5 - 48.5 % [facility] Mean Cell Volume 94.3(H) 82.9 - 93.1 fL [facility] Mean Cell Hemoglobin 31.7 27.5 - 32.1 pg [facility] Mean Cell Hemoglobin Concentration 33.6 32.0 - 35.7 g/dL [facility] Platelet 178 145 - 357 x10(3)/ L [facility] RDW Standard Deviation 43.3 36.0 - 45.0 [facility] RDW coefficient of variation 12.6 11.4 - 13.8 % [facility] Mean Platelet Volume 10.1 7.6 - 12.9 [facility] LABORATORY NRBC% auto 0.0 % [facility] NRBC Absolute 0.000 0.000 - 0.000 x10(3)/ L [facility] Blood 11/18/2021 3:20 AM EDT 11/18/2021 3:40 AM EDT Narrative Resulting Agency Comment Spec In Lab Slim Smallwood MD HEMATOLOGY ORDERABLE S [facility] [place] [address] * (ABNORMAL) Basic Metabolic Panel (non-fasting) (11/18/2021 3:20 AM EDT) Glucose 200(H) 65 - 199 mg/dL [facility] Comment:Diabetes: >=200 mg/d L plus symptoms Blood Urea Nitrogen 15 10 - 20 mg/dL [facility] Creatinine 0.65(L) 0.80 - 1.50 mg/dL [facility] Sodium 139 135 - 145 mmol/L [facility] Potassium 4.0 3.5 - 5.0 mmol/L [facility] Comment: Please note: ??Patients with WBC >100,000 may have falsely elevated Potassium levels. ??For accurate Potassium quantification in these patients send serum separator tube (gold top) for subsequent determinations. ??Contact the Clinical Chemistry Laboratory if there are any questions. Chloride 104 98 - 107 mmol/L [facility] Carbon Dioxide 26 22 - 31 mmol/L [facility] Anion Gap 9 5 - 15 mmol/L [facility] Calcium 8.9 8.5 - 10.5 mg/dL [facility] Est Glomerular Filtration Rate 99 >=60 mL/min/1. 73 m?? [facility] Comment: This patient's estimated GFR [...] MD CHEMISTRY ORDERABLE S Performing Organization Address [facility]/ZIP Co de Phone Number [facility] [place] [address] * (ABNORMAL) POCT Glucose (11/18/2021 3:19 AM EDT) Glucose, POC 206(H) 65 - 199 mg/dL [facility] Comment: Supplemental ranges: <140 mg/dL before meals <180 mg/dL all other times of the day Blood 11/18/2021 3:19 AM EDT 11/18/2021 3:19 AM EDT Ismael Wu MD POINT OF CARE TEST ORDERABLES Performing Organization Address [facility] Co de Phone Number [facility] [place] [address] * (ABNORMAL) POCT Glucose (11/18/2021 12:05 AM EDT) Glucose, POC 239(H) 65 - 199 mg/dL [facility] Comment: Supplemental ranges: <140 mg/dL before meals <180 mg/dL all other times of the day Blood 11/18/2021 12:0 5 AM EDT 11/18/2021 12:05 AM EDT Ismael Wu MD POINT OF CARE TEST ORDERABLES Performing Organization Address [facility] Co de Phone Number [facility] [place] [address] * XR Pelvis (Generic) (11/17/2021 8:01 PM [...] director that requested your imaging first. ? Electronically signed by: Deidra Adams MD, [facility] ([phone]), at 11/18/2021 4:46 PM Narrative 11/18/2021 4:46 [...] first. Electronically signed by: Deidra Adams MD, [facility]([phone]), at 11/18/2021 4:46 PM Ismael Wu MD IMG DX ORDERABLES * (ABNORMAL) POCT Glucose (11/17/2021 7:43 PM EDT) Glucose, POC 216(H) 65 - 199 mg/dL [facility] Comment: Supplemental ranges: <140 mg/dL before meals <180 mg/dL all other times of the day Blood 11/17/2021 7:43 PM EDT 11/17/2021 7:43 PM EDT Ismael Wu MD POINT OF CARE TEST ORDERABLES Performing Organization Address City/[facility]/ZIP Co de Phone Number [facility] [place] [address] * POCT Glucose (11/17/2021 4:50 PM EDT) Glucose, POC 178 65 - 199 mg/dL [facility] Comment: Supplemental ranges: <140 mg/dL before meals <180 mg/dL all other times of the day Blood 11/17/2021 4:50 PM EDT 11/17/2021 4:50 PM EDT Ismael Wu MD POINT OF CARE TEST ORDERABLES [facility] [place] [address] * POCT Glucose (11/17/2021 1:14 PM EDT) Glucose, POC 134 65 - 199 mg/dL [facility] Comment: Supplemental ranges: <140 mg/dL before meals <180 mg/dL all other times of the day Blood 11/17/2021 1:14 PM EDT 11/17/2021 1:14 PM EDT Ismael Wu MD POINT OF CARE TEST ORDERABLES [facility] [place] [address] * Type and Screen Validity (11/17/2021 1:00 PM EDT) [facility] T&S only valid at [facility] Comment:This Type and Screen result is only valid at the [facility] Blood 11/17/2021 1:00 PM EDT 11/17/2021 1:05 PM EDT Narrative Resulting Agency Comment Spec In Lab Eros Foss MD BLOOD BANK LAB ORDER JOSE FRANCISCO [facility] [place] [address] * AB[facility] Recheck Status (11/17/2021 1:00 PM EDT) [facility] Type Recheck Completed [facility] Blood 11/17/2021 1:00 PM EDT 11/17/2021 1:05 PM EDT Narrative Resulting Agency Comment Spec In Lab Eros Foss MD BLOOD BANK LAB ORDER JOSE FRANCISCO [facility] [place] [address] * Antibody screen (11/17/2021 1:00 PM EDT) Ab Screen Interp Negative [facility] Expires at [id number] on: 11/20/2021 [facility] Blood 11/17/2021 1:00 PM EDT 11/17/2021 1:05 PM EDT Narrative Resulting Agency Comment Spec In Lab Eros Foss MD BLOOD BANK LAB ORDER JOSE FRANCISCO [facility] [place] [address] * ABO/Rh Typing (11/17/2021 1:00 PM EDT) Pathologist [facility] AB[facility]H Type O Pos [facility] Blood 11/17/2021 1:00 PM EDT 11/17/2021 1:05 PM EDT Narrative Resulting Agency Comment Spec In Lab Eros Foss MD BLOOD BANK LAB ORDER JOSE FRANCISCO Performing Organization Address City/[facility]/ZIP Co de Phone Number [facility] [place] [address] * (ABNORMAL) Hemogram (11/17/2021 1:00 PM EDT) [facility] White Blood Cell 3.4(L) 4.0 - 9.5 x10(3)/mc L [facility] Red Blood Cell 3.74(L) 4.58 - 5.54 x10(6)/mc L [facility] Hemoglobin 11.8(L) 13.7 - 16.5 g/dL [facility] Hematocrit 34.7(L) 40.5 - 48.5 % [facility] Mean Cell Volume 92.8 82.9 - 93.1 fL [facility] Mean Cell Hemoglobin 31.6 27.5 - 32.1 pg [facility] Mean Cell Hemoglobin Concentration 34.0 32.0 - 35.7 g/dL [facility] Platelet 159 145 - 357 x10(3)/mc L [facility] RDW Standard Deviation 43.9 36.0 - 45.0 fL [facility] RDW coefficient of variation 13.0 11.4 - 13.8 % [facility] Mean Platelet Volume 9.7 7.6 - 12.9 fL [facility] NRBC% auto 0.0 % [facility] NRBC Absolute 0.000 0.000 - 0.000 x10(3)/mc L [facility] Blood 11/17/2021 1:00 PM EDT 11/17/2021 1:10 PM EDT Narrative Resulting Agency Comment Spec In Lab Ismael Wu MD HEMATOLOGY ORDERABL ES [facility] [place] [address] * SCAN DOC: IMPLANTABLE DEVICES (11/17/2021 12:00 [...] Buccal, EVERY 30 MIN PRN, Starting on 11/17/21 at 2139, Until 11/18/21 at 1826, Low [...] Floridalma Barron RN) 0645 (Given - Provider: Floridalma Barron RN)1434 (Given - Provider: Mariana Villafuerte RN) amLODIPine (Norvasc) tablet 5 mg 5 mg, Oral, DAILY, First dose on 11/18/21 at 0900, Until Discontinued, hold if SBP<120, Routine 0905 (Not Given - Provider: Mariana Villafuerte RN - Reason: Patient/family refused - Comment: bp low) aspirin EC tablet 81 mg 81 mg, Oral, DAILY, First dose on Sat11/18/21 at 0900, Until Discontinued, Routine 903 (Given [...] Discontinued, hold if SBP<105 or HR<55, Routine 903 (Given - Provid er: Mariana [...] 2205 (Given - Provider: Floridalma Barron RN) 09 (Given - Provider: Mariana Villafuerte RN) folic acid (Folvite) tablet 1,000 mcg 1,000 mcg, Oral, DAILY, First dose on Sat11/18/21 at 0900, Until Discontinued, Routine 903 (Given [...] ONCE, 1 dose, On Sat11/17/21 at 2315 6386 (Given - Provider: Floridalma Barron RN) insulin [...] 220 (Given - Provider: Floridalma Barron RN) 0903 [...] 2200, Until Discontinued, Recovery (Recovery-Hospital Unit), Routine 2215 (Given - Provider: Floridalma Barron RN) 0910 (Given - Provider: Mariana Villafuerte RN) sodium chloride 0.9% 500 mL IV bolus (COMPLETED) Intravenous, ONCE, 1 dose, On 11/18/21 at 1315 1226 (New Bag - Provider: Mariana Villafuerte RN) tamsulosin (Flomax) capsule 0.4 mg 0.4 mg, Oral, NIGHTLY, First dose on Sat11/17/21 at 2200, Until Discontinued, DO NOT CRUSH OR OPEN, Routine 220 (Given - Provider: Floridalma Barron RN) timoloL [...] 0022 (Given - Provid er: Floridalma Barron, RN)0649 (Given - Provider: Floridalma Barron, AYE) lidocaine [...] Mathis RN) 015 (Given - Provider: Floridalma Barron, RN)1026 (Given - Provider: Mariana Villafuerte, AYE) [...] Alternative - Provider: Janki Mathis RN) 015 (See Alternative - Provider: Floridalma Barron, AYE)1026 (See Alternative - Provider: Mariana Villafuerte, AYE) oxyCODONE (Roxicodone) tablet 5 mg(Linked Group 5) 5 mg, Oral, EVERY 4 HOURS PRN, Starting on Sat11/17/21 at 1906, Until 11/18/21 at 1826, Pain, mild pain (1-3), May give additional 5 mg in 30 minutes once if pain not relieved., Routine 1912 (Given - Provider: Janki Mathis RN) 015 (See Alternative - Provider: Floridalma Barron, AYE)1026 (See Alternative - Provider: Mariana Villafuerte RN) povidone-iodine (Betadine Ophthalmic Prep) 5 % ophthalmic solution (CANCELED) ONCE PRN, Starting on Sat11/17/21 at 1407, Until 11/18/21 at 1826, Intra-Operative (Intra-Procedure), Routine 1407 (Given - Provider: Ismael Wu MD - Comment: added to 500ml NACL for irrigation) THbaxxtinfh-ZQGGKEXqpef-tr oNIDine-ketorolac (LISANDRA) (2.46 mg-0.005 mg-0.0008 mg-0.3 mg/mL) [...] Routine documented in this encounter Care Teams Real Estate Listing Consultant Relationship Specialty Start Date End Date Alo Carey DO [address] [place] [address] [place] [phone] PCP - General Internal Medicine 08/31/20 07/03/23 documented as of this encounter
--- OUTSIDE RECORDS SUMMARY | 2024-03-12 10:56 | XMS_ITS | Encounter Summary ---
[place] [address] Care Team Providers Care Vegetable Cook Name Role Phone YungAlo santiago Primary Care Provider [phone] Reason for Visit * Reason Comments Medication Refill Encounter Details Date Type Department Care Team (Late st Contact Info) Description 05/30/2022 Refill Radiation Oncology at [address] [phone] Alonso Peters MD [address] [place] [address] [place] [address] Malignant neoplasm of prostate Social [...] encounter Miscellaneous Notes * Addendum Note - Alonso Peters MD - 05/30/2022 4:47 PM EDTAddended by: ALONSO PETERS on: 05/30/2022 04:47 PM Modules accepted: Orders documented in this encounter Plan of Treatment Upcoming Encounters Date Type Department Care Team (Late st Contact Info) Description 03/24/2024 9:00 AM EST TH Visit (TeleHealth) Radiation Oncology at [address] [phone] Ping Moore PA [facility] DR [place]EMAT[place] [address] 03/26/2024 9:30 AM EST Office Visit Hematology/Oncology at [address] [phone] [address] HEMATOLOGY AND ONCOLOGY [place], [place] [phone] 03/26/2024 9:30 AM EST Infusion Hematology Oncology at [address] [phone] 04/09/2024 9:30 AM EST Office Visit Hematology/Oncology at [address] [phone] Cl Hess MD [facility] [place] [address] [address] HEMATOLOGY AND ONCOLOGY [place], [place] [phone] 04/09/2024 10:00 AM EST Infusion Hematology Oncology at [address] [phone] 04/23/2024 9:30 AM EST Office Visit Hematology/Oncology at [address] [phone] Cl Hess MD [facility] [place] [address] Yessi Renee APRN [address] [place] [address] DR HEMATOLOGY [place] [address] 04/23/2024 10:00 AM EST Infusion Hematology Oncology at [address] [phone] 05/18/2024 4:30 PM EDT TH Visit (TeleHealth) [place] [address] Malachi Rothman MD [facility] [place] [address] documented as of this encounter Visit Diagnoses Diagnosis Malignant neoplasm of prostate documented in this encounter Care Teams Vegetable Cook Relationship Specialty Start Date End Date Alo Carey DO [address] [place] [address] [place] [phone] PCP - General Internal Medicine 08/31/20 07/03/23 documented as of this encounter
--- OUTSIDE RECORDS SUMMARY | 2024-03-12 10:56 | XMS_ITS | Encounter Summary ---
Author [place] [address] Care Team Providers Care Heat Treat Technician Name Role Phone Alo Carey Primary Care Provider Reason for Visit * Reason Comments Medication Refill Encounter Details Date Type Department Care Team (Late Contact Info) Description 10/23/2021 Refill Radiation Oncology at [address] [phone] Bigg Peters MD [address] [place] [address] [place] [address] Social History Tobacco Use Types [...] TH Visit (TeleHealth) Radiation Oncology at [address] [phone] Ping Moore PA [facility] DR [place] [address] 03/26/2024 9:30 AM EST Office Visit Hematology/Oncology at [address] [phone] [address] HEMATOLOGY AND ONCOLOGY [place], [place] [phone] 03/26/2024 9:30 AM EST Infusion Hematology Oncology at [address] [phone] 04/09/2024 9:30 AM EST Office Visit Hematology/Oncology at [address] [phone] Cl Hess MD [facility] [address] [address] HEMATOLOGY AND ONCOLOGY [place], [place] [phone] 04/09/2024 10:00 AM EST Infusion Hematology Oncology at [address] [phone] 04/23/2024 9:30 AM EST Office Visit Hematology/Oncology at [address] [phone] Cl Hess MD [facility] [place] [address] [address] HEMATOLOGY AND ONCOLOGY [place], [place] [phone] 04/23/2024 10:00 AM EST Infusion Hematology Oncology at [address] [phone] 05/18/2024 4:30 PM EDT TH Visit (TeleHealth) [place] [address] Malachi Rothman MD [facility] [place] [address] documented as of this encounter Visit Diagnoses Not on filedocumented in this encounter Care Teams Heat Treat Technician Relationship Specialty Start Date End Date Alo Carey DO [address] [place] [address] [place] [address] PCP - General Internal Medicine 08/31/20 07/03/23 documented as of this encounter
--- OUTSIDE RECORDS SUMMARY | 2024-03-12 10:56 | XMS_ITS | Encounter Summary ---
[place] [address] Care Team Providers Care Machine Maintenance Servicer Name Role Phone YungAlo santiago Primary Care Provider [phone] Reason for Visit * Reason Comments Medication Refill Encounter Details Date Type Department Care Team (Late Contact Info) Description 07/29/2022 Refill Radiation Oncology at [address] [phone] Bigg Peters MD [address] [place] [address] [place] [address] Malignant neoplasm of prostate Social [...] TH Visit (TeleHealth) Radiation Oncology at [address] [phone] Ping Moore PA [facility] HEMATOLOGY [place] [address] 03/26/2024 9:30 AM EST Office Visit Hematology/Oncology at [address] [phone] [address] HEMATOLOGY AND ONCOLOGY [place], [place] [phone] 03/26/2024 9:30 AM EST Infusion Hematology Oncology at [address] [phone] 04/09/2024 9:30 AM EST Office Visit Hematology/Oncology at [address] [phone] Cl Hess MD [facility] [place] [address] [address] HEMATOLOGY AND ONCOLOGY [place], [place] [phone] 04/09/2024 10:00 AM EST Infusion Hematology Oncology at [address] [phone] 04/23/2024 9:30 AM EST Office Visit Hematology/Oncology at [address] [phone] Cl Hess MD [facility] [place] [address] HEMATOLOGY AND ONCOLOGY [place], [place] [address] 04/23/2024 10:00 AM EST Infusion Hematology Oncology at [address] [phone] 05/18/2024 4:30 PM EDT TH Visit (TeleHealth) [place] [address] Malachi Rothman MD [facility] [place] [address] documented as of this encounter Visit Diagnoses Diagnosis Malignant neoplasm of prostate documented in this encounter Care Teams Machine Maintenance Servicer Relationship Specialty Start Date End Date Alo Carey DO [address] [place] [address] [place] [address] PCP - General Internal Medicine 08/31/20 07/03/23 documented as of this encounter
--- OUTSIDE RECORDS SUMMARY | 2024-03-12 10:56 | XMS_ITS | Encounter Summary ---
[place] [address] Care Team Providers Care Jointer Machine Operator Name Role Phone YungAlo santiago Primary Care Provider [phone] Reason for Visit * Reason Comments Medication Refill Encounter Details Date Type Department Care Team (Late st Contact Info) Description 12/22/2021 Refill Radiation Oncology at [address] [phone] Bigg Peters MD [address] [place] [address] [place] [address] Malignant neoplasm of prostate Social [...] TH Visit (TeleHealth) Radiation Oncology at [address] [phone] Ping Moore PA [facility] DR HEMATOLOGY [place] [address] 03/26/2024 9:30 AM EST Office Visit Hematology/Oncology at [address] [phone] Yessi Renee APRN [address] [place] [address] DR HEMATOLOGY AND ONCOLOGY [place], [place] [phone] 03/26/2024 9:30 AM EST Infusion Hematology Oncology at [address] [phone] 04/09/2024 9:30 AM EST Office Visit Hematology/Oncology at [address] [phone] Cl Hess MD [facility] [place] [address] [address] [place] [address] 04/09/2024 10:00 AM EST Infusion Hematology Oncology at [address] [phone] 04/23/2024 9:30 AM EST Office Visit Hematology/Oncology at [address] [phone] Cl Hess MD [facility] [place] [address] [address] [place] [address] 04/23/2024 10:00 AM EST Infusion Hematology Oncology at [address] [phone] 05/18/2024 4:30 PM EDT TH Visit (TeleHealth) [place] [address] Malachi Rothman MD [facility] [place] [address] documented as of this encounter Visit Diagnoses Diagnosis Malignant neoplasm of prostate documented in this encounter Care Teams Jointer Machine Operator Relationship Specialty Start Date End Date Alo Carey DO [address] [place] [address] [place] [address] PCP - General Internal Medicine 08/31/20 07/03/23 documented as of this encounter
--- OUTSIDE RECORDS SUMMARY | 2024-03-12 10:56 | XMS_ITS | Encounter Summary ---
[place] [address] Care Team Providers Care Sprayer Leather Name Role Phone YungAlo santiago Primary Care Provider [phone] Encounter Details Date Type Department Care Team (Late st Contact Info) Description 04/10/2022 Telephone Radiation Oncology at [address] [phone] Nicole Bhatt RN Social History [...] 04/11/2022 3:55 PM EST Call placed to [facility] in [place], in regards to patients Lupron inj. and recent lab results. 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 Correct number to reach him is [phone]. Message left for his primary RN to [...] refill. He would like refill sent to [facility] in [place], [place] [address] and [facility]. He also mentioned that he had recent labs including PSA and HgbA1C done at [facility] by Dr. Hai Sewell (phone: [phone]) and was a bit surprised that we [...] you and send any necessary information to [facility]. ===View-only below this line=== documented in this encounter Plan of Treatment Upcoming Encounters Date Type Department Care Team (Late st Contact Info) Description 03/24/2024 9:00 AM EST TH Visit (TeleHealth) Radiation Oncology at [address] [phone] Ping Moore PA [facility] DR [place] [address] 03/26/2024 9:30 AM EST Office Visit Hematology/Oncology at [address] [phone] [address] HEMATOLOGY AND ONCOLOGY [place], [place] [phone] 03/26/2024 9:30 AM EST Infusion Hematology Oncology at [address] [phone] 04/09/2024 9:30 AM EST Office Visit Hematology/Oncology at [address] [phone] Cl Hess MD [facility] [place] [address] [address] HEMATOLOGY AND ONCOLOGY [place], [place] [phone] 04/09/2024 10:00 AM EST Infusion Hematology Oncology at [address] [phone] 04/23/2024 9:30 AM EST Office Visit Hematology/Oncology at [address] [phone] Cl Hess MD [facility] [place] [address] [address] HEMATOLOGY AND ONCOLOGY [place], [place] [phone] 04/23/2024 10:00 AM EST Infusion Hematology Oncology at [address] [phone] 05/18/2024 4:30 PM EDT TH Visit (TeleHealth) [place] [address] Malachi Rothman MD [facility] [place] [address] documented as of this encounter Visit Diagnoses Not on filedocumented in this encounter Care Teams Sprayer Leather Relationship Specialty Start Date End Date Alo Carey DO [address] [place] [address] [place] [address] PCP - General Internal Medicine 08/31/20 07/03/23 documented as of this encounter
--- OUTSIDE RECORDS SUMMARY | 2024-03-12 10:56 | XMS_ITS | Encounter Summary ---
Author Organization [place] [address] Care Team Providers Care Manager Transportation Name Role Phone Alo Carey DO Primary Care Provider [phone] Encounter Details Date Type Department Care Team (Late st Contact Info) Description 10/12/2021 Orders [place] [address] Ismael Wu MD [facility] [place] [address] Primary osteoarthritis of right hip Social History [...] TH Visit (TeleHealth) Radiation Oncology at [address] [phone] Ping Moore PA [facility] DR HEMATOLOGY [place] [address] 03/26/2024 9:30 AM EST Office Visit Hematology/Oncology at [address] [phone] [address] HEMATOLOGY AND ONCOLOGY [place], [place] [phone] 03/26/2024 9:30 AM EST Infusion Hematology Oncology at [address] [phone] 04/09/2024 9:30 AM EST Office Visit Hematology/Oncology at [address] [phone] Cl Hess MD [facility] [place] [address] [address] HEMATOLOGY AND ONCOLOGY [place], [place] [phone] 04/09/2024 10:00 AM EST Infusion Hematology Oncology at [address] [phone] 04/23/2024 9:30 AM EST Office Visit Hematology/Oncology at [address] [phone] Cl Hess MD [facility] [place] [address] Yess[address] Renee [address] HEMATOLOGY AND ONCOLOGY [place], [place] [phone] 04/23/2024 10:00 AM EST Infusion Hematology Oncology at [address] [phone] 05/18/2024 4:30 PM EDT TH Visit (TeleHealth) [place] [address] Malachi Rothman MD [facility] [place] [address] documented as of this encounter Visit Diagnoses Diagnosis Primary osteoarthritis of right hip Primary localized osteoarthrosis, pelvic region and thigh documented in this encounter Care Teams Manager Transportation Relationship Specialty Start Date End Date Alo Carey DO [address] [place] [address] [place] [address] PCP - General Internal Medicine 08/31/20 07/03/23 documented as of this encounter
--- OUTSIDE RECORDS SUMMARY | 2024-03-12 10:56 | XMS_ITS | Encounter Summary ---
[place] [address] Care Team Providers Care Ibm Websphere Commerce Developer Name Role Phone Alo Carey DO Primary Care Provider [phone] Reason for Visit * Auth/Cert Specialty Diagnoses / Procedures Referred By Marques livingston Referred To Contact Diagnoses S/P total hip arthroplasty right hip OA Procedures PRO TOTAL HIP ARTHROPLASTY TOTAL HIP ARTHROPLASTY - POSTERIOR (WRVU 20.72) MODIFIER ACTIS HIP STEM DEPUY MODIFIER PINNACLE ACETABULUM DEPUY Ismael Wu MD [facility] [place] [address] [facility] Referral ID Status Reason Start Date Expiration Date Visits Re quested Visits Authorized [id number] 1 1 Encounter Details Date Type Department Care Team (Late st Contact Info) Description 11/17/2021 1:00 PM EDT - 11/17/2021 4:45 PM EDT [place] [id number] Ismael Wu MD [facility] DR ORTHOPAEDIC SURGERY [place] [id number] TOTAL HIP ARTHROPLASTY - POSTERIOR (WRVU 19.6) [...] Wero Sadler Patient Age: 71 y.o. Language: Uzbek Race: White Ethnicity: Not nor Admit date: 11/17/2021 Discharge date and time: 11/18/2021 Attending Physician: Ismael Wu MD Discharge Physician: Ismael Wu MD Follow-up Recommendations for Providers: See discharge instructions for additional details. Future Appointments Date Time Provider Department Center 12/22/2021 9:[address] [facility] DX ROOM [address] [facility] Rad 12/22/2021 10:00 AM Ismael Wu MD [facility] ORTH 3C [facility] Inpatient Provider Contact Information: Ismael Wu MD Orthopedics: [phone] After hours and weekends, call [facility] Supervisor Machine Setter, , and have the Orthopedic resident paged. [...] during vascular procedure at [facility] in [place]: shaking Has tolerated MRI and CT contrast. Immunizations Given this Hospitalization: Immunization History Administered Date(s) Administered ??? Influenza PF, Split (High Dose) 11/21/2020 ??? Moderna Covid-19 (Nursery Attendant 100mcg) Vaccine 05/20/2020, 06/21/2020, 01/01/2021 ??? Td, [...] concerns regarding this plan, please contact our planner/scheduler at [phone]. Your catheter will stay in until your [...] bowel movement. You can also take an esed-xam-xtvxcfj medication, Miralax if needed to combat constipation. [...] as much as possible. Call your doctor ([phone]) if you develop: 1. Fever greater than 100.5 2. Severe nausea or vomiting 3. Increasing pain that is not controlled by pain medications 4. Increasing redness, swelling, or drainage from incisions 5. Change in sensation FOLLOW-UP APPOINTMENTS: 1. You will have follow-up appointments at [facility] as indicated below in Future Appointment and Orders. 2. You will need to have x-rays prior to your follow-up appointment on 12/22. Please come to Radiology, desk 3T, 1 hour BEFORE that appointment for these x-rays. Future Appointments Date Time Provider Department Center 12/22/2021 9:[address] [facility] DX ROOM [address] [facility] Rad 12/22/2021 10:00 AM Ismael Wu MD [facility] ORTH [address] [place] [address] If you have questions or concerns: Saturday through Saturday, 8 AM - 5 PM, please call Dr. Ismael Wu MD's office at . If it is after 5 PM, the weekend, or holidays, please call and ask to speak with theOrthopedic resident on-call. General Instructions None Future Appointments and Orders Future Appointments and Orders Future Appointments Provider Department Dept Phone 12/22/2021 9:[address] [facility] DX ROOM 3 XRay at [facility] Arrive at: Inlayer Area [phone] Please go to Inlayer Area ([facility]). 12/22/2021 10:00 AM Ismael Wu MD Orthopaedics at [facility] Arrive at: Inlayer Area [phone] Future Orders Complete By Expires Referral to Home Health [REF34 Custom] As directed Process Instructions: If no progress note charted, please enter Clinical details in comments. Scheduling Instructions: Comments: Please evaluate Wero Sadler for admission to Home Health. [address] [facility] [address] (home) Date of : 1950 Inpatient DOCUMENTATION FOR VNA SERVICES (INCLUDING THOSE PATIENTS WITH MEDICARE COVERAGE REQUIRING HOME VNA SERVICES AND/OR HOSPICE SERVICES) Wero Sadler Discharge to own home: [address] [facility] [address] (home) Telephone Information: Civil Cad Tech's Name: Wero In discussion with the attending physician, it is certified that this patient is under their care and that they, or a nurse practitioner, clinical nurse specialist or physician's assistant shift supervisor who is working directly with them, had [...] for services as follows: Home Health Agency: [facility] [address] [place] [phone] Home care orders for Total Hip Replacements: [...] this patient's PCP: Alo Carey DO [address] [place] [phone] All VNA agencies which cover the area of patient's residence have been reviewed, either verbally alberto writing, and patient/family have chosen the home health care agency as noted for home services. Questions: Disciplines Requested: Nursing Physical Therapy Occupational Therapy Primary Care Provider: Alo Carey DO [phone] Discharge References/Attachments None documented in this encounter [...] concerns regarding this plan, please contact our planner/scheduler at [phone]. Your catheter will stay in until your [...] bowel movement. You can also take an jzjm-nkl-efpzech medication, Miralax if needed to combat constipation. [...] as much as possible. Call your doctor ([phone]) if you develop: Fever greater than 100.5 Severe nausea or vomiting Increasing pain that is not controlled by pain medications Increasing redness, swelling, or drainage from incisions Change in sensation FOLLOW-UP APPOINTMENTS: 1. You will have follow-up appointments at [facility] as indicated below in Future Appointment and Orders. 2. You will need to have x-rays prior to your follow-up appointment on 12/22. Please come to Radiology, desk 3T, 1 hour BEFORE that appointment for these x-rays. Future Appointments Date Time Provider Department Center 12/22/2021 9:[address] [facility] DX ROOM [address] [facility] Rad 12/22/2021 10:00 AM Ismael Wu MD [facility] ORTH 3C [facility] If you have questions or concerns: Saturday through Saturday, 8 AM - 5 PM, please call Dr. Ismael Wu MD's office at . If it is after 5 PM, the weekend, or holidays, please call and ask to speak with theOrthopedic resident on-call. documented in this encounter Medications at Time of Discharge Medication Sig Dispensed Refills Start Date End Date omega 0-muy-pzg-fish oil 250-350-1,000 mg Capsule Take 1,000 mg [...] recieved chemo in [place] ??? Coronary artery disease ??? Coronary artery [...] 9.19) performed by Basim Barr MD at [facility] MAIN OR ??? PRO LASER VAPORIZATION SURGERY PROSTATE, COMPLETE Midline 02/02/2021 CYSTO, LASER TURP (WRVU 12.15) performed by Cayetano Engle MD at [facility] MAIN OR ??? PRO PLACE TRANSCATHETER STENT, CCA W EMBOLIC PROECT Right 07/14/2021 @TRANSCATH INTRAVASCULAR STENT,CAROTID,PERC,W\EMBOLIC PROT. (WRVU 18) performed by Basim Barr MD at [facility] MAIN OR ??? PRO TOTAL HIP ARTHROPLASTY Left 10/10/2020 TOTAL HIP ARTHROPLASTY - POSTERIOR (WRVU 20.72) performed by Ismael Wu MD at [facility] MAIN OR Social History: Patient lives [...] 50.11% limited in ADL performance per the [facility]. However, despite the deficits listed above [...] Minutes, Occupational Therapy: 31 (Low Complexity Eval [id number]) 2017 OT Evaluation Code Rationale: ?? Diagnosis [...] and measurable assessment of functional outcome. Ping El, OT 11/18/2021 Pager: [phone] Occupational Therapy Rehabilitation Department * Nimisha Mahoney [...] 9.19) performed by Basim Barr MD at [facility] MAIN OR ??? PRO LASER VAPORIZATION SURGERY PROSTATE, COMPLETE Midline 02/02/2021 CYSTO, LASER TURP (WRVU 12.15) performed by Cayetano Engle MD at [facility] MAIN OR ??? PRO PLACE TRANSCATHETER STENT, CCA W EMBOLIC PROECT Right 07/14/2021 @TRANSCATH INTRAVASCULAR STENT,CAROTID,PERC,W\EMBOLIC PROT. (WRVU 18) performed by Basim Barr MD at [facility] MAIN OR ??? PRO TOTAL HIP ARTHROPLASTY Left 10/10/2020 TOTAL HIP ARTHROPLASTY - POSTERIOR (WRVU 20.72) performed by Ismael Wu MD at [facility] MAIN OR Social History: Wero lives with [...] Code: (P) low complexity eval Nimisha Mahoney, MELVIN Pager: [phone] Physical Therapy Inpatient Rehabilitation Department * Slim Smallwood MD - 11/18/2021 5:52 AM EDT ORTHOPAEDIC SURGERY INPATIENT PROGRESS NOTE Patient Name: Wero Sadler Age: 71 y.o. Surgery/Issue: Right Total Hip Arthroplasty Attending: Dr. Wu Date of surgery: 11/17/2021 SUBJECTIVE / INTERVAL HISTORY: NAEYVES AbreuS Hgb 11.1. Unable to void in PACU, [...] Ophthalmic Prep) 5 % ophthalmic solution ??? EUnfsljbret-GEVYRUMoqwb-yvzUKQlzn-ketorolac (LISANDRA) (2.46 mg-0.005 mg-0.0008 mg-0.3 mg/mL) cb-articular [...] Mepilex Ag x7 days Drain: n/a Anticoagulation: CORNELIUS Study - Rivaroxaban 10 mg qAM for 30 days Antibiotics: periop ancef Consults: PT/OT Dispo: pending PT/OT eval Follow-up: as scheduled Slim Smallwood MD 11/18/2021 Future Appointments Date Time Provider Department Center 12/22/2021 9:[address] [facility] DX ROOM [address] [facility] Rad 12/22/2021 10:00 AM Ismael Wu MD [facility] ORTH 3C [facility] * Floridalma Barron RN - 11/17/2021 9:35 [...] 4 mg ??? lactated ringers infusion ??? USnsdfqofsw-IEACYXNlszn-xlhYIMsrl-ketorolac (LISANDRA) (2.46 mg-0.005 mg-0.0008 mg-0.3 mg/mL) cb-articular [...] Time Provider Department Center 12/22/2021 9:[address] [facility] DX ROOM [address] [facility] Rad 12/22/2021 10:00 AM Ismael Wu MD [facility] ORTH 3C [facility] documented in this encounter H&P Notes * [...] properly marked. Charleen Smallwood MD Orthopaedic Surgery [facility] Associated attestation - Ismael Wu MD [...] Wu MD, MSc Division of Adult Reconstructive Supervisor Nut ProcessingTechnology Adoption Manager of Orthopaedics Department of Orthopaedics [facility] [phone] [email or web address] documented in this encounter Procedure Notes [...] COVID test: Lab Results Component Value Date [id number] Not Detected 07/19/2021 Past medical History: Past Medical History: Diagnosis Date ??? 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 can not read. can see shadows. No vision in left eye since child saavedra accident. ??? Cancer prostate, colorectal ??? Claudication ??? Colon adenocarcinoma 2009 recieved chemo in [place] ??? Coronary artery disease ??? Coronary artery [...] surrogate would be surrogate decision maker per [place] decision [place] law. (Only good for 180 days) Any patient receiving care in [place] must abide by [place] law. The hierarchy for surrogate decision making [...] (i) The agent with financial power of criminal defense attorney or a conservator appointed in accordance [...] wheelchair - manual Home Address confirmed as: [address] [place] [phone] Social & Family Supports: All names listed below confirmed with patient as current and correct Extended Emergency Contact Information Primary Emergency Contact: SAKINAMING FreyNE Address: [address] [place] [phone] [facility] Mobile Relation: Significant Other Secondary Emergency [...] Yes (AARP) ; Prescription Coverage: Preferred Pharmacy: [facility] #[id number] - [place], [place] - [address] [facility] [address] [place] [address] [facility] [phone] [facility] - [place], [place] - [address] [facility] [place] [address] [facility] [address] [facility] [address] Status: Patient is a : No Primary Care Provider: Alo Carey DO [phone] Patient/Caregiver Goals of Treatment: return home when medically ready for discharge Potential Needs for Transition of Care: home health care Agency Referrals: I have met with the patient to: ?? discuss discharge planning needs. ?? provide the [facility], Office of Care Management letter from the Shot Core Drill Operator pertaining to rehabreferrals. ?? provide a letter describing our affiliations within the [facility] and educate about their right to choose where referrals are sent. ?? provide a list of Home Health Agencies / Durable Medical Equipment vendors which serve their preferred geographic area. ?? provided patient with [facility] Star Quality Rating handout. They have requested referrals to: [facility] [address] [place] [address] Note routed to a Oral Surgeon who will communicate referrals to facilities and [...] of care planning. Gissel SANTOS RN Phone: [phone] Pager: [phone] * Plan of Care - Floridalma Barron [...] stroke, per pt and L eye has supervisor long goods prosthesis. No acute events overnight. Will continue [...] Wu MD - 11/17/2021 2:05 PM EDT [facility] Operative Note Patient Name: Wero Sadler : [id number] MR#: [id number] Case Date: 11/17/2021 Surgeon: Surgeon(s) and Role: * Ismael Wu MD - Primary * Slim Smallwood MD - Resident Preoperative Diagnosis: Osteoarthritis right Hip Postoperative Diagnosis: Same Procedure Performed: right Total Hip Arthroplasty (CPT code 31716) Anesthesia: Spinal IVF: See anesthesia report Estimated [...] of full thickness cartilage loss. IMPLANTS: System: [id number] Femoral Stem: Actis high offset, Size 7; collared, SCOTT coated Acetabulum: [place] Sector Gription size 60mm; x2 6.5mm cancellous screws Liner: 60 x 36mm neutral liner Femoral Head: 36mm +8.5mm ceramic head (Please also see the Surgical Encounter Summary for any Implant and Specimen details pertinent to this patient.) Implant Summary in EHR: Implant Name Type Inv. Item Serial No. Knockdown Worker Lot No. LRB No. Used Action SHELL ACET HIP 60MM POR CTD MULTI HOLE TI PINNACLE GRIPTION ([id number]) (AUTOREQ) - [id number] IMPLANTS SHELL ACET HIP 60MM POR CTD MULTI HOLE TI PINNACLE GRIPTION ([id number]) (AutoReq) HelloTel DARIAN [id number] Right 1 Implanted LINER ACET HIP [id number] STND POLY PINNACLE ALTRX ([id number]) (AUTOREQ) - [id number] IMPLANTS LINER ACET HIP [id number] STND POLY PINNACLE ALTRX ([id number]) (AutoReq) Sweet Cred [facility] DARIAN [id number] Right 1 Implanted SCREW HIP ACET 6.5X25MM FT CANC HEX DRV TI PINNACLE ([id number]) (AUTOREQ) - [id number] IMPLANTS SCREWHIP ACET 6.5X25MM FT CANC HEX DRV TI PINNACLE ([id number]) (AutoReq) Sweet Cred DAE DARIAN [id number] Right 1 Implanted SCREW HIP ACET 6.5X20MM FT CANC HEX DRV TI PINNACLE ([id number]) (AUTOREQ) - [id number] IMPLANTS SCREWHIP ACET 6.5X20MM FT CANC HEX DRV TI PINNACLE ([id number]) (AutoReq) Netragon [facility] DARIAN [id number] Right 1 Implanted STEM FEMORAL HIP SZ 7 PROX 12/14 TAPER POR CLLR HIGH OFST TI ([id number]) (AUTOREQ) - [id number] IMPLANTS STEM FEMORAL HIP SZ 7 PROX 12/14 TAPER POR CLLR HIGH OFST TI ([id number]) (AutoReq) [employer]ragon [facility] DARIAN [id number] Right 1 Implanted HEAD FEMORAL HIP 36MM +8.5MM OFFSET 12/14 TPR CERAMIC ([id number]) (AUTOREQ) - [id number] IMPLANTS HEAD FEMORAL HIP 36MM +8.5MM OFFSET 12/14 TPR CERAMIC ([id number]) (AutoReq) Netragon [facility] DARIAN [id number] Right 1 Implanted PATIENT HISTORY and INDICATIONS [...] ??? Colon adenocarcinoma 2008 recieved chemo in [place] ??? Coronary artery disease ??? Coronary artery [...] and found to be appropriate with good yazidi of leg length and offset. A intraoperative x ray was taken and confirmed appropriate sizing and positioning of implants along with proper yazidi of leg length and offset. The hip [...] patient was then awoken, transferred to the orthopaedic hospital and taken to the PACU in [...] closing). Ismael Wu MD 11/17/2021 If the assistant shift supervisor surgeon is other than a qualified resident, I certify that the services were medically necessary and there was no qualified resident available to perform the services. documented in this encounter Plan of Treatment Upcoming Encounters Date Type Department Care Team (Late st Contact Info) Description 03/24/2024 9:00 AM EST TH Visit (TeleHealth) Radiation Oncology at [address] [phone] Ping Moore PA [facility] DR [place] [address] 03/26/2024 9:30 AM EST Office Visit Hematology/Oncology at [address] [phone] [address] HEMATOLOGY AND ONCOLOGY [place], [place] [address] [phone] 03/26/2024 9:30 AM EST Infusion Hematology Oncology at [address] [phone] 04/09/2024 9:30 AM EST Office Visit Hematology/Oncology at [address] [phone] Cl Hess MD [facility] [place] [address] [address] HEMATOLOGY AND ONCOLOGY [place], [place] [phone] 04/09/2024 10:00 AM EST Infusion Hematology Oncology at [address] [phone] 04/23/2024 9:30 AM EST Office Visit Hematology/Oncology at [address] [phone] Cl Hess MD [facility] [place] [address] [address]e [address] HEMATOLOGY AND ONCOLOGY [place], [place] [address] 04/23/2024 10:00 AM EST Infusion Hematology Oncology at [address] [phone] 05/18/2024 4:30 PM EDT TH Visit (TeleHealth) [place] [address] Malachi Rothman MD [facility] [place] [address] Scheduled Referrals Name Type Priority Associated Diagnoses [...] leg pain Arthroplasty Acetabular/Prox Fem Prostc Agrft/Algrft (05474) 11/17/2021 1:37 PM EDT Primary osteoarthritis of [...] Glucose, POC 182 65 - 199 mg/dL [facility] Comment: Supplemental ranges: <140 mg/dL before meals <180 mg/dL all other times of the day Blood 11/18/2021 11:5 2 AM EDT 11/18/2021 11:52 AM EDT Ismael Wu MD POINT OF CARE TEST ORDERABLES Performing Organization Address City/[facility] de Phone Number [facility] [place] [address] * POCT Glucose (11/18/2021 7:50 AM EDT) Glucose, POC 159 65 - 199 mg/dL [facility] Comment: Supplemental ranges: <140 mg/dL before meals <180 mg/dL all other times of the day Blood 11/18/2021 7:50 AM EDT 11/18/2021 7:50 AM EDT Ismael Wu MD POINT OF CARE TEST ORDERABLES [facility] [place] [address] * (ABNORMAL) Differential, Automated (11/18/2021 3:20 AM EDT) Neutrophil % 86.1 % [facility] Neutrophil Absolute 8.17(H) 1.70 - 6.10 x10(3)/mc L [facility] Lymph % 6.9 % [facility] Lymphocytes Abs 0.7(L) 0.9 - 3.2 x10(3)/mc L [facility] Monocyte % 6.5 % [facility] Monocyte Abs 0.6 0.3 - 0.9 x10(3)/ L [facility] Eos % 0.1 % [facility] Eosinophils Abs 0.0 0.0 - 0.4 x10(3)/[facility] Basophil % 0.1 % [facility] Baso Absolute 0.0 0.0 - 0.1 x10(3)/mc L [facility] Immature Gran % 0.30 % [facility] Comment: Immature granulocytes(IG's)percentage and absolute count will include metamyelocytes, myelocytes, and promyelocytes. Blood smears from CBCs yielding IG's will be scanned manually for concordance. If this scan disagrees with the automated IG or if promyelocytes are noted, a manual differential will be performed. Immature Gran Absolute 0.03 0.00 - 0.04 x10(3)/mc L [facility] Blood 11/18/2021 3:20 AM EDT 11/18/2021 3:40 AM EDT Narrative Resulting Agency Comment Spec In Lab Slim Smallwood MD HEMATOLOGY ORDERABLE S Performing Organization Address [facility]/ZIP Co de Phone Number [facility] [place] [address] * (ABNORMAL) Hemogram (11/18/2021 3:20 AM EDT) White Blood Cell 9.5 4.0 - 9.5 x10(3)/mc L [facility] Red Blood Cell 3.50(L) 4.58 - 5.54 x10(6)/mc L [facility] Hemoglobin 11.1(L) 13.7 - 16.5 g/dL [facility] Hematocrit 33.0(L) 40.5 - 48.5 % [facility] Mean Cell Volume 94.3(H) 82.9 - 93.1 fL [facility] Mean Cell Hemoglobin 31.7 27.5 - 32.1 pg [facility] Mean Cell Hemoglobin Concentration 33.6 32.0 - 35.7 g/dL [facility] Platelet 178 145 - 357 x10(3)/[facility] LABORATORY RDW Standard Deviation 43.3 36.0 - 45.0 [facility] LABORATORY RDW coefficient of variation 12.6 11.4 - 13.8 % [facility] Mean Platelet Volume 10.1 7.6 - 12.9 fL [facility] NRBC% auto 0.0 % [facility] NRBC Absolute 0.000 0.000 - 0.000 x10(3)/[facility] LABORATORY Blood 11/18/2021 3:20 AM EDT 11/18/2021 3:40 AM EDT Narrative Resulting Agency Comment Spec In Lab Slim Smallwood MD HEMATOLOGY ORDERABLE S [facility] [place] [address] * (ABNORMAL) Basic Metabolic Panel (non-fasting) (11/18/2021 3:20 AM EDT) Pathologist [facility] Glucose 200(H) 65 - 199 mg/dL [facility] Comment:Diabetes: >=200 mg/d L plus symptoms Blood Urea Nitrogen 15 10 - 20 mg/dL [facility] Creatinine 0.65(L) 0.80 - 1.50 mg/dL [facility] Sodium 139 135 - 145 mmol/L [facility] Potassium 4.0 3.5 - 5.0 mmol/L [facility] Comment: Please note: ??Patients with WBC >100,000 may have falsely elevated Potassium levels. ??For accurate Potassium quantification in these patients send serum separator tube (gold top) for subsequent determinations. ??Contact the Clinical Chemistry Laboratory if there are any questions. Chloride 104 98 - 107 mmol/L [facility] Carbon Dioxide 26 22 - 31 mmol/L [facility] Anion Gap 9 5 - 15 mmol/L [facility] Calcium 8.9 8.5 - 10.5 mg/dL [facility] Est Glomerular Filtration Rate 99 >=60 mL/min/1. 73 m?? [facility] Comment: This patient's [...] Lab Ismael Wu MD CHEMISTRY ORDERABLE S [facility] [place] [address] * (ABNORMAL) POCT Glucose (11/18/2021 3:19 AM EDT) Glucose, POC 206(H) 65 - 199 mg/dL [facility] Comment: Supplemental ranges: <140 mg/dL before meals <180 mg/dL all other times of the day Blood 11/18/2021 3:19 AM EDT 11/18/2021 3:19 AM EDT Ismael Wu MD POINT OF CARE TEST ORDERABLES Performing Organization Address [facility] de Phone Number [facility] [place] [address] * (ABNORMAL) POCT Glucose (11/18/2021 12:05 AM EDT) Glucose, POC 239(H) 65 - 199 mg/dL [facility] Comment: Supplemental ranges: <140 mg/dL before meals <180 mg/dL all other times of the day Blood 11/18/2021 12:0 5 AM EDT 11/18/2021 12:05 AM EDT Ismael Wu MD POINT OF CARE TEST ORDERABLES Performing Organization Address [facility] de Phone Number [facility] [place] [address] * XR Pelvis (Generic) (11/17/2021 8:01 PM [...] who have questions please contact the health hemodialysis patient care specialist that requested your imaging first. ? Electronically signed by: Deidra Adams MD, [facility] ([phone]), at 11/18/2021 4:46 PM Narrative 11/18/2021 4:46 [...] patients who have questions please contactthe health hemodialysis patient care specialist that requested your imaging first. Electronically signed by: Deidra Adams MD, [facility]([phone]), at 11/18/2021 4:46 PM Ismael Wu MD IMG DX ORDERABLES * (ABNORMAL) POCT Glucose (11/17/2021 7:43 PM EDT) Glucose, POC 216(H) 65 - 199 mg/dL [facility] Comment: Supplemental ranges: <140 mg/dL before meals <180 mg/dL all other times of the day Blood 11/17/2021 7:43 PM EDT 11/17/2021 7:43 PM EDT Ismael Wu MD POINT OF CARE TEST ORDERABLES [facility] [place] [address] * POCT Glucose (11/17/2021 4:50 PM EDT) Glucose, POC 178 65 - 199 mg/dL [facility] Comment: Supplemental ranges: <140 mg/dL before meals <180 mg/dL all other times of the day Blood 11/17/2021 4:50 PM EDT 11/17/2021 4:50 PM EDT Ismael Wu MD POINT OF CARE TEST ORDERABLES Performing Organization Address City/[facility]/ZIP Co de Phone Number [facility] [place] [address] * POCT Glucose (11/17/2021 1:14 PM EDT) Glucose, POC 134 65 - 199 mg/dL [facility] Comment: Supplemental ranges: <140 mg/dL before meals <180 mg/dL all other times of the day Blood 11/17/2021 1:14 PM EDT 11/17/2021 1:14 PM EDT Ismael Wu MD POINT OF CARE TEST ORDERABLES Performing Organization Address City/[facility]/ZIP Co de Phone Number [facility] [place] [address] * Type and Screen Validity (11/17/2021 1:00 PM EDT) T&S only valid at [facility] Comment:This Type and Screen result is only valid at the [facility] Blood 11/17/2021 1:00 PM EDT 11/17/2021 1:05 PM EDT Narrative Resulting Agency Comment Spec In Lab Eros Foss MD BLOOD BANK LAB ORDER JOSE FRANCISCO [facility] [place] [address] * ABORH Recheck Status (11/17/2021 1:00 PM EDT) ABORH Type Recheck Completed [facility] Blood 11/17/2021 1:00 PM EDT 11/17/2021 1:05 PM EDT Narrative Resulting Agency Comment Spec In Lab Eros Foss MD BLOOD BANK LAB ORDER JOSE FRANCISCO Performing Organization Address City/[facility]/ZIP Co de Phone Number [facility] [place] [address] * Antibody screen (11/17/2021 1:00 PM EDT) Ab Screen Interp Negative [facility] Expires at 2359 on: 11/20/2021 [facility] Blood 11/17/2021 1:00 PM EDT 11/17/2021 1:05 PM EDT Narrative Resulting Agency Comment Spec In Lab Eros Foss MD BLOOD BANK LAB ORDER JOSE FRANCISCO [facility] [place] [address] * ABO/Rh Typing (11/17/2021 1:00 PM EDT) ABORH Type O Pos [facility] Blood 11/17/2021 1:00 PM EDT 11/17/2021 1:05 PM EDT Narrative Resulting Agency Comment Spec In Lab Eros Foss MD BLOOD BANK LAB ORDER JOSE FRANCISCO [facility] [place] [address] * (ABNORMAL) Hemogram (11/17/2021 1:00 PM EDT) White Blood Cell 3.4(L) 4.0 - 9.5 x10(3)/mc L [facility] Red Blood Cell 3.74(L) 4.58 - 5.54 x10(6)/mc L [facility] Hemoglobin 11.8(L) 13.7 - 16.5 g/dL [facility] Hematocrit 34.7(L) 40.5 - 48.5 % [facility] Mean Cell Volume 92.8 82.9 - 93.1 fL [facility] Mean Cell Hemoglobin 31.6 27.5 - 32.1 pg [facility] Mean Cell Hemoglobin Concentration 34.0 32.0 - 35.7 g/dL [facility] Platelet 159 145 - 357 x10(3)/mc L [facility] RDW Standard Deviation 43.9 36.0 - 45.0 fL [facility] RDW coefficient of variation 13.0 11.4 - 13.8 % [facility] Mean Platelet Volume 9.7 7.6 - 12.9 fL [facility] NRBC% auto 0.0 % [facility] NRBC Absolute 0.000 0.000 - 0.000 x10(3)/mc L [facility] Blood 11/17/2021 1:00 PM EDT 11/17/2021 1:10 PM EDT Narrative Resulting Agency Comment Spec In Lab Ismael Wu MD HEMATOLOGY ORDERABL ES [facility] [place] [address] * SCAN DOC: IMPLANTABLE DEVICES (11/17/2021 12:00 [...] Oral, DAILY WITH BREAKFAST, First dose on Sat22 at 0800, Until Discontinued, Consider holding dose [...] PM EDT 30 mLs 19- Surgical Site TTolutgyzlb-QYHEHKGlsmz-hatN IDine-ketorolac (LISANDRA) (2.46 mg-0.005 mg-0.0008 mg-0.3 mg/mL) [...] on 11/18/21 at 0900, Until Discontinued, Routine 0904 (Given - Provid er: Mariana Villafuerte RN) atorvastatin (Lipitor) tablet 80 mg 80 mg, Oral, EVERY EVENING, First dose on Sat11/17/21 at 2200, Until Discontinued, Routine 2206 (Given - Provider: Floridalma Barron RN) carvediloL (Coreg) tablet 25 mg 25 mg, Oral, 2 TIMES DAILY WITH MEALS, First dose on 11/18/21 at 0800, Until Discontinued, hold if SBP<105 or HR<55, Routine 0904 (Given - Provid er: Mariana Villafuerte RN) ceFAZolin (Ancef) 2 g vial attach to sodium chloride 0.9% 100 mL Mini-Bag Plus (COMPLETED) 2 g, Intravenous, EVERY 8 HOURS, 3 doses, First dose on Sat11/17/21 at 1630, Last dose on 11/18/21 at 1400, Administer over 30 Minutes, Adjust [...] if BG less than 70 mg/dL., Routine 0903 (Given - Provid er: Mariana Villafuerte RN)1200 [...] Until Discontinued, DO NOT CRUSH OR OPEN 0905 (Given - Provid er: Mariana Villafuerte RN) [...] 2200, Until Discontinued, Recovery (Recovery-Hospital Unit), Routine 2214 (Given - Provider: Floridalma Barron RN) 0910 [...] Routine 0903 (Given - Provid er: Mariana Villafuerte, RN) Continuous Medication Order 11/16/2021 11/17/2021 11/18/2021 [...] Routine 0022 (Given - Provid er: Floridalma Barron RN)0649 (Given - Provider: Floridalma Barron RN) [...] RN) 015 (Given - Provider: Floridalma Barron, AYE)1026 (Given - Provider: Mariana Villafuerte, AYE) oxyCODONE [...] 151 (See Alternative - Provider: Floridalma Barron, RN)1026 (See Alternative - Provider: Mariana Villafuerte, AYE) [...] Barron, RN)1026 (See Alternative - Provider: Mariana Villafuerte, AYE) povidone-iodine (Betadine Ophthalmic Prep) 5 % ophthalmic solution (CANCELED) ONCE PRN, Starting on Sat11/17/21 at 1407, Until 11/18/21 at 1826, Intra-Operative (Intra-Procedure), Routine 1407 (Given - Provider: Ismael Wu MD - Comment: added to 500ml NACL for irrigation) QXjtlgcuugx-MCZZCVNjhym-gt oNIDine-ketorolac (LISANDRA) (2.46 mg-0.005 mg-0.0008 mg-0.3 mg/mL) [...] Sat11/17/21 at 2139, Until Sat11/18/21 at 1826, Low blood sugar, For BG [...] Routine documented in this encounter Care Teams Ibm Websphere Commerce Developer Relationship Specialty Start Date End Date Alo Carey DO [address] [place] [address] [place] [address] PCP - General Internal Medicine 08/31/20 07/03/23 documented as of this encounter
--- OUTSIDE RECORDS SUMMARY | 2024-03-12 10:56 | XMS_ITS | Encounter Summary ---
Author Organization [facility] Address [facility] [place] [address] Care Team Providers Care Home Improvement Installer Name Role Phone Alo Carey DO Primary Care Provider Reason for Referral * Consultation (Routine) - Closed Specialty Diagnoses / Procedures Referred By Marques livingston Referred To Contact Diagnoses Malignant neoplasm of prostate Bela Charles APRN [facility] [place] [address] Rock Myers MD [address] [place] [id number] Referral ID Status Reason Start Date Expiration Date V isits Requested Visits Authorized [id number] Closed Consult, Test & Treat 07/31/2022 01/27/2023 3 3 Encounter Details Date Type Department Care Team (Late st Contact Info) Description 07/31/2022 3:15 PM EDT Office Visit Radiation Oncology at [address] [phone] Bela Charles, CLINICAL APPLICATIONS MANAGER [facility] [place] [address] Malignant neoplasm of prostate (Primary Dx) Social [...] this encounter Progress Notes * Bela Charles, ARNOLD - 07/31/2022 3:15 PM EDTSummary: 72 year old M dx High Risk Prostate Cancer. LT ADT planned x 18 mos, compl VMRT 09/06/21 [facility] [place] [address] Phone: RADIATION ONCOLOGY FOLLOW UP NOTE Dr [...] and 2 months. He will be in [place] at time his next shot is due [...] HPI: I reviewed the following outside notes: [place] [employer] [facility] he and his partner go there qday for drinks when theyare down for the winter. He has been with current partner x 1 years after his . Had 3 TIAs Feb 20, Apr 17 and then May 21. Does not recall first time, his partner relates thathe had a blank look and the ambulance came to transport him. Then had unintelligible speech x 2 episodes. Has not seen Dr Carey since returning home. [place] [facility] [place] for appt recently with neurophthalmology. [...] not want to fall. He goes to [place] and pushes cart to walk. Weight/appetite/diet: Has [...] hx TIAs x 3 when in the [place] over winter. Mood:feels he is ok Sleep: [...] receive a dose of Lupron when in [place] but labs were done there and he [...] the radiation therapy/prostate cancer Bela Charles MSN, CLINICAL APPLICATIONS MANAGER, POOL TECHNICIAN-C Nurse Practitioner Radiation Oncology documented in this encounter Plan of Treatment Upcoming Encounters Date Type Department Care Team (Late st Contact Info) Description 03/24/2024 9:00 AM EST TH Visit (TeleHealth) Radiation Oncology at [address] [phone] Ping Moore PA [facility] [place] [address] 03/26/2024 9:30 AM EST Office Visit Hematology/Oncology at [address] [phone] Yessi Renee APRN [address] [place] [address] DR HEMATOLOGY AND ONCOLOGY [place], [place] [phone] 03/26/2024 9:30 AM EST Infusion Hematology Oncology at [address] [phone] 04/09/2024 9:30 AM EST Office Visit Hematology/Oncology at [address] [phone] Cl Hess MD [facility] [place] [address] Yessi Renee, [address] HEMATOLOGY AND ONCOLOGY [place], [place] [phone] 04/09/2024 10:00 AM EST Infusion Hematology Oncology at [address] [phone] 04/23/2024 9:30 AM EST Office Visit Hematology/Oncology at [address] [phone] Cl Hess MD [facility] [place] [address] [address] HEMATOLOGY AND ONCOLOGY [place], [place] [phone] 04/23/2024 10:00 AM EST Infusion Hematology Oncology at [address] [phone] 05/18/2024 4:30 PM EDT TH Visit (TeleHealth) [place] [address] Malachi Rothman MD [facility] [place] [address] Scheduled Referrals Name Type Priority Associated Diagnoses Orde r Schedule Referral to Urology Outpatient Referral Routine Malignant neoplasm of prostate Ordered: 07/31/2022 documented as of this encounter Results * Testosterone, total (06/25/2023 2:37 PM EDT) [facility] [address] Testosterone 2.12 1.93 - 7.40 ng/mL [facility] Comment: Pediatric Reference Ranges: ? Males [...] Agency Comment Spec In Lab Bela Charles CLINICAL APPLICATIONS MANAGER CHEMISTRY ORDERABLES [facility] [place] [address] * PSA (Ultrasensitive) (06/25/2023 2:37 PM EDT) Prostate Specific Antigen (Ultrasensitive) 0.09 0.00 - 4.00 ng/mL [facility] Comment: PLEASE NOTE: The above reference [...] Agency Comment Spec In Lab Bela Charles CLINICAL APPLICATIONS MANAGER CHEMISTRY ORDERABLES Performing Organization Address City/State/[facility] Co de Phone Number [facility] [place] [address] documented in this encounter Visit Diagnoses Diagnosis Malignant neoplasm of prostate- Primary documented in this encounter Care Teams Home Improvement Installer Relationship Specialty Start Date End Date Alo Carey DO [address] [place] [address] [place] [address] PCP - General Internal Medicine 08/31/20 07/03/23 documented as of this encounter
--- OUTSIDE RECORDS SUMMARY | 2024-03-12 10:56 | XMS_ITS | Encounter Summary ---
[place] [address] Care Team Providers Care Micro Computer Specialist Name Role Phone YungAlo santiago Primary Care Provider [phone] Reason for Visit * Reason Comments Medication Refill Encounter Details Date Type Department Care Team (Late Contact Info) Description 05/30/2022 Refill Radiation Oncology at [address] [phone] Bigg Peters MD [address] [place] [address] [place] [address] Malignant neoplasm of prostate Social [...] TH Visit (TeleHealth) Radiation Oncology at [address] [phone] Ping Moore PA [facility] HEMATOLOGY [place] [address] 03/26/2024 9:30 AM EST Office Visit Hematology/Oncology at [address] [phone] [address] HEMATOLOGY AND ONCOLOGY [place], [place] [phone] 03/26/2024 9:30 AM EST Infusion Hematology Oncology at [address] [phone] 04/09/2024 9:30 AM EST Office Visit Hematology/Oncology at [address] [phone] Cl Hess MD [facility] [place] [address] HEMATOLOGY AND ONCOLOGY [place], [place] [phone] 04/09/2024 10:00 AM EST Infusion Hematology Oncology at [address] [phone] 04/23/2024 9:30 AM EST Office Visit Hematology/Oncology at [address] [phone] Cl Hess MD [facility] [place] [address] [address] HEMATOLOGY AND ONCOLOGY [place], [place] [address] 04/23/2024 10:00 AM EST Infusion Hematology Oncology at [address] [phone] 05/18/2024 4:30 PM EDT TH Visit (TeleHealth) [place] [address] Malachi Rothman MD [facility] [place] [address] documented as of this encounter Visit Diagnoses Diagnosis Malignant neoplasm of prostate documented in this encounter Care Teams Micro Computer Specialist Relationship Specialty Start Date End Date Alo Carey DO [address] [place] [address] [place] [address] PCP - General Internal Medicine 08/31/20 07/03/23 documented as of this encounter
--- OUTSIDE RECORDS SUMMARY | 2024-03-12 10:56 | XMS_ITS | Encounter Summary ---
[place] [address] Care Team Providers Care Newspaper Delivery Driver Name Role Phone Alo Carey DO Primary Care Provider [phone] Reason for Visit * Auth/Cert Specialty Diagnoses / Procedures Referred By Marques livingston Referred To Contact Diagnoses S/P total hip arthroplasty right hip OA Procedures PRO TOTAL HIP ARTHROPLASTY TOTAL HIP ARTHROPLASTY - POSTERIOR (WRVU 20.72) MODIFIER ACTIS HIP STEM DEPUY MODIFIER PINNACLE ACETABULUM DEPUY Ismael Wu MD [facility] [place] [address] [facility] Referral ID Status Reason Start Date Expiration Date Visits Re quested Visits Authorized [id number] 1 1 Encounter Details Date Type Department Care Team (Late st Contact Info) Description 11/17/2021 1:28 PM EDT Anesthesia Event [place] [phone] Zeynep Mcallister MD [facility] [place] [address] Eros Foss MD [facility] [place] [address] Anesthesia Record Procedure Summary Procedure Name Responsible [...] 1307; metacarpal vein (top of hand), left; awmy-wro-ydyqfu catheter system; Anatomical Landmarks; 20 gauge, 1 [...] Eros Foss MD 11/17/21 1747 by Rosalee Hummel RN Incision 11/17/21; 1405; Righ t, posterior; [...] Procedure Summary Date: 11/17/21 Room / Location: [facility] OR [address] [place] [address] MAIN OR Anesthesia Start: 1328 Anesthesia Stop: 165 Procedures: TOTAL HIP ARTHROPLASTY - POSTERIOR (WRVU 20.72) (Right Hip) MODIFIER ACTIS HIP STEM DEPUY (Right Hip) MODIFIER PINNACLE ACETABULUM DEPUY (N/A Hip) Diagnosis: Primary osteoarthritis of right hip Right leg pain (right hip OA) Surgeons: Ismael Wu MD Responsible Provider: Zeynep Mcallister MD Anesthesia Type: spinal ASA Status: 3 All Anesthesia Providers: Anesthesiologist: Brie Laguna MD; Zeynep Mcallister MD Roll Threader Operator: Eros Foss MD Vitals Value Taken Time BP 162/71 11/17/21 1645 Temp Pulse 42 11/17/21 1649 Resp 12 11/17/21 1649 SpO2 99 % 11/17/21 1649 Pain Level Vitals shown include unvalidated device data. Patient Location: PACU/[facility] Level of Consciousness: Awake and Alert [...] without issue. VSS. Full report given to SALES FLOOR TEAM LEADER. * Anesthesia Procedure Notes - Eros Foss [...] PM Patient Location: Block Room Baseline Information (GPM-vqbl-tpkcxfvd entry for database use): Chronic Pain: Yes [...] - 11/17/2021 1:28:00 PM Events/Notes Events: None Resident/GROUNDS MAINTENANCE SUPERVISOR: Eros Foss MD Second Resident/GROUNDS MAINTENANCE SUPERVISOR: SRNA: Fellow: Attending Physician: Brie Laguna MD ~~~~~~~~~~~~~~~~~~~~~~~~~~~~~~~~~~~~~~~~~~~~~~~~~~~~~~~~~~~~ * Anesthesia Preprocedure Evaluation - Eros Foss MD - 11/16/2021 5:51 PM EDT Pre-Anesthesia Evaluation for: Wero Sadler a 71 y.o. male. Procedure(s): TOTAL HIP ARTHROPLASTY [...] ??? Colon adenocarcinoma 2009 recieved chemo in [place] ??? Coronary artery disease ??? Coronary artery [...] 9.19) performed by Basim Barr MD at [facility] MAIN OR ??? PRO LASER VAPORIZATION SURGERY PROSTATE, COMPLETE Midline 02/02/2021 CYSTO, LASER TURP (WRVU 12.15) performed by Cayetano Engle MD at [facility] MAIN OR ??? PRO PLACE TRANSCATHETER STENT, CCA W EMBOLIC PROECT Right 07/14/2021 @TRANSCATH INTRAVASCULAR STENT,CAROTID,PERC,W\EMBOLIC PROT. (WRVU 18) performed by Basim Barr MD at [facility] MAIN OR ??? PRO TOTAL HIP ARTHROPLASTY Left 10/10/2020 TOTAL HIP ARTHROPLASTY - POSTERIOR (WRVU 20.72) performed by Ismael Wu MD at [facility] MAIN OR Social History Tobacco Use [...] a dye used during vascular procedure at [facility] in [place]: shaking Has tolerated MRI and CT contrast. [...] procedure at [facility] in [place]: shakingHas tolerated MRI and CT contrast. NPO [...] EST TH Visit (TeleHealth) Radiation Oncology at [address] [phone] Ping Moore PA [facility] DR [place] [address] 03/26/2024 9:30 AM EST Office Visit Hematology/Oncology at [address] [phone] Yessi Renee APRN [address] [place] [address] HEMATOLOGY AND ONCOLOGY [place], [place] [phone] 03/26/2024 9:30 AM EST Infusion Hematology Oncology at [address] [phone] 04/09/2024 9:30 AM EST Office Visit Hematology/Oncology at [address] [phone] Cl Hess MD [facility] [place] [address] [address] [place] [address] 04/09/2024 10:00 AM EST Infusion Hematology Oncology at [address] [phone] 04/23/2024 9:30 AM EST Office Visit Hematology/Oncology at [address] [phone] Cl Hess MD [facility] [place] [address] [address] [place] [address] 04/23/2024 10:00 AM EST Infusion Hematology Oncology at [address] [phone] 05/18/2024 4:30 PM EDT TH Visit (TeleHealth) [place] [address] Malachi Rothman MD [facility] [place] [address] documented as of this encounter Procedures Procedure [...] PM Patient Location: Block Room Baseline Information (LUI-yddc-pajwfgxv entry for database use): Chronic Pain: ??Yes [...] - 11/17/2021 1:28:00 PM Events/Notes Events: ??None Resident/GROUNDS MAINTENANCE SUPERVISOR: ? Eros Foss MD Second Resident/GROUNDS MAINTENANCE SUPERVISOR: SRNA: ? Fellow: ? Attending Physician: ? Brie Laguna MD ~~~~~~~~~~~~~~~~~~~~~~~~~~~~~~~~~~~~~~~~~~~~~~~~~~~~~~~~~~~~ Brie Laguna MD NEGATIVE ASSEMBLER CH[facility] documented in this encounter Visit Diagnoses [...] mg documented in this encounter Care Teams Newspaper Delivery Driver Relationship Specialty Start Date End Date Alo Carey DO [address] [place] [address] [place] [phone] PCP - General Internal Medicine 08/31/20 07/03/23 documented as of this encounter
--- OUTSIDE RECORDS SUMMARY | 2024-03-12 10:56 | XMS_ITS | Encounter Summary ---
Author Organization [facility] [place] [address] Care Team Providers Care Province Archivist Name Role Phone Alo Carey DO Primary Care Provider [phone] Encounter Details Date Type Department Care Team [...] EST TH Visit (TeleHealth) Radiation Oncology at [address] [phone] Ping Moore PA [facility] HEMATOLOGY [place] [address] 03/26/2024 9:30 AM EST Office Visit Hematology/Oncology at [address] [phone] HEMATOLOGY AND ONCOLOGY [place], [place] [address] [phone] 03/26/2024 9:30 AM EST Infusion Hematology Oncology at [address] [phone] 04/09/2024 9:30 AM EST Office Visit Hematology/Oncology at [address] [phone] Cl Hess MD [facility] [place] [address] HEMATOLOGY AND ONCOLOGY [place], [place] [address] 04/09/2024 10:00 AM EST Infusion Hematology Oncology at [address] [phone] 04/23/2024 9:30 AM EST Office Visit Hematology/Oncology at [address] [phone] Cl Hess MD [facility] [place] [address] Yessi Renee [address] [place] [address] 04/23/2024 10:00 AM EST Infusion Hematology Oncology at [address] [phone] 05/18/2024 4:30 PM EDT TH Visit (TeleHealth) [place] [address] Malachi Rothman MD [facility] DR [place] [address] documented as of this encounter Visit Diagnoses Not on filedocumented in this encounter Care Teams Province Archivist Relationship Specialty Start Date End Date Alo Carey DO [address] [place] [address] [place] [phone] PCP - General Internal Medicine 08/31/20 07/03/23 documented as of this encounter
--- OUTSIDE RECORDS SUMMARY | 2024-03-12 10:56 | XMS_ITS | Encounter Summary ---
[place] [address] Care Team Providers Care Door Opener Name Role Phone YungAlo santiago Primary Care Provider [phone] Reason for Visit * Reason Comments Injections Lupron Encounter Details Date Type Department Care Team (Late st Contact Info) Description 09/21/2021 1:30 PM EDT Infusion Hematology Oncology at [address] [phone] Carcinoma of prostate Social History [...] TH Visit (TeleHealth) Radiation Oncology at [address] [phone] Ping Moore PA [facility] DR HEMATOLOGY [place] [address] 03/26/2024 9:30 AM EST Office Visit Hematology/Oncology at [address] [phone] Yessi Renee [address] HEMATOLOGY AND ONCOLOGY [place], [place] [phone] 03/26/2024 9:30 AM EST Infusion Hematology Oncology at [address] [phone] 04/09/2024 9:30 AM EST Office Visit Hematology/Oncology at [address] [phone] Cl Hess MD [facility] [place] [address] Yessi Renee [address] HEMATOLOGY AND ONCOLOGY [place], [place] [address] 04/09/2024 10:00 AM EST Infusion Hematology Oncology at [address] [phone] 04/23/2024 9:30 AM EST Office Visit Hematology/Oncology at [address] [address] Cl Hess MD [facility] [place] [address] Yessi Renee APRN [address] [place] [address] DR HEMATOLOGY [place] [address] 04/23/2024 10:00 AM EST Infusion Hematology Oncology at [address] [phone] 05/18/2024 4:30 PM EDT TH Visit (TeleHealth) [place] [address] Malachi Rothman MD [facility] DR [place] [address] documented as of this encounter Visit Diagnoses [...] Gluteal documented in this encounter Care Teams Door Opener Relationship Specialty Start Date End Date Alo Carey DO [address] [place] [address] [place] [address] PCP - General Internal Medicine 08/31/20 07/03/23 documented as of this encounter
--- OUTSIDE RECORDS SUMMARY | 2024-03-12 10:56 | XMS_ITS | Encounter Summary ---
[place] [address] Care Team Providers Care Cook Helper Meat Name Role Phone YungAlo santiago Primary Care Provider [phone] Reason for Visit * Reason Comments Medication Refill Encounter Details Date Type Department Care Team (Late Contact Info) Description 04/10/2022 Refill Radiation Oncology at [address] [phone] Bigg Peters MD [address] [place] [address] [place] [address] Malignant neoplasm of prostate Social [...] TH Visit (TeleHealth) Radiation Oncology at [address] [phone] Ping Moore PA [facility] HEMATOLOGY [place] [address] 03/26/2024 9:30 AM EST Office Visit Hematology/Oncology at [address] [phone] [address] HEMATOLOGY AND ONCOLOGY [place], [place] [phone] 03/26/2024 9:30 AM EST Infusion Hematology Oncology at [address] [phone] 04/09/2024 9:30 AM EST Office Visit Hematology/Oncology at [address] [phone] Cl Hess MD [facility] [place] [address] [address] HEMATOLOGY AND ONCOLOGY [place], [place] [phone] 04/09/2024 10:00 AM EST Infusion Hematology Oncology at [address] [phone] 04/23/2024 9:30 AM EST Office Visit Hematology/Oncology at [address] [phone] Cl Hess MD [facility] [place] [address] [address] HEMATOLOGY AND ONCOLOGY [place], [place] [address] 04/23/2024 10:00 AM EST Infusion Hematology Oncology at [address] [address] 05/18/2024 4:30 PM EDT TH Visit (TeleHealth) [place] [address] Malachi Rothman MD [facility] [address] documented as of this encounter Visit Diagnoses Diagnosis Malignant neoplasm of prostate documented in this encounter Care Teams Cook Helper Meat Relationship Specialty Start Date End Date Alo Carey DO [address] [place] [address] [place] [address] PCP - General Internal Medicine 08/31/20 07/03/23 documented as of this encounter
--- OUTSIDE RECORDS SUMMARY | 2024-03-12 10:56 | XMS_ITS | Encounter Summary ---
Author Organization [facility] [place] [address] Care Team Providers Care Drain Tiler Name Role Phone YungAlo santiago Primary Care Provider Reason for Visit * Reason Onset Date Comments Questions 10/02/2021 Encounter Details Date Type Department Care Team (Late st Contact Info) Description 10/02/2021 Telephone [place] [address] Isamel Wu MD [facility] [place] [address] Questions Social History Tobacco Use Types Packs/Day [...] here. * Telephone Encounter - Marva Gonzales - 10/02/2021 12:16 PM EDTSummary: LEFT KNEE Wero [...] the need to discuss. Thank you. PH: [phone] documented in this encounter Plan of Treatment Upcoming Encounters Date Type Department Care Team (Late st Contact Info) Description 03/24/2024 9:00 AM EST TH Visit (TeleHealth) Radiation Oncology at [address] [phone] Ping Moore PA [facility] DR [place] [address] 03/26/2024 9:30 AM EST Office Visit Hematology/Oncology at [address] [phone] Yessi Renee, [address] HEMATOLOGY AND ONCOLOGY [place], [place] [address] 03/26/2024 9:30 AM EST Infusion Hematology Oncology at [address] [phone] 04/09/2024 9:30 AM EST Office Visit Hematology/Oncology at [address] [phone] Cl Hess MD [facility] [place] [address] [address] HEMATOLOGY AND ONCOLOGY [place], [place] [address] 04/09/2024 10:00 AM EST Infusion Hematology Oncology at [address] [phone] 04/23/2024 9:30 AM EST Office Visit Hematology/Oncology at [address] [phone] Cl Hess MD [facility] [place] [address] [address] HEMATOLOGY [place] [address] 04/23/2024 10:00 AM EST Infusion Hematology Oncology at [address] [phone] 05/18/2024 4:30 PM EDT TH Visit (TeleHealth) [place] [address] Malachi Rothman MD [facility] [place] [address] documented as of this encounter Visit Diagnoses Not on filedocumented in this encounter Care Teams Drain Tiler Relationship Specialty Start Date End Date Alo Carey DO [address] [place] [address] [place] [address] PCP - General Internal Medicine 08/31/20 07/03/23 documented as of this encounter
--- OUTSIDE RECORDS SUMMARY | 2024-03-12 10:56 | XMS_ITS | Encounter Summary ---
[place] [address] Care Team Providers Care Automotive Painter Name Role Phone YungAlo santiago Primary Care Provider [phone] Encounter Details Date Type Department Care Team (Late st Contact Info) Description 10/12/2022 9:30 AM EDT Tech [place] [phone] Floridalma Brewer Presence of internal carotid stent [...] TH Visit (TeleHealth) Radiation Oncology at [address] [phone] Ping Moore PA [facility] DR HEMATOLOGY [place] [address] 03/26/2024 9:30 AM EST Office Visit Hematology/Oncology at [address] [phone] [address] HEMATOLOGY AND ONCOLOGY [place] [address] 03/26/2024 9:30 AM EST Infusion Hematology Oncology at [address] [phone] 04/09/2024 9:30 AM EST Office Visit Hematology/Oncology at [address] [phone] Cl Hess MD [facility] [place] [address] [address] HEMATOLOGY AND ONCOLOGY [place], [place] [phone] 04/09/2024 10:00 AM EST Infusion Hematology Oncology at [address] [phone] 04/23/2024 9:30 AM EST Office Visit Hematology/Oncology at [address] [phone] Cl Hess MD [facility] [place] [address] [address] [place] [address] 04/23/2024 10:00 AM EST Infusion Hematology Oncology at [address] [phone] 05/18/2024 4:30 PM EDT TH Visit (TeleHealth) [place] [address] Malachi Rothman MD [facility] [place] [address] documented as of this encounter Procedures Procedure Name Priority Date/Time Associated Diagnosis Comments CAROTID DUPLEX, BILATERAL Routine 10/12/2022 9:31 AM EDT Presence of internal carotid stent documented in this encounter Results * Carotid Duplex, Bilateral (10/12/2022 9:31 AM EDT) VB Text Report Department: Vascular Surgery Lab Patient: [id number] (THA JARRETT) CPT: 94330 Referring Physician: BASIM BARR ?? Indications: HX [...] stent documented in this encounter Care Teams Automotive Painter Relationship Specialty Start Date End Date Alo Carey DO [address] [place] [address] [place] [address] PCP - General Internal Medicine 08/31/20 07/03/23 documented as of this encounter
--- OUTSIDE RECORDS SUMMARY | 2024-03-12 10:56 | XMS_ITS | Encounter Summary ---
[place] [address] Care Team Providers Care Poleyard Supervisor Name Role Phone YungAlo santiago Primary Care Provider [phone] Reason for Visit * Reason Onset Date Comments Pre Procedure Call 10/02/2021 Encounter Details Date Type Department Care Team (Late st Contact Info) Description 10/02/2021 Telephone [place] [phone] Ismael Wu MD [facility] DR ORTHOP[place] [address] Pre Procedure Call Social History Tobacco Use [...] Notes * Telephone Encounter - Marva Gonzales 10/02/2021 12:12 PM EDTSummary: PRE OP APPTS Who is calling? MARIAN Best call back number: [phone] Best time to call back between 8:00 [...] scheduled. He will be flying in to [place] [employer] on 10/10/21and could be at [facility] [place] 2:00 pm if we could schedule them the same day to avoid any more travelling for him. Thank you for calling and working with him on this. documented in this encounter Plan of Treatment Upcoming Encounters Date Type Department Care Team (Late st Contact Info) Description 03/24/2024 9:00 AM EST TH Visit (TeleHealth) Radiation Oncology at [address] [phone] Ping Moore PA [facility] DR HEMATOLOGY [place] [address] 03/26/2024 9:30 AM EST Office Visit Hematology/Oncology at [address] [phone] Yessi Renee APRN [address] [place] [address] DR HEMATOLOGY [place] [address] 03/26/2024 9:30 AM EST Infusion Hematology Oncology at [address] [phone] 04/09/2024 9:30 AM EST Office Visit Hematology/Oncology at [address] [phone] Cl Hess MD [facility] [place] [address] [address] HEMATOLOGY [place] [address] 04/09/2024 10:00 AM EST Infusion Hematology Oncology at [address] [phone] 04/23/2024 9:30 AM EST Office Visit Hematology/Oncology at [address] [phone] Cl Hess MD [facility] [address] [address] HEMATOLOGY [place] [address] 04/23/2024 10:00 AM EST Infusion Hematology Oncology at [address] [phone] 05/18/2024 4:30 PM EDT TH Visit (TeleHealth) [place] [address] Malachi Rothman MD [facility] DR [place] [address] documented as of this encounter Visit Diagnoses Not on filedocumented in this encounter Care Teams Poleyard Supervisor Relationship Specialty Start Date End Date Alo Carey DO [address] [place] [address] [place] [address] PCP - General Internal Medicine 08/31/20 07/03/23 documented as of this encounter
--- OUTSIDE RECORDS SUMMARY | 2024-03-12 10:56 | XMS_ITS | Encounter Summary ---
[place] [address] Care Team Providers Care Nuclear Reactor Operator Name Role Phone YungAlo santiago Primary Care Provider [phone] Reason for Visit * Reason Onset Date Comments Pre Procedure Call 11/14/2021 Encounter Details Date Type Department Care Team (Late st Contact Info) Description 11/14/2021 Telephone [place] [phone] Ismael Wu MD [facility] DR [place] [address] Pre Procedure Call Social History Tobacco Use [...] is calling? MARIAN Best call back number: [phone] Best time to call back between 8:00 am & 5:00 pm: ANY, YASSINE Can we leave a message? yes When is your procedure? 11/17/21 Who is your surgeon? LONDON What procedure are you having? JIMI What is the question you would like to ask the clinical care team? Mraian would like a call back YASSINE to [...] TH Visit (TeleHealth) Radiation Oncology at [address] [phone] Ping Moore PA [facility] DR HEMATOLOGY [place] [address] 03/26/2024 9:30 AM EST Office Visit Hematology/Oncology at [address] [phone] [address] HEMATOLOGY AND ONCOLOGY [place], [place] [address] 03/26/2024 9:30 AM EST Infusion Hematology Oncology at [address] [phone] 04/09/2024 9:30 AM EST Office Visit Hematology/Oncology at [address] [phone] Cl Hess MD [facility] [place] [address] [address] HEMATOLOGY AND ONCOLOGY [place], [place] [phone] 04/09/2024 10:00 AM EST Infusion Hematology Oncology at [address] [phone] 04/23/2024 9:30 AM EST Office Visit Hematology/Oncology at [address] [phone] Cl Hess MD [facility] [place] [address] [address] HEMATOLOGY AND ONCOLOGY [place], [place] [address] 04/23/2024 10:00 AM EST Infusion Hematology Oncology at [address] [phone] 05/18/2024 4:30 PM EDT TH Visit (TeleHealth) [place]iation [place] [address] Malachi Rothman MD [facility] [place] [address] documented as of this encounter Visit Diagnoses Not on filedocumented in this encounter Care Teams Nuclear Reactor Operator Relationship Specialty Start Date End Date Alo Carey DO [address] [place] [address] [place] [address] PCP - General Internal Medicine 08/31/20 07/03/23 documented as of this encounter
--- OUTSIDE RECORDS SUMMARY | 2024-03-12 10:56 | XMS_ITS | Encounter Summary ---
[place] [address] Care Team Providers Care Dye Mixer Name Role Phone Alo Carey Primary Care Provider [phone] Encounter Details Date Type Department Care Team (Late st Contact Info) Description 06/29/2022 Orders Only Radiation Oncology at [address] [place] [address] Bigg Peters MD [address] [place] [address] DR RADIATION ONCOLOGY [place], [place] [phone] Carcinoma of prostate Social History Tobacco Use [...] TH Visit (TeleHealth) Radiation Oncology at [address] [phone] Ping Moore PA [facility] DR HEMATOLOGY [place] [address] 03/26/2024 9:30 AM EST Office Visit Hematology/Oncology at [address] [phone] [address] HEMATOLOGY AND ONCOLOGY [place], [place] [phone] 03/26/2024 9:30 AM EST Infusion Hematology Oncology at [address] [phone] 04/09/2024 9:30 AM EST Office Visit Hematology/Oncology at [address] [phone] Cl Hess MD [facility] [place] [address] [address] HEMATOLOGY AND ONCOLOGY [place], [place] [phone] 04/09/2024 10:00 AM EST Infusion Hematology Oncology at [address] [phone] 04/23/2024 9:30 AM EST Office Visit Hematology/Oncology at [address] [phone] Cl Hess MD [facility] [place] [address] Yessi Renee [address] HEMATOLOGY AND ONCOLOGY [place], [place] [phone] 04/23/2024 10:00 AM EST Infusion Hematology Oncology at [address] [address] 05/18/2024 4:30 PM EDT TH Visit (TeleHealth) [place] [address] Malachi Rothman MD [facility] [place] [address] documented as of this encounter Visit Diagnoses Diagnosis Carcinoma of prostate Malignant neoplasm of prostate documented in this encounter Care Teams Dye Mixer Relationship Specialty Start Date End Date Alo Carey DO [address] [place] [address] [place] [address] PCP - General Internal Medicine 08/31/20 07/03/23 documented as of this encounter
--- OUTSIDE RECORDS SUMMARY | 2024-03-12 10:56 | XMS_ITS | Encounter Summary ---
[place] [address] Care Team Providers Care Supervisor Cured Meats Name Role Phone Alo Carey Primary Care Provider [phone] Encounter Details Date Type Department Care Team (Late st Contact Info) Description 09/21/2021 1:00 PM EDT Office Visit Radiation Oncology at [address] [phone] Bigg Peters MD [address] [place] [address] [place] [address] Malignant neoplasm of prostate Social [...] from the original note were not included. [facility] Medicine Radiation Oncology Radiation Oncology On-treatment [...] placed in this encounter. ??? National Cancer [place] (NCI) Comprehensive Cancer Center ??? [employer] Commission on Cancer (ACS Joanna) Accredited Cancer Program ??? [employer] (ACR) Accredited Radiation Oncology Program documented in this encounter Plan of Treatment Upcoming Encounters Date Type Department Care Team (Late st Contact Info) Description 03/24/2024 9:00 AM EST TH Visit (TeleHealth) Radiation Oncology at [address] [phone] Ping Moore PA [facility] DR HEMATOLOGY [place] [address] 03/26/2024 9:30 AM EST Office Visit Hematology/Oncology at [address] [phone] Yessi Renee APRN [address] [place] [address] HEMATOLOGY AND ONCOLOGY [place], [place] [phone] 03/26/2024 9:30 AM EST Infusion Hematology Oncology at [address] [phone] 04/09/2024 9:30 AM EST Office Visit Hematology/Oncology at [address] [phone] Cl Hess MD [facility] [place] [address] HEMATOLOGY AND ONCOLOGY [place], [place] [address] 04/09/2024 10:00 AM EST Infusion Hematology Oncology at [address] [phone] 04/23/2024 9:30 AM EST Office Visit Hematology/Oncology at [address] [phone] Cl Hess MD [facility] [place] [address] [address] [place] [address] 04/23/2024 10:00 AM EST Infusion Hematology Oncology at [address] [phone] 05/18/2024 4:30 PM EDT TH Visit (TeleHealth) [place] [address] Malachi Rothman MD [facility] [place] [address] documented as of this encounter Visit Diagnoses Diagnosis Malignant neoplasm of prostate documented in this encounter Care Teams Supervisor Cured Meats Relationship Specialty Start Date End Date Alo Carey DO [address] [place] [address] [place] [address] PCP - General Internal Medicine 08/31/20 07/03/23 documented as of this encounter
--- OUTSIDE RECORDS SUMMARY | 2024-03-12 10:56 | XMS_ITS | Encounter Summary ---
[place] [address] Care Team Providers Care Senior Business Development Manager Name Role Phone YungAlo santiago Primary Care Provider [phone] Encounter Details Date Type Department Care Team (Late st Contact Info) Description 11/20/2021 Notes [place] [phone] Olena Perez Social History Tobacco Use Types [...] Replacement: Balancing Safety and Effectiveness. ?? Principle Sewing Machine Operator Zipper: Dr. Chisholm ?? Velos #: [id number] ?? Subject #: [id number] ?? Call placed to subject to follow [...] TH Visit (TeleHealth) Radiation Oncology at [address] [phone] Ping Moore PA [facility] [place] [address] 03/26/2024 9:30 AM EST Office Visit Hematology/Oncology at [address] [phone] Yessi Renee, [address] HEMATOLOGY AND ONCOLOGY [place], [place] [phone] 03/26/2024 9:30 AM EST Infusion Hematology Oncology at [address] [phone] 04/09/2024 9:30 AM EST Office Visit Hematology/Oncology at [address] [phone] Cl Hess MD [facility] [place] [address] Yessi Renee [address] HEMATOLOGY AND ONCOLOGY [place], [place] [phone] 04/09/2024 10:00 AM EST Infusion Hematology Oncology at [address] [phone] 04/23/2024 9:30 AM EST Office Visit Hematology/Oncology at [address] [phone] Cl Hess MD [facility] [place] [address] Yessi Renee APRN [address] [place] [address] DR [place] [address] 04/23/2024 10:00 AM EST Infusion Hematology Oncology at [address] [phone] 05/18/2024 4:30 PM EDT TH Visit (TeleHealth) [place] [address] Malachi Rothman MD [facility] [place] [address] documented as of this encounter Visit Diagnoses Not on filedocumented in this encounter Care Teams Senior Business Development Manager Relationship Specialty Start Date End Date Alo Carey DO [address] [place] [address] [place] [address] PCP - General Internal Medicine 08/31/20 07/03/23 documented as of this encounter
--- OUTSIDE RECORDS SUMMARY | 2024-03-12 10:57 | XMS_ITS | Encounter Summary ---
[place] [address] Care Team Providers Care Plaster Die Maker Name Role Phone YungAlo santiago Primary Care Provider [phone] Encounter Details Date Type Department Care Team (Latest Contact Info) Description 08/15/2021 8:30 AM EDT Tech Visit [place] [phone] Lizeth Gracia Stenosis of carotid artery, unspecified laterality; History [...] TH Visit (TeleHealth) Radiation Oncology at [address] [phone] Ping Moore PA [facility] DR HEMAT[place] [address] 03/26/2024 9:30 AM EST Office Visit Hematology/Oncology at [address] [phone] [address] HEMATOLOGY AND ONCOLOGY [place], [place] [address] 03/26/2024 9:30 AM EST Infusion Hematology Oncology at [address] [phone] 04/09/2024 9:30 AM EST Office Visit Hematology/Oncology at [address] [phone] Cl Hess MD [facility] [place] [address] [address] HEMATOLOGY AND ONCOLOGY [place], [place] [address] 04/09/2024 10:00 AM EST Infusion Hematology Oncology at [address] [phone] 04/23/2024 9:30 AM EST Office Visit Hematology/Oncology at [address] [phone] Cl Hess MD [facility] [place] [address] [address] HEMATOLOGY AND ONCOLOGY [place], [place] [address] 04/23/2024 10:00 AM EST Infusion Hematology Oncology at [address] [phone] 05/18/2024 4:30 PM EDT TH Visit (TeleHealth) [place] [address] Malachi Rothman MD [facility] [place] [address] documented as of this encounter Procedures Procedure Name Priority Date/Time Associated Diagnosis Comments CAROTID DUPLEX, BILATERAL Routine 08/15/2021 8:29 AM EDT Stenosis of carotid artery, unspecified laterality History of cerebrovascular accident History of carotid endarterectomy documented in this encounter Results * Carotid Duplex, Bilateral (08/15/2021 8:29 AM EDT) VB Text Report Department: Vascular Surgery Lab Patient: [id number] (THA SADLER) CPT: 44352 Referring Physician: AL HUERTA ?? Phone: Indications: [...] 16-49% ? 97 ?1.00 Electronically Signed by: SOLEDAD GLASGOW on 2021-08-18 02:13:26 PM [facility]AS[facility] VB Text Report End of Report VAS[facility] 08/15/2021 8:29 AM EDT Al Huerta APRN VASCULAR ORDERABLES [facility] documented in this encounter Visit Diagnoses Diagnosis Stenosis of carotid artery, unspecified laterality History of cerebrovascular accident Transient ischemic attack (TIA), and cerebral infarction without residual deficits History of carotid endarterectomy Other postprocedural status documented in this encounter Care Teams Plaster Die Maker Relationship Specialty Start Date End Date Alo Carey DO [address] [place] [address] LEVAR Delarosa [phone] PCP - General Internal Medicine 08/31/20 07/03/23 documented as of this encounter
--- OUTSIDE RECORDS SUMMARY | 2024-03-12 10:57 | XMS_ITS | Encounter Summary ---
Author Organization [facility] Address [facility] [place] [address] Care Team Providers Care Casino Cashier Name Role Phone Alo Carey DO Primary Care Provider [phone] Encounter Details Date Type Department Care Team (Late st Contact Info) Description 08/04/2021 1:15 PM EDT Office Visit Radiation Oncology at [address] [phone] Cl Mcbride MD [facility] [place] [address] Malignant neoplasm of prostate Social History Tobacco [...] [facility] Oncology Radiation Oncology On-treatment [...] bite. Looking forward to dancing and singing [employer] at [employer] celebration this weekend. GI Diarrhea - attributes [...] to bed or chair Medications Medications 08/04/21 3377 Medication Sig Taking? folic acid (Folvite) 1 [...] placed in this encounter. ??? National Cancer [place] (NCI) Comprehensive Cancer Center ??? [place] [employer] Commission on Cancer (ACS Joanna) Accredited Cancer Program ??? [place] (ACR) Accredited Radiation Oncology Program documented in this encounter Plan of Treatment Upcoming Encounters Date Type Department Care Team (Late st Contact Info) Description 03/24/2024 9:00 AM EST TH Visit (TeleHealth) Radiation Oncology at [address] [phone] Ping Moore PA [facility] DR HEMATOLOGY [place] [address] 03/26/2024 9:30 AM EST Office Visit Hematology/Oncology at [address] [phone] Yessi Renee APRN [address] [place] [address] DR HEMATOLOGY AND ONCOLOGY [place], [place] [phone] 03/26/2024 9:30 AM EST Infusion Hematology Oncology at [address] [phone] 04/09/2024 9:30 AM EST Office Visit Hematology/Oncology at [address] [phone] Cl Hess MD [facility] [place] [place] [address] HEMATOLOGY [place] [address] 04/09/2024 10:00 AM EST Infusion Hematology Oncology at [address] [phone] 04/23/2024 9:30 AM EST Office Visit Hematology/Oncology at [address] [phone] Cl Hess MD [facility] [place] [place] [address] [address] HEMATOLOGY [place] [address] 04/23/2024 10:00 AM EST Infusion Hematology Oncology at [address] [phone] 05/18/2024 4:30 PM EDT TH Visit (TeleHealth) [place] [address] Malachi Rothman MD [facility] [place] [address] documented as of this encounter Visit Diagnoses Diagnosis Malignant neoplasm of prostate documented in this encounter Care Teams Casino Cashier Relationship Specialty Start Date End Date Alo Carey DO [address] [place] [address] [place] [address] PCP - General Internal Medicine 08/31/20 07/03/23 documented as of this encounter
--- OUTSIDE RECORDS SUMMARY | 2024-03-12 10:57 | XMS_ITS | Encounter Summary ---
Author [place] [address] Care Team Providers Care Cuff Turner Name Role Phone Alo Carey Primary Care Provider [phone] Encounter Details Date Type Department Care Team (Late st Contact Info) Description 08/10/2021 1:00 PM EDT Office Visit Radiation Oncology at [address] [phone] Bigg Peters MD [address] [place] [address] [place] [address] Malignant neoplasm of prostate Social [...] from the original note were not included. [facility] Medicine Radiation Oncology Radiation Oncology [...] to bed or chair Medications Medications 08/04/21 7547 Medication Sig Taking? naproxen sodium (ANAPROX) 220 [...] placed in this encounter. ??? National Cancer [place] (NCI) Comprehensive Cancer Center ??? [place] [employer] Commission on Cancer (ACS Joanna) Accredited Cancer Program ??? [place] [employer] (ACR) Accredited Radiation Oncology Program documented in this encounter Plan of Treatment Upcoming Encounters Date Type Department Care Team (Late st Contact Info) Description 03/24/2024 9:00 AM EST TH Visit (TeleHealth) Radiation Oncology at [address] [phone] Ping Moore PA [facility] [place] [address] 03/26/2024 9:30 AM EST Office Visit Hematology/Oncology at [address] [phone] Yessi Renee APRN [address] [place] [address] DR HEMATOLOGY AND ONCOLOGY [place], [place] [phone] 03/26/2024 9:30 AM EST Infusion Hematology Oncology at [address] [phone] 04/09/2024 9:30 AM EST Office Visit Hematology/Oncology at [address] [phone] Cl Hess MD [facility] [place] [address] [address] HEMATOLOGY AND ONCOLOGY [place], [place] [address] 04/09/2024 10:00 AM EST Infusion Hematology Oncology at [address] [phone] 04/23/2024 9:30 AM EST Office Visit Hematology/Oncology at [address] [phone] Cl Hess MD [facility] [place] [address] Yessi Renee, [address] [place] [address] 04/23/2024 10:00 AM EST Infusion Hematology Oncology at [address] [phone] 05/18/2024 4:30 PM EDT TH Visit (TeleHealth) [place] [address] Malachi Rothman MD [facility] [place] [address] documented as of this encounter Visit Diagnoses Diagnosis Malignant neoplasm of prostate documented in this encounter Care Teams Cuff Turner Relationship Specialty Start Date End Date Alo Carey DO [address] [place] [address] [place] [address] PCP - General Internal Medicine 08/31/20 07/03/23 documented as of this encounter
--- OUTSIDE RECORDS SUMMARY | 2024-03-12 10:57 | XMS_ITS | Encounter Summary ---
[place] [address] Care Team Providers Care Drilling Manager Name Role Phone Alo Carey DO Primary Care Provider [phone] Reason for Referral * Consultation (Routine) - Closed Specialty Diagnoses / Procedures Referred By Marques livingston Referred To Contact Diagnoses History of cerebrovascular accident Basim Barr MD [facility] [place] [address] Eye Care, [address] [place] [address] Referral ID Status Reason Start Date Expiration Date V isits Requested Visits Authorized [id number] Closed Consult, Test & Treat 08/28/2021 02/24/2022 5 5 Encounter Details Date Type Department Care Team (Late st Contact Info) Description 08/28/2021 Orders [place] [address] Yessi Walter, RN History of cerebrovascular accident Social History Tobacco Use Types Packs/Day Years Used Date Smoking Tobacco: Former Cigarettes 3 - 1992 Smokeless Tobacco: Never Alcohol [...] TH Visit (TeleHealth) Radiation Oncology at [address] [phone] Ping Moore PA [facility] DR [place] [address] 03/26/2024 9:30 AM EST Office Visit Hematology/Oncology at [address] [phone] [address] HEMATOLOGY AND ONCOLOGY [place], [place] [phone] 03/26/2024 9:30 AM EST Infusion Hematology Oncology at [address] [phone] 04/09/2024 9:30 AM EST Office Visit Hematology/Oncology at [address] [phone] Cl Hess MD [facility] [place] [address] [address] HEMATOLOGY AND ONCOLOGY [place], [place] [address] 04/09/2024 10:00 AM EST Infusion Hematology Oncology at [address] [phone] 04/23/2024 9:30 AM EST Office Visit Hematology/Oncology at [address] [phone] Cl Hess MD [facility] [place] [address] Yessi Renee APRN [address] [place] [address] DR [place] [address] 04/23/2024 10:00 AM EST Infusion Hematology Oncology at [address] [phone] 05/18/2024 4:30 PM EDT TH Visit (TeleHealth) [place] [address] Malachi Rothman MD [facility] [place] [address] Scheduled Referrals Name Type Priority Associated Diagnoses Orde r Schedule Referral to Ophthalmology Outpatient Referral Routine History of cerebrovascular accident Ordered: 08/28/2021 documented as of this encounter Visit Diagnoses Diagnosis History of cerebrovascular accident Transient ischemic attack (TIA), and cerebral infarction without residual deficits documented in this encounter Care Teams Drilling Manager Relationship Specialty Start Date End Date Alo Carey DO [address] [place] [address] [place] [address] PCP - General Internal Medicine 08/31/20 07/03/23 documented as of this encounter
--- OUTSIDE RECORDS SUMMARY | 2024-03-12 10:57 | XMS_ITS | Encounter Summary ---
Author Organization [facility] [place] [address] Care Team Providers Care Cake Batter Mixer Name Role Phone Alo Carey Primary Care Provider [phone] Encounter Details Date Type Department Care Team (Late st Contact Info) Description 07/18/2021 12:30 PM EDT Telehealth notes [place] [address] Telehealth, Neurology None Social History Tobacco Use [...] EST TH Visit (TeleHealth) Radiation Oncology at [address] [phone] Ping Moore PA [facility] DR HEMATOLOGY [place] [address] 03/26/2024 9:30 AM EST Office Visit Hematology/Oncology at [address] [phone] [address] HEMATOLOGY AND ONCOLOGY [place], [place] [address] 03/26/2024 9:30 AM EST Infusion Hematology Oncology at [address] [phone] 04/09/2024 9:30 AM EST Office Visit Hematology/Oncology at [address] [phone] Cl Hess MD [facility] [place] [address] [address] HEMATOLOGY AND ONCOLOGY [place], [place] [phone] 04/09/2024 10:00 AM EST Infusion Hematology Oncology at [address] [phone] 04/23/2024 9:30 AM EST Office Visit Hematology/Oncology at [address] [phone] Cl Hess MD [facility] [place] [address] HEMATOLOGY AND ONCOLOGY [place], [place] [address] 04/23/2024 10:00 AM EST Infusion Hematology Oncology at [address] [phone] 05/18/2024 4:30 PM EDT TH Visit (TeleHealth) [place] [address] Malachi Rothman MD [facility] [place] [address] documented as of this encounter Visit Diagnoses Not on filedocumented in this encounter Care Teams Cake Batter Mixer Relationship Specialty Start Date End Date Alo Carey DO [address] [place] [address] [place] [address] PCP - General Internal Medicine 08/31/20 07/03/23 documented as of this encounter
--- OUTSIDE RECORDS SUMMARY | 2024-03-12 10:57 | XMS_ITS | Encounter Summary ---
[place] [address] Care Team Providers Care Hoisting Pile Driving Engineer Name Role Phone Alo Carey Primary Care Provider [phone] Encounter Details Date Type Department Care Team (Late Contact Info) Description 09/05/2021 12:45 PM EDT Notes Only Radiation Oncology at [address] [phone] Bigg Peters MD [address] [place] [address] [place] [address] Social History Tobacco Use Types [...] TH Visit (TeleHealth) Radiation Oncology at [address] [phone] Ping Moore PA [facility] HEMATOLOGY [place] [address] 03/26/2024 9:30 AM EST Office Visit Hematology/Oncology at [address] [phone] [address] HEMATOLOGY AND ONCOLOGY [place], [place] [phone] 03/26/2024 9:30 AM EST Infusion Hematology Oncology at [address] [phone] 04/09/2024 9:30 AM EST Office Visit Hematology/Oncology at [address] [phone] Cl Hess MD [facility] [place] [address] [address] HEMATOLOGY AND ONCOLOGY [place], [place] [phone] 04/09/2024 10:00 AM EST Infusion Hematology Oncology at [address] [phone] 04/23/2024 9:30 AM EST Office Visit Hematology/Oncology at [address] [phone] Cl Hess MD [facility] [place] [address] [address] HEMATOLOGY AND ONCOLOGY [place], [place] [phone] 04/23/2024 10:00 AM EST Infusion Hematology Oncology at [address] [phone] 05/18/2024 4:30 PM EDT TH Visit (TeleHealth) Radiation [place] [address] Malachi Rothman MD [facility] [place] [address] documented as of this encounter Visit Diagnoses Not on filedocumented in this encounter Care Teams Hoisting Pile Driving Engineer Relationship Specialty Start Date End Date Alo Carey DO [address] [place] [address] [place] [address] PCP - General Internal Medicine 08/31/20 07/03/23 documented as of this encounter
--- OUTSIDE RECORDS SUMMARY | 2024-03-12 10:57 | XMS_ITS | Encounter Summary ---
[place] [address] Care Team Providers Care Employee Relations Manager Name Role Phone Alo Carey Primary Care Provider [phone] Encounter Details Date Type Department Care Team (Late st Contact Info) Description 08/24/2021 1:00 PM EDT Office Visit Radiation Oncology at [address] [phone] Bigg Peters MD [address] [place] [address] [place] [address] Malignant neoplasm of prostate Social [...] from the original note were not included. [facility] Medicine Radiation Oncology Radiation [...] placed in this encounter. ??? National Cancer [place] (NCI) Comprehensive Cancer Center ??? [place] [employer] Commission on Cancer (ACS Joanna) Accredited Cancer Program ??? [place] [employer] (ACR) Accredited Radiation Oncology Program documented in this encounter Plan of Treatment Upcoming Encounters Date Type Department Care Team (Late st Contact Info) Description 03/24/2024 9:00 AM EST TH Visit (TeleHealth) Radiation Oncology at [address] [phone] Ping Moore PA [facility] [place] [address] 03/26/2024 9:30 AM EST Office Visit Hematology/Oncology at [address] [phone] Yessi Renee APRN [address] [place] [address] DR HEMATOLOGY AND ONCOLOGY [place], [place] [phone] 03/26/2024 9:30 AM EST Infusion Hematology Oncology at [address] [phone] 04/09/2024 9:30 AM EST Office Visit Hematology/Oncology at [address] [phone] Cl Hess MD [facility] [place] [address] Yessi Renee, [address] HEMATOLOGY AND ONCOLOGY [place], [place] [address] 04/09/2024 10:00 AM EST Infusion Hematology Oncology at [address] [phone] 04/23/2024 9:30 AM EST Office Visit Hematology/Oncology at [address] [phone] Cl Hess MD [facility] [place] [address] [address] HEMATOLOGY [place] [address] 04/23/2024 10:00 AM EST Infusion Hematology Oncology at [address] [phone] 05/18/2024 4:30 PM EDT TH Visit (TeleHealth) [place] [address] Malachi Rothman MD [facility] [place] [address] documented as of this encounter Visit Diagnoses Diagnosis Malignant neoplasm of prostate documented in this encounter Care Teams Employee Relations Manager Relationship Specialty Start Date End Date Alo Carey DO [address] [place] [address] [place] [address] PCP - General Internal Medicine 08/31/20 07/03/23 documented as of this encounter
--- OUTSIDE RECORDS SUMMARY | 2024-03-12 10:57 | XMS_ITS | Encounter Summary ---
Author Organization [facility] Address [facility] [place] [address] Care Team Providers Care Sound Assistant Name Role Phone CherryAlo Lon RUTHERFORD Primary Care Provider [phone] Reason for Referral * Home Health Care (Routine) - Closed Specialty Diagnoses / Procedures Referred By Marques t Referred To Contact Diagnoses Altered mental status, unspecified altered mental status type Stenosis of carotid artery, unspecified laterality History of cerebrovascular accident Sandra Murphy MD [facility] [place] [address] Referral ID Status Reason Start Date Expiration Date V isits Requested Visits Authorized [id number] Closed Consult, Test & Treat 07/22/2021 01/18/2022 999 999 Reason for Visit * Auth/Cert Specialty Diagnoses / Procedures Referred By Contermelinda t Referred To Contact Diagnoses Altered mental status, unspecified altered mental status type reperfusion injury Referral ID Status Reason Start Date Expiration Date Visits Re quested Visits Authorized [id number] 1 1 Encounter Details Date Type Department Care Team (Latest Contact Info) Description 07/18/2021 8:14 PM EDT - 07/21/2021 2:35 PM EDT Hospital Encounter Neuro Critical Care Unit - [place] [address] Patricia Briggs MD [facility] [place] [address] [place] [address] ASCVD (arteriosclerotic cardiovascular disease); Altered mental status, [...] Wero Sadler Patient Age: 71 y.o. Language: Singaporean Race: White Ethnicity: Not nor Admit date: 07/18/2021 Discharge date and time: 07/22/2021 Attending Physician: Tabitha Del Castillo MD Discharge Physician: Tabitha Del Castillo MD ID: David Sadler is a 71 yo male who is admitted from OSH on 07/18, 1 day after discharge s/p vascular surgery TCAR, for hallucinations and altered mental status now [facility] hospital medicine service for definitive evaluation [...] with optometry.?? PCP Contact Information: Alo Carey, [address] [place] [address] / [place] [address] Pending Studies and Lab Data: No current [...] with CABG in December 2018 in [place]. He had recurrence of left tunnel vision while working that persisted as 99% vision loss. 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 He underwent TCAR last week by [facility] vascular surgery with good result and recovery of vision. He was discharged home 07/17 in stable condition. Wero brothers found him altered with visual hallucinations on 07/18 so they called vascular surgery and brought him to ED where his SBP was [id number]. He was transferred to [facility] for definitive management. Originally thought to have [...] black velasco vodka the night before surgery 5/12. He has a long history of heavy [...] of reperfusion injury secondary to P2 segment PRODUCTION PROOFREADER stenosis and postoperative hypertension #TCAR on 07/14/2021 [...] global encephalopathy. There was also a P2 PRODUCTION PROOFREADER severe stenosis thought to cam possible source [...] a dye used during vascular procedure at [facility] in [place]: shaking Has tolerated MRI and CT contrast. [...] Please continue to take aspirin 81mg daily, [id number] daily, atorvastatin 80mg daily. 3) Thiamine, vitamins [...] PM STJ RAD/ONC, TREATMENT [facility] 07/27/2021 2:45 PM STJ RAD/ONC, TREATMENT [facility] 07/28/2021 1:45 PM STJ RAD/ONC, TREATMENT [facility] 08/01/2021 12:45 PM STJ RAD/ONC, TREATMENT [facility] 08/02/2021 12:45 PM STJ RAD/ONC, TREATMENT [facility] 08/03/2021 12:45 PM STJ RAD/ONC, TREATMENT STJ Rad Trt [facility] 08/04/2021 1:00 PM STJ RAD/ONC, TREATMENT [facility] 08/07/2021 12:45 PM STJ RAD/ONC, TREATMENT [facility] 08/08/2021 12:45 PM STJ RAD/ONC, TREATMENT [facility] 08/09/2021 12:45 PM STJ RAD/ONC, TREATMENT [facility] 08/10/2021 12:45 PM STJ RAD/ONC, TREATMENT [facility] 08/11/2021 1:00 PM STJ RAD/ONC, TREATMENT [facility] 08/14/2021 12:45 PM STJ RAD/ONC, TREATMENT [facility] 08/15/2021 12:45 PM STJ RAD/ONC, TREATMENT [facility] 08/16/2021 12:45 PM STJ RAD/ONC, TREATMENT [facility] 08/17/2021 12:45 PM STJ RAD/ONC, TREATMENT [facility] 08/18/2021 12:45 PM STJ RAD/ONC, TREATMENT [facility] 08/21/2021 12:45 PM STJ RAD/ONC, TREATMENT [facility] 08/22/2021 12:45 PM STJ RAD/ONC, TREATMENT [facility] 08/23/2021 12:45 PM STJ RAD/ONC, TREATMENT [facility] 08/24/2021 12:45 PM STJ RAD/ONC, TREATMENT [facility] 08/25/2021 12:45 PM STJ RAD/ONC, TREATMENT [facility] 08/28/2021 12:45 PM STJ RAD/ONC, TREATMENT [facility] 08/29/2021 12:45 PM STJ RAD/ONC, TREATMENT [facility] 08/30/2021 12:45 PM STJ RAD/ONC, TREATMENT [facility] 08/31/2021 12:45 PM STJ RAD/ONC, TREATMENT [facility] 09/01/2021 12:45 PM STJ RAD/ONC, TREATMENT [facility] 09/05/2021 12:45 PM STJ RAD/ONC, TREATMENT [facility] Your Inpatient Doctor: MD Patricia Jaramillo MD Dineth M Bandarage, MD Your Primary Care Provider: Alo Carey DO [phone] For questions regarding this document or issues relating to this hospitalization on the Medical Service, please contact your inpatient physician through the [facility] Routeman . Issues afterhours and on weekends will [...] PM STJ RAD/ONC, TREATMENT Radiation Oncology at [facility] Arrive at: [facility] door at end of hallway [phone] 07/27/2021 2:45 PM STJ RAD/ONC, TREATMENT Radiation Oncology at [facility] Arrive at: [facility] door at end of hallway [phone] 07/28/2021 1:45 PM STJ RAD/ONC, TREATMENT Radiation Oncology at [facility] Arrive at: [facility] door at end of hallway [phone] 08/01/2021 12:45 PM STJ RAD/ONC, TREATMENT Radiation Oncology at [facility] Arrive at: [facility] door at end of hallway [phone] 08/02/2021 12:45 PM STJ RAD/ONC, TREATMENT Radiation [facility]cology at [facility] door at end of hallway [phone] 08/03/2021 12:45 PM STJ RAD/ONC, TREATMENT Radiation Oncology at [facility] Arrive at: [facility] door at end of hallway [phone] 08/04/2021 1:00 PM STJ RAD/ONC, TREATMENT Radiation Oncology at [facility] Arrive at: [facility] door at end of hallway [phone] 08/07/2021 12:45 PM STJ RAD/ONC, TREATMENT Radiation Oncology at [facility] Arrive at: [facility] door at end of hallway [phone] 08/08/2021 12:45 PM STJ RAD/ONC, TREATMENT Radiation Oncology at [facility] Arrive at: [facility] door at end of hallway [phone] 08/09/2021 12:45 PM STJ RAD/ONC, TREATMENT Radiation Oncology at [facility] Arrive at: [facility] door at end of hallway [phone] 08/10/2021 12:45 PM STJ RAD/ONC, TREATMENT Radiation Oncology at [facility] Arrive at: [facility] door at end of hallway [phone] 08/11/2021 1:00 PM STJ RAD/ONC, TREATMENT Radiation Oncology at [facility] Arrive at: [facility] door at end of hallway [phone] 08/14/2021 12:45 PM STJ RAD/ONC, TREATMENT Radiation Oncology at [facility] Arrive at: [facility] door at end of hallway [phone] 08/15/2021 12:45 PM STJ RAD/ONC, TREATMENT Radiation Oncology at [facility] Arrive at: [facility] door at end of hallway [phone] 08/16/2021 12:45 PM STJ RAD/ONC, TREATMENT Radiation Oncology at [facility] Arrive at: [facility] door at end of hallway [phone] 08/17/2021 12:45 PM STJ RAD/ONC, TREATMENT Radiation Oncology at [facility] Arrive at: [facility] door at end of hallway [phone] 08/18/2021 12:45 PM STJ RAD/ONC, TREATMENT Radiation Oncology at [facility] Arrive at: [facility] door at end of hallway [phone] 08/21/2021 12:45 PM STJ RAD/ONC, TREATMENT Radiation Oncology at [facility] Arrive at: [facility] door at end of hallway [phone] 08/22/2021 12:45 PM STJ RAD/ONC, TREATMENT Radiation Oncology at [facility] Arrive at: [facility] door at end of hallway [phone] 08/23/2021 12:45 PM STJ RAD/ONC, TREATMENT Radiation Oncology at [facility] Arrive at: [facility] door at end of hallway [phone] 08/24/2021 12:45 PM STJ RAD/ONC, TREATMENT Radiation Oncology at [facility] Arrive at: [facility] door at end of hallway [phone] 08/25/2021 12:45 PM STJ RAD/ONC, TREATMENT Radiation Oncology at [facility] Arrive at: [facility] door at end of hallway [phone] 08/28/2021 12:45 PM STJ RAD/ONC, TREATMENT Radiation Oncology at [facility] door at end of hallway [phone] 08/29/2021 12:45 PM STJ RAD/ONC, TREATMENT Radiation Oncology at [facility] Arrive at: [facility] door at end of hallway [phone] 08/30/2021 12:45 PM STJ RAD/ONC, TREATMENT Radiation Oncology at [facility] door at end of hallway [phone] 08/31/2021 12:45 PM STJ RAD/ONC, TREATMENT Radiation Oncology at [facility] Ar[facility] door at end of hallway [phone] 09/01/2021 12:45 PM STJ RAD/ONC, TREATMENT Radiation Oncology at [facility] Ar[facility] door at end of hallway [phone] 09/05/2021 12:45 PM STJ RAD/ONC, TREATMENT Radiation Oncology at [facility] Ar[facility] door at end of hallway [phone] Future Orders Complete By Expires Referral to Home Health [REF34 Custom] As directed Process Instructions: If no progress note charted, please enter Clinical details in comments. Scheduling Instructions: Comments: DOCUMENTATION FOR VNA SERVICES PATIENT'S LOCATION: Wero Sadler ? [address] [facility] [address] mobile Continuous Absorption Process Operator's Name: Patient and significant other Amy In discussion with the attending physician, it is certified that this patient is under their care and that they, or a Nurse Practitioner, Clinical Nurse Specialist or Physician Shingle Packer who is working directly with them, had [...] program if appropriate. HOME HEALTH CARE AGENCY: [facility] ?? PHONE: [phone] ??FAX: [phone] ?? Start of care: 24-48 hrs after [...] this patient's PCP: ??Alo Carey, DO ? [address] [facility] / [place] [address] ?[phone] All VNA agencies which cover the area of patient's residence have been reviewed, either verbally alberto writing, and patient/family have chosen the home health care agency noted. Questions: Disciplines Requested: Physical Therapy Occupational Therapy Inpatient Provider Contact Information: Sandra Murphy MD Internal Medicine, PGY-3 [facility], Pager [phone] Discharge References/Attachments: Discharge References/Attachments None documented in [...] Please continue to take aspirin 81mg daily, [id number] daily, atorvastatin 80mg daily. 3) Thiamine, vitamins [...] PM STJ RAD/ONC, TREATMENT [facility] 07/27/2021 2:45 PM STJ RAD/ONC, TREATMENT [facility] 07/28/2021 1:45 PM STJ RAD/ONC, TREATMENT STJ Rad Trt [facility] 08/01/2021 12:45 PM STJ RAD/ONC, TREATMENT [facility] 08/02/2021 12:45 PM STJ RAD/ONC, TREATMENT [facility] 08/03/2021 12:45 PM STJ RAD/ONC, TREATMENT [facility] 08/04/2021 1:00 PM STJ RAD/ONC, TREATMENT [facility] 08/07/2021 12:45 PM STJ RAD/ONC, TREATMENT [facility] 08/08/2021 12:45 PM STJ RAD/ONC, TREATMENT [facility] 08/09/2021 12:45 PM STJ RAD/ONC, TREATMENT [facility] 08/10/2021 12:45 PM STJ RAD/ONC, TREATMENT [facility] 08/11/2021 1:00 PM STJ RAD/ONC, TREATMENT [facility] 08/14/2021 12:45 PM STJ RAD/ONC, TREATMENT [facility] 08/15/2021 12:45 PM STJ RAD/ONC, TREATMENT [facility] 08/16/2021 12:45 PM STJ RAD/ONC, TREATMENT [facility] 08/17/2021 12:45 PM STJ RAD/ONC, TREATMENT [facility] 08/18/2021 12:45 PM STJ RAD/ONC, TREATMENT [facility] 08/21/2021 12:45 PM STJ RAD/ONC, TREATMENT [facility] 08/22/2021 12:45 PM STJ RAD/ONC, TREATMENT [facility] 08/23/2021 12:45 PM STJ RAD/ONC, TREATMENT [facility] 08/24/2021 12:45 PM STJ RAD/ONC, TREATMENT [facility] 08/25/2021 12:45 PM STJ RAD/ONC, TREATMENT [facility] 08/28/2021 12:45 PM STJ RAD/ONC, TREATMENT [facility] 08/29/2021 12:45 PM STJ RAD/ONC, TREATMENT [facility] 08/30/2021 12:45 PM STJ RAD/ONC, TREATMENT [facility] 08/31/2021 12:45 PM STJ RAD/ONC, TREATMENT [facility] 09/01/2021 12:45 PM STJ RAD/ONC, TREATMENT [facility] 09/05/2021 12:45 PM STJ RAD/ONC, TREATMENT [facility] Your Inpatient Doctor: MD Patricia Jaramillo MD Dineth M Bandarage, MD Your Primary Care Provider: Alo Carey DO [phone] For questions regarding this document or issues relating to this hospitalization on the Medical Service, please contact your inpatient physician through the [facility] Routeman . Issues afterhours and on weekends will be handled by the Hospitalist staff on-call. documented in this encounter Medications at Time of Discharge Medication Sig Dispensed Refills Start Date End Date omega 5-ift-rsk-fish oil 250-350-1,000 mg Capsule Take 1,000 mg [...] spent >30 minutes (Day of Discharge Code 08374) involved in the final examination of the [...] referrals are placed. [facility]. PHONE: [phone] FAX: [phone] Expected date of discharge: 07/21/21 Referral routed to the Beaming Inspector for matching with agency/vendor and to provide any required information. Leah Ortega RN [facility] Phone [phone] Pager [phone] * Denys Kimball, OT - 07/21/2021 10:33 [...] hypertensive postop period. ?? Pt transferred from [facility] after waking up on 07/18 altered [...] 29 (10:33-11:02 (self care mgmt x2)) Pager: [phone] DENYS KIMBALL, OT 07/21/2021 Occupational Therapy Rehabilitation Department * Gaby Ro - 07/20/2021 1:35 PM EDT Nutrition Services Note - Low Nutrition Acuity Wero Sadler is a 71 y.o. male Reason for intervention: ICU admit Nutrition Plan: Continue diet order Lasix noted B1 and Folvite noted Encourage good po Continued assistance with ordering appreciated from nursing team Pt screened for ICU nutrition eval. Unable to connect with pt d/t status, appeals writer spoke with nurse and conducted a chart [...] nausea and no vomiting Last Bowel Movement: (station captain) Nutrition services to follow weekly through [...] for hypertensive postop period. Pt transferred from [facility] after waking up on 07/18 altered [...] Frequency (PT): Monitor Time IN / OUT: 2772-1821 Total Minutes, Physical Therapy: 25 (TEFx2). Melva Diego PT DPT 07/20/2021 Pager: [phone] Physical Therapy Inpatient Rehabilitation Department * Tabitha Del Castillo MD - 07/20/2021 8:12 AM EDT [facility] Medicine Progress Note Wero Sadler 71 y.o. 1950 [id number] Date/Time: 07/20/2021 8:12 AM Date of Admission: [...] focal stroke versus reperfusion phenomena d/t P2 PRODUCTION PROOFREADER stenosis and hypertension. As we are beyond [...] of reperfusion injury secondary to P2 segment PRODUCTION PROOFREADER stenosis and postoperative hypertension #s/p TCAR -high [...] of two midnights or is on the [facility] inpatient only procedure list (status C) Tabitha [...] right posterior cerebral artery Cory Cai MD [facility] medicine service, PGY1 Pager [phone] * Wojciech Madera MD - 07/20/2021 7:04 [...] 0.56* Last Ca, Mg, Phos Recent Labs 07/21/21 0030 CALCIUM 8.7 PHOS 3.8 MAGNESIUM 0.96 Last [...] page with further questions or concerns. Charleen linda 3040 07/21/2021 7:04 AM * Tammy Mukherjee, TRANSPORT TRUCK DRIVER - 07/19/2021 1:38 PM EDT 07/19/21 1202 Oxygen Therapy O2 Device RA SpO2 96 % Resp 18 Pt on room air jacquie well Pt has no treatments ordered at this time Will continue to monitor pt * Esau Mcclain Kvng - 07/19/2021 10:18 AM EDT ICU PROGRESS NOTE DOA: 07/18/2021 Room: [address] Length of Stay: 1 ICU Length [...] for hypertensive postop period. Pt transferred from [facility] after waking up on 07/18 altered [...] midline Motor: Normal bulk and tone throughout, assistant designer is 4/5 in L hand, toes downward, [...] acetaminophen PRN Core: Code status: [facility] //////////////////////////////////////////////////////////////////////////////// //////////////////// /////////////////////////////////////////////////Attestation: IS PATIENT [...] hypertensive postop period. ?? Pt transferred from [facility] after waking up on 07/18 altered [...] ??? Colon adenocarcinoma 2009 recieved chemo in [place] ??? Coronary artery disease ??? Coronary artery [...] performed by Basim Barr MD at [facility] MAIN OR ??? PRO LASER VAPORIZATION SURGERY PROSTATE, COMPLETE Midline 02/02/2021 CYSTO, LASER TURP (WRVU 12.15) performed by Cayetano Engle MD at [facility] MAIN OR ??? PRO PLACE TRANSCATHETER STENT, CCA W EMBOLIC PROECT Right 07/14/2021 @TRANSCATH INTRAVASCULAR STENT,CAROTID,PERC,W\EMBOLIC PROT. (WRVU 18) performed by Basim Barr MD at [facility] MAIN OR ??? PRO TOTAL HIP ARTHROPLASTY Left 10/10/2020 TOTAL HIP ARTHROPLASTY - POSTERIOR (WRVU 20.72) performed by Ismael Wu MD at [facility] MAIN OR Social History: Home setup: Pt [...] outlinedin this evaluation. Time IN / OUT: 4831-1342 Total Minutes, Physical Therapy: 26 (eval). 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 Wero had right CEA after lesion found in June 2018 and left CEA with CABG in December 2018 in [place]. He had recurrence of left tunnel vision while working that persisted as 99% vision loss. 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 He underwent TCAR last week by [facility] vascular surgery with good result and recovery of vision. He was discharged home 07/17 in stable condition. Wero brothers found him altered with visual hallucinations on 07/18 so they called vascular surgery and brought him to ED where his SBP was [id number]. He was transferred to [facility] for definitive management. Originally thought to have [...] high risk prostatic cancer planning GnRH antagonist (ja and June) and radiation therapy starting 07/28. [...] ??? Colon adenocarcinoma 2009 recieved chemo in [place] ??? Coronary artery disease ??? Coronary artery [...] performed by Basim Barr MD at [facility] MAIN OR ??? PRO LASER VAPORIZATION SURGERY PROSTATE, COMPLETE Midline 02/02/2021 CYSTO, LASER TURP (WRVU 12.15) performed by Cayetano Engle MD at [facility] MAIN OR ??? PRO PLACE TRANSCATHETER STENT, CCA W EMBOLIC PROECT Right 07/14/2021 @TRANSCATH INTRAVASCULAR STENT,CAROTID,PERC,W\EMBOLIC PROT. (WRVU 18) performed by Basim Barr MD at [facility] MAIN OR ??? PRO TOTAL HIP ARTHROPLASTY Left 10/10/2020 TOTAL HIP ARTHROPLASTY - POSTERIOR (WRVU 20.72) performed by Ismael Wu MD at [facility] MAIN OR Social History: Occupational History ??? 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 Smoking status: Former Smoker [...] a dye used during vascular procedure at [facility] in [place]: shaking Has tolerated MRI and CT contrast. [...] completed shifts: In: 1264 [I.V.:1174; Other:90] Out: 1864 [Urine:1864] General: lethargic. Conversational Eyes: left eye prosthesis. [...] Neuro: no focal deficit LABS: Recent Labs 07/19/2111407/18/21203207/14/21 0716 WBC 6.5 7.1 7.4 HGB 10.9* 11.8* 13.0* HCT 32.4* 35.1* 39.4* PLATELET 216 219 234 Recent Labs 07/19/2111407/18/21203207/14/21 0716 NA 138 138 138 K 3.6 3.7 4.3 CL 104 102 103 CO2 BUN 9* 9* 13 CREATININE 0.56* 0.62* 0.71* Recent Labs 07/19/2111407/18/21203207/14/21 0716 CALCIUM 8.6 9.0 9.0 MAGNESIUM 1.06 [...] who have questions please contact the health adult care provider that requested your imaging first. Electronically signed by: Yessi Rivas MD, [facility] ([phone]), at 07/19/2021 8:38 AM Request For 2nd [...] who have questions please contact the health adult care provider that requested your imaging first. Electronically signed by: Andrew Canseco MD, [facility] ([phone]), at 07/19/2021 8:15 AM ASSESSMENT and PLAN: [...] was acutely confused and was transferred to [facility] for this. Unfortunately I cannot see a VBG from the [facility] ED. Alternatively the more likely differential includes [...] Cai MD Hospital medicine service, PGY-1 Pager #[phone] Attending Staff Admission Documentation I certify that [...] the patient discharged home 07/17/21 on DAPT andree new prescription for lisinopril as the patient was hypertensive in the postoperative period. Vision in eye improved post-operatively, Patient now present as a transfer from [facility] after waking up 07/18 altered, apparently [...] acute alcohol withdrawal, patient was transferred to [facility] for tight blood pressure control with goal [...] ??? Colon adenocarcinoma 2009 recieved chemo in [place] ??? Coronary artery disease ??? Coronary artery [...] performed by Basim Barr MD at [facility] MAIN OR ??? PRO LASER VAPORIZATION SURGERY PROSTATE, COMPLETE Midline 02/02/2021 CYSTO, LASER TURP (WRVU 12.15) performed by Cayetano Engle MD at [facility] MAIN OR ??? PRO PLACE TRANSCATHETER STENT, CCA W EMBOLIC PROECT Right 07/14/2021 @TRANSCATH INTRAVASCULAR STENT,CAROTID,PERC,W\EMBOLIC PROT. (WRVU 18) performed by Basim Barr MD at [facility] MAIN OR ??? PRO TOTAL HIP ARTHROPLASTY Left 10/10/2020 TOTAL HIP ARTHROPLASTY - POSTERIOR (WRVU 20.72) performed by Ismael Wu MD at [facility] MAIN OR Social History Tobacco Use [...] hour(s)) Lactate, whole blood, send to lab ([facility]) Result Value Ref Range Lactate WB 1.2 [...] Value Ref Range T&S only valid at [facility] Hosp POCT Glucose Result Value Ref Range POC Glucose 146 65 - 199 mg/dL Imaging: CTH from [facility], 07/18 CTH/CTA pending second read EKG: [...] swallow screen - maintain NPO until formal ERGONOMIC SPECIALIST eval if pt fails bedside swallow eval [...] Assessment Rehab Services Consulted PT/OT: Not indicated ERGONOMIC SPECIALIST: Not indicated Family Meeting in Last 5 Days No Code Status - Attempt Cardiopulmonary Resuscitation - Inpatient Dispo - ICU Salome Rodriguez APRN 07/18/2021 NCCU pager [phone] documented in this encounter Miscellaneous Notes * [...] Lisinopril for hypertensive postop period. Transferred to [facility] on 07/19 from [facility] for AMS, imbalance, and visual hallucinations. [...] a dye used during vascular procedure at [facility]: shaking Has tolerated MRI and CT contrast. [...] 1209 153/65 -- -- -- -- -- 05/19/22 1205 153/65 -- -- 62 18 96 [...] IV Piggyback:110] Out: 925 [Urine:925] Recent Labs 07/20/21 0015 07/19/2111407/18/21203207/14/21 0716 WBC 6.7 6.5 7.1 7.4 HGB 10.1* 10.9* 11.8* 13.0* HCT 30.3* 32.4* 35.1* 39.4* PLATELET 226 216 219 234 NEUTROABS 4.41 4.33 4.57 -- Recent Labs 07/20/21 0015 07/19/21 0115 07/18/21203207/14/21 0716 NA 137 138 138 138 K 3.9 3.6 3.7 4.3 CL 104 104 102 103 CO2 20* 21* 22 22 BUN 16 9* 9* 13 CREATININE 0.59* 0.56* 0.62* 0.71* GLUCOSE 164 168 160 184 Recent Labs 07/20/21 0015 07/19/21 0115 07/18/212032 CALCIUM 8.3* 8.6 9.0 MAGNESIUM 0.96 1.06 0.84 PHOS 3.7 3.2 2.7 Recent Labs 07/18/212032 AST 22 ALT 16 ALKPHOS 96 BILITOT 1.4* BILIDIR 0.3 No results for input(s): TROPONINT, CK in the last 168 hours. No results for input(s): PHART, TEA5GUV, PO2ART, HEI4STL in the last 168 hours. Recent Labs [...] who have questions please contact the health adult care provider that requested your imaging first. Electronically signed by: Yessi Rivas MD, [facility] ([phone]), at 07/19/2021 8:38 AM Request For 2nd [...] who have questions please contact the health adult care provider that requested your imaging first. Electronically signed by: Andrew Canseco MD, [facility] ([phone]), at 07/19/2021 8:15 AM MRI Angiogram Head [...] who have questions please contact the health adult care provider that requested your imaging first. Electronically signed by: Rian Madrid MD, [facility] ([phone]), at 07/20/2021 8:22 AM Assessment and Plan: [...] andLisinopril for hypertensive postop period. Transferred to [facility] on 07/19 from [facility] for AMS, imbalance, and visual hallucinations. [...] Sparks MD Please page Vascular Neurology at #[phone] with any questions. [place] [address] Associated attestation - Cathryn Fuentes MD - [...] COVID test: Lab Results Component Value Date [id number] Not Detected 07/19/2021 Present on Admission: ??? Altered mental status, unspecified altered mental status type Hospitalizations Within the Past 30 Days: current reason for admission unrelated to previous admission, other (see comments) Patient receiving hospital care under Inpatient status. Admission order reviewed. Primary Insurance on file: MEDICARE Secondary Insurance on file:@ Primary care provider on file: Alo Carey DO [phone] Pharmacy: [id number] - [place], [place] - [address] [facility] [facility] [address] [facility] [address] [facility] [place] [address] [facility] [phone] Advance Care Planning: Attempt Cardiopulmonary Resuscitation - Inpatient <no information> -Advanced Directive: No, need to discuss Current Functional Ability: Independent Functional Status Prior to Admission: Independent Home Environment: Others in the home: sibling(s) (patient lives with his brother in [place], [place]). Current Living Arrangements: home/apartment/condo. Accessibility Concerns:Pt lives with his brother in a two level home with 2 CLARIBEL and a FOS with B railings to the second floor where pt's bedroom is located. Current DME: cane - straight, walker - standard [address] [facility] [address] Social & Family Supports: All names listed below confirmed with patient as current and correct Extended Emergency Contact Information Primary Emergency Contact: AMY ROPER Address: [address] [place] [id number] [place] [address] of [place] Mobile Relation: Significant Other Secondary Emergency Contact: SERGIO SADLER Mobile Relation: Sibling Current Care Provided by: self, other (see comments) ([facility] NCC nursing care team; boarding in [facility]) Transportation: no concerns Transportation Anticipated: family or friend will provide Assessment: Patient with no apparent RNCM/SW needs at this time. No housing, transportation, insurance, resources concerns identified at this time. Supports in place to achieve a safe post-hospital transition. No identified barriers to accessing necessary care and/or follow-up after discharge. Plan: Patient to d/c to home in [place], [place] via private car when medically ready. Registered Nurse Conventional Mortgage Underwriter / Combat Rifle Crewmember will continue to follow patient???s progress and remain available if situation changes for coordination of care, psychosocial support and/or discharge planning. Office of Care Management Erika Kay RN [facility] OCM spent grain dryer Pager: [phone] * Plan of Care - Lashonda Chin [...] hypertensive postop period. ?? Pt transferred from [facility] after waking up on 07/18 altered [...] Discharge planning. Total Minutes, Occupational Therapy: 24 [phone] (eval)) 2017 OT Evaluation Code Rationale: Diagnosis [...] of functional outcome. Denys Kimball, OTR Pager [phone] Occupational Therapy Rehabilitation Department * Consult Note - Milagros Forbes MD - 07/19/2021 12:01 AM EDT [facility] Department of Vascular Surgery Consult Note CC: [...] visual hallucinations, prompting an ED visit at [facility]. Exam there was notable for headache and LUE pronator drift. SBP was in 160-170s per OSH report. CT/CTA showed patent R carotid stent graft and intracranial vessels. He was transferred to [facility] with concerns for reperfusion injury s/p TCAR [...] ??? Colon adenocarcinoma 2009 recieved chemo in [place] ??? Coronary artery disease ??? Coronary artery [...] performed by Basim Barr MD at [facility] MAIN OR ??? PRO LASER VAPORIZATION SURGERY PROSTATE, COMPLETE Midline 02/02/2021 CYSTO, LASER TURP (WRVU 12.15) performed by Cayetano Engle MD at [facility] MAIN OR ??? PRO PLACE TRANSCATHETER STENT, CCA W EMBOLIC PROECT Right 07/14/2021 @TRANSCATH INTRAVASCULAR STENT,CAROTID,PERC,W\EMBOLIC PROT. (WRVU 18) performed by Basim Barr MD at [facility] MAIN OR ??? PRO TOTAL HIP ARTHROPLASTY Left 10/10/2020 TOTAL HIP ARTHROPLASTY - POSTERIOR (WRVU 20.72) performed by Ismael Wu MD at [facility] MAIN OR Medications No current facility-administered medications [...] a dye used during vascular procedure at [facility] in [place]: shaking Has tolerated MRI and CT contrast. Family History: Family History Problem Relation Age of Onset ??? Diabetes Father Social History: Social History Socioeconomic History ??? Marital status: Spouse name: Not on file ??? Number of children: Not on file ??? Years of education: Not on file ??? Highest education level: Not on file Occupational History ??? 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 Smoking status: Former Smoker [...] Extremities: Warm and well-perfused Labs: Recent Labs 07/18/21203207/14/21 0716 05/04/21 1134 WBC 7.1 7.4 6.7 HGB 11.8* 13.0* 13.5* HCT 35.1* 39.4* 41.2 PLATELET 219 234 211 Recent Labs 07/18/21203207/14/2116 05/04/21 1134 NA 138 138 140 K 3.7 4.3 4.6 CL 102 103 104 CO2 22 22 25 BUN 9* 13 19 CREATININE [...] Discussed with Dr. Canela, vascular surgery fellow cotton factor, and communicated to the primary team. Milagros Forbes MD Vascular Surgery Consult Pager [phone] documented in this encounter Plan of Treatment Upcoming Encounters Date Type Department Care Team (Late st Contact Info) Description 03/24/2024 9:00 AM EST TH Visit (TeleHealth) Radiation Oncology at [address] [phone] Ping Moore PA [facility] [address] [place] [address] 03/26/2024 9:30 AM EST Office Visit Hematology/Oncology at [address] [phone] Yessi Renee APRN [address] [place] [address] DR HEMATOLOGY AND ONCOLOGY [place], [place] [phone] 03/26/2024 9:30 AM EST Infusion Hematology Oncology at [address] [phone] 04/09/2024 9:30 AM EST Office Visit Hematology/Oncology at [address] [phone] Cl Hess MD [facility] [place] [address] HEMATOLOGY AND ONCOLOGY [place], [place] [phone] 04/09/2024 10:00 AM EST Infusion Hematology Oncology at [address] [phone] 04/23/2024 9:30 AM EST Office Visit Hematology/Oncology at [address] [phone] Cl Hess MD [facility] [place] [address] [address] HEMATOLOGY AND ONCOLOGY [place], [place] [phone] 04/23/2024 10:00 AM EST Infusion Hematology Oncology at [address] [phone] 05/18/2024 4:30 PM EDT TH Visit (TeleHealth) [place] [phone] Malachi Rothman MD [facility] [place] [address] Scheduled Referrals Name Type Priority Associated Diagnoses [...] PM EDT [facility] THIAMIN LVL(VITAMIN B1) -MOORE Routine 07/19/2021 3:25 PM EDT POCT GLUCOSE [...] 07/19/2021 1:15 AM EDT RAPID COVID-19 PCR ([facility]/APD/[facility]) Routine 07/19/2021 1:10 AM EDT POCT GLUCOSE [...] * POCT Glucose (07/21/2021 11:58 AM EDT) [facility] Glucose, POC 179 65 - 199 mg/dL [facility] Comment: Supplemental ranges: <140 mg/dL before meals <180 mg/dL all other times of the day Blood 07/21/2021 11:5 8 AM EDT 07/21/2021 11:58 AM EDT Tabitha Del Castillo MD POINT OF CARE DANIEL T ORDERABLES [facility] [place] [address] * POCT Glucose (07/21/2021 8:07 AM EDT) Glucose, POC 149 65 - 199 mg/dL [facility] Comment: Supplemental ranges: <140 mg/dL before meals <180 mg/dL all other times of the day Blood 07/21/2021 8:07 AM EDT 07/21/2021 8:07 AM EDT Tabitha Del Castillo MD POINT OF CARE DANIEL T ORDERABLES Performing Organization Address City/[facility] Co de Phone Number [facility] [place] [address] * POCT Glucose (07/21/2021 4:03 AM EDT) Glucose, POC 163 65 - 199 mg/dL [facility] Comment: Supplemental ranges: <140 mg/dL before meals <180 mg/dL all other times of the day Blood 07/21/2021 4:03 AM EDT 07/21/2021 4:03 AM EDT Tabitha Del Castillo MD POINT OF CARE DANIEL T ORDERABLES [facility] [place] [address] * Differential, Automated (07/21/2021 12:30 AM EDT) Neutrophil % 67.0 % [facility] Neutrophil Absolute 4.65 1.70 - 6.10 x10(3)/mcL [facility] Lymph % 21.6 % [facility] Lymphocytes Abs 1.5 0.9 - 3.2 x10(3)/[facility] Monocyte % 8.9 % [facility] Monocyte Abs 0.6 0.3 - 0.9 x10(3)/[facility] Eos % 1.9 % [facility] Eosinophils Abs 0.1 0.0 - 0.4 x10(3)/[facility] Basophil % 0.3 % [facility] Baso Absolute 0.0 0.0 - 0.1 x10(3)/[facility] Immature Gran % 0.30 % [facility] Comment: Immature granulocytes(IG's)percentage and absolute count will include metamyelocytes, myelocytes, and promyelocytes. Blood smears from CBCs yielding IG's will be scanned manually for concordance. If this scan disagrees with the automated IG or if promyelocytes are noted, a manual differential will be performed. Immature Gran Absolute 0.02 0.00 - 0.04 x10(3)/[facility] Blood 07/21/2021 12:3 0 AM EDT 07/21/2021 12:42 AM EDT Narrative Resulting Agency Comment Spec In Lab Abbi CORMIER HEMATOLOGY ORDERABL ES [facility] [place] [address] * (ABNORMAL) Hemogram (07/21/2021 12:30 AM EDT) White Blood Cell 6.9 4.0 - 9.5 x10(3)/[facility] Red Blood Cell 3.24(L) 4.58 - 5.54 x10(6)/[facility] Hemoglobin 10.3(L) 13.7 - 16.5 g/dL [facility] Hematocrit 30.8(L) 40.5 - 48.5 % [facility] Mean Cell Volume 95.1(H) 82.9 - 93.1 fL [facility] Mean Cell Hemoglobin 31.8 27.5 - 32.1 pg [facility] Mean Cell Hemoglobin Concentration 33.4 32.0 - 35.7 g/dL [facility] Platelet 229 145 - 357 x10(3)/mc L [facility] RDW Standard Deviation 47.2(H) 36.0 - 45.0 fL [facility] RDW coefficient of variation 13.6 11.4 - 13.8 % [facility] Mean Platelet Volume 10.1 7.6 - 12.9 [facility] NRBC% auto 0.0 % [facility] NRBC Absolute 0.000 0.000 - 0.000 x10(3)/mc L [facility] Blood 07/21/2021 12:3 0 AM EDT 07/21/2021 12:42 AM EDT Narrative Resulting Agency Comment Spec In Lab Abbi CORMIER HEMATOLOGY ORDERABL ES Performing Organization Address City/[facility]/ZIP Co de Phone Number [facility] [place] [address] * Phosphorus (07/21/2021 12:30 AM EDT) Phosphorus 3.8 2.5 - 4.5 mg/dL [facility] Blood 07/21/2021 12:3 0 AM EDT 07/21/2021 12:42 AM EDT Narrative Resulting Agency Comment Spec In Lab Patricia Briggs MD CHEMISTRY ORDERABLES Performing Organization Address City/[facility]/ZIP Co de Phone Number [facility] [place] [address] * Magnesium (07/21/2021 12:30 AM EDT) Magnesium 0.96 0.69 - 1.07 mmol/L [facility] Blood 07/21/2021 12:3 0 AM EDT 07/21/2021 12:42 AM EDT Narrative Resulting Agency Comment Spec In Lab Patricia Briggs MD CHEMISTRY ORDERABLES [facility] [place] [address] * (ABNORMAL) Basic Metabolic Panel (non-fasting) (07/21/2021 12:30 AM EDT) Glucose 166 65 - 199 mg/dL [facility] Comment:Diabetes: >=200 mg/d L plus symptoms Blood Urea Nitrogen 20 10 - 20 mg/dL [facility] Creatinine 0.65(L) 0.80 - 1.50 mg/dL [facility] Sodium 136 135 - 145 mmol/L [facility] Potassium 3.7 3.5 - 5.0 mmol/L [facility] Comment: Please note: ??Patients with WBC >100,000 may have falsely elevated Potassium levels. ??For accurate Potassium quantification in these patients send serum separator tube (gold top) for subsequent determinations. ??Contact the Clinical Chemistry Laboratory if there are any questions. Chloride 103 98 - 107 mmol/L [facility] Carbon Dioxide 21(L) 22 - 31 mmol/L [facility] Anion Gap 12 5 - 15 mmol/L [facility] Calcium 8.7 8.5 - 10.5 mg/dL [facility] Est Glomerular Filtration Rate 97 >=60 mL/min/1. 73 m?? [facility] Comment: This patient? s [...] In Lab Patricia Briggs MD CHEMISTRY ORDERABLES [facility] [place] [address] * POCT Glucose (07/21/2021 12:13 AM EDT) Glucose, POC 161 65 - 199 mg/dL [facility] Comment: Supplemental ranges: <140 mg/dL before meals <180 mg/dL all other times of the day Blood 07/21/2021 12:1 3 AM EDT 07/21/2021 12:13 AM EDT Tabitha Del Castillo MD POINT OF CARE DANIEL T ORDERABLES Performing Organization Address City/[facility]/ZIP Co de Phone Number [facility] [place] [address] * POCT Glucose (07/20/2021 7:52 PM EDT) Glucose, POC 179 65 - 199 mg/dL [facility] Comment: Supplemental ranges: <140 mg/dL before meals <180 mg/dL all other times of the day Blood 07/20/2021 7:52 PM EDT 07/20/2021 7:52 PM EDT Tabitha Del Castillo MD POINT OF CARE DANIEL T ORDERABLES [facility] [place] [address] * POCT Glucose (07/20/2021 4:15 PM EDT) Glucose, POC 176 65 - 199 mg/dL [facility] Comment: Supplemental ranges: <140 mg/dL before meals <180 mg/dL all other times of the day Blood 07/20/2021 4:15 PM EDT 07/20/2021 4:15 PM EDT Tabitha Del Castillo MD POINT OF CARE DANIEL T ORDERABLES [facility] [place] [address] * POCT Glucose (07/20/2021 11:27 AM EDT) Glucose, POC 186 65 - 199 mg/dL [facility] Comment: Supplemental ranges: <140 mg/dL before meals <180 mg/dL all other times of the day Blood 07/20/2021 11:2 7 AM EDT 07/20/2021 11:27 AM EDT Tabitha Del Castillo MD POINT OF CARE DANIEL T ORDERABLES [facility] [place] [address] * POCT Glucose (07/20/2021 7:41 AM EDT) Glucose, POC 155 65 - 199 mg/dL [facility] Comment: Supplemental ranges: <140 mg/dL before meals <180 mg/dL all other times of the day Blood 07/20/2021 7:41 AM EDT 07/20/2021 7:41 AM EDT Tabitha Del Castillo MD POINT OF CARE DANIEL T ORDERABLES [facility] [place] [address] * POCT Glucose (07/20/2021 2:53 AM EDT) Glucose, POC 153 65 - 199 mg/dL [facility] Comment: Supplemental ranges: <140 mg/dL before meals <180 mg/dL all other times of the day Blood 07/20/2021 2:53 AM EDT 07/20/2021 2:53 AM EDT Tabitha Del Castillo MD POINT OF CARE DANIEL T ORDERABLES Performing Organization Address City/[facility] Co de Phone Number [facility] [place] [address] * POCT Glucose (07/20/2021 12:20 AM EDT) Glucose, POC 163 65 - 199 mg/dL [facility] Comment: Supplemental ranges: <140 mg/dL before meals <180 mg/dL all other times of the day Blood 07/20/2021 12:2 0 AM EDT 07/20/2021 12:20 AM EDT Tabitha Del Castillo MD POINT OF CARE DANIEL T ORDERABLES Performing Organization Address City/[facility]/ZIP Co de Phone Number [facility] [place] [address] * Differential, Automated (07/20/2021 12:15 AM EDT) Neutrophil % 65.5 % [facility] Neutrophil Absolute 4.41 1.70 - 6.10 x10(3)/[facility] Lymph % 21.1 % [facility] Lymphocytes Abs 1.4 0.9 - 3.2 x10(3)/[facility] Monocyte % 10.8 % [facility] Monocyte Abs 0.7 0.3 - 0.9 x10(3)/[facility] Eos % 2.1 % [facility] Eosinophils Abs 0.1 0.0 - 0.4 x10(3)/[facility] Basophil % 0.4 % [facility] Baso Absolute 0.0 0.0 - 0.1 x10(3)/[facility] Immature Gran % 0.10 % [facility] Comment: Immature granulocytes(IG's)percentage and absolute count will include metamyelocytes, myelocytes, and promyelocytes. Blood smears from CBCs yielding IG's will be scanned manually for concordance. If this scan disagrees with the automated IG or if promyelocytes are noted, a manual differential will be performed. Immature Gran Absolute 0.01 0.00 - 0.04 x10(3)/mcL [facility] Blood 07/20/2021 12:1 5 AM EDT 07/20/2021 12:34 AM EDT Narrative Resulting Agency Comment Spec In Lab Abbi CORMIER HEMATOLOGY ORDERABL ES [facility] [place] [address] * (ABNORMAL) Hemogram (07/20/2021 12:15 AM EDT) White Blood Cell 6.7 4.0 - 9.5 x10(3)/mc L [facility] Red Blood Cell 3.25(L) 4.58 - 5.54 x10(6)/mc L [facility] Hemoglobin 10.1(L) 13.7 - 16.5 g/dL [facility] Hematocrit 30.3(L) 40.5 - 48.5 % [facility] Mean Cell Volume 93.2(H) 82.9 - 93.1 fL [facility] Mean Cell Hemoglobin 31.1 27.5 - 32.1 pg [facility] Mean Cell Hemoglobin Concentration 33.3 32.0 - 35.7 g/dL [facility] Platelet 226 145 - 357 x10(3)/mc L [facility] RDW Standard Deviation 45.3(H) 36.0 - 45.0 fL [facility] RDW coefficient of variation 13.2 11.4 - 13.8 % [facility] Mean Platelet Volume 10.3 7.6 - 12.9 fL [facility] NRBC% auto 0.0 % [facility] NRBC Absolute 0.000 0.000 - 0.000 x10(3)/mc L [facility] Blood 07/20/2021 12:1 5 AM EDT 07/20/2021 12:34 AM EDT Narrative Resulting Agency Comment Spec In Lab Abbi CORMIER HEMATOLOGY ORDERABL ES Performing Organization Address City/[facility]/ZIP Co de Phone Number [facility] [place] [address] * Magnesium (07/20/2021 12:15 AM EDT) Magnesium 0.96 0.69 - 1.07 mmol/L [facility] Blood 07/20/2021 12:1 5 AM EDT 07/20/2021 12:34 AM EDT Narrative Resulting Agency Comment Spec In Lab Patricia Briggs MD CHEMISTRY ORDERABLES Performing Organization Address City/[facility] Co de Phone Number [facility] [place] [address] * Phosphorus (07/20/2021 12:15 AM EDT) Phosphorus 3.7 2.5 - 4.5 mg/dL [facility] Blood 07/20/2021 12:1 5 AM EDT 07/20/2021 12:34 AM EDT Narrative Resulting Agency Comment Spec In Lab Patricia Briggs MD CHEMISTRY ORDERABLES Performing Organization Address City/[facility]/ZIP Co de Phone Number [facility] [place] [address] * (ABNORMAL) Basic Metabolic Panel (non-fasting) (07/20/2021 12:15 AM EDT) Glucose 164 65 - 199 mg/dL [facility] Comment:Diabetes: >=200 mg/d L plus symptoms Blood Urea Nitrogen 16 10 - 20 mg/dL [facility] Comment:result rechecked-[facility] Creatinine 0.59(L) 0.80 - 1.50 mg/dL [facility] Sodium 137 135 - 145 mmol/L [facility] Potassium 3.9 3.5 - 5.0 mmol/L [facility] Comment: Please note: ??Patients with WBC >100,000 may have falsely elevated Potassium levels. ??For accurate Potassium quantification in these patients send serum separator tube (gold top) for subsequent determinations. ??Contact the Clinical Chemistry Laboratory if there are any questions. Chloride 104 98 - 107 mmol/L [facility] Carbon Dioxide 20(L) 22 - 31 mmol/L [facility] Anion Gap 13 5 - 15 mmol/L [facility] Calcium 8.3(L) 8.5 - 10.5 mg/dL [facility] Est Glomerular Filtration Rate 100 >=60 mL/min/1. 73 m?? [facility] Comment: This patient? s [...] In Lab Patricia Briggs MD CHEMISTRY ORDERABLES [facility] [place] [address] * MRI Angiogram Head & MRI Brain [...] who have questions please contact the health adult care provider that requested your imaging first. ? Electronically signed by: Rian Madrid MD, [facility] ([phone]), at 07/20/2021 8:22 AM Narrative 07/20/2021 8:22 [...] segment of the right posterior cerebral artery. PRODUCTION PROOFREADER stenoses are similar appearance to those present [...] hemisphere, numbering three in total. No associated [id number] is present at these sites MRA: There is mild irregularity of the paraclinoid internal carotidarteries bilaterally. There is moderate focal stenosis of the inferior left [id number] origin. There is moderate to severe stenosis of the P2 segment of theleft posterior cerebral artery and mild/moderate smooth stenosis of the [id number] of the right posterior cerebral artery. PRODUCTION PROOFREADER stenoses are similar appearanceto those present on [...] patients who have questions please contactthe health adult care provider that requested your imaging first. Electronically signed by: Rian Madrid MD, [facility]([phone]), at 07/20/2021 8:22 AM Patricia Briggs MD IMG MRI ORDERABLES * (ABNORMAL) POCT Glucose (07/19/2021 7:46 PM EDT) Glucose, POC 211(H) 65 - 199 mg/dL [facility] Comment: Supplemental ranges: <140 mg/dL before meals <180 mg/dL all other times of the day Blood 07/19/2021 7:46 PM EDT 07/19/2021 7:46 PM EDT Tabitha Del Castillo MD POINT OF CARE DANIEL T ORDERABLES [facility] [address] [place] [address] * (ABNORMAL) BLOOD GAS 2 VENOUS (07/19/2021 4:16 PM EDT) pH, Venous 7.43(H) 7.32 - 7.42 [facility] PCO2, Venous 36(L) 41 - 51 mmHg [facility] PO2, Venous 42(H) 25 - 40 mmHg [facility] Bicarbonate, Venous 23.5 mmol/L [facility] Base Excess, Venous -0.8 mmol/L [facility] Hgb Blood Gas 11.5(L) 13.7 - 16.5 g/dL [facility] Oxyhemoglobin, Venous 77.7 % [facility] Carboxyhemoglob in, Venous 0.7 % [facility] Comment: Nonsmokers: 0.5-1.5% COHB Smokers: Variable, but usually less than 10% Toxic: 20-30% COHB Lethal: Greater than 60% COHB Methemoglobin, Venous 0.1 <=1.5 % [facility] Na Whole Blood 136 135 - 145 mmol/L [facility] K Whole Blood 3.4(L) 3.5 - 5.0 mmol/L [facility] Comment: Please note: Patients with WBC >100,000 may have falsely elevated Potassium levels. Contact the Clinical Chemistry Laboratory if there are any questions. ICa Whole Blood 1.14(L) 1.15 - 1.33 mmol/L [facility] Comment: Note: ??Total bilirubin higher than 20 mg/dL may lead to falsely low ionized calcium. CL Whole Blood 107 98 - 107 mmol/L [facility] Gluc Whole Bld 176 65 - 199 mg/dL [facility] Comment:Diabetes: >=200 mg/d L plus symptoms Lactate WB 1.1 0.5 - 2.2 mmol/L [facility] Fraction of Inspired Oxygen, Venous 21 % [facility] Blood Gas Source Venous [facility] Blood 07/19/2021 4:16 PM EDT 07/19/2021 4:16 PM EDT Patricia Briggs MD POINT OF CARE TEST Brady SANCHEZ Performing Organization Address [facility] Co de Phone Number [facility] [place] [address] * POCT Glucose (07/19/2021 4:03 PM EDT) Glucose, POC 183 65 - 199 mg/dL [facility] Comment: Supplemental ranges: <140 mg/dL before meals <180 mg/dL all other times of the day Blood 07/19/2021 4:03 PM EDT 07/19/2021 4:03 PM EDT Patricia Briggs MD POINT OF CARE TEST Brady SANCHEZ Performing Organization Address [facility] de Phone Number [facility] [place] [address] * Vitamin B1, whole blood (07/19/2021 3:25 PM EDT) Vit B1 Lvl Wb (JULY) 108 70 - 180 nmol/L [facility] Comment: ADDITIONAL INFORMATION This test was developed and its performance characteristics determined by [facility] in a manner consistent with CLIA requirements. This test has not been cleared or approved by the U.S. Food and Drug Administration. Test Performed by: [facility] - [address] [address] Sales Analyst: Mendez Alonzo M.D. Ph.D.; CLIA# [id number] Blood 07/19/2021 3:25 PM EDT 07/19/2021 4:08 PM EDT Narrative Resulting Agency Comment Spec In Lab Patricia Briggs MD LAB SEND OUT ORDERAB LES Performing Organization Address City/[facility]/ZIP Co de Phone Number [facility] [place] [address] * POCT Glucose (07/19/2021 11:53 AM EDT) Glucose, POC 153 65 - 199 mg/dL [facility] Comment: Supplemental ranges: <140 mg/dL before meals <180 mg/dL all other times of the day Blood 07/19/2021 11:5 3 AM EDT 07/19/2021 11:53 AM EDT Patricia Briggs MD POINT OF CARE TEST O RDERABLES Performing Organization Address [facility] Co de Phone Number [facility] [place] [address] * (ABNORMAL) Rapid Drug Screen w/o Confirmation, Urine (07/19/2021 10:45 AM EDT) Pathologist [facility] [place] Barbiturates Screen, Urine None Detected None Detected [facility] Comment: The barbiturate screen [...] Benzodiazepines Screen, Urine None Detected None Detected [facility] Comment: The benzodiazepines screen [...] Cocaine Screen, Urine None Detected None Detected [facility] Comment: The cocaine metabolites screen detects benzoylecgonine (Cocaine Metabolite) at concentrations >150 ng/mL. A ? Presumptive Positive? result indicates that the screening result was positive but has not yet been confirmed by a highly-specific method. As with any screen, occasional false positive results from cross-reacting substances may occur. Not for Medico-Legal Purposes. Methadone Metabolites Screen, Urine None Detected None Detected [facility] Comment: The methadone metabolite screen detects EDDP (major methadone metabolite) at concentrations >100 ng/mL. A ? Presumptive Positive? result indicates that the screening result was positive but has not yet been confirmed by a highly-specific method. As with any screen, occasional false positive results from cross-reacting substances may occur. Not for Medico-Legal Purposes. Opiate Screen, Urine None Detected None Detected [facility] Comment: The opiates screen [...] Cannabinoid Screen, Urine None Detected None Detected [facility] Comment: The marijuana metabolites screen detects the THC metabolite ([id number]-carboxy-delta 9-THC) at concentrations >20 ng/mL. A ? Presumptive Positive? result indicates that the screening result was positive but has not yet been confirmed by a highly-specific method. As with any screen, occasional false positive results from cross-reacting substances may occur. Not for Medico-Legal Purposes. Oxycodone Screen, Urine Presumptive Pos(A) None Detected [facility] Comment: The oxycodone screen detects oxycodone and oxymorphone at concentrations >100 ng/mL. A ? Presumptive Positive? result indicates that the screening result was positive but has not yet been confirmed by a highly-specific method. As with any screen, occasional false positive results from cross-reacting substances may occur. Not for Medico-Legal Purposes. Buprenorphine Screen, Urine None Detected None Detected [facility] Comment: The buprenorphine screen detects buprenorphine at concentrations >5 ng/mL. A ? Presumptive Positive? result indicates that the screening result was positive but has not yet been confirmed by a highly-specific method. As with any screen, occasional false positive results from cross-reacting substances may occur. Not for Medico-Legal Purposes. Fentanyl Screen, Urine None Detected None Detected [facility] Comment: The fentanyl screen detects fentanyl at concentrations >2 ng/mL. A ? Presumptive Positive? result indicates that the screening result was positive but has not yet been confirmed by a highly-specific method. As with any screen, occasional false positive results from cross-reacting substances may occur. Not for Medico-Legal Purposes. Tricyclics Screen, Urine None Detected None Detected [facility] Comment: The tricyclics screen [...] Ethanol Screen, Urine None Detected None Detected [facility] Comment:This urine ethanol a ssay detects ethanol at concentrations >/= 100 mg/L. Amphetamines Screen, Urine None Detected None Detected [facility] Comment: The amphetamine screen detects d-amphetamine and d-methamphetamine at concentrations >300 ng/mL. A ? Presumptive Positive? result indicates that the screening result was positive but has not yet been confirmed by a highly-specific method. As with any screen, occasional false positive results from cross-reacting substances may occur. Not for Medico-Legal Purposes. Adulterants Screen, Urine None Detected None Detected [facility] Comment: No adulteration or dilution of this urine sample was detected. All urine samples submitted for urine drugs of abuse analysis are tested for creatinine concentration, pH, and for the presence of oxidants, nitrites, and chromate. Urine 07/19/2021 10:4 5 AM EDT 07/19/2021 10:55 AM EDT Narrative Resulting Agency Comment Spec In Lab Debi CORMIER CHEMISTRY ORDERABLES Performing Organization Address [facility] Co de Phone Number [facility] [place] [address] * Rapid Drug Screen, Urine (DARWIN Request) (07/19/2021 10:45 AM EDT) DARWIN Conf Requested No [facility] Comment: Collection date/time has been modified to: 10:45:00. ??Previous collection date/time: 10:09:00. Corrected from No [NA] on 07/19/21 10:56:25 EDT by Kai Butterfield. DARWIN Requested See Comment [facility] Comment: Refer to Rapid Drug Screen w/o Confirmation, Urine for results. Collection date/time has been modified to: 10:45:00. ??Previous collection date/time: 10:09:00. Corrected from See Comment [NA] on 07/19/21 10:56:25 EDT by Kai Butterfield. Urine 07/19/2021 10:4 5 AM EDT 07/19/2021 10:55 AM EDT Narrative Resulting Agency Comment Spec In Lab Patricia Briggs MD URINE ORDERABLES Performing Organization Address [facility] Co de Phone Number [facility] [place] [address] * POCT Glucose (07/19/2021 8:00 AM EDT) Glucose, POC 129 65 - 199 mg/dL [facility] Comment: Supplemental ranges: <140 mg/dL before meals <180 mg/dL all other times of the day Blood 07/19/2021 8:00 AM EDT 07/19/2021 8:00 AM EDT Patricia Briggs MD POINT OF CARE TEST O RDERABLES [facility] [place] [address] * Transcranial Duplex, complete (07/19/2021 6:05 AM EDT) VB Text Report Department: Vascular Surgery Lab Patient: [id number] (WERO SADLER) CPT: 77438 Referring Physician: SALOME RODRIGUEZ ?? Phone: Indications: [...] Rodriguez APRN VASCULAR ORDERABLES Performing Organization Address City/[facility]/ZIP Co de Phone Number [facility] * POCT Glucose (07/19/2021 4:02 AM EDT) Pathologist [facility] [place] Glucose, POC 169 65 - 199 mg/dL [facility] Comment: Supplemental ranges: <140 mg/dL before meals <180 mg/dL all other times of the day Blood 07/19/2021 4:02 AM EDT 07/19/2021 4:02 AM EDT Patricia Briggs MD POINT OF CARE TEST O RDERABLES Performing Organization Address [facility] Co de Phone Number [facility] [place] [address] * Differential, Automated (07/19/2021 1:15 AM EDT) Neutrophil % 66.5 % [facility] Neutrophil Absolute 4.33 1.70 - 6.10 x10(3)/[facility] Lymph % 19.7 % [facility] Lymphocytes Abs 1.3 0.9 - 3.2 x10(3)/[facility] Monocyte % 10.3 % [facility] Monocyte Abs 0.7 0.3 - 0.9 x10(3)/[facility] Eos % 2.8 % [facility] Eosinophils Abs 0.2 0.0 - 0.4 x10(3)/[facility] Basophil % 0.5 % [facility] Baso Absolute 0.0 0.0 - 0.1 x10(3)/[facility] Immature Gran % 0.20 % [facility] Comment: Immature granulocytes(IG's)percentage and absolute count will include metamyelocytes, myelocytes, and promyelocytes. Blood smears from CBCs yielding IG's will be scanned manually for concordance. If this scan disagrees with the automated IG or if promyelocytes are noted, a manual differential will be performed. Immature Gran Absolute 0.01 0.00 - 0.04 x10(3)/[facility] Blood 07/19/2021 1:15 AM EDT 07/19/2021 1:21 AM EDT Narrative Resulting Agency Comment Spec In Lab Abbi CORMIER HEMATOLOGY ORDERABL ES [facility] [place] [address] * (ABNORMAL) Hemogram (07/19/2021 1:15 AM EDT) White Blood Cell 6.5 4.0 - 9.5 x10(3)/mc L [facility] Red Blood Cell 3.50(L) 4.58 - 5.54 x10(6)/mc L [facility] Hemoglobin 10.9(L) 13.7 - 16.5 g/dL [facility] Hematocrit 32.4(L) 40.5 - 48.5 % [facility] Mean Cell Volume 92.6 82.9 - 93.1 fL [facility] Mean Cell Hemoglobin 31.1 27.5 - 32.1 pg [facility] Mean Cell Hemoglobin Concentration 33.6 32.0 - 35.7 g/dL [facility] Platelet 216 145 - 357 x10(3)/mc L [facility] RDW Standard Deviation 45.0 36.0 - 45.0 fL [facility] RDW coefficient of variation 13.2 11.4 - 13.8 % [facility] Mean Platelet Volume 10.2 7.6 - 12.9 fL [facility] NRBC% auto 0.0 % [facility] NRBC Absolute 0.000 0.000 - 0.000 x10(3)/mc L [facility] Blood 07/19/2021 1:15 AM EDT 07/19/2021 1:21 AM EDT Narrative Resulting Agency Comment Spec In Lab Abbi CORMIER HEMATOLOGY ORDERABL ES Performing Organization Address [facility]/ZIP Co de Phone Number [facility] [place] [address] * Phosphorus (07/19/2021 1:15 AM EDT) Phosphorus 3.2 2.5 - 4.5 mg/dL [facility] Blood 07/19/2021 1:15 AM EDT 07/19/2021 1:21 AM EDT Narrative Resulting Agency Comment Spec In Lab Patircia Briggs MD CHEMISTRY ORDERABLES Performing Organization Address [facility]/ZIP Co de Phone Number [facility] [place] [address] * Magnesium (07/19/2021 1:15 AM EDT) Magnesium 1.06 0.69 - 1.07 mmol/L [facility] Blood 07/19/2021 1:15 AM EDT 07/19/2021 1:21 AM EDT Narrative Resulting Agency Comment Spec In Lab Patricia Briggs MD CHEMISTRY ORDERABLES Performing Organization Address [facility]/ZIP Co de Phone Number [facility] [place] [address] * (ABNORMAL) Basic Metabolic Panel (non-fasting) (07/19/2021 1:15 AM EDT) Glucose 168 65 - 199 mg/dL [facility] Comment:Diabetes: >=200 mg/d L plus symptoms Blood Urea Nitrogen 9(L) 10 - 20 mg/dL [facility] Creatinine 0.56(L) 0.80 - 1.50 mg/dL [facility] Sodium 138 135 - 145 mmol/L [facility] Potassium 3.6 3.5 - 5.0 mmol/L [facility] Comment: Please note: ??Patients with WBC >100,000 may have falsely elevated Potassium levels. ??For accurate Potassium quantification in these patients send serum separator tube (gold top) for subsequent determinations. ??Contact the Clinical Chemistry Laboratory if there are any questions. Chloride 104 98 - 107 mmol/L [facility] Carbon Dioxide 21(L) 22 - 31 mmol/L [facility] Anion Gap 13 5 - 15 mmol/L [facility] Calcium 8.6 8.5 - 10.5 mg/dL [facility] Est Glomerular Filtration Rate 103 >=60 mL/min/1. 73 m?? [facility] Comment: This patient? s [...] In Lab Patricia Briggs MD CHEMISTRY ORDERABLES [facility] [place] [address] * COVID-19 PCR (07/19/2021 1:10 AM EDT) SARS-CoV-2 RNA (Rapid) Not Detected Not Detected [facility] Comment: This result should [...] using the Simplexa COVID-19 Direct Assay by [employer] as authorized by the FDA issued Emergency [...] Department of Pathology and Laboratory Medicine at [facility], certified under the Clinical Laboratory Improvement Amendments [...] fact sheets at the following FDA website: https://www.fda.gov/medical-devices/jmglehdnjpk-zdbjsem-6101-kikpy-38-iglwkivkq- use-a bggtqtolfifsu-wuampcv-ivgbhdn/zikvn-fdfsutdtjln-dzof SARS-CoV-2 Source RN CORRECTIONAL Swab MA [facility] Nasopharyngeal Swab 07/20/19 1:10 AM EDT 07/19/2021 1:47 AM EDT Comment:Symptoms->Surveillan ce Narrative Resulting Agency Comment Spec In Lab Patricia Briggs MD MICROBIOLOGY - GENER AL ORDERABLES Performing Organization Address [facility]/ZIP Co de Phone Number [facility] [place] [address] * POCT Glucose (07/18/2021 11:57 PM EDT) Glucose, POC 158 65 - 199 mg/dL [facility] Comment: Supplemental ranges: <140 mg/dL before meals <180 mg/dL all other times of the day Blood 07/18/2021 11:5 7 PM EDT 07/18/2021 11:57 PM EDT Patricia Briggs MD POINT OF CARE TEST O RDERABLES Performing Organization Address [facility]/ZIP Co de Phone Number [facility] [place] [place] [address] * (ABNORMAL) Urinalysis without microscopic (07/18/2021 10:10 PM EDT) Glucose, Urine Dipstick 100(A) Negative mg/dL [facility] Protein, Urine Dipstick Negative Negative mg/dL [facility] Bilirubin, Urine Dipstick Negative Negative mg/dL [facility] Comment: Clinical correlation required for positive Urine Bilirubin results as false positive may occur with some drugs and drug related products. If a false positive is suspected a serum total bilirubin should be considered if clinically indicated. Urobilinogen, Urine Dipstick Normal Normal mg/dL [facility] pH, Urn (dipstick) 6.0 5.0 - 8.0 [facility] Blood, Urine Dipstick Moderate(A) Negative mg/dL [facility] Ketone, Urine Dipstick Negative Negative mg/dL [facility] Nitrite, Urine Dipstick Negative Negative [facility] Leukocytes, Urine Dipstick Negative Negative mcL [facility] Appearance, Urine Dipstick Clear Clear [facility] Specific [place] Urine Automated 1.020 1.006 - 1.030 [facility] Color, Urine Dipstick Yellow [facility] Urine 07/18/2021 10:1 0 PM EDT 07/18/2021 10:28 PM EDT Narrative Resulting Agency Comment Spec In Lab Patricia Briggs MD URINE ORDERABLES [facility] [place] [address] * Request For 2nd Read CT Head [...] who have questions please contact the health adult care provider that requested your imaging first. ? Narrative 07/19/2021 8:15 AM EDT EXAMINATION: REQUEST FOR 2ND READ CT HEAD AND SPINE CLINICAL HISTORY: AMS and visual hallucinations. Recent R ICA TCAR 07/14, Please compare with earlier Head CT; Sending Institution [facility]; Date of exam [id number]; I believe a reinterpretation of this exam may alter care of Patient. Yes TECHNIQUE: CTA carotids and [place] of [place] performed following the intravenous administration of 100 mL Omnipaque 350. Study was performed at [facility] on 07/18/2021 COMPARISON: Angiogram [...] compare with earlier Head CT; Sending Institution [facility];Date of exam [id number]; I believe a reinterpretation of this exam may alter careof Patient. Yes TECHNIQUE: CTA carotids and [place] of [place] performed following theintravenous administration of [...] patients who have questions please contactthe health adult care provider that requested your imaging first. Electronically signed by: Andrew Canseco MD, [facility]([phone]), at 07/19/2021 8:15 AM Salome Rodriguez [address] MAN IMG OUTSIDE INTERPRE TATION ORDERABLES * XR [...] who have questions please contact the health adult care provider that requested your imaging first. ? Electronically signed by: Yessi Rivas MD, [facility] ([phone]), at 07/19/2021 8:38 AM Narrative 07/19/2021 8:38 [...] patients who have questions please contactthe health adult care provider that requested your imaging first. Electronically signed by: Yessi Rivas MD, [facility]([phone]), at 07/19/2021 8:38 AM Salome Dom Rodriguez APRN IMG DX ORDERABLES * POCT Glucose (07/18/2021 8:40 PM EDT) [facility] Signature Glucose, POC 146 65 - 199 mg/dL [facility] Comment: Supplemental ranges: <140 mg/dL before meals <180 mg/dL all other times of the day Blood 07/18/2021 8:40 PM EDT 07/18/2021 8:40 PM EDT Patricia Briggs MD POINT OF CARE TEST O RDERABLES Performing Organization Address [facility]/ZIP Co de Phone Number [facility] [place] [address] * T4 Total (07/18/2021 8:33 PM EDT) [facility] T4 Total 6.6 4.6 - 7.9 mcg/dL [facility] Comment: Reference Interval (mcg/dL): Females: ??First Trimester: 6.3-13.5 ??Second Trimester: 7.1-14.3 ??Third Trimester: 6.9-14.1 Blood Venous Draw / Unknown 07/18/2021 8:33 PM EDT 07/18/2021 9:03 PM EDT Narrative Resulting Agency Comment Spec In Lab Salome Rodriguez APRN CHEMISTRY ORDERABLES Performing Organization Address [facility] Co de Phone Number [facility] [place] [address] * Type and Screen Validity (07/18/2021 8:33 PM EDT) [facility] T&S only valid at [facility] Comment:This Type and Screen result is only valid at the [facility] Blood 07/18/2021 8:33 PM EDT 07/18/2021 8:45 PM EDT Narrative Resulting Agency Comment Spec In Lab Abbi CORMIER BLOOD BANK LAB SAUD CHENG Performing Organization Address [facility]/ZIP Co de Phone Number [facility] [place] [address] * ABORH Recheck Status (07/18/2021 8:33 PM EDT) [facility] ABORH Type Recheck Completed [facility] Blood 07/18/2021 8:33 PM EDT 07/18/2021 8:45 PM EDT Narrative Resulting Agency Comment Spec In Lab Abbi CORMIER BLOOD BANK LAB ORDE RABEZEKIEL [facility] [place] [address] * Differential, Automated (07/18/2021 8:33 PM EDT) Neutrophil % 64.1 % [facility] Neutrophil Absolute 4.57 1.70 - 6.10 x10(3)/[facility] Lymph % 21.2 % [facility] Lymphocytes Abs 1.5 0.9 - 3.2 x10(3)/[facility] Monocyte % 10.7 % [facility] Monocyte Abs 0.8 0.3 - 0.9 x10(3)/[facility] Eos % 3.4 % [facility] Eosinophils Abs 0.2 0.0 - 0.4 x10(3)/[facility] Basophil % 0.3 % [facility] Baso Absolute 0.0 0.0 - 0.1 x10(3)/[facility] Immature Gran % 0.30 % [facility] Comment: Immature granulocytes(IG's)percentage and absolute count will include metamyelocytes, myelocytes, and promyelocytes. Blood smears from CBCs yielding IG's will be scanned manually for concordance. If this scan disagrees with the automated IG or if promyelocytes are noted, a manual differential will be performed. Immature Gran Absolute 0.02 0.00 - 0.04 x10(3)/[facility] Blood 07/18/2021 8:33 PM EDT 07/18/2021 8:48 PM EDT Narrative Resulting Agency Comment Spec In Lab Abbi CORMIER HEMATOLOGY ORDERABL ES [facility] [place] [address] * (ABNORMAL) Hemogram (07/18/2021 8:33 PM EDT) [facility] White Blood Cell 7.1 4.0 - 9.5 x10(3)/[facility] Red Blood Cell 3.78(L) 4.58 - 5.54 x10(6)/[facility] Hemoglobin 11.8(L) 13.7 - 16.5 g/dL [facility] Hematocrit 35.1(L) 40.5 - 48.5 % [facility] Mean Cell Volume 92.9 82.9 - 93.1 fL [facility] Mean Cell Hemoglobin 31.2 27.5 - 32.1 pg [facility] Mean Cell Hemoglobin Concentration 33.6 32.0 - 35.7 g/dL [facility] Platelet 219 145 - 357 x10(3)/[facility] RDW Standard Deviation 45.4(H) 36.0 - 45.0 [facility] RDW coefficient of variation 13.4 11.4 - 13.8 % [facility] Mean Platelet Volume 9.9 7.6 - 12.9 [facility] NRBC% auto 0.0 % [facility] NRBC Absolute 0.000 0.000 - 0.000 x10(3)/[facility] Blood 07/18/2021 8:33 PM EDT 07/18/2021 8:48 PM EDT Narrative Resulting Agency Comment Spec In Lab Abbi CORMIER HEMATOLOGY ORDERABL ES [facility] [place] [address] * Antibody screen (07/18/2021 8:33 PM EDT) [facility] Ab Screen Interp Negative [facility] Expires at 2359 on: 07/21/2021 [facility] Blood 07/18/2021 8:33 PM EDT 07/18/2021 8:45 PM EDT Narrative Resulting Agency Comment Spec In Lab Abbi CORMIER BLOOD BANK LAB ORDShante CHENG [facility] [place] [address] * ABO/Rh Typing (07/18/2021 8:33 PM EDT) ABORH Type O Pos [facility] Blood 07/18/2021 8:33 PM EDT 07/18/2021 8:45 PM EDT Narrative Resulting Agency Comment Spec In Lab Abbi CORMIER BLOOD B[facility] LAB ORDShante CHENG Performing Organization Address City/[facility]/ZIP Co de Phone Number [facility] [place] [address] * (ABNORMAL) Ammonia (07/18/2021 8:33 PM EDT) Pathologist [facility] [place] Ammonia 12(L) 16 - 60 mcmol/L [facility] Blood 07/18/2021 8:33 PM EDT 07/18/2021 8:48 PM EDT Narrative Resulting Agency Comment Spec In Lab Salome Rodriguez [address] MAN CHEMISTRY ORDERABLES [facility] [place] [address] * (ABNORMAL) Hepatic Function Panel (07/18/2021 8:33 PM EDT) Protein, Total 6.7 6.1 - 8.0 g/dL [facility] Albumin 4.1 3.2 - 5.2 g/dL [facility] Aspartate Aminotransferase 22 0 - 39 unit/L [facility] Alanine Aminotransferase 16 0 - 55 unit/L [facility] Alkaline Phosphatase 96 40 - 130 unit/L [facility] Bilirubin, Total 1.4(H) 0.2 - 1.3 mg/dL [facility] Bilirubin, Direct 0.3 0.0 - 0.3 mg/dL [facility] Blood 07/18/2021 8:33 PM EDT 07/18/2021 8:48 PM EDT Narrative Resulting Agency Comment Spec In Lab Salome Rodriguez APRN CHEMISTRY ORDERABLES Performing Organization Address [facility] Co de Phone Number [facility] [place] [address] * APTT (07/18/2021 8:33 PM EDT) Partial Thromboplastin Time 30 25 - 37 sec [facility] Comment: The PTT is NOT appropriate for heparin monitoring. Use the Anti-Xa level for heparin monitoring (HEP UFH) or LMWH monitoring (HEP LMW). A PTT less than 37 seconds generally indicates adequate hemostasis. Blood 07/18/2021 8:33 PM EDT 07/18/2021 8:48 PM EDT Narrative Resulting Agency Comment Spec In Lab Salome Rodriguez [address] MAN HEMATOLOGY ORDERABLE S Performing Organization Address [facility] Co de Phone Number [facility] [place] [address] * Prothrombin Time (07/18/2021 8:33 PM EDT) Prothrombin Time 12.3 9.4 - 12.5 sec [facility] International Normalization Ratio 1.1 [facility] Comment: An INR <2.0 [...] Lab Salome Rodriguez ARNOLD HEMATOLOGY ORDERABLE S [facility] [place] [address] * (ABNORMAL) Hemoglobin A1c (07/18/2021 8:33 PM EDT) Hemoglobin A1c 7.8(H) 4.3 - 5.6 % [facility] Comment: Reference Range: 4.3 [...] [id number] Estimated Average Glucose See note mg/dL [facility] Comment: Estimated Average Glucose [...] into estimated average glucose values. ??Diabetes Care 2008:31(8):3055-7862. Blood 07/18/2021 8:33 PM EDT 07/18/2021 8:48 PM EDT Narrative Resulting Agency Comment Spec In Lab Salome Colemano [address] MAN CHEMISTRY ORDERABLES Performing Organization Address [facility] Co de Phone Number [facility] [place] [address] * (ABNORMAL) TSH (07/18/2021 8:33 PM EDT) Thyroid Stimulating Hormone 4.86(H) 0.27 - 4.20 mcIU/mL [facility] Comment: Reference Interval (mcIU/mL): Females: ??First Trimester: 0.23-3.88 ??Second Trimester: 0.22-3.90 ??Third Trimester: 0.44-4.66 Blood 07/18/2021 8:33 PM EDT 07/18/2021 8:48 PM EDT Narrative Resulting Agency Comment Spec In Lab Salome Colemano [address] MAN CHEMISTRY ORDERABLES Performing Organization Address [facility] Co de Phone Number [facility] [place] [address] * Lipid Panel (Reflex Direct LDL) (07/18/2021 8:33 PM EDT) Cholesterol, Total 151 mg/dL [facility] Comment: Lower Risk: <200 mg/dL Average Risk: 200-239 mg/dL Higher Risk: >zp=995 mg/dL Triglyceride 162 mg/dL [facility] Comment: Average Risk/Lower Risk: <150 mg/dL Borderline High Risk: 150-199 mg/dL High Risk: 200-499 mg/dL Very High Risk: >ii=388 mg/dL HDL Cholesterol 38 mg/dL [facility] Comment: Males: ?? Higher Risk: <40 mg/dL Females: ?? Higher Risk: <50 mg/dL LDL Cholesterol 81 mg/dL [facility] Comment: Lowest Risk: <100 mg/dL Lower Risk: 100-129 mg/dL Borderline High Risk: 130-159 mg/dL High Risk: 160-189 mg/dL Very High Risk: >uf=270 mg/dL Cholesterol/HDL Ratio 4.0 ratio [facility] Lipid Interpretation See Note [facility] Comment: Lipid management should be guided by a patient? s ASCVD risk, goals and preferences. ACC/AHA Guidelines recommend high intensity statin if clinical ASCVD or LDL greater than or equal to 190 mg/dL. http://[employer]/QMB-OHM-Kukvstfov Adults aged 40-75 with LDL 70-189 mg/dL should have their 10 year ASCVD risk estimated with the ACC/AHA ASCVD risk internal affairs commander http://tools.acc.org/RUAZT-Sukw-Lobdiormk/ Statin should be discussed if risk greater [...] In Lab Salome Rodriguez APRN CHEMISTRY ORDERABLES [facility] [place] [address] * Phosphorus (07/18/2021 8:33 PM EDT) Phosphorus 2.7 2.5 - 4.5 mg/dL [facility] Blood 07/18/2021 8:33 PM EDT 07/18/2021 8:48 PM EDT Narrative Resulting Agency Comment Spec In Lab Patricia Briggs MD CHEMISTRY ORDERABLES [facility] [place] [address] * Magnesium (07/18/2021 8:33 PM EDT) Magnesium 0.84 0.69 - 1.07 mmol/L [facility] Blood 07/18/2021 8:33 PM EDT 07/18/2021 8:48 PM EDT Narrative Resulting Agency Comment Spec In Lab Patricia Briggs MD CHEMISTRY ORDERABLES Performing Organization Address City/[facility]/ZIP Co de Phone Number [facility] [place] [address] * (ABNORMAL) Basic Metabolic Panel (non-fasting) (07/18/2021 8:33 PM EDT) Glucose 160 65 - 199 mg/dL [facility] Comment:Diabetes: >=200 mg/d L plus symptoms Blood Urea Nitrogen 9(L) 10 - 20 mg/dL [facility] Creatinine 0.62(L) 0.80 - 1.50 mg/dL [facility] Sodium 138 135 - 145 mmol/L [facility] Potassium 3.7 3.5 - 5.0 mmol/L [facility] Comment: Please note: ??Patients with WBC >100,000 may have falsely elevated Potassium levels. ??For accurate Potassium quantification in these patients send serum separator tube (gold top) for subsequent determinations. ??Contact the Clinical Chemistry Laboratory if there are any questions. Chloride 102 98 - 107 mmol/L [facility] Carbon Dioxide 22 22 - 31 mmol/L [facility] Anion Gap 14 5 - 15 mmol/L [facility] Calcium 9.0 8.5 - 10.5 mg/dL [facility] Est Glomerular Filtration Rate 98 >=60 mL/min/1. 73 m?? [facility] Comment: This patient? s [...] Briggs MD CHEMISTRY ORDERABLES Performing Organization Address City/[facility]/ZIP Co de Phone Number [facility] [place] [address] * Lactate, whole blood, send to lab ([facility]) (07/18/2021 8:33 PM EDT) [facility] Lactate WB 1.2 0.5 - 2.2 mmol/L [facility] Blood 07/18/2021 8:33 PM EDT 07/18/2021 8:48 PM EDT Narrative Resulting Agency Comment Spec In Lab Patricia Briggs MD CHEMISTRY ORDERABLES [facility] [place] [address] * EKG 12 Lead (07/18/2021 8:14 PM EDT) Ventricular rate 76 BPM MUSE SYSTEM Atrial Rate 76 BPM MUSE SYSTEM P-R Interval 168 ms MUSE SYSTEM QRS Duration 98 ms MUSE SYSTEM Q-T Interval 402 ms MUSE SYSTEM QTC Calculated (Bezet) 452 ms MUSE SYSTEM Calculated P [place] 45 degrees MUSE SYSTEM Calculated R [place] 2 degrees MUSE SYSTEM Calculated T [place] 24 degrees MUSE SYSTEM INTERPRETATION Normal sinus rhythm Normal ECG When compared with ECG of 06-OCT-2020 14:46, No significant change was found Confirmed by MD Jay Danette ([id number]) on 07/19/2021 3:51:56 PM MUSE SYSTEM 07/18/2021 [...] dose, On Ammy 07/20/21 at 1030, Routine Given 07/20/2021 11:22 [...] ONCE, 1 dose, On Sat07/19/21 at 0245 [facility] 07/19/2021 2:10 AM EDT sodium chloride 0.9% infusion 75 mL/hr, Intravenous, CONTINUOUS, Starting on Sat07/19/21 at 0245, Until Sat07/19/21 at 0946 [facility] 07/19/2021 2:10 AM EDT 75 [...] Chloride and infused over 30 minutes. New 07/21/2021 8:23 AM EDT 500 mg 110 [...] 0823 (Given - Provider: Lashonda Chin, RN) amLODIPine (Norvasc) tablet 10 mg 10 mg, Oral, DAILY, First dose (after last modification) on Sat07/20/21 at 0900, Until Discontinued, Routine 0829 (Given - Provider: Tonja Coe, AYE) 0820 (Given - Provider: Marixa Garcia V, RN) aspirin chewable tablet 81 mg (CANCELED) 81 mg, Per NG tube, DAILY, First dose on Sat07/19/21 at 0900, Until Discontinued, Routine 0823 (Given - Provider: Lashonda Chin, RN) aspirin chewable tablet 81 mg 81 mg, Oral, DAILY, First dose (after last modification) on Sat07/20/21 at 0900, Until Discontinued, Routine 0829 (Given - Provider: Tonja Coe, AYE) 0820 (Given - Provider: Marixa Garcia V, RN) atorvastatin (Lipitor) tablet 80 mg 80 mg, Oral, EVERY EVENING, First dose (after last modification) on Sat07/19/21 at 1700, Until Discontinued, Routine 1641 (Given - Provider: Jackie Nye RN) 1632 (Given - Provider: Tonja Coe, AYE) carvediloL (Coreg) tablet 25 mg (CANCELED) 25 [...] Tonja Coe RN)1632 (Given - Provider: Tonja Coe, AYE) 0727 (Given - Provider: Marixa Garcia V RN) clopidogreL (Plavix) tablet 75 mg (CANCELED) 75 mg, Per NG tube, DAILY, First dose (after last modification) on Sat07/19/21 at 0900, Until Discontinued, Routine 08 (Given - Provider: Lashonda Chin RN) clopidogreL (Plavix) tablet 75 mg 75 mg, Oral, DAILY, First dose (after last modification) on Sat07/20/21 at 0900, Until Discontinued, Routine 0829 (Given - Provider: Tonja Coe RN) 0820 (Given - Provider: Marixa Garcia V, RN) folic acid (Folvite) tablet 1,000 mcg (CANCELED) 1,000 mcg, Per NG tube, DAILY, First dose (after last modification) on Sat07/19/21 at 0900, Until Discontinued, Routine 08 (Given - Provider: Lashonda Chin RN) folic acid (Folvite) tablet 1,000 mcg 1,000 mcg, Oral, DAILY, First dose (after last modification) on Sat07/20/21 at 0900, Until Discontinued, Routine 0829 (Given - Provider: Tonja Coe RN) 0820 (Given - Provider: Marixa Garcia V RN) heparin (porcine) (5,000 units/1 mL) subcutaneous injection 5,000 Units 5,000 Units, Subcutaneous, EVERY 8 HOURS SCHEDULED, First dose on Sat07/18/21 at 2200, Until Discontinued, Routine 0559 (Given - Provider: Gypsy Peters)1515 (Given - Provider: Lashonda Chin RN)2157 (Given - Provider: Trinh Jacobson, AYE) 0533 (Given - Provider: Trinh Jacobson, AYE)1403 (Given - Provider: Tonja Coe, AYE)2110 (Given - Provider: Abbi Kemp, RN) 0606 (Given - Provider: Abbi Kemp, RN)1400 (Due) insulin lispro (HumaLOG;Admelog) (100 unit/mL) subcutaneous [...] Lashonda Chin RN)1604 (Given - Provider: Lashonda Chin RN)1947 (Given - Provider: Trinh Jacobson, AYE) 0021 (Given - Provider: Trinh Jacobson, AYE)0300 (Given - Provider: Trinh Jacobson, AYE)0829 (Given - Provider: Tonja Coe, AYE)1217 (Given - Provider: Tonja Coe, AYE)1700 (Given - Provider: Tonja Coe, RN)1953 (Given - Provider: Abbi Kemp RN) 0015 (Given - Provider: Abbi Kemp RN)0406 (Given - Provider: Abbi Kemp RN)0817 (Given - Provider: Marixa Garcia V RN)1158 (Given - Provider: Marixa Garcia V, RN) [...] on Sat07/21/21 at 0900, Until Discontinued, Routine 0820 (Given - Provider: Marixa Richey RN) lisinopriL (Zestril) tablet 20 mg [...] Coe, AYE) 0820 (Given - Provider: Marixa Garcia V, AYE) senna (Senokot) tablet 25.8 mg (COMPLETED) 25.8 mg, Oral, ONCE, 1 dose, On Sat07/20/21 at 1030, Routine 1122 (Given - Provider: Tonja Coe, AYE) senna-docusate (Pericolace) 8.6-50 mg per tablet 2 tablet (CANCELED) 2 tablet, Per NG tube, 2 TIMES DAILY, First dose (after last modification) on Sat07/19/21 at 0900, Until Discontinued, Routine 0823 (Given - Provider: Lashonda Chin, AYE) senna-docusate (Pericolace) 8.6-50 mg per tablet 2 tablet 2 tablet, Oral, 2 TIMES DAILY, First dose (after last modification) on Sat07/19/21 at 2100, Until Discontinued, Routine 215 (Given - Provider: Trinh Jacobson, AYE) 0828 (Given - Provider: Tonja Coe, AYE)2114 (Given - Provider: Abbi Kemp RN) 0900 [...] Chin RN)2157 (New Bag - Provider: Trinh Jacobson, AYE)2227 (Stopped - Provider: Trinh Jacobson, AYE) 0830 (New Bag - Provider: Tonja Coe RN)0900 (Stopped - Provider: Tonja M Chidester, RN)1404 (New Bag - Provider: Tonja Coe, RN)1434 (Stopped - Provider: Tonja Coe, RN)2112 (New Bag - Provider: Abbi Kemp, RN)2142 (Stopped - Provider: Abbi Kemp, RN) 0823 (New Bag - Provider: Marixa [...] Chin RN)1015 (Rate/Dose Change - Provider: Lashonda Chin, RN)1044 (New Bag - Provider: Lashonda Chin, RN)1315 (Stopped - Provider: Lamont Haley RN) sodium chloride 0.9% infusion (CANCELED) 75 mL/hr, Intravenous, CONTINUOUS, Starting on Sat07/19/21 at 0245, Until Sat07/19/21 at 0946 0210 (New Bag - Provider: Gypsy Peters)0946 (Stopped - Provider: Lashonda Chin, AYE) PRN Medication Order 07/19/2021 07/20/2021 07/21/2021 acetaminophen [...] other ordered pain medications are indicated., Routine 2155 (Given - Provider: Trinh Jacobson, RN) bisacodyL [...] Routine 1249 (Given - Provider: Tonja Coe, RN) dextrose 10% infusion(Linked Group 2) 250 mL, [...] > 140 1712 (Given - Provider: Lashonda Chin, RN) 1007 (Given - Provider: Tonja Coe, AYE)1209 (Given - Provider: Tonja Coe, AYE)1507 (Given - Provider: Tonja Coe RN)1947 (Given - Provider: Abbi Kemp, RN) 0817 (Given - Provider: Marixa Garcia V, RN) Linked Groups Order Group 1: POCT [...] Routine documented in this encounter Care Teams Sound Assistant Relationship Specialty Start Date End Date Alo Carey DO [address] [place] [address] [place] [phone] PCP - General Internal Medicine 08/31/20 07/03/23 documented as of this encounter
--- OUTSIDE RECORDS SUMMARY | 2024-03-12 10:57 | XMS_ITS | Encounter Summary ---
[place] [address] Care Team Providers Care Wheel Buffer Name Role Phone Alo Carey Primary Care Provider [phone] Encounter Details Date Type Department Care Team (Late st Contact Info) Description 09/01/2021 Telephone [place] [phone] Erika Carranza RN Social History Tobacco Use [...] TH Visit (TeleHealth) Radiation Oncology at [address] [phone] Ping Moore PA [facility] [place] [address] 03/26/2024 9:30 AM EST Office Visit Hematology/Oncology at [address] [phone] HEMATOLOGY AND ONCOLOGY [place], [place] [phone] 03/26/2024 9:30 AM EST Infusion Hematology Oncology at [address] [phone] 04/09/2024 9:30 AM EST Office Visit Hematology/Oncology at [address] [phone] Cl Hess MD [facility] [place] [address] HEMATOLOGY AND ONCOLOGY [place], [place] [phone] 04/09/2024 10:00 AM EST Infusion Hematology Oncology at [address] [phone] 04/23/2024 9:30 AM EST Office Visit Hematology/Oncology at [address] [phone] Cl Hess MD [facility] [place] [address] Yessi Renee APRN [address] [place] [address] DR HEMATOLOGY [place] [address] 04/23/2024 10:00 AM EST Infusion Hematology Oncology at [address] [phone] 05/18/2024 4:30 PM EDT TH Visit (TeleHealth) [place] [address] Malachi Rothman MD [facility] [place] [address] documented as of this encounter Visit Diagnoses Not on filedocumented in this encounter Care Teams Wheel Buffer Relationship Specialty Start Date End Date Alo Carey DO [address] [place] [address] [place] [phone] PCP - General Internal Medicine 08/31/20 07/03/23 documented as of this encounter
--- OUTSIDE RECORDS SUMMARY | 2024-03-12 10:57 | XMS_ITS | Encounter Summary ---
Author Organization [facility] [place] [address] Care Team Providers Care Advertising Statistical Clerk Name Role Phone YungAlo santiago Primary Care Provider [phone] Reason for Visit * Reason Onset Date Comments Other 08/17/2021 Pre Procedure Call 08/17/2021 Encounter Details Date Type Department Care Team (Late st Contact Info) Description 08/17/2021 Telephone [place] [phone] Ismael Wu MD [facility] [place] [address] Other; Pre Procedure Call Social History Tobacco [...] left a message for patient to call [phone] directly and schedule surgery with Dr. Wu. * Telephone Encounter - Radha Rivas - 08/17/2021 4:25 PM EDT Name of person calling: Wero What is the question: Patient wanting to know next steps as he has been cleared by his vascular provider to proceed with surgery. Best number to reach the caller: [phone] documented in this encounter Plan of Treatment Upcoming Encounters Date Type Department Care Team (Late st Contact Info) Description 03/24/2024 9:00 AM EST TH Visit (TeleHealth) Radiation Oncology at [address] [phone] Ping Moore PA [facility] DR HEMATOLOGY [place] [address] 03/26/2024 9:30 AM EST Office Visit Hematology/Oncology at [address] [phone] Yessi Renee, EXTRACTION MACHINE OPERATOR [address] [place] [address] DR HEMATOLOGY AND ONCOLOGY [place], [place] [phone] 03/26/2024 9:30 AM EST Infusion Hematology Oncology at [address] [phone] 04/09/2024 9:30 AM EST Office Visit Hematology/Oncology at [address] [phone] Cl Hess MD [facility] [place] [address] Yessi Renee, [address] HEMATOLOGY AND ONCOLOGY [place], [place] [address] 04/09/2024 10:00 AM EST Infusion Hematology Oncology at [address] [phone] 04/23/2024 9:30 AM EST Office Visit Hematology/Oncology at [address] [phone] Cl Hess MD [facility] [place] [address] Yessi Renee, [address] HEMATOLOGY [place] [address] 04/23/2024 10:00 AM EST Infusion Hematology Oncology at [address] [phone] 05/18/2024 4:30 PM EDT TH Visit (TeleHealth) [place] [address] Malachi Rothman MD [facility] [place] [address] documented as of this encounter Visit Diagnoses Not on filedocumented in this encounter Care Teams Advertising Statistical Clerk Relationship Specialty Start Date End Date Alo Carey DO [address] [place] [address] [place] [phone] PCP - General Internal Medicine 08/31/20 07/03/23 documented as of this encounter
--- OUTSIDE RECORDS SUMMARY | 2024-03-12 10:57 | XMS_ITS | Encounter Summary ---
[place] [address] Care Team Providers Care Bowling Ball Weigher And Packer Name Role Phone YungAlo santiago Primary Care Provider [phone] Encounter Details Date Type Department Care Team (Late st Contact Info) Description 08/02/2021 Telephone [place]ascular [place] [phone] Kaelyn Capps Social History Tobacco Use Types [...] TH Visit (TeleHealth) Radiation Oncology at [address] [phone] Ping Moore PA [facility] DR [place] [address] 03/26/2024 9:30 AM EST Office Visit Hematology/Oncology at [address] [phone] HEMATOLOGY AND ONCOLOGY [place], [place] [phone] 03/26/2024 9:30 AM EST Infusion Hematology Oncology at [address] [phone] 04/09/2024 9:30 AM EST Office Visit Hematology/Oncology at [address] [phone] Cl Hess MD [facility] [place] [address] [address] HEMATOLOGY AND ONCOLOGY [place], [place] [address] 04/09/2024 10:00 AM EST Infusion Hematology Oncology at [address] [phone] 04/23/2024 9:30 AM EST Office Visit Hematology/Oncology at [address] [phone] Cl Hess MD [facility] [place] [address] Yessi Renee APRN [address] [place] [address] DR HEMATOLOGY AND ONCOLOGY [place], [place] [address] 04/23/2024 10:00 AM EST Infusion Hematology Oncology at [address] [phone] 05/18/2024 4:30 PM EDT TH Visit (TeleHealth) [place]iation [place] [address] Malachi Rothman MD [facility] [place] [address] documented as of this encounter Visit Diagnoses Not on filedocumented in this encounter Care Teams Bowling Ball Weigher And Packer Relationship Specialty Start Date End Date Alo Carey DO [address] [place] [address] [place] [address] PCP - General Internal Medicine 08/31/20 07/03/23 documented as of this encounter
--- OUTSIDE RECORDS SUMMARY | 2024-03-12 10:57 | XMS_ITS | Encounter Summary ---
[place] [address] Care Team Providers Care Seafood Harvester Name Role Phone Alo Carey DO Primary Care Provider [phone] Reason for Visit * Reason Onset Date Comments Medication Problem 07/24/2021 Encounter Details Date Type Department Care Team (Late st Contact Info) Description 07/24/2021 Telephone [place] [phone] Sandra Murphy MD Medication Problem Social History Tobacco Use Types [...] EDT This provider is not associated with DH. The patient or the pharmacy will need to reach out to PCP * Telephone Encounter - Inga Harrison - 07/24/2021 4:10 PM EDT Pharmacy or caller: Yessi ty [facility] Medication: Thera M Message: Pharmacy stated [...] TH Visit (TeleHealth) Radiation Oncology at [address] [phone] Ping Moore PA [facility] DR [place] [address] 03/26/2024 9:30 AM EST Office Visit Hematology/Oncology at [address] [phone] Yessi Renee [address] HEMATOLOGY AND ONCOLOGY [place], [place] [phone] 03/26/2024 9:30 AM EST Infusion Hematology Oncology at [address] [phone] 04/09/2024 9:30 AM EST Office Visit Hematology/Oncology at [address] [phone] Cl Hess MD [facility] [place] [address] Yess[address]e [address] HEMATOLOGY [place] [address] 04/09/2024 10:00 AM EST Infusion Hematology Oncology at [address] [phone] 04/23/2024 9:30 AM EST Office Visit Hematology/Oncology at [address] [phone] Cl Hess MD [facility] [place] [address] [address] HEMATOLOGY [place] [address] 04/23/2024 10:00 AM EST Infusion Hematology Oncology at [address] [phone] 05/18/2024 4:30 PM EDT TH Visit (TeleHealth) [place] [address] Malachi Rothman MD [facility] [place] [address] documented as of this encounter Visit Diagnoses Not on filedocumented in this encounter Care Teams Seafood Harvester Relationship Specialty Start Date End Date Alo Carey DO [address] [place] [address] [place] [address] PCP - General Internal Medicine 08/31/20 07/03/23 documented as of this encounter
--- OUTSIDE RECORDS SUMMARY | 2024-03-12 10:57 | XMS_ITS | Encounter Summary ---
[place] [address] Care Team Providers Care Counselor/Art Therapist Name Role Phone Alo Carey Primary Care Provider [phone] Encounter Details Date Type Department Care Team (Late st Contact Info) Description 08/31/2021 1:00 PM EDT Office Visit Radiation Oncology at [address] [phone] Bigg Peters MD [address] [place] [address] [place] [address] Malignant neoplasm of prostate Social [...] placed in this encounter. ??? National Cancer [place] (NCI) Comprehensive Cancer Center ??? [employer] Commission on Cancer (ACS Joanna) Accredited Cancer Program ??? [employer] (ACR) Accredited Radiation Oncology Program documented in this encounter Plan of Treatment Upcoming Encounters Date Type Department Care Team (Late st Contact Info) Description 03/24/2024 9:00 AM EST TH Visit (TeleHealth) Radiation Oncology at [address] [phone] Ping Moore PA [facility] DR [place] [address] 03/26/2024 9:30 AM EST Office Visit Hematology/Oncology at [address] [phone] Yessi Renee APRN [address] [place] [address] DR HEMATOLOGY AND ONCOLOGY [place], [place] [phone] 03/26/2024 9:30 AM EST Infusion Hematology Oncology at [address] [phone] 04/09/2024 9:30 AM EST Office Visit Hematology/Oncology at [address] [phone] Cl Hess MD [facility] [place] [address] Yessi Renee, [address] HEMATOLOGY AND ONCOLOGY [place], [place] [address] 04/09/2024 10:00 AM EST Infusion Hematology Oncology at [address] [phone] 04/23/2024 9:30 AM EST Office Visit Hematology/Oncology at [address] [phone] Cl Hess MD [facility] [place] [address] [address] HEMATOLOGY [place] [address] 04/23/2024 10:00 AM EST Infusion Hematology Oncology at [address] [phone] 05/18/2024 4:30 PM EDT TH Visit (TeleHealth) [place] [address] Malachi Rothman MD [facility] [place] [address] documented as of this encounter Visit Diagnoses Diagnosis Malignant neoplasm of prostate documented in this encounter Care Teams Counselor/Art Therapist Relationship Specialty Start Date End Date Alo Carey DO [address] [place] [address] [place] [address] PCP - General Internal Medicine 08/31/20 07/03/23 documented as of this encounter
--- OUTSIDE RECORDS SUMMARY | 2024-03-12 10:57 | XMS_ITS | Encounter Summary ---
[place] [address] Care Team Providers Care Barrel Lathe Operator Outside Name Role Phone Alo Carey Primary Care Provider [phone] Encounter Details Date Type Department Care Team (Late st Contact Info) Description 08/17/2021 1:00 PM EDT Office Visit Radiation Oncology at [address] [phone] Bigg Peters MD [address] [place] [address] [place] [address] Malignant neoplasm of prostate Social [...] from the original note were not included. [facility] Medicine Radiation Oncology Radiation Oncology On-treatment Visit [...] placed in this encounter. ??? National Cancer [place] (NCI) Comprehensive Cancer Center ??? [employer] Commission on Cancer (ACS Joanna) Accredited Cancer Program ??? [employer] (ACR) Accredited Radiation Oncology Program documented in this encounter Plan of Treatment Upcoming Encounters Date Type Department Care Team (Late st Contact Info) Description 03/24/2024 9:00 AM EST TH Visit (TeleHealth) Radiation Oncology at [address] [phone] Ping Moore PA [facility] DR [place] [address] 03/26/2024 9:30 AM EST Office Visit Hematology/Oncology at [address] [phone] Yessi Renee APRN [address] [place] [address] DR HEMATOLOGY AND ONCOLOGY [place], [place] [phone] 03/26/2024 9:30 AM EST Infusion Hematology Oncology at [address] [phone] 04/09/2024 9:30 AM EST Office Visit Hematology/Oncology at [address] [phone] Cl Hess MD [facility] [place] [address] [address] [place]EMATOLOGY [place] [address] 04/09/2024 10:00 AM EST Infusion Hematology Oncology at [address] [phone] 04/23/2024 9:30 AM EST Office Visit Hematology/Oncology at [address] [phone] Cl Hess MD [facility] [place] [address] [address] [place]EMATOLOGY [place] [address] 04/23/2024 10:00 AM EST Infusion Hematology Oncology at [address] [phone] 05/18/2024 4:30 PM EDT TH Visit (TeleHealth) [place] [address] Malachi Rothman MD [facility] [place] [address] documented as of this encounter Visit Diagnoses Diagnosis Malignant neoplasm of prostate documented in this encounter Care Teams Barrel Lathe Operator Outside Relationship Specialty Start Date End Date Alo Carey DO [address] [place] [address] [place] [address] PCP - General Internal Medicine 08/31/20 07/03/23 documented as of this encounter
--- OUTSIDE RECORDS SUMMARY | 2024-03-12 10:57 | XMS_ITS | Encounter Summary ---
[place] [address] Care Team Providers Care Agricultural Chemicals Inspector Name Role Phone Alo Carey Primary Care Provider [phone] Encounter Details Date Type Department Care Team (Late st Contact Info) Description 07/27/2021 3:15 PM EDT Office Visit Radiation Oncology at [address] [phone] Bigg Peters MD [address] [place] [address] [place] [address] Malignant neoplasm of prostate Social [...] from the original note were not included. [facility] Medicine Radiation Oncology Radiation Oncology [...] bite. Looking forward to dancing and singing [employer] celebration this weekend. GI Diarrhea - attributes [...] confined to bed or chair Medications Medications 07/18/211843 Medication Sig Taking? folic acid (Folvite) 1 [...] imaging has been checked and approved. See Jitendraa for details. 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 Continue as planned. Next Lupron due September 21 Followup: Return to clinic next week for on treatment check. No orders of the defined types were placed in this encounter. ??? National Cancer [place] (NCI) Comprehensive Cancer Center ??? [employer] Commission on Cancer (ACS Joanna) Accredited Cancer Program ??? [employer] (ACR) Accredited Radiation Oncology Program documented in this encounter Plan of Treatment Upcoming Encounters Date Type Department Care Team (Late st Contact Info) Description 03/24/2024 9:00 AM EST TH Visit (TeleHealth) Radiation Oncology at [address] [phone] Ping Moore PA [facility] DR [place] [address] 03/26/2024 9:30 AM EST Office Visit Hematology/Oncology at [address] [phone] [address] HEMATOLOGY AND ONCOLOGY [place] [phone] 03/26/2024 9:30 AM EST Infusion Hematology Oncology at [address] [phone] 04/09/2024 9:30 AM EST Office Visit Hematology/Oncology at [address] [phone] Cl Hess MD [facility] [place] [address] Yess[address]enee [address] HEMATOLOGY AND ONCOLOGY [place], [place] [phone] 04/09/2024 10:00 AM EST Infusion Hematology Oncology at [address] [phone] 04/23/2024 9:30 AM EST Office Visit Hematology/Oncology at [address] [phone] Cl Hess MD [facility] [place] [address] Yessi Renee APRN [address] [place] [address] DR HEMATOLOGY [place] [address] 04/23/2024 10:00 AM EST Infusion Hematology Oncology at [address] [phone] 05/18/2024 4:30 PM EDT TH Visit (TeleHealth) [place] [address] Malachi Rothman MD [facility] [place] [address] documented as of this encounter Visit Diagnoses Diagnosis Malignant neoplasm of prostate documented in this encounter Care Teams Agricultural Chemicals Inspector Relationship Specialty Start Date End Date Alo Carey DO [address] [place] [address] [place] [address] PCP - General Internal Medicine 08/31/20 07/03/23 documented as of this encounter
--- OUTSIDE RECORDS SUMMARY | 2024-03-12 10:57 | XMS_ITS | Encounter Summary ---
[place] [address] Care Team Providers Care Jump Roll Operator Name Role Phone Alo Carey DO Primary Care Provider [phone] Encounter Details Date Type Department Care Team (Late st Contact Info) Description 09/06/2021 12:45 PM EDT Notes Only Radiation Oncology at [address] [phone] Alonso Peters MD [address] [place] [address] [place] [address] Social History Tobacco Use Types [...] as of this encounter Progress Notes * Alonso Peters MD - 09/06/2021 12:45 PM EDT Images from the original note were not included. [facility] Medicine Radiation Oncology Radiation Therapy Completion Note [...] plan: Follow-up visit with Radiation Oncology in [facility] is scheduled for 09/21/21 for routine post-procedural symptom check; he has received instructions to call this office or seek the help of the local emergency room if any further problems should arise prior to followup. ALONSO PETERS MD 09/07/2021 ??? National Cancer [place] (NCI) Comprehensive Cancer Center ??? [employer] Commission on Cancer (ACS Joanna) Accredited Cancer Program ??? [employer] (ACR) Accredited Radiation Oncology Program documented in this encounter Plan of Treatment Upcoming Encounters Date Type Department Care Team (Late [facility] Info) Description 03/24/2024 9:00 AM EST TH Visit (TeleHealth) Radiation Oncology at [address] [phone] Ping Moore PA [facility] DR HEMATOLOGY [place] [address] 03/26/2024 9:30 AM EST Office Visit Hematology/Oncology at [address] [phone] HEMATOLOGY AND ONCOLOGY [place], [place] [address] 03/26/2024 9:30 AM EST Infusion Hematology Oncology at [address] [phone] 04/09/2024 9:30 AM EST Office Visit Hematology/Oncology at [address] [phone] Cl Hess MD [facility] [place] [address] [address] HEMATOLOGY AND ONCOLOGY [place], [place] [phone] 04/09/2024 10:00 AM EST Infusion Hematology Oncology at [address] [phone] 04/23/2024 9:30 AM EST Office Visit Hematology/Oncology at [address] [phone] Cl Hess MD [facility] [place] [address] [address] HEMATOLOGY AND ONCOLOGY [place], [place] [address] 04/23/2024 10:00 AM EST Infusion Hematology Oncology at [address] [phone] 05/18/2024 4:30 PM EDT TH Visit (TeleHealth) [place] [address] Malachi Rothman MD [facility] RADI[place] [address] documented as of this encounter Visit Diagnoses Not on filedocumented in this encounter Care Teams Jump Roll Operator Relationship Specialty Start Date End Date Alo Carey DO [address] [place] [address] [place] [address] PCP - General Internal Medicine 08/31/20 07/03/23 documented as of this encounter
--- OUTSIDE RECORDS SUMMARY | 2024-03-12 10:57 | XMS_ITS | Encounter Summary ---
Author Organization [facility] [place] [address] Care Team Providers Care Rn Float Name Role Phone Alo Carey DO Primary Care Provider [phone] Reason for Referral * Diagnostic Test (Routine) - Closed Specialty Diagnoses / Procedures Referred By Marques livingston Referred To Contact Diagnoses Presence of internal carotid stent Procedures Carotid Duplex, Bilateral Basim Barr MD [facility] [place] [address] [facility] Vascular Lab [address] [place] [address] Referral ID Status Reason Start Date Expiration Date V isits Requested Visits Authorized [id number] Closed Specialty Service Requested 08/15/2021 08/15/2022 1 1 Encounter Details Date Type Department Care Team (Late st Contact Info) Description 08/15/2021 9:45 AM EDT Office [place] [address] Basim Barr MD [facility] [place] [address] Presence of internal carotid stent Social History [...] ICA stenosis following CEA. Outside CTA from [facility] reviewed and shows a high [...] left eye. He has not seen an senior network architect in some time. reports that he quit [...] a dye used during vascular procedure at [facility] in [place]: shaking Has tolerated [...] Text Report Department: Vascular Surgery Lab Patient: [id number] (THA SADLER) CPT: 34411 Referring Physician: AL FLORES Phone: Indications: S/p [...] replacement as needed. He should see an senior network architect for follow-up of his continued right eye [...] TH Visit (TeleHealth) Radiation Oncology at [address] [phone] Ping Moore PA [facility] DR [place] [address] 03/26/2024 9:30 AM EST Office Visit Hematology/Oncology at [address] [phone] Yessi Renee APRN [address] [place] [address] DR HEMATOLOGY AND ONCOLOGY [place], [place] [address] 03/26/2024 9:30 AM EST Infusion Hematology Oncology at [address] [phone] 04/09/2024 9:30 AM EST Office Visit Hematology/Oncology at [address] [phone] Cl Hess MD [facility] [place] [address] [address] HEMATOLOGY AND ONCOLOGY [place], [place] [phone] 04/09/2024 10:00 AM EST Infusion Hematology Oncology at [address] [phone] 04/23/2024 9:30 AM EST Office Visit Hematology/Oncology at [address] [phone] Cl Hess MD [facility] [place] [address] [address] HEMATOLOGY AND ONCOLOGY [place], [place] [phone] 04/23/2024 10:00 AM EST Infusion Hematology Oncology at [address] [phone] 05/18/2024 4:30 PM EDT TH Visit (TeleHealth) [place] [address] Malcahi Rothman MD [facility] [place] [address] documented as of this encounter Results * Carotid Duplex, Bilateral (10/12/2022 9:31 AM EDT) VB Text Report Department: Vascular Surgery Lab Patient: [id number] (THA SADLER) CPT: 16070 Referring Physician: BASIM BRAR ?? Indications: HX Right carotid stent, Left [...] stent documented in this encounter Care Teams Rn Float Relationship Specialty Start Date End Date Alo Carey DO [address] [place] [address] [place] [address] PCP - General Internal Medicine 08/31/20 07/03/23 documented as of this encounter
--- OUTSIDE RECORDS SUMMARY | 2024-03-12 10:57 | XMS_ITS | Encounter Summary ---
Author Organization [facility] [place] [address] Care Team Providers Care Printing Services Coordinator Name Role Phone Alo Carey DO Primary Care Provider [phone] Encounter Details Date Type Department Care Team (Late st Contact Info) Description 07/18/2021 10:05 PM EDT Ancillary Procedure Radiology Library at [facility] [place] [phone] Social History Tobacco Use Types Packs/Day Years [...] TH Visit (TeleHealth) Radiation Oncology at [address] [phone] Ping Moore PA [facility] HEMATOLOGY [place] [address] 03/26/2024 9:30 AM EST Office Visit Hematology/Oncology at [address] [phone] [address] HEMATOLOGY AND ONCOLOGY [place], [place] [address] 03/26/2024 9:30 AM EST Infusion Hematology Oncology at [address] [phone] 04/09/2024 9:30 AM EST Office Visit Hematology/Oncology at [address] [phone] Cl Hess MD [facility] [place] [address] [address] HEMATOLOGY AND ONCOLOGY [place], [place] [phone] 04/09/2024 10:00 AM EST Infusion Hematology Oncology at [address] [phone] 04/23/2024 9:30 AM EST Office Visit Hematology/Oncology at [address] [phone] Cl Hess MD [facility] [place] [address] [address] HEMATOLOGY AND ONCOLOGY [place], [place] [address] 04/23/2024 10:00 AM EST Infusion Hematology Oncology at [address] [phone] 05/18/2024 4:30 PM EDT TH Visit (TeleHealth) [place] [address] Malachi Rothman MD [facility] DR [place] [address] documented as of this encounter Procedures Procedure [...] who have questions please contact the health home care rn that requested your imaging first. ? Narrative 07/19/2021 8:15 AM EDT EXAMINATION: REQUEST FOR 2ND READ CT HEAD AND SPINE CLINICAL HISTORY: AMS and visual hallucinations. Recent R ICA TCAR 07/14, Please compare with earlier Head CT; Sending Institution [facility]; Date of exam [id number]; I believe a reinterpretation of this exam may alter care of Patient. Yes TECHNIQUE: CTA carotids and [place] performed following the intravenous administration of 100 mL Omnipaque 350. Study was performed at [facility] on 07/18/2021 COMPARISON: Angiogram images 07/14/2021 [...] compare with earlier Head CT; Sending Institution [facility];Date of exam [id number]; I believe a reinterpretation of this exam may alter careof Patient. Yes TECHNIQUE: CTA carotids and [place] performed following theintravenous administration of 100 mL Omnipaque 350. Study was performed at [facility] on 07/18/2021 COMPARISON: Angiogram images 07/14/2021 [...] patients who have questions please contactthe health home care rn that requested your imaging first. Electronically signed by: Andrew Canseco MD, [facility]([phone]), at 07/19/2021 8:15 AM Salome Rodriguez APRN IMG OUTSIDE INTERPRE TATION ORDERABLES documented in this encounter Visit Diagnoses Not on filedocumented in this encounter Care Teams Printing Services Coordinator Relationship Specialty Start Date End Date Alo Carey DO [address] [place] [address] [place] [phone] PCP - General Internal Medicine 08/31/20 07/03/23 documented as of this encounter
--- OUTSIDE RECORDS SUMMARY | 2024-03-12 10:58 | XMS_ITS | Encounter Summary ---
Author Organization [facility] [place] [address] Care Team Providers Care Angle Bender Name Role Phone Alo Carey DO Primary Care Provider [phone] Encounter Details Date Type Department Care Team (Late st Contact Info) Description 07/14/2021 10:45 AM EDT Ancillary Procedure Radiology Library at [facility] [place] [phone] Social History Tobacco Use Types Packs/Day Years [...] TH Visit (TeleHealth) Radiation Oncology at [address] [phone] Ping Moore PA [facility] [place] [address] 03/26/2024 9:30 AM EST Office Visit Hematology/Oncology at [address] [phone] HEMATOLOGY AND ONCOLOGY [place], [place] [address] 03/26/2024 9:30 AM EST Infusion Hematology Oncology at [address] [phone] 04/09/2024 9:30 AM EST Office Visit Hematology/Oncology at [address] [phone] Cl Hess MD [facility] [place] [address] HEMATOLOGY AND ONCOLOGY [place], [place] [phone] 04/09/2024 10:00 AM EST Infusion Hematology Oncology at [address] [phone] 04/23/2024 9:30 AM EST Office Visit Hematology/Oncology at [address] [phone] Cl Hess MD [facility] [place] [address] [address] HEMATOLOGY AND ONCOLOGY [place], [place] [address] 04/23/2024 10:00 AM EST Infusion Hematology Oncology at [address] [phone] 05/18/2024 4:30 PM EDT TH Visit (TeleHealth) [place] [address] Malachi Rothman MD [facility] [place] [address] documented as of this encounter Procedures Procedure Name Priority Date/Time Associated Diagnosis Comments IR OR VASC ANGIOGRAM IMAGE STORAGE ONLY Routine 07/14/2021 10:41 AM EDT documented in this encounter Results * IR OR VASC Aniogram Image Storage Only (07/14/2021 10:41 AM EDT) Narrative [facility] - 07/14/2021 10:41 AM EDT This exam is auto-finalizing. It's purpose is for storage only. Basim Barr MD [facility] FILM LIBRARY ORD ERABLES [place], [place] documented in this encounter Visit Diagnoses Not on filedocumented in this encounter Care Teams Angle Bender Relationship Specialty Start Date End Date Alo Carey DO [address] [place] [address] [place] [address] PCP - General Internal Medicine 08/31/20 07/03/23 documented as of this encounter
--- OUTSIDE RECORDS SUMMARY | 2024-03-12 10:58 | XMS_ITS | Encounter Summary ---
[place] [address] Care Team Providers Care Controller Instructor Name Role Phone Alo Carey DO Primary Care Provider Encounter Details Date Type Department Care Team (Late st Contact Info) Description 06/28/2021 Notes Only Radiation Oncology at [address] [phone] Bigg Peters MD [address] [place] [address] [place] [address] Social History Tobacco Use Types [...] Time: 0800 Time of Procedure: 08:45 Location: [facility] Why gold coils? You and your doctor [...] ] Prescriptions to get filled: Navid chan Hawks Prescription for Antibiotic: to prevent infection [ [...] will receive separate instructions specifically from the [facility] concerning your exact arrival time and what you need to do to prepare for this. Date: 07/11 around 1:00 ?? Your planning session (simulation) will be done at : [ x ] [facility] at the Radiation Oncology Department section 2K [ ] [facility] [place], [place] [Date: 07/11/21 ] [Time:arrive at 2:30 [...] of these instructions. How to reach us: [facility] [phone] For weekends and after hours: Call [facility] ask for the bar machine operator production radiation oncologis documented in this encounter Plan of Treatment Upcoming Encounters Date Type Department Care Team (Late st Contact Info) Description 03/24/2024 9:00 AM EST TH Visit (TeleHealth) Radiation Oncology at [address] [phone] Ping Moore PA [facility] DR HEMATOLOGY [place] [address] 03/26/2024 9:30 AM EST Office Visit Hematology/Oncology at [address] [phone] Yessi Renee [address] HEMATOLOGY AND ONCOLOGY [place], [place] [phone] 03/26/2024 9:30 AM EST Infusion Hematology Oncology at [address] [phone] 04/09/2024 9:30 AM EST Office Visit Hematology/Oncology at [address] [phone] Cl Hess MD [facility] [place] [address] Yess[address] Renee [address] HEMATOLOGY AND ONCOLOGY [place], [place] [address] 04/09/2024 10:00 AM EST Infusion Hematology Oncology at [address] [phone] 04/23/2024 9:30 AM EST Office Visit Hematology/Oncology at [address] [phone] Cl Hess MD [facility] [place] [address] Yessi Renee APRN [address] [place] [address] DR [place] [address] 04/23/2024 10:00 AM EST Infusion Hematology Oncology at [address] [phone] 05/18/2024 4:30 PM EDT TH Visit (TeleHealth) [place] [address] Malachi Rothman MD [facility] DR [place] [address] documented as of this encounter Visit Diagnoses Diagnosis Malignant neoplasm of prostate documented in this encounter Care Teams Controller Instructor Relationship Specialty Start Date End Date Alo Carey DO [address] [place] [address] [place] [address] PCP - General Internal Medicine 08/31/20 07/03/23 documented as of this encounter
--- OUTSIDE RECORDS SUMMARY | 2024-03-12 10:58 | XMS_ITS | Encounter Summary ---
[place] [address] Care Team Providers Care Mine Promotor Name Role Phone YungAlo santiago Primary Care Provider [phone] Encounter Details Date Type Department Care Team (Late st Contact Info) Description 07/12/2021 [place]phone [place] [phone] Delia Templeton Social History Tobacco Use Types [...] patient. Patient needs COVID test done at [facility] in [facility]. PLEASE FAX ORDERS TO [phone] Ordering provider: Dr. Basim Barr Testing Facility: [facility] Date of Testin07/12/21 Time of Testing: TBD Symptoms: Pre OP documented in this encounter Plan of Treatment Upcoming Encounters Date Type Department Care Team (Late st Contact Info) Description 03/24/2024 9:00 AM EST TH Visit (TeleHealth) Radiation Oncology at [address] [phone] Ping Moore PA [facility] HEMATOLOGY [place] [address] 03/26/2024 9:30 AM EST Office Visit Hematology/Oncology at [address] [phone] Yessi Renee [address] [place] [address] 03/26/2024 9:30 AM EST Infusion Hematology Oncology at [address] [phone] 04/09/2024 9:30 AM EST Office Visit Hematology/Oncology at [address] [phone] Cl Hess MD [facility] [place] [address] [address] HEMATOLOGY AND ONCOLOGY [place], [place] [address] 04/09/2024 10:00 AM EST Infusion Hematology Oncology at [address] [phone] 04/23/2024 9:30 AM EST Office Visit Hematology/Oncology at [address] [phone] Cl Hess MD [facility] [place] [address] Yessi Renee APRN [address] [place] [address] DR HEMATOLOGY AND ONCOLOGY [place], [place] [address] 04/23/2024 10:00 AM EST Infusion Hematology Oncology at [address] [phone] 05/18/2024 4:30 PM EDT TH Visit (TeleHealth) [place] [address] Malachi Rothman MD [facility] RADI[place] [address] documented as of this encounter Visit Diagnoses Not on filedocumented in this encounter Care Teams Mine Promotor Relationship Specialty Start Date End Date Alo Carey DO [address] [place] [address] [place] [phone] PCP - General Internal Medicine 08/31/20 07/03/23 documented as of this encounter
--- OUTSIDE RECORDS SUMMARY | 2024-03-12 10:58 | XMS_ITS | Encounter Summary ---
[place] [address] Care Team Providers Care Wireless Operator Name Role Phone YungAlo santiago Primary Care Provider [phone] Reason for Visit * Auth/Cert Specialty Diagnoses [...] Expiration Date Visits Re quested Visits Authorized [id number] 1 1 Encounter Details Date Type Department Care Team (Late st Contact Info) Description 07/14/2021 8:41 AM EDT Anesthesia [place] [address] Jasmin Cunningham MD [facility] [place] [address] Radha Hogue CRNA [facility] [place] [address] Anesthesia Record Procedure Summary Procedure Name Responsible [...] and expected post-operative course (including disposition.) Radha Duran CRNA 0935 Procedure Start 0948 Heparin 1003 Vascular [...] cubital vein (antecubital fossa), left; 20 gauge; ANICETO RN; 07/17/21; 1113 07/14/21 0836 by Radha Hogue, MATERIAL CONTROL MANAGER 07/17/21 111 by Inga Joel, RN ETT Mask Ventilation: Difficult (3); ETT Type: Cuffed, Oral; ETT Size: 7.5 mm; Mac Blade: 4; Notes: Asleep, Stylette, Pre-O2, Cricoid Pressure; Attempts: 1; Laryngoscopy Grade: 2; ETT Placement Verified By: Capnometry, Visual; Secured at Teeth: 23 cm; Inserted by: [facility] equip maint eng; Removal Date: 07/14/21; Removal Time: 105607/14/21 08 by Radha Hogue, MATERIAL CONTROL MANAGER 07/14/21 105 by Navin Ryan CRNA (RETIRED) Peripheral IV Line - Single Lumen 07/14/21; 0900; dorsal arch vein (top of hand), right; 16 gauge; Octavio; 07/17/21; 11107/14/21 0900 by Radha Hogue, MARITZA 07/17/21 111 by Inga Joel, RN Urethral Catheter 07/14/21; 0900; Physician order; [...] 07/14/21; 1541 07/14/21 0904 by Radha Hogue, MATERIAL CONTROL MANAGER 07/14/21 1541 by Taylor Rivera RN Incision [...] Procedure Summary Date: 07/14/21 Room / Location: [address] MAIN OR Anesthesia Start: 840 Anesthesia [...] All Anesthesia Providers: Anesthesiologist: Jasmin Cunningham MD MATERIAL CONTROL MANAGER: Navin Ryan CRNA; Radha Duran CRNA Vitals Value Taken Time BP 134/74 07/14/21 1553 Temp 36 ??C (96.8 ??F) 07/14/21 1530 Pulse 76 07/14/21 1553 Resp 15 07/14/21 1553 SpO2 97 % 07/14/21 1600 Pain Level 3 07/14/21 1530 Vitals shown include unvalidated device data. Patient Location: PACU/SDP Level of Consciousness: Awake and Alert Pain [...] 10/10/2020 ??? s/p L JIMI, posterior, Dr. uW, 10/10/20 10/10/2020 ??? ASCVD (arteriosclerotic cardiovascular disease) [...] by Cayetano Engle MD at [facility] MAIN OR ??? PRO TOTAL HIP ARTHROPLASTY Left 10/10/2020 TOTAL HIP ARTHROPLASTY - POSTERIOR (WRVU 20.72) performed by Ismael Wu MD at [facility] MAIN OR Social History Tobacco Use [...] procedure at [facility] in [place]: shaking Has tolerated [...] consented to blood products. Plan discussed with MATERIAL CONTROL MANAGER. Anesthesia Screening documented in this encounter Plan of Treatment Upcoming Encounters Date Type Department Care Team (Late st Contact Info) Description 03/24/2024 9:00 AM EST TH Visit (TeleHealth) Radiation Oncology at [address] [phone] Ping Moore PA [facility] HEMATOLOGY [place] [address] 03/26/2024 9:30 AM EST Office Visit Hematology/Oncology at [address] [phone] [address] HEMATOLOGY AND ONCOLOGY [place], [place] [address] [phone] 03/26/2024 9:30 AM EST Infusion Hematology Oncology at [address] [phone] 04/09/2024 9:30 AM EST Office Visit Hematology/Oncology at [address] [phone] Cl Hess MD [facility] [place] [address] [address] HEMATOLOGY AND ONCOLOGY [place], [place] [phone] 04/09/2024 10:00 AM EST Infusion Hematology Oncology at [address] [phone] 04/23/2024 9:30 AM EST Office Visit Hematology/Oncology at [address] [phone] Cl Hess MD [facility] [place] [address] [address] HEMATOLOGY AND ONCOLOGY [place], [place] [address] 04/23/2024 10:00 AM EST Infusion Hematology Oncology at [address] [phone] 05/18/2024 4:30 PM EDT TH Visit (TeleHealth) [place] [address] Malachi Rothman MD [facility] [place] [address] documented as of this encounter Visit Diagnoses Not on filedocumented in this encounter Administered Medications Inactive Administered Medications - up to 3 most recent administrations Medication Order MAR Action Action Date Dose Rate Site ceFAZolin (Ancef) 2 g in dextrose 5% 100 mL infusion 2 g, Intravenous, TRAVEL PT TO O.R., 1 dose, On Sat07/14/21 at [...] mg documented in this encounter Care Teams Wireless Operator Relationship Specialty Start Date End Date Alo Carey DO [address] [place] [address] [place] [address] PCP - General Internal Medicine 08/31/20 07/03/23 documented as of this encounter
--- OUTSIDE RECORDS SUMMARY | 2024-03-12 10:58 | XMS_ITS | Encounter Summary ---
Author Organization [facility] [place] [address] Care Team Providers Care Peoplesoft Taleo Manager Name Role Phone Alo Carey DO Primary Care Provider [phone] Encounter Details Date Type Department Care Team (Late st Contact Info) Description 07/18/2021 12:05 PM EDT Ancillary Procedure Radiology Library at [facility] [place] [address] Alo Carey DO [address] [place] [phone] Social History Tobacco Use Types Packs/Day Years [...] TH Visit (TeleHealth) Radiation Oncology at [address] [phone] Ping Moore PA [facility] DR HEMATOLOGY [place] [address] 03/26/2024 9:30 AM EST Office Visit Hematology/Oncology at [address] [phone] [address] HEMATOLOGY AND ONCOLOGY [place], [place] [phone] 03/26/2024 9:30 AM EST Infusion Hematology Oncology at [address] [phone] 04/09/2024 9:30 AM EST Office Visit Hematology/Oncology at [address] [phone] Cl Hess MD [facility] [place] [address] [address] HEMATOLOGY AND ONCOLOGY [place], [place] [phone] 04/09/2024 10:00 AM EST Infusion Hematology Oncology at [address] [phone] 04/23/2024 9:30 AM EST Office Visit Hematology/Oncology at [address] [phone] Cl Hess MD [facility] [place] [address] [address] HEMATOLOGY AND ONCOLOGY [place], [place] [phone] 04/23/2024 10:00 AM EST Infusion Hematology Oncology at [address] [phone] 05/18/2024 4:30 PM EDT TH Visit (TeleHealth) [place] [address] Malachi Rothman MD [facility] [place] [address] documented as of this encounter Procedures Procedure Name Priority Date/Time Associated Diagnosis Comments FILM LIBRARY STORAGE ONLY DX CHEST Routine 07/18/2021 11:57 AM EDT documented in this encounter Results * Film Library- Storage Only DX Chest (07/18/2021 11:57 AM EDT) Narrative [facility] - 07/18/2021 11:57 AM EDT This exam is auto-finalizing. It's purpose is for storage only. Alo Carey DO [facility] FILM LIBRARY ORD ERABLES [place], [place] documented in this encounter Visit Diagnoses Not on filedocumented in this encounter Care Teams Peoplesoft Taleo Manager Relationship Specialty Start Date End Date Alo Carey DO [address] [place] [address] [place] [address] PCP - General Internal Medicine 08/31/20 07/03/23 documented as of this encounter
--- OUTSIDE RECORDS SUMMARY | 2024-03-12 10:58 | XMS_ITS | Encounter Summary ---
[place] [address] Care Team Providers Care Warehouse Operations Manager Name Role Phone Cherry Alo Lon RUTHERFORD Primary Care Provider [phone] Reason for Referral * Diagnostic Test (Routine) - Closed Specialty Diagnoses / Procedures Referred By Marques livingston Referred To Contact Radiology Diagnoses Malignant neoplasm of prostate Procedures MRI Pelvis wo (Prostate) Bigg Peters MD [address] [place] [address] [place] [address] [place] [address] Referral ID Status Reason Start Date Expiration Date V isits Requested Visits Authorized [id number] Closed Specialty Service Requested 04/11/2021 10/09/2022 1 [...] Expiration Date Visits Re quested Visits Authorized [id number] 1 1 Encounter Details Date Type Department Care Team (Latest Contact Info) Description 07/11/2021 12:43 PM EDT - 07/11/2021 11:59 PM EDT Hospital [place] [address] Bigg Peters MD [address] [place] [address] DR RADIATION ONCOLOGY [place], [place] [phone] Malignant neoplasm of prostate Discharge Disposition: Home Social History Tobacco Use Types Packs/Day Years Used Date Smoking Tobacco: Former Cigarettes 4 1 1992 Smokeless Tobacco: Never Alcohol Use [...] TH Visit (TeleHealth) Radiation Oncology at [address] [phone] Ping Moore PA [facility] DR [place] [address] 03/26/2024 9:30 AM EST Office Visit Hematology/Oncology at [address] [phone] Yessi Renee, [address] HEMATOLOGY AND ONCOLOGY [place], [place] [phone] 03/26/2024 9:30 AM EST Infusion Hematology Oncology at [address] [phone] 04/09/2024 9:30 AM EST Office Visit Hematology/Oncology at [address] [phone] Cl Hess MD [facility] [place] [address] [address] HEMATOLOGY AND ONCOLOGY [place], [place] [address] 04/09/2024 10:00 AM EST Infusion Hematology Oncology at [address] [phone] 04/23/2024 9:30 AM EST Office Visit Hematology/Oncology at [address] [phone] Cl Hess MD [facility] [place] [address] Yessi Renee APRN [address] [place] [address] DR HEMATOLOGY AND ONCOLOGY [place], [place] [address] 04/23/2024 10:00 AM EST Infusion Hematology Oncology at [address] [phone] 05/18/2024 4:30 PM EDT TH Visit (TeleHealth) [place] [address] Malachi Rothman MD [facility] [place] [address] documented as of this encounter Procedures Procedure [...] have questions please contact the health home health care coordinator that requested your imaging first. ? Electronically signed by: Madan Angel MD, [facility] ([phone]), at 07/12/2021 5:26 PM Narrative 07/12/2021 5:26 [...] who have questions please contactthe health home health care coordinator that requested your imaging first. Electronically signed by: Madan Angel MD, [facility]([phone]), at 07/12/2021 5:26 PM Bigg Peters MD IMG MRI ORDERABLES documented in this encounter Visit Diagnoses Diagnosis Malignant neoplasm of prostate documented in this encounter Care Teams Warehouse Operations Manager Relationship Specialty Start Date End Date Alo Carey DO [address] [place] [address] [place] [address] PCP - General Internal Medicine 08/31/20 07/03/23 documented as of this encounter
--- OUTSIDE RECORDS SUMMARY | 2024-03-12 10:58 | XMS_ITS | Encounter Summary ---
[place] [address] Care Team Providers Care Financial Services Director Name Role Phone YungAlo santiago Primary Care Provider [phone] Encounter Details Date Type Department Care Team (Late st Contact Info) Description 07/04/2021 Telephone Radiation Oncology at [address] [phone] Juli Tripathi RN Social History [...] PM EDT Radiation Oncology Nurse Telephone Note [place], [place] Telephone call to patient. PCP's office [...] EST TH Visit (TeleHealth) Radiation Oncology at [address] [phone] Ping Moore PA [facility] [place] [address] 03/26/2024 9:30 AM EST Office Visit Hematology/Oncology at [address] [phone] Yessi Renee [address] HEMATOLOGY AND ONCOLOGY [place], [place] [address] 03/26/2024 9:30 AM EST Infusion Hematology Oncology at [address] [phone] 04/09/2024 9:30 AM EST Office Visit Hematology/Oncology at [address] [phone] lC Hess MD [facility] [place] [address] Yessi Renee APRN [facility] DR HEMATOLOGY [place] [address] 04/09/2024 10:00 AM EST Infusion Hematology Oncology at [address] [phone] 04/23/2024 9:30 AM EST Office Visit Hematology/Oncology at [address] [phone] Cl Hess MD [facility] [place] [address] [address] HEMATOLOGY [place] [address] 04/23/2024 10:00 AM EST Infusion Hematology Oncology at [address] [phone] 05/18/2024 4:30 PM EDT TH Visit (TeleHealth) [place] [address] Malachi Rothman MD [facility] [place] [address] documented as of this encounter Visit Diagnoses Not on filedocumented in this encounter Care Teams Financial Services Director Relationship Specialty Start Date End Date Alo Carey DO [address] [place] [address] [place] [address] PCP - General Internal Medicine 08/31/20 07/03/23 documented as of this encounter
--- OUTSIDE RECORDS SUMMARY | 2024-03-12 10:58 | XMS_ITS | Encounter Summary ---
[place] [address] Care Team Providers Care General Operations Agent Name Role Phone YungAlo santiago Primary Care Provider [phone] Encounter Details Date Type Department Care Team (Late st Contact Info) Description 07/03/2021 Telephone Radiation Oncology at [address] [phone] Nicole Bhatt RN Social History [...] TH Visit (TeleHealth) Radiation Oncology at [address] [phone] Ping Moore PA [facility] DR HEMATOLOGY [place] [address] 03/26/2024 9:30 AM EST Office Visit Hematology/Oncology at [address] [phone] Yessi Renee, [address] HEMATOLOGY AND ONCOLOGY [place], [place] [phone] 03/26/2024 9:30 AM EST Infusion Hematology Oncology at [address] [phone] 04/09/2024 9:30 AM EST Office Visit Hematology/Oncology at [address] [phone] Cl Hess MD [facility] [place] [place] [address] Yessi Renee [address] HEMATOLOGY AND ONCOLOGY [place], [place] [address] 04/09/2024 10:00 AM EST Infusion Hematology Oncology at [address] [phone] 04/23/2024 9:30 AM EST Office Visit Hematology/Oncology at [address] [phone] Cl Hess MD [facility] [place] [place] [address] Yessi Renee APRN [address] [place] [address] DR HEMATOLOGY AND ONCOLOGY [place], [place] [address] 04/23/2024 10:00 AM EST Infusion Hematology Oncology at [address] [phone] 05/18/2024 4:30 PM EDT TH Visit (TeleHealth) [place] [address] Malachi Rothman MD [facility] [place] [address] documented as of this encounter Visit Diagnoses Not on filedocumented in this encounter Care Teams General Operations Agent Relationship Specialty Start Date End Date Alo Carey DO [address] [place] [address] [place] [phone] PCP - General Internal Medicine 08/31/20 07/03/23 documented as of this encounter
--- OUTSIDE RECORDS SUMMARY | 2024-03-12 10:58 | XMS_ITS | Encounter Summary ---
[place] [address] Care Team Providers Care Personal Caregiver Name Role Phone Alo Carey Primary Care Provider [phone] Encounter Details Date Type Department Care Team (Late st Contact Info) Description 07/05/2021 8:30 AM EDT Procedure visit Radiation Oncology at [address] [phone] Bigg Peters MD [address] [place] [address] [place] [address] Malignant neoplasm of prostate Social [...] will receive separate instructions specifically from the [facility] concerning your exact arrival time and what you need to do to prepare for this. Date: 07/11 around 1:00 Your planning session (simulation) will be done at : [ x ] [facility] at the Radiation Oncology Department section 2K T [Date: 07/11/21 ] [Time:arrive at 2:30 ] For proper visualization of prostate, it is required that you have a moderately full bladder. This will require you to arrive 30 minutes before scheduled appointment and drink 2 glasses of water upon arrival. There are no restrictions with eating. 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 [ yes ] reviewed allergies. Allergies Allergen Reactions ??? Cyclobenzaprine Other (See Comments) Extreme moodiness ??? Other [Unclassified Drug] Other (See Comments) Had reaction to a dye used during vascular procedure at [facility] in [place]: shaking Has tolerated MRI and [...] were reviewed with him. He has the [facility] phone number and verbalized understanding to ask for the direct sales consultant radiation oncologist if he needs to call after clinic hours. [ n/a ] If applicable: He was reminded to not drive home due to Lorazepam. Pantograph Transferrer: Sergio Sadler, brother (pt unable to drive [...] to undergo MRI of the prostate at [facility]. documented in this encounter Plan of Treatment Upcoming Encounters Date Type Department Care Team (Late st Contact Info) Description 03/24/2024 9:00 AM EST TH Visit (TeleHealth) Radiation Oncology at [address] [phone] Ping Moore PA [facility] HEMAT[facility] [place] [address] 03/26/2024 9:30 AM EST Office Visit Hematology/Oncology at [address] [phone] Yessi Renee [address] HEMATOLOGY AND ONCOLOGY [place], [place] [id number] 03/26/2024 9:30 AM EST Infusion Hematology Oncology at [address] [phone] 04/09/2024 9:30 AM EST Office Visit Hematology/Oncology at [address] [phone] Cl Hess MD [facility] [place] [place] [address] Yessi Renee [address] HEMATOLOGY AND ONCOLOGY [place], [place] [phone] 04/09/2024 10:00 AM EST Infusion Hematology Oncology at [address] [phone] 04/23/2024 9:30 AM EST Office Visit Hematology/Oncology at [address] [phone] Cl Hess MD [facility] [place] [address] Yessi Renee [address] [place] [address] 04/23/2024 10:00 AM EST Infusion Hematology Oncology at [address] [phone] 05/18/2024 4:30 PM EDT TH Visit (TeleHealth) [place] [phone] Malachi Rothmna MD [facility] [place] [address] documented as of this encounter Visit Diagnoses Diagnosis Malignant neoplasm of prostate documented in this encounter Care Teams Personal Caregiver Relationship Specialty Start Date End Date Alo Carey DO [address] [place] [address] [place] [phone] PCP - General Internal Medicine 08/31/20 07/03/23 documented as of this encounter
--- OUTSIDE RECORDS SUMMARY | 2024-03-12 10:58 | XMS_ITS | Encounter Summary ---
Author Organization [facility] [place] [address] Care Team Providers Care Soda Jerker Name Role Phone CherryAlo Lon RUTHERFORD Primary Care Provider [phone] Reason for Referral * Diagnostic Test (Routine) - Closed Specialty Diagnoses / Procedures Referred By Marques livingston Referred To Contact Diagnoses Stenosis of carotid artery, unspecified laterality History of cerebrovascular accident History of carotid endarterectomy Procedures Carotid Duplex, Bilateral Al Huerta APRN [facility] [place] [address] [facility] Vascular [address] [place] [address] Referral ID Status Reason Start Date Expiration Date V isits Requested Visits Authorized [id number] Closed Specialty Service Requested 07/16/2021 07/16/2022 1 [...] Expiration Date Visits Re quested Visits Authorized [id number] 1 1 Encounter Details Date Type Department Care Team (Latest Contact Info) Description 07/14/2021 6:53 AM EDT - 07/17/2021 4:32 PM EDT Hospital Encounter [id number] Progressive Care Unit [facility] [address] [place] [phone] Basim Barr MD [facility] [place] [address] Stenosis of carotid artery, unspecified laterality; Pre-op [...] documented in this encounter Discharge Summaries * Jake, Marga Herndon APRN - 07/17/2021 8:17 AM EDT Inpatient [...] R TCAR performed with predilation to 4.5mm. [id number] Enroute stent placed and post- dilated to [...] PM STJ RAD/ONC, TREATMENT Radiation Oncology at [facility] Arrive at: [facility] door at end of hallway [phone] 07/27/2021 2:45 PM STJ RAD/ONC, TREATMENT Radiation Oncology at [facility] Arrive at: [facility] door at end of hallway [phone] 07/28/2021 12:15 PM STJ RAD/ONC, TREATMENT Radiation Oncology at [facility] Arrive at: [facility] door at end of hallway [phone] 08/01/2021 12:45 PM STJ RAD/ONC, TREATMENT Radiation Oncology at [facility] Arrive at: [facility] door at end of hallway [phone] 08/02/2021 12:45 PM STJ RAD/ONC, TREATMENT Radiation Oncology at [facility] Arrive at: [facility] door at end of hallway [phone] 08/03/2021 12:45 PM STJ RAD/ONC, TREATMENT Radiation Oncology at [facility] Arrive at: [facility] door at end of hallway [phone] 08/04/2021 1:00 PM STJ RAD/ONC, TREATMENT Radiation Oncology at [facility] Arrive at: [facility] door at end of hallway [phone] 08/07/2021 12:45 PM STJ RAD/ONC, TREATMENT Radiation Oncology at [facility] Arrive at: [facility] door at end of hallway [phone] 08/08/2021 12:45 PM STJ RAD/ONC, TREATMENT Radiation Oncology at [facility] Arrive at: [facility] door at end of hallway [phone] 08/09/2021 12:45 PM STJ RAD/ONC, TREATMENT Radiation Oncology at [facility] Arrive at: [facility] door at end of hallway [phone] 08/10/2021 12:45 PM STJ RAD/ONC, TREATMENT Radiation Oncology at [facility] Arrive at: [facility] door at end of hallway [phone] 08/11/2021 1:00 PM STJ RAD/ONC, TREATMENT Radiation Oncology at [facility] Arrive at: [facility] door at end of hallway [phone] 08/14/2021 12:45 PM STJ RAD/ONC, TREATMENT Radiation Oncology at [facility] Arrive at: [facility] door at end of hallway [phone] 08/15/2021 12:45 PM STJ RAD/ONC, TREATMENT Radiation Oncology at [facility] Arrive at: [facility] door at end of hallway [phone] 08/16/2021 12:45 PM STJ RAD/ONC, TREATMENT Radiation Oncology at [facility] Arrive at: [facility] door at end of hallway [phone] 08/17/2021 12:45 PM STJ RAD/ONC, TREATMENT Radiation Oncology at [facility] Arrive at: [facility] door at end of hallway [phone] 08/18/2021 12:45 PM STJ RAD/ONC, TREATMENT Radiation Oncology at [facility] Arrive at: [facility] door at end of hallway [phone] 08/21/2021 12:45 PM STJ RAD/ONC, TREATMENT Radiation Oncology at [facility] Arrive at: [facility] door at end of hallway [phone] 08/22/2021 12:45 PM STJ RAD/ONC, TREATMENT Radiation Oncology at [facility] Arrive at: [facility] door at end of hallway [phone] 08/23/2021 12:45 PM STJ RAD/ONC, TREATMENT Radiation Oncology at [facility] Arrive at: [facility] door at end of hallway [phone] 08/24/2021 12:45 PM STJ RAD/ONC, TREATMENT Radiation Oncology at [facility] Arrive at: [facility] door at end of hallway [phone] 08/25/2021 12:45 PM STJ RAD/ONC, TREATMENT Radiation Oncology at [facility] Arrive at: [facility] door at end of hallway [phone] 08/28/2021 12:45 PM STJ RAD/ONC, TREATMENT Radiation Oncology at [facility] Arrive at: [facility] door at end of hallway [phone] 08/29/2021 12:45 PM STJ RAD/ONC, TREATMENT Radiation Oncology at [facility] Arrive at: [facility] door at end of hallway [phone] 08/30/2021 12:45 PM STJ RAD/ONC, TREATMENT Radiation Oncology at [facility] Arrive at: [facility] door at end of hallway [phone] 08/31/2021 12:45 PM STJ RAD/ONC, TREATMENT Radiation Oncology at [facility] Arrive at: [facility] door at end of hallway [phone] 09/01/2021 12:45 PM STJ RAD/ONC, TREATMENT Radiation Oncology at [facility] Arrive at: [facility] door at end of hallway [phone] 09/05/2021 12:45 PM STJ RAD/ONC, TREATMENT Radiation Oncology at [facility] Arrive at: [facility] door at end of hallway [phone] Future Orders Complete By Expires Carotid Duplex, Bilateral [VAS1 Custom] 08/16/2021 07/16/2022 Process Instructions: There is no in-house vascular label coder available on weeknights (5pm-8am), weekends, or holidays. IF THIS IS A REQUEST FOR AN EMERGENT STUDY DURING THOSE HOURS, please have the senior provider responsible for the patient page the Vascular Surgery Fellow/Senior Resident network systems consultant to discuss options. Scheduling Instructions: Questions: Indication for study/signs & symptoms: s/p R TCAR Question to be answered: patency Preferred location?: [facility] Carotid Duplex, Bilateral [VAS1 Custom] 01/16/2022 07/16/2022 Process Instructions: There is no in-house vascular label coder available on weeknights (5pm-8am), weekends, or holidays. IF THIS IS A REQUEST FOR AN EMERGENT STUDY DURING THOSE HOURS, please have the senior provider responsible for the patient page the Vascular Surgery Fellow/Senior Resident network systems consultant to discuss options. Scheduling Instructions: Questions: Indication for study/signs & symptoms: s/p R TCAR Question to be answered: patency Preferred location?: [facility] XR Neck Soft Tissue (Generic) [66717 Custom] 01/16/2022 07/16/2022 Process Instructions: Scheduling Instructions: Questions: Where will study be performed?: [facility] Radiology Portable exam?: Reason for exam and clinical history: s/p R TCAR, assess for stent fracture Clinical information / fernando questions for radiologist: Stat read required?: Date of injury if applicable: Requested Time: Anticoagulation & Antiplatelet: Anticoagulation: not indicated Antiplatelet: Agent: ASA, Plavix Indication:ASCVD Intended Duration: jail For questions regarding these medications, please contact: [...] a dye used during vascular procedure at [facility] [place]: shaking Has tolerated [...] or questions please call our office at [phone] For issues on weeknights after 5pm and weekends please call [phone] and ask for the Vascular Fellow network systems consultant. documented in this encounter Discharge Instructions * [...] or questions please call our office at [phone] For issues on weeknights after 5pm and weekends please call [phone] and ask for the Vascular Fellow network systems consultant. documented in this encounter Medications at Time [...] PO hydration Anticoagulation: N/A Antiplatelet: ASA, plavix, [facility] Lexi Walker MD 07/16/2021 Pager: [phone] * Honey Farias RN - 07/16/2021 5:39 [...] Intake/Output Summary (Last 24 hours) at 07/15/2021 0979 Last data filed at 07/15/2021 0541 Gross [...] to void Anticoagulation: N/A Antiplatelet: ASA, plavix, [facility] Lexi Walker MD 07/15/2021 Pager: [phone] * Honey Farias RN - 07/15/2021 3:10 [...] change. PRN ZOfran 4mg given IV. 4W Driver Sales at bedside. MD Smallwood was made aware and came to bedside. Patient to be transferred to higher level of care for BP control with Nicardipine gtt. 2110~ Hydralazine 20mg given for BP 165/75 2132~ BP 133/66, HR91 2305~ Nicardipine gtt started at 5mg/hr for BP 158/81 by 4W RN Driver Sales, to titrate accordingly. MD Smallwood was paged and verified if the witt should still be removed at 12midnight considering that patient will be moved to PCU, awaiting call back for close monitoring. 253~ report given to CVT TECHAYE Méndez. Patient was transferred to PCU 428 [...] pain with oxycodone and tylenol for headache. [id number]: Patient ok 'd to go to floor, [...] 12.15) performed by Cayetano Engle MD at [facility] MAIN OR ??? PRO TOTAL HIP ARTHROPLASTY Left 10/10/2020 TOTAL HIP ARTHROPLASTY - POSTERIOR (WRVU 20.72) performed by Ismael Wu MD at [facility] MAIN OR Functional Status/Social Hx: Lives at [...] discussed and patient elects to proceed. Charleen Hi Madera Vascular Surgery Pager #[phone] documented in this encounter Procedure Notes * Jared Melvin MD - 07/14/2021 10:56 AM EDT NEURODIAGNOSTIC LABORATORY [facility] INTRAOPERATIVE MONITORING REPORT Name: Tha Sadler : 1950 Date of Surgery: 07/14/2021 Surgeon(s): Basim Barr MD; Wojciech Madera MD Surgical Procedure: right trans-carotid arterial revascularization (TCAR) Monitoring Procedure: Intraoperative scalp EEG monitoring and bilateral median nerve somatosensory evoked potentials (SSEPs). CPT Codes: 48571 (EEG), 53963 (upper SSEP bilateral), 62191 (IOM, 5 units), 76172 (IOM, 1 unit). Intraoperative neurophysiologic monitoring was [...] COVID test: Lab Results Component Value Date [id number] Not Detected 07/14/2021 Present on Admission: ??? [...] care provider on file: Alo Carey DO [phone] Pharmacy: [id number] AT [facility] & [address] [phone] Advance Care Planning: Attempt Cardiopulmonary Resuscitation - Inpatient <no information> -Advanced Directive: No, declines Current Functional Ability: Assistive Equipment and Assistive Person Functional Status Prior to Admission: Assistive Equipment Home Environment: Others in the home: sibling(s). Current Living Arrangements: home/apartment/condo. Accessibility Concerns:no concerns. Current DME: walker - rolling [address] [facility] [address] Social & Family Supports: All names listed below confirmed with patient as current and correct Extended Emergency Contact Information Primary Emergency Contact: AMY ROPER Address: [address] [place] [id number] [place] [address] of [employer] Relation: Significant Other Secondary [...] via car when medically ready. Registered Nurse Ripening Room Operator / Hospitality Workers will continue to follow patient???s progress and remain available if situation changes for coordination of care, psychosocial support and/or discharge planning. Office of Care Management Gissel SANTOS, RN Phone: [phone] Pager: [phone] * Plan of Care - Charlotte Sun [...] Madera MD - 07/14/2021 11:[address] [facility] Operative Note Patient Name: Tha Sadler : [id number] MR#: [id number] Case Date: 07/14/2021 Surgeon: Surgeon(s) and Role: [...] imaging. R TCAR performed with predilation to 4.5mm.[id number] Enroute stent placed and post-dilated to 5mm. [...] was exchanged for the Enroute Neuroprotection System ([employer]) arterial sheath. After confirming appropriate position, this [...] a 4.5x30mm angioplasty balloon. The Enroute stent ([id number]) was then deployed. Post-dilation was performed with [...] Implant Name Type Inv. Item Serial No. Edge Stainer Lot No. LRB No. Used Action SYSTEM STENT ENROUTE [id number] RX NIT ([id number]) (AUTOREQ) - [id number] IMPLANTS SYSTEM STENT ENROUTE [id number] RX NIT ([id number]) (AutoReq) [facility] [id number] Right 1 Implanted Associated attestation - Basim [...] TH Visit (TeleHealth) Radiation Oncology at [address] [phone] Ping Moore PA [facility] DR HEMATOLOGY [place] [address] 03/26/2024 9:30 AM EST Office Visit Hematology/Oncology at [address] [phone] HEMATOLOGY AND ONCOLOGY [place], [place] [phone] 03/26/2024 9:30 AM EST Infusion Hematology Oncology at [address] [phone] 04/09/2024 9:30 AM EST Office Visit Hematology/Oncology at [address] [phone] Cl Hess MD [facility] [place] [place] [address] HEMATOLOGY AND ONCOLOGY [place], [place] [address] 04/09/2024 10:00 AM EST Infusion Hematology Oncology at [address] [phone] 04/23/2024 9:30 AM EST Office Visit Hematology/Oncology at [address] [phone] Cl Hess MD [facility] [place] [place] [address] Yessi Renee APRN [address] [place] [address] DR HEMATOLOGY AND ONCOLOGY [place], [place] [address] 04/23/2024 10:00 AM EST Infusion Hematology Oncology at [address] [phone] 05/18/2024 4:30 PM EDT TH Visit (TeleHealth) [place] [address] Malachi Rothman MD [facility] [place] [address] documented as of this encounter Procedures Procedure [...] 07/14/2021 10:41 AM EDT RAPID COVID-19 PCR ([facility]) Routine 07/14/2021 10:00 AM EDT Exploration Not Followed By Surg Neck Artery ([id number]) 07/14/2021 8:42 AM EDT Stenosis of carotid artery, unspecified laterality Pre-op testing Place Transcatheter Stent, Cca W Embolic Ect (59213) 07/14/2021 8:42 AM EDT Stenosis of carotid [...] Text Report Department: Vascular Surgery Lab Patient: [id number] (THA SADLER) CPT: 54975 Referring Physician: AL HUERTA ?? Phone: Indications: [...] Huerta APRN VASCULAR ORDERABLES Performing Organization Address [facility] Phone Number [facility]ASCUBASE * POCT Glucose (07/17/2021 8:07 AM EDT) Glucose, POC 151 65 - 199 mg/dL [facility] Comment: Supplemental ranges: <140 mg/dL before meals <180 mg/dL all other times of the day Blood 07/17/2021 8:07 AM EDT 07/17/2021 8:07 AM EDT Basim Barr MD POINT OF CARE TEST O RDERABLES Performing Organization Address [facility] de Phone Number [facility] [place] [address] * (ABNORMAL) POCT Glucose (07/16/2021 9:35 PM EDT) Glucose, POC 224(H) 65 - 199 mg/dL [facility] Comment: Supplemental ranges: <140 mg/dL before meals <180 mg/dL all other times of the day Blood 07/16/2021 9:35 PM EDT 07/16/2021 9:35 PM EDT Basim Barr MD POINT OF CARE TEST O RDERABLES Performing Organization Address [facility] de Phone Number [facility] [place] [address] * POCT Glucose (07/16/2021 3:51 PM EDT) Glucose, POC 164 65 - 199 mg/dL [facility] Comment: Supplemental ranges: <140 mg/dL before meals <180 mg/dL all other times of the day Blood 07/16/2021 3:51 PM EDT 07/16/2021 3:51 PM EDT Basim Barr MD POINT OF CARE TEST O DANIEL [facility] [place] [address] * POCT Glucose (07/16/2021 12:00 PM EDT) Glucose, POC 147 65 - 199 mg/dL [facility] Comment: Supplemental ranges: <140 mg/dL before meals <180 mg/dL all other times of the day Blood 07/16/2021 12:0 0 PM EDT 07/16/2021 12:00 PM EDT Basim Barr MD POINT OF CARE TEST O DNAIEL [facility] [place] [address] * POCT Glucose (07/16/2021 7:51 AM EDT) Glucose, POC 150 65 - 199 mg/dL [facility] Comment: Supplemental ranges: <140 mg/dL before meals <180 mg/dL all other times of the day Blood 07/16/2021 7:51 AM EDT 07/16/2021 7:51 AM EDT Basim Barr MD POINT OF CARE TEST O NATHANERAWILLY [facility] [place] [address] * POCT Glucose (07/15/2021 8:59 PM EDT) Glucose, POC 197 65 - 199 mg/dL [facility] Comment: Supplemental ranges: <140 mg/dL before meals <180 mg/dL all other times of the day Blood 07/15/2021 8:59 PM EDT 07/15/2021 8:59 PM EDT Basim Barr MD POINT OF CARE TEST O DANIEL [facility] [place] [address] * POCT Glucose (07/15/2021 3:56 PM EDT) Glucose, POC 197 65 - 199 mg/dL [facility] Comment: Supplemental ranges: <140 mg/dL before meals <180 mg/dL all other times of the day Blood 07/15/2021 3:56 PM EDT 07/15/2021 3:56 PM EDT Basim Barr MD POINT OF CARE TEST O DANIEL [facility] [place] [address] * (ABNORMAL) POCT Glucose (07/15/2021 11:46 AM EDT) Glucose, POC 203(H) 65 - 199 mg/dL [facility] Comment: Supplemental ranges: <140 mg/dL before meals <180 mg/dL all other times of the day Blood 07/15/2021 11:4 6 AM EDT 07/15/2021 11:46 AM EDT Basim Barr MD POINT OF CARE TEST O DANIEL [facility] [place] [address] * POCT Glucose (07/15/2021 8:09 AM EDT) Glucose, POC 175 65 - 199 mg/dL [facility] Comment: Supplemental ranges: <140 mg/dL before meals <180 mg/dL all other times of the day Blood 07/15/2021 8:09 AM EDT 07/15/2021 8:09 AM EDT Basim Barr MD POINT OF CARE TEST O DANIEL [facility] [place] [address] * POCT Glucose (07/14/2021 8:43 PM EDT) Glucose, POC 185 65 - 199 mg/dL [facility] Comment: Supplemental ranges: <140 mg/dL before meals <180 mg/dL all other times of the day Blood 07/14/2021 8:43 PM EDT 07/14/2021 8:43 PM EDT Basim Barr MD POINT OF CARE TEST O DANIEL Performing Organization Address City/[facility]/ZIP Co de Phone Number [facility] [place] [address] * POCT Glucose (07/14/2021 3:57 PM EDT) Glucose, POC 114 65 - 199 mg/dL [facility] Comment: Supplemental ranges: <140 mg/dL before meals <180 mg/dL all other times of the day Blood 07/14/2021 3:57 PM EDT 07/14/2021 3:57 PM EDT Basim Barr MD POINT OF CARE TEST O DANIEL [facility] [place] [address] * POCT Glucose (07/14/2021 11:09 AM EDT) Pathologist [facility] Glucose, POC 159 65 - 199 mg/dL [facility] Comment: Supplemental ranges: <140 mg/dL before meals <180 mg/dL all other times of the day Blood 07/14/2021 11:0 9 AM EDT 07/14/2021 11:09 AM EDT Basim Barr MD POINT OF CARE TEST O RDERABLES Performing Organization Address [facility] Co de Phone Number [facility] [place] [address] * IR OR VASC Aniogram Image Storage Only (07/14/2021 10:41 AM EDT) Narrative [facility] 07/14/2021 10:41 AM EDT This exam is auto-finalizing. It's purpose is for storage only. Basim Barr MD IMG FILM LIBRARY ORD ERABLES Performing Organization Address [facility] de Phone Number [place], [place] * COVID-19 PCR (07/14/2021 10:00 AM EDT) [facility] SARS-CoV-2 RNA (Rapid) Not Detected Not Detected [facility] Comment: This result should be [...] using the Simplexa COVID-19 Direct Assay by ASI System Integration as authorized by the FDA issued Emergency [...] Department of Pathology and Laboratory Medicine at [facility], certified under the Clinical [...] fact sheets at the following FDA website: https://www.fda.gov/medical-devices/ekqmcvmfzcq-crldsjh-5396-cfuwj-58-najstygiv- use-a tasscqogwwfdw-ociiygx-wxccpve/xoxnj-zkwzoyjivge-gffd SARS-CoV-2 Source MUD MIXER OPERATOR Swab PA [facility] Nasopharyngeal Swab 07/15/19 10:00 AM EDT 07/14/2021 10:43 AM EDT Comment:Symptoms->Surveillan ce Narrative Resulting Agency Comment Spec In Lab Basim Barr MD MICROBIOLOGY - GENER AL ORDERABLES [facility] [place] [address] * POCT Glucose (07/14/2021 7:36 AM EDT) Glucose, POC 174 65 - 199 mg/dL [facility] Comment: Supplemental ranges: <140 mg/dL before meals <180 mg/dL all other times of the day Blood 07/14/2021 7:36 AM EDT 07/14/2021 7:36 AM EDT Basim Barr MD POINT OF CARE TEST O RDERABLES [facility] [place] [address] * Vitamin B12 (07/14/2021 7:16 AM EDT) Pathologist [facility] Vitamin B12 483 232 - 1,245 pg/mL [facility] Blood Venous Draw / Unknown 07/14/2021 7:16 AM EDT 07/14/2021 7:30 AM EDT Narrative Resulting Agency Comment Spec In Lab Sandra Murphy MD CHEMISTRY ORDERABL ES Performing Organization Address City/[facility]/ZIP Co de Phone Number [facility] [place] [address] * (ABNORMAL) Hemogram (07/14/2021 7:16 AM EDT) White Blood Cell 7.4 4.0 - 9.5 x10(3)/mc L [facility] Red Blood Cell 4.15(L) 4.58 - 5.54 x10(6)/mc L [facility] Hemoglobin 13.0(L) 13.7 - 16.5 g/dL [facility] Hematocrit 39.4(L) 40.5 - 48.5 % [facility] Mean Cell Volume 94.9(H) 82.9 - 93.1 fL [facility] Mean Cell Hemoglobin 31.3 27.5 - 32.1 pg [facility] Mean Cell Hemoglobin Concentration 33.0 32.0 - 35.7 g/dL [facility] Platelet 234 145 - 357 x10(3)/mc L [facility] RDW Standard Deviation 46.5(H) 36.0 - 45.0 fL [facility] RDW coefficient of variation 13.4 11.4 - 13.8 % [facility] Mean Platelet Volume 9.9 7.6 - 12.9 fL [facility] NRBC% auto 0.0 % [facility] NRBC Absolute 0.000 0.000 - 0.000 x10(3)/mc L [facility] Blood 07/14/2021 7:16 AM EDT 07/14/2021 7:20 AM EDT Narrative Resulting Agency Comment Spec In Lab Basim Barr MD HEMATOLOGY ORDERABLE S [facility] [place] [address] * (ABNORMAL) Basic Metabolic Panel (non-fasting) (07/14/2021 7:16 AM EDT) Glucose 184 65 - 199 mg/dL [facility] Comment:Diabetes: >=200 mg/d L plus symptoms Blood Urea Nitrogen 13 10 - 20 mg/dL [facility] Creatinine 0.71(L) 0.80 - 1.50 mg/dL [facility] Sodium 138 135 - 145 mmol/L [facility] Potassium 4.3 3.5 - 5.0 mmol/L [facility] Comment: Please note: ??Patients with WBC >100,000 may have falsely elevated Potassium levels. ??For accurate Potassium quantification in these patients send serum separator tube (gold top) for subsequent determinations. ??Contact the Clinical Chemistry Laboratory if there are any questions. Chloride 103 98 - 107 mmol/L [facility] Carbon Dioxide 22 22 - 31 mmol/L [facility] Anion Gap 13 5 - 15 mmol/L [facility] Calcium 9.0 8.5 - 10.5 mg/dL [facility] Est Glomerular Filtration Rate 93 >=60 mL/min/1. 73 m?? [facility] Comment: This patient? s estimated [...] Barr MD CHEMISTRY ORDERABLES Performing Organization Address City/[facility] Co de Phone Number [facility] [place] [address] * Prealbumin (07/14/2021 7:16 AM EDT) Prealbumin 23 20 - 40 mg/dL [facility] Comment: Prealbumin levels are generally lower in the pediatric population; adult concentrations are usually attained near puberty. Blood 07/14/2021 7:16 AM EDT 07/14/2021 7:20 AM EDT Narrative Resulting Agency Comment Spec In Lab Basim Barr MD CHEMISTRY ORDERABLES Performing Organization Address [facility]/ZIP Co de Phone Number [facility] [place] [address] * SCAN DOC: IMPLANTABLE DEVICES (07/14/2021 12:00 [...] Tonja Coe RN) 0902 (Given - Provider: Tonaj Coe RN) 0846 (Given - Provider: Inga Joel, AYE) aspirin EC tablet 81 mg 81 mg, Oral, DAILY, First dose on Sat07/14/21 at 1715, Until Discontinued, Routine 0820 (Given - Provider: Tonja Coe RN) 0902 (Given - Provider: Tonja Coe RN) 0843 (Given - Provider: Inga Joel RN) atorvastatin (Lipitor) tablet 80 mg 80 mg, Oral, EVERY EVENING, First dose on Sat07/14/21 at 1715, Until Discontinued, Routine 1718 (Given - Provider: Tojna Coe RN) 1602 (Given - Provider: Tonja Coe RN) carvediloL (Coreg) tablet 25 mg 25 mg, Oral, 2 TIMES DAILY WITH MEALS, First dose (after last modification) on Sat07/14/21 at 1500, Until Discontinued, May move up 5pm dose to 2pm on 07/14, STAT 0819 (Given - Provider: Tonja Coe RN)1718 (Given - Provider: Tonja Coe RN) 0905 (Given - Provider: Tonja Coe, AYE)1602 (Given - Provider: Tonja Coe, AYE) 0846 (Given - Provider: Inga Joel RN) [...] 0843 (Given - Provider: Inga Joel RN) insulin lispro (HumaLOG;Admelog) (100 unit/mL) subcutaneous [...] Tonja Coe RN)1719 (Given - Provider: Tonja Coe, AYE)2102 (Given - Provider: Honey Farias RN) 0905 (Not Given - Provider: Tonja Coe RN - Reason: Order parameters not met)1130 (Not Given - Provider: Tonja Coe RN - Reason: Order parameters not met)1602 (Given - Provider: Tonja Coe RN)2151 (Given - Provider: Kelsa L Rodolfo, RN) 0829 (Given - Provider: Inga Joel [...] CONTINUOUS, Starting on Sat07/14/21 at 2200, Until 07/16/21 at 0834, Titrate to SBP greater than [...] PRN, Starting on Sat07/14/21 at 1617, Until 07/17/21 at 1838, Nausea, Vomiting, If multiple antiemetics are ordered, use ondansetron first. PO Preferred. If patient unable to take PO, may give IV if ordered. May repeat times one in 45 minutes if ineffective. , Routine Or ondansetron (pf) (Zofran) (2 mg/mL) injection 4-8 mgJump to med 4-8 mg, Intravenous, EVERY 8 HOURS PRN, Starting on Sat07/14/21 at 1617, Until 07/17/21 at 1838, Nausea, Start with 4mg and if ineffective in 30 minutes, give an additional 4mg documented in this encounter Care Teams Soda Jerker Relationship Specialty Start Date End Date Alo Carey DO [address] [place] [address] [place] [phone] PCP - General Internal Medicine 08/31/20 07/03/23 documented as of this encounter
--- OUTSIDE RECORDS SUMMARY | 2024-03-12 10:58 | XMS_ITS | Encounter Summary ---
[place] [address] Care Team Providers Care Boilermaker Name Role Phone Alo Carey Primary Care Provider [phone] Encounter Details Date Type Department Care Team (Late st Contact Info) Description 07/18/2021 Telephone [place] [address] Milton Saldana MD Social History Tobacco Use Types Packs/Day Years [...] I offered [place] [facility] thepatient's brother stated that they are only a [address] from [facility] (and over 100 [place] [facility] so will proceed there first. Milton Saldana MD Vascular Surgery Resident documented in this encounter Plan of Treatment Upcoming Encounters Date Type Department Care Team (Late st Contact Info) Description 03/24/2024 9:00 AM EST TH Visit (TeleHealth) Radiation Oncology at [address] [phone] Ping Moore PA [facility] DR HEMATOLOGY [place] [address] 03/26/2024 9:30 AM EST Office Visit Hematology/Oncology at [address] [phone] Yessi Renee APRN [address] [place] [address] DR HEMATOLOGY AND ONCOLOGY [place], [place] [address] 03/26/2024 9:30 AM EST Infusion Hematology Oncology at [address] [phone] 04/09/2024 9:30 AM EST Office Visit Hematology/Oncology at [address] [phone] Cl Hess MD [facility] [place] [address] [address] HEMATOLOGY AND ONCOLOGY [place], [place] [address] 04/09/2024 10:00 AM EST Infusion Hematology Oncology at [address] [phone] 04/23/2024 9:30 AM EST Office Visit Hematology/Oncology at [address] [phone] Cl Hess MD [facility] [place] [address] [address] HEMATOLOGY AND ONCOLOGY [place], [place] [address] 04/23/2024 10:00 AM EST Infusion Hematology Oncology at [address] [phone] 05/18/2024 4:30 PM EDT TH Visit (TeleHealth) [place] [address] Malachi Rothman MD [facility] [place] [address] documented as of this encounter Visit Diagnoses Not on filedocumented in this encounter Care Teams Boilermaker Relationship Specialty Start Date End Date Alo Carey DO [address] [place] [address] [place] [address] PCP - General Internal Medicine 08/31/20 07/03/23 documented as of this encounter
--- OUTSIDE RECORDS SUMMARY | 2024-03-12 10:58 | XMS_ITS | Encounter Summary ---
[place] [address] Care Team Providers Care Nut Sheller Machine Operator Name Role Phone Alo Carey DO Primary Care Provider [phone] Reason for Visit * Reason Comments Injections Lupron * Treatment/Therapy Plan Authorization (Routine) - Pending Review Specialty Diagnoses / Procedures Referred By Marques livingston Referred To Contact Diagnoses Malignant neoplasm of prostate Bigg Peters MD [address] [place] [address] [place] [address] Referral ID Status Reason Start Date Expiration Date V isits Requested Visits Authorized [id number] Pending Review 04/26/2021 04/26/2022 99 99 Encounter Details Date Type Department Care Team (Late st Contact Info) Description 06/28/2021 3:30 PM EDT Infusion Hematology Oncology at [address] [phone] Malignant neoplasm of prostate Social [...] TH Visit (TeleHealth) Radiation Oncology at [address] [phone] Ping Moore PA [facility] DR HEMATOLOGY [place] [address] 03/26/2024 9:30 AM EST Office Visit Hematology/Oncology at [address] [phone] Yessi Renee [address] HEMATOLOGY [place] [address] 03/26/2024 9:30 AM EST Infusion Hematology Oncology at [address] [phone] 04/09/2024 9:30 AM EST Office Visit Hematology/Oncology at [address] [phone] Cl Hess MD [facility] [place] [address] Yessi Renee RENEWABLE ENERGY DIVISION MANAGER [address] [place] [address] DR HEMATOLOGY [place] [address] 04/09/2024 10:00 AM EST Infusion Hematology Oncology at [address] [phone] 04/23/2024 9:30 AM EST Office Visit Hematology/Oncology at [address] [phone] Cl Hess MD [facility] [place] [place] [address] [address] HEMATOLOGY AND ONCOLOGY [place], [place] [address] 04/23/2024 10:00 AM EST Infusion Hematology Oncology at [address] [phone] 05/18/2024 4:30 PM EDT TH Visit (TeleHealth) [place] [address] Malachi Rothman MD [facility] [place] [address] documented as of this encounter Visit Diagnoses [...] Gluteal documented in this encounter Care Teams Nut Sheller Machine Operator Relationship Specialty Start Date End Date Alo Carey DO [address] [place] [address] [place] [address] PCP - General Internal Medicine 08/31/20 07/03/23 documented as of this encounter
--- OUTSIDE RECORDS SUMMARY | 2024-03-12 10:58 | XMS_ITS | Encounter Summary ---
[place] [address] Care Team Providers Care Ophthalmic Surgeon Name Role Phone Alo Carey DO Primary Care Provider [phone] Encounter Details Date Type Department Care Team (Late st Contact Info) Description 06/28/2021 Telephone Radiation Oncology at [address] [phone] Juli Tripathi RN Social History [...] PM EDT Radiation Oncology Nurse Telephone Note [place], [place] Telephone call to PCP, Dr Carey's [...] Katy called back and stated that Dr Carey authorized that he hold Plavix 48 hr [...] TH Visit (TeleHealth) Radiation Oncology at [address] [phone] Ping Moore PA [facility] DR [place] [address] 03/26/2024 9:30 AM EST Office Visit Hematology/Oncology at [address] [phone] Yessi Renee APRN [address] [place] [address] DR HEMATOLOGY AND ONCOLOGY [place], [place] [address] 03/26/2024 9:30 AM EST Infusion Hematology Oncology at [address] [phone] 04/09/2024 9:30 AM EST Office Visit Hematology/Oncology at [address] [phone] Cl Hess MD [facility] [place] [address] [address] [place]ATOLOGY [place] [address] 04/09/2024 10:00 AM EST Infusion Hematology Oncology at [address] [phone] 04/23/2024 9:30 AM EST Office Visit Hematology/Oncology at [address] [phone] Cl Hess MD [facility] [place] [address] [address] [place]ATOLOGY [place] [address] 04/23/2024 10:00 AM EST Infusion Hematology Oncology at [address] [phone] 05/18/2024 4:30 PM EDT TH Visit (TeleHealth) [place] [address] Malachi Rothman MD [facility] [place] [address] documented as of this encounter Visit Diagnoses Not on filedocumented in this encounter Care Teams Ophthalmic Surgeon Relationship Specialty Start Date End Date Alo Carey DO [address] [place] [address] [place] [address] PCP - General Internal Medicine 08/31/20 07/03/23 documented as of this encounter
--- OUTSIDE RECORDS SUMMARY | 2024-03-12 10:58 | XMS_ITS | Encounter Summary ---
[place] [address] Care Team Providers Care Membership Secretary Name Role Phone YungAlo santiago Primary Care Provider [phone] Encounter Details Date Type Department Care Team (Late st Contact Info) Description 07/11/2021 Telephone [place] [phone] Marva Moura, RN Social History Tobacco Use [...] the original note were not included. This story writer accessed voice message from patient at 3:59 who states he's at the covid tent for his pre-op test and there is no one there. He drove down from [place], [place]. Chart indicates arrangements for testing was approved. This story writer called the Covid test line and was told the tent closes at 2:30, and that email is the best way to reach Rose Mary Veras. email message sent to Rose Mary Veras, and Dr. Barr. This story writer phoned patient who states he is already driving back home. Patient states this has happened before and he's been able to get the test done at [facility] in [place]. email message sent to Dr. Barr and Rose Mary Veras. documented in this encounter Plan of Treatment Upcoming Encounters Date Type Department Care Team (Late st Contact Info) Description 03/24/2024 9:00 AM EST TH Visit (TeleHealth) Radiation Oncology at [address] [phone] Ping Moore PA [facility] H[place]ATOLOGY [place] [address] 03/26/2024 9:30 AM EST Office Visit Hematology/Oncology at [address] [phone] [address] HEMATOLOGY AND ONCOLOGY [place], [place] [phone] 03/26/2024 9:30 AM EST Infusion Hematology Oncology at [address] [phone] 04/09/2024 9:30 AM EST Office Visit Hematology/Oncology at [address] [phone] Cl Hess MD [facility] [place] [address] Yessi Renee [address] [place] [address] 04/09/2024 10:00 AM EST Infusion Hematology Oncology at [address] [phone] 04/23/2024 9:30 AM EST Office Visit Hematology/Oncology at [address] [phone] Cl Hess MD [facility] [place] [address] [address] [place] [address] 04/23/2024 10:00 AM EST Infusion Hematology Oncology at [address] [phone] 05/18/2024 4:30 PM EDT TH Visit (TeleHealth) [place] [address] Malachi Rothman MD [facility] [place] [address] documented as of this encounter Visit Diagnoses Not on filedocumented in this encounter Care Teams Membership Secretary Relationship Specialty Start Date End Date Alo Carey DO [address] [place] [address] [place] [address] PCP - General Internal Medicine 08/31/20 07/03/23 documented as of this encounter
--- OUTSIDE RECORDS SUMMARY | 2024-03-12 10:58 | XMS_ITS | Encounter Summary ---
Author Organization [facility] [place] [address] Care Team Providers Care Horticulture Worker Name Role Phone Alo Carey DO Primary Care Provider [phone] Encounter Details Date Type Department Care Team (Late st Contact Info) Description 07/18/2021 12:00 PM EDT Ancillary Procedure Radiology Library at [facility] [place] [address] Alo Carey DO [address] [place] [phone] Social History Tobacco Use Types Packs/Day Years [...] TH Visit (TeleHealth) Radiation Oncology at [address] [phone] Ping Moore PA [facility] DR HEMATOLOGY [place] [address] 03/26/2024 9:30 AM EST Office Visit Hematology/Oncology at [address] [phone] [address] HEMATOLOGY AND ONCOLOGY [place], [place] [phone] 03/26/2024 9:30 AM EST Infusion Hematology Oncology at [address] [phone] 04/09/2024 9:30 AM EST Office Visit Hematology/Oncology at [address] [phone] Cl Hess MD [facility] [place] [address] [address] HEMATOLOGY AND ONCOLOGY [place], [place] [phone] 04/09/2024 10:00 AM EST Infusion Hematology Oncology at [address] [phone] 04/23/2024 9:30 AM EST Office Visit Hematology/Oncology at [address] [phone] Cl Hess MD [facility] [place] [address] Yess[address] Renee [address] HEMATOLOGY AND ONCOLOGY [place], [place] [phone] 04/23/2024 10:00 AM EST Infusion Hematology Oncology at [address] [phone] 05/18/2024 4:30 PM EDT TH Visit (TeleHealth) [place] [address] Malachi Rothman MD [facility] [place] [address] documented as of this encounter Procedures Procedure Name Priority Date/Time Associated Diagnosis Comments FILM LIBRARY STORAGE ONLY CT HEAD Routine 07/18/2021 11:56 AM EDT documented in this encounter Results * Film Library- Storage Only CT Head (07/18/2021 11:56 AM EDT) Narrative [facility] - 07/18/2021 11:56 AM EDT This exam is auto-finalizing. It's purpose is for storage only. Alo Carey DO [facility] FILM LIBRARY ORD ERABLES [place], [place] documented in this encounter Visit Diagnoses Not on filedocumented in this encounter Care Teams Horticulture Worker Relationship Specialty Start Date End Date Alo Carey DO [address] [place] [address] [place] [address] PCP - General Internal Medicine 08/31/20 07/03/23 documented as of this encounter
--- OUTSIDE RECORDS SUMMARY | 2024-03-12 10:58 | XMS_ITS | Encounter Summary ---
[place] [address] Care Team Providers Care Advertising Assistant Name Role Phone YungAlo santiago Primary Care Provider [phone] Encounter Details Date Type Department Care Team (Late st Contact Info) Description 07/06/2021 [place]phone [place] [phone] Floridalma Simmons Social History Tobacco Use Types [...] ASK: TRAVEL ???Have you travelled outside of [place] ([place], [place], [place], [place], [place], [place]) in the past 14 days??? 2. ASK: [...] Transfer patient to the Covid-19 Hotline Number ([phone]) for further instructions. If 'No' to all of the questions above Is this the first test for Covid 19 If no, please list date of previous test, result, and type of test (Molecular, Antigen, Antibody orunknown): Resides in Nursing/residential or other residential setting No Employee or [...] TH Visit (TeleHealth) Radiation Oncology at [address] [phone] Ping Moore PA [facility] HEMATOLOGY [place] [address] 03/26/2024 9:30 AM EST Office Visit Hematology/Oncology at [address] [phone] [address] HEMATOLOGY AND ONCOLOGY [place], [place] [address] [phone] 03/26/2024 9:30 AM EST Infusion Hematology Oncology at [address] [phone] 04/09/2024 9:30 AM EST Office Visit Hematology/Oncology at [address] [phone] Cl Hess MD [facility] [place] [address] [address] HEMATOLOGY AND ONCOLOGY [place], [place] [address] [phone] 04/09/2024 10:00 AM EST Infusion Hematology Oncology at [address] [phone] 04/23/2024 9:30 AM EST Office Visit Hematology/Oncology at [address] [phone] Cl Hess MD [facility] [place] [address] [address] HEMATOLOGY AND ONCOLOGY [place], [place] [address] 04/23/2024 10:00 AM EST Infusion Hematology Oncology at [address] [phone] 05/18/2024 4:30 PM EDT TH Visit (TeleHealth) [place] [address] Malachi Rothman MD [facility] [address] documented as of this encounter Visit Diagnoses Not on filedocumented in this encounter Care Teams Advertising Assistant Relationship Specialty Start Date End Date Alo Carey DO [address] [place] [address] [place] [address] PCP - General Internal Medicine 08/31/20 07/03/23 documented as of this encounter
--- OUTSIDE RECORDS SUMMARY | 2024-03-12 10:58 | XMS_ITS | Encounter Summary ---
[place] [address] Care Team Providers Care Uranium Processing Supervisor Name Role Phone YungAlo santiago Lon RUTHERFORD Primary Care Provider [phone] Reason for Visit * Auth/Cert Specialty Diagnoses [...] Expiration Date Visits Re quested Visits Authorized [id number] 1 1 Encounter Details Date Type Department Care Team (Latest Contact Info) Description 07/14/2021 8:30 AM EDT - 07/14/2021 11:59 PM EDT Hospital Encounter [place] [phone] Discharge Disposition: Home Social History Tobacco Use [...] TH Visit (TeleHealth) Radiation Oncology at [address] [phone] Ping Moore PA [facility] HEMATOLOGY [place] [address] 03/26/2024 9:30 AM EST Office Visit Hematology/Oncology at [address] [phone] [address] HEMATOLOGY AND ONCOLOGY [place], [place] [address] 03/26/2024 9:30 AM EST Infusion Hematology Oncology at [address] [phone] 04/09/2024 9:30 AM EST Office Visit Hematology/Oncology at [address] [phone] Cl Hess MD [facility] [place] [address] [address] [place] [address] 04/09/2024 10:00 AM EST Infusion Hematology Oncology at [address] [phone] 04/23/2024 9:30 AM EST Office Visit Hematology/Oncology at [address] [phone] Cl Hess MD [facility] [place] [address] [address] [place] [address] 04/23/2024 10:00 AM EST Infusion Hematology Oncology at [address] [phone] 05/18/2024 4:30 PM EDT TH Visit (TeleHealth) [place] [address] Malachi Rothman MD [facility] [place] [address] documented as of this encounter Visit Diagnoses Not on filedocumented in this encounter Care Teams Uranium Processing Supervisor Relationship Specialty Start Date End Date Alo Carey DO [address] [place] [address] [place] [address] PCP - General Internal Medicine 08/31/20 07/03/23 documented as of this encounter
--- OUTSIDE RECORDS SUMMARY | 2024-03-12 10:58 | XMS_ITS | Encounter Summary ---
[place] [address] Care Team Providers Care Production Machinist Name Role Phone YungAlo santiago Lon RUTHERFORD Primary Care Provider [phone] Reason for Visit * Auth/Cert Specialty Diagnoses [...] Expiration Date Visits Re quested Visits Authorized [id number] 1 1 Encounter Details Date Type Department Care Team (Late st Contact Info) Description 07/14/2021 8:30 AM EDT - 07/14/2021 12:00 PM EDT Surgery [place] [address] Basim Barr MD [facility] [place] [address] @TRANSCATH INTRAVASCULAR STENT,CAROTID,PERC,W\EM ELHAM PROT. (WRVU 45.26) Social History Tobacco Use Types Packs/Day Years [...] R TCAR performed with predilation to 4.5mm. [id number] Enroute stent placed and post- dilated to [...] PM STJ RAD/ONC, TREATMENT Radiation Oncology at [facility] Arrive at: [facility] door at end of [place] [address] 07/27/2021 2:45 PM STJ RAD/ONC, TREATMENT Radiation Oncology at [facility] Arrive at: [facility] door at end of [place] [address] 07/28/2021 12:15 PM STJ RAD/ONC, TREATMENT Radiation Oncology at [facility] Arrive at: [facility] door at end of [place] [phone] 08/01/2021 12:45 PM STJ RAD/ONC, TREATMENT Radiation Oncology at [facility] Arrive at: [facility] door at end of [address] [phone] 08/02/2021 12:45 PM STJ RAD/ONC, TREATMENT Radiation Oncology at [facility] Arrive at: [facility] door at end of [place] [phone] 08/03/2021 12:45 PM STJ RAD/ONC, TREATMENT Radiation Oncology at [facility] Arrive at: [facility] door at end of hallway [phone] 08/04/2021 1:00 PM STJ RAD/ONC, TREATMENT Radiation Oncology at [facility] Arrive at: [facility] door at end of hallway [phone] 08/07/2021 12:45 PM STJ RAD/ONC, TREATMENT Radiation Oncology at [facility] Arrive at: [facility] door at end of hallway [phone] 08/08/2021 12:45 PM STJ RAD/ONC, TREATMENT Radiation Oncology at [facility] Arrive at: [facility] door at end of hallway [phone] 08/09/2021 12:45 PM STJ RAD/ONC, TREATMENT Radiation Oncology at [facility] Arrive at: [facility] door at end of hallway [phone] 08/10/2021 12:45 PM STJ RAD/ONC, TREATMENT Radiation Oncology at [facility] Arrive at: [facility] door at end of hallway [phone] 08/11/2021 1:00 PM STJ RAD/ONC, TREATMENT Radiation Oncology at [facility] Arrive at: [facility] door at end of hallway [phone] 08/14/2021 12:45 PM STJ RAD/ONC, TREATMENT Radiation Oncology at [facility] Arrive at: [facility] door at end of hallway [phone] 08/15/2021 12:45 PM STJ RAD/ONC, TREATMENT Radiation Oncology at [facility] Arrive at: [facility] door at end of hallway [phone] 08/16/2021 12:45 PM STJ RAD/ONC, TREATMENT Radiation Oncology at [facility] Arrive at: [facility] door at end of hallway [phone] 08/17/2021 12:45 PM STJ RAD/ONC, TREATMENT Radiation Oncology at [facility] Arrive at: [facility] door at end of hallway [phone] 08/18/2021 12:45 PM STJ RAD/ONC, TREATMENT Radiation Oncology at [facility] Arrive at: [facility] door at end of hallway [phone] 08/21/2021 12:45 PM STJ RAD/ONC, TREATMENT Radiation Oncology at [facility] Arrive at: [facility] door at end of hallway [phone] 08/22/2021 12:45 PM STJ RAD/ONC, TREATMENT Radiation Oncology at [facility] Arrive at: [facility] door at end of hallway [phone] 08/23/2021 12:45 PM STJ RAD/ONC, TREATMENT Radiation Oncology at [facility] at: [facility] door at end of hallway [phone] 08/24/2021 12:45 PM STJ RAD/ONC, TREATMENT Radiation Oncology at [facility] Arrive at: [facility] door at end of hallway [phone] 08/25/2021 12:45 PM STJ RAD/ONC, TREATMENT Radiation Oncology at [facility] Ar[facility] at: [facility] door at end of hallway [phone] 08/28/2021 12:45 PM STJ RAD/ONC, TREATMENT Radiation Oncology at [facility] Ar[facility] at: [facility] door at end of hallway [phone] 08/29/2021 12:45 PM STJ RAD/ONC, TREATMENT Radiation Oncology at [facility] Arrive at: [facility] door at end of hallway [phone] 08/30/2021 12:45 PM STJ RAD/ONC, TREATMENT Radiation Oncology at [facility] Arrive at: [facility] door at end of hallway [phone] 08/31/2021 12:45 PM STJ RAD/ONC, TREATMENT Radiation Oncology at [facility] Arrive at: [facility] door at end of hallway [phone] 09/01/2021 12:45 PM STJ RAD/ONC, TREATMENT Radiation Oncology at [facility] Ar[facility] at: [facility] door at end of hallway [phone] 09/05/2021 12:45 PM STJ RAD/ONC, TREATMENT Radiation Oncology at [facility] Arrive at: [facility] door at end of hallway [phone] Future Orders Complete By Expires Carotid Duplex, Bilateral [VAS1 Custom] 08/16/2021 07/16/2022 Process Instructions: There is no in-house vascular computer lab aide available on weeknights (5pm-8am), weekends, or holidays. IF THIS IS A REQUEST FOR AN EMERGENT STUDY DURING THOSE HOURS, please have the senior provider responsible for the patient page the Vascular Surgery Fellow/Senior Resident chyron operator to discuss options. Scheduling Instructions: Questions: Indication for study/signs & symptoms: s/p R TCAR Question to be answered: patency Preferred location?: [facility] Carotid Duplex, Bilateral [VAS1 Custom] 01/16/2022 07/16/2022 Process Instructions: There is no in-house vascular computer lab aide available on weeknights (5pm-8am), weekends, or holidays. IF THIS IS A REQUEST FOR AN EMERGENT STUDY DURING THOSE HOURS, please have the senior provider responsible for the patient page the Vascular Surgery Fellow/Senior Resident chyron operator to discuss options. Scheduling Instructions: Questions: Indication for study/signs & symptoms: s/p R TCAR Question to be answered: patency Preferred location?: [facility] XR Neck Soft Tissue (Generic) [21883 Custom] 01/16/2022 07/16/2022 Process Instructions: Scheduling Instructions: Questions: Where will study be performed?: [facility] Radiology Portable exam?: Reason for exam and clinical history: s/p R TCAR, assess for stent fracture Clinical information / fernando questions for radiologist: Stat read required?: Date of injury if applicable: Requested Time: Anticoagulation & Antiplatelet: Anticoagulation: not indicated Antiplatelet: Agent: ASA, Plavix Indication:ASCVD Intended Duration: manager terminal For questions regarding these medications, please contact: [...] vascular procedure at [facility] in [place]: shaking Has tolerated MRI [...] or questions please call our office at [phone] For issues on weeknights after 5pm and weekends please call [phone] and ask for the Vascular Fellow chyron operator. documented in this encounter Discharge Instructions * [...] or questions please call our office at [phone] For issues on weeknights after 5pm and weekends please call [phone] and ask for the Vascular Fellow chyron operator. documented in this encounter Medications at Time [...] PO hydration Anticoagulation: N/A Antiplatelet: ASA, plavix, snf Lexi Walker MD 07/16/2021 Pager: [phone] * Honey Farias RN - 07/16/2021 5:39 [...] Speech normal. Extremities: wwp Labs: Recent Labs 07/14/21715 WBC 7.4 HGB 13.0* HCT 39.4* PLATELET 234 Recent Labs 07/14/21715 NA 138 K 4.3 CL 103 CO2 [...] to void Anticoagulation: N/A Antiplatelet: ASA, plavix, snf Lexi Walker MD 07/15/2021 Pager: [phone] * Honey Farias RN - 07/15/2021 3:10 [...] strength x4 extremities. R CEA incision is COFFERDAM CONSTRUCTION SUPERVISOR , dermabonded. R groin incision dressing remains clean, dry and intact. +doppler signals on bilateral pedal pulses. 2037~ Patient with large amt of emesis. 2 assist with partial bath, dressing and linen change. PRN ZOfran 4mg given IV. 4W Interior Plant Caretaker at bedside. MD [place] was made aware and came to bedside. Patient to be transferred to higher level of care for BP control with Nicardipine gtt. 2110~ Hydralazine 20mg given for BP 165/75 2132~ BP 133/66, HR91 2305~ Nicardipine gtt started at 5mg/hr for BP 158/81 by 4W RN Interior Plant Caretaker, to titrate accordingly. MD [place] was paged and verified if the witt should still be removed at 12midnight considering that patient will be moved to PCU, awaiting call back for close monitoring. 253~ report given to COAL UNLOADERAYE Méndez. Patient was transferred to PCU 428 [...] pain with oxycodone and tylenol for headache. 1361-8769: Patient ok 'd to go to floor, BP 140's, report called to 4 west, finger stick 114. * Floridalma Davis RN - 07/14/2021 11:54 AM EDT 1145- RN Break Coverage, Labetalol & Hydralazine given for [place] pressures in 180's * Taylor Rivera RN [...] ??? Colon adenocarcinoma 2009 recieved chemo in [place] ??? Coronary artery disease ??? Coronary artery [...] performed by Cayetano Engle MD at [facility] MAIN OR ??? PRO TOTAL HIP ARTHROPLASTY Left 10/10/2020 TOTAL HIP ARTHROPLASTY - POSTERIOR (WRVU 20.72) performed by Ismael Wu MD at [facility] MAIN OR Functional Status/Social Hx: Lives [...] to proceed. Charleen Madera Vascular Surgery Pager #[phone] documented in this encounter Procedure Notes * Jared Melvin MD - 07/14/2021 10:56 AM EDT NEURODIAGNOSTIC LABORATORY [facility] INTRAOPERATIVE MONITORING REPORT Name: Tha Sadler : 1950 Date of Surgery: 07/14/2021 Surgeon(s): Basim Barr MD; Wojciech Madera MD Surgical Procedure: right trans-carotid arterial revascularization (TCAR) Monitoring Procedure: Intraoperative scalp EEG monitoring and bilateral median nerve somatosensory evoked potentials (SSEPs). CPT Codes: 39898 (EEG), 48122 (upper SSEP bilateral), 92876 (IOM, 5 units), 86206 (IOM, 1 unit). Intraoperative neurophysiologic monitoring was [...] COVID test: Lab Results Component Value Date [id number] Not Detected 07/14/2021 Present on Admission: ??? [...] care provider on file: Alo Carey DO [phone] Pharmacy: [id number] - [place], [place] - [address] [facility] [address] [facility] [address] [facility] [id number] Advance Care Planning: Attempt Cardiopulmonary Resuscitation - Inpatient <no information> -Advanced Directive: No, declines Current Functional Ability: Assistive Equipment and Assistive Person Functional Status Prior to Admission: Assistive Equipment Home Environment: Others in the home: sibling(s). Current Living Arrangements: home/apartment/condo. Accessibility Concerns:no concerns. Current DME: walker - rolling [address] [facility] [address] Social & Family Supports: All names listed below confirmed with patient as current and correct Extended Emergency Contact Information Primary Emergency Contact: AMY ROPER Address: [address] [place] [address] Mobile Relation: Significant Other Secondary Emergency Contact: SADLERWANDA Mobile Relation: Sibling Current Care Provided by: [...] via car when medically ready. Registered Nurse Channel Turner / Branch Service Associate will continue to follow patient???s progress and remain available if situation changes for coordination of care, psychosocial support and/or discharge planning. Office of Care Management Gissel SANTOS RN Phone: [phone] Pager: [phone] * Plan of Care - Charlotte Sun [...] Diet advanced * Op Note - Wojciech Mdaera MD - 07/14/2021 11:16 AM EDT [facility] Operative Note Patient Name: Tha Sadler : [id number] MR#: [id number] Case Date: 07/14/2021 Surgeon: Surgeon(s) and Role: [...] imaging. R TCAR performed with predilation to 4.5mm.[id number] Enroute stent placed and post-dilated to 5mm. [...] was exchanged for the Enroute Neuroprotection System (DISTRICT SALES LEADER) arterial sheath. After confirming appropriate position, this [...] a 4.5x30mm angioplasty balloon. The Enroute stent ([id number]) was then deployed. Post-dilation was performed with [...] Implant Name Type Inv. Item Serial No. Fundraising Sale Representative Lot No. LRB No. Used Action SYSTEM STENT ENROUTE [id number] RX NIT ([id number]) (AUTOREQ) - [id number] IMPLANTS SYSTEM STENT ENROUTE [id number] RX NIT ([id number]) (AutoReq) [facility] [place] [id number] Right 1 Implanted Associated attestation - Basim [...] TH Visit (TeleHealth) Radiation Oncology at [address] [phone] Ping Moore PA [facility] [place] [address] 03/26/2024 9:30 AM EST Office Visit Hematology/Oncology at [address] [phone] [address] HEMATOLOGY AND ONCOLOGY [place], [place] [address] 03/26/2024 9:30 AM EST Infusion Hematology Oncology at [address] [phone] 04/09/2024 9:30 AM EST Office Visit Hematology/Oncology at [address] [phone] lC Hess MD [facility] [place] [address] [place] [address] 04/09/2024 10:00 AM EST Infusion Hematology Oncology at [address] [phone] 04/23/2024 9:30 AM EST Office Visit Hematology/Oncology at [address] [phone] Cl eHss MD [facility] [place] [address] [address] HEMATOLOGY AND ONCOLOGY [place], [place] [address] 04/23/2024 10:00 AM EST Infusion Hematology Oncology at [address] [phone] 05/18/2024 4:30 PM EDT TH Visit (TeleHealth) [place] [address] Malachi Rothman MD [facility] [place] [address] documented as of this encounter Procedures Procedure [...] Exploration Not Followed By Surg Neck Artery ([id number]) 07/14/2021 8:42 AM EDT Stenosis of carotid artery, unspecified laterality Pre-op testing Place Transcatheter Stent, Cca W Embolic Ect ([id number]) 07/14/2021 8:42 AM EDT Stenosis of carotid [...] Text Report Department: Vascular Surgery Lab Patient: [id number] (THA SADLER) CPT: 27852 Referring Physician: AL HUERTA ?? Phone: Indications: [...] Glucose, POC 151 65 - 199 mg/dL [facility] Comment: Supplemental ranges: <140 mg/dL before meals <180 mg/dL all other times of the day Blood 07/17/2021 8:07 AM EDT 07/17/2021 8:07 AM EDT Basim Barr MD POINT OF CARE TEST O RDERAWILLY Performing Organization Address City/[facility]/ZIP Co de Phone Number [facility] [place] [address] * (ABNORMAL) POCT Glucose (07/16/2021 9:35 PM EDT) Glucose, POC 224(H) 65 - 199 mg/dL [facility] Comment: Supplemental ranges: <140 mg/dL before meals <180 mg/dL all other times of the day Blood 07/16/2021 9:35 PM EDT 07/16/2021 9:35 PM EDT Basim Barr MD POINT OF CARE TEST O DANIEL Performing Organization Address [facility]/ZIP Co de Phone Number [facility] [place] [address] * POCT Glucose (07/16/2021 3:51 PM EDT) Glucose, POC 164 65 - 199 mg/dL [facility] Comment: Supplemental ranges: <140 mg/dL before meals <180 mg/dL all other times of the day Blood 07/16/2021 3:51 PM EDT 07/16/2021 3:51 PM EDT Basim Barr MD POINT OF CARE TEST O RDERAWILLY [facility] [place] [address] * POCT Glucose (07/16/2021 12:00 PM EDT) Glucose, POC 147 65 - 199 mg/dL [facility] Comment: Supplemental ranges: <140 mg/dL before meals <180 mg/dL all other times of the day Blood 07/16/2021 12:0 0 PM EDT 07/16/2021 12:00 PM EDT Basim Barr MD POINT OF CARE TEST O DANIEL [facility] [place] [address] * POCT Glucose (07/16/2021 7:51 AM EDT) Glucose, POC 150 65 - 199 mg/dL [facility] Comment: Supplemental ranges: <140 mg/dL before meals <180 mg/dL all other times of the day Blood 07/16/2021 7:51 AM EDT 07/16/2021 7:51 AM EDT Basim Barr MD POINT OF CARE TEST O DANIEL [facility] [place] [address] * POCT Glucose (07/15/2021 8:59 PM EDT) Glucose, POC 197 65 - 199 mg/dL [facility] Comment: Supplemental ranges: <140 mg/dL before meals <180 mg/dL all other times of the day Blood 07/15/2021 8:59 PM EDT 07/15/2021 8:59 PM EDT Basim Barr MD POINT OF CARE TEST O DANIEL [facility] [place] [address] * POCT Glucose (07/15/2021 3:56 PM EDT) Glucose, POC 197 65 - 199 mg/dL [facility] Comment: Supplemental ranges: <140 mg/dL before meals <180 mg/dL all other times of the day Blood 07/15/2021 3:56 PM EDT 07/15/2021 3:56 PM EDT Basim Barr MD POINT OF CARE TEST O DANIEL Performing Organization Address City/[facility]/ZIP Co de Phone Number [facility] [place] [address] * (ABNORMAL) POCT Glucose (07/15/2021 11:46 AM EDT) Glucose, POC 203(H) 65 - 199 mg/dL [facility] Comment: Supplemental ranges: <140 mg/dL before meals <180 mg/dL all other times of the day Blood 07/15/2021 11:4 6 AM EDT 07/15/2021 11:46 AM EDT Basim Barr MD POINT OF CARE TEST O DANIEL Performing Organization Address [facility] Co de Phone Number [facility] [place] [address] * POCT Glucose (07/15/2021 8:09 AM EDT) Glucose, POC 175 65 - 199 mg/dL [facility] Comment: Supplemental ranges: <140 mg/dL before meals <180 mg/dL all other times of the day Blood 07/15/2021 8:09 AM EDT 07/15/2021 8:09 AM EDT Basim Barr MD POINT OF CARE TEST O DANIEL Performing Organization Address City/[facility]/ZIP Co de Phone Number [facility] [place] [address] * POCT Glucose (07/14/2021 8:43 PM EDT) Glucose, POC 185 65 - 199 mg/dL [facility] Comment: Supplemental ranges: <140 mg/dL before meals <180 mg/dL all other times of the day Blood 07/14/2021 8:43 PM EDT 07/14/2021 8:43 PM EDT Basim Barr MD POINT OF CARE TEST O DANIEL [facility] [place] [address] * POCT Glucose (07/14/2021 3:57 PM EDT) Glucose, POC 114 65 - 199 mg/dL [facility] Comment: Supplemental ranges: <140 mg/dL before meals <180 mg/dL all other times of the day Blood 07/14/2021 3:57 PM EDT 07/14/2021 3:57 PM EDT Basim Barr MD POINT OF CARE TEST O DANIEL Performing Organization Address City/[facility]/ZIP Co de Phone Number [facility] [place] [address] * POCT Glucose (07/14/2021 11:09 AM EDT) Glucose, POC 159 65 - 199 mg/dL [facility] Comment: Supplemental ranges: <140 mg/dL before meals <180 mg/dL all other times of the day Blood 07/14/2021 11:0 9 AM EDT 07/14/2021 11:09 AM EDT Basim Barr MD POINT OF CARE TEST O DANIEL [facility] [place] [address] * IR OR VASC Aniogram Image Storage Only (07/14/2021 10:41 AM EDT) Narrative VJ FALL - 07/14/2021 10:41 AM EDT This exam is auto-finalizing. It's purpose is for storage only. Basim Barr MD IM FILM LIBRARY ORD ERABLES JUAN ANTONIO Love * COVID-19 PCR (07/14/2021 10:00 AM EDT) SARS-CoV-2 RNA (Rapid) Not Detected Not Detected [facility] Comment: This result should be [...] using the Simplexa COVID-19 Direct Assay by [employer] as authorized by the FDA issued Emergency [...] Department of Pathology and Laboratory Medicine at [facility], certified under the Clinical Laboratory [...] fact sheets at the following FDA website: https://www.fda.gov/medical-devices/vwstcmfnfsr-psackhi-0930-mpsfo-00-btnzqhaam- use-a todogovdacvnc-rnndgax-jdsbbso/jumla-qupntcdbyuh-pbsx SARS-CoV-2 Source GOLDBEATER Swab MA [facility] Nasopharyngeal Swab 07/15/19 10:00 AM EDT 07/14/2021 10:43 AM EDT Comment:Symptoms->Surveillan ce Narrative Resulting Agency Comment Spec In Lab Basim Barr MD MICROBIOLOGY - GENER AL ORDERABLES Performing Organization Address City/[facility]/ZIP Co de Phone Number [facility] [place] [address] * POCT Glucose (07/14/2021 7:36 AM EDT) Pathologist [facility] Glucose, POC 174 65 - 199 mg/dL [facility] Comment: Supplemental ranges: <140 mg/dL before meals <180 mg/dL all other times of the day Blood 07/14/2021 7:36 AM EDT 07/14/2021 7:36 AM EDT Basim Barr MD POINT OF CARE TEST O RDERABLES [facility] [place] [address] * Vitamin B12 (07/14/2021 7:16 AM EDT) Vitamin B12 483 232 - 1,245 pg/mL [facility] Blood Venous Draw / Unknown 07/14/2021 7:16 AM EDT 07/14/2021 7:30 AM EDT Narrative Resulting Agency Comment Spec In Lab Sandra Murphy MD CHEMISTRY ORDERABL ES [facility] [place] [address] * (ABNORMAL) Hemogram (07/14/2021 7:16 AM EDT) White Blood Cell 7.4 4.0 - 9.5 x10(3)/mc L [facility] Red Blood Cell 4.15(L) 4.58 - 5.54 x10(6)/mc L [facility] Hemoglobin 13.0(L) 13.7 - 16.5 g/dL [facility] Hematocrit 39.4(L) 40.5 - 48.5 % [facility] Mean Cell Volume 94.9(H) 82.9 - 93.1 fL [facility] Mean Cell Hemoglobin 31.3 27.5 - 32.1 pg [facility] Mean Cell Hemoglobin Concentration 33.0 32.0 - 35.7 g/dL [facility] Platelet 234 145 - 357 x10(3)/mc L [facility] RDW Standard Deviation 46.5(H) 36.0 - 45.0 [facility] RDW coefficient of variation 13.4 11.4 - 13.8 % [facility] Mean Platelet Volume 9.9 7.6 - 12.9 [facility]ATORY NRBC% auto 0.0 % [facility] NRBC Absolute 0.000 0.000 - 0.000 x10(3)/mc L [facility] Blood 07/14/2021 7:16 AM EDT 07/14/2021 7:20 AM EDT Narrative Resulting Agency Comment Spec In Lab Basim Barr MD HEMATOLOGY ORDERABLE S [facility] [place] [address] * (ABNORMAL) Basic Metabolic Panel (non-fasting) (07/14/2021 7:16 AM EDT) Glucose 184 65 - 199 mg/dL [facility] Comment:Diabetes: >=200 mg/d L plus symptoms Blood Urea Nitrogen 13 10 - 20 mg/dL [facility] Creatinine 0.71(L) 0.80 - 1.50 mg/dL [facility] Sodium 138 135 - 145 mmol/L [facility] Potassium 4.3 3.5 - 5.0 mmol/L [facility] Comment: Please note: ??Patients with WBC >100,000 may have falsely elevated Potassium levels. ??For accurate Potassium quantification in these patients send serum separator tube (gold top) for subsequent determinations. ??Contact the Clinical Chemistry Laboratory if there are any questions. Chloride 103 98 - 107 mmol/L [facility] Carbon Dioxide 22 22 - 31 mmol/L [facility] Anion Gap 13 5 - 15 mmol/L [facility] Calcium 9.0 8.5 - 10.5 mg/dL [facility] Est Glomerular Filtration Rate 93 >=60 mL/min/1. 73 m?? [facility] Comment: This patient? s estimated [...] Barr MD CHEMISTRY ORDERABLES Performing Organization Address City/[facility]/ZIP Co de Phone Number [facility] [place] [address] * Prealbumin (07/14/2021 7:16 AM EDT) Prealbumin 23 20 - 40 mg/dL [facility] Comment: Prealbumin levels are generally lower in the pediatric population; adult concentrations are usually attained near puberty. Blood 07/14/2021 7:16 AM EDT 07/14/2021 7:20 AM EDT Narrative Resulting Agency Comment Spec In Lab Basim Barr MD CHEMISTRY ORDERABLES Performing Organization Address [facility] Center/[facility] Co de Phone Number [facility] [place] [address] * SCAN DOC: IMPLANTABLE DEVICES (07/14/2021 12:00 [...] 0843 (Given - Provider: Inga Joel, AYE) atorvastatin (Lipitor) tablet 80 mg 80 [...] parameters not met)1602 (Given - Provider: Tonja Coe, AYE)2151 (Given - Provider: Kecia Reynolds RN) 0829 (Given - Provider: Inga Joel, AYE)1130 (Not Given - Provider: Inga Joel, AYE - Reason: Contraindicated - Comment: pt going [...] 4mg documented in this encounter Care Teams Production Machinist Relationship Specialty Start Date End Date Alo Carey DO [address] [place] [address] [place] [address] PCP - General Internal Medicine 08/31/20 07/03/23 documented as of this encounter
--- OUTSIDE RECORDS SUMMARY | 2024-03-12 10:58 | XMS_ITS | Encounter Summary ---
[place] [address] Care Team Providers Care Emu Farmer Name Role Phone YungAlo santiago Primary Care Provider Encounter Details Date Type Department Care Team (Late st Contact Info) Description 06/30/2021 Telephone Radiation Oncology at [address] [phone] Juli Tripathi RN Social History [...] PM EDT Radiation Oncology Nurse Telephone Note [place], [place] Saturday06/30/21 11:[address] [...] EST TH Visit (TeleHealth) Radiation Oncology at [address] [phone] Ping Moore PA [facility] DR HEMATOLOGY [place] [address] 03/26/2024 9:30 AM EST Office Visit Hematology/Oncology at [address] [phone] [address] [place] [address] 03/26/2024 9:30 AM EST Infusion Hematology Oncology at [address] [phone] 04/09/2024 9:30 AM EST Office Visit Hematology/Oncology at [address] [phone] Cl Hess MD [facility] [place] [address] [address]e [address] [place] [address] 04/09/2024 10:00 AM EST Infusion Hematology Oncology at [address] [phone] 04/23/2024 9:30 AM EST Office Visit Hematology/Oncology at [address] [phone] Cl Hess MD [facility] [place] [place] [address] Yessi Renee APRN [address] [place] [address] DR HEMATOLOGY AND ONCOLOGY [place], [place] [address] 04/23/2024 10:00 AM EST Infusion Hematology Oncology at [address] [phone] 05/18/2024 4:30 PM EDT TH Visit (TeleHealth) [place] [address] Malachi Rothman MD [facility] [place] [address] documented as of this encounter Visit Diagnoses Not on filedocumented in this encounter Care Teams Emu Farmer Relationship Specialty Start Date End Date Alo Carey DO [address] [place] [address] [place] [address] PCP - General Internal Medicine 08/31/20 07/03/23 documented as of this encounter
--- OUTSIDE RECORDS SUMMARY | 2024-03-12 10:58 | XMS_ITS | Encounter Summary ---
[place] [address] Care Team Providers Care In Flight Technician Name Role Phone Alo Carey DO Primary Care Provider [phone] Encounter Details Date Type Department Care Team (Late st Contact Info) Description 07/12/2021 Telephone [place] [phone] Rocío Manuel RN Social History Tobacco Use Types Packs/Day [...] covid test set up for today at [facility]. States he had app[place] [facility] [place] preop (surgery scheduled for 07/14/21 at [facility]) but his appt with md went over time and he missed it. [place] is back in [place] now and wants test there so he can have surgery on Saturday. I will forward this message to preop schedulers. Please call pt reid at [phone]. documented in this encounter Plan of Treatment Upcoming Encounters Date Type Department Care Team (Late st Contact Info) Description 03/24/2024 9:00 AM EST TH Visit (TeleHealth) Radiation Oncology at [address] [phone] Ping Moore PA [facility] HEMATOLOGY [place] [address] 03/26/2024 9:30 AM EST Office Visit Hematology/Oncology at [address] [phone] [address] HEMATOLOGY AND ONCOLOGY [place], [place] [phone] 03/26/2024 9:30 AM EST Infusion Hematology Oncology at [address] [phone] 04/09/2024 9:30 AM EST Office Visit Hematology/Oncology at [address] [phone] Cl Hess MD [facility] [place] [address] [address] HEMATOLOGY AND ONCOLOGY [place], [place] [address] 04/09/2024 10:00 AM EST Infusion Hematology Oncology at [address] [phone] 04/23/2024 9:30 AM EST Office Visit Hematology/Oncology at [address] [phone] Cl Hess MD [facility] [place] [address] Yessi Renee APRN [address] [place] [address] DR [place] [address] 04/23/2024 10:00 AM EST Infusion Hematology Oncology at [address] [phone] 05/18/2024 4:30 PM EDT TH Visit (TeleHealth) [place] [address] Malachi Rothman MD [facility] [place] [address] documented as of this encounter Visit Diagnoses Not on filedocumented in this encounter Care Teams In Flight Technician Relationship Specialty Start Date End Date Alo Carey DO [address] [place] [address] [place] [address] PCP - General Internal Medicine 08/31/20 07/03/23 documented as of this encounter
--- OUTSIDE RECORDS SUMMARY | 2024-03-12 10:58 | XMS_ITS | Encounter Summary ---
Author Organization [facility] [place] [address] Care Team Providers Care Planisher Name Role Phone Alo Carey DO Primary Care Provider [phone] Encounter Details Date Type Department Care Team (Late st Contact Info) Description 07/18/2021 12:10 PM EDT Ancillary Procedure Radiology Library at [facility] [place] [address] Alo Carey DO [address] [place] [phone] Social History Tobacco Use Types Packs/Day Years [...] EST TH Visit (TeleHealth) Radiation Oncology at [address] [phone] Ping Moore PA [facility] DR HEMATOLOGY [place] [address] 03/26/2024 9:30 AM EST Office Visit Hematology/Oncology at [address] [phone] [address] HEMATOLOGY AND ONCOLOGY [place], [place] [phone] 03/26/2024 9:30 AM EST Infusion Hematology Oncology at [address] [phone] 04/09/2024 9:30 AM EST Office Visit Hematology/Oncology at [address] [phone] Cl Hess MD [facility] [place] [address] [address] HEMATOLOGY AND ONCOLOGY [place], [place] [phone] 04/09/2024 10:00 AM EST Infusion Hematology Oncology at [address] [phone] 04/23/2024 9:30 AM EST Office Visit Hematology/Oncology at [address] [phone] Cl Hess MD [facility] [place] [address] Yess[address] Renee [address] HEMATOLOGY AND ONCOLOGY [place], [place] [phone] 04/23/2024 10:00 AM EST Infusion Hematology Oncology at [address] [phone] 05/18/2024 4:30 PM EDT TH Visit (TeleHealth) [place] [address] Malachi Rothman MD [facility] [place] [address] documented as of this encounter Procedures Procedure Name Priority Date/Time Associated Diagnosis Comments FILM LIBRARY STORAGE ONLY CT HEAD Routine 07/18/2021 11:58 AM EDT documented in this encounter Results * Film Library- Storage Only CT Head (07/18/2021 11:58 AM EDT) Narrative [facility] - 07/18/2021 11:58 AM EDT This exam is auto-finalizing. It's purpose is for storage only. Alo Carey DO [facility] [place]M LIBRARY ORD ERABLES [place], [place] documented in this encounter Visit Diagnoses Not on filedocumented in this encounter Care Teams Planisher Relationship Specialty Start Date End Date Alo Carey DO [address] [place] [address] [place] [phone] PCP - General Internal Medicine 08/31/20 07/03/23 documented as of this encounter
--- OUTSIDE RECORDS SUMMARY | 2024-03-12 10:58 | XMS_ITS | Encounter Summary ---
[place] [address] Care Team Providers Care Die Cutter Name Role Phone Alo Carey Primary Care Provider Encounter Details Date Type Department Care Team (Late st Contact Info) Description 07/12/2021 Orders [place] [address] Rocío Manuel, RN *Screening for COVID-19 virus [...] TH Visit (TeleHealth) Radiation Oncology at [address] [phone] Ping Moore PA [facility] DR [place] [address] 03/26/2024 9:30 AM EST Office Visit Hematology/Oncology at [address] [phone] [address] HEMATOLOGY AND ONCOLOGY [place], [place] [address] 03/26/2024 9:30 AM EST Infusion Hematology Oncology at [address] [phone] 04/09/2024 9:30 AM EST Office Visit Hematology/Oncology at [address] [phone] Cl Hess MD [facility] [place] [address] [address] HEMATOLOGY AND ONCOLOGY [place], [place] [phone] 04/09/2024 10:00 AM EST Infusion Hematology Oncology at [address] [phone] 04/23/2024 9:30 AM EST Office Visit Hematology/Oncology at [address] [phone] Cl Hess MD [facility] [place] [address] Yess[address] Renee [address] HEMATOLOGY AND ONCOLOGY [place], [place] [address] 04/23/2024 10:00 AM EST Infusion Hematology Oncology at [address] [phone] 05/18/2024 4:30 PM EDT TH Visit (TeleHealth) [place] [address] Malachi Rothman MD [facility] [place] [address] documented as of this encounter Visit Diagnoses Diagnosis Encounter for screening laboratory testing for COVID-19 virus documented in this encounter Care Teams Die Cutter Relationship Specialty Start Date End Date Alo Carey DO [address] [place] [address] [place] [phone] PCP - General Internal Medicine 08/31/20 07/03/23 documented as of this encounter
--- OUTSIDE RECORDS SUMMARY | 2024-03-12 10:58 | XMS_ITS | Encounter Summary ---
[place] [address] Care Team Providers Care Distillery Supervisor Name Role Phone YungAlo santiago Primary Care Provider [phone] Reason for Visit * Reason Comments Simulation [...] Expiration Date Visits Re quested Visits Authorized [id number] 1 1 Encounter Details Date Type Department Care Team (Late st Contact Info) Description 07/11/2021 3:00 PM EDT Ancillary Appointment [place] [phone] Bigg Peters MD [address] [place] [address] [place] [address] Social History Tobacco Use Types Packs/Day Years [...] prostate cancer with Radiation Therapy [facility] at [facility] Gold Coils (Fiducial Markers) Small gold filaments [...] Saturday 8 AM to 5 PM for [facility] for [facility] If you have questions about your [...] is urgent. A Radiation Oncology doctor is floor covering contractor after our normal hours and on weekends. To call for urgent medical issues from radiation treatments that can not wait until normal business hours, please call and have the tetryl boiling tub operator page the Radiation Oncologist floor covering contractor. documented in this encounter Progress Notes * Bigg Peters MD - 07/11/2021 3:00 PM EDT Simulation Note for External Beam Radiation Treatment Planning [facility] Jae Sadler is a 71 y.o. year [...] of any short term side effects or residential complications of therapy. I anticipate his prescription [...] TH Visit (TeleHealth) Radiation Oncology at [address] [phone] Ping Moore PA [facility] DR [place] [address] 03/26/2024 9:30 AM EST Office Visit Hematology/Oncology at [address] [phone] Yessi Renee APRN [address] [place] [address] 03/26/2024 9:30 AM EST Infusion Hematology Oncology at [address] [phone] 04/09/2024 9:30 AM EST Office Visit Hematology/Oncology at [address] [phone] Cl Hess MD [facility] [address] [address] HEMATOLOGY AND ONCOLOGY [place], [place] [address] 04/09/2024 10:00 AM EST Infusion Hematology Oncology at [address] [phone] 04/23/2024 9:30 AM EST Office Visit Hematology/Oncology at [address] [phone] Cl Hess MD [facility] [place] [address] [address] HEMATOLOGY AND ONCOLOGY [place], [place] [address] 04/23/2024 10:00 AM EST Infusion Hematology Oncology at [address] [phone] 05/18/2024 4:30 PM EDT TH Visit (TeleHealth) [place] [address] Malachi Rothman MD [facility] [place] [address] Scheduled Orders Name Type Priority Associated Diagnoses Orde r Schedule Simulation for Radiation Therapy Planning Procedures Routine Malignant neoplasm of prostate Ordered: 04/04/2021 documented as of this encounter Visit Diagnoses Not on filedocumented in this encounter Care Teams Distillery Supervisor Relationship Specialty Start Date End Date Alo Carey DO [address] [place] [address] [place] [address] PCP - General Internal Medicine 08/31/20 07/03/23 documented as of this encounter
--- OUTSIDE RECORDS SUMMARY | 2024-03-12 10:58 | XMS_ITS | Encounter Summary ---
[place] [address] Care Team Providers Care Shop Coordinator Name Role Phone YungAlo santiago Lon RUTHERFORD Primary Care Provider [phone] Reason for Visit * Auth/Cert Specialty Diagnoses [...] Expiration Date Visits Re quested Visits Authorized [id number] 1 1 Encounter Details Date Type Department Care Team (Latest Contact Info) Description 07/11/2021 1:00 PM EDT Public Health [place] [address] Encounter for preprocedure screening laboratory testing for [...] TH Visit (TeleHealth) Radiation Oncology at [address] [phone] Ping Moore PA [facility] DR HEMATOLOGY [place] [address] 03/26/2024 9:30 AM EST Office Visit Hematology/Oncology at [address] [phone] Yessi Renee [address] HEMATOLOGY AND ONCOLOGY [place], [place] [phone] 03/26/2024 9:30 AM EST Infusion Hematology Oncology at [address] [phone] 04/09/2024 9:30 AM EST Office Visit Hematology/Oncology at [address] [phone] Cl Hess MD [facility] [place] [address] Yessi Renee [address] HEMATOLOGY [place] [address] 04/09/2024 10:00 AM EST Infusion Hematology Oncology at [address] [phone] 04/23/2024 9:30 AM EST Office Visit Hematology/Oncology at [address] [phone] Cl Hess MD [facility] [place] [address] Yessi Renee APRN [address] [place] [address] DR HEMATOLOGY [place] [address] 04/23/2024 10:00 AM EST Infusion Hematology Oncology at [address] [phone] 05/18/2024 4:30 PM EDT TH Visit (TeleHealth) [place] [address] Malachi Rothman MD [facility] DR [place] [address] documented as of this encounter Visit Diagnoses Diagnosis Encounter for preprocedure screening laboratory testing for COVID-19 documented in this encounter Care Teams Shop Coordinator Relationship Specialty Start Date End Date Alo Carey DO [address] [place] [address] [place] [phone] PCP - General Internal Medicine 08/31/20 07/03/23 documented as of this encounter
--- OUTSIDE RECORDS SUMMARY | 2024-03-12 10:58 | XMS_ITS | Encounter Summary ---
[place] [address] Care Team Providers Care Manager Managed Care Name Role Phone YungAlo santiago Primary Care Provider [phone] Encounter Details Date Type Department Care Team (Late st Contact Info) Description 07/06/2021 Telephone Radiation Oncology at [address] [phone] Juli Tripathi RN Social History [...] Radiation Oncology Post-Procedure Phone Note Name: Wero Sadler Adwoa#: [id number] : 1950 Date/Time of Call: 07/06/21 Procedure: [...] YES NO x Comments/interventions: Section Radiation Oncology [facility] documented in this encounter Plan of Treatment Upcoming Encounters Date Type Department Care Team (Late st Contact Info) Description 03/24/2024 9:00 AM EST TH Visit (TeleHealth) Radiation Oncology at [address] [phone] Ping Moore PA [facility] DR HEMATOLOGY [place] [address] 03/26/2024 9:30 AM EST Office Visit Hematology/Oncology at [address] [phone] Yessi Renee APRN [address] [place] [address] DR HEMATOLOGY AND ONCOLOGY [place], [place] [phone] 03/26/2024 9:30 AM EST Infusion Hematology Oncology at [address] [phone] 04/09/2024 9:30 AM EST Office Visit Hematology/Oncology at [address] [address] Cl Hess MD [facility] [place] [address] [address] HEMATOLOGY AND ONCOLOGY [place], [place] [address] 04/09/2024 10:00 AM EST Infusion Hematology Oncology at [address] [phone] 04/23/2024 9:30 AM EST Office Visit Hematology/Oncology at [address] [phone] Cl Hess MD [facility] [place] [address] [address] [place] [address] 04/23/2024 10:00 AM EST Infusion Hematology Oncology at [address] [phone] 05/18/2024 4:30 PM EDT TH Visit (TeleHealth) [place] [address] Malachi Rothman MD [facility] DR [place] [address] documented as of this encounter Visit Diagnoses Not on filedocumented in this encounter Care Teams Manager Managed Care Relationship Specialty Start Date End Date Alo Carey DO [address] [place] [address] [place] [address] PCP - General Internal Medicine 08/31/20 07/03/23 documented as of this encounter
--- OUTSIDE RECORDS SUMMARY | 2024-03-12 10:59 | XMS_ITS | Encounter Summary ---
[place] [address] Care Team Providers Care Survey Questionnaire Designer Name Role Phone YungAlo santiago Primary Care Provider [phone] Reason for Visit * Reason Onset Date Comments Pre Procedure Call 06/22/2021 Encounter Details Date Type Department Care Team (Late st Contact Info) Description 06/22/2021 Tele[place] [phone] Ismael Wu MD [facility] DR [place] [address] Pre Procedure Call Social History Tobacco Use [...] Miscellaneous Notes * Telephone Encounter - Floridalma Dunne - 06/22/2021 10:29 AM EDT Who is calling? Wero Best call back number: [phone] Best time to call back between 8:00 [...] of these or even coordinated on July 25when he's here for another procedure. Please contact patient - they cannot take direct # for OR schedulers because patient is blind. documented in this encounter Plan of Treatment Upcoming Encounters Date Type Department Care Team (Late st Contact Info) Description 03/24/2024 9:00 AM EST TH Visit (TeleHealth) Radiation Oncology at [address] [phone] Ping Moore PA [facility] DR HEMATOLOGY [place] [address] 03/26/2024 9:30 AM EST Office Visit Hematology/Oncology at [address] [phone] Yessi Renee PRODUCT ASSEMBLER [address] [place] [address] HEMATOLOGY AND ONCOLOGY [place], [place] [address] 03/26/2024 9:30 AM EST Infusion Hematology Oncology at [address] [phone] 04/09/2024 9:30 AM EST Office Visit Hematology/Oncology at [address] [phone] Cl Hess MD [facility] [address] [address] HEMATOLOGY [place] [address] 04/09/2024 10:00 AM EST Infusion Hematology Oncology at [address] [phone] 04/23/2024 9:30 AM EST Office Visit Hematology/Oncology at [address] [phone] Cl Hess MD [facility] [place] [address] [address] HEMATOLOGY [place] [address] 04/23/2024 10:00 AM EST Infusion Hematology Oncology at [address] [phone] 05/18/2024 4:30 PM EDT TH Visit (TeleHealth) [place] [address] Malachi Rothman MD [facility] [place] [address] documented as of this encounter Visit Diagnoses Not on filedocumented in this encounter Care Teams Survey Questionnaire Designer Relationship Specialty Start Date End Date Alo Carey DO [address] [place] [address] [place] [phone] PCP - General Internal Medicine 08/31/20 07/03/23 documented as of this encounter
--- OUTSIDE RECORDS SUMMARY | 2024-03-12 10:59 | XMS_ITS | Encounter Summary ---
[place] [address] Care Team Providers Care Hand Candle Dipper Name Role Phone YungAlo santiago Primary Care Provider [phone] Reason for Visit * Reason Onset Date Comments Other 04/24/2021 Lab orders Encounter Details Date Type Department Care Team (Late st Contact Info) Description 04/24/2021 [place] [phone] Kushal Aceves MD [facility] [place] [address] Other (Lab orders/) Social History Tobacco Use [...] PM EST Creatinine order pended to Dr. Aceevs for signature/ approval. * Telephone Encounter - Matti Slater - 04/24/2021 11:44 AM EST Call Center / [place] Message - Lab/Test being requested to be done Provider patient sees in Clinic: Kushal Aceves MD Caller: [facility] Radiology If not Pt / Relation to pt: Call back Number: [phone] OK to leave message: Yes Reason for call: request for lab or test orders ??? What labs or tests are being requested: Creatinine labs prior to MRI scheduled for 05/02/21 ??? Where does the caller request the order be sent: [facility] ORDERS IN THE CHART: No Send request to the nurse Any additional information for the nurse/provider: Disposition of call ( choose one and remove the other) ??? Message sent to clinic nurse documented in this encounter Plan of Treatment Upcoming Encounters Date Type Department Care Team (Late st Contact Info) Description 03/24/2024 9:00 AM EST TH Visit (TeleHealth) Radiation Oncology at [address] [phone] Ping Moore PA [facility] [place] [address] 03/26/2024 9:30 AM EST Office Visit Hematology/Oncology at [address] [phone] Yessi Renee APRN [address] [place] [address] HEMATOLOGY AND ONCOLOGY [place], [place] [phone] 03/26/2024 9:30 AM EST Infusion Hematology Oncology at [address] [phone] 04/09/2024 9:30 AM EST Office Visit Hematology/Oncology at [address] [phone] Cl Hess MD [facility] [place] [address] HEMATOLOGY AND ONCOLOGY [place], [place] [address] 04/09/2024 10:00 AM EST Infusion Hematology Oncology at [address] [phone] 04/23/2024 9:30 AM EST Office Visit Hematology/Oncology at [address] [phone] Cl Hess MD [facility] [place] [address] [place] [address] 04/23/2024 10:00 AM EST Infusion Hematology Oncology at [address] [phone] 05/18/2024 4:30 PM EDT TH Visit (TeleHealth) [place] [address] Malachi Rothman MD [facility] [place] [address] documented as of this encounter Visit Diagnoses Diagnosis Stenosis of right carotid artery Occlusion and stenosis of carotid artery without mention of cerebral infarction documented in this encounter Care Teams Hand Candle Dipper Relationship Specialty Start Date End Date Alo Carey DO [address] [place] [address] [place] [address] PCP - General Internal Medicine 08/31/20 07/03/23 documented as of this encounter
--- OUTSIDE RECORDS SUMMARY | 2024-03-12 10:59 | XMS_ITS | Encounter Summary ---
[place] [address] Care Team Providers Care Rock Wool Applicator Name Role Phone Alo Carey Primary Care Provider [phone] Encounter Details Date Type Department Care Team (Late st Contact Info) Description 06/20/2021 Orders Only Radiation Oncology at [address] [place] [address] Bigg Peters MD [address] [place] [address] DR RADIATION ONCOLOGY [place], [place] [phone] Malignant neoplasm of prostate Social History Tobacco [...] TH Visit (TeleHealth) Radiation Oncology at [address] [phone] Ping Moore PA [facility] DR HEMATOLOGY AND [place] [address] 03/26/2024 9:30 AM EST Office Visit Hematology/Oncology at [address] [phone] [address] HEMATOLOGY AND ONCOLOGY [place], [place] [phone] 03/26/2024 9:30 AM EST Infusion Hematology Oncology at [address] [phone] 04/09/2024 9:30 AM EST Office Visit Hematology/Oncology at [address] [phone] Cl Hess MD [facility] [place] [address] [address] HEMATOLOGY AND ONCOLOGY [place], [place] [phone] 04/09/2024 10:00 AM EST Infusion Hematology Oncology at [address] [phone] 04/23/2024 9:30 AM EST Office Visit Hematology/Oncology at [address] [phone] Cl Hess MD [facility] [place] [address] [address] HEMATOLOGY AND ONCOLOGY [place], [place] [phone] 04/23/2024 10:00 AM EST Infusion Hematology Oncology at [address] [phone] 05/18/2024 4:30 PM EDT TH Visit (TeleHealth) [place] [address] Malachi Rothman MD [facility] [place] [address] documented as of this encounter Visit Diagnoses Diagnosis Malignant neoplasm of prostate documented in this encounter Care Teams Rock Wool Applicator Relationship Specialty Start Date End Date Alo Carey DO [address] [place] [address] [place] [phone] PCP - General Internal Medicine 08/31/20 07/03/23 documented as of this encounter
--- OUTSIDE RECORDS SUMMARY | 2024-03-12 10:59 | XMS_ITS | Encounter Summary ---
[place] [address] Care Team Providers Care Lead Cargoman Name Role Phone YungAlo santiago Primary Care Provider [phone] Encounter Details Date Type Department Care Team (Late st Contact Info) Description 05/04/2021 [place]phone [place] [phone] Floridalma Simmons Social History Tobacco Use Types [...] test (Molecular, Antigen, Antibody orunknown): Resides in retirement, senior living or other residential facility No Employee or Household Member of Employee No Healthcare Worker No Telephone call placed/received to schedule Covid 19 testing with patient. Ordering provider: Ismael Wu Testing Facility: [facility] Facility Date of Testin/21 Time of Testing:TBD Symptoms: Pre Op Please send order to listed facility. documented in this encounter Plan of Treatment Upcoming Encounters Date Type Department Care Team (Late st Contact Info) Description 03/24/2024 9:00 AM EST TH Visit (TeleHealth) Radiation Oncology at [address] [phone] Ping Moore PA [facility] [place] [address] 03/26/2024 9:30 AM EST Office Visit Hematology/Oncology at [address] [phone] Yessi Renee [address] HEMATOLOGY AND ONCOLOGY [place], [place] [phone] 03/26/2024 9:30 AM EST Infusion Hematology Oncology at [address] [phone] 04/09/2024 9:30 AM EST Office Visit Hematology/Oncology at [address] [phone] Cl Hess MD [facility] [place] [address] Yessi Renee [address] HEMATOLOGY AND ONCOLOGY [place], [place] [address] 04/09/2024 10:00 AM EST Infusion Hematology Oncology at [address] [phone] 04/23/2024 9:30 AM EST Office Visit Hematology/Oncology at [address] [phone] Cl Hess MD [facility] [place] [address] Yessi Renee APRN [address] [place] [address] [place] [address] 04/23/2024 10:00 AM EST Infusion Hematology Oncology at [address] [phone] 05/18/2024 4:30 PM EDT TH Visit (TeleHealth) [place] [address] Malachi Rothman MD [facility] [place] [address] documented as of this encounter Visit Diagnoses Diagnosis Encounter for screening laboratory testing for COVID-19 virus documented in this encounter Care Teams Lead Cargoman Relationship Specialty Start Date End Date Alo Carey DO [address] [place] [address] [place] [address] PCP - General Internal Medicine 08/31/20 07/03/23 documented as of this encounter
--- OUTSIDE RECORDS SUMMARY | 2024-03-12 10:59 | XMS_ITS | Encounter Summary ---
Author Organization [facility] [place] [address] Care Team Providers Care Silver Buffer Name Role Phone Alo Carey DO Primary Care Provider [phone] Encounter Details Date Type Department Care Team (Late st Contact Info) Description 05/02/2021 7:40 PM EST Ancillary Procedure Radiology Library at [facility] [place] [address] Kushal Aceves MD [facility] [place] [address] Social History Tobacco Use Types Packs/Day Years [...] TH Visit (TeleHealth) Radiation Oncology at [address] [phone] Ping Moore PA [facility] DR HEMATOLOGY [place] [address] 03/26/2024 9:30 AM EST Office Visit Hematology/Oncology at [address] [phone] [address] HEMATOLOGY AND ONCOLOGY [place], [place] [phone] 03/26/2024 9:30 AM EST Infusion Hematology Oncology at [address] [phone] 04/09/2024 9:30 AM EST Office Visit Hematology/Oncology at [address] [phone] Cl Hess MD [facility] [place] [address] [address] HEMATOLOGY AND ONCOLOGY [place], [place] [phone] 04/09/2024 10:00 AM EST Infusion Hematology Oncology at [address] [phone] 04/23/2024 9:30 AM EST Office Visit Hematology/Oncology at [address] [phone] Cl Hess MD [facility] [place] [address] [address] HEMATOLOGY AND ONCOLOGY [place], [place] [phone] 04/23/2024 10:00 AM EST Infusion Hematology Oncology at [address] [phone] 05/18/2024 4:30 PM EDT TH Visit (TeleHealth) [place] [address] Malachi Rothman MD [facility] DR RADIATION [place] [address] documented as of this encounter Procedures Procedure Name Priority Date/Time Associated Diagnosis Comments FILM LIBRARY STORAGE ONLY CT HEAD AND SPINE Routine 05/02/2021 7:36 PM EST documented in this encounter Results * Film Library- Storage Only CT Head And Spine (05/02/2021 7:36 PM EST) Narrative [facility] - 05/02/2021 7:36 PM EST This exam is auto-finalizing. It's purpose is for storage only. Kushal Aceves MD IMG FILM LIBRARY O RDERABLES [place], [place] documented in this encounter Visit Diagnoses Not on filedocumented in this encounter Care Teams Silver Buffer Relationship Specialty Start Date End Date Alo Carey DO [address] [place] [address] [place] [phone] PCP - General Internal Medicine 08/31/20 07/03/23 documented as of this encounter
--- OUTSIDE RECORDS SUMMARY | 2024-03-12 10:59 | XMS_ITS | Encounter Summary ---
[place] [address] Care Team Providers Care Wood Turner Name Role Phone YungAlo santiago Primary Care Provider [phone] Encounter Details Date Type Department Care Team (Late st Contact Info) Description 06/19/2021 Telephone [place] [phone] Antonietta Mccray Social History Tobacco Use Types [...] TH Visit (TeleHealth) Radiation Oncology at [address] [phone] Ping Moore PA [facility] DR [place] [address] 03/26/2024 9:30 AM EST Office Visit Hematology/Oncology at [address] [phone] Yessi Renee[address] HEMATOLOGY AND ONCOLOGY [place], [place] [phone] 03/26/2024 9:30 AM EST Infusion Hematology Oncology at [address] [phone] 04/09/2024 9:30 AM EST Office Visit Hematology/Oncology at [address] [phone] Cl Hess MD [facility] [place] [address] [address] [place] [address] 04/09/2024 10:00 AM EST Infusion Hematology Oncology at [address] [phone] 04/23/2024 9:30 AM EST Office Visit Hematology/Oncology at [address] [phone] Cl Hess MD [facility] [place] [address] Yessi Renee APRN [address] [place] [address] DR HEMATOLOGY AND ONCOLOGY [place], [place] [address] 04/23/2024 10:00 AM EST Infusion Hematology Oncology at [address] [phone] 05/18/2024 4:30 PM EDT TH Visit (TeleHealth) [place] [address] Malachi Rothman MD [facility] [place] [address] documented as of this encounter Visit Diagnoses Not on filedocumented in this encounter Care Teams Wood Turner Relationship Specialty Start Date End Date Alo Carey DO [address] [place] [address] [place] [address] PCP - General Internal Medicine 08/31/20 07/03/23 documented as of this encounter
--- OUTSIDE RECORDS SUMMARY | 2024-03-12 10:59 | XMS_ITS | Encounter Summary ---
[place] [address] Care Team Providers Care Wet Process Miller Name Role Phone YungAlo santiago Primary Care Provider [phone] Encounter Details Date Type Department Care Team (Latest Contact Info) Description 05/04/2021 11:00 AM EST Clinical [place] [phone] Primary osteoarthritis of right hip; Right leg [...] TH Visit (TeleHealth) Radiation Oncology at [address] [phone] Ping Moore PA [facility] HEMATOLOGY [place] [address] 03/26/2024 9:30 AM EST Office Visit Hematology/Oncology at [address] [phone] Yessi Renee ETL SOFTWARE ENGINEER [address] [place] [address] DR HEMATOLOGY AND ONCOLOGY [place], [place] [phone] 03/26/2024 9:30 AM EST Infusion Hematology Oncology at [address] [phone] 04/09/2024 9:30 AM EST Office Visit Hematology/Oncology at [address] [phone] Cl Hess MD [facility] [place] [address] Yessi Renee, [address] HEMATOLOGY AND ONCOLOGY [place], [place] [address] 04/09/2024 10:00 AM EST Infusion Hematology Oncology at [address] [phone] 04/23/2024 9:30 AM EST Office Visit Hematology/Oncology at [address] [phone] Cl Hess MD [facility] [place] [place] [address] [address] HEMATOLOGY AND ONCOLOGY [place], [place] [address] 04/23/2024 10:00 AM EST Infusion Hematology Oncology at [address] [phone] 05/18/2024 4:30 PM EDT TH Visit (TeleHealth) [place] [address] Malachi Rothman MD [facility] [place] [address] documented as of this encounter Procedures Procedure [...] 11:34 AM EST) T&S only valid at [facility] LABORATORY Comment:This Type and Screen result is only valid at the [facility] Blood 05/04/2021 11:3 4 AM EST 05/04/2021 11:34 AM EST Narrative Resulting Agency Comment Spec In Lab Ismael Wu MD BLOOD BANK LAB SAUD CHENG Performing Organization Address City/[facility]/ZIP Co de Phone Number [facility] [place] [address] * ABORH Recheck Status (05/04/2021 11:34 AM EST) ABORH Type Recheck Completed [facility]OR[facility] Blood 05/04/2021 11:3 4 AM EST 05/04/2021 11:34 AM EST Narrative Resulting Agency Comment Spec In Lab Ismael Wu MD BLOOD BANK LAB SAUD CHENG Performing Organization Address City/[facility]/ZIP Co de Phone Number [facility] [place] [address] * Antibody screen (05/04/2021 11:34 AM EST) Ab Screen Interp Negative [facility]OR[facility]ORY Expires at 2359 on: 06/18/2021 [facility] Comment: Corrected from 05/28/21 0:00:00 EDT [Unknown] on 05/22/21 18:29:23 EDT by Irma Morales Blood 05/04/2021 11:3 4 AM EST 05/04/2021 11:34 AM EST Narrative Resulting Agency Comment Spec In Lab Ismael Wu MD BLOOD BANK LAB ORDE PROSPER Performing Organization Address [facility]/ZIP Co de Phone Number [facility] [place] [address] * Differential, Automated (05/04/2021 11:34 AM EST) [facility] Neutrophil % 56.0 % [facility] LABORATORY Neutrophil Absolute 3.78 1.70 - 6.10 x10(3)/[facility] LABORATORY Lymph % 30.6 % [facility]OR[facility] Lymphocytes Abs 2.1 0.9 - 3.2 x10(3)/[facility] LABORATORY Monocyte % 9.2 % [facility] LABORATORY Monocyte Abs 0.6 0.3 - 0.9 x10(3)/[facility] LABORATORY Eos % 3.3 % [facility]ORATORY Eosinophils Abs 0.2 0.0 - 0.4 x10(3)/[facility] LABORATORY Basophil % 0.6 % [facility] LABORAT[facility] Baso Absolute 0.0 0.0 - 0.1 x10(3)/[facility] LABORATORY Immature Gran % 0.30 % [facility]ORATORY Comment: Immature granulocytes(IG's)percentage and absolute count will include metamyelocytes, myelocytes, and promyelocytes. Blood smears from CBCs yielding IG's will be scanned manually for concordance. If this scan disagrees with the automated IG or if promyelocytes are noted, a manual differential will be performed. Immature Gran Absolute 0.02 0.00 - 0.04 x10(3)/mcL [facility]OR[facility] Blood 05/04/2021 11:3 4 AM EST 05/04/2021 11:46 AM EST Narrative Resulting Agency Comment Spec In Lab Ismael Wu MD HEMATOLOGY ORDERABL ES [facility] [place] [address] * ABO/Rh Typing (05/04/2021 11:34 AM EST) Pathologist [facility] ABORH Type O Pos [facility] LABORATORY Blood 05/04/2021 11:3 4 AM EST 05/04/2021 11:34 AM EST Narrative Resulting Agency Comment Spec In Lab Ismael Wu MD BLOOD BANK LAB ORDE RABLES Performing Organization Address City/[facility]/ZIP Co de Phone Number [facility] [place] [address] * (ABNORMAL) Hemogram (05/04/2021 11:34 AM EST) White Blood Cell 6.7 4.0 - 9.5 x10(3)/mc L [facility] Red Blood Cell 4.33(L) 4.58 - 5.54 x10(6)/mc L [facility] Hemoglobin 13.5(L) 13.7 - 16.5 g/dL [facility] Hematocrit 41.2 40.5 - 48.5 % [facility] Mean Cell Volume 95.2(H) 82.9 - 93.1 fL [facility] Mean Cell Hemoglobin 31.2 27.5 - 32.1 pg [facility] Mean Cell Hemoglobin Concentration 32.8 32.0 - 35.7 g/dL [facility] Platelet 211 145 - 357 x10(3)/mc L [facility] RDW Standard Deviation 46.2(H) 36.0 - 45.0 fL [facility] RDW coefficient of variation 13.1 11.4 - 13.8 % [facility] Mean Platelet Volume 10.4 7.6 - 12.9 fL [facility] NRBC% auto 0.0 % [facility] NRBC Absolute 0.000 0.000 - 0.000 x10(3)/mc L [facility] Blood 05/04/2021 11:3 4 AM EST 05/04/2021 11:46 AM EST Narrative Resulting Agency Comment Spec In Lab Ismael Wu MD HEMATOLOGY ORDERABL ES Performing Organization Address City/State/[facility] [[email or web address]] Co de Phone Number [facility] [place] [address] * Basic Metabolic Panel (non-fasting) (05/04/2021 11:34 AM EST) Glucose 178 65 - 199 mg/dL [facility] Comment:Diabetes: >=200 mg/d L plus symptoms Blood Urea Nitrogen 19 10 - 20 mg/dL [facility] Creatinine 0.84 0.80 - 1.50 mg/dL [facility] Sodium 140 135 - 145 mmol/L [facility] Potassium 4.6 3.5 - 5.0 mmol/L [facility] Comment: Please note: ??Patients with WBC >100,000 may have falsely elevated Potassium levels. ??For accurate Potassium quantification in these patients send serum separator tube (gold top) for subsequent determinations. ??Contact the Clinical Chemistry Laboratory if there are any questions. Chloride 104 98 - 107 mmol/L [facility] Carbon Dioxide 25 22 - 31 mmol/L [facility] Anion Gap 11 5 - 15 mmol/L [facility] Calcium 9.7 8.5 - 10.5 mg/dL [facility] Est Glomerular Filtration Rate 87 >=60 mL/min/1. 73 m?? [facility] Comment: This patient? [...] MD CHEMISTRY ORDERABLE S Performing Organization Address [facility] de Phone Number [facility] [place] [address] * Prothrombin Time (05/04/2021 11:34 AM EST) Prothrombin Time 11.2 9.4 - 12.5 sec [facility] International Normalization Ratio 1.0 [facility] Comment: An INR [...] MD HEMATOLOGY ORDERABL ES Performing Organization Address [facility] [[email or web address]] Co de Phone Number [facility] [place] [address] * APTT (05/04/2021 11:34 AM EST) Partial Thromboplastin Time 29 25 - 37 sec [facility] Comment: The PTT is NOT appropriate for heparin monitoring. Use the Anti-Xa level for heparin monitoring (HEP UFH) or LMWH monitoring (HEP LMW). A PTT less than 37 seconds generally indicates adequate hemostasis. Blood 05/04/2021 11:3 4 AM EST 05/04/2021 11:46 AM EST Narrative Resulting Agency Comment Spec In Lab Ismael Wu MD HEMATOLOGY ORDERABL ES [facility] [place] [address] documented in this encounter Visit Diagnoses Diagnosis Primary osteoarthritis of right hip Primary localized osteoarthrosis, pelvic region and thigh Right leg pain Pain in limb documented in this encounter Care Teams Wet Process Miller Relationship Specialty Start Date End Date Alo Carey DO [address] [place] [address] [place] [address] PCP - General Internal Medicine 08/31/20 07/03/23 documented as of this encounter
--- OUTSIDE RECORDS SUMMARY | 2024-03-12 10:59 | XMS_ITS | Encounter Summary ---
[place] [address] Care Team Providers Care Podiatric Assistant Name Role Phone Alo Carey Primary Care Provider [phone] Encounter Details Date Type Department Care Team (Late st Contact Info) Description 03/31/2021 Telephone Radiation Oncology at [address] [phone] Juli Tripathi RN Social History [...] PM EST Radiation Oncology Nurse Telephone Note [facility]- [place], [place] ----- Message from Madalyn Stout sent at 03/31/2021 12:23 PM EST ----- Regarding: Meication GIven Elagard was given 22.5MGs Yesterday. Does Lorraine want urology to continue the injections or what is the plan for him. Margarita called to let us know today from [facility] about him getting the injection. But she want to know what our plan is for him going forward. Can we call with a plan [phone] and ask for Margarita. Thanks Tiana~ Call [...] administration of this medication to our number: [phone]. Dr Peters informed of this via this note. documented in this encounter Plan of Treatment Upcoming Encounters Date Type Department Care Team (Late st Contact Info) Description 03/24/2024 9:00 AM EST TH Visit (TeleHealth) Radiation Oncology at [address] [phone] Ping Moore PA [facility] DR [place] [address] 03/26/2024 9:30 AM EST Office Visit Hematology/Oncology at [address] [phone] Yessi Renee APRN [address] [place] [address] DR HEMATOLOGY AND ONCOLOGY [place], [place] [address] 03/26/2024 9:30 AM EST Infusion Hematology Oncology at [address] [phone] 04/09/2024 9:30 AM EST Office Visit Hematology/Oncology at [address] [phone] Cl Hess MD [facility] [place] [address] [address] [place] [address] 04/09/2024 10:00 AM EST Infusion Hematology Oncology at [address] [phone] 04/23/2024 9:30 AM EST Office Visit Hematology/Oncology at [address] [phone] Cl Hess MD [facility] [place] [address] [address] [place] [address] 04/23/2024 10:00 AM EST Infusion Hematology Oncology at [address] [phone] 05/18/2024 4:30 PM EDT TH Visit (TeleHealth) Radiation [place]cology [place] [address] Malachi Rothman MD [facility] [place] [address] documented as of this encounter Visit Diagnoses Not on filedocumented in this encounter Care Teams Podiatric Assistant Relationship Specialty Start Date End Date Alo Carey DO [address] [place] [address] [place] [address] PCP - General Internal Medicine 08/31/20 07/03/23 documented as of this encounter
--- OUTSIDE RECORDS SUMMARY | 2024-03-12 10:59 | XMS_ITS | Encounter Summary ---
[place] [address] Care Team Providers Care Sports Athletic Trainer Name Role Phone YungAlo santiago Primary Care Provider [phone] Reason for Visit * Reason Onset Date Comments Reminder Appointment 04/04/2021 Encounter Details Date Type Department Care Team (Late st Contact Info) Description 04/04/2021 Telephone [place] [phone] Renetta Stallworth CCMA Reminder Appointment Social History [...] EST TH Visit (TeleHealth) Radiation Oncology at [address] [phone] Ping Moore PA [facility] DR [place] [address] 03/26/2024 9:30 AM EST Office Visit Hematology/Oncology at [address] [phone] Yessi Renee [address] HEMATOLOGY AND ONCOLOGY [place], [place] [phone] 03/26/2024 9:30 AM EST Infusion Hematology Oncology at [address] [phone] 04/09/2024 9:30 AM EST Office Visit Hematology/Oncology at [address] [phone] Cl Hess MD [facility] [place] [address] Yessi Renee [address] HEMATOLOGY AND ONCOLOGY [place], [place] [address] 04/09/2024 10:00 AM EST Infusion Hematology Oncology at [address] [phone] 04/23/2024 9:30 AM EST Office Visit Hematology/Oncology at [address] [phone] Cl Hess MD [facility] [place] [address] Yessi Renee APRN [address] [place] [address] [place] [address] 04/23/2024 10:00 AM EST Infusion Hematology Oncology at [address] [phone] 05/18/2024 4:30 PM EDT TH Visit (TeleHealth) [place] [address] Malachi Rothman MD [facility] [place] [address] documented as of this encounter Visit Diagnoses Not on filedocumented in this encounter Care Teams Sports Athletic Trainer Relationship Specialty Start Date End Date Alo Carey DO [address] [place] [address] [place] [address] PCP - General Internal Medicine 08/31/20 07/03/23 documented as of this encounter
--- OUTSIDE RECORDS SUMMARY | 2024-03-12 10:59 | XMS_ITS | Encounter Summary ---
Author Organization [facility] [place] [address] Care Team Providers Care Tire Balancer Name Role Phone YungAlo santiago Primary Care Provider [phone] Encounter Details Date Type Department Care Team (Late st Contact Info) Description 03/29/2021 Telephone [place] [address] Kushal Aceves MD [facility] [place] [address] Social History Tobacco Use Types Packs/Day Years [...] - 05/03/2021 6:50 AM EST Imaging from [facility] received and in eD-H. Provider notified. * [...] the imaging is scheduled for tomorrow at [facility]. Patient states that he is going to try to get in today, 05/01 if possible. Patient states that to have the study performed, he had to complete a covid test and that [facility] told him that they need an order for this test from our office. Patient advised that [facility] send a message to the nurse. * Telephone Encounter - Bela Fraser - 03/29/2021 2:39 PM EST Call placed to patient to see if he would like to have CT Head and Neck performed at [facility]. Patient advises that he would like this performed at [facility]. Note to provider and RN to enter orders. documented in this encounter Plan of Treatment Upcoming Encounters Date Type Department Care Team (Late st Contact Info) Description 03/24/2024 9:00 AM EST TH Visit (TeleHealth) Radiation Oncology at [address] [phone] Ping Moore PA [facility] DR [place] [address] 03/26/2024 9:30 AM EST Office Visit Hematology/Oncology at [address] [phone] Yessi Renee, [address] HEMATOLOGY AND ONCOLOGY [place], [place] [address] 03/26/2024 9:30 AM EST Infusion Hematology Oncology at [address] [phone] 04/09/2024 9:30 AM EST Office Visit Hematology/Oncology at [address] [phone] Cl Hess MD [facility] [address] [address] HEMATOLOGY AND ONCOLOGY [place], [place] [phone] 04/09/2024 10:00 AM EST Infusion Hematology Oncology at [address] [phone] 04/23/2024 9:30 AM EST Office Visit Hematology/Oncology at [address] [phone] Cl Hess MD [facility] [address] [address] HEMATOLOGY AND ONCOLOGY [place], [place] [address] 04/23/2024 10:00 AM EST Infusion Hematology Oncology at [address] [phone] 05/18/2024 4:30 PM EDT TH Visit (TeleHealth) [place] [address] Malachi Rothman MD [facility] [place] [address] documented as of this encounter Visit Diagnoses Diagnosis Stenosis of carotid artery, unspecified laterality Pre-procedure lab exam Pre-procedural laboratory examination documented in this encounter Care Teams Tire Balancer Relationship Specialty Start Date End Date Alo Carey DO [address] [place] [address] [place] [address] PCP - General Internal Medicine 08/31/20 07/03/23 documented as of this encounter
--- OUTSIDE RECORDS SUMMARY | 2024-03-12 10:59 | XMS_ITS | Encounter Summary ---
[place] [address] Care Team Providers Care Operations Executive Name Role Phone Alo Carey Primary Care Provider [phone] Encounter Details Date Type Department Care Team (Late st Contact Info) Description 06/02/2021 Orders Only Radiation Oncology at [address] [phone] Bigg Peters MD [address] [place] [address] DR [place] [address] Social History Tobacco Use Types [...] TH Visit (TeleHealth) Radiation Oncology at [address] [phone] Ping Moore PA [facility] HEMATOLOGY [place] [address] 03/26/2024 9:30 AM EST Office Visit Hematology/Oncology at [address] [phone] [address] HEMATOLOGY AND ONCOLOGY [place], [place] [phone] 03/26/2024 9:30 AM EST Infusion Hematology Oncology at [address] [phone] 04/09/2024 9:30 AM EST Office Visit Hematology/Oncology at [address] [phone] Cl Hess MD [facility] [place] [address] [address] HEMATOLOGY AND ONCOLOGY [place], [place] [phone] 04/09/2024 10:00 AM EST Infusion Hematology Oncology at [address] [phone] 04/23/2024 9:30 AM EST Office Visit Hematology/Oncology at [address] [phone] Cl Hess MD [facility] [place] [address] [address] HEMATOLOGY AND ONCOLOGY [place], [place] [phone] 04/23/2024 10:00 AM EST Infusion Hematology Oncology at [address] [phone] 05/18/2024 4:30 PM EDT TH Visit (TeleHealth) [place] [address] Malachi Rothman MD [facility] [place] [address] documented as of this encounter Visit Diagnoses Not on filedocumented in this encounter Care Teams Operations Executive Relationship Specialty Start Date End Date Alo Carey DO [address] [place] [address] [place] [address] PCP - General Internal Medicine 08/31/20 07/03/23 documented as of this encounter
--- OUTSIDE RECORDS SUMMARY | 2024-03-12 10:59 | XMS_ITS | Encounter Summary ---
[place] [address] Care Team Providers Care Dobie Man Name Role Phone YungAlo santiago Primary Care Provider [phone] Encounter Details Date Type Department Care Team (Late st Contact Info) Description 04/28/2021 Telephone Primary Care at [facility] [address] [place] [address] Jacquelyn Hines RN Social History Tobacco Use [...] home for Covid PCR and sending to DH MD's referred to Doctor at [facility] for the numbers and orders needed to complete the task. documented in this encounter Plan of Treatment Upcoming Encounters Date Type Department Care Team (Late st Contact Info) Description 03/24/2024 9:00 AM EST TH Visit (TeleHealth) Radiation Oncology at [address] [phone] Ping Moore PA [facility] [place] [address] 03/26/2024 9:30 AM EST Office Visit Hematology/Oncology at [address] [phone] [address] HEMATOLOGY AND ONCOLOGY [place], [place] [phone] 03/26/2024 9:30 AM EST Infusion Hematology Oncology at [address] [phone] 04/09/2024 9:30 AM EST Office Visit Hematology/Oncology at [address] [phone] Cl Hess MD [facility] [place] [address] [address] HEMATOLOGY [place] [address] 04/09/2024 10:00 AM EST Infusion Hematology Oncology at [address] [phone] 04/23/2024 9:30 AM EST Office Visit Hematology/Oncology at [address] [phone] Cl Hess MD [facility] [place] [address] Yessi Renee APRN [address] [place] [address] DR HEMATOLOGY [place] [address] 04/23/2024 10:00 AM EST Infusion Hematology Oncology at [address] [phone] 05/18/2024 4:30 PM EDT TH Visit (TeleHealth) [place] [address] Malachi Rothman MD [facility] [place] [address] documented as of this encounter Visit Diagnoses Not on filedocumented in this encounter Care Teams Dobie Man Relationship Specialty Start Date End Date Alo Carey DO [address] [place] [address] [place] [address] PCP - General Internal Medicine 08/31/20 07/03/23 documented as of this encounter
--- OUTSIDE RECORDS SUMMARY | 2024-03-12 10:59 | XMS_ITS | Encounter Summary ---
Author Organization [facility] [place] [address] Care Team Providers Care Community Relations Specialist Name Role Phone Alo Carey DO Primary Care Provider [phone] Reason for Visit * Consultation (Urgent) - Closed Specialty Diagnoses / Procedures Referred By Marques livingston Referred To Contact Vascular Surgery Diagnoses Carotid artery stenosis, symptomatic, right Pedro Mai MD [facility] [place] [address] [facility] Vascular Surg [address] [place] [address] Referral ID Status Reason Start Date Expiration Date V isits Requested Visits Authorized [id number] Closed Consult, Test & Treat 05/05/2021 05/05/2022 1 1 Encounter Details Date Type Department Care Team (Late st Contact Info) Description 05/23/2021 2:00 PM EDT Office [place] [address] Basim Barr MD [facility] [place] [address] Stenosis of carotid artery, unspecified laterality Social [...] ICA stenosis following CEA. Outside CTA from [facility] reviewed and shows a high grade right ICA stenosis and a moderate right petrous and cavernous stenoses. His last ischemic event was 11/2019 when he had ocular event. Note from Vascular surgeon in [place] who did his R CEA I believe [...] procedure at [facility] in [place]: shaking Has tolerated MRI [...] TH Visit (TeleHealth) Radiation Oncology at [address] [phone] Ping Moore PA [facility] [place] [address] 03/26/2024 9:30 AM EST Office Visit Hematology/Oncology at [address] [phone] Yessi Renee APRN [address] [place] [address] DR HEMATOLOGY AND ONCOLOGY [place], [place] [phone] 03/26/2024 9:30 AM EST Infusion Hematology Oncology at [address] [phone] 04/09/2024 9:30 AM EST Office Visit Hematology/Oncology at [address] [phone] Cl Hess MD [facility] [place] [address] [address] HEMATOLOGY [place] [address] 04/09/2024 10:00 AM EST Infusion Hematology Oncology at [address] [phone] 04/23/2024 9:30 AM EST Office Visit Hematology/Oncology at [address] [phone] Cl Hess MD [facility] [place] [address] [address] HEMATOLOGY [place] [address] 04/23/2024 10:00 AM EST Infusion Hematology Oncology at [address] [phone] 05/18/2024 4:30 PM EDT TH Visit (TeleHealth) [place] [address] Malachi Rothman MD [facility] [place] [address] Scheduled Referrals Name Type Priority Associated Diagnoses Orde r Schedule Referral to Vascular Surgery Outpatient Referral Routine Carotid artery stenosis, symptomatic, right Ordered: 05/05/2021 documented as of this encounter Visit Diagnoses Diagnosis Stenosis of carotid artery, unspecified laterality documented in this encounter Care Teams Community Relations Specialist Relationship Specialty Start Date End Date Alo Carey DO [address] [place] [address] [place] [address] PCP - General Internal Medicine 08/31/20 07/03/23 documented as of this encounter
--- OUTSIDE RECORDS SUMMARY | 2024-03-12 10:59 | XMS_ITS | Encounter Summary ---
[place] [address] Care Team Providers Care Geophysical Operator Name Role Phone Alo Carey Primary Care Provider [phone] Encounter Details Date Type Department Care Team (Late st Contact Info) Description 04/26/2021 2:30 PM EST Office Visit Radiation Oncology at [address] [phone] Bigg Peters MD [address] [place] [address] [place] [address] Malignant neoplasm of prostate Social [...] Patient Followup Note Bigg Peters MD, MS [facility] Patient Identification: Wero Sadler is [...] TH Visit (TeleHealth) Radiation Oncology at [address] [phone] [facility] DR HEMATOLOGY [place] [address] 03/26/2024 9:30 AM EST Office Visit Hematology/Oncology at [address] [phone] [address] HEMATOLOGY AND ONCOLOGY [place], [place] [phone] 03/26/2024 9:30 AM EST Infusion Hematology Oncology at [address] [phone] 04/09/2024 9:30 AM EST Office Visit Hematology/Oncology at [address] [phone] [facility] [place] [address] [address] HEMATOLOGY AND ONCOLOGY [place], [place] [phone] 04/09/2024 10:00 AM EST Infusion Hematology Oncology at [address] [phone] 04/23/2024 9:30 AM EST Office Visit Hematology/Oncology at [address] [phone] [facility] [address] [place] [address] Yessi Renee APRN [address] [place] [address] DR [place] [address] 04/23/2024 10:00 AM EST Infusion Hematology Oncology at [address] [phone] 05/18/2024 4:30 PM EDT TH Visit (TeleHealth) [place] [address] [facility] [place] [address] documented as of this encounter Visit Diagnoses Diagnosis Malignant neoplasm of prostate documented in this encounter Care Teams Geophysical Operator Relationship Specialty Start Date End Date Alo Carey DO [address] [place] [address] [place] [address] PCP - General Internal Medicine 08/31/20 07/03/23 documented as of this encounter
--- OUTSIDE RECORDS SUMMARY | 2024-03-12 10:59 | XMS_ITS | Encounter Summary ---
[place] [address] Care Team Providers Care Site Lead Name Role Phone Alo Carey DO Primary Care Provider [phone] Encounter Details Date Type Department Care Team (Late st Contact Info) Description 06/12/2021 Orders [place] [phone] Marva Moura, RN Stenosis of carotid artery, [...] TH Visit (TeleHealth) Radiation Oncology at [address] [phone] Ping Moore PA [facility] DR HEMATOLOGY [place] [address] 03/26/2024 9:30 AM EST Office Visit Hematology/Oncology at [address] [phone] [address] HEMATOLOGY AND ONCOLOGY [place], [place] [address] 03/26/2024 9:30 AM EST Infusion Hematology Oncology at [address] [phone] 04/09/2024 9:30 AM EST Office Visit Hematology/Oncology at [address] [phone] Cl Hess MD [facility] [address] [address] HEMATOLOGY AND ONCOLOGY [place], [place] [address] 04/09/2024 10:00 AM EST Infusion Hematology Oncology at [address] [phone] 04/23/2024 9:30 AM EST Office Visit Hematology/Oncology at [address] [phone] Cl Hess MD [facility] [place] [address] [address] HEMATOLOGY AND ONCOLOGY [place], [place] [address] 04/23/2024 10:00 AM EST Infusion Hematology Oncology at [address] [address] 05/18/2024 4:30 PM EDT TH Visit (TeleHealth) [place] [phone] Malachi Rothman MD [facility] [place] [address] documented as of this encounter Results * [...] MD CHEMISTRY ORDERABLES [facility] [place] [address] * (ABNORMAL) Basic Metabolic Panel (non-fasting) (07/14/2021 [...] MD CHEMISTRY ORDERABLES [facility] [place] [address] * (ABNORMAL) Hemogram (07/14/2021 7:16 AM EDT) White Blood Cell 7.4 4.0 - 9.5 x10(3)/mc L [facility] Red Blood Cell 4.15(L) 4.58 - 5.54 x10(6)/mc L [facility] Hemoglobin 13.0(L) [...] Platelet 234 145 - 357 x10(3)/mc L [facility] RDW Standard Deviation 46.5(H) 36.0 - 45.0 fL [facility] RDW coefficient of variation 13.4 11.4 - 13.8 % [facility] Mean Platelet Volume 9.9 7.6 - 12.9 fL [facility] NRBC% auto 0.0 % [facility] NRBC Absolute 0.000 0.000 - 0.000 x10(3)/mc L [facility] Blood 07/14/2021 7:16 AM EDT 07/14/2021 7:20 AM EDT Narrative Resulting Agency Comment Spec In Lab Basim Barr MD HEMATOLOGY ORDERABLE S Performing Organization Address City/State/[facility] Co de Phone Number [facility] [place] [address] documented in this encounter Visit Diagnoses Diagnosis Stenosis of carotid artery, unspecified laterality Pre-op testing Preoperative examination, unspecified documented in this encounter Care Teams Site Lead Relationship Specialty Start Date End Date Alo Carey DO [address] [place] [address] [place] [address] PCP - General Internal Medicine 08/31/20 07/03/23 documented as of this encounter
--- OUTSIDE RECORDS SUMMARY | 2024-03-12 10:59 | XMS_ITS | Encounter Summary ---
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 Dilation [...] to patient: You must have a responsible democrat who will drive you to your procedure, [...] TH Visit (TeleHealth) Radiation Oncology at [address] [phone] Ping Moore PA [facility] [place] [address] 03/26/2024 9:30 AM EST Office Visit Hematology/Oncology at [address] [phone] [address] [place] [address] 03/26/2024 9:30 AM EST Infusion Hematology Oncology at [address] [phone] 04/09/2024 9:30 AM EST Office Visit Hematology/Oncology at [address] [phone] Cl Hess MD [facility] [place] [address] [address] HEMATOLOGY AND ONCOLOGY [place], [place] [address] 04/09/2024 10:00 AM EST Infusion Hematology Oncology at [address] [phone] 04/23/2024 9:30 AM EST Office Visit Hematology/Oncology at [address] [phone] Cl Hess MD [facility] [place] [address] Yessi Renee [address] [place] [address] 04/23/2024 10:00 AM EST Infusion Hematology Oncology at [address] [phone] 05/18/2024 4:30 PM EDT TH Visit (TeleHealth) [place] [address] Malachi Rothman MD [facility] [place] [address] documented as of this encounter Visit Diagnoses Not on filedocumented in this encounter Care Teams Cardiac Technician Relationship Specialty Start Date End Date Alo Carey DO [address] [place] [address] [place] [address] PCP - General Internal Medicine 08/31/20 07/03/23 documented as of this encounter
--- OUTSIDE RECORDS SUMMARY | 2024-03-12 10:59 | XMS_ITS | Encounter Summary ---
[place] [address] Care Team Providers Care Keyboarding Teacher Name Role Phone Alo Carey DO Primary Care Provider [phone] Encounter Details Date Type Department Care Team (Late st Contact Info) Description 05/04/2021 11:00 AM EST [place] [address] Social History Tobacco Use Types [...] TH Visit (TeleHealth) Radiation Oncology at [address] [phone] Ping Moore PA [facility] DR HEMATOLOGY [place] [address] 03/26/2024 9:30 AM EST Office Visit Hematology/Oncology at [address] [phone] [address] HEMATOLOGY AND ONCOLOGY [place], [place] [address] 03/26/2024 9:30 AM EST Infusion Hematology Oncology at [address] [phone] 04/09/2024 9:30 AM EST Office Visit Hematology/Oncology at [address] [phone] Cl Hess MD [facility] [place] [address] [address] HEMATOLOGY AND ONCOLOGY [place], [place] [address] 04/09/2024 10:00 AM EST Infusion Hematology Oncology at [address] [phone] 04/23/2024 9:30 AM EST Office Visit Hematology/Oncology at [address] [phone] Cl Hess MD [facility] [address] [address] HEMATOLOGY AND ONCOLOGY [place], [place] [address] 04/23/2024 10:00 AM EST Infusion Hematology Oncology at [address] [phone] 05/18/2024 4:30 PM EDT TH Visit (TeleHealth) [place] [address] Malachi Rothman MD [facility] [place] [address] documented as of this encounter Visit Diagnoses Not on filedocumented in this encounter Care Teams Keyboarding Teacher Relationship Specialty Start Date End Date Alo Carey DO [address] [place] [address] [place] [address] PCP - General Internal Medicine 08/31/20 07/03/23 documented as of this encounter
--- OUTSIDE RECORDS SUMMARY | 2024-03-12 10:59 | XMS_ITS | Encounter Summary ---
[place] [address] Care Team Providers Care Atmospheric Sciences Professor Name Role Phone Alo Carey DO Primary Care Provider [phone] Encounter Details Date Type Department Care Team (Late st Contact Info) Description 06/15/2021 Telephone [place] [phone] Leah Cabrera Social History Tobacco Use Types [...] TH Visit (TeleHealth) Radiation Oncology at [address] [phone] Ping Moore PA [facility] HEMATOLOGY [place] [address] 03/26/2024 9:30 AM EST Office Visit Hematology/Oncology at [address] [phone] [address] HEMATOLOGY AND ONCOLOGY [place], [place] [address] 03/26/2024 9:30 AM EST Infusion Hematology Oncology at [address] [phone] 04/09/2024 9:30 AM EST Office Visit Hematology/Oncology at [address] [phone] Cl Hess MD [facility] [place] [address] [address] HEMATOLOGY AND ONCOLOGY [place], [place] [phone] 04/09/2024 10:00 AM EST Infusion Hematology Oncology at [address] [phone] 04/23/2024 9:30 AM EST Office Visit Hematology/Oncology at [address] [phone] Cl Hess MD [facility] [place] [address] [address] HEMATOLOGY AND ONCOLOGY [place] [address] 04/23/2024 10:00 AM EST Infusion Hematology Oncology at [address] [phone] 05/18/2024 4:30 PM EDT TH Visit (TeleHealth) [place]iation [place] [address] Malachi Rothman MD [facility] [place] [address] documented as of this encounter Visit Diagnoses Not on filedocumented in this encounter Care Teams Atmospheric Sciences Professor Relationship Specialty Start Date End Date Alo Carey DO [address] [place] [address] [place] [address] PCP - General Internal Medicine 08/31/20 07/03/23 documented as of this encounter
--- OUTSIDE RECORDS SUMMARY | 2024-03-12 10:59 | XMS_ITS | Encounter Summary ---
[place] [address] Care Team Providers Care Steel Post Installer Name Role Phone Alo Carey DO Primary Care Provider [phone] Reason for Referral * Diagnostic Test (Routine) - Closed Specialty Diagnoses / Procedures Referred By Marques livingston Referred To Contact Radiology Diagnoses Malignant neoplasm of prostate Procedures MRI Pelvis wo (Prostate) Bigg Petesr MD [address] [place] [address] [place] [address] [place] [address] Referral ID Status Reason Start Date Expiration Date V isits Requested Visits Authorized [id number] Closed Specialty Service Requested 04/11/2021 10/09/2022 1 1 Encounter Details Date Type Department Care Team (Late st Contact Info) Description 04/11/2021 Orders Only Radiation Oncology at [address] [phone] Bigg Peters MD [address] [place] [address] DR RADIATION ONCOLOGY [place], [place] [phone] Malignant neoplasm of prostate Social History Tobacco [...] TH Visit (TeleHealth) Radiation Oncology at [address] [phone] Ping Moore PA [facility] HEMATOLOGY [place] [address] 03/26/2024 9:30 AM EST Office Visit Hematology/Oncology at [address] [phone] [address] HEMATOLOGY AND ONCOLOGY [place], [place] [phone] 03/26/2024 9:30 AM EST Infusion Hematology Oncology at [address] [phone] 04/09/2024 9:30 AM EST Office Visit Hematology/Oncology at [address] [phone] Cl Hess MD [facility] [place] [address] Yess[address] Renee [address] HEMATOLOGY AND ONCOLOGY [place], [place] [phone] 04/09/2024 10:00 AM EST Infusion Hematology Oncology at [address] [phone] 04/23/2024 9:30 AM EST Office Visit Hematology/Oncology at [address] [phone] Cl Hess MD [facility] [place] [address] Yessi Renee APRN [address] [place] [address] DR HEMATOLOGY AND ONCOLOGY [place] [phone] 04/23/2024 10:00 AM EST Infusion Hematology Oncology at [address] [phone] 05/18/2024 4:30 PM EDT TH Visit (TeleHealth) [place] [address] Malachi Rothman MD [facility] [place] [address] documented as of this encounter Results * [...] have questions please contact the health career portals teacher that requested your imaging first. ? Narrative 07/12/2021 5:26 PM EDT EXAMINATION: MRI [...] who have questions please contactthe health career portals teacher that requested your imaging first. Bigg Peters MD Rk MRI ORDERABLES documented in this encounter Visit Diagnoses Diagnosis Malignant neoplasm of prostate Malignant neoplasm of prostate documented in this encounter Care Teams Steel Post Installer Relationship Specialty Start Date End Date Alo Carey DO [address] [place] [address] [place] [phone] PCP - General Internal Medicine 08/31/20 07/03/23 documented as of this encounter
--- OUTSIDE RECORDS SUMMARY | 2024-03-12 10:59 | XMS_ITS | Encounter Summary ---
[place] [address] Care Team Providers Care Plan Nurse Name Role Phone Alo Carey DO Primary Care Provider [phone] Reason for Visit * Consultation (Routine) - Closed Specialty Diagnoses / Procedures Referred By Marques livingston Referred To Contact Gastroenterology Diagnoses Other specified diseases of pancreas Procedures Consult Alo Carey DO [address] [place] [address] [facility] [address] [place] [address] Referral ID Status Reason Start Date Expiration Date Visits Re quested Visits Authorized [id number] Closed 02/10/2021 02/10/2022 1 1 Encounter Details Date Type Department Care Team (Latest Contact Info) Description 04/04/2021 10:30 AM EST TH Visit (TeleHealth) [place] [address] Shruti Rao PA [facility] [place] [address] Pancreatic abnormality Social History Tobacco Use Types [...] diagnosed in June 2020 while living in [place] He has been on Plavix for years [...] Carotid endarterectomy; joint replacement; Total Hip Arthroplasty (70969) (Left, 10/10/2020); and Laser V aporization Surgery Prostate, Complete (97561) (Midline, 02/02/2021). Family History: denies family history [...] consultation for abnormal imaging. While living in [place] he was diagnosed with prostate cancer. After moving back to [place] he discussed this with his PCP who [...] EUS if indicated. He is leaving for [place] on Saturday but will be home at [...] is approximately 0.08% to 0.6%. All of Wero Sadler questions were answered today. CASA Chapman [facility] [place] [address] documented in this encounter Plan of Treatment Upcoming Encounters Date Type Department Care Team (Late st Contact Info) Description 03/24/2024 9:00 AM EST TH Visit (TeleHealth) Radiation Oncology at [address] [phone] Ping Moore PA [facility] HEMATOLOGY AND [place] [address] 03/26/2024 9:30 AM EST Office Visit Hematology/Oncology at [address] [phone] Yessi Renee [address] HEMATOLOGY AND ONCOLOGY [place], [place] [phone] 03/26/2024 9:30 AM EST Infusion Hematology Oncology at [address] [phone] 04/09/2024 9:30 AM EST Office Visit Hematology/Oncology at [address] [phone] Cl Hess MD [facility] [place] [address] Y[address] HEMATOLOGY [place] [address] 04/09/2024 10:00 AM EST Infusion Hematology Oncology at [address] [phone] 04/23/2024 9:30 AM EST Office Visit Hematology/Oncology at [address] [phone] Cl Hess MD [facility] [place] [address] [address] HEMATOLOGY [place] [address] 04/23/2024 10:00 AM EST Infusion Hematology Oncology at [address] [phone] 05/18/2024 4:30 PM EDT TH Visit (TeleHealth) [place] [address] Malachi Rothman MD [facility] [place] [address] documented as of this encounter Visit Diagnoses Diagnosis Pancreatic abnormality documented in this encounter Care Teams Plan Nurse Relationship Specialty Start Date End Date Alo Carey DO [address] [place] [address] [place] [address] PCP - General Internal Medicine 08/31/20 07/03/23 documented as of this encounter
--- OUTSIDE RECORDS SUMMARY | 2024-03-12 10:59 | XMS_ITS | Encounter Summary ---
Author Organization [facility] [place] [address] Care Team Providers Care Repair Electric Motor Assembler Name Role Phone Alo Carey DO Primary Care Provider Encounter Details Date Type Department Care Team (Latest Contact Info) Description 05/04/2021 10:00 AM EST Office [place] [address] Ismael Wu MD [facility] [place] [address] Primary osteoarthritis of right hip Social History [...] where referrals are placed patient lives in [place], no preference on [place]. Prep for Surgery [...] Pending Note Post operative orthopaedic anti-coagulation plan: PEPPER Ronan Chronic anti-coagulation: yes, preventative Does patient have [...] TH Visit (TeleHealth) Radiation Oncology at [address] [phone] Ping Moore PA [facility] DR [place] [address] 03/26/2024 9:30 AM EST Office Visit Hematology/Oncology at [address] [phone] Yessi Renee APRN [address] [place] [address] DR HEMATOLOGY AND ONCOLOGY [place], [place] [address] 03/26/2024 9:30 AM EST Infusion Hematology Oncology at [address] [phone] 04/09/2024 9:30 AM EST Office Visit Hematology/Oncology at [address] [phone] Cl Hess MD [facility] [place] [address] [address] HEMATOLOGY AND ONCOLOGY [place], [place] [address] 04/09/2024 10:00 AM EST Infusion Hematology Oncology at [address] [phone] 04/23/2024 9:30 AM EST Office Visit Hematology/Oncology at [address] [phone] Cl Hess MD [facility] [place] [address] [address] HEMATOLOGY AND ONCOLOGY [place], [place] [address] 04/23/2024 10:00 AM EST Infusion Hematology Oncology at [address] [phone] 05/18/2024 4:30 PM EDT TH Visit (TeleHealth) [place] [address] Malachi Rothman MD [facility] [place] [address] documented as of this encounter Visit Diagnoses Diagnosis Primary osteoarthritis of right hip Primary localized osteoarthrosis, pelvic region and thigh documented in this encounter Administered Medications Inactive Administered Medications - up to 3 most recent administrations Medication Order MAR Action Action Date Dose Rate Site mupirocin (Bactroban) 2 % ointment 1 each 1 each, Topical (Top), 2 TIMES DAILY, First dose on Sat05/04/21 at 1130, 10 doses, Last dose on Sat05/08/21 at 2100, Apply two times daily to nares for 5 days prior to surgery Given 05/04/2021 11:11 AM EST 1 each documented in this encounter Care Teams Repair Electric Motor Assembler Relationship Specialty Start Date End Date Alo Carey DO [address] [place] [address] [place] [address] PCP - General Internal Medicine 08/31/20 07/03/23 documented as of this encounter
--- OUTSIDE RECORDS SUMMARY | 2024-03-12 10:59 | XMS_ITS | Encounter Summary ---
[place] [address] Care Team Providers Care Barrel Header Name Role Phone YungAlo santiago Primary Care Provider [phone] Encounter Details Date Type Department Care Team (Late st Contact Info) Description 05/05/2021 [place] [address] Kushal Aceves MD [facility] [place] [address] Social History Tobacco Use Types Packs/Day Years [...] 05/05/2021 12:17 AM EST Outside CTA from [facility] reviewed and shows a high grade right ICA stenosis and a moderate right petrous and cavernous stenoses. His last ischemic event was 11/2019 when he had ocular event. Note from Vascular surgeon in [place] who did his R CEA I believe [...] TH Visit (TeleHealth) Radiation Oncology at [address] [phone] Ping Moore PA [facility] HEMATOLOGY [place] [address] 03/26/2024 9:30 AM EST Office Visit Hematology/Oncology at [address] [phone] Yessi Renee APRN [address] [place] [address] DR HEMATOLOGY AND ONCOLOGY [place], [place] [phone] 03/26/2024 9:30 AM EST Infusion Hematology Oncology at [address] [phone] 04/09/2024 9:30 AM EST Office Visit Hematology/Oncology at [address] [phone] Cl Hess MD [facility] [place] [address] Yessi Renee, [address] HEMATOLOGY AND ONCOLOGY [place], [place] [address] 04/09/2024 10:00 AM EST Infusion Hematology Oncology at [address] [phone] 04/23/2024 9:30 AM EST Office Visit Hematology/Oncology at [address] [phone] Cl Hess MD [facility] [place] [place] [address] Yessi Renee, [address] HEMATOLOGY [place] [address] 04/23/2024 10:00 AM EST Infusion Hematology Oncology at [address] [phone] 05/18/2024 4:30 PM EDT TH Visit (TeleHealth) [place] [address] Malachi Rothman MD [facility] [place] [address] documented as of this encounter Visit Diagnoses Not on filedocumented in this encounter Care Teams Barrel Header Relationship Specialty Start Date End Date Alo Carey DO [address] [place] [address] [place] [address] PCP - General Internal Medicine 08/31/20 07/03/23 documented as of this encounter
--- OUTSIDE RECORDS SUMMARY | 2024-03-12 10:59 | XMS_ITS | Encounter Summary ---
[place] [address] Care Team Providers Care Parking Assistant Name Role Phone Alo Carey DO Primary Care Provider [phone] Reason for Referral * Consultation (Routine) - Closed Specialty Diagnoses / Procedures Referred By Marques livingston Referred To Contact Radiation Oncology Diagnoses Malignant neoplasm of prostate Procedures Simulation for Radiation Therapy Planning Bigg Peters MD [address] [place] [address] [place] [address] [facility] [place] [address] Referral ID Status Reason Start Date Expiration Date V isits Requested Visits Authorized [id number] Closed Consult, Test & Treat 07/11/2021 09/30/2021 29 29 Encounter Details Date Type Department Care Team (Late st Contact Info) Description 04/04/2021 Orders Only Radiation Oncology at [address] [phone] Bigg Peters MD [address] [place] [address] DR RADIATION ONCOLOGY [place], [place] [phone] Malignant neoplasm of prostate Social History Tobacco [...] TH Visit (TeleHealth) Radiation Oncology at [address] [phone] Ping Moore PA [facility] [place] [address] 03/26/2024 9:30 AM EST Office Visit Hematology/Oncology at [address] [phone] Yessi Renee [address] HEMATOLOGY AND ONCOLOGY [place], [place] [phone] 03/26/2024 9:30 AM EST Infusion Hematology Oncology at [address] [phone] 04/09/2024 9:30 AM EST Office Visit Hematology/Oncology at [address] [phone] Cl Hess MD [facility] [place] [address] Yessi Renee [address] HEMATOLOGY AND ONCOLOGY [place], [place] [phone] 04/09/2024 10:00 AM EST Infusion Hematology Oncology at [address] [phone] 04/23/2024 9:30 AM EST Office Visit Hematology/Oncology at [address] [phone] Cl Hess MD [facility] [place] [address] Yessi Renee APRN [address] [place] [address] DR [place] [address] 04/23/2024 10:00 AM EST Infusion Hematology Oncology at [address] [phone] 05/18/2024 4:30 PM EDT TH Visit (TeleHealth) [place] [address] Malachi Rothman MD [facility] [place] [address] Scheduled Orders Name Type Priority Associated Diagnoses Orde r Schedule Simulation for Radiation Therapy Planning Procedures Routine Malignant neoplasm of prostate Ordered: 04/04/2021 documented as of this encounter Visit Diagnoses Diagnosis Malignant neoplasm of prostate documented in this encounter Care Teams Parking Assistant Relationship Specialty Start Date End Date Alo Carey DO [address] [place] [address] [place] [address] PCP - General Internal Medicine 08/31/20 07/03/23 documented as of this encounter
--- OUTSIDE RECORDS SUMMARY | 2024-03-12 10:59 | XMS_ITS | Encounter Summary ---
Author Organization [facility] [place] [address] Care Team Providers Care Electronics System Mechanic Name Role Phone Alo Carey DO Primary Care Provider [phone] Encounter Details Date Type Department Care Team [...] TH Visit (TeleHealth) Radiation Oncology at [address] [phone] Ping Moore PA [facility] [place]ATOLOG[place] [address] 03/26/2024 9:30 AM EST Office Visit Hematology/Oncology at [address] [phone] [address] HEMATOLOGY AND ONCOLOGY [place], [place] [address] [phone] 03/26/2024 9:30 AM EST Infusion Hematology Oncology at [address] [phone] 04/09/2024 9:30 AM EST Office Visit Hematology/Oncology at [address] [phone] Cl Hess MD [facility] [place] [address] [address] HEMATOLOGY AND ONCOLOGY [place], [place] [address] 04/09/2024 10:00 AM EST Infusion Hematology Oncology at [address] [phone] 04/23/2024 9:30 AM EST Office Visit Hematology/Oncology at [address] [phone] Cl Hess MD [facility] [place] [address] Yessi Renee [address] [place] [address] 04/23/2024 10:00 AM EST Infusion Hematology Oncology at [address] [phone] 05/18/2024 4:30 PM EDT TH Visit (TeleHealth) [place] [address] Malachi Rothman MD [facility] [place] [address] documented as of this encounter Visit Diagnoses Not on filedocumented in this encounter Care Teams Electronics System Mechanic Relationship Specialty Start Date End Date Alo Carey DO [address] [place] [address] [place] [address] PCP - General Internal Medicine 08/31/20 07/03/23 documented as of this encounter
--- OUTSIDE RECORDS SUMMARY | 2024-03-12 10:59 | XMS_ITS | Encounter Summary ---
[place] [address] Care Team Providers Care Night Assistant Name Role Phone YungAlo santiago Primary Care Provider [phone] Encounter Details Date Type Department Care Team (Late st Contact Info) Description 03/29/2021 Telephone Hematology Oncology at [address] [phone] Leida Watters RN Social History [...] PM EST [facility]. Review of chart suggests that he is receivingthese at Dr. Myers's office. Telephone call to patient to clarify. He reports that he is receiving Lupron at Dr. Myers's office, is scheduled to get one tomorrow at 8 AM there. States that he is getting a 3 month (22.5mg) dose tomorrow. Will cancel future infusion appts for Lup[facility] at [facility]. documented in this encounter Plan of Treatment Upcoming Encounters Date Type Department Care Team (Late st Contact Info) Description 03/24/2024 9:00 AM EST TH Visit (TeleHealth) Radiation Oncology at [address] [phone] Ping Moore PA [facility] HEMATOLOGY [place] [address] 03/26/2024 9:30 AM EST Office Visit Hematology/Oncology at [address] [phone] [address] HEMATOLOGY AND [place]OGY [place] [phone] 03/26/2024 9:30 AM EST Infusion Hematology Oncology at [address] [phone] 04/09/2024 9:30 AM EST Office Visit Hematology/Oncology at [address] [phone] Cl Hess MD [facility] [place] [address] [place] [address] 04/09/2024 10:00 AM EST Infusion Hematology Oncology at [address] [phone] 04/23/2024 9:30 AM EST Office Visit Hematology/Oncology at [address] [phone] Cl Hess MD [facility] [place] [place] [address] Yessi Renee APRN [address] [place] [address] [place] [address] 04/23/2024 10:00 AM EST Infusion Hematology Oncology at [address] [phone] 05/18/2024 4:30 PM EDT TH Visit (TeleHealth) [place] [address] Malachi Rothman MD [facility] [place] [address] documented as of this encounter Visit Diagnoses Not on filedocumented in this encounter Care Teams Night Assistant Relationship Specialty Start Date End Date Alo Carey DO [address] [place] [address] [place] [address] PCP - General Internal Medicine 08/31/20 07/03/23 documented as of this encounter
--- OUTSIDE RECORDS SUMMARY | 2024-03-12 10:59 | XMS_ITS | Encounter Summary ---
Author Organization [facility] [place] [address] Care Team Providers Care Business Consult Name Role Phone Alo Carey DO Primary Care Provider [phone] Encounter Details Date Type Department Care Team (Latest Contact Info) Description 03/22/2021 2:00 PM EST TH Visit (TeleHealth) [place] [address] Cayetano Engle MD [facility] [place] [address] Benign prostatic hyperplasia, unspecified whether lower urinary [...] Engle MD - 03/22/2021 2:00 PM EST [facility] SECTION OF UROLOGY POSTOPERATIVE TELEPHONE VISIT Called [...] at that time by his urologist in [place]. MRI ordered due to PSA velocity and [...] Postop Patient seen with clot retention at [facility] and required cysto clot evacuation with Dr. [...] above. Cayetano Engle MD Section of Urology [facility] Office: [phone] I spent 15 minutes reviewing the patient's diagnostic tests, speaking with the patient, and documenting in the record. documented in this encounter Plan of Treatment Upcoming Encounters Date Type Department Care Team (Late st Contact Info) Description 03/24/2024 9:00 AM EST TH Visit (TeleHealth) Radiation Oncology at [address] [phone] Ping Moore PA [facility] [place] [address] 03/26/2024 9:30 AM EST Office Visit Hematology/Oncology at [address] [phone] [address] HEMATOLOGY AND ONCOLOGY [place], [place] [phone] 03/26/2024 9:30 AM EST Infusion Hematology Oncology at [address] [phone] 04/09/2024 9:30 AM EST Office Visit Hematology/Oncology at [address] [phone] Cl Hess MD [facility] [place] [address] Yessi Renee [address] HEMATOLOGY AND ONCOLOGY [place], [place] [phone] 04/09/2024 10:00 AM EST Infusion Hematology Oncology at [address] [phone] 04/23/2024 9:30 AM EST Office Visit Hematology/Oncology at [address] [phone] Cl Hess MD [facility] [place] [address] Yessi Renee APRN [address] [place] [address] DR [place] [address] 04/23/2024 10:00 AM EST Infusion Hematology Oncology at [address] [phone] 05/18/2024 4:30 PM EDT TH Visit (TeleHealth) [place] [address] Malachi Rothman MD [facility] [place] [address] documented as of this encounter Visit Diagnoses Diagnosis Benign prostatic hyperplasia, unspecified whether lower urinary tract symptoms present documented in this encounter Care Teams Business Consult Relationship Specialty Start Date End Date Alo Carey DO [address] [place] [address] [place] [address] PCP - General Internal Medicine 08/31/20 07/03/23 documented as of this encounter
--- OUTSIDE RECORDS SUMMARY | 2024-03-12 10:59 | XMS_ITS | Encounter Summary ---
Author Organization Counts Include [facility] [address] Care Team Providers Care Line Supply Name Role Phone Alo Carey Primary Care Provider [phone] Encounter Details Date Type Department Care Team (Latest Contact Info) Description 05/04/2021 9:00 AM EST Office [place] [address] Pedro Mai MD [facility] [place] [address] Preop examination; Primary osteoarthritis of right hip; [...] Social History Occupational History ??? 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 Smoking status: Former Smoker [...] flank pain and hematuria. Had TURP at [facility] last year after other JIMI and has [...] procedure at [facility] in [place]: shaking Has [...] ECGs available Confirmed by Janki Allred MD ([id number]) on 10/06/2020 3:29:14 PM Xray - severe [...] will defer to Dr. Aceves on further developmental training counselor regards this and he has kindly [...] TH Visit (TeleHealth) Radiation Oncology at [address] [phone] Ping Moore PA [facility] [place] [address] 03/26/2024 9:30 AM EST Office Visit Hematology/Oncology at [address] [phone] [address] HEMATOLOGY AND ONCOLOGY [place], [place] [phone] 03/26/2024 9:30 AM EST Infusion Hematology Oncology at [address] [phone] 04/09/2024 9:30 AM EST Office Visit Hematology/Oncology at [address] [phone] Cl Hess MD [facility] [place] [address] HEMATOLOGY AND ONCOLOGY [place], [place] [phone] 04/09/2024 10:00 AM EST Infusion Hematology Oncology at [address] [phone] 04/23/2024 9:30 AM EST Office Visit Hematology/Oncology at [address] [phone] Cl Hess MD [facility] [place] [address] Yessi Renee DIRECTOR OF PRIMARY CARE [address] [place] [address] DR HEMATOLOGY [place] [address] 04/23/2024 10:00 AM EST Infusion Hematology Oncology at [address] [phone] 05/18/2024 4:30 PM EDT TH Visit (TeleHealth) [place] [address] Malachi Rothman MD [facility] [place] [address] documented as of this encounter Visit Diagnoses Diagnosis Preop examination Preoperative examination, unspecified Primary osteoarthritis of right hip Primary localized osteoarthrosis, pelvic region and thigh ASCVD (arteriosclerotic cardiovascular disease) Unspecified cardiovascular disease documented in this encounter Care Teams Line Supply Relationship Specialty Start Date End Date Alo Carey DO [address] [place] [address] [place] [address] PCP - General Internal Medicine 08/31/20 07/03/23 documented as of this encounter
--- OUTSIDE RECORDS SUMMARY | 2024-03-12 10:59 | XMS_ITS | Encounter Summary ---
Author Organization [facility]ly [facility] [place] [address] Care Team Providers Care Ground Surveillance Systems Operator Name Role Phone Alo Carey DO Primary Care Provider [phone] Encounter Details Date Type Department Care Team (Late st Contact Info) Description 05/05/2021 Telephone [place] [address] Pedro Mai MD [facility] [place] [address] Social History Tobacco Use Types Packs/Day Years [...] TH Visit (TeleHealth) Radiation Oncology at [address] [phone] Ping Moore PA [facility] DR [place] [address] 03/26/2024 9:30 AM EST Office Visit Hematology/Oncology at [address] [phone] Yessi Renee, [address] HEMATOLOGY AND ONCOLOGY [place], [place] [phone] 03/26/2024 9:30 AM EST Infusion Hematology Oncology at [address] [phone] 04/09/2024 9:30 AM EST Office Visit Hematology/Oncology at [address] [phone] Cl Hess MD [facility] [place] [address] [address] HEMATOLOGY AND ONCOLOGY [place], [place] [address] 04/09/2024 10:00 AM EST Infusion Hematology Oncology at [address] [phone] 04/23/2024 9:30 AM EST Office Visit Hematology/Oncology at [address] [phone] Cl Hess MD [facility] [place] [address] Yessi Renee APRN [address] [place] [address] DR HEMATOLOGY AND ONCOLOGY [place], [place] [address] 04/23/2024 10:00 AM EST Infusion Hematology Oncology at [address] [phone] 05/18/2024 4:30 PM EDT TH Visit (TeleHealth) [place] [address] Malachi Rothman MD [facility] [place] [address] documented as of this encounter Visit Diagnoses Not on filedocumented in this encounter Care Teams Ground Surveillance Systems Operator Relationship Specialty Start Date End Date Alo Carey DO [address] [place] [address] [place] [phone] PCP - General Internal Medicine 08/31/20 07/03/23 documented as of this encounter
--- OUTSIDE RECORDS SUMMARY | 2024-03-12 10:59 | XMS_ITS | Encounter Summary ---
Author Organization [facility] [place] [address] Care Team Providers Care Helpdesk Analyst Name Role Phone Alo Carey DO Primary Care Provider [phone] Reason for Referral * Consultation (Urgent) - Closed Specialty Diagnoses / Procedures Referred By Marques livingston Referred To Contact Vascular Surgery Diagnoses Carotid artery stenosis, symptomatic, right Pedro Mai MD [facility] DR [place] [address] [facility] Vascular Surg [address] [place] [address] Referral ID Status Reason Start Date Expiration Date V isits Requested Visits Authorized [id number] Closed Consult, Test & Treat 05/05/2021 05/05/2022 1 1 Encounter Details Date Type Department Care Team (Late st Contact Info) Description 05/05/2021 Orders [place] [address] Pedro Mai MD [facility] [place] [address] Carotid artery stenosis, symptomatic, right Social History [...] TH Visit (TeleHealth) Radiation Oncology at [address] [phone] Ping Moore PA [facility] HEMATOLOGY [place] [address] 03/26/2024 9:30 AM EST Office Visit Hematology/Oncology at [address] [phone] [address] HEMATOLOGY AND ONCOLOGY [place], [place] [phone] 03/26/2024 9:30 AM EST Infusion Hematology Oncology at [address] [phone] 04/09/2024 9:30 AM EST Office Visit Hematology/Oncology at [address] [phone] Cl Hess MD [facility] [place] [address] [address] HEMATOLOGY AND ONCOLOGY [place], [place] [phone] 04/09/2024 10:00 AM EST Infusion Hematology Oncology at [address] [phone] 04/23/2024 9:30 AM EST Office Visit Hematology/Oncology at [address] [phone] Cl Hess MD [facility] [place] [address] Yessi Renee APRN [address] [place] [address] DR HEMATOLOGY [place] [address] 04/23/2024 10:00 AM EST Infusion Hematology Oncology at [address] [phone] 05/18/2024 4:30 PM EDT TH Visit (TeleHealth) [place] [address] Malachi Rothman MD [facility] [place] [address] Scheduled Referrals Name Type Priority Associated Diagnoses Orde r Schedule Referral to Vascular Surgery Outpatient Referral Routine Carotid artery stenosis, symptomatic, right Ordered: 05/05/2021 documented as of this encounter Visit Diagnoses Diagnosis Carotid artery stenosis, symptomatic, right documented in this encounter Care Teams Helpdesk Analyst Relationship Specialty Start Date End Date Alo Carey DO [address] [place] [address] [place] [address] PCP - General Internal Medicine 08/31/20 07/03/23 documented as of this encounter
--- OUTSIDE RECORDS SUMMARY | 2024-03-12 10:59 | XMS_ITS | Encounter Summary ---
[place] [address] Care Team Providers Care Retouching Operator Name Role Phone Alo Carey Primary Care Provider [phone] Encounter Details Date Type Department Care Team (Late st Contact Info) Description 05/23/2021 1:00 PM EDT Tech [place] [phone] Karin Ortega Stenosis of carotid artery, unspecified [...] TH Visit (TeleHealth) Radiation Oncology at [address] [phone] Ping Moore PA [facility] HEMATOLOGY [place] [address] 03/26/2024 9:30 AM EST Office Visit Hematology/Oncology at [address] [phone] [address] HEMATOLOGY AND ONCOLOGY [place], [place] [address] 03/26/2024 9:30 AM EST Infusion Hematology Oncology at [address] [phone] 04/09/2024 9:30 AM EST Office Visit Hematology/Oncology at [address] [phone] Cl Hess MD [facility] [place] [address] [address] HEMATOLOGY AND ONCOLOGY [place], [place] [phone] 04/09/2024 10:00 AM EST Infusion Hematology Oncology at [address] [phone] 04/23/2024 9:30 AM EST Office Visit Hematology/Oncology at [address] [phone] Cl Hess MD [facility] [place] [address] Yess[address] Renee [address] HEMATOLOGY [place] [address] 04/23/2024 10:00 AM EST Infusion Hematology Oncology at [address] [address] 05/18/2024 4:30 PM EDT TH Visit (TeleHealth) [place] [address] Malachi Rothman MD [facility] [place] [address] documented as of this encounter Procedures Procedure Name Priority Date/Time Associated Diagnosis Comments CAROTID DUPLEX, BILATERAL Routine 05/23/2021 12:58 PM EDT Stenosis of carotid artery, unspecified laterality documented in this encounter Results * Carotid Duplex, Bilateral (05/23/2021 12:58 PM EDT) VB Text Report Department: Vascular Surgery Lab Patient: [id number] (THA SADLER) CPT: 31252 Referring Physician: JASIEL ZULUAGA, PRODUCT ASSURANCE ENGINEER ?? Indications: History of Carotid stenosis, eye [...] VASCUBASE 05/23/2021 12:5 8 PM EDT Jasiel Smith Cheryl PRODUCT ASSURANCE ENGINEER VASCULAR ORDERABLE S VASCUBASE documented in this encounter Visit Diagnoses Diagnosis Stenosis of carotid artery, unspecified laterality documented in this encounter Care Teams Retouching Operator Relationship Specialty Start Date End Date Alo Carey DO [address] [place] [address] [place] [address] PCP - General Internal Medicine 08/31/20 07/03/23 documented as of this encounter
--- OUTSIDE RECORDS SUMMARY | 2024-03-12 10:59 | XMS_ITS | Encounter Summary ---
[place] [address] Care Team Providers Care Tray Checker Name Role Phone Alo Carey Primary Care Provider [phone] Encounter Details Date Type Department Care Team (Late st Contact Info) Description 05/04/2021 Notes [place] [address] Sr Ismael Morales Social History Tobacco Use [...] knee Replacement: Balancing Safety and Effectiveness. Principle Smt Machine Operator: Dr. Phan Mohr #: [id number] Informed consent for the above entitled study [...] TH Visit (TeleHealth) Radiation Oncology at [address] [phone] Ping Moore PA [facility] [place] [address] 03/26/2024 9:30 AM EST Office Visit Hematology/Oncology at [address] [phone] Yessi Renee [address] HEMATOLOGY AND ONCOLOGY [place], [place] [phone] 03/26/2024 9:30 AM EST Infusion Hematology Oncology at [address] [phone] 04/09/2024 9:30 AM EST Office Visit Hematology/Oncology at [address] [phone] Cl Hess MD [facility] [place] [address] Yessi Renee [address] HEMATOLOGY AND ONCOLOGY [place], [place] [address] 04/09/2024 10:00 AM EST Infusion Hematology Oncology at [address] [phone] 04/23/2024 9:30 AM EST Office Visit Hematology/Oncology at [address] [phone] Cl Hess MD [facility] [place] [address] Yessi Renee APRN [address] [place] [address] DR [place]Y [place] [address] 04/23/2024 10:00 AM EST Infusion Hematology Oncology at [address] [phone] 05/18/2024 4:30 PM EDT TH Visit (TeleHealth) [place] [address] Malachi Rothman MD [facility] [place] [address] documented as of this encounter Visit Diagnoses Not on filedocumented in this encounter Care Teams Tray Checker Relationship Specialty Start Date End Date Alo Carey DO [address] [place] [address] [place] [address] PCP - General Internal Medicine 08/31/20 07/03/23 documented as of this encounter
--- OUTSIDE RECORDS SUMMARY | 2024-03-12 10:59 | XMS_ITS | Encounter Summary ---
[place] [address] Care Team Providers Care Home Health Nurse Licensed Practical Name Role Phone Alo Carey DO Primary Care Provider [phone] Encounter Details Date Type Department Care Team (Late st Contact Info) Description 06/16/2021 Orders Only [place] [phone] Gordo Beaver MD Malignant neoplasm of prostate Social History Tobacco [...] TH Visit (TeleHealth) Radiation Oncology at [address] [phone] Ping Moore PA [facility] DR [place] [address] 03/26/2024 9:30 AM EST Office Visit Hematology/Oncology at [address] [phone] Y[address] HEMATOLOGY AND ONCOLOGY [place], [place] [phone] 03/26/2024 9:30 AM EST Infusion Hematology Oncology at [address] [phone] 04/09/2024 9:30 AM EST Office Visit Hematology/Oncology at [address] [phone] Cl Hess MD [facility] [place] [address] [address] HEMATOLOGY AND ONCOLOGY [place], [place] [phone] 04/09/2024 10:00 AM EST Infusion Hematology Oncology at [address] [phone] 04/23/2024 9:30 AM EST Office Visit Hematology/Oncology at [address] [phone] Cl Hess MD [facility] [place] [address] [address] HEMATOLOGY AND ONCOLOGY [place], [place] [address] 04/23/2024 10:00 AM EST Infusion Hematology Oncology at [address] [phone] 05/18/2024 4:30 PM EDT TH Visit (TeleHealth) [place] [address] Malachi Rothman MD [facility] [place] [address] documented as of this encounter Visit Diagnoses Diagnosis Malignant neoplasm of prostate documented in this encounter Care Teams Home Health Nurse Licensed Practical Relationship Specialty Start Date End Date Alo Carey DO [address] [place] [address] [place] [address] PCP - General Internal Medicine 08/31/20 07/03/23 documented as of this encounter
--- OUTSIDE RECORDS SUMMARY | 2024-03-12 10:59 | XMS_ITS | Encounter Summary ---
[place] [address] Care Team Providers Care Ruling Machine Operator Name Role Phone CherryAlo Lon R[place] Primary Care Provider [phone] Reason for Visit * Reason Onset Date Comments Pre Procedure Call 06/05/2021 Encounter Details Date Type Department Care Team (Late st Contact Info) Description 06/05/2021 Telephone [place] [phone] Ismael Wu MD [facility] [place] [address] Pre Procedure Call Social History Tobacco Use [...] surgery. Best number to reach the caller: [phone] Barr in vascular on [...] TH Visit (TeleHealth) Radiation Oncology at [address] [phone] Ping Moore PA [facility] DR [place] [address] 03/26/2024 9:30 AM EST Office Visit Hematology/Oncology at [address] [phone] Yessi Renee APRN [address] [place] [address] HEMATOLOGY AND ONCOLOGY [place], [place] [address] 03/26/2024 9:30 AM EST Infusion Hematology Oncology at [address] [phone] 04/09/2024 9:30 AM EST Office Visit Hematology/Oncology at [address] [address] Cl Hess MD [facility] [place] [address] [address] HEMATOLOGY AND ONCOLOGY [place], [place] [address] 04/09/2024 10:00 AM EST Infusion Hematology Oncology at [address] [phone] 04/23/2024 9:30 AM EST Office Visit Hematology/Oncology at [address] [phone] Cl Hess MD [facility] [place] [address] HEMATOLOGY [place] [address] 04/23/2024 10:00 AM EST Infusion Hematology Oncology at [address] [phone] 05/18/2024 4:30 PM EDT TH Visit (TeleHealth) [place] [address] Malachi Rothman MD [facility] [place] [address] documented as of this encounter Visit Diagnoses Not on filedocumented in this encounter Care Teams Ruling Machine Operator Relationship Specialty Start Date End Date Alo Carey DO [address] [place] [address] [place] [address] PCP - General Internal Medicine 08/31/20 07/03/23 documented as of this encounter
--- OUTSIDE RECORDS SUMMARY | 2024-03-12 10:59 | XMS_ITS | Encounter Summary ---
Author Organization Formerly [facility] [place] [address] Care Team Providers Care Spot Checker Name Role Phone Alo Carey DO Primary Care Provider [phone] Reason for Referral * Diagnostic Test (Routine) - Closed Specialty Diagnoses / Procedures Referred By Marques livingston Referred To Contact Diagnoses Stenosis of carotid artery, unspecified laterality Procedures Carotid Duplex, Bilateral Jasiel Luna APRN [facility] [place] [address] [facility] Vascular Lab [address] [place] [address] Referral ID Status Reason Start Date Expiration Date V isits Requested Visits Authorized [id number] Closed Specialty Service Requested 05/05/2021 05/05/2022 1 1 Encounter Details Date Type Department Care Team (Late st Contact Info) Description 05/05/2021 Orders Only [place] [address] Jasiel Luna APRN Stenosis of carotid artery, unspecified laterality Social [...] TH Visit (TeleHealth) Radiation Oncology at [address] [phone] Ping Moore PA [facility] DR HEMATOLOGY [place] [address] 03/26/2024 9:30 AM EST Office Visit Hematology/Oncology at [address] [phone] Yessi Renee, [address] HEMATOLOGY AND ONCOLOGY [place], [place] [phone] 03/26/2024 9:30 AM EST Infusion Hematology Oncology at [address] [phone] 04/09/2024 9:30 AM EST Office Visit Hematology/Oncology at [address] [phone] Cl Hess MD [facility] [place] [address] Yessi Renee [address] HEMATOLOGY AND ONCOLOGY [place], [place] [phone] 04/09/2024 10:00 AM EST Infusion Hematology Oncology at [address] [phone] 04/23/2024 9:30 AM EST Office Visit Hematology/Oncology at [address] [phone] Cl Hess MD [facility] [place] [address] Yessi Renee APRN [address] [place] [address] DR HEMATOLOGY AND ONCOLOGY [place], [place] [address] 04/23/2024 10:00 AM EST Infusion Hematology Oncology at [address] [phone] 05/18/2024 4:30 PM EDT TH Visit (TeleHealth) [place] [address] Malachi Rothman MD [facility] [place] [address] documented as of this encounter Results * Carotid Duplex, Bilateral (05/23/2021 12:58 PM EDT) VB Text Report Department: Vascular Surgery Lab Patient: [id number] (THA SADLER) CPT: 67809 Referring Physician: JASIEL LUNA APRN ?? Indications: [...] 05/23/2021 12:5 8 PM EDT Jasiel Luna CHANGER FIXER VASCULAR ORDERABLE S VASCUBASE documented in this encounter Visit Diagnoses Diagnosis Stenosis of carotid artery, unspecified laterality documented in this encounter Care Teams Spot Checker Relationship Specialty Start Date End Date Alo Carey DO [address] [place] [address] [place] [address] PCP - General Internal Medicine 08/31/20 07/03/23 documented as of this encounter
--- OUTSIDE RECORDS SUMMARY | 2024-03-12 10:59 | XMS_ITS | Encounter Summary ---
[place] [address] Care Team Providers Care Applications Chemist Name Role Phone YungAlo santiago Primary Care Provider [phone] Encounter Details Date Type Department Care Team (Late st Contact Info) Description 05/05/2021 Notes [place] [phone] Olena Perez Social History Tobacco Use Types [...] knee Replacement: Balancing Safety and Effectiveness. Principle Manager Gyn: Dr. Phan Mohr #: [id number] Subject #: [id number] Subject has been randomized to arm C for the above named clinical trial. Arm C (Rivaroxaban) orders to be placed while in-patient. Patient must use [facility] pharmacy to get $75 cap borrero. Note submitted by Olena Perez, Clinical Research Coordinator. documented in this encounter Plan of Treatment Upcoming Encounters Date Type Department Care Team (Late st Contact Info) Description 03/24/2024 9:00 AM EST TH Visit (TeleHealth) Radiation Oncology at [address] [phone] Ping Moore PA [facility] DR [place] [address] 03/26/2024 9:30 AM EST Office Visit Hematology/Oncology at [address] [phone] [address] HEMATOLOGY AND ONCOLOGY [place], [place] [phone] 03/26/2024 9:30 AM EST Infusion Hematology Oncology at [address] [phone] 04/09/2024 9:30 AM EST Office Visit Hematology/Oncology at [address] [phone] Cl Hess MD [facility] [place] [address] Yessi Renee [address] HEMATOLOGY AND ONCOLOGY [place], [place] [address] 04/09/2024 10:00 AM EST Infusion Hematology Oncology at [address] [phone] 04/23/2024 9:30 AM EST Office Visit Hematology/Oncology at [address] [phone] Cl Hess MD [facility] [place] [address] Yessi Renee APRN [address] [place] [address] DR HEMATOLOGY AND ONCOLOGY [place], [place] [address] 04/23/2024 10:00 AM EST Infusion Hematology Oncology at [address] [phone] 05/18/2024 4:30 PM EDT TH Visit (TeleHealth) [place] [address] Malachi Rothman MD [facility] [place] [address] documented as of this encounter Visit Diagnoses Not on filedocumented in this encounter Care Teams Applications Chemist Relationship Specialty Start Date End Date Alo Carey DO [address] [place] [address] [place] [phone] PCP - General Internal Medicine 08/31/20 07/03/23 documented as of this encounter
--- OUTSIDE RECORDS SUMMARY | 2024-03-12 11:00 | XMS_ITS | Encounter Summary ---
Author Organization [facility] [place] [address] Care Team Providers Care Hand Stonecutter Name Role Phone Alo Carey DO Primary Care Provider [phone] Encounter Details Date Type Department Care Team (Late Contact Info) Description 01/16/2021 Ancillary Procedure Radiology Library at [facility] [place] [place] [address] Alo Carey DO [address] [place] [phone] Social History Tobacco Use Types Packs/Day Years [...] TH Visit (TeleHealth) Radiation Oncology at [address] [phone] Ping Moore PA [facility] DR [place] [address] 03/26/2024 9:30 AM EST Office Visit Hematology/Oncology at [address] [phone] Yessi Renee, [address] HEMATOLOGY AND ONCOLOGY [place], [place] [address] 03/26/2024 9:30 AM EST Infusion Hematology Oncology at [address] [phone] 04/09/2024 9:30 AM EST Office Visit Hematology/Oncology at [address] [phone] Cl Hess MD [facility] [place] [address] [address] HEMATOLOGY AND ONCOLOGY [place], [place] [phone] 04/09/2024 10:00 AM EST Infusion Hematology Oncology at [address] [phone] 04/23/2024 9:30 AM EST Office Visit Hematology/Oncology at [address] [phone] Cl Hess MD [facility] [place] [address] Yessi Renee [address] HEMATOLOGY AND ONCOLOGY [place], [place] [address] 04/23/2024 10:00 AM EST Infusion Hematology Oncology at [address] [phone] 05/18/2024 4:30 PM EDT TH Visit (TeleHealth) Radiation Oncology at [facility] [place] [address] Malachi Rothman MD [facility] [place] [address] documented as of this encounter Procedures Procedure Name Priority Date/Time Associated Diagnosis Comments FILM LIBRARY STORAGE ONLY MR ABDOMEN Routine 01/16/2021 12:00 AM EST documented in this encounter Results * Film Library- Storage Only MR Abdomen (01/16/2021 12:00 AM EST) Narrative [facility] - 02/09/2021 11:34 AM EST This exam is auto-finalizing. It's purpose is for storage only. Alo Carey DO [facility] FILM LIBRARY ORD ERABLES [place], [place] documented in this encounter Visit Diagnoses Not on filedocumented in this encounter Care Teams Hand Stonecutter Relationship Specialty Start Date End Date Alo Carey DO [address] [place] [address] [place] [address] PCP - General Internal Medicine 08/31/20 07/03/23 documented as of this encounter
--- OUTSIDE RECORDS SUMMARY | 2024-03-12 11:00 | XMS_ITS | Encounter Summary ---
Author Organization [facility] [place] [address] Care Team Providers Care Ict Business Analyst Name Role Phone YungAlo santiago Primary Care Provider [phone] Encounter Details Date Type Department Care Team (Late st Contact Info) Description 01/25/2021 Telephone Urology at [facility] [place] [phone] Cayetano Engle MD [facility] [place] [address] Social History Tobacco Use Types Packs/Day Years [...] TH Visit (TeleHealth) Radiation Oncology at [address] [phone] Ping Moore PA [facility] DR HEMATOLOGY [place] [address] 03/26/2024 9:30 AM EST Office Visit Hematology/Oncology at [address] [phone] [address] HEMATOLOGY AND ONCOLOGY [place], [place] [phone] 03/26/2024 9:30 AM EST Infusion Hematology Oncology at [address] [phone] 04/09/2024 9:30 AM EST Office Visit Hematology/Oncology at [address] [phone] Cl Hess MD [facility] [place] [address] [address] [place] [address] 04/09/2024 10:00 AM EST Infusion Hematology Oncology at [address] [phone] 04/23/2024 9:30 AM EST Office Visit Hematology/Oncology at [address] [phone] Cl Hess MD [facility] [place] [address] Yessi Renee APRN [address] [place] [address] DR [place] [address] 04/23/2024 10:00 AM EST Infusion Hematology Oncology at [address] [phone] 05/18/2024 4:30 PM EDT TH Visit (TeleHealth) [place] [address] Malachi Rothman MD [facility] DR [place] [address] documented as of this encounter Visit Diagnoses Not on filedocumented in this encounter Care Teams Ict Business Analyst Relationship Specialty Start Date End Date Alo Carey DO [address] [place] [address] [place] [address] PCP - General Internal Medicine 08/31/20 07/03/23 documented as of this encounter
--- OUTSIDE RECORDS SUMMARY | 2024-03-12 11:00 | XMS_ITS | Encounter Summary ---
Author Organization [facility] Address [facility] [place] [address] Care Team Providers Care Clerk Telegraph Service Name Role Phone YungAlo santiago Primary Care Provider [phone] Reason for Visit * Consultation (YASSINE) - Closed Specialty Diagnoses / Procedures Referred By Marques livingston Referred To Contact Urology Diagnoses Malignant neoplasm of prostate Dr. Myers has requested simultaneous appointments with Dr. Engle and Dr. Naylor -- retention, high risk prostate ca Rock Myers MD [address] [place] [address] Spenser Naylor MD [facility] [place] [address] Referral ID Status Reason Start Date Expiration Date V isits Requested Visits Authorized [id number] Closed Consult, Test & Treat 11/25/2020 11/25/2021 6 6 Encounter Details Date Type Department Care Team (Latest Contact Info) Description 01/16/2021 2:00 PM EST TH Visit (TeleHealth) [place] [address] Cayetano Engle MD [facility] [place] [address] Benign prostatic hyperplasia, unspecified whether lower urinary [...] that time by his urologist in [place]. MRI ordered due to PSA velocity and [...] on 01/24/21 and with radiation oncology in [facility] on01/20/21. Anticoagulation? On ASA/plavix PMH and [...] TH Visit (TeleHealth) Radiation Oncology at [address] [phone] Ping Moore PA [facility] DR HEMATOLOGY [place] [address] 03/26/2024 9:30 AM EST Office Visit Hematology/Oncology at [address] [phone] [address] HEMATOLOGY AND ONCOLOGY [place], [place] [phone] 03/26/2024 9:30 AM EST Infusion Hematology Oncology at [address] [phone] 04/09/2024 9:30 AM EST Office Visit Hematology/Oncology at [address] [phone] Cl Hess MD [facility] [place] [address] [address] HEMATOLOGY AND ONCOLOGY [place], [place] [address] 04/09/2024 10:00 AM EST Infusion Hematology Oncology at [address] [phone] 04/23/2024 9:30 AM EST Office Visit Hematology/Oncology at [address] [phone] Cl Hess MD [facility] [place] [address] Yessi Renee APRN [address] [place] [address] DR HEMATOLOGY [place] [address] 04/23/2024 10:00 AM EST Infusion Hematology Oncology at [address] [phone] 05/18/2024 4:30 PM EDT TH Visit (TeleHealth) [place]iation [place] [address] Malachi Rothman MD [facility] [place] [address] Scheduled Orders Name Type Priority Associated Diagnoses [...] prostate documented in this encounter Care Teams Clerk Telegraph Service Relationship Specialty Start Date End Date Alo Carey DO [address] [place] [address] [place] [phone] PCP - General Internal Medicine 08/31/20 07/03/23 documented as of this encounter
--- OUTSIDE RECORDS SUMMARY | 2024-03-12 11:00 | XMS_ITS | Encounter Summary ---
Author Organization [facility] Address [facility] [place] [address] Care Team Providers Care Curator Natural History Museum Name Role Phone YungAlo santiago Primary Care Provider [phone] Encounter Details Date Type Department Care Team (Late st Contact Info) Description 02/02/2021 8:30 AM EST - 02/02/2021 9:45 AM EST Surgery Main OR at [address] [phone] Cayetano Engle MD [facility] [place] [address] CYSTO, LASER TURP (WRVU 12.15) Social History [...] Wero Sadler Patient Age: 71 y.o. Language: Bermudian Race: White Ethnicity: Not nor Admit date: [...] Hospital Course: Patient was admitted electively to [facility] via the same day surgery program [...] at [facility] in [place]: shaking [...] PM STJ INFUSION, ROOM Hematology Oncology at [facility] Arrive at: [facility] door at end of hallway [phone] 03/15/2021 11:00 AM Kushal Aceves MD Neurology at [facility] Arrive at: Recreation Therapist Area 3C [phone] 03/22/2021 2:00 PM Cayetano Engle MD Urology at [facility] Arrive at: Home [phone] Please do not come in for this visit. Your provider will call you at the number you provided. 03/30/2021 1:30 PM STJ INFUSION, ROOM Hematology Oncology at [facility] Arrive at: [facility] door at end of hallway [phone] 04/27/2021 1:30 PM STJ INFUSION, ROOM Hematology Oncology at [facility] Arrive at: [facility] door at end of hallway [phone] 05/25/2021 1:30 PM STJ INFUSION, ROOM Hematology Oncology at [facility] Arrive at: [facility] door at end of hallway [phone] 06/22/2021 1:30 PM STJ INFUSION, ROOM Hematology Oncology at [facility] Arrive at: [facility] door at end of hallway [phone] Follow-Up: Future Appointments Date Time Provider Department Center 03/02/2021 1:30 PM STJ INFUSION, ROOM [facility] 03/15/2021 11:00 AM Kushal Aceves MD [facility] NEURO [facility] 03/22/2021 2:00 PM Cayetano Engle MD [facility] URO [facility] 03/30/2021 1:30 PM STJ INFUSION, ROOM [facility] 04/27/2021 1:30 PM STJ INFUSION, ROOM [facility] 05/25/2021 1:30 PM STJ INFUSION, ROOM [facility] 06/22/2021 1:30 PM STJ INFUSION, ROOM [facility] Primary Care Provider: Alo Carey DO [phone] Follow-up Recommendations for Providers: F/u with Dr. [...] was managed by the Urology Team at [facility]. If you have any questions or concerns, please feel free to contact us. Provider Contact Information: Urology Clinic: [facility] (after business hours): documented in this encounter Discharge Instructions * Patient Instructions* Navin Crocker MD - 02/02/2021 6:03 PM EST [facility] Urology Post-Operative Discharge Instructions PHOTO-SELECTIVE VAPORIZATION OF [...] your urine. Follow Up: ??? Please call [facility] Urology at [phone] to make a routine follow-up appointment 4 weeks after your surgery. The Inpatient team may suggest earlier date if deemed necessary. Please see below if your appointment has already been created. ??? If you have any immediate questions or concerns, you may call the main [facility] line and ask the explosives operator for the ???Urology Resident intervention nurse?? . FOLLOW-UP APPOINTMENT Future Appointments and Orders Future Appointments and Orders Future Appointments Provider Department Dept Phone 03/02/2021 1:30 PM STJ INFUSION, ROOM Hematology Oncology at [facility] Arrive at: [facility] door at end of hallway [phone] 03/15/2021 11:00 AM Kushal Aceves MD Neurology at [facility] Arrive at: Recreation Therapist Area [phone] 03/30/2021 1:30 PM STJ INFUSION, ROOM Hematology Oncology at [facility] Arrive at: [facility] door at end of hallway [phone] 04/27/2021 1:30 PM STJ INFUSION, ROOM Hematology Oncology at [facility] Arrive at: [facility] door at end of hallway [phone] 05/25/2021 1:30 PM STJ INFUSION, ROOM Hematology Oncology at [facility] Arrive at: [facility] door at end of hallway [phone] 06/22/2021 1:30 PM STJ INFUSION, ROOM Hematology Oncology at [facility] Arrive at: [facility] door at end of hallway [phone] documented in this encounter Medications at Time [...] RN, transfer of care to Ale [facility] in room 136 * Briana Burton RN [...] with history of DM2, CAD s/p CABG (2019), CVA (on ASA/plavix), carotid dz (s/p CEA [...] ??? Colon adenocarcinoma 2009 recieved chemo in [place] ??? Coronary artery dissection ??? CPAP (continuous [...] 20.72) performed by Ismael Wu MD at [facility] MAIN OR ALLERGIES Allergies Allergen Reactions ??? Other [Unclassified Drug] Other (See Comments) Had reaction to a dye used during vascular procedure at [facility] in [place]: shaking [...] * Care Management Discharge - Jackelyn Marti Swapna - 02/02/2021 3:42 PM EST CARE MANAGEMENT [...] follow-up Alo Carey, DO Relationship: PCP - [address] [place] [address] Transportation: Brother able to provide transport upon discharge Wheelchair van/Ambulance? No Functional status prior to admission: Independent Home Environment: Others in the home: sibling(s) (Patient lives with his two brothers in [place], [place] (mailing address is [place], [place]).). Current Living Arrangements: home/apartment/condo. Accessibility Concerns:Resides [...] AARP SUPPLEMENT Prescription Coverage: Yes Preferred Pharmacy: [id number] - [place], [place] - [address] [facility] [address] [facility] [address] [facility] [facility] [facility] [address] [address] This plan was formulated with input from patient, brother Damian, and team. All are in agreement with plan. Jackelyn Marti RN Clinical Oyster FarmerVacuum Frame Operator * Brief Op Note - Navin Crocker MD - 02/02/2021 10:07 AM EST [facility] Brief Operative Note [address] Patient Name: Wero Sadler : [id number] MR#: [id number] Case Date: 02/02/2021 Case Scheduled Time: 0830 [...] Crocker MD - 02/02/2021 9:13 AM EST [facility] Operative Note [address] Patient Name: Wero Sadler : [id number] MR#: [id number] Case Date: 02/02/2021 Case Scheduled Time: 829 [...] removing the sheath and placing an 20 Maltese 3-way Krause catheter. The drainage was clear; therefore, we left the bladder irrigation on standby. The patient tolerated the procedure very well and after adequate recovery, he was transferred to the Recovery Room in stable condition. ATTESTATION: I was present for the entirety of the case. No complication occurred throughout the procedure. TOTAL ENERGY USED: [id number] joules. LASING TIME: 16 minutes and 47 [...] (TeleHealth) Radiation Oncology at [address] [phone] Ping Moore PA [facility] DR HEMATOLOGY [place] [address] 03/26/2024 9:30 AM EST Office Visit Hematology/Oncology at [address] [phone] [address] HEMATOLOGY AND ONCOLOGY [place], [place] [phone] 03/26/2024 9:30 AM EST Infusion Hematology Oncology at [address] [phone] 04/09/2024 9:30 AM EST Office Visit Hematology/Oncology at [address] [phone] Cl Hess MD [facility] [place] [address] [address] HEMATOLOGY AND ONCOLOGY [place], [place] [phone] 04/09/2024 10:00 AM EST Infusion Hematology Oncology at [address] [phone] 04/23/2024 9:30 AM EST Office Visit Hematology/Oncology at [address] [phone] Cl Hess MD [facility] [place] [address] Yessi Renee APRN [address] [place] [address] DR HEMATOLOGY AND ONCOLOGY [place], [place] [address] 04/23/2024 10:00 AM EST Infusion Hematology Oncology at [address] [phone] 05/18/2024 4:30 PM EDT TH Visit (TeleHealth) [place] [phone] Malachi Rothman MD [facility] [place] [address] documented as of this encounter Procedures Procedure Name Priority Date/Time Associated Diagnosis Comments MODIFIER,GREENLIGHT LASER 02/02/2021 8:55 AM EST Benign prostatic hyperplasia, unspecified whether lower urinary tract symptoms present Laser Vaporization Surgery Prostate, Complete (35360) 02/02/2021 8:55 AM EST Benign prostatic hyperplasia, unspecified whether lower urinary tract symptoms present POCT GLUCOSE Routine 02/02/2021 8:36 AM EST BASIC METABOLIC PANEL Routine 02/02/2021 8:20 AM EST documented in this encounter Results * POCT Glucose (02/02/2021 8:36 AM EST) Glucose, POC 142 65 - 199 mg/dL [facility] Blood 02/02/2021 8:36 AM EST 02/02/2021 8:36 AM EST Cayetano Engle MD POINT OF CARE TEST O RDERABLES [facility] [address] [place] [address] * (ABNORMAL) Basic Metabolic Panel (non-fasting) (02/02/2021 8:20 AM EST) Glucose 123 65 - 199 mg/dL [facility] Comment:Diabetes: >=200 mg/d L plus symptoms Blood Urea Nitrogen 13 10 - 20 mg/dL [facility] Creatinine 0.51(L) 0.80 - 1.50 mg/dL [facility] Sodium 136 135 - 145 mmol/L [facility] Potassium 4.1 3.5 - 5.0 mmol/L [facility] Comment: Please note: ??Patients with WBC >100,000 may have falsely elevated Potassium levels. ??For accurate Potassium quantification in these patients send serum separator tube (gold top) for subsequent determinations. ??Contact the Clinical Chemistry Laboratory if there are any questions. Chloride 103 98 - 107 mmol/L [facility] Carbon Dioxide 19(L) 22 - 31 mmol/L [facility] Anion Gap 14 5 - 15 mmol/L [facility] Calcium 8.3(L) 8.5 - 10.5 mg/dL [facility] Est Glomerular Filtration Rate 107 >=60 mL/min/1. 73 m?? [facility] Comment: This patient? s estimated glomerular [...] Agency Comment Spec In Lab Leah Trejo CRNA CHEMISTRY ORDERABL ES [facility] [address] [place] [address] documented in this encounter Visit Diagnoses Diagnosis [...] 2 % gel ONCE PRN, Starting on Ammy 02/02/21 at 0846, Until Ammy 02/02/21 at 1102, Intra-Operative (Intra-Procedure), Routine Given 02/02/2021 [...] 02/02/21 at 1140, Until Sat02/03/21 at 1407 Given [...] DAILY, First dose on Ammy 02/02/21 at 1230, Until Discontinued, Routine Given 02/03/2021 [...] Provider: Ale Lou RN - Reason: Patient/family refused)175 (Given - Provider: Ale Lou RN)2326 (Given - Provider: Ruth Morales RN) 0526 (Given - Provider: Ruth Morales RN) amLODIPine (Norvasc) tablet 10 mg 10 [...] 200 mL infusion (COMPLETED) 400 mg, Intravenous, REHAB ASSISTANT TO O.R., 1 dose, On Sat02/02/21 at 0800, Administer over 60 Minutes, Day of Surgery (Day of Procedure), Indication for (Active or Suspected): Prophylaxis 08 (Given - Provider: Vilma Erazo CRNA) ciprofloxacin [...] on Sat02/03/21 at 0900, Until Discontinued, Routine 08 (Given - Provid er: Tracy [...] Routine documented in this encounter Care Teams Curator Natural [employer] Museum Relationship Specialty Start Date End Date Alo Carey DO [address] [place] [address] [place] [address] PCP - General Internal Medicine 08/31/20 07/03/23 documented as of this encounter
--- OUTSIDE RECORDS SUMMARY | 2024-03-12 11:00 | XMS_ITS | Encounter Summary ---
[place] [address] Care Team Providers Care Laundry Superintendent Name Role Phone Alo Carey DO Primary Care Provider [phone] Encounter Details Date Type Department Care Team (Late st Contact Info) Description 02/23/2021 [place] [address] Cayetano Engle MD [facility] [place] [address] Social History Tobacco Use Types Packs/Day Years [...] patient was seen with clot retention at [facility] yesterday. We are trying to arrange a void trial for him. I would be ok with him having a void trial prior to [place] as long as bleeding has stopped. He [...] EST TH Visit (TeleHealth) Radiation Oncology at [address] [phone] Ping Moore PA [facility] DR HEMATOLOGY [place] [address] 03/26/2024 9:30 AM EST Office Visit Hematology/Oncology at [address] [phone] [address] HEMATOLOGY AND ONCOLOGY [place], [place] [phone] 03/26/2024 9:30 AM EST Infusion Hematology Oncology at [address] [phone] 04/09/2024 9:30 AM EST Office Visit Hematology/Oncology at [address] [phone] Cl Hess MD [facility] [place] [address] [address]e [address] HEMATOLOGY AND ONCOLOGY [place], [place] [address] 04/09/2024 10:00 AM EST Infusion Hematology Oncology at [address] [phone] 04/23/2024 9:30 AM EST Office Visit Hematology/Oncology at [address] [phone] Cl Hess MD [facility] [place] [address] Yessi Renee APRN [address] [place] [address] DR HEMATOLOGY [place] [address] 04/23/2024 10:00 AM EST Infusion Hematology Oncology at [address] [phone] 05/18/2024 4:30 PM EDT TH Visit (TeleHealth) [place] [address] Malachi Rothman MD [facility] DR [place] [address] documented as of this encounter Visit Diagnoses Not on filedocumented in this encounter Care Teams Laundry Superintendent Relationship Specialty Start Date End Date Alo Carey DO [address] [place] [address] [place] [phone] PCP - General Internal Medicine 08/31/20 07/03/23 documented as of this encounter
--- OUTSIDE RECORDS SUMMARY | 2024-03-12 11:00 | XMS_ITS | Encounter Summary ---
[place] [address] Care Team Providers Care Credit Collections Specialist Name Role Phone CherryAlo Primary Care Provider Encounter Details Date Type Department Care Team (Late st Contact Info) Description 02/22/2021 [place] [phone] Cayetano Engle MD [facility] [place] [address] Social History Tobacco Use Types Packs/Day Years [...] TH Visit (TeleHealth) Radiation Oncology at [address] [phone] Ping Moore PA [facility] DR [place] [address] 03/26/2024 9:30 AM EST Office Visit Hematology/Oncology at [address] [phone] [address] HEMATOLOGY AND ONCOLOGY [place], [place] [phone] 03/26/2024 9:30 AM EST Infusion Hematology Oncology at [address] [phone] 04/09/2024 9:30 AM EST Office Visit Hematology/Oncology at [address] [phone] Cl Hess MD [facility] [place] [address] [address] HEMATOLOGY AND ONCOLOGY [place], [place] [phone] 04/09/2024 10:00 AM EST Infusion Hematology Oncology at [address] [phone] 04/23/2024 9:30 AM EST Office Visit Hematology/Oncology at [address] [phone] Cl Hess MD [facility] [place] [address] Yessi Renee APRN [address] [place] [address] DR HEMATOLOGY [place] [address] 04/23/2024 10:00 AM EST Infusion Hematology Oncology at [address] [phone] 05/18/2024 4:30 PM EDT TH Visit (TeleHealth) [place] [address] Malachi Rothman MD [facility] [place] [address] documented as of this encounter Visit Diagnoses Not on filedocumented in this encounter Care Teams Credit Collections Specialist Relationship Specialty Start Date End Date Alo Carey DO [address] [place] [address] [place] [address] PCP - General Internal Medicine 08/31/20 07/03/23 documented as of this encounter
--- OUTSIDE RECORDS SUMMARY | 2024-03-12 11:00 | XMS_ITS | Encounter Summary ---
Author Organization [facility] Address [facility] [place] [address] Care Team Providers Care User Support Analyst Name Role Phone YungAlo santiago Primary Care Provider [phone] Encounter Details Date Type Department Care Team (Latest Contact Info) Description 02/02/2021 7:43 AM EST - 02/03/2021 11:58 AM EST Hospital Encounter Med Surg Unit at [address] [phone] Cayetano Engle MD [facility] [place] [address] Discharge Disposition: Home Social History Tobacco Use [...] Wero Sadler Patient Age: 71 y.o. Language: Amharic Race: White Ethnicity: Not nor Admit date: [...] Hospital Course: Patient was admitted electively to [facility] via the same day surgery program [...] a dye used during vascular procedure at [facility] in [place]: shaking Has tolerated MRI and CT contrast. [...] PM STJ INFUSION, ROOM Hematology Oncology at [facility] Arrive at: [facility] door at end of hallway [phone] 03/15/2021 11:00 AM Kushal Aceves MD Neurology at 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 at: Home [phone] Please do not come in for this visit. Your provider will call you at the number you provided. 03/30/2021 1:30 PM STJ INFUSION, ROOM Hematology Oncology at [facility] Arrive at: [facility] door at end of hallway [phone] 04/27/2021 1:30 PM STJ INFUSION, ROOM Hematology Oncology at [facility] door at end of hallway [phone] 05/25/2021 1:30 PM STJ INFUSION, ROOM Hematology Oncology at [facility] Arrive at: [facility] door at end of hallway [phone] 06/22/2021 1:30 PM STJ INFUSION, ROOM Hematology Oncology at [facility] Arrive at: [facility] door at end of hallway [phone] Follow-Up: Future Appointments Date Time Provider Department Center 03/02/2021 1:30 PM STJ INFUSION, ROOM [facility] 03/15/2021 11:[address] [facility] NEURO [facility] 03/22/2021 2:00 PM [address] Engle MD [facility] URO [facility] 03/30/2021 1:30 PM STJ INFUSION, ROOM [facility] 04/27/2021 1:30 PM STJ INFUSION, ROOM [facility] 05/25/2021 1:30 PM STJ INFUSION, ROOM [facility] 06/22/2021 1:30 PM STJ INFUSION, ROOM [facility] Primary Care Provider: Alo Carey DO [phone] Follow-up Recommendations for Providers: F/u with Dr. [...] was managed by the Urology Team at [facility]. If you have any questions or concerns, please feel free to contact us. Provider Contact Information: Urology Clinic: [facility] (after business hours): documented in this encounter Discharge Instructions * Patient Instructions* Navin Crocker MD - 02/02/2021 6:[address] [facility] Urology Post-Operative Discharge Instructions [...] your urine. Follow Up: ??? Please call [facility] Urology at [phone] to make a routine follow-up appointment 4 weeks after your surgery. The Inpatient team may suggest earlier date if deemed necessary. Please see below if your appointment has already been created. ??? If you have any immediate questions or concerns, you may call the main [facility] line and ask the disposal plant operator for the ???Urology Resident food consultant?? . FOLLOW-UP APPOINTMENT Future Appointments and Orders Future Appointments and Orders Future Appointments Provider Department Dept Phone 03/02/2021 1:30 PM STJ INFUSION, ROOM Hematology Oncology at [facility] Arrive at: [facility] door at end of hallway [phone] 03/15/2021 11:00 AM Kushal Aceves MD Neurology at 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 at: Tailings Worker Area [phone] 03/30/2021 1:30 PM STJ INFUSION, ROOM Hematology Oncology at [facility] at: [facility] door at end of hallway [phone] 04/27/2021 1:30 PM STJ INFUSION, ROOM Hematology Oncology at [facility] Arrive at: [facility] door at end of hallway [phone] 05/25/2021 1:30 PM STJ INFUSION, ROOM Hematology Oncology at [facility] Arrive at: [facility] door at end of hallway [phone] 06/22/2021 1:30 PM STJ INFUSION, ROOM Hematology Oncology at [facility] Arrive at: [facility] door at end of hallway [phone] documented in this encounter Medications at Time [...] RN, transfer of care to Ale on [facility] in room 136 * Briana Burton RN [...] chemo in [place] ??? Coronary artery dissection ??? CPAP (continuous [...] 20.72) performed by Ismael Wu MD at [facility] MAIN OR ALLERGIES Allergies Allergen Reactions ??? Other [Unclassified Drug] Other (See Comments) Had reaction to a dye used during vascular procedure at [facility] in [place]: shaking Has tolerated MRI and CT contrast. [...] Miscellaneous Notes * Care Management Discharge - Figueroa Jackelyn S - 02/02/2021 3:42 PM EST CARE MANAGEMENT [...] Follow-up Care: Contact information for follow-up Alo Carey DO Relationship: PCP - [address] [place] [address] Transportation: Brother able to provide transport upon discharge Wheelchair van/Ambulance? No Functional status prior to admission: Independent Home Environment: Others in the home: sibling(s) (Patient lives with his two brothers in [place], [place] (mailing address is [place], [place]).). Current Living Arrangements: home/apartment/condo. Accessibility Concerns:Resides [...] AARP SUPPLEMENT Prescription Coverage: Yes Preferred Pharmacy: [id number] - [place], [place] - [address] [facility] [place] [address] [address] This plan was formulated with input from patient, brother Damian, and team. All are in agreement with plan. Jackelyn Marti RN Clinical Corporate Security OfficerSpecialty Development Consultant * Brief Op Note - Navin Crocker MD - 02/02/2021 10:07 AM EST [facility] Brief Operative Note [address] Patient Name: Wero Sadler : [id number] MR#: [id number] Case Date: 02/02/2021 Case Scheduled Time: 0830 [...] Crocker MD - 02/02/2021 9:13 AM EST [facility] Operative Note [address] Patient Name: Wero Sadler : [id number] MR#: [id number] Case Date: 02/02/2021 Case Scheduled Time: 829 [...] removing the sheath and placing an 20 Icelandic 3-way Krause catheter. The drainage was clear; therefore, we left the bladder irrigation on standby. The patient tolerated the procedure very well and after adequate recovery, he was transferred to the Recovery Room in stable condition. ATTESTATION: I was present for the entirety of the case. No complication occurred throughout the procedure. TOTAL ENERGY USED: [id number] joules. LASING TIME: 16 minutes and 47 [...] TH Visit (TeleHealth) Radiation Oncology at [address] [phone] Ping Moore PA [facility] DR [place] [address] 03/26/2024 9:30 AM EST Office Visit Hematology/Oncology at [address] [phone] [address] HEMATOLOGY AND ONCOLOGY [place], [place] [phone] 03/26/2024 9:30 AM EST Infusion Hematology Oncology at [address] [phone] 04/09/2024 9:30 AM EST Office Visit Hematology/Oncology at [address] [phone] Cl Hess MD [facility] [place] [address] [address] HEMATOLOGY AND ONCOLOGY [place], [place] [phone] 04/09/2024 10:00 AM EST Infusion Hematology Oncology at [address] [phone] 04/23/2024 9:30 AM EST Office Visit Hematology/Oncology at [address] [phone] Cl Hess MD [facility] [place] [address] Yessi Renee APRN [address] [place] [address] DR HEMATOLOGY [place] [address] 04/23/2024 10:00 AM EST Infusion Hematology Oncology at [address] [phone] 05/18/2024 4:30 PM EDT TH Visit (TeleHealth) [place] [address] Malachi Rothman MD [facility] [place] [address] documented as of this encounter Procedures Procedure Name Priority Date/Time Associated Diagnosis Comments MODIFIER,GREENLIGHT LASER 02/02/2021 8:55 AM EST Benign prostatic hyperplasia, unspecified whether lower urinary tract symptoms present Laser Vaporization Surgery Prostate, Complete (54552) 02/02/2021 8:55 AM EST Benign prostatic hyperplasia, unspecified whether lower urinary tract symptoms present POCT GLUCOSE Routine 02/02/2021 8:36 AM EST BASIC METABOLIC PANEL Routine 02/02/2021 8:20 AM EST documented in this encounter Results * POCT Glucose (02/02/2021 8:36 AM EST) Glucose, POC 142 65 - 199 mg/dL [facility] Blood 02/02/2021 8:36 AM EST 02/02/2021 8:36 AM EST Cayetano Engle MD POINT OF CARE TEST O RDERABLES [facility] [address] [place] [address] * (ABNORMAL) Basic Metabolic Panel (non-fasting) (02/02/2021 8:20 AM EST) Glucose 123 65 - 199 mg/dL [facility] Comment:Diabetes: >=200 mg/d L plus symptoms Blood Urea Nitrogen 13 10 - 20 mg/dL [facility] Creatinine 0.51(L) 0.80 - 1.50 mg/dL [facility] Sodium 136 135 - 145 mmol/L [facility] Potassium 4.1 3.5 - 5.0 mmol/L [facility] Comment: Please note: ??Patients with WBC >100,000 may have falsely elevated Potassium levels. ??For accurate Potassium quantification in these patients send serum separator tube (gold top) for subsequent determinations. ??Contact the Clinical Chemistry Laboratory if there are any questions. Chloride 103 98 - 107 mmol/L [facility] Carbon Dioxide 19(L) 22 - 31 mmol/L [facility] Anion Gap 14 5 - 15 mmol/L [facility] Calcium 8.3(L) 8.5 - 10.5 mg/dL [facility] Est Glomerular Filtration Rate 107 >=60 mL/min/1. 73 m?? [facility] Comment: This patient? s estimated glomerular [...] Agency Comment Spec In Lab Leah Trejo CHOKE REAMER CHEMISTRY ORDERABL ES [facility] [address] [place] [address] documented in this encounter Visit Diagnoses Diagnosis [...] Starting on Ammy 02/02/21 at 0800, Until Sat02/02/21 at 1102, Day [...] EVERY 6 HOURS SCHEDULED, First dose on Sat02/02/21 at 1230, Until Discontinued, Maximum daily dose [...] on Sat02/02/21 at 1700, Until Discontinued, Routine 1752 (Given - Provider: Ale Lou RN) 0809 (Given - Provider: Tracy Mann RN) ciprofloxacin (Cipro) 400 mg in dextrose 5% 200 mL infusion (COMPLETED) 400 mg, Intravenous, FOOD SERVICE DIRECTOR TO O.R., 1 dose, On Sat02/02/21 at [...] Ammy 02/02/21 at 2100, Until Discontinued, Routine 2030 (Given - Provider: Ruth Morales RN) 0809 (Given - Provider: Tracy Mann RN) metFORMIN XR (Glucophage XR) tablet 1,000 mg 1,000 mg, Oral, 2 TIMES DAILY WITH MEALS, First dose on Sat02/02/21 at 1700, Until Discontinued, Routine 1751 (Given - Provider: Ale Lou RN) 0809 [...] Routine documented in this encounter Care Teams User Support Analyst Relationship Specialty Start Date End Date Alo Carey DO [address] [place] [address] [place] [address] PCP - General Internal Medicine 08/31/20 07/03/23 documented as of this encounter
--- OUTSIDE RECORDS SUMMARY | 2024-03-12 11:00 | XMS_ITS | Encounter Summary ---
[place] [address] Care Team Providers Care Straightener Name Role Phone YungAlo santiago Primary Care Provider [phone] Reason for Visit * Reason Onset Date Comments Request For Record 03/09/2021 Encounter Details Date Type Department Care Team (Late st Contact Info) Description 03/09/2021 Telephone [place] [phone] Kushal Aceves MD [facility] [place] [address] Request For Record Social History Tobacco Use [...] EST Patient states that he will contact [facility] and request that they send us his imaging for his upcoming appointment. documented in this encounter Plan of Treatment Upcoming Encounters Date Type Department Care Team (Late st Contact Info) Description 03/24/2024 9:00 AM EST TH Visit (TeleHealth) Radiation Oncology at [address] [phone] Ping Moore PA [facility] HEMATOLOGY [place] [address] 03/26/2024 9:30 AM EST Office Visit Hematology/Oncology at [address] [phone] Yessi Renee [address] [place] [address] 03/26/2024 9:30 AM EST Infusion Hematology Oncology at [address] [phone] 04/09/2024 9:30 AM EST Office Visit Hematology/Oncology at [address] [phone] Cl Hess MD [facility] [place] [address] [address] HEMATOLOGY AND ONCOLOGY [place], [place] [address] 04/09/2024 10:00 AM EST Infusion Hematology Oncology at [address] [phone] 04/23/2024 9:30 AM EST Office Visit Hematology/Oncology at [address] [phone] Cl Hess MD [facility] [place] [address] Yessi Renee APRN [address] [place] [address] DR HEMATOLOGY AND ONCOLOGY [place], [place] [address] 04/23/2024 10:00 AM EST Infusion Hematology Oncology at [address] [phone] 05/18/2024 4:30 PM EDT TH Visit (TeleHealth) [place] [address] Malachi Rothman MD [facility] [place] [address] documented as of this encounter Visit Diagnoses Not on filedocumented in this encounter Care Teams Straightener Relationship Specialty Start Date End Date Alo Carey DO [address] [place] [address] [place] [phone] PCP - General Internal Medicine 08/31/20 07/03/23 documented as of this encounter
--- OUTSIDE RECORDS SUMMARY | 2024-03-12 11:00 | XMS_ITS | Encounter Summary ---
Author Organization Formerly [facility] [place] [address] Care Team Providers Care Freelance Digital Project Manager Name Role Phone Alo Carey DO Primary Care Provider [phone] Reason for Visit * Consultation (Routine) - Closed Specialty Diagnoses / Procedures Referred By Marques livingston Referred To Contact Neurology Diagnoses ASCVD (arteriosclerotic cardiovascular disease) Ismael Wu MD [facility] [place] [address] [facility] [address] [place] [address] Referral ID Status Reason Start Date Expiration Date V isits Requested Visits Authorized [id number] Closed Consult, Test & Treat 11/17/2020 11/17/2021 1 1 Encounter Details Date Type Department Care Team (Late st Contact Info) Description 03/15/2021 11:00 AM EST [place] [address] Kushal Aceves MD [facility] NEUROLOGY DEPT [place] [id number] Stenosis of right carotid artery Social History [...] Disease and Stroke Program Department of Neurology [place] [id number] t: [phone] / f: [phone] Date of Appointment: 03/15/2021 Patient: Tha Sadler PCP: Alo Carey DO Consultation Requested By: Ismael Wu Md [facility] [place] [address] . HISTORY: This 71 y.o. male is evaluated because of transient blurred vision and a right petrous carotid stenosis. He has a history of DM, tobacco abuse until 1989, He had a right CEA after disease was found during evaluation for surgery for his PAD in June of 2018 and a left CEA with a CABG in December of 2018 in [facility]. He has PAD with stenting in 2018 and 2019 and and a bypass in March of 2019. 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 On 11/24/2019 while at work his left arm went numb and then he had tunnel vision. He saw a Vascular Surgeon Dr Hobbs in [facility] and a CUS was clear and then had an MRIMRA done that showed no stroke. He was seen in an Eye Clinic in [place] and he has had persistent severe vision [...] recieved chemo in [place] ??? Coronary artery dissection ??? CPAP (continuous [...] a dye used during vascular procedure at [facility] in [place]: shaking Has tolerated MRI and CT contrast. Outpatient [...] None Occupational History ??? 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 Smoking status: Former [...] stop taking your medicine? No Stroke:PROMIS-10 03/15/2021 Kxpvqi56-Lsqqmizj Health Score 42.3 Xdnkla29-Ygwrwu Health Score 50.8 Health in general Very [...] Not difficult at all h. Do heavy acid dipper (e.g., vaccum, laundry or yard work?) Not [...] unremarkable DATA: Data and records reviewed: MRI [facility] showed no acute changes but MRA head [...] His last carotid ultrasound was done in [place] at that time and showed minimal disease. [...] providingthis patient's care. This includes time spent mqkq-rm-sxvw with the patient performing evaluation, examination, and counseling . It also includes non lwbh-uc-iaul time preparing to see the patient, reviewing the chart, coordinating care, and documenting clinical information in the electronic healthrecord. documented in this encounter Plan of Treatment Upcoming Encounters Date Type Department Care Team (Late st Contact Info) Description 03/24/2024 9:00 AM EST TH Visit (TeleHealth) Radiation Oncology at [address] [phone] Ping Moore PA [facility] DR HEMATOLOGY [place] [address] 03/26/2024 9:30 AM EST Office Visit Hematology/Oncology at [address] [phone] Yessi Renee APRN [address] [place] [address] DR HEMATOLOGY AND ONCOLOGY [place], [place] [phone] 03/26/2024 9:30 AM EST Infusion Hematology Oncology at [address] [phone] 04/09/2024 9:30 AM EST Office Visit Hematology/Oncology at [address] [phone] Cl Hess MD [facility] [place] [place] [address] HEMATOLOGY AND ONCOLOGY [place], [place] [phone] 04/09/2024 10:00 AM EST Infusion Hematology Oncology at [address] [phone] 04/23/2024 9:30 AM EST Office Visit Hematology/Oncology at [address] [phone] Cl Hess MD [facility] [place] [place] [address] [place] [address] 04/23/2024 10:00 AM EST Infusion Hematology Oncology at [address] [phone] 05/18/2024 4:30 PM EDT TH Visit (TeleHealth) [place] [address] Malachi Rothman MD [facility] [place] [address] Scheduled Referrals Name Type Priority Associated Diagnoses Orde r Schedule Referral to Neurology Outpatient Referral Routine ASCVD (arteriosclerotic cardiovascular disease) Ordered: 11/17/2020 documented as of this encounter Visit Diagnoses Diagnosis Stenosis of right carotid artery Occlusion and stenosis of carotid artery without mention of cerebral infarction documented in this encounter Care Teams Freelance Digital Project Manager Relationship Specialty Start Date End Date Alo Carey DO [address] [place] [address] [place] [address] PCP - General Internal Medicine 08/31/20 07/03/23 documented as of this encounter
--- OUTSIDE RECORDS SUMMARY | 2024-03-12 11:00 | XMS_ITS | Encounter Summary ---
[place] [address] Care Team Providers Care Program Project Analyst Name Role Phone YungAlo santiago Primary Care Provider [phone] Encounter Details Date Type Department Care Team (Late st Contact Info) Description 01/27/2021 2:15 PM EST Telephone Pre Admission Testing at [address] [phone] Social History Tobacco Use Types Packs/Day Years [...] of this encounter Progress Notes * Caridad Larson, RN - 01/27/2021 2:15 PM EST EXPOSURE: [...] TH Visit (TeleHealth) Radiation Oncology at [address] [phone] Ping Moore PA [facility] HEMATOLOGY [place] [address] 03/26/2024 9:30 AM EST Office Visit Hematology/Oncology at [address] [phone] Yessi Renee [address] HEMATOLOGY AND ONCOLOGY [place], [place] [phone] 03/26/2024 9:30 AM EST Infusion Hematology Oncology at [address] [phone] 04/09/2024 9:30 AM EST Office Visit Hematology/Oncology at [address] [phone] Cl Hess MD [facility] [place] [place] [address] Yessi Renee [address] [place] [address] 04/09/2024 10:00 AM EST Infusion Hematology Oncology at [address] [phone] 04/23/2024 9:30 AM EST Office Visit Hematology/Oncology at [address] [phone] Cl Hess MD [facility] [place] [address] [place] [address] 04/23/2024 10:00 AM EST Infusion Hematology Oncology at [address] [phone] 05/18/2024 4:30 PM EDT TH Visit (TeleHealth) [place] [address] Malachi Rothman MD [facility] [place] [address] documented as of this encounter Visit Diagnoses Not on filedocumented in this encounter Care Teams Program Project Analyst Relationship Specialty Start Date End Date Alo Carey DO [address] [place] [address] [place] [address] PCP - General Internal Medicine 08/31/20 07/03/23 documented as of this encounter
--- OUTSIDE RECORDS SUMMARY | 2024-03-12 11:00 | XMS_ITS | Encounter Summary ---
[place] [address] Care Team Providers Care Engine Boss Name Role Phone Alo Carey DO Primary Care Provider [phone] Reason for Visit * Consultation (Routine) - Closed Specialty Diagnoses / Procedures Referred By Marques lviingston Referred To Contact Radiation Oncology Diagnoses Malignant neoplasm of prostate PROSTATE CA Procedures PROSTATE CA Rock Myers MD [address] [place] [address] Alonso Shelley MD [address] [place] [address] [place] [address] Referral ID Status Reason Start Date Expiration Date Visits Re quested Visits Authorized [id number] Closed 12/13/2020 12/13/2021 6 6 Encounter Details Date Type Department Care Team (Late st Contact Info) Description 01/20/2021 10:00 AM EST Office Visit Radiation Oncology at [address] [phone] Alonso Shelley MD [address] [place] [address] [place] [address] Malignant neoplasm of prostate Social History Tobacco [...] you to my colleague Dr. Beaver in [place] for a further discussion. 3. Fiducial marker [...] of completion radiation. 6. SIDE EFFECTS - Senior Care: These can include be permanent damage of the radiated tissues, including the rectum/bowel, bladder, prostate and surrounding tissues. Potential serious injury is rare, but can include poor wound healing, bleeding, or destruction of healthy tissue that may require surgery to repair and may result in a colostomy (bag for defecation) or urostomy (bag for urination). There may be a slow, fci decrease in your sexual function as well, [...] do not hesitate to call me at [phone] with any other questions or concerns you have. IfI am not here, one of our radiation oncology nurses can assist you or help you get in touch with me. A Radiation Oncology doctor is also salesperson household appliances after our normal hours and on weekends for urgent questions or concerns related to radiation treatments that can not wait until normal business hours. To reach the on-call doctor after-hours, just call and have the radial saw operator page the Radiation Oncologist salesperson household appliances. And, as always, if you experience any [...] 7. Uncontrollable bleeding Alonso Chiu MD, MS Sports Agent of Radiation Oncology [facility] documented in this encounter Progress Notes * Alonso Shelley MD - 01/20/2021 10:00 AM EST Images from the original note were not included. Radiation Oncology Prostate Cancer Consult Note Alonso Shelley MD, MS [facility] [phone] PATIENT IDENTIFICATION: PATIENT NAME: Wero Sadler DATE OF : 1950 REFERRING PROVIDER: Alo Carey[address] [place] [address] REASON FOR CONSULTATION : Cancer Staging Malignant [...] his [facility] with [facility] N[place] [facility] He acknowledged the complexities of the case. [...] 15.4 05/2020 - 18.5 10/2020 - .6 Pathology Results / Location: 07/06/2020 - Dr aMyo ([place], [place] - [facility]) Gl 3+3 in 2 of 12 cores @ right apex (in [place], prior to moving to [place]) Pertinent Imaging Studies: mpMRI 11/17/20 - 50cc [...] ??? Colon adenocarcinoma 2009 recieved chemo in [place] ??? Coronary artery dissection ??? CPAP (continuous [...] 20.72) performed by Ismael Wu MD at [facility] MA[facility] OR CONTRAINDICATIONS TO RADIATION THERAPY: [...] vascular procedure at [facility] in [place]: shaking Has tolerated MRI and CT contrast. 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 In the short term, I reviewed the common irritative bowel and bladder side effects associated with all forms of radiotherapy. He understands we would typically wait 4-6 months post PVP to initiate RT. In the roasterman, I explained there is an approximately 2% [...] candidate for any currently open trials at [facility]. On balance, Wero wishes to proceed with his surgical consultation and PVP. After biopsy is performed, I would recommend we initiate ADT, which can be done here in [facility]. Follow-up appointments will be made accordingly. Informed [...] above Genitourinary Frequent urination Prostate IPSS and DWAIN(Pt Entered): Today's answers and scores Prostate Scores [...] with balance? Yes legally blind, tripped on dog chain Do you use any assistive devices? No Any history of collagen vascular diseases:Yes stroke 11/2019 Any Implanted Devices/Hardware: Yes Left hip replaced If yes please put alert in ARIA patient summary Prior Radiotherapy: No Prior Chemotherapy: Yes 5FU, Had colon ca 2008 in [facility], Dr Kamara. Prior Hormone Therapy: Yes , casodex for 1 month End of Dec-Jan Other: Patient denies history of Scleroderma and Lupus LEARNING ASSESSMENT REVIEWED: Yes ADVANCED DIRECTIVE: Not discussed today. PAIN ASSESSMENT: [0] out of 10 *eD-H Adult PCS Flow Sheet if 4 or above SOCIAL ASSESSMENT: See [facility] social assessment information entered. 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 on day per routine if [...] TH Visit (TeleHealth) Radiation Oncology at [address] [phone] Ping Moore PA [facility] DR [place] [address] 03/26/2024 9:30 AM EST Office Visit Hematology/Oncology at [address] [phone] Yessi Renee [address] [place] [address] 03/26/2024 9:30 AM EST Infusion Hematology Oncology at [address] [phone] 04/09/2024 9:30 AM EST Office Visit Hematology/Oncology at [address] [phone] Cl Hess MD [facility] [place] [address] [address] HEMATOLOGY AND ONCOLOGY [place], [place] [address] 04/09/2024 10:00 AM EST Infusion Hematology Oncology at [address] [phone] 04/23/2024 9:30 AM EST Office Visit Hematology/Oncology at [address] [phone] Cl Hess MD [facility] [place] [address] Yessi Renee APRN [address] [place] [address] DR [place] [address] 04/23/2024 10:00 AM EST Infusion Hematology Oncology at [address] [phone] 05/18/2024 4:30 PM EDT TH Visit (TeleHealth) [place] [address] Malachi Rothman MD [facility] [place] [address] documented as of this encounter Visit Diagnoses Diagnosis Malignant neoplasm of prostate documented in this encounter Care Teams Engine Boss Relationship Specialty Start Date End Date Alo Carey DO [address] [place] [address] [place] [phone] PCP - General Internal Medicine 08/31/20 07/03/23 documented as of this encounter
--- OUTSIDE RECORDS SUMMARY | 2024-03-12 11:00 | XMS_ITS | Encounter Summary ---
[place] [address] Care Team Providers Care Flame Cutting Machine Operator Helper Name Role Phone YungAlo santiago Primary Care Provider [phone] Encounter Details Date Type Department Care Team (Late st Contact Info) Description 02/22/2021 [place] [phone] Judson Camarena MD Social History Tobacco Use Types Packs/Day [...] encounter Miscellaneous Notes * Telephone Encounter - Judson Camarena MD - 02/22/2021 9:36 PM EST TELEPHONE NOTE Date of call: 02/22/21 Time of call: 9:36 PM Issue: urinary retention Returned patient phone call. He is s/p PVP on 02/02 (ASA/Plavix through surgery). Patient is at [facility] ED for retention. Approximately 1000 ml marooned colored urine output. Discussed with [facility] ED nursing staff and ER provider. Patient [...] for void trial in 7-10 days at [facility]. Added to culture list. Note routed to Dr. Engle. Judson Camarena MD documented in this encounter Plan of Treatment Upcoming Encounters Date Type Department Care Team (Late st Contact Info) Description 03/24/2024 9:00 AM EST TH Visit (TeleHealth) Radiation Oncology at [address] [phone] Ping Moore PA [facility] [place] [address] 03/26/2024 9:30 AM EST Office Visit Hematology/Oncology at [address] [phone] Yessi Renee APRN [address] [place] [address] DR HEMATOLOGY AND ONCOLOGY [place], [place] [phone] 03/26/2024 9:30 AM EST Infusion Hematology Oncology at [address] [phone] 04/09/2024 9:30 AM EST Office Visit Hematology/Oncology at [address] [phone] Cl Hess MD [facility] [place] [address] Yessi Renee [employer] [address] [place] [address] 04/09/2024 10:00 AM EST Infusion Hematology Oncology at [address] [phone] 04/23/2024 9:30 AM EST Office Visit Hematology/Oncology at [address] [phone] Cl Hess MD [facility] [place] [address] [address] [place] [address] 04/23/2024 10:00 AM EST Infusion Hematology Oncology at [address] [phone] 05/18/2024 4:30 PM EDT TH Visit (TeleHealth) [place] [address] Malachi Rothman MD [facility] [place] [address] documented as of this encounter Visit Diagnoses Not on filedocumented in this encounter Care Teams Flame Cutting Machine Operator Helper Relationship Specialty Start Date End Date Alo Carey DO [address] [place] [address] [place] [address] PCP - General Internal Medicine 08/31/20 07/03/23 documented as of this encounter
--- OUTSIDE RECORDS SUMMARY | 2024-03-12 11:00 | XMS_ITS | Encounter Summary ---
[place] [address] Care Team Providers Care Calculus Professor Name Role Phone CherryAlo Primary Care Provider Encounter Details Date Type Department Care Team (Late st Contact Info) Description 03/02/2021 [place] [phone] Mila Sheffield LNA Social History Tobacco Use [...] TH Visit (TeleHealth) Radiation Oncology at [address] [phone] Ping Moore PA [facility] DR [place] [address] 03/26/2024 9:30 AM EST Office Visit Hematology/Oncology at [address] [phone] [address] HEMATOLOGY AND ONCOLOGY [place], [place] [phone] 03/26/2024 9:30 AM EST Infusion Hematology Oncology at [address] [phone] 04/09/2024 9:30 AM EST Office Visit Hematology/Oncology at [address] [phone] Cl Hess MD [facility] [place] [address] [address] HEMATOLOGY AND ONCOLOGY [place], [place] [address] 04/09/2024 10:00 AM EST Infusion Hematology Oncology at [address] [phone] 04/23/2024 9:30 AM EST Office Visit Hematology/Oncology at [address] [phone] Cl Hess MD [facility] [place] [address] Yessi Renee APRN [address] [place] [address] DR HEMATOLOGY [place] [address] 04/23/2024 10:00 AM EST Infusion Hematology Oncology at [address] [phone] 05/18/2024 4:30 PM EDT TH Visit (TeleHealth) [place] [address] Malachi Rothman MD [facility] [place] [address] documented as of this encounter Visit Diagnoses Not on filedocumented in this encounter Care Teams Calculus Professor Relationship Specialty Start Date End Date Alo Carey DO [address] [place] [address] [place] [phone] PCP - General Internal Medicine 08/31/20 07/03/23 documented as of this encounter
--- OUTSIDE RECORDS SUMMARY | 2024-03-12 11:00 | XMS_ITS | Encounter Summary ---
Author Organization [facility] [address] Care Team Providers Care Foundry Engineer Name Role Phone Alo Carey DO Primary Care Provider [phone] Encounter Details Date Type Department Care Team (Late Contact Info) Description 12/07/2020 Ancillary Procedure Radiology [facility] at [facility] [place] [address] Alo Carey DO [address] [place] [phone] Social History Tobacco Use Types Packs/Day [...] TH Visit (TeleHealth) Radiation Oncology at [address] [phone] Ping Moore PA [facility] DR [place] [address] 03/26/2024 9:30 AM EST Office Visit Hematology/Oncology at [address] [phone] Yessi Renee, [address] HEMATOLOGY AND ONCOLOGY [place], [place] [address] 03/26/2024 9:30 AM EST Infusion Hematology Oncology at [address] [phone] 04/09/2024 9:30 AM EST Office Visit Hematology/Oncology at [address] [phone] Cl Hess MD [facility] [address] [address] HEMATOLOGY AND ONCOLOGY [place], [place] [phone] 04/09/2024 10:00 AM EST Infusion Hematology Oncology at [address] [phone] 04/23/2024 9:30 AM EST Office Visit Hematology/Oncology at [address] [phone] Cl Hess MD [facility] [address] Yessi Renee [address] HEMATOLOGY AND ONCOLOGY [place], [place] [address] 04/23/2024 10:00 AM EST Infusion Hematology Oncology at [address] [phone] 05/18/2024 4:30 PM EDT TH Visit (TeleHealth) Radiation Oncology at [facility] [place] [address] Malachi Rothman MD [facility] [place] [address] documented as of this encounter Procedures Procedure Name Priority Date/Time Associated Diagnosis Comments FILM LIBRARY STORAGE ONLY CT ABDOMEN AND PELVIS Routine 12/07/2020 12:00 AM EDT documented in this encounter Results * Film Library- Storage Only CT Abdomen & Pelvis (12/07/2020 12:00 AM EDT) Narrative [facility] - 02/28/2021 10:10 AM EST This exam is auto-finalizing. It's purpose is for storage only. Alo Carey DO [facility] FILM LIBRARY ORD ERABLES [place], [place] documented in this encounter Visit Diagnoses Not on filedocumented in this encounter Care Teams Foundry Engineer Relationship Specialty Start Date End Date Alo Carey DO [address] [place] [address] [place] [address] PCP - General Internal Medicine 08/31/20 07/03/23 documented as of this encounter
--- OUTSIDE RECORDS SUMMARY | 2024-03-12 11:00 | XMS_ITS | Encounter Summary ---
Author Organization [facility] [place] [address] Care Team Providers Care Agricultural Chemist Name Role Phone Alo Carey DO Primary Care Provider [phone] Encounter Details Date Type Department Care Team (Late Contact Info) Description 01/24/2021 Telephone Main OR at [address] [address] Patricia Zayas Social History Tobacco Use Types [...] TH Visit (TeleHealth) Radiation Oncology at [address] [phone] Ping Moore PA [facility] [place] [address] 03/26/2024 9:30 AM EST Office Visit Hematology/Oncology at [address] [phone] HEMATOLOGY AND ONCOLOGY [place], [place] [address] 03/26/2024 9:30 AM EST Infusion Hematology Oncology at [address] [address] 04/09/2024 9:30 AM EST Office Visit Hematology/Oncology at [address] [phone] Cl Hess MD [facility] [place] [address] HEMATOLOGY AND ONCOLOGY [place], [place] [address] 04/09/2024 10:00 AM EST Infusion Hematology Oncology at [address] [phone] 04/23/2024 9:30 AM EST Office Visit Hematology/Oncology at [address] [phone] Cl Hess MD [facility] [place] [address] HEMATOLOGY [place] [address] 04/23/2024 10:00 AM EST Infusion Hematology Oncology at [address] [phone] 05/18/2024 4:30 PM EDT TH Visit (TeleHealth) [place] [address] Malachi Rothman MD [facility] [place] [address] documented as of this encounter Visit Diagnoses Not on filedocumented in this encounter Care Teams Agricultural Chemist Relationship Specialty Start Date End Date Alo Carey DO [address] [place] [address] [place] [address] PCP - General Internal Medicine 08/31/20 07/03/23 documented as of this encounter
--- OUTSIDE RECORDS SUMMARY | 2024-03-12 11:00 | XMS_ITS | Encounter Summary ---
Author Organization [facility] Address [facility] [place] [address] Care Team Providers Care Product Lead Name Role Phone Alo Carey DO Primary Care Provider [phone] Encounter Details Date Type Department Care Team (Late st Contact Info) Description 02/02/2021 8:56 AM EST Anesthesia Event Main OR at [address] [address] Vilma Erazo C[place] [address] Leah Trejo CRNA [facility] [place] [address] Anesthesia Record Procedure Summary Procedure Name Responsible [...] basilic vein (medial side of arm), left; bztw-zmo-zbjale catheter system; Anatomical Landmarks; 20 gauge; briana garcia; distraction, tolerated well, appears comfortable; 02/03/21; 1130 02/02/21 08 by Briana Garcia RN 02/03/21 113 by Tracy Terry RN Supraglottic Mask Ventilation: No t Attempted (0); LMA Type: air-Q; Inserted by: ; Removal Date: 02/02/21; Removal Time: 95502/02/21 09 by Vilma Erazo CRNA 02/02/21 09 by Vilma Erazo CRNA Urethral Catheter 02/02/21; 0943; Urol ogic surgery; (3 way, continuous irrigation with normal saline); latex (red); 20; inserted at this facility (inserted by Dr. Engle after laser TURP); 1; 30; intraurethral Xylocaine gel; drainage bag to dependent drainage; 02/03/21; 0730 02/02/21 0943 by Jannette Vera RN 02/03/21 07 by Tracy Terry RN documented in this [...] Procedure Summary Date: 02/02/21 Room / Location: [facility] MAIN OR Anesthesia Start: 855 Anesthesia Stop: 1003 Procedures: CYSTO, LASER TURP (WRVU 12.15) (Midline [...] shown include unvalidated device data. Patient Location: PACU/[facility] [...] Left 10/10/2020 TOTAL HIP ARTHROPLASTY - POSTERIOR (WRU 20.72) performed by Ismael Wu MD at [facility] MAIN OR Social History Tobacco Use [...] used during vascular procedure at [facility] in [place]: shaking Has tolerated MRI [...] cancer, postop urinary retention following recent JIMI ([facility]) ?? Patient had urinary retention after [...] note documented. Appears that a pre- induction [place] was placed with some difficulty. GERD: on [...] TH Visit (TeleHealth) Radiation Oncology at [address] [phone] Ping Moore PA [facility] DR [place] [address] 03/26/2024 9:30 AM EST Office Visit Hematology/Oncology at [address] [phone] Yessi Renee APRN [address] [place] [address] HEMATOLOGY AND ONCOLOGY [place], [place] [phone] 03/26/2024 9:30 AM EST Infusion Hematology Oncology at [address] [phone] 04/09/2024 9:30 AM EST Office Visit Hematology/Oncology at [address] [phone] Cl Hess MD [facility] [place] [address] [address] HEMATOLOGY AND ONCOLOGY [place], [place] [address] 04/09/2024 10:00 AM EST Infusion Hematology Oncology at [address] [phone] 04/23/2024 9:30 AM EST Office Visit Hematology/Oncology at [address] [phone] Cl Hess MD [facility] [place] [address] [address] HEMATOLOGY AND ONCOLOGY [place], [place] [address] 04/23/2024 10:00 AM EST Infusion Hematology Oncology at [address] [phone] 05/18/2024 4:30 PM EDT TH Visit (TeleHealth) [place] [address] Malachi Rothman MD [facility] [place] [address] documented as of this encounter Visit Diagnoses Not on filedocumented in this encounter Administered Medications Inactive Administered Medications - up to 3 most recent administrations Medication Order MAR Action Action Date Dose Rate Site ciprofloxacin (Cipro) 400 mg in dextrose 5% 200 mL infusion 400 mg, Intravenous, DIRECTOR BIOLOGICS TO O.R., 1 dose, On Ammy 02/02/21 [...] (2 mg/mL) injection Intravenous, PRN, Starting on Amym 02/02/21 at 0908, Until Ammy 02/02/21 at [...] mg documented in this encounter Care Teams Product Lead Relationship Specialty Start Date End Date Alo Carey DO [address] [place] [address] [place] [address] PCP - General Internal Medicine 08/31/20 07/03/23 documented as of this encounter
--- OUTSIDE RECORDS SUMMARY | 2024-03-12 11:00 | XMS_ITS | Encounter Summary ---
Author Organization [facility] Address [facility] [place] [address] Care Team Providers Care Relief Captain Name Role Phone CherryAlo Lon RUTHERFORD Primary Care Provider [phone] Encounter Details Date Type Department Care Team (Latest Contact Info) Description 11/17/2020 11:59 AM EDT - 11/17/2020 2:20 PM EDT Hospital Encounter XRay at [facility] [address] [facility] [place] [phone] Primary osteoarthritis of left hip; Left leg [...] TH Visit (TeleHealth) Radiation Oncology at [address] [phone] [facility] HEMATOLOGY [place] [address] 03/26/2024 9:30 AM EST Office Visit Hematology/Oncology at [address] [phone] [address] HEMATOLOGY AND ONCOLOGY [place], [place] [address] [phone] 03/26/2024 9:30 AM EST Infusion Hematology Oncology at [address] [phone] 04/09/2024 9:30 AM EST Office Visit Hematology/Oncology at [address] [phone] [facility] [place] [address] [address] HEMATOLOGY AND ONCOLOGY [place], [place] [phone] 04/09/2024 10:00 AM EST Infusion Hematology Oncology at [address] [phone] 04/23/2024 9:30 AM EST Office Visit Hematology/Oncology at [address] [phone] [facility] [place] [address] [address] [place] [address] 04/23/2024 10:00 AM EST Infusion Hematology Oncology at [address] [phone] 05/18/2024 4:30 PM EDT TH Visit (TeleHealth) [place] [address] [facility] [place] [address] documented as of this encounter Procedures Procedure [...] who have questions please contact the health childcare center director that requested your imaging first. ? [...] patients who have questions please contactthe health childcare center director that requested your imaging first. Ismael Wu MD IMG DX ORDERABLES documented in this encounter Visit Diagnoses Diagnosis Primary osteoarthritis of left hip Primary localized osteoarthrosis, pelvic region and thigh Left leg pain Pain in limb documented in this encounter Care Teams Relief Captain Relationship Specialty Start Date End Date Alo Carey DO [address] [place] [address] [place] [address] PCP - General Internal Medicine 08/31/20 07/03/23 documented as of this encounter
--- OUTSIDE RECORDS SUMMARY | 2024-03-12 11:00 | XMS_ITS | Encounter Summary ---
[place] [address] Care Team Providers Care School Supervisor Name Role Phone Alo Carey Primary Care Provider [phone] Encounter Details Date Type Department Care Team (Late st Contact Info) Description 02/23/2021 Telephone Urology at [facility] [address] [place] [phone] Tristen Novoa Social History Tobacco Use [...] retention yesterday and ended up at the [facility] ER last evening and a urology resident from [facility] was contacted. A witt catheter was placed [...] that he sees Dr. Myers up in [place] and was thinking of contacting him to [...] TH Visit (TeleHealth) Radiation Oncology at [address] [phone] Ping Moore PA [facility] DR [place] [address] 03/26/2024 9:30 AM EST Office Visit Hematology/Oncology at [address] [phone] Yessi Renee APRN [address] [place] [address] DR HEMATOLOGY AND ONCOLOGY [place], [place] [address] 03/26/2024 9:30 AM EST Infusion Hematology Oncology at [address] [phone] 04/09/2024 9:30 AM EST Office Visit Hematology/Oncology at [address] [phone] Cl Hess MD [facility] [place] [address] [address] HEMATOLOGY AND ONCOLOGY [place], [place] [address] 04/09/2024 10:00 AM EST Infusion Hematology Oncology at [address] [phone] 04/23/2024 9:30 AM EST Office Visit Hematology/Oncology at [address] [phone] Cl Hess MD [facility] [place] [address] Yessi Renee, [address] [place] [address] 04/23/2024 10:00 AM EST Infusion Hematology Oncology at [address] [phone] 05/18/2024 4:30 PM EDT TH Visit (TeleHealth) [place] [address] Malachi Rothman MD [facility] [place] [address] documented as of this encounter Visit Diagnoses Not on filedocumented in this encounter Care Teams School Supervisor Relationship Specialty Start Date End Date Alo Carey DO [address] [place] [address] [place] [address] PCP - General Internal Medicine 08/31/20 07/03/23 documented as of this encounter
--- OUTSIDE RECORDS SUMMARY | 2024-03-12 11:00 | XMS_ITS | Encounter Summary ---
[place] [address] Care Team Providers Care Apartment Leasing Specialist Name Role Phone Alo Carey Primary Care Provider [phone] Encounter Details Date Type Department Care Team (Late Contact Info) Description 01/25/2021 Orders Only Radiation Oncology at [address] [place] [address] Bigg Peters MD [address] [place] [address] [place] [address] Social History Tobacco Use Types [...] TH Visit (TeleHealth) Radiation Oncology at [address] [phone] Ping Moore PA [facility] DR HEMATOLOGY [place] [address] 03/26/2024 9:30 AM EST Office Visit Hematology/Oncology at [address] [phone] [address] HEMATOLOGY AND ONCOLOGY [place], [place] [address] 03/26/2024 9:30 AM EST Infusion Hematology Oncology at [address] [phone] 04/09/2024 9:30 AM EST Office Visit Hematology/Oncology at [address] [phone] Cl Hess MD [facility] [place] [address] HEMATOLOGY AND ONCOLOGY [place], [place] [address] 04/09/2024 10:00 AM EST Infusion Hematology Oncology at [address] [phone] 04/23/2024 9:30 AM EST Office Visit Hematology/Oncology at [address] [phone] Cl Hess MD [facility] [place] [address] HEMATOLOGY AND ONCOLOGY [place], [place] [address] 04/23/2024 10:00 AM EST Infusion Hematology Oncology at [address] [phone] 05/18/2024 4:30 PM EDT TH Visit (TeleHealth) [place] [address] Malachi Rothman MD [facility] [place] [address] documented as of this encounter Visit Diagnoses Not on filedocumented in this encounter Care Teams Apartment Leasing Specialist Relationship Specialty Start Date End Date Alo Carey DO [address] [place] [address] [place] [address] PCP - General Internal Medicine 08/31/20 07/03/23 documented as of this encounter
--- OUTSIDE RECORDS SUMMARY | 2024-03-12 11:00 | XMS_ITS | Encounter Summary ---
[place] [address] Care Team Providers Care Health Program Director Name Role Phone YungAlo santiago Primary Care Provider [phone] Reason for Visit * Reason Onset Date Comments Pre Procedure Call 12/02/2020 Encounter Details Date Type Department Care Team (Late st Contact Info) Description 12/02/2020 Telephone [place] [phone] Ismael Wu MD [facility] DR [place] [address] Pre Procedure Call Social History Tobacco Use [...] TH Visit (TeleHealth) Radiation Oncology at [address] [phone] Ping Moore PA [facility] HEMATOLOGY [place] [address] 03/26/2024 9:30 AM EST Office Visit Hematology/Oncology at [address] [phone] [address] HEMATOLOGY [place] [address] 03/26/2024 9:30 AM EST Infusion Hematology Oncology at [address] [phone] 04/09/2024 9:30 AM EST Office Visit Hematology/Oncology at [address] [phone] Cl Hess MD [facility] [place] [address] Yessi Renee DIRECTOR VIDEO [address] [place] [address] DR HEMATOLOGY [place] [address] 04/09/2024 10:00 AM EST Infusion Hematology Oncology at [address] [phone] 04/23/2024 9:30 AM EST Office Visit Hematology/Oncology at [address] [phone] Cl Hess MD [facility] [place] [address] [address] HEMATOLOGY [place] [address] 04/23/2024 10:00 AM EST Infusion Hematology Oncology at [address] [phone] 05/18/2024 4:30 PM EDT TH Visit (TeleHealth) [place] [address] Malachi Rothman MD [facility] [place] [address] documented as of this encounter Visit Diagnoses Not on filedocumented in this encounter Care Teams Health Program Director Relationship Specialty Start Date End Date Alo Carey DO [address] [place] [address] [place] [address] PCP - General Internal Medicine 08/31/20 07/03/23 documented as of this encounter
--- OUTSIDE RECORDS SUMMARY | 2024-03-12 11:00 | XMS_ITS | Encounter Summary ---
Author Organization [facility] [address] Care Team Providers Care Wallpaper Consultant Name Role Phone YungAlo santiago Primary Care Provider [phone] Encounter Details Date Type Department Care Team (Late st Contact Info) Description 11/17/2020 Telephone [place] [address] Ismael Wu MD [facility] [place] [address] Social History Tobacco Use Types Packs/Day Years [...] TH Visit (TeleHealth) Radiation Oncology at [address] [phone] Ping Moore PA [facility] DR [place] [address] 03/26/2024 9:30 AM EST Office Visit Hematology/Oncology at [address] [phone] Yess[address] HEMATOLOGY AND ONCOLOGY [place], [place] [phone] 03/26/2024 9:30 AM EST Infusion Hematology Oncology at [address] [phone] 04/09/2024 9:30 AM EST Office Visit Hematology/Oncology at [address] [phone] Cl Hess MD [facility] [place] [address] [address] HEMATOLOGY AND ONCOLOGY [place], [place] [address] 04/09/2024 10:00 AM EST Infusion Hematology Oncology at [address] [phone] 04/23/2024 9:30 AM EST Office Visit Hematology/Oncology at [address] [phone] Cl Hess MD [facility] [place] [address] Yessi Renee APRN [address] [place] [address] DR HEMATOLOGY AND ONCOLOGY [place], [place] [address] 04/23/2024 10:00 AM EST Infusion Hematology Oncology at [address] [phone] 05/18/2024 4:30 PM EDT TH Visit (TeleHealth) [place] [address] Malachi Rothman MD [facility] [place] [address] documented as of this encounter Visit Diagnoses Not on filedocumented in this encounter Care Teams Wallpaper Consultant Relationship Specialty Start Date End Date Alo Carey DO [address] [place] [address] [place] [address] PCP - General Internal Medicine 08/31/20 07/03/23 documented as of this encounter
--- OUTSIDE RECORDS SUMMARY | 2024-03-12 11:00 | XMS_ITS | Encounter Summary ---
[place] [address] Care Team Providers Care Textile Machinery Instructor Name Role Phone YungAlo santiago Primary Care Provider [phone] Reason for Visit * Reason Onset Date Comments Other 01/25/2021 Encounter Details Date Type Department Care Team (Late st Contact Info) Description 01/25/2021 Tele[place] [phone] Ismael Wu MD [facility] DR [place] [address] Other Social History Tobacco Use Types Packs/Day [...] TH Visit (TeleHealth) Radiation Oncology at [address] [phone] Ping Moore PA [facility] DR HEMATOLOGY [place] [address] 03/26/2024 9:30 AM EST Office Visit Hematology/Oncology at [address] [phone] Yessi Renee APRN [address] [place] [address] DR HEMATOLOGY AND ONCOLOGY [place], [place] [address] 03/26/2024 9:30 AM EST Infusion Hematology Oncology at [address] [phone] 04/09/2024 9:30 AM EST Office Visit Hematology/Oncology at [address] [phone] Cl Hess MD [facility] [place] [address] HEMATOLOGY AND ONCOLOGY [place], [place] [address] 04/09/2024 10:00 AM EST Infusion Hematology Oncology at [address] [phone] 04/23/2024 9:30 AM EST Office Visit Hematology/Oncology at [address] [phone] Cl Hess MD [facility] [place] [address] [address] HEMATOLOGY AND ONCOLOGY [place], [place] [address] 04/23/2024 10:00 AM EST Infusion Hematology Oncology at [address] [phone] 05/18/2024 4:30 PM EDT TH Visit (TeleHealth) [place] [address] Malachi Rothman MD [facility] [place] [address] documented as of this encounter Visit Diagnoses Not on filedocumented in this encounter Care Teams Textile Machinery Instructor Relationship Specialty Start Date End Date Alo Carey DO [address] [place] [address] [place] [address] PCP - General Internal Medicine 08/31/20 07/03/23 documented as of this encounter
--- OUTSIDE RECORDS SUMMARY | 2024-03-12 11:00 | XMS_ITS | Encounter Summary ---
Author Organization [facility] [place] [address] Care Team Providers Care Music Coordinator Name Role Phone Alo Carey DO Primary Care Provider [phone] Reason for Referral * Consultation (Routine) - Closed Specialty Diagnoses / Procedures Referred By Marques livingston Referred To Contact Neurology Diagnoses ASCVD (arteriosclerotic cardiovascular disease) Ismael Wu MD [facility] [place] [address] [facility] Neurology [address] [place] [phone] Referral ID Status Reason Start Date Expiration Date V isits Requested Visits Authorized [id number] Closed Consult, Test & Treat 11/17/2020 11/17/2021 1 1 Reason for Visit * Reason Comments Post Op 10/10/2020 LEFT JIMI Encounter Details Date Type Department Care Team (Latest Contact Info) Description 11/17/2020 1:30 PM EDT [place] [address] Ismael Wu MD [facility] [place] [address] Primary osteoarthritis of right hip (Primary Dx); [...] he is getting ready to head to [place] for the winter. Wero dnies fevers, chills, [...] a dye used during vascular procedure at [facility] [place] SIGNIFICANT MEDICAL COMORBIDITIES: Patient Active Problem List Diagnosis Code ??? Colorectal cancer C19 ??? Diabetes mellitus E11.9 ??? Hypercholesterolemia E78.00 ??? Hypertensive disorder I10 ??? ASCVD (arteriosclerotic cardiovascular disease) I25.10 ??? Primary osteoarthritis of left hip M16.12 ??? s/p L JIMI, posterior, Dr. Wu, 10/10/20 Z96.642 ??? Postoperative urinary retention N99.89, R33.8 QUESTIONNAIRE RESPONSES: [facility] Surgical Followup Visit 11/17/2020 PROMIS-10 General Health [...] Back pain at this moment None [facility] Response 11/17/2020 HOOS JR Scores 100 Spine [facility] Response 11/17/2020 HOOS JR Scores 100 PHYSICAL [...] attempt to complete it before he heads [facility] for the winter. All questions were [...] - RIGHT JIMI, posterior, [employer] [facility] [place] Ismael Wu MD, MSc Division of Adult Reconstructive Construction Management AssistantRitual Circumciser of Orthopaedics Department of Orthopaedics [facility] [address] [email or web address] documented in this encounter Plan of Treatment Upcoming Encounters Date Type Department Care Team (Late st Contact Info) Description 03/24/2024 9:00 AM EST TH Visit (TeleHealth) Radiation Oncology at [address] [phone] Ping Moore PA [facility] HEMATOLOGY [place] [address] 03/26/2024 9:30 AM EST Office Visit Hematology/Oncology at [address] [phone] [address] HEMATOLOGY AND ONCOLOGY [place], [place] [phone] 03/26/2024 9:30 AM EST Infusion Hematology Oncology at [address] [phone] 04/09/2024 9:30 AM EST Office Visit Hematology/Oncology at [address] [phone] Cl Hess MD [facility] [place] [address] HEMATOLOGY AND ONCOLOGY [place], [place] [phone] 04/09/2024 10:00 AM EST Infusion Hematology Oncology at [address] [phone] 04/23/2024 9:30 AM EST Office Visit Hematology/Oncology at [address] [phone] Cl Hess MD [facility] [place] [address] [address] HEMATOLOGY AND ONCOLOGY [place], [place] [phone] 04/23/2024 10:00 AM EST Infusion Hematology Oncology at [address] [phone] 05/18/2024 4:30 PM EDT TH Visit (TeleHealth) [place] [address] Malachi Rothman MD [facility] [place] [address] Scheduled Referrals Name Type Priority Associated Diagnoses Orde r Schedule Referral to Neurology Outpatient Referral Routine ASCVD (arteriosclerotic cardiovascular disease) Ordered: 11/17/2020 documented as of this encounter Results * APTT (05/04/2021 11:34 AM EST) Partial Thromboplastin Time 29 25 - 37 sec [facility] Comment: The PTT [...] HEMATOLOGY ORDERABL ES [facility] [place] [address] * Prothrombin Time (05/04/2021 11:34 AM EST) Prothrombin Time 11.2 9.4 - 12.5 sec [facility] International Normalization Ratio 1.0 [facility] Comment: An INR <2.0 indicates [...] HEMATOLOGY ORDERABL ES [facility] [place] [address] * Basic Metabolic Panel (non-fasting) (05/04/2021 11:34 AM EST) Glucose 178 65 - 199 mg/dL [facility] Comment:Diabetes: >=200 mg/d L plus symptoms Blood Urea Nitrogen 19 10 - 20 mg/dL [facility] Creatinine 0.84 0.80 - 1.50 mg/dL [facility] Sodium 140 135 - 145 mmol/L [facility] Potassium 4.6 3.5 - 5.0 mmol/L [facility] Comment: Please note: ??Patients with WBC >100,000 may have falsely elevated Potassium levels. ??For accurate Potassium quantification in these patients send serum separator tube (gold top) for subsequent determinations. ??Contact the Clinical Chemistry Laboratory if there are any questions. Chloride 104 98 - 107 mmol/L [facility] Carbon Dioxide 25 22 - 31 mmol/L [facility] Anion Gap 11 5 - 15 mmol/L [facility] Calcium 9.7 8.5 - 10.5 mg/dL [facility] Est Glomerular Filtration Rate 87 >=60 mL/min/1. 73 m?? [facility] Comment: This patient? s [...] Lab Ismael Wu [place] [address] documented in this encounter Visit Diagnoses Diagnosis Primary osteoarthritis of right hip- Primary Primary localized osteoarthrosis, pelvic region and thigh ASCVD (arteriosclerotic cardiovascular disease) Unspecified cardiovascular disease Right leg pain Pain in limb documented in this encounter Care Teams Music Coordinator Relationship Specialty Start Date End Date Alo Carey DO [address] [place] [address] [place] [address] PCP - General Internal Medicine 08/31/20 07/03/23 documented as of this encounter
--- OUTSIDE RECORDS SUMMARY | 2024-03-12 11:00 | XMS_ITS | Encounter Summary ---
[place] [address] Care Team Providers Care Assembly Associate Name Role Phone Alo Carey Primary Care Provider [phone] Encounter Details Date Type Department Care Team (Late Contact Info) Description 01/25/2021 Orders Only Radiation Oncology at [address] [place] [address] Bigg Peters MD [address] [place] [address] [place] [address] Social History Tobacco Use Types [...] TH Visit (TeleHealth) Radiation Oncology at [address] [phone] Ping Moore PA [facility] DR HEMATOLOGY [place] [address] 03/26/2024 9:30 AM EST Office Visit Hematology/Oncology at [address] [phone] [address] HEMATOLOGY AND ONCOLOGY [place], [place] [address] 03/26/2024 9:30 AM EST Infusion Hematology Oncology at [address] [phone] 04/09/2024 9:30 AM EST Office Visit Hematology/Oncology at [address] [phone] Cl Hess MD [facility] [place] [address] HEMATOLOGY AND ONCOLOGY [place], [place] [address] 04/09/2024 10:00 AM EST Infusion Hematology Oncology at [address] [phone] 04/23/2024 9:30 AM EST Office Visit Hematology/Oncology at [address] [phone] Cl Hess MD [facility] [place] [address] HEMATOLOGY AND ONCOLOGY [place], [place] [address] 04/23/2024 10:00 AM EST Infusion Hematology Oncology at [address] [phone] 05/18/2024 4:30 PM EDT TH Visit (TeleHealth) [place] [address] Malachi Rothman MD [facility] [place] [address] documented as of this encounter Visit Diagnoses Not on filedocumented in this encounter Care Teams Assembly Associate Relationship Specialty Start Date End Date Alo Carey DO [address] [place] [address] [place] [address] PCP - General Internal Medicine 08/31/20 07/03/23 documented as of this encounter
--- OUTSIDE RECORDS SUMMARY | 2024-03-12 11:00 | XMS_ITS | Encounter Summary ---
[place] [address] Care Team Providers Care Sandblaster Paint Sprayer Name Role Phone Alo Carey DO Primary Care Provider Reason for Visit * Reason Comments Injections Lupron * Treatment/Therapy Plan Authorization (Routine) - Pending Review Specialty Diagnoses / Procedures Referred By Marques livingston Referred To Contact Diagnoses Malignant neoplasm of prostate Bigg Peters MD [address] [place] [address] DR [place] [address] Referral ID Status Reason Start Date Expiration Date V isits Requested Visits Authorized [id number] Pending Review 01/25/2021 01/25/2022 99 99 Encounter Details Date Type Department Care Team (Late st Contact Info) Description 01/31/2021 2:30 PM EST Infusion Hematology Oncology at [address] [phone] Malignant neoplasm of prostate Social History Tobacco [...] EST TH Visit (TeleHealth) Radiation Oncology at [address] [phone] Ping Moore PA [facility] HEMATOLOGY [place] [address] 03/26/2024 9:30 AM EST Office Visit Hematology/Oncology at [address] [phone] [address] HEMATOLOGY [place] [address] 03/26/2024 9:30 AM EST Infusion Hematology Oncology at [address] [phone] 04/09/2024 9:30 AM EST Office Visit Hematology/Oncology at [address] [phone] Cl Hess MD [facility] [address] [address] HEMATOLOGY AND [place]COLOGY [place], [place] [address] [phone] 04/09/2024 10:00 AM EST Infusion Hematology Oncology at [address] [phone] 04/23/2024 9:30 AM EST Office Visit Hematology/Oncology at [address] [phone] Cl Hess MD [facility] [address] [address] HEMATOLOGY AND ONCOLOGY [place], [place] [address] 04/23/2024 10:00 AM EST Infusion Hematology Oncology at [address] [phone] 05/18/2024 4:30 PM EDT TH Visit (TeleHealth) [place] [address] Malachi Rothman MD [facility] [place] [address] documented as of this encounter Visit Diagnoses [...] Gluteal documented in this encounter Care Teams Sandblaster Paint Sprayer Relationship Specialty Start Date End Date Alo Carey DO [address] [place] [address] [place] [address] PCP - General Internal Medicine 08/31/20 07/03/23 documented as of this encounter
--- OUTSIDE RECORDS SUMMARY | 2024-03-12 11:00 | XMS_ITS | Encounter Summary ---
[place] [address] Care Team Providers Care Air Conditioning Supervisor Name Role Phone Cherry Alo Lon [place] Primary Care Provider [phone] Reason for Referral * Diagnostic Test (Routine) - Closed Specialty Diagnoses / Procedures Referred By Marques livingston Referred To Contact Radiology Diagnoses Malignant neoplasm of prostate Procedures MRI Pelvis wwo (Prostate) Rock Myers MD [address] [place] [address] [place] [address] Referral ID Status Reason Start Date Expiration Date V isits Requested Visits Authorized [id number] Closed Specialty Service Requested 10/06/2020 04/08/2022 1 1 Reason for Visit * Diagnostic Test (Routine) - Closed Specialty Diagnoses / Procedures Referred By Marques livingston Referred To Contact Radiology Diagnoses Malignant neoplasm of prostate Procedures MRI Pelvis wwo (Prostate) Rock Myers MD [address] [place] [address] [facility] [place] [address] Referral ID Status Reason Start Date Expiration Date V isits Requested Visits Authorized [id number] Closed Specialty Service Requested 10/06/2020 04/08/2022 1 1 Encounter Details Date Type Department Care Team (Late st Contact Info) Description 11/17/2020 2:21 PM EDT - 11/17/2020 11:59 PM EDT Hospital [place] [address] Rock Myers MD [address] [place] [address] Malignant neoplasm of prostate Discharge Disposition: [...] TH Visit (TeleHealth) Radiation Oncology at [address] [phone] Ping Moore PA [facility] DR HEMATOLOGY [place] [address] 03/26/2024 9:30 AM EST Office Visit Hematology/Oncology at [address] [phone] Yessi Renee APRN [address] [place] [address] DR [place] [address] 03/26/2024 9:30 AM EST Infusion Hematology Oncology at [address] [phone] 04/09/2024 9:30 AM EST Office Visit Hematology/Oncology at [address] [phone] Cl Hess MD [facility] [place] [address] Yessi Renee, [address] HEMATOLOGY AND ONCOLOGY [place], [place] [phone] 04/09/2024 10:00 AM EST Infusion Hematology Oncology at [address] [phone] 04/23/2024 9:30 AM EST Office Visit Hematology/Oncology at [address] [phone] Cl Hess MD [facility] [place] [address] [address] HEMATOLOGY AND ONCOLOGY [place], [place] [phone] 04/23/2024 10:00 AM EST Infusion Hematology Oncology at [address] [phone] 05/18/2024 4:30 PM EDT TH Visit (TeleHealth) [place] [address] Malachi Rothman MD [facility] [place] [address] documented as of this encounter Procedures Procedure [...] is highly likely to be present) References: Corby S1, Sumanth JH1, Jordin S1, Balbuena C1, Arthur J1, Teri M1, Gold S1, James G1, Rayn K1, Artur MJ1, Wood BJ1, Melendez PA1, Kat PL1, Clifford B1. ??A Grading System for the Assessment of Risk of Extraprostatic Extension of Prostate Cancer at Multiparametric MRI. Radiology. 2019 Mar;290(3):709-719. doi: 10.1148/radiol.4365001530. Epub 2018Mar 25. I have personally reviewed [...] please contact the health critical care nurse specialist that requested your imaging first. ? [...] cancer is highly likely tonia present) References: Corby S1, Sumanth JH1, Jordin S1, Balbuena C1, Arthur J1, Teri M1,Gold S1, James G1, Rayn K1, Artur MJ1, Sam BJ1, Melendez PA1, Kat PL1, Clifford B1.A Grading System for the Assessment of Risk of Extraprostatic Extension of Prostate Cancer at Multiparametric MRI. Radiology. 2019Mar;290(3):709-719. doi: 10.1148/radiol.6519568817. Epub 2018Mar 25. I have personally reviewed [...] questions please contactthe health critical care nurse specialist that requested your imaging first. Electronically signed by: Madan Angel MD, [facility]([phone]), at 11/18/2020 9:54 AM Rock Myers MD IMG MRI ORDERABLES documented in this encounter Visit Diagnoses Diagnosis Malignant neoplasm of prostate documented in this encounter Care Teams Air Conditioning Supervisor Relationship Specialty Start Date End Date Alo Carey DO [address] [place] [address] [place] [phone] PCP - General Internal Medicine 08/31/20 07/03/23 documented as of this encounter
--- OUTSIDE RECORDS SUMMARY | 2024-03-12 11:00 | XMS_ITS | Encounter Summary ---
[place] [address] Care Team Providers Care Biztalk Administrator Name Role Phone Alo Carey Primary Care Provider [phone] Encounter Details Date Type Department Care Team (Late st Contact Info) Description 02/28/2021 Tele[place] [phone] Mary Anne Barron Social History Tobacco Use Types Packs/Day Years Used Date Smoking Tobacco: Never Assessed Sex and Gender Information Value Date Recorded Sex Assigned at Not on file Gender Identity Not on file Sexual Orientation Not on file documented as of this encounter Miscellaneous Notes * Telephone Encounter - Mary Anne Barron - 02/28/2021 9:53 AM EST [facility] called and wanted to confirm the [...] EST TH Visit (TeleHealth) Radiation Oncology at [address] [phone] Ping Moore PA [facility] DR HEMATOLOGY [place] [address] 03/26/2024 9:30 AM EST Office Visit Hematology/Oncology at [address] [phone] [address] HEMATOLOGY AND ONCOLOGY [place], [place] [phone] 03/26/2024 9:30 AM EST Infusion Hematology Oncology at [address] [phone] 04/09/2024 9:30 AM EST Office Visit Hematology/Oncology at [address] [phone] Cl Hess MD [facility] [place] [address] [address] HEMATOLOGY AND ONCOLOGY [place], [place] [phone] 04/09/2024 10:00 AM EST Infusion Hematology Oncology at [address] [phone] 04/23/2024 9:30 AM EST Office Visit Hematology/Oncology at [address] [phone] Cl Hess MD [facility] [place] [address] Yessi Renee APRN [address] [place] [address] DR HEMATOLOGY AND ONCOLOGY [place], [place] [address] 04/23/2024 10:00 AM EST Infusion Hematology Oncology at [address] [phone] 05/18/2024 4:30 PM EDT TH Visit (TeleHealth) [place] [address] Malachi Rothman MD [facility] [place] [address] documented as of this encounter Visit Diagnoses Not on filedocumented in this encounter Care Teams Biztalk Administrator Relationship Specialty Start Date End Date Alo Carey DO [address] [place] [address] [place] [address] PCP - General Internal Medicine 08/31/20 07/03/23 documented as of this encounter
--- OUTSIDE RECORDS SUMMARY | 2024-03-12 11:00 | XMS_ITS | Encounter Summary ---
[place] [address] Care Team Providers Care Asphalt Heater Tender Name Role Phone YungAlo santiago Primary Care Provider [phone] Encounter Details Date Type Department Care Team (Late st Contact Info) Description 02/23/2021 [place] [phone] Renea Morton MD [facility] [place] [address] Social History Tobacco Use Types Packs/Day Years [...] TH Visit (TeleHealth) Radiation Oncology at [address] [phone] Ping Moore PA [facility] DR [place] [address] 03/26/2024 9:30 AM EST Office Visit Hematology/Oncology at [address] [phone] Yessi Renee APRN [address] [place] [address] DR HEMATOLOGY AND ONCOLOGY [place], [place] [phone] 03/26/2024 9:30 AM EST Infusion Hematology Oncology at [address] [phone] 04/09/2024 9:30 AM EST Office Visit Hematology/Oncology at [address] [phone] Cl Hess MD [facility] [place] [address] Yessi Renee APRN [address] [place] [address] 04/09/2024 10:00 AM EST Infusion Hematology Oncology at [address] [phone] 04/23/2024 9:30 AM EST Office Visit Hematology/Oncology at [address] [phone] Cl Hess MD [facility] [place] [address] [address] [place] [address] 04/23/2024 10:00 AM EST Infusion Hematology Oncology at [address] [phone] 05/18/2024 4:30 PM EDT TH Visit (TeleHealth) [place] [address] Malachi Rothman MD [facility] [place] [address] documented as of this encounter Visit Diagnoses Not on filedocumented in this encounter Care Teams Asphalt Heater Tender Relationship Specialty Start Date End Date Alo Carey DO [address] [place] [address] [place] [address] PCP - General Internal Medicine 08/31/20 07/03/23 documented as of this encounter
--- OUTSIDE RECORDS SUMMARY | 2024-03-12 11:00 | XMS_ITS | Encounter Summary ---
Author Organization [facility] Address [facility] [place] [address] Care Team Providers Care Project/Production Manager Imaging Name Role Phone YungAlo santiago Primary Care Provider [phone] Reason for Visit * Consultation (YASSINE) - Closed Specialty Diagnoses / Procedures Referred By Marques livingston Referred To Contact Urology Diagnoses Malignant neoplasm of prostate Dr. Myers has requested simultaneous appointments with Dr. Engle and Dr. Naylor -- retention, high risk prostate ca Rock Myers MD [address] [place] [address] Spenser Naylor MD [facility] [place] [address] Referral ID Status Reason Start Date Expiration Date V isits Requested Visits Authorized [id number] Closed Consult, Test & Treat 11/25/2020 11/25/2021 6 6 Encounter Details Date Type Department Care Team ([facility] st Contact Info) Description 01/24/2021 8:40 AM EST TH Visit (TeleHealth) Urology at [facility] [place] [address] Spenser Naylor MD [facility] [place] [address] Malignant neoplasm of prostate Social History Tobacco [...] and is s/p CEA and CABG in 2019 on ASA / Plavix. He also has [...] 15.4 05/2020 - 18.5 10/2020 - 21.6 ? Pathology Results / Location: 07/06/2020 - Dr Mayo ([employer], [place] - [facility]) Gl 3+3 in 2 of 12 cores @ right apex (in [place], prior to moving to [place]) ? Pertinent Imaging Studies Independently reviewed: mpMRI [...] Colon adenocarcinoma 2009 recieved chemo in [place] ??? Coronary artery dissection ??? CPAP (continuous [...] 20.72) performed by Ismael Wu MD at [facility] MAIN OR Impression: Unfavorable intermediate versus high [...] tumor and he at a minimum has Lisa 7 disease. With a PSA greater than 20 and [place] 7 disease that puts him in a [...] TH Visit (TeleHealth) Radiation Oncology at [address] [phone] Ping Moore PA [facility] DR [place] [address] 03/26/2024 9:30 AM EST Office Visit Hematology/Oncology at [address] [phone] [address] HEMATOLOGY AND ONCOLOGY [place], [place] [phone] 03/26/2024 9:30 AM EST Infusion Hematology Oncology at [address] [phone] 04/09/2024 9:30 AM EST Office Visit Hematology/Oncology at [address] [phone] Cl Hess MD [facility] [place] [address] Yessi Renee [address] HEMATOLOGY AND ONCOLOGY [place], [place] [address] 04/09/2024 10:00 AM EST Infusion Hematology Oncology at [address] [phone] 04/23/2024 9:30 AM EST Office Visit Hematology/Oncology at [address] [phone] Cl Hess MD [facility] [place] [address] Yessi Renee APRN [address] [place] [address] DR HEMATOLOGY AND ONCOLOGY [place], [place] [address] 04/23/2024 10:00 AM EST Infusion Hematology Oncology at [address] [phone] 05/18/2024 4:30 PM EDT TH Visit (TeleHealth) [place] [address] Malachi Rothman MD [facility] [place] [address] documented as of this encounter Visit Diagnoses Diagnosis Malignant neoplasm of prostate documented in this encounter Care Teams Project/Production Manager Imaging Relationship Specialty Start Date End Date Alo Carey DO [address] [place] [address] [place] [address] PCP - General Internal Medicine 08/31/20 07/03/23 documented as of this encounter
--- OUTSIDE RECORDS SUMMARY | 2024-03-12 11:00 | XMS_ITS | Encounter Summary ---
[place] [address] Care Team Providers Care Grapple Yarder Operator Name Role Phone YungAlo santiago Primary Care Provider [phone] Encounter Details Date Type Department Care Team (Late st Contact Info) Description 02/22/2021 [place] [phone] Shelly Burrell PA [facility] [place] [address] Social History Tobacco Use Types Packs/Day Years [...] TH Visit (TeleHealth) Radiation Oncology at [address] [phone] Ping Moore PA [facility] [place] [address] 03/26/2024 9:30 AM EST Office Visit Hematology/Oncology at [address] [phone] Yessi Renee [address] HEMATOLOGY AND ONCOLOGY [place], [place] [phone] 03/26/2024 9:30 AM EST Infusion Hematology Oncology at [address] [phone] 04/09/2024 9:30 AM EST Office Visit Hematology/Oncology at [address] [phone] Cl Hess MD [facility] [place] [address] Yessi Renee [address] HEMATOLOGY AND ONCOLOGY [place], [place] [address] 04/09/2024 10:00 AM EST Infusion Hematology Oncology at [address] [phone] 04/23/2024 9:30 AM EST Office Visit Hematology/Oncology at [address] [phone] Cl Hess MD [facility] [place] [address] Yessi Renee APRN [address] [place] [address] DR [place] [address] 04/23/2024 10:00 AM EST Infusion Hematology Oncology at [address] [phone] 05/18/2024 4:30 PM EDT TH Visit (TeleHealth) Radiation [place] [address] Malachi Rothman MD [facility] [place] [address] documented as of this encounter Visit Diagnoses Not on filedocumented in this encounter Care Teams Grapple Yarder Operator Relationship Specialty Start Date End Date Alo Carey DO [address] [place] [address] [place] [phone] PCP - General Internal Medicine 08/31/20 07/03/23 documented as of this encounter
--- OUTSIDE RECORDS SUMMARY | 2024-03-12 11:01 | XMS_ITS | Encounter Summary ---
Author Organization [facility] Address [address] [place] [address] Care Team Providers Care Elevator Repair Mechanic Name Role Phone Tristen Hunter MD Primary Care Provider [phone] Reason for Visit * Reason Onset Date Comments Diagnostic Imaging Report 02/07/2024 Encounter Details Date Type Department Care Team (Late st Contact Info) Description 02/07/2024 Telephone [facility] - [facility] [address], [place] [phone] Barby Guzman MD [address] [facility], Level [address] [place] [address] Diagnostic Imaging Report Social History Tobacco Use Types Packs/Day Years Used Date Smoking Tobacco: Never Assessed Sex and Gender Information Value Date Recorded Sex Assigned at Not on file Legal Sex Male 9:11 EDT Gender Identity Male 01/24/2021 12:25 EST Sexual Orientation Not on file documented as of this encounter Miscellaneous Notes * Telephone Encounter - Юлия Downs - 02/10/2024 2458 EST Spoke with the patient I have relayed the message. Patient would like to be seen sooner as his vision is decreasing I have added him to the wait list. Patient said due to transportation he needs at least 48 hour notice * Telephone Encounter - DannyStephanie - 02/07/2024 1156 EST Pt called because he still hasn't heard anything about the results of his MRI. He was under the impression that Dr. Guzman would be looking over the results. 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 He's scheduled to see Dr. Reece in March but would like to speak to someone prior to that appt. He's unclear on why he's seeing Dr. Reece. documented in this encounter Plan of Treatment Upcoming Encounters Date Type Department Care Team (Late st Contact Info) Description 03/30/2024 9:15 EST Office Visit [address] [phone] Uday Reece MD [address] [place] [phone] 04/15/2024 12:30 EST Office Visit [address] [phone] Barby Guzman MD [address] [place] [phone] documented as of this encounter Visit Diagnoses Not on filedocumented in this encounter Care Teams Elevator Repair Mechanic Relationship Specialty Start Date End Date Tristen Hunter MD [address] [place] [address] [place] [address] PCP - General Family Medicine - Primary Care 12/03/23 documented as of this encounter
--- OUTSIDE RECORDS SUMMARY | 2024-03-12 11:01 | XMS_ITS | Encounter Summary ---
Author Organization [facility] Address [address] [place] [address] Care Team Providers Care Solution Analyst Name Role Phone Tristen Hunter MD Primary Care Provider [phone] Reason for Visit * Reason Onset Date Comments Diagnostic Imaging Report 12/27/2023 Encounter Details Date Type Department Care Team (Late st Contact Info) Description 12/27/2023 Telephone [facility] Ophthalmology - [facility] [address] [place], [place] [phone] Wero Avilez MD [address] [place] [address] 2 [place] [address] Diagnostic Imaging Report Social History Tobacco Use Types Packs/Day Years Used Date Smoking Tobacco: Never Assessed Sex and Gender Information Value Date Recorded Sex Assigned at Not on file Legal Sex Male 9:11 EDT Gender Identity Male 01/24/2021 12:25 EST Sexual Orientation Not on file documented as of this encounter Miscellaneous Notes * Telephone Encounter - Юлия Downs - 01/14/2024 0912 EST Appointment scheduled * Telephone Encounter - Ping Roberts - 01/13/2024 1318 EST Pt is calling about his MRI he has made several calls with no response and would like a call on hisresults..... * Telephone Encounter - Madalyn Lopez - 01/02/2024 1529 EDT Patient is still waiting to hear back from Dr. Avilez on MRI results. He also has a question that I told him this office may not be able to answer. 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 Do you know if insurance will cover him to get a replacement? * Telephone Encounter - Catarina Odonnell - 01/01/2024 0931 EDT Pt called to check on results. * Telephone Encounter - Catarina Odonnell - 12/27/2023 0832 EDT Pt called re his MRI; would like to talk to Dr Avilez re the results. documented in this encounter Plan of Treatment Upcoming Encounters Date Type Department Care Team (Late st Contact Info) Description 03/30/2024 9:15 EST Office Visit [facility] Ophthalmology [address] 146101 Uday Reece MD [address] [place] [phone] 04/15/2024 12:30 EST Office Visit [facility] Ophthalmology [address] [phone] Barby Guzman MD [address] [place] [phone] documented as of this encounter Visit Diagnoses Not on filedocumented in this encounter Care Teams Solution Analyst Relationship Specialty Start Date End Date Tristen Hunter MD [address] [place] [address] [place] [address] PCP - General Family Medicine - Primary Care 12/03/23 documented as of this encounter
--- OUTSIDE RECORDS SUMMARY | 2024-03-12 11:01 | XMS_ITS | Encounter Summary ---
[place] [address] Care Team Providers Care Lung Gun Operator Name Role Phone Alo Carey DO Primary Care Provider [phone] Encounter Details Date Type Department Care Team (Latest Contact Info) Description 10/06/2020 3:00 PM EDT Office [place] [address] [facility] DR [place] [address] Primary osteoarthritis of left hip Social History [...] lives in [place], no preference on VNA. Prep for Surgery Advance Directive: Has one (will bring in copy) Recommend referral to Patient Financial Services: (P) No Living arrangement: (P) House Home layout: (P) Two level, Able to live on main level Number of stairs within home: (P) 13 Who will provide post-op care and support: (P) Brother and [id number] (Damian Sadler and Yaquelin) Who will provide [...] TH Visit (TeleHealth) Radiation Oncology at [address] [phone] [facility] HEMATOLOGY [place] [address] 03/26/2024 9:30 AM EST Office Visit Hematology/Oncology at [address] [phone] [address] HEMATOLOGY AND ONCOLOGY [place], [place] [address] [phone] 03/26/2024 9:30 AM EST Infusion Hematology Oncology at [address] [phone] 04/09/2024 9:30 AM EST Office Visit Hematology/Oncology at [address] [phone] [facility] [place] [address] [address] HEMATOLOGY AND ONCOLOGY [place], [place] [phone] 04/09/2024 10:00 AM EST Infusion Hematology Oncology at [address] [phone] 04/23/2024 9:30 AM EST Office Visit Hematology/Oncology at [address] [phone] [facility] [place] [address] [address] [place] [address] 04/23/2024 10:00 AM EST Infusion Hematology Oncology at [address] [phone] 05/18/2024 4:30 PM EDT TH Visit (TeleHealth) [place] [address] [facility] [place] [address] documented as of this encounter Visit Diagnoses [...] each documented in this encounter Care Teams Lung Gun Operator Relationship Specialty Start Date End Date Alo Carey DO [address] [place] [address] [place] [address] PCP - General Internal Medicine 08/31/20 07/03/23 documented as of this encounter
--- OUTSIDE RECORDS SUMMARY | 2024-03-12 11:01 | XMS_ITS | Encounter Summary ---
Author Organization [facility] [place] [address] Care Team Providers Care It Network Architect Name Role Phone Unavailable Primary Care Provider Unavailabl e Encounter Details Date Type Department Care Team (Late st Contact Info) Description 08/18/2020 Ancillary Procedure Radiology Library at [facility] [phone] Hai Tipton MD [facility] [place] [address] Social History Tobacco Use Types Packs/Day Years [...] (TeleHealth) Radiation Oncology at [address] [phone] Ping Moore PA [facility] HEMATOLOGY [place] [address] 03/26/2024 9:30 AM EST Office Visit Hematology/Oncology at [address] [phone] [address] HEMATOLOGY AND [place]OGY [place], [place] [address] 03/26/2024 9:30 AM EST Infusion Hematology Oncology at [address] [phone] 04/09/2024 9:30 AM EST Office Visit Hematology/Oncology at [address] [phone] Cl Hess MD [facility] [place] [address] [address] HEMATOLOGY AND ONCOLOGY [place], [place] [address] 04/09/2024 10:00 AM EST Infusion Hematology Oncology at [address] [phone] 04/23/2024 9:30 AM EST Office Visit Hematology/Oncology at [address] [phone] Cl Hess MD [facility] [place] [address] [address] HEMATOLOGY AND ONCOLOGY [place], [place] [address] 04/23/2024 10:00 AM EST Infusion Hematology Oncology at [address] [phone] 05/18/2024 4:30 PM EDT TH Visit (TeleHealth) [place] [address] Malachi Rothman MD [facility] [place] [address] documented as of this encounter Procedures Procedure Name Priority Date/Time Associated Diagnosis Comments FILM LIBRARY STORAGE ONLY DX HIP Routine 08/18/2020 12:00 AM EDT documented in this encounter Results * Film Library- Storage Only DX Hip (08/18/2020 12:00 AM EDT) Narrative [facility] - 08/23/2020 8:12 AM EDT This exam is auto-finalizing. It's purpose is for storage only. Hai Tipton MD IMG FILM LIBRARY ORD ERABLES [place], [place] documented in this encounter Visit Diagnoses Not on filedocumented in this encounter
--- OUTSIDE RECORDS SUMMARY | 2024-03-12 11:01 | XMS_ITS | Encounter Summary ---
[place] [address] Care Team Providers Care Business Information Analyst Name Role Phone Alo Carey Primary Care Provider [phone] Encounter Details Date Type Department Care Team (Late st Contact Info) Description 10/06/2020 Notes [place] [phone] Robert Chaney Social History Tobacco Use Types [...] Patients Undergoing Total Joint Arthroplasty. Study Number: [id number] PI: Rodrick Chisholm Visit: Pre-op Visit Date:10/06/2020 [...] TH Visit (TeleHealth) Radiation Oncology at [address] [phone] Ping Moore PA [facility] DR HEMATOLOGY [place] [address] 03/26/2024 9:30 AM EST Office Visit Hematology/Oncology at [address] [phone] Yessi Renee APRN [address] [place] [address] DR HEMATOLOGY [place] [address] 03/26/2024 9:30 AM EST Infusion Hematology Oncology at [address] [phone] 04/09/2024 9:30 AM EST Office Visit Hematology/Oncology at [address] [phone] Cl Hess MD [facility] [place] [address] [address] HEMATOLOGY AND ONCOLOGY [place], [place] [address] 04/09/2024 10:00 AM EST Infusion Hematology Oncology at [address] [phone] 04/23/2024 9:30 AM EST Office Visit Hematology/Oncology at [address] [phone] Cl Hess MD [facility] [place] [address] [address] HEMATOLOGY AND ONCOLOGY [place], [place] [address] 04/23/2024 10:00 AM EST Infusion Hematology Oncology at [address] [phone] 05/18/2024 4:30 PM EDT TH Visit (TeleHealth) [place] [phone] Malachi Rothman MD [facility] [place] [address] documented as of this encounter Visit Diagnoses Not on filedocumented in this encounter Care Teams Business Information Analyst Relationship Specialty Start Date End Date Alo Carey DO [address] [place] [address] [place] [phone] PCP - General Internal Medicine 08/31/20 07/03/23 documented as of this encounter
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
--- OUTSIDE RECORDS SUMMARY | 2024-03-12 11:01 | XMS_ITS | Encounter Summary ---
Author Organization [facility] [place] [address] Care Team Providers Care Rotor Casting Machine Setup Operator Name Role Phone Alo Carey DO [...] Expiration Date Visits Re quested Visits Authorized [id number] 1 1 Encounter Details Date Type Department Care Team (Latest Contact Info) Description 10/10/2020 1:06 PM EDT - 10/12/2020 1:18 PM EDT Hospital Encounter 3 [place] [address] Ismael Wu MD [facility] [place] [address] Primary osteoarthritis of left hip; s/p L [...] this encounter Discharge Summaries * Liz Grimes, MANAGER STRATEGY - 10/11/2020 12:39 PM EDT Discharge Summary Patient Name: Wero Sadler Patient Age: 70 y.o. Language: Trinidadian Race: White Ethnicity: Not nor Admit date: 10/10/2020 Discharge date and time: 10/12/2020 Attending Physician: Ismael Wu MD Discharge Physician: Ismael Wu MD Follow-up Recommendations for Providers: 1. The patient will need to f/u with his Urologist, Dr. Myers, on 10/17/2020, for a voidingtrial. See discharge instructions for additional details. Future Appointments Date Time Provider Department Center 11/17/2020 12:30 PM [facility] DX ROOM 6 MH Xray [facility] Rad 11/17/2020 1:30 PM Ismael uW MD [facility] ORTH 3C [facility] Inpatient Provider Contact Information: Ismael Wu MD Orthopedics: [phone] After hours and weekends, call [facility] Hamper Maker, , and have the Orthopedic resident paged. [...] patients who have questions pleasecontact the health child care giver that requested your imaging first. Electronically signed by: [facility] ([phone]), at 10/11/2020 8:33 AM XRay Pelvis (Generic) [...] questions please contact the health child care giver that requested your imaging first. Electronically signed by: Claudio Ward [facility] ([phone]), at 10/11/2020 8:30 AM XRay Hip 1 [...] questions please contact the health child care giver that requested your imaging first. Electronically signed by:Claudio Ward [facility] ([phone]), at 10/11/2020 8:31 AM XRay Hip 1 [...] questions please contact the health child care giver that requested your imaging first. Pending Studies and Lab Data at Discharge: None Transfusions: No Discharge Conditions/Prognosis: Stable, awake, and alert. Mobilizing as noted above, pain controlled on oral medications. Discharge to: Home with VNA. Updated Allergies/ADRs: Allergies Allergen Reactions ??? Other [Unclassified Drug] Had reaction to a dye used during vascular procedure at [facility] in [place] Immunizations Given this Hospitalization: There is no [...] bowel movement. You can also take an xxoj-flf-ojsetvn medication, Miralax if needed to combat constipation. [...] as much as possible. Call your doctor ([phone]) if you develop: 1. Fever greater than 100.5 2. Severe nausea or vomiting 3. Increasing pain that is not controlled by pain medications 4. Increasing redness, swelling, or drainage from incisions 5. Change in sensation FOLLOW-UP APPOINTMENTS: 1. You will have follow-up appointments at [facility] as indicated below in Future Appointment and Orders. 2. You will need to have x-rays prior to your follow-up appointment on 11/17/2020. Please come to Radiology, desk 3T, 1 hour BEFORE that appointment for these x-rays. Future Appointments Date Time Provider Department Center 11/17/2020 12:30 PM [facility] DX ROOM 6 Xray [facility] Rad 11/17/2020 1:30 PM Ismael Wu MD [facility] ORTH [address] [place] [address] If you have questions or concerns: Saturday through Saturday, 8 AM - 5 PM, please call Dr. Ismael Wu MD's office at . If it is after 5 PM, the weekend, or holidays, please call and ask to speak with theOrthopedic resident on-call. General Instructions None Future Appointments and Orders Future Appointments and Orders Future Appointments Provider Department Dept Phone 11/17/2020 12:30 PM [facility] DX ROOM 6 XRay at [facility] Arrive at: Travel Director Area [phone] Please go to Travel Director Area ([place] Location). 11/17/2020 1:30 PM Ismael Wu MD Orthopaedics at [facility] Arrive at: Travel Director Area [phone] Future Orders Complete By Expires Referral to Home Health - at DISCHARGE [MBK3457 CPT(R)] As directed Process Instructions: Scheduling Instructions: Comments: DOCUMENTATION FOR VNA SERVICES (INCLUDING PATIENTS WITH MEDICARE COVERAGE BEING DISCHARGED HOME WITH VNA SERVICES AND/OR HOSPICE SERVICES) PATIENT'S LOCATION: Wero Sadler Discharge to own home: [address] [place] [address] Glost Tile Shader's Name: self/patient In discussion with the attending physician, it is certified that this patient is under their care and that they, or a nurse practitioner, clinical nurse specialist or physician's assistant professor of music who is working directly with them, had [...] for home health services. [facility] HE[facility]ENCY: [facility] PHONE: [phone] FAX: [phone] Fdc(SN) eval if indicated on admission visit Witt [...] this patient's PCP: Alo Carey DO [address] [place] [address] All A agencies which cover patient's residence area have been reviewed, either verbally or in writing, and patient/family have chosen the indicated home health agency. Questions: Agency name and contact information: [facility] Patient location post discharge: home What services are requested: Physical Therapy Occupational Therapy Start date: Responsible MD post discharge contact info: Primary Care Provider: Alo Carey DO [phone] Discharge References/Attachments INDWELLING URINARY CATHETER CARE: GENERAL INFO (BELARUSIAN) URINARY RETENTION (BELARUSIAN) documented in this encounter Discharge Instructions * Patient Instructions* Liz Grimes Flores, MANAGER STRATEGY - 10/11/2020 12:32 PM EDT Activity: 1. [...] bowel movement. You can also take an aavw-klh-sknclde medication, Miralax if needed to combat constipation. [...] as much as possible. Call your doctor ([phone]) if you develop: 1. Fever greater than 100.5 2. Severe nausea or vomiting 3. Increasing pain that is not controlled by pain medications 4. Increasing redness, swelling, or drainage from incisions 5. Change in sensation FOLLOW-UP APPOINTMENTS: 1. You will have follow-up appointments at [facility] as indicated below in Future Appointment and Orders. 2. You will need to have x-rays prior to your follow-up appointment on 11/17/2020. Please come to Radiology, desk 3T, 1 hour BEFORE that appointment for these x-rays. Future Appointments Date Time Provider Department Center 11/17/2020 12:30 PM [facility] DX ROOM 6 Xray [facility] Rad 11/17/2020 1:30 PM Ismael Wu MD [facility] ORTH [address] [place] [address] If you have questions or concerns: Saturday through Saturday, 8 AM - 5 PM, please call Dr. Ismael Wu MD's office at . If it is after 5 PM, the weekend, or holidays, please call and ask to speak with theOrthopedic resident on-call. * Attachments The following attachments cannot be sent through Care Everywhere. * INDWELLING URINARY CATHETER CARE: GENERAL INFO (BELARUSIAN) * URINARY RETENTION (BELARUSIAN) documented in this encounter Medications at Time [...] Time Provider Department Center 11/17/2020 12:30 PM [facility] DX ROOM 6 MH Xray [facility] Rad 11/17/2020 1:30 PM Ismael Wu MD [facility] ORTH [address] [place] [address] Associated attestation - Ismael Wu MD - [...] Wu MD, MSc Division of Adult Reconstructive Bad Work GathererBrickmason Apprentice of Orthopaedics Department of Orthopaedics [facility] [address] [email or web address] * Savanah Guadalupe RN - 10/11/2020 5:44 [...] running. Tolerating carb control diet well. 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 Blood glucose elevated, controlled with insulin. Straight [...] 20.72) performed by Ismael Wu MD at [facility] MAIN OR Active Non-Hospital Problems Diagnosis ??? [...] for this consult. Time IN / OUT: 9596-1996 Total Minutes, Physical Therapy: 40 (low complexity) [...] 20.72) performed by Ismael Wu MD at [facility] MAIN OR Social History: Patient lives with [...] and may get a white cane, has areader Communication: WFL Range of motion, strength, coordination: Hand dominance: right Bilateral UEs are within functional limitations LE limitations: s/p L JIMI, enhanced precautions Activities of Daily Living: Self-feeding: seated w/ setup Grooming: standing w/ CGA to SBA and FWW, cue for squaring up Dressing: LB dressing: issued a marriage and family social worker and soft sockaid, though had difficulty using a soft sockaid (hard sockaids out of stock here)-reported he doesn't wear socks very much and can have assist fornow; donned pants w/ marriage and family social worker and cues for technique, difficult w/ suspenders [...] and measurable assessment of functional outcome. Pager: [phone] DANNI ORONA OT 10/11/2020 Occupational Therapy Rehabilitation [...] unit/mL) subcutaneous injection vial 1-4 Units ??? [id number] ketamine or placebo 250 mg in sodium chloride 0.9% 250 mL infusion AND INV [id number] patient's specific infusion med #2 1 each ??? sodium chloride 0.9% 1,000 mL (10/10/202132) ??? [id number] ketamine 100 mg/mL or placebo in sodium chloride 0.9% 500 mL infusion Stopped (10/10/202024) And ??? INV [id number] patient's specific infusion med #2 OBJECTIVE: Temp: [...] Time Provider Department Center 11/17/2020 12:30 PM [facility] DX ROOM 6 Xray [facility] Rad 11/17/2020 1:30 PM Ismael Wu MD [facility] ORTH 3C [facility] Associated attestation - Ismael Wu MD - [...] Wu MD, MSc Division of Adult Reconstructive Bad Work GathererBrickmason Apprentice of Orthopaedics Department of Orthopaedics [facility] [phone] [email or web address] * Cayetano Tobar MD - 10/11/2020 12:40 [...] unit/mL) subcutaneous injection vial 1-4 Units ??? [id number] ketamine or placebo 250 mg in sodium chloride 0.9% 250 mL infusion AND INV [id number] patient's specific infusion med #2 1 each ??? sodium chloride 0.9% 1,000 mL (10/10/202132) ??? [id number] ketamine 100 mg/mL or placebo in sodium chloride 0.9% 500 mL infusion Stopped (10/10/202024) And ??? INV [id number] patient's specific infusion med #2 OBJECTIVE: Temp: [36.2 ??C (97.2 ??F)-36.9 ??C (98.4 ??F)] Heart Rate: [63-78] Resp: [9-] BP: (138-157)/(66-93) Intake/Output Summary (Last 24 hours) [...] Time Provider Department Center 11/17/2020 12:30 PM [facility] DX ROOM 6 MH Xray [facility] Rad 11/17/2020 1:30 PM Ismael Wu MD [facility] ORTH [address] [place] [address] Associated attestation - Ismael Wu MD - 10/12/2020 9:53 AM EDT Images from the original note were not included. Department of Orthopaedics Division of Adult Joint Reconstructive Surgery October 12, 2020 I had the pleasure of evaluating Wreo Sadler in the hospital in conjunction with Dr. Tobar. I haveseen and examined the patient and reviewed the history/physical and I agree with the details as written. The assessment and plan were formulated in discussion with me and I agree with them as documented. Ismael Wu MD, MSc Division of Adult Reconstructive Bad Work GathererBrickmason Apprentice of Orthopaedics Department of Orthopaedics [facility] [phone] [email or web address] * Junaid Diallo RN - 10/10/2020 11:19 [...] Wu MD, MSc Division of Adult Reconstructive Bad Work GathererBrickmason Apprentice of Orthopaedics Department of Orthopaedics [facility] [address] [email or web address] documented in this encounter Miscellaneous Notes * [...] care provider on file: Alo Carey DO [phone] Advance Directive on file and Code Status: <no information>, Attempt Cardiopulmonary Resuscitation - Inpatient The patient will require VNA services post-op: yes, patient/caregivers were educated about their right to choose where referrals are placed patient lives in [place], no preference on VNA. ?? Prep for Surgery Advance Directive: Has one (will bring in copy) Recommend referral to Patient Financial Services: (P) No Living arrangement: (P) House Home layout: (P) Two level, Able to live on main level Number of stairs within home: (P) 13 Who will provide post-op care and support: (P) Brother and [id number] (Damian Sadler and Yaquelin) Who will provide transportation home: (P) Brother (Damian Sadler) Patient's desired discharge disposition: (P) Home with VNA Top 3 nursing choice facilities: (P) None VNA preference: (P) TBD Outpatient PT preference: (P) [facility] PT Discharge barriers and challenges: (P) None ?? The patient prefers two-wheeled walker to help with post-operative ambulation. The patient has a walker and will bring it to surgery. Functional Status prior to admission:independent with ADLs and mobility Functional Status current: assist of staff Living Situation: [address] [facility] [address] Supports: patient has two brothers who are [...] referrals are placed. Patient requests referral to [facility] [employer]. PHONE: [phone] FAX: [phone] Expected date of discharge: today Referral routed to the Horticulture Superintendent for matching with agency/vendor and to provide [...] home via private car when medically ready. shellfish harvester/Tai Chi Instructor will continue to follow patient???s progress and remain available if situation changes for coordination of care, psychosocial support and/or discharge planning. Patricia Ramirez, AYE, [facility] Pager [phone] * Op Note - Ismael Wu MD - 10/10/2020 5:49 PM EDT [facility] Operative Note Patient Name: Wero Sadler : [id number] MR#: [id number] Case Date: 10/10/2020 Surgeon: Surgeon(s) and Role: [...] of full thickness cartilage loss. IMPLANTS: System: Depuy Femoral Stem: Actis high offset, Size 7; collared, SCOTT coated Acetabulum: [place] size 60mm Liner: 36 x 60 neutral liner Femoral Head: 36mm +1.5mm ceramic head Implant Type Status Implanted on Explanted on Expires on Delete SHELL ACET HIP 60MM POR CTD MULTI HOLE TI PINNACLE GRIPTION ([id number]) (AUTOREQ) - [id number] IMPLANTS Implanted 10/10/2020 07/01/2030 LINER ACET HIP [id number] STND POLY PINNACLE ALTRX ([id number]) (AUTOREQ) - [id number] IMPLANTS Implanted10/10/2020 08/31/2025 HEAD FEMORAL HIP 36MM +1.5MM OFFSET 11/13 TAPER CERAMIC ([id number]) (AutoReq) - [id number] IMPLANTS Implanted 10/10/2020 07/01/2025 STEM FEMORAL HIP SZ 7 PROX 02/14 TAPER POR CLLR HIGH OF TI ([id number]) (AutoReq) - [id number] IMPLANTS Implanted 10/10/2020 08/31/2030 PATIENT HISTORY: The [...] and found to be appropriate with good yazdanism of leg length and offset. A intraoperative x ray was taken and confirmed appropriate sizing and positioning of implants along with proper yazdanism of leg length and offset. The hip [...] patient was then awoken, transferred to the [facility] [place] [facility] and taken to the PACU in stable [...] hours Other: Total Joint Protocol If the assistant professor of music surgeon is other than a qualified resident, [...] TH Visit (TeleHealth) Radiation Oncology at [address] [phone] Ping Moore PA [facility] [address] [place] [address] 03/26/2024 9:30 AM EST Office Visit Hematology/Oncology at [address] [phone] Yessi Renee [address] HEMATOLOGY AND ONCOLOGY [place], [place] [address] 03/26/2024 9:30 AM EST Infusion Hematology Oncology at [address] [phone] 04/09/2024 9:30 AM EST Office Visit Hematology/Oncology at [address] [phone] Cl Hess MD [facility] [place] [address] Yessi Renee MANAGER STRATEGY [facility] [address] [place] [address] 04/09/2024 10:00 AM EST Infusion Hematology Oncology at [address] [phone] 04/23/2024 9:30 AM EST Office Visit Hematology/Oncology at [address] [phone] Cl Hess MD [facility] [place] [address] [address] HEMATOLOGY AND ONCOLOGY [place], [place] [address] 04/23/2024 10:00 AM EST Infusion Hematology Oncology at [address] [phone] 05/18/2024 4:30 PM EDT TH Visit (TeleHealth) [place] [address] Malachi Rothman MD [facility] [place] [address] documented as of this encounter Procedures Procedure [...] left hip Arthroplasty Acetabular/Prox Fem Prostc Agrft/Algrft (96669) 10/10/2020 4:43 PM EDT Primary osteoarthritis of left hip POCT GLUCOSE Routine 10/10/2020 3:20 PM EDT TOTAL HIP ARTHROPLASTY - POSTERIOR Routine 10/10/2020 2:13 PM EDT Primary osteoarthritis of left hip IMPLANTABLE DEVICES SCAN 10/10/2020 12:00 AM EDT documented in this encounter Results * POCT Glucose (10/12/2020 12:10 PM EDT) Glucose, POC 129 65 - 199 mg/dL [facility] Comment: Supplemental ranges: <140 mg/dL before meals <180 mg/dL all other times of the day Blood 10/12/2020 12:1 0 PM EDT 10/12/2020 12:10 PM EDT Ismael Wu MD POINT OF CARE TEST ORDERABLES [facility] [place] [address] * POCT Glucose (10/12/2020 7:57 AM EDT) Glucose, POC 147 65 - 199 mg/dL [facility] Comment: Supplemental ranges: <140 mg/dL before meals <180 mg/dL all other times of the day Blood 10/12/2020 7:57 AM EDT 10/12/2020 7:57 AM EDT Ismael Wu MD POINT OF CARE TEST ORDERABLES Performing Organization Address City/[facility]/ZIP Co de Phone Number [facility] [place] [address] * POCT Glucose (10/12/2020 3:22 AM EDT) Glucose, POC 154 65 - 199 mg/dL [facility] Comment: Supplemental ranges: <140 mg/dL before meals <180 mg/dL all other times of the day Blood 10/12/2020 3:22 AM EDT 10/12/2020 3:22 AM EDT Ismael Wu MD POINT OF CARE TEST ORDERABLES [facility] [place] [address] * POCT Glucose (10/11/2020 11:14 PM EDT) Glucose, POC 180 65 - 199 mg/dL [facility] Comment: Supplemental ranges: <140 mg/dL before meals <180 mg/dL all other times of the day Blood 10/11/2020 11:1 4 PM EDT 10/11/2020 11:14 PM EDT Ismael Wu MD POINT OF CARE TEST ORDERABLES [facility] [place] [address] * (ABNORMAL) POCT Glucose (10/11/2020 7:53 PM EDT) Glucose, POC 208(H) 65 - 199 mg/dL [facility] Comment: Supplemental ranges: <140 mg/dL before meals <180 mg/dL all other times of the day Blood 10/11/2020 7:53 PM EDT 10/11/2020 7:53 PM EDT Ismael Wu MD POINT OF CARE TEST ORDERABLES [facility] [place] [address] * POCT Glucose (10/11/2020 4:34 PM EDT) Glucose, POC 153 65 - 199 mg/dL [facility] Comment: Supplemental ranges: <140 mg/dL before meals <180 mg/dL all other times of the day Blood 10/11/2020 4:34 PM EDT 10/11/2020 4:34 PM EDT Ismael Wu MD POINT OF CARE TEST ORDERABLES [facility] [place] [address] * (ABNORMAL) POCT Glucose (10/11/2020 11:47 AM EDT) Glucose, POC 226(H) 65 - 199 mg/dL [facility] Comment: Supplemental ranges: <140 mg/dL before meals <180 mg/dL all other times of the day Blood 10/11/2020 11:4 7 AM EDT 10/11/2020 11:47 AM EDT Ismael Wu MD POINT OF CARE TEST ORDERABLES [facility] [place] [address] * (ABNORMAL) Differential, Automated (10/11/2020 10:43 AM EDT) Pathologist [facility] Neutrophil % 84.5 % [facility] Neutrophil Absolute 11.42(H) 1.70 - 6.10 x10(3)/mc L [facility] Lymph % 7.8 % [facility] Lymphocytes Abs 1.1 0.9 - 3.2 x10(3)/ L [facility] Monocyte % 7.2 % [facility] Monocyte Abs 1.0(H) 0.3 - 0.9 x10(3)/mc L [facility] Eos % 0.0 % [facility] Eosinophils Abs 0.0 0.0 - 0.4 x10(3)/ L [facility] Basophil % 0.1 % [facility] Baso Absolute 0.0 0.0 - 0.1 x10(3)/mc L [facility] Immature Gran % 0.40 % [facility] Comment: Immature granulocytes(IG's)percentage and absolute count will include metamyelocytes, myelocytes, and promyelocytes. Blood smears from CBCs yielding IG's will be scanned manually for concordance. If this scan disagrees with the automated IG or if promyelocytes are noted, a manual differential will be performed. Immature Gran Absolute 0.06(H) 0.00 - 0.04 x10(3)/mc L [facility] Blood 10/11/2020 10:4 3 AM EDT 10/11/2020 11:09 AM EDT Narrative Resulting Agency Comment Spec In Lab Liz Grimes MANAGER STRATEGY HEMATOLOGY ORDERABL ES [facility] [place] [address] * (ABNORMAL) Hemogram (10/11/2020 10:43 AM EDT) White Blood Cell 13.5(H) 4.0 - 9.5 x10(3)/ L [facility] Red Blood Cell 3.87(L) 4.58 - 5.54 x10(6)/[facility] Hemoglobin 12.4(L) 13.7 - 16.5 gm/dL [facility] Hematocrit 36.7(L) 40.5 - 48.5 % [facility] Mean Cell Volume 94.8(H) 82.9 - 93.1 fL [facility] Mean Cell Hemoglobin 32.0 27.5 - 32.1 pg [facility] Mean Cell Hemoglobin Concentration 33.8 32.0 - 35.7 gm/dL [facility] Platelet 187 145 - 357 x10(3)/ L [facility] RDW Standard Deviation 44.4 36.0 - 45.0 [facility] RDW coefficient of variation 13.0 11.4 - 13.8 % [facility] Mean Platelet Volume 10.3 7.6 - 12.9 [facility] NRBC% auto 0.0 % [facility] NRBC Absolute 0.000 0.000 - 0.000 x10(3)/ L [facility] Blood 10/11/2020 10:4 3 AM EDT 10/11/2020 11:09 AM EDT Narrative Resulting Agency Comment Spec In Lab Liz Grimes APRN HEMATOLOGY ORDERABL ES [facility] [place] [address] * (ABNORMAL) Basic Metabolic Panel (non-fasting) (10/11/2020 10:43 AM EDT) Glucose 231(H) 65 - 199 mg/dL [facility] Comment:Diabetes: >=200 mg/d L plus symptoms Blood Urea Nitrogen 18 10 - 20 mg/dL [facility] Creatinine 1.10 0.80 - 1.50 mg/dL [facility] Sodium 135 135 - 145 mmol/L [facility] Potassium 4.4 3.5 - 5.0 mmol/L [facility] Comment: Please note: ??Patients with WBC >100,000 may have falsely elevated Potassium levels. ??For accurate Potassium quantification in these patients send serum separator tube (gold top) for subsequent determinations. ??Contact the Clinical Chemistry Laboratory if there are any questions. Chloride 100 98 - 107 mmol/L [facility] Carbon Dioxide 25 22 - 31 mmol/L [facility] Anion Gap 10 5 - 15 mmol/L [facility] Calcium 8.6 8.5 - 10.5 mg/dL [facility] Est Glomerular Filtration Rate 67 >=60 mL/min/1. 73 m?? [facility] [...] APRN CHEMISTRY ORDERABLE S Performing Organization Address [facility]/ZIP Co de Phone Number [facility] [place] [address] * (ABNORMAL) POCT Glucose (10/11/2020 7:36 AM EDT) Glucose, POC 254(H) 65 - 199 mg/dL [facility] Comment: Supplemental ranges: <140 mg/dL before meals <180 mg/dL all other times of the day Blood 10/11/2020 7:36 AM EDT 10/11/2020 7:36 AM EDT Ismael Wu MD POINT OF CARE TEST ORDERABLES Performing Organization Address [facility] Co de Phone Number [facility] [place] [address] * POCT Glucose (10/11/2020 3:36 AM EDT) Glucose, POC 199 65 - 199 mg/dL [facility] Comment: Supplemental ranges: <140 mg/dL before meals <180 mg/dL all other times of the day Blood 10/11/2020 3:36 AM EDT 10/11/2020 3:36 AM EDT Ismael Wu MD POINT OF CARE TEST ORDERABLES Performing Organization Address [facility] Co de Phone Number [facility] [place] [address] * POCT Glucose (10/11/2020 12:02 AM EDT) Glucose, POC 189 65 - 199 mg/dL [facility] Comment: Supplemental ranges: <140 mg/dL before meals <180 mg/dL all other times of the day Blood 10/11/2020 12:0 2 AM EDT 10/11/2020 12:02 AM EDT Ismael Wu MD POINT OF CARE TEST ORDERABLES [facility] [place] [address] * XR Pelvis (Generic) (10/10/2020 9:46 PM [...] questions please contact the health child care giver that requested your imaging first. ? Electronically signed by: Claudio Ward MD, [facility] ([phone]), at 10/11/2020 8:33 AM Narrative 10/11/2020 8:33 [...] have questions please contactthe health child care giver that requested your imaging first. Ismael Wu MD IMG DX ORDERABLES * POCT Glucose (10/10/2020 9:19 PM EDT) Glucose, POC 149 65 - 199 mg/dL [facility] Comment: Supplemental ranges: <140 mg/dL before meals <180 mg/dL all other times of the day Blood 10/10/2020 9:19 PM EDT 10/10/2020 9:19 PM EDT Ismael Wu MD POINT OF CARE TEST ORDERABLES [facility] [place] [address] * XR Hip 1 view Left (10/10/2020 [...] questions please contact the health child care giver that requested your imaging first. ? Electronically signed by: [facility] ([phone]), at 10/11/2020 8:31 AM Narrative 10/11/2020 8:31 [...] have questions please contactthe health child care giver that requested your imaging first. Electronically signed by: Claudio Ward MD, [facility]([phone]), at 10/11/2020 8:31 AM Ismael Wu MD [...] questions please contact the health child care giver that requested your imaging first. ? Electronically signed by: Claudio Ward MD, [facility] ([phone]), at 10/11/2020 8:30 AM Narrative 10/11/2020 8:30 [...] have questions please contactthe health child care giver that requested your imaging first. Electronically signed by: Claudio Ward MD, [facility]([phone]), at 10/11/2020 8:30 AM Ismael Wu MD [...] questions please contact the health child care giver that requested your imaging first. ? Electronically signed by: Claudio Ward MD, [facility] ([phone]), at 10/11/2020 8:29 AM Narrative 10/11/2020 8:29 [...] have questions please contactthe health child care giver that requested your imaging first. Electronically signed by: Claudio Ward MD, [facility]([phone]), at 10/11/2020 8:29 AM Ismael Wu MD IMG DX ORDERABLES * POCT Glucose (10/10/2020 3:20 PM EDT) Glucose, POC 119 65 - 199 mg/dL [facility] Comment: Supplemental ranges: <140 mg/dL before meals <180 mg/dL all other times of the day Blood 10/10/2020 3:20 PM EDT 10/10/2020 3:20 PM EDT Ismael Wu MD POINT OF CARE TEST ORDERABLES Performing Organization Address City/State/[facility] Co de Phone Number [facility] [place] [address] * SCAN DOC: IMPLANTABLE DEVICES (10/10/2020 12:00 [...] Procedure), Routine 1454 (Given - Provider: Therese Thomas, AYE) acetaminophen (Tylenol) tablet 1,000 mg 1,000 mg, [...] not met) 0829 (Given - Provider: Savanah Guadalupe, AYE) aspirin EC tablet 81 mg 81 [...] Diallo, AYE) 0608 (New Bag - Provider: iQan Santiago, AYE)0638 (Stopped - Provider: Savanah Guadalupe, AYE)1312 (New Bag - Provider: Savanah Guadalupe, AYE)1342 (Stopped - Provider: Savanah Guadalupe, AYE) celecoxib (CeleBREX) capsule 200 mg 200 mg, Oral, 2 TIMES DAILY, First dose on Sat10/11/20 at 0900, Until Discontinued, Routine 0854 (Given - Provider: Linsey Zavala LPN)2006 (Given - Provider: Boone Gonzalez, AYE) 0828 (Given - Provider: Savanah Guadalupe, AYE) celecoxib (CeleBREX) capsule 400 mg (COMPLETED) 400 mg, Oral, ONCE, 1 dose, On Sat10/10/20 at 1500, Administer on arrival to Same Day Program, Day of Surgery (Day of Procedure), Routine 1453 (Given - Provider: Therese Thomas RN) clopidogreL (Plavix) tablet 75 mg (COMPLETED) 75 mg, Oral, ONCE, 1 dose, On Sat10/11/20 at 0700, Routine 06 (Given - Provider: Qian Santiago RN) clopidogreL (Plavix) tablet 75 mg 75 mg, Oral, DAILY, First dose on Sat10/12/20 at 0900, Until Discontinued, Routine 08 (Given - Provider: Savanah Guadalupe RN) [id number] ketamine 10 mg/mL or placebo injection 57 [...] hours., Routine 0026 (Given - Provider: Junaid Diallo, RN - Comment: [phone] (Given - Provider: Qian Santiago, AYE)0858 (Given - Provider: Linsey Zavala LPN)1154 (Given [...] Unit), Routine 0937 (Given - Provider: Savanah Guadalupe RN)2008 (Given - Provider: Boone Gonzalez RN) 08 [...] AYE) Continuous Medication Order 10/10/2020 10/11/2020 10/12/2020 [id number] ketamine or placebo 250 mg in sodium [...] Until Sat10/12/20 at 1518, Recovery (Recovery-Hospital Unit) 3 (New Bag - Provider: Chen Arrieta RN) 1002 (Stopped - Provider: Savanah Guadalupe RN - Comment: Pt IV symptomatic)1813 (New Bag - Provider: Savanah Guadalupe RN) 0428 (New Bag - Provider: Boone Gonzalez RN)0835 (Stopped - Provider: Savanah Guadalupe RN) PRN [...] Unit), Routine Linked Groups Order Group 1: [id number] ketamine 10 mg/mL or placebo injection 57 [...] by Dr. Rodrick Chisholm. Acknowledged And INV Y71273 patient's specific med #2 1 each () [...] mg/dL in 2 hours., Routine Group 4: [id number] ketamine or placebo 250 mg in sodium chloride 0.9% 250 mL infusion (CANCELED)Jump to med 5 mcg/kg/min ? 114.8 kg (34.44 mL/hr, rounded to 34.4 mL/hr), Intravenous, CONTINUOUS, Starting on Sat10/10/20 at 0700, Until Sat10/12/20 at 0611, 0.5 mg/kg bolus followed by a 5 mcg/kg/min continuous infusion. total dose (bolus plus continuous infusion) should not exceed 500 mg And INV [id number] patient's specific infusion med #2 1 each [...] PRN, Starting on Sat10/11/20 at 0336, Until 10/12/20 at 1518, Nausea, May repeat times one in 30 minutes if ineffective. If multiple antiemetics are ordered, use ondansetron first, Recovery (Recovery-Hospital Unit) documented in this encounter Care Teams Rotor Casting Machine Setup Operator Relationship Specialty Start Date End Date Alo Carey DO [address] [place] [address] [place] [phone] PCP - General Internal Medicine 08/31/20 07/03/23 documented as of this encounter
--- OUTSIDE RECORDS SUMMARY | 2024-03-12 11:01 | XMS_ITS | Encounter Summary ---
[place] [address] Care Team Providers Care Chemical Equipment Controller Name Role Phone YungAlo santiago Primary Care Provider [phone] Encounter Details Date Type Department Care Team (Latest Contact Info) Description 10/06/2020 2:00 PM EDT Clinical [place] [phone] Primary osteoarthritis of left hip; Left leg [...] PATabbreviated questionnaire reviewed with patient and ROBEL Barroneen while in Pre Admission testing.Pt has had [...] asked Makeda Navarro To requests records from [facility]. 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 [facility] (Carotid surgeries) Dr Bustamante [phone]. Dr Borrero aware we have requested records. documented in this encounter Plan of Treatment Upcoming Encounters Date Type Department Care Team (Late st Contact Info) Description 03/24/2024 9:00 AM EST TH Visit (TeleHealth) Radiation Oncology at [address] [phone] Ping Moore PA [facility] HEMATOLOGY AND ONCOLOGY [place], [place] [phone] 03/26/2024 9:30 AM EST Office Visit Hematology/Oncology at [address] [phone] Yessi Renee APRN [address] [place] [address] DR [place] [address] 03/26/2024 9:30 AM EST Infusion Hematology Oncology at [address] [phone] 04/09/2024 9:30 AM EST Office Visit Hematology/Oncology at [address] [phone] Cl Hess MD [facility] [place] [address] [address] HEMATOLOGY AND ONCOLOGY [place], [place] [address] [phone] 04/09/2024 10:00 AM EST Infusion Hematology Oncology at [address] [phone] 04/23/2024 9:30 AM EST Office Visit Hematology/Oncology at [address] [phone] Cl Hess MD [facility] [place] [address] [address] HEMATOLOGY AND ONCOLOGY [place], [place] [address] 04/23/2024 10:00 AM EST Infusion Hematology Oncology at [address] [address] 05/18/2024 4:30 PM EDT TH Visit (TeleHealth) [place] [address] Malachi Rothman MD [facility] [place] [address] documented as of this encounter Procedures Procedure [...] (Bezet) 436 ms MUSE SYSTEM Calculated P [place] 62 degrees MUSE SYSTEM Calculated R [place] -11 degrees MUSE SYSTEM Calculated T [place] 37 degrees MUSE SYSTEM INTERPRETATION Normal sinus [...] limb documented in this encounter Care Teams Chemical Equipment Controller Relationship Specialty Start Date End Date Alo Carey DO [address] [place] [address] [place] [address] PCP - General Internal Medicine 08/31/20 07/03/23 documented as of this encounter
--- OUTSIDE RECORDS SUMMARY | 2024-03-12 11:01 | XMS_ITS | Referral Summary ---
Author Organization [facility] Address [address] [place] [address] Care Team Providers Care Electronic Science Teacher Name Role Phone Tristen Hunter MD Primary Care Provider [phone] Encounters Date Type Department Care Team Description 02/07/2024 Telephone [facility] Ophthalmology - Main [place] [address] [place], [place] [address] Barby Guzman MD Diagnostic Imaging Report 12/27/2023 Telephone [facility] Ophthalmology - [address] [place], [place] [phone] Wero Avilez MD Diagnostic Imaging Report 12/24/2023 13:00 EDT - 12/24/2023 23:59 EDT Hospital Encounter [facility] MRI [address] [place] [address] Vision loss of right eye; Optic atrophy Discharge Disposition: Home or Self Care 12/18/2023 Telephone [facility] Ophthalmology - [address] [place] [address] Wero Avilez MD Other from Last 3 Months Allergies Active Allergy Reactions Criticality Noted Date [...] Tablet by mouth every morning. Active omega 8-jrl-vss-fish oil (FISH OIL) 100-160-1,000 mg capsule Take [...] Orientation Not on file Plan of Treatment Upcoming Encounters Date Type Department Care Team (Late st Contact Info) Description 03/30/2024 9:15 EST Office Visit [facility] Ophthalmology - [address] [phone] Uday Reece MD [address] [place] [address], [address] [place] [address] 04/15/2024 12:30 EST Office Visit [facility] Ophthalmology - Main [place] [address] [place] [address] Barby Guzman MD [address] [facility], [address] [place] [address] Medical Devices Implanted Type Area Fabric Stretcher Device Identifier Shelf Expiration Date Model / Serial / Lot Enroute Carotid Stent Mr Cond 1.5/3t Stent Description:Passive Implant: Make: [employer] Model: Enroute transcarootid stent Conditional Field Strength: 1.5/3T INGACIO/B1 + marianela Restrictions: WB IGNACIO 2 W/kg Spatial Gradient Limit: 4000 G/cm Gradient Slew Rate (if listed): Implant (stent) length restrictions (if listed): 135 cm MG R.T. (MR)(R)(MRSO) 12/24/2023 Wallflex Biliary Rx Stent-Conditonal 1.5t/3t [employer] Description:Passive Implant: Make: [employer] Model: Wallflex RX Biliary Stent Conditional Field [...] the sequela of prior inflammation or injury. [id number] Narrative 12/24/2023 16:46 EDT EXAM: MRI ORBITS [...] EXTRACRANIAL SOFT TISSUES: Unremarkable. Resulting Agency Comment [id number] Procedure Note Keon Reyna MD - 12/24/2023 [...] representing the sequela of priorinflammation or injury. [id number] Wero Avilez MD IMG MRI ORDERABLES Final Result from Last 3 Months Insurance MEDICARE [facility] Care Teams Electronic Science Teacher Relationship Specialty Start Date End Date Tristen Hunter MD [address] [place] [address] PCP - General Family Medicine - Primary Care 12/03/23
--- OUTSIDE RECORDS SUMMARY | 2024-03-12 11:01 | XMS_ITS | Encounter Summary ---
Author Organization [facility] [place] [address] Care Team Providers Care Grass Farmer Name Role Phone Unavailable Primary Care Provider Unavailabl e Encounter Details Date Type Department Care Team (Late st Contact Info) Description 11/26/2019 Ancillary Procedure Radiology Library at [facility] [place] [address] Alo Carey, DO [address] [place] [address] Social History Tobacco Use Types Packs/Day [...] TH Visit (TeleHealth) Radiation Oncology at [address] [phone] Ping Moore PA [facility] [place] [address] 03/26/2024 9:30 AM EST Office Visit Hematology/Oncology at [address] [phone] HEMATOLOGY AND ONCOLOGY [place], [place] [address] 03/26/2024 9:30 AM EST Infusion Hematology Oncology at [address] [phone] 04/09/2024 9:30 AM EST Office Visit Hematology/Oncology at [address] [phone] Cl Hess MD [facility] [address] [address] HEMATOLOGY AND ONCOLOGY [place], [place] [address] 04/09/2024 10:00 AM EST Infusion Hematology Oncology at [address] [phone] 04/23/2024 9:30 AM EST Office Visit Hematology/Oncology at [address] [phone] Cl Hess MD [facility] [address] HEMATOLOGY AND ONCOLOGY [place], [place] [address] 04/23/2024 10:00 AM EST Infusion Hematology Oncology at [address] [phone] 05/18/2024 4:30 PM EDT TH Visit (TeleHealth) [place] [address] Malachi Rothman MD [facility] [place] [address] documented as of this encounter Procedures Procedure Name Priority Date/Time Associated Diagnosis Comments FILM LIBRARY STORAGE ONLY MR HEAD Routine 11/26/2019 12:00 AM EDT documented in this encounter Results * Film Library- Storage Only MR Head (11/26/2019 12:00 AM EDT) Narrative [facility] - 01/20/2021 12:11 PM EST This exam is auto-finalizing. It's purpose is for storage only. Alo Carey DO IMRk FILM LIBRARY ORD ERABLES [place], [place] documented in this encounter Visit Diagnoses Not on filedocumented in this encounter
--- OUTSIDE RECORDS SUMMARY | 2024-03-12 11:01 | XMS_ITS | Encounter Summary ---
[place] [address] Care Team Providers Care Medical Research Assistant Name Role Phone Alo Carey DO Primary Care Provider [phone] Reason for Visit * Reason Comments Establish Care BILATERAL HIP PAIN// DISCUSSION OF JIMI * Consultation (Routine) - Closed Specialty Diagnoses / Procedures Referred By Marques livingston Referred To Contact Orthopaedics Diagnoses Pain in unspecified hip BILATERAL HIP PAIN Alo Carey, [address] [place] [phone] [facility] [address] [place] [phone] Referral ID Status Reason Start Date Expiration Date V isits Requested Visits Authorized [id number] Closed Consult, [facility] PCP Updated and/or Approved 08/18/2020 08/18/2021 6 6 Encounter Details Date Type Department Care Team (Latest Contact Info) Description 09/15/2020 9:00 AM EDT Office [place] [address] Ismael Wu MD [facility] [place] [address] Left leg pain (Primary Dx); Primary osteoarthritis [...] Adult Joint Reconstructive Surgery Subjective: RE: Wero Sadelr DIAGNOSIS: Osteoarthritis (M19.10) , LEFT hip > [...] a dye used during vascular procedure at [facility] in [place] FAMILY HISTORY: Family history was reviewed with patient and is as listed below. Family History Problem Relation Age of Onset ??? Diabetes Father SOCIAL HISTORY: The patient lives in [place]. He had lived for many years in [place]. His within the last year. He is [...] less than $20,000 # People Supported 2 Montserratian, , No, not Montserratian// Race White Health Literacy Not at all Currently working No Not working because: Retired [facility] Response 09/15/[address] HOOS JR Scores [address] [facility] Response 09/15/2020 HOOS JR Scores 49.86 Objective: [...] 5 30 40 20 Hip Right Left [facility] positive positive Passive Straight Leg Raise negative [...] LEFT JIMI, posterior approach, [employer] [facility] [place] Thorough documentation of vascular status pre-operatively in light of history of PVD. Ismael Wu MD documented in this encounter Plan of Treatment Upcoming Encounters Date Type Department Care Team (Late st Contact Info) Description 03/24/2024 9:00 AM EST TH Visit (TeleHealth) Radiation Oncology at [address] [phone] Ping Moore PA [facility] DR [place] [address] 03/26/2024 9:30 AM EST Office Visit Hematology/Oncology at [address] [phone] Yessi Renee APRN [address] [place] [address] DR HEMATOLOGY AND ONCOLOGY [place], [place] [address] 03/26/2024 9:30 AM EST Infusion Hematology Oncology at [address] [phone] 04/09/2024 9:30 AM EST Office Visit Hematology/Oncology at [address] [phone] Cl Hess MD [facility] [place] [address] [address] HEMATOLOGY AND ONCOLOGY [place], [place] [address] 04/09/2024 10:00 AM EST Infusion Hematology Oncology at [address] [phone] 04/23/2024 9:30 AM EST Office Visit Hematology/Oncology at [address] [phone] Cl Hess MD [facility] [place] [address] [address] HEMATOLOGY AND ONCOLOGY [place], [place] [address] 04/23/2024 10:00 AM EST Infusion Hematology Oncology at [address] [phone] 05/18/2024 4:30 PM EDT TH Visit (TeleHealth) [place] [address] Malachi Rothman MD [facility] [place] [address] documented as of this encounter Results * [...] have questions please contact the health care taker that requested your imaging first. ? Electronically signed by: Claudio Ward MD, [facility] ([phone]), at 11/17/2020 12:27 PM Narrative 11/17/2020 12:27 [...] who have questions please contactthe health care taker that requested your imaging first. Ismael Wu MD IMG DX ORDERABLES * APTT (10/06/2020 2:59 PM EDT) [facility] Partial Thromboplastin Time 32 25 - 37 [...] MD HEMATOLOGY ORDERABL ES Performing Organization Address [facility] de Phone Number [facility] [place] [address] * Prothrombin Time (10/06/2020 2:59 PM EDT) [...] MD HEMATOLOGY ORDERABL ES Performing Organization Address [facility] de Phone Number [facility] [place] [address] * Basic Metabolic Panel (non-fasting) (10/06/2020 2:59 [...] CHEMISTRY ORDERABLE S [facility] [place] [address] * EKG 12 Lead (10/06/2020 2:46 PM EDT) Ventricular rate 71 BPM MUSE SYSTEM Atrial Rate 71 BPM MUSE SYSTEM P-R Interval 176 ms MUSE SYSTEM QRS Duration 98 ms MUSE SYSTEM Q-T Interval 402 ms MUSE SYSTEM QTC Calculated (Bezet) 436 ms MUSE SYSTEM Calculated P [place] 62 degrees MUSE SYSTEM Calculated R [place] -11 degrees MUSE SYSTEM Calculated T [place] 37 degrees MUSE SYSTEM INTERPRETATION Normal sinus [...] have questions please contact the health care taker that requested your imaging first. ? Electronically signed by: Shelly Richards MD, [facility] ([phone]), at 09/15/2020 11:17 AM Narrative 09/15/2020 11:17 [...] who have questions please contactthe health care taker that requested your imaging first. Ismael Wu [...] limb documented in this encounter Care Teams Medical Research Assistant Relationship Specialty Start Date End Date Alo Carey DO [address] [place] [address] [place] [address] PCP - General Internal Medicine 08/31/20 07/03/23 documented as of this encounter
--- OUTSIDE RECORDS SUMMARY | 2024-03-12 11:01 | XMS_ITS | Encounter Summary ---
Author Organization [facility] Address [facility] [place] [address] Care Team Providers Care Spiritual Counselor Name Role Phone YungAlo santiago Primary Care Provider [phone] Reason for Visit * Reason Comments Pre-op Exam Left JIMI DOS 08.0 9.21 Encounter Details Date Type Department Care Team (Latest Contact Info) Description 10/06/2020 4:00 PM EDT Office [place] [phone] Pedro Mai MD [facility] [place] [address] Preop examination; Primary osteoarthritis of left hip [...] for consultation at the request of his surgeonDr. Ismael Wu for preoperative risk stratification and [...] brain and neuro and ophthalmology evaluations with [facility] as resultant diagnosis. From his PCP list: [...] Rate Last Admin ??? [START ON 10/10/2020] C86280 ketamine 10 mg/mL or placebo injection 57 mg 0.5 mg/kg/dose Intravenous Once Rodrick Chisholm MD And ??? [START ON 10/10/2020] INV S68086 patient's specific med #2 1 each 1 Syringe Intravenous Once Rodrick Chisholm MD ??? [START ON 10/10/2020] O32058 ketamine or placebo 250 mg in sodium chloride 0.9% 250 mL infusion 5mcg/kg/min Intravenous Continuous Rodrick Chisholm MD And ??? [START ON 10/10/2020] INV S69221 patient's specific infusion med #2 1 each [...] up to 21.2. Has prostate cancer in 04/15 [address] has [address] Dr[address] Myers here in [place]. He has MRI planned. Skin: Negative for [...] a dye used during vascular procedure at [facility] in [place] Physical Exam: Last Set of Vitals and [...] TH Visit (TeleHealth) Radiation Oncology at [address] [phone] Ping Moore PA [facility] DR HEMATOLOGY [place] [address] 03/26/2024 9:30 AM EST Office Visit Hematology/Oncology at [address] [phone] [address] HEMATOLOGY AND ONCOLOGY [place], [place] [address] 03/26/2024 9:30 AM EST Infusion Hematology Oncology at [address] [phone] 04/09/2024 9:30 AM EST Office Visit Hematology/Oncology at [address] [phone] Cl Hess MD [facility] [place] [address] [address] HEMATOLOGY AND ONCOLOGY [place], [place] [address] 04/09/2024 10:00 AM EST Infusion Hematology Oncology at [address] [phone] 04/23/2024 9:30 AM EST Office Visit Hematology/Oncology at [address] [phone] Cl Hess MD [facility] [place] [address] Yessi Renee APRN [address] [place] [address] [place] [address] 04/23/2024 10:00 AM EST Infusion Hematology Oncology at [address] [phone] 05/18/2024 4:30 PM EDT TH Visit (TeleHealth) [place] [address] Malachi Rothman MD [facility] [place] [address] documented as of this encounter Visit Diagnoses Diagnosis Preop examination Preoperative examination, unspecified Primary osteoarthritis of left hip Primary localized osteoarthrosis, pelvic region and thigh documented in this encounter Care Teams Spiritual Counselor Relationship Specialty Start Date End Date Alo Carey DO [address] [place] [address] [place] [phone] PCP - General Internal Medicine 08/31/20 07/03/23 documented as of this encounter
--- OUTSIDE RECORDS SUMMARY | 2024-03-12 11:01 | XMS_ITS | Encounter Summary ---
Author Organization [facility] Address [facility] [place] [address] Care Team Providers Care Physical Metallurgist Name Role Phone YungAlo santiago Primary Care Provider [phone] Encounter Details Date Type Department Care Team (Latest Contact Info) Description 09/15/2020 9:45 AM EDT - 09/15/2020 11:59 PM EDT Hospital Encounter XRay at [address] [place] [phone] Ismael Wu MD [facility] [place] [address] Primary osteoarthritis of both hips Discharge Disposition: [...] TH Visit (TeleHealth) Radiation Oncology at [address] [phone] Ping Moore PA [facility] DR HEMATOLOGY [place] [address] 03/26/2024 9:30 AM EST Office Visit Hematology/Oncology at [address] [phone] Yessi Renee APRN [address] [place] [address] DR HEMATOLOGY AND ONCOLOGY [place], [place] [phone] 03/26/2024 9:30 AM EST Infusion Hematology Oncology at [address] [phone] 04/09/2024 9:30 AM EST Office Visit Hematology/Oncology at [address] [phone] Cl Hess MD [facility] [place] [address] Yessi Renee APRN [address] [place] [address] 04/09/2024 10:00 AM EST Infusion Hematology Oncology at [address] [phone] 04/23/2024 9:30 AM EST Office Visit Hematology/Oncology at [address] [phone] Cl Hess MD [facility] [place] [address] [address] HEMATOLOGY AND ONCOLOGY [place], [place] [address] 04/23/2024 10:00 AM EST Infusion Hematology Oncology at [address] [phone] 05/18/2024 4:30 PM EDT TH Visit (TeleHealth) [place] [address] Malachi Rothman MD [facility] [place] [address] documented as of this encounter Procedures Procedure [...] questions please contact the health home care manager that requested your imaging first. ? Electronically signed by: Shelly Richards MD, [facility] ([phone]), at 09/15/2020 11:17 AM Narrative 09/15/2020 11:17 [...] have questions please contactthe health home care manager that requested your imaging first. Electronically signed by: Shelly Richards MD, [facility] ([phone]), at 09/15/2020 11:17 AM Ismael Wu MD IMG DX ORDERABLES documented in this encounter Visit Diagnoses Diagnosis Primary osteoarthritis of both hips Primary localized osteoarthrosis, pelvic region and thigh documented in this encounter Care Teams Physical Metallurgist Relationship Specialty Start Date End Date Alo Carey DO [address] [place] [address] [place] [address] PCP - General Internal Medicine 08/31/20 07/03/23 documented as of this encounter
--- OUTSIDE RECORDS SUMMARY | 2024-03-12 11:01 | XMS_ITS | Encounter Summary ---
Author Organization [facility] [place] [address] Care Team Providers Care Speech Clinician Name Role Phone CherryAlo Lon RUTHERFORD Primary Care Provider [phone] Reason for Visit * Auth/Cert Specialty Diagnoses / Procedures Referred By Marques livingston Referred To Contact Diagnoses Left hip osteoarthritis Procedures PRO TOTAL HIP ARTHROPLASTY TOTAL HIP ARTHROPLASTY - POSTERIOR (WRVU 20.72) MODIFIER ACTIS HIP STEM DEPUY MODIFIER PINNACLE ACETABULUM DEPUY Referral ID Status Reason Start Date Expiration Date Visits Re quested Visits Authorized [id number] 1 1 Encounter Details Date Type Department Care Team (Late st Contact Info) Description 10/10/2020 4:45 PM EDT Anesthesia [place] [phone] Natasha Solares MD Chow, Vinca W, MD [facility] [place] [address] Anesthesia Record Procedure Summary Procedure Name Responsible [...] post-operative course (including disposition.) Natasha Solares MD 185 Handoff Intra-procedure anesthesia care was transferred after [...] dextrose 5% 100 mL infusion 2 g W83094 ketamine 10 mg/mL or placebo inje ction 57 mg 57 mg INV V29162 patient's specific infusion m ed #2 1 each 0 Syringe W99503 ketamine or placebo 250 mg in sod [...] 10/10/20; 1600; radi al artery, left; 10/10/20; 21410/10/20 1600 by Judith Bergeron RN 10/10/20 2147 by Judith Bergeron RN Incision 10/10/20; 1756; Left , lateral; hip; LDA not present upon assessment; 02/02/21; 0820 10/10/20 1756 by Nemo Ignacio RN 02/02/21 08 by Briana Burton RN (RETIRED) Peripheral IV Line - Single Lumen 10/10/20; 1900 (in place on arrival to pacu); metacarpal vein (top of hand), right; [id number] catheter system; 20 gauge; 10/12/20; 1206 10/10/20 1900 by Chen Arrieta RN 10/12/20 1206 by Savanah Guadalupe RN documented in this [...] Procedure Summary Date: 10/10/20 Room / Location: [address] MAIN OR Anesthesia Start: 1644 Anesthesia [...] Anesthesiologist: Natasha Solares MD; Milton Smalls MD MANAGER CONTENT: Delmi Garcia CRNA; Madan Luke CRNA Wallpaper Cleaner: Vidal Watson MD Vitals Value Taken Time BP 146/66 10/10/20 2215 Temp 36.2 ??C (97.2 ??F) 10/10/20 2215 Pulse 86 10/10/20 2220 Resp 20 10/10/20 2220 SpO2 97 % 10/10/20 2248 Pain Level 0 10/10/20 2219 Vitals shown include unvalidated device data. Patient Location: PACU[facility] Level of Consciousness: Awake and Alert [...] of insertion: Other (add comment) Performed by: Resident/MANAGER CONTENT: Second Resident/MANAGER CONTENT: SRNA: Fellow: Attending Physician: Milton Smalls MD [...] a dye used during vascular procedure at [facility] Medications: MAR and/or home medications have been [...] vascular procedure at [facility] in [place] Labs: Lab Results Component Value Date HGB 14.7 10/06/2020 PLATELET 190 10/06/2020 INR 1.0 10/06/2020 NA 141 10/06/2020 K 4.3 10/06/2020 CREATININE 0.98 10/06/2020 10/06/20 1459 ABORH O Pos Medications: ??? (START ON 10/10/2020) I51692 ketamine 10 mg/mL or placebo injection 57 mg AND (START ON 10/10/2020) INV M57932 patient's specific med #2 1 each??? (START ON 10/10/2020) K37788 ketamine or placebo 250 mg in sodium chloride 0.9% 250 mL infusion AND (START ON 10/10/2020) INV R94066 patient's specific infusion med #2 1 each??? [...] A-line Access: PIV x2 Vidal Watson MD Wallpaper Cleaner, CA1 (PGY2) Pager # [phone] The patient was informed of the risks, [...] blood products. Plan discussed with attending and MANAGER CONTENT. Anesthesia Screening documented in this encounter Plan of Treatment Upcoming Encounters Date Type Department Care Team (Late st Contact Info) Description 03/24/2024 9:00 AM EST TH Visit (TeleHealth) Radiation Oncology at [address] [phone] Ping Moore PA [facility] [place] [address] 03/26/2024 9:30 AM EST Office Visit Hematology/Oncology at [address] [phone] Yessi Renee APRN [address] [place] [address] DR HEMATOLOGY AND ONCOLOGY [place], [place] [phone] 03/26/2024 9:30 AM EST Infusion Hematology Oncology at [address] [phone] 04/09/2024 9:30 AM EST Office Visit Hematology/Oncology at [address] [phone] 62 Cl Hess MD [facility] [place] [address] [address] HEMATOLOGY AND ONCOLOGY [place], [place] [phone] 04/09/2024 10:00 AM EST Infusion Hematology Oncology at [address] [phone] 04/23/2024 9:30 AM EST Office Visit Hematology/Oncology at [address] [phone] Cl Hess MD [facility] [place] [address] [address] HEMATOLOGY AND ONCOLOGY [place], [place] [address] 04/23/2024 10:00 AM EST Infusion Hematology Oncology at [address] [phone] 05/18/2024 4:30 PM EDT TH Visit (TeleHealth) [place] [address] Malachi Rothman MD [facility] [place] [address] documented as of this encounter Procedures Procedure Name Priority Date/Time Associated Diagnosis Comments [id number] LINE-ANES ONLY Routine 10/10/2020 5:47 PM EDT documented in this encounter Results * [id number] LINE-ANES ONLY (10/10/2020 5:47 PM EDT) Narrative [...] of insertion: ??Other (add comment) Performed by: Resident/MANAGER CONTENT: ?Second Resident/MANAGER CONTENT: ??SRNA: ?Fellow: ?Attending Physician: ? Milton Smalls [...] Given 10/10/2020 5:37 PM EDT 2 g I78789 ketamine 10 mg/mL or placebo injection 57 [...] Given 10/10/2020 5:29 PM EDT 57 mg K00200 ketamine or placebo 250 mg in sodium [...] on Sat10/10/20 at 2035, Until Sat10/10/20 at 2101, Anesthesia Intra-op, Routine Given 10/10/2020 8:35 PM EDT 8 mg ePHEDrine sulfate (5 mg/mL) multi-dose injection Intravenous, PRN, Starting on Sat10/10/20 at 1807, Until Sat10/10/20 at 210, Anesthesia Intra-op, Routine Given 10/10/2020 6:07 PM EDT 5 mg fentaNYL (pf) (50 mcg/mL) multi-dose injection Intravenous, PRN, Starting on Sat10/10/20 at 1753, Until Sat10/10/20 at 210, Anesthesia Intra-op, Routine Given 10/10/2020 5:59 PM EDT 50 mcg Given 10/10/2020 5:53 PM EDT 50 mcg glycopyrrolate (Robinul) (0.2 mg/mL) multi-dose injection Intravenous, PRN, Starting on Sat10/10/20 at 2026, Until Sat10/10/20 at 2102, Anesthesia Intra-op, Routine [...] injection Intravenous, PRN, Starting on Sat10/10/20 at 203, Until Sat10/10/20 at 210, Anesthesia Intra-op, Routine [...] at 2102, Anesthesia Intra-op, Routine Given 10/10/2020 5:27 PM EDT 50 mg neostigmine (Bloxiver) (1 mg/mL) injection Intravenous, PRN, Starting on Sat10/10/20 at 2026, Until Sat10/10/20 at 2102, Anesthesia Intra-op, Routine Given 10/10/2020 8:26 PM EDT 5 mg ondansetron (pf) (Zofran) (2 mg/mL) injection Intravenous, PRN, Starting on Sat10/10/20 at 2031, Until Sat10/10/20 at 210, Anesthesia Intra-op, Routine Given 10/10/2020 8:31 PM [...] on Sat10/10/20 at 1752, Until Sat10/10/20 at 210, Anesthesia Intra-op, Routine New Bag 10/10/2020 5:52 PM EDT 25 mcg/kg/min 17.22 mL/hr rocuronium (Zemuron) (10 mg/mL) multi-dose injection Intravenous, PRN, Starting on Sat10/10/20 at 1727, Until Sat10/10/20 at 2102, Anesthesia Intra-op, Routine Given 10/10/2020 7:30 PM EDT 20 mg Given 10/10/2020 6:31 PM EDT 20 mg Given 10/10/2020 5:27 PM EDT 50 mg documented in this encounter Care Teams Speech Clinician Relationship Specialty Start Date End Date Alo Carey DO [address] [place] [address] [place] [address] PCP - General Internal Medicine 08/31/20 07/03/23 documented as of this encounter
--- OUTSIDE RECORDS SUMMARY | 2024-03-12 11:01 | XMS_ITS | Encounter Summary ---
[place] [address] Care Team Providers Care Production Line Welder Name Role Phone Alo Carey DO Primary Care Provider [phone] Reason for Visit * Auth/Cert Specialty Diagnoses / Procedures Referred By Marques livingston Referred To Contact Diagnoses Left hip osteoarthritis Procedures PRO TOTAL HIP ARTHROPLASTY TOTAL HIP ARTHROPLASTY - POSTERIOR (WRVU 20.72) MODIFIER ACTIS HIP STEM DEPUY MODIFIER PINNACLE ACETABULUM DEPUY Referral ID Status Reason Start Date Expiration Date Visits Re quested Visits Authorized [id number] 1 1 Encounter Details Date Type Department Care Team (Late st Contact Info) Description 10/10/2020 3:25 PM EDT - 10/10/2020 6:55 PM EDT [place] [id number] Ismael Wu MD [facility] [address] [place] [address] TOTAL HIP ARTHROPLASTY - POSTERIOR (WRVU 19.6) [...] in this encounter Discharge Summaries * Liz Grimes P, MECHANIC FIELD SERVICE - 10/11/2020 12:39 PM EDT Discharge Summary Patient Name: Wero Sadler Patient Age: 70 y.o. Language: French Race: White Ethnicity: Not nor Admit date: 10/10/2020 Discharge date and time: 10/12/2020 Attending Physician: Ismael Wu MD Discharge Physician: Ismael Wu MD Follow-up Recommendations for Providers: 1. The patient will need to f/u with his Urologist, Dr. Myers, on 10/17/2020, for a voidingtrial. See discharge instructions for additional details. Future Appointments Date Time Provider Department Center 11/17/2020 12:30 PM [facility] DX ROOM 6 Xray [facility] Rad 11/17/2020 1:30 PM Ismael Wu MD [facility] ORTH 3C [facility] Inpatient Provider Contact Information: Ismael Wu MD Orthopedics: [phone] After hours and weekends, call [facility] Electronics Worker, , and have the Orthopedic resident paged. [...] f/u with his Urologist, Dr. Myers, on 10/17/ for a voiding trial. He will continue [...] patients who have questions pleasecontact the health skin care technician that requested your imaging first. ay Pelvis [...] questions please contact the health skin care technician that requested your imaging first. Electronically signed by: Claudio Ward MD, [facility] ([phone]), at 10/11/2020 8:30 AM XRay Hip 1 [...] questions please contact the health skin care technician that requested your imaging first. ay Hip [...] questions please contact the health skin care technician that requested your imaging first. Pending Studies and Lab Data at Discharge: None Transfusions: No Discharge Conditions/Prognosis: Stable, awake, and alert. Mobilizing as noted above, pain controlled on oral medications. Discharge to: Home with VNA. Updated Allergies/ADRs: Allergies Allergen Reactions ??? Other [Unclassified Drug] Had reaction to a dye used during vascular procedure at [facility] in [place] Immunizations Given this Hospitalization: There is no [...] bowel movement. You can also take an nwgq-ikb-cudbtuv medication, Miralax if needed to combat constipation. [...] as much as possible. Call your doctor ([phone]) if you develop: 1. Fever greater than 100.5 2. Severe nausea or vomiting 3. Increasing pain that is not controlled by pain medications 4. Increasing redness, swelling, or drainage from incisions 5. Change in sensation FOLLOW-UP APPOINTMENTS: 1. You will have follow-up appointments at [facility] as indicated below in Future Appointment and Orders. 2. You will need to have x-rays prior to your follow-up appointment on 11/17/2020. Please come to Radiology, desk 3T, 1 hour BEFORE that appointment for these x-rays. Future Appointments Date Time Provider Department Center 11/17/2020 12:30 PM [facility] DX ROOM 6 Xray [facility] Rad 11/17/2020 1:30 PM Ismael Wu MD [facility] ORTH [address] [place] [address] If you have questions or concerns: Saturday through Saturday, 8 AM - 5 PM, please call Dr. Ismael Wu MD's office at . If it is after 5 PM, the weekend, or holidays, please call and ask to speak with theOrthopedic resident on-call. General Instructions None Future Appointments and Orders Future Appointments and Orders Future Appointments Provider Department Dept Phone 11/17/2020 12:30 PM [facility] DX ROOM 6 XRay at [facility] Arrive at: Home Care Aide Area [phone] Please go to Home Care Aide Area ([place] Location). 11/17/2020 1:30 PM Ismael Wu MD Orthopaedics at [facility] Arrive at: Home Care Aide Area [phone] Future Orders Complete By Expires Referral to Home Health - at DISCHARGE [OHL1215 CPT(R)] As directed Process Instructions: Scheduling Instructions: Comments: DOCUMENTATION FOR [facility]NA SERVICES (INCLUDING PATIENTS WITH MEDICARE COVERAGE BEING DISCHARGED HOME WITH VNA SERVICES AND/OR HOSPICE SERVICES) PATIENT'S LOCATION: Wero Sadler Discharge to own home: [address] [place] [address] Stage Electrician's Name: self/patient In discussion with the attending physician, it is certified that this patient is under their care and that they, or a nurse practitioner, clinical nurse specialist or physician's oceanographer assistant who is working directly with them, [...] for home health services. [facility] PHONE: [phone] FAX: [phone] Custodial(SN) eval if indicated on admission visit Witt [...] this patient's PCP: Alo Carey DO [address] [place] [address] All A agencies which cover patient's residence area have been reviewed, either verbally or in writing, and patient/family have chosen the indicated home health agency. Questions: Agency name and contact information: [facility] Patient location post discharge: home What services are requested: Physical Therapy Occupational Therapy Start date: Responsible MD post discharge contact info: Primary Care Provider: Alo Carey DO [phone] Discharge References/Attachments INDWELLING URINARY CATHETER CARE: GENERAL INFO (MALAYSIAN) URINARY RETENTION (MALAYSIAN) documented in this encounter Discharge Instructions * Patient Instructions* Liz Grimes Flores, MECHANIC FIELD SERVICE - 10/11/2020 12:32 PM EDT Activity: 1. [...] bowel movement. You can also take an glku-xic-znjxpmw medication, Miralax if needed to combat constipation. [...] as much as possible. Call your doctor ([phone]) if you develop: 1. Fever greater than 100.5 2. Severe nausea or vomiting 3. Increasing pain that is not controlled by pain medications 4. Increasing redness, swelling, or drainage from incisions 5. Change in sensation FOLLOW-UP APPOINTMENTS: 1. You will have follow-up appointments at [facility] as indicated below in Future Appointment and Orders. 2. You will need to have x-rays prior to your follow-up appointment on 11/17/2020. Please come to Radiology, desk 3T, 1 hour BEFORE that appointment for these x-rays. Future Appointments Date Time Provider Department Center 11/17/2020 12:30 PM [facility] DX ROOM 6 Xray [facility] Rad 11/17/2020 1:30 PM Ismael Wu MD [facility] ORTH 3C [facility] If you have [...] * INDWELLING URINARY CATHETER CARE: GENERAL INFO (MALAYSIAN) * URINARY RETENTION (MALAYSIAN) documented in this encounter Medications at Time [...] ??? sodium chloride 0.9% 1,000 mL (10/12/20 6028) OBJECTIVE: Temp: [36.6 ??C (97.9 ??F)-36.9 ??C [...] Time Provider Department Center 11/17/2020 12:30 PM [facility] DX ROOM 6 MH Xray [facility] Rad 11/17/2020 1:30 PM Ismael Wu MD [facility] ORTH 3C [facility] Associated attestation - Ismael Wu MD - [...] Wu MD, MSc Division of Adult Reconstructive Sales/MarketingHvac Services Professional of Orthopaedics Department of Orthopaedics [facility] [place] [address] [email or web address] * Savanah Guadalupe RN - 10/11/2020 5:44 [...] running. Tolerating carb control diet well. 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 Blood glucose elevated, controlled with insulin. Straight [...] 20.72) performed by Ismael Wu MD at [facility] MA[facility] OR Active Non-Hospital Problems Diagnosis [...] precautions (no adduction, internal rotation, or flexion fzhepk77 degrees, wedge at night) Mobility and Positioning [...] for this consult. Time IN / OUT: 7675-8929 Total Minutes, Physical Therapy: 40 (low complexity) [...] 20.72) performed by Ismael Wu MD at [facility] Social History: Patient lives [...] He reports he has an appointment w/ [employer] and may get a white cane, has areader Communication: WFL Range of motion, strength, coordination: Hand dominance: right Bilateral UEs are within functional limitations LE limitations: s/p L JIMI, enhanced precautions Activities of Daily Living: Self-feeding: seated w/ setup Grooming: standing w/ CGA to SBA and FWW, cue for squaring up Dressing: LB dressing: issued a video intern and soft sockaid, though had difficulty using a soft sockaid (hard sockaids out of stock here)-reported he doesn't wear socks very much and can have assist fornow; donned pants w/ video intern and cues for technique, difficult w/ suspenders [...] and measurable assessment of functional outcome. Pager: [phone] DANNI ORONA OT 10/11/2020 Occupational Therapy Rehabilitation [...] unit/mL) subcutaneous injection vial 1-4 Units ??? [id number] ketamine or placebo 250 mg in sodium chloride 0.9% 250 mL infusion AND INV [id number] patient's specific infusion med #2 1 each ??? sodium chloride 0.9% 1,000 mL (10/10/202132) ??? [id number] ketamine 100 mg/mL or placebo in sodium chloride 0.9% 500 mL infusion Stopped (10/10/202024) And ??? INV E96089 patient's specific infusion med #2 OBJECTIVE: Temp: [...] Time Provider Department Center 11/17/2020 12:30 PM [facility] DX ROOM 6 Xray [facility] Rad 11/17/2020 1:30 PM Ismael Wu MD [facility] ORTH [address] [place] [address] Associated attestation - Ismael Wu MD - [...] Wu MD, MSc Division of Adult Reconstructive Sales/MarketingHvac Services Professional of Orthopaedics Department of Orthopaedics [facility] [place] [address] [email or web address] * Cayetano Tobar MD - 10/11/2020 12:40 [...] unit/mL) subcutaneous injection vial 1-4 Units ??? [id number] ketamine or placebo 250 mg in sodium chloride 0.9% 250 mL infusion AND INV [id number] patient's specific infusion med #2 1 each ??? sodium chloride 0.9% 1,000 mL (10/10/202132) ??? [id number] ketamine 100 mg/mL or placebo in sodium chloride 0.9% 500 mL infusion Stopped (10/10/202024) And ??? INV [id number] patient's specific infusion med #2 OBJECTIVE: Temp: [36.2 ??C (97.2 ??F)-36.9 ??C (98.4 ??F)] Heart Rate: [63-78] Resp: [9] BP: (138-157)/(66-93) Intake/Output Summary (Last 24 hours) [...] Time Provider Department Center 11/17/2020 12:30 PM [facility] DX ROOM 6 MH Xray [facility] Rad 11/17/2020 1:30 PM Ismael Wu MD [facility] ORTH 3C [facility] Associated attestation - Ismael Wu MD - [...] Wu MD, MSc Division of Adult Reconstructive Sales/MarketingHvac Services Professional of Orthopaedics Department of Orthopaedics [facility] [place] [address] [email or web address] * Junaid Diallo RN - 10/10/2020 11:19 [...] in this encounter H&P Notes * Aubrey Quiñnoez MD - 10/10/2020 3:31 PM EDT Patient [...] Wu MD, MSc Division of Adult Reconstructive Sales/MarketingHvac Services Professional of Orthopaedics Department of Orthopaedics [facility] [address] [email or web address] documented in this encounter Miscellaneous Notes * Plan of Care - Boone Gonazlez RN - 10/12/2020 1:55 AM EDTSummary: Nursing [...] care provider on file: Alo Carey DO [phone] Advance Directive on file and Code Status: [...] post-op care and support: (P) Brother and Ajoori-vm-qry (Damian Sadler and Yaquelin) Who will provide [...] current: assist of staff [place] [address] [facility] [place] [address] Supports: patient has two brothers who are [...] referrals are placed. Patient requests referral to [facility]. PHONE: [phone] FAX: [phone] Expected date of discharge: today Referral routed to the Control Integration Engineer for matching with agency/vendor and to provide [...] home via private car when medically ready. manufacturer agent/Hand I Blocker will continue to follow patient???s progress and remain available if situation changes for coordination of care, psychosocial support and/or discharge planning. Patricia Ramirez, RN, [facility] Pager [phone] * Op Note - Ismael Wu MD - 10/10/2020 5:49 PM EDT [facility] Operative Note Patient Name: Wero Sadler : [id number] MR#: [id number] Case Date: 10/10/2020 Surgeon: Surgeon(s) and Role: [...] offset, Size 7; collared, SCOTT coated Acetabulum: Caldwell size 60mm Liner: 36 x 60 neutral liner Femoral Head: 36mm +1.5mm ceramic head Implant Type Status Implanted on Explanted on Expires on Delete SHELL ACET HIP 60MM POR CTD MULTI HOLE TI PINNACLE GRIPTION ([id number]) (AUTOREQ) - [id number] IMPLANTS Implanted 10/10/2020 07/01/2030 LINER ACET HIP [id number] STND POLY PINNACLE ALTRX ([id number]) (AUTOREQ) - [id number] IMPLANTS Implanted10/10/2020 08/31/2025 HEAD FEMORAL HIP 36MM +1.5MM OFFSET 11/13 TAPER CERAMIC ([id number]) (AutoReq) - [id number] IMPLANTS Implanted 10/10/2020 07/01/2025 STEM FEMORAL HIP SZ 7 PROX 02/14 TAPER POR CLLR HIGH OFST TI ([id number]) (AutoReq) - [id number] IMPLANTS Implanted 10/10/2020 08/31/2030 PATIENT HISTORY: The [...] and found to be appropriate with good zoroastrian of leg length and offset. A intraoperative x ray was taken and confirmed appropriate sizing and positioning of implants along with proper zoroastrian of leg length and offset. The hip [...] patient was then awoken, transferred to the [facility] and taken to the PACU [...] hours Other: Total Joint Protocol If the oceanographer assistant surgeon is other than a qualified [...] TH Visit (TeleHealth) Radiation Oncology at [address] [phone] Ping Moore PA [facility] DR HEMATOLOGY [place] [address] 03/26/2024 9:30 AM EST Office Visit Hematology/Oncology at [address] [phone] [address] HEMATOLOGY AND ONCOLOGY [place], [place] [phone] 03/26/2024 9:30 AM EST Infusion Hematology Oncology at [address] [phone] 04/09/2024 9:30 AM EST Office Visit Hematology/Oncology at [address] [phone] Cl Hess MD [facility] [place] [address] [address] HEMATOLOGY AND ONCOLOGY [place], [place] [phone] 04/09/2024 10:00 AM EST Infusion Hematology Oncology at [address] [phone] 04/23/2024 9:30 AM EST Office Visit Hematology/Oncology at [address] [phone] Cl Hess MD [facility] [place] [address] Yessi Renee APRN [address] [place] [address] DR HEMATOLOGY AND ONCOLOGY [place], [place] [address] 04/23/2024 10:00 AM EST Infusion Hematology Oncology at [address] [phone] 05/18/2024 4:30 PM EDT TH Visit (TeleHealth) [place] [address] Malachi Rothman MD [facility] [place] [address] documented as of this encounter Procedures Procedure [...] left hip Arthroplasty Acetabular/Prox Fem Prostc Agrft/Algrft (82672) 10/10/2020 4:43 PM EDT Primary osteoarthritis of left hip POCT GLUCOSE Routine 10/10/2020 3:20 PM EDT TOTAL HIP ARTHROPLASTY - POSTERIOR Routine 10/10/2020 2:13 PM EDT Primary osteoarthritis of left hip IMPLANTABLE DEVICES SCAN 10/10/2020 12:00 AM EDT documented in this encounter Results * POCT Glucose (10/12/2020 12:10 PM EDT) Glucose, POC 129 65 - 199 mg/dL [facility] Comment: Supplemental ranges: <140 mg/dL before meals <180 mg/dL all other times of the day Blood 10/12/2020 12:1 0 PM EDT 10/12/2020 12:10 PM EDT Ismael Wu MD POINT OF CARE TEST ORDERABLES [facility] [place] [address] * POCT Glucose (10/12/2020 7:57 AM EDT) Glucose, POC 147 65 - 199 mg/dL [facility] Comment: Supplemental ranges: <140 mg/dL before meals <180 mg/dL all other times of the day Blood 10/12/2020 7:57 AM EDT 10/12/2020 7:57 AM EDT Ismael Wu MD POINT OF CARE TEST ORDERABLES [facility] [place] [address] * POCT Glucose (10/12/2020 3:22 AM EDT) Glucose, POC 154 65 - 199 mg/dL [facility] Comment: Supplemental ranges: <140 mg/dL before meals <180 mg/dL all other times of the day Blood 10/12/2020 3:22 AM EDT 10/12/2020 3:22 AM EDT Ismael Wu MD POINT OF CARE TEST ORDERABLES [facility] [place] [address] * POCT Glucose (10/11/2020 11:14 PM EDT) Glucose, POC 180 65 - 199 mg/dL [facility] Comment: Supplemental ranges: <140 mg/dL before meals <180 mg/dL all other times of the day Blood 10/11/2020 11:1 4 PM EDT 10/11/2020 11:14 PM EDT Ismael Wu MD POINT OF CARE TEST ORDERABLES [facility] [place] [address] * (ABNORMAL) POCT Glucose (10/11/2020 7:53 PM EDT) Glucose, POC 208(H) 65 - 199 mg/dL [facility] Comment: Supplemental ranges: <140 mg/dL before meals <180 mg/dL all other times of the day Blood 10/11/2020 7:53 PM EDT 10/11/2020 7:53 PM EDT Ismael Wu MD POINT OF CARE TEST ORDERABLES Performing Organization Address City/[facility]/ZIP Co de Phone Number [facility] [place] [address] * POCT Glucose (10/11/2020 4:34 PM EDT) Glucose, POC 153 65 - 199 mg/dL [facility] Comment: Supplemental ranges: <140 mg/dL before meals <180 mg/dL all other times of the day Blood 10/11/2020 4:34 PM EDT 10/11/2020 4:34 PM EDT Ismael Wu MD POINT OF CARE TEST ORDERABLES [facility] [place] [address] * (ABNORMAL) POCT Glucose (10/11/2020 11:47 AM EDT) Pathologist [facility] Glucose, POC 226(H) 65 - 199 mg/dL [facility] Comment: Supplemental ranges: <140 mg/dL before meals <180 mg/dL all other times of the day Blood 10/11/2020 11:4 7 AM EDT 10/11/2020 11:47 AM EDT Ismael Wu MD POINT OF CARE TEST ORDERABLES Performing Organization Address City/State/[facility] Co de Phone Number [facility] [place] [address] * (ABNORMAL) Differential, Automated (10/11/2020 10:43 AM EDT) [facility] Neutrophil % 84.5 % [facility] Neutrophil Absolute 11.42(H) 1.70 - 6.10 x10(3)/ L [facility] Lymph % 7.8 % [facility] Lymphocytes Abs 1.1 0.9 - 3.2 x10(3)/ L [facility] Monocyte % 7.2 % [facility] Monocyte Abs 1.0(H) 0.3 - 0.9 x10(3)/ L [facility] Eos % 0.0 % [facility] Eosinophils Abs 0.0 0.0 - 0.4 x10(3)/ L [facility] Basophil % 0.1 % [facility] Baso Absolute 0.0 0.0 - 0.1 x10(3)/mc L [facility] Immature Gran % 0.40 % [facility] Comment: Immature granulocytes(IG's)percentage and absolute count will include metamyelocytes, myelocytes, and promyelocytes. Blood smears from CBCs yielding IG's will be scanned manually for concordance. If this scan disagrees with the automated IG or if promyelocytes are noted, a manual differential will be performed. Immature Gran Absolute 0.06(H) 0.00 - 0.04 x10(3)/[facility] Blood 10/11/2020 10:4 3 AM EDT 10/11/2020 11:09 AM EDT Narrative Resulting Agency Comment Spec In Lab Liz Grimes APRN HEMATOLOGY ORDERABL ES [facility] [place] [address] * (ABNORMAL) Hemogram (10/11/2020 10:43 AM EDT) White Blood Cell 13.5(H) 4.0 - 9.5 x10(3)/[facility] Red Blood Cell 3.87(L) 4.58 - 5.54 x10(6)/[facility] Hemoglobin 12.4(L) 13.7 - 16.5 gm/dL [facility] Hematocrit 36.7(L) 40.5 - 48.5 % [facility] Mean Cell Volume 94.8(H) 82.9 - 93.1 fL [facility] Mean Cell Hemoglobin 32.0 27.5 - 32.1 pg [facility] Mean Cell Hemoglobin Concentration 33.8 32.0 - 35.7 gm/dL [facility] Platelet 187 145 - 357 x10(3)/[facility] RDW Standard Deviation 44.4 36.0 - 45.0 [facility] RDW coefficient of variation 13.0 11.4 - 13.8 % [facility] Mean Platelet Volume 10.3 7.6 - 12.9 [facility] NRBC% auto 0.0 % [facility] NRBC Absolute 0.000 0.000 - 0.000 x10(3)/[facility] Blood 10/11/2020 10:4 3 AM EDT 10/11/2020 11:09 AM EDT Narrative Resulting Agency Comment Spec In Lab Liz Grimes MECHANIC FIELD SERVICE HEMATOLOGY ORDERABL ES [facility] [place] [address] * (ABNORMAL) Basic Metabolic Panel (non-fasting) (10/11/2020 10:43 AM EDT) Glucose 231(H) 65 - 199 mg/dL [facility] Comment:Diabetes: >=200 mg/d L plus symptoms Blood Urea Nitrogen 18 10 - 20 mg/dL [facility] Creatinine 1.10 0.80 - 1.50 mg/dL [facility] Sodium 135 135 - 145 mmol/L [facility] Potassium 4.4 3.5 - 5.0 mmol/L [facility] Comment: Please note: ??Patients with WBC >100,000 may have falsely elevated Potassium levels. ??For accurate Potassium quantification in these patients send serum separator tube (gold top) for subsequent determinations. ??Contact the Clinical Chemistry Laboratory if there are any questions. Chloride 100 98 - 107 mmol/L [facility] Carbon Dioxide 25 22 - 31 mmol/L [facility] Anion Gap 10 5 - 15 mmol/L [facility] Calcium 8.6 8.5 - 10.5 mg/dL [facility] Est Glomerular Filtration Rate 67 >=60 mL/min/1. 73 m?? [facility] Comment: This patient? s estimated [...] APRN CHEMISTRY ORDERABLE S Performing Organization Address [facility] Co de Phone Number [facility] [place] [address] * (ABNORMAL) POCT Glucose (10/11/2020 7:36 AM EDT) Glucose, POC 254(H) 65 - 199 mg/dL [facility] Comment: Supplemental ranges: <140 mg/dL before meals <180 mg/dL all other times of the day Blood 10/11/2020 7:36 AM EDT 10/11/2020 7:36 AM EDT Ismael Wu MD POINT OF CARE TEST ORDERABLES Performing Organization Address [facility] Center/[facility] Co de Phone Number [facility] [place] [address] * POCT Glucose (10/11/2020 3:36 AM EDT) Glucose, POC 199 65 - 199 mg/dL [facility] Comment: Supplemental ranges: <140 mg/dL before meals <180 mg/dL all other times of the day Blood 10/11/2020 3:36 AM EDT 10/11/2020 3:36 AM EDT Ismael Wu MD POINT OF CARE TEST ORDERABLES Performing Organization Address [facility] Co de Phone Number [facility] [place] [address] * POCT Glucose (10/11/2020 12:02 AM EDT) Glucose, POC 189 65 - 199 mg/dL [facility] Comment: Supplemental ranges: <140 mg/dL before meals <180 mg/dL all other times of the day Blood 10/11/2020 12:0 2 AM EDT 10/11/2020 12:02 AM EDT Ismael Wu MD POINT OF CARE TEST ORDERABLES [facility] [place] [address] * XR Pelvis (Generic) (10/10/2020 9:46 PM [...] questions please contact the health skin care technician that requested your imaging first. ? Electronically signed by: Claudio Ward MD, [facility] ([phone]), at 10/11/2020 8:33 AM Narrative 10/11/2020 8:33 [...] have questions please contactthe health skin care technician that requested your imaging first. Ismael Wu MD IMG DX ORDERABLES * POCT Glucose (10/10/2020 9:19 PM EDT) [facility] Glucose, POC 149 65 - 199 mg/dL [facility] Comment: Supplemental ranges: <140 mg/dL before meals <180 mg/dL all other times of the day Blood 10/10/2020 9:19 PM EDT 10/10/2020 9:19 PM EDT Ismael Wu MD POINT OF CARE TEST ORDERABLES Performing Organization Address City/State/[facility] Co de Phone Number [facility] [place] [address] * XR Hip 1 view Left (10/10/2020 [...] questions please contact the health skin care technician that requested your imaging first. ? Narrative [...] have questions please contactthe health skin care technician that requested your imaging first. Ismael Wu [...] questions please contact the health skin care technician that requested your imaging first. ? Electronically signed by: Claudio Ward MD, [facility] ([phone]), at 10/11/2020 8:30 AM Narrative 10/11/2020 8:30 [...] have questions please contactthe health skin care technician that requested your imaging first. Ismael Wu [...] questions please contact the health skin care technician that requested your imaging first. ? Electronically signed by: Claudio Ward MD, [facility] ([phone]), at 10/11/2020 8:29 AM Narrative 10/11/2020 8:29 [...] have questions please contactthe health skin care technician that requested your imaging first. Ismael Wu MD IMG DX ORDERABLES * POCT Glucose (10/10/2020 3:20 PM EDT) Glucose, POC 119 65 - 199 mg/dL [facility] Comment: Supplemental ranges: <140 mg/dL before meals <180 mg/dL all other times of the day Blood 10/10/2020 3:20 PM EDT 10/10/2020 3:20 PM EDT Ismael Wu MD POINT OF CARE TEST ORDERABLES [facility] [place] [address] * SCAN DOC: IMPLANTABLE DEVICES (10/10/2020 12:00 [...] (Intra-Procedure), Indication for (Active or Suspected): Prophylaxis 173 (Given - Provider: Vidal Watson MD) ceFAZolin [...] Prophylaxis 2208 (New Bag - Provider: Judith Huerta, AYE)2238 (Stopped - Provider: Junaid Diallo, YAE) 0608 (New Bag - Provider: Qian Santiago RN)0638 (Stopped - Provider: Savanah Guadalupe, AYE)1312 (New Bag - Provider: Savanah Guadalupe RN)1342 (Stopped - Provider: Savanah Guadalupe RN) celecoxib (CeleBREX) capsule 200 mg 200 [...] 0828 (Given - Provider: Savanah Guadalupe RN) [id number] ketamine 10 mg/mL or placebo injection 57 [...] - Provider: Junaid Diallo RN - Comment: [phone] (Given - Provider: Qian Santiago RN)0858 (Given - Provider: Linsey Zavala LPN)1154 (Given - Provider: Savanah Guadalupe RN) insulin lispro (HumaLOG;Admelog) (100 unit/mL) subcutaneous [...] units given)1636 (Given - Provider: Linsey Zavala LPN)2008 (Given - Provider: Boone Gonzalez RN)2319 (Given [...] 0830 (Given - Provider: Savanah Guadalupe, AYE) polyethylene glycoL (Miralax) packet 17 g 17 g, Oral, 2 TIMES DAILY, First dose on Sat10/11/20 at 0900, Until Discontinued, Routine 09 (Not Given - Provider: Linsey Zavala LPN - Reason: Patient/family refused)2007 (Given - Provider: Boone Gonzalez RN) 826 (Given - Provider: Savanah Guadalupe RN) senna-docusate (Pericolace) 8.6-50 mg per tablet 2 tablet 2 tablet, Oral, 2 TIMES DAILY, First dose on Sat10/11/20 at 0900, Until Discontinued, Routine 0900 (Not Given - Provider: Linsey Zavala LPN - Reason: Patient/family refused)2006 (Given - Provider: Boone Gonzalez RN) 828 (Given - Provider: Savanah Guadalupe RN) sodium [...] 1245 1203 (New Bag - Provider: Savanah Guadalupe, AYE)1303 (Stopped - Provider: Savanah Guadalupe RN) tamsulosin (Flomax) capsule 0.4 mg 0.4 mg, Oral, DAILY, First dose on Sat10/11/20 at 1200, Until Discontinued, DO NOT CRUSH OR OPEN, Routine 1154 (Given - Provider: Savanah Guadalupe RN) 08 (Given - Provider: Savanah Guadalupe RN) Continuous Medication Order 10/10/2020 10/11/2020 10/12/2020 [id number] ketamine or placebo 250 mg in sodium chloride 0.9% 250 mL infusion (CANCELED)(Linked Group 4) 5 mcg/kg/min ? 114.8 kg (34.44 mL/hr, rounded to 34.4 mL/hr), Intravenous, CONTINUOUS, Starting on Sat10/10/20 at 0700, Until Sat10/12/20 at 0611, 0.5 mg/kg bolus followed by a 5 mcg/kg/min continuous infusion. total dose (bolus plus continuous infusion) should not exceed 500 mg 1741 (New Bag - Provider: Vidal Watson MD)2024 (Stopped - Provider: Delmi Garcia CRNA) sodium chloride 0.9% infusion 1,000 mL, at 100 mL/hr, Intravenous, CONTINUOUS, Starting on Sat10/10/20 at 2200, Until Sat10/12/20 at 1518, Recovery (Recovery-Hospital Unit) 2133 (New Bag - Provider: Chen Arrieta, AYE) 1002 (Stopped - Provider: Savanah Guadalupe, AYE - Comment: Pt IV symptomatic)1813 (New Bag - Provider: Savanah Guadalupe, AYE) [...] Intra-Operative (Intra-Procedure), Routine 2048 (Given - Provider: Isamel Wu MD) lidocaine (Xylocaine) 1% (10 mg/mL) [...] minutes ONCE if pain not relieved., Routine 0828 (Given - Provid er: Savanah Guadalupe RN) [...] Unit), Routine Linked Groups Order Group 1: [id number] ketamine 10 mg/mL or placebo injection 57 [...] by Dr. Rodrick Chisholm. Acknowledged And INV [id number] patient's specific med #2 1 each () [...] mg/dL in 2 hours., Routine Group 4: [id number] ketamine or placebo 250 mg in sodium chloride 0.9% 250 mL infusion (CANCELED)Jump to med 5 mcg/kg/min ? 114.8 kg (34.44 mL/hr, rounded to 34.4 mL/hr), Intravenous, CONTINUOUS, Starting on Sat10/10/20 at 0700, Until Sat10/12/20 at 0611, 0.5 mg/kg bolus followed by a 5 mcg/kg/min continuous infusion. total dose (bolus plus continuous infusion) should not exceed 500 mg And INV [id number] patient's specific infusion med #2 1 each [...] Unit) documented in this encounter Care Teams Production Line Welder Relationship Specialty Start Date End Date Alo Carey DO [address] [place] [address] [place] [phone] PCP - General Internal Medicine 08/31/20 07/03/23 documented as of this encounter
--- OUTSIDE RECORDS SUMMARY | 2024-03-12 11:01 | XMS_ITS ---
[place] [address] Care Team Providers Care Project Manager Entertainment And Media Name Role Phone Tristen Hunter MD Primary Care Provider [phone] Enzyme Status:Enrolled (Active) Start date:07/24/2023 Enrollment date:07/24/2023 Enrollment reason:Enrolled - Currently Fills with Specialty Current support & services provided:Clinical Management, Refill Management Linked medications:lipase/protease/amylase (Active) Linked problems:Malignant neoplasm of head of pancreas (Active) Continued Care and Services Coordination
--- OUTSIDE RECORDS SUMMARY | 2024-03-12 11:01 | XMS_ITS | Encounter Summary ---
[place] [address] Care Team Providers Care Framework Developer Name Role Phone YungAlo santiago Primary Care Provider [phone] Encounter Details Date Type Department Care Team (Latest Contact Info) Description 10/06/2020 2:00 PM EDT Laboratory [place] [address] Primary osteoarthritis of left hip; Left leg [...] TH Visit (TeleHealth) Radiation Oncology at [address] [phone] Ping Moore PA [facility] DR HEMATOLOGY [place] [address] 03/26/2024 9:30 AM EST Office Visit Hematology/Oncology at [address] [phone] [address] HEMATOLOGY AND ONCOLOGY [place], [place] [phone] 03/26/2024 9:30 AM EST Infusion Hematology Oncology at [address] [phone] 04/09/2024 9:30 AM EST Office Visit Hematology/Oncology at [address] [phone] Cl Hess MD [facility] [place] [address] [address] HEMATOLOGY AND ONCOLOGY [place], [place] [phone] 04/09/2024 10:00 AM EST Infusion Hematology Oncology at [address] [phone] 04/23/2024 9:30 AM EST Office Visit Hematology/Oncology at [address] [phone] Cl Hess MD [facility] [place] [address] [address] HEMATOLOGY AND ONCOLOGY [place], [place] [address] 04/23/2024 10:00 AM EST Infusion Hematology Oncology at [address] [phone] 05/18/2024 4:30 PM EDT TH Visit (TeleHealth) [place] [address] Malachi Rothman MD [facility] [place] [address] documented as of this encounter Procedures Procedure [...] and Screen Validity (10/06/2020 2:59 PM EDT) Pathologist [facility] T&S only valid at [facility] LABORATORY Comment:This Type and Screen result is only valid at the [facility] Blood 10/06/2020 2:59 PM EDT 10/06/2020 3:07 PM EDT Narrative Resulting Agency Comment Spec In Lab Ismael Wu MD BLOOD BANK LAB SAUD CHENG Performing Organization Address City/[facility]/ZIP Co de Phone Number [facility] [place] [address] * ABORH Recheck Status (10/06/2020 2:59 PM EDT) [facility] ABORH Recheck Order Order Placed [facility] ABORH Type Recheck Complete [facility] Blood 10/06/2020 2:59 PM EDT 10/06/2020 3:07 PM EDT Narrative Resulting Agency Comment Spec In Lab Ismael Wu MD BLOOD BANK LAB SAUD BELTRANEZEKIEL Performing Organization Address [facility]/ZIP Co de Phone Number [facility] [place] [address] * Antibody screen (10/06/2020 2:59 PM EDT) [facility] Ab Screen Interp Negative [facility] Expires at 2359 on: 10/13/2020 [facility] Blood 10/06/2020 2:59 PM EDT 10/06/2020 3:07 PM EDT Narrative Resulting Agency Comment Spec In Lab Ismael Wu MD BLOOD BANK LAB ORDShante CHENG Performing Organization Address City/[facility]/ZIP Co de Phone Number [facility] [place] [address] * Differential, Automated (10/06/2020 2:59 PM EDT) Pathologist [facility] Neutrophil % 59.3 % [facility] Neutrophil Absolute 3.64 1.70 - 6.10 x10(3)/[facility] LABORATORY Lymph % 28.3 % [facility] Lymphocytes Abs 1.7 0.9 - 3.2 x10(3)/[facility] LABORATORY Monocyte % 9.0 % [facility] LABOR[facility] Monocyte Abs 0.6 0.3 - 0.9 x10(3)/[facility] LABORATORY Eos % 2.6 % [facility] Eosinophils Abs 0.2 0.0 - 0.4 x10(3)/[facility] LABORATORY Basophil % 0.5 % [facility] Baso Absolute 0.0 0.0 - 0.1 x10(3)/[facility] LABORATORY Immature Gran % 0.30 % [facility] Comment: Immature granulocytes(IG's)percentage and absolute count will include metamyelocytes, myelocytes, and promyelocytes. Blood smears from CBCs yielding IG's will be scanned manually for concordance. If this scan disagrees with the automated IG or if promyelocytes are noted, a manual differential will be performed. Immature Gran Absolute 0.02 0.00 - 0.04 x10(3)/[facility] LABORATORY Blood 10/06/2020 2:59 PM EDT 10/06/2020 3:08 PM EDT Narrative Resulting Agency Comment Spec In Lab Ismael Wu MD HEMATOLOGY ORDERABL ES Performing Organization Address City/[facility]/ZIP Co de Phone Number [facility] [place] [address] * ABO/Rh Typing (10/06/2020 2:59 PM EDT) ABORH Type O Pos [facility] Blood 10/06/2020 2:59 PM EDT 10/06/2020 3:07 PM EDT Narrative Resulting Agency Comment Spec In Lab Ismael Wu MD BLOOD BANK LAB ORDE RABLES [facility] [place] [address] * (ABNORMAL) Hemogram (10/06/2020 2:59 PM EDT) [facility] White Blood Cell 6.1 4.0 - 9.5 x10(3)/ L [facility] Red Blood Cell 4.60 4.58 - 5.54 x10(6)/[facility] LABORATORY Hemoglobin 14.7 13.7 - 16.5 gm/dL [facility] Hematocrit 43.3 40.5 - 48.5 % [facility] Mean Cell Volume 94.1(H) 82.9 - 93.1 fL [facility] Mean Cell Hemoglobin 32.0 27.5 - 32.1 pg [facility] Mean Cell Hemoglobin Concentration 33.9 32.0 - 35.7 gm/dL [facility] Platelet 190 145 - 357 x10(3)/ L [facility] RDW Standard Deviation 45.3(H) 36.0 - 45.0 fL [facility] RDW coefficient of variation 13.2 11.4 - 13.8 % [facility] Mean Platelet Volume 10.2 7.6 - 12.9 fL [facility] NRBC% auto 0.0 % [facility] NRBC Absolute 0.000 0.000 - 0.000 x10(3)/ L [facility] Blood 10/06/2020 2:59 PM EDT 10/06/2020 3:08 PM EDT Narrative Resulting Agency Comment Spec In Lab Ismael Wu MD HEMATOLOGY ORDERABL ES Performing Organization Address City/[facility]/ZIP Co de Phone Number [facility] [place] [address] * Basic Metabolic Panel (non-fasting) (10/06/2020 2:59 PM EDT) [facility] Glucose 195 65 - 199 mg/dL [facility] Comment:Diabetes: >=200 mg/d L plus symptoms Blood Urea Nitrogen 13 10 - 20 mg/dL [facility] Creatinine 0.98 0.80 - 1.50 mg/dL [facility] Sodium 141 135 - 145 mmol/L [facility] Potassium 4.3 3.5 - 5.0 mmol/L [facility] Comment: Please note: ??Patients with WBC >100,000 may have falsely elevated Potassium levels. ??For accurate Potassium quantification in these patients send serum separator tube (gold top) for subsequent determinations. ??Contact the Clinical Chemistry Laboratory if there are any questions. Chloride 103 98 - 107 mmol/L [facility] Carbon Dioxide 23 22 - 31 mmol/L [facility] Anion Gap 15 5 - 15 mmol/L [facility] Calcium 9.8 8.5 - 10.5 mg/dL [facility] Est Glomerular Filtration Rate 77 >=60 mL/min/1. 73 m?? [facility] [...] Ismael Wu MD CHEMISTRY ORDERABLE S [facility] [place] [address] * Prothrombin Time (10/06/2020 2:59 PM EDT) Prothrombin Time 11.1 9.4 - 12.5 sec [facility] [...] MD HEMATOLOGY ORDERABL ES Performing Organization Address [facility] Co de Phone Number [facility] [place] [address] * APTT (10/06/2020 2:59 PM EDT) Partial Thromboplastin Time 32 25 - 37 sec [facility] [...] MD HEMATOLOGY ORDERABL ES Performing Organization Address City/[facility] Co de Phone Number [facility] [place] [address] documented in this encounter Visit Diagnoses Diagnosis Primary osteoarthritis of left hip Primary localized osteoarthrosis, pelvic region and thigh Left leg pain Pain in limb documented in this encounter Care Teams Framework Developer Relationship Specialty Start Date End Date Alo Carey DO [address] [place] [address] [place] [phone] PCP - General Internal Medicine 08/31/20 07/03/23 documented as of this encounter
--- OUTSIDE RECORDS SUMMARY | 2024-03-12 11:01 | XMS_ITS | Encounter Summary ---
[place] [address] Care Team Providers Care Inventory Control Assistant Name Role Phone Alo Carey Primary Care Provider [phone] Encounter Details Date Type Department Care Team (Late st Contact Info) Description 09/20/2020 [place] [address] Jennifer Lantigua RN Social History Tobacco Use [...] the above instruction given. Jennifer Lantigua RN [facility] Orth[facility] * Telephone Encounter - Jennifer [...] Thought you should know. Jennifer Lantigua RN [facility] Ortho [facility] ----- Message ----- From: Brenda Potts Sent: 09/20/2020 11:47 AM EDT To: [facility] Orthopaedics Nurse Subject: 10/10/2020 [place] LEFT JIMI , PLAVIX AND 81MG documented in this encounter Plan of Treatment Upcoming Encounters Date Type Department Care Team (Late st Contact Info) Description 03/24/2024 9:00 AM EST TH Visit (TeleHealth) Radiation Oncology at [address] [phone] Ping Moore PA [facility] DR HEMATOLOGY [place] [address] 03/26/2024 9:30 AM EST Office Visit Hematology/Oncology at [address] [phone] Yessi Renee APRN [address] [place] [address] 03/26/2024 9:30 AM EST Infusion Hematology Oncology at [address] [phone] 04/09/2024 9:30 AM EST Office Visit Hematology/Oncology at [address] [phone] Cl Hess MD [facility] [place] [address] HEMATOLOGY AND ONCOLOGY [place], [place] [address] 04/09/2024 10:00 AM EST Infusion Hematology Oncology at [address] [phone] 04/23/2024 9:30 AM EST Office Visit Hematology/Oncology at [address] [phone] Cl Hess MD [facility] [place] [address] HEMATOLOGY AND ONCOLOGY [place], [place] [address] 04/23/2024 10:00 AM EST Infusion Hematology Oncology at [address] [phone] 05/18/2024 4:30 PM EDT TH Visit (TeleHealth) [place] [address] Malachi Rothman MD [facility] [place] [address] documented as of this encounter Visit Diagnoses Not on filedocumented in this encounter Care Teams Inventory Control Assistant Relationship Specialty Start Date End Date Alo Carey DO [address] [place] [address] [place] [phone] PCP - General Internal Medicine 08/31/20 07/03/23 documented as of this encounter
--- OUTSIDE RECORDS SUMMARY | 2024-03-12 11:02 | XMS_ITS | Encounter Summary ---
Author Organization [facility] Address [address] [place] [address] Care Team Providers Care Speed Reading Teacher Name Role Phone Unknown, Provider Primary Care Provider Tristen Lagos MD Primary Care Provider [phone] Encounter Details Date Type Department Care Team (Late st Contact Info) Description 11/06/2022 Lab Requisition [facility] Pathology & Laboratory Medicine [address] [address] Filiberto Griffin MD [address] [place] [phone] Encounter for other general examination Social History [...] Info) Description 03/30/2024 9:15 EST Office Visit [facility] Ophthalmology - [address] [phone] Uday Reece MD [address] [place] [address], [facility] [address] [place] [phone] 04/15/2024 12:30 EST Office Visit [facility] Ophthalmology - [address] [place], [place] [phone] Barby Guzman MD [address] [facility], [address] [place] [address] documented as of this encounter Procedures Procedure [...] explore management options, if applicable. 11/08/2022 10:43 [facility] Final Diagnosis A. COLON, RANDOM BIOPSIES: - Focal reactive changes. - No features of microscopic colitis present. - Negative for dysplasia and malignancy. 11/08/2022 10:43 [facility] Attestation By the signature below, the attending physician certifies that they have 1) personally conducted a gross and/or microscopic examination of the described specimen(s), and/or personally interpreted the results of laboratory testing of the described specimen(s), and 2) personally rendered or confirmed the above diagnosis. 11/08/2022 10:43 [facility] at 1043 Clinical History Diarrhea, hx colon cancer, colon polyp 11/08/2022 10:43 [facility] Gross Description A. Received in formalin labelled with proper patient identification (initials H, P) and A. Random biopsies are 7 bowden and bowden focally brown tissues (0.5 x 0.4 x 0.1 cm to 0.2 x 0.2 x 0.1 cm). Entirely submitted in A1-A2. Aliyah Rachel 11/07/2022 9:33 11/08/2022 10:43 EDT [facility] Performing Lab [facility] 11/08/2022 10:43 EDT [facility] Scanned Images 11/08/2022 10:43 EDT [facility] Tissue COLON STRUCTURE / Unknown 11/06/2022 9:28 EDT 11/07/2022 8:42 EDT us Filiberto Griffin MD PATHOLOGY ORDERABLES Final Res ult [facility] [address] [place] [address] documented in this encounter Visit Diagnoses Diagnosis Encounter for other general examination documented in this encounter Care Teams Speed Reading Teacher Relationship Specialty Start Date End Date Unknown, Provider, PCP - General 03/04/20 12/02/23 Tristen Hunter MD [address] [place] [address] PCP - General Family Medicine - Primary Care 12/03/23 documented as of this encounter
--- OUTSIDE RECORDS SUMMARY | 2024-03-12 11:02 | XMS_ITS | Encounter Summary ---
Author Organization [facility] Address [address] [place] [address] Care Team Providers Care Manufacturing Assistant Name Role Phone Unknown, Provider Primary Care Provider Tristen Lagos MD Primary Care Provider [phone] Encounter Details Date Type Department Care Team (Late st Contact Info) Description 09/25/2022 Lab Requisition [facility] Pathology & Laboratory Medicine - [address] [address] Outr Resulting Lab, Provider Social History Tobacco [...] Info) Description 03/30/2024 9:15 EST Office Visit [facility] Ophthalmology [address] [address] Uday Reece MD [address] [place] [address], [address] [place] [phone] 04/15/2024 12:30 EST Office Visit [facility] Ophthalmology [address] [place] [address] Barby Guzman MD [address] [facility], [address] [place] [phone] documented as of this encounter Procedures Procedure Name Priority Date/Time Associated Diagnosis Comments FECAL BACTERIAL PATHOGENS BY PCR Routine 09/25/2022 10:28 EDT documented in this encounter Results * FECAL BACTERIAL PATHOGENS BY PCR (09/25/2022 10:28 EDT) Salmonella PCR Negative Negative 09/26/2022 10:[address] [facility] Shigella/Enteroin vasive E. coli Negative Negative 09/26/2022 10:[address] [facility] HN LAB CAMPYLOBACTER PCR Negative Negative 09/26/2022 10:[address] [facility] Shiga Toxin PCR Negative Negative 10:[address] [facility] Feces SPECIMEN FROM RECTUM / Unknown 09/25/2022 10:28 EDT 09/25/2022 22:21 EDT us Provider Outr Resulting Lab MICROBIOLOGY - GENER AL ORDERABLES Final Result [facility] [address] [place] [address] documented in this encounter Visit Diagnoses Not on filedocumented in this encounter Care Teams Manufacturing Assistant Relationship Specialty Start Date End Date Unknown, Provider, PCP - General 03/04/20 12/02/23 Tristen Hunter MD [address] [place] [address] [place] [address] PCP - General Family Medicine - Primary Care 12/03/23 documented as of this encounter
--- OUTSIDE RECORDS SUMMARY | 2024-03-12 11:02 | XMS_ITS | Encounter Summary ---
Author Organization [facility] Address [address] [place] [address] Care Team Providers Care Quiller Machine Fixer Name Role Phone Unknown, Provider Primary Care Provider Unava ilable Reason for Visit * Reason Onset Date Comments Eye Problem 10/24/2023 Encounter Details Date Type Department Care Team (Late st Contact Info) Description 10/24/2023 Telephone [facility] Ophthalmology - Main [place] [address] [place], [place] [phone] Wero Avilez MD [address] [place] [address], [facility] [address] [place] [address] Eye Problem Social History Tobacco Use Types Packs/Day Years Used Date Smoking Tobacco: Never Assessed Sex and Gender Information Value Date Recorded Sex Assigned at Not on file Legal Sex Male 9:11 EDT Gender Identity Male 01/24/2021 12:25 EST Sexual Orientation Not on file documented as of this encounter Miscellaneous Notes * Telephone Encounter - Kita Crowe - 10/24/2023 0952 EDT Incoming Referral - patient has been seen by Dr. Avilez in the past. Please review referral and advise re: scheduling. documented in this encounter Plan of Treatment Upcoming Encounters Date Type Department Care Team (Late st Contact Info) Description 03/30/2024 9:15 EST Office Visit [facility] Ophthalmology [address] [address] Uday Reece MD [address] [place] [phone] 04/15/2024 12:30 EST Office Visit [address] [phone] Barby Guzman MD [address] [place] [phone] documented as of this encounter Visit Diagnoses Not on filedocumented in this encounter Care Teams Quiller Machine Fixer Relationship Specialty Start Date End Date Unknown, Provider, PCP - General 03/04/20 12/02/23 documented as of this encounter
--- OUTSIDE RECORDS SUMMARY | 2024-03-12 11:02 | XMS_ITS | Encounter Summary ---
Author Organization [facility] Address [address] [place] [address] Care Team Providers Care Instrument Designer Name Role Phone Tristen Hunter MD Primary Care Provider [phone] Reason for Referral * Radiology Services (Routine/Next Available) - Authorization Not Required Specialty Diagnoses / Procedures Referred By Contac t Referred To Contact Radiology Diagnoses Vision loss of right eye Optic atrophy Procedures MR ORBIT W WO CONTRAST Wero Avilez MD Phone: tel: fax: [facility] Referral ID Status Reason Start Date Expiration Date Visits Requested Visits Authorized [id number] Authorization Not Required 12/03/2023 1 1 Reason for Visit * Reason Comments Eye Exam * Consult, Test and Treat (Routine) - Receiving Office to Obtain Authorization Specialty Diagnoses / Procedures Referred By Marques livingston Referred To Contact Diagnoses Unspecified visual loss Tristen Hunter MD [address] [place] [address] Phone: tel: fax: [facility] Ophthalmology - Main [place] [address] [place] [address] Phone: tel: fax: Referral ID Status Reason Start Date Expiration Date Visits Requested Visits Authorized [id number] Receiving Office to Obtain Authorization 1 1 Encounter Details Date Type Department Care Team (Late st Contact Info) Description 12/03/2023 8:00 EDT Office Visit [facility] Ophthalmology - Main [address] [address] Wero Avilez MD 1 [facility], Level 2 [place] [address] Social History Tobacco Use Types Packs/Day Years Used Date Smoking Tobacco: Never Assessed Sex and Gender Information Value Date Recorded Sex Assigned at Not on file Legal Sex Male 9:11 EDT Gender Identity Male 01/24/2021 12:25 EST Sexual Orientation Not on file documented as of this encounter Progress Notes * Wero Avilez MD - 12/03/2023 0800 EDT DIVISION OF OPHTHALMOLOGY [facility] NEURO-OPHTHALMOLOGY FOLLOW-UP 12/03/2023 Mr. Sadler returned for follow-up neuro-ophthalmological examination because of the history of unexplained vision loss. To recall, this a 73-year-old man who suffered vision loss in his right eye in November 2019. The patient was living in [place] at the time. He reported that he [...] of specialty eye care providers including a neuro-glaze sprayer. By history it sounds as though the patient was either diagnosed with nonarteritic anterior ischemicoptic neuropathy or retinal occlusion. The patient was maintained on dual antiplatelet therapy. At the time of onset, the patient denied pain. 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 At the time of his initial evaluation with me in February 2021 there was profound vision loss in the right eye with best corrected acuity of only 20/400 in the pale optic nerve. 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 His MRI was reviewed with no other abnormality to account for his vision loss. He was noting that occasionally the vision seems better transiently when entering a room and as such I question whether or not this might be somehow pressure related or perfusion related. The patient was reexamined by me in November 2021 at which point he reported progressive vision loss that had occurred gradually and again was not associated with pain. At that evaluation, the patient's best corrected visual acuity was 20/800. No etiology was identified to account for this and it was recommended the patient have additional evaluation in [place]. In the interval since patient was last evaluated by me, the patient was seen at [facility] at which point again the patient's vision had further deteriorated to 1/200. The opinion was that the absence of inner retinal thinning on optical coherence tomography supported the prior suspicion for an optic neuropathy rather than a retinal artery occlusion as a cause for the patient's vision loss. No clear treatment was identified and it was recommended that the patient have dedicated orbits studies with MRI. The patient's medical history has been complicated by diagnosis ofpancreatic cancer. The patient is receiving ongoing treatment for the same. The neuro-ophthalmic examination found the patient to be communicative and cooperative for testing.Visual acuities without correction were count fingers at 3 feet in the right eye. Color vision (Ishihara) found the patient unable to identify the control plate with the right eye. [...] on the right with no nystagmus. Applanation ton ometry at 0844 hrs. was 15.5 mmHg in the right eye. Slit-lamp examination revealed blepharitis, early breakup of the tear film, and a 2+ nuclear sclerotic cataract with otherwise normal anterior segment on the right. There is mild blepharitis on the left, with a well-placed prosthetic, with some mucus debris. Dilated stereoscopic (indirect) funduscopy found the right optic nerve to be diffusely pale there is vascular attenuation with a small plaques and sheathing along the inferior arcade with adjacent pigmentary changes. Spectral domain OCT nerve fiber layer analysis demonstrated polar thinning at the disc on the right, average nerve fiber thickness of 55 ??m. FORMULATION: This is a 73-year-old man seen for follow-up neuro--evaluation because a history of vision loss in his only sighted eye. There has been further progressive vision loss. The degree of atrophy of the disc is difficult to quantify but does not seem to have significantly progressed. There is what appears to be a small plaque within the vessel along the inferior arcade adding potential additional insight as to the mechanism for the patient's further difficulties. Nonetheless, I have recommended additional serologic studies as well as dedicated orbit imaging. We will determine additional steps based on the results of these and I have encouraged the patient to continue on his aspirin as well as atorvastatin. The patient relates that his vascular surgeon has told him that his carotids although this could be a consequence of more distal occlusions. We will determine additional follow-up pending the results of the studies. I spent a total of 30 minutes on the date of this encounter meeting with the patient and reviewing documentation/coordinating care as described in the above note. Please do not hesitate to contact me with any further questions or concerns. Sincerely, Wero Avilez MD Diplomate, the [place] [employer] technical trainer documented in this encounter Plan of Treatment Upcoming Encounters Date Type Department Care Team (Late st Contact Info) Description 03/30/2024 9:15 EST Office Visit [facility] Ophthalmology [address] [phone] Uday Reece MD [address] [place] [address], [address] [place] [address] 04/15/2024 12:30 EST Office Visit [facility] Ophthalmology [address] [phone] Barby Guzman MD 111 [facility], [address] [place] [address] Pending Results Name Type Priority Associated Diagnoses Date /Time OCT, OPTIC NERVE - OD - RIGHT EYE Ophthalmology Routine Vision loss of right eye Optic atrophy 12/03/2023 9:59 EDT documented as of this encounter Procedures Procedure Name Priority Date/Time Associated Diagnosis Comments OCT, OPTIC NERVE - OD - RIGHT EYE Routine 12/03/2023 9:59 EDT Vision loss of right eye Optic atrophy documented in this encounter Results * MR ORBIT W WO CONTRAST (12/24/2023 15:45 EDT) Anatomical Region Laterality Modality Head Magnetic Resonan ce 12/24/2023 16:4 6 EDT Impressions 12/24/2023 16:46 EDT T2 hyperintensity in the right optic nerve without enhancement which may be new compared to prior although differences in technique make direct comparison challenging, potentially representing the sequela of prior inflammation or injury. [id number] Narrative 12/24/2023 16:46 EDT EXAM: MRI ORBITS [...] EXTRACRANIAL SOFT TISSUES: Unremarkable. Resulting Agency Comment [id number] Procedure Note Keon Reyna MD - 12/24/2023 [...] representing the sequela of priorinflammation or injury. [id number] Wero Avilez MD IMG MRI ORDERABLES Final Result * (ABNORMAL) BASIC METABOLIC PANEL (BMP) (12/03/2023 10:15 EDT) Sodium 140 136 - 145 mmol/L 12/03/2023 11:42 [facility] Potassium 4.0 3.5 - 5.0 mmol/L 12/03/2023 11:42 [facility] Chloride 100 96 - 110 mmol/L 12/03/2023 11:42 [facility] CO2 Total 30 22 - 32 mmol/L 12/03/2023 11:42 [facility] Anion Gap 10 5 - 14 mmol/L 12/03/2023 11:42 [facility] Glucose 86 70 - 99 mg/dl 12/03/2023 11:42 [facility] Calcium 9.2 8.5 - 10.5 mg/dL 12/03/2023 11:42 [facility] BUN 14 10 - 26 mg/dL 12/03/2023 11:42 [facility] Creatinine 0.54(L) 0.66 - 1.25 mg/dL 12/03/2023 11:42 [facility] eGFR 104 >60 mL/min/1.73 m2 12/03/2023 11:42 [facility] Blood VENOUS BLOOD / Unknown Venipuncture / Unknown 12/03/2023 10:15 EDT 12/03/2023 11:00 EDT us Wero Avilez MD CHEMISTRY & BLOOD GAS OR DERABLES Final Result Performing Organization Address [facility] Co de Phone Number [facility] [address] [place] [address] * (ABNORMAL) VITAMIN A, S (12/03/2023 10:15 EDT) Vitamin A 27.4(L) 32.5 - 78.0 mcg/dL 12/07/2023 15:06 EDT [facility] [employer] Comment: ADDITIONAL INFORMATION This test was developed and its performance characteristics determined by [facility] in a manner consistent with CLIA requirements. This test has not been cleared or approved by the U.S. Food and Drug Administration. Test Performed by: [facility] [address] [place] [address] Fulfillment Mail Clerk: Sarah Whaley Ph.D.; CLIA# [id number] Blood VENOUS BLOOD / Unknown Venipuncture / Unknown 12/03/2023 10:15 EDT 12/03/2023 10:58 EDT Wero Avilez MD CHEMISTRY & BLOOD GAS OR DERABLES Final Result Performing Organization Address [facility] de Phone Number [facility] [address] [place] [address] * METHYLMALONIC ACID (12/03/2023 10:15 EDT) Methylmalonic Acid, QN, S 0.10 <=0.40 nmol/mL 12/06/2023 12:11 EDT [facility] [employer] Comment: ADDITIONAL INFORMATION This test was developed and its performance characteristics determined by [facility] in a manner consistent with CLIA requirements. This test has not been cleared or approved by the U.S. Food and Drug Administration. Test Performed by: [facility] - [address] [address] Fulfillment Mail Clerk: Sarah Whaley Ph.D.; CLIA# [id number] Blood VENOUS BLOOD / Unknown Venipuncture / Unknown 12/03/2023 10:15 EDT 12/03/2023 10:58 EDT Wero Avilez MD CHEMISTRY & BLOOD GAS OR DERABLES Final Result [address] [address] * VITAMIN B12 (12/03/2023 10:15 EDT) Pathologist [facility] Vitamin B12 331 211 - 911 pg/mL 12/03/2023 12:30 EDT [facility] Blood VENOUS BLOOD / Unknown Venipuncture / Unknown 12/03/2023 10:15 EDT 12/03/2023 11:00 EDT Wero Avilez MD CHEMISTRY & BLOOD GAS OR DERABLES Final Result [facility] [address] [place] [phone] * (ABNORMAL) COMPLETE BLOOD COUNT AND DIFFERENTIAL (12/03/2023 10:15 EDT) Pathologist [facility] WBC 4.47 4.00 - 10.40 K/cmm 12/03/2023 11:05 EDT [facility] RBC 3.56(L) 4.36 - 5.78 M/cmm 12/03/2023 11:05 [facility] Hemoglobin 11.2(L) 13.8 - 17.3 g/dL 12/03/2023 11:05 [facility] HCT 34.0(L) 39.5 - 50.2 % 12/03/2023 11:05 [facility] MCV 96(H) 81 - 95 fL 12/03/2023 11:05 [facility] MCH 31.5 27.6 - 33.0 pg 12/03/2023 11:05 [facility] MCHC 32.9 32.8 - 36.4 g/dL 12/03/2023 11:05 [facility] RDW-CV 14.6(H) <14.2 % 12/03/2023 11:05 [facility] RDW-SD 51.7(H) <46.0 fl 12/03/2023 11:05 [facility] PLT 187 141 - 377 K/cmm 12/03/2023 11:05 [facility] MPV 10.3 9.5 - 12.7 fL 12/03/2023 11:05 [facility] % Neutrophils 70.3 Not Indicated % 12/03/2023 11:05 [facility] % Lymphocytes 14.3 Not Indicated % 12/03/2023 11:05 [facility] % Monocytes 11.9 Not Indicated % 12/03/2023 11:05 [facility] % Eosinophils 2.7 Not Indicated % 12/03/2023 11:05 [facility] % Basophils 0.4 Not Indicated % 12/03/2023 11:05 [facility] % Immature Grans 0.4 Not Indicated % 12/03/2023 11:05 [facility] Absolute Neutrophils 3.14 2.20 - 8.85 K/cmm 12/03/2023 11:05 [facility] Absolute Lymphocytes 0.64(L) 1.09 - 3.30 K/cmm 12/03/2023 11:05 [facility] Absolute Monocytes 0.53 0.10 - 0.80 K/cmm 12/03/2023 11:05 [facility] Absolute Eosinophils 0.12 0.03 - 0.61 K/cmm 12/03/2023 11:05 [facility] ABS Basophils 0.02 0.01 - 0.11 K/cmm 12/03/2023 11:05 EDT [facility] Absolute Immature Grans 0.02 0.00 - 0.06 K/cmm 12/03/2023 11:05 EDT [facility] Type of Differential: Auto 12/03/2023 11:05 EDT [facility] Blood VENOUS BLOOD / Unknown Venipuncture / Unknown 12/03/2023 10:15 EDT 12/03/2023 10:56 EDT us Wero Avilez MD PACKAGES & DNA PROBE ORD ERABLES Final Result [facility] [address] [place], [place] [phone] documented in this encounter Visit Diagnoses Diagnosis Optic atrophy- Primary Optic atrophy, unspecified Vision loss of right eye Unqualified visual loss, one eye Vision loss of right eye Unqualified visual loss, one eye Optic atrophy Optic atrophy, unspecified documented in this encounter Historical Medications * This list may reflect changes made after this encounter. omeprazole (PRILOSEC) 20 mg capsule Take 1 Capsule by mouth daily. added in this encounter Eye Exam Visual Acuity (Snellen - Linear) Right eye Left eye Dist sc CF at 3' prosthetic Tonometry (Applanation, 8:44) Right eye Left eye Pressure 15.5 Pupils Dark Light Shape React Right eye 4.5 3.25 Round Brisk Left eye Neuro/Psych Oriented x3: Yes Mood/Affect: Normal Dilation Right eye: Phenylephrine 2.5 %, Tropicamide 1% @ 8:44 Wearing Rx Sphere Cylinder Add Right eye +0.25 Sphere +2.50 Left eye Balance Sphere +2.50 Care Teams Instrument Designer Relationship Specialty Start Date End Date Tristen Hunter MD [address] [place] [address] [place] [address] PCP - General Family Medicine - Primary Care 12/03/23 documented as of this encounter
--- OUTSIDE RECORDS SUMMARY | 2024-03-12 11:02 | XMS_ITS | Encounter Summary ---
Author Organization [facility] Address [address] [place] [address] Care Team Providers Care Fashion Buyer Name Role Phone Unknown, Provider Primary Care Provider Unava ilable Reason for Visit * Reason Onset Date Comments Paperwork request 03/28/2021 Encounter Details Date Type Department Care Team (Late st Contact Info) Description 03/27/[address] [facility] Ophthalmology - [facility] [address] [place], [place] [phone] Wero Avilez MD [address] [place] [address], [facility] [address] [place] [address] Paperwork request Social History Tobacco Use Types [...] still has notreceived his paperwork from [facility] that he left to be scanned into our records. He wants the originals back not a copy. PCB to let him know and I did verify his address. * Telephone Encounter - Daria Thomas - 03/27/2021 1019 EST Spoke with patient. States he left notes from [facility] here at the time of his appointment. [...] 03/30/2024 9:15 EST Office Visit [facility] Ophthalmology - [facility] [address] [place], [place] [address] Uday Reece MD 111 [facility], [address] [place] [address] 04/15/2024 12:30 EST Office Visit [facility] Ophthalmology - [address] [address] Barby Guzman MD 111 [facility], [address] [place] [phone] documented as of this encounter Visit Diagnoses Not on filedocumented in this encounter Care Teams Fashion Buyer Relationship Specialty Start Date End Date Unknown, Provider, PCP - General 03/04/20 12/02/23 documented as of this encounter
--- OUTSIDE RECORDS SUMMARY | 2024-03-12 11:02 | XMS_ITS | Encounter Summary ---
Author Organization [facility] Address [address] [place] [address] Care Team Providers Care Extruder Name Role Phone Tristen Hunter MD Primary Care Provider [phone] Reason for Referral * Radiology Services (Routine/Next Available) - Authorization Not Required Specialty Diagnoses / Procedures Referred By Contac t Referred To Contact Radiology Diagnoses Vision loss of right eye Optic atrophy Procedures MR ORBIT W WO CONTRAST Wero Avilez MD Phone: tel: fax: [facility] Referral ID Status Reason Start Date Expiration Date Visits Requested Visits Authorized [id number] Authorization Not Required 12/03/2023 1 1 Reason for Visit * Radiology Services (Routine/Next Available) - Authorization Not Required Specialty Diagnoses / Procedures Referred By Contac t Referred To Contact Radiology Diagnoses Vision loss of right eye Optic atrophy Procedures MR ORBIT W WO CONTRAST Wero Avilez MD Phone: tel: fax: [facility] Referral ID Status Reason Start Date Expiration Date Visits Requested Visits Authorized [id number] Authorization Not Required 12/03/2023 1 1 Encounter Details Date Type Department Care Team (Latest Contact Info) Description 12/24/2023 13:00 EDT - 12/24/2023 23:59 EDT Hospital Encounter [facility] [address] [place] [address] Vision loss of right eye; Optic atrophy Discharge Disposition: Home or Self Care Social History Tobacco Use Types Packs/Day Years Used Date Smoking Tobacco: Never Assessed Sex and Gender Information Value Date Recorded Sex Assigned at Not on file Legal Sex Male 9:11 EDT Gender Identity Male 01/24/2021 12:25 EST Sexual Orientation Not on file documented as of this encounter Medications at Time of Discharge amLODIPine (NORVASC) 2.5 mg tablet Take 1 Tablet by mouth daily. aspirin (ASPIR-81 ORAL) Take by mouth. atorvastatin (LIPITOR) 80 mg tablet Take 1 Tablet by mouth daily. carvediloL (COREG) 25 mg tablet Take 1 Tablet by mouth 2 times daily with breakfast and dinner. erythromycin (ROMYCIN) 5 mg/gram (0.5 %) ophthalmic ointment 1 cm as needed. folic acid (FOLVITE) 1 mg tablet Take 1 Tablet by mouth daily. glimepiride (AMARYL) 2 mg tablet Take 2 mg by mouth every morning. isosorbide MONOnitrate (IMDUR) 30 mg CR tablet Take 1 Tablet by mouth every morning. lisinopriL (PRINIVIL) 40 mg tablet Take 1 Tablet by mouth daily. metFORMIN (GLUCOPHAGE) 500 mg tablet Take 500 mg by mouth 2 times daily with breakfast and dinner. naproxen sodium (ANAPROX) 220 mg tablet Take 220 mg by mouth 2 times daily with breakfast and dinner. omega 7-jqe-fwd-fish oil (FISH OIL) 100-160-1,000 mg capsule Take by mouth. omeprazole (PRILOSEC) 20 mg capsule Take 1 Capsule by mouth daily. TAMSulosin (FLOMAX) 0.4 mg capsule Take 1 Capsule by mouth daily. timolol (TIMOPTIC) 0.25 % ophthalmic solutionIndicatio ns:Vision loss of right eye Place 1 Drop into the right eye 2 times daily. 10 mL 02/17/2021 UNKNOWN TO PATIENT Injection every 6 months documented as of this encounter Discharge Disposition Disposition Code Departure Means Destination Home or Self Care documented in this encounter Plan of Treatment Upcoming Encounters Date Type Department Care Team (Late st Contact Info) Description 03/30/2024 9:15 EST Office Visit [facility] Ophthalmology [address] [phone] Uday Reece MD [address] [place] [address] [address] [place] [phone] 04/15/2024 12:30 EST Office Visit [facility] Ophthalmology [address] [phone] Barby Guzman MD [address] [place] [phone] documented as of this encounter Procedures [...] the sequela of prior inflammation or injury. [id number] Narrative 12/24/2023 16:46 EDT EXAM: MRI ORBITS [...] EXTRACRANIAL SOFT TISSUES: Unremarkable. Resulting Agency Comment [id number] Procedure Note Keon Reyna MD - 12/24/2023 [...] representing the sequela of priorinflammation or injury. [id number] Wero Avilez MD IMG MRI ORDERABLES Final Result documented in this encounter Visit Diagnoses Diagnosis Vision loss of right eye Unqualified visual loss, one eye Optic atrophy Optic atrophy, unspecified documented in this encounter Administered Medications Inactive Administered Medications - up to 3 most recent administrations Medication Order MAR Action Action Date Dose Rate Site gadoterate meglumine solution 1-30 mL 1-30 mL, intravenous, Once in imaging, 1 dose, Starting on Sat12/24/23 at 1526, Until Sat12/24/23 at 1526, Routine, Imaging Protocol Orders Given 12/24/2023 15:26 EDT 19 mL documented in this encounter Orders Medications Ordered That Alhaji ht Not Have Been Administered Count Last Ordered Date First Ordered Date gadoterate meglumine solution 1-30 mL 1 documented in this encounter Care Teams Extruder Relationship Specialty Start Date End Date Tristen Hunter MD [address] [place] [address] [place] [id number] PCP - General Family Medicine - Primary Care 12/03/23 documented as of this encounter
--- OUTSIDE RECORDS SUMMARY | 2024-03-12 11:02 | XMS_ITS | Encounter Summary ---
Author Organization [facility] Address [address] [place] [address] Care Team Providers Care Lining Cementer Name Role Phone Unavailable Primary Care Provider Unavailabl e Reason for Visit * (Routine/Next Available) - Receiving Office to Obtain Authorization Specialty Diagnoses / Procedures Referred By Marques livingston Referred To Contact Procedures MR OUTSIDE IMAGES NEURO Unknown, Provider, MD Referral ID Status Reason Start Date Expiration Date Visits Requested Visits Authorized [id number] Receiving Office to Obtain Authorization 1 1 1 Encounter Details Date Type Department Care Team (Latest Contact Info) Description 11/26/2019 0:05 EDT - 11/26/2019 23:59 EDT Hospital Encounter [facility] [place] Discharge Disposition: Home [...] Info) Description 03/30/2024 9:15 EST Office Visit [facility] Ophthalmology - Main [place] [address] [place], [place] [address] Uday Reece MD [address] [facility], [address] [place] [address] 04/15/2024 12:30 EST Office Visit [facility] Ophthalmology - Main [place] [address] [place], [place] [phone] Barby Guzman MD [address] [facility], [address] [place] [address] documented as of this encounter Procedures Procedure Name Priority Date/Time Associated Diagnosis Comments MR OUTSIDE IMAGES NEURO Routine 12/20/2020 9:16 EDT documented in this encounter Results * MR OUTSIDE IMAGES NEURO (12/20/2020 9:16 EDT) Narrative 12/20/2020 9:16 EDT This is a non-reportable exam. us Provider Unknown MD STAUFFER OTHER IMAGING ORDERABLES Final Result documented in this encounter Visit Diagnoses Not on filedocumented in this encounter
--- OUTSIDE RECORDS SUMMARY | 2024-03-12 11:02 | XMS_ITS | Encounter Summary ---
Author Organization [facility] Address [address] [place] [address] Care Team Providers Care Filter Press Operator Name Role Phone Unavailable Primary Care Provider Unavailabl e Reason for Visit * (Routine/Next Available) - Receiving Office to Obtain Authorization Specialty Diagnoses / Procedures Referred By Marques livingston Referred To Contact Procedures MR OUTSIDE IMAGES NEURO Unknown, Provider, MD Referral ID Status Reason Start Date Expiration Date Visits Requested Visits Authorized [id number] Receiving Office to Obtain Authorization 1 1 1 Encounter Details Date Type Department Care Team (Latest Contact Info) Description 11/26/2019 - 11/26/2019 0:04 EDT Hospital Encounter [facility] Secondary [place] Discharge Disposition: Home or [...] Info) Description 03/30/2024 9:15 EST Office Visit [facility] Ophthalmology - [facility] [address] [place], [place] [address] Uday Reece MD 111 [facility], [address] [place] [phone] 04/15/2024 12:30 EST Office Visit [facility] Ophthalmology - Main [place] [address] [place], [place] [phone] Barby Guzman MD 111 [facility], [address] [place] [address] documented as of this encounter Procedures Procedure Name Priority Date/Time Associated Diagnosis Comments MR OUTSIDE IMAGES NEURO Routine 12/20/2020 9:13 EDT documented in this encounter Results * MR OUTSIDE IMAGES NEURO (12/20/2020 9:13 EDT) Narrative 12/20/2020 9:13 EDT This is a non-reportable exam. us Provider Unknown MD STAUFFER OTHER IMAGING ORDERABLES Final Result documented in this encounter Visit Diagnoses Not on filedocumented in this encounter
--- OUTSIDE RECORDS SUMMARY | 2024-03-12 11:02 | XMS_ITS | Encounter Summary ---
Author Organization [facility] Address [address] [place] [address] Care Team Providers Care Line Pilot Name Role Phone Unknown, Provider Primary Care Provider Tristen Lagos MD Primary Care Provider [phone] Encounter Details Date Type Department Care Team (Late st Contact Info) Description 06/29/2022 Lab Requisition [facility] Pathology & Laboratory Medicine - [address] [address] Outr Resulting Lab, Provider Social History Tobacco [...] 03/30/2024 9:15 EST Office Visit [facility] Ophthalmology [address] [address] Uday Reece MD [address] [place] [address], [address] [place] [phone] 04/15/2024 12:30 EST Office Visit [facility] Ophthalmology [address] [place] [address] Barby Guzman MD 111 [facility], [address] [place] [phone] documented as of this encounter Procedures Procedure Name Priority Date/Time Associated Diagnosis Comments TESTOSTERONE Routine 06/29/2022 12:02 EDT documented in this encounter Results * (ABNORMAL) TESTOSTERONE (06/29/2022 12:02 EDT) Testosterone 50(L) 229 - 902 ng/dL 06/29/2022 23:28 EDT [facility] Blood VENOUS BLOOD / Unknown 06/29/2022 12:02 EDT 06/29/2022 22:13 EDT Narrative [facility] - 06/29/2022 23:28 EDT The results of this assay can be falsely elevated due to the consumption of Biotin. us Provider Outr Resulting Lab CHEMISTRY & BLOOD GA S ORDERABLES Final Result [facility] [address] [place] [address] documented in this encounter Visit Diagnoses Not on filedocumented in this encounter Care Teams Line Pilot Relationship Specialty Start Date End Date Unknown, Provider, PCP - General 03/04/20 12/02/23 Tristen Hunter MD [address] [place] [address] PCP - General Family Medicine - Primary Care 12/03/23 documented as of this encounter
--- OUTSIDE RECORDS SUMMARY | 2024-03-12 11:02 | XMS_ITS | Encounter Summary ---
Author Organization [facility] Address [address] [place] [address] Care Team Providers Care Real Estate Paralegal Name Role Phone Unknown, Provider Primary Care Provider Unava ilable Reason for Visit * Reason Comments Eye Problem Encounter Details Date Type Department Care Team (Late st Contact Info) Description 11/29/2021 8:00 EDT Office Visit [facility] Ophthalmology - Main [place] [address] [place], [place] [address] Wero Avilez MD [address] [place] [address], [address] [place] [address] Social History Tobacco Use Types [...] were not included. DIVISION OF OPHTHALMOLOGY [facility] NEURO-OPHTHALMOLOGY FOLLOW-UP 11/29/2021 Mr. Sadler returned for follow-up neuro-ophthalmological examination because of the history of vision loss in his right eye. To recall, this a 71-year-old man who suffered vision loss in his right eye in November 2019. The patient was living in [place] at the time. He reported that he [...] of specialty eye care providers including a neuro-phytopathology teacher. By history it sounds as though the [...] for the patient to have consultation in [place] and we will arrange for the same. I spent a total of 30 minutes on the date of this encounter meeting with the patient and reviewing documentation/coordinating care as described in the above note. Please do not hesitate to contact me with any further questions or concerns. Sincerely, Wero Avilez MD Diplomate, the [place] [employer] farm appraiser Department of Ophthalmology documented in this encounter Plan of Treatment Upcoming Encounters Date Type Department Care Team (Late st Contact Info) Description 03/30/2024 9:15 EST Office Visit [facility] Ophthalmology [address] [address] Uday Reece MD [address] [place] [phone] 04/15/2024 12:30 EST Office Visit [facility] Ophthalmology [address] [phone] Barby Guzman MD [address] [place] [phone] Pending Results Name Type Priority Associated Diagnoses [...] may reflect changes made after this encounter. UNKNOWN TO PATIENT Injection every 6 months naproxen sodium (ANAPROX) 220 mg tablet Take 220 mg by mouth 2 times daily with breakfast and dinner. TAMSulosin (FLOMAX) 0.4 mg capsule Take 1 Capsule by mouth daily. metFORMIN (GLUCOPHAGE) 500 mg tablet Take 500 mg by mouth 2 times daily with breakfast and dinner. lisinopriL (PRINIVIL) 40 mg tablet Take 1 Tablet by mouth daily. omega 0-vcn-edz-fish oil (FISH OIL) 100-160-1,000 mg capsule Take by mouth. isosorbide MONOnitrate (IMDUR) 30 mg CR tablet Take 1 Tablet by mouth every morning. glimepiride (AMARYL) 2 mg tablet Take 2 mg by mouth every morning. amLODIPine (NORVASC) 2.5 mg tablet Take 1 Tablet by mouth daily. folic acid (FOLVITE) 1 mg tablet Take 1 Tablet by mouth daily. erythromycin (ROMYCIN) 5 mg/gram (0.5 %) ophthalmic ointment 1 cm as needed. carvediloL (COREG) 25 mg tablet Take 1 Tablet by mouth 2 times daily with breakfast and dinner. atorvastatin (LIPITOR) 80 mg tablet Take 1 [...] Right eye +0.25 [place]here +2.50 Left eye [place] Sphere +2.50 Care Teams Real Estate Paralegal Relationship Specialty Start Date End Date Unknown, Provider, PCP - General 03/04/20 12/02/23 documented as of this encounter
--- OUTSIDE RECORDS SUMMARY | 2024-03-12 11:02 | XMS_ITS | Encounter Summary ---
Author Organization [facility] Address [address] [place] [address] Care Team Providers Care Manager Of Digital Name Role Phone Unknown, Provider Primary Care Provider Tristen Lagos MD Primary Care Provider [phone] Encounter Details Date Type Department Care Team (Late st Contact Info) Description 08/01/2022 Lab Requisition [facility] Pathology & Laboratory Medicine [address] [address] Alo Carey, DO [address] [place] [address] ,[facility] [address] [place], [place] [phone] Pleural effusion, not elsewhere classified Social History [...] Info) Description 03/30/2024 9:15 EST Office Visit [facility] Ophthalmology - [address] [address] Uday Reece MD 111 [facility], [address] [place] [phone] 04/15/2024 12:30 EST Office Visit [facility] Ophthalmology - [facility] [address] [place], [place] [phone] Barby Guzman MD 111 [facility], [address] [place] [phone] documented as of this encounter Procedures Procedure Name Priority Date/Time Associated Diagnosis Comments NON LIEUTENANT GOVERNOR/FNA CYTOLOGY Today 08/01/2022 14:31 EDT documented in this encounter Results * NON LIEUTENANT GOVERNOR/FNA CYTOLOGY (08/01/2022 14:31 EDT) Note to Patient The following pathology results have been interpreted by your pathologist and may be available to you before your health provider has had the opportunity to review them. Please allow time for your provider to receive these results and explore management options, if applicable. 08/02/2022 14:[facility] Final Diagnosis A. PLEURAL FLUID, CYTOLOGIC EVALUATION: - Negative for malignant cells. - Rare reactive mesothelial cells and mixed inflammation with increased eosinophils present. See comment. 08/02/2022 14:50 T [facility] Diagnosis Comment The cytologic features [...] data including fluid cell counts. 08/02/2022 14:50 [facility] Attestation By the signature below, the attending physician certifies that they have personally conducted a gross and/or microscopic examination of the described specimens and rendered or confirmed the above diagnosis. 08/02/2022 14:50 [facility] at 1450 Clinical History Pleural effusion; J90 08/02/2022 14:50 EDT [facility] Gross Description A. 700cc's of opaque stacey fluid (Heparin added) were received and processed by selective cellular enhancement technique. 08/02/2022 14:50 EDT [facility] Performing Lab [facility] 08/02/2022 14:50 EDT [facility] Scanned Images 08/02/2022 14:50 EDT [facility] ZZUNK PLEURAL / Unknown 08/01/2022 14:31 EDT 08/02/2022 6:48 EDT us Alo Carey DO PATHOLOGY ORDERABLES Fin al Result [facility] [address] [place] [address] documented in this encounter Visit Diagnoses Diagnosis Pleural effusion, not elsewhere classified documented in this encounter Care Teams Manager Of Digital Relationship Specialty Start Date End Date Unknown, Provider, PCP - General 03/04/20 12/02/23 Tristen Hunter MD [address] [place] [address] [place] [address] PCP - General Family Medicine - Primary Care 12/03/23 documented as of this encounter
--- OUTSIDE RECORDS SUMMARY | 2024-03-12 11:02 | XMS_ITS | Encounter Summary ---
Author Organization [facility] Address [address] [place] [address] Care Team Providers Care Inspector Repairer Name Role Phone Tristen Hunter MD Primary Care Provider [phone] Reason for Visit * Reason Onset Date Comments Other 12/18/2023 Encounter Details Date Type Department Care Team (Late st Contact Info) Description 12/18/2023 Telephone [facility] Ophthalmology - [address] [place], [place] [phone] Wero Avilez MD [address] [place] [address], [facility] [address] [place] [address] Other Social History Tobacco Use Types Packs/Day Years Used Date Smoking Tobacco: Never Assessed Sex and Gender Information Value Date Recorded Sex Assigned at Not on file Legal Sex Male 9:11 EDT Gender Identity Male 01/24/2021 12:25 EST Sexual Orientation Not on file documented as of this encounter Miscellaneous Notes * Telephone Encounter - Joyce Heller COT - 12/20/2023 0859 EDT Pt made aware that follow up will depend on his MRI results which is scheduled for Jan 14, 2024. Ptto call us with any changes. 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 He wasn't sure what Dr Avilez had planned dependent on the results of the MRI, but wanted to let him know about this. documented in this encounter Plan of Treatment Upcoming Encounters Date Type Department Care Team (Late st Contact Info) Description 03/30/2024 9:15 EST Office Visit [facility] Ophthalmology [address] [phone] Uday Reece MD [address] [place] [phone] 04/15/2024 12:30 EST Office Visit [address] [address] Barby Guzman MD [address] [place] [phone] documented as of this encounter Visit Diagnoses Not on filedocumented in this encounter Care Teams Inspector Repairer Relationship Specialty Start Date End Date Tristen Hunter MD [address] [place] [address] [place] [address] PCP - General Family Medicine - Primary Care 12/03/23 documented as of this encounter
--- OUTSIDE RECORDS SUMMARY | 2024-03-12 11:02 | XMS_ITS | Encounter Summary ---
Author Organization [facility] Address [address] [place] [address] Care Team Providers Care Cash Surrender Calculator Name Role Phone Unknown, Provider Primary Care Provider Tristen Lagos MD Primary Care Provider [phone] Encounter Details Date Type Department Care Team (Late st Contact Info) Description 11/14/2021 Lab Requisition [facility] Pathology & Laboratory Medicine - [address] [address] Outr Resulting Lab, Provider Social History Tobacco [...] Info) Description 03/30/2024 9:15 EST Office Visit [facility] Ophthalmology [address] [address] Uday Reece MD [address] [place] [address], [address] [place] [phone] 04/15/2024 12:30 EST Office Visit [facility] Ophthalmology [address] [place] [address] Barby Guzman MD 111 [facility], [address] [place] [phone] documented as of this encounter Procedures Procedure Name Priority Date/Time Associated Diagnosis Comments TESTOSTERONE Routine 11/14/2021 13:20 EDT documented in this encounter Results * (ABNORMAL) TESTOSTERONE (11/14/2021 13:20 EDT) Testosterone 8(L) 229 - 902 ng/dL 11/15/2021 9:58 EDT [facility] Blood VENOUS BLOOD / Unknown 11/14/2021 13:20 EDT 11/14/2021 21:09 EDT Narrative [facility] - 11/15/2021 9:58 EDT The results of this assay can be falsely elevated due to the consumption of Biotin. us Provider Outr Resulting Lab CHEMISTRY & BLOOD GA S ORDERABLES Final Result [facility] [address] [place] [address] documented in this encounter Visit Diagnoses Not on filedocumented in this encounter Care Teams Cash Surrender Calculator Relationship Specialty Start Date End Date Unknown, Provider, PCP - General 03/04/20 12/02/23 Tristen Hunter MD [address] [place] [address] PCP - General Family Medicine - Primary Care 12/03/23 documented as of this encounter
--- OUTSIDE RECORDS SUMMARY | 2024-03-12 11:02 | XMS_ITS | Encounter Summary ---
Author Organization [facility] Address [address] [place] [address] Care Team Providers Care Platform Supervisor Name Role Phone Tristen Hunter MD Primary Care Provider Encounter Details Date Type Department Care Team (Late st Contact Info) Description 12/03/2023 10:00 EDT Phlebotomy Only [facility] ED Center 2 Phlebotomy [address] [place], [place] [id number] Property Condition Assessor, Acc Phlebotomy Vision loss of right eye; Optic atrophy Social History Tobacco Use Types Packs/Day Years [...] Info) Description 03/30/2024 9:15 EST Office Visit [facility] Ophthalmology [address] [phone] Uday Reece MD 111 [facility], Level 5 [place] [phone] 04/15/2024 12:30 EST Office Visit [facility] [address] [place], [place] [phone] Barby Guzman MD 111 [facility], [address] 5 [place] [address] documented as of this encounter Procedures Procedure Name Priority Date/Time Associated Diagnosis Comments METHYLMALONIC ACID Routine 12/03/2023 10 :15 EDT Vision loss of right eye Optic atrophy VITAMIN A, S Routine 12/03/2023 10:15 EDT Vision loss of right eye Optic atrophy COMPLETE BLOOD COUNT AND DIFFERENTIAL Routine 12/03/2023 10:15 EDT Vision loss of right eye Optic atrophy VITAMIN B12 Routine 12/03/2023 10:15 EDT Vision loss of right eye Optic atrophy BASIC METABOLIC PANEL (BMP) Routine 12/03/2023 10:15 EDT Vision loss of right eye Optic atrophy documented in this encounter Results * (ABNORMAL) BASIC METABOLIC PANEL (BMP) (12/03/2023 10:15 EDT) Sodium 140 136 - 145 mmol/L 12/03/2023 11:42 [facility] Potassium 4.0 3.5 - 5.0 mmol/L 12/03/2023 11:42 [facility] Chloride 100 96 - 110 mmol/L 12/03/2023 11:42 [facility] CO2 Total 30 22 - 32 mmol/L 12/03/2023 11:42 [facility] Anion Gap 10 5 - 14 mmol/L 12/03/2023 11:42 [facility] Glucose 86 70 - 99 mg/dl 12/03/2023 11:42 [facility] Calcium 9.2 8.5 - 10.5 mg/dL 12/03/2023 11:42 [facility] BUN 14 10 - 26 mg/dL 12/03/2023 11:42 [facility] Creatinine 0.54(L) 0.66 - 1.25 mg/dL 12/03/2023 11:42 EDT [facility] eGFR 104 >60 mL/min/1.73 m2 12/03/2023 11:42 EDT [facility] Blood VENOUS BLOOD / Unknown Venipuncture / Unknown 12/03/2023 10:15 EDT 12/03/2023 11:00 EDT Wero Avilez MD CHEMISTRY & BLOOD GAS OR DERABLES Final Result [facility] [address] [place] [address] * (ABNORMAL) VITAMIN A, S (12/03/2023 10:15 EDT) Vitamin A 27.4(L) 32.5 - 78.0 mcg/dL 12/07/2023 15:06 EDT [facility] Comment: ADDITIONAL INFORMATION This test was developed and its performance characteristics determined by [facility] in a manner consistent with CLIA requirements. This test has not been cleared or approved by the U.S. Food and Drug Administration. Test Performed by: [facility] - [address] [address] [employer]erox Machine Mechanic: Sarah Whaley Ph.D.; CLIA# [id number] Blood VENOUS BLOOD / Unknown Venipuncture / Unknown 12/03/2023 10:15 EDT 12/03/2023 10:58 EDT Wero Avilez MD CHEMISTRY & BLOOD GAS OR DERABLES Final Result [facility] [address] [place] [address] * METHYLMALONIC ACID (12/03/2023 10:15 EDT) Methylmalonic Acid, QN, S 0.10 <=0.40 nmol/mL 12/06/2023 12:11 EDT [facility] Comment: ADDITIONAL INFORMATION This test was developed and its performance characteristics determined by [facility] in a manner consistent with CLIA requirements. This test has not been cleared or approved by the U.S. Food and Drug Administration. Test Performed by: [address] [address] [employer] Machine Mechanic: Sarah Whaley Ph.D.; CLIA# [id number] Blood VENOUS BLOOD / Unknown Venipuncture / Unknown 12/03/2023 10:15 EDT 12/03/2023 10:58 EDT Wero Avilez MD CHEMISTRY & BLOOD GAS OR DERABLES Final Result Performing Organization Address City/[facility]/ZIP Co de Phone Number [address] [address] * VITAMIN B12 (12/03/2023 10:15 EDT) Vitamin B12 331 211 - 911 pg/mL 12/03/2023 12:30 EDT [facility] Blood VENOUS BLOOD / Unknown Venipuncture / Unknown 12/03/2023 10:15 EDT 12/03/2023 11:00 EDT Wero Avilez MD CHEMISTRY & BLOOD GAS OR DERABLES Final Result [facility] [address] [place] [address] * (ABNORMAL) COMPLETE BLOOD COUNT AND DIFFERENTIAL (12/03/2023 10:15 EDT) WBC 4.47 4.00 - 10.40 K/cmm 12/03/2023 11:05 EDT [facility] RBC 3.56(L) 4.36 - 5.78 M/cmm 12/03/2023 11:05 [facility] Hemoglobin 11.2(L) 13.8 - 17.3 g/dL 12/03/2023 11:05 [facility] HCT 34.0(L) 39.5 - 50.2 % 12/03/2023 11:05 [facility] MCV 96(H) 81 - 95 fL 12/03/2023 11:05 [facility] MCH 31.5 27.6 - 33.0 pg 12/03/2023 11:05 [facility] MCHC 32.9 32.8 - 36.4 g/dL 12/03/2023 11:05 [facility] RDW-CV 14.6(H) <14.2 % 12/03/2023 11:05 [facility] RDW-SD 51.7(H) <46.0 fl 12/03/2023 11:05 [facility] PLT 187 141 - 377 K/cmm 12/03/2023 11:05 [facility] MPV 10.3 9.5 - 12.7 fL 12/03/2023 11:05 [facility] % Neutrophils 70.3 Not Indicated % 12/03/2023 11:05 [facility] % Lymphocytes 14.3 Not Indicated % 12/03/2023 11:05 [facility] % Monocytes 11.9 Not Indicated % 12/03/2023 11:05 [facility] % Eosinophils 2.7 Not Indicated % 12/03/2023 11:05 [facility] % Basophils 0.4 Not Indicated % 12/03/2023 11:05 [facility] % Immature Grans 0.4 Not Indicated % 12/03/2023 11:05 [facility] Absolute Neutrophils 3.14 2.20 - 8.85 K/cmm 12/03/2023 11:05 [facility] Absolute Lymphocytes 0.64(L) 1.09 - 3.30 K/cmm 12/03/2023 11:05 EDT [facility] Absolute Monocytes 0.53 0.10 - 0.80 K/cmm 12/03/2023 11:05 EDT [facility] Absolute Eosinophils 0.12 0.03 - 0.61 K/cmm 12/03/2023 11:05 EDT [facility] ABS Basophils 0.02 0.01 - 0.11 K/cmm 12/03/2023 11:05 T [facility] Absolute Immature Grans 0.02 0.00 - 0.06 K/cmm 12/03/2023 11:05 EDT [facility] Type of Differential: Auto 12/03/2023 11:05 T [facility] Blood VENOUS BLOOD / Unknown Venipuncture / Unknown 12/03/2023 10:15 EDT 12/03/2023 10:56 EDT Wero Avilez MD PACKAGES & DNA PROBE ORD ERABLES Final Result [facility] [address] [place], [place] [address] documented in this encounter Visit Diagnoses Diagnosis Vision loss of right eye Unqualified visual loss, one eye Optic atrophy Optic atrophy, unspecified documented in this encounter Care Teams Platform Supervisor Relationship Specialty Start Date End Date Tristen Hunter MD [address] [place] [address] [place] [address] PCP - General Family Medicine - Primary Care 12/03/23 documented as of this encounter
--- OUTSIDE RECORDS SUMMARY | 2024-03-12 11:02 | XMS_ITS | Encounter Summary ---
Author Organization [facility] Address [address] [place] [address] Care Team Providers Care Motor Coach Tour Operator Name Role Phone Unknown, Provider Primary Care Provider Tristen Lagos MD Primary Care Provider [phone] Encounter Details Date Type Department Care Team (Late st Contact Info) Description 06/21/2021 Lab Requisition [facility] Pathology & Laboratory Medicine - [address] [address] Outr Resulting Lab, Provider Social History Tobacco [...] 03/30/2024 9:15 EST Office Visit [facility] Ophthalmology [address] [phone] Uday Reece MD [address] [place] [address], [address] [place] [phone] 04/15/2024 12:30 EST Office Visit [facility] Ophthalmology [address] [place] [address] Barby Guzman MD 111 [facility], [address] [place] [phone] documented as of this encounter Procedures Procedure Name Priority Date/Time Associated Diagnosis Comments TESTOSTERONE Routine 06/21/2021 13:16 EDT documented in this encounter Results * (ABNORMAL) TESTOSTERONE (06/21/2021 13:16 EDT) Testosterone 16(L) 229 - 902 ng/dL 06/21/2021 22:58 EDT [facility] Blood VENOUS BLOOD / Unknown 06/21/2021 13:16 EDT 06/21/2021 21:37 EDT Narrative [facility] - 06/21/2021 22:58 EDT The results of this assay can be falsely elevated due to the consumption of Biotin. us Provider Outr Resulting Lab CHEMISTRY & BLOOD GA S ORDERABLES Final Result [facility] [address] [place] [address] documented in this encounter Visit Diagnoses Not on filedocumented in this encounter Care Teams Motor Coach Tour Operator Relationship Specialty Start Date End Date Unknown, Provider, PCP - General 03/04/20 12/02/23 Tristen Hunter MD [address] [place] [address] PCP - General Family Medicine - Primary Care 12/03/23 documented as of this encounter
--- OUTSIDE RECORDS SUMMARY | 2024-03-12 11:02 | XMS_ITS | Encounter Summary ---
Author Organization [facility] Address [address] [place] [address] Care Team Providers Care Fruit And Vegetable Factory Worker Name Role Phone Unknown, Provider Primary Care Provider Tristen Lagos MD Primary Care Provider [phone] Encounter Details Date Type Department Care Team (Late st Contact Info) Description 01/10/2021 Lab Requisition [facility] Pathology & Laboratory Medicine [address] [address] Mala Singh MD [address] [place] [phone] Encounter for other general examination Social History [...] Info) Description 03/30/2024 9:15 EST Office Visit [facility] Ophthalmology - [address] [address] Uday Reece MD [address] [place] [address], [facility] [address] [place] [phone] 04/15/2024 12:30 EST Office Visit [facility] Ophthalmology - [facility] [address] [place], [place] [phone] Baryb Guzman MD 111 [facility], [address] [place] [address] documented as of this encounter [...] explore management options, if applicable. 01/13/2021 15:15 [facility] Final Diagnosis A. STOMACH, ANTRUM, BIOPSY: - Superficial fragments of gastric mucosa with chemical (reactive) gastropathy. B. GASTROESOPHAGEAL JUNCTION, BIOPSY: - Squamocolumnar junctional mucosa with ulcer and underlying granulation tissue. - Negative for fungal organisms on PAS stain. - Negative for viropathic cytologic changes. - Negative for intestinal metaplasia. - Negative for dysplasia. 01/13/2021 15:15 [facility] Attestation By the signature below, the attending physician certifies that they have 1) personally conducted a gross and/or microscopic examination of the described specimen(s), and/or personally interpreted the results of laboratory testing of the described specimen(s), and 2) personally rendered or confirmed the above diagnosis. 01/13/2021 15:15 [facility] at 1515 Clinical History Abnormal imaging; gastritis, esophagitis, hiatal hernia 01/13/2021 15:15 [facility] Gross Description A. Received in [...] B1. CASA LINDO(ASCP) 01/11/2021 8:08 01/13/2021 15:15 EST [facility] Performing Lab [facility] 15:15 EST [facility] Scanned Images 01/13/2021 15:15 EST [facility] Tissue ENTIRE ESOPHAGUS / Unknown 01/10/2021 12:24 EST 01/10/2021 23:36 EST Tissue specimen (specimen) ESOPHAGEAL STRUCTURE / Unknown 01/10/2021 12:24 EST 01/10/2021 23:36 EST us Mala Singh MD PATHOLOGY ORDERABLES Fi nal Result [facility] [address] [place] [address] documented in this encounter Visit Diagnoses Diagnosis Encounter for other general examination documented in this encounter Care Teams Fruit And Vegetable Factory Worker Relationship Specialty Start Date End Date Unknown, Provider, PCP - General 03/04/20 12/02/23 Tristen Hunter MD [address] [place] [address] PCP - General Family Medicine - Primary Care 12/03/23 documented as of this encounter
--- OUTSIDE RECORDS SUMMARY | 2024-03-12 11:02 | XMS_ITS | Encounter Summary ---
Author Organization [facility] Address [address] [place] [address] Care Team Providers Care Washing Machine Loader Name Role Phone Unknown, Provider Primary Care Provider Tristen Lagos MD Primary Care Provider [phone] Encounter Details Date Type Department Care Team (Late st Contact Info) Description 08/01/[address] [facility] Pathology & Laboratory Medicine - [address] [address] Outr Resulting Lab, Provider Social History Tobacco [...] Info) Description 03/30/2024 9:[address] [facility] Ophthalmology [address] [phone] Uday Reece MD [address] [place] [address], [address] [place] [phone] 04/15/2024 12:[address] [facility] Ophthalmology - [address] [address] Barby Guzman MD 111 [facility], [address] [place] [address] documented as of this encounter Procedures Procedure Name Priority Date/Time Associated Diagnosis Comments TOTAL PROTEIN, FLUID Routine 08/01/2022 14:31 EDT LDH, FLUID Routine 08/01/2022 14:31 EDT documented in this encounter Results * TOTAL PROTEIN, FLUID (08/01/2022 14:31 EDT) Total Protein, Fluid 4.3 See Note g/dL 08/01/2022 22:08 EDT [facility] Comment: Pleural fluid Reference range unavailable. Clinical correlation required. This Fluid Total Protein assay was developed and its performance characteristics determined by [facility]. ??It has not been cleared or approved by the Food and Drug Administration. Reference range unavailable. Clinical correlation required. This Fluid Total Protein assay was developed and its performance characteristics determined by [facility]. ??It has not been cleared or approved by the Food and Drug Administration. Fluid PLEURAL / Unknown 08/01/2022 14:31 EDT 08/01/2022 21:31 EDT us Provider Outr Resulting Lab GEN LAB UNIT COLLECT ORDERABLES Final Result [facility] [address] [place] [address] * LDH, FLUID (08/01/2022 14:31 EDT) LDH, Fluid 696 See Note IU/L 08/01/2022 22:08 EDT [facility] Comment: Pleural fluid Reference range unavailable. Clinical correlation required. This Fluid LDH assay was developed and its performance characteristics determined by [facility]. ??It has not been cleared or approved by the [place] Food and Drug Administration. Fluid PLEURAL / Unknown 08/01/2022 14:31 EDT 08/01/2022 21:31 EDT us Provider Outr Resulting Lab GEN LAB UNIT COLLECT ORDERABLES Final Result [facility] [address] [place] [address] documented in this encounter Visit Diagnoses Not on filedocumented in this encounter Care Teams Washing Machine Loader Relationship Specialty Start Date End Date Unknown, Provider, PCP - General 03/04/20 12/02/23 Tristen Hunter MD [address] [place] [address] [place] [address] PCP - General Family Medicine - Primary Care 12/03/23 documented as of this encounter
--- OUTSIDE RECORDS SUMMARY | 2024-03-12 11:02 | XMS_ITS | Encounter Summary ---
Author Organization [facility] Address [address] [place] [address] Care Team Providers Care Food Concession Manager Name Role Phone Tristen Hunter MD Primary Care Provider [phone] Encounter Details Date Type Department Care Team (Late st Contact Info) Description 12/03/2023 Orders Only [facility] [address] [phone] Larisa Underwood MD [address] [place] [phone] Social History Tobacco Use Types Packs/Day Years [...] Info) Description 03/30/2024 9:15 EST Office Visit [facility] [address] [phone] Uday Reece MD 111 [facility], [address] [place] [phone] 04/15/2024 12:30 EST Office Visit [facility] - Main [place] [address] [place] [address] Barby Guzman MD 111 [facility], [address] [place] [phone] documented as of this encounter Visit Diagnoses Not on filedocumented in this encounter Care Teams Food Concession Manager Relationship Specialty Start Date End Date Tristen Hunter MD [address] [place] [address] [place] [address] PCP - General Family Medicine - Primary Care 12/03/23 documented as of this encounter
--- OUTSIDE RECORDS SUMMARY | 2024-03-12 11:02 | XMS_ITS | Encounter Summary ---
Author Organization [facility] Address [address] [place] [address] Care Team Providers Care Odd Piece Checker Name Role Phone Unknown, Provider MD Primary Care Provider Unava ilable Reason for Visit * Reason Comments Eye Exam * Consult (Routine) - Closed Specialty Diagnoses / Procedures Referred By Marques livingston Referred To Contact Ophthalmology Diagnoses Unspecified visual loss Alo Carey, DO [address] [place] [address] ,[place] [address] [place] [address] Phone: tel: fax: [address] [address] Phone: tel: fax: Referral ID Status Reason Start Date Expiration Date Visits Re quested Visits Authorized [id number] Closed 1 1 Encounter Details Date Type Department Care Team (Late st Contact Info) Description 02/17/2021 13:00 EST Office Visit [facility] Ophthalmology Main [address] [phone] Wero Avilez MD [address] [place] [address], [address] [place] [address] Social History Tobacco Use Types Packs/Day Years Used Date Smoking Tobacco: Never Assessed Sex and Gender Information Value Date Recorded Sex Assigned at Not on file Legal Sex Male 9:11 EDT Gender Identity Male 01/24/2021 12:25 EST Sexual Orientation Not on file documented as of this encounter Ordered Prescriptions Prescription Sig Dispense Quantity Refills Last Filled Start Date End Date timolol (TIMOPTIC) 0.25 % ophthalmic solutionIndications :Vision loss of right eye Place 1 Drop into the right eye 2 times daily. 10 mL 02/17/2021 documented in this encounter Progress Notes * Wero Avilez MD - 02/17/2021 1300 EST [facility] NEURO-OPHTHALMOLOGY CONSULTATION - 02/17/2021 Patient: Wero Sadler : [address] Carey, Thank you for requesting neuro-ophthalmological consultation on Mr. Sadler because of the history of vision loss in his right eye. This is a 71-year-old man who suffered vision loss in his right eye in November 2019. The patient was living in [place] at the time. He reports that he [...] of specialty eye care providers including a neuro-audit control clerk. By history it sounds as though the [...] concerns. Sincerely, Wero Avilez MD Diplomate, the [place] [employer] linker up Department of Ophthalmology NEURO-OPHTHALMOLOGY documented in this encounter Plan of Treatment Upcoming Encounters Date Type Department Care Team (Late st Contact Info) Description 03/30/2024 9:15 EST Office Visit [facility] Ophthalmology - [address] [address] Uday Reece MD [address] [place] [address], [address] [place] [address] 04/15/2024 12:30 EST Office Visit [facility] Ophthalmology - Main [place] [address] [place], [place] [phone] Barby Guzman MD 111 [facility], [address] [place] [address] Pending Results Name Type Priority [...] eye Ishihara 0/14 no vision Care Teams Odd Piece Checker Relationship Specialty Start Date End Date Unknown, Provider, PCP - General 03/04/20 12/02/23 documented as of this encounter
[2024-03-12 11:27] LABS: Abs Immature Grans 0.01 10^3/uL (0.0-0.06); Absolute Basophil Count 0.02 10^3/uL (0.0-0.2); Absolute Eosinophil Count 0.14 10^3/uL (0.0-0.7); Absolute Lymphocyte Count 0.78 10^3/uL (1.2-3.4); Absolute Monocyte Count 0.43 10^3/uL (0.1-0.8); Absolute Neutrophil Count 2.72 10^3/uL (1.2-6.7); Basophils % 0.5 %; Eosinophils % 3.4 %; HCT 31.4 % (40.0-50.0); HGB 10.2 g/dL (13.5-17.5); Immature Grans % 0.2 %; MCH 30.3 pg (27.0-33.0); MCHC 32.5 % (32.0-36.0); MCV 93 fL (80-95); MPV 9.9 fL (8.0-11.0); Monocytes % 10.5 %; Neutrophils % 66.4 %; Platelet Count 183 10^3/uL (130-400); RBC 3.37 10^6/uL (4.36-5.78); RDW 14.6 % (11.8-14.1); RDW-SD 50.5 fL
[2024-03-12 11:40] LABS: ALT 44 U/L (16-63); AST 31 U/L (15-37); Alkaline Phosphatase 125 U/L (46-116); Anion Gap 3.8 mmol/L (3-11); BUN 17 mg/dL (7-18); Bilirubin, Total 1.52 mg/dL (0.2-1.0); CO2 34.2 mmol/L (21.0-32.0); CREATININE 0.8 mg/dL (0.70-1.30); Calcium 8.4 mg/dL (8.5-10.1); Chloride 106 mmol/L (98-107); Estimated GFR 91.72 (mL/min/1.73m2); Glucose 250 mg/dL (74-106); Potassium 3.4 mmol/L (3.5-5.1); Sodium 144 mmol/L (136-145); Total Protein 6.1 g/dL (6.4-8.2)
== END 2024-03-12 10:45 | disposition home or self-care (01) ==
LOC: LBN 10:44
PROVIDERS: PCP Family Medicine; Visit Provider Internal Medicine Hematology & Oncology
DX: C25.0 Malignant neoplasm of head of pancreas (principal)
CPT/HCPCS: 80053; 85025; 86301

== ENCOUNTER 2024-03-26 10:28 | Outpatient (REF) | payer MEDICARE, SELFPAY ==
--- OUTSIDE RECORDS SUMMARY | 2024-03-26 10:30 | XMS_ITS | Encounter Summary ---
[place] [address] Care Team Providers Care Debridging Machine Operator Name Role Phone Tristen Hunter MD Primary Care Provider [phone] Encounter Details Date Type Department Care Team (Latest Contact Info) Description 02/07/2024 12:30 PM EST Clinical [place] [phone] Encounter for staple removal Social History Tobacco Use Types Packs/Day Years Used Date Smoking Tobacco: Former Cigarettes 4 30 1 963 - 1992 Smokeless Tobacco: Never Alcohol Use Standard Drinks/Week Comments Yes 7 (1 standard drink = 0.6 oz pur e alcohol) [facility] Utilities Answer Date Recorded In the past 12 months has [place], gas, oil, or water Learn with [employer] threatened to shut off services in your [...] any time in the past 12 m [facility], were you homeless or living [...] Care Team (Late st Contact Info) Description 04/09/2024 9:30 AM EST Office Visit Hematology/Oncology at [address] [phone] Cl Hess MD [facility] [place] [address] Yessi Renee APRN [address] [place] [address] DR HEMATOLOGY AND ONCOLOGY [place], [place] [phone] 04/09/2024 10:00 AM EST Infusion Hematology Oncology at [address] [phone] 04/23/2024 9:30 AM EST Office Visit Hematology/Oncology at [address] [phone] Cl Hess MD [facility] [place] [address] Yessi Renee APRN [address] [place] [address] DR HEMATOLOGY AND ONCOLOGY [place], [place] [phone] 04/23/2024 10:00 AM EST Infusion Hematology Oncology at [address] [phone] 05/18/2024 4:30 PM EDT TH Visit (TeleHealth) [place] [address] Malachi Rothman MD [facility] [place] [address] 09/24/2024 9:00 AM EDT Office Visit Radiation Oncology at [address] [phone] Ping Moore PA [facility] [place] [address] documented as of this encounter Visit Diagnoses Diagnosis Encounter for staple removal Encounter for removal of sutures documented in this encounter Care Teams Debridging Machine Operator Relationship Specialty Start Date End Date Tristen Hutner MD [address] [place] [address] [place] [address] PCP - General Family Medicine 07/04/23 documented as of this encounter
--- OUTSIDE RECORDS SUMMARY | 2024-03-26 10:30 | XMS_ITS | Encounter Summary ---
Author Organization [facility] Address [facility] [place] [address] Care Team Providers Care Apricot Packer Name Role Phone Tristen Hunter MD Primary Care Provider [phone] Reason for Visit * Treatment/Therapy Plan Authorization (Routine) - Authorized Specialty Diagnoses / Procedures Referred By Marques t Referred To Contact Diagnoses Malignant neoplasm of prostate Cl Hess MD [facility] [place] [address] St Hem Onc Infusion [address] [place] [phone] Referral ID Status Reason Start Date Expiration Date V isits Requested Visits Authorized [id number] Authorized 07/11/2023 07/10/2024 99 107 Encounter Details Date Type Department Care Team (Late st Contact Info) Description 03/26/2024 9:30 AM EST Infusion Hematology Oncology at [address] [phone] Arrived Social History Tobacco Use Types Packs/Day [...] a long term (including now)? No 06/04/2023 Housing Stability Vital [...] were you homeless or living in a long term (including now)? No 01/24/2024 IPV Inpatient Questions [...] AM EST Office Visit Hematology/Oncology at [address] [phone] Cl Hess MD [facility] [place] [place] [address] [address] HEMATOLOGY AND ONCOLOGY [place], [place] [id number] 04/09/2024 10:00 AM EST Infusion Hematology Oncology at [address] [phone] 04/23/2024 9:30 AM EST Office Visit Hematology/Oncology at [address] [phone] Cl Hess MD [facility] [place] [address] [place] [address] 04/23/2024 10:00 AM EST Infusion Hematology Oncology at [address] [phone] 05/18/2024 4:30 PM EDT TH Visit (TeleHealth) [place] [address] Malachi Rothman MD [facility] [place] [address] 09/24/2024 9:00 AM EDT Office Visit Radiation Oncology at [address] [phone] Ping Moore PA [facility] [place] [address] documented as of this encounter Visit Diagnoses Not on filedocumented in this encounter Care Teams Apricot Packer Relationship Specialty Start Date End Date Tristen Hunter MD [address] [place] [address] [place] [address] PCP - General Family Medicine 07/04/23 documented as of this encounter
--- OUTSIDE RECORDS SUMMARY | 2024-03-26 10:30 | XMS_ITS ---
Author [place] [address] Care Team Providers Care Rabbler Name Role Phone Tristen Hunter MD Primary Care Provider [phone] Active Problems Problem Noted Date Diagnosed Date [...] Medications Current Day (Day 1 , Cycle 10 - Planned for 03/26/2024) Next Day (Day 3, Cycle 10 - Planned for 03/28/2024) fluorouraciL (AdruciL) in sodium chloride 0.9% 138 [...] treatments are documented for this patient in [facility]. Treatments may have been administered in another system.
--- OUTSIDE RECORDS SUMMARY | 2024-03-26 10:30 | XMS_ITS | Encounter Summary ---
[place] [address] Care Team Providers Care Structural Steel Shop Supervisor Name Role Phone Tristen Hunter MD Primary Care Provider [phone] Reason for Visit * Reason Onset Date Comments Other 03/16/2024 Encounter Details Date Type Department Care Team (Late st Contact Info) Description 03/16/2024 Telephone Hematology/Oncology at [address] [phone] Jey Crouch RN Other Social History Tobacco Use Types Packs/Day Years Used Date Smoking Tobacco: Former Cigarettes 4 30 1 963 - 1992 Smokeless Tobacco: Never Alcohol Use Standard Drinks/Week Comments Yes 7 (1 standard drink = 0.6 oz pur e alcohol) [facility] Utilities Answer Date Recorded In the [...] in a long-term (including now)? No 06/04/2023 Housing Stability Vital Sign Answer Meek e Recorded In the last 12 months, was t here a time when you were not able to pay the mortgage or rent on time? No 01/24/2024 In the past 12 months, how m any times have you moved where you were living? 0 01/24/2024 At any time in the past 12 m [facility], were you homeless or living in a long-term (including now)? No 01/24/2024 DH IPV Inpatient [...] encounter Miscellaneous Notes * Telephone Encounter - Jey Crouch RN - 03/16/2024 10:08 AM EST Spoke with Brenda GRIFFITHS who updated us on some changes with his current medications. These changes arereflected in current medications. Asking for erythromycin ointment refill. Advised to call PCP for that as I cannot see where we had filled this for pt. She will reach out to PCP for this. ----- Message from Olena Shahid sent at 03/16/2024 9:32 AM EST ----- Leonor MEYER nurse called and said that he would be receiving services for his pump disconnects. She siad that there is also questions on his medications. Please call her back at [phone] Thank you Olena documented in this encounter Plan of Treatment Upcoming Encounters Date Type Department Care Team (Late st Contact Info) Description 04/09/2024 9:30 AM EST Office Visit Hematology/Oncology at [address] [phone] Cl Hess MD [facility] [place] [address] Yessi Renee, [address] HEMATOLOGY [place] [address] 04/09/2024 10:00 AM EST Infusion Hematology Oncology at [address] [phone] 04/23/2024 9:30 AM EST Office Visit Hematology/Oncology at [address] [phone] Cl Hess MD [facility] [place] [address] [address] HEMATOLOGY AND ONCOLOGY [place], [place] [address] 04/23/2024 10:00 AM EST Infusion Hematology Oncology at [address] [phone] 05/18/2024 4:30 PM EDT TH Visit (TeleHealth) [place] [address] Malachi Rothman MD [facility] [place] [address] 09/24/2024 9:00 AM EDT Office Visit Radiation Oncology at [address] [phone] Ping Moore PA [facility] DR [place] [address] documented as of this encounter Visit Diagnoses Not on filedocumented in this encounter Care Teams Structural Steel Shop Supervisor Relationship Specialty Start Date End Date Tristen Hunter MD [address] [place] [address] [place] [address] PCP - General Family Medicine 07/04/23 documented as of this encounter
--- OUTSIDE RECORDS SUMMARY | 2024-03-26 10:30 | XMS_ITS | Encounter Summary ---
Author Organization [facility] Address [facility] [place] [address] Care Team Providers Care Banquet Server Name Role Phone Tristen Hunter MD Primary Care Provider [phone] Reason for Referral * Home Health Care (Routine) - Authorized Specialty Diagnoses / Procedures Referred By Marques livingston Referred To Contact Diagnoses Malignant neoplasm of head of pancreas Cl Hess MD [facility] [place] [address] Referral ID Status Reason Start Date Expiration Date Visits Requested Visits Authorized [id number] Authorized Consult, Test & Treat 03/12/2024 09/08/2024 999 999 Encounter Details Date Type Department Care Team (Late st Contact Info) Description 03/12/2024 9:30 AM EST Office Visit Hematology/Oncology at [address] [phone] Cl Hess MD [facility] [place] [address] Yessi Renee, [place] [address] [place] [address] DR [place] [address] Malignant neoplasm of head of pancreas Social History Tobacco Use Types Packs/Day Years Used Date Smoking Tobacco: Former Cigarettes 4 30 1 1992 Smokeless Tobacco: Never Alcohol Use Standard Drinks/Week Comments Yes 7 (1 standard drink = 0.6 oz pur e alcohol) [facility] Utilities Answer Date Recorded In [...] any time in the past 12 m [facility], were you homeless or [...] 9:32 AM EST documented in this encounter Progress Notes * Yessi Renee APRN - 03/12/2024 9:30 AM EST Subjective Patient ID: Wero Sadler is 74 y.o. Problem List: Pancreatic cancer, [...] periduodenal or perilesional adenopathy was appreciated Impression: [id number] pancreas head mass lesion with biliary and [...] disease/disease progression on interim staging evaluation. E. 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 Gilbert's disease HPI Wero Sadler is seen for evaluation and management of pancreatic cancer. The history is summarized above. Mauri is doing well, blood sugars have been relatively well controlled. Denies any pain, no fevers or signs of illness. 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 Appetite is not what it previously was, he does not think he's eating enough, however his weight isrelativley stable since hospital discharge. Did have one episode of vomiting a few days ago, thinksit was food related. Drinking between 40-60 ounces per day. Still using Creon, 1 with breakfast and lunch, 2 with dinner, 1 with a heavy snack, which is muchless than prior. Intermittent diarrhea. 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 No respiratory distress. Abdominal: General: Abdomen is flat. There is no distension. Musculoskeletal: General: No swelling. Skin: General: Skin is warm and dry. Findings: No rash. Neurological: General: No focal deficit present. Mental Status: He is alert. Coordination: Coordination normal. Psychiatric: Mood and Affect: Mood normal. BP 106/47 (Patient Position: Sitting) Pulse 70 Temp 36.1 ??C (96.9 ??F) (Temporal) Resp 18 Ht 175.3 cm (5' 9.02) Wt 85.7 kg (189 lb) SpO2 100% BMI 27.90 kg/m?? Labs: WBC/ANC 4.03/2719, Hgb/Hct 10.2/31.4, Plts 183,000, BUN/Cr 12/0.84, t bili 1.52, glucose 250, albumin 3.0, t protein 6.1, Ca 8.4 (corrected 9.0), alk phos 125,K 3.4, CO2 34.2, remainder of CMP otherwise unremarkable. CA 19-9 03/02/24 14 02/20/24 13 12/12/23 60 11/28/23 91 11/19/23 [...] was recommended but not performed. While in [facility], he presented with chest pain [...] 06/07/23. Pathology was requested for review at [facility] and we also requested that images be sent. We discussed a plan to review his case and images at our GI Tumor Board for assessment of resectablity and for a referral to Dr. Balbuena or Dr. Espinosa. His case was reviewed at [facility] on 06/18/23. The Ct from 05/22/23 was [...] is also being followed by our clinical county agent, Lupe Velasquez. On 07/12/23 he began neoadjuvant [...] with Dr. Rothman in Radiation Oncology at [facility] on 10/25/23. He completed SBRT on 11/27/23 and tolerated this as well also. Wero underwent a Whipple procedure on 01/23/24, path shows disease response, and unfortunately a positive margin. The plan is to complete 4 cycles of adjuvant Folfirinox, starting today. Labs and toxicities assessed and acceptable for ongoing treatment. RTC in 2 weeks. documented in this encounter Plan of Treatment Upcoming Encounters Date Type Department Care Team (Late st Contact Info) Description 04/09/2024 9:30 AM EST Office Visit Hematology/Oncology at [address] [phone] Cl Hess MD [facility] [place] [address] [address] HEMATOLOGY AND ONCOLOGY [place], [place] [id number] 04/09/2024 10:00 AM EST Infusion Hematology Oncology at [address] [phone] 04/23/2024 9:30 AM EST Office Visit Hematology/Oncology at [address] [phone] Cl Hess MD [facility] [place] [address] [address] HEMATOLOGY AND ONCOLOGY [place], [place] [phone] 04/23/2024 10:00 AM EST Infusion Hematology Oncology at [address] [phone] 05/18/2024 4:30 PM EDT TH Visit (TeleHealth) [place] [address] Malachi Rothman MD [facility] [place] [address] 09/24/2024 9:00 AM EDT Office Visit Radiation Oncology at [address] [phone] Ping Moore PA [facility] [place] [address] Scheduled Referrals Name Type Priority Associated Diagnoses Orde r Schedule Referral to Home Health Outpatient Referral Routine Malignant neoplasm of head of pancreas Ordered: 03/12/2024 documented as of this encounter Visit Diagnoses Diagnosis Malignant neoplasm of head of pancreas documented in this encounter Care Teams Banquet Server Relationship Specialty Start Date End Date Tristen Hunter MD [address] [place] [address] [place] [address] PCP - General Family Medicine 07/04/23 documented as of this encounter
--- OUTSIDE RECORDS SUMMARY | 2024-03-26 10:30 | XMS_ITS | Encounter Summary ---
[place] [address] Care Team Providers Care Harbor Police Launch Commander Name Role Phone Tristen Hunter MD Primary Care Provider [phone] Encounter Details Date Type Department Care Team (Late st Contact Info) Description 02/25/2024 Telephone Hematology/Oncology at [address] [phone] Jackie Driver Social History Tobacco Use Types Packs/Day Years Used Date Smoking Tobacco: Former Cigarettes 4 30 1 963 - 1992 Smokeless Tobacco: Never Alcohol Use Standard Drinks/Week Comments Yes 7 (1 standard drink = 0.6 oz pur e alcohol) [facility] Utilities Answer Date Recorded In the past 12 months has [employer], gas, oil, or water company threatened [...] AM EST Office Visit Hematology/Oncology at [address] [phone] Cl Hess MD [facility] [place] [address] [address] HEMATOLOGY [place] [address] 04/09/2024 10:00 AM EST Infusion Hematology Oncology at [address] [phone] 04/23/2024 9:30 AM EST Office Visit Hematology/Oncology at [address] [phone] Cl Hess MD [facility] [place] [address] [address] HEMATOLOGY AND ONCOLOGY [place], [place] [address] 04/23/2024 10:00 AM EST Infusion Hematology Oncology at [address] [phone] 05/18/2024 4:30 PM EDT TH Visit (TeleHealth) [place] [address] Malachi Rothman MD [facility] [address] 09/24/2024 9:00 AM EDT Office Visit Radiation Oncology at [address] [phone] Ping Moore PA [facility] [place] [address] documented as of this encounter Visit Diagnoses Not on filedocumented in this encounter Care Teams [employer] Launch Commander Relationship Specialty Start Date End Date Tristen Hunter MD [address] [place] [address] [place] [address] PCP - General Family Medicine 07/04/23 documented as of this encounter
--- OUTSIDE RECORDS SUMMARY | 2024-03-26 10:30 | XMS_ITS | Clinical Summary ---
[place] [address] Care Team Providers Care Customer Service And Sales Consultant Name Role Phone Tristen Hunter MD Primary Care Provider [phone] Allergies Active Allergy Reactions Criticality Noted Date [...] dye used during vascular procedure at [facility] in [place]: shaking Has tolerated MRI [...] 07/21/2021 Active timoloL (Timoptic) 0.5 % Drops 1 drop 2 times daily. 08/29/2021 Active erythromycin (Romycin) 5 mg/gram [...] for SBP <110, Hr <60) 11/18/2021 Active lisinopriL (Zestril) 40 mg Tablet Take 1 tablet by mouth daily. Lisinopril (hold for SBP <130) 11/18/2021 Active omega 8-toy-fhb-fish oil 250-350-1,000 mg Capsule Take 1,000 mg by mouth. 07/18/2021 Active omeprazole (PriLOSEC) [address] capsule Take 20 mg by mouth as needed. 05/20/2023 Active Insulin Tresiba FlexTouch U-100 100 [...] mouth nightly. 30 capsule 11 08/20/2023 Active ojzdam-cijlzmno-x porfiriolase (Creon 24) 24,000-76,000 -120,[address] capsule Take 3 per meal three times daily and 2 per snack three times daily (15 capsules/day) 450 capsule 11 10/25/2023 Active Additional Information Patient taking differently: Taking 4-6 tablets daily., Reported on 03/12/2024 multivitamin (THERAGRAN) Tablet Take 1 tablet by mouth daily. Active Active Problems Problem Noted Date Diagnosed [...] Encounters Date Type Department Care Team Description 03/26/2024 9:30 AM EST Infusion Hematology Oncology at [address] [phone] Arrived 03/26/2024 9:30 AM EST Office Visit Hematology/Oncolo gy at [address] [phone] Arrived 03/26/2024 9:30 AM EST Office Visit Hematology/Oncolo gy at [address] [phone] Yessi Renee APRN Arrived 03/26/2024 9:00 AM EST Office Visit Radiation Oncology at [address] [phone] Ping Moore PA Malignant neoplasm of prostate (Primary Dx); S/P radiotherapy 03/26/2024 Travel 03/20/2024 Telephone Radiation Oncology at [address] [phone] Olena Shaw 03/20/2024 Telephone Radiation Oncology at [address] [phone] Elisha Zamarripa RN Follow-up (Pt needs labs prior to telehealth visit 03/24/24) 03/16/2024 Telephone Hematology/Oncolo gy at [address] [phone] Jey Crouch RN Other 03/12/2024 10:30 AM EST Clinical Support Hematology/Oncolo gy at [address] [phone] Malignant neoplasm of head of pancreas 03/12/2024 10:00 AM EST Infusion Hematology Oncology at [address] [phone] Malignant neoplasm of prostate; Hypokalemia 03/12/2024 9:30 AM EST Office Visit Hematology/Oncolo gy at [address] [phone] Cl Hess MD LaRoza, Stephanie A, GLOBAL TECHNICAL WRITER Malignant neoplasm of head of pancreas 03/12/2024 Travel 02/27/2024 10:00 AM EST Telephone Hematology/Oncolo gy at [address] [phone] Lupe Velasquez, RD 02/25/2024 1:00 PM EST TH Visit (TeleHealth) Hematology/Oncolo gy at [address] [phone] Yessi Renee, GLOBAL TECHNICAL WRITER Malignant neoplasm of head of pancreas 02/25/2024 Telephone Hematology/Oncolo gy at [address] [phone] Jackie Driver 02/19/2024 Telephone Hematology/Oncolo gy at [address] [phone] Lupe Velasquez, RD 02/18/2024 1:00 PM EST Office [place] [phone] Charu Balbuena MD Exocrine pancreatic insufficiency 02/07/2024 12:30 PM EST Clinical [place] [phone] Encounter for staple removal 02/07/2024 Travel 02/04/2024 10:00 AM EST Telephone Hematology/Oncolo gy at [address] [phone] Lupe Velasquez, RD 02/04/2024 Telephone Hematology/Oncolo gy at [address] [phone] Tammy Hooks RN Follow-up 02/03/2024 Telephone General Surgery at [place] [phone] Chen Mcdonald, RN 01/24/2024 11:59 PM EST Anesthesia Event Intermediate Special Care Unit [place] [phone] Madan Lou RN 01/23/2024 7:52 AM EST Anesthesia Event [place] [phone] Shaheen Cody MD Jarnot, Kerry M, RN 01/23/2024 7:30 AM EST - 01/23/2024 4:55 PM EST Surgery Main Operating Room [place] [phone] Charu Balbuena MD @[email or web address] PROCEDURE (WRVU 52.84) 01/23/2024 6:12 AM EST - 02/01/2024 12:51 PM EST Hospital Encounter Surgical Unit Level 4 Wing D at [place] [phone] Charu Balbuena MD Malignant neoplasm of head of pancreas (Primary Dx); ASCVD (arteriosclerotic cardiovascular disease); Hx of CABG; Malignant neoplasm of pancreas, unspecified location of malignancy Discharge Disposition: Home 01/14/2024 4:30 PM EST TH Visit (TeleHealth) [place] [phone] Malachi Rothman MD Malignant neoplasm of prostate 01/13/2024 Telephone General Surgery at [place] [phone] Tracie Rodriguez, RN 01/08/2024 Specialty [place] [phone] Slim De La Cruz, [facility] Refill Coordination - Manual (lipase/protease/amyl ase) for Enzyme 12/31/2023 9:00 AM EDT TH Visit (TeleHealth) Radiation Oncology at [address] [phone] Ping Moore PA Malignant neoplasm of prostate (Primary Dx); S/P radiotherapy from Last 3 Months Immunizations Name Administration Dates Next Due Covid-19 Monovalent (Moderna Spikevax) 12yrs+ ([id number]) 01/01/2021,06/21/2020,05/20/2020 Influenza (Fluzone HD) Trivalent High Dose [...] drink = 0.6 oz pur e alcohol) [facility] Utilities Answer Date Recorded In the past 12 months has th e electric, gas, oil, or water [employer] threatened to shut off services in your [...] any time in the past 12 m [facility], were you homeless or [...] Sign Reading Time Taken Comments Blood Pressure 108/52 03/26/2024 8:37 AM EST Pulse 73 03/26/2024 8:37 AM EST Temperature 36.5 ??C (97.7 ??F) 03/26/2024 8:37 AM ES T Respiratory Rate 17 03/26/2024 8:37 AM EST Oxygen Saturation 100% 03/26/2024 8:37 AM EST Inhaled Oxygen Concentration - - Weight 85.2 kg (187 lb 13.3 oz) 03/26/2024 8:37 AM EST Height 175.3 cm (5' 9.02) 03/12/2024 9:32 AM ES T Body Mass Index 27.73 03/12/2024 9:32 AM EST Plan of Treatment Upcoming Encounters Date Type Department Care Team (Late st Contact Info) Description 04/09/2024 9:30 AM EST Office Visit Hematology/Oncology at [address] [phone] Cl Hess MD [facility] [place] [address] Yessi Renee, [address] HEMATOLOGY AND ONCOLOGY [place], [place] [phone] 04/09/2024 10:00 AM EST Infusion Hematology Oncology at [address] [phone] 04/23/2024 9:30 AM EST Office Visit Hematology/Oncology at [address] [phone] Cl Hess MD [facility] [place] [address] HEMATOLOGY [place] [address] 04/23/2024 10:00 AM EST Infusion Hematology Oncology at [address] [phone] 05/18/2024 4:30 PM EDT TH Visit (TeleHealth) [place] [phone] Malachi Rothman MD [facility] [place] [address] 09/24/2024 9:00 AM EDT Office Visit Radiation Oncology at [address] [phone] Ping Moore PA [facility] DR [place]AT[place] [address] Health Maintenance Due Date Last Done Comments DM Opthalmology Exam 01/25/1958 DM Urine Microalbumin yearly 01/25/1958 Hepatitis C Screening 01/25/1966 Pneumoccocal Vaccine: 50+ (1 of 2 - PCV) 01/25/1967 Zoster [...] Discontinued 07/18/2021 Medical Devices Implanted Type Area Violin Maker Hand Device Identifier Shelf Expiration Date Model / Serial / Lot Shell Acet Hip 60mm Por Ctd Multi Hole Ti Florence Gription ([id number]) (Autoreq) - [id number] Implanted:Qty: 1 on 10/10/2020 by Ismael Wu MD at [facility] IMPLANTS Left: Hip DAE & PolyActiva - DAE DARIAN [id number] 07/01/2030 1217-32- 060 / / [id number] Liner Acet Hip 19v04pw Stnd Poly Florence Altrx ([id number]) (Autoreq) - [id number] Implanted:Qty: 1 on 10/10/2020 by Ismael Wu MD at [facility] IMPLANTS Left: Hip DAE & PolyActiva - DAE DARIAN [id number] 08/31/2025 1221-36- 060 / / [id number] Head Femoral Hip 36mm +1.5mm Offset 01/14 Taper Ceramic ([id number]) (Autoreq) - [id number] Implanted:Qty: 1 on 10/10/2020 by Ismael Wu MD at [facility] IMPLANTS Left: Hip DAE & DAE [employer] - DAE DARIAN 07/01/2025 1365-36- 310 / / [id number] Stem Femoral Hip Sz 7 Prox 02/14 Taper Por Cllr High Ofst Ti ([id number]) (Autoreq) - [id number] Implanted:Qty: 1 on 10/10/2020 by Ismael Wu MD at [facility] IMPLANTS Left: Hip DAE & DAE HE[employer] - DAE DARIAN 08/31/2030 1010-12- 070 / / [id number] System Stent Enroute 02t31iv Rx Nit ([id number]) (Autoreq) - [id number] Implanted:Qty: 1 on 07/14/2021 by Basim Barr MD at [facility] IMPLANTS Right: [facility] [id number] 08/02/2023 -1040- / / [id number] Stem Femoral Hip Sz 7 Prox 02/14 Taper Por Cllr High Ofst Ti (2710491) (Autoreq) - [id number] Implanted:Qty: 1 on 11/17/2021 by Ismael Wu MD at [facility] IMPLANTS Right: Hip DAE [employer] DAE [employer] - DAE DARIAN [id number] 09/01/2031 1010-12- 070 / / [id number] Head Femoral Hip 36mm +8.5mm Offset 02/14 Tpr Ceramic ([id number]) (Autoreq) - [id number] Implanted:Qty: 1 on 11/17/2021 by Ismael Wu MD at [facility] IMPLANTS Right: Hip DAE [employer] DAE [employer] - DAE DARIAN [id number] 07/01/2026 1365-36- 330 / / [id number] Shell Acet Hip 60mm Por Ctd Multi Hole Ti Florence Gription (8108207) (Autoreq) - [id number] Implanted:Qty: 1 on 11/17/2021 by Ismael Wu MD at [facility] IMPLANTS Right: Hip DAE [employer] DAE [employer] - DAE DARIAN [id number] 10/01/2030 1217-32- 060 / / [id number] Liner Acet Hip 68w82mi Stnd Poly Florence Altrx (8797558) (Autoreq) - [id number] Implanted:Qty: 1 on 11/17/2021 by Ismael Wu MD at [facility] IMPLANTS Right: Hip DAE & DAE [employer] - DAE DARIAN [id number] 11/01/2026 1221-36- 060 / / [id number] Screw Hip Acet 6.5x25mm Ft Canc Hex Drv Ti Florence (8954457) (Autoreq) - [id number] Implanted:Qty: 1 on 11/17/2021 by Ismael Wu MD at [facility] IMPLANTS Right: Hip DAE & PolyActiva - DAE DARIAN [id number] 10/02/2031 1217-25- 500 / / [id number] Screw Hip Acet 6.5x20mm Ft Canc Hex Drv Ti Florence (4148624) (Autoreq) - [id number] Implanted:Qty: 1 on 11/17/2021 by Ismael Wu MD at [facility] IMPLANTS Right: Hip DAE & PolyActiva - DAE DARIAN [id number] 06/02/2031 1217-- 500 / / [id number] Port Infusion 8fr Cath Power Lp Ct Plastic Dignity (8024113) - [id number] Implanted:Qty: 1 on 07/05/2023 by Charu Balbuena MD at [facility] IMPLANTS Right: Chest Wall [employer] - [employer] [place] [id number] 11/02/2027 [id number] N / / [id number] Graft Soft Tissue 0.8x8cm Square Bovine Xenosure (7060227) (Autoreq) - [id number] Implanted:Qty: 1 on 01/23/2024 by Charu Balbuena MD at [facility] IMPLANTS N/A: Pancreas [facility] 02/28/2029 E0.8P8 / 0000 / [id number] Staple Line Reinforcement 60mm Endo Straight (6974218) - [id number] Implanted:Qty: 4 on 01/23/2024 by Charu Balbuena MD at [facility] IMPLANTS N/A: Abdomen DAE & PolyActiva - DAE DARIAN 04/23/2025 [id number] / / [id number] Barrier Adhesion 5x6in Amdominal-Pelvic Bioresorbable ([id number]) - [id number] Implanted:Qty: 1 on 01/23/2024 by Charu Balbuena MD at [facility] IMPLANTS N/A: Abdomen [employer] - MINAYA HEA 11/09/2026 [id number] / / [id number] [place] Feeding Tube 5fr Implanted:Qty: 1 on 01/23/2024 by Charu Balbuena MD at [facility] Stent N/A: Pancreas 03/03/2027 [id number] / / [id number] Description:used as pancreat ic stent Procedures Procedure Name Priority Date/Time Associated Diagnosis Comments LAB SCAN 03/20/2024 12:00 AM EST LAB SCAN 03/20/2024 12:00 AM EST LAB SCAN 03/20/2024 12:00 AM EST LAB SCAN 03/20/2024 12:00 AM EST LAB SCAN 03/20/2024 12:00 AM EST LAB SCAN 03/20/2024 12:00 AM EST LAB SCAN 03/02/2024 12:00 AM EST LAB [...] 01/23/2024 8:51 AM EST TYPE AND SCREEN (MC/CGP/NATO) Routine 01/23/2024 8:51 AM EST BLOOD GAS ARTERIAL POC Routine 8:28 AM EST Omental Flap, Intra-Abdominal (71084) 01/23/2024 7:52 AM EST [facility] Unlisted Procedure Vascular Surgery (75708) 01/23/2024 7:52 AM EST [facility] Part Remv Panc, Prox+Remv Duod+Anast (91576) 01/23/2024 7:52 AM EST [facility] XR FLUORO NO RAD <1HR - OR USE Routine 01/23/2024 7:50 AM EST [id number] ONLY Routine 7:22 AM EST POC, GLUCOSE [...] EDT LAB SCAN 12/26/2023 12:00 AM EDT LIPID PANEL (REFLEX DIRECT LDL) Routine 07/18/2021 8:33 PM EDT from Last 3 Months or Most Recently Relevant to Health Maintenance Results * Scan Doc: Lab (03/20/2024 12:00 AM EST) Only the most recent of24 resultswithin the time period is included. Narrative 03/20/2024 12:00 AM EST Ordered by an unspecified provider. Scanning Provider MEDIA MGR SCAN EXT O RDR/RSLT * Transfuse RBC (02/01/2024 9:38 AM EST) Charu Balbuena MD NURSING TREATMENT ORDERABLES - BLOOD ADMIN * POC, GLUCOSE (02/01/2024 8:02 AM EST) Only the most recent of62 resultswithin the time period is included. Pathologist [facility] Glucometer, POC 189 65 - 199 mg/dL 02/01/2024 8:02 AM [facility] Comment:Supplemental ranges: <140 mg/dL before meals <180 mg/dL all other times of the day. Blood CAPILLARY BLOOD / Unknown 02/01/2024 8:02 AM EST 02/01/2024 8:03 AM EST Charu Balbuena MD POINT OF CARE TEST ORDERABLES [facility] [place] [address] * (ABNORMAL) CBC (with Diff) (02/01/2024 4:17 AM EST) Only the most recent of11 resultswithin the time period is included. [facility] White Blood Cell 6.27 4.00 - 9.50 x10(3)/mc L 02/01/2024 4:35 AM [facility] Red Blood Cell 2.98(L) 4.58 - 5.54 x10(6)/mc L 02/01/2024 4:35 AM [facility] Hemoglobin 9.2(L) 13.7 - 16.5 g/dL 02/01/2024 4:35 AM [facility] Hematocrit 27.5(L) 40.5 - 48.5 % 02/01/2024 4:35 AM [facility] Mean Cell Volume 92.3 82.9 - 93.1 fL 02/01/2024 4:35 AM [facility] Mean Cell Hemoglobin 30.9 27.5 - 32.1 pg 02/01/2024 4:35 AM [facility] Mean Cell Hemoglobin Concentration 33.5 32.0 - 35.7 g/dL 02/01/2024 4:35 AM [facility] Platelet 289 145 - 357 x10(3)/mc L 02/01/2024 4:35 AM [facility] Mean Platelet Volume 8.8 7.6 - 12.9 fL 02/01/2024 4:35 AM [facility] RDW Standard Deviation 48.6(H) 36.0 - 45.0 fL 02/01/2024 4:35 AM [facility] RDW coefficient of variation 14.5(H) 11.4 - 13.8 % 02/01/2024 4:35 AM [facility] NRBC% auto 0.0 % 02/01/2024 4:35 AM [facility] NRBC Absolute <0.01 <0.01 x10(3)/mc L 02/01/2024 4:35 AM [facility] Neutrophil % 73.4 % 02/01/2024 4:35 AM [facility] Neutrophil Absolute (ANC) - Automated 4.61 1.70 - 6.10 x10(3)/mc L 02/01/2024 4:35 AM [facility] Lymph % 11.2 % 02/01/2024 4:35 AM [facility] Lymph Absolute 0.70(L) 0.90 - 3.20 x10(3)/mc L 02/01/2024 4:35 AM [facility] Monocyte % 9.1 % 02/01/2024 4:35 AM [facility] Monocyte Absolute 0.57 0.30 - 0.90 x10(3)/mc L 02/01/2024 4:35 AM [facility] Eos % 4.8 % 02/01/2024 4:35 AM [facility] Eos Absolute 0.30 0.00 - 0.40 x10(3)/mc L 02/01/2024 4:35 AM EST [facility] Basophil % 0.2 % 02/01/2024 4:35 AM EST [facility] Baso Absolute <0.04 0.00 - 0.10 x10(3)/mc L 02/01/2024 4:35 AM EST [facility] Immature Gran % 1.3 % 4:35 AM EST [facility] Immature Gran Absolute 0.08(H) 0.00 - 0.04 x10(3)/mc L 02/01/2024 4:35 AM EST [facility] Blood VENOUS BLOOD SPECIMEN / Unknown Venipuncture / Unknown 02/01/2024 4:17 AM EST 02/01/2024 4:29 AM EST Charu Balbuena MD HEMATOLOGY ORDERAB LES [facility] [place] [address] * Phosphorus (02/01/2024 4:17 AM EST) Only the most recent of11 resultswithin the time period is included. Phosphorus 3.8 2.5 - 4.5 mg/dL 02/01/2024 4:58 AM EST [facility] Blood VENOUS BLOOD SPECIMEN / Unknown Venipuncture / Unknown 02/01/2024 4:17 AM EST 02/01/2024 4:28 AM EST Charu Balbuena MD CHEMISTRY ORDERABL ES [facility] [place] [address] * Magnesium (02/01/2024 4:17 AM EST) Only the most recent of11 resultswithin the time period is included. Magnesium 0.98 0.69 - 1.07 mMol/L 02/01/2024 4:58 AM [facility] Blood VENOUS BLOOD SPECIMEN / Unknown Venipuncture / Unknown 02/01/2024 4:17 AM EST 02/01/2024 4:28 AM EST Charu Balbuena MD CHEMISTRY ORDERABL ES [facility] [place] [address] * (ABNORMAL) Comprehensive metabolic panel (02/01/2024 4:17 AM EST) Only the most recent of10 resultswithin the time period is included. Glucose 151 65 - 199 mg/dL 02/01/2024 4:58 AM [facility] Comment:Glucose Concentratio n >=200 mg/dL plus symptoms is consistent with Diabetes Mellitus. Blood Urea Nitrogen 20 10 - 20 mg/dL 02/01/2024 4:58 AM [facility] Creatinine 0.71(L) 0.80 - 1.50 mg/dL 02/01/2024 4:58 AM [facility] Sodium 133(L) 135 - 145 mMol/L 02/01/2024 4:58 AM [facility] Potassium 4.3 3.5 - 5.0 mMol/L 02/01/2024 4:58 AM [facility] Chloride 98 98 - 107 mMol/L 02/01/2024 4:58 AM [facility] Carbon Dioxide 27 22 - 31 mMol/L 02/01/2024 4:58 AM [facility] Anion Gap 8 5 - 15 mMol/L 02/01/2024 4:58 AM [facility] Calcium 8.7 8.5 - 10.5 mg/dL 02/01/2024 4:58 AM [facility] Protein, Total 6.0(L) 6.1 - 8.0 g/dL 02/01/2024 4:58 AM [facility] Albumin 3.3 3.2 - 5.2 g/dL 02/01/2024 4:58 AM EST [facility] Aspartate Aminotransferase 28 <=39 unit/L 02/01/2024 4:58 AM EST [facility] Alanine Aminotransferase 39 0 - 55 unit/L 02/01/2024 4:58 AM EST [facility] Alkaline Phosphatase 151(H) 40 - 130 unit/L 02/01/2024 4:58 AM EST [facility] Bilirubin, Total 1.1 <=1.3 mg/dL 02/01/2024 4:58 AM EST [facility] Est Glomerular Filtration Rate - Male 95 mL/min/1. 73 m?? 02/01/2024 4:58 AM EST [facility] Comment: This patient's estimated GFR [...] EST Charu Balbuena MD CHEMISTRY ORDERABL ES [facility] [place] [address] * Prepare RBC (01/31/2024 11:07 PM EST) Only the most recent of3 resultswithin the time period is included. Status Information Transfused [facility] Product Identification RBC [facility] Unit Number [id number] [facility] Product Code [id number] [facility] Unit Blood Type OPOS [facility] Specimen Expiration Date [facility] Volulme 286 [facility] Issue Date / Time [id number] [facility] Blood 01/31/2024 8:1 0 AM EST Charu Balbuena MD BLOOD BANK PRODUCT ORDERABLES Performing Organization Address City/[facility]/ZIP Co de Phone Number [facility] [place] [address] * ABORH RECHECK (PATIENT HISTORY FOUND) (01/31/2024 8:21 AM EST) Only the most recent of3 resultswithin the time period is included. ABORH Recheck Progress Complete 01/31/2024 10:01 AM EST [facility] Blood VENOUS BLOOD SPECIMEN / Unknown Venipuncture / Unknown 01/31/2024 8:21 AM EST 01/31/2024 8:31 AM EST Charu Balbuena MD BLOOD BANK LAB ORD ERABLES Performing Organization Address City/[facility] Co de Phone Number [facility] [place] [address] * Type and screen ([facility]/CGP/NATO) (01/31/2024 8:21 AM EST) Only the most recent of3 resultswithin the time period is included. ABORH Type O POSITIVE 01/31/2024 9:20 AM EST [facility] PATIENT HISTORY Found 01/31/2024 9:20 AM EST [facility] Expires at [id number] on: 02-03-2024 01/31/2024 9:20 AM EST [facility] ANTIBODY SCREEN AUTOMATED Negative 01/31/2024 9:20 AM EST [facility] T&S only valid at [facility] 01/31/2024 9:20 AM EST [facility] Blood VENOUS BLOOD SPECIMEN / Unknown Venipuncture / Unknown 01/31/2024 8:21 AM EST 01/31/2024 8:31 AM EST Narrative [facility] - 01/31/2024 9:20 AM EST This Type and Screen result is only valid at the [facility] Charu Balbuena MD BLOOD BANK LAB ORD ERABLES [facility] [place] [address] * Scan Doc: Telemetry Strips (01/28/2024 10:50 PM EST) Only the most recent of12 resultswithin the time period is included. Narrative 01/28/2024 10:50 PM EST Ordered by an unspecified provider. Scanning Provider MEDIA MGR SCAN EXT O RDR/RSLT * (ABNORMAL) Hemogram (01/28/2024 8:52 PM EST) White Blood Cell 7.33 4.00 - 9.50 x10(3)/mc L 01/28/2024 9:06 PM [facility] Red Blood Cell 2.63(L) 4.58 - 5.54 x10(6)/mc L 01/28/2024 9:06 PM [facility] Hemoglobin 8.2(L) 13.7 - 16.5 g/dL 01/28/2024 9:06 PM [facility] Hematocrit 24.3(L) 40.5 - 48.5 % 01/28/2024 9:06 PM [facility] Mean Cell Volume 92.4 82.9 - 93.1 fL 01/28/2024 9:06 PM [facility] Mean Cell Hemoglobin 31.2 27.5 - 32.1 pg 01/28/2024 9:06 PM [facility] Mean Cell Hemoglobin Concentration 33.7 32.0 - 35.7 g/dL 01/28/2024 9:06 PM [facility] Platelet 175 145 - 357 x10(3)/mc L 01/28/2024 9:06 PM [facility] Mean Platelet Volume 8.9 7.6 - 12.9 fL 01/28/2024 9:06 PM [facility] RDW Standard Deviation 49.1(H) 36.0 - 45.0 fL 01/28/2024 9:06 PM EST [facility] RDW coefficient of variation 14.5(H) 11.4 - 13.8 % 01/28/2024 9:06 PM [facility] NRBC% auto 0.0 % 01/28/2024 9:06 PM [facility] NRBC Absolute <0.01 <0.01 x10(3)/mc L 01/28/2024 9:06 PM EST [facility] Blood VENOUS BLOOD SPECIMEN / Unknown Venipuncture / Unknown 01/28/2024 8:52 PM EST 01/28/2024 9:02 PM EST Charu Balbuena MD HEMATOLOGY ORDERAB LES Performing Organization Address City/[facility]/ZIP Co de Phone Number [facility] [place] [address] * (ABNORMAL) Amylase (01/28/2024 3:39 AM EST) Only the most recent of5 resultswithin the time period is included. Amylase 9(L) 28 - 100 unit/L 01/28/2024 4:13 AM EST [facility] Blood VENOUS BLOOD SPECIMEN / Unknown Venipuncture / Unknown 01/28/2024 3:39 AM EST 01/28/2024 3:43 AM EST Charu Balbuena MD CHEMISTRY ORDERABL ES [facility] [place] [address] * Troponin-T, High Sensitivity 1 Hour (01/27/2024 8:24 PM EST) Troponin-T, High Sensitivity 17 <=22 ng/L 01/27/2024 9:01 PM EST [facility] Comment: This patient's troponin T [...] troponin value can be found in the [facility] Test Catalog Troponin - https://[email or web address].org/[email or web address] Reference: Fourth [place] Definition of Myocardial Infarction. Journal of the [place] [employer] 2018;72:0429-9039 Troponin-T, HS 1 hr delta 1 ng/L 01/27/2024 9:01 PM EST [facility] Comment:The 1 hour Troponin T delta value is the absolute difference between the Troponin T concentrations of the initial and subsequent sample collected between 45 - 120 minutes following the initial collection. Blood VENOUS BLOOD SPECIMEN / Unknown Venipuncture / Unknown 01/27/2024 8:24 PM EST 01/27/2024 8:31 PM EST Charu Balbuena MD CHEMISTRY ORDERABL ES [facility] [place] [address] * Troponin-T, High Sensitivity (01/27/2024 7:13 PM EST) Troponin-T, High Sensitivity Initial 18 <=22 ng/L 01/27/2024 7:57 PM EST [facility] Comment: This patient's troponin T [...] troponin value can be found in the [facility] Test Catalog Troponin - [email or web address] [email or web address] Exchange.testcatalog.org/catalogs/565/files/73660 Reference: Fourth [place] Definition of Myocardial Infarction. Journal of the [place] College [employer] Cardiology 2018;72:1229-7689 Blood VENOUS BLOOD SPECIMEN / Unknown Venipuncture / Unknown 01/27/2024 7:13 PM EST 01/27/2024 7:16 PM EST Charu Balbuena MD CHEMISTRY ORDERABL ES [facility] [place] [address] * (ABNORMAL) Basic Metabolic Panel (01/27/2024 7:13 PM EST) Glucose 202(H) 65 - 199 mg/dL 01/27/2024 7:57 PM EST [facility] Comment:Glucose Concentratio n >=200 mg/dL plus symptoms is consistent with Diabetes Mellitus. Blood Urea Nitrogen 9(L) 10 - 20 mg/dL 01/27/2024 7:57 PM EST [facility] Creatinine 0.50(L) 0.80 - 1.50 mg/dL 01/27/2024 7:57 PM EST [facility] Sodium 135 135 - 145 mMol/L 01/27/2024 7:57 PM EST [facility] Potassium 3.6 3.5 - 5.0 mMol/L 01/27/2024 7:57 PM [facility] Chloride 100 98 - 107 mMol/L 01/27/2024 7:57 PM [facility] Carbon Dioxide 30 22 - 31 mMol/L 01/27/2024 7:57 PM [facility] Anion Gap 5 5 - 15 mMol/L 01/27/2024 7:57 PM [facility] Calcium 8.1(L) 8.5 - 10.5 mg/dL 01/27/2024 7:57 PM [facility] Est Glomerular Filtration Rate - Male 106 mL/min/1. 73 m?? 01/27/2024 7:57 PM [facility] Comment: This patient's estimated GFR [...] EST Charu Balbuena MD CHEMISTRY ORDERABL ES [facility] [place] [address] * EKG 12 Lead (01/27/2024 6:57 PM EST) Only the most recent of2 resultswithin the time period is included. Ventricular rate 89 BPM MUSE SYSTEM Atrial Rate 89 BPM MUSE SYSTEM P-R Interval 168 ms MUSE SYSTEM QRS Duration 112 ms MUSE SYSTEM Q-T Interval 376 ms MUSE SYSTEM QTC Calculated (Bezet) 457 ms MUSE SYSTEM Calculated P [place] 43 degrees MUSE SYSTEM Calculated R [place] -17 degrees MUSE SYSTEM Calculated T [place] 11 degrees MUSE SYSTEM INTERPRETATION Sinus rhythm with Premature supraventricular complexes Right bundle branch block Abnormal ECG When compared with ECG of 24-JAN-2024 21:38, Premature supraventricular complexes are now Present Right bundle branch block is now Present Confirmed by MD Tej, Dionisio ([id number]) on 01/28/2024 1:19:34 PM MUSE SYSTEM 01/27/2024 6:57 PM EST 01/28/2024 1:19 PM EST Charu Balbuena MD ECG ORDERABLES MUSE SYSTEM * Amylase Level Body Fluid (01/27/2024 3:16 PM EST) Only the most recent of4 resultswithin the time period is included. Amylase, Fluid <3 unit/L 01/27/2024 4:17 PM [facility] Comment: Reference intervals are unavailable for this test in body fluids. Comparison of this result with the concentration in blood serum or plasma is recommended. This test has not been cleared by the [place] FDA. Performance characteristics of this test for the analysis of body fluids were determined by [facility] in accordance with CLIA requirements. This [...] analysis of body fluids were determined by [facility] in accordance with CLIA requirements. This laboratory is qualified under CLIA to perform high-complexity testing. Body Fluid Source Pietro Page 01/27/2024 4:17 PM [facility] Body Fluid PIETRO - PAGE DRAIN / Unknown Non Blood Collection / Unknown 01/27/2024 3:16 PM EST 01/27/2024 3:27 PM EST Charu Balbuena MD BODY FLUIDS AND ST OOLS ORDERABLES [facility] [place] [address] * Triglyceride Level Body Fluid (01/27/2024 8:27 AM EST) Triglyceride, Fluid 48 mg/dL 01/26 9:29 AM EST [facility] Comment:Reference intervals are unavailable for this test in body fluids. Comparison of this result with the concentration in blood serum or plasma is recommended. This test has not been cleared by the [place] FDA. Performance characteristics of this test for the analysis of body fluids were determined by [facility] in accordance with CLIA requirements. This laboratory is qualified under CLIA to perform high-complexity testing. Body Fluid Source Pietro Page 01/27/2024 9:29 AM EST [facility] Body Fluid PIETRO - PAGE DRAIN / Unknown Non Blood Collection / Unknown 01/27/2024 8:27 AM EST 01/27/2024 8:45 AM EST Charu Balbuena MD BODY FLUIDS AND ST OOLS ORDERABLES Performing Organization Address [facility]/ZIP Co de Phone Number [facility] [place] [address] * CT Abdomen & Pelvis wwo Contrast (GI BLEED) (01/27/2024 3:55 AM EST) WORKSTATION ID [id number] [facility] Anatomical Region Laterality Modality Abdomen, Pelvis Computed [...] have questions please contact the health career professional that requested your imaging first. ? Electronically signed by: Juan Montiel MD, [facility] ([phone]), at 01/27/2024 4:43 AM Narrative 01/27/2024 4:43 AM EST EXAMINATION: CT [...] who have questions please contactthe health career professional that requested your imaging first. Electronically signed by: Juan Montiel MD, [facility]([phone]), at 01/27/2024 4:43 AM Charu Balbuena MD IMG CT ORDERABLES * Triglyceride (01/27/2024 12:48 AM EST) [facility] Triglyceride 134 mg/dL 01/27/2024 11:42 AM EST [facility] Comment: Normal: <150 mg/dL Borderline High: 150-199 mg/dL High: 200-499 mg/dL Very High: > or =500 mg/dL Blood VENOUS BLOOD SPECIMEN / Unknown Venipuncture / Unknown 01/27/2024 12:48 AM EST 01/27/2024 12:54 AM EST Charu Balbuena MD CHEMISTRY ORDERABL ES Performing Organization Address City/[facility]/ZIP Co de Phone Number [facility] [place] [address] * Gold Tube HOLD (01/25/2024 6:52 AM EST) [facility] Gold Hold Hold for Add-on 01/25/2024 9:01 AM EST [facility] Blood VENOUS BLOOD SPECIMEN / Unknown Venipuncture / Unknown 01/25/2024 6:52 AM EST 01/25/2024 7:05 AM EST Charu Balbuena MD CHEMISTRY ORDERABL ES [facility] [place] [address] * (ABNORMAL) Alanine Aminotransferase (01/25/2024 6:52 AM EST) Alanine Aminotransferase 108(H) 0 - 55 unit/L 01/25/2024 7:47 AM EST [facility] Blood VENOUS BLOOD SPECIMEN / Unknown Venipuncture / Unknown 01/25/2024 6:52 AM EST 01/25/2024 7:02 AM EST Charu Balbuena MD CHEMISTRY ORDERABL ES Performing Organization Address City/[facility]/ZIP Co de Phone Number [facility] [place] [address] * (ABNORMAL) Aspartate Aminotransferase (01/25/2024 6:52 AM EST) Aspartate Aminotransferase 63(H) <=39 unit/L 01/25/2024 7:47 AM EST [facility] Blood VENOUS BLOOD SPECIMEN / Unknown Venipuncture / Unknown 01/25/2024 6:52 AM EST 01/25/2024 7:02 AM EST Charu Balbuena MD CHEMISTRY ORDERABL ES Performing Organization Address [facility] Co de Phone Number [facility] [place] [address] * Potassium (01/25/2024 6:52 AM EST) Pathologist [facility] Potassium 3.8 3.5 - 5.0 mMol/L 01/25/2024 7:47 AM EST [facility] Blood VENOUS BLOOD SPECIMEN / Unknown Venipuncture / Unknown 01/25/2024 6:52 AM EST 01/25/2024 7:02 AM EST Charu Balbuena MD CHEMISTRY ORDERABL ES Performing Organization Address City/[facility] Co de Phone Number [facility] [place] [address] * (ABNORMAL) Blood Gas, Arterial POC (01/23/2024 6:59 PM EST) Only the most recent of6 resultswithin the time period is included. pH, Arterial 7.37 7.35 - 7.45 01/24/2024 6:32 AM [facility] PCO2, Arterial 39 35 - 45 mmHg 01/24/2024 6:32 AM [facility] PO2, Arterial 133(H) 85 - 104 mmHg 01/24/2024 6:32 AM [facility] Bicarbonate, Arterial 21.7 20.0 - 26.0 mmol/L 01/24/2024 6:32 AM [facility] Base Excess, Arterial -3.6(L) -3.0 - 3.0 mmol/L 01/24/2024 6:32 AM [facility] Hemoglobin, Arterial 10.4(L) 13.7 - 16.5 g/dL 01/24/2024 6:32 AM [facility] Oxyhemoglobin, Arterial 96.0 94.0 - 97.0 % 01/24/2024 6:32 AM [facility] Carboxyhemoglobin , Arterial 0.3 % 01/24/2024 6:32 AM [facility] Comment: Nonsmokers: 0.5-1.5% COHB ?? Smokers: Variable ??but usually less than 10% ?? Toxic: 20-30% COHB ?? Lethal: Greater than 60% COHB Methemoglobin, Arterial 0.3 <=1.5 % 01/24/2024 6:32 AM [facility] Sodium, Arterial 135 135 - 145 mmol/L 01/24/2024 6:32 AM [facility] Potassium, Arterial 3.8 3.5 - 5.0 mmol/L 01/24/2024 6:32 AM [facility] Chloride, Arterial 105 98 - 107 mmol/L 01/24/2024 6:32 AM [facility] Lactate, Arterial 1.3 0.5 - 2.2 mmol/L 01/24/2024 6:32 AM [facility] IONIZED CALCIUM, ARTERIAL 1.08(L) 1.15 - 1.33 mmol/L 01/24/2024 6:32 AM [facility] Glucose, Arterial 116 65 - 199 mg/dL 01/24/2024 6:32 AM EST [facility] Comment:Glucose Concentratio n >=200 mg/dL plus symptoms is consistent with Diabetes Mellitus. Blood ARTERIAL BLOOD / Unknown 01/23/2024 6:59 PM EST 01/24/2024 6:32 AM EST Charu Balbuena MD POINT OF CARE TEST ORDERABLES Performing Organization Address [facility] Co md Phone Number [facility] [place] [address] * APTT (01/23/2024 5:06 PM EST) Partial Thromboplastin Time 26 25 - 37 sec 01/23/2024 5:53 PM EST [facility] Comment: The PTT is NOT appropriate for heparin monitoring. Use the Anti-Xa level for heparin monitoring (HEP UFH) or LMWH monitoring (HEP LMW). A PTT less than 37 seconds generally indicates adequate hemostasis. Blood VENOUS BLOOD SPECIMEN / Unknown Venipuncture / Unknown 01/23/2024 5:06 PM EST 01/23/2024 5:19 PM EST Charu Balbuena MD HEMATOLOGY ORDERAB LES Performing Organization Address [facility] Phone Number [facility] [place] [address] * (ABNORMAL) Prothrombin Time (01/23/2024 5:06 PM EST) Prothrombin Time 12.7(H) 9.4 - 12.5 sec 01/23/2024 5:53 PM EST [facility] International Normalization Ratio 1.1 <=4.9 01/23/2024 5:53 PM EST [facility] Comment: An INR < 2.0 [...] MD HEMATOLOGY ORDERAB LES Performing Organization Address City/[facility]/ZIP Co de Phone Number [facility] [place] [address] * Fibrinogen (01/23/2024 5:06 PM EST) Fibrinogen 242 200 - 393 mg/dL 01/23/2024 5:53 PM EST [facility] Comment: A fibrinogen level >100 mg/dL is adequate for hemostasis in most patients without underlying bleeding disorders. Blood VENOUS BLOOD SPECIMEN / Unknown Venipuncture / Unknown 01/23/2024 5:06 PM EST 01/23/2024 5:19 PM EST Charu Balbuena MD HEMATOLOGY ORDERAB LES Performing Organization Address City/[facility] Co de Phone Number [facility] [place] [address] * (ABNORMAL) Hemoglobin A1c (01/23/2024 5:06 PM EST) Hemoglobin A1c 7.0(H) 4.3 - 5.6 % 01/23/2024 5:49 PM EST [facility] Comment: Per ADA guidelines, without [...] red blood cell turnover may not be training representative of glycemic control. Reference Interval: 4.3 - 5.6% 5.7 - 6.4%: Consistent with prediabetes >=6.5%: Consistent with diagnosis of diabetes mellitus Estimated Average Glucose 01/23/2024 5:49 PM EST [facility] Comment:Estimated Average Gl ucose not appropriate for patients over 70 years of age. Blood VENOUS BLOOD SPECIMEN / Unknown Venipuncture / Unknown 01/23/2024 5:06 PM EST 01/23/2024 5:18 PM EST Narrative [facility] - 01/23/2024 5:49 PM EST Estimated average glucose (eAG) is calculated from the equation described in: César SAMPSON, Steven J, Soto R, et al. ??Translating the A1C assay into estimated average glucose values. ??Diabetes Care 2008:31(8):8227-4558. Additional resources are available on the ADA website (diabetes.org). Charu Balbuena MD CHEMISTRY ORDERABL ES Performing Organization Address City/State/[facility] Co de Phone Number [facility] [place] [address] * (ABNORMAL) Surgical Pathology (01/23/2024 11:16 AM EST) Case Report Surgical Pathology Report ? Case: [id number] ? Authorizing Provider: ??Charu Balbuena MD ?Collected: ? 01/23/2024 1116 ? Ordering Location: ? Main Operating Room [place] ?? Received: ?01/23/2024 1403 ? [facility] ? Hospital ? Pathologist: ? Li Lynne MD ? Specimens: ?? A) - Lymph Node, Gastric, common hepatic artery lymph node ? B) - Pancreas, head of pancreas, duodenum, bile duct, gallbladder, antrum ? 4 2:36 PM [facility] Final Diagnosis A. Lymph Node: Lymph node, negative for carcinoma (0/1). B. Pancreas, head of pancreas, duodenum, bile duct, gallbladder, antrum Excision: Residual invasive pancreatic ductal carcinoma, see Synoptic Report below. Gallbladder, negative for carcinoma. Omentum with fibrosis, negative for carcinoma. 4 2:36 PM [facility] Synoptic Report PANCREAS (EXOCRINE) PANCREAS [...] (PanIN) (highest grade): PanIN3 4 2:36 PM [facility] Discussion The case was reviewe d at the GI pathology consensus conference. 4 2:36 PM [facility] Additional Studies Task ID IHC/Special Stains Result B22-2 CKAE1/3 Reviewed for diagnosis B31-2 CKAE1/3 Reviewed for diagnosis B32-2 CKAE1/3 Reviewed for diagnosis 4 2:36 PM [facility] Disclaimer(s) Formalin-fixed, paraffin-embedded tissue sections are [...] and other diagnostic tests. 4 2:36 PM [facility] Clinical Information A. Lymph Node, common hepatic artery lymph node *Other - as specified in Clinical Information Pancreas cancer, common hepatic artery lymph node B. Pancreas, head of pancreas, duodenum, bile duct, gallbladder, antrum *Other - as specified in Clinical Information Pancreas cancer Yellow: pancreatic neck margin FROZEN [place]: SMA Green: bile duct margin Blue: vascular groove 4 2:36 PM [facility] Intraoperative Consultation B. Pancreas, head of pancreas, duodenum, bile duct, gallbladder, antrum. FS1 - Pancreatic neck margin: Negative for tumor. . This a preliminary intraoperative diagnosis. A final report will follow. 4 2:36 PM [facility] Gross Description A. Lymph Node, Gastric, [...] 13.5 cm Lesser Curvature: 7.5 cm Serosa: Parkway-red, smooth and glistening. Mucosa: Parkway with the usual rugal folds DUODENUM Length/Diameter: 32 x 2.5 cm Serosa: Parkway-red, smooth and glistening. Mucosa: Parkway-red with the usual folds slightly polypoid proximal to the ampulla.. Ampulla of Vater: Patent, with stent in place. GALLBLADDER Size: 10 x 3 x 3 cm Serosa: Parkway-purple and smooth Mucosa: Lumen contents consists of [...] 2 cm ill-defined firm indurated nodular area. Loan Secretary sections in 37 cassettes as follows: B1: FS 1-pancreatic neck margin en face B2: Hepatic duct margin en face B3: Gastric margin en face B4: Duodenum margin en face B5: Loan Secretary gallbladder and cystic duct B6: Cystic duct [...] omentum lesion sns 4 2:36 PM EST [facility] Result Note THIS RESULT REQUIRES PHYSICIAN/IDANIA FOLLOW UP(A) 4 2:36 PM EST [facility] Tissue STRUCTURE OF LEFT GASTRIC LYMPH NODE / Unknown 01/23/2024 11:16 AM EST 01/23/2024 2:03 PM EST Comment:Pancreas cancer, com mon hepatic artery lymph node Tissue specimen (specimen) PANCREATIC STRUCTURE / Unknown 01/23/2024 12:47 PM EST 01/23/2024 1:55 PM EST Comment:Pancreas cancer Yellow: pancreatic neck margin FROZEN [place]: SMA Green: bile duct margin Blue: vascular groove Charu Balbuena MD PATHOLOGY/CYTOLOGY ORDERABLES Performing Organization Address City/[facility]/ZIP Co de Phone Number [facility] [place] [address] * (ABNORMAL) Anaerobic Culture (01/23/2024 10:54 AM EST) Anaerobic Culture Rare Bacteroides fragilis group(A) VITEK 2 METHOD 01/27/2024 3:01 PM EST [facility] Tissue BILE DUCT STRUCTURE / Unknown 01/23/2024 10:54 AM EST Comment:Pancreatic cancer Charu Balbuena MD MICROBIOLOGY - GEN ERAL ORDERABLES [facility] [place] [address] * Tissue Culture, Aerobic Only (01/23/2024 10:54 AM EST) Tissue Culture No growth 01/27/2024 11:01 AM EST [facility] Gram Stain No neutrophils seen 01/27/2024 11:01 AM EST [facility] Gram Stain No microorganisms seen 01/27/2024 11:01 AM EST [facility] Tissue BILE DUCT STRUCTURE / Unknown 01/23/2024 10:54 AM EST Comment:Pancreatic cancer Charu Balbuena MD MICROBIOLOGY - GEN ERAL ORDERABLES [facility] [place] [address] * XR Fluoro No Rad <1Hr - OR Use (01/23/2024 7:50 AM EST) Narrative Dicom, Auditing User - 01/23/2024 8:08 AM EST This exam is auto-finalizing. No interpretation was done. Cayetano Rodgers MD IMG FLUORO ORDERABL ES * [id number] ONLY (01/23/2024 7:22 AM EST) Narrative Cayetano [...] procedure well without complications. Performed by: ?? Resident/BAIL ATTACHER: ? Jace Lyons MD ?? Fellow: ?Kolton Morejon, DO ?? Attending Physician: ? Cayetano Rodgers MD Authorized by: Cayetano Rodgers MD ?? ~~~~~~~~~~~~~~~~~~~~~~~~~~~~~~~~~~~~~~~~~~~~~~~~~~~~~~~~~~~~ Cayetano Rodgers MD [facility] * Lipid Panel (Reflex Direct LDL) (07/18/2021 8:33 PM EDT) Cholesterol, Total 151 mg/dL [facility] Comment: Lower Risk: <200 mg/dL Average Risk: 200-239 mg/dL Higher Risk: >zf=769 mg/dL Triglyceride 162 mg/dL [facility] Comment: Average Risk/Lower Risk: <150 mg/dL Borderline High Risk: 150-199 mg/dL High Risk: 200-499 mg/dL Very High Risk: >dc=350 mg/dL HDL Cholesterol 38 mg/dL [facility] Comment: Males: ?? Higher Risk: <40 mg/dL Females: ?? Higher Risk: <50 mg/dL LDL Cholesterol 81 mg/dL [facility] Comment: Lowest Risk: <100 mg/dL Lower Risk: 100-129 mg/dL Borderline High Risk: 130-159 mg/dL High Risk: 160-189 mg/dL Very High Risk: >bb=388 mg/dL Cholesterol/HDL Ratio 4.0 ratio [facility] Lipid Interpretation See Note [facility] Comment: Lipid management should be guided by a patient? s ASCVD risk, goals and preferences. ACC/AHA Guidelines recommend high intensity statin if clinical ASCVD or LDL greater than or equal to 190 mg/dL. http://[employer].com/ARB-ZKD-Zflmwzzrf Adults aged 40-75 with LDL 70-189 mg/dL should have their 10 year ASCVD risk estimated with the ACC/AHA ASCVD risk sales estimator http://tools.acc.org/VKRXO-Mezu-Rflxmboid/ Statin should be discussed if risk greater [...] In Lab Salome Rodriguez APRN CHEMISTRY ORDERABLES [facility] [place] [address] from Last 3 Months or Most Recently Relevant to Health Maintenance Advance Directives Documents on File Type Date Recorded Patient Loan Secretary Colleen nielsen Personal Loan Secretary 07/04/2023 9:10 AM susanmasood roper Personal Loan Secretary 10/07/2020 7:46 AM ЕКАТЕРИНА SADLER Personal Loan Secretary 10/07/2020 7:45 AM HUNG FAJARDO Personal Loan Secretary 05/04/2021 1:43 PM brother Personal Loan Secretary 05/04/2021 1:43 PM brother * Attempt Cardiopulmonary [...] Relationship Healthcare Agent Relationship Communication Yessi (Maite) [facility] Child Health Care Agent [phone] (Mobile ) Care Teams Customer Service And Sales Consultant Relationship Specialty Start Date End Date Tritsen Hunter MD [address] [place] [address] [place] [address] PCP - General Family Medicine 07/04/23
--- OUTSIDE RECORDS SUMMARY | 2024-03-26 10:30 | XMS_ITS | Encounter Summary ---
Author Organization [facility] Address [facility] [place] [address] Care Team Providers Care Payable Processor Name Role Phone Tristen Hunter MD Primary Care Provider [phone] Encounter Details Date Type Department Care Team (Late st Contact Info) Description 02/27/2024 10:00 AM EST Telephone Hematology/Oncology at [address] [phone] [facility] DR HEMATOLOGY [place] [address] Social History Tobacco Use Types Packs/Day Years Used Date Smoking Tobacco: Former Cigarettes 4 30 1 3 - 1992 Smokeless Tobacco: Never Alcohol Use Standard Drinks/Week Comments Yes 7 (1 standard drink = 0.6 oz pur e alcohol) [facility] Utilities Answer Date Recorded In the past 12 months has [employer] electric, gas, oil, or water company threatened [...] any time in the past 12 m [facility], were you homeless or [...] portions. He had a ham dinner for [place] yesterday and plans on having spaghetti today. [...] Diet: Eating at least 4 meals/day plus Greenlandic yogurt + cookie at HS. Creon 24: [...] Tresiba insulin, imdur, Creon 24, lisinopril, omega 5-EUZ-SPX-fish oil, flomax Nutrition Problem: Altered GI function [...] AM EST Office Visit Hematology/Oncology at [address] [phone] Cl Hess MD [facility] [place] [address] Yessi Renee, [address] HEMATOLOGY AND ONCOLOGY [place], [place] [phone] 04/09/2024 10:00 AM EST Infusion Hematology Oncology at [address] [phone] 04/23/2024 9:30 AM EST Office Visit Hematology/Oncology at [address] [phone] Cl Hess MD [facility] [place] [address] Yessi Renee, [address] HEMATOLOGY AND ONCOLOGY [place], [place] [id number] 04/23/2024 10:00 AM EST Infusion Hematology Oncology at [address] [phone] 05/18/2024 4:30 PM EDT TH Visit (TeleHealth) [place] [phone] Malachi Rothman MD [facility] [place] [address] 09/24/2024 9:00 AM EDT Office Visit Radiation Oncology at [address] [phone] Ping Moore PA [facility] DR HEMATOLOGY [place] [address] documented as of this encounter Visit Diagnoses Not on filedocumented in this encounter Care Teams Payable Processor Relationship Specialty Start Date End Date Tristen Hunter MD [address] [place] [address] [place] [address] PCP - General Family Medicine 07/04/23 documented as of this encounter
--- OUTSIDE RECORDS SUMMARY | 2024-03-26 10:30 | XMS_ITS | Encounter Summary ---
[place] [address] Care Team Providers Care Physics And Astronomy Professor Name Role Phone Tristen Hunter MD Primary Care Provider [phone] Encounter Details Date Type Department Care Team (Latest Contact Info) Description 02/07/2024 Travel Social History Tobacco Use Types Packs/Day Years Used Date Smoking Tobacco: Former Cigarettes 4 30 1 963 - 1992 Smokeless Tobacco: Never Alcohol Use Standard Drinks/Week Comments Yes 7 (1 standard drink = 0.6 oz pur e alcohol) [facility] Utilities Answer Date Recorded In the past 12 months has [employer], gas, oil, or water company threatened [...] any time in the past 12 m [facility], were you homeless or living in a detention (including now)? No 01/24/2024 IPV Inpatient Questions [...] AM EST Office Visit Hematology/Oncology at [address] [phone] Cl Hess MD [facility] [place] [address] [address] HEMATOLOGY AND ONCOLOGY [place], [place] [id number] 04/09/2024 10:00 AM EST Infusion Hematology Oncology at [address] [phone] 04/23/2024 9:30 AM EST Office Visit Hematology/Oncology at [address] [phone] Cl Hess MD [facility] [place] [address] [address] HEMATOLOGY AND ONCOLOGY [place], [place] [phone] 04/23/2024 10:00 AM EST Infusion Hematology Oncology at [address] [phone] 05/18/2024 4:30 PM EDT TH Visit (TeleHealth) [place] [address] Malachi Rothman MD [facility] DR [place] [address] 09/24/2024 9:00 AM EDT Office Visit Radiation Oncology at [address] [phone] Ping Moore PA [facility] DR HEMATOLOGY [place] [address] documented as of this encounter Visit Diagnoses Not on filedocumented in this encounter Care Teams Physics And Astronomy Professor Relationship Specialty Start Date End Date Tristen Hunter MD [address] [place] [address] [place] [address] PCP - General Family Medicine 07/04/23 documented as of this encounter
--- OUTSIDE RECORDS SUMMARY | 2024-03-26 10:30 | XMS_ITS | Encounter Summary ---
Author Organization [facility] [place] [address] Care Team Providers Care Halver Machine Operator Name Role Phone Tristen Hunter MD Primary Care Provider [phone] Encounter Details Date Type Department Care Team (Latest Contact Info) Description 03/12/2024 10:30 AM EST Clinical Support Hematology/Oncology at [address] [phone] [facility] [place] [address] Malignant neoplasm of head of pancreas Social History Tobacco Use Types Packs/Day Years Used Date Smoking Tobacco: Former Cigarettes 4 30 1 3 - 1992 Smokeless Tobacco: Never Alcohol Use Standard Drinks/Week Comments Yes 7 (1 standard drink = 0.6 oz pur e alcohol) [facility] Utilities Answer Date Recorded In the past 12 months has [employer], gas, oil, or water company threatened [...] any time in the past 12 m [facility], were you homeless or living in a alf (including now)? No 01/24/2024 DH IPV Inpatient [...] of this encounter Progress Notes * Lupe Velasquez E, RD - 03/12/2024 10:30 AM EST Nutrition Note Spoke with Wero in infusion today. Patient is starting C1 of four planned cycles of mFolfirinox (adjuvant chemo). 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 Today's weight is 1# below weight at discharge from hospital following surgery 6 weeks ago. Patientsays he thinks he has actually lost some weight in past two weeks, as his weight was 203# at PCP's office two weeks ago (today is 189#). He is eating 3 meals/day plus one snack. His appetite is smaller than it was prior to surgery and portions sound decent though also smaller than what he used to be able to eat. Patient takes Creon 24: 1 per meal/snack but 2 with larger evening meal. This is quite a bit less than he was taking prior to surgery. BM's are sometimes loose and sometimes formed. He is blind and enable to tell if stools appear oilyor floating. He does have foul smelling gas especially when he lies down at night. He says he mostly sits in his chair and listens to the TV at home. He tries to get up and walk around the house. Blood glucose was >400 with apple pie yesterday, but otherwise has been in 150- 250. He is followed closely by PCP's office for adjustments in insulin based on his CGM readings. Wt Readings from Last 10 Encounters: 03/12/24 85.7 kg (189 lb) 02/01/24 86.3 kg (190 lb 4.1 oz) 12/17/23 95.7 kg (211 lb) 11/29/23 92.2 kg (203 lb 3.2 oz) 12/02/23 90.7 kg (200 lb) 11/27/23 89.3 kg (196 lb 12.8 oz) 11/25/23 90.1 kg (198 lb 9.6 oz) 11/21/23 90.3 kg (199 lb) 11/18/23 90.7 kg (200 lb) 11/15/23 90.3 kg (199 lb) 11/21/24 210 lb surgery BMI 27.89 Weight down 1# in 6 weeks 01/31-03/12 since hospital discharge. Patient reports he has lost weight inpast two weeks. 21# loss after Whipple surgery 01/22-01/31 (9.5% body weight) - severe Unsure of accuracy of this weight loss - question if edema/diuresis was factor 35# re-gain in 5.5 months 07/04-12/17/23 Includes 8# gain in past 3 weeks 11/28-12/16 44# (23.2% body weight) loss over past year per chart 07/31/22-07/05/23 Lost 85# total per patient Diet: 24 hr recall: Egg McMuffin with sausage and cheese, sandwich with 4 slices of meat, Big bowl of soup chicken vegetable with crackers, apple pie - 2 slices. Occasionally drinks Glucerna, not daily. Creon 24: 1 per meal/snack, except 2 with dinner Beverages: Changed from regular to decaf coffee 2-3 cups/day, cran apple juice (1 gallon every 4-5 days), 40 oz water per day Medications: amlodipine, aspirin, atorvastatin, carvedilol, chlorthalidone, folic acid, Fiasp sliding scale insulin, Tresiba insulin (26 units), imdur, Creon 24, lisinopril, omega 7-DNR-NAY-fish oil,flomax Labs on 03/12: WBC/ANC 4.03/2719, Hgb/Hct 10.2/31.4, Plts 183,000, BUN/Cr 12/0.84, t bili 1.52, glucose 250, albumin 3.0, t protein 6.1, Ca 8.4 (corrected 9.0), alk phos 125,K 3.4, CO2 34.2, remainder of CMP otherwise unremarkable. Nutrition Problem: Altered GI function related to pancreatic cancer s/p Whipple procedure 01/23/24 as evidenced by need for PERT and 21# loss after Whipple surgery 01/22-01/31 (9.5% body weight) - severe Weight stable compared to 6 weeks ago but down in past two weeks per pt Recommendations: Continue with carb controlled diet with regular, frequent meals and snacks to maintain weight. Currently eating 3 meals and 1 snack daily. Suggested adding in 1 Glucerna per day as he reports weight loss in past two weeks. Provided 1 case (24 bottles) of Glucerna. Suggested taking 1 Creon 24 with this. Creon 24: dosing 2 with evening meal and 1 with other meals and snacks. Suggested increasing to 2 per meal (3 with evening meal) and 1 per smaller snack (including Glucerna), given loose stools at times, foul gas, and weight loss. Script allows for pre-surgery amount of 15 capsules per day. Will f/u on 03/26 documented in this encounter Plan of Treatment Upcoming Encounters Date Type Department Care Team (Late st Contact Info) Description 04/09/2024 9:30 AM EST Office Visit Hematology/Oncology at [address] [phone] Cl Hess MD [facility] [place] [address] [address] [place] [address] 04/09/2024 10:00 AM EST Infusion Hematology Oncology at [address] [phone] 04/23/2024 9:30 AM EST Office Visit Hematology/Oncology at [address] [phone] Cl Hess MD [facility] [place] [address] [address] [place] [address] 04/23/2024 10:00 AM EST Infusion Hematology Oncology at [address] [phone] 05/18/2024 4:30 PM EDT TH Visit (TeleHealth) [place] [address] Malachi Rothman MD [facility] [place] [address] 09/24/2024 9:00 AM EDT Office Visit Radiation Oncology at [address] [phone] Ping Moore PA [facility] [place] [address] documented as of this encounter Visit Diagnoses Diagnosis Malignant neoplasm of head of pancreas documented in this encounter Care Teams Halver Machine Operator Relationship Specialty Start Date End Date Tristen Hunter MD [address] [place] [address] [place] [address] PCP - General Family Medicine 07/04/23 documented as of this encounter
--- OUTSIDE RECORDS SUMMARY | 2024-03-26 10:30 | XMS_ITS | Encounter Summary ---
Author Organization [facility] Address [facility] [place] [address] Care Team Providers Care Lapping Machine Tender Name Role Phone Tristen Hunter MD Primary Care Provider [phone] Encounter Details Date Type Department Care Team (Late st Contact Info) Description 03/26/2024 9:00 AM EST Office Visit Radiation Oncology at [address] [phone] Ping Moore PA [facility] DR [place] [address] Malignant neoplasm of prostate (Primary Dx); S/P radiotherapy Social History Tobacco Use Types Packs/Day Years Used Date Smoking Tobacco: Former Cigarettes 4 30 1 3 1992 Smokeless Tobacco: Never Alcohol Use Standard Drinks/Week Comments Yes 7 (1 standard drink = 0.6 oz pur e alcohol) [facility] Utilities Answer Date Recorded In the past 12 months has [employer], gas, oil, or water company threatened to [...] any time in the past 12 m [facility], were you homeless or living in a intermediate (including now)? No 01/24/2024 DH IPV Inpatient [...] 13.3 oz) 03/26/2024 8:37 AM EST Height - - Body Mass Index 27.73 03/12/2024 9:32 AM EST documented in this encounter Progress Notes * Ping Moore PA - 03/26/2024 9:00 AM EST [facility] [place] [address] FOLLOW-UP: Patient: Wero Sadler : 1950 PCP: [...] Surveillance Interval Symptoms Since Last Visit on 12/31/23: 02/03/24: seen in [facility] ED for hypotension (80/40) and SOB. BP improved with fluids. CTA, EKG, and Troponin reassuring. Discharged home with [facility]. 02/06/24: seen in [facility] ED for orthostatic syncope and hypotension. General: Doing well. 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 Hoping to go to [place] later this winter or this spring for a few weeks. 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 Energy is slowly improving s/p Whipple. Lives alone, but brother lives 2 miles away. Weight/Appetite/Diet: Denies recent appetite or weight changes. Respiratory: Denies SOB or cough. Cardiovascular: H/o CAD s/p CABG x 3, follows with Vascular Surgery. Denies chest pain, palpitations, calf pain/swelling, or other peripheral edema. GI: Has pancreatic cancer, s/p mFOLFIRINOX with Dr. Hess. Completed MRI-guided SBRT to his pancreas (50 Gy in 5 fractions) with Dr. Rothman on 11/27/23. Underwent Whipple on 01/23/24. Has occasional diarrhea, none this morning. Unknown if he has melena or hematochezia since he is almost completely blind. Denies N/V or constipation. : S/p PVP 02/02/21. Continues to have nocturia x 1. Takes Flomax 0.4 mg QHS. Unknown if he has hematuria since he is almost completely blind. Denies dysuria, leakage, difficulty initiating urination, difficulty emptying bladder, increased [...] completely blind in right eye, follows with [facility]. Reports some balance issues 2/2 blindness and diabetic neuropathy. Denies headaches or seizures. Mood: Denies mood swings or feeling depressed. Tobacco Use: Smoked 4 PPD x > 30 years, quit on 03/04/92. Alcohol Use: Drinks 1, 4 oz glass of red wine occasionally, but not everyday. Social Support: Brother. Allergies: Allergies Allergen Reactions Belinostat Other (See [...] a dye used during vascular procedure at [facility] in [place]: shaking Has tolerated MRI and CT contrast. Pazopanib Other (See Comments) UGT1A1 Poor Metabolizer. See Clinical Pharmacist Note from 07/04/23 for information. Sacituzumab Govitecan-Hziy Other (See Comments) UGT1A1 Poor Metabolizer. See Clinical Pharmacist Note from 07/04/23 for dosing recommendations. Current Medications: Current Outpatient Medications on File Prior to Visit Medication Sig Dispense Refill multivitamin (THERAGRAN) Tablet Take 1 tablet by mouth daily. ercuil-yrxxnxwz-pwkpdsb DR (Creon 24) 24,000-76,000 -120,[address] capsule Take 3 per meal three times daily and 2 per snack three times daily (15 capsules/day) (Patient taking differently: Taking 4-6 tablets daily.) 450 capsule 11 tamsulosin (Flomax) 0.4 mg capsule Take 1 capsule by mouth nightly. 30 capsule 11 Insulin Fiasp FlexTouch U-100 100 unit/mL (3 mL) Insulin Pen Inject 3 mLs subcutaneously 4 times daily. 3-18 units. Insulin Tresiba FlexTouch U-100 100 unit/mL (3 mL) Insulin Pen 26 units once daily. chlorthalidone (Hygroton) 25 mg tablet Take 25 mg by mouth daily. omeprazole (PriLOSEC) [address] capsule Take 20 mg by mouth as needed. omega 4-abo-bxb-fish oil 250-350-1,000 mg Capsule Take 1,000 mg by mouth. carvediloL (Coreg) 25 mg Tablet Take 1 tablet by mouth 2 times daily (with meals). Carvedilol (holdfor SBP <110, Hr <60) (Patient taking differently: Take 25 mg by mouth daily. Carvedilol (hold for SBP <110, Hr <60)) lisinopriL (Zestril) 40 mg Tablet Take 1 tablet by mouth daily. Lisinopril (hold for SBP <130) timoloL (Timoptic) 0.5 % Drops 1 drop 2 times daily. erythromycin (Romycin) 5 mg/gram (0.5 %) [...] (E.C.) Take 81 mg by mouth daily. amLODIPine (Norvasc) 10 mg Tablet Take 0.5 tablets by mouth daily. Amlodipine (Hold if SBP<120) (Patient not taking: Reported on 03/12/2024) No current facility-administered medications on file prior [...] confined to bed or chair Physical Examination: Patient Vitals for the past 24 hrs: Temp Pulse Resp BP SpO2 03/26/24 0837 36.5 ??C (97.7 ??F) 73 17 108/52 100 % Constitutional: well-groomed, conversant. NAD. HEENT: normocephalic. Right EOMI, sclerae anicteric, conjunctivae non-injected. Left prosthetic eye. Moist mucous membranes, no thrush or oral lesion. Neck: supple, trachea midline. No adenopathy. Respiratory: non-labored respirations with symmetrical expansion. Lungs CTA bilaterally. Cardiovascular: RRR without murmurs or gallops. No peripheral edema. Musculoskeletal: moving all extremities ad deedee. MARY. No swelling or deformity. Neurologic: alert and oriented x 3. Speech clear and coherent. Left prosthetic eye, almost completely blind in right eye; cranial nerves III-XII grossly intact. Skin: warm, dry, pink, intact. Psychiatric: mood is euthymic, affect is congruent. Insight and judgement are good. Labs Reviewed This Visit: Date PSA Testosterone ([id number]) *exception Notes 03/2020 15.4 05/2020 18.5 10/05/20 21.6 01/20/21 16.5 01/31/21 Started Lupron 06/21/21 3.7 16 09/06/21 Completed RT 11/14/21 0.05 8 06/29/22 0.05 50 06/25/23 0.09 2.12 *(Testosterone Reference Range: 1.93-7.4) 12/06/23 0.18 03/20/24 0.13 255 Assessment & Plan: #Prostate cancer: - Completed 13 months of ADT with coverage through 03/2022. - Labs reviewed from 03/20/24: PSA 0.13, slightly decreased since 12/06/23. Testosterone 255 (WNL), but since pre-ADT Testosterone is unknown, Testosterone was checked again to see if it was still recovering and therefore contributing to the 12/2023 rise in PSA. However, since Testosterone appears tonia stable at the lower end of normal, patient is not on ADT, PSA has decreased, and patient is asymptomatic (has a good energy level, never had hot flashes), there is no need to continue checking hisTestosterone level at this time. - LUTS stable on Flomax 0.4 mg QHS. - Per NCCN guidelines, PSA and H&P due every 6 months x 5 years s/p RT completion, then annually (PSA may be checked more frequently depending on risk level or other patient-specific factors). MELIA if suspicious for recurrence. - Next PSA and H&P due in 6 months. #Effects of EBRT: - Completed definitive [...] #Resources provided: none #Referrals placed: none Follow-Up: - Next visit (in-person on same day as Medical Oncology or by phone since pt is almost totally blind): 6 months - Labs ([facility]): PSA Wero Sadler had the opportunity to [...] AM EST Office Visit Hematology/Oncology at [address] [phone] Cl Hess MD [facility] [place] [address] Yessi Renee, [address] HEMATOLOGY AND ONCOLOGY [place], [place] [address] 04/09/2024 10:00 AM EST Infusion Hematology Oncology at [address] [phone] 04/23/2024 9:30 AM EST Office Visit Hematology/Oncology at [address] [phone] Cl Hess MD [facility] [place] [address] [address] HEMATOLOGY AND ONCOLOGY [place], [place] [phone] 04/23/2024 10:00 AM EST Infusion Hematology Oncology at [address] [phone] 05/18/2024 4:30 PM EDT TH Visit (TeleHealth) [place] [address] Malachi Rothman MD [facility] [place] [address] 09/24/2024 9:00 AM EDT Office Visit Radiation Oncology at [address] [phone] Ping Moore PA [facility] [place] [address] Scheduled Orders Name Type Priority Associated Diagnoses Orde r Schedule PSA (Ultrasensitive) Lab Routine Malignant neoplasm of prostate Expected: 09/17/2024 (Approximate), Expires: 03/19/2025 documented as of this encounter Visit Diagnoses Diagnosis Malignant neoplasm of prostate- Primary S/P radiotherapy Convalescence following radiotherapy documented in this encounter Care Teams Lapping Machine Tender Relationship Specialty Start Date End Date Tristen Hunter MD [address] [place] [address] [place] [address] PCP - General Family Medicine 07/04/23 documented as of this encounter
--- OUTSIDE RECORDS SUMMARY | 2024-03-26 10:30 | XMS_ITS | Encounter Summary ---
Author [place] [address] Care Team Providers Care Full Stack Java Developer Name Role Phone Tristen Hunter MD Primary Care Provider Encounter Details Date Type Department Care Team (Late st Contact Info) Description 02/25/2024 1:00 PM EST TH Visit (TeleHealth) Hematology/Oncology at [address] [phone] Yessi Renee, [address] H[place]AT[place] [address] Malignant neoplasm of head of pancreas Social History Tobacco Use Types Packs/Day Years Used Date Smoking Tobacco: Former Cigarettes 4 30 1 3 - 1992 Smokeless Tobacco: Never Alcohol Use Standard Drinks/Week Comments Yes 7 (1 standard drink = 0.6 oz pur e alcohol) [facility] Utilities Answer Date Recorded In the [...] in a penitentiary (including now)? No 06/04/2023 Housing Stability Vital [...] were you homeless or living in a penitentiary (including now)? No 01/24/2024 DH IPV Inpatient [...] this encounter Progress Notes * Yessi Renee, DRYWALL PROFESSIONAL - 02/25/2024 1:00 PM EST Subjective Patient ID: Wero Salder is 74 y.o. Problem List: Pancreatic cancer, [...] periduodenal or perilesional adenopathy was appreciated Impression: [id number] pancreas head mass lesion with biliary and [...] disease/disease progression on interim staging evaluation. E. [facility] second read of CT c/a/p from 05/22/23 [...] is stable as well. 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 While in [facility], he presented with chest pain and [...] 06/07/23. Pathology was requested for review at [facility] and we also requested that images be [...] for mFolfirinox. [facility] [...] plan was for a blood draw in [facility] once he starts his infusions. If genetic testing showed a BRCA or PALB2 mutation, he may be eligible for a clinical trial looking at theuse olaparib following completion of chemotherapy and surgery to see if this improves RFS. He is also being followed by our clinical aircraft painter, Lupe Velasquez. On 07/12/23 he began neoadjuvant [...] with Dr. Rothman in Radiation Oncology at [facility] on 10/25/23. He completed SBRT on 11/27/23 [...] AM EST Office Visit Hematology/Oncology at [address] [phone] Cl Hess MD [facility] [place] [address] Yessi Renee DRYWALL PROFESSIONAL [address] [place] [address] DR HEMATOLOGY [place] [address] 04/09/2024 10:00 AM EST Infusion Hematology Oncology at [address] [phone] 04/23/2024 9:30 AM EST Office Visit Hematology/Oncology at [address] [phone] Cl Hess MD [facility] [place] [address] Yessi Renee DRYWALL PROFESSIONAL [address] [place] [address] DR HEMATOLOGY [place] [address] 04/23/2024 10:00 AM EST Infusion Hematology Oncology at [address] [phone] 05/18/2024 4:30 PM EDT TH Visit (TeleHealth) [place] [address] Malachi Rothman MD [facility] [place] [address] 09/24/2024 9:00 AM EDT Office Visit Radiation Oncology at [address] [phone] Ping Moore PA [facility] DR [place] [address] documented as of this encounter Visit Diagnoses Diagnosis Malignant neoplasm of head of pancreas documented in this encounter Care Teams Full Stack Java Developer Relationship Specialty Start Date End Date Tristen Hunter MD [address] [place] [address] [place] [address] PCP - General Family Medicine 07/04/23 documented as of this encounter
--- OUTSIDE RECORDS SUMMARY | 2024-03-26 10:30 | XMS_ITS | Encounter Summary ---
[place] [address] Care Team Providers Care Curling Machine Operator Name Role Phone Tristen Hunter MD Primary Care Provider [phone] Encounter Details Date Type Department Care Team (Late st Contact Info) Description 03/20/2024 Telephone Radiation Oncology at [address] [phone] Olena Shaw Social History Tobacco Use Types Packs/Day Years Used Date Smoking Tobacco: Former Cigarettes 4 30 1 963 - 1992 Smokeless Tobacco: Never Alcohol Use Standard Drinks/Week Comments Yes 7 (1 standard drink = 0.6 oz pur e alcohol) [facility] Utilities Answer Date Recorded In the past 12 months has [employer], gas, oil, or water company threatened to [...] a senior care (including now)? No 06/04/2023 Housing Stability Vital [...] you homeless or living in a senior care (including now)? No 01/24/2024 IPV Inpatient Questions [...] encounter Miscellaneous Notes * Telephone Encounter - Olena Shaw - 03/20/2024 3:25 PM EST I called rosalinda to let him know that he can have an in person visit with mikhail on 03/26 at 9am he isfine with that. He will be here documented in this encounter Plan of Treatment Upcoming Encounters Date Type Department Care Team (Late st Contact Info) Description 04/09/2024 9:30 AM EST Office Visit Hematology/Oncology at [address] [phone] Cl Hess MD [facility] [place] [address] [address] HEMATOLOGY [place] [address] 04/09/2024 10:00 AM EST Infusion Hematology Oncology at [address] [phone] 04/23/2024 9:30 AM EST Office Visit Hematology/Oncology at [address] [phone] Cl Hess MD [facility] [place] [address] [address] HEMATOLOGY [place] [address] 04/23/2024 10:00 AM EST Infusion Hematology Oncology at [address] [phone] 05/18/2024 4:30 PM EDT TH Visit (TeleHealth) [place] [address] Malachi Rothman MD [facility] [place] [address] 09/24/2024 9:00 AM EDT Office Visit Radiation Oncology at [address] [address] Mikhail Moore PA [facility] HEMATOLOGY [place] [address] documented as of this encounter Visit Diagnoses Not on filedocumented in this encounter Care Teams Curling Machine Operator Relationship Specialty Start Date End Date Tristen Hunter MD [address] [place] [address] [place] [address] PCP - General Family Medicine 07/04/23 documented as of this encounter
--- OUTSIDE RECORDS SUMMARY | 2024-03-26 10:30 | XMS_ITS | Encounter Summary ---
[place] [address] Care Team Providers Care Electric Freight Car Operator Name Role Phone Tristen Hunter MD Primary Care Provider [phone] Encounter Details Date Type Department Care Team (Late st Contact Info) Description 03/26/2024 9:30 AM EST Office Visit Hematology/Oncology at [address] [phone] Yessi Renee, [address] [place] [address] Arrived Social History Tobacco Use Types Packs/Day Years Used Date Smoking Tobacco: Former Cigarettes 07 01 1 3 - 1992 Smokeless Tobacco: Never Alcohol Use Standard Drinks/Week Comments Yes 7 (1 standard drink = 0.6 oz pur e alcohol) [facility] Utilities Answer Date Recorded In the past 12 months has [employer], gas, oil, or water company threatened [...] in a residential (including now)? No 06/04/2023 Housing Stability Vital [...] time in the past 12 m [facility], were you homeless or living in a residential (including now)? No 01/24/2024 DH IPV Inpatient [...] AM EST Office Visit Hematology/Oncology at [address] [phone] Cl Hess MD [facility] [place] [address] [address] HEMATOLOGY AND ONCOLOGY [place], [place] [phone] 04/09/2024 10:00 AM EST Infusion Hematology Oncology at [address] [phone] 04/23/2024 9:30 AM EST Office Visit Hematology/Oncology at [address] [phone] Cl Hess MD [facility] [place] [address] [address] HEMATOLOGY AND ONCOLOGY [place], [place] [phone] 04/23/2024 10:00 AM EST Infusion Hematology Oncology at [address] [phone] 05/18/2024 4:30 PM EDT TH Visit (TeleHealth) [place] [address] Malachi Rothman MD [facility] [place] [address] 09/24/2024 9:00 AM EDT Office Visit Radiation Oncology at [address] [phone] Ping Moore PA [facility] [place] [address] documented as of this encounter Visit Diagnoses Not on filedocumented in this encounter Care Teams Electric Freight Car Operator Relationship Specialty Start Date End Date Tristen Hunter MD [address] [place] [address] [place] [address] PCP - General Family Medicine 07/04/23 documented as of this encounter
--- OUTSIDE RECORDS SUMMARY | 2024-03-26 10:30 | XMS_ITS | Encounter Summary ---
Author Organization [facility] Address [facility] [place] [address] Care Team Providers Care Coining Press Operator Name Role Phone Tristen Hunter MD Primary Care Provider [phone] Encounter Details Date Type Department Care Team (Late st Contact Info) Description 02/04/2024 10:00 AM EST Telephone Hematology/Oncology at [address] [phone] [facility] DR [place] [address] Social History Tobacco Use Types Packs/Day Years Used Date Smoking Tobacco: Former Cigarettes 4 30 1 3 - 1992 Smokeless Tobacco: Never Alcohol Use Standard Drinks/Week Comments Yes 7 (1 standard drink = 0.6 oz pur e alcohol) [facility] Utilities Answer Date Recorded In the past 12 months has [employer] electric, gas, oil, or water company threatened [...] any time in the past 12 m [facility], were you homeless or living in a [...] Telephone Encounter - Lupe Velasquez, RD - 02/04/2024 10:38 AM EST [...] to drink. He is followed by diabetes clinical support nurse (Alley) at [facility] who advised him yesterday to increase long-acting [...] per snack prior to surgery, lisinopril, omega 1-NPB-CQY-fish oil, flomax Labs on 01/31: Na 133L, K 4.3, BUN 20, Creat 0.71L, BG 151, H/H 9.2/27.5 01/22: A1C 7.0% Nutrition Problem: Inadequate intake related to s/p Whipple procedure as evidenced by ED visit for dehydration on 02/02. Estimated needs based on 86.3 [id number] kcals (25-30 kcal/kg) 86-112 g protein (1-1.3 [...] snack prior to surgery. Left voicemail for [facility] as they have not yet had initial visit. Will f/u next week on 02/09 documented in this encounter Plan of Treatment Upcoming Encounters Date Type Department Care Team (Late st Contact Info) Description 04/09/2024 9:30 AM EST Office Visit Hematology/Oncology at [address] [phone] Cl Hess MD [facility] [place] [address] [address] [place] [address] 04/09/2024 10:00 AM EST Infusion Hematology Oncology at [address] [phone] 04/23/2024 9:30 AM EST Office Visit Hematology/Oncology at [address] [phone] Cl Hess MD [facility] [place] [address] [address] [place] [address] 04/23/2024 10:00 AM EST Infusion Hematology Oncology at [address] [phone] 05/18/2024 4:30 PM EDT TH Visit (TeleHealth) [place] [address] Malachi Rothman MD [facility] [place] [address] 09/24/2024 9:00 AM EDT Office Visit Radiation Oncology at [address] [address] Ping Moore PA [facility] [place] [address] documented as of this encounter Visit Diagnoses Not on filedocumented in this encounter Care Teams Coining Press Operator Relationship Specialty Start Date End Date Tristen Hunter MD [address] [place] [address] [place] [address] PCP - General Family Medicine 07/04/23 documented as of this encounter
--- OUTSIDE RECORDS SUMMARY | 2024-03-26 10:30 | XMS_ITS | Encounter Summary ---
[place] [address] Care Team Providers Care O And M Supervisor Name Role Phone Tristen Hunter MD Primary Care Provider [phone] Encounter Details Date Type Department Care Team [...] Recorded In the past 12 months has [employer] electric, gas, oil, or water company [...] AM EST Office Visit Hematology/Oncology at [address] [phone] Cl Hess MD [facility] [place] [address] [address] HEMATOLOGY AND ONCOLOGY [place], [place] [address] 04/09/2024 10:00 AM EST Infusion Hematology Oncology at [address] [phone] 04/23/2024 9:30 AM EST Office Visit Hematology/Oncology at [address] [phone] Cl Hess MD [facility] [place] [address] [address] HEMATOLOGY AND ONCOLOGY [place], [place] [phone] 04/23/2024 10:00 AM EST Infusion Hematology Oncology at [address] [phone] 05/18/2024 4:30 PM EDT TH Visit (TeleHealth) [place] [address] Malachi Rothman MD [facility] [place] [address] 09/24/2024 9:00 AM EDT Office Visit Radiation Oncology at [address] [phone] Ping Moore PA [facility] DR [place] [address] documented as of this encounter Visit Diagnoses Not on filedocumented in this encounter Care Teams O And M Supervisor Relationship Specialty Start Date End Date Tristen Hunter MD [address] [place] [address] [place] [address] PCP - General Family Medicine 07/04/23 documented as of this encounter
--- OUTSIDE RECORDS SUMMARY | 2024-03-26 10:30 | XMS_ITS | Encounter Summary ---
[place] [address] Care Team Providers Care Ladle Watcher Name Role Phone Tristen Hunter MD Primary Care Provider [phone] Encounter Details Date Type Department Care Team (Latest Contact Info) Description 03/26/2024 Travel Social History Tobacco Use Types Packs/Day Years Used Date Smoking Tobacco: Former Cigarettes 4 30 1 963 - 1992 Smokeless Tobacco: Never Alcohol Use Standard Drinks/Week Comments Yes 7 (1 standard drink = 0.6 oz pur e alcohol) [facility] Utilities Answer Date Recorded In the past 12 months has [employer] electric, gas, oil, or water company threatened [...] any time in the past 12 m [facility], were you homeless or living in a [...] AM EST Office Visit Hematology/Oncology at [address] [phone] Cl Hess MD [facility] [place] [address] [address] HEMATOLOGY AND ONCOLOGY [place], [place] [address] 04/09/2024 10:00 AM EST Infusion Hematology Oncology at [address] [phone] 04/23/2024 9:30 AM EST Office Visit Hematology/Oncology at [address] [phone] Cl Hess MD [facility] [place] [address] HEMATOLOGY AND ONCOLOGY [place], [place] [phone] 04/23/2024 10:00 AM EST Infusion Hematology Oncology at [address] [phone] 05/18/2024 4:30 PM EDT TH Visit (TeleHealth) [place] [address] Malachi Rothman MD [facility] [place] [address] 09/24/2024 9:00 AM EDT Office Visit Radiation Oncology at [address] [phone] Ping Moore PA [facility] [place] [address] documented as of this encounter Visit Diagnoses Not on filedocumented in this encounter Care Teams Ladle Watcher Relationship Specialty Start Date End Date Tristen Hunter MD [address] [place] [address] [place] [address] PCP - General Family Medicine 07/04/23 documented as of this encounter
--- OUTSIDE RECORDS SUMMARY | 2024-03-26 10:30 | XMS_ITS | Encounter Summary ---
Author Organization [facility] Address [facility] [place] [address] Care Team Providers Care Field Investigator Name Role Phone Tristen Hunter MD Primary Care Provider [phone] Encounter Details Date Type Department Care Team (Late st Contact Info) Description 02/19/2024 Telephone Hematology/Oncology at [address] [phone] [facility] DR [place] [address] Social History Tobacco Use Types Packs/Day Years Used Date Smoking Tobacco: Former Cigarettes 4 30 1 963 - 1992 Smokeless Tobacco: Never Alcohol Use Standard Drinks/Week Comments Yes 7 (1 standard drink = 0.6 oz pur e alcohol) [facility] Utilities Answer Date Recorded In [...] any time in the past 12 m [facility], were you homeless or living in a chcf (including now)? No 01/24/2024 IPV Inpatient Questions [...] are normal (thoughthis may be difficult to credit collections clerk as he is blind). Patient says I [...] the phone. He has HS snack of Bhutanese yogurt and cookies. Taking one capsule Creon 24 per meal/snack (was taking 3-4 per meal and 1-2 per snack prior to surgery). Medications: Augmentin, amlodipine, aspirin, atorvastatin, carvedilol, chlorthalidone, folic acid, Fiasp sliding scale insulin (unchanged), Tresiba insulin (reduced to 20 units in AM), imdur, Creon 24, lisinopril, omega 9-WVJ-KEJ-fish oil, flomax Labs on 02/02: Na 128L, K 4.6, AlkPhos 186H, AST 19, ALT 44, BUN 23H, BG 433H, Creat 1.2, Alb 3.2, Tbili 1.2H 01/22: A1C 7.0% Nutrition Problem: Inadequate intake related to s/p Whipple procedure as evidenced by ED visit for dehydration on 02/02. Improving Estimated needs based on 86.3 [id number] kcals (25-30 kcal/kg) 86-112 g protein (1-1.3 [...] AM EST Office Visit Hematology/Oncology at [address] [phone] Cl Hess MD [facility] [place] [address] [address] [place] [address] 04/09/2024 10:00 AM EST Infusion Hematology Oncology at [address] [phone] 04/23/2024 9:30 AM EST Office Visit Hematology/Oncology at [address] [phone] Cl Hess MD [facility] [place] [address] [address] [place]AT[place] [address] 04/23/2024 10:00 AM EST Infusion Hematology Oncology at [address] [phone] 05/18/2024 4:30 PM EDT TH Visit (TeleHealth) [place] [address] Malachi Rothman MD [facility] [place] [address] 09/24/2024 9:00 AM EDT Office Visit Radiation Oncology at [address] [phone] Ping Moore PA [facility] [place] [address] documented as of this encounter Visit Diagnoses Not on filedocumented in this encounter Care Teams Field Investigator Relationship Specialty Start Date End Date Tristen Hunter MD [address] [place] [address] [place] [address] PCP - General Family Medicine 07/04/23 documented as of this encounter
--- OUTSIDE RECORDS SUMMARY | 2024-03-26 10:30 | XMS_ITS | Encounter Summary ---
[place] [address] Care Team Providers Care Math Teacher Name Role Phone Tristen Hunter MD Primary Care Provider [phone] Encounter Details Date Type Department Care Team (Late st Contact Info) Description 02/03/2024 Telephone [place] [address] Chen Mcdonald, RN Social History Tobacco Use Types Packs/Day Years Used Date Smoking Tobacco: Former Cigarettes 4 30 1 963 - 1992 Smokeless Tobacco: Never Alcohol Use Standard Drinks/Week Comments Yes 7 (1 standard drink = 0.6 oz pur e alcohol) [facility] Utilities Answer Date Recorded In the past 12 months has [employer], gas, oil, or water [employer] threatened to shut off services in [...] any time in the past 12 m [facility], were you homeless or living in [...] Mcdonald RN - 02/03/2024 11:05 AM EST [facility] called today for clarification of the Amoxicillin prescription. Dr. Moore to correct. documented in this encounter Plan of Treatment Upcoming Encounters Date Type Department Care Team (Late st Contact Info) Description 04/09/2024 9:30 AM EST Office Visit Hematology/Oncology at [address] [phone] Cl Hess MD [facility] [place] [place] [address] [address] HEMATOLOGY AND ONCOLOGY [place], [place] [address] 04/09/2024 10:00 AM EST Infusion Hematology Oncology at [address] [phone] 04/23/2024 9:30 AM EST Office Visit Hematology/Oncology at [address] [phone] Cl Hess MD [facility] [place] [address] [address] HEMATOLOGY AND ONCOLOGY [place], [place] [address] 04/23/2024 10:00 AM EST Infusion Hematology Oncology at [address] [phone] 05/18/2024 4:30 PM EDT TH Visit (TeleHealth) [place] [address] Malachi Rothman MD [facility] [place] [address] 09/24/2024 9:00 AM EDT Office Visit Radiation Oncology at [address] [phone] Ping Moore PA [facility] DR [place] [address] documented as of this encounter Visit Diagnoses Not on filedocumented in this encounter Care Teams Math Teacher Relationship Specialty Start Date End Date Tristen Hunter MD [address] [place] [address] [place] [address] PCP - General Family Medicine 07/04/23 documented as of this encounter
--- OUTSIDE RECORDS SUMMARY | 2024-03-26 10:30 | XMS_ITS | Encounter Summary ---
Author Organization [facility] Address [facility] [place] [address] Care Team Providers Care Clinical Training Specialist Name Role Phone Tristen Hunter MD Primary Care Provider [phone] Encounter Details Date Type Department Care Team (Late st Contact Info) Description 03/26/2024 9:30 AM EST Office Visit Hematology/Oncology at [address] [phone] [facility] DR HEMATOLOGY [place] [address] Arrived Social History Tobacco Use Types Packs/Day Years Used Date Smoking Tobacco: Former Cigarettes 4 30 1 3 - 1992 Smokeless Tobacco: Never Alcohol Use Standard Drinks/Week Comments Yes 7 (1 standard drink = 0.6 oz pur e alcohol) [facility] Utilities Answer Date Recorded In the past 12 months has [employer] electric, gas, oil, or water company threatened [...] time in the past 12 m [facility], were you homeless or living in [...] AM EST Office Visit Hematology/Oncology at [address] [phone] Cl Hess MD [facility] [place] [address] [address] HEMATOLOGY AND ONCOLOGY [place], [place] [phone] 04/09/2024 10:00 AM EST Infusion Hematology Oncology at [address] [phone] 04/23/2024 9:30 AM EST Office Visit Hematology/Oncology at [address] [phone] Cl Hess MD [facility] [place] [address] [address] HEMATOLOGY AND ONCOLOGY [place], [place] [phone] 04/23/2024 10:00 AM EST Infusion Hematology Oncology at [address] [phone] 05/18/2024 4:30 PM EDT TH Visit (TeleHealth) [place] [address] Malachi Rothman MD [facility] [place] [address] 09/24/2024 9:00 AM EDT Office Visit Radiation Oncology at [address] [phone] Ping Moore PA [facility] DR HEMATOLOGY [place] [address] documented as of this encounter Visit Diagnoses Not on filedocumented in this encounter Care Teams Clinical Training Specialist Relationship Specialty Start Date End Date Tristen Hunter MD [address] [place] [address] [place] [address] PCP - General Family Medicine 07/04/23 documented as of this encounter
--- OUTSIDE RECORDS SUMMARY | 2024-03-26 10:30 | XMS_ITS | Encounter Summary ---
Author Organization Pending Sale To [facility] Address [facility] [place] [address] Care Team Providers Care Central Service Supply Distributor Name Role Phone Tristen Hunter MD Primary Care Provider [phone] Reason for Visit * Reason Comments Chemotherapy * Treatment/Therapy Plan Authorization (Routine) - Authorized Specialty Diagnoses / Procedures Referred By Contermelinda t Referred To Contact Diagnoses Malignant neoplasm of prostate Cl Hess MD [facility] [place] [address] Stj Hem Onc Infusion [address] [place] [phone] Referral ID Status Reason Start Date Expiration Date V isits Requested Visits Authorized [id number] Authorized 07/11/2023 07/10/2024 99 107 Encounter Details Date Type Department Care Team (Late st Contact Info) Description 03/12/2024 10:00 AM EST Infusion Hematology Oncology at [address] [phone] Malignant neoplasm of prostate; Hypokalemia Social History Tobacco Use Types Packs/Day Years Used Date Smoking Tobacco: Former Cigarettes 30 1 96 - 1992 Smokeless Tobacco: Never Alcohol Use Standard Drinks/Week Comments Yes 7 (1 standard drink = 0.6 oz pur e alcohol) [facility] Utilities Answer Date Recorded In the [...] in a jail (including now)? No 06/04/2023 Housing Stability Vital Sign Answer Meek e Recorded In the last 12 months, was t here a time when you were not able to pay the mortgage or rent on time? No 01/24/2024 In the past 12 months, how m any times have you moved where you were living? 0 01/24/2024 At any time in the past [address] [facility], were you homeless or living in a jail (including now)? No 01/24/2024 IPV Inpatient Questions [...] of this encounter Progress Notes * Olga Arshad RN - 03/12/2024 10:00 AM EST INFUSION THERAPY ADMINISTRATION NOTES DIAGNOSIS: Pancreatic Cancer CYCLE #:9 REASON FOR VISIT: Chemotherapy SUBJECTIVE Wero offers no complaints. OBJECTIVE LAB DATA: Drawn today and adequate for treatment IV ACCESS: mediport accessed flushes well with brisk blood return Pre administration: Chemotherapy orders independently verified for drug name, route, and dosage per patient's height, weight and BSA by Olga Arshad RN & pharmacist REACTIONS (DESCRIPTION, TIME, INTERVENTION AND EFFECTIVENESS) none ASSESSMENT Wero was awake, alert and tolerated treatment well. PLAN Return to clinic per routine. INFUSION THERAPY ADMINISTRATION NOTES DIAGNOSIS: CYCLE: REASON FOR VISIT: Continuous 5FU home infusion and reaccess mediport CADD pump provided by [employer], pump was double checked by Olga Mcgraw and Maria C Carreon RN prior to connection. Pump was checked 15min after connection and adequate was infused. Patient was awake, alert and tolerated treatment well. PLAN [facility] service to come for disconnect on 03/14/24 at 1415. [phone] Patient is aware to call clinic with any questions and concerns M-F 8am to 5pm and to call [employer] with any questions and concerns in the off hours. documented in this encounter Plan of Treatment Upcoming Encounters Date Type Department Care Team (Late st Contact Info) Description 04/09/2024 9:30 AM EST Office Visit Hematology/Oncology at [address] [phone] Cl Hess MD [facility] [place] [address] HEMATOLOGY AND ONCOLOGY [place], [place] [address] 04/09/2024 10:00 AM EST Infusion Hematology Oncology at [address] [phone] 04/23/2024 9:30 AM EST Office Visit Hematology/Oncology at [address] [phone] Cl Hess MD [facility] [place] [place] [address] [address] HEMATOLOGY AND ONCOLOGY [place], [place] [id number] 04/23/2024 10:00 AM EST Infusion Hematology Oncology at [address] [phone] 05/18/2024 4:30 PM EDT TH Visit (TeleHealth) [place] [address] Malachi Rothman MD [facility] [place] [address] 09/24/2024 9:00 AM EDT Office Visit Radiation Oncology at [address] [phone] Ping Moore PA [facility] DR HEMATOLOGY [place] [address] documented as of this encounter Visit Diagnoses Diagnosis Malignant neoplasm of prostate Hypokalemia Hypopotassemia documented in this encounter Administered Medications Inactive Administered Medications - up to 3 most recent administrations Medication Order MAR Action Action Date Dose Rate Site aprepitant (Cinvanti) (7.2 mg/mL) injection emulsion 130 mg 130 mg, Intravenous, Administer over 2 Minutes, ONCE, 1 dose, On Ammy 03/12/24 at 1215, Alternative administration of IV push over 2 minutes is a recommendation from the poultry husbandry teacher. Administer prior to chemotherapy., Routine Given 03/12/2024 12:07 PM EST 130 mg atropine (0.1 mg/mL) injection 0.5 mg 0.5 mg, Intravenous, Administer over 1 Minutes, ONCE, 1 dose, On Ammy 03/12/24 at 1215, Administer prior to IRINOtecan, Routine Given 03/12/2024 2:18 PM EST 0.5 mg dexAMETHasone (Decadron) tablet 10 mg 10 mg, Oral, ONCE, 1 dose, On Ammy 03/12/24 at 1245, Administer prior to chemotherapy, Routine Given 03/12/2024 12:07 PM EST 10 mg fluorouraciL (AdruciL) in sodium chloride 0.9% 138 mL infusion (46 Hour - For Home Use) 5,160 mg 5,160 mg (2,400 mg/m2/dose ? 2.15 m2 Treatment Plan BSA from Recorded weight), Intravenous, ONCE, 1 dose, On Ammy 03/12/24 at 1645, Administer over 46 Hours, Warning Vesicant/Irritant Medication To be infused via an ambulatory infusion CADD Colon pump continuously IV at 3 mL/hr for 46 hours. Pump contains a 46 hour supply and provides a daily dose of 1,200 mg/m2/day = 2,400 mg/m2 IV over 46 hours. Given 03/12/2024 4:05 PM EST 5,160 mg 3 mL/hr IRINOtecan (Camptosar) 220 mg in dextrose 5% 511 mL infusion 220 mg (rounded from 225.75 mg = 105 mg/m2/dose ? 2.15 m2 Treatment Plan BSA from Recorded weight), Intravenous, ONCE, 1 dose, On Ammy 03/12/24 at 1315, Administer over 90 Minutes, Warning Vesicant/Irritant Medication Administer 30 minutes after the start of the leucovorin. New Bag 03/12/2024 2:20 PM EST 220 mg 340.7 mL/hr leucovorin (Wellcovorin) 350 mg in dextrose 5% 85 mL infusion 350 mg, Intravenous, ONCE, 1 dose, On Ammy 03/12/24 at 1315, Administer over 120 Minutes, Administer upon completion of OXALIplatin infusion. Do not administer at a rate faster than 160 milligrams/minute. Restarted 03/12/2024 2:19 PM EST 42.5 mL/hr New Bag 03/12/2024 1:48 PM EST 350 mg 42.5 mL/hr OXALIplatin (Eloxatin) 150 mg in dextrose 5% 280 mL infusion 150 mg (rounded from 146.2 mg = 68 mg/m2/dose ? 2.15 m2 Treatment Plan BSA from Recorded weight), Intravenous, ONCE, 1 dose, On Ammy 03/12/24 at 1315, Administer over 85 Minutes, Administer first. Compatible with dextrose-containing solution only. Warning Vesicant/Irritant Medication New Bag 03/12/2024 12:17 PM EST 150 mg 197.6 mL/hr palonosetron (Aloxi) (0.05 mg/mL) injection 0.25 mg 0.25 mg, Intravenous, ONCE, 1 dose, On Amym 03/12/24 at 1215, Administer over 30 seconds., Routine Given 03/12/2024 12:07 PM EST 0.25 mg potassium chloride 20 mEq in sterile water 100 mL infusion 20 mEq, Intravenous, ONCE, 1 dose, On Ammy 03/12/24 at 1245, Administer over 60 Minutes, Doses of 20 mEq or greater require a Central Line Warning Vesicant/Irritant Medication potassium chloride 20 meq/100 mL bags must be infused through a CENTRAL LINE New Bag 03/12/2024 12:35 PM EST 20 mEq 100 mL/hr documented in this encounter Care Teams Central Service Supply Distributor Relationship Specialty Start Date End Date Tristen Hunter MD [address] [place] [address] [place] [address] PCP - General Family Medicine 07/04/23 documented as of this encounter
--- OUTSIDE RECORDS SUMMARY | 2024-03-26 10:30 | XMS_ITS | Encounter Summary ---
[place] [address] Care Team Providers Care Selling Underwriter Name Role Phone Tristen Hunter MD Primary Care Provider [phone] Reason for Visit * Reason Onset Date Comments Follow-up 03/20/2024 Pt needs labs pr ior to telehealth visit 03/24/24 Encounter Details Date Type Department Care Team (Late st Contact Info) Description 03/20/2024 Telephone Radiation Oncology at [address] [phone] Elisha Zamarripa, RN Follow-up (Pt needs labs prior to telehealth visit 03/24/24) Social History Tobacco Use Types Packs/Day Years Used Date Smoking Tobacco: Former Cigarettes 3 1992 Smokeless Tobacco: Never Alcohol Use Standard Drinks/Week Comments Yes 7 (1 standard drink = 0.6 oz pur e alcohol) [facility] Utilities Answer Date Recorded In the past 12 months has [employer] electric, gas, oil, or water company threatened [...] time in the past 12 m [facility], were you homeless or living in a nursing home (including now)? No 01/24/2024 DH IPV [...] encounter Miscellaneous Notes * Telephone Encounter - Elisha Zamarripa RN - 03/20/2024 10:18 AM EST Called patient to remind about getting labs done prior to telehealth visit with Ping Moore on 03/24/24. Mr. Melo states that he will try to get labs done today or on Saturday03/23/24. He was encouraged to call with any questions/concerns. This RN was updated by another nursing staff member that the 03/24 appointment will be changed to 03/26 as patient has an appointment with Dr. Hess that day. He can wait to get his labs. Left vm t inform and will call again to try to talk to him. documented in this encounter Plan of Treatment Upcoming Encounters Date Type Department Care Team (Late st Contact Info) Description 04/09/2024 9:30 AM EST Office Visit Hematology/Oncology at [address] [phone] Cl Hess MD [facility] [place] [address] [address] [place] [address] 04/09/2024 10:00 AM EST Infusion Hematology Oncology at [address] [phone] 04/23/2024 9:30 AM EST Office Visit Hematology/Oncology at [address] [phone] Cl Hess MD [facility] [place] [address] [address] [place] [address] 04/23/2024 10:00 AM EST Infusion Hematology Oncology at [address] [phone] 05/18/2024 4:30 PM EDT TH Visit (TeleHealth) [place] [address] Malachi Rothman MD [facility] [place] [address] 09/24/2024 9:00 AM EDT Office Visit Radiation Oncology at [address] [phone] Ping Moore PA [facility] DR [place]AT[place] [address] documented as of this encounter Visit Diagnoses Not on filedocumented in this encounter Care Teams Selling Underwriter Relationship Specialty Start Date End Date Tristen Hunter MD [address] [place] [address] [place] [address] PCP - General Family Medicine 07/04/23 documented as of this encounter
--- OUTSIDE RECORDS SUMMARY | 2024-03-26 10:30 | XMS_ITS | Encounter Summary ---
Author Organization [facility] [place] [address] Care Team Providers Care Fringe Knotter Name Role Phone Tristen Hunter MD Primary Care Provider [phone] Encounter Details Date Type Department Care Team (Late st Contact Info) Description 02/18/2024 1:00 PM EST Office [place] [address] Charu Balbuena MD [facility] [place] [address] Exocrine pancreatic insufficiency Social History Tobacco Use Types Packs/Day Years Used Date Smoking Tobacco: Former Cigarettes 4 30 1 3 - 1992 Smokeless Tobacco: Never Alcohol Use Standard Drinks/Week Comments Yes 7 (1 standard drink = 0.6 oz pur e alcohol) [facility] Utilities Answer Date Recorded In the past 12 months has [employer] electric, gas, oil, or water company threatened [...] any time in the past 12 m [facility], were you homeless or living in [...] AM EST Office Visit Hematology/Oncology at [address] [phone] Cl Hess MD [facility] [place] [place] [address] [address] HEMATOLOGY AND ONCOLOGY [place], [place] [phone] 04/09/2024 10:00 AM EST Infusion Hematology Oncology at [address] [phone] 04/23/2024 9:30 AM EST Office Visit Hematology/Oncology at [address] [phone] Cl Hess MD [facility] [place] [address] HEMATOLOGY AND ONCOLOGY [place], [place] [address] 04/23/2024 10:00 AM EST Infusion Hematology Oncology at [address] [phone] 05/18/2024 4:30 PM EDT TH Visit (TeleHealth) [place] [address] Malachi Rothman MD [facility] [place] [address] 09/24/2024 9:00 AM EDT Office Visit Radiation Oncology at [address] [phone] Ping Moore PA [facility] DR [place] [address] documented as of this encounter Visit Diagnoses Diagnosis Exocrine pancreatic insufficiency Other specified disease of pancreas documented in this encounter Care Teams Fringe Knotter Relationship Specialty Start Date End Date Tristen Hunter MD [address] [place] [address] [place] [address] PCP - General Family Medicine 07/04/23 documented as of this encounter
--- OUTSIDE RECORDS SUMMARY | 2024-03-26 10:30 | XMS_ITS | Encounter Summary ---
[place] [address] Care Team Providers Care Stem Threshing Machine Operator Name Role Phone Tristen Hunter MD Primary Care Provider [phone] Reason for Visit * Reason Onset Date Comments Follow-up 02/04/2024 Encounter Details Date Type Department Care Team (Late st Contact Info) Description 02/04/2024 Telephone Hematology/Oncology at [address] [phone] Tammy Hooks, RN Follow-up Social [...] a group home (including now)? No 06/04/2023 Housing Stability [...] any time in the past 12 m [facility], were you homeless or living in a group home (including now)? No 01/24/2024 DH IPV [...] AM EST Office Visit Hematology/Oncology at [address] [phone] Cl Hess MD [facility] [place] [address] [place] [address] 04/09/2024 10:00 AM EST Infusion Hematology Oncology at [address] [phone] 04/23/2024 9:30 AM EST Office Visit Hematology/Oncology at [address] [phone] Cl Hess MD [facility] [place] [address] [address] [place] [address] 04/23/2024 10:00 AM EST Infusion Hematology Oncology at [address] [phone] 05/18/2024 4:30 PM EDT TH Visit (TeleHealth) Radiation [place] [address] Malachi Rothman MD [facility] [place] [address] 09/24/2024 9:00 AM EDT Office Visit Radiation Oncology at [address] [phone] Ping Moore PA [facility] HEMATOLOGY [place] [address] documented as of this encounter Visit Diagnoses Not on filedocumented in this encounter Care Teams Stem Threshing Machine Operator Relationship Specialty Start Date End Date Tristen Hunter MD [address] [place] [address] [place] [address] PCP - General Family Medicine 07/04/23 documented as of this encounter
--- OUTSIDE RECORDS SUMMARY | 2024-03-26 10:32 | XMS_ITS | Encounter Summary ---
[place] [address] Care Team Providers Care Paunch Trimmer Name Role Phone Tristen Hunter MD Primary Care Provider [phone] Reason for Visit * Auth/Cert (Routine) Specialty Diagnoses / Procedures Referred By Contac t Referred To Contact Diagnoses PANCREAS CANCER Procedures PRO PART REMV PANC, PROX+REMV DUOD+ANAST @IPPLE PROCEDURE (WRVU 52.84) Tor Balbuena MD [facility] [place] [address] [facility] Referral ID Status Reason Start Date Expiration Date Visits Re quested Visits Authorized [id number] 1 1 Encounter Details Date Type Department Care Team (Late st Contact Info) Description 01/23/2024 6:12 AM EST - 02/01/2024 12:51 PM EST Hospital Encounter Surgical Unit Level 4 [place] [id number] Tor Balbuena MD [facility] [place] [address] Malignant neoplasm of head of pancreas (Primary [...] in a jail (including now)? No 01/24/2024 DH IPV Inpatient [...] bovine pericardial patch pledgets and internalized 5 Kuwaiti pancreatic duct stent. The bile duct was quite dilated measuring about 15 mm in an end to side hepaticojejunostomy anastomosis was created. Finally in order to restore intestinal continuity a defect was created in the transverse mesocolon to the left of the middle colic vessels to allow the jejunum to be brought up in his retromesenteric location into the supracolic abdomen where a fyps-ym-lgsy, retrogastric Billroth II type gastrojejunostomy was created. The 19 Kuwaiti Kd drain was placed into Morison's pouch and then passed posterior to the bile duct anastomosis and then anterior to the pancreatic anastomosis. The omental pedicle flap created from the falciform ligament was used to cover the right gastric artery and GDA stumps. Hospital Course: Wero Sadler was admitted to [facility] on 01/23/2024 via the Same [...] - Date/Time Tissue Culture, Aerobic & Anaerobic [[id number]] (Abnormal) Collected: 01/23/241053 Lab Status: Final result Specimen: Tissue from Bile Duct Updated: 01/27/24 1501 Narrative: The following orders were created for panel order Tissue Culture, Aerobic & Anaerobic. Procedure Abnormality Status --------- ------ Tissue Culture, Aerobic ...[[id number]] Final result Anaerobic Culture[[id number]] Abnormal Final result Please view results for these tests on the individual orders. Anaerobic Culture [[id number]] (Abnormal) Collected: 01/23/241053 Lab Status: Final result Specimen: Tissue from Bile Duct Updated: 01/27/24 1501 Anaerobic Culture Rare Bacteroides fragilis group Tissue Culture, Aerobic Only [[id number]] Collected: 01/23/241053 Lab Status: Final result Specimen: [...] Home VNA: Yes HOME HEALTH CARE AGENCY: [facility] [address] [place] [id number] Discharge Conditions/Prognosis: Stable Discharge Medications: The following [...] 30 mg Quantity: 30 tablet Refills: 12 hwvlun-jfvmvhti-refufuq DR 24,000-76,000 -120,[address] capsule Commonly known as: Creon 24 Take 3 per meal three times daily and 2 per snack three times daily (15 capsules/day) Quantity: 450 capsule Refills: 11 lisinopriL 40 mg tablet Commonly known as: Zestril Take 1 tablet by mouth daily. Lisinopril (hold for SBP <130) 40 mg Refills: 0 omega 3-sqd-mve-fish oil 250-350-1,000 mg Capsule Take 1,000 mg [...] a dye used during vascular procedure at [facility] in [place]: shaking Has tolerated MRI and CT contrast. Pazopanib Other (See Comments) UGT1A1 Poor Metabolizer. See Clinical Pharmacist Note from 07/04/23 for information. Sacituzumab Govitecan-Hziy Other (See Comments) UGT1A1 Poor Metabolizer. See Clinical Pharmacist Note from 07/04/23 for dosing recommendations. Scheduled Appointments: Future Appointments Date Time Provider Department Center 02/07/2024 12:30 PM NURSE, GENERAL SURGERY [facility] 02/18/2024 12:15 PM LAB, THREE L Lab 3L ISATU JEANNIENIMO 02/18/2024 1:00 PM Tor Balbuena MD [facility] 02/18/2024 2:[address] [facility] 02/20/2024 10:00 AM Cl Hess MD [facility] [place] [facility] 03/24/2024 9:00 AM Ping Moroe PA [facility] [place] [facility] 05/18/2024 4:30 PM Malachi Rothman MD [facility] [place] [facility] Outpatient Services/Studies: CBC (with Diff) Standing Status: [...] the nurses in the Surgery Clinic at [phone]. - During the night time hours call the hospital process plant operator [phone] and ask to speak to the general surgery resident radiocommunications technician. Instructions for when you are home: Diet: Ok to eat a carb control diet as tolerated. It is important to try to eat as much calories and protein as possible during recovery to aid in healing. You frequently may feel full easily or evenhave nausea. Take small meals at first and pace yourself. You may supplement your diet with nutritional shakes/drinks (Ensure, Glenvil Instant Breakfast, Boost) if possible. Remember to [...] has been scheduled with Dr. Balbuena's office [phone]. In most cases Dr. Balbuena will order blood work to be done on the day of your post op clinic appointment. This decision is made on a ihim-vh-ucuj basis so ask if this is necessary and plan to come to [facility] [place] ior to the appointment to get the blood work done in 3L as instructed. - Of course, if you are being discharged on a weekend and Dr. Balbuena's office is closed then call the office [phone] first thing Saturday. Future Appointments Date Time Provider Department Center 02/07/2024 12:30 PM NURSE, GENERAL SURGERY [facility] 02/18/2024 12:15 PM LAB, THREE L Lab 3L ISATU RITCHIE 02/18/2024 1:00 PM Tor Balbuena MD [facility] 02/18/2024 2:[address] [facility] 02/20/2024 10:00 AM Cl Hess MD [facility] [place] [facility] 03/24/2024 9:00 AM Ping Moore PA [facility] [place] [facility] 05/18/2024 4:30 PM Malachi Rothman MD [facility] A telephone follow-up visit has been requested with our outpatient primary school teacher librarian Radha Sweet RD whowill call you to [...] speak with the surgery nurses.The number is [phone]. - During the night call the [facility] process plant operator and ask to speak to the surgery resident radiocommunications technician for general surgery. General Instructions Diabetes Discharge [...] juice or regular (not diet) soda 6 T[employer] small box of raisins 4 glucose tablets [...] 2 tablespoons of dried fruit. Milk and dk-flqjd-dlqfu yogurt have 15 grams of carbs in a serving. A serving is 1 cup of milk or 3/4 cup (6 oz) of gb-gigsr-okdcd yogurt. Starchy vegetables have 15 grams of carbs in a serving. A serving is ?? cup of mashed potatoes or sweet potato; 1 cup winter squash; ?? of a small baked potato; ?? cup of cooked beans; or ?? cup cooked corn or green peas. Learn how much carbs to eat each day and at each meal. A dietitian or certified welding inspector can teach you how to keep track [...] PM NURSE, GENERAL SURGERY General Surgery at [facility] Arrive at: Production Line Area [phone] 02/18/2024 12:15 PM LAB, THREE L Lab 3L [facility] Arrive at: Production Line Area [phone] 02/18/2024 1:00 PM Tor Balbuena MD General Surgery at [facility] Arrive at: Production Line Area [phone] 02/18/2024 2:[address] General Surgery at [facility] Arrive at: Production Line Area [phone] 02/20/2024 10:00 AM Yessi Renee APRN; Cl Hess MD Hematology/Oncology at [facility] Arrive at: [facility] door at end of hallway [phone] 03/24/2024 9:00 AM Ping Moore PA Radiation Oncology at [facility] Arrive at: Home [phone] Please do not come in for this visit. Your provider will call you at the number you provided. 05/18/2024 4:30 PM Malachi Rothman MD Radiation Oncology at [facility] Arrive at: Home [phone] Please do not come in for this visit. Your provider will call you at the number you provided. Future Orders Complete By Expires CBC (with Diff) [NBR761 Custom] 03/01/2024 01/30/2025 Process Instructions: INCLUDES: WBC, RBC, Hgb, Hct, Platelets, RBC Indices and Differential Scheduling Instructions: Comments: Questions: Comprehensive metabolic panel Non-fasting [LAB17 Custom] 03/01/2024 (Approximate) 01/30/2025 Process Instructions: INCLUDES: Calcium, T Protein, Albumin, AST, ALT, Alk Phos, T Bili, BUN, Creat, GFR, Glucose, Lytes. Scheduling Instructions: Comments: Questions: Fasting required?: Non-fasting Magnesium [BXF223 Custom] 03/01/2024 01/30/2025 Process Instructions: Scheduling Instructions: Comments: Questions: Phosphorus [RKL429 Custom] 03/01/2024 01/30/2025 Process Instructions: Scheduling Instructions: Comments: Questions: Prealbumin [GIT853 Custom] 03/01/2024 01/30/2025 Process Instructions: Scheduling Instructions: Comments: Questions: [facility] Devices [EQ161 Custom] As directed Process Instructions: Scheduling Instructions: Comments: Wero Sadler [address] [facility] [address] Telephone Information: Diagnosis: deconditioning with Unsteady gait Significant weakness, ataxia or gait abnormality Patient's: Hgt: Ht Readings from Last 1 Encounters: 01/23/24 : 175.3 cm (5' 9) Wgt: Wt Readings from Last 1 Encounters: 01/31/24 : 87.5 kg (193 lb) VENDOR: [facility] Ordering: Front wheel walker [facility]iver [facility] room #: 425-A Questions: Device Needed: WALKER (E0143) Patient Height (cm): 175.3 cm (5' 9) Patient Weight: 87.5 kg (193 lb) Diagnosis: Pancreatic adenocarcinoma Discharge References/Attachments: Discharge References/Attachments None Follow-up Recommendations for Providers: Medication changes:Augmentin for 2 days, continue pancreatic Enzymes/daily PPI CC: Tristen Hunter MD [phone] Signed: Tamia Rodriguez MD [facility] Service Team Pager #[phone] 02/01/2024 7:30 AM For questions regarding this document or issues relating to this hospitalization on the [facility] Service, please contact Tor Balbuena MD's office at [phone] documented in this encounter Discharge Instructions * Discharge Instructions* Dena Dinh, ORTHOPEDIC PHYSICIAN ASSISTANT - 01/31/2024 1:52 PM EST Diabetes Discharge [...] 2 tablespoons of dried fruit. Milk and fl-ekxab-sgnzs yogurt have 15 grams of carbs in a serving. A serving is 1 cup of milk or 3/4 cup (6 oz) of lx-webnu-abcmj yogurt. Starchy vegetables have 15 grams of carbs in a serving. A serving is ?? cup of mashed potatoes or sweet potato; 1 cup winter squash; ?? of a small baked potato; ?? cup of cooked beans; or ?? cup cooked corn or green peas. Learn how much carbs to eat each day and at each meal. A dietitian or certified welding inspector can teach you how to keep track [...] nurses in the 4 Surgery Clinic at [phone]. - During the night time hours call the hospital process plant operator [phone] and ask to speak to the general surgery resident radiocommunications technician. Instructions for when you are home: Diet: Ok to eat a carb control diet as tolerated. It is important to try to eat as much calories and protein as possible during recovery to aid in healing. You frequently may feel full easily or evenhave nausea. Take small meals at first and pace yourself. You may supplement your diet with nutritional shakes/drinks (Ensure, Glenvil Instant Breakfast, Boost) if possible. Remember to [...] Incision: The skin incision(s) is closed with [place] Usually the jay are removed anywhere from7-14 [...] has been scheduled with Dr. Balbuena's office [phone]. In most cases Dr. Balbuena will order blood work to be done on the day of your post op clinic appointment. This decision is made on a qcia-zw-dqye basis so ask if this is necessary and plan to come to [facility] [place] i[place] to the appointment to get the blood work done in 3L as instructed. - Of course, if you are being discharged on a weekend and Dr. Balbuena's office is closed then call the office [phone] first thing Saturday. Future Appointments Date Time Provider Department Center 02/07/2024 12:30 PM NURSE, GENERAL SURGERY [facility] 02/18/2024 12:15 PM LAB, THREE L Lab 3L ISATU RITCHIE 02/18/2024 1:00 PM Tor Balbuena MD [facility] 02/18/2024 2:[address] [facility] 02/20/2024 10:00 AM Cl Hess MD [facility] [place] [facility] 03/24/2024 9:00 AM Ping Moore PA [facility] [place] [facility] 05/18/2024 4:30 PM Malachi Rothman MD [facility] A telephone follow-up visit has been requested with our outpatient primary school teacher librarian Radha Sweet RD whowill call you to [...] speak with the surgery nurses.The number is [phone]. - During the night call the [facility] process plant operator and ask to speak to the surgery resident radiocommunications technician for general surgery. documented in this encounter Medications at Time of Discharge Medication Sig Dispensed Refills Start Date End Date fixqum-ngnaiwta-uui lase DR (Creon 24) 24,000-76,000 -120,000 unit [...] 20 mg by mouth as needed. 05/20/2023 omega 8-zxe-vkd-fish oil 250-350-1,000 mg Capsule Take 1,000 mg [...] <130) 11/18/2021 timoloL (Timoptic) 0.5 % Drops 1 drop 2 times daily. 08/29/2021 erythromycin (Romycin) 5 mg/gram (0.5 [...] treatment team, confirmed ride with [facility] for machine operator picker at the main entrance at noon today. Abby Melgoza PhD, [facility] Pager [phone] * Dena Dinh APRN - 01/31/2024 8:15 [...] 2 tablespoons of dried fruit. Milk and iq-rjlna-rscej yogurt have 15 grams of carbs in a serving. A serving is 1 cup of milk or 3/4 cup (6 oz) of pu-vkypb-fgrge yogurt. Starchy vegetables have 15 grams of carbs in a serving. A serving is ?? cup of mashed potatoes or sweet potato; 1 cup winter squash; ?? of a small baked potato; ?? cup of cooked beans; or ?? cup cooked corn or green peas. Learn how much carbs to eat each day and at each meal. A dietitian or certified welding inspector can teach you how to keep track [...] cheese, and peanut butter. Dena Dinh APRN [facility] Endocrinology Diabetes Management Pager [phone] Weekends please page [phone] 50 minutes were spent over the course [...] ; Age: 11 1950; 74 y.o. Room/Bed: [address] [place], [place] [address] Today's Date: 01/31/24 ID: Wero Sadler is [...] B fragilis - cont empiric zosyn started d/c home on augmentin for total 7 [...] [facility] Service Team Pager #[phone] 01/31/24 8:07 AM * Earl Reina - 01/30/2024 2:21 PM EST Client Project Coordinator Encounter Note Patient Name: Wero Sadler : [id number] MR#: [id number] Admit Date: 01/23/2024 6:12 AM Hospital Day 7 days Narrative:Visited to introduce and assess acceptance of Client Project Coordinator services. Assessment: Patient was awake, alert, oriented and in bed. Patient coping positively with stresses of illness/hospitalization at this time. Patient says that he is hoping to get better and seems to be thankful and taking one day at time. Intervention and Outcome:Provided emotional, spiritual support and listening presence. Client Project Coordinator services accepted. Conversation to build trusting relationship. Provided pastoral presence. Provided spiritual guidance. Follow-up: yes Time in Direct Care:08 Mins Earl Reina 01/30/2024 * Nimisha Mahoney, PT - 01/30/2024 9:54 AM EST Physical Therapy Note Treatment Number PT: (P) 4 Patient profile: Per MD note: Wero Sadler is a 74 y.o. male with PMH of colon cancer ([id number]), prostate cancer (s/p androgen deprivation and RT), [...] (per initial PT evaluation) lives alone in [place], [place]; has friends that grocery shop for him and prepare meals; also receives Zkyfj-tf-Czgfss; uses [facility] for transportation as needed; patient [...] Therapy: (P) 19 Billing Code: (P) TE-Fx1 Nmiisha Mahoney PT/ROME WHITMAN Pager: [phone] Physical Therapy Inpatient Rehabilitation Department * Wilton Moore MD - 01/30/2024 7:35 AM EST [facility] Inpatient Progress Note Patient Name: Wero Sadler ; Age: 11 1950; 74 y.o. Room/Bed: [address] [place], [place] [address] Today's Date: 01/30/24 ID: Wero Sadler is [...] [facility] Service Team Pager #[phone] 01/30/24 7:35 AM * Samra Moss, PT - 01/29/2024 12:10 PM EST Physical Therapy Note Treatment Number PT: 3 Patient profile: Per MD note: Wero Sadler is a 74 y.o. male with PMH of colon cancer ([id number]), prostate cancer (s/p androgen deprivation and RT), [...] (per initial PT evaluation) lives alone in [place], [place]; has friends that grocery shop for him and prepare meals; also receives Fldfs-lc-Iwjzvq; uses [facility] for transportation as needed; patient [...] Moss PT, Doctor of Physical Therapy Pager: [phone] Physical Therapy Inpatient Rehabilitation Department * Heavenly [...] sign off at this time. Please page [phone] with any epidural-related questions or concerns. INACHO RN, have performed the documentation for this encounter in the presence of andacting as a scribe for Dr. Adam Muñoz. Anesthesia Staff Patient seen and examined on daily rounds. I agree with the above assessment and plan Adam Muñoz MD [id number] APMS Nurse: Nacho Oreilly RN Attending Physician:: Adam Muñoz MD * Wilton Moore MD - 01/29/2024 6:39 AM EST [facility] Inpatient Progress Note Patient Name: Wero Sadler ; Age: 11 1950; 74 y.o. Room/Bed: [address] [place], [place] [address] Today's Date: 01/29/24 ID: Wero Sadler is [...] [facility] Service Team Pager #[phone] 01/29/24 8:39 AM * Nina Tipton RN [...] 11 1950; 74 y.o. [facility] Today's Date: 01/28/24 ID: Wero Sadler is [...] [facility] Service Team Pager #[phone] 01/28/24 9:34 AM * Heavenly Martinez APRN [...] with provider CASA Dominguez - Surg Onc 5019 . Objective Temp: [36.8 ??C (98.2 ??F)-37.9 [...] assessment and plan. Adam Muñoz MD [address] [facility] Nurse: Nacho Oreilly RN Fellow:: Kolton Morejon DO Attending Physician:: Adam Muñoz MD * Verenice Pérez RN - 01/27/2024 4:24 PM EST OUTCOME EVALUATION NOTE: OUTCOME SUMMARY: Pt AxOX4, VSS except one high BP prn labetalol given See TAMEKA HUTSONR with frequent PVCs on tele, complains of [...] with hyaluronidase Social History: lives alone in [place], [place]; has friends that grocery shop for him and prepare meals; also receives Cwegd-ty-Syuknv; uses [facility] for transportation as needed; patient [...] all needs in reach (paddle call mcdonnell, PAPER SALES REPRESENTATIVE, phone) following visit. Assessment: Wero Sadler was seen today for physical therapy treatment session for continuation of POC. Mauri demonstrated improvement in transfers and gait and was able to initiate stair management today, using a footstool next to his bed. He tolerated all activity well and did not need to use his PAPER SALES REPRESENTATIVE during this session. He remains with NGT [...] mobility, gait, stairs ABBY CANNON, PT Pager: [phone] Physical Therapy Inpatient Rehabilitation Department Heavenly Cabello APRN - 01/27/2024 10:21 AM EST .Follow [...] had ROBF, no gas or movements (LBM MASTIC SPRAYER). The epidural insertion site is clean, and [...] as a scribe for Dr. Manolo Gamboa. AP[facility] Nurse: Zuleima Aguirre RN Fellow:: Kolton Morejon DO Attending Physician:: Manolo Meza MD I performed the above scribed service and agree with the accuracy of the note. Manolo Meza MD * Tor Balbuena MD - 01/27/2024 7:00 AM EST [facility] Inpatient Progress Note Patient Name: Wero Sadler ; Age: 11 1950; 74 y.o. Room/Bed: [facility] Today's Date: 01/27/24 ID: Wero Sadler is [...] Skin: warm, dry Labs: Recent Labs 01/27/24 004 WBC 4.35 HGB 8.5* HCT 25.2* PLATELET [...] [facility] Service Team Pager #[phone] 01/27/24 5:48 AM HPB surgery attending addendum [...] ; Age: 11 1950; 74 y.o. Room/Bed: [address] Today's Date: 01/26/24 ID: Wero Sadler [...] to suction. If less than 200cc, page [phone] to discuss NGT removal and advancement to [...] [facility] Service Team Pager #[phone] 01/26/24 8:12 AM * Nafisa Wu RN [...] off going RN. Special call light, and PAPER SALES REPRESENTATIVE button in place within reach. Fall precautions, [...] ; Age: 11 1950; 73 y.o. Room/Bed: [address] Today's Date: 01/25/24 ID: Wero Sadler is [...] [facility] Service Team Pager #[phone] 01/25/24 8:08 AM * Abby Cannon, PT [...] Claudication Colon adenocarcinoma 2008 recieved chemo in [place] Coronary artery disease Coronary artery dissection CPAP [...] 0.3) performed by Tor Balbuena MD at [facility] OSC PRO ARTHROPLASTY ACETABULAR/PROX FEM PROSTC AGRFT/ALGRFT Left 10/10/2020 TOTAL HIP ARTHROPLASTY - POSTERIOR (WRVU 20.72) performed by Ismael Wu MD at [facility] MAIN OR PRO ARTHROPLASTY ACETABULAR/PROX FEM PROSTC AGRFT/ALGRFT Right 11/17/2021 TOTAL HIP ARTHROPLASTY - POSTERIOR (WRVU 20.72) performed by Ismael Wu MD at [facility] MAIN OR PRO ENDOSCOPIC US EXAM, ESOPH N/A 07/02/2023 UPPER EUS- ENDOSCOPIC ULTRASOUND (WRVU 3.47) performed by Pako Lopez MD at [facility] ENDOSCOPY PRO ERCP, W/REMOVAL STONE, TARYN/PANCR DUCTS 07/02/2023 ERCP W/REMOVAL CALCULI/DEBRIS FROM BILARY/PANCREATIC DUCT(S) (WRVU 6.63) performed by Pako Lopez MD at [facility] ENDOSCOPY PRO ERCP,DIAGNOSTIC N/A 07/02/2023 ERCP (WRVU 5.85) performed by Pako Lopez MD at [facility] ENDOSCOPY PRO EXPLORATION NOT FOLLOWED BY SURG NECK ARTERY Right 07/14/2021 @EXPLORATION NOT FOLLOWED BY SURGICAL REPAIR, ARTERY; NECK (CAROTID OR SUBCLAVIAN) (WRVU 9.19) performed by Basim Barr MD at [facility] MAIN OR PRO INSERT TUNNELED CV CATH W SUBQ PORT, AGE 5 YRS OR OLDER N/A 07/05/2023 MARIO\AMELIA.CATHETER,TUNNELED, WITH SQ PORT OR PUMP OVER 5YR (WRVU 5.79) performed by Maggi Balbuena MD at [facility] OSC PRO LAP, DIAGNOSTIC ABDOMEN N/A 07/05/2023 LAPAROSCOPY, DIAGNOSTIC, ABDOMEN (WRVU 5.14) performed by Tor Balbuena MD at [facility] OSC PRO LASER VAPORIZATION SURGERY PROSTATE, COMPLETE Midline 02/02/2021 CYSTO, LASER TURP (WRVU 12.15) performed by Cayetano Engle MD at [facility] MAIN OR PRO PLACE TRANSCATHETER STENT, CCA W EMBOLIC PROECT Right 07/14/2021 @TRANSCATH INTRAVASCULAR STENT,CAROTID,PERC,W\EMBOLIC PROT. 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 Room/Bed: [facility] Today's Date: 01/24/24 ID: Wero Sadler is [...] T bili 1.5 Serum amylase 16 / amylase pending Intra-op bile fluid 01/22: No [...] Hepato Pancreato Biliary Surgery Service Team Pager #[phone] 01/24/24 10:51 AM * Manolo Meza MD [...] as a scribe for Dr. Manolo Meza. APNJ Nurse: Nacho Oreilly RN Resident:: Jace Lyons [...] bpm] I/O last 3 completed shifts: In: 63877.3 [I.V.:9028.8; Blood:987; Other:1035.5] Out: 3759 [Urine:1304; Drains:205; [...] 65 - 199 mg/dL Type and screen ([facility] Result Value Ref Range ABORH Type O POSITIVE PATIENT HISTORY Found Expires at 2359 on: 2024 ANTIBODY SCREEN AUTOMATED Negative T&S only valid at [facility] ABORH RECHECK (PATIENT HISTORY FOUND) Result [...] Information Issued Product Identification RBC Unit Number [id number] Product Code [id number] Unit Blood Type OPOS Specimen Expiration Date [id number] Volulme 350 Issue Date / Time Status Information Issued Product Identification RBC Unit Number [id number] Product Code [id number] Unit Blood Type OPOS Specimen Expiration Date [id number] Volulme 350 Issue Date / Time Blood Gas, Arterial POC Result Value Ref [...] Information Issued Product Identification RBC Unit Number [id number] Product Code [id number] Unit Blood Type OPOS Specimen Expiration Date Volulme 287 Issue Date / Time Status Information Returned Product Identification RBC Unit Number [id number] Product Code Z3942I71 Unit Blood Type OPOS Specimen Expiration Date [id number] Volulme 350 Issue Date / Time POC, [...] of pancreatic head adenocarcinoma who presents [place] [facility] [place] whipple S: Wero Sadler endorses no [...] Uday Gomes MD 01/23/2024 General Surgery p. 2823 HPB surgery attending addendum I saw Wero [...] Contact information for follow-up [facility], [address] [address] Transportation: health plan transportation *RCT Functional status prior to admission: Independent Home Environment: Others in the home: alone. Current Living Arrangements: home/apartment/condo. Accessibility Concerns:1 CLARIBEL. 2 levels. can stay on 1 if need to. Current Functional Ability: DME used at home: none DME Needed at Discharge: FWW- delivered by [employer] Patient is insured through: Primary Insurance: MEDICARE [...] a copy of this letter. Jessenia Self RN Office of Care Management * Plan of Care - Julisa De La O RN - 02/01/2024 9:47 AM EST OUTCOME EVALUATION NOTE: OUTCOME SUMMARY: Ride home confirmed for noon at main entrance Glucose monitor put in by endocrine DO & walker brought to patient by [employer] Discharge instructions gone over with patient - [...] noon from the Main Entrance- Portia be combine driver for RCT thru medicaid [place]. PLEASE call [phone] for 8 am tomorrow to confirm patient is still a go for dc and ride is needed, No ride will come if not confirmed. Pt going to [address] [place] [address] Rd in [facility]. Ride set w. Altagracia Forbes [...] Nurse, Physical Therapy, Occupational Therapy Agency Referrals: [facility] [address] [place] [address] Transportation: health plan transportation *RCT Barriers to discharge: Global: Denies needs/concerns at this time Plan: Patient is not medically ready related to: RBC transfusion for low Hgb. Plan going forward is: plan to discharge home tomorrow, patient will need RCT ride set up. Anticipated Date of Discharge: 02/01/2024 Patricia Ramirez, RN, MSN, [facility] Surgery Nurse Order Takers Supervisor [phone] , Pager [phone] * Consult Note - Jeane Rooney, NATHAN - 01/31/2024 8:44 AM EST Images from [...] 01/28/2024 1800 01/27/2024 1800 Adult TPN (Custom) [[id number]] Adult TPN (Custom) [[id number]] Adult TPN (Custom) [[id number]] Order Status Discontinued Completed Completed Last Admin [...] of this encounter: 87.5 kg (193 lb). Sycamore Body Weight (IBW) (kg): 72.73 Wt Readings [...] He enjoys foods such as breakfast sandwiches (macanese muffin, sausage, egg, cheese, butter) and items [...] maxillary line): Not assessed Lean Muscle Loss Anabaptist region (temporalis muscle): None present Clavicle bone [...] as Appropriate) * Consult Note - Casandra Briseno, NATHAN - 01/29/2024 9:07 AM EST Images from [...] 01/28/2024 1800 01/27/2024 1800 Adult TPN (Custom) [[id number]] Adult TPN (Custom) [[id number]] Adult TPN (Custom) [[id number]] Order Status Active Last Dose in Progress [...] time Site Days Naso/Oral Tube 01/23/24 1545 [place] sump left nostril 01/23/24 1545 left nostril [...] of this encounter: 95.3 kg (210 lb). Sycamore Body Weight (IBW) (kg): 72.73 Wt Readings [...] He enjoys foods such as breakfast sandwiches (macanese muffin, sausage, egg, cheese, butter) and items [...] maxillary line): Not assessed Lean Muscle Loss Anabaptist region (temporalis muscle): None present Clavicle bone [...] Claudication Colon adenocarcinoma 2008 recieved chemo in [place] Coronary artery disease Coronary artery dissection CPAP (continuous positive airway pressure) dependence CPAP Diabetes treated with medication Diabetes mellitus 07/22/2019 Gastroesophageal reflux High blood pressure Hyperlipidemia Obstructive sleep apnea Status post chemotherapy 2009 colon cancer Stroke 11-24-19 Past surgical history: [...] 0.3) performed by Tor Balbuena MD at [facility] OSC PRO ARTHROPLASTY ACETABULAR/PROX FEM PROSTC AGRFT/ALGRFT Left 10/10/2020 TOTAL HIP ARTHROPLASTY - POSTERIOR (WRVU 20.72) performed by Ismael Wu MD at [facility] MAIN OR PRO ARTHROPLASTY ACETABULAR/PROX FEM PROSTC AGRFT/ALGRFT Right 11/17/2021 TOTAL HIP ARTHROPLASTY - POSTERIOR (WRVU 20.72) performed by Ismael Wu MD at [facility] MAIN OR PRO ENDOSCOPIC US EXAM, ESOPH N/A 07/02/2023 UPPER EUS- ENDOSCOPIC ULTRASOUND (WRVU 3.47) performed by Pako Lopez MD at [facility] ENDOSCOPY PRO ERCP, W/REMOVAL STONE, TARYN/PANCR DUCTS 07/02/2023 ERCP W/REMOVAL CALCULI/DEBRIS FROM BILARY/PANCREATIC DUCT(S) (WRVU 6.63) performed by Pako Lopez MD at [facility] ENDOSCOPY PRO ERCP,DIAGNOSTIC N/A 07/02/2023 ERCP (WRVU 5.85) performed by Pako Lopez MD at [facility] ENDOSCOPY PRO EXPLORATION NOT FOLLOWED BY SURG NECK ARTERY Right 07/14/2021 @EXPLORATION NOT FOLLOWED BY SURGICAL REPAIR, ARTERY; NECK (CAROTID OR SUBCLAVIAN) (WRVU 9.19) performed by Basim Barr MD at [facility] MAIN OR PRO INSERT TUNNELED CV CATH W SUBQ PORT, AGE 3 YRS OR OLDER N/A 07/05/2023 MARIO\AMELIA.CATHETER,TUNNELED, WITH SQ PORT OR PUMP OVER 5YR (WRVU 5.79) performed by Maggi Balbuena MD at [facility] OSC PRO LAP, DIAGNOSTIC ABDOMEN N/A 07/05/2023 LAPAROSCOPY, DIAGNOSTIC, ABDOMEN (WRVU 5.14) performed by Tor Balbuena MD at [facility] OSC PRO LASER VAPORIZATION SURGERY PROSTATE, COMPLETE Midline 02/02/2021 CYSTO, LASER TURP (WRVU 12.15) performed by Cayetano Engle MD at [facility] MAIN OR PRO OMENTAL FLAP, INTRA-ABDOMINAL 01/23/2024 @OMENTAL FLAP, INTRA-ABDOMINAL (WRVU 6.54) performed by Tor Balbuena MD at [facility] MAIN OR PRO PART REMV PANC, PROX+REMV DUOD+ANAST N/A 01/23/2024 @WHIPPLE PROCEDURE (WRVU 52.84) performed by Tor Balbuena MD at [facility] MAIN OR PRO PLACE TRANSCATHETER STENT, CCA W EMBOLIC PROECT Right 07/14/2021 @TRANSCATH INTRAVASCULAR STENT,CAROTID,PERC,W\EMBOLIC PROT. (WRVU 18) performed by Basim Barr MD at [facility] MAIN OR PRO UNLISTED PROCEDURE VASCULAR SURGERY 01/23/2024 PORTAL VEIN REPAIR (WRVU 13.24) performed by Tor Balbuena MD at [facility] MAIN OR Subjective: Pt received sitting [...] abdmininal incision, abdominal precautions, legally blind. Krause, PAPER SALES REPRESENTATIVE, sips and chips, NGT to suction, Patient [...] 0750 -- 5 Naso/Oral Tube 01/23/24 1545 [place] sump left nostril 01/23/24 1545 left nostril [...] 2-3 times/wk Total Minutes, Occupational Therapy: 30 ([phone]) Planned OT interventions: Role of occupational therapy/rehabilitation, [...] They/Them Occupational Therapy Rehabilitation Department Pager # [phone] * Consult Note - Casandra Briseno, RD - 01/28/2024 11:16 AM EST Images [...] with provider CASA Dominguez - Surg Onc 3286 . Current Nutrition Regimen: Active Orders Diet Sips and Chips (Give Meds) Frequency: Effective Now Number of Occurrences: Until Specified TPN Orders: TPN Medication Recent History (Show up to 3 orders; newest on the left. Changes between the two most recent orders are indicated.) Start date and time 01/28/2024 1800 01/27/2024 1800 Adult TPN (Custom) [[id number]] Adult TPN (Custom) [[id number]] Order Status Active Last Dose in Progress [...] time Site Days Naso/Oral Tube 01/23/24 1545 [place] sump left nostril 01/23/24 1545 left nostril 5 PIV 01/28/24 0556 20 gauge;1 in length cephalic vein (lateral side of arm), left 11/26/24 0556 -- less than 1 Implanted Port [...] of this encounter: 95.3 kg (210 lb). Sycamore Body Weight (IBW) (kg): 72.73 Wt Readings [...] He enjoys foods such as breakfast sandwiches (macanese muffin, sausage, egg, cheese, butter) and items [...] maxillary line): Not assessed Lean Muscle Loss Anabaptist region (temporalis muscle): None present Clavicle bone [...] home health with to be determined (01/24/24 0937) Plan for discharge is: Home w/ Services Outpatient Agency/Support Group Needs: None Home Health Services: Registered Nurse, Physical Therapy, Occupational Therapy Agency Referrals: [facility] [address] [place] [address] Transportation: health plan transportation *RCT Barriers to discharge: Global: Denies needs/concerns at this time Plan: Patient is not medically ready related to: s/p whipple. Failed NGT clamp trial yesterday, starting TPN, waiting for ROBF, monitor for HEATHER drain output. Plan going forward is: likely home with VNA when med ready. Anticipated Date of Discharge: 01/29/2024 Fabian Kang MEAT CARVER media services specialist [phone] * Consult Note - Soniya Novoa RD [...] and time 01/27/2024 1800 Adult TPN (Custom) [[id number]] Order Status Active Frequency Continuous (TPN) Medications [...] time Site Days Naso/Oral Tube 01/23/24 1545 [place] sump left nostril 01/23/24 1545 left nostril [...] of this encounter: 95.3 kg (210 lb). Sycamore Body Weight (IBW) (kg): 72.73 Wt Readings [...] He enjoys foods such as breakfast sandwiches (macanese muffin, sausage, egg, cheese, butter) and items [...] maxillary line): Not assessed Lean Muscle Loss Anabaptist region (temporalis muscle): None present Clavicle bone region (pectoralis major): None present Dorsal hand (interosseous muscle): None present Shoulder (deltoid): None present Scapular bone region (latissimus dorsi, trapezius muscles): Not assessed Thigh region (quadriceps muscle): None present Posterior calf region (gastrocnemius muscle): None present Fluid Accumulation Fluid Accumulation: Not assessed Malnutrition Diagnosis: Not identified (LANDON Coto Parenteral Enteral Nutr. 2011; 36(3): 273-83) Nutrition [...] of MD contacted MD Moore 01/26 @ 1412 CARDIAC CATH LAB MANAGER CARING FOR THIS PATIENT WILL CONTINUE TO [...] Note Social Work Response to Consult Consult: Senior Windows Systems Administrator responded to consult regarding need for Advanced Directive Social Work Response: Senior Windows Systems Administrator visited patient while he was in the ISCU. Patient was friendly and welcoming. Patient also stated that was resting comfortably. Senior Windows Systems Administrator asked patient if he had an AD and explained the difference between that and personal representation; [facility] [place] documentation, but no AD on file. However, patient confirmed he has an AD, but did state it was his brother who was his POA. His daughter, Yessi Olivera ([phone]) is noted as being POA. It is uncertain if there are more than one healthcare POAs. Senior Windows Systems Administrator left with Yessi to confirm. Senior Windows Systems Administrator left his phone # with her. Follow Up Needed: EMPLOYEE BENEFITS SPECIALIST to follow up on POA status. MAXI Bello Customer Insight Analyst, Hand Umbrella Tipper Office of Care Management * Plan of [...] Claudication Colon adenocarcinoma 2009 recieved chemo in [place] Coronary artery disease Coronary artery dissection CPAP [...] Who is your DPOA-HC?: Child (Yessi Olivera [phone]) Current Coping/Education/Information Needs: coping well Current Functional [...] homeless or living in a jail (including now)?: No In the past 12 months has the markedup, gas, oil, or water Tango threatened to shut off services in your [...] Current DME: none Home Address confirmed as: [address] [place] [phone] Social & Family Supports: All names listed [...] Yes ; Prescription Coverage: Yes Preferred Pharmacy: [id number] - [facility] [address] [facility] [address] [facility] [address] [address] [facility] [place], [place] - [address] [facility] [address] [facility] [address] [facility] [address] [facility] [address] [facility] [address] [id number] - [place] [address] [facility] [address] [place] [address] [address] [place] [address] [facility] [address] [facility] [address] [facility] [address] [place] [address] - [address] [facility] [address] [facility] - [place], [place] - [address] [facility] [address] [place] Status: Patient is a : No Primary Care Provider confirmed: Tristen Hunter MD [phone] Patient/Caregiver Goals of Treatment: home with VNA Potential Needs for Transition of Care: home health care Agency Referrals: The patient has been provided a list of Home Health Agencies/DME vendors which serve their preferred geographic area. A letter describing our affiliations was reviewed with them and they were educated about their right to choose where referrals are placed. Provided patient with [facility] Star Quality Rating handout. They have requested referrals to: [facility] [address] [place] [address] Expected date of discharge: 01/31/2024 Referral routed to the Certified Pharmacy Tech for matching with agency/vendor and to provide [...] coordination of care as indicated. Fabian Kang MEAT CARVER media services specialist [phone] * Consult Note - Heavenly Martinez APRN [...] is: Breakfast- Cornbeef hash couple eggs Lunch- [place] Supper- Meal on wheels. Typical exercise regimen [...] Claudication Colon adenocarcinoma 2009 recieved chemo in [place] Coronary artery disease Coronary artery dissection CPAP [...] a dye used during vascular procedure at [facility] in [place]: shaking Has tolerated MRI [...] Martinez APRN Endocrinology Diabetes Management Service Pager: [phone] Weekends please page endocrine radiocommunications technician 70 minutes of this 80 minute visit [...] Operative Note Patient Name: Wero Sadler : [id number] MR#: [id number] Case Date: 01/23/2024 Surgeon: Surgeons and Role: * Tor Balbuena MD - Primary * Uday Gomes MD - Resident - Assisting * Joe Espinosa MD - Assisting Attending Preoperative diagnosis: PANCREAS CANCER Postoperative diagnosis: PANCREAS CANCER Procedure(s) (LRB): @WHIPPLE PROCEDURE (WRVU 52.84) (N/A) PORTAL VEIN REPAIR (WRVU 13.24) @OMENTAL FLAP, INTRA-ABDOMINAL (WRVU 6.54) Modifiers: 80: Audit Reviewer surgeon Anesthesia: General Findings: - No evidence [...] : Blood Blood, Venous TYPE AND SCREEN ([facility] Tor Balbuena MD 01/23/2024 0851 B : [...] Balbuena MD - 01/23/2024 8:41 AM EST [facility] Operative Note Patient Name: Wero Sadler : [id number] MR#: [id number] Case Date: 01/23/2024 Surgeon: Surgeons and Role: * Tor Balbuena MD - Primary * Uday Gomes MD - Resident - Assisting * Joe Espinosa MD - Assisting Attending Preoperative diagnosis: PANCREAS CANCER Postoperative diagnosis: PANCREAS CANCER Procedure(s) (LRB): @WHIPPLE PROCEDURE (WRVU 52.84) (N/A) PORTAL VEIN REPAIR (WRVU 13.24) @OMENTAL FLAP, INTRA-ABDOMINAL (WRVU 6.54) Modifiers: 80: Audit Reviewer surgeon Findings: No evidence for metastatic disease. [...] bovine pericardial patch pledgets and internalized 5 Kuwaiti pancreatic duct stent. The bile duct was quite dilated measuring about 15 mm in an end to side hepaticojejunostomy anastomosis was created. Finally in order to restore intestinal continuity a defect was created in the transverse mesocolon to the left of the middle colic vessels to allow the jejunum to be brought up in his retromesenteric location into the supracolic abdomen where a imov-yz-zcbi, retrogastric Billroth II type gastrojejunostomy was created. The 19 Kuwaiti Kd drain was placed into Morison's pouch [...] : Blood Blood, Venous TYPE AND SCREEN ([facility] Tor Balbuena MD 01/23/2024 0812 B : bile culture Tissue Bile Duct [...] pursuant to and in compliance with the [facility] operative policies. His abdomen and lower chest [...] blade. There was pulsatile bleeding from the ssskind-ru-rvbr of the pancreas. Hemostasis was obtained with [...] the posterior outer layer. Next a pancreaticojejunostomy pqtu-om-wfanfi anastomosis was created. A small enterotomy was [...] to placing the surgical drain. A 19 Kuwaiti Kd closed suction drain was placed through a separate stab incision in the right lateral abdomen and positioned to lie in the most dependent portion of the abdomen along the right colic gutter/Morison's pouch lateral to the liver and above gerotas fascia. The foregut reconstruction was a retrocolic osdb-qg-cuge, Billroth II type, gastrojejunostomy anastomosis. A defect was created in the transverse mesocolon to the left and middle colic vessels to allow the jejunum to be brought up as a loop to perform a retrogastric zqyn-gr-eutj gastrojejunostomy anastomosis. This was accomplished with the Ethicon stapler (purple load). The common gastroenterotomy was closed in 2 layers with an inner layer of 3-0 PDS We[place]ufka stitches. The outer layer was interrupted 3-0 silk Lembert stitches. The anastomosis was found to be widely patent and viable appearing. The preserved pedicled omental flap/falciform ligament was then placed over the GDA and gastric artery stumps in the portal transection bed. The 19 Kuwaiti Kd drain was then passed beneath the [...] type gastrojejunostomy HEATHER drain placement location: 19 Kuwaiti Kd drain positioned in Morison's pouch, posterior [...] 9:30 AM EST Office Visit Hematology/Oncology at [address] [address] Cl Hess MD [facility] [place] [address] [address] [place] [address] 04/09/2024 10:00 AM EST Infusion Hematology Oncology at [address] [phone] 04/23/2024 9:30 AM EST Office Visit Hematology/Oncology at [address] [address] Cl Hess MD [facility] [place] [address] [address] [place] [address] 04/23/2024 10:00 AM EST Infusion Hematology Oncology at [address] [address] 05/18/2024 4:30 PM EDT TH Visit (TeleHealth) [place] [address] Malachi Rothman MD [facility] [place] [address] 09/24/2024 9:00 AM EDT Office Visit Radiation Oncology at [address] [phone] Ping Moore PA [facility] [place] [address] Scheduled Orders Name Type Priority Associated Diagnoses [...] Routine 8:28 AM EST Omental Flap, Intra-Abdominal ([id number]) 01/23/2024 7:52 AM EST PANCREAS CANCER Unlisted Procedure Vascular Surgery (11042) 01/23/2024 7:52 AM EST PANCREAS CANCER Part Remv Panc, Prox+Remv Duod+Anast ([id number]) 01/23/2024 7:52 AM EST PANCREAS CANCER XR [...] * POC, GLUCOSE (02/01/2024 8:02 AM EST) Glucometer, POC 189 65 - 199 mg/dL 02/01/2024 8:02 AM EST [facility] Comment:Supplemental ranges: <140 mg/dL before meals <180 mg/dL all other times of the day. Blood CAPILLARY BLOOD / Unknown 02/01/2024 8:02 AM EST 02/01/2024 8:03 AM EST Tor Balbuena MD POINT OF CARE TEST ORDERABLES [facility] [place] [address] * POC, GLUCOSE (02/01/2024 4:18 AM EST) Glucometer, POC 149 65 - 199 mg/dL 02/01/2024 4:19 AM EST [facility] Comment:Supplemental ranges: <140 mg/dL before meals <180 mg/dL all other times of the day. Blood CAPILLARY BLOOD / Unknown 02/01/2024 4:18 AM EST 02/01/2024 4:19 AM EST Tor Balbuena MD POINT OF CARE TEST ORDERABLES Performing Organization Address City/[facility]/ZIP Co de Phone Number [facility] [place] [address] * Magnesium (02/01/2024 4:17 AM EST) Magnesium 0.98 0.69 - 1.07 mMol/L 02/01/2024 4:58 AM EST [facility] Blood VENOUS BLOOD SPECIMEN / Unknown Venipuncture / Unknown 02/01/2024 4:17 AM EST 02/01/2024 4:28 AM EST Tor Balbuena MD CHEMISTRY ORDERABL ES Performing Organization Address [facility] Co de Phone Number [facility] [place] [address] * Phosphorus (02/01/2024 4:17 AM EST) Phosphorus 3.8 2.5 - 4.5 mg/dL 02/01/2024 4:58 AM EST [facility] Blood VENOUS BLOOD SPECIMEN / Unknown Venipuncture / Unknown 02/01/2024 4:17 AM EST 02/01/2024 4:28 AM EST Tor Balbuena MD CHEMISTRY ORDERABL ES Performing Organization Address City/[facility]/ZIP Co de Phone Number [facility] [place] [address] * (ABNORMAL) Comprehensive metabolic panel (02/01/2024 4:17 AM EST) Glucose 151 65 - 199 mg/dL 02/01/2024 4:58 AM EST [facility] Comment:Glucose Concentratio n >=200 mg/dL plus symptoms is consistent with Diabetes Mellitus. Blood Urea Nitrogen 20 10 - 20 mg/dL 02/01/2024 4:58 AM [facility] Creatinine 0.71(L) 0.80 - 1.50 mg/dL 02/01/2024 4:58 AM [facility] Sodium 133(L) 135 - 145 mMol/L 02/01/2024 4:58 AM [facility] Potassium 4.3 3.5 - 5.0 mMol/L 02/01/2024 4:58 AM [facility] Chloride 98 98 - 107 mMol/L 02/01/2024 4:58 AM [facility] Carbon Dioxide 27 22 - 31 mMol/L 02/01/2024 4:58 AM [facility] Anion Gap 8 5 - 15 mMol/L 02/01/2024 4:58 AM [facility] Calcium 8.7 8.5 - 10.5 mg/dL 02/01/2024 4:58 AM [facility] Protein, Total 6.0(L) 6.1 - 8.0 g/dL 02/01/2024 4:58 AM [facility] Albumin 3.3 3.2 - 5.2 g/dL 02/01/2024 4:58 AM [facility] Aspartate Aminotransferase 28 <=39 unit/L 02/01/2024 4:58 AM [facility] Alanine Aminotransferase 39 0 - 55 unit/L 02/01/2024 4:58 AM [facility] Alkaline Phosphatase 151(H) 40 - 130 unit/L 02/01/2024 4:58 AM [facility] Bilirubin, Total 1.1 <=1.3 mg/dL 02/01/2024 4:58 AM [facility] Est Glomerular Filtration Rate - Male 95 mL/min/1. 73 m?? 02/01/2024 4:58 AM [facility] Comment: This patient's estimated GFR [...] EST Tor Balbuena MD CHEMISTRY ORDERABL ES [facility] [facility] [place] [address] * (ABNORMAL) CBC (with Diff) (02/01/2024 4:17 AM EST) White Blood Cell 6.27 4.00 - 9.50 x10(3)/mc L 02/01/2024 4:35 AM EST [facility] Red Blood Cell 2.98(L) 4.58 - 5.54 x10(6)/mc L 02/01/2024 4:35 AM EST [facility] Hemoglobin 9.2(L) 13.7 - 16.5 g/dL 02/01/2024 4:35 AM [facility] Hematocrit 27.5(L) 40.5 - 48.5 % 02/01/2024 4:35 AM [facility] Mean Cell Volume 92.3 82.9 - 93.1 fL 02/01/2024 4:35 AM [facility] Mean Cell Hemoglobin 30.9 27.5 - 32.1 pg 02/01/2024 4:35 AM [facility] Mean Cell Hemoglobin Concentration 33.5 32.0 - 35.7 g/dL 02/01/2024 4:35 AM [facility] Platelet 289 145 - 357 x10(3)/mc L 02/01/2024 4:35 AM [facility] Mean Platelet Volume 8.8 7.6 - 12.9 fL 02/01/2024 4:35 AM [facility] RDW Standard Deviation 48.6(H) 36.0 - 45.0 fL 02/01/2024 4:35 AM [facility] RDW coefficient of variation 14.5(H) 11.4 - 13.8 % 02/01/2024 4:35 AM [facility] NRBC% auto 0.0 % 02/01/2024 4:35 AM [facility] NRBC Absolute <0.01 <0.01 x10(3)/mc L 02/01/2024 4:35 AM [facility] Neutrophil % 73.4 % 02/01/2024 4:35 AM [facility] Neutrophil Absolute (ANC) - Automated 4.61 1.70 - 6.10 x10(3)/mc L 02/01/2024 4:35 AM [facility] Lymph % 11.2 % 02/01/2024 4:35 AM [facility] Lymph Absolute 0.70(L) 0.90 - 3.20 x10(3)/mc L 02/01/2024 4:35 AM [facility] Monocyte % 9.1 % 02/01/2024 4:35 AM [facility] Monocyte Absolute 0.57 0.30 - 0.90 x10(3)/mc L 02/01/2024 4:35 AM [facility] Eos % 4.8 % 02/01/2024 4:35 AM [facility] Eos Absolute 0.30 0.00 - 0.40 x10(3)/mc L 02/01/2024 4:35 AM [facility] Basophil % 0.2 % 02/01/2024 4:35 AM [facility] Baso Absolute <0.04 0.00 - 0.10 x10(3)/mc L 02/01/2024 4:35 AM EST [facility] Immature Gran % 1.3 % 4:35 AM EST [facility] Immature Gran Absolute 0.08(H) 0.00 - 0.04 x10(3)/mc L 02/01/2024 4:35 AM EST [facility] Blood VENOUS BLOOD SPECIMEN / Unknown Venipuncture / Unknown 02/01/2024 4:17 AM EST 02/01/2024 4:29 AM EST Tor Balbuena MD HEMATOLOGY ORDERAB LES [facility] [place] [address] * POC, GLUCOSE (02/01/2024 12:12 AM EST) Glucometer, POC 138 65 - 199 mg/dL 02/01/2024 12:13 AM EST [facility] Comment:Supplemental ranges: <140 mg/dL before meals <180 mg/dL all other times of the day. Blood CAPILLARY BLOOD / Unknown 02/01/2024 12:12 AM EST 02/01/2024 12:13 AM EST Tor Balbuena MD POINT OF CARE TEST ORDERABLES [facility] [place] [address] * Prepare RBC (01/31/2024 11:07 PM EST) Status Information Transfused [facility] Product Identification RBC [facility] Unit Number [id number] [facility] Product Code [id number] [facility] Unit Blood Type OPOS [facility] Specimen Expiration Date [id number] [facility] Volulme 286 [facility] Issue Date / Time [id number] [facility] Blood 01/31/2024 8:1 0 AM EST Tor Balbuena MD BLOOD BANK PRODUCT ORDERABLES Performing Organization Address City/[facility] Co de Phone Number [facility] [place] [address] * POC, GLUCOSE (01/31/2024 10:14 PM EST) Glucometer, POC 136 65 - 199 mg/dL 01/31/2024 10:15 PM EST [facility] Comment:Supplemental ranges: <140 mg/dL before meals <180 mg/dL all other times of the day. Blood CAPILLARY BLOOD / Unknown 01/31/2024 10:14 PM EST 01/31/2024 10:15 PM EST Tor Balbuena MD POINT OF CARE TEST ORDERABLES Performing Organization Address [facility] Co de Phone Number [facility] [place] [address] * (ABNORMAL) POC, GLUCOSE (01/31/2024 8:04 PM EST) Glucometer, POC 265(H) 65 - 199 mg/dL 01/31/2024 8:04 PM EST [facility] Comment:Supplemental ranges: <140 mg/dL before meals <180 mg/dL all other times of the day. Blood CAPILLARY BLOOD / Unknown 01/31/2024 8:04 PM EST 01/31/2024 8:04 PM EST Tor Balbuena MD POINT OF CARE TEST ORDERABLES Performing Organization Address City/[facility] Co de Phone Number [facility] [place] [address] * (ABNORMAL) POC, GLUCOSE (01/31/2024 4:00 PM EST) Glucometer, POC 269(H) 65 - 199 mg/dL 01/31/2024 4:00 PM EST [facility] Comment:Supplemental ranges: <140 mg/dL before meals <180 mg/dL all other times of the day. Blood CAPILLARY BLOOD / Unknown 01/31/2024 4:00 PM EST 01/31/2024 4:01 PM EST Tor Balbuena MD POINT OF CARE TEST ORDERABLES Performing Organization Address City/[facility]/ZIP Co de Phone Number [facility] [place] [address] * POC, GLUCOSE (01/31/2024 11:30 AM EST) [facility] Glucometer, POC 183 65 - 199 mg/dL 01/31/2024 11:30 AM EST [facility] Comment:Supplemental ranges: <140 mg/dL before meals <180 mg/dL all other times of the day. Blood CAPILLARY BLOOD / Unknown 01/31/2024 11:30 AM EST 01/31/2024 11:30 AM EST Tor Balbuena MD POINT OF CARE TEST ORDERABLES Performing Organization Address [facility]/ZIP Co de Phone Number [facility] [place] [address] * ABORH RECHECK (PATIENT HISTORY FOUND) (01/31/2024 8:21 AM EST) [facility] ABORH Recheck Progress Complete 01/31/2024 10:01 AM EST [facility] Blood VENOUS BLOOD SPECIMEN / Unknown Venipuncture / Unknown 01/31/2024 8:21 AM EST 01/31/2024 8:31 AM EST Tor Balbuena MD BLOOD BANK LAB ORD ERABLES Performing Organization Address City/[facility]/ZIP Co de Phone Number [facility] [place] [address] * Type and screen ([facility]/CGP/NATO) (01/31/2024 8:21 AM EST) [facility] ABORH Type O POSITIVE 01/31/2024 9:20 AM EST [facility] PATIENT HISTORY Found 01/31/2024 9:20 AM EST [facility] Expires at [id number] on: 02-03-2024 01/31/2024 9:20 AM EST [facility] ANTIBODY SCREEN AUTOMATED Negative 01/31/2024 9:20 AM EST [facility] T&S only valid at [facility] 01/31/2024 9:20 AM EST [facility] Blood VENOUS BLOOD SPECIMEN / Unknown Venipuncture / Unknown 01/31/2024 8:21 AM EST 01/31/2024 8:31 AM EST Narrative [facility] - 01/31/2024 9:20 AM EST This Type and Screen result is only valid at the [facility] Tor Balbuena MD BLOOD BANK LAB ORD ERABLES Performing Organization Address City/[facility] Co de Phone Number [facility] [place] [address] * POC, GLUCOSE (01/31/2024 7:18 AM EST) Glucometer, POC 156 65 - 199 mg/dL 01/31/2024 7:19 AM EST [facility] Comment:Supplemental ranges: <140 mg/dL before meals <180 mg/dL all other times of the day. Blood CAPILLARY BLOOD / Unknown 01/31/2024 7:18 AM EST 01/31/2024 7:19 AM EST Tor Balbuena MD POINT OF CARE TEST ORDERABLES Performing Organization Address City/[facility]/ZIP Co de Phone Number [facility] [place] [address] * Magnesium (01/31/2024 5:03 AM EST) Magnesium 1.01 0.69 - 1.07 mMol/L 01/31/2024 5:47 AM EST [facility] Blood VENOUS BLOOD SPECIMEN / Unknown Venipuncture / Unknown 01/31/2024 5:03 AM EST 01/31/2024 5:14 AM EST Tor Balbuena MD CHEMISTRY ORDERABL ES [facility] [place] [address] * (ABNORMAL) Phosphorus (01/31/2024 5:03 AM EST) Pathologist [facility] Phosphorus 4.7(H) 2.5 - 4.5 mg/dL 01/31/2024 5:47 AM [facility] Blood VENOUS BLOOD SPECIMEN / Unknown Venipuncture / Unknown 01/31/2024 5:03 AM EST 01/31/2024 5:14 AM EST Tor Balbuena MD CHEMISTRY ORDERABL ES Performing Organization Address [facility]/ZIP Co de Phone Number [facility] [place] [address] * (ABNORMAL) Comprehensive metabolic panel (01/31/2024 5:03 AM EST) Pathologist [facility] Glucose 154 65 - 199 mg/dL 01/31/2024 5:47 AM [facility] Comment:Glucose Concentratio n >=200 mg/dL plus symptoms is consistent with Diabetes Mellitus. Blood Urea Nitrogen 20 10 - 20 mg/dL 01/31/2024 5:47 AM [facility] Creatinine 0.73(L) 0.80 - 1.50 mg/dL 01/31/2024 5:47 AM [facility] Sodium 136 135 - 145 mMol/L 01/31/2024 5:47 AM [facility] Potassium 4.0 3.5 - 5.0 mMol/L 01/31/2024 5:47 AM [facility] Chloride 99 98 - 107 mMol/L 01/31/2024 5:47 AM [facility] Carbon Dioxide 27 22 - 31 mMol/L 01/31/2024 5:47 AM [facility] Anion Gap 10 5 - 15 mMol/L 01/31/2024 5:47 AM [facility] Calcium 8.7 8.5 - 10.5 mg/dL 01/31/2024 5:47 AM EST [facility] Protein, Total 5.7(L) 6.1 - 8.0 g/dL 01/31/2024 5:47 AM [facility] Albumin 3.1(L) 3.2 - 5.2 g/dL 01/31/2024 5:47 AM [facility] Aspartate Aminotransferase 27 <=39 unit/L 01/31/2024 5:47 AM [facility] Alanine Aminotransferase 34 0 - 55 unit/L 01/31/2024 5:47 AM [facility] Alkaline Phosphatase 130 40 - 130 unit/L 01/31/2024 5:47 AM [facility] Bilirubin, Total 0.8 <=1.3 mg/dL 01/31/2024 5:47 AM [facility] Est Glomerular Filtration Rate - Male 94 mL/min/1. 73 m?? 01/31/2024 5:47 AM [facility] Comment: This patient's estimated GFR [...] EST Tor Balbuena MD CHEMISTRY ORDERABL ES [facility] [place] [address] * (ABNORMAL) CBC (with Diff) (01/31/2024 5:03 AM EST) White Blood Cell 5.92 4.00 - 9.50 x10(3)/mc L 01/31/2024 5:26 AM [facility] Red Blood Cell 2.54(L) 4.58 - 5.54 x10(6)/mc L 01/31/2024 5:26 AM [facility] Hemoglobin 7.6(L) 13.7 - 16.5 g/dL 01/31/2024 5:26 AM [facility] Hematocrit 23.3(L) 40.5 - 48.5 % 01/31/2024 5:26 AM [facility] Mean Cell Volume 91.7 82.9 - 93.1 fL 01/31/2024 5:26 AM [facility] Mean Cell Hemoglobin 29.9 27.5 - 32.1 pg 01/31/2024 5:26 AM [facility] Mean Cell Hemoglobin Concentration 32.6 32.0 - 35.7 g/dL 01/31/2024 5:26 AM [facility] Platelet 263 145 - 357 x10(3)/mc L 01/31/2024 5:26 AM [facility] Mean Platelet Volume 9.0 7.6 - 12.9 fL 01/31/2024 5:26 AM [facility] RDW Standard Deviation 47.4(H) 36.0 - 45.0 fL 01/31/2024 5:26 AM [facility] RDW coefficient of variation 14.3(H) 11.4 - 13.8 % 01/31/2024 5:26 AM [facility] NRBC% auto 0.0 % 01/31/2024 5:26 AM [facility] NRBC Absolute <0.01 <0.01 x10(3)/mc L 01/31/2024 5:26 AM [facility] Neutrophil % 74.2 % 01/31/2024 5:26 AM [facility] Neutrophil Absolute (ANC) - Automated 4.39 1.70 - 6.10 x10(3)/mc L 01/31/2024 5:26 AM EST [facility] Lymph % 11.0 % 01/31/2024 5:26 AM [facility] Lymph Absolute 0.65(L) 0.90 - 3.20 x10(3)/mc L 01/31/2024 5:26 AM [facility] Monocyte % 9.6 % 01/31/2024 5:26 AM [facility] Monocyte Absolute 0.57 0.30 - 0.90 x10(3)/mc L 01/31/2024 5:26 AM [facility] Eos % 3.0 % 01/31/2024 5:26 AM [facility] Eos Absolute 0.18 0.00 - 0.40 x10(3)/mc L 01/31/2024 5:26 AM [facility] Basophil % 0.3 % 01/31/2024 5:26 AM [facility] Baso Absolute <0.04 0.00 - 0.10 x10(3)/mc L 01/31/2024 5:26 AM [facility] Immature Gran % 1.9 % 5:26 AM [facility] Immature Gran Absolute 0.11(H) 0.00 - 0.04 x10(3)/mc L 01/31/2024 5:26 AM [facility] Blood VENOUS BLOOD SPECIMEN / Unknown Venipuncture / Unknown 01/31/2024 5:03 AM EST 01/31/2024 5:14 AM EST Tor Balbuena MD HEMATOLOGY ORDERAB LES [facility] [place] [address] * POC, GLUCOSE (01/31/2024 3:43 AM EST) [facility] Signature Glucometer, POC 152 65 - 199 mg/dL 01/31/2024 3:44 AM EST [facility] Comment:Supplemental ranges: <140 mg/dL before meals <180 mg/dL all other times of the day. Blood CAPILLARY BLOOD / Unknown 01/31/2024 3:43 AM EST 01/31/2024 3:44 AM EST Tor Balbuena MD POINT OF CARE TEST ORDERABLES Performing Organization Address City/[facility]/ZIP Co de Phone Number [facility] [place] [address] * POC, GLUCOSE (01/31/2024 12:38 AM EST) Glucometer, POC 135 65 - 199 mg/dL 01/31/2024 12:39 AM EST [facility] Comment:Supplemental ranges: <140 mg/dL before meals <180 mg/dL all other times of the day. Blood CAPILLARY BLOOD / Unknown 01/31/2024 12:38 AM EST 01/31/2024 12:39 AM EST Tor Balbuena MD POINT OF CARE TEST ORDERABLES Performing Organization Address City/[facility] Co de Phone Number [facility] [place] [address] * Scan Doc: Lab (01/31/2024 12:00 AM EST) Narrative 01/31/2024 12:00 AM EST Ordered by an unspecified provider. Scanning Provider MEDIA MGR SCAN EXT O RDR/RSLT * POC, GLUCOSE (01/30/2024 7:32 PM EST) Glucometer, POC 150 65 - 199 mg/dL 01/30/2024 7:32 PM EST [facility] Comment:Supplemental ranges: <140 mg/dL before meals <180 mg/dL all other times of the day. Blood CAPILLARY BLOOD / Unknown 01/30/2024 7:32 PM EST 01/30/2024 7:32 PM EST Tor Balbuena MD POINT OF CARE TEST ORDERABLES Performing Organization Address [facility] Co de Phone Number [facility] [place] [address] * POC, GLUCOSE (01/30/2024 4:49 PM EST) Glucometer, POC 181 65 - 199 mg/dL 01/30/2024 4:50 PM EST [facility] Comment:Supplemental ranges: <140 mg/dL before meals <180 mg/dL all other times of the day. Blood CAPILLARY BLOOD / Unknown 01/30/2024 4:49 PM EST 01/30/2024 4:50 PM EST Tor Balbuena MD POINT OF CARE TEST ORDERABLES Performing Organization Address [facility] Co de Phone Number [facility] [place] [address] * (ABNORMAL) POC, GLUCOSE (01/30/2024 1:46 PM EST) Glucometer, POC 224(H) 65 - 199 mg/dL 01/30/2024 1:46 PM EST [facility] Comment:Supplemental ranges: <140 mg/dL before meals <180 mg/dL all other times of the day. Blood CAPILLARY BLOOD / Unknown 01/30/2024 1:46 PM EST 01/30/2024 1:46 PM EST Tor Balbuena MD POINT OF CARE TEST ORDERABLES Performing Organization Address City/[facility]/ZIP Co de Phone Number [facility] [place] [address] * (ABNORMAL) POC, GLUCOSE (01/30/2024 11:20 AM EST) Glucometer, POC 256(H) 65 - 199 mg/dL 01/30/2024 11:20 AM EST [facility] Comment:Supplemental ranges: <140 mg/dL before meals <180 mg/dL all other times of the day. Blood CAPILLARY BLOOD / Unknown 01/30/2024 11:20 AM EST 01/30/2024 11:20 AM EST Tor Balbuena MD POINT OF CARE TEST ORDERABLES Performing Organization Address [facility] Co de Phone Number [facility] [place] [address] * (ABNORMAL) POC, GLUCOSE (01/30/2024 7:37 AM EST) Glucometer, POC 211(H) 65 - 199 mg/dL 01/30/2024 7:38 AM EST [facility] Comment:Supplemental ranges: <140 mg/dL before meals <180 mg/dL all other times of the day. Blood CAPILLARY BLOOD / Unknown 01/30/2024 7:37 AM EST 01/30/2024 7:38 AM EST Tor Balbuena MD POINT OF CARE TEST ORDERABLES Performing Organization Address [facility] Phone Number [facility] [place] [address] * (ABNORMAL) POC, GLUCOSE (01/30/2024 3:49 AM EST) Glucometer, POC 203(H) 65 - 199 mg/dL 01/30/2024 3:50 AM EST [facility] Comment:Supplemental ranges: <140 mg/dL before meals <180 mg/dL all other times of the day. Blood CAPILLARY BLOOD / Unknown 01/30/2024 3:49 AM EST 01/30/2024 3:50 AM EST Tor Balbuena MD POINT OF CARE TEST ORDERABLES Performing Organization Address [facility] Co de Phone Number [facility] [place] [address] * Magnesium (01/30/2024 3:39 AM EST) Magnesium 0.95 0.69 - 1.07 mMol/L 01/30/2024 4:22 AM EST [facility] Blood VENOUS BLOOD SPECIMEN / Unknown Venipuncture / Unknown 01/30/2024 3:39 AM EST 01/30/2024 3:51 AM EST Tor Balbuena MD CHEMISTRY ORDERABL ES Performing Organization Address City/[facility]/ZIP Co de Phone Number [facility] [place] [address] * Phosphorus (01/30/2024 3:39 AM EST) Phosphorus 3.4 2.5 - 4.5 mg/dL 01/30/2024 4:22 AM [facility] Blood VENOUS BLOOD SPECIMEN / Unknown Venipuncture / Unknown 01/30/2024 3:39 AM EST 01/30/2024 3:51 AM EST Tor Balbuena MD CHEMISTRY ORDERABL ES Performing Organization Address City/[facility]/ZIP Co de Phone Number [facility] [place] [address] * (ABNORMAL) Comprehensive metabolic panel (01/30/2024 3:39 AM EST) Glucose 190 65 - 199 mg/dL 01/30/2024 4:22 AM [facility] Comment:Glucose Concentratio n >=200 mg/dL plus symptoms is consistent with Diabetes Mellitus. Blood Urea Nitrogen 15 10 - 20 mg/dL 01/30/2024 4:22 AM [facility] Creatinine 0.55(L) 0.80 - 1.50 mg/dL 01/30/2024 4:22 AM [facility] Sodium 136 135 - 145 mMol/L 01/30/2024 4:22 AM [facility] Potassium 3.8 3.5 - 5.0 mMol/L 01/30/2024 4:22 AM [facility] Chloride 98 98 - 107 mMol/L 01/30/2024 4:22 AM [facility] Carbon Dioxide 26 22 - 31 mMol/L 01/30/2024 4:22 AM [facility] Anion Gap 12 5 - 15 mMol/L 01/30/2024 4:22 AM [facility] Calcium 8.6 8.5 - 10.5 mg/dL 01/30/2024 4:22 AM [facility] Protein, Total 5.6(L) 6.1 - 8.0 g/dL 01/30/2024 4:22 AM [facility] Albumin 3.0(L) 3.2 - 5.2 g/dL 01/30/2024 4:22 AM [facility] Aspartate Aminotransferase 18 <=39 unit/L 01/30/2024 4:22 AM [facility] Alanine Aminotransferase 30 0 - 55 unit/L 01/30/2024 4:22 AM [facility] Alkaline Phosphatase 123 40 - 130 unit/L 01/30/2024 4:22 AM [facility] Bilirubin, Total 0.8 <=1.3 mg/dL 01/30/2024 4:22 AM [facility] Est Glomerular Filtration Rate - Male 103 mL/min/1. 73 m?? 01/30/2024 4:22 AM [facility] Comment: This patient's estimated GFR [...] EST Tor Balbuena MD CHEMISTRY ORDERABL ES [facility] [place] [address] * (ABNORMAL) CBC (with Diff) (01/30/2024 3:39 AM EST) White Blood Cell 7.34 4.00 - 9.50 x10(3)/mc L 01/30/2024 3:57 AM [facility] Red Blood Cell 2.62(L) 4.58 - 5.54 x10(6)/mc L 01/30/2024 3:57 AM [facility] Hemoglobin 8.1(L) 13.7 - 16.5 g/dL 01/30/2024 3:57 AM [facility] Hematocrit 24.3(L) 40.5 - 48.5 % 01/30/2024 3:57 AM [facility] Mean Cell Volume 92.7 82.9 - 93.1 fL 01/30/2024 3:57 AM [facility] Mean Cell Hemoglobin 30.9 27.5 - 32.1 pg 01/30/2024 3:57 AM [facility] Mean Cell Hemoglobin Concentration 33.3 32.0 - 35.7 g/dL 01/30/2024 3:57 AM [facility] Platelet 221 145 - 357 x10(3)/mc L 01/30/2024 3:57 AM [facility] Mean Platelet Volume 9.1 7.6 - 12.9 fL 01/30/2024 3:57 AM [facility] RDW Standard Deviation 48.7(H) 36.0 - 45.0 fL 01/30/2024 3:57 AM [facility] RDW coefficient of variation 14.5(H) 11.4 - 13.8 % 01/30/2024 3:57 AM [facility] NRBC% auto 0.0 % 01/30/2024 3:57 AM [facility] NRBC Absolute <0.01 <0.01 x10(3)/mc L 01/30/2024 3:57 AM [facility] Neutrophil % 80.2 % 01/30/2024 3:57 AM [facility] Neutrophil Absolute (ANC) - Automated 5.88 1.70 - 6.10 x10(3)/mc L 01/30/2024 3:57 AM [facility] Lymph % 8.7 % 01/30/2024 3:57 AM [facility] Lymph Absolute 0.64(L) 0.90 - 3.20 x10(3)/mc L 01/30/2024 3:57 AM [facility] Monocyte % 8.0 % 01/30/2024 3:57 AM [facility] Monocyte Absolute 0.59 0.30 - 0.90 x10(3)/mc L 01/30/2024 3:57 AM [facility] Eos % 1.6 % 01/30/2024 3:57 AM [facility] Eos Absolute 0.12 0.00 - 0.40 x10(3)/mc L 01/30/2024 3:57 AM [facility] Basophil % 0.1 % 01/30/2024 3:57 AM [facility] Baso Absolute <0.04 0.00 - 0.10 x10(3)/mc L 01/30/2024 3:57 AM [facility] Immature Gran % 1.4 % 3:57 AM [facility] Immature Gran Absolute 0.10(H) 0.00 - 0.04 x10(3)/mc L 01/30/2024 3:57 AM [facility] Blood VENOUS BLOOD SPECIMEN / Unknown Venipuncture / Unknown 01/30/2024 3:39 AM EST 01/30/2024 3:51 AM EST Tor Balbuena MD HEMATOLOGY ORDERAB LES [facility] [place] [address] * POC, GLUCOSE (01/29/2024 11:22 PM EST) Glucometer, POC 159 65 - 199 mg/dL 01/29/2024 11:22 PM EST [facility] Comment:Supplemental ranges: <140 mg/dL before meals <180 mg/dL all other times of the day. Blood CAPILLARY BLOOD / Unknown 01/29/2024 11:22 PM EST 01/29/2024 11:22 PM EST Tor Balbuena MD POINT OF CARE TEST ORDERABLES Performing Organization Address City/[facility]/ZIP Co de Phone Number [facility] [place] [address] * POC, GLUCOSE (01/29/2024 7:41 PM EST) Glucometer, POC 184 65 - 199 mg/dL 01/29/2024 7:41 PM EST [facility] Comment:Supplemental ranges: <140 mg/dL before meals <180 mg/dL all other times of the day. Blood CAPILLARY BLOOD / Unknown 01/29/2024 7:41 PM EST 01/29/2024 7:41 PM EST Tor Balbuena MD POINT OF CARE TEST ORDERABLES [facility] [place] [address] * POC, GLUCOSE (01/29/2024 3:55 PM EST) Glucometer, POC 194 65 - 199 mg/dL 01/29/2024 3:55 PM EST [facility] Comment:Supplemental ranges: <140 mg/dL before meals <180 mg/dL all other times of the day. Blood CAPILLARY BLOOD / Unknown 01/29/2024 3:55 PM EST 01/29/2024 3:55 PM EST Tor Balbuena MD POINT OF CARE TEST ORDERABLES Performing Organization Address [facility] Co de Phone Number [facility] [place] [address] * POC, GLUCOSE (01/29/2024 12:01 PM EST) Glucometer, POC 181 65 - 199 mg/dL 01/29/2024 12:01 PM EST [facility] Comment:Supplemental ranges: <140 mg/dL before meals <180 mg/dL all other times of the day. Blood CAPILLARY BLOOD / Unknown 01/29/2024 12:01 PM EST 01/29/2024 12:01 PM EST Tor Balbuena MD POINT OF CARE TEST ORDERABLES Performing Organization Address [facility] Co de Phone Number [facility] [place] [address] * (ABNORMAL) POC, GLUCOSE (01/29/2024 7:59 AM EST) Glucometer, POC 206(H) 65 - 199 mg/dL 01/29/2024 8:00 AM EST [facility] Comment:Supplemental ranges: <140 mg/dL before meals <180 mg/dL all other times of the day. Blood CAPILLARY BLOOD / Unknown 01/29/2024 7:59 AM EST 01/29/2024 8:00 AM EST Tor Balbuena MD POINT OF CARE TEST ORDERABLES Performing Organization Address City/[facility]/ZIP Co de Phone Number [facility] [place] [address] * (ABNORMAL) POC, GLUCOSE (01/29/2024 4:10 AM EST) Glucometer, POC 200(H) 65 - 199 mg/dL 01/29/2024 4:10 AM EST [facility] Comment:Supplemental ranges: <140 mg/dL before meals <180 mg/dL all other times of the day. Blood CAPILLARY BLOOD / Unknown 01/29/2024 4:10 AM EST 01/29/2024 4:11 AM EST Tor Balbuena MD POINT OF CARE TEST ORDERABLES Performing Organization Address City/[facility]/ZIP Co de Phone Number [facility] [place] [address] * Magnesium (01/29/2024 3:56 AM EST) Magnesium 0.86 0.69 - 1.07 mMol/L 01/29/2024 4:41 AM EST [facility] Blood VENOUS BLOOD SPECIMEN / Unknown Venipuncture / Unknown 01/29/2024 3:56 AM EST 01/29/2024 4:12 AM EST Tor Balbuena MD CHEMISTRY ORDERABL ES Performing Organization Address [facility] Co de Phone Number [facility] [place] [address] * Phosphorus (01/29/2024 3:56 AM EST) Phosphorus 3.2 2.5 - 4.5 mg/dL 01/29/2024 4:41 AM EST [facility] Blood VENOUS BLOOD SPECIMEN / Unknown Venipuncture / Unknown 01/29/2024 3:56 AM EST 01/29/2024 4:12 AM EST Tor Balbuena MD CHEMISTRY ORDERABL ES Performing Organization Address City/[facility] Co de Phone Number [facility] [place] [address] * (ABNORMAL) Comprehensive metabolic panel (01/29/2024 3:56 AM EST) Glucose 205(H) 65 - 199 mg/dL 01/29/2024 4:41 AM EST [facility] Comment:Glucose Concentratio n >=200 mg/dL plus symptoms is consistent with Diabetes Mellitus. Blood Urea Nitrogen 12 10 - 20 mg/dL 01/29/2024 4:41 AM EST [facility] Creatinine 0.50(L) 0.80 - 1.50 mg/dL 01/29/2024 4:41 AM [facility] Sodium 136 135 - 145 mMol/L 01/29/2024 4:41 AM [facility] Potassium 3.6 3.5 - 5.0 mMol/L 01/29/2024 4:41 AM [facility] Chloride 99 98 - 107 mMol/L 01/29/2024 4:41 AM [facility] Carbon Dioxide 30 22 - 31 mMol/L 01/29/2024 4:41 AM [facility] Anion Gap 7 5 - 15 mMol/L 01/29/2024 4:41 AM [facility] Calcium 8.5 8.5 - 10.5 mg/dL 01/29/2024 4:41 AM [facility] Protein, Total 5.4(L) 6.1 - 8.0 g/dL 01/29/2024 4:41 AM [facility] Albumin 2.8(L) 3.2 - 5.2 g/dL 01/29/2024 4:41 AM [facility] Aspartate Aminotransferase 17 <=39 unit/L 01/29/2024 4:41 AM [facility] Alanine Aminotransferase 39 0 - 55 unit/L 01/29/2024 4:41 AM [facility] Alkaline Phosphatase 121 40 - 130 unit/L 01/29/2024 4:41 AM [facility] Bilirubin, Total 0.7 <=1.3 mg/dL 01/29/2024 4:41 AM [facility] Est Glomerular Filtration Rate - Male 106 mL/min/1. 73 m?? 01/29/2024 4:41 AM [facility] Comment: This patient's estimated GFR [...] EST Tor Balbuena MD CHEMISTRY ORDERABL ES [facility] [place] [address] * (ABNORMAL) CBC (with Diff) (01/29/2024 3:56 AM EST) White Blood Cell 7.65 4.00 - 9.50 x10(3)/mc L 01/29/2024 4:17 AM [facility] Red Blood Cell 2.66(L) 4.58 - 5.54 x10(6)/mc L 01/29/2024 4:17 AM [facility] Hemoglobin 8.2(L) 13.7 - 16.5 g/dL 01/29/2024 4:17 AM [facility] Hematocrit 24.8(L) 40.5 - 48.5 % 01/29/2024 4:17 AM [facility] Mean Cell Volume 93.2(H) 82.9 - 93.1 fL 01/29/2024 4:17 AM [facility] Mean Cell Hemoglobin 30.8 27.5 - 32.1 pg 01/29/2024 4:17 AM [facility] Mean Cell Hemoglobin Concentration 33.1 32.0 - 35.7 g/dL 01/29/2024 4:17 AM [facility] Platelet 184 145 - 357 x10(3)/mc L 01/29/2024 4:17 AM [facility] Mean Platelet Volume 9.2 7.6 - 12.9 fL 01/29/2024 4:17 AM [facility] RDW Standard Deviation 49.5(H) 36.0 - 45.0 fL 01/29/2024 4:17 AM [facility] RDW coefficient of variation 14.6(H) 11.4 - 13.8 % 01/29/2024 4:17 AM [facility] NRBC% auto 0.0 % 01/29/2024 4:17 AM [facility] NRBC Absolute <0.01 <0.01 x10(3)/mc L 01/29/2024 4:17 AM [facility] Neutrophil % 84.3 % 01/29/2024 4:17 AM [facility] Neutrophil Absolute (ANC) - Automated 6.45(H) 1.70 - 6.10 x10(3)/mc L 01/29/2024 4:17 AM [facility] Lymph % 5.9 % 01/29/2024 4:17 AM [facility] Lymph Absolute 0.45(L) 0.90 - 3.20 x10(3)/mc L 01/29/2024 4:17 AM [facility] Monocyte % 7.5 % 01/29/2024 4:17 AM [facility] Monocyte Absolute 0.57 0.30 - 0.90 x10(3)/mc L 01/29/2024 4:17 AM [facility] Eos % 1.4 % 01/29/2024 4:17 AM [facility] Eos Absolute 0.11 0.00 - 0.40 x10(3)/mc L 01/29/2024 4:17 AM [facility] Basophil % 0.1 % 01/29/2024 4:17 AM [facility] Baso Absolute <0.04 0.00 - 0.10 x10(3)/mc L 01/29/2024 4:17 AM [facility] Immature Gran % 0.8 % 4:17 AM EST [facility] Immature Gran Absolute 0.06(H) 0.00 - 0.04 x10(3)/mc L 01/29/2024 4:17 AM EST [facility] Blood VENOUS BLOOD SPECIMEN / Unknown Venipuncture / Unknown 01/29/2024 3:56 AM EST 01/29/2024 4:12 AM EST Tor Balbuena MD HEMATOLOGY ORDERAB LES [facility] [place] [address] * POC, GLUCOSE (01/28/2024 11:21 PM EST) [facility] Glucometer, POC 191 65 - 199 mg/dL 01/28/2024 11:21 PM [facility] Comment:Supplemental ranges: <140 mg/dL before meals <180 mg/dL all other times of the day. Blood CAPILLARY BLOOD / Unknown 01/28/2024 11:21 PM EST 01/28/2024 11:21 PM EST Tor Balbuena MD POINT OF CARE TEST ORDERABLES Performing Organization Address City/[facility]/ZIP Co de Phone Number [facility] [place] [address] * (ABNORMAL) Hemogram (01/28/2024 8:52 PM EST) White Blood Cell 7.33 4.00 - 9.50 x10(3)/mc L 01/28/2024 9:06 PM EST [facility] Red Blood Cell 2.63(L) 4.58 - 5.54 x10(6)/mc L 01/28/2024 9:06 PM EST [facility] Hemoglobin 8.2(L) 13.7 - 16.5 g/dL 01/28/2024 9:06 PM [facility] Hematocrit 24.3(L) 40.5 - 48.5 % 01/28/2024 9:06 PM [facility] Mean Cell Volume 92.4 82.9 - 93.1 fL 01/28/2024 9:06 PM [facility] Mean Cell Hemoglobin 31.2 27.5 - 32.1 pg 01/28/2024 9:06 PM [facility] Mean Cell Hemoglobin Concentration 33.7 32.0 - 35.7 g/dL 01/28/2024 9:06 PM [facility] Platelet 175 145 - 357 x10(3)/mc L 01/28/2024 9:06 PM [facility] Mean Platelet Volume 8.9 7.6 - 12.9 fL 01/28/2024 9:06 PM [facility] RDW Standard Deviation 49.1(H) 36.0 - 45.0 fL 01/28/2024 9:06 PM [facility] RDW coefficient of variation 14.5(H) 11.4 - 13.8 % 01/28/2024 9:06 PM [facility] NRBC% auto 0.0 % 01/28/2024 9:06 PM [facility] NRBC Absolute <0.01 <0.01 x10(3)/mc L 01/28/2024 9:06 PM [facility] Blood VENOUS BLOOD SPECIMEN / Unknown Venipuncture / Unknown 01/28/2024 8:52 PM EST 01/28/2024 9:02 PM EST Tor Balbuena MD HEMATOLOGY ORDERAB LES [facility] [place] [address] * POC, GLUCOSE (01/28/2024 7:30 PM EST) [facility] Glucometer, POC 194 65 - 199 mg/dL 01/28/2024 7:30 PM [facility] Comment:Supplemental ranges: <140 mg/dL before meals <180 mg/dL all other times of the day. Blood CAPILLARY BLOOD / Unknown 01/28/2024 7:30 PM EST 01/28/2024 7:30 PM EST Tor Balbuena MD POINT OF CARE TEST ORDERABLES Performing Organization Address [facility] Co de Phone Number [facility] [place] [address] * POC, GLUCOSE (01/28/2024 3:43 PM EST) [facility] Glucometer, POC 191 65 - 199 mg/dL 01/28/2024 3:43 PM EST [facility] Comment:Supplemental ranges: <140 mg/dL before meals <180 mg/dL all other times of the day. Blood CAPILLARY BLOOD / Unknown 01/28/2024 3:43 PM EST 01/28/2024 3:43 PM EST Tor Balbuena MD POINT OF CARE TEST ORDERABLES Performing Organization Address [facility] Co de Phone Number [facility] [place] [address] * (ABNORMAL) CBC (with Diff) (01/28/2024 1:04 PM EST) [facility] White Blood Cell 7.98 4.00 - 9.50 x10(3)/mc L 01/28/2024 1:42 PM EST [facility] Red Blood Cell 2.63(L) 4.58 - 5.54 x10(6)/mc L 01/28/2024 1:42 PM EST [facility] Hemoglobin 8.2(L) 13.7 - 16.5 g/dL 01/28/2024 1:42 PM [facility] Hematocrit 24.3(L) 40.5 - 48.5 % 01/28/2024 1:42 PM [facility] Mean Cell Volume 92.4 82.9 - 93.1 fL 01/28/2024 1:42 PM [facility] Mean Cell Hemoglobin 31.2 27.5 - 32.1 pg 01/28/2024 1:42 PM [facility] Mean Cell Hemoglobin Concentration 33.7 32.0 - 35.7 g/dL 01/28/2024 1:42 PM [facility] Platelet 167 145 - 357 x10(3)/mc L 01/28/2024 1:42 PM [facility] Mean Platelet Volume 9.4 7.6 - 12.9 fL 01/28/2024 1:42 PM [facility] RDW Standard Deviation 48.3(H) 36.0 - 45.0 fL 01/28/2024 1:42 PM [facility] RDW coefficient of variation 14.4(H) 11.4 - 13.8 % 01/28/2024 1:42 PM [facility] NRBC% auto 0.3 % 01/28/2024 1:42 PM [facility] NRBC Absolute 0.02(H) <0.01 x10(3)/mc L 01/28/2024 1:42 PM [facility] Neutrophil % 82.5 % 01/28/2024 1:42 PM [facility] Neutrophil Absolute (ANC) - Automated 6.58(H) 1.70 - 6.10 x10(3)/mc L 01/28/2024 1:42 PM [facility] Lymph % 5.9 % 01/28/2024 1:42 PM [facility] Lymph Absolute 0.47(L) 0.90 - 3.20 x10(3)/mc L 01/28/2024 1:42 PM [facility] Monocyte % 8.9 % 01/28/2024 1:42 PM [facility] Monocyte Absolute 0.71 0.30 - 0.90 x10(3)/mc L 01/28/2024 1:42 PM [facility] Eos % 1.6 % 01/28/2024 1:42 PM [facility] Eos Absolute 0.13 0.00 - 0.40 x10(3)/mc L 01/28/2024 1:42 PM EST [facility] Basophil % 0.1 % 01/28/2024 1:42 PM EST [facility] Baso Absolute <0.04 0.00 - 0.10 x10(3)/mc L 01/28/2024 1:42 PM EST [facility] Immature Gran % 1.0 % 1:42 PM EST [facility] Immature Gran Absolute 0.08(H) 0.00 - 0.04 x10(3)/mc L 01/28/2024 1:42 PM EST [facility] Blood VENOUS BLOOD SPECIMEN / Unknown Venipuncture / Unknown 01/28/2024 1:04 PM EST 01/28/2024 1:30 PM EST Tor Balbuena MD HEMATOLOGY ORDERAB LES Performing Organization Address City/[facility]/ZIP Co de Phone Number [facility] [place] [address] * (ABNORMAL) POC, GLUCOSE (01/28/2024 12:08 PM EST) Glucometer, POC 206(H) 65 - 199 mg/dL 01/28/2024 12:08 PM EST [facility] Comment:Supplemental ranges: <140 mg/dL before meals <180 mg/dL all other times of the day. Blood CAPILLARY BLOOD / Unknown 01/28/2024 12:08 PM EST 01/28/2024 12:08 PM EST Tor Balbuena MD POINT OF CARE TEST ORDERABLES Performing Organization Address City/[facility]/ZIP Co de Phone Number [facility] [place] [address] * (ABNORMAL) POC, GLUCOSE (01/28/2024 7:52 AM EST) Glucometer, POC 209(H) 65 - 199 mg/dL 01/28/2024 7:53 AM EST [facility] Comment:Supplemental ranges: <140 mg/dL before meals <180 mg/dL all other times of the day. Blood CAPILLARY BLOOD / Unknown 01/28/2024 7:52 AM EST 01/28/2024 7:53 AM EST Tor Balbuena MD POINT OF CARE TEST ORDERABLES Performing Organization Address City/[facility] Co de Phone Number [facility] [place] [address] * POC, GLUCOSE (01/28/2024 3:53 AM EST) Glucometer, POC 185 65 - 199 mg/dL 01/28/2024 3:53 AM EST [facility] Comment:Supplemental ranges: <140 mg/dL before meals <180 mg/dL all other times of the day. Blood CAPILLARY BLOOD / Unknown 01/28/2024 3:53 AM EST 01/28/2024 3:53 AM EST Tor Balbuena MD POINT OF CARE TEST ORDERABLES Performing Organization Address [facility] Co de Phone Number [facility] [place] [address] * Magnesium (01/28/2024 3:39 AM EST) Magnesium 0.81 0.69 - 1.07 mMol/L 01/28/2024 4:13 AM EST [facility] Blood VENOUS BLOOD SPECIMEN / Unknown Venipuncture / Unknown 01/28/2024 3:39 AM EST 01/28/2024 3:43 AM EST Tor Balbuena MD CHEMISTRY ORDERABL ES Performing Organization Address City/[facility] Co de Phone Number [facility] [place] [address] * Phosphorus (01/28/2024 3:39 AM EST) Phosphorus 2.9 2.5 - 4.5 mg/dL 01/28/2024 4:13 AM [facility] Blood VENOUS BLOOD SPECIMEN / Unknown Venipuncture / Unknown 01/28/2024 3:39 AM EST 01/28/2024 3:43 AM EST Tor Balbuena MD CHEMISTRY ORDERABL ES [facility] [place] [address] * (ABNORMAL) Comprehensive metabolic panel (01/28/2024 3:39 AM EST) Glucose 169 65 - 199 mg/dL 01/28/2024 4:13 AM [facility] Comment:Glucose Concentratio n >=200 mg/dL plus symptoms is consistent with Diabetes Mellitus. Blood Urea Nitrogen 9(L) 10 - 20 mg/dL 01/28/2024 4:13 AM [facility] Creatinine 0.51(L) 0.80 - 1.50 mg/dL 01/28/2024 4:13 AM [facility] Sodium 137 135 - 145 mMol/L 01/28/2024 4:13 AM [facility] Potassium 3.2(L) 3.5 - 5.0 mMol/L 01/28/2024 4:13 AM [facility] Chloride 100 98 - 107 mMol/L 01/28/2024 4:13 AM [facility] Carbon Dioxide 29 22 - 31 mMol/L 01/28/2024 4:13 AM [facility] Anion Gap 8 5 - 15 mMol/L 01/28/2024 4:13 AM [facility] Calcium 8.3(L) 8.5 - 10.5 mg/dL 01/28/2024 4:13 AM [facility] Protein, Total 4.9(L) 6.1 - 8.0 g/dL 01/28/2024 4:13 AM [facility] Albumin 2.9(L) 3.2 - 5.2 g/dL 01/28/2024 4:13 AM EST [facility] Aspartate Aminotransferase 19 <=39 unit/L 01/28/2024 4:13 AM EST [facility] Alanine Aminotransferase 45 0 - 55 unit/L 01/28/2024 4:13 AM EST [facility] Alkaline Phosphatase 123 40 - 130 unit/L 01/28/2024 4:13 AM EST [facility] Bilirubin, Total 0.8 <=1.3 mg/dL 01/28/2024 4:13 AM EST [facility] Est Glomerular Filtration Rate - Male 105 mL/min/1. 73 m?? 01/28/2024 4:13 AM EST [facility] Comment: This patient's estimated [...] EST Tor Balbuena MD CHEMISTRY ORDERABL ES [facility] [place] [address] * (ABNORMAL) CBC (with Diff) (01/28/2024 3:39 AM EST) White Blood Cell 6.91 4.00 - 9.50 x10(3)/mc L 01/28/2024 3:52 AM EST [facility] Red Blood Cell 2.61(L) 4.58 - 5.54 x10(6)/mc L 01/28/2024 3:52 AM [facility] Hemoglobin 8.1(L) 13.7 - 16.5 g/dL 01/28/2024 3:52 AM [facility] Hematocrit 24.0(L) 40.5 - 48.5 % 01/28/2024 3:52 AM [facility] Mean Cell Volume 92.0 82.9 - 93.1 fL 01/28/2024 3:52 AM [facility] Mean Cell Hemoglobin 31.0 27.5 - 32.1 pg 01/28/2024 3:52 AM [facility] Mean Cell Hemoglobin Concentration 33.8 32.0 - 35.7 g/dL 01/28/2024 3:52 AM [facility] Platelet 160 145 - 357 x10(3)/mc L 01/28/2024 3:52 AM [facility] Mean Platelet Volume 9.1 7.6 - 12.9 fL 01/28/2024 3:52 AM [facility] RDW Standard Deviation 48.2(H) 36.0 - 45.0 fL 01/28/2024 3:52 AM [facility] RDW coefficient of variation 14.2(H) 11.4 - 13.8 % 01/28/2024 3:52 AM [facility] NRBC% auto 0.0 % 01/28/2024 3:52 AM [facility] NRBC Absolute <0.01 <0.01 x10(3)/mc L 01/28/2024 3:52 AM [facility] Neutrophil % 81.1 % 01/28/2024 3:52 AM [facility] Neutrophil Absolute (ANC) - Automated 5.60 1.70 - 6.10 x10(3)/mc L 01/28/2024 3:52 AM [facility] Lymph % 7.8 % 01/28/2024 3:52 AM [facility] Lymph Absolute 0.54(L) 0.90 - 3.20 x10(3)/mc L 01/28/2024 3:52 AM EST [facility] Monocyte % 8.4 % 01/28/2024 3:52 AM [facility] Monocyte Absolute 0.58 0.30 - 0.90 x10(3)/mc L 01/28/2024 3:52 AM [facility] Eos % 2.0 % 01/28/2024 3:52 AM [facility] Eos Absolute 0.14 0.00 - 0.40 x10(3)/mc L 01/28/2024 3:52 AM [facility] Basophil % 0.1 % 01/28/2024 3:52 AM [facility] Baso Absolute <0.04 0.00 - 0.10 x10(3)/mc L 01/28/2024 3:52 AM [facility] Immature Gran % 0.6 % 3:52 AM [facility] Immature Gran Absolute 0.04 0.00 - 0.04 x10(3)/mc L 01/28/2024 3:52 AM [facility] Blood VENOUS BLOOD SPECIMEN / Unknown Venipuncture / Unknown 01/28/2024 3:39 AM EST 01/28/2024 3:43 AM EST Tor Balbuena MD HEMATOLOGY ORDERAB LES Performing Organization Address City/State/[facility] Co de Phone Number [facility] [place] [address] * (ABNORMAL) Amylase (01/28/2024 3:39 AM EST) Amylase 9(L) 28 - 100 unit/L 01/28/2024 4:13 AM [facility] Blood VENOUS BLOOD SPECIMEN / Unknown Venipuncture / Unknown 01/28/2024 3:39 AM EST 01/28/2024 3:43 AM EST Tor Balbuena MD CHEMISTRY ORDERABL ES Performing Organization Address [facility]/ZIP Co de Phone Number [facility] [place] [address] * POC, GLUCOSE (01/27/2024 11:52 PM EST) Glucometer, POC 197 65 - 199 mg/dL 01/27/2024 11:52 PM EST [facility] Comment:Supplemental ranges: <140 mg/dL before meals <180 mg/dL all other times of the day. Blood CAPILLARY BLOOD / Unknown 01/27/2024 11:52 PM EST 01/27/2024 11:52 PM EST Tor Balbuena MD POINT OF CARE TEST ORDERABLES Performing Organization Address [facility] Co de Phone Number [facility] [place] [address] * Troponin-T, High Sensitivity 1 Hour (01/27/2024 8:24 PM EST) [facility] Troponin-T, High Sensitivity 17 <=22 ng/L 01/27/2024 9:01 PM EST [facility] Comment: This patient's troponin [...] value can be found in the [facility] Laboratory Test Catalog Troponin - https://[facility].testcatalog.org/catalogs/565/files/54989 Reference: Fourth [place] Definition of Myocardial Infarction. Journal of the [place] [employer] 2018;72:0181-8858 Troponin-T, HS 1 hr delta 1 ng/L 01/27/2024 9:01 PM EST [facility] Comment:The 1 hour Troponin T delta value is the absolute difference between the Troponin T concentrations of the initial and subsequent sample collected between 45 - 120 minutes following the initial collection. Blood VENOUS BLOOD SPECIMEN / Unknown Venipuncture / Unknown 01/27/2024 8:24 PM EST 01/27/2024 8:31 PM EST Tor Balbuena MD CHEMISTRY ORDERABL ES Performing Organization Address City/[facility]/ZIP Co de Phone Number [facility] [place] [address] * POC, GLUCOSE (01/27/2024 7:34 PM EST) Glucometer, POC 197 65 - 199 mg/dL 01/27/2024 7:34 PM EST [facility] Comment:Supplemental ranges: <140 mg/dL before meals <180 mg/dL all other times of the day. Blood CAPILLARY BLOOD / Unknown 01/27/2024 7:34 PM EST 01/27/2024 7:34 PM EST Tor Balbuena MD POINT OF CARE TEST ORDERABLES [facility] [place] [address] * (ABNORMAL) Phosphorus (01/27/2024 7:13 PM EST) Phosphorus 2.3(L) 2.5 - 4.5 mg/dL 01/27/2024 7:57 PM EST [facility] Blood VENOUS BLOOD SPECIMEN / Unknown Venipuncture / Unknown 01/27/2024 7:13 PM EST 01/27/2024 7:16 PM EST Tor Balbuena MD CHEMISTRY ORDERABL ES [facility] [place] [address] * Magnesium (01/27/2024 7:13 PM EST) [facility] Magnesium 0.79 0.69 - 1.07 mMol/L 01/27/2024 7:57 PM EST [facility] Blood VENOUS BLOOD SPECIMEN / Unknown Venipuncture / Unknown 01/27/2024 7:13 PM EST 01/27/2024 7:16 PM EST Tor Balbuena MD CHEMISTRY ORDERABL ES Performing Organization Address [facility]/ZIP Co de Phone Number [facility] [place] [address] * (ABNORMAL) Basic Metabolic Panel (01/27/2024 7:13 PM EST) [facility] Glucose 202(H) 65 - 199 mg/dL 01/27/2024 7:57 PM [facility] Comment:Glucose Concentratio n >=200 mg/dL plus symptoms is consistent with Diabetes Mellitus. Blood Urea Nitrogen 9(L) 10 - 20 mg/dL 01/27/2024 7:57 PM [facility] Creatinine 0.50(L) 0.80 - 1.50 mg/dL 01/27/2024 7:57 PM [facility] Sodium 135 135 - 145 mMol/L 01/27/2024 7:57 PM [facility] Potassium 3.6 3.5 - 5.0 mMol/L 01/27/2024 7:57 PM [facility] Chloride 100 98 - 107 mMol/L 01/27/2024 7:57 PM [facility] Carbon Dioxide 30 22 - 31 mMol/L 01/27/2024 7:57 PM [facility] Anion Gap 5 5 - 15 mMol/L 01/27/2024 7:57 PM [facility] Calcium 8.1(L) 8.5 - 10.5 mg/dL 01/27/2024 7:57 PM EST [facility] Est Glomerular Filtration Rate - Male 106 mL/min/1. 73 m?? 01/27/2024 7:57 PM EST [facility] Comment: This patient's estimated [...] EST Tor Balbuena MD CHEMISTRY ORDERABL ES [facility] [place] [address] * Troponin-T, High Sensitivity (01/27/2024 7:13 PM EST) Troponin-T, High Sensitivity Initial 18 <=22 ng/L 01/27/2024 7:57 PM EST [facility] Comment: This patient's troponin [...] value can be found in the [facility] Laboratory Test Catalog Troponin - [email or web address] Reference: Fourth [place] Definition of Myocardial Infarction. Journal of the [place] [employer] 2018;72:7113-7075 Blood VENOUS BLOOD SPECIMEN / Unknown Venipuncture / Unknown 01/27/2024 7:13 PM EST 01/27/2024 7:16 PM EST Tor Balbuena MD CHEMISTRY ORDERABL ES Performing Organization Address [facility] [place] [address] * EKG 12 Lead (01/27/2024 6:57 PM EST) Ventricular rate 89 BPM MUSE SYSTEM Atrial Rate 89 BPM MUSE SYSTEM P-R Interval 168 ms MUSE SYSTEM QRS Duration 112 ms MUSE SYSTEM Q-T Interval 376 ms MUSE SYSTEM QTC Calculated (Bezet) 457 ms MUSE SYSTEM Calculated P Hodge 43 degrees MUSE SYSTEM Calculated R Hodge -17 degrees MUSE SYSTEM Calculated T Hodge 11 degrees MUSE SYSTEM INTERPRETATION Sinus rhythm with Premature supraventricular complexes Right bundle branch block Abnormal ECG When compared with ECG of 24-JAN-2024 21:38, Premature supraventricular complexes are now Present Right bundle branch block is now Present Confirmed by MD Tej, Dionisio ([id number]) on 01/28/2024 1:19:34 PM MUSE SYSTEM 01/27/2024 6:57 PM EST 01/28/2024 1:19 PM EST Tor Blabuena MD ECG ORDERABLES Performing Organization Address [facility] Co de Phone Number MUSE SYSTEM * (ABNORMAL) POC, GLUCOSE (01/27/2024 3:42 PM EST) Glucometer, POC 219(H) 65 - 199 mg/dL 01/27/2024 3:43 PM EST [facility] Comment:Supplemental ranges: <140 mg/dL before meals <180 mg/dL all other times of the day. Blood CAPILLARY BLOOD / Unknown 01/27/2024 3:42 PM EST 01/27/2024 3:43 PM EST Tor Balbuena MD POINT OF CARE TEST ORDERABLES Performing Organization Address City/[facility]/ZIP Co de Phone Number [facility] [place] [address] * Amylase Level Body Fluid (01/27/2024 3:16 PM EST) Amylase, Fluid <3 unit/L 01/27/2024 4:17 PM EST [facility] Comment: Reference intervals are unavailable for this test in body fluids. Comparison of this result with the concentration in blood serum or plasma is recommended. This test has not been cleared by the [place] FDA. Performance characteristics of this test for the analysis of body fluids were determined by [facility] in accordance with CLIA requirements. [...] analysis of body fluids were determined by [facility] in accordance with CLIA requirements. This laboratory is qualified under CLIA to perform high-complexity testing. Body Fluid Source Pietro Page 01/27/2024 4:17 PM EST [facility] Body Fluid PIETRO - PAGE DRAIN / Unknown Non Blood Collection / Unknown 01/27/2024 3:16 PM EST 01/27/2024 3:27 PM EST Tor Balbuena MD BODY FLUIDS AND ST OOLS ORDERABLES Performing Organization Address City/[facility]/ZIP Co de Phone Number [facility] [place] [address] * (ABNORMAL) POC, GLUCOSE (01/27/2024 12:09 PM EST) Glucometer, POC 202(H) 65 - 199 mg/dL 01/27/2024 12:09 PM EST [facility] Comment:Supplemental ranges: <140 mg/dL before meals <180 mg/dL all other times of the day. Blood CAPILLARY BLOOD / Unknown 01/27/2024 12:09 PM EST 01/27/2024 12:09 PM EST Tor Balbuena MD POINT OF CARE TEST ORDERABLES Performing Organization Address City/[facility]/ZIP Co de Phone Number [facility] [place] [address] * Triglyceride Level Body Fluid (01/27/2024 8:27 AM EST) Triglyceride, Fluid 48 mg/dL 01/26 9:29 AM EST [facility] Comment:Reference intervals are unavailable for this test in body fluids. Comparison of this result with the concentration in blood serum or plasma is recommended. This test has not been cleared by the [place] FDA. Performance characteristics of this test for the analysis of body fluids were determined by [facility] in accordance with CLIA requirements. This laboratory is qualified under CLIA to perform high-complexity testing. Body Fluid Source Pietro Page 01/27/2024 9:29 AM [facility] Body Fluid PIETRO - PAGE DRAIN / Unknown Non Blood Collection / Unknown 01/27/2024 8:27 AM EST 01/27/2024 8:45 AM EST Tor Balbuena MD BODY FLUIDS AND ST OOLS ORDERABLES [facility] [place] [address] * POC, GLUCOSE (01/27/2024 7:47 AM EST) Glucometer, POC 149 65 - 199 mg/dL 01/27/2024 7:48 AM EST [facility] Comment:Supplemental ranges: <140 mg/dL before meals <180 mg/dL all other times of the day. Blood CAPILLARY BLOOD / Unknown 01/27/2024 7:47 AM EST 01/27/2024 7:48 AM EST Tor Balbuena MD POINT OF CARE TEST ORDERABLES [facility] [place] [address] * CT Abdomen & Pelvis wwo Contrast (GI BLEED) (01/27/2024 3:55 AM EST) [employer] WORKSTATION ID [id number] RAD Anatomical Region Laterality Modality Abdomen, Pelvis [...] representative that requested your imaging first. ? Electronically signed by: Juan Montiel MD, [facility] ([phone]), at 01/27/2024 4:43 AM Narrative 01/27/2024 4:43 [...] healthcare representative that requested your imaging first. Electronically signed by: Juan Montiel MD, [facility]([phone]), at 01/27/2024 4:43 AM Tor Balbuena MD IMG CT ORDERABLES * ABORH RECHECK (PATIENT HISTORY FOUND) (01/27/2024 3:15 AM EST) ABORH Recheck Progress Complete 01/27/2024 5:01 AM EST [facility] Blood VENOUS BLOOD SPECIMEN / Unknown Venipuncture / Unknown 01/27/2024 3:15 AM EST 01/27/2024 3:20 AM EST Tor Balbuena MD BLOOD BANK LAB ORD ERABLES [facility] [place] [place] [address] * [place] and screen [place] [place] (01/27/2024 3:15 AM EST) ABORH Type O POSITIVE 01/27/2024 4:16 AM EST [facility] PATIENT HISTORY Found 01/27/2024 4:16 AM EST [facility] Expires at [id number] on: 01/30/2024 01/27/2024 4:16 AM EST [facility] ANTIBODY SCREEN AUTOMATED Negative 01/27/2024 4:16 AM EST [facility] T&S only valid at [facility] 01/27/2024 4:16 AM EST [facility] Blood VENOUS BLOOD SPECIMEN / Unknown Venipuncture / Unknown 01/27/2024 3:15 AM EST 01/27/2024 3:20 AM EST Narrative [facility] - 01/27/2024 4:16 AM EST This Type and Screen result is only valid at the [facility] Tor Balbuena MD BLOOD BANK LAB ORD ERABLES [facility] [place] [place] [address] * POC, GLUCOSE (01/27/2024 3:11 AM EST) Glucometer, POC 155 65 - 199 mg/dL 01/27/2024 3:11 AM EST [facility] Comment:Supplemental ranges: <140 mg/dL before meals <180 mg/dL all other times of the day. Blood CAPILLARY BLOOD / Unknown 01/27/2024 3:11 AM EST 01/27/2024 3:12 AM EST Tor Balbuena MD POINT OF CARE TEST ORDERABLES Performing Organization Address City/[facility]/ZIP Co de Phone Number [facility] [place] [address] * Triglyceride (01/27/2024 12:48 AM EST) Triglyceride 134 mg/dL 01/27/2024 11:42 AM EST [facility] Comment: Normal: <150 mg/dL Borderline High: 150-199 mg/dL High: 200-499 mg/dL Very High: > or =500 mg/dL Blood VENOUS BLOOD SPECIMEN / Unknown Venipuncture / Unknown 01/27/2024 12:48 AM EST 01/27/2024 12:54 AM EST Tor Balbuena MD CHEMISTRY ORDERABL ES Performing Organization Address City/[facility]/ZIP Co de Phone Number [facility] [place] [address] * Magnesium (01/27/2024 12:48 AM EST) Magnesium 0.78 0.69 - 1.07 mMol/L 01/27/2024 1:29 AM EST [facility] Blood VENOUS BLOOD SPECIMEN / Unknown Venipuncture / Unknown 01/27/2024 12:48 AM EST 01/27/2024 12:54 AM EST Tor Balbuena MD CHEMISTRY ORDERABL ES [facility] [place] [address] * Phosphorus (01/27/2024 12:48 AM EST) Phosphorus 2.9 2.5 - 4.5 mg/dL 01/27/2024 1:29 AM EST [facility] Blood VENOUS BLOOD SPECIMEN / Unknown Venipuncture / Unknown 01/27/2024 12:48 AM EST 01/27/2024 12:54 AM EST Tor Balbuena MD CHEMISTRY ORDERABL ES [facility] [place] [address] * (ABNORMAL) Comprehensive metabolic panel (01/27/2024 12:48 AM EST) Glucose 154 65 - 199 mg/dL 01/27/2024 1:29 AM [facility] Comment:Glucose Concentratio n >=200 mg/dL plus symptoms is consistent with Diabetes Mellitus. Blood Urea Nitrogen 10 10 - 20 mg/dL 01/27/2024 1:29 AM [facility] Creatinine 0.49(L) 0.80 - 1.50 mg/dL 01/27/2024 1:29 AM [facility] Sodium 137 135 - 145 mMol/L 01/27/2024 1:29 AM [facility] Potassium 3.3(L) 3.5 - 5.0 mMol/L 01/27/2024 1:29 AM [facility] Chloride 101 98 - 107 mMol/L 01/27/2024 1:29 AM [facility] Carbon Dioxide 27 22 - 31 mMol/L 01/27/2024 1:29 AM [facility] Anion Gap 9 5 - 15 mMol/L 01/27/2024 1:29 AM [facility] Calcium 8.0(L) 8.5 - 10.5 mg/dL 01/27/2024 1:29 AM [facility] Protein, Total 5.0(L) 6.1 - 8.0 g/dL 01/27/2024 1:29 AM [facility] Albumin 2.7(L) 3.2 - 5.2 g/dL 01/27/2024 1:29 AM [facility] Aspartate Aminotransferase 24 <=39 unit/L 01/27/2024 1:29 AM [facility] Alanine Aminotransferase 60(H) 0 - 55 unit/L 01/27/2024 1:29 AM EST [facility] Alkaline Phosphatase 124 40 - 130 unit/L 01/27/2024 1:29 AM EST [facility] Bilirubin, Total 0.8 <=1.3 mg/dL 01/27/2024 1:29 AM EST [facility] Est Glomerular Filtration Rate - Male 106 mL/min/1. 73 m?? 01/27/2024 1:29 AM EST [facility] Comment: This patient's estimated [...] EST Tor Balbuena MD CHEMISTRY ORDERABL ES [facility] [place] [address] * (ABNORMAL) CBC (with Diff) (01/27/2024 12:48 AM EST) White Blood Cell 4.35 4.00 - 9.50 x10(3)/mc L 01/27/2024 1:02 AM EST [facility] Red Blood Cell 2.73(L) 4.58 - 5.54 x10(6)/mc L 01/27/2024 1:02 AM [facility] Hemoglobin 8.5(L) 13.7 - 16.5 g/dL 01/27/2024 1:02 AM [facility] Hematocrit 25.2(L) 40.5 - 48.5 % 01/27/2024 1:02 AM [facility] Mean Cell Volume 92.3 82.9 - 93.1 fL 01/27/2024 1:02 AM [facility] Mean Cell Hemoglobin 31.1 27.5 - 32.1 pg 01/27/2024 1:02 AM [facility] Mean Cell Hemoglobin Concentration 33.7 32.0 - 35.7 g/dL 01/27/2024 1:02 AM [facility] Platelet 147 145 - 357 x10(3)/mc L 01/27/2024 1:02 AM [facility] Mean Platelet Volume 9.2 7.6 - 12.9 fL 01/27/2024 1:02 AM [facility] RDW Standard Deviation 48.4(H) 36.0 - 45.0 fL 01/27/2024 1:02 AM [facility] RDW coefficient of variation 14.3(H) 11.4 - 13.8 % 01/27/2024 1:02 AM [facility] NRBC% auto 0.0 % 01/27/2024 1:02 AM [facility] NRBC Absolute <0.01 <0.01 x10(3)/mc L 01/27/2024 1:02 AM [facility] Neutrophil % 75.8 % 01/27/2024 1:02 AM [facility] Neutrophil Absolute (ANC) - Automated 3.30 1.70 - 6.10 x10(3)/mc L 01/27/2024 1:02 AM [facility] Lymph % 11.5 % 01/27/2024 1:02 AM [facility] Lymph Absolute 0.50(L) 0.90 - 3.20 x10(3)/mc L 01/27/2024 1:02 AM [facility] Monocyte % 9.0 % 01/27/2024 1:02 AM [facility] Monocyte Absolute 0.39 0.30 - 0.90 x10(3)/mc L 01/27/2024 1:02 AM EST [facility] Eos % 3.0 % 01/27/2024 1:02 AM [facility] Eos Absolute 0.13 0.00 - 0.40 x10(3)/mc L 01/27/2024 1:02 AM EST [facility] Basophil % 0.2 % 01/27/2024 1:02 AM [facility] Baso Absolute <0.04 0.00 - 0.10 x10(3)/mc L 01/27/2024 1:02 AM [facility] Immature Gran % 0.5 % 1:02 AM [facility] Immature Gran Absolute <0.04 0.00 - 0.04 x10(3)/mc L 01/27/2024 1:02 AM [facility] Blood VENOUS BLOOD SPECIMEN / Unknown Venipuncture / Unknown 01/27/2024 12:48 AM EST 01/27/2024 12:55 AM EST Tor Balbuena MD HEMATOLOGY ORDERAB LES [facility] [place] [address] * (ABNORMAL) Amylase (01/27/2024 12:48 AM EST) Amylase 10(L) 28 - 100 unit/L 01/27/2024 1:29 AM EST [facility] Blood VENOUS BLOOD SPECIMEN / Unknown Venipuncture / Unknown 01/27/2024 12:48 AM EST 01/27/2024 12:54 AM EST Tor Balbuena MD CHEMISTRY ORDERABL ES [facility] [place] [address] * POC, GLUCOSE (01/27/2024 12:36 AM EST) Glucometer, POC 162 65 - 199 mg/dL 01/27/2024 12:36 AM EST [facility] Comment:Supplemental ranges: <140 mg/dL before meals <180 mg/dL all other times of the day. Blood CAPILLARY BLOOD / Unknown 01/27/2024 12:36 AM EST 01/27/2024 12:36 AM EST Tor Balbuena MD POINT OF CARE TEST ORDERABLES [facility] [place] [address] * POC, GLUCOSE (2024 8:03 PM EST) Glucometer, POC 139 65 - 199 mg/dL 2024 8:04 PM EST [facility] Comment:Supplemental ranges: <140 mg/dL before meals <180 mg/dL all other times of the day. Blood CAPILLARY BLOOD / Unknown 2024 8:03 PM EST 2024 8:04 PM EST Tor Balbuena MD POINT OF CARE TEST ORDERABLES Performing Organization Address City/[facility]/ZIP Co de Phone Number [facility] [place] [address] * POC, GLUCOSE (2024 4:14 PM EST) Glucometer, POC 143 65 - 199 mg/dL 2024 4:14 PM EST [facility] Comment:Supplemental ranges: <140 mg/dL before meals <180 mg/dL all other times of the day. Blood CAPILLARY BLOOD / Unknown 2024 4:14 PM EST 2024 4:14 PM EST Tor Balbuena MD POINT OF CARE TEST ORDERABLES [facility] [place] [address] * Amylase Level Body Fluid (2024 1:04 PM EST) Amylase, Fluid 4 unit/L 2024 5:31 PM [facility] Comment:Reference intervals are unavailable for this test in body fluids. Comparison of this result with the concentration in blood serum or plasma is recommended. This test has not been cleared by the [place] FDA. Performance characteristics of this test for the analysis of body fluids were determined by [facility] in accordance with CLIA requirements. This laboratory is qualified under CLIA to perform high-complexity testing. Body Fluid Source Heather drain 024 5:31 PM [facility] HEATHER Drain 2024 1:04 PM EST 2024 1:10 PM EST Tor Balbuena MD BODY FLUIDS AND ST OOLS ORDERABLES [facility] [place] [address] * POC, GLUCOSE (2024 11:40 AM EST) Glucometer, POC 140 65 - 199 mg/dL 2024 11:40 AM EST [facility] Comment:Supplemental ranges: <140 mg/dL before meals <180 mg/dL all other times of the day. Blood CAPILLARY BLOOD / Unknown 2024 11:40 AM EST 2024 11:41 AM EST Tor Balbuena MD POINT OF CARE TEST ORDERABLES [facility] [place] [address] * POC, GLUCOSE (2024 8:20 AM EST) Glucometer, POC 182 65 - 199 mg/dL 2024 8:20 AM EST [facility] Comment:Supplemental ranges: <140 mg/dL before meals <180 mg/dL all other times of the day. Blood CAPILLARY BLOOD / Unknown 2024 8:20 AM EST 2024 8:20 AM EST Tor Balbuena MD POINT OF CARE TEST ORDERABLES Performing Organization Address City/[facility] Co de Phone Number [facility] [place] [address] * POC, GLUCOSE (2024 5:04 AM EST) Glucometer, POC 155 65 - 199 mg/dL 2024 5:04 AM EST [facility] Comment:Supplemental ranges: <140 mg/dL before meals <180 mg/dL all other times of the day. Blood CAPILLARY BLOOD / Unknown 2024 5:04 AM EST 2024 5:04 AM EST Tor Balbuena MD POINT OF CARE TEST ORDERABLES Performing Organization Address [facility] Co de Phone Number [facility] [place] [address] * POC, GLUCOSE (2024 12:24 AM EST) Glucometer, POC 146 65 - 199 mg/dL 2024 12:24 AM EST [facility] Comment:Supplemental ranges: <140 mg/dL before meals <180 mg/dL all other times of the day. Blood CAPILLARY BLOOD / Unknown 2024 12:24 AM EST 2024 12:24 AM EST Tor Balbuena MD POINT OF CARE TEST ORDERABLES Performing Organization Address City/[facility] Co de Phone Number [facility] [place] [address] * Magnesium (2024 12:22 AM EST) Magnesium 0.82 0.69 - 1.07 mMol/L 2024 1:09 AM EST [facility] Blood VENOUS BLOOD SPECIMEN / Unknown Venipuncture / Unknown 2024 12:22 AM EST 2024 12:35 AM EST Tor Balbuena MD CHEMISTRY ORDERABL ES Performing Organization Address [facility]/ZIP Co de Phone Number [facility] [place] [address] * (ABNORMAL) Phosphorus (2024 12:22 AM EST) Phosphorus 2.1(L) 2.5 - 4.5 mg/dL 2024 1:09 AM [facility] Blood VENOUS BLOOD SPECIMEN / Unknown Venipuncture / Unknown 2024 12:22 AM EST 2024 12:35 AM EST Tor Balbuena MD CHEMISTRY ORDERABL ES [facility] [place] [address] * (ABNORMAL) Comprehensive metabolic panel (2024 12:22 AM EST) Glucose 149 65 - 199 mg/dL 2024 1:09 AM [facility] Comment:Glucose Concentratio n >=200 mg/dL plus symptoms is consistent with Diabetes Mellitus. Blood Urea Nitrogen 8(L) 10 - 20 mg/dL 2024 1:09 AM [facility] Creatinine 0.51(L) 0.80 - 1.50 mg/dL 2024 1:09 AM [facility] Sodium 138 135 - 145 mMol/L 2024 1:09 AM [facility] Potassium 3.6 3.5 - 5.0 mMol/L 2024 1:09 AM [facility] Chloride 102 98 - 107 mMol/L 2024 1:09 AM [facility] Carbon Dioxide 30 22 - 31 mMol/L 2024 1:09 AM [facility] Anion Gap 6 5 - 15 mMol/L 2024 1:09 AM [facility] Calcium 8.1(L) 8.5 - 10.5 mg/dL 2024 1:09 AM [facility] Protein, Total 5.0(L) 6.1 - 8.0 g/dL 2024 1:09 AM [facility] Albumin 2.8(L) 3.2 - 5.2 g/dL 2024 1:09 AM [facility] Aspartate Aminotransferase 39 <=39 unit/L 2024 1:09 AM [facility] Alanine Aminotransferase 89(H) 0 - 55 unit/L 2024 1:09 AM [facility] Alkaline Phosphatase 126 40 - 130 unit/L 2024 1:09 AM [facility] Bilirubin, Total 0.9 <=1.3 mg/dL 2024 1:09 AM [facility] Est Glomerular Filtration Rate - Male 105 mL/min/1. 73 m?? 2024 1:09 AM [facility] Comment: This patient's estimated GFR [...] EST Tor Balbuena MD CHEMISTRY ORDERABL ES [facility] [place] [address] * (ABNORMAL) CBC (with Diff) (2024 12:22 AM EST) White Blood Cell 4.88 4.00 - 9.50 x10(3)/mc L 2024 12:43 AM [facility] Red Blood Cell 2.83(L) 4.58 - 5.54 x10(6)/mc L 2024 12:43 AM [facility] Hemoglobin 8.7(L) 13.7 - 16.5 g/dL 2024 12:43 AM [facility] Hematocrit 26.2(L) 40.5 - 48.5 % 2024 12:43 AM [facility] Mean Cell Volume 92.6 82.9 - 93.1 fL 2024 12:43 AM [facility] Mean Cell Hemoglobin 30.7 27.5 - 32.1 pg 2024 12:43 AM [facility] Mean Cell Hemoglobin Concentration 33.2 32.0 - 35.7 g/dL 2024 12:43 AM [facility] Platelet 126(L) 145 - 357 x10(3)/mc L 2024 12:43 AM [facility] Mean Platelet Volume 9.4 7.6 - 12.9 fL 2024 12:43 AM [facility] RDW Standard Deviation 49.8(H) 36.0 - 45.0 fL 2024 12:43 AM [facility] RDW coefficient of variation 14.6(H) 11.4 - 13.8 % 2024 12:43 AM [facility] NRBC% auto 0.0 % 2024 12:43 AM [facility] NRBC Absolute <0.01 <0.01 x10(3)/mc L 2024 12:43 AM [facility] Neutrophil % 77.7 % 2024 12:43 AM [facility] Neutrophil Absolute (ANC) - Automated 3.79 1.70 - 6.10 x10(3)/mc L 2024 12:43 AM [facility] Lymph % 9.6 % 2024 12:43 AM [facility] Lymph Absolute 0.47(L) 0.90 - 3.20 x10(3)/mc L 2024 12:43 AM [facility] Monocyte % 10.2 % 2024 12:43 AM [facility] Monocyte Absolute 0.50 0.30 - 0.90 x10(3)/mc L 2024 12:43 AM [facility] Eos % 2.3 % 2024 12:43 AM [facility] Eos Absolute 0.11 0.00 - 0.40 x10(3)/mc L 2024 12:43 AM [facility] Basophil % 0.0 % 2024 12:43 AM [facility] Baso Absolute <0.04 0.00 - 0.10 x10(3)/mc L 2024 12:43 AM [facility] Immature Gran % 0.2 % 12:43 AM [facility] Immature Gran Absolute <0.04 0.00 - 0.04 x10(3)/mc L 2024 12:43 AM [facility] Blood VENOUS BLOOD SPECIMEN / Unknown Venipuncture / Unknown 2024 12:22 AM EST 2024 12:35 AM EST Kerrington D Balbuena MD HEMATOLOGY ORDERAB LES Performing Organization Address [facility]/ZIP Co de Phone Number [facility] [place] [address] * (ABNORMAL) Amylase (2024 12:22 AM EST) Amylase 9(L) 28 - 100 unit/L 2024 1:09 AM EST [facility] Blood VENOUS BLOOD SPECIMEN / Unknown Venipuncture / Unknown 2024 12:22 AM EST 2024 12:35 AM EST Tor Balbuena MD CHEMISTRY ORDERABL ES Performing Organization Address [facility] Co de Phone Number [facility] [place] [address] * POC, GLUCOSE (01/25/2024 8:19 PM EST) Glucometer, POC 168 65 - 199 mg/dL 01/25/2024 8:19 PM EST [facility] Comment:Supplemental ranges: <140 mg/dL before meals <180 mg/dL all other times of the day. Blood CAPILLARY BLOOD / Unknown 01/25/2024 8:19 PM EST 01/25/2024 8:19 PM EST Tor Balbuena MD POINT OF CARE TEST ORDERABLES Performing Organization Address City/[facility] Co de Phone Number [facility] [place] [address] * POC, GLUCOSE (01/25/2024 4:13 PM EST) Glucometer, POC 150 65 - 199 mg/dL 01/25/2024 4:13 PM EST [facility] Comment:Supplemental ranges: <140 mg/dL before meals <180 mg/dL all other times of the day. Blood CAPILLARY BLOOD / Unknown 01/25/2024 4:13 PM EST 01/25/2024 4:13 PM EST Tor Balbuena MD POINT OF CARE TEST ORDERABLES Performing Organization Address City/[facility]/ZIP Co de Phone Number [facility] [place] [address] * Amylase Level Body Fluid (01/25/2024 2:15 PM EST) Amylase, Fluid 7 unit/L 01/25/2024 4:10 PM EST [facility] Comment:Reference intervals are unavailable for this test in body fluids. Comparison of this result with the concentration in blood serum or plasma is recommended. This test has not been cleared by the [place] FDA. Performance characteristics of this test for the analysis of body fluids were determined by [facility] in accordance with CLIA requirements. This laboratory is qualified under CLIA to perform high-complexity testing. Body Fluid Source HEATHER drain 4:10 PM EST [facility] HEATHER Drain 01/25/2024 2:15 PM EST 01/25/2024 2:19 PM EST Tor Balbuena MD BODY FLUIDS AND ST OOLS ORDERABLES Performing Organization Address [facility] Co de Phone Number [facility] [place] [address] * POC, GLUCOSE (01/25/2024 11:42 AM EST) Glucometer, POC 199 65 - 199 mg/dL 01/25/2024 11:43 AM EST [facility] Comment:Supplemental ranges: <140 mg/dL before meals <180 mg/dL all other times of the day. Blood CAPILLARY BLOOD / Unknown 01/25/2024 11:42 AM EST 01/25/2024 11:43 AM EST Tor Balbuena MD POINT OF CARE TEST ORDERABLES Performing Organization Address City/[facility]/ZIP Co de Phone Number [facility] [place] [address] * POC, GLUCOSE (01/25/2024 8:20 AM EST) [facility] Glucometer, POC 188 65 - 199 mg/dL 01/25/2024 8:20 AM EST [facility] Comment:Supplemental ranges: <140 mg/dL before meals <180 mg/dL all other times of the day. Blood CAPILLARY BLOOD / Unknown 01/25/2024 8:20 AM EST 01/25/2024 8:20 AM EST Tor Balbuena MD POINT OF CARE TEST ORDERABLES [facility] [place] [address] * Gold Tube HOLD (01/25/2024 6:52 AM EST) [facility] Gold Hold Hold for Add-on 01/25/2024 9:01 AM EST [facility] Blood VENOUS BLOOD SPECIMEN / Unknown Venipuncture / Unknown 01/25/2024 6:52 AM EST 01/25/2024 7:05 AM EST Tor Balbuena MD CHEMISTRY ORDERABL ES Performing Organization Address City/[facility]/ZIP Co de Phone Number [facility] [place] [address] * Potassium (01/25/2024 6:52 AM EST) [facility] Potassium 3.8 3.5 - 5.0 mMol/L 01/25/2024 7:47 AM EST [facility] Blood VENOUS BLOOD SPECIMEN / Unknown Venipuncture / Unknown 01/25/2024 6:52 AM EST 01/25/2024 7:02 AM EST Tor Balbuena MD CHEMISTRY ORDERABL ES Performing Organization Address City/[facility]/ZIP Co de Phone Number [facility] [place] [address] * (ABNORMAL) Alanine Aminotransferase (01/25/2024 6:52 AM EST) [facility] Alanine Aminotransferase 108(H) 0 - 55 unit/L 01/25/2024 7:47 AM EST [facility] Blood VENOUS BLOOD SPECIMEN / Unknown Venipuncture / Unknown 01/25/2024 6:52 AM EST 01/25/2024 7:02 AM EST Tor Balbuena MD CHEMISTRY ORDERABL ES Performing Organization Address City/[facility]/ZIP Co de Phone Number [facility] [place] [address] * (ABNORMAL) Aspartate Aminotransferase (01/25/2024 6:52 AM EST) Aspartate Aminotransferase 63(H) <=39 unit/L 01/25/2024 7:47 AM EST [facility] Blood VENOUS BLOOD SPECIMEN / Unknown Venipuncture / Unknown 01/25/2024 6:52 AM EST 01/25/2024 7:02 AM EST Tor Balbuena MD CHEMISTRY ORDERABL ES Performing Organization Address [facility]/ZIP Co de Phone Number [facility] [place] [address] * POC, GLUCOSE (01/25/2024 3:18 AM EST) Glucometer, POC 179 65 - 199 mg/dL 01/25/2024 3:18 AM EST [facility] Comment:Supplemental ranges: <140 mg/dL before meals <180 mg/dL all other times of the day. Blood CAPILLARY BLOOD / Unknown 01/25/2024 3:18 AM EST 01/25/2024 3:18 AM EST Tor Balbuena MD POINT OF CARE TEST ORDERABLES Performing Organization Address City/[facility]/ZIP Co de Phone Number [facility] [place] [address] * Magnesium (01/25/2024 12:28 AM EST) Magnesium 0.83 0.69 - 1.07 mMol/L 01/25/2024 1:07 AM EST [facility] Blood VENOUS BLOOD SPECIMEN / Unknown Venipuncture / Unknown 01/25/2024 12:28 AM EST 01/25/2024 12:39 AM EST Tor Balbuena MD CHEMISTRY ORDERABL ES Performing Organization Address [facility]/ZIP Co de Phone Number [facility] [place] [address] * (ABNORMAL) Phosphorus (01/25/2024 12:28 AM EST) Phosphorus 2.4(L) 2.5 - 4.5 mg/dL 01/25/2024 1:07 AM [facility] Blood VENOUS BLOOD SPECIMEN / Unknown Venipuncture / Unknown 01/25/2024 12:28 AM EST 01/25/2024 12:39 AM EST Tor Balbuena MD CHEMISTRY ORDERABL ES [facility] [place] [address] * (ABNORMAL) Comprehensive metabolic panel (01/25/2024 12:28 AM EST) Glucose 203(H) 65 - 199 mg/dL 01/25/2024 5:42 AM [facility] Comment:Glucose Concentratio n >=200 mg/dL plus symptoms is consistent with Diabetes Mellitus. Blood Urea Nitrogen 14 10 - 20 mg/dL 01/25/2024 5:42 AM [facility] Creatinine 0.54(L) 0.80 - 1.50 mg/dL 01/25/2024 5:42 AM [facility] Sodium 135 135 - 145 mMol/L 01/25/2024 5:42 AM [facility] Potassium 01/25/2024 5:42 AM [facility] Comment:Unable to report due to hemolysis. Chloride 105 98 - 107 mMol/L 01/25/2024 5:42 AM [facility] Carbon Dioxide 25 22 - 31 mMol/L 01/25/2024 5:42 AM [facility] Anion Gap 5 5 - 15 mMol/L 01/25/2024 5:42 AM [facility] Calcium 7.5(L) 8.5 - 10.5 mg/dL 01/25/2024 5:42 AM [facility] Protein, Total 5.0(L) 6.1 - 8.0 g/dL 01/25/2024 5:42 AM [facility] Albumin 2.7(L) 3.2 - 5.2 g/dL 01/25/2024 5:42 AM [facility] Aspartate Aminotransferase 01/25/2024 5:42 AM [facility] Comment:Unable to report due to hemolysis. Alanine Aminotransferase 01/25/2024 5:42 AM [facility] Comment:Unable to report due to hemolysis. Alkaline Phosphatase 131(H) 40 - 130 unit/L 01/25/2024 5:42 AM [facility] Bilirubin, Total 1.1 <=1.3 mg/dL 01/25/2024 5:42 AM [facility] Est Glomerular Filtration Rate - Male 104 mL/min/1. 73 m?? 01/25/2024 5:42 AM [facility] Comment: This patient's estimated GFR [...] EST Tor Balbuena MD CHEMISTRY ORDERABL ES [facility] [place] [address] * (ABNORMAL) CBC (with Diff) (01/25/2024 12:28 AM EST) White Blood Cell 5.72 4.00 - 9.50 x10(3)/mc L 01/25/2024 12:44 AM [facility] Red Blood Cell 3.04(L) 4.58 - 5.54 x10(6)/mc L 01/25/2024 12:44 AM [facility] Hemoglobin 9.5(L) 13.7 - 16.5 g/dL 01/25/2024 12:44 AM [facility] Hematocrit 28.4(L) 40.5 - 48.5 % 01/25/2024 12:44 AM [facility] Mean Cell Volume 93.4(H) 82.9 - 93.1 fL 01/25/2024 12:44 AM [facility] Mean Cell Hemoglobin 31.3 27.5 - 32.1 pg 01/25/2024 12:44 AM [facility] Mean Cell Hemoglobin Concentration 33.5 32.0 - 35.7 g/dL 01/25/2024 12:44 AM [facility] Platelet 101(L) 145 - 357 x10(3)/mc L 01/25/2024 12:44 AM [facility] Mean Platelet Volume 9.7 7.6 - 12.9 fL 01/25/2024 12:44 AM [facility] RDW Standard Deviation 54.1(H) 36.0 - 45.0 fL 01/25/2024 12:44 AM [facility] RDW coefficient of variation 16.0(H) 11.4 - 13.8 % 01/25/2024 12:44 AM [facility] NRBC% auto 0.0 % 01/25/2024 12:44 AM [facility] NRBC Absolute <0.01 <0.01 x10(3)/mc L 01/25/2024 12:44 AM [facility] Neutrophil % 79.9 % 01/25/2024 12:44 AM [facility] Neutrophil Absolute (ANC) - Automated 4.57 1.70 - 6.10 x10(3)/mc L 01/25/2024 12:44 AM [facility] Lymph % 7.9 % 01/25/2024 12:44 AM [facility] Lymph Absolute 0.45(L) 0.90 - 3.20 x10(3)/mc L 01/25/2024 12:44 AM [facility] Monocyte % 9.8 % 01/25/2024 12:44 AM [facility] Monocyte Absolute 0.56 0.30 - 0.90 x10(3)/mc L 01/25/2024 12:44 AM [facility] Eos % 1.9 % 01/25/2024 12:44 AM [facility] Eos Absolute 0.11 0.00 - 0.40 x10(3)/mc L 01/25/2024 12:44 AM [facility] Basophil % 0.2 % 01/25/2024 12:44 AM [facility] Baso Absolute <0.04 0.00 - 0.10 x10(3)/mc L 01/25/2024 12:44 AM [facility] Immature Gran % 0.3 % 12:44 AM [facility] Immature Gran Absolute <0.04 0.00 - 0.04 x10(3)/mc L 01/25/2024 12:44 AM [facility] Blood VENOUS BLOOD SPECIMEN / Unknown Venipuncture / Unknown 01/25/2024 12:28 AM EST 01/25/2024 12:39 AM EST Tor Balbuena MD HEMATOLOGY ORDERAB LES Performing Organization Address [facility] Co de Phone Number [facility] [place] [address] * (ABNORMAL) Amylase (01/25/2024 12:28 AM EST) Amylase 8(L) 28 - 100 unit/L 01/25/2024 1:07 AM EST [facility] Blood VENOUS BLOOD SPECIMEN / Unknown Venipuncture / Unknown 01/25/2024 12:28 AM EST 01/25/2024 12:39 AM EST Tor Balbuena MD CHEMISTRY ORDERABL ES Performing Organization Address [facility] Number [facility] [place] [address] * POC, GLUCOSE (01/25/2024 12:05 AM EST) Pathologist [facility] Glucometer, POC 189 65 - 199 mg/dL 01/25/2024 12:05 AM EST [facility] Comment:Supplemental ranges: <140 mg/dL before meals <180 mg/dL all other times of the day. Blood CAPILLARY BLOOD / Unknown 01/25/2024 12:05 AM EST 01/25/2024 12:05 AM EST Tor Balbuena MD POINT OF CARE TEST ORDERABLES Performing Organization Address [facility] Co de Phone Number [facility] [place] [address] * EKG 12 Lead (01/24/2024 9:38 PM EST) Ventricular rate 82 BPM MUSE SYSTEM Atrial Rate 82 BPM MUSE SYSTEM P-R Interval 156 ms MUSE SYSTEM QRS Duration 104 ms MUSE SYSTEM Q-T Interval 388 ms MUSE SYSTEM QTC Calculated (Bezet) 453 ms MUSE SYSTEM Calculated P Hodge 41 degrees MUSE SYSTEM Calculated R Hodge -29 degrees MUSE SYSTEM Calculated T Hodge 28 degrees MUSE SYSTEM INTERPRETATION Normal sinus rhythm Normal ECG When compared with ECG of 18-JUL-2021 20:14, No significant change was found Confirmed by Chinmay Perkins MD ([id number]) on 2024 10:35:50 AM MUSE SYSTEM 01/24/2024 9:38 PM EST 2024 10:35 AM EST Tor Balbuena MD ECG ORDERABLES MUSE SYSTEM * POC, GLUCOSE (01/24/2024 7:33 PM EST) Glucometer, POC 156 65 - 199 mg/dL 01/24/2024 7:33 PM EST [facility] Comment:Supplemental ranges: <140 mg/dL before meals <180 mg/dL all other times of the day. Blood CAPILLARY BLOOD / Unknown 01/24/2024 7:33 PM EST 01/24/2024 7:34 PM EST Tor Balbuena MD POINT OF CARE TEST ORDERABLES Performing Organization Address [facility] Co de Phone Number [facility] [place] [address] * POC, GLUCOSE (01/24/2024 3:49 PM EST) Glucometer, POC 110 65 - 199 mg/dL 01/24/2024 3:49 PM EST [facility] Comment:Supplemental ranges: <140 mg/dL before meals <180 mg/dL all other times of the day. Blood CAPILLARY BLOOD / Unknown 01/24/2024 3:49 PM EST 01/24/2024 3:49 PM EST Tor Balbuena MD POINT OF CARE TEST ORDERABLES Performing Organization Address City/[facility] Co de Phone Number [facility] [place] [address] * Amylase Level Body Fluid (01/24/2024 1:48 PM EST) Amylase, Fluid 12 unit/L 01/24/2024 2:44 PM EST [facility] Comment:Reference intervals are unavailable for this test in body fluids. Comparison of this result with the concentration in blood serum or plasma is recommended. This test has not been cleared by the [place] FDA. Performance characteristics of this test for the analysis of body fluids were determined by [facility] in accordance with CLIA requirements. This laboratory is qualified under CLIA to perform high-complexity testing. Body Fluid Source HEATHER Fluid 2:44 PM EST [facility] HEATHER Drain 01/24/2024 1:48 PM EST 01/24/2024 1:54 PM EST Tor Balbuena MD BODY FLUIDS AND ST OOLS ORDERABLES Performing Organization Address City/[facility]/ZIP Co de Phone Number [facility] [place] [address] * POC, GLUCOSE (01/24/2024 12:08 PM EST) Glucometer, POC 77 65 - 199 mg/dL 01/24/2024 12:08 PM EST [facility] Comment:Supplemental ranges: <140 mg/dL before meals <180 mg/dL all other times of the day. Blood CAPILLARY BLOOD / Unknown 01/24/2024 12:08 PM EST 01/24/2024 12:09 PM EST Tor Balbuena MD POINT OF CARE TEST ORDERABLES [facility] [place] [address] * POC, GLUCOSE (01/24/2024 9:07 AM EST) Glucometer, POC 69 65 - 199 mg/dL 01/24/2024 9:07 AM EST [facility] Comment:Supplemental ranges: <140 mg/dL before meals <180 mg/dL all other times of the day. Blood CAPILLARY BLOOD / Unknown 01/24/2024 9:07 AM EST 01/24/2024 9:07 AM EST Tor Balbuena MD POINT OF CARE TEST ORDERABLES Performing Organization Address [facility] Co de Phone Number [facility] [place] [address] * POC, GLUCOSE (01/24/2024 8:36 AM EST) Glucometer, POC 68 65 - 199 mg/dL 01/24/2024 8:36 AM EST [facility] Comment:Supplemental ranges: <140 mg/dL before meals <180 mg/dL all other times of the day. Blood CAPILLARY BLOOD / Unknown 01/24/2024 8:36 AM EST 01/24/2024 8:36 AM EST Tor Balbuena MD POINT OF CARE TEST ORDERABLES Performing Organization Address [facility] Co de Phone Number [facility] [place] [address] * (ABNORMAL) POC, GLUCOSE (01/24/2024 8:07 AM EST) Glucometer, POC 57(L) 65 - 199 mg/dL 01/24/2024 8:07 AM EST [facility] Comment:Supplemental ranges: <140 mg/dL before meals <180 mg/dL all other times of the day. Blood CAPILLARY BLOOD / Unknown 01/24/2024 8:07 AM EST 01/24/2024 8:07 AM EST Tor Balbuena MD POINT OF CARE TEST ORDERABLES Performing Organization Address City/[facility]/ZIP Co de Phone Number [facility] [place] [address] * POC, GLUCOSE (01/24/2024 6:08 AM EST) Glucometer, POC 74 65 - 199 mg/dL 01/24/2024 6:08 AM EST [facility] Comment:Supplemental ranges: <140 mg/dL before meals <180 mg/dL all other times of the day. Blood CAPILLARY BLOOD / Unknown 01/24/2024 6:08 AM EST 01/24/2024 6:08 AM EST Tor Balbuena MD POINT OF CARE TEST ORDERABLES Performing Organization Address City/[facility]/ZIP Co de Phone Number [facility] [place] [address] * Prepare RBC (01/24/2024 4:07 AM EST) Status Information Transfused [facility] Product Identification RBC [facility] Unit Number [id number] [facility] Product Code [id number] [facility] Unit Blood Type OPOS [facility] Specimen Expiration Date [facility] Volulme 287 [facility] Issue Date / Time [facility] Status [facility] Returned [facility] Product Identification RBC [facility] Unit [facility] [id number] [facility] Product Code [id number] [facility] Unit Blood Type OPOS [facility] Specimen Expiration Date [id number] [facility] Volulme 350 [facility] Issue Date / Time [facility] Blood 01/23/2024 3:2 5 PM EST Shaheen Cody MD BLOOD BANK PRODUCT O RDERABLES Performing Organization Address City/[facility] Co de Phone Number [facility] [place] [address] * POC, GLUCOSE (01/24/2024 4:01 AM EST) Glucometer, POC 73 65 - 199 mg/dL 01/24/2024 4:02 AM EST [facility] Comment:Supplemental ranges: <140 mg/dL before meals <180 mg/dL all other times of the day. Blood CAPILLARY BLOOD / Unknown 01/24/2024 4:01 AM EST 01/24/2024 4:02 AM EST Tor Balbuena MD POINT OF CARE TEST ORDERABLES Performing Organization Address City/[facility]/ZIP Co de Phone Number [facility] [place] [address] * Prepare RBC (01/24/2024 2:07 AM EST) Status Information Transfused [facility] Product Identification RBC [facility] Unit Number [id number] [facility] Product Code [id number] [facility] Unit Blood Type OPOS [facility] Specimen Expiration Date [facility] Volulme 350 [facility] Issue [facility] / Time [facility] Status Information Transfused [facility] Product Identification RBC [facility] Unit [facility] [id number] [facility] Product Code [id number] [facility] Unit Blood Type OPOS [facility] Specimen Expiration Date [facility] Volulme 350 [facility] Issue Date / Time [facility] Blood 01/23/2024 1:0 9 PM EST Shaheen Cody MD BLOOD BANK PRODUCT O RDERABLES Performing Organization Address [facility] Co de Phone Number [facility] [place] [address] * POC, GLUCOSE (01/24/2024 1:40 AM EST) Glucometer, POC 82 65 - 199 mg/dL 01/24/2024 1:40 AM EST [facility] Comment:Supplemental ranges: <140 mg/dL before meals <180 mg/dL all other times of the day. Blood CAPILLARY BLOOD / Unknown 01/24/2024 1:40 AM EST 01/24/2024 1:40 AM EST Tor Balbuena MD POINT OF CARE TEST ORDERABLES Performing Organization Address City/[facility]/ZIP Co de Phone Number [facility] [place] [address] * POC, GLUCOSE (01/24/2024 12:10 AM EST) Glucometer, POC 82 65 - 199 mg/dL 01/24/2024 12:10 AM EST [facility] Comment:Supplemental ranges: <140 mg/dL before meals <180 mg/dL all other times of the day. Blood CAPILLARY BLOOD / Unknown 01/24/2024 12:10 AM EST 01/24/2024 12:11 AM EST Tor Balbuena MD POINT OF CARE TEST ORDERABLES Performing Organization Address City/[facility]/ZIP Co de Phone Number [facility] [place] [address] * Magnesium (01/24/2024 12:01 AM EST) Magnesium 0.76 0.69 - 1.07 mMol/L 01/24/2024 12:53 AM EST [facility] Blood VENOUS BLOOD SPECIMEN / Unknown Arterial / Unknown 01/24/2024 12:01 AM EST 01/24/2024 12:23 AM EST Tor Balbuena MD CHEMISTRY ORDERABL ES Performing Organization Address City/[facility]/ZIP Co de Phone Number [facility] [place] [address] * Phosphorus (01/24/2024 12:01 AM EST) Phosphorus 4.3 2.5 - 4.5 mg/dL 01/24/2024 12:53 AM EST [facility] Blood VENOUS BLOOD SPECIMEN / Unknown Arterial / Unknown 01/24/2024 12:01 AM EST 01/24/2024 12:23 AM EST Tor Balbuena MD CHEMISTRY ORDERABL ES Performing Organization Address City/[facility]/ZIP Co de Phone Number [facility] [place] [address] * (ABNORMAL) Comprehensive metabolic panel (01/24/2024 12:01 AM EST) Glucose 86 65 - 199 mg/dL 01/24/2024 12:53 AM [facility] Comment:Glucose Concentratio n >=200 mg/dL plus symptoms is consistent with Diabetes Mellitus. Blood Urea Nitrogen 17 10 - 20 mg/dL 01/24/2024 12:53 AM [facility] Creatinine 0.71(L) 0.80 - 1.50 mg/dL 01/24/2024 12:53 AM [facility] Sodium 139 135 - 145 mMol/L 01/24/2024 12:53 AM [facility] Potassium 4.2 3.5 - 5.0 mMol/L 01/24/2024 12:53 AM [facility] Chloride 107 98 - 107 mMol/L 01/24/2024 12:53 AM [facility] Carbon Dioxide 23 22 - 31 mMol/L 01/24/2024 12:53 AM [facility] Anion Gap 9 5 - 15 mMol/L 01/24/2024 12:53 AM [facility] Calcium 7.5(L) 8.5 - 10.5 mg/dL 01/24/2024 12:53 AM [facility] Protein, Total 4.5(L) 6.1 - 8.0 g/dL 01/24/2024 12:53 AM [facility] Albumin 2.8(L) 3.2 - 5.2 g/dL 01/24/2024 12:53 AM [facility] Aspartate Aminotransferase 147(H) <=39 unit/L 01/24/2024 12:53 AM [facility] Alanine Aminotransferase 157(H) 0 - 55 unit/L 01/24/2024 12:53 AM [facility] Alkaline Phosphatase 159(H) 40 - 130 unit/L 01/24/2024 12:53 AM [facility] Bilirubin, Total 1.5(H) <=1.3 mg/dL 01/24/2024 12:53 AM EST [facility] Est Glomerular Filtration Rate - Male 96 mL/min/1. 73 m?? 01/24/2024 12:53 AM EST [facility] Comment: This patient's estimated [...] EST Tor Balbuena MD CHEMISTRY ORDERABL ES [facility] [place] [id number] * (ABNORMAL) CBC (with Diff) (01/24/2024 12:01 AM EST) White Blood Cell 7.86 4.00 - 9.50 x10(3)/mc L 01/24/2024 12:31 AM [facility] Red Blood Cell 3.42(L) 4.58 - 5.54 x10(6)/mc L 01/24/2024 12:31 AM EST [facility] Hemoglobin 10.5(L) 13.7 - 16.5 g/dL 01/24/2024 12:31 AM [facility] Hematocrit 30.9(L) 40.5 - 48.5 % 01/24/2024 12:31 AM [facility] Mean Cell Volume 90.4 82.9 - 93.1 fL 01/24/2024 12:31 AM [facility] Mean Cell Hemoglobin 30.7 27.5 - 32.1 pg 01/24/2024 12:31 AM [facility] Mean Cell Hemoglobin Concentration 34.0 32.0 - 35.7 g/dL 01/24/2024 12:31 AM [facility] Platelet 147 145 - 357 x10(3)/mc L 01/24/2024 12:31 AM [facility] Mean Platelet Volume 9.7 7.6 - 12.9 fL 01/24/2024 12:31 AM [facility] RDW Standard Deviation 51.5(H) 36.0 - 45.0 fL 01/24/2024 12:31 AM [facility] RDW coefficient of variation 15.9(H) 11.4 - 13.8 % 01/24/2024 12:31 AM [facility] NRBC% auto 0.0 % 01/24/2024 12:31 AM [facility] NRBC Absolute <0.01 <0.01 x10(3)/mc L 01/24/2024 12:31 AM [facility] Neutrophil % 79.1 % 01/24/2024 12:31 AM [facility] Neutrophil Absolute (ANC) - Automated 6.22(H) 1.70 - 6.10 x10(3)/mc L 01/24/2024 12:31 AM [facility] Lymph % 10.8 % 01/24/2024 12:31 AM [facility] Lymph Absolute 0.85(L) 0.90 - 3.20 x10(3)/mc L 01/24/2024 12:31 AM [facility] Monocyte % 8.3 % 01/24/2024 12:31 AM [facility] Monocyte Absolute 0.65 0.30 - 0.90 x10(3)/mc L 01/24/2024 12:31 AM [facility] Eos % 0.8 % 01/24/2024 12:31 AM [facility] Eos Absolute 0.06 0.00 - 0.40 x10(3)/mc L 01/24/2024 12:31 AM EST [facility] Basophil % 0.4 % 01/24/2024 12:31 AM EST [facility] Baso Absolute <0.04 0.00 - 0.10 x10(3)/mc L 01/24/2024 12:31 AM EST [facility] Immature Gran % 0.6 % 12:31 AM EST [facility] Immature Gran Absolute 0.05(H) 0.00 - 0.04 x10(3)/mc L 01/24/2024 12:31 AM EST [facility] Blood VENOUS BLOOD SPECIMEN / Unknown Arterial / Unknown 01/24/2024 12:01 AM EST 01/24/2024 12:23 AM EST Tor Balbuena MD HEMATOLOGY ORDERAB LES [facility] [place] [address] * (ABNORMAL) Amylase (01/24/2024 12:01 AM EST) Pathologist [facility] Amylase 16(L) 28 - 100 unit/L 01/24/2024 12:53 AM EST [facility] Blood VENOUS BLOOD SPECIMEN / Unknown Arterial / Unknown 01/24/2024 12:01 AM EST 01/24/2024 12:23 AM EST Tor Balbuena MD CHEMISTRY ORDERABL ES [facility] [place] [address] * (ABNORMAL) Blood Gas, Arterial POC (01/23/2024 6:59 PM EST) pH, Arterial 7.37 7.35 - 7.45 01/24/2024 6:32 AM EST [facility] PCO2, Arterial 39 35 - 45 mmHg 01/24/2024 6:32 AM [facility] PO2, Arterial 133(H) 85 - 104 mmHg 01/24/2024 6:32 AM [facility] Bicarbonate, Arterial 21.7 20.0 - 26.0 mmol/L 01/24/2024 6:32 AM [facility] Base Excess, Arterial -3.6(L) -3.0 - 3.0 mmol/L 01/24/2024 6:32 AM [facility] Hemoglobin, Arterial 10.4(L) 13.7 - 16.5 g/dL 01/24/2024 6:32 AM [facility] Oxyhemoglobin, Arterial 96.0 94.0 - 97.0 % 01/24/2024 6:32 AM [facility] Carboxyhemoglobin , Arterial 0.3 % 01/24/2024 6:32 AM [facility] Comment: Nonsmokers: 0.5-1.5% COHB ?? Smokers: Variable ??but usually less than 10% ?? Toxic: 20-30% COHB ?? Lethal: Greater than 60% COHB Methemoglobin, Arterial 0.3 <=1.5 % 01/24/2024 6:32 AM [facility] Sodium, Arterial 135 135 - 145 mmol/L 01/24/2024 6:32 AM [facility] Potassium, Arterial 3.8 3.5 - 5.0 mmol/L 01/24/2024 6:32 AM [facility] Chloride, Arterial 105 98 - 107 mmol/L 01/24/2024 6:32 AM [facility] Lactate, Arterial 1.3 0.5 - 2.2 mmol/L 01/24/2024 6:32 AM [facility] IONIZED CALCIUM, ARTERIAL 1.08(L) 1.15 - 1.33 mmol/L 01/24/2024 6:32 AM [facility] Glucose, Arterial 116 65 - 199 mg/dL 01/24/2024 6:32 AM [facility] Comment:Glucose Concentratio n >=200 mg/dL plus symptoms is consistent with Diabetes Mellitus. Blood ARTERIAL BLOOD / Unknown 01/23/2024 6:59 PM EST 01/24/2024 6:32 AM EST Tor Balbuena MD POINT OF CARE TEST ORDERABLES Performing Organization Address [facility] Co de Phone Number [facility] [place] [address] * POC, GLUCOSE (01/23/2024 6:56 PM EST) Glucometer, POC 131 65 - 199 mg/dL 01/23/2024 6:56 PM EST [facility] Comment:Supplemental ranges: <140 mg/dL before meals <180 mg/dL all other times of the day. Blood CAPILLARY BLOOD / Unknown 01/23/2024 6:56 PM EST 01/23/2024 6:56 PM EST Tor Balbuena MD POINT OF CARE TEST ORDERABLES Performing Organization Address [facility] Co de Phone Number [facility] [place] [address] * Fibrinogen (01/23/2024 5:06 PM EST) Fibrinogen 242 200 - 393 mg/dL 01/23/2024 5:53 PM EST [facility] Comment: A fibrinogen level >100 mg/dL is adequate for hemostasis in most patients without underlying bleeding disorders. Blood VENOUS BLOOD SPECIMEN / Unknown Venipuncture / Unknown 01/23/2024 5:06 PM EST 01/23/2024 5:19 PM EST Tor Balbuena MD HEMATOLOGY ORDERAB LES Performing Organization Address City/[facility] Co de Phone Number [facility] [place] [address] * APTT (01/23/2024 5:06 PM EST) Partial Thromboplastin Time 26 25 - 37 sec 01/23/2024 5:53 PM EST [facility] Comment: The PTT is NOT appropriate for heparin monitoring. Use the Anti-Xa level for heparin monitoring (HEP UFH) or LMWH monitoring (HEP LMW). A PTT less than 37 seconds generally indicates adequate hemostasis. Blood VENOUS BLOOD SPECIMEN / Unknown Venipuncture / Unknown 01/23/2024 5:06 PM EST 01/23/2024 5:19 PM EST Tor Balbuena MD HEMATOLOGY ORDERAB LES [facility] [place] [address] * (ABNORMAL) Prothrombin Time (01/23/2024 5:06 PM EST) Prothrombin Time 12.7(H) 9.4 - 12.5 sec 01/23/2024 5:53 PM EST [facility] International Normalization Ratio 1.1 <=4.9 01/23/2024 5:53 PM EST [facility] Comment: An INR < [...] EST Tor Balbuena MD HEMATOLOGY ORDERAB LES [facility] [place] [address] * Phosphorus (01/23/2024 5:06 PM EST) Phosphorus 3.9 2.5 - 4.5 mg/dL 01/23/2024 5:59 PM EST [facility] Blood VENOUS BLOOD SPECIMEN / Unknown Venipuncture / Unknown 01/23/2024 5:06 PM EST 01/23/2024 5:19 PM EST Tor Balbuena MD CHEMISTRY ORDERABL ES [facility] [place] [address] * Magnesium (01/23/2024 5:06 PM EST) Magnesium 0.80 0.69 - 1.07 mMol/L 01/23/2024 5:59 PM EST [facility] Blood VENOUS BLOOD SPECIMEN / Unknown Venipuncture / Unknown 01/23/2024 5:06 PM EST 01/23/2024 5:19 PM EST Tor Balbuena MD CHEMISTRY ORDERABL ES Performing Organization Address City/[facility]/ZIP Co de Phone Number [facility] [place] [address] * (ABNORMAL) Comprehensive metabolic panel (01/23/2024 5:06 PM EST) Glucose 158 65 - 199 mg/dL 01/23/2024 5:59 PM EST [facility] Comment:Glucose Concentratio n >=200 mg/dL plus symptoms is consistent with Diabetes Mellitus. Blood Urea Nitrogen 16 10 - 20 mg/dL 01/23/2024 5:59 PM EST [facility] Creatinine 0.62(L) 0.80 - 1.50 mg/dL 01/23/2024 5:59 PM EST [facility] Sodium 139 135 - 145 mMol/L 01/23/2024 5:59 PM EST [facility] Potassium 4.4 3.5 - 5.0 mMol/L 01/23/2024 5:59 PM [facility] Chloride 105 98 - 107 mMol/L 01/23/2024 5:59 PM [facility] Carbon Dioxide 22 22 - 31 mMol/L 01/23/2024 5:59 PM [facility] Anion Gap 12 5 - 15 mMol/L 01/23/2024 5:59 PM EST [facility] Calcium 7.9(L) 8.5 - 10.5 mg/dL 01/23/2024 5:59 PM EST [facility] Protein, Total 4.5(L) 6.1 - 8.0 g/dL 01/23/2024 5:59 PM [facility] Albumin 3.0(L) 3.2 - 5.2 g/dL 01/23/2024 5:59 PM [facility] Aspartate Aminotransferase 232(H) <=39 unit/L 01/23/2024 5:59 PM [facility] Alanine Aminotransferase 167(H) 0 - 55 unit/L 01/23/2024 5:59 PM [facility] Alkaline Phosphatase 188(H) 40 - 130 unit/L 01/23/2024 5:59 PM [facility] Bilirubin, Total 1.5(H) <=1.3 mg/dL 01/23/2024 5:59 PM EST [facility] Est Glomerular Filtration Rate - Male 100 mL/min/1. 73 m?? 01/23/2024 5:59 PM [facility] Comment: This patient's estimated GFR [...] EST Tor Balbuena MD CHEMISTRY ORDERABL ES [facility] [place] [address] * (ABNORMAL) CBC (with Diff) (01/23/2024 5:06 PM EST) [facility] White Blood Cell 5.19 4.00 - 9.50 x10(3)/mc L 01/23/2024 5:36 PM [facility] Red Blood Cell 3.50(L) 4.58 - 5.54 x10(6)/mc L 01/23/2024 5:36 PM [facility] Hemoglobin 10.8(L) 13.7 - 16.5 g/dL 01/23/2024 5:36 PM [facility] Hematocrit 31.9(L) 40.5 - 48.5 % 01/23/2024 5:36 PM [facility] Mean Cell Volume 91.1 82.9 - 93.1 fL 01/23/2024 5:36 PM [facility] Mean Cell Hemoglobin 30.9 27.5 - 32.1 pg 01/23/2024 5:36 PM [facility] Mean Cell Hemoglobin Concentration 33.9 32.0 - 35.7 g/dL 01/23/2024 5:36 PM [facility] Platelet 116(L) 145 - 357 x10(3)/mc L 01/23/2024 5:36 PM [facility] Mean Platelet Volume 9.9 7.6 - 12.9 fL 01/23/2024 5:36 PM [facility] RDW Standard Deviation 49.3(H) 36.0 - 45.0 fL 01/23/2024 5:36 PM [facility] RDW coefficient of variation 14.9(H) 11.4 - 13.8 % 01/23/2024 5:36 PM [facility] NRBC% auto 0.0 % 01/23/2024 5:36 PM [facility] NRBC Absolute <0.01 <0.01 x10(3)/mc L 01/23/2024 5:36 PM EST [facility] Neutrophil % 81.3 % 01/23/2024 5:36 PM [facility] Neutrophil Absolute (ANC) - Automated 4.22 1.70 - 6.10 x10(3)/mc L 01/23/2024 5:36 PM [facility] Lymph % 9.4 % 01/23/2024 5:36 PM [facility] Lymph Absolute 0.49(L) 0.90 - 3.20 x10(3)/mc L 01/23/2024 5:36 PM EST [facility] Monocyte % 8.5 % 01/23/2024 5:36 PM [facility] Monocyte Absolute 0.44 0.30 - 0.90 x10(3)/mc L 01/23/2024 5:36 PM [facility] Eos % 0.2 % 01/23/2024 5:36 PM [facility] Eos Absolute <0.04 0.00 - 0.40 x10(3)/mc L 01/23/2024 5:36 PM EST [facility] Basophil % 0.4 % 01/23/2024 5:36 PM [facility] Baso Absolute <0.04 0.00 - 0.10 x10(3)/mc L 01/23/2024 5:36 PM EST [facility] Immature Gran % 0.2 % 5:36 PM EST [facility] Immature Gran Absolute <0.04 0.00 - 0.04 x10(3)/mc L 01/23/2024 5:36 PM [facility] Blood VENOUS BLOOD SPECIMEN / Unknown Venipuncture / Unknown 01/23/2024 5:06 PM EST 01/23/2024 5:18 PM EST Tor Balbuena MD HEMATOLOGY ORDERAB LES [facility] [place] [id number] * (ABNORMAL) Hemoglobin A1c (01/23/2024 5:06 PM EST) Hemoglobin A1c 7.0(H) 4.3 - 5.6 % 01/23/2024 5:49 PM EST [facility] Comment: Per ADA guidelines, [...] red blood cell turnover may not be inside sales account representative of glycemic control. Reference Interval: 4.3 - 5.6% 5.7 - 6.4%: Consistent with prediabetes >=6.5%: Consistent with diagnosis of diabetes mellitus Estimated Average Glucose 01/23/2024 5:49 PM EST [facility] Comment:Estimated Average Gl ucose not appropriate for patients over 70 years of age. Blood VENOUS BLOOD SPECIMEN / Unknown Venipuncture / Unknown 01/23/2024 5:06 PM EST 01/23/2024 5:18 PM EST [facility] - 01/23/2024 5:49 PM EST Estimated average glucose (eAG) is calculated from the equation described in: César DM, Steven J, Soto R, et al. ??Translating the A1C assay into estimated average glucose values. ??Diabetes Care 2008:31(8):3093-7583. Additional resources are available on the ADA website (diabetes.org). Tor Balbuena MD CHEMISTRY ORDERABL ES [facility] [place] [address] * POC, GLUCOSE (01/23/2024 5:02 PM EST) Glucometer, POC 162 65 - 199 mg/dL 01/23/2024 5:03 PM EST [facility] Comment:Supplemental ranges: <140 mg/dL before meals <180 mg/dL all other times of the day. Blood CAPILLARY BLOOD / Unknown 01/23/2024 5:02 PM EST 01/23/2024 5:03 PM EST Tor Balbuena MD POINT OF CARE TEST ORDERABLES [facility] [place] [address] * (ABNORMAL) Blood Gas, Arterial POC (01/23/2024 3:20 PM EST) pH, Arterial 7.38 7.35 - 7.45 01/23/2024 3:21 PM [facility] PCO2, Arterial 41 35 - 45 mmHg 01/23/2024 3:21 PM [facility] PO2, Arterial 215(H) 85 - 104 mmHg 01/23/2024 3:21 PM [facility] Bicarbonate, Arterial 23.7 20.0 - 26.0 mmol/L 01/23/2024 3:21 PM [facility] Base Excess, Arterial -1.4 -3.0 - 3.0 mmol/L 01/23/2024 3:21 PM [facility] Hemoglobin, Arterial 9.2(L) 13.7 - 16.5 g/dL 01/23/2024 3:21 PM [facility] Oxyhemoglobin, Arterial 96.6 94.0 - 97.0 % 01/23/2024 3:21 PM [facility] Carboxyhemoglobin , Arterial 0.3 % 01/23/2024 3:21 PM [facility] Comment: Nonsmokers: 0.5-1.5% COHB ?? Smokers: Variable ??but usually less than 10% ?? Toxic: 20-30% COHB ?? Lethal: Greater than 60% COHB Methemoglobin, Arterial 0.3 <=1.5 % 01/23/2024 3:21 PM [facility] Sodium, Arterial 134(L) 135 - 145 mmol/L 01/23/2024 3:21 PM [facility] Potassium, Arterial 4.0 3.5 - 5.0 mmol/L 01/23/2024 3:21 PM [facility] Chloride, Arterial 105 98 - 107 mmol/L 01/23/2024 3:21 PM [facility] Lactate, Arterial 1.5 0.5 - 2.2 mmol/L 01/23/2024 3:21 PM [facility] IONIZED CALCIUM, ARTERIAL 1.13(L) 1.15 - 1.33 mmol/L 01/23/2024 3:21 PM [facility] Glucose, Arterial 164 65 - 199 mg/dL 01/23/2024 3:21 PM [facility] Comment:Glucose Concentratio n >=200 mg/dL plus symptoms is consistent with Diabetes Mellitus. Blood ARTERIAL BLOOD / Unknown 01/23/2024 3:20 PM EST 01/23/2024 3:21 PM EST Tor Balbuena MD POINT OF CARE TEST ORDERABLES [facility] [place] [address] * (ABNORMAL) Blood Gas, Arterial POC (01/23/2024 2:04 PM EST) pH, Arterial 7.33(L) 7.35 - 7.45 01/23/2024 2:05 PM [facility] PH Corrected, Arterial 7.33(L) 7.35 - 7.45 01/23/2024 2:05 PM [facility] PCO2, Arterial 39 35 - 45 mmHg 01/23/2024 2:05 PM [facility] PCO2 Corrected, Arterial 39 35 - 45 mmHg 01/23/2024 2:05 PM [facility] PO2, Arterial 195(H) 85 - 104 mmHg 01/23/2024 2:05 PM [facility] PO2 Corrected, Arterial 194.9(H) 85 - 104 mmHg 01/23/2024 2:05 PM [facility] Bicarbonate, Arterial 20.3 20.0 - 26.0 mmol/L 01/23/2024 2:05 PM [facility] Base Excess, Arterial -5.6(L) -3.0 - 3.0 mmol/L 01/23/2024 2:05 PM [facility] Hemoglobin, Arterial 9.9(L) 13.7 - 16.5 g/dL 01/23/2024 2:05 PM [facility] Oxyhemoglobin, Arterial 96.9 94.0 - 97.0 % 01/23/2024 2:05 PM [facility] Carboxyhemoglobin , Arterial 0.2 % 01/23/2024 2:05 PM [facility] Comment: Nonsmokers: 0.5-1.5% COHB ?? Smokers: Variable ??but usually less than 10% ?? Toxic: 20-30% COHB ?? Lethal: Greater than 60% COHB Methemoglobin, Arterial 0.3 <=1.5 % 01/23/2024 2:05 PM [facility] Sodium, Arterial 134(L) 135 - 145 mmol/L 01/23/2024 2:05 PM [facility] Potassium, Arterial 4.0 3.5 - 5.0 mmol/L 01/23/2024 2:05 PM [facility] Chloride, Arterial 106 98 - 107 mmol/L 01/23/2024 2:05 PM [facility] Lactate, Arterial 1.8 0.5 - 2.2 mmol/L 01/23/2024 2:05 PM [facility] Fraction of Inspired Oxygen 49 % 01/23/2024 2:05 PM [facility] Flow Rate 0.7 L/min 01/23/2024 2:05 PM [facility] PF Ratio 398 Ratio 01/23/2024 2:05 PM [facility] Comment:PF ratio calculated using the non-temperature corrected pO2 result. Patient Temperature 36.9 C 01/23/2024 2:05 PM EST [facility] IONIZED CALCIUM, ARTERIAL 1.10(L) 1.15 - 1.33 mmol/L 01/23/2024 2:05 PM [facility] Glucose, Arterial 196 65 - 199 mg/dL 01/23/2024 2:05 PM EST [facility] Comment:Glucose Concentratio n >=200 mg/dL plus symptoms is consistent with Diabetes Mellitus. Blood ARTERIAL BLOOD / Unknown 01/23/2024 2:04 PM EST 01/23/2024 2:05 PM EST Tor Balbuena MD POINT OF CARE TEST ORDERABLES Performing Organization Address City/State/[facility] Co de Phone Number [facility] [place] [address] * (ABNORMAL) Blood Gas, Arterial POC (01/23/2024 12:34 PM EST) pH, Arterial 7.39 7.35 - 7.45 01/23/2024 12:35 PM [facility] PH Corrected, Arterial 7.40 7.35 - 7.45 01/23/2024 12:35 PM [facility] PCO2, Arterial 41 35 - 45 mmHg 01/23/2024 12:35 PM [facility] PCO2 Corrected, Arterial 40 35 - 45 mmHg 01/23/2024 12:35 PM [facility] PO2, Arterial 221(H) 85 - 104 mmHg 01/23/2024 12:35 PM [facility] PO2 Corrected, Arterial 217.3(H) 85 - 104 mmHg 01/23/2024 12:35 PM [facility] Bicarbonate, Arterial 24.3 20.0 - 26.0 mmol/L 01/23/2024 12:35 PM [facility] Base Excess, Arterial -0.7 -3.0 - 3.0 mmol/L 01/23/2024 12:35 PM [facility] Hemoglobin, Arterial 11.0(L) 13.7 - 16.5 g/dL 01/23/2024 12:35 PM [facility] Oxyhemoglobin, Arterial 95.9 94.0 - 97.0 % 01/23/2024 12:35 PM [facility] Carboxyhemoglobin , Arterial 0.3 % 01/23/2024 12:35 PM [facility] Comment: Nonsmokers: 0.5-1.5% COHB ?? Smokers: Variable ??but usually less than 10% ?? Toxic: 20-30% COHB ?? Lethal: Greater than 60% COHB Methemoglobin, Arterial 0.3 <=1.5 % 01/23/2024 12:35 PM [facility] Sodium, Arterial 138 135 - 145 mmol/L 01/23/2024 12:35 PM [facility] Potassium, Arterial 3.4(L) 3.5 - 5.0 mmol/L 01/23/2024 12:35 PM [facility] Chloride, Arterial 104 98 - 107 mmol/L 01/23/2024 12:35 PM [facility] Lactate, Arterial 1.4 0.5 - 2.2 mmol/L 01/23/2024 12:35 PM [facility] Fraction of Inspired Oxygen 50 % 01/23/2024 12:35 PM [facility] Flow Rate 0.7 L/min 01/23/2024 12:35 PM [facility] PF Ratio 442 Ratio 01/23/2024 12:35 PM [facility] Comment:PF ratio calculated using the non-temperature corrected pO2 result. Patient Temperature 36.3 C 01/23/2024 12:35 PM [facility] IONIZED CALCIUM, ARTERIAL 1.16 1.15 - 1.33 mmol/L 01/23/2024 12:35 PM [facility] Glucose, Arterial 154 65 - 199 mg/dL 01/23/2024 12:35 PM [facility] Comment:Glucose Concentratio n >=200 mg/dL plus symptoms is consistent with Diabetes Mellitus. Blood ARTERIAL BLOOD / Unknown 01/23/2024 12:34 PM EST 01/23/2024 12:35 PM EST Tor Balbuena MD POINT OF CARE TEST ORDERABLES Performing Organization Address [facility] de Phone Number [facility] [place] [address] * POC, GLUCOSE (01/23/2024 11:47 AM EST) Glucometer, POC 156 65 - 199 mg/dL 01/23/2024 11:53 AM EST [facility] Comment:Supplemental ranges: <140 mg/dL before meals <180 mg/dL all other times of the day. Blood CAPILLARY BLOOD / Unknown 01/23/2024 11:47 AM EST 01/23/2024 11:53 AM EST Tor Balbuena MD POINT OF CARE TEST ORDERABLES Performing Organization Address [facility] de Phone Number [facility] [place] [address] * (ABNORMAL) Surgical Pathology (01/23/2024 11:16 AM EST) Case Report Surgical Pathology Report ? Case: [id number] ? Authorizing Provider: ??Tor Balbuena MD ?Collected: ? 01/23/2024 1116 ? Ordering Location: ? Main Operating Room [place] ?? Received: ?01/23/2024 1403 ? [facility] ? Pathologist: ? Li Lynne MD ? Specimens: ?? A) - Lymph Node, Gastric, common hepatic artery lymph node ? B) - Pancreas, head of pancreas, duodenum, bile duct, gallbladder, antrum ? 4 2:36 PM [facility] Final Diagnosis A. Lymph Node: Lymph node, negative for carcinoma (0/1). B. Pancreas, head of pancreas, duodenum, bile duct, gallbladder, antrum Excision: Residual invasive pancreatic ductal carcinoma, see Synoptic Report below. Gallbladder, negative for carcinoma. Omentum with fibrosis, negative for carcinoma. 4 2:36 PM [facility] Synoptic Report PANCREAS (EXOCRINE) PANCREAS [...] (PanIN) (highest grade): PanIN3 4 2:36 PM [facility] Discussion The case was reviewe d at the GI pathology consensus conference. 4 2:36 PM [facility] Additional Studies Task ID IHC/Special Stains Result B22-2 CKAE1/3 Reviewed for diagnosis B31-2 CKAE1/3 Reviewed for diagnosis B32-2 CKAE1/3 Reviewed for diagnosis 2:36 PM [facility] Disclaimer(s) Formalin-fixed, paraffin-embedded tissue sections [...] morphology, histopathological criteria and other diagnostic tests. 2:36 PM [facility] Clinical Information A. Lymph Node, common hepatic artery lymph node *Other - as specified in Clinical Information Pancreas cancer, common hepatic artery lymph node B. Pancreas, head of pancreas, duodenum, bile duct, gallbladder, antrum *Other - as specified in Clinical Information Pancreas cancer Yellow: pancreatic neck margin FROZEN [place]: SMA Green: bile duct margin Blue: vascular groove 2:36 PM [facility] Intraoperative Consultation B. Pancreas, head of pancreas, duodenum, bile duct, gallbladder, antrum. FS1 - Pancreatic neck margin: Negative for tumor. . This a preliminary intraoperative diagnosis. A final report will follow. 2:36 PM [facility] Gross Description A. Lymph Node, [...] 13.5 cm Lesser Curvature: 7.5 cm Serosa: Theba-red, smooth and glistening. Mucosa: Theba with the usual rugal folds DUODENUM Length/Diameter: 32 x 2.5 cm Serosa: Theba-red, smooth and glistening. Mucosa: Theba-red with the usual folds slightly polypoid proximal to the ampulla.. Ampulla of Vater: Patent, with stent in place. GALLBLADDER Size: 10 x 3 x 3 cm Serosa: Theba-purple and smooth Mucosa: Lumen contents consists of [...] 2 cm ill-defined firm indurated nodular area. [employer] Inspector sections in 37 cassettes as follows: B1: FS 1-pancreatic neck margin en face B2: Hepatic duct margin en face B3: Gastric margin en face B4: Duodenum margin en face B5: Pilot Safety Inspector gallbladder and cystic duct B6: Cystic duct [...] omentum lesion sns 4 2:36 PM EST [facility] Result Note THIS RESULT REQUIRES PHYSICIAN/IDANIA FOLLOW UP(A) 4 2:36 PM EST [facility] Tissue STRUCTURE OF LEFT GASTRIC LYMPH NODE / Unknown 01/23/2024 11:16 AM EST 01/23/2024 2:03 PM EST Comment:Pancreas cancer, com mon hepatic artery lymph node Tissue specimen (specimen) PANCREATIC STRUCTURE / Unknown 01/23/2024 12:47 PM EST 01/23/2024 1:55 PM EST Comment:Pancreas cancer Yellow: pancreatic neck margin FROZEN [place]: SMA Green: bile duct margin Blue: vascular groove Tor Balbuena MD PATHOLOGY/CYTOLOGY ORDERABLES [facility] [place] [address] * (ABNORMAL) Anaerobic Culture (01/23/2024 10:54 AM EST) Anaerobic Culture Rare Bacteroides fragilis group(A) VITEK 2 METHOD 01/27/2024 3:01 PM EST [facility] Tissue BILE DUCT STRUCTURE / Unknown 01/23/2024 10:54 AM EST Comment:Pancreatic cancer Tor Balbuena MD MICROBIOLOGY - GEN ERAL ORDERABLES [facility] [place] [address] * Tissue Culture, Aerobic Only (01/23/2024 10:54 AM EST) Tissue Culture No growth 01/27/2024 11:01 AM [facility] Gram Stain No neutrophils seen 01/27/2024 11:01 AM [facility] Gram Stain No microorganisms seen 01/27/2024 11:01 AM [facility] Tissue BILE DUCT STRUCTURE / Unknown 01/23/2024 10:54 AM EST Comment:Pancreatic cancer Tor Balbuena MD MICROBIOLOGY - GEN ERAL ORDERABLES [facility] [place] [address] * (ABNORMAL) Blood Gas, Arterial POC (01/23/2024 10:43 AM EST) pH, Arterial 7.43 7.35 - 7.45 01/23/2024 10:44 AM [facility] PH Corrected, Arterial 7.45 7.35 - 7.45 01/23/2024 10:44 AM [facility] PCO2, Arterial 41 35 - 45 mmHg 01/23/2024 10:44 AM [facility] PCO2 Corrected, Arterial 39 35 - 45 mmHg 01/23/2024 10:44 AM [facility] PO2, Arterial 233(H) 85 - 104 mmHg 01/23/2024 10:44 AM [facility] PO2 Corrected, Arterial 226.0(H) 85 - 104 mmHg 01/23/2024 10:44 AM [facility] Bicarbonate, Arterial 26.6(H) 20.0 - 26.0 mmol/L 01/23/2024 10:44 AM [facility] Base Excess, Arterial 2.3 -3.0 - 3.0 mmol/L 01/23/2024 10:44 AM [facility] Hemoglobin, Arterial 11.6(L) 13.7 - 16.5 g/dL 01/23/2024 10:44 AM [facility] Oxyhemoglobin, Arterial 96.1 94.0 - 97.0 % 01/23/2024 10:44 AM [facility] Carboxyhemoglobin , Arterial 0.2 % 01/23/2024 10:44 AM [facility] Comment: Nonsmokers: 0.5-1.5% COHB ?? Smokers: Variable ??but usually less than 10% ?? Toxic: 20-30% COHB ?? Lethal: Greater than 60% COHB Methemoglobin, Arterial 0.2 <=1.5 % 01/23/2024 10:44 AM [facility] Sodium, Arterial 136 135 - 145 mmol/L 01/23/2024 10:44 AM [facility] Potassium, Arterial 3.4(L) 3.5 - 5.0 mmol/L 01/23/2024 10:44 AM [facility] Chloride, Arterial 103 98 - 107 mmol/L 01/23/2024 10:44 AM [facility] Lactate, Arterial 1.3 0.5 - 2.2 mmol/L 01/23/2024 10:44 AM [facility] Fraction of Inspired Oxygen 50 % 01/23/2024 10:44 AM [facility] Flow Rate 0.6 L/min 01/23/2024 10:44 AM [facility] PF Ratio 466 Ratio 01/23/2024 10:44 AM [facility] Comment:PF ratio calculated using the non-temperature corrected pO2 result. Patient Temperature 35.6 C 01/23/2024 10:44 AM [facility] IONIZED CALCIUM, ARTERIAL 1.08(L) 1.15 - 1.33 mmol/L 01/23/2024 10:44 AM [facility] Glucose, Arterial 193 65 - 199 mg/dL 01/23/2024 10:44 AM [facility] Comment:Glucose Concentratio n >=200 mg/dL plus symptoms is consistent with Diabetes Mellitus. Blood ARTERIAL BLOOD / Unknown 01/23/2024 10:43 AM EST 01/23/2024 10:44 AM EST Tor Balbuena MD POINT OF CARE TEST ORDERABLES Performing Organization Address City/[facility]/ZIP Co de Phone Number [facility] [place] [address] * POC, GLUCOSE (01/23/2024 9:27 AM EST) [facility] Glucometer, POC 194 65 - 199 mg/dL 01/23/2024 9:27 AM EST [facility] Comment:Supplemental ranges: <140 mg/dL before meals <180 mg/dL all other times of the day. Blood CAPILLARY BLOOD / Unknown 01/23/2024 9:27 AM EST 01/23/2024 9:27 AM EST Tor Balbuena MD POINT OF CARE TEST ORDERABLES Performing Organization Address [facility] Co de Phone Number [facility] [place] [address] * ABORH RECHECK (PATIENT HISTORY FOUND) (01/23/2024 8:51 AM EST) [facility] ABORH Recheck Progress Complete 01/23/2024 11:01 AM EST [facility] Blood VENOUS BLOOD SPECIMEN / Unknown 01/23/2024 8:51 AM EST 01/23/2024 9:07 AM EST Tor Balbuena MD BLOOD BANK LAB ORD ERABLES Performing Organization Address City/[facility]/ZIP Co de Phone Number [facility] [place] [address] * Type and screen [place] (01/23/2024 8:51 AM EST) Pathologist [facility] ABORH Type O POSITIVE 01/23/2024 10:26 AM EST [facility] PATIENT HISTORY Found 01/23/2024 10:26 AM EST [facility] Expires at 2359 on: 2024 01/23/2024 10:26 AM EST [facility] ANTIBODY SCREEN AUTOMATED Negative 01/23/2024 10:26 AM EST [facility] T&S only valid at [facility] 01/23/2024 10:26 AM EST [facility] Blood VENOUS BLOOD SPECIMEN / Unknown 01/23/2024 8:51 AM EST 01/23/2024 9:07 AM EST Comment:Pre-op diagnosis: PANCREAS CANCER Narrative [facility] - 01/23/2024 10:26 AM EST This Type and Screen result is only valid at the [facility] Tor Balbuena MD BLOOD BANK LAB ORD ERABLES [facility] [address] [place] [address] * (ABNORMAL) Blood Gas, Arterial POC (01/23/2024 8:28 AM EST) pH, Arterial 7.42 7.35 - 7.45 01/23/2024 8:29 AM [facility] PH Corrected, Arterial 7.45 7.35 - 7.45 01/23/2024 8:29 AM [facility] PCO2, Arterial 36 35 - 45 mmHg 01/23/2024 8:29 AM [facility] PCO2 Corrected, Arterial 34(L) 35 - 45 mmHg 01/23/2024 8:29 AM [facility] PO2, Arterial 294(H) 85 - 104 mmHg 01/23/2024 8:29 AM [facility] PO2 Corrected, Arterial 286.3(H) 85 - 104 mmHg 01/23/2024 8:29 AM [facility] Bicarbonate, Arterial 23.0 20.0 - 26.0 mmol/L 01/23/2024 8:29 AM [facility] Base Excess, Arterial -1.4 -3.0 - 3.0 mmol/L 01/23/2024 8:29 AM [facility] Hemoglobin, Arterial 10.6(L) 13.7 - 16.5 g/dL 01/23/2024 8:29 AM [facility] Oxyhemoglobin, Arterial 96.2 94.0 - 97.0 % 01/23/2024 8:29 AM [facility] Carboxyhemoglobin , Arterial 0.2 % 01/23/2024 8:29 AM [facility] Comment: Nonsmokers: 0.5-1.5% COHB ?? Smokers: Variable ??but usually less than 10% ?? Toxic: 20-30% COHB ?? Lethal: Greater than 60% COHB Methemoglobin, Arterial 0.2 <=1.5 % 01/23/2024 8:29 AM [facility] Sodium, Arterial 135 135 - 145 mmol/L 01/23/2024 8:29 AM [facility] Potassium, Arterial 3.4(L) 3.5 - 5.0 mmol/L 01/23/2024 8:29 AM [facility] Chloride, Arterial 103 98 - 107 mmol/L 01/23/2024 8:29 AM [facility] Lactate, Arterial 1.2 0.5 - 2.2 mmol/L 01/23/2024 8:29 AM [facility] Fraction of Inspired Oxygen 63 % 01/23/2024 8:29 AM [facility] Flow Rate 0.7 L/min 01/23/2024 8:29 AM [facility] PF Ratio 467 Ratio 01/23/2024 8:29 AM [facility] Comment:PF ratio calculated using the non-temperature corrected pO2 result. Patient Temperature 35.4 C 01/23/2024 8:29 AM [facility] IONIZED CALCIUM, ARTERIAL 1.13(L) 1.15 - 1.33 mmol/L 01/23/2024 8:29 AM [facility] Glucose, Arterial 186 65 - 199 mg/dL 01/23/2024 8:29 AM [facility] Comment:Glucose Concentratio n >=200 mg/dL plus symptoms is consistent with Diabetes Mellitus. Blood ARTERIAL BLOOD / Unknown 01/23/2024 8:28 AM EST 01/23/2024 8:29 AM EST Kerrington D Balbuena MD POINT OF CARE TEST ORDERABLES [facility] [place] [address] * XR Fluoro No Rad <1Hr - OR Use (01/23/2024 7:50 AM EST) Narrative Dicom, Auditing User - 01/23/2024 8:08 AM EST This exam is auto-finalizing. No interpretation was done. Cayetano Rodgers MD IMG FLUORO ORDERABL ES * POC, GLUCOSE (01/23/2024 6:58 AM EST) Glucometer, POC 197 65 - 199 mg/dL 01/23/2024 7:01 AM EST [facility] Comment:Supplemental ranges: <140 mg/dL before meals <180 mg/dL all other times of the day. Blood CAPILLARY BLOOD / Unknown 01/23/2024 6:58 AM EST 01/23/2024 7:01 AM EST Tor Balbuena MD POINT OF CARE TEST ORDERABLES Performing Organization Address City/[facility]/ZIP Co de Phone Number [facility] [place] [address] documented in this encounter Visit Diagnoses Diagnosis [...] on 01/26/24 at 0845, Last dose on 01/27/24 at 0000, - Maximum dose of acetaminophen [...] Continuous (TPN), 1 dose, First dose on Sat01/27/24 at 1800, Last dose on Sat01/27/24 at [...] infusion 75 mL/hr, Intravenous, CONTINUOUS, Starting on 01/24/24 at 1045, Until 01/27/24 at 1800 New Bag 01/27/2024 9:39 AM [...] 40 mg, Subcutaneous, NIGHTLY, First dose on Ammy 01/23/24 at 2100, Until Discontinued, Routine Given 01/27/2024 [...] at 0611, Until Ammy 01/23/24 at 0754, Pain, epidural placement, Recovery (Recovery-Hospital Unit), Routine Given 01/23/2024 7:27 AM EST 2 5 mcg Given 01/23/2024 7:25 AM EST 25 mcg Given 01/23/2024 7:18 AM EST 50 mcg furosemide (Lasix) (10 mg/mL) injection 20 mg 20 mg, Intravenous, ONCE, 1 dose, On e 01/28/24 at 0815 Given 01/28/2024 8:39 AM EST [...] 1-10 mL, Subcutaneous, ONCE, 1 dose, On 01/27/24 at 0800, Subcutaneous preferred, but IV may [...] 10 mg, Intravenous, ONCE, 1 dose, On Sat01/27/24 at 1945 Given 01/27/2024 7:35 PM EST 10 mg hydrALAZINE (Apresoline) (20 mg/mL) injection 10 mg 10 mg, Intravenous, EVERY 6 HOURS PRN, Starting on 01/28/24 at 1437, Until 02/01/24 at 1452, High Blood Pressure, for SBP > 180, DBP >90 Given 01/29/2024 8:17 AM EST 10 mg hydrALAZINE (Apresoline) (20 mg/mL) injection 5 mg 5 mg, Intravenous, ONCE, 1 dose, On Sat01/27/24 at 1915 Given 01/27/2024 7:00 PM EST [...] mg, Intravenous, ONCE, 1 dose, On Ammy 01/23/24 at 0630, Recovery (Recovery-Hospital Unit), Routine Given 01/23/2024 7:48 AM EST 0.2 mg insulin glargine-ygfn (Semglee) (100 unit/mL) subcutaneous injection vial 15 Units 15 Units, Subcutaneous, DAILY, First dose on 01/26/24 at 0900, Until Discontinued, Routine Given 01/28/2024 [...] PRN, Starting on 01/26/24 at 0435, Until Tu01/28/24 at 0757, High Blood Pressure, Please give for SBP>160 or DBP>90. Hold for HR<60, Routine Given 01/28/2024 2:05 AM EST 10 mg Given 01/27/2024 6:45 PM EST 10 mg Given 01/27/2024 8:22 AM EST 10 mg labetaloL (Normodyne) (5 mg/mL) injection solution 20 mg 20 mg, Intravenous, ONCE, 1 dose, On 01/27/24 at 2015, STAT Given 01/27/2024 8:08 PM [...] 7:00 AM EST 10 0 mL/hr New 01/24/2024 1:50 AM EST 1,000 mLs 100 mL/hr New Bag 01/23/2024 6:00 PM EST 1,000 mLs 100 mL/hr tglykd-echjgeiy-mtvrmaq DR (Creon 24) 24,000-76,000 -120,000 unit per [...] 1757, Until 02/01/24 at 1452, insomnia/sleep, Routine Given 01/31/2024 8:16 [...] on Ammy 01/23/24 at 2100, Until Discontinued, Reconstitute with 10 [...] over 4 Hours, Warning Vesicant/Irritant Medication Per stamping die try out worker labeling, do not administer or Y-site with [...] over 4 Hours, Warning Vesicant/Irritant Medication Per stamping die try out worker labeling, do not administer or Y-site with [...] 40 mEq, Oral, ONCE, 1 dose, On 01/27/24 at 0245, potassium chloride ER particle/crystal tablets [...] over 4 Hours, Administer over 4-6 hours 01/25/2024 8:32 AM EST 15 mmol 62.5 [...] Yi, AYE)0506 (Given - Provider: Lilly Yi, AYE)1217 (Given - Provider: Julisa De La O RN)1747 (Given - Provider: Julisa De La O RN) 0008 (Given - Provider: Jonathan Velasco RN)0536 (Given - Provider: Jonathan Velasco RN)1200 (Due) Adult TPN (Custom) (CANCELED) Central, [...] Discontinued, Routine 0936 (Given - Provider: Bruno Frey, AYE) 0820 (Given - Provider: Julisa De La O RN) 0851 (Given - Provider: Julisa De La O RN) enoxaparin (Lovenox) (40 mg/0.4 mL) subcutaneous injection 40 mg 40 mg, Subcutaneous, NIGHTLY, First dose on Sat01/29/24 at 2100, Until Discontinued, Routine 2045 (Given - Provider: Lilly Yi, RN) 2016 (Given - Provider: Jonathan Velasco [...] Frey, AYE)1347 (Given - Provider: Bruno Frey, AYE)1805 (Given - Provider: Bruno Frey, RN)204 (Given - Provider: Lilly Yi RN) 0000 (Not Given - Provider: Lilly Yi RN - Reason: Order parameters not met)0511 (Given - Provider: Lilly Yi RN)0821 (Given - Provider: Julisa De La O, AYE)1200 (Given - Provider: Julisa De La O, AYE)1750 (Given - Provider: Julisa De La O, AYE)2020 (Given - Provider: Jonathan Velasco, AYE) 0000 (Not Given - Provider: Jonathan Velasco RN - Reason: Order parameters not met)0419 (Given - Provider: Jonathan Velasco RN)0854 (Given - Provider: Julisa De La O, AYE)1200 (Due) isosorbide mononitrate CR (Imdur) tablet 30 mg 30 mg, Oral, NIGHTLY, First dose on Sat01/29/24 at 2100, Until Discontinued, DO NOT CRUSH OR OPEN, Routine 2045 (Given - Provider: Lilly Yi, AYE) 2015 (Given - Provider: Jonathan Velasco, AYE) cwutey-umogoiog-mkhbrkt DR (Creon 24) 24,000-76,000 -120,000 unit per [...] La O RN)2017 (Given - Provider: Jonathan Velasco RN) 0115 (Given - Provider: Jonathan Velasco RN)0851 (Given - Provider: Julisa De La O RN) pantoprazole EC (Protonix) tablet 40 mg 40 mg, Oral, 2 TIMES DAILY, First dose on Sat01/29/24 at 2100, Until Discontinued 0936 (Given - Provider: Bruno Frey RN)2046 (Given - Provider: Lilly Yi RN) 0820 (Given - Provider: Julisa De La O RN)2016 (Given - Provider: Jonathan Velasco RN) 0851 (Given - Provider: Julisa De La O RN) piperacillin-tazobactam (Zosyn) 3.375 g vial attach to sodium chloride 0.9% 50 mL Mini-Bag Plus 3.375 g, Intravenous, EVERY 8 HOURS, 21 doses, First dose on Sat01/27/24 at 1345, Last dose on Sat02/03/24 at 0545, Administer over 4 Hours, Warning Vesicant/Irritant Medication Per stamping die try out worker labeling, do not administer or Y-site with lactated ringers., Indication for (Active or Suspected): GI/Intra-abdominal 0113 (Stopped - Provider: Lilly Yi RN)0451 (New Bag - Provider: Lilly Yi RN)0851 (Stopped - Provider: Bruno Frey RN)1626 (New Bag - Provider: Bruno Frey RN)202 (Stopped - Provider: Lilly Yi RN)211 (New Bag - Provider: Lilly Yi RN) 0119 (Stopped - Provider: Lilly Yi RN)0507 (New Bag - Provider: Lilly Yi RN)0907 (Stopped - Provider: Julisa De La O RN)1420 (New Bag - Provider: Julisa De La O RN)1820 (Stopped - Provider: Julisa De La O RN)202 (New Bag - Provider: Jonathan Velasco RN)2144 (Stopped - Provider: Jonathan Velasco RN)2145 (Canceled Entry - Provider: Jonathan Velasco RN [...] La O RN)2017 (Given - Provider: Jonathan Velasco RN) 0852 (Given - Provider: Julisa De La O, AYE) tamsulosin (Flomax) capsule 0.4 mg 0.4 mg, Oral, NIGHTLY, First dose on Sat01/24/24 at 2100, Until Discontinued, DO NOT CRUSH OR CHEW, Routine 2045 (Given - Provider: Lilly Yi, RN) 2015 (Given - Provider: Jonathan Velasco, RN) timoloL (Timoptic) 0.5 % ophthalmic solution 1 drop 1 drop, Right Eye, 2 TIMES DAILY, First dose on Sat01/27/24 at 1115, Until Discontinued, Routine 0937 (Given [...] Intravenous, EVERY 8 HOURS PRN, Starting on Mamy 01/23/24 at 2030, Until 02/01/24 at 1452, [...] Routine documented in this encounter Care Teams Paunch Trimmer Relationship Specialty Start Date End Date Tristen uHnter MD [address] [place] [address] [place] [address] PCP - General Family Medicine 07/04/23 documented as of this encounter
--- OUTSIDE RECORDS SUMMARY | 2024-03-26 10:32 | XMS_ITS | Encounter Summary ---
[place] [address] Care Team Providers Care Operating System Designer Name Role Phone Tristen Hunter MD Primary Care Provider [phone] Encounter Details Date Type Department Care Team (Late st Contact Info) Description 01/24/2024 11:59 PM EST Anesthesia Event Intermediate [place] [address] Madan Lou RN Anesthesia Record [...] oz pur e alcohol) [facility] Utilities Answer Date Recorded In the [...] in a usp (including now)? No 06/04/2023 Housing Stability Vital Sign Answer Meek e Recorded In the last 12 months, was t here a time when you were not able to pay the mortgage or rent on time? No 01/24/2024 In the past 12 months, how m any times have you moved where you were living? 0 01/24/2024 At any time in the past 12 m [facility], were you homeless or living in a usp (including now)? No 01/24/2024 DH IPV Inpatient [...] AM EST Office Visit Hematology/Oncology at [address] [phone] Cl Hess MD [facility] [place] [address] [address] HEMATOLOGY AND ONCOLOGY [place], [place] [phone] 04/09/2024 10:00 AM EST Infusion Hematology Oncology at [address] [phone] 04/23/2024 9:30 AM EST Office Visit Hematology/Oncology at [address] [phone] Cl Hess MD [facility] [address] Yessi Renee, [address] HEMATOLOGY AND ONCOLOGY [place], [place] [phone] 04/23/2024 10:00 AM EST Infusion Hematology Oncology at [address] [phone] 05/18/2024 4:30 PM EDT TH Visit (TeleHealth) [place] [address] Malachi Rothman MD [facility] [place] [address] 09/24/2024 9:00 AM EDT Office Visit Radiation Oncology at [address] [phone] Ping Moore PA [facility] [place] [address] documented as of this encounter Visit Diagnoses Not on filedocumented in this encounter Care Teams Operating System Designer Relationship Specialty Start Date End Date Tristen Hunter MD [address] [place] [address] [place] [address] PCP - General Family Medicine 07/04/23 documented as of this encounter
--- OUTSIDE RECORDS SUMMARY | 2024-03-26 10:33 | XMS_ITS | Encounter Summary ---
Author Organization [facility] Address [facility] [place] [address] Care Team Providers Care Head Baker Name Role Phone Tristen Hunter MD Primary Care Provider [phone] Encounter Details Date Type Department Care Team (Latest Contact Info) Description 12/31/2023 9:00 AM EDT TH Visit (TeleHealth) Radiation Oncology at [address] [phone] Ping Moore PA [facility] DR HEMATOLOGY [place] [address] Malignant neoplasm of prostate (Primary Dx); S/P radiotherapy Social History Tobacco Use Types Packs/Day Years Used Date Smoking Tobacco: Former Cigarettes 4 30 1 1992 Smokeless Tobacco: Never Alcohol Use Standard Drinks/Week Comments Yes 7 (1 standard drink = 0.6 oz pur e alcohol) [facility] Utilities Answer Date Recorded In the past 12 months has e [employer], gas, oil, or water [employer] threatened to shut off services in your [...] Moore PA - 12/31/2023 9:00 AM EDT [facility] [place] [address] TELEHEALTH FOLLOW-UP: Patient: Wero Sadler : 1950 [...] well. 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 Reports some balance issues 2/2 [...] Prior to Visit Medication Sig Dispense Refill hucltv-umcdwbvw-ppzrrws DR (Creon 24) 24,000-76,000 -120,[address] [...] Take 20 mg by mouth daily. omega 6-bhf-fbn-fish oil 250-350-1,000 mg Capsule Take 1,000 mg [...] Labs Reviewed This Visit: Date PSA Testosterone (124-142) *exception Notes 03/2020 15.4 05/2020 18.5 10/05/20 [...] is almost completely blind): 3 months Labs ([facility]): PSA, Testosterone Wero Sadler had the opportunity [...] AM EST Office Visit Hematology/Oncology at [address] [phone] Cl Hess MD [facility] [place] [address] Yessi Renee, [address] HEMATOLOGY AND ONCOLOGY [place], [place] [phone] 04/09/2024 10:00 AM EST Infusion Hematology Oncology at [address] [phone] 04/23/2024 9:30 AM EST Office Visit Hematology/Oncology at [address] [phone] Cl Hess MD [facility] [place] [address] Yessi Renee, [address] HEMATOLOGY AND ONCOLOGY [place], [place] [phone] 04/23/2024 10:00 AM EST Infusion Hematology Oncology at [address] [phone] 05/18/2024 4:30 PM EDT TH Visit (TeleHealth) [place] [address] Malachi Rothman MD [facility] RADIATION [place] [address] 09/24/2024 9:00 AM EDT Office Visit Radiation Oncology at [address] [phone] Ping Moore PA [facility] DR HEMATOLOGY [place] [address] Scheduled Orders Name Type Priority Associated Diagnoses Orde r Schedule PSA (Ultrasensitive) Lab Routine Malignant neoplasm of prostate Expected: 03/07/2024 (Approximate), Expires: 09/06/2024 Testosterone, total Lab Routine Malignant neoplasm of prostate Expected: 03/07/2024 (Approximate), Expires: 09/06/2024 documented as of this encounter Visit Diagnoses Diagnosis Malignant neoplasm of prostate- Primary S/P radiotherapy Convalescence following radiotherapy documented in this encounter Care Teams Head Baker Relationship Specialty Start Date End Date Tristen Hunter MD [address] [place] [address] [place] [address] PCP - General Family Medicine 07/04/23 documented as of this encounter
--- OUTSIDE RECORDS SUMMARY | 2024-03-26 10:33 | XMS_ITS | Encounter Summary ---
[place] [address] Care Team Providers Care Pattern Storage Clerk Name Role Phone Tristen Hunter MD Primary Care Provider [phone] Encounter Details Date Type Department Care Team (Latest Contact Info) Description 01/08/2024 Specialty [place] [phone] lSim De La Cruz, [facility] Refill Coordination - Manual (lipase/protease/amyl [...] Progress Notes * Slim De La Cruz [facility] - 01/08/2024 1:05 PM EST Clinical Management [...] procedure at [facility] in [place]: shaking Has tolerated MRI and CT contrast. Pazopanib Other (See Comments) [id number] Poor Metabolizer. See Clinical Pharmacist Note from 07/04/23 for information. Sacituzumab Govitecan-Hziy Other (See Comments) [id number] Poor Metabolizer. See Clinical Pharmacist Note from 07/04/23 for dosing recommendations. Medication Reconciliation Discrepancies (compared to [facility] med list) -none Review Flowsheet 01/08/2024 1:06 PM Assessment What is the name of the specialty medication you are refilling? Creon [address] Are you taking any new medications? No [...] were made at the appointment and that [facility] is providing recommendations (summary located at top of note) for provider review and follow up. Slim De La Cruz RPH 01/08/24 1:08 PM documented in this encounter Plan of Treatment Upcoming Encounters Date Type Department Care Team (Late st Contact Info) Description 04/09/2024 9:30 AM EST Office Visit Hematology/Oncology at [address] [phone] Cl Hess MD [facility] [place] [address] [address] HEMATOLOGY AND ONCOLOGY [place], [place] [address] 04/09/2024 10:00 AM EST Infusion Hematology Oncology at [address] [phone] 04/23/2024 9:30 AM EST Office Visit Hematology/Oncology at [address] [phone] Cl Hess MD [facility] [place] [address] [address] HEMATOLOGY AND ONCOLOGY [place], [place] [phone] 04/23/2024 10:00 AM EST Infusion Hematology Oncology at [address] [phone] 05/18/2024 4:30 PM EDT TH Visit (TeleHealth) [place] [address] Malachi Rothman MD [facility] [place] [address] 09/24/2024 9:00 AM EDT Office Visit Radiation Oncology at [address] [phone] Ping Moore PA [facility] [place] [address] documented as of this encounter Visit Diagnoses Not on filedocumented in this encounter Care Teams Pattern Storage Clerk Relationship Specialty Start Date End Date Tristen Hunter MD [address] [place] [address] [place] [address] PCP - General Family Medicine 07/04/23 documented as of this encounter
--- OUTSIDE RECORDS SUMMARY | 2024-03-26 10:33 | XMS_ITS | Encounter Summary ---
[place] [address] Care Team Providers Care Physician Relations Specialist Name Role Phone Tristen Hunter MD Primary Care Provider [phone] Reason for Referral * Diagnostic Test (Routine) - Closed Specialty Diagnoses / Procedures Referred By Marques livingston Referred To Contact Radiology Diagnoses Malignant neoplasm of head of pancreas Procedures CT Chest Abdomen Pelvis w Contrast (Generic) Charu Balbuena MD [facility] [place] [address] [facility] [place] [address] Referral ID Status Reason Start Date Expiration Date V isits Requested Visits Authorized [id number] Closed Specialty Service Requested 11/27/2023 05/26/2025 1 1 Reason for Visit * Diagnostic Test (Routine) - Closed Specialty Diagnoses / Procedures Referred By Contermelinda t Referred To Contact Radiology Diagnoses Malignant neoplasm of head of pancreas Procedures CT Chest Abdomen Pelvis w Contrast (Generic) Charu Balbuena MD [facility] [place] [address] [facility] [place] [address] Referral ID Status Reason Start Date Expiration Date V isits Requested Visits Authorized [id number] Closed Specialty Service Requested 11/27/2023 05/26/2025 1 1 Encounter Details Date Type Department Care Team (Late st Contact Info) Description 12/17/2023 1:26 PM EDT - 12/17/2023 11:59 PM EDT Hospital [place] [address] Charu Balbuena MD [facility] [place] [address] Malignant neoplasm of head of pancreas Discharge Disposition: Home Social History Tobacco Use Types Packs/Day Years Used Date Smoking Tobacco: Former Cigarettes 4 30 1 3 - 1992 Smokeless Tobacco: Never Alcohol Use Standard Drinks/Week Comments Yes 7 (1 standard drink = 0.6 oz pur e alcohol) [facility] Utilities Answer Date Recorded In the past 12 months has e electric, gas, oil, or water [employer] threatened to shut off services in your [...] Sig Dispensed Refills Start Date End Date ylfaaj-nwnvwtwh-tmn lase DR (Creon 24) 24,000-76,000 -120,000 unit [...] mg by mouth as needed. 05/20/2023 omega 1-seh-wrz-fish oil 250-350-1,000 mg Capsule Take 1,000 mg [...] AM EST Office Visit Hematology/Oncology at [address] [phone] Cl Hess MD [facility] [place] [address] HEMATOLOGY AND ONCOLOGY [place], [place] [phone] 04/09/2024 10:00 AM EST Infusion Hematology Oncology at [address] [phone] 04/23/2024 9:30 AM EST Office Visit Hematology/Oncology at [address] [phone] Cl Hess MD [facility] [place] [address] [address] HEMATOLOGY AND ONCOLOGY [place], [place] [phone] 04/23/2024 10:00 AM EST Infusion Hematology Oncology at [address] [phone] 05/18/2024 4:30 PM EDT TH Visit (TeleHealth) [place] [address] Malachi Rothman MD [facility] [place] [address] 09/24/2024 9:00 AM EDT Office Visit Radiation Oncology at [address] [phone] Ping Moore PA [facility] [place]AT[place] [address] documented as of this encounter Procedures Procedure Name Priority Date/Time Associated Diagnosis Comments CT CHEST ABDOMEN PELVIS W CONTRAST (GENERIC) Routine 12/17/2023 2:09 PM EDT Malignant neoplasm of head of pancreas documented in this encounter Results * CT Chest Abdomen Pelvis w Contrast (Generic) (12/17/2023 2:09 PM EDT) WORKSTATION ID [id number] RAD Anatomical Region Laterality Modality Abdomen, Pelvis [...] who have questions please contact the health mall plant caretaker that requested your imaging first. ? Electronically signed by: Cayetano Barron [facility] ([phone]), at 12/18/2023 8:21 AM Narrative 12/18/2023 8:21 AM EDT EXAMINATION: CT [...] with significant calcification of the aorta and rincon coronary vessels. I do not appreciate any [...] with significant calcification of the aorta and rincon coronary vessels. I do notappreciate any bulky [...] the arterial phase series there is persistent dpo-xkfdvjbuxo-wetwrbsntmt along the right and inferior aspect of [...] patients who have questions please contactthe health mall plant caretaker that requested your imaging first. Electronically signed by: Cayetano Barron [facility]([phone]), at 12/18/2023 8:21 AM Charu Balbuena MD IMG CT ORDERABLES documented [...] mLs documented in this encounter Care Teams Physician Relations Specialist Relationship Specialty Start Date End Date Tristen Hunter MD [address] [place] [address] [place] [address] PCP - General Family Medicine 07/04/23 documented as of this encounter
--- OUTSIDE RECORDS SUMMARY | 2024-03-26 10:33 | XMS_ITS | Encounter Summary ---
[place] [address] Care Team Providers Care Taffy Candy Maker Name Role Phone Tristen Hunter MD Primary Care Provider [phone] Encounter Details Date Type Department Care Team (Late st Contact Info) Description 01/13/2024 Telephone [place] [address] Tracie Rodriguez, RN Social History Tobacco Use Types Packs/Day Years Used Date Smoking Tobacco: Former Cigarettes 4 30 1 963 - 1992 Smokeless Tobacco: Never Alcohol Use Standard Drinks/Week Comments Yes 7 (1 standard drink = 0.6 oz pur e alcohol) [facility] Utilities Answer Date Recorded In the past 12 months has [employer] gas, oil, or water company threatened to [...] Department Care Team (Leslye Contact Info) Description 04/09/2024 9:30 AM EST Office Visit Hematology/Oncology at [address] [phone] Cl Hess MD [facility] [place] [address] [address] HEMATOLOGY AND ONCOLOGY [place], [place] [phone] 04/09/2024 10:00 AM EST Infusion Hematology Oncology at [address] [phone] 04/23/2024 9:30 AM EST Office Visit Hematology/Oncology at [address] [phone] Cl Hess MD [facility] [address] [address] HEMATOLOGY AND ONCOLOGY [place], [place] [phone] 04/23/2024 10:00 AM EST Infusion Hematology Oncology at [address] [phone] 05/18/2024 4:30 PM EDT TH Visit (TeleHealth) [place] [address] Malachi Rothman MD [facility] [place] [address] 09/24/2024 9:00 AM EDT Office Visit Radiation Oncology at [address] [phone] Ping Moore PA [facility] [place] [address] documented as of this encounter Visit Diagnoses Not on filedocumented in this encounter Care Teams Taffy Candy Maker Relationship Specialty Start Date End Date Tristen Hunter MD [address] [place] [address] [place] [address] PCP - General Family Medicine 07/04/23 documented as of this encounter
--- OUTSIDE RECORDS SUMMARY | 2024-03-26 10:33 | XMS_ITS | Encounter Summary ---
[place] [address] Care Team Providers Care Behavioral Health Clinician Name Role Phone Tristen Hunter MD Primary Care Provider [phone] Encounter Details Date Type Department Care Team (Late st Contact Info) Description 12/04/2023 Telephone [place] [address] Marga Thorpe Social History Tobacco [...] - 12/04/2023 12:38 PM EDT Wero Sadler [id number] Diagnosis/Indication: suspected stent obstruction Please review patient [...] procedure? No You must have a responsible libertarian who will drive you to your procedure, stay on campus for the entire duration of your procedure, and drive you home from your procedure. Who will likely be your bulk driver for the procedure? *Please Verify the [...] AM EST Office Visit Hematology/Oncology at [address] [phone] Cl Hess MD [facility] [place] [address] Yessi Renee APRN [address] [place] [address] DR [place] [address] 04/09/2024 10:00 AM EST Infusion Hematology Oncology at [address] [phone] 04/23/2024 9:30 AM EST Office Visit Hematology/Oncology at [address] [phone] Cl Hess MD [facility] [place] [address] Yessi Renee APRN [address] [place] [address] DR HEMATOLOGY AND ONCOLOGY [place], [place] [address] 04/23/2024 10:00 AM EST Infusion Hematology Oncology at [address] [phone] 05/18/2024 4:30 PM EDT TH Visit (TeleHealth) [place] [address] Malachi Rothman MD [facility] [place] [address] 09/24/2024 9:00 AM EDT Office Visit Radiation Oncology at [address] [phone] Ping Moore PA [facility] DR [place] [address] documented as of this encounter Visit Diagnoses Not on filedocumented in this encounter Care Teams Behavioral Health Clinician Relationship Specialty Start Date End Date Tristen Hunter MD [address] [place] [address] [place] [address] PCP - General Family Medicine 07/04/23 documented as of this encounter
--- OUTSIDE RECORDS SUMMARY | 2024-03-26 10:33 | XMS_ITS | Encounter Summary ---
[place] [address] Care Team Providers Care Plastic Parts Fabricator Trimmer Name Role Phone Tristen Hunter MD Primary Care Provider [phone] Reason for Visit * Auth/Cert (Routine) Specialty Diagnoses / Procedures Referred By Contac t Referred To Contact Diagnoses PANCREAS CANCER Procedures PRO PART REMV PANC, PROX+REMV DUOD+ANAST @WHIPPLE PROCEDURE (WRVU 52.84) Charu Balbuena MD [facility] [place] [address] [facility] Referral ID Status Reason Start Date Expiration Date Visits Re quested Visits Authorized [id number] 1 1 Encounter Details Date Type Department Care Team (Late st Contact Info) Description 01/23/2024 7:52 AM EST Anesthesia Event [place] [phone] Shaheen Cody MD [facility] [place] [address] Zuleima Aguirre, AYE Anesthesia Record Procedure Summary Procedure Name Responsible Anesthesiologist Anesthesia Start Time Anesthesia Stop Time @TEANECK PROCEDURE (WRVU 52.84) (Abdomen) Shaheen Cody MD [...] issues and expected post-operative course (including disposition.) Alton Castaneda CRNA 1123 Break/Relief In I assumed [...] questions and acknowledgement of understanding DENYS BROWN, BUSINESS BANKING MANAGER 1521 Break/Relief Out 1523 ABG Data Arterial [...] by x-ray; charu balbuena 07/05/23 1440 by Larua Walsh RN Incision 01/23/24; 0841; abdo men; midline 01/23/24 0841 by Floridalma Camp RN PIV bzpm-izw-avovnh cath eter system; 16 gauge; cephalic vein (lateral side of arm), left; Anatomical Landmarks; US Not Used; Roroner; intradermal injection; removed per policy/procedure, catheter/device intact, site symptomatic; 01/28/24; 0516 01/23/24 0700 by 01/28/24 0516 by Jace Montano RN PIV udgc-yxo-ccliid cath eter system; 14 gauge; cephalic vein [...] oz pur e alcohol) [facility] Utilities Answer Date Recorded In the past 12 months has [employer], gas, oil, or water [employer] threatened to shut off services in [...] any time in the past 12 m [facility], were you homeless or [...] Procedure Summary Date: 01/23/24 Room / Location: [address] MAIN OR Anesthesia Start: 751 Anesthesia Stop: 1656 Procedures: @WHIPPLE PROCEDURE (WRVU 52.84) (Abdomen) PORTAL VEIN REPAIR (WRVU 13.24) @OMENTAL FLAP, INTRA-ABDOMINAL (WRVU 6.54) (Abdomen) Diagnosis: (PANCREAS CANCER) Surgeons: Charu Balbuena MD Responsible Provider: Shaheen Cody MD Anesthesia Type: general ASA Status: 3 All Anesthesia Providers: Anesthesiologist: Shaheen Cody MD BUSINESS BANKING MANAGER: Alton Castaneda CRNA; Madan Luke CRNA; Alley Kate CRNA Student Nurse Crab Catcher: Connie Colmenares V Vitals Value Taken Time BP 109/63 01/23/24 1715 Temp 37.2 ??C (99 ??F) 01/23/24 1654 Pulse 71 01/23/24 1724 Resp 20 01/23/24 1724 SpO2 100 % 01/23/24 1724 Pain Level Vitals shown include unfiled device data. Patient Location: PACU/[facility] Level of Consciousness: Conscious but Sleepy [...] procedure well without complicatio ns. 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 Coronary artery disease ??? Coronary artery [...] 0.3) performed by Charu Balbuena MD at [facility] OSC ??? PRO ARTHROPLASTY ACETABULAR/PROX FEM PROSTC AGRFT/ALGRFT Left 10/10/2020 TOTAL HIP ARTHROPLASTY - POSTERIOR (WRVU 20.72) performed by Ismael Wu MD at [facility] MAIN OR ??? PRO ARTHROPLASTY ACETABULAR/PROX FEM PROSTC AGRFT/ALGRFT Right 11/17/2021 TOTAL HIP ARTHROPLASTY - POSTERIOR (WRVU 20.72) performed by Ismael Wu MD at [facility] MAIN OR ??? PRO ENDOSCOPIC US EXAM, ESOPH N/A 07/02/2023 UPPER EUS- ENDOSCOPIC ULTRASOUND (WRVU 3.47) performed by Pako Lopez MD at [facility] ENDOSCOPY ??? PRO ERCP, W/REMOVAL STONE, TARYN/PANCR DUCTS 07/02/2023 ERCP W/REMOVAL CALCULI/DEBRIS FROM BILARY/PANCREATIC DUCT(S) (WRVU 6.63) performed by Pako Lopez MD at [facility] ENDOSCOPY ??? PRO ERCP,DIAGNOSTIC N/A 07/02/2023 ERCP (WRVU 5.85) performed by Pako Lopez MD at [facility] ENDOSCOPY ??? PRO EXPLORATION NOT FOLLOWED BY SURG NECK ARTERY Right 07/14/2021 @EXPLORATION NOT FOLLOWED BY SURGICAL REPAIR, ARTERY; NECK (CAROTID OR SUBCLAVIAN) (WRVU 9.19) performed by Basim Barr MD at [facility] MAIN OR ??? PRO INSERT TUNNELED CV CATH W SUBQ PORT, AGE 5 YRS OR OLDER N/A 07/05/2023 MARIO\AMELIA.CATHETER,TUNNELED, WITH SQ PORT OR PUMP OVER 5YR (WRVU 5.79) performed by Maggi Balbuena MD at [facility] OSC ??? PRO LAP, DIAGNOSTIC ABDOMEN N/A 07/05/2023 LAPAROSCOPY, DIAGNOSTIC, ABDOMEN (WRVU 5.14) performed by Charu Balbuena MD at [facility] OSC ??? PRO LASER VAPORIZATION SURGERY PROSTATE, COMPLETE Midline 02/02/2021 CYSTO, LASER TURP (WRVU 12.15) performed by Cayetano Engle MD at [facility] MAIN OR ??? PRO PLACE TRANSCATHETER STENT, CCA W EMBOLIC PROECT Right 07/14/2021 @TRANSCATH INTRAVASCULAR STENT,CAROTID,PERC,W\EMBOLIC PROT. (WRVU 18) performed by Basim Barr MD at [facility] MAIN OR Social History Tobacco [...] at [facility] in [place]: shaking Has tolerated [...] consented to blood products. Plan discussed with BUSINESS BANKING MANAGER. Anesthesia Screening documented in this encounter Plan of Treatment Upcoming Encounters Date Type Department Care Team (Late st Contact Info) Description 04/09/2024 9:30 AM EST Office Visit Hematology/Oncology at [address] [phone] Cl Hess MD [facility] [place] [address] [address] HEMATOLOGY [place] [address] 04/09/2024 10:00 AM EST Infusion Hematology Oncology at [address] [phone] 04/23/2024 9:30 AM EST Office Visit Hematology/Oncology at [address] [phone] Cl Hess MD [facility] [place] [address] [address] HEMATOLOGY [place] [address] 04/23/2024 10:00 AM EST Infusion Hematology Oncology at [address] [phone] 05/18/2024 4:30 PM EDT TH Visit (TeleHealth) [place] [address] Malachi Rothman MD [facility] [place] [address] 09/24/2024 9:00 AM EDT Office Visit Radiation Oncology at [address] [phone] Ping Moore PA [facility] HEMATOLOGY [place] [address] documented as of this encounter Procedures Procedure Name Priority Date/Time Associated Diagnosis Comments [id number] ONLY Routine 01/23/2024 7:22 AM EST documented in this encounter Results * [id number] ONLY (01/23/2024 7:22 AM EST) Narrative Cayetano [...] procedure well without complications. Performed by: ?? Resident/BUSINESS BANKING MANAGER: ? Jace Lyons MD ?? Fellow: ?Kolton Morejon, DO ?? Attending Physician: ? Cayetano Rodgers MD Authorized by: Cayetano Rodgers MD ?? ~~~~~~~~~~~~~~~~~~~~~~~~~~~~~~~~~~~~~~~~~~~~~~~~~~~~~~~~~~~~ Cayetano Rodgers MD [employer] [facility] documented in this encounter Visit Diagnoses [...] Units documented in this encounter Care Teams Plastic Parts Fabricator Trimmer Relationship Specialty Start Date End Date Tristen Hunter MD [address] [place] [address] [place] [address] PCP - General Family Medicine 07/04/23 documented as of this encounter
--- OUTSIDE RECORDS SUMMARY | 2024-03-26 10:33 | XMS_ITS | Encounter Summary ---
[place] [address] Care Team Providers Care Stencil Maker Name Role Phone Tristen Hunter MD Primary Care Provider [phone] Encounter Details Date Type Department Care Team (Late st Contact Info) Description 12/05/2023 Orders Only Hematology/Oncology at [address] [phone] Yessi Renee, [address] [place] [address] Malignant neoplasm of prostate Social History Tobacco Use Types Packs/Day Years Used Date Smoking Tobacco: Former Cigarettes 4 30 1 3 - 1992 Smokeless Tobacco: Never Alcohol Use Standard Drinks/Week Comments Yes 7 (1 standard drink = 0.6 oz pur e alcohol) [facility] Utilities Answer Date Recorded In the past 12 months has [employer], gas, oil, or water company threatened [...] AM EST Office Visit Hematology/Oncology at [address] [phone] Cl Hess MD [facility] [address] [address] HEMATOLOGY AND ONCOLOGY [place], [place] [address] 04/09/2024 10:00 AM EST Infusion Hematology Oncology at [address] [phone] 04/23/2024 9:30 AM EST Office Visit Hematology/Oncology at [address] [phone] Cl Hess MD [facility] [place] [address] [address] HEMATOLOGY AND ONCOLOGY [place], [place] [address] 04/23/2024 10:00 AM EST Infusion Hematology Oncology at [address] [phone] 05/18/2024 4:30 PM EDT TH Visit (TeleHealth) [place] [address] Malachi Rothman MD [facility] [place] [address] 09/24/2024 9:00 AM EDT Office Visit Radiation Oncology at [address] [phone] Ping Moore PA [facility] DR [place] [address] documented as of this encounter Visit Diagnoses Diagnosis Malignant neoplasm of prostate documented in this encounter Care Teams Stencil Maker Relationship Specialty Start Date End Date Tristen Hunter MD [address] [place] [address] [place] [address] PCP - General Family Medicine 07/04/23 documented as of this encounter
--- OUTSIDE RECORDS SUMMARY | 2024-03-26 10:33 | XMS_ITS | Encounter Summary ---
Author Organization [facility]ly [facility] [place] [address] Care Team Providers Care Measurement And Verification Engineer Name Role Phone Tristen Hunter MD Primary Care Provider [phone] Encounter Details Date Type Department Care Team (Late st Contact Info) Description 12/18/2023 1:00 PM EDT Office Visit Hematology/Oncology at [address] [phone] [facility] DR [place] [address] Colorectal cancer Social History Tobacco Use Types Packs/Day Years Used Date Smoking Tobacco: Former Cigarettes 4 30 1 3 - 1992 Smokeless Tobacco: Never Alcohol Use Standard Drinks/Week Comments Yes 7 (1 standard drink = 0.6 oz pur e alcohol) [facility] Utilities Answer Date Recorded In the past 12 months has [employer], gas, oil, or water company threatened [...] has been trying to manage 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 He has a CGM, and cell [...] 24 hour recall: Breakfast: 2 eggs, 2 greenlandic muffins, 4 slices cheese, 4 donut holes [...] AM EST Office Visit Hematology/Oncology at [address] [phone] Cl Hess MD [facility] [place] [address] Yessi Renee, [address] HEMATOLOGY AND ONCOLOGY [place], [place] [id number] 04/09/2024 10:00 AM EST Infusion Hematology Oncology at [address] [phone] 04/23/2024 9:30 AM EST Office Visit Hematology/Oncology at [address] [phone] Cl Hess MD [facility] [place] [address] [address] HEMATOLOGY AND ONCOLOGY [place], [place] [phone] 04/23/2024 10:00 AM EST Infusion Hematology Oncology at [address] [phone] 05/18/2024 4:30 PM EDT TH Visit (TeleHealth) [place] [address] Malachi Rothman MD [facility] [place] [address] 09/24/2024 9:00 AM EDT Office Visit Radiation Oncology at [address] [phone] Ping Moore PA [facility] DR [place] [address] documented as of this encounter Visit Diagnoses Diagnosis Colorectal cancer Malignant neoplasm of rectosigmoid junction documented in this encounter Care Teams Measurement And Verification Engineer Relationship Specialty Start Date End Date Tristen Hunter MD [address] [place] [address] [place] [address] PCP - General Family Medicine 07/04/23 documented as of this encounter
--- OUTSIDE RECORDS SUMMARY | 2024-03-26 10:33 | XMS_ITS | Encounter Summary ---
[place] [address] Care Team Providers Care Gamma Ray Operator Name Role Phone Tristen Hunter MD Primary Care Provider [phone] Encounter Details Date Type Department Care Team (Late st Contact Info) Description 12/06/2023 Telephone Hematology/Oncology at [address] [phone] Kristi Alvarado, RN Social History Tobacco Use Types Packs/Day Years Used Date Smoking Tobacco: Former Cigarettes 4 30 1 963 - 1992 Smokeless Tobacco: Never Alcohol Use Standard Drinks/Week Comments Yes 7 (1 standard drink = 0.6 oz pur e alcohol) [facility] Utilities Answer Date Recorded In the past 12 months has [employer], gas, oil, or water company threatened to [...] AM EST Office Visit Hematology/Oncology at [address] [phone] Cl Hess MD [facility] [place] [address] Yessi Renee, [address] HEMATOLOGY AND ONCOLOGY [place], [place] [address] 04/09/2024 10:00 AM EST Infusion Hematology Oncology at [address] [phone] 04/23/2024 9:30 AM EST Office Visit Hematology/Oncology at [address] [phone] Cl Hess MD [facility] [place] [address] [address] HEMATOLOGY AND ONCOLOGY [place], [place] [phone] 04/23/2024 10:00 AM EST Infusion Hematology Oncology at [address] [phone] 05/18/2024 4:30 PM EDT TH Visit (TeleHealth) [place] [address] Malachi Rothman MD [facility] [place] [address] 09/24/2024 9:00 AM EDT Office Visit Radiation Oncology at [address] [phone] Ping Moore PA [facility] DR [place] [address] documented as of this encounter Visit Diagnoses Diagnosis Malignant neoplasm of head of pancreas documented in this encounter Care Teams Gamma Ray Operator Relationship Specialty Start Date End Date Tristen Hunter MD [address] [place] [address] [place] [address] PCP - General Family Medicine 07/04/23 documented as of this encounter
--- OUTSIDE RECORDS SUMMARY | 2024-03-26 10:33 | XMS_ITS | Encounter Summary ---
[place] [address] Care Team Providers Care Skin Diving Teacher Name Role Phone Tristen Hunter MD Primary Care Provider [phone] Encounter Details Date Type Department Care Team [...] Recorded In the past 12 months has [employer], gas, oil, or water company [...] AM EST Office Visit Hematology/Oncology at [address] [phone] Cl Hess MD [facility] [place] [address] Yessi Renee APRN [address] [place] [address] DR HEMATOLOGY AND ONCOLOGY [place], [place] [id number] 04/09/2024 10:00 AM EST Infusion Hematology Oncology at [address] [phone] 04/23/2024 9:30 AM EST Office Visit Hematology/Oncology at [address] [phone] Cl Hess MD [facility] [place] [address] Yessi Renee APRN [address] [place] [address] DR HEMATOLOGY AND ONCOLOGY [place], [place] [address] 04/23/2024 10:00 AM EST Infusion Hematology Oncology at [address] [phone] 05/18/2024 4:30 PM EDT TH Visit (TeleHealth) [place] [address] Malachi Rothman MD [facility] [place] [address] 09/24/2024 9:00 AM EDT Office Visit Radiation Oncology at [address] [phone] Ping Moore PA [facility] DR HEMATOLOGY [place] [address] documented as of this encounter Visit Diagnoses Not on filedocumented in this encounter Care Teams Skin Diving Teacher Relationship Specialty Start Date End Date Tristen Hunter MD [address] [place] [address] [place] [address] PCP - General Family Medicine 07/04/23 documented as of this encounter
--- OUTSIDE RECORDS SUMMARY | 2024-03-26 10:33 | XMS_ITS | Encounter Summary ---
[place] [address] Care Team Providers Care Urban Gardening Specialist Name Role Phone Tristen Hunter MD Primary Care Provider [phone] Encounter Details Date Type Department Care Team (Late st Contact Info) Description 12/06/2023 Orders Only Hematology Oncology at [address] [phone] [address] [place] [address] Social History Tobacco Use Types Packs/Day Years Used Date Smoking Tobacco: Former Cigarettes 4 30 1 3 - 1992 Smokeless Tobacco: Never Alcohol Use Standard Drinks/Week Comments Yes 7 (1 standard drink = 0.6 oz pur e alcohol) [facility] Utilities Answer Date Recorded In the past 12 months has [employer], gas, oil, or water company threatened [...] AM EST Office Visit Hematology/Oncology at [address] [phone] Cl Hess MD [facility] [place] [address] Yessi Renee APRN [address] [place] [address] DR [place]Y [place] [address] 04/09/2024 10:00 AM EST Infusion Hematology Oncology at [address] [phone] 04/23/2024 9:30 AM EST Office Visit Hematology/Oncology at [address] [phone] Cl Hess MD [facility] [place] [address] [address] HEMATOLOGY AND ONCOLOGY [place], [place] [id number] 04/23/2024 10:00 AM EST Infusion Hematology Oncology at [address] [phone] 05/18/2024 4:30 PM EDT TH Visit (TeleHealth) [place] [address] Malachi Rothman MD [facility] [place] [address] 09/24/2024 9:00 AM EDT Office Visit Radiation Oncology at [address] [phone] Ping Moore PA [facility] DR [place] [address] documented as of this encounter Visit Diagnoses Not on filedocumented in this encounter Care Teams Urban Gardening Specialist Relationship Specialty Start Date End Date Tristen Hunter MD [address] [place] [address] [place] [address] PCP - General Family Medicine 07/04/23 documented as of this encounter
--- OUTSIDE RECORDS SUMMARY | 2024-03-26 10:33 | XMS_ITS | Encounter Summary ---
Author Organization [facility] [place] [address] Care Team Providers Care Head Greenskeeper Name Role Phone Tristen Hunter MD Primary Care Provider [phone] Encounter Details Date Type Department Care Team (Late st Contact Info) Description 12/06/2023 Telephone Hematology/Oncology at [address] [phone] [facility] DR [place] [address] Social History Tobacco Use Types Packs/Day Years [...] AM EST Office Visit Hematology/Oncology at [address] [phone] lC Hess MD [facility] [place] [address] [address] HEMATOLOGY AND ONCOLOGY [place], [place] [phone] 04/09/2024 10:00 AM EST Infusion Hematology Oncology at [address] [phone] 04/23/2024 9:30 AM EST Office Visit Hematology/Oncology at [address] [phone] Cl Hess MD [facility] [place] [address] [address] HEMATOLOGY [place] [address] 04/23/2024 10:00 AM EST Infusion Hematology Oncology at [address] [phone] 05/18/2024 4:30 PM EDT TH Visit (TeleHealth) [place] [address] Malachi Rothman MD [facility] [place] [address] 09/24/2024 9:00 AM EDT Office Visit Radiation Oncology at [address] [phone] Ping Moore PA [facility] DR [place] [address] documented as of this encounter Visit Diagnoses Not on filedocumented in this encounter Care Teams Head Greenskeeper Relationship Specialty Start Date End Date Tristen Hunter MD [address] [place] [address] [place] [address] PCP - General Family Medicine 07/04/23 documented as of this encounter
--- OUTSIDE RECORDS SUMMARY | 2024-03-26 10:33 | XMS_ITS | Encounter Summary ---
[place] [address] Care Team Providers Care Glue Mounter Operator Name Role Phone Tristen Hunter MD Primary Care Provider [phone] Reason for Visit * Auth/Cert (Routine) Specialty Diagnoses / Procedures Referred By Contac t Referred To Contact Diagnoses PANCREAS CANCER Procedures PRO PART REMV PANC, PROX+REMV DUOD+ANAST @WHIPPLE PROCEDURE (WRVU 52.84) Tor Balbuena MD [facility] [place] [address] [facility] Referral ID Status Reason Start Date Expiration Date Visits Re quested Visits Authorized [id number] 1 1 Encounter Details Date Type Department Care Team (Late st Contact Info) Description 01/23/2024 7:30 AM EST - 01/23/2024 4:55 PM EST [place] [id number] Tor Balbuena MD [facility] [place] [address] @KAI PROCEDURE (WRVU 21.56) Social History Tobacco Use Types Packs/Day Years Used Date Smoking Tobacco: Former Cigarettes 4 1992 Smokeless Tobacco: Never Alcohol Use Standard Drinks/Week Comments Yes 7 (1 standard drink = 0.6 oz pur e alcohol) [facility] Utilities Answer Date Recorded In the [...] any time in the past 12 m [facility], were you homeless or living in a long term (including now)? No 01/24/2024 DH IPV Inpatient [...] bovine pericardial patch pledgets and internalized 5 Bahraini pancreatic duct stent. The bile duct was quite dilated measuring about 15 mm in an end to side hepaticojejunostomy anastomosis was created. Finally in order to restore intestinal continuity a defect was created in the transverse mesocolon to the left of the middle colic vessels to allow the jejunum to be brought up in his retromesenteric location into the supracolic abdomen where a aqqy-rz-qahl, retrogastric Billroth II type gastrojejunostomy was created. The 19 Bahraini Kd drain was placed into Morison's pouch and then passed posterior to the bile duct anastomosis and then anterior to the pancreatic anastomosis. The omental pedicle flap created from the falciform ligament was used to cover the right gastric artery and GDA stumps. Hospital Course: Wero Sadler was admitted to [facility] on 01/23/2024 via the Same Day Program. [...] - Date/Time Tissue Culture, Aerobic & Anaerobic [[id number]] (Abnormal) Collected: 01/23/241053 Lab Status: Final result Specimen: Tissue from Bile Duct Updated: 01/27/24 1501 Narrative: The following orders were created for panel order Tissue Culture, Aerobic & Anaerobic. Procedure Abnormality Status --------- ------ Tissue Culture, Aerobic ...[[id number]] Final result Anaerobic Culture[[id number]] Abnormal Final result Please view results for these tests on the individual orders. Anaerobic Culture [[id number]] (Abnormal) Collected: 01/23/241053 Lab Status: Final result Specimen: Tissue from Bile Duct Updated: 01/27/24 1501 Anaerobic Culture Rare Bacteroides fragilis group Tissue Culture, Aerobic Only [[id number]] Collected: 01/23/241053 Lab Status: Final result Specimen: [...] Home VNA: Yes HOME HEALTH CARE AGENCY: [facility] [address] [place] [address] Discharge Conditions/Prognosis: Stable Discharge Medications: The following [...] 30 mg Quantity: 30 tablet Refills: 12 nztimh-jnsaayhi-scsaall DR 24,000-76,000 -120,[address] capsule Commonly known as: Creon 24 Take 3 per meal three times daily and 2 per snack three times daily (15 capsules/day) Quantity: 450 capsule Refills: 11 lisinopriL 40 mg tablet Commonly known as: Zestril Take 1 tablet by mouth daily. Lisinopril (hold for SBP <130) 40 mg Refills: 0 omega 1-ukp-dbh-fish oil 250-350-1,000 mg Capsule Take 1,000 mg [...] dye used during vascular procedure at [facility] in [place]: shaking Has tolerated MRI and CT contrast. Pazopanib Other (See Comments) UGT1A1 Poor Metabolizer. See Clinical Pharmacist Note from 07/04/23 for information. Sacituzumab Govitecan-Hziy Other (See Comments) UGT1A1 Poor Metabolizer. See Clinical Pharmacist Note from 07/04/23 for dosing recommendations. Scheduled Appointments: Future Appointments Date Time Provider Department Center 02/07/2024 12:30 PM NURSE, GENERAL SURGERY [facility] SURG [facility] 02/18/2024 12:15 PM LAB, THREE L Lab 3L ISATU SILVERCHLOE 02/18/2024 1:00 PM Tor Balbuena MD [facility] 02/18/2024 2:[address] [facility] 02/20/2024 10:00 AM Cl Hess MD [facility] 03/24/2024 9:00 AM Ping Moore PA [facility] 05/18/2024 4:30 PM Malachi Rothman MD [facility] RAD OFF [facility] Outpatient Services/Studies: CBC (with Diff) Standing Status: [...] the nurses in the Surgery Clinic at [phone]. - During the night time hours call the hospital tufter operator [phone] and ask to speak to the general surgery resident economic development director. Instructions for when you are home: Diet: Ok to eat a carb control diet as tolerated. It is important to try to eat as much calories and protein as possible during recovery to aid in healing. You frequently may feel full easily or evenhave nausea. Take small meals at first and pace yourself. You may supplement your diet with nutritional shakes/drinks (Ensure, Oneco Instant Breakfast, Boost) if possible. Remember to [...] Incision: The skin incision(s) is closed with [place] Usually the jay are removed anywhere from7-14 [...] has been scheduled with Dr. Balbuena's office [phone]. In most cases Dr. Balbuena will order blood work to be done on the day of your post op clinic appointment. This decision is made on a jbww-wo-ouoo basis so ask if this is necessary and plan to come to [facility] pr ior to the appointment to get the blood work done in 3L as instructed. - Of course, if you are being discharged on a weekend and Dr. Balbuena's office is closed then call the office [phone] first thing Saturday. Future Appointments Date Time Provider Department Center 02/07/2024 12:30 PM NURSE, GENERAL SURGERY [facility] 02/18/2024 12:15 PM LAB, THREE L Lab 3L ISATU RITCHIE 02/18/2024 1:00 PM Tor Balbuena MD [facility] SUR[facility] 02/18/2024 2:[address] [facility] 02/20/2024 10:00 AM Cl Hess MD [facility] [place] [facility] 03/24/2024 9:00 AM Ping Moore PA [facility] 05/18/2024 4:30 PM Malachi Rothman MD [facility] RAD OFF [facility] A telephone follow-up visit has been requested with our outpatient ship worker Radha Sweet RD whowill call you to [...] speak with the surgery nurses.The number is [phone]. - During the night call the [facility] tufter operator and ask to speak to the surgery resident economic development director for general surgery. General Instructions Diabetes Discharge [...] 2 tablespoons of dried fruit. Milk and em-epqxw-qzqps yogurt have 15 grams of carbs in a serving. A serving is 1 cup of milk or 3/4 cup (6 oz) of pm-jyktg-dnogx yogurt. Starchy vegetables have 15 grams of carbs in a serving. A serving is ?? cup of mashed potatoes or sweet potato; 1 cup winter squash; ?? of a small baked potato; ?? cup of cooked beans; or ?? cup cooked corn or green peas. Learn how much carbs to eat each day and at each meal. A dietitian or certified personal finance counselor can teach you how to keep track [...] PM NURSE, GENERAL SURGERY General Surgery at [facility] Arrive at: Labor Conciliator Area [phone] 02/18/2024 12:15 PM LAB, THREE L Lab [address] [place] [address] Arrive at: Labor Conciliator Area [phone] 02/18/2024 1:00 PM Tor Balbuena MD General Surgery at [facility] Arrive at: Labor Conciliator Area [phone] 02/18/2024 2:[address] General Surgery at [facility] Arrive at: Labor Conciliator Area [phone] 02/20/2024 10:00 AM Yessi Renee, EDUCATION COURSES SALES REPRESENTATIVE; Cl Hess MD Hematology/Oncology at [facility] Arrive at: [facility] door at end of hallway [phone] 03/24/2024 9:00 AM Ping Moore PA Radiation Oncology at [facility] Arrive at: Home [phone] Please do not come in for this visit. Your provider will call you at the number you provided. 05/18/2024 4:30 PM Malachi Rothman MD Radiation Oncology at [facility] Arrive at: Home [phone] Please do not come in for this visit. Your provider will call you at the number you provided. Future Orders Complete By Expires CBC (with Diff) [UOW859 Custom] 03/01/2024 01/30/2025 Process Instructions: INCLUDES: WBC, RBC, Hgb, Hct, Platelets, RBC Indices and Differential Scheduling Instructions: Comments: Questions: Comprehensive metabolic panel Non-fasting [LAB17 Custom] 03/01/2024 (Approximate) 01/30/2025 Process Instructions: INCLUDES: Calcium, T Protein, Albumin, AST, ALT, Alk Phos, T Bili, BUN, Creat, GFR, Glucose, Lytes. Scheduling Instructions: Comments: Questions: Fasting required?: Non-fasting Magnesium [VXE668 Custom] 03/01/2024 01/30/2025 Process Instructions: Scheduling Instructions: Comments: Questions: Phosphorus [PCY334 Custom] 03/01/2024 01/30/2025 Process Instructions: Scheduling Instructions: Comments: Questions: Prealbumin [KKG894 Custom] 03/01/2024 01/30/2025 Process Instructions: Scheduling Instructions: Comments: Questions: OrthoCare Devices [EQ161 Custom] As directed Process Instructions: Scheduling Instructions: Comments: Wero Mabert [address] [facility] [phone] Telephone Information: Diagnosis: deconditioning with Unsteady gait [...] pancreatic Enzymes/daily PPI CC: Tristen Hunter MD [phone] Signed: Tamia Rodriguez MD [facility] Service Team Pager #[phone] 02/01/2024 7:30 AM For questions regarding this document or issues relating to this hospitalization on the [facility] Surgery Service, please contact Tor Balbuena MD's office at [phone] documented in this encounter Discharge Instructions * Discharge Instructions* eDna Dinh, EDUCATION COURSES SALES REPRESENTATIVE - 01/31/2024 1:52 PM EST Diabetes Discharge [...] 2 tablespoons of dried fruit. Milk and cf-nmhgx-xrkrp yogurt have 15 grams of carbs in a serving. A serving is 1 cup of milk or 3/4 cup (6 oz) of jr-ejbmc-oaups yogurt. Starchy vegetables have 15 grams of carbs in a serving. A serving is ?? cup of mashed potatoes or sweet potato; 1 cup winter squash; ?? of a small baked potato; ?? cup of cooked beans; or ?? cup cooked corn or green peas. Learn how much carbs to eat each day and at each meal. A dietitian or certified personal finance counselor can teach you how to keep track [...] nurses in the 4 Surgery Clinic at [phone]. - During the night time hours call the hospital tufter operator [phone] and ask to speak to the general surgery resident economic development director. Instructions for when you are home: Diet: Ok to eat a carb control diet as tolerated. It is important to try to eat as much calories and protein as possible during recovery to aid in healing. You frequently may feel full easily or evenhave nausea. Take small meals at first and pace yourself. You may supplement your diet with nutritional shakes/drinks (Ensure, Oneco Instant Breakfast, Boost) if possible. Remember to [...] Incision: The skin incision(s) is closed with [place] Usually the jay are removed anywhere from7-14 [...] has been scheduled with Dr. Balbuena's office [phone]. In most cases Dr. Balbuena will order blood work to be done on the day of your post op clinic appointment. This decision is made on a lvsi-zh-mzkf basis so ask if this is necessary and plan to come to [facility] pr ior to the appointment to get the blood work done in 3L as instructed. - Of course, if you are being discharged on a weekend and Dr. Balbuena's office is closed then call the office [phone] first thing Saturday. Future Appointments Date Time Provider Department Center 02/07/2024 12:30 PM NURSE, GENERAL SURGERY [facility] 02/18/2024 12:15 PM LAB, THREE L Lab 3L ISATU SILVERMS 02/18/2024 1:00 PM Tor Balbuena MD [facility] SUR[facility] 02/18/2024 2:[address] [facility] 02/20/2024 10:00 AM Cl Hess MD [facility] 03/24/2024 9:00 AM Ping Moore PA [facility] 05/18/2024 4:30 PM Malachi Rothman MD [facility] RAD OFF [facility] A telephone follow-up visit has been requested with our outpatient ship worker Radha Sweet RD whowill call you to [...] speak with the surgery nurses.The number is [phone]. - During the night call the [facility] tufter operator and ask to speak to the surgery resident economic development director for general surgery. documented in this encounter Medications at Time of Discharge Medication Sig Dispensed Refills Start Date End Date ycydua-doclxvkd-tyr lase DR (Creon 24) 24,000-76,000 -120,000 unit [...] mg by mouth as needed. 05/20/2023 omega 6-upn-byk-fish oil 250-350-1,000 mg Capsule Take 1,000 mg [...] treatment team, confirmed ride with [facility] for poultry picking machine tender at the main entrance at noon today. Abby Melgoza PhD, [facility] Pager [phone] * Dena Dinh APRN - 01/31/2024 8:15 [...] 2 tablespoons of dried fruit. Milk and ka-kbijd-cdkxs yogurt have 15 grams of carbs in a serving. A serving is 1 cup of milk or 3/4 cup (6 oz) of ud-jldbq-tteow yogurt. Starchy vegetables have 15 grams of carbs in a serving. A serving is ?? cup of mashed potatoes or sweet potato; 1 cup winter squash; ?? of a small baked potato; ?? cup of cooked beans; or ?? cup cooked corn or green peas. Learn how much carbs to eat each day and at each meal. A dietitian or certified personal finance counselor can teach you how to keep track [...] cheese, and peanut butter. Dena Dinh APRN [facility] Endocrinology Diabetes Management Pager [phone] Weekends please page [phone] 50 minutes were spent over the course [...] [facility] Surgery Service Team Pager #[phone] 01/31/24 8:07 AM * Earl Reina - 01/30/2024 2:21 PM EST Nursing Aide Encounter Note Patient Name: Wero Sadler : [id number] MR#: [id number] Admit Date: 01/23/2024 6:12 AM Hospital Day 7 days Narrative:Visited to introduce and assess acceptance of Nursing Aide services. Assessment: Patient was awake, alert, oriented and in bed. Patient coping positively with stresses of illness/hospitalization at this time. Patient says that he is hoping to get better and seems to be thankful and taking one day at time. Intervention and Outcome:Provided emotional, spiritual support and listening presence. Nursing Aide services accepted. Conversation to build trusting relationship. [...] (per initial PT evaluation) lives alone in [place], [place]; has friends that grocery shop for him and prepare meals; also receives Xgsul-mz-Dvgcys; uses [facility] for transportation as needed; patient [...] (P) TE-Fx1 Nimisha Mahoney, PT/DPT, CNT Pager: [phone] Physical Therapy Inpatient Rehabilitation Department * Wilton Moore MD - 01/30/2024 7:35 AM EST [facility] Surgery Inpatient Progress Note Patient Name: Wero Sadler ; Age: 11 1950; 74 y.o. Room/Bed: [address] [place] [address] Today's Date: 01/30/24 ID: Wero Sadler is [...] [facility] Surgery Service Team Pager #[phone] 01/30/24 7:35 AM * Samra Moss, PT - 01/29/2024 12:10 PM EST Physical Therapy Note Treatment Number PT: 3 Patient profile: Per MD note: Wero Sadler is a 74 y.o. male with PMH of colon cancer ([id number]), prostate cancer (s/p androgen deprivation and RT), [...] (per initial PT evaluation) lives alone in [place], [place]; has friends that grocery shop for him and prepare meals; also receives Xcpfd-gt-Ojivxu; uses [facility] for transportation as needed; patient [...] Moss PT, Doctor of Physical Therapy Pager: [phone] Physical Therapy Inpatient Rehabilitation Department * Heavenly [...] sign off at this time. Please page [phone] with any epidural-related questions or concerns. NACHO Jonas RN, have performed the documentation for this encounter in the presence of andacting as a scribe for Dr. Adam Muñoz. Anesthesia Staff Patient seen and examined on daily rounds. I agree with the above assessment and plan Adam Pakrer. MD Toni [phone] APMS Nurse: Nacho Lou RN Attending Physician:: Adam Muñoz MD * Wilton Moore MD - 01/29/2024 6:39 AM EST [facility] Surgery Inpatient Progress Note Patient Name: Wero PATEL; Age: 11 1950; 74 y.o. Room/Bed: [facility]-A Today's Date: 01/29/24 ID: Wero Sadler is [...] [facility] Biliary Surgery Service Team Pager #[phone] 01/29/24 8:39 AM * Nina Tipton RN [...] Age: 11 1950; 74 y.o. Room/Bed: [facility] Today's Date: 01/28/24 ID: Wero Sadler is [...] [facility] Surgery Service Team Pager #[phone] 01/28/24 9:34 AM Heavenly Cabello, EDUCATION COURSES SALES REPRESENTATIVE - 01/28/2024 9:23 AM ESTSummary: He is [...] with provider CASA Dominguez - Surg Onc 5015 . Objective [...] unit including nursing and primary team. * Sites, Adam Parker MD - 01/28/2024 9:20 AM [...] his NG tube is still in place. eWro denies any nausea at this time and [...] assessment and plan. Adam Muñoz MD [address] [facility] Nurse: Nacho Lou RN Fellow:: Kolton Morejon DO Attending Physician:: Adam Muñoz MD * Verenice Pérez RN - 01/27/2024 4:24 PM EST OUTCOME EVALUATION NOTE: OUTCOME SUMMARY: Pt AxOX4, VSS except one high BP prn labetalol given See HARESH, NSR with frequent PVCs on tele, complains [...] with hyaluronidase Social History: lives alone in [place], [place]; has friends that grocery shop for him and prepare meals; also receives Mofdg-tz-Haledy; uses [facility] for transportation as needed; patient [...] all needs in reach (paddle call mcdonnell, DOOR ATTENDANT, phone) following visit. Assessment: Weroyancy Sadler was seen today for physical therapy treatment session for continuation of POC. Mauri demonstrated improvement in transfers and gait and was able to initiate stair management today, using a footstool next to his bed. He tolerated all activity well and did not need to use his DOOR ATTENDANT during this session. 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 The epidural insertion site is clean, and [...] as a scribe for Dr. Manolo Gamboa. AP[facility] Nurse: Zuleima Aguirre RN Fellow:: Kolton Morejon DO Attending Physician:: Manolo Meza MD I performed the above scribed service and agree with the accuracy of the note. Manolo Meza MD * Tor Balbuena MD - 01/27/2024 7:00 AM EST [facility] Surgery Inpatient Progress Note Patient Name: Wero Sadler ; Age: 11 1950; 74 y.o. Room/Bed: [facility]/83-A Today's Date: 01/27/24 ID: Wero Sadler is [...] [facility] Surgery Service Team Pager #[phone] 01/27/24 5:48 AM HPB surgery attending addendum [...] rate Attending Physician:: Manolo Meza MD * Udya Gomes MD - 2024 8:12 AM EST [facility] Surgery Inpatient Progress Note Patient Name: Wero PATEL; Age: 11 1950; 74 y.o. Room/Bed: [facility] Today's Date: 01/26/24 ID: Wero Sadler is [...] to suction. If less than 200cc, page [phone] to discuss NGT removal and advancement to [...] [facility] Surgery Service Team Pager #[phone] 01/26/24 8:12 AM * Nafisa Wu RN [...] off going RN. Special call light, and DOOR ATTENDANT button in place within reach. Fall precautions, [...] Attending Physician:: Manolo Meza MD * Uday Goems MD - 01/25/2024 8:08 AM EST [facility] Surgery Inpatient Progress Note Patient Name: Wero PATEL; Age: 11 1950; 73 y.o. Room/Bed: [address] Today's Date: 01/25/24 ID: Wero Sadler [...] [facility] Biliary Surgery Service Team Pager #[phone] 01/25/24 8:08 AM * Abby Cannon, PT [...] Claudication Colon adenocarcinoma 2008 recieved chemo in [place] Coronary artery disease Coronary artery dissection CPAP [...] 0.3) performed by Tor Balbuena MD at [facility] OSC PRO ARTHROPLASTY ACETABULAR/PROX FEM PROSTC AGRFT/ALGRFT Left 10/10/2020 TOTAL HIP ARTHROPLASTY - POSTERIOR (WRVU 20.72) performed by Ismael Wu MD at [facility] MAIN OR PRO ARTHROPLASTY ACETABULAR/PROX FEM PROSTC AGRFT/ALGRFT Right 11/17/2021 TOTAL HIP ARTHROPLASTY - POSTERIOR (WRVU 20.72) performed by Ismael Wu MD at [facility] MAIN OR PRO ENDOSCOPIC US EXAM, ESOPH N/A 07/02/2023 UPPER EUS- ENDOSCOPIC ULTRASOUND (WRVU 3.47) performed by Pako Lopez MD at [facility] ENDOSCOPY PRO ERCP, W/REMOVAL STONE, TARYN/PANCR DUCTS 07/02/2023 ERCP W/REMOVAL CALCULI/DEBRIS FROM BILARY/PANCREATIC DUCT(S) (WRVU 6.63) performed by Pako Lopez MD at [facility] ENDOSCOPY PRO ERCP,DIAGNOSTIC N/A 07/02/2023 ERCP (WRVU 5.85) performed by Pako Lopez MD at [facility] ENDOSCOPY PRO EXPLORATION NOT FOLLOWED BY SURG NECK ARTERY Right 07/14/2021 @EXPLORATION NOT FOLLOWED BY SURGICAL REPAIR, ARTERY; NECK (CAROTID OR SUBCLAVIAN) (WRVU 9.19) performed by Basim Barr MD at [facility] MAIN OR PRO INSERT TUNNELED CV CATH W SUBQ PORT, AGE 5 YRS OR OLDER N/A 07/05/2023 MARIO\AMELIA.CATHETER,TUNNELED, WITH SQ PORT OR PUMP OVER 5YR (WRVU 5.79) performed by Maggi Balbuena MD at [facility] OSC PRO LAP, DIAGNOSTIC ABDOMEN N/A 07/05/2023 LAPAROSCOPY, DIAGNOSTIC, ABDOMEN (WRVU 5.14) performed by Tor Balbuena MD at [facility] OSC PRO LASER VAPORIZATION SURGERY PROSTATE, COMPLETE Midline 02/02/2021 CYSTO, LASER TURP (WRVU 12.15) performed by Cayetano Engle MD at [facility] MAIN OR PRO PLACE TRANSCATHETER STENT, CCA W EMBOLIC PROECT Right 07/14/2021 @TRANSCATH INTRAVASCULAR STENT,CAROTID,PERC,W\EMBOLIC PROT. (WRVU 18) performed by Basim Barr MD at [facility] MAIN OR Active Non-Hospital Problems [...] blood pressurses Social History: lives alone in [place], [place]; has friends that grocery shop for him and prepare meals; also receives Hwzig-nl-Qbqswe; uses [facility] for transportation as needed; patient [...] 35 minutes; evaluation ABBY CANNON, PT Pager: [phone] Physical Therapy Inpatient Rehabilitation Department * Haroon Presley PA - 01/24/2024 10:50 AM EST [facility] Surgery Inpatient Progress Note Patient Name: Wero Sadler ; Age: 11 1950; 73 y.o. Room/Bed: [address] Today's Date: 01/24/24 ID: Wero Sadler [...] will maintain NGT to LCWS for today. Wreo has h/o IDDM - will consult the [...] [facility] Surgery Service Team Pager #[phone] 01/24/24 10:51 AM * Manolo Meza MD [...] bed for the first time. I, NACHO E DENILSON, RN, have performed the documentation for this encounter in the presence of andacting as a scribe for Dr. Manolo Meza. AP[facility] Nurse: Nacho Lou RN Resident:: Jace Lyons MD Fellow:: Kolton Morejon DO Attending Physician:: Manolo Meza MD I performed the above scribed service and agree with the accuracy of the note. Manolo Meza MD * Dione Sharma RN - 01/24/2024 6:41 AM EST Pt states he has a advance directive and his DPOA is his daughter Yessi. Yesis is not currently listed in his chart. [...] bpm] I/O last 3 completed shifts: In: 29692.3 [I.V.:9028.8; Blood:987; Other:1035.5] Out: 3759 [Urine:1304; Drains:205; [...] 65 - 199 mg/dL Type and screen ([facility]/CGP/NATO) Result Value Ref Range ABORH Type O POSITIVE PATIENT HISTORY Found Expires at 2359 on: 2024 ANTIBODY SCREEN AUTOMATED Negative T&S only valid at [facility] ABORH RECHECK (PATIENT HISTORY FOUND) Result [...] Information Issued Product Identification RBC Unit Number [id number] Product Code [id number] Unit Blood Type OPOS Specimen Expiration Date [id number] Volulme 350 Issue Date / Time [id number] Status Information Issued Product Identification RBC Unit Number [id number] Product Code [id number] Unit Blood Type OPOS Specimen Expiration Date [id number] Volulme 350 Issue Date / Time Blood [...] Information Issued Product Identification RBC Unit Number [id number] Product Code [id number] Unit Blood Type OPOS Specimen Expiration Date Volulme 287 Issue Date / Time Status Information Returned Product Identification RBC Unit Number [id number] Product Code [id number] Unit Blood Type OPOS Specimen Expiration Date [id number] Volulme 350 Issue Date / Time POC, [...] of pancreatic head adenocarcinoma who presents to [facility] for whipple S: Wero Sadler endorses no [...] Uday Gomes MD 01/23/2024 General Surgery p. 3576 HPB surgery attending addendum I saw Wero [...] information for follow-up [facility]na & Hospice, Zeinab Newby [facility] [address] Transportation: health plan transportation *RCT Functional status prior to admission: Independent Home Environment: Others in the home: alone. Current Living Arrangements: home/apartment/condo. Accessibility Concerns:1 CLARIBEL. 2 levels. can stay on 1 if need to. Current Functional Ability: DME used at home: none DME Needed at Discharge: FWW- delivered by [employer] Patient is insured through: Primary Insurance: MEDICARE [...] DO & walker brought to patient by [employer] Discharge instructions gone over with patient - [...] vargas Shante - 01/31/2024 3:22 PM ESTSummary: katherine ride tentatively set for Saturday at 12 noon w. 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 PLEASE call for 8 am tomorrow to confirm patient is still a go for dc and ride is needed, No ride will come if not confirmed. Pt going to [facility] [address] in [facility]. Ride set [...] Nurse, Physical Therapy, Occupational Therapy Agency Referrals: [facility] [address] [place] [address] Transportation: health plan transportation *RCT Barriers to discharge: Global: Denies needs/concerns at this time Plan: Patient is not medically ready related to: RBC transfusion for low Hgb. Plan going forward is: plan to discharge home tomorrow, patient will need RCT ride set up. Anticipated Date of Discharge: 02/01/2024 Patricia Ramirez, RN, MSN, [facility] Surgery Nurse Base Ply Hand [phone] , Pager [phone] * Consult Note - Jeane Rooney, RD [...] 01/28/2024 1800 01/27/2024 1800 Adult TPN (Custom) [[id number]] Adult TPN (Custom) [[id number]] Adult TPN (Custom) [[id number]] Order Status Discontinued Completed Completed Last Admin New Bag at 01/30/20241803 by Bruno Frey, AYE Rate/Dose Verify at 01/28/20242054 by Nina Tipton [...] comments) 07/05/23 1440 -- 210 Drain/Device Site 01/29/24 1923 Right lower flank other (see comments) 01/29/24 1923 -- 2 Oxygen Therapy / Airway [...] of this encounter: 87.5 kg (193 lb). [place] Body Weight (IBW) (kg): 72.73 Wt Readings [...] He enjoys foods such as breakfast sandwiches (turkish muffin, sausage, egg, cheese, butter) and items [...] maxillary line): Not assessed Lean Muscle Loss Bahai region (temporalis muscle): None present Clavicle bone [...] 01/28/2024 1800 01/27/2024 1800 Adult TPN (Custom) [[id number]] Adult TPN (Custom) [[id number]] Adult TPN (Custom) [[id number]] Order Status Active Last Dose in Progress [...] time Site Days Naso/Oral Tube 01/23/24 1545 [place] sump left nostril 01/23/24 1545 left nostril [...] of this encounter: 95.3 kg (210 lb). [place] Body Weight (IBW) (kg): 72.73 Wt Readings [...] He enjoys foods such as breakfast sandwiches (turkish muffin, sausage, egg, cheese, butter) and items [...] maxillary line): Not assessed Lean Muscle Loss Bahai region (temporalis muscle): None present Clavicle bone [...] Implemented as Appropriate) * Initial Assessments - Calvary, Savannah G, OT - 01/28/2024 11:40 AM EST Occupational [...] Claudication Colon adenocarcinoma 2008 recieved chemo in [place] Coronary artery disease Coronary artery dissection CPAP [...] PRG FLUOROSCOPY EXAM UP TO 1 HR [facility] OR OT HLTH CARE PROV N/A 07/05/2023 FLUOROSCOPY (WRVU 0.3) performed by Tor Balbuena MD at [facility] OSC PRO ARTHROPLASTY ACETABULAR/PROX FEM PROSTC AGRFT/ALGRFT Left 10/10/2020 TOTAL HIP ARTHROPLASTY - POSTERIOR (WRVU 20.72) performed by Ismael Wu MD at [facility] MAIN OR PRO ARTHROPLASTY ACETABULAR/PROX FEM PROSTC AGRFT/ALGRFT Right 11/17/2021 TOTAL HIP ARTHROPLASTY - POSTERIOR (WRVU 20.72) performed by Ismael Wu MD at [facility] MAIN OR PRO ENDOSCOPIC US EXAM, ESOPH N/A 07/02/2023 UPPER EUS- ENDOSCOPIC ULTRASOUND (WRVU 3.47) performed by Pako Lopez MD at [facility] ENDOSCOPY PRO ERCP, W/REMOVAL STONE, TARYN/PANCR DUCTS 07/02/2023 ERCP W/REMOVAL CALCULI/DEBRIS FROM BILARY/PANCREATIC DUCT(S) (WRVU 6.63) performed by Pako Lopez MD at [facility] ENDOSCOPY PRO ERCP,DIAGNOSTIC N/A 07/02/2023 ERCP (WRVU 5.85) performed by Pako Lopez MD at [facility] ENDOSCOPY PRO EXPLORATION NOT FOLLOWED BY SURG NECK ARTERY Right 07/14/2021 @EXPLORATION NOT FOLLOWED BY SURGICAL REPAIR, ARTERY; NECK (CAROTID OR SUBCLAVIAN) (WRVU 9.19) performed by Basim Barr MD at [facility] MAIN OR PRO INSERT TUNNELED CV CATH W SUBQ PORT, AGE 3 YRS OR OLDER N/A 07/05/2023 MARIO\AMELIA.CATHETER,TUNNELED, WITH SQ PORT OR PUMP OVER 5YR (WRVU 5.79) performed by Maggi Balbuena MD at [facility] OSC PRO LAP, DIAGNOSTIC ABDOMEN N/A 07/05/2023 LAPAROSCOPY, DIAGNOSTIC, ABDOMEN (WRVU 5.14) performed by Tor Balbuena MD at [facility] OSC PRO LASER VAPORIZATION SURGERY PROSTATE, COMPLETE Midline 02/02/2021 CYSTO, LASER TURP (WRVU 12.15) performed by Cayetano Engle MD at [facility] MAIN OR PRO OMENTAL FLAP, INTRA-ABDOMINAL 01/23/2024 @OMENTAL FLAP, INTRA-ABDOMINAL (WRVU 6.54) performed by Tor Balbuena MD at [facility] MAIN OR PRO PART REMV PANC, PROX+REMV DUOD+ANAST N/A 01/23/2024 @WHIPPLE PROCEDURE (WRVU 52.84) performed by Tor Balbuena MD at [facility] MAIN OR PRO PLACE TRANSCATHETER STENT, CCA W EMBOLIC PROECT Right 07/14/2021 @TRANSCATH INTRAVASCULAR STENT,CAROTID,PERC,W\EMBOLIC PROT. (WRVU 18) performed by Basim Barr MD at [facility] MAIN OR PRO UNLISTED PROCEDURE VASCULAR SURGERY 01/23/2024 PORTAL VEIN REPAIR (WRVU 13.24) performed by Tor Balbuena MD at [facility] MAIN OR Subjective: Pt received [...] abdmininal incision, abdominal precautions, legally blind. Krause, DOOR ATTENDANT, sips and chips, NGT to suction, Patient [...] 0750 -- 5 Naso/Oral Tube 01/23/24 1545 [place] sump left nostril 01/23/24 1545 left nostril [...] LLE sock Functional Mobility: Sit to stand: [facility] Ambulation: 20'x2 [facility] RW Hospital bed Transfer: SBA RW stand [...] 2-3 times/wk Total Minutes, Occupational Therapy: 30 ([phone]) Planned OT interventions: Role of occupational therapy/rehabilitation, [...] They/Them Occupational Therapy Rehabilitation Department Pager # [phone] * Consult Note - Casandra Briseno RD [...] 01/28/2024 1800 01/27/2024 1800 Adult TPN (Custom) [[id number]] Adult TPN (Custom) [[id number]] Order Status Active Last Dose in Progress [...] time Site Days Naso/Oral Tube 01/23/24 1545 [place] sump left nostril 01/23/24 1545 left nostril [...] of this encounter: 95.3 kg (210 lb). [place] Body Weight (IBW) (kg): 72.73 Wt Readings [...] He enjoys foods such as breakfast sandwiches (turkish muffin, sausage, egg, cheese, butter) and items [...] maxillary line): Not assessed Lean Muscle Loss Bahai region (temporalis muscle): None present Clavicle bone region (pectoralis major): None present Dorsal hand (interosseous muscle): None present Shoulder (deltoid): None present Scapular bone region (latissimus dorsi, trapezius muscles): Not assessed Thigh region (quadriceps muscle): None present Posterior calf region (gastrocnemius muscle): None present Fluid Accumulation Fluid Accumulation: Not assessed Malnutrition Diagnosis: Not identified (Nnamdi, HEATHEREN J Parenteral Enteral Nutr. 2011; 36(3): 273-83) Nutrition to continue to follow up while inpatient NATHAN Mitchellally signed by Casandra Briseno RD at 01/28/2024 11:55 AM EST * Plan of Care - Nina Tipton [...] 197/71 1x 20mg IV labetalol provided, see MAY. 2019: BP recheck 161/62. 2029: Temp resolving, [...] home health with to be determined (01/24/24 0375) Plan for discharge is: Home w/ Services Outpatient Agency/Support Group Needs: None Home Health Services: Registered Nurse, Physical Therapy, Occupational Therapy Agency Referrals: [facility] [address] [place] [address] Transportation: health plan transportation *RCT Barriers to discharge: Global: Denies needs/concerns at this time Plan: Patient is not medically ready related to: s/p whipple. Failed NGT clamp trial yesterday, starting TPN, waiting for ROBF, monitor for HEATHER drain output. Plan going forward is: likely home with VNA when med ready. Anticipated Date of Discharge: 01/29/2024 Fabian Kang STONE GRADER crown wheel assembler [phone] * Consult Note - Soniya Novoa RD [...] and time 01/27/2024 1800 Adult TPN (Custom) [[id number]] Order Status Active Frequency Continuous (TPN) Medications [...] time Site Days Naso/Oral Tube 01/23/24 1545 [place] sump left nostril 01/23/24 1545 left nostril [...] of this encounter: 95.3 kg (210 lb). [place] Body Weight (IBW) (kg): 72.73 Wt Readings [...] He enjoys foods such as breakfast sandwiches (turkish muffin, sausage, egg, cheese, butter) and items [...] maxillary line): Not assessed Lean Muscle Loss Bahai region (temporalis muscle): None present Clavicle bone region (pectoralis major): None present Dorsal hand (interosseous muscle): None present Shoulder (deltoid): None present Scapular bone region (latissimus dorsi, trapezius muscles): Not assessed Thigh region (quadriceps muscle): None present Posterior calf region (gastrocnemius muscle): None present Fluid Accumulation Fluid Accumulation: Not assessed Malnutrition Diagnosis: Not identified (LANDON Coto J Parenteral Enteral Nutr. 2012 July; 36(3): 273-83) Nutrition to continue to follow [...] of MD contacted MD Moore 01/26 @ 3360 INVESTOR RELATIONS MANAGER CARING FOR THIS PATIENT WILL CONTINUE [...] Note Social Work Response to Consult Consult: Conditioner Tumbler responded to consult regarding need for Advanced Directive Social Work Response: Conditioner Tumbler visited patient while he was in the ISCU. Patient was friendly and welcoming. Patient also stated that was resting comfortably. Conditioner Tumbler asked patient if he had an AD and explained the difference between that and personal representation; [facility] has [place] documentation, but no AD on file. However, patient confirmed he has an AD, but did state it was his brother who was his POA. His daughter, Yessi Olivera ([phone]) is noted as being POA. It is uncertain if there are more than one healthcare POAs. Conditioner Tumbler left with Yessi to confirm. Conditioner Tumbler left his phone # with her. Follow Up Needed: OCCUPATIONAL THERAPY PROFESSOR to follow up on POA status. MAXI Bello Snow Plow Tractor Operator, Camp Maintenance Supervisor Office of Care Management * Plan of [...] Claudication Colon adenocarcinoma 2009 recieved chemo in [place] Coronary artery disease Coronary artery dissection CPAP [...] Who is your DPOA-HC?: Child (Yessi Olivera [phone]) Current Coping/Education/Information Needs: coping well Current Functional [...] or living in a long term (including now)?: No In the past 12 months has the electric, gas, oil, or water company threatened [...] Current DME: none Home Address confirmed as: [address] [place] [id number] Social & Family Supports: All names listed [...] Yes ; Prescription Coverage: Yes Preferred Pharmacy: [id number] - [facility] [address] AT [facility] [address] [address] [facility] [address] [facility] [facility] [address] [facility] [facility] [address] [facility] [address] [id number] - [address] [place] [address] [address] [facility] [address] [facility] [address] [place] [address] [address] [facility] [address] [facility] [address] [facility] Home Delivery - [place], [place] - [address] [facility] [address] [facility] [address] Status: Patient is a : No Primary Care Provider confirmed: Tristen Hunter MD [phone] Patient/Caregiver Goals of Treatment: home with VNA Potential Needs for Transition of Care: home health care Agency Referrals: The patient has been provided a list of Home Health Agencies/DME vendors which serve their preferred geographic area. A letter describing our affiliations was reviewed with them and they were educated about their right to choose where referrals are placed. Provided patient with [facility] Star Quality Rating handout. They have requested referrals to: [facility] [address] [place] [address] Expected date of discharge: 01/31/2024 Referral routed to the Tub Puller for matching with agency/vendor and to provide [...] coordination of care as indicated. Fabian Kang STONE GRADER crown wheel assembler [phone] * Consult Note - Heavenly Martinez APRN [...] is: Breakfast- Cornbeef hash couple eggs Lunch- [place] Supper- Meal on wheels. Typical exercise regimen [...] Claudication Colon adenocarcinoma 2009 recieved chemo in [place] Coronary artery disease Coronary artery dissection CPAP [...] dye used during vascular procedure at [facility] in [place]: shaking Has tolerated MRI [...] Martinez APRN Endocrinology Diabetes Management Service Pager: [phone] Weekends please page endocrine economic development director 70 minutes of this 80 minute visit [...] Operative Note Patient Name: Wero Sadler : [id number] MR#: [id number] Case Date: 01/23/2024 Surgeon: Surgeons and Role: * Tor Balbuena MD - Primary * Uday Gomes MD - Resident - Assisting * Joe Espinosa MD - Assisting Attending Preoperative diagnosis: PANCREAS CANCER Postoperative diagnosis: PANCREAS CANCER Procedure(s) (LRB): @WHIPPLE PROCEDURE (WRVU 52.84) (N/A) PORTAL VEIN REPAIR (WRVU 13.24) @OMENTAL FLAP, INTRA-ABDOMINAL (WRVU 6.54) Modifiers: 80: Technical Product Manager surgeon Anesthesia: General Findings: - No evidence [...] : Blood Blood, Venous TYPE AND SCREEN ([facility]) Tor Balbuena MD 01/23/2024 0851 B : [...] Balbuena MD - 01/23/2024 8:41 AM EST [facility] Operative Note Patient Name: Wero Sadler : [id number] MR#: [id number] Case Date: 01/23/2024 Surgeon: Surgeons and Role: * Tor Balbuena MD - Primary * Uday Gomes MD - Resident - Assisting * Joe Espinosa MD - Assisting Attending Preoperative diagnosis: PANCREAS CANCER Postoperative diagnosis: PANCREAS CANCER Procedure(s) (LRB): @WHIPPLE PROCEDURE (WRVU 52.84) (N/A) PORTAL VEIN REPAIR (WRVU 13.24) @OMENTAL FLAP, INTRA-ABDOMINAL (WRVU 6.54) Modifiers: 80: Technical Product Manager surgeon Findings: No evidence for metastatic disease. [...] bovine pericardial patch pledgets and internalized 5 Bahraini pancreatic duct stent. The bile duct was quite dilated measuring about 15 mm in an end to side hepaticojejunostomy anastomosis was created. Finally in order to restore intestinal continuity a defect was created in the transverse mesocolon to the left of the middle colic vessels to allow the jejunum to be brought up in his retromesenteric location into the supracolic abdomen where a mdpy-fu-iqcb, retrogastric Billroth II type gastrojejunostomy was created. The 19 Bahraini Kd drain was placed into Morison's pouch [...] : Blood Blood, Venous TYPE AND SCREEN ([facility]/P/NATO) Tor Balbuena MD 01/23/2024 0851 B : [...] pursuant to and in compliance with the [facility] operative policies. His abdomen and lower chest [...] blade. There was pulsatile bleeding from the ilvzxhj-ru-gsgv of the pancreas. Hemostasis was obtained with [...] the posterior outer layer. Next a pancreaticojejunostomy dzyq-uy-lbfonx anastomosis was created. A small enterotomy was [...] to placing the surgical drain. A 19 Bahraini Kd closed suction drain was placed through a separate stab incision in the right lateral abdomen and positioned to lie in the most dependent portion of the abdomen along the right colic gutter/Morison's pouch lateral to the liver and above gerotas fascia. The foregut reconstruction was a retrocolic onkk-uu-pvms, Billroth II type, gastrojejunostomy anastomosis. A defect was created in the transverse mesocolon to the left and middle colic vessels to allow the jejunum to be brought up as a loop to perform a retrogastric pkhp-an-ztyf gastrojejunostomy anastomosis. This was accomplished with the [...] in the portal transection bed. The 19 Bahraini Kd drain was then passed beneath the [...] type gastrojejunostomy HEATHER drain placement location: 19 Bahraini Kd drain positioned in Morison's pouch, posterior [...] AM EST Office Visit Hematology/Oncology at [address] [address] Cl Hess MD [facility] [address] [address] HEMATOLOGY AND ONCOLOGY [place], [place] [address] 04/09/2024 10:00 AM EST Infusion Hematology Oncology at [address] [address] 04/23/2024 9:30 AM EST Office Visit Hematology/Oncology at [address] [address] Cl Hess MD [facility] [address] [address] [place] [address] 04/23/2024 10:00 AM EST Infusion Hematology Oncology at [address] [address] 05/18/2024 4:30 PM EDT TH Visit (TeleHealth) [place] [address] Malachi Rothman MD [facility] RADIATION [place]COLOG[place] [address] 09/24/2024 9:00 AM EDT Office Visit Radiation Oncology at [address] [address] Ping Moore PA [facility] HEMATOLOGY [place] [address] Scheduled Orders Name Type Priority Associated Diagnoses [...] Routine 8:28 AM EST Omental Flap, Intra-Abdominal ([id number]) 01/23/2024 7:52 AM EST PANCREAS CANCER Unlisted Procedure Vascular Surgery ([id number]) 01/23/2024 7:52 AM EST PANCREAS CANCER Part Remv Panc, Prox+Remv Duod+Anast ([id number]) 01/23/2024 7:52 AM EST PANCREAS CANCER XR [...] - 199 mg/dL 02/01/2024 8:02 AM EST [facility] Comment:Supplemental ranges: <140 mg/dL before meals <180 mg/dL all other times of the day. Blood CAPILLARY BLOOD / Unknown 02/01/2024 8:02 AM EST 02/01/2024 8:03 AM EST Tor Balbuena MD POINT OF CARE TEST ORDERABLES [facility] [place] [address] * POC, GLUCOSE (02/01/2024 4:18 AM EST) Glucometer, POC 149 65 - 199 mg/dL 02/01/2024 4:19 AM EST [facility] Comment:Supplemental ranges: <140 mg/dL before meals <180 mg/dL all other times of the day. Blood CAPILLARY BLOOD / Unknown 02/01/2024 4:18 AM EST 02/01/2024 4:19 AM EST Tor Balbuena MD POINT OF CARE TEST ORDERABLES Performing Organization Address City/[facility]/ZIP Co de Phone Number [facility] [place] [address] * Magnesium (02/01/2024 4:17 AM EST) Magnesium 0.98 0.69 - 1.07 mMol/L 02/01/2024 4:58 AM EST [facility] Blood VENOUS BLOOD SPECIMEN / Unknown Venipuncture / Unknown 02/01/2024 4:17 AM EST 02/01/2024 4:28 AM EST Tor Balbuena MD CHEMISTRY ORDERABL ES Performing Organization Address [facility] Co de Phone Number [facility] [place] [address] * Phosphorus (02/01/2024 4:17 AM EST) Phosphorus 3.8 2.5 - 4.5 mg/dL 02/01/2024 4:58 AM EST [facility] Blood VENOUS BLOOD SPECIMEN / Unknown Venipuncture / Unknown 02/01/2024 4:17 AM EST 02/01/2024 4:28 AM EST Tor Balbuena MD CHEMISTRY ORDERABL ES Performing Organization Address City/[facility]/ZIP Co de Phone Number [facility] [place] [address] * (ABNORMAL) Comprehensive metabolic panel (02/01/2024 4:17 AM EST) Glucose 151 65 - 199 mg/dL 02/01/2024 4:58 AM EST [facility] Comment:Glucose Concentratio n >=200 mg/dL plus symptoms is consistent with Diabetes Mellitus. Blood Urea Nitrogen 20 10 - 20 mg/dL 02/01/2024 4:58 AM EST [facility] Creatinine 0.71(L) 0.80 [...] 40 - 130 unit/L 02/01/2024 4:58 AM [facility] Bilirubin, Total 1.1 <=1.3 mg/dL 02/01/2024 4:58 AM [facility] Est Glomerular Filtration Rate - Male 95 mL/min/1. 73 m?? 02/01/2024 4:58 AM [facility] Comment: [...] EST Tor Balbuena MD CHEMISTRY ORDERABL ES [facility] [place] [address] * (ABNORMAL) CBC (with Diff) (02/01/2024 4:17 AM EST) White Blood Cell 6.27 4.00 - 9.50 x10(3)/mc L 02/01/2024 4:35 AM [facility] Red Blood Cell 2.98(L) 4.58 - 5.54 x10(6)/mc L 02/01/2024 4:35 AM [facility] Hemoglobin 9.2(L) 13.7 - 16.5 g/dL 02/01/2024 4:35 AM [facility] Hematocrit 27.5(L) 40.5 - [...] - 0.90 x10(3)/mc L 02/01/2024 4:35 AM [facility] Eos % 4.8 % 02/01/2024 4:35 AM [facility] Eos Absolute 0.30 0.00 - 0.40 x10(3)/mc L 02/01/2024 4:35 AM [facility] Basophil [...] MD HEMATOLOGY ORDERAB LES Performing Organization Address City/[facility]/ZIP Co de Phone Number [facility] [place] [address] * POC, GLUCOSE (02/01/2024 12:12 AM EST) Glucometer, POC 138 65 - 199 mg/dL 02/01/2024 12:13 AM EST [facility] Comment:Supplemental ranges: <140 mg/dL before meals <180 mg/dL all other times of the day. Blood CAPILLARY BLOOD / Unknown 02/01/2024 12:12 AM EST 02/01/2024 12:13 AM EST Tor Balbuena MD POINT OF CARE TEST ORDERABLES Performing Organization Address [facility] Co de Phone Number [facility] [place] [address] * Prepare RBC (01/31/2024 11:07 PM EST) Status Information Transfused [facility] Product Identification RBC [facility] Unit Number [id number] [facility] Product Code [id number] [facility] Unit Blood Type OPOS [facility] Specimen Expiration Date [facility] Volulme 286 [facility] Issue Date / Time [id number] [facility] Blood 01/31/2024 8:1 0 AM EST Tor Balbuena MD BLOOD BANK PRODUCT ORDERABLES [facility] [place] [address] * POC, GLUCOSE (01/31/2024 10:14 PM EST) Glucometer, POC 136 65 - 199 mg/dL 01/31/2024 10:15 PM EST [facility] Comment:Supplemental ranges: <140 mg/dL before meals <180 mg/dL all other times of the day. Blood CAPILLARY BLOOD / Unknown 01/31/2024 10:14 PM EST 01/31/2024 10:15 PM EST Tor Balbuena MD POINT OF CARE TEST ORDERABLES [facility] [place] [address] * (ABNORMAL) POC, GLUCOSE (01/31/2024 8:04 PM EST) Glucometer, POC 265(H) 65 - 199 mg/dL 01/31/2024 8:04 PM EST [facility] Comment:Supplemental ranges: <140 mg/dL before meals <180 mg/dL all other times of the day. Blood CAPILLARY BLOOD / Unknown 01/31/2024 8:04 PM EST 01/31/2024 8:04 PM EST Tor Balbuena MD POINT OF CARE TEST ORDERABLES [facility] [place] [address] * (ABNORMAL) POC, GLUCOSE (01/31/2024 4:00 PM EST) Glucometer, POC 269(H) 65 - 199 mg/dL 01/31/2024 4:00 PM EST [facility] Comment:Supplemental ranges: <140 mg/dL before meals <180 mg/dL all other times of the day. Blood CAPILLARY BLOOD / Unknown 01/31/2024 4:00 PM EST 01/31/2024 4:01 PM EST Tor Balbuena MD POINT OF CARE TEST ORDERABLES Performing Organization Address City/[facility]/ZIP Co de Phone Number [facility] [place] [address] * POC, GLUCOSE (01/31/2024 11:30 AM EST) Pathologist [facility] Glucometer, POC 183 65 - 199 mg/dL 01/31/2024 11:30 AM EST [facility] Comment:Supplemental ranges: <140 mg/dL before meals <180 mg/dL all other times of the day. Blood CAPILLARY BLOOD / Unknown 01/31/2024 11:30 AM EST 01/31/2024 11:30 AM EST Tor Balbuena MD POINT OF CARE TEST ORDERABLES Performing Organization Address [facility] Co de Phone Number [facility] [place] [address] * ABORH RECHECK (PATIENT HISTORY FOUND) (01/31/2024 8:21 AM EST) Pathologist [facility] ABORH Recheck Progress Complete 01/31/2024 10:01 AM EST [facility] Blood VENOUS BLOOD SPECIMEN / Unknown Venipuncture / Unknown 01/31/2024 8:21 AM EST 01/31/2024 8:31 AM EST Tor Balbuena MD BLOOD BANK LAB ORD ERABLES Performing Organization Address City/[facility]/ZIP Co de Phone Number [facility] [place] [address] * Type and screen ([facility]CGP/NATO) (01/31/2024 8:21 AM EST) ABORH Type O POSITIVE 01/31/2024 9:20 AM EST [facility] PATIENT HISTORY Found 01/31/2024 9:20 AM EST [facility] Expires at [id number] on: 02-03-2024 01/31/2024 9:20 AM EST [facility] ANTIBODY SCREEN AUTOMATED Negative 01/31/2024 9:20 AM EST [facility] T&S only valid at [facility] 01/31/2024 9:20 AM EST [facility] Blood VENOUS BLOOD SPECIMEN / Unknown Venipuncture / Unknown 01/31/2024 8:21 AM EST 01/31/2024 8:31 AM EST Narrative [facility] - 01/31/2024 9:20 AM EST This Type and Screen result is only valid at the [facility] Tor Balbuena MD BLOOD BANK LAB ORD ERABLES Performing Organization Address City/[facility]/ZIP Co de Phone Number [facility] [place] [address] * POC, GLUCOSE (01/31/2024 7:18 AM EST) Glucometer, POC 156 65 - 199 mg/dL 01/31/2024 7:19 AM EST [facility] Comment:Supplemental ranges: <140 mg/dL before meals <180 mg/dL all other times of the day. Blood CAPILLARY BLOOD / Unknown 01/31/2024 7:18 AM EST 01/31/2024 7:19 AM EST Tor Balbuena MD POINT OF CARE TEST ORDERABLES Performing Organization Address [facility] Co de Phone Number [facility] [place] [address] * Magnesium (01/31/2024 5:03 AM EST) Magnesium 1.01 0.69 - 1.07 mMol/L 01/31/2024 5:47 AM EST [facility] Blood VENOUS BLOOD SPECIMEN / Unknown Venipuncture / Unknown 01/31/2024 5:03 AM EST 01/31/2024 5:14 AM EST Tor Balbuena MD CHEMISTRY ORDERABL ES Performing Organization Address City/[facility] Co de Phone Number [facility] [place] [address] * (ABNORMAL) Phosphorus (01/31/2024 5:03 AM EST) Phosphorus 4.7(H) 2.5 - 4.5 mg/dL 01/31/2024 5:47 AM [facility] Blood VENOUS BLOOD SPECIMEN / Unknown Venipuncture / Unknown 01/31/2024 5:03 AM EST 01/31/2024 5:14 AM EST Tor Balbuena MD CHEMISTRY ORDERABL ES [facility] [place] [address] * (ABNORMAL) Comprehensive metabolic panel (01/31/2024 5:03 AM EST) Pathologist [facility] Glucose 154 65 - 199 mg/dL 01/31/2024 5:47 AM [facility] Comment:Glucose Concentratio n >=200 mg/dL plus symptoms is consistent with Diabetes Mellitus. Blood Urea Nitrogen 20 10 - 20 mg/dL 01/31/2024 5:47 AM [facility] Creatinine 0.73(L) 0.80 - 1.50 [...] 6.1 - 8.0 g/dL 01/31/2024 5:47 AM EST [facility] Albumin 3.1(L) 3.2 - 5.2 g/dL [...] EST Tor Balbuena MD CHEMISTRY ORDERABL ES [facility] [place] [address] * (ABNORMAL) CBC (with Diff) (01/31/2024 5:03 AM EST) White Blood Cell 5.92 4.00 - 9.50 x10(3)/mc L 01/31/2024 5:26 AM EST [facility] Red Blood Cell 2.54(L) 4.58 - [...] Lymph % 11.0 % 01/31/2024 5:26 AM EST [facility] Lymph Absolute 0.65(L) 0.90 - 3.20 [...] EST Tor Balbuena MD HEMATOLOGY ORDERAB LES [facility] [place] [address] * POC, GLUCOSE (01/31/2024 3:43 AM EST) [facility] Signature Glucometer, POC 152 65 - 199 mg/dL 01/31/2024 3:44 AM [facility] Comment:Supplemental ranges: <140 mg/dL before meals <180 mg/dL all other times of the day. Blood CAPILLARY BLOOD / Unknown 01/31/2024 3:43 AM EST 01/31/2024 3:44 AM EST Tor Balbuena MD POINT OF CARE TEST ORDERABLES Performing Organization Address City/[facility] Co de Phone Number [facility] [place] [address] * POC, GLUCOSE (01/31/2024 12:38 AM EST) Glucometer, POC 135 65 - 199 mg/dL 01/31/2024 12:39 AM EST [facility] Comment:Supplemental ranges: <140 mg/dL before meals <180 mg/dL all other times of the day. Blood CAPILLARY BLOOD / Unknown 01/31/2024 12:38 AM EST 01/31/2024 12:39 AM EST Tor Balbuena MD POINT OF CARE TEST ORDERABLES Performing Organization Address [facility] Co de Phone Number [facility] [place] [address] * Scan Doc: Lab (01/31/2024 12:00 AM EST) Narrative 01/31/2024 12:00 AM EST Ordered by an unspecified provider. Scanning Provider MEDIA MGR SCAN EXT O RDR/RSLT * POC, GLUCOSE (01/30/2024 7:32 PM EST) Glucometer, POC 150 65 - 199 mg/dL 01/30/2024 7:32 PM EST [facility] Comment:Supplemental ranges: <140 mg/dL before meals <180 mg/dL all other times of the day. Blood CAPILLARY BLOOD / Unknown 01/30/2024 7:32 PM EST 01/30/2024 7:32 PM EST Tor Balbuena MD POINT OF CARE TEST ORDERABLES Performing Organization Address [facility] Co de Phone Number [facility] [place] [address] * POC, GLUCOSE (01/30/2024 4:49 PM EST) Glucometer, POC 181 65 - 199 mg/dL 01/30/2024 4:50 PM EST [facility] Comment:Supplemental ranges: <140 mg/dL before meals <180 mg/dL all other times of the day. Blood CAPILLARY BLOOD / Unknown 01/30/2024 4:49 PM EST 01/30/2024 4:50 PM EST Tor Balbuena MD POINT OF CARE TEST ORDERABLES [facility] [place] [address] * (ABNORMAL) POC, GLUCOSE (01/30/2024 1:46 PM EST) Glucometer, POC 224(H) 65 - 199 mg/dL 01/30/2024 1:46 PM EST [facility] Comment:Supplemental ranges: <140 mg/dL before meals <180 mg/dL all other times of the day. Blood CAPILLARY BLOOD / Unknown 01/30/2024 1:46 PM EST 01/30/2024 1:46 PM EST Tor Balbuena MD POINT OF CARE TEST ORDERABLES [facility] [place] [address] * (ABNORMAL) POC, GLUCOSE (01/30/2024 11:20 AM EST) Glucometer, POC 256(H) 65 - 199 mg/dL 01/30/2024 11:20 AM EST [facility] Comment:Supplemental ranges: <140 mg/dL before meals <180 mg/dL all other times of the day. Blood CAPILLARY BLOOD / Unknown 01/30/2024 11:20 AM EST 01/30/2024 11:20 AM EST Tor Balbuena MD POINT OF CARE TEST ORDERABLES Performing Organization Address [facility] Co de Phone Number [facility] [place] [address] * (ABNORMAL) POC, GLUCOSE (01/30/2024 7:37 AM EST) Glucometer, POC 211(H) 65 - 199 mg/dL 01/30/2024 7:38 AM EST [facility] Comment:Supplemental ranges: <140 mg/dL before meals <180 mg/dL all other times of the day. Blood CAPILLARY BLOOD / Unknown 01/30/2024 7:37 AM EST 01/30/2024 7:38 AM EST Tor Balbuena MD POINT OF CARE TEST ORDERABLES Performing Organization Address [facility] Co de Phone Number [facility] [place] [address] * (ABNORMAL) POC, GLUCOSE (01/30/2024 3:49 AM EST) Glucometer, POC 203(H) 65 - 199 mg/dL 01/30/2024 3:50 AM EST [facility] Comment:Supplemental ranges: <140 mg/dL before meals <180 mg/dL all other times of the day. Blood CAPILLARY BLOOD / Unknown 01/30/2024 3:49 AM EST 01/30/2024 3:50 AM EST Tor Balbuena MD POINT OF CARE TEST ORDERABLES Performing Organization Address [facility] Co de Phone Number [facility] [place] [address] * Magnesium (01/30/2024 3:39 AM EST) Magnesium 0.95 0.69 - 1.07 mMol/L 01/30/2024 4:22 AM EST [facility] Blood VENOUS BLOOD SPECIMEN / Unknown Venipuncture / Unknown 01/30/2024 3:39 AM EST 01/30/2024 3:51 AM EST Tor Balbuena MD CHEMISTRY ORDERABL ES [facility] [place] [address] * Phosphorus (01/30/2024 3:39 AM EST) Phosphorus 3.4 2.5 - 4.5 mg/dL 01/30/2024 4:22 AM EST [facility] Blood VENOUS BLOOD SPECIMEN / Unknown Venipuncture / Unknown 01/30/2024 3:39 AM EST 01/30/2024 3:51 AM EST Tor Balbuena MD CHEMISTRY ORDERABL ES Performing Organization Address City/[facility]/ZIP Co de Phone Number [facility] [place] [address] * (ABNORMAL) Comprehensive metabolic panel (01/30/2024 3:39 AM EST) Glucose 190 65 - 199 mg/dL 01/30/2024 4:22 AM [facility] Comment:Glucose Concentratio n >=200 mg/dL plus symptoms is consistent with Diabetes Mellitus. Blood Urea Nitrogen 15 10 - 20 mg/dL 01/30/2024 4:22 AM [facility] Creatinine 0.55(L) 0.80 - [...] 8.5 - 10.5 mg/dL 01/30/2024 4:22 AM EST [facility] Protein, Total 5.6(L) 6.1 - 8.0 g/dL 01/30/2024 4:22 AM [facility] Albumin 3.0(L) 3.2 - 5.2 g/dL 01/30/2024 4:22 AM EST [facility] Aspartate Aminotransferase 18 <=39 unit/L 01/30/2024 [...] EST Tor Balbuena MD CHEMISTRY ORDERABL ES [facility] [place] [address] * (ABNORMAL) CBC (with Diff) (01/30/2024 3:39 [...] - 0.04 x10(3)/mc L 01/30/2024 3:57 AM [facility] Blood VENOUS BLOOD SPECIMEN / Unknown Venipuncture / Unknown 01/30/2024 3:39 AM EST 01/30/2024 3:51 AM EST Tor Balbuena MD HEMATOLOGY ORDERAB LES [facility] [place] [address] * POC, GLUCOSE (01/29/2024 11:22 PM EST) Glucometer, POC 159 65 - 199 mg/dL 01/29/2024 11:22 PM EST [facility] Comment:Supplemental ranges: <140 mg/dL before meals <180 mg/dL all other times of the day. Blood CAPILLARY BLOOD / Unknown 01/29/2024 11:22 PM EST 01/29/2024 11:22 PM EST Tor Balbuena MD POINT OF CARE TEST ORDERABLES [facility] [place] [address] * POC, GLUCOSE (01/29/2024 7:41 PM EST) Glucometer, POC 184 65 - 199 mg/dL 01/29/2024 7:41 PM EST [facility] Comment:Supplemental ranges: <140 mg/dL before meals <180 mg/dL all other times of the day. Blood CAPILLARY BLOOD / Unknown 01/29/2024 7:41 PM EST 01/29/2024 7:41 PM EST Tor Balbuena MD POINT OF CARE TEST ORDERABLES Performing Organization Address City/[facility]/ZIP Co de Phone Number [facility] [place] [address] * POC, GLUCOSE (01/29/2024 3:55 PM EST) Glucometer, POC 194 65 - 199 mg/dL 01/29/2024 3:55 PM EST [facility] Comment:Supplemental ranges: <140 mg/dL before meals <180 mg/dL all other times of the day. Blood CAPILLARY BLOOD / Unknown 01/29/2024 3:55 PM EST 01/29/2024 3:55 PM EST Tor Balbuena MD POINT OF CARE TEST ORDERABLES Performing Organization Address City/[facility]/ZIP Co de Phone Number [facility] [place] [address] * POC, GLUCOSE (01/29/2024 12:01 PM EST) Glucometer, POC 181 65 - 199 mg/dL 01/29/2024 12:01 PM EST [facility] Comment:Supplemental ranges: <140 mg/dL before meals <180 mg/dL all other times of the day. Blood CAPILLARY BLOOD / Unknown 01/29/2024 12:01 PM EST 01/29/2024 12:01 PM EST Tor Balbuena MD POINT OF CARE TEST ORDERABLES [facility] [place] [address] * (ABNORMAL) POC, GLUCOSE (01/29/2024 7:59 AM EST) Glucometer, POC 206(H) 65 - 199 mg/dL 01/29/2024 8:00 AM EST [facility] Comment:Supplemental ranges: <140 mg/dL before meals <180 mg/dL all other times of the day. Blood CAPILLARY BLOOD / Unknown 01/29/2024 7:59 AM EST 01/29/2024 8:00 AM EST Tor Blabuena MD POINT OF CARE TEST ORDERABLES [facility] [place] [address] * (ABNORMAL) POC, GLUCOSE (01/29/2024 4:10 AM EST) Glucometer, POC 200(H) 65 - 199 mg/dL 01/29/2024 4:10 AM EST [facility] Comment:Supplemental ranges: <140 mg/dL before meals <180 mg/dL all other times of the day. Blood CAPILLARY BLOOD / Unknown 01/29/2024 4:10 AM EST 01/29/2024 4:11 AM EST Tor Balbuena MD POINT OF CARE TEST ORDERABLES Performing Organization Address City/[facility]/ZIP Co de Phone Number [facility] [place] [address] * Magnesium (01/29/2024 3:56 AM EST) Pathologist [facility] Magnesium 0.86 0.69 - 1.07 mMol/L 01/29/2024 4:41 AM EST [facility] Blood VENOUS BLOOD SPECIMEN / Unknown Venipuncture / Unknown 01/29/2024 3:56 AM EST 01/29/2024 4:12 AM EST Tor Balbuena MD CHEMISTRY ORDERABL ES Performing Organization Address [facility]/ZIP Co de Phone Number [facility] [place] [address] * Phosphorus (01/29/2024 3:56 AM EST) Pathologist [facility] Phosphorus 3.2 2.5 - 4.5 mg/dL 01/29/2024 4:41 AM EST [facility] Blood VENOUS BLOOD SPECIMEN / Unknown Venipuncture / Unknown 01/29/2024 3:56 AM EST 01/29/2024 4:12 AM EST Tor Balbuena MD CHEMISTRY ORDERABL ES Performing Organization Address City/[facility]/ZIP Co de Phone Number [facility] [place] [address] * (ABNORMAL) Comprehensive metabolic panel (01/29/2024 3:56 AM EST) Pathologist [facility] Glucose 205(H) 65 - 199 mg/dL 01/29/2024 4:41 AM EST [facility] Comment:Glucose Concentratio n >=200 mg/dL plus symptoms is consistent with Diabetes Mellitus. Blood Urea Nitrogen 12 10 - 20 mg/dL 01/29/2024 4:41 AM EST [facility] Creatinine 0.50(L) 0.80 - 1.50 mg/dL 01/29/2024 4:41 AM EST [facility] Sodium 136 135 - 145 [...] Total 0.7 <=1.3 mg/dL 01/29/2024 4:41 AM [facility] Est [...] EST Tor Balbuena MD CHEMISTRY ORDERABL ES [facility] [place] [address] * (ABNORMAL) CBC (with Diff) (01/29/2024 3:56 AM EST) White Blood Cell 7.65 4.00 - 9.50 x10(3)/mc L 01/29/2024 4:17 AM [facility] Red Blood Cell 2.66(L) 4.58 - 5.54 x10(6)/mc L 01/29/2024 4:17 AM [facility] Hemoglobin 8.2(L) [...] Eos % 1.4 % 01/29/2024 4:17 AM [facility] Eos Absolute 0.11 0.00 - 0.40 x10(3)/mc L 01/29/2024 4:17 AM [facility] Basophil % 0.1 % 01/29/2024 4:17 AM [facility] Baso Absolute <0.04 0.00 - 0.10 x10(3)/mc L 01/29/2024 4:17 AM [facility] Immature Gran % 0.8 % 4:17 AM [facility] Immature Gran Absolute 0.06(H) 0.00 - 0.04 x10(3)/mc L 01/29/2024 4:17 AM EST [facility] Blood VENOUS BLOOD SPECIMEN / Unknown Venipuncture / Unknown 01/29/2024 3:56 AM EST 01/29/2024 4:12 AM EST Tor Balbuena MD HEMATOLOGY ORDERAB LES [facility] [place] [address] * POC, GLUCOSE (01/28/2024 11:21 PM EST) Pathologist [facility] Glucometer, POC 191 65 - 199 mg/dL 01/28/2024 11:21 PM EST [facility] Comment:Supplemental ranges: <140 mg/dL before meals <180 mg/dL all other times of the day. Blood CAPILLARY BLOOD / Unknown 01/28/2024 11:21 PM EST 01/28/2024 11:21 PM EST Tor Balbuena MD POINT OF CARE TEST ORDERABLES Performing Organization Address City/[facility]/ZIP Co de Phone Number [facility] [place] [address] * (ABNORMAL) Hemogram (01/28/2024 8:52 PM EST) White Blood Cell 7.33 4.00 - 9.50 x10(3)/mc L 01/28/2024 9:06 PM EST [facility] Red Blood Cell 2.63(L) 4.58 - 5.54 x10(6)/mc L 01/28/2024 9:06 PM EST [facility] Hemoglobin 8.2(L) 13.7 - 16.5 g/dL 01/28/2024 9:06 PM EST [facility] Hematocrit 24.3(L) 40.5 - 48.5 % 01/28/2024 9:06 PM EST [facility] Mean Cell Volume 92.4 82.9 [...] EST Tor Balbuena MD HEMATOLOGY ORDERAB LES [facility] [place] [address] * POC, GLUCOSE (01/28/2024 7:30 PM EST) [facility] Signature Glucometer, POC 194 65 - 199 mg/dL 01/28/2024 7:30 PM [facility] Comment:Supplemental ranges: <140 mg/dL before meals <180 mg/dL all other times of the day. Blood CAPILLARY BLOOD / Unknown 01/28/2024 7:30 PM EST 01/28/2024 7:30 PM EST Tor Balbuena MD POINT OF CARE TEST ORDERABLES Performing Organization Address City/[facility]/ZIP Co de Phone Number [facility] [place] [address] * POC, GLUCOSE (01/28/2024 3:43 PM EST) [facility] Glucometer, POC 191 65 - 199 mg/dL 01/28/2024 3:43 PM EST [facility] Comment:Supplemental ranges: <140 mg/dL before meals <180 mg/dL all other times of the day. Blood CAPILLARY BLOOD / Unknown 01/28/2024 3:43 PM EST 01/28/2024 3:43 PM EST Tor Balbuena MD POINT OF CARE TEST ORDERABLES Performing Organization Address [facility]/ZIP Co de Phone Number [facility] [place] [address] * (ABNORMAL) CBC (with Diff) (01/28/2024 1:04 PM EST) [facility] White Blood Cell 7.98 4.00 - 9.50 x10(3)/mc L 01/28/2024 1:42 PM [facility] Red [...] - 3.20 x10(3)/mc L 01/28/2024 1:42 PM [facility] Monocyte % 8.9 % 01/28/2024 1:42 PM [facility] Monocyte Absolute 0.71 0.30 - 0.90 x10(3)/mc L 01/28/2024 1:42 PM [facility] Eos % 1.6 % 01/28/2024 1:42 PM [facility] Eos Absolute 0.13 0.00 - 0.40 x10(3)/mc L 01/28/2024 1:42 PM [facility] Basophil % 0.1 % 01/28/2024 1:42 PM EST [facility] Baso Absolute <0.04 0.00 - 0.10 x10(3)/mc L 01/28/2024 1:42 PM EST [facility] Immature Gran % 1.0 % 1:42 PM EST [facility] Immature Gran Absolute 0.08(H) 0.00 - 0.04 x10(3)/mc L 01/28/2024 1:42 PM EST [facility] Blood VENOUS BLOOD SPECIMEN / Unknown Venipuncture / Unknown 01/28/2024 1:04 PM EST 01/28/2024 1:30 PM EST Tor Balbuena MD HEMATOLOGY ORDERAB LES Performing Organization Address City/[facility]/ZIP Co de Phone Number [facility] [place] [address] * (ABNORMAL) POC, GLUCOSE (01/28/2024 12:08 PM EST) Glucometer, POC 206(H) 65 - 199 mg/dL 01/28/2024 12:08 PM EST [facility] Comment:Supplemental ranges: <140 mg/dL before meals <180 mg/dL all other times of the day. Blood CAPILLARY BLOOD / Unknown 01/28/2024 12:08 PM EST 01/28/2024 12:08 PM EST Tor Balbuena MD POINT OF CARE TEST ORDERABLES Performing Organization Address City/[facility]/ZIP Co de Phone Number [facility] [place] [address] * (ABNORMAL) POC, GLUCOSE (01/28/2024 7:52 AM EST) Glucometer, POC 209(H) 65 - 199 mg/dL 01/28/2024 7:53 AM EST [facility] Comment:Supplemental ranges: <140 mg/dL before meals <180 mg/dL all other times of the day. Blood CAPILLARY BLOOD / Unknown 01/28/2024 7:52 AM EST 01/28/2024 7:53 AM EST Tor Balbuena MD POINT OF CARE TEST ORDERABLES Performing Organization Address [facility] Co de Phone Number [facility] [place] [address] * POC, GLUCOSE (01/28/2024 3:53 AM EST) Glucometer, POC 185 65 - 199 mg/dL 01/28/2024 3:53 AM EST [facility] Comment:Supplemental ranges: <140 mg/dL before meals <180 mg/dL all other times of the day. Blood CAPILLARY BLOOD / Unknown 01/28/2024 3:53 AM EST 01/28/2024 3:53 AM EST Tor Balbuena MD POINT OF CARE TEST ORDERABLES Performing Organization Address [facility] Co de Phone Number [facility] [place] [address] * Magnesium (01/28/2024 3:39 AM EST) Magnesium 0.81 0.69 - 1.07 mMol/L 01/28/2024 4:13 AM EST [facility] Blood VENOUS BLOOD SPECIMEN / Unknown Venipuncture / Unknown 01/28/2024 3:39 AM EST 01/28/2024 3:43 AM EST Tor Balbuena MD CHEMISTRY ORDERABL ES Performing Organization Address City/[facility] Co de Phone Number [facility] [place] [address] * Phosphorus (01/28/2024 3:39 AM EST) Phosphorus 2.9 2.5 - 4.5 mg/dL 01/28/2024 4:13 AM EST [facility] Blood VENOUS BLOOD SPECIMEN / Unknown Venipuncture / Unknown 01/28/2024 3:39 AM EST 01/28/2024 3:43 AM EST Tor Balbuena MD CHEMISTRY ORDERABL ES [facility] [place] [address] * (ABNORMAL) Comprehensive metabolic panel (01/28/2024 3:39 [...] 19 <=39 unit/L 01/28/2024 4:13 AM EST [facility] Alanine Aminotransferase 45 0 - [...] EST Tor Balbuena MD CHEMISTRY ORDERABL ES [facility] [place] [address] * (ABNORMAL) CBC (with Diff) (01/28/2024 3:39 AM EST) White Blood Cell 6.91 4.00 - 9.50 x10(3)/mc L 01/28/2024 3:52 AM EST [facility] Red Blood Cell 2.61(L) 4.58 [...] Monocyte % 8.4 % 01/28/2024 3:52 AM EST [facility] Monocyte Absolute 0.58 0.30 - 0.90 x10(3)/mc L 01/28/2024 3:52 AM EST [facility] Eos % 2.0 % 01/28/2024 3:52 AM [facility] Eos Absolute 0.14 0.00 - 0.40 x10(3)/mc L 01/28/2024 3:52 AM EST [facility] Basophil % 0.1 % 01/28/2024 3:52 AM [facility] Baso Absolute <0.04 0.00 - 0.10 x10(3)/mc L 01/28/2024 3:52 AM [facility] Immature Gran % 0.6 % 3:52 AM [facility] Immature Gran Absolute 0.04 0.00 - 0.04 x10(3)/mc L 01/28/2024 3:52 AM EST [facility] Blood VENOUS BLOOD SPECIMEN / Unknown Venipuncture / Unknown 01/28/2024 3:39 AM EST 01/28/2024 3:43 AM EST Tor Balbuena MD HEMATOLOGY ORDERAB LES [facility] [place] [address] * (ABNORMAL) Amylase (01/28/2024 3:39 AM EST) Amylase 9(L) 28 - 100 unit/L 01/28/2024 4:13 AM EST [facility] Blood VENOUS BLOOD SPECIMEN / Unknown Venipuncture / Unknown 01/28/2024 3:39 AM EST 01/28/2024 3:43 AM EST Tor Balbuena MD CHEMISTRY ORDERABL ES [facility] [place] [address] * POC, GLUCOSE (01/27/2024 11:52 PM EST) Glucometer, POC 197 65 - 199 mg/dL 01/27/2024 11:52 PM EST [facility] Comment:Supplemental ranges: <140 mg/dL before meals <180 mg/dL all other times of the day. Blood CAPILLARY BLOOD / Unknown 01/27/2024 11:52 PM EST 01/27/2024 11:52 PM EST Tor Balbuena MD POINT OF CARE TEST ORDERABLES [facility] [place] [address] * Troponin-T, High Sensitivity 1 Hour (01/27/2024 [...] value can be found in the [facility] Test Catalog Troponin - https://one-.testcatalog.org/catalogs/565/files/46607 Reference: Fourth [place] Definition of Myocardial Infarction. Journal of the [place] [employer] 2018;72:4449-0134 Troponin-T, HS 1 hr delta 1 ng/L [...] MD CHEMISTRY ORDERABL ES Performing Organization Address City/[facility]/ZIP Co de Phone Number [facility] [place] [address] * POC, GLUCOSE (01/27/2024 7:34 PM EST) Glucometer, POC 197 65 - 199 mg/dL 01/27/2024 7:34 PM EST [facility] Comment:Supplemental ranges: <140 mg/dL before meals <180 mg/dL all other times of the day. Blood CAPILLARY BLOOD / Unknown 01/27/2024 7:34 PM EST 01/27/2024 7:34 PM EST Tor Balbuena MD POINT OF CARE TEST ORDERABLES Performing Organization Address [facility] Co de Phone Number [facility] [place] [address] * (ABNORMAL) Phosphorus (01/27/2024 7:13 PM EST) Phosphorus 2.3(L) 2.5 - 4.5 mg/dL 01/27/2024 7:57 PM EST [facility] Blood VENOUS BLOOD SPECIMEN / Unknown Venipuncture / Unknown 01/27/2024 7:13 PM EST 01/27/2024 7:16 PM EST Tor Balbuena MD CHEMISTRY ORDERABL ES Performing Organization Address City/[facility]/ZIP Co de Phone Number [facility] [place] [address] * Magnesium (01/27/2024 7:13 PM EST) Magnesium 0.79 0.69 - 1.07 mMol/L 01/27/2024 7:57 PM EST [facility] Blood VENOUS BLOOD SPECIMEN / Unknown Venipuncture / Unknown 01/27/2024 7:13 PM EST 01/27/2024 7:16 PM EST Tor Balbuena MD CHEMISTRY ORDERABL ES [facility] [place] [address] * (ABNORMAL) Basic Metabolic Panel (01/27/2024 7:13 PM EST) Pathologist [facility] Glucose 202(H) 65 - 199 mg/dL 01/27/2024 [...] 3.5 - 5.0 mMol/L 01/27/2024 7:57 PM [facility] Chloride 100 98 - 107 mMol/L 01/27/2024 7:57 PM EST [facility] Carbon Dioxide 30 22 - 31 mMol/L 01/27/2024 7:57 PM EST [facility] Anion Gap 5 5 - 15 mMol/L 01/27/2024 7:57 PM [facility] Calcium 8.1(L) 8.5 - 10.5 mg/dL 01/27/2024 7:57 PM [facility] Est Glomerular Filtration Rate - Male 106 mL/min/1. 73 m?? 01/27/2024 7:57 PM EST [facility] EST Tor Balbuena MD CHEMISTRY ORDERABL ES [facility] [place] [address] * Troponin-T, High Sensitivity (01/27/2024 7:13 PM [...] value can be found in the [facility] Test Catalog Troponin - https://one-.testcatalog.org/catalogs/565/files/73439 Reference: Fourth [place] Definition of Myocardial Infarction. Journal of the [place] [employer]iology 2018;72:3756-3349 Blood VENOUS BLOOD SPECIMEN / Unknown Venipuncture / Unknown 01/27/2024 7:13 PM EST 01/27/2024 7:16 PM EST Tor Balbuena MD CHEMISTRY ORDERABL ES Performing Organization Address [facility]/ZIP Co de Phone Number [facility] [place] [address] * EKG 12 Lead (01/27/2024 6:57 PM EST) Ventricular rate 89 BPM MUSE SYSTEM Atrial Rate 89 BPM MUSE SYSTEM P-R Interval 168 ms MUSE SYSTEM QRS Duration 112 ms MUSE SYSTEM Q-T Interval 376 ms MUSE SYSTEM QTC Calculated (Bezet) 457 ms MUSE SYSTEM Calculated P [place] 43 degrees MUSE SYSTEM Calculated R Ne[place] -17 degrees MUSE SYSTEM Calculated T Ne[place] 11 degrees MUSE SYSTEM INTERPRETATION Sinus rhythm with Premature supraventricular complexes Right bundle branch block Abnormal ECG When compared with ECG of 24-JAN-2024 21:38, Premature supraventricular complexes are now Present Right bundle branch block is now Present Confirmed by MD Burnham Jon ([id number]) on 01/28/2024 1:19:34 PM MUSE SYSTEM 01/27/2024 6:57 PM EST 01/28/2024 1:19 PM EST Tor Balbuena MD ECG ORDERABLES Performing Organization Address City/[facility]/ZIP Co de Phone Number MUSE SYSTEM * (ABNORMAL) POC, GLUCOSE (01/27/2024 3:42 PM EST) Glucometer, POC 219(H) 65 - 199 mg/dL 01/27/2024 3:43 PM EST [facility] Comment:Supplemental ranges: <140 mg/dL before meals <180 mg/dL all other times of the day. Blood CAPILLARY BLOOD / Unknown 01/27/2024 3:42 PM EST 01/27/2024 3:43 PM EST Tor Balbuena MD POINT OF CARE TEST ORDERABLES Performing Organization Address City/[facility]/ZIP Co de Phone Number [facility] [place] [address] * Amylase Level Body Fluid (01/27/2024 3:16 PM EST) Amylase, Fluid <3 unit/L 01/27/2024 4:17 PM EST [facility] Comment: Reference intervals are unavailable for this test in body fluids. Comparison of this result with the concentration in blood serum or plasma is recommended. This test has not been cleared by the [place] FDA. Performance characteristics of this test for the analysis of body fluids were determined by [facility] in accordance with CLIA requirements. This laboratory [...] body fluids were determined by [facility] in accordance with CLIA requirements. This laboratory is qualified under CLIA to perform high-complexity testing. Body Fluid Source Pietro Page 01/27/2024 4:17 PM EST [facility] Body Fluid PIETRO - PAGE DRAIN / Unknown Non Blood Collection / Unknown 01/27/2024 3:16 PM EST 01/27/2024 3:27 PM EST Tor Balbuena MD BODY FLUIDS AND ST OOLS ORDERABLES [facility] [place] [address] * (ABNORMAL) POC, GLUCOSE (01/27/2024 12:09 PM EST) Glucometer, POC 202(H) 65 - 199 mg/dL 01/27/2024 12:09 PM EST [facility] Comment:Supplemental ranges: <140 mg/dL before meals <180 mg/dL all other times of the day. Blood CAPILLARY BLOOD / Unknown 01/27/2024 12:09 PM EST 01/27/2024 12:09 PM EST Tor Balbuena MD POINT OF CARE TEST ORDERABLES Performing Organization Address City/[facility]/ZIP Co de Phone Number [facility] [place] [address] * Triglyceride Level Body Fluid (01/27/2024 8:27 [...] body fluids were determined by [facility] in accordance with CLIA requirements. This laboratory is qualified under CLIA to perform high-complexity testing. Body Fluid Source Pietro Page 01/27/2024 9:29 AM EST [facility] Body Fluid PIETRO - PAGE DRAIN / Unknown Non Blood Collection / Unknown 01/27/2024 8:27 AM EST 01/27/2024 8:45 AM EST Tor Balbuena MD BODY FLUIDS AND ST OOLS ORDERABLES [facility] [place] [address] * POC, GLUCOSE (01/27/2024 7:47 AM EST) Glucometer, POC 149 65 - 199 mg/dL 01/27/2024 7:48 AM EST [facility] Comment:Supplemental ranges: <140 mg/dL before meals <180 mg/dL all other times of the day. Blood CAPILLARY BLOOD / Unknown 01/27/2024 7:47 AM EST 01/27/2024 7:48 AM EST Tor Balbuena MD POINT OF CARE TEST ORDERABLES [facility] [address] [place] [address] * CT Abdomen & Pelvis wwo Contrast (GI BLEED) (01/27/2024 3:55 AM EST) WORKSTATION ID [id number] RAD Anatomical Region Laterality Modality Abdomen, Pelvis [...] have questions please contact the health care connector that requested your imaging first. ? Narrative [...] who have questions please contactthe health care connector that requested your imaging first. Tor Balbuena MD IM CT ORDERABLES * ABORH RECHECK (PATIENT HISTORY FOUND) (01/27/2024 3:15 AM EST) ABORH Recheck Progress Complete 01/27/2024 5:01 AM EST [facility] Blood VENOUS BLOOD SPECIMEN / Unknown Venipuncture / Unknown 01/27/2024 3:15 AM EST 01/27/2024 3:20 AM EST Tor Balbuena MD BLOOD BANK LAB ORD ERABLES [facility] [place] [address] * Type and screen ([facility]CGP/NATO) (01/27/2024 3:15 AM EST) Pathologist Juan Francisco ABORH Type O POSITIVE 01/27/2024 4:16 AM EST [facility] PATIENT HISTORY Found 01/27/2024 4:16 AM EST [facility] Expires at [id number] on: 01/30/2024 01/27/2024 4:16 AM EST [facility] ANTIBODY SCREEN AUTOMATED Negative 01/27/2024 4:16 AM EST [facility] T&S only valid at [facility] 01/27/2024 4:16 AM EST [facility] Blood VENOUS BLOOD SPECIMEN / Unknown Venipuncture / Unknown 01/27/2024 3:15 AM EST 01/27/2024 3:20 AM EST Narrative [facility] - 01/27/2024 4:16 AM EST This Type and Screen result is only valid at the [facility] Tor Balbuena MD BLOOD BANK LAB ORD ERABLES Performing Organization Address City/[facility]/ZIP Co de Phone Number [facility] [place] [address] * POC, GLUCOSE (01/27/2024 3:11 AM EST) [facility] Glucometer, POC 155 65 - 199 mg/dL 01/27/2024 3:11 AM EST [facility] Comment:Supplemental ranges: <140 mg/dL before meals <180 mg/dL all other times of the day. Blood CAPILLARY BLOOD / Unknown 01/27/2024 3:11 AM EST 01/27/2024 3:12 AM EST Tor Balbuena MD POINT OF CARE TEST ORDERABLES [facility] [place] [address] * Triglyceride (01/27/2024 12:48 AM EST) Triglyceride 134 mg/dL 01/27/2024 11:42 AM EST [facility] Comment: Normal: <150 mg/dL Borderline High: 150-199 mg/dL High: 200-499 mg/dL Very High: > or =500 mg/dL Blood VENOUS BLOOD SPECIMEN / Unknown Venipuncture / Unknown 01/27/2024 12:48 AM EST 01/27/2024 12:54 AM EST Tor Balbuena MD CHEMISTRY ORDERABL ES Performing Organization Address City/[facility]/ZIP Co de Phone Number [facility] [place] [address] * Magnesium (01/27/2024 12:48 AM EST) Magnesium 0.78 0.69 - 1.07 mMol/L 01/27/2024 1:29 AM EST [facility] Blood VENOUS BLOOD SPECIMEN / Unknown Venipuncture / Unknown 01/27/2024 12:48 AM EST 01/27/2024 12:54 AM EST Tor Balbuena MD CHEMISTRY ORDERABL ES Performing Organization Address City/[facility]/ZIP Co de Phone Number [facility] [place] [address] * Phosphorus (01/27/2024 12:48 AM EST) Phosphorus 2.9 2.5 - 4.5 mg/dL 01/27/2024 1:29 AM EST [facility] Blood VENOUS BLOOD SPECIMEN / Unknown Venipuncture / Unknown 01/27/2024 12:48 AM EST 01/27/2024 12:54 AM EST Tor Balbuena MD CHEMISTRY ORDERABL ES [facility] [place] [address] * (ABNORMAL) Comprehensive metabolic panel (01/27/2024 12:48 [...] 0.8 <=1.3 mg/dL 01/27/2024 1:29 AM EST [facility] Est [...] EST Tor Balbuena MD CHEMISTRY ORDERABL ES [facility] [place] [address] * (ABNORMAL) CBC (with Diff) (01/27/2024 12:48 [...] Eos % 3.0 % 01/27/2024 1:02 AM EST [facility] Eos Absolute 0.13 0.00 - 0.40 x10(3)/mc L 01/27/2024 1:02 AM EST [facility] Basophil % 0.2 % 01/27/2024 1:02 AM EST [facility] Baso Absolute <0.04 0.00 - 0.10 x10(3)/mc L 01/27/2024 1:02 AM EST [facility] Immature Gran % 0.5 % 1:02 AM [facility] Immature Gran Absolute <0.04 0.00 - 0.04 x10(3)/mc L 01/27/2024 1:02 AM [facility] Blood VENOUS BLOOD SPECIMEN / Unknown Venipuncture / Unknown 01/27/2024 12:48 AM EST 01/27/2024 12:55 AM EST Tor Balbuena MD HEMATOLOGY ORDERAB LES [facility] [place] [address] * (ABNORMAL) Amylase (01/27/2024 12:48 AM EST) [facility] Amylase 10(L) 28 - 100 unit/L 01/27/2024 1:29 AM EST [facility] Blood VENOUS BLOOD SPECIMEN / Unknown Venipuncture / Unknown 01/27/2024 12:48 AM EST 01/27/2024 12:54 AM EST Tor Balbuena MD CHEMISTRY ORDERABL ES [facility] [place] [address] * POC, GLUCOSE (01/27/2024 12:36 AM EST) Pathologist [facility] Glucometer, POC 162 65 - 199 mg/dL 01/27/2024 12:36 AM EST [facility] Comment:Supplemental ranges: <140 mg/dL before meals <180 mg/dL all other times of the day. Blood CAPILLARY BLOOD / Unknown 01/27/2024 12:36 AM EST 01/27/2024 12:36 AM EST Tor Balbuena MD POINT OF CARE TEST ORDERABLES Performing Organization Address City/[facility]/ZIP Co de Phone Number [facility] [place] [address] * POC, GLUCOSE (2024 8:03 PM EST) Glucometer, POC 139 65 - 199 mg/dL 2024 8:04 PM EST [facility] Comment:Supplemental ranges: <140 mg/dL before meals <180 mg/dL all other times of the day. Blood CAPILLARY BLOOD / Unknown 2024 8:03 PM EST 2024 8:04 PM EST Tor Balbuena MD POINT OF CARE TEST ORDERABLES Performing Organization Address [facility] Co de Phone Number [facility] [place] [address] * POC, GLUCOSE (2024 4:14 PM EST) Glucometer, POC 143 65 - 199 mg/dL 2024 4:14 PM EST [facility] Comment:Supplemental ranges: <140 mg/dL before meals <180 mg/dL all other times of the day. Blood CAPILLARY BLOOD / Unknown 2024 4:14 PM EST 2024 4:14 PM EST Tor Balbuena MD POINT OF CARE TEST ORDERABLES Performing Organization Address City/[facility]/ZIP Co de Phone Number [facility] [place] [address] * Amylase Level Body Fluid (2024 1:04 PM EST) Amylase, Fluid 4 unit/L 2024 5:31 PM EST [facility] Comment:Reference intervals are unavailable for this test in body fluids. Comparison of this result with the concentration in blood serum or plasma is recommended. This test has not been cleared by the [place] FDA. Performance characteristics of this test for the analysis of body fluids were determined by [facility] in accordance with CLIA requirements. This laboratory is qualified under CLIA to perform high-complexity testing. Body Fluid Source Heather drain 024 5:31 PM EST [facility] HEATHER Drain 2024 1:04 PM EST 2024 1:10 PM EST Tor Balbuena MD BODY FLUIDS AND ST OOLS ORDERABLES Performing Organization Address City/[facility]/ZIP Co de Phone Number [facility] [place] [address] * POC, GLUCOSE (2024 11:40 AM EST) Glucometer, POC 140 65 - 199 mg/dL 2024 11:40 AM EST [facility] Comment:Supplemental ranges: <140 mg/dL before meals <180 mg/dL all other times of the day. Blood CAPILLARY BLOOD / Unknown 2024 11:40 AM EST 2024 11:41 AM EST Tor Balbuena MD POINT OF CARE TEST ORDERABLES [facility] [place] [address] * POC, GLUCOSE (2024 8:20 AM EST) Glucometer, POC 182 65 - 199 mg/dL 2024 8:20 AM EST [facility] Comment:Supplemental ranges: <140 mg/dL before meals <180 mg/dL all other times of the day. Blood CAPILLARY BLOOD / Unknown 2024 8:20 AM EST 2024 8:20 AM EST Tor Balbuena MD POINT OF CARE TEST ORDERABLES Performing Organization Address City/[facility] Co de Phone Number [facility] [place] [address] * POC, GLUCOSE (2024 5:04 AM EST) Glucometer, POC 155 65 - 199 mg/dL 2024 5:04 AM EST [facility] Comment:Supplemental ranges: <140 mg/dL before meals <180 mg/dL all other times of the day. Blood CAPILLARY BLOOD / Unknown 2024 5:04 AM EST 2024 5:04 AM EST Tor Balbuena MD POINT OF CARE TEST ORDERABLES Performing Organization Address [facility] Co de Phone Number [facility] [place] [address] * POC, GLUCOSE (2024 12:24 AM EST) Glucometer, POC 146 65 - 199 mg/dL 2024 12:24 AM EST [facility] Comment:Supplemental ranges: <140 mg/dL before meals <180 mg/dL all other times of the day. Blood CAPILLARY BLOOD / Unknown 2024 12:24 AM EST 2024 12:24 AM EST Tor Balbuena MD POINT OF CARE TEST ORDERABLES Performing Organization Address City/[facility] Co de Phone Number [facility] [place] [address] * Magnesium (2024 12:22 AM EST) Magnesium 0.82 0.69 - 1.07 mMol/L 2024 1:09 AM EST [facility] Blood VENOUS BLOOD SPECIMEN / Unknown Venipuncture / Unknown 2024 12:22 AM EST 2024 12:35 AM EST Tor Balbuena MD CHEMISTRY ORDERABL ES [facility] [place] [address] * (ABNORMAL) Phosphorus (2024 12:22 AM EST) Phosphorus 2.1(L) 2.5 - 4.5 mg/dL 2024 1:09 AM [facility] Blood VENOUS BLOOD SPECIMEN / Unknown Venipuncture / Unknown 2024 12:22 AM EST 2024 12:35 AM EST Tor Balbuena MD CHEMISTRY ORDERABL ES [facility] [place] [address] * (ABNORMAL) Comprehensive metabolic panel (2024 12:22 AM EST) Glucose 149 65 - 199 mg/dL 2024 1:09 AM [facility] Comment:Glucose [...] EST Tor Balbuena MD CHEMISTRY ORDERABL ES [facility] [place] [address] * (ABNORMAL) CBC (with Diff) (2024 12:22 [...] Immature Gran % 0.2 % 12:43 AM [facility] Immature Gran Absolute <0.04 0.00 - 0.04 x10(3)/mc L 2024 12:43 AM [facility] Blood VENOUS BLOOD SPECIMEN / Unknown Venipuncture / Unknown 2024 12:22 AM EST 2024 12:35 AM EST Tor Balbuena MD HEMATOLOGY ORDERAB LES [facility] [place] [address] * (ABNORMAL) Amylase (2024 12:22 AM EST) Amylase 9(L) 28 - 100 unit/L 2024 1:09 AM EST [facility] Blood VENOUS BLOOD SPECIMEN / Unknown Venipuncture / Unknown 2024 12:22 AM EST 2024 12:35 AM EST Tor Balbuena MD CHEMISTRY ORDERABL ES [facility] [place] [address] * POC, GLUCOSE (01/25/2024 8:19 PM EST) Glucometer, POC 168 65 - 199 mg/dL 01/25/2024 8:19 PM EST [facility] Comment:Supplemental ranges: <140 mg/dL before meals <180 mg/dL all other times of the day. Blood CAPILLARY BLOOD / Unknown 01/25/2024 8:19 PM EST 01/25/2024 8:19 PM EST Tor Balbuena MD POINT OF CARE TEST ORDERABLES Performing Organization Address City/[facility]/ZIP Co de Phone Number [facility] [place] [address] * POC, GLUCOSE (01/25/2024 4:13 PM EST) Glucometer, POC 150 65 - 199 mg/dL 01/25/2024 4:13 PM EST [facility] Comment:Supplemental ranges: <140 mg/dL before meals <180 mg/dL all other times of the day. Blood CAPILLARY BLOOD / Unknown 01/25/2024 4:13 PM EST 01/25/2024 4:13 PM EST Tor Balbuena MD POINT OF CARE TEST ORDERABLES [facility] [place] [address] * Amylase Level Body Fluid (01/25/2024 2:15 PM EST) Amylase, Fluid 7 unit/L 01/25/2024 4:10 PM EST [facility] Comment:Reference intervals are unavailable for this test in body fluids. Comparison of this result with the concentration in blood serum or plasma is recommended. This test has not been cleared by the [place] FDA. Performance characteristics of this test for the analysis of body fluids were determined by [facility] in accordance with CLIA requirements. This laboratory is qualified under CLIA to perform high-complexity testing. Body Fluid Source HEATHER drain 4:10 PM EST [facility] HEATHER Drain 01/25/2024 2:15 PM EST 01/25/2024 2:19 PM EST Tor Balbuena MD BODY FLUIDS AND ST OOLS ORDERABLES Performing Organization Address City/[facility]/ZIP Co de Phone Number [facility] [place] [address] * POC, GLUCOSE (01/25/2024 11:42 AM EST) Glucometer, POC 199 65 - 199 mg/dL 01/25/2024 11:43 AM EST [facility] Comment:Supplemental ranges: <140 mg/dL before meals <180 mg/dL all other times of the day. Blood CAPILLARY BLOOD / Unknown 01/25/2024 11:42 AM EST 01/25/2024 11:43 AM EST Tor Balbuena MD POINT OF CARE TEST ORDERABLES [facility] [place] [address] * POC, GLUCOSE (01/25/2024 8:20 AM EST) Glucometer, POC 188 65 - 199 mg/dL 01/25/2024 8:20 AM EST [facility] Comment:Supplemental ranges: <140 mg/dL before meals <180 mg/dL all other times of the day. Blood CAPILLARY BLOOD / Unknown 01/25/2024 8:20 AM EST 01/25/2024 8:20 AM EST Tor Balbuena MD POINT OF CARE TEST ORDERABLES Performing Organization Address City/[facility]/ZIP Co de Phone Number [facility] [place] [address] * Gold Tube HOLD (01/25/2024 6:52 AM EST) Gold Hold Hold for Add-on 01/25/2024 9:01 AM EST [facility] Blood VENOUS BLOOD SPECIMEN / Unknown Venipuncture / Unknown 01/25/2024 6:52 AM EST 01/25/2024 7:05 AM EST Tor Balbuena MD CHEMISTRY ORDERABL ES Performing Organization Address City/[facility] Co de Phone Number [facility] [place] [address] * Potassium (01/25/2024 6:52 AM EST) Potassium 3.8 3.5 - 5.0 mMol/L 01/25/2024 7:47 AM EST [facility] Blood VENOUS BLOOD SPECIMEN / Unknown Venipuncture / Unknown 01/25/2024 6:52 AM EST 01/25/2024 7:02 AM EST Tor Balbuena MD CHEMISTRY ORDERABL ES Performing Organization Address City/[facility]/ZIP Co de Phone Number [facility] [place] [address] * (ABNORMAL) Alanine Aminotransferase (01/25/2024 6:52 AM EST) Alanine Aminotransferase 108(H) 0 - 55 unit/L 01/25/2024 7:47 AM EST [facility] Blood VENOUS BLOOD SPECIMEN / Unknown Venipuncture / Unknown 01/25/2024 6:52 AM EST 01/25/2024 7:02 AM EST Tor Balbuena MD CHEMISTRY ORDERABL ES Performing Organization Address [facility]/ZIP Co de Phone Number [facility] [place] [address] * (ABNORMAL) Aspartate Aminotransferase (01/25/2024 6:52 AM EST) Aspartate Aminotransferase 63(H) <=39 unit/L 01/25/2024 7:47 AM EST [facility] Blood VENOUS BLOOD SPECIMEN / Unknown Venipuncture / Unknown 01/25/2024 6:52 AM EST 01/25/2024 7:02 AM EST Tor Balbuena MD CHEMISTRY ORDERABL ES Performing Organization Address [facility] Co de Phone Number [facility] [place] [address] * POC, GLUCOSE (01/25/2024 3:18 AM EST) Glucometer, POC 179 65 - 199 mg/dL 01/25/2024 3:18 AM EST [facility] Comment:Supplemental ranges: <140 mg/dL before meals <180 mg/dL all other times of the day. Blood CAPILLARY BLOOD / Unknown 01/25/2024 3:18 AM EST 01/25/2024 3:18 AM EST Tor Balbuena MD POINT OF CARE TEST ORDERABLES Performing Organization Address City/[facility]/ZIP Co de Phone Number [facility] [place] [address] * Magnesium (01/25/2024 12:28 AM EST) Magnesium 0.83 0.69 - 1.07 mMol/L 01/25/2024 1:07 AM EST [facility] Blood VENOUS BLOOD SPECIMEN / Unknown Venipuncture / Unknown 01/25/2024 12:28 AM EST 01/25/2024 12:39 AM EST Tor Balbuena MD CHEMISTRY ORDERABL ES [facility] [place] [address] * (ABNORMAL) Phosphorus (01/25/2024 12:28 AM EST) Phosphorus 2.4(L) 2.5 - 4.5 mg/dL 01/25/2024 1:07 AM EST [facility] Blood VENOUS BLOOD SPECIMEN / Unknown Venipuncture / Unknown 01/25/2024 12:28 AM EST 01/25/2024 12:39 AM EST Tor Balbuena MD CHEMISTRY ORDERABL ES Performing Organization Address City/[facility]/ZIP Co de Phone Number [facility] [place] [address] * (ABNORMAL) Comprehensive metabolic panel (01/25/2024 12:28 AM EST) Glucose 203(H) 65 - 199 mg/dL 01/25/2024 5:42 AM EST [facility] Comment:Glucose Concentratio n >=200 mg/dL plus symptoms is consistent with Diabetes Mellitus. Blood Urea Nitrogen 14 10 - 20 mg/dL 01/25/2024 5:42 AM [facility] Creatinine 0.54(L) 0.80 - 1.50 mg/dL 01/25/2024 5:42 AM EST [facility] Sodium 135 135 - 145 mMol/L 01/25/2024 5:42 AM EST [facility] Potassium 01/25/2024 5:42 AM [facility] Comment:Unable to report due to hemolysis. Chloride 105 98 - 107 mMol/L 01/25/2024 5:42 AM [facility] Carbon Dioxide 25 22 - 31 mMol/L 01/25/2024 5:42 AM [facility] Anion Gap 5 5 - 15 mMol/L 01/25/2024 5:42 AM EST [facility] Calcium 7.5(L) 8.5 - 10.5 mg/dL 01/25/2024 5:42 AM EST [facility] Protein, Total 5.0(L) 6.1 - 8.0 g/dL 01/25/2024 5:42 AM [facility] Albumin 2.7(L) 3.2 - 5.2 g/dL 01/25/2024 5:42 AM EST [facility] Aspartate Aminotransferase 01/25/2024 5:42 AM GREATER [...] EST Tor Balbuena MD CHEMISTRY ORDERABL ES [facility] [place] [address] * (ABNORMAL) CBC (with Diff) (01/25/2024 12:28 [...] - 0.10 x10(3)/mc L 01/25/2024 12:44 AM [facility] Immature Gran % 0.3 % 12:44 AM [facility] Immature Gran Absolute <0.04 0.00 - 0.04 x10(3)/mc L 01/25/2024 12:44 AM [facility] Blood VENOUS BLOOD SPECIMEN / Unknown Venipuncture / Unknown 01/25/2024 12:28 AM EST 01/25/2024 12:39 AM EST Tor Balbuena MD HEMATOLOGY ORDERAB LES [facility] [place] [address] * (ABNORMAL) Amylase (01/25/2024 12:28 AM EST) Pathologist [facility] Amylase 8(L) 28 - 100 unit/L 01/25/2024 1:07 AM EST [facility] Blood VENOUS BLOOD SPECIMEN / Unknown Venipuncture / Unknown 01/25/2024 12:28 AM EST 01/25/2024 12:39 AM EST Tor Balbuena MD CHEMISTRY ORDERABL ES Performing Organization Address [facility]/ZIP Co de Phone Number [facility] [place] [address] * POC, GLUCOSE (01/25/2024 12:05 AM EST) [facility] Glucometer, POC 189 65 - 199 mg/dL 01/25/2024 12:05 AM EST [facility] Comment:Supplemental ranges: <140 mg/dL before meals <180 mg/dL all other times of the day. Blood CAPILLARY BLOOD / Unknown 01/25/2024 12:05 AM EST 01/25/2024 12:05 AM EST Tor Balbuena MD POINT OF CARE TEST ORDERABLES Performing Organization Address [facility]/ZIP Co de Phone Number [facility] [place] [address] * EKG 12 Lead (01/24/2024 9:38 PM EST) [facility] Ventricular rate 82 BPM MUSE SYSTEM Atrial Rate 82 BPM MUSE SYSTEM P-R Interval 156 ms MUSE SYSTEM QRS Duration 104 ms MUSE SYSTEM Q-T Interval 388 ms MUSE SYSTEM QTC Calculated (Bezet) 453 ms MUSE SYSTEM Calculated P [place] 41 degrees MUSE SYSTEM Calculated R [place] -29 degrees MUSE SYSTEM Calculated T [place] 28 degrees MUSE SYSTEM INTERPRETATION Normal sinus rhythm Normal ECG When compared with ECG of 18-JUL-2021 20:14, No significant change was found Confirmed by Chinmay Perkins MD ([id number]) on 2024 10:35:50 AM MUSE SYSTEM 01/24/2024 9:38 PM EST 2024 10:35 AM EST Tor Balbuena MD ECG ORDERABLES Performing Organization Address City/[facility] Co de Phone Number MUSE SYSTEM * POC, GLUCOSE (01/24/2024 7:33 PM EST) Glucometer, POC 156 65 - 199 mg/dL 01/24/2024 7:33 PM EST [facility] Comment:Supplemental ranges: <140 mg/dL before meals <180 mg/dL all other times of the day. Blood CAPILLARY BLOOD / Unknown 01/24/2024 7:33 PM EST 01/24/2024 7:34 PM EST Tor Balbuena MD POINT OF CARE TEST ORDERABLES Performing Organization Address [facility] de Phone Number [facility] [place] [id number] * POC, GLUCOSE (01/24/2024 3:49 PM EST) Glucometer, POC 110 65 - 199 mg/dL 01/24/2024 3:49 PM EST [facility] Comment:Supplemental ranges: <140 mg/dL before meals <180 mg/dL all other times of the day. Blood CAPILLARY BLOOD / Unknown 01/24/2024 3:49 PM EST 01/24/2024 3:49 PM EST Tor Balbuena MD POINT OF CARE TEST ORDERABLES Performing Organization Address [facility] Co de Phone Number [facility] [place] [address] * Amylase Level Body Fluid (01/24/2024 1:48 PM EST) Amylase, Fluid 12 unit/L 01/24/2024 2:44 PM EST [facility] Comment:Reference intervals are unavailable for this test in body fluids. Comparison of this result with the concentration in blood serum or plasma is recommended. This test has not been cleared by the [place] FDA. Performance characteristics of this test for the analysis of body fluids were determined by [facility] in accordance with CLIA requirements. This laboratory is qualified under CLIA to perform high-complexity testing. Body Fluid Source HEATHER Fluid 2:44 PM EST [facility] HEATHER Drain 01/24/2024 1:48 PM EST 01/24/2024 1:54 PM EST Tor Balbuena MD BODY FLUIDS AND ST OOLS ORDERABLES [facility] [place] [address] * POC, GLUCOSE (01/24/2024 12:08 PM EST) Glucometer, POC 77 65 - 199 mg/dL 01/24/2024 12:08 PM EST [facility] Comment:Supplemental ranges: <140 mg/dL before meals <180 mg/dL all other times of the day. Blood CAPILLARY BLOOD / Unknown 01/24/2024 12:08 PM EST 01/24/2024 12:09 PM EST Tor Balbuena MD POINT OF CARE TEST ORDERABLES [facility] [place] [address] * POC, GLUCOSE (01/24/2024 9:07 AM EST) Glucometer, POC 69 65 - 199 mg/dL 01/24/2024 9:07 AM EST [facility] Comment:Supplemental ranges: <140 mg/dL before meals <180 mg/dL all other times of the day. Blood CAPILLARY BLOOD / Unknown 01/24/2024 9:07 AM EST 01/24/2024 9:07 AM EST Tor Balbuena MD POINT OF CARE TEST ORDERABLES [facility] [place] [address] * POC, GLUCOSE (01/24/2024 8:36 AM EST) Glucometer, POC 68 65 - 199 mg/dL 01/24/2024 8:36 AM EST [facility] Comment:Supplemental ranges: <140 mg/dL before meals <180 mg/dL all other times of the day. Blood CAPILLARY BLOOD / Unknown 01/24/2024 8:36 AM EST 01/24/2024 8:36 AM EST Tor Balbuena MD POINT OF CARE TEST ORDERABLES [facility] [place] [address] * (ABNORMAL) POC, GLUCOSE (01/24/2024 8:07 AM EST) Glucometer, POC 57(L) 65 - 199 mg/dL 01/24/2024 8:07 AM EST [facility] Comment:Supplemental ranges: <140 mg/dL before meals <180 mg/dL all other times of the day. Blood CAPILLARY BLOOD / Unknown 01/24/2024 8:07 AM EST 01/24/2024 8:07 AM EST Tor Balbuena MD POINT OF CARE TEST ORDERABLES [facility] [place] [address] * POC, GLUCOSE (01/24/2024 6:08 AM EST) Glucometer, POC 74 65 - 199 mg/dL 01/24/2024 6:08 AM EST [facility] Comment:Supplemental ranges: <140 mg/dL before meals <180 mg/dL all other times of the day. Blood CAPILLARY BLOOD / Unknown 01/24/2024 6:08 AM EST 01/24/2024 6:08 AM EST Tor Balbuena MD POINT OF CARE TEST ORDERABLES Performing Organization Address City/[facility]/ZIP Co de Phone Number [facility] [place] [address] * Prepare RBC (01/24/2024 4:07 AM EST) Status Information Transfused [facility] Product Identification RBC [facility] Unit [facility] [id number] [facility] Product Code [id number] [facility] Unit Blood Type OPOS [facility] Specimen Expiration Date [facility] Volulme 287 [facility] Issue Date / Time [facility] Status Information Returned [facility] Product Identification RBC [facility] Unit Number [id number] [facility] Product Code [id number] [facility] Unit Blood Type OPOS [facility] Specimen Expiration Date [facility] Volulme 350 [facility] Issue Date / Time [facility] Blood 01/23/2024 3:2 5 PM EST Shaheen Cody MD BLOOD BANK PRODUCT O RDERABLES Performing Organization Address [facility] Co de Phone Number [facility] [place] [address] * POC, GLUCOSE (01/24/2024 4:01 AM EST) Glucometer, POC 73 65 - 199 mg/dL 01/24/2024 4:02 AM EST [facility] Comment:Supplemental ranges: <140 mg/dL before meals <180 mg/dL all other times of the day. Blood CAPILLARY BLOOD / Unknown 01/24/2024 4:01 AM EST 01/24/2024 4:02 AM EST Tor Balbuena MD POINT OF CARE TEST ORDERABLES Performing Organization Address City/[facility]/ZIP Co de Phone Number [facility] [place] [address] * Prepare RBC (01/24/2024 2:07 AM EST) Status Information Transfused [facility] Product Identification RBC [facility] Unit [facility] [id number] [facility] Product Code [id number] [facility] Unit Blood Type OPOS [facility] Specimen Expiration Date [facility] Volulme 350 [facility] Issue Date / Time [facility] Status [facility] Transfused [facility] Product Identification RBC [facility] Unit [facility] [id number] [facility] Product Code [id number] [facility] Unit Blood Type OPOS [facility] Specimen Expiration Date [facility] Volulme 350 [facility] Issue Date / Time [facility] Blood 01/23/2024 1:0 9 PM EST Shaheen Cody MD BLOOD BANK PRODUCT O RDERABLES Performing Organization Address City/[facility] Co de Phone Number [facility] [place] [address] * POC, GLUCOSE (01/24/2024 1:40 AM EST) Glucometer, POC 82 65 - 199 mg/dL 01/24/2024 1:40 AM EST [facility] Comment:Supplemental ranges: <140 mg/dL before meals <180 mg/dL all other times of the day. Blood CAPILLARY BLOOD / Unknown 01/24/2024 1:40 AM EST 01/24/2024 1:40 AM EST Tor Balbuena MD POINT OF CARE TEST ORDERABLES Performing Organization Address City/[facility]/ZIP Co de Phone Number [facility] [place] [address] * POC, GLUCOSE (01/24/2024 12:10 AM EST) Glucometer, POC 82 65 - 199 mg/dL 01/24/2024 12:10 AM EST [facility] Comment:Supplemental ranges: <140 mg/dL before meals <180 mg/dL all other times of the day. Blood CAPILLARY BLOOD / Unknown 01/24/2024 12:10 AM EST 01/24/2024 12:11 AM EST Tor Balbuena MD POINT OF CARE TEST ORDERABLES Performing Organization Address City/[facility]/ZIP Co de Phone Number [facility] [place] [address] * Magnesium (01/24/2024 12:01 AM EST) Magnesium 0.76 0.69 - 1.07 mMol/L 01/24/2024 12:53 AM EST [facility] Blood VENOUS BLOOD SPECIMEN / Unknown Arterial / Unknown 01/24/2024 12:01 AM EST 01/24/2024 12:23 AM EST Tor Balbuena MD CHEMISTRY ORDERABL ES Performing Organization Address [facility] Co de Phone Number [facility] [place] [address] * Phosphorus (01/24/2024 12:01 AM EST) Phosphorus 4.3 2.5 - 4.5 mg/dL 01/24/2024 12:53 AM EST [facility] Blood VENOUS BLOOD SPECIMEN / Unknown Arterial / Unknown 01/24/2024 12:01 AM EST 01/24/2024 12:23 AM EST Tor Balbuena MD CHEMISTRY ORDERABL ES Performing Organization Address City/[facility] Co de Phone Number [facility] [place] [address] * (ABNORMAL) Comprehensive metabolic panel (01/24/2024 12:01 AM EST) Glucose 86 65 - 199 mg/dL 01/24/2024 12:53 AM EST [facility] Comment:Glucose [...] EST Tor Balbuena MD CHEMISTRY ORDERABL ES [facility] [place] [address] * (ABNORMAL) CBC (with Diff) (01/24/2024 12:01 AM EST) White Blood Cell 7.86 4.00 - 9.50 x10(3)/mc L 01/24/2024 12:31 AM [facility] Red Blood Cell 3.42(L) 4.58 [...] % 0.4 % 01/24/2024 12:31 AM EST [facility] Baso Absolute <0.04 0.00 - 0.10 x10(3)/mc L 01/24/2024 12:31 AM EST [facility] Immature Gran % 0.6 % 12:31 AM [facility] Immature Gran Absolute 0.05(H) 0.00 - 0.04 x10(3)/mc L 01/24/2024 12:31 AM EST [facility] Blood VENOUS BLOOD SPECIMEN / Unknown Arterial / Unknown 01/24/2024 12:01 AM EST 01/24/2024 12:23 AM EST Tor Balbuena [place] [address] * (ABNORMAL) Amylase (01/24/2024 12:01 AM EST) Amylase 16(L) 28 - 100 unit/L 01/24/2024 12:53 AM [facility] Blood VENOUS BLOOD SPECIMEN / Unknown Arterial / Unknown 01/24/2024 12:01 AM EST 01/24/2024 12:23 AM EST Tor Balbuena MD CHEMISTRY ORDERABL ES [facility] [place] [address] * (ABNORMAL) Blood Gas, Arterial POC (01/23/2024 6:59 PM EST) pH, Arterial 7.37 7.35 - 7.45 01/24/2024 6:32 AM EST [facility] PCO2, Arterial 39 35 - 45 mmHg 01/24/2024 6:32 AM [facility] PO2, Arterial 133(H) 85 - 104 mmHg 01/24/2024 6:32 AM EST [facility] Bicarbonate, Arterial 21.7 20.0 - [...] 98 - 107 mmol/L 01/24/2024 6:32 AM [facility] Lactate, Arterial 1.3 0.5 - 2.2 mmol/L 01/24/2024 6:32 AM [facility] IONIZED CALCIUM, ARTERIAL 1.08(L) 1.15 - 1.33 mmol/L 01/24/2024 6:32 AM [facility] Glucose, Arterial 116 65 - 199 mg/dL 01/24/2024 6:32 AM [facility] Comment:Glucose Concentratio n >=200 mg/dL plus symptoms is consistent with Diabetes Mellitus. Blood ARTERIAL BLOOD / Unknown 01/23/2024 6:59 PM EST 01/24/2024 6:32 AM EST Tor Balbuena MD POINT OF CARE TEST ORDERABLES Performing Organization Address [facility] de Phone Number [facility] [place] [address] * POC, GLUCOSE (01/23/2024 6:56 PM EST) Glucometer, POC 131 65 - 199 mg/dL 01/23/2024 6:56 PM EST [facility] Comment:Supplemental ranges: <140 mg/dL before meals <180 mg/dL all other times of the day. Blood CAPILLARY BLOOD / Unknown 01/23/2024 6:56 PM EST 01/23/2024 6:56 PM EST Tor Balbuena MD POINT OF CARE TEST ORDERABLES Performing Organization Address [facility] Phone Number [facility] [place] [address] * Fibrinogen (01/23/2024 5:06 PM EST) Fibrinogen 242 200 - 393 mg/dL 01/23/2024 5:53 PM EST [facility] Comment: A fibrinogen level >100 mg/dL is adequate for hemostasis in most patients without underlying bleeding disorders. Blood VENOUS BLOOD SPECIMEN / Unknown Venipuncture / Unknown 01/23/2024 5:06 PM EST 01/23/2024 5:19 PM EST Tor Balbuena MD HEMATOLOGY ORDERAB LES Performing Organization Address [facility] Co de Phone Number [facility] [place] [address] * APTT (01/23/2024 5:06 PM EST) Partial [...] MD HEMATOLOGY ORDERAB LES Performing Organization Address [facility] Co de Phone Number [facility] [place] [address] * (ABNORMAL) Prothrombin Time (01/23/2024 5:06 PM [...] MD HEMATOLOGY ORDERAB LES Performing Organization Address [facility] Co de Phone Number [facility] [place] [address] * Phosphorus (01/23/2024 5:06 PM EST) Phosphorus 3.9 2.5 - 4.5 mg/dL 01/23/2024 5:59 PM EST [facility] Blood VENOUS BLOOD SPECIMEN / Unknown Venipuncture / Unknown 01/23/2024 5:06 PM EST 01/23/2024 5:19 PM EST Tor Balbuena MD CHEMISTRY ORDERABL ES [facility] [place] [address] * Magnesium (01/23/2024 5:06 PM EST) Pathologist [facility] Magnesium 0.80 0.69 - 1.07 mMol/L 01/23/2024 5:59 PM EST [facility] Blood VENOUS BLOOD SPECIMEN / Unknown Venipuncture / Unknown 01/23/2024 5:06 PM EST 01/23/2024 5:19 PM EST Tor Balbuena MD CHEMISTRY ORDERABL ES Performing Organization Address City/[facility]/ZIP Co de Phone Number [facility] [place] [address] * (ABNORMAL) Comprehensive metabolic panel (01/23/2024 5:06 PM EST) [facility] Glucose 158 65 - 199 mg/dL 01/23/2024 5:59 PM [facility] Comment:Glucose Concentratio n >=200 mg/dL plus symptoms is consistent with Diabetes Mellitus. Blood Urea Nitrogen 16 10 - 20 mg/dL 01/23/2024 5:59 PM [facility] Creatinine 0.62(L) 0.80 - 1.50 mg/dL 01/23/2024 5:59 PM [facility] Sodium 139 [...] - 10.5 mg/dL 01/23/2024 5:59 PM EST [facility] Protein, Total 4.5(L) 6.1 - 8.0 g/dL 01/23/2024 5:59 PM EST [facility] Albumin 3.0(L) 3.2 - 5.2 g/dL 01/23/2024 5:59 PM [facility] Aspartate Aminotransferase 232(H) <=39 unit/L 01/23/2024 5:59 PM EST [facility] Alanine Aminotransferase 167(H) 0 - 55 unit/L 01/23/2024 5:59 PM [facility] Alkaline Phosphatase 188(H) 40 - 130 unit/L 01/23/2024 5:59 PM [facility] Bilirubin, Total 1.5(H) <=1.3 mg/dL 01/23/2024 5:59 PM [facility] Est Glomerular Filtration Rate - Male 100 mL/min/1. 73 m?? 01/23/2024 5:59 PM EST [facility] Comment: [...] EST Tor Balbuena MD CHEMISTRY ORDERABL ES [facility] [place] [address] * (ABNORMAL) CBC (with Diff) (01/23/2024 5:06 PM EST) [facility] White Blood Cell 5.19 4.00 - 9.50 x10(3)/mc L 01/23/2024 5:36 PM [facility] Red Blood Cell 3.50(L) 4.58 - 5.54 x10(6)/mc L 01/23/2024 5:36 PM [facility] Hemoglobin 10.8(L) 13.7 - 16.5 g/dL 01/23/2024 5:36 PM [facility] Hematocrit 31.9(L) 40.5 - 48.5 % 01/23/2024 5:36 PM [facility] Mean Cell Volume 91.1 82.9 - 93.1 fL 01/23/2024 5:36 PM [facility] Mean Cell Hemoglobin 30.9 27.5 - 32.1 pg 01/23/2024 5:36 PM [facility] Mean Cell Hemoglobin Concentration 33.9 32.0 - 35.7 g/dL 01/23/2024 5:36 PM [facility] Platelet 116(L) 145 - 357 [...] - 6.10 x10(3)/mc L 01/23/2024 5:36 PM EST [facility] Lymph % 9.4 % 01/23/2024 5:36 PM EST [facility] Lymph Absolute 0.49(L) 0.90 - 3.20 x10(3)/mc L 01/23/2024 5:36 PM EST [facility] Monocyte % 8.5 % 01/23/2024 5:36 PM EST [facility] Monocyte Absolute 0.44 0.30 - 0.90 x10(3)/mc L 01/23/2024 5:36 PM EST [facility] Eos % 0.2 % 01/23/2024 5:36 PM EST [facility] Eos Absolute <0.04 0.00 - 0.40 x10(3)/mc L 01/23/2024 5:36 PM EST [facility] Basophil % 0.4 % 01/23/2024 5:36 PM EST [facility] Baso Absolute <0.04 0.00 - 0.10 x10(3)/mc L 01/23/2024 5:36 PM EST [facility] Immature Gran % 0.2 % 5:36 PM EST [facility] Immature Gran Absolute <0.04 0.00 - 0.04 x10(3)/mc L 01/23/2024 5:36 PM EST [facility] Blood VENOUS BLOOD SPECIMEN / Unknown Venipuncture / Unknown 01/23/2024 5:06 PM EST 01/23/2024 5:18 PM EST Tor Balbuena MD HEMATOLOGY ORDERAB LES [facility] [place] [address] * (ABNORMAL) Hemoglobin A1c (01/23/2024 5:06 PM [...] red blood cell turnover may not be sales representative health insurance of glycemic control. Reference Interval: 4.3 - 5.6% 5.7 - 6.4%: Consistent with prediabetes >=6.5%: Consistent with diagnosis of diabetes mellitus Estimated Average Glucose 01/23/2024 5:49 PM EST [facility] Comment:Estimated Average Gl ucose not appropriate for patients over 70 years of age. Blood VENOUS BLOOD SPECIMEN / Unknown Venipuncture / Unknown 01/23/2024 5:06 PM EST 01/23/2024 5:18 PM EST [facility] - 01/23/2024 5:49 PM EST Estimated average glucose (eAG) is calculated from the equation described in: César SAMPSON, Steven J, Soto R, et al. ??Translating the A1C assay into estimated average glucose values. ??Diabetes Care 2008:31(8):3533-5405. Additional resources are available on the ADA website (diabetes.org). Tor Balbuena MD CHEMISTRY ORDERABL ES [facility] [place] [address] * POC, GLUCOSE (01/23/2024 5:02 PM EST) [facility] Glucometer, POC 162 65 - 199 mg/dL 01/23/2024 5:03 PM EST [facility] Comment:Supplemental ranges: <140 mg/dL before meals <180 mg/dL all other times of the day. Blood CAPILLARY BLOOD / Unknown 01/23/2024 5:02 PM EST 01/23/2024 5:03 PM EST Tor Balbuena MD POINT OF CARE TEST ORDERABLES [facility] [place] [address] * (ABNORMAL) Blood Gas, Arterial POC (01/23/2024 3:20 PM EST) pH, Arterial 7.38 7.35 - 7.45 01/23/2024 3:21 PM EST [facility] PCO2, Arterial 41 35 - 45 [...] 94.0 - 97.0 % 01/23/2024 3:21 PM EST [facility] Carboxyhemoglobin , Arterial 0.3 % 01/23/2024 [...] 3.5 - 5.0 mmol/L 01/23/2024 3:21 PM EST [facility] Chloride, Arterial 105 98 - [...] OF CARE TEST ORDERABLES Performing Organization Address City/State/[facility] Co de Phone Number [facility] [place] [address] * (ABNORMAL) Blood Gas, Arterial POC (01/23/2024 2:04 PM EST) pH, Arterial 7.33(L) 7.35 - 7.45 01/23/2024 2:05 PM [facility] PH Corrected, Arterial 7.33(L) 7.35 [...] CARE TEST ORDERABLES [facility] [place] [address] * (ABNORMAL) Blood Gas, Arterial POC (01/23/2024 [...] PF Ratio 442 Ratio 01/23/2024 12:35 PM [facility] Comment:PF ratio calculated using the non-temperature corrected pO2 result. Patient Temperature 36.3 C 01/23/2024 12:35 PM [facility] IONIZED CALCIUM, ARTERIAL 1.16 1.15 - 1.33 mmol/L 01/23/2024 12:35 PM [facility] Glucose, Arterial 154 65 - 199 mg/dL 01/23/2024 12:35 PM [facility] Comment:Glucose Concentratio n >=200 mg/dL plus symptoms is consistent with Diabetes Mellitus. Blood ARTERIAL BLOOD / Unknown 01/23/2024 12:34 PM EST 01/23/2024 12:35 PM EST Tor Balbuena MD POINT OF CARE TEST ORDERABLES Performing Organization Address [facility] de Phone Number [facility] [place] [address] * POC, GLUCOSE (01/23/2024 11:47 AM EST) Glucometer, POC 156 65 - 199 mg/dL 01/23/2024 11:53 AM EST [facility] Comment:Supplemental ranges: <140 mg/dL before meals <180 mg/dL all other times of the day. Blood CAPILLARY BLOOD / Unknown 01/23/2024 11:47 AM EST 01/23/2024 11:53 AM EST Tor Balbuena MD POINT OF CARE TEST ORDERABLES Performing Organization Address [facility] de Phone Number [facility] [place] [phone] * (ABNORMAL) Surgical Pathology (01/23/2024 11:16 AM EST) Case Report Surgical Pathology Report ? Case: [id number] ? Authorizing Provider: ??Tor Balbuena MD ?Collected: ? 01/23/2024 1116 ? Ordering Location: ? Main Operating Room [place] ?? Received: ?01/23/2024 1403 ? [facility] ? Hospital ? Pathologist: ? Li Lynne MD ? Specimens: ?? A) - Lymph Node, Gastric, common hepatic artery lymph node ? B) - Pancreas, head of pancreas, duodenum, bile duct, gallbladder, antrum ? 4 2:36 PM [facility] Final Diagnosis A. Lymph [...] Pancreas cancer Yellow: pancreatic neck margin FROZEN [place]: SMA Green: bile duct margin Blue: vascular [...] 13.5 cm Lesser Curvature: 7.5 cm Serosa: [place]-red, smooth and glistening. Mucosa: [place] with the usual rugal folds DUODENUM Length/Diameter: 32 x 2.5 cm Serosa: [place]-red, smooth and glistening. Mucosa: [place]-red with the usual folds slightly polypoid proximal to the ampulla.. Ampulla of Vater: Patent, with stent in place. GALLBLADDER Size: 10 x 3 x 3 cm Serosa: [place]-purple and smooth Mucosa: Lumen contents consists of [...] 2 cm ill-defined firm indurated nodular area. Kerrick Kleaner Operator sections in 37 cassettes as follows: B1: FS 1-pancreatic neck margin en face B2: Hepatic duct margin en face B3: Gastric margin en face B4: Duodenum margin en face B5: Kerrick Kleaner Operator gallbladder and cystic duct B6: Cystic duct [...] Comment:Pancreas cancer Yellow: pancreatic neck margin FROZEN [place]: SMA Green: bile duct margin Blue: vascular groove Tor Balbuena MD PATHOLOGY/CYTOLOGY ORDERABLES [facility] [place] [address] * (ABNORMAL) Anaerobic Culture (01/23/2024 10:54 AM EST) Anaerobic Culture Rare Bacteroides fragilis group(A) VITEK 2 METHOD 01/27/2024 3:01 PM EST [facility] Tissue BILE DUCT STRUCTURE / Unknown 01/23/2024 10:54 AM EST Comment:Pancreatic cancer Tor Balbuena MD MICROBIOLOGY - GEN ERAL ORDERABLES [facility] [place] [address] * Tissue Culture, Aerobic Only (01/23/2024 10:54 [...] GEN ERAL ORDERABLES [facility] [place] [address] * (ABNORMAL) Blood Gas, Arterial POC (01/23/2024 [...] , Arterial 0.2 % 01/23/2024 10:44 AM EST [facility] Comment: Nonsmokers: 0.5-1.5% COHB ?? [...] 1.15 - 1.33 mmol/L 01/23/2024 10:44 AM [facility] Glucose, Arterial 193 65 - 199 mg/dL 01/23/2024 10:44 AM [facility] Comment:Glucose Concentratio n >=200 mg/dL plus symptoms is consistent with Diabetes Mellitus. Blood ARTERIAL BLOOD / Unknown 01/23/2024 10:43 AM EST 01/23/2024 10:44 AM EST Tor Balbuena MD POINT OF CARE TEST ORDERABLES [facility] [place] [address] * POC, GLUCOSE (01/23/2024 9:27 AM EST) [facility] Glucometer, POC 194 65 - 199 mg/dL 01/23/2024 9:27 AM EST [facility] Comment:Supplemental ranges: <140 mg/dL before meals <180 mg/dL all other times of the day. Blood CAPILLARY BLOOD / Unknown 01/23/2024 9:27 AM EST 01/23/2024 9:27 AM EST Tor Balbuena MD POINT OF CARE TEST ORDERABLES [facility] [place] [address] * ABORH RECHECK (PATIENT HISTORY FOUND) (01/23/2024 8:51 AM EST) [facility] ABORH Recheck Progress Complete 01/23/2024 11:01 AM EST [facility] Blood VENOUS BLOOD SPECIMEN / Unknown 01/23/2024 8:51 AM EST 01/23/2024 9:07 AM EST Tor Balbuena MD BLOOD BANK LAB ORD ERABLES [facility] [place] [address] * Type and screen ([facility]CGP/NATO) (01/23/2024 8:51 AM EST) [facility] ABORH Type O POSITIVE 01/23/2024 10:26 AM EST [facility] PATIENT HISTORY Found 01/23/2024 10:26 AM EST [facility] Expires at 2359 on: 2024 01/23/2024 10:26 AM EST [facility] ANTIBODY SCREEN AUTOMATED Negative 01/23/2024 10:26 AM EST [facility] T&S only valid at [facility] 01/23/2024 10:26 AM EST [facility] Blood VENOUS BLOOD SPECIMEN / Unknown 01/23/2024 8:51 AM EST 01/23/2024 9:07 AM EST Comment:Pre-op diagnosis: PANCREAS CANCER Narrative [facility] - 01/23/2024 10:26 AM EST This Type and Screen result is only valid at the [facility] Tor Balbuena MD BLOOD BANK LAB ORD ERABLES [facility] [place] [address] * (ABNORMAL) Blood Gas, Arterial POC (01/23/2024 8:28 AM EST) pH, Arterial 7.42 7.35 - 7.45 01/23/2024 8:29 AM [facility] PH Corrected, Arterial 7.45 7.35 - 7.45 01/23/2024 8:29 AM [facility] PCO2, Arterial 36 35 - 45 mmHg 01/23/2024 8:29 AM [facility] PCO2 Corrected, Arterial 34(L) 35 - 45 mmHg 01/23/2024 8:29 AM [facility] PO2, Arterial 294(H) 85 - 104 mmHg 01/23/2024 8:29 AM [facility] PO2 Corrected, Arterial 286.3(H) 85 - 104 mmHg 01/23/2024 8:29 AM [facility] Bicarbonate, Arterial 23.0 20.0 - [...] 1.15 - 1.33 mmol/L 01/23/2024 8:29 AM [facility] Glucose, Arterial 186 65 - 199 mg/dL 01/23/2024 8:29 AM [facility] Comment:Glucose Concentratio n >=200 mg/dL plus symptoms is consistent with Diabetes Mellitus. Blood ARTERIAL BLOOD / Unknown 01/23/2024 8:28 AM EST 01/23/2024 8:29 AM EST Tor Balbuena MD POINT OF CARE TEST ORDERABLES [facility] [place] [address] * XR Fluoro No Rad <1Hr - OR Use (01/23/2024 7:50 AM EST) Narrative Dicom, Auditing User - 01/23/2024 8:08 AM EST This exam is auto-finalizing. No interpretation was done. Cayetano Rodgers MD IMG FLUORO ORDERABL ES * POC, GLUCOSE (01/23/2024 6:58 AM EST) Glucometer, POC 197 65 - 199 mg/dL 01/23/2024 7:01 AM EST [facility] Comment:Supplemental ranges: <140 mg/dL before meals <180 mg/dL all other times of the day. Blood CAPILLARY BLOOD / Unknown 01/23/2024 6:58 AM EST 01/23/2024 7:01 AM EST Tor Balbuena MD POINT OF CARE TEST ORDERABLES [facility] [place] [address] documented in this encounter Visit Diagnoses Not [...] (2.5 mg/mL) 0.25% injection PRN, Starting on Sat01/23/24 at 0912, Until Ammy 01/23/24 at 1959, [...] Given 01/29/2024 9:14 PM EST 30 mg myimub-ljtmozpl-hbmvnkd DR (Creon 24) 24,000-76,000 -120,000 unit per [...] over 4 Hours, Warning Vesicant/Irritant Medication Per coal cager labeling, do not administer or Y-site with [...] dose on Sat01/23/24 at 2100, Until Discontinued, Recovery (Recovery-Hospital Unit), [...] 2045 (Given - Provider: Lilly Yi, AYE) 2016 (Given - Provider: Jonathan Velasco RN) [...] RN)0854 (Given - Provider: Julisa De La O RN)1200 (Due) isosorbide mononitrate CR (Imdur) tablet 30 mg 30 mg, Oral, NIGHTLY, First dose on Sat01/29/24 at 2100, Until Discontinued, DO NOT CRUSH OR OPEN, Routine 2045 (Given - Provider: Lilly Yi RN) 2015 (Given - Provider: Jonathan Velasco RN) ivgjta-rsiunxdw-gsbnlry DR (Creon 24) 24,000-76,000 -120,000 unit per [...] 0820 (Given - Provider: Julisa De La O, AYE) 0851 (Given - Provider: Julisa De La O, AYE) metoclopramide (Reglan) (5 mg/mL) injection 10 mg 10 mg, Intravenous, EVERY 6 HOURS, First dose on Sat01/28/24 at 0715, Until Discontinued, Doses greater than 10mg should be diluted into 50ml NS. 0151 (Given - Provider: Lilly Yi RN)0617 (Given - Provider: Lilly Yi, AYE)162 (Given - Provider: Bruno Frey, AYE)2045 (Given - Provider: Lilly Yi RN) 003 (Given - Provider: Lilly Yi RN)0630 (Given - Provider: Lilly Yi RN)141 (Given - Provider: Julisa De La O RN)2016 (Given - Provider: Jonathan Velasco RN) 0115 (Given - Provider: Jonathan Velasco RN)0851 (Given - Provider: Julisa De La O RN) pantoprazole EC (Protonix) tablet 40 mg 40 mg, Oral, 2 TIMES DAILY, First dose on Sat01/29/24 at 2100, Until Discontinued 935 (Given - Provider: Bruno Frey RN)2045 (Given [...] over 4 Hours, Warning Vesicant/Irritant Medication Per coal cager labeling, do not administer or Y-site with lactated ringers., Indication for (Active or Suspected): GI/Intra-abdominal 0113 (Stopped - Provider: Lilly Yi RN)0451 (New Bag - Provider: Lilly Yi RN)0851 (Stopped - Provider: Bruno Frey RN)162 (New Bag - Provider: Bruno Frey RN)2025 [...] O RN)2027 (New Bag - Provider: Jonathan Velasco RN)2143 (Stopped - Provider: Jonathan Velasco, AYE)2144 (Canceled Entry - Provider: Jonathan Velasco RN [...] RN)2046 (Given - Provider: Lilly Yi RN) 08 (Given - Provider: Julisa De La O RN)2017 (Given - Provider: Jonathan Velasco RN) 0852 (Given - Provider: Julisa De La O RN) tamsulosin (Flomax) capsule 0.4 mg 0.4 mg, Oral, NIGHTLY, First dose on Sat01/24/24 at 2100, Until Discontinued, DO NOT CRUSH OR CHEW, Routine 2045 (Given - Provider: Lilly Yi RN) 2015 (Given - Provider: Jonatahn Velasco, AYE) timoloL (Timoptic) 0.5 % ophthalmic solution 1 drop 1 drop, Right Eye, 2 TIMES DAILY, First dose on 01/27/24 at 1115, Until Discontinued, Routine 0937 (Given - Provider: Bruno Frey RN)2048 (Given - Provider: Lilly Yi RN) 0825 (Given - Provider: Julisa De La O RN)2016 (Given - Provider: Jonathan Velasco, AYE) 0852 (Given - Provider: Julisa De La O RN) PRN Medication Order 01/30/2024 01/31/2024 02/01/2024 [...] Intravenous, DAILY PRN, 1 dose, Starting on 01/31/24 at 1256, Until 02/01/24 at 1452, Line [...] Intravenous, EVERY 8 HOURS PRN, Starting on Sat01/23/24 at 2030, Until 02/01/24 at 1452, Nausea, [...] Intravenous, EVERY 1 MIN PRN, Starting on Sat01/23/24 at 2030, Until 02/01/24 at 1452, flush, [...] Routine documented in this encounter Care Teams Glue Mounter Operator Relationship Specialty Start Date End Date Tristen Hunter MD [address] [place] [address] [place] [address] PCP - General Family Medicine 07/04/23 documented as of this encounter
--- OUTSIDE RECORDS SUMMARY | 2024-03-26 10:33 | XMS_ITS | Encounter Summary ---
Author Organization [facility] [place] [address] Care Team Providers Care Liquor Blender Name Role Phone Tristen Hunter MD Primary Care Provider [phone] Encounter Details Date Type Department Care Team (Latest Contact Info) Description 01/14/2024 4:30 PM EST TH Visit (TeleHealth) [place] [address] Malachi Rothman MD [facility] [place] [address] Malignant neoplasm of prostate Social History Tobacco [...] EST Radiation Oncology Follow up Note: Mr.Philip Adwoa Sadler is a very pleasant, [...] periduodenal or perilesional adenopathy was appreciated Impression: [id number] pancreas head mass lesion with biliary and [...] Claudication Colon adenocarcinoma 2008 recieved chemo in [place] Coronary artery disease Coronary artery dissection CPAP [...] 0.3) performed by Charu Balbuena MD at [facility] OSC PRO ARTHROPLASTY ACETABULAR/PROX FEM PROSTC AGRFT/ALGRFT Left 10/10/2020 TOTAL HIP ARTHROPLASTY - POSTERIOR (WRVU 20.72) performed by Ismael Wu MD at [facility] MAIN OR PRO ARTHROPLASTY ACETABULAR/PROX FEM PROSTC AGRFT/ALGRFT Right 11/17/2021 TOTAL HIP ARTHROPLASTY - POSTERIOR (WRVU 20.72) performed by Ismael Wu MD at [facility] MAIN OR PRO ENDOSCOPIC US EXAM, ESOPH N/A 07/02/2023 UPPER EUS- ENDOSCOPIC ULTRASOUND (WRVU 3.47) performed by Pako Lopez MD at [facility] ENDOSCOPY PRO ERCP, W/REMOVAL STONE, TARYN/PANCR DUCTS 07/02/2023 ERCP W/REMOVAL CALCULI/DEBRIS FROM BILARY/PANCREATIC DUCT(S) (WRVU 6.63) performed by Pako Lopez MD at [facility] ENDOSCOPY PRO ERCP,DIAGNOSTIC N/A 07/02/2023 ERCP (WRVU 5.85) performed by Pako Lopez MD at [facility] ENDOSCOPY PRO EXPLORATION NOT FOLLOWED BY SURG NECK ARTERY Right 07/14/2021 @EXPLORATION NOT FOLLOWED BY SURGICAL REPAIR, ARTERY; NECK (CAROTID OR SUBCLAVIAN) (WRVU 9.19) performed by Basim Barr MD at [facility] MAIN OR PRO INSERT TUNNELED CV CATH W SUBQ PORT, AGE 5 YRS OR OLDER N/A 07/05/2023 MARIO\AMELIA.CATHETER,TUNNELED, WITH SQ PORT OR PUMP OVER 5YR (WRVU 5.79) performed by Maggi Balbuena MD at [facility] OSC PRO LAP, DIAGNOSTIC ABDOMEN N/A 07/05/2023 LAPAROSCOPY, DIAGNOSTIC, ABDOMEN (WRVU 5.14) performed by Charu Balbuena MD at [facility] OSC PRO LASER VAPORIZATION SURGERY PROSTATE, COMPLETE Midline 02/02/2021 CYSTO, LASER TURP (WRVU 12.15) performed by Cayetano Engle MD at [facility] MAIN OR PRO PLACE TRANSCATHETER STENT, CCA W EMBOLIC PROECT Right 07/14/2021 @TRANSCATH INTRAVASCULAR STENT,CAROTID,PERC,W\EMBOLIC PROT. (WRVU 18) performed by Basim Barr MD at [facility] MAIN OR Medications 01/08/24 1306 Medication Sig Taking? lkhdzc-rhqiqcwj-iswsvzp DR (Creon 24) 24,000-76,000 -120,[address] [...] Take 20 mg by mouth daily. 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 Tobacco Use Smoking status: Former Current packs/day: [...] 9:30 AM EST Office Visit Hematology/Oncology at [address] [phone] Cl Hess MD [facility] [place] [address] [place] [address] 04/09/2024 10:00 AM EST Infusion Hematology Oncology at [address] [phone] 04/23/2024 9:30 AM EST Office Visit Hematology/Oncology at [address] [phone] Cl Hess MD [facility] [place] [address] [address] [place] [address] 04/23/2024 10:00 AM EST Infusion Hematology Oncology at [address] [phone] 05/18/2024 4:30 PM EDT TH Visit (TeleHealth) [place] [address] Malachi Rothman MD [facility] [place] [address] 09/24/2024 9:00 AM EDT Office Visit Radiation Oncology at [address] [phone] Ping Moore PA [facility] [address] [place] [address] documented as of this encounter Visit Diagnoses Diagnosis Malignant neoplasm of prostate documented in this encounter Care Teams Liquor Blender Relationship Specialty Start Date End Date Tristen Hunter MD [address] [place] [address] [place] [address] PCP - General Family Medicine 07/04/23 documented as of this encounter
--- OUTSIDE RECORDS SUMMARY | 2024-03-26 10:33 | XMS_ITS | Encounter Summary ---
Author Organization [facility] [place] [address] Care Team Providers Care Lead Scientist Name Role Phone Tristen Hunter MD Primary Care Provider [phone] Reason for Visit * Reason Comments Follow-up Encounter Details Date Type Department Care Team (Late st Contact Info) Description 12/17/2023 2:30 PM EDT Office [place] [address] Charu Balbuena MD [facility] [place] [address] Malignant neoplasm of head of pancreas Social History Tobacco Use Types Packs/Day Years Used Date Smoking Tobacco: Former Cigarettes 30 1 3 1992 Smokeless Tobacco: Never Alcohol Use Standard Drinks/Week Comments Yes 7 (1 standard drink = 0.6 oz pur e alcohol) [facility] Utilities Answer Date Recorded In the past 12 months has [employer] electric, gas, oil, or water company threatened [...] Sadler is a 73 year old from [place], [place]. 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 His history is summarized below: 73 yo, h/o multiple medical problems as above, including colon cancer (resected in 2008), prostate cancer (s/p androgen deprivation and RT), ASCVD (sp 3v CABG), PVDz s/p carotid endarterectomy, priorCVA, DM and others. 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 While in [facility], he presented with chest pain and SOB [...] at the GI tumor board. Down to [place] of the group down there felt that [...] showed no evidence of metastatic disease. 8 [place] Mediport was placed successfully. 07/12/2023 he initiated [...] 0.3) performed by Charu Balbuena MD at [facility] OSC PRO ARTHROPLASTY ACETABULAR/PROX FEM PROSTC AGRFT/ALGRFT Left 10/10/2020 TOTAL HIP ARTHROPLASTY - POSTERIOR (WRVU 20.72) performed by Ismael Wu MD at [facility] MAIN OR PRO ARTHROPLASTY ACETABULAR/PROX FEM PROSTC AGRFT/ALGRFT Right 11/17/2021 TOTAL HIP ARTHROPLASTY - POSTERIOR (WRVU 20.72) performed by Ismael Wu MD at [facility] MAIN OR PRO ENDOSCOPIC US EXAM, ESOPH N/A 07/02/2023 UPPER EUS- ENDOSCOPIC ULTRASOUND (WRVU 3.47) performed by Pako Lopez MD at [facility] ENDOSCOPY PRO ERCP, W/REMOVAL STONE, TARYN/PANCR DUCTS 07/02/2023 ERCP W/REMOVAL CALCULI/DEBRIS FROM BILARY/PANCREATIC DUCT(S) (WRVU 6.63) performed by Pako Lopez MD at [facility] ENDOSCOPY PRO ERCP,DIAGNOSTIC N/A 07/02/2023 ERCP (WRVU 5.85) performed by Pako Lopez MD at [facility] ENDOSCOPY PRO EXPLORATION NOT FOLLOWED BY SURG NECK ARTERY Right 07/14/2021 @EXPLORATION NOT FOLLOWED BY SURGICAL REPAIR, ARTERY; NECK (CAROTID OR SUBCLAVIAN) (WRVU 9.19) performed by Basim Barr MD at [facility] MAIN OR PRO INSERT TUNNELED CV CATH W SUBQ PORT, AGE 5 YRS OR OLDER N/A 07/05/2023 MARIO\AMELIA.CATHETER,TUNNELED, WITH SQ PORT OR PUMP OVER 5YR (WRVU 5.79) performed by Maggi Balbuena MD at [facility] OSC PRO LAP, DIAGNOSTIC ABDOMEN N/A 07/05/2023 LAPAROSCOPY, DIAGNOSTIC, ABDOMEN (WRVU 5.14) performed by Charu Balbuena MD at [facility] OSC PRO LASER VAPORIZATION SURGERY PROSTATE, COMPLETE Midline 02/02/2021 CYSTO, LASER TURP (WRVU 12.15) performed by Cayetano Engle MD at [facility] MAIN OR PRO PLACE TRANSCATHETER STENT, CCA W EMBOLIC PROECT Right 07/14/2021 @TRANSCATH INTRAVASCULAR STENT,CAROTID,PERC,W\EMBOLIC PROT. (WRVU 18) performed by Basim Barr MD at [facility] MAIN OR Medications: djxtof-opzctfmd-egqluna (Creon 24) 24,000-76,000 -120,[address] capsule tamsulosin (Flomax) 0.4 mg capsule ondansetron (Zofran) 8 mg tablet prochlorperazine (Compazine) 10 mg tablet Insulin Fiasp FlexTouch U-100 100 unit/mL (3 mL) Insulin Pen Insulin Tresiba FlexTouch U-100 100 unit/mL (3 mL) Insulin Pen chlorthalidone (Hygroton) 25 mg tablet omeprazole (PriLOSEC) [address] capsule omega 8-ofi-udj-fish oil 250-350-1,000 mg Capsule amLODIPine (Norvasc) 10 [...] procedure at [facility] in [place]: shaking Has tolerated [...] AM EST Office Visit Hematology/Oncology at [address] [phone] Cl Hess MD [facility] [place] [address] Yessi Renee APRN [address] [place] [address] HEMATOLOGY AND ONCOLOGY [place], [place] [address] 04/09/2024 10:00 AM EST Infusion Hematology Oncology at [address] [phone] 04/23/2024 9:30 AM EST Office Visit Hematology/Oncology at [address] [phone] Cl Hess MD [facility] [place] [address] Yessi Renee APRN [address] [place] [address] DR HEMATOLOGY AND ONCOLOGY [place], [place] [address] 04/23/2024 10:00 AM EST Infusion Hematology Oncology at [address] [phone] 05/18/2024 4:30 PM EDT TH Visit (TeleHealth) [place] [address] Malachi Rothman MD [facility] [place] [address] 09/24/2024 9:00 AM EDT Office Visit Radiation Oncology at [address] [phone] Ping Moore PA [facility] DR HEMATOLOGY [place] [address] documented as of this encounter Visit Diagnoses Diagnosis Malignant neoplasm of head of pancreas documented in this encounter Care Teams Lead Scientist Relationship Specialty Start Date End Date Tristen Hunter MD [address] [place] [address] [place] [address] PCP - General Family Medicine 07/04/23 documented as of this encounter
--- OUTSIDE RECORDS SUMMARY | 2024-03-26 10:33 | XMS_ITS | Encounter Summary ---
Author Organization [facility] [place] [address] Care Team Providers Care Preforms Laminator Name Role Phone Tristen Hunter MD Primary Care Provider [phone] Encounter Details Date Type Department Care Team (Late st Contact Info) Description 11/29/2023 Orders [place] [address] Pako Lopez MD [facility] [place] [address] Biliary obstruction Social History Tobacco Use Types Packs/Day Years Used Date Smoking Tobacco: Former Cigarettes 4 30 1 963 - 1992 Smokeless Tobacco: Never Alcohol Use Standard Drinks/Week Comments Yes 7 (1 standard drink = 0.6 oz pur e alcohol) [facility] Utilities Answer Date Recorded In the past 12 months has [employer] electric, gas, oil, or water company threatened [...] AM EST Office Visit Hematology/Oncology at [address] [phone] Cl Hess MD [facility] [place] [address] Yessi Renee APRN [address] [place] [address] DR HEMATOLOGY [place] [address] 04/09/2024 10:00 AM EST Infusion Hematology Oncology at [address] [phone] 04/23/2024 9:30 AM EST Office Visit Hematology/Oncology at [address] [phone] Cl Hess MD [facility] [place] [address] [address] HEMATOLOGY AND ONCOLOGY [place], [place] [address] 04/23/2024 10:00 AM EST Infusion Hematology Oncology at [address] [phone] 05/18/2024 4:30 PM EDT TH Visit (TeleHealth) [place] [address] Malachi Rothman MD [facility] [place] [address] 09/24/2024 9:00 AM EDT Office Visit Radiation Oncology at [address] [phone] Ping Moore PA [facility] DR [place] [address] documented as of this encounter Visit Diagnoses Diagnosis Biliary obstruction Obstruction of bile duct documented in this encounter Care Teams Preforms Laminator Relationship Specialty Start Date End Date Tristen Hunter MD [address] [place] [address] [place] [address] PCP - General Family Medicine 07/04/23 documented as of this encounter
--- OUTSIDE RECORDS SUMMARY | 2024-03-26 10:33 | XMS_ITS | Encounter Summary ---
[place] [address] Care Team Providers Care Manager Of Compliance Name Role Phone Tristen Hunter MD Primary Care Provider [phone] Encounter Details Date Type Department Care Team (Latest Contact Info) Description 12/17/2023 11:54 AM EDT - 12/17/2023 1:17 PM EDT Hospital Encounter [place]ematology [place] [phone] Malignant neoplasm of head of pancreas Discharge [...] Sig Dispensed Refills Start Date End Date vfgglz-fpjgankt-fgu lase DR (Creon 24) 24,000-76,000 -120,000 unit [...] mg by mouth as needed. 05/20/2023 omega 0-rnl-fdn-fish oil 250-350-1,000 mg Capsule Take 1,000 mg [...] of this encounter Progress Notes * Dalila Delgado RN - 12/17/2023 12:19 PM EDT Patient Name: Wero Sadler Patient Age: 73 y.o. Birthdate: 1950 Admit date: 12/17/2023 Attending Physician: Viola att. providers found Access visit. See MAR and/or flowsheet. documented in this encounter Plan of Treatment Upcoming Encounters Date Type Department Care Team (Late st Contact Info) Description 04/09/2024 9:30 AM EST Office Visit Hematology/Oncology at [address] [phone] Cl Hess MD [facility] [place] [address] [address] HEMATOLOGY AND ONCOLOGY [place], [place] [address] 04/09/2024 10:00 AM EST Infusion Hematology Oncology at [address] [phone] 04/23/2024 9:30 AM EST Office Visit Hematology/Oncology at [address] [phone] Cl Hess MD [facility] [address] [address] [place] [address] 04/23/2024 10:00 AM EST Infusion Hematology Oncology at [address] [phone] 05/18/2024 4:30 PM EDT TH Visit (TeleHealth) [place] [address] Malachi Rothman MD [facility] [place] [address] 09/24/2024 9:00 AM EDT Office Visit Radiation Oncology at [address] [phone] Ping Moore PA [facility] DR [place] [address] documented as of this encounter Procedures Procedure [...] 41.6(H) <=35.0 units/mL 12/17/2023 5:03 PM EDT [facility] Comment:This result was gene rated using a Danni Lita immunoassay. Results obtained from other methods or manufacturers cannot be used interchangeably with this method. Blood VENOUS BLOOD SPECIMEN / Unknown Mediport Line / Unknown 12/17/2023 12:18 PM EDT 12/17/2023 12:27 PM EDT Cl Hess MD CHEMISTRY ORDERABLES [facility] [place] [address] * (ABNORMAL) Comprehensive metabolic panel Non-fasting (12/17/2023 12:18 PM EDT) Glucose 207(H) 65 - 199 mg/dL 12/17/2023 1:11 PM EDT [facility] Comment:Glucose Concentratio n >=200 mg/dL plus symptoms is consistent with Diabetes Mellitus. Blood Urea Nitrogen 14 10 - 20 mg/dL 12/17/2023 1:11 PM EDT [facility] Creatinine 0.55(L) 0.80 - 1.50 mg/dL 12/17/2023 1:11 PM EDT [facility] Sodium 137 135 - 145 mMol/L 12/17/2023 1:11 PM EDT [facility] Potassium 3.8 3.5 - 5.0 mMol/L 12/17/2023 1:11 PM EDT [facility] Chloride 103 98 - 107 mMol/L 12/17/2023 1:11 PM EDT [facility] Carbon Dioxide 24 22 - 31 mMol/L 12/17/2023 1:11 PM EDT [facility] Anion Gap 10 5 - 15 mMol/L 12/17/2023 1:11 PM EDT [facility] Calcium 9.0 8.5 - 10.5 mg/dL 12/17/2023 1:11 PM EDT [facility] Protein, Total 6.5 6.1 - 8.0 g/dL 12/17/2023 1:11 PM EDT [facility] Albumin 4.0 3.2 - 5.2 g/dL 12/17/2023 1:11 PM EDT [facility] Aspartate Aminotransferase 21 <=39 unit/L 12/17/2023 1:11 PM EDT [facility] Alanine Aminotransferase 52 0 - 55 unit/L 12/17/2023 1:11 PM EDT [facility] Alkaline Phosphatase 209(H) 40 - 130 unit/L 12/17/2023 1:11 PM EDT [facility] Bilirubin, Total 0.9 <=1.3 mg/dL 12/17/2023 1:11 PM EDT [facility] Est Glomerular Filtration Rate - Male 103 mL/min/1. 73 m?? 12/17/2023 1:11 PM EDT [facility] Comment: This patient's estimated [...] Fasting Status No 12/17/2023 1:11 PM EDT [facility] Blood VENOUS BLOOD SPECIMEN / Unknown Mediport Line / Unknown 12/17/2023 12:18 PM EDT 12/17/2023 12:27 PM EDT Cl Hess MD CHEMISTRY ORDERABLES [facility] [place] [address] * (ABNORMAL) CBC (with Diff) (12/17/2023 12:18 PM EDT) White Blood Cell 4.14 4.00 - 9.50 x10(3)/mc L 12/17/2023 12:36 PM EDT [facility] Red Blood Cell 3.61(L) 4.58 - 5.54 x10(6)/mc L 12/17/2023 12:36 PM EDT [facility] Hemoglobin 11.0(L) 13.7 - 16.5 g/dL 12/17/2023 12:36 PM [facility] Hematocrit 34.8(L) 40.5 - 48.5 % 12/17/2023 12:36 PM [facility] Mean Cell Volume 96.4(H) 82.9 - 93.1 fL 12/17/2023 12:36 PM [facility] Mean Cell Hemoglobin 30.5 27.5 - 32.1 pg 12/17/2023 12:36 PM [facility] Mean Cell Hemoglobin Concentration 31.6(L) 32.0 - 35.7 g/dL 12/17/2023 12:36 PM [facility] Platelet 129(L) 145 - 357 x10(3)/mc L 12/17/2023 12:36 PM [facility] Mean Platelet Volume 9.9 7.6 - 12.9 fL 12/17/2023 12:36 PM [facility] RDW Standard Deviation 50.1(H) 36.0 - 45.0 fL 12/17/2023 12:36 PM [facility] RDW coefficient of variation 14.2(H) 11.4 - 13.8 % 12/17/2023 12:36 PM [facility] NRBC% auto 0.0 % 12/17/2023 12:36 PM [facility] NRBC Absolute <0.01 <0.01 x10(3)/mc L 12/17/2023 12:36 PM [facility] Neutrophil % 65.4 % 12/17/2023 12:36 PM [facility] Neutrophil Absolute (ANC) - Automated 2.71 1.70 - 6.10 x10(3)/mc L 12/17/2023 12:36 PM [facility] Lymph % 19.1 % 12/17/2023 12:36 PM [facility] Lymph Absolute 0.79(L) 0.90 - 3.20 x10(3)/mc L 12/17/2023 12:36 PM EDT [facility] Monocyte % 12.1 % 12/17/2023 12:36 PM EDT [facility] Monocyte Absolute 0.50 0.30 - 0.90 x10(3)/mc L 12/17/2023 12:36 PM EDT [facility] Eos % 2.4 % 12/17/2023 12:36 PM EDT [facility] Eos Absolute 0.10 0.00 - 0.40 x10(3)/mc L 12/17/2023 12:36 PM EDT [facility] Basophil % 0.5 % 12/17/2023 12:36 PM EDT [facility] Baso Absolute <0.04 0.00 - 0.10 x10(3)/mc L 12/17/2023 12:36 PM EDT [facility] Immature Gran % 0.5 % 12:36 PM EDT [facility] Immature Gran Absolute <0.04 0.00 - 0.04 x10(3)/mc L 12/17/2023 12:36 PM EDT [facility] Blood VENOUS BLOOD SPECIMEN / Unknown Mediport Line / Unknown 12/17/2023 12:18 PM EDT 12/17/2023 12:27 PM EDT Cl Hess MD HEMATOLOGY ORDERABLE S [facility] [address] documented in this encounter Visit Diagnoses Diagnosis Malignant neoplasm of head of pancreas documented in this encounter Care Teams Manager Of Compliance Relationship Specialty Start Date End Date Tristen Hunter MD [address] [place] [address] [place] [address] PCP - General Family Medicine 07/04/23 documented as of this encounter
--- OUTSIDE RECORDS SUMMARY | 2024-03-26 10:34 | XMS_ITS | Encounter Summary ---
[place] [address] Care Team Providers Care General Forecaster Name Role Phone Tristen Hunter MD Primary Care Provider [phone] Reason for Referral * Diagnostic Test (Routine) - Closed Specialty Diagnoses / Procedures Referred By Marques livingston Referred To Contact Radiology Diagnoses Malignant neoplasm of head of pancreas Procedures CT Chest Abdomen Pelvis w Contrast (Generic) Charu Balbuena MD [facility] DR [place] [address] [facility] [place] [address] Referral ID Status Reason Start Date Expiration Date V isits Requested Visits Authorized [id number] Closed Specialty Service Requested 11/27/2023 05/26/2025 1 1 Encounter Details Date Type Department Care Team (Late st Contact Info) Description 11/27/2023 Orders [place] [address] Charu Balbuena MD [facility] [place] [address] Malignant neoplasm of head of pancreas Social History Tobacco Use Types Packs/Day Years Used Date Smoking Tobacco: Former Cigarettes 4 30 1 1992 Smokeless Tobacco: Never Alcohol Use Standard Drinks/Week Comments Yes 7 (1 standard drink = 0.6 oz pur e alcohol) [facility] Utilities Answer Date Recorded In [...] AM EST Office Visit Hematology/Oncology at [address] [phone] Cl Hess MD [facility] [place] [address] [address] [place]AT[place]Y [place] [address] 04/09/2024 10:00 AM EST Infusion Hematology Oncology at [address] [phone] 04/23/2024 9:30 AM EST Office Visit Hematology/Oncology at [address] [phone] Cl Hess MD [facility] [place] [address] [address] [place] [address] 04/23/2024 10:00 AM EST Infusion Hematology Oncology at [address] [phone] 05/18/2024 4:30 PM EDT TH Visit (TeleHealth) [place] [address] Malachi Rothman MD [facility] RADIATION [place] [address] 09/24/2024 9:00 AM EDT Office Visit Radiation Oncology at [address] [phone] Ping Moore PA [facility] DR HEMATOLOGY AND [place] [address] documented as of this encounter Results * CT Chest Abdomen Pelvis w Contrast (Generic) (12/17/2023 2:09 PM EDT) [employer] WORKSTATION ID [id number] RAD Anatomical Region Laterality Modality Abdomen, Pelvis [...] who have questions please contact the health gericare aide that requested your imaging first. ? [...] with significant calcification of the aorta and [place] coronary vessels. I do not appreciate any [...] with significant calcification of the aorta and [place] coronary vessels. I do notappreciate any bulky [...] the arterial phase series there is persistent rhy-kxkeqmlccn-sizcezjkpeu along the right and inferior aspect of [...] patients who have questions please contactthe health gericare aide that requested your imaging first. 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
--- OUTSIDE RECORDS SUMMARY | 2024-03-26 10:34 | XMS_ITS | Encounter Summary ---
[place] [address] Care Team Providers Care Contract Sheltered Workshop Supervisor Name Role Phone Tristen Hunter MD [...] Recorded In the past 12 months has [employer] electric, gas, oil, or water company threatened [...] AM EST Office Visit Hematology/Oncology at [address] [phone] Cl Hess MD [facility] [place] [place] [address] Yessi Renee APRN [address] [place] [address] DR HEMATOLOGY AND ONCOLOGY [place], [place] [address] 04/09/2024 10:00 AM EST Infusion Hematology Oncology at [address] [phone] 04/23/2024 9:30 AM EST Office Visit Hematology/Oncology at [address] [phone] Cl Hess MD [facility] [place] [place] [address] Yessi Renee APRN [address] [place] [address] DR HEMATOLOGY AND ONCOLOGY [place], [place] [address] 04/23/2024 10:00 AM EST Infusion Hematology Oncology at [address] [phone] 05/18/2024 4:30 PM EDT TH Visit (TeleHealth) [place] [address] Malachi Rothman MD [facility] [place] [address] 09/24/2024 9:00 AM EDT Office Visit Radiation Oncology at [address] [phone] Ping Moore PA [facility] DR HEMATOLOGY [place] [address] documented as of this encounter Visit Diagnoses Not on filedocumented in this encounter Care Teams Contract Sheltered Workshop Supervisor Relationship Specialty Start Date End Date Tristen Hunter MD [address] [place] [address] [place] [address] PCP - General Family Medicine 07/04/23 documented as of this encounter
--- OUTSIDE RECORDS SUMMARY | 2024-03-26 10:34 | XMS_ITS | Encounter Summary ---
Author Organization [facility] [place] [address] Care Team Providers Care Food Preparation Worker Name Role Phone Tristen Hunter MD Primary Care Provider [phone] Reason for Visit * Reason Comments Procedure SBRT view ray * Consultation (Routine) - Closed Specialty Diagnoses / Procedures Referred By Contac t Referred To Contact Radiation Oncology Diagnoses Malignant neoplasm of prostate Procedures Simulation for Radiation Therapy Planning Malachi Rothman MD [facility] [place] [address] [facility] [place] [address] Referral ID Status Reason Start Date Expiration Date V isits Requested Visits Authorized [id number] Closed Consult, Test & Treat 10/25/2023 10/24/2024 6 6 Encounter Details Date Type Department Care Team (Latest Contact Info) Description 11/18/2023 12:15 PM EDT Procedure visit [place] [address] Malachi Rothman MD [facility] [place] [address] Malignant neoplasm of head of pancreas Social [...] from the original note were not included. [facility] Medicine Radiation Oncology Radiation Oncology SBRT [...] trial: Medications 11/18/23 1139 Medication Sig Taking? hudbow-htvjkwpf-ltnnckr DR (Creon 24) 24,000-76,000 -120,[address] [...] AM Took 15 units 11/15/23 Yes omega 3-szs-obp-fish oil 250-350-1,000 mg Capsule Take 1,000 mg [...] to treat the above diagnosis on the [employer] system. he was evaluated pre- treatment in [...] AM EST Office Visit Hematology/Oncology at [address] [phone] Cl Hess MD [facility] [place] [address] Yessi Renee, [address] HEMATOLOGY AND ONCOLOGY [place], [place] [phone] 04/09/2024 10:00 AM EST Infusion Hematology Oncology at [address] [phone] 04/23/2024 9:30 AM EST Office Visit Hematology/Oncology at [address] [phone] Cl Hess MD [facility] [place] [address] [address] HEMATOLOGY AND ONCOLOGY [place], [place] [phone] 04/23/2024 10:00 AM EST Infusion Hematology Oncology at [address] [phone] 05/18/2024 4:30 PM EDT TH Visit (TeleHealth) [place] [address] Malachi Rothman MD [facility] [place] [address] 09/24/2024 9:00 AM EDT Office Visit Radiation Oncology at [address] [phone] Ping Moore PA [facility] DR [place] [address] documented as of this encounter Visit Diagnoses Diagnosis Malignant neoplasm of head of pancreas documented in this encounter Care Teams Food Preparation Worker Relationship Specialty Start Date End Date Tristen Hunter MD [address] [place] [address] [place] [address] PCP - General Family Medicine 5/2/24 documented as of this encounter
--- OUTSIDE RECORDS SUMMARY | 2024-03-26 10:34 | XMS_ITS | Encounter Summary ---
Author Organization [facility] [place] [address] Care Team Providers Care Drawer In Name Role Phone Tristen Hunter MD Primary Care Provider [phone] Encounter Details Date Type Department Care Team (Late st Contact Info) Description 10/24/2023 Orders Only Hematology [place] [address] Cl Hess MD [facility] [place] [address] Malignant neoplasm of head of pancreas; Pancreatic insufficiency Social History Tobacco Use Types Packs/Day Years Used Date Smoking Tobacco: Former Cigarettes 4 30 1 3 - 1992 Smokeless Tobacco: Never Alcohol Use Standard Drinks/Week Comments Yes 7 (1 standard drink = 0.6 oz pur e alcohol) [facility] Utilities Answer Date Recorded In the past 12 months has [employer] electric, gas, oil, or water company threatened [...] AM EST Office Visit Hematology/Oncology at [address] [phone] Cl Hess MD [facility] [place] [address] [address] HEMATOLOGY AND ONCOLOGY [place], [place] [address] 04/09/2024 10:00 AM EST Infusion Hematology Oncology at [address] [phone] 04/23/2024 9:30 AM EST Office Visit Hematology/Oncology at [address] [phone] Cl Hess MD [facility] [place] [address] [address] HEMATOLOGY AND ONCOLOGY [place], [place] [phone] 04/23/2024 10:00 AM EST Infusion Hematology Oncology at [address] [phone] 05/18/2024 4:30 PM EDT TH Visit (TeleHealth) [place] [address] Malachi Rothman MD [facility] DR [place] [address] 09/24/2024 9:00 AM EDT Office Visit Radiation Oncology at [address] [phone] Ping Moore PA [facility] DR HEMATOLOGY [place] [address] documented as of this encounter Visit Diagnoses Diagnosis Malignant neoplasm of head of pancreas Pancreatic insufficiency Other specified disease of pancreas documented in this encounter Care Teams Drawer In Relationship Specialty Start Date End Date Tristen Hunter MD [address] [place] [address] [place] [address] PCP - General Family Medicine 07/04/23 documented as of this encounter
--- OUTSIDE RECORDS SUMMARY | 2024-03-26 10:34 | XMS_ITS | Encounter Summary ---
Author Organization [facility] Address [facility] [place] [address] Care Team Providers Care Associate Property Manager Name Role Phone Tristen Hunter MD Primary Care Provider [phone] Reason for Visit * Reason Comments Chemotherapy [id number] * Treatment/Therapy Plan Authorization (Routine) - Authorized Specialty Diagnoses / Procedures Referred By Contac t Referred To Contact Diagnoses Malignant neoplasm of prostate Cl Hess MD [facility] [address] Stj Hem Onc Infusion [address] [place] [phone] Referral ID Status Reason Start Date Expiration Date V isits Requested Visits Authorized [id number] Authorized 07/11/2023 07/10/2024 99 107 Encounter Details Date Type Department Care Team (Late st Contact Info) Description 10/18/2023 9:30 AM EDT Infusion Hematology Oncology at [address] [phone] Malignant neoplasm of prostate Social History Tobacco [...] treatment. OBJECTIVE LAB DATA: Labs drawn at [facility] and reviewed and found adequate for treatment. Plt 141; ANC 2 Pre administration: Chemotherapy orders independently verified for drug name, route, and dosage per patient's height, weight and BSA by Larisa Henry RN and [facility]. At time of administration Patient identity verified using patient's name and date of at the chair/bedside by double RN check with XXXX just prior to initiating the patient's home infusion chemotherapy via CADD pump provided by [employer]. Amount infused verified by double RN check after 15 minutes and appropriate amount had infused. 0.7 ccs went in. Pt will be disconnected at [facility] on Saturday10/20/23 at 1210. Confirmed time with Leticia at [facility] infusion. REACTIONS (DESCRIPTION, TIME, INTERVENTION AND EFFECTIVENESS) none ASSESSMENT Wero was awake, alert and tolerated treatment well. Port checked for good blood return and patency per use. PLAN Pump disconnect at [facility] Saturday. Will return for a follow up after his scheduled imaging. documented in this encounter Plan of Treatment Upcoming Encounters Date Type Department Care Team (Late st Contact Info) Description 04/09/2024 9:30 AM EST Office Visit Hematology/Oncology at [address] [phone] Cl Hess MD [facility] [place] [address] Yessi Renee APRN [address] [place] [address] DR HEMATOLOGY AND ONCOLOGY [place], [place] [address] 04/09/2024 10:00 AM EST Infusion Hematology Oncology at [address] [phone] 04/23/2024 9:30 AM EST Office Visit Hematology/Oncology at [address] [phone] Cl Hess MD [facility] [place] [address] Yessi eRnee APRN [address] [place] [address] DR HEMATOLOGY AND ONCOLOGY [place], [place] [id number] 04/23/2024 10:00 AM EST Infusion Hematology Oncology at [address] [phone] 05/18/2024 4:30 PM EDT TH Visit (TeleHealth) [place] [address] Malachi Rothman MD [facility] [place] [address] 09/24/2024 9:00 AM EDT Office Visit Radiation Oncology at [address] [phone] Ping Moore PA [facility] [place] [address] documented as of this encounter Visit Diagnoses [...] 2 minutes is a recommendation from the rope tier. Administer prior to chemotherapy., Routine Given 10/18/2023 [...] mg documented in this encounter Care Teams Associate Property Manager Relationship Specialty Start Date End Date Tristen Hunter MD [address] [place] [address] [place] [address] PCP - General Family Medicine 07/04/23 documented as of this encounter
--- OUTSIDE RECORDS SUMMARY | 2024-03-26 10:34 | XMS_ITS | Encounter Summary ---
Author [place] [address] Care Team Providers Care Aeronautical Inspector Name Role Phone Tristen Hunter MD Primary Care Provider [phone] Reason for Visit * Reason Comments Simulation Consent * Consultation (Routine) - Closed Specialty Diagnoses / Procedures Referred By Contac t Referred To Contact Radiation Oncology Diagnoses Malignant neoplasm of prostate Procedures Simulation for Radiation Therapy Planning Malachi Rothman MD [facility] [place] [address] [facility] [place] [address] Referral ID Status Reason Start Date Expiration Date V isits Requested Visits Authorized [id number] Closed Consult, Test & Treat 10/25/2023 10/24/2024 6 6 Encounter Details Date Type Department Care Team (Latest Contact Info) Description 10/30/2023 11:30 AM EDT Ancillary Appointment [place] [address] Malachi Rothman MD [facility] [address] Malignant neoplasm of prostate Social History Tobacco Use Types Packs/Day Years Used Date Smoking Tobacco: Former Cigarettes 4 30 1 963 - 1992 Smokeless Tobacco: Never Alcohol Use Standard Drinks/Week Comments Yes 7 (1 standard drink = 0.6 oz pur e alcohol) [facility] Utilities Answer Date Recorded [...] AM EST Office Visit Hematology/Oncology at [address] [phone] Cl Hess MD [facility] [place] [address] HEMATOLOGY AND ONCOLOGY [place], [place] [address] 04/09/2024 10:00 AM EST Infusion Hematology Oncology at [address] [phone] 04/23/2024 9:30 AM EST Office Visit Hematology/Oncology at [address] [phone] Cl Hess MD [facility] [place] [address] HEMATOLOGY AND ONCOLOGY [place], [place] [address] 04/23/2024 10:00 AM EST Infusion Hematology Oncology at [address] [phone] 05/18/2024 4:30 PM EDT TH Visit (TeleHealth) [place] [address] Malachi Rothman MD [facility] [place] [address] 09/24/2024 9:00 AM EDT Office Visit Radiation Oncology at [address] [phone] Ping Moore PA [facility] [place] [address] documented as of this encounter Visit Diagnoses Diagnosis Malignant neoplasm of prostate documented in this encounter Care Teams Aeronautical Inspector Relationship Specialty Start Date End Date Tristen Hunter MD [address] [place] [address] [place] [address] PCP - General Family Medicine 07/04/23 documented as of this encounter
--- OUTSIDE RECORDS SUMMARY | 2024-03-26 10:34 | XMS_ITS | Encounter Summary ---
Author Organization [facility] [place] [address] Care Team Providers Care Optical Store Manager Name Role Phone Tristen Hunter MD Primary Care Provider [phone] Encounter Details Date Type Department Care Team (Latest Contact Info) Description 11/29/2023 11:00 AM EDT Clinical Support Hematology/Oncology at [address] [phone] [facility] DR [place] [address] Malignant neoplasm of prostate Social History Tobacco Use Types Packs/Day Years Used Date Smoking Tobacco: Former Cigarettes 4 1 3 - 1992 Smokeless Tobacco: Never Alcohol Use Standard Drinks/Week Comments Yes 7 (1 standard drink = 0.6 oz pur e alcohol) [facility] Utilities Answer Date Recorded In the past 12 months has [employer] electric, gas, oil, or water company threatened [...] AM EST Office Visit Hematology/Oncology at [address] [phone] Cl Hess MD [facility] [place] [address] [address] HEMATOLOGY AND ONCOLOGY [place], [place] [phone] 04/09/2024 10:00 AM EST Infusion Hematology Oncology at [address] [phone] 04/23/2024 9:30 AM EST Office Visit Hematology/Oncology at [address] [phone] Cl Hess MD [facility] [place] [address] [address] HEMATOLOGY AND ONCOLOGY [place], [place] [address] 04/23/2024 10:00 AM EST Infusion Hematology Oncology at [address] [phone] 05/18/2024 4:30 PM EDT TH Visit (TeleHealth) [place] [address] Malachi Rothman MD [facility] [place] [address] 09/24/2024 9:00 AM EDT Office Visit Radiation Oncology at [address] [phone] Ping Moore PA [facility] DR [place] [address] documented as of this encounter Visit Diagnoses Diagnosis Malignant neoplasm of prostate documented in this encounter Care Teams Optical Store Manager Relationship Specialty Start Date End Date Tristen Hunter MD [address] [place] [address] [place] [address] PCP - General Family Medicine 07/04/23 documented as of this encounter
--- OUTSIDE RECORDS SUMMARY | 2024-03-26 10:34 | XMS_ITS | Encounter Summary ---
[place] [address] Care Team Providers Care Dog And Cat Food Cook Name Role Phone Tristen Hunter MD Primary Care Provider [phone] Encounter Details Date Type Department Care Team (Latest Contact Info) Description 11/27/2023 Travel Social History Tobacco Use Types Packs/Day Years Used Date Smoking Tobacco: Former Cigarettes 4 30 1 963 - 1992 Smokeless Tobacco: Never Alcohol Use Standard Drinks/Week Comments Yes 7 (1 standard drink = 0.6 oz pur e alcohol) [facility] Utilities Answer Date Recorded In the past 12 months has [employer] electric, gas, oil, or water company threatened [...] AM EST Office Visit Hematology/Oncology at [address] [phone] Cl Hess MD [facility] [place] [address] Yessi Renee APRN [address] [place] [address] DR HEMATOLOGY AND ONCOLOGY [place], [place] [address] 04/09/2024 10:00 AM EST Infusion Hematology Oncology at [address] [phone] 04/23/2024 9:30 AM EST Office Visit Hematology/Oncology at [address] [phone] Cl Hess MD [facility] [place] [place] [address] Yessi Renee APRN [address] [place] [address] DR HEMATOLOGY AND ONCOLOGY [place], [place] [address] 04/23/2024 10:00 AM EST Infusion Hematology Oncology at [address] [phone] 05/18/2024 4:30 PM EDT TH Visit (TeleHealth) [place] [address] Malachi Rothman MD [facility] [place] [address] 09/24/2024 9:00 AM EDT Office Visit Radiation Oncology at [address] [phone] Ping Moore PA [facility] DR HEMATOLOGY [place] [address] documented as of this encounter Visit Diagnoses Not on filedocumented in this encounter Care Teams Dog And Cat Food Cook Relationship Specialty Start Date End Date Tristen Hunter MD [address] [place] [address] [place] [address] PCP - General Family Medicine 07/04/23 documented as of this encounter
--- OUTSIDE RECORDS SUMMARY | 2024-03-26 10:34 | XMS_ITS | Encounter Summary ---
Author Organization [facility] Address [facility] [place] [address] Care Team Providers Care Hotbed Operator Name Role Phone Tristen Hunter MD Primary Care Provider [phone] Reason for Visit * Reason Onset Date Comments Medication Refill 10/24/2023 Encounter Details Date Type Department Care Team (Late st Contact Info) Description 10/24/2023 Refill Hematology/Oncology at [address] [phone] Cl Hess MD [facility] [place] [address] Malignant neoplasm of head of pancreas; Pancreatic insufficiency Social History Tobacco Use Types Packs/Day Years Used Date Smoking Tobacco: Former Cigarettes 4 30 1 1992 Smokeless Tobacco: Never Alcohol Use Standard Drinks/Week Comments Yes 7 (1 standard drink = 0.6 oz pur e alcohol) [facility] Utilities Answer Date Recorded In the past 12 months has [employer], gas, oil, or water [employer] threatened to shut off services in your [...] was canceled somehow. He will be in [place] tomorrow for an appointment. Is way for him pick it up at the [place] pharmacy? [phone] RN Follow-Up Note Received prescription refill request above. Review of chart suggests that this is an appropriate refill request. Prescription pended and routedto Dr. Hess for review and approval, if agreed. Prescription sending to at [facility] for picker tender helper. Patient called and notified. documented in this encounter Plan of Treatment Upcoming Encounters Date Type Department Care Team (Late st Contact Info) Description 04/09/2024 9:30 AM EST Office Visit Hematology/Oncology at [address] [phone] Cl Hess MD [facility] [place] [address] Yessi Renee [address] HEMATOLOGY [place] [address] 04/09/2024 10:00 AM EST Infusion Hematology Oncology at [address] [phone] 04/23/2024 9:30 AM EST Office Visit Hematology/Oncology at [address] [phone] Cl Hess MD [facility] [place] [address] Yessi Renee [address] HEMATOLOGY [place] [address] 04/23/2024 10:00 AM EST Infusion Hematology Oncology at [address] [phone] 05/18/2024 4:30 PM EDT TH Visit (TeleHealth) [place] [address] Malachi Rothman MD [facility] [place] [address] 09/24/2024 9:00 AM EDT Office Visit Radiation Oncology at [address] [phone] Ping Moore PA [facility] [place] [address] documented as of this encounter Visit Diagnoses Diagnosis Malignant neoplasm of head of pancreas Pancreatic insufficiency Other specified disease of pancreas documented in this encounter Care Teams Hotbed Operator Relationship Specialty Start Date End Date Tristen Hunter MD [address] [place] [address] [place] [address] PCP - General Family Medicine 07/04/23 documented as of this encounter
--- OUTSIDE RECORDS SUMMARY | 2024-03-26 10:34 | XMS_ITS | Encounter Summary ---
Author Organization [facility] [place] [address] Care Team Providers Care Periodicals Clerk Name Role Phone Tristen Hunter MD Primary Care Provider [phone] Encounter Details Date Type Department Care Team (Latest Contact Info) Description 11/01/2023 9:30 AM EDT Clinical Support Hematology/Oncology at [address] [phone] [facility] DR [place] [address] Malignant neoplasm of head of pancreas Social History Tobacco Use Types Packs/Day Years Used Date Smoking Tobacco: Former Cigarettes 1992 Smokeless Tobacco: Never Alcohol Use Standard Drinks/Week Comments Yes 7 (1 standard drink = 0.6 oz pur e alcohol) [facility] Utilities Answer Date Recorded In the past 12 months has [employer] electric, gas, oil, or water company threatened [...] AM EST Office Visit Hematology/Oncology at [address] [phone] Cl Hess MD [facility] [place] [address] Yessi Renee, [address] HEMATOLOGY AND ONCOLOGY [place], [place] [phone] 04/09/2024 10:00 AM EST Infusion Hematology Oncology at [address] [phone] 04/23/2024 9:30 AM EST Office Visit Hematology/Oncology at [address] [phone] Cl Hess MD [facility] [place] [address] [address] HEMATOLOGY AND ONCOLOGY [place] [employer], [place] [address] 04/23/2024 10:00 AM EST Infusion Hematology Oncology at [address] [phone] 05/18/2024 4:30 PM EDT TH Visit (TeleHealth) [place] [address] Malachi Rothman MD [facility] [place] [address] 09/24/2024 9:00 AM EDT Office Visit Radiation Oncology at [address] [phone] Ping Moore PA [facility] DR [place] [address] documented as of this encounter Visit Diagnoses Diagnosis Malignant neoplasm of head of pancreas documented in this encounter Care Teams Periodicals Clerk Relationship Specialty Start Date End Date Tristen Hunter MD [address] [place] [address] [place] [address] PCP - General Family Medicine 07/04/23 documented as of this encounter
--- OUTSIDE RECORDS SUMMARY | 2024-03-26 10:34 | XMS_ITS | Encounter Summary ---
[place] [address] Care Team Providers Care Rv Repairer Name Role Phone Tristen Hunter MD Primary Care Provider [phone] Encounter Details Date Type Department Care Team (Latest Contact Info) Description 10/25/2023 Travel Social History Tobacco Use Types Packs/Day Years Used Date Smoking Tobacco: Former Cigarettes 4 30 1 963 - 1992 Smokeless Tobacco: Never Alcohol Use Standard Drinks/Week Comments Yes 7 (1 standard drink = 0.6 oz pur e alcohol) [facility] Utilities Answer Date Recorded In the past 12 months has [employer], gas, oil, or water company threatened [...] AM EST Office Visit Hematology/Oncology at [address] [phone] Cl Hess MD [facility] [place] [address] Yessi Renee APRN [address] [place] [address] DR HEMATOLOGY AND ONCOLOGY [place], [place] [address] 04/09/2024 10:00 AM EST Infusion Hematology Oncology at [address] [phone] 04/23/2024 9:30 AM EST Office Visit Hematology/Oncology at [address] [phone] Cl Hess MD [facility] [place] [address] Yessi Renee APRN [address] [place] [address] DR HEMATOLOGY AND ONCOLOGY [place], [place] [address] 04/23/2024 10:00 AM EST Infusion Hematology Oncology at [address] [phone] 05/18/2024 4:30 PM EDT TH Visit (TeleHealth) [place] [address] Malachi Rothman MD [facility] [place] [address] 09/24/2024 9:00 AM EDT Office Visit Radiation Oncology at [address] [phone] Ping Moore PA [facility] DR HEMATOLOGY [place] [address] documented as of this encounter Visit Diagnoses Not on filedocumented in this encounter Care Teams Rv Repairer Relationship Specialty Start Date End Date Tristen Hunter MD [address] [place] [address] [place] [address] PCP - General Family Medicine 07/04/23 documented as of this encounter
--- OUTSIDE RECORDS SUMMARY | 2024-03-26 10:34 | XMS_ITS | Encounter Summary ---
Author Organization [facility] [place] [address] Care Team Providers Care Net Applications Developer Name Role Phone Tristen Hunter MD Primary Care Provider [phone] Reason for Visit * Reason Comments Procedure View ray SBRT * Consultation (Routine) - Closed Specialty Diagnoses / Procedures Referred By Contac t Referred To Contact Radiation Oncology Diagnoses Malignant neoplasm of prostate Procedures Simulation for Radiation Therapy Planning Malachi Rothman MD [facility] DR [place] [address] [facility] [place] [address] Referral ID Status Reason Start Date Expiration Date V isits Requested Visits Authorized [id number] Closed Consult, Test & Treat 10/25/2023 10/24/2024 6 6 Encounter Details Date Type Department Care Team (Latest Contact Info) Description 11/21/2023 10:30 AM EDT Procedure visit [place] [address] Malachi Rothman MD [facility] [place] [address] Malignant neoplasm of head of pancreas Social [...] from the original note were not included. [facility] Medicine Radiation Oncology Radiation Oncology [...] trial: Medications 11/21/23 1000 Medication Sig Taking? rvntsv-dxutelex-sliiugc DR (Creon 24) 24,000-76,000 -120,[address] [...] 20 mg by mouth daily. Yes omega 9-pkd-vab-fish oil 250-350-1,000 mg Capsule Take 1,000 mg [...] to treat the above diagnosis on the [employer] system. he was evaluated pre- treatment in [...] AM EST Office Visit Hematology/Oncology at [address] [phone] Cl Hess MD [facility] [place] [address] [address] HEMATOLOGY AND ONCOLOGY [place], [place] [phone] 04/09/2024 10:00 AM EST Infusion Hematology Oncology at [address] [phone] 04/23/2024 9:30 AM EST Office Visit Hematology/Oncology at [address] [phone] Cl Hess MD [facility] [place] [address] [address] HEMATOLOGY AND ONCOLOGY [place], [place] [phone] 04/23/2024 10:00 AM EST Infusion Hematology Oncology at [address] [phone] 05/18/2024 4:30 PM EDT TH Visit (TeleHealth) [place] [address] Malachi Rothman MD [facility] DR [place] [address] 09/24/2024 9:00 AM EDT Office Visit Radiation Oncology at [address] [phone] Ping Moore PA [facility] DR HEMATOLOGY [place] [address] documented as of this encounter Visit Diagnoses Diagnosis Malignant neoplasm of head of pancreas documented in this encounter Care Teams Net Applications Developer Relationship Specialty Start Date End Date Tristen Hunter MD [address] [place] [address] [place] [address] PCP - General Family Medicine 07/04/23 documented as of this encounter
--- OUTSIDE RECORDS SUMMARY | 2024-03-26 10:34 | XMS_ITS | Encounter Summary ---
Author Organization [facility] [place] [address] Care Team Providers Care Manager Of Digital Name Role Phone Tristen Hunter MD Primary Care Provider [phone] Reason for Visit * Reason Comments Procedure SBRT view ray * Consultation (Routine) - Closed Specialty Diagnoses / Procedures Referred By Contac t Referred To Contact Radiation Oncology Diagnoses Malignant neoplasm of prostate Procedures Simulation for Radiation Therapy Planning Malachi Rothman MD [facility] [place] [address] [facility] [place] [address] Referral ID Status Reason Start Date Expiration Date V isits Requested Visits Authorized [id number] Closed Consult, Test & Treat 10/25/2023 10/24/2024 6 6 Encounter Details Date Type Department Care Team (Latest Contact Info) Description 11/15/2023 8:15 AM EDT Procedure [place] [address] Malachi Rothman MD [facility] [place] [address] Malignant neoplasm of head of pancreas Social [...] from the original note were not included. [facility] Medicine Radiation Oncology Radiation Oncology SBRT [...] CT scan findings. Clinical trial: Medications 11/15/23 3616 Medication Sig Taking? pqykxm-vkqpiynf-uvlgmat DR (Creon 24) 24,000-76,000 -120,[address] [...] AM Took 15 units 11/15/23 Yes omega 5-ixx-hcn-fish oil 250-350-1,000 mg Capsule Take 1,000 mg [...] to treat the above diagnosis on the AkuminaT system. he was evaluated pre- treatment in [...] AM EST Office Visit Hematology/Oncology at [address] [phone] Cl Hess MD [facility] [place] [address] Yessi Renee APRN [address] [place] [address] DR [place]ATOLOGY [place] [address] 04/09/2024 10:00 AM EST Infusion Hematology Oncology at [address] [phone] 04/23/2024 9:30 AM EST Office Visit Hematology/Oncology at [address] [phone] Cl Hess MD [facility] [place] [address] [address] HEMATOLOGY AND ONCOLOGY [place], [place] [address] 04/23/2024 10:00 AM EST Infusion Hematology Oncology at [address] [phone] 05/18/2024 4:30 PM EDT TH Visit (TeleHealth) [place] [address] Malachi Rothman MD [facility] [place] [address] 09/24/2024 9:00 AM EDT Office Visit Radiation Oncology at [address] [phone] Ping Moore PA [facility] DR [place] [address] documented as of this encounter Visit Diagnoses Diagnosis Malignant neoplasm of head of pancreas documented in this encounter Care Teams Manager Of Digital Relationship Specialty Start Date End Date Tristen Hunter MD [address] [place] [address] [place] [address] PCP - General Family Medicine 07/04/23 documented as of this encounter
--- OUTSIDE RECORDS SUMMARY | 2024-03-26 10:34 | XMS_ITS | Encounter Summary ---
Author Organization [facility] Address [facility] [place] [address] Care Team Providers Care Human Resources Safety Manager Name Role Phone Tristen Hunter MD Primary Care Provider [phone] Encounter Details Date Type Department Care Team (Late st Contact Info) Description 11/01/2023 9:00 AM EDT Office Visit Hematology/Oncology at [address] [phone] Cl Hess MD [facility] [place] [address] Yessi Renee, ARNOLD [address] [place] [address] [place] [address] Malignant neoplasm of head of pancreas Social History Tobacco Use Types Packs/Day Years Used Date Smoking Tobacco: Former Cigarettes 4 30 1 963 - 1992 Smokeless Tobacco: Never Alcohol Use Standard Drinks/Week Comments Yes 7 (1 standard drink = 0.6 oz pur e alcohol) [facility] Utilities Answer Date Recorded In [...] periduodenal or perilesional adenopathy was appreciated Impression: [id number] pancreas head mass lesion with biliary and [...] metastatic disease/disease progression on interim staging evaluation. [facility] second read of CT c/a/p from [...] no worsening of symptoms. 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 While in [facility], he presented with chest pain and [...] 06/07/23. Pathology was requested for review at [facility] and we also requested [...] mFolfirinox. We reviewed his case at [facility] on 06/18/23. The Ct from [...] is also being followed by our clinical framing consultant, Lupe Velasquez. On 07/12/23 he began neoadjuvant [...] with Dr. Rothman in Radiation Oncology at [facility] on 10/25/23. The plan is for SBRT. Simulation hasbeen done and he anticipates that treatment will start in 1- 2 weeks and he will receive 5 fractions. He did not have labs drawn for today's visit. I will have him get these checked when he is at [facility]. We will plan to check on him in 4 weeks. documented in this encounter Plan of Treatment Upcoming Encounters Date Type Department Care Team (Late st Contact Info) Description 04/09/2024 9:30 AM EST Office Visit Hematology/Oncology at [address] [phone] Cl Hess MD [facility] [place] [address] [place] [address] 04/09/2024 10:00 AM EST Infusion Hematology Oncology at [address] [phone] 04/23/2024 9:30 AM EST Office Visit Hematology/Oncology at [address] [phone] Cl Hess MD [facility] [place] [address] [place] [address] 04/23/2024 10:00 AM EST Infusion Hematology Oncology at [address] [phone] 05/18/2024 4:30 PM EDT TH Visit (TeleHealth) [place] [address] Malachi Rothman MD [facility] [place] [address] 09/24/2024 9:00 AM EDT Office Visit Radiation Oncology at [address] [phone] Ping Moore PA [facility] DR [place]AT[place] [address] Scheduled Orders Name Type Priority Associated Diagnoses Orde r Schedule Carbohydrate Antigen 19-9 Lab Routine Malignant neoplasm of head of pancreas Expected: 11/15/2023 (Approximate), Expires: 05/16/2024 documented as of this encounter Results * (ABNORMAL) Carbohydrate Antigen 19-9 (12/17/2023 12:18 PM EDT) CA 19-9 41.6(H) <=35.0 units/mL 12/17/2023 5:03 PM EDT [facility] Comment:This result was gene rated using a Danni Lita immunoassay. Results obtained from other methods or manufacturers cannot be used interchangeably with this method. Blood VENOUS BLOOD SPECIMEN / Unknown Mediport Line / Unknown 12/17/2023 12:18 PM EDT 12/17/2023 12:27 PM EDT Cl Hess MD CHEMISTRY ORDERABLES [facility] [place] [address] * (ABNORMAL) Comprehensive metabolic panel Non-fasting (12/17/2023 12:18 PM EDT) Glucose 207(H) 65 - 199 mg/dL 12/17/2023 1:11 PM EDT [facility] Comment:Glucose Concentratio n >=200 mg/dL plus symptoms is consistent with Diabetes Mellitus. Blood Urea Nitrogen 14 10 - 20 mg/dL 12/17/2023 1:11 PM EDT [facility] Creatinine 0.55(L) 0.80 - 1.50 mg/dL 12/17/2023 1:11 PM [facility] Sodium 137 135 - 145 mMol/L 12/17/2023 1:11 PM [facility] Potassium 3.8 3.5 - 5.0 mMol/L 12/17/2023 1:11 PM [facility] Chloride 103 98 - 107 mMol/L 12/17/2023 1:11 PM [facility] Carbon Dioxide 24 22 - 31 mMol/L 12/17/2023 1:11 PM [facility] Anion Gap 10 5 - 15 mMol/L 12/17/2023 1:11 PM [facility] Calcium 9.0 8.5 - 10.5 mg/dL 12/17/2023 1:11 PM [facility] Protein, Total 6.5 6.1 - 8.0 g/dL 12/17/2023 1:11 PM [facility] Albumin 4.0 3.2 - 5.2 g/dL 12/17/2023 1:11 PM [facility] Aspartate Aminotransferase 21 <=39 unit/L 12/17/2023 1:11 PM [facility] Alanine Aminotransferase 52 0 - 55 unit/L 12/17/2023 1:11 PM [facility] Alkaline Phosphatase 209(H) 40 - 130 unit/L 12/17/2023 1:11 PM [facility] Bilirubin, Total 0.9 <=1.3 mg/dL 12/17/2023 1:11 PM [facility] Est Glomerular Filtration Rate - Male 103 mL/min/1. 73 m?? 12/17/2023 1:11 PM [facility] Comment: This patient's estimated [...] Fasting Status No 12/17/2023 1:11 PM EDT [facility] Blood VENOUS BLOOD SPECIMEN / Unknown Mediport Line / Unknown 12/17/2023 12:18 PM EDT 12/17/2023 12:27 PM EDT Cl Hess MD CHEMISTRY ORDERABLES [facility] [place] [address] * (ABNORMAL) CBC (with Diff) (12/17/2023 12:18 PM EDT) White Blood Cell 4.14 4.00 - 9.50 x10(3)/mc L 12/17/2023 12:36 PM EDT [facility] Red Blood Cell 3.61(L) 4.58 - 5.54 x10(6)/mc L 12/17/2023 12:36 PM EDT [facility] Hemoglobin 11.0(L) 13.7 - 16.5 g/dL 12/17/2023 12:36 PM T [facility] Hematocrit 34.8(L) 40.5 - 48.5 % 12/17/2023 12:36 PM EDT [facility] Mean Cell Volume 96.4(H) 82.9 - 93.1 fL 12/17/2023 12:36 PM EDT [facility] Mean Cell Hemoglobin 30.5 27.5 - 32.1 pg 12/17/2023 12:36 PM EDT [facility] Mean Cell Hemoglobin Concentration 31.6(L) 32.0 - 35.7 g/dL 12/17/2023 12:36 PM EDT [facility] Platelet 129(L) 145 - 357 x10(3)/mc L 12/17/2023 12:36 PM [facility] Mean Platelet Volume 9.9 7.6 - 12.9 fL 12/17/2023 12:36 PM [facility] RDW Standard Deviation 50.1(H) 36.0 - 45.0 fL 12/17/2023 12:36 PM [facility] RDW coefficient of variation 14.2(H) 11.4 - 13.8 % 12/17/2023 12:36 PM [facility] NRBC% auto 0.0 % 12/17/2023 12:36 PM [facility] NRBC Absolute <0.01 <0.01 x10(3)/mc L 12/17/2023 12:36 PM [facility] Neutrophil % 65.4 % 12/17/2023 12:36 PM [facility] Neutrophil Absolute (ANC) - Automated 2.71 1.70 - 6.10 x10(3)/mc L 12/17/2023 12:36 PM [facility] Lymph % 19.1 % 12/17/2023 12:36 PM [facility] Lymph Absolute 0.79(L) 0.90 - 3.20 x10(3)/mc L 12/17/2023 12:36 PM [facility] Monocyte % 12.1 % 12/17/2023 12:36 PM [facility] Monocyte Absolute 0.50 0.30 - 0.90 x10(3)/mc L 12/17/2023 12:36 PM [facility] Eos % 2.4 % 12/17/2023 12:36 PM [facility] Eos Absolute 0.10 0.00 - 0.40 x10(3)/mc L 12/17/2023 12:36 PM [facility] Basophil % 0.5 % 12/17/2023 12:36 PM EDT [facility] Baso Absolute <0.04 0.00 - 0.10 x10(3)/mc L 12/17/2023 12:36 PM EDT [facility] Immature Gran % 0.5 % 12:36 PM EDT [facility] Immature Gran Absolute <0.04 0.00 - 0.04 x10(3)/mc L 12/17/2023 12:36 PM EDT [facility] Blood VENOUS BLOOD SPECIMEN / Unknown Mediport Line / Unknown 12/17/2023 12:18 PM EDT 12/17/2023 12:27 PM EDT Cl Hess MD HEMATOLOGY ORDERABLE S [facility] [place] [id number] documented in this encounter Visit Diagnoses Diagnosis Malignant neoplasm of head of pancreas documented in this encounter Care Teams Human Resources Safety Manager Relationship Specialty Start Date End Date Tristen Hunter MD [address] [place] [address] [place] [address] PCP - General Family Medicine 07/04/23 documented as of this encounter
--- OUTSIDE RECORDS SUMMARY | 2024-03-26 10:34 | XMS_ITS | Encounter Summary ---
Author Organization [facility] Address [facility] [place] [address] Care Team Providers Care Transfer Operator Name Role Phone Tristen Hunter MD Primary Care Provider [phone] Encounter Details Date Type Department Care Team (Late st Contact Info) Description 11/29/2023 10:30 AM EDT Office Visit Hematology/Oncology at [address] [phone] Cl Hess MD [facility] [place] [address] Yessi Renee, ARNOLD [address] [place] [address] DR [place] [address] Malignant neoplasm of head of [...] encounter Progress Notes * Thelma Yessi A, MERCHANDISE PLANNER - 11/29/2023 10:30 AM EDT Subjective Patient [...] periduodenal or perilesional adenopathy was appreciated Impression: [id number] pancreas head mass lesion with biliary and [...] disease/disease progression on interim staging evaluation. . [facility] second read of CT c/a/p from 05/22/23 [...] he's almost completely blind. He sees his emts soon. 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 While in [facility], he presented with chest pain and [...] 06/07/23. Pathology was requested for review at [facility] and we also requested that images be [...] for mFolfirinox. His case was reviewed at [facility] on 06/18/23. [...] plan was for a blood draw in [facility] once he starts his infusions. If genetic testing showed a BRCA or PALB2 mutation, he may be eligible for a clinical trial looking at theuse olaparib following completion of chemotherapy and surgery to see if this improves RFS. He is also being followed by our clinical logistic manager, Lupe Velasquez. On 07/12/23 he began [...] with Dr. Rothman in Radiation Oncology at [facility] on 10/25/23. He completed SBRT on 11/27/23 [...] AM EST Office Visit Hematology/Oncology at [address] [phone] Cl Hess MD [facility] [place] [address] Yessi Renee [address] [place] [address] 04/09/2024 10:00 AM EST Infusion Hematology Oncology at [address] [phone] 04/23/2024 9:30 AM EST Office Visit Hematology/Oncology at [address] [phone] Cl Hess MD [facility] [place] [address] Yessi Renee [address] [place] [address] 04/23/2024 10:00 AM EST Infusion Hematology Oncology at [address] [phone] 05/18/2024 4:30 PM EDT TH Visit (TeleHealth) [place] [address] Malachi Rothman MD [facility] [place] [address] 09/24/2024 9:00 AM EDT Office Visit Radiation Oncology at [address] [phone] Ping Moore PA [facility] [place] [address] documented as of this encounter Visit Diagnoses Diagnosis Malignant neoplasm of head of pancreas documented in this encounter Care Teams Transfer Operator Relationship Specialty Start Date End Date Tristen Hunter MD [address] [place] [address] [place] [address] PCP - General Family Medicine 07/04/23 documented as of this encounter
--- OUTSIDE RECORDS SUMMARY | 2024-03-26 10:34 | XMS_ITS | Encounter Summary ---
Author Organization [facility] Address [facility] [place] [address] Care Team Providers Care Delivery Lead Name Role Phone Tristen Hunter MD Primary Care Provider [phone] Encounter Details Date Type Department Care Team (Late st Contact Info) Description 10/25/2023 Orders Only Hematology/Oncology at [address] [place] [address] [phone] [facility] [place] [address] Social History Tobacco Use Types Packs/Day Years [...] AM EST Office Visit Hematology/Oncology at [address] [place] [address] [phone] [facility] [place] [address] Yessi Renee APRN [address] [place] [address] DR HEMATOLOGY [place] [address] 04/09/2024 10:00 AM EST Infusion Hematology Oncology at [address] [place] [address] [phone] 04/23/2024 9:30 AM EST Office Visit Hematology/Oncology at [address] [place] [address] [phone] [facility] [place] [address] [address] HEMATOLOGY AND ONCOLOGY [place], [place] [address] 04/23/2024 10:00 AM EST Infusion Hematology Oncology at [address] [place] [address] [phone] 05/18/2024 4:30 PM EDT TH Visit (TeleHealth) [place] [address] [facility] DR [place] [address] 09/24/2024 9:00 AM EDT Office Visit Radiation Oncology at [address] [place] [address] [phone] [facility] DR HEMATOLOGY [place] [address] documented as of this encounter Visit Diagnoses Not on filedocumented in this encounter Care Teams Delivery Lead Relationship Specialty Start Date End Date Tristen Hunter MD [address] [place] [address] [place] [address] PCP - General Family Medicine 07/04/23 documented as of this encounter
--- OUTSIDE RECORDS SUMMARY | 2024-03-26 10:34 | XMS_ITS | Encounter Summary ---
Author Organization [facility] Address [facility] [place] [address] Care Team Providers Care Vision Mixer Name Role Phone Tristen Hunter MD Primary Care Provider Reason for Visit * Reason Comments IV Access * Treatment/Therapy Plan Authorization (Routine) - Authorized Specialty Diagnoses / Procedures Referred By Contac t Referred To Contact Diagnoses Malignant neoplasm of head of pancreas Cl Hess MD [facility] DR ONCOLOGY [address] Stj Hem Onc Infusion [address] [place] [phone] Referral ID Status Reason Start Date Expiration Date V isits Requested Visits Authorized [id number] Authorized 11/01/2023 10/31/2024 99 99 Encounter Details Date Type Department Care Team (Late st Contact Info) Description 11/01/2023 10:00 AM EDT Infusion Hematology Oncology at [address] [phone] Malignant neoplasm of head of pancreas Social [...] Date Type Department Care Team (Late st [facility]) Description 04/09/2024 9:30 AM EST Office Visit Hematology/Oncology at [address] [phone] Cl Hess MD [facility] [place] [address] [address] [place]AT[place] [address] 04/09/2024 10:00 AM EST Infusion Hematology Oncology at [address] [phone] 04/23/2024 9:30 AM EST Office Visit Hematology/Oncology at [address] [phone] Cl Hess MD [facility] [place] [address] [address] [place] [address] 04/23/2024 10:00 AM EST Infusion Hematology Oncology at [address] [phone] 05/18/2024 4:30 PM EDT TH Visit (TeleHealth) [place] [address] Malachi Rothman MD [facility] DR RADIATION ONCOLOGY [address] 09/24/2024 9:00 AM EDT Office Visit Radiation Oncology at [address] [phone] Ping Moore PA [facility] DR HEMATOLOGY AND ONCOLOGY [address] documented as of this encounter Visit Diagnoses [...] Sat11/01/23 at 1032, Until Sat11/01/23 at 1233, Offbearer, Routine Given 11/01/2023 10:32 AM EDT 20 mLs documented in this encounter Care Teams Vision Mixer Relationship Specialty Start Date End Date Tristen Hunter MD [address] [place] [address] [place] [address] PCP - General Family Medicine 07/04/23 documented as of this encounter
--- OUTSIDE RECORDS SUMMARY | 2024-03-26 10:34 | XMS_ITS | Encounter Summary ---
[place] [address] Care Team Providers Care Welder Plastic Name Role Phone Tristen Hunter MD Primary Care Provider [phone] Encounter Details Date Type Department Care Team (Latest Contact Info) Description 10/30/2023 Specialty [place] [phone] Slim De La Cruz, [facility] Refill Coordination - Manual (lipase/protease/amyl ase) for Enzyme Social History Tobacco Use Types Packs/Day Years Used Date Smoking Tobacco: Former Cigarettes 4 30 1 963 - 1992 Smokeless Tobacco: Never Alcohol Use Standard Drinks/Week Comments Yes 7 (1 standard drink = 0.6 oz pur e alcohol) [facility] Utilities Answer Date Recorded In [...] Progress Notes * Slim De La Cruz [facility] - 10/30/2023 8:47 AM EDT Clinical Management Plan: Refill Specialty Pharmacy Consultation; Slim De La Cruz [facility] Comprehensive Medication Management (CMM) Mr. Wero Sadler [...] a dye used during vascular procedure at [facility] in [place]: shaking Has tolerated MRI and CT contrast. Pazopanib Other (See Comments) [id number] Poor Metabolizer. See Clinical Pharmacist Note from 07/04/23 for information. Sacituzumab Govitecan-Hziy Other (See Comments) UGT1A1 Poor Metabolizer. See Clinical Pharmacist Note from 07/04/23 for dosing recommendations. Medication Reconciliation Discrepancies (compared to [facility] med list) No Review Flowsheet 10/30/2023 [...] AM EST Office Visit Hematology/Oncology at [address] [phone] Cl Hess MD [facility] [place] [address] [address] HEMATOLOGY AND ONCOLOGY [place], [place] [phone] 04/09/2024 10:00 AM EST Infusion Hematology Oncology at [address] [phone] 04/23/2024 9:30 AM EST Office Visit Hematology/Oncology at [address] [phone] Cl Hess MD [facility] [place] [address] [address] HEMATOLOGY AND ONCOLOGY [place], [place] [phone] 04/23/2024 10:00 AM EST Infusion Hematology Oncology at [address] [phone] 05/18/2024 4:30 PM EDT TH Visit (TeleHealth) [place] [address] Malachi Rothman MD [facility] [place] [address] 09/24/2024 9:00 AM EDT Office Visit Radiation Oncology at [address] [phone] Ping Moore PA [facility] DR HEMATOLOGY [place] [address] documented as of this encounter Visit Diagnoses Not on filedocumented in this encounter Care Teams Welder Plastic Relationship Specialty Start Date End Date Tristen Hunter MD [address] [place] [address] [place] [address] PCP - General Family Medicine 07/04/23 documented as of this encounter
--- OUTSIDE RECORDS SUMMARY | 2024-03-26 10:34 | XMS_ITS | Encounter Summary ---
Author Organization [facility] Address [facility] [place] [address] Care Team Providers Care Bucket Operator Name Role Phone Tristen Hunter MD Primary Care Provider [phone] Encounter Details Date Type Department Care Team (Late st Contact Info) Description 10/23/2023 1:45 PM EDT Ancillary Procedure Radiology Library at [facility] [place] [phone] Unknown None Social History Tobacco Use Types Packs/Day Years Used Date Smoking Tobacco: Former Cigarettes 4 30 1 963 - 1992 Smokeless Tobacco: Never Alcohol Use Standard Drinks/Week Comments Yes 7 (1 standard drink = 0.6 oz pur e alcohol) [facility] Utilities Answer Date Recorded In the past 12 months has [employer] electric, gas, oil, or water company threatened [...] AM EST Office Visit Hematology/Oncology at [address] [phone] Cl Hess MD [facility] [place] [address] Yessi Renee APRN [address] [place] [address] DR HEMATOLOGY [place] [address] 04/09/2024 10:00 AM EST Infusion Hematology Oncology at [address] [phone] 04/23/2024 9:30 AM EST Office Visit Hematology/Oncology at [address] [phone] Cl Hess MD [facility] [place] [address] Yessi Renee APRN [address] [place] [address] DR HEMATOLOGY AND ONCOLOGY [place], [place] [address] 04/23/2024 10:00 AM EST Infusion Hematology Oncology at [address] [phone] 05/18/2024 4:30 PM EDT TH Visit (TeleHealth) [place] [address] Malachi Rothman MD [facility] [place] [address] 09/24/2024 9:00 AM EDT Office Visit Radiation Oncology at [address] [phone] Ping Moore PA [facility] DR HEMATOLOGY [place] [address] documented as of this encounter Procedures Procedure Name Priority Date/Time Associated Diagnosis Comments FILM LIBRARY STORAGE ONLY CT ABDOMEN AND PELVIS Routine 10/23/2023 1:45 PM EDT documented in this encounter Results * Film Library- Storage Only CT Abdomen & Pelvis (10/23/2023 1:45 PM EDT) 10/31/2023 1:30 PM EDT Narrative RAD - 10/31/2023 1:30 PM EDT This exam is auto-finalizing. It's purpose is for storage only. Unknown IMG FILM LIBRARY ORD ERABLES [place] documented in this encounter Visit Diagnoses Not on filedocumented in this encounter Care Teams Bucket Operator Relationship Specialty Start Date End Date Tristen Hunter MD [address] [place] [address] [place] [address] PCP - General Family Medicine 07/04/23 documented as of this encounter
--- OUTSIDE RECORDS SUMMARY | 2024-03-26 10:34 | XMS_ITS | Encounter Summary ---
[place] [address] Care Team Providers Care Wire Steward Name Role Phone Tristen Hunter MD Primary Care Provider [phone] Encounter Details Date Type Department Care Team [...] Recorded In the past 12 months has [employer] electric, gas, oil, or water company threatened [...] 9:30 AM EST Office Visit Hematology/Oncology at [address] [phone] Cl Hess MD [facility] [place] [address] Yessi Renee APRN [address] [place] [address] DR HEMATOLOGY AND ONCOLOGY [place], [place] [address] 04/09/2024 10:00 AM EST Infusion Hematology Oncology at [address] [phone] 04/23/2024 9:30 AM EST Office Visit Hematology/Oncology at [address] [phone] Cl Hess MD [facility] [place] [address] Yessi Renee APRN [address] [place] [address] DR HEMATOLOGY AND ONCOLOGY [place], [place] [address] 04/23/2024 10:00 AM EST Infusion Hematology Oncology at [address] [phone] 05/18/2024 4:30 PM EDT TH Visit (TeleHealth) [place] [address] Malachi Rothman MD [facility] [place] [address] 09/24/2024 9:00 AM EDT Office Visit Radiation Oncology at [address] [phone] Ping Moore PA [facility] DR [place]EMATOLOGY [place] [address] documented as of this encounter Visit Diagnoses Not on filedocumented in this encounter Care Teams Wire Steward Relationship Specialty Start Date End Date Tristen Hunter MD [address] [place] [address] [place] [address] PCP - General Family Medicine 07/04/23 documented as of this encounter
--- OUTSIDE RECORDS SUMMARY | 2024-03-26 10:34 | XMS_ITS | Encounter Summary ---
Author Organization [facility] [place] [address] Care Team Providers Care Jumpbasting Machine Operator Name Role Phone Tristen Hunter MD Primary Care Provider [phone] Reason for Visit * Reason Comments Procedure SBRT VR * Consultation (Routine) - Closed Specialty Diagnoses / Procedures Referred By Contac t Referred To Contact Radiation Oncology Diagnoses Malignant neoplasm of prostate Procedures Simulation for Radiation Therapy Planning Malachi Rothman MD [facility] [place] [address] [facility] [place] [address] Referral ID Status Reason Start Date Expiration Date V isits Requested Visits Authorized [id number] Closed Consult, Test & Treat 10/25/2023 10/24/2024 6 6 Encounter Details Date Type Department Care Team (Latest Contact Info) Description 11/27/2023 12:00 PM EDT Procedure visit [place] [address] Malachi Rothman MD [facility] [place] [address] Malignant neoplasm of prostate Social History Tobacco Use Types Packs/Day Years Used Date Smoking Tobacco: Former Cigarettes 4 30 1 963 - 1992 Smokeless Tobacco: Never Alcohol Use Standard Drinks/Week Comments Yes 7 (1 standard drink = 0.6 oz pur e alcohol) [facility] Utilities Answer Date Recorded In [...] from the original note were not included. [facility] Medicine Radiation Oncology Radiation Oncology [...] trial: Medications 11/27/23 1116 Medication Sig Taking? tarbon-pztewwvq-xqttwqz DR (Creon 24) 24,000-76,000 -120,[address] [...] 20 mg by mouth daily. Yes omega 4-hid-zoo-fish oil 250-350-1,000 mg Capsule Take 1,000 mg [...] to treat the above diagnosis on the LocalEatsT system. he was evaluated pre- treatment in [...] AM EST Office Visit Hematology/Oncology at [address] [phone] Cl Hess MD [facility] [address] HEMATOLOGY AND ONCOLOGY [place], [place] [phone] 04/09/2024 10:00 AM EST Infusion Hematology Oncology at [address] [phone] 04/23/2024 9:30 AM EST Office Visit Hematology/Oncology at [address] [phone] Cl Hess MD [facility] [place] [address] [address] HEMATOLOGY AND ONCOLOGY [place], [place] [phone] 04/23/2024 10:00 AM EST Infusion Hematology Oncology at [address] [phone] 05/18/2024 4:30 PM EDT TH Visit (TeleHealth) [place] [address] Malachi Rothman MD [facility] [place] [address] 09/24/2024 9:00 AM EDT Office Visit Radiation Oncology at [address] [phone] Ping Moore PA [facility] HEMATOLOGY [place] [address] documented as of this encounter Visit Diagnoses Diagnosis Malignant neoplasm of prostate documented in this encounter Care Teams Jumpbasting Machine Operator Relationship Specialty Start Date End Date Tristen Hunter MD [address] [place] [address] [place] [address] PCP - General Family Medicine 07/04/23 documented as of this encounter
--- OUTSIDE RECORDS SUMMARY | 2024-03-26 10:34 | XMS_ITS | Encounter Summary ---
Author Organization [facility] [place] [address] Care Team Providers Care Prepared Foods Production Team Member Name Role Phone Tristen Hunter MD Primary Care Provider [phone] Reason for Visit * Reason Comments Procedure SBRT VR * Consultation (Routine) - Closed Specialty Diagnoses / Procedures Referred By Contac t Referred To Contact Radiation Oncology Diagnoses Malignant neoplasm of prostate Procedures Simulation for Radiation Therapy Planning Malachi Rothman MD [facility] [place] [address] [facility] [place] [address] Referral ID Status Reason Start Date Expiration Date V isits Requested Visits Authorized [id number] Closed Consult, Test & Treat 10/25/2023 10/24/2024 6 6 Encounter Details Date Type Department Care Team (Latest Contact Info) Description 11/25/2023 8:15 AM EDT Procedure visit [place] [address] Malachi Rothman MD [facility] [place] [address] Malignant neoplasm of head of pancreas Social [...] original note were not included. [facility] Medicine Radiation Oncology Radiation Oncology SBRT Procedure [...] trial: Medications 11/25/23 0810 Medication Sig Taking? zlfhrx-grhjkaxv-cygkhox DR (Creon 24) 24,000-76,000 -120,[address] [...] 20 mg by mouth daily. Yes omega 6-cap-xmq-fish oil 250-350-1,000 mg Capsule Take 1,000 mg [...] to treat the above diagnosis on the TextádogRT system. he was evaluated pre- treatment in [...] AM EST Office Visit Hematology/Oncology at [address] [phone] Cl Hess MD [facility] [place] [address] HEMATOLOGY AND ONCOLOGY [place], [place] [phone] 04/09/2024 10:00 AM EST Infusion Hematology Oncology at [address] [phone] 04/23/2024 9:30 AM EST Office Visit Hematology/Oncology at [address] [phone] Cl Hess MD [facility] [place] [address] HEMATOLOGY AND ONCOLOGY [place], [place] [address] 04/23/2024 10:00 AM EST Infusion Hematology Oncology at [address] [phone] 05/18/2024 4:30 PM EDT TH Visit (TeleHealth) [place] [address] Malachi Rothman MD [facility] [place] [address] 09/24/2024 9:00 AM EDT Office Visit Radiation Oncology at [address] [phone] Ping Moore PA [facility] [place]ATOLOGY [place] [address] documented as of this encounter Visit Diagnoses Diagnosis Malignant neoplasm of head of pancreas documented in this encounter Care Teams Prepared Foods Production Team Member Relationship Specialty Start Date End Date Tristen Hunter MD [address] [place] [address] [place] [address] PCP - General Family Medicine 07/04/23 documented as of this encounter
--- OUTSIDE RECORDS SUMMARY | 2024-03-26 10:34 | XMS_ITS | Encounter Summary ---
[place] [address] Care Team Providers Care Roofer Applicator Name Role Phone Tristen Hunter MD Primary Care Provider [phone] Reason for Referral * Consultation (Routine) - Closed Specialty Diagnoses / Procedures Referred By Marques livingston Referred To Contact Hematology and Oncology Diagnoses Malignant neoplasm of prostate Malignant neoplasm of head of pancreas Malachi Rothman MD [facility] [place] [address] [facility] Hem Onc [address] [place] [address] Referral ID Status Reason Start Date Expiration Date V isits Requested Visits Authorized [id number] Closed Consult, Test & Treat 10/29/2023 10/28/2024 1 1 * Consultation (Routine) - Closed Specialty Diagnoses / Procedures Referred By Contermelinda t Referred To Contact Radiation Oncology Diagnoses Malignant neoplasm of prostate Procedures Simulation for Radiation Therapy Planning Malachi Rothman MD [facility] [place] [address] [facility] [place] [address] Referral ID Status Reason Start Date Expiration Date V isits Requested Visits Authorized [id number] Closed Consult, Test & Treat 10/25/2023 10/24/2024 6 6 Reason for Visit * Reason Comments Radiation Consult * Consultation (Routine) - Closed Specialty Diagnoses / Procedures Referred By Marques livingston Referred To Contact Radiation Oncology Diagnoses Malignant neoplasm of head of pancreas Cl Hess MD [facility] [address] Malachi Rothman MD [facility] DR [place] [address] Referral ID Status Reason Start Date Expiration Date V isits Requested Visits Authorized [id number] Closed Consult, Test & Treat 10/18/2023 10/17/2024 1 1 Encounter Details Date Type Department Care Team (Late st Contact Info) Description 10/25/2023 10:00 AM EDT Office Visit [place] [address] Malachi Rothman MD [facility] DR RADI[place] [address] Malignant neoplasm of prostate; Malignant neoplasm of head of pancreas Social History Tobacco Use Types Packs/Day Years Used Date Smoking Tobacco: Former Cigarettes 4 30 1 1992 Smokeless Tobacco: Never Alcohol Use Standard Drinks/Week Comments Yes 7 (1 standard drink = 0.6 oz pur e alcohol) [facility] Utilities Answer Date Recorded In the past 12 months has [employer], gas, oil, or water company threatened to [...] in the section of Radiation Oncology at [facility] at the request of Dr. Cl Hess [...] periduodenal or perilesional adenopathy was appreciated Impression: [id number] pancreas head mass lesion with biliary and [...] Claudication Colon adenocarcinoma 2008 recieved chemo in [place] Coronary artery disease Coronary artery dissection CPAP [...] 0.3) performed by Charu Balbuena MD at [facility] OSC PRO ARTHROPLASTY ACETABULAR/PROX FEM PROSTC AGRFT/ALGRFT Left 10/10/2020 TOTAL HIP ARTHROPLASTY - POSTERIOR (WRVU 20.72) performed by Ismael Wu MD at [facility] MAIN OR PRO ARTHROPLASTY ACETABULAR/PROX FEM PROSTC AGRFT/ALGRFT Right 11/17/2021 TOTAL HIP ARTHROPLASTY - POSTERIOR (WRVU 20.72) performed by Ismael Wu MD at [facility] MAIN OR PRO ENDOSCOPIC US EXAM, ESOPH N/A 07/02/2023 UPPER EUS- ENDOSCOPIC ULTRASOUND (WRVU 3.47) performed by Pako Lopez MD at [facility] ENDOSCOPY PRO ERCP, W/REMOVAL STONE, TARYN/PANCR DUCTS 07/02/2023 ERCP W/REMOVAL CALCULI/DEBRIS FROM BILARY/PANCREATIC DUCT(S) (WRVU 6.63) performed by Pako Lopez MD at [facility] ENDOSCOPY PRO ERCP,DIAGNOSTIC N/A 07/02/2023 ERCP (WRVU 5.85) performed by Pako Lopez MD at [facility] ENDOSCOPY PRO EXPLORATION NOT FOLLOWED BY SURG NECK ARTERY Right 07/14/2021 @EXPLORATION NOT FOLLOWED BY SURGICAL REPAIR, ARTERY; NECK (CAROTID OR SUBCLAVIAN) (WRVU 9.19) performed by Basim Barr MD at [facility] MAIN OR PRO INSERT TUNNELED CV CATH W SUBQ PORT, AGE 5 YRS OR OLDER N/A 07/05/2023 MARIO\AMELIA.CATHETER,TUNNELED, WITH SQ PORT OR PUMP OVER 5YR (WRVU 5.79) performed by Maggi Balbuena MD at [facility] OSC PRO LAP, DIAGNOSTIC ABDOMEN N/A 07/05/2023 LAPAROSCOPY, DIAGNOSTIC, ABDOMEN (WRVU 5.14) performed by Charu Balbuena MD at [facility] OSC PRO LASER VAPORIZATION SURGERY PROSTATE, COMPLETE Midline 02/02/2021 CYSTO, LASER TURP (WRVU 12.15) performed by Cayetano Engle MD at [facility] MAIN OR PRO PLACE TRANSCATHETER STENT, CCA W EMBOLIC PROECT Right 07/14/2021 @TRANSCATH INTRAVASCULAR STENT,CAROTID,PERC,W\EMBOLIC PROT. (WRVU 18) performed by Basim Barr MD at [facility] MAIN OR Medications 10/25/23 0982 Medication Sig Taking? tamsulosin (Flomax) 0.4 mg capsule Take 1 capsule by mouth nightly. Yes Insulin Fiasp FlexTouch U-100 100 unit/mL (3 mL) Insulin Pen Inject 3 mLs subcutaneously 3 times daily (before meals). Yes Insulin Tresiba FlexTouch U-100 100 unit/mL (3 mL) Insulin Pen 30 units in the AM Yes omega 9-gdv-zsw-fish oil 250-350-1,000 mg Capsule Take 1,000 mg [...] Take 81 mg by mouth daily. 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 Retrospective review from [facility] showed improved long-term survival in patient treated [...] AM EST Office Visit Hematology/Oncology at [address] [phone] Cl Hess MD [facility] [place] [address] Yessi Renee, [address] HEMATOLOGY AND ONCOLOGY [place], [place] [address] 04/09/2024 10:00 AM EST Infusion Hematology Oncology at [address] [phone] 04/23/2024 9:30 AM EST Office Visit Hematology/Oncology at [address] [phone] Cl Hess MD [facility] [place] [address] HEMATOLOGY AND ONCOLOGY [place], [place] [address] 04/23/2024 10:00 AM EST Infusion Hematology Oncology at [address] [phone] 05/18/2024 4:30 PM EDT TH Visit (TeleHealth) [place] [address] Malachi Rothman MD [facility] [place] [address] 09/24/2024 9:00 AM EDT Office Visit Radiation Oncology at [address] [phone] Ping Moore PA [facility] DR HEMATOLOGY [place] [address] Scheduled Orders Name Type Priority Associated Diagnoses [...] pancreas documented in this encounter Care Teams Roofer Applicator Relationship Specialty Start Date End Date Tristen Hunter MD [address] [place] [address] [place] [address] PCP - General Family Medicine 07/04/23 documented as of this encounter
--- OUTSIDE RECORDS SUMMARY | 2024-03-26 10:34 | XMS_ITS | Encounter Summary ---
[place] [address] Care Team Providers Care Automotive Glass Specialist Name Role Phone Tristen Hunter MD Primary Care Provider [phone] Reason for Visit * Diagnostic Test (Routine) - Closed Specialty Diagnoses / Procedures Referred By Contac t Referred To Contact Radiology Diagnoses Malignant neoplasm of head of pancreas Procedures Rad Onc Body Interp Only Malachi Rothman MD [facility] [place] [address] [place] [address] Referral ID Status Reason Start Date Expiration Date V isits Requested Visits Authorized [id number] Closed Specialty Service Requested 10/30/2023 05/01/2025 1 1 Encounter Details Date Type Department Care Team (Latest Contact Info) Description 10/30/2023 12:20 PM EDT Ancillary Procedure [place] [address] Malachi Rothman MD [facility] [place] [address] Malignant neoplasm of head of pancreas Social History Tobacco Use Types Packs/Day Years Used Date Smoking Tobacco: Former Cigarettes 30 1 1992 Smokeless Tobacco: Never Alcohol Use Standard Drinks/Week Comments Yes 7 (1 standard drink = 0.6 oz pur e alcohol) [facility] Utilities Answer Date Recorded In the [...] AM EST Office Visit Hematology/Oncology at [address] [phone] Cl Hess MD [facility] [place] [address] HEMATOLOGY AND ONCOLOGY [place], [place] [address] 04/09/2024 10:00 AM EST Infusion Hematology Oncology at [address] [phone] 04/23/2024 9:30 AM EST Office Visit Hematology/Oncology at [address] [phone] Cl Hess MD [facility] [place] [place] [address] [address] HEMATOLOGY AND ONCOLOGY [place], [place] [address] 04/23/2024 10:00 AM EST Infusion Hematology Oncology at [address] [phone] 05/18/2024 4:30 PM EDT TH Visit (TeleHealth) [place] [address] Malachi Rothman MD [facility] [place] [address] 09/24/2024 9:00 AM EDT Office Visit Radiation Oncology at [address] [phone] Ping Moore PA [facility] DR HEMATOLOGY [place] [address] documented as of this encounter Procedures Procedure Name Priority Date/Time Associated Diagnosis Comments MR RAD ONC BODY INTERP ONLY Routine 10/30/2023 12:49 PM EDT Malignant neoplasm of head of pancreas documented in this encounter Results * MR Rad Onc Body Interp Only (10/30/2023 12:49 PM EDT) [employer] Signature WORKSTATION ID [id number] RAD Anatomical Region Laterality Modality Abdomen Magnetic Resonan [...] who have questions please contact the health spiritual care coordinator that requested your imaging first. ? Electronically signed by: Rafael Ansari DO, [facility] ([phone]), at 10/30/2023 3:26 PM Narrative 10/30/2023 3:26 PM EDT EXAMINATION: CT [...] patients who have questions please contactthe health spiritual care coordinator that requested your imaging first. Electronically signed by: Rafael Ansari DO, [facility]([phone]), at 10/30/2023 3:26 PM Malachi Jonas MD IMG MRI ORDERABLES * CT Rad Onc Body Interp Only (10/30/2023 12:04 PM EDT) WORKSTATION ID [id number] RAD Anatomical Region Laterality Modality Abdomen Computed [...] who have questions please contact the health spiritual care coordinator that requested your imaging first. ? Electronically signed by: Rafael Ansari DO, [facility] ([phone]), at 10/30/2023 3:26 PM Narrative 10/30/2023 3:26 PM EDT EXAMINATION: CT [...] patients who have questions please contactthe health spiritual care coordinator that requested your imaging first. Electronically signed by: Rafael Ansari DO, [facility]([phone]), at 10/30/2023 3:26 PM Malachi Jonas MD IMG OUTSIDE INTERPRE TATION ORDERABLES documented in this encounter Visit Diagnoses Diagnosis Malignant neoplasm of head of pancreas documented in this encounter Care Teams Automotive Glass Specialist Relationship Specialty Start Date End Date Tristen Hunter MD [address] [place] [address] [place] [address] PCP - General Family Medicine 07/04/23 documented as of this encounter
--- OUTSIDE RECORDS SUMMARY | 2024-03-26 10:34 | XMS_ITS | Encounter Summary ---
Author Organization Formerly [facility] Address [facility] [place] [address] Care Team Providers Care Case Sealer Name Role Phone Tristen Hunter MD Primary Care Provider [phone] Encounter Details Date Type Department Care Team (Late st Contact Info) Description 10/23/2023 Interpretation Only Radiology Library at [facility] [place] [phone] Unknown None Social History Tobacco Use Types Packs/Day Years Used Date Smoking Tobacco: Former Cigarettes 4 30 1 963 - 1992 Smokeless Tobacco: Never Alcohol Use Standard Drinks/Week Comments Yes 7 (1 standard drink = 0.6 oz pur e alcohol) [facility] Utilities Answer Date Recorded In the past 12 months has e [employer], gas, oil, or water company threatened to [...] AM EST Office Visit Hematology/Oncology at [address] [phone] Cl Hess MD [facility] [place] [address] Yessi Renee APRN [address] [place] [address] HEMATOLOGY AND ONCOLOGY [place], [place] 84[address] 04/09/2024 10:00 AM EST Infusion Hematology Oncology at [address] [phone] 04/23/2024 9:30 AM EST Office Visit Hematology/Oncology at [address] [phone] Cl Hess MD [facility] [place] [address] Yessi Renee APRN [address] [place] [address] DR [place] [address] 04/23/2024 10:00 AM EST Infusion Hematology Oncology at [address] [phone] 05/18/2024 4:30 PM EDT TH Visit (TeleHealth) [place] [address] Malachi Rothman MD [facility] [place] [address] 09/24/2024 9:00 AM EDT Office Visit Radiation Oncology at [address] [phone] Ping Moore PA [facility] DR [place] [address] documented as of this encounter Procedures Procedure Name Priority Date/Time Associated Diagnosis Comments FILM LIBRARY STORAGE ONLY CT ABDOMEN AND PELVIS Routine 10/23/2023 1:45 PM EDT documented in this encounter Results * Film Library- Storage Only CT Abdomen & Pelvis (10/23/2023 1:45 PM EDT) 10/31/2023 1:30 PM EDT Narrative DH RAD - 10/31/2023 1:30 PM EDT This exam is auto-finalizing. It's purpose is for storage only. Unknown IMG FILM LIBRARY ORD ERABLES [place], [place] documented in this encounter Visit Diagnoses Not on filedocumented in this encounter Care Teams Case Sealer Relationship Specialty Start Date End Date Tristen Hunter MD [address] [place] [address] [place] [address] PCP - General Family Medicine 07/04/23 documented as of this encounter
--- OUTSIDE RECORDS SUMMARY | 2024-03-26 10:34 | XMS_ITS | Encounter Summary ---
[place] [address] Care Team Providers Care Automobile Brakes Bonder Name Role Phone Tristen Hunter MD Primary Care Provider [phone] Encounter Details Date Type Department Care Team (Latest Contact Info) Description 11/25/2023 Travel Social History Tobacco Use Types Packs/Day Years Used Date Smoking Tobacco: Former Cigarettes 4 30 1 963 - 1992 Smokeless Tobacco: Never Alcohol Use Standard Drinks/Week Comments Yes 7 (1 standard drink = 0.6 oz pur e alcohol) [facility] Utilities Answer Date Recorded In the past 12 months has [employer] electric, gas, oil, or water company threatened [...] AM EST Office Visit Hematology/Oncology at [address] [phone] Cl Hess MD [facility] [place] [address] Yessi Renee APRN [address] [place] [address] DR HEMATOLOGY AND ONCOLOGY [place], [place] 2[address] 04/09/2024 10:00 AM EST Infusion Hematology Oncology at [address] [phone] 04/23/2024 9:30 AM EST Office Visit Hematology/Oncology at [address] [phone] Cl Hess MD [facility] [place] [address] Yessi Renee APRN [address] [place] [address] DR HEMATOLOGY AND ONCOLOGY [place], [place] 714779 04/23/2024 10:00 AM EST Infusion Hematology Oncology at [address] [phone] 05/18/2024 4:30 PM EDT TH Visit (TeleHealth) [place] [address] Mlaachi Rothman MD [facility] [place] [address] 09/24/2024 9:00 AM EDT Office Visit Radiation Oncology at [address] [phone] Ping Moore PA [facility] DR [place]AT[place] [address] documented as of this encounter Visit Diagnoses Not on filedocumented in this encounter Care Teams Automobile Brakes Bonder Relationship Specialty Start Date End Date Tristen Hunter MD [address] [place] [address] [place] [address] PCP - General Family Medicine 07/04/23 documented as of this encounter
--- OUTSIDE RECORDS SUMMARY | 2024-03-26 10:34 | XMS_ITS | Encounter Summary ---
[place] [address] Care Team Providers Care Fiberglass Dowel Drawing Operator Name Role Phone Tristen Hunter MD Primary Care Provider [phone] Encounter Details Date Type Department Care Team [...] Recorded In the past 12 months has [employer] electric, gas, oil, or water company threatened [...] AM EST Office Visit Hematology/Oncology at [address] [place] [address] [phone] Cl Hess MD [facility] [place] [address] Yessi Renee APRN [address] [place] [address] DR HEMATOLOGY AND ONCOLOGY [place], [place] 9[address] 04/09/2024 10:00 AM EST Infusion Hematology Oncology at [address] [place] [address] [phone] 04/23/2024 9:30 AM EST Office Visit Hematology/Oncology at [address] [place] [address] [phone] Cl Hess MD [facility] [place] [address] Yessi Renee APRN [address] [place] [address] DR HEMATOLOGY AND ONCOLOGY [place], [place] [address] 04/23/2024 10:00 AM EST Infusion Hematology Oncology at [address] [phone] 05/18/2024 4:30 PM EDT TH Visit (TeleHealth) [place] [address] Malachi Rothman MD [facility] [place] [address] 09/24/2024 9:00 AM EDT Office Visit Radiation Oncology at [address] [place] [address] [phone] Ping Moore PA [facility] DR [place] [address] documented as of this encounter Visit Diagnoses Not on filedocumented in this encounter Care Teams Fiberglass Dowel Drawing Operator Relationship Specialty Start Date End Date Tristen Hunter MD [address] [place] [address] [place] [address] PCP - General Family Medicine 07/04/23 documented as of this encounter
--- OUTSIDE RECORDS SUMMARY | 2024-03-26 10:34 | XMS_ITS | Encounter Summary ---
[place] [address] Care Team Providers Care Maintenance And Custodian Supervisor Name Role Phone Tristen Hunter MD Primary Care Provider [phone] Encounter Details Date Type Department Care Team (Latest Contact Info) Description 11/01/2023 Travel Social History Tobacco Use Types Packs/Day Years Used Date Smoking Tobacco: Former Cigarettes 07 01 1 963 - 1992 Smokeless Tobacco: Never Alcohol Use Standard Drinks/Week Comments Yes 7 (1 standard drink = 0.6 oz pur e alcohol) [facility] Utilities Answer Date Recorded In the past 12 months has [employer] electric, gas, oil, or water company threatened [...] AM EST Office Visit Hematology/Oncology at [address] [phone] Cl Hess MD [facility] [place] [address] Yessi Renee APRN [address] [place] [address] DR HEMATOLOGY AND ONCOLOGY [place], [place] [address] 04/09/2024 10:00 AM EST Infusion Hematology Oncology at [address] [phone] 04/23/2024 9:30 AM EST Office Visit Hematology/Oncology at [address] [phone] Cl Hess MD [facility] [place] [address] Yessi Renee APRN [address] [place] [address] DR HEMATOLOGY AND ONCOLOGY [place], [place] 750139 04/23/2024 10:00 AM EST Infusion Hematology Oncology at [address] [phone] 05/18/2024 4:30 PM EDT TH Visit (TeleHealth) [place] [address] Malachi Rothman MD [facility] [place] [address] 09/24/2024 9:00 AM EDT Office Visit Radiation Oncology at [address] [phone] Ping Moore PA [facility] DR [place] [address] documented as of this encounter Visit Diagnoses Not on filedocumented in this encounter Care Teams Maintenance And Custodian Supervisor Relationship Specialty Start Date End Date Tristen Hunter MD [address] [place] [address] [place] [address] PCP - General Family Medicine 07/04/23 documented as of this encounter
--- OUTSIDE RECORDS SUMMARY | 2024-03-26 10:34 | XMS_ITS | Encounter Summary ---
[place] [address] Care Team Providers Care Big Data Lead Name Role Phone Tristen Hunter MD Primary Care Provider [phone] Encounter Details Date Type Department Care Team (Latest Contact Info) Description 11/18/2023 Travel Social History Tobacco Use Types Packs/Day Years Used Date Smoking Tobacco: Former Cigarettes 4 30 1 963 - 1992 Smokeless Tobacco: Never Alcohol Use Standard Drinks/Week Comments Yes 7 (1 standard drink = 0.6 oz pur e alcohol) [facility] Utilities Answer Date Recorded In the past 12 months has [employer] electric, gas, oil, or water company threatened [...] Office Visit Hematology/Oncology at [address] [phone] Cl Hess MD [facility] [place] [place] [address] Yessi Renee APRN [address] [place] [address] DR HEMATOLOGY AND ONCOLOGY [place], [place] 119979 04/09/2024 10:00 AM EST Infusion Hematology Oncology at [address] [phone] 04/23/2024 9:30 AM EST Office Visit Hematology/Oncology at [address] [phone] Cl Hess MD [facility] [place] [address] Yessi Renee APRN [address] [place] [address] DR HEMATOLOGY AND ONCOLOGY [place], [place] 632249 04/23/2024 10:00 AM EST Infusion Hematology Oncology at [address] [phone] 05/18/2024 4:30 PM EDT TH Visit (TeleHealth) [place] [address] Malachi Rothman MD [facility] [place] [address] 09/24/2024 9:00 AM EDT Office Visit Radiation Oncology at [address] [phone] Ping Moore PA [facility] [place] [address] documented as of this encounter Visit Diagnoses Not on filedocumented in this encounter Care Teams Big Data Lead Relationship Specialty Start Date End Date Tristen Hunter MD [address] [place] [address] [place] [address] PCP - General Family Medicine 07/04/23 documented as of this encounter
--- OUTSIDE RECORDS SUMMARY | 2024-03-26 10:34 | XMS_ITS | Encounter Summary ---
[place] [address] Care Team Providers Care Pump Tester Name Role Phone Tristen Hunter MD Primary Care Provider [phone] Encounter Details Date Type Department Care Team [...] Recorded In the past 12 months has [employer] electric, gas, oil, or water company threatened [...] AM EST Office Visit Hematology/Oncology at [address] [phone] Cl Hess MD [facility] [place] [address] Yessi Renee APRN [address] [place] [address] DR HEMATOLOGY AND ONCOLOGY [place], [place] [address]69 04/09/2024 10:00 AM EST Infusion Hematology Oncology at [address] [phone] 04/23/2024 9:30 AM EST Office Visit Hematology/Oncology at [address] [phone] Cl Hess MD [facility] [place] [address] Yessi Renee APRN [address] [place] [address] DR HEMATOLOGY AND ONCOLOGY [place], [place] 512959 04/23/2024 10:00 AM EST Infusion Hematology Oncology at [address] [phone] 05/18/2024 4:30 PM EDT TH Visit (TeleHealth) [place] [address] Malachi Rothman MD [facility] [place] [address] 09/24/2024 9:00 AM EDT Office Visit Radiation Oncology at [address] [phone] Ping Moore PA [facility] [place] [address] documented as of this encounter Visit Diagnoses Not on filedocumented in this encounter Care Teams Pump Tester Relationship Specialty Start Date End Date Tristen Hunter MD [address] [place] [address] [place] [address] PCP - General Family Medicine 07/04/23 documented as of this encounter
--- OUTSIDE RECORDS SUMMARY | 2024-03-26 10:34 | XMS_ITS | Encounter Summary ---
[place] [address] Care Team Providers Care Floral Decorator Name Role Phone Tristen Hunter MD Primary Care Provider [phone] Encounter Details Date Type Department Care Team (Latest Contact Info) Description 11/21/2023 Travel Social History Tobacco Use Types Packs/Day Years Used Date Smoking Tobacco: Former Cigarettes 4 30 1 963 - 1992 Smokeless Tobacco: Never Alcohol Use Standard Drinks/Week Comments Yes 7 (1 standard drink = 0.6 oz pur e alcohol) [facility] Utilities Answer Date Recorded In the past 12 months has [employer] electric, gas, oil, or water company threatened [...] AM EST Office Visit Hematology/Oncology at [address] [phone] Cl Hess MD [facility] [place] [place] [address] Yessi Renee APRN [address] [place] [address] DR HEMATOLOGY AND ONCOLOGY [place], [place] 271179 04/09/2024 10:00 AM EST Infusion Hematology Oncology at [address] [phone] 04/23/2024 9:30 AM EST Office Visit Hematology/Oncology at [address] [phone] Cl Hess MD [facility] [place] [address] Yessi Renee APRN [address] [place] [address] DR HEMATOLOGY AND ONCOLOGY [place], [place] 807989 04/23/2024 10:00 AM EST Infusion Hematology Oncology at [address] [phone] 05/18/2024 4:30 PM EDT TH Visit (TeleHealth) [place]iation [place] [address] Malachi Rothman MD [facility] [place] [address] 09/24/2024 9:00 AM EDT Office Visit Radiation Oncology at [address] [phone] Ping Moore PA [facility] DR HEMATOLOGY [place] [address] documented as of this encounter Visit Diagnoses Not on filedocumented in this encounter Care Teams Floral Decorator Relationship Specialty Start Date End Date Tristen Hunter MD [address] [place] [address] [place] [address] PCP - General Family Medicine 07/04/23 documented as of this encounter
--- OUTSIDE RECORDS SUMMARY | 2024-03-26 10:35 | XMS_ITS | Encounter Summary ---
Author Organization [facility] Address [facility] [place] [address] Care Team Providers Care Blueprinter Name Role Phone Tristen Hunter MD Primary Care Provider [phone] Encounter Details Date Type Department Care Team (Late st Contact Info) Description 09/02/2023 Interpretation Only Radiology Library [place] [facility] [phone] Unknown None Social History Tobacco Use Types Packs/Day Years Used Date Smoking Tobacco: Former Cigarettes 4 30 1 963 - 1992 Smokeless Tobacco: Never Alcohol Use Standard Drinks/Week Comments Yes 7 (1 standard drink = 0.6 oz pur e alcohol) [facility] Utilities Answer Date Recorded In the past 12 months has e [employer], gas, oil, or water company threatened to [...] AM EST Office Visit Hematology/Oncology at [address] [phone] Cl Hess MD [facility] [place] [address] Yessi Renee APRN [address] [place] [address] HEMATOLOGY AND ONCOLOGY [place], [place] 601509 04/09/2024 10:00 AM EST Infusion Hematology Oncology at [address] [phone] 04/23/2024 9:30 AM EST Office Visit Hematology/Oncology at [address] [phone] Cl Hess MD [facility] [place] [address] Yessi Renee APRN [address] [place] [address] DR HEMATOLOGY [place] [address] 04/23/2024 10:00 AM EST Infusion Hematology Oncology at [address] [phone] 05/18/2024 4:30 PM EDT TH Visit (TeleHealth) [place] [address] Malachi Rothman MD [facility] [place] [address] 09/24/2024 9:00 AM EDT Office Visit Radiation Oncology at [address] [phone] Ping Moore PA [facility] [place] [address] documented as of this encounter Procedures Procedure Name Priority Date/Time Associated Diagnosis Comments FILM LIBRARY STORAGE ONLY CT ABDOMEN AND PELVIS Routine 09/02/2023 3:45 PM EDT documented in this encounter Results * Film Library- Storage Only CT Abdomen & Pelvis (09/02/2023 3:45 PM EDT) 09/03/2023 8:26 AM EDT Narrative DH RAD - 09/03/2023 8:26 AM EDT This exam is auto-finalizing. It's purpose is for storage only. Unknown IMG FILM LIBRARY ORD ERABLES [place], [place] documented in this encounter Visit Diagnoses Not on filedocumented in this encounter Care Teams Blueprinter Relationship Specialty Start Date End Date Tristen Hunter MD [address] [place] [address] [place] [address] PCP - General Family Medicine 07/04/23 documented as of this encounter
--- OUTSIDE RECORDS SUMMARY | 2024-03-26 10:35 | XMS_ITS | Encounter Summary ---
Author Organization [facility] Address [facility] [place] [address] Care Team Providers Care Training Personnel Supervisor Name Role Phone Tristen Hunter MD Primary Care Provider [phone] Reason for Visit * Reason Comments Chemotherapy * Treatment/Therapy Plan Authorization (Routine) - Authorized Specialty Diagnoses / Procedures Referred By Contac t Referred To Contact Diagnoses Malignant neoplasm of prostate Cl Hess MD [facility] [place] [address] Stj Hem Onc Infusion [address] [place] [phone] Referral ID Status Reason Start Date Expiration Date V isits Requested Visits Authorized [id number] Authorized 07/11/2023 07/10/2024 99 107 Encounter Details Date Type Department Care Team (Late st Contact Info) Description 08/23/2023 9:00 AM EDT Infusion Hematology Oncology at [address] [phone] Malignant neoplasm of prostate Social [...] patency per use. PLAN Pump disconnect at [facility] Saturday 1158H per Haleigh. documented in this encounter Plan of Treatment Upcoming Encounters Date Type Department Care Team (Late st Contact Info) Description 04/09/2024 9:30 AM EST Office Visit Hematology/Oncology at [address] [phone] Cl Hess MD [facility] [place] [address] Yessi Renee APRN [address] [place] [address] DR HEMATOLOGY [place] [address] 04/09/2024 10:00 AM EST Infusion Hematology Oncology at [address] [phone] 04/23/2024 9:30 AM EST Office Visit Hematology/Oncology at [address] [phone] Cl Hess MD [facility] [place] [address] Yessi Renee APRN [address] [place] [address] DR HEMATOLOGY AND ONCOLOGY [place], [place] 131839 04/23/2024 10:00 AM EST Infusion Hematology Oncology at [address] [phone] 05/18/2024 4:30 PM EDT TH Visit (TeleHealth) [place] [address] Malachi Rothman MD [facility] [place] [address] 09/24/2024 9:00 AM EDT Office Visit Radiation Oncology at [address] [phone] Ping Moore PA [facility] DR HEMATOLOGY [place] [address] documented as of this encounter Visit Diagnoses [...] 2 minutes is a recommendation from the clerk carrier. Administer prior to chemotherapy., Routine Given 08/23/2023 [...] mg documented in this encounter Care Teams Training Personnel Supervisor Relationship Specialty Start Date End Date Tristen Hunter MD [address] [place] [address] [place] [address] PCP - General Family Medicine 07/04/23 documented as of this encounter
--- OUTSIDE RECORDS SUMMARY | 2024-03-26 10:35 | XMS_ITS | Encounter Summary ---
Author Organization [facility] [place] [address] Care Team Providers Care Research Phlebotomist Name Role Phone Tristen Hunter MD Primary Care Provider [phone] Encounter Details Date Type Department Care Team (Late st Contact Info) Description 08/23/2023 10:00 AM EDT Office Visit Hematology/Oncology at [address] [phone] [facility] DR [place] [address] Malignant neoplasm of prostate Social History Tobacco Use Types Packs/Day Years Used Date Smoking Tobacco: Former Cigarettes 4 1 - 1992 Smokeless Tobacco: Never Alcohol Use Standard Drinks/Week Comments Yes 7 (1 standard drink = 0.6 oz pur e alcohol) [facility] Utilities Answer Date Recorded In the past 12 months has [employer] electric, gas, oil, or water company threatened [...] AM EST Office Visit Hematology/Oncology at [address] [phone] Cl Hess MD [facility] [place] [address] Yessi Renee APRN [address] [place] [address] DR HEMATOLOGY AND ONCOLOGY [place], [place] [address] 04/09/2024 10:00 AM EST Infusion Hematology Oncology at [address] [phone] 04/23/2024 9:30 AM EST Office Visit Hematology/Oncology at [address] [phone] Cl Hess MD [facility] [place] [address] Yessi Renee APRN [address] [place] [address] DR HEMATOLOGY AND ONCOLOGY [place], [place] [address] 04/23/2024 10:00 AM EST Infusion Hematology Oncology at [address] [phone] 05/18/2024 4:30 PM EDT TH Visit (TeleHealth) [place] [address] Malachi Rothman MD [facility] [place] [address] 09/24/2024 9:00 AM EDT Office Visit Radiation Oncology at [address] [phone] Ping Moore PA [facility] DR [place] [address] documented as of this encounter Visit Diagnoses Diagnosis Malignant neoplasm of prostate documented in this encounter Care Teams Research Phlebotomist Relationship Specialty Start Date End Date Tristen Hunter MD [address] [place] [address] [place] [address] PCP - General Family Medicine 07/04/23 documented as of this encounter
--- OUTSIDE RECORDS SUMMARY | 2024-03-26 10:35 | XMS_ITS | Encounter Summary ---
[place] [address] Care Team Providers Care Pick Pack Worker Name Role Phone Tristen Hunter MD Primary Care Provider Encounter Details Date Type Department Care Team (Latest Contact Info) Description 09/13/2023 Specialty [place] [phone] Casandra Walton, [facility] Refill Coordination - Manual (lipase/protease/amyl ase) [...] AM EST Office Visit Hematology/Oncology at [address] [phone] Cl Hess MD [facility] [place] [address] HEMATOLOGY AND ONCOLOGY [place], [place] [phone] 04/09/2024 10:00 AM EST Infusion Hematology Oncology at [address] [phone] 04/23/2024 9:30 AM EST Office Visit Hematology/Oncology at [address] [phone] Cl Hess MD [facility] [place] [address] HEMATOLOGY AND ONCOLOGY [place], [place] [phone] 04/23/2024 10:00 AM EST Infusion Hematology Oncology at [address] [phone] 05/18/2024 4:30 PM EDT TH Visit (TeleHealth) [place] [address] Malachi Rothman MD [facility] [place] [address] 09/24/2024 9:00 AM EDT Office Visit Radiation Oncology at [address] [phone] Ping Moore PA [facility] [place] [address] documented as of this encounter Visit Diagnoses Not on filedocumented in this encounter Care Teams Pick Pack Worker Relationship Specialty Start Date End Date Tristen Hunter MD [address] [place] [address] [place] [address] PCP - General Family Medicine 07/04/23 documented as of this encounter
--- OUTSIDE RECORDS SUMMARY | 2024-03-26 10:35 | XMS_ITS | Encounter Summary ---
Author Organization [facility] Address [facility] [place] [address] Care Team Providers Care Tour Conductor Name Role Phone Tristen Hunter MD Primary Care Provider [phone] Encounter Details Date Type Department Care Team (Late st Contact Info) Description 08/23/2023 8:30 AM EDT Office Visit Hematology/Oncology at [address] [phone] Cl Hess MD [facility] [place] [address] Yessi Renee, ARNOLD [address] [place] [address] DR [place] [address] Malignant neoplasm of head of [...] encounter Progress Notes * Natash[place]ito Yessi A, MIDDLE SCHOOL RESOURCE TEACHER - 08/23/2023 8:30 AM EDT Subjective Patient [...] periduodenal or perilesional adenopathy was appreciated Impression: [id number] pancreas head mass lesion with biliary and [...] disease/disease progression on interim staging evaluation. [facility] second read of CT c/a/p from 05/22/23 [...] due to CVA 14. Genetic testing: Result: Sticky's CancerNext-Expanded +RNAinsight Panel showed no mutation was [...] chest pain or swelling. 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 He has a h/o multiple medical problems as above, including colon cancer, prostate cancer, ASCVD, PVDz s/p carotid endarterectomy, prior CVA, DM and others. 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 While in [facility], he presented with chest pain and SOB [...] discussed. Pathology was requested for review at [facility] and we also requested that images be sent. His case was reviewed at [facility] on 06/18/23. The Ct from 05/22/23 [...] will be followed also by our clinical heat treat furnace operator, Lupe Velasquez. On 07/12/23 he began neoadjuvant [...] AM EST Office Visit Hematology/Oncology at [address] [phone] Cl Hess MD [facility] [place] [address] Yessi Renee APRN [address] [place] [address] DR HEMATOLOGY AND ONCOLOGY [place], [place] [address] 04/09/2024 10:00 AM EST Infusion Hematology Oncology at [address] [phone] 04/23/2024 9:30 AM EST Office Visit Hematology/Oncology at [address] [phone] Cl Hess MD [facility] [place] [address] Yessi Renee [employer] RESOURCE TEACHER [address] [place] [address] DR [place] [address] 04/23/2024 10:00 AM EST Infusion Hematology Oncology at [address] [phone] 05/18/2024 4:30 PM EDT TH Visit (TeleHealth) [place] [address] Malachi Rothman MD [facility] [place] [address] 09/24/2024 9:00 AM EDT Office Visit Radiation Oncology at [address] [phone] Ping Moore PA [facility] [place] [address] documented as of this encounter Visit Diagnoses Diagnosis Malignant neoplasm of head of pancreas Malignant neoplasm of prostate documented in this encounter Care Teams Tour Conductor Relationship Specialty Start Date End Date Tristen Hunter MD [address] [place] [address] [place] [address] PCP - General Family Medicine 07/04/23 documented as of this encounter
--- OUTSIDE RECORDS SUMMARY | 2024-03-26 10:35 | XMS_ITS | Encounter Summary ---
Author Organization [facility] [place] [address] Care Team Providers Care Roof Cement And Paint Maker Helper Name Role Phone Tristen Hunter MD Primary Care Provider [phone] Encounter Details Date Type Department Care Team (Late st Contact Info) Description 10/01/2023 Orders Only Hematology [place] [address] Cl Hess MD [facility] DR ONCOLOGY [place] [phone] Social History Tobacco Use Types Packs/Day Years [...] AM EST Office Visit Hematology/Oncology at [address] [phone] Cl Hess MD [facility] [place] [address] Yessi Renee APRN [address] [place] [address] DR [place] [address] 04/09/2024 10:00 AM EST Infusion Hematology Oncology at [address] [phone] 04/23/2024 9:30 AM EST Office Visit Hematology/Oncology at [address] [phone] Cl Hess MD [facility] [place] [address] [address] HEMATOLOGY AND ONCOLOGY [place], [place] [address] 04/23/2024 10:00 AM EST Infusion Hematology Oncology at [address] [phone] 05/18/2024 4:30 PM EDT TH Visit (TeleHealth) [place] [address] Malachi Rothman MD [facility] [place] [address] 09/24/2024 9:00 AM EDT Office Visit Radiation Oncology at [address] [phone] Ping Moore PA [facility] [place] [address] documented as of this encounter Visit Diagnoses Not on filedocumented in this encounter Care Teams Roof Cement And Paint Maker Helper Relationship Specialty Start Date End Date Tristen Hunter MD [address] [place] [address] [place] [address] PCP - General Family Medicine 07/04/23 documented as of this encounter
--- OUTSIDE RECORDS SUMMARY | 2024-03-26 10:35 | XMS_ITS | Encounter Summary ---
Author Organization [facility] Address [facility] [place] [address] Care Team Providers Care Information Security Systems Instructor Name Role Phone Tristen Hunter MD Primary Care Provider Reason for Visit * Reason Comments Chemotherapy * Treatment/Therapy Plan Authorization (Routine) - Authorized Specialty Diagnoses / Procedures Referred By Contac t Referred To Contact Diagnoses Malignant neoplasm of prostate Cl Hess MD [facility] [address] Stj Hem Onc Infusion [address] [place] [phone] Referral ID Status Reason Start Date Expiration Date V isits Requested Visits Authorized [id number] Authorized 07/11/2023 07/10/2024 99 107 Encounter Details Date Type Department Care Team (Late st Contact Info) Description 10/04/2023 9:30 AM EDT Infusion Hematology Oncology at [address] [phone] Malignant neoplasm of prostate Social [...] went in. Pt will be disconnected at [facility] on Saturday10/06/23 at 1230 pm. REACTIONS (DESCRIPTION, TIME, INTERVENTION AND EFFECTIVENESS) none ASSESSMENT Wero was awake, alert and tolerated treatment well. Port checked for good blood return and patency per use. PLAN Pump disconnect at [facility] Saturday documented in this encounter Plan of Treatment Upcoming Encounters Date Type Department Care Team (Late st Contact Info) Description 04/09/2024 9:30 AM EST Office Visit Hematology/Oncology at [address] [phone] Cl Hess MD [facility] [place] [address] Yessi Renee APRN [address] [place] [address] DR HEMATOLOGY AND ONCOLOGY [place], [place] [address] 04/09/2024 10:00 AM EST Infusion Hematology Oncology at [address] [phone] 04/23/2024 9:30 AM EST Office Visit Hematology/Oncology at [address] [phone] Cl Hess MD [facility] [place] [address] Yessi Renee APRN [address] [place] [address] DR HEMATOLOGY AND ONCOLOGY [place], [place] [phone] 04/23/2024 10:00 AM EST Infusion Hematology Oncology at [address] [phone] 05/18/2024 4:30 PM EDT TH Visit (TeleHealth) [place] [address] Malachi Rothman MD [facility] [place] [address] 09/24/2024 9:00 AM EDT Office Visit Radiation Oncology at [address] [phone] Ping Moore PA [facility] [place] [address] documented as of this encounter Visit Diagnoses [...] 2 minutes is a recommendation from the dispensing and measuring optician. Administer prior to chemotherapy., Routine Given 10/04/2023 [...] mg documented in this encounter Care Teams Information Security Systems Instructor Relationship Specialty Start Date End Date Tristen Hunter MD [address] [place] [address] [place] [address] PCP - General Family Medicine 07/04/23 documented as of this encounter
--- OUTSIDE RECORDS SUMMARY | 2024-03-26 10:35 | XMS_ITS | Encounter Summary ---
[place] [address] Care Team Providers Care Oxide Furnace Tender Name Role Phone Tristen Hunter MD Primary Care Provider [phone] Encounter Details Date Type Department Care Team (Latest Contact Info) Description 09/06/2023 Travel Social History Tobacco Use Types Packs/Day Years Used Date Smoking Tobacco: Former Cigarettes 4 30 1 963 - 1992 Smokeless Tobacco: Never Alcohol Use Standard Drinks/Week Comments Yes 7 (1 standard drink = 0.6 oz pur e alcohol) [facility] Utilities Answer Date Recorded In the past 12 months has [employer] electric, gas, oil, or water company threatened [...] AM EST Office Visit Hematology/Oncology at [address] [phone] Cl Hess MD [facility] [place] [address] Yessi Renee APRN [address] [place] [address] DR HEMATOLOGY AND ONCOLOGY [place], [place] [address] 04/09/2024 10:00 AM EST Infusion Hematology Oncology at [address] [phone] 04/23/2024 9:30 AM EST Office Visit Hematology/Oncology at [address] [phone] Cl Hess MD [facility] [place] [address] Yessi Renee APRN [address] [place] [address] DR HEMATOLOGY AND ONCOLOGY [place], [place] [address] 04/23/2024 10:00 AM EST Infusion Hematology Oncology at [address] [phone] 05/18/2024 4:30 PM EDT TH Visit (TeleHealth) [place] [address] Malachi Rothman MD [facility] [place] [address] 09/24/2024 9:00 AM EDT Office Visit Radiation Oncology at [address] [phone] Ping Moore PA [facility] DR [place] [address] documented as of this encounter Visit Diagnoses Not on filedocumented in this encounter Care Teams Oxide Furnace Tender Relationship Specialty Start Date End Date Tristen Hunter MD [address] [place] [address] [place] [address] PCP - General Family Medicine 07/04/23 documented as of this encounter
--- OUTSIDE RECORDS SUMMARY | 2024-03-26 10:35 | XMS_ITS | Encounter Summary ---
Author Organization [facility] [place] [address] Care Team Providers Care Sheet Turner Name Role Phone Tristen Hunter MD Primary Care Provider [phone] Reason for Referral * Consultation (Routine) - Closed Specialty Diagnoses / Procedures Referred By Marques livingston Referred To Contact Radiation Oncology Diagnoses Malignant neoplasm of head of pancreas Cl Hess MD [facility] [place] [address] Malachi Rothman MD [facility] [place] [address] Referral ID Status Reason Start Date Expiration Date V isits Requested Visits Authorized [id number] Closed Consult, Test & Treat 10/18/2023 10/17/2024 1 1 Encounter Details Date Type Department Care Team (Late st Contact Info) Description 10/18/2023 9:00 AM EDT Office Visit Hematology/Oncology at [address] [phone] Cl Hess MD [facility] [place] [address] Yessi Renee APRN [address] [place] [address] DR HEMATOLOGY AND ONCOLOGY [place], [place] [phone] Malignant neoplasm of head of pancreas Social History Tobacco Use Types Packs/Day Years Used Date Smoking Tobacco: Former Cigarettes 4 30 1 3 - 1992 Smokeless Tobacco: Never Alcohol Use Standard Drinks/Week Comments Yes 7 (1 standard drink = 0.6 oz pur e alcohol) [facility] Utilities Answer Date Recorded [...] periduodenal or perilesional adenopathy was appreciated Impression: [id number] pancreas head mass lesion with biliary and [...] disease/disease progression on interim staging evaluation. [facility] second read of CT [...] no worsening of symptoms. 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 While in [facility], he presented with chest pain and SOB [...] 06/07/23. Pathology was requested for review at [facility] and we also requested [...] in the absence of cold, hypersensitivity reactions, angina/CO and others. He was given an informational handout regarding mFolfirinox. We reviewed his case at [facility] on 06/18/23. The Ct from [...] plan was for a blood draw in [facility] once he starts his infusions. If genetic testing showed a BRCA or PALB2 mutation, he may be eligible for a clinical trial looking at theuse olaparib following completion of chemotherapy and surgery to see if this improves RFS. He is also being followed by our clinical lining layer, Lupe Velasquez. On 07/12/23 he began neoadjuvant [...] to Dr. Rothman in Radiation Oncology at [facility] for consideration of SBRT. documented in this encounter Plan of Treatment Upcoming Encounters Date Type Department Care Team (Late st Contact Info) Description 04/09/2024 9:30 AM EST Office Visit Hematology/Oncology at [address] [phone] Cl Hess MD [facility] [place] [address] [address] [place] [address] 04/09/2024 10:00 AM EST Infusion Hematology Oncology at [address] [phone] 04/23/2024 9:30 AM EST Office Visit Hematology/Oncology at [address] [phone] Cl Hess MD [facility] [place] [address] [place] [address] 04/23/2024 10:00 AM EST Infusion Hematology Oncology at [address] [phone] 05/18/2024 4:30 PM EDT TH Visit (TeleHealth) [place] [address] Malachi Rothman MD [facility] [place] [address] 09/24/2024 9:00 AM EDT Office Visit Radiation Oncology at [address] [phone] Ping Moore PA [facility] DR [place] [address] Scheduled Referrals Name Type Priority Associated Diagnoses Orde r Schedule Referral to Radiation Oncology Outpatient Referral Routine Malignant neoplasm of head of pancreas Ordered: 10/18/2023 documented as of this encounter Visit Diagnoses Diagnosis Malignant neoplasm of head of pancreas documented in this encounter Care Teams Sheet Turner Relationship Specialty Start Date End Date Tristen Hunter MD [address] [place] [address] [place] [address] PCP - General Family Medicine 07/04/23 documented as of this encounter
--- OUTSIDE RECORDS SUMMARY | 2024-03-26 10:35 | XMS_ITS | Encounter Summary ---
Author Organization [facility] [place] [address] Care Team Providers Care Professional Programmer Analyst Name Role Phone Tristen Hunter MD Primary Care Provider [phone] Encounter Details Date Type Department Care Team (Late st Contact Info) Description 10/17/2023 Orders Only [place]ematology [place] [address] Cl Hess MD [facility] DR ONCOLOGY [place] [id number] Social History Tobacco Use Types Packs/Day Years Used Date Smoking Tobacco: Former Cigarettes 4 30 1 963 - 1992 Smokeless Tobacco: Never Alcohol Use Standard Drinks/Week Comments Yes 7 (1 standard drink = 0.6 oz pur e alcohol) [facility] Utilities Answer Date Recorded In the [...] AM EST Office Visit Hematology/Oncology at [address] [phone] Cl Hess MD [facility] [place] [address] Yessi Renee APRN [address] [place] [address] DR HEMATOLOGY [place] [address] 04/09/2024 10:00 AM EST Infusion Hematology Oncology at [address] [phone] 04/23/2024 9:30 AM EST Office Visit Hematology/Oncology at [address] [phone] Cl Hess MD [facility] [place] [address] [address] HEMATOLOGY AND ONCOLOGY [place], [place] [address] 04/23/2024 10:00 AM EST Infusion Hematology Oncology at [address] [phone] 05/18/2024 4:30 PM EDT TH Visit (TeleHealth) [place] [address] Malachi Rothman MD [facility] [place] [address] 09/24/2024 9:00 AM EDT Office Visit Radiation Oncology at [address] [phone] Ping Moore PA [facility] DR [place] [address] documented as of this encounter Visit Diagnoses Not on filedocumented in this encounter Care Teams Professional Programmer Analyst Relationship Specialty Start Date End Date Tristen Hunter MD [address] [place] [address] [place] [address] PCP - General Family Medicine 07/04/23 documented as of this encounter
--- OUTSIDE RECORDS SUMMARY | 2024-03-26 10:35 | XMS_ITS | Encounter Summary ---
Author Organization [facility] Address [facility] [place] [address] Care Team Providers Care Site Technician Name Role Phone Tristen Hunter MD Primary Care Provider [phone] Reason for Visit * Reason Comments Chemotherapy * Treatment/Therapy Plan Authorization (Routine) - Authorized Specialty Diagnoses / Procedures Referred By Contac t Referred To Contact Diagnoses Malignant neoplasm of prostate Cl Hess MD [facility] [place] [place] [address] Stj Hem Onc Infusion [address] [place] [phone] Referral ID Status Reason Start Date Expiration Date V isits Requested Visits Authorized [id number] Authorized 07/11/2023 07/10/2024 99 107 Encounter Details Date Type Department Care Team (Late st Contact Info) Description 09/06/2023 10:00 AM EDT Infusion Hematology Oncology at [address] [phone] Malignant neoplasm of prostate Social History Tobacco Use Types Packs/Day Years Used Date Smoking Tobacco: Former Cigarettes 4 30 1 3 - 1992 Smokeless Tobacco: Never Alcohol Use Standard Drinks/Week Comments Yes 7 (1 standard drink = 0.6 oz pur e alcohol) [facility] Utilities Answer Date Recorded In [...] per use. PLAN Pump disconnect at [facility] Saturday 1255H per Fanny. documented in this encounter Plan of Treatment Upcoming Encounters Date Type Department Care Team (Late st Contact Info) Description 04/09/2024 9:30 AM EST Office Visit Hematology/Oncology at [address] [phone] Cl Hess MD [facility] [place] [address] Yessi Renee APRN [address] [place] [address] DR [place] [address] 04/09/2024 10:00 AM EST Infusion Hematology Oncology at [address] [phone] 04/23/2024 9:30 AM EST Office Visit Hematology/Oncology at [address] [phone] Cl Hess MD [facility] [place] [address] Yessi Renee APRN [address] [place] [address] DR HEMATOLOGY AND ONCOLOGY [place], [place] [address] 04/23/2024 10:00 AM EST Infusion Hematology Oncology at [address] [phone] 05/18/2024 4:30 PM EDT TH Visit (TeleHealth) [place] [address] Malachi Rothman MD [facility] [place] [address] 09/24/2024 9:00 AM EDT Office Visit Radiation Oncology at [address] [phone] Ping Moore PA [facility] [place] [address] documented as of this encounter Visit Diagnoses [...] 2 minutes is a recommendation from the wheel mill operator. Administer prior to chemotherapy., Routine Given 09/06/2023 [...] mg documented in this encounter Care Teams Site Technician Relationship Specialty Start Date End Date Tristen Hunter MD [address] [place] [address] [place] [address] PCP - General Family Medicine 07/04/23 documented as of this encounter
--- OUTSIDE RECORDS SUMMARY | 2024-03-26 10:35 | XMS_ITS | Encounter Summary ---
[place] [address] Care Team Providers Care Extractor Tender Raw Stock Name Role Phone Tristen Hunter MD Primary Care Provider [phone] Reason for Visit * Reason Onset Date Comments Other 09/23/2023 Issue with pump beeping on sat. am Encounter Details Date Type Department Care Team (Late st Contact Info) Description 09/23/2023 Telephone Hematology/Oncology at [address] [phone] Salome Barron RN Other (Issue [...] his therapy and was disconnected Saturday at [facility]. documented in this encounter Plan of Treatment Upcoming Encounters Date Type Department Care Team (Late st Contact Info) Description 04/09/2024 9:30 AM EST Office Visit Hematology/Oncology at [address] [phone] Cl Hess MD [facility] [place] [address] [address] HEMATOLOGY AND ONCOLOGY [place], [place] [phone] 04/09/2024 10:00 AM EST Infusion Hematology Oncology at [address] [phone] 04/23/2024 9:30 AM EST Office Visit Hematology/Oncology at [address] [phone] Cl Hess MD [facility] [place] [address] Yessi Renee, [address] HEMATOLOGY AND ONCOLOGY [place], [place] [address] 04/23/2024 10:00 AM EST Infusion Hematology Oncology at [address] [phone] 05/18/2024 4:30 PM EDT TH Visit (TeleHealth) [place] [address] Malachi Rothman MD [facility] [place] [address] 09/24/2024 9:00 AM EDT Office Visit Radiation Oncology at [address] [phone] Ping Moore PA [facility] DR HEMATOLOGY [place] [address] documented as of this encounter Visit Diagnoses Not on filedocumented in this encounter Care Teams Extractor Tender Raw Stock Relationship Specialty Start Date End Date Tristen Hunter MD [address] [place] [address] [place] [address] PCP - General Family Medicine 07/04/23 documented as of this encounter
--- OUTSIDE RECORDS SUMMARY | 2024-03-26 10:35 | XMS_ITS | Encounter Summary ---
Author Organization [facility] Address [facility] [place] [address] Care Team Providers Care Chief Crna Name Role Phone Tristen Hunter MD Primary Care Provider [phone] Encounter Details Date Type Department Care Team (Late st Contact Info) Description 09/02/2023 10:40 AM EDT Ancillary Procedure Radiology Library [place] [phone] Unknown None Social History Tobacco Use Types Packs/Day Years Used Date Smoking Tobacco: Former Cigarettes 4 30 1 963 - 1992 Smokeless Tobacco: Never Alcohol Use Standard Drinks/Week Comments Yes 7 (1 standard drink = 0.6 oz pur e alcohol) [facility] Utilities Answer Date Recorded In the past 12 months has [employer], gas, oil, or water company threatened [...] AM EST Office Visit Hematology/Oncology at [address] [phone] Cl Hess MD [facility] [place] [address] Yessi Renee APRN [address] [place] [address] DR HEMATOLOGY [place] [address] 04/09/2024 10:00 AM EST Infusion Hematology Oncology at [address] [phone] 04/23/2024 9:30 AM EST Office Visit Hematology/Oncology at [address] [phone] Cl Hess MD [facility] [place] [address] Yessi Renee APRN [address] [place] [address] DR HEMATOLOGY AND ONCOLOGY [place], [place] [address] 04/23/2024 10:00 AM EST Infusion Hematology Oncology at [address] [phone] 05/18/2024 4:30 PM EDT TH Visit (TeleHealth) [place] [address] Malachi Rothman MD [facility] [place] [address] 09/24/2024 9:00 AM EDT Office Visit Radiation Oncology at [address] [phone] Ping Moore PA [facility] DR [place]AT[place] [address] documented as of this encounter Procedures Procedure Name Priority Date/Time Associated Diagnosis Comments FILM LIBRARY STORAGE ONLY MR PELVIS Routine 09/02/2023 10:40 AM EDT documented in this encounter Results * Film Library- Storage Only MR Pelvis (09/02/2023 10:40 AM EDT) 09/03/2023 8:26 AM EDT Narrative DH RAD - 09/03/2023 8:26 AM EDT This exam is auto-finalizing. It's purpose is for storage only. Unknown IMG FILM LIBRARY ORD ERABLES Performing Organization Address City/State/[facility] Co de Phone Number [place], [place] documented in this encounter Visit Diagnoses Not on filedocumented in this encounter Care Teams Chief Crna Relationship Specialty Start Date End Date Tristen Hunter MD [address] [place] [address] [place] [address] PCP - General Family Medicine 07/04/23 documented as of this encounter
--- OUTSIDE RECORDS SUMMARY | 2024-03-26 10:35 | XMS_ITS | Encounter Summary ---
Author Organization Counts Include [facility] Address [facility] [address] Care Team Providers Care Dental Equipment Installer And Servicer Name Role Phone Tristen Hunter MD Primary Care Provider [phone] Encounter Details Date Type Department Care Team (Late st Contact Info) Description 09/06/2023 9:30 AM EDT Office Visit Hematology/Oncology at [address] [phone] Cl Hess MD [facility] [place] [address] Yessi Renee, [place] [address] [place] [address] DR HEMATOLOGY [place] [address] Malignant neoplasm of head of [...] this encounter Progress Notes * Jimbofran Yessi Adwoa, ONLINE FACILITATOR - 09/06/2023 9:30 AM EDT Subjective Patient [...] periduodenal or perilesional adenopathy was appreciated Impression: [id number] pancreas head mass lesion with biliary and [...] progression on interim staging evaluation. [facility] second read of CT c/a/p from 05/22/23 [...] due to CVA 14. Genetic testing: Result: [employer] CancerNext-Expanded +RNAinsight Panel showed no mutation was [...] swelling. Abd is soft. 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 While in [facility], he presented with chest pain and SOB [...] Pathology was requested for review at [facility] and we also requested that images be sent. His case was reviewed at [facility] [...] will be followed also by our clinical digital content marketing manager, Lupe Velasquez. On 07/12/23 he began [...] AM EST Office Visit Hematology/Oncology at [address] [phone] Cl Hess MD [facility] [place] [address] Yessi Renee APRN [address] [place] [address] DR HEMATOLOGY [place] [address] 04/09/2024 10:00 AM EST Infusion Hematology Oncology at [address] [phone] 04/23/2024 9:30 AM EST Office Visit Hematology/Oncology at [address] [phone] Cl Hess MD [facility] [place] [address] Yessi Renee APRN [address] [place] [address] DR HEMATOLOGY AND ONCOLOGY [place], [place] [address] 04/23/2024 10:00 AM EST Infusion Hematology Oncology at [address] [phone] 05/18/2024 4:30 PM EDT TH Visit (TeleHealth) [place] [address] Malachi Rothman MD [facility] [place] [address] 09/24/2024 9:00 AM EDT Office Visit Radiation Oncology at [address] [phone] Ping Moore PA [facility] DR [place]EMATOLOGY [place] [address] documented as of this encounter Visit Diagnoses Diagnosis Malignant neoplasm of head of pancreas documented in this encounter Care Teams Dental Equipment Installer And Servicer Relationship Specialty Start Date End Date Tristen Hunter MD [address] [place] [address] [place] [address] PCP - General Family Medicine 07/04/23 documented as of this encounter
--- OUTSIDE RECORDS SUMMARY | 2024-03-26 10:35 | XMS_ITS | Encounter Summary ---
[place] [address] Care Team Providers Care Steam Fitter Supervisor Maintenance Name Role Phone Tirsten Hunter MD Primary Care Provider [phone] Reason for Referral * Diagnostic Test (Routine) - Authorized Specialty Diagnoses / Procedures Referred By Contermelinda t Referred To Contact Diagnoses Presence of internal carotid stent Procedures Carotid Duplex, Bilateral Basim Glasgow MD [facility] [place] [address] [facility] Vascular Lab [address] [place] [address] Referral ID Status Reason Start Date Expiration Date Visits Requested Visits Authorized [id number] Authorized Specialty Service Requested 10/11/2023 10/10/2024 1 1 Encounter Details Date Type Department Care Team (Late st Contact Info) Description 10/11/2023 11:15 AM EDT Office [place] [address] Basim Glasgow MD [facility] [place] [address] Presence of internal carotid stent Social History Tobacco Use Types Packs/Day Years Used Date Smoking Tobacco: Former Cigarettes 4 30 1 3 - 1992 Smokeless Tobacco: Never Alcohol Use Standard Drinks/Week Comments Yes 7 (1 standard drink = 0.6 oz pur e alcohol) [facility] Utilities Answer Date Recorded In the [...] ICA stenosis following CEA. Outside CTA from [facility] reviewed and shows a high grade right ICA stenosis and a moderate right petrous and cavernous stenoses. His last ischemic event was 11/2019 when he had ocular event. Note from Vascular surgeon in [place] who did his R CEA I believe [...] left eye. He has not seen an ultrasound sonographer in some time. reports that he quit [...] mouth nightly., Disp: 30 capsule, Rfl: [address] w[address]-yeuepdui-oqeigtu DR (Creon 24) 24,000-76,000 -120,[address] [...] by mouth daily., Disp: , Rfl: omega 9-cig-prs-fish oil 250-350-1,000 mg Capsule, Take 1,000 mg [...] at [facility] Vascular in [place]: shaking Has [...] Text Report Department: Vascular Surgery Lab Patient: [id number] (THA JARRETT) CPT: 96340 Referring Physician: BASIM GLASGOW Indications:Right TCAR. ? [...] AM EST Office Visit Hematology/Oncology at [address] [phone] Cl Hess MD [facility] [place] [address] [address] HEMATOLOGY AND ONCOLOGY [place], [place] [phone] 04/09/2024 10:00 AM EST Infusion Hematology Oncology at [address] [phone] 04/23/2024 9:30 AM EST Office Visit Hematology/Oncology at [address] [phone] Cl Hess MD [facility] [place] [address] [address] HEMATOLOGY AND ONCOLOGY [place], [place] [phone] 04/23/2024 10:00 AM EST Infusion Hematology Oncology at [address] [phone] 05/18/2024 4:30 PM EDT TH Visit (TeleHealth) [place] [address] Malachi Rothman MD [facility] [place] [address] 09/24/2024 9:00 AM EDT Office Visit Radiation Oncology at [address] [phone] Ping Moore PA [facility] [place] [address] documented as of this encounter Visit Diagnoses Diagnosis Presence of internal carotid stent documented in this encounter Care Teams Steam Fitter Supervisor Maintenance Relationship Specialty Start Date End Date Tristen Hunter MD [address] [place] [address] [place] [address] PCP - General Family Medicine 07/04/23 documented as of this encounter
--- OUTSIDE RECORDS SUMMARY | 2024-03-26 10:35 | XMS_ITS | Encounter Summary ---
[place] [address] Care Team Providers Care Gerontological Nurse Practitioner Name Role Phone Tristen Hunter MD Primary Care Provider [phone] Encounter Details Date Type Department Care Team (Latest Contact Info) Description 08/23/2023 Travel Social History Tobacco Use Types Packs/Day Years Used Date Smoking Tobacco: Former Cigarettes 4 30 1 963 - 1992 Smokeless Tobacco: Never Alcohol Use Standard Drinks/Week Comments Yes 7 (1 standard drink = 0.6 oz pur e alcohol) [facility] Utilities Answer Date Recorded In the past 12 months has [employer], gas, oil, or water company threatened [...] AM EST Office Visit Hematology/Oncology at [address] [phone] Cl Hess MD [facility] [place] [address] Yessi Renee APRN [address] [place] [address] DR HEMATOLOGY AND ONCOLOGY [place], [place] [address] 04/09/2024 10:00 AM EST Infusion Hematology Oncology at [address] [phone] 04/23/2024 9:30 AM EST Office Visit Hematology/Oncology at [address] [phone] Cl Hess MD [facility] [place] [address] Yessi Renee APRN [address] [place] [address] DR HEMATOLOGY AND ONCOLOGY [place], [place] [address] 04/23/2024 10:00 AM EST Infusion Hematology Oncology at [address] [phone] 05/18/2024 4:30 PM EDT TH Visit (TeleHealth) [place] [address] Malachi Rothman MD [facility] [place] [address] 09/24/2024 9:00 AM EDT Office Visit Radiation Oncology at [address] [phone] Ping Moore PA [facility] DR [place] [address] documented as of this encounter Visit Diagnoses Not on filedocumented in this encounter Care Teams Gerontological Nurse Practitioner Relationship Specialty Start Date End Date Tristen Hunter MD [address] [place] [address] [place] [address] PCP - General Family Medicine 07/04/23 documented as of this encounter
--- OUTSIDE RECORDS SUMMARY | 2024-03-26 10:35 | XMS_ITS | Encounter Summary ---
Author Organization [facility] [place] [address] Care Team Providers Care Curriculum Specialist Name Role Phone Tristen Hunter MD Primary Care Provider [phone] Reason for Visit * Diagnostic Test (Routine) - Closed Specialty Diagnoses / Procedures Referred By Marques livingston Referred To Contact Diagnoses Symptomatic stenosis of both carotid arteries Procedures Carotid Duplex, Bilateral Basim Barr MD [facility] [place] [address] [facility] Vascular Lab [address] [place] [address] Referral ID Status Reason Start Date Expiration Date V isits Requested Visits Authorized [id number] Closed Specialty Service Requested 10/23/2022 11/26/2023 1 1 Encounter Details Date Type Department Care Team (Late st Contact Info) Description 10/11/2023 10:00 AM EDT Tech [place] [address] Giacomo Queen Symptomatic stenosis of both carotid arteries Social History Tobacco Use Types Packs/Day Years Used Date Smoking Tobacco: Former Cigarettes 4 30 1 963 - 1992 Smokeless Tobacco: Never Alcohol Use Standard Drinks/Week Comments Yes 7 (1 standard drink = 0.6 oz pur e alcohol) [facility] Utilities Answer Date Recorded In the [...] AM EST Office Visit Hematology/Oncology at [address] [phone] Cl Hess MD [facility] [place] [address] [address] HEMATOLOGY AND ONCOLOGY [place], [place] [phone] 04/09/2024 10:00 AM EST Infusion Hematology Oncology at [address] [phone] 04/23/2024 9:30 AM EST Office Visit Hematology/Oncology at [address] [phone] Cl Hess MD [facility] [place] [address] [address] HEMATOLOGY AND ONCOLOGY [place], [place] [phone] 04/23/2024 10:00 AM EST Infusion Hematology Oncology at [address] [phone] 05/18/2024 4:30 PM EDT TH Visit (TeleHealth) [place] [address] Malachi Rothman MD [facility] [place] [address] 09/24/2024 9:00 AM EDT Office Visit Radiation Oncology at [address] [phone] Ping Moore PA [facility] HEMATOLOGY [place] [address] documented as of this encounter Procedures Procedure Name Priority Date/Time Associated Diagnosis Comments CAROTID DUPLEX, BILATERAL Routine 10/11/2023 9:30 AM EDT Symptomatic stenosis of both carotid arteries documented in this encounter Results * Carotid Duplex, Bilateral (10/11/2023 9:30 AM EDT) VB Text Report Department: Vascular Surgery Lab Patient: [id number] (THA JARRETT) CPT: 33885 Referring Physician: BASIM BARR ?? Indications:Rig ht [...] AM EDT Basim Barr MD VASCULAR ORDERABLES Performing Organization Address City/State/[facility] Co de Phone Number [facility] documented in this encounter Visit Diagnoses Diagnosis Symptomatic stenosis of both carotid arteries documented in this encounter Care Teams Curriculum Specialist Relationship Specialty Start Date End Date Tristen Hunter MD [address] [place] [address] [place] [address] PCP - General Family Medicine 07/04/23 documented as of this encounter
--- OUTSIDE RECORDS SUMMARY | 2024-03-26 10:35 | XMS_ITS | Encounter Summary ---
Author Organization [facility] Address [facility] [place] [address] Care Team Providers Care Hand Tacker Name Role Phone Tristen Hunter MD Primary Care Provider [phone] Encounter Details Date Type Department Care Team (Late st Contact Info) Description 08/20/2023 Orders Only Radiation Oncology at [address] [phone] Ping Moore PA [facility] DR [place] [address] Malignant neoplasm of prostate Social History Tobacco Use Types Packs/Day Years Used Date Smoking Tobacco: Former Cigarettes 4 30 1 - 1992 Smokeless Tobacco: Never Alcohol Use Standard Drinks/Week Comments Yes 7 (1 standard drink = 0.6 oz pur e alcohol) [facility] Utilities Answer Date Recorded In the past 12 months has [employer] electric, gas, oil, or water company threatened [...] AM EST Office Visit Hematology/Oncology at [address] [phone] Cl Hess MD [facility] [place] [address] [address] [place] [address] 04/09/2024 10:00 AM EST Infusion Hematology Oncology at [address] [phone] 04/23/2024 9:30 AM EST Office Visit Hematology/Oncology at [address] [phone] Cl Hess MD [facility] [place] [address] [address] [place] [address] 04/23/2024 10:00 AM EST Infusion Hematology Oncology at [address] [phone] 05/18/2024 4:30 PM EDT TH Visit (TeleHealth) [place] [address] Malachi Rothman MD [facility] [place] [address] 09/24/2024 9:00 AM EDT Office Visit Radiation Oncology at [address] [phone] Ping Moore PA [facility] DR [place] [address] documented as of this encounter Visit Diagnoses Diagnosis Malignant neoplasm of prostate documented in this encounter Care Teams Hand Tacker Relationship Specialty Start Date End Date Tristen Hunter MD [address] [place] [address] [place] [address] PCP - General Family Medicine 07/04/23 documented as of this encounter
--- OUTSIDE RECORDS SUMMARY | 2024-03-26 10:35 | XMS_ITS | Encounter Summary ---
[place] [address] Care Team Providers Care Utility Plant Operative Name Role Phone Tristen Hunter MD Primary Care Provider [phone] Encounter Details Date Type Department Care Team [...] Recorded In the past 12 months has [employer] electric, gas, oil, or water company threatened [...] AM EST Office Visit Hematology/Oncology at [address] [phone] Cl Hess MD [facility] [place] [address] Yessi Renee APRN [address] [place] [address] DR HEMATOLOGY AND ONCOLOGY [place], [place] [address] 04/09/2024 10:00 AM EST Infusion Hematology Oncology at [address] [phone] 04/23/2024 9:30 AM EST Office Visit Hematology/Oncology at [address] [phone] Cl Hess MD [facility] [place] [address] Yessi Renee APRN [address] [place] [address] DR HEMATOLOGY AND ONCOLOGY [place], [place] [address] 04/23/2024 10:00 AM EST Infusion Hematology Oncology at [address] [phone] 05/18/2024 4:30 PM EDT TH Visit (TeleHealth) [place] [address] Malachi Rothman MD [facility] [place] [address] 09/24/2024 9:00 AM EDT Office Visit Radiation Oncology at [address] [phone] Ping Moore PA [facility] DR HEMATOLOGY [place] [address] documented as of this encounter Visit Diagnoses Not on filedocumented in this encounter Care Teams Utility Plant Operative Relationship Specialty Start Date End Date Tristen Hunter MD [address] [place] [address] [place] [address] PCP - General Family Medicine 07/04/23 documented as of this encounter
--- OUTSIDE RECORDS SUMMARY | 2024-03-26 10:35 | XMS_ITS | Encounter Summary ---
Author Organization [facility] Address [facility] [place] [address] Care Team Providers Care Hplc Chemist Name Role Phone Tristen Hunter MD Primary Care Provider [phone] Encounter Details Date Type Department Care Team (Late st Contact Info) Description 10/04/2023 9:00 AM EDT Office Visit Hematology/Oncology at [address] [phone] Cl Hess MD [facility] [place] [address] Yessi Renee, [place] [address] [place] [address] DR HEMATOLOGY [place] [address] Malignant neoplasm of head of pancreas Social History Tobacco Use Types Packs/Day Years Used Date Smoking Tobacco: Former Cigarettes 4 30 1 963 - 1992 Smokeless Tobacco: Never Alcohol Use Standard Drinks/Week Comments Yes 7 (1 standard drink = 0.6 oz pur e alcohol) [facility] Utilities Answer Date Recorded In [...] periduodenal or perilesional adenopathy was appreciated Impression: [id number] pancreas head mass lesion with biliary and [...] disease/disease progression on interim staging evaluation. E. [facility] second read of CT c/a/p from 05/22/23 [...] no worsening of symptoms. 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 While in [facility], he presented with chest pain and [...] 06/07/23. Pathology was requested for review at [facility] and we also requested that images be [...] in the absence of cold, hypersensitivity reactions, angina/[place] and others. He was given an informational handout regarding mFolfirinox. We reviewed his case at [facility] on 06/18/23. The Ct from 05/22/23 was [...] plan was for a blood draw in [facility] once he starts his infusions. If genetic testing showed a BRCA or PALB2 mutation, he may be eligible for a clinical trial looking at theuse olaparib following completion of chemotherapy and surgery to see if this improves RFS. He will be followed also by our clinical psychiatric specialist, Lupe Velasquez. On 07/12/23 he began [...] AM EST Office Visit Hematology/Oncology at [address] [phone] Cl Hess MD [facility] [place] [address] [address] HEMATOLOGY [place] [address] 04/09/2024 10:00 AM EST Infusion Hematology Oncology at [address] [phone] 04/23/2024 9:30 AM EST Office Visit Hematology/Oncology at [address] [phone] Cl Hess MD [facility] [place] [address] [address] HEMATOLOGY [place] [address] 04/23/2024 10:00 AM EST Infusion Hematology Oncology at [address] [phone] 05/18/2024 4:30 PM EDT TH Visit (TeleHealth) [place] [address] Malachi Rothman MD [facility] [place] [address] 09/24/2024 9:00 AM EDT Office Visit Radiation Oncology at [address] [phone] Ping Moore PA [facility] DR [place] [address] documented as of this encounter Visit Diagnoses Diagnosis Malignant neoplasm of head of pancreas documented in this encounter Care Teams Hplc Chemist Relationship Specialty Start Date End Date Tristen Hunter MD [address] [place] [address] [place] [address] PCP - General Family Medicine 07/04/23 documented as of this encounter
--- OUTSIDE RECORDS SUMMARY | 2024-03-26 10:35 | XMS_ITS | Encounter Summary ---
Author Organization [facility] Address [facility] [place] [address] Care Team Providers Care Head Of Partner Development Name Role Phone Tristen Hunter MD Primary Care Provider [phone] Encounter Details Date Type Department Care Team (Late st Contact Info) Description 09/02/2023 Interpretation Only Radiology Library at [facility] [place] [phone] Unknown None Social History Tobacco Use Types Packs/Day Years Used Date Smoking Tobacco: Former Cigarettes 4 30 1 963 - 1992 Smokeless Tobacco: Never Alcohol Use Standard Drinks/Week Comments Yes 7 (1 standard drink = 0.6 oz pur e alcohol) [facility] Utilities Answer Date Recorded In the past 12 months has e [employer], gas, oil, or water company threatened to [...] AM EST Office Visit Hematology/Oncology at [address] [phone] Cl Hess MD [facility] [place] [address] Yessi Renee APRN [address] [place] [address] HEMATOLOGY AND ONCOLOGY [place], [place] [address] 04/09/2024 10:00 AM EST Infusion Hematology Oncology at [address] [phone] 04/23/2024 9:30 AM EST Office Visit Hematology/Oncology at [address] [phone] Cl Hess MD [facility] [place] [address] Yessi Renee APRN [address] [place] [address] [place] [address] 04/23/2024 10:00 AM EST Infusion Hematology Oncology at [address] [phone] 05/18/2024 4:30 PM EDT TH Visit (TeleHealth) [place]iation [place] [address] Malachi Rothman MD [facility] [place] [address] 09/24/2024 9:00 AM EDT Office Visit Radiation Oncology at [address] [phone] Ping Moore PA [facility] DR HEMATOLOGY [place] [address] documented as of this encounter Procedures Procedure [...] only. Unknown IMG FILM LIBRARY ORD ERABLES [place], [place] documented in this encounter Visit Diagnoses Not on filedocumented in this encounter Care Teams Head Of Partner Development Relationship Specialty Start Date End Date Tristen Hunter MD [address] [place] [address] [place] [address] PCP - General Family Medicine 07/04/23 documented as of this encounter
--- OUTSIDE RECORDS SUMMARY | 2024-03-26 10:35 | XMS_ITS | Encounter Summary ---
Author Organization [facility] Address [facility] [place] [address] Care Team Providers Care Band Saw Operator Name Role Phone Tristen Hunter MD Primary Care Provider [phone] Reason for Visit * Reason Comments Chemotherapy Folfirinox # 6 * Treatment/Therapy Plan Authorization (Routine) - Authorized Specialty Diagnoses / Procedures Referred By Contac t Referred To Contact Diagnoses Malignant neoplasm of prostate Cl Hess MD [facility] [place] [address] Stj Hem Onc Infusion [address] [place] [phone] Referral ID Status Reason Start Date Expiration Date V isits Requested Visits Authorized [id number] Authorized 07/11/2023 07/10/2024 99 107 Encounter Details Date Type Department Care Team (Late st Contact Info) Description 09/20/2023 9:30 AM EDT Infusion Hematology Oncology at [address] [phone] Malignant neoplasm of prostate Social History Tobacco Use Types Packs/Day Years Used Date Smoking Tobacco: Former Cigarettes 3 1992 Smokeless Tobacco: Never Alcohol Use Standard Drinks/Week Comments Yes 7 (1 standard drink = 0.6 oz pur e alcohol) [facility] Utilities Answer Date Recorded In [...] be disconnected on Saturday09/22/23 at 1230pm at [facility] port draw, left message for them about this REACTIONS (DESCRIPTION, TIME, INTERVENTION AND EFFECTIVENESS) none ASSESSMENT Wero Sadler was awake, alert and he tolerated treatment well. PLAN Return to clinic per routine. documented in this encounter Plan of Treatment Upcoming Encounters Date Type Department Care Team (Late st Contact Info) Description 04/09/2024 9:30 AM EST Office Visit Hematology/Oncology at [address] [phone] Cl Hess MD [facility] [place] [address] Yessi Renee APRN [address] [place] [address] [place] [address] 04/09/2024 10:00 AM EST Infusion Hematology Oncology at [address] [phone] 04/23/2024 9:30 AM EST Office Visit Hematology/Oncology at [address] [phone] Cl Hess MD [facility] [place] [address] Yessi Renee APRN [address] [place] [address] DR HEMATOLOGY AND ONCOLOGY [place], [place] [address] 04/23/2024 10:00 AM EST Infusion Hematology Oncology at [address] [phone] 05/18/2024 4:30 PM EDT TH Visit (TeleHealth) [place] [phone] Malachi Rothman MD [facility] [place] [address] 09/24/2024 9:00 AM EDT Office Visit Radiation Oncology at [address] [phone] Ping Moore PA [facility] DR [place] [address] documented as of this encounter Visit Diagnoses [...] 2 minutes is a recommendation from the deck specialist. Administer prior to chemotherapy., Routine Given 09/20/2023 [...] mg documented in this encounter Care Teams Band Saw Operator Relationship Specialty Start Date End Date Tristen Hunter MD [address] [place] [address] [place] [address] PCP - General Family Medicine 07/04/23 documented as of this encounter
--- OUTSIDE RECORDS SUMMARY | 2024-03-26 10:35 | XMS_ITS | Encounter Summary ---
Author Organization [facility] Address [place] [address] Care Team Providers Care Mutual Fund Sales Agent Name Role Phone Tristen Hunter MD Primary Care Provider [phone] Encounter Details Date Type Department Care Team (Late st Contact Info) Description 09/02/2023 3:45 PM EDT Ancillary Procedure Radiology Library at [facility] [place] [phone] Unknown None Social History Tobacco Use Types Packs/Day Years Used Date Smoking Tobacco: Former Cigarettes 4 30 1 963 - 1992 Smokeless Tobacco: Never Alcohol Use Standard Drinks/Week Comments Yes 7 (1 standard drink = 0.6 oz pur e alcohol) [facility] Utilities Answer Date Recorded In the past 12 months has [employer], gas, oil, or water company threatened [...] AM EST Office Visit Hematology/Oncology at [address] [phone] Cl Hess MD [facility] [place] [address] Yessi Renee APRN [address] [place] [address] [place] [address] 04/09/2024 10:00 AM EST Infusion Hematology Oncology at [address] [phone] 04/23/2024 9:30 AM EST Office Visit Hematology/Oncology at [address] [phone] Cl Hess MD [facility] [place] [address] Yessi Renee APRN [address] [place] [address] DR HEMATOLOGY AND ONCOLOGY [place], [place] [address] 04/23/2024 10:00 AM EST Infusion Hematology Oncology at [address] [phone] 05/18/2024 4:30 PM EDT TH Visit (TeleHealth) [place] [address] Malachi Rothman MD [facility] [place] [address] 09/24/2024 9:00 AM EDT Office Visit Radiation Oncology at [address] [phone] Ping Moore PA [facility] DR [place] [address] documented as of this encounter Procedures Procedure [...] on filedocumented in this encounter Care Teams Mutual Fund Sales Agent Relationship Specialty Start Date End Date Tristen Hunter MD [address] [place] [address] [place] [address] PCP - General Family Medicine 07/04/23 documented as of this encounter
--- OUTSIDE RECORDS SUMMARY | 2024-03-26 10:35 | XMS_ITS | Encounter Summary ---
[place] [address] Care Team Providers Care Electronic Warfare Technical Name Role Phone Tristen Hunter MD Primary Care Provider [phone] Encounter Details Date Type Department Care Team [...] Recorded In the past 12 months has [employer], gas, oil, or water company threatened [...] AM EST Office Visit Hematology/Oncology at [address] [phone] Cl Hess MD [facility] [place] [address] Yessi Renee APRN [address] [place] [address] DR HEMATOLOGY AND ONCOLOGY [place], [place] [address] 04/09/2024 10:00 AM EST Infusion Hematology Oncology at [address] [phone] 04/23/2024 9:30 AM EST Office Visit Hematology/Oncology at [address] [phone] Cl Hess MD [facility] [place] [address] Yessi Renee APRN [address] [place] [address] DR HEMATOLOGY AND ONCOLOGY [place], [place] 13[address] 04/23/2024 10:00 AM EST Infusion Hematology Oncology at [address] [phone] 05/18/2024 4:30 PM EDT TH Visit (TeleHealth) [place] [address] Malachi Rothman MD [facility] DR [place] [address] 09/24/2024 9:00 AM EDT Office Visit Radiation Oncology at [address] [phone] Ping Moore PA [facility] DR HEMATOLOGY [place] [address] documented as of this encounter Visit Diagnoses Not on filedocumented in this encounter Care Teams Electronic Warfare Technical Relationship Specialty Start Date End Date Tristen Hunter MD [address] [place] [address] [place] [address] PCP - General Family Medicine 07/04/23 documented as of this encounter
--- OUTSIDE RECORDS SUMMARY | 2024-03-26 10:35 | XMS_ITS | Encounter Summary ---
Author Organization [facility] [place] [address] Care Team Providers Care Software Engineering Analyst Name Role Phone Tristen Hunter MD Primary Care Provider [phone] Encounter Details Date Type Department Care Team (Latest Contact Info) Description 10/04/2023 10:00 AM EDT Clinical Support Hematology/Oncology at [address] [phone] [facility] DR HEMATOLOGY [place] [address] Malignant neoplasm of head of pancreas Social History Tobacco Use Types Packs/Day Years Used Date Smoking Tobacco: Former Cigarettes 4 30 1 - 1992 Smokeless Tobacco: Never Alcohol Use Standard Drinks/Week Comments Yes 7 (1 standard drink = 0.6 oz pur e alcohol) [facility] Utilities Answer Date Recorded In the past 12 months has [employer], gas, oil, or water company threatened [...] AM EST Office Visit Hematology/Oncology at [address] [phone] Cl Hess MD [facility] [place] [address] [address] [place]AT[place] [address] 04/09/2024 10:00 AM EST Infusion Hematology Oncology at [address] [phone] 04/23/2024 9:30 AM EST Office Visit Hematology/Oncology at [address] [phone] Cl Hess MD [facility] [place] [address] [address] [place] [address] 04/23/2024 10:00 AM EST Infusion Hematology Oncology at [address] [phone] 05/18/2024 4:30 PM EDT TH Visit (TeleHealth) [place] [address] Malachi Rothman MD [facility] [place] [address] 09/24/2024 9:00 AM EDT Office Visit Radiation Oncology at [address] [phone] Ping Moore PA [facility] HEMATOLOGY [place] [address] documented as of this encounter Visit Diagnoses Diagnosis Malignant neoplasm of head of pancreas documented in this encounter Care Teams Software Engineering Analyst Relationship Specialty Start Date End Date Tristen Hunter MD [address] [place] [address] [place] [address] PCP - General Family Medicine 07/04/23 documented as of this encounter
--- OUTSIDE RECORDS SUMMARY | 2024-03-26 10:35 | XMS_ITS | Encounter Summary ---
Author Organization [facility] [place] [address] Care Team Providers Care Speech Lang Path Name Role Phone Tristen Hunter MD Primary Care Provider [phone] Encounter Details Date Type Department Care Team (Late st Contact Info) Description 10/17/2023 Telephone Hematology/Oncology at [address] [phone] [facility] DR [place] [address] Social History Tobacco Use Types Packs/Day Years [...] 9:30 AM EST Office Visit Hematology/Oncology at [address] [phone] Cl Hess MD [facility] [place] [address] [address] HEMATOLOGY AND ONCOLOGY [place], [place] [phone] 04/09/2024 10:00 AM EST Infusion Hematology Oncology at [address] [phone] 04/23/2024 9:30 AM EST Office Visit Hematology/Oncology at [address] [phone] Cl Hess MD [facility] [place] [address] Yessi Renee, [address] HEMATOLOGY AND ONCOLOGY [place], [place] [address] 04/23/2024 10:00 AM EST Infusion Hematology Oncology at [address] [phone] 05/18/2024 4:30 PM EDT TH Visit (TeleHealth) [place] [address] Malachi Rothman MD [facility] [place] [address] 09/24/2024 9:00 AM EDT Office Visit Radiation Oncology at [address] [phone] Ping Moore PA [facility] HEMATOLOGY [place] [address] documented as of this encounter Visit Diagnoses Not on filedocumented in this encounter Care Teams Speech Lang Path Relationship Specialty Start Date End Date Tristen Hunter MD [address] [place] [address] [place] [address] PCP - General Family Medicine 07/04/23 documented as of this encounter
--- OUTSIDE RECORDS SUMMARY | 2024-03-26 10:35 | XMS_ITS | Encounter Summary ---
Author Organization [facility] Address [facility] [place] [address] Care Team Providers Care Telecom Manager Name Role Phone Tristen Hunter MD Primary Care Provider [phone] Encounter Details Date Type Department Care Team (Latest Contact Info) Description 09/03/2023 1:45 PM EDT TH Visit (TeleHealth) Radiation Oncology at [address] [phone] Ping Moore PA [facility] [place] [address] Malignant neoplasm of prostate (Primary [...] In the past 12 months has e [employer], gas, oil, or water [employer] threatened to shut off services in your [...] Moore PA - 09/03/2023 1:45 PM EDT [facility] [place] [address] TELEHEALTH FOLLOW-UP: Patient: Wero Sadler : 1950 [...] Doing well. 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 Not going to [place] this winter, as his right-sided vision is [...] capsule by mouth nightly. 30 capsule 11 mzomdi-ikmcxhmf-ibwtgvu DR (Creon 24) 24,000-76,000 -120,[address] [...] Take 25 mg by mouth daily. omega 6-ege-yjl-fish oil 250-350-1,000 mg Capsule Take 1,000 mg [...] (= 6 months from 06/25/23 labs) Labs ([facility]): PSA Wero Sadlre had the opportunity to ask questions, which [...] AM EST Office Visit Hematology/Oncology at [address] [phone] Cl Hess MD [facility] [place] [address] [address] HEMATOLOGY AND ONCOLOGY [place], [place] [phone] 04/09/2024 10:00 AM EST Infusion Hematology Oncology at [address] [phone] 04/23/2024 9:30 AM EST Office Visit Hematology/Oncology at [address] [phone] Cl Hess MD [facility] [place] [address] [address] HEMATOLOGY AND ONCOLOGY [place], [place] [phone] 04/23/2024 10:00 AM EST Infusion Hematology Oncology at [address] [phone] 05/18/2024 4:30 PM EDT TH Visit (TeleHealth) [place] [address] Malachi Rothman MD [facility] [place] [address] 09/24/2024 9:00 AM EDT Office Visit Radiation Oncology at [address] [phone] Ping Moore PA [facility] [place] [address] documented as of this encounter Visit Diagnoses Diagnosis Malignant neoplasm of prostate- Primary S/P radiotherapy Convalescence following radiotherapy documented in this encounter Care Teams Telecom Manager Relationship Specialty Start Date End Date Tristen Hunter MD [address] [place] [address] [place] [address] PCP - General Family Medicine 07/04/23 documented as of this encounter
--- OUTSIDE RECORDS SUMMARY | 2024-03-26 10:35 | XMS_ITS | Encounter Summary ---
[place] [address] Care Team Providers Care Donor Services Team Leader Name Role Phone Tristen Hunter MD Primary Care Provider [phone] Encounter Details Date Type Department Care Team (Late st Contact Info) Description 09/24/2023 Telephone [place] [phone] Laina Cope Social History Tobacco Use Types Packs/Day Years Used Date Smoking Tobacco: Former Cigarettes 4 30 1 963 - 1992 Smokeless Tobacco: Never Alcohol Use Standard Drinks/Week Comments Yes 7 (1 standard drink = 0.6 oz pur e alcohol) [facility] Utilities Answer Date Recorded In the [...] AM EST Office Visit Hematology/Oncology at [address] [phone] Cl Hess MD [facility] [place] [address] [address] HEMATOLOGY AND ONCOLOGY [place], [place] [address] 04/09/2024 10:00 AM EST Infusion Hematology Oncology at [address] [phone] 04/23/2024 9:30 AM EST Office Visit Hematology/Oncology at [address] [phone] Cl Hess MD [facility] [place] [address] [address] [place] [address] 04/23/2024 10:00 AM EST Infusion Hematology Oncology at [address] [phone] 05/18/2024 4:30 PM EDT TH Visit (TeleHealth) [place] [address] Malachi Rothman MD [facility] [place] [address] 09/24/2024 9:00 AM EDT Office Visit Radiation Oncology at [address] [phone] Ping Moore PA [facility] DR HEMATOLOGY [place] [address] documented as of this encounter Visit Diagnoses Not on filedocumented in this encounter Care Teams Donor Services Team Leader Relationship Specialty Start Date End Date Tristen Hunter MD [address] [place] [address] [place] [address] PCP - General Family Medicine 07/04/23 documented as of this encounter
--- OUTSIDE RECORDS SUMMARY | 2024-03-26 10:35 | XMS_ITS | Encounter Summary ---
[place] [address] Care Team Providers Care Herb Grower Name Role Phone Tristen Hunter MD Primary Care Provider [phone] Encounter Details Date Type Department Care Team (Latest Contact Info) Description 10/11/2023 Travel Social History Tobacco Use Types Packs/Day Years Used Date Smoking Tobacco: Former Cigarettes 4 30 1 963 - 1992 Smokeless Tobacco: Never Alcohol Use Standard Drinks/Week Comments Yes 7 (1 standard drink = 0.6 oz pur e alcohol) [facility] Utilities Answer Date Recorded In the past 12 months has [employer] electric, gas, oil, or water company threatened [...] AM EST Office Visit Hematology/Oncology at [address] [phone] Cl Hess MD [facility] [place] [place] [address] Yessi Renee APRN [address] [place] [address] DR HEMATOLOGY AND ONCOLOGY [place], [place] [address] 04/09/2024 10:00 AM EST Infusion Hematology Oncology at [address] [phone] 04/23/2024 9:30 AM EST Office Visit Hematology/Oncology at [address] [phone] Cl Hess MD [facility] [place] [address] Yessi Renee APRN [address] [place] [address] DR HEMATOLOGY AND ONCOLOGY [place], [place] [address] 04/23/2024 10:00 AM EST Infusion Hematology Oncology at [address] [phone] 05/18/2024 4:30 PM EDT TH Visit (TeleHealth) [place] [address] Malachi Rothman MD [facility] [place] [address] 09/24/2024 9:00 AM EDT Office Visit Radiation Oncology at [address] [phone] Ping Moore PA [facility] DR HEMATOLOGY [place] [address] documented as of this encounter Visit Diagnoses Not on filedocumented in this encounter Care Teams Herb Grower Relationship Specialty Start Date End Date Tristen Hunter MD [address] [place] [address] [place] [address] PCP - General Family Medicine 07/04/23 documented as of this encounter
--- OUTSIDE RECORDS SUMMARY | 2024-03-26 10:35 | XMS_ITS | Encounter Summary ---
Author Organization [facility] [place] [address] Care Team Providers Care Payroll Accounting Clerk Name Role Phone Tristen Hunter MD Primary Care Provider [phone] Encounter Details Date Type Department Care Team (Latest Contact Info) Description 09/20/2023 10:00 AM EDT Clinical Support Hematology/Oncology at [address] [phone] [facility] DR HEMATOLOGY [place] [address] Malignant neoplasm of head of pancreas Social History Tobacco Use Types Packs/Day Years Used Date Smoking Tobacco: Former Cigarettes 4 30 1 3 - 1992 Smokeless Tobacco: Never Alcohol Use Standard Drinks/Week Comments Yes 7 (1 standard drink = 0.6 oz pur e alcohol) [facility] Utilities Answer Date Recorded In the past 12 months has [employer] electric, gas, oil, or water company [...] AM EST Office Visit Hematology/Oncology at [address] [phone] Cl Hess MD [facility] [place] [place] [address] Yessi Renee APRN [address] [place] [address] DR HEMATOLOGY AND ONCOLOGY [place], [place] [phone] 04/09/2024 10:00 AM EST Infusion Hematology Oncology at [address] [phone] 04/23/2024 9:30 AM EST Office Visit Hematology/Oncology at [address] [phone] Cl Hess MD [facility] [place] [address] Yessi Renee APRN [address] [place] [address] [place] [address] 04/23/2024 10:00 AM EST Infusion Hematology Oncology at [address] [phone] 05/18/2024 4:30 PM EDT TH Visit (TeleHealth) [place] [address] Malachi Rothman MD [facility] [place] [address] 09/24/2024 9:00 AM EDT Office Visit Radiation Oncology at [address] [phone] Ping Moore PA [facility] DR HEMATOLOGY [place] [address] documented as of this encounter Visit Diagnoses Diagnosis Malignant neoplasm of head of pancreas documented in this encounter Care Teams Payroll Accounting Clerk Relationship Specialty Start Date End Date Tirsten Hunter MD [address] [place] [address] [place] [address] PCP - General Family Medicine 07/04/23 documented as of this encounter
--- OUTSIDE RECORDS SUMMARY | 2024-03-26 10:35 | XMS_ITS | Encounter Summary ---
[place] [address] Care Team Providers Care Framing Manager Name Role Phone Tristen Hunter MD Primary Care Provider [phone] Reason for Referral * Consultation (Routine) - Duplicate Referral Specialty Diagnoses / Procedures Referred By Marques livingston Referred To Contact Radiation Oncology Diagnoses Malignant neoplasm of head of pancreas Yessi Renee APRN [address] [place] [address] [place] [address] St Rad Onc Office [address] [place] [phone] Referral ID Status Reason Start Date Expiration Date Visits Requested Visits Authorized [id number] Duplicate Referral Consult, Test & Treat 09/20/2023 09/19/2024 1 1 Encounter Details Date Type Department Care Team (Late st Contact Info) Description 09/20/2023 9:00 AM EDT Office Visit Hematology/Oncology at [address] [phone] Cl Hess MD [facility] [place] [address] Yessi Renee APRN [address] [place] [address] DR HEMATOLOGY AND ONCOLOGY [place], [place] [phone] Malignant neoplasm of head of pancreas Social History Tobacco Use Types Packs/Day Years Used Date Smoking Tobacco: Former Cigarettes 07 01 1 3 - 1992 Smokeless Tobacco: Never Alcohol Use Standard Drinks/Week Comments Yes 7 (1 standard drink = 0.6 oz pur e alcohol) [facility] Utilities Answer Date Recorded In the past [...] periduodenal or perilesional adenopathy was appreciated Impression: [id number] pancreas head mass lesion with biliary and [...] disease/disease progression on interim staging evaluation. E. [facility] second read of CT c/a/p from 05/22/23 [...] AM's reading was 106. 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 Pathology was requested for review at [facility] and we also requested that images be sent. His case was reviewed at [facility] on 06/18/23. The Ct from 05/22/23 [...] will be followed also by our clinical pigment processor, Lupe Velasquez. On 07/12/23 he began neoadjuvant [...] AM EST Office Visit Hematology/Oncology at [address] [phone] Cl Hess MD [facility] [place] [address] HEMATOLOGY AND ONCOLOGY [place], [place] [address] 04/09/2024 10:00 AM EST Infusion Hematology Oncology at [address] [phone] 04/23/2024 9:30 AM EST Office Visit Hematology/Oncology at [address] [phone] Cl Hess MD [facility] [place] [address] [place] [address] 04/23/2024 10:00 AM EST Infusion Hematology Oncology at [address] [phone] 05/18/2024 4:30 PM EDT TH Visit (TeleHealth) [place] [address] Malachi Rothman MD [facility] [place] [address] 09/24/2024 9:00 AM EDT Office Visit Radiation Oncology at [address] [phone] Ping Moore PA [facility] [place] [address] Scheduled Referrals Name Type Priority Associated Diagnoses Orde r Schedule Referral to Radiation Oncology Outpatient Referral Routine Malignant neoplasm of head of pancreas Ordered: 09/20/2023 documented as of this encounter Visit Diagnoses Diagnosis Malignant neoplasm of head of pancreas documented in this encounter Care Teams Framing Manager Relationship Specialty Start Date End Date Tristen Hunter MD [address] [place] [address] [place] [address] PCP - General Family Medicine 07/04/23 documented as of this encounter
--- OUTSIDE RECORDS SUMMARY | 2024-03-26 10:35 | XMS_ITS | Encounter Summary ---
[place] [address] Care Team Providers Care Senior Project Architect Name Role Phone Tristen Hunter MD Primary Care Provider [phone] Encounter Details Date Type Department Care Team (Latest Contact Info) Description 08/09/2023 Travel Social History Tobacco Use Types Packs/Day Years Used Date Smoking Tobacco: Former Cigarettes 4 30 1 963 - 1992 Smokeless Tobacco: Never Alcohol Use Standard Drinks/Week Comments Yes 7 (1 standard drink = 0.6 oz pur e alcohol) [facility] Utilities Answer Date Recorded In the past 12 months has [employer] electric, gas, oil, or water company threatened [...] AM EST Office Visit Hematology/Oncology at [address] [phone] Cl Hess MD [facility] [place] [address] Yessi Renee APRN [address] [place] [address] DR HEMATOLOGY AND ONCOLOGY [place], [place] [address] 04/09/2024 10:00 AM EST Infusion Hematology Oncology at [address] [phone] 04/23/2024 9:30 AM EST Office Visit Hematology/Oncology at [address] [phone] Cl Hess MD [facility] [place] [address] Yessi Renee APRN [address] [place] [address] DR HEMATOLOGY AND ONCOLOGY [place], [place] [address] 04/23/2024 10:00 AM EST Infusion Hematology Oncology at [address] [phone] 05/18/2024 4:30 PM EDT TH Visit (TeleHealth) [place] [address] Malachi Rothman MD [facility] [place] [address] 09/24/2024 9:00 AM EDT Office Visit Radiation Oncology at [address] [phone] Ping Moore PA [facility] DR [place] [address] documented as of this encounter Visit Diagnoses Not on filedocumented in this encounter Care Teams Senior Project Architect Relationship Specialty Start Date End Date Tristen Hunter MD [address] [place] [address] [place] [address] PCP - General Family Medicine 07/04/23 documented as of this encounter
--- OUTSIDE RECORDS SUMMARY | 2024-03-26 10:36 | XMS_ITS | Encounter Summary ---
[place] [address] Care Team Providers Care Vice President Business Development Name Role Phone Tristen Hunter MD Primary Care Provider [phone] Encounter Details Date Type Department Care Team (Latest Contact Info) Description 08/06/2023 Specialty [place] [phone] Betty Tovar [facility] Refill Coordination - Manual (lipase/protease/amyl ase) for Enzyme Social History Tobacco Use Types Packs/Day Years Used Date Smoking Tobacco: Former Cigarettes 4 30 1 963 - 1992 Smokeless Tobacco: Never Alcohol Use Standard Drinks/Week Comments Yes 7 (1 standard drink = 0.6 oz pur e alcohol) [facility] Utilities Answer Date Recorded In the [...] AM EST Office Visit Hematology/Oncology at [address] [phone] Cl Hess MD [facility] [place] [address] HEMATOLOGY AND ONCOLOGY [place], [place] [address] 04/09/2024 10:00 AM EST Infusion Hematology Oncology at [address] [phone] 04/23/2024 9:30 AM EST Office Visit Hematology/Oncology at [address] [phone] Cl Hess MD [facility] [place] [address] HEMATOLOGY AND ONCOLOGY [place], [place] [address] 04/23/2024 10:00 AM EST Infusion Hematology Oncology at [address] [phone] 05/18/2024 4:30 PM EDT TH Visit (TeleHealth) [place] [address] Malachi Rothman MD [facility] [place] [address] 09/24/2024 9:00 AM EDT Office Visit Radiation Oncology at [address] [phone] Ping Moore PA [facility] [place]AT[place] [address] documented as of this encounter Visit Diagnoses Not on filedocumented in this encounter Care Teams Vice President Business Development Relationship Specialty Start Date End Date Tristen Hunter MD [address] [place] [address] [place] [address] PCP - General Family Medicine 07/04/23 documented as of this encounter
--- OUTSIDE RECORDS SUMMARY | 2024-03-26 10:36 | XMS_ITS | Encounter Summary ---
Author Organization [facility] Address [facility] [place] [address] Care Team Providers Care Brick Kiln Burner Name Role Phone Tristen Hunter MD Primary Care Provider [phone] Encounter Details Date Type Department Care Team (Late st Contact Info) Description 07/05/2023 1:30 PM EDT - 07/05/2023 3:15 PM EDT Surgery [place] [phone] Charu Balbuena MD [facility] [place] [address] LAPAROSCOPY, DIAGNOSTIC, ABDOMEN (WRVU 5.14) Social History Tobacco Use Types Packs/Day Years Used Date Smoking Tobacco: Former Cigarettes 4 30 1 1992 Smokeless Tobacco: Never Alcohol Use Standard Drinks/Week Comments Yes 7 (1 standard drink = 0.6 oz pur e alcohol) [facility] Utilities Answer Date Recorded In the past 12 months has [employer], gas, oil, or water company threatened to [...] closest emergency room or call the hospital shaping machine operator at [phone] and ask for physician bondactor machine operator covering for your physician. Questions or problems after 5pm or on a weekend: Call the [facility] shaping machine operator at and ask for the physician bondactor machine operator covering for your doctor. * Patient Instructions* [...] please call the surgery clinic nurses at [phone]. If you have any concerns at night or when the clinic is closed then please call the main [facility] number and ask to speak with the general surgery resident bondactor machine operator. That number is [phone]. Dr. Balbuena will see you back after [...] mg by mouth as needed. 05/20/2023 omega 1-cfw-xkc-fish oil 250-350-1,000 mg Capsule Take 1,000 mg [...] Maximum 16 mg in 24 hours 10/30/2023 wpwmfv-ginhrnuh-qbbq ase DR (Creon 24) 24,000-76,000 -120,000 unit [...] Balbuena MD - 07/05/2023 2:26 PM EDT [facility] Operative Note Patient Name: Wero Sadler : [id number] MR#: [id number] Case Date: 07/05/2023 Surgeon: Surgeon(s) and Role: [...] liver. No biopsies were performed. An 8 Ang[place] Mediport PowerPort was placed successfully via the [...] AM EST Office Visit Hematology/Oncology at [address] [phone] [facility] [place] [address] [address] HEMATOLOGY AND ONCOLOGY [place], [place] [phone] 04/09/2024 10:00 AM EST Infusion Hematology Oncology at [address] [phone] 04/23/2024 9:30 AM EST Office Visit Hematology/Oncology at [address] [phone] [facility] [place] [address] [address] HEMATOLOGY AND ONCOLOGY [place], [place] [address] 04/23/2024 10:00 AM EST Infusion Hematology Oncology at [address] [phone] 05/18/2024 4:30 PM EDT TH Visit (TeleHealth) [place] [address] [facility] [place] [address] 09/24/2024 9:00 AM EDT Office Visit Radiation Oncology at [address] [phone] [facility] DR HEMATOLOGY [place] [address] documented as of this encounter Procedures Procedure Name Priority Date/Time Associated Diagnosis Comments XR CHEST ONE VIEW Routine 07/05/2023 4:1 1 PM EDT XR FLUORO NO RAD <1HR - OR USE Routine 07/05/2023 2:50 PM EDT Fluoroscopy Exam Up To 1 Hr Phy Or Oth Hlth Care Prov (04483) Yes 07/05/2023 1:44 PM EDT [facility] Insert Tunneled CV Cath w SubQ Port, Age 5 Yrs or Older (36705) Yes 07/05/2023 1:44 PM EDT [facility] Lap, Diagnostic Abdomen (86025) Yes 07/05/2023 1:44 PM EDT [facility] POCT GLUCOSE Routine 07/05/2023 12:32 PM EDT documented in this encounter Results * XR Chest One View (07/05/2023 4:11 PM EDT) WORKSTATION ID [id number] RAD Anatomical Region Laterality Modality Chest N/A Digital Radiogra phy Impressions 07/06/2023 7:33 AM EDT No pneumothorax. Thank you for letting us participate in the care of this patient. ??If you are a health care provider and have any questions regarding this report, please contact the number below. ??For patients who have questions please contact the health managed care coordinator that requested your imaging first. ? Electronically signed by: Shelly Lombardo MD, [facility] ([phone]), at 07/06/2023 7:33 AM Narrative 07/06/2023 7:33 [...] have questions please contactthe health managed care coordinator that requested your imaging first. Electronically signed by: Shelly Lombardo MD, [facility]([phone]), at 07/06/2023 7:33 AM Charu Balbuena MD IMG DX ORDERABLES * XR Fluoro No Rad <1Hr - OR Use (07/05/2023 2:50 PM EDT) Narrative [employer], Auditing User - 07/05/2023 3:10 PM EDT This exam is auto-finalizing. No interpretation was done. Charu Balbuena MD IMG FLUORO ORDERAB LES * POCT Glucose (07/05/2023 12:32 PM EDT) Glucose, POC 160 65 - 199 mg/dL [facility] Comment: Supplemental ranges: <140 mg/dL before meals <180 mg/dL all other times of the day Blood 07/05/2023 12:3 2 PM EDT 07/05/2023 12:32 PM EDT Charu Balbuena MD POINT OF CARE TEST [place] [address] documented in this encounter Visit Diagnoses Not [...] Routine 1425 (Given - Provid er: Charu Balbuean MD)1443 (Given - Provider: Charu Balbuena MD)1505 [...] NS.) documented in this encounter Care Teams Brick Kiln Burner Relationship Specialty Start Date End Date Tristen Hunter MD [address] [place] [address] [place] [address] PCP - General Family Medicine 07/04/23 documented as of this encounter
--- OUTSIDE RECORDS SUMMARY | 2024-03-26 10:36 | XMS_ITS | Encounter Summary ---
Author Organization [facility] Address [facility] [place] [address] Care Team Providers Care Reconciling Clerk Name Role Phone Alo Carey Primary Care Provider [phone] Encounter Details Date Type Department Care Team (Late st Contact Info) Description 07/02/2023 2:00 PM EDT - 07/02/2023 3:30 PM EDT Surgery [place] [address] Pako Lopez MD [facility] [place] [address] UPPER EUS- ENDOSCOPIC ULTRASOUND (WRVU 3.47) Social History Tobacco Use Types Packs/Day Years Used Date Smoking Tobacco: Former Cigarettes 4 1992 Smokeless Tobacco: Never Alcohol Use Standard Drinks/Week Comments Yes 7 (1 standard drink = 0.6 oz pur e alcohol) [facility] Utilities Answer Date Recorded In the past 12 months has [employer] gas, oil, or water company threatened to [...] mg by mouth as needed. 05/20/2023 omega 4-kmf-rvf-fish oil 250-350-1,000 mg Capsule Take 1,000 mg [...] Maximum 16 mg in 24 hours 10/30/2023 atamit-hnliuanj-knmy ase DR (Creon 24) 24,000-76,000 -120,000 unit [...] uncovered metal stent placed Apr 2023 in [facility], concern for stent occlusion Patient Active Problem [...] Operative Note Patient Name: Wero Sadler : [id number] MR#: [id number] Case Date: 07/02/2023 Surgeon: Surgeon(s) and Role: [...] AM EST Office Visit Hematology/Oncology at [address] [phone] Cl Hess MD [facility] [place] [address] Yessi Renee APRN [address] [place] [address] DR HEMATOLOGY AND ONCOLOGY [place], [place] [address] 04/09/2024 10:00 AM EST Infusion Hematology Oncology at [address] [phone] 04/23/2024 9:30 AM EST Office Visit Hematology/Oncology at [address] [phone] Cl Hess MD [facility] [place] [address] Yessi Renee APRN [address] [place] [address] DR HEMATOLOGY AND ONCOLOGY [place], [place] [address] 04/23/2024 10:00 AM EST Infusion Hematology Oncology at [address] [phone] 05/18/2024 4:30 PM EDT TH Visit (TeleHealth) [place] [address] Malachi Rothman MD [facility] DR [place] [address] 09/24/2024 9:00 AM EDT Office Visit Radiation Oncology at [address] [phone] Ping Moore PA [facility] DR HEMATOLOGY [place] [address] documented as of this encounter Procedures Procedure Name Priority Date/Time Associated Diagnosis Comments XR ERCP Routine 07/02/2023 3:29 PM EDT RADIOFREQUENCY ABLATION 07/02/2023 2:39 PM EDT Bets- 1-2 weeks EUS/ERCP patient with pancreatic cancer s/p ercp with stent in [facility]. Persistently elevated bilirubin. Ercp, W/Removal Stone, Lonnie/Pancr Ducts ([id number]) 07/02/2023 2:39 PM EDT Bets- 1-2 weeks EUS/ERCP patient with pancreatic cancer s/p ercp with stent in [facility]. Persistently elevated bilirubin. Ercp, Diagnostic ([id number]) 07/02/2023 2:39 PM EDT Bets- 1-2 weeks EUS/ERCP patient with pancreatic cancer s/p ercp with stent in [facility]. Persistently elevated bilirubin. Endoscopic Us Exam, Esoph ([id number]) 07/02/2023 2:39 PM EDT Bets- 1-2 weeks EUS/ERCP patient with pancreatic cancer s/p ercp with stent in [facility]. Persistently elevated bilirubin. ERCP Routine 07/02/2023 2:22 PM EDT documented in this encounter Results * XR ERCP (07/02/2023 3:29 PM EDT) Narrative VJ FALL - 07/02/2023 3:31 PM EDT See PACS for result report. Pako Lopez MD IM FILM LIBRARY ORD ERABLES [place], [place] * ERCP (07/02/2023 2:22 PM EDT) ERCP [facility] Procedure Date: 07/02/2023 2:22 PM ? Patient Name: Wero Sadler ? Date of : 1950 ? Age: 73 ? Order #: [id number] ? Instrument Name: [id number] ? Procedure: ? ERCP Indications: ? Elevated liver enzymes Providers: ? Real Pemberton ? Agnes Russell, Slim Larkin MD: ?Alo Carey Medicines: ? General Anesthesia [...] A biliary stent was visible on the machine woodworking sander film. The ? esophagus was successfully intubated [...] Procedure Code(s): ? --- Professional --- ? 60944, Esophagogastroduod enoscopy, ? flexible, transoral; diagnostic, ? [...] ? prosthesis, initial encounter CPT copyright 2021 [employer]. All rights reserved. The codes documented in this report are preliminary and upon repairer review may be revised to meet current [...] CRNA) documented in this encounter Care Teams Reconciling Clerk Relationship Specialty Start Date End Date Alo Carey DO [address] [place] [address] [place] [address] PCP - General Internal Medicine 08/31/20 07/03/23 documented as of this encounter
--- OUTSIDE RECORDS SUMMARY | 2024-03-26 10:36 | XMS_ITS | Encounter Summary ---
Author Organization [facility] Address [facility] [place] [address] Care Team Providers Care Plater Hot Dip Name Role Phone Tristen Hunter MD Primary Care Provider [phone] Encounter Details Date Type Department Care Team (Late st Contact Info) Description 07/05/2023 11:35 AM EDT - 07/05/2023 4:44 PM EDT Hospital Encounter [place] [phone] Charu Balbuena MD [facility] [place] [address] Discharge Disposition: Home Social History Tobacco Use Types Packs/Day Years Used Date Smoking Tobacco: Former Cigarettes 4 30 1 1992 Smokeless Tobacco: Never Alcohol Use Standard Drinks/Week Comments Yes 7 (1 standard drink = 0.6 oz pur e alcohol) [facility] Utilities Answer Date Recorded In the past 12 months has [employer], gas, oil, or water [employer] threatened to shut off services in your [...] closest emergency room or call the hospital lead furnace operator at [phone] and ask for physician electronic device repairer covering for your physician. Questions or problems after 5pm or on a weekend: Call the [facility] lead furnace operator at and ask for the physician electronic device repairer covering for your doctor. * Patient Instructions* [...] please call the surgery clinic nurses at [phone]. If you have any concerns at night or when the clinic is closed then please call the main [facility] number and ask to speak with the general surgery resident electronic device repairer. That number is [phone]. Dr. Balbuena will see you back after [...] mg by mouth as needed. 05/20/2023 omega 3-qhu-qhb-fish oil 250-350-1,000 mg Capsule Take 1,000 mg [...] Maximum 16 mg in 24 hours 10/30/2023 mjeyhh-ulsjcunj-ofaj ase (Creon 24) 24,000-76,000 -120,000 unit capsuleIndications:M [...] MD - 07/05/2023 2:26 PM EDT [facility] Operative Note Patient Name: Wero Salder : [id number] MR#: [id number] Case Date: 07/05/2023 Surgeon: Surgeon(s) and Role: [...] liver. No biopsies were performed. An 8 Romansh Mediport PowerPort was placed successfully via the [...] AM EST Office Visit Hematology/Oncology at [address] [phone] Cl Hess MD [facility] [place] [address] HEMATOLOGY AND ONCOLOGY [place], [place] [phone] 04/09/2024 10:00 AM EST Infusion Hematology Oncology at [address] [phone] 04/23/2024 9:30 AM EST Office Visit Hematology/Oncology at [address] [phone] Cl Hess MD [facility] [place] [address] HEMATOLOGY AND ONCOLOGY [place], [place] [phone] 04/23/2024 10:00 AM EST Infusion Hematology Oncology at [address] [phone] 05/18/2024 4:30 PM EDT TH Visit (TeleHealth) [place] [address] Maalchi Rothman MD [facility] [place] [address] 09/24/2024 9:00 AM EDT Office Visit Radiation Oncology at [address] [phone] Ping Moore PA [facility] [place] [address] documented as of this encounter Procedures Procedure Name Priority Date/Time Associated Diagnosis Comments XR CHEST ONE VIEW Routine 07/05/2023 4:1 1 PM EDT XR FLUORO NO RAD <1HR - OR USE Routine 07/05/2023 2:50 PM EDT Fluoroscopy Exam Up To 1 Hr Phy Or Oth Hlth Care Prov (98557) Yes 07/05/2023 1:44 PM EDT [facility] Insert Tunneled CV Cath w SubQ Port, Age 5 Yrs or Older (05922) Yes 07/05/2023 1:44 PM EDT [facility] Lap, Diagnostic Abdomen ([id number]) Yes 07/05/2023 1:44 PM EDT [facility] POCT GLUCOSE Routine 07/05/2023 12:32 PM EDT documented in this encounter Results * XR Chest One View (07/05/2023 4:11 PM EDT) WORKSTATION ID [id number] RAD Anatomical Region Laterality Modality Chest N/A Digital Radiogra phy Impressions 07/06/2023 7:33 AM EDT No pneumothorax. Thank you for letting us participate in the care of this patient. ??If you are a health care provider and have any questions regarding this report, please contact the number below. ??For patients who have questions please contact the health home visit field care manager that requested your imaging first. ? Narrative [...] who have questions please contactthe health home visit field care manager that requested your imaging first. Charu Balbuena [...] MD POINT OF CARE TEST [place] [address] documented in this encounter Visit Diagnoses Not on filedocumented in this encounter Active and Recently Administered Medications Times are shown in EDT. PRN Medication Order 07/03/2023 07/04/2023 07/05/2023 BUpivacaine (pf) (Marcaine) (2.5 mg/mL) 0.25% injection (CANCELED) PRN, Starting on Sat07/05/23 at 1425, Until Sat07/05/23 at 1853, Intra-Operative (Intra-Procedure), Routine 1425 (Given - Provid er: Chrau Balbuena MD)1443 (Given - Provider: Charu Balbuena [...] PRN, Starting on Sat07/05/23 at 1445, Until 07/05/23 at 1853, Intra-Operative (Intra-Procedure), Routine 1445 (Given - Provid er: Charu Balbuena MD - Comment: 1000 units mixed with 100 mLs NS.) documented in this encounter Care Teams Plater Hot Dip Relationship Specialty Start Date End Date Tristen Hunter MD [address] [place] [address] [place] [address] PCP - General Family Medicine 07/04/23 documented as of this encounter
--- OUTSIDE RECORDS SUMMARY | 2024-03-26 10:36 | XMS_ITS | Encounter Summary ---
Author Organization [facility] Address [facility] [place] [address] Care Team Providers Care Sap Project Manager Name Role Phone Tristen Hunter MD Primary Care Provider [phone] Encounter Details Date Type Department Care Team (Late st Contact Info) Description 07/12/2023 10:00 AM EDT Office Visit Hematology/Oncology at [address] [phone] lC Hess MD [facility] [place] [address] Yessi Renee, ARNOLD [address] [place] [address] DR HEMATOLOGY [place] [address] Malignant neoplasm of head of [...] No 06/04/2023 Housing Stability Vital Sign Answer Emek e Recorded In the last 12 months, [...] periduodenal or perilesional adenopathy was appreciated Impression: [id number] pancreas head mass lesion with biliary and [...] disease/disease progression on interim staging evaluation. . [facility] [...] been helpful for him. 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 [facility] he presented with chest pain and [...] 06/07/23. Pathology was requested for review at ST. [...] regarding mFolfirinox. We reviewed his case at [facility] on 06/18/23. The Ct from [...] genetic testing and he met with Tao Ronald on 06/13/23. The plan was for a blood draw in [facility] once he starts his infusions. If genetic testing showed a BRCA or PALB2 mutation, he may be eligible for a clinical trial looking at theuse olaparib following completion of chemotherapy and surgery to see if this improves RFS. He will be followed also by our clinical federal judicial law clerk, Lupe Velasquez. Plan: Begin neoadjuvant therapy with mFolfirinox. 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 RTC - 2 weeks documented in this encounter Plan of Treatment Upcoming Encounters Date Type Department Care Team (Late st Contact Info) Description 04/09/2024 9:30 AM EST Office Visit Hematology/Oncology at [address] [phone] Cl Hess MD [facility] [place] [address] Yessi Renee APRN [address] [place] [address] DR HEMATOLOGY AND ONCOLOGY [place], [place] [phone] 04/09/2024 10:00 AM EST Infusion Hematology Oncology at [address] [phone] 04/23/2024 9:30 AM EST Office Visit Hematology/Oncology at [address] [phone] Cl Hess MD [facility] [place] [address] Yessi Renee APRN [address] [place] [address] DR HEMATOLOGY AND ONCOLOGY [place], [place] [address] 04/23/2024 10:00 AM EST Infusion Hematology Oncology at [address] [phone] 05/18/2024 4:30 PM EDT TH Visit (TeleHealth) [place] [address] Malachi Rothman MD [facility] [place] [address] 09/24/2024 9:00 AM EDT Office Visit Radiation Oncology at [address] [phone] Ping Moore PA [facility] DR [place]EMAT[place] [address] documented as of this encounter Visit Diagnoses Diagnosis Malignant neoplasm of head of pancreas Drug-induced nausea and vomiting Nausea with vomiting documented in this encounter Care Teams Sap Project Manager Relationship Specialty Start Date End Date Tristen Hunter MD [address] [place] [address] [place] [address] PCP - General Family Medicine 07/04/23 documented as of this encounter
--- OUTSIDE RECORDS SUMMARY | 2024-03-26 10:36 | XMS_ITS | Encounter Summary ---
Author Organization [facility] [place] [address] Care Team Providers Care Lathe Sander Name Role Phone Tristen Hunter MD Primary Care Provider [phone] Encounter Details Date Type Department Care Team (Late st Contact Info) Description 07/25/2023 Orders Only Hematology [place] [address] Cl Hess MD [facility] DR ONCOLOGY [place] [id number] Social History Tobacco Use Types Packs/Day Years Used Date Smoking Tobacco: Former Cigarettes 4 30 1 963 - 1992 Smokeless Tobacco: Never Alcohol Use Standard Drinks/Week Comments Yes 7 (1 standard drink = 0.6 oz pur e alcohol) [facility] Utilities Answer Date Recorded [...] AM EST Office Visit Hematology/Oncology at [address] [phone] Cl Hess MD [facility] [place] [address] Yessi Renee APRN [address] [place] [address] [place] [address] 04/09/2024 10:00 AM EST Infusion Hematology Oncology at [address] [phone] 04/23/2024 9:30 AM EST Office Visit Hematology/Oncology at [address] [phone] Cl Hess MD [facility] [place] [address] [address] HEMATOLOGY AND ONCOLOGY [place], [place] [address] 04/23/2024 10:00 AM EST Infusion Hematology Oncology at [address] [phone] 05/18/2024 4:30 PM EDT TH Visit (TeleHealth) [place] [address] Malachi Rothman MD [facility] [place] [address] 09/24/2024 9:00 AM EDT Office Visit Radiation Oncology at [address] [phone] Ping Moore PA [facility] DR [place] [address] documented as of this encounter Visit Diagnoses Not on filedocumented in this encounter Care Teams Lathe Sander Relationship Specialty Start Date End Date Tristen Hunter MD [address] [place] [address] [place] [address] PCP - General Family Medicine 07/04/23 documented as of this encounter
--- OUTSIDE RECORDS SUMMARY | 2024-03-26 10:36 | XMS_ITS | Encounter Summary ---
Author Organization [facility] [place] [address] Care Team Providers Care Learning Support Teacher Name Role Phone Tristen Hunter MD Primary Care Provider [phone] Encounter Details Date Type Department Care Team (Latest Contact Info) Description 07/26/2023 9:00 AM EDT Clinical Support Hematology/Oncology at [address] [phone] [facility] DR HEMATOLOGY [place] [address] Malignant neoplasm of prostate Social History Tobacco Use Types Packs/Day Years Used Date Smoking Tobacco: Former Cigarettes 4 1 3 - 1992 Smokeless Tobacco: Never Alcohol Use Standard Drinks/Week Comments Yes 7 (1 standard drink = 0.6 oz pur e alcohol) [facility] Utilities Answer Date Recorded In the past 12 months has [employer], gas, oil, or water company threatened [...] Velasquez, RD - 07/26/2023 9:00 AM EDT [facility] Initial Assessment Patient Name: Wero Sadler Diagnosis: [...] today. Patient came alone to clinic, used [employer] for a ride. He lives in [place], [place] with his brother. His brother does most of the cooking at home; patient sometimes fixes himself breakfast. He is blind. 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 He has IDDM, butdoes not strictly [...] year 07/31/22-07/05/23 Estimated needs based on 83.7 [id number] kcals (25-30 kcal/kg) 109-126 g protein (1.3-1.5 [...] AM EST Office Visit Hematology/Oncology at [address] [phone] Cl Hess MD [facility] [place] [address] Yessi Renee, [address] HEMATOLOGY AND ONCOLOGY [place], [place] [phone] 04/09/2024 10:00 AM EST Infusion Hematology Oncology at [address] [phone] 04/23/2024 9:30 AM EST Office Visit Hematology/Oncology at [address] [phone] Cl Hess MD [facility] [place] [address] [address] HEMATOLOGY AND ONCOLOGY [place], [place] [phone] 04/23/2024 10:00 AM EST Infusion Hematology Oncology at [address] [phone] 05/18/2024 4:30 PM EDT TH Visit (TeleHealth) [place] [address] Malachi Rothman MD [facility] [place] [address] 09/24/2024 9:00 AM EDT Office Visit Radiation Oncology at [address] [phone] Ping Moore PA [facility] DR HEMATOLOGY [place] [address] documented as of this encounter Visit Diagnoses Diagnosis Malignant neoplasm of prostate documented in this encounter Care Teams Learning Support Teacher Relationship Specialty Start Date End Date Tristen Hunter MD [address] [place] [address] [place] [address] PCP - General Family Medicine 07/04/23 documented as of this encounter
--- OUTSIDE RECORDS SUMMARY | 2024-03-26 10:36 | XMS_ITS | Encounter Summary ---
[place] [address] Care Team Providers Care Finishing Room Operator Name Role Phone YungAlo santiago Primary Care Provider [phone] Encounter Details Date Type Department Care Team (Late st Contact Info) Description 07/01/2023 Telephone [place] [address] Larisa Wilkerson, RN Social History [...] - 07/01/2023 1:05 PM EDT Per OR extraction supervisor Rocío, patient was asked to stop his Farxlga today for his upcoming surgery. documented in this encounter Plan of Treatment Upcoming Encounters Date Type Department Care Team (Late st Contact Info) Description 04/09/2024 9:30 AM EST Office Visit Hematology/Oncology at [address] [phone] Cl Hess MD [facility] [place] [address] Yessi Renee APRN [address] [place] [address] DR HEMATOLOGY [place] [address] 04/09/2024 10:00 AM EST Infusion Hematology Oncology at [address] [phone] 04/23/2024 9:30 AM EST Office Visit Hematology/Oncology at [address] [phone] Cl Hess MD [facility] [place] [address] Yessi Renee APRN [address] [place] [address] DR HEMATOLOGY [place] [address] 04/23/2024 10:00 AM EST Infusion Hematology Oncology at [address] [phone] 05/18/2024 4:30 PM EDT TH Visit (TeleHealth) [place] [address] Malachi Rothman MD [facility] [place] [address] 09/24/2024 9:00 AM EDT Office Visit Radiation Oncology at [address] [phone] Ping Moore PA [facility] DR HEMATOLOGY [place] [address] documented as of this encounter Visit Diagnoses Not on filedocumented in this encounter Care Teams Finishing Room Operator Relationship Specialty Start Date End Date Alo Carey DO [address] [place] [address] [place] [phone] PCP - General Internal Medicine 08/31/20 07/03/23 documented as of this encounter
--- OUTSIDE RECORDS SUMMARY | 2024-03-26 10:36 | XMS_ITS | Encounter Summary ---
[place] [address] Care Team Providers Care Organic Section Technical Lead Name Role Phone Alo Carey DO Primary Care Provider [phone] Encounter Details Date Type Department Care Team (Late st Contact Info) Description 07/02/2023 2:36 PM EDT Anesthesia [place] [address] Natasha Solares MD Anesthesia Record Procedure Summary [...] by Laura Walsh RN PIV 07/02/23; 1345; lrta-pgc-qtdwck catheter system; 20 gauge; cephalic vein (lateral side of arm), right; Natahn Hastings; LDA not present upon assessment; 07/05/23; [...] Procedure Summary Date: 07/02/23 Room / Location: [facility] ENDO 3 / [facility] ENDOSCOPY Anesthesia Start: 1436 Anesthesia Stop: 1536 Procedures: UPPER EUS- ENDOSCOPIC ULTRASOUND (WRVU 3.47) (Trunk) ERCP (WRVU 5.85) (Trunk) ERCP W/REMOVAL CALCULI/DEBRIS FROM BILARY/PANCREATIC DUCT(S) (WRVU 6.63) RADIOFREQUENCY ABLATION Diagnosis: (Bets- 1-2 weeks EUS/ERCP) (patient with pancreatic cancer s/p ercp with stent in [facility]. Persistently elevated bilirubin.) Surgeons: Pako Lopez MD Responsible Provider: Natasha Solares MD Anesthesia Type: general ASA Status: 3 All Anesthesia Providers: Anesthesiologist: Natasha Solares MD VACUUM PAN OPERATOR: Fredi Bernabe CRNA Vitals Value Taken Time BP 104/60 07/02/23 1540 Temp Pulse Resp SpO2 99 % 07/02/23 1550 Pain Level 0 07/02/23 1534 Vitals shown include unfiled device data. Patient Location: PACU/[facility] Level of Consciousness: Conscious but Sleepy [...] 20.72) performed by Ismael Wu MD at [facility] MAIN OR ??? PRO ARTHROPLASTY ACETABULAR/PROX FEM PROSTC AGRFT/ALGRFT Right 11/17/2021 TOTAL HIP ARTHROPLASTY - POSTERIOR (WRVU 20.72) performed by Ismael Wu MD at [facility] MAIN OR ??? PRO EXPLORATION NOT FOLLOWED BY SURG NECK ARTERY Right 07/14/2021 @EXPLORATION NOT FOLLOWED BY SURGICAL REPAIR, ARTERY; NECK (CAROTID OR SUBCLAVIAN) (WRVU 9.19) performed by Basim Barr MD at [facility] MAIN OR ??? PRO LASER VAPORIZATION SURGERY PROSTATE, COMPLETE Midline 02/02/2021 CYSTO, LASER TURP (WRVU 12.15) performed by Cayetano Engle MD at [facility] MAIN OR ??? PRO PLACE TRANSCATHETER STENT, CCA W EMBOLIC PROECT Right 07/14/2021 @TRANSCATH INTRAVASCULAR STENT,CAROTID,PERC,W\EMBOLIC PROT. (WRVU 18) performed by Basim Barr MD at [facility] MAIN OR Social History Tobacco [...] vascular procedure at [facility] in [place]: shaking Has tolerated [...] AD8 Informant: Other Informant 05/04/2021 11:00 AM Deila Champagne RN 4AT TOTAL Score: 1 07/14/2021 [...] with patient and spouse. Plan discussed with VACUUM PAN OPERATOR and attending. Anesthesia Screening documented in this encounter Plan of Treatment Upcoming Encounters Date Type Department Care Team (Late st Contact Info) Description 04/09/2024 9:30 AM EST Office Visit Hematology/Oncology at [address] [phone] Cl Hess MD [facility] [place] [address] Yessi Renee APRN [address] [place] [address] DR HEMATOLOGY [place] [address] 04/09/2024 10:00 AM EST Infusion Hematology Oncology at [address] [phone] 04/23/2024 9:30 AM EST Office Visit Hematology/Oncology at [address] [phone] Cl Hess MD [facility] [place] [address] Yessi Renee APRN [address] [place] [address] DR HEMATOLOGY AND ONCOLOGY [place], [place] [address] 04/23/2024 10:00 AM EST Infusion Hematology Oncology at [address] [phone] 05/18/2024 4:30 PM EDT TH Visit (TeleHealth) [place] [address] Malachi Rothman MD [facility] [place] [address] 09/24/2024 9:00 AM EDT Office Visit Radiation Oncology at [address] [phone] Ping Moore PA [facility] DR HEMATOLOGY [place] [address] documented as of this encounter Visit Diagnoses [...] 2% injection syringe Intravenous, PRN, Starting on 07/02/23 at 1444, Until 07/02/23 at 1538, Anesthesia Intra-op, Routine Given 07/02/2023 2:44 PM EDT 100 mg ondansetron (pf) (Zofran) (2 mg/mL) injection Intravenous, PRN, Starting on 07/02/23 at 1512, Until 07/02/23 at 1538, Anesthesia Intra-op, Routine Given 07/02/2023 3:12 PM EDT 4 mg propofoL (Diprivan) 10 mg/mL bolus injection (Anesthesia) Intravenous, PRN, Starting on 07/02/23 at 1444, Until 07/02/23 at 1538, Anesthesia Intra-op Given 07/02/2023 2:44 PM EDT 200 mg succinylcholine (Anectine;Quelicin) (20 mg/mL) injection Intravenous, PRN, Starting on 07/02/23 at 1444, Until 07/02/23 at 1538, Anesthesia Intra-op, Routine Given 07/02/2023 2:44 PM EDT 100 mg documented in this encounter Care Teams Organic Section Technical Lead Relationship Specialty Start Date End Date Alo Carey DO [address] [place] [address] [place] [address] PCP - General Internal Medicine 08/31/20 07/03/23 documented as of this encounter
--- OUTSIDE RECORDS SUMMARY | 2024-03-26 10:36 | XMS_ITS | Encounter Summary ---
[place] [address] Care Team Providers Care Lens Assorter Name Role Phone Tristen Hunter MD Primary Care Provider [phone] Encounter Details Date Type Department Care Team (Late st Contact Info) Description 07/04/2023 Notes Only H[place] [phone] Mary Sotelo, [facility] Social History Tobacco Use Types Packs/Day Years Used Date Smoking Tobacco: Former Cigarettes 4 30 1 963 - 1992 Smokeless Tobacco: Never Alcohol Use Standard Drinks/Week Comments Yes 7 (1 standard drink = 0.6 oz pur e alcohol) [facility] Utilities Answer Date Recorded In the past 12 months has [employer], gas, oil, or water company threatened to [...] this encounter Progress Notes * Mary Sotelo [facility] - 07/04/2023 11:47 AM EDT Clinical Oncology Pharmacist Note Oncology PGx Results PATIENT ID: Wero Sadler is a 73 y.o. male with pancreatic adenocarcinoma. Pharmacist interpretation of Oncology PGx results is as follows: Interpretation: Gene Based on most recent FDA, CPIC (Clinical Pharmacogenetics Implementation Consortium), and DPWG(Swiss pharmacogenetics working group) guidelines: DPYD Normal metabolizer - No action necessary. NUDT15 Normal metabolizer - No action necessary. TPMT Normal metabolizer - No action necessary. UGT1A1 Poor metabolizer - Dose adjustments recommended. UGT *28/*28 and [id number] IRINOTECAN/SACITUZUMAB GOVITECAN-hziy Per FDA labeling, when administered [...] increased, guided by the neutrophil count. (PMID: [id number]) Based on FDA and DPWG guidance, if [...] questions. Mary Sotelo RPH, PharmD PGY2 Oncology Power Cleaner Operator July 04, 2023 documented in this encounter Plan of Treatment Upcoming Encounters Date Type Department Care Team (Late st Contact Info) Description 04/09/2024 9:30 AM EST Office Visit Hematology/Oncology at [address] [phone] Cl Hess MD [facility] [place] [address] [address] HEMATOLOGY AND ONCOLOGY [place], [place] [phone] 04/09/2024 10:00 AM EST Infusion Hematology Oncology at [address] [phone] 04/23/2024 9:30 AM EST Office Visit Hematology/Oncology at [address] [phone] Cl Hess MD [facility] [place] [address] [address] HEMATOLOGY AND ONCOLOGY [place], [place] [address] 04/23/2024 10:00 AM EST Infusion Hematology Oncology at [address] [phone] 05/18/2024 4:30 PM EDT TH Visit (TeleHealth) [place] [address] Malachi Rothman MD [facility] [place] [address] 09/24/2024 9:00 AM EDT Office Visit Radiation Oncology at [address] [phone] Ping Moore PA [facility] [place] [address] documented as of this encounter Visit Diagnoses Not on filedocumented in this encounter Care Teams Lens Assorter Relationship Specialty Start Date End Date Tristen Hunter MD [address] [place] [address] [place] [address] PCP - General Family Medicine 07/04/23 documented as of this encounter
--- OUTSIDE RECORDS SUMMARY | 2024-03-26 10:36 | XMS_ITS | Encounter Summary ---
Author Organization [facility] [place] [address] Care Team Providers Care Trapper Animal Name Role Phone Tristen Hunter MD Primary Care Provider [phone] Encounter Details Date Type Department Care Team (Late st Contact Info) Description 07/24/2023 Orders Only Hematology [place] [address] Cl Hess MD [facility] [place] [address] Malignant neoplasm of head of pancreas; Pancreatic insufficiency Social History Tobacco Use Types Packs/Day Years Used Date Smoking Tobacco: Former Cigarettes 4 30 1 3 - 1992 Smokeless Tobacco: Never Alcohol Use Standard Drinks/Week Comments Yes 7 (1 standard drink = 0.6 oz pur e alcohol) [facility] Utilities Answer Date Recorded In the past 12 months has [employer], gas, oil, or water company threatened [...] AM EST Office Visit Hematology/Oncology at [address] [phone] Cl Hess MD [facility] [place] [address] [address] HEMATOLOGY AND ONCOLOGY [place], [place] [address] 04/09/2024 10:00 AM EST Infusion Hematology Oncology at [address] [phone] 04/23/2024 9:30 AM EST Office Visit Hematology/Oncology at [address] [phone] Cl Hess MD [facility] [place] [address] [address] HEMATOLOGY AND ONCOLOGY [place], [place] [phone] 04/23/2024 10:00 AM EST Infusion Hematology Oncology at [address] [phone] 05/18/2024 4:30 PM EDT TH Visit (TeleHealth) [place] [address] Malachi Rothman MD [facility] [place] [address] 09/24/2024 9:00 AM EDT Office Visit Radiation Oncology at [address] [phone] Ping Moore PA [facility] [place] [address] documented as of this encounter Visit Diagnoses Diagnosis Malignant neoplasm of head of pancreas Pancreatic insufficiency Other specified disease of pancreas documented in this encounter Care Teams Trapper Animal Relationship Specialty Start Date End Date Tristen Hunter MD [address] [place] [address] [place] [address] PCP - General Family Medicine 07/04/23 documented as of this encounter
--- OUTSIDE RECORDS SUMMARY | 2024-03-26 10:36 | XMS_ITS | Encounter Summary ---
Author Organization [facility] Address [facility] [place] [address] Care Team Providers Care Ms Access Database Developer Name Role Phone Tristen Hunter MD Primary Care Provider [phone] Encounter Details Date Type Department Care Team (Late st Contact Info) Description 07/26/2023 8:00 AM EDT Office Visit Hematology/Oncology at [address] [phone] Cl Hess MD [facility] [place] [address] Yessi Renee, ARNOLD [address] [place] [address] [place] [address] Malignant neoplasm of head of [...] periduodenal or perilesional adenopathy was appreciated Impression: [id number] pancreas head mass lesion with biliary and [...] with the first cycle. 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 While in [facility], he presented with chest pain [...] in the absence of cold, hypersensitivity reactions, angina/HI and others. He was given an informational handout regarding mFolfirinox. We reviewed his case at [facility] on 06/18/23. The Ct from [...] will be followed also by our clinical roll examiner, Lupe Velasquez. On 07/12/23 he began neoadjuvant [...] AM EST Office Visit Hematology/Oncology at [address] [phone] Cl Hess MD [facility] [address] HEMATOLOGY AND ONCOLOGY [place], [place] [phone] 04/09/2024 10:00 AM EST Infusion Hematology Oncology at [address] [phone] 04/23/2024 9:30 AM EST Office Visit Hematology/Oncology at [address] [phone] Cl Hess MD [facility] [address] HEMATOLOGY AND ONCOLOGY [place], [place] [phone] 04/23/2024 10:00 AM EST Infusion Hematology Oncology at [address] [phone] 05/18/2024 4:30 PM EDT TH Visit (TeleHealth) [place] [address] Malachi Rothman MD [facility] [place] [address] 09/24/2024 9:00 AM EDT Office Visit Radiation Oncology at [address] [phone] Ping Moore PA [facility] [place] [address] documented as of this encounter Visit Diagnoses Diagnosis Malignant neoplasm of head of pancreas documented in this encounter Care Teams Ms Access Database Developer Relationship Specialty Start Date End Date Tristen Hunter MD NPI: [id number] [place] [address] [place] [address] PCP - General Family Medicine 07/04/23 documented as of this encounter
--- OUTSIDE RECORDS SUMMARY | 2024-03-26 10:36 | XMS_ITS | Encounter Summary ---
Author Organization [facility] Address [facility] [place] [address] Care Team Providers Care Scientist Immunology Name Role Phone Tristen Hunter MD Primary Care Provider [phone] Reason for Visit * Reason Comments Chemotherapy Cycle 1 Day 1 FOLFIR INOX * Treatment/Therapy Plan Authorization (Routine) - Authorized Specialty Diagnoses / Procedures Referred By Contac t Referred To Contact Diagnoses Malignant neoplasm of prostate Cl Hess MD [facility] [place] [address] Stj Hem Onc Infusion [address] [place] [phone] Referral ID Status Reason Start Date Expiration Date V isits Requested Visits Authorized [id number] Authorized 07/11/2023 07/10/2024 99 107 Encounter Details Date Type Department Care Team (Late st Contact Info) Description 07/12/2023 10:30 AM EDT Infusion Hematology Oncology at [address] [phone] Malignant neoplasm of prostate Social History Tobacco [...] from the original note were not included. [facility] Infusion [facility] Genetics lab kit draw #[id number] Provider: Dr. Hess Test Requisition form competed if necessary (done electronically for genetics). Informational papergiven to patient, signed if needed, and patient agreed to lab draw. [facility]. lab kit blood drawn from: [ ] [...] and BSA by Mary Jiménez, [facility] onsite. REACTIONS (DESCRIPTION, TIME, INTERVENTION AND EFFECTIVENESS) [...] mL had infused. Anticipated date/time of disconnect: [facility] 07/14/23 @ 1345 Plan for disconnect: [facility] Disconnect contact number: [phone] Pt. chemo teaching instructions included: During clinic hours (8am-5pm Saturday-Saturday): pt. can call [phone] with questions or concerns. After clinic hours (5pm-8am Saturday-Saturday and weekends) pt can call [phone] and ask for the skip tender/oncologist destination sign repairer. Wero Sadler verbalized understanding of potential chemotherapy [...] AM EST Office Visit Hematology/Oncology at [address] [phone] Cl Hess MD [facility] [place] [address] [address] HEMATOLOGY [place] [address] 04/09/2024 10:00 AM EST Infusion Hematology Oncology at [address] [phone] 04/23/2024 9:30 AM EST Office Visit Hematology/Oncology at [address] [phone] Cl Hess MD [facility] [place] [address] [address] HEMATOLOGY [place] [address] 04/23/2024 10:00 AM EST Infusion Hematology Oncology at [address] [phone] 05/18/2024 4:30 PM EDT TH Visit (TeleHealth) [place] [address] Malachi Rothman MD [facility] [place] [address] 09/24/2024 9:00 AM EDT Office Visit Radiation Oncology at [address] [phone] Ping Moore PA [facility] [place] [address] documented as of this encounter Visit Diagnoses [...] 2 minutes is a recommendation from the bar tender. Administer prior to chemotherapy., Routine Given 07/12/2023 [...] mg documented in this encounter Care Teams Scientist Immunology Relationship Specialty Start Date End Date Tristen Hunter MD [address] [place] [address] [place] [address] PCP - General Family Medicine 07/04/23 documented as of this encounter
--- OUTSIDE RECORDS SUMMARY | 2024-03-26 10:36 | XMS_ITS | Encounter Summary ---
Author Organization [facility] Address [facility] [place] [address] Care Team Providers Care Inspector Set Up And Lay Out Name Role Phone Tristen Hunter MD Primary Care Provider [phone] Reason for Visit * Reason Comments Chemotherapy * Treatment/Therapy Plan Authorization (Routine) - Authorized Specialty Diagnoses / Procedures Referred By Contac t Referred To Contact Diagnoses Malignant neoplasm of prostate Cl Hess MD [facility] [place] [address] Stj Hem Onc Infusion [address] [place] [phone] Referral ID Status Reason Start Date Expiration Date V isits Requested Visits Authorized [id number] Authorized 07/11/2023 07/10/2024 99 107 Encounter Details Date Type Department Care Team (Late st Contact Info) Description 07/26/2023 8:30 AM EDT Infusion Hematology Oncology at [address] [phone] Malignant neoplasm of prostate Social History Tobacco Use Types Packs/Day Years Used Date Smoking Tobacco: Former Cigarettes 4 30 1 3 - 1992 Smokeless Tobacco: Never Alcohol Use Standard Drinks/Week Comments Yes 7 (1 standard drink = 0.6 oz pur e alcohol) [facility] Utilities Answer Date Recorded In [...] tolerated treatment well. PLAN Pump disconnect at [facility]. documented in this encounter Plan of Treatment Upcoming Encounters Date Type Department Care Team (Late st Contact Info) Description 04/09/2024 9:30 AM EST Office Visit Hematology/Oncology at [address] [phone] Cl Hess MD [facility] [place] [address] Yessi Renee APRN [address] [place] [address] DR HEMATOLOGY AND ONCOLOGY [place], [place] [address] 04/09/2024 10:00 AM EST Infusion Hematology Oncology at [address] [phone] 04/23/2024 9:30 AM EST Office Visit Hematology/Oncology at [address] [phone] Cl Hess MD [facility] [place] [address] Yessi Renee APRN [address] [place] [address] DR HEMATOLOGY AND ONCOLOGY [place], [place] [phone] 04/23/2024 10:00 AM EST Infusion Hematology Oncology at [address] [phone] 05/18/2024 4:30 PM EDT TH Visit (TeleHealth) Radiation [place] [address] Malachi Rothman MD [facility] [place] [address] 09/24/2024 9:00 AM EDT Office Visit Radiation Oncology at [address] [phone] Ping Moore PA [facility] DR [place] [address] documented as of this encounter Procedures Procedure Name Priority Date/Time Associated Diagnosis Comments POCT GLUCOSE Routine 07/26/2023 9:38 AM EDT POCT GLUCOSE Routine 07/26/2023 8:18 AM EDT documented in this encounter Results * (ABNORMAL) POCT Glucose (07/26/2023 9:38 AM EDT) [facility] Signature Glucose, POC 341(H) 65 - 199 mg/dL [facility] Comment: Supplemental ranges: <140 mg/dL before meals <180 mg/dL all other times of the day Blood 07/26/2023 9:38 AM EDT 07/26/2023 9:[address] Haresh Tyson MD POINT OF CARE TEST O DANIEL Performing Organization Address City/[facility]/ZIP Co de Phone Number [facility] [place] [address] * (ABNORMAL) POCT Glucose (07/26/2023 8:18 AM EDT) Glucose, POC 343(H) 65 - 199 mg/dL [facility] Comment: Supplemental ranges: <140 mg/dL before meals <180 mg/dL all other times of the day Blood 07/26/2023 8:18 AM EDT 07/26/2023 8:[address] Haresh Tyson MD POINT OF CARE TEST Brady SANCHEZ Performing Organization Address City/[facility]/ZIP Co de Phone Number [facility] [place] [address] documented in this encounter Visit Diagnoses Diagnosis [...] 2 minutes is a recommendation from the packing room inspector. Administer prior to chemotherapy., Routine Given [...] mL/hr documented in this encounter Care Teams Inspector Set Up And Lay Out Relationship Specialty Start Date End Date Tristen Hunter MD [address] [place] [address] [place] [address] PCP - General Family Medicine 07/04/23 documented as of this encounter
--- OUTSIDE RECORDS SUMMARY | 2024-03-26 10:36 | XMS_ITS | Encounter Summary ---
[place] [address] Care Team Providers Care Truck Crane Operator Helper Name Role Phone YungAlo santiago Primary Care Provider [phone] Encounter Details Date Type Department Care Team (Late st Contact Info) Description 06/28/2023 Telephone [place] [address] Marga Thorpe Social History Tobacco [...] in a correction (including now)? No 06/04/2023 Sex and Gender Information Value Date Recorded Sex Assigned at Not on file Gender Identity Not on file Sexual Orientation Not on file documented as of this encounter Miscellaneous Notes * Telephone Encounter - Marga Thorpe - 06/28/2023 1:06 PM EDT Wero Sadler [id number] Diagnosis/Indication: Bets- 1-2 weeks EUS/ERCP patient with pancreatic cancer s/p ercp with stent in [facility]. Persistently elevated bilirubin. Please review patient chart [...] procedure? No You must have a responsible republican who will drive you to your procedure, stay on campus for the entire duration of your procedure, and drive you home from your procedure. Who will likely be your screw driver operator for the procedure? *Please Verify the height [...] AM EST Office Visit Hematology/Oncology at [address] [phone] Cl Hess MD [facility] [place] [address] Yessi Renee APRN [address] [place] [address] DR [place] [address] 04/09/2024 10:00 AM EST Infusion Hematology Oncology at [address] [phone] 04/23/2024 9:30 AM EST Office Visit Hematology/Oncology at [address] [phone] Cl Hess MD [facility] [place] [address] Yessi Renee APRN [address] [place] [address] DR HEMAT[place]Y [place] [address] 04/23/2024 10:00 AM EST Infusion Hematology Oncology at [address] [phone] 05/18/2024 4:30 PM EDT TH Visit (TeleHealth) [place] [address] Malachi Rothman MD [facility] [place] [address] 09/24/2024 9:00 AM EDT Office Visit Radiation Oncology at [address] [phone] Ping Moore PA [facility] DR HEMATOLOGY [place] [address] documented as of this encounter Visit Diagnoses Not on filedocumented in this encounter Care Teams Truck Crane Operator Helper Relationship Specialty Start Date End Date Alo Carey DO [address] [place] [address] [place] [phone] PCP - General Internal Medicine 08/31/20 07/03/23 documented as of this encounter
--- OUTSIDE RECORDS SUMMARY | 2024-03-26 10:36 | XMS_ITS | Encounter Summary ---
[place] [address] Care Team Providers Care Cyanide Case Hardener Name Role Phone Tristen Hunter MD Primary Care Provider [phone] Encounter Details Date Type Department Care Team (Late st Contact Info) Description 07/05/2023 1:44 PM EDT Anesthesia Event [facility] [place] [address] Joe March MD [facility] [place] [address] Anesthesia Record Procedure Summary Procedure Name Responsible [...] by Laura Walsh RN PIV 07/05/23; 1222; xynr-eyp-rfkmgh catheter system; 20 gauge; median cubital vein [...] Procedure Summary Date: 07/05/23 Room / Location: [facility] [place] [address] [place] [address] OSC Anesthesia Start: 1343 Anesthesia Stop: 1553 Procedures: LAPAROSCOPY, DIAGNOSTIC, ABDOMEN (WRVU 5.14) (Abdomen) MARIO\AMELIA.CATHETER,TUNNELED, WITH SQ PORT OR PUMP OVER 5YR (WRVU 5.79) (Chest) FLUOROSCOPY (WRVU 0.3) Diagnosis: (PANCREAS CANCER) Surgeons: Charu Balbuena MD Responsible Provider: Joe March MD Anesthesia Type: general ASA Status: 3 All Anesthesia Providers: Anesthesiologist: Joe March MD Bore Miner Operator: Rafael Marinelli MD Vitals Value Taken Time BP 103/57 07/05/23 1542 Temp Pulse 54 07/05/23 1542 Resp 16 07/05/23 1542 SpO2 100 % 07/05/23 1542 Pain Level Patient Location: PACU/[facility] Level of Consciousness: Awake and Alert [...] ??? Colon adenocarcinoma 2009 recieved chemo in [place] ??? Coronary artery disease ??? Coronary artery [...] 20.72) performed by Ismael Wu MD at [facility] OR ??? PRO ARTHROPLASTY ACETABULAR/PROX FEM PROSTC AGRFT/ALGRFT Right 11/17/2021 TOTAL HIP ARTHROPLASTY - POSTERIOR (WRVU 20.72) performed by Ismael Wu MD at [facility] MAIN OR ??? PRO ENDOSCOPIC US EXAM, ESOPH N/A 07/02/2023 UPPER EUS- ENDOSCOPIC ULTRASOUND (WRVU 3.47) performed by Pako Lopez MD at [facility] ENDOSCOPY ??? PRO ERCP, W/REMOVAL STONE, TARYN/PANCR DUCTS 07/02/2023 ERCP W/REMOVAL CALCULI/DEBRIS FROM BILARY/PANCREATIC DUCT(S) (WRVU 6.63) performed by Pako Lopez MD at [facility] ENDOSCOPY ??? PRO ERCP,DIAGNOSTIC N/A 07/02/2023 ERCP (WRVU 5.85) performed by Pako Lopez MD at [facility] ENDOSCOPY ??? PRO EXPLORATION NOT FOLLOWED BY SURG NECK ARTERY Right 07/14/2021 @EXPLORATION NOT FOLLOWED BY SURGICAL REPAIR, ARTERY; NECK (CAROTID OR SUBCLAVIAN) (WRVU 9.19) performed by Basim Barr MD at [facility] MAIN OR ??? PRO LASER VAPORIZATION SURGERY PROSTATE, COMPLETE Midline 02/02/2021 CYSTO, LASER TURP (WRVU 12.15) performed by Cayetano Engle MD at [facility] MAIN OR ??? PRO PLACE TRANSCATHETER STENT, CCA W EMBOLIC PROECT Right 07/14/2021 @TRANSCATH INTRAVASCULAR STENT,CAROTID,PERC,W\EMBOLIC PROT. (WRVU 18) performed by Basim Barr MD at [facility] MAIN OR Social History Tobacco Use [...] used during vascular procedure at [facility] in [place]: shaking Has tolerated MRI and CT contrast. [...] AM EST Office Visit Hematology/Oncology at [address] [phone] Cl Hess MD [facility] [place] [address] [address] [place]AT[place] [address] 04/09/2024 10:00 AM EST Infusion Hematology Oncology at [address] [phone] 04/23/2024 9:30 AM EST Office Visit Hematology/Oncology at [address] [phone] Cl Hess MD [facility] [place] [address] [address] [place] [address] 04/23/2024 10:00 AM EST Infusion Hematology Oncology at [address] [phone] 05/18/2024 4:30 PM EDT TH Visit (TeleHealth) [place] [address] Malachi Rothman MD [facility] [address] 09/24/2024 9:00 AM EDT Office Visit Radiation Oncology at [address] [phone] Ping Moore PA [facility] DR [place] [address] documented as of this encounter Visit Diagnoses [...] mg documented in this encounter Care Teams Cyanide Case Hardener Relationship Specialty Start Date End Date Tristen Hunter MD [address] [place] [address] [place] [address] PCP - General Family Medicine 07/04/23 documented as of this encounter
--- OUTSIDE RECORDS SUMMARY | 2024-03-26 10:36 | XMS_ITS | Encounter Summary ---
[place] [address] Care Team Providers Care Home Economist Consumer Service Name Role Phone Tristen Hunter MD Primary Care Provider [phone] Reason for Visit * Reason Comments Medication Management Patient Education Encounter Details Date Type Department Care Team (Late st Contact Info) Description 07/18/2023 Specialty [place] [phone] Slim De La Cruz, [facility] Social History Tobacco Use Types Packs/Day [...] Appropriate Therapy: Yes Current Medication Dosing/Route/Frequency: CREON 56610 units: Take two capsules by mouth with [...] AM EST Office Visit Hematology/Oncology at [address] [phone] Cl Hess MD [facility] [place] [address] Yessi Renee [address] HEMATOLOGY [place] [address] 04/09/2024 10:00 AM EST Infusion Hematology Oncology at [address] [phone] 04/23/2024 9:30 AM EST Office Visit Hematology/Oncology at [address] [phone] Cl Hess MD [facility] [place] [address] [address] HEMATOLOGY [place] [address] 04/23/2024 10:00 AM EST Infusion Hematology Oncology at [address] [phone] 05/18/2024 4:30 PM EDT TH Visit (TeleHealth) [place] [address] Malachi Rothman MD [facility] [address] 09/24/2024 9:00 AM EDT Office Visit Radiation Oncology at [address] [phone] Ping Moore PA [facility] [place] [address] documented as of this encounter Visit Diagnoses Not on filedocumented in this encounter Care Teams Home Economist Consumer Service Relationship Specialty Start Date End Date Tristen Hunter MD [address] [place] [address] [place] [address] PCP - General Family Medicine 07/04/23 documented as of this encounter
--- OUTSIDE RECORDS SUMMARY | 2024-03-26 10:36 | XMS_ITS | Encounter Summary ---
[place] [address] Care Team Providers Care Demonstrator Sales Name Role Phone Tristen Hunter MD Primary Care Provider [phone] Encounter Details Date Type Department Care Team [...] Recorded In the past 12 months has [employer], gas, oil, or water company threatened [...] AM EST Office Visit Hematology/Oncology at [address] [phone] Cl Hess MD [facility] [place] [address] Yessi Renee APRN [address] [place] [address] DR HEMATOLOGY AND ONCOLOGY [place], [place] [address] 04/09/2024 10:00 AM EST Infusion Hematology Oncology at [address] [phone] 04/23/2024 9:30 AM EST Office Visit Hematology/Oncology at [address] [phone] Cl Hess MD [facility] [place] [address] Yessi Renee APRN [address] [place] [address] DR HEMATOLOGY AND ONCOLOGY [place], [place] [address] 04/23/2024 10:00 AM EST Infusion Hematology Oncology at [address] [phone] 05/18/2024 4:30 PM EDT TH Visit (TeleHealth) [place] [address] Malachi Rothman MD [facility] [place] [address] 09/24/2024 9:00 AM EDT Office Visit Radiation Oncology at [address] [phone] Ping Moore PA [facility] DR [place] [address] documented as of this encounter Visit Diagnoses Not on filedocumented in this encounter Care Teams Demonstrator Sales Relationship Specialty Start Date End Date Tristen Hunter MD [address] [place] [address] [place] [address] PCP - General Family Medicine 07/04/23 documented as of this encounter
--- OUTSIDE RECORDS SUMMARY | 2024-03-26 10:36 | XMS_ITS | Encounter Summary ---
[place] [address] Care Team Providers Care Master Automotive Technician Name Role Phone Tristen Hunter MD Primary Care Provider [phone] Encounter Details Date Type Department Care Team (Latest Contact Info) Description 07/24/2023 Specialty [place] [phone] Slim De La Cruz, [facility] One Time Clinical Outreach - Manual (lipase/protease/nargis [...] done on 07/23 for complete documentation of Cameron ENGLISH. documented in this encounter Plan of Treatment Upcoming Encounters Date Type Department Care Team (Late st Contact Info) Description 04/09/2024 9:30 AM EST Office Visit Hematology/Oncology at [address] [phone] Cl Hess MD [facility] [place] [address] [address] HEMATOLOGY AND ONCOLOGY [place], [place] [address] 04/09/2024 10:00 AM EST Infusion Hematology Oncology at [address] [phone] 04/23/2024 9:30 AM EST Office Visit Hematology/Oncology at [address] [phone] Cl Hess MD [facility] [place] [address] [address] HEMATOLOGY [place] [address] 04/23/2024 10:00 AM EST Infusion Hematology Oncology at [address] [phone] 05/18/2024 4:30 PM EDT TH Visit (TeleHealth) [place] [address] Malachi Rothman MD [facility] [place] [address] 09/24/2024 9:00 AM EDT Office Visit Radiation Oncology at [address] [phone] Ping Moore PA [facility] [place] [address] documented as of this encounter Visit Diagnoses Diagnosis Malignant neoplasm of head of pancreas documented in this encounter Care Teams Master Automotive Technician Relationship Specialty Start Date End Date Tristen Hunter MD [address] [place] [address] [place] [address] PCP - General Family Medicine 07/04/23 documented as of this encounter
--- OUTSIDE RECORDS SUMMARY | 2024-03-26 10:36 | XMS_ITS | Encounter Summary ---
Author Organization [facility] Address [facility] [place] [address] Care Team Providers Care Ocular Care Aide Name Role Phone YungAlo santiago Primary Care Provider [phone] Encounter Details Date Type Department Care Team (Latest Contact Info) Description 07/02/2023 12:14 PM EDT - 07/02/2023 5:13 PM EDT Hospital Encounter [place] [address] Pako Lopez MD [facility] [place] [address] Discharge Disposition: Home Social History Tobacco Use Types Packs/Day Years Used Date Smoking Tobacco: Former Cigarettes 1992 Smokeless Tobacco: Never Alcohol Use Standard Drinks/Week Comments Yes 7 (1 standard drink = 0.6 oz pur e alcohol) [facility] Utilities Answer Date Recorded In the past 12 months has [employer], gas, oil, or water company threatened to [...] mg by mouth as needed. 05/20/2023 omega 7-etp-fxe-fish oil 250-350-1,000 mg Capsule Take 1,000 mg [...] Maximum 16 mg in 24 hours 10/30/2023 mmbpbm-gkvevxyt-nhxv ase (Creon 24) 24,000-76,000 -120,000 unit capsuleIndications:M [...] uncovered metal stent placed Apr 2023 in [facility], concern for stent occlusion Patient Active [...] Operative Note Patient Name: Wero Sadler : [id number] MR#: [id number] Case Date: 07/02/2023 Surgeon: Surgeon(s) and Role: [...] AM EST Office Visit Hematology/Oncology at [address] [phone] Cl Hess MD [facility] [place] [address] Yessi Renee APRN [address] [place] [address] DR HEMATOLOGY AND ONCOLOGY [place], [place] [address] 04/09/2024 10:00 AM EST Infusion Hematology Oncology at [address] [phone] 04/23/2024 9:30 AM EST Office Visit Hematology/Oncology at [address] [phone] Cl Hess MD [facility] [place] [address] Yessi Renee APRN [address] [place] [address] DR HEMATOLOGY AND ONCOLOGY [place], [place] [phone] 04/23/2024 10:00 AM EST Infusion Hematology Oncology at [address] [phone] 05/18/2024 4:30 PM EDT TH Visit (TeleHealth) [place] [address] Malachi Rothman MD [facility] [place] [address] 09/24/2024 9:00 AM EDT Office Visit Radiation Oncology at [address] [phone] Ping Moore PA [facility] DR [place] [address] documented as of this encounter Procedures Procedure Name Priority Date/Time Associated Diagnosis Comments XR ERCP Routine 07/02/2023 3:29 PM EDT RADIOFREQUENCY ABLATION 07/02/2023 2:39 PM EDT Bets- 1-2 weeks EUS/ERCP patient with pancreatic cancer s/p ercp with stent in [facility]. Persistently elevated bilirubin. Ercp, W/Removal Stone, Lonnie/Pancr Ducts ([id number]) 07/02/2023 2:39 PM EDT Bets- 1-2 weeks EUS/ERCP patient with pancreatic cancer s/p ercp with stent in [facility]. Persistently elevated bilirubin. Ercp, Diagnostic ([id number]) 07/02/2023 2:39 PM EDT Bets- 1-2 weeks EUS/ERCP patient with pancreatic cancer s/p ercp with stent in [facility]. Persistently elevated bilirubin. Endoscopic Us Exam, Esoph ([id number]) 07/02/2023 2:39 PM EDT Bets- 1-2 weeks EUS/ERCP patient with pancreatic cancer s/p ercp with stent in [facility]. Persistently elevated bilirubin. ERCP Routine 07/02/2023 2:22 PM EDT documented in this encounter Results * XR ERCP (07/02/2023 3:29 PM EDT) Narrative [facility] - 07/02/2023 3:31 PM EDT See PACS for result report. Pako Lopez MD IMG FILM LIBRARY ORD ERABLES [place], [place] * ERCP (07/02/2023 2:22 PM EDT) ERCP [facility] Endoscopy Procedure Date: 07/02/2023 2:22 PM ? Patient Name: Wero Sadler ? Date of : 1950 ? Age: 73 ? Order #: [id number] ? Instrument Name: [id number] ? Procedure: ? ERCP Indications: ? Elevated [...] A biliary stent was visible on the aluminum siding installer film. The ? esophagus was successfully intubated [...] Procedure Code(s): ? --- Professional --- ? 42626, Esophagogastroduod enoscopy, ? flexible, transoral; diagnostic, ? [...] ? prosthesis, initial encounter CPT copyright 2021 [employer]. All rights reserved. The codes documented in this report are preliminary and upon molder automobile carpets review may be revised to meet current [...] CRNA) documented in this encounter Care Teams Ocular Care Aide Relationship Specialty Start Date End Date Alo Carey DO [address] [place] [address] [place] [phone] PCP - General Internal Medicine 08/31/20 07/03/23 documented as of this encounter
--- OUTSIDE RECORDS SUMMARY | 2024-03-26 10:36 | XMS_ITS | Encounter Summary ---
Author Organization [facility] Address [facility] [place] [address] Care Team Providers Care Conduit Bender Name Role Phone Tristen Hunter MD Primary Care Provider [phone] Reason for Visit * Reason Comments Chemotherapy Cycle 3, Day 1 - Fol firinox * Treatment/Therapy Plan Authorization (Routine) - Authorized Specialty Diagnoses / Procedures Referred By Marques livingston Referred To Contact Diagnoses Malignant neoplasm of prostate Cl Hess MD [facility] [place] [address] Stj Hem Onc Infusion [address] [place] [phone] Referral ID Status Reason Start Date Expiration Date V isits Requested Visits Authorized [id number] Authorized 07/11/2023 07/10/2024 99 107 Encounter Details Date Type Department Care Team (Late st Contact Info) Description 08/09/2023 9:00 AM EDT Infusion Hematology Oncology at [address] [phone] Malignant neoplasm of prostate; Malignant neoplasm of head of pancreas Social History Tobacco Use Types Packs/Day Years Used Date Smoking Tobacco: Former Cigarettes 1992 Smokeless Tobacco: Never Alcohol Use Standard Drinks/Week Comments Yes 7 (1 standard drink = 0.6 oz pur e alcohol) [facility] Utilities Answer Date Recorded In [...] EFFECTIVENESS) none ASSESSMENT: CADD pump provided by [employer], pump was double checked by Michela Enciso RN RN and Koko Funk RN prior to connection. Pump was checked 15min after connection and 0.9 cc was infused. Patient was awake, alert and tolerated treatment well. Disconnect at [facility] at 1200 on Saturday08/11/23. Called and spoke [...] AM EST Office Visit Hematology/Oncology at [address] [phone] Cl Hess MD [facility] [place] [address] HEMATOLOGY AND ONCOLOGY [place], [place] [address] 04/09/2024 10:00 AM EST Infusion Hematology Oncology at [address] [phone] 04/23/2024 9:30 AM EST Office Visit Hematology/Oncology at [address] [phone] Cl Hess MD [facility] [place] [address] [address] HEMATOLOGY AND ONCOLOGY [place], [place] [address] 04/23/2024 10:00 AM EST Infusion Hematology Oncology at [address] [phone] 05/18/2024 4:30 PM EDT TH Visit (TeleHealth) [place] [address] Malachi Rothman MD [facility] [place] [address] 09/24/2024 9:00 AM EDT Office Visit Radiation Oncology at [address] [phone] Ping Moore PA [facility] [place] [address] documented as of this encounter Visit Diagnoses [...] 2 minutes is a recommendation from the kaiawhina kohanga reo. Administer prior to chemotherapy., Routine Given 08/09/2023 [...] mg documented in this encounter Care Teams Conduit Bender Relationship Specialty Start Date End Date Tristen Hunter MD [address] [place] [address] [place] [address] PCP - General Family Medicine 07/04/23 documented as of this encounter
--- OUTSIDE RECORDS SUMMARY | 2024-03-26 10:36 | XMS_ITS | Encounter Summary ---
Author Organization [facility] [place] [address] Care Team Providers Care Guidance Secretary Name Role Phone Tristen Hunter MD Primary Care Provider [phone] Encounter Details Date Type Department Care Team (Late st Contact Info) Description 07/11/2023 Orders Only Hematology [place] [address] Cl Hess MD [facility] DR ONCOLOGY [place] [phone] Social History Tobacco Use Types Packs/Day Years [...] AM EST Office Visit Hematology/Oncology at [address] [phone] Cl Hess MD [facility] [place] [address] Yessi Renee APRN [address] [place] [address] DR [place] [address] 04/09/2024 10:00 AM EST Infusion Hematology Oncology at [address] [phone] 04/23/2024 9:30 AM EST Office Visit Hematology/Oncology at [address] [phone] Cl Hess MD [facility] [place] [address] [address] HEMATOLOGY AND ONCOLOGY [place], [place] [address] 04/23/2024 10:00 AM EST Infusion Hematology Oncology at [address] [phone] 05/18/2024 4:30 PM EDT TH Visit (TeleHealth) [place] [address] Malachi Rothman MD [facility] [place] [address] 09/24/2024 9:00 AM EDT Office Visit Radiation Oncology at [address] [phone] Ping Moore PA [facility] DR [place]AT[place] [address] documented as of this encounter Visit Diagnoses Not on filedocumented in this encounter Care Teams Guidance Secretary Relationship Specialty Start Date End Date Tristen Hunter MD [address] [place] [address] [place] [address] PCP - General Family Medicine 07/04/23 documented as of this encounter
--- OUTSIDE RECORDS SUMMARY | 2024-03-26 10:36 | XMS_ITS | Encounter Summary ---
Author Organization [facility] [place] [address] Care Team Providers Care Wig Dresser Name Role Phone Trsiten Hunter MD Primary Care Provider [phone] Reason for Visit * Reason Onset Date Comments Results 07/26/2023 Encounter Details Date Type Department Care Team (Late st Contact Info) Description 07/26/2023 Telephone Hematology and Oncology at [address] [phone] [facility] [place] [address] Results Social History Tobacco Use Types Packs/Day Years Used Date Smoking Tobacco: Former Cigarettes 4 30 1 1992 Smokeless Tobacco: Never Alcohol Use Standard Drinks/Week Comments Yes 7 (1 standard drink = 0.6 oz pur e alcohol) [facility] Utilities Answer Date Recorded In the past 12 months has [employer], gas, oil, or water company threatened to [...] encounter Miscellaneous Notes * Telephone Encounter - Queeine Meneses [facility] - 07/26/2023 11:20 AM EDT This test result was discussed with the patient by phone. A copy of the test results have been scanned in the medical record and sent to Wero. A summary of the results is provided below. Please be advised that [place] law requires that all health care workers respect the confidentiality of this information and not pass it along to other health care providers, insurance companies, or indivi duals without the written permission of the patient. The Familial Cancer Program welcomes any questions about these matters. Our phone number is: [phone]. On 06/13/2023 Wero was seen by Real Cardenas [facility], for genetic counseling and subsequently underwent genetic testing for a hereditary predisposition to cancers in eight major organ systems including breast, gynecologic, gastrointestinal, endocrine, genitourinary, skin, brain/nervous system, sarcoma and hematologic. Following are the results of this test. Result: Abigail's CancerNext-Expanded +Yattos Panel showed no mutation was detected. This means that Wero does not carry a mutation in the genes detectable by this test. The following 71 genes were analyzed: AIP, ALK, APC, MICHELINE, BAP1, BARD1, BMPR1A, BRCA1, BRCA2, BRIP1, CDC73, CDH1, CDK4, CDKN1B, CDKN2A, CHEK2, DICER1, FH, FLCN, KIF1B, LZTR1, MAX, MEN1, MET, MLH1, MSH2, MSH6, MUTYH, NF1, NF2, NTHL1, PALB2, PHOX2B, PMS2, POT1, UJAYG6K, PTCH1, PTEN, RAD51C, RAD51D, RB1, RET, SDHA, SDHAF2, SDHB, SDHC, SDHD, SMAD4, SMARCA4, SMARCB1, SMARCE1, STK11, SUFU, HCVO119, TP53, TSC1, TSC2 and VHL (sequencing and [...] screening Periodic colonoscopy screening as recommended by Sophia's aoc director combat operations officer and oncology care team. Skin cancer screening Skin cancer screening and sun protection are important for everyone, regardless of genetic predisposition. Consideration of routine dermatologic/skin exams, as recommended by Wero's primary care provider or training and development project leader. Pancreatic cancer management Pancreatic cancer management as recommended by Wero's oncology care team. documented in this encounter Plan of Treatment Upcoming Encounters Date Type Department Care Team (Late st Contact Info) Description 04/09/2024 9:30 AM EST Office Visit Hematology/Oncology at [address] [phone] Cl Hess MD [facility] [place] [address] Yessi Renee APRN [address] [place] [address] DR [place] [address] 04/09/2024 10:00 AM EST Infusion Hematology Oncology at [address] [phone] 04/23/2024 9:30 AM EST Office Visit Hematology/Oncology at [address] [place] [address] [phone] Cl Hess MD [facility] [place] [address] Yessi Renee APRN [address] [place] [address] DR HEMATOLOGY AND ONCOLOGY [place], [place] [address] 04/23/2024 10:00 AM EST Infusion Hematology Oncology at [address] [phone] 05/18/2024 4:30 PM EDT TH Visit (TeleHealth) [place] [address] Malachi Rothman MD [facility] [place] [address] 09/24/2024 9:00 AM EDT Office Visit Radiation Oncology at [address] [phone] Ping Moore PA [facility] DR HEMATOLOGY [place] [address] documented as of this encounter Visit Diagnoses Not on filedocumented in this encounter Care Teams Wig Dresser Relationship Specialty Start Date End Date Tristen Hunter MD [address] [place] [address] [place] [address] PCP - General Family Medicine 07/04/23 documented as of this encounter
--- OUTSIDE RECORDS SUMMARY | 2024-03-26 10:36 | XMS_ITS | Encounter Summary ---
[place] [address] Care Team Providers Care Orchard Manager Name Role Phone Tristen Hunter MD Primary Care Provider [phone] Encounter Details Date Type Department Care Team [...] Recorded In the past 12 months has [employer], gas, oil, or water company threatened [...] AM EST Office Visit Hematology/Oncology at [address] [phone] Cl Hess MD [facility] [place] [address] Yessi Renee APRN [address] [place] [address] DR HEMATOLOGY AND ONCOLOGY [place], [place] [address] 04/09/2024 10:00 AM EST Infusion Hematology Oncology at [address] [phone] 04/23/2024 9:30 AM EST Office Visit Hematology/Oncology at [address] [phone] Cl Hess MD [facility] [place] [address] Yessi Renee APRN [address] [place] [address] DR HEMATOLOGY AND ONCOLOGY [place], [place] [address] 04/23/2024 10:00 AM EST Infusion Hematology Oncology at [address] [phone] 05/18/2024 4:30 PM EDT TH Visit (TeleHealth) [place] [address] Malachi Rothman MD [facility] [place] [address] 09/24/2024 9:00 AM EDT Office Visit Radiation Oncology at [address] [phone] Ping Moore PA [facility] DR [place] [address] documented as of this encounter Visit Diagnoses Not on filedocumented in this encounter Care Teams Orchard Manager Relationship Specialty Start Date End Date Tristen Hunter MD [address] [place] [address] [place] [address] PCP - General Family Medicine 07/04/23 documented as of this encounter
--- OUTSIDE RECORDS SUMMARY | 2024-03-26 10:36 | XMS_ITS | Encounter Summary ---
Author Organization [facility] Address [facility] [place] [address] Care Team Providers Care Living Nurse Name Role Phone Tristen Hunter MD Primary Care Provider [phone] Encounter Details Date Type Department Care Team (Late st Contact Info) Description 08/09/2023 8:30 AM EDT Office Visit Hematology/Oncology at [address] [phone] Cl Hess MD [facility] [place] [address] Yessi Renee, ARNOLD [address] [place] [address] [place] [address] Malignant neoplasm of head of pancreas Social History Tobacco Use Types Packs/Day Years Used Date Smoking Tobacco: Former Cigarettes 4 30 1 963 - 1992 Smokeless Tobacco: Never Alcohol Use Standard Drinks/Week Comments Yes 7 (1 standard drink = 0.6 oz pur e alcohol) [facility] Utilities Answer Date Recorded In the [...] periduodenal or perilesional adenopathy was appreciated Impression: [id number] pancreas head mass lesion with biliary and [...] metastatic disease/disease progression on interim staging evaluation. [facility] second read of CT c/a/p from 05/22/23 [...] due to CVA 14. Genetic testing: Result: [place] [facility] CancerNext-Expanded +RNAinsight Panel showed no mutation was [...] chest pain or swelling. 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 While in [facility], he presented with chest pain and SOB [...] discussed. Pathology was requested for review at [facility] and we also requested that images be sent. His case was reviewed at [facility] on 06/18/23. The Ct from 05/22/23 [...] will be followed also by our clinical cartography professor, Lupe Velasquez. On 07/12/23 he began neoadjuvant [...] AM EST Office Visit Hematology/Oncology at [address] [phone] Cl Hess MD [facility] [place] [address] Yessi Renee APRN [address] [place] [address] [place] [address] 04/09/2024 10:00 AM EST Infusion Hematology Oncology at [address] [phone] 04/23/2024 9:30 AM EST Office Visit Hematology/Oncology at [address] [phone] Cl Hess MD [facility] [place] [address] Yessi Renee MANUFACTURE SPECIALIST [address] [place] [address] [place] [address] 04/23/2024 10:00 AM EST Infusion Hematology Oncology at [address] [phone] 05/18/2024 4:30 PM EDT TH Visit (TeleHealth) [place] [address] Malachi Rothman MD [facility] [place] [address] 09/24/2024 9:00 AM EDT Office Visit Radiation Oncology at [address] [phone] Ping Moore PA [facility] [place] [address] documented as of this encounter Visit Diagnoses Diagnosis Malignant neoplasm of head of pancreas documented in this encounter Care Teams Living Nurse Relationship Specialty Start Date End Date Tristen Hunter MD [address] [place] [address] [place] [address] PCP - General Family Medicine 07/04/23 documented as of this encounter
--- OUTSIDE RECORDS SUMMARY | 2024-03-26 10:36 | XMS_ITS | Encounter Summary ---
Author Organization [facility] [place] [address] Care Team Providers Care Boat Laborer Name Role Phone Tristen Hunter MD Primary Care Provider [phone] Encounter Details Date Type Department Care Team (Late st Contact Info) Description 07/18/2023 Orders Only Hematology [place] [address] Cl Hess MD [facility] DR ONCOLOGY [place] [phone] Malignant neoplasm of head of pancreas; Pancreatic insufficiency Social History Tobacco Use Types Packs/Day Years Used Date Smoking Tobacco: Former Cigarettes 4 30 1 3 - 1992 Smokeless Tobacco: Never Alcohol Use Standard Drinks/Week Comments Yes 7 (1 standard drink = 0.6 oz pur e alcohol) [facility] Utilities Answer Date Recorded In the past 12 months has [employer] electric, gas, oil, or water company threatened [...] AM EST Office Visit Hematology/Oncology at [address] [phone] Cl Hess MD [facility] [place] [address] HEMATOLOGY AND ONCOLOGY [place], [place] [address] 04/09/2024 10:00 AM EST Infusion Hematology Oncology at [address] [phone] 04/23/2024 9:30 AM EST Office Visit Hematology/Oncology at [address] [phone] Cl Hess MD [facility] [place] [place] [address] HEMATOLOGY AND ONCOLOGY [place], [place] [phone] 04/23/2024 10:00 AM EST Infusion Hematology Oncology at [address] [phone] 05/18/2024 4:30 PM EDT TH Visit (TeleHealth) [place] [address] Malachi Rothman MD [facility] DR [place] [address] 09/24/2024 9:00 AM EDT Office Visit Radiation Oncology at [address] [phone] Ping Moore PA [facility] DR HEMATOLOGY [place] [address] documented as of this encounter Visit Diagnoses Diagnosis Malignant neoplasm of head of pancreas Pancreatic insufficiency Other specified disease of pancreas documented in this encounter Care Teams Boat Laborer Relationship Specialty Start Date End Date Tristen Hunter MD [address] [place] [address] [place] [address] PCP - General Family Medicine 07/04/23 documented as of this encounter
--- OUTSIDE RECORDS SUMMARY | 2024-03-26 10:36 | XMS_ITS | Encounter Summary ---
[place] [address] Care Team Providers Care Waiter/Waitress Dining Car Name Role Phone CherryAlo Lon RUTHERFORD Primary Care Provider [phone] Encounter Details Date Type Department Care Team (Late st Contact Info) Description 07/02/2023 2:25 PM EDT Ancillary [place] [phone] Social History Tobacco Use Types Packs/Day Years [...] AM EST Office Visit Hematology/Oncology at [address] [phone] Cl Hess MD [facility] [place] [address] Yessi Renee APRN [address] [place] [address] [place] [address] 04/09/2024 10:00 AM EST Infusion Hematology Oncology at [address] [phone] 04/23/2024 9:30 AM EST Office Visit Hematology/Oncology at [address] [phone] Cl Hess MD [facility] [place] [address] Yessi Renee APRN [address] [place] [address] DR HEMATOLOGY AND ONCOLOGY [place], [place] [address] 04/23/2024 10:00 AM EST Infusion Hematology Oncology at [address] [phone] 05/18/2024 4:30 PM EDT TH Visit (TeleHealth) [place] [address] Malachi Rothman MD [facility] [place] [address] 09/24/2024 9:00 AM EDT Office Visit Radiation Oncology at [address] [phone] Ping Moore PA [facility] [place] [address] documented as of this encounter Procedures Procedure Name Priority Date/Time Associated Diagnosis Comments XR ERCP Routine 07/02/2023 3:29 PM EDT documented in this encounter Results * XR ERCP (07/02/2023 3:29 PM EDT) Narrative [facility] - 07/02/2023 3:31 PM EDT See PACS for result report. Pako Lopez MD IM FILM LIBRARY ORD ERABLES [place], [place] documented in this encounter Visit Diagnoses Not on filedocumented in this encounter Care Teams Waiter/Waitress Dining Car Relationship Specialty Start Date End Date Alo Carey DO [address] [place] [address] [place] [phone] PCP - General Internal Medicine 08/31/20 07/03/23 documented as of this encounter
[2024-03-26 10:37] LABS: HCT 28.7 % (40.0-50.0); HGB 9.3 g/dL (13.5-17.5); MCH 29.6 pg (27.0-33.0); MCHC 32.4 % (32.0-36.0); MCV 91 fL (80-95); MPV 9.3 fL (8.0-11.0); Platelet Count 146 10^3/uL (130-400); RBC 3.14 10^6/uL (4.36-5.78); RDW-SD 46.1 fL
--- OUTSIDE RECORDS SUMMARY | 2024-03-26 10:37 | XMS_ITS | Encounter Summary ---
Author Organization [facility] Address [facility] [place] [address] Care Team Providers Care Escort Patients Name Role Phone Alo Carey DO Primary Care Provider [phone] Reason for Visit * Consultation (Routine) - Closed Specialty Diagnoses / Procedures Referred By Marques livingston Referred To Contact General Surgery Diagnoses Malignant neoplasm of head of pancreas Cl Hess MD [facility] [place] [address] Charu Balbuena MD [facility] [place] [address] Referral ID Status Reason Start Date Expiration Date V isits Requested Visits Authorized [id number] Closed Consult, Test & Treat 06/06/2023 06/05/2024 1 1 Encounter Details Date Type Department Care Team (Late st Contact Info) Description 06/25/2023 1:00 PM EDT Office [place] [phone] Charu Balbuena MD [facility] [place] [address] Malignant neoplasm of head of pancreas Social [...] Sadler is a 73 year old from [place], [place]. Dr. Hess recently presented his case to the GI tumor board on 06/18/2023 as his workup was completed at [facility] [place]. His history is summarized below: 73 yo, h/o multiple medical problems as above, including colon cancer (resected in 2008), prostate cancer (s/p androgen deprivation and RT), ASCVD (sp 3v CABG), PVDz s/p carotid endarterectomy, priorCVA, DM and others. 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 While in [facility], he presented with chest pain [...] at the GI tumor board. Down to [place] of the group down there felt that [...] Claudication Colon adenocarcinoma 2008 recieved chemo in [place] Coronary artery disease Coronary artery dissection CPAP [...] 20.72) performed by Ismael Wu MD at [facility] MAIN OR PRO ARTHROPLASTY ACETABULAR/PROX FEM PROSTC AGRFT/ALGRFT Right 11/17/2021 TOTAL HIP ARTHROPLASTY - POSTERIOR (WRVU 20.72) performed by Ismael Wu MD at [facility] MAIN OR PRO EXPLORATION NOT FOLLOWED BY SURG NECK ARTERY Right 07/14/2021 @EXPLORATION NOT FOLLOWED BY SURGICAL REPAIR, ARTERY; NECK (CAROTID OR SUBCLAVIAN) (WRVU 9.19) performed by Basim Barr MD at [facility] MAIN OR PRO LASER VAPORIZATION SURGERY PROSTATE, COMPLETE Midline 02/02/2021 CYSTO, LASER TURP (WRVU 12.15) performed by Cayetano Engle MD at [facility] MAIN OR PRO PLACE TRANSCATHETER STENT, CCA W EMBOLIC PROECT Right 07/14/2021 @TRANSCATH INTRAVASCULAR STENT,CAROTID,PERC,W\EMBOLIC PROT. (WRVU 18) performed by Basim Barr MD at [facility] MAIN OR Medications: tssuly-ksylhfcn-xspzzum DR (Creon 24) 24,000-76,000 -120,[address] capsule Farxiga 10 mg tablet omeprazole (PriLOSEC) [address] capsule Lantus Solostar U-100 Insulin 100 unit/mL (3 mL) pen tamsulosin (Flomax) 0.4 mg capsule omega 5-wey-cwn-fish oil 250-350-1,000 mg Capsule amLODIPine (Norvasc) 10 [...] at [facility] in [place]: shaking Has tolerated [...] modified FOLFIRINOX per Dr. Hess up in [place]. He may then not require radiation therapy [...] Dr. Hess on July 11 up in [place] to get started with chemotherapy. Hopefully the Mediport will be in place by then and he can get started without any further delays. We will asked that he hold the Farxiga 3 days prior to the surgery date. Roberto Balbuena MD 06/25/2023 1:57 PM Time Spent With Patient: 60 minutes of this 80 minute visit were spent in waka-ls-kyck discussion and counseling the patient as detailed above. documented in this encounter Plan of Treatment Upcoming Encounters Date Type Department Care Team (Late st Contact Info) Description 04/09/2024 9:30 AM EST Office Visit Hematology/Oncology at [address] [phone] Cl Hess MD [facility] [place] [place] [address] [address] HEMATOLOGY AND ONCOLOGY [place], [place] [address] 04/09/2024 10:00 AM EST Infusion Hematology Oncology at [address] [phone] 04/23/2024 9:30 AM EST Office Visit Hematology/Oncology at [address] [phone] Cl Hess MD [facility] [place] [address] [address] HEMATOLOGY AND ONCOLOGY [place], [place] [phone] 04/23/2024 10:00 AM EST Infusion Hematology Oncology at [address] [phone] 05/18/2024 4:30 PM EDT TH Visit (TeleHealth) [place] [address] Malachi Rothman MD [facility] [place] [address] 09/24/2024 9:00 AM EDT Office Visit Radiation Oncology at [address] [phone] Ping Moore PA [facility] DR HEMATOLOGY [place] [address] documented as of this encounter Visit Diagnoses Diagnosis Malignant neoplasm of head of pancreas documented in this encounter Care Teams Escort Patients Relationship Specialty Start Date End Date Alo Carey DO [address] [place] [address] [place] [phone] PCP - General Internal Medicine 08/31/20 07/03/23 documented as of this encounter
--- OUTSIDE RECORDS SUMMARY | 2024-03-26 10:37 | XMS_ITS | Encounter Summary ---
[place] [address] Care Team Providers Care Fork Operator Name Role Phone Alo Carey Primary Care Provider [phone] Encounter Details Date Type Department Care Team (Late st Contact Info) Description 06/12/2023 Orders Only Hematology/Oncology at [address] [phone] Yessi Renee [address] [place] [address] Malignant neoplasm of head of pancreas; Pancreatic insufficiency Social History Tobacco Use Types Packs/Day Years Used Date Smoking Tobacco: Former Cigarettes 4 1 3 - 1992 Smokeless Tobacco: Never Alcohol Use Standard Drinks/Week Comments Yes 7 (1 standard drink = 0.6 oz pur e alcohol) [facility] Utilities Answer Date Recorded In the past 12 months has [employer] electric, gas, oil, or water company threatened [...] AM EST Office Visit Hematology/Oncology at [address] [phone] Cl Hess MD [facility] [place] [address] Yessi Renee APRN [address] [place] [address] DR HEMATOLOGY AND ONCOLOGY [place], [place] [phone] 04/09/2024 10:00 AM EST Infusion Hematology Oncology at [address] [phone] 04/23/2024 9:30 AM EST Office Visit Hematology/Oncology at [address] [phone] Cl Hess MD [facility] [place] [address] Yessi Renee APRN [address] [place] [address] DR [place] [address] 04/23/2024 10:00 AM EST Infusion Hematology Oncology at [address] [phone] 05/18/2024 4:30 PM EDT TH Visit (TeleHealth) [place] [address] Malachi Rothman MD [facility] [place] [address] 09/24/2024 9:00 AM EDT Office Visit Radiation Oncology at [address] [phone] Ping Moore PA [facility] DR [place] [address] documented as of this encounter Visit Diagnoses Diagnosis Malignant neoplasm of head of pancreas Pancreatic insufficiency Other specified disease of pancreas documented in this encounter Care Teams Fork Operator Relationship Specialty Start Date End Date Alo Carey DO [address] [place] [address] [place] [phone] PCP - General Internal Medicine 08/31/20 07/03/23 documented as of this encounter
--- OUTSIDE RECORDS SUMMARY | 2024-03-26 10:37 | XMS_ITS | Encounter Summary ---
[place] [address] Care Team Providers Care Forming Press Operator Name Role Phone YungAlo santiago Primary Care Provider [phone] Encounter Details Date Type Department Care Team (Latest Contact Info) Description 06/25/2023 2:45 PM EDT Laboratory Appointment Lab [address] [place] [address] Malignant neoplasm of prostate; Malignant [...] AM EST Office Visit Hematology/Oncology at [address] [phone] Cl Hess MD [facility] [place] [address] Yessi Renee APRN [address] [place] [address] [place] [address] 04/09/2024 10:00 AM EST Infusion Hematology Oncology at [address] [phone] 04/23/2024 9:30 AM EST Office Visit Hematology/Oncology at [address] [phone] Cl Hess MD [facility] [place] [address] Yessi Renee APRN [address] [place] [address] DR HEMATOLOGY AND ONCOLOGY [place], [place] [address] 04/23/2024 10:00 AM EST Infusion Hematology Oncology at [address] [phone] 05/18/2024 4:30 PM EDT TH Visit (TeleHealth) [place] [address] Malachi Rothman MD [facility] [place] [address] 09/24/2024 9:00 AM EDT Office Visit Radiation Oncology at [address] [phone] Ping Moore PA [facility] [place] [address] documented as of this encounter Procedures Procedure [...] 2:37 PM EDT) Neutrophil % 80.7 % [facility] Neutrophil Absolute 6.46(H) 1.70 - 6.10 x10(3)/ L [facility] Lymph % 10.8 % [facility] Lymphocytes Abs 0.9 0.9 - 3.2 x10(3)/ L [facility] Monocyte % 8.0 % [facility] Monocyte Abs 0.6 0.3 - 0.9 x10(3)/ L [facility] Eos % 0.1 % [facility] Eosinophils Abs 0.0 0.0 - 0.4 x10(3)/[facility] Basophil % 0.2 % [facility] Baso Absolute 0.0 0.0 - 0.1 x10(3)/mc L [facility] Immature Gran % 0.20 % [facility] Comment: Immature granulocytes(IG's)percentage and absolute count will include metamyelocytes, myelocytes, and promyelocytes. Blood smears from CBCs yielding IG's will be scanned manually for concordance. If this scan disagrees with the automated IG or if promyelocytes are noted, a manual differential will be performed. Immature Gran Absolute 0.02 0.00 - 0.04 x10(3)/ L [facility] Blood 06/25/2023 2:37 PM EDT 06/25/2023 2:43 PM EDT Narrative Resulting Agency Comment Spec In Lab Cl Hess MD HEMATOLOGY ORDERABLE S Performing Organization Address City/[facility]/ZIP Co de Phone Number [facility] [place] [address] * (ABNORMAL) Hemogram (06/25/2023 2:37 PM EDT) White Blood Cell 8.0 4.0 - 9.5 x10(3)/mc L [facility] Red Blood Cell 3.77(L) 4.58 - 5.54 x10(6)/mc L [facility] Hemoglobin 12.3(L) 13.7 - 16.5 g/dL [facility] Hematocrit 37.4(L) 40.5 - 48.5 % [facility] Mean Cell Volume 99.2(H) 82.9 - 93.1 fL [facility] Mean Cell Hemoglobin 32.6(H) 27.5 - 32.1 pg [facility] Mean Cell Hemoglobin Concentration 32.9 32.0 - 35.7 g/dL [facility] Platelet 188 145 - 357 x10(3)/mc L [facility] RDW Standard Deviation 53.6(H) 36.0 - 45.0 fL [facility] RDW coefficient of variation 14.6(H) 11.4 - 13.8 % [facility] Mean Platelet Volume 10.3 7.6 - 12.9 fL [facility] NRBC% auto 0.0 % [facility] NRBC Absolute 0.000 0.000 - 0.000 x10(3)/mc L [facility] Blood 06/25/2023 2:37 PM EDT 06/25/2023 2:43 PM EDT Narrative Resulting Agency Comment Spec In Lab Cl Hess MD HEMATOLOGY ORDERABLE S [facility] [place] [address] * PGx Oncology (06/25/2023 2:37 PM EDT) Blood VENOUS BLOOD SPECIMEN / Unknown 06/25/2023 2:37 PM EDT 06/26/2023 8:27 AM EDT Narrative Resulting Agency Comment Spec In Lab Cl Hess MD MOLECULAR ORDERABLES [facility] [place] [address] * (ABNORMAL) Comprehensive metabolic panel (non-fasting) (06/25/2023 2:37 PM EDT) Glucose 410(H) 65 - 199 mg/dL [facility] Comment:Diabetes: >=200 mg/d L plus symptoms Blood Urea Nitrogen 19 10 - 20 mg/dL [facility] Creatinine 0.66(L) 0.80 - 1.50 mg/dL [facility] Sodium 135 135 - 145 mmol/L [facility] Potassium 4.0 3.5 - 5.0 mmol/L [facility] Comment: Please note: ??Patients with WBC >100,000 may have falsely elevated Potassium levels. ??For accurate Potassium quantification in these patients send serum separator tube (gold top) for subsequent determinations. ??Contact the Clinical Chemistry Laboratory if there are any questions. Chloride 96(L) 98 - 107 mmol/L [facility] Carbon Dioxide 25 22 - 31 mmol/L [facility] Anion Gap 14 5 - 15 mmol/L [facility] Calcium 9.3 8.5 - 10.5 mg/dL [facility] Protein, Total 6.4 6.1 - 8.0 g/dL [facility] Albumin 4.0 3.2 - 5.2 g/dL [facility] Aspartate Aminotransferase 122(H) 0 - 39 unit/L [facility] Alanine Aminotransferase 200(H) 0 - 55 unit/L [facility] Alkaline Phosphatase 303(H) 40 - 130 unit/L [facility] Bilirubin, Total 2.0(H) 0.2 - 1.3 mg/dL [facility] Est Glomerular Filtration Rate 98 >=60 mL/min/1. 73 m?? [facility] Comment: This patient's estimated [...] Hess MD CHEMISTRY ORDERABLES Performing Organization Address [facility] Co de Phone Number [facility] [place] [address] * (ABNORMAL) Carbohydrate Antigen 19-9 (06/25/2023 2:37 PM EDT) CA 19-9 390.0(H) <=35.0 u/ml [facility] Comment: This result was generated using a Danni Lita immunoassay. ??Results obtained from other methods or manufacturers cannot be used interchangeably with this method. Blood 06/25/2023 2:37 PM EDT 06/25/2023 2:43 PM EDT Narrative Resulting Agency Comment Spec In Lab Cl Hess MD CHEMISTRY ORDERABLES Performing Organization Address [facility] Co de Phone Number [facility] [place] [address] * PSA (Ultrasensitive) (06/25/2023 2:37 PM EDT) Prostate Specific Antigen (Ultrasensitive) 0.09 0.00 - 4.00 ng/mL [facility] Comment: PLEASE NOTE: The [...] Agency Comment Spec In Lab Bela Charles TELEMARKETER CHEMISTRY ORDERABLES [facility] [place] [address] * Testosterone, total (06/25/2023 2:37 PM EDT) Testosterone 2.12 1.93 - 7.40 ng/mL [facility] Comment: Pediatric Reference Ranges: [...] Agency Comment Spec In Lab Bela Charles TELEMARKETER CHEMISTRY ORDERABLES Performing Organization Address City/State/[facility] Co de Phone Number [facility] [place] [address] documented in this encounter Visit Diagnoses Diagnosis Malignant neoplasm of prostate Malignant neoplasm of head of pancreas documented in this encounter Care Teams Forming Press Operator Relationship Specialty Start Date End Date Alo Carey DO [address] [place] [address] [place] [address] PCP - General Internal Medicine 08/31/20 07/03/23 documented as of this encounter
--- OUTSIDE RECORDS SUMMARY | 2024-03-26 10:37 | XMS_ITS | Encounter Summary ---
Author Organization [facility] [place] [address] Care Team Providers Care Steersman Name Role Phone Alo Carey DO Primary Care Provider [phone] Encounter Details Date Type Department Care Team [...] AM EST Office Visit Hematology/Oncology at [address] [phone] Cl Hess MD [facility] [place] [place] [address] Yessi Renee, [address] HEMATOLOGY AND ONCOLOGY [place], [place] [phone] 04/09/2024 10:00 AM EST Infusion Hematology Oncology at [address] [phone] 04/23/2024 9:30 AM EST Office Visit Hematology/Oncology at [address] [phone] Cl Hess MD [facility] [place] [address] [address] HEMATOLOGY AND ONCOLOGY [place], [place] [phone] 04/23/2024 10:00 AM EST Infusion Hematology Oncology at [address] [phone] 05/18/2024 4:30 PM EDT TH Visit (TeleHealth) [place] [address] Malachi Rothman MD [facility] [place] [address] 09/24/2024 9:00 AM EDT Office Visit Radiation Oncology at [address] [phone] Ping Moore PA [facility] DR HEMATOLOGY [place] [address] documented as of this encounter Visit Diagnoses Not on filedocumented in this encounter Care Teams Steersman Relationship Specialty Start Date End Date Alo Carey DO [address] [place] [address] [place] [phone] PCP - General Internal Medicine 6/30/21 5/1/24 documented as of this encounter
--- OUTSIDE RECORDS SUMMARY | 2024-03-26 10:37 | XMS_ITS | Encounter Summary ---
[place] [address] Care Team Providers Care Sound Recording Technician Name Role Phone Alo Carey Primary [...] Recorded In the past 12 months has [employer] electric, gas, oil, or water company [...] AM EST Office Visit Hematology/Oncology at [address] [phone] Cl Hess MD [facility] [place] [address] Yessi Renee APRN [address] [place] [address] DR HEMATOLOGY [place] [address] 04/09/2024 10:00 AM EST Infusion Hematology Oncology at [address] [phone] 04/23/2024 9:30 AM EST Office Visit Hematology/Oncology at [address] [phone] Cl Hess MD [facility] [place] [address] Yessi Renee APRN [address] [place] [address] DR HEMATOLOGY AND ONCOLOGY [place], [place] [address] 04/23/2024 10:00 AM EST Infusion Hematology Oncology at [address] [phone] 05/18/2024 4:30 PM EDT TH Visit (TeleHealth) [place] [address] Malachi Rothman MD [facility] [place] [address] 09/24/2024 9:00 AM EDT Office Visit Radiation Oncology at [address] [phone] Ping Moore PA [facility] DR [place] [address] documented as of this encounter Visit Diagnoses Not on filedocumented in this encounter Care Teams Sound Recording Technician Relationship Specialty Start Date End Date Alo Carey DO [address] [place] [address] [place] [address] PCP - General Internal Medicine 08/31/20 07/03/23 documented as of this encounter
--- OUTSIDE RECORDS SUMMARY | 2024-03-26 10:37 | XMS_ITS | Encounter Summary ---
Author Organization [facility] [place] [address] Care Team Providers Care Kick Plate Installer Name Role Phone YungAlo santiago Primary Care Provider [phone] Encounter Details Date Type Department Care Team (Latest Contact Info) Description 06/19/2023 8:45 AM EDT TH Visit (TeleHealth) [place] [address] Cl Hess MD [facility] [place] [address] Malignant neoplasm of head of pancreas Social History Tobacco Use Types Packs/Day Years Used Date Smoking Tobacco: Former Cigarettes 4 30 1 - 1992 Smokeless Tobacco: Never Alcohol Use Standard Drinks/Week Comments Yes 7 (1 standard drink = 0.6 oz pur e alcohol) [facility] Utilities Answer Date Recorded In the [...] periduodenal or perilesional adenopathy was appreciated Impression: [id number] pancreas head mass lesion with biliary and [...] unsteadiness in the morning. 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 Pathology was requested for review at [facility] and we also requested [...] regarding mFolfirinox. We reviewed his case at [facility] on 06/18/23. The Ct from [...] was for a blood draw in [facility] once he starts his infusions. If genetic testing showed a BRCA or PALB2 mutation, he may be eligible for a clinical trial looking at theuse olaparib following completion of chemotherapy and surgery to see if this improves RFS. He will be followed also by our clinical mainstreaming facilitator, Lupe Velasquez. Plan: - Referral to Pancreatobiliary surgeon at [facility] - scheduled with Dr. Balbuena on 06/25/23. Diagnostic laparoscopy recommended per [facility]. Anticipate that mediport will be placed the same day. - Labs at [facility], same day as surgery appt - to include PGX testing (patient aware and will stop at lab) - Referral to our Clinical Glassware Selector, Lupe Velasquez - Referral to Familial cancer Program - done on 06/13/23. Blood to be drawn for genetic testing in St. once treatment starts - f/u in St for neoadjuvant therapy after laparoscopy. I provided care to the patient today via telephone call. The total time associated with this visit was 30 minutes. documented in this encounter Plan of Treatment Upcoming Encounters Date Type Department Care Team (Late st Contact Info) Description 04/09/2024 9:30 AM EST Office Visit Hematology/Oncology at [address] [phone] Cl Hess MD [facility] [place] [address] [address] HEMATOLOGY AND ONCOLOGY [place], [place] [address] 04/09/2024 10:00 AM EST Infusion Hematology Oncology at [address] [phone] 04/23/2024 9:30 AM EST Office Visit Hematology/Oncology at [address] [phone] Cl Hess MD [facility] [place] [address] [address] HEMATOLOGY AND ONCOLOGY [place], [place] [address] 04/23/2024 10:00 AM EST Infusion Hematology Oncology at [address] [phone] 05/18/2024 4:30 PM EDT TH Visit (TeleHealth) [place] [address] Malachi Rothman MD [facility] DR [place] [address] 09/24/2024 9:00 AM EDT Office Visit Radiation Oncology at [address] [phone] Ping Moore PA [facility] DR HEMATOLOGY [place] [address] Scheduled Orders Name Type Priority Associated Diagnoses [...] CHEMISTRY ORDERABLES [facility] [place] [address] * (ABNORMAL) Comprehensive metabolic panel (non-fasting) (06/25/2023 [...] CHEMISTRY ORDERABLES [facility] [place] [address] * PGx Oncology (06/25/2023 2:37 PM EDT) Blood VENOUS BLOOD SPECIMEN / Unknown 06/25/2023 2:37 PM EDT 06/26/2023 8:27 AM EDT Narrative Resulting Agency Comment Spec In Lab Cl Hess MD MOLECULAR ORDERABLES [facility] [place] [address] documented in this encounter Visit Diagnoses Diagnosis Malignant neoplasm of head of pancreas documented in this encounter Care Teams Kick Plate Installer Relationship Specialty Start Date End Date Alo Carey DO [address] [place] [address] [place] [phone] PCP - General Internal Medicine 08/31/20 07/03/23 documented as of this encounter
--- OUTSIDE RECORDS SUMMARY | 2024-03-26 10:37 | XMS_ITS | Encounter Summary ---
Author Organization [facility] Address [facility] [place] [address] Care Team Providers Care Social Worker Assistant Name Role Phone Alo Carey Primary Care Provider Encounter Details Date Type Department Care Team (Latest Contact Info) Description 06/18/2023 9:10 AM EDT Ancillary Procedure Radiology Library at [facility] [place] [address] Cl Hess MD [facility] [address] Malignant neoplasm of head of pancreas Social History Tobacco Use Types Packs/Day Years Used Date Smoking Tobacco: Former Cigarettes 4 30 1 - 1992 Smokeless Tobacco: Never Alcohol Use Standard Drinks/Week Comments Yes 7 (1 standard drink = 0.6 oz pur e alcohol) [facility] Utilities Answer Date Recorded In the past 12 months has [employer] electric, gas, oil, or water company [...] a care home (including now)? No 06/04/2023 Sex and Gender Information Value Date Recorded Sex Assigned at Not on file Gender Identity Not on file Sexual Orientation Not on file documented as of this encounter Plan of Treatment Upcoming Encounters Date Type Department Care Team (Late st Contact Info) Description 04/09/2024 9:30 AM EST Office Visit Hematology/Oncology at [address] [phone] Cl Hess MD [facility] [place] [address] Yessi Renee APRN [address] [place] [address] DR HEMATOLOGY AND ONCOLOGY [place], [place] [phone] 04/09/2024 10:00 AM EST Infusion Hematology Oncology at [address] [phone] 04/23/2024 9:30 AM EST Office Visit Hematology/Oncology at [address] [phone] Cl Hess MD [facility] [place] [address] Yessi Renee APRN [address] [place] [address] DR [place] [address] 04/23/2024 10:00 AM EST Infusion Hematology Oncology at [address] [phone] 05/18/2024 4:30 PM EDT TH Visit (TeleHealth) [place] [address] Malachi Rothman MD [facility] [place] [address] 09/24/2024 9:00 AM EDT Office Visit Radiation Oncology at [address] [phone] Ping Moore PA [facility] [place] [address] documented as of this encounter Procedures Procedure [...] who have questions please contact the health clinical manager home care that requested your imaging first. ? Narrative [...] of outside imaging study * ??Sending Institution [facility] * ??Date of exam [id number] * ??I believe a reinterpretation of this exam may alter care of Patient. Yes TECHNIQUE: CT of the chest was obtained without intravenous contrast also performed at the [facility] also performed on May 22, 2023. ?? CT of the abdomen with intravenous contrast was performed at the [facility] on May 22, 2023. ??Helical CT images [...] evaluation of the mediastinum, and vascular structures. [employer] Staff Officer Images: Noncontributory. CT OF THE CHEST: Pulmonary [...] multilevel facet arthropathy. Procedure Note Rafael Ansari, - 06/18/2023 EXAMINATION: * REQUEST FOR 2ND READ CT CHEST AND ABDOMEN * CT OF THE CHEST WITHOUT INTRAVENOUS CONTRAST. * CT OF THE ABDOMEN WITH INTRAVENOUS CONTRAST. CLINICAL HISTORY: 73-year-old male recently diagnosed with pancreaticcancer around subcutaneous alignment. Staging. Assessment for metastaticdisease. Request for second interpretation of outside imaging study * Sending Institution [facility] * Date of exam [id number] * I believe a reinterpretation of this exam may alter care of Patient.Yes TECHNIQUE: CT of the chest was obtained without intravenous contrastalso performed at the [facility] also performed onMay 22, 2023. CT of the [facility] with [facility]. Helical CT imagesof [...] limits evaluation of themediastinum, and vascular structures. [employer] Staff Officer Images: Noncontributory. CT OF THE CHEST: Pulmonary [...] pancreatic duct is dilated, with a maximal foqpsvih41 mm within the pancreatic neck. Vascular involvement: [...] patients who have questions please contactthe health clinical manager home care that requested your imaging first. Cl Hess MD IMG OUTSIDE [facility] TATION ORDERABLES documented in this encounter Visit Diagnoses Diagnosis Malignant neoplasm of head of pancreas documented in this encounter Care Teams Social Worker Assistant Relationship Specialty Start Date End Date Alo Carey DO [address] [place] [address] [place] [phone] PCP - General Internal Medicine 08/31/20 07/03/23 documented as of this encounter
--- OUTSIDE RECORDS SUMMARY | 2024-03-26 10:37 | XMS_ITS | Encounter Summary ---
[place] [address] Care Team Providers Care Corporate Legal Assistant Name Role Phone Alo Carey Primary Care Provider [phone] Encounter Details Date Type Department Care Team [...] Recorded In the past 12 months has [employer] electric, gas, oil, or water company threatened [...] AM EST Office Visit Hematology/Oncology at [address] [phone] Cl Hess MD [facility] [place] [address] Yessi Renee APRN [address] [place] [address] DR HEMATOLOGY [place] [address] 04/09/2024 10:00 AM EST Infusion Hematology Oncology at [address] [phone] 04/23/2024 9:30 AM EST Office Visit Hematology/Oncology at [address] [phone] Cl Hess MD [facility] [place] [address] Yessi Renee APRN [address] [place] [address] DR HEMATOLOGY AND ONCOLOGY [place], [place] [address] 04/23/2024 10:00 AM EST Infusion Hematology Oncology at [address] [phone] 05/18/2024 4:30 PM EDT TH Visit (TeleHealth) [place] [address] Malachi Rothman MD [facility] [place] [address] 09/24/2024 9:00 AM EDT Office Visit Radiation Oncology at [address] [phone] Ping Moore PA [facility] [place] [address] documented as of this encounter Visit Diagnoses Not on filedocumented in this encounter Care Teams Corporate Legal Assistant Relationship Specialty Start Date End Date Alo Carey DO [address] [place] [address] [place] [phone] PCP - General Internal Medicine 08/31/20 07/03/23 documented as of this encounter
--- OUTSIDE RECORDS SUMMARY | 2024-03-26 10:37 | XMS_ITS | Encounter Summary ---
[place] [address] Care Team Providers Care Developmental Training Counselor Name Role Phone YungAlo santiago Primary Care Provider [phone] Encounter Details Date Type Department Care Team (Late st Contact Info) Description 06/25/2023 2:35 PM EDT Laboratory Appointment Lab [address] [place] [address] Social History Tobacco Use Types Packs/Day Years Used Date Smoking Tobacco: Former Cigarettes 4 30 1 963 - 1992 Smokeless Tobacco: Never Alcohol Use Standard Drinks/Week Comments Yes 7 (1 standard drink = 0.6 oz pur e alcohol) [facility] Utilities Answer Date Recorded In the past 12 months has [employer] gas, oil, or water [employer] threatened to shut off services in your [...] AM EST Office Visit Hematology/Oncology at [address] [phone] Cl Hess MD [facility] [place] [place] [address] Yessi Renee APRN [address] [place] [address] DR HEMATOLOGY AND ONCOLOGY [place], [place] [address] 04/09/2024 10:00 AM EST Infusion Hematology Oncology at [address] [phone] 04/23/2024 9:30 AM EST Office Visit Hematology/Oncology at [address] [phone] Cl Hess MD [facility] [place] [address] Yessi Renee APRN [address] [place] [address] DR HEMATOLOGY [place] [address] 04/23/2024 10:00 AM EST Infusion Hematology Oncology at [address] [phone] 05/18/2024 4:30 PM EDT TH Visit (TeleHealth) [place] [address] Malachi Rothman MD [facility] [place] [address] 09/24/2024 9:00 AM EDT Office Visit Radiation Oncology at [address] [phone] Ping Moore PA [facility] [place] [address] documented as of this encounter Visit Diagnoses Not on filedocumented in this encounter Care Teams Developmental Training Counselor Relationship Specialty Start Date End Date Alo Carey DO [address] [place] [address] [place] [phone] PCP - General Internal Medicine 08/31/20 07/03/23 documented as of this encounter
--- OUTSIDE RECORDS SUMMARY | 2024-03-26 10:37 | XMS_ITS | Encounter Summary ---
Author Organization [facility] [place] [address] Care Team Providers Care Marketing Engineer Name Role Phone Alo Carey Primary Care Provider [phone] Encounter Details Date Type Department Care Team (Latest Contact Info) Description 06/18/2023 Multidisciplinary Ca re Committee [place]ematology [place] [phone] Cl Hess MD [facility] [place] [address] Malignant neoplasm of head of pancreas Social History Tobacco Use Types Packs/Day Years Used Date Smoking Tobacco: Former Cigarettes 4 30 1 - 1992 Smokeless Tobacco: Never Alcohol Use Standard Drinks/Week Comments Yes 7 (1 standard drink = 0.6 oz pur e alcohol) [facility] Utilities Answer Date Recorded In the past 12 months has [employer] electric, gas, oil, or water company threatened [...] was recommended but not performed. While in [facility], he presented with chest pain and [...] AM EST Office Visit Hematology/Oncology at [address] [phone] Cl Hess MD [facility] [place] [address] [address] HEMATOLOGY AND ONCOLOGY [place], [place] [address] 04/09/2024 10:00 AM EST Infusion Hematology Oncology at [address] [phone] 04/23/2024 9:30 AM EST Office Visit Hematology/Oncology at [address] [phone] Cl Hess MD [facility] [place] [address] [address] HEMATOLOGY AND ONCOLOGY [place], [place] [address] 04/23/2024 10:00 AM EST Infusion Hematology Oncology at [address] [phone] 05/18/2024 4:30 PM EDT TH Visit (TeleHealth) [place] [address] Malachi Rothman MD [facility] [place] [address] 09/24/2024 9:00 AM EDT Office Visit Radiation Oncology at [address] [phone] Ping Moore PA [facility] [place] [address] documented as of this encounter Results * [...] connector that requested your imaging first. ? Electronically signed by: Rafael Ansari DO, [facility] ([phone]), at 06/18/2023 9:36 AM Narrative 06/18/2023 9:36 [...] at the [facility] also performed on May 22, 2023. ?? CT of the abdomen with intravenous contrast was performed at the [facility] on May 22, 2023. ??Helical CT images [...] evaluation of the mediastinum, and vascular structures. [employer] Rec[employer] Images: Noncontributory. CT OF THE CHEST: Pulmonary [...] at the [facility] also performed onMay 22, 2023. CT of the abdomen with intravenous contrast was performed at[facility] on May 22, 2023. Helical CT imagesof [...] limits evaluation of themediastinum, and vascular structures. Restaurant Rec[employer]iter Images: Noncontributory. CT OF THE CHEST: Pulmonary [...] care connector that requested your imaging first. 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
--- OUTSIDE RECORDS SUMMARY | 2024-03-26 10:37 | XMS_ITS | Encounter Summary ---
[place] [address] Care Team Providers Care Ultrasonic Tester Name Role Phone Alo Carey Primary Care Provider [phone] Encounter Details Date Type Department Care Team [...] Recorded In the past 12 months has [email or web address] electric, gas, oil, or water company threatened [...] AM EST Office Visit Hematology/Oncology at [address] [phone] Cl Hess MD [facility] [place] [address] Yessi Renee APRN [address] [place] [address] DR HEMATOLOGY [place] [address] 04/09/2024 10:00 AM EST Infusion Hematology Oncology at [address] [phone] 04/23/2024 9:30 AM EST Office Visit Hematology/Oncology at [address] [phone] Cl Hess MD [facility] [place] [address] Yessi Renee APRN [address] [place] [address] DR HEMATOLOGY AND ONCOLOGY [place], [place] [address] 04/23/2024 10:00 AM EST Infusion Hematology Oncology at [address] [phone] 05/18/2024 4:30 PM EDT TH Visit (TeleHealth) [place] [address] Malachi Rothman MD [facility] [place] [address] 09/24/2024 9:00 AM EDT Office Visit Radiation Oncology at [address] [phone] Ping Moore PA [facility] DR [place] [address] documented as of this encounter Visit Diagnoses Not on filedocumented in this encounter Care Teams Ultrasonic Tester Relationship Specialty Start Date End Date Alo Carey DO [address] [place] [address] [place] [phone] PCP - General Internal Medicine 08/31/20 07/03/23 documented as of this encounter
--- OUTSIDE RECORDS SUMMARY | 2024-03-26 10:37 | XMS_ITS | Encounter Summary ---
Author Organization [facility] [place] [address] Care Team Providers Care Spare Hand Name Role Phone Alo Carey DO Primary Care Provider [phone] Reason for Referral * Consultation (Urgent) - Closed Specialty Diagnoses / Procedures Referred By Marques livingston Referred To Contact Gastroenterology Diagnoses Malignant neoplasm of head of pancreas Hyperbilirubinemia Procedures Bets- 1-2 weeks EUS/ERCP Cl Hess MD [facility] [place] [address] [facility] Endoscopy [address] [place] [address] Referral ID Status Reason Start Date Expiration Date V isits Requested Visits Authorized [id number] Closed Specialty Service Requested 06/26/2023 06/25/2024 1 1 Encounter Details Date Type Department Care Team (Late st Contact Info) Description 06/26/2023 Orders Only Hematology and Oncology at [place] [place] [address] Cl Hess MD [facility] [place] [address] Malignant neoplasm of head of pancreas; Hyperbilirubinemia [...] labs from 05/15 which was done in [place]. During the course of his diagnostic work-up in [place], he had undergone ERCP on 04/29/23 and [...] AM EST Office Visit Hematology/Oncology at [address] [phone] Cl Hess MD [facility] [place] [address] Yessi Renee APRN [address] [place] [address] DR HEMATOLOGY [place] [address] 04/09/2024 10:00 AM EST Infusion Hematology Oncology at [address] [phone] 04/23/2024 9:30 AM EST Office Visit Hematology/Oncology at [address] [phone] Cl Hess MD [facility] [place] [address] Yessi Renee APRN [address] [place] [address] DR HEMATOLOGY AND ONCOLOGY [place], [place] [address] 04/23/2024 10:00 AM EST Infusion Hematology Oncology at [address] [phone] 05/18/2024 4:30 PM EDT TH Visit (TeleHealth) [place] [address] Malachi Rothman MD [facility] [place] [address] 09/24/2024 9:00 AM EDT Office Visit Radiation Oncology at [address] [phone] Ping Moore PA [facility] DR [place] [address] Scheduled Referrals Name Type Priority Associated Diagnoses Order Schedule Referral to Gastroenterology Outpatient Referral Routine Malignant neoplasm of head of pancreas Hyperbilirubinemia Ordered: 06/26/2023 documented as of this encounter Visit Diagnoses Diagnosis Malignant neoplasm of head of pancreas Hyperbilirubinemia Jaundice, unspecified, not of documented in this encounter Care Teams Spare Hand Relationship Specialty Start Date End Date Alo Carey DO [address] [place] [address] [place] [address] PCP - General Internal Medicine 08/31/20 07/03/23 documented as of this encounter
--- OUTSIDE RECORDS SUMMARY | 2024-03-26 10:37 | XMS_ITS | Encounter Summary ---
[place] [address] Care Team Providers Care Registered Nurses Name Role Phone YungAlo santiago Primary Care Provider [phone] Encounter Details Date Type Department Care Team (Late st Contact Info) Description 10/12/2022 9:30 AM EDT Tech [place] [phone] Floridalma Brewer Presence of internal carotid stent [...] AM EST Office Visit Hematology/Oncology at [address] [phone] Cl Hess MD [facility] [place] [address] [address] HEMATOLOGY AND ONCOLOGY [place], [place] [address] 04/09/2024 10:00 AM EST Infusion Hematology Oncology at [address] [phone] 04/23/2024 9:30 AM EST Office Visit Hematology/Oncology at [address] [phone] Cl Hess MD [facility] [place] [address] [address] HEMATOLOGY AND ONCOLOGY [place], [place] [address] 04/23/2024 10:00 AM EST Infusion Hematology Oncology at [address] [phone] 05/18/2024 4:30 PM EDT TH Visit (TeleHealth) [place] [address] Malachi Rothman MD [facility] [place] [address] 09/24/2024 9:00 AM EDT Office Visit Radiation Oncology at [address] [phone] Ping Moore PA [facility] DR [place] [address] documented as of this encounter Procedures Procedure Name Priority Date/Time Associated Diagnosis Comments CAROTID DUPLEX, BILATERAL Routine 10/12/2022 9:31 AM EDT Presence of internal carotid stent documented in this encounter Results * Carotid Duplex, Bilateral (10/12/2022 9:31 AM EDT) VB Text Report Department: Vascular Surgery Lab Patient: [id number] (THA SADLER) CPT: 05770 Referring Physician: BASIM BARR ?? Indications: HX [...] stent documented in this encounter Care Teams Registered Nurses Relationship Specialty Start Date End Date Alo Carey DO [address] [place] [address] [place] [phone] PCP - General Internal Medicine 08/31/20 07/03/23 documented as of this encounter
--- OUTSIDE RECORDS SUMMARY | 2024-03-26 10:37 | XMS_ITS | Encounter Summary ---
Author Organization [facility] Address [facility] [place] [address] Care Team Providers Care Hay Rake Operator Name Role Phone Alo Carey DO Primary Care Provider [phone] Reason for Referral * Consultation (Routine) - Closed Specialty Diagnoses / Procedures Referred By Marques livingston Referred To Contact Diagnoses Malignant neoplasm of prostate Bela Charles APRN [facility] [place] [address] Rock Myers MD [address] [place] [id number] Referral ID Status Reason Start Date Expiration Date V isits Requested Visits Authorized [id number] Closed Consult, Test & Treat 07/31/2022 01/27/2023 3 3 Encounter Details Date Type Department Care Team (Late st Contact Info) Description 07/31/2022 3:15 PM EDT Office Visit Radiation Oncology at [address] [phone] Bela Charles, MISSILE CONTROL PILOT [facility] [place] [address] Malignant neoplasm of prostate (Primary Dx) Social [...] planned x 18 mos, compl VMRT 09/06/21 [facility] [place] [address] Phone: RADIATION ONCOLOGY FOLLOW UP NOTE Dr [...] and 2 months. He will be in [place] at time his next shot is due [...] HPI: I reviewed the following outside notes: [place] [facility] he and his partner go there qday [...] not seen Dr Carey since returning home. Bradley Ira Clifton for appt recently with neurophthalmology. [...] not want to fall. He goes to [employer] and pushes cart to walk. Weight/appetite/diet: Has [...] hx TIAs x 3 when in the [place] over winter. Mood:feels he is ok Sleep: [...] receive a dose of Lupron when in [place] but labs were done there and he [...] the radiation therapy/prostate cancer Bela Charles MSN, MISSILE CONTROL PILOT, EVENT PLANNING MANAGER-C Nurse Practitioner Radiation Oncology documented in this encounter Plan of Treatment Upcoming Encounters Date Type Department Care Team (Late st Contact Info) Description 04/09/2024 9:30 AM EST Office Visit Hematology/Oncology at [address] [phone] Cl Hess MD [facility] [place] [address] Yessi Renee [address] [place] [address] 04/09/2024 10:00 AM EST Infusion Hematology Oncology at [address] [phone] 04/23/2024 9:30 AM EST Office Visit Hematology/Oncology at [address] [phone] Cl Hess MD [facility] [place] [address] Yessi Renee MISSILE CONTROL PILOT [address] [place] [address] DR HEMATOLOGY AND ONCOLOGY [place], [place] [address] 04/23/2024 10:00 AM EST Infusion Hematology Oncology at [address] [phone] 05/18/2024 4:30 PM EDT TH Visit (TeleHealth) [place] [address] Malachi Rothman MD [facility] [place] [address] 09/24/2024 9:00 AM EDT Office Visit Radiation Oncology at [address] [phone] Ping Moore PA [facility] DR HEMATOLOGY [place] [address] Scheduled Referrals Name Type Priority Associated Diagnoses Orde r Schedule Referral to Urology Outpatient Referral Routine Malignant neoplasm of prostate Ordered: 07/31/2022 documented as of this encounter Results * Testosterone, total (06/25/2023 2:37 PM EDT) [facility] Testosterone 2.12 1.93 - 7.40 ng/mL [facility] [...] Resulting Agency Comment Spec In Lab Bela Cahrles APRN CHEMISTRY ORDERABLES Performing Organization Address [facility] de Phone Number [facility] [place] [address] * PSA (Ultrasensitive) (06/25/2023 2:37 PM EDT) [...] Charles APRN CHEMISTRY ORDERABLES Performing Organization Address [facility] Co de Phone Number [facility] [place] [address] documented in this encounter Visit Diagnoses Diagnosis Malignant neoplasm of prostate- Primary documented in this encounter Care Teams Hay Rake Operator Relationship Specialty Start Date End Date Alo Carey DO [address] [place] [address] [place] [address] PCP - General Internal Medicine 08/31/20 07/03/23 documented as of this encounter
--- OUTSIDE RECORDS SUMMARY | 2024-03-26 10:37 | XMS_ITS | Encounter Summary ---
[place] [address] Care Team Providers Care Lead Cashier Name Role Phone Alo Carey Primary Care Provider [phone] Encounter Details Date Type Department Care Team (Late st Contact Info) Description 06/29/2022 Orders Only Radiation Oncology at [address] [place] [address] Bigg Peters MD [address] [place] [address] DR RADIATION ONCOLOGY [place], [place] [phone] Carcinoma of prostate Social History Tobacco Use [...] AM EST Office Visit Hematology/Oncology at [address] [phone] Cl Hess MD [facility] [place] [address] [address] HEMATOLOGY AND ONCOLOGY [place], [place] [phone] 04/09/2024 10:00 AM EST Infusion Hematology Oncology at [address] [phone] 04/23/2024 9:30 AM EST Office Visit Hematology/Oncology at [address] [phone] Cl Hess MD [facility] [place] [address] [address] HEMATOLOGY AND ONCOLOGY [place], [place] [address] 04/23/2024 10:00 AM EST Infusion Hematology Oncology at [address] [phone] 05/18/2024 4:30 PM EDT TH Visit (TeleHealth) [place] [address] Malachi Rothman MD [facility] [place] [address] 09/24/2024 9:00 AM EDT Office Visit Radiation Oncology at [address] [phone] Ping Moore PA [facility] [place] [address] documented as of this encounter Visit Diagnoses Diagnosis Carcinoma of prostate Malignant neoplasm of prostate documented in this encounter Care Teams Lead Cashier Relationship Specialty Start Date End Date Alo Carey DO [address] [place] [address] [place] [address] PCP - General Internal Medicine 08/31/20 07/03/23 documented as of this encounter
--- OUTSIDE RECORDS SUMMARY | 2024-03-26 10:37 | XMS_ITS | Encounter Summary ---
Author Organization [facility] [place] [address] Care Team Providers Care Latin Dance Instructor Name Role Phone Alo Carey DO Primary Care Provider [phone] Encounter Details Date Type Department Care Team (Late st Contact Info) Description 06/19/2023 [place] [phone] Provider, Scanning Social History Tobacco Use Types Packs/Day Years Used Date Smoking Tobacco: Former Cigarettes 4 30 1 963 - 1992 Smokeless Tobacco: Never Alcohol Use Standard Drinks/Week Comments Yes 7 (1 standard drink = 0.6 oz pur e alcohol) [facility] Utilities Answer Date Recorded In [...] AM EST Office Visit Hematology/Oncology at [address] [phone] Cl Hess MD [facility] [place] [address] Yessi Renee DIE EQUIPMENT OPERATOR [address] [place] [address] DR HEMATOLOGY [place] [address] 04/09/2024 10:00 AM EST Infusion Hematology Oncology at [address] [phone] 04/23/2024 9:30 AM EST Office Visit Hematology/Oncology at [address] [phone] Cl Hess MD [facility] [place] [address] Yessi Renee APRN [address] [place] [address] DR HEMATOLOGY [place] [address] 04/23/2024 10:00 AM EST Infusion Hematology Oncology at [address] [phone] 05/18/2024 4:30 PM EDT TH Visit (TeleHealth) [place] [address] Malachi Rothman MD [facility] [place] [address] 09/24/2024 9:00 AM EDT Office Visit Radiation Oncology at [address] [phone] Ping Moore PA [facility] [place] [address] documented as of this encounter Procedures Procedure Name Priority Date/Time Associated Diagnosis Comments SURGICAL PATHOLOGY SCAN Routine 06/19/2023 documented in this encounter Results * Scan Doc: Surgical Pathology (06/19/2023) Historical Provider MD CADE MGR SCAN EX T ORDR/RSLT documented in this encounter Visit Diagnoses Not on filedocumented in this encounter Care Teams Latin Dance Instructor Relationship Specialty Start Date End Date Alo Carey DO [address] [place] [address] [place] [phone] PCP - General Internal Medicine 08/31/20 07/03/23 documented as of this encounter
--- OUTSIDE RECORDS SUMMARY | 2024-03-26 10:37 | XMS_ITS | Encounter Summary ---
[place] [address] Care Team Providers Care Digital Account Executive Name Role Phone YungAlo santiago Primary Care Provider [phone] Reason for Visit * Reason Comments Medication Refill Encounter Details Date Type Department Care Team (Late Contact Info) Description 07/29/2022 Refill Radiation Oncology at [address] [phone] Bigg Peters MD [address] [place] [address] [place] [address] Malignant neoplasm of prostate Social [...] Department Care Team (Late Contact Info) Description 04/09/2024 9:30 AM EST Office Visit Hematology/Oncology at [address] [phone] Cl Hess MD [facility] [place] [address] [address] HEMATOLOGY AND ONCOLOGY [place], [place] [phone] 04/09/2024 10:00 AM EST Infusion Hematology Oncology at [address] [phone] 04/23/2024 9:30 AM EST Office Visit Hematology/Oncology at [address] [phone] Cl Hess MD [facility] [place] [address] Yessi Renee, [address] HEMATOLOGY AND ONCOLOGY [place], [place] [phone] 04/23/2024 10:00 AM EST Infusion Hematology Oncology at [address] [phone] 05/18/2024 4:30 PM EDT TH Visit (TeleHealth) [place] [address] Malachi Rothman MD [facility] [place] [address] 09/24/2024 9:00 AM EDT Office Visit Radiation Oncology at [address] [phone] Ping Moore PA [facility] DR [place] [address] documented as of this encounter Visit Diagnoses Diagnosis Malignant neoplasm of prostate documented in this encounter Care Teams Digital Account Executive Relationship Specialty Start Date End Date Alo Carey DO [address] [place] [address] [place] [phone] PCP - General Internal Medicine 08/31/20 07/03/23 documented as of this encounter
--- OUTSIDE RECORDS SUMMARY | 2024-03-26 10:37 | XMS_ITS | Encounter Summary ---
Author Organization [facility] [place] [address] Care Team Providers Care Instructor Of Spanish Name Role Phone Alo Carey DO Primary Care Provider [phone] Encounter Details Date Type Department Care Team (Late st Contact Info) Description 05/22/2023 Ancillary Procedure Radiology Library at [facility] [place] [address] Charu Balbuena MD [facility] [place] [address] Social History Tobacco Use Types Packs/Day Years [...] AM EST Office Visit Hematology/Oncology at [address] [phone] Cl Hess MD [facility] [place] [address] [address] HEMATOLOGY AND ONCOLOGY [place], [place] [phone] 04/09/2024 10:00 AM EST Infusion Hematology Oncology at [address] [phone] 04/23/2024 9:30 AM EST Office Visit Hematology/Oncology at [address] [phone] Cl Hess MD [facility] [place] [address] [address] HEMATOLOGY AND ONCOLOGY [place], [place] [address] 04/23/2024 10:00 AM EST Infusion Hematology Oncology at [address] [phone] 05/18/2024 4:30 PM EDT TH Visit (TeleHealth) [place] [address] Malachi Rothman MD [facility] [place] [address] 09/24/2024 9:00 AM EDT Office Visit Radiation Oncology at [address] [phone] Ping Moore PA [facility] HEMATOLOGY [place] [address] documented as of this encounter Procedures Procedure Name Priority Date/Time Associated Diagnosis Comments FILM LIBRARY STORAGE ONLY CT CHEST ABDOMEN PELVIS Routine 05/22/2023 12:00 AM EDT documented in this encounter Results * Film Library- Storage Only CT Chest Abdomen Pelvis (05/22/2023 12:00 AM EDT) Narrative [facility] - 06/17/2023 2:54 PM EDT This exam is auto-finalizing. It's purpose is for storage only. Charu Balbuena MD IMG FILM LIBRARY O RDERABLES Performing Organization Address City/State/[facility] Co de Phone Number [place], [place] documented in this encounter Visit Diagnoses Not on filedocumented in this encounter Care Teams Instructor Of Spanish Relationship Specialty Start Date End Date Alo Carey DO [address] [place] [address] [place] [address] PCP - General Internal Medicine 08/31/20 07/03/23 documented as of this encounter
--- OUTSIDE RECORDS SUMMARY | 2024-03-26 10:37 | XMS_ITS | Encounter Summary ---
[place] [address] Care Team Providers Care Powder Shoveler Name Role Phone YungAlo santiago Primary Care Provider [phone] Encounter Details Date Type Department Care Team (Latest Contact Info) Description 06/19/2023 4:31 PM EDT - 06/19/2023 11:59 PM EDT Hospital [place] [phone] Discharge Disposition: Home Social History Tobacco Use [...] mg by mouth as needed. 05/20/2023 omega 2-hss-dwe-fish oil 250-350-1,000 mg Capsule Take 1,000 mg [...] (E.C.) Take 81 mg by mouth daily. eyonka-qpeqcqxn-dsdt ase (Creon 24) 24,000-76,000 -120,000 unit capsuleIndications:M [...] AM EST Office Visit Hematology/Oncology at [address] [phone] Cl Hess MD [facility] [place] [address] Yessi Renee APRN [address] [place] [address] DR HEMATOLOGY AND ONCOLOGY [place], [place] [phone] 04/09/2024 10:00 AM EST Infusion Hematology Oncology at [address] [phone] 04/23/2024 9:30 AM EST Office Visit Hematology/Oncology at [address] [phone] Cl Hess MD [facility] [place] [address] Yessi Renee APRN [address] [place] [address] [place] [address] 04/23/2024 10:00 AM EST Infusion Hematology Oncology at [address] [phone] 05/18/2024 4:30 PM EDT TH Visit (TeleHealth) [place] [address] Malachi Rothman MD [facility] [place] [address] 09/24/2024 9:00 AM EDT Office Visit Radiation Oncology at [address] [phone] Ping Moore PA [facility] DR [place] [address] documented as of this encounter Procedures Procedure Name Priority Date/Time Associated Diagnosis Comments NON-SENIOR ADMINISTRATIVE SUPPORT FINAL REPORT Routine 06/19/2023 4:33 PM EDT SURGICAL PATHOLOGY REPORT Routine 06/19/2023 4:32 PM EDT documented in this encounter Results * (ABNORMAL) Non-New Accounts Banking Representative Final Report (06/19/2023 4:33 PM EDT) Non-New Accounts Banking Representative Final Report [id number] ? Location: [facility] The signing pathologist has (i) examined the relevant preparation(s) for the specimen(s) and (ii) rendered or confirmed the diagnosis(es). . ? Non-New Accounts Banking Representative Final DIAGNOSIS Suspicious for Malignancy Electronically signed by: ?Kylee HIGHTOWER PhD, Kit Deutsch Verified: ??07/02/2023 16:32 ??Pathologist Performed at: ??-[facility] Dept. of Pathology, [place] [address] Turn Out: Ilan Martinez MD, [facility], ??CLIA Certificate: [id number] DISCUSSION The specimen contains rare clusters of highly atypical epithelioid cells with macrocytosis and prominent nucleoli. ?? Cell block was examined. See note. Note: The findings are suspicious for adenocarcinoma. THIS RESULT REQUIRES PHYSICIAN/A.P.P. FOLLOW UP CLINICAL INFORMATION CONSULTATION CASE Source: ? Pancreas, head (EUS-guided FNA) Clinical History: ? Mass . Received 3 slide(s) labeled [id number] Received 0 block(s). Specimen collection date: ? 04/29/2023. Surgical consult slides also received. For the full text of the [facility] report(s), please refer to [facility] Tracking #: ? [id number] . Report to: [facility] [address] [place] [address] [phone] ext [phone](A) [facility] 06/19/2023 4:33 PM EDT Charu Balbuena MD PATHOLOGY/CYTOLOGY ORDERABLES [facility] [place] [id number] * (ABNORMAL) Surgical Pathology Report (06/19/2023 4:32 PM EDT) Final Diagnosis [id number] ? Location: [facility] The signing pathologist has (i) examined the relevant preparation(s) for the specimen(s) and (ii) rendered or confirmed the diagnosis(es). . ?Surgical Pathology DIAGNOSIS CONSULTATION CASE Outside slide(s) labeled [id number], collection date 04/29/2023. A. Head of pancreas mass, biopsy: - Scant epithelium with marked atypia, suspicious for adenocarcinoma. Electronically signed by: ?Maged HIGHTOWER PhD, Li Verified: ??07/02/2023 14:29 ??Pathologist Performed at: ??-[facility] Dept. of Pathology, [place] [address] Turn Out: Ilan Martinez MD, AP, ??CLIA Certificate: [id number] DISCUSSION The case was reviewed at the GI pathology consensus conference. THIS RESULT REQUIRES PHYSICIAN/A.P.P . FOLLOW UP SPECIMEN(S) SUBMITTED CONSULTATION CASE A - 2 slide(s) labeled [id number], collection date 04/29/2023. [id number] Cytology consult slides also received. CARBON COPY: [facility] [address] [place] [address] [phone] ext [phone] CLINICAL INFORMATION Head of ??pancreas mass. SPECIMEN PROCESSING [facility] ([facility]) pathology slide(s) are reviewed. Refer to Diagnosis and Specimen Submitted for specific case information. For the full text of the [facility] report(s) please refer to the Chart Review Media tab in the electronic health record (eDH).(A) 07/02/2023 2:29 PM EDT [facility] Consult Case 06/19/2023 4:32 PM EDT 06/19/2023 4:32 PM EDT Charu Balbuena MD PATHOLOGY/CYTOLOGY ORDERABLES Performing Organization Address City/State/[facility] Co de Phone Number [facility] [place] [address] documented in this encounter Visit Diagnoses Not on filedocumented in this encounter Care Teams Powder Shoveler Relationship Specialty Start Date End Date Alo Carey DO [address] [place] [address] [place] [address] PCP - General Internal Medicine 08/31/20 07/03/23 documented as of this encounter
--- OUTSIDE RECORDS SUMMARY | 2024-03-26 10:37 | XMS_ITS | Encounter Summary ---
Author Organization [facility] [place] [address] Care Team Providers Care Ceramics Machine Operator Name Role Phone Alo Carey DO Primary Care Provider [phone] Encounter Details Date Type Department Care Team [...] AM EST Office Visit Hematology/Oncology at [address] [phone] Cl Hess MD [facility] [place] [address] Yessi Renee, [address] HEMATOLOGY AND ONCOLOGY [place], [place] [phone] 04/09/2024 10:00 AM EST Infusion Hematology Oncology at [address] [phone] 04/23/2024 9:30 AM EST Office Visit Hematology/Oncology at [address] [phone] Cl Hess MD [facility] [place] [place] [address] HEMATOLOGY AND ONCOLOGY [place], [place] [id number] 04/23/2024 10:00 AM EST Infusion Hematology Oncology at [address] [phone] 05/18/2024 4:30 PM EDT TH Visit (TeleHealth) [place] [address] Malachi Rothman MD [facility] [place] [address] 09/24/2024 9:00 AM EDT Office Visit Radiation Oncology at [address] [phone] Ping Moore PA [facility] DR [place] [address] documented as of this encounter Visit Diagnoses Not on filedocumented in this encounter Care Teams Ceramics Machine Operator Relationship Specialty Start Date End Date Alo Carey DO [address] [place] [address] [place] [phone] PCP - General Internal Medicine 6/30/21 5/1/24 documented as of this encounter
--- OUTSIDE RECORDS SUMMARY | 2024-03-26 10:37 | XMS_ITS | Encounter Summary ---
Author Organization [place] [address] Care Team Providers Care Human Capital Analyst Name Role Phone Alo Carey DO Primary Care Provider [phone] Reason for Referral * Diagnostic Test (Routine) - Closed Specialty Diagnoses / Procedures Referred By Marques livingston Referred To Contact Diagnoses Symptomatic stenosis of both carotid arteries Procedures Carotid Duplex, Bilateral Basim Barr MD [facility] [place] [address] [facility] Vascular Lab [address] [place] [address] Referral ID Status Reason Start Date Expiration Date V isits Requested Visits Authorized [id number] Closed Specialty Service Requested 10/23/2022 11/26/2023 1 1 Encounter Details Date Type Department Care Team (Late st Contact Info) Description 10/12/2022 10:45 AM EDT Office [place] [address] Basim Barr MD [facility] [place] [address] Symptomatic stenosis of both carotid arteries Social [...] ocular event. Note from Vascular surgeon in [place] who did his R CEA I believe [...] left eye. He has not seen an hardness tester in some time. reports that he quit [...] NIGHT, Disp: 30 capsule, Rfl: PRN omega 9-pmb-imi-fish oil 250-350-1,000 mg Capsule, Take 1,000 mg [...] at [facility] Vascular in [place]: shaking Has [...] AM EST Office Visit Hematology/Oncology at [address] [phone] Cl Hess MD [facility] [place] [address] Yessi Renee APRN [address] [place] [address] DR HEMATOLOGY AND ONCOLOGY [place], [place] [address] 04/09/2024 10:00 AM EST Infusion Hematology Oncology at [address] [phone] 04/23/2024 9:30 AM EST Office Visit Hematology/Oncology at [address] [phone] Cl Hess MD [facility] [place] [address] Yessi Renee APRN [address] [place] [address] DR HEMATOLOGY AND ONCOLOGY [place] [phone] 04/23/2024 10:00 AM EST Infusion Hematology Oncology at [address] [phone] 05/18/2024 4:30 PM EDT TH Visit (TeleHealth) [place] [address] Malachi Rothman MD [facility] [place] [address] 09/24/2024 9:00 AM EDT Office Visit Radiation Oncology at [address] [phone] Ping Moore PA [facility] [place] [address] documented as of this encounter Results * Carotid Duplex, Bilateral (10/11/2023 9:30 AM EDT) VB Text Report Department: Vascular Surgery Lab Patient: [id number] (THA JARRETT) CPT: 05987 Referring Physician: BASIM BARR ?? Indications:Rig ht [...] arteries documented in this encounter Care Teams Human Capital Analyst Relationship Specialty Start Date End Date Aol Carey DO [address] [place] [address] [place] [address] PCP - General Internal Medicine 08/31/20 07/03/23 documented as of this encounter
--- OUTSIDE RECORDS SUMMARY | 2024-03-26 10:37 | XMS_ITS | Encounter Summary ---
Author Organization [facility] [place] [address] Care Team Providers Care Psychology Department Chair Name Role Phone Alo Carey DO Primary Care Provider [phone] Encounter Details Date Type Department Care Team (Late st Contact Info) Description 06/27/2023 External [place] [phone] Provider, Scanning Social History Tobacco Use Types [...] AM EST Office Visit Hematology/Oncology at [address] [phone] Cl Hess MD [facility] [place] [address] Yessi Renee LAST DIPPER [address] [place] [address] DR [place]OLOGY [place] [address] 04/09/2024 10:00 AM EST Infusion Hematology Oncology at [address] [phone] 04/23/2024 9:30 AM EST Office Visit Hematology/Oncology at [address] [phone] Cl Hess MD [facility] [place] [address] Yessi Renee APRN [address] [place] [address] DR HEMATOLOGY AND ONCOLOGY [place], [place] [address] 04/23/2024 10:00 AM EST Infusion Hematology Oncology at [address] [phone] 05/18/2024 4:30 PM EDT TH Visit (TeleHealth) [place] [address] Malachi Rothman MD [facility] [place] [address] 09/24/2024 9:00 AM EDT Office Visit Radiation Oncology at [address] [phone] Ping Moore PA [facility] DR HEMATOLOGY [place] [address] documented as of this encounter Visit Diagnoses Not on filedocumented in this encounter Care Teams Psychology Department Chair Relationship Specialty Start Date End Date Alo Carey DO [address] [place] [address] [place] [phone] PCP - General Internal Medicine 08/31/20 07/03/23 documented as of this encounter
--- OUTSIDE RECORDS SUMMARY | 2024-03-26 10:37 | XMS_ITS | Encounter Summary ---
[place] [address] Care Team Providers Care Automation Qtp Tester Name Role Phone Alo Carey DO Primary Care Provider [phone] Reason for Visit * Reason Comments Genetic Evaluation * Consultation (Urgent) - Closed Specialty Diagnoses / Procedures Referred By Marques livingston Referred To Contact Genetics Diagnoses Malignant neoplasm of head of pancreas Cl Hess MD [facility] [place] [address] [facility] Hem Onc [address] [place] [address] Referral ID Status Reason Start Date Expiration Date V isits Requested Visits Authorized [id number] Closed Consult, Test & Treat 06/06/2023 06/05/2024 1 1 Encounter Details Date Type Department Care Team (Late st Contact Info) Description 06/13/2023 11:00 AM EDT TH Visit (TeleHealth) Hematology [place] [address] Real Cardenas V, [facility] Hematology/[place] [address] Malignant neoplasm of head of pancreas; Malignant [...] in a chcf (including now)? No 06/04/2023 Sex and Gender [...] for neoadjuvant chemotherapy to be done in [facility]. Wero was previously diagnosed with prostate cancer in 2020, with biopsy done by Dr. Mayo in [place], [place] showing emilee 3+3 in 2 of [...] history and genetic testing while in in [place], but from our conversation and review of available records it does not appear that germline genetic testing has been completed. Family History of Cancer Problem Relation Age of Onset Liver Cancer Mother Brain Cancer Sister Stomach Cancer Brother Melanoma Brother Uterine Cancer Maternal Grandmother Lung Cancer Maternal Grandfather Lung Cancer Maternal Aunt 36 heavy smoker Maternal ethnic background is [place]. Paternal ethnic background is [place]. There is no known Ashkenazi Roman Catholic ancestry. Genetic risk assessment Based on personal [...] at [email or web address]. Wero opted for testing with [employer]' CancerNext-Expanded +RNAinsight Panel, a next generation sequencing panel that simultaneously analyzes 71 genes, including BRCA1, BRCA2, MLH1, MSH2, MSH6, PMS2, and EPCAM that contribute to increased risk for cancer. Wero was verbally consented and will be sent consent forms via [employer] to review, sign, and return. Amy will plan on assisting Wero with reading and signing these consents. Orders for the blood draw will be placed after signed consents are received. His blood sample will be drawn in ST once he has started infusions and sent [facility]. Weor will be notified by text and/or email once [facility] completes their benefits investigation if his estimated out of pocket cost is over $100. At that time, if Wero is concerned about the estimated test cost he will have the option to contact [facility] directly and either apply for [facility]'s patient assistance program to try and reduce [...] AM EST Office Visit Hematology/Oncology at [address] [phone] Cl Hess MD [facility] [place] [address] [address] HEMATOLOGY [place] [address] 04/09/2024 10:00 AM EST Infusion Hematology Oncology at [address] [phone] 04/23/2024 9:30 AM EST Office Visit Hematology/Oncology at [address] [phone] Cl Hess MD [facility] [place] [address] [address] HEMATOLOGY [place] [address] 04/23/2024 10:00 AM EST Infusion Hematology Oncology at [address] [phone] 05/18/2024 4:30 PM EDT TH Visit (TeleHealth) [place] [address] Malachi Rothman MD [facility] [place] [address] 09/24/2024 9:00 AM EDT Office Visit Radiation Oncology at [address] [phone] Ping Moore PA [facility] DR HEMATOLOGY [place] [address] Scheduled Referrals Name Type Priority Associated Diagnoses [...] intestine documented in this encounter Care Teams Automation Qtp Tester Relationship Specialty Start Date End Date Alo Carey DO [address] [place] [address] [place] [address] PCP - General Internal Medicine 08/31/20 07/03/23 documented as of this encounter
--- OUTSIDE RECORDS SUMMARY | 2024-03-26 10:37 | XMS_ITS | Encounter Summary ---
Author Organization [facility] [place] [address] Care Team Providers Care Coding Team Lead Name Role Phone Alo Carey Primary Care Provider [phone] Encounter Details Date Type Department Care Team (Late st Contact Info) Description 05/27/2023 Ancillary Procedure Radiology Library at [facility] [place] [id number] Cl Hess MD [facility] [place] [address] Social History Tobacco Use Types Packs/Day Years [...] AM EST Office Visit Hematology/Oncology at [address] [phone] Cl Hess MD [facility] [place] [address] [address] HEMATOLOGY AND ONCOLOGY [place], [place] [phone] 04/09/2024 10:00 AM EST Infusion Hematology Oncology at [address] [phone] 04/23/2024 9:30 AM EST Office Visit Hematology/Oncology at [address] [phone] Cl Hess MD [facility] [place] [address] [address] HEMATOLOGY AND ONCOLOGY [place], [place] [address] 04/23/2024 10:00 AM EST Infusion Hematology Oncology at [address] [phone] 05/18/2024 4:30 PM EDT TH Visit (TeleHealth) [place] [address] Malachi Rothman MD [facility] [place] [address] 09/24/2024 9:00 AM EDT Office Visit Radiation Oncology at [address] [phone] Ping Moore PA [facility] HEMATOLOGY [place] [address] documented as of this encounter Procedures Procedure Name Priority Date/Time Associated Diagnosis Comments FILM LIBRARY STORAGE ONLY NM PET/CT Routine 05/27/2023 12:00 AM EDT documented in this encounter Results * Film Library- Storage Only NM Pet / CT (05/27/2023 12:00 AM EDT) Narrative [facility] - 06/17/2023 8:57 AM EDT This exam is auto-finalizing. It's purpose is for storage only. Cl Hess MD IMG FILM LIBRARY ORD ERABLES [place], [place] documented in this encounter Visit Diagnoses Not on filedocumented in this encounter Care Teams Coding Team Lead Relationship Specialty Start Date End Date Alo Carey DO [address] [place] [address] [place] [address] PCP - General Internal Medicine 08/31/20 07/03/23 documented as of this encounter
--- OUTSIDE RECORDS SUMMARY | 2024-03-26 10:37 | XMS_ITS | Encounter Summary ---
[place] [address] Care Team Providers Care House Visitor Name Role Phone Cherry Alo Lon RUTHERFORD Primary Care Provider [phone] Reason for Referral * Diagnostic Test (Routine) - Closed Specialty Diagnoses / Procedures Referred By Contac t Referred To Contact Cardiology Diagnoses Essential hypertension Atherosclerosis 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 pectoris Procedures Mobile Echo Presley Parrish MD [address] [place] [address] [facility] [place] [address] Referral ID Status Reason Start Date Expiration Date V isits Requested Visits Authorized [id number] Closed Specialty Service Requested 06/19/2023 06/18/2024 1 1 Reason for Visit * Diagnostic Test (Routine) - Closed Specialty Diagnoses / Procedures Referred By Contac t Referred To Contact Cardiology Diagnoses Essential hypertension Atherosclerosis 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 pectoris Procedures Mobile Echo Presley Parrish MD [address] [place] [address] [facility] [place] [address] Referral ID Status Reason Start Date Expiration Date V isits Requested Visits Authorized [id number] Closed Specialty Service Requested 06/19/2023 06/18/2024 1 1 Encounter Details Date Type Department Care Team (Latest Contact Info) Description 06/19/2023 12:29 PM EDT - 06/19/2023 4:30 PM EDT Hospital Encounter [place] [address] Presley Parrish MD [address] [place], [place] [phone] Essential hypertension; Atherosclerosis 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 pectoris Discharge Disposition: Home Social History Tobacco Use Types Packs/Day Years Used Date Smoking Tobacco: Former Cigarettes 3 1992 Smokeless Tobacco: Never Alcohol Use Standard Drinks/Week Comments Yes 7 (1 standard drink = 0.6 oz pur e alcohol) [facility] Utilities Answer Date Recorded In the past 12 months has e [employer], gas, oil, or water [employer] threatened to shut off services in your [...] mg by mouth as needed. 05/20/2023 omega 0-gbw-jxh-fish oil 250-350-1,000 mg Capsule Take 1,000 mg [...] (E.C.) Take 81 mg by mouth daily. xphvnl-pkmxnqne-qeno ase () 24,000-76,000 -120,000 unit capsuleIndications:M alignant [...] AM EST Office Visit Hematology/Oncology at [address] [phone] Cl Hess MD [facility] [place] [address] Yessi Renee [address] HEMATOLOGY AND ONCOLOGY [place], [place] [phone] 04/09/2024 10:00 AM EST Infusion Hematology Oncology at [address] [phone] 04/23/2024 9:30 AM EST Office Visit Hematology/Oncology at [address] [phone] Cl Hess MD [facility] [place] [address] Yessi Renee [address] [place] [address] 04/23/2024 10:00 AM EST Infusion Hematology Oncology at [address] [phone] 05/18/2024 4:30 PM EDT TH Visit (TeleHealth) [place] [address] Malachi Rothman MD [facility] [place] [address] 09/24/2024 9:00 AM EDT Office Visit Radiation Oncology at [address] [phone] Ping Moore PA [facility] DR [place] [address] documented as of this encounter Procedures Procedure Name Priority Date/Time Associated Diagnosis Comments ECHO COMPLETE Routine 06/19/2023 12:31 PM EDT Essential hypertension Atherosclerosis 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 pectoris documented in this encounter Results * ECHO COMPLETE (06/19/2023 12:31 PM EDT) Anatomical Region Laterality Modality Other 06/19/2023 10:1 3 AM EDT Narrative 06/19/2023 5:32 PM EDT [address] [place] [address] ? Echocardiogram Report Name: THA SADLER ?Study Date: 06/19/2023 10:13 AMBP: 110/58 mmHg ? Patient Location: : 1950 ? Height: 180 cm ? Account: [id number] Age: 73 yrs ? Weight: 92 kg Gender: Male ?BSA: 2.1 m2 Ordering Physician: PRESLEY PARRISH Referring Physician: PRESLEY PARRISH Performed By: Denita Perez RDCS Reason For Study: Hypertension. Atherosclerotic heart disease of [place] coronary artery without angina pectoris. Exam Location: [facility]. Interpretation Summary Left ventricle is of normal size with mild increased wall thickness. Left ventricular systolic function is normal. LV ejection fraction is estimated visually at 65-70%. No segmental wall motion abnormalities. Normal right ventricle. No significant valvular abnormalities. No prior studies available for comparison. Procedure Complete-[id number]. Satisfactory quality. Regular rhythm. Left Ventricle Left [...] Note Rafael Collado MD - 06/19/2023 1 [place] [address] Echocardiogram Report Name: THA SADLER Study Date: 06/19/2023 10:13 AMBP:110/58 mmHg Patient Location: : 1950 Height: 180 cmAccount: [id number] Age: 73 yrs Weight: 92 kg Gender: Male BSA: 2.1 m2 Ordering Physician: PRESLEY PARRISH Referring Physician: PRESLEY PARRISH Performed By: Denita Perez RDCS Reason For Study: Hypertension. Atherosclerotic heart disease of [place] coronary artery without angina pectoris. Exam Location: [facility]. Interpretation Summary Left ventricle is of normal size with mild increased wall thickness.Left ventricular systolic function is normal. LV ejection fraction isestimated visually at 65-70%. No segmental wall motion abnormalities. Normal right ventricle. No significant valvular abnormalities. No prior studies available for comparison. Procedure Complete-[id number]. Satisfactory quality. Regular rhythm. 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
--- OUTSIDE RECORDS SUMMARY | 2024-03-26 10:37 | XMS_ITS | Encounter Summary ---
[place] [address] Care Team Providers Care Retail Department Reset Name Role Phone YungAlo santiago Primary Care Provider [phone] Reason for Visit * Reason Onset Date Comments Other 06/11/2023 outreach Encounter Details Date Type Department Care Team (Late st Contact Info) Description 06/11/2023 Telephone Hematology/Oncology at [address] [phone] Kaelyn Huitron, DRY TALC RACKER OFFICE OF CARE MANAGEMENT Other (outreach) Social History Tobacco Use Types Packs/Day Years Used Date Smoking Tobacco: Former Cigarettes 4 30 1 3 - 1992 Smokeless Tobacco: Never Alcohol Use Standard Drinks/Week Comments Yes 7 (1 standard drink = 0.6 oz pur e alcohol) [facility] Utilities Answer Date Recorded In the past 12 months has [employer] electric, gas, oil, or water company threatened [...] to introduce myself and role of social welfare research worker to assess/address barriers to getting to [...] primary supports. He has a daughter in [facility] who he has no contact with. He has 2 step childrenin [place]. Living Situation/Daily Activities/Transportation: Phip informed DRY TALC RACKER he is blind. He lives alone in [...] is concernedabout the cost of Cre[employer] and DRY TALC RACKER asked Lupe Velasquez RD to reach out [...] He is reaching out to the [employer]. DRY TALC RACKER asked RD to reach out to [facility]. Referrals:[facility] indicate it is unclear the plan for treatment at this time as his provider is waiting for some additional test results. Will reassess his needs once his treatment plan is clarified. Social Work Interventions: Brief assessment Supportive Counseling Advance care planning Community Resource Plan: Informed pt of DRY TALC RACKER availability and contact information. Will follow to assess/address psychosocial needs. MAXI Arteaga, COATER SLATE, OSW-C Product Support Technician [facility] documented in this encounter Plan of Treatment Upcoming Encounters Date Type Department Care Team (Late st Contact Info) Description 04/09/2024 9:30 AM EST Office Visit Hematology/Oncology at [address] [phone] Cl Hess MD [facility] [place] [address] [address] HEMATOLOGY AND ONCOLOGY [place], [place] [address] 04/09/2024 10:00 AM EST Infusion Hematology Oncology at [address] [phone] 04/23/2024 9:30 AM EST Office Visit Hematology/Oncology at [address] [phone] Cl Hess MD [facility] [place] [address] [address] HEMATOLOGY AND ONCOLOGY [place], [place] [phone] 04/23/2024 10:00 AM EST Infusion Hematology Oncology at [address] [phone] 05/18/2024 4:30 PM EDT TH Visit (TeleHealth) [place] [address] Malachi Rothman MD [facility] [place] [address] 09/24/2024 9:00 AM EDT Office Visit Radiation Oncology at [address] [phone] Ping Moore PA [facility] [place] [address] documented as of this encounter Visit Diagnoses Not on filedocumented in this encounter Care Teams Retail Department Reset Relationship Specialty Start Date End Date Alo Carey DO [address] [place] [address] [place] [phone] PCP - General Internal Medicine 08/31/20 07/03/23 documented as of this encounter
--- OUTSIDE RECORDS SUMMARY | 2024-03-26 10:37 | XMS_ITS | Encounter Summary ---
[place] [address] Care Team Providers Care Lumber Sorter Machine Name Role Phone Alo Carey Primary Care Provider [phone] Encounter Details Date Type Department Care Team [...] Recorded In the past 12 months has [employer] electric, gas, oil, or water company threatened [...] AM EST Office Visit Hematology/Oncology at [address] [phone] Cl Hess MD [facility] [place] [address] Yessi Renee APRN [address] [place] [address] DR [place] [address] 04/09/2024 10:00 AM EST Infusion Hematology Oncology at [address] [phone] 04/23/2024 9:30 AM EST Office Visit Hematology/Oncology at [address] [phone] Cl Hess MD [facility] [place] [address] Yessi Renee APRN [address] [place] [address] DR HEMATOLOGY AND ONCOLOGY [place], [place] [address] 04/23/2024 10:00 AM EST Infusion Hematology Oncology at [address] [phone] 05/18/2024 4:30 PM EDT TH Visit (TeleHealth) [place] [address] Malachi Rothman MD [facility] [place] [address] 09/24/2024 9:00 AM EDT Office Visit Radiation Oncology at [address] [phone] Ping Moore PA [facility] DR HEMATOLOGY [place] [address] documented as of this encounter Visit Diagnoses Not on filedocumented in this encounter Care Teams Lumber Sorter Machine Relationship Specialty Start Date End Date Alo Carey DO [address] [place] [address] [place] [address] PCP - General Internal Medicine 08/31/20 07/03/23 documented as of this encounter
--- OUTSIDE RECORDS SUMMARY | 2024-03-26 10:37 | XMS_ITS | Encounter Summary ---
[place] [address] Care Team Providers Care Seafood Service Team Member Name Role Phone Alo Carey Primary Care Provider [phone] Encounter Details Date Type Department Care Team (Late st Contact Info) Description 06/23/2023 Orders Only [place]ematology [place] [address] Real Cardenas V, [facility] Dr Hematology/[place] [address] Malignant neoplasm of head of pancreas; Malignant neoplasm of prostate Social History Tobacco Use Types Packs/Day Years Used Date Smoking Tobacco: Former Cigarettes 4 30 1 3 - 1992 Smokeless Tobacco: Never Alcohol Use Standard Drinks/Week Comments Yes 7 (1 standard drink = 0.6 oz pur e alcohol) [facility] Utilities Answer Date Recorded In the past 12 months has [employer] electric, gas, oil, or water company threatened [...] AM EST Office Visit Hematology/Oncology at [address] [phone] Cl Hess MD [facility] [place] [address] Yessi Renee APRN [address] [place] [address] DR HEMATOLOGY AND ONCOLOGY [place], [place] [phone] 04/09/2024 10:00 AM EST Infusion Hematology Oncology at [address] [phone] 04/23/2024 9:30 AM EST Office Visit Hematology/Oncology at [address] [phone] Cl Hess MD [facility] [place] [address] Yessi Renee APRN [address] [place] [address] [place] [address] 04/23/2024 10:00 AM EST Infusion Hematology Oncology at [address] [phone] 05/18/2024 4:30 PM EDT TH Visit (TeleHealth) [place] [address] Malachi Rothman MD [facility] [place] [address] 09/24/2024 9:00 AM EDT Office Visit Radiation Oncology at [address] [phone] Ping Moore PA [facility] [place] [address] documented as of this encounter Visit Diagnoses Diagnosis Malignant neoplasm of head of pancreas Malignant neoplasm of prostate documented in this encounter Care Teams Seafood Service Team Member Relationship Specialty Start Date End Date Alo Carey DO [address] [place] [address] [place] [address] PCP - General Internal Medicine 08/31/20 07/03/23 documented as of this encounter
--- OUTSIDE RECORDS SUMMARY | 2024-03-26 10:37 | XMS_ITS | Encounter Summary ---
Author Organization [facility] [place] [address] Care Team Providers Care Radiologist Physician Name Role Phone YungAlo santiago Primary Care Provider [phone] Reason for Referral * Consultation (Routine) - Closed Specialty Diagnoses / Procedures Referred By Marques livingston Referred To Contact General Surgery Diagnoses Malignant neoplasm of head of pancreas Cl Hess MD [facility] [place] [address] Charu Balbeuna MD [facility] [place] [address] Referral ID Status Reason Start Date Expiration Date V isits Requested Visits Authorized [id number] Closed Consult, Test & Treat 06/06/2023 06/05/2024 1 1 * Consultation (Urgent) - Closed Specialty Diagnoses / Procedures Referred By Marques livingston Referred To Contact Genetics Diagnoses Malignant neoplasm of head of pancreas Cl Hess MD [facility] [place] [address] [facility] Hem Onc [address] [place] [address] Referral ID Status Reason Start Date Expiration Date V isits Requested Visits Authorized [id number] Closed Consult, Test & Treat 06/06/2023 06/05/2024 1 1 Reason for Visit * Consultation (Routine) - Closed Specialty Diagnoses / Procedures Referred By Marques livingston Referred To Contact Diagnoses Malignant neoplasm of head of pancreas Cameron Blackwell, [address] [address] Cl Hess MD [address] [place] [address] [place] [address] Referral ID Status Reason Start Date Expiration Date V isits Requested Visits Authorized [id number] Closed Consult, Test & Treat 05/21/2023 05/20/2024 1 1 Encounter Details Date Type Department Care Team (Latest Contact Info) Description 06/07/2023 3:00 PM EDT Office Visit Hematology/Oncology at [address] [phone] Cl Hess MD [facility] [place] [address] Malignant neoplasm of head of pancreas; Pancreatic [...] periduodenal or perilesional adenopathy was appreciated Impression: [id number] pancreas head mass lesion with biliary and [...] a couple of occasions. 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 While in [facility], he presented with chest pain and [...] have requested the pathology for review at [facility] and have also requested that [...] in the absence of cold, hypersensitivity reactions, angina/OR and others. He was given an informational handout regarding mFolfirinox. Blood will be drawn for PGX to be sure he doesn't have variant in DPYD or UGT1A1 that would put himat high risk of severe fluoropyrimidine related toxicity. I will ask that this be done when he is seen at [facility], along with baseline labs. This [...] will be followed also by our clinical sales office coordinator, Lupe Velasquez. Plan: - Get outside images: CT chest, CT a/p and pet scan - Obtain outside pathology for review at [facility] - Present at [facility] on 06/18/23 - F/u after Tumor Board discussion - Referral to Pancreatobiliary surgeon at [facility] (Dr. Balbuena or Dr. Espinosa) - Labs at [facility], same day as surgery appt - to include PGX testing - Referral to our Clinical Contract NegotiatorLupe - Referral to Familial cancer Program - f/u in [facility] for neoadjuvant therapy * Kristi Alvarado RN - 06/07/2023 3:00 PM EDT [facility] Patient Medical Oncology Note SOCIAL ASSESSMENT: See [facility] social assessment information entered. 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 Abbi Reynolds at [facility] Rx insurance? [ ] yes [ [...] AM EST Office Visit Hematology/Oncology at [address] [phone] Cl Hess MD [facility] [place] [address] [address] [place] [address] 04/09/2024 10:00 AM EST Infusion Hematology Oncology at [address] [phone] 04/23/2024 9:30 AM EST Office Visit Hematology/Oncology at [address] [phone] Cl Hess MD [facility] [place] [address] [address] [place] [address] 04/23/2024 10:00 AM EST Infusion Hematology Oncology at [address] [phone] 05/18/2024 4:30 PM EDT TH Visit (TeleHealth) [place] [address] Malachi Rothman MD [facility] [place] [address] 09/24/2024 9:00 AM EDT Office Visit Radiation Oncology at [address] [phone] Ping Moore PA [facility] HEMATOLOGY [place] [address] Scheduled Referrals Name Type Priority Associated Diagnoses [...] pancreas documented in this encounter Care Teams Radiologist Physician Relationship Specialty Start Date End Date Alo Carey DO [address] [place] [address] [place] [address] PCP - General Internal Medicine 08/31/20 07/03/23 documented as of this encounter
--- OUTSIDE RECORDS SUMMARY | 2024-03-26 10:37 | XMS_ITS | Encounter Summary ---
Author Organization [facility] [place] [address] Care Team Providers Care Filing Writer Name Role Phone Alo Carey Primary Care Provider [phone] Encounter Details Date Type Department Care Team (Late st Contact Info) Description 04/18/2023 Ancillary Procedure Radiology Library at [place] [address] Cl Hess MD [facility] [place] [address] Social History Tobacco Use Types Packs/Day Years [...] AM EST Office Visit Hematology/Oncology at [address] [phone] Cl Hess MD [facility] [place] [address] [address] HEMATOLOGY AND ONCOLOGY [place], [place] [phone] 04/09/2024 10:00 AM EST Infusion Hematology Oncology at [address] [phone] 04/23/2024 9:30 AM EST Office Visit Hematology/Oncology at [address] [phone] Cl Hess MD [facility] [place] [address] [address] HEMATOLOGY AND ONCOLOGY [place], [place] [address] 04/23/2024 10:00 AM EST Infusion Hematology Oncology at [address] [phone] 05/18/2024 4:30 PM EDT TH Visit (TeleHealth) [place] [address] Malachi Rothman MD [facility] [place] [address] 09/24/2024 9:00 AM EDT Office Visit Radiation Oncology at [address] [phone] Ping Moore PA [facility] [place] [address] documented as of this encounter Procedures Procedure Name Priority Date/Time Associated Diagnosis Comments FILM LIBRARY STORAGE ONLY CT ABDOMEN AND PELVIS Routine 04/18/2023 12:00 AM EST documented in this encounter Results * Film Library- Storage Only CT Abdomen & Pelvis (04/18/2023 12:00 AM EST) Narrative [facility] - 06/17/2023 12:12 PM EDT This exam is auto-finalizing. It's purpose is for storage only. Cl Hess MD IMG FILM LIBRARY ORD ERABLES Performing Organization Address City/State/[facility] Co de Phone Number [place], [place] documented in this encounter Visit Diagnoses Not on filedocumented in this encounter Care Teams Filing Writer Relationship Specialty Start Date End Date Alo Carey DO [address] [place] [address] [place] [address] PCP - General Internal Medicine 08/31/20 07/03/23 documented as of this encounter
--- OUTSIDE RECORDS SUMMARY | 2024-03-26 10:38 | XMS_ITS | Encounter Summary ---
[place] [address] Care Team Providers Care Human Resources Intern Name Role Phone Alo Carey Primary Care Provider [phone] Encounter Details Date Type Department Care Team (Late Contact Info) Description 09/05/2021 12:45 PM EDT Notes Only Radiation Oncology at [address] [phone] Bigg Peters MD [address] [place] [address] [place] [address] Social History Tobacco Use Types [...] AM EST Office Visit Hematology/Oncology at [address] [phone] [facility] [place] [address] HEMATOLOGY AND ONCOLOGY [place], [place] [phone] 04/09/2024 10:00 AM EST Infusion Hematology Oncology at [address] [phone] 04/23/2024 9:30 AM EST Office Visit Hematology/Oncology at [address] [phone] [facility] [place] [address] HEMATOLOGY AND ONCOLOGY [place], [place] [phone] 04/23/2024 10:00 AM EST Infusion Hematology Oncology at [address] [phone] 05/18/2024 4:30 PM EDT TH Visit (TeleHealth) [place] [address] [facility] [place] [address] 09/24/2024 9:00 AM EDT Office Visit Radiation Oncology at [address] [phone] [facility] [place] [address] documented as of this encounter Visit Diagnoses Not on filedocumented in this encounter Care Teams Human Resources Intern Relationship Specialty Start Date End Date Alo Carey DO [address] [place] [address] [place] [address] PCP - General Internal Medicine 08/31/20 07/03/23 documented as of this encounter
--- OUTSIDE RECORDS SUMMARY | 2024-03-26 10:38 | XMS_ITS | Encounter Summary ---
[place] [address] Care Team Providers Care Supervisor Brooder Farm Name Role Phone Alo Carey Primary Care Provider [phone] Encounter Details Date Type Department Care Team (Late st Contact Info) Description 08/31/2021 1:00 PM EDT Office Visit Radiation Oncology at [address] [phone] Bigg Peters MD [address] [place] [address] DR [place] [address] Malignant neoplasm of prostate Social [...] from the original note were not included. [facility] Medicine Radiation Oncology Radiation Oncology [...] placed in this encounter. ??? National Cancer [facility] (NCI) Comprehensive Cancer Center ??? [employer] Commission on Cancer (ACS Joanna) Accredited Cancer Program ??? [employer] (ACR) Accredited Radiation Oncology Program documented in this encounter Plan of Treatment Upcoming Encounters Date Type Department Care Team (Late st Contact Info) Description 04/09/2024 9:30 AM EST Office Visit Hematology/Oncology at [address] [phone] Cl Hess MD [facility] [place] [address] [address] HEMATOLOGY AND ONCOLOGY [place], [place] [phone] 04/09/2024 10:00 AM EST Infusion Hematology Oncology at [address] [phone] 04/23/2024 9:30 AM EST Office Visit Hematology/Oncology at [address] [phone] Cl Hess MD [facility] [place] [address] Yessi Renee [address] HEMATOLOGY [place] [address] 04/23/2024 10:00 AM EST Infusion Hematology Oncology at [address] [phone] 05/18/2024 4:30 PM EDT TH Visit (TeleHealth) [place] [address] Malachi Rothman MD [facility] [place] [address] 09/24/2024 9:00 AM EDT Office Visit Radiation Oncology at [address] [phone] Ping Moore PA [facility] DR HEMATOLOGY [place] [address] documented as of this encounter Visit Diagnoses Diagnosis Malignant neoplasm of prostate documented in this encounter Care Teams Supervisor [employer]oder Farm Relationship Specialty Start Date End Date Alo Caery DO [address] [place] [address] [place] [phone] PCP - General Internal Medicine 08/31/20 07/03/23 documented as of this encounter
--- OUTSIDE RECORDS SUMMARY | 2024-03-26 10:38 | XMS_ITS | Encounter Summary ---
[place] [address] Care Team Providers Care Hand Former Helper Name Role Phone Alo Carey DO Primary Care Provider [phone] Reason for Visit * Auth/Cert Specialty Diagnoses / Procedures Referred By Marques livingston Referred To Contact Diagnoses S/P total hip arthroplasty right hip OA Procedures PRO TOTAL HIP ARTHROPLASTY TOTAL HIP ARTHROPLASTY - POSTERIOR (WRVU 20.72) MODIFIER ACTIS HIP STEM DEPUY MODIFIER PINNACLE ACETABULUM DEPUY Ismael Wu MD [facility] ORTHOP[place]EDIC [place] [address] [facility] Referral ID Status Reason Start Date Expiration Date Visits Re quested Visits Authorized [id number] 1 1 Encounter Details Date Type Department Care Team (Late st Contact Info) Description 11/17/2021 1:28 PM EDT Anesthesia Event [place] [phone] Zeynep Mcallister MD [facility] AN[place]Y [place] [address] Eros Foss MD [facility] ANESTHESIOLOGY [place] [address] Anesthesia Record Procedure Summary Procedure Name Responsible [...] 1307; metacarpal vein (top of hand), left; xbqz-[id number] catheter system; Anatomical Landmarks; 20 gauge, 1 [...] Procedure Summary Date: 11/17/21 Room / Location: [facility] OR [address] [place] [address] MAIN OR Anesthesia Start: 1328 Anesthesia Stop: [...] Anesthesiologist: Brie Laguna MD; Zeynep Mcallister MD Technology Engineer: Eros Foss MD Vitals Value Taken Time BP 162/71 11/17/21 1645 Temp Pulse 42 11/17/21 1649 Resp 12 11/17/21 1649 SpO2 99 % 11/17/21 1649 Pain Level Vitals shown include unvalidated device data. Patient Location: PACU/[facility] Level of Consciousness: Awake and [...] without issue. VSS. Full report given to FUNERAL ASSISTANT. * Anesthesia Procedure Notes - Eros Foss [...] PM Patient Location: Block Room Baseline Information (ZWO-eedy-hhtulbej entry for database use): Chronic Pain: Yes [...] - 11/17/2021 1:28:00 PM Events/Notes Events: None Resident/TECHNICAL COORDINATOR: Eros Foss MD Second Resident/TECHNICAL COORDINATOR: SRNA: Fellow: Attending Physician: Brie Laguna MD [...] 9.19) performed by Basim Barr MD at [facility] MAIN OR ??? PRO LASER VAPORIZATION SURGERY PROSTATE, COMPLETE Midline 02/02/2021 CYSTO, LASER TURP (WRVU 12.15) performed by Cayetano Engle MD at [facility] MAIN OR ??? PRO PLACE TRANSCATHETER STENT, CCA W EMBOLIC PROECT Right 07/14/2021 @TRANSCATH INTRAVASCULAR STENT,CAROTID,PERC,W\EMBOLIC PROT. (WRVU 18) performed by Basim Barr MD at [facility] MAIN OR ??? PRO TOTAL HIP ARTHROPLASTY Left 10/10/2020 TOTAL HIP ARTHROPLASTY - POSTERIOR (WRVU 20.72) performed by Ismael Wu MD at [facility] MAIN OR Social History Tobacco [...] vascular procedure at [facility] in [place]: shaking Has tolerated MRI and [...] at [facility] in [place]: shakingHas tolerated MRI and CT contrast. NPO [...] AM EST Office Visit Hematology/Oncology at [address] [phone] Cl Hess MD [facility] [place] [address] Yessi Renee APRN [address] [place] [address] DR HEMATOLOGY AND ONCOLOGY [place], [place] [address] 04/09/2024 10:00 AM EST Infusion Hematology Oncology at [address] [phone] 04/23/2024 9:30 AM EST Office Visit Hematology/Oncology at [address] [phone] Cl Hess MD [facility] [place] [address] Yessi Renee APRN [address] [place] [address] DR HEMATOLOGY [place] [address] 04/23/2024 10:00 AM EST Infusion Hematology Oncology at [address] [phone] 05/18/2024 4:30 PM EDT TH Visit (TeleHealth) [place] [address] Malachi Rothman MD [facility] DR RAD[place] [address] 09/24/2024 9:00 AM EDT Office Visit Radiation Oncology at [address] [phone] Ping Moore PA [facility] DR HEMATOLOGY [place] [address] documented as of this encounter Procedures Procedure [...] PM Patient Location: Block Room Baseline Information (GCN-[id number]-[id number] entry for database use): Chronic Pain: ??Yes [...] - 11/17/2021 1:28:00 PM Events/Notes Events: ??None Resident/TECHNICAL COORDINATOR: ? Eros Foss MD Second Resident/TECHNICAL COORDINATOR: SRNA: ? Fellow: ? Attending Physician: ? Bire Laguna MD ~~~~~~~~~~~~~~~~~~~~~~~~~~~~~~~~~~~~~~~~~~~~~~~~~~~~~~~~~~~~ Brie Laguna MD SIGNALING PROJECT ENGINEER [facility] documented in this encounter Visit Diagnoses Not [...] mg documented in this encounter Care Teams Hand Former Helper Relationship Specialty Start Date End Date Alo Carey DO [address] [place] [address] [place] [phone] PCP - General Internal Medicine 08/31/20 07/03/23 documented as of this encounter
--- OUTSIDE RECORDS SUMMARY | 2024-03-26 10:38 | XMS_ITS | Encounter Summary ---
[place] [address] Care Team Providers Care Industrial Machine Operator Name Role Phone YungAlo santiago Primary Care Provider [phone] Reason for Visit * Reason Comments Medication Refill Encounter Details Date Type Department Care Team (Late Contact Info) Description 05/30/2022 Refill Radiation Oncology at [address] [phone] Bigg Peters MD [address] [place] [address] DR [place] [address] Malignant neoplasm of prostate Social [...] AM EST Office Visit Hematology/Oncology at [address] [phone] Cl Hess MD [facility] [place] [address] [address] HEMATOLOGY AND ONCOLOGY [place], [place] [phone] 04/09/2024 10:00 AM EST Infusion Hematology Oncology at [address] [phone] 04/23/2024 9:30 AM EST Office Visit Hematology/Oncology at [address] [phone] Cl Hess MD [facility] [place] [address] Yessi Renee, [address] HEMATOLOGY AND ONCOLOGY [place], [place] [phone] 04/23/2024 10:00 AM EST Infusion Hematology Oncology at [address] [phone] 05/18/2024 4:30 PM EDT TH Visit (TeleHealth) [place] [address] Malachi Rothman MD [facility] [place] [address] 09/24/2024 9:00 AM EDT Office Visit Radiation Oncology at [address] [phone] Ping Moore PA [facility] DR HEMATOLOGY [place] [address] documented as of this encounter Visit Diagnoses Diagnosis Malignant neoplasm of prostate documented in this encounter Care Teams Industrial Machine Operator Relationship Specialty Start Date End Date Alo Carey DO [address] [place] [address] [place] [phone] PCP - General Internal Medicine 08/31/20 07/03/23 documented as of this encounter
--- OUTSIDE RECORDS SUMMARY | 2024-03-26 10:38 | XMS_ITS | Encounter Summary ---
[place] [address] Care Team Providers Care Aoc Aadc Operations Staff Officer Name Role Phone Alo Carey Primary Care Provider [phone] Encounter Details Date Type Department Care Team (Late st Contact Info) Description 08/17/2021 1:00 PM EDT Office Visit Radiation Oncology at [address] [phone] Bigg Peters MD [address] [place] [address] [place] [address] Malignant neoplasm of prostate Social [...] from the original note were not included. [facility] Medicine Radiation Oncology Radiation Oncology On-treatment [...] placed in this encounter. ??? National Cancer Counselor (NCI) Comprehensive Cancer Center ??? [employer] Commission on Cancer (ACS Joanna) Accredited Cancer Program ??? [employer] (ACR) Accredited Radiation Oncology Program documented in this encounter Plan of Treatment Upcoming Encounters Date Type Department Care Team (Late st Contact Info) Description 04/09/2024 9:30 AM EST Office Visit Hematology/Oncology at [address] [phone] Cl Hess MD [facility] [place] [address] Yessi Renee APRN [address] [place] [address] DR HEMATOLOGY AND ONCOLOGY [place], [place] [phone] 04/09/2024 10:00 AM EST Infusion Hematology Oncology at [address] [phone] 04/23/2024 9:30 AM EST Office Visit Hematology/Oncology at [address] [phone] Cl Hess MD [facility] [place] [address] Yessi Renee APRN [address] [place] [address] DR HEMATOLOGY AND ONCOLOGY [place], [place] [address] 04/23/2024 10:00 AM EST Infusion Hematology Oncology at [address] [phone] 05/18/2024 4:30 PM EDT TH Visit (TeleHealth) [place] [address] Malachi Rothman MD [facility] [place] [address] 09/24/2024 9:00 AM EDT Office Visit Radiation Oncology at [address] [phone] Ping Moore PA [facility] DR [place] [address] documented as of this encounter Visit Diagnoses Diagnosis Malignant neoplasm of prostate documented in this encounter Care Teams Aoc Aadc Operations Staff Officer Relationship Specialty Start Date End Date Alo Carey DO [address] [place] [address] [place] [address] PCP - General Internal Medicine 08/31/20 07/03/23 documented as of this encounter
--- OUTSIDE RECORDS SUMMARY | 2024-03-26 10:38 | XMS_ITS | Encounter Summary ---
[place] [address] Care Team Providers Care Gun Tester Name Role Phone YungAlo santiago Primary Care Provider [phone] Reason for Visit * Reason Comments Medication Refill Encounter Details Date Type Department Care Team (Late Contact Info) Description 12/22/2021 Refill Radiation Oncology at [address] [phone] Bigg Peters MD [address] [place] [address] [place] [address] Malignant neoplasm of prostate Social [...] AM EST Office Visit Hematology/Oncology at [address] [phone] Cl Hess MD [facility] [place] [address] HEMATOLOGY AND ONCOLOGY [place], [place] [phone] 04/09/2024 10:00 AM EST Infusion Hematology Oncology at [address] [phone] 04/23/2024 9:30 AM EST Office Visit Hematology/Oncology at [address] [phone] Cl Hess MD [facility] [place] [address] Yessi Renee, [address] HEMATOLOGY AND ONCOLOGY [place], [place] [phone] 04/23/2024 10:00 AM EST Infusion Hematology Oncology at [address] [phone] 05/18/2024 4:30 PM EDT TH Visit (TeleHealth) [place] [address] Malachi Rothman MD [facility] [place] [address] 09/24/2024 9:00 AM EDT Office Visit Radiation Oncology at [address] [phone] Ping Moore PA [facility] DR HEMATOLOGY [place] [address] documented as of this encounter Visit Diagnoses Diagnosis Malignant neoplasm of prostate documented in this encounter Care Teams Gun Tester Relationship Specialty Start Date End Date Alo Carey DO [address] [place] [address] [place] [phone] PCP - General Internal Medicine 08/31/20 07/03/23 documented as of this encounter
--- OUTSIDE RECORDS SUMMARY | 2024-03-26 10:38 | XMS_ITS | Encounter Summary ---
[place] [address] Care Team Providers Care Behavioral Medical Director Name Role Phone Alo Carey DO Primary Care Provider [phone] Reason for Visit * Auth/Cert Specialty Diagnoses / Procedures Referred By Marques livingston Referred To Contact Diagnoses S/P total hip arthroplasty right hip OA Procedures PRO TOTAL HIP ARTHROPLASTY TOTAL HIP ARTHROPLASTY - POSTERIOR (WRVU 20.72) MODIFIER ACTIS HIP STEM DEPUY MODIFIER PINNACLE ACETABULUM DEPUY Ismael Wu MD [facility] [place] [address] [facility] Referral ID Status Reason Start Date Expiration Date Visits Re quested Visits Authorized [id number] 1 1 Encounter Details Date Type Department Care Team (Late st Contact Info) Description 11/17/2021 1:00 PM EDT - 11/17/2021 4:45 PM EDT [place] [id number] Ismael Wu MD [facility] ORTHOPAEDIC SURGERY [place] [id number] TOTAL HIP ARTHROPLASTY - POSTERIOR (WRVU 19.6) [...] Wero Sadler Patient Age: 71 y.o. Language: Fijian Race: White Ethnicity: Not nor Admit date: 11/17/2021 Discharge date and time: 11/18/2021 Attending Physician: Ismael Wu MD Discharge Physician: Ismael Wu MD Follow-up Recommendations for Providers: See discharge instructions for additional details. Future Appointments Date Time Provider Department Center 12/22/2021 9:15 AM [facility] DX ROOM 3 Xray [facility] Rad 12/22/2021 10:00 AM Ismael Wu MD [facility] ORTH 3C [facility] Inpatient Provider Contact Information: Ismael Wu MD Orthopedics: [phone] After hours and weekends, call [facility] Client Account Manager, , and have the Orthopedic resident paged. [...] Split (High Dose) 11/21/2020 ??? Moderna Covid-19 (Pharmacy Technology Instructor 100mcg) Vaccine 05/20/2020, 06/21/2020, 01/01/2021 ??? Td, [...] concerns regarding this plan, please contact our salesforce specialist at [phone]. Your catheter will stay in until your [...] bowel movement. You can also take an smqh-kys-fenmlvi medication, Miralax if needed to combat constipation. [...] as much as possible. Call your doctor ([phone]) if you develop: 1. Fever greater than 100.5 2. Severe nausea or vomiting 3. Increasing pain that is not controlled by pain medications 4. Increasing redness, swelling, or drainage from incisions 5. Change in sensation FOLLOW-UP APPOINTMENTS: 1. You will have follow-up appointments at [facility] as indicated below in Future Appointment and Orders. 2. You will need to have x-rays prior to your follow-up appointment on 12/22. Please come to Radiology, desk 3T, 1 hour BEFORE that appointment for these x-rays. Future Appointments Date Time Provider Department Center 12/22/2021 9:15 AM [facility] DX ROOM 3 MH Xray [facility] Rad 12/22/2021 10:00 AM Ismael Wu MD [facility] ORTH [address] [place] [address] If you have questions or concerns: Saturday through Saturday, 8 AM - 5 PM, please call Dr. Ismael Wu MD's office at . If it is after 5 PM, the weekend, or holidays, please call and ask to speak with theOrthopedic resident on-call. General Instructions None Future Appointments and Orders Future Appointments and Orders Future Appointments Provider Department Dept Phone 12/22/2021 9:15 AM [facility] DX ROOM 3 XRay at [facility] Arrive at: [employer] [facility] [phone] Please go to [employer] [facility] ([facility]). 12/22/2021 10:00 AM Ismael Wu MD Orthopaedics at [facility] Arrive at: [employer] [facility] [phone] Future Orders Complete By Expires Referral to Home Health [REF34 Custom] As directed Process Instructions: If no progress note charted, please enter Clinical details in comments. Scheduling Instructions: Comments: Please evaluate Wero Sadler for admission to Home Health. [address] [facility] [phone] (home) Date of : 1950 Inpatient DOCUMENTATION FOR VNA SERVICES (INCLUDING THOSE PATIENTS WITH MEDICARE COVERAGE REQUIRING HOME VNA SERVICES AND/OR HOSPICE SERVICES) Wero Sadler Discharge to own home: [address] [facility] [phone] (home) Telephone Information: Community Facilitator's Name: Wero In discussion with the attending physician, it is certified that this patient is under their care and that they, or a nurse practitioner, clinical nurse specialist or physician's studio assistant who is working directly with them, [...] for services as follows: Home Health Agency: [facility] [address] [place] [phone] Home care orders for Total Hip Replacements: [...] this patient's PCP: Alo Carey DO [address] [place] [phone] All VNA agencies which cover the area of patient's residence have been reviewed, either verbally alberto writing, and patient/family have chosen the home health care agency as noted for home services. Questions: Disciplines Requested: Nursing Physical Therapy Occupational Therapy Primary Care Provider: Alo Carey DO [phone] Discharge References/Attachments None documented in this encounter [...] concerns regarding this plan, please contact our salesforce specialist at [phone]. Your catheter will stay in until your [...] bowel movement. You can also take an dubv-lcv-edolmvr medication, Miralax if needed to combat constipation. [...] as much as possible. Call your doctor ([phone]) if you develop: Fever greater than 100.5 Severe nausea or vomiting Increasing pain that is not controlled by pain medications Increasing redness, swelling, or drainage from incisions Change in sensation FOLLOW-UP APPOINTMENTS: 1. You will have follow-up appointments at [facility] as indicated below in Future Appointment and Orders. 2. You will need to have x-rays prior to your follow-up appointment on 12/22. Please come to Radiology, desk 3T, 1 hour BEFORE that appointment for these x-rays. Future Appointments Date Time Provider Department Center 12/22/2021 9:15 AM [facility] DX ROOM 3 Xray [facility] Rad 12/22/2021 10:00 AM Ismael Wu MD [facility] ORTH 3C [facility] If you have questions or concerns: Saturday through Saturday, 8 AM - 5 PM, please call Dr. Ismael Wu MD's office at . If it is after 5 PM, the weekend, or holidays, please call and ask to speak with theOrthopedic resident on-call. documented in this encounter Medications at Time of Discharge Medication Sig Dispensed Refills Start Date End Date omega 9-ibh-rwq-fish oil 250-350-1,000 mg Capsule Take 1,000 mg [...] recieved chemo in [place] ??? Coronary artery disease ??? Coronary artery [...] 9.19) performed by Basim Barr MD at [facility] MAIN OR ??? PRO LASER VAPORIZATION SURGERY PROSTATE, COMPLETE Midline 02/02/2021 CYSTO, LASER TURP (WRVU 12.15) performed by Cayetano Engle MD at [facility] MAIN OR ??? PRO PLACE TRANSCATHETER STENT, CCA W EMBOLIC PROECT Right 07/14/2021 @TRANSCATH INTRAVASCULAR STENT,CAROTID,PERC,W\EMBOLIC PROT. (WRVU 18) performed by Basim Barr MD at [facility] MAIN OR ??? PRO TOTAL HIP ARTHROPLASTY Left 10/10/2020 TOTAL HIP ARTHROPLASTY - POSTERIOR (WRVU 20.72) performed by Ismael Wu MD at [facility] MAIN OR Social History: Patient lives [...] 50.11% limited in ADL performance per the [facility]. However, despite the deficits listed above patient [...] Minutes, Occupational Therapy: 31 (Low Complexity Eval [phone]) 2017 OT Evaluation Code Rationale: ?? Diagnosis [...] functional outcome. Ping El OT 11/18/2021 Pager: [phone] Occupational Therapy Rehabilitation Department * Nimisha Mahoney, [...] 9.19) performed by Basim Barr MD at [facility] MAIN OR ??? PRO LASER VAPORIZATION SURGERY PROSTATE, COMPLETE Midline 02/02/2021 CYSTO, LASER TURP (WRVU 12.15) performed by Cayetano Engle MD at [facility] MAIN OR ??? PRO PLACE TRANSCATHETER STENT, CCA W EMBOLIC PROECT Right 07/14/2021 @TRANSCATH INTRAVASCULAR STENT,CAROTID,PERC,W\EMBOLIC PROT. (WRVU 18) performed by Basim Barr MD at [facility] MAIN OR ??? PRO TOTAL HIP ARTHROPLASTY Left 10/10/2020 TOTAL HIP ARTHROPLASTY - POSTERIOR (WRVU 20.72) performed by Ismael Wu MD at [facility] MAIN OR Social History: Wero lives [...] low complexity eval Nimisha Mahoney, PT Pager: [phone] Physical Therapy Inpatient Rehabilitation Department * Slim Smallwood MD - 11/18/2021 5:52 AM EDT ORTHOPAEDIC SURGERY INPATIENT PROGRESS NOTE Patient Name: Wero Sadler Age: 71 y.o. Surgery/Issue: Right Total Hip Arthroplasty Attending: Dr. Wu Date of surgery: 11/17/2021 SUBJECTIVE / INTERVAL HISTORY: NAEO, AFVSS Hgb 11.1. Unable to void in PACU, [...] Ophthalmic Prep) 5 % ophthalmic solution ??? KMyrgnczitt-GTMTUWUdzkt-ivnGGIdxt-ketorolac (LISANDRA) (2.46 mg-0.005 mg-0.0008 mg-0.3 mg/mL) cb-articular [...] Time Provider Department Center 12/22/2021 9:15 AM [facility] DX ROOM 3 MH Xray [facility] Rad 12/22/2021 10:00 AM Ismael Wu MD [facility]TH 3C [facility] * Floridalma Barron RN - 11/17/2021 9:35 [...] 4 mg ??? lactated ringers infusion ??? QYgqgvzgshi-HHALNMKbpgb-msjRVWjes-ketorolac (LISANDRA) (2.46 mg-0.005 mg-0.0008 mg-0.3 mg/mL) cb-articular [...] Time Provider Department Center 12/22/2021 9:15 AM [facility] DX ROOM 3 MH Xray [facility] Rad 12/22/2021 10:00 AM Ismael Wu MD [facility] ORTH 3C [facility] documented in this encounter H&P Notes * [...] properly marked. Charleen Smallwood MD Orthopaedic Surgery [facility] Associated attestation - Ismael Wu MD [...] Wu MD, MSc Division of Adult Reconstructive Business Continuity DirectorManager Of Internal of Orthopaedics Department of Orthopaedics [facility] [phone] [email or web address] documented in this encounter Procedure Notes * [...] COVID test: Lab Results Component Value Date [id number] Not Detected 07/19/2021 Past medical History: Past Medical History: Diagnosis Date ??? 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 can not read. can see shadows. No vision in left eye since child saavedra accident. ??? Cancer prostate, colorectal ??? Claudication ??? Colon adenocarcinoma 2009 recieved chemo in [place] ??? Coronary artery disease ??? Coronary artery [...] surrogate would be surrogate decision maker per [place] surrogate decision making law. (Only good for 180 days) Any patient receiving care in [place] must abide by [place] law. The hierarchy for surrogate decision making [...] (i) The agent with financial power of mergers and acquisitions attorney or a conservator appointed in accordance [...] - manual Home Address confirmed as: [address] [place] [phone] Social & Family Supports: All names listed below confirmed with patient as current and correct Extended Emergency Contact Information Primary Emergency Contact: SAKINAShanteAMY Address: [address] [place] [address] [facility] Relation: Significant Other Secondary Emergency Contact: [...] Yes (AARP) ; Prescription Coverage: Preferred Pharmacy: [id number] - [place], [place] - [address] [facility] [address] [place] [address] [facility] [phone] [facility] - [place], [place] - [address] [facility] [address] [facility] [address] Status: Patient is a : No Primary Care Provider: Alo Carey DO [phone] Patient/Caregiver Goals of Treatment: return home when medically ready for discharge Potential Needs for Transition of Care: home health care Agency Referrals: I have met with the patient to: ?? discuss discharge planning needs. ?? provide the [facility], Office of Care Management letter from the Pre Owned Sales Manager pertaining to rehabreferrals. ?? provide a letter describing our affiliations within the [facility] and educate about their right to choose where referrals are sent. ?? provide a list of Home Health Agencies / Durable Medical Equipment vendors which serve their preferred geographic area. ?? provided patient with [facility] Star Quality Rating handout. They have requested referrals to: [facility] [address] [place] [address] Note routed to a Reclamation Engineer who will communicate referrals to facilities and [...] of care planning. Gissel SANTOS RN Phone: [phone] Pager: [phone] * Plan of Care - Floridalma Barron [...] stroke, per pt and L eye has terminal system operator prosthesis. No acute events overnight. Will continue [...] Wu MD - 11/17/2021 2:05 PM EDT [facility] Operative Note Patient Name: Wero Sadler : [id number] MR#: [id number] Case Date: 11/17/2021 Surgeon: Surgeon(s) and Role: * Ismael Wu MD - Primary * Slim Smallwood MD - Resident Preoperative Diagnosis: Osteoarthritis right Hip Postoperative Diagnosis: Same Procedure Performed: right Total Hip Arthroplasty (CPT code 05804) Anesthesia: Spinal IVF: See anesthesia report Estimated [...] of full thickness cartilage loss. IMPLANTS: System: [employer] Femoral Stem: Actis high offset, Size 7; collared, SCOTT coated Acetabulum: [employer] Gription size 60mm; x2 6.5mm cancellous screws Liner: 60 x 36mm neutral liner Femoral Head: 36mm +8.5mm ceramic head (Please also see the Surgical Encounter Summary for any Implant and Specimen details pertinent to this patient.) Implant Summary in EHR: Implant Name Type Inv. Item Serial No. Tank Setter Lot No. LRB No. Used Action SHELL ACET HIP 60MM POR CTD MULTI HOLE TI PINNACLE GRIPTION ([id number]) (AUTOREQ) - [id number] IMPLANTS SHELL ACET HIP 60MM POR CTD MULTI HOLE TI PINNACLE GRIPTION ([id number]) (AutoReq) Netsize [facility] DARIAN [id number] Right 1 Implanted LINER ACET HIP [id number] STND POLY PINNACLE ALTRX ([id number]) (AUTOREQ) - [id number] IMPLANTS LINER ACET HIP [id number] STND POLY PINNACLE ALTRX ([id number]) (AutoReq) [employer]ize [facility] DARIAN [id number] Right 1 Implanted SCREW HIP ACET 6.5X25MM FT CANC HEX DRV TI PINNACLE ([id number]) (AUTOREQ) - [id number] IMPLANTS SCREWHIP ACET 6.5X25MM FT CANC HEX DRV TI PINNACLE ([id number]) (AutoReq) [employer]ets[employer] [facility] DARIAN [id number] Right 1 Implanted SCREW HIP ACET 6.5X20MM FT CANC HEX DRV TI PINNACLE ([id number]) (AUTOREQ) - [id number] IMPLANTS SCREWHIP ACET 6.5X20MM FT CANC HEX DRV TI PINNACLE ([id number]) (AutoReq) Embedded Chat DARIAN [id number] Right 1 Implanted STEM FEMORAL HIP SZ 7 PROX 12/14 TAPER POR CLLR HIGH OFST TI ([id number]) (AUTOREQ) - [id number] IMPLANTS STEM FEMORAL HIP SZ 7 PROX 12/14 TAPER POR CLLR HIGH OFST TI ([id number]) (AutoReq) Embedded Chat DARIAN [id number] Right 1 Implanted HEAD FEMORAL HIP 36MM +8.5MM OFFSET 12/14 TPR CERAMIC ([id number]) (AUTOREQ) - [id number] IMPLANTS HEAD FEMORAL HIP 36MM +8.5MM OFFSET 12/14 TPR CERAMIC ([id number]) (AutoReq) Embedded Chat DARIAN [id number] Right 1 Implanted PATIENT HISTORY and INDICATIONS [...] ??? Colon adenocarcinoma 2008 recieved chemo in [place] ??? Coronary artery disease ??? Coronary artery [...] and found to be appropriate with good restorationist of leg length and offset. A intraoperative x ray was taken and confirmed appropriate sizing and positioning of implants along with proper restorationist of leg length and offset. The hip [...] patient was then awoken, transferred to the [facility] and taken to the PACU in [...] closing). Ismael Wu MD 11/17/2021 If the studio assistant surgeon is other than a qualified resident, I certify that the services were medically necessary and there was no qualified resident available to perform the services. documented in this encounter Plan of Treatment Upcoming Encounters Date Type Department Care Team (Late st Contact Info) Description 04/09/2024 9:30 AM EST Office Visit Hematology/Oncology at [address] [phone] Cl Hess MD [facility] [place] [place] [address] Yessi Renee, [address] HEMATOLOGY AND ONCOLOGY [place], [place] [address] 04/09/2024 10:00 AM EST Infusion Hematology Oncology at [address] [phone] 04/23/2024 9:30 AM EST Office Visit Hematology/Oncology at [address] [phone] Cl Hess MD [facility] [place] [place] [address] [address] HEMATOLOGY AND ONCOLOGY [place], [place] [address] 04/23/2024 10:00 AM EST Infusion Hematology Oncology at [address] [phone] 05/18/2024 4:30 PM EDT TH Visit (TeleHealth) [place]iation [place] [address] Malachi Rothman MD [facility] [place] [address] 09/24/2024 9:00 AM EDT Office Visit Radiation Oncology at [address] [phone] Ping Moore PA [facility] [place] [address] Scheduled Referrals Name Type Priority Associated Diagnoses [...] leg pain Arthroplasty Acetabular/Prox Fem Prostc Agrft/Algrft (43144) 11/17/2021 1:37 PM EDT Primary osteoarthritis of [...] Glucose, POC 182 65 - 199 mg/dL [facility] Comment: Supplemental ranges: <140 mg/dL before meals <180 mg/dL all other times of the day Blood 11/18/2021 11:5 2 AM EDT 11/18/2021 11:52 AM EDT Ismael Wu MD POINT OF CARE TEST ORDERABLES Performing Organization Address [facility]/ZIP Co de Phone Number [facility] [place] [address] * POCT Glucose (11/18/2021 7:50 AM EDT) [facility] Signature Glucose, POC 159 65 - 199 mg/dL [facility] Comment: Supplemental ranges: <140 mg/dL before meals <180 mg/dL all other times of the day Blood 11/18/2021 7:50 AM EDT 11/18/2021 7:50 AM EDT Ismael Wu MD POINT OF CARE TEST ORDERABLES [facility] [place] [address] * (ABNORMAL) Differential, Automated (11/18/2021 3:20 AM EDT) Neutrophil % 86.1 % [facility] Neutrophil Absolute 8.17(H) 1.70 - 6.10 x10(3)/mc L [facility] Lymph % 6.9 % [facility] Lymphocytes Abs 0.7(L) 0.9 - 3.2 x10(3)/[facility] Monocyte % 6.5 % [facility] Monocyte Abs 0.6 0.3 - 0.9 x10(3)/[facility] Eos % 0.1 % [facility] Eosinophils Abs 0.0 0.0 - 0.4 x10(3)/[facility] Basophil % 0.1 % [facility] Baso Absolute 0.0 0.0 - 0.1 x10(3)/[facility] Immature Gran % 0.30 % [facility] Comment: Immature granulocytes(IG's)percentage and absolute count will include metamyelocytes, myelocytes, and promyelocytes. Blood smears from CBCs yielding IG's will be scanned manually for concordance. If this scan disagrees with the automated IG or if promyelocytes are noted, a manual differential will be performed. Immature Gran Absolute 0.03 0.00 - 0.04 x10(3)/[facility] Blood 11/18/2021 3:20 AM EDT 11/18/2021 3:40 AM EDT Narrative Resulting Agency Comment Spec In Lab Slim Smallwood MD HEMATOLOGY ORDERABLE S [facility] [place] [address] * (ABNORMAL) Hemogram (11/18/2021 3:20 AM EDT) White Blood Cell 9.5 4.0 - 9.5 x10(3)/[facility] Red Blood Cell 3.50(L) 4.58 - 5.54 x10(6)/[facility] Hemoglobin 11.1(L) 13.7 - 16.5 g/dL [facility] Hematocrit 33.0(L) 40.5 - 48.5 % [facility] Mean Cell Volume 94.3(H) 82.9 - 93.[address] [facility] Mean Cell Hemoglobin 31.7 27.5 - 32.[address] [facility] Mean Cell Hemoglobin Concentration 33.6 32.0 - 35.7 g/dL [facility] Platelet 178 145 - 357 x10(3)/mc L [facility] RDW Standard Deviation 43.3 36.0 - 45.[address] [facility] RDW coefficient of variation 12.6 11.4 - 13.8 % [facility] Mean Platelet Volume 10.1 7.6 - 12.[address] [facility] NRBC% auto 0.0 % [facility] NRBC Absolute 0.000 0.000 - 0.000 x10(3)/mc L [facility] Blood 11/18/2021 3:20 AM EDT 11/18/2021 3:40 AM EDT Narrative Resulting Agency Comment Spec In Lab Slim Smallwood MD HEMATOLOGY ORDERABLE S [facility] [place] [address] * (ABNORMAL) Basic Metabolic Panel (non-fasting) (11/18/2021 3:20 AM EDT) Glucose 200(H) 65 - 199 mg/dL [facility] Comment:Diabetes: >=200 mg/d L plus symptoms Blood Urea Nitrogen 15 10 - 20 mg/dL [facility] Creatinine 0.65(L) 0.80 - 1.50 mg/dL [facility] Sodium 139 135 - 145 mmol/L [facility] Potassium 4.0 3.5 - 5.0 mmol/L [facility] Comment: Please note: ??Patients with WBC >100,000 may have falsely elevated Potassium levels. ??For accurate Potassium quantification in these patients send serum separator tube (gold top) for subsequent determinations. ??Contact the Clinical Chemistry Laboratory if there are any questions. Chloride 104 98 - 107 mmol/L [facility] Carbon Dioxide 26 22 - 31 mmol/L [facility] Anion Gap 9 5 - 15 mmol/L [facility] Calcium 8.9 8.5 - 10.5 mg/dL [facility] Est Glomerular Filtration Rate 99 >=60 mL/min/1. 73 m?? [facility] Comment: This patient's estimated GFR [...] MD CHEMISTRY ORDERABLE S Performing Organization Address City/[facility]/ZIP Co de Phone Number [facility] [place] [address] * (ABNORMAL) POCT Glucose (11/18/2021 3:19 AM EDT) Glucose, POC 206(H) 65 - 199 mg/dL [facility] Comment: Supplemental ranges: <140 mg/dL before meals <180 mg/dL all other times of the day Blood 11/18/2021 3:19 AM EDT 11/18/2021 3:19 AM EDT Ismael Wu MD POINT OF CARE TEST ORDERABLES [facility] [place] [address] * (ABNORMAL) POCT Glucose (11/18/2021 12:05 AM EDT) Glucose, POC 239(H) 65 - 199 mg/dL [facility] Comment: Supplemental ranges: <140 mg/dL before meals <180 mg/dL all other times of the day Blood 11/18/2021 12:0 5 AM EDT 11/18/2021 12:05 AM EDT Ismael Wu MD POINT OF CARE TEST ORDERABLES [facility] [place] [address] * XR Pelvis (Generic) (11/17/2021 8:01 PM [...] who have questions please contact the health respiratory care technician that requested your imaging first. ? Narrative 11/18/2021 4:46 PM EDT EXAMINATION: XR [...] patients who have questions please contactthe health respiratory care technician that requested your imaging first. Electronically signed by: Deidra Adams MD, [facility]([phone]), at 11/18/2021 4:46 PM Ismael Wu MD IMG DX ORDERABLES * (ABNORMAL) POCT Glucose (11/17/2021 7:43 PM EDT) Glucose, POC 216(H) 65 - 199 mg/dL [facility] Comment: Supplemental ranges: <140 mg/dL before meals <180 mg/dL all other times of the day Blood 11/17/2021 7:43 PM EDT 11/17/2021 7:43 PM EDT Ismael Wu MD POINT OF CARE TEST ORDERABLES [facility] [place] [address] * POCT Glucose (11/17/2021 4:50 PM EDT) Glucose, POC 178 65 - 199 mg/dL [facility] Comment: Supplemental ranges: <140 mg/dL before meals <180 mg/dL all other times of the day Blood 11/17/2021 4:50 PM EDT 11/17/2021 4:50 PM EDT Ismael Wu MD POINT OF CARE TEST ORDERABLES [facility] [place] [address] * POCT Glucose (11/17/2021 1:14 PM EDT) Glucose, POC 134 65 - 199 mg/dL [facility] Comment: Supplemental ranges: <140 mg/dL before meals <180 mg/dL all other times of the day Blood 11/17/2021 1:14 PM EDT 11/17/2021 1:14 PM EDT Ismael Wu MD POINT OF CARE TEST ORDERABLES [facility] [place] [address] * Type and Screen Validity (11/17/2021 1:00 PM EDT) T&S only valid at [facility] LABORATORY Comment:This Type and Screen result is only valid at the [facility] Blood 11/17/2021 1:00 PM EDT 11/17/2021 1:05 PM EDT Narrative Resulting Agency Comment Spec In Lab Eros Foss MD BLOOD BANK LAB ORDER JOSE FRANCISCO [facility] [place] [address] * ABORH Recheck Status (11/17/2021 1:00 PM EDT) ABORH Type Recheck Completed [facility] Blood 11/17/2021 1:00 PM EDT 11/17/2021 1:05 PM EDT Narrative Resulting Agency Comment Spec In Lab Eros Foss MD BLOOD BANK LAB ORDER JOSE FRANCISCO [facility] [place] [address] * Antibody screen (11/17/2021 1:00 PM EDT) Ab Screen Interp Negative [facility] Expires at 2359 on: 11/20/2021 [facility] Blood 11/17/2021 1:00 PM EDT 11/17/2021 1:05 PM EDT Narrative Resulting Agency Comment Spec In Lab Eros Foss MD BLOOD BANK LAB ORDER JOSE FRANCISCO [facility] [place] [address] * ABO/Rh Typing (11/17/2021 1:00 PM EDT) ABORH Type O Pos [facility] Blood 11/17/2021 1:00 PM EDT 11/17/2021 1:05 PM EDT Narrative Resulting Agency Comment Spec In Lab Eros Foss MD BLOOD BANK LAB ORDER JOSE FRANCISCO [facility] [place] [address] * (ABNORMAL) Hemogram (11/17/2021 1:00 PM EDT) White Blood Cell 3.4(L) 4.0 - 9.5 x10(3)/mc L [facility] Red Blood Cell 3.74(L) 4.58 - 5.54 x10(6)/mc L [facility] Hemoglobin 11.8(L) 13.7 - 16.5 g/dL [facility] Hematocrit 34.7(L) 40.5 - 48.5 % [facility] Mean Cell Volume 92.8 82.9 - 93.[address] [facility] Mean Cell Hemoglobin 31.6 27.5 - 32.[address] [facility] Mean Cell Hemoglobin Concentration 34.0 32.0 - 35.7 g/dL [facility] Platelet 159 145 - 357 x10(3)/mc L [facility] RDW Standard Deviation 43.9 36.0 - 45.[address] [facility] RDW coefficient of variation 13.0 11.4 - 13.8 % [facility] Mean Platelet Volume 9.7 7.6 - 12.[address] [facility] NRBC% auto 0.0 % [facility] NRBC Absolute 0.000 0.000 - 0.000 x10(3)/mc L [facility] Blood 11/17/2021 1:00 PM EDT 11/17/2021 1:10 PM EDT Narrative Resulting Agency Comment Spec In Lab Ismael Wu MD HEMATOLOGY ORDERABL ES [facility] [place] [address] * SCAN DOC: IMPLANTABLE DEVICES (11/17/2021 12:00 [...] Sat11/17/21 at 2139, Until Sat11/18/21 at 1826, Pain, Routine Given 11/18/2021 6:49 [...] PM EDT 30 mLs 19- Surgical Site QWroysnqhrx-PLTMPBHwttn-hsnX IDine-ketorolac (LISANDRA) (2.46 mg-0.005 mg-0.0008 mg-0.3 mg/mL) [...] Floridalma Barron, AYE)1434 (Given - Provider: Mariana Villafuerte RN) amLODIPine (Norvasc) tablet 5 mg 5 mg, Oral, DAILY, First dose on Sat11/18/21 at 0900, Until Discontinued, hold if SBP<120, Routine 0905 (Not Given - Provider: Mariana Villafuerte RN - Reason: Patient/family refused - Comment: bp low) aspirin EC tablet 81 mg 81 mg, Oral, DAILY, First dose on Sat11/18/21 at 0900, Until Discontinued, Routine 0904 (Given [...] 2206 (Given - Provider: Floridalma Barron RN) 903 [...] ONCE, 1 dose, On Sat11/17/21 at 2315 7346 (Given - Provider: Floridalma Barron RN) insulin [...] 220 (Given - Provider: Floridalma Barron RN) 09 [...] on Sat11/18/21 at 0900, Until Discontinued, Routine 0903 (Given - Provid er: Mariana Villafuerte RN) Continuous Medication Order 11/16/2021 11/17/2021 11/18/2021 lactated ringers infusion 1,000 mL, at 100 mL/hr, Intravenous, CONTINUOUS, Starting on Sat11/17/21 at 1630, Until 11/18/21 at 1826, Recovery (Recovery-Hospital Unit) 1948 (New Bag - Provider: Rosalee Estephanie, RN) 1206 (New Bag - Provider: Mariana [...] Alternative - Provider: Janki Mathis RN) 151 (Given - Provider: Floridalma Barron RN)1026 (Given [...] RN) 151 (See Alternative - Provider: Floridalma Barron RN)1026 [...] RN) 151 (See Alternative - Provider: Floridalma Barron RN)1026 (See Alternative - Provider: Mariana Villafuerte RN) povidone-iodine (Betadine Ophthalmic Prep) 5 % ophthalmic solution (CANCELED) ONCE PRN, Starting on Sat11/17/21 at 1407, Until 11/18/21 at 1826, Intra-Operative (Intra-Procedure), Routine 1407 (Given - Provider: Ismael Wu MD - Comment: added to 500ml NACL for irrigation) VIuizsybodo-JTJUCVWvsja-uv oNIDine-ketorolac (LISANDRA) (2.46 mg-0.005 mg-0.0008 mg-0.3 mg/mL) [...] Routine documented in this encounter Care Teams Behavioral Medical Director Relationship Specialty Start Date End Date Alo Carey DO [address] [place] [address] [place] [address] PCP - General Internal Medicine 08/31/20 07/03/23 documented as of this encounter
--- OUTSIDE RECORDS SUMMARY | 2024-03-26 10:38 | XMS_ITS | Encounter Summary ---
Author Organization [facility] [place] [address] Care Team Providers Care Analysis Reporting Developer Name Role Phone YungAlo santiago Primary Care Provider [phone] Reason for Visit * Reason Onset Date Comments Other 08/17/2021 Pre Procedure Call 08/17/2021 Encounter Details Date Type Department Care Team (Late st Contact Info) Description 08/17/2021 Telephone [place] [phone] Ismael Wu MD [facility] [place] [address] Other; Pre Procedure Call Social History Tobacco [...] left a message for patient to call [phone] directly and schedule surgery with Dr. Wu. * Telephone Encounter - Radha Rivas - 08/17/2021 4:25 PM EDT Name of person calling: Wero What is the question: Patient wanting to know next steps as he has been cleared by his vascular provider to proceed with surgery. Best number to reach the caller: [phone] documented in this encounter Plan of Treatment Upcoming Encounters Date Type Department Care Team (Late st Contact Info) Description 04/09/2024 9:30 AM EST Office Visit Hematology/Oncology at [address] [phone] Cl Hess MD [facility] [place] [address] [address] [place]EMATOLOGY [place] [address] 04/09/2024 10:00 AM EST Infusion Hematology Oncology at [address] [phone] 04/23/2024 9:30 AM EST Office Visit Hematology/Oncology at [address] [phone] Cl Hess MD [facility] [address] [address] [place]EMATOLOGY [place] [address] 04/23/2024 10:00 AM EST Infusion Hematology Oncology at [address] [phone] 05/18/2024 4:30 PM EDT TH Visit (TeleHealth) [place] [address] Malachi Rothman MD [facility] [place] [address] 09/24/2024 9:00 AM EDT Office Visit Radiation Oncology at [address] [phone] Ping Moore PA [facility] DR [place] [address] documented as of this encounter Visit Diagnoses Not on filedocumented in this encounter Care Teams Analysis Reporting Developer Relationship Specialty Start Date End Date Alo Carey DO [address] [place] [address] [place] [address] PCP - General Internal Medicine 08/31/20 07/03/23 documented as of this encounter
--- OUTSIDE RECORDS SUMMARY | 2024-03-26 10:38 | XMS_ITS | Encounter Summary ---
[place] [address] Care Team Providers Care System Validation Engineer Name Role Phone Alo Carey Primary Care Provider [phone] Reason for Visit * Reason Comments Medication Refill Encounter Details Date Type Department Care Team (Late Contact Info) Description 10/23/2021 Refill Radiation Oncology at [address] [phone] Bigg Peters MD [address] [place] [address] [place] [address] Social History Tobacco Use Types [...] AM EST Office Visit Hematology/Oncology at [address] [phone] Cl Hess MD [facility] [place] [address] HEMATOLOGY AND ONCOLOGY [place], [place] [phone] 04/09/2024 10:00 AM EST Infusion Hematology Oncology at [address] [phone] 04/23/2024 9:30 AM EST Office Visit Hematology/Oncology at [address] [phone] Cl Hess MD [facility] [place] [address] HEMATOLOGY AND ONCOLOGY [place], [place] [phone] 04/23/2024 10:00 AM EST Infusion Hematology Oncology at [address] [phone] 05/18/2024 4:30 PM EDT TH Visit (TeleHealth) [place] [address] Malachi Rothman MD [facility] [place] [address] 09/24/2024 9:00 AM EDT Office Visit Radiation Oncology at [address] [phone] Ping Moore PA [facility] [place] [address] documented as of this encounter Visit Diagnoses Not on filedocumented in this encounter Care Teams System Validation Engineer Relationship Specialty Start Date End Date Alo Carey DO [address] [place] [address] [place] [address] PCP - General Internal Medicine 08/31/20 07/03/23 documented as of this encounter
--- OUTSIDE RECORDS SUMMARY | 2024-03-26 10:38 | XMS_ITS | Encounter Summary ---
[place] [address] Care Team Providers Care Account Services Representative Name Role Phone Alo Carey Primary Care Provider [phone] Encounter Details Date Type Department Care Team (Late st Contact Info) Description 09/21/2021 1:00 PM EDT Office Visit Radiation Oncology at [address] [phone] Bigg Peters MD [address] [place] [address] [place] [address] Malignant neoplasm of prostate Social [...] from the original note were not included. [facility] Medicine Radiation Oncology Radiation Oncology [...] placed in this encounter. ??? National [facility] [place] (NCI) [facility] ??? [employer] Commission on Cancer (ACS Joanna) Accredited Cancer Program ??? [employer] (ACR) Accredited Radiation Oncology Program documented in this encounter Plan of Treatment Upcoming Encounters Date Type Department Care Team (Late st Contact Info) Description 04/09/2024 9:30 AM EST Office Visit Hematology/Oncology at [address] [phone] Cl Hess MD [facility] [place] [address] Yessi Renee MEDIA TECHNICIAN [address] [place] [address] [place] [address] 04/09/2024 10:00 AM EST Infusion Hematology Oncology at [address] [phone] 04/23/2024 9:30 AM EST Office Visit Hematology/Oncology at [address] [phone] Cl Hess MD [facility] [place] [address] Yessi Renee APRN [address] [place] [address] DR HEMATOLOGY AND ONCOLOGY [place], [place] [address] 04/23/2024 10:00 AM EST Infusion Hematology Oncology at [address] [phone] 05/18/2024 4:30 PM EDT TH Visit (TeleHealth) [place] [address] Malachi Rothman MD [facility] DR [place] [address] 09/24/2024 9:00 AM EDT Office Visit Radiation Oncology at [address] [phone] Ping Moore PA [facility] DR HEMATOLOGY [place] [address] documented as of this encounter Visit Diagnoses Diagnosis Malignant neoplasm of prostate documented in this encounter Care Teams Account Services Representative Relationship Specialty Start Date End Date Alo Carey DO [address] [place] [address] [place] [phone] PCP - General Internal Medicine 08/31/20 07/03/23 documented as of this encounter
--- OUTSIDE RECORDS SUMMARY | 2024-03-26 10:38 | XMS_ITS | Encounter Summary ---
[place] [address] Care Team Providers Care Manager Of Marketing Name Role Phone Alo Carey DO Primary Care Provider [phone] Encounter Details Date Type Department Care Team (Late st Contact Info) Description 10/12/2021 Orders Only [place] [address] Ismael Wu MD [facility] [place] [address] Primary osteoarthritis of right hip Social History [...] AM EST Office Visit Hematology/Oncology at [address] [phone] Cl Hess MD [facility] [place] [address] [address] HEMATOLOGY AND ONCOLOGY [place], [place] [phone] 04/09/2024 10:00 AM EST Infusion Hematology Oncology at [address] [phone] 04/23/2024 9:30 AM EST Office Visit Hematology/Oncology at [address] [phone] Cl Hess MD [facility] [address] [address] HEMATOLOGY AND ONCOLOGY [place], [place] [phone] 04/23/2024 10:00 AM EST Infusion Hematology Oncology at [address] [phone] 05/18/2024 4:30 PM EDT TH Visit (TeleHealth) [place] [address] Malachi Rothman MD [facility] [place] [address] 09/24/2024 9:00 AM EDT Office Visit Radiation Oncology at [address] [phone] Ping Moore PA [facility] [place] [address] documented as of this encounter Visit Diagnoses Diagnosis Primary osteoarthritis of right hip Primary localized osteoarthrosis, pelvic region and thigh documented in this encounter Care Teams Manager Of Marketing Relationship Specialty Start Date End Date Alo Carey DO [address] [place] [address] [place] [address] PCP - General Internal Medicine 08/31/20 07/03/23 documented as of this encounter
--- OUTSIDE RECORDS SUMMARY | 2024-03-26 10:38 | XMS_ITS | Encounter Summary ---
[place] [address] Care Team Providers Care Administrative Support Clerk Name Role Phone YungAlo santiago Primary Care Provider [phone] Encounter Details Date Type Department Care Team (Late st Contact Info) Description 04/10/2022 Telephone Radiation Oncology at [address] [phone] Nicole Bhatt RN Social History [...] EST Call placed to [facility] in [place], in regards to patients Lupron inj. and recent lab results. 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 Correct number to reach him is [phone]. Message left for his primary RN to [...] refill. He would like refill sent to [facility] in [place], [place] [address] and [facility]. He also mentioned that he had recent labs including PSA and HgbA1C done at [facility] by Dr. Hai Sewell (phone: [phone]) and was a bit surprised that we [...] send any necessary information to [facility]. ===View-only below this line=== documented in this encounter Plan of Treatment Upcoming Encounters Date Type Department Care Team (Late st Contact Info) Description 04/09/2024 9:30 AM EST Office Visit Hematology/Oncology at [address] [phone] Cl Hess MD [facility] [place] [address] HEMATOLOGY AND ONCOLOGY [place], [place] [phone] 04/09/2024 10:00 AM EST Infusion Hematology Oncology at [address] [phone] 04/23/2024 9:30 AM EST Office Visit Hematology/Oncology at [address] [phone] Cl Hess MD [facility] [place] [address] HEMATOLOGY AND ONCOLOGY [place], [place] [phone] 04/23/2024 10:00 AM EST Infusion Hematology Oncology at [address] [phone] 05/18/2024 4:30 PM EDT TH Visit (TeleHealth) [place] [address] Malachi Rothman MD [facility] [place] [address] 09/24/2024 9:00 AM EDT Office Visit Radiation Oncology at [address] [phone] Ping Moore PA [facility] DR HEMATOLOGY [place] [address] documented as of this encounter Visit Diagnoses Not on filedocumented in this encounter Care Teams Administrative Support Clerk Relationship Specialty Start Date End Date Alo Carey DO [address] [place] [address] [place] [phone] PCP - General Internal Medicine 08/31/20 07/03/23 documented as of this encounter
--- OUTSIDE RECORDS SUMMARY | 2024-03-26 10:38 | XMS_ITS | Encounter Summary ---
Author [place] [address] Care Team Providers Care Machine Scallop Cutter Name Role Phone YungAlo santiago Primary Care Provider [phone] Reason for Visit * Reason Comments Medication Refill Encounter Details Date Type Department Care Team (Late Contact Info) Description 04/10/2022 Refill Radiation Oncology at [address] [phone] Bigg Peters MD [address] [place] [address] [place] [address] Malignant neoplasm of prostate Social [...] AM EST Office Visit Hematology/Oncology at [address] [phone] Cl Hess MD [facility] [place] [address] [address] HEMATOLOGY AND ONCOLOGY [place], [place] [phone] 04/09/2024 10:00 AM EST Infusion Hematology Oncology at [address] [phone] 04/23/2024 9:30 AM EST Office Visit Hematology/Oncology at [address] [phone] Cl Hess MD [facility] [place] [address] Yessi eRnee, [address] HEMATOLOGY AND ONCOLOGY [place], [place] [phone] 04/23/2024 10:00 AM EST Infusion Hematology Oncology at [address] [phone] 05/18/2024 4:30 PM EDT TH Visit (TeleHealth) [place] [address] Malachi Rothman MD [facility] [place] [address] 09/24/2024 9:00 AM EDT Office Visit Radiation Oncology at [address] [phone] Ping Moore PA [facility] DR HEMATOLOGY [place] [address] documented as of this encounter Visit Diagnoses Diagnosis Malignant neoplasm of prostate documented in this encounter Care Teams Machine Scallop Cutter Relationship Specialty Start Date End Date Alo Carey DO [address] [place] [address] [place] [phone] PCP - General Internal Medicine 08/31/20 07/03/23 documented as of this encounter
--- OUTSIDE RECORDS SUMMARY | 2024-03-26 10:38 | XMS_ITS | Encounter Summary ---
[place] [address] Care Team Providers Care Director Of Quantitative Research Name Role Phone YungAlo santiago Primary Care Provider [phone] Reason for Visit * Reason Comments Medication Refill Encounter Details Date Type Department Care Team (Late st Contact Info) Description 05/30/2022 Refill Radiation Oncology at [address] [phone] Alonso Peters MD [address] [place] [address] [place] [address] Malignant neoplasm of prostate Social [...] AM EST Office Visit Hematology/Oncology at [address] [phone] Cl Hess MD [facility] [place] [address] [place] [address] 04/09/2024 10:00 AM EST Infusion Hematology Oncology at [address] [phone] 04/23/2024 9:30 AM EST Office Visit Hematology/Oncology at [address] [phone] Cl Hess MD [facility] [place] [address] HEMATOLOGY AND ONCOLOGY [place], [place] [phone] 04/23/2024 10:00 AM EST Infusion Hematology Oncology at [address] [phone] 05/18/2024 4:30 PM EDT TH Visit (TeleHealth) [place] [address] Malachi Rothman MD [facility] [place] [address] 09/24/2024 9:00 AM EDT Office Visit Radiation Oncology at [address] [phone] Ping Moore PA [facility] DR [place]ATOLOG[place] [address] documented as of this encounter Visit Diagnoses Diagnosis Malignant neoplasm of prostate documented in this encounter Care Teams Director Of Quantitative Research Relationship Specialty Start Date End Date Alo Carey DO [address] [place] [address] [place] [phone] PCP - General Internal Medicine 08/31/20 07/03/23 documented as of this encounter
--- OUTSIDE RECORDS SUMMARY | 2024-03-26 10:38 | XMS_ITS | Encounter Summary ---
[place] [address] Care Team Providers Care Drier And Evaporator Operator Name Role Phone YungAlo santiago Primary Care Provider Reason for Visit * Reason Comments Medication Refill Encounter Details Date Type Department Care Team (Late st Contact Info) Description 12/22/2021 Refill Radiation Oncology at [address] [phone] Bigg Peters MD [address] [place] [address] [place] [address] Malignant neoplasm of prostate Social [...] AM EST Office Visit Hematology/Oncology at [address] [phone] Cl Hess MD [facility] [place] [address] [address] HEMATOLOGY [place] [address] 04/09/2024 10:00 AM EST Infusion Hematology Oncology at [address] [phone] 04/23/2024 9:30 AM EST Office Visit Hematology/Oncology at [address] [phone] Cl Hess MD [facility] [place] [address] [address] HEMATOLOGY [place] [address] 04/23/2024 10:00 AM EST Infusion Hematology Oncology at [address] [phone] 05/18/2024 4:30 PM EDT TH Visit (TeleHealth) [place] [address] Malachi Rothman MD [facility] [place] [address] 09/24/2024 9:00 AM EDT Office Visit Radiation Oncology at [address] [phone] Ping Moore PA [facility] [place] [address] documented as of this encounter Visit Diagnoses Diagnosis Malignant neoplasm of prostate documented in this encounter Care Teams Drier And Evaporator Operator Relationship Specialty Start Date End Date Alo Carey DO [address] [place] [address] [place] [address] PCP - General Internal Medicine 08/31/20 07/03/23 documented as of this encounter
--- OUTSIDE RECORDS SUMMARY | 2024-03-26 10:38 | XMS_ITS | Encounter Summary ---
[place] [address] Care Team Providers Care Level Vial Inspector Name Role Phone YungAlo santiago Primary Care Provider [phone] Encounter Details Date Type Department Care Team (Late st Contact Info) Description 11/20/2021 Notes [place] [phone] Olena Perez Social History Tobacco Use Types [...] Replacement: Balancing Safety and Effectiveness. ?? Principle Ed Manager: Dr. Chisholm ?? Velos #: [id number] ?? Subject #: [id number] ?? Call placed to subject to follow [...] AM EST Office Visit Hematology/Oncology at [address] [phone] Cl Hess MD [facility] [place] [address] Yessi Renee [address] HEMATOLOGY AND ONCOLOGY [place], [place] [id number] 04/09/2024 10:00 AM EST Infusion Hematology Oncology at [address] [phone] 04/23/2024 9:30 AM EST Office Visit Hematology/Oncology at [address] [phone] Cl Hess MD [facility] [place] [address] HEMATOLOGY AND ONCOLOGY [place], [place] [id number] 04/23/2024 10:00 AM EST Infusion Hematology Oncology at [address] [phone] 05/18/2024 4:30 PM EDT TH Visit (TeleHealth) [place] [address] Malachi Rothman MD [facility] [place] [address] 09/24/2024 9:00 AM EDT Office Visit Radiation Oncology at [address] [phone] Ping Moore PA [facility] [place] [address] documented as of this encounter Visit Diagnoses Not on filedocumented in this encounter Care Teams Level Vial Inspector Relationship Specialty Start Date End Date Alo Carey DO [address] [place] [address] [place] [phone] PCP - General Internal Medicine 08/31/20 07/03/23 documented as of this encounter
--- OUTSIDE RECORDS SUMMARY | 2024-03-26 10:38 | XMS_ITS | Encounter Summary ---
Author Organization [facility] [place] [address] Care Team Providers Care Glass Beveler Name Role Phone Alo Carey Primary Care Provider [phone] Reason for Visit * Reason Onset Date Comments Questions 10/02/2021 Encounter Details Date Type Department Care Team (Late st Contact Info) Description 10/02/2021 Telephone [place] [address] Ismael Wu MD [facility] [place] [address] Questions Social History Tobacco Use Types Packs/Day [...] the need to discuss. Thank you. PH: [phone] documented in this encounter Plan of Treatment Upcoming Encounters Date Type Department Care Team (Late st Contact Info) Description 04/09/2024 9:30 AM EST Office Visit Hematology/Oncology at [address] [phone] Cl Hess MD [facility] [place] [address] Yessi Renee, WOOL P[employer]ER [address] [place] [address] DR [place] [address] 04/09/2024 10:00 AM EST Infusion Hematology Oncology at [address] [phone] 04/23/2024 9:30 AM EST Office Visit Hematology/Oncology at [address] [phone] Cl Hess MD [facility] [place] [address] Yessi Renee APRN [address] [place] [address] DR HEMATOLOGY AND ONCOLOGY [place], [place] [address] 04/23/2024 10:00 AM EST Infusion Hematology Oncology at [address] [phone] 05/18/2024 4:30 PM EDT TH Visit (TeleHealth) [place] [address] Malachi Rothman MD [facility] [place] [address] 09/24/2024 9:00 AM EDT Office Visit Radiation Oncology at [address] [phone] Ping Moore PA [facility] [place] [address] documented as of this encounter Visit Diagnoses Not on filedocumented in this encounter Care Teams Glass Beveler Relationship Specialty Start Date End Date Alo Carey DO [address] [place] [address] [place] [phone] PCP - General Internal Medicine 08/31/20 07/03/23 documented as of this encounter
--- OUTSIDE RECORDS SUMMARY | 2024-03-26 10:38 | XMS_ITS | Encounter Summary ---
Author Organization [facility] [place] [address] Care Team Providers Care Solution Specialist Name Role Phone Cherry Alo Lon RUTHERFORD Primary Care Provider [phone] Reason for Referral * Home Health Care (Routine) - Closed Specialty Diagnoses / Procedures Referred By Marques livingston Referred To Contact Diagnoses Status post total replacement of right hip Ismael Wu MD [facility] [place] [address] [facility]ly [facility], Later [facility] & [address] [address] Referral ID Status Reason Start Date Expiration Date V isits Requested Visits Authorized [id number] Closed Consult, Test & Treat 11/18/2021 05/17/2022 999 999 Reason for Visit * Auth/Cert Specialty Diagnoses / Procedures Referred By Marques livingston Referred To Contact Diagnoses S/P total hip arthroplasty right hip OA Procedures PRO TOTAL HIP ARTHROPLASTY TOTAL HIP ARTHROPLASTY - POSTERIOR (WRVU 20.72) MODIFIER ACTIS HIP STEM DEPUY MODIFIER PINNACLE ACETABULUM DEPUY Ismael Wu MD [facility] [place] [address] [facility] Referral ID Status Reason Start Date Expiration Date Visits Re quested Visits Authorized [id number] 1 1 Encounter Details Date Type Department Care Team (Latest Contact Info) Description 11/17/2021 11:32 AM EDT - 11/18/2021 3:50 PM EDT Hospital Encounter 3 [place] [id number] Ismael Wu MD [facility] [place] [address] Status post total replacement of right hip [...] Wero Sadler Patient Age: 71 y.o. Language: Lithuanian Race: White Ethnicity: Not nor Admit date: 11/17/2021 Discharge date and time: 11/18/2021 Attending Physician: Ismael Wu MD Discharge Physician: Ismael Wu MD Follow-up Recommendations for Providers: See discharge instructions for additional details. Future Appointments Date Time Provider Department Center 12/22/2021 9:15 AM [facility] DX ROOM 3 MH Xray [facility] Rad 12/22/2021 10:00 AM Ismael Wu MD [facility] ORTH 3C [facility] Inpatient Provider Contact Information: Ismael Wu MD Orthopedics: [phone] After hours and weekends, call [facility] Interface Control Officer, , and have the Orthopedic resident paged. [...] vascular procedure at [facility] in [place]: shaking Has tolerated MRI and CT contrast. Immunizations Given this Hospitalization: Immunization History Administered Date(s) Administered ??? Influenza PF, Split (High Dose) 11/21/2020 ??? Moderna Covid-19 (Corn Chip Maker 100mcg) Vaccine 05/20/2020, 06/21/2020, 01/01/2021 ??? Td, [...] concerns regarding this plan, please contact our fiscal specialist at [phone]. Your catheter will stay in until your [...] bowel movement. You can also take an jhye-ged-ljounjf medication, Miralax if needed to combat constipation. [...] as much as possible. Call your doctor ([phone]) if you develop: 1. Fever greater than 100.5 2. Severe nausea or vomiting 3. Increasing pain that is not controlled by pain medications 4. Increasing redness, swelling, or drainage from incisions 5. Change in sensation FOLLOW-UP APPOINTMENTS: 1. You will have follow-up appointments at [facility] as indicated below in Future Appointment and Orders. 2. You will need to have x-rays prior to your follow-up appointment on 12/22. Please come to Radiology, desk , 1 hour BEFORE that appointment for these x-rays. Future Appointments Date Time Provider Department Center 12/22/2021 9:15 AM [facility] DX ROOM 3 MH Xray [facility] Rad 12/22/2021 10:00 AM Ismael Wu MD [facility] ORTH [address] [place] [address] If you have questions or concerns: Saturday through Saturday, 8 AM - 5 PM, please call Dr. Ismael Wu MD's office at . If it is after 5 PM, the weekend, or holidays, please call and ask to speak with theOrthopedic resident on-call. General Instructions None Future Appointments and Orders Future Appointments and Orders Future Appointments Provider Department Dept Phone 12/22/2021 9:15 AM [facility] DX ROOM 3 XRay at [facility] Arrive at: Chief Vendor Quality Area [phone] Please go to [facility]endor Quality Area ([place] Location). 12/22/2021 10:00 AM Ismael Wu MD Orthopaedics at [facility] Arrive at: Chief Vendor Quality Area [phone] Future Orders Complete By Expires Referral to Home Health [REF34 Custom] As directed Process Instructions: If no progress note charted, please enter Clinical details in comments. Scheduling Instructions: Comments: Please evaluate Wero Sadler for admission to Home Health. [address] [facility] [address] (home) Date of : 1950 Inpatient DOCUMENTATION FOR VNA SERVICES (INCLUDING THOSE PATIENTS WITH MEDICARE COVERAGE REQUIRING HOME VNA SERVICES AND/OR HOSPICE SERVICES) Wero Sadler Discharge to own home: [address] [facility] [address] (home) Telephone Information: Pharmacy Technician Inpatient's Name: Wero In discussion with the attending physician, it is certified that this patient is under their care and that they, or a nurse practitioner, clinical nurse specialist or physician's customer marketing assistant who is working directly with them, [...] for services as follows: Home Health Agency: [facility] [address] [place] [id number] Home care orders for Total Hip Replacements: [...] from this patient's PCP: Alo Carey, [address] [place] [address] All A agencies which cover the area of patient's residence have been reviewed, either verbally alberto writing, and patient/family have chosen the home health care agency as noted for home services. Questions: Disciplines Requested: Nursing Physical Therapy Occupational Therapy Primary Care Provider: Alo Carey DO [phone] Discharge References/Attachments None documented in this encounter [...] concerns regarding this plan, please contact our fiscal specialist at [phone]. Your catheter will stay in until your [...] bowel movement. You can also take an iwsd-uzo-smiwzxk medication, Miralax if needed to combat constipation. [...] as much as possible. Call your doctor ([phone]) if you develop: Fever greater than 100.5 Severe nausea or vomiting Increasing pain that is not controlled by pain medications Increasing redness, swelling, or drainage from incisions Change in sensation FOLLOW-UP APPOINTMENTS: 1. You will have follow-up appointments at [facility] as indicated below in Future Appointment and Orders. 2. You will need to have x-rays prior to your follow-up appointment on 12/22. Please come to Radiology, desk 3T, 1 hour BEFORE that appointment for these x-rays. Future Appointments Date Time Provider Department Center 12/22/2021 9:15 AM [facility] DX ROOM 3 MH Xray [facility] Rad 12/22/2021 10:00 AM Ismael Wu MD [facility] ORTH [address] [place] [address] If you have questions or concerns: Saturday through Saturday, 8 AM - 5 PM, please call Dr. Ismael Wu MD's office at . If it is after 5 PM, the weekend, or holidays, please call and ask to speak with theOrthopedic resident on-call. documented in this encounter Medications at Time of Discharge Medication Sig Dispensed Refills Start Date End Date omega 3-yad-fnc-fish oil 250-350-1,000 mg Capsule Take 1,000 mg [...] Colon adenocarcinoma 2009 recieved chemo in [place] ??? Coronary artery disease ??? Coronary artery [...] 9.19) performed by Basim Barr MD at [facility] MAIN OR ??? PRO LASER VAPORIZATION SURGERY PROSTATE, COMPLETE Midline 02/02/2021 CYSTO, LASER TURP (WRVU 12.15) performed by Cayetano Engle MD at [facility] MAIN OR ??? PRO PLACE TRANSCATHETER STENT, CCA W EMBOLIC PROECT Right 07/14/2021 @TRANSCATH INTRAVASCULAR STENT,CAROTID,PERC,W\EMBOLIC PROT. (WRVU 18) performed by Basim Barr MD at [facility] MAIN OR ??? PRO TOTAL HIP ARTHROPLASTY Left 10/10/2020 TOTAL HIP ARTHROPLASTY - POSTERIOR (WRVU 20.72) performed by Ismael Wu MD at [facility] MAIN OR Social History: Patient lives [...] he returns home (planning on staying in [facility] if discharged) Toileting: Transfer: Anticipate supervision due [...] 50.11% limited in ADL performance per the [facility]. However, despite the deficits listed above [...] Minutes, Occupational Therapy: 31 (Low Complexity Eval [id number]) 2017 OT Evaluation Code Rationale: ?? Diagnosis [...] functional outcome. Ping El OT 11/18/2021 Pager: [phone] Occupational Therapy Rehabilitation Department * Nimisha Mahoney [...] 9.19) performed by Basim Barr MD at [facility] MAIN OR ??? PRO LASER VAPORIZATION SURGERY PROSTATE, COMPLETE Midline 02/02/2021 CYSTO, LASER TURP (WRVU 12.15) performed by Cayetano Engle MD at [facility] MAIN OR ??? PRO PLACE TRANSCATHETER STENT, CCA W EMBOLIC PROECT Right 07/14/2021 @TRANSCATH INTRAVASCULAR STENT,CAROTID,PERC,W\EMBOLIC PROT. (WRVU 18) performed by aBsim Barr MD at [facility] MAIN OR ??? PRO TOTAL HIP ARTHROPLASTY Left 10/10/2020 TOTAL HIP ARTHROPLASTY - POSTERIOR (WRVU 20.72) performed by Ismael Wu MD at [facility] MAIN OR Social History: Wero lives [...] low complexity eval Nimisha Mahoney, PT Pager: [phone] Physical Therapy Inpatient Rehabilitation Department * Slim [...] Ophthalmic Prep) 5 % ophthalmic solution ??? CEzwdhmtqik-IZGRWJHklaq-vrjSUKnqh-ketorolac (LISANDRA) (2.46 mg-0.005 mg-0.0008 mg-0.3 mg/mL) cb-articular [...] Time Provider Department Center 12/22/2021 9:15 AM [facility] DX ROOM 3 MH Xray [facility] Rad 12/22/2021 10:00 AM Ismael Wu MD [facility] ORTH 3C [facility] * Floridalma Barron RN - 11/17/2021 9:35 [...] 4 mg ??? lactated ringers infusion ??? BHjmbjlrvdl-DAGCIYSupdz-uhcABAxco-ketorolac (LISANDRA) (2.46 mg-0.005 mg-0.0008 mg-0.3 mg/mL) cb-articular [...] Time Provider Department Center 12/22/2021 9:15 AM [facility] DX ROOM 3 Xray [facility] Rad 12/22/2021 10:00 AM Ismael Wu MD [facility] ORTH 3C [facility] documented in this encounter H&P Notes * [...] properly marked. Charleen Smallwood MD Orthopaedic Surgery [facility] Associated attestation - Ismael Wu MD - [...] Wu MD, MSc Division of Adult Reconstructive RejoinerDensity Control Puncher of Orthopaedics Department of Orthopaedics [facility] [phone] [email or web address] documented in this encounter Procedure Notes [...] COVID test: Lab Results Component Value Date EYOWDUXXXD4H Not Detected 07/19/2021 Past medical History: Past Medical History: Diagnosis Date ??? 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 can not read. can see shadows. No vision in left eye since child saavedra accident. ??? Cancer prostate, colorectal ??? Claudication ??? Colon adenocarcinoma 2009 recieved chemo in [place] ??? Coronary artery disease ??? Coronary artery [...] surrogate would be surrogate decision maker per [place] surrogate decision making law. (Only good for 180 days) Any patient receiving care in [place] must abide by [place] law. The hierarchy for surrogate decision making [...] (i) The agent with financial power of banking attorney or a conservator appointed in accordance [...] wheelchair - manual Home Address confirmed as: [address] [place] [phone] Social & Family Supports: All names listed below confirmed with patient as current and correct Extended Emergency Contact Information Primary Emergency Contact: SAKINAMING FreyNE Address: [address] [place] [address] [facility] Mobile Relation: Significant Other [...] Yes (AARP) ; Prescription Coverage: Preferred Pharmacy: [id number] [place], [place] - [address] [address] [address] [facility] [place] [address] [facility] [address] [address] [facility] [address] [facility] [address] Status: Patient is a : No Primary Care Provider: Alo Carey DO [phone] Patient/Caregiver Goals of Treatment: return home when medically ready for discharge Potential Needs for Transition of Care: home health care Agency Referrals: I have met with the patient to: ?? discuss discharge planning needs. ?? provide the [facility], Office of Care Management letter from the Inclined Railway Operator pertaining to rehabreferrals. ?? provide a letter describing our affiliations within the [facility] and educate about their right to choose where referrals are sent. ?? provide a list of Home Health Agencies / Durable Medical Equipment vendors which serve their preferred geographic area. ?? provided patient with [facility] Star Quality Rating handout. They [facility] [address] [place] [phone] Note routed to a Check Examiner who will communicate referrals to facilities and [...] of care planning. Gissel SANTOS, RN Phone: [phone] Pager: [phone] * Plan of Care - Floridalma Barron [...] stroke, per pt and L eye has residential prosthesis. No acute events overnight. Will continue [...] Wu MD - 11/17/2021 2:05 PM EDT [facility] Operative Note Patient Name: Wero Sadler : [id number] MR#: [id number] Case Date: 11/17/2021 Surgeon: Surgeon(s) and Role: * Ismael Wu MD - Primary * Slim Smallwood MD - Resident Preoperative Diagnosis: Osteoarthritis right Hip Postoperative Diagnosis: Same Procedure Performed: right Total Hip Arthroplasty (CPT code 73468) Anesthesia: Spinal IVF: See anesthesia report Estimated [...] of full thickness cartilage loss. IMPLANTS: System: Executive Channel Femoral Stem: Actis high offset, Size 7; collared, SCOTT coated Acetabulum: Holcomb Sector Gription size 60mm; x2 6.5mm cancellous screws Liner: 60 x 36mm neutral liner Femoral Head: 36mm +8.5mm ceramic head (Please also see the Surgical Encounter Summary for any Implant and Specimen details pertinent to this patient.) Implant Summary in EHR: Implant Name Type Inv. Item Serial No. Shell Sorter Lot No. LRB No. Used Action SHELL ACET HIP 60MM POR CTD MULTI HOLE TI PINNACLE GRIPTION ([id number]) (AUTOREQ) - [id number] IMPLANTS SHELL ACET HIP 60MM POR CTD MULTI HOLE TI PINNACLE GRIPTION ([id number]) (AutoReq) Koko [facility] [id number] Right 1 Implanted LINER ACET HIP [id number] STND POLY PINNACLE ALTRX ([id number]) (AUTOREQ) - [id number] IMPLANTS LINER ACET HIP [id number] STND POLY PINNACLE ALTRX ([id number]) (AutoReq) Chamelic [facility] DARIAN [id number] Right 1 Implanted SCREW HIP ACET 6.5X25MM FT CANC HEX DRV TI PINNACLE ([id number]) (AUTOREQ) - [id number] IMPLANTS SCREWHIP ACET 6.5X25MM FT CANC HEX DRV TI PINNACLE ([id number]) (AutoReq) [employer]amelic [facility] DARIAN [id number] Right 1 Implanted SCREW HIP ACET 6.5X20MM FT CANC HEX DRV TI PINNACLE ([id number]) (AUTOREQ) - [id number] IMPLANTS SCREWHIP ACET 6.5X20MM FT CANC HEX DRV TI PINNACLE ([id number]) (AutoReq) DAE [employer] [facility] DARIAN [id number] Right 1 Implanted STEM FEMORAL HIP SZ 7 PROX 12/14 TAPER POR CLLR HIGH OFST TI ([id number]) (AUTOREQ) - [id number] IMPLANTS STEM FEMORAL HIP SZ 7 PROX 12/14 TAPER POR CLLR HIGH OFST TI ([id number]) (AutoReq) Koko [facility] DARIAN [id number] Right 1 Implanted HEAD FEMORAL HIP 36MM +8.5MM OFFSET 12/14 TPR CERAMIC ([id number]) (AUTOREQ) - [id number] IMPLANTS HEAD FEMORAL HIP 36MM +8.5MM OFFSET 12/14 TPR CERAMIC ([id number]) (AutoReq) Chamelic [facility] DARIAN [id number] Right 1 Implanted PATIENT HISTORY and INDICATIONS [...] ??? Colon adenocarcinoma 2008 recieved chemo in [place] ??? Coronary artery disease ??? Coronary artery [...] and found to be appropriate with good hinduism of leg length and offset. A intraoperative x ray was taken and confirmed appropriate sizing and positioning of implants along with proper hinduism of leg length and offset. The hip [...] patient was then awoken, transferred to the [facility] and taken to the PACU in [...] closing). Ismael Wu MD 11/17/2021 If the customer marketing assistant surgeon is other than a qualified resident, I certify that the services were medically necessary and there was no qualified resident available to perform the services. documented in this encounter Plan of Treatment Upcoming Encounters Date Type Department Care Team (Late st Contact Info) Description 04/09/2024 9:30 AM EST Office Visit Hematology/Oncology at [address] [phone] Cl Hess MD [facility] [place] [address] [address] HEMATOLOGY AND ONCOLOGY [place], [place] [address] 04/09/2024 10:00 AM EST Infusion Hematology Oncology at [address] [phone] 04/23/2024 9:30 AM EST Office Visit Hematology/Oncology at [address] [phone] Cl Hess MD [facility] [place] [address] HEMATOLOGY AND ONCOLOGY [place], [place] [phone] 04/23/2024 10:00 AM EST Infusion Hematology Oncology at [address] [phone] 05/18/2024 4:30 PM EDT TH Visit (TeleHealth) [place] [address] Malachi Rothman MD [facility] [place] [address] 09/24/2024 9:00 AM EDT Office Visit Radiation Oncology at [address] [phone] Ping Moore PA [facility] HEMATOLOGY AND [place] [address] Scheduled Referrals Name Type Priority Associated Diagnoses [...] leg pain Arthroplasty Acetabular/Prox Fem Prostc Agrft/Algrft (08694) 11/17/2021 1:37 PM EDT Primary osteoarthritis of [...] Glucose, POC 182 65 - 199 mg/dL [facility] Comment: Supplemental ranges: <140 mg/dL before meals <180 mg/dL all other times of the day Blood 11/18/2021 11:5 2 AM EDT 11/18/2021 11:52 AM EDT Ismael Wu MD POINT OF CARE TEST ORDERABLES [facility] [place] [address] * POCT Glucose (11/18/2021 7:50 AM EDT) Glucose, POC 159 65 - 199 mg/dL [facility] Comment: Supplemental ranges: <140 mg/dL before meals <180 mg/dL all other times of the day Blood 11/18/2021 7:50 AM EDT 11/18/2021 7:50 AM EDT Ismael Wu MD POINT OF CARE TEST ORDERABLES [facility] [place] [address] * (ABNORMAL) Differential, Automated (11/18/2021 3:20 AM EDT) Neutrophil % 86.1 % [facility] Neutrophil Absolute 8.17(H) 1.70 - 6.10 x10(3)/ L [facility] Lymph % 6.9 % [facility] Lymphocytes Abs 0.7(L) 0.9 - 3.2 x10(3)/ L [facility] Monocyte % 6.5 % [facility] Monocyte Abs 0.6 0.3 - 0.9 x10(3)/[facility] Eos % 0.1 % [facility] Eosinophils Abs 0.0 0.0 - 0.4 x10(3)/[facility] Basophil % 0.1 % [facility] Baso Absolute 0.0 0.0 - 0.1 x10(3)/ L [facility] Immature Gran % 0.30 % [facility] Comment: Immature granulocytes(IG's)percentage and absolute count will include metamyelocytes, myelocytes, and promyelocytes. Blood smears from CBCs yielding IG's will be scanned manually for concordance. If this scan disagrees with the automated IG or if promyelocytes are noted, a manual differential will be performed. Immature Gran Absolute 0.03 0.00 - 0.04 x10(3)/ L [facility] Blood 11/18/2021 3:20 AM EDT 11/18/2021 3:40 AM EDT Narrative Resulting Agency Comment Spec In Lab Slim Smallwood MD HEMATOLOGY ORDERABLE S [facility] [place] [address] * (ABNORMAL) Hemogram (11/18/2021 3:20 AM EDT) [facility] White Blood Cell 9.5 4.0 - 9.5 x10(3)/ L [facility] Red Blood Cell 3.50(L) 4.58 - 5.54 x10(6)/ L [facility] Hemoglobin 11.1(L) 13.7 - 16.5 g/dL [facility] Hematocrit 33.0(L) 40.5 - 48.5 % [facility] Mean Cell Volume 94.3(H) 82.9 - 93.1 fL [facility] Mean Cell Hemoglobin 31.7 27.5 - 32.1 pg [facility] Mean Cell Hemoglobin Concentration 33.6 32.0 - 35.7 g/dL [facility] Platelet 178 145 - 357 x10(3)/ L [facility] RDW Standard Deviation 43.3 36.0 - 45.0 [facility] RDW coefficient of variation 12.6 11.4 - 13.8 % [facility] Mean Platelet Volume 10.1 7.6 - 12.9 [facility] NRBC% auto 0.0 % [facility] NRBC Absolute 0.000 0.000 - 0.000 x10(3)/ L [facility] Blood 11/18/2021 3:20 AM EDT 11/18/2021 3:40 AM EDT Narrative Resulting Agency Comment Spec In Lab Slim Smallwood MD HEMATOLOGY ORDERABLE S [facility] [place] [address] * (ABNORMAL) Basic Metabolic Panel (non-fasting) (11/18/2021 3:20 AM EDT) Glucose 200(H) 65 - 199 mg/dL [facility] Comment:Diabetes: >=200 mg/d L plus symptoms Blood Urea Nitrogen 15 10 - 20 mg/dL [facility] Creatinine 0.65(L) 0.80 - 1.50 mg/dL [facility] Sodium 139 135 - 145 mmol/L [facility] Potassium 4.0 3.5 - 5.0 mmol/L [facility] Comment: Please note: ??Patients with WBC >100,000 may have falsely elevated Potassium levels. ??For accurate Potassium quantification in these patients send serum separator tube (gold top) for subsequent determinations. ??Contact the Clinical Chemistry Laboratory if there are any questions. Chloride 104 98 - 107 mmol/L [facility] Carbon Dioxide 26 22 - 31 mmol/L [facility] Anion Gap 9 5 - 15 mmol/L [facility] Calcium 8.9 8.5 - 10.5 mg/dL [facility] Est Glomerular Filtration Rate 99 >=60 mL/min/1. 73 m?? [facility] Comment: This patient's estimated [...] Lab Ismael Wu MD CHEMISTRY ORDERABLE S [facility] [place] [address] * (ABNORMAL) POCT Glucose (11/18/2021 3:19 AM EDT) Glucose, POC 206(H) 65 - 199 mg/dL [facility] Comment: Supplemental ranges: <140 mg/dL before meals <180 mg/dL all other times of the day Blood 11/18/2021 3:19 AM EDT 11/18/2021 3:19 AM EDT Ismael Wu MD POINT OF CARE TEST ORDERABLES Performing Organization Address [facility] Co de Phone Number [facility] [place] [address] * (ABNORMAL) POCT Glucose (11/18/2021 12:05 AM EDT) Glucose, POC 239(H) 65 - 199 mg/dL [facility] Comment: Supplemental ranges: <140 mg/dL before meals <180 mg/dL all other times of the day Blood 11/18/2021 12:0 5 AM EDT 11/18/2021 12:05 AM EDT Ismael Wu MD POINT OF CARE TEST ORDERABLES Performing Organization Address [facility] de Phone Number [facility] [place] [address] * XR Pelvis (Generic) (11/17/2021 8:01 PM [...] questions please contact the health direct care specialist that requested your imaging first. ? Electronically signed by: Deidra Adams MD, [facility] ([phone]), at 11/18/2021 4:46 PM Narrative 11/18/2021 4:46 [...] have questions please contactthe health direct care specialist that requested your imaging first. Electronically signed by: Deidra Adams MD, [facility]([phone]), at 11/18/2021 4:46 PM Ismael Wu MD IMG DX ORDERABLES * (ABNORMAL) POCT Glucose (11/17/2021 7:43 PM EDT) Glucose, POC 216(H) 65 - 199 mg/dL [facility] Comment: Supplemental ranges: <140 mg/dL before meals <180 mg/dL all other times of the day Blood 11/17/2021 7:43 PM EDT 11/17/2021 7:43 PM EDT Ismael Wu MD POINT OF CARE TEST ORDERABLES [facility] [place] [address] * POCT Glucose (11/17/2021 4:50 PM EDT) Glucose, POC 178 65 - 199 mg/dL [facility] Comment: Supplemental ranges: <140 mg/dL before meals <180 mg/dL all other times of the day Blood 11/17/2021 4:50 PM EDT 11/17/2021 4:50 PM EDT Ismael Wu MD POINT OF CARE TEST ORDERABLES [facility] [place] [address] * POCT Glucose (11/17/2021 1:14 PM EDT) Glucose, POC 134 65 - 199 mg/dL [facility] Comment: Supplemental ranges: <140 mg/dL before meals <180 mg/dL all other times of the day Blood 11/17/2021 1:14 PM EDT 11/17/2021 1:14 PM EDT Ismael Wu MD POINT OF CARE TEST ORDERABLES [facility] [place] [address] * Type and Screen Validity (11/17/2021 1:00 PM EDT) T&S only valid at [facility] LABORATORY Comment:This Type and Screen result is only valid at the [facility] Blood 11/17/2021 1:00 PM EDT 11/17/2021 1:05 PM EDT Narrative Resulting Agency Comment Spec In Lab Eros Fsos MD BLOOD BANK LAB ORDER JOSE FRANCISCO [facility] [place] [address] * ABORH Recheck Status (11/17/2021 1:00 PM EDT) Pathologist [facility] ABORH Type Recheck Completed [facility] Blood 11/17/2021 1:00 PM EDT 11/17/2021 1:05 PM EDT Narrative Resulting Agency Comment Spec In Lab Eros Foss MD BLOOD BANK LAB ORDER JOSE FRANCISCO [facility] [place] [address] * Antibody screen (11/17/2021 1:00 PM EDT) Ab Screen Interp Negative [facility] Expires at 2359 on: 11/20/2021 [facility] Blood 11/17/2021 1:00 PM EDT 11/17/2021 1:05 PM EDT Narrative Resulting Agency Comment Spec In Lab Eros Foss MD BLOOD BANK LAB ORDER JOSE FRANCISCO [facility] [place] [address] * ABO/Rh Typing (11/17/2021 1:00 PM EDT) ABORH Type O Pos [facility] Blood 11/17/2021 1:00 PM EDT 11/17/2021 1:05 PM EDT Narrative Resulting Agency Comment Spec In Lab Eros Foss MD BLOOD BANK LAB ORDER JOSE FRANCISCO [facility] [place] [address] * (ABNORMAL) Hemogram (11/17/2021 1:00 PM EDT) White Blood Cell 3.4(L) 4.0 - 9.5 x10(3)/[facility] LABORATORY Red Blood Cell 3.74(L) 4.58 - 5.54 x10(6)/mc L [facility] Hemoglobin 11.8(L) 13.7 - 16.5 g/dL [facility] Hematocrit 34.7(L) 40.5 - 48.5 % [facility] Mean Cell Volume 92.8 82.9 - 93.1 fL [facility] Mean Cell Hemoglobin 31.6 27.5 - 32.1 pg [facility] Mean Cell Hemoglobin Concentration 34.0 32.0 - 35.7 g/dL [facility] Platelet 159 145 - 357 x10(3)/mc L [facility] RDW Standard Deviation 43.9 36.0 - 45.0 [facility] LABORATORY RDW coefficient of variation 13.0 11.4 - 13.8 % [facility] Mean Platelet Volume 9.7 7.6 - 12.9 fL [facility] NRBC% auto 0.0 % [facility] NRBC Absolute 0.000 0.000 - 0.000 x10(3)/mc L [facility] Blood 11/17/2021 1:00 PM EDT 11/17/2021 1:10 PM EDT Narrative Resulting Agency Comment Spec In Lab Ismael Wu MD HEMATOLOGY ORDERABL ES [facility] [place] [address] * SCAN DOC: IMPLANTABLE DEVICES (11/17/2021 12:00 [...] Last dose on 11/18/21 at 2100, Routine Given 11/17/2021 10:06 PM [...] PRN, Starting on Sat11/17/21 at 1906, Until Sat11/18/21 at 1826, Pain, mild pain (1-3), May [...] Floridalma Barron RN)1434 (Given - Provider: Mariana Villafuerte, AYE) amLODIPine [...] 220 (Given - Provider: Floridalma Barron RN) carvediloL [...] Last dose on Sat11/18/21 at 2100, Routine 220 (Given - Provider: Floridalma Barron, RN) glimepiride (Amaryl) tablet 1 mg 1 mg, Oral, DAILY WITH BREAKFAST, First dose on Sat11/18/21 at 0800, Until Discontinued, Consider holding dose if patient is not eating., Routine 902 (Given - Provid er: Mariana Villafuerte RN) hydrALAZINE (Apresoline) (20 mg/mL) injection 5 mg (COMPLETED) 5 mg, Intravenous, ONCE, 1 dose, On Sat11/17/21 at 2315 2246 (Given - Provider: Floridalma Barron, AYE) insulin lispro (HumaLOG;Admelog) (100 unit/mL) subcutaneous [...] Unit), Routine 2215 (Given - Provider: Floridalma Barron, AYE) 0910 (Given - Provider: Mariana Villafuerte RN) sodium chloride 0.9% 500 mL IV bolus (COMPLETED) Intravenous, ONCE, 1 dose, On 11/18/21 at 1315 1226 (New Bag - Provider: Mariana Villafuerte RN) tamsulosin (Flomax) capsule 0.4 mg 0.4 mg, Oral, NIGHTLY, First dose on Sat11/17/21 at 2200, Until Discontinued, DO NOT CRUSH OR OPEN, Routine 2206 (Given - Provider: Floridalma Barron RN) timoloL [...] Floridalma Barron, RN)0649 (Given - Provider: Floridalma Barron RN) [...] Barron, RN)1026 (Given - Provider: Mariana Villafuerte, RN) oxyCODONE (Roxicodone) tablet 15 mg(Linked Group [...] RN) 015 (See Alternative - Provider: Floridalma Barron RN)1026 (See Alternative - Provider: Mariana Villafuerte RN) povidone-iodine (Betadine Ophthalmic Prep) 5 % ophthalmic solution (CANCELED) ONCE PRN, Starting on Sat11/17/21 at 1407, Until 11/18/21 at 1826, Intra-Operative (Intra-Procedure), Routine 1407 (Given - Provider: Ismael Wu MD - Comment: added to 500ml NACL for irrigation) AZdjdbkyagp-[id number] oNIDine-ketorolac (LISANDRA) (2.46 mg-0.005 mg-0.0008 mg-0.3 mg/mL) [...] Routine documented in this encounter Care Teams Solution Specialist Relationship Specialty Start Date End Date Alo Carey DO [address] [place] [address] [place] [address] PCP - General Internal Medicine 08/31/20 07/03/23 documented as of this encounter
--- OUTSIDE RECORDS SUMMARY | 2024-03-26 10:38 | XMS_ITS | Encounter Summary ---
[place] [address] Care Team Providers Care Charge Account Clerk Name Role Phone YungAlo santiago Primary Care Provider [phone] Reason for Visit * Reason Comments Injections Lupron Encounter Details Date Type Department Care Team (Late st Contact Info) Description 09/21/2021 1:30 PM EDT Infusion Hematology Oncology at [address] [phone] Carcinoma of prostate Social History [...] AM EST Office Visit Hematology/Oncology at [address] [phone] Cl Hess MD [facility] [place] [address] Yessi Renee, [address] HEMATOLOGY AND ONCOLOGY [place], [place] [address] 04/09/2024 10:00 AM EST Infusion Hematology Oncology at [address] [phone] 04/23/2024 9:30 AM EST Office Visit Hematology/Oncology at [address] [phone] Cl Hess MD [facility] [place] [place] [address] [address] HEMATOLOGY AND ONCOLOGY [place], [place] [address] 04/23/2024 10:00 AM EST Infusion Hematology Oncology at [address] [phone] 05/18/2024 4:30 PM EDT TH Visit (TeleHealth) [place] [address] Malachi Rothman MD [facility] [place] [address] 09/24/2024 9:00 AM EDT Office Visit Radiation Oncology at [address] [phone] Ping Moore PA [facility] DR [place] [address] documented as of this encounter Visit Diagnoses [...] Gluteal documented in this encounter Care Teams Charge Account Clerk Relationship Specialty Start Date End Date Alo Carey DO [address] [place] [address] [place] [address] PCP - General Internal Medicine 08/31/20 07/03/23 documented as of this encounter
--- OUTSIDE RECORDS SUMMARY | 2024-03-26 10:38 | XMS_ITS | Encounter Summary ---
[place] [address] Care Team Providers Care Biomedical Manager Name Role Phone YungAlo santiago Primary Care Provider [phone] Reason for Visit * Reason Onset Date Comments Pre Procedure Call 11/14/2021 Encounter Details Date Type Department Care Team (Late st Contact Info) Description 11/14/2021 Telephone [place] [phone] Ismael Wu MD [facility] DR ORTHOP[place] [address] Pre Procedure Call Social History Tobacco Use [...] is calling? MARIAN Best call back number: [phone] Best time to call back between 8:00 [...] AM EST Office Visit Hematology/Oncology at [address] [phone] Cl Hess MD [facility] [place] [address] [address] HEMATOLOGY [place] [address] 04/09/2024 10:00 AM EST Infusion Hematology Oncology at [address] [phone] 04/23/2024 9:30 AM EST Office Visit Hematology/Oncology at [address] [phone] Cl Hess MD [facility] [place] [address] [address] HEMATOLOGY [place] [address] 04/23/2024 10:00 AM EST Infusion Hematology Oncology at [address] [phone] 05/18/2024 4:30 PM EDT TH Visit (TeleHealth) Radiation [place] [address] Malachi Rothman MD [facility] DR [place] [address] 09/24/2024 9:00 AM EDT Office Visit Radiation Oncology at [address] [phone] Ping Moore PA [facility] DR HEMATOLOGY [place] [address] documented as of this encounter Visit Diagnoses Not on filedocumented in this encounter Care Teams Biomedical Manager Relationship Specialty Start Date End Date Alo Carey DO [address] [place] [address] [place] [phone] PCP - General Internal Medicine 08/31/20 07/03/23 documented as of this encounter
--- OUTSIDE RECORDS SUMMARY | 2024-03-26 10:38 | XMS_ITS | Encounter Summary ---
[place] [address] Care Team Providers Care Menswear Salesperson Name Role Phone Alo Carey Primary Care Provider [phone] Encounter Details Date Type Department Care Team (Late st Contact Info) Description 09/01/2021 Telephone [place] [phone] Erika Carranza RN Social History Tobacco Use [...] AM EST Office Visit Hematology/Oncology at [address] [phone] Cl Hess MD [facility] [place] [address] HEMATOLOGY AND ONCOLOGY [place], [place] [phone] 04/09/2024 10:00 AM EST Infusion Hematology Oncology at [address] [phone] 04/23/2024 9:30 AM EST Office Visit Hematology/Oncology at [address] [phone] Cl Hess MD [facility] [place] [address] [address] HEMATOLOGY AND ONCOLOGY [place], [place] [phone] 04/23/2024 10:00 AM EST Infusion Hematology Oncology at [address] [phone] 05/18/2024 4:30 PM EDT TH Visit (TeleHealth) [place] [address] Malachi Rothman MD [facility] [address] 09/24/2024 9:00 AM EDT Office Visit Radiation Oncology at [address] [phone] Ping Moore PA [facility] DR [place] [address] documented as of this encounter Visit Diagnoses Not on filedocumented in this encounter Care Teams Menswear Salesperson Relationship Specialty Start Date End Date Alo Carey DO [address] [place] [address] [place] [phone] PCP - General Internal Medicine 08/31/20 07/03/23 documented as of this encounter
--- OUTSIDE RECORDS SUMMARY | 2024-03-26 10:38 | XMS_ITS | Encounter Summary ---
[place] [address] Care Team Providers Care Electrical Test Technician Name Role Phone Alo Carey Primary Care Provider [phone] Encounter Details Date Type Department Care Team (Late st Contact Info) Description 08/24/2021 1:00 PM EDT Office Visit Radiation Oncology at [address] [phone] Bigg Peters MD [address] [place] [address] [place] [address] Malignant neoplasm of prostate Social [...] from the original note were not included. [facility] Medicine Radiation Oncology Radiation Oncology On-treatment Visit [...] placed in this encounter. ??? National Cancer [place] (NCI) Comprehensive Cancer Center ??? [employer] Commission on Cancer (ACS Joanna) Accredited Cancer Program ??? [employer] (ACR) Accredited Radiation Oncology Program documented in this encounter Plan of Treatment Upcoming Encounters Date Type Department Care Team (Late st Contact Info) Description 04/09/2024 9:30 AM EST Office Visit Hematology/Oncology at [address] [phone] Cl Hess MD [facility] [place] [address] [address] HEMATOLOGY AND ONCOLOGY [place], [place] [address] 04/09/2024 10:00 AM EST Infusion Hematology Oncology at [address] [phone] 04/23/2024 9:30 AM EST Office Visit Hematology/Oncology at [address] [phone] Cl Hess MD [facility] [place] [address] [address] HEMATOLOGY AND ONCOLOGY [place], [place] [address] 04/23/2024 10:00 AM EST Infusion Hematology Oncology at [address] [phone] 05/18/2024 4:30 PM EDT TH Visit (TeleHealth) [place] [address] Malachi Rothman MD [facility] [place] [address] 09/24/2024 9:00 AM EDT Office Visit Radiation Oncology at [address] [phone] Ping Moore PA [facility] DR [place] [address] documented as of this encounter Visit Diagnoses Diagnosis Malignant neoplasm of prostate documented in this encounter Care Teams Electrical Test Technician Relationship Specialty Start Date End Date Alo Carey DO [address] [place] [address] [place] [phone] PCP - General Internal Medicine 08/31/20 07/03/23 documented as of this encounter
--- OUTSIDE RECORDS SUMMARY | 2024-03-26 10:38 | XMS_ITS | Encounter Summary ---
[place] [address] Care Team Providers Care Clay Maker Name Role Phone YungAlo santiago Primary Care Provider Reason for Visit * Reason Onset Date Comments Pre Procedure Call 10/02/2021 Encounter Details Date Type Department Care Team (Late st Contact Info) Description 10/02/2021 Telephone [place] [phone] Ismael Wu MD [facility] [place] [address] Pre Procedure Call Social History Tobacco Use [...] is calling? MARIAN Best call back number: [phone] Best time to call back between 8:00 [...] scheduled. He will be flying in to [place] [facility] [place] on 10/10/21[facility] AM EST Office Visit Hematology/Oncology at [address] [phone] Cl Hess MD [facility] [place] [address] Yessi Renee APRN [address] [place] [address] DR [place] [address] 04/09/2024 10:00 AM EST Infusion Hematology Oncology at [address] [phone] 04/23/2024 9:30 AM EST Office Visit Hematology/Oncology at [address] [phone] Cl Hess MD [facility] [place] [address] Yessi Renee APRN [address] [place] [address] DR HEMATOLOGY AND ONCOLOGY [place], [place] [address] 04/23/2024 10:00 AM EST Infusion Hematology Oncology at [address] [phone] 05/18/2024 4:30 PM EDT TH Visit (TeleHealth) [place] [address] Malachi Rothman MD [facility] [place] [address] 09/24/2024 9:00 AM EDT Office Visit Radiation Oncology at [address] [phone] Ping Moore PA [facility] [place] [address] documented as of this encounter Visit Diagnoses Not on filedocumented in this encounter Care Teams Clay Maker Relationship Specialty Start Date End Date Alo Carey DO [address] [place] [address] [place] [address] PCP - General Internal Medicine 08/31/20 07/03/23 documented as of this encounter
--- OUTSIDE RECORDS SUMMARY | 2024-03-26 10:38 | XMS_ITS | Encounter Summary ---
[place] [address] Care Team Providers Care Template Layout Worker Name Role Phone Alo Carey DO Primary Care Provider [phone] Encounter Details Date Type Department Care Team (Late st Contact Info) Description 09/06/2021 12:45 PM EDT Notes Only Radiation Oncology at [address] [phone] Alonso Peters MD [address] [place] [address] [place] [address] Social History Tobacco Use Types [...] [facility] Medicine Radiation Oncology Radiation Therapy Completion Note [...] plan: Follow-up visit with Radiation Oncology in [facility] is scheduled for 09/21/21 for routine post-procedural symptom check; he has received instructions to call this office or seek the help of the local emergency room if any further problems should arise prior to followup. ALONSO PETERS MD 09/07/2021 ??? National Cancer [place] (NCI) Comprehensive Cancer Center ??? [employer] Commission on Cancer (ACS Joanna) Accredited Cancer Program ??? [employer] (ACR) Accredited Radiation Oncology Program documented in this encounter Plan of Treatment Upcoming Encounters Date Type Department Care Team (Late st Contact Info) Description 04/09/2024 9:30 AM EST Office Visit Hematology/Oncology at [address] [phone] Cl Hess MD [facility] [place] [address] HEMATOLOGY AND ONCOLOGY [place], [place] [phone] 04/09/2024 10:00 AM EST Infusion Hematology Oncology at [address] [phone] 04/23/2024 9:30 AM EST Office Visit Hematology/Oncology at [address] [phone] Cl Hess MD [facility] [place] [address] [address] HEMATOLOGY AND ONCOLOGY [place], [place] [address] 04/23/2024 10:00 AM EST Infusion Hematology Oncology at [address] [phone] 05/18/2024 4:30 PM EDT TH Visit (TeleHealth) [place] [address] Malachi Rothman MD [facility] [address] 09/24/2024 9:00 AM EDT Office Visit Radiation Oncology at [address] [phone] Ping Moore PA [facility] [place] [address] documented as of this encounter Visit Diagnoses Not on filedocumented in this encounter Care Teams Template Layout Worker Relationship Specialty Start Date End Date Alo Carey DO [address] [place] [address] [place] [id number] PCP - General Internal Medicine 08/31/20 07/03/23 documented as of this encounter
--- OUTSIDE RECORDS SUMMARY | 2024-03-26 10:38 | XMS_ITS | Encounter Summary ---
[place] [address] Care Team Providers Care Legal Archivist Name Role Phone YungAlo santiago Primary Care Provider [phone] Reason for Visit * Reason Comments Medication Refill Encounter Details Date Type Department Care Team (Late Contact Info) Description 04/09/2022 Refill Radiation Oncology at [address] [phone] Bigg Peters MD [address] [place] [address] [place] [address] Malignant neoplasm [...] AM EST Office Visit Hematology/Oncology at [address] [phone] Cl Hess MD [facility] [place] [address] [address] HEMATOLOGY AND ONCOLOGY [place], [place] [phone] 04/09/2024 10:00 AM EST Infusion Hematology Oncology at [address] [phone] 04/23/2024 9:30 AM EST Office Visit Hematology/Oncology at [address] [phone] Cl Hess MD [facility] [place] [address] Yessi Renee, [address] HEMATOLOGY AND ONCOLOGY [place], [place] [phone] 04/23/2024 10:00 AM EST Infusion Hematology Oncology at [address] [phone] 05/18/2024 4:30 PM EDT TH Visit (TeleHealth) [place] [address] Malachi Rothman MD [facility] [address] 09/24/2024 9:00 AM EDT Office Visit Radiation Oncology at [address] [phone] Ping Moore PA [facility] DR [place] [address] documented as of this encounter Visit Diagnoses Diagnosis Malignant neoplasm of prostate documented in this encounter Care Teams Legal Archivist Relationship Specialty Start Date End Date Alo Carey DO [address] [place] [address] [place] [phone] PCP - General Internal Medicine 08/31/20 07/03/23 documented as of this encounter
--- OUTSIDE RECORDS SUMMARY | 2024-03-26 10:38 | XMS_ITS | Encounter Summary ---
[place] [address] Care Team Providers Care Web Designer Name Role Phone Alo Carey DO Primary Care Provider [phone] Reason for Referral * Consultation (Routine) - Closed Specialty Diagnoses / Procedures Referred By Marques livingston Referred To Contact Diagnoses History of cerebrovascular accident Basim Barr MD [facility] [place] [address] Eye Care, [address] [place] [address] Referral ID Status Reason Start Date Expiration Date V isits Requested Visits Authorized [id number] Closed Consult, Test & Treat 08/28/2021 02/24/2022 5 5 Encounter Details Date Type Department Care Team (Late st Contact Info) Description 08/28/2021 Orders [place] [address] Yessi Walter RN History of cerebrovascular accident [...] AM EST Office Visit Hematology/Oncology at [address] [phone] Cl Hess MD [facility] [place] [address] Yessi Renee [address] HEMATOLOGY AND ONCOLOGY [place], [place] [phone] 04/09/2024 10:00 AM EST Infusion Hematology Oncology at [address] [phone] 04/23/2024 9:30 AM EST Office Visit Hematology/Oncology at [address] [phone] Cl Hess MD [facility] [place] [address] [address] [place] [address] 04/23/2024 10:00 AM EST Infusion Hematology Oncology at [address] [phone] 05/18/2024 4:30 PM EDT TH Visit (TeleHealth) [place] [address] Malachi Rothman MD [facility] [place] [address] 09/24/2024 9:00 AM EDT Office Visit Radiation Oncology at [address] [address] Ping Moore PA [facility] [place] [address] Scheduled Referrals Name Type Priority Associated Diagnoses Orde r Schedule Referral to Ophthalmology Outpatient Referral Routine History of cerebrovascular accident Ordered: 08/28/2021 documented as of this encounter Visit Diagnoses Diagnosis History of cerebrovascular accident Transient ischemic attack (TIA), and cerebral infarction without residual deficits documented in this encounter Care Teams Web Designer Relationship Specialty Start Date End Date Alo Carey DO [address] [place] [address] [place] [address] PCP - General Internal Medicine 08/31/20 07/03/23 documented as of this encounter
--- OUTSIDE RECORDS SUMMARY | 2024-03-26 10:39 | XMS_ITS | Encounter Summary ---
Author Organization [facility] [place] [address] Care Team Providers Care Housing Assistant Property Manager Name Role Phone Alo Carey DO Primary Care Provider [phone] Encounter Details Date Type Department Care Team (Late st Contact Info) Description 07/18/2021 10:05 PM EDT Ancillary Procedure Radiology Library at [facility] [place] [phone] Social History Tobacco Use Types Packs/Day Years [...] AM EST Office Visit Hematology/Oncology at [address] [phone] Cl Hess MD [facility] [place] [address] [address] HEMATOLOGY AND ONCOLOGY [place], [place] [phone] 04/09/2024 10:00 AM EST Infusion Hematology Oncology at [address] [phone] 04/23/2024 9:30 AM EST Office Visit Hematology/Oncology at [address] [phone] lC Hess MD [facility] [place] [address] [address] HEMATOLOGY AND ONCOLOGY [place], [place] [phone] 04/23/2024 10:00 AM EST Infusion Hematology Oncology at [address] [phone] 05/18/2024 4:30 PM EDT TH Visit (TeleHealth) [place] [address] Malachi Rothman MD [facility] [place] [address] 09/24/2024 9:00 AM EDT Office Visit Radiation Oncology at [address] [phone] Ping Moore PA [facility] [place] [address] documented as of this encounter Procedures Procedure [...] who have questions please contact the health family day carer that requested your imaging first. ? Narrative 07/19/2021 8:15 AM EDT EXAMINATION: REQUEST FOR 2ND READ CT HEAD AND SPINE CLINICAL HISTORY: AMS and visual hallucinations. Recent R ICA TCAR 07/14, Please compare with earlier Head CT; Sending Institution [facility]; Date of exam [id number]; I believe a reinterpretation of this exam may alter care of Patient. Yes TECHNIQUE: CTA carotids and [place] performed following the intravenous administration of 100 mL Omnipaque 350. Study was performed at [facility] on 07/18/2021 COMPARISON: Angiogram images [...] careof Patient. Yes TECHNIQUE: CTA carotids and [place] performed following theintravenous administration of [...] patients who have questions please contactthe health family day carer that requested your imaging first. Electronically signed by: Andrew Canseco MD, [facility]([phone]), at 07/19/2021 8:15 AM Salome Rodriguez CHEMISTRY SPECIALIST IMG OUTSIDE INTERPRE TATION ORDERABLES documented in this encounter Visit Diagnoses Not on filedocumented in this encounter Care Teams Housing Assistant Property Manager Relationship Specialty Start Date End Date Alo Carey DO [address] [place] [address] [place] [phone] PCP - General Internal Medicine 08/31/20 07/03/23 documented as of this encounter
--- OUTSIDE RECORDS SUMMARY | 2024-03-26 10:39 | XMS_ITS | Encounter Summary ---
Author Organization [facility] Address [facility] [place] [address] Care Team Providers Care Lay Health Advocate Name Role Phone Alo Carey DO Primary Care Provider [phone] Encounter Details Date Type Department Care Team (Late st Contact Info) Description 08/04/2021 1:15 PM EDT Office Visit Radiation Oncology at [address] [phone] Cl Mcbride MD [facility] [place] [address] Malignant neoplasm of prostate Social History Tobacco [...] from the original note were not included. [facility] Medicine Radiation Oncology Radiation Oncology On-treatment [...] bite. Looking forward to dancing and singing [email or web address] celebration this weekend. GI Diarrhea - attributes [...] to bed or chair Medications Medications 08/04/21 6457 Medication Sig Taking? folic acid (Folvite) 1 [...] placed in this encounter. ??? National Cancer [employer] (NCI) Comprehensive Cancer Center ??? [employer] Commission on Cancer (ACS Joanna) Accredited Cancer Program ??? [employer] (ACR) Accredited Radiation Oncology Program documented in this encounter Plan of Treatment Upcoming Encounters Date Type Department Care Team (Late st Contact Info) Description 04/09/2024 9:30 AM EST Office Visit Hematology/Oncology at [address] [phone] Cl Hess MD [facility] [place] [address] Yessi Renee APRN [address] [place] [address] DR HEMATOLOGY AND ONCOLOGY [place], [place] [phone] 04/09/2024 10:00 AM EST Infusion Hematology Oncology at [address] [phone] 04/23/2024 9:30 AM EST Office Visit Hematology/Oncology at [address] [phone] Cl Hess MD [facility] [place] [address] Yessi Renee APRN [address] [place] [address] DR HEMATOLOGY AND ONCOLOGY [place], [place] [address] 04/23/2024 10:00 AM EST Infusion Hematology Oncology at [address] [phone] 05/18/2024 4:30 PM EDT TH Visit (TeleHealth) [place] [address] Malachi Rothman MD [facility] [place] [address] 09/24/2024 9:00 AM EDT Office Visit Radiation Oncology at [address] [phone] Ping Moore PA [facility] DR HEMATOLOGY [place] [address] documented as of this encounter Visit Diagnoses Diagnosis Malignant neoplasm of prostate documented in this encounter Care Teams Lay Health Advocate Relationship Specialty Start Date End Date Alo aCrey DO [address] [place] [address] [place] [phone] PCP - General Internal Medicine 08/31/20 07/03/23 documented as of this encounter
--- OUTSIDE RECORDS SUMMARY | 2024-03-26 10:39 | XMS_ITS | Encounter Summary ---
[place] [address] Care Team Providers Care Pickle Processor Name Role Phone YungAlo santiago Primary Care Provider [phone] Encounter Details Date Type Department Care Team (Latest Contact Info) Description 08/15/2021 8:30 AM EDT Tech Visit [place] [phone] Lizeth Gracia Stenosis of carotid artery, unspecified [...] AM EST Office Visit Hematology/Oncology at [address] [phone] Cl Hess MD [facility] [place] [address] [address] HEMATOLOGY AND ONCOLOGY [place], [place] [phone] 04/09/2024 10:00 AM EST Infusion Hematology Oncology at [address] [phone] 04/23/2024 9:30 AM EST Office Visit Hematology/Oncology at [address] [phone] Cl Hess MD [facility] [place] [address] [address] HEMATOLOGY AND ONCOLOGY [place], [place] [address] 04/23/2024 10:00 AM EST Infusion Hematology Oncology at [address] [phone] 05/18/2024 4:30 PM EDT TH Visit (TeleHealth) [place] [address] Malachi Rothman MD [facility] [place] [address] 09/24/2024 9:00 AM EDT Office Visit Radiation Oncology at [address] [phone] Ping Moore PA [facility] DR [place] [address] documented as of this encounter Procedures Procedure Name Priority Date/Time Associated Diagnosis Comments CAROTID DUPLEX, BILATERAL Routine 08/15/2021 8:29 AM EDT Stenosis of carotid artery, unspecified laterality History of cerebrovascular accident History of carotid endarterectomy documented in this encounter Results * Carotid Duplex, Bilateral (08/15/2021 8:29 AM EDT) VB Text Report Department: Vascular Surgery Lab Patient: [id number] (THA SADLER) CPT: 55948 Referring Physician: AL HUERTA ?? Phone: Indications: [...] status documented in this encounter Care Teams Pickle Processor Relationship Specialty Start Date End Date Alo Carey DO [address] [place] [address] [place] [address] PCP - General Internal Medicine 08/31/20 07/03/23 documented as of this encounter
--- OUTSIDE RECORDS SUMMARY | 2024-03-26 10:39 | XMS_ITS | Encounter Summary ---
Author Organization [facility] [place] [address] Care Team Providers Care Metal Tube Cutter Name Role Phone Alo Carey DO Primary Care Provider [phone] Encounter Details Date Type Department Care Team (Late st Contact Info) Description 07/18/2021 12:30 PM EDT Telehealth notes [place] [address] Telehealth, Neurology None Social History Tobacco Use [...] AM EST Office Visit Hematology/Oncology at [address] [phone] [facility] [place] [address] [address] HEMATOLOGY AND ONCOLOGY [place], [place] [address] 04/09/2024 10:00 AM EST Infusion Hematology Oncology at [address] [phone] 04/23/2024 9:30 AM EST Office Visit Hematology/Oncology at [address] [phone] [facility] [place] [address] [address] HEMATOLOGY AND ONCOLOGY [place], [place] [address] 04/23/2024 10:00 AM EST Infusion Hematology Oncology at [address] [phone] 05/18/2024 4:30 PM EDT TH Visit (TeleHealth) [place] [address] [facility] [place] [address] 09/24/2024 9:00 AM EDT Office Visit Radiation Oncology at [address] [phone] [facility] DR [place] [address] documented as of this encounter Visit Diagnoses Not on filedocumented in this encounter Care Teams Metal Tube Cutter Relationship Specialty Start Date End Date Alo Carey DO [address] [place] [address] [place] [address] PCP - General Internal Medicine 08/31/20 07/03/23 documented as of this encounter
--- OUTSIDE RECORDS SUMMARY | 2024-03-26 10:39 | XMS_ITS | Encounter Summary ---
[place] [address] Care Team Providers Care Water Pump Operator Name Role Phone Alo Carey Primary Care Provider [phone] Encounter Details Date Type Department Care Team (Late st Contact Info) Description 07/18/2021 Telephone [place] [address] Milton Saldana MD Social History [...] I offered to see him here at [facility], thepatient's brother stated that they are only a [address] from [facility] (and over 100 miles from [facility]) so will proceed there first. Milton Saldana MD Vascular Surgery Resident documented in this encounter Plan of Treatment Upcoming Encounters Date Type Department Care Team (Late st Contact Info) Description 04/09/2024 9:30 AM EST Office Visit Hematology/Oncology at [address] [phone] Cl Hess MD [facility] [place] [address] [address] [place] [address] 04/09/2024 10:00 AM EST Infusion Hematology Oncology at [address] [phone] 04/23/2024 9:30 AM EST Office Visit Hematology/Oncology at [address] [phone] Cl Hess MD [facility] [place] [address] Yess[address] Renee [address] HEMATOLOGY AND ONCOLOGY [place], [place] [address] 04/23/2024 10:00 AM EST Infusion Hematology Oncology at [address] [phone] 05/18/2024 4:30 PM EDT TH Visit (TeleHealth) [place] [address] Malachi Rothman MD [facility] [place] [address] 09/24/2024 9:00 AM EDT Office Visit Radiation Oncology at [address] [phone] Ping Moore PA [facility] [place] [address] documented as of this encounter Visit Diagnoses Not on filedocumented in this encounter Care Teams Water Pump Operator Relationship Specialty Start Date End Date Alo Carey DO [address] [place] [address] [place] [phone] PCP - General Internal Medicine 08/31/20 07/03/23 documented as of this encounter
--- OUTSIDE RECORDS SUMMARY | 2024-03-26 10:39 | XMS_ITS | Encounter Summary ---
Author Organization [facility] [place] [address] Care Team Providers Care Shop Manager Name Role Phone Alo Carey DO Primary Care Provider [phone] Encounter Details Date Type Department Care Team (Late st Contact Info) Description 07/18/2021 12:05 PM EDT Ancillary Procedure Radiology Library at [facility] [place] [address] Alo Carey DO [address] [place] [phone] Social History Tobacco Use Types Packs/Day [...] AM EST Office Visit Hematology/Oncology at [address] [phone] Cl Hess MD [facility] [place] [address] HEMATOLOGY AND ONCOLOGY [place], [place] [phone] 04/09/2024 10:00 AM EST Infusion Hematology Oncology at [address] [phone] 04/23/2024 9:30 AM EST Office Visit Hematology/Oncology at [address] [phone] Cl Hess MD [facility] [place] [address] [address] HEMATOLOGY AND ONCOLOGY [place], [place] [phone] 04/23/2024 10:00 AM EST Infusion Hematology Oncology at [address] [phone] 05/18/2024 4:30 PM EDT TH Visit (TeleHealth) [place] [address] Malachi Rothman MD [facility] [place] [address] 09/24/2024 9:00 AM EDT Office Visit Radiation Oncology at [address] [phone] Ping Moore PA [facility] [place] [address] documented as of this encounter Procedures Procedure Name Priority Date/Time Associated Diagnosis Comments FILM LIBRARY STORAGE ONLY DX CHEST Routine 07/18/2021 11:57 AM EDT documented in this encounter Results * Film Library- Storage Only DX Chest (07/18/2021 11:57 AM EDT) Narrative RAD - 07/18/2021 11:57 AM EDT This exam is auto-finalizing. It's purpose is for storage only. Alo Carey DO [facility] FILM LIBRARY ORD ERABLES Performing Organization Address City/State/[facility] Co de Phone Number [place], [place] documented in this encounter Visit Diagnoses Not on filedocumented in this encounter Care Teams Shop Manager Relationship Specialty Start Date End Date Alo Carey DO [address] [place] [address] [place] [address] PCP - General Internal Medicine 08/31/20 07/03/23 documented as of this encounter
--- OUTSIDE RECORDS SUMMARY | 2024-03-26 10:39 | XMS_ITS | Encounter Summary ---
[place] [address] Care Team Providers Care Automotive Product Specialist Name Role Phone Alo Carey DO Primary Care Provider [phone] Reason for Visit * Reason Onset Date Comments Medication Problem 07/24/2021 Encounter Details Date Type Department Care Team (Late st Contact Info) Description 07/24/2021 Telephone [place] [phone] Sandra Murphy MD Medication Problem Social History [...] AM EST Office Visit Hematology/Oncology at [address] [phone] Cl Hess MD [facility] [address] [address] [place] [address] 04/09/2024 10:00 AM EST Infusion Hematology Oncology at [address] [phone] 04/23/2024 9:30 AM EST Office Visit Hematology/Oncology at [address] [phone] Cl Hess MD [facility] [address] [address] [place] [address] 04/23/2024 10:00 AM EST Infusion Hematology Oncology at [address] [phone] 05/18/2024 4:30 PM EDT TH Visit (TeleHealth) [place] [address] Malachi Rothman MD [facility] [place] [address] 09/24/2024 9:00 AM EDT Office Visit Radiation Oncology at [address] [phone] Ping Moore PA [facility] DR [place] [address] documented as of this encounter Visit Diagnoses Not on filedocumented in this encounter Care Teams Automotive Product Specialist Relationship Specialty Start Date End Date Alo Carey DO [address] [place] [address] [place] [address] PCP - General Internal Medicine 08/31/20 07/03/23 documented as of this encounter
--- OUTSIDE RECORDS SUMMARY | 2024-03-26 10:39 | XMS_ITS | Encounter Summary ---
Author Organization [facility] [place] [address] Care Team Providers Care Environmental Compliance Officer Name Role Phone Alo Carey DO Primary Care Provider [phone] Reason for Referral * Diagnostic Test (Routine) - Closed Specialty Diagnoses / Procedures Referred By Marques livingston Referred To Contact Diagnoses Presence of internal carotid stent Procedures Carotid Duplex, Bilateral Basim Barr MD [facility] [place] [address] [facility] Vascular Lab [address] [place] [address] Referral ID Status Reason Start Date Expiration Date V isits Requested Visits Authorized [id number] Closed Specialty Service Requested 08/15/2021 08/15/2022 1 1 Encounter Details Date Type Department Care Team (Late st Contact Info) Description 08/15/2021 9:45 AM EDT Office Visit [place] [address] Basim Barr MD [facility] [place] [address] Presence of internal carotid stent Social History [...] ocular event. Note from Vascular surgeon in [place] who did his R CEA I believe [...] left eye. He has not seen an manufacturing systems engineer in some time. reports that he quit [...] at [facility] in [place]: shaking Has tolerated MRI [...] Text Report Department: Vascular Surgery Lab Patient: [id number] (THA SADLER) CPT: [id number] Referring Physician: AL FLORES Phone: Indications: S/p [...] replacement as needed. He should see an manufacturing systems engineer for follow-up of his continued right eye [...] AM EST Office Visit Hematology/Oncology at [address] [phone] Cl Hess MD [facility] [place] [address] [address] HEMATOLOGY AND ONCOLOGY [place], [place] [phone] 04/09/2024 10:00 AM EST Infusion Hematology Oncology at [address] [phone] 04/23/2024 9:30 AM EST Office Visit Hematology/Oncology at [address] [phone] Cl Hess MD [facility] [place] [address] Yess[address] Renee [address] [place] [address] 04/23/2024 10:00 AM EST Infusion Hematology Oncology at [address] [phone] 05/18/2024 4:30 PM EDT TH Visit (TeleHealth) [place] [address] Malachi Rothman MD [facility] [place] [address] 09/24/2024 9:00 AM EDT Office Visit Radiation Oncology at [address] [phone] Ping Moore PA [facility] [place] [address] documented as of this encounter Results * Carotid Duplex, Bilateral (10/12/2022 9:31 AM EDT) VB Text Report Department: Vascular Surgery Lab Patient: [id number] (THA SADLER) CPT: 55369 Referring Physician: BASIM BARR ?? Indications: HX [...] stent documented in this encounter Care Teams Environmental Compliance Officer Relationship Specialty Start Date End Date Alo Carey DO [address] [place] [address] [place] [address] PCP - General Internal Medicine 08/31/20 07/03/23 documented as of this encounter
--- OUTSIDE RECORDS SUMMARY | 2024-03-26 10:39 | XMS_ITS | Encounter Summary ---
Author Organization [facility] [place] [address] Care Team Providers Care Otr Owner Operator Truck Driver Name Role Phone Alo Carey DO Primary Care Provider Encounter Details Date Type Department Care Team (Late st Contact Info) Description 07/18/2021 12:10 PM EDT Ancillary Procedure Radiology Library at [facility] [place] [address] Alo Carey DO [address] [place] [phone] Social History Tobacco Use Types Packs/Day Years [...] AM EST Office Visit Hematology/Oncology at [address] [phone] Cl Hess MD [facility] [place] [address] [address] HEMATOLOGY AND ONCOLOGY [place], [place] [phone] 04/09/2024 10:00 AM EST Infusion Hematology Oncology at [address] [phone] 04/23/2024 9:30 AM EST Office Visit Hematology/Oncology at [address] [phone] Cl Hess MD [facility] [place] [address] [address] HEMATOLOGY AND ONCOLOGY [place], [place] [phone] 04/23/2024 10:00 AM EST Infusion Hematology Oncology at [address] [phone] 05/18/2024 4:30 PM EDT TH Visit (TeleHealth) [place] [address] Malachi Rothman MD [facility] [place] [address] 09/24/2024 9:00 AM EDT Office Visit Radiation Oncology at [address] [phone] Ping Moore PA [facility] HEMATOLOGY [place] [address] documented as of this encounter Procedures Procedure Name Priority Date/Time Associated Diagnosis Comments FILM LIBRARY STORAGE ONLY CT HEAD Routine 07/18/2021 11:58 AM EDT documented in this encounter Results * Film Library- Storage Only CT Head (07/18/2021 11:58 AM EDT) Narrative RAD - 07/18/2021 11:58 AM EDT This exam is auto-finalizing. It's purpose is for storage only. Alo Carey DO Rk FILM LIBRARY ORD ERABLES Performing Organization Address City/State/[facility] Co de Phone Number [place], [place] documented in this encounter Visit Diagnoses Not on filedocumented in this encounter Care Teams Otr Owner Operator Truck Driver Relationship Specialty Start Date End Date Alo Carey DO [address] [place] [address] [place] [phone] PCP - General Internal Medicine 08/31/20 07/03/23 documented as of this encounter
--- OUTSIDE RECORDS SUMMARY | 2024-03-26 10:39 | XMS_ITS | Encounter Summary ---
Author Organization [facility] Address [facility] [place] [address] Care Team Providers Care Dental Instructor Name Role Phone CherryAlo Lon RUTHERFORD Primary Care Provider [phone] Reason for Referral * Home Health Care (Routine) - Closed Specialty Diagnoses / Procedures Referred By Marques t Referred To Contact Diagnoses Altered mental status, unspecified altered mental status type Stenosis of carotid artery, unspecified laterality History of cerebrovascular accident Sandra Murphy MD [facility] [place] [address] Referral ID Status Reason Start Date Expiration Date V isits Requested Visits Authorized [id number] Closed Consult, Test & Treat 07/22/2021 01/18/2022 999 999 Reason for Visit * Auth/Cert Specialty Diagnoses / Procedures Referred By Contermelinda t Referred To Contact Diagnoses Altered mental status, unspecified altered mental status type reperfusion injury Referral ID Status Reason Start Date Expiration Date Visits Re quested Visits Authorized [id number] 1 1 Encounter Details Date Type Department Care Team (Latest Contact Info) Description 07/18/2021 8:14 PM EDT - 07/21/2021 2:35 PM EDT Hospital Encounter Neuro Critical Care [place] [address] Patricia Briggs MD [facility] [place] [address] [place] [address] ASCVD (arteriosclerotic cardiovascular disease); Altered mental status, [...] Wero Sadler Patient Age: 71 y.o. Language: Brazilian Race: White Ethnicity: Not nor Admit date: 07/18/2021 Discharge date and time: 07/22/2021 Attending Physician: Tabitha Del Castillo MD Discharge Physician: Tabitha Del Castillo MD ID: David Sadler is a 71 yo male who is admitted from OSH on 07/18, 1 day after discharge s/p vascular surgery TCAR, for hallucinations and altered mental status now transferred from [facility] to hospital medicine service for definitive evaluation [...] with optometry.?? PCP Contact Information: Alo Carey, DO [address] [place] [address] / [place] [address] Pending Studies and Lab Data: No current [...] CEA with CABG in December 2018 in [place]. He had recurrence of left tunnel vision while working that persisted as 99% vision loss. 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 He underwent TCAR last week by [facility] vascular surgery with good result and recovery of vision. He was discharged home 07/17 in stable condition. Wero brothers found him altered with visual hallucinations on 07/18 so they called vascular surgery and brought him to ED where his SBP was [id number]. He was transferred to [facility] for definitive management. 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 There was also a P2 FIRE FIGHTERS DISPATCHER severe stenosis thought to cam possible source [...] at [facility] in [place]: shaking Has tolerated MRI [...] Please continue to take aspirin 81mg daily, [id number] daily, atorvastatin 80mg daily. 3) Thiamine, vitamins [...] PM STJ RAD/ONC, TREATMENT [facility] 07/27/2021 2:45 PM STJ RAD/ONC, TREATMENT [facility] 07/28/2021 1:45 PM STJ RAD/ONC, TREATMENT [facility] 08/01/2021 12:45 PM STJ RAD/ONC, TREATMENT [facility] 08/02/2021 12:45 PM STJ RAD/ONC, TREATMENT STJ Rad Trt [facility] 08/03/2021 12:45 PM STJ RAD/ONC, TREATMENT [facility] 08/04/2021 1:00 PM STJ RAD/ONC, TREATMENT [facility] 08/07/2021 12:45 PM STJ RAD/ONC, TREATMENT [facility] 08/08/2021 12:45 PM STJ RAD/ONC, TREATMENT [facility] 08/09/2021 12:45 PM STJ RAD/ONC, TREATMENT [facility] 08/10/2021 12:45 PM STJ RAD/ONC, TREATMENT [facility] 08/11/2021 1:00 PM STJ RAD/ONC, TREATMENT [facility] 08/14/2021 12:45 PM STJ RAD/ONC, TREATMENT [facility] 08/15/2021 12:45 PM STJ RAD/ONC, TREATMENT [facility] 08/16/2021 12:45 PM STJ RAD/ONC, TREATMENT [facility] 08/17/2021 12:45 PM STJ RAD/ONC, TREATMENT [facility] 08/18/2021 12:45 PM STJ RAD/ONC, TREATMENT [facility] 08/21/2021 12:45 PM STJ RAD/ONC, TREATMENT [facility] 08/22/2021 12:45 PM STJ RAD/ONC, TREATMENT [facility] 08/23/2021 12:45 PM STJ RAD/ONC, TREATMENT [facility] 08/24/2021 12:45 PM STJ RAD/ONC, TREATMENT [facility] 08/25/2021 12:45 PM STJ RAD/ONC, TREATMENT [facility] 08/28/2021 12:45 PM STJ RAD/ONC, TREATMENT [facility] 08/29/2021 12:45 PM STJ RAD/ONC, TREATMENT [facility] 08/30/2021 12:45 PM STJ RAD/ONC, TREATMENT [facility] 08/31/2021 12:45 PM STJ RAD/ONC, TREATMENT [facility] 09/01/2021 12:45 PM STJ RAD/ONC, TREATMENT [facility] 09/05/2021 12:45 PM STJ RAD/ONC, TREATMENT [facility] Your Inpatient Doctor: MD Patricia Jaramillo MD Dineth M Bandarage, MD Your Primary Care Provider: Alo Carey DO [phone] For questions regarding this document or issues relating to this hospitalization on the Medical Service, please contact your inpatient physician through the [facility] Sales Operations Manager . Issues afterhours and on weekends will [...] PM STJ RAD/ONC, TREATMENT Radiation Oncology at [facility] Arrive at: [facility] door at end of hallway [phone] 07/27/2021 2:45 PM STJ RAD/ONC, TREATMENT Radiation Oncology at [facility] Arrive at: [facility] door at end of hallway [phone] 07/28/2021 1:45 PM STJ RAD/ONC, TREATMENT Radiation Oncology at [facility] Arrive at: [facility] door at end of hallway [phone] 08/01/2021 12:45 PM STJ RAD/ONC, TREATMENT Radiation Oncology at [facility] door at end of hallway [phone] 08/02/2021 12:45 PM STJ RAD/ONC, TREATMENT Radiation Oncology at [facility] door at end of hallway [phone] 08/03/2021 12:45 PM STJ RAD/ONC, TREATMENT Radiation Oncology at [facility] Arrive at: [facility] door at end of hallway [phone] 08/04/2021 1:00 PM STJ RAD/ONC, TREATMENT Radiation Oncology at [facility] Arrive at: [facility] door at end of hallway [phone] 08/07/2021 12:45 PM STJ RAD/ONC, TREATMENT Radiation Oncology at [facility] Arrive at: [facility] door at end of hallway [phone] 08/08/2021 12:45 PM STJ RAD/ONC, TREATMENT Radiation Oncology at [facility] Arrive at: [facility] door at end of hallway [phone] 08/09/2021 12:45 PM STJ RAD/ONC, TREATMENT Radiation Oncology at [facility] Arrive at: [facility] door at end of hallway [phone] 08/10/2021 12:45 PM STJ RAD/ONC, TREATMENT Radiation Oncology at [facility] Arrive at: [facility] door at end of hallway [phone] 08/11/2021 1:00 PM STJ RAD/ONC, TREATMENT Radiation Oncology at [facility] Arrive at: [facility] door at end of hallway [phone] 08/14/2021 12:45 PM STJ RAD/ONC, TREATMENT Radiation Oncology at [facility] Arrive at: [facility] door at end of hallway [phone] 08/15/2021 12:45 PM STJ RAD/ONC, TREATMENT Radiation Oncology at [facility] Arrive at: [facility] door at end of hallway [phone] 08/16/2021 12:45 PM STJ RAD/ONC, TREATMENT Radiation Oncology at [facility] Arrive at: [facility] door at end of hallway [phone] 08/17/2021 12:45 PM STJ RAD/ONC, TREATMENT Radiation Oncology at [facility] Arrive at: [facility] door at end of hallway [phone] 08/18/2021 12:45 PM STJ RAD/ONC, TREATMENT Radiation Oncology at [facility] Arrive at: [facility] door at end of hallway [phone] 08/21/2021 12:45 PM STJ RAD/ONC, TREATMENT Radiation Oncology at [facility] Arrive at: [facility] door at end of hallway [phone] 08/22/2021 12:45 PM STJ RAD/ONC, TREATMENT Radiation Oncology at [facility] Arrive at: [facility] door at end of hallway [phone] 08/23/2021 12:45 PM STJ RAD/ONC, TREATMENT Radiation Oncology at [facility] Arrive at: [facility] door at end of hallway [phone] 08/24/2021 12:45 PM STJ RAD/ONC, TREATMENT Radiation Oncology at [facility] Arrive at: [facility] door at end of hallway [phone] 08/25/2021 12:45 PM STJ RAD/ONC, TREATMENT Radiation Oncology at [facility] Arrive at: [facility] door at end of hallway [phone] 08/28/2021 12:45 PM STJ RAD/ONC, TREATMENT Radiation Oncology at [facility] Ar[facility] at: [facility] door at end of hallway [phone] 08/29/2021 12:45 PM STJ RAD/ONC, TREATMENT Radiation Oncology at [facility] Ar[facility] at: [facility] door at end of hallway [phone] 08/30/2021 12:45 PM STJ RAD/ONC, TREATMENT Radiation Oncology at [facility] Ar[facility] at: [facility] door at end of hallway [phone] 08/31/2021 12:45 PM STJ RAD/ONC, TREATMENT Radiation Oncology at [facility] Ar[facility] at: [facility] door at end of hallway [phone] 09/01/2021 12:45 PM STJ RAD/ONC, TREATMENT Radiation Oncology at [facility] Ar[facility] at: [facility] door at end of hallway [phone] 09/05/2021 12:45 PM STJ RAD/ONC, TREATMENT Radiation Oncology at [facility] Ar[facility] at: [facility] door at end of hallway [phone] Future Orders Complete By Expires Referral to Home Health [REF34 Custom] As directed Process Instructions: If no progress note charted, please enter Clinical details in comments. Scheduling Instructions: Comments: DOCUMENTATION FOR VNA SERVICES PATIENT'S LOCATION: Wero Sadler ? [address] [facility] [address] mobile Popcorn Vendor's Name: Patient and significant other Amy In discussion with the attending physician, it is certified that this patient is under their care and that they, or a Nurse Practitioner, Clinical Nurse Specialist or Physician Bundles Hanger who is working directly with them, had [...] program if appropriate. HOME HEALTH CARE AGENCY: [facility] ?? PHONE: [phone] ??FAX: [phone] ?? Start of care: 24-48 hrs after [...] patient's PCP: ??Alo Carey, DO ? [address] / [place] [address] ?[phone] All VNA agencies which cover the area of patient's residence have been reviewed, either verbally alberto writing, and patient/family have chosen the home health care agency noted. Questions: Disciplines Requested: Physical Therapy Occupational Therapy Inpatient Provider Contact Information: Sandra Murphy MD Internal Medicine, PGY-3 [facility], Pager [phone] Discharge References/Attachments: Discharge References/Attachments None documented in [...] Please continue to take aspirin 81mg daily, [id number] daily, atorvastatin 80mg daily. 3) Thiamine, vitamins [...] PM STJ RAD/ONC, TREATMENT [facility] 07/27/2021 2:45 PM STJ RAD/ONC, TREATMENT STJ Rad Trt [facility] 07/28/2021 1:45 PM STJ RAD/ONC, TREATMENT STJ Rad Trt [facility] 08/01/2021 12:45 PM STJ RAD/ONC, TREATMENT STJ Rad Trt [facility] 08/02/2021 12:45 PM STJ RAD/ONC, TREATMENT STJ Rad Trt [facility] 08/03/2021 12:45 PM STJ RAD/ONC, TREATMENT STJ Rad Trt [facility] 08/04/2021 1:00 PM STJ RAD/ONC, TREATMENT STJ Rad [facility] 08/07/2021 12:45 PM STJ RAD/ONC, TREATMENT STJ Rad Trt [facility] 08/08/2021 12:45 PM STJ RAD/ONC, TREATMENT [facility] 08/09/2021 12:45 PM STJ RAD/ONC, TREATMENT ST[facility] 08/10/2021 12:45 PM STJ RAD/ONC, TREATMENT [facility] 08/11/2021 1:00 PM STJ RAD/ONC, TREATMENT [facility] 08/14/2021 12:45 PM STJ RAD/ONC, TREATMENT STJ Rad Trt [facility] 08/15/2021 12:45 PM STJ RAD/ONC, TREATMENT STJ Rad Trt [facility] 08/16/2021 12:45 PM STJ RAD/ONC, TREATMENT STJ Rad Trt [facility] 08/17/2021 12:45 PM STJ RAD/ONC, TREATMENT STJ [facility] 08/18/2021 12:45 PM STJ RAD/ONC, TREATMENT ST[facility] 08/21/2021 12:45 PM STJ RAD/ONC, TREATMENT [facility] 08/22/2021 12:45 PM STJ RAD/ONC, TREATMENT ST[facility] 08/23/2021 12:45 PM STJ RAD/ONC, TREATMENT [facility] 08/24/2021 12:45 PM STJ RAD/ONC, TREATMENT [facility] 08/25/2021 12:45 PM STJ RAD/ONC, TREATMENT [facility] Rad [facility] 08/28/2021 12:45 PM STJ RAD/ONC, TREATMENT ST[facility] 08/29/2021 12:45 PM STJ RAD/ONC, TREATMENT [facility] 08/30/2021 12:45 PM STJ RAD/ONC, TREATMENT [facility] 08/31/2021 12:45 PM STJ RAD/ONC, TREATMENT [facility] 09/01/2021 12:45 PM STJ RAD/ONC, TREATMENT [facility] 09/05/2021 12:45 PM STJ RAD/ONC, TREATMENT [facility] Your Inpatient Doctor: MD Patricia Jaramillo MD Dineth M Bandarage, MD Your Primary Care Provider: Alo Carey DO [phone] For questions regarding this document or issues relating to this hospitalization on the Medical Service, please contact your inpatient physician through the [facility] Sales Operations Manager . Issues afterhours and on weekends will be handled by the Hospitalist staff on-call. documented in this encounter Medications at Time of Discharge Medication Sig Dispensed Refills Start Date End Date omega 1-epg-hki-fish oil 250-350-1,000 mg Capsule Take 1,000 mg [...] spent >30 minutes (Day of Discharge Code 28723) involved in the final examination of the [...] referrals are placed. Patient requests referral to: [facility]. PHONE: [phone] FAX: [phone] Expected date of discharge: 07/21/21 Referral routed to the Shoe Coverer for matching with agency/vendor and to provide any required information. Leah Ortega RN MICU Phone [phone] Pager [phone] * Denys Kimball, OT - 07/21/2021 10:33 [...] hypertensive postop period. ?? 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 Pt transferred from [facility] after waking up on 07/18 altered apparently [...] Frequency (PT): Monitor Time IN / OUT: 8692-7433 Total Minutes, Physical Therapy: 25 (TEFx2). Melva Diego PT DPT 07/20/2021 Pager: [phone] Physical Therapy Inpatient Rehabilitation Department * Tabitha Del Castillo MD - 07/20/2021 8:12 AM EDT [facility] Medicine Progress Note Wero Sadler 71 y.o. 1950 [id number] Date/Time: 07/20/2021 8:12 AM Date of [...] focal stroke versus reperfusion phenomena d/t P2 FIRE FIGHTERS DISPATCHER stenosis and hypertension. As we are beyond [...] of reperfusion injury secondary to P2 segment FIRE FIGHTERS DISPATCHER stenosis and postoperative hypertension #s/p TCAR -high [...] of two midnights or is on the [facility] inpatient only procedure list (status C) [...] segment of the right posterior cerebral artery oCry Cai MD [facility] medicine service, PGY1 Pager [phone] * Wojciech Madera MD - 07/20/2021 7:04 [...] 3040 07/21/2021 7:04 AM * Tammy Mukherjee, [facility] - 07/19/2021 1:38 PM EDT 07/19/21 1202 Oxygen Therapy O2 Device RA SpO2 96 % Resp 18 Pt on room air jacquie well Pt has no treatments ordered at this time Will continue to monitor pt * Esau Mcclain Kvng - 07/19/2021 10:18 AM EDT ICU PROGRESS NOTE DOA: 07/18/2021 Room: [address] Length of Stay: 1 ICU Length [...] for hypertensive postop period. Pt transferred from [facility] after waking up on 07/18 altered apparently [...] midline Motor: Normal bulk and tone throughout, case coordinator is 4/5 in L hand, toes downward, [...] acetaminophen PRN Core: Code status: [facility] //////////////////////////////////////////////////////////////////////////////// //////////////////// /////////////////////////////////////////////////Attestation: IS [...] hypertensive postop period. ?? Pt transferred from [facility] after waking up on 07/18 altered apparently [...] chemo in [place] ??? Coronary artery disease ??? Coronary [...] 9.19) performed by Basim Barr MD at [facility] MAIN OR ??? PRO LASER VAPORIZATION SURGERY PROSTATE, COMPLETE Midline 02/02/2021 CYSTO, LASER TURP (WRVU 12.15) performed by Cayetano Engle MD at [facility] MAIN OR ??? PRO PLACE TRANSCATHETER STENT, CCA W EMBOLIC PROECT Right 07/14/2021 @TRANSCATH INTRAVASCULAR STENT,CAROTID,PERC,W\EMBOLIC PROT. (WRVU 18) performed by Basim Barr MD at [facility] MAIN OR ??? PRO TOTAL HIP ARTHROPLASTY Left 10/10/2020 TOTAL HIP ARTHROPLASTY - POSTERIOR (WRVU 20.72) performed by Ismael Wu MD at [facility] MAIN OR Social History: Home setup: [...] outlinedin this evaluation. Time IN / OUT: 9380-1087 Total Minutes, Physical Therapy: 26 (eval). Melva Diego PT DPT 07/19/2021 Pager: [phone] Physical Therapy Inpatient Rehabilitation Department * Patricia Briggs MD - 07/19/2021 9:25 AM EDT ICU PROGRESS NOTE DOA: 07/18/2021 Room: [address] Length of Stay: 1 ICU Length [...] hallucinations: could be secondary to delirium, +/- Aol Bonnet syndrome, possibly cerebral hyperperfusion syndrome though [...] Services Consulted PT/OT: Consult ordered; recs pending COMPUTER ASSISTANT: Consult ordered; recs pending Family Meeting in [...] CEA with CABG in December 2018 in [place]. He had recurrence of left tunnel vision while working that persisted as 99% vision loss. 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 He underwent TCAR last week by [facility] vascular surgery with good result and recovery of vision. He was discharged home 07/17 in stable condition. Wero brothers found him altered with visual hallucinations on 07/18 so they called vascular surgery and brought him to ED where his SBP was [id number]. He was transferred to [facility] for definitive management. Originally thought to have [...] chemo in [place] ??? Coronary artery disease ??? Coronary [...] 9.19) performed by Basim Barr MD at [facility] MAIN OR ??? PRO LASER VAPORIZATION SURGERY PROSTATE, COMPLETE Midline 02/02/2021 CYSTO, LASER TURP (WRVU 12.15) performed by Cayetano Engle MD at [facility] MAIN OR ??? PRO PLACE TRANSCATHETER STENT, CCA W EMBOLIC PROECT Right 07/14/2021 @TRANSCATH INTRAVASCULAR STENT,CAROTID,PERC,W\EMBOLIC PROT. (WRVU 18) performed by Basim Barr MD at [facility] MAIN OR ??? PRO TOTAL HIP ARTHROPLASTY Left 10/10/2020 TOTAL HIP ARTHROPLASTY - POSTERIOR (WRVU 20.72) performed by Ismael Wu MD at [facility] MAIN OR Social History: Occupational History ??? 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 Smoking status: Former Smoker [...] at [facility] in [place]: shaking Has tolerated MRI [...] who have questions please contact the health resident care supervisor that requested your imaging first. Request For 2nd Read CT Head And [...] who have questions please contact the health resident care supervisor that requested your imaging first. SSMENT and PLAN: Wero Sadler is a 71 [...] was acutely confused and was transferred to [facility] for this. Unfortunately I cannot see a [...] Cai MD Hospital medicine service, PGY-1 Pager #[phone] Attending Staff Admission Documentation I certify that [...] Patient now present as a transfer from [facility] after waking up 07/18 altered, apparently [...] acute alcohol withdrawal, patient was transferred to [facility] for tight blood pressure control with goal [...] chemo in [place] ??? Coronary artery disease ??? Coronary [...] SURGICAL REPAIR, ARTERY; NECK (CAROTID OR SUBCLAVIAN) (VU 9.19) performed by Basim Barr MD at [facility] MAIN OR ??? PRO LASER VAPORIZATION SURGERY PROSTATE, COMPLETE Midline 02/02/2021 CYSTO, LASER TURP (WRVU 12.15) performed by Cayetano Engle MD at [facility] MAIN OR ??? PRO PLACE TRANSCATHETER STENT, CCA W EMBOLIC PROECT Right 07/14/2021 @TRANSCATH INTRAVASCULAR STENT,CAROTID,PERC,W\EMBOLIC PROT. (WRVU 18) performed by Basim Barr MD at [facility] MAIN OR ??? PRO TOTAL HIP ARTHROPLASTY Left 10/10/2020 TOTAL HIP ARTHROPLASTY - POSTERIOR (WRVU 20.72) performed by Ismael Wu MD at [facility] MAIN OR Social History Tobacco [...] hour(s)) Lactate, whole blood, send to lab ([facility] Result Value Ref Range Lactate WB 1.2 [...] Value Ref Range T&S only valid at [facility] Hosp POCT Glucose Result Value Ref Range POC Glucose 146 65 - 199 mg/dL Imaging: CTH from [facility], 07/18 CTH/CTA pending second read EKG: From [...] swallow screen - maintain NPO until formal COMPUTER ASSISTANT eval if pt fails bedside swallow eval [...] Assessment Rehab Services Consulted PT/OT: Not indicated COMPUTER ASSISTANT: Not indicated Family Meeting in Last 5 Days No Code Status - Attempt Cardiopulmonary Resuscitation - Inpatient Dispo - ICU Salome Rodriguez APRN 07/18/2021 [facility] pager [phone] documented in this encounter Miscellaneous Notes * [...] Lisinopril for hypertensive postop period. Transferred to [facility] on 07/19 from [facility] for AMS, imbalance, and visual hallucinations. SBP [...] at [facility] in [place]: shaking Has tolerated MRI [...] 4.57 -- Recent Labs 07/20/21 0015 07/19/21 01107/18/21203207/14/21 0716 NA 137 138 138 138 K [...] 168 hours. No results for input(s): PHART, AHL9IXS, PO2ART, ULE1HVT in the last 168 hours. Recent Labs [...] who have questions please contact the health resident care supervisor that requested your imaging first. Request For 2nd Read CT Head And [...] who have questions please contact the health resident care supervisor that requested your imaging first. Angiogram Head & MRI Brain wwo Contrast [...] who have questions please contact the health resident care supervisor that requested your imaging first. Assessment and Plan: 71 y.o. male with [...] andLisinopril for hypertensive postop period. Transferred to [facility] on 07/19 from [facility] for AMS, imbalance, and visual hallucinations. SBP [...] Sparks MD Please page Vascular Neurology at #[id number] with any questions. Department of Neurology [place] [id number] Associated attestation - Cathryn Funetes MD - 07/21/2021 1:49 PM EDT Neurology [...] COVID test: Lab Results Component Value Date [id number] Not Detected 07/19/2021 Present on Admission: ??? Altered mental status, unspecified altered mental status type Hospitalizations Within the Past 30 Days: current reason for admission unrelated to previous admission, other (see comments) Patient receiving hospital care under Inpatient status. Admission order reviewed. Primary Insurance on file: MEDICARE Secondary Insurance on file:@ Primary care provider on file: Alo Carey DO [phone] Pharmacy: [id number] - [place], [place] - [address] [facility] [address] [facility] [address] [facility] [phone] Advance Care Planning: Attempt Cardiopulmonary Resuscitation - Inpatient <no information> -Advanced Directive: No, need to discuss Current Functional Ability: Independent Functional Status Prior to Admission: Independent Home Environment: Others in the home: sibling(s) (patient lives with his brother in [place], [place]). Current Living Arrangements: home/apartment/condo. Accessibility Concerns:Pt lives with his brother in a two level home with 2 CLARIBEL and a FOS with B railings to the second floor where pt's bedroom is located. Current DME: cane - straight, walker - standard [address] [facility] [address] Social & Family Supports: All names listed below confirmed with patient as current and correct Extended Emergency Contact Information Primary Emergency Contact: AMY ROPER Address: [address] [place] [id number] [place] [address] of [place] Mobile Relation: Significant Other Secondary Emergency Contact: SADLERSERGIO Mobile Relation: Sibling Current Care Provided by: self, other (see comments) ([facility] NCC nursing care team; boarding in [facility]) Transportation: no concerns Transportation Anticipated: family or friend will provide Assessment: Patient with no apparent RNCM/SW needs at this time. No housing, transportation, insurance, resources concerns identified at this time. Supports in place to achieve a safe post-hospital transition. No identified barriers to accessing necessary care and/or follow-up after discharge. Plan: Patient to d/c to home in [place], [place] via private car when medically ready. Registered Nurse Computer Systems Auditor / Marketing Programs Manager will continue to follow patient???s progress and remain available if situation changes for coordination of care, psychosocial support and/or discharge planning. Office of Care Management Erika Kay RN [facility] OCM hydroponics worker Pager: [phone] * Plan of Care - Lashonda Chin [...] hypertensive postop period. ?? Pt transferred from [facility] after waking up on 07/18 altered apparently [...] Discharge planning. Total Minutes, Occupational Therapy: 24 ([phone] (eval)) 2017 OT Evaluation Code Rationale: Diagnosis [...] of functional outcome. Denys Kimball, OTR Pager [phone] Occupational Therapy Rehabilitation Department * Consult Note - Milagros Forbes MD - 07/19/2021 12:01 AM EDT [facility] Department of Vascular Surgery Consult Note CC: [...] visual hallucinations, prompting an ED visit at [facility]. Exam there was notable for headache and LUE pronator drift. SBP was in 160-170s per OSH report. CT/CTA showed patent R carotid stent graft and intracranial vessels. He was transferred to [facility] with concerns for reperfusion injury s/p TCAR [...] chemo in [place] ??? Coronary artery disease ??? Coronary [...] 9.19) performed by Basim Barr MD at [facility] MAIN OR ??? PRO LASER VAPORIZATION SURGERY PROSTATE, COMPLETE Midline 02/02/2021 CYSTO, LASER TURP (WRVU 12.15) performed by Cayetano Engle MD at [facility] MAIN OR ??? PRO PLACE TRANSCATHETER STENT, CCA W EMBOLIC PROECT Right 07/14/2021 @TRANSCATH INTRAVASCULAR STENT,CAROTID,PERC,W\EMBOLIC PROT. (WRVU 18) performed by Basim Barr MD at [facility] MAIN OR ??? PRO TOTAL HIP ARTHROPLASTY Left 10/10/2020 TOTAL HIP ARTHROPLASTY - POSTERIOR (WRVU 20.72) performed by Ismael Wu MD at [facility] MAIN OR Medications No current facility-administered [...] at [facility] Vascular in [place]: shaking Has tolerated MRI and CT contrast. Family History: Family History Problem Relation Age of Onset ??? Diabetes Father Social History: Social History Socioeconomic History ??? Marital status: Spouse name: Not on file ??? Number of children: Not on file ??? Years of education: Not on file ??? Highest education level: Not on file Occupational History ??? 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 Smoking status: Former Smoker [...] Discussed with Dr. Canela, vascular surgery fellow electronic operator, and communicated to the primary team. Milagros Forbes MD Vascular Surgery Consult Pager [phone] documented in this encounter Plan of Treatment Upcoming Encounters Date Type Department Care Team (Late st Contact Info) Description 04/09/2024 9:30 AM EST Office Visit Hematology/Oncology at [address] [phone] Cl Hess MD [facility] [address] Yessi Renee APRN [address] [place] [address] DR [place]Y [place] [address] 04/09/2024 10:00 AM EST Infusion Hematology Oncology at [address] [phone] 04/23/2024 9:30 AM EST Office Visit Hematology/Oncology at [address] [phone] Cl Hess MD [facility] [place] [address] Yessi Renee APRN [address] [place] [address] DR HEMATOLOGY AND ONCOLOGY [place], [place] [phone] 04/23/2024 10:00 AM EST Infusion Hematology Oncology at [address] [phone] 05/18/2024 4:30 PM EDT TH Visit (TeleHealth) [place] [phone] Malachi Rothman MD [facility] [place] [address] 09/24/2024 9:00 AM EDT Office Visit Radiation Oncology at [address] [phone] Ping Moore PA [facility] [place] [address] Scheduled Referrals Name Type Priority Associated Diagnoses [...] PM EDT [facility] THIAMIN LVL(VITAMIN B1) WB-[facility]ORE Routine 07/19/2021 3:25 PM EDT POCT GLUCOSE [...] * POCT Glucose (07/21/2021 11:58 AM EDT) Glucose, POC 179 65 - 199 mg/dL [facility] Comment: Supplemental ranges: <140 mg/dL before meals <180 mg/dL all other times of the day Blood 07/21/2021 11:5 8 AM EDT 07/21/2021 11:58 AM EDT Tabitha Del Castillo MD POINT OF CARE DANIEL T ORDERABLES [facility] [place] [address] * POCT Glucose (07/21/2021 8:07 AM EDT) Glucose, POC 149 65 - 199 mg/dL [facility] Comment: Supplemental ranges: <140 mg/dL before meals <180 mg/dL all other times of the day Blood 07/21/2021 8:07 AM EDT 07/21/2021 8:07 AM EDT Tabitha Del Castillo MD POINT OF CARE DANIEL T ORDERABLES Performing Organization Address City/[facility]/ZIP Co de Phone Number [facility] [place] [address] * POCT Glucose (07/21/2021 4:03 AM EDT) Glucose, POC 163 65 - 199 mg/dL [facility] Comment: Supplemental ranges: <140 mg/dL before meals <180 mg/dL all other times of the day Blood 07/21/2021 4:03 AM EDT 07/21/2021 4:03 AM EDT Tabitha Del Castillo MD POINT OF CARE DANIEL T ORDERABLES [facility] [place] [address] * Differential, Automated (07/21/2021 12:30 AM EDT) Neutrophil % 67.0 % [facility] Neutrophil Absolute 4.65 1.70 - 6.10 x10(3)/[facility] LABORATORY Lymph % 21.6 % [facility] Lymphocytes Abs 1.5 0.9 - 3.2 x10(3)/[facility] LABORATORY Monocyte % 8.9 % [facility] Monocyte Abs 0.6 0.3 - 0.9 x10(3)/[facility] LABORATORY Eos % 1.9 % [facility] Eosinophils Abs 0.1 0.0 - 0.4 x10(3)/[facility] LABORATORY Basophil % 0.3 % [facility] Baso Absolute 0.0 0.0 - 0.1 x10(3)/[facility] LABORATORY Immature Gran % 0.30 % [facility] Comment: Immature granulocytes(IG's)percentage and absolute count will include metamyelocytes, myelocytes, and promyelocytes. Blood smears from CBCs yielding IG's will be scanned manually for concordance. If this scan disagrees with the automated IG or if promyelocytes are noted, a manual differential will be performed. Immature Gran Absolute 0.02 0.00 - 0.04 x10(3)/[facility] LABORATORY Blood 07/21/2021 12:3 0 AM EDT 07/21/2021 12:42 AM EDT Narrative Resulting Agency Comment Spec In Lab Abbi CORMIER HEMATOLOGY ORDERABL ES [facility] [place] [address] * (ABNORMAL) Hemogram (07/21/2021 12:30 AM EDT) White Blood Cell 6.9 4.0 - 9.5 x10(3)/[facility] LABORATORY Red Blood Cell 3.24(L) 4.58 - 5.54 x10(6)/[facility] LABORATORY Hemoglobin 10.3(L) 13.7 - 16.5 g/dL [facility] Hematocrit 30.8(L) 40.5 - 48.5 % [facility] Mean Cell Volume 95.1(H) 82.9 - 93.1 fL [facility] Mean Cell Hemoglobin 31.8 27.5 - 32.1 pg [facility] Mean Cell Hemoglobin Concentration 33.4 32.0 - 35.7 g/dL [facility] Platelet 229 145 - 357 x10(3)/[facility] LABORATORY RDW Standard Deviation 47.2(H) 36.0 - 45.0 [facility] LABORATORY RDW coefficient of variation 13.6 11.4 - 13.8 % [facility] Mean Platelet Volume 10.1 7.6 - 12.9 fL [facility] NRBC% auto 0.0 % [facility] NRBC Absolute 0.000 0.000 - 0.000 x10(3)/mc L [facility] Blood 07/21/2021 12:3 0 AM EDT 07/21/2021 12:42 AM EDT Narrative Resulting Agency Comment Spec In Lab Abbi CORMIER HEMATOLOGY ORDERABL ES Performing Organization Address City/[facility]/ZIP Co de Phone Number [facility] [place] [address] * Phosphorus (07/21/2021 12:30 AM EDT) Phosphorus 3.8 2.5 - 4.5 mg/dL [facility] Blood 07/21/2021 12:3 0 AM EDT 07/21/2021 12:42 AM EDT Narrative Resulting Agency Comment Spec In Lab Patricia Briggs MD CHEMISTRY ORDERABLES Performing Organization Address [facility]/ZIP Co de Phone Number [facility] [place] [address] * Magnesium (07/21/2021 12:30 AM EDT) Magnesium 0.96 0.69 - 1.07 mmol/L [facility] Blood 07/21/2021 12:3 0 AM EDT 07/21/2021 12:42 AM EDT Narrative Resulting Agency Comment Spec In Lab Patricia Briggs MD CHEMISTRY ORDERABLES Performing Organization Address [facility] Co de Phone Number [facility] [place] [address] * (ABNORMAL) Basic Metabolic Panel (non-fasting) (07/21/2021 12:30 AM EDT) Glucose 166 65 - 199 mg/dL [facility] Comment:Diabetes: >=200 mg/d L plus symptoms Blood Urea Nitrogen 20 10 - 20 mg/dL [facility] Creatinine 0.65(L) 0.80 - 1.50 mg/dL [facility] Sodium 136 135 - 145 mmol/L [facility] Potassium 3.7 3.5 - 5.0 mmol/L [facility] Comment: Please note: ??Patients with WBC >100,000 may have falsely elevated Potassium levels. ??For accurate Potassium quantification in these patients send serum separator tube (gold top) for subsequent determinations. ??Contact the Clinical Chemistry Laboratory if there are any questions. Chloride 103 98 - 107 mmol/L [facility] Carbon Dioxide 21(L) 22 - 31 mmol/L [facility] Anion Gap 12 5 - 15 mmol/L [facility] Calcium 8.7 8.5 - 10.5 mg/dL [facility] Est Glomerular Filtration Rate 97 >=60 mL/min/1. 73 m?? [facility] Comment: This patient? s estimated [...] In Lab Patricia Briggs MD CHEMISTRY ORDERABLES [facility] [place] [address] * POCT Glucose (07/21/2021 12:13 AM EDT) Glucose, POC 161 65 - 199 mg/dL [facility] Comment: Supplemental ranges: <140 mg/dL before meals <180 mg/dL all other times of the day Blood 07/21/2021 12:1 3 AM EDT 07/21/2021 12:13 AM EDT Tabitha Del Castillo MD POINT OF CARE DANIEL T ORDERABLES [facility] [place] [address] * POCT Glucose (07/20/2021 7:52 PM EDT) Glucose, POC 179 65 - 199 mg/dL [facility] Comment: Supplemental ranges: <140 mg/dL before meals <180 mg/dL all other times of the day Blood 07/20/2021 7:52 PM EDT 07/20/2021 7:52 PM EDT Tabitha Del Castillo MD POINT OF CARE DANIEL T ORDERABLES [facility] [place] [address] * POCT Glucose (07/20/2021 4:15 PM EDT) Glucose, POC 176 65 - 199 mg/dL [facility] Comment: Supplemental ranges: <140 mg/dL before meals <180 mg/dL all other times of the day Blood 07/20/2021 4:15 PM EDT 07/20/2021 4:15 PM EDT Tabitha Del Castillo MD POINT OF CARE DANIEL T ORDERABLES [facility] [place] [address] * POCT Glucose (07/20/2021 11:27 AM EDT) Glucose, POC 186 65 - 199 mg/dL [facility] Comment: Supplemental ranges: <140 mg/dL before meals <180 mg/dL all other times of the day Blood 07/20/2021 11:2 7 AM EDT 07/20/2021 11:27 AM EDT Tabitha Del Castillo MD POINT OF CARE DANIEL T ORDERABLES [facility] [place] [address] * POCT Glucose (07/20/2021 7:41 AM EDT) Glucose, POC 155 65 - 199 mg/dL [facility] Comment: Supplemental ranges: <140 mg/dL before meals <180 mg/dL all other times of the day Blood 07/20/2021 7:41 AM EDT 07/20/2021 7:41 AM EDT Tabitha Del Castillo MD POINT OF CARE DANIEL T ORDERABLES Performing Organization Address City/[facility]/ZIP Co de Phone Number [facility] [place] [address] * POCT Glucose (07/20/2021 2:53 AM EDT) Glucose, POC 153 65 - 199 mg/dL [facility] Comment: Supplemental ranges: <140 mg/dL before meals <180 mg/dL all other times of the day Blood 07/20/2021 2:53 AM EDT 07/20/2021 2:53 AM EDT Tabitha Del Castillo MD POINT OF CARE DANIEL T ORDERABLES [facility] [place] [address] * POCT Glucose (07/20/2021 12:20 AM EDT) Glucose, POC 163 65 - 199 mg/dL [facility] Comment: Supplemental ranges: <140 mg/dL before meals <180 mg/dL all other times of the day Blood 07/20/2021 12:2 0 AM EDT 07/20/2021 12:20 AM EDT Tabitha Del Castillo MD POINT OF CARE DANIEL T ORDERABLES [facility] [place] [place] [address] * Differential, Automated (07/20/2021 12:15 AM EDT) Neutrophil % 65.5 % [facility] Neutrophil Absolute 4.41 1.70 - 6.10 x10(3)/[facility] LABORATORY Lymph % 21.1 % [facility] Lymphocytes Abs 1.4 0.9 - 3.2 x10(3)/[facility] LABORATORY Monocyte % 10.8 % [facility] Monocyte Abs 0.7 0.3 - 0.9 x10(3)/[facility] LABORATORY Eos % 2.1 % [facility] Eosinophils Abs 0.1 0.0 - 0.4 x10(3)/[facility] LABORATORY Basophil % 0.4 % [facility] Baso Absolute 0.0 0.0 - 0.1 x10(3)/[facility] LABORATORY Immature Gran % 0.10 % [facility] Comment: Immature granulocytes(IG's)percentage and absolute count will include metamyelocytes, myelocytes, and promyelocytes. Blood smears from CBCs yielding IG's will be scanned manually for concordance. If this scan disagrees with the automated IG or if promyelocytes are noted, a manual differential will be performed. Immature Gran Absolute 0.01 0.00 - 0.04 x10(3)/[facility] LABORATORY Blood 07/20/2021 12:1 5 AM EDT 07/20/2021 12:34 AM EDT Narrative Resulting Agency Comment Spec In Lab Abbi CORMIER HEMATOLOGY ORDERABL ES [facility] [place] [address] * (ABNORMAL) Hemogram (07/20/2021 12:15 AM EDT) White Blood Cell 6.7 4.0 - 9.5 x10(3)/ L [facility] Red Blood Cell 3.25(L) 4.58 - 5.54 x10(6)/mc [facility] Hemoglobin 10.1(L) 13.7 - 16.5 g/dL [facility] Hematocrit 30.3(L) 40.5 - 48.5 % [facility] Mean Cell Volume 93.2(H) 82.9 - 93.1 fL [facility] Mean Cell Hemoglobin 31.1 27.5 - 32.1 pg [facility] Mean Cell Hemoglobin Concentration 33.3 32.0 - 35.7 g/dL [facility] Platelet 226 145 - 357 x10(3)/[facility] LABORATORY RDW Standard Deviation 45.3(H) 36.0 - 45.0 [facility]ORY RDW coefficient of variation 13.2 11.4 - 13.8 % [facility] Mean Platelet Volume 10.3 7.6 - 12.9 [facility]ORY NRBC% auto 0.0 % [facility] NRBC Absolute 0.000 0.000 - 0.000 x10(3)/[facility] LAB[facility]ORY Blood 07/20/2021 12:1 5 AM EDT 07/20/2021 12:34 AM EDT Narrative Resulting Agency Comment Spec In Lab Abbi CORMIER HEMATOLOGY ORDERABL ES [facility] [place] [address] * Magnesium (07/20/2021 12:15 AM EDT) Pathologist [facility] Magnesium 0.96 0.69 - 1.07 mmol/L [facility] Blood 07/20/2021 12:1 5 AM EDT 07/20/2021 12:34 AM EDT Narrative Resulting Agency Comment Spec In Lab Patricia Briggs MD CHEMISTRY ORDERABLES [facility] [place] [address] * Phosphorus (07/20/2021 12:15 AM EDT) [facility] Phosphorus 3.7 2.5 - 4.5 mg/dL [facility] Blood 07/20/2021 12:1 5 AM EDT 07/20/2021 12:34 AM EDT Narrative Resulting Agency Comment Spec In Lab Patricia Briggs MD CHEMISTRY ORDERABLES [facility] [place] [address] * (ABNORMAL) Basic Metabolic Panel (non-fasting) (07/20/2021 12:15 AM EDT) Pathologist [facility] Glucose 164 65 - 199 mg/dL [facility] Comment:Diabetes: >=200 mg/d L plus symptoms Blood Urea Nitrogen 16 10 - 20 mg/dL [facility] Comment:result rechecked-[facility] Creatinine 0.59(L) 0.80 - 1.50 mg/dL [facility] Sodium 137 135 - 145 mmol/L [facility] Potassium 3.9 3.5 - 5.0 mmol/L [facility] Comment: Please note: ??Patients with WBC >100,000 may have falsely elevated Potassium levels. ??For accurate Potassium quantification in these patients send serum separator tube (gold top) for subsequent determinations. ??Contact the Clinical Chemistry Laboratory if there are any questions. Chloride 104 98 - 107 mmol/L [facility] Carbon Dioxide 20(L) 22 - 31 mmol/L [facility] Anion Gap 13 5 - 15 mmol/L [facility] Calcium 8.3(L) 8.5 - 10.5 mg/dL [facility] Est Glomerular Filtration Rate 100 >=60 mL/min/1. 73 m?? [facility] Comment: This patient? s estimated [...] In Lab Patricia Briggs MD CHEMISTRY ORDERABLES [facility] [place] [address] * MRI Angiogram Head & MRI Brain [...] who have questions please contact the health resident care supervisor that requested your imaging first. ? Narrative 07/20/2021 8:22 AM EDT EXAMINATION: MRI [...] segment of the right posterior cerebral artery. FIRE FIGHTERS DISPATCHER stenoses are similar appearance to those present [...] hemisphere, numbering three in total. No associated [id number] is present at these sites MRA: There is mild irregularity of the paraclinoid internal carotidarteries bilaterally. There is moderate focal stenosis of the inferior left S8kgabwxge origin. There is moderate to severe stenosis of the P2 segment of theleft posterior cerebral artery and mild/moderate smooth stenosis of the L7ladqryh of the right posterior cerebral artery. FIRE FIGHTERS DISPATCHER stenoses are similar appearanceto those present on [...] patients who have questions please contactthe health resident care supervisor that requested your imaging first. Patricia Briggs MD IMG MRI ORDERABLES * (ABNORMAL) POCT Glucose (07/19/2021 7:46 PM EDT) [facility] Glucose, POC 211(H) 65 - 199 mg/dL [facility] Comment: Supplemental ranges: <140 mg/dL before meals <180 mg/dL all other times of the day Blood 07/19/2021 7:46 PM EDT 07/19/2021 7:46 PM EDT Tabitha Del Castillo MD POINT OF CARE DANIEL T ORDERABLES [facility] [place] [address] * (ABNORMAL) BLOOD GAS 2 VENOUS (07/19/2021 4:16 PM EDT) [facility] pH, Venous 7.43(H) 7.32 - 7.42 [facility] PCO2, Venous 36(L) 41 - 51 mmHg [facility] PO2, Venous 42(H) 25 - 40 mmHg [facility] Bicarbonate, Venous 23.5 mmol/L [facility] Base Excess, Venous -0.8 mmol/L [facility] Hgb Blood Gas 11.5(L) 13.7 - 16.5 g/dL [facility] Oxyhemoglobin, Venous 77.7 % [facility] Carboxyhemoglob in, Venous 0.7 % [facility] Comment: Nonsmokers: 0.5-1.5% COHB Smokers: Variable, but usually less than 10% Toxic: 20-30% COHB Lethal: Greater than 60% COHB Methemoglobin, Venous 0.1 <=1.5 % [facility] Na Whole Blood 136 135 - 145 mmol/L [facility] K Whole Blood 3.4(L) 3.5 - 5.0 mmol/L [facility] Comment: Please note: Patients with WBC >100,000 may have falsely elevated Potassium levels. Contact the Clinical Chemistry Laboratory if there are any questions. ICa Whole Blood 1.14(L) 1.15 - 1.33 mmol/L [facility] Comment: Note: ??Total bilirubin higher than 20 mg/dL may lead to falsely low ionized calcium. CL Whole Blood 107 98 - 107 mmol/L [facility] Gluc Whole Bld 176 65 - 199 mg/dL [facility] Comment:Diabetes: >=200 mg/d L plus symptoms Lactate WB 1.1 0.5 - 2.2 mmol/L [facility] Fraction of Inspired Oxygen, Venous 21 % [facility] Blood Gas Source Venous [facility] Blood 07/19/2021 4:16 PM EDT 07/19/2021 4:16 PM EDT Patricia Briggs MD POINT OF CARE TEST O RDERABLES [facility] [place] [address] * POCT Glucose (07/19/2021 4:03 PM EDT) Glucose, POC 183 65 - 199 mg/dL [facility] Comment: Supplemental ranges: <140 mg/dL before meals <180 mg/dL all other times of the day Blood 07/19/2021 4:03 PM EDT 07/19/2021 4:03 PM EDT Patricia Briggs MD POINT OF CARE TEST O RDERABLES Performing Organization Address [facility] Co de Phone Number [facility] [place] [address] * Vitamin B1, whole blood (07/19/2021 3:25 PM EDT) [facility] Vit B1 Lvl Wb (JULY) 108 70 - 180 nmol/L [facility] Comment: ADDITIONAL INFORMATION This test was developed and its performance characteristics determined by [facility] in a manner consistent with CLIA requirements. This test has not been cleared or approved by the U.S. Food and Drug Administration. Test Performed by: [facility] [address] Operator Lights: Mendez Alonzo M.D. Ph.D.; CLIA# [id number] Blood 07/19/2021 3:25 PM EDT 07/19/2021 4:08 PM EDT Narrative Resulting Agency Comment Spec In Lab Patricia Briggs MD LAB SEND OUT ORDERAB LES Performing Organization Address [facility]/ZIP Co de Phone Number [facility] [place] [address] * POCT Glucose (07/19/2021 11:53 AM EDT) [facility] Glucose, POC 153 65 - 199 mg/dL [facility] Comment: Supplemental ranges: <140 mg/dL before meals <180 mg/dL all other times of the day Blood 07/19/2021 11:5 3 AM EDT 07/19/2021 11:53 AM EDT Patricia Briggs MD POINT OF CARE TEST O RDERABLES [facility] [place] [place] [address] * (ABNORMAL) Rapid Drug Screen w/o Confirmation, Urine (07/19/2021 10:45 AM EDT) Barbiturates Screen, Urine None Detected None Detected [facility] Comment: The barbiturate screen detects barbiturates [...] Benzodiazepines Screen, Urine None Detected None Detected [facility] Comment: The benzodiazepines screen detects benzodiazepines [...] Cocaine Screen, Urine None Detected None Detected [facility] Comment: The cocaine metabolites screen detects benzoylecgonine (Cocaine Metabolite) at concentrations >150 ng/mL. A ? Presumptive Positive? result indicates that the screening result was positive but has not yet been confirmed by a highly-specific method. As with any screen, occasional false positive results from cross-reacting substances may occur. Not for Medico-Legal Purposes. Methadone Metabolites Screen, Urine None Detected None Detected [facility] Comment: The methadone metabolite screen detects EDDP (major methadone metabolite) at concentrations >100 ng/mL. A ? Presumptive Positive? result indicates that the screening result was positive but has not yet been confirmed by a highly-specific method. As with any screen, occasional false positive results from cross-reacting substances may occur. Not for Medico-Legal Purposes. Opiate Screen, Urine None Detected None Detected [facility] Comment: The opiates screen detects opiates [...] Cannabinoid Screen, Urine None Detected None Detected [facility] Comment: The marijuana metabolites screen detects the THC metabolite (44-lxl-3-carboxy-delta 9-THC) at concentrations >20 ng/mL. A ? Presumptive Positive? result indicates that the screening result was positive but has not yet been confirmed by a highly-specific method. As with any screen, occasional false positive results from cross-reacting substances may occur. Not for Medico-Legal Purposes. Oxycodone Screen, Urine Presumptive Pos(A) None Detected [facility] Comment: The oxycodone screen detects oxycodone and oxymorphone at concentrations >100 ng/mL. A ? Presumptive Positive? result indicates that the screening result was positive but has not yet been confirmed by a highly-specific method. As with any screen, occasional false positive results from cross-reacting substances may occur. Not for Medico-Legal Purposes. Buprenorphine Screen, Urine None Detected None Detected [facility] Comment: The buprenorphine screen detects buprenorphine at concentrations >5 ng/mL. A ? Presumptive Positive? result indicates that the screening result was positive but has not yet been confirmed by a highly-specific method. As with any screen, occasional false positive results from cross-reacting substances may occur. Not for Medico-Legal Purposes. Fentanyl Screen, Urine None Detected None Detected [facility] Comment: The fentanyl screen detects fentanyl at concentrations >2 ng/mL. A ? Presumptive Positive? result indicates that the screening result was positive but has not yet been confirmed by a highly-specific method. As with any screen, occasional false positive results from cross-reacting substances may occur. Not for Medico-Legal Purposes. Tricyclics Screen, Urine None Detected None Detected [facility] Comment: The tricyclics screen detects tricyclic [...] Ethanol Screen, Urine None Detected None Detected [facility] Comment:This urine ethanol a ssay detects ethanol at concentrations >/= 100 mg/L. Amphetamines Screen, Urine None Detected None Detected [facility] Comment: The amphetamine screen detects d-amphetamine and d-methamphetamine at concentrations >300 ng/mL. A ? Presumptive Positive? result indicates that the screening result was positive but has not yet been confirmed by a highly-specific method. As with any screen, occasional false positive results from cross-reacting substances may occur. Not for Medico-Legal Purposes. Adulterants Screen, Urine None Detected None Detected [facility] Comment: No adulteration or dilution of this urine sample was detected. All urine samples submitted for urine drugs of abuse analysis are tested for creatinine concentration, pH, and for the presence of oxidants, nitrites, and chromate. Urine 07/19/2021 10:4 5 AM EDT 07/19/2021 10:55 AM EDT Narrative Resulting Agency Comment Spec In Lab Debi CORMIER CHEMISTRY ORDERABLES [facility] [place] [address] * Rapid Drug Screen, Urine (DARWIN Request) (07/19/2021 10:45 AM EDT) DARWIN Conf Requested No [facility] Comment: Collection date/time has been modified to: 10:45:00. ??Previous collection date/time: 10:09:00. Corrected from No [NA] on 07/19/21 10:56:25 EDT by Kai Butterfield. DARWIN Requested See Comment [facility] Comment: Refer to Rapid Drug Screen w/o Confirmation, Urine for results. Collection date/time has been modified to: 10:45:00. ??Previous collection date/time: 10:09:00. Corrected from See Comment [NA] on 07/19/21 10:56:25 EDT by Kai Butterfield. Urine 07/19/2021 10:4 5 AM EDT 07/19/2021 10:55 AM EDT Narrative Resulting Agency Comment Spec In Lab Patricia Briggs MD URINE ORDERABLES Performing Organization Address City/[facility]/ZIP Co de Phone Number [facility] [place] [address] * POCT Glucose (07/19/2021 8:00 AM EDT) Pathologist [facility] Glucose, POC 129 65 - 199 mg/dL [facility] Comment: Supplemental ranges: <140 mg/dL before meals <180 mg/dL all other times of the day Blood 07/19/2021 8:00 AM EDT 07/19/2021 8:00 AM EDT Patricia Briggs MD POINT OF CARE TEST O RDERABLES [facility] [place] [place] [address] * Transcranial Duplex, complete (07/19/2021 6:05 AM EDT) Pathologist [facility] VB Text Report Department: Vascular Surgery Lab Patient: [id number] (WERO SADLER) CPT: [id number] Referring Physician: SALOME RODRIGUEZ ?? Phone: Indications: [...] VASCUBASE 07/19/2021 6:05 AM EDT Salome Rodriguez [employer] INDUSTRIAL VASCULAR ORDERABLES [facility] * POCT Glucose (07/19/2021 4:02 AM EDT) Glucose, POC 169 65 - 199 mg/dL [facility] Comment: Supplemental ranges: <140 mg/dL before meals <180 mg/dL all other times of the day Blood 07/19/2021 4:02 AM EDT 07/19/2021 4:02 AM EDT Patricia Briggs MD POINT OF CARE TEST O RDERABLES [facility] [place] [place] [address] * Differential, Automated (07/19/2021 1:15 AM EDT) Pathologist [facility] Neutrophil % 66.5 % [facility] Neutrophil Absolute 4.33 1.70 - 6.10 x10(3)/[facility] LABORATORY Lymph % 19.7 % [facility] Lymphocytes Abs 1.3 0.9 - 3.2 x10(3)/[facility] LABORATORY Monocyte % 10.3 % [facility] Monocyte Abs 0.7 0.3 - 0.9 x10(3)/[facility] LABORATORY Eos % 2.8 % [facility] Eosinophils Abs 0.2 0.0 - 0.4 x10(3)/[facility] LABORATORY Basophil % 0.5 % [facility] Baso Absolute 0.0 0.0 - 0.1 x10(3)/[facility] LABORATORY Immature Gran % 0.20 % [facility] Comment: Immature granulocytes(IG's)percentage and absolute count will include metamyelocytes, myelocytes, and promyelocytes. Blood smears from CBCs yielding IG's will be scanned manually for concordance. If this scan disagrees with the automated IG or if promyelocytes are noted, a manual differential will be performed. Immature Gran Absolute 0.01 0.00 - 0.04 x10(3)/[facility] LABORATORY Blood 07/19/2021 1:15 AM EDT 07/19/2021 1:21 AM EDT Narrative Resulting Agency Comment Spec In Lab Abbi CORMIER HEMATOLOGY ORDERABL ES [facility] [place] [place] [address] * (ABNORMAL) Hemogram (07/19/2021 1:15 AM EDT) White Blood Cell 6.5 4.0 - 9.5 x10(3)/[facility] LABORATORY Red Blood Cell 3.50(L) 4.58 - 5.54 x10(6)/[facility] LABORATORY Hemoglobin 10.9(L) 13.7 - 16.5 g/dL [facility] Hematocrit 32.4(L) 40.5 - 48.5 % [facility] Mean Cell Volume 92.6 82.9 - 93.1 [facility] LABORATORY Mean Cell Hemoglobin 31.1 27.5 - 32.1 pg [facility] Mean Cell Hemoglobin Concentration 33.6 32.0 - 35.7 g/dL [facility] Platelet 216 145 - 357 x10(3)/[facility] LABORATORY RDW Standard Deviation 45.0 36.0 - 45.0 [facility] LABORATORY RDW coefficient of variation 13.2 11.4 - 13.8 % [facility] Mean Platelet Volume 10.2 7.6 - 12.9 [facility] LABORATORY NRBC% auto 0.0 % [facility] NRBC Absolute 0.000 0.000 - 0.000 x10(3)/[facility] LABORATORY Blood 07/19/2021 1:15 AM EDT 07/19/2021 1:21 AM EDT Narrative Resulting Agency Comment Spec In Lab Abbi CORMIER HEMATOLOGY ORDERABL ES Performing Organization Address [facility]/ZIP Co de Phone Number [facility] [place] [address] * Phosphorus (07/19/2021 1:15 AM EDT) Phosphorus 3.2 2.5 - 4.5 mg/dL [facility] Blood 07/19/2021 1:15 AM EDT 07/19/2021 1:21 AM EDT Narrative Resulting Agency Comment Spec In Lab Patricia Briggs MD CHEMISTRY ORDERABLES Performing Organization Address [facility] Co de Phone Number [facility] [address] * Magnesium (07/19/2021 1:15 AM EDT) Pathologist [facility] Magnesium 1.06 0.69 - 1.07 mmol/L [facility] Blood 07/19/2021 1:15 AM EDT 07/19/2021 1:21 AM EDT Narrative Resulting Agency Comment Spec In Lab Patricia Briggs MD CHEMISTRY ORDERABLES Performing Organization Address [facility] Co de Phone Number [facility] [address] * (ABNORMAL) Basic Metabolic Panel (non-fasting) (07/19/2021 1:15 AM EDT) Glucose 168 65 - 199 mg/dL [facility] Comment:Diabetes: >=200 mg/d L plus symptoms Blood Urea Nitrogen 9(L) 10 - 20 mg/dL [facility] Creatinine 0.56(L) 0.80 - 1.50 mg/dL [facility] Sodium 138 135 - 145 mmol/L [facility] Potassium 3.6 3.5 - 5.0 mmol/L [facility] Comment: Please note: ??Patients with WBC >100,000 may have falsely elevated Potassium levels. ??For accurate Potassium quantification in these patients send serum separator tube (gold top) for subsequent determinations. ??Contact the Clinical Chemistry Laboratory if there are any questions. Chloride 104 98 - 107 mmol/L [facility] Carbon Dioxide 21(L) 22 - 31 mmol/L [facility] Anion Gap 13 5 - 15 mmol/L [facility] Calcium 8.6 8.5 - 10.5 mg/dL [facility] Est Glomerular Filtration Rate 103 >=60 mL/min/1. 73 m?? [facility] Comment: This patient? s estimated [...] In Lab Patricia Briggs MD CHEMISTRY ORDERABLES [facility] [place] [address] * COVID-19 PCR (07/19/2021 1:10 AM EDT) SARS-CoV-2 RNA (Rapid) Not Detected Not Detected [facility] Comment: This result should be [...] using the Simplexa COVID-19 Direct Assay by Canvas as authorized by the FDA issued Emergency [...] Department of Pathology and Laboratory Medicine at [facility], certified under the Clinical Laboratory Improvement [...] fact sheets at the following FDA website: https://www.fda.gov/medical-devices/zlvabslkqkc-whtensf-2884-twewd-41-ibrgubcwr- use-a cuhgpvxbbgqid-mzlvxgi-hdbuglz/zcgrw-wsfoannukey-uajq SARS-CoV-2 Source [employer] Swab [facility] Nasopharyngeal Swab 07/20/19 1:10 AM EDT 07/19/2021 1:47 AM EDT Comment:Symptoms->Surveillan ce Narrative Resulting Agency Comment Spec In Lab Patricia Briggs MD MICROBIOLOGY - GENER AL ORDERABLES [facility] [place] [address] * POCT Glucose (07/18/2021 11:57 PM EDT) Glucose, POC 158 65 - 199 mg/dL [facility] Comment: Supplemental ranges: <140 mg/dL before meals <180 mg/dL all other times of the day Blood 07/18/2021 11:5 7 PM EDT 07/18/2021 11:57 PM EDT Patricia Briggs MD POINT OF CARE TEST O RDERABLES Performing Organization Address [facility]/ZIP Co de Phone Number [facility] [place] [address] * (ABNORMAL) Urinalysis without microscopic (07/18/2021 10:10 PM EDT) Glucose, Urine Dipstick 100(A) Negative mg/dL [facility] Protein, Urine Dipstick Negative Negative mg/dL [facility] Bilirubin, Urine Dipstick Negative Negative mg/dL [facility] Comment: Clinical correlation required for positive Urine Bilirubin results as false positive may occur with some drugs and drug related products. If a false positive is suspected a serum total bilirubin should be considered if clinically indicated. Urobilinogen, Urine Dipstick Normal Normal mg/dL [facility] pH, Urn (dipstick) 6.0 5.0 - 8.0 [facility] Blood, Urine Dipstick Moderate(A) Negative mg/dL [facility] Ketone, Urine Dipstick Negative Negative mg/dL [facility] Nitrite, Urine Dipstick Negative Negative [facility] Leukocytes, Urine Dipstick Negative Negative [facility] LABORATORY Appearance, Urine Dipstick Clear Clear [facility] Specific [place] Urine Automated 1.020 1.006 - 1.030 [facility] Color, Urine Dipstick Yellow [facility] Urine 07/18/2021 10:1 0 PM EDT 07/18/2021 10:28 PM EDT Narrative Resulting Agency Comment Spec In Lab Patricia Briggs MD URINE ORDERABLES [facility] [place] [address] * Request For 2nd Read CT Head [...] who have questions please contact the health resident care supervisor that requested your imaging first. ? Narrative 07/19/2021 8:15 AM EDT EXAMINATION: REQUEST FOR 2ND READ CT HEAD AND SPINE CLINICAL HISTORY: AMS and visual hallucinations. Recent R ICA TCAR 07/14, Please compare with earlier Head CT; Sending Institution [facility]; Date of exam [id number]; I believe a reinterpretation of this exam may alter care of Patient. Yes TECHNIQUE: CTA carotids and [place] of [place] performed following the intravenous administration of 100 mL Omnipaque 350. Study was performed at [facility] on 07/18/2021 COMPARISON: Angiogram images 07/14/2021 [...] compare with earlier Head CT; Sending Institution [facility];Date of exam [id number]; I believe a reinterpretation of this exam may alter careof Patient. Yes TECHNIQUE: CTA carotids and [place] performed following theintravenous administration of 100 mL Omnipaque 350. Study was performed at [facility] on 07/18/2021 COMPARISON: Angiogram images 07/14/2021 [...] patients who have questions please contactthe health resident care supervisor that requested your imaging first. Salome Rodriguez APRN IMG OUTSIDE INTERPRE TATION ORDERABLES * XR [...] who have questions please contact the health resident care supervisor that requested your imaging first. ? Narrative 07/19/2021 8:38 AM EDT EXAMINATION: XR [...] patients who have questions please contactthe health resident care supervisor that requested your imaging first. Salome Rodriguez APRN IMG DX ORDERABLES * POCT Glucose (07/18/2021 8:40 PM EDT) [facility] Glucose, POC 146 65 - 199 mg/dL [facility] Comment: Supplemental ranges: <140 mg/dL before meals <180 mg/dL all other times of the day Blood 07/18/2021 8:40 PM EDT 07/18/2021 8:40 PM EDT Patricia Briggs MD POINT OF CARE TEST O RDERABLES [facility] [place] [address] * T4 Total (07/18/2021 8:33 PM EDT) Pathologist [facility] T4 Total 6.6 4.6 - 7.9 mcg/dL [facility] Comment: Reference Interval (mcg/dL): Females: ??First Trimester: 6.3-13.5 ??Second Trimester: 7.1-14.3 ??Third Trimester: 6.9-14.1 Blood Venous Draw / Unknown 07/18/2021 8:33 PM EDT 07/18/2021 9:03 PM EDT Narrative Resulting Agency Comment Spec In Lab Salome Rodriguez APRN CHEMISTRY ORDERABLES Performing Organization Address City/[facility]/ZIP Co de Phone Number [facility] [address] * Type and Screen Validity (07/18/2021 8:33 PM EDT) [facility] T&S only valid at [facility] LABORATORY Comment:This Type and Screen result is only valid at the [facility] Blood 07/18/2021 8:33 PM EDT 07/18/2021 8:45 PM EDT Narrative Resulting Agency Comment Spec In Lab Abbi CORMIER BLOOD BANK LAB ORDE PROSPER Performing Organization Address [facility] Co de Phone Number [facility] [place] [address] * ABORH Recheck Status (07/18/2021 8:33 PM EDT) Pathologist [facility] ABORH Type Recheck Completed [facility] Blood 07/18/2021 8:33 PM EDT 07/18/2021 8:45 PM EDT Narrative Resulting Agency Comment Spec In Lab Abbi CORMIER BLOOD BANK LAB ORDE PROSPER Performing Organization Address [facility] Co de Phone Number [facility] [place] [address] * Differential, Automated (07/18/2021 8:33 PM EDT) Neutrophil % 64.1 % [facility] Neutrophil Absolute 4.57 1.70 - 6.10 x10(3)/[facility] LABORATORY Lymph % 21.2 % [facility] Lymphocytes Abs 1.5 0.9 - 3.2 x10(3)/[facility] LABORATORY Monocyte % 10.7 % [facility] Monocyte Abs 0.8 0.3 - 0.9 x10(3)/[facility] LABORATORY Eos % 3.4 % [facility] Eosinophils Abs 0.2 0.0 - 0.4 x10(3)/[facility] LABORATORY Basophil % 0.3 % [facility] Baso Absolute 0.0 0.0 - 0.1 x10(3)/[facility] LABORATORY Immature Gran % 0.30 % [facility] Comment: Immature granulocytes(IG's)percentage and absolute count will include metamyelocytes, myelocytes, and promyelocytes. Blood smears from CBCs yielding IG's will be scanned manually for concordance. If this scan disagrees with the automated IG or if promyelocytes are noted, a manual differential will be performed. Immature Gran Absolute 0.02 0.00 - 0.04 x10(3)/[facility] LABORATORY Blood 07/18/2021 8:33 PM EDT 07/18/2021 8:48 PM EDT Narrative Resulting Agency Comment Spec In Lab Abbi CORMIER HEMATOLOGY ORDERABL ES [facility] [place] [place] [address] * (ABNORMAL) Hemogram (07/18/2021 8:33 PM EDT) White Blood Cell 7.1 4.0 - 9.5 x10(3)/[facility] LABORATORY Red Blood Cell 3.78(L) 4.58 - 5.54 x10(6)/[facility] LABORATORY Hemoglobin 11.8(L) 13.7 - 16.5 g/dL [facility] Hematocrit 35.1(L) 40.5 - 48.5 % [facility] Mean Cell Volume 92.9 82.9 - 93.1 fL [facility] Mean Cell Hemoglobin 31.2 27.5 - 32.1 pg [facility] Mean Cell Hemoglobin Concentration 33.6 32.0 - 35.7 g/dL [facility] Platelet 219 145 - 357 x10(3)/mc L [facility] RDW Standard Deviation 45.4(H) 36.0 - 45.0 fL [facility] RDW coefficient of variation 13.4 11.4 - 13.8 % [facility] Mean Platelet Volume 9.9 7.6 - 12.9 fL [facility] NRBC% auto 0.0 % [facility] NRBC Absolute 0.000 0.000 - 0.000 x10(3)/mc L [facility] Blood 07/18/2021 8:33 PM EDT 07/18/2021 8:48 PM EDT Narrative Resulting Agency Comment Spec In Lab Abbi CORMIER HEMATOLOGY ORDERABL ES Performing Organization Address City/[facility]/ZIP Co de Phone Number [facility] [address] * Antibody screen (07/18/2021 8:33 PM EDT) Ab Screen Interp Negative [facility] Expires at [id number] on: 07/21/2021 [facility] Blood 07/18/2021 8:33 PM EDT 07/18/2021 8:45 PM EDT Narrative Resulting Agency Comment Spec In Lab Abbi CORMIER BLOOD BANK LAB ORDE RABLES [facility] [place] [address] * ABO/Rh Typing (07/18/2021 8:33 PM EDT) ABORH Type O Pos [facility] Blood 07/18/2021 8:33 PM EDT 07/18/2021 8:45 PM EDT Narrative Resulting Agency Comment Spec In Lab Abbi De Leon [place] BLOOD BANK LAB ORDE RABEZEKIEL Performing Organization Address [facility]/ZIP Co de Phone Number [facility] [place] [address] * (ABNORMAL) Ammonia (07/18/2021 8:33 PM EDT) Pathologist [facility] Ammonia 12(L) 16 - 60 mcmol/L [facility] Blood 07/18/2021 8:33 PM EDT 07/18/2021 8:48 PM EDT Narrative Resulting Agency Comment Spec In Lab Salome Fernandes Jennifer [employer]CH[employer] INDUSTRIAL CHEMISTRY ORDERABLES Performing Organization Address [facility]/ZIP Co de Phone Number [facility] [address] * (ABNORMAL) Hepatic Function Panel (07/18/2021 8:33 PM EDT) [facility] Protein, Total 6.7 6.1 - 8.0 g/dL [facility] Albumin 4.1 3.2 - 5.2 g/dL [facility] Aspartate Aminotransferase 22 0 - 39 unit/L [facility] Alanine Aminotransferase 16 0 - 55 unit/L [facility] Alkaline Phosphatase 96 40 - 130 unit/L [facility] Bilirubin, Total 1.4(H) 0.2 - 1.3 mg/dL [facility] Bilirubin, Direct 0.3 0.0 - 0.3 mg/dL [facility] Blood 07/18/2021 8:33 PM EDT 07/18/2021 8:48 PM EDT Narrative Resulting Agency Comment Spec In Lab Salome Rodriguez APRN CHEMISTRY ORDERABLES [facility] [place] [address] * APTT (07/18/2021 8:33 PM EDT) Partial Thromboplastin Time 30 25 - 37 sec [facility] Comment: The PTT is NOT appropriate for heparin monitoring. Use the Anti-Xa level for heparin monitoring (HEP UFH) or LMWH monitoring (HEP LMW). A PTT less than 37 seconds generally indicates adequate hemostasis. Blood 07/18/2021 8:33 PM EDT 07/18/2021 8:48 PM EDT Narrative Resulting Agency Comment Spec In Lab Salome Rodriguez [employer] INDUSTRIAL HEMATOLOGY ORDERABLE S Performing Organization Address [facility]/ZIP Co de Phone Number [facility] [address] * Prothrombin Time (07/18/2021 8:33 PM EDT) Prothrombin Time 12.3 9.4 - 12.5 sec [facility] International Normalization Ratio 1.1 [facility] Comment: An INR <2.0 indicates [...] Agency Comment Spec In Lab Salome Rodriguez [employer] INDUSTRIAL HEMATOLOGY ORDERABLE S [facility] [place] [address] * (ABNORMAL) Hemoglobin A1c (07/18/2021 8:33 PM EDT) Hemoglobin A1c 7.8(H) 4.3 - 5.6 % [facility] Comment: Reference Range: 4.3 - [...] Mellitus, Diabetes Care 2013; 36: Suppl. 1, E37-14 Estimated Average Glucose See note mg/dL [facility] Comment: Estimated Average Glucose not [...] into estimated average glucose values. ??Diabetes Care 2008:31(8):0822-0190. Blood 07/18/2021 8:33 PM EDT 07/18/2021 8:48 PM EDT Narrative Resulting Agency Comment Spec In Lab Salome Colemano AIR CONDITIONING MECHANIC INDUSTRIAL CHEMISTRY ORDERABLES Performing Organization Address City/[facility]/ZIP Co de Phone Number [facility] [place] [address] * (ABNORMAL) TSH (07/18/2021 8:33 PM EDT) Thyroid Stimulating Hormone 4.86(H) 0.27 - 4.20 mcIU/mL [facility] Comment: Reference Interval (mcIU/mL): Females: ??First Trimester: 0.23-3.88 ??Second Trimester: 0.22-3.90 ??Third Trimester: 0.44-4.66 Blood 07/18/2021 8:33 PM EDT 07/18/2021 8:48 PM EDT Narrative Resulting Agency Comment Spec In Lab Salome Ketto Virginiao AIR CONDITIONING MECHANIC INDUSTRIAL CHEMISTRY ORDERABLES Performing Organization Address [facility] Co de Phone Number [facility] [place] [address] * Lipid Panel (Reflex Direct LDL) (07/18/2021 8:33 PM EDT) Cholesterol, Total 151 mg/dL [facility] Comment: Lower Risk: <200 mg/dL Average Risk: 200-239 mg/dL Higher Risk: >ad=266 mg/dL Triglyceride 162 mg/dL [facility] Comment: Average Risk/Lower Risk: <150 mg/dL Borderline High Risk: 150-199 mg/dL High Risk: 200-499 mg/dL Very High Risk: >ee=539 mg/dL HDL Cholesterol 38 mg/dL [facility] Comment: Males: ?? Higher Risk: <40 mg/dL Females: ?? Higher Risk: <50 mg/dL LDL Cholesterol 81 mg/dL [facility] Comment: Lowest Risk: <100 mg/dL Lower Risk: 100-129 mg/dL Borderline High Risk: 130-159 mg/dL High Risk: 160-189 mg/dL Very High Risk: >gh=298 mg/dL Cholesterol/HDL Ratio 4.0 ratio [facility] Lipid Interpretation See Note [facility] Comment: Lipid management should be guided by a patient? s ASCVD risk, goals and preferences. ACC/AHA Guidelines recommend high intensity statin if clinical ASCVD or LDL greater than or equal to 190 mg/dL. http://[employer].com/XKG-POS-Kbbosuunr Adults aged 40-75 with LDL 70-189 mg/dL should have their 10 year ASCVD risk estimated with the ACC/AHA ASCVD risk graphic technician http://tools.acc.org/FANXT-Jrxx-Dfctbrdqx/ Statin should be discussed if risk greater [...] Rodriguez APRN CHEMISTRY ORDERABLES Performing Organization Address [facility]/ZIP Co de Phone Number [facility] [place] [address] * Phosphorus (07/18/2021 8:33 PM EDT) Phosphorus 2.7 2.5 - 4.5 mg/dL [facility] Blood 07/18/2021 8:33 PM EDT 07/18/2021 8:48 PM EDT Narrative Resulting Agency Comment Spec In Lab Patricia Briggs MD CHEMISTRY ORDERABLES Performing Organization Address [facility]/ZIP Co de Phone Number [facility] [address] * Magnesium (07/18/2021 8:33 PM EDT) Magnesium 0.84 0.69 - 1.07 mmol/L [facility] Blood 07/18/2021 8:33 PM EDT 07/18/2021 8:48 PM EDT Narrative Resulting Agency Comment Spec In Lab Patricia Briggs MD CHEMISTRY ORDERABLES [facility] [place] [address] * (ABNORMAL) Basic Metabolic Panel (non-fasting) (07/18/2021 8:33 PM EDT) Glucose 160 65 - 199 mg/dL [facility] Comment:Diabetes: >=200 mg/d L plus symptoms Blood Urea Nitrogen 9(L) 10 - 20 mg/dL [facility] Creatinine 0.62(L) 0.80 - 1.50 mg/dL [facility] Sodium 138 135 - 145 mmol/L [facility] Potassium 3.7 3.5 - 5.0 mmol/L [facility] Comment: Please note: ??Patients with WBC >100,000 may have falsely elevated Potassium levels. ??For accurate Potassium quantification in these patients send serum separator tube (gold top) for subsequent determinations. ??Contact the Clinical Chemistry Laboratory if there are any questions. Chloride 102 98 - 107 mmol/L [facility] Carbon Dioxide 22 22 - 31 mmol/L [facility] Anion Gap 14 5 - 15 mmol/L [facility] Calcium 9.0 8.5 - 10.5 mg/dL [facility] Est Glomerular Filtration Rate 98 >=60 mL/min/1. 73 m?? [facility] Comment: This patient? s estimated [...] Briggs MD CHEMISTRY ORDERABLES Performing Organization Address City/[facility]/ZIP Co de Phone Number [facility] [place] [address] * Lactate, whole blood, send to lab ([facility] (07/18/2021 8:33 PM EDT) Pathologist [facility] Lactate WB 1.2 0.5 - 2.2 mmol/L [facility] Blood 07/18/2021 8:33 PM EDT 07/18/2021 8:48 PM EDT Narrative Resulting Agency Comment Spec In Lab Patricia Briggs MD CHEMISTRY ORDERABLES Performing Organization Address [facility] Co de Phone Number [facility] [place] [address] * EKG 12 Lead (07/18/2021 8:14 PM EDT) Ventricular rate 76 BPM MUSE SYSTEM Atrial Rate 76 BPM MUSE SYSTEM P-R Interval 168 ms MUSE SYSTEM QRS Duration 98 ms MUSE SYSTEM Q-T Interval 402 ms MUSE SYSTEM QTC Calculated (Bezet) 452 ms MUSE SYSTEM Calculated P [place] 45 degrees MUSE SYSTEM Calculated R [place] 2 degrees MUSE SYSTEM Calculated T [place] 24 degrees MUSE SYSTEM INTERPRETATION Normal sinus rhythm Normal ECG When compared with ECG of 06-OCT-2020 14:46, No significant change was found Confirmed by MD Jay Danette ([id number]) on 07/19/2021 3:51:56 PM MUSE SYSTEM 07/18/2021 8:14 PM EDT 07/19/2021 3:51 PM EDT Patricia Briggs MD ECG ORDERABLES [facility] documented in this encounter Visit Diagnoses [...] 25.8 mg, Oral, ONCE, 1 dose, On [facility] 07/20/21 at 1030, Routine Given 07/20/2021 [...] 1 dose, On Sat07/19/21 at 0245 New 07/19/2021 2:10 AM EDT sodium chloride 0.9% infusion 75 mL/hr, Intravenous, CONTINUOUS, Starting on Sat07/19/21 at 0245, Until Sat07/19/21 at 0946 New 07/19/2021 2:10 AM EDT 75 mL/hr 75 [...] AM EDT 500 mg 110 mL/hr New 07/20/2021 9:12 PM EDT 500 mg 110 mL/hr New 07/20/2021 2:04 PM EDT 500 mg 110 mL/hr thiamine (Vitamin B1) tablet 100 mg 100 mg, Per NG tube, DAILY, First dose (after last modification) on Sat07/19/21 at 0900, Until Discontinued, Routine Given 07/19/2021 8:23 AM EDT 100 mg documented in this encounter Active and Recently Administered Medications Times are shown in EDT. Scheduled Medication Order 07/19/2021 07/20/202107/2107/21/2021 amLODIPine (Norvasc) tablet 10 mg (CANCELED) 10 mg, Per NG tube, DAILY, First dose (after last modification) on Sat07/19/21 at 0900, Until Discontinued, Routine 0823 (Given - Provider: Lashonda Chin, AYE) amLODIPine (Norvasc) tablet 10 mg 10 [...] Discontinued, Routine 08 (Given - Provider: Tonja Coe RN) 0820 [...] on Sat07/19/21 at 0800, Until Discontinued, Routine 08 (Given - Provider: Lashonda Chin, AYE) carvediloL (Coreg) tablet 25 mg (COMPLETED) 25 mg, Per NG tube, ONCE, 1 dose, On Sat07/19/21 at 0200, Routine 0124 (Given - Provider: Gypsy Peters) carvediloL (Coreg) tablet 25 mg 25 mg, Oral, 2 TIMES DAILY WITH MEALS, First dose (after last modification) on Sat07/19/21 at 1700, Until Discontinued, Routine 1641 (Given - Provider: Jackie L Parris, RN) 0829 (Given - Provider: Tonja Coe [...] Trinh Jacobson, AYE)1403 (Given - Provider: Tonja Coe RN)2110 (Given - Provider: Abbi Kemp, AYE) 0606 [...] Kemp, AYE) 0015 (Given - Provider: Abbi Kemp, AYE)0406 (Given - Provider: Abbi Kemp, AYE)0817 (Given - Provider: Marixa Garcia V, RN)1158 (Given - Provider: Marixa Garcia V RN) isosorbide mononitrate CR (Imdur) tablet 30 mg 30 mg, Oral, NIGHTLY, First dose on Sat07/20/21 at 2100, Until Discontinued, DO NOT CRUSH OR OPEN, Routine 2113 (Given - Provider: Abbi Kemp, AYE) lisinopriL (Zestril) tablet 20 mg (CANCELED) 20 mg, Per NG tube, DAILY, First dose (after last modification) on Sat07/19/21 at 0900, Until Discontinued, Routine 08 (Given - Provider: Lashonda Chin, RN) lisinopriL (Zestril) tablet 20 mg (CANCELED) 20 mg, Oral, DAILY, First dose (after last modification) on Sat07/20/21 at 0900, Until Discontinued, Routine 08 (Given - Provider: Tonja Coe, AYE) lisinopriL (Zestril) tablet 20 mg (CANCELED) 20 mg, Oral, DAILY, First dose (after last modification) on Sat07/21/21 at 0900, Until Discontinued, Routine 08 (Given - Provider: Marixa Garcia V, RN) lisinopriL (Zestril) tablet 20 mg (COMPLETED) 20 mg, Oral, ONCE, 1 dose, On Sat07/21/21 at 1000, Routine 0958 (Given - Provider: Marixa Garcia V, RN) lisinopriL (Zestril) tablet 40 mg 40 mg, Oral, DAILY, First dose (after last modification) on Sat07/22/21 at 0900, Until Discontinued, Routine multivitamin with minerals (Thera M) tablet 1 tablet 1 tablet, Per NG tube, DAILY, First dose (after last modification) on Sat07/19/21 at 0900, Until Discontinued, Routine 08 (Given - Provider: Lashonda Chin RN) 08 (Given - Provider: Tonja Coe, AYE) 0820 (Given - Provider: Marixa Garcia V, RN) senna (Senokot) tablet 25.8 mg (COMPLETED) [...] on Sat07/19/21 at 2100, Until Discontinued, Routine 2156 (Given - Provider: Trinh Jacobson, RN) 0828 (Given - Provider: Tonja Coe, RN)2113 (Given - Provider: Abbi Kemp, AYE) 0900 (Not Given - Provider: Marixa Garcia V RN - Reason: Contraindicated) sodium chloride 0.9% [...] Jacobson, AYE)2227 (Stopped - Provider: Trinh Jacobson, RN) 0830 (New Bag - Provider: Tonja Coe, AYE)0900 (Stopped - Provider: Tonja Coe, AYE)1404 (New Bag - Provider: Tonja Coe, AYE)1434 (Stopped - Provider: Tonja Coe, RN)2111 (New Bag - Provider: Abbi Kemp, AYE)214 (Stopped - Provider: Abbi Kemp RN) 0823 [...] on Sat07/18/21 at 2008, Until Sat07/21/21 at 164, Constipation, Administer if needed per patient's routine or if no bowel movement within 48 hours to achieve: (1) One bowel movement every 48 hours, AND (2) Without straining. If multiple PRN bowel medications ordered, start with magnesium hydroxide, then bisacodyl. Multiple medications may be given concomitantly for constipation., Routine 1249 (Given - Provider: Tonja Coe RN) dextrose 10% infusion(Linked Group 2) 250 [...] RN) 1007 (Given - Provider: Tonja Coe, RN)1209 (Given - Provider: Tonja Coe, RN)1507 (Given - Provider: Tonja Coe, AYE)1947 (Given - Provider: Abbi Kemp, RN) 0817 [...] Routine documented in this encounter Care Teams Dental Instructor Relationship Specialty Start Date End Date Alo Carey DO [address] [place] [address] [place] [phone] PCP - General Internal Medicine 08/31/20 07/03/23 documented as of this encounter
--- OUTSIDE RECORDS SUMMARY | 2024-03-26 10:39 | XMS_ITS | Encounter Summary ---
[place] [address] Care Team Providers Care Edger Hand Name Role Phone YungAlo santiago Primary Care Provider [phone] Encounter Details Date Type Department Care Team (Late st Contact Info) Description 08/02/2021 Telephone [place] [phone] Kaelyn Capps Social History Tobacco Use Types [...] AM EST Office Visit Hematology/Oncology at [address] [phone] Cl Hess MD [facility] [place] [address] [address] [place] [address] 04/09/2024 10:00 AM EST Infusion Hematology Oncology at [address] [phone] 04/23/2024 9:30 AM EST Office Visit Hematology/Oncology at [address] [phone] Cl Hess MD [facility] [place] [address] [place] [address] 04/23/2024 10:00 AM EST Infusion Hematology Oncology at [address] [phone] 05/18/2024 4:30 PM EDT TH Visit (TeleHealth) [place] [address] Malachi Rothman MD [facility] [place] [address] 09/24/2024 9:00 AM EDT Office Visit Radiation Oncology at [address] [phone] Ping Moore PA [facility] [place] [address] documented as of this encounter Visit Diagnoses Not on filedocumented in this encounter Care Teams Edger Hand Relationship Specialty Start Date End Date Alo Carey DO [address] [place] [address] [place] [phone] PCP - General Internal Medicine 08/31/20 07/03/23 documented as of this encounter
--- OUTSIDE RECORDS SUMMARY | 2024-03-26 10:39 | XMS_ITS | Encounter Summary ---
[place] [address] Care Team Providers Care Milling Machine Tender Name Role Phone Alo Carey Primary Care Provider [phone] Encounter Details Date Type Department Care Team (Late st Contact Info) Description 07/27/2021 3:15 PM EDT Office Visit Radiation Oncology at [address] [phone] Bigg Peters MD [address] [place] [address] [place] [address] Malignant neoplasm of prostate Social [...] from the original note were not included. [facility] Medicine Radiation Oncology Radiation Oncology [...] bite. Looking forward to dancing and singing [employer] at [employer] celebration this weekend. GI Diarrhea - attributes [...] placed in this encounter. ??? National Cancer [place] (NCI) [facility] Cancer [facility] ??? [employer] Commission on Cancer (ACS Joanna) Accredited Cancer Program ??? [employer] (ACR) Accredited Radiation Oncology Program documented in this encounter Plan of Treatment Upcoming Encounters Date Type Department Care Team (Late st Contact Info) Description 04/09/2024 9:30 AM EST Office Visit Hematology/Oncology at [address] [phone] Cl Hess MD [facility] [place] [address] [address] HEMATOLOGY [place] [address] 04/09/2024 10:00 AM EST Infusion Hematology Oncology at [address] [phone] 04/23/2024 9:30 AM EST Office Visit Hematology/Oncology at [address] [phone] Cl Hess MD [facility] [place] [address] [address] HEMATOLOGY [place] [address] 04/23/2024 10:00 AM EST Infusion Hematology Oncology at [address] [phone] 05/18/2024 4:30 PM EDT TH Visit (TeleHealth) [place] [address] Malachi Rothman MD [facility] [place] [address] 09/24/2024 9:00 AM EDT Office Visit Radiation Oncology at [address] [phone] Ping Moore PA [facility] DR HEMATOLOGY [place] [address] documented as of this encounter Visit Diagnoses Diagnosis Malignant neoplasm of prostate documented in this encounter Care Teams Milling Machine Tender Relationship Specialty Start Date End Date Alo Carey DO [address] [place] [address] [place] [phone] PCP - General Internal Medicine 08/31/20 07/03/23 documented as of this encounter
--- OUTSIDE RECORDS SUMMARY | 2024-03-26 10:39 | XMS_ITS | Encounter Summary ---
[place] [address] Care Team Providers Care Groover And Striper Operator Name Role Phone Alo Carey Primary Care Provider [phone] Encounter Details Date Type Department Care Team (Late st Contact Info) Description 08/10/2021 1:00 PM EDT Office Visit Radiation Oncology at [address] [phone] Bigg Peters MD [address] [place] [address] [place] [address] Malignant neoplasm of prostate Social [...] from the original note were not included. [facility] Medicine Radiation Oncology Radiation Oncology [...] to bed or chair Medications Medications 08/04/21 3967 Medication Sig Taking? naproxen sodium (ANAPROX) 220 [...] placed in this encounter. ??? [employer] (NCI) Comprehensive Cancer Center ??? [employer] Commission on Cancer (ACS Joanna) Accredited Cancer Program ??? [employer] (ACR) Accredited Radiation Oncology Program documented in this encounter Plan of Treatment Upcoming Encounters Date Type Department Care Team (Late st Contact Info) Description 04/09/2024 9:30 AM EST Office Visit Hematology/Oncology at [address] [phone] Cl Hess MD [facility] [place] [address] Yessi Renee APRN [address] [place] [address] DR [place] [address] 04/09/2024 10:00 AM EST Infusion Hematology Oncology at [address] [phone] 04/23/2024 9:30 AM EST Office Visit Hematology/Oncology at [address] [phone] Cl Hess MD [facility] [place] [address] Yessi Renee APRN [address] [place] [address] DR HEMATOLOGY AND ONCOLOGY [place], [place] [address] 04/23/2024 10:00 AM EST Infusion Hematology Oncology at [address] [phone] 05/18/2024 4:30 PM EDT TH Visit (TeleHealth) [place] [address] Malachi Rothman MD [facility] [place] [address] 09/24/2024 9:00 AM EDT Office Visit Radiation Oncology at [address] [phone] Ping Moore PA [facility] [place] [address] documented as of this encounter Visit Diagnoses Diagnosis Malignant neoplasm of prostate documented in this encounter Care Teams Groover And Striper Operator Relationship Specialty Start Date End Date Alo Carey DO [address] [place] [address] [place] [address] PCP - General Internal Medicine 08/31/20 07/03/23 documented as of this encounter
--- OUTSIDE RECORDS SUMMARY | 2024-03-26 10:39 | XMS_ITS | Encounter Summary ---
Author Organization [facility] [place] [address] Care Team Providers Care Wool Classer Name Role Phone Alo Carey DO Primary Care Provider [phone] Encounter Details Date Type Department Care Team (Late st Contact Info) Description 07/18/2021 12:00 PM EDT Ancillary Procedure Radiology Library at [facility] [place] [address] Alo Carey DO [address] [place] [phone] Social History Tobacco Use Types Packs/Day Years [...] AM EST Office Visit Hematology/Oncology at [address] [phone] Cl Hess MD [facility] [place] [address] [address] HEMATOLOGY AND ONCOLOGY [place], [place] [phone] 04/09/2024 10:00 AM EST Infusion Hematology Oncology at [address] [phone] 04/23/2024 9:30 AM EST Office Visit Hematology/Oncology at [address] [phone] Cl Hess MD [facility] [place] [address] [address] HEMATOLOGY AND ONCOLOGY [place], [place] [phone] 04/23/2024 10:00 AM EST Infusion Hematology Oncology at [address] [phone] 05/18/2024 4:30 PM EDT TH Visit (TeleHealth) [place] [address] Malachi Rothman MD [facility] [place] [address] 09/24/2024 9:00 AM EDT Office Visit Radiation Oncology at [address] [phone] Ping Moore PA [facility] [place] [address] documented as of this encounter Procedures Procedure Name Priority Date/Time Associated Diagnosis Comments FILM LIBRARY STORAGE ONLY CT HEAD Routine 07/18/2021 11:56 AM EDT documented in this encounter Results * Film Library- Storage Only CT Head (07/18/2021 11:56 AM EDT) Narrative RAD - 07/18/2021 11:56 AM EDT This exam is auto-finalizing. It's purpose is for storage only. Alo Carey DO Rk FILM LIBRARY ORD ERABLES Performing Organization Address City/State/[facility] Co de Phone Number [place], [place] documented in this encounter Visit Diagnoses Not on filedocumented in this encounter Care Teams Wool Classer Relationship Specialty Start Date End Date Alo Carey DO [address] [place] [address] [place] [address] PCP - General Internal Medicine 08/31/20 07/03/23 documented as of this encounter
--- OUTSIDE RECORDS SUMMARY | 2024-03-26 10:40 | XMS_ITS | Encounter Summary ---
[place] [address] Care Team Providers Care Contracting Support Specialist Name Role Phone YungAlo santiago Primary Care Provider Encounter Details Date Type Department Care Team (Late st Contact Info) Description 07/03/2021 Telephone Radiation Oncology at [address] [phone] Nicole Bhatt RN Social History [...] AM EST Office Visit Hematology/Oncology at [address] [phone] Cl Hess MD [facility] [place] [address] [address] HEMATOLOGY AND ONCOLOGY [place], [place] [address] 04/09/2024 10:00 AM EST Infusion Hematology Oncology at [address] [phone] 04/23/2024 9:30 AM EST Office Visit Hematology/Oncology at [address] [phone] Cl Hess MD [facility] [place] [address] [address] [place] [address] 04/23/2024 10:00 AM EST Infusion Hematology Oncology at [address] [phone] 05/18/2024 4:30 PM EDT TH Visit (TeleHealth) [place] [address] Malachi Rothman MD [facility] [place] [address] 09/24/2024 9:00 AM EDT Office Visit Radiation Oncology at [address] [phone] Ping Moore PA [facility] [place] [address] documented as of this encounter Visit Diagnoses Not on filedocumented in this encounter Care Teams Contracting Support Specialist Relationship Specialty Start Date End Date Alo Carey DO [address] [place] [address] [place] [phone] PCP - General Internal Medicine 08/31/20 07/03/23 documented as of this encounter
--- OUTSIDE RECORDS SUMMARY | 2024-03-26 10:40 | XMS_ITS | Encounter Summary ---
[place] [address] Care Team Providers Care Cloth Finishing Range Tender Name Role Phone Alo Carey DO Primary Care Provider [phone] Encounter Details Date Type Department Care Team (Late st Contact Info) Description 06/16/2021 Orders [place] [phone] Gordo Beaver MD Malignant neoplasm of prostate [...] AM EST Office Visit Hematology/Oncology at [address] [phone] Cl Hess MD [facility] [place] [address] HEMATOLOGY AND ONCOLOGY [place], [place] [address] 04/09/2024 10:00 AM EST Infusion Hematology Oncology at [address] [phone] 04/23/2024 9:30 AM EST Office Visit Hematology/Oncology at [address] [phone] Cl Hess MD [facility] [place] [address] [address] HEMATOLOGY AND ONCOLOGY [place], [place] [address] 04/23/2024 10:00 AM EST Infusion Hematology Oncology at [address] [phone] 05/18/2024 4:30 PM EDT TH Visit (TeleHealth) [place] [address] Malachi Rothman MD [facility] [place] [address] 09/24/2024 9:00 AM EDT Office Visit Radiation Oncology at [address] [phone] Ping Moore PA [facility] DR HEMATOLOGY [place] [address] documented as of this encounter Visit Diagnoses Diagnosis Malignant neoplasm of prostate documented in this encounter Care Teams Cloth Finishing Range Tender Relationship Specialty Start Date End Date Alo Carey DO [address] [place] [address] [place] [phone] PCP - General Internal Medicine 08/31/20 07/03/23 documented as of this encounter
--- OUTSIDE RECORDS SUMMARY | 2024-03-26 10:40 | XMS_ITS | Encounter Summary ---
[place] [address] Care Team Providers Care Hand Thermal Cutter Name Role Phone Alo Carey DO Primary Care Provider [phone] Encounter Details Date Type Department Care Team (Late st Contact Info) Description 06/28/2021 Notes Only Radiation Oncology at [address] [phone] Bigg Peters MD [address] [place] [address] [place] [address] Social History Tobacco Use Types [...] ] Prescriptions to get filled: Navid chan [place] Prescription for Antibiotic: to prevent infection [ [...] will receive separate instructions specifically from the [facility] concerning your exact arrival time and what you need to do to prepare for this. Date: 07/11 around 1:00 ?? Your planning session (simulation) will be done at : [ x ] [facility] at the Radiation Oncology Department section 2K [ ] [facility] [place], [place] [Date: 07/11/21 ] [Time:arrive at 2:30 [...] of these instructions. How to reach us: [facility] [phone] For weekends and after hours: Call [facility] ask for the test preparation tutor radiation oncologis documented in this encounter Plan of Treatment Upcoming Encounters Date Type Department Care Team (Late st Contact Info) Description 04/09/2024 9:30 AM EST Office Visit Hematology/Oncology at [address] [phone] Cl Hess MD [facility] [place] [address] Yessi Renee [address] HEMATOLOGY AND ONCOLOGY [place], [place] [phone] 04/09/2024 10:00 AM EST Infusion Hematology Oncology at [address] [address] 04/23/2024 9:30 AM EST Office Visit Hematology/Oncology at [address] [address] Cl Hess MD [facility] [place] [address] Yessi Renee [address] [place] [address] 04/23/2024 10:00 AM EST Infusion Hematology Oncology at [address] [address] 05/18/2024 4:30 PM EDT TH Visit (TeleHealth) [place] [address] Malachi Rothman MD [facility] [address] 09/24/2024 9:00 AM EDT Office Visit Radiation Oncology at [address] [address] Ping Moore PA [facility] [place] [address] documented as of this encounter Visit Diagnoses Diagnosis Malignant neoplasm of prostate documented in this encounter Care Teams Hand Thermal Cutter Relationship Specialty Start Date End Date Alo Carey DO [address] [place] [address] [place] [address] PCP - General Internal Medicine 08/31/20 07/03/23 documented as of this encounter
--- OUTSIDE RECORDS SUMMARY | 2024-03-26 10:40 | XMS_ITS | Encounter Summary ---
[place] [address] Care Team Providers Care Bag End Sewer Name Role Phone YungAlo santiago Primary Care Provider [phone] Encounter Details Date Type Department Care Team (Late st Contact Info) Description 07/06/2021 Telephone Radiation Oncology at [address] [address] Juli Tripathi RN Social History [...] Post-Procedure Phone Note Name: Wero Sadler Adwoa#: [id number] : 1950 Date/Time of Call: 07/06/21 Procedure: [...] YES NO x Comments/interventions: Section Radiation Oncology [facility] documented in this encounter Plan of Treatment Upcoming Encounters Date Type Department Care Team (Late st Contact Info) Description 04/09/2024 9:30 AM EST Office Visit Hematology/Oncology at [address] [phone] Cl Hess MD [facility] [place] [address] Yessi Renee APRN [address] [place] [address] DR HEMATOLOGY AND ONCOLOGY [place], [place] [address] 04/09/2024 10:00 AM EST Infusion Hematology Oncology at [address] [phone] 04/23/2024 9:30 AM EST Office Visit Hematology/Oncology at [address] [phone] Cl Hess MD [facility] [place] [address] Yessi Renee APRN [address] [place] [address] DR HEMATOLOGY AND ONCOLOGY [place], [place] [address] 04/23/2024 10:00 AM EST Infusion Hematology Oncology at [address] [phone] 05/18/2024 4:30 PM EDT TH Visit (TeleHealth) [place] [address] Malachi Rothman MD [facility] [place] [address] 09/24/2024 9:00 AM EDT Office Visit Radiation Oncology at [address] [phone] Ping Moore PA [facility] DR [place] [address] documented as of this encounter Visit Diagnoses Not on filedocumented in this encounter Care Teams Bag End Sewer Relationship Specialty Start Date End Date Alo Carey DO [address] [place] [address] [place] [phone] PCP - General Internal Medicine 08/31/20 07/03/23 documented as of this encounter
--- OUTSIDE RECORDS SUMMARY | 2024-03-26 10:40 | XMS_ITS | Encounter Summary ---
[place] [address] Care Team Providers Care Ceramic Products Sales Engineer Name Role Phone YungAlo santiago Primary Care Provider [phone] Reason for Visit * Auth/Cert Specialty Diagnoses [...] Expiration Date Visits Re quested Visits Authorized [id number] 1 1 Encounter Details Date Type Department Care Team (Late st Contact Info) Description 07/14/2021 8:41 AM EDT Anesthesia [place] [address] Jasmin Cunningham MD [facility] DR [place] [address] Radha Hogue CRNA [facility] [place] [address] Anesthesia Record Procedure Summary Procedure Name Responsible [...] 07/17/21; 1113 07/14/21 0836 by Radha Hogue, MACHINE TRIMMER 07/17/21 111 by Inga Joel, RN ETT Mask Ventilation: Difficult (3); ETT Type: Cuffed, Oral; ETT Size: 7.5 mm; Mac Blade: 4; Notes: Asleep, Stylette, Pre-O2, Cricoid Pressure; Attempts: 1; Laryngoscopy Grade: 2; ETT Placement Verified By: Capnometry, Visual; Secured at Teeth: 23 cm; Inserted by: [facility] nicker; Removal Date: 07/14/21; Removal Time: 105607/14/21 08 by Radha Hogue, MACHINE TRIMMER 07/14/21 105 by Navin Ryan CRNA (RETIRED) [...] 07/14/21; 1541 07/14/21 0904 by Radha Hogue, MACHINE TRIMMER 07/14/21 1541 by Taylor Rivera RN Incision [...] Procedure Summary Date: 07/14/21 Room / Location: [address] MAIN OR Anesthesia Start: 840 Anesthesia [...] All Anesthesia Providers: Anesthesiologist: Jasmin Cunningham MD MACHINE TRIMMER: Navin Ryan CRNA; Radha Duran CRNA Vitals [...] chemo in [place] ??? Coronary artery disease ??? Coronary artery [...] 12.15) performed by Cayetano Engle MD at [facility] MAIN OR ??? PRO TOTAL HIP ARTHROPLASTY Left 10/10/2020 TOTAL HIP ARTHROPLASTY - POSTERIOR (WRVU 20.72) performed by Ismael Wu MD at [facility] MAIN OR Social History Tobacco Use [...] vascular procedure at [facility] in [place]: shaking Has tolerated [...] consented to blood products. Plan discussed with MACHINE TRIMMER. Anesthesia Screening documented in this encounter Plan of Treatment Upcoming Encounters Date Type Department Care Team (Late st Contact Info) Description 04/09/2024 9:30 AM EST Office Visit Hematology/Oncology at [address] [phone] Cl Hess MD [facility] [place] [place] [address] Yessi Renee APRN [address] [place] [address] [place] [address] 04/09/2024 10:00 AM EST Infusion Hematology Oncology at [address] [phone] 04/23/2024 9:30 AM EST Office Visit Hematology/Oncology at [address] [phone] Cl Hess MD [facility] [place] [place] [address] Yessi Renee APRN [address] [place] [address] DR HEMATOLOGY AND ONCOLOGY [place], [place] [address] 04/23/2024 10:00 AM EST Infusion Hematology Oncology at [address] [phone] 05/18/2024 4:30 PM EDT TH Visit (TeleHealth) [place] [address] Malachi Rothman MD [facility] [place] [address] 09/24/2024 9:00 AM EDT Office Visit Radiation Oncology at [address] [phone] Ping Moore PA [facility] DR HEMATOLOGY [place] [address] documented as of this encounter Visit Diagnoses Not on filedocumented in this encounter Administered Medications Inactive Administered Medications - up to 3 most recent administrations Medication Order MAR Action Action Date Dose Rate Site ceFAZolin (Ancef) 2 g in dextrose 5% 100 mL infusion 2 g, Intravenous, PUBLISHING DIRECTOR TO O.R., 1 dose, On Sat07/14/21 at [...] mg documented in this encounter Care Teams Ceramic Products Sales Engineer Relationship Specialty Start Date End Date Alo Carey DO [address] [place] [address] [place] [address] PCP - General Internal Medicine 08/31/20 07/03/23 documented as of this encounter
--- OUTSIDE RECORDS SUMMARY | 2024-03-26 10:40 | XMS_ITS | Encounter Summary ---
[place] [address] Care Team Providers Care Nub Card Tender Name Role Phone YungAlo santiago Primary Care Provider [phone] Encounter Details Date Type Department Care Team (Late st Contact Info) Description 06/19/2021 Telephone [place] [phone] Antonietta Mccray Social History Tobacco Use Types [...] Office Visit Hematology/Oncology at [address] [phone] Cl Hess MD [facility] [place] [address] [address] HEMATOLOGY AND ONCOLOGY [place], [place] [address] 04/09/2024 10:00 AM EST Infusion Hematology Oncology at [address] [phone] 04/23/2024 9:30 AM EST Office Visit Hematology/Oncology at [address] [phone] Cl Hess MD [facility] [place] [address] [address] HEMATOLOGY AND ONCOLOGY [place], [place] [address] 04/23/2024 10:00 AM EST Infusion Hematology Oncology at [address] [phone] 05/18/2024 4:30 PM EDT TH Visit (TeleHealth) [place] [address] Malachi Rothman MD [facility] [place] [address] 09/24/2024 9:00 AM EDT Office Visit Radiation Oncology at [address] [phone] Ping Moore PA [facility] DR HEMATOLOGY [place] [address] documented as of this encounter Visit Diagnoses Not on filedocumented in this encounter Care Teams Nub Card Tender Relationship Specialty Start Date End Date Alo Carey DO [address] [place] [address] [place] [address] PCP - General Internal Medicine 08/31/20 07/03/23 documented as of this encounter
--- OUTSIDE RECORDS SUMMARY | 2024-03-26 10:40 | XMS_ITS | Encounter Summary ---
[place] [address] Care Team Providers Care Astrobiologist Name Role Phone YungAlo santiago Primary Care Provider [phone] Encounter Details Date Type Department Care Team (Late st Contact Info) Description 07/12/2021 Telephone [place] [phone] Delia Templeton Social History Tobacco Use Types [...] patient. Patient needs COVID test done at [facility] in [facility]. PLEASE FAX ORDERS TO [phone] Ordering provider: Dr. Basim Barr Testing Facility: [facility] Date of Testin07/12/21 Time of Testing: TBD Symptoms: Pre OP documented in this encounter Plan of Treatment Upcoming Encounters Date Type Department Care Team (Late st Contact Info) Description 04/09/2024 9:30 AM EST Office Visit Hematology/Oncology at [address] [phone] Cl Hess MD [facility] [place] [address] [address] HEMATOLOGY AND ONCOLOGY [place], [place] [address] 04/09/2024 10:00 AM EST Infusion Hematology Oncology at [address] [phone] 04/23/2024 9:30 AM EST Office Visit Hematology/Oncology at [address] [phone] Cl Hess MD [facility] [place] [address] [address] [place] [address] 04/23/2024 10:00 AM EST Infusion Hematology Oncology at [address] [phone] 05/18/2024 4:30 PM EDT TH Visit (TeleHealth) [place] [address] Malachi Rothman MD [facility] [place] [address] 09/24/2024 9:00 AM EDT Office Visit Radiation Oncology at [address] [phone] Ping Moore PA [facility] [place] [address] documented as of this encounter Visit Diagnoses Not on filedocumented in this encounter Care Teams Astrobiologist Relationship Specialty Start Date End Date Alo Carey DO [address] [place] [address] [place] [phone] PCP - General Internal Medicine 08/31/20 07/03/23 documented as of this encounter
--- OUTSIDE RECORDS SUMMARY | 2024-03-26 10:40 | XMS_ITS | Encounter Summary ---
[place] [address] Care Team Providers Care Opticianry Teacher Name Role Phone Alo Carey Primary Care Provider [phone] Encounter Details Date Type Department Care Team (Late st Contact Info) Description 05/23/2021 1:00 PM EDT Tech [place] [phone] Karin Ortega Stenosis of carotid artery, unspecified [...] AM EST Office Visit Hematology/Oncology at [address] [phone] Cl Hess MD [facility] [place] [address] HEMATOLOGY AND ONCOLOGY [place], [place] [address] 04/09/2024 10:00 AM EST Infusion Hematology Oncology at [address] [phone] 04/23/2024 9:30 AM EST Office Visit Hematology/Oncology at [address] [phone] Cl Hess MD [facility] [place] [address] HEMATOLOGY AND ONCOLOGY [place], [place] [address] 04/23/2024 10:00 AM EST Infusion Hematology Oncology at [address] [phone] 05/18/2024 4:30 PM EDT TH Visit (TeleHealth) [place] [address] Malachi Rothman MD [facility] [place] [address] 09/24/2024 9:00 AM EDT Office Visit Radiation Oncology at [address] [phone] Ping Moore PA [facility] DR [place] [address] documented as of this encounter Procedures Procedure Name Priority Date/Time Associated Diagnosis Comments CAROTID DUPLEX, BILATERAL Routine 05/23/2021 12:58 PM EDT Stenosis of carotid artery, unspecified laterality documented in this encounter Results * Carotid Duplex, Bilateral (05/23/2021 12:58 PM EDT) VB Text Report Department: Vascular Surgery Lab Patient: [id number] (THA SADLER) CPT: 04785 Referring Physician: JASIEL LUNA, HR SYSTEMS ANALYST ?? Indications: History of Carotid stenosis, eye [...] 05/23/2021 12:5 8 PM EDT Jasiel Luna APRN VASCULAR ORDERABLE S VASCUBASE documented in this encounter Visit Diagnoses Diagnosis Stenosis of carotid artery, unspecified laterality documented in this encounter Care Teams Opticianry Teacher Relationship Specialty Start Date End Date Alo Carey DO [address] [place] [address] [place] [address] PCP - General Internal Medicine 08/31/20 07/03/23 documented as of this encounter
--- OUTSIDE RECORDS SUMMARY | 2024-03-26 10:40 | XMS_ITS | Encounter Summary ---
[place] [address] Care Team Providers Care Hardwood Floor Installation Helper Name Role Phone YungAlo santiago Primary Care Provider [phone] Reason for Visit * Reason Onset Date Comments Pre Procedure Call 06/22/2021 Encounter Details Date Type Department Care Team (Late st Contact Info) Description 06/22/2021 Telephone [place] [phone] Ismael Wu MD [facility] DR [place] [address] Pre Procedure Call Social History Tobacco Use [...] is calling? Wero Best call back number: [phone] Best time to call back between 8:00 [...] AM EST Office Visit Hematology/Oncology at [address] [phone] Cl Hess MD [facility] [place] [address] [address] [place] [address] 04/09/2024 10:00 AM EST Infusion Hematology Oncology at [address] [phone] 04/23/2024 9:30 AM EST Office Visit Hematology/Oncology at [address] [phone] Cl Hess MD [facility] [place] [address] Yessi Renee [address] [place] [address] 04/23/2024 10:00 AM EST Infusion Hematology Oncology at [address] [phone] 05/18/2024 4:30 PM EDT TH Visit (TeleHealth) [place] [address] Malachi Rothman MD [facility] [place] [address] 09/24/2024 9:00 AM EDT Office Visit Radiation Oncology at [address] [phone] Ping Moore PA [facility] DR HEMATOLOGY [place] [address] documented as of this encounter Visit Diagnoses Not on filedocumented in this encounter Care Teams Hardwood Floor Installation Helper Relationship Specialty Start Date End Date Alo Carey DO [address] [place] [address] [place] [address] PCP - General Internal Medicine 08/31/20 07/03/23 documented as of this encounter
--- OUTSIDE RECORDS SUMMARY | 2024-03-26 10:40 | XMS_ITS | Encounter Summary ---
[place] [address] Care Team Providers Care Certified Dietary Manager Name Role Phone YungAlo santiago Primary Care Provider [phone] Encounter Details Date Type Department Care Team (Late st Contact Info) Description 07/11/2021 Telephone [place] [phone] Marva Moura, RN Social History Tobacco Use [...] the original note were not included. This speech writer accessed voice message from patient at 3:59 who states he's at the covid tent for his pre-op test and there is no one there. He drove down from [place], [place]. Chart indicates arrangements for testing was approved. This speech writer called the Covid test line and was told the tent closes at 2:30, and that email is the best way to reach Rose Mary Veras. email message sent to Rose Mary Veras, and Dr. Barr. This speech writer phoned patient who states he is already driving back home. Patient states this has happened before and he's been able to get the test done at [facility] in [place]. email message sent to Dr. Barr and Rose Mary Veras. documented in this encounter Plan of Treatment Upcoming Encounters Date Type Department Care Team (Late st Contact Info) Description 04/09/2024 9:30 AM EST Office Visit Hematology/Oncology at [address] [phone] Cl Hess MD [facility] [place] [address] [address] HEMATOLOGY [place] [address] 04/09/2024 10:00 AM EST Infusion Hematology Oncology at [address] [phone] 04/23/2024 9:30 AM EST Office Visit Hematology/Oncology at [address] [phone] Cl Hess MD [facility] [place] [address] [address] HEMATOLOGY [place] [address] 04/23/2024 10:00 AM EST Infusion Hematology Oncology at [address] [address] 05/18/2024 4:30 PM EDT TH Visit (TeleHealth) [place] [address] Malachi Rothman MD [facility] DR RADIATION [place] [address] 09/24/2024 9:00 AM EDT Office Visit Radiation Oncology at [address] [address] Ping Moore PA [facility] DR HEMATOLOGY [place] [address] documented as of this encounter Visit Diagnoses Not on filedocumented in this encounter Care Teams Certified Dietary Manager Relationship Specialty Start Date End Date Alo Carey DO [address] [place] [address] [place] [address] PCP - General Internal Medicine 08/31/20 07/03/23 documented as of this encounter
--- OUTSIDE RECORDS SUMMARY | 2024-03-26 10:40 | XMS_ITS | Encounter Summary ---
[place] [address] Care Team Providers Care Case Management Social Worker Name Role Phone Alo Carey Primary Care Provider [phone] Encounter Details Date Type Department Care Team (Late st Contact Info) Description 07/12/2021 Orders Only [place] [phone] Rocío Manuel, RN *Screening for COVID-19 virus [...] AM EST Office Visit Hematology/Oncology at [address] [phone] Cl Hess MD [facility] [address] Yessi Renee, [address] HEMATOLOGY [place] [address] 04/09/2024 10:00 AM EST Infusion Hematology Oncology at [address] [phone] 04/23/2024 9:30 AM EST Office Visit Hematology/Oncology at [address] [phone] Cl Hess MD [facility] [address] [address] HEMATOLOGY [place] [address] 04/23/2024 10:00 AM EST Infusion Hematology Oncology at [address] [phone] 05/18/2024 4:30 PM EDT TH Visit (TeleHealth) [place] [address] Malachi Rothman MD [facility] [place] [address] 09/24/2024 9:00 AM EDT Office Visit Radiation Oncology at [address] [phone] Ping Moore PA [facility] DR [place] [address] documented as of this encounter Visit Diagnoses Diagnosis Encounter for screening laboratory testing for COVID-19 virus documented in this encounter Care Teams Case Management Social Worker Relationship Specialty Start Date End Date Alo Carey DO [address] [place] [address] [place] [phone] PCP - General Internal Medicine 08/31/20 07/03/23 documented as of this encounter
--- OUTSIDE RECORDS SUMMARY | 2024-03-26 10:40 | XMS_ITS | Encounter Summary ---
[place] [address] Care Team Providers Care Retort Engineer Name Role Phone YungAlo santiago Primary Care Provider [phone] Encounter Details Date Type Department Care Team (Late st Contact Info) Description 07/04/2021 Telephone Radiation Oncology at [address] [phone] Juli Tripathi RN Social [...] PM EDT Radiation Oncology Nurse Telephone Note [place], [place] Telephone call to patient. PCP's office [...] AM EST Office Visit Hematology/Oncology at [address] [phone] Cl Hess MD [facility] [place] [address] [address] [place] [address] 04/09/2024 10:00 AM EST Infusion Hematology Oncology at [address] [phone] 04/23/2024 9:30 AM EST Office Visit Hematology/Oncology at [address] [phone] Cl Hess MD [facility] [place] [address] [address] [place] [address] 04/23/2024 10:00 AM EST Infusion Hematology Oncology at [address] [phone] 05/18/2024 4:30 PM EDT TH Visit (TeleHealth) [place] [address] Malachi Rothman MD [facility] [place] [address] 09/24/2024 9:00 AM EDT Office Visit Radiation Oncology at [address] [phone] Ping Moore PA [facility] HEMATOLOGY [place] [address] documented as of this encounter Visit Diagnoses Not on filedocumented in this encounter Care Teams Retort Engineer Relationship Specialty Start Date End Date Alo Carey DO [address] [place] [address] [place] [address] PCP - General Internal Medicine 08/31/20 07/03/23 documented as of this encounter
--- OUTSIDE RECORDS SUMMARY | 2024-03-26 10:40 | XMS_ITS | Encounter Summary ---
[place] [address] Care Team Providers Care Ex Assistant/Program Director Name Role Phone YungAlo santiago Lon RUTHERFORD Primary Care Provider [phone] Reason for Visit * Auth/Cert Specialty Diagnoses [...] Expiration Date Visits Re quested Visits Authorized [id number] 1 1 Encounter Details Date Type Department Care Team (Latest Contact Info) Description 07/14/2021 8:30 AM EDT - 07/14/2021 11:59 PM EDT Hospital En[place] [phone] Discharge Disposition: Home Social History Tobacco Use [...] AM EST Office Visit Hematology/Oncology at [address] [phone] Cl Hess MD [facility] [place] [address] Yessi Renee, [address] HEMATOLOGY AND ONCOLOGY [place], [place] [id number] 04/09/2024 10:00 AM EST Infusion Hematology Oncology at [address] [phone] 04/23/2024 9:30 AM EST Office Visit Hematology/Oncology at [address] [phone] Cl Hess MD [facility] [place] [address] [address] HEMATOLOGY AND ONCOLOGY [place], [place] [id number] 04/23/2024 10:00 AM EST Infusion Hematology Oncology at [address] [phone] 05/18/2024 4:30 PM EDT TH Visit (TeleHealth) [place] [address] Malachi Rothman MD [facility] [place] [address] 09/24/2024 9:00 AM EDT Office Visit Radiation Oncology at [address] [phone] Ping Moore PA [facility] [place] [address] documented as of this encounter Visit Diagnoses Not on filedocumented in this encounter Care Teams Ex Assistant/Program Director Relationship Specialty Start Date End Date Alo Carey DO [address] [place] [address] [place] [address] PCP - General Internal Medicine 08/31/20 07/03/23 documented as of this encounter
--- OUTSIDE RECORDS SUMMARY | 2024-03-26 10:40 | XMS_ITS | Encounter Summary ---
[place] [address] Care Team Providers Care Route Delivery Clerk Name Role Phone YungAlo santiago Primary Care Provider [phone] Encounter Details Date Type Department Care Team (Late st Contact Info) Description 07/06/2021 [place]phone [place] [phone] Floridalma Simmons Social History Tobacco Use Types [...] ASK: TRAVEL ???Have you travelled outside of [place] ([place], [place], [place], [place], [place], [place]) in the past 14 days??? 2. ASK: [...] Transfer patient to the Covid-19 Hotline Number ([phone]) for further instructions. If 'No' to all of the questions above Is this the first test for Covid 19 If no, please list date of previous test, result, and type of test (Molecular, Antigen, Antibody orunknown): Resides in Nursing/halfway or other residential setting No Employee or [...] AM EST Office Visit Hematology/Oncology at [address] [phone] Cl Hess MD [facility] [address] Yessi Renee APRN [address] [place] [address] DR HEMATOLOGY AND ONCOLOGY [place], [place] [id number] 04/09/2024 10:00 AM EST Infusion Hematology Oncology at [address] [phone] 04/23/2024 9:30 AM EST Office Visit Hematology/Oncology at [address] [phone] Cl Hess MD [facility] [place] [place] [address] Yessi Renee APRN [address] [place] [address] DR HEMATOLOGY [place] [address] 04/23/2024 10:00 AM EST Infusion Hematology Oncology at [address] [phone] 05/18/2024 4:30 PM EDT TH Visit (TeleHealth) [place] [address] Malachi Rothman MD [facility] [place] [address] 09/24/2024 9:00 AM EDT Office Visit Radiation Oncology at [address] [phone] Ping Moore PA [facility] DR HEMATOLOGY [place] [address] documented as of this encounter Visit Diagnoses Not on filedocumented in this encounter Care Teams Route Delivery Clerk Relationship Specialty Start Date End Date Alo Carey DO [address] [place] [address] [place] [phone] PCP - General Internal Medicine 08/31/20 07/03/23 documented as of this encounter
--- OUTSIDE RECORDS SUMMARY | 2024-03-26 10:40 | XMS_ITS | Encounter Summary ---
Author Organization [facility] [place] [address] Care Team Providers Care Scientific Glass Blower Name Role Phone Alo Carey DO Primary Care Provider [phone] Encounter Details Date Type Department Care Team (Late st Contact Info) Description 07/14/2021 10:45 AM EDT Ancillary Procedure Radiology Library at [facility] [place] [phone] Social History Tobacco Use Types Packs/Day Years [...] AM EST Office Visit Hematology/Oncology at [address] [phone] Cl Hess MD [facility] [place] [address] [address] HEMATOLOGY AND ONCOLOGY [place], [place] [id number] 04/09/2024 10:00 AM EST Infusion Hematology Oncology at [address] [phone] 04/23/2024 9:30 AM EST Office Visit Hematology/Oncology at [address] [phone] Cl Hess MD [facility] [place] [address] [address] HEMATOLOGY AND ONCOLOGY [place], [place] [id number] 04/23/2024 10:00 AM EST Infusion Hematology Oncology at [address] [phone] 05/18/2024 4:30 PM EDT TH Visit (TeleHealth) [place] [address] Malachi Rothman MD [facility] [place] [address] 09/24/2024 9:00 AM EDT Office Visit Radiation Oncology at [address] [phone] Ping Moore PA [facility] [place] [address] documented as of this encounter Procedures Procedure Name Priority Date/Time Associated Diagnosis Comments IR OR VASC ANGIOGRAM IMAGE STORAGE ONLY Routine 07/14/2021 10:41 AM EDT documented in this encounter Results * IR OR VASC Aniogram Image Storage Only (07/14/2021 10:41 AM EDT) Narrative EUFEMIA - 07/14/2021 10:41 AM EDT This exam is auto-finalizing. It's purpose is for storage only. Basim Barr MD IMG FILM LIBRARY ORD ERABLES Performing Organization Address City/State/[facility] Co de Phone Number [place], [place] documented in this encounter Visit Diagnoses Not on filedocumented in this encounter Care Teams Scientific Glass Blower Relationship Specialty Start Date End Date Alo Carey DO [address] [place] [address] [place] [phone] PCP - General Internal Medicine 08/31/20 07/03/23 documented as of this encounter
--- OUTSIDE RECORDS SUMMARY | 2024-03-26 10:40 | XMS_ITS | Encounter Summary ---
[place] [address] Care Team Providers Care Information Analyst Name Role Phone YungAlo santiago Lon RUTHERFORD Primary Care Provider [phone] Reason for Visit * Auth/Cert Specialty Diagnoses [...] Expiration Date Visits Re quested Visits Authorized [id number] 1 1 Encounter Details Date Type Department Care Team (Latest Contact Info) Description 07/11/2021 1:00 PM EDT Public Health [place] [address] Encounter for preprocedure screening laboratory testing for [...] Office Visit Hematology/Oncology at [address] [phone] Cl Hess MD [facility] [place] [address] [address] HEMATOLOGY AND ONCOLOGY [place], [place] [address] 04/09/2024 10:00 AM EST Infusion Hematology Oncology at [address] [phone] 04/23/2024 9:30 AM EST Office Visit Hematology/Oncology at [address] [phone] Cl Hess MD [facility] [place] [address] [address] HEMATOLOGY AND ONCOLOGY [place], [place] [address] 04/23/2024 10:00 AM EST Infusion Hematology Oncology at [address] [phone] 05/18/2024 4:30 PM EDT TH Visit (TeleHealth) [place] [address] Malachi Rothman MD [facility] [place] [address] 09/24/2024 9:00 AM EDT Office Visit Radiation Oncology at [address] [phone] Ping Moore PA [facility] DR HEMATOLOGY [place] [address] documented as of this encounter Visit Diagnoses Diagnosis Encounter for preprocedure screening laboratory testing for COVID-19 documented in this encounter Care Teams Information Analyst Relationship Specialty Start Date End Date Alo Carey DO [address] [place] [address] [place] [phone] PCP - General Internal Medicine 08/31/20 07/03/23 documented as of this encounter
--- OUTSIDE RECORDS SUMMARY | 2024-03-26 10:40 | XMS_ITS | Encounter Summary ---
[place] [address] Care Team Providers Care Campus Rep Name Role Phone Alo Carey DO Primary Care Provider [phone] Encounter Details Date Type Department Care Team (Late st Contact Info) Description 07/12/2021 Telephone [place] [phone] Rocío Manuel RN Social History Tobacco Use [...] covid test set up for today at [facility]. States he had app[place] [facility] [place] pre[place] ([place] scheduled for 07/14/21 at [facility]) but his appt with md went over time and he missed it. [place] is back in [place] now and wants test there so he can have surgery on Saturday. I will forward this message to preop schedulers. Please call pt reid at [phone]. documented in this encounter Plan of Treatment Upcoming Encounters Date Type Department Care Team (Late st Contact Info) Description 04/09/2024 9:30 AM EST Office Visit Hematology/Oncology at [address] [phone] Cl Hess MD [facility] [place] [address] Yessi Renee [address] [place] [address] 04/09/2024 10:00 AM EST Infusion Hematology Oncology at [address] [phone] 04/23/2024 9:30 AM EST Office Visit Hematology/Oncology at [address] [phone] Cl Hess MD [facility] [place] [address] Yessi Renee [address] [place] [address] 04/23/2024 10:00 AM EST Infusion Hematology Oncology at [address] [phone] 05/18/2024 4:30 PM EDT TH Visit (TeleHealth) [place] [address] Malachi Rothman MD [facility] [place] [address] 09/24/2024 9:00 AM EDT Office Visit Radiation Oncology at [address] [phone] Ping Moore PA [facility] [place] [address] documented as of this encounter Visit Diagnoses Not on filedocumented in this encounter Care Teams Campus Rep Relationship Specialty Start Date End Date Alo Carey DO [address] [place] [address] [place] [address] PCP - General Internal Medicine 08/31/20 07/03/23 documented as of this encounter
--- OUTSIDE RECORDS SUMMARY | 2024-03-26 10:40 | XMS_ITS | Encounter Summary ---
[place] [address] Care Team Providers Care Airplane Technician Name Role Phone Cherry Alo Lon RUTHERFORD Primary Care Provider [phone] Reason for Referral * Diagnostic Test (Routine) - Closed Specialty Diagnoses / Procedures Referred By Marques livingston Referred To Contact Radiology Diagnoses Malignant neoplasm of prostate Procedures MRI Pelvis wo (Prostate) Bigg Peters MD [address] [place] [address] [place] [address] [place] [address] Referral ID Status Reason Start Date Expiration Date V isits Requested Visits Authorized [id number] Closed Specialty Service Requested 04/11/2021 10/09/2022 1 [...] Expiration Date Visits Re quested Visits Authorized [id number] 1 1 Encounter Details Date Type Department Care Team (Latest Contact Info) Description 07/11/2021 12:43 PM EDT - 07/11/2021 11:59 PM EDT Hospital Encounter [place] [address] Bigg Peters MD [address] [place] [address] DR RADIATION ONCOLOGY [place], [place] [id number] Malignant neoplasm of prostate Discharge Disposition: Home [...] AM EST Office Visit Hematology/Oncology at [address] [phone] Cl Hess MD [facility] [place] [address] Yess[address] Renee [address] [place] [address] 04/09/2024 10:00 AM EST Infusion Hematology Oncology at [address] [phone] 04/23/2024 9:30 AM EST Office Visit Hematology/Oncology at [address] [phone] Cl Hess MD [facility] [place] [address] [address] [place] [address] 04/23/2024 10:00 AM EST Infusion Hematology Oncology at [address] [phone] 05/18/2024 4:30 PM EDT TH Visit (TeleHealth) Radiation [place]cology [place] [address] Malachi Rothman MD [facility] [place] [address] 09/24/2024 9:00 AM EDT Office Visit Radiation Oncology at [address] [phone] Ping Moore PA [facility] DR HEMATOLOGY [place] [address] documented as of this encounter Procedures Procedure [...] have questions please contact the health care management coordinator that requested your imaging first. ? Electronically signed by: Madan Angel MD, [facility] ([phone]), at 07/12/2021 5:26 PM Narrative 07/12/2021 5:26 [...] who have questions please contactthe health care management coordinator that requested your imaging first. Bigg Peters MD IMG MRI ORDERABLES documented in this encounter Visit Diagnoses Diagnosis Malignant neoplasm of prostate documented in this encounter Care Teams Airplane Technician Relationship Specialty Start Date End Date Alo Carey DO [address] [place] [address] [place] [address] PCP - General Internal Medicine 08/31/20 07/03/23 documented as of this encounter
--- OUTSIDE RECORDS SUMMARY | 2024-03-26 10:40 | XMS_ITS | Encounter Summary ---
[place] [address] Care Team Providers Care Skidder Name Role Phone Alo Carey DO Primary Care Provider [phone] Reason for Visit * Reason Comments Injections Lupron * Treatment/Therapy Plan Authorization (Routine) - Pending Review Specialty Diagnoses / Procedures Referred By Marques livingston Referred To Contact Diagnoses Malignant neoplasm of prostate Bigg Peters MD [address] [place] [address] [place] [address] Referral ID Status Reason Start Date Expiration Date V isits Requested Visits Authorized [id number] Pending Review 04/26/2021 04/26/2022 99 99 Encounter Details Date Type Department Care Team (Late st Contact Info) Description 06/28/2021 3:30 PM EDT Infusion Hematology Oncology at [address] [phone] Malignant neoplasm of prostate Social [...] AM EST Office Visit Hematology/Oncology at [address] [phone] Cl Hess MD [facility] [place] [address] [address] [place] [address] 04/09/2024 10:00 AM EST Infusion Hematology Oncology at [address] [phone] 04/23/2024 9:30 AM EST Office Visit Hematology/Oncology at [address] [phone] Cl Hess MD [facility] [place] [address] [address] [place] [address] 04/23/2024 10:00 AM EST Infusion Hematology Oncology at [address] [phone] 05/18/2024 4:30 PM EDT TH Visit (TeleHealth) [place] [address] Malachi Rothman MD [facility] [place] [address] 09/24/2024 9:00 AM EDT Office Visit Radiation Oncology at [address] [phone] Ping Moore PA [facility] [place] [address] documented as of this encounter Visit Diagnoses [...] Gluteal documented in this encounter Care Teams Skidder Relationship Specialty Start Date End Date Alo Carey DO [address] [place] [address] [place] [phone] PCP - General Internal Medicine 08/31/20 07/03/23 documented as of this encounter
--- OUTSIDE RECORDS SUMMARY | 2024-03-26 10:40 | XMS_ITS | Encounter Summary ---
[place] [address] Care Team Providers Care Safety And Skill Based Pay Manager Name Role Phone YungAlo santiago Lon RUTHERFORD Primary Care Provider [phone] Reason for Visit * Auth/Cert Specialty Diagnoses [...] Expiration Date Visits Re quested Visits Authorized [id number] 1 1 Encounter Details Date Type Department Care Team (Late st Contact Info) Description 07/14/2021 8:30 AM EDT - 07/14/2021 12:00 PM EDT Surgery [place] [address] Basim Barr MD [facility] [place] [address] @TRANSCATH INTRAVASCULAR STENT,CAROTID,PERC,W\EM [place] PROT. (WRVU 28.70) Social History Tobacco Use Types Packs/Day Years [...] R TCAR performed with predilation to 4.5mm. [id number] Enroute stent placed and post- dilated to [...] PM STJ RAD/ONC, TREATMENT Radiation Oncology at [facility] Arrive at: [facility] door at end of [place] [address] 07/27/2021 2:45 PM STJ RAD/ONC, TREATMENT Radiation Oncology at [facility] Arrive at: [facility] door at end of [place] [address] 07/28/2021 12:15 PM STJ RAD/ONC, TREATMENT Radiation Oncology at [facility] Arrive at: [facility] door at end of [place] [phone] 08/01/2021 12:45 PM STJ RAD/ONC, TREATMENT Radiation Oncology at [facility] Arrive at: [facility] door at end of [address] [phone] 08/02/2021 12:45 PM STJ RAD/ONC, TREATMENT Radiation Oncology at [facility] Arrive at: [facility] door at end of [place] [address] 08/03/2021 12:45 PM STJ RAD/ONC, TREATMENT Radiation Oncology at [facility] Arrive at: [facility] door at end of hallway [phone] 08/04/2021 1:00 PM STJ RAD/ONC, TREATMENT Radiation Oncology at [facility] Arrive at: [facility] door at end of hallway [phone] 08/07/2021 12:45 PM STJ RAD/ONC, TREATMENT Radiation Oncology at [facility] Arrive at: [facility] door at end of hallway [phone] 08/08/2021 12:45 PM STJ RAD/ONC, TREATMENT Radiation Oncology at [facility] Arrive at: [facility] door at end of hallway [phone] 08/09/2021 12:45 PM STJ RAD/ONC, TREATMENT Radiation Oncology at [facility] Arrive at: [facility] door at end of hallway [phone] 08/10/2021 12:45 PM STJ RAD/ONC, TREATMENT Radiation Oncology at [facility] Arrive at: [facility] door at end of hallway [phone] 08/11/2021 1:00 PM STJ RAD/ONC, TREATMENT Radiation Oncology at [facility] Arrive at: [facility] door at end of hallway [phone] 08/14/2021 12:45 PM STJ RAD/ONC, TREATMENT Radiation Oncology at [facility] Arrive at: [facility] door at end of hallway [phone] 08/15/2021 12:45 PM STJ RAD/ONC, TREATMENT Radiation Oncology at [facility] Arrive at: [facility] door at end of hallway [phone] 08/16/2021 12:45 PM STJ RAD/ONC, TREATMENT Radiation Oncology at [facility] Arrive at: [facility] door at end of hallway [phone] 08/17/2021 12:45 PM STJ RAD/ONC, TREATMENT Radiation Oncology at [facility] Arrive at: [facility] door at end of hallway [phone] 08/18/2021 12:45 PM STJ RAD/ONC, TREATMENT Radiation Oncology at [facility] Arrive at: [facility] door at end of hallway [phone] 08/21/2021 12:45 PM STJ RAD/ONC, TREATMENT Radiation Oncology at [facility] Arrive at: [facility] door at end of hallway [phone] 08/22/2021 12:45 PM STJ RAD/ONC, TREATMENT Radiation Oncology at [facility] Arrive at: [facility] door at end of hallway [phone] 08/23/2021 12:45 PM STJ RAD/ONC, TREATMENT Radiation Oncology at [facility] door at end of hallway [phone] 08/24/2021 12:45 PM STJ RAD/ONC, TREATMENT Radiation Oncology at [facility] Arrive at: [facility] door at end of hallway [phone] 08/25/2021 12:45 PM STJ RAD/ONC, TREATMENT Radiation Oncology at [facility]: [facility] door at end of hallway [phone] 08/28/2021 12:45 PM STJ RAD/ONC, TREATMENT Radiation Oncology at [facility]: [facility] door at end of hallway [phone] 08/29/2021 12:45 PM STJ RAD/ONC, TREATMENT Radiation Oncology at [facility] Ar[facility] at: [facility] door at end of hallway [phone] 08/30/2021 12:45 PM STJ RAD/ONC, TREATMENT Radiation Oncology at [facility] Ar[facility] at: [facility] door at end of hallway [phone] 08/31/2021 12:45 PM STJ RAD/ONC, TREATMENT Radiation Oncology at [facility] Ar[facility]: [facility] door at end of hallway [phone] 09/01/2021 12:45 PM STJ RAD/ONC, TREATMENT Radiation Oncology at [facility]: [facility] door at end of hallway [phone] 09/05/2021 12:45 PM STJ RAD/ONC, TREATMENT Radiation Oncology at [facility] Arrive at: [facility] door at end of hallway [phone] Future Orders Complete By Expires Carotid Duplex, Bilateral [VAS1 Custom] 08/16/2021 07/16/2022 Process Instructions: There is no in-house vascular metallurgy laboratory technician available on weeknights (5pm-8am), weekends, or holidays. IF THIS IS A REQUEST FOR AN EMERGENT STUDY DURING THOSE HOURS, please have the senior provider responsible for the patient page the Vascular Surgery Fellow/Senior Resident male impersonator to discuss options. Scheduling Instructions: Questions: Indication for study/signs & symptoms: s/p R TCAR Question to be answered: patency Preferred location?: [facility] Carotid Duplex, Bilateral [VAS1 Custom] 01/16/2022 07/16/2022 Process Instructions: There is no in-house vascular metallurgy laboratory technician available on weeknights (5pm-8am), weekends, or holidays. IF THIS IS A REQUEST FOR AN EMERGENT STUDY DURING THOSE HOURS, please have the senior provider responsible for the patient page the Vascular Surgery Fellow/Senior Resident male impersonator to discuss options. Scheduling Instructions: Questions: Indication for study/signs & symptoms: s/p R TCAR Question to be answered: patency Preferred location?: [facility] XR Neck Soft Tissue (Generic) [12548 Custom] 01/16/2022 07/16/2022 Process Instructions: Scheduling Instructions: Questions: Where will study be performed?: [facility] Radiology Portable exam?: Reason for exam and clinical history: s/p R TCAR, assess for stent fracture Clinical information / fernando questions for radiologist: Stat read required?: Date of injury if applicable: Requested Time: Anticoagulation & Antiplatelet: Anticoagulation: not indicated Antiplatelet: Agent: ASA, Plavix Indication:ASCVD Intended Duration: termite technician For questions regarding these medications, please contact: [...] at [facility] Vascular in [place]: shaking Has tolerated MRI [...] or questions please call our office at [phone] For issues on weeknights after 5pm and weekends please call [phone] and ask for the Vascular Fellow male impersonator. documented in this encounter Discharge Instructions * [...] or questions please call our office at [phone] For issues on weeknights after 5pm and weekends please call [phone] and ask for the Vascular Fellow male impersonator. documented in this encounter Medications at Time [...] PO hydration Anticoagulation: N/A Antiplatelet: ASA, plavix, assisted Lexi Walker MD 07/16/2021 Pager: [phone] * Honey Farias RN - 07/16/2021 5:39 [...] to void Anticoagulation: N/A Antiplatelet: ASA, plavix, assisted Lexi Walker MD 07/15/2021 Pager: [phone] * Honey Farias RN - 07/15/2021 3:10 [...] room air, heart rate regular. * Deloris Curz RN - 07/15/2021 3:03 AM EDT 2028~ Labetolol 20mg given IV for BP188/95 AOx4, endorses a 3/10 headache, NO facial asymmetry, R pupil is reactive to light, CIARAN left eye (prosthetic eye), 4/5 strength x4 extremities. R CEA incision is PORTER HEAD , dermabonded. R groin incision dressing remains clean, dry and intact. +doppler signals on bilateral pedal pulses. 2037~ Patient with large amt of emesis. 2 assist with partial bath, dressing and linen change. PRN ZOfran 4mg given IV. 4W [employer] Weapons Sergeant at bedside. MD Smallwood was made aware and came to bedside. Patient to be transferred to higher level of care for BP control with Nicardipine gtt. 2110~ Hydralazine 20mg given for BP 165/75 2132~ BP 133/66, HR91 2305~ Nicardipine gtt started at 5mg/hr for BP 158/81 by 4W RN [employer] Weapons Sergeant, to titrate accordingly. MD Smallwood was paged and verified if the witt should still be removed at 12midnight considering that patient will be moved to PCU, awaiting call back for close monitoring. 253~ report given to RESPIRATORY MANAGERAYE Méndez. Patient was transferred to PCU 428 [...] pain with oxycodone and tylenol for headache. [id number]: Patient ok 'd to go to floor, [...] ??? Colon adenocarcinoma 2009 recieved chemo in [place] ??? Coronary artery disease ??? Coronary artery [...] by Cayetano Engle MD at [facility] MAIN OR ??? PRO TOTAL HIP ARTHROPLASTY Left 10/10/2020 TOTAL HIP ARTHROPLASTY - POSTERIOR (WRVU 20.72) performed by Ismael Wu MD at [facility] MAIN OR Functional Status/Social Hx: Lives [...] to proceed. Charleen Madera Vascular Surgery Pager #[phone] documented in this encounter Procedure Notes * Jared Melvin MD - 07/14/2021 10:56 AM EDT NEURODIAGNOSTIC LABORATORY [facility] INTRAOPERATIVE MONITORING REPORT Name: Tha Sadler : 1950 Date of Surgery: 07/14/2021 Surgeon(s): Basim Barr MD; Wojciech Madera MD Surgical Procedure: right trans-carotid arterial revascularization (TCAR) Monitoring Procedure: Intraoperative scalp EEG monitoring and bilateral median nerve somatosensory evoked potentials (SSEPs). CPT Codes: 14803 (EEG), 22757 (upper SSEP bilateral), 38890 (IOM, 5 units), 35285 (IOM, 1 unit). Intraoperative neurophysiologic monitoring was [...] COVID test: Lab Results Component Value Date [id number] Not Detected 07/14/2021 Present on Admission: ??? [...] care provider on file: Alo Carey DO [phone] Pharmacy: [id number] - [place], [place] - [address] [facility] [address] [facility] [address] [facility] [phone] Advance Care Planning: Attempt Cardiopulmonary Resuscitation - Inpatient <no information> -Advanced Directive: No, declines Current Functional Ability: Assistive Equipment and Assistive Person Functional Status Prior to Admission: Assistive Equipment Home Environment: Others in the home: sibling(s). Current Living Arrangements: home/apartment/condo. Accessibility Concerns:no concerns. Current DME: walker - rolling [address] [facility] [address] Social & Family Supports: All names listed below confirmed with patient as current and correct Extended Emergency Contact Information Primary Emergency Contact: AMY ROPER Address: [address] [place] [address] Mobile Relation: Significant Other Secondary Emergency Contact: [...] via car when medically ready. Registered Nurse Picking Supervisor / Coal Tram Driver will continue to follow patient???s progress and remain available if situation changes for coordination of care, psychosocial support and/or discharge planning. Office of Care Management Gissel SANTOS RN Phone: [phone] Pager: [phone] * Plan of Care - Charlotte Sun [...] Madera MD - 07/14/2021 11:16 AM EDT [facility] Operative Note Patient Name: Tha Sadler : [id number] MR#: [id number] Case Date: 07/14/2021 Surgeon: Surgeon(s) and Role: [...] imaging. R TCAR performed with predilation to 4.5mm.[id number] Enroute stent placed and post-dilated to 5mm. [...] was exchanged for the Enroute Neuroprotection System (ACQUISITION MARKETING MANAGER) arterial sheath. After confirming appropriate position, this [...] a 4.5x30mm angioplasty balloon. The Enroute stent ([id number]) was then deployed. Post-dilation was performed with [...] Implant Name Type Inv. Item Serial No. Tape Recorder Mechanic Lot No. LRB No. Used Action SYSTEM STENT ENROUTE [id number] RX NIT ([id number]) (AUTOREQ) - [id number] IMPLANTS SYSTEM STENT ENROUTE [id number] RX NIT ([id number]) (AutoReq) [facility] [id number] Right 1 Implanted Associated attestation - Basim [...] AM EST Office Visit Hematology/Oncology at [address] [place] [address] [phone] Cl Hess MD [facility] [place] [address] HEMATOLOGY AND ONCOLOGY [place], [place] [id number] 04/09/2024 10:00 AM EST Infusion Hematology Oncology at [address] [place] [address] [phone] 04/23/2024 9:30 AM EST Office Visit Hematology/Oncology at [address] [place] [address] [phone] Cl Hess MD [facility] [place] [address] HEMATOLOGY AND ONCOLOGY [place], [place] [address] 04/23/2024 10:00 AM EST Infusion Hematology Oncology at [address] [place] [address] [phone] 05/18/2024 4:30 PM EDT TH Visit (TeleHealth) [place] [address] Malachi Rothman MD [facility] [place] [address] 09/24/2024 9:00 AM EDT Office Visit Radiation Oncology at [address] [phone] Ping Moore PA [facility] DR HEMATOLOGY [place] [address] documented as of this encounter Procedures Procedure [...] 07/14/2021 10:41 AM EDT RAPID COVID-19 PCR ([facility]) Routine 07/14/2021 10:00 AM EDT Exploration Not Followed By Surg Neck Artery ([id number]) 07/14/2021 8:42 AM EDT Stenosis of carotid artery, unspecified laterality Pre-op testing Place Transcatheter Stent, Cca W Embolic Ect (24452) 07/14/2021 8:42 AM EDT Stenosis of carotid [...] Text Report Department: Vascular Surgery Lab Patient: [id number] (THA SADLER) CPT: 63087 Referring Physician: AL HUERTA ?? Phone: Indications: [...] Glucose, POC 151 65 - 199 mg/dL [facility] Comment: Supplemental ranges: <140 mg/dL before meals <180 mg/dL all other times of the day Blood 07/17/2021 8:07 AM EDT 07/17/2021 8:07 AM EDT Basim Barr MD POINT OF CARE TEST O RDERAWILLY Performing Organization Address [facility]/ZIP Co de Phone Number [facility] [place] [place] [address] * (ABNORMAL) POCT Glucose (07/16/2021 9:35 PM EDT) Glucose, POC 224(H) 65 - 199 mg/dL [facility] Comment: Supplemental ranges: <140 mg/dL before meals <180 mg/dL all other times of the day Blood 07/16/2021 9:35 PM EDT 07/16/2021 9:35 PM EDT Basim Barr MD POINT OF CARE TEST O NATHANERAWILLY Performing Organization Address [facility] Co de Phone Number [facility] [place] [place] [address] * POCT Glucose (07/16/2021 3:51 PM EDT) Glucose, POC 164 65 - 199 mg/dL [facility] Comment: Supplemental ranges: <140 mg/dL before meals <180 mg/dL all other times of the day Blood 07/16/2021 3:51 PM EDT 07/16/2021 3:51 PM EDT Basim Barr MD POINT OF CARE TEST O RDERAWILLY Performing Organization Address [facility] Co de Phone Number [facility] [place] [place] [address] * POCT Glucose (07/16/2021 12:00 PM EDT) Glucose, POC 147 65 - 199 mg/dL [facility] Comment: Supplemental ranges: <140 mg/dL before meals <180 mg/dL all other times of the day Blood 07/16/2021 12:0 0 PM EDT 07/16/2021 12:00 PM EDT Basim Barr MD POINT OF CARE TEST O RDERABLES Performing Organization Address [facility]/ZIP Co de Phone Number [facility] [place] [address] * POCT Glucose (07/16/2021 7:51 AM EDT) Glucose, POC 150 65 - 199 mg/dL [facility] Comment: Supplemental ranges: <140 mg/dL before meals <180 mg/dL all other times of the day Blood 07/16/2021 7:51 AM EDT 07/16/2021 7:51 AM EDT Basim Barr MD POINT OF CARE TEST O RDERABLES Performing Organization Address [facility] Co de Phone Number [facility] [place] [address] * POCT Glucose (07/15/2021 8:59 PM EDT) Glucose, POC 197 65 - 199 mg/dL [facility] Comment: Supplemental ranges: <140 mg/dL before meals <180 mg/dL all other times of the day Blood 07/15/2021 8:59 PM EDT 07/15/2021 8:59 PM EDT Basim Barr MD POINT OF CARE TEST O RDERAWILLY Performing Organization Address [facility] Co de Phone Number [facility] [place] [address] * POCT Glucose (07/15/2021 3:56 PM EDT) Glucose, POC 197 65 - 199 mg/dL [facility] Comment: Supplemental ranges: <140 mg/dL before meals <180 mg/dL all other times of the day Blood 07/15/2021 3:56 PM EDT 07/15/2021 3:56 PM EDT Basim Barr MD POINT OF CARE TEST O RDERABLES [facility] [place] [address] * (ABNORMAL) POCT Glucose (07/15/2021 11:46 AM EDT) Glucose, POC 203(H) 65 - 199 mg/dL [facility] Comment: Supplemental ranges: <140 mg/dL before meals <180 mg/dL all other times of the day Blood 07/15/2021 11:4 6 AM EDT 07/15/2021 11:46 AM EDT Basim Barr MD POINT OF CARE TEST O RDERAWILLY Performing Organization Address City/[facility]/ZIP Co de Phone Number [facility] [place] [address] * POCT Glucose (07/15/2021 8:09 AM EDT) Glucose, POC 175 65 - 199 mg/dL [facility] Comment: Supplemental ranges: <140 mg/dL before meals <180 mg/dL all other times of the day Blood 07/15/2021 8:09 AM EDT 07/15/2021 8:09 AM EDT Basim Barr MD POINT OF CARE TEST O NATHANERAWILLY Performing Organization Address City/[facility]/ZIP Co de Phone Number [facility] [place] [address] * POCT Glucose (07/14/2021 8:43 PM EDT) Glucose, POC 185 65 - 199 mg/dL [facility] Comment: Supplemental ranges: <140 mg/dL before meals <180 mg/dL all other times of the day Blood 07/14/2021 8:43 PM EDT 07/14/2021 8:43 PM EDT Basim Barr MD POINT OF CARE TEST O NATHANERAWILLY [facility] [place] [address] * POCT Glucose (07/14/2021 3:57 PM EDT) Glucose, POC 114 65 - 199 mg/dL [facility] Comment: Supplemental ranges: <140 mg/dL before meals <180 mg/dL all other times of the day Blood 07/14/2021 3:57 PM EDT 07/14/2021 3:57 PM EDT Basim Barr MD POINT OF CARE TEST O RDERAWILLY Performing Organization Address City/[facility]/ZIP Co de Phone Number [facility] [place] [address] * POCT Glucose (07/14/2021 11:09 AM EDT) [facility] Glucose, POC 159 65 - 199 mg/dL [facility] Comment: Supplemental ranges: <140 mg/dL before meals <180 mg/dL all other times of the day Blood 07/14/2021 11:0 9 AM EDT 07/14/2021 11:09 AM EDT Basim Barr MD POINT OF CARE TEST O RDERAWILLY Performing Organization Address [facility] Co de Phone Number [facility] [place] [place] [address] * IR OR VASC Aniogram Image Storage Only (07/14/2021 10:41 AM EDT) Narrative [facility] - 07/14/2021 10:41 AM EDT This exam is auto-finalizing. It's purpose is for storage only. Basim Barr MD IM FILM LIBRARY ORD ERABLES Performing Organization Address City/[facility] Co de Phone Number [place], [place] * COVID-19 PCR (07/14/2021 10:00 AM EDT) Pathologist [facility] SARS-CoV-2 RNA (Rapid) Not Detected Not Detected [facility] Comment: This result should be [...] using the [employer]plex[employer] COVID-19 Direct Assay by [employer] as authorized by the FDA issued Emergency [...] Department of Pathology and Laboratory Medicine at [facility], certified under the Clinical Laboratory Improvement [...] fact sheets at the following FDA website: https://www.fda.gov/medical-devices/lqfjcfqttog-jotacka-0765-ocmzs-36-ygjhifykg- use-a vkglupxuqbhxc-xhmbsty-lrnkzdr/lcbvy-hycxcgjfhvy-qfrk SARS-CoV-2 Source PLATE MOUNTER Swab MA RY [facility] Nasopharyngeal Swab 07/15/19 10:00 AM EDT 07/14/2021 10:43 AM EDT Comment:Symptoms->Surveillan ce Narrative Resulting Agency Comment Spec In Lab Basim Barr MD MICROBIOLOGY - GENER AL ORDERABLES Performing Organization Address [facility]/ZIP Co de Phone Number [facility] [place] [address] * POCT Glucose (07/14/2021 7:36 AM EDT) Glucose, POC 174 65 - 199 mg/dL [facility] Comment: Supplemental ranges: <140 mg/dL before meals <180 mg/dL all other times of the day Blood 07/14/2021 7:36 AM EDT 07/14/2021 7:36 AM EDT Basim Barr MD POINT OF CARE TEST O RDERABLES Performing Organization Address [facility] Co de Phone Number [facility] [place] [address] * Vitamin B12 (07/14/2021 7:16 AM EDT) Vitamin B12 483 232 - 1,245 pg/mL [facility] Blood Venous Draw / Unknown 07/14/2021 7:16 AM EDT 07/14/2021 7:30 AM EDT Narrative Resulting Agency Comment Spec In Lab Sandra Murphy MD CHEMISTRY ORDERABL ES Performing Organization Address [facility] Co de Phone Number [facility] [address] * (ABNORMAL) Hemogram (07/14/2021 7:16 AM EDT) White Blood Cell 7.4 4.0 - 9.5 x10(3)/mc L [facility] Red Blood Cell 4.15(L) 4.58 - 5.54 x10(6)/mc L [facility] Hemoglobin 13.0(L) 13.7 - 16.5 g/dL [facility] Hematocrit 39.4(L) 40.5 - 48.5 % [facility] Mean Cell Volume 94.9(H) 82.9 - 93.1 fL [facility] Mean Cell Hemoglobin 31.3 27.5 - 32.1 pg [facility] Mean Cell Hemoglobin Concentration 33.0 32.0 - 35.7 g/dL [facility] Platelet 234 145 - 357 x10(3)/mc L [facility] RDW Standard Deviation 46.5(H) 36.0 - 45.0 [facility] RDW coefficient of variation 13.4 11.4 - 13.8 % [facility] Mean Platelet Volume 9.9 7.6 - 12.9 [facility] NRBC% auto 0.0 % [facility] NRBC Absolute 0.000 0.000 - 0.000 x10(3)/mc L [facility] Blood 07/14/2021 7:16 AM EDT 07/14/2021 7:20 AM EDT Narrative Resulting Agency Comment Spec In Lab Basim Barr MD HEMATOLOGY ORDERABLE S [facility] [place] [address] * (ABNORMAL) Basic Metabolic Panel (non-fasting) (07/14/2021 7:16 AM EDT) Glucose 184 65 - 199 mg/dL [facility] Comment:Diabetes: >=200 mg/d L plus symptoms Blood Urea Nitrogen 13 10 - 20 mg/dL [facility] Creatinine 0.71(L) 0.80 - 1.50 mg/dL [facility] Sodium 138 135 - 145 mmol/L [facility] Carbon Dioxide 22 22 - 31 mmol/L [facility] Anion Gap 13 5 - 15 mmol/L [facility] Calcium 9.0 8.5 - 10.5 mg/dL [facility] Est Glomerular Filtration Rate 93 >=60 mL/min/1. 73 m?? [facility] In Lab Basim Barr MD CHEMISTRY ORDERABLES [facility] [place] [address] * Prealbumin (07/14/2021 7:16 AM EDT) Prealbumin 23 20 - 40 mg/dL [facility] Comment: Prealbumin levels are generally lower in the pediatric population; adult concentrations are usually attained near puberty. Blood 07/14/2021 7:16 AM EDT 07/14/2021 7:20 AM EDT Narrative Resulting Agency Comment Spec In Lab Basim Barr MD CHEMISTRY ORDERABLES [facility] [place] [address] * SCAN DOC: IMPLANTABLE DEVICES (07/14/2021 12:00 [...] Discontinued, Routine 1718 (Given - Provider: Tonja Coe, AYE) 1602 (Given - Provider: Tonja Coe, AYE) carvediloL (Coreg) tablet 25 mg 25 [...] Coe RN) 0909 (Given - Provider: Tonja Coe, AYE) 0843 (Given - Provider: Inga Joel, AYE) [...] Tonja Coe RN)2102 (Given - Provider: Honey Farias, AYE) 0905 (Not Given - Provider: Tonja Coe [...] 10 mg, Oral, DAILY, First dose on 07/15/21 at 0900, Until Discontinued, Routine 0820 (Given [...] Routine 0319 (New Bag - Provider: Chayo Wtakins RN)0800 (Rate/Dose Change - Provider: Tonja Coe, AYE)0815 (Rate/Dose Change - Provider: Tonja Coe, AYE)0900 (Stopped - Provider: Tonja Coe, AYE) PRN Medication Order 07/15/2021 07/16/2021 07/17/2021 dextrose [...] goal., Routine 0219 (Given - Provider: Honey Farias, AYE) labetaloL (Normodyne) (5 mg/mL) injection solution 20 [...] 4mg documented in this encounter Care Teams Safety And Skill Based Pay Manager Relationship Specialty Start Date End Date Alo Carey DO [address] [place] [address] [place] [address] PCP - General Internal Medicine 08/31/20 07/03/23 documented as of this encounter
--- OUTSIDE RECORDS SUMMARY | 2024-03-26 10:40 | XMS_ITS | Encounter Summary ---
[place] [address] Care Team Providers Care School Bus Attendant Name Role Phone Alo Carey Primary Care Provider [phone] Encounter Details Date Type Department Care Team (Late Contact Info) Description 06/02/2021 Orders Only Radiation Oncology at [address] [place] [address] Bigg Peters MD [address] [place] [address] DR RADIATION ONCOLOGY [place], [place] [id number] Social History Tobacco Use Types Packs/Day Years [...] AM EST Office Visit Hematology/Oncology at [address] [phone] Cl Hess MD [facility] [place] [address] HEMATOLOGY AND ONCOLOGY [place], [place] [id number] 04/09/2024 10:00 AM EST Infusion Hematology Oncology at [address] [phone] 04/23/2024 9:30 AM EST Office Visit Hematology/Oncology at [address] [phone] Cl Hess MD [facility] [place] [address] [address] HEMATOLOGY AND ONCOLOGY [place], [place] [id number] 04/23/2024 10:00 AM EST Infusion Hematology Oncology at [address] [phone] 05/18/2024 4:30 PM EDT TH Visit (TeleHealth) [place] [address] Mlaachi Rothman MD [facility] [place] [address] 09/24/2024 9:00 AM EDT Office Visit Radiation Oncology at [address] [phone] Ping Moore PA [facility] DR HEMATOLOGY [place] [address] documented as of this encounter Visit Diagnoses Not on filedocumented in this encounter Care Teams School Bus Attendant Relationship Specialty Start Date End Date Alo Carey DO [address] [place] [address] [place] [phone] PCP - General Internal Medicine 08/31/20 07/03/23 documented as of this encounter
--- OUTSIDE RECORDS SUMMARY | 2024-03-26 10:40 | XMS_ITS | Encounter Summary ---
Author Organization [facility] [place] [address] Care Team Providers Care Welding Pantograph Operator Name Role Phone CherryAlo Lon RUTHERFORD Primary Care Provider [phone] Reason for Referral * Diagnostic Test (Routine) - Closed Specialty Diagnoses / Procedures Referred By Marques livingston Referred To Contact Diagnoses Stenosis of carotid artery, unspecified laterality History of cerebrovascular accident History of carotid endarterectomy Procedures Carotid Duplex, Bilateral Al Huerta APRN [facility] [place] [address] [facility] [address] [place] [address] Referral ID Status Reason Start Date Expiration Date V isits Requested Visits Authorized [id number] Closed Specialty Service Requested 07/16/2021 07/16/2022 1 [...] Expiration Date Visits Re quested Visits Authorized [id number] 1 1 Encounter Details Date Type Department Care Team (Latest Contact Info) Description 07/14/2021 6:53 AM EDT - 07/17/2021 4:32 PM EDT Hospital Encounter [facility] Progressive Care Unit [facility] [place] [id number] Basim Barr MD [facility] [place] [address] Stenosis of carotid artery, unspecified laterality; Pre-op [...] Attending Physician: Basim Barr MD Discharging Provider: Magra Joseph APRN Discharging Service: Vascular Surgery Operations/Major [...] R TCAR performed with predilation to 4.5mm. [id number] Enroute stent placed and post- dilated to [...] PM STJ RAD/ONC, TREATMENT Radiation Oncology at [facility] Arrive at: [facility] door at end of hallway [phone] 07/27/2021 2:45 PM STJ RAD/ONC, TREATMENT Radiation Oncology at [facility] Arrive at: [facility] door at end of hallway [phone] 07/28/2021 12:15 PM STJ RAD/ONC, TREATMENT Radiation Oncology at [facility] Arrive at: [facility] door at end of hallway [phone] 08/01/2021 12:45 PM STJ RAD/ONC, TREATMENT Radiation Oncology at [facility] Arrive at: [facility] door at end of hallway [phone] 08/02/2021 12:45 PM STJ RAD/ONC, TREATMENT Radiation Oncology at [facility] Arrive at: [facility] door at end of hallway [phone] 08/03/2021 12:45 PM STJ RAD/ONC, TREATMENT Radiation Oncology at [facility] Arrive at: [facility] door at end of hallway [phone] 08/04/2021 1:00 PM STJ RAD/ONC, TREATMENT Radiation Oncology at [facility] Arrive at: [facility] door at end of hallway [phone] 08/07/2021 12:45 PM STJ RAD/ONC, TREATMENT Radiation Oncology at [facility] Arrive at: [facility] door at end of hallway [phone] 08/08/2021 12:45 PM STJ RAD/ONC, TREATMENT Radiation Oncology at [facility] Arrive at: [facility] door at end of hallway [phone] 08/09/2021 12:45 PM STJ RAD/ONC, TREATMENT Radiation Oncology at [facility] Arrive at: [facility] door at end of hallway [phone] 08/10/2021 12:45 PM STJ RAD/ONC, TREATMENT Radiation Oncology at [facility] Arrive at: [facility] door at end of hallway [phone] 08/11/2021 1:00 PM STJ RAD/ONC, TREATMENT Radiation Oncology at [facility] Arrive at: [facility] door at end of hallway [phone] 08/14/2021 12:45 PM STJ RAD/ONC, TREATMENT Radiation Oncology at [facility] Arrive at: [facility] door at end of hallway [phone] 08/15/2021 12:45 PM STJ RAD/ONC, TREATMENT Radiation Oncology at [facility] Arrive at: [facility] door at end of hallway [phone] 08/16/2021 12:45 PM STJ RAD/ONC, TREATMENT Radiation Oncology at [facility] Arrive at: [facility] door at end of hallway [phone] 08/17/2021 12:45 PM STJ RAD/ONC, TREATMENT Radiation Oncology at [facility] Arrive at: [facility] door at end of hallway [phone] 08/18/2021 12:45 PM STJ RAD/ONC, TREATMENT Radiation Oncology at [facility] Arrive at: [facility] door at end of hallway [phone] 08/21/2021 12:45 PM STJ RAD/ONC, TREATMENT Radiation Oncology at [facility] Arrive at: [facility] door at end of hallway [phone] 08/22/2021 12:45 PM STJ RAD/ONC, TREATMENT Radiation Oncology at [facility] Arrive at: [facility] door at end of hallway [phone] 08/23/2021 12:45 PM STJ RAD/ONC, TREATMENT Radiation Oncology at [facility] Arrive at: [facility] door at end of hallway [phone] 08/24/2021 12:45 PM STJ RAD/ONC, TREATMENT Radiation Oncology at [facility] Arrive at: [facility] door at end of hallway [phone] 08/25/2021 12:45 PM STJ RAD/ONC, TREATMENT Radiation Oncology at [facility] Arrive at: [facility] door at end of hallway [phone] 08/28/2021 12:45 PM STJ RAD/ONC, TREATMENT Radiation Oncology at [facility] Arrive at: [facility] door at end of hallway [phone] 08/29/2021 12:45 PM STJ RAD/ONC, TREATMENT Radiation Oncology at [facility] Arrive at: [facility] door at end of hallway [phone] 08/30/2021 12:45 PM STJ RAD/ONC, TREATMENT Radiation Oncology at [facility] Arrive at: [facility] door at end of hallway [phone] 08/31/2021 12:45 PM STJ RAD/ONC, TREATMENT Radiation Oncology at [facility] Arrive at: [facility] door at end of hallway [phone] 09/01/2021 12:45 PM STJ RAD/ONC, TREATMENT Radiation Oncology at [facility] Arrive at: [facility] door at end of hallway [phone] 09/05/2021 12:45 PM STJ RAD/ONC, TREATMENT Radiation Oncology at [facility] Arrive at: [facility] door at end of hallway [phone] Future Orders Complete By Expires Carotid Duplex, Bilateral [VAS1 Custom] 08/16/2021 07/16/2022 Process Instructions: There is no in-house vascular cytogenetics laboratory manager available on weeknights (5pm-8am), weekends, or holidays. IF THIS IS A REQUEST FOR AN EMERGENT STUDY DURING THOSE HOURS, please have the senior provider responsible for the patient page the Vascular Surgery Fellow/Senior Resident parks and recreation manager to discuss options. Scheduling Instructions: Questions: Indication for study/signs & symptoms: s/p R TCAR Question to be answered: patency Preferred location?: [facility] Carotid Duplex, Bilateral [VAS1 Custom] 01/16/2022 07/16/2022 Process Instructions: There is no in-house vascular cytogenetics laboratory manager available on weeknights (5pm-8am), weekends, or holidays. IF THIS IS A REQUEST FOR AN EMERGENT STUDY DURING THOSE HOURS, please have the senior provider responsible for the patient page the Vascular Surgery Fellow/Senior Resident parks and recreation manager to discuss options. Scheduling Instructions: Questions: Indication for study/signs & symptoms: s/p R TCAR Question to be answered: patency Preferred location?: [facility] XR Neck Soft Tissue (Generic) [70533 Custom] 01/16/2022 07/16/2022 Process Instructions: Scheduling Instructions: Questions: Where will study be performed?: [facility] Radiology Portable exam?: Reason for exam and clinical history: s/p R TCAR, assess for stent fracture Clinical information / fernando questions for radiologist: Stat read required?: Date of injury if applicable: Requested Time: Anticoagulation & Antiplatelet: Anticoagulation: not indicated Antiplatelet: Agent: ASA, Plavix Indication:ASCVD Intended Duration: ferry terminal supervisor For questions regarding these medications, please contact: [...] vascular procedure at [facility] in [place]: shaking Has tolerated MRI and CT contrast. [...] or questions please call our office at [phone] For issues on weeknights after 5pm and weekends please call [phone] and ask for the Vascular Fellow parks and recreation manager. documented in this encounter Discharge Instructions * [...] or questions please call our office at [phone] For issues on weeknights after 5pm and weekends please call [phone] and ask for the Vascular Fellow parks and recreation manager. documented in this encounter Medications at Time [...] PO hydration Anticoagulation: N/A Antiplatelet: ASA, plavix, long-term Lexi Walker MD 07/16/2021 Pager: [phone] * Honey Farias RN - 07/16/2021 5:39 [...] Intake/Output Summary (Last 24 hours) at 07/15/2021 0904 Last data filed at 07/15/2021 0541 Gross [...] to void Anticoagulation: N/A Antiplatelet: ASA, plavix, long-term Lexi Walker MD 07/15/2021 Pager: [phone] * Honey Farias RN - 07/15/2021 3:10 [...] change. PRN ZOfran 4mg given IV. 4W Brusher Operator at bedside. MD Smallwood was made aware and came to bedside. Patient to be transferred to higher level of care for BP control with Nicardipine gtt. 2110~ Hydralazine 20mg given for BP 165/75 2132~ BP 133/66, HR91 2305~ Nicardipine gtt started at 5mg/hr for BP 158/81 by 4W RN Brusher Operator, to titrate accordingly. MD Smallwood was paged and verified if the witt should still be removed at 12midnight considering that patient will be moved to PCU, awaiting call back for close monitoring. 253~ report given to REAL ESTATE PORTFOLIO MANAGERAYE Méndez. Patient was transferred to PCU [...] pain with oxycodone and tylenol for headache. 5460-1161: Patient ok 'd to go to floor, [...] ??? Colon adenocarcinoma 2009 recieved chemo in [place] ??? Coronary artery disease ??? Coronary artery [...] Engle MD at [facility] MAIN OR ??? PRO TOTAL HIP ARTHROPLASTY Left 10/10/2020 TOTAL HIP ARTHROPLASTY - POSTERIOR (WRVU 20.72) performed by Ismael Wu MD at [facility] MAIN OR Functional Status/Social Hx: Lives [...] proceed. Charleen Hi Madera Vascular Surgery Pager #[phone] documented in this encounter Procedure Notes * Jared Melvin MD - 07/14/2021 10:56 AM EDT NEURODIAGNOSTIC LABORATORY [facility] INTRAOPERATIVE MONITORING REPORT Name: Tha Sadler : 1950 Date of Surgery: 07/14/2021 Surgeon(s): Basim Barr MD; Wojciech Madera MD Surgical Procedure: right trans-carotid arterial revascularization (TCAR) Monitoring Procedure: Intraoperative scalp EEG monitoring and bilateral median nerve somatosensory evoked potentials (SSEPs). CPT Codes: 43196 (EEG), 31029 (upper SSEP bilateral), 08280 (IOM, 5 units), 83745 (IOM, 1 unit). Intraoperative neurophysiologic monitoring was [...] COVID test: Lab Results Component Value Date [id number] Not Detected 07/14/2021 Present on Admission: ??? [...] care provider on file: Alo Carey DO [phone] Pharmacy: [id number] [facility] & [address] [phone] Advance Care Planning: Attempt Cardiopulmonary Resuscitation - Inpatient <no information> -Advanced Directive: No, declines Current Functional Ability: Assistive Equipment and Assistive Person Functional Status Prior to Admission: Assistive Equipment Home Environment: Others in the home: sibling(s). Current Living Arrangements: home/apartment/condo. Accessibility Concerns:no concerns. Current DME: walker - rolling [phone] [facility] [address] Social & Family Supports: All names listed below confirmed with patient as current and correct Extended Emergency Contact Information Primary Emergency Contact: AMY ROPER Address: [address] [place] [id number] [place] [address] of [employer] Relation: Significant Other Secondary [...] via car when medically ready. Registered Nurse Hadoop Application Developer / Hazardous Waste Management Specialist will continue to follow patient???s progress and remain available if situation changes for coordination of care, psychosocial support and/or discharge planning. Office of Care Management Gissel SANTOS, RN Phone: [phone] Pager: [phone] * Plan of Care - Charlotte Sun [...] Madera MD - 07/14/2021 11:16 AM EDT [facility] Operative Note Patient Name: Tha Sadler : [id number] MR#: [id number] Case Date: 07/14/2021 Surgeon: Surgeon(s) and Role: [...] imaging. R TCAR performed with predilation to 4.5mm.[id number] Enroute stent placed and post-dilated to 5mm. [...] was exchanged for the Enroute Neuroprotection System (NURSING HOME AIDE) arterial sheath. After confirming appropriate position, this [...] a 4.5x30mm angioplasty balloon. The Enroute stent ([id number]) was then deployed. Post-dilation was performed with [...] Implant Name Type Inv. Item Serial No. Sales Process Manager Lot No. LRB No. Used Action SYSTEM STENT ENROUTE [id number] RX NIT ([id number]) (AUTOREQ) - [id number] IMPLANTS SYSTEM STENT ENROUTE [id number] RX NIT ([id number]) (AutoReq) [facility] [id number] Right 1 Implanted Associated attestation - Basim [...] AM EST Office Visit Hematology/Oncology at [address] [phone] Cl Hess MD [facility] [place] [address] HEMATOLOGY AND ONCOLOGY [place], [place] [address] 04/09/2024 10:00 AM EST Infusion Hematology Oncology at [address] [phone] 04/23/2024 9:30 AM EST Office Visit Hematology/Oncology at [address] [phone] Cl Hess MD [facility] [place] [address] HEMATOLOGY [place] [address] 04/23/2024 10:00 AM EST Infusion Hematology Oncology at [address] [address] 05/18/2024 4:30 PM EDT TH Visit (TeleHealth) [place] [address] Malachi Rothman MD [facility] DR RADIATION ONCOLOGY [employer] [facility] [place] [address] 09/24/2024 9:00 AM EDT Office Visit Radiation Oncology at [address] [phone] Ping Moore PA [facility] HEMATOLOGY [place] [address] documented as of this encounter Procedures Procedure [...] 07/14/2021 10:41 AM EDT RAPID COVID-19 PCR ([facility]) Routine 07/14/2021 10:00 AM EDT Exploration Not Followed By Surg Neck Artery ([id number]) 07/14/2021 8:42 AM EDT Stenosis of carotid artery, unspecified laterality Pre-op testing Place Transcatheter Stent, Cca W Embolic Ect (01971) 07/14/2021 8:42 AM EDT Stenosis of carotid [...] Text Report Department: Vascular Surgery Lab Patient: [id number] (THA SADLER) CPT: 45692 Referring Physician: AL HUERTA ?? Phone: Indications: [...] Huerta APRN VASCULAR ORDERABLES Performing Organization Address [facility] Co de Phone Number VASCUBASE * POCT Glucose (07/17/2021 8:07 AM EDT) Glucose, POC 151 65 - 199 mg/dL [facility] Comment: Supplemental ranges: <140 mg/dL before meals <180 mg/dL all other times of the day Blood 07/17/2021 8:07 AM EDT 07/17/2021 8:07 AM EDT Basim Barr MD POINT OF CARE TEST O DANIEL Performing Organization Address [facility] Co de Phone Number [facility] [place] [address] * (ABNORMAL) POCT Glucose (07/16/2021 9:35 PM EDT) Glucose, POC 224(H) 65 - 199 mg/dL [facility] Comment: Supplemental ranges: <140 mg/dL before meals <180 mg/dL all other times of the day Blood 07/16/2021 9:35 PM EDT 07/16/2021 9:35 PM EDT Basim Barr MD POINT OF CARE TEST Brady SANCHEZ Performing Organization Address [facility] Co de Phone Number [facility] [place] [address] * POCT Glucose (07/16/2021 3:51 PM EDT) Glucose, POC 164 65 - 199 mg/dL [facility] Comment: Supplemental ranges: <140 mg/dL before meals <180 mg/dL all other times of the day Blood 07/16/2021 3:51 PM EDT 07/16/2021 3:51 PM EDT Basim Barr MD POINT OF CARE TEST O RDERAWILLY Performing Organization Address [facility] Co de Phone Number [facility] [place] [address] * POCT Glucose (07/16/2021 12:00 PM EDT) Glucose, POC 147 65 - 199 mg/dL [facility] Comment: Supplemental ranges: <140 mg/dL before meals <180 mg/dL all other times of the day Blood 07/16/2021 12:0 0 PM EDT 07/16/2021 12:00 PM EDT Basim Barr MD POINT OF CARE TEST O NATHANERAWILLY Performing Organization Address [facility] Co de Phone Number [facility] [place] [address] * POCT Glucose (07/16/2021 7:51 AM EDT) Glucose, POC 150 65 - 199 mg/dL [facility] Comment: Supplemental ranges: <140 mg/dL before meals <180 mg/dL all other times of the day Blood 07/16/2021 7:51 AM EDT 07/16/2021 7:51 AM EDT Basim Barr MD POINT OF CARE TEST O NATHANERAWILLY Performing Organization Address [facility] Co de Phone Number [facility] [place] [address] * POCT Glucose (07/15/2021 8:59 PM EDT) Glucose, POC 197 65 - 199 mg/dL [facility] Comment: Supplemental ranges: <140 mg/dL before meals <180 mg/dL all other times of the day Blood 07/15/2021 8:59 PM EDT 07/15/2021 8:59 PM EDT Basim Barr MD POINT OF CARE TEST O RDERABLES Performing Organization Address [facility]/ZIP Co de Phone Number [facility] [place] [address] * POCT Glucose (07/15/2021 3:56 PM EDT) Glucose, POC 197 65 - 199 mg/dL [facility] Comment: Supplemental ranges: <140 mg/dL before meals <180 mg/dL all other times of the day Blood 07/15/2021 3:56 PM EDT 07/15/2021 3:56 PM EDT Basim Barr MD POINT OF CARE TEST O RDERABLES Performing Organization Address [facility] de Phone Number [facility] [place] [address] * (ABNORMAL) POCT Glucose (07/15/2021 11:46 AM EDT) Glucose, POC 203(H) 65 - 199 mg/dL [facility] Comment: Supplemental ranges: <140 mg/dL before meals <180 mg/dL all other times of the day Blood 07/15/2021 11:4 6 AM EDT 07/15/2021 11:46 AM EDT Basim Barr MD POINT OF CARE TEST O RDERABLES Performing Organization Address [facility] de Phone Number [facility] [place] [address] * POCT Glucose (07/15/2021 8:09 AM EDT) Glucose, POC 175 65 - 199 mg/dL [facility] Comment: Supplemental ranges: <140 mg/dL before meals <180 mg/dL all other times of the day Blood 07/15/2021 8:09 AM EDT 07/15/2021 8:09 AM EDT Basim Barr MD POINT OF CARE TEST O RDERABLES [facility] [place] [address] * POCT Glucose (07/14/2021 8:43 PM EDT) Glucose, POC 185 65 - 199 mg/dL [facility] Comment: Supplemental ranges: <140 mg/dL before meals <180 mg/dL all other times of the day Blood 07/14/2021 8:43 PM EDT 07/14/2021 8:43 PM EDT Basim Barr MD POINT OF CARE TEST O RDERAWILLY Performing Organization Address [facility] Co de Phone Number [facility] [place] [address] * POCT Glucose (07/14/2021 3:57 PM EDT) Glucose, POC 114 65 - 199 mg/dL [facility] Comment: Supplemental ranges: <140 mg/dL before meals <180 mg/dL all other times of the day Blood 07/14/2021 3:57 PM EDT 07/14/2021 3:57 PM EDT Basim Barr MD POINT OF CARE TEST O DANIEL Performing Organization Address [facility] Co de Phone Number [facility] [place] [address] * POCT Glucose (07/14/2021 11:09 AM EDT) Glucose, POC 159 65 - 199 mg/dL [facility] Comment: Supplemental ranges: <140 mg/dL before meals <180 mg/dL all other times of the day Blood 07/14/2021 11:0 9 AM EDT 07/14/2021 11:09 AM EDT Basim Barr MD POINT OF CARE TEST O DANIEL Performing Organization Address City/[facility]/ZIP Co de Phone Number [facility] [place] [address] * IR OR VASC Aniogram Image Storage Only (07/14/2021 10:41 AM EDT) Narrative VJ FALL - 07/14/2021 10:41 AM EDT This exam is auto-finalizing. It's purpose is for storage only. Basim Barr MD IMG FILM LIBRARY ORD ERABLES [facility] [place] Luz Maria [place] * COVID-19 PCR (07/14/2021 10:00 AM EDT) SARS-CoV-2 RNA (Rapid) Not Detected Not Detected [facility] Comment: This result should [...] using the Simplexa COVID-19 Direct Assay by [employer] as authorized by the FDA issued Emergency [...] Department of Pathology and Laboratory Medicine at [facility], certified under the Clinical Laboratory Improvement Amendments [...] fact sheets at the following FDA website: https://www.fda.gov/medical-devices/mvqgrbiggdy-zafqhbo-1213-oglot-31-dodkrdpto- use-a nxtyseqysadgl-vguekuz-szjcnmp/iorfk-zijneljrhpi-tijf SARS-CoV-[address] Source [address] [employer] Swab [address] [facility] Nasopharyngeal Swab 07/15/19 10:00 AM EDT 07/14/2021 10:43 AM EDT Comment:Symptoms->Surveillan ce Narrative Resulting Agency Comment Spec In Lab Basim Barr MD MICROBIOLOGY - GENER AL ORDERABLES Performing Organization Address City/[facility]/ZIP Co de Phone Number [facility] [place] [address] * POCT Glucose (07/14/2021 7:36 AM EDT) Glucose, POC 174 65 - 199 mg/dL [facility] Comment: Supplemental ranges: <140 mg/dL before meals <180 mg/dL all other times of the day Blood 07/14/2021 7:36 AM EDT 07/14/2021 7:36 AM EDT Basim Barr MD POINT OF CARE TEST O RDERABLES Performing Organization Address City/[facility]/ZIP Co de Phone Number [facility] [place] [address] * Vitamin B12 (07/14/2021 7:16 AM EDT) Vitamin B12 483 232 - 1,245 pg/mL [facility] Blood Venous Draw / Unknown 07/14/2021 7:16 AM EDT 07/14/2021 7:30 AM EDT Narrative Resulting Agency Comment Spec In Lab Sandra Murphy MD CHEMISTRY ORDERABL ES [facility] [place] [address] * (ABNORMAL) Hemogram (07/14/2021 7:16 AM EDT) White Blood Cell 7.4 4.0 - 9.5 x10(3)/mc L [facility] Red Blood Cell 4.15(L) 4.58 - 5.54 x10(6)/mc L [facility] Hemoglobin 13.0(L) 13.7 - 16.5 g/dL [facility] Hematocrit 39.4(L) 40.5 - 48.5 % [facility] Mean Cell Volume 94.9(H) 82.9 - 93.1 fL [facility] Mean Cell Hemoglobin 31.3 27.5 - 32.1 pg [facility] Mean Cell Hemoglobin Concentration 33.0 32.0 - 35.7 g/dL [facility] Platelet 234 145 - 357 x10(3)/mc L [facility] RDW Standard Deviation 46.5(H) 36.0 - 45.0 [facility] RDW coefficient of variation 13.4 11.4 - 13.8 % [facility] Mean Platelet Volume 9.9 7.6 - 12.9 [facility] NRBC% auto 0.0 % [facility] NRBC Absolute 0.000 0.000 - 0.000 x10(3)/mc L [facility] Blood 07/14/2021 7:16 AM EDT 07/14/2021 7:20 AM EDT Narrative Resulting Agency Comment Spec In Lab Basim Barr MD HEMATOLOGY ORDERABLE S [facility] [place] [address] * (ABNORMAL) Basic Metabolic Panel (non-fasting) (07/14/2021 7:16 AM EDT) Glucose 184 65 - 199 mg/dL [facility] Comment:Diabetes: >=200 mg/d L plus symptoms Blood Urea Nitrogen 13 10 - 20 mg/dL [facility] Creatinine 0.71(L) 0.80 - 1.50 mg/dL [facility] Sodium 138 135 - 145 mmol/L [facility] Potassium 4.3 3.5 - 5.0 mmol/L [facility] Comment: Please note: ??Patients with WBC >100,000 may have falsely elevated Potassium levels. ??For accurate Potassium quantification in these patients send serum separator tube (gold top) for subsequent determinations. ??Contact the Clinical Chemistry Laboratory if there are any questions. Chloride 103 98 - 107 mmol/L [facility] Carbon Dioxide 22 22 - 31 mmol/L [facility] Anion Gap 13 5 - 15 mmol/L [facility] Calcium 9.0 8.5 - 10.5 mg/dL [facility] Est Glomerular Filtration Rate 93 >=60 mL/min/1. 73 m?? [facility] Comment: This patient? s [...] Barr MD CHEMISTRY ORDERABLES Performing Organization Address City/[facility]/ZIP Co de Phone Number [facility] [place] [address] * Prealbumin (07/14/2021 7:16 AM EDT) Prealbumin 23 20 - 40 mg/dL [facility] Comment: Prealbumin levels are generally lower in the pediatric population; adult concentrations are usually attained near puberty. Blood 07/14/2021 7:16 AM EDT 07/14/2021 7:20 AM EDT Narrative Resulting Agency Comment Spec In Lab Basim Barr MD CHEMISTRY ORDERABLES Performing Organization Address [facility] Co de Phone Number [facility] [place] [address] * SCAN DOC: IMPLANTABLE DEVICES (07/14/2021 12:00 [...] Coe, AYE) 1602 (Given - Provider: Tonja Coe RN) carvediloL (Coreg) tablet 25 mg 25 mg, Oral, 2 TIMES DAILY WITH MEALS, First dose (after last modification) on Sat07/14/21 at 1500, Until Discontinued, May move up 5pm dose to 2pm on 07/14, STAT 0819 (Given - Provider: Tonja Coe RN)1718 (Given - Provider: Tonja Coe RN) 0905 (Given - Provider: oTnja Coe, AYE)1602 (Given - Provider: Tonja Coe RN) 0846 [...] Coe RN) 0843 (Given - Provider: Inga M Maiorano, RN) insulin lispro (HumaLOG;Admelog) (100 unit/mL) subcutaneous [...] Joel, AYE)1130 (Not Given - Provider: Inga Joel RN [...] 1 dose, On Sat07/16/21 at 0715, Routine 0902 (Given - Provider: Tonja Coe RN) lisinopriL (Zestril) tablet 20 mg 20 mg, Oral, DAILY, First dose (after last modification) on Sat07/17/21 at 0900, Until Discontinued, Routine 0846 (Given - Provid er: Inga oJel RN) Continuous Medication Order 07/15/2021 07/16/2021 07/17/2021 [...] Coe RN)0815 (Rate/Dose Change - Provider: Tonja Coe, AYE)0900 [...] Farias, AYE)0406 (Given - Provider: Honey Farias, RN) ondansetron (pf) (Zofran) (2 mg/mL) injection [...] 4mg documented in this encounter Care Teams Welding Pantograph Operator Relationship Specialty Start Date End Date Alo Carey DO [address] [place] [address] [place] [phone] PCP - General Internal Medicine 08/31/20 07/03/23 documented as of this encounter
--- OUTSIDE RECORDS SUMMARY | 2024-03-26 10:40 | XMS_ITS | Encounter Summary ---
[place] [address] Care Team Providers Care Brewery Technician Name Role Phone Alo Carey Primary Care Provider [phone] Encounter Details Date Type Department Care Team (Late st Contact Info) Description 06/20/2021 Orders Only Radiation Oncology at [address] [place] [address] Bigg Peters MD [address] [place] [address] DR RADIATION ONCOLOGY [place], [place] [id number] Malignant neoplasm of prostate Social History Tobacco [...] AM EST Office Visit Hematology/Oncology at [address] [phone] Cl Hess MD [facility] [place] [address] [address] HEMATOLOGY AND ONCOLOGY [place], [place] [phone] 04/09/2024 10:00 AM EST Infusion Hematology Oncology at [address] [phone] 04/23/2024 9:30 AM EST Office Visit Hematology/Oncology at [address] [phone] Cl Hess MD [facility] [place] [address] Yessi Renee, [address] HEMATOLOGY AND ONCOLOGY [place], [place] [address] 04/23/2024 10:00 AM EST Infusion Hematology Oncology at [address] [phone] 05/18/2024 4:30 PM EDT TH Visit (TeleHealth) [place] [address] Malachi Rothman MD [facility] [place] [address] 09/24/2024 9:00 AM EDT Office Visit Radiation Oncology at [address] [phone] Ping Moore PA [facility] HEMATOLOGY [place] [address] documented as of this encounter Visit Diagnoses Diagnosis Malignant neoplasm of prostate documented in this encounter Care Teams Brewery Technician Relationship Specialty Start Date End Date Alo Carey DO [address] [place] [address] [place] [phone] PCP - General Internal Medicine 08/31/20 07/03/23 documented as of this encounter
--- OUTSIDE RECORDS SUMMARY | 2024-03-26 10:40 | XMS_ITS | Encounter Summary ---
[place] [address] Care Team Providers Care Chief Design Branch Name Role Phone Alo Carey DO Primary Care Provider [phone] Encounter Details Date Type Department Care Team (Late st Contact Info) Description 06/15/2021 Telephone [place] [phone] Leah Cabrera Social History Tobacco Use Types [...] AM EST Office Visit Hematology/Oncology at [address] [phone] Cl Hess MD [facility] [place] [address] HEMATOLOGY AND ONCOLOGY [place], [place] [id number] 04/09/2024 10:00 AM EST Infusion Hematology Oncology at [address] [phone] 04/23/2024 9:30 AM EST Office Visit Hematology/Oncology at [address] [phone] Cl Hess MD [facility] [place] [address] HEMATOLOGY AND ONCOLOGY [place], [place] [phone] 04/23/2024 10:00 AM EST Infusion Hematology Oncology at [address] [phone] 05/18/2024 4:30 PM EDT TH Visit (TeleHealth) [place] [address] Malachi Rothman MD [facility] [place] [address] 09/24/2024 9:00 AM EDT Office Visit Radiation Oncology at [address] [phone] Ping Moore PA [facility] [place] [address] documented as of this encounter Visit Diagnoses Not on filedocumented in this encounter Care Teams Chief Design Branch Relationship Specialty Start Date End Date Alo Carey DO NPI: [id number] [place] [address] [place] [phone] PCP - General Internal Medicine 08/31/20 07/03/23 documented as of this encounter
--- OUTSIDE RECORDS SUMMARY | 2024-03-26 10:40 | XMS_ITS | Encounter Summary ---
[place] [address] Care Team Providers Care Sales Representative [employer] Name Role Phone CherryAlo Lon RUTHERFORD Primary Care Provider [phone] Reason for Visit * Reason Onset Date Comments Pre Procedure Call 06/05/2021 Encounter Details Date Type Department Care Team (Late st Contact Info) Description 06/05/2021 Telephone [place] [phone] Ismael Wu MD [facility] [place] [address] Pre Procedure Call Social History Tobacco Use [...] surgery. Best number to reach the caller: [phone] Barr in vascular on [...] AM EST Office Visit Hematology/Oncology at [address] [phone] Cl Hess MD [facility] [place] [address] Yessi Renee APRN [address] [place] [address] DR HEMATOLOGY [place] [address] 04/09/2024 10:00 AM EST Infusion Hematology Oncology at [address] [phone] 04/23/2024 9:30 AM EST Office Visit Hematology/Oncology at [address] [phone] Cl Hess MD [facility] [place] [address] Yessi Renee APRN [address] [place] [address] DR HEMATOLOGY AND ONCOLOGY [place], [place] [address] 04/23/2024 10:00 AM EST Infusion Hematology Oncology at [address] [phone] 05/18/2024 4:30 PM EDT TH Visit (TeleHealth) [place] [address] Malachi Rothman MD [facility] [place] [address] 09/24/2024 9:00 AM EDT Office Visit Radiation Oncology at [address] [phone] Ping Moore PA [facility] DR [place] [address] documented as of this encounter Visit Diagnoses Not on filedocumented in this encounter Care Teams Sales Representative [employer] Relationship Specialty Start Date End Date Alo Carey DO [address] [place] [address] [place] [address] PCP - General Internal Medicine 08/31/20 07/03/23 documented as of this encounter
--- OUTSIDE RECORDS SUMMARY | 2024-03-26 10:40 | XMS_ITS | Encounter Summary ---
[place] [address] Care Team Providers Care Dispatch Lead Name Role Phone YungAlo santiago Primary Care Provider [phone] Reason for Visit * Reason Comments Simulation [...] Expiration Date Visits Re quested Visits Authorized [id number] 1 1 Encounter Details Date Type Department Care Team (Late st Contact Info) Description 07/11/2021 3:00 PM EDT Ancillary Appointment [place] [phone] Bigg Peetrs MD [address] [place] [address] [place] [address] Social History Tobacco Use Types Packs/Day Years [...] prostate cancer with Radiation Therapy here at [facility] Gold Coils (Fiducial Markers) Small gold filaments [...] Saturday 8 AM to 5 PM for [facility] for [facility] If you have questions about your [...] is urgent. A Radiation Oncology doctor is automation manager after our normal hours and on weekends. To call for urgent medical issues from radiation treatments that can not wait until normal business hours, please call and have the acetylene operator page the Radiation Oncologist automation manager. documented in this encounter Progress Notes * Bigg Peters MD - 07/11/2021 3:00 PM EDT Simulation Note for External Beam Radiation Treatment Planning [facility] Jae Sadler is a 71 y.o. [...] of any short term side effects or senior living complications of therapy. I anticipate his prescription [...] AM EST Office Visit Hematology/Oncology at [address] [phone] Cl Hess MD [facility] [place] [address] Yessi Renee APRN [address] [place] [address] [place] [address] 04/09/2024 10:00 AM EST Infusion Hematology Oncology at [address] [phone] 04/23/2024 9:30 AM EST Office Visit Hematology/Oncology at [address] [phone] Cl Hess MD [facility] [place] [address] Yessi Renee APRN [address] [place] [address] [place] [address] 04/23/2024 10:00 AM EST Infusion Hematology Oncology at [address] [phone] 05/18/2024 4:30 PM EDT TH Visit (TeleHealth) [place] [address] Malachi Rothman MD [facility] [place] [address] 09/24/2024 9:00 AM EDT Office Visit Radiation Oncology at [address] [phone] Ping Moore PA [facility] DR [place] [address] Scheduled Orders Name Type Priority Associated Diagnoses Orde r Schedule Simulation for Radiation Therapy Planning Procedures Routine Malignant neoplasm of prostate Ordered: 04/04/2021 documented as of this encounter Visit Diagnoses Not on filedocumented in this encounter Care Teams Dispatch Lead Relationship Specialty Start Date End Date Alo Carey DO [address] [place] [address] [place] [address] PCP - General Internal Medicine 08/31/20 07/03/23 documented as of this encounter
--- OUTSIDE RECORDS SUMMARY | 2024-03-26 10:40 | XMS_ITS | Encounter Summary ---
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 Dilation [...] AM EST Office Visit Hematology/Oncology at [address] [phone] Cl Hess MD [facility] [place] [address] Yessi Renee, [address] HEMATOLOGY AND ONCOLOGY [place], [place] [phone] 04/09/2024 10:00 AM EST Infusion Hematology Oncology at [address] [phone] 04/23/2024 9:30 AM EST Office Visit Hematology/Oncology at [address] [phone] Cl Hess MD [facility] [place] [place] [address] [address] HEMATOLOGY AND ONCOLOGY [place], [place] [phone] 04/23/2024 10:00 AM EST Infusion Hematology Oncology at [address] [phone] 05/18/2024 4:30 PM EDT TH Visit (TeleHealth) [place] [address] Malachi Rothman MD [facility] [place] [address] 09/24/2024 9:00 AM EDT Office Visit Radiation Oncology at [address] [phone] Ping Moore PA [facility] DR HEMATOLOGY [place] [address] documented as of this encounter Visit Diagnoses Not on filedocumented in this encounter Care Teams Reptile Farmer Relationship Specialty Start Date End Date Alo Carey DO [address] [place] [address] [place] [address] PCP - General Internal Medicine 08/31/20 07/03/23 documented as of this encounter
--- OUTSIDE RECORDS SUMMARY | 2024-03-26 10:40 | XMS_ITS | Encounter Summary ---
[place] [address] Care Team Providers Care Independent Distributor Name Role Phone Alo Carey DO Primary Care Provider [phone] Encounter Details Date Type Department Care Team (Late st Contact Info) Description 06/28/2021 Telephone Radiation Oncology at [address] [phone] Juli Tripathi RN Social History [...] PM EDT Radiation Oncology Nurse Telephone Note [place], [place] Telephone call to PCP, Dr Carey's [...] AM EST Office Visit Hematology/Oncology at [address] [phone] Cl Hess MD [facility] [place] [address] Yessi Renee APRN [address] [place] [address] DR [place]OLOGY [place] [address] 04/09/2024 10:00 AM EST Infusion Hematology Oncology at [address] [phone] 04/23/2024 9:30 AM EST Office Visit Hematology/Oncology at [address] [phone] Cl Hess MD [facility] [place] [address] Yessi Renee APRN [address] [place] [address] DR HEMATOLOGY AND ONCOLOGY [place], [place] [address] 04/23/2024 10:00 AM EST Infusion Hematology Oncology at [address] [phone] 05/18/2024 4:30 PM EDT TH Visit (TeleHealth) [place] [address] Malachi Rothman MD [facility] [place] [address] 09/24/2024 9:00 AM EDT Office Visit Radiation Oncology at [address] [phone] Ping Moore PA [facility] DR HEMATOLOGY [place] [address] documented as of this encounter Visit Diagnoses Not on filedocumented in this encounter Care Teams Independent Distributor Relationship Specialty Start Date End Date Alo Carey DO [address] [place] [address] [place] [address] PCP - General Internal Medicine 08/31/20 07/03/23 documented as of this encounter
--- OUTSIDE RECORDS SUMMARY | 2024-03-26 10:40 | XMS_ITS | Encounter Summary ---
[place] [address] Care Team Providers Care Nut Sorter Name Role Phone YungAlo santiago Primary Care Provider [phone] Encounter Details Date Type Department Care Team (Late st Contact Info) Description 06/30/2021 Telephone Radiation Oncology at [address] [phone] Juli Tripathi RN Social History [...] PM EDT Radiation Oncology Nurse Telephone Note [place], [place] Saturday06/30/21 11:[address] [...] AM EST Office Visit Hematology/Oncology at [address] [phone] Cl Hess MD [facility] [place] [address] [address] [place] [address] 04/09/2024 10:00 AM EST Infusion Hematology Oncology at [address] [phone] 04/23/2024 9:30 AM EST Office Visit Hematology/Oncology at [address] [phone] Cl Hess MD [facility] [place] [address] [address] [place] [address] 04/23/2024 10:00 AM EST Infusion Hematology Oncology at [address] [phone] 05/18/2024 4:30 PM EDT TH Visit (TeleHealth) [place] [address] Malachi Rothman MD [facility] [place] [address] 09/24/2024 9:00 AM EDT Office Visit Radiation Oncology at [address] [phone] Ping Moore PA [facility] HEMATOLOGY [place] [address] documented as of this encounter Visit Diagnoses Not on filedocumented in this encounter Care Teams Nut Sorter Relationship Specialty Start Date End Date Alo Carey DO [address] [place] [address] [place] [address] PCP - General Internal Medicine 08/31/20 07/03/23 documented as of this encounter
--- OUTSIDE RECORDS SUMMARY | 2024-03-26 10:40 | XMS_ITS | Encounter Summary ---
[place] [address] Care Team Providers Care Musical Instrument Mechanic Name Role Phone Alo Carey DO Primary Care Provider [phone] Encounter Details Date Type Department Care Team (Late st Contact Info) Description 06/12/2021 Orders [place] [phone] Marva Moura RN Stenosis of carotid artery, unspecified laterality; [...] AM EST Office Visit Hematology/Oncology at [address] [phone] Cl Hess MD [facility] [place] [address] Yessi Renee, [address] HEMATOLOGY AND ONCOLOGY [place], [place] [address] 04/09/2024 10:00 AM EST Infusion Hematology Oncology at [address] [phone] 04/23/2024 9:30 AM EST Office Visit Hematology/Oncology at [address] [phone] Cl Hess MD [facility] [place] [address] [address] HEMATOLOGY AND ONCOLOGY [place], [place] [address] 04/23/2024 10:00 AM EST Infusion Hematology Oncology at [address] [phone] 05/18/2024 4:30 PM EDT TH Visit (TeleHealth) [place] [address] Malachi Rothman MD [facility] [place] [address] 09/24/2024 9:00 AM EDT Office Visit Radiation Oncology at [address] [phone] Ping Moore PA [facility] DR [place] [address] documented as of this encounter Results * Prealbumin (07/14/2021 7:16 AM EDT) Prealbumin 23 20 - 40 mg/dL [facility] Comment: Prealbumin levels are generally lower in the pediatric population; adult concentrations are usually attained near puberty. Blood 07/14/2021 7:16 AM EDT 07/14/2021 7:20 AM EDT Narrative Resulting Agency Comment Spec In Lab Basim Barr MD CHEMISTRY ORDERABLES [facility] [place] [address] * (ABNORMAL) Basic Metabolic Panel (non-fasting) (07/14/2021 7:16 AM EDT) Glucose 184 65 - 199 mg/dL [facility] Comment:Diabetes: >=200 mg/d L plus symptoms Blood Urea Nitrogen 13 10 - 20 mg/dL [facility] Creatinine 0.71(L) 0.80 - 1.50 mg/dL [facility] Sodium 138 135 - 145 mmol/L [facility] Potassium 4.3 3.5 - 5.0 mmol/L [facility] Comment: Please note: ??Patients with WBC >100,000 may have falsely elevated Potassium levels. ??For accurate Potassium quantification in these patients send serum separator tube (gold top) for subsequent determinations. ??Contact the Clinical Chemistry Laboratory if there are any questions. Chloride 103 98 - 107 mmol/L [facility] Carbon Dioxide 22 22 - 31 mmol/L [facility] Anion Gap 13 5 - 15 mmol/L [facility] Calcium 9.0 8.5 - 10.5 mg/dL [facility] Est Glomerular Filtration Rate 93 >=60 mL/min/1. 73 m?? [facility] Comment: This patient? s estimated [...] In Lab Basim Barr MD CHEMISTRY ORDERABLES [facility] [place] [address] * (ABNORMAL) Hemogram (07/14/2021 7:16 AM EDT) White Blood Cell 7.4 4.0 - 9.5 x10(3)/mc L [facility] Red Blood Cell 4.15(L) 4.58 - 5.54 x10(6)/mc L [facility] Hemoglobin 13.0(L) 13.7 - 16.5 g/dL [facility] Hematocrit 39.4(L) 40.5 - 48.5 % [facility] Mean Cell Volume 94.9(H) 82.9 - 93.1 fL [facility] Mean Cell Hemoglobin 31.3 27.5 - 32.1 pg [facility] Mean Cell Hemoglobin Concentration 33.0 32.0 - 35.7 g/dL [facility] Platelet 234 145 - 357 x10(3)/mc L [facility] RDW Standard Deviation 46.5(H) 36.0 - 45.0 fL [facility] RDW coefficient of variation 13.4 11.4 - 13.8 % [facility] Mean Platelet Volume 9.9 7.6 - 12.9 [facility] NRBC% auto 0.0 % [facility] NRBC Absolute 0.000 0.000 - 0.000 x10(3)/mc L [facility] Blood 07/14/2021 7:16 AM EDT 07/14/2021 7:20 AM EDT Narrative Resulting Agency Comment Spec In Lab Basim Barr MD HEMATOLOGY ORDERABLE S [facility] [place] [address] documented in this encounter Visit Diagnoses Diagnosis Stenosis of carotid artery, unspecified laterality Pre-op testing Preoperative examination, unspecified documented in this encounter Care Teams Musical Instrument Mechanic Relationship Specialty Start Date End Date Alo Carey DO [address] [place] [address] [place] [phone] PCP - General Internal Medicine 08/31/20 07/03/23 documented as of this encounter
--- OUTSIDE RECORDS SUMMARY | 2024-03-26 10:40 | XMS_ITS | Encounter Summary ---
[place] [address] Care Team Providers Care Mission Support Specialist Name Role Phone Alo Carey Primary Care Provider [phone] Encounter Details Date Type Department Care Team (Late st Contact Info) Description 07/05/2021 8:30 AM EDT Procedure visit Radiation Oncology at [address] [phone] Bigg Peters MD [address] [place] [address] [place] [address] Malignant neoplasm of prostate Social [...] will receive separate instructions specifically from the [facility] concerning your exact arrival time and what you need to do to prepare for this. Date: 07/11 around 1:00 Your planning session (simulation) will be done at : [ x ] [facility] at the Radiation [...] reach us: [facility] [phone] For weekends and after hours: Call [facility] ask for the ribbon blockmaker radiation oncologis documented in this encounter Progress [...] He comes to clinic accompanied by a driver engineer. [ yes ] reviewed allergies. Allergies Allergen Reactions ??? Cyclobenzaprine Other (See Comments) Extreme moodiness ??? Other [Unclassified Drug] Other (See Comments) Had reaction to a dye used during vascular procedure at [facility] in [place]: shaking Has tolerated MRI and [...] were reviewed with him. He has the [facility] phone number and verbalized understanding to ask for the ribbon blockmaker radiation oncologist if he needs to call after clinic hours. [ n/a ] If applicable: He was reminded to not drive home due to Lorazepam. Crop Duster Helper: Sergio Sadler, brother (pt unable to drive [...] to undergo MRI of the prostate at [facility]. documented in this encounter Plan of Treatment Upcoming Encounters Date Type Department Care Team (Late st Contact Info) Description 04/09/2024 9:30 AM EST Office Visit Hematology/Oncology at [address] [phone] Cl Hess MD [facility] [place] [address] [address] HEMATOLOGY AND ONCOLOGY [place], [place] [address] 04/09/2024 10:00 AM EST Infusion Hematology Oncology at [address] [phone] 04/23/2024 9:30 AM EST Office Visit Hematology/Oncology at [address] [phone] Cl Hess MD [facility] [place] [address] [address] HEMATOLOGY AND ONCOLOGY [place], [place] [phone] 04/23/2024 10:00 AM EST Infusion Hematology Oncology at [address] [phone] 05/18/2024 4:30 PM EDT TH Visit (TeleHealth) [place] [address] Malachi Rothman MD [facility] [place] [address] 09/24/2024 9:00 AM EDT Office Visit Radiation Oncology at [address] [phone] Ping Moore PA [facility] DR HEMATOLOGY [place] [address] documented as of this encounter Visit Diagnoses Diagnosis Malignant neoplasm of prostate documented in this encounter Care Teams Mission Support Specialist Relationship Specialty Start Date End Date Alo Carey DO [address] [place] [address] [place] [phone] PCP - General Internal Medicine 08/31/20 07/03/23 documented as of this encounter
--- OUTSIDE RECORDS SUMMARY | 2024-03-26 10:41 | XMS_ITS | Encounter Summary ---
[place] [address] Care Team Providers Care Pelletizer Name Role Phone Alo Carey Primary Care Provider [phone] Encounter Details Date Type Department Care Team (Late st Contact Info) Description 03/31/2021 Telephone Radiation Oncology at [address] [phone] Juli Tripathi RN Social History [...] PM EST Radiation Oncology Nurse Telephone Note [facility] [place], [place] ----- Message from Madalyn Stout sent at 03/31/2021 12:23 PM EST ----- Regarding: Meication GIven Elagard was given 22.5MGs Yesterday. Does Lorraine want urology to continue the injections or what is the plan for him. Margarita called to let us know today from [facility] about him getting the injection. But she want to know what our plan is for him going forward. Can we call with a plan [phone] and ask for Margarita. Thanks Tiana~ Call [...] administration of this medication to our number: [phone]. Dr Peters informed of this via this note. documented in this encounter Plan of Treatment Upcoming Encounters Date Type Department Care Team (Late st Contact Info) Description 04/09/2024 9:30 AM EST Office Visit Hematology/Oncology at [address] [phone] Cl Hess MD [facility] [place] [address] Yessi Renee APRN [address] [place] [address] [place] [address] 04/09/2024 10:00 AM EST Infusion Hematology Oncology at [address] [phone] 04/23/2024 9:30 AM EST Office Visit Hematology/Oncology at [address] [phone] Cl Hess MD [facility] [place] [address] Yessi Renee APRN [address] [place] [address] DR HEMATOLOGY AND ONCOLOGY [place], [place] [address] 04/23/2024 10:00 AM EST Infusion Hematology Oncology at [address] [phone] 05/18/2024 4:30 PM EDT TH Visit (TeleHealth) [place] [address] Malachi Rothman MD [facility] [place] [address] 09/24/2024 9:00 AM EDT Office Visit Radiation Oncology at [address] [phone] Ping Moore PA [facility] DR [place] [address] documented as of this encounter Visit Diagnoses Not on filedocumented in this encounter Care Teams Pelletizer Relationship Specialty Start Date End Date Alo Carey DO [address] [place] [address] [place] [address] PCP - General Internal Medicine 08/31/20 07/03/23 documented as of this encounter
--- OUTSIDE RECORDS SUMMARY | 2024-03-26 10:41 | XMS_ITS | Encounter Summary ---
[place] [address] Care Team Providers Care Business Relations Manager Name Role Phone Alo Carey Primary Care Provider [phone] Encounter Details Date Type Department Care Team (Late st Contact Info) Description 02/28/2021 Telephone [place] [phone] Mary Anne Barron Social History Tobacco Use Types Packs/Day Years Used Date Smoking Tobacco: Never Assessed Sex and Gender Information Value Date Recorded Sex Assigned at Not on file Gender Identity Not on file Sexual Orientation Not on file documented as of this encounter Miscellaneous Notes * Telephone Encounter - Mary Anne Barron - 02/28/2021 9:53 AM EST [facility] called and wanted to confirm [...] AM EST Office Visit Hematology/Oncology at [address] [phone] Cl Hess MD [facility] [place] [address] [address] HEMATOLOGY AND ONCOLOGY [place], [place] [address] 04/09/2024 10:00 AM EST Infusion Hematology Oncology at [address] [phone] 04/23/2024 9:30 AM EST Office Visit Hematology/Oncology at [address] [phone] Cl Hess MD [facility] [place] [address] [address] [place] [address] 04/23/2024 10:00 AM EST Infusion Hematology Oncology at [address] [phone] 05/18/2024 4:30 PM EDT TH Visit (TeleHealth) [place] [address] Malacih Rothman MD [facility] [address] 09/24/2024 9:00 AM EDT Office Visit Radiation Oncology at [address] [phone] Ping Moore PA [facility] [place] [address] documented as of this encounter Visit Diagnoses Not on filedocumented in this encounter Care Teams Business Relations Manager Relationship Specialty Start Date End Date Alo Carey DO [address] [place] [address] [place] [phone] PCP - General Internal Medicine 08/31/20 07/03/23 documented as of this encounter
--- OUTSIDE RECORDS SUMMARY | 2024-03-26 10:41 | XMS_ITS | Encounter Summary ---
[place] [address] Care Team Providers Care Experimental Mechanic Name Role Phone YungAlo santiago Primary Care Provider [phone] Encounter Details Date Type Department Care Team (Late st Contact Info) Description 02/22/2021 [place] [phone] Shelly Burrell PA [facility] [place] [address] Social History Tobacco Use Types Packs/Day Years [...] AM EST Office Visit Hematology/Oncology at [address] [phone] Cl Hess MD [facility] [place] [address] HEMATOLOGY AND ONCOLOGY [place], [place] [address] 04/09/2024 10:00 AM EST Infusion Hematology Oncology at [address] [phone] 04/23/2024 9:30 AM EST Office Visit Hematology/Oncology at [address] [phone] Cl Hess MD [facility] [place] [address] [address] HEMATOLOGY AND ONCOLOGY [place], [place] [address] 04/23/2024 10:00 AM EST Infusion Hematology Oncology at [address] [phone] 05/18/2024 4:30 PM EDT TH Visit (TeleHealth) [place] [address] Malachi Rothman MD [facility] [place] [address] 09/24/2024 9:00 AM EDT Office Visit Radiation Oncology at [address] [phone] Ping Moore PA [facility] HEMATOLOGY [place] [address] documented as of this encounter Visit Diagnoses Not on filedocumented in this encounter Care Teams Experimental Mechanic Relationship Specialty Start Date End Date Alo Carey DO [address] [place] [address] [place] [address] PCP - General Internal Medicine 08/31/20 07/03/23 documented as of this encounter
--- OUTSIDE RECORDS SUMMARY | 2024-03-26 10:41 | XMS_ITS | Encounter Summary ---
[place] [address] Care Team Providers Care Pals Nurse Name Role Phone YungAlo santiago Primary Care Provider [phone] Encounter Details Date Type Department Care Team (Late st Contact Info) Description 03/29/2021 Telephone Hematology Oncology at [address] [phone] Leida Watters RN Social History [...] PM EST Patient scheduled for Lupron at [email or web address] tomorrow 1/27. Review of chart suggests that he is receivingthese at Dr. Myers's office. Telephone call to patient to clarify. He reports that he is receiving Lupron at Dr. Myers's office, is scheduled to get one tomorrow at 8 AM there. States that he is getting a 3 month (22.5mg) dose tomorrow. Will cancel future infusion appts for Lupron at [facility]. documented in this encounter Plan of Treatment Upcoming Encounters Date Type Department Care Team (Late st Contact Info) Description 04/09/2024 9:30 AM EST Office Visit Hematology/Oncology at [address] [phone] Cl Hess MD [facility] [place] [address] Y[address] Renee [address] [place] [address] 04/09/2024 10:00 AM EST Infusion Hematology Oncology at [address] [phone] 04/23/2024 9:30 AM EST Office Visit Hematology/Oncology at [address] [phone] Cl Hess MD [facility] [place] [address] Y[address]enee [address] [place] [address] 04/23/2024 10:00 AM EST Infusion Hematology Oncology at [address] [phone] 05/18/2024 4:30 PM EDT TH Visit (TeleHealth) [place] [address] Malachi Rothman MD [facility] [place] [address] 09/24/2024 9:00 AM EDT Office Visit Radiation Oncology at [address] [phone] Ping Moore PA [facility] [place] [address] documented as of this encounter Visit Diagnoses Not on filedocumented in this encounter Care Teams Pals Nurse Relationship Specialty Start Date End Date Alo Carey DO [address] [place] [address] [place] [address] PCP - General Internal Medicine 08/31/20 07/03/23 documented as of this encounter
--- OUTSIDE RECORDS SUMMARY | 2024-03-26 10:41 | XMS_ITS | Encounter Summary ---
Author Organization [facility] [place] [address] Care Team Providers Care Warp Changer Name Role Phone Alo Carey DO Primary Care Provider [phone] Encounter Details Date Type Department Care Team (Latest Contact Info) Description 03/22/2021 2:00 PM EST TH Visit (TeleHealth) [place] [address] Cayetano Engle MD [facility] [place] [address] Benign prostatic hyperplasia, unspecified whether lower urinary [...] Engle MD - 03/22/2021 2:00 PM EST [facility] SECTION OF UROLOGY POSTOPERATIVE TELEPHONE VISIT Called [...] Postop Patient seen with clot retention at [facility] and required cysto clot evacuation with Dr. [...] Section of Urology [facility] Office: [phone] I spent 15 minutes reviewing the patient's diagnostic tests, speaking with the patient, and documenting in the record. documented in this encounter Plan of Treatment Upcoming Encounters Date Type Department Care Team (Late st Contact Info) Description 04/09/2024 9:30 AM EST Office Visit Hematology/Oncology at [address] [phone] Cl Hess MD [facility] [place] [address] [address] HEMATOLOGY AND ONCOLOGY [place], [place] [address] 04/09/2024 10:00 AM EST Infusion Hematology Oncology at [address] [phone] 04/23/2024 9:30 AM EST Office Visit Hematology/Oncology at [address] [phone] Cl Hess MD [facility] [place] [address] [address] [place] [address] 04/23/2024 10:00 AM EST Infusion Hematology Oncology at [address] [phone] 05/18/2024 4:30 PM EDT TH Visit (TeleHealth) [place] [address] Malachi Rothman MD [facility] [place] [address] 09/24/2024 9:00 AM EDT Office Visit Radiation Oncology at [address] [phone] Ping Moore PA [facility] [place] [address] documented as of this encounter Visit Diagnoses Diagnosis Benign prostatic hyperplasia, unspecified whether lower urinary tract symptoms present documented in this encounter Care Teams Warp Changer Relationship Specialty Start Date End Date Alo Carey DO [address] [place] [address] [place] [address] PCP - General Internal Medicine 08/31/20 07/03/23 documented as of this encounter
--- OUTSIDE RECORDS SUMMARY | 2024-03-26 10:41 | XMS_ITS | Encounter Summary ---
[place] [address] Care Team Providers Care Office Helper Name Role Phone YungAlo santiago Primary Care Provider [phone] Reason for Visit * Reason Onset Date Comments Reminder Appointment 04/04/2021 Encounter Details Date Type Department Care Team (Late st Contact Info) Description 04/04/2021 Telephone [place] [phone] Renetta Stallworth CCMA Reminder Appointment Social History [...] Miscellaneous Notes * Telephone Encounter - Renetta Stallwotrh CCMA - 04/04/2021 9:13 AM EST Called [...] AM EST Office Visit Hematology/Oncology at [address] [phone] Cl Hess MD [facility] [place] [address] [address] HEMATOLOGY [place] [address] 04/09/2024 10:00 AM EST Infusion Hematology Oncology at [address] [phone] 04/23/2024 9:30 AM EST Office Visit Hematology/Oncology at [address] [phone] Cl Hess MD [facility] [place] [address] [address] HEMATOLOGY [place] [address] 04/23/2024 10:00 AM EST Infusion Hematology Oncology at [address] [phone] 05/18/2024 4:30 PM EDT TH Visit (TeleHealth) [place] [address] Malachi Rothman MD [facility] [place] [address] 09/24/2024 9:00 AM EDT Office Visit Radiation Oncology at [address] [phone] Ping Moore PA [facility] HEMATOLOGY [place] [address] documented as of this encounter Visit Diagnoses Not on filedocumented in this encounter Care Teams Office Helper Relationship Specialty Start Date End Date Alo Carey DO [address] [place] [address] [place] [address] PCP - General Internal Medicine 08/31/20 07/03/23 documented as of this encounter
--- OUTSIDE RECORDS SUMMARY | 2024-03-26 10:41 | XMS_ITS | Encounter Summary ---
Author Organization [facility] [place] [address] Care Team Providers Care Public Relations Coordinator Name Role Phone Alo Carey DO Primary Care Provider Reason for Visit * Consultation (Urgent) - Closed Specialty Diagnoses / Procedures Referred By Marques livingston Referred To Contact Vascular Surgery Diagnoses Carotid artery stenosis, symptomatic, right Pedro Mai MD [facility] [place] [address] [facility] Surg [address] [place] [address] Referral ID Status Reason Start Date Expiration Date V isits Requested Visits Authorized [id number] Closed Consult, Test & Treat 05/05/2021 05/05/2022 1 1 Encounter Details Date Type Department Care Team (Late st Contact Info) Description 05/23/2021 2:00 PM EDT Office [place] [address] Basim Barr MD [facility] DR [place] [address] Stenosis of carotid artery, unspecified laterality Social [...] ICA stenosis following CEA. Outside CTA from [facility] reviewed and shows a high grade right ICA stenosis and a moderate right petrous and cavernous stenoses. His last ischemic event was 11/2019 when he had ocular event. Note from Vascular surgeon in [place] who did his R CEA I believe [...] at [facility] Vascular in [place]: shaking Has [...] AM EST Office Visit Hematology/Oncology at [address] [phone] Cl Hess MD [facility] [place] [address] HEMATOLOGY [place] [address] 04/09/2024 10:00 AM EST Infusion Hematology Oncology at [address] [phone] 04/23/2024 9:30 AM EST Office Visit Hematology/Oncology at [address] [phone] Cl Hess MD [facility] [place] [address] [address] HEMATOLOGY [place] [address] 04/23/2024 10:00 AM EST Infusion Hematology Oncology at [address] [address] 05/18/2024 4:30 PM EDT TH Visit (TeleHealth) [place] [address] Malachi Rothman MD [facility] [place] [address] 09/24/2024 9:00 AM EDT Office Visit Radiation Oncology at [address] [phone] Ping Moore PA [facility] DR [place] [address] Scheduled Referrals Name Type Priority Associated Diagnoses Orde r Schedule Referral to Vascular Surgery Outpatient Referral Routine Carotid artery stenosis, symptomatic, right Ordered: 05/05/2021 documented as of this encounter Visit Diagnoses Diagnosis Stenosis of carotid artery, unspecified laterality documented in this encounter Care Teams Public Relations Coordinator Relationship Specialty Start Date End Date Alo Carey DO [address] [place] [address] [place] [address] PCP - General Internal Medicine 08/31/20 07/03/23 documented as of this encounter
--- OUTSIDE RECORDS SUMMARY | 2024-03-26 10:41 | XMS_ITS | Encounter Summary ---
[place] [address] Care Team Providers Care Ski Tow Operator Name Role Phone Alo Carey DO Primary Care Provider [phone] Reason for Referral * Consultation (Routine) - Closed Specialty Diagnoses / Procedures Referred By Mraques livingston Referred To Contact Radiation Oncology Diagnoses Malignant neoplasm of prostate Procedures Simulation for Radiation Therapy Planning Bigg Peters MD [address] [place] [address] [place] [address] [facility] [place] [address] Referral ID Status Reason Start Date Expiration Date V isits Requested Visits Authorized [id number] Closed Consult, Test & Treat 07/11/2021 09/30/2021 29 29 Encounter Details Date Type Department Care Team (Late st Contact Info) Description 04/04/2021 Orders Only Radiation Oncology at [address] [phone] Bigg Peters MD [address] [place] [address] DR RADIATION ONCOLOGY [place], [place] [id number] Malignant neoplasm of prostate Social History Tobacco [...] AM EST Office Visit Hematology/Oncology at [address] [phone] Cl Hess MD [facility] [place] [address] [address] HEMATOLOGY AND ONCOLOGY [place], [place] [phone] 04/09/2024 10:00 AM EST Infusion Hematology Oncology at [address] [phone] 04/23/2024 9:30 AM EST Office Visit Hematology/Oncology at [address] [phone] Cl Hess MD [facility] [place] [address] Y[address] Renee [address] HEMATOLOGY AND ONCOLOGY [place], [place] [address] 04/23/2024 10:00 AM EST Infusion Hematology Oncology at [address] [phone] 05/18/2024 4:30 PM EDT TH Visit (TeleHealth) [place] [address] Malachi Rothman MD [facility] [place] [address] 09/24/2024 9:00 AM EDT Office Visit Radiation Oncology at [address] [phone] iPng Moore PA [facility] DR [place] [address] Scheduled Orders Name Type Priority Associated Diagnoses Orde r Schedule Simulation for Radiation Therapy Planning Procedures Routine Malignant neoplasm of prostate Ordered: 04/04/2021 documented as of this encounter Visit Diagnoses Diagnosis Malignant neoplasm of prostate documented in this encounter Care Teams Ski Tow Operator Relationship Specialty Start Date End Date Alo Carey DO [address] [place] [address] [place] [address] PCP - General Internal Medicine 08/31/20 07/03/23 documented as of this encounter
--- OUTSIDE RECORDS SUMMARY | 2024-03-26 10:41 | XMS_ITS | Encounter Summary ---
[place] [address] Care Team Providers Care Production Superintendent Name Role Phone CherryAlo Primary Care Provider [phone] Encounter Details Date Type Department Care Team (Late st Contact Info) Description 03/02/2021 [place] [phone] Mila Sheffield LNA Social History Tobacco Use [...] AM EST Office Visit Hematology/Oncology at [address] [phone] Cl Hess MD [facility] [place] [address] [address] HEMATOLOGY AND ONCOLOGY [place], [place] [address] 04/09/2024 10:00 AM EST Infusion Hematology Oncology at [address] [phone] 04/23/2024 9:30 AM EST Office Visit Hematology/Oncology at [address] [phone] Cl Hess MD [facility] [place] [address] [address] HEMATOLOGY AND ONCOLOGY [place], [place] [address] 04/23/2024 10:00 AM EST Infusion Hematology Oncology at [address] [phone] 05/18/2024 4:30 PM EDT TH Visit (TeleHealth) [place] [address] Malachi Rothman MD [facility] [place] [address] 09/24/2024 9:00 AM EDT Office Visit Radiation Oncology at [address] [phone] Ping Moore PA [facility] DR [place] [address] documented as of this encounter Visit Diagnoses Not on filedocumented in this encounter Care Teams Production Superintendent Relationship Specialty Start Date End Date Alo Carey DO [address] [place] [address] [place] [phone] PCP - General Internal Medicine 08/31/20 07/03/23 documented as of this encounter
--- OUTSIDE RECORDS SUMMARY | 2024-03-26 10:41 | XMS_ITS | Encounter Summary ---
[place] [address] Care Team Providers Care Paper Goods Machine Operator Name Role Phone YungAlo santiago Primary Care Provider [phone] Reason for Visit * Reason Onset Date Comments Request For Record 03/09/2021 Encounter Details Date Type Department Care Team (Late st Contact Info) Description 03/09/2021 Telephone [place] [phone] Kushal Aceves MD [facility] [place] [address] Request For Record Social History Tobacco Use [...] Miscellaneous Notes * Telephone Encounter - Bela Fraesr - 03/10/2021 10:38 AM EST Patient states that he will contact [facility] and request that they send us his imaging for his upcoming appointment. documented in this encounter Plan of Treatment Upcoming Encounters Date Type Department Care Team (Late st Contact Info) Description 04/09/2024 9:30 AM EST Office Visit Hematology/Oncology at [address] [phone] [facility] [place] [address] [address] [place] [address] 04/09/2024 10:00 AM EST Infusion Hematology Oncology at [address] [phone] 04/23/2024 9:30 AM EST Office Visit Hematology/Oncology at [address] [phone] [facility] [place] [address] [address] [place] [address] 04/23/2024 10:00 AM EST Infusion Hematology Oncology at [address] [phone] 05/18/2024 4:30 PM EDT TH Visit (TeleHealth) [place] [address] [facility] [place] [address] 09/24/2024 9:00 AM EDT Office Visit Radiation Oncology at [address] [phone] [facility] [place] [address] documented as of this encounter Visit Diagnoses Not on filedocumented in this encounter Care Teams Paper Goods Machine Operator Relationship Specialty Start Date End Date Alo Carey DO [address] [place] [address] [place] [phone] PCP - General Internal Medicine 08/31/20 07/03/23 documented as of this encounter
--- OUTSIDE RECORDS SUMMARY | 2024-03-26 10:41 | XMS_ITS | Encounter Summary ---
[place] [address] Care Team Providers Care Community Resource Officer Name Role Phone YungAlo santiago Primary Care Provider [phone] Encounter Details Date Type Department Care Team (Late st Contact Info) Description 05/05/2021 Notes [place] [phone] Olena Perez Social History Tobacco Use Types [...] knee Replacement: Balancing Safety and Effectiveness. Principle Hand Potter: Dr. Phan Mohr #: [id number] Subject #: [id number] Subject has been randomized to arm C for the above named clinical trial. Arm C (Rivaroxaban) orders to be placed while in-patient. Patient must use [facility] pharmacy to get $75 cap borrero. Note submitted by Olena Perez, Clinical Research Coordinator. documented in this encounter Plan of Treatment Upcoming Encounters Date Type Department Care Team (Late st Contact Info) Description 04/09/2024 9:30 AM EST Office Visit Hematology/Oncology at [address] [phone] Cl Hess MD [facility] [place] [address] [address] HEMATOLOGY AND ONCOLOGY [place] [address] 04/09/2024 10:00 AM EST Infusion Hematology Oncology at [address] [phone] 04/23/2024 9:30 AM EST Office Visit Hematology/Oncology at [address] [phone] Cl Hess MD [facility] [place] [address] [address] HEMATOLOGY [place] [address] 04/23/2024 10:00 AM EST Infusion Hematology Oncology at [address] [phone] 05/18/2024 4:30 PM EDT TH Visit (TeleHealth) [place] [address] Malachi Rothman MD [facility] [place] [address] 09/24/2024 9:00 AM EDT Office Visit Radiation Oncology at [address] [phone] Ping Moore PA [facility] [place] [address] documented as of this encounter Visit Diagnoses Not on filedocumented in this encounter Care Teams Community Resource Officer Relationship Specialty Start Date End Date Alo Carey DO [address] [place] [address] [place] [phone] PCP - General Internal Medicine 08/31/20 07/03/23 documented as of this encounter
--- OUTSIDE RECORDS SUMMARY | 2024-03-26 10:41 | XMS_ITS | Encounter Summary ---
Author Organization [facility] [place] [address] Care Team Providers Care Property Condition Assessor Name Role Phone Alo Carey DO Primary Care Provider [phone] Reason for Referral * Diagnostic Test (Routine) - Closed Specialty Diagnoses / Procedures Referred By Marques livingston Referred To Contact Diagnoses Stenosis of carotid artery, unspecified laterality Procedures Carotid Duplex, Bilateral Jasiel Luna APRN [facility] [place] [address] [facility] Vascular Lab [address] [place] [address] Referral ID Status Reason Start Date Expiration Date V isits Requested Visits Authorized [id number] Closed Specialty Service Requested 05/05/2021 05/05/2022 1 1 Encounter Details Date Type Department Care Team (Late st Contact Info) Description 05/05/2021 Orders Only [place] [address] Jasiel Luna APRN Stenosis of [...] AM EST Office Visit Hematology/Oncology at [address] [phone] Cl Hess MD [facility] [place] [address] [address] HEMATOLOGY AND ONCOLOGY [place], [place] [address] 04/09/2024 10:00 AM EST Infusion Hematology Oncology at [address] [phone] 04/23/2024 9:30 AM EST Office Visit Hematology/Oncology at [address] [phone] Cl Hess MD [facility] [place] [address] Yessi Renee, [address] HEMATOLOGY [place] [address] 04/23/2024 10:00 AM EST Infusion Hematology Oncology at [address] [phone] 05/18/2024 4:30 PM EDT TH Visit (TeleHealth) [place]iation [place] [address] Malachi Rothman MD [facility] [place] [place] [address] 09/24/2024 9:00 AM EDT Office Visit Radiation Oncology at [address] [phone] Ping Moore PA [facility] [place] [address] documented as of this encounter Results * Carotid Duplex, Bilateral (05/23/2021 12:58 PM EDT) VB Text Report Department: Vascular Surgery Lab Patient: [id number] (THA SADLER) CPT: 45679 Referring Physician: JASIEL LUNA, EXPLOSIVE TECHNICIAN ?? Indications: History of Carotid stenosis, eye [...] 05/23/2021 12:5 8 PM EDT Jasiel Luna EXPLOSIVE TECHNICIAN VASCULAR ORDERABLE S [facility]AS[facility] documented in this encounter Visit Diagnoses Diagnosis Stenosis of carotid artery, unspecified laterality documented in this encounter Care Teams Property Condition Assessor Relationship Specialty Start Date End Date Alo Carey DO [address] [place] [address] [place] [phone] PCP - General Internal Medicine 08/31/20 07/03/23 documented as of this encounter
--- OUTSIDE RECORDS SUMMARY | 2024-03-26 10:41 | XMS_ITS | Encounter Summary ---
[place] [address] Care Team Providers Care Supervisor Engine Repair Name Role Phone YungAlo santiago Primary Care Provider [phone] Encounter Details Date Type Department Care Team (Late st Contact Info) Description 04/28/2021 Telephone Primary Care at [facility] [address] [place] [address] Jacquelyn Hines RN Social History [...] to DH MD's referred to [place] at [facility] [place] and orders needed to complete the task. documented in this encounter Plan of Treatment Upcoming Encounters Date Type Department Care Team (Late st Contact Info) Description 04/09/2024 9:30 AM EST Office Visit Hematology/Oncology at [address] [phone] Cl Hess MD [facility] [place] [address] [address] HEMATOLOGY AND ONCOLOGY [place], [place] [address] 04/09/2024 10:00 AM EST Infusion Hematology Oncology at [address] [phone] 04/23/2024 9:30 AM EST Office Visit Hematology/Oncology at [address] [phone] Cl Hess MD [facility] [place] [address] [address] [place] [address] 04/23/2024 10:00 AM EST Infusion Hematology Oncology at [address] [phone] 05/18/2024 4:30 PM EDT TH Visit (TeleHealth) [place] [address] Malachi Rothman MD [facility] [place] [address] 09/24/2024 9:00 AM EDT Office Visit Radiation Oncology at [address] [phone] Ping Moore PA [facility] HEMATOLOG[place] [address] documented as of this encounter Visit Diagnoses Not on filedocumented in this encounter Care Teams Supervisor Engine Repair Relationship Specialty Start Date End Date Alo Carey DO [address] [place] [address] [place] [address] PCP - General Internal Medicine 08/31/20 07/03/23 documented as of this encounter
--- OUTSIDE RECORDS SUMMARY | 2024-03-26 10:41 | XMS_ITS | Encounter Summary ---
Author Organization [facility] [place] [address] Care Team Providers Care Radio Director Name Role Phone Alo Carey DO Primary Care Provider [phone] Encounter Details Date Type Department Care Team (Late st Contact Info) Description 05/02/2021 7:40 PM EST Ancillary Procedure Radiology Library at [facility] [place] [address] Kushal Aceves MD [facility] [place] [address] Social History Tobacco Use Types Packs/Day Years Used Date Smoking Tobacco: Former Cigarettes 4 3 - 1992 Smokeless Tobacco: Never Alcohol [...] AM EST Office Visit Hematology/Oncology at [address] [phone] Cl Hess MD [facility] [place] [address] [address] HEMATOLOGY AND ONCOLOGY [place], [place] [phone] 04/09/2024 10:00 AM EST Infusion Hematology Oncology at [address] [phone] 04/23/2024 9:30 AM EST Office Visit Hematology/Oncology at [address] [phone] Cl Hess MD [facility] [place] [address] Yessi Renee, [address] HEMATOLOGY AND ONCOLOGY [place], [place] [address] 04/23/2024 10:00 AM EST Infusion Hematology Oncology at [address] [phone] 05/18/2024 4:30 PM EDT TH Visit (TeleHealth) [place] [address] Malachi Rothman MD [facility] [place] [address] 09/24/2024 9:00 AM EDT Office Visit Radiation Oncology at [address] [phone] Ping Moore PA [facility] HEMATOLOGY [place] [address] documented as of this encounter Procedures Procedure Name Priority Date/Time Associated Diagnosis Comments FILM LIBRARY STORAGE ONLY CT HEAD AND SPINE Routine 05/02/2021 7:36 PM EST documented in this encounter Results * Film Library- Storage Only CT Head And Spine (05/02/2021 7:36 PM EST) Narrative VJ FALL - 05/02/2021 7:36 PM EST This exam is auto-finalizing. It's purpose is for storage only. Kushal Aceves MD IMG FILM LIBRARY O RDERABLES [place], [place] documented in this encounter Visit Diagnoses Not on filedocumented in this encounter Care Teams Radio Director Relationship Specialty Start Date End Date Alo Carey DO [address] [place] [address] [place] [phone] PCP - General Internal Medicine 08/31/20 07/03/23 documented as of this encounter
--- OUTSIDE RECORDS SUMMARY | 2024-03-26 10:41 | XMS_ITS | Encounter Summary ---
Author Organization [facility] [place] [address] Care Team Providers Care Observer Gravity Prospecting Name Role Phone YungAlo santiago Primary Care Provider [phone] Encounter Details Date Type Department Care Team (Late st Contact Info) Description 03/29/2021 Telephone [place] [address] Kushal Aceves MD [facility] [place] [address] Social History Tobacco Use Types Packs/Day Years [...] test from our office. Patient advised that [facility] send a message to the nurse. * Telephone Encounter - Bela Fraser - 03/29/2021 2:39 PM EST Call placed to patient to see if he would like to have CT Head and Neck performed at [facility]. Patient advises that he would like this performed at [facility]. Note to provider and RN to enter orders. documented in this encounter Plan of Treatment Upcoming Encounters Date Type Department Care Team (Late st Contact Info) Description 04/09/2024 9:30 AM EST Office Visit Hematology/Oncology at [address] [phone] Cl Hess MD [facility] [place] [address] [address] HEMATOLOGY AND ONCOLOGY [place], [place] [phone] 04/09/2024 10:00 AM EST Infusion Hematology Oncology at [address] [phone] 04/23/2024 9:30 AM EST Office Visit Hematology/Oncology at [address] [phone] Cl Hess MD [facility] [place] [address] [address] HEMATOLOGY AND ONCOLOGY [place], [place] [phone] 04/23/2024 10:00 AM EST Infusion Hematology Oncology at [address] [phone] 05/18/2024 4:30 PM EDT TH Visit (TeleHealth) [place] [address] Malachi Rothman MD [facility] [place] [address] 09/24/2024 9:00 AM EDT Office Visit Radiation Oncology at [address] [phone] Ping Moore PA [facility] DR [place]EMAT[place] [address] documented as of this encounter Visit Diagnoses Diagnosis Stenosis of carotid artery, unspecified laterality Pre-procedure lab exam Pre-procedural laboratory examination documented in this encounter Care Teams Observer Gravity Prospecting Relationship Specialty Start Date End Date Alo Carey DO [address] [place] [address] [place] [address] PCP - General Internal Medicine 08/31/20 07/03/23 documented as of this encounter
--- OUTSIDE RECORDS SUMMARY | 2024-03-26 10:41 | XMS_ITS | Encounter Summary ---
Author Organization [facility] [place] [address] Care Team Providers Care Field Service Consultant Name Role Phone Alo Carey DO Primary Care Provider [phone] Encounter Details Date Type Department Care Team [...] AM EST Office Visit Hematology/Oncology at [address] [phone] Cl Hess MD [facility] [place] [address] Yessi Renee, [address] HEMATOLOGY AND ONCOLOGY [place], [place] [phone] 04/09/2024 10:00 AM EST Infusion Hematology Oncology at [address] [phone] 04/23/2024 9:30 AM EST Office Visit Hematology/Oncology at [address] [phone] Cl Hess MD [facility] [place] [address] [address] HEMATOLOGY AND ONCOLOGY [place], [place] [phone] 04/23/2024 10:00 AM EST Infusion Hematology Oncology at [address] [phone] 05/18/2024 4:30 PM EDT TH Visit (TeleHealth) [place] [address] Malachi Rothman MD [facility] DR [place] [address] 09/24/2024 9:00 AM EDT Office Visit Radiation Oncology at [address] [phone] Ping Moore PA [facility] DR HEMATOLOGY [place] [address] documented as of this encounter Visit Diagnoses Not on filedocumented in this encounter Care Teams Field Service Consultant Relationship Specialty Start Date End Date Alo Carey DO [address] [place] [address] [place] [phone] PCP - General Internal Medicine 6/30/21 5/1/24 documented as of this encounter
--- OUTSIDE RECORDS SUMMARY | 2024-03-26 10:41 | XMS_ITS | Encounter Summary ---
Author Organization [facility] [place] [address] Care Team Providers Care Slab Tripper Name Role Phone Alo Carey DO Primary Care Provider [phone] Reason for Referral * Consultation (Urgent) - Closed Specialty Diagnoses / Procedures Referred By Marques livingston Referred To Contact Vascular Surgery Diagnoses Carotid artery stenosis, symptomatic, right Pedro Mai MD [facility] [place] [address] [facility] [address] [place] [address] Referral ID Status Reason Start Date Expiration Date V isits Requested Visits Authorized [id number] Closed Consult, Test & Treat 05/05/2021 05/05/2022 1 1 Encounter Details Date Type Department Care Team (Late st Contact Info) Description 05/05/2021 Orders [place] [address] Pedro Mai MD [facility] [place] [address] Carotid artery stenosis, symptomatic, right Social History [...] AM EST Office Visit Hematology/Oncology at [address] [phone] Cl Hess MD [facility] [place] [address] [address] HEMATOLOGY AND ONCOLOGY [place], [place] [phone] 04/09/2024 10:00 AM EST Infusion Hematology Oncology at [address] [phone] 04/23/2024 9:30 AM EST Office Visit Hematology/Oncology at [address] [phone] Cl Hess MD [facility] [place] [address] [address] HEMATOLOGY AND ONCOLOGY [place], [place] [address] 04/23/2024 10:00 AM EST Infusion Hematology Oncology at [address] [phone] 05/18/2024 4:30 PM EDT TH Visit (TeleHealth) [place] [address] Malachi Rothman MD [facility] [place] [address] 09/24/2024 9:00 AM EDT Office Visit Radiation Oncology at [address] [phone] Ping Moore PA [facility] DR [place]AT[place] [address] Scheduled Referrals Name Type Priority Associated Diagnoses Orde r Schedule Referral to Vascular Surgery Outpatient Referral Routine Carotid artery stenosis, symptomatic, right Ordered: 05/05/2021 documented as of this encounter Visit Diagnoses Diagnosis Carotid artery stenosis, symptomatic, right documented in this encounter Care Teams Slab Tripper Relationship Specialty Start Date End Date Alo Carey DO [address] [place] [address] [place] [address] PCP - General Internal Medicine 08/31/20 07/03/23 documented as of this encounter
--- OUTSIDE RECORDS SUMMARY | 2024-03-26 10:41 | XMS_ITS | Encounter Summary ---
[place] [address] Care Team Providers Care Ski Patrol Director Name Role Phone YungAlo santiago Primary Care Provider [phone] Encounter Details Date Type Department Care Team (Latest Contact Info) Description 05/04/2021 11:00 AM EST Clinical [place] [phone] Primary osteoarthritis of right hip; Right leg [...] AM EST Office Visit Hematology/Oncology at [address] [phone] Cl Hess MD [facility] [place] [address] [address] [place] [address] 04/09/2024 10:00 AM EST Infusion Hematology Oncology at [address] [phone] 04/23/2024 9:30 AM EST Office Visit Hematology/Oncology at [address] [phone] Cl Hess MD [facility] [place] [address] [address] [place] [address] 04/23/2024 10:00 AM EST Infusion Hematology Oncology at [address] [phone] 05/18/2024 4:30 PM EDT TH Visit (TeleHealth) [place] [address] Malachi Rothman MD [facility] [place] [address] 09/24/2024 9:00 AM EDT Office Visit Radiation Oncology at [address] [phone] Ping Moore PA [facility] DR HEMATOLOGY [place] [address] documented as of this encounter Procedures Procedure [...] 11:34 AM EST) T&S only valid at [facility] LABORATORY Comment:This Type and Screen result is only valid at the [facility] Blood 05/04/2021 11:3 4 AM EST 05/04/2021 11:34 AM EST Narrative Resulting Agency Comment Spec In Lab Ismael Wu MD [facility] Performing Organization Address City/[facility]/ZIP Co de Phone Number [facility] [place] [address] * ABORH Recheck Status (05/04/2021 11:34 AM EST) [facility] ABORH Type Recheck Completed [facility] Blood 05/04/2021 11:3 4 AM EST 05/04/2021 11:34 AM EST Narrative Resulting Agency Comment Spec In Lab Ismael Wu MD [facility] Performing Organization Address City/[facility]/ZIP Co de Phone Number [facility] [place] [address] * Antibody screen (05/04/2021 11:34 AM EST) Ab Screen Interp Negative [facility] Expires at [id number] on: 06/18/2021 [facility] Comment: Corrected from 05/28/21 0:00:00 EDT [Unknown] on 05/22/21 18:29:23 EDT by Irma Morales Blood 05/04/2021 11:3 4 AM EST 05/04/2021 11:34 AM EST Narrative Resulting Agency Comment Spec In Lab Ismael Wu MD [facility] [place] [address] * Differential, Automated (05/04/2021 11:34 AM EST) Neutrophil % 56.0 % [facility] Neutrophil Absolute 3.78 1.70 - 6.10 x10(3)/[facility] LABORATORY Lymph % 30.6 % [facility] Lymphocytes Abs 2.1 0.9 - 3.2 x10(3)/[facility] LABORATORY Monocyte % 9.2 % [facility] Monocyte Abs 0.6 0.3 - 0.9 x10(3)/[facility] LABORATORY Eos % 3.3 % [facility] Eosinophils Abs 0.2 0.0 - 0.4 x10(3)/[facility] LABORATORY Basophil % 0.6 % [facility] Baso Absolute 0.0 0.0 - 0.1 x10(3)/[facility] LABORATORY Immature Gran % 0.30 % [facility] Comment: Immature granulocytes(IG's)percentage and absolute count will include metamyelocytes, myelocytes, and promyelocytes. Blood smears from CBCs yielding IG's will be scanned manually for concordance. If this scan disagrees with the automated IG or if promyelocytes are noted, a manual differential will be performed. Immature Gran Absolute 0.02 0.00 - 0.04 x10(3)/[facility] LABORATORY Blood 05/04/2021 11:3 4 AM EST 05/04/2021 11:46 AM EST Narrative Resulting Agency Comment Spec In Lab Ismael Wu MD HEMATOLOGY ORDERABL ES [facility] [place] [address] * ABO/Rh Typing (05/04/2021 11:34 AM EST) ABORH Type O Pos [facility] Blood 05/04/2021 11:3 4 AM EST 05/04/2021 11:34 AM EST Narrative Resulting Agency Comment Spec In Lab Ismael Wu MD BLOOD BANK LAB ORDE PROSPER Performing Organization Address City/[facility]/ZIP Co de Phone Number [facility] [place] [address] * (ABNORMAL) Hemogram (05/04/2021 11:34 AM EST) Pathologist [facility] White Blood Cell 6.7 4.0 - 9.5 x10(3)/mc L [facility] Red Blood Cell 4.33(L) 4.58 - 5.54 x10(6)/mc L [facility] Hemoglobin 13.5(L) 13.7 - 16.5 g/dL [facility] Hematocrit 41.2 40.5 - 48.5 % [facility] Mean Cell Volume 95.2(H) 82.9 - 93.1 fL [facility] Mean Cell Hemoglobin 31.2 27.5 - 32.1 pg [facility] Mean Cell Hemoglobin Concentration 32.8 32.0 - 35.7 g/dL [facility] Platelet 211 145 - 357 x10(3)/mc L [facility] RDW Standard Deviation 46.2(H) 36.0 - 45.0 [facility] LABORATORY RDW coefficient of variation 13.1 11.4 - 13.8 % [facility] Mean Platelet Volume 10.4 7.6 - 12.9 fL [facility] NRBC% auto 0.0 % [facility] NRBC Absolute 0.000 0.000 - 0.000 x10(3)/mc L [facility] Blood 05/04/2021 11:3 4 AM EST 05/04/2021 11:46 AM EST Narrative Resulting Agency Comment Spec In Lab Ismael Wu MD HEMATOLOGY ORDERABL ES [facility] [place] [address] * Basic Metabolic Panel (non-fasting) (05/04/2021 11:34 [...] MD CHEMISTRY ORDERABLE S Performing Organization Address [facility] Phone Number [facility] [place] [address] * Prothrombin Time (05/04/2021 11:34 AM EST) [...] MD HEMATOLOGY ORDERABL ES Performing Organization Address [facility] de Phone Number [facility] [place] [address] * APTT (05/04/2021 11:34 AM EST) Partial [...] MD HEMATOLOGY ORDERABL ES [facility] [place] [address] documented in this encounter Visit Diagnoses Diagnosis Primary osteoarthritis of right hip Primary localized osteoarthrosis, pelvic region and thigh Right leg pain Pain in limb documented in this encounter Care Teams Ski Patrol Director Relationship Specialty Start Date End Date Alo Carey DO [address] [place] [address] [place] [phone] PCP - General Internal Medicine 08/31/20 07/03/23 documented as of this encounter
--- OUTSIDE RECORDS SUMMARY | 2024-03-26 10:41 | XMS_ITS | Encounter Summary ---
[place] [address] Care Team Providers Care Passenger Vessel Chef Name Role Phone YungAlo santiago Primary Care Provider Encounter Details Date Type Department Care Team (Late st Contact Info) Description 02/23/2021 [place] [phone] Renea Morton MD [facility] [place] [address] Social History Tobacco Use Types Packs/Day Years [...] AM EST Office Visit Hematology/Oncology at [address] [phone] Cl Hess MD [facility] [place] [address] [address] HEMATOLOGY [place] [address] 04/09/2024 10:00 AM EST Infusion Hematology Oncology at [address] [phone] 04/23/2024 9:30 AM EST Office Visit Hematology/Oncology at [address] [phone] Cl Hess MD [facility] [place] [address] [address] HEMATOLOGY [place] [address] 04/23/2024 10:00 AM EST Infusion Hematology Oncology at [address] [phone] 05/18/2024 4:30 PM EDT TH Visit (TeleHealth) [place] [address] Malachi Rothman MD [facility] DR [place] [address] 09/24/2024 9:00 AM EDT Office Visit Radiation Oncology at [address] [phone] Ping Moore PA [facility] HEMATOLOGY [place] [address] documented as of this encounter Visit Diagnoses Not on filedocumented in this encounter Care Teams Passenger Vessel Chef Relationship Specialty Start Date End Date Alo Carey DO [address] [place] [address] [place] [address] PCP - General Internal Medicine 08/31/20 07/03/23 documented as of this encounter
--- OUTSIDE RECORDS SUMMARY | 2024-03-26 10:41 | XMS_ITS | Encounter Summary ---
[place] [address] Care Team Providers Care Wall Crane Operator Name Role Phone YungAlo santiago Primary Care Provider [phone] Encounter Details Date Type Department Care Team (Late st Contact Info) Description 05/04/2021 [place] [phone] Floridalma Simmons Social History Tobacco Use Types [...] test (Molecular, Antigen, Antibody orunknown): Resides in longterm, alf or other residential facility No Employee or Household Member of Employee No Healthcare Worker No Telephone call placed/received to schedule Covid 19 testing with patient. Ordering provider: Ismael Wu Testing Facility: [facility] Facility Date of Testin/21 Time of Testing:TBD Symptoms: Pre Op Please send order to listed facility. documented in this encounter Plan of Treatment Upcoming Encounters Date Type Department Care Team (Late st Contact Info) Description 04/09/2024 9:30 AM EST Office Visit Hematology/Oncology at [address] [phone] [address] [facility] [place] [address] [address] [place] [address] 04/09/2024 10:00 AM EST Infusion Hematology Oncology at [address] [phone] 04/23/2024 9:30 AM EST Office Visit Hematology/Oncology at [address] [phone] [facility] [place] [address] [address] [place] [address] 04/23/2024 10:00 AM EST Infusion Hematology Oncology at [address] [phone] 05/18/2024 4:30 PM EDT TH Visit (TeleHealth) [place] [address] [facility] [place] [address] 09/24/2024 9:00 AM EDT Office Visit Radiation Oncology at [address] [phone] [facility] DR [place] [address] documented as of this encounter Visit Diagnoses Diagnosis Encounter for screening laboratory testing for COVID-19 virus documented in this encounter Care Teams Wall Crane Operator Relationship Specialty Start Date End Date Alo Carey DO [address] [place] [address] [place] [phone] PCP - General Internal Medicine 08/31/20 07/03/23 documented as of this encounter
--- OUTSIDE RECORDS SUMMARY | 2024-03-26 10:41 | XMS_ITS | Encounter Summary ---
Author Organization [facility] Address [facility] [place] [address] Care Team Providers Care Integration Technician Name Role Phone YungAlo santiago Primary Care Provider [phone] Encounter Details Date Type Department Care Team (Latest Contact Info) Description 02/02/2021 7:43 AM EST - 02/03/2021 11:58 AM EST Hospital Encounter Med Surg Unit at [address] [phone] Cayetano Engle MD [facility] [place] [address] Discharge Disposition: Home Social History Tobacco Use [...] in this encounter Discharge Summaries * Cayetano Engel MD - 02/02/2021 5:51 PM EST Discharge Summary Patient Name: Wero Sadler Patient Age: 71 y.o. Language: Serbian Race: White Ethnicity: Not nor Admit date: [...] Hospital Course: Patient was admitted electively to [facility] via the same day surgery program [...] during vascular procedure at [facility] in [place]: shaking Has [...] Oncology at [facility] Arrive at: [facility] door at end of hallway [phone] 03/15/2021 11:00 AM Kushal Aceves MD Neurology at [facility] Arrive at: Database Software Technician Area 3C [phone] 03/22/2021 2:00 PM Cayetano Engle MD Urology at [facility] Arrive at: Home [phone] Please do not come in for this visit. Your provider will call you at the number you provided. 03/30/2021 1:30 PM STJ INFUSION, ROOM Hematology Oncology at [facility] Arrive at: [facility] door at end of hallway [phone] 04/27/2021 1:30 PM [facility] INFUSION, ROOM Hematology Oncology at [facility] door at end of hallway [phone] 05/25/2021 1:30 PM ST[facility] INFUSION, ROOM Hematology Oncology at [facility] Arrive at: [facility] door at end of hallway [phone] 06/22/2021 1:30 PM STJ INFUSION, ROOM Hematology Oncology at [facility] Arrive at: [facility] door at end of hallway [phone] Follow-Up: Future Appointments Date Time Provider Department Center 03/02/2021 1:30 PM [facility] INFUSION, ROOM [facility] 03/15/2021 11:00 AM Kushal Aceves MD [facility] NEURO [facility] 03/22/2021 2:00 PM Cayetano Engle MD [facility] URO [facility] 03/30/2021 1:30 PM STJ INFUSION, ROOM [facility] 04/27/2021 1:30 PM STJ INFUSION, ROOM [facility] 05/25/2021 1:30 PM STJ INFUSION, ROOM [facility] 06/22/2021 1:30 PM STJ INFUSION, ROOM [facility] Primary Care Provider: Alo Carey DO [phone] Follow-up Recommendations for Providers: F/u with Dr. [...] was managed by the Urology Team at [facility]. If you have any questions or concerns, please feel free to contact us. Provider Contact Information: Urology Clinic: [facility] (after business hours): documented in this encounter Discharge Instructions * Patient Instructions* Navin Crocker MD - 02/02/2021 6:03 PM EST [facility] Urology Post-Operative Discharge Instructions PHOTO-SELECTIVE VAPORIZATION OF [...] your urine. Follow Up: ??? Please call [facility] Urology at [phone] to make a routine follow-up appointment 4 weeks after your surgery. The Inpatient team may suggest earlier date if deemed necessary. Please see below if your appointment has already been created. ??? If you have any immediate questions or concerns, you may call the main [facility] line and ask the incising machine operator for the ???Urology Resident director distribution?? . FOLLOW-UP APPOINTMENT Future Appointments and Orders Future Appointments and Orders Future Appointments Provider Department Dept Phone 03/02/2021 1:30 PM STJ INFUSION, ROOM Hematology Oncology at [facility] Arrive at: [facility] door at end of hallway [phone] 03/15/2021 11:00 AM Kushal Aceves MD Neurology at [facility] Arrive at: Database Software Technician Area [phone] 03/30/2021 1:30 PM STJ INFUSION, ROOM Hematology Oncology at [facility] door at end of hallway [phone] 04/27/2021 1:30 PM ST[facility] INFUSION, ROOM Hematology Oncology at [facility] door at end of hallway [phone] 05/25/2021 1:30 PM STJ INFUSION, ROOM Hematology Oncology at [facility] door at end of hallway [phone] 06/22/2021 1:30 PM STJ INFUSION, ROOM Hematology Oncology at [facility] Arrive at: [facility] door at end of hallway [phone] documented in this encounter Medications at Time [...] RN, transfer of care to [facility] in room 136 * Briana Burton [...] - 02/02/2021 8:33 AM EST Patient Name: Weor Sadler Patient Age: 71 y.o. Birthdate: 1950 [...] ??? Colon adenocarcinoma 2009 recieved chemo in [place] ??? Coronary artery dissection ??? CPAP (continuous [...] MD at [facility] MAIN OR ALLERGIES Allergies Allergen Reactions ??? Other [Unclassified Drug] Other (See Comments) Had reaction to a dye used during vascular procedure at [facility] in [place]: shaking Has [...] follow-up Alo Carey DO Relationship: PCP - [address] [place] [address] Transportation: Brother able to provide transport upon discharge Wheelchair van/Ambulance? No Functional status prior to admission: Independent Home Environment: Others in the home: sibling(s) (Patient lives with his two brothers in [place], [place] (mailing address is [place], [place]).). Current Living Arrangements: home/apartment/condo. Accessibility Concerns:Resides [...] AARP SUPPLEMENT Prescription Coverage: Yes Preferred Pharmacy: [id number] - [place], [place] - [address] [facility] [address] [address] This plan was formulated with input from patient, brother Damian, and team. All are in agreement with plan. Jackelyn Marti RN Clinical Triage AssistantSeasonal Sales Associate * Brief Op Note - Navin Crocker MD - 02/02/2021 10:07 AM EST [facility] Brief Operative Note [address] Patient Name: Wero Sadler : [id number] MR#: [id number] Case Date: 02/02/2021 Case Scheduled Time: 0830 [...] Crocker MD - 02/02/2021 9:13 AM EST [facility] Operative Note [address] Patient Name: Wero Sadler : [id number] MR#: [id number] Case Date: 02/02/2021 Case Scheduled Time: 829 [...] removing the sheath and placing an 20 Greenlandic 3-way Krause catheter. The drainage was clear; therefore, we left the bladder irrigation on standby. The patient tolerated the procedure very well and after adequate recovery, he was transferred to the Recovery Room in stable condition. ATTESTATION: I was present for the entirety of the case. No complication occurred throughout the procedure. TOTAL ENERGY USED: [id number] joules. LASING TIME: 16 minutes and 47 [...] AM EST Office Visit Hematology/Oncology at [address] [phone] Cl Hess MD [facility] [place] [address] [address] HEMATOLOGY AND ONCOLOGY [place], [place] [address] 04/09/2024 10:00 AM EST Infusion Hematology Oncology at [address] [phone] 04/23/2024 9:30 AM EST Office Visit Hematology/Oncology at [address] [phone] Cl Hess MD [facility] [place] [address] [address] HEMATOLOGY AND ONCOLOGY [place], [place] [address] 04/23/2024 10:00 AM EST Infusion Hematology Oncology at [address] [phone] 05/18/2024 4:30 PM EDT TH Visit (TeleHealth) [place] [address] Malachi Rothman MD [facility] [place] [address] 09/24/2024 9:00 AM EDT Office Visit Radiation Oncology at [address] [phone] Ping Moore PA [facility] DR HEMATOLOGY [place] [address] documented as of this encounter Procedures Procedure Name Priority Date/Time Associated Diagnosis Comments MODIFIER,GREENLIGHT LASER 02/02/2021 8:55 AM EST Benign prostatic hyperplasia, unspecified whether lower urinary tract symptoms present Laser Vaporization Surgery Prostate, Complete ([id number]) 02/02/2021 8:55 AM EST Benign prostatic hyperplasia, unspecified whether lower urinary tract symptoms present POCT GLUCOSE Routine 02/02/2021 8:36 AM EST BASIC METABOLIC PANEL Routine 02/02/2021 8:20 AM EST documented in this encounter Results * POCT Glucose (02/02/2021 8:36 AM EST) Glucose, POC 142 65 - 199 mg/dL [facility] Blood 02/02/2021 8:36 AM EST 02/02/2021 8:36 AM EST Cayetano Engle MD POINT OF CARE TEST O RDERABLES [facility] [address] [place] [address] * (ABNORMAL) Basic Metabolic Panel (non-fasting) (02/02/2021 8:20 AM EST) Glucose 123 65 - 199 mg/dL [facility] Comment:Diabetes: >=200 mg/d L plus symptoms Blood Urea Nitrogen 13 10 - 20 mg/dL [facility] Creatinine 0.51(L) 0.80 - 1.50 mg/dL [facility] Sodium 136 135 - 145 mmol/L [facility] Potassium 4.1 3.5 - 5.0 mmol/L [facility] Comment: Please note: ??Patients with WBC >100,000 may have falsely elevated Potassium levels. ??For accurate Potassium quantification in these patients send serum separator tube (gold top) for subsequent determinations. ??Contact the Clinical Chemistry Laboratory if there are any questions. Chloride 103 98 - 107 mmol/L [facility] Carbon Dioxide 19(L) 22 - 31 mmol/L [facility] Anion Gap 14 5 - 15 mmol/L [facility] Calcium 8.3(L) 8.5 - 10.5 mg/dL [facility] Est Glomerular Filtration Rate 107 >=60 mL/min/1. 73 m?? [facility] Comment: This patient? s estimated [...] Agency Comment Spec In Lab Leah Trejo RESOLUTION MANAGER CHEMISTRY ORDERABL ES [facility] [address] [place] [address] documented in this encounter Visit Diagnoses Diagnosis [...] on Sat02/02/21 at 2100, Until Discontinued, Routine Given 02/03/2021 [...] Provider: Ale Lou RN - Reason: Patient/family refused)1751 (Given - Provider: Ale Lou RN)2325 (Given - Provider: Ruth Morales, RN) 05 (Given - Provider: Ruth Morales, RN) amLODIPine (Norvasc) tablet 10 mg 10 mg, Oral, DAILY, First dose on Sat02/03/21 at 0900, Until Discontinued, Routine 08 (Given - Provid er: Tarcy Mann RN) aspirin EC tablet 81 mg [...] Ammy 02/02/21 at 1700, Until Discontinued, Routine 175 (Given - Provider: Ale Lou RN) 0809 (Given - Provider: Tracy Mann RN) ciprofloxacin (Cipro) 400 mg in dextrose 5% 200 mL infusion (COMPLETED) 400 mg, Intravenous, STONE CLEANER TO O.R., 1 dose, On Ammy 02/02/21 [...] Prophylaxis 2030 (New Bag - Provider: Ruth Morales, AYE)2130 (Stopped - Provider: Ruth Morales RN) clopidogreL [...] 1407, Routine 1537 (New Bag - Provider: Keorn Lou RN - Comment: Bag #8) sodium [...] Routine documented in this encounter Care Teams Integration Technician Relationship Specialty Start Date End Date Alo Carey DO [address] [place] [address] [place] [address] PCP - General Internal Medicine 08/31/20 07/03/23 documented as of this encounter
--- OUTSIDE RECORDS SUMMARY | 2024-03-26 10:41 | XMS_ITS | Encounter Summary ---
[place] [address] Care Team Providers Care Land Lease Information Clerk Name Role Phone YungAlo santiago Primary Care Provider [phone] Reason for Visit * Reason Onset Date Comments Other 04/24/2021 Lab orders Encounter Details Date Type Department Care Team (Late st Contact Info) Description 04/24/2021 Telephone [place] [phone] Kushal Aceves MD [facility] [place] [address] Other (Lab orders/) Social History Tobacco Use [...] 04/24/2021 11:44 AM EST Call Center / Galley Cook Message - Lab/Test being requested to be done Provider patient sees in Clinic: Kushal Aceves MD Caller: [facility] Radiology If not Pt / Relation to pt: Call back Number: [phone] OK to leave message: Yes Reason for call: request for lab or test orders ??? What labs or tests are being requested: Creatinine labs prior to MRI scheduled for 05/02/21 ??? Where does the caller request the order be sent: [facility] ORDERS IN THE CHART: No Send request to the nurse Any additional information for the nurse/provider: Disposition of call ( choose one and remove the other) ??? Message sent to clinic nurse documented in this encounter Plan of Treatment Upcoming Encounters Date Type Department Care Team (Late st Contact Info) Description 04/09/2024 9:30 AM EST Office Visit Hematology/Oncology at [address] [phone] lC Hess MD [facility] [place] [address] Yessi Renee APRN [address] [place] [address] DR HEMATOLOGY AND ONCOLOGY [place], [place] [address] 04/09/2024 10:00 AM EST Infusion Hematology Oncology at [address] [phone] 04/23/2024 9:30 AM EST Office Visit Hematology/Oncology at [address] [phone] Cl Hess MD [facility] [place] [address] Yessi Renee APRN [address] [place] [address] DR HEMATOLOGY AND ONCOLOGY [place], [place] [address] 04/23/2024 10:00 AM EST Infusion Hematology Oncology at [address] [address] 05/18/2024 4:30 PM EDT TH Visit (TeleHealth) [place] [address] Malachi Rothman MD [facility] [place] [address] 09/24/2024 9:00 AM EDT Office Visit Radiation Oncology at [address] [phone] Ping Moore PA [facility] [place] [address] documented as of this encounter Visit Diagnoses Diagnosis Stenosis of right carotid artery Occlusion and stenosis of carotid artery without mention of cerebral infarction documented in this encounter Care Teams Land Lease Information Clerk Relationship Specialty Start Date End Date Alo Carey DO [address] [place] [address] [place] [address] PCP - General Internal Medicine 08/31/20 07/03/23 documented as of this encounter
--- OUTSIDE RECORDS SUMMARY | 2024-03-26 10:41 | XMS_ITS | Encounter Summary ---
Author Organization [place] [address] Care Team Providers Care Nozzle Operator Name Role Phone Alo Carey Primary Care Provider [phone] Encounter Details Date Type Department Care Team (Latest Contact Info) Description 05/04/2021 9:00 AM EST Office Visit [place] [address] Pedro Mai MD [facility] [place] [address] Preop examination; Primary osteoarthritis of right hip; [...] History Occupational History ??? 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 Smoking status: Former Smoker [...] flank pain and hematuria. Had TURP at [facility] last year after other JIMI and [...] at [facility] in [place]: shaking Has tolerated MRI [...] ECGs available Confirmed by Janki Allred MD ([id number]) on 10/06/2020 3:29:14 PM Xray - severe [...] will defer to Dr. Aceves on further estate planning counselor regards this and he has kindly [...] AM EST Office Visit Hematology/Oncology at [address] [phone] Cl Hess MD [facility] [place] [address] [address] [place] [address] 04/09/2024 10:00 AM EST Infusion Hematology Oncology at [address] [address] 04/23/2024 9:30 AM EST Office Visit Hematology/Oncology at [address] [phone] Cl Hess MD [facility] [place] [address] [address] [place] [address] 04/23/2024 10:00 AM EST Infusion Hematology Oncology at [address] [phone] 05/18/2024 4:30 PM EDT TH Visit (TeleHealth) [place] [address] Malachi Rothman MD [facility] [place] [address] 09/24/2024 9:00 AM EDT Office Visit Radiation Oncology at [address] [phone] Ping Moore PA [facility] [place] [address] documented as of this encounter Visit Diagnoses Diagnosis Preop examination Preoperative examination, unspecified Primary osteoarthritis of right hip Primary localized osteoarthrosis, pelvic region and thigh ASCVD (arteriosclerotic cardiovascular disease) Unspecified cardiovascular disease documented in this encounter Care Teams Nozzle Operator Relationship Specialty Start Date End Date Alo Carey DO [address] [place] [address] [place] [address] PCP - General Internal Medicine 08/31/20 07/03/23 documented as of this encounter
--- OUTSIDE RECORDS SUMMARY | 2024-03-26 10:41 | XMS_ITS | Encounter Summary ---
[place] [address] Care Team Providers Care Combination Saw Operator Name Role Phone Alo Carey Primary Care Provider [phone] Encounter Details Date Type Department Care Team (Late st Contact Info) Description 04/26/2021 2:30 PM EST Office Visit Radiation Oncology at [address] [phone] Bigg Peters MD [address] [place] [address] [place] [address] Malignant neoplasm of prostate Social [...] Patient Followup Note Bigg Peters MD, MS [facility] Patient Identification: Wero Sadler is a [...] AM EST Office Visit Hematology/Oncology at [address] [phone] Cl Hess MD [facility] [place] [address] [address] HEMATOLOGY AND ONCOLOGY [place], [place] [phone] 04/09/2024 10:00 AM EST Infusion Hematology Oncology at [address] [phone] 04/23/2024 9:30 AM EST Office Visit Hematology/Oncology at [address] [phone] Cl Hess MD [facility] [place] [address] [address] HEMATOLOGY AND ONCOLOGY [place], [place] [address] 04/23/2024 10:00 AM EST Infusion Hematology Oncology at [address] [phone] 05/18/2024 4:30 PM EDT TH Visit (TeleHealth) [place] [address] Malachi Rothman MD [facility] [place] [address] 09/24/2024 9:00 AM EDT Office Visit Radiation Oncology at [address] [phone] Ping Moore PA [facility] DR [place] [address] documented as of this encounter Visit Diagnoses Diagnosis Malignant neoplasm of prostate documented in this encounter Care Teams Combination Saw Operator Relationship Specialty Start Date End Date Alo Carey DO [address] [place] [address] [place] [phone] PCP - General Internal Medicine 08/31/20 07/03/23 documented as of this encounter
--- OUTSIDE RECORDS SUMMARY | 2024-03-26 10:41 | XMS_ITS | Encounter Summary ---
Author Organization [facility] [place] [address] Care Team Providers Care Thin Film Technician Name Role Phone Alo Carey DO Primary Care Provider [phone] Encounter Details Date Type Department Care Team (Late st Contact Info) Description 05/05/2021 Telephone [place] [address] Pedro Mai MD [facility] [place] [address] Social History Tobacco Use Types Packs/Day Years [...] AM EST Office Visit Hematology/Oncology at [address] [phone] Cl Hess MD [facility] [place] [address] [address] HEMATOLOGY AND ONCOLOGY [place], [place] [phone] 04/09/2024 10:00 AM EST Infusion Hematology Oncology at [address] [phone] 04/23/2024 9:30 AM EST Office Visit Hematology/Oncology at [address] [phone] Cl Hess MD [facility] [place] [address] Yessi Renee, [address] HEMATOLOGY [place] [address] 04/23/2024 10:00 AM EST Infusion Hematology Oncology at [address] [address] 05/18/2024 4:30 PM EDT TH Visit (TeleHealth) [place] [address] Malachi Rothman MD [facility] [place] [address] 09/24/2024 9:00 AM EDT Office Visit Radiation Oncology at [address] [phone] Ping Moore PA [facility] [place] [address] documented as of this encounter Visit Diagnoses Not on filedocumented in this encounter Care Teams Thin Film Technician Relationship Specialty Start Date End Date Alo Carey DO [address] [place] [address] [place] [address] PCP - General Internal Medicine 08/31/20 07/03/23 documented as of this encounter
--- OUTSIDE RECORDS SUMMARY | 2024-03-26 10:41 | XMS_ITS | Encounter Summary ---
[place] [address] Care Team Providers Care Gypsum Roofer Name Role Phone YungAlo santiago Primary Care Provider [phone] Encounter Details Date Type Department Care Team (Late st Contact Info) Description 02/22/2021 [place] [phone] Judson Camarena MD Social History Tobacco Use [...] 02/02 (ASA/Plavix through surgery). Patient is at [facility] ED for retention. Approximately 1000 ml marooned colored urine output. Discussed with [facility] ED nursing staff and ER [...] for void trial in 7-10 days at [facility]. Added to culture list. Note routed to Dr. Engle. Judson Camarena MD documented in this encounter Plan of Treatment Upcoming Encounters Date Type Department Care Team (Late st Contact Info) Description 04/09/2024 9:30 AM EST Office Visit Hematology/Oncology at [address] [phone] Cl Hess MD [facility] [place] [address] [address] HEMATOLOGY [place] [address] 04/09/2024 10:00 AM EST Infusion Hematology Oncology at [address] [phone] 04/23/2024 9:30 AM EST Office Visit Hematology/Oncology at [address] [place] [address] [phone] Cl Hess MD [facility] [place] [address] Yessi Renee, [address] HEMATOLOGY [place] [address] 04/23/2024 10:00 AM EST Infusion Hematology Oncology at [address] [phone] 05/18/2024 4:30 PM EDT TH Visit (TeleHealth) [place] [address] Malachi Rothman MD [facility] [place] [address] 09/24/2024 9:00 AM EDT Office Visit Radiation Oncology at [address] [phone] Ping Moore PA [facility] DR [place] [address] documented as of this encounter Visit Diagnoses Not on filedocumented in this encounter Care Teams Gypsum Roofer Relationship Specialty Start Date End Date Alo Carey DO [address] [place] [address] [place] [address] PCP - General Internal Medicine 08/31/20 07/03/23 documented as of this encounter
--- OUTSIDE RECORDS SUMMARY | 2024-03-26 10:41 | XMS_ITS | Encounter Summary ---
[place] [address] Care Team Providers Care Production Bow Maker Name Role Phone Alo Carey DO Primary Care Provider [phone] Reason for Referral * Diagnostic Test (Routine) - Closed Specialty Diagnoses / Procedures Referred By Marques livingston Referred To Contact Radiology Diagnoses Malignant neoplasm of prostate Procedures MRI Pelvis wo (Prostate) Bigg Peters MD [address] [place] [address] [place] [address] [place] [address] Referral ID Status Reason Start Date Expiration Date V isits Requested Visits Authorized [id number] Closed Specialty Service Requested 04/11/2021 10/09/2022 1 1 Encounter Details Date Type Department Care Team (Late st Contact Info) Description 04/11/2021 Orders Only Radiation Oncology at [address] [phone] Bigg Peters MD [address] [place] [address] DR RADIATION ONCOLOGY [place], [place] [address] Malignant neoplasm of prostate Social History Tobacco [...] AM EST Office Visit Hematology/Oncology at [address] [phone] Cl Hess MD [facility] [place] [address] Yessi Renee [address] [place] [address] 04/09/2024 10:00 AM EST Infusion Hematology Oncology at [address] [phone] 04/23/2024 9:30 AM EST Office Visit Hematology/Oncology at [address] [phone] Cl Hess MD [facility] [place] [place] [address] Yessi Renee [address] HEMATOLOGY [place] [address] 04/23/2024 10:00 AM EST Infusion Hematology Oncology at [address] [phone] 05/18/2024 4:30 PM EDT TH Visit (TeleHealth) [place] [address] Malachi Rothman MD [facility] [place] [address] 09/24/2024 9:00 AM EDT Office Visit Radiation Oncology at [address] [phone] Ping Moore PA [facility] HEMATOLOGY [place] [address] documented as of this encounter Results * [...] who have questions please contact the health rn care transition that requested your imaging first. ? Narrative [...] patients who have questions please contactthe health rn care transition that requested your imaging first. Bigg Peters MD IM MRI ORDERABLES documented in this encounter Visit Diagnoses Diagnosis Malignant neoplasm of prostate Malignant neoplasm of prostate documented in this encounter Care Teams Production Bow Maker Relationship Specialty Start Date End Date Alo Carey DO [address] [place] [address] [place] [phone] PCP - General Internal Medicine 08/31/20 07/03/23 documented as of this encounter
--- OUTSIDE RECORDS SUMMARY | 2024-03-26 10:41 | XMS_ITS | Encounter Summary ---
[place] [address] Care Team Providers Care Line Haul Truck Driver Name Role Phone Alo Carey DO Primary Care Provider [phone] Encounter Details Date Type Department Care Team (Late Contact Info) Description 05/04/2021 11:00 AM EST Laboratory [place] [address] Social History Tobacco Use Types [...] AM EST Office Visit Hematology/Oncology at [address] [phone] Cl Hess MD [facility] [address] [address] HEMATOLOGY AND ONCOLOGY [place], [place] [phone] 04/09/2024 10:00 AM EST Infusion Hematology Oncology at [address] [phone] 04/23/2024 9:30 AM EST Office Visit Hematology/Oncology at [address] [phone] Cl Hess MD [facility] [place] [address] [address] HEMATOLOGY AND ONCOLOGY [place], [place] [phone] 04/23/2024 10:00 AM EST Infusion Hematology Oncology at [address] [phone] 05/18/2024 4:30 PM EDT TH Visit (TeleHealth) [place] [address] Malachi Rothman MD [facility] [place] [address] 09/24/2024 9:00 AM EDT Office Visit Radiation Oncology at [address] [phone] Ping Moore PA [facility] DR HEMATOLOGY [place] [address] documented as of this encounter Visit Diagnoses Not on filedocumented in this encounter Care Teams Line Haul Truck Driver Relationship Specialty Start Date End Date Alo Carey DO [address] [place] [address] [place] [address] PCP - General Internal Medicine 08/31/20 07/03/23 documented as of this encounter
--- OUTSIDE RECORDS SUMMARY | 2024-03-26 10:41 | XMS_ITS | Encounter Summary ---
[place] [address] Care Team Providers Care Huller Operator Name Role Phone Alo Carey DO Primary Care Provider [phone] Reason for Visit * Consultation (Routine) - Closed Specialty Diagnoses / Procedures Referred By Marques livingston Referred To Contact Gastroenterology Diagnoses Other specified diseases of pancreas Procedures Consult Alo Carey DO [address] [place] [address] [facility] [address] [place] [address] Referral ID Status Reason Start Date Expiration Date Visits Re quested Visits Authorized [id number] Closed 02/10/2021 02/10/2022 1 1 Encounter Details Date Type Department Care Team (Latest Contact Info) Description 04/04/2021 10:30 AM EST TH Visit (TeleHealth) [place] [address] Shruti Rao PA [facility] [place] [address] Pancreatic abnormality Social History Tobacco Use Types [...] diagnosed in June 2020 while living in [place] He has been on Plavix for years [...] Carotid endarterectomy; joint replacement; Total Hip Arthroplasty (36584) (Left, 10/10/2020); and Laser V aporization Surgery Prostate, Complete (31253) (Midline, 02/02/2021). Family History: denies family history [...] consultation for abnormal imaging. While living in [place] he was diagnosed with prostate cancer. After moving back to [place] he discussed this with his PCP who [...] EUS if indicated. He is leaving for [place] on Saturday but will be home at [...] Sadler questions were answered today. CASA Chapman [facility] [place] [address] documented in this encounter Plan of Treatment Upcoming Encounters Date Type Department Care Team (Late st Contact Info) Description 04/09/2024 9:30 AM EST Office Visit Hematology/Oncology at [address] [phone] Cl Hess MD [facility] [place] [address] [address] HEMATOLOGY [place] [address] 04/09/2024 10:00 AM EST Infusion Hematology Oncology at [address] [phone] 04/23/2024 9:30 AM EST Office Visit Hematology/Oncology at [address] [phone] Cl Hess MD [facility] [place] [address] HEMATOLOGY [place] [address] 04/23/2024 10:00 AM EST Infusion Hematology Oncology at [address] [phone] 05/18/2024 4:30 PM EDT TH Visit (TeleHealth) [place] [address] Malachi Rothman MD [facility] DR [place] [address] 09/24/2024 9:00 AM EDT Office Visit Radiation Oncology at [address] [phone] Ping Moore PA [facility] DR HEMATOLOGY [place] [address] documented as of this encounter Visit Diagnoses Diagnosis Pancreatic abnormality documented in this encounter Care Teams Huller Operator Relationship Specialty Start Date End Date Alo Carey DO [address] [place] [address] [place] [address] PCP - General Internal Medicine 08/31/20 07/03/23 documented as of this encounter
--- OUTSIDE RECORDS SUMMARY | 2024-03-26 10:41 | XMS_ITS | Encounter Summary ---
[place] [address] Care Team Providers Care Signaling Design Engineer Name Role Phone CherryAlo Primary Care Provider [phone] Encounter Details Date Type Department Care Team (Late st Contact Info) Description 02/22/2021 [place] [phone] Cayetano Engle MD [facility] [place] [address] Social History Tobacco Use Types Packs/Day Years [...] Miscellaneous Notes * Telephone Encounter - Sarai Maoyrga - 02/22/2021 9:13 AM EST S/P surgery 02/[address] Engle. Patient woke up this morning and had a lot of blood while ujrinating. Paged a resident. documented in this encounter Plan of Treatment Upcoming Encounters Date Type Department Care Team (Late st Contact Info) Description 04/09/2024 9:30 AM EST Office Visit Hematology/Oncology at [address] [phone] Cl Hess MD [facility] [place] [address] [address] HEMATOLOGY AND ONCOLOGY [place], [place] [address] 04/09/2024 10:00 AM EST Infusion Hematology Oncology at [address] [phone] 04/23/2024 9:30 AM EST Office Visit Hematology/Oncology at [address] [phone] Cl Hess MD [facility] [place] [address] [address] HEMATOLOGY AND ONCOLOGY [place], [place] [address] 04/23/2024 10:00 AM EST Infusion Hematology Oncology at [address] [phone] 05/18/2024 4:30 PM EDT TH Visit (TeleHealth) [place] [address] Malachi Rothman MD [facility] [place] [address] 09/24/2024 9:00 AM EDT Office Visit Radiation Oncology at [address] [phone] Ping Moore PA [facility] [place] [address] documented as of this encounter Visit Diagnoses Not on filedocumented in this encounter Care Teams Signaling Design Engineer Relationship Specialty Start Date End Date Alo Carey DO [address] [place] [address] [place] [address] PCP - General Internal Medicine 08/31/20 07/03/23 documented as of this encounter
--- OUTSIDE RECORDS SUMMARY | 2024-03-26 10:41 | XMS_ITS | Encounter Summary ---
[place] [address] Care Team Providers Care Beveler Name Role Phone Alo Carey Primary Care Provider [phone] Encounter Details Date Type Department Care Team (Late st Contact Info) Description 05/04/2021 Notes [place] [phone] Sr Ismael Morales Social History Tobacco Use [...] knee Replacement: Balancing Safety and Effectiveness. Principle Epic Cupid Analyst: Dr. Phan Mohr #: [id number] Informed consent for the above entitled study [...] AM EST Office Visit Hematology/Oncology at [address] [phone] Cl Hess MD [facility] [place] [address] Yessi Renee [address] HEMATOLOGY AND ONCOLOGY [place], [place] [address] 04/09/2024 10:00 AM EST Infusion Hematology Oncology at [address] [phone] 04/23/2024 9:30 AM EST Office Visit Hematology/Oncology at [address] [phone] Cl Hess MD [facility] [address] [address] HEMATOLOGY AND ONCOLOGY [place], [place] [address] 04/23/2024 10:00 AM EST Infusion Hematology Oncology at [address] [phone] 05/18/2024 4:30 PM EDT TH Visit (TeleHealth) [place] [address] Malachi Rothman MD [facility] [place] [address] 09/24/2024 9:00 AM EDT Office Visit Radiation Oncology at [address] [phone] Ping Moore PA [facility] [place] [address] documented as of this encounter Visit Diagnoses Not on filedocumented in this encounter Care Teams Beveler Relationship Specialty Start Date End Date Alo Carey DO [address] [place] [address] [place] [address] PCP - General Internal Medicine 08/31/20 07/03/23 documented as of this encounter
--- OUTSIDE RECORDS SUMMARY | 2024-03-26 10:41 | XMS_ITS | Encounter Summary ---
Author Organization [facility] [place] [address] Care Team Providers Care Window Trimmer Name Role Phone Alo Carey DO Primary Care Provider [phone] Reason for Visit * Consultation (Routine) - Closed Specialty Diagnoses / Procedures Referred By Marques livingston Referred To Contact Neurology Diagnoses ASCVD (arteriosclerotic cardiovascular disease) Ismael Wu MD [facility] [place] [address] [facility] Neu[facility] [address] [place] [address] Referral ID Status Reason Start Date Expiration Date V isits Requested Visits Authorized [id number] Closed Consult, Test & Treat 11/17/2020 11/17/2021 1 1 Encounter Details Date Type Department Care Team (Late st Contact Info) Description 03/15/2021 11:00 AM EST [place] [address] Kushal Aceves MD [facility] DR NEUROLOGY DEPT [place] [id number] Stenosis of right carotid artery Social History [...] Disease and Stroke Program Department of Neurology [place] [id number] t: [phone] / f: [phone] Date of Appointment: 03/15/2021 Patient: Tha Sadler PCP: Alo Carey DO Consultation Requested By: Ismael Wu Md [facility] [place] [address] . HISTORY: This 71 y.o. male is evaluated because of transient blurred vision and a right petrous carotid stenosis. He has a history of DM, tobacco abuse until 1989, He had a right CEA after disease was found during evaluation for surgery for his PAD in June of 2018 and a left CEA with a CABG in December of 2018 in [facility]. He has PAD with stenting in 2018 and 2019 and and a bypass in March of 2019. 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 On 11/24/2019 while at work his left arm went numb and then he had tunnel vision. He saw a Vascular Surgeon Dr Hobbs in [facility] and a CUS was clear and then had an MRIMRA done that showed no stroke. He was seen in an Eye Clinic in [place] and he has had persistent severe vision loss (99% loss) since then. He saw Dr Avilez in February who presumed he had a retinal artery occlusion more likely than an ischemic optic neuropathy and was given eye drops. He moved to the area after he bought a home in [place]. Needs to have more hip surgery [...] at [facility] Vascular in [place]: shaking Has tolerated MRI [...] level: None Occupational History ??? 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 Smoking status: Former Smoker [...] stop taking your medicine? No Stroke:PROMIS-10 03/15/2021 Ifcdqg34-Faezrewd Health Score 42.3 Oeogod70-Ldnncd Health Score 50.8 Health in general Very [...] Not difficult at all h. Do heavy yardmaster (e.g., vaccum, laundry or yard work?) Not [...] unremarkable DATA: Data and records reviewed: MRI [facility] showed no acute changes but MRA [...] His last carotid ultrasound was done in [place] at that time and showed minimal disease. [...] providingthis patient's care. This includes time spent kepn-dw-ceka with the patient performing evaluation, examination, and counseling . It also includes non mcyv-jy-afoz time preparing to see the patient, reviewing the chart, coordinating care, and documenting clinical information in the electronic healthrecord. documented in this encounter Plan of Treatment Upcoming Encounters Date Type Department Care Team (Late st Contact Info) Description 04/09/2024 9:30 AM EST Office Visit Hematology/Oncology at [address] [phone] Cl Hess MD [facility] [place] [address] Yessi Renee APRN [address] [place] [address] DR HEMATOLOGY AND ONCOLOGY [place], [place] [address] 04/09/2024 10:00 AM EST Infusion Hematology Oncology at [address] [phone] 04/23/2024 9:30 AM EST Office Visit Hematology/Oncology at [address] [phone] Cl Hess MD [facility] [place] [address] Yessi Renee APRN [address] [place] [address] [place] [address] 04/23/2024 10:00 AM EST Infusion Hematology Oncology at [address] [phone] 05/18/2024 4:30 PM EDT TH Visit (TeleHealth) [place] [address] Malachi Rothman MD [facility] [place] [address] 09/24/2024 9:00 AM EDT Office Visit Radiation Oncology at [address] [phone] Ping Moore PA [facility] DR [place] [address] Scheduled Referrals Name Type Priority Associated Diagnoses Orde r Schedule Referral to Neurology Outpatient Referral Routine ASCVD (arteriosclerotic cardiovascular disease) Ordered: 11/17/2020 documented as of this encounter Visit Diagnoses Diagnosis Stenosis of right carotid artery Occlusion and stenosis of carotid artery without mention of cerebral infarction documented in this encounter Care Teams Window Trimmer Relationship Specialty Start Date End Date Alo Carey DO [address] [place] [address] [place] [address] PCP - General Internal Medicine 08/31/20 07/03/23 documented as of this encounter
--- OUTSIDE RECORDS SUMMARY | 2024-03-26 10:41 | XMS_ITS | Encounter Summary ---
Author Organization [facility] [place] [address] Care Team Providers Care Eye Care Professional Name Role Phone Alo Carey DO Primary Care Provider [phone] Encounter Details Date Type Department Care Team (Latest Contact Info) Description 05/04/2021 10:00 AM EST Office [place] [address] Ismael Wu MD [facility] [place] [address] Primary osteoarthritis of right hip Social History [...] where referrals are placed patient lives in [place], no preference on VNA. Prep for Surgery [...] AM EST Office Visit Hematology/Oncology at [address] [phone] Cl Hess MD [facility] [place] [address] Yessi Renee APRN [address] [place] [address] DR [place] [address] 04/09/2024 10:00 AM EST Infusion Hematology Oncology at [address] [phone] 04/23/2024 9:30 AM EST Office Visit Hematology/Oncology at [address] [phone] Cl Hess MD [facility] [place] [address] Yessi Renee APRN [address] [place] [address] DR [place] [address] 04/23/2024 10:00 AM EST Infusion Hematology Oncology at [address] [phone] 05/18/2024 4:30 PM EDT TH Visit (TeleHealth) [place] [address] Malachi Rothman MD [facility] [place] [address] 09/24/2024 9:00 AM EDT Office Visit Radiation Oncology at [address] [phone] Ping Moore PA [facility] DR [place] [address] documented as of this encounter Visit Diagnoses [...] each documented in this encounter Care Teams Eye Care Professional Relationship Specialty Start Date End Date Alo Carey DO [address] [place] [address] [place] [address] PCP - General Internal Medicine 08/31/20 07/03/23 documented as of this encounter
--- OUTSIDE RECORDS SUMMARY | 2024-03-26 10:41 | XMS_ITS | Encounter Summary ---
[place] [address] Care Team Providers Care Quality Engineer Medical Device Name Role Phone Cherry Alo Lon RUTHERFORD Primary Care Provider Encounter Details Date Type Department Care Team (Late st Contact Info) Description 02/23/2021 [place] [address] Cayetano Engle MD [facility] [place] [address] Social History Tobacco Use Types Packs/Day Years [...] patient was seen with clot retention at [facility] yesterday. We are trying to arrange a void trial for him. I would be ok with him having a void trial prior to Kathy as long as bleeding has stopped. He [...] AM EST Office Visit Hematology/Oncology at [address] [phone] Cl Hess MD [facility] [place] [address] Yessi Renee, [address] [place] [address] 04/09/2024 10:00 AM EST Infusion Hematology Oncology at [address] [phone] 04/23/2024 9:30 AM EST Office Visit Hematology/Oncology at [address] [phone] Cl Hess MD [facility] [place] [address] [place] [address] 04/23/2024 10:00 AM EST Infusion Hematology Oncology at [address] [phone] 05/18/2024 4:30 PM EDT TH Visit (TeleHealth) [place] [address] Malachi Rothman MD [facility] DR [place] [address] 09/24/2024 9:00 AM EDT Office Visit Radiation Oncology at [address] [phone] Ping Moroe PA [facility] DR HEMATOLOGY [place] [address] documented as of this encounter Visit Diagnoses Not on filedocumented in this encounter Care Teams Quality Engineer Medical Device Relationship Specialty Start Date End Date Alo Carey DO [address] [place] [address] [place] [address] PCP - General Internal Medicine 08/31/20 07/03/23 documented as of this encounter
--- OUTSIDE RECORDS SUMMARY | 2024-03-26 10:41 | XMS_ITS | Encounter Summary ---
[place] [address] Care Team Providers Care Furniture Maker Name Role Phone Alo Carey Primary Care Provider Encounter Details Date Type Department Care Team (Late st Contact Info) Description 02/23/2021 Telephone Urology at [place] [facility] [address] [place] [phone] Tristen Novoa Social History Tobacco Use [...] last evening and a urology resident from [facility] was contacted. A witt catheter was placed [...] that he sees Dr. Myers up in [place] and was thinking of contacting him to [...] AM EST Office Visit Hematology/Oncology at [address] [phone] Cl Hess MD [facility] [place] [address] Yessi Renee APRN [address] [place] [address] DR H[place]ATOLOGY [place] [address] 04/09/2024 10:00 AM EST Infusion Hematology Oncology at [address] [phone] 04/23/2024 9:30 AM EST Office Visit Hematology/Oncology at [address] [phone] Cl Hess MD [facility] [place] [address] Yessi Renee APRN [address] [place] [address] DR [place]OLOGY [place] [address] 04/23/2024 10:00 AM EST Infusion Hematology Oncology at [address] [phone] 05/18/2024 4:30 PM EDT TH Visit (TeleHealth) [place] [address] Malachi Rothman MD [facility] [place] [address] 09/24/2024 9:00 AM EDT Office Visit Radiation Oncology at [address] [phone] Ping Moore PA [facility] DR HEMATOLOGY [place] [address] documented as of this encounter Visit Diagnoses Not on filedocumented in this encounter Care Teams Furniture Maker Relationship Specialty Start Date End Date Alo Craey DO [address] [place] [address] [place] [phone] PCP - General Internal Medicine 08/31/20 07/03/23 documented as of this encounter
--- OUTSIDE RECORDS SUMMARY | 2024-03-26 10:41 | XMS_ITS | Encounter Summary ---
[place] [address] Care Team Providers Care Rcp Name Role Phone YungAlo santiago Primary Care Provider [phone] Encounter Details Date Type Department Care Team (Late st Contact Info) Description 05/05/2021 [place] [address] [facility] [place] [address] Social History Tobacco Use Types Packs/Day Years [...] 05/05/2021 12:17 AM EST Outside CTA from [facility] reviewed and shows a high grade right ICA stenosis and a moderate right petrous and cavernous stenoses. His last ischemic event was 11/2019 when he had ocular event. Note from Vascular surgeon in [place] who did his R CEA I believe [...] AM EST Office Visit Hematology/Oncology at [address] [phone] [facility] [place] [address] [address] HEMATOLOGY AND ONCOLOGY [place], [place] [phone] 04/09/2024 10:00 AM EST Infusion Hematology Oncology at [address] [phone] 04/23/2024 9:30 AM EST Office Visit Hematology/Oncology at [address] [phone] [facility] [place] [address] [address] [place] [address] 04/23/2024 10:00 AM EST Infusion Hematology Oncology at [address] [phone] 05/18/2024 4:30 PM EDT TH Visit (TeleHealth) [place] [address] [facility] [place] [address] 09/24/2024 9:00 AM EDT Office Visit Radiation Oncology at [address] [phone] [facility] DR HEMATOLOGY [place] [address] documented as of this encounter Visit Diagnoses Not on filedocumented in this encounter Care Teams Rcp Relationship Specialty Start Date End Date Alo Carey DO [address] [place] [address] [place] [phone] PCP - General Internal Medicine 08/31/20 07/03/23 documented as of this encounter
--- OUTSIDE RECORDS SUMMARY | 2024-03-26 10:42 | XMS_ITS | Encounter Summary ---
[place] [address] Care Team Providers Care Floor Worker [place] Name Role Phone Alo Carey Primary Care Provider [phone] Encounter Details Date Type Department Care Team (Late Contact Info) Description 01/25/2021 Orders Only Radiation Oncology at [address] [place] [address] Bigg Peters MD [address] [place] [address] [place] [address] Social History Tobacco Use Types [...] AM EST Office Visit Hematology/Oncology at [address] [phone] Cl Hess MD [facility] [address] HEMATOLOGY AND ONCOLOGY [place], [place] [address] 04/09/2024 10:00 AM EST Infusion Hematology Oncology at [address] [phone] 04/23/2024 9:30 AM EST Office Visit Hematology/Oncology at [address] [phone] Cl Hess MD [facility] [address] [place] [address] 04/23/2024 10:00 AM EST Infusion Hematology Oncology at [address] [phone] 05/18/2024 4:30 PM EDT TH Visit (TeleHealth) [place] [address] Malachi Rothman MD [facility] [place] [address] 09/24/2024 9:00 AM EDT Office Visit Radiation Oncology at [address] [phone] Ping Moore PA [facility] [place] [address] documented as of this encounter Visit Diagnoses Not on filedocumented in this encounter Care Teams Floor Worker [place] Relationship Specialty Start Date End Date Alo Carey DO [address] [place] [address] [place] [phone] PCP - General Internal Medicine 08/31/20 07/03/23 documented as of this encounter
--- OUTSIDE RECORDS SUMMARY | 2024-03-26 10:42 | XMS_ITS | Encounter Summary ---
[place] [address] Care Team Providers Care Shop Estimator Name Role Phone Alo Carey Primary Care Provider [phone] Encounter Details Date Type Department Care Team (Late Contact Info) Description 01/25/2021 Orders Only Radiation Oncology at [address] [place] [address] Bigg Peters MD [address] [place] [address] [place] [address] Social History Tobacco Use Types [...] AM EST Office Visit Hematology/Oncology at [address] [phone] Cl Hess MD [facility] [place] [address] [address] HEMATOLOGY AND ONCOLOGY [place], [place] [address] 04/09/2024 10:00 AM EST Infusion Hematology Oncology at [address] [phone] 04/23/2024 9:30 AM EST Office Visit Hematology/Oncology at [address] [phone] Cl Hess MD [facility] [place] [address] [address] [place] [address] 04/23/2024 10:00 AM EST Infusion Hematology Oncology at [address] [phone] 05/18/2024 4:30 PM EDT TH Visit (TeleHealth) [place] [address] Malachi Rothman MD [facility] [place] [address] 09/24/2024 9:00 AM EDT Office Visit Radiation Oncology at [address] [phone] Ping Moore PA [facility] DR HEMATOLOGY [place] [address] documented as of this encounter Visit Diagnoses Not on filedocumented in this encounter Care Teams Shop Estimator Relationship Specialty Start Date End Date Alo Carey DO [address] [place] [address] [place] [address] PCP - General Internal Medicine 08/31/20 07/03/23 documented as of this encounter
--- OUTSIDE RECORDS SUMMARY | 2024-03-26 10:42 | XMS_ITS | Encounter Summary ---
Author Organization [facility] [place] [address] Care Team Providers Care Carbonation Equipment Operator Name Role Phone Alo Carey DO Primary Care Provider [phone] Reason for Referral * Consultation (Routine) - Closed Specialty Diagnoses / Procedures Referred By Marques livingston Referred To Contact Neurology Diagnoses ASCVD (arteriosclerotic cardiovascular disease) Ismael Wu MD [facility] DR [place] [address] [facility] Neurology [address] [place] [phone] Referral ID Status Reason Start Date Expiration Date V isits Requested Visits Authorized [id number] Closed Consult, Test & Treat 11/17/2020 11/17/2021 1 1 Reason for Visit * Reason Comments Post Op 10/10/2020 LEFT JIMI Encounter Details Date Type Department Care Team (Latest Contact Info) Description 11/17/2020 1:30 PM EDT Office [place] [address] Ismael Wu MD [facility] [place] [address] Primary osteoarthritis of right hip (Primary Dx); [...] he is getting ready to head to [place] for the winter. Wero dnies fevers, chills, [...] a dye used during vascular procedure at [facility] SIGNIFICANT MEDICAL COMORBIDITIES: Patient Active Problem List Diagnosis Code ??? Colorectal cancer C19 ??? Diabetes mellitus E11.9 ??? Hypercholesterolemia E78.00 ??? Hypertensive disorder I10 ??? ASCVD (arteriosclerotic cardiovascular disease) I25.10 ??? Primary osteoarthritis of left hip M16.12 ??? s/p L JIMI, posterior, Dr. Wu, 10/10/20 Z96.642 ??? Postoperative urinary retention N99.89, R33.8 QUESTIONNAIRE RESPONSES: [facility] Surgical Followup Visit 11/17/2020 PROMIS-10 General Health [...] Back pain at this moment None Orthopeadics [facility] Response 11/17/2020 HOOS JR Scores 100 Spine [facility] Response 11/17/2020 HOOS JR Scores 100 PHYSICAL [...] attempt to complete it before he heads [facility] for the winter. All questions were [...] - RIGHT JIMI, posterior, [employer] Ismael Wu MD, MSc Division of Adult Reconstructive Animal SkinnerSales Donor Recruitment Representative of Orthopaedics Department of Orthopaedics [facility] [phone] [email or web address] documented in this encounter Plan of Treatment Upcoming Encounters Date Type Department Care Team (Late st Contact Info) Description 04/09/2024 9:30 AM EST Office Visit Hematology/Oncology at [address] [phone] Cl Hess MD [facility] [place] [address] [address] HEMATOLOGY AND ONCOLOGY [place] [phone] 04/09/2024 10:00 AM EST Infusion Hematology Oncology at [address] [phone] 04/23/2024 9:30 AM EST Office Visit Hematology/Oncology at [address] [phone] Cl Hess MD [facility] [place] [address] [address] HEMATOLOGY AND ONCOLOGY [place], [place] [address] 04/23/2024 10:00 AM EST Infusion Hematology Oncology at [address] [phone] 05/18/2024 4:30 PM EDT TH Visit (TeleHealth) [place] [address] Malachi Rothman MD [facility] [place] [address] 09/24/2024 9:00 AM EDT Office Visit Radiation Oncology at [address] [phone] Ping Moore PA [facility] DR HEMATOLOGY [place] [address] Scheduled Referrals Name Type Priority Associated Diagnoses [...] MD HEMATOLOGY ORDERABL ES Performing Organization Address [facility] de Phone Number [facility] [place] [address] * Prothrombin Time (05/04/2021 11:34 AM EST) [...] MD HEMATOLOGY ORDERABL ES Performing Organization Address [facility] Co de Phone Number [facility] [place] [address] * Basic Metabolic Panel (non-fasting) (05/04/2021 11:34 [...] ORDERABLE S [facility] [place] [address] documented in this encounter Visit Diagnoses Diagnosis Primary osteoarthritis of right hip- Primary Primary localized osteoarthrosis, pelvic region and thigh ASCVD (arteriosclerotic cardiovascular disease) Unspecified cardiovascular disease Right leg pain Pain in limb documented in this encounter Care Teams Carbonation Equipment Operator Relationship Specialty Start Date End Date Alo Carey DO [address] [place] [address] [place] [address] PCP - General Internal Medicine 08/31/20 07/03/23 documented as of this encounter
--- OUTSIDE RECORDS SUMMARY | 2024-03-26 10:42 | XMS_ITS | Encounter Summary ---
Author Organization [facility]ly [facility], Later [facility] Address [facility] [place] [address] Care Team Providers Care Finance Accounting Internship Name Role Phone YungAlo santiago Primary Care Provider [phone] Encounter Details Date Type Department Care Team (Late st Contact Info) Description 02/02/2021 8:30 AM EST - 02/02/2021 9:45 AM EST Surgery Main OR at [address] [phone] Cayetano Engle MD [facility] [address] CYSTO, LASER TURP (WRVU 12.15) Social History [...] Wero Sadler Patient Age: 71 y.o. Language: Yemeni Race: White Ethnicity: Not nor Admit date: [...] Hospital Course: Patient was admitted electively to [facility] via the same day surgery program and [...] a dye used during vascular procedure at [facility] in [place]: shaking Has tolerated [...] PM STJ INFUSION, ROOM Hematology Oncology at [facility] Arrive at: [facility] door at end of hallway [phone] 03/15/2021 11:00 AM Kushal Aceves MD Neurology at [facility] Arrive at: Elevator Service Mechanic Area 3C [phone] 03/22/2021 2:00 PM Cayetano Engle MD Urology at [facility] Arrive at: Home [phone] Please do not come in for this visit. Your provider will call you at the number you provided. 03/30/2021 1:30 PM STJ INFUSION, ROOM Hematology Oncology at [facility] Arrive at: [facility] door at end of hallway [phone] 04/27/2021 1:30 PM STJ INFUSION, ROOM Hematology Oncology at [facility] Arrive at: [facility] door at end of hallway [phone] 05/25/2021 1:30 PM STJ INFUSION, ROOM Hematology Oncology at [facility] Arrive at: [facility] door at end of hallway [phone] 06/22/2021 1:30 PM STJ INFUSION, ROOM Hematology Oncology at [facility] Arrive at: [facility] door at end of hallway [phone] Follow-Up: Future Appointments Date Time Provider Department Center 03/02/2021 1:30 PM STJ INFUSION, ROOM [facility] 03/15/2021 11:00 AM Kushal Aceves MD [facility] NEURO [facility] 03/22/2021 2:00 PM Cayetano Engle MD [facility] URO [facility] 03/30/2021 1:30 PM STJ INFUSION, ROOM [facility] 04/27/2021 1:30 PM STJ INFUSION, ROOM [facility] 05/25/2021 1:30 PM STJ INFUSION, ROOM [facility] 06/22/2021 1:30 PM STJ INFUSION, ROOM [facility] Primary Care Provider: Alo Carey DO [phone] Follow-up Recommendations for Providers: F/u with Dr. [...] was managed by the Urology Team at [facility]. If you have any questions or concerns, please feel free to contact us. Provider Contact Information: Urology Clinic: [facility] (after business hours): documented in this encounter Discharge Instructions * Patient Instructions* Navin Crocker MD - 02/02/2021 6:03 PM EST [facility] Urology Post-Operative Discharge Instructions PHOTO-SELECTIVE VAPORIZATION OF [...] your urine. Follow Up: ??? Please call [facility] Urology at [phone] to make a routine follow-up appointment 4 weeks after your surgery. The Inpatient team may suggest earlier date if deemed necessary. Please see below if your appointment has already been created. ??? If you have any immediate questions or concerns, you may call the main [facility] line and ask the mixing plant operator for the ???Urology Resident fiction and nonfiction author?? . FOLLOW-UP APPOINTMENT Future Appointments and Orders Future Appointments and Orders Future Appointments Provider Department Dept Phone 03/02/2021 1:30 PM STJ INFUSION, ROOM Hematology Oncology at [facility] Arrive at: [facility] door at end of hallway [phone] 03/15/2021 11:00 AM Kushal Aceves MD Neurology at [facility] Arrive at: Elevator Service Mechanic Area [phone] 03/30/2021 1:30 PM STJ INFUSION, ROOM Hematology Oncology at [facility] Arrive at: [facility] door at end of hallway [phone] 04/27/2021 1:30 PM STJ INFUSION, ROOM Hematology Oncology at [facility] Arrive at: [facility] door at end of hallway [phone] 05/25/2021 1:30 PM STJ INFUSION, ROOM Hematology Oncology at [facility] Arrive at: [facility] door at end of hallway [phone] 06/22/2021 1:30 PM STJ INFUSION, ROOM Hematology Oncology at [facility] Arrive at: [facility] door at end of hallway [phone] documented in this encounter Medications at Time [...] RN, transfer of care to Ale on [facility] in room 136 * Briana [...] ??? Colon adenocarcinoma 2009 recieved chemo in [place] ??? Coronary artery dissection ??? CPAP (continuous [...] 20.72) performed by Ismael Wu MD at [facility] MAIN OR ALLERGIES Allergies Allergen Reactions ??? Other [Unclassified Drug] Other (See Comments) Had reaction to a dye used during vascular procedure at [facility] in [place]: shaking Has tolerated [...] follow-up Alo Carey, DO Relationship: PCP - [address] [place] [address] Transportation: Brother able to provide transport upon discharge Wheelchair van/Ambulance? No Functional status prior to admission: Independent Home Environment: Others in the home: sibling(s) (Patient lives with his two brothers in [place], [place] (mailing address is [place], [place]).). Current Living Arrangements: home/apartment/condo. Accessibility Concerns:Resides [...] AARP SUPPLEMENT Prescription Coverage: Yes Preferred Pharmacy: [id number] - [place], [place] - [address] [facility] [address] This plan was formulated with input from patient, brother Damian, and team. All are in agreement with plan. Jackelyn Marti RN Clinical [place] TenderCorporate Counsel * Brief Op Note - Navin Crocker MD - 02/02/2021 10:07 AM EST [facility] Brief Operative Note [address] Patient Name: Wero Sadler : [id number] MR#: [id number] Case Date: 02/02/2021 Case Scheduled Time: 0830 [...] Crocker MD - 02/02/2021 9:13 AM EST [facility] Operative Note [address] Patient Name: Wero Sadler : [id number] MR#: [id number] Case Date: 02/02/2021 Case Scheduled Time: 829 [...] removing the sheath and placing an 20 [address] [place] 3-way Krause catheter. The drainage was clear; therefore, we left the bladder irrigation on standby. The patient tolerated the procedure very well and after adequate recovery, he was transferred to the Recovery Room in stable condition. ATTESTATION: I was present for the entirety of the case. No complication occurred throughout the procedure. TOTAL ENERGY USED: [id number] joules. LASING TIME: 16 minutes and 47 [...] AM EST Office Visit Hematology/Oncology at [address] [phone] Cl Hess MD [facility] [place] [address] [address] HEMATOLOGY AND ONCOLOGY [place], [place] [address] 04/09/2024 10:00 AM EST Infusion Hematology Oncology at [address] [phone] 04/23/2024 9:30 AM EST Office Visit Hematology/Oncology at [address] [phone] Cl Hess MD [facility] [place] [address] [address] HEMATOLOGY AND ONCOLOGY [place], [place] [address] 04/23/2024 10:00 AM EST Infusion Hematology Oncology at [address] [phone] 05/18/2024 4:30 PM EDT TH Visit (TeleHealth) [place] [address] Malachi Rothman MD [facility] [place] [address] 09/24/2024 9:00 AM EDT Office Visit Radiation Oncology at [address] [phone] Ping Moore PA [facility] DR HEMATOLOGY [place] [address] documented as of this encounter Procedures Procedure Name Priority Date/Time Associated Diagnosis Comments MODIFIER,GREENLIGHT LASER 02/02/2021 8:55 AM EST Benign prostatic hyperplasia, unspecified whether lower urinary tract symptoms present Laser Vaporization Surgery Prostate, Complete (73218) 02/02/2021 8:55 AM EST Benign prostatic hyperplasia, unspecified whether lower urinary tract symptoms present POCT GLUCOSE Routine 02/02/2021 8:36 AM EST BASIC METABOLIC PANEL Routine 02/02/2021 8:20 AM EST documented in this encounter Results * POCT Glucose (02/02/2021 8:36 AM EST) Glucose, POC 142 65 - 199 mg/dL [facility] Blood 02/02/2021 8:36 AM EST 02/02/2021 8:36 AM EST Cayetano Engle MD POINT OF CARE TEST O RDERABLES [facility] [address] [place] [address] * (ABNORMAL) Basic Metabolic Panel (non-fasting) (02/02/2021 8:20 AM EST) Glucose 123 65 - 199 mg/dL [facility] Comment:Diabetes: >=200 mg/d L plus symptoms Blood Urea Nitrogen 13 10 - 20 mg/dL [facility] Creatinine 0.51(L) 0.80 - 1.50 mg/dL [facility] Sodium 136 135 - 145 mmol/L [facility] Potassium 4.1 3.5 - 5.0 mmol/L [facility] Comment: Please note: ??Patients with WBC >100,000 may have falsely elevated Potassium levels. ??For accurate Potassium quantification in these patients send serum separator tube (gold top) for subsequent determinations. ??Contact the Clinical Chemistry Laboratory if there are any questions. Chloride 103 98 - 107 mmol/L [facility] Carbon Dioxide 19(L) 22 - 31 mmol/L [facility] Anion Gap 14 5 - 15 mmol/L [facility] Calcium 8.3(L) 8.5 - 10.5 mg/dL [facility] Est Glomerular Filtration Rate 107 >=60 mL/min/1. 73 m?? [facility] Comment: This patient? s estimated [...] Agency Comment Spec In Lab Leah Trejo UNDERGROUND CONDUIT INSTALLER CHEMISTRY ORDERABL ES [facility] [address] [place] [address] documented in this encounter Visit Diagnoses Diagnosis [...] Patient/family refused)175 (Given - Provider: Ale Lou RN)232 (Given - Provider: Ruth Morales, AYE) 05 (Given - Provider: Ruth Morales RN) amLODIPine [...] 200 mL infusion (COMPLETED) 400 mg, Intravenous, CSR TO O.R., 1 dose, On Sat02/02/21 at [...] Starting on Ammy 02/02/21 at 1140, Until 02/03/21 at 1407 0525 (Given - Provid er: [...] Routine documented in this encounter Care Teams Finance Accounting Internship Relationship Specialty Start Date End Date Alo Carey DO [address] [place] [address] [place] [address] PCP - General Internal Medicine 08/31/20 07/03/23 documented as of this encounter
--- OUTSIDE RECORDS SUMMARY | 2024-03-26 10:42 | XMS_ITS | Encounter Summary ---
Author Organization [facility] [place] [address] Care Team Providers Care Digital Proofing And Platemaker Name Role Phone YungAlo santiago Primary Care Provider [phone] Encounter Details Date Type Department Care Team (Late st Contact Info) Description 01/25/2021 Telephone Urology at [facility] [place] [phone] Cayetano Engle MD [facility] [place] [address] Social History Tobacco Use Types Packs/Day Years [...] AM EST Office Visit Hematology/Oncology at [address] [phone] Cl Hess MD [facility] [place] [address] [address] [place] [address] 04/09/2024 10:00 AM EST Infusion Hematology Oncology at [address] [phone] 04/23/2024 9:30 AM EST Office Visit Hematology/Oncology at [address] [phone] Cl Hess MD [facility] [place] [address] [address] [place] [address] 04/23/2024 10:00 AM EST Infusion Hematology Oncology at [address] [phone] 05/18/2024 4:30 PM EDT TH Visit (TeleHealth) [place] [address] Malachi Rothman MD [facility] [place] [address] 09/24/2024 9:00 AM EDT Office Visit Radiation Oncology at [address] [phone] Ping Moore PA [facility] [place] [address] documented as of this encounter Visit Diagnoses Not on filedocumented in this encounter Care Teams Digital Proofing And Platemaker Relationship Specialty Start Date End Date Alo Carey DO [address] [place] [address] [place] [address] PCP - General Internal Medicine 08/31/20 07/03/23 documented as of this encounter
--- OUTSIDE RECORDS SUMMARY | 2024-03-26 10:42 | XMS_ITS | Encounter Summary ---
Author Organization [facility] Address [facility] [place] [address] Care Team Providers Care Greek Professor Name Role Phone YungAlo santiago Primary Care Provider [phone] Reason for Visit * Consultation (YASSINE) - Closed Specialty Diagnoses / Procedures Referred By Marques livingston Referred To Contact Urology Diagnoses Malignant neoplasm of prostate Dr. Myers has requested simultaneous appointments with Dr. Engle and Dr. Naylor -- retention, high risk prostate ca Rock Myers MD [address] [place] [address] Spenser Naylor MD [facility] [place] [address] Referral ID Status Reason Start Date Expiration Date V isits Requested Visits Authorized [id number] Closed Consult, Test & Treat 11/25/2020 11/25/2021 6 6 Encounter Details Date Type Department Care Team ([facility] st Contact Info) Description 01/24/2021 8:40 AM EST TH Visit (TeleHealth) Urology at [facility] [place] [address] Spenser Naylor MD [facility] [place] [address] Malignant neoplasm of prostate Social History Tobacco [...] Results / Location: 07/06/2020 - Dr Mayo ([place], [place] - [facility]) Gl 3+3 in 2 of 12 cores @ right apex (in [place], prior to moving to [place]) ? Pertinent Imaging Studies Independently reviewed: mpMRI [...] chemo in [place] ??? Coronary artery dissection ??? CPAP [...] 20.72) performed by Ismael Wu MD at [facility] MAIN OR Impression: Unfavorable intermediate versus [...] tumor and he at a minimum has [place] 7 disease. With a PSA greater than 20 and Lisa 7 disease that puts him in a [...] AM EST Office Visit Hematology/Oncology at [address] [phone] Cl Hess MD [facility] [place] [address] [address] HEMATOLOGY AND ONCOLOGY [place], [place] [address] 04/09/2024 10:00 AM EST Infusion Hematology Oncology at [address] [phone] 04/23/2024 9:30 AM EST Office Visit Hematology/Oncology at [address] [phone] Cl Hess MD [facility] [place] [address] [address] HEMATOLOGY [place] [address] 04/23/2024 10:00 AM EST Infusion Hematology Oncology at [address] [phone] 05/18/2024 4:30 PM EDT TH Visit (TeleHealth) [place] [address] Malachi Rothman MD [facility] DR [place] [address] 09/24/2024 9:00 AM EDT Office Visit Radiation Oncology at [address] [phone] Ping Moore PA [facility] HEMATOLOGY [place] [address] documented as of this encounter Visit Diagnoses Diagnosis Malignant neoplasm of prostate documented in this encounter Care Teams Greek Professor Relationship Specialty Start Date End Date Alo Carey DO [address] [place] [address] [place] [address] PCP - General Internal Medicine 08/31/20 07/03/23 documented as of this encounter
--- OUTSIDE RECORDS SUMMARY | 2024-03-26 10:42 | XMS_ITS | Encounter Summary ---
Author Organization [facility] [place] [address] Care Team Providers Care Embedded Software Engineer Name Role Phone Alo Carey DO Primary Care Provider [phone] Encounter Details Date Type Department Care Team (Late Contact Info) Description 01/24/2021 Telephone Main OR at [address] [phone] Patricia Zayas Social History Tobacco [...] Office Visit Hematology/Oncology at [address] [phone] Cl Hess MD [facility] [place] [address] [address] HEMATOLOGY AND ONCOLOGY [place], [place] [phone] 04/09/2024 10:00 AM EST Infusion Hematology Oncology at [address] [phone] 04/23/2024 9:30 AM EST Office Visit Hematology/Oncology at [address] [phone] Cl Hess MD [facility] [place] [address] [address] HEMATOLOGY AND ONCOLOGY [place], [place] [phone] 04/23/2024 10:00 AM EST Infusion Hematology Oncology at [address] [phone] 05/18/2024 4:30 PM EDT TH Visit (TeleHealth) [place] [address] Malachi Rothman MD [facility] [place] [address] 09/24/2024 9:00 AM EDT Office Visit Radiation Oncology at [address] [phone] Ping Moore PA [facility] DR [place] [address] documented as of this encounter Visit Diagnoses Not on filedocumented in this encounter Care Teams Embedded Software Engineer Relationship Specialty Start Date End Date Alo Carey DO [address] [place] [address] [place] [address] PCP - General Internal Medicine 08/31/20 07/03/23 documented as of this encounter
--- OUTSIDE RECORDS SUMMARY | 2024-03-26 10:42 | XMS_ITS | Encounter Summary ---
[place] [address] Care Team Providers Care Mixer And Scaler Name Role Phone Cherry Alo Lon RUTHERFORD Primary Care Provider [phone] Reason for Referral * Diagnostic Test (Routine) - Closed Specialty Diagnoses / Procedures Referred By Marques livingston Referred To Contact Radiology Diagnoses Malignant neoplasm of prostate Procedures MRI Pelvis wwo (Prostate) Rock Myers MD [address] [place] [address] [place] [address] Referral ID Status Reason Start Date Expiration Date V isits Requested Visits Authorized [id number] Closed Specialty Service Requested 10/06/2020 04/08/2022 1 1 Reason for Visit * Diagnostic Test (Routine) - Closed Specialty Diagnoses / Procedures Referred By Marques livingston Referred To Contact Radiology Diagnoses Malignant neoplasm of prostate Procedures MRI Pelvis wwo (Prostate) Rock Myers MD [address] [place] [address] [facility] [place] [address] Referral ID Status Reason Start Date Expiration Date V isits Requested Visits Authorized [id number] Closed Specialty Service Requested 10/06/2020 04/08/2022 1 1 Encounter Details Date Type Department Care Team (Late st Contact Info) Description 11/17/2020 2:21 PM EDT - 11/17/2020 11:59 PM EDT Hospital [place] [address] Rock Myers MD [address] [place] [address] Malignant neoplasm of prostate Discharge [...] AM EST Office Visit Hematology/Oncology at [address] [phone] Cl Hess MD [facility] [place] [address] [address] HEMATOLOGY AND ONCOLOGY [place], [place] [address] 04/09/2024 10:00 AM EST Infusion Hematology Oncology at [address] [phone] 04/23/2024 9:30 AM EST Office Visit Hematology/Oncology at [address] [phone] Cl Hess MD [facility] [place] [address] Y[address] Rene[address] [place] [address] 04/23/2024 10:00 AM EST Infusion Hematology Oncology at [address] [phone] 05/18/2024 4:30 PM EDT TH Visit (TeleHealth) [place] [address] Malachi Rothman MD [facility] [place] [address] 09/24/2024 9:00 AM EDT Office Visit Radiation Oncology at [address] [phone] Ping Moore PA [facility] DR HEMATOLOGY [place] [address] documented as of this encounter Procedures Procedure [...] be present) References: Corby S1, Sumanth JH1, Brenner S1, Balbuena C1, Arthur J1, Czarniecki M1, Gold S1, James G1, Rayn K1, Siddiqui MJ1, Wood BJ1, Melendez PA1, Choyke PL1, Turkjb B1. ??A Grading System for the Assessment of Risk of Extraprostatic Extension of Prostate Cancer at Multiparametric MRI. Radiology. 2019 May;290(3):709-719. doi: 10.1148/radiol.7228272243. Epub 2018Mar 25. I have personally reviewed [...] who have questions please contact the health palliative care physician that requested your imaging first. [...] cancer is highly likely tonia present) References: Mehralijaye S1, Sumanth JH1, Brenner S1, Balbuena C1, Arthur J1, Czarniecki M1,Gold S1, James G1, Rayn K1, Siddiqui MJ1, Wood BJ1, Melendez PA1, Kat PL1, Turkjb B1.A Grading System for the Assessment of Risk of Extraprostatic Extension of Prostate Cancer at Multiparametric MRI. Radiology. 2019Mar;290(3):709-719. doi: 10.1148/radiol.3793982016. Epub 2018Mar 25. I have personally reviewed the image(s) and the resident's interpretationand agree with the findings, Madan Angel MD at 11/18/2020 9:54 AM Thank you for letting us participate in the care of this patient. If youare a health care provider and have any questions regarding this report,please contact the number below. For patients who have questions please contactthe health palliative care physician that requested your imaging first. Rock Myers MD IMG MRI ORDERABLES documented in this encounter Visit Diagnoses Diagnosis Malignant neoplasm of prostate documented in this encounter Care Teams Mixer And Scaler Relationship Specialty Start Date End Date Alo Carey DO [address] [place] [address] [place] [phone] PCP - General Internal Medicine 08/31/20 07/03/23 documented as of this encounter
--- OUTSIDE RECORDS SUMMARY | 2024-03-26 10:42 | XMS_ITS | Encounter Summary ---
Author Organization [facility] Address One [facility] [place] [address] Care Team Providers Care Theology Professor Name Role Phone CherryAlo Lon RUTHERFORD Primary Care Provider [phone] Encounter Details Date Type Department Care Team (Latest Contact Info) Description 11/17/2020 11:59 AM EDT - 11/17/2020 2:20 PM EDT Hospital Encounter XRay at [facility] [address] [place] [phone] Primary osteoarthritis of left hip; Left leg [...] AM EST Office Visit Hematology/Oncology at [address] [phone] Cl Hess MD [facility] [place] [address] Yessi Renee APRN [address] [place] [address] DR [place]OLOGY [place] [address] 04/09/2024 10:00 AM EST Infusion Hematology Oncology at [address] [phone] 04/23/2024 9:30 AM EST Office Visit Hematology/Oncology at [address] [phone] Cl Hess MD [facility] [place] [address] Yessi Renee APRN [address] [place] [address] DR HEMATOLOGY AND ONCOLOGY [place], [place] [id number] 04/23/2024 10:00 AM EST Infusion Hematology Oncology at [address] [phone] 05/18/2024 4:30 PM EDT TH Visit (TeleHealth) [place] [address] Malachi Rothman MD [facility] [place] [address] 09/24/2024 9:00 AM EDT Office Visit Radiation Oncology at [address] [phone] Ping Moore PA [facility] [place] [address] documented as of this encounter Procedures Procedure [...] questions please contact the health critical care unit nurse that requested your imaging first. ? [...] have questions please contactthe health critical care unit nurse that requested your imaging first. Ismael Wu MD IMG DX ORDERABLES documented in this encounter Visit Diagnoses Diagnosis Primary osteoarthritis of left hip Primary localized osteoarthrosis, pelvic region and thigh Left leg pain Pain in limb documented in this encounter Care Teams Theology Professor Relationship Specialty Start Date End Date Alo Carey DO [address] [place] [address] [place] [phone] PCP - General Internal Medicine 08/31/20 07/03/23 documented as of this encounter
--- OUTSIDE RECORDS SUMMARY | 2024-03-26 10:42 | XMS_ITS | Encounter Summary ---
Author Organization [facility] [place] [address] Care Team Providers Care Explosive Operator Bomb Name Role Phone YungAlo santiago Primary Care Provider [phone] Encounter Details Date Type Department Care Team (Late st Contact Info) Description 11/17/2020 [place] [address] Ismael Wu MD [facility] [place] [address] Social History Tobacco Use Types Packs/Day Years [...] AM EST Office Visit Hematology/Oncology at [address] [phone] Cl Hess MD [facility] [place] [address] HEMATOLOGY AND ONCOLOGY [place], [place] [address] 04/09/2024 10:00 AM EST Infusion Hematology Oncology at [address] [phone] 04/23/2024 9:30 AM EST Office Visit Hematology/Oncology at [address] [phone] Cl Hess MD [facility] [place] [address] [address] [place] [address] 04/23/2024 10:00 AM EST Infusion Hematology Oncology at [address] [phone] 05/18/2024 4:30 PM EDT TH Visit (TeleHealth) [place] [address] Malachi Rothman MD [facility] [place] [address] 09/24/2024 9:00 AM EDT Office Visit Radiation Oncology at [address] [phone] Ping Moore PA [facility] [place] [address] documented as of this encounter Visit Diagnoses Not on filedocumented in this encounter Care Teams Explosive Operator Bomb Relationship Specialty Start Date End Date Alo Carey DO [address] [place] [address] [place] [phone] PCP - General Internal Medicine 08/31/20 07/03/23 documented as of this encounter
--- OUTSIDE RECORDS SUMMARY | 2024-03-26 10:42 | XMS_ITS | Encounter Summary ---
[place] [address] Care Team Providers Care Laser/Electro Optics Technician Name Role Phone Alo Carey DO Primary Care Provider [phone] Reason for Visit * Reason Comments Injections Lupron * Treatment/Therapy Plan Authorization (Routine) - Pending Review Specialty Diagnoses / Procedures Referred By Marques livingston Referred To Contact Diagnoses Malignant neoplasm of prostate Bigg Peters MD [address] [place] [address] [place] [address] Referral ID Status Reason Start Date Expiration Date V isits Requested Visits Authorized [id number] Pending Review 01/25/2021 01/25/2022 99 99 Encounter Details Date Type Department Care Team (Late st Contact Info) Description 01/31/2021 2:30 PM EST Infusion Hematology Oncology at [address] [phone] Malignant neoplasm of prostate Social History Tobacco [...] AM EST Office Visit Hematology/Oncology at [address] [phone] Cl Hess MD [facility] [place] [address] Yessi Renee APRN [address] [place] [address] DR HEMATOLOGY AND ONCOLOGY [place], [place] [address] 04/09/2024 10:00 AM EST Infusion Hematology Oncology at [address] [phone] 04/23/2024 9:30 AM EST Office Visit Hematology/Oncology at [address] [phone] Cl Hess MD [facility] [place] [address] Yessi Renee APRN [address] [place] [address] DR HEMATOLOGY AND ONCOLOGY [place], [place] [id number] 04/23/2024 10:00 AM EST Infusion Hematology Oncology at [address] [phone] 05/18/2024 4:30 PM EDT TH Visit (TeleHealth) [place] [address] Malachi Rothman MD [facility] [place] [address] 09/24/2024 9:00 AM EDT Office Visit Radiation Oncology at [address] [phone] Ping Moore PA [facility] DR [place] [address] documented as of this encounter Visit Diagnoses [...] Gluteal documented in this encounter Care Teams Laser/Electro Optics Technician Relationship Specialty Start Date End Date Lagoy, Alo T, DO [address] [place] [address] [place] [phone] PCP - General Internal Medicine 08/31/20 07/03/23 documented as of this encounter
--- OUTSIDE RECORDS SUMMARY | 2024-03-26 10:42 | XMS_ITS | Encounter Summary ---
Author [place] [address] Care Team Providers Care Line Repairer Tower Name Role Phone Alo Carey DO Primary Care Provider [phone] Reason for Visit * Auth/Cert Specialty Diagnoses / Procedures Referred By Marques livingston Referred To Contact Diagnoses Left hip osteoarthritis Procedures PRO TOTAL HIP ARTHROPLASTY TOTAL HIP ARTHROPLASTY - POSTERIOR (WRVU 20.72) MODIFIER ACTIS HIP STEM DEPUY MODIFIER PINNACLE ACETABULUM DEPUY Referral ID Status Reason Start Date Expiration Date Visits Re quested Visits Authorized [id number] 1 1 Encounter Details Date Type Department Care Team (Late st Contact Info) Description 10/10/2020 3:25 PM EDT - 10/10/2020 6:55 PM EDT Surgery [place] [id number] Ismael Wu MD [facility] [place] [address] TOTAL HIP ARTHROPLASTY - POSTERIOR (WRVU 19.6) [...] encounter Discharge Summaries * Liz Grimes P, CITRIX ADMINISTRATOR - 10/11/2020 12:39 PM EDT Discharge Summary Patient Name: Wero Sadler Patient Age: 70 y.o. Language: Kuwaiti Race: White Ethnicity: Not nor Admit date: 10/10/2020 Discharge date and time: 10/12/2020 Attending Physician: Ismael Wu MD Discharge Physician: Ismael Wu MD Follow-up Recommendations for Providers: 1. The patient will need to f/u with his Urologist, Dr. Myers, on 10/17/2020, for a voidingtrial. See discharge instructions for additional details. Future Appointments Date Time Provider Department Center 11/17/2020 12:30 PM [facility] DX ROOM 6 Xray [facility] Rad 11/17/2020 1:30 PM Ismael Wu MD [facility] ORTH 3C [facility] Inpatient Provider Contact Information: Ismael Wu MD Orthopedics: [phone] After hours and weekends, call [facility] Machine Maintenance, , and have the Orthopedic resident paged. [...] patients who have questions pleasecontact the health career consultant that requested your imaging first. ay Pelvis [...] have questions please contact the health career consultant that requested your imaging first. ay Hip [...] have questions please contact the health career consultant that requested your imaging first. Electronically signed by:Claudio Ward [facility] ([phone]), at 10/11/2020 8:31 AM XRay Hip 1 [...] have questions please contact the health career consultant that requested your imaging first. Pending Studies and Lab Data at Discharge: None Transfusions: No Discharge Conditions/Prognosis: Stable, awake, and alert. Mobilizing as noted above, pain controlled on oral medications. Discharge to: Home with VNA. Updated Allergies/ADRs: Allergies Allergen Reactions ??? Other [Unclassified Drug] Had reaction to a dye used during vascular procedure at [facility] in [place] Immunizations Given this Hospitalization: There is no [...] bowel movement. You can also take an ievk-xyk-jegopzj medication, Miralax if needed to combat constipation. [...] as much as possible. Call your doctor ([phone]) if you develop: 1. Fever greater than 100.5 2. Severe nausea or vomiting 3. Increasing pain that is not controlled by pain medications 4. Increasing redness, swelling, or drainage from incisions 5. Change in sensation FOLLOW-UP APPOINTMENTS: 1. You will have follow-up appointments at [facility] as indicated below in Future Appointment and Orders. 2. You will need to have x-rays prior to your follow-up appointment on 11/17/2020. Please come to Radiology, desk 3T, 1 hour BEFORE that appointment for these x-rays. Future Appointments Date Time Provider Department Center 11/17/2020 12:30 PM [facility] DX ROOM 6 Xray [facility] Rad 11/17/2020 1:30 PM Ismael Wu MD [facility] ORTH [address] [place] [address] If you have questions or concerns: Saturday through Saturday, 8 AM - 5 PM, please call Dr. Ismael Wu MD's office at . If it is after 5 PM, the weekend, or holidays, please call and ask to speak with theOrthopedic resident on-call. General Instructions None Future Appointments and Orders Future Appointments and Orders Future Appointments Provider Department Dept Phone 11/17/2020 12:30 PM [facility] DX ROOM 6 XRay at [facility] Arrive at: Cardiovascular Or Nurse Area [phone] Please go to Cardiovascular Or Nurse Area (Center Location). 11/17/2020 1:30 PM Ismael Wu MD Orthopaedics at [facility] Arrive at: Cardiovascular Or Nurse Area [phone] Future Orders Complete By Expires Referral to Home Health - at DISCHARGE [[id number] CPT(R)] As directed Process Instructions: Scheduling Instructions: Comments: DOCUMENTATION FOR VNA SERVICES (INCLUDING PATIENTS WITH MEDICARE COVERAGE BEING DISCHARGED HOME WITH VNA SERVICES AND/OR HOSPICE SERVICES) PATIENT'S LOCATION: Wero Sadler Discharge to own home: [address] [place] [address] Validation Intern's Name: self/patient In discussion with the attending physician, it is certified that this patient is under their care and that they, or a nurse practitioner, clinical nurse specialist or physician's assistant professor of marine biology who is working directly with them, had [...] for home health services. [facility] HEALTH [facility]ENCY: [facility] PHONE: [phone] FAX: [phone] Long-Term(SN) eval if indicated on admission visit Witt [...] this patient's PCP: Alo Carey DO [address] [place] [address] All A agencies which cover patient's residence area have been reviewed, either verbally or in writing, and patient/family have chosen the indicated home health agency. Questions: Agency name and contact information: [facility] Patient location post discharge: home What services are requested: Physical Therapy Occupational Therapy Start date: Responsible MD post discharge contact info: Primary Care Provider: Alo Carey DO [phone] Discharge References/Attachments INDWELLING URINARY CATHETER CARE: GENERAL INFO (IRAQI) URINARY RETENTION (IRAQI) documented in this encounter Discharge Instructions * Patient Instructions* Liz Grimes Flores, CITRIX ADMINISTRATOR - 10/11/2020 12:32 PM EDT Activity: 1. [...] bowel movement. You can also take an oigg-xol-zpdrjgv medication, Miralax if needed to combat constipation. [...] as much as possible. Call your doctor ([phone]) if you develop: 1. Fever greater than 100.5 2. Severe nausea or vomiting 3. Increasing pain that is not controlled by pain medications 4. Increasing redness, swelling, or drainage from incisions 5. Change in sensation FOLLOW-UP APPOINTMENTS: 1. You will have follow-up appointments at [facility] as indicated below in Future Appointment and Orders. 2. You will need to have x-rays prior to your follow-up appointment on 11/17/2020. Please come to Radiology, desk 3T, 1 hour BEFORE that appointment for these x-rays. Future Appointments Date Time Provider Department Center 11/17/2020 12:30 PM [facility] DX ROOM 6 Xray [facility] Rad 11/17/2020 1:30 PM Ismael Wu MD [facility] ORTH 3C [facility] If you have questions or concerns: Saturday through Saturday, 8 AM - 5 PM, please call Dr. Ismael Wu MD's office at . If it is after 5 PM, the weekend, or holidays, please call and ask to speak with theOrthopedic resident on-call. * Attachments The following attachments cannot be sent through Care Everywhere. * INDWELLING URINARY CATHETER CARE: GENERAL INFO (IRAQI) * URINARY RETENTION (IRAQI) documented in this encounter Medications at Time [...] ??? sodium chloride 0.9% 1,000 mL (10/12/20 3578) OBJECTIVE: Temp: [36.6 ??C (97.9 ??F)-36.9 ??C [...] Time Provider Department Center 11/17/2020 12:30 PM [facility] DX ROOM 6 MH Xray [facility] Rad 11/17/2020 1:30 PM Ismael Wu MD [facility] ORTH 3C [facility] Associated attestation - Ismael Wu [...] Wu MD, MSc Division of Adult Reconstructive Hospice Registered NurseSack Filler of Orthopaedics Department of Orthopaedics [facility] [address] [email or web address] * Savanah Guadalupe RN - 10/11/2020 5:44 [...] running. Tolerating carb control diet well. LBM MOBILE APPLICATION TESTER. Blood glucose elevated, controlled with insulin. Straight [...] 20.72) performed by Ismael Wu MD at [facility] MAIN OR Active Non-Hospital Problems Diagnosis ??? [...] precautions (no adduction, internal rotation, or flexion [id number] degrees, wedge at night) Mobility and Positioning [...] for this consult. Time IN / OUT: 8954-8532 Total Minutes, Physical Therapy: 40 (low complexity) [...] 20.72) performed by Ismael Wu MD at [facility] MAIN OR Social History: Patient lives with [...] He reports he has an appointment w/ [place] [employer] and may get a white cane, has areader Communication: WFL Range of motion, strength, coordination: Hand dominance: right Bilateral UEs are within functional limitations LE limitations: s/p L JIMI, enhanced precautions Activities of Daily Living: Self-feeding: seated w/ setup Grooming: standing w/ CGA to SBA and FWW, cue for squaring up Dressing: LB dressing: issued a computational physicist and soft sockaid, though had difficulty using a soft sockaid (hard sockaids out of stock here)-reported he doesn't wear socks very much and can have assist fornow; donned pants w/ computational physicist and cues for technique, difficult w/ suspenders [...] and measurable assessment of functional outcome. Pager: [phone] DANNI ORONA OT 10/11/2020 Occupational Therapy Rehabilitation [...] unit/mL) subcutaneous injection vial 1-4 Units ??? [id number] ketamine or placebo 250 mg in sodium chloride 0.9% 250 mL infusion AND INV [id number] patient's specific infusion med #2 1 each ??? sodium chloride 0.9% 1,000 mL (10/10/202132) ??? I34340 ketamine 100 mg/mL or placebo in sodium chloride 0.9% 500 mL infusion Stopped (10/10/202024) And ??? INV [id number] patient's specific infusion med #2 OBJECTIVE: Temp: [...] Time Provider Department Center 11/17/2020 12:30 PM [facility] DX ROOM 6 Xray [facility] Rad 11/17/2020 1:30 PM Ismael Wu MD [facility] ORTH [address] [place] [address] Associated attestation - Ismael Wu MD - [...] Wu MD, MSc Division of Adult Reconstructive Hospice Registered NurseSack Filler of Orthopaedics Department of Orthopaedics [facility] [address] [email or web address] * Cayetano Tobar MD - 10/11/2020 12:40 [...] unit/mL) subcutaneous injection vial 1-4 Units ??? [id number] ketamine or placebo 250 mg in sodium chloride 0.9% 250 mL infusion AND INV [id number] patient's specific infusion med #2 1 each ??? sodium chloride 0.9% 1,000 mL (10/10/202132) ??? [id number] ketamine 100 mg/mL or placebo in sodium chloride 0.9% 500 mL infusion Stopped (10/10/202024) And ??? INV [id number] patient's specific infusion med #2 OBJECTIVE: Temp: [...] Time Provider Department Center 11/17/2020 12:30 PM [facility] DX ROOM 6 MH Xray [facility] Rad 11/17/2020 1:30 PM Ismael Wu MD [facility] ORTH 3C [facility] Associated attestation - Ismael Wu MD - 10/12/2020 9:53 AM EDT Images from the original note were not included. Department of Orthopaedics Division of Adult Joint Reconstructive Surgery October 12, 2020 I had the pleasure of evaluating Wero aSdler in the hospital in conjunction with Dr. Tobar. I haveseen and examined the patient and reviewed the history/physical and I agree with the details as written. The assessment and plan were formulated in discussion with me and I agree with them as documented. Ismael Wu MD, MSc Division of Adult Reconstructive Hospice Registered NurseSack Filler of Orthopaedics Department of Orthopaedics [facility] [address] [email or web address] * Junaid Diallo RN - 10/10/2020 11:19 [...] Wu MD, MSc Division of Adult Reconstructive Hospice Registered NurseSack Filler of Orthopaedics Department of Orthopaedics [facility] [address] [email or web address] documented in this encounter Miscellaneous Notes * [...] care provider on file: Alo Carey DO [phone] Advance Directive on file and Code Status: [...] post-op care and support: (P) Brother and Iwkfrf-lq-bco (Damian Sadler and Yaquelin) Who will provide transportation home: (P) Brother (Damian Sadler) Patient's desired discharge disposition: (P) Home with VNA Top 3 nursing choice facilities: (P) None VNA preference: (P) TBD Outpatient PT preference: (P) [facility] PT Discharge barriers and challenges: (P) None ?? The patient prefers two-wheeled walker to help with post-operative ambulation. The patient has a walker and will bring it to surgery. Functional Status prior to admission:independent with ADLs and mobility Functional Status current: assist of staff Living Situation: [address] [facility] [address] Supports: patient has two brothers who are [...] referrals are placed. Patient requests referral to [facility]. PHONE: [phone] FAX: [phone] Expected date of discharge: today Referral routed to the Lead Php Developer for matching with agency/vendor and to provide [...] home via private car when medically ready. fabric lay out worker/Government Contracts Manager will continue to follow patient???s progress and remain available if situation changes for coordination of care, psychosocial support and/or discharge planning. Patricia Ramirez, RN, [facility] Pager [phone] * Op Note - Ismael Wu MD - 10/10/2020 5:49 PM EDT [facility] Operative Note Patient Name: Wero Sadler : [id number] MR#: [id number] Case Date: 10/10/2020 Surgeon: Surgeon(s) and Role: [...] offset, Size 7; collared, SCOTT coated Acetabulum: Alta size 60mm Liner: 36 x 60 neutral liner Femoral Head: 36mm +1.5mm ceramic head Implant Type Status Implanted on Explanted on Expires on Delete SHELL ACET HIP 60MM POR CTD MULTI HOLE TI PINNACLE GRIPTION ([id number]) (AUTOREQ) - [id number] IMPLANTS Implanted 10/10/2020 07/01/2030 LINER ACET HIP [id number] STND POLY PINNACLE ALTRX ([id number]) (AUTOREQ) - [id number] IMPLANTS Implanted10/10/2020 08/31/2025 HEAD FEMORAL HIP 36MM +1.5MM OFFSET 11/13 TAPER CERAMIC ([id number]) (AutoReq) - [id number] IMPLANTS Implanted 10/10/2020 07/01/2025 STEM FEMORAL HIP SZ 7 PROX 02/14 TAPER POR CLLR HIGH OFST TI ([id number]) (AutoReq) - [id number] IMPLANTS Implanted 10/10/2020 08/31/2030 PATIENT HISTORY: The [...] and found to be appropriate with good congregation of leg length and offset. A intraoperative x ray was taken and confirmed appropriate sizing and positioning of implants along with proper congregation of leg length and offset. The hip [...] patient was then awoken, transferred to the [facility] and taken to the PACU in [...] Joint Protocol If the assistant professor of marine biology surgeon is other than a qualified resident, [...] AM EST Office Visit Hematology/Oncology at [address] [address] Cl Hess MD [facility] [place] [address] HEMATOLOGY [place] [address] 04/09/2024 10:00 AM EST Infusion Hematology Oncology at [address] [address] 04/23/2024 9:30 AM EST Office Visit Hematology/Oncology at [address] [address] Cl Hess MD [facility] [place] [address] [address] HEMATOLOGY [place] [address] 04/23/2024 10:00 AM EST Infusion Hematology Oncology at [address] [address] 05/18/2024 4:30 PM EDT TH Visit (TeleHealth) [place] [address] Malachi Rothman MD [facility] [place] [address] 09/24/2024 9:00 AM EDT Office Visit Radiation Oncology at [address] [address] Ping Moore PA [facility] [address] [place] [address] documented as of this encounter Procedures Procedure [...] left hip Arthroplasty Acetabular/Prox Fem Prostc Agrft/Algrft (72232) 10/10/2020 4:43 PM EDT Primary osteoarthritis of left hip POCT GLUCOSE Routine 10/10/2020 3:20 PM EDT TOTAL HIP ARTHROPLASTY - POSTERIOR Routine 10/10/2020 2:13 PM EDT Primary osteoarthritis of left hip IMPLANTABLE DEVICES SCAN 10/10/2020 12:00 AM EDT documented in this encounter Results * POCT Glucose (10/12/2020 12:10 PM EDT) [facility] Signature Glucose, POC 129 65 - 199 mg/dL [facility] Comment: Supplemental ranges: <140 mg/dL before meals <180 mg/dL all other times of the day Blood 10/12/2020 12:1 0 PM EDT 10/12/2020 12:10 PM EDT Ismael Wu MD POINT OF CARE TEST ORDERABLES [facility] [place] [address] * POCT Glucose (10/12/2020 7:57 AM EDT) Glucose, POC 147 65 - 199 mg/dL [facility] Comment: Supplemental ranges: <140 mg/dL before meals <180 mg/dL all other times of the day Blood 10/12/2020 7:57 AM EDT 10/12/2020 7:57 AM EDT Ismael Wu MD POINT OF CARE TEST ORDERABLES Performing Organization Address [facility] Co de Phone Number [facility] [place] [address] * POCT Glucose (10/12/2020 3:22 AM EDT) Glucose, POC 154 65 - 199 mg/dL [facility] Comment: Supplemental ranges: <140 mg/dL before meals <180 mg/dL all other times of the day Blood 10/12/2020 3:22 AM EDT 10/12/2020 3:22 AM EDT Ismael Wu MD POINT OF CARE TEST ORDERABLES Performing Organization Address City/[facility]/ZIP Co de Phone Number [facility] [place] [address] * POCT Glucose (10/11/2020 11:14 PM EDT) Glucose, POC 180 65 - 199 mg/dL [facility] Comment: Supplemental ranges: <140 mg/dL before meals <180 mg/dL all other times of the day Blood 10/11/2020 11:1 4 PM EDT 10/11/2020 11:14 PM EDT Ismael Wu MD POINT OF CARE TEST ORDERABLES [facility] [place] [address] * (ABNORMAL) POCT Glucose (10/11/2020 7:53 PM EDT) Glucose, POC 208(H) 65 - 199 mg/dL [facility] Comment: Supplemental ranges: <140 mg/dL before meals <180 mg/dL all other times of the day Blood 10/11/2020 7:53 PM EDT 10/11/2020 7:53 PM EDT Ismael Wu MD POINT OF CARE TEST ORDERABLES Performing Organization Address City/[facility]/ZIP Co de Phone Number [facility] [place] [address] * POCT Glucose (10/11/2020 4:34 PM EDT) Glucose, POC 153 65 - 199 mg/dL [facility] Comment: Supplemental ranges: <140 mg/dL before meals <180 mg/dL all other times of the day Blood 10/11/2020 4:34 PM EDT 10/11/2020 4:34 PM EDT Ismael Wu MD POINT OF CARE TEST ORDERABLES [facility] [place] [address] * (ABNORMAL) POCT Glucose (10/11/2020 11:47 AM EDT) Glucose, POC 226(H) 65 - 199 mg/dL [facility] Comment: Supplemental ranges: <140 mg/dL before meals <180 mg/dL all other times of the day Blood 10/11/2020 11:4 7 AM EDT 10/11/2020 11:47 AM EDT Ismael Wu MD POINT [place] [address] * (ABNORMAL) Differential, Automated (10/11/2020 10:43 AM EDT) [facility] Neutrophil % 84.5 % [facility] Neutrophil Absolute 11.42(H) 1.70 - 6.10 x10(3)/ L [facility] Lymph % 7.8 % [facility] Lymphocytes Abs 1.1 0.9 - 3.2 x10(3)/ L [facility] Monocyte % 7.2 % [facility] Monocyte Abs 1.0(H) 0.3 - 0.9 x10(3)/ L [facility] Eos % 0.0 % [facility] Eosinophils Abs 0.0 0.0 - 0.4 x10(3)/[facility] Basophil % 0.1 % [facility] Baso Absolute 0.0 0.0 - 0.1 x10(3)/ L [facility] Immature [...] Absolute 0.06(H) 0.00 - 0.04 x10(3)/ L [facility] Blood 10/11/2020 10:4 3 AM EDT 10/11/2020 11:09 AM EDT Narrative Resulting Agency Comment Spec In Lab Liz Grimes APRN [place] [address] * (ABNORMAL) Hemogram (10/11/2020 10:43 AM EDT) White Blood Cell 13.5(H) 4.0 - 9.5 x10(3)/mc L [facility] Red Blood Cell 3.87(L) 4.58 - 5.54 x10(6)/mc L [facility] Hemoglobin 12.4(L) 13.7 - 16.5 [...] HOSPITAL LABORATORY Platelet 187 145 - 357 x10(3)/[facility] RDW Standard Deviation 44.4 36.0 - 45.0 [facility]ATORY RDW coefficient of variation 13.0 11.4 - 13.8 % [facility] Mean Platelet Volume 10.3 7.6 - 12.9 [facility] LABORATORY NRBC% auto 0.0 % [facility] NRBC Absolute 0.000 0.000 - 0.000 x10(3)/[facility]ATORY Blood 10/11/2020 10:4 3 AM EDT 10/11/2020 11:09 AM EDT Narrative Resulting Agency Comment Spec In Lab Liz Grimes CITRIX ADMINISTRATOR HEMATOLOGY ORDERABL ES [facility] [place] [address] * (ABNORMAL) Basic Metabolic Panel (non-fasting) (10/11/2020 [...] Lab Liz Grimes APRN CHEMISTRY ORDERABLE S [facility] [place] [address] * (ABNORMAL) POCT Glucose (10/11/2020 7:36 AM EDT) Glucose, POC 254(H) 65 - 199 mg/dL [facility] Comment: Supplemental ranges: <140 mg/dL before meals <180 mg/dL all other times of the day Blood 10/11/2020 7:36 AM EDT 10/11/2020 7:36 AM EDT Ismael Wu MD POINT OF CARE TEST ORDERABLES Performing Organization Address City/[facility]/ZIP Co de Phone Number [facility] [place] [address] * POCT Glucose (10/11/2020 3:36 AM EDT) Glucose, POC 199 65 - 199 mg/dL [facility] Comment: Supplemental ranges: <140 mg/dL before meals <180 mg/dL all other times of the day Blood 10/11/2020 3:36 AM EDT 10/11/2020 3:36 AM EDT Ismael Wu MD POINT OF CARE TEST ORDERABLES Performing Organization Address [facility]/ZIP Co de Phone Number [facility] [place] [address] * POCT Glucose (10/11/2020 12:02 AM EDT) Glucose, POC 189 65 - 199 mg/dL [facility] Comment: Supplemental ranges: <140 mg/dL before meals <180 mg/dL all other times of the day Blood 10/11/2020 12:0 2 AM EDT 10/11/2020 12:02 AM EDT Ismael Wu MD POINT OF CARE TEST ORDERABLES Performing Organization Address City/[facility]/ZIP Co de Phone Number [facility] [place] [address] * XR Pelvis (Generic) (10/10/2020 9:46 PM [...] have questions please contact the health career consultant that requested your imaging first. ? Narrative [...] who have questions please contactthe health career consultant that requested your imaging first. Ismael Wu [...] OF CARE TEST ORDERABLES Performing Organization Address City/State/[facility] Co de Phone Number [facility] [place] [address] * XR Hip 1 view Left (10/10/2020 [...] have questions please contact the health career consultant that requested your imaging first. ? Narrative [...] who have questions please contactthe health career consultant that requested your imaging first. Ismael Wu [...] have questions please contact the health career consultant that requested your imaging first. ? Narrative [...] who have questions please contactthe health career consultant that requested your imaging first. Ismael Wu [...] have questions please contact the health career consultant that requested your imaging first. ? Narrative [...] who have questions please contactthe health career consultant that requested your imaging first. Ismael Wu MD IMG DX ORDERABLES * POCT Glucose (10/10/2020 3:20 PM EDT) [facility] Glucose, POC 119 65 - 199 mg/dL [facility] Comment: Supplemental ranges: <140 mg/dL before meals <180 mg/dL all other times of the day Blood 10/10/2020 3:20 PM EDT 10/10/2020 3:20 PM EDT Ismael Wu MD POINT OF CARE TEST ORDERABLES [facility] [place] [address] * SCAN DOC: IMPLANTABLE DEVICES (10/10/2020 12:00 [...] 0830 (Given - Provider: Savanah Guadalupe RN) atorvastatin (Lipitor) tablet 40 mg 40 [...] Judith Huerta RN)223 (Stopped - Provider: Junaid Diallo RN) 0608 (New Bag - Provider: Qian Santiago RN)0638 (Stopped - Provider: Savanah Guadalupe RN)1312 (New Bag - Provider: Savanah Guadalupe RN)1342 (Stopped - Provider: Savanah Guadalupe RN) celecoxib (CeleBREX) capsule 200 mg 200 mg, Oral, 2 TIMES DAILY, First dose on Sat10/11/20 at 0900, Until Discontinued, Routine 0854 (Given - Provider: Linsey Zavala LPN)2005 (Given - Provider: Boone Gonzalez RN) 08 (Given - Provider: Savanah Guadalupe RN) celecoxib (CeleBREX) capsule 400 mg (COMPLETED) 400 mg, Oral, ONCE, 1 dose, On Sat10/10/20 at 1500, Administer on arrival to Same Day Program, Day of Surgery (Day of Procedure), Routine 1453 (Given - Provider: Therese Thomas RN) clopidogreL (Plavix) tablet 75 mg (COMPLETED) 75 mg, Oral, ONCE, 1 dose, On Sat10/11/20 at 0700, Routine 607 (Given - Provider: Qian Santiago RN) clopidogreL (Plavix) tablet 75 mg 75 mg, Oral, DAILY, First dose on Sat10/12/20 at 0900, Until Discontinued, Routine 827 (Given - Provider: Savanah Guadalupe RN) [id number] ketamine 10 mg/mL or placebo injection 57 [...] dose if patient is not eating., Routine 07 (Given - Provider: Savanah Guadalupe RN) 06 (Given - Provider: Boone Gonzalez RN) insulin [...] - Provider: Junaid Diallo RN - Comment: [phone] (Given - Provider: Qian Santiago RN)0858 (Given [...] Reason: Patient/family refused)2006 (Given - Provider: Boone Gonzalez, AYE) 08 (Given - Provider: Savanah Guadalupe RN) sodium chloride 0.9 % (flush) (BD PosiFlush Normal Saline 0.9) flush 5 mL 5 mL, Intravenous, 2 TIMES DAILY, First dose on Sat10/11/20 at 0900, Until Discontinued, Recovery (Recovery-Hospital Unit), Routine 0937 (Given - Provider: Savanah Guadalupe RN)2008 (Given - Provider: Boone Gonzalez, AYE) 829 (Given - Provider: Savanah Guadalupe RN) sodium [...] RN) Continuous Medication Order 10/10/2020 10/11/2020 10/12/2020 [id number] ketamine or placebo 250 mg in sodium [...] AYE) 0428 (New Bag - Provider: Boone Gonzalez [...] Unit), Routine Linked Groups Order Group 1: [id number] ketamine 10 mg/mL or placebo injection 57 [...] by Dr. Rodrick Chisholm. Acknowledged And INV [id number] patient's specific med #2 1 each () [...] mg/dL in 2 hours., Routine Group 4: [id number] ketamine or placebo 250 mg in sodium chloride 0.9% 250 mL infusion (CANCELED)Jump to med 5 mcg/kg/min ? 114.8 kg (34.44 mL/hr, rounded to 34.4 mL/hr), Intravenous, CONTINUOUS, Starting on Sat10/10/20 at 0700, Until Sat10/12/20 at 0611, 0.5 mg/kg bolus followed by a 5 mcg/kg/min continuous infusion. total dose (bolus plus continuous infusion) should not exceed 500 mg And INV [id number] patient's specific infusion med #2 1 each [...] Unit) documented in this encounter Care Teams Line Repairer Tower Relationship Specialty Start Date End Date Alo Carye DO [address] [place] [address] [place] [id number] PCP - General Internal Medicine 08/31/20 07/03/23 documented as of this encounter
--- OUTSIDE RECORDS SUMMARY | 2024-03-26 10:42 | XMS_ITS | Encounter Summary ---
Author Organization Formerly [facility] [place] [address] Care Team Providers Care Jewel Lathe Operator Name Role Phone Alo Carey DO Primary Care Provider [phone] Encounter Details Date Type Department Care Team (Late st Contact Info) Description 01/16/2021 Ancillary Procedure Radiology Library at [facility] [place] [address] Alo Carey DO [address] [place] [phone] Social History Tobacco Use Types Packs/Day [...] AM EST Office Visit Hematology/Oncology at [address] [phone] Cl Hess MD [facility] [place] [address] HEMATOLOGY AND ONCOLOGY [place], [place] [id number] 04/09/2024 10:00 AM EST Infusion Hematology Oncology at [address] [phone] 04/23/2024 9:30 AM EST Office Visit Hematology/Oncology at [address] [phone] Cl Hess MD [facility] [address] [address] HEMATOLOGY AND ONCOLOGY [place], [place] [id number] 04/23/2024 10:00 AM EST Infusion Hematology Oncology at [address] [phone] 05/18/2024 4:30 PM EDT TH Visit (TeleHealth) [place] [address] Malachi Rothman MD [facility] [address] 09/24/2024 9:00 AM EDT Office Visit Radiation Oncology at [address] [phone] Ping Moore PA [facility] [place] [address] documented as of this encounter Procedures Procedure Name Priority Date/Time Associated Diagnosis Comments FILM LIBRARY STORAGE ONLY MR ABDOMEN Routine 01/16/2021 12:00 AM EST documented in this encounter Results * Film Library- Storage Only MR Abdomen (01/16/2021 12:00 AM EST) Narrative EUFEMIA - 02/09/2021 11:34 AM EST This exam is auto-finalizing. It's purpose is for storage only. Alo Carey DO Rk FILM LIBRARY ORD ERABLES [place], [place] documented in this encounter Visit Diagnoses Not on filedocumented in this encounter Care Teams Jewel Lathe Operator Relationship Specialty Start Date End Date Alo Carey DO [address] [place] [address] LEVAR Delarosa [phone] PCP - General Internal Medicine 08/31/20 07/03/23 documented as of this encounter
--- OUTSIDE RECORDS SUMMARY | 2024-03-26 10:42 | XMS_ITS | Encounter Summary ---
Author Organization [facility] [place] [address] Care Team Providers Care Furnace Repair Mechanic Name Role Phone Alo Carey DO [...] Expiration Date Visits Re quested Visits Authorized [id number] 1 Encounter Details Date Type Department Care Team (Latest Contact Info) Description 10/10/2020 1:06 PM EDT - 10/12/2020 1:18 PM EDT Hospital Encounter [address] [place] [address] Ismael Wu MD [facility] OR[place]OP[place]ED[place] [address] Primary osteoarthritis of left hip; s/p L [...] this encounter Discharge Summaries * Liz Grimes, CRYOGENICS ENGINEER - 10/11/2020 12:39 PM EDT Discharge Summary Patient Name: Wero Sadler Patient Age: 70 y.o. Language: Rwandan Race: White Ethnicity: Not nor Admit date: 10/10/2020 Discharge date and time: 10/12/2020 Attending Physician: Ismael Wu MD Discharge Physician: Ismael Wu MD Follow-up Recommendations for Providers: 1. The patient will need to f/u with his Urologist, Dr. Myers, on 10/17/2020, for a voidingtrial. See discharge instructions for additional details. Future Appointments Date Time Provider Department Center 11/17/2020 12:[address] [facility] DX ROOM [address] [facility] Rad 11/17/2020 1:30 PM Ismael Wu MD [facility]C [facility] Inpatient Provider Contact Information: Ismael Wu MD Orthopedics: [phone] After hours and weekends, call [facility] Disease Case Manager, , and have the Orthopedic resident [...] patients who have questions pleasecontact the health health care manager that requested your imaging first. Electronically signed by: [facility] ([phone]), at 10/11/2020 8:33 AM XRay Pelvis (Generic) [...] questions please contact the health health care manager that requested your imaging first. Electronically signed by: Claudio [facility] [place] ([phone]), at 10/11/2020 8:30 AM XRay Hip 1 [...] questions please contact the health health care manager that requested your imaging first. Electronically signed by:Claudio Ward [facility] [place] ([phone]), at 10/11/2020 8:31 AM XRay Hip 1 [...] questions please contact the health health care manager that requested your imaging first. Pending Studies and Lab Data at Discharge: None Transfusions: No Discharge Conditions/Prognosis: Stable, awake, and alert. Mobilizing as noted above, pain controlled on oral medications. Discharge to: Home with VNA. Updated Allergies/ADRs: Allergies Allergen Reactions ??? Other [Unclassified Drug] Had reaction to a dye used during vascular procedure at [facility] in [place] Immunizations Given this Hospitalization: There is no [...] bowel movement. You can also take an crcg-zgo-szkihqw medication, Miralax if needed to combat constipation. [...] as much as possible. Call your doctor ([phone]) if you develop: 1. Fever greater than 100.5 2. Severe nausea or vomiting 3. Increasing pain that is not controlled by pain medications 4. Increasing redness, swelling, or drainage from incisions 5. Change in sensation FOLLOW-UP APPOINTMENTS: 1. You will have follow-up appointments at [facility] as indicated below in Future Appointment and Orders. 2. You will need to have x-rays prior to your follow-up appointment on 11/17/2020. Please come to Radiology, desk 3T, 1 hour BEFORE that appointment for these x-rays. Future Appointments Date Time Provider Department Center 11/17/2020 12:[address] [facility] DX ROOM [address] [facility] Rad 11/17/2020 1:30 PM Ismael Wu MD [facility] [place] [address] [place] [address] If you have questions or concerns: Saturday through Saturday, 8 AM - 5 PM, please call Dr. Ismael Wu MD's office at . If it is after 5 PM, the weekend, or holidays, please call and ask to speak with theOrthopedic resident on-call. General Instructions None Future Appointments and Orders Future Appointments and Orders Future Appointments Provider Department Dept Phone 11/17/2020 12:[address] [facility] DX ROOM 6 XRay at [facility] Arrive at: [facility] Area [phone] Please go to [facility] ([place] Location). 11/17/2020 1:30 PM Ismael Wu MD Orthopaedics at [facility] Arrive at: [facility] [phone] Future Orders Complete By Expires Referral to Home Health - at DISCHARGE [[id number] CPT(R)] As directed Process Instructions: Scheduling Instructions: Comments: DOCUMENTATION FOR [facility] SERVICES (INCLUDING PATIENTS WITH MEDICARE COVERAGE BEING DISCHARGED HOME WITH VNA SERVICES AND/OR HOSPICE SERVICES) PATIENT'S LOCATION: Wero Sadler Discharge to own home: [address] [place] [address] Glass Sander Belt's Name: self/patient In discussion with the attending physician, it is certified that this patient is under their care and that they, or a nurse practitioner, clinical nurse specialist or physician's life science research assistant who is working directly with them, [...] home health services. [facility]ENCY: [facility] PHONE: [phone] FAX: [phone] Jail(SN) eval if indicated on admission visit Witt [...] patient's PCP: Alo Carey DO [address] [place] [address] All A agencies which cover patient's residence area have been reviewed, either verbally or in writing, and patient/family have chosen the indicated home health agency. Questions: Agency name and contact information: [facility] Patient location post discharge: home What services are requested: Physical Therapy Occupational Therapy Start date: Responsible MD post discharge contact info: Primary Care Provider: Alo Carey DO [phone] Discharge References/Attachments INDWELLING URINARY CATHETER CARE: GENERAL INFO (MACANESE) URINARY RETENTION (MACANESE) documented in this encounter Discharge Instructions * Patient Instructions* Liz Grimes Flores, CRYOGENICS ENGINEER - 10/11/2020 12:32 PM EDT Activity: 1. [...] bowel movement. You can also take an fvyr-wok-shwxbvz medication, Miralax if needed to combat constipation. [...] as much as possible. Call your doctor ([phone]) if you develop: 1. Fever greater than 100.5 2. Severe nausea or vomiting 3. Increasing pain that is not controlled by pain medications 4. Increasing redness, swelling, or drainage from incisions 5. Change in sensation FOLLOW-UP APPOINTMENTS: 1. You will have follow-up appointments at [facility] as indicated below in Future Appointment and Orders. 2. You will need to have x-rays prior to your follow-up appointment on 11/17/2020. Please come to Radiology, desk 3T, 1 hour BEFORE that appointment for these x-rays. Future Appointments Date Time Provider Department Center 11/17/2020 12:[address] [facility] DX ROOM [address] [facility] Rad 11/17/2020 1:30 PM Ismael Wu MD [facility] [place] [address] [place] [address] If you have questions or concerns: Saturday through Saturday, 8 AM - 5 PM, please call Dr. Ismael Wu MD's office at . If it is after 5 PM, the weekend, or holidays, please call and ask to speak with theOrthopedic resident on-call. * Attachments The following attachments cannot be sent through Care Everywhere. * INDWELLING URINARY CATHETER CARE: GENERAL INFO (MACANESE) * URINARY RETENTION (MACANESE) documented in this encounter Medications at Time [...] Time Provider Department Center 11/17/2020 12:[address] [facility] DX ROOM [address] [facility] Rad 11/17/2020 1:30 PM Ismael Wu MD [facility] [place] [address] [place] [address] Associated attestation - Ismael Wu MD - [...] Wu MD, MSc Division of Adult Reconstructive Signal MaintainerAccountant Supervisor of Orthopaedics Department of Orthopaedics [facility] [address] [email or web address] * Savanah Guadalupe RN - [...] running. Tolerating carb control diet well. LBM C.O.D. BILLER. Blood glucose elevated, controlled with insulin. Straight [...] performed by Ismael Wu MD at [facility] MAIN OR Active Non-Hospital Problems [...] for this consult. Time IN / OUT: 6709-5169 Total Minutes, Physical Therapy: 40 (low complexity) [...] performed by Ismael Wu MD at [facility] MAIN OR Social History: Patient [...] squaring up Dressing: LB dressing: issued a custom ski maker and soft sockaid, though had difficulty using a soft sockaid (hard sockaids out of stock here)-reported he doesn't wear socks very much and can have assist fornow; donned pants w/ custom ski maker and cues for technique, difficult w/ suspenders [...] and measurable assessment of functional outcome. Pager: [phone] DANNI ORONA OT 10/11/2020 Occupational Therapy Rehabilitation [...] unit/mL) subcutaneous injection vial 1-4 Units ??? [id number] ketamine or placebo 250 mg in sodium chloride 0.9% 250 mL infusion AND INV [id number] patient's specific infusion med #2 1 each ??? sodium chloride 0.9% 1,000 mL (10/10/202132) ??? [id number] ketamine 100 mg/mL or placebo in sodium chloride 0.9% 500 mL infusion Stopped (10/10/202024) And ??? INV [id number] patient's specific infusion med #2 OBJECTIVE: Temp: [...] Time Provider Department Center 11/17/2020 12:[address] [facility] DX ROOM [address] [facility] Rad 11/17/2020 1:30 PM Ismael Wu MD [facility]C [facility] Associated attestation - Ismael Wu MD - [...] Wu MD, MSc Division of Adult Reconstructive Signal MaintainerAccountant Supervisor of Orthopaedics Department of Orthopaedics [facility] [address] [email or web address] * Cayetano Tobar MD - [...] unit/mL) subcutaneous injection vial 1-4 Units ??? [id number] ketamine or placebo 250 mg in sodium chloride 0.9% 250 mL infusion AND INV [id number] patient's specific infusion med #2 1 each ??? sodium chloride 0.9% 1,000 mL (10/10/202132) ??? [id number] ketamine 100 mg/mL or placebo in sodium chloride 0.9% 500 mL infusion Stopped (10/10/202024) And ??? INV [id number] patient's specific infusion med #2 OBJECTIVE: Temp: [...] Time Provider Department Center 11/17/2020 12:[address] [facility] DX ROOM [address] [facility] Rad 11/17/2020 1:30 PM Ismael Wu MD [facility] [place] [address] [place] [address] Associated attestation - Ismael Wu MD - [...] Wu MD, MSc Division of Adult Reconstructive Signal MaintainerAccountant Supervisor of Orthopaedics Department of Orthopaedics [facility] [address] [email or web address] * Junaid Diallo RN - [...] Wu MD, MSc Division of Adult Reconstructive Signal MaintainerAccountant Supervisor of Orthopaedics Department of Orthopaedics [facility] [address] [email or web address] documented in this encounter Miscellaneous [...] care provider on file: Alo Carey DO [phone] Advance Directive on file and Code Status: [...] post-op care and support: (P) Brother and [id number] (Damian Sadler and Yaquelin) Who will provide transportation home: (P) Brother (Damian Sadler) Patient's desired discharge disposition: (P) Home with VNA Top 3 nursing choice facilities: (P) None VNA preference: (P) TBD Outpatient PT preference: (P) [facility] PT Discharge barriers and challenges: (P) None ?? The patient prefers two-wheeled walker to help with post-operative ambulation. The patient has a walker and will bring it to surgery. Functional Status prior to admission:independent with ADLs and mobility Functional Status current: assist of staff Living Situation: [address] [facility] [address] Supports: patient has two brothers who are [...] referrals are placed. Patient requests referral to [facility]. PHONE: [phone] FAX: [phone] Expected date of discharge: today Referral routed to the Executive Steward for matching with agency/vendor and to provide [...] home via private car when medically ready. director airport operations/Exercise Scientist will continue to follow patient???s progress and remain available if situation changes for coordination of care, psychosocial support and/or discharge planning. Patricia Ramirez, AYE, [facility] Pager [phone] * Op Note - Ismael Wu MD - 10/10/2020 5:49 PM EDT [facility] Operative Note Patient Name: Wero Sadler : [id number] MR#: [id number] Case Date: 10/10/2020 Surgeon: Surgeon(s) and Role: [...] incision is completely closed without any wires, may, drains or other devices Disposition: awakened from [...] offset, Size 7; collared, SCOTT coated Acetabulum: [place] size 60mm Liner: 36 x 60 neutral liner Femoral Head: 36mm +1.5mm ceramic head Implant Type Status Implanted on Explanted on Expires on Delete SHELL ACET HIP 60MM POR CTD MULTI HOLE TI PINNACLE GRIPTION ([id number]) (AUTOREQ) - [id number] IMPLANTS Implanted 10/10/2020 07/01/2030 LINER ACET HIP 89N31ED STND POLY PINNACLE ALTRX ([id number]) (AUTOREQ) - [id number] IMPLANTS Implanted10/10/2020 08/31/2025 HEAD FEMORAL HIP 36MM +1.5MM OFFSET 11/13 TAPER CERAMIC ([id number]) (AutoReq) - [id number] IMPLANTS Implanted 10/10/2020 07/01/2025 STEM FEMORAL HIP SZ 7 PROX 02/14 TAPER POR CLLR HIGH OF TI ([id number]) (AutoReq) - [id number] IMPLANTS Implanted 10/10/2020 08/31/2030 PATIENT HISTORY: The [...] and found to be appropriate with good gnosticism of leg length and offset. A intraoperative x ray was taken and confirmed appropriate sizing and positioning of implants along with proper gnosticism of leg length and offset. The hip [...] was then awoken, transferred to the [facility] and taken to the PACU in [...] hours Other: Total Joint Protocol If the life science research assistant surgeon is other than a qualified [...] AM EST Office Visit Hematology/Oncology at [address] [address] Cl Hess MD [facility] [address] [address] [place] [address] 04/09/2024 10:00 AM EST Infusion Hematology Oncology at [address] [address] 04/23/2024 9:30 AM EST Office Visit Hematology/Oncology at [address] [address] Cl Hess MD [facility] [place] [address] [address] [place]OLOG[place] [address] 04/23/2024 10:00 AM EST Infusion Hematology Oncology at [address] [address] 05/18/2024 4:30 PM EDT TH Visit (TeleHealth) Radiation Oncology at [facility] [place] [address] Malachi Rothman MD [facility] [place] [address] 09/24/2024 9:00 AM EDT Office Visit Radiation Oncology at [address] [address] Ping Moore PA [facility] HEMATOLOGY [place] [address] documented as of this encounter Procedures Procedure [...] left hip Arthroplasty Acetabular/Prox Fem Prostc Agrft/Algrft (68608) 10/10/2020 4:43 PM EDT Primary osteoarthritis of left hip POCT GLUCOSE Routine 10/10/2020 3:20 PM EDT TOTAL HIP ARTHROPLASTY - POSTERIOR Routine 10/10/2020 2:13 PM EDT Primary osteoarthritis of left hip IMPLANTABLE DEVICES SCAN 10/10/2020 12:00 AM EDT documented in this encounter Results * POCT Glucose (10/12/2020 12:10 PM EDT) [facility] Glucose, POC 129 65 - 199 mg/dL [facility] Comment: Supplemental ranges: <140 mg/dL before meals <180 mg/dL all other times of the day Blood 10/12/2020 12:1 0 PM EDT 10/12/2020 12:10 PM EDT Ismael Wu MD POINT OF CARE TEST ORDERABLES Performing Organization Address City/[facility] Co de Phone Number [facility] [place] [place] [address] * POCT Glucose (10/12/2020 7:57 AM EDT) Glucose, POC 147 65 - 199 mg/dL [facility] Comment: Supplemental ranges: <140 mg/dL before meals <180 mg/dL all other times of the day Blood 10/12/2020 7:57 AM EDT 10/12/2020 7:57 AM EDT Ismael Wu MD POINT OF CARE TEST ORDERABLES Performing Organization Address [facility] Co de Phone Number [facility] [place] [address] * POCT Glucose (10/12/2020 3:22 AM EDT) Glucose, POC 154 65 - 199 mg/dL [facility] Comment: Supplemental ranges: <140 mg/dL before meals <180 mg/dL all other times of the day Blood 10/12/2020 3:22 AM EDT 10/12/2020 3:22 AM EDT Ismael Wu MD POINT OF CARE TEST ORDERABLES Performing Organization Address [facility] Co de Phone Number [facility] [place] [address] * POCT Glucose (10/11/2020 11:14 PM EDT) Glucose, POC 180 65 - 199 mg/dL [facility] Comment: Supplemental ranges: <140 mg/dL before meals <180 mg/dL all other times of the day Blood 10/11/2020 11:1 4 PM EDT 10/11/2020 11:14 PM EDT Ismael Wu MD POINT OF CARE TEST ORDERABLES Performing Organization Address City/[facility]/ZIP Co de Phone Number [facility] [place] [address] * (ABNORMAL) POCT Glucose (10/11/2020 7:53 PM EDT) Glucose, POC 208(H) 65 - 199 mg/dL [facility] Comment: Supplemental ranges: <140 mg/dL before meals <180 mg/dL all other times of the day Blood 10/11/2020 7:53 PM EDT 10/11/2020 7:53 PM EDT Ismael Wu MD POINT OF CARE TEST ORDERABLES Performing Organization Address [facility] Co de Phone Number [facility] [place] [address] * POCT Glucose (10/11/2020 4:34 PM EDT) Glucose, POC 153 65 - 199 mg/dL [facility] Comment: Supplemental ranges: <140 mg/dL before meals <180 mg/dL all other times of the day Blood 10/11/2020 4:34 PM EDT 10/11/2020 4:34 PM EDT Ismael Wu MD POINT OF CARE TEST ORDERABLES Performing Organization Address City/[facility]/ZIP Co de Phone Number [facility] [place] [address] * (ABNORMAL) POCT Glucose (10/11/2020 11:47 AM EDT) Glucose, POC 226(H) 65 - 199 mg/dL [facility] Comment: Supplemental ranges: <140 mg/dL before meals <180 mg/dL all other times of the day Blood 10/11/2020 11:4 7 AM EDT 10/11/2020 11:47 AM EDT Ismael Wu MD POINT OF CARE TEST ORDERABLES Performing Organization Address City/[facility]/ZIP Co de Phone Number [facility] [place] [address] * (ABNORMAL) Differential, Automated (10/11/2020 10:43 AM EDT) Neutrophil % 84.5 % [facility] Neutrophil Absolute 11.42(H) 1.70 - 6.10 x10(3)/mc L [facility] Lymph % 7.8 % [facility] Lymphocytes Abs 1.1 0.9 - 3.2 x10(3)/mc L [facility] Monocyte % 7.2 % [facility] Monocyte Abs 1.0(H) 0.3 - 0.9 x10(3)/mc L [facility] Eos % 0.0 % [facility] Eosinophils Abs 0.0 0.0 - 0.4 x10(3)/[facility] Basophil % 0.1 % [facility] Baso Absolute 0.0 0.0 - 0.1 x10(3)/ L [facility] Immature Gran % 0.40 % [facility] Comment: Immature granulocytes(IG's)percentage and absolute count will include metamyelocytes, myelocytes, and promyelocytes. Blood smears from CBCs yielding IG's will be scanned manually for concordance. If this scan disagrees with the automated IG or if promyelocytes are noted, a manual differential will be performed. Immature Gran Absolute 0.06(H) 0.00 - 0.04 x10(3)/mc L [facility] Blood 10/11/2020 10:4 3 AM EDT 10/11/2020 11:09 AM EDT Narrative Resulting Agency Comment Spec In Lab Liz Grimes APRN HEMATOLOGY ORDERABL ES Performing Organization Address City/[facility]/[place] [address] * (ABNORMAL) Hemogram (10/11/2020 10:43 AM EDT) White Blood Cell 13.5(H) 4.0 - 9.5 x10(3)/[facility] Red Blood Cell 3.87(L) 4.58 - 5.54 x10(6)/ L [facility] Hemoglobin 12.4(L) 13.7 - 16.5 gm/dL [facility] Hematocrit 36.7(L) 40.5 - 48.5 % [facility] Mean Cell Volume 94.8(H) 82.9 - 93.1 fL [facility] Mean Cell Hemoglobin 32.0 27.5 - 32.1 pg [facility] Mean Cell Hemoglobin Concentration 33.8 32.0 - 35.7 gm/dL [facility] Platelet 187 145 - 357 x10(3)/[facility] RDW Standard Deviation 44.4 36.0 - 45.0 [facility] RDW coefficient of variation 13.0 11.4 - 13.8 % [facility] Mean Platelet Volume 10.3 7.6 - 12.9 [facility] NRBC% auto 0.0 % [facility] NRBC Absolute 0.000 0.000 - 0.000 x10(3)/[facility] Blood 10/11/2020 10:4 3 AM EDT 10/11/2020 11:09 AM EDT Narrative Resulting Agency Comment Spec In Lab Liz Grimes CRYOGENICS ENGINEER HEMATOLOGY ORDERABL ES [facility] [place] [address] * (ABNORMAL) Basic Metabolic Panel (non-fasting) (10/11/2020 10:43 AM EDT) Glucose 231(H) 65 - 199 mg/dL [facility] Comment:Diabetes: >=200 mg/d L plus symptoms Blood Urea Nitrogen 18 10 - 20 mg/dL [facility] Creatinine 1.10 0.80 - 1.50 mg/dL [facility] Sodium 135 135 - 145 mmol/L [facility] Potassium 4.4 3.5 - 5.0 mmol/L [facility] Comment: Please note: ??Patients with WBC >100,000 may have falsely elevated Potassium levels. ??For accurate Potassium quantification in these patients send serum separator tube (gold top) for subsequent determinations. ??Contact the Clinical Chemistry Laboratory if there are any questions. Chloride 100 98 - 107 mmol/L [facility] Carbon Dioxide 25 22 - 31 mmol/L [facility] Anion Gap 10 5 - 15 mmol/L [facility] Calcium 8.6 8.5 - 10.5 mg/dL [facility] Est Glomerular Filtration Rate 67 >=60 mL/min/1. 73 m?? [facility] Comment: This patient? s [...] Lab Liz Grimes APRN CHEMISTRY ORDERABLE S [facility] [place] [address] * (ABNORMAL) POCT Glucose (10/11/2020 7:36 AM EDT) Glucose, POC 254(H) 65 - 199 mg/dL [facility] Comment: Supplemental ranges: <140 mg/dL before meals <180 mg/dL all other times of the day Blood 10/11/2020 7:36 AM EDT 10/11/2020 7:36 AM EDT Ismael Wu MD POINT OF CARE TEST ORDERABLES [facility] [place] [address] * POCT Glucose (10/11/2020 3:36 AM EDT) Glucose, POC 199 65 - 199 mg/dL [facility] Comment: Supplemental ranges: <140 mg/dL before meals <180 mg/dL all other times of the day Blood 10/11/2020 3:36 AM EDT 10/11/2020 3:36 AM EDT Ismael Wu MD POINT OF CARE TEST ORDERABLES Performing Organization Address City/[facility]/ZIP Co de Phone Number [facility] [place] [address] * POCT Glucose (10/11/2020 12:02 AM EDT) Glucose, POC 189 65 - 199 mg/dL [facility] Comment: Supplemental ranges: <140 mg/dL before meals <180 mg/dL all other times of the day Blood 10/11/2020 12:0 2 AM EDT 10/11/2020 12:02 AM EDT Ismael Wu MD POINT OF CARE TEST ORDERABLES Performing Organization Address City/[facility]/ZIP Co de Phone Number [facility] [place] [address] * XR Pelvis (Generic) (10/10/2020 9:46 PM [...] questions please contact the health health care manager that requested your imaging first. ? Electronically signed by: Claudio Ward MD, [facility] ([phone]), at 10/11/2020 8:33 AM Narrative 10/11/2020 8:33 [...] have questions please contactthe health health care manager that requested your imaging first. Electronically signed by: Claudio Ward MD, [facility]([phone]), at 10/11/2020 8:33 AM Ismael Wu MD IMG DX ORDERABLES * POCT Glucose (10/10/2020 9:19 PM EDT) Glucose, POC 149 65 - 199 mg/dL [facility] Comment: Supplemental ranges: <140 mg/dL before meals <180 mg/dL all other times of the day Blood 10/10/2020 9:19 PM EDT 10/10/2020 9:19 PM EDT Ismael Wu MD POINT OF CARE TEST ORDERABLES [facility] [place] [address] * XR Hip 1 view Left (10/10/2020 [...] questions please contact the health health care manager that requested your imaging first. [...] have questions please contactthe health health care manager that requested your imaging first. Electronically signed by: Claudio Ward MD, [facility]([phone]), at 10/11/2020 8:31 AM Ismael Wu MD [...] questions please contact the health health care manager that requested your imaging first. ? Electronically signed by: Claudio Ward MD, [facility] ([phone]), at 10/11/2020 8:30 AM Narrative 10/11/2020 8:30 [...] have questions please contactthe health health care manager that requested your imaging first. Electronically signed by: Claudio Ward MD, [facility]([phone]), at 10/11/2020 8:30 AM Ismael Wu MD [...] questions please contact the health health care manager that requested your imaging first. ? Electronically signed by: Claudio Ward MD, [facility] ([phone]), at 10/11/2020 8:29 AM Narrative 10/11/2020 8:29 [...] have questions please contactthe health health care manager that requested your imaging first. Electronically signed by: Claudio Ward MD, [facility]([phone]), at 10/11/2020 8:29 AM Ismael Wu MD IMG DX ORDERABLES * POCT Glucose (10/10/2020 3:20 PM EDT) [facility] Glucose, POC 119 65 - 199 mg/dL [facility] Comment: Supplemental ranges: <140 mg/dL before meals <180 mg/dL all other times of the day Blood 10/10/2020 3:20 PM EDT 10/10/2020 3:20 PM EDT Ismael Wu MD POINT OF CARE TEST ORDERABLES [facility] [place] [place] [address] * SCAN DOC: IMPLANTABLE DEVICES (10/10/2020 12:00 [...] Qian Santiago, AYE)0638 (Stopped - Provider: Savanah Guadalupe, AYE)1312 (New Bag - Provider: Savanah Guadalupe, AYE)1342 (Stopped - Provider: Savanah Guadalupe RN) celecoxib [...] Procedure), Routine 1453 (Given - Provider: Therese Thomas, AYE) clopidogreL (Plavix) tablet 75 mg (COMPLETED) 75 mg, Oral, ONCE, 1 dose, On Sat10/11/20 at 0700, Routine 0608 (Given - Provider: Qian Santiago, AYE) clopidogreL (Plavix) tablet 75 mg 75 mg, Oral, DAILY, First dose on Sat10/12/20 at 0900, Until Discontinued, Routine 0828 (Given - Provider: Savanah Guadalupe, AYE) [id number] ketamine 10 mg/mL or placebo injection 57 [...] - Provider: Junaid Diallo RN - Comment: [phone] (Given - Provider: Qian Santiago RN)0858 (Given [...] Boone Gonzalez RN)2319 (Given - Provider: Boone Gonzalez, AYE) 0418 [...] AYE)2008 (Given - Provider: Boone Gonzalez RN) 829 (Given - Provider: Savanah Guadalupe RN) [...] AYE) Continuous Medication Order 10/10/2020 10/11/2020 10/12/2020 [id number] ketamine or placebo 250 mg in sodium [...] Boone Gonzalez RN)0835 (Stopped - Provider: Savanah Guadalupe, AYE) PRN [...] Unit), Routine Linked Groups Order Group 1: Z10037 ketamine 10 mg/mL or placebo injection 57 [...] by Dr. Rodrick Chisholm. Acknowledged And INV K54230 patient's specific med #2 1 each () [...] mg/dL in 2 hours., Routine Group 4: [id number] ketamine or placebo 250 mg in sodium chloride 0.9% 250 mL infusion (CANCELED)Jump to med 5 mcg/kg/min ? 114.8 kg (34.44 mL/hr, rounded to 34.4 mL/hr), Intravenous, CONTINUOUS, Starting on Sat10/10/20 at 0700, Until Sat10/12/20 at 0611, 0.5 mg/kg bolus followed by a 5 mcg/kg/min continuous infusion. total dose (bolus plus continuous infusion) should not exceed 500 mg And INV [id number] patient's specific infusion med #2 1 each [...] Unit) documented in this encounter Care Teams Furnace Repair Mechanic Relationship Specialty Start Date End Date Alo Carey DO [address] [place] [address] [place] [address] PCP - General Internal Medicine 08/31/20 07/03/23 documented as of this encounter
--- OUTSIDE RECORDS SUMMARY | 2024-03-26 10:42 | XMS_ITS | Encounter Summary ---
[place] [address] Care Team Providers Care Industrial Fabric Cutter Name Role Phone YungAlo santiago Primary Care Provider [phone] Encounter Details Date Type Department Care Team (Late st Contact Info) Description 01/27/2021 2:15 PM EST Telephone Pre Admission Testing at [address] [phone] Social History Tobacco Use Types [...] AM EST Office Visit Hematology/Oncology at [address] [phone] Cl Hess MD [facility] [place] [address] [address] [place] [address] 04/09/2024 10:00 AM EST Infusion Hematology Oncology at [address] [phone] 04/23/2024 9:30 AM EST Office Visit Hematology/Oncology at [address] [phone] Cl Hess MD [facility] [place] [address] [address] [place] [address] 04/23/2024 10:00 AM EST Infusion Hematology Oncology at [address] [phone] 05/18/2024 4:30 PM EDT TH Visit (TeleHealth) [place] [address] Malachi Rothman MD [facility] DR [place] [address] 09/24/2024 9:00 AM EDT Office Visit Radiation Oncology at [address] [phone] Ping Moore PA [facility] HEMATOLOGY [place] [address] documented as of this encounter Visit Diagnoses Not on filedocumented in this encounter Care Teams Industrial Fabric Cutter Relationship Specialty Start Date End Date Alo Carey DO [address] [place] [address] [place] [address] PCP - General Internal Medicine 08/31/20 07/03/23 documented as of this encounter
--- OUTSIDE RECORDS SUMMARY | 2024-03-26 10:42 | XMS_ITS | Encounter Summary ---
Author Organization [facility] Address [facility] [place] [address] Care Team Providers Care Tire Bladder Maker Name Role Phone YungAlo santiago Primary Care Provider [phone] Reason for Visit * Consultation (YASSINE) - Closed Specialty Diagnoses / Procedures Referred By Marques livingston Referred To Contact Urology Diagnoses Malignant neoplasm of prostate Dr. Myers has requested simultaneous appointments with Dr. Engle and Dr. Naylor -- retention, high risk prostate ca Rock Myers MD [address] [place] [address] Spenser Naylor MD [facility] [place] [address] Referral ID Status Reason Start Date Expiration Date V isits Requested Visits Authorized [id number] Closed Consult, Test & Treat 11/25/2020 11/25/2021 6 6 Encounter Details Date Type Department Care Team (Latest Contact Info) Description 01/16/2021 2:00 PM EST TH Visit (TeleHealth) [place] [address] Cayetano Engle MD [facility] [place] [address] Benign prostatic hyperplasia, unspecified whether lower urinary [...] at that time by his urologist in [place]. MRI ordered due to PSA velocity and [...] on 01/24/21 and with radiation oncology in [facility] on01/20/21. Anticoagulation? On ASA/plavix PMH and [...] AM EST Office Visit Hematology/Oncology at [address] [address] Cl Hess MD [facility] [place] [address] [address] [place]ATOLOGY [place] [address] 04/09/2024 10:00 AM EST Infusion Hematology Oncology at [address] [phone] 04/23/2024 9:30 AM EST Office Visit Hematology/Oncology at [address] [phone] Cl Hess MD [facility] [place] [address] [address] [place]AT[place] [address] 04/23/2024 10:00 AM EST Infusion Hematology Oncology at [address] [address] 05/18/2024 4:30 PM EDT TH Visit (TeleHealth) [place] [address] Malachi Rothman MD [facility] [place] [address] 09/24/2024 9:00 AM EDT Office Visit Radiation Oncology at [address] [address] Ping Moore PA [facility] DR [place] [address] Scheduled Orders Name Type Priority Associated Diagnoses [...] prostate documented in this encounter Care Teams Tire Bladder Maker Relationship Specialty Start Date End Date Alo Carey DO [address] [place] [address] [place] [address] PCP - General Internal Medicine 08/31/20 07/03/23 documented as of this encounter
--- OUTSIDE RECORDS SUMMARY | 2024-03-26 10:42 | XMS_ITS | Encounter Summary ---
[place] [address] Care Team Providers Care Staff Educator Name Role Phone YungAlo santiago Primary Care Provider [phone] Reason for Visit * Reason Onset Date Comments Other 01/25/2021 Encounter Details Date Type Department Care Team (Late st Contact Info) Description 01/25/2021 Telephone [place] [phone] Ismael Wu MD [facility] [place] [address] Other Social History Tobacco Use Types Packs/Day [...] AM EST Office Visit Hematology/Oncology at [address] [phone] Cl Hess MD [facility] [place] [address] [address] HEMATOLOGY AND [place]COLOGY [place], [place] [address] 04/09/2024 10:00 AM EST Infusion Hematology Oncology at [address] [phone] 04/23/2024 9:30 AM EST Office Visit Hematology/Oncology at [address] [phone] Cl Hess MD [facility] [address] HEMATOLOGY AND ONCOLOGY [place], [place] [address] 04/23/2024 10:00 AM EST Infusion Hematology Oncology at [address] [phone] 05/18/2024 4:30 PM EDT TH Visit (TeleHealth) [place] [address] Malachi Rothman MD [facility] [place] [address] 09/24/2024 9:00 AM EDT Office Visit Radiation Oncology at [address] [phone] Ping Moore PA [facility] H[place]ATOLOGY [place] [address] documented as of this encounter Visit Diagnoses Not on filedocumented in this encounter Care Teams Staff Educator Relationship Specialty Start Date End Date Alo Carey DO [address] [place] [address] [place] [phone] PCP - General Internal Medicine 08/31/20 07/03/23 documented as of this encounter
--- OUTSIDE RECORDS SUMMARY | 2024-03-26 10:42 | XMS_ITS | Encounter Summary ---
Author Organization [facility] [place] [address] Care Team Providers Care Supervisor Toy Parts Former Name Role Phone Alo Carey DO Primary Care Provider [phone] Encounter Details Date Type Department Care Team (Late st Contact Info) Description 12/07/2020 Ancillary Procedure Radiology Library [facility] [place] [address] Alo Carey DO [address] [place] [phone] Social History Tobacco Use Types Packs/Day [...] AM EST Office Visit Hematology/Oncology at [address] [phone] Cl Hess MD [facility] [place] [address] [address] HEMATOLOGY AND ONCOLOGY [place], [place] [phone] 04/09/2024 10:00 AM EST Infusion Hematology Oncology at [address] [phone] 04/23/2024 9:30 AM EST Office Visit Hematology/Oncology at [address] [phone] Cl Hess MD [facility] [place] [address] [address] HEMATOLOGY AND ONCOLOGY [place], [place] [phone] 04/23/2024 10:00 AM EST Infusion Hematology Oncology at [address] [phone] 05/18/2024 4:30 PM EDT TH Visit (TeleHealth) [place] [address] Malachi Rothman MD [facility] [place] [address] 09/24/2024 9:00 AM EDT Office Visit Radiation Oncology at [address] [phone] Ping Moore PA [facility] HEMATOLOGY [place] [address] documented as of this encounter Procedures Procedure Name Priority Date/Time Associated Diagnosis Comments FILM LIBRARY STORAGE ONLY CT ABDOMEN AND PELVIS Routine 12/07/2020 12:00 AM EDT documented in this encounter Results * Film Library- Storage Only CT Abdomen & Pelvis (12/07/2020 12:00 AM EDT) Narrative [facility] - 02/28/2021 10:10 AM EST This exam is auto-finalizing. It's purpose is for storage only. Alo Carey DO [facility] FILM LIBRARY ORD ERABLES Performing Organization Address City/State/[facility] Co de Phone Number [place], [place] documented in this encounter Visit Diagnoses Not on filedocumented in this encounter Care Teams Supervisor Toy Parts Former Relationship Specialty Start Date End Date Alo Carey DO [address] [place] [address] [place] [address] PCP - General Internal Medicine 08/31/20 07/03/23 documented as of this encounter
--- OUTSIDE RECORDS SUMMARY | 2024-03-26 10:42 | XMS_ITS | Encounter Summary ---
[place] [address] Care Team Providers Care Middle School Coach Name Role Phone Alo Carey DO Primary Care Provider [phone] Reason for Visit * Consultation (Routine) - Closed Specialty Diagnoses / Procedures Referred By Marques livingston Referred To Contact Radiation Oncology Diagnoses Malignant neoplasm of prostate PROSTATE CA Procedures PROSTATE CA Rock Myers MD [address] [place] [address] Alonso Shelley MD [address] [place] [address] [place] [address] Referral ID Status Reason Start Date Expiration Date Visits Re quested Visits Authorized [id number] Closed 12/13/2020 12/13/2021 6 6 Encounter Details Date Type Department Care Team (Late st Contact Info) Description 01/20/2021 10:00 AM EST Office Visit Radiation Oncology at [address] [phone] Alonso Shelley MD [address] [place] [address] [place] [address] Malignant neoplasm of prostate Social History Tobacco [...] your prostate cancer looks under the microscope). [place] scores for cancer range from 6-10, and [...] you to my colleague Dr. Beaver in [place] for a further discussion. 3. Fiducial marker [...] of completion radiation. 6. SIDE EFFECTS - Retirement: These can include be permanent damage of the radiated tissues, including the rectum/bowel, bladder, prostate and surrounding tissues. Potential serious injury is rare, but can include poor wound healing, bleeding, or destruction of healthy tissue that may require surgery to repair and may result in a colostomy (bag for defecation) or urostomy (bag for urination). There may be a slow, longwall headgate operator decrease in your sexual function as [...] do not hesitate to call me at [phone] with any other questions or concerns you have. IfI am not here, one of our radiation oncology nurses can assist you or help you get in touch with me. A Radiation Oncology doctor is also computer information systems professor after our normal hours and on weekends for urgent questions or concerns related to radiation treatments that can not wait until normal business hours. To reach the on-call doctor after-hours, just call and have the mottle lay up operator page the Radiation Oncologist computer information systems professor. And, as always, if you experience any [...] 7. Uncontrollable bleeding Alonso Chiu MD, MS Media Services Coordinator of Radiation Oncology [facility] documented in this encounter Progress Notes * Alonso Shelley MD - 01/20/2021 10:00 AM EST Images from the original note were not included. Radiation Oncology Prostate Cancer Consult Note Alonso Shelley MD, MS [facility] [phone] PATIENT IDENTIFICATION: PATIENT NAME: Wero Sadler DATE OF : 1950 REFERRING PROVIDER: Alo Carey[address] [place] [address] REASON FOR CONSULTATION : Cancer Staging Malignant [...] discuss his case with Dr. Naylor at [facility]. He acknowledged the complexities of the case. [...] Results / Location: 07/06/2020 - Dr Mayo ([place], [place] - [facility]) Gl 3+3 in 2 of 12 cores @ right apex (in [place], prior to moving to [place]) Pertinent Imaging Studies: mpMRI 11/17/20 - 50cc [...] 20.72) performed by Ismael Wu MD at [facility] MAIN OR CONTRAINDICATIONS TO RADIATION [...] procedure at [facility] in [place]: shaking Has tolerated MRI and CT contrast. 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 In the short term, I reviewed the common irritative bowel and bladder side effects associated with all forms of radiotherapy. He understands we would typically wait 4-6 months post PVP to initiate RT. In the assisted, I explained there is an approximately 2% [...] candidate for any currently open trials at [facility]. On balance, Wero wishes to proceed with his surgical consultation and PVP. After biopsy is performed, I would recommend we initiate ADT, which can be done here in [facility]. Follow-up appointments will be made [...] Yes 5FU, Had colon ca [address] [facility], Dr Kamara. Prior Hormone Therapy: Yes , casodex for 1 month End of Dec-Jan Other: Patient denies history of Scleroderma and Lupus LEARNING ASSESSMENT REVIEWED: Yes ADVANCED DIRECTIVE: Not discussed today. PAIN ASSESSMENT: [0] out of 10 *eD-H Adult PCS Flow Sheet if 4 or above SOCIAL ASSESSMENT: See [facility] social assessment information entered. Support Systems: lives with 2 brothers Barriers to treatment: none discussed today Referrals/Interventions: chemical tank worker visit on day per routine if he choses radiation treatments. RADIATION SPECIFIC TEACHING:Will provide the following information on day [facility] Radiation Therapy and You Site specific teaching : Other: PLAN: Per Dr Shelley documented in this encounter Plan of Treatment Upcoming Encounters Date Type Department Care Team (Late st Contact Info) Description 04/09/2024 9:30 AM EST Office Visit Hematology/Oncology at [address] [phone] Cl Hess MD [facility] [place] [address] [address] HEMATOLOGY AND ONCOLOGY [place], [place] [phone] 04/09/2024 10:00 AM EST Infusion Hematology Oncology at [address] [phone] 04/23/2024 9:30 AM EST Office Visit Hematology/Oncology at [address] [phone] Cl Hess MD [facility] [place] [address] [address] HEMATOLOGY AND ONCOLOGY [place], [place] [address] 04/23/2024 10:00 AM EST Infusion Hematology Oncology at [address] [phone] 05/18/2024 4:30 PM EDT TH Visit (TeleHealth) [place] [address] Malachi Rothman MD [facility] [place] [address] 09/24/2024 9:00 AM EDT Office Visit Radiation Oncology at [address] [phone] Ping Moore PA [facility] [place] [address] documented as of this encounter Visit Diagnoses Diagnosis Malignant neoplasm of prostate documented in this encounter Care Teams Middle School Coach Relationship Specialty Start Date End Date Alo Carey DO [address] [place] [address] [place] [phone] PCP - General Internal Medicine 08/31/20 07/03/23 documented as of this encounter
--- OUTSIDE RECORDS SUMMARY | 2024-03-26 10:42 | XMS_ITS | Encounter Summary ---
Author Organization [facility] Address [facility] [place] [address] Care Team Providers Care Harvesting Supervisor Name Role Phone Alo Carey DO Primary Care Provider [phone] Encounter Details Date Type Department Care Team (Late st Contact Info) Description 02/02/2021 8:56 AM EST Anesthesia Event Main OR at [address] [phone] Vilma Erazo C[place] [address] Leah Trejo CRNA [facility] [place] [address] Anesthesia Record Procedure Summary Procedure Name Responsible [...] basilic vein (medial side of arm), left; [id number] catheter system; Anatomical Landmarks; 20 gauge; briana [...] Date: 02/02/21 Room / Location: [facility] MA[facility] OR Anesthesia Start: 855 Anesthesia Stop: [...] ??? Colon adenocarcinoma 2009 recieved chemo in [place] ??? Coronary artery dissection ??? CPAP (continuous [...] at [facility] MAIN OR Social History Tobacco Use [...] at [facility] in [place]: shaking Has tolerated MRI [...] cancer, postop urinary retention following recent JIMI ([facility] 10/2020) ?? Patient had urinary retention after [...] note documented. Appears that a pre- induction Mary was placed with some difficulty. GERD: on [...] AM EST Office Visit Hematology/Oncology at [address] [phone] Cl Hess MD [facility] [place] [address] Yessi Renee APRN [address] [place] [address] DR HEMATOLOGY AND ONCOLOGY [place], [place] [address] 04/09/2024 10:00 AM EST Infusion Hematology Oncology at [address] [phone] 04/23/2024 9:30 AM EST Office Visit Hematology/Oncology at [address] [phone] Cl Hess MD [facility] [place] [address] Yessi Renee APRN [address] [place] [address] DR HEMATOLOGY AND ONCOLOGY [place], [place] [address] 04/23/2024 10:00 AM EST Infusion Hematology Oncology at [address] [phone] 05/18/2024 4:30 PM EDT TH Visit (TeleHealth) [place] [phone] Malachi Rothman MD [facility] [place] [address] 09/24/2024 9:00 AM EDT Office Visit Radiation Oncology at [address] [phone] Ping Moore PA [facility] DR [place] [address] documented as of this encounter Visit Diagnoses Not on filedocumented in this encounter Administered Medications Inactive Administered Medications - up to 3 most recent administrations Medication Order MAR Action Action Date Dose Rate Site ciprofloxacin (Cipro) 400 mg in dextrose 5% 200 mL infusion 400 mg, Intravenous, MIDLEVEL PROVIDER TO O.R., 1 dose, On Ammy 02/02/21 [...] mg documented in this encounter Care Teams Harvesting Supervisor Relationship Specialty Start Date End Date Alo Carey DO [address] [place] [address] [place] [address] PCP - General Internal Medicine 08/31/20 07/03/23 documented as of this encounter
--- OUTSIDE RECORDS SUMMARY | 2024-03-26 10:42 | XMS_ITS | Encounter Summary ---
[place] [address] Care Team Providers Care Tablet Repair Name Role Phone YungAlo santiago Primary Care Provider [phone] Reason for Visit * Reason Onset Date Comments Pre Procedure Call 12/02/2020 Encounter Details Date Type Department Care Team (Late st Contact Info) Description 12/02/2020 Telephone [place] [phone] Ismael Wu MD [facility] DR [place] [address] Pre Procedure Call Social History Tobacco Use [...] AM EST Office Visit Hematology/Oncology at [address] [phone] Cl Hess MD [facility] [place] [address] HEMATOLOGY [place] [address] 04/09/2024 10:00 AM EST Infusion Hematology Oncology at [address] [phone] 04/23/2024 9:30 AM EST Office Visit Hematology/Oncology at [address] [phone] Cl Hess MD [facility] [place] [address] [address] HEMATOLOGY [place] [address] 04/23/2024 10:00 AM EST Infusion Hematology Oncology at [address] [phone] 05/18/2024 4:30 PM EDT TH Visit (TeleHealth) [place] [address] Malachi Rothman MD [facility] DR [place] [address] 09/24/2024 9:00 AM EDT Office Visit Radiation Oncology at [address] [phone] Ping Moore PA [facility] HEMATOLOGY [place] [address] documented as of this encounter Visit Diagnoses Not on filedocumented in this encounter Care Teams Tablet Repair Relationship Specialty Start Date End Date Alo Carey DO [address] [place] [address] [place] [address] PCP - General Internal Medicine 08/31/20 07/03/23 documented as of this encounter
--- OUTSIDE RECORDS SUMMARY | 2024-03-26 10:43 | XMS_ITS | Encounter Summary ---
Author Organization [facility] Address [address] [place] [address] Care Team Providers Care Enterprise Systems Architect Name Role Phone Tristen Hunter MD Primary Care Provider [phone] Encounter Details Date Type Department Care Team (Late st Contact Info) Description 12/03/2023 10:00 EDT Phlebotomy Only [facility] ED Center 2 Phlebotomy [address], [place] [id number] Vice President Of Compliance, Acc Phlebotomy Vision loss of right eye; [...] Info) Description 03/30/2024 9:15 EST Office Visit [facility] Ophthalmology [address] [phone] Uday Reece MD [address] [facility], Level [address] [place] [phone] 04/15/2024 12:30 EST Office Visit [facility] [address], [place] [phone] Barby Guzman MD [address] [facility], [address] [place] [address] documented as of this encounter [...] 140 136 - 145 mmol/L 12/03/2023 11:42 [facility] Potassium 4.0 3.5 - 5.0 mmol/L 12/03/2023 11:42 [facility] Chloride 100 96 - 110 mmol/L 12/03/2023 11:42 [facility] CO2 Total 30 22 - 32 mmol/L 12/03/2023 11:42 [facility] Anion Gap 10 5 - 14 mmol/L 12/03/2023 11:42 [facility] Glucose 86 70 - 99 mg/dl 12/03/2023 11:42 [facility] Calcium 9.2 8.5 - 10.5 mg/dL 12/03/2023 11:42 [facility] BUN 14 10 - 26 mg/dL 12/03/2023 11:42 [facility] Creatinine 0.54(L) 0.66 - 1.25 mg/dL 12/03/2023 11:42 EDT [facility] eGFR 104 >60 mL/min/1.73 m2 12/03/2023 11:42 EDT [facility] Blood VENOUS BLOOD / Unknown Venipuncture / Unknown 12/03/2023 10:15 EDT 12/03/2023 11:00 EDT Wero Avilez MD CHEMISTRY & BLOOD GAS OR DERABLES Final Result [facility] [address] [place] [address] * (ABNORMAL) VITAMIN A, S (12/03/2023 10:15 EDT) Vitamin A 27.4(L) 32.5 - 78.0 mcg/dL 12/07/2023 15:06 EDT [facility] Comment: ADDITIONAL INFORMATION This test was developed and its performance characteristics determined by [facility] in a manner consistent with CLIA requirements. This test has not been cleared or approved by the U.S. Food and Drug Administration. Test Performed by: [facility] - [address] [address] Risk And Compliance Analytics Director: Sarah Whaley Ph.D.; CLIA# [id number] Blood VENOUS BLOOD / Unknown Venipuncture / Unknown 12/03/2023 10:15 EDT 12/03/2023 10:58 EDT Wero Avilez MD CHEMISTRY & BLOOD GAS OR DERABLES Final Result [facility] [address] [place] [address] * METHYLMALONIC ACID (12/03/2023 10:15 EDT) Methylmalonic Acid, QN, S 0.10 <=0.40 nmol/mL 12/06/2023 12:11 EDT [facility] Comment: ADDITIONAL INFORMATION This test was developed and its performance characteristics determined by [facility] in a manner consistent with CLIA requirements. This test has not been cleared or approved by the U.S. Food and Drug Administration. Test Performed by: [address] [address] Risk And Compliance Analytics Director: Sarah Whaley Ph.D.; CLIA# [id number] Blood VENOUS BLOOD / Unknown Venipuncture / Unknown 12/03/2023 10:15 EDT 12/03/2023 10:58 EDT Wero Avilez MD CHEMISTRY & BLOOD GAS OR DERABLES Final Result Performing Organization Address City/[facility]/ZIP Co de Phone Number [address] [address] * VITAMIN B12 (12/03/2023 10:15 EDT) Vitamin B12 331 211 - 911 pg/mL 12/03/2023 12:30 EDT [facility] Blood VENOUS BLOOD / Unknown Venipuncture / Unknown 12/03/2023 10:15 EDT 12/03/2023 11:00 EDT Wero Avilez MD CHEMISTRY & BLOOD GAS OR DERABLES Final Result [facility] [address] [place] [address] * (ABNORMAL) COMPLETE BLOOD COUNT AND DIFFERENTIAL (12/03/2023 10:15 EDT) WBC 4.47 4.00 - 10.40 K/cmm 12/03/2023 11:05 EDT [facility] RBC 3.56(L) 4.36 - 5.78 M/cmm 12/03/2023 11:05 [facility] Hemoglobin 11.2(L) 13.8 - 17.3 g/dL 12/03/2023 11:05 [facility] HCT 34.0(L) 39.5 - 50.2 % 12/03/2023 11:05 [facility] MCV 96(H) 81 - 95 fL 12/03/2023 11:05 [facility] MCH 31.5 27.6 - 33.0 pg 12/03/2023 11:05 [facility] MCHC 32.9 32.8 - 36.4 g/dL 12/03/2023 11:05 [facility] RDW-CV 14.6(H) <14.2 % 12/03/2023 11:05 [facility] RDW-SD 51.7(H) <46.0 fl 12/03/2023 11:05 [facility] PLT 187 141 - 377 K/cmm 12/03/2023 11:05 [facility] MPV 10.3 9.5 - 12.7 fL 12/03/2023 11:05 [facility] % Neutrophils 70.3 Not Indicated % 12/03/2023 11:05 [facility] % Lymphocytes 14.3 Not Indicated % 12/03/2023 11:05 [facility] % Monocytes 11.9 Not Indicated % 12/03/2023 11:05 [facility] % Eosinophils 2.7 Not Indicated % 12/03/2023 11:05 [facility] % Basophils 0.4 Not Indicated % 12/03/2023 11:05 [facility] % Immature Grans 0.4 Not Indicated % 12/03/2023 11:05 [facility] Absolute Neutrophils 3.14 2.20 - 8.85 K/cmm 12/03/2023 11:05 [facility] Absolute Lymphocytes 0.64(L) 1.09 - 3.30 K/cmm 12/03/2023 11:05 EDT [facility] Absolute Monocytes 0.53 0.10 - 0.80 K/cmm 12/03/2023 11:05 EDT [facility] Absolute Eosinophils 0.12 0.03 - 0.61 K/cmm 12/03/2023 11:05 EDT [facility] ABS Basophils 0.02 0.01 - 0.11 K/cmm 12/03/2023 11:05 T [facility] Absolute Immature Grans 0.02 0.00 - 0.06 K/cmm 12/03/2023 11:05 EDT [facility] Type of Differential: Auto 12/03/2023 11:05 T [facility] Blood VENOUS BLOOD / Unknown Venipuncture / Unknown 12/03/2023 10:15 EDT 12/03/2023 10:56 EDT Wero Avilez MD PACKAGES & DNA PROBE ORD ERABLES Final Result [facility] [address] [place], [place] [address] documented in this encounter Visit Diagnoses Diagnosis 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
--- OUTSIDE RECORDS SUMMARY | 2024-03-26 10:43 | XMS_ITS | Encounter Summary ---
Author Organization [facility] Address [facility] [place] [address] Care Team Providers Care Senior Windows Systems Administrator Name Role Phone YungAlo santiago Primary Care Provider [phone] Reason for Visit * Reason Comments Pre-op Exam Left JIMI DOS 08.0 9.21 Encounter Details Date Type Department Care Team (Latest Contact Info) Description 10/06/2020 4:00 PM EDT Office [place] [phone] Pedro Mai MD [facility] ORTHOPAEDIC [place] [address] Preop examination; Primary osteoarthritis of left hip [...] Rate Last Admin ??? [START ON 10/10/2020] V33683 ketamine 10 mg/mL or placebo injection 57 mg 0.5 mg/kg/dose Intravenous Once Rodrick Chisholm MD And ??? [START ON 10/10/2020] INV [id number] patient's specific med #2 1 each 1 Syringe Intravenous Once Rodrick Chisholm MD ??? [START ON 10/10/2020] [id number] ketamine or placebo 250 mg in sodium chloride 0.9% 250 mL infusion 5mcg/kg/min Intravenous Continuous Rodrick Chisholm MD And ??? [START ON 10/10/2020] INV [id number] patient's specific infusion med #2 1 each [...] and has seen Dr. Myers here in [place]. He has MRI planned. Skin: Negative for [...] used during vascular procedure at [facility] in [place] Physical Exam: Last Set of Vitals and [...] AM EST Office Visit Hematology/Oncology at [address] [phone] Cl Hess MD [facility] [place] [address] [address] HEMATOLOGY AND ONCOLOGY [place], [place] [address] 04/09/2024 10:00 AM EST Infusion Hematology Oncology at [address] [phone] 04/23/2024 9:30 AM EST Office Visit Hematology/Oncology at [address] [phone] Cl Hess MD [facility] [place] [address] [address] HEMATOLOGY AND ONCOLOGY [place], [place] [address] 04/23/2024 10:00 AM EST Infusion Hematology Oncology at [address] [address] 05/18/2024 4:30 PM EDT TH Visit (TeleHealth) [place] [address] Malachi Rothman MD [facility] RADIATION [place] [address] 09/24/2024 9:00 AM EDT Office Visit Radiation Oncology at [address] [phone] Ping Moore PA [facility] DR HEMATOLOGY [place] [address] documented as of this encounter Visit Diagnoses Diagnosis Preop examination Preoperative examination, unspecified Primary osteoarthritis of left hip Primary localized osteoarthrosis, pelvic region and thigh documented in this encounter Care Teams Senior Windows Systems Administrator Relationship Specialty Start Date End Date Alo Carey DO [address] [place] [address] [place] [address] PCP - General Internal Medicine 08/31/20 07/03/23 documented as of this encounter
--- OUTSIDE RECORDS SUMMARY | 2024-03-26 10:43 | XMS_ITS | Encounter Summary ---
Author Organization [facility] Address [address] [place] [address] Care Team Providers Care Floor Worker Well Service Name Role Phone Tristen Hunter MD Primary Care Provider [phone] Reason for Visit * Reason Onset Date Comments Other 12/18/2023 Encounter Details Date Type Department Care Team (Late st Contact Info) Description 12/18/2023 Telephone [facility] Ophthalmology - [address] [place], [place] [phone] Wero Avilez MD [address] [place] [address], [facility] [address] [place] [address] Other Social History Tobacco Use [...] on 01/22 he will be going to [facility] for Whipple surgery [...] Info) Description 03/30/2024 9:15 EST Office Visit [facility] Ophthalmology [address] [phone] Uday Reece MD [address] [place] [phone] 04/15/2024 12:30 EST Office Visit [address] [phone] Barby Guzman MD [address] [place] [phone] documented as of this encounter Visit Diagnoses Not on filedocumented in this encounter Care Teams Floor Worker Well Service Relationship Specialty Start Date End Date Tristen Hunter MD [address] [place] [address] [place] [address] PCP - General Family Medicine - Primary Care 12/03/23 documented as of this encounter
--- OUTSIDE RECORDS SUMMARY | 2024-03-26 10:43 | XMS_ITS | Encounter Summary ---
Author Organization [facility] Address [address] [place] [address] Care Team Providers Care Exhibit Specialist Name Role Phone Tristen Hunter MD Primary Care Provider [phone] Reason for Visit * Reason Onset Date Comments Diagnostic Imaging Report 12/27/2023 Encounter Details Date Type Department Care Team (Late st Contact Info) Description 12/27/2023 Telephone [facility] Ophthalmology - [facility] [address] [place], [place] [phone] Wero Avilez MD [address] [place] [address] [address] [place] [address] Diagnostic Imaging Report Social History [...] Info) Description 03/30/2024 9:15 EST Office Visit [facility] Ophthalmology [address] [address] Uday Reece MD [address] [place] [phone] 04/15/2024 12:30 EST Office Visit [facility] Ophthalmology [address] [address] Barby Guzman MD [address] [place] [phone] documented as of this encounter Visit Diagnoses Not on filedocumented in this encounter Care Teams Exhibit Specialist Relationship Specialty Start Date End Date Tristen Hunter MD [address] [place] [address] [place] [address] PCP - General Family Medicine - Primary Care 12/03/23 documented as of this encounter
--- OUTSIDE RECORDS SUMMARY | 2024-03-26 10:43 | XMS_ITS | Encounter Summary ---
Author Organization [facility] Address [facility] [place] [address] Care Team Providers Care Full Stack Engineer Name Role Phone YungAlo santiago Primary Care Provider [phone] Encounter Details Date Type Department Care Team (Latest Contact Info) Description 09/15/2020 9:45 AM EDT - 09/15/2020 11:59 PM EDT Hospital Encounter XRay at [address] [place] [address] Ismael Wu MD [facility] [place] [address] Primary osteoarthritis of both hips Discharge Disposition: [...] AM EST Office Visit Hematology/Oncology at [address] [phone] Cl Hess MD [facility] [place] [address] [address] HEMATOLOGY [place] [address] 04/09/2024 10:00 AM EST Infusion Hematology Oncology at [address] [phone] 04/23/2024 9:30 AM EST Office Visit Hematology/Oncology at [address] [phone] Cl Hess MD [facility] [place] [address] Yessi Renee [address] HEMATOLOGY [place] [address] 04/23/2024 10:00 AM EST Infusion Hematology Oncology at [address] [phone] 05/18/2024 4:30 PM EDT TH Visit (TeleHealth) [place] [address] Malachi Rothman MD [facility] [place] [address] 09/24/2024 9:00 AM EDT Office Visit Radiation Oncology at [address] [phone] Ping Moore PA [facility] DR HEMATOLOGY [place] [address] documented as of this encounter Procedures Procedure [...] have questions please contact the health director career services that requested your imaging first. ? Electronically signed by: Shelly Richards [facility] ([phone]), at 09/15/2020 11:17 AM Narrative 09/15/2020 11:17 [...] who have questions please contactthe health director career services that requested your imaging first. Electronically signed by: Shelly Richards [facility] ([phone]), at 09/15/2020 11:17 AM Ismael Wu MD IMG DX ORDERABLES documented in this encounter Visit Diagnoses Diagnosis Primary osteoarthritis of both hips Primary localized osteoarthrosis, pelvic region and thigh documented in this encounter Care Teams Full Stack Engineer Relationship Specialty Start Date End Date Alo Carey DO [address] [place] [address] [place] [address] PCP - General Internal Medicine 08/31/20 07/03/23 documented as of this encounter
--- OUTSIDE RECORDS SUMMARY | 2024-03-26 10:43 | XMS_ITS | Encounter Summary ---
[place] [address] Care Team Providers Care Piping Designer Name Role Phone Alo Carey DO Primary Care Provider [phone] Reason for Visit * Reason Comments Establish Care BILATERAL HIP PAIN// DISCUSSION OF JIMI * Consultation (Routine) - Closed Specialty Diagnoses / Procedures Referred By Marques livingston Referred To Contact Orthopaedics Diagnoses Pain in unspecified hip BILATERAL HIP PAIN Alo Carey, [address] [place] [phone] [facility] [address] [place] [phone] Referral ID Status Reason Start Date Expiration Date V isits Requested Visits Authorized [id number] Closed Consult, [facility] PCP Updated and/or Approved 08/18/2020 08/18/2021 6 6 Encounter Details Date Type Department Care Team (Latest Contact Info) Description 09/15/2020 9:00 AM EDT [place] [address] Ismael Wu MD [facility] [address] [place] [address] Left leg pain (Primary Dx); Primary osteoarthritis [...] a dye used during vascular procedure at [facility] in [place] FAMILY HISTORY: Family history was reviewed with patient and is as listed below. Family History Problem Relation Age of Onset ??? Diabetes Father SOCIAL HISTORY: The patient lives in [place]. He had lived for many years in [place]. His within the last year. He is [...] less than $20,000 # People Supported 2 Belarusian, , No, not Belarusian// Race White Health Literacy Not at all Currently working No Not working because: Retired [facility] Response 09/15/2020 HOOS JR Scores 49.86 Spine [facility] Response 09/15/2020 HOOS JR Scores 49.86 Objective: [...] 5 30 40 20 Hip Right Left [facility] positive positive Passive Straight Leg Raise [...] LEFT JIMI, posterior approach, DeP[facility] / [place] Thorough documentation of vascular status pre-operatively in light of history of PVD. Ismael Wu MD documented in this encounter Plan of Treatment Upcoming Encounters Date Type Department Care Team (Late st Contact Info) Description 04/09/2024 9:30 AM EST Office Visit Hematology/Oncology at [address] [phone] Cl Hess MD [facility] [place] [address] [address] HEMATOLOG[place] [address] 04/09/2024 10:00 AM EST Infusion Hematology Oncology at [address] [phone] 04/23/2024 9:30 AM EST Office Visit Hematology/Oncology at [address] [phone] Cl Hess MD [facility] [place] [place] [address] [address] HEMATOLOGY [place] [address] 04/23/2024 10:00 AM EST Infusion Hematology Oncology at [address] [phone] 05/18/2024 4:30 PM EDT TH Visit (TeleHealth) [place] [address] Malachi Rothman MD [facility] [address] [place] [address] 09/24/2024 9:00 AM EDT Office Visit Radiation Oncology at [address] [phone] Ping Moore PA [facility] DR HEMATOLOGY [place] [address] documented as of this encounter Results * [...] who have questions please contact the health hiv/aids care nurse that requested your imaging first. ? Electronically signed by: Claudio Ward MD, [facility] ([phone]), at 11/17/2020 12:27 PM Narrative 11/17/2020 12:27 [...] patients who have questions please contactthe health hiv/aids care nurse that requested your imaging first. Electronically signed by: Claudio Ward MD, [facility]([phone]), at 11/17/2020 12:27 PM Ismael Wu MD IMG DX ORDERABLES * APTT (10/06/2020 2:59 PM EDT) [facility] Signature Partial Thromboplastin Time 32 25 - 37 sec [facility] Lab Ismael Wu MD HEMATOLOGY ORDERABL ES [facility] [place] [address] * Prothrombin Time (10/06/2020 2:59 PM EDT) Prothrombin Time 11.1 9.4 - 12.5 sec [facility] International Normalization Ratio 1.0 [facility] Comment: An [...] Lab Ismael Wu MD HEMATOLOGY ORDERABL ES [facility] [place] [address] * Basic Metabolic Panel (non-fasting) (10/06/2020 2:59 PM EDT) Glucose 195 65 - 199 mg/dL [facility] Comment:Diabetes: >=200 mg/d L plus symptoms Blood Urea Nitrogen 13 10 - 20 mg/dL [facility] Creatinine 0.98 0.80 - 1.50 mg/dL [facility] Sodium 141 135 - 145 mmol/L [facility] Potassium 4.3 3.5 - 5.0 mmol/L [facility] Comment: Please note: ??Patients with WBC >100,000 may have falsely elevated Potassium levels. ??For accurate Potassium quantification in these patients send serum separator tube (gold top) for subsequent determinations. ??Contact the Clinical Chemistry Laboratory if there are any questions. Chloride 103 98 - 107 mmol/L [facility] Carbon Dioxide 23 22 - 31 mmol/L [facility] Anion Gap 15 5 - 15 mmol/L [facility] Calcium 9.8 8.5 - 10.5 mg/dL [facility] Est Glomerular Filtration Rate 77 >=60 mL/min/1. 73 m?? [facility] [...] MD CHEMISTRY ORDERABLE S Performing Organization Address City/[facility]/ZIP Co de Phone Number [facility] [place] [address] * EKG 12 Lead (10/06/2020 2:46 PM EDT) Ventricular rate 71 BPM MUSE SYSTEM Atrial Rate 71 BPM MUSE SYSTEM P-R Interval 176 ms MUSE SYSTEM QRS Duration 98 ms MUSE SYSTEM Q-T Interval 402 ms MUSE SYSTEM QTC Calculated (Bezet) 436 ms MUSE SYSTEM Calculated P Avalon 62 degrees MUSE SYSTEM Calculated R Avalon -11 degrees MUSE SYSTEM Calculated T Avalon 37 degrees MUSE SYSTEM INTERPRETATION Normal sinus rhythm Normal ECG No previous ECGs available Confirmed by Janki Allred MD ([id number]) on 10/06/2020 3:29:14 PM MUSE SYSTEM 10/06/2020 2:46 PM EDT 10/06/2020 3:29 PM EDT Ismael Wu MD ECG ORDERABLES Performing Organization Address City/[facility]/ZIP Co de Phone Number MUSE SYSTEM * XR Pelvis and Hip [...] who have questions please contact the health hiv/aids care nurse that requested your imaging first. ? Electronically signed by: Shelly Richards MD, [facility] ([phone]), at 09/15/2020 11:17 AM Narrative 09/15/2020 11:17 [...] patients who have questions please contactthe health hiv/aids care nurse that requested your imaging first. Ismael [...] limb documented in this encounter Care Teams Piping Designer Relationship Specialty Start Date End Date Alo Carey DO [address] [place] [address] [place] [address] PCP - General Internal Medicine 08/31/20 07/03/23 documented as of this encounter
--- OUTSIDE RECORDS SUMMARY | 2024-03-26 10:43 | XMS_ITS | Encounter Summary ---
Author Organization [facility] Address [address] [place] [address] Care Team Providers Care Rangelands Conservation Laborer Name Role Phone Unavailable Primary Care Provider Unavailabl e Reason for Visit * (Routine/Next Available) - Receiving Office to Obtain Authorization Specialty Diagnoses / Procedures Referred By Marques livingston Referred To Contact Procedures MR OUTSIDE IMAGES NEURO Unknown, Provider, MD Referral ID Status Reason Start Date Expiration Date Visits Requested Visits Authorized [id number] Receiving Office to Obtain Authorization 1 1 1 Encounter Details Date Type Department Care Team (Latest Contact Info) Description 11/26/2019 - 11/26/2019 0:04 EDT Hospital Encounter [facility] Secondary Reads [place] Discharge Disposition: Home [...] Info) Description 03/30/2024 9:15 EST Office Visit [facility] Ophthalmology - [facility] [address], [place] [address] Uday Reece MD 111 [facility], Level 5 [place] [phone] 04/15/2024 12:30 EST Office Visit [facility] Ophthalmology - [facility] [place] [address], [place] [phone] Barby Guzman MD 111 [facility], Level 5 [place] [address] documented as of this encounter [...]
--- OUTSIDE RECORDS SUMMARY | 2024-03-26 10:43 | XMS_ITS | Encounter Summary ---
Author Organization [facility] Address [address] [place] [address] Care Team Providers Care Manager Architectural Name Role Phone Unknown, Provider Primary Care Provider Tristen Lagos MD Primary Care Provider [phone] Encounter Details Date Type Department Care Team (Late st Contact Info) Description 01/10/2021 Lab Requisition [facility] Pathology & Laboratory Medicine [address] [address] Mala Singh MD [address] [place] [phone] Encounter for other general examination Social History [...] Info) Description 03/30/2024 9:15 EST Office Visit [facility] Ophthalmology - [address] [address] Uday Reece MD [address] [place] [address], [facility] [address] [place] [phone] 04/15/2024 12:30 EST Office Visit [facility] Ophthalmology - [facility] [address] [place], [place] [address] Barby Guzman MD 111 [facility], Level [address] [place] [address] documented as of this encounter [...] explore management options, if applicable. 01/13/2021 15:15 [facility] Final Diagnosis A. STOMACH, ANTRUM, BIOPSY: - Superficial fragments of gastric mucosa with chemical (reactive) gastropathy. B. GASTROESOPHAGEAL JUNCTION, BIOPSY: - Squamocolumnar junctional mucosa with ulcer and underlying granulation tissue. - Negative for fungal organisms on PAS stain. - Negative for viropathic cytologic changes. - Negative for intestinal metaplasia. - Negative for dysplasia. 01/13/2021 15:15 [facility] Attestation By the signature below, the attending physician certifies that they have 1) personally conducted a gross and/or microscopic examination of the described specimen(s), and/or personally interpreted the results of laboratory testing of the described specimen(s), and 2) personally rendered or confirmed the above diagnosis. 01/13/2021 15:15 [facility] at 1515 Clinical History Abnormal imaging; gastritis, esophagitis, hiatal hernia 01/13/2021 15:15 [facility] Gross Description A. Received [...] CASA LINDO(ASCP) 01/11/2021 8:08 01/13/2021 15:15 EST [facility] Performing Lab [facility] 15:15 EST [facility] Scanned Images 01/13/2021 15:15 EST [facility] Tissue ENTIRE ESOPHAGUS / Unknown 01/10/2021 12:24 EST 01/10/2021 23:36 EST Tissue specimen (specimen) ESOPHAGEAL STRUCTURE / Unknown 01/10/2021 12:24 EST 01/10/2021 23:36 EST us Mala Singh MD PATHOLOGY ORDERABLES Fi nal Result [facility] [address] [place] [address] documented in this encounter Visit Diagnoses Diagnosis Encounter for other general examination documented in this encounter Care Teams Manager Architectural Relationship Specialty Start Date End Date Unknown, Provider, PCP - General 03/04/20 12/02/23 Tristen Hunter MD [address] [place] [address] PCP - General Family Medicine - Primary Care 12/03/23 documented as of this encounter
--- OUTSIDE RECORDS SUMMARY | 2024-03-26 10:43 | XMS_ITS | Encounter Summary ---
Author Organization [facility] Address [address] [place] [address] Care Team Providers Care Rn Physician Office Name Role Phone Unknown, Provider Primary Care Provider Tristen Lagos MD Primary Care Provider [phone] Encounter Details Date Type Department Care Team (Late st Contact Info) Description 06/29/2022 Lab Requisition [facility] Pathology & Laboratory Medicine - [address] [address] Outr Resulting Lab, Provider Social History Tobacco [...] Info) Description 03/30/2024 9:15 EST Office Visit [facility] Ophthalmology [address] [phone] Uday Reece MD [address] [place] [address], [address] [place] [phone] 04/15/2024 12:30 EST Office Visit [facility] Ophthalmology [address] [place] [address] Barby Guzman MD 111 [facility], Level [address] [place] [phone] documented as of this encounter Procedures Procedure Name Priority Date/Time Associated Diagnosis Comments TESTOSTERONE Routine 06/29/2022 12:02 EDT documented in this encounter Results * (ABNORMAL) TESTOSTERONE (06/29/2022 12:02 EDT) Testosterone 50(L) 229 - 902 ng/dL 06/29/2022 23:[address] [facility] Blood VENOUS BLOOD / Unknown 06/29/2022 12:02 EDT 06/29/2022 22:[address] [facility] - 06/29/2022 23:28 EDT The results of this assay can be falsely elevated due to the consumption of Biotin. us Provider Outr Resulting Lab CHEMISTRY & BLOOD GA S ORDERABLES Final Result [facility] [address] [place] [address] documented in this encounter Visit Diagnoses Not on filedocumented in this encounter Care Teams Rn Physician Office Relationship Specialty Start Date End Date Unknown, Provider, PCP - General 03/04/20 12/02/23 Tristen Hunter MD [address] [place] [address] PCP - General Family Medicine - Primary Care 12/03/23 documented as of this encounter
--- OUTSIDE RECORDS SUMMARY | 2024-03-26 10:43 | XMS_ITS | Encounter Summary ---
Author Organization [facility] Address [address] [place] [address] Care Team Providers Care Nursing Program Chair Name Role Phone Tristen Hunter MD Primary Care Provider [phone] Encounter Details Date Type Department Care Team (Late st Contact Info) Description 03/20/2024 Lab Requisition [facility] Pathology & Laboratory Medicine - [address] [address] Outr Resulting Lab, Provider Social History Tobacco [...] Info) Description 03/30/2024 9:15 EST Office Visit [facility] Ophthalmology [address] [phone] Uday Reece MD [address] [place] [address], [address] [place] [phone] 04/15/2024 12:30 EST Office Visit [facility] Ophthalmology [address] [address] Barby Guzman MD 111 [facility], [address] [place] [phone] documented as of this encounter Procedures Procedure Name Priority Date/Time Associated Diagnosis Comments TESTOSTERONE, TOTAL AND FREE Routine 03/20/2024 13:30 EST documented in this encounter Results * TESTOSTERONE, TOTAL AND FREE (03/20/2024 13:30 EST) Testosterone 255 229 - 902 ng/dL 03/23/2024 9:41 EST [facility] Comment:The results of this assay can be falsely elevated due to the consumption of Biotin. Sex Hormone Bnd Glob 50.8 17.3 - 71.5 nmol/L 03/23/2024 9:41 EST [facility] Comment:The results of this assay can be falsely lowered due to the consumption of Biotin. Free Testosterone 3.7 2.9 - 10.1 ng/dL 03/23/2024 9:41 EST [facility] Blood VENOUS BLOOD / Unknown 03/20/2024 13:30 EST 03/20/2024 21:47 EST Narrative [facility] - 03/23/2024 9:41 EST This test is not recommended in patients with plasma protein abnormalities. us Provider Outr Resulting Lab CHEMISTRY & BLOOD GA S ORDERABLES Final Result [facility] [address] [place] [address] documented in this encounter Visit Diagnoses Not on filedocumented in this encounter Care Teams Nursing Program Chair Relationship Specialty Start Date End Date Tristen Hunter MD [address] [place] [address] [place] [address] PCP - General Family Medicine - Primary Care 12/03/23 documented as of this encounter
--- OUTSIDE RECORDS SUMMARY | 2024-03-26 10:43 | XMS_ITS | Encounter Summary ---
Author Organization [facility] [place] [address] Care Team Providers Care Internal Control Manager Name Role Phone Unavailable Primary Care Provider Unavailabl e Encounter Details Date Type Department Care Team (Late st Contact Info) Description 11/26/2019 Ancillary Procedure Radiology Library [place] [address] Alo Carey, DO [facility] Medical [facility] [place] [address] Social History Tobacco Use Types [...] 9:30 AM EST Office Visit Hematology/Oncology at [address] [phone] Cl Hess MD [facility] [place] [address] Yessi Renee, [address] HEMATOLOGY AND ONCOLOGY [place], [place] [address] 04/09/2024 10:00 AM EST Infusion Hematology Oncology at [address] [phone] 04/23/2024 9:30 AM EST Office Visit Hematology/Oncology at [address] [phone] Cl Hess MD [facility] [place] [address] [address] HEMATOLOGY AND ONCOLOGY [place], [place] [address] 04/23/2024 10:00 AM EST Infusion Hematology Oncology at [address] [phone] 05/18/2024 4:30 PM EDT TH Visit (TeleHealth) [place] [address] Malachi Rothman MD [facility] DR [place] [address] 09/24/2024 9:00 AM EDT Office Visit Radiation Oncology at [address] [phone] Ping Moore PA [facility] DR HEMATOLOGY [place] [address] documented as of this encounter Procedures Procedure Name Priority Date/Time Associated Diagnosis Comments FILM LIBRARY STORAGE ONLY MR HEAD Routine 11/26/2019 12:00 AM EDT documented in this encounter Results * Film Library- Storage Only MR Head (11/26/2019 12:00 AM EDT) Narrative [facility] - 01/20/2021 12:11 PM EST This exam is auto-finalizing. It's purpose is for storage only. Alo Carey DO [facility] [place] FILM LIBRARY ORD ERABLES [facility] [place] documented in this encounter Visit Diagnoses Not on filedocumented in this encounter
--- OUTSIDE RECORDS SUMMARY | 2024-03-26 10:43 | XMS_ITS | Clinical Summary ---
Author Organization [facility] Address [address] [place] [address] Care Team Providers Care Clothing Supervisor Name Role Phone Tristen Hunter MD Primary Care Provider [phone] Allergies Active Allergy Reactions Criticality Noted Date [...] Tablet by mouth every morning. Active omega 5-syz-rpy-fish oil (FISH OIL) 100-160-1,000 mg capsule Take [...] Encounters Date Type Department Care Team Description 03/20/2024 Lab Requisition [facility] Pathology & Laboratory Medicine - [address] [address] Outr Resulting Lab, Provider 02/07/[address] [address] Barby Guzman MD Diagnostic Imaging Report 12/27/2023 Telephone [place] [address] [place] [address] Wero Avilez MD Diagnostic Imaging Report from Last 3 Months Surgical History Surgery [...] Info) Description 03/30/2024 9:15 EST Office Visit [facility] Ophthalmology [address] [phone] Uday Reece MD [address] [place] [address], [address] [place] [phone] 04/15/2024 12:30 EST Office Visit [place] [address] [place] [address] Barby Guzman MD [address] [place] [address], [address] [place] [address] Health Maintenance Due Date Last Done Comments Hepatitis C Screen 1950 Fall Risk Screening 01/25/2013 RSV Immunization ( o r 60+ Years) (1 - 1-dose 75+ series) 01/25/2023 COVID-19 Vaccine ( season) 2023 01/08/2021, 06/21/2020, 05/20/2020 Medical Devices Implanted Type Area Class A Regional Drivers Device Identifier Shelf Expiration Date Model / Serial / Lot Enroute Carotid Stent Mr Cond 1.5/3t Stent Description:Passive Implant: Make: QD Vision Model: Enroute transcarootid stent Conditional Field Strength: 1.5/3T IGNACIO/B1 + marianela Restrictions: WB IGNACIO 2 W/kg Spatial Gradient Limit: 4000 G/cm Gradient Slew Rate (if listed): Implant (stent) length restrictions (if listed): 135 cm MG R.T. (MR)(R)(MRSO) 12/24/2023 Wallflex Biliary Rx Stent-Conditonal 1.5t/3t Renovagen Description:Passive Implant: Make: [employer] scientific Model: Wallflex RX Biliary Stent Conditional Field Strength: 1.5/3T IGNACIO/B1 + marianela Restrictions: WB IGNACIO 2 W/kg Spatial Gradient Limit: 30 G/cm Gradient Slew Rate (if listed): 200 T/m/s MG R.T.(MR)(MRSO)(R) 12/24/2023 Glass Prosthetic Eye Procedures Procedure Name Priority Date/Time Associated Diagnosis Comments TESTOSTERONE, TOTAL AND FREE Routine 03/20/2024 13:30 EST from Last 3 Months Results * TESTOSTERONE, TOTAL AND FREE (03/20/2024 13:30 EST) Testosterone 255 229 - 902 ng/dL 03/23/2024 9:41 EST [facility] Comment:The results of this assay can be falsely elevated due to the consumption of Biotin. Sex Hormone Bnd Glob 50.8 17.3 - 71.5 nmol/L 03/23/2024 9:41 EST [facility] Comment:The results of this assay can be falsely lowered due to the consumption of Biotin. Free Testosterone 3.7 2.9 - 10.1 ng/dL 03/23/2024 9:41 EST [facility] Blood VENOUS BLOOD / Unknown 03/20/2024 13:30 EST 03/20/2024 21:47 EST Narrative [facility] - 03/23/2024 9:41 EST This test is not recommended in patients with plasma protein abnormalities. us Provider Outr Resulting Lab CHEMISTRY & BLOOD GA S ORDERABLES Final Result [facility] [address] [place] [address] from Last 3 Months Insurance MEDICARE [facility] Care Teams Clothing Supervisor Relationship Specialty Start Date End Date Tristen Hunter MD [address] [place] [address] [place] [address] PCP - General Family Medicine - Primary Care 12/03/23
--- OUTSIDE RECORDS SUMMARY | 2024-03-26 10:43 | XMS_ITS | Encounter Summary ---
Author Organization [facility] Address [address] [place] [address] Care Team Providers Care Pearl Glue Operator Name Role Phone Unknown, Provider Primary Care Provider Tristen Lagos MD Primary Care Provider [phone] Encounter Details Date Type Department Care Team (Late st Contact Info) Description 11/06/2022 Lab Requisition [facility] Pathology & Laboratory Medicine [address] [address] Filiberto Griffin MD [address] [place] [phone] Encounter for other general examination Social [...] Info) Description 03/30/2024 9:15 EST Office Visit [facility] Ophthalmology - [address] [address] Uday Reece MD [address] [place] [address], [facility] [address] [place] [phone] 04/15/2024 12:30 EST Office Visit [facility] Ophthalmology - Main [place] [address] [place], [place] [phone] Barby Guzman MD 111 [facility], Level 5 [place] [address] documented as of this encounter [...] explore management options, if applicable. 11/08/2022 10:43 [facility] Final Diagnosis A. COLON, RANDOM BIOPSIES: - Focal reactive changes. - No features of microscopic colitis present. - Negative for dysplasia and malignancy. 11/08/2022 10:43 [facility] Attestation By the signature below, the attending physician certifies that they have 1) personally conducted a gross and/or microscopic examination of the described specimen(s), and/or personally interpreted the results of laboratory testing of the described specimen(s), and 2) personally rendered or confirmed the above diagnosis. 11/08/2022 10:43 [facility] at 1043 Clinical History Diarrhea, hx colon cancer, colon polyp 11/08/2022 10:43 [facility] Gross Description A. Received in formalin labelled with proper patient identification (initials H, P) and A. Random biopsies are 7 bowden and bowden focally brown tissues (0.5 x 0.4 x 0.1 cm to 0.2 x 0.2 x 0.1 cm). Entirely submitted in A1-A2. Aliyah Rachel 11/07/2022 9:33 11/08/2022 10:43 EDT [facility] Performing Lab [facility] 11/08/2022 10:43 EDT [facility] Scanned Images 11/08/2022 10:43 EDT [facility] Tissue COLON STRUCTURE / Unknown 11/06/2022 9:28 EDT 11/07/2022 8:42 EDT us Filiberto Griffin MD PATHOLOGY ORDERABLES Final Res ult [facility] [address] [place] [address] documented in this encounter Visit Diagnoses Diagnosis Encounter for other general examination documented in this encounter Care Teams Pearl Glue Operator Relationship Specialty Start Date End Date Unknown, Provider, PCP - General 03/04/20 12/02/23 Tristen Hunter MD [address] [place] [address] PCP - General Family Medicine - Primary Care 12/03/23 documented as of this encounter
--- OUTSIDE RECORDS SUMMARY | 2024-03-26 10:43 | XMS_ITS ---
[place] [address] Care Team Providers Care Dish Technician Name Role Phone Tristen Hunter MD Primary Care Provider [phone] Enzyme Status:Enrolled (Active) Start date:07/24/2023 Enrollment date:07/24/2023 Enrollment reason:Enrolled - Currently Fills with Specialty Current support & services provided:Clinical Management, Refill Management Linked medications:lipase/protease/amylase (Active) Linked problems:Malignant neoplasm of head of pancreas (Active) Continued Care and Services Coordination
--- OUTSIDE RECORDS SUMMARY | 2024-03-26 10:43 | XMS_ITS | Encounter Summary ---
Author Organization [facility] Address [address] [place] [address] Care Team Providers Care Wind Farm Operations Manager Name Role Phone Unknown, Provider Primary Care Provider Tristen Lagos MD Primary Care Provider [phone] Encounter Details Date Type Department Care Team (Late st Contact Info) Description 08/01/2022 Lab Requisition [facility] Pathology & Laboratory Medicine [address] [address] Alo Carey, DO [address] [place] [address] ,[facility] [address] [place], [place] [phone] Pleural effusion, not elsewhere classified Social History [...] Info) Description 03/30/2024 9:15 EST Office Visit [facility] Ophthalmology - [address] [address] Uday Reece MD 111 [facility], Level [address] [place] [phone] 04/15/2024 12:30 EST Office Visit [facility] Ophthalmology - [facility] [address] [place], [place] [phone] Barby Guzman MD 111 [facility], [address] [place] [phone] documented as of this encounter Procedures Procedure Name Priority Date/Time Associated Diagnosis Comments NON WEB PROJECT MANAGER/FNA CYTOLOGY Today 08/01/2022 14:31 EDT documented in this encounter Results * NON WEB PROJECT MANAGER/FNA CYTOLOGY (08/01/2022 14:31 EDT) Note to Patient The following pathology results have been interpreted by your pathologist and may be available to you before your health provider has had the opportunity to review them. Please allow time for your provider to receive these results and explore management options, if applicable. 08/02/2022 14:[facility] Final Diagnosis A. PLEURAL FLUID, CYTOLOGIC EVALUATION: - Negative for malignant cells. - Rare reactive mesothelial cells and mixed inflammation with increased eosinophils present. See comment. 08/02/2022 14:50 T [facility] Diagnosis Comment The cytologic features [...] data including fluid cell counts. 08/02/2022 14:50 [facility] Attestation By the signature below, the attending physician certifies that they have personally conducted a gross and/or microscopic examination of the described specimens and rendered or confirmed the above diagnosis. 08/02/2022 14:50 [facility] at 1450 Clinical History Pleural effusion; J90 08/02/2022 14:50 EDT [facility] Gross Description A. 700cc's of opaque stacey fluid (Heparin added) were received and processed by selective cellular enhancement technique. 08/02/2022 14:50 EDT [facility] Performing Lab [facility] 08/02/2022 14:50 EDT [facility] Scanned Images 08/02/2022 14:50 EDT [facility] ZZUNK PLEURAL / Unknown 08/01/2022 14:31 EDT 08/02/2022 6:48 EDT us Alo Carey DO PATHOLOGY ORDERABLES Fin al Result [facility] [address] [place] [address] documented in this encounter Visit Diagnoses Diagnosis Pleural effusion, not elsewhere classified documented in this encounter Care Teams Wind Farm Operations Manager Relationship Specialty Start Date End Date Unknown, Provider, PCP - General 03/04/20 12/02/23 Tristen Hunter MD [address] [place] [address] [place] [address] PCP - General Family Medicine - Primary Care 12/03/23 documented as of this encounter
--- OUTSIDE RECORDS SUMMARY | 2024-03-26 10:43 | XMS_ITS | Encounter Summary ---
Author Organization [facility] Address [address] [place] [address] Care Team Providers Care Distillation Operator Helper Name Role Phone Unavailable Primary Care Provider Unavailabl e Reason for Visit * (Routine/Next Available) - Receiving Office to Obtain Authorization Specialty Diagnoses / Procedures Referred By Marques livingston Referred To Contact Procedures MR OUTSIDE IMAGES NEURO Unknown, Provider, MD Referral ID Status Reason Start Date Expiration Date Visits Requested Visits Authorized [id number] Receiving Office to Obtain Authorization 1 1 1 Encounter Details Date Type Department Care Team (Latest Contact Info) Description 11/26/2019 0:05 EDT - 11/26/2019 23:59 EDT Hospital Encounter [facility] Secondary Reads [place] Discharge Disposition: Home [...] Info) Description 03/30/2024 9:15 EST Office Visit [facility] Ophthalmology - Main [place] [address] [place], [place] [phone] Uday Reece MD 111 [facility], Level [address] [place] [address] 04/15/2024 12:30 EST Office Visit [facility] Ophthalmology - Main [place] [address] [place], [place] [phone] Barby Guzman MD 111 [facility], [address] [place] [address] documented as of this encounter [...]
--- OUTSIDE RECORDS SUMMARY | 2024-03-26 10:43 | XMS_ITS | Encounter Summary ---
[place] [address] Care Team Providers Care Paleontological Helper Name Role Phone YungAlo santiago Primary Care Provider [phone] Encounter Details Date Type Department Care Team (Latest Contact Info) Description 10/06/2020 2:00 PM EDT Clinical [place] [phone] Primary osteoarthritis of left hip; Left leg [...] asked Makeda Navarro To requests records from [facility]. (12-03-2018 CABG)Dr Funes [phone]. [facility] Vascular [facility] (Carotid surgeries) Dr Bustamante [phone]. Dr Borrero aware we have requested records. documented in this encounter Plan of Treatment Upcoming Encounters Date Type Department Care Team (Late st Contact Info) Description 04/09/2024 9:30 AM EST Office Visit Hematology/Oncology at [address] [phone] Cl Hess MD [facility] [place] [address] Yessi Renee APRN [address] [place] [address] DR HEMATOLOGY AND ONCOLOGY [place], [place] [address] 04/09/2024 10:00 AM EST Infusion Hematology Oncology at [address] [phone] 04/23/2024 9:30 AM EST Office Visit Hematology/Oncology at [address] [phone] Cl Hess MD [facility] [place] [place] [address] Yessi Renee APRN [address] [place] [address] DR HEMATOLOGY AND ONCOLOGY [place], [place] [address] 04/23/2024 10:00 AM EST Infusion Hematology Oncology at [address] [phone] 05/18/2024 4:30 PM EDT TH Visit (TeleHealth) [place] [address] Malachi Rothman MD [facility] [place] [address] 09/24/2024 9:00 AM EDT Office Visit Radiation Oncology at [address] [phone] Ping Moore PA [facility] DR HEMATOLOGY [place] [address] documented as of this encounter Procedures Procedure [...] (Bezet) 436 ms MUSE SYSTEM Calculated P [place] 62 degrees MUSE SYSTEM Calculated R [place] -11 degrees MUSE SYSTEM Calculated T [place] 37 degrees MUSE SYSTEM INTERPRETATION Normal sinus [...] limb documented in this encounter Care Teams Paleontological Helper Relationship Specialty Start Date End Date Alo Carey DO [address] [place] [address] [place] [address] PCP - General Internal Medicine 08/31/20 07/03/23 documented as of this encounter
--- OUTSIDE RECORDS SUMMARY | 2024-03-26 10:43 | XMS_ITS | Encounter Summary ---
[place] [address] Care Team Providers Care Acid Recovery Operator Name Role Phone YungAlo santiago Primary Care Provider [phone] Encounter Details Date Type Department Care Team (Latest Contact Info) Description 10/06/2020 2:00 PM EDT Laboratory [place] [address] Primary osteoarthritis of left hip; [...] AM EST Office Visit Hematology/Oncology at [address] [phone] Cl Hess MD [facility] [place] [address] HEMATOLOGY AND ONCOLOGY [place], [place] [address] 04/09/2024 10:00 AM EST Infusion Hematology Oncology at [address] [phone] 04/23/2024 9:30 AM EST Office Visit Hematology/Oncology at [address] [phone] Cl Hess MD [facility] [place] [address] HEMATOLOGY AND ONCOLOGY [place], [place] [address] 04/23/2024 10:00 AM EST Infusion Hematology Oncology at [address] [phone] 05/18/2024 4:30 PM EDT TH Visit (TeleHealth) [place] [address] Malachi Rothman MD [facility] [place] [address] 09/24/2024 9:00 AM EDT Office Visit Radiation Oncology at [address] [phone] Ping Moore PA [facility] [place] [address] documented as of this encounter Procedures Procedure [...] 2:59 PM EDT) T&S only valid at [facility] Comment:This Type and Screen result is only valid at the [facility] Blood 10/06/2020 2:59 PM EDT 10/06/2020 3:07 PM EDT Narrative Resulting Agency Comment Spec In Lab Ismael Wu MD BLOOD BANK LAB ORDShante CHENG [facility] [place] [id number] * ABORH Recheck Status (10/06/2020 2:59 PM EDT) [facility] ABORH Recheck Order Order Placed [facility] ABORH Type Recheck Complete [facility] Blood 10/06/2020 2:59 PM EDT 10/06/2020 3:07 PM EDT Narrative Resulting Agency Comment Spec In Lab Ismael Wu MD BLOOD BANK LAB ORDShante CHENG [facility] [place] [address] * Antibody screen (10/06/2020 2:59 PM EDT) [facility] Ab Screen Interp Negative [facility] Expires at 2359 on: 10/13/2020 [facility] Blood 10/06/2020 2:59 PM EDT 10/06/2020 3:07 PM EDT Narrative Resulting Agency Comment Spec In Lab Ismael Wu MD BLOOD BANK LAB ORDShante CHENG [facility] [place] [address] * Differential, Automated (10/06/2020 2:59 PM EDT) [facility] Neutrophil % 59.3 % [facility] Neutrophil Absolute 3.64 1.70 - 6.10 x10(3)/[facility] Lymph % 28.3 % [facility] Lymphocytes Abs 1.7 0.9 - 3.2 x10(3)/[facility] Monocyte % 9.0 % [facility] Monocyte Abs 0.6 0.3 - 0.9 x10(3)/[facility] Eos % 2.6 % [facility] Eosinophils Abs 0.2 0.0 - 0.4 x10(3)/[facility] Basophil % 0.5 % [facility] Baso Absolute 0.0 0.0 - 0.1 x10(3)/[facility] Immature Gran % 0.30 % [facility] Comment: Immature granulocytes(IG's)percentage and absolute count will include metamyelocytes, myelocytes, and promyelocytes. Blood smears from CBCs yielding IG's will be scanned manually for concordance. If this scan disagrees with the automated IG or if promyelocytes are noted, a manual differential will be performed. Immature Gran Absolute 0.02 0.00 - 0.04 x10(3)/[facility] Blood 10/06/2020 2:59 PM EDT 10/06/2020 3:08 PM EDT Narrative Resulting Agency Comment Spec In Lab Ismael Wu MD HEMATOLOGY ORDERABL ES Performing Organization Address City/[facility]/ZIP Co de Phone Number [facility] [address] * ABO/Rh Typing (10/06/2020 2:59 PM EDT) Pathologist [facility] ABORH Type O Pos [facility] Blood 10/06/2020 2:59 PM EDT 10/06/2020 3:07 PM EDT Narrative Resulting Agency Comment Spec In Lab Ismael Wu MD BLOOD BANK LAB ORDE RABLES [facility] [address] * (ABNORMAL) Hemogram (10/06/2020 2:59 PM EDT) Pathologist [facility] White Blood Cell 6.1 4.0 - 9.5 x10(3)/[facility] Red Blood Cell 4.60 4.58 - 5.54 x10(6)/[facility] Hemoglobin 14.7 13.7 - 16.5 gm/dL [facility] Hematocrit 43.3 40.5 - 48.5 % [facility] Mean Cell Volume 94.1(H) 82.9 - 93.1 [facility] Mean Cell Hemoglobin 32.0 27.5 - 32.[address] [facility] Mean Cell Hemoglobin Concentration 33.9 32.0 - 35.7 gm/dL [facility] Platelet 190 145 - 357 x10(3)/mc L [facility] RDW Standard Deviation 45.3(H) 36.0 - 45.0 [facility] RDW coefficient of variation 13.2 11.4 - 13.8 % [facility] Mean Platelet Volume 10.2 7.6 - 12.9 [facility] NRBC% auto 0.0 % [facility] NRBC Absolute 0.000 0.000 - 0.000 x10(3)/mc L [facility] Blood 10/06/2020 2:59 PM EDT 10/06/2020 3:08 PM EDT Narrative Resulting Agency Comment Spec In Lab Ismael Wu MD HEMATOLOGY ORDERABL ES [facility] [address] * Basic Metabolic Panel (non-fasting) (10/06/2020 2:59 PM EDT) Glucose 195 65 - 199 mg/dL [facility] Comment:Diabetes: >=200 mg/d L plus symptoms Blood Urea Nitrogen 13 10 - 20 mg/dL [facility] Creatinine 0.98 0.80 - 1.50 mg/dL [facility] Sodium 141 135 - 145 mmol/L [facility] Potassium 4.3 3.5 - 5.0 mmol/L [facility] Comment: Please note: ??Patients with WBC >100,000 may have falsely elevated Potassium levels. ??For accurate Potassium quantification in these patients send serum separator tube (gold top) for subsequent determinations. ??Contact the Clinical Chemistry Laboratory if there are any questions. Chloride 103 98 - 107 mmol/L [facility] Carbon Dioxide 23 22 - 31 mmol/L [facility] Anion Gap 15 5 - 15 mmol/L [facility] Calcium 9.8 8.5 - 10.5 mg/dL [facility] Est Glomerular Filtration Rate 77 >=60 mL/min/1. 73 m?? [facility] Comment: This patient? s estimated [...] Lab Ismael Wu MD CHEMISTRY ORDERABLE S [facility] [place] [address] * Prothrombin Time (10/06/2020 2:59 PM EDT) Prothrombin Time 11.1 9.4 - 12.[address] [facility] International Normalization Ratio 1.[address] [facility] Comment: An INR <2.0 indicates [...] Resulting Agency Comment Spec In Lab Ismael uW MD HEMATOLOGY ORDERABL ES Performing Organization Address [facility] Co de Phone Number [facility] [address] * APTT (10/06/2020 2:59 PM EDT) Partial Thromboplastin Time 32 25 - [address] [facility] Comment: The PTT is NOT appropriate for heparin monitoring. Use the Anti-Xa level for heparin monitoring (HEP UFH) or LMWH monitoring (HEP LMW). A PTT less than 37 seconds generally indicates adequate hemostasis. Blood 10/06/2020 2:59 PM EDT 10/06/2020 3:08 PM EDT Narrative Resulting Agency Comment Spec In Lab Ismael Wu MD HEMATOLOGY ORDERABL ES Performing Organization Address [facility] Co de Phone Number [facility] [place] [address] documented in this encounter Visit Diagnoses Diagnosis Primary osteoarthritis of left hip Primary localized osteoarthrosis, pelvic region and thigh Left leg pain Pain in limb documented in this encounter Care Teams Acid Recovery Operator Relationship Specialty Start Date End Date Alo Carey DO [address] [place] [address] [place] [address] PCP - General Internal Medicine 08/31/20 07/03/23 documented as of this encounter
--- OUTSIDE RECORDS SUMMARY | 2024-03-26 10:43 | XMS_ITS | Encounter Summary ---
Author Organization [facility] Address [address] [place] [address] Care Team Providers Care Credit Relationship Manager Name Role Phone Unknown, Provider Primary Care Provider Unava ilable Reason for Visit * Reason Onset Date Comments Paperwork request 03/28/2021 Encounter Details Date Type Department Care Team (Late st Contact Info) Description 03/27/2021 Telephone [facility] Ophthalmology - Counts Include 234 Beds At [facility] [address] [place], [place] [phone] Wero Avilez MD [address] [place] [address], Level [address] [place] [address] Paperwork request Social History Tobacco [...] still has notreceived his paperwork from [facility] that he left to be scanned into our records. He wants the originals back not a copy. PCB to let him know and I did verify his address. * Telephone Encounter - Daria Thomas - 03/27/2021 1019 EST Spoke with patient. States he left notes from [facility] here at the time of his [...] Info) Description 03/30/2024 9:15 EST Office Visit [facility] Ophthalmology - [facility] [address] [place], [place] [address] Uday Reece MD 111 [facility], [address] [place] [address] 04/15/2024 12:30 EST Office Visit [facility] Ophthalmology - [address] [phone] Barby Guzman MD 111 [facility], [address] [place] [phone] documented as of this encounter Visit Diagnoses Not on filedocumented in this encounter Care Teams Credit Relationship Manager Relationship Specialty Start Date End Date Unknown, Provider, PCP - General 03/04/20 12/02/23 documented as of this encounter
--- OUTSIDE RECORDS SUMMARY | 2024-03-26 10:43 | XMS_ITS | Encounter Summary ---
Author Organization [facility] Address [address] [place] [address] Care Team Providers Care Sport Shoe Spike Assembler Name Role Phone Tristen Hunter MD Primary Care Provider [phone] Reason for Visit * Reason Onset Date Comments Diagnostic Imaging Report 02/07/2024 Encounter Details Date Type Department Care Team (Late st Contact Info) Description 02/07/2024 Telephone [facility] Ophthalmology - [facility] [address] [place], [place] [phone] Barby Guzman MD 111 [facility], Level [address] [place] [address] Diagnostic Imaging Report Social History Tobacco Use Types Packs/Day Years Used Date Smoking Tobacco: Never Assessed Sex and Gender Information Value Date Recorded Sex Assigned at Not on file Legal Sex Male 9:11 EDT Gender Identity Male 01/24/2021 12:25 EST Sexual Orientation Not on file documented as of this encounter Miscellaneous Notes * Telephone Encounter - Юлия Downs - 02/10/2024 2147 EST Spoke with the patient I have [...] Info) Description 03/30/2024 9:15 EST Office Visit [address] [phone] Uday Reece MD [address] [place] [phone] 04/15/2024 12:30 EST Office Visit [address] [address] Barby Guzman MD [address] [place] [phone] documented as of this encounter Visit Diagnoses Not on filedocumented in this encounter Care Teams Sport Shoe Spike Assembler Relationship Specialty Start Date End Date Tristen Hunter MD [address] [place] [address] [place] [address] PCP - General Family Medicine - Primary Care 12/03/23 documented as of this encounter
--- OUTSIDE RECORDS SUMMARY | 2024-03-26 10:43 | XMS_ITS | Referral Summary ---
Author Organization [facility] Address [address] [place] [address] Care Team Providers Care Senior Producer Name Role Phone Tristen Hunter MD Primary Care Provider [phone] Encounters Date Type Department Care Team Description 03/20/2024 Lab Requisition [facility] Pathology & Laboratory Medicine - [facility] [address] [place] [address] Outr Resulting Lab, Provider 02/07/2024 Telephone [facility] Ophthalmology - [facility] [address] [place], [place] [address] Barby Guzman MD Diagnostic Imaging Report 12/27/2023 Telephone [facility] Ophthalmology [facility] [address] [place], [place] [phone] Wero Avilez MD Diagnostic Imaging Report from Last 3 Months Allergies Active Allergy [...] Tablet by mouth every morning. Active omega 6-pvc-jaj-fish oil (FISH OIL) 100-160-1,000 mg capsule Take [...] Info) Description 03/30/2024 9:15 EST Office Visit [address] [phone] Uday Reece MD [address] [place] [phone] 04/15/2024 12:30 EST Office Visit [address] [address] Barby Guzman MD [address] [place] [phone] Medical Devices Implanted Type Area Outdoor Power Equipment Mechanic Device Identifier Shelf Expiration Date Model / Serial / Lot Enroute Carotid Stent Mr Cond 1.5/3t Stent Description:Passive Implant: Make: [employer] Model: Enroute transcarootid stent Conditional Field Strength: 1.5/3T IGNACIO/B1 + marianela Restrictions: WB IGNACIO 2 W/kg Spatial Gradient Limit: 4000 G/cm Gradient Slew Rate (if listed): Implant (stent) length restrictions (if listed): 135 cm MG R.T. (MR)(R)(MRSO) 12/24/2023 Wallflex Biliary Rx Stent-Conditonal 1.5t/3t CompleteSet Description:Passive Implant: Make: [place] [employer] Model: Wallflex RX Biliary Stent Conditional Field [...] 255 229 - 902 ng/dL 03/23/2024 9:41 [facility] Comment:The results of this assay can be falsely elevated due to the consumption of Biotin. Sex Hormone Bnd Glob 50.8 17.3 - 71.5 nmol/L 03/23/2024 9:41 [facility] Comment:The results of this assay can be falsely lowered due to the consumption of Biotin. Free Testosterone 3.7 2.9 - 10.1 ng/dL 03/23/2024 9:41 [facility] Blood VENOUS BLOOD / Unknown 03/20/2024 13:30 EST 03/20/2024 21:47 EST Narrative [facility] - 03/23/2024 9:41 EST This test is not recommended in patients with plasma protein abnormalities. us Provider Outr Resulting Lab CHEMISTRY & BLOOD GA S ORDERABLES Final Result [facility] [address] [place] [address] from Last 3 Months Insurance MEDICARE [facility] Care Teams Senior Producer Relationship Specialty Start Date End Date Tristen Hunter MD [address] [place] [address] PCP - General Family Medicine - Primary Care 12/03/23
--- OUTSIDE RECORDS SUMMARY | 2024-03-26 10:43 | XMS_ITS | Encounter Summary ---
Author Organization [facility] Address [address] [place] [address] Care Team Providers Care Occupational Work Experience Teacher Name Role Phone Unknown, Provider Primary Care Provider Tristen Lagos MD Primary Care Provider [phone] Encounter Details Date Type Department Care Team (Late st Contact Info) Description 06/21/2021 Lab Requisition [facility] Pathology & Laboratory Medicine - [address] [address] Outr Resulting Lab, Provider Social History Tobacco [...] Info) Description 03/30/2024 9:15 EST Office Visit [facility] Ophthalmology [address] 7[address] Uday Reece MD [address] [place] [address], [address] [place] [phone] 04/15/2024 12:30 EST Office Visit [facility] Ophthalmology [address] [place] [address] Barby Guzman MD 111 [facility], [address] [place] [phone] documented as of this encounter Procedures Procedure Name Priority Date/Time Associated Diagnosis Comments TESTOSTERONE Routine 06/21/2021 13:16 EDT documented in this encounter Results * (ABNORMAL) TESTOSTERONE (06/21/2021 13:16 EDT) Testosterone 16(L) 229 - 902 ng/dL 06/21/2021 22:58 EDT [facility] Blood VENOUS BLOOD / Unknown 06/21/2021 13:16 EDT 06/21/2021 21:37 EDT Narrative [facility] - 06/21/2021 22:58 EDT The results of this assay can be falsely elevated due to the consumption of Biotin. us Provider Outr Resulting Lab CHEMISTRY & BLOOD GA S ORDERABLES Final Result [facility] [address] [place] [address] documented in this encounter Visit Diagnoses Not on filedocumented in this encounter Care Teams Occupational Work Experience Teacher Relationship Specialty Start Date End Date Unknown, Provider, PCP - General 03/04/20 12/02/23 Tristen Hunter MD [address] [place] [address] PCP - General Family Medicine - Primary Care 12/03/23 documented as of this encounter
--- OUTSIDE RECORDS SUMMARY | 2024-03-26 10:43 | XMS_ITS | Encounter Summary ---
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 Procedures MR ORBIT W WO CONTRAST Wero Avilez MD Phone: tel: fax: [facility] Referral ID Status Reason Start Date Expiration Date Visits Requested Visits Authorized [id number] Authorization Not Required 12/03/2023 1 1 Reason for Visit * Reason Comments Eye Exam * Consult, Test and Treat (Routine) - Receiving Office to Obtain Authorization Specialty Diagnoses / Procedures Referred By Marques livingston Referred To Contact Diagnoses Unspecified visual loss Tristen Hunter MD [address] [place] [address] Phone: tel: fax: [facility] Ophthalmology - Main [place] [address] [place] [address] Phone: tel: fax: Referral ID Status Reason Start Date Expiration Date Visits Requested Visits Authorized [id number] Receiving Office to Obtain Authorization 1 1 Encounter Details Date Type Department Care Team (Late st Contact Info) Description 12/03/2023 8:00 EDT Office Visit [facility] Ophthalmology - Main [address] [phone] Wero Avilez MD 1 [facility], Level 2 [place] [address] Social History Tobacco Use Types Packs/Day Years Used Date Smoking Tobacco: Never Assessed Sex and Gender Information Value Date Recorded Sex Assigned at Not on file Legal Sex Male 9:11 EDT Gender Identity Male 01/24/2021 12:25 EST Sexual Orientation Not on file documented as of this encounter Progress Notes * Wero Avilez MD - 12/03/2023 0800 EDT DIVISION OF OPHTHALMOLOGY [facility] NEURO-OPHTHALMOLOGY FOLLOW-UP 12/03/2023 Mr. Sadler returned for follow-up neuro-ophthalmological examination because of the history of unexplained vision loss. To recall, this a 73-year-old man who suffered vision loss in his right eye in November 2019. The patient was living in [place] at the time. He reported that he [...] of specialty eye care providers including a neuro-clinical document improvement educator. By history it sounds as though the [...] recommended the patient have additional evaluation in [place]. In the interval since patient was last evaluated by me, the patient was seen at [facility] at which point again the patient's vision [...] concerns. Sincerely, Wero Avilez MD Diplomate, the [place] [employer] Neurology matcher operator documented in this encounter Plan of Treatment Upcoming Encounters Date Type Department Care Team (Late st Contact Info) Description 03/30/2024 9:15 EST Office Visit [facility] Ophthalmology [address] [phone] Uday Reece MD [address] [place] [address], [address] [place] [address] 04/15/2024 12:30 EST Office Visit [facility] Ophthalmology [address] [phone] Barby Guzman MD 111 [facility], [address] [place] [address] Pending Results Name Type Priority [...] the sequela of prior inflammation or injury. [id number] Narrative 12/24/2023 16:46 EDT EXAM: MRI ORBITS [...] EXTRACRANIAL SOFT TISSUES: Unremarkable. Resulting Agency Comment [id number] Procedure Note Keon Reyna MD - 12/24/2023 [...] representing the sequela of priorinflammation or injury. [id number] Wero Avilez MD IMG MRI ORDERABLES Final [...] 0.54(L) 0.66 - 1.25 mg/dL 12/03/2023 11:42 [facility] eGFR 104 >60 mL/min/1.73 m2 12/03/2023 11:42 [facility] Blood VENOUS BLOOD / Unknown Venipuncture / Unknown 12/03/2023 10:15 EDT 12/03/2023 11:00 EDT us Wero Avilez MD CHEMISTRY & BLOOD GAS OR DERABLES Final Result Performing Organization Address [facility] Co de Phone Number [facility] [address] [place] [address] * (ABNORMAL) VITAMIN A, S (12/03/2023 10:15 EDT) Vitamin A 27.4(L) 32.5 - 78.0 mcg/dL 12/07/2023 15:06 EDT [facility] Comment: ADDITIONAL INFORMATION This test was developed and its performance characteristics determined by [facility] in a manner consistent with CLIA requirements. This test has not been cleared or approved by the U.S. Food and Drug Administration. Test Performed by: [facility] [address] [place] [address] Guide Rail Cleaner: Sarah Whaley Ph.D.; CLIA# [id number] Blood VENOUS BLOOD / Unknown Venipuncture / Unknown 12/03/2023 10:15 EDT 12/03/2023 10:58 EDT Wero Avilez MD CHEMISTRY & BLOOD GAS OR DERABLES Final Result Performing Organization Address [facility] de Phone Number [facility] [address] [place] [address] * METHYLMALONIC ACID (12/03/2023 10:15 EDT) Methylmalonic Acid, QN, S 0.10 <=0.40 nmol/mL 12/06/2023 12:11 EDT [facility] Comment: ADDITIONAL INFORMATION This test was developed and its performance characteristics determined by [facility] in a manner consistent with CLIA requirements. This test has not been cleared or approved by the U.S. Food and Drug Administration. Test Performed by: [facility] - [address] [address] Guide Rail Cleaner: Sarah Whaley Ph.D.; CLIA# [id number] Blood VENOUS BLOOD / Unknown Venipuncture / Unknown 12/03/2023 10:15 EDT 12/03/2023 10:58 EDT Wero Avilez MD CHEMISTRY & BLOOD GAS OR DERABLES Final Result [address] [address] * VITAMIN B12 (12/03/2023 10:15 EDT) Pathologist [facility] Vitamin B12 331 211 - 911 pg/mL 12/03/2023 12:30 EDT [facility] Blood VENOUS BLOOD / Unknown Venipuncture / Unknown 12/03/2023 10:15 EDT 12/03/2023 11:00 EDT Wero Avilez MD CHEMISTRY & BLOOD GAS OR DERABLES Final Result [facility] [address] [place] [address] * (ABNORMAL) COMPLETE BLOOD COUNT AND DIFFERENTIAL (12/03/2023 10:15 EDT) Pathologist [facility] WBC 4.47 4.00 - 10.40 K/cmm 12/03/2023 11:05 EDT [facility] RBC 3.56(L) 4.36 - 5.78 [...] 0.64(L) 1.09 - 3.30 K/cmm 12/03/2023 11:05 [facility] Absolute Monocytes 0.53 0.10 - 0.80 K/cmm 12/03/2023 11:05 [facility] Absolute Eosinophils 0.12 0.03 - 0.61 K/cmm 12/03/2023 11:05 [facility] ABS Basophils 0.02 0.01 - 0.11 K/cmm 12/03/2023 11:05 EDT [facility] Absolute Immature Grans 0.02 0.00 - 0.06 K/cmm 12/03/2023 11:05 EDT [facility] Type of Differential: Auto 12/03/2023 11:05 EDT [facility] Blood VENOUS BLOOD / Unknown Venipuncture / Unknown 12/03/2023 10:15 EDT 12/03/2023 10:56 EDT us Wero Avilez MD PACKAGES & DNA PROBE ORD ERABLES Final Result [facility] [address] [place], [place] [phone] documented in this encounter Visit Diagnoses Diagnosis [...] Left eye Balance Sphere +2.50 Care Teams Host/Hostess Head Relationship Specialty Start Date End Date Tristen Hunter MD [address] [place] [address] [place] [address] PCP - General Family Medicine - Primary Care 12/03/23 documented as of this encounter
--- OUTSIDE RECORDS SUMMARY | 2024-03-26 10:43 | XMS_ITS | Encounter Summary ---
Author Organization [facility] Address [address] [place] [address] Care Team Providers Care Process Engineering Technician Name Role Phone Unknown, Provider Primary Care Provider Tristen Lagos MD Primary Care Provider [phone] Encounter Details Date Type Department Care Team (Late st Contact Info) Description 11/14/2021 Lab Requisition [facility] Pathology & Laboratory Medicine - [address] [address] Outr Resulting Lab, Provider Social History Tobacco [...] Description 03/30/2024 9:15 EST Office Visit [facility] Ophthalmology [address] [phone] Uday Reece MD [address] [place] [address], [address] [place] [phone] 04/15/2024 12:30 EST Office Visit [facility] Ophthalmology [address] [place] [address] Barby Guzman MD 111 [facility], [address] [place] [phone] documented as of this encounter Procedures Procedure Name Priority Date/Time Associated Diagnosis Comments TESTOSTERONE Routine 11/14/2021 13:20 EDT documented in this encounter Results * (ABNORMAL) TESTOSTERONE (11/14/2021 13:20 EDT) Testosterone 8(L) 229 - 902 ng/dL 11/15/2021 9:58 EDT [facility] Blood VENOUS BLOOD / Unknown 11/14/2021 13:20 EDT 11/14/2021 21:09 EDT Narrative [facility] - 11/15/2021 9:58 EDT The results of this assay can be falsely elevated due to the consumption of Biotin. us Provider Outr Resulting Lab CHEMISTRY & BLOOD GA S ORDERABLES Final Result [facility] [address] [place] [address] documented in this encounter Visit Diagnoses Not on filedocumented in this encounter Care Teams Process Engineering Technician Relationship Specialty Start Date End Date Unknown, Provider, PCP - General 03/04/20 12/02/23 Tristen Hunter MD [address] [place] [address] PCP - General Family Medicine - Primary Care 12/03/23 documented as of this encounter
--- OUTSIDE RECORDS SUMMARY | 2024-03-26 10:43 | XMS_ITS | Encounter Summary ---
[place] [address] Care Team Providers Care Flow Coordinator Name Role Phone Alo Carey Primary Care Provider [phone] Encounter Details Date Type Department Care Team (Late st Contact Info) Description 10/06/2020 Notes [place] [phone] Robert Chaney Social History Tobacco Use Types [...] Patients Undergoing Total Joint Arthroplasty. Study Number: [id number] PI: Rodrick Chisholm Visit: Pre-op Visit Date:10/06/2020 [...] AM EST Office Visit Hematology/Oncology at [address] [phone] Cl Hess MD [facility] [place] [address] Yessi Renee APRN [address] [place] [address] [place] [address] 04/09/2024 10:00 AM EST Infusion Hematology Oncology at [address] [phone] 04/23/2024 9:30 AM EST Office Visit Hematology/Oncology at [address] [phone] Cl Hess MD [facility] [place] [address] Yessi Renee, KENO WRITER / RUNNER [address] [place] [address] [place] [address] 04/23/2024 10:00 AM EST Infusion Hematology Oncology at [address] [phone] 05/18/2024 4:30 PM EDT TH Visit (TeleHealth) [place] [address] Malachi Rothman MD [facility] [place] [address] 09/24/2024 9:00 AM EDT Office Visit Radiation Oncology at [address] [phone] Ping Moore PA [facility] DR [place] [address] documented as of this encounter Visit Diagnoses Not on filedocumented in this encounter Care Teams Flow Coordinator Relationship Specialty Start Date End Date Alo Carey DO [address] [place] [address] [place] [phone] PCP - General Internal Medicine 08/31/20 07/03/23 documented as of this encounter
--- OUTSIDE RECORDS SUMMARY | 2024-03-26 10:43 | XMS_ITS | Encounter Summary ---
Author Organization [facility] Address [address] [place] [address] Care Team Providers Care Press Reader Name Role Phone Unknown, Provider Primary Care Provider Unava ilable Reason for Visit * Reason Onset Date Comments Eye Problem 10/24/2023 Encounter Details Date Type Department Care Team (Late st Contact Info) Description 10/24/2023 Telephone [facility] Ophthalmology - Main [place] [address] [place], [place] [address] Wero Avilez MD [address] [place] [address], [facility] [address] [place] [address] Eye Problem Social History Tobacco [...] Info) Description 03/30/2024 9:15 EST Office Visit [facility] Ophthalmology [address] [phone] Uday Reece MD [address] [place] [phone] 04/15/2024 12:30 EST Office Visit [address] [phone] Barby Guzman MD [address] [place] [phone] documented as of this encounter Visit Diagnoses Not on filedocumented in this encounter Care Teams Press Reader Relationship Specialty Start Date End Date Unknown, Provider, PCP - General 03/04/20 12/02/23 documented as of this encounter
--- OUTSIDE RECORDS SUMMARY | 2024-03-26 10:43 | XMS_ITS | Encounter Summary ---
Author Organization [facility] Address [address] [place] [address] Care Team Providers Care Electric Blanket Packer Name Role Phone Unknown, Provider Primary Care Provider Tristen Lagos MD Primary Care Provider [phone] Encounter Details Date Type Department Care Team (Late st Contact Info) Description 09/25/2022 Lab Requisition [facility] Pathology & Laboratory Medicine - [address] [address] Outr Resulting Lab, Provider Social History Tobacco [...] Info) Description 03/30/2024 9:15 EST Office Visit [facility] Ophthalmology [address] [address] Uday Reece MD [address] [place] [address], [address] [place] [phone] 04/15/2024 12:30 EST Office Visit [facility] Ophthalmology [address] [place] [address] Barby Guzman MD 111 [facility], [address] [place] [phone] documented as of this encounter Procedures Procedure Name Priority Date/Time Associated Diagnosis Comments FECAL BACTERIAL PATHOGENS BY PCR Routine 09/25/2022 10:28 EDT documented in this encounter Results * FECAL BACTERIAL PATHOGENS BY PCR (09/25/2022 10:28 EDT) Salmonella PCR Negative Negative 09/26/2022 10:47 EDT [facility] Shigella/Enteroin vasive E. coli Negative Negative 09/26/2022 10:47 EDT [facility] HN LAB CAMPYLOBACTER PCR Negative Negative 09/26/2022 10:47 EDT [facility] Shiga Toxin PCR Negative Negative 10:47 EDT [facility] Feces SPECIMEN FROM RECTUM / Unknown 09/25/2022 10:28 EDT 09/25/2022 22:21 EDT us Provider Outr Resulting Lab MICROBIOLOGY - GENER AL ORDERABLES Final Result [facility] [address] [place] [address] documented in this encounter Visit Diagnoses Not on filedocumented in this encounter Care Teams Electric Blanket Packer Relationship Specialty Start Date End Date Unknown, Provider, PCP - General 03/04/20 12/02/23 Tristen Hunter MD [address] [place] [address] [place] [address] PCP - General Family Medicine - Primary Care 12/03/23 documented as of this encounter
--- OUTSIDE RECORDS SUMMARY | 2024-03-26 10:43 | XMS_ITS | Encounter Summary ---
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 Procedures MR ORBIT W WO CONTRAST Wero Avilez MD Phone: tel: fax: [facility] Referral ID Status Reason Start Date Expiration Date Visits Requested Visits Authorized [id number] Authorization Not Required 12/03/2023 1 1 Reason for Visit * Radiology Services (Routine/Next Available) - Authorization Not Required Specialty Diagnoses / Procedures Referred By Contac t Referred To Contact Radiology Diagnoses 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 omega 7-qkx-dai-fish oil (FISH OIL) 100-160-1,000 mg capsule Take [...] Description 03/30/2024 9:15 EST Office Visit [facility] Ophthalmology [address] [phone] Uday Reece MD [address] [place] [address] [address] [place] [phone] 04/15/2024 12:30 EST Office Visit [facility] Ophthalmology [address] [phone] Barby Guzman MD [address] [place] [phone] documented as of this encounter Procedures [...] the sequela of prior inflammation or injury. [id number] Narrative 12/24/2023 16:46 EDT EXAM: MRI ORBITS [...] EXTRACRANIAL SOFT TISSUES: Unremarkable. Resulting Agency Comment [id number] Procedure Note Keon Reyna MD - 12/24/2023 [...] representing the sequela of priorinflammation or injury. [id number] Wero Avilez MD IMG MRI ORDERABLES Final [...] 1 documented in this encounter Care Teams Obedience Trainer Relationship Specialty Start Date End Date Tristen Hunter MD [address] [place] [address] [place] [address] PCP - General Family Medicine - Primary Care 12/03/23 documented as of this encounter
--- OUTSIDE RECORDS SUMMARY | 2024-03-26 10:43 | XMS_ITS | Encounter Summary ---
Author Organization [facility] Address [address] [place] [address] Care Team Providers Care Director Pharmaceutical Name Role Phone Tristen Hunter MD Primary Care Provider [phone] Encounter Details Date Type Department Care Team (Late st Contact Info) Description 12/03/2023 Orders Only [facility] Radiology [address] [address] Larisa Underwood MD [address] [place] [phone] Social History Tobacco Use Types Packs/Day Years [...] Info) Description 03/30/2024 9:15 EST Office Visit [facility] Ophthalmology [address] [phone] Uday Reece MD 111 [facility], Level 5 [place] [phone] 04/15/2024 12:30 EST Office Visit [facility] Ophthalmology - Main [place] [address] [place] [address] Barby Guzman MD 111 [facility], Level 5 [place] [phone] documented as of this encounter Visit Diagnoses Not on filedocumented in this encounter Care Teams Director Pharmaceutical Relationship Specialty Start Date End Date Tristen Hunter MD [address] [place] [address] [place] [address] PCP - General Family Medicine - Primary Care 12/03/23 documented as of this encounter
--- OUTSIDE RECORDS SUMMARY | 2024-03-26 10:43 | XMS_ITS | Encounter Summary ---
Author Organization [facility] [address] Care Team Providers Care Roofer Name Role Phone CherryAlo Lon RUTHERFORD Primary Care Provider [phone] Reason for Visit * Auth/Cert Specialty Diagnoses / Procedures Referred By Marques livingston Referred To Contact Diagnoses Left hip osteoarthritis Procedures PRO TOTAL HIP ARTHROPLASTY TOTAL HIP ARTHROPLASTY - POSTERIOR (WRVU 20.72) MODIFIER ACTIS HIP STEM DEPUY MODIFIER PINNACLE ACETABULUM DEPUY Referral ID Status Reason Start Date Expiration Date Visits Re quested Visits Authorized [id number] 1 1 Encounter Details Date Type Department Care Team (Late st Contact Info) Description 10/10/2020 4:45 PM EDT Anesthesia [place] [phone] Natasha Solares MD Chow, Vinca W, MD [facility] [place] [address] Anesthesia Record Procedure Summary Procedure Name Responsible [...] dextrose 5% 100 mL infusion 2 g [id number] ketamine 10 mg/mL or placebo inje ction 57 mg 57 mg INV M48333 patient's specific infusion m ed #2 1 each 0 Syringe [id number] ketamine or placebo 250 mg in sod [...] pacu); metacarpal vein (top of hand), right; sjzp-lqu-dmcrwp catheter system; 20 gauge; 10/12/20; 1206 10/10/20 [...] Procedure Summary Date: 10/10/20 Room / Location: [address] MAIN OR Anesthesia Start: 1644 Anesthesia [...] Anesthesiologist: Natasha Solares MD; Milton Smalls MD HEADLINER INSTALLER: Delmi Garcia CRNA; Madan Luke CRNA Foundry Engineer: Vidal Watson MD Vitals Value Taken Time BP 146/66 10/10/20 2215 Temp 36.2 ??C (97.2 ??F) 10/10/20 2215 Pulse 86 10/10/20 2220 Resp 20 10/10/20 2220 SpO2 97 % 10/10/20 2248 Pain Level 0 10/10/20 2219 Vitals shown include unvalidated device data. Patient Location: PACU/[facility] Level of Consciousness: Awake and Alert [...] of insertion: Other (add comment) Performed by: Resident/HEADLINER INSTALLER: Second Resident/HEADLINER INSTALLER: SRNA: Fellow: Attending Physician: Milton Smalls MD [...] a dye used during vascular procedure at [facility] Medications: MAR and/or home medications have been [...] vascular procedure at [facility] in [place] Labs: Lab Results Component Value Date HGB 14.7 10/06/2020 PLATELET 190 10/06/2020 INR 1.0 10/06/2020 NA 141 10/06/2020 K 4.3 10/06/2020 CREATININE 0.98 10/06/2020 10/06/20 1459 ABORH O Pos Medications: ??? (START ON 10/10/2020) [id number] ketamine 10 mg/mL or placebo injection 57 mg AND (START ON 10/10/2020) INV Q20781 patient's specific med #2 1 each??? (START ON 10/10/2020) S74162 ketamine or placebo 250 mg in sodium chloride 0.9% 250 mL infusion AND (START ON 10/10/2020) INV A85795 patient's specific infusion med #2 1 each??? [...] A-line Access: PIV x2 Vidal Watson MD Foundry Engineer, CA1 (PGY2) Pager # [phone] The patient was informed of the risks, [...] blood products. Plan discussed with attending and HEADLINER INSTALLER. Anesthesia Screening documented in this encounter Plan of Treatment Upcoming Encounters Date Type Department Care Team (Late st Contact Info) Description 04/09/2024 9:30 AM EST Office Visit Hematology/Oncology at [address] [phone] Cl Hess MD [facility] [place] [address] Yessi Renee APRN [address] [place] [address] DR HEMATOLOGY AND ONCOLOGY [place], [place] [phone] 04/09/2024 10:00 AM EST Infusion Hematology Oncology at [address] [phone] 04/23/2024 9:30 AM EST Office Visit Hematology/Oncology at [address] [phone] Cl Hess MD [facility] [place] [address] Yessi Renee APRN [address] [place] [address] DR [place] [address] 04/23/2024 10:00 AM EST Infusion Hematology Oncology at [address] [phone] 05/18/2024 4:30 PM EDT TH Visit (TeleHealth) [place] [address] Malachi Rothman MD [facility] [place] [address] 09/24/2024 9:00 AM EDT Office Visit Radiation Oncology at [address] [phone] Ping Moore PA [facility] DR [place] [address] documented as of this encounter Procedures Procedure Name Priority Date/Time Associated Diagnosis Comments [id number] LINE-ANES ONLY Routine 10/10/2020 5:47 PM EDT documented in this encounter Results * [id number] LINE-ANES ONLY (10/10/2020 5:47 PM EDT) Narrative [...] of insertion: ??Other (add comment) Performed by: Resident/HEADLINER INSTALLER: ?Second Resident/HEADLINER INSTALLER: ??SRNA: ?Fellow: ?Attending Physician: ? Milton Smalls [...] Given 10/10/2020 5:37 PM EDT 2 g [id number] ketamine 10 mg/mL or placebo injection 57 [...] Given 10/10/2020 5:29 PM EDT 57 mg Z40724 ketamine or placebo 250 mg in sodium [...] on Sat10/10/20 at 1807, Until Sat10/10/20 at 2101, Anesthesia Intra-op, Routine Given 10/10/2020 6:07 PM EDT 5 mg fentaNYL (pf) (50 mcg/mL) multi-dose injection Intravenous, PRN, Starting on Sat10/10/20 at 1753, Until Sat10/10/20 at 2101, Anesthesia Intra-op, Routine Given 10/10/2020 5:59 PM EDT 50 mcg Given 10/10/2020 5:53 PM EDT 50 mcg glycopyrrolate (Robinul) (0.2 mg/mL) multi-dose injection Intravenous, PRN, Starting on Sat10/10/20 at 2026, Until Sat10/10/20 at 2101, Anesthesia Intra-op, Routine Given 10/10/2020 8:26 PM EDT 0.8 mg HYDROmorphone (Dilaudid) (2 mg/mL) multi-dose injection solution Intravenous, PRN, Starting on Sat10/10/20 at 1816, Until Sat10/10/20 at 2102, Anesthesia Intra-op, Routine Given 10/10/2020 7:21 PM EDT 0.2 mg Given 10/10/2020 7:09 PM EDT 0.4 mg Given 10/10/2020 6:32 PM EDT 0.4 mg ketorolac (Toradol) (30 mg/mL) injection Intravenous, PRN, Starting on Sat10/10/20 at 2036, Until Sat10/10/20 at 2102, Anesthesia Intra-op, Routine Given 10/10/2020 8:36 PM [...] on Sat10/10/20 at 1915, Until Sat10/10/20 at 2102, Anesthesia Intra-op, Routine Given 10/10/2020 7:46 PM [...] mg documented in this encounter Care Teams Roofer Relationship Specialty Start Date End Date Alo Carey DO [address] [place] [address] [place] [phone] PCP - General Internal Medicine 08/31/20 07/03/23 documented as of this encounter
--- OUTSIDE RECORDS SUMMARY | 2024-03-26 10:43 | XMS_ITS | Encounter Summary ---
[place] [address] Care Team Providers Care Program Director Scouting Name Role Phone Alo Carey Primary Care Provider [phone] Encounter Details Date Type Department Care Team (Late st Contact Info) Description 09/20/2020 Telephone [place] [address] Jennifer Lantigua RN Social History [...] the above instruction given. Jennifer Lantigua RN [facility] Ortho Team * Telephone Encounter - Jennifer [...] Thought you should know. Jennifer Lantigua RN [facility] Ortho Team ----- Message ----- From: Brenda Potts Sent: 09/20/2020 11:47 AM EDT To: [facility] Nurse Subject: 10/10/2020 [place] LEFT JIMI , PLAVIX AND 81MG documented in this encounter Plan of Treatment Upcoming Encounters Date Type Department Care Team (Late st Contact Info) Description 04/09/2024 9:30 AM EST Office Visit Hematology/Oncology at [address] [phone] Cl Hess MD [facility] [place] [address] Yessi Renee APRN [address] [place] [address] DR HEMATOLOGY AND ONCOLOGY [place], [place] [address] 04/09/2024 10:00 AM EST Infusion Hematology Oncology at [address] [phone] 04/23/2024 9:30 AM EST Office Visit Hematology/Oncology at [address] [phone] Cl Hess MD [facility] [place] [address] Yessi Renee, POTATO BUCKER [address] [place] [address] DR HEMATOLOGY [place] [address] 04/23/2024 10:00 AM EST Infusion Hematology Oncology at [address] [phone] 05/18/2024 4:30 PM EDT TH Visit (TeleHealth) [place] [address] Malachi Rothman MD [facility] [place] [address] 09/24/2024 9:00 AM EDT Office Visit Radiation Oncology at [address] [phone] Ping Moore PA [facility] [place] [address] documented as of this encounter Visit Diagnoses Not on filedocumented in this encounter Care Teams Program Director Scouting Relationship Specialty Start Date End Date Alo Carey DO [address] [place] [address] [place] [phone] PCP - General Internal Medicine 08/31/20 07/03/23 documented as of this encounter
--- OUTSIDE RECORDS SUMMARY | 2024-03-26 10:43 | XMS_ITS | Encounter Summary ---
Author Organization [facility] [place] [address] Care Team Providers Care Hospital Recruiter Name Role Phone Unavailable Primary Care Provider Unavailabl e Encounter Details Date Type Department Care Team (Late st Contact Info) Description 08/18/2020 Ancillary Procedure Radiology Library at [facility] [place] [address] Hai Tipton MD [facility] [place] [address] Social History Tobacco Use Types Packs/Day Years [...] AM EST Office Visit Hematology/Oncology at [address] [phone] Cl Hess MD [facility] [place] [address] HEMATOLOGY AND ONCOLOGY [place], [place] [address] 04/09/2024 10:00 AM EST Infusion Hematology Oncology at [address] [phone] 04/23/2024 9:30 AM EST Office Visit Hematology/Oncology at [address] [phone] Cl Hess MD [facility] [place] [address] [address] HEMATOLOGY AND ONCOLOGY [place], [place] [address] 04/23/2024 10:00 AM EST Infusion Hematology Oncology at [address] [phone] 05/18/2024 4:30 PM EDT TH Visit (TeleHealth) [place] [address] Malachi Rothman MD [facility] [place] [address] 09/24/2024 9:00 AM EDT Office Visit Radiation Oncology at [address] [phone] Ping Moore PA [facility] [place] [address] documented as of this encounter Procedures Procedure Name Priority Date/Time Associated Diagnosis Comments FILM LIBRARY STORAGE ONLY DX HIP Routine 08/18/2020 12:00 AM EDT documented in this encounter Results * Film Library- Storage Only DX Hip (08/18/2020 12:00 AM EDT) Narrative VJ FALL - 08/23/2020 8:12 AM EDT This exam is auto-finalizing. It's purpose is for storage only. Hai Tipton MD IMRk FILM LIBRARY ORD ERABLES EUFEMIA [place], [place] documented in this encounter Visit Diagnoses Not on filedocumented in this encounter
--- OUTSIDE RECORDS SUMMARY | 2024-03-26 10:43 | XMS_ITS | Encounter Summary ---
Author Organization [facility] Address [address] [place] [address] Care Team Providers Care Patrol Inspector Name Role Phone Unknown, Provider MD Primary Care Provider Unava ilable Reason for Visit * Reason Comments Eye Exam * Consult (Routine) - Closed Specialty Diagnoses / Procedures Referred By Marques livingston Referred To Contact Ophthalmology Diagnoses Unspecified visual loss Alo Carey, DO [address] [place] [address] ,[address] [place] [address] Phone: tel: fax: [address] [address] Phone: tel: fax: Referral ID Status Reason Start Date Expiration Date Visits Re quested Visits Authorized [id number] Closed 1 1 Encounter Details Date Type Department Care Team (Late st Contact Info) Description 02/17/2021 13:00 EST Office Visit [facility] Ophthalmology Main [address] [phone] Wero Avilez MD [address] [place] [address], Level 2 [place] [address] Social History Tobacco Use Types [...] Avilez MD - 02/17/2021 1300 EST [facility] NEURO-OPHTHALMOLOGY CONSULTATION - 02/17/2021 Patient: Wero Sadler : [address] Carey, Thank you for requesting neuro-ophthalmological consultation on Mr. Sadler because of the history of vision loss in his right eye. This is a 71-year-old man who suffered vision loss in his right eye in November 2019. The patient was living in [place] at the time. He reports that he [...] of specialty eye care providers including a neuro-acid tester. By history it sounds as though the [...] concerns. Sincerely, Wero Avilez MD Diplomate, the [place] [employer] Neu[employer] evp Department of Ophthalmology NEURO-OPHTHALMOLOGY documented in this encounter Plan of Treatment Upcoming Encounters Date Type Department Care Team (Late st Contact Info) Description 03/30/2024 9:15 EST Office Visit [facility] Ophthalmology - [address] [address] Uday Reece MD [address] [place] [address], Level 5 [place] [address] 04/15/2024 12:30 EST Office Visit [facility] Ophthalmology - Main [place] [address] [place], [place] [phone] Barby Guzman MD 111 [facility], Level 5 [place] [address] Pending Results Name Type Priority [...] eye Ishihara 0/14 no vision Care Teams Patrol Inspector Relationship Specialty Start Date End Date Unknown, Provider, PCP - General 03/04/20 12/02/23 documented as of this encounter
--- OUTSIDE RECORDS SUMMARY | 2024-03-26 10:43 | XMS_ITS | Encounter Summary ---
Author Organization [facility] Address [address] [place] [address] Care Team Providers Care Web Marketing Intern Name Role Phone Unknown, Provider Primary Care Provider Tristen Lagos MD Primary Care Provider [phone] Encounter Details Date Type Department Care Team (Late st Contact Info) Description 08/01/2022 Lab Requisition [facility] Pathology & Laboratory Medicine - [address] [address] Outr Resulting Lab, Provider Social History Tobacco [...] Description 03/30/2024 9:15 EST Office Visit [facility] Ophthalmology [address] [phone] Uday Reece MD [address] [place] [address], Level [address] [place] [phone] 04/15/2024 12:30 EST Office Visit [facility] Ophthalmology - [address] [address] Barby Guzman MD 111 [facility], Level [address] [place] [address] documented as of this encounter Procedures Procedure Name Priority Date/Time Associated Diagnosis Comments TOTAL PROTEIN, FLUID Routine 08/01/2022 14:31 EDT LDH, FLUID Routine 08/01/2022 14:31 EDT documented in this encounter Results * TOTAL PROTEIN, FLUID (08/01/2022 14:31 EDT) Total Protein, Fluid 4.3 See Note g/dL 08/01/2022 22:08 EDT [facility] Comment: Pleural fluid Reference range unavailable. Clinical correlation required. This Fluid Total Protein assay was developed and its performance characteristics determined by [facility]. ??It has not been cleared or approved by the Food and Drug Administration. Reference range unavailable. Clinical correlation required. This Fluid Total Protein assay was developed and its performance characteristics determined by [facility]. ??It has not been cleared or approved by the Food and Drug Administration. Fluid PLEURAL / Unknown 08/01/2022 14:31 EDT 08/01/2022 21:31 EDT us Provider Outr Resulting Lab GEN LAB UNIT COLLECT ORDERABLES Final Result [facility] [address] [place] [address] * LDH, FLUID (08/01/2022 14:31 EDT) LDH, Fluid 696 See Note IU/L 08/01/2022 22:08 EDT [facility] Comment: Pleural fluid Reference range unavailable. Clinical correlation required. This Fluid LDH assay was developed and its performance characteristics determined by [facility]. ??It has not been cleared or approved by the [place] Food and Drug Administration. Fluid PLEURAL / Unknown 08/01/2022 14:31 EDT 08/01/2022 21:31 EDT us Provider Outr Resulting Lab GEN LAB UNIT COLLECT ORDERABLES Final Result [facility] [address] [place] [address] documented in this encounter Visit Diagnoses Not on filedocumented in this encounter Care Teams Web Marketing Intern Relationship Specialty Start Date End Date Unknown, Provider, PCP - General 03/04/20 12/02/23 Tristen Hunter MD [address] [place] [address] [place] [address] PCP - General Family Medicine - Primary Care 12/03/23 documented as of this encounter
--- OUTSIDE RECORDS SUMMARY | 2024-03-26 10:43 | XMS_ITS | Encounter Summary ---
[place] [address] Care Team Providers Care Survey Research Center Director Name Role Phone Alo Carey DO Primary Care Provider [phone] Encounter Details Date Type Department Care Team (Latest Contact Info) Description 10/06/2020 3:00 PM EDT Office Visit [place] [address] Ismael Wu MD [facility] DR [place] [address] Primary osteoarthritis of left hip Social History [...] where referrals are placed patient lives in [place], no preference on VNA. Prep for Surgery Advance Directive: Has one (will bring in copy) Recommend referral to Patient Financial Services: (P) No Living arrangement: (P) House Home layout: (P) Two level, Able to live on main level Number of stairs within home: (P) 13 Who will provide post-op care and support: (P) Brother and [id number]-qa-uvt (Damian Sadler and Yaquelin) Who will provide transportation home: (P) Brother (Damian Sadler) Patient's desired discharge disposition: (P) Home with VNA Top 3 nursing choice facilities: (P) None VNA preference: (P) TBD Outpatient PT preference: (P) PT Discharge barriers and challenges: (P) None [...] AM EST Office Visit Hematology/Oncology at [address] [phone] Cl Hess MD [facility] [place] [address] Yessi Renee APRN [address] [place] [address] DR [place] [address] 04/09/2024 10:00 AM EST Infusion Hematology Oncology at [address] [phone] 04/23/2024 9:30 AM EST Office Visit Hematology/Oncology at [address] [phone] Cl Hess MD [facility] [place] [address] Yessi Renee APRN [address] [place] [address] DR HEMATOLOGY AND ONCOLOGY [place], [place] [address] 04/23/2024 10:00 AM EST Infusion Hematology Oncology at [address] [phone] 05/18/2024 4:30 PM EDT TH Visit (TeleHealth) [place]iation [place] [address] Malachi Rothman MD [facility] [place] [address] 09/24/2024 9:00 AM EDT Office Visit Radiation Oncology at [address] [phone] Ping Moore PA [facility] DR HEMATOLOGY [place] [address] documented as of this encounter Visit Diagnoses Diagnosis Primary osteoarthritis of left hip Primary localized osteoarthrosis, pelvic region and thigh documented in this encounter Administered Medications Inactive Administered Medications - up to 3 most recent administrations Medication Order MAR Action Action Date Dose Rate Site mupirocin (BACTROBAN) 2 % ointment 1 each 1 each, Topical (Top), 2 TIMES DAILY, First dose on Sat10/06/20 at 1415, 10 doses, Last dose on Sat10/10/20 at 2100, Apply two times daily to nares for 5 days prior to surgery Given 10/06/2020 3:55 PM EDT 1 each documented in this encounter Care Teams Survey Research Center Director Relationship Specialty Start Date End Date Alo Carey DO [address] [place] [address] [place] [address] PCP - General Internal Medicine 08/31/20 07/03/23 documented as of this encounter
--- OUTSIDE RECORDS SUMMARY | 2024-03-26 10:43 | XMS_ITS | Encounter Summary ---
Author Organization [facility] Address [address] [place] [address] Care Team Providers Care Strategic Debriefing Officer Name Role Phone Unknown, Provider Primary Care Provider Unava ilable Reason for Visit * Reason Comments Eye Problem Encounter Details Date Type Department Care Team (Late st Contact Info) Description 11/29/2021 8:00 EDT Office Visit [facility] Ophthalmology - Main [place] [address] [place], [place] [address] Wero Avilez MD [address] [place] [address], Level 2 [place] [address] Social History Tobacco Use Types [...] were not included. DIVISION OF OPHTHALMOLOGY [facility] NEURO-OPHTHALMOLOGY FOLLOW-UP 11/29/2021 Mr. Sadler returned for follow-up neuro-ophthalmological examination because of the history of vision loss in his right eye. To recall, this a 71-year-old man who suffered vision loss in his right eye in November 2019. The patient was living in [place] at the time. He reported that he [...] of specialty eye care providers including a neuro-impregnator operator. By history it sounds as though [...] for the patient to have consultation in [place] and we will arrange for the same. I spent a total of 30 minutes on the date of this encounter meeting with the patient and reviewing documentation/coordinating care as described in the above note. Please do not hesitate to contact me with any further questions or concerns. Sincerely, Wero Avilez MD Diplomate, the [place] [employer] & Neurology director script Department of Ophthalmology documented in this encounter Plan of Treatment Upcoming Encounters Date Type Department Care Team (Late st Contact Info) Description 03/30/2024 9:15 EST Office Visit [facility] Ophthalmology [address] [address] Uday Reece MD [address] [place] [phone] 04/15/2024 12:30 EST Office Visit [facility] Ophthalmology [address] [phone] Barby Guzman MD [address] [place] [phone] Pending Results Name Type Priority Associated Diagnoses [...] Take 1 Tablet by mouth daily. omega 2-yxq-lus-fish oil (FISH OIL) 100-160-1,000 mg capsule Take [...] Right eye +0.25 Sphere +2.50 Left eye [place] Sphere +2.50 Care Teams Strategic Debriefing Officer Relationship Specialty Start Date End Date Unknown, Provider, PCP - General 03/04/20 12/02/23 documented as of this encounter
[2024-03-26 10:48] LABS: ALT 59 U/L (16-63); AST 28 U/L (15-37); Albumin 2.9 g/dL (3.4-5.0); Alkaline Phosphatase 114 U/L (46-116); Anion Gap 4.9 mmol/L (3-11); BUN 11 mg/dL (7-18); Bilirubin, Total 1.17 mg/dL (0.2-1.0); CO2 33.1 mmol/L (21.0-32.0); CREATININE 0.7 mg/dL (0.70-1.30); Calcium 8.4 mg/dL (8.5-10.1); Chloride 105 mmol/L (98-107); Estimated GFR 95.49 (mL/min/1.73m2); Glucose 112 mg/dL (74-106); Sodium 143 mmol/L (136-145); Total Protein 5.7 g/dL (6.4-8.2)
[2024-03-26 10:55] LABS: Absolute Eosinophil Count 0.13 10^3/uL (0.0-0.7); Absolute Lymphocyte Count 0.65 10^3/uL (1.2-3.4); Atypical Lymphocytes % 0 %; Bands % 0 %
[2024-03-26 10:59] LABS: WBC 1.18 10^3/uL (4.4-10.8)
[2024-03-26 11:00] LABS: Diff Comment Manual Differential
[2024-03-26 11:02] LABS: Absolute Neutrophil Count 0.19 10^3/uL (1.2-6.7)
[2024-03-26 11:08] LABS: Potassium 2.8 mmol/L (3.5-5.1)
== END 2024-03-26 10:29 | disposition home or self-care (01) ==
LOC: LBN 10:28
PROVIDERS: PCP Family Medicine; Visit Provider Internal Medicine Hematology & Oncology
DX: C25.0 Malignant neoplasm of head of pancreas (principal)
CPT/HCPCS: 80053; 85025

== ENCOUNTER 2024-06-25 09:27 | Emergency (ER) | payer MEDICARE, SELFPAY ==
[2024-06-25] VITALS (56 sets, daily range): BP systolic 114–173; BP diastolic 51–84; PULSE 52–67; RESP 11–28; TEMP 36.5; O2SAT 95–99
--- NOTE | 2024-06-25 09:30 | RT.EKG_ITS ---
APPROVED REPORT Exam: Resting ECG Reason for Exam: dizzyness Patient Location: E HR:62 bpm ECG Measurements Heart Rate 62 AXIS WI 158 P 38 QRSd 147 QRS -36 QT 443 T 22 QTc 452 Conclusion Sinus arrhythmia 62 normal axis RBBB no stemi
[2024-06-25 10:04] LABS: Abs Immature Grans 0.01 10^3/uL (0.0-0.06); Absolute Basophil Count 0.03 10^3/uL (0.0-0.2); Absolute Eosinophil Count 0.26 10^3/uL (0.0-0.7); Absolute Lymphocyte Count 0.86 10^3/uL (1.2-3.4); Absolute Monocyte Count 0.56 10^3/uL (0.1-0.8); Absolute Neutrophil Count 3.26 10^3/uL (1.2-6.7); Basophils % 0.6 %; Eosinophils % 5.2 %; HCT 27.5 % (40.0-50.0); HGB 8.1 g/dL (13.5-17.5); Immature Grans % 0.2 %; Lymphocytes % 17.3 %; MCH 28.7 pg (27.0-33.0); MCHC 29.5 % (32.0-36.0); MCV 98 fL (80-95); MPV 9.5 fL (8.0-11.0); Monocytes % 11.2 %; Neutrophils % 65.5 %; Platelet Count 183 10^3/uL (130-400); RBC 2.82 10^6/uL (4.36-5.78); RDW 17.8 % (11.8-14.1); RDW-SD 63.6 fL; WBC 4.98 10^3/uL (4.4-10.8)
[2024-06-25] MEDS: Normal Saline 1,000 ML 1000 ML IV (10:13)
--- NOTE | 2024-06-25 10:15 | ED.GENADUL_ITS ---
Discharge Plan Disposition Patient Disposition: Home Discharge Details Clinical Impression: Low blood pressure Primary Care Provider: Tristen Hunter ED Provider: Brandon Spann Home Meds and New Rx's Prescriptions: No Action folic acid 1 mg tablet 1 mg PO DAILY Patient Comments: TAKE 1 TABLET BY MOUTH ONCE DAILY omega 7-kvt-[id number]-fish oil 300 mg (120 mg- 180mg)-1,000 mg capsule 1 cap PO DAILY Patient Comments: TAKE 1 CAPSULE BY MOUTH ONCE DAILY thiamine HCl (vitamin B1) 100 mg tablet 100 mg PO DAILY Patient Comments: TAKE 1 TABLET BY MOUTH ONCE DAILY potassium chloride 20 mEq tablet,ER particles/crystals 20 meq PO DAILY isosorbide mononitrate 30 mg tablet extended release 24 hr 30 mg PO QAM Patient Comments: TAKE 1 TABLET BY MOUTH IN THE MORNING tamsulosin 0.4 mg capsule 0.8 mg PO QPM Patient Comments: TAKE 2 CAPSULES BY MOUTH NIGHTLY insulin degludec 200 unit/mL (3 mL) insulin pen 28 unit SUBCUT DAILY Patient Comments: INJECT 28 UNITS SUBCUTANEOUSLY ONCE DAILY ROTATE INJECTION SITES insulin aspart U-100 100 unit/mL (3 mL) insulin pen 1 sliding scale dose SUBCUT TID Patient Comments: INJECT UNITS SUBCUTANEOUSLY 4 TIMES DAILY PER SLIDING SCALE BEFORE MEALS AND AT BEDTIME SNACK - PER SLIDING SCALE- 120, GIVE 0 UNITS - 121-150, 5 UNITS - 151-200, 8 UNITS - 201-250, 11 UNITS - 251-300, 14 UNITS - 301-350 lisinopril 40 mg tablet 40 mg PO DAILY Patient Comments: TAKE 1 TABLET BY MOUTH ONCE DAILY Creon 24,000-76,000 -120,000 unit capsule,delayed release(DR/EC) See Rx Instructions PO .COMPLEX Rx Instructions: Take 2 caps with meals and 1 cap with snacks; possible of 9 caps daily total fluticasone propionate 50 mcg/actuation spray,suspension 1 spray INTRANASAL DAILY Patient Comments: INSTILL 1 SPRAY IN EACH NOSTRIL EVERY MORNING omeprazole 20 mg capsule,delayed release(DR/EC) 20 mg PO DAILY Patient Comments: TAKE 1 CAPSULE BY MOUTH DAILY atorvastatin 80 mg tablet 80 mg PO DAILY Patient Comments: TAKE 1 TABLET BY MOUTH DAILY chlorthalidone 25 mg tablet 25 mg PO DAILY PRN Patient Comments: TAKE 1 TABLET BY MOUTH DAILY NEEDED FOR HIGH BLOOD PRESSURE amlodipine 10 mg tablet 10 mg PO DAILY Patient Comments: TAKE 1 TABLET BY MOUTH DAILY carvedilol 25 mg tablet 25 mg PO BID Glucerna Shake Liquid See Rx Instructions .ROUTE .COMPLEX Patient Comments: DRINK 1 BOTTLE TWICE A DAY Rx Instructions: Drink 1 bottle twice a day; ezetimibe 10 mg tablet 10 mg PO DAILY Discharge Instructions Additional Instructions: the low blood pressure measured and present when you arrived in the emergency department. After some IV fluids her pressure became clinic this morning was not elevated. Your lab work is unremarkable for any acute process. Please make sure that you continue your medications and close follow-up with your care team. HPI General Date/Time Provider Initiated Documentation: 06/25/24 09:37 . Limitations to Documentation: no limitations . Information obtained by: patient . HPI Narrative: 74-year-old gentleman with past medical history of pancreatic cancer, not curr ently on therapy, presents for evaluation from the cancer clinic. He reports that he went for an appointment today and was noted blood pressure while. He thinks better. He denies chills. Related Data Home Medications ?Medication ?Instructions ?Recorded ?Confirmed amlodipine 10 mg tablet 10 mg PO DAILY 06/25/24 06/25/24 atorvastatin 80 mg tablet 80 mg PO DAILY 06/25/24 06/25/24 carvedilol 25 mg tablet 25 mg PO BID 06/25/24 06/25/24 chlorthalidone 25 mg tablet 25 mg PO DAILY PRN 06/25/24 06/25/24 ezetimibe 10 mg tablet 10 mg PO DAILY 06/25/24 06/25/24 fluticasone propionate 50 1 spray intranasal DAILY 06/25/24 06/25/24 mcg/actuation nasal spray,suspension folic acid 1 mg tablet 1 mg PO DAILY 06/25/24 06/25/24 insulin aspart U-100 100 unit/mL 1 sliding scale dose subcut TID 06/25/24 06/25/24 (3 mL) subcutaneous pen insulin degludec 200 unit/mL (3 28 unit subcut DAILY 06/25/24 06/25/24 mL) subcutaneous pen isosorbide mononitrate 30 mg 30 mg PO QAM 06/25/24 06/25/24 tablet,extended release 24 hr [id number] See Rx Instructions PO .COMPLEX 06/25/24 06/25/24 24,000-76,000-120,000 unit capsule,delayed rel (Creon) lisinopril 40 mg tablet 40 mg PO DAILY 06/25/24 06/25/24 nut.tx.gluc.intol,lac-free,soy See Rx Instructions .Route .COMPLEX 06/25/2406/03 (Glucerna Shake oral liquid) omega-3 300 mg-dha 120 mg-epa 180 1 cap PO DAILY 06/25/24 06/25/24 mg-fish oil 1,000 mg capsule omeprazole 20 mg capsule,delayed 20 mg PO DAILY 06/25/24 06/25/24 release potassium chloride 20 mEq 20 meq PO DAILY 06/25/24 06/25/24 tablet,extended release(part/cryst) tamsulosin 0.4 mg capsule 0.8 mg PO QPM 06/25/24 06/25/24 thiamine HCl (vitamin B1) 100 mg 100 mg PO DAILY 06/25/24 06/25/24 tablet Allergies Allergy/AdvReac Type Severity Reaction Status Date / Time cyclobenzaprine Allergy Intermediate Other (See Verified 06/25/24 09:43 Comment) General Stated Complaint: Dizzy/Sync MONI: 3 Exam Narrative Exam Narrative: Review of Systems: All systems reviewed & are unremarkable except as noted in HPI and below Well-developed, no acute distress NCAT PERRL, normal conjunctiva RRR no murmur, normal blood pressure Port in left upper chest Unlabored respiratory effort, clear bilaterally Nondistended abdomen soft nontender no focal neurologic deficits Course Vital Signs Vital signs: Vital Signs Temperature 36.5 C 06/25/24 09:38 Pulse 66 06/25/24 09:38 Respiratory Rate 19 06/25/24 09:38 Blood Pressure 129/53 L 06/25/24 09:38 Pulse Oximetry 96 06/25/24 09:38 Temperature 36.5 C 06/25/24 09:38 Temperature Source Tympanic 06/25/24 09:38 Pulse 66 06/25/24 09:38 Respiratory Rate 16 06/25/24 10:07 Respiratory Effort Normal 06/25/24 10:07 Respiratory Depth Normal 06/25/24 10:07 Respiratory Pattern Normal 06/25/24 10:07 Blood Pressure 129/53 L 06/25/24 09:38 Blood Pressure Position Supine 06/25/24 09:38 Pulse Oximetry 96 06/25/24 09:38 Oxygen Delivery Method Room Air 06/25/24 09:38 Oxygen Flow Rate 0 06/25/24 09:38 Pain Level 0 06/25/24 09:38 Lab/Test Results Lab/Test Results: Laboratory Tests Range/Units 06/25/24 09:57 WBC (4.4-10.8) 10^3/uL 4.98 RBC (4.36-5.78) 10^6/uL 2.82 L Hgb (13.5-17.5) g/dL 8.1 L Hct (40.0-50.0) % 27.5 L MCV (80-95) fL 98 H MCH (27.0-33.0) pg 28.7 MCHC (32.0-36.0) % 29.5 L RDW (11.8-14.1) % 17.8 H Plt Count (130-400) 10^3/uL 183 MPV (8.0-11.0) fL 9.5 Immature Gran % % 0.2 Neutrophils % % 65.5 Lymphocytes % % 17.3 Monocytes % % 11.2 Eosinophils % % 5.2 Basophils % % 0.6 Nucleated RBC % (0.0-0.3) % 0.0 Absolute Neutrophils (1.2-6.7) 10^3/uL 3.26 Absolute Lymphocytes (1.2-3.4) 10^3/uL 0.86 L Absolute Monocytes (0.1-0.8) 10^3/uL 0.56 Absolute Eosinophils (0.0-0.7) 10^3/uL 0.26 Absolute Basophils (0.0-0.2) 10^3/uL 0.03 Medical Decision Making Emergent evaluation of hypotension. Patient was recently in the [facility] and referred up here for further evaluation. He reports that when he got there he felt a little lightheaded, but all the symptoms have resolved. He reports that he was eating and drinking normally. He denies any other symptoms of concern at this time. Initial differential includes dehydration, vasovagal episode, doubt sepsis. Patient was resuscitated with a small amount of IV fluids. Blood work was obtained, there is some slight anemia though nothing that would require a blood transfusion at this time. No leukocytosis or neutropenia. No electrolyte derangement or signs of renal dysfunction. The patient's blood pressure improved to the point of hypertension. Remained asymptomatic in the emergency department. At this time I feel that he is stable for discharge home. Recommend close follow-up with PCP and cancer team. No further emergent workup indicated. Quality:SDOH Health Related Social Needs: No Data to Display PFSH All Active Problems (Updated 06/25/24 @ 10:51 by Brandon Spann MD) Low blood pressure (Acute) Social History Smoking/Tobacco Use Status: Never Smoking risk assessment performed?: Yes Alcohol Intake: current Alcohol Intake frequency: a few times a month Alcohol type: beer Drug use: Never Substance use type: does not use PAWSS Have you Been Recently Intoxicated or Drunk Within the Last 30 days?: No Have you Ever Experienced Previous Episodes of Alcohol Withdrawal?: No Have you ever Experienced Withdrawal Seizures?: No Have you ever Experienced Delirium Tremens(DT)s?: No Have you ever undergone Alcohol Rehabilitation Treatment (i.e, inpt ot outpatient treatment programs)?: No Have you ever Experienced Blackouts?: No Have you ever Combined Alcohol with other Downers within the last 90 days?: No Have you ever Combined Alcohol with any other Substance of Abuse during the last 90 days?: No Result: 0
[2024-06-25] MEDS: Normal Saline-STERILE FIELD 0.9% 10 ML SYR (10:19)
[2024-06-25 10:25] LABS: ALT 50 U/L (16-63); AST 31 U/L (15-37); Albumin 2.8 g/dL (3.4-5.0); Alkaline Phosphatase 135 U/L (46-116); Anion Gap 7.8 mmol/L (3-11); BUN 22 mg/dL (7-18); Bilirubin, Total 1.2 mg/dL (0.2-1.0); CO2 26.2 mmol/L (21.0-32.0); CREATININE 0.7 mg/dL (0.70-1.30); Calcium 8.7 mg/dL (8.5-10.1); Chloride 108 mmol/L (98-107); Estimated GFR 95.49 (mL/min/1.73m2); Glucose 214 mg/dL (74-106); Sodium 142 mmol/L (136-145); Total Protein 5.8 g/dL (6.4-8.2)
== END 2024-06-25 11:06 | disposition home or self-care (01) ==
PROVIDERS: Emergency Provider Emergency Medicine; PCP Family Medicine
DX: I95.9 Hypotension, unspecified (principal); R42 Dizziness and giddiness; I45.19 Other right bundle-branch block; I10 Essential (primary) hypertension; E11.9 Type 2 diabetes mellitus without complications; Z85.07 Personal history of malignant neoplasm of pancreas; Z79.4 Long term (current) use of insulin
CPT/HCPCS: 80053; 93005; 96360; 99284; 85025; 93010

== ENCOUNTER 2024-11-12 03:49 | Outpatient (RCR) | payer MEDICARE, SELFPAY ==
[2024-11-05 12:57] LABS: ALT 29 U/L (16-63); AST 23 U/L (15-37); Albumin 2.8 g/dL (3.4-5.0); Alkaline Phosphatase 91 U/L (46-116); Anion Gap 3.2 mmol/L (3-11); BUN 10 mg/dL (7-18); Bilirubin, Total 1.0 mg/dL (0.2-1.0); CO2 28.8 mmol/L (21.0-32.0); Calcium 8.6 mg/dL (8.5-10.1); Chloride 101 mmol/L (98-107); Glucose 321 mg/dL (74-106); Potassium 4.5 mmol/L (3.5-5.1); Sodium 133 mmol/L (136-145); Total Protein 7.0 g/dL (6.4-8.2)
[2024-11-05 12:58] LABS: Abs Immature Grans 0.01 10^3/uL (0.0-0.06); HCT 31.2 % (40.0-50.0); HGB 10.0 g/dL (13.5-17.5); Immature Grans % 0.4 %; MCH 28.4 pg (27.0-33.0); MCHC 32.1 % (32.0-36.0); MCV 89 fL (80-95); MPV 10.1 fL (8.0-11.0); Platelet Count 125 10^3/uL (130-400); RBC 3.52 10^6/uL (4.36-5.78); RDW 16.1 % (11.8-14.1); RDW-SD 52.8 fL; WBC 2.28 10^3/uL (4.4-10.8)
[2024-11-05] MEDS: Normal Saline Flush 10 ML SYR IVP (13:16)
[2024-11-12] MEDS: Normal Saline Flush 10 ML SYR IVP (10:56)
[2024-11-12 11:05] LABS: Abs Immature Grans 0.00 10^3/uL (0.0-0.06); HCT 28.1 % (40.0-50.0); HGB 9.0 g/dL (13.5-17.5); Immature Grans % 0.0 %; MCH 28.3 pg (27.0-33.0); MCHC 32.0 % (32.0-36.0); MCV 88 fL (80-95); MPV 9.4 fL (8.0-11.0); Platelet Count 120 10^3/uL (130-400); RBC 3.18 10^6/uL (4.36-5.78); RDW 15.5 % (11.8-14.1); RDW-SD 50.0 fL; WBC 2.29 10^3/uL (4.4-10.8)
[2024-11-12 11:38] LABS: ALT 39 U/L (16-63); AST 31 U/L (15-37); Albumin 2.6 g/dL (3.4-5.0); Alkaline Phosphatase 106 U/L (46-116); Anion Gap 4.7 mmol/L (3-11); BUN 9 mg/dL (7-18); Bilirubin, Total 0.8 mg/dL (0.2-1.0); CO2 29.3 mmol/L (21.0-32.0); Calcium 7.9 mg/dL (8.5-10.1); Chloride 103 mmol/L (98-107); Glucose 306 mg/dL (74-106); Potassium 3.6 mmol/L (3.5-5.1); Sodium 137 mmol/L (136-145); Total Protein 6.3 g/dL (6.4-8.2)
== END 2024-12-01 23:59 | disposition home or self-care (01) ==
LOC: INF 03:49
PROVIDERS: PCP Family Medicine; Visit Provider Internal Medicine Hematology & Oncology
DX: C25.0 Malignant neoplasm of head of pancreas (principal); Z45.2 Encounter for adjustment and management of vascular access device
CPT/HCPCS: 36591; 80053; 85025

== ENCOUNTER 2024-12-17 00:26 | Outpatient (RCR) | payer MEDICARE, SELFPAY ==
[2024-12-03 07:49] LABS: Abs Immature Grans 0.01 10^3/uL (0.0-0.06); HCT 31.8 % (40.0-50.0); HGB 10.1 g/dL (13.5-17.5); Immature Grans % 0.2 %; MCH 28.9 pg (27.0-33.0); MCHC 31.8 % (32.0-36.0); MCV 91 fL (80-95); MPV 9.4 fL (8.0-11.0); Platelet Count 296 10^3/uL (130-400); RBC 3.50 10^6/uL (4.36-5.78); RDW 16.7 % (11.8-14.1); RDW-SD 55.3 fL; WBC 5.32 10^3/uL (4.4-10.8)
[2024-12-03] MEDS: Normal Saline Flush 10 ML SYR IVP (07:49)
[2024-12-03 08:12] LABS: ALT 38 U/L (16-63); AST 26 U/L (15-37); Albumin 3.0 g/dL (3.4-5.0); Alkaline Phosphatase 97 U/L (46-116); Anion Gap 9.2 mmol/L (3-11); BUN 13 mg/dL (7-18); Bilirubin, Total 1.0 mg/dL (0.2-1.0); CO2 28.8 mmol/L (21.0-32.0); Calcium 8.5 mg/dL (8.5-10.1); Chloride 104 mmol/L (98-107); Glucose 122 mg/dL (74-106); Potassium 4.0 mmol/L (3.5-5.1); Sodium 142 mmol/L (136-145); Total Protein 6.5 g/dL (6.4-8.2)
[2024-12-08 10:40] LABS: Abs Immature Grans 0.02 10^3/uL (0.0-0.06); HCT 31.4 % (40.0-50.0); HGB 9.8 g/dL (13.5-17.5); Immature Grans % 0.4 %; MCH 29.3 pg (27.0-33.0); MCHC 31.2 % (32.0-36.0); MCV 94 fL (80-95); MPV 10.3 fL (8.0-11.0); Platelet Count 186 10^3/uL (130-400); RBC 3.35 10^6/uL (4.36-5.78); RDW 17.4 % (11.8-14.1); RDW-SD 60.7 fL; WBC 5.39 10^3/uL (4.4-10.8)
[2024-12-08] MEDS: Normal Saline Flush 10 ML SYR IVP (11:14)
[2024-12-08 11:15] LABS: ALT 46 U/L (16-63); AST 28 U/L (15-37); Albumin 3.0 g/dL (3.4-5.0); Alkaline Phosphatase 92 U/L (46-116); Anion Gap 6.2 mmol/L (3-11); BUN 10 mg/dL (7-18); Bilirubin, Total 1.2 mg/dL (0.2-1.0); CO2 29.8 mmol/L (21.0-32.0); Calcium 8.3 mg/dL (8.5-10.1); Chloride 103 mmol/L (98-107); Glucose 254 mg/dL (74-106); Potassium 4.4 mmol/L (3.5-5.1); Sodium 139 mmol/L (136-145); Total Protein 6.1 g/dL (6.4-8.2)
== END 2025-01-01 23:59 | disposition home or self-care (01) ==
LOC: INF 00:26
PROVIDERS: PCP Family Medicine; Visit Provider Internal Medicine Hematology & Oncology
DX: C25.0 Malignant neoplasm of head of pancreas (principal); Z45.2 Encounter for adjustment and management of vascular access device
CPT/HCPCS: 36591; 80053; 85025

== ENCOUNTER 2025-02-11 09:47 | Emergency (ER) | payer MEDICARE, SELFPAY ==
[2025-02-11] VITALS (40 sets, daily range): BP systolic 108–205; BP diastolic 31–97; PULSE 57–69; RESP 11–19; TEMP 36.4–36.9; O2SAT 94–99
--- NOTE | 2025-02-11 09:45 | RT.EKG_ITS ---
APPROVED REPORT Exam: Resting ECG Reason for Exam: low b/p Patient Location: E HR:61 bpm ECG Measurements Heart Rate 61 AXIS NC 182 P 47 QRSd 95 QRS 4 QT 417 T 22 QTc 421 Conclusion Sinus rhythm, rate 61 No interval abnormalities No STEMI Compared to prior, RBBB morphology is no longer present
--- NOTE | 2025-02-11 10:16 | W.ED.GENAD ---
Discharge Plan Disposition Patient Disposition: Home Condition: Stable Discharge Details Clinical Impression: Anemia Primary Care Provider: Tristen Hunter ED Provider: Anthony Maldonado Home Meds and New Rx's Prescriptions: Continued folic acid 1 mg tablet 1 mg PO DAILY Patient Comments: TAKE 1 TABLET BY MOUTH ONCE DAILY omega 6-bot-sfj-fish oil 300 mg (120 mg- 180mg)-1,000 mg capsule 1 cap PO DAILY Patient Comments: TAKE 1 CAPSULE BY MOUTH ONCE DAILY thiamine HCl (vitamin B1) 100 mg tablet 100 mg PO DAILY Patient Comments: TAKE 1 TABLET BY MOUTH ONCE DAILY potassium chloride 20 mEq tablet,ER particles/crystals 20 meq PO DAILY isosorbide mononitrate 30 mg tablet extended release 24 hr 30 mg PO QAM Patient Comments: TAKE 1 TABLET BY MOUTH IN THE MORNING tamsulosin 0.4 mg capsule 0.8 mg PO QPM Patient Comments: TAKE 2 CAPSULES BY MOUTH NIGHTLY insulin degludec 200 unit/mL (3 mL) insulin pen 28 unit SUBCUT DAILY Patient Comments: INJECT 28 UNITS SUBCUTANEOUSLY ONCE DAILY ROTATE INJECTION SITES insulin aspart U-100 100 unit/mL (3 mL) insulin pen 1 sliding scale dose SUBCUT TID Patient Comments: INJECT UNITS SUBCUTANEOUSLY 4 TIMES DAILY PER SLIDING SCALE BEFORE MEALS AND AT BEDTIME SNACK - PER SLIDING SCALE- 120, GIVE 0 UNITS - 121-150, 5 UNITS - 151-200, 8 UNITS - 201-250, 11 UNITS - 251-300, 14 UNITS - 301-350 lisinopril 40 mg tablet 40 mg PO DAILY Patient Comments: TAKE 1 TABLET BY MOUTH ONCE DAILY Creon 24,000-76,000 -120,000 unit capsule,delayed release(DR/EC) See Rx Instructions PO .COMPLEX Rx Instructions: Take 2 caps with meals and 1 cap with snacks; possible of 9 caps daily total fluticasone propionate 50 mcg/actuation spray,suspension 1 spray INTRANASAL DAILY Patient Comments: INSTILL 1 SPRAY IN EACH NOSTRIL EVERY MORNING omeprazole 20 mg capsule,delayed release(DR/EC) 20 mg PO DAILY Patient Comments: TAKE 1 CAPSULE BY MOUTH DAILY atorvastatin 80 mg tablet 80 mg PO DAILY Patient Comments: TAKE 1 TABLET BY MOUTH DAILY chlorthalidone 25 mg tablet 25 mg PO DAILY PRN Patient Comments: TAKE 1 TABLET BY MOUTH DAILY NEEDED FOR HIGH BLOOD PRESSURE amlodipine 10 mg tablet 10 mg PO DAILY Patient Comments: TAKE 1 TABLET BY MOUTH DAILY carvedilol 25 mg tablet 25 mg PO BID Glucerna Shake Liquid See Rx Instructions .ROUTE .COMPLEX Patient Comments: DRINK 1 BOTTLE TWICE A DAY Rx Instructions: Drink 1 bottle twice a day; ezetimibe 10 mg tablet 10 mg PO DAILY Discharge Instructions Instructions: Orthostatic hypotension, Hematocrit Test Additional Instructions: You were seen in the emergency department for your isolated low blood pressure reading at [facility] today, you had a normal blood pressure here and were asymptomatic, endorse some dizziness this morning, it is possible you have mild dehydration from your chronic diarrhea or orthostatic hypotension which is common condition of people in your age group. You also were found to have anemia this is possibly due to a very slow GI bleed, I want you to follow-up with your primary care provider and have your hemoglobin rechecked sometime next week and return for any worsening dizziness or weakness, otherwise please follow-up with your routine care at [facility]. Please follow-up with your primary care provider, you have a known stent in your left femoral artery but have some narrowing of your right that should be evaluated by vascular surgeon at some point in the future. Stand Alone Forms: Portal Information Referrals: Tristen Hunter MD [Primary Care Provider, Medicine] Discharge Data Discharge Date/Time-TO BE ENTERED AT DEPARTURE: 02/11/25 16:08 HPI General Date/Time Provider Initiated Documentation: 02/11/25 09:53. HPI Narrative: 75-year-old male patient was sent here from cancer center with an isolated low blood pressure reading allegedly 82/44 there with some mild dizziness upon awakening this morning but not at his office visit. He has history of colon cancer. 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 Patient denies black stool, endorses chronic diarrhea which could be contributing to this. Rates his severity at a 0 out of 10 without any factors that provoke or palliate his condition. Related Data Home Medications ?Medication ?Instructions ?Recorded ?Confirmed amlodipine 10 mg tablet 10 mg PO DAILY 06/25/24 02/11/25 atorvastatin 80 mg tablet 80 mg PO DAILY 06/25/24 02/11/25 carvedilol 25 mg tablet 25 mg PO BID 06/25/24 02/11/25 chlorthalidone 25 mg tablet 25 mg PO DAILY PRN 06/25/24 02/11/25 ezetimibe 10 mg tablet 10 mg PO DAILY 06/25/24 02/11/25 fluticasone propionate 50 1 spray intranasal DAILY 06/25/24 02/11/25 mcg/actuation nasal spray,suspension folic acid 1 mg tablet 1 mg PO DAILY 06/25/24 02/11/25 insulin aspart U-100 100 unit/mL 1 sliding scale dose subcut TID 06/25/24 02/11/25 (3 mL) subcutaneous pen insulin degludec 200 unit/mL (3 28 unit subcut DAILY 06/25/24 02/11/25 mL) subcutaneous pen isosorbide mononitrate 30 mg 30 mg PO QAM 06/25/24 02/11/25 tablet,extended release 24 hr [id number](pork)24,000-76,000-120,000 See Rx Instructions PO .COMPLEX 06/25/24 02/11/25 unit capsule,del rel (Creon) lisinopril 40 mg tablet 40 mg PO DAILY 06/25/24 02/11/25 nut.tx.gluc.intol,lac-free,soy See Rx Instructions .Route .COMPLEX 06/25/24 02/11/25 (Glucerna Shake oral liquid) omega-3 300 mg-dha 120 mg-epa 180 1 cap PO DAILY 06/25/24 02/11/25 mg-fish oil 1,000 mg capsule omeprazole 20 mg capsule,delayed 20 mg PO DAILY 06/25/24 02/11/25 release potassium chloride 20 mEq 20 meq PO DAILY 06/25/24 02/11/25 tablet,extended release(part/cryst) tamsulosin 0.4 mg capsule 0.8 mg PO QPM 06/25/24 02/11/25 thiamine HCl (vitamin B1) 100 mg 100 mg PO DAILY 06/25/24 02/11/25 tablet Allergies Allergy/AdvReac Type Severity Reaction Status Date / Time cyclobenzaprine Allergy Intermediate Other (See Verified 02/11/25 09:54 Comment) General Stated Complaint: Dizzy/Sync MONI: 3 Review of Systems All systems reviewed & are unremarkable except as noted in HPI and below Exam Narrative Exam Narrative: GENERAL APPEARANCE: Well-nourished, non-toxic, awake and alert, atraumatic, no acute distress. SKIN: Warm, pink, dry, intact, without rashes/lesions/ulcerations. HEAD: Normocephalic, atraumatic, normal hair distribution for gender/age. EYES: Normal conjunctiva, no exudates on lids/lashes. ENT: Nares patent, no circumoral cyanosis, no facial swelling NECK: Supple, trachea midline, painless cervical ROM. LUNGS/CHEST: Lungs CTA bilaterally-no rhonchi/rales/wheeze diffusely, non-labored respirations, normal A/P diameter, symmetrical expansion, no chest wall deformity HEART (CV/PV): Regular rate and rhythm without murmur, no peripheral edema, no JVD. ABDOMEN: Soft, non-distended, no guarding, no tenderness. MSK: Normal ROM, no swelling/deformity to bilateral UEs or LEs, moving all extremities without weakness, no cyanosis, spine midline without tenderness, normal curvature. NEURO: Mental Status AAOx4 - alert to person, place, time, events No facial droop, no forehead involvement. Motor: No focal weakness - strength 5/5 in bilateral UEs and LEs, proximal and distal, symmetric. Sensory: sensation intact to light touch globally. Gait NT PSYCH: euthymic, cooperative, pleasant, appropriate speech Course Vital Signs Vital signs: Vital Signs Temperature 36.4 C L 02/11/25 09:52 Pulse 68 02/11/25 09:52 Respiratory Rate 18 02/11/25 09:52 Blood Pressure 111/55 L 02/11/25 09:52 Pulse Oximetry 95 02/11/25 09:52 Temperature 36.4 C L 02/11/25 09:52 Temperature Source Oral 02/11/25 09:52 Pulse 68 02/11/25 09:52 Respiratory Rate 18 02/11/25 09:52 Blood Pressure 111/55 L 02/11/25 09:52 Blood Pressure Position Sitting 02/11/25 09:52 Pulse Oximetry 95 02/11/25 09:52 Oxygen Delivery Method Room Air 02/11/25 09:52 Oxygen Flow Rate 0 02/11/25 09:52 Pain Level 0 02/11/25 09:52 Medical Decision Making This dictation utilizes [id number] dictation software and may contain unedited grammatical errors. 75-year-old male patient was sent here from cancer center with an isolated low blood pressure reading allegedly 82/44 there with some mild dizziness upon awakening this morning but not at his office visit. He has history of colon cancer. 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 Patient denies black stool, endorses chronic diarrhea which could be contributing to this. Rates his severity at a 0 out of 10 without any factors that provoke or palliate his condition. Patients' medical history: Hypertension, history of pancreatic cancer with Whipple procedure, T2DM, secondary malignant neoplasm of liver and intrahepatic bile duct, atherosclerosis, history of alcohol abuse osteoarthritis, history of CVA, history of colon cancer, history of hematuria, history of neoplasm of prostate, legal blindness, Gilbert's syndrome, hypokalemia. Family and social history: Lives at home endorses a good breakfast this morning usually stays well-hydrated. Pertinent exam findings / vital signs include benign cardiopulmonary exam, neuro intact, benign abdomen, normotensive on arrival. Differential / pathologies of concern include GI bleeding, orthostatic hypotension, isolated low blood pressure reading. Diagnostic studies of: - CBC, CMP, CTA ABD/pelvis GI bleed protocol, type and screen. - CBC shows anemia of 7.6, with recent values as high as 10 in December - CMP is unremarkable save for mildly low calcium which could be repleted p.o. - CTA shows cyst in his pancreas which he is aware of-no other findings save for severe stenosis in the proximal right femoral artery recommend he follow-up with his PCP for this for referral to vascular he has a contralateral stent Interventions of: - 1 unit PRBCs. ED Course/Assessment/Plan: 75-year-old male presents with isolated low blood pressure reading at outpatient office visit he is normotensive on arrival I found a new anemia he has a history of of anemia from blood draws, with much higher hemoglobin as recently as December. 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 Patient had some elevated blood pressure readings as high as the 200s on cuff but I did do a manual was 182/78 as result, he is currently finishing infusion and will be discharged home, any intervention after shift by Vale Zuluaga PA-C. Findings not consistent with GI hemorrhage, symptomatic hypotension, new malignancy on CT ABD/Pelvis, infection. Disposition of Anemia. Patient verbalized understanding of the plan and return to ED criteria and engaged in shared decision making. Medical Records Medical records reviewed: Yes I reviewed the patient's medical records. Imaging Data Radiologic Study: Attestation: I personally reviewed and interpreted this imaging study as follows: Imaging: CT Scan Radiologist's impression: EXAM: CT ABDOMEN PELVIS CTA CLINICAL HISTORY: ?GI bleeding. TECHNIQUE: Imaging Protocol: Axial CT angiography was performed with multi-slice acquisition and multi-planar and/or 3D reconstructions. CONTRAST MATERIAL: Intravenous: Omnipaque 350 Contrast volume:100 ml Oral: no COMPARISON: No exams were available for comparison FINDINGS: Aorta: Severe atherosclerotic calcification. No aneurysm. No dissection. Multifocal areas of luminal narrowing. Up to 50 percent stenosis in the infrarenal portion. Common iliac Arteries: Heavily calcified. Multifocal mild stenosis. No evidence of aneurysm. External iliac arteries: Heavily calcified. Multifocal mild stenosis. No evidence of aneurysm. Internal iliac arteries: Heavily calcified. Mild stenosis. No evidence of aneurysm. Common Femoral Arteries: Heavily calcified. Multifocal fzbj-es-rxqkmnny stenosis. No significant stenosis. Superficial femoral arteries: Left femoral artery stent is patent. Severe stenosis of right proximal superficial femoral artery.. Celiac [place]:Mild stenosis at origin. SMA: Mild stenosis at origin Renal Arteries: Mild stenosis at origin. There is a single renal artery perfusing each kidney. [place]: Patent. Venous structures: Patent. Exam is somewhat limited by bilateral hip prostheses which creates artifact. Lung bases:Bibasilar atelectasis. Pleural thickening versus trace pleural effusions. Heart is enlarged. Liver: Normal size. Normal density. No measurable mass. Gallbladder and biliary tract: No evidence of calculi. No gallbladder wall thickening. No biliary dilation. Pancreas: The head portion of the body of the pancreas appeared to have been resected. There is a cyst in the tail of the pancreas measuring 2.1 by 1.3 cm. Spleen: Normal. Kidneys: Normal size, contour and axis. No obstructive uropathy. No masses seen. No evidence of calculi. Adrenal glands: No masses seen. Bladder: Partially obscured by artifact. Mildly over distended. Mild diffuse wall thickening. No evidence of calculi. No evidence of mass. Bowel: Suture material at stomach. Apparent Whipple procedure. Mild amount of biliary air. No obstruction or bowel wall thickening. Peritoneal cavity: No ascites. No focal collection. No mesenteric inflammatory response. Lymph nodes: Within normal limits. Reproductive: Metallic seeds are noted in the prostate. Prostate is mainly obscured by artifact from hip prostheses. Left hydrocele. Soft Tissues:Unremarkable. Bones: No acute findings. Bilateral hip prostheses. Advanced degenerative disc changes. Laminectomy defects from L2 through L5. Severe facet degenerative changes. IMPRESSION: No evidence active GI bleed.. Status post Whipple procedure. 2.1 centimeter cyst in the tail of the pancreas. Comparison with previous exams recommended. Severe atherosclerotic vascular disease. There is a patent left femoral artery stent. There is severe stenosis at the proximal right superficial femoral artery. Findings called to ER provider. Lab Data Lab results reviewed: Yes I reviewed the patient's lab results. Labs: Laboratory Tests Range/Units 02/11/25 02/11/25 10:36 11:25 WBC (4.4-10.8) 10^3/uL 4.11 L RBC (4.36-5.78) 10^6/uL 2.48 L Hgb (13.5-17.5) g/dL 7.6 L Hct (40.0-50.0) % 23.6 L MCV (80-95) fL 95 MCH (27.0-33.0) pg 30.6 MCHC (32.0-36.0) % 32.2 RDW (11.8-14.1) % 17.0 H Plt Count (130-400) 10^3/uL 225 MPV (8.0-11.0) fL 8.9 Immature Gran % % 0.7 Neutrophils % % 71.3 Lymphocytes % % 12.7 Monocytes % % 13.9 Eosinophils % % 1.2 Basophils % % 0.2 Nucleated RBC % (0.0-0.3) % 0.0 Absolute Neutrophils (1.2-6.7) 10^3/uL 2.93 Absolute Lymphocytes (1.2-3.4) 10^3/uL 0.52 L Absolute Monocytes (0.1-0.8) 10^3/uL 0.57 Absolute Eosinophils (0.0-0.7) 10^3/uL 0.05 Absolute Basophils (0.0-0.2) 10^3/uL 0.01 Sodium (136-145) mmol/L 139 Potassium (3.5-5.1) mmol/L 3.9 Chloride (98-107) mmol/L 105 Carbon Dioxide (20.0-31.0) mmol/L 26.3 Anion Gap (3-11) mmol/L 7.7 BUN (9-23) mg/dL 16 Creatinine (0.73-1.18) mg/dL 0.65 L Est GFR (CKD-EPI 2020) (mL/min/1.73m2) 119.10 Glucose (74-106) mg/dL 269 H Calcium (8.3-10.6) mg/dL 7.9 L ABO/Rh O Positive Blood Type Recheck O Positive Antibody Screen NEGATIVE Crossmatch See Detail PFSH All Active Problems (Updated 02/11/25 @ 14:12 by CASA Martinez) Anemia (Chronic) Social History Smoking/Tobacco Use Status: Never Smoking risk assessment performed?: Yes Alcohol Intake: current Alcohol Intake frequency: a few times a month Alcohol type: beer Drug use: Never Substance use type: does not use
[2025-02-11 10:45] LABS: Abs Immature Grans 0.03 10^3/uL (0.0-0.06); HCT 23.6 % (40.0-50.0); HGB 7.6 g/dL (13.5-17.5); Immature Grans % 0.7 %; MCH 30.6 pg (27.0-33.0); MCHC 32.2 % (32.0-36.0); MCV 95 fL (80-95); MPV 8.9 fL (8.0-11.0); Platelet Count 225 10^3/uL (130-400); RBC 2.48 10^6/uL (4.36-5.78); RDW 17.0 % (11.8-14.1); RDW-SD 57.4 fL; WBC 4.11 10^3/uL (4.4-10.8)
[2025-02-11 10:58] LABS: Anion Gap 7.7 mmol/L (3-11); BUN 16 mg/dL (9-23); CO2 26.3 mmol/L (20.0-31.0); Calcium 7.9 mg/dL (8.3-10.6); Chloride 105 mmol/L (98-107); Glucose 269 mg/dL (74-106); Potassium 3.9 mmol/L (3.5-5.1); Sodium 139 mmol/L (136-145)
--- NOTE | 2025-02-11 11:00 | DI.CT_ITS ---
Exam(s) CT ABDOMEN PELVIS CTA EXAM: CT ABDOMEN PELVIS CTA CLINICAL HISTORY: ?GI bleeding. TECHNIQUE: Imaging Protocol: Axial CT angiography was performed with multi- slice acquisition and multi-planar and/or 3D reconstructions. CONTRAST MATERIAL: Intravenous: Omnipaque 350 Contrast volume:100 ml Oral: no COMPARISON: No exams were available for comparison FINDINGS: Aorta: Severe atherosclerotic calcification. No aneurysm. No dissection. Multifocal areas of luminal narrowing. Up to 50 percent stenosis in the infrarenal portion. Common iliac Arteries: Heavily calcified. Multifocal mild stenosis. No evidence of aneurysm. External iliac arteries: Heavily calcified. Multifocal mild stenosis. No evidence of aneurysm. Internal iliac arteries: Heavily calcified. Mild stenosis. No evidence of aneurysm. Common Femoral Arteries: Heavily calcified. Multifocal [id number] stenosis. No significant stenosis. Superficial femoral arteries: Left femoral artery stent is patent. Severe stenosis of right proximal superficial femoral artery.. Celiac [place]:Mild stenosis at origin. SMA: Mild stenosis at origin Renal Arteries: Mild stenosis at origin. There is a single renal artery perfusing each kidney. ALBAN: Patent. Venous structures: Patent. Exam is somewhat limited by bilateral hip prostheses which creates artifact. Lung bases:Bibasilar atelectasis. Pleural thickening versus trace pleural effusions. Heart is enlarged. Liver: Normal size. Normal density. No measurable mass. Gallbladder and biliary tract: No evidence of calculi. No gallbladder wall thickening. No biliary dilation. Pancreas: The head portion of the body of the pancreas appeared to have been resected. There is a cyst in the tail of the pancreas measuring 2.1 by 1.3 cm. Spleen: Normal. Kidneys: Normal size, contour and axis. No obstructive uropathy. No masses seen. No evidence of calculi. Adrenal glands: No masses seen. Bladder: Partially obscured by artifact. Mildly over distended. Mild diffuse wall thickening. No evidence of calculi. No evidence of mass. Bowel: Suture material at stomach. Apparent Whipple procedure. Mild amount of biliary air. No obstruction or bowel wall thickening. Peritoneal cavity: No ascites. No focal collection. No mesenteric inflammatory response. Lymph nodes: Within normal limits. Reproductive: Metallic seeds are noted in the prostate. Prostate is mainly obscured by artifact from hip prostheses. Left hydrocele. Soft Tissues:Unremarkable. Bones: No acute findings. Bilateral hip prostheses. Advanced degenerative disc changes. Laminectomy defects from L2 through L5. Severe facet degenerative changes. IMPRESSION: No evidence active GI bleed.. Status post Whipple procedure. 2.1 centimeter cyst in the tail of the pancreas. Comparison with previous exams recommended. Severe atherosclerotic vascular disease. There is a patent left femoral artery stent. There is severe stenosis at the proximal right superficial femoral artery. Findings called to ER provider. RADIATION DOSE DELIVERED: 1,834.24mGy.cm Total DLP 1,834.24mGy.cm Total DLP 1,834.24mGy.cm Total DLP DATA REPOSITORY: All CT scans at this facility are submitted to the National Radiology Data Registry (NRDR) Dose Index Registry (DIR) with the [employer] (A[employer]). RADIATION OPTIMIZATION: All CT scans at this facility use at least one of these dose optimization techniques: automated exposure control; mA and/or kV adjustment per patient size (includes targeted exams where dose is matched to clinical indication); or iterative reconstruction.
[2025-02-11] MEDS: Calcium Carbonate 1.5 GM TAB PO (11:19)
[2025-02-11] MEDS: Normal Saline - Diluent 50 ML VIAL IJ (12:15)
[2025-02-11] MEDS: Omnipaque 350 MG/ML 100 ML BTL IJ (12:15)
== END 2025-02-11 16:08 | disposition home or self-care (01) ==
PROVIDERS: Emergency Provider Physician Assistant; PCP Family Medicine
DX: D64.9 Anemia, unspecified (principal)
CPT/HCPCS: 99283; 99285; 36415; 80048; 86850; 86900; 86901; 86920; 86945; 93005; 74174; 85025; 93010; J3490; P9016